=== PATIENT | female | born 1990 | race Caucasian/White ===

== ENCOUNTER 2023-06-21 07:28 | Inpatient (IN) | payer OTHER, SELFPAY ==
[2023-06-21] VITALS (51 sets, daily range): BP systolic 93–124; BP diastolic 68–98; PULSE 71–118; RESP 13–28; TEMP 36.6–36.8; O2SAT 98–100; BMI 18.1
--- NOTE | ~2023-06-21 | US_ITS ---
US abdomen limited INDICATION: Elevated liver function tests PROCEDURE: Realtime right upper abdominal ultrasound. COMPARISON: No prior studies for comparison. FINDINGS: The pancreas is normal without focal mass or pancreatic ductal dilation. Liver echotexture is increased, consistent with fatty infiltration. There is normal directional flow in the portal ve in. The gallbladder is normal without stones, gallbladder wall thickening or pericholecystic fluid. Comm on bile duct measures 2 mm. No sonographic Paul's sign. IMPRESSION: 1: Fatty infiltration of the liver. Reviewed, dictated and finalized at location B. H FINISHING RANGE TENDER
--- NOTE | ~2023-06-21 | MR_ITS ---
MRI of the brain Clinical History: Paresthesias Technique: Axial and sagittal T1-weighted images were acquired. These were followed by axial T2-weigh margy, diffusion weighted, gradient, and FLAIR images. Following intravenous administration of 8 cc Mul tiHance gadolinium, T1-weighted fat-sat imaging was performed in the axial, coronal, and sagittal sophie mac. Findings: There is no abnormal signal in the brain parenchyma. No acute infarct, internal hemorrhage, or mass lesion identified. Ventricles and subarachnoid spaces are unremarkable. Orbits are unremarkable. There is mild right eth moid sinus disease. Remaining paranasal sinuses and mastoids are clear. Major intracranial flow voids appear intact. Sagittal midline structures are intact. No abnormal postcontrast enhancement identified. IMPRESSION: No intracranial abnormality. Mild right ethmoid sinus disease. Reviewed, dictated and finalized at [facility]. [place] [facility]
--- NOTE | ~2023-06-21 | MR_ITS ---
MRI of the thoracic spine Clinical History: Paresthesias Technique: Axial T2-weighted and gradient images, and sagittal T1-weighted, T2-weighted, and STIR rafael ges were acquired. Following intravenous administration of 8 cc MultiHance gadolinium, T1-weighted fa t-sat imaging was performed in the axial and sagittal planes. Findings: There is no fracture or subluxation of the thoracic spine. Vertebral bodies maintain normal height and alignment. No suspicious bone marrow signal abnormality seen. Intraosseous hemangioma not ed in the T6 vertebral body. No disc bulge or herniation seen in the thoracic spine. No spinal canal stenosis or cord compression identified. No epidural mass or collection seen. No abnormal signal seen in the spinal cord. No abnormal postcontrast enhancement identified. Paravert ebral soft tissues are unremarkable. Impression: Unremarkable exam. Reviewed, dictated and finalized at [facility]. LEADER Impression: Unremarkable exam.
--- NOTE | ~2023-06-21 | MR_ITS ---
MRI of the cervical spine Clinical History: Paresthesias Technique: Axial T2-weighted and gradient images, and sagittal T1-weighted, T2-weighted, and STIR rafael ges were acquired. Following intravenous administration of 8 cc MultiHance gadolinium, T1-weighted fa t-sat imaging was performed in the axial and sagittal planes. Findings: There is no fracture or subluxation of the cervical spine. Vertebral bodies maintain normal height and alignment. No bone marrow signal abnormality seen. No disc bulge or herniation seen in the cervical spine. No spinal canal stenosis, cord compression, o r neural foraminal narrowing identified. No epidural mass or collection seen. No abnormal signal seen in the spinal cord. No abnormal postcontrast enhancement identified. Paravert ebral soft tissues are unremarkable. Impression: Unremarkable exam. Reviewed, dictated and finalized at location . TIVE WRITING TEACHER Impression: Unremarkable exam.
--- NOTE | ~2023-06-21 | CT_ITS ---
Non-contrast Head CT History: Numbness Technique: Axial non-contrast imaging of the brain was performed. Dose reduction technique was used on this scan by utilizing automated exposure control and iterative reconstruction technique. The dose -length product (DLP) was 605.33 mGy-cm. Findings: There is no evidence of intracranial hemorrhage, mass lesion, or acute infarct. Brain par enchyma appears normal. The ventricles and subarachnoid spaces are normal in size. The calvarium ap pears normal. The visualized paranasal sinuses and mastoid air cells are clear. Impression: No significant abnormality seen. Reviewed, dictated and finalized at location . T GRADE TEACHER Impression: No significant abnormality seen.
--- NOTE | ~2023-06-21 | MR_ITS ---
EXAMINATION: MR lumbar spine wo/w con DATE: 06/22/2023 09:31 INDICATION: Numbness of the upper thighs and feet. TECHNIQUE: Magnetic resonance imaging (MRI) of the lumbar spine was performed without and with 8 mL M ultiHance intravenous contrast. COMPARISON: None FINDINGS: There is 3 degrees dextrocurvature of lumbar spine. There is mild chronic anterior wedging of T12-L2 vertebral bodies, likely physiologic. There is a Schmorl's node of superior endplate of L2. Intervertebral disc heights are normal. The distal spinal cord signal intensity is normal. The conus medullaris is at L2. The following disc levels are specifically discussed: L1-L2: The disc does not extend beyond the endplate margin. There is mild bilateral facet joint osteo arthritis. There is no neural foraminal stenosis. There is no central canal stenosis. L2-L3: The disc does not extend beyond the endplate margin. There is mild bilateral facet joint osteo arthritis. There is no neural foraminal stenosis. There is no central canal stenosis. L3-L4: The disc does not extend beyond the endplate margin. There is mild bilateral facet joint osteo arthritis. There is no neural foraminal stenosis. There is no central canal stenosis. L4-L5: The disc does not extend beyond the endplate margin. There is mild bilateral facet joint osteo arthritis. There is no neural foraminal stenosis. There is no central canal stenosis. L5-S1: The disc is mildly bulging. There is mild bilateral facet joint osteoarthritis. There is mild bilateral neural foraminal stenosis. There is mild central canal stenosis. IMPRESSION: 1. Mild lumbar spondylosis. Reviewed, dictated and finalized at location A. Y REMOVER IMPRESSION: 1. Mild lumbar spondylosis.
--- NOTE | ~2023-06-21 | XR_ITS ---
EXAMINATION: XR barium swallow modified DATE: 06/23/2023 08:39 INDICATION: Oropharyngeal dysphagia. TECHNIQUE: The patient was given barium-containing material of multiple consistencies to swallow by t patric speech pathologist while I performed fluoroscopy. Fluoroscopy exposure time was 0.6 minutes. The n umber of fluoroscopy images saved to the PACS was 1. Dose-area product was 0.399 Gy-cm^2. FINDINGS: The oral stage, pharyngeal stage, and cervical/esophageal stage of the swallow are normal. IMPRESSION: 1. Normal modified barium swallow. 2. Please refer to the speech therapy report for recommendations. Reviewed, dictated and finalized at location A. GENCY MEDICAL TECH
--- NOTE | 2023-06-21 11:08 | ED.GENADULT ---
HPI - General Adult General Chief complaint: Unspecified Stated complaint: leg numbness Time Seen by Provider: 06/21/23 10:26 History of Present Illness HPI narrative: Ester León is a 33 y/o female with no PMHx / does not take any medications daily who presents with reports of having numbness tingling to her fingertips for about 2 weeks. She states that she was evaluated at an OSH in [place] and was told that she might have carpel tunnel syndrome. She comes here today because she is having worsening numbness to her lower extremities. She states that she has had numbness to her thighs for about 1 year and now over the past two weeks the numbness sensation has moved down her legs and now having severe pain to her toes. She is ambulatory but states it is getting more difficult. Denies any known fever/chills/ cough/ shortness of breath / chest pain. Alert and oriented X 4 Related Data Allergies Allergy/AdvReac Type Severity Reaction Status Date / Time latex Allergy Rash Verified 06/21/23 12:32 Review of Systems Review of Systems: CONSTITUTIONAL: Denies fever, chills, or sweats. EYES: Denies visual changes, redness, or discharge. ENT: Denies rhinorrhea, congestion, sore throat, or otalgia. CARDIOVASCULAR: Denies chest pain, palpitations, or edema. RESPIRATORY: Denies cough or dyspnea. GASTROINTESTINAL: Denies abdominal pain, nausea, vomiting, or diarrhea. GENITOURINARY: Denies dysuria or hematuria. SKIN: Denies rash or itching. MUSCULOSKELETAL: Denies back pain, joint pain, or myalgia. NEUROLOGIC: Denies headache, Complains of numbness to her finger tips and now numbness to her thighs down her lower extremities started about 1 year ago/ getting worse over the past 2 weeks. PSYCHIATRIC: Denies anxiety or depression. Exam Narrative: GENERAL: appears frail/ pale, and in no acute distress. HEAD: Normocephalic, atraumatic. EYES: PERRLA and EOMI. ENT: Nares clear, no rhinorrhea or epistaxis. Mucous membranes moist. Oropharynx without tonsillar hypertrophy exudate or other lesions. NECK: Supple. No adenopathy or masses. No carotid bruits or JVD CHEST: Clear to auscultation. No respiratory distress. No wheezes rales or rhonchi HEART: Regular rate and rhythm. No murmur heard. Normal peripheral pulses. ABDOMEN: Soft, nontender, nondistended, normal active bowel sounds. EXTREMITIES: Normal range of motion. No edema. SKIN: Warm, dry, no rash. NEURO: alert and oriented X 4 - no focal deficit PSYCH: Normal mood and affect. Course Vital Signs Vital signs: Vital Signs Temperature 36.8 C 06/21/23 07:38 Pulse Rate 118 H 06/21/23 07:38 Respiratory Rate 20 06/21/23 07:38 Blood Pressure 112/91 H 06/21/23 07:38 Pulse Oximetry 99 06/21/23 07:38 Oxygen Delivery Room Air 06/21/23 07:38 Temperature 36.8 C 06/21/23 07:38 Pulse Rate 71 06/21/23 16:16 Respiratory Rate 19 06/21/23 16:16 Blood Pressure 117/77 06/21/23 16:16 Pulse Oximetry 100 06/21/23 16:16 Oxygen Delivery Room Air 06/21/23 07:38 Medical Decision Making [facility] Narrative Medical decision making narrative: On exam pt is alert and oriented X 4 She explains having this numbness/decrease sensation that started about a year ago and has become much worse over the past 2 weeks No focal defict - she states the numbness is to her bilateral fingertips and her bilateral thighs down her legs causing pain to her toes. strong pedal push / no lower extremity drift on exam but pt is weak with resisting pressure on her legs bilaterall Heal to abdi is intact but pt is slow to perform Concern for: vitamin deficiency/ multiple sclerosis/ neurological deficit/ Plan to check head ct/ basic labs and consult with Neurology. CBC- stable CMP - hypokalemia - 2.6 lipase - negative UA- trace leuks/ketones/wbc 11-20 COVID- negative RSV- positive Flu- negative Brain CT - No significant abnormality Called and talked with Neurologist Sindi
[2023-06-21 11:27] LABS: Basophils Percent Auto 0.5 % (0.2-1.2); Eosinophils Percent Auto 0.1 % (0-4.4); Hematocrit 44.1 % (37.0-47.0); Hemoglobin 15.5 g/dL (12.0-15.0); Immature Granulocyte Absolute 0.02 K/mm3 (0.00-0.031); Immature Granulocyte Percent A 0.3 % (0-0.5); Lymphocytes Absolute Auto 0.93 K/mm3 (0.9-3.2); Lymphocytes Percent Auto 12.4 % (18.3-44.2); Mean Corpuscular HGB Conc 35.1 g/dl (32-36); Mean Corpuscular Hemoglobin 36.7 pg (26-34); Mean Corpuscular Volume 104.5 fl (80-100); Mean Platelet Volume 10.4 fl (7.4-10.4); Monocytes Absolute Auto 0.5 K/mm3 (0.1-0.6); Monocytes Percent Auto 6.5 % (2.6-8.5); Neutrophils Percent Auto 80.2 % (45.5-73.1); Platelet Count Result 155 k/mm3 (150-375); Red Blood Count 4.22 M/mm3 (4.2-5.4); White Blood Count 7.5 K/mm3 (4.5-10.0)
[2023-06-21 11:42] LABS: Lactic Acid Reflex 1.8 mmol/L (0.7-2.0)
[2023-06-21 11:44] LABS: Alanine Aminotransferase 58 U/L (6-35); Albumin Level 3.4 g/dL (3.5-5.1); Alkaline Phosphatase 113 U/L (38-126); Anion Gap 8 mmol/L (8-16); Aspartate Amino Transferase 105 U/L (14-36); Blood Urea Nitrogen 3 mg/dL (7-17); Calcium 8.3 mg/dL (8.4-10.2); Carbon Dioxide 33 mmol/L (22-30); Chloride 94 mmol/L (98-107); Estimated CRCL calculation 96 ml/min; Estimated Glomerular Filt Rate > 60; Glucose 107 mg/dL (65-110); Lipase 51 U/L (23-300); Potassium 2.6 mmol/L (3.4-5.0); Sodium 135 mmol/L (137-145)
[2023-06-21] MEDS: SODIUM CHLORIDE 0.9% IV 1,000 ML 999 ML IV CONT (12:09)
[2023-06-21 12:10] LABS: Appearance Urine Turbid (Clear); Bacteria Urine None Seen /hpf; Bilirubin Urine 2+ (Negative); Blood Urine Negative (Negative); Color Urine Dark Yellow (Yellow); Glucose Urine UA Negative (Negative); Granular Casts Urine Present /lpf; Hyaline Casts Urine Present /lpf; Ketones Urine Trace mg/dL (Negative); Leukocyte Esterase Ur Trace LEU/UL (Negative); Nitrate Urine Negative (Negative); Non Pathogenic Casts >20; Protein Urine 1+ mg/dL (Negative); Squamous Epithelial Cell Urine Many /hpf (Few); White Blood Cell Casts Urine Present /lpf; pH Urine 5.5 (5.0-9.0)
[2023-06-21 12:16] LABS: Add Urine Microscopic? YES
--- NOTE | 2023-06-21 12:23 | PC.NURSE ---
EDP made aware patient refusing kcl tablets, stating she is unable to swallow them. VORB to attempt kcl powder.
[2023-06-21] MEDS: POTASSIUM CHLORIDE 20 MEQ PACKET (FOR LIQUID) 60 MEQ PO (12:28)
[2023-06-21 12:53] LABS: Influenza A QL RT-PCR Negative (Negative); Influenza B QL RT-PCR Negative (Negative); RSV RNA, RT-PCR Positive (Negative); SARS-CoV-2 RNA PCR Negative (Negative)
[2023-06-21] MEDS: KETOROLAC 30 MG/ML VIAL (*BKC) IV PUSH (13:22)
--- NOTE | 2023-06-21 15:14 | PM.IMHP ---
H&P: HPI History of Present Illness Date/Time: 06/21/23 14:30 Chief Complaint: Weakness and paresthesias. Narrative: This is a pleasant 33-year-old female smoker with depression anxiety presented to the emergency department via private vehicle for evaluation of weakness and paresthesias. The patient provides the following history. About 1 year ago she developed sensation changes and numbness in the upper anterior thighs bilaterally. More recently she has developed paresthesias in the fingertips and pain and numbness to both feet. 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 She has not had any falls, injury, or traumas. She also denies head, neck, and back pain. No bowel incontinence or bladder retention. Her vital signs were stable on arrival to the ED.. Labs were significant for a hemoglobin of 15.5, MCV 104.5, sodium 135, potassium 2.6, chloride 94, carbon dioxide 33, BUN 3, creatinine 0.50, calcium 3.8, AST 105, ALT 58, albumin 3.4. Brain CT showed no significant abnormalities. With further questioning she reports that she has not had much of an appetite for a couple of years and she does not seem to eat much at home. She has frequent loose stools but they have slowed down, now 1 to 2 times per day. She is about 30 lb below her typical weight. Food just does not taste good to her. She denies having a version to food and has no history of eating disorder. She also denies epigastric and abdominal pain, nausea, and vomiting. She has no history of peptic ulcers, thyroid disease, liver disease, or anemia. No headache, visual changes, difficulty speaking or swallowing, focal weakness, chest pain, or palpitations. No concerns for or known exposure to HIV or hepatitis. No family history of demyelinating disease. Review of Systems Review of Systems: Twelve systems were reviewed. She has had a bit of a cough but that is improving. Reports her 6-year-old son has had a cold recently. No fever, chills, or sweats. No headache. No dysuria. Just finished her period. Except as documented, all other systems were reviewed and are negative. [facility] Past Medical History Medical History (Updated 06/21/23 @ 21:30 by Yolanda Lee PA-C) Mitral valve prolapse Surgical History Surgical History (Updated 06/21/23 @ 21:27 by Yolanda Lee PA-C) No history of previous surgery Family History Family History Mother Heart attack Grandparent Cancer Social History Social History (Updated 06/21/23 @ 21:27 by Yolanda Lee PA-C) Social History: Surrogate medical decision maker: Jorge Luis Centeno, significant other. Code status: Full code. Smoking packs per day: 0.5 Smoking cigarettes per day: 10.0 Years smoked: 16 Smoking pack-years: 8.00 Smoking status: Current every day smoker Tobacco type: cigarettes Alcohol intake: current Drinks per week: 6 Substance use: current Substance use type: marijuana Last use: 06-20-2023 Lack of Transportation: No Lack of Food: Never True Current Housing: I Have Housing Concerned About Future Housing: No Difficulty Paying Gas/Electric Bills: No Difficulty Paying for Meds: No Currently Unemployed: No Education: Decline to Answer Difficulty w/ Childcare or Family Care: No Spiritual care concerns: No Meds Home Medications and Allergies Home Medications Medication Instructions Recorded Confirmed Type No Home Medications 06/21/23 06/21/23 History Allergies Allergy/AdvReac Type Severity Reaction Status Date / Time latex Allergy Rash Verified 06/21/23 12:32 Vital Signs Vital Signs - 24 hr 06/21/23 07:38 06/21/23 09:47 06/21/23 10:01 Temperature 98.3 F Pulse Rate 118 H Respiratory Rate 20 Blood Pressure 112/91 H
[2023-06-21] MEDS: CYCLOBENZAPRINE HCL 10 MG TABLET PO (16:13)
[2023-06-21] MEDS: HYDROcodone/acetaminophen (*CRX) 5-325 MG TABLET 1 TAB PO ×2 (16:13→22:02)
[2023-06-21 16:59] LABS: Creatine Kinase 41 U/L (30-135); Magnesium 1.4 mg/dL (1.6-2.3)
[2023-06-21 17:00] LABS: Anion Gap 9 mmol/L (8-16); Blood Urea Nitrogen 3 mg/dL (7-17); Calcium 7.9 mg/dL (8.4-10.2); Carbon Dioxide 27 mmol/L (22-30); Chloride 102 mmol/L (98-107); Estimated CRCL calculation 117 ml/min; Estimated Glomerular Filt Rate > 60; Glucose 93 mg/dL (65-110); Potassium 3.4 mmol/L (3.4-5.0); Sodium 138 mmol/L (137-145)
--- NOTE | 2023-06-21 17:30 | ADMGEN ---
This patient, Ester León, was admitted to Medical Room 240-01. Patient/family oriented to hospital policies and general routines including ID bracelet, bed and alarms, visiting hours, pain management, procedures, bathroom and other care routines, personal items, smoking policy, room service/diet, and visiting hours. Information on how to activate the Rapid Response Team has been discussed. Patient/Family are encouraged to report perceived risks to care and to ask questions if they do not understand what they are told or what they should do.
[2023-06-21 18:07] LABS: Folic Acid 2.6 ng/mL (2.76->20)
[2023-06-21 19:07] LABS: Iron 139 ug/dL (37-170)
[2023-06-21 19:16] LABS: Percent Iron Saturation 55 % (20-50)
[2023-06-21 19:40] LABS: Hepatitis B Surface Antigen Negative (Negative)
[2023-06-21 19:46] LABS: HAV RESULT Negative (Negative); Hepatitis B Core IgM Result Negative (Negative)
[2023-06-21] MEDS: SODIUM CHLORIDE 0.9% IV 1,000 ML 100 ML IV CONT (22:01)
[2023-06-21] MEDS: MAGNESIUM SULF 2 GM/WATER 50ML 2 GM/50 ML BAG IVPB (22:01)
[2023-06-21 22:11] LABS: Hepatitis C Virus Antibody Negative (Negative)
[2023-06-21] MEDS: FOLIC ACID 1 MG/0.2 ML INJ IV PUSH (23:08)
[2023-06-22] VITALS (8 sets, daily range): BP systolic 106–114; BP diastolic 60–80; PULSE 67–90; RESP 17–20; TEMP 36.4–36.7; O2SAT 100; BMI 18.1
[2023-06-22 05:19] LABS: Hematocrit 38.5 % (37.0-47.0); Hemoglobin 13.3 g/dL (12.0-15.0); Mean Corpuscular HGB Conc 34.5 g/dl (32-36); Mean Corpuscular Hemoglobin 36.8 pg (26-34); Mean Corpuscular Volume 106.6 fl (80-100); Mean Platelet Volume 10.7 fl (7.4-10.4); Platelet Count Result 121 k/mm3 (150-375); Red Blood Count 3.61 M/mm3 (4.2-5.4); Red Cell Distribution Width 13.8 % (11.5-14.5); White Blood Count 3.8 K/mm3 (4.5-10.0)
[2023-06-22 05:36] LABS: Alanine Aminotransferase 50 U/L (6-35); Albumin Level 2.4 g/dL (3.5-5.1); Alkaline Phosphatase 85 U/L (38-126); Anion Gap 4 mmol/L (8-16); Aspartate Amino Transferase 89 U/L (14-36); Blood Urea Nitrogen 3 mg/dL (7-17); Calcium 7.4 mg/dL (8.4-10.2); Carbon Dioxide 27 mmol/L (22-30); Chloride 103 mmol/L (98-107); Estimated CRCL calculation 112 ml/min; Estimated Glomerular Filt Rate > 60; Glucose 81 mg/dL (65-110); Magnesium 2.2 mg/dL (1.6-2.3); Potassium 2.6 mmol/L (3.4-5.0); Sodium 134 mmol/L (137-145)
[2023-06-22] MEDS: POTASSIUM CHLORIDE 20 MEQ PACKET (FOR LIQUID) 80 MEQ PO (06:13)
--- NOTE | 2023-06-22 06:36 | PC.NURSE ---
Received a critical potassium of 2.6 at 0535. Notified provider at 0548. Provider said to put in orders for 80 meq PO potassium with sip(s) of water. [Further orders for recheck at 1300 put in as well). When walked in with potassium to pt's room, pt said she could not tolerate oral tablets bc it was too hard to pass down. Asked pharmacy if med could be changed to powder form. Pharmacy changed it. Pt was only able to drink 2 packets worth of potassium and became nauseous. Pt did have about 100 cc of emesis after potassium intake. Called provider at 0630 to notify but no answer.
[2023-06-22] MEDS: HYDROcodone/acetaminophen (*CRX) 5-325 MG TABLET 1 TAB PO ×3 (07:10→19:58)
[2023-06-22] MEDS: POTASSIUM CHLORIDE INJ 40 MEQ in SODIUM CHLORIDE 0.9% IV 500 ML 130 MEQ IVPB (10:38)
[2023-06-22] MEDS: POTASSIUM CHLORIDE 20 MEQ ER TABLET 40 MEQ PO (10:39)
--- NOTE | 2023-06-22 12:36 | WPDNEURCNPN ---
Assessment and Plan Assessment and plan (1) Elevated MCV: Code(s): R71.8 - Other abnormality of red blood cells Status: Acute (2) Numbness: Code(s): R20.0 - Anesthesia of skin Status: Acute (3) Respiratory syncytial virus (RSV) infection: Code(s): B33.8 - Other specified viral diseases Status: Acute (4) Neuropathy: Code(s): G62.9 - Polyneuropathy, unspecified Status: Acute Plan 1. Vitamin deficiency possibly B12 with MCV increased, 2 possibility of demyelinating res at least ruled out by the MRI of the brain cervical and thoracic spine as well as the extrinsic lesion in this regions. 3 elevated hepatic enzymes needs to be pursued further with low albumin 4 B12 levels are 933 but folate levels are only 2.6 with MCV increased hematology consult can be obtained also patient was advised to be followed as an outpatient to have the EMG and nerve conduction study. Consult date: 06/22/23 HPI: Ester León is a 33 year old femaleHas been admitted to the hospital through the emergency room for the complaints of numbness of the lower extremities and also with the information that she was not taking any specific medication, she had been experiencing numbness and tingling in her hands for almost 2 weeks she was initially evaluated at an old [facility] in [place] and was told that she might have carpal tunnel syndrome she came to the emergency room here with the complaints of worsening numbness in her lower extremities she also complained of numbness to her thighs for almost 1 year and now over the past 2 weeks the numbness sensation had moved down her lower extremities patient was ambulatory at the time of visit to the ER and was oriented x4. On initial evaluation in the emergency her neurological examination otherwise was normal vital signs were normal with pulse rate of 118 but temperature 36.8? her CBC was normal so as the [facility] initial CT scan of the head was normal subsequently repeat CBC revealed WBC 3.8 with MCV of 106.6 brain MRI normal, initial CT scan of the head negative for the bleed, MRI of the brain revealed mild lumbar spondylosis, MRI of the cervical spine was also normal negative for demyelinating disease, tumor, or any sensory cords involvement because of the vitamin deficiency thoracic MRI was also negative for the extrinsic or intrinsic lesions. Review of Systems Review of Systems: All systems reviewed & are unremarkable except as noted in HPI and below [facility] Past Medical History Medical History (Updated 06/22/23 @ 12:47 by Dion Hassan MD) Mitral valve prolapse Surgical History Surgical History (Updated 06/21/23 @ 21:27 by Yolanda Lee PA-C) No history of previous surgery Family History Family History Mother Heart attack Grandparent Cancer Social History Social History (Updated 06/21/23 @ 21:27 by Yolanda Lee PA-C) Social History: Surrogate medical decision maker: Jorge Luis Centeno, significant other. Code status: Full code. Smoking packs per day: 0.5 Smoking cigarettes per day: 10.0 Years smoked: 16 Smoking pack-years: 8.00 Smoking status: Current every day smoker Tobacco type: cigarettes Alcohol intake: current Drinks per week: 6 Substance use: current Substance use type: marijuana Last use: 06-20-2023 Lack of Transportation: No Lack of Food: Never True Current Housing: I Have Housing Concerned About Future Housing: No Difficulty Paying Gas/Electric Bills: No Difficulty Paying for Meds: No Currently Unemployed: No Education: Decline to Answer Difficulty w/ Childcare or Family Care: No Spiritual care concerns: No Meds Home Medications and Allergies Home Medications Medication Instructions Recorded Confirmed Type No Home Medications 06/21/23 06/21/23 History Allergies Allergy/AdvReac Type Severity Reaction Status Date / Time l
[2023-06-22] MEDS: KCL 40 MEQ/0.9% SOD CHL 1,000 ML 150 ML IV CONT ×2 (13:38→20:01)
[2023-06-22 15:19] LABS: Alanine Aminotransferase 47 U/L (6-35); Albumin Level 2.4 g/dL (3.5-5.1); Alkaline Phosphatase 89 U/L (38-126); Anion Gap 5 mmol/L (8-16); Aspartate Amino Transferase 86 U/L (14-36); Bilirubin,Total 0.7 mg/dL (0.2-1.3); Blood Urea Nitrogen 3 mg/dL (7-17); Calcium 7.7 mg/dL (8.4-10.2); Carbon Dioxide 24 mmol/L (22-30); Chloride 107 mmol/L (98-107); Estimated CRCL calculation 143 ml/min; Estimated Glomerular Filt Rate > 60; Glucose 109 mg/dL (65-110); Potassium 4.1 mmol/L (3.4-5.0); Sodium 136 mmol/L (137-145)
--- NOTE | 2023-06-22 16:58 | PM.IMPN ---
Progress Note: A&P Assessment and Plan (1) Neuropathy: Code(s): G62.9 - Polyneuropathy, unspecified Status: Acute (2) Paresthesias: Code(s): R20.2 - Paresthesia of skin Status: Acute (3) Numbness: Code(s): R20.0 - Anesthesia of skin Status: Acute (4) Acute hypokalemia: Code(s): E87.6 - Hypokalemia Status: Acute (5) Elevated MCV: Code(s): R71.8 - Other abnormality of red blood cells Status: Acute (6) Respiratory syncytial virus (RSV) infection: Code(s): B33.8 - Other specified viral diseases Status: Acute Plan a pleasant female with ongoing history of numbness which waxes and wanes, unfortunately has not been worked up in detail. we could look into more here before writing her symptoms off in a young female with IBS, anxiety and depression. neurology consult appreciated. recommend outpatient EMG and nerve conduction studies as MRI T C and L spine and MRI brain unremarkable for acute pathology. she has a long history of oropharyngeal dysphagia and because of that hasn't been able to keep food down every day for some time. this is likely the cause of her nutritional deficiencies. potassium was replaced but her symptoms have not changed, so that is ruled out. she does have mild folate deficiency, checking homocysteine and MMA levels and consult oncology in light of her pancytopenia. the culprit could be the folate deficiency, however with this undiagnosed etiology of transaminitis (hep screen neg) and pancytopenia it might be worthwhile to workup for immune deficiency and hepatic related issues that could also be causing polyneuropathy as for her oropharyngeal dysphagia, pending MBS, will probably ask GI assistance as well tomorrow More than 35 minutes spent on chart review, patient interaction and assessment and plan. Subjective Date/time seen: 06/22/23 16:58 Interval history: naoe. patient still complains of numbness at upper abdomen and b/l legs down to feet. she explains a further detailed history of longstanding inability to swallow and sometimes regurgitating food. she has ibs diarrhea type which has been going on for years which is slowly resolving now. she eats alot of fruits and veggies. she hasn't known about any liver issues in the past. Review of Systems Review of Systems: All systems reviewed & are unremarkable except as noted in HPI and below Exam Const: General: comfortable and no acute distress Eyes: Pupils: Equal, round and reactive pupils present Neck: Neck: supple Resp: Effort & Inspection: normal respiratory effort Auscultation: clear to auscultation bilaterally, no crackles, no rales and no rhonchi Cardio: Rate: regular rate Rhythm: regular rhythm Heart sounds: no gallops, no murmurs and no rubs GI: GI Palp: Yes Soft to palpation and No Tenderness to palpation present (GI) Neuro: Motor exam (neuro): 5/5 motor strength present throughout Other: decreased light sensation at epigastrum and b/l LE's from waist down to ankles. Extrem: General: no edema Psych: Affect: normal affect Objective Data Vital Signs Vital Signs: Vital Signs - 24 hr 06/21/23 18:12 06/21/23 18:19 06/21/23 21:54 Temperature 97.8 F Pulse Rate 78 Respiratory Rate 20 Blood Pressure 107/74 Pulse Oximetry 98 99 100 Oxygen Delivery Room Air Room Air Fraction of Inspired Oxygen 21 06/21/23 20:21 06/21/23 20:00 06/22/23 00:00 Temperature Pulse Rate 80 76 Respiratory Rate Blood Pressure Pulse Oximetry Oxygen Delivery Room Air Fraction of Inspired Oxygen 06/22/23 04:00 06/22/23 05:18 06/22/23 08:00 Temperature 97.6 F Pulse Rate 71 78 Respiratory Rate 20 Blood Pressure 106/71 Pulse Oximetry 100 Oxygen Delivery Room Air Fraction of Inspired Oxygen 06/22/23 12:00 06/22/23 14:19 Temperature 98.0 F Pulse Rate 85 88 Respiratory Rate 18 Blood Pressure 114/80 Pulse Oximetry
[2023-06-23] VITALS: PULSE 73
[2023-06-23 00:12] LABS: Anion Gap 6 mmol/L (8-16); Calcium 7.8 mg/dL (8.4-10.2); Carbon Dioxide 19 mmol/L (22-30); Chloride 111 mmol/L (98-107); Estimated CRCL calculation 143 ml/min; Estimated Glomerular Filt Rate > 60; Glucose 98 mg/dL (65-110); Magnesium 1.7 mg/dL (1.6-2.3); Potassium 4.9 mmol/L (3.4-5.0); Sodium 136 mmol/L (137-145)
[2023-06-23] MEDS: HYDROcodone/acetaminophen (*CRX) 5-325 MG TABLET 1 TAB PO (01:57)
[2023-06-23 02:26] LABS: Blood Urea Nitrogen < 2 mg/dL (7-17)
[2023-06-23 04:00] VITALS: PULSE 72
[2023-06-23] MEDS: KCL 40 MEQ/0.9% SOD CHL 1,000 ML 150 ML IV CONT (04:08)
[2023-06-23 05:14] VITALS: BP 100/67; PULSE 81; RESP 17; TEMP 36.7; O2SAT 100
[2023-06-23 06:19] LABS: Hematocrit 39.2 % (37.0-47.0); Hemoglobin 13.1 g/dL (12.0-15.0); Mean Corpuscular HGB Conc 33.4 g/dl (32-36); Mean Corpuscular Hemoglobin 37.3 pg (26-34); Mean Corpuscular Volume 111.7 fl (80-100); Mean Platelet Volume 10.5 fl (7.4-10.4); Platelet Count Result 107 k/mm3 (150-375); Red Blood Count 3.51 M/mm3 (4.2-5.4); White Blood Count 3.9 K/mm3 (4.5-10.0)
[2023-06-23 06:32] LABS: Alanine Aminotransferase 50 U/L (6-35); Albumin Level 2.1 g/dL (3.5-5.1); Alkaline Phosphatase 84 U/L (38-126); Anion Gap 1 mmol/L (8-16); Aspartate Amino Transferase 100 U/L (14-36); Bilirubin,Total 0.7 mg/dL (0.2-1.3); Calcium 7.4 mg/dL (8.4-10.2); Carbon Dioxide 20 mmol/L (22-30); Chloride 112 mmol/L (98-107); Estimated CRCL calculation 143 ml/min; Estimated Glomerular Filt Rate > 60; Glucose 77 mg/dL (65-110); Magnesium 1.5 mg/dL (1.6-2.3); Potassium 5.6 mmol/L (3.4-5.0); Sodium 133 mmol/L (137-145)
[2023-06-23 06:43] LABS: Blood Urea Nitrogen < 2 mg/dL (7-17)
--- NOTE | 2023-06-23 07:32 | ECG_ITS ---
Measurements Intervals [place] Rate: 75 P: 56 MO: 121 QRS: 51 QRSD: 77 T: 71 QT: 392 QTc: 441 Interpretive Statements SINUS RHYTHM LOW QRS VOLTAGE IN LIMB LEADS BASELINE WANDER- AVL BORDERLINE ECG NO PREVIOUS ECG AVAILABLE FOR COMPARISON Electronically Signed On 06-23-2023 7:51:25 SUPERVISOR TELLERS by Jayme Mcneal D.O.
[2023-06-23 08:00] VITALS: PULSE 87
[2023-06-23] MEDS: FUROSEMIDE INJ 40 MG/4 ML VIAL 20 MG IV PUSH (08:20)
--- NOTE | 2023-06-23 09:14 | PCSTNOTE ---
Please refer to the Bedside Swallow Evaluation in the EMR. Please note, silent aspiration cannot be ruled out at bedside.
--- NOTE | 2023-06-23 09:14 | PCSTNOTE ---
Please refer to the Modified Barium Swallow Evaluation in the EMR. There was a note incorrectly placed that a Bedside Swallow Evaluation was done, but that is incorrect; the Modified Barium Swallow Evaluation was completed today.
[2023-06-23 09:42] VITALS: PULSE 81; RESP 17; O2SAT 100
[2023-06-23 10:12] LABS: Anion Gap 5 mmol/L (8-16); Calcium 7.8 mg/dL (8.4-10.2); Carbon Dioxide 21 mmol/L (22-30); Chloride 108 mmol/L (98-107); Estimated CRCL calculation 143 ml/min; Estimated Glomerular Filt Rate > 60; Glucose 85 mg/dL (65-110); Potassium 4.9 mmol/L (3.4-5.0); Sodium 134 mmol/L (137-145)
[2023-06-23 10:18] LABS: Blood Urea Nitrogen < 2 mg/dL (7-17)
--- NOTE | 2023-06-23 11:01 | PC.NURSE ---
On 06/23/23, the student, [Holger Fleming], provided care and completed [facility] documentation on this patient. I have reviewed the student's documentation and agree with the findings.
--- NOTE | 2023-06-23 11:05 | WPDNEURCNPN ---
Assessment and Plan Assessment and plan (1) Numbness: Code(s): R20.0 - Anesthesia of skin Status: Acute (2) Paresthesias: Code(s): R20.2 - Paresthesia of skin Status: Acute (3) Neuropathy: Code(s): G62.9 - Polyneuropathy, unspecified Status: Acute Plan Ms. León is a 33 year old female with a one year history of paraesthesias in her thighs, presenting for worsening numbness/difficulty ambulating for the past few weeks. Given the low folate and significant weight loss, concern that the symptoms may be due to vitamin deficiency/poor nutrition. However, subacute presentation of worsening paraesthesias, I would also consider AIDP/GBS -- she has absent lower extremity reflexes (which may very well be chronic/related to neuropathy). MRI of neuraxis unrevealing. - With progression of symptoms, I would recommend LP to evaluate for findings suggestive of GBS -- check glucose, protein, cell count, culture/gram stain, HSV, Lyme - If testing is negative will need EMG/NCS which unfortunately would have to be done as outpatient Consult date: 06/23/23 Reason for consult: Lower extremity parasthesias HPI: Ester León is a 33 year old female with a history of mitral valve prolapse presenting for weakness and paraesthesias in the lower extremities. Patient reports that about a year ago, she started to develop numbness in both thighs, this had been stable until several weeks ago, the numbness progressed down to her legs (but not involving feet). She is at the point that she cannot walk independently. She reports having febrile illness about 2-3 weeks ago. She was initially evaluated at [facility] for the symptoms previously and was told she had likely had carpal tunnel syndrome, but she denies any symptoms in her hands. She has not had any incontinence. When she presented to [facility] her lab work was significant for elevated liver enzymes, elevated MCV, and low folate of 2.7. Per chart review, patient has poor appetite and lost weight (about 30 lbs). Her B12 levels are normal. MRI brain, cervical, thoracic spine, lumbar spine are all unrevealing. Review of Systems Review of Systems: All systems reviewed & are unremarkable except as noted in HPI and below PMFSH Past Medical History Medical History Mitral valve prolapse Surgical History Surgical History No history of previous surgery Family History Family History Mother Heart attack Grandparent Cancer Social History Social History Social History: Surrogate medical decision maker: Jorge Luis Centeno, significant other. Code status: Full code. Smoking packs per day: 0.5 Smoking cigarettes per day: 10.0 Years smoked: 16 Smoking pack-years: 8.00 Smoking status: Current every day smoker Tobacco type: cigarettes Alcohol intake: current Drinks per week: 6 Substance use: current Substance use type: marijuana Last use: 06-20-2023 Lack of Transportation: No Lack of Food: Never True Current Housing: I Have Housing Concerned About Future Housing: No Difficulty Paying Gas/Electric Bills: No Difficulty Paying for Meds: No Currently Unemployed: No Education: Decline to Answer Difficulty w/ Childcare or Family Care: No Spiritual care concerns: No Meds Home Medications and Allergies Home Medications Medication Instructions Recorded Confirmed Type No Home Medications 06/21/23 06/21/23 History Allergies Allergy/AdvReac Type Severity Reaction Status Date / Time latex Allergy Rash Verified 06/21/23 12:32 Vital Signs Vital Signs - 24 hr 06/22/23 12:00 06/22/23 14:19 06/22/23 16:00 Temperature 36.7 C Pulse Rate 85 88 67 Respiratory Rate 18 Blood Pressure 114/80 Pulse Oximetry
--- NOTE | 2023-06-23 12:11 | PM.DS ---
DS: Admitting Diagnosis Discharge Date 06/23/23 Admitting Diagnosis numbness DS: Discharge Diagnosis Discharge Diagnosis (1) Neuropathy: Code(s): G62.9 - Polyneuropathy, unspecified Status: Acute (2) Respiratory syncytial virus (RSV) infection: Code(s): B33.8 - Other specified viral diseases Status: Acute (3) Paresthesias: Code(s): R20.2 - Paresthesia of skin Status: Acute (4) Numbness: Code(s): R20.0 - Anesthesia of skin Status: Acute (5) Acute hypokalemia: Code(s): E87.6 - Hypokalemia Status: Acute DS: Summary Hospital Course Hospital Course: A 33F w/ PMH IBS, anxiety and depression with chronic numbness of b/l legs and upper abdomen, presented with subacute worsening and complains of difficulty walking. Hypokalemia was replaced, that did not affect her symptoms. MBS was normal. she had complained of difficulty passing food, sometimes spitting it up on 06/23 neurology consultation was appreciated, it was recommended she have an LP but the patient declined that to Dr. Noel. On further discussion, patient wanted to leave and did not want any more immediate test or workup. She was able to verbalize her current problems and risks of forgoing management in her own words. She refuses everything currently, including but not limited to further GI workup, EGD, further oncology workup, further neurology workup, LP, further monitoring of her electrolytes and supplementation. She understands and acknowledges that refusing everything and leaving on 06/23 could result in worsening of her condition which may lead to permanent disability and even . She is advised to follow up with her PCP immediately to conduct further testing, and investigate why she has elevated liver enzymes as well. More than 30 minutes spent on discharge planning and documentation. Time Spent with Patient Time attestation: Total time spent providing and/or coordinating discharge services: Exam Const: General: comfortable and in distress (anxious, apprehensive, tearful at times) Eyes: Pupils: Equal, round and reactive pupils present Neck: Neck: supple Resp: Effort & Inspection: normal respiratory effort Auscultation: clear to auscultation bilaterally Cardio: Rate: regular rate Rhythm: regular rhythm Heart sounds: no gallops, no murmurs and no rubs GI: GI Palp: Yes Soft to palpation and No Tenderness to palpation present (GI) Neuro: Motor exam (neuro): 5/5 motor strength present throughout Sensory Exam: No normal sensation Extrem: General: no edema DS: Data Data Completed and Pending Labs on day of discharge: Labs from last 24 hours 06/23/23 06/23/23 06/22/23 09:58 06:04 23:53 WBC 3.9 L RBC 3.51 L Hgb 13.1 Hct 39.2 MCV 111.7 H MCH 37.3 H MCHC 33.4 RDW 14.0 Plt Count 107 L MPV 10.5 H Sodium 134 L 133 L 136 L Potassium 4.9 5.6 H 4.9 Chloride 108 H 112 H 111 H Carbon Dioxide 21 L 20 L 19 L Anion Gap 5 L 1 L 6 L BUN < 2 L < 2 L < 2 L Creatinine 0.30 L 0.30 L 0.30 L Estim Creat Clear Calc 143 143 143 Estimated GFR > 60 > 60 > 60 Glucose 85 77 98 Calcium 7.8 L 7.4 L 7.8 L Magnesium 1.5 L 1.7 Total Bilirubin 0.7 AST 100 H ALT 50 H Alkaline Phosphatase 84 Total Protein 5.0 L Albumin 2.1 L Methylmalonic Acid Homocysteine 06/22/23 06/22/23 14:59 04:41 WBC RBC Hgb Hct MCV MCH MCHC RDW Plt Count MPV Sodium 136 L Potassium 4.1 Chloride 107 Carbon Dioxide 24 Anion Gap 5 L BUN 3 L Creatinine 0.30 L Estim Creat Clear Calc 143 Estimated GFR > 60 Glucose 109 Calcium 7.7 L Magnesium 2.0 Total Bilirubin 0.7 AST 86 H ALT 47 H Alkaline Phosphatase 89 Total Protein 5.0 L Albumin 2.4 L Methylmalonic Acid Pending Homocysteine Pending Discharge Plan Discharge Attending physician on discharge: Edy
--- NOTE | 2023-06-23 12:59 | PC.NURSE ---
Provider is willing to write discharge order for patient who is stating that they need to leave r/t childcare issues at home. Patient understands that provider recommends that she stay and continue being treated/be seen by recommended consults. Pt verbalizes understanding that if she experiences any worsening symptoms she is to return to the ER.
[2023-06-26 02:19] LABS: Methylmalonic Acid 91 nmol/L (87-318)
[2023-06-28 13:32] LABS: Homocysteine 28.3 umol/L (<10.4)
== END 2023-06-23 12:40 | disposition home or self-care (01) | DRG 48 ==
LOC: ANHED 10:33 → ANH3MEDSUR 14:56 → ANH2MED 17:01
PROVIDERS: General Practice; Physician Assistant; Admitting Provider Student in an Organized Health Care Education/Training Program; Emergency Provider Nurse Practitioner Family; Visit Provider Student in an Organized Health Care Education/Training Program
DX: G62.9 Polyneuropathy, unspecified (principal); B33.8 Other specified viral diseases; D61.818 Other pancytopenia; E87.6 Hypokalemia; E86.0 Dehydration; E53.8 Deficiency of other specified B group vitamins; F41.9 Anxiety disorder, unspecified; F32.A Depression, unspecified; F17.210 Nicotine dependence, cigarettes, uncomplicated; I34.1 Nonrheumatic mitral (valve) prolapse; K58.0 Irritable bowel syndrome with diarrhea; M47.816 Spondylosis without myelopathy or radiculopathy, lumbar region; R13.12 Dysphagia, oropharyngeal phase
CPT/HCPCS: 36415; 70450; 70553; 72156; 72157; 72158; 76705; 80048; 80053; 80074; 81001; 81025; 82550; 82607; 82728; 82746; 83090; 83540; 83550; 83605; 83690; 83735; 83921; 84443; 85025; 85027; 87086; 87088; 87637; 92611; 93005; 96360; 99285; A9270; A9577; J1885; J1940; J3475; J3480; J7030; J7040

== ENCOUNTER 2023-10-31 13:31 | Inpatient (IN) | payer OTHER, SELFPAY ==
--- NOTE | ~2023-10-31 | MR_ITS ---
EXAMINATION: MR thoracic spine wo/w con DATE: 11/04/2023 07:05 INDICATION: Progressive weakness in the upper and lower extremities. TECHNIQUE: Magnetic resonance imaging (MRI) of the thoracic spine was performed without and with 6 mL MultiHance intravenous contrast. COMPARISON: Thoracic spine MRI 06/22/2023 FINDINGS: Bone alignment is normal. There is mild chronic anterior wedging of T7 vertebral body. Ther e is a hemangioma in T6 vertebral body. Intervertebral disc heights are normal. The discs do not exte nd beyond the endplate margins. There is multilevel mild facet joint osteoarthritis. No neural forami nal stenosis or central canal stenosis. The spinal cord signal intensity is normal. IMPRESSION: 1. Mild thoracic facet joint osteoarthritis. Reviewed, dictated and finalized at location A.
--- NOTE | ~2023-10-31 | NM_ITS ---
EXAM: NM gastric emptying study DATE: 11/04/2023 11:03 INDICATION: Nausea. Weight loss. TECHNIQUE: The patient was given a meal consisting of 2 scrambled eggs labeled with 0.972 mCi Tc-99m sulfur colloid, 2 slices of toast, two packages of jam, and approximately 120 mL of water. The patien t refused the exam after ingesting very little. No images were obtained. COMPARISON: None. FINDINGS: None. IMPRESSION: 1. The patient refused the exam after ingesting very little of the radiolabeled meal. Reviewed, dictated and finalized at location A.
--- NOTE | ~2023-10-31 | XR_ITS ---
EXAMINATION: XR lumbar puncture diagnostic DATE: 11/01/2023 16:16 INDICATION: Guillain-[place] syndrome TECHNIQUE: The procedure including the risks and benefits was discussed with the patient. Risks discu ssed included spinal headache, cerebrospinal fluid leak, bleeding, and infection. The patient underst ood the risks and agreed to proceed. A timeout was performed to verify the patient's name, date of , and procedure to be performed. The skin overlying the L4-L5 level was prepped and draped in usual sterile fashion. Subcutaneous 1% lidocaine was used for local anesthesia. A 22 gauge spinal n eedle was advanced under fluoroscopic guidance. The needle was removed and the entry site was cleaned and dressed. There were no immediate complications. A total of 1 fluoroscopic image(s) were obtaine d. The amount of fluoroscopy time used during this procedure was 0.1 minutes. There were no immediate complications. FINDINGS: Real-time fluoroscopy demonstrates the needle at the L4-L5 level. Opening pressure was 14 c m water. (Normal range is variably defined as 6-20 cm water and up to 25 cm water in obese patients. Pressure >25 cm water is one of the modified Dandy criteria for idiopathic intracranial hypertension) . 15 mL of clear, colorless fluid was collected in 4 tubes. IMPRESSION: 1. Successful fluoro-guided lumbar puncture. Reviewed, dictated and finalized at location A.
--- NOTE | ~2023-10-31 | XR_ITS ---
EXAMINATION: XR chest 2V DATE: 11/04/2023 10:32 INDICATION: Shortness of breath. TECHNIQUE: Frontal and lateral views of the chest were obtained. COMPARISON: None. FINDINGS: There is no pneumonia, pleural effusion, or pneumothorax. The heart size is normal. IMPRESSION: 1. No acute cardiopulmonary disease. Reviewed, dictated and finalized at location A.
--- NOTE | ~2023-10-31 | MR_ITS ---
EXAMINATION: MR brain/brain stem wo/w con DATE: 11/04/2023 07:05 INDICATION: Progressive weakness in the upper and lower extremities. TECHNIQUE: Magnetic resonance imaging (MRI) of the brain and brainstem was performed without and with 6 mL MultiHance intravenous contrast. COMPARISON: Head CT 06/21/2023 FINDINGS: There is no intracranial hemorrhage, acute infarction, or abnormal intracranial mass lesion . The ventricles are normal in size. There is mild mucosal thickening in the maxillary sinuses. There is a trace right mastoid effusion. The orbits are normal. IMPRESSION: 1. Normal brain. Reviewed, dictated and finalized at location A. IMPRESSION: 1. Normal brain.
--- NOTE | ~2023-10-31 | MR_ITS ---
EXAMINATION: MR cervical spine wo/w con DATE: 11/04/2023 07:05 INDICATION: Progressive weakness in the upper and lower extremities. TECHNIQUE: Magnetic resonance imaging (MRI) of the cervical spine was performed without and with 6 mL MultiHance intravenous contrast. COMPARISON: Cervical spine MRI 06/22/2023 FINDINGS: Bone alignment is normal. Vertebral body heights and intervertebral disc heights are normal . The spinal cord signal intensity is normal. The following disc levels are specifically discussed: C2-C3: The disc does not extend beyond the endplate margin. There is no uncovertebral joint osteoarth ritis. There is no facet joint osteoarthritis. There is no neural foraminal stenosis. There is no clifford tral canal stenosis. C3-C4: The disc does not extend beyond the endplate margin. There is no uncovertebral joint osteoarth ritis. There is mild bilateral facet joint osteoarthritis. There is no neural foraminal stenosis. The re is no central canal stenosis. C4-C5: The disc does not extend beyond the endplate margin. There is no uncovertebral joint osteoarth ritis. There is no facet joint osteoarthritis. There is no neural foraminal stenosis. There is no clifford tral canal stenosis. C5-C6: The disc does not extend beyond the endplate margin. There is no uncovertebral joint osteoarth ritis. There is no facet joint osteoarthritis. There is no neural foraminal stenosis. There is no clifford tral canal stenosis. C6-C7: The disc does not extend beyond the endplate margin. There is no uncovertebral joint osteoarth ritis. There is no facet joint osteoarthritis. There is no neural foraminal stenosis. There is no clifford tral canal stenosis. C7-T1: The disc does not extend beyond the endplate margin. There is no uncovertebral joint osteoarth ritis. There is moderate bilateral facet joint osteoarthritis. There is mild bilateral neural foramin al stenosis. There is no central canal stenosis. IMPRESSION: 1. Mild cervical spondylosis. Reviewed, dictated and finalized at location A.
--- NOTE | ~2023-10-31 | XR_ITS ---
EXAMINATION: XR fl Dobhoff insert/rad w img DATE: 11/04/2023 14:20 INDICATION: Nausea and weight loss. TECHNIQUE: I placed a nasoenteric tube under fluoroscopic guidance. The number of images was 1. The f luoroscopy exposure time was 0.6 minutes. COMPARISON: None. FINDINGS: The nasoenteric tube tip is in the stomach. IMPRESSION: 1. Fluoroscopy guided nasoenteric tube placement with tip in the stomach. Reviewed, dictated and finalized at location A.
--- NOTE | ~2023-10-31 | MR_ITS ---
EXAMINATION: MR lumbar spine wo/w con DATE: 11/04/2023 07:05 INDICATION: Progressive weakness in the upper and lower extremities. TECHNIQUE: Magnetic resonance imaging (MRI) of the lumbar spine was performed without and with 6 mL M ultiHance intravenous contrast. COMPARISON: Lumbar spine MRI 06/22/2023 FINDINGS: Bone alignment is normal. There is mild chronic anterior wedging of T11-L2 vertebral bodies . There is a Schmorl's node of superior endplate of L2. Intervertebral disc heights are normal. The d istal spinal cord signal intensity is normal. The conus medullaris is at L1-L2. The following disc le vels are specifically discussed: L1-L2: The disc does not extend beyond the endplate margin. There is no facet joint osteoarthritis. T here is no neural foraminal stenosis. There is no central canal stenosis. L2-L3: The disc does not extend beyond the endplate margin. There is mild bilateral facet joint osteo arthritis. There is no neural foraminal stenosis. There is no central canal stenosis. L3-L4: The disc does not extend beyond the endplate margin. There is no facet joint osteoarthritis. T here is no neural foraminal stenosis. There is no central canal stenosis. L4-L5: The disc does not extend beyond the endplate margin. There is mild bilateral facet joint osteo arthritis. There is no neural foraminal stenosis. There is no central canal stenosis. L5-S1: The disc does not extend beyond the endplate margin. There is mild bilateral facet joint osteo arthritis. There is no neural foraminal stenosis. There is no central canal stenosis. IMPRESSION: 1. Mild lumbar spondylosis. Reviewed, dictated and finalized at location A. IMPRESSION: 1. Mild lumbar spondylosis.
[2023-10-31 13:33] VITALS: BP 96/71; PULSE 58; RESP 16; TEMP 36.5; O2SAT 88
[2023-10-31 14:33] VITALS: BP 107/85; PULSE 87; RESP 15; O2SAT 100
--- NOTE | 2023-10-31 17:27 | ED.GENADULT ---
HPI - General Adult General Chief complaint: Unspecified Stated complaint: my hands are tight and i can barely feel my feet Time Seen by Provider: 10/31/23 16:52 Source: patient and old records reviewed Mode of arrival: ambulatory Limitations: no limitations History of Present Illness HPI narrative: Patient is a 33-year-old female who presents to the ED with lower extremity pain. Patient reports having pain and intermittent paresthesias in her lower extremities from her knees down to the tips of her toes bilaterally since mid last year. She was admitted to the hospital last May for similar symptoms and was seen by Neurology at that time. Diagnosed with peripheral neuropathy. Had a normal MRI of her brain, cervical, thoracic, lumbar spine. Neurology recommended a lumbar puncture during admission and patient refused. Patient was referred to have outpatient nerve conduction studies, but never followed up with this, states she was never able to get a hold of neurology. Has also been evaluated at [facility] for this. States pain has progressively worsened to the point she is having trouble walking, requires a Rollator for assistance with ambulation. Has trouble caring for her family at home. States pain makes her nauseous to the point she has not been eating much. Has lost significant amount of weight. Has not been taking anything for the pain. Has previously been on duloxetine and gabapentin in the past, but is not currently on these medications. Denies fevers, vomiting, abdominal pain. Related Data Home Medications Medication Instructions Recorded Confirmed No Home Medications 06/21/23 06/21/23 Allergies Allergy/AdvReac Type Severity Reaction Status Date / Time latex Allergy Rash Verified 10/31/23 17:45 Review of Systems Review of Systems: CONSTITUTIONAL: Denies fever, chills, or sweats. GASTROINTESTINAL: Reports nausea. Denies vomiting. MUSCULOSKELETAL: See HPI. NEUROLOGIC: See HPI. All systems reviewed & are unremarkable except as noted in HPI and below PMFSH Past Medical History Medical History Mitral valve prolapse Surgical History Surgical History No history of previous surgery Family History Family History Mother Heart attack Grandparent Cancer Social History Social History Social History: Surrogate medical decision maker: Jorge Luis Centeno, significant other. Code status: Full code. Smoking packs per day: 0.5 Smoking cigarettes per day: 10.0 Years smoked: 16 Smoking pack-years: 8.00 Smoking status: Current every day smoker Tobacco type: cigarettes Alcohol intake: current Drinks per week: 6 Substance use: current Substance use type: marijuana Last use: 06-20-2023 Lack of Transportation: No Lack of Food: Never True Current Housing: I Have Housing Concerned About Future Housing: No Difficulty Paying Gas/Electric Bills: No Difficulty Paying for Meds: No Currently Unemployed: No Education: Decline to Answer Difficulty w/ Childcare or Family Care: No Spiritual care concerns: No Exam Narrative: GENERAL: Ill-appearing, severely malnourished/emaciated appearing, anxious/tearful. Wt: 32.8. BMI: 14.1. HEAD: Normocephalic, atraumatic. EYES: PERRL/EOMI, conjunctivae clear bilaterally. No nystagmus. ENT: Poor dentition. MMs dry. NECK: Supple. No meningeal signs. RESPIRATORY: Airway patent, respirations nonlabored. Clear to auscultation bilaterally, no rales, rhonchi, wheezing. CARDIOVASCULAR: Borderline tachycardic with regular rhythm without murmurs, rubs, or gallops. Pedal pulses 2+ and equal bilaterally. MUSCULOSKELETAL: Moves all extremities. No gross deformities. SKIN: Warm, dry, normal color. No rashes
[2023-10-31 17:35] LABS: Basophils Percent Auto 0.4 % (0.2-1.2); Eosinophils Percent Auto 0.2 % (0-4.4); Hematocrit 38.4 % (37.0-47.0); Hemoglobin 13.8 g/dL (12.0-15.0); Immature Granulocyte Absolute 0.01 K/mm3 (0.00-0.031); Immature Granulocyte Percent A 0.2 % (0-0.5); Lymphocytes Absolute Auto 1.16 K/mm3 (0.9-3.2); Lymphocytes Percent Auto 22.4 % (18.3-44.2); Mean Corpuscular HGB Conc 35.9 g/dl (32-36); Mean Corpuscular Hemoglobin 39.3 pg (26-34); Mean Corpuscular Volume 109.4 fl (80-100); Mean Platelet Volume 9.5 fl (7.4-10.4); Monocytes Absolute Auto 0.3 K/mm3 (0.1-0.6); Monocytes Percent Auto 6.4 % (2.6-8.5); Neutrophils Absolute Auto 3.6 K/mm3 (1.3-6.7); Neutrophils Percent Auto 70.4 % (45.5-73.1); Platelet Count Result 219 k/mm3 (150-375); Red Blood Count 3.51 M/mm3 (4.2-5.4); Red Cell Distribution Width 14.6 % (11.5-14.5); White Blood Count 5.2 K/mm3 (4.5-10.0)
--- NOTE | 2023-10-31 17:38 | ECG_ITS ---
Measurements Intervals [place] Rate: 98 P: * ND: * QRS: 85 QRSD: 85 T: 242 QT: 300 AVG RR 610 QTc: 355 QTcB 384 QTcF 353 Interpretive Statements PROBABLE SINUS RHYTHM, HOWEVER SIGNIFICANT BASELINE ARTIFACT ST DEVIATION AND MODERATE T-WAVE ABNORMALITY, CONSIDER LATERAL ISCHEMIA [0.1+ mV T WAVE IN I/aVL/V5/V6] ST DEVIATION AND MODERATE T-WAVE ABNORMALITY, CONSIDER INFERIOR ISCHEMIA [0.1+ mV T WAVE IN II/aVF] ABNORMAL ECG SEE SCANNED COPY FOR SIGNATURE MTDD
[2023-10-31 17:57] LABS: Alanine Aminotransferase 28 U/L (6-35); Albumin Level 3.4 g/dL (3.5-5.1); Alkaline Phosphatase 94 U/L (38-126); Aspartate Amino Transferase 60 U/L (14-36); Bilirubin,Total 1.1 mg/dL (0.2-1.3); Blood Urea Nitrogen 15 mg/dL (7-17); Carbon Dioxide > 40 mmol/L (22-30); Chloride 88 mmol/L (98-107); Estimated Glomerular Filt Rate > 60; Glucose 97 mg/dL (65-110); Magnesium 1.9 mg/dL (1.6-2.3); Potassium 2.4 mmol/L (3.4-5.0); Sodium 132 mmol/L (137-145)
[2023-10-31 17:58] LABS: Platelet Estimate Adequate (Adequate); Schistocytes None Seen
[2023-10-31 17:59] LABS: Anisocytosis 1+; Macrocytosis 1+ (NORMAL)
[2023-10-31] MEDS: POTASSIUM CHLORIDE INJ 40 MEQ in SODIUM CHLORIDE 0.9% IV 500 ML 130 MEQ IVPB (18:32)
[2023-10-31] MEDS: SODIUM CHLORIDE 0.9% IV 1,000 ML 999 ML IV CONT (18:32)
[2023-10-31] MEDS: POTASSIUM CHLORIDE 20 MEQ PACKET (FOR LIQUID) 40 MEQ PO (18:32)
[2023-10-31 18:40] LABS: Alveolar/Arterial O2 Gradient 4.9 mmHg; Base Excess ABG 12.7 mEq/l (+/-2.0); Fractional Inspired Oxygen 21 %; HCO3 ABG 33.4 mEq/l (22.0-26.0); Methemoglobin ABG 0.2 %THb (0-1.5); Oxygen Content ABG 18.4 %vol (16.0-22.0); Oxygen Saturation ABG 98.8 % (95.0-100.0); Oxyhemoglobin 94.8 % THb (90.0-100.0); PCO2 ABG 30.3 mmHg (35.0-45.0); PO2 ABG 108.5 mmHg (80.0-100.0); PO2 FiO2 Ratio Arterial Blood 5.17 %; Total Hemoglobin 13.7 g/dL (12.0-18.0)
[2023-10-31 18:44] LABS: Device ROOM AIR; Site Drawn RIGHT BRACHIAL
[2023-10-31 18:45] LABS: Creatine Kinase 36 U/L (30-135)
[2023-10-31 19:54] LABS: Amphetamine Screen Urine Negative (Negative); Barbiturate Screen Urine Negative (Negative); Benzodiazepines Screen Urine Negative (Negative); Cannabinoid Screen Urine Positive (Negative); Cocaine Screen Urine Negative (Negative); Methadone Screen Urine Negative (Negative); Opiate Screen Urine Negative (Negative); Phencyclidine Screen Urine Negative (Negative)
[2023-10-31 20:02] VITALS: BP 113/90; PULSE 78; RESP 17; O2SAT 100
--- NOTE | 2023-10-31 20:23 | PM.IMHP ---
H&P: HPI History of Present Illness Date/Time: 10/31/23 20:23 Chief Complaint: muscle cramps Narrative: A 33-year-old female with past medical history significant for mitral valve prolapse, patient presents to the emergency room due to complaints of muscle cramps, bilateral lower extremity burning pain from her knees to her toes, poor appetite, poor per orally intake, weight loss. Preliminary workup was significant for potassium 2.4 chloride 88 sodium 128, MCV 109. patient is been admitted for further evaluation management and treatment Review of Systems Review of Systems: bilateral lower extremity burning pain, muscle spasms. Constitutional: Constitutional: Denies chills, Reports fatigue, Denies fever(s), Denies night sweats, Reports poor appetite and Reports weakness Eyes: Eyes: Denies change in vision ENT: Denies facial pain, Denies nasal congestion, Denies nasal discharge and Denies odynophagia Cardiovascular: Cardiovascular: Denies chest pain, Denies radiating jaw, neck or arm pain and Denies palpitations Respiratory: Respiratory: Denies cough, Denies excessive phlegm production, Denies pain on inspiration and Denies dyspnea Gastrointestinal: Gastrointestinal: Denies abdominal pain, Denies dyspepsia, Denies heartburn, Denies diarrhea, Denies nausea and Denies vomiting Genitourinary: Genitourinary: Denies dysuria Musculoskeletal: Musculoskeletal: Reports myalgias, Reports atrophy, Reports muscle cramps and Reports muscle weakness Integumentary/Breasts: Skin/Breast: Denies rash Neurologic: Denies abnormal gait, Denies focal weakness, Denies Sensory deficit (Neuro) and Reports paresthesias Psychiatric: Psychiatric: Reports no additional psychiatric complaints and Reports as per HPI Endocrine: Endocrine: Denies cold intolerance, Denies fatigue, Denies flushing, Denies heat intolerance, Denies polyphagia, Denies polydipsia, Denies polyuria and Denies palpitations Hematologic/Lymphatic: Hematologic/Lymphatic: Reports no additional hematologic/lymphatic complaints and Reports as per HPI Allergic/Immunologic: Allergic/Immunologic: Reports no additional allergic/immunologic complaints and Reports as per HPI COUNT INCLUDES THE [facility] Past Medical History Medical History Mitral valve prolapse Surgical History Surgical History No history of previous surgery Family History Family History Mother Heart attack Grandparent Cancer Social History Social History Social History: Surrogate medical decision maker: Jorge Luiskevyn Centeno, significant other. Code status: Full code. Smoking packs per day: 0.5 Smoking cigarettes per day: 10.0 Years smoked: 16 Smoking pack-years: 8.00 Smoking status: Current every day smoker Tobacco type: cigarettes Alcohol intake: never Alcohol use details: Half of a pint on 3-/ days of the week Substance use: current Substance use type: marijuana Last use: 10/31/23 Do You Feel Safe in your Home?: Yes Lack of Transportation: No Lack of Food: Never True Current Housing: I Have Housing Concerned About Future Housing: No Difficulty Paying Gas/Electric Bills: No Difficulty Paying for Meds: No Currently Unemployed: YES Education: High School Diploma/GED Difficulty w/ Childcare or Family Care: No Living arrangements: with family Occupation/Education: unemployed Gender identity (if verbalized by the patient): Female Sexual Orientation (if Verbalized by the Patient): Straight or Heterosexual Spiritual care concerns: No Agree to blood products: Yes Meds Home Medications and Allergies Home Medications Medication Instructions Recorded Confirmed Type No Home Medications 06/21/23 06/21/23 History Allergies Allergy
[2023-10-31 20:40] LABS: Phosphorus 4.1 mg/dL (2.5-4.5)
[2023-10-31 21:21] LABS: Appearance Urine Turbid (Clear); Bacteria Urine 4+ /hpf; Bilirubin Urine 1+ (Negative); Blood Urine Negative (Negative); Color Urine Dark Yellow (Yellow); Glucose Urine UA Negative (Negative); Ketones Urine Trace mg/dL (Negative); Leukocyte Esterase Ur 1+ LEU/UL (Negative); Nitrate Urine Negative (Negative); Non Pathogenic Casts 0-2; Protein Urine 1+ mg/dL (Negative); Squamous Epithelial Cell Urine None Seen /hpf (Few); pH Urine >=9.0 (5.0-9.0)
[2023-10-31 21:22] LABS: Add Urine Microscopic? YES
[2023-10-31 22:14] VITALS: BMI 13.6
[2023-10-31 22:24] VITALS: BP 109/84; PULSE 76; RESP 16; TEMP 37.5; O2SAT 100; BMI 12.5
--- NOTE | 2023-10-31 22:27 | PC.NURSE ---
This patient, Ester León, was admitted to [facility] Surg Room 319-01. Patient/family oriented to hospital policies and general routines including ID bracelet, bed and alarms, visiting hours, pain management, procedures, bathroom and other care routines, personal items, smoking policy, room service/diet, and visiting hours. Information on how to activate the Rapid Response Team has been discussed. Patient/Family are encouraged to report perceived risks to care and to ask questions if they do not understand what they are told or what they should do.
[2023-10-31 23:07] LABS: Alanine Aminotransferase 31 U/L (6-35); Albumin Level 3.8 g/dL (3.5-5.1); Alkaline Phosphatase 104 U/L (38-126); Anion Gap 4 mmol/L (4-12); Aspartate Amino Transferase 63 U/L (14-36); Bilirubin,Total 1.2 mg/dL (0.2-1.3); Blood Urea Nitrogen 13 mg/dL (7-17); Calcium 8.9 mg/dL (8.4-10.2); Carbon Dioxide 32 mmol/L (22-30); Chloride 100 mmol/L (98-107); Estimated CRCL calculation 78 ml/min; Estimated Glomerular Filt Rate > 60; Glucose 91 mg/dL (65-110); Potassium 3.8 mmol/L (3.4-5.0); Sodium 136 mmol/L (137-145)
[2023-11-01] VITALS (11 sets, daily range): BP systolic 104–117; BP diastolic 72–86; PULSE 73–118; RESP 14–18; TEMP 35.6–36.7; O2SAT 98–100; BMI 12.5
[2023-11-01] MEDS: IMIPRAMINE HCL 25 MG TABLET 75 MG PO (02:04)
[2023-11-01] MEDS: PREGABALIN (*CRX) 75 MG CAPSULE PO (03:25)
--- NOTE | 2023-11-01 08:23 | PM.IMPN ---
Progress Note: A&P Assessment and Plan (1) UTI (urinary tract infection): Code(s): N39.0 - Urinary tract infection, site not specified Status: Acute (2) Severe protein-calorie malnutrition: Code(s): E43 - Unspecified severe protein-calorie malnutrition Status: Acute (3) Hypokalemia: Code(s): E87.6 - Hypokalemia Status: Acute (4) Paresthesia of both lower extremities: Code(s): R20.2 - Paresthesia of skin Status: Acute (5) Pain in both lower extremities: Code(s): M79.604 - Pain in right leg; M79.605 - Pain in left leg Status: Acute (6) Neuropathy: Code(s): G62.9 - Polyneuropathy, unspecified Status: Acute (7) Alkalosis: Code(s): E87.3 - Alkalosis Status: Acute (8) Dehydration: Code(s): E86.0 - Dehydration Status: Acute (9) Cannabis abuse: Code(s): F12.10 - Cannabis abuse, uncomplicated Status: Acute Plan Severe protein and caloric malnutrition Patient reports difficulty swallowing GI consulted High-protein Ensure with each meal Severe electrolyte imbalance Started on folic acid, multivitamin, thiamine Neuropathy BLE worsening No GBS her previous admission Previous admission refused LP has agreed to this admission ordered: GBS -- check glucose, protein, cell count, culture/gram stain, HSV, Lyme was suppose to follow-up with neurology O/P but did not Patient to follow-up with neurology for nerve conduction test Will start patient on Cymbalta currently on no medications PT/OT for evaluation UTI Urine cultures Continue IV hydration. Monitor CBC, CMP watch for sepsis. Monitor vital signs. Rocephin pending cultures. Hypokalemia 2.4 POA Replenished Monitor and replenish as needed Cannabis abuse Drug screen positive Encouraged cessation Code status: Full code per patient DVT prophylaxis: Scd's Stress ulcer prophylaxis: Protonix 40 daily PT/OT notes: PT/OT Pending Disposition: Patient continues admission for worsening parathesis, LP pending and neurology consulted. Had previous work-up 05/2023 and refused LP at that time and did not follow-up for nerve conduction study. Patient agrees to LP at this time, she has severe malnutrition with a 30 pound weight loss in 4 months and difficulty swallowing will consult GI hopefully patient will not need a feeding tube. Time Spent With Patient Time with patient: 15 - 25 minutes Subjective Date/time seen: 11/01/23 08:23 Interval history: Admission: Medical Record A 33-year-old female with past medical history significant for mitral valve prolapse, patient presents to the emergency room due to complaints of muscle cramps, bilateral lower extremity burning pain from her knees to her toes, poor appetite, poor per orally intake, weight loss.? Preliminary workup was significant for potassium 2.4 chloride 88 sodium 128,? MCV 109. patient is been admitted for further evaluation management and treatment. 10/31: Patient had a significant workup back in May and was diagnosed with neuropathy and was suppose to follow-up for nerve conduction testing but has yet to do so. It was also recommended a LP be done during previous admission but refused at that time. Currently on no medication and has worsening malnutrition due to pain with swallowing will consult GI and start Cymbalta. Patient agreed to LP at this time. Review of Systems Review of Systems: All systems reviewed & are unremarkable except as noted in HPI and below Exam Narrative: Physical Exam: GENERAL: Alert and oriented x 3. No acute distress. Cachectic EYES: EOMI. No scleral icterus. PERRLA. HEENT: Moist mucous membranes. LUNGS: Clear to auscultation bilaterally. No accessory muscle use. CARDIOVASCULAR: Regular rate and rhythm. No murmur. No JVD. S1-S2 ABDOMEN: Soft, mild tenderness and non-distended. No palpable
[2023-11-01] MEDS: MIRABEGRON 50 MG ER TABLET PO (08:41)
[2023-11-01] MEDS: PANTOPRAZOLE 40 MG TABLET PO (10:19)
[2023-11-01] MEDS: ONDANSETRON INJ 4 MG/2 ML VIAL IV PUSH (10:19)
[2023-11-01] MEDS: MULTIVITAMINS THERAPEUTIC TAB (*BKC) 1 TABLET PO (10:20)
[2023-11-01] MEDS: THIAMINE HCL 100 MG TABLET PO (10:20)
[2023-11-01] MEDS: FOLIC ACID 1 MG TABLET PO (10:20)
[2023-11-01] MEDS: DULoxetine HCL 30 MG CAPSULE.DR PO (10:21)
--- NOTE | 2023-11-01 13:17 | P.CONGI_ITS ---
I, Tj Dorantes MD, have provided a substantive portion of the care of this patient and discussed the patient with my Nurse Practitioner. I have reviewed any new relevant radiographic and laboratory results including medications. I agree with her documentation as noted below. I personally performed the medical decision making and much of the history and exam for this encounter. briefly, she has experienced weight loss, nausea and lack of appetite for 5-6 years after gave , also neuropathy with work up in progress. Never had EGD, will proceed with one. Assessment and Plan Assessment and plan (1) Dysphagia: Code(s): R13.10 - Dysphagia, unspecified <CATHERINE Hernandez - Last Filed: 11/01/23 16:30> Status: Acute <CATHERINE Hernandez - Last Filed: 11/01/23 16:30> Assessment and Plan: she mostly has nausea and lack of appetite with subsequent weight loss she has been admitted to other hospitals, she has not had EGD- will do one tomorrow to assess if esophagitis or any other to explain her lack of appetite ? dysmotility, autoimmune condition (also neuropathy), etc <Tj Dorantes MD - Last Filed: 11/01/23 15:44> (2) Severe protein-calorie malnutrition: Code(s): E43 - Unspecified severe protein-calorie malnutrition <CATHERINE Hernandez - Last Filed: 11/01/23 16:30> Status: Acute <CATHERINE Hernandez - Last Filed: 11/01/23 16:30> Assessment and Plan: encourage to eat, nutritional support <Tj Dorantes MD - Last Filed: 11/01/23 15:44> (3) Hypokalemia: Code(s): E87.6 - Hypokalemia <CATHERINE Hernandez - Last Filed: 11/01/23 16:30> Status: Acute <CATHERINE Hernandez - Last Filed: 11/01/23 16:30> (4) Alkalosis: Code(s): E87.3 - Alkalosis <CATHERINE Hernandez - Last Filed: 11/01/23 1 6:30> Status: Acute <Mary Lawler CATHERINE Valderrama - Last Filed: 11/01/23 16:30> Assessment and Plan: probably may need nephrology evaluation <Tj Dorantes MD - Last Filed: 11/01/23 15:44> (5) Neuropathy: Code(s): G62.9 - Polyneuropathy, unspecified <MaryCATHERINE Hernadez - Last Filed: 11/01/23 16:30> Status: Acute <Mary Lawler CATHERINE Valderrama - Last Filed: 11/01/23 16:30> Assessment and Plan: likely secondary to nutritional deficiency receiving banana bag <MaryCATHERINE Hernadez - Last Filed: 11/01/23 16:30> likely secondary to nutritional deficiency receiving banana bag she will benefit from neurology consult again, noted in the past plan for possible LP <Tj Dorantes MD - Last Filed: 11/01/23 15:44> (6) UTI (urinary tract infection): Code(s): N39.0 - Urinary tract infection, site not specified <MaryCATHERINE Hernadez - Last Filed: 11/01/23 16:30> Status: Acute <Mary NatachaCATHERINE Scott - Last Filed: 11/01/23 16:30> (7) Paresthesia of both lower extremities: Code(s): R20.2 - Paresthesia of skin <CATHERINE Hernandez - Last Filed: 11/01/23 16:30> Status: Acute <CATHERINE Hernandez - Last Filed: 11/01/23 16:30> Assessment and Plan: b12 and folic normal will check esr, milo, ck given generalized symptoms and weakness ? neurology evaluation <Tj Dorantes MD - Last Filed: 11/01/23 15:44> (8) Cannabis abuse: Code(s): F12.10 - Cannabis abuse, uncomplicated <CATHERINE Hernandez - Last Filed: 11/01/23 16:30> Status: Acute <Mary Valderrama APN-Edy - Last Filed: 11/01/23 16:30> GI Consult Note Consult date/time:
--- NOTE | 2023-11-01 13:17 | WPDGICN ---
Assessment and Plan Assessment and plan (1) Dysphagia: Code(s): R13.10 - Dysphagia, unspecified <CATHERINE Hernandez - Last Filed: 11/01/23 16:30> Status: Acute <Mary Nuris CATHERINE Valderrama - Last Filed: 11/01/23 16:30> Assessment and Plan: she mostly has nausea and lack of appetite with subsequent weight loss she has been admitted to other hospitals, she has not had EGD- will do one tomorrow to assess if esophagitis or any other to explain her lack of appetite ? dysmotility, autoimmune condition (also neuropathy), etc <Tj Dorantes MD - Last Filed: 11/01/23 15:44> (2) Severe protein-calorie malnutrition: Code(s): E43 - Unspecified severe protein-calorie malnutrition <CATHERINE Hernandez - Last Filed: 11/01/23 16:30> Status: Acute <CATHERINE Hernandez - Last Filed: 11/01/23 16:30> Assessment and Plan: encourage to eat, nutritional support <Tj Dorantes MD - Last Filed: 11/01/23 15:44> (3) Hypokalemia: Code(s): E87.6 - Hypokalemia <CATHERINE Hernandez - Last Filed: 11/01/23 16:30> Status: Acute <CATHERINE Hernandez - Last Filed: 11/01/23 16:30> (4) Alkalosis: Code(s): E87.3 - Alkalosis <CATHERINE Hernandez - Last Filed: 11/01/23 16:30> Status: Acute <CATHERINE Hernandez - Last Filed: 11/01/23 16:30> Assessment and Plan: probably may need nephrology evaluation <Tj Dorantes MD - Last Filed: 11/01/23 15:44> (5) Neuropathy: Code(s): G62.9 - Polyneuropathy, unspecified <CATHERINE Hernandez - Last Filed: 11/01/23 16:30> Status: Acute <CATHERINE Hernandez - Last Filed: 11/01/23 16:30> Assessment and Plan: likely secondary to nutritional deficiency receiving banana bag <CATHERINE Hernandez - Last Filed: 11/01/23 16:30> likely secondary to nutritional deficiency receiving banana bag she will benefit from neurology consult again, noted in the past plan for possible LP <Tj Dorantes MD - Last Filed: 11/01/23 15:44> (6) UTI (urinary tract infection): Code(s): N39.0 - Urinary tract infection, site not specified <CATHERINE Hernandez - Last Filed: 11/01/23 16:30> Status: Acute <CATHERINE Hernandez - Last Filed: 11/01/23 16:30> (7) Paresthesia of both lower extremities: Code(s): R20.2 - Paresthesia of skin <JOHANNA HernandezC - Last Filed: 11/01/23 16:30> Status: Acute <CATHERINE Hernandez - Last Filed: 11/01/23 16:30> Assessment and Plan: b12 and folic normal will check esr, milo, ck given generalized symptoms and weakness ? neurology evaluation <Tj Dorantes MD - Last Filed: 11/01/23 15:44> (8) Cannabis abuse: Code(s): F12.10 - Cannabis abuse, uncomplicated <CATHERINE Hernandez - Last Filed: 11/01/23 16:30> Status: Acute <CATHERINE Hernandez - Last Filed: 11/01/23 16:30> GI Consult Note Consult date/time: 11/01/23 13:17 <CATHERINE Hernandez - Last Filed: 11/01/23 16:30> Reason for consult: difficulty swallowing <CATHERINE Hernandez - Last Filed: 11/01/23 16:30> HPI: Ester León is a 33 year old female who we are asked to see for difficulty swallowing. She was presented to [facility] 10/30 for c/o of ?intermittent paresthesias in her lower extremities from her knees down to the tips of her toes bilaterally since mid last year. Labs in the showing hypokalemia at 2.4.? Magnesium is 1.9.? Sodium 132, chloride low at 88, bicarb greater than 40.? Kidney function is stable with creatinine at 0.4. CK WNL. TSH WNL.? Phosphorus WNL.? B12/folate WNL. ABG obtained and patient alkalotic. States most of her symptoms started after the of her son. She was admitted in May for similar symptoms with normal MRI of her brain, cervical, thoracic, lumbar spine. Also c/o of difficulty swallowing
[2023-11-01] MEDS: HYDROcodone/acetaminophen (*CRX) 5-325 MG TABLET 1 TAB PO ×2 (14:35→20:39)
[2023-11-01 14:42] LABS: Partial Thromboplastin Time 25.5 Seconds (22.3-36.8); Prothrombin Time 13.2 Seconds (11.1-14.7)
--- NOTE | 2023-11-01 15:07 | PC.NURSE ---
On 11/01/23, the student, Katey Vargas, provided care and completed [facility] documentation on this patient. I have reviewed the student's documentation and agree with the findings.
[2023-11-01 16:37] LABS: Glucose CSF 59 mg/dL (40-70); Total Protein CSF 20 mg/dL (12-60)
[2023-11-01] MEDS: NICOTINE (*PBKC) 14 MG PATCH 1 PATCH TRANSDERM (17:12)
[2023-11-01 17:49] LABS: CSF source CSF
[2023-11-01 17:50] LABS: Appearance CSF Clear (Clear); Color CSF Colorless (Colorless); Nucleated Cell CSF 0 /uL (0-5); Red Blood Cell CSF 0 (0-2)
[2023-11-02] VITALS (10 sets, daily range): BP systolic 104–123; BP diastolic 48–90; PULSE 70–105; RESP 13–20; TEMP 35.7–36.7; O2SAT 100; BMI 13.1
[2023-11-02] MEDS: HYDROcodone/acetaminophen (*CRX) 5-325 MG TABLET 1 TAB PO ×4 (02:25→21:13)
[2023-11-02] MEDS: SODIUM CHLOR 3% 15 ML NEB (RESPIRATORY THERAPY) 6 ML INHALATION (05:41)
[2023-11-02 06:08] LABS: Hematocrit 34.6 % (37.0-47.0); Hemoglobin 12.2 g/dL (12.0-15.0); Mean Corpuscular HGB Conc 35.3 g/dl (32-36); Mean Corpuscular Hemoglobin 39.7 pg (26-34); Mean Corpuscular Volume 112.7 fl (80-100); Mean Platelet Volume 9.8 fl (7.4-10.4); Platelet Count Result 199 k/mm3 (150-375); Red Blood Count 3.07 M/mm3 (4.2-5.4); Red Cell Distribution Width 13.2 % (11.5-14.5); White Blood Count 4.5 K/mm3 (4.5-10.0)
[2023-11-02 06:24] LABS: Alanine Aminotransferase 24 U/L (6-35); Albumin Level 2.8 g/dL (3.5-5.1); Alkaline Phosphatase 76 U/L (38-126); Anion Gap 2 mmol/L (4-12); Aspartate Amino Transferase 47 U/L (14-36); Bilirubin,Total 0.6 mg/dL (0.2-1.3); Blood Urea Nitrogen 10 mg/dL (7-17); CRP < 0.5 mg/dL (<1.0); Calcium 8.4 mg/dL (8.4-10.2); Carbon Dioxide 30 mmol/L (22-30); Chloride 100 mmol/L (98-107); Creatine Kinase 38 U/L (30-135); Estimated CRCL calculation 78 ml/min; Estimated Glomerular Filt Rate > 60; Glucose 90 mg/dL (65-110); Potassium 2.9 mmol/L (3.4-5.0); Sodium 132 mmol/L (137-145)
[2023-11-02 07:15] LABS: Erythrocyte Sedimentation Rate 15 mm/hr (0-20)
[2023-11-02] MEDS: POTASSIUM CHLORIDE INJ 40 MEQ in SODIUM CHLORIDE 0.9% IV 500 ML 130 MEQ IVPB (09:37)
[2023-11-02] MEDS: NICOTINE (*PBKC) 14 MG PATCH 1 PATCH TRANSDERM (09:47)
[2023-11-02 13:27] LABS: Potassium 3.7 mmol/L (3.4-5.0)
--- NOTE | 2023-11-02 13:35 | WPDANESEPPF ---
Anes - Initial Pre Proc Eval Procedure: Operation Date: 11/02/23 14:00 Proposed Procedures p Esophagogastroduodenoscopy - Tj Dorantes MD Date/Time: 11/02/23 13:35 Surgeon: Tri Mckeon MD Pre Op Diagnosis: Severe Malnutrition,Hypokalemia,BLE Pain Patient Data Age: 33 Gender: F Height: 1.55 m Weight: 31.7 kg Last Vital Signs Temp 96.9 F L 11/02/23 05:41 Pulse 85 11/02/23 05:41 Resp 13 11/02/23 05:41 BP 115/84 11/02/23 05:41 Pulse Ox 100 11/02/23 05:41 O2 Del Method Room Air 11/02/23 09:18 Allergies Allergy/AdvReac Type Severity Reaction Status Date / Time latex Allergy Rash Verified 10/31/23 17:45 Home Medications Medication Instructions Recorded Confirmed Type No Home Medications 06/21/23 06/21/23 History Laboratory Tests 11/01/23 11/01/23 11/01/23 14:26 15:51 15:54 WBC RBC Hgb Hct MCV MCH MCHC RDW Plt Count MPV ESR PT 13.2 Seconds (11.1-14.7) INR 1.0 APTT 25.5 Seconds (22.3-36.8) Sodium Potassium Chloride Carbon Dioxide Anion Gap BUN Creatinine Estim Creat Clear Calc Estimated GFR Glucose Calcium Magnesium Total Bilirubin AST ALT Alkaline Phosphatase Total Creatine Kinase C-Reactive Protein Total Protein Albumin Fluid EBV Source Pending CSF Source Csf Pending CSF Appearance Clear (Clear) CSF Color Colorless (Colorless) CSF RBC 0 (0-2) CSF Tot Nucleated Cells 0 /uL (0-5) CSF Glucose 59 mg/dL (40-70) CSF Lactic Acid Pending CSF Total Protein 20 mg/dL (12-60) CSF Albumin (MS) CSF IgG Oligo Bnd (MS) CSF IgG (MS) Serum IgG (MS) CSF IgG Index (MS) CSF IgG Synth Rate MS CSF Myelin Bsc Prot MS CSF VDRL Pending CSF Lyme IgG Antibody Pending CSF Lyme IgG (Immblot) Pending CSF Lyme IgM Antibody Pending CSF Lyme IgM (Immblot) Pending CSF Cryptococcus Interp Pending CSF EBV DNA (PCR) Pending CSF Herpes I DNA (PCR) Pending CSF Herpes II DNA (PCR) Pending CSF West Nile RNA Pending KATEY Screen Lyme IgG Bands Present Pending Lyme IgM Bands Present Pending Cryptococcus Source Pending Cryptococcus Ag Pending HSV (PCR) Source Pending 11/01/23 11/02/23 11/02/23 15:55 05:47 12:58 WBC 4.5 K/mm3 (4.5-10.0) RBC 3.07 L M/mm3 (4.2-5.4) Hgb 12.2 g/dL (12.0-15.0) Hct 34.6 L % (37.0-47.0) MCV 112.7 H fl (80-100) MCH 39.7 H pg (26-34) MCHC 35.3 g/dl (32-36) RDW 13.2 % (11.5-14.5) Plt Count 199 k/mm3 (150-375) MPV 9.8 fl (7.4-10.4) ESR 15 mm/hr (0-20) PT INR APTT Sodium 132 L mmol/L (137-145) Potassium 2.9 L mmol/L 3.7 mmol/L (3.4-5.0) (3.4-5.0) Chloride 100 mmol/L (98-107) Carbon Dioxide 30 mmol/L (22-30) Anion Gap 2 L mmol/L (4-12) BUN 10 mg/dL (7-17) Creatinine 0.40 L mg/dL (0.7-1.0) Estim Creat Clear Calc 78 ml/min Estimated GFR > 60 (59 - ) Glucose 90 mg/dL (65-110) Calcium 8.4 mg/dL (8.4-10.2) Magnesium 2.0 mg/dL (1.6-2.3) Total Bilirubin 0.6 mg/dL
[2023-11-02] MEDS: LACTATED RINGERS 1,000 ML 150 ML IV CONT (13:40)
--- NOTE | 2023-11-02 14:37 | P.PNIM_ITS ---
Progress Note: A&P Assessment and Plan (1) UTI (urinary tract infection): Code(s): N39.0 - Urinary tract infection, site not specified Status: Acute Assessment and Plan: UA suspicious for UTI * Rocephin started on 10/31 * Urine culture positive for Klebsiella pansensitive. * Patient transition to p.o. antibiotics of Augmentin on 11/01 (2) Severe protein-calorie malnutrition: Code(s): E43 - Unspecified severe protein-calorie malnutrition Status: Acute Assessment and Plan: * Patient reports difficulty swallowing * GI consulted and appreciate recommendations. * High-protein Ensure with each meal * Severe electrolyte imbalance * Started on folic acid, multivitamin, thiamine * Plan for EGD today. * Patient may need feeding tube if she cannot sustain calorie intake. (3) Hypokalemia: Code(s): E87.6 - Hypokalemia Status: Acute Assessment and Plan: Replace as necessary. Likely hypokalemic due to malnutrition. (4) Paresthesia of both lower extremities: Code(s): R20.2 - Paresthesia of skin Status: Acute Assessment and Plan: * Neurology consulted. * BLE worsening * No GBS her previous admission * Previous admission refused LP has agreed to this admission * ordered: full LP work up -- culture/gram stain, HSV, Lyme * LP with clear colorless CSF fluid, 0 RBCs, 0 total nucleated cells, 59 glucose and 20 protein * Was suppose to follow-up with neurology O/P but did not * Patient to follow-up with neurology for nerve conduction test * Will start patient on Cymbalta currently on no medications * PT/OT for evaluation (5) Pain in both lower extremities: Code(s): M79.604 - Pain in right leg; M79.605 - Pain in left leg Status: Acute Assessment and Plan: See above. Analgesics as needed. (6) Neuropathy: Code(s): G62.9 - Polyneuropathy, unspecified Status: Acute Assessment and Plan: see above. (7) Dehydration: Code(s): E86.0 - Dehydration Status: Resolved Assessment and Plan: Dehydration resolved with fluids. IV fluids decreased to 100 cc/hr (8) Cannabis abuse: Code(s): F12.10 - Cannabis abuse, uncomplicated Status: Acute Assessment and Plan: Drug screen positive * Encouraged cessation Plan Severe protein and caloric malnutrition * Neuropathy * UTI * Hypokalemia * 2.4 POA * Replenished * Monitor and replenish as needed Cannabis abuse * Code status: Full code per patient DVT prophylaxis: Scd's Stress ulcer prophylaxis: Protonix 40 daily PT/OT notes: PT/OT Pending Disposition: Patient continues admission for worsening parathesis, LP pending and neurology consulted. Had previous work-up 05/2023 and refused LP at that time and did not follow-up for nerve conduction study. Patient agrees to LP at this time, she has severe malnutrition with a 30 pound weight loss in 4 months and difficulty swallowing will consult GI hopefully patient will not need a feeding tube. Subjective Date/time seen: 11/02/23 14:37 Interval history: patient still having shooting pain in her bilateral lower extremities. She also has this pain in her hands although it is less than her extremities. She uses a walker to ambulate due to her progressive weakness and lower extremity p
--- NOTE | 2023-11-02 14:37 | PM.IMPN ---
Progress Note: A&P Assessment and Plan (1) UTI (urinary tract infection): Code(s): N39.0 - Urinary tract infection, site not specified Status: Acute Assessment and Plan: UA suspicious for UTI Rocephin started on 10/31 Urine culture positive for Klebsiella pansensitive. Patient transition to p.o. antibiotics of Augmentin on 11/01 (2) Severe protein-calorie malnutrition: Code(s): E43 - Unspecified severe protein-calorie malnutrition Status: Acute Assessment and Plan: Patient reports difficulty swallowing GI consulted and appreciate recommendations. High-protein Ensure with each meal Severe electrolyte imbalance Started on folic acid, multivitamin, thiamine Plan for EGD today. Patient may need feeding tube if she cannot sustain calorie intake. (3) Hypokalemia: Code(s): E87.6 - Hypokalemia Status: Acute Assessment and Plan: Replace as necessary. Likely hypokalemic due to malnutrition. (4) Paresthesia of both lower extremities: Code(s): R20.2 - Paresthesia of skin Status: Acute Assessment and Plan: Neurology consulted. BLE worsening No GBS her previous admission Previous admission refused LP has agreed to this admission ordered: full LP work up -- culture/gram stain, HSV, Lyme LP with clear colorless CSF fluid, 0 RBCs, 0 total nucleated cells, 59 glucose and 20 protein Was suppose to follow-up with neurology O/P but did not Patient to follow-up with neurology for nerve conduction test Will start patient on Cymbalta currently on no medications PT/OT for evaluation (5) Pain in both lower extremities: Code(s): M79.604 - Pain in right leg; M79.605 - Pain in left leg Status: Acute Assessment and Plan: See above. Analgesics as needed. (6) Neuropathy: Code(s): G62.9 - Polyneuropathy, unspecified Status: Acute Assessment and Plan: see above. (7) Dehydration: Code(s): E86.0 - Dehydration Status: Resolved Assessment and Plan: Dehydration resolved with fluids. IV fluids decreased to 100 cc/hr (8) Cannabis abuse: Code(s): F12.10 - Cannabis abuse, uncomplicated Status: Acute Assessment and Plan: Drug screen positive Encouraged cessation Plan Severe protein and caloric malnutrition Neuropathy UTI Hypokalemia 2.4 POA Replenished Monitor and replenish as needed Cannabis abuse Code status: Full code per patient DVT prophylaxis: Scd's Stress ulcer prophylaxis: Protonix 40 daily PT/OT notes: PT/OT Pending Disposition: Patient continues admission for worsening parathesis, LP pending and neurology consulted. Had previous work-up 05/2023 and refused LP at that time and did not follow-up for nerve conduction study. Patient agrees to LP at this time, she has severe malnutrition with a 30 pound weight loss in 4 months and difficulty swallowing will consult GI hopefully patient will not need a feeding tube. Subjective Date/time seen: 11/02/23 14:37 Interval history: patient still having shooting pain in her bilateral lower extremities. She also has this pain in her hands although it is less than her extremities. She uses a walker to ambulate due to her progressive weakness and lower extremity pain. She states that her lack of appetite and paresthesias have gone on between 1 year and 6 years. She states that she feels like this began in 2017 when she had a child. Somewhat of a poor historian. Plan for EGD to evaluate lack of appetite today. Exam Narrative: GENERAL: Comfortable, no acute distress , extremely thin HENMT: moist mucous membranes, poor dentition, lanugo EYES: EOM intact b/l NECK: no lymphadenopathy RESPIRATORY: clear to auscultation, no increased respiratory effort CARDIO: Regular rate and rhythm GI:concave abdomen, nontender, bowel sounds p
[2023-11-02] MEDS: AMOXICILLIN/CLAVULANATE K 875-125 MG TAB 1 TABLET PO (20:27)
[2023-11-03] MEDS: HYDROcodone/acetaminophen (*CRX) 5-325 MG TABLET 1 TAB PO ×4 (03:54→21:59)
--- NOTE | 2023-11-03 04:57 | PCRCNOTE ---
Pt said that she tried the morning of 11/02/23 and could not produce any sputum and said that she does not want to try again.
[2023-11-03 05:37] VITALS: BP 100/73; PULSE 80; RESP 16; TEMP 36.6; O2SAT 100
[2023-11-03 07:20] LABS: Hematocrit 36.4 % (37.0-47.0); Hemoglobin 12.4 g/dL (12.0-15.0); Mean Corpuscular HGB Conc 34.1 g/dl (32-36); Mean Corpuscular Hemoglobin 39.2 pg (26-34); Mean Corpuscular Volume 115.2 fl (80-100); Mean Platelet Volume 9.8 fl (7.4-10.4); Platelet Count Result 207 k/mm3 (150-375); Red Blood Count 3.16 M/mm3 (4.2-5.4); Red Cell Distribution Width 13.4 % (11.5-14.5)
[2023-11-03 07:46] LABS: Alanine Aminotransferase 24 U/L (6-35); Albumin Level 2.8 g/dL (3.5-5.1); Alkaline Phosphatase 74 U/L (38-126); Anion Gap 4 mmol/L (4-12); Aspartate Amino Transferase 37 U/L (14-36); Bilirubin,Total 0.7 mg/dL (0.2-1.3); Blood Urea Nitrogen 6 mg/dL (7-17); Calcium 8.7 mg/dL (8.4-10.2); Carbon Dioxide 30 mmol/L (22-30); Chloride 100 mmol/L (98-107); Estimated CRCL calculation 82 ml/min; Estimated Glomerular Filt Rate > 60; Glucose 77 mg/dL (65-110); Magnesium 1.9 mg/dL (1.6-2.3); Potassium 3.8 mmol/L (3.4-5.0); Sodium 134 mmol/L (137-145)
--- NOTE | 2023-11-03 07:56 | WPDANESPN ---
Anes - Prog Note Post-Op Date/Time: 11/03/23 07:56 Cardiovascular status: normal Respiratory status: normal Airway patency: baseline Mental status: baseline Post-Op hydration status: normal Vital Signs: Last Vital Signs Temp 36.6 C 11/03/23 05:37 Pulse 80 11/03/23 05:37 Resp 16 11/03/23 05:37 BP 100/73 11/03/23 05:37 Pulse Ox 100 11/03/23 05:37 O2 Del Method Room Air 11/02/23 15:08 Pain Score (VAS): 08/03 I/O: Intake & Output 11/02/23 11/02/23 11/03/23 15:59 23:59 07:59 Intake Total 685 240 200 Balance 685 240 200 Laboratory Tests 11/03/23 06:55 11/03/23 06:55 11/02/23 11/03/23 12:58 06:55 WBC 4.0 L RBC 3.16 L Hgb 12.4 Hct 36.4 L MCV 115.2 H MCH 39.2 H MCHC 34.1 RDW 13.4 Plt Count 207 MPV 9.8 Sodium 134 L Potassium 3.7 3.8 Chloride 100 Carbon Dioxide 30 Anion Gap 4 BUN 6 L Creatinine 0.40 L Estim Creat Clear Calc 82 Estimated GFR > 60 Glucose 77 Calcium 8.7 Magnesium 1.9 Total Bilirubin 0.7 AST 37 H ALT 24 Alkaline Phosphatase 74 Total Protein 5.0 L Albumin 2.8 L Microbiology 11/01/23 15:56 Cerebral Spinal Fluid Gram Stain - Final 11/01/23 15:56 Cerebral Spinal Fluid CSF Culture - Preliminary 10/31/23 19:28 Urine Clean Catch Urine Culture - Final Klebsiella pneumoniae Post-procedural complaints: none Patient Feedback: Patient satisfied with anesthetic care.
[2023-11-03] MEDS: MIRABEGRON 50 MG ER TABLET PO (09:21)
[2023-11-03] MEDS: MULTIVITAMINS THERAPEUTIC TAB (*BKC) 1 TABLET PO (09:21)
[2023-11-03] MEDS: DULoxetine HCL 30 MG CAPSULE.DR PO (09:21)
[2023-11-03] MEDS: PANTOPRAZOLE 40 MG TABLET PO (09:21)
[2023-11-03] MEDS: FOLIC ACID 1 MG TABLET PO (09:21)
[2023-11-03] MEDS: THIAMINE HCL 100 MG TABLET PO (09:21)
[2023-11-03] MEDS: AMOXICILLIN/CLAVULANATE K 875-125 MG TAB 1 TABLET PO ×2 (09:21→20:44)
[2023-11-03] MEDS: NICOTINE (*PBKC) 14 MG PATCH 1 PATCH TRANSDERM (09:22)
--- NOTE | 2023-11-03 10:36 | WPDNEURCNPN ---
Assessment and Plan Assessment and plan (1) Paresthesia of both lower extremities: Code(s): R20.2 - Paresthesia of skin Status: Acute (2) Pain in both lower extremities: Code(s): M79.604 - Pain in right leg; M79.605 - Pain in left leg Status: Acute (3) Severe protein-calorie malnutrition: Code(s): E43 - Unspecified severe protein-calorie malnutrition Status: Acute Plan Ester León is a 33 year old female with a history of > one year history of paraesthesias in the lower extremities and gait instability presenting for worsening symptoms. Exam is concerning for pregressive neuropathy of unclear etiology - considering CIDP vs other forms of peripheral neuropathy such as paraneoplastic, autoimmune, etc. Patient initially presented with these symptoms in May 2023. At that time she was reporting a one year history of paraesthesias in her thighs, worsening numbness/difficulty ambulating for the prior few weeks. She is now presented again due to worsening paraesthesias in the lower extremities, which has progessed up to her hands. It's hard to tell if she has weakness secondary to the neuropathy or more related to deconditioning/weight loss. I would be willing to trial a course of IVIG, but I am concerned about the risks associated with it, especially given her current condition. She will absolutely need an EMG/NCS and follow-up as outpatient and then decision regarding IVIG can be made from then. - Repeat MRI brain and spine with and without contrast - Will check neuropathy labs including paraneoplastic panel and ganglioside antibodies - EMG/NCS scheduled for 11/13 at 10AM - Consider oncology consult given significant weight loss Consult date: 11/03/23 HPI: Ester León is a 33 year old female with a history of > one year history of paraesthesias in the lower extremities and gait instability presenting for worsening symptoms. Patient initially presented with these symptoms in May 2023. At that time she was reporting a one year history of paraesthesias in her thighs, worsening numbness/difficulty ambulating for the prior few weeks. She had a thirty lb weight loss and was also noted to be deficient in folate. At that time considering more chronic neuropathy, but with the subacute worsening, also was considering AIDP/GBS. She had an MRI brain, cervical, thoracic, and lumbar spine which were all unrevealing. Patient ultimately declined LP and was discharged with follow-up with neurology, which she did not do. She presents now with worsening paraesthesias in the lower extremities, which has now also extended to her hands. Her weight is 31kg. She is being worked up for the cause of her weight loss. LP has been done which shows normal cell count and protein. She is to the point that she is requiring a walker. She drinks about 1/5th of a bottle of hard liqueur a week (But not every week). Review of Systems Review of Systems: All systems reviewed & are unremarkable except as noted in HPI and below Constitutional: Constitutional: Reports fatigue and Reports weakness Comments: weight loss Genitourinary: Genitourinary: Denies urinary incontinence Musculoskeletal: Musculoskeletal: Reports myalgias Neurologic: Reports as per HPI [facility] Past Medical History Medical History Anorexia Dysphagia Mitral valve prolapse Nausea Surgical History Surgical History No history of previous surgery Family History Family History Mother Heart attack Grandparent Cancer Social History Social History Social History: Surrogate medical decision maker: Jorge Luis Centeno, significant other. Code status: Full code. Smoking packs per day: 0.5 Smoking cigarettes per day: 10.0 Years smoked: 16 Smoking pack
[2023-11-03] MEDS: ONDANSETRON INJ 4 MG/2 ML VIAL IV PUSH (13:18)
[2023-11-03] MEDS: ACETAMINOPHEN 325 MG TABLET 650 MG PO (13:18)
[2023-11-03 13:53] LABS: Epstein Barr Virus DNA PCR Not Detected (Not Detected); Source Epstein Barr Virus CSF
[2023-11-03 14:00] VITALS: BP 109/85; PULSE 100; RESP 16; TEMP 36.2; O2SAT 100
--- NOTE | 2023-11-03 14:02 | WPDGIPROGNO ---
Progress Note: A&P Assessment and Plan (1) Severe protein-calorie malnutrition: Code(s): E43 - Unspecified severe protein-calorie malnutrition Status: Acute Assessment and Plan: egd unremarkable, nothing to explain symptom she has neuropathy with cachexia- work up in progress, neurology on board and she had LP, will need more work up at tertiary center (2) Nausea: Code(s): R11.0 - Nausea Status: Acute Assessment and Plan: probably we can order gastric emptying study antiemetics prn (3) Anorexia: Code(s): R63.0 - Anorexia Status: Acute Assessment and Plan: encourage to eat PEG placement as last resource, ideally need to find out cause of ongoing symptoms (4) Alkalosis: Code(s): E87.3 - Alkalosis Status: Acute (5) Neuropathy: Code(s): G62.9 - Polyneuropathy, unspecified Status: Acute Assessment and Plan: by neurology Subjective Date/time seen: 11/03/23 14:02 Interval history: egd with biopsies yesterday, unremarkable c/o nausea, also lack of appetite Review of Systems Review of Systems: All systems reviewed & are unremarkable except as noted in HPI and below Exam Const: General: no acute distress Other: cachectic HENMT: Face/Nose/Sinus: Normal nares present Eyes: Sclera: sclerae normal Neck: Neck: supple Chest: Chest palpation & inspection: normal inspection of the chest Resp: Effort & Inspection: normal respiratory effort Auscultation: clear to auscultation bilaterally Cardio: Rate: regular rate Rhythm: regular rhythm GI: GI Palp: No abdominal tenderness and Yes Soft to palpation Auscultation: normal bowel sounds and no bruits : General: Yes bladder normal to palpation Skin: General skin exam: normal color Neuro: Speech: normal speech Other: decrease muscle mass Extrem: General: normal to inspection and no edema Psych: Affect: Anxious affect present Objective Data Vital Signs Vital Signs: Vital Signs - 24 hr 11/02/23 14:48 11/02/23 14:58 11/02/23 15:08 Temperature Pulse Rate 90 80 79 Respiratory Rate 20 20 18 Blood Pressure 104/76 106/48 L 114/81 Pulse Oximetry 100 100 100 Oxygen Delivery Room Air Room Air Room Air 11/02/23 15:30 11/02/23 21:36 11/03/23 05:37 Temperature 97.1 F L 98.1 F 97.9 F Pulse Rate 74 105 H 80 Respiratory Rate 16 16 16 Blood Pressure 112/80 118/90 100/73 Pulse Oximetry 100 100 100 Oxygen Delivery 11/03/23 08:00 Temperature Pulse Rate Respiratory Rate Blood Pressure Pulse Oximetry Oxygen Delivery Room Air Intake/Output Intake/Output: Intake & Output 10/31/23 11/01/23 11/02/23 11/03/23 23:59 23:59 23:59 23:59 Intake Total 1560 2478.2 318 Balance 1560 2478.2 318 Meds/Results Medications: Active Medications Generic Name Dose Route Start Last Admin Trade Name Freq PRN Reason Stop Dose Admin Acetaminophen 650 mg 10/31/23 20:39 11/03/23 13:18 Acetaminophen 325 Mg Tablet PO 650 mg Q4H PRN Administration Mild Pain (1-3) or Fever Hydrocodone Bitart/Acetaminophen 1 tab 11/01/23 14:21 11/03/23 09:32 Hydrocodone/Acetaminophen (*Crx) 5-325 Mg Tablet PO 1 tab Q6H PRN Administration Pain Rated 4-6 Amoxicillin/Clavulanate Potassium 1 tablet 11/02/23 21:00 11/03/23 09:21 Amoxicillin/Clavulanate K 875-125 Mg Tab PO 1 tablet Q12HR JU Administration Duloxetine HCl 30 mg 11/01/23 09:00 11/03/23 09:21 Duloxetine Hcl 30 Mg Capsule. PO 30 mg QAM JU Administration Folic Acid 1 mg 11/01/23 09:00 11/03/23 09:21 Folic Acid 1 Mg Tablet PO 1 mg DAILY JU Administration Mirabegron 50 mg 11/01/23 09:00 11/03/23 09:21 Mirabegron 50 Mg Er Tablet PO 50 mg DAILY JU Administration Multivitamins Therapeutic 1 tablet 11/01/23 09:00 11/03/23 09:21 Multivitamins Therapeutic Tab (*Bkc) PO 1 tablet QAM JU Administration Nicotine 1 patch
[2023-11-03 14:08] LABS: Herpes Simplex Type 1 DNA PCR Not Detected (Not Detected); Herpes Simplex Type 2 DNA PCR Not Detected (Not Detected)
[2023-11-03 14:24] LABS: CMV DNA Quant PCR IU/mL Not Detected; Cytomegalovirus DNA Quant PCR Not Detected log IU/mL; Cytomegalovirus DNA Source Serum
--- NOTE | 2023-11-03 16:05 | P.PNIM_ITS ---
Progress Note: A&P Assessment and Plan (1) UTI (urinary tract infection): Code(s): N39.0 - Urinary tract infection, site not specified Status: Acute Assessment and Plan: UA suspicious for UTI * Rocephin started on 10/31 * Urine culture positive for Klebsiella pansensitive. * Patient transition to p.o. antibiotics of Augmentin on 11/01 (2) Severe protein-calorie malnutrition: Code(s): E43 - Unspecified severe protein-calorie malnutrition Status: Acute Assessment and Plan: * Patient reports difficulty swallowing * GI consulted and appreciate recommendations. * High-protein Ensure with each meal * Severe electrolyte imbalance on admission --> resolved. * Started on folic acid, multivitamin, thiamine * EGD did not show any abnormalities. * Patient may need feeding tube if she cannot sustain calorie intake. * I spoke in detail with patient about her weight and she is agreeable to have of feeding tube placed if necessary. (3) Anorexia: Code(s): R63.0 - Anorexia Status: Acute Assessment and Plan: Start on Megestrol, Ensure ice cream and Cymbalta * Concern for psychiatric component * Rule out all structural causes of patients weight loss * EGD with no acute abnormalities * Gastric emptying scan tomorrow. (4) Hypokalemia: Code(s): E87.6 - Hypokalemia Status: Acute Assessment and Plan: Replace as necessary. Likely hypokalemic due to malnutrition. (5) Paresthesia of both lower extremities: Code(s): R20.2 - Paresthesia of skin Status: Acute Assessment and Plan: * Neurology consulted. * BLE worsening * No GBS her previous admission * Previous admission refused LP has agreed to this admission * ordered: full LP work up -- culture/gram stain, HSV, Lyme * LP with clear colorless CSF fluid, 0 RBCs, 0 total nucleated cells, 59 glucose and 20 protein * Was suppose to follow-up with neurology O/P but did not * Patient to follow-up with neurology for nerve conduction test * Will start patient on Cymbalta currently on no medications * PT/OT for evaluation (6) Pain in both lower extremities: Code(s): M79.604 - Pain in right leg; M79.605 - Pain in left leg Status: Acute Assessment and Plan: See above. Analgesics as needed. (7) Neuropathy: Code(s): G62.9 - Polyneuropathy, unspecified Status: Acute Assessment and Plan: see above. (8) Dehydration: Code(s): E86.0 - Dehydration Status: Resolved Assessment and Plan: Dehydration resolved with fluids. IV fluids decreased to 100 cc/hr (9) Cannabis abuse: Code(s): F12.10 - Cannabis abuse, uncomplicated Status: Acute Assessment and Plan: Drug screen positive * Encouraged cessation Plan Subjective Date/time seen: 11/03/23 16:05 Interval history: Discussed in detail about how outlook of patient's overall health. Went through eating disorder examination the questionnaire and patient did not raise any concern for an eating disorder with aversion to food or for body image. there is a chance that there is other psychiatric causes of her weight loss. Discussed the need for possible feeding tube and she was agreeable to this. Plan for gastric emptying scan tomorrow. If this is normal she will likely need NG placement over the weekend with PEG placement on Tuesday. Discussed this with both Gastroenterology, dietary an
--- NOTE | 2023-11-03 16:05 | PM.IMPN ---
Progress Note: A&P Assessment and Plan (1) UTI (urinary tract infection): Code(s): N39.0 - Urinary tract infection, site not specified Status: Acute Assessment and Plan: UA suspicious for UTI Rocephin started on 10/31 Urine culture positive for Klebsiella pansensitive. Patient transition to p.o. antibiotics of Augmentin on 11/01 (2) Severe protein-calorie malnutrition: Code(s): E43 - Unspecified severe protein-calorie malnutrition Status: Acute Assessment and Plan: Patient reports difficulty swallowing GI consulted and appreciate recommendations. High-protein Ensure with each meal Severe electrolyte imbalance on admission --> resolved. Started on folic acid, multivitamin, thiamine EGD did not show any abnormalities. Patient may need feeding tube if she cannot sustain calorie intake. I spoke in detail with patient about her weight and she is agreeable to have of feeding tube placed if necessary. (3) Anorexia: Code(s): R63.0 - Anorexia Status: Acute Assessment and Plan: Start on Megestrol, Ensure ice cream and Cymbalta Concern for psychiatric component Rule out all structural causes of patients weight loss EGD with no acute abnormalities Gastric emptying scan tomorrow. (4) Hypokalemia: Code(s): E87.6 - Hypokalemia Status: Acute Assessment and Plan: Replace as necessary. Likely hypokalemic due to malnutrition. (5) Paresthesia of both lower extremities: Code(s): R20.2 - Paresthesia of skin Status: Acute Assessment and Plan: Neurology consulted. BLE worsening No GBS her previous admission Previous admission refused LP has agreed to this admission ordered: full LP work up -- culture/gram stain, HSV, Lyme LP with clear colorless CSF fluid, 0 RBCs, 0 total nucleated cells, 59 glucose and 20 protein Was suppose to follow-up with neurology O/P but did not Patient to follow-up with neurology for nerve conduction test Will start patient on Cymbalta currently on no medications PT/OT for evaluation (6) Pain in both lower extremities: Code(s): M79.604 - Pain in right leg; M79.605 - Pain in left leg Status: Acute Assessment and Plan: See above. Analgesics as needed. (7) Neuropathy: Code(s): G62.9 - Polyneuropathy, unspecified Status: Acute Assessment and Plan: see above. (8) Dehydration: Code(s): E86.0 - Dehydration Status: Resolved Assessment and Plan: Dehydration resolved with fluids. IV fluids decreased to 100 cc/hr (9) Cannabis abuse: Code(s): F12.10 - Cannabis abuse, uncomplicated Status: Acute Assessment and Plan: Drug screen positive Encouraged cessation Plan Subjective Date/time seen: 11/03/23 16:05 Interval history: Discussed in detail about how outlook of patient's overall health. Went through eating disorder examination the questionnaire and patient did not raise any concern for an eating disorder with aversion to food or for body image. there is a chance that there is other psychiatric causes of her weight loss. Discussed the need for possible feeding tube and she was agreeable to this. Plan for gastric emptying scan tomorrow. If this is normal she will likely need NG placement over the weekend with PEG placement on Tuesday. Discussed this with both Gastroenterology, dietary and Case Management. Exam Narrative: GENERAL: Comfortable, no acute distress , extremely thin HENMT: moist mucous membranes, poor dentition, lanugo EYES: EOM intact b/l NECK: no lymphadenopathy RESPIRATORY: clear to auscultation, no increased respiratory effort CARDIO: Regular rate and rhythm GI:concave abdomen, nontender, bowel sounds present SKIN/EXTREMITIES: no rashes, no edema, no redness or tenderness NEURO: Answers questions appropriately, A&O x4, bilateral lower extremity str
[2023-11-03 18:55] LABS: Cryptococcus Antigen Not Detected (Not Detected); Cryptococcus Specimen Source Serum
[2023-11-03 20:31] LABS: JC Polyoma Virus Source Not Detected (Not Detected)
[2023-11-03 22:00] VITALS: BP 108/83; PULSE 93; RESP 14; TEMP 36.2; O2SAT 100
[2023-11-04] MEDS: HYDROcodone/acetaminophen (*CRX) 5-325 MG TABLET 1 TAB PO ×3 (04:26→20:26)
[2023-11-04 05:56] VITALS: BP 108/73; PULSE 81; RESP 13; TEMP 36.1; O2SAT 100
--- NOTE | 2023-11-04 06:44 | PCRCNOTE ---
patient refused to submit a sputum sample
[2023-11-04 08:00] VITALS: O2SAT 96
[2023-11-04 09:04] LABS: Glucose Point of Care 76 mg/dl (65-105)
[2023-11-04] MEDS: NICOTINE (*PBKC) 14 MG PATCH 1 PATCH TRANSDERM (09:15)
[2023-11-04 09:20] LABS: Hematocrit 36.7 % (37.0-47.0); Hemoglobin 12.7 g/dL (12.0-15.0); Mean Corpuscular HGB Conc 34.6 g/dl (32-36); Mean Corpuscular Hemoglobin 39.4 pg (26-34); Mean Platelet Volume 9.9 fl (7.4-10.4); Platelet Count Result 223 k/mm3 (150-375); Red Blood Count 3.22 M/mm3 (4.2-5.4); Red Cell Distribution Width 13.4 % (11.5-14.5); White Blood Count 3.8 K/mm3 (4.5-10.0)
[2023-11-04 09:29] LABS: Alanine Aminotransferase 22 U/L (6-35); Albumin Level 2.8 g/dL (3.5-5.1); Alkaline Phosphatase 76 U/L (38-126); Anion Gap 7 mmol/L (4-12); Aspartate Amino Transferase 34 U/L (14-36); Bilirubin,Total 0.6 mg/dL (0.2-1.3); Blood Urea Nitrogen 7 mg/dL (7-17); Calcium 8.9 mg/dL (8.4-10.2); Carbon Dioxide 27 mmol/L (22-30); Chloride 99 mmol/L (98-107); Estimated CRCL calculation 82 ml/min; Estimated Glomerular Filt Rate > 60; Glucose 73 mg/dL (65-110); Magnesium 1.7 mg/dL (1.6-2.3); Potassium 3.4 mmol/L (3.4-5.0); Sodium 133 mmol/L (137-145)
--- NOTE | 2023-11-04 09:48 | P.PNIM_ITS ---
Progress Note: A&P Assessment and Plan (1) UTI (urinary tract infection): Code(s): N39.0 - Urinary tract infection, site not specified Status: Acute Assessment and Plan: UA suspicious for UTI * Rocephin started on 10/31 * Urine culture positive for Klebsiella pansensitive. * Patient transition to p.o. antibiotics of Augmentin on 11/01 * 11/03 Antibiotics transition to Unasyn due to patient unable to swallow pills. (2) Anorexia: Code(s): R63.0 - Anorexia Status: Acute Assessment and Plan: Start on Megestrol, Ensure ice cream, vitamin supplementation and Cymbalta * Concern for psychiatric component * Rule out all structural causes of patients weight loss * EGD with no acute abnormalities * Gastric emptying scan today. * Psychiatric consult. * Labs: b12, folate, Vit D, TSH, RPR, HIV --> (as well as comprehensive neurologic workup) (3) Severe protein-calorie malnutrition: Code(s): E43 - Unspecified severe protein-calorie malnutrition Status: Acute Assessment and Plan: * Patient reports difficulty swallowing * GI consulted and appreciate recommendations. * High-protein Ensure with each meal * Severe electrolyte imbalance on admission --> resolved. * Started on folic acid, multivitamin, thiamine * EGD did not show any abnormalities. * Patient refused small bowel follow-through due to unable to eat the aches * Spoke with GI and plan to place feeding tube on Tuesday. Dobbhoff to be placed today. (4) Hypokalemia: Code(s): E87.6 - Hypokalemia Status: Acute Assessment and Plan: Replace as necessary. Likely hypokalemic due to malnutrition. (5) Paresthesia of both lower extremities: Code(s): R20.2 - Paresthesia of skin Status: Acute Assessment and Plan: * Neurology consulted. * BLE worsening * No GBS her previous admission * Previous admission refused LP has agreed to this admission * ordered: full LP work up -- culture/gram stain, HSV, Lyme * LP with clear colorless CSF fluid, 0 RBCs, 0 total nucleated cells, 59 glucose and 20 protein * Was suppose to follow-up with neurology O/P but did not * Patient to follow-up with neurology for nerve conduction test * Will start patient on Cymbalta currently on no medications * PT/OT for evaluation (6) Pain in both lower extremities: Code(s): M79.604 - Pain in right leg; M79.605 - Pain in left leg Status: Acute Assessment and Plan: See above. Analgesics as needed. (7) Neuropathy: Code(s): G62.9 - Polyneuropathy, unspecified Status: Acute Assessment and Plan: see above. (8) Dehydration: Code(s): E86.0 - Dehydration Status: Resolved Assessment and Plan: Resolved (9) Cannabis abuse: Code(s): F12.10 - Cannabis abuse, uncomplicated Status: Acute Assessment and Plan: Drug screen positive * Encouraged cessation Plan Subjective Date/time seen: 11/04/23 09:48 Interval history: Patient refused small-bowel follow-through due to nausea associated with eating the eggs. Due to not being able to do this feeding tube was then discussed again with the patient. She has refused all medications such as her appetite stimulant, antidepressant and daily vitamins. nutritional status was discussed with the patient and the urgent need for supplementation. She is agreeable for feeding tube to be
--- NOTE | 2023-11-04 09:48 | PM.IMPN ---
Progress Note: A&P Assessment and Plan (1) UTI (urinary tract infection): Code(s): N39.0 - Urinary tract infection, site not specified Status: Acute Assessment and Plan: UA suspicious for UTI Rocephin started on 10/31 Urine culture positive for Klebsiella pansensitive. Patient transition to p.o. antibiotics of Augmentin on 11/01 11/03 Antibiotics transition to Unasyn due to patient unable to swallow pills. (2) Anorexia: Code(s): R63.0 - Anorexia Status: Acute Assessment and Plan: Start on Megestrol, Ensure ice cream, vitamin supplementation and Cymbalta Concern for psychiatric component Rule out all structural causes of patients weight loss EGD with no acute abnormalities Gastric emptying scan today. Psychiatric consult. Labs: b12, folate, Vit D, TSH, RPR, HIV --> (as well as comprehensive neurologic workup) (3) Severe protein-calorie malnutrition: Code(s): E43 - Unspecified severe protein-calorie malnutrition Status: Acute Assessment and Plan: Patient reports difficulty swallowing GI consulted and appreciate recommendations. High-protein Ensure with each meal Severe electrolyte imbalance on admission --> resolved. Started on folic acid, multivitamin, thiamine EGD did not show any abnormalities. Patient refused small bowel follow-through due to unable to eat the aches Spoke with GI and plan to place feeding tube on Tuesday. Dobbhoff to be placed today. (4) Hypokalemia: Code(s): E87.6 - Hypokalemia Status: Acute Assessment and Plan: Replace as necessary. Likely hypokalemic due to malnutrition. (5) Paresthesia of both lower extremities: Code(s): R20.2 - Paresthesia of skin Status: Acute Assessment and Plan: Neurology consulted. BLE worsening No GBS her previous admission Previous admission refused LP has agreed to this admission ordered: full LP work up -- culture/gram stain, HSV, Lyme LP with clear colorless CSF fluid, 0 RBCs, 0 total nucleated cells, 59 glucose and 20 protein Was suppose to follow-up with neurology O/P but did not Patient to follow-up with neurology for nerve conduction test Will start patient on Cymbalta currently on no medications PT/OT for evaluation (6) Pain in both lower extremities: Code(s): M79.604 - Pain in right leg; M79.605 - Pain in left leg Status: Acute Assessment and Plan: See above. Analgesics as needed. (7) Neuropathy: Code(s): G62.9 - Polyneuropathy, unspecified Status: Acute Assessment and Plan: see above. (8) Dehydration: Code(s): E86.0 - Dehydration Status: Resolved Assessment and Plan: Resolved (9) Cannabis abuse: Code(s): F12.10 - Cannabis abuse, uncomplicated Status: Acute Assessment and Plan: Drug screen positive Encouraged cessation Plan Subjective Date/time seen: 11/04/23 09:48 Interval history: Patient refused small-bowel follow-through due to nausea associated with eating the eggs. Due to not being able to do this feeding tube was then discussed again with the patient. She has refused all medications such as her appetite stimulant, antidepressant and daily vitamins. nutritional status was discussed with the patient and the urgent need for supplementation. She is agreeable for feeding tube to be placed. Discussed this with GI and they are unable to place PEG tube until Tuesday. Will order a Dobbhoff for the patient. care was discussed with dietary. Called on-call psychiatrist today and discussed patient's case with him and he is agreeable to consult on the case and see the patient in person either tonight or tomorrow. Also working with clear coordination for possible facility placement after discharge. Exam Narrative: GENERAL: Comfortable, no acute distress , extremely thin HENMT: moist mucous membra
--- NOTE | 2023-11-04 10:07 | PC.NURSE ---
To Nuclear med per skip for gastic emptying study
--- NOTE | 2023-11-04 10:30 | PCDIET ---
Addendum entered by Rosalie Nolasco RD, LDN 11/04/23 11:08: Refeeding recommendations: Check potassium, calcium, phosphate, magnesium. Correct as needed. Before feedings start, administer thiamine 200-300 mg daily, High potency vitamin B 1-2 tablets 3x day or full dose IV Vitamin B; and MV/MN once daily. Start at 20 ml/h and advance by 10 ml/h Q 12 hours until goal is reached. Jevity 1.5 @ goal rate 50 ml/h. Flush 100 ml water q 4 hours. Original Note: Tube feeding recommendations if needed: Jevity 1.5 @ goal rate 50 ml/h continuous. Start at 30 ml/h and advance by 10 ml q 8 hours as tolerated. Flush 100 ml water q 4 hours. Provides @ goal rate: 1650 kcal, 70 g protein, 836 ml free water, total 1436 ml free water with flushes. Gastric emptying study in progress today.
[2023-11-04] MEDS: MAGNESIUM SULF 2 GM/WATER 50ML 2 GM/50 ML BAG IVPB (11:02)
[2023-11-04] MEDS: ONDANSETRON INJ 4 MG/2 ML VIAL IV PUSH (11:08)
[2023-11-04 12:24] LABS: Rapid Plasma Reagin Non-Reactive (NonReactive)
[2023-11-04 13:55] VITALS: BP 101/74; PULSE 116; RESP 16; TEMP 36.7; O2SAT 100
[2023-11-04 14:20] LABS: West Nile Virus, IgM <0.90 index (<0.90)
[2023-11-04] MEDS: AMPICILLIN SULB 1.5 GM/NS 50ML 1.5 GM/50 ML VIAL IVPB ×2 (15:09→18:50)
--- NOTE | 2023-11-04 15:10 | PCPTNOTE ---
Attempted to see pt this afternoon however she was currently in a procedure (NG tube) placement per RN at station.
[2023-11-04 16:12] LABS: HIV 1/2 Ab P24 Ag Result Negative (Negative)
--- NOTE | 2023-11-04 16:41 | WPDGIPROGNO ---
Progress Note: A&P Assessment and Plan (1) Anorexia: Code(s): R63.0 - Anorexia Status: Acute Assessment and Plan: start enteral nutrition most likely PEG this tuesday, she is wasting away and hardly eating ? neurological condition, even anorexia nervosa (2) Nausea: Code(s): R11.0 - Nausea Status: Acute (3) Severe protein-calorie malnutrition: Code(s): E43 - Unspecified severe protein-calorie malnutrition Status: Acute Assessment and Plan: nutrition support (4) Hypokalemia: Code(s): E87.6 - Hypokalemia Status: Acute (5) Paresthesia of both lower extremities: Code(s): R20.2 - Paresthesia of skin Status: Acute (6) Alkalosis: Code(s): E87.3 - Alkalosis Status: Acute Subjective Date/time seen: 11/04/23 16:41 Interval history: she could not complete GES, still hardly eating decision to place DHT to start enteral feeding Review of Systems Review of Systems: All systems reviewed & are unremarkable except as noted in HPI and below Exam Narrative: GENERAL: Comfortable, no acute distress , extremely thin HENMT: moist mucous membranes, poor dentition, lanugo EYES: EOM intact b/l NECK: no lymphadenopathy RESPIRATORY: clear to auscultation, no increased respiratory effort CARDIO: Regular rate and rhythm GI:concave abdomen, nontender, bowel sounds present SKIN/EXTREMITIES: no rashes, no edema, no redness or tenderness NEURO: Answers questions appropriately, A&O x4, bilateral lower extremity strength 4/5, tenderness after portion to exam to the tops of the feet, upper extremity strength 5/5 Objective Data Vital Signs Vital Signs: Vital Signs - 24 hr 11/03/23 22:00 11/04/23 05:56 11/04/23 08:00 Temperature 97.2 F L 96.9 F L Pulse Rate 93 81 Respiratory Rate 14 13 Blood Pressure 108/83 108/73 Pulse Oximetry 100 100 96 Oxygen Delivery Room Air 11/04/23 13:55 Temperature 98.1 F Pulse Rate 116 H Respiratory Rate 16 Blood Pressure 101/74 Pulse Oximetry 100 Oxygen Delivery Intake/Output Intake/Output: Intake & Output 11/01/23 11/02/23 11/03/23 11/04/23 23:59 23:59 23:59 23:59 Intake Total 1560 2478.2 318 500 Balance 1560 2478.2 318 500 Meds/Results Medications: Active Medications Generic Name Dose Route Start Last Admin Trade Name Freq PRN Reason Stop Dose Admin Acetaminophen 650 mg 10/31/23 20:39 11/03/23 13:18 Acetaminophen 325 Mg Tablet PO 650 mg Q4H PRN Administration Mild Pain (1-3) or Fever Hydrocodone Bitart/Acetaminophen 1 tab 11/01/23 14:21 11/04/23 13:31 Hydrocodone/Acetaminophen (*Crx) 5-325 Mg Tablet PO 1 tab Q6H PRN Administration Pain Rated 4-6 Duloxetine HCl 30 mg 11/01/23 09:00 11/04/23 12:42 Duloxetine Hcl 30 Mg Capsule.Dr PO Not Given QAM [facility] Folic Acid 1 mg 11/01/23 09:00 11/04/23 12:43 Folic Acid 1 Mg Tablet PO Not Given DAILY [facility] Ampicillin Sodium/Sulbactam Sodium 1.5 gm in 50 mls @ 100 mls/hr 11/04/23 14:00 11/04/23 15:09 Unasyn 1.5 Gm/Ns 50 Ml IVPB 100 mls/hr Q6HR [facility] Administration Ketorolac Tromethamine 30 mg 11/04/23 13:43 Ketorolac 30 Mg/Ml Vial (*Bkc) IV PUSH Q6H PRN Pain Rated 4-6 Megestrol Acetate 20 mg 11/04/23 09:00 11/04/23 12:43 Megestrol Acetate (*Chemo) 20 Mg Tablet PO Not Given QAM [facility] Mirabegron 50 mg 11/01/23 09:00 11/04/23 12:43 Mirabegron 50 Mg Er Tablet PO Not Given DAILY [facility] Multivitamins Therapeutic 1 tablet 11/01/23 09:00 11/04/23 12:43 Multivitamins Therapeutic Tab (*Bkc) PO Not Given QAM [facility] Nicotine 1 patch 11/01/23 16:55 11/04/23 09:15 Nicotine (*Pbkc) 14 Mg Patch TRANSDERM 1 patch DAILY JU Administration Ondansetron HCl 4 mg 10/31/23 20:39 11/04/23 11:08 Ondansetron Inj 4 Mg/2 Ml Vial IV PUSH 4 mg Q4H PRN Administration Nausea Pantoprazole Sodium 40 mg 11/01/23 09:00 11/04/23 12:43 Pa
[2023-11-04 18:03] LABS: Varicella IgM Antibody <=0.90 (<=0.90)
[2023-11-04 19:39] LABS: Lyme Disease Ab (IgM), Blot Negative (Negative); Lyme Disease Ab(IgG), Blot Negative (Negative)
[2023-11-04 20:50] VITALS: BP 111/78; PULSE 102; RESP 12; TEMP 36.7; O2SAT 100
[2023-11-05] MEDS: AMPICILLIN SULB 1.5 GM/NS 50ML 1.5 GM/50 ML VIAL IVPB ×3 (02:34→11:32)
[2023-11-05] MEDS: HYDROcodone/acetaminophen (*CRX) 5-325 MG TABLET 1 TAB PO ×4 (02:34→21:26)
[2023-11-05] MEDS: SODIUM CHLORIDE 0.9% IV 250 ML 10 ML (03:05)
[2023-11-05 03:50] LABS: Source CSF
[2023-11-05 05:35] VITALS: BP 100/82; PULSE 97; RESP 14; TEMP 36.8; O2SAT 100
[2023-11-05] MEDS: KETOROLAC 30 MG/ML VIAL (*BKC) IV PUSH ×2 (06:12→21:26)
[2023-11-05 06:43] LABS: Hematocrit 35.1 % (37.0-47.0); Hemoglobin 12.1 g/dL (12.0-15.0); Mean Corpuscular HGB Conc 34.5 g/dl (32-36); Mean Corpuscular Hemoglobin 39.2 pg (26-34); Mean Corpuscular Volume 113.6 fl (80-100); Platelet Count Result 202 k/mm3 (150-375); Red Blood Count 3.09 M/mm3 (4.2-5.4); Red Cell Distribution Width 13.4 % (11.5-14.5); White Blood Count 4.3 K/mm3 (4.5-10.0)
[2023-11-05 06:59] LABS: Alanine Aminotransferase 23 U/L (6-35); Albumin Level 2.7 g/dL (3.5-5.1); Alkaline Phosphatase 78 U/L (38-126); Anion Gap 1 mmol/L (4-12); Aspartate Amino Transferase 42 U/L (14-36); Bilirubin,Total 0.5 mg/dL (0.2-1.3); Blood Urea Nitrogen 7 mg/dL (7-17); Calcium 8.4 mg/dL (8.4-10.2); Carbon Dioxide 32 mmol/L (22-30); Chloride 96 mmol/L (98-107); Estimated CRCL calculation 82 ml/min; Estimated Glomerular Filt Rate > 60; Glucose 97 mg/dL (65-110); Magnesium 2.1 mg/dL (1.6-2.3); Potassium 3.3 mmol/L (3.4-5.0); Sodium 129 mmol/L (137-145)
--- NOTE | 2023-11-05 08:38 | P.PNIM_ITS ---
Progress Note: A&P Assessment and Plan (1) UTI (urinary tract infection): Code(s): N39.0 - Urinary tract infection, site not specified Status: Acute Assessment and Plan: UA suspicious for UTI * Rocephin started on 10/31 * Urine culture positive for Klebsiella pansensitive. * Patient transition to p.o. antibiotics of Augmentin on 11/01 * 11/03 Antibiotics transition to Unasyn due to patient unable to swallow pills. * 11/04 Antibiotics transitioned back to PO after Dobbhoff was placed (2) Anorexia: Code(s): R63.0 - Anorexia Status: Acute Assessment and Plan: Start on Megestrol, Ensure ice cream, vitamin supplementation and Cymbalta * Concern for psychiatric component * Rule out all structural causes of patients weight loss * EGD with no acute abnormalities * Gastric emptying scan today. * Psychiatric consult. * Labs: b12 (WNL), folate (WNL), Vit D, TSH (WNL), RPR (neg), HIV (neg) --> (as well as comprehensive neurologic workup) (3) Severe protein-calorie malnutrition: Code(s): E43 - Unspecified severe protein-calorie malnutrition Status: Acute Assessment and Plan: * Patient reports difficulty swallowing * GI consulted and appreciate recommendations. * High-protein Ensure with each meal * Severe electrolyte imbalance on admission --> resolved. * Started on folic acid, multivitamin, thiamine * EGD did not show any abnormalities. * Patient refused small bowel follow-through due to unable to eat the aches * Spoke with GI and plan to place feeding tube on Tuesday. Dobbhoff to be placed today. (4) Hypokalemia: Code(s): E87.6 - Hypokalemia Status: Acute Assessment and Plan: Replace as necessary. Likely hypokalemic due to malnutrition. (5) Paresthesia of both lower extremities: Code(s): R20.2 - Paresthesia of skin Status: Acute Assessment and Plan: * Neurology consulted. * BLE worsening * No GBS her previous admission * Previous admission refused LP has agreed to this admission * ordered: full LP work up -- culture/gram stain, HSV, Lyme * LP with clear colorless CSF fluid, 0 RBCs, 0 total nucleated cells, 59 glucose and 20 protein * Was suppose to follow-up with neurology O/P but did not * Patient to follow-up with neurology for nerve conduction test. This is been scheduled as an outpatient. * Will start patient on Cymbalta currently on no medications * PT/OT for evaluation (6) Pain in both lower extremities: Code(s): M79.604 - Pain in right leg; M79.605 - Pain in left leg Status: Acute Assessment and Plan: See above. Analgesics as needed. (7) Neuropathy: Code(s): G62.9 - Polyneuropathy, unspecified Status: Acute Assessment and Plan: see above. (8) Dehydration: Code(s): E86.0 - Dehydration Status: Resolved Assessment and Plan: Resolved (9) Cannabis abuse: Code(s): F12.10 - Cannabis abuse, uncomplicated Status: Acute Assessment and Plan: Drug screen positive * Encouraged cessation Plan Subjective Date/time seen: 11/05/23 08:38 Interval history: Discussed with patient the issues with insurance regarding her feeding tube. If insurance will not cover a PEG tube she may not be able to discharge with 1. She continues to have the Dobbhoff. She is feeling somewhat better but states that she is very tired. Her m
--- NOTE | 2023-11-05 08:38 | PM.IMPN ---
Progress Note: A&P Assessment and Plan (1) UTI (urinary tract infection): Code(s): N39.0 - Urinary tract infection, site not specified Status: Acute Assessment and Plan: UA suspicious for UTI Rocephin started on 10/31 Urine culture positive for Klebsiella pansensitive. Patient transition to p.o. antibiotics of Augmentin on 11/01 11/03 Antibiotics transition to Unasyn due to patient unable to swallow pills. 11/04 Antibiotics transitioned back to PO after Dobbhoff was placed (2) Anorexia: Code(s): R63.0 - Anorexia Status: Acute Assessment and Plan: Start on Megestrol, Ensure ice cream, vitamin supplementation and Cymbalta Concern for psychiatric component Rule out all structural causes of patients weight loss EGD with no acute abnormalities Gastric emptying scan today. Psychiatric consult. Labs: b12 (WNL), folate (WNL), Vit D, TSH (WNL), RPR (neg), HIV (neg) --> (as well as comprehensive neurologic workup) (3) Severe protein-calorie malnutrition: Code(s): E43 - Unspecified severe protein-calorie malnutrition Status: Acute Assessment and Plan: Patient reports difficulty swallowing GI consulted and appreciate recommendations. High-protein Ensure with each meal Severe electrolyte imbalance on admission --> resolved. Started on folic acid, multivitamin, thiamine EGD did not show any abnormalities. Patient refused small bowel follow-through due to unable to eat the aches Spoke with GI and plan to place feeding tube on Tuesday. Dobbhoff to be placed today. (4) Hypokalemia: Code(s): E87.6 - Hypokalemia Status: Acute Assessment and Plan: Replace as necessary. Likely hypokalemic due to malnutrition. (5) Paresthesia of both lower extremities: Code(s): R20.2 - Paresthesia of skin Status: Acute Assessment and Plan: Neurology consulted. BLE worsening No GBS her previous admission Previous admission refused LP has agreed to this admission ordered: full LP work up -- culture/gram stain, HSV, Lyme LP with clear colorless CSF fluid, 0 RBCs, 0 total nucleated cells, 59 glucose and 20 protein Was suppose to follow-up with neurology O/P but did not Patient to follow-up with neurology for nerve conduction test. This is been scheduled as an outpatient. Will start patient on Cymbalta currently on no medications PT/OT for evaluation (6) Pain in both lower extremities: Code(s): M79.604 - Pain in right leg; M79.605 - Pain in left leg Status: Acute Assessment and Plan: See above. Analgesics as needed. (7) Neuropathy: Code(s): G62.9 - Polyneuropathy, unspecified Status: Acute Assessment and Plan: see above. (8) Dehydration: Code(s): E86.0 - Dehydration Status: Resolved Assessment and Plan: Resolved (9) Cannabis abuse: Code(s): F12.10 - Cannabis abuse, uncomplicated Status: Acute Assessment and Plan: Drug screen positive Encouraged cessation Plan Subjective Date/time seen: 11/05/23 08:38 Interval history: Discussed with patient the issues with insurance regarding her feeding tube. If insurance will not cover a PEG tube she may not be able to discharge with 1. She continues to have the Dobbhoff. She is feeling somewhat better but states that she is very tired. Her mom is traveling to come and see her. Patient denies any lightheadedness, dizziness, visual changes, heart palpitations, chest pain or shortness of breath. She continues to have pain in her lower extremities. Discussed with Neurology today and they have scheduled patient in outpatient nerve conduction study. Patient was also seen by psychiatrist today. See neurology and Psychiatry notes. Working with Care coordination regards to patient's insurance and feeding tube. Exam Narrative: GENERAL: Comfortable, no acute
[2023-11-05 09:25] VITALS: PULSE 97; RESP 14; O2SAT 100
[2023-11-05] MEDS: FOLIC ACID 1 MG TABLET PO (09:26)
[2023-11-05] MEDS: VITAMIN B COMPLEX CAPSULE 1 CAP PO (09:26)
[2023-11-05] MEDS: MEGESTROL ACETATE (*CHEMO) 20 MG TABLET PO (09:27)
[2023-11-05] MEDS: DULoxetine HCL 30 MG CAPSULE.DR PO (09:27)
[2023-11-05] MEDS: MULTIVITAMINS THERAPEUTIC TAB (*BKC) 1 TABLET PO (09:28)
[2023-11-05] MEDS: NICOTINE (*PBKC) 14 MG PATCH 1 PATCH TRANSDERM (09:29)
[2023-11-05] MEDS: THIAMINE HCL 200 MG/2 ML VIAL 300 MG IV PUSH (09:58)
--- NOTE | 2023-11-05 10:03 | WPDNEUROPN ---
Progress Note: A&P Assessment and Plan (1) Paresthesia of both lower extremities: Code(s): R20.2 - Paresthesia of skin Status: Acute (2) Neuropathy: Code(s): G62.9 - Polyneuropathy, unspecified Status: Acute (3) Anorexia: Code(s): R63.0 - Anorexia Status: Acute Plan sorin León is a 33 year old female with a history of > one year history of paraesthesias in the lower extremities and gait instability presenting for worsening symptoms. Exam is concerning for progressive neuropathy of unclear etiology - considering CIDP vs other forms of peripheral neuropathy such as paraneoplastic, autoimmune, vitamin deficiency etc. Folate is on the lower side with elevated MCV so that could be a potential cause of neuropathy. Patient initially presented with these symptoms in May 2023. At that time she was reporting a one year history of paraesthesias in her thighs, worsening numbness/difficulty ambulating for the prior few weeks. She is now presented again due to worsening paraesthesias in the lower extremities, which has progressed up to her hands. It's hard to tell if she has weakness secondary to the neuropathy or more related to deconditioning/weight loss. I would be willing to trial a course of IVIG, but I am concerned about the risks associated with it, especially given her current condition. She will absolutely need an EMG/NCS and follow-up as outpatient and then decision regarding IVIG can be made from then. Repeat MRI brain and spine with and without contrast were negative. - Ordered neuropathy labs including B1, heavy metal, immunofixation, KATEY, SSA/SSB, ANCA, paraneoplastic panel and ganglioside antibodies - EMG/NCS scheduled for 11/13 at 10AM -- I let patient know, please include in patient's discharge paperwork - Folate level is still on the lower end of normal, recommend daily supplementation - Scheduled gabapentin TID can be used in place of PRN [place] for paraesthesias Subjective Date/time seen: 11/05/23 10:03 Interval history: Ester León is a 33 year old female with a history of > one year history of paraesthesias in the lower extremities and gait instability presenting for worsening symptoms. Patient initially presented with these symptoms in May 2023. At that time she was reporting a one year history of paraesthesias in her thighs, worsening numbness/difficulty ambulating for the prior few weeks. She had a thirty lb weight loss and was also noted to be deficient in folate. At that time considering more chronic neuropathy, but with the subacute worsening, also was considering AIDP/GBS. She had an MRI brain, cervical, thoracic, and lumbar spine which were all unrevealing. Patient ultimately declined LP and was discharged with follow-up with neurology, which she did not do. She presents now with worsening paraesthesias in the lower extremities, which has now also extended to her hands. Her weight is 31kg. She is being worked up for the cause of her weight loss. LP has been done which shows normal cell count and protein. She is to the point that she is requiring a walker. She drinks about 1/5th of a bottle of hard liqueur a week (But not every week). Repeat MRI brain, cervical spine, thoracic spine, and lumbar spine with and without contrast is unrevealing. EMG/NCS scheduled. She is feeling better today, has been getting norco PRN for pain. Review of Systems Review of Systems: All systems reviewed & are unremarkable except as noted in HPI and below Exam Const: General: comfortable and no acute distress Other: very thin Eyes: Pupils: Equal, round and reactive pupils present EOM: EOMs intact bilaterally Resp: Effort & Inspection: normal respiratory effort Skin: General skin exam: normal color Neuro: Other: Pupils equal and reactive bilaterally, EOMI, face symmetric, facial sensation intact, tongue protrudes midline, palate midline. Shoulder shrug normal. Strength 4/5 througho
[2023-11-05] MEDS: POTASSIUM CHLORIDE 20 MEQ PACKET (FOR LIQUID) 40 MEQ PO (11:31)
--- NOTE | 2023-11-05 11:39 | WPDCNPSYCH ---
Assessment and Plan Assessment and plan (1) Eating disorder, unspecified: Code(s): F50.9 - Eating disorder, unspecified Status: Acute Assessment and Plan: DISCUSSION:? Patient presents with an eating/feeding disturbance where she avoids foods based upon concern about adverse of consequences of eating such as prompt diarrhea or vomiting.? She also finds that certain characteristics of food are aggravating factors for her vomiting and diarrhea such as if the peeling is left on apple slices and is unable to tolerate oranges.? She has had significant weight loss as evidenced by a BMI of 12. She is on enteral feeding and is scheduled for PEG placement on 11/07/2023.? The eating/feeding disturbance is interfering significantly with her psychosocial functioning.? She has become so weak she has to use a walker and can walk only short distances.? She is unable to drive a car because of the neuropathy that has occurred.? 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 The eating/feeding disturbance is not explained by a lack of food or by an associated cultural sanction practice.? This eating disturbance does not occur during a course of anorexia nervosa or bulimia nervosa and there is no body dysmorphia. The above findings are suggestive of? Avoidant/Restrictive Food Intake Disorder (F50.82). ?However, the patient is undergoing aggressive organic/medical evaluation to rule out any medical contribution that could explain her eating disturbance.? Consequently, the preponderance of the evidence supports the diagnosis of? Unspecified Feeding or Eating Disorder. ??At this time, insufficient evidence is present to support a diagnosis of a primary mood disturbance.? The patient is also undergoing medical evaluation for potential medical source to her symptoms. DIAGNOSES/PROBLEM LIST: Unspecified feeding or eating disorder F50.9 PLAN:? Continue medical evaluation for medical contribution to the patient's symptoms at. After medical evaluation, consider referral to an eating disorder clinic for residential treatment; or for outpatient treatment with psychotherapy and follow-up with the psychiatrist because the patient does have in addition to her eating disorder a history of trauma and a history of prior treatment both with counseling and with medication for depression and anxiety. Continue treatment with duloxetine (Cymbalta) for treatment of her neuropathy.? Cymbalta is also FDA approved for treating major depression and anxiety. HPI Data of Consult Date/Time: 11/05/23 11:39 Requesting Physician: Tri Mckeon MD Primary Care Provider: C[employer] FINISHING SUPERVISOR PHYSICIAN Consult Narrative Narrative: CHIEF COMPLAINT/REASON FOR CONSULTATION: Patient is a 33-year-old lady admitted 10/31/2023 for bilateral paresthesias in the context of a BMI of 12, UTI and drinking a 5th of alcohol per week. Psychiatric evaluation is called to evaluate for possible eating disorder. HISTORY OF PRESENT ILLNESS: Patient, her nurse, and her nurse practitioner as well as chart served as historians. The patient reports that the reason she thinks consultation was requested his that she has an eating disorder. She reports she gets nauseated after eating and that sometimes the nausea is present even when she has not been eating. She reports that every time she eats or drinks something she needs to quickly within 2minutes have a diarrheal stool. Well eating she becomes nauseated and needs to stop eating because if she continues she feels she would vomit. She also has been in pain in her hands and feet. Relieving Factors: She reports she is able to nipple on care it sticks and apple slices throughout the day just to get some nutrition in. She finds that fresh fruits and vegetables and sometimes peanut butter or cold foods are better tolerated but her still poorly tolerated than other food stuffs. She is able t
--- NOTE | 2023-11-05 11:46 | WPDGIPROGNO ---
Progress Note: A&P Assessment and Plan (1) Anorexia: Code(s): R63.0 - Anorexia Status: Acute Assessment and Plan: start enteral nutrition we need to hear back from care coordination before making a decision if she will get PEG placement evaluation but psychiatry right now ? anorexia nervosa neurology also on board (2) Nausea: Code(s): R11.0 - Nausea Status: Acute Assessment and Plan: chronic she could not complete GES (3) Severe protein-calorie malnutrition: Code(s): E43 - Unspecified severe protein-calorie malnutrition Status: Acute Assessment and Plan: nutrition support (4) Hypokalemia: Code(s): E87.6 - Hypokalemia Status: Acute (5) Paresthesia of both lower extremities: Code(s): R20.2 - Paresthesia of skin Status: Acute Subjective Date/time seen: 11/05/23 11:46 Interval history: she is on tube feeding by DHT, right now talking to psychiatrist Also I talked to care coordination, unsure if her insurance will accept PEG placement and feeding maintenance. Review of Systems Review of Systems: All systems reviewed & are unremarkable except as noted in HPI and below Exam Const: General: no acute distress Other: cachectic HENMT: Other: DHT in place Eyes: Sclera: sclerae normal Neck: Neck: supple Chest: Chest palpation & inspection: normal inspection of the chest Resp: Effort & Inspection: normal respiratory effort Auscultation: clear to auscultation bilaterally Cardio: Rate: regular rate Rhythm: regular rhythm GI: GI Palp: No abdominal tenderness and Yes Soft to palpation Auscultation: normal bowel sounds : General: Yes bladder normal to palpation Skin: General skin exam: normal color Neuro: Speech: normal speech Other: decrease muscle mass Extrem: General: normal to inspection and no edema Psych: Affect: Anxious affect present Objective Data Vital Signs Vital Signs: Vital Signs - 24 hr 11/04/23 13:55 11/04/23 20:50 11/05/23 05:35 Temperature 98.1 F 98.0 F 98.3 F Pulse Rate 116 H 102 H 97 Respiratory Rate 16 12 14 Blood Pressure 101/74 111/78 100/82 Pulse Oximetry 100 100 100 Intake/Output Intake/Output: Intake & Output 04/10/24 04/11/24 04/12/24 04/13/24 23:59 23:59 23:59 23:59 Intake Total 2478.2 318 650 120 Balance 2478.2 318 650 120 Meds/Results Medications: Active Medications Generic Name Dose Route Start Last Admin Trade Name Freq PRN Reason Stop Dose Admin Acetaminophen 650 mg 10/31/23 20:39 11/03/23 13:18 Acetaminophen 325 Mg Tablet PO 650 mg Q4H PRN Administration Mild Pain (1-3) or Fever Hydrocodone Bitart/Acetaminophen 1 tab 11/01/23 14:21 11/05/23 09:28 Hydrocodone/Acetaminophen (*Crx) 5-325 Mg Tablet PO 1 tab Q6H PRN Administration Pain Rated 4-6 Amoxicillin/Clavulanate Potassium 1 tablet 11/05/23 18:00 Amoxicillin/Clavulanate K 875-125 Mg Tab PO Q12H JU Duloxetine HCl 30 mg 11/01/23 09:00 11/05/23 09:27 Duloxetine Hcl 30 Mg Capsule.Dr PO 30 mg QAM JU Administration Folic Acid 1 mg 11/01/23 09:00 11/05/23 09:26 Folic Acid 1 Mg Tablet PO 1 mg DAILY JU Administration Ampicillin Sodium/Sulbactam Sodium 1.5 gm in 50 mls @ 100 mls/hr 11/04/23 14:00 11/05/23 11:32 Unasyn 1.5 Gm/Ns 50 Ml IVPB 11/05/23 16:00 100 mls/hr Q6HR JU Administration Ketorolac Tromethamine 30 mg 11/04/23 13:43 11/05/23 06:12 Ketorolac 30 Mg/Ml Vial (*Bkc) IV PUSH 30 mg Q6H PRN Administration Pain Rated 4-6 Megestrol Acetate 20 mg 11/04/23 09:00 11/05/23 09:27 Megestrol Acetate (*Chemo) 20 Mg Tablet PO 20 mg QAM JU Administration Mirabegron 50 mg 11/01/23 09:00 11/05/23 09:28 Mirabegron 50 Mg Er Tablet PO Not Given DAILY JU Multivitamins Therapeutic 1 tablet 11/01/23 09:00 11/05/23 09:28 Multivitamins Therapeutic Tab (*Bkc) PO 1 tablet
[2023-11-05 12:20] LABS: VDRL Quantitative CSF Nonreactive (Nonreactive)
[2023-11-05 14:00] VITALS: BP 105/68; PULSE 80; RESP 16; TEMP 37.3; O2SAT 100
--- NOTE | 2023-11-05 16:34 | PC.NURSE ---
On 11/05/23, the DRIVE THRU ORDER TAKER, Mirta, provided care and completed [facility] documentation on this patient. I have reviewed the DR[employer] TH[employer] ORDER TAKER's documentation and agree with the findings.
[2023-11-05] MEDS: AMOXICILLIN/CLAVULANATE K 875-125 MG TAB 1 TABLET PO (17:21)
[2023-11-05 20:35] VITALS: BP 101/67; PULSE 83; RESP 12; TEMP 36.6; O2SAT 97
[2023-11-06] MEDS: HYDROcodone/acetaminophen (*CRX) 5-325 MG TABLET 1 TAB PO ×3 (04:32→15:39)
[2023-11-06] MEDS: AMOXICILLIN/CLAVULANATE K 875-125 MG TAB 1 TABLET PO ×2 (04:33→18:56)
[2023-11-06 05:52] VITALS: BP 103/75; PULSE 78; RESP 12; TEMP 36; O2SAT 100
[2023-11-06 05:53] LABS: Hematocrit 36.9 % (37.0-47.0); Hemoglobin 12.7 g/dL (12.0-15.0); Mean Corpuscular HGB Conc 34.4 g/dl (32-36); Mean Corpuscular Hemoglobin 40.1 pg (26-34); Mean Corpuscular Volume 116.4 fl (80-100); Platelet Count Result 211 k/mm3 (150-375); Red Blood Count 3.17 M/mm3 (4.2-5.4); Red Cell Distribution Width 13.3 % (11.5-14.5); White Blood Count 3.6 K/mm3 (4.5-10.0)
[2023-11-06 06:19] LABS: Alanine Aminotransferase 22 U/L (6-35); Albumin Level 2.9 g/dL (3.5-5.1); Alkaline Phosphatase 80 U/L (38-126); Anion Gap 3 mmol/L (4-12); Aspartate Amino Transferase 36 U/L (14-36); Bilirubin,Total 0.5 mg/dL (0.2-1.3); Blood Urea Nitrogen 11 mg/dL (7-17); Calcium 8.8 mg/dL (8.4-10.2); Carbon Dioxide 28 mmol/L (22-30); Chloride 103 mmol/L (98-107); Estimated CRCL calculation 82 ml/min; Estimated Glomerular Filt Rate > 60; Glucose 96 mg/dL (65-110); Magnesium 1.9 mg/dL (1.6-2.3); Potassium 4.5 mmol/L (3.4-5.0); Sodium 134 mmol/L (137-145)
[2023-11-06 06:55] LABS: HIV 1 2 Ag Ab 4th Gen w Rflxs NON-REACTIVE (NON-REACTIVE)
[2023-11-06] MEDS: MEGESTROL ACETATE (*CHEMO) 20 MG TABLET PO (09:28)
[2023-11-06] MEDS: VITAMIN B COMPLEX CAPSULE 1 CAP PO (09:28)
[2023-11-06] MEDS: MULTIVITAMINS THERAPEUTIC TAB (*BKC) 1 TABLET PO (09:28)
[2023-11-06] MEDS: DULoxetine HCL 30 MG CAPSULE.DR PO (09:28)
[2023-11-06] MEDS: FOLIC ACID 1 MG TABLET PO (09:28)
[2023-11-06] MEDS: NICOTINE (*PBKC) 14 MG PATCH 1 PATCH TRANSDERM (09:28)
[2023-11-06] MEDS: KETOROLAC 30 MG/ML VIAL (*BKC) IV PUSH ×2 (09:37→18:53)
[2023-11-06] MEDS: THIAMINE HCL 200 MG/2 ML VIAL 300 MG IV PUSH (09:38)
--- NOTE | 2023-11-06 12:46 | P.PNIM_ITS ---
Progress Note: A&P Assessment and Plan (1) UTI (urinary tract infection): Code(s): N39.0 - Urinary tract infection, site not specified Status: Acute Assessment and Plan: UA suspicious for UTI * Rocephin started on 10/31 * Urine culture positive for Klebsiella pansensitive. * Patient transition to p.o. antibiotics of Augmentin on 11/01 * 11/03 Antibiotics transition to Unasyn due to patient unable to swallow pills. * 11/04 Antibiotics transitioned back to PO after Dobbhoff was placed (2) Anorexia: Code(s): R63.0 - Anorexia Status: Acute Assessment and Plan: Start on Megestrol, Ensure ice cream, vitamin supplementation and Cymbalta * Concern for psychiatric component * Rule out all structural causes of patients weight loss * EGD with no acute abnormalities * Patient unable to tolerate eggs for Gastric emptying scan * Psychiatric consult. * Labs: b12 (WNL), folate (WNL), Vit D, TSH (WNL), RPR (neg), HIV (neg) --> (as well as comprehensive neurologic workup) (3) Severe protein-calorie malnutrition: Code(s): E43 - Unspecified severe protein-calorie malnutrition Status: Acute Assessment and Plan: * Patient reports difficulty swallowing * GI consulted and appreciate recommendations. * High-protein Ensure with each meal * Severe electrolyte imbalance on admission --> resolved. * Started on folic acid, multivitamin, thiamine * EGD did not show any abnormalities. * Patient refused small bowel follow-through due to unable to eat the aches * Spoke with GI and plan to place feeding tube on Tuesday. Dobbhoff to be placed 11/03. (4) Hypokalemia: Code(s): E87.6 - Hypokalemia Status: Acute Assessment and Plan: Replace as necessary. Likely hypokalemic due to malnutrition. (5) Paresthesia of both lower extremities: Code(s): R20.2 - Paresthesia of skin Status: Acute Assessment and Plan: * Neurology consulted. * BLE worsening * No GBS her previous admission * Previous admission refused LP has agreed to this admission * ordered: full LP work up -- culture/gram stain, HSV, Lyme * LP with clear colorless CSF fluid, 0 RBCs, 0 total nucleated cells, 59 glucose and 20 protein * Was suppose to follow-up with neurology O/P but did not * Patient to follow-up with neurology for nerve conduction test. This is been scheduled as an outpatient. * Will start patient on Cymbalta currently on no medications * PT/OT for evaluation (6) Pain in both lower extremities: Code(s): M79.604 - Pain in right leg; M79.605 - Pain in left leg Status: Acute Assessment and Plan: See above. Analgesics as needed. (7) Neuropathy: Code(s): G62.9 - Polyneuropathy, unspecified Status: Acute Assessment and Plan: see above. (8) Dehydration: Code(s): E86.0 - Dehydration Status: Resolved Assessment and Plan: Resolved (9) Cannabis abuse: Code(s): F12.10 - Cannabis abuse, uncomplicated Status: Acute Assessment and Plan: Drug screen positive * Encouraged cessation Plan Subjective Date/time seen: 11/06/23 12:46 Interval history: Patient doing well today. Discussed patient's case with attending physician. He relates that patient may be able to use Ensure in her potential PEG tube. a plan on discussing this possibility with dietitian. Dietitian will be back in the
--- NOTE | 2023-11-06 12:46 | PM.IMPN ---
Progress Note: A&P Assessment and Plan (1) UTI (urinary tract infection): Code(s): N39.0 - Urinary tract infection, site not specified Status: Acute Assessment and Plan: UA suspicious for UTI Rocephin started on 10/31 Urine culture positive for Klebsiella pansensitive. Patient transition to p.o. antibiotics of Augmentin on 11/01 11/03 Antibiotics transition to Unasyn due to patient unable to swallow pills. 11/04 Antibiotics transitioned back to PO after Dobbhoff was placed (2) Anorexia: Code(s): R63.0 - Anorexia Status: Acute Assessment and Plan: Start on Megestrol, Ensure ice cream, vitamin supplementation and Cymbalta Concern for psychiatric component Rule out all structural causes of patients weight loss EGD with no acute abnormalities Patient unable to tolerate eggs for Gastric emptying scan Psychiatric consult. Labs: b12 (WNL), folate (WNL), Vit D, TSH (WNL), RPR (neg), HIV (neg) --> (as well as comprehensive neurologic workup) (3) Severe protein-calorie malnutrition: Code(s): E43 - Unspecified severe protein-calorie malnutrition Status: Acute Assessment and Plan: Patient reports difficulty swallowing GI consulted and appreciate recommendations. High-protein Ensure with each meal Severe electrolyte imbalance on admission --> resolved. Started on folic acid, multivitamin, thiamine EGD did not show any abnormalities. Patient refused small bowel follow-through due to unable to eat the aches Spoke with GI and plan to place feeding tube on Tuesday. Dobbhoff to be placed 11/03. (4) Hypokalemia: Code(s): E87.6 - Hypokalemia Status: Acute Assessment and Plan: Replace as necessary. Likely hypokalemic due to malnutrition. (5) Paresthesia of both lower extremities: Code(s): R20.2 - Paresthesia of skin Status: Acute Assessment and Plan: Neurology consulted. BLE worsening No GBS her previous admission Previous admission refused LP has agreed to this admission ordered: full LP work up -- culture/gram stain, HSV, Lyme LP with clear colorless CSF fluid, 0 RBCs, 0 total nucleated cells, 59 glucose and 20 protein Was suppose to follow-up with neurology O/P but did not Patient to follow-up with neurology for nerve conduction test. This is been scheduled as an outpatient. Will start patient on Cymbalta currently on no medications PT/OT for evaluation (6) Pain in both lower extremities: Code(s): M79.604 - Pain in right leg; M79.605 - Pain in left leg Status: Acute Assessment and Plan: See above. Analgesics as needed. (7) Neuropathy: Code(s): G62.9 - Polyneuropathy, unspecified Status: Acute Assessment and Plan: see above. (8) Dehydration: Code(s): E86.0 - Dehydration Status: Resolved Assessment and Plan: Resolved (9) Cannabis abuse: Code(s): F12.10 - Cannabis abuse, uncomplicated Status: Acute Assessment and Plan: Drug screen positive Encouraged cessation Plan Subjective Date/time seen: 11/06/23 12:46 Interval history: Patient doing well today. Discussed patient's case with attending physician. He relates that patient may be able to use Ensure in her potential PEG tube. a plan on discussing this possibility with dietitian. Dietitian will be back in the hospital tomorrow. Patient tolerating her tube feeds well and electrolytes are stable. Continue to encourage eating and drinking with patient feels up to it. Exam Narrative: GENERAL: Comfortable, no acute distress , extremely thin HENMT: moist mucous membranes, poor dentition, lanugo EYES: EOM intact b/l NECK: no lymphadenopathy RESPIRATORY: clear to auscultation, no increased respiratory effort CARDIO: Regular rate and rhythm GI:concave abdomen, nontender, bowel sounds present SKIN/EXTREMITIES: no rashes, no
[2023-11-06 13:49] VITALS: BP 113/83; PULSE 82; RESP 20; TEMP 36.4; O2SAT 100
--- NOTE | 2023-11-06 14:40 | WPDGIPROGNO ---
Progress Note: A&P Assessment and Plan (1) Anorexia: Code(s): R63.0 - Anorexia Status: Acute Assessment and Plan: started on enteral nutrition by DHT and tolerating we still need to hear back again from care coordination before making a decision if she will get PEG placement, we do not know if insurance will agree to cover for her feeding supplies evaluated but psychiatry neurology also on board (2) Nausea: Code(s): R11.0 - Nausea Status: Acute Assessment and Plan: chronic she could not complete GES (3) Severe protein-calorie malnutrition: Code(s): E43 - Unspecified severe protein-calorie malnutrition Status: Acute Assessment and Plan: nutrition support (4) Paresthesia of both lower extremities: Code(s): R20.2 - Paresthesia of skin Status: Acute Subjective Date/time seen: 11/06/23 14:40 Interval history: tolerating tube feeding at 50 ml/h by DHT, she is also eating some with some discomfort at throat because tube Review of Systems Review of Systems: All systems reviewed & are unremarkable except as noted in HPI and below Exam Const: General: no acute distress Other: cachectic HENMT: Other: DHT in place Eyes: Sclera: sclerae normal Neck: Neck: supple Chest: Chest palpation & inspection: normal inspection of the chest Resp: Effort & Inspection: normal respiratory effort Auscultation: clear to auscultation bilaterally Cardio: Rate: regular rate Rhythm: regular rhythm GI: GI Palp: No abdominal tenderness and Yes Soft to palpation Auscultation: normal bowel sounds : General: Yes bladder normal to palpation Skin: General skin exam: normal color Neuro: Speech: normal speech Other: decrease muscle mass Extrem: General: normal to inspection and no edema Psych: Affect: Anxious affect present Objective Data Vital Signs Vital Signs: Vital Signs - 24 hr 11/05/23 20:35 11/06/23 05:52 11/06/23 09:25 Temperature 97.8 F 96.8 F L Pulse Rate 83 78 Respiratory Rate 12 12 Blood Pressure 101/67 103/75 Pulse Oximetry 97 100 Oxygen Delivery Room Air 11/06/23 13:49 Temperature 97.6 F Pulse Rate 82 Respiratory Rate 20 Blood Pressure 113/83 Pulse Oximetry 100 Oxygen Delivery Intake/Output Intake/Output: Intake & Output 11/03/23 11/04/23 11/05/23 11/06/23 23:59 23:59 23:59 23:59 Intake Total 318 650 170 125 Balance 318 650 170 125 Meds/Results Medications: Active Medications Generic Name Dose Route Start Last Admin Trade Name Freq PRN Reason Stop Dose Admin Acetaminophen 650 mg 10/31/23 20:39 11/03/23 13:18 Acetaminophen 325 Mg Tablet PO 650 mg Q4H PRN Administration Mild Pain (1-3) or Fever Hydrocodone Bitart/Acetaminophen 1 tab 11/01/23 14:21 11/06/23 11:20 Hydrocodone/Acetaminophen (*Crx) 5-325 Mg Tablet PO 1 tab Q6H PRN Administration Pain Rated 4-6 Amoxicillin/Clavulanate Potassium 1 tablet 11/05/23 18:00 11/06/23 04:33 Amoxicillin/Clavulanate K 875-125 Mg Tab PO 1 tablet Q12H JU Administration Duloxetine HCl 30 mg 11/01/23 09:00 11/06/23 09:28 Duloxetine Hcl 30 Mg Capsule.Dr PO 30 mg QAM JU Administration Folic Acid 1 mg 11/01/23 09:00 11/06/23 09:28 Folic Acid 1 Mg Tablet PO 1 mg DAILY JU Administration Ketorolac Tromethamine 30 mg 11/04/23 13:43 11/06/23 09:37 Ketorolac 30 Mg/Ml Vial (*Bkc) IV PUSH 30 mg Q6H PRN Administration Pain Rated 4-6 Megestrol Acetate 20 mg 11/04/23 09:00 11/06/23 09:28 Megestrol Acetate (*Chemo) 20 Mg Tablet PO 20 mg QAM JU Administration Mirabegron 50 mg 11/01/23 09:00 11/06/23 09:28 Mirabegron 50 Mg Er Tablet PO Not Given DAILY [facility] Multivitamins Therapeutic 1 tablet 11/01/23 09:00 11/06/23 09:28 Multivitamins Therapeutic Tab (*Bkc) PO 1 tablet QAM JU Administration Nicotine 1 patch 11/01/23 16:55 11/06/23 09
[2023-11-06] MEDS: ONDANSETRON INJ 4 MG/2 ML VIAL IV PUSH (21:00)
--- NOTE | 2023-11-06 21:00 | P.PNCROSS_ITS ---
Event Note Event Note Event Note: Cross Coverage: patient complaining of HOFF. Not covered with [place] or Toradol. Was alleviated with [place] yesterday. Not currently on fluids but was fluid resuscitated during initial evaluation. Will give 1L LR, Benadryl 25 mg IV, and Compazine IV. Described headache as frontal, pressure behind her eyes, and with associated nausea.
[2023-11-06] MEDS: PROCHLORPERAZINE EDISYLATE 10 MG/2 ML VIAL IV PUSH (21:05)
[2023-11-06] MEDS: diphenhydrAMINE HCl INJ 50 MG/ML VIAL 25 MG IV PUSH (21:05)
[2023-11-06] MEDS: LACTATED RINGERS 1,000 ML 999 ML IV CONT (21:05)
[2023-11-06 22:00] VITALS: BP 127/92; PULSE 101; RESP 24; TEMP 35.9; O2SAT 100
[2023-11-07 05:49] VITALS: BP 99/74; PULSE 87; RESP 12; TEMP 36.6; O2SAT 100
[2023-11-07 05:59] LABS: Hematocrit 34.2 % (37.0-47.0); Hemoglobin 11.7 g/dL (12.0-15.0); Mean Corpuscular HGB Conc 34.2 g/dl (32-36); Mean Corpuscular Hemoglobin 40.1 pg (26-34); Mean Corpuscular Volume 117.1 fl (80-100); Mean Platelet Volume 10.4 fl (7.4-10.4); Platelet Count Result 177 k/mm3 (150-375); Red Blood Count 2.92 M/mm3 (4.2-5.4); Red Cell Distribution Width 13.6 % (11.5-14.5); White Blood Count 3.8 K/mm3 (4.5-10.0)
[2023-11-07 06:14] LABS: Alanine Aminotransferase 21 U/L (6-35); Albumin Level 2.6 g/dL (3.5-5.1); Alkaline Phosphatase 75 U/L (38-126); Anion Gap 4 mmol/L (4-12); Aspartate Amino Transferase 37 U/L (14-36); Bilirubin,Total 0.5 mg/dL (0.2-1.3); Blood Urea Nitrogen 14 mg/dL (7-17); Calcium 8.7 mg/dL (8.4-10.2); Carbon Dioxide 25 mmol/L (22-30); Chloride 106 mmol/L (98-107); Estimated CRCL calculation 82 ml/min; Estimated Glomerular Filt Rate > 60; Glucose 95 mg/dL (65-110); Magnesium 1.8 mg/dL (1.6-2.3); Phosphorus 3.8 mg/dL (2.5-4.5); Potassium 4.2 mmol/L (3.4-5.0); Sodium 135 mmol/L (137-145)
[2023-11-07] MEDS: AMOXICILLIN/CLAVULANATE K 875-125 MG TAB 1 TABLET PO ×2 (06:14→17:04)
[2023-11-07] MEDS: KETOROLAC 30 MG/ML VIAL (*BKC) IV PUSH (06:19)
[2023-11-07] MEDS: HYDROcodone/acetaminophen (*CRX) 5-325 MG TABLET 1 TAB PO ×3 (07:42→19:53)
[2023-11-07] MEDS: DULoxetine HCL 30 MG CAPSULE.DR PO (08:35)
[2023-11-07] MEDS: VITAMIN B COMPLEX CAPSULE 1 CAP PO (08:35)
[2023-11-07] MEDS: PANTOPRAZOLE 40 MG TABLET PO (08:36)
[2023-11-07] MEDS: MIRABEGRON 50 MG ER TABLET PO (08:36)
[2023-11-07] MEDS: FOLIC ACID 1 MG TABLET PO (08:36)
[2023-11-07] MEDS: MEGESTROL ACETATE (*CHEMO) 20 MG TABLET PO (08:36)
[2023-11-07] MEDS: MULTIVITAMINS THERAPEUTIC TAB (*BKC) 1 TABLET PO (08:36)
[2023-11-07] MEDS: THIAMINE HCL 200 MG/2 ML VIAL 300 MG IV PUSH (08:49)
[2023-11-07] MEDS: NICOTINE (*PBKC) 14 MG PATCH 1 PATCH TRANSDERM (08:58)
--- NOTE | 2023-11-07 12:04 | PM.IMPN ---
Progress Note: A&P Assessment and Plan (1) UTI (urinary tract infection): Code(s): N39.0 - Urinary tract infection, site not specified Status: Acute Assessment and Plan: UA suspicious for UTI Rocephin started on 10/31 Urine culture positive for Klebsiella pansensitive. Patient transition to p.o. antibiotics of Augmentin on 11/01 11/03 Antibiotics transition to Unasyn due to patient unable to swallow pills. 11/04 Antibiotics transitioned back to PO after Dobbhoff was placed (2) Anorexia: Code(s): R63.0 - Anorexia Status: Acute Assessment and Plan: Start on Megestrol, Ensure ice cream, vitamin supplementation and Cymbalta Concern for psychiatric component Rule out all structural causes of patients weight loss EGD with no acute abnormalities Patient unable to tolerate eggs for Gastric emptying scan Psychiatric consult and diagnosed patient with unspecified eating disorder. Labs: b12 (WNL), folate (WNL), Vit D, TSH (WNL), RPR (neg), HIV (neg) --> (as well as comprehensive neurologic workup) 11/03 Dobbhoff placed Working with care coordination in regards with pricing for patients tube feeds. 11/06 plan on PEG placement tomorrow. (3) Severe protein-calorie malnutrition: Code(s): E43 - Unspecified severe protein-calorie malnutrition Status: Acute Assessment and Plan: Patient reports difficulty swallowing GI consulted and appreciate recommendations. High-protein Ensure with each meal Severe electrolyte imbalance on admission -> resolved. Started on folic acid, multivitamin, thiamine EGD did not show any abnormalities. Patient refused small bowel follow-through due to unable to eat the aches Spoke with GI will plan on holding off on feeding tube placement until care coordination can confirm if patient can afford tube feeds as an outpatient. (4) Hypokalemia: Code(s): E87.6 - Hypokalemia Status: Acute Assessment and Plan: Replace as necessary. Likely hypokalemic due to malnutrition. (5) Paresthesia of both lower extremities: Code(s): R20.2 - Paresthesia of skin Status: Acute Assessment and Plan: Neurology consulted. BLE worsening No GBS her previous admission Previous admission refused LP has agreed to this admission ordered: full LP work up -- culture/gram stain, HSV, Lyme LP with clear colorless CSF fluid, 0 RBCs, 0 total nucleated cells, 59 glucose and 20 protein Was suppose to follow-up with neurology O/P but did not Patient to follow-up with neurology for nerve conduction test. This is been scheduled as an outpatient. Will start patient on Cymbalta currently on no medications PT/OT for evaluation (6) Pain in both lower extremities: Code(s): M79.604 - Pain in right leg; M79.605 - Pain in left leg Status: Acute Assessment and Plan: See above. Analgesics as needed. (7) Neuropathy: Code(s): G62.9 - Polyneuropathy, unspecified Status: Acute Assessment and Plan: see above. (8) Dehydration: Code(s): E86.0 - Dehydration Status: Resolved Assessment and Plan: Resolved (9) Cannabis abuse: Code(s): F12.10 - Cannabis abuse, uncomplicated Status: Acute Assessment and Plan: Drug screen positive Encouraged cessation Plan Subjective Date/time seen: 11/07/23 12:04 Interval history: Care coordination helping with pricing for OP feeds. Once this is worked out, patient will get PEG placed by GI. She is tolerating feeds well and has no complaints at this time. Labs have remained. Stable. Exam Narrative: GENERAL: Comfortable, no acute distress , extremely thin HENMT: moist mucous membranes, poor dentition, lanugo EYES: EOM intact b/l NECK: no lymphadenopathy RESPIRATORY: clear to auscultation, no increased respiratory effort CARDIO: Regular rate and rhythm GI:concave
--- NOTE | 2023-11-07 12:04 | P.PNIM_ITS ---
Progress Note: A&P Assessment and Plan (1) UTI (urinary tract infection): Code(s): N39.0 - Urinary tract infection, site not specified Status: Acute Assessment and Plan: UA suspicious for UTI * Rocephin started on 10/31 * Urine culture positive for Klebsiella pansensitive. * Patient transition to p.o. antibiotics of Augmentin on 11/01 * 11/03 Antibiotics transition to Unasyn due to patient unable to swallow pills. * 11/04 Antibiotics transitioned back to PO after Dobbhoff was placed (2) Anorexia: Code(s): R63.0 - Anorexia Status: Acute Assessment and Plan: Start on Megestrol, Ensure ice cream, vitamin supplementation and Cymbalta * Concern for psychiatric component * Rule out all structural causes of patients weight loss * EGD with no acute abnormalities * Patient unable to tolerate eggs for Gastric emptying scan * Psychiatric consult and diagnosed patient with unspecified eating disorder. * Labs: b12 (WNL), folate (WNL), Vit D, TSH (WNL), RPR (neg), HIV (neg) --> (as well as comprehensive neurologic workup) * 11/03 Dobbhoff placed * Working with care coordination in regards with pricing for patients tube feeds. * 11/06 plan on PEG placement tomorrow. (3) Severe protein-calorie malnutrition: Code(s): E43 - Unspecified severe protein-calorie malnutrition Status: Acute Assessment and Plan: * Patient reports difficulty swallowing * GI consulted and appreciate recommendations. * High-protein Ensure with each meal * Severe electrolyte imbalance on admission -> resolved. * Started on folic acid, multivitamin, thiamine * EGD did not show any abnormalities. * Patient refused small bowel follow-through due to unable to eat the aches * Spoke with GI will plan on holding off on feeding tube placement until care coordination can confirm if patient can afford tube feeds as an outpatient. (4) Hypokalemia: Code(s): E87.6 - Hypokalemia Status: Acute Assessment and Plan: Replace as necessary. Likely hypokalemic due to malnutrition. (5) Paresthesia of both lower extremities: Code(s): R20.2 - Paresthesia of skin Status: Acute Assessment and Plan: * Neurology consulted. * BLE worsening * No GBS her previous admission * Previous admission refused LP has agreed to this admission * ordered: full LP work up -- culture/gram stain, HSV, Lyme * LP with clear colorless CSF fluid, 0 RBCs, 0 total nucleated cells, 59 glucose and 20 protein * Was suppose to follow-up with neurology O/P but did not * Patient to follow-up with neurology for nerve conduction test. This is been scheduled as an outpatient. * Will start patient on Cymbalta currently on no medications * PT/OT for evaluation (6) Pain in both lower extremities: Code(s): M79.604 - Pain in right leg; M79.605 - Pain in left leg Status: Acute Assessment and Plan: See above. Analgesics as needed. (7) Neuropathy: Code(s): G62.9 - Polyneuropathy, unspecified Status: Acute Assessment and Plan: see above. (8) Dehydration: Code(s): E86.0 - Dehydration Status: Resolved Assessment and Plan: Resolved (9) Cannabis abuse: Code(s): F12.10 - Cannabis abuse, uncomplicated Status: Acute Assessment and Plan: Drug screen positive * Encouraged cessation Plan Subjective Date/time seen: 11/07/23 12:0
[2023-11-07 12:34] LABS: Vitamin B6 7.3 ng/mL (2.1-21.7)
[2023-11-07 14:00] VITALS: BP 105/80; PULSE 80; RESP 18; TEMP 36.7; O2SAT 91
--- NOTE | 2023-11-07 16:52 | WPDGIPROGNO ---
Progress Note: A&P Assessment and Plan (1) Anorexia: Code(s): R63.0 - Anorexia Status: Acute Assessment and Plan: started on enteral nutrition by DHT and tolerating finally heard back from insurance and they will cover cost of feeding, we will place G-tube tomorrow. Patient is agreeable. psychiatry evaluated patient neurology also on board (2) Nausea: Code(s): R11.0 - Nausea Status: Acute Assessment and Plan: chronic she could not complete GES (3) Severe protein-calorie malnutrition: Code(s): E43 - Unspecified severe protein-calorie malnutrition Status: Acute Assessment and Plan: nutrition support (4) Paresthesia of both lower extremities: Code(s): R20.2 - Paresthesia of skin Status: Acute Subjective Date/time seen: 11/07/23 16:52 Interval history: tolerating tube feeding by DHT Review of Systems Review of Systems: All systems reviewed & are unremarkable except as noted in HPI and below Exam Const: General: no acute distress Other: cachectic HENMT: Other: DHT in place Eyes: Sclera: sclerae normal Neck: Neck: supple Chest: Chest palpation & inspection: normal inspection of the chest Resp: Effort & Inspection: normal respiratory effort Auscultation: clear to auscultation bilaterally Cardio: Rate: regular rate Rhythm: regular rhythm GI: GI Palp: No abdominal tenderness and Yes Soft to palpation Auscultation: normal bowel sounds : General: Yes bladder normal to palpation Skin: General skin exam: normal color Neuro: Speech: normal speech Other: decrease muscle mass Extrem: General: normal to inspection and no edema Psych: Affect: Anxious affect present Objective Data Vital Signs Vital Signs: Vital Signs - 24 hr 11/06/23 22:00 11/06/23 20:00 11/07/23 05:49 Temperature 96.7 F L 97.8 F Pulse Rate 101 H 87 Respiratory Rate 24 H 12 Blood Pressure 127/92 H 99/74 L Pulse Oximetry 100 100 Oxygen Delivery Room Air 11/07/23 08:00 11/07/23 14:00 Temperature 98.1 F Pulse Rate 80 Respiratory Rate 18 Blood Pressure 105/80 Pulse Oximetry 91 Oxygen Delivery Room Air Intake/Output Intake/Output: Intake & Output 11/04/23 11/05/23 11/06/23 11/07/23 23:59 23:59 23:59 23:59 Intake Total 741 120 8144 237 Balance 078 775 0563 237 Meds/Results Medications: Active Medications Generic Name Dose Route Start Last Admin Trade Name Dirkq PRN Reason Stop Dose Admin Acetaminophen 650 mg 10/31/23 20:39 11/03/23 13:18 Acetaminophen 325 Mg Tablet PO 650 mg Q4H PRN Administration Mild Pain (1-3) or Fever Hydrocodone Bitart/Acetaminophen 1 tab 11/01/23 14:21 11/07/23 13:42 Hydrocodone/Acetaminophen (*Crx) 5-325 Mg Tablet PO 1 tab Q6H PRN Administration Pain Rated 4-6 Amoxicillin/Clavulanate Potassium 1 tablet 11/05/23 18:00 11/07/23 06:14 Amoxicillin/Clavulanate K 875-125 Mg Tab PO 11/08/23 23:00 1 tablet Q12H JU Administration Duloxetine HCl 30 mg 11/01/23 09:00 11/07/23 08:35 Duloxetine Hcl 30 Mg Capsule.Dr PO 30 mg QAM JU Administration Folic Acid 1 mg 11/01/23 09:00 11/07/23 08:36 Folic Acid 1 Mg Tablet PO 1 mg DAILY JU Administration Cefazolin Sodium 1 gm in 50 mls @ 100 mls/hr 11/08/23 13:00 Ancef 1 Gm/Ns 50 Ml IVPB 11/08/23 13:29 ONCE ONE Ketorolac Tromethamine 30 mg 11/04/23 13:43 11/07/23 06:19 Ketorolac 30 Mg/Ml Vial (*Bkc) IV PUSH 30 mg Q6H PRN Administration Pain Rated 4-6 Megestrol Acetate 20 mg 11/04/23 09:00 11/07/23 08:36 Megestrol Acetate (*Chemo) 20 Mg Tablet PO 20 mg QAM JU Administration Mirabegron 50 mg 11/01/23 09:00 11/07/23 08:36 Mirabegron 50 Mg Er Tablet PO 50 mg DAILY JU Administration Multivitamins Therapeutic 1 tablet 11/01/23 09:00 11/07/23 08:36 Multivitamins Therapeutic Tab (*Bkc) PO 1 tablet QAM JU Administra
[2023-11-07 17:37] LABS: Coccidioides Ab to F Ag (IgG) NEGATIVE; Coccidioides Ab to TP Ag (IgM) NEGATIVE
[2023-11-07 20:25] VITALS: BP 107/71; PULSE 96; RESP 16; TEMP 37.2; O2SAT 96
[2023-11-08] VITALS (9 sets, daily range): BP systolic 96–122; BP diastolic 63–85; PULSE 57–97; RESP 16–23; TEMP 36.4–37.2; O2SAT 92–100
[2023-11-08] MEDS: KETOROLAC 30 MG/ML VIAL (*BKC) IV PUSH (04:02)
[2023-11-08] MEDS: HYDROcodone/acetaminophen (*CRX) 5-325 MG TABLET 1 TAB PO ×3 (05:41→19:49)
[2023-11-08 07:01] LABS: Hematocrit 35.2 % (37.0-47.0); Hemoglobin 11.7 g/dL (12.0-15.0); Mean Corpuscular HGB Conc 33.2 g/dl (32-36); Mean Corpuscular Hemoglobin 38.6 pg (26-34); Mean Corpuscular Volume 116.2 fl (80-100); Mean Platelet Volume 10.8 fl (7.4-10.4); Platelet Count Result 187 k/mm3 (150-375); Red Blood Count 3.03 M/mm3 (4.2-5.4); Red Cell Distribution Width 13.7 % (11.5-14.5); White Blood Count 3.3 K/mm3 (4.5-10.0)
[2023-11-08 07:06] LABS: Alanine Aminotransferase 22 U/L (6-35); Albumin Level 2.9 g/dL (3.5-5.1); Alkaline Phosphatase 68 U/L (38-126); Anion Gap 2 mmol/L (4-12); Aspartate Amino Transferase 35 U/L (14-36); Bilirubin,Total 0.5 mg/dL (0.2-1.3); Blood Urea Nitrogen 16 mg/dL (7-17); Calcium 8.8 mg/dL (8.4-10.2); Carbon Dioxide 26 mmol/L (22-30); Chloride 104 mmol/L (98-107); Estimated CRCL calculation 131 ml/min; Estimated Glomerular Filt Rate > 60; Glucose 88 mg/dL (65-110); Magnesium 1.6 mg/dL (1.6-2.3); Phosphorus 3.8 mg/dL (2.5-4.5); Potassium 3.9 mmol/L (3.4-5.0); Sodium 132 mmol/L (137-145)
[2023-11-08] MEDS: MAGNESIUM SULF 2 GM/WATER 50ML 2 GM/50 ML BAG IVPB (08:32)
[2023-11-08] MEDS: NICOTINE (*PBKC) 14 MG PATCH 1 PATCH TRANSDERM (08:32)
[2023-11-08] MEDS: LACTATED RINGERS 1,000 ML 150 ML IV CONT (10:58)
[2023-11-08] MEDS: ceFAZolin 1 GM/NS 50 ML 1 GM/50 ML BAG IVPB (10:59)
--- NOTE | 2023-11-08 11:06 | PCNFU ---
Nutrition Follow-Up Complete: Severe protein calorie malnutrition related to inadequate energy intake due to reduced appetite as evidenced by pt report, a -33% wt loss x 4 months, poor po intake greater than 1 month, and NFPE findings for moderate subcutaneous fat loss (cheeks) and moderate muscle wasting (temples) severe muscle wasting (clavicle). Goal:PO intake 50% or greater of meals and supplements Pt is currently NPO, has tube feeding for nutrition support. New goal: Meet estimated needs via alternative nutrition support Pt current nutrition is Jevity 1.5 @ 50ml/hr. Nutrition recommendation: continue with current plan of care Last recorded weight is 39.7 kg. Bowel Motility: +BM 11/07 Labs Reviewed: Hgb:11.7, HCT:35.2, Alb:2.9, NA:132, Cr:0.3 Meds Noted: folic acid, zofran, protonix, thiamin Skin: WNL Additional Notes: Pt is currently NPO, dobhoff has been placed and pt is receiving tube feedings. Jevity 1.5 @ 50ml/hr with 100ml flush q 4 hrs, providing 1650 kcal, 70 g protein, 836 ml free water, total 1436 ml free water with flushes. Pt is tolerating well, labs stable. Agree with orders. Monitor intake, wt, labs. Follow up every Tuesday and Tuesday.
--- NOTE | 2023-11-08 11:24 | WPDANESEPPF ---
Anes - Initial Pre Proc Eval Procedure: Operation Date: 11/02/23 14:00 Proposed Procedures p Esophagogastroduodenoscopy - Tj Dorantes MD Operation Date: 11/08/23 14:30 Proposed Procedures p Percutaneous Endoscopic Gastrostomy Placement - Tj Dorantes MD Date/Time: 11/08/23 11:24 Surgeon: Tri Mckeon MD Pre Op Diagnosis: Severe Malnutrition,Hypokalemia,BLE Pain Patient Data Age: 33 Gender: F Height: 1.55 m Weight: 39.7 kg Last Vital Signs Temp 97.6 F 11/08/23 11:01 Pulse 97 11/08/23 11:01 Resp 18 11/08/23 11:01 BP 108/80 11/08/23 11:01 Pulse Ox 100 11/08/23 11:01 O2 Del Method Room Air 11/08/23 11:01 Allergies Allergy/AdvReac Type Severity Reaction Status Date / Time latex Allergy Rash Verified 11/08/23 10:57 Home Medications Medication Instructions Recorded Confirmed Type No Home Medications 06/21/23 11/05/23 History Laboratory Tests 11/01/23 11/02/23 11/03/23 12:35 05:47 22:47 WBC RBC Hgb Hct MCV MCH MCHC RDW Plt Count MPV Sodium Potassium Chloride Carbon Dioxide Anion Gap BUN Creatinine Estim Creat Clear Calc Estimated GFR Glucose Calcium Phosphorus Magnesium Total Bilirubin AST ALT Alkaline Phosphatase Total Protein Albumin Vitamin B6 7.3 ng/mL (2.1-21.7) KATEY Screen Negative (NEGATIVE) Coccidioides IgG (ID) Negative Coccidioides IgM (ID) Negative 11/08/23 06:38 WBC 3.3 L K/mm3 (4.5-10.0) RBC 3.03 L M/mm3 (4.2-5.4) Hgb 11.7 L g/dL (12.0-15.0) Hct 35.2 L % (37.0-47.0) MCV 116.2 H fl (80-100) MCH 38.6 H pg (26-34) MCHC 33.2 g/dl (32-36) RDW 13.7 % (11.5-14.5) Plt Count 187 k/mm3 (150-375) MPV 10.8 H fl (7.4-10.4) Sodium 132 L mmol/L (137-145) Potassium 3.9 mmol/L (3.4-5.0) Chloride 104 mmol/L (98-107) Carbon Dioxide 26 mmol/L (22-30) Anion Gap 2 L mmol/L (4-12) BUN 16 mg/dL (7-17) Creatinine 0.30 L mg/dL (0.7-1.0) Estim Creat Clear Calc 131 ml/min Estimated GFR > 60 (59 - ) Glucose 88 mg/dL (65-110) Calcium 8.8 mg/dL (8.4-10.2) Phosphorus 3.8 mg/dL (2.5-4.5) Magnesium 1.6 mg/dL (1.6-2.3) Total Bilirubin 0.5 mg/dL (0.2-1.3) AST 35 U/L (14-36) ALT 22 U/L (6-35) Alkaline Phosphatase 68 U/L (38-126) Total Protein 6.0 L g/dL (6.3-8.2) Albumin 2.9 L g/dL (3.5-5.1) Vitamin B6 KATEY Screen Coccidioides IgG (ID) Coccidioides IgM (ID) Patient hx anesthesia problems: none Family hx anesthesia problems: none Results Review: All pre-operative results and documents have been reviewed as part of the pre-operative evaluation. [facility] Past Medical History Medical History Anorexia Dysphagia Mitral valve prolapse Nausea Surgical History Surgical History No history of previous surgery Family History Family History Mother Heart attack Grandparent Cancer Social History Social History Social History: Surrogate medical decision maker: Jorge Luis Centeno, significant other. Code status: Full code. Smoking packs per day: 0.5 Smoking cigarettes per day: 10.0 Years smoked: 16 Smoking pack-years: 8.00 Smoking status: Current every day smoker Tobacco type: cigarettes Alcohol intake: never Alcohol use d
--- NOTE | 2023-11-08 11:59 | PCDIET ---
Pt is getting a PEG placed today. Request for bolus feeding conversion for home use. Bolus conversion is 185ml of Jevity 1.5, 6 times a day with 100ml water flush after. This will provide 1665kcals, 71g protein, 1443ml total per day. This is sufficient to meet pt's estimated needs. Should pt not be able to get the specific tube feeding formula ordered or equivalent, recommend to use Ensure Enlive. To provide the same calories: Recommend 4 cans total of Ensure Enlive (350kcals, 20g protein per can) with 100ml flush q 4 hrs, to provide 1400kcals, 80g protein, 1320ml fluid per day
--- NOTE | 2023-11-08 12:33 | P.PNIM_ITS ---
Progress Note: A&P Assessment and Plan (1) Anorexia: Code(s): R63.0 - Anorexia Status: Acute Assessment and Plan: Start on Megestrol, Ensure ice cream, vitamin supplementation and Cymbalta * Concern for psychiatric component * Rule out all structural causes of patients weight loss * EGD with no acute abnormalities * Patient unable to tolerate eggs for Gastric emptying scan * Psychiatric consult and diagnosed patient with unspecified eating disorder. * Labs: b12 (WNL), folate (WNL), Vit D (pending), TSH (WNL), RPR (neg), HIV (neg) --> (as well as comprehensive neurologic workup) * 11/03 Dobbhoff placed. * Working with care coordination in regards with pricing for patients tube feeds. (11/03-11/07) * Patient reached her goal continuous rate on tube feeds * 11/07 PEG placement today. Plan to initiate bolus feeds after PEG placement. (2) Severe protein-calorie malnutrition: Code(s): E43 - Unspecified severe protein-calorie malnutrition Status: Acute Assessment and Plan: * Patient reports difficulty swallowing * GI consulted and appreciate recommendations. * Severe electrolyte imbalance on admission -> resolved. * Started on folic acid, multivitamin, thiamine * EGD did not show any abnormalities. * Patient refused small bowel follow-through due to unable to eat the aches See above (3) UTI (urinary tract infection): Code(s): N39.0 - Urinary tract infection, site not specified Status: Acute Assessment and Plan: UA suspicious for UTI * Rocephin started on 10/31 * Urine culture positive for Klebsiella pansensitive. * Patient transition to p.o. antibiotics of Augmentin on 11/01 * 11/03 Antibiotics transition to Unasyn due to patient unable to swallow pills. * 11/04 Antibiotics transitioned back to PO after Dobbhoff was placed * 11/07 Antibiotics completed at the end of day. (4) Hypokalemia: Code(s): E87.6 - Hypokalemia Status: Resolved Assessment and Plan: Replace as necessary. Likely hypokalemic due to malnutrition. Resolved. (5) Paresthesia of both lower extremities: Code(s): R20.2 - Paresthesia of skin Status: Acute Assessment and Plan: * Neurology consulted. * BLE worsening * No GBS her previous admission * Previous admission refused LP has agreed to this admission * ordered: full LP work up -- culture/gram stain, serology negative * LP with clear colorless CSF fluid, 0 RBCs, 0 total nucleated cells, 59 glucose and 20 protein * Was suppose to follow-up with neurology O/P but did not * Patient to follow-up with neurology for nerve conduction test. This is been scheduled as an outpatient. * Will start patient on Cymbalta currently on no medications * PT/OT for evaluation * Neurology scheduled patient for nerve conduction study on 11/15/23 (6) Pain in both lower extremities: Code(s): M79.604 - Pain in right leg; M79.605 - Pain in left leg Status: Acute Assessment and Plan: See above. Analgesics as needed. (7) Neuropathy: Code(s): G62.9 - Polyneuropathy, unspecified Status: Acute Assessment and Plan: see above. (8) Dehydration: Code(s): E86.0 - Dehydration Status: Resolved Assessment and Plan: Resolved (9) Cannabis abuse: Code(s): F12.10 - Cannabis abuse, uncomplicated Status: Acute Assessment and Plan: Drug screen positive * Encouraged cessation Plan
--- NOTE | 2023-11-08 12:33 | PM.IMPN ---
Progress Note: A&P Assessment and Plan (1) Anorexia: Code(s): R63.0 - Anorexia Status: Acute Assessment and Plan: Start on Megestrol, Ensure ice cream, vitamin supplementation and Cymbalta Concern for psychiatric component Rule out all structural causes of patients weight loss EGD with no acute abnormalities Patient unable to tolerate eggs for Gastric emptying scan Psychiatric consult and diagnosed patient with unspecified eating disorder. Labs: b12 (WNL), folate (WNL), Vit D (pending), TSH (WNL), RPR (neg), HIV (neg) --> (as well as comprehensive neurologic workup) 11/03 Dobbhoff placed. Working with care coordination in regards with pricing for patients tube feeds. (11/03-11/07) Patient reached her goal continuous rate on tube feeds 11/07 PEG placement today. Plan to initiate bolus feeds after PEG placement. (2) Severe protein-calorie malnutrition: Code(s): E43 - Unspecified severe protein-calorie malnutrition Status: Acute Assessment and Plan: Patient reports difficulty swallowing GI consulted and appreciate recommendations. Severe electrolyte imbalance on admission -> resolved. Started on folic acid, multivitamin, thiamine EGD did not show any abnormalities. Patient refused small bowel follow-through due to unable to eat the aches See above (3) UTI (urinary tract infection): Code(s): N39.0 - Urinary tract infection, site not specified Status: Acute Assessment and Plan: UA suspicious for UTI Rocephin started on 10/31 Urine culture positive for Klebsiella pansensitive. Patient transition to p.o. antibiotics of Augmentin on 11/01 11/03 Antibiotics transition to Unasyn due to patient unable to swallow pills. 11/04 Antibiotics transitioned back to PO after Dobbhoff was placed 11/07 Antibiotics completed at the end of day. (4) Hypokalemia: Code(s): E87.6 - Hypokalemia Status: Resolved Assessment and Plan: Replace as necessary. Likely hypokalemic due to malnutrition. Resolved. (5) Paresthesia of both lower extremities: Code(s): R20.2 - Paresthesia of skin Status: Acute Assessment and Plan: Neurology consulted. BLE worsening No GBS her previous admission Previous admission refused LP has agreed to this admission ordered: full LP work up -- culture/gram stain, serology negative LP with clear colorless CSF fluid, 0 RBCs, 0 total nucleated cells, 59 glucose and 20 protein Was suppose to follow-up with neurology O/P but did not Patient to follow-up with neurology for nerve conduction test. This is been scheduled as an outpatient. Will start patient on Cymbalta currently on no medications PT/OT for evaluation Neurology scheduled patient for nerve conduction study on 11/15/23 (6) Pain in both lower extremities: Code(s): M79.604 - Pain in right leg; M79.605 - Pain in left leg Status: Acute Assessment and Plan: See above. Analgesics as needed. (7) Neuropathy: Code(s): G62.9 - Polyneuropathy, unspecified Status: Acute Assessment and Plan: see above. (8) Dehydration: Code(s): E86.0 - Dehydration Status: Resolved Assessment and Plan: Resolved (9) Cannabis abuse: Code(s): F12.10 - Cannabis abuse, uncomplicated Status: Acute Assessment and Plan: Drug screen positive Encouraged cessation Plan Subjective Date/time seen: 11/08/23 12:33 Interval history: Plan to get PEG tube placed today. I have discussed with both care coordination and dietitian patient's care plan. The goal is to transition patient over to bolus feedings. See registered dietitian note regarding this. Care coordination double checking on financial situation cost of formula cm. The backup plan for this will be ensure enlive bolus feeds. This is also stated and registered dietitian's note the conversion
--- NOTE | 2023-11-08 13:00 | PC.NURSE ---
Pt returned to room post per tube placed. Offers no complaints. Peg tube can be used in 6 hours per orders.
[2023-11-08] MEDS: MORPHINE SULFATE (*CRX) 2 MG/ML INJ IV PUSH ×2 (16:34→22:40)
[2023-11-08] MEDS: AMOXICILLIN/CLAVULANATE K 875-125 MG TAB 1 TABLET PO (18:38)
[2023-11-09] MEDS: HYDROcodone/acetaminophen (*CRX) 5-325 MG TABLET 1 TAB PO ×2 (01:58→08:02)
[2023-11-09] MEDS: MORPHINE SULFATE (*CRX) 2 MG/ML INJ IV PUSH ×2 (05:56→10:49)
[2023-11-09 06:00] VITALS: BP 110/83; PULSE 70; RESP 12; TEMP 36.4; O2SAT 100
[2023-11-09 06:36] LABS: Hematocrit 32.6 % (37.0-47.0); Hemoglobin 10.9 g/dL (12.0-15.0); Mean Corpuscular HGB Conc 33.4 g/dl (32-36); Mean Corpuscular Hemoglobin 39.6 pg (26-34); Mean Corpuscular Volume 118.5 fl (80-100); Platelet Count Result 168 k/mm3 (150-375); Red Blood Count 2.75 M/mm3 (4.2-5.4); Red Cell Distribution Width 13.8 % (11.5-14.5)
[2023-11-09 06:46] LABS: Alanine Aminotransferase 18 U/L (6-35); Albumin Level 2.7 g/dL (3.5-5.1); Alkaline Phosphatase 67 U/L (38-126); Anion Gap 5 mmol/L (4-12); Aspartate Amino Transferase 32 U/L (14-36); Bilirubin,Total 0.4 mg/dL (0.2-1.3); Blood Urea Nitrogen 20 mg/dL (7-17); Calcium 8.4 mg/dL (8.4-10.2); Carbon Dioxide 24 mmol/L (22-30); Chloride 105 mmol/L (98-107); Estimated CRCL calculation 103 ml/min; Estimated Glomerular Filt Rate > 60; Glucose 94 mg/dL (65-110); Magnesium 2.1 mg/dL (1.6-2.3); Phosphorus 4.2 mg/dL (2.5-4.5); Potassium 3.6 mmol/L (3.4-5.0); Sodium 134 mmol/L (137-145)
--- NOTE | 2023-11-09 07:23 | WPDANESPN ---
Anes - Prog Note Post-Op Date/Time: 11/09/23 07:23 Cardiovascular status: normal Respiratory status: normal Airway patency: baseline Mental status: baseline Post-Op hydration status: normal Vital Signs: Last Vital Signs Temp 97.6 F 11/09/23 06:00 Pulse 70 11/09/23 06:00 Resp 12 11/09/23 06:00 BP 110/83 11/09/23 06:00 Pulse Ox 100 11/09/23 06:00 O2 Del Method Room Air 11/08/23 20:00 Pain Score (VAS): 0/10 I/O: Intake & Output 11/08/23 11/08/23 11/09/23 15:59 23:59 07:59 Intake Total 450 0 1920 Balance 450 0 1920 Laboratory Tests 11/09/23 06:03 11/09/23 06:03 11/01/23 11/05/23 11/08/23 15:54 15:26 06:38 WBC RBC Hgb Hct MCV MCH MCHC RDW Plt Count MPV Sodium Potassium Chloride Carbon Dioxide Anion Gap BUN Creatinine Estim Creat Clear Calc Estimated GFR Glucose Calcium Phosphorus Magnesium Total Bilirubin AST ALT Alkaline Phosphatase Total Protein Albumin CSF Lactic Acid TNP Urine Immunofixation Cancelled Cryoglobulin % Pending Cryoglobulin Qualit Pending 11/09/23 06:03 WBC 4.0 L RBC 2.75 L Hgb 10.9 L Hct 32.6 L MCV 118.5 H MCH 39.6 H MCHC 33.4 RDW 13.8 Plt Count 168 MPV 11.0 H Sodium 134 L Potassium 3.6 Chloride 105 Carbon Dioxide 24 Anion Gap 5 BUN 20 H Creatinine 0.40 L Estim Creat Clear Calc 103 Estimated GFR > 60 Glucose 94 Calcium 8.4 Phosphorus 4.2 Magnesium 2.1 Total Bilirubin 0.4 AST 32 ALT 18 Alkaline Phosphatase 67 Total Protein 5.0 L Albumin 2.7 L CSF Lactic Acid Urine Immunofixation Cryoglobulin % Cryoglobulin Qualit Post-procedural complaints: none Patient Feedback: Patient satisfied with anesthetic care.
--- NOTE | 2023-11-09 07:51 | P.PNIM_ITS ---
Progress Note: A&P Assessment and Plan (1) UTI (urinary tract infection): Code(s): N39.0 - Urinary tract infection, site not specified Status: Acute (2) Severe protein-calorie malnutrition: Code(s): E43 - Unspecified severe protein-calorie malnutrition Status: Acute (3) Hypokalemia: Code(s): E87.6 - Hypokalemia Status: Resolved (4) Paresthesia of both lower extremities: Code(s): R20.2 - Paresthesia of skin Status: Acute (5) Pain in both lower extremities: Code(s): M79.604 - Pain in right leg; M79.605 - Pain in left leg Status: Acute (6) Neuropathy: Code(s): G62.9 - Polyneuropathy, unspecified Status: Acute (7) Alkalosis: Code(s): E87.3 - Alkalosis Status: Acute (8) Dehydration: Code(s): E86.0 - Dehydration Status: Resolved (9) Cannabis abuse: Code(s): F12.10 - Cannabis abuse, uncomplicated Status: Acute (10) Anorexia: Code(s): R63.0 - Anorexia Status: Acute (11) Eating disorder, unspecified: Code(s): F50.9 - Eating disorder, unspecified Status: Acute (12) Nausea: Code(s): R11.0 - Nausea Status: Acute (13) Dysphagia: Code(s): R13.10 - Dysphagia, unspecified Status: Acute Plan Severe protein and caloric malnutrition * Patient reports difficulty swallowing * GI consulted * High-protein Ensure with each meal * Severe electrolyte imbalance * Started on folic acid, multivitamin, thiamine * EGD showed no abnormalities * Patient refused small bowel follow-through due to unable to eat the aches Anorexia * Start on Megestrol, Ensure ice cream, vitamin supplementation and Cymbalta * Concern for psychiatric component * Rule out all structural causes of patients weight loss * EGD with no acute abnormalities * Patient unable to tolerate eggs for Gastric emptying scan * Psychiatric consult and diagnosed patient with unspecified eating disorder. * Labs: b12 (WNL), folate (WNL), Vit D (pending), TSH (WNL), RPR (neg), HIV (neg) --> (as well as comprehensive neurologic workup) * 11/03 Dobbhoff placed.? * Working with care coordination in regards with pricing for patients tube feeds. (11/03-11/07) * Patient reached her goal continuous rate on tube feeds * 11/07 PEG placement today. Plan to initiate bolus feeds after PEG placement. Neuropathy * BLE worsening * No GBS her previous admission * Previous admission refused LP has agreed to this admission * * LP with clear colorless CSF fluid, 0 RBCs, 0 total nucleated cells, 59 glucose and 20 protei * ordered: GBS -- check glucose, protein, cell count, culture/gram stain, HSV, Lyme * was suppose to follow-up with neurology O/P but did not * Patient to follow-up with neurology for nerve conduction test * Will start patient on Cymbalta currently on no medications * PT/OT for evaluation * Neurology scheduled patient for nerve conduction study on 11/15/23 UTI-RESOLVED * Urine cultures * Continue IV hydration. * Monitor CBC, CMP watch for sepsis. * Monitor vital signs. * Rocephin pending cultures. Hypokalemia * 2.4 POA * Replenished * Monitor and replenish as needed Cannabis abuse * Drug screen positive * Encouraged cessation Code status: Full code per patient DVT prophylaxis: Scd's Stress ulcer prophylaxis: Protonix 40 daily PT/OT notes: PT/OT Pending Disposition:
--- NOTE | 2023-11-09 07:51 | PM.IMPN ---
Progress Note: A&P Assessment and Plan (1) UTI (urinary tract infection): Code(s): N39.0 - Urinary tract infection, site not specified Status: Acute (2) Severe protein-calorie malnutrition: Code(s): E43 - Unspecified severe protein-calorie malnutrition Status: Acute (3) Hypokalemia: Code(s): E87.6 - Hypokalemia Status: Resolved (4) Paresthesia of both lower extremities: Code(s): R20.2 - Paresthesia of skin Status: Acute (5) Pain in both lower extremities: Code(s): M79.604 - Pain in right leg; M79.605 - Pain in left leg Status: Acute (6) Neuropathy: Code(s): G62.9 - Polyneuropathy, unspecified Status: Acute (7) Alkalosis: Code(s): E87.3 - Alkalosis Status: Acute (8) Dehydration: Code(s): E86.0 - Dehydration Status: Resolved (9) Cannabis abuse: Code(s): F12.10 - Cannabis abuse, uncomplicated Status: Acute (10) Anorexia: Code(s): R63.0 - Anorexia Status: Acute (11) Eating disorder, unspecified: Code(s): F50.9 - Eating disorder, unspecified Status: Acute (12) Nausea: Code(s): R11.0 - Nausea Status: Acute (13) Dysphagia: Code(s): R13.10 - Dysphagia, unspecified Status: Acute Plan Severe protein and caloric malnutrition Patient reports difficulty swallowing GI consulted High-protein Ensure with each meal Severe electrolyte imbalance Started on folic acid, multivitamin, thiamine EGD showed no abnormalities Patient refused small bowel follow-through due to unable to eat the aches Anorexia Start on Megestrol, Ensure ice cream, vitamin supplementation and Cymbalta Concern for psychiatric component Rule out all structural causes of patients weight loss EGD with no acute abnormalities Patient unable to tolerate eggs for Gastric emptying scan Psychiatric consult and diagnosed patient with unspecified eating disorder. Labs: b12 (WNL), folate (WNL), Vit D (pending), TSH (WNL), RPR (neg), HIV (neg) --> (as well as comprehensive neurologic workup) 11/03 Gabriella nunes.? Working with care coordination in regards with pricing for patients tube feeds. (11/03-11/07) Patient reached her goal continuous rate on tube feeds 11/07 PEG placement today. Plan to initiate bolus feeds after PEG placement. Neuropathy BLE worsening No GBS her previous admission Previous admission refused LP has agreed to this admission LP with clear colorless CSF fluid, 0 RBCs, 0 total nucleated cells, 59 glucose and 20 protei ordered: GBS -- check glucose, protein, cell count, culture/gram stain, HSV, Lyme was suppose to follow-up with neurology O/P but did not Patient to follow-up with neurology for nerve conduction test Will start patient on Cymbalta currently on no medications PT/OT for evaluation Neurology scheduled patient for nerve conduction study on 11/15/23 UTI-RESOLVED Urine cultures Continue IV hydration. Monitor CBC, CMP watch for sepsis. Monitor vital signs. Rocephin pending cultures. Hypokalemia 2.4 POA Replenished Monitor and replenish as needed Cannabis abuse Drug screen positive Encouraged cessation Code status: Full code per patient DVT prophylaxis: Scd's Stress ulcer prophylaxis: Protonix 40 daily PT/OT notes: PT/OT Pending Disposition: Time Spent With Patient Time with patient: 15 - 25 minutes Subjective Date/time seen: 11/09/23 07:51 Interval history: Admission: Medical Record A 33-year-old female with past medical history significant for mitral valve prolapse, patient presents to the emergency room due to complaints of muscle cramps, bilateral lower extremity burning pain from her knees to her toes, poor appetite, poor per orally intake, weight loss.? Preliminary workup was significant for potassium 2.4 chloride 88 sodium 128,? MCV 109. patient is been admitted for [facility]
[2023-11-09] MEDS: MULTIVITAMINS THERAPEUTIC TAB (*BKC) 1 TABLET PO (07:59)
[2023-11-09] MEDS: PANTOPRAZOLE 40 MG TABLET PO (07:59)
[2023-11-09] MEDS: DULoxetine HCL 30 MG CAPSULE.DR PO (07:59)
[2023-11-09] MEDS: FOLIC ACID 1 MG TABLET PO (07:59)
[2023-11-09] MEDS: VITAMIN B COMPLEX CAPSULE 1 CAP PO (07:59)
[2023-11-09] MEDS: NICOTINE (*PBKC) 14 MG PATCH 1 PATCH TRANSDERM (07:59)
[2023-11-09] MEDS: MEGESTROL ACETATE (*CHEMO) 20 MG TABLET PO (07:59)
[2023-11-09] MEDS: MIRABEGRON 50 MG ER TABLET PO (07:59)
[2023-11-09] MEDS: THIAMINE HCL 200 MG/2 ML VIAL 300 MG IV PUSH (08:00)
--- NOTE | 2023-11-09 10:13 | PCNFU ---
Nutrition Follow-Up Complete: Severe protein calorie malnutrition related to inadequate energy intake due to reduced appetite as evidenced by pt report, a -33% wt loss x 4 months, poor po intake greater than 1 month, and NFPE findings for moderate subcutaneous fat loss (cheeks) and moderate muscle wasting (temples) severe muscle wasting (clavicle). PO intake 50% or greater of meals and supplements Goal: Pt current nutrition is PO intake as tolerated. BOlus Jevity 1.5, 185 ml q 4 hours. Flush 100 ml water q 4 hours. Nutrition recommendation: Continue with same tube feeding orders to build tolerance. Hold if patient has vomiting. May want to consider pro-motility agent such Reglan before tube feeds to improve tolerance. Last recorded weight is 39.8 kg. 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 Pt tells me the nurse put the tube feeding in really fast and now she has abdominal pain. RN and student agree the tube feeding was put in slowly through the syringe. At the time of my visit pt was complaining of abdominal pain. Says she has been having loose diarrhea, +5 BMs recorded today. Pt says she is having bowel incontinence. Monitor intake, wt, labs. Follow up in 5 days.
[2023-11-09] MEDS: ONDANSETRON INJ 4 MG/2 ML VIAL IV PUSH (10:49)
--- NOTE | 2023-11-09 12:27 | P.DS_ITS ---
DS: Admitting Diagnosis Discharge Date 11/09/2023 Admitting Diagnosis Anorexia/Severe protein and caloric malnutrition/neuropathy/MDD/anxiety DS: Discharge Diagnosis Discharge Diagnosis (1) UTI (urinary tract infection): Code(s): N39.0 - Urinary tract infection, site not specified Status: Acute (2) Severe protein-calorie malnutrition: Code(s): E43 - Unspecified severe protein-calorie malnutrition Status: Acute (3) Hypokalemia: Code(s): E87.6 - Hypokalemia Status: Resolved (4) Paresthesia of both lower extremities: Code(s): R20.2 - Paresthesia of skin Status: Acute (5) Pain in both lower extremities: Code(s): M79.604 - Pain in right leg; M79.605 - Pain in left leg Status: Acute (6) Neuropathy: Code(s): G62.9 - Polyneuropathy, unspecified Status: Acute (7) Alkalosis: Code(s): E87.3 - Alkalosis Status: Acute (8) Dehydration: Code(s): E86.0 - Dehydration Status: Resolved (9) Cannabis abuse: Code(s): F12.10 - Cannabis abuse, uncomplicated Status: Acute (10) Anorexia: Code(s): R63.0 - Anorexia Status: Acute (11) Eating disorder, unspecified: Code(s): F50.9 - Eating disorder, unspecified Status: Acute (12) Nausea: Code(s): R11.0 - Nausea Status: Acute (13) Dysphagia: Code(s): R13.10 - Dysphagia, unspecified Status: Acute Plan Severe protein and caloric malnutrition * Patient reports difficulty swallowing * GI consulted * High-protein Ensure with each meal * Severe electrolyte imbalance * Started on folic acid, multivitamin, thiamine * EGD showed no abnormalities * Patient refused small bowel follow-through due to unable to eat the aches Anorexia * Start on Megestrol, Ensure ice cream, vitamin supplementation and Cymbalta * Concern for psychiatric component * Rule out all structural causes of patients weight loss * EGD with no acute abnormalities * Patient unable to tolerate eggs for Gastric emptying scan * Psychiatric consult and diagnosed patient with unspecified eating disorder. * Labs: b12 (WNL), folate (WNL), Vit D (pending), TSH (WNL), RPR (neg), HIV (neg) --> (as well as comprehensive neurologic workup) * 11/03 Dobbhoff placed.? * Working with care coordination in regards with pricing for patients tube feeds. (11/03-11/07) * Patient reached her goal continuous rate on tube feeds * 11/07 PEG placement today. Plan to initiate bolus feeds after PEG placement. * Tolerated bolus feeds Neuropathy * BLE worsening * No GBS her previous admission * Previous admission refused LP has agreed to this admission * * LP with clear colorless CSF fluid, 0 RBCs, 0 total nucleated cells, 59 glucose and 20 protei * ordered: GBS -- check glucose, protein, cell count, culture/gram stain, HSV, Lyme * was suppose to follow-up with neurology O/P but did not * Patient to follow-up with neurology for nerve conduction test * Will start patient on Cymbalta currently on no medications * PT/OT for evaluation * Neurology scheduled patient for nerve conduction study on 11/15/23 UTI-RESOLVED * Urine cultures * Continue IV hydration. * Monitor CBC, CMP watch for sepsis. * Monitor vital signs. * Rocephin pending cultures. Hypokalemia * 2.4 POA * Replenished * Monitor and replenish as needed Cannabis abuse * Drug screen positive * Encouraged cessation
--- NOTE | 2023-11-09 12:27 | PM.DS ---
DS: Admitting Diagnosis Discharge Date 11/09/2023 Admitting Diagnosis Anorexia/Severe protein and caloric malnutrition/neuropathy/MDD/anxiety DS: Discharge Diagnosis Discharge Diagnosis (1) UTI (urinary tract infection): Code(s): N39.0 - Urinary tract infection, site not specified Status: Acute (2) Severe protein-calorie malnutrition: Code(s): E43 - Unspecified severe protein-calorie malnutrition Status: Acute (3) Hypokalemia: Code(s): E87.6 - Hypokalemia Status: Resolved (4) Paresthesia of both lower extremities: Code(s): R20.2 - Paresthesia of skin Status: Acute (5) Pain in both lower extremities: Code(s): M79.604 - Pain in right leg; M79.605 - Pain in left leg Status: Acute (6) Neuropathy: Code(s): G62.9 - Polyneuropathy, unspecified Status: Acute (7) Alkalosis: Code(s): E87.3 - Alkalosis Status: Acute (8) Dehydration: Code(s): E86.0 - Dehydration Status: Resolved (9) Cannabis abuse: Code(s): F12.10 - Cannabis abuse, uncomplicated Status: Acute (10) Anorexia: Code(s): R63.0 - Anorexia Status: Acute (11) Eating disorder, unspecified: Code(s): F50.9 - Eating disorder, unspecified Status: Acute (12) Nausea: Code(s): R11.0 - Nausea Status: Acute (13) Dysphagia: Code(s): R13.10 - Dysphagia, unspecified Status: Acute Plan Severe protein and caloric malnutrition Patient reports difficulty swallowing GI consulted High-protein Ensure with each meal Severe electrolyte imbalance Started on folic acid, multivitamin, thiamine EGD showed no abnormalities Patient refused small bowel follow-through due to unable to eat the aches Anorexia Start on Megestrol, Ensure ice cream, vitamin supplementation and Cymbalta Concern for psychiatric component Rule out all structural causes of patients weight loss EGD with no acute abnormalities Patient unable to tolerate eggs for Gastric emptying scan Psychiatric consult and diagnosed patient with unspecified eating disorder. Labs: b12 (WNL), folate (WNL), Vit D (pending), TSH (WNL), RPR (neg), HIV (neg) --> (as well as comprehensive neurologic workup) 11/03 Dobbhoff placed.? Working with care coordination in regards with pricing for patients tube feeds. (11/03-11/07) Patient reached her goal continuous rate on tube feeds 11/07 PEG placement today. Plan to initiate bolus feeds after PEG placement. Tolerated bolus feeds Neuropathy BLE worsening No GBS her previous admission Previous admission refused LP has agreed to this admission LP with clear colorless CSF fluid, 0 RBCs, 0 total nucleated cells, 59 glucose and 20 protei ordered: GBS -- check glucose, protein, cell count, culture/gram stain, HSV, Lyme was suppose to follow-up with neurology O/P but did not Patient to follow-up with neurology for nerve conduction test Will start patient on Cymbalta currently on no medications PT/OT for evaluation Neurology scheduled patient for nerve conduction study on 11/15/23 UTI-RESOLVED Urine cultures Continue IV hydration. Monitor CBC, CMP watch for sepsis. Monitor vital signs. Rocephin pending cultures. Hypokalemia 2.4 POA Replenished Monitor and replenish as needed Cannabis abuse Drug screen positive Encouraged cessation Code status: Full code per patient DVT prophylaxis: Scd's Stress ulcer prophylaxis: Protonix 40 daily PT/OT notes: PT/OT Pending Disposition: DS: Summary Hospital Course Reason for hospitalization: Anorexia/Severe protein and caloric malnutrition/neuropathy/MDD/anxiety Hospital Course: Admission: Medical Record A 33-year-old female with past medical history significant for mitral valve prolapse, patient presents to the emergency room due to complaints of muscle cramps, bilateral lower extremity burning pain
--- NOTE | 2023-11-09 14:31 | WPDGIPROGNO ---
Progress Note: A&P Assessment and Plan (1) Anorexia: Code(s): R63.0 - Anorexia Status: Acute Assessment and Plan: s/p g-tube placement, she will continue feeding by slate cutter operator recommendation, she also can eat as pleasure will need follow-up with psychiatry and neurology she is going home today (2) Nausea: Code(s): R11.0 - Nausea Status: Acute Assessment and Plan: chronic she could not complete GES antiemetics prn (3) Severe protein-calorie malnutrition: Code(s): E43 - Unspecified severe protein-calorie malnutrition Status: Acute Assessment and Plan: nutrition support by TF (4) Paresthesia of both lower extremities: Code(s): R20.2 - Paresthesia of skin Status: Acute Subjective Date/time seen: 11/09/23 14:31 Interval history: tolerating feeding by g-tube and also by mouth she is leaving hospital today Review of Systems Review of Systems: All systems reviewed & are unremarkable except as noted in HPI and below Exam Const: General: no acute distress Other: cachectic HENMT: Face/Nose/Sinus: Normal nares present Eyes: Sclera: sclerae normal Neck: Neck: supple Chest: Chest palpation & inspection: normal inspection of the chest Resp: Effort & Inspection: normal respiratory effort Auscultation: clear to auscultation bilaterally Cardio: Rate: regular rate Rhythm: regular rhythm GI: GI Palp: No abdominal tenderness and Yes Soft to palpation Auscultation: normal bowel sounds Other: g-tube in place : General: Yes bladder normal to palpation Skin: General skin exam: normal color Neuro: Speech: normal speech Other: decrease muscle mass Extrem: General: normal to inspection and no edema Psych: Affect: Anxious affect present Objective Data Vital Signs Vital Signs: Vital Signs - 24 hr 11/08/23 21:07 11/08/23 20:00 11/09/23 06:00 Temperature 99.0 F 97.6 F Pulse Rate 95 70 Respiratory Rate 16 12 Blood Pressure 109/80 110/83 Pulse Oximetry 100 100 Oxygen Delivery Room Air 11/09/23 08:00 Temperature Pulse Rate Respiratory Rate Blood Pressure Pulse Oximetry Oxygen Delivery Room Air Intake/Output Intake/Output: Intake & Output 11/06/23 11/07/23 11/08/23 11/09/23 23:59 23:59 23:59 23:59 Intake Total 1125 131 717 1006 Balance 1125 326 364 5321 Meds/Results Medications: Active Medications Generic Name Dose Route Start Last Admin Trade Name Freq PRN Reason Stop Dose Admin Acetaminophen 650 mg 10/31/23 20:39 11/03/23 13:18 Acetaminophen 325 Mg Tablet PO 650 mg Q4H PRN Administration Mild Pain (1-3) or Fever Hydrocodone Bitart/Acetaminophen 1 tab 11/01/23 14:21 11/09/23 08:02 Hydrocodone/Acetaminophen (*Crx) 5-325 Mg Tablet PO 1 tab Q6H PRN Administration Pain Rated 4-6 Duloxetine HCl 30 mg 11/01/23 09:00 11/09/23 07:59 Duloxetine Hcl 30 Mg Capsule. PO 30 mg QAM JU Administration Folic Acid 1 mg 11/01/23 09:00 11/09/23 07:59 Folic Acid 1 Mg Tablet PO 1 mg DAILY JU Administration Megestrol Acetate 20 mg 11/04/23 09:00 11/09/23 07:59 Megestrol Acetate (*Chemo) 20 Mg Tablet PO 20 mg QAM JU Administration Mirabegron 50 mg 11/01/23 09:00 11/09/23 07:59 Mirabegron 50 Mg Er Tablet PO 50 mg DAILY JU Administration Miscellaneous Information 1 each 11/08/23 00:01 Ketorolac Needs To Be Renewed Or It Will Automatically Discontinue. XX 12/08/23 00:00 CLARIFY JU Morphine Sulfate 2 mg 11/08/23 16:16 11/09/23 10:49 Morphine Sulfate (*Crx) 2 Mg/Ml Inj IV PUSH 2 mg Q4H PRN Administration Pain Rated 7-10 Multivitamins Therapeutic 1 tablet 11/01/23 09:00 11/09/23 07:59 Multivitamins Therapeutic Tab (*Bkc) PO 1 tablet QAM JU Administration Nicotine 1 patch 11/01/23 16:55 11/09/23 07:59 Nicotine (*Pbkc) 14 Mg Patch TRANSDERM 1 patch DAILY [facility] Admini
[2023-11-10 13:48] LABS: SS-A <1.0 NEG AI (<1.0 NEG); SS-B <1.0 NEG AI (<1.0 NEG)
[2023-11-11 17:31] LABS: Albumin, CSF 11.3 mg/dL (8.0-42.0); Albumin, Serum 2.8 g/dL (3.6-5.1); IgG Index, CSF 0.52 (<0.70); IgG, CSF 2.2 mg/dL (0.8-7.7); Immunoglobulin G, Serum 1040 mg/dL (600-1640); Myelin Basic Protein, CSF <2.0 mcg/L (<=4.0); Oligoclonal Bands (IgG), CSF Absent (Absent); Synthesis Rate IgG, CSF -2.4 mg/24 h (-9.9-3.3)
[2023-11-12 14:08] LABS: Zinc 51 mcg/dL (60-130)
[2023-11-14 11:43] LABS: Vitamin B1 54 nmol/L (8-30)
[2023-11-15 08:38] LABS: Arsenic, Blood <10 mcg/L (<23); Mercury, Blood <5 mcg/L (<OR=10)
[2023-11-21 12:44] LABS: Collection Sample Blood
== END 2023-11-09 14:30 | disposition home health service (06) | DRG 48 ==
LOC: ANHED 21:31 → ANH3MEDSUR 21:47
PROVIDERS: Anesthesiology; Internal Medicine Critical Care Medicine; Internal Medicine Gastroenterology; Student in an Organized Health Care Education/Training Program; Admitting Provider Internal Medicine; Emergency Provider Physician Assistant; Visit Provider Nurse Practitioner Family
PROC: 0DJ08ZZ Inspection of Upper Intestinal Tract, Via Natural or Artificial Opening Endoscopic (ICD-10-PCS; CPT 43235; principal; 2023-11-02 14:00)
PROC: 0DH63UZ Insertion of Feeding Device into Stomach, Percutaneous Approach (ICD-10-PCS; CPT 43246; principal; 2023-11-08 14:30)
DX: G62.89 Other specified polyneuropathies (principal); E43 Unspecified severe protein-calorie malnutrition; Z68.1 Body mass index [BMI] 19.9 or less, adult; N39.0 Urinary tract infection, site not specified; B96.1 Klebsiella pneumoniae [K. pneumoniae] as the cause of diseases classified elsewhere; R20.2 Paresthesia of skin; E87.6 Hypokalemia; M79.604 Pain in right leg; R13.10 Dysphagia, unspecified; R63.0 Anorexia; E86.0 Dehydration; E87.3 Alkalosis; I34.1 Nonrheumatic mitral (valve) prolapse; F12.90 Cannabis use, unspecified, uncomplicated; F17.210 Nicotine dependence, cigarettes, uncomplicated
CPT/HCPCS: 36415; 36600; 43246; 43752; 62328; 70553; 71046; 72156; 72157; 72158; 78264; 80053; 80307; 81001; 81025; 82040; 82042; 82175; 82375; 82525; 82550; 82595; 82607; 82652; 82746; 82784; 82805; 82945; 82948; 83036; 83050; 83605; 83655; 83735; 83825; 83873; 83916; 84100; 84132; 84157; 84207; 84425; 84443; 84630; 85025; 85027; 85610; 85652; 85730; 86038; 86140; 86235; 86334; 86335; 86403; 86592; 86617; 86635; 86703; 86787; 86788; 87015; 87070; 87086; 87102; 87116; 87186; 87206; 87389; 87497; 87529; 87798; 88108; 88305; 88342; 89051; 93005; 94640; 96365; 96366; 96367; 96368; 96375; 97110; 97116; 97161; 97165; 97530; 97535; 99285; A9270; A9541; A9577; G0378; G0432; J0295; J0690; J0696; J0780; J1200; J1885; J2270; J2405; J2704; J3411; J3475; J3480; J7030; J7040; J7050; J7120; J7121

== ENCOUNTER 2023-11-14 09:06 | Outpatient (CLI) | payer OTHER, SELFPAY ==
--- NOTE | 2023-11-14 11:30 | NEURO_ITS ---
Nerve Conduction Studies 1. Left and right sural and medial plantar sensory responses were absent 2. Right ulnar digital sensory was absent. Right median palmar sensory distal latency was mildly prolonged wears aperture and conduction velocities were moderately decreased. Right median digital sensory distal latency over 3rd digit was absent. 3. Right ulnar motor distal latency and conduction velocity were within normal limits however amplitude was mildly decreased. 4. Right median motor distal latency and conduction velocity within normal limits however appears mildly decreased. There is evidence of Epifanio Adrian anastomosis. 5. Right H-reflex latency was normal however epidural significant decreased. Left H-reflex was absent. 6. Left and right peroneal motor distal latency was normal however amplitudes were moderately decreased. Conduction velocities from fibular head to ankle were mildly decreased. 7. Tibial motor distal latencies amplitude and conduction velocity within normal limits on both sides Impression EMG nerve conduction study of both lower and right upper limb are supportive diagnosis of a diffuse pre dominantly, length-dependent, sensory motor axonal polyneuropathy. There are no significant demyelinating features noted at this time. clinical and radiologic correlation are recommended. There was no supportive evidence for myopathy or radiculopathy at this time. Oscar Wang MD, FAAN, FAANEM Neurologist/ electromyographer Anti Sensory Summary Table Stim Site NR Onset (ms) Peak (ms) P-T Amp (?V) Site1 Site2 Delta-0 (ms) Dist (mm) Alvaro (m/s) Right Median DIII Anti Sensory (3rd Digit) Wrist NR Wrist 3rd Digit 125 Left Sural Anti Sensory Run #5 (Lat Mall) NO RESPONSE Calf NR Calf Lat Mall 160 Right Sural Anti Sensory (Lat Mall) NO RESPONSE Calf NR Calf Lat Mall 160 Right Ulnar Anti Sensory Run #2 (5th Digit) Wrist 3.1 6.3 Wrist 5th Digit 2.0 135 Ortho Sensory Summary Table Stim Site NR Peak (ms) P-T Amp (?V) Site1 Site2 Delta-P (ms) Dist (mm) Alvaro (m/s) Left Medial Plantar Ortho Sensory (Med Malleolus) NO RESPONSE Digit 1 NR Digit 1 Med Malleolus 6.0 100 Right Medial Plantar Ortho Sensory (Med Malleolus) NO RESPONSE Digit 1 NR NR Digit 1 Med Malleolus 90 Motor Summary Table Stim Site NR Onset (ms) O-P Amp (mV) Site1 Site2 Delta-0 (ms) Dist (mm) Alvaro (m/s) Right Median Motor (Abd Poll Brev) Wrist 3.4 5.0 Wrist Elbow 3.3 180 55 Elbow 6.7 4.9 Left Peroneal Motor (Ext Dig Brev) Ankle 4.8 1.1 B Fib Ankle 7.0 235 34 Popit 9.7 0.9 B Fib Popit 2.1 65 31 B Fib 11.8 0.8 Right Peroneal Motor (Ext Dig Brev) Ankle 4.4 1.5 B.FIB Ankle 6.6 220 33 B.FIB 11.0 1.5 B.FIB POP 0.0 Left Tibial Motor Run #2 (Abd Francis Brev) Ankle 4.1 7.3 Knee Ankle 7.5 310 41 Knee 11.6 5.8 Right Tibial Motor (Abd Francis Brev) Ankle 5.3 7.8 Knee Ankle 7.0 330 47 Knee 12.3 7.4 Right Ulnar Motor (Abd Dig Minimi) Wrist 2.7 5.2 B Elbow Wrist 3.0 175 58 B Elbow 5.7 4.4 A Elbow B Elbow 1.3 65 50 A Elbow 7.0 4.1 Comparison Summary Table Stim Site NR Peak (ms) P-T Amp (?V) Site1 Site2 Alvaro (m/s) Dist (mm) Right Median/Ulnar Palm Comparison Run #2 (Wrist - 8cm) Median Palm 2.5 9.9 Median Palm Wrist - 8cm 32 80 H Reflex Studies NR H-Lat (ms) Max H-Amp (mV
== END 2023-11-14 09:07 | disposition home or self-care (01) ==
LOC: ANHNEURO 09:08
PROVIDERS: Visit Provider Student in an Organized Health Care Education/Training Program
DX: G62.9 Polyneuropathy, unspecified (principal)
CPT/HCPCS: 95886; 95913

== ENCOUNTER 2024-02-05 14:15 | Inpatient (IN) | payer OTHER, SELFPAY ==
--- NOTE | ~2024-02-05 | XR_ITS ---
Clinical Indication: Shortness of breath PA and lateral views of the chest: Comparison: 11/04/2023 Findings: The lungs are clear, aside from probable calcified granuloma, without evidence of focal con solidation or pleural effusion. Cardiomediastinal silhouette is within normal limits. Bones and soft tissues are unremarkable. Impression: No acute abnormality. Reviewed, dictated and finalized at location . Impression: No acute abnormality.
[2024-02-05 14:25] VITALS: BP 121/87; PULSE 117; RESP 20; TEMP 36.9; O2SAT 99
[2024-02-05 14:33] VITALS: BP 167/103; PULSE 92; RESP 18; O2SAT 100
--- NOTE | 2024-02-05 17:47 | ED.WEAKNESS ---
HPI - Weakness General Chief complaint: Weakness Stated complaint: fever, nausea Time Seen by Provider: 02/05/24 17:43 History of Present Illness HPI Narrative: Patient is a 34 year old female with history of paresthesias, anorexia, likely ARFID here with nausea, vomiting and inability to eat. she notes that she was hospitalized in October for inability to eat, was started on a appetite stimulator and a feeding tube was placed. She states that she currently does home feeds every 6 hours. She notes that about 1 month after discharge she did not get a refill on her appetite stimulator. She has had progressive worsening of her symptoms over the last 3 months since this appetite stimulator was not continued. She notes nausea, vomiting, vague abdominal discomfort and worsening of her paresthesias. She states she has been unable to give herself her tube feeds because it makes her nausea and vomiting worse. She denies pain at her feeding tube site, has noticed a faint amount of drainage and erythema right at the site of her feeding tube. she notes a subjective fever and chills at home and diarrhea which began about 1 week ago. She has not had any sick contacts. She denies cough, congestion. Related Data Home Medications Medication Instructions Recorded Confirmed No Home Medications 06/21/23 11/25/23 Allergies Allergy/AdvReac Type Severity Reaction Status Date / Time latex Allergy Rash Verified 11/25/23 15:06 Review of Systems Review of Systems: All systems reviewed & are unremarkable except as noted in HPI and below PMFSH Past Medical History Medical History Anorexia Dysphagia Mitral valve prolapse Nausea Surgical History Surgical History No history of previous surgery Family History Family History Mother Heart attack Grandparent Cancer Social History Social History (Updated 11/25/23 @ 15:08 by CHRISTINA Benson) Social History: Surrogate medical decision maker: Jorge Luis Centeno, significant other. Code status: Full code. Smoking packs per day: 0.5 Smoking cigarettes per day: 10.0 Years smoked: 16 Smoking pack-years: 8.00 Smoking status: Current every day smoker Tobacco type: cigarettes Alcohol intake: current Drinks per week: 10 Alcohol use details: Pt is lessening alcohol intake Substance use: current Substance use type: marijuana Last use: 10/31/23 Do You Feel Safe in your Home?: Yes Lack of Transportation: No Lack of Food: Never True Current Housing: I Have Housing Concerned About Future Housing: No Difficulty Paying Gas/Electric Bills: No Difficulty Paying for Meds: No Currently Unemployed: YES Education: High School Diploma/GED Difficulty w/ Childcare or Family Care: No Living arrangements: with family Occupation/Education: unemployed Gender identity (if verbalized by the patient): Female Sexual Orientation (if Verbalized by the Patient): Straight or Heterosexual Spiritual care concerns: No Agree to blood products: Yes Exam Narrative: GENERAL: Cachectic, and in no acute distress. HEAD: Normocephalic, atraumatic. EYES: PERRLA and EOMI. ENT: Nares clear. Mucous membranes moist. NECK: Supple. CHEST: Clear to auscultation. No respiratory distress. HEART: Regular rate and rhythm. Normal peripheral pulses. ABDOMEN: Soft, nontender, nondistended. G-tube present in left upper quadrant, appears clean and dry without any obvious infection. EXTREMITIES: Normal range of motion. No edema. SKIN: Warm, dry, no rash. NEURO: No focal deficits. Alert and oriented x3. PSYCH: Normal mood and affect. Course Course Emergency Course: Chart review performed. Patient here with weakness, fever, chills, shortness of breath. Reportedly worried that her feeding tube in infected.
[2024-02-05 19:04] LABS: Fractional Inspired Oxygen 21 %; HCO3 VBG 25.9 mEq/l (24.0-30.0); PO2 VBG 61.7 mmHg (35.0-45.0)
[2024-02-05 19:06] LABS: Device ROOM AIR
[2024-02-05 19:12] LABS: Basophils Percent Auto 0.6 % (0.2-1.2); Eosinophils Percent Auto 0.4 % (0-4.4); Hematocrit 36.9 % (37.0-47.0); Hemoglobin 13.2 g/dL (12.0-15.0); Immature Platelet Fraction Pct 5.5 % (0.9-11.2); Lymphocytes Absolute Auto 1.88 K/mm3 (0.9-3.2); Lymphocytes Percent Auto 37.4 % (18.3-44.2); Mean Corpuscular HGB Conc 35.8 g/dl (32-36); Mean Corpuscular Hemoglobin 33.8 pg (26-34); Mean Corpuscular Volume 94.4 fl (80-100); Monocytes Absolute Auto 0.4 K/mm3 (0.1-0.6); Monocytes Percent Auto 7.4 % (2.6-8.5); Neutrophils Absolute Auto 2.7 K/mm3 (1.3-6.7); Neutrophils Percent Auto 54.2 % (45.5-73.1); Platelet Count Result 86 k/mm3 (150-375); Red Blood Count 3.91 M/mm3 (4.2-5.4); Red Cell Distribution Width 14.6 % (11.5-14.5)
[2024-02-05 19:20] LABS: Lactic Acid Reflex 1.2 mmol/L (0.7-2.0)
[2024-02-05 19:25] LABS: Alanine Aminotransferase 41 U/L (6-35); Albumin Level 3.7 g/dL (3.5-5.1); Alkaline Phosphatase 132 U/L (38-126); Anion Gap 9 mmol/L (4-12); Aspartate Amino Transferase 114 U/L (14-36); Blood Urea Nitrogen 14 mg/dL (7-17); CRP < 0.5 mg/dL (<1.0); Calcium 8.6 mg/dL (8.4-10.2); Carbon Dioxide 29 mmol/L (22-30); Chloride 96 mmol/L (98-107); Estimated Glomerular Filt Rate > 60; Glucose 94 mg/dL (65-110); Lipase 102 U/L (23-300); Potassium 2.9 mmol/L (3.4-5.0); Sodium 134 mmol/L (137-145)
[2024-02-05 19:31] LABS: Platelet Estimate Decreased (Adequate)
[2024-02-05 19:32] LABS: INR 0.9; Prothrombin Time 12.7 Seconds (11.1-14.7); Schistocytes None Seen
[2024-02-05 19:33] LABS: Partial Thromboplastin Time 21.6 Seconds (22.3-36.8)
[2024-02-05] MEDS: LACTATED RINGERS 1,000 ML 999 ML IV CONT (19:34)
[2024-02-05] MEDS: ONDANSETRON INJ 4 MG/2 ML VIAL IV PUSH ×2 (19:35→22:56)
[2024-02-05 19:46] LABS: Influenza A QL RT-PCR Negative (Negative); Influenza B QL RT-PCR Negative (Negative); RSV RNA, RT-PCR Negative (Negative); SARS-CoV-2 RNA PCR Negative (Negative)
--- NOTE | 2024-02-05 19:55 | ECG_ITS ---
Test Date: 2024-02-05 20:14:41 Measurements Intervals [place] Rate: 71 P: 73 MI: 111 QRS: 59 QRSD: 90 T: 70 QT: 414 QTc: 453 Interpretive Statements SINUS RHYTHM WITH SHORT MI INTERVAL BASELINE ARTIFACT- I, II, III, AVR, AVL, AVF, V5-V6 BORDERLINE ECG No previous ECG available for comparison Electronically Signed On 02-06-2024 08:17:26 CDT by Jayme Mcneal D.O.
[2024-02-05 19:59] LABS: Magnesium 1.4 mg/dL (1.6-2.3)
[2024-02-05] MEDS: MORPHINE SULFATE (*CRX) 2 MG/ML INJ IV PUSH ×2 (20:12→22:56)
[2024-02-05 20:46] LABS: Phosphorus 2.5 mg/dL (2.5-4.5)
--- NOTE | 2024-02-05 20:50 | PM.IMHP ---
H&P: HPI History of Present Illness Date/Time: 02/05/24 20:50 Chief Complaint: Weakness. Narrative: This is a pleasant 34-year-old female with suspected avoid/restrictive food intake disorder, severe protein calorie malnutrition status PEG tube insertion, peripheral neuropathy, depression, and anxiety who presented to the emergency department via private vehicle from home for evaluation of weakness. The patient provides the following history. Her PEG tube was inserted in October 2023 and she was discharged home with an appetite stimulant which was not refilled because it is not a long-term solution. Since running out of the medication she reports an increase in nausea and decreased oral intake. At time she skips her tube feedings due to the nausea and is not unusual for her to vomit up to tube feedings. She has become increasingly weak and her fiance made her come in today for evaluation. Additionally she reports subjective fever and chills and she worries that her PEG tube may be coming infected as she has noticed a small amount of redness around the site. She has had some loose stools which is not necessarily unusual for her. She denies documented fever, cold and flu symptoms, hematemesis, melena, hematochezia, and dysuria. of note, the patient has chronic weakness at baseline and she ambulates with a walker. In the ED: She was afebrile on arrival. Initial blood pressure was quite elevated but has since normalized. labs were significant for WBC count of 5.0, hemoglobin 13.2, platelet 86, sodium 134, potassium 2.9, chloride 96, BUN 14, creatinine 0.60, lactic acid 1.2, phosphorus 2.5, magnesium 1.4, total bili I 0.0, AST 114, ALT 41, alkaline phosphatase 132. She tested negative for influenza, RSV, and COVID. Chest x-ray showed no acute cardiopulmonary abnormality. She was given a L of lactated Ringer's, 40 mEq potassium chloride, and 2 g magnesium sulfate. She is being admitted in this setting for further hydration and supportive care. Review of Systems Review of Systems: 12 systems were reviewed and are negative except for as per HPI. [facility] Past Medical History Medical History (Updated 02/05/24 @ 21:15 by Yolanda Lee PA-C) Avoidant/restrictive food intake disorder Depression with anxiety Mitral valve prolapse Surgical History Surgical History (Updated 02/05/24 @ 21:09 by Yolanda Lee PA-C) History of percutaneous endoscopic gastrostomy Family History Family History Mother Heart attack Grandparent Cancer Social History Social History (Updated 02/05/24 @ 21:09 by Yolanda Lee PA-C) Social History: Surrogate medical decision maker: Jorge Luis Centeno, significant other. Code status: Full code. Smoking packs per day: 0.5 Smoking cigarettes per day: 10.0 Years smoked: 16 Smoking pack-years: 8.00 Smoking status: Current every day smoker Alcohol intake: current Drinks per week: 10 Alcohol use details: Pt is lessening alcohol intake Substance use: current Substance use type: marijuana Last use: 10/31/23 Do You Feel Safe in your Home?: Yes Lack of Transportation: No Lack of Food: Never True Current Housing: I Have Housing Concerned About Future Housing: No Difficulty Paying Gas/Electric Bills: No Difficulty Paying for Meds: No Currently Unemployed: YES Education: High School Diploma/GED Difficulty w/ Childcare or Family Care: No Living arrangements: with family Occupation/Education: unemployed Spiritual care concerns: No Agree to blood products: Yes Meds Home Medications and Allergies Home Medications Medication Instructions Recorded Confirmed Type folic acid 1 mg tablet 1 mg PO DAILY #30 tabs 11/09/23 02/05/24 Rx megestrol 20 mg tablet 20 mg PO QAM #30 tabs 11/09/23 02/05/24 Rx multivitamin with folic acid 400 1 tablet PO QAM #30 tabs 11/09/23 02/05/24 Rx mcg tablet (Thera) thiamine H
[2024-02-05] MEDS: MAGNESIUM SULF 2 GM/WATER 50ML 2 GM/50 ML BAG IVPB (21:00)
[2024-02-05 21:16] VITALS: BP 123/82; PULSE 61; RESP 17; TEMP 36.7; O2SAT 100; BMI 15.3
--- NOTE | 2024-02-05 21:16 | PC.NURSE ---
Potassium sent up with the patient. magnesium was sent up running. patient difficult stick and has a single IV. while trying to get straight cath hospitalist was in the room and said that we didn't need urine right now that it would be gotten eventually
[2024-02-05 21:18] VITALS: TEMP 37.1
[2024-02-05] MEDS: POTASSIUM CHLORIDE INJ 40 MEQ in SODIUM CHLORIDE 0.9% IV 500 ML 130 MEQ IVPB (21:32)
[2024-02-05 22:01] VITALS: BMI 15.3
[2024-02-05] MEDS: SODIUM CHLORIDE 0.9% IV 500 ML 75 ML (22:56)
[2024-02-05] MEDS: NICOTINE (*PBKC) 7 MG PATCH 1 PATCH TRANSDERM (22:57)
--- NOTE | 2024-02-05 23:11 | ADMGEN ---
This patient, Ester León, was admitted to Medical Room 252-01. Patient/family oriented to hospital policies and general routines including ID bracelet, bed and alarms, visiting hours, pain management, procedures, bathroom and other care routines, personal items, smoking policy, room service/diet, and visiting hours. Information on how to activate the Rapid Response Team has been discussed. Patient/Family are encouraged to report perceived risks to care and to ask questions if they do not understand what they are told or what they should do.
[2024-02-05 23:24] VITALS: PULSE 68; RESP 18; O2SAT 99
[2024-02-05 23:29] LABS: Appearance Urine Cloudy (Clear); Bacteria Urine None Seen /hpf; Bilirubin Urine Negative (Negative); Blood Urine Negative (Negative); Color Urine Yellow (Yellow); Glucose Urine UA Negative (Negative); Ketones Urine Trace mg/dL (Negative); Leukocyte Esterase Ur 3+ LEU/UL (Negative); Nitrate Urine Negative (Negative); Non Pathogenic Casts 0-2; Protein Urine Negative (Negative); RBC Urine 0-2 /hpf (0-2); Specific Grav Ur 1.011 (1.001-1.035); Squamous Epithelial Cell Urine Occasional /hpf (Few); WBC Urine 51-100 /hpf (0-3); pH Urine 6.5 (5.0-9.0)
[2024-02-05 23:35] LABS: Add Urine Microscopic? YES
[2024-02-05 23:38] LABS: Pregnancy On Board Control Positive; Urine Pregnancy Test Negative
[2024-02-06] VITALS (10 sets, daily range): BP systolic 106–122; BP diastolic 62–76; PULSE 63–104; RESP 16–18; TEMP 36.7–36.8; O2SAT 97–100; BMI 15.3
[2024-02-06] MEDS: traZODone HCL 50 MG TABLET PO ×2 (03:08→21:32)
[2024-02-06] MEDS: HYDROcodone/acetaminophen (*CRX) 5-325 MG TABLET 1 TAB FEED TUBE ×4 (03:08→21:32)
[2024-02-06 04:54] LABS: Hematocrit 33.6 % (37.0-47.0); Hemoglobin 11.4 g/dL (12.0-15.0); Immature Platelet Fraction Pct 5.5 % (0.9-11.2); Mean Corpuscular HGB Conc 33.9 g/dl (32-36); Mean Corpuscular Hemoglobin 33.3 pg (26-34); Mean Corpuscular Volume 98.2 fl (80-100); Mean Platelet Volume 9.8 fl (7.4-10.4); Platelet Count Result 76 k/mm3 (150-375); Red Blood Count 3.42 M/mm3 (4.2-5.4); Red Cell Distribution Width 14.5 % (11.5-14.5)
[2024-02-06 05:09] LABS: Alanine Aminotransferase 30 U/L (6-35); Albumin Level 2.8 g/dL (3.5-5.1); Alkaline Phosphatase 102 U/L (38-126); Anion Gap 5 mmol/L (4-12); Aspartate Amino Transferase 70 U/L (14-36); Bilirubin,Total 1.4 mg/dL (0.2-1.3); Blood Urea Nitrogen 8 mg/dL (7-17); Calcium 7.8 mg/dL (8.4-10.2); Carbon Dioxide 28 mmol/L (22-30); Chloride 101 mmol/L (98-107); Estimated CRCL calculation 66 ml/min; Estimated Glomerular Filt Rate > 60; Glucose 77 mg/dL (65-110); Magnesium 1.8 mg/dL (1.6-2.3); Phosphorus 2.1 mg/dL (2.5-4.5); Potassium 3.2 mmol/L (3.4-5.0); Sodium 134 mmol/L (137-145)
[2024-02-06 05:26] LABS: Anion Gap 5 mmol/L (4-12); Blood Urea Nitrogen 8 mg/dL (7-17); Carbon Dioxide 29 mmol/L (22-30); Chloride 101 mmol/L (98-107); Estimated CRCL calculation 66 ml/min; Estimated Glomerular Filt Rate > 60; Glucose 76 mg/dL (65-110); Magnesium 1.7 mg/dL (1.6-2.3); Potassium 3.3 mmol/L (3.4-5.0); Sodium 135 mmol/L (137-145)
[2024-02-06 05:35] LABS: Hepatitis B Surface Antigen Negative (Negative)
[2024-02-06 05:41] LABS: HAV RESULT Negative (Negative); Hepatitis B Core IgM Result Negative (Negative)
[2024-02-06 05:52] LABS: Hepatitis C Virus Antibody Negative (Negative)
[2024-02-06] MEDS: PREGABALIN (*CRX) 75 MG CAPSULE FEED TUBE ×2 (06:50→21:32)
--- NOTE | 2024-02-06 07:20 | PM.IMPN ---
Progress Note: A&P Assessment and Plan (1) Avoidant/restrictive food intake disorder: Code(s): F50.82 - Avoidant/restrictive food intake disorder Status: Acute Assessment and Plan: Peg tube placed October 2023. Per patient, her PCP discontinued her appetite stimulant in late November. Since then she has been having increased nausea/vomiting with small amounts of oral intake. She also notes that she has not been taking her tube feeds because they have been causing her to become nauseous and vomit for 2 weeks. - Patient evaluated by psychiatrist, Dr. Wilson on 11/04. At that time he recommended referral to an eating disorder clinic for residential treatment; or for outpatient treatment with psychotherapy and follow-up with the psychiatrist. Care coordination consulted to further assist in the setting up of this. - Continue duloxetine 60 mg daily - Nutrition consulted Regular diet Jevity 1.5: bolus 120 ml QID with plan to advance to goal of 240 ml QID - Monitor CBC and electrolytes - Fall precautions (2) Electrolyte abnormality: Code(s): E87.8 - Other disorders of electrolyte and fluid balance, not elsewhere classified Status: Acute Assessment and Plan: On admission Na 134, K 2.9, and Mag 1.4. She was given a 1L LR, 40 mEq potassium chloride, and 2 g magnesium sulfate in the ED. Likely related to patients severe malnutrition and vomiting. - K 3.2, given 40 meq KCL PO - Mag 1.8, given 1 g mag sulfate IV - Phos 2.1, given 250 mg KPhos PO - Nutrition consulted Regular diet Jevity 1.5: bolus 120 ml QID with plan to advance to goal of 240 ml QID - Continue to monitor electrolytes with daily labs (3) Thrombocytopenia: Code(s): D69.6 - Thrombocytopenia, unspecified Status: Acute Assessment and Plan: Platelets 86 on admission. Prior hospitalizations platelets have been WNL. - Platelets 76 on am labs - Iron panel and B12/folate ordered - No signs of active bleeding - monitor (4) Elevated LFTs: Code(s): R79.89 - Other specified abnormal findings of blood chemistry Status: Acute Assessment and Plan: On admission total bili 1.0, AST 114, ALT 41, alkaline phosphatase 132. LFTs have been elevated in the past and likely related to patients anorexia. Abdominal exam benign. - Tot bili 1.4, AST 70, ALT 30, Alk phos 102 on am labs - Hepatitis panel negative - Continue to monitor Time Spent With Patient Time with patient: 25 - 35 minutes Subjective Date/time seen: 02/06/24 07:20 Interval history: 34-year-old female with suspected avoid/restrictive food intake disorder, severe protein calorie malnutrition status PEG tube insertion (October 2023), peripheral neuropathy, depression, and anxiety who presented to the emergency department via private vehicle from home for evaluation of weakness. Of note, patient was recently admitted for food avoidance in October. She underwent a full GI workup which was negative. Patient saw psychiatry, Dr. Wilson at that time that recommended inpatient or intensive outpatient treatment. Patient is pleasant lying comfortably in bed. Per patient, her PCP discontinued her appetite stimulant in late November. Since then she has been having increased nausea/vomiting with small amounts of oral intake. She also notes that she has not been taking her tube feeds because they have been causing her to become nauseous and vomit for 2 weeks. During assessment patient denies nausea/vomiting. She continues to endorse weakness which is likely related to her malnutrition and several electrolyte abnormalities. During last admission patient was evaluated by Dr. Wilson who recommended in vs outpatient psych for food restriction. Patient states she did not follow up on this as she felt she was doing very well with the stimulant. Patient denies chest pain, shortness of breath, palpitations, and changes in bowel/bladder. Review of Systems Review of Systems: All systems reviewed & are
[2024-02-06] MEDS: VITAMIN B COMPLEX CAPSULE 1 CAP PO (09:55)
[2024-02-06] MEDS: POTASSIUM PHOS/SODIUM PHOS 250 MG TABLET PO (09:55)
[2024-02-06] MEDS: POTASSIUM CHLORIDE 20 MEQ ER TABLET 40 MEQ PO (09:56)
[2024-02-06] MEDS: MULTIVITAMINS THERAPEUTIC TAB (*BKC) 1 TABLET PO (09:56)
[2024-02-06] MEDS: THIAMINE HCL 100 MG TABLET PO (09:56)
[2024-02-06] MEDS: NICOTINE (*PBKC) 7 MG PATCH 1 PATCH TRANSDERM (09:57)
[2024-02-06] MEDS: FOLIC ACID 1 MG TABLET PO (09:57)
[2024-02-06] MEDS: MAGNESIUM SULF 1 GM/D5W 100 ML 1 GM/100 ML BAG IVPB (09:57)
[2024-02-06] MEDS: ONDANSETRON INJ 4 MG/2 ML VIAL IV PUSH ×3 (10:26→21:33)
--- NOTE | 2024-02-06 13:32 | PCDIET ---
TUBE FEEDING RECOMMENDATIONS: 1. Regular diet 2. Initiate enteral nutrition: Jevity 1.5: Bolus 120 ml QID. Flush 200 ml QID. Recheck labs tomorrow and advance to goal if electrolytes are WNL. Goal: Jevity 1,5 bolus 240 ml QID, flush 200 ml QID. total 1420 kcal, 60 g protein, 720 free water from formula. Total 1520 ml free water including flushes. 3. Recommend thiamine 200-300 mg/day either PO or IV. Recommend multivitamin/mineral supplement
[2024-02-07] VITALS (9 sets, daily range): BP systolic 103–114; BP diastolic 66–72; PULSE 69–87; RESP 14–18; TEMP 36.4–36.7; O2SAT 100
[2024-02-07] MEDS: HYDROcodone/acetaminophen (*CRX) 5-325 MG TABLET 1 TAB FEED TUBE ×3 (04:44→20:27)
--- NOTE | 2024-02-07 05:27 | PC.NURSE ---
Pt stated that she is not tolerating bolus feedings. She reported diarrhea after each feeding since they have been resumed. Per pt, diarrhea resolves a few hours after each feeding. Pt refused morning bolus.
[2024-02-07 06:03] LABS: Iron 65 ug/dL (37-170)
[2024-02-07 06:12] LABS: Percent Iron Saturation 36 % (20-50)
[2024-02-07 06:40] LABS: Folic Acid > 20.0 ng/mL (2.76->20)
[2024-02-07 07:42] LABS: Alanine Aminotransferase 33 U/L (6-35); Albumin Level 2.8 g/dL (3.5-5.1); Alkaline Phosphatase 99 U/L (38-126); Anion Gap 4 mmol/L (4-12); Aspartate Amino Transferase 86 U/L (14-36); Bilirubin,Total 0.7 mg/dL (0.2-1.3); Blood Urea Nitrogen 6 mg/dL (7-17); Calcium 8.3 mg/dL (8.4-10.2); Carbon Dioxide 28 mmol/L (22-30); Chloride 103 mmol/L (98-107); Estimated CRCL calculation 78 ml/min; Estimated Glomerular Filt Rate > 60; Glucose 103 mg/dL (65-110); Potassium 3.6 mmol/L (3.4-5.0); Sodium 135 mmol/L (137-145)
--- NOTE | 2024-02-07 07:48 | PM.IMPN ---
Progress Note: A&P Assessment and Plan (1) Avoidant/restrictive food intake disorder: Code(s): F50.82 - Avoidant/restrictive food intake disorder Status: Acute Assessment and Plan: Peg tube placed October 2023. Per patient, her PCP discontinued her appetite stimulant in late November. Since then she has been having increased nausea/vomiting with small amounts of oral intake. She also notes that she has not been taking her tube feeds because they have been causing her to become nauseous and vomit for 2 weeks. - Patient evaluated by psychiatrist, Dr. Wilson on 11/04. At that time he recommended referral to an eating disorder clinic for residential treatment; or for outpatient treatment with psychotherapy and follow-up with the psychiatrist. Care coordination consulted to further assist in the setting up of this. - Continue duloxetine 60 mg daily - Restarted Megace 20 mg daily - Continue folic acid, multivitamin, thiamine - Nutrition consulted Regular diet Jevity 1.5: bolus 60 ml QID with plan to advance to goal of 240 ml QID Free water flushes 100 ml - Monitor CBC and electrolytes - Fall precautions (2) Electrolyte abnormality: Code(s): E87.8 - Other disorders of electrolyte and fluid balance, not elsewhere classified Status: Acute Assessment and Plan: On admission Na 134, K 2.9, and Mag 1.4. She was given a 1L LR, 40 mEq potassium chloride, and 2 g magnesium sulfate in the ED. Likely related to patients severe malnutrition and vomiting. - Na 135, decreased free water flushes to 100 mL - K 3.6, 40 mEq KCl given - Mag 1.7, 1 g Mag Sulfate IV given - Phos 2.9, no repletion required today - Nutrition consulted Regular diet Jevity 1.5: bolus 60 ml QID with plan to advance to goal of 240 ml QID Free water flushes 100 ml - Continue to monitor electrolytes with daily labs (3) Thrombocytopenia: Code(s): D69.6 - Thrombocytopenia, unspecified Status: Acute Assessment and Plan: Platelets 86 on admission. Prior hospitalizations platelets have been WNL. - Platelets 79 on am labs - Iron panel and B12/folate WNL - No signs of active bleeding - monitor (4) Elevated LFTs: Code(s): R79.89 - Other specified abnormal findings of blood chemistry Status: Acute Assessment and Plan: On admission total bili 1.0, AST 114, ALT 41, alkaline phosphatase 132. LFTs have been elevated in the past and likely related to patients anorexia. Abdominal exam benign. - Tot bili 0.7, AST 86, ALT 33, Alk phos 99 on am labs - Hepatitis panel negative - Continue to monitor Time Spent With Patient Time with patient: 25 - 35 minutes Subjective Date/time seen: 02/07/24 07:48 Interval history: 34-year-old female with suspected avoid/restrictive food intake disorder, severe protein calorie malnutrition status PEG tube insertion (October 2023), peripheral neuropathy, depression, and anxiety who presented to the emergency department via private vehicle from home for evaluation of weakness. Of note, patient was recently admitted for food avoidance in October. She underwent a full GI workup which was negative. Patient saw psychiatry, Dr. Wilson at that time that recommended inpatient or intensive outpatient treatment. Patient is pleasant lying comfortably in bed. She states approximately 1 hour after starting the tube feed boluses at half rate she developed diarrhea and nausea. She notes 6-7 episodes of diarrhea. She denies hematochezia and melena. Discussed patient with nutrition. Will decrease her tube feeds to 60 and trial oral supplements. Patient remains on thiamine, folic and a multivitamin. Restarted patients stimulant, Megace as she said she was doing much better while on this. Will also decrease patient's free water flushes to 100 mil as her sodium remains low. Since lowering the tube feeds and starting the stimulant patient has been tolerating okay per RN. Review of Systems Review of Systems: All
[2024-02-07 07:55] LABS: Basophils Percent Auto 0.7 % (0.2-1.2); Eosinophils Absolute Auto 0.1 K/mm3 (0-0.3); Eosinophils Percent Auto 1.7 % (0-4.4); Hematocrit 36.2 % (37.0-47.0); Hemoglobin 12.3 g/dL (12.0-15.0); Immature Granulocyte Absolute 0.01 K/mm3 (0.00-0.031); Immature Granulocyte Percent A 0.2 % (0-0.5); Lymphocytes Absolute Auto 1.49 K/mm3 (0.9-3.2); Lymphocytes Percent Auto 35.7 % (18.3-44.2); Mean Corpuscular Hemoglobin 34.2 pg (26-34); Mean Corpuscular Volume 100.6 fl (80-100); Mean Platelet Volume 11.9 fl (7.4-10.4); Monocytes Absolute Auto 0.3 K/mm3 (0.1-0.6); Monocytes Percent Auto 6.7 % (2.6-8.5); Neutrophils Absolute Auto 2.3 K/mm3 (1.3-6.7); Platelet Count Result 79 k/mm3 (150-375); Red Cell Distribution Width 14.5 % (11.5-14.5); White Blood Count 4.2 K/mm3 (4.5-10.0)
[2024-02-07 08:36] LABS: Magnesium 1.7 mg/dL (1.6-2.3); Phosphorus 2.9 mg/dL (2.5-4.5)
[2024-02-07] MEDS: MEGESTROL ACETATE (*CHEMO) 20 MG TABLET PO (09:22)
[2024-02-07] MEDS: VITAMIN B COMPLEX CAPSULE 1 CAP PO (09:23)
[2024-02-07] MEDS: MULTIVITAMINS THERAPEUTIC TAB (*BKC) 1 TABLET PO (09:23)
[2024-02-07] MEDS: NICOTINE (*PBKC) 7 MG PATCH 1 PATCH TRANSDERM (09:23)
[2024-02-07] MEDS: THIAMINE HCL 100 MG TABLET PO (09:23)
[2024-02-07] MEDS: PREGABALIN (*CRX) 75 MG CAPSULE FEED TUBE ×2 (09:23→20:27)
[2024-02-07] MEDS: FOLIC ACID 1 MG TABLET PO (09:23)
[2024-02-07] MEDS: ONDANSETRON INJ 4 MG/2 ML VIAL IV PUSH ×3 (09:25→21:54)
--- NOTE | 2024-02-07 11:00 | PCNFU ---
Nutrition Follow-Up Complete: Severe protein calorie malnutrition related to disordered eating as evidenced by intakes <75% needs >1 month; weight loss -19%/8 months; severe muscle wasting (temporalis, clavicles, shoulders, knees, calves); severe fat loss (buccal fat pads, ribs) goal: Tolerate tube feedings at goal Patient has limited progress towards goal. We will continue current goal. Pt current nutrition is Regular with Jevity 1.5 tube feedings . Nutrition recommendation: Thrive Ice Cream BID and Lactose free milk. Last recorded weight is 36.8 kg. Bowel Motility:+BM reported 02/06 Labs Reviewed: Cr 0.5,BUN 6, Na 135, Hct 36.2, Ca 8.3 Meds Noted: Megace, Thiamine, MVI, Folic Acid Skin: WNL Additional Notes: Spoke with hospitalist today regarding tube feedings. Patient having nausea/vomiting this morning. Tube feedings will be half rated to 60 ml QID (360 kcals/15 gm protein), Flush decreased to 100 ml q 4 hours. Diet order: Regular. Spoke with patient regarding diet supplements. She will try Nutritional Ice cream TID providing an additional 300 kcals and 9 gms protein and drink Fairlife lactose free milk providing an additional 250 kcals and 23 gms protein. Breakfast today she did eat pancakes and eggs. Electrolytes WNL today. Agree with diet orders. Monitoring labs, tube feeding tolerance, PO intake, weights, plan of care Follow up Tuesday and Tuesday per policy
[2024-02-07] MEDS: POTASSIUM CHLORIDE 20 MEQ ER TABLET 40 MEQ PO (11:11)
--- NOTE | 2024-02-07 11:52 | PCPTNOTE ---
On 02/07/24, the student, [Xin Barnhart], provided care and completed [facility] documentation on this patient. I have reviewed the student's documentation and agree with the findings.
[2024-02-07] MEDS: DULoxetine HCL 60 MG CAPSULE.DR PO (13:48)
[2024-02-07] MEDS: ACETAMINOPHEN 325 MG TABLET 650 MG PO (13:51)
--- NOTE | 2024-02-07 13:55 | PCOTNOTE ---
Attempted to see pt. for occupational therapy evaluation. Pt. independent with PT during evaluation, and declines need for OT services, nursing aware and in agreement. Hospitalist Suzy Diaz notified and in agreement for cancelation of orders.
[2024-02-07] MEDS: traZODone HCL 50 MG TABLET PO (20:27)
[2024-02-08] VITALS: PULSE 69
[2024-02-08 04:00] VITALS: PULSE 68
[2024-02-08] MEDS: HYDROcodone/acetaminophen (*CRX) 5-325 MG TABLET 1 TAB FEED TUBE ×2 (04:25→10:21)
[2024-02-08] MEDS: ONDANSETRON INJ 4 MG/2 ML VIAL IV PUSH ×2 (04:25→10:19)
[2024-02-08 05:07] LABS: Basophils Percent Auto 0.7 % (0.2-1.2); Eosinophils Absolute Auto 0.1 K/mm3 (0-0.3); Eosinophils Percent Auto 1.8 % (0-4.4); Hematocrit 33.9 % (37.0-47.0); Hemoglobin 11.2 g/dL (12.0-15.0); Immature Platelet Fraction Pct 9.8 % (0.9-11.2); Lymphocytes Absolute Auto 1.43 K/mm3 (0.9-3.2); Lymphocytes Percent Auto 52.8 % (18.3-44.2); Mean Corpuscular Hemoglobin 33.8 pg (26-34); Mean Corpuscular Volume 102.4 fl (80-100); Mean Platelet Volume 11.3 fl (7.4-10.4); Monocytes Absolute Auto 0.2 K/mm3 (0.1-0.6); Monocytes Percent Auto 8.1 % (2.6-8.5); Neutrophils Percent Auto 36.6 % (45.5-73.1); Platelet Count Result 72 k/mm3 (150-375); Red Blood Count 3.31 M/mm3 (4.2-5.4); Red Cell Distribution Width 14.5 % (11.5-14.5); White Blood Count 2.7 K/mm3 (4.5-10.0)
[2024-02-08 05:19] LABS: Alanine Aminotransferase 30 U/L (6-35); Albumin Level 2.7 g/dL (3.5-5.1); Alkaline Phosphatase 102 U/L (38-126); Anion Gap 1 mmol/L (4-12); Aspartate Amino Transferase 67 U/L (14-36); Bilirubin,Total 0.3 mg/dL (0.2-1.3); Blood Urea Nitrogen 10 mg/dL (7-17); Calcium 8.6 mg/dL (8.4-10.2); Carbon Dioxide 31 mmol/L (22-30); Chloride 102 mmol/L (98-107); Estimated CRCL calculation 66 ml/min; Estimated Glomerular Filt Rate > 60; Glucose 100 mg/dL (65-110); Magnesium 1.6 mg/dL (1.6-2.3); Phosphorus 3.1 mg/dL (2.5-4.5); Sodium 134 mmol/L (137-145)
[2024-02-08 05:22] VITALS: BP 96/55; PULSE 60; RESP 18; TEMP 36.5; O2SAT 100
[2024-02-08 05:33] LABS: Anisocytosis 1+; Hypochromasia 1+; Platelet Estimate Decreased (Adequate); Schistocytes None Seen
[2024-02-08 08:00] VITALS: PULSE 96
[2024-02-08] MEDS: VITAMIN B COMPLEX CAPSULE 1 CAP PO (08:41)
[2024-02-08] MEDS: PREGABALIN (*CRX) 75 MG CAPSULE FEED TUBE (08:41)
[2024-02-08] MEDS: MULTIVITAMINS THERAPEUTIC TAB (*BKC) 1 TABLET PO (08:41)
[2024-02-08] MEDS: FOLIC ACID 1 MG TABLET PO (08:41)
[2024-02-08] MEDS: MEGESTROL ACETATE (*CHEMO) 20 MG TABLET PO (08:41)
[2024-02-08] MEDS: NICOTINE (*PBKC) 7 MG PATCH 1 PATCH TRANSDERM (08:41)
[2024-02-08] MEDS: DULoxetine HCL 60 MG CAPSULE.DR PO (08:41)
[2024-02-08] MEDS: THIAMINE HCL 100 MG TABLET PO (08:41)
[2024-02-08] MEDS: FERROUS SULFATE 325 MG TABLET DR PO (08:50)
--- NOTE | 2024-02-08 11:34 | PC.NURSE ---
Patient resting in bed. She was able to consume some of her breakfast. Last bolus given at 0425. No pain at this time. Patient hopes to go home today. Bolus at 60ml Q6. Flush order for Q4 and with bolus. Per patient, she is unable to swallow some of her pills which were crushed and administered through her feeding tube.
[2024-02-08 12:00] VITALS: PULSE 110
--- NOTE | 2024-02-08 12:23 | PM.DS ---
DS: Admitting Diagnosis Discharge Date 02/08/2024 Admitting Diagnosis Anorexia/Severe protein and caloric malnutrition/neuropathy/MDD/anxiety DS: Discharge Diagnosis Discharge Diagnosis (1) Avoidant/restrictive food intake disorder: Code(s): F50.82 - Avoidant/restrictive food intake disorder Status: Acute Assessment and Plan: Peg tube placed October 2023. Per patient, her PCP discontinued her appetite stimulant in late November. Since then she has been having increased nausea/vomiting with small amounts of oral intake. She also notes that she has not been taking her tube feeds because they have been causing her to become nauseous and vomit for 2 weeks. - Patient evaluated by psychiatrist, Dr. Wilson on 11/04. At that time he recommended referral to an eating disorder clinic for residential treatment; or for outpatient treatment with psychotherapy and follow-up with the psychiatrist. Care coordination consulted to further assist in the setting up of this. - Continue duloxetine 60 mg daily - Restarted Megace 20 mg daily - Continue folic acid, multivitamin, thiamine - Nutrition consulted Regular diet Jevity 1.5: bolus 60 ml QID with plan to advance to goal of 240 ml QID Free water flushes 100 ml - Monitor CBC and electrolytes - Fall precautions (2) Electrolyte abnormality: Code(s): E87.8 - Other disorders of electrolyte and fluid balance, not elsewhere classified Status: Acute Assessment and Plan: On admission Na 134, K 2.9, and Mag 1.4. She was given a 1L LR, 40 mEq potassium chloride, and 2 g magnesium sulfate in the ED. Likely related to patients severe malnutrition and vomiting. - Na 135, decreased free water flushes to 100 mL - K 3.6, 40 mEq KCl given - Mag 1.7, 1 g Mag Sulfate IV given - Phos 2.9, no repletion required today - Nutrition consulted Regular diet Jevity 1.5: bolus 60 ml QID with plan to advance to goal of 240 ml QID Free water flushes 100 ml - Continue to monitor electrolytes with daily labs (3) Thrombocytopenia: Code(s): D69.6 - Thrombocytopenia, unspecified Status: Acute Assessment and Plan: Platelets 86 on admission. Prior hospitalizations platelets have been WNL. - Platelets 79 on am labs - Iron panel and B12/folate WNL - No signs of active bleeding - monitor (4) Elevated LFTs: Code(s): R79.89 - Other specified abnormal findings of blood chemistry Status: Acute Assessment and Plan: On admission total bili 1.0, AST 114, ALT 41, alkaline phosphatase 132. LFTs have been elevated in the past and likely related to patients anorexia. Abdominal exam benign. - Tot bili 0.7, AST 86, ALT 33, Alk phos 99 on am labs - Hepatitis panel negative - Continue to monitor Plan Disposition: Patient discharged to home with family and home health. Tube feedings and f/U at [facility] for eating disorder DS: Summary Hospital Course Reason for hospitalization: Anorexia/Severe protein and caloric malnutrition/neuropathy/MDD/anxiety Hospital Course: 34-year-old female with suspected avoid/restrictive food intake disorder, severe protein calorie malnutrition status PEG tube insertion (October 2023), peripheral neuropathy, depression, and anxiety who presented to the emergency department via private vehicle from home for evaluation of weakness. Of note, patient was recently admitted for food avoidance in October. She underwent a full GI workup which was negative. Patient saw psychiatry, Dr. Wilson at that time that recommended inpatient or intensive outpatient treatment. Patient is pleasant lying comfortably in bed. She states approximately 1 hour after starting the tube feed boluses at half rate she developed diarrhea and nausea. She notes 6-7 episodes of diarrhea. She denies hematochezia and melena. Discussed patient with nutrition. Will decrease her tube feeds to 60 and trial oral supplements. Patient remains on thiamine, folic and a multivitamin. Resta
== END 2024-02-08 14:10 | disposition home or self-care (01) | DRG 422 ==
LOC: ANHED 19:58 → ANH2MED 20:37
PROVIDERS: Physician Assistant; Student in an Organized Health Care Education/Training Program; Admitting Provider Internal Medicine; Emergency Provider Student in an Organized Health Care Education/Training Program; PCP Internal Medicine; Visit Provider Nurse Practitioner Family
DX: E87.6 Hypokalemia (principal); F50.82 Avoidant/restrictive food intake disorder; E86.0 Dehydration; Z68.1 Body mass index [BMI] 19.9 or less, adult; F41.8 Other specified anxiety disorders; Z20.822 Contact with and (suspected) exposure to COVID-19; F17.210 Nicotine dependence, cigarettes, uncomplicated; G62.9 Polyneuropathy, unspecified; E83.42 Hypomagnesemia; D69.6 Thrombocytopenia, unspecified; Z93.1 Gastrostomy status
CPT/HCPCS: 36415; 71046; 80048; 80053; 80074; 81001; 81025; 82607; 82746; 82803; 83540; 83550; 83605; 83690; 83735; 84100; 85025; 85027; 85055; 85610; 85730; 86140; 87040; 87086; 87637; 93005; 96361; 96374; 96375; 97161; 99285; A9270; J2270; J2405; J3475; J3480; J7040; J7120

== ENCOUNTER 2024-03-27 20:40 | Observation (INO) | payer OTHER, SELFPAY ==
[2024-03-27 20:45] VITALS: BP 133/93; PULSE 115; RESP 18; TEMP 37.1; O2SAT 99
[2024-03-27 22:47] LABS: BEDSIDEPREGUCG Negative
[2024-03-27 22:51] LABS: Basophils Percent Auto 0.5 % (0.2-1.2); Eosinophils Percent Auto 0.3 % (0-4.4); Hematocrit 33.7 % (37.0-47.0); Immature Granulocyte Absolute 0.01 K/mm3 (0.00-0.031); Immature Granulocyte Percent A 0.3 % (0-0.5); Immature Platelet Fraction Pct 5.3 % (0.9-11.2); Lymphocytes Absolute Auto 0.99 K/mm3 (0.9-3.2); Lymphocytes Percent Auto 25.1 % (18.3-44.2); Mean Corpuscular HGB Conc 35.6 g/dl (32-36); Mean Corpuscular Hemoglobin 35.8 pg (26-34); Mean Corpuscular Volume 100.6 fl (80-100); Mean Platelet Volume 10.5 fl (7.4-10.4); Monocytes Absolute Auto 0.2 K/mm3 (0.1-0.6); Monocytes Percent Auto 5.3 % (2.6-8.5); Neutrophils Absolute Auto 2.7 K/mm3 (1.3-6.7); Neutrophils Percent Auto 68.5 % (45.5-73.1); Platelet Count Result 101 k/mm3 (150-375); Red Blood Count 3.35 M/mm3 (4.2-5.4); Red Cell Distribution Width 14.2 % (11.5-14.5)
[2024-03-27 23:18] LABS: Add Urine Microscopic? YES; Alanine Aminotransferase 101 U/L (6-35); Albumin Level 3.8 g/dL (3.5-5.1); Alkaline Phosphatase 180 U/L (38-126); Anion Gap 11 mmol/L (4-12); Appearance Urine Cloudy (Clear); Aspartate Amino Transferase 290 U/L (14-36); Bacteria Urine None Seen /hpf; Bilirubin Urine 1+ (Negative); Bilirubin,Total 1.4 mg/dL (0.2-1.3); Blood Urea Nitrogen 9 mg/dL (7-17); Blood Urine Negative (Negative); Budding Yeast Urine Present /hpf; Calcium 8.3 mg/dL (8.4-10.2); Carbon Dioxide 25 mmol/L (22-30); Chloride 94 mmol/L (98-107); Color Urine Dark Yellow (Yellow); Estimated CRCL calculation 71 ml/min; Estimated Glomerular Filt Rate > 60; Glucose 103 mg/dL (65-110); Glucose Urine UA Negative (Negative); Hyaline Casts Urine Present /lpf; Ketones Urine 2+ mg/dL (Negative); Leukocyte Esterase Ur 1+ LEU/UL (Negative); Lipase 73 U/L (23-300); Need Manual Microscopic Reviewed; Nitrate Urine Negative (Negative); Potassium 2.8 mmol/L (3.4-5.0); Protein Urine 1+ mg/dL (Negative); Sodium 130 mmol/L (137-145); Specific Grav Ur 1.027 (1.001-1.035); Squamous Epithelial Cell Urine None Seen /hpf (Few); WBC Urine 21-50 /hpf (0-3); pH Urine 5.5 (5.0-9.0)
[2024-03-27] MEDS: MAGNESIUM SULF 2 GM/WATER 50ML 2 GM/50 ML BAG IVPB (23:32)
[2024-03-27] MEDS: ONDANSETRON INJ 4 MG/2 ML VIAL IV PUSH (23:32)
[2024-03-27 23:39] LABS: Magnesium 1.3 mg/dL (1.6-2.3); Phosphorus 1.8 mg/dL (2.5-4.5)
[2024-03-28] VITALS (13 sets, daily range): BP systolic 103–132; BP diastolic 69–84; PULSE 66–109; RESP 12–16; TEMP 35.9–36.8; O2SAT 99–100; BMI 17.4
[2024-03-28] MEDS: SODIUM CHLORIDE 0.9% IV 2,000 ML 999 ML IV CONT (00:17)
[2024-03-28] MEDS: HYDROmorphone HCL INJ (*CRX) 1 MG/ML SYR 0.5 MG IV PUSH (00:18)
[2024-03-28] MEDS: POTASSIUM CHLORIDE INJ 40 MEQ in SODIUM CHLORIDE 0.9% IV 500 ML 130 MEQ IVPB (00:18)
[2024-03-28 01:06] LABS: Influenza A QL RT-PCR Negative (Negative); Influenza B QL RT-PCR Negative (Negative); SARS-CoV-2 RNA PCR Negative (Negative)
--- NOTE | 2024-03-28 01:52 | ED.GENADULT ---
HPI - General Adult General Chief complaint: Nausea/Vomiting/Diarrhea Stated complaint: n/v Time Seen by Provider: 03/27/24 22:12 History of Present Illness HPI narrative: This is a 34-year-old female with a history of malnutrition anorexia with a PEG tube presenting for 3 days of nausea vomiting. Patient states she has been unable to keep down any food including her tube feeds. She has also had several episodes of diarrhea now she is became feeling weak and shaky. Patient denies fevers, chest pain difficulty breathing or abdominal pain. She denies dysuria or urinary symptoms. She denies SI or HI. Related Data Home Medications Medication Instructions Recorded Confirmed hydrocodone 5 mg-acetaminophen 325 5 - 325 tablet feeding tube Q6H 02/05/24 02/05/24 mg tablet PRN Pain (Scale Score 7-10) nicotine 7 mg/24 hr daily 14 mg transdermal DAILY 02/05/24 02/05/24 transdermal patch (Nicoderm CQ) pregabalin 75 mg capsule 75 mg feeding tube BID 02/05/24 02/05/24 Allergies Allergy/AdvReac Type Severity Reaction Status Date / Time latex Allergy Rash Verified 03/27/24 23:55 [facility] Past Medical History Medical History Avoidant/restrictive food intake disorder Depression with anxiety Mitral valve prolapse Surgical History Surgical History History of percutaneous endoscopic gastrostomy Family History Family History Mother Heart attack Grandparent Cancer Social History Social History Social History: Surrogate medical decision maker: Jorge Luis Centeno, significant other. Code status: Full code. Smoking packs per day: 0.5 Smoking cigarettes per day: 10.0 Years smoked: 16 Smoking pack-years: 8.00 Smoking status: Current every day smoker Alcohol intake: current Drinks per week: 10 Alcohol use details: Pt is lessening alcohol intake Substance use: current Substance use type: marijuana Last use: 10/31/23 Do You Feel Safe in your Home?: Yes Lack of Transportation: No Lack of Food: Never True Current Housing: I Have Housing Concerned About Future Housing: No Difficulty Paying Gas/Electric Bills: No Difficulty Paying for Meds: No Currently Unemployed: YES Education: High School Diploma/GED Difficulty w/ Childcare or Family Care: No Living arrangements: with family Occupation/Education: unemployed Spiritual care concerns: No Agree to blood products: Yes Exam Narrative: APPEARANCE: No apparent distress. Head: atraumatic. EYES: EOMI, NOSE: Atraumatic NECK: Trachea midline RESPIRATORY: No increased rate of breathing CTAB CARDIOVASCULAR: RRR, ABDOMINAL: Non-distended, soft nontender, G-tube in place MUSCULOSKELETAl: Minimal muscle mass NEURO: Alert. Moving 4/4 extremities SKIN:: Warm, dry. Normal color PSYCHIATRIC: Normal affect Course Vital Signs Vital signs: Vital Signs Temperature 98.7 F 03/27/24 20:45 Pulse Rate 115 H 03/27/24 20:45 Respiratory Rate 18 03/27/24 20:45 Blood Pressure 133/93 H 03/27/24 20:45 Pulse Oximetry 99 03/27/24 20:45 Oxygen Delivery Room Air 03/27/24 20:45 Temperature 98.7 F 03/27/24 20:45 Pulse Rate 95 03/28/24 01:07 Respiratory Rate 15 03/28/24 01:07 Blood Pressure 118/80 03/28/24 01:07 Pulse Oximetry 100 03/28/24 01:07 Oxygen Delivery Room Air 03/27/24 20:45 Medical Decision Making [facility] Narrative Medical decision making narrative: -Course: 34-year-old female with history of restrictive eating disorder presenting with 3 days of nausea vomiting and diarrhea. Patient tachycardic on arrival. Given fluid resuscitation. Abdominal exam benign. Workup significant for multiple electrolyte abnormalities including hypokalemia, hypomagnesemia and hypo fossa tenia. All these
[2024-03-28] MEDS: METOCLOPRAMIDE HCL INJ 10 MG/2 ML VIAL IV PUSH (03:16)
[2024-03-28] MEDS: PREGABALIN (*CRX) 75 MG CAPSULE 150 MG PO (03:27)
[2024-03-28] MEDS: PROMETHAZINE HCL 25 MG/ML AMPUL IM (04:14)
[2024-03-28] MEDS: POTASSIUM/PHOSPHORUS/SODIUM 1.5 GM PACKET 1 PACKET PO (04:16)
[2024-03-28] MEDS: LACTATED RINGERS 1,000 ML 50 ML IV CONT (04:25)
--- NOTE | 2024-03-28 07:08 | PM.IMHP ---
H&P: HPI History of Present Illness Date/Time: 03/28/24 07:08 Chief Complaint: Nausea and Vomiting Narrative: This is a pleasant 34-year-old female with suspected avoid/restrictive food intake disorder, severe protein calorie malnutrition status PEG tube insertion, peripheral neuropathy, depression, and anxiety who presented to the emergency department via private vehicle with complaints of nausea, vomiting, and diarrhea. The patient provides the following history. For the last 3 days she has experienced nausea, vomiting, and diarrhea with subjective chills and abdominal cramping. She has also been dizzy and lightheaded S intermittent headache. She reports her 7 old son was sick with upper respiratory virus approximately 2 weeks ago. She has a history of who to went disorder for which she received a G-tube in October of 2023. She states her primary care provider is having her feed with Jevity 1575 mL 4 times a day with 60 mL water flushes 4 times a day. She also eats a regular diet when she can tolerate it. Today she is seen eating breakfast and her symptoms have resolved. She feels like the Zofran is helping. She denies urinary frequency, hesitancy, dysuria. Given asymptomatic cystitis no need to treat with antibiotics. In the ED labs were significant for white count 4.0, platelets 101, sodium 130, potassium 2.8, chloride 94, calcium 8.3, phosphorus 8.1, magnesium 1.3, T bili 1.4, AST 290, ALT 101, and alk-phos 180. Urinalysis was concerning for UTI with cloudy colored urine 1+ protein, 2+ ketones, 1+ bilirubin, 1+ leukocyte esterase, pyuria, and budding yeast. Urine was sent for culture. Upper respiratory viral panel was negative. Chest x-ray showed no cardiopulmonary acute disease. She received 2 L of normal saline, potassium chloride 40 mEq IV piggyback, magnesium sulfate 2 g, phos NaK packet x1, antiemetics, pain medication, and was started on 1 g Rocephin for presumed UTI. She was admitted in this setting to hospitalist service for further workup of her nausea and vomiting. Review of Systems Review of Systems: All systems reviewed & are unremarkable except as noted in HPI and below PMFSH Past Medical History Medical History Avoidant/restrictive food intake disorder Depression with anxiety Mitral valve prolapse Surgical History Surgical History History of percutaneous endoscopic gastrostomy Family History Family History Mother Heart attack Grandparent Cancer Social History Social History (Updated 03/28/24 @ 15:51 by Nayely Radford APRN) Social History: Surrogate medical decision maker: Jorge Luis Centeno significant other. Code status: Full code. Smoking packs per day: 0.5 Smoking cigarettes per day: 10.0 Years smoked: 17 Smoking pack-years: 8.50 Smoking status: Current every day smoker Tobacco type: cigarettes Alcohol intake: current Drinks per week: 4 Alcohol use details: States she drinks 1 pint a week Substance use: current Substance use type: marijuana Other substance usage details: 1 pint of Rum/week; last intake 03/25/24 Last use: 10/31/23 Do You Feel Safe in your Home?: Yes Lack of Transportation: No Lack of Food: Never True Current Housing: I Have Housing Concerned About Future Housing: No Difficulty Paying Gas/Electric Bills: No Difficulty Paying for Meds: No Currently Unemployed: No Education: High School Diploma/GED Difficulty w/ Childcare or Family Care: No Living arrangements: with family Additional living arrangements comments: with 7 year old son and fianc? Occupation/Education: unemployed Spiritual care concerns: No Agree to blood products: Yes Meds Home Medications and Allergies Home Medications Medication Instructions Recorded Confirmed Type hydrocodone 5 mg-ac
--- NOTE | 2024-03-28 07:20 | ECG_ITS ---
Test Date: 2024-03-28 08:46:27 Measurements Intervals [place] Rate: 80 P: 57 OK: 135 QRS: 41 QRSD: 86 T: 42 QT: 410 QTc: 473 Interpretive Statements SINUS RHYTHM BASELINE ARTIFACT- I, II, III, AVR, AVL, AVF, V3-V6 NORMAL ECG Compared to ECG 02/05/2024 20:14:41 NO SIGNIFICANT CHANGE Electronically Signed On 03-28-2024 09:14:46 CDT by Jayme Mcneal D.O.
[2024-03-28] MEDS: MEGESTROL ACETATE (*CHEMO) ORAL SUSP 40 MG/ML SYR 20 MG FEED TUBE (08:14)
[2024-03-28] MEDS: MULTIVIT W/ IRON, MINERALS 15 ML LIQUID (*BKC) FEED TUBE (08:14)
[2024-03-28] MEDS: FERROUS SULFATE LIQUID 325 MG/7.4 ML ELIXIR FEED TUBE ×2 (08:17→16:29)
[2024-03-28] MEDS: THIAMINE HCL 100 MG TABLET FEED TUBE (08:17)
[2024-03-28] MEDS: FOLIC ACID 1 MG TABLET FEED TUBE (08:17)
[2024-03-28] MEDS: VITAMIN B COMPLEX CAPSULE 1 CAP FEED TUBE (08:17)
[2024-03-28] MEDS: PREGABALIN (*CRX) 75 MG CAPSULE PO (08:17)
[2024-03-28] MEDS: NICOTINE (*PBKC) 7 MG PATCH 1 PATCH TRANSDERM (08:18)
[2024-03-28] MEDS: HYDROcodone/acetaminophen (*CRX) 5-325 MG TABLET 1 TAB BY MOUTH ×3 (09:20→22:59)
[2024-03-28] MEDS: DULoxetine HCL 60 MG CAPSULE.DR PO (09:21)
[2024-03-28 09:30] LABS: Alanine Aminotransferase 82 U/L (6-35); Albumin Level 3.5 g/dL (3.5-5.1); Alkaline Phosphatase 164 U/L (38-126); Anion Gap 8 mmol/L (4-12); Aspartate Amino Transferase 214 U/L (14-36); Bilirubin,Total 1.3 mg/dL (0.2-1.3); Blood Urea Nitrogen 4 mg/dL (7-17); Calcium 7.8 mg/dL (8.4-10.2); Carbon Dioxide 25 mmol/L (22-30); Chloride 104 mmol/L (98-107); Estimated CRCL calculation 75 ml/min; Estimated Glomerular Filt Rate > 60; Glucose 93 mg/dL (65-110); Potassium 2.9 mmol/L (3.4-5.0); Sodium 137 mmol/L (137-145)
[2024-03-28] MEDS: POTASSIUM PHOS,M-BASIC-D-BASIC 40 MMOL in SODIUM CHLORIDE 0.9% IV 250 ML 43.89 MMOL IVPB (10:49)
[2024-03-28] MEDS: ONDANSETRON INJ 4 MG/2 ML VIAL IV PUSH ×2 (15:34→21:13)
[2024-03-28] MEDS: LOPERAMIDE HCL 2 MG CAPSULE PO (18:30)
[2024-03-28 19:13] LABS: Phosphorus 3.5 mg/dL (2.5-4.5); Potassium 3.7 mmol/L (3.4-5.0)
[2024-03-28 19:30] LABS: Toxigenic C. Diff NEGATIVE (NEGATIVE)
[2024-03-28] MEDS: PREGABALIN (*CRX) 75 MG CAPSULE FEED TUBE (21:12)
[2024-03-29] VITALS: PULSE 82
[2024-03-29] MEDS: traZODone HCL 50 MG TABLET FEED TUBE (00:26)
[2024-03-29 04:00] VITALS: PULSE 89
[2024-03-29 04:52] VITALS: BP 124/76; PULSE 91; RESP 16; TEMP 36.7; O2SAT 100
[2024-03-29] MEDS: LACTATED RINGERS 1,000 ML 50 ML IV CONT (05:51)
[2024-03-29 06:23] LABS: Hematocrit 30.3 % (37.0-47.0); Hemoglobin 10.2 g/dL (12.0-15.0); Immature Platelet Fraction Pct 6.8 % (0.9-11.2); Mean Corpuscular HGB Conc 33.7 g/dl (32-36); Mean Corpuscular Volume 109.8 fl (80-100); Mean Platelet Volume 10.8 fl (7.4-10.4); Platelet Count Result 74 k/mm3 (150-375); Red Blood Count 2.76 M/mm3 (4.2-5.4); Red Cell Distribution Width 14.9 % (11.5-14.5); White Blood Count 2.6 K/mm3 (4.5-10.0)
[2024-03-29 06:34] LABS: Alanine Aminotransferase 62 U/L (6-35); Albumin Level 2.7 g/dL (3.5-5.1); Alkaline Phosphatase 122 U/L (38-126); Anion Gap 6 mmol/L (4-12); Aspartate Amino Transferase 119 U/L (14-36); Bilirubin,Total 0.6 mg/dL (0.2-1.3); Blood Urea Nitrogen 2 mg/dL (7-17); Calcium 7.8 mg/dL (8.4-10.2); Carbon Dioxide 24 mmol/L (22-30); Chloride 106 mmol/L (98-107); Estimated CRCL calculation 89 ml/min; Estimated Glomerular Filt Rate > 60; Glucose 93 mg/dL (65-110); Magnesium 1.7 mg/dL (1.6-2.3); Phosphorus 3.1 mg/dL (2.5-4.5); Potassium 3.3 mmol/L (3.4-5.0); Sodium 136 mmol/L (137-145)
[2024-03-29] MEDS: HYDROcodone/acetaminophen (*CRX) 5-325 MG TABLET 1 TAB BY MOUTH ×2 (06:38→12:26)
--- NOTE | 2024-03-29 06:39 | PC.NURSE ---
PT ATE A SANDWICH AND ANUJ AND SALTINE CRACKERS DURING NIGHT,
[2024-03-29 08:00] VITALS: PULSE 104; O2SAT 100
[2024-03-29] MEDS: ONDANSETRON INJ 4 MG/2 ML VIAL IV PUSH ×2 (08:10→12:30)
[2024-03-29] MEDS: DULoxetine HCL 60 MG CAPSULE.DR PO (09:01)
[2024-03-29] MEDS: FOLIC ACID 1 MG TABLET FEED TUBE (09:01)
[2024-03-29] MEDS: NICOTINE (*PBKC) 7 MG PATCH 1 PATCH TRANSDERM (09:02)
[2024-03-29] MEDS: MULTIVIT W/ IRON, MINERALS 15 ML LIQUID (*BKC) FEED TUBE (09:02)
[2024-03-29] MEDS: VITAMIN B COMPLEX CAPSULE 1 CAP FEED TUBE (09:02)
[2024-03-29] MEDS: PREGABALIN (*CRX) 75 MG CAPSULE FEED TUBE (09:02)
[2024-03-29] MEDS: THIAMINE HCL 100 MG TABLET FEED TUBE (09:02)
[2024-03-29] MEDS: FERROUS SULFATE LIQUID 325 MG/7.4 ML ELIXIR FEED TUBE (09:03)
[2024-03-29] MEDS: POTASSIUM CHLORIDE 20 MEQ PACKET (FOR LIQUID) 80 MEQ PO (09:06)
--- NOTE | 2024-03-29 12:20 | PM.DS ---
DS: Admitting Diagnosis Discharge Date 03/29 Admitting Diagnosis Nausea, vomiting, diarrhea DS: Discharge Diagnosis Discharge Diagnosis (1) Electrolyte abnormality: Code(s): E87.8 - Other disorders of electrolyte and fluid balance, not elsewhere classified Status: Acute Assessment and Plan: Potassium 2.8, Magnesium 1.3, phosphorus 1.8, sodium 130, chloride 94. Likely related to poor intake from N/V versus dumping syndrome vs severe malnutrition Admit to med-tele with heart monitor Replete lytes and recheck BMP this afternoon IV fluids with LR at 50 ml per hour Multivitamin, B1, folic acid replacements Dietitian consulted for nutrition recommendations--Tube feeds to resume with Jevity 1.5 120 ml bolus QID with FWF 100 ml QID. Continue regular diet with nutritional ice cream BID (2) Nausea & vomiting: Qualifiers: Vomiting type: unspecified Qualified Code(s): R11.2 - Nausea with vomiting, unspecified Code(s): R11.2 - Nausea with vomiting, unspecified Status: Acute Assessment and Plan: Possibly viral etiology vs intolerance to tube feeding vs cyclic vomiting syndrome from marijuana use vs electrolyte derangements IVF LR 50 ml per hour Zofran prn as needed Slow initiation of tube feeds and monitoring of tolerance [place] on possible cannabinoid hyperemesis (3) Severe protein-calorie malnutrition: Code(s): E43 - Unspecified severe protein-calorie malnutrition Status: Acute Assessment and Plan: Dietitian consulted, recs appreciated See tube feeding and plan above (4) Nicotine abuse: Code(s): Z72.0 - Tobacco use Status: Acute Assessment and Plan: Patient reports a recent decrease in her daily smoking but is not ready to quit. Reinforce smoking cessation Nicotine patch as needed Plan DVT prophylaxis: SCD Glycemic control: NA Code Status: FULL CODE Disposition: 34-year-old female here with nausea, vomiting, and abdominal pain with likely viral gastroenteritis versus dumping syndrome versus cyclic vomiting syndrome. Patient had electrolyte derangement. She was placed on telemetry and electrolytes were replaced. She is from home anticipate discharge in the next 1-2 days. Medication reconciliation obtained via the following: Nurse completed on admission The file time of this note does not necessarily represent the time the patient was seen. DS: Summary Hospital Course Reason for hospitalization: Electrolyte derangement Hospital Course: This is a pleasant 34-year-old female with suspected avoid/restrictive food intake disorder, severe protein calorie malnutrition status PEG tube insertion, peripheral neuropathy, depression, and anxiety who presented to the emergency department via private vehicle with complaints of nausea, vomiting, and diarrhea. The patient provides the following history. For the last 3 days she has experienced nausea, vomiting, and diarrhea with subjective chills and abdominal cramping. She has also been dizzy and lightheaded S intermittent headache. She reports her 7 old son was sick with upper respiratory virus approximately 2 weeks ago. She has a history of who to went disorder for which she received a G-tube in October of 2023. She states her primary care provider is having her feed with Jevity 1575 mL 4 times a day with 60 mL water flushes 4 times a day. She also eats a regular diet when she can tolerate it. Today she is seen eating breakfast and her symptoms have resolved. She feels like the Zofran is helping. She denies urinary frequency, hesitancy, dysuria. Given asymptomatic cystitis no need to treat with antibiotics. In the ED labs were significant for white count 4.0, platelets 101, sodium 130, potassium 2.8, chloride 94, calcium 8.3, phosphorus 8.1, magnesium 1.3, lipase was normal, T
[2024-03-29] MEDS: MEGESTROL ACETATE (*CHEMO) 20 MG TABLET FEED TUBE (12:27)
== END 2024-03-29 13:53 | disposition home or self-care (01) ==
LOC: ANHED 03-28 02:44 → ANH2MED 03-28 03:14
PROVIDERS: Admitting Provider Internal Medicine; Emergency Provider Emergency Medicine; PCP Internal Medicine; Visit Provider Nurse Practitioner Acute Care
DX: E87.8 Other disorders of electrolyte and fluid balance, not elsewhere classified (principal); E87.6 Hypokalemia; E83.42 Hypomagnesemia; R79.89 Other specified abnormal findings of blood chemistry; E83.39 Other disorders of phosphorus metabolism; R11.2 Nausea with vomiting, unspecified; Z93.1 Gastrostomy status; F41.8 Other specified anxiety disorders; F50.82 Avoidant/restrictive food intake disorder; E43 Unspecified severe protein-calorie malnutrition; Z68.1 Body mass index [BMI] 19.9 or less, adult; G62.9 Polyneuropathy, unspecified; I34.1 Nonrheumatic mitral (valve) prolapse; F17.210 Nicotine dependence, cigarettes, uncomplicated; F12.90 Cannabis use, unspecified, uncomplicated; Z79.891 Long term (current) use of opiate analgesic; Z20.822 Contact with and (suspected) exposure to COVID-19
CPT/HCPCS: 36415; 80053; 81001; 81025; 83690; 83735; 84100; 84132; 85025; 85027; 85055; 87045; 87077; 87086; 87088; 87186; 87427; 87449; 87493; 87636; 93005; 96361; 96365; 96366; 96372; 96374; 96375; 96376; 99285; A9270; G0378; G0379; J0696; J1170; J2405; J2550; J2590; J2765; J3475; J3480; J7030; J7040; J7050; J7120

== ENCOUNTER 2024-05-21 13:12 | Inpatient (IN) | payer OTHER, SELFPAY ==
[2024-05-21] VITALS (17 sets, daily range): BP systolic 111–137; BP diastolic 71–96; PULSE 86–139; RESP 15–25; TEMP 36.4–37.3; O2SAT 98–100; BMI 16.8
--- NOTE | ~2024-05-21 | CT_ITS ---
EXAMINATION: CT abdomen pelvis w con DATE: 05/21/2024 15:29 INDICATION: Low abdominal pain. TECHNIQUE: Computed tomography (CT) of the abdomen and pelvis was performed with 100 mL Omnipaque 350 intravenous contrast. Automated exposure control and iterative reconstruction technique were employe d. The dose-length product was 175.54 mGy-cm. COMPARISON: None. FINDINGS: The visualized portions of lung bases are clear without pneumonia or pleural effusion. The heart size is normal. No pericardial effusion. The liver is normal. The gallbladder is distended, lik man secondary to fasting. Calcifications in the spleen are consistent with old granulomatous disease. The pancreas, adrenal glands, and kidneys are normal. There is a gastrostomy tube in expected positi on. There is wall thickening of the rectosigmoid. The appendix is normal. There are no pathologically enlarged lymph nodes. There is no free intraperitoneal fluid. There is mild lumbar spondylosis. IMPRESSION: 1. Wall thickening of the rectosigmoid, consistent with colitis. Reviewed, dictated and finalized at location B.
--- NOTE | 2024-05-21 13:29 | ED_ITS ---
HPI - Nausea/Vomiting/Diarrhea General Chief complaint: Nausea/Vomiting/Diarrhea Stated complaint: N/V, shaky Time Seen by Provider: 05/21/24 13:25 Focused HPI: Patient is a 34-year-old female who presents to the ER with complaints of nausea, vomiting, and abdominal pain. She reports she has had decreased p.o. intake for the last 2 days. Patient's presents to the ER with shakiness and complaints of a racing heart. She reports she been unable to eat and has a feeding tube, although she continues to vomit. Patient denies alcohol or drug use. She reports she is sexually active but has no concerns about being . Patient also endorses a history of neuropathy and mitral valve prolapse. No complaints of chest pain or shortness or breath. GENERAL: Well-appearing, well-nourished, and in no acute distress. HEAD: Normocephalic, atraumatic. CHEST: Clear to auscultation. ?+ Shortness of breath HEART: Tachycardia NEURO: ?Alert and oriented x3. Patient screened in triage and initial orders placed.? ?Additional care and disposition to be based upon?diagnostic testing and treatment. Related Data Home Medications Medication Instructions Recorded Confirmed ferrous sulfate 325 mg (65 mg 325 mg PO BID 03/28/24 05/21/24 iron) tablet,delayed release folic acid 1 mg tablet 1 mg feeding tube DAILY 03/28/24 05/21/24 megestrol 20 mg tablet 20 mg feeding tube QAM 03/28/24 05/21/24 multivitamin with folic acid 400 1 tablet PO QAM 03/28/24 05/21/24 mcg tablet (Thera) thiamine HCl (vitamin B1) 100 mg 100 mg feeding tube DAILY 03/28/24 05/21/24 tablet trazodone 50 mg tablet 50 mg feeding tube HS PRN insomnia 03/28/24 05/21/24 vitamin B complex (Vitamins B 1 cap feeding tube QAM 03/28/24 05/21/24 Complex capsule) Allergies Allergy/AdvReac Type Severity Reaction Status Date / Time latex Allergy Rash Verified 05/21/24 13:27 PMFSH Past Medical History Medical History (Updated 05/22/24 @ 12:20 by Braulio Prince MD) Avoidant/restrictive food intake disorder Cannabis abuse Depression with anxiety Elevated LFTs Mitral valve prolapse Surgical History Surgical History History of percutaneous endoscopic gastrostomy Family History Family History Mother Heart attack Grandparent Cancer Social History Social History Social History: Surrogate medical decision maker: Jorge Luis Centeno, significant other. Code status: Full code. Smoking packs per day: 0.5 Smoking cigarettes per day: 10.0 Years smoked: 17 Smoking pack-years: 8.50 Smoking status: Current every day smoker Tobacco type: cigarettes Alcohol intake: current Drinks per week: 4 Alcohol use details: States she drinks 1 pint a week Substance use: current Substance use type: marijuana Other substance usage details: 1 pint of Rum/week; last intake 03/25/24 Last use: 10/31/23 Do You Feel Safe in your Home?: Yes Lack of Transportation: No Lack of Food: Never True Current Housing: I Have Housing Concerned About Future Housing: No Difficulty Paying Gas/Electric Bills: No Difficulty Paying for Meds: No Currently Unemployed: No Education: High School Diploma/GED Difficulty w/ Childcare or Family Care: No Living arrangements: with family Additional living arrangements comments: with 7 year old son and fianc? Occupation/Education: unemployed Spiritual care concerns: No Agree to blood products: Yes Course Vital Signs Vital signs: Vital Signs Temperature 36.4 C 05/21/24 13:21 Pulse Rate 139 H 05/21/24 13:21 Respiratory Rate 18 05/21/24 13:21 Blood Pressure 137/92 H 05/21/24 13:21 Pulse Oximetry 99 05/21/24 13:21 Oxygen Delivery Room Air 05/21/24 13:21 Temperature 36.8 C 05/23/24 05:02 Pulse Rate 97 05/23/24 12:00 Respiratory Rate 18 05/23/24 05:02 Blood Pressure 101/75 05/23/24 05:02 Pulse Oximetry 100 05/23/24 05:02 Oxygen Delivery Room Air 05/23/24 08:30 MDM - Nausea/Vomiting/Diarrhea Lab Data 05/23/24 05:56 05/23/24 05:56 Labs: Lab Results 05/21/24 05/21/24 05/21/24 Range/Units 13:43 14:53 14:55 WBC 4.0 L (4.5-10.0) K/mm3 RBC 3.60 L (4.2-5.4) M/mm3 Hgb 13.3 D (12.0-15.0) g/dL Hct 36.6 L (37.0-47.0) % MCV 101.7 H (80-100) fl MCH 36.9 H (26-34) pg MCHC 36.3 H (32-36) g/dl RDW 13.8 (11.5-14.5) % Plt Count 166 D (150-375) k/mm3 MPV 10.3 (7.4-10.4) fl Immature Gran % (Auto) 0.3 (0-0.5) % Neut % (Auto) 79.5 H (45.5-73.1) % Lymph % (Auto) 14.1 L (18.3-44.2) % [place] % (Auto) 4.8 (2.6-8.5) % Eos % (Auto) 0.0 (0-4.4) % Baso % (Auto) 1.3 H (0.2-1.2) % Lymph # (Auto) 0.56 L (0.9-3.2) K/mm3 [place] # (Auto) 0.2 (0.1-0.6) K/mm3 Eos # (Auto) 0.0 (0-0.3) K/mm3 Baso # (Auto) 0.1 (0.0-0.1) K/mm3 Abs Immat Gran (auto) 0.01 (0.00-0.031) K/mm3 Absolute Neuts (auto) 3.2 (1.3-6.7) K/mm3 Absolute Nucleated RBC 0.000 (0.0-0.012) K/mm3 Nucleated RBC % 0.0 (0.0-0.2) % PT 13.2 (11.1-14.7) Seconds INR 1.0 APTT 26.2 (22.3-36.8) Seconds Sodium 134 L (137-145) mmol/L Potassium 2.3 L* (3.4-5.0) mmol/L Chloride 87 L (98-107) mmol/L Carbon Dioxide 29 (22-30) mmol/L Anion Gap 18 H (4-12) mmol/L BUN < 2 L (7-17) mg/dL Creatinine 0.60 L (0.7-1.0) mg/dL Estim Creat Clear Calc 72 ml/min Estimated GFR > 60 (59 - ) Glucose 136 H (65-110) mg/dL Lactic Acid 7.0 H* (0.7-2.0) mmol/L Calcium 8.5 (8.4-10.2) mg/dL Magnesium 1.3 L (1.6-2.3) mg/dL Total Bilirubin 1.3 (0.2-1.3) mg/dL AST 303 H (14-36) U/L ALT 101 H (6-35) U/L Alkaline Phosphatase 196 H (38-126) U/L Troponin I < 0.012 (0.000-0.034) ng/mL Total Protein 8.0 (6.3-8.2) g/dL Albumin 4.3 (3.5-5.1) g/dL Lipase 106 (23-300) U/L Urine Color Dark yellow (Yellow) Urine Appearance Cloudy H (Clear) Urine pH 5.5 (5.0-9.0) Ur Specific [place] 1.023 (1.001-1.035) Urine Protein 2+ H (Negative) mg/dL Urine Glucose (UA) Negative (Negative) mg/dL Urine Ketones Trace H (Negative) mg/dL Ur Blood (Man) Negative (Negative) Urine Nitrate Negative (Negative) Urine Bilirubin 2+ H (Negative) Urine Urobilinogen 1.0 (<2.0) mg/dL Leukocyte Esterase Rfl 1+ H (Negative) BECKY/UL Urine RBC 3-5 H (0-2) /hpf Urine WBC 11-20 H (0-3) /hpf Ur Squamous Epith Cells Occasional (Few) /hpf Urine Bacteria None seen /hpf Urine Casts 11-20 Hyaline Casts Present (None) /lpf POC Urine HCG, Qual Negative (Negative) Urine Opiates Screen Negative (Negative) Urine Methadone Screen Negative (Negative) Ur Barbiturates Screen Negative (Negative) Ur Phencyclidine Scrn Negative (Negative) Ur Amphetamine Screen Negative (Negative) U Benzodiazepines Scrn Negative (Negative) Urine Cocaine Screen Negative (Negative) U Cannabinoids Screen Negative (Negative) Discharge Plan Discharge Clinical Impression: Malnutrition, Abdominal pain Patient Disposition: Still a Patient Condition: Stable
--- NOTE | 2024-05-21 13:35 | ECG_ITS ---
Test Date: 2024-05-21 13:55:07 Measurements Intervals [place] Rate: 101 P: 80 TX: 101 QRS: 60 QRSD: 83 T: 62 QT: 423 QTc: 549 Interpretive Statements SINUS TACHYCARDIA WITH SHORT TX INTERVAL WITH FREQUENT VENTRICULAR PREMATURE COMPLEXES ST DEVIATION AND MODERATE T-WAVE ABNORMALITY, CONSIDER INFERIOR ISCHEMIA [-0.1+ mV T WAVE IN II/aVF] Compared to ECG 03/28/2024 08:46:27 Ventricular premature complex(es) now present Short TX interval now present T-wave abnormality now present Possible ischemia now present Sinus rhythm no longer present Electronically Signed On 05-21-2024 15:12:26 CDT by [place] M.D.
[2024-05-21] MEDS: SODIUM CHLORIDE 0.9% IV 1,000 ML 999 ML IV CONT (13:50)
[2024-05-21 13:59] LABS: Basophils Absolute Auto 0.1 K/mm3 (0.0-0.1); Basophils Percent Auto 1.3 % (0.2-1.2); Hematocrit 36.6 % (37.0-47.0); Hemoglobin 13.3 g/dL (12.0-15.0); Immature Granulocyte Absolute 0.01 K/mm3 (0.00-0.031); Immature Granulocyte Percent A 0.3 % (0-0.5); Lymphocytes Absolute Auto 0.56 K/mm3 (0.9-3.2); Lymphocytes Percent Auto 14.1 % (18.3-44.2); Mean Corpuscular HGB Conc 36.3 g/dl (32-36); Mean Corpuscular Hemoglobin 36.9 pg (26-34); Mean Corpuscular Volume 101.7 fl (80-100); Mean Platelet Volume 10.3 fl (7.4-10.4); Monocytes Absolute Auto 0.2 K/mm3 (0.1-0.6); Monocytes Percent Auto 4.8 % (2.6-8.5); Neutrophils Absolute Auto 3.2 K/mm3 (1.3-6.7); Neutrophils Percent Auto 79.5 % (45.5-73.1); Platelet Count Result 166 k/mm3 (150-375); Red Cell Distribution Width 13.8 % (11.5-14.5)
[2024-05-21 14:10] LABS: Prothrombin Time 13.2 Seconds (11.1-14.7)
[2024-05-21 14:11] LABS: Partial Thromboplastin Time 26.2 Seconds (22.3-36.8)
[2024-05-21 14:14] LABS: Albumin Level 4.3 g/dL (3.5-5.1); Alkaline Phosphatase 196 U/L (38-126); Anion Gap 18 mmol/L (4-12); Aspartate Amino Transferase 303 U/L (14-36); Bilirubin,Total 1.3 mg/dL (0.2-1.3); Calcium 8.5 mg/dL (8.4-10.2); Carbon Dioxide 29 mmol/L (22-30); Chloride 87 mmol/L (98-107); Estimated CRCL calculation 72 ml/min; Estimated Glomerular Filt Rate > 60; Glucose 136 mg/dL (65-110); Lipase 106 U/L (23-300); Magnesium 1.3 mg/dL (1.6-2.3); Potassium 2.3 mmol/L (3.4-5.0); Sodium 134 mmol/L (137-145)
[2024-05-21 14:18] LABS: Alanine Aminotransferase 101 U/L (6-35); Blood Urea Nitrogen < 2 mg/dL (7-17)
[2024-05-21 14:20] LABS: Troponin I < 0.012 ng/mL (0.000-0.034)
[2024-05-21] MEDS: PANTOPRAZOLE SODIUM IV 40 MG VIAL IV PUSH (14:23)
[2024-05-21] MEDS: PROMETHAZINE HCL 25 MG/ML AMPUL 12.5 MG IV PUSH (14:34)
[2024-05-21] MEDS: MAGNESIUM SULF 4 GM/WATER100ML 4 GM/100 ML BAG IVPB (14:57)
[2024-05-21 14:58] LABS: BEDSIDEPREGUCG Negative (Negative)
[2024-05-21] MEDS: POTASSIUM CHLORIDE INJ 40 MEQ in SODIUM CHLORIDE 0.9% IV 500 ML 130 MEQ IVPB (15:05)
[2024-05-21] MEDS: SODIUM CHLORIDE 0.9% IV 50 ML 999 ML (15:13)
[2024-05-21 15:18] LABS: Amphetamine Screen Urine Negative (Negative); Barbiturate Screen Urine Negative (Negative); Benzodiazepines Screen Urine Negative (Negative); Cannabinoid Screen Urine Negative (Negative); Cocaine Screen Urine Negative (Negative); Methadone Screen Urine Negative (Negative); Opiate Screen Urine Negative (Negative); Phencyclidine Screen Urine Negative (Negative)
[2024-05-21 15:32] LABS: Add Urine Microscopic? YES; Appearance Urine Cloudy (Clear); Bacteria Urine None Seen /hpf; Bilirubin Urine 2+ (Negative); Blood Urine Negative (Negative); Color Urine Dark Yellow (Yellow); Glucose Urine UA Negative (Negative); Hyaline Casts Urine Present /lpf; Ketones Urine Trace mg/dL (Negative); Leukocyte Esterase Ur 1+ LEU/UL (Negative); Nitrate Urine Negative (Negative); Protein Urine 2+ mg/dL (Negative); Specific Grav Ur 1.023 (1.001-1.035); Squamous Epithelial Cell Urine Occasional /hpf (Few); pH Urine 5.5 (5.0-9.0)
[2024-05-21] MEDS: SODIUM CHLORIDE 0.9% IV 500 ML 50 ML (15:35)
--- NOTE | 2024-05-21 16:27 | P.HP_ITS ---
H&P: HPI History of Present Illness Date/Time: 05/21/24 16:27 Chief Complaint: Vomiting abdominal pain Narrative: 34-year-old female history of depression and anxiety and anorexia with a G- tube presents the hospital with nausea vomiting and abdominal pain. Patient states that she has chronic nausea and vomiting as hospitalized several times last year for being unable to tolerate food the severe weight loss. A G-tube tube was placed to help her meet her nutritional goals. She states that on Tuesday her nausea and vomiting became more severe than normal and she was unable to tolerate tube feeds, or medications. She states that she also had severe diarrhea with this. Patient states that she is normally on a pain patch, which was removed on Tuesday and she had no more refills. She states that she had a appointment with marine painter today but missed it due to coming to the ED. patient denies history of anorexia or bulimia. She states that she will a workup done for chronic nausea and vomiting without diagnosis. In the ED the patient was found to be leukopenic, hypokalemia at 2.3, hyponatremic at 134, anion gap of 18, high lactic acid at 7.0, AST 303, ALT 101,alkaline phosphate 196 UA with 1+ leukocyte esterase. CT of the abdomen and pelvis showed rectosigmoid wall thickening, consistent with colitis. EKG shows sinus tach at rate of 101 and frequent PVCs. Urine, stool, and Blood cultures pending. In the ED the patient was given a fluid bolus, 4 g of magnesium, 40 mEq of potassium chloride and Phenergan. Review of Systems Constitutional: Constitutional: Reports fatigue and Reports weakness Eyes: Eyes: Reports no additional eye complaints ENT: Reports as per HPI Cardiovascular: Cardiovascular: Reports palpitations Respiratory: Respiratory: Reports no additional respiratory complaints Gastrointestinal: Gastrointestinal: Reports diarrhea, Reports nausea and Reports vomiting Genitourinary: Genitourinary: Reports no additional female genitourinary complaints Musculoskeletal: Comments: Chronic pain Psychiatric: Psychiatric: Reports no additional psychiatric complaints [facility] Past Medical History Medical History (Updated 05/21/24 @ 21:45 by Sofia Conrad APRN) Avoidant/restrictive food intake disorder Cannabis abuse Depression with anxiety Mitral valve prolapse Surgical History Surgical History History of percutaneous endoscopic gastrostomy Family History Family History Mother Heart attack Grandparent Cancer Social History Social History (Updated 03/28/24 @ 15:51 by Nayely Radford APRN) Social History: Surrogate medical decision maker: Jorge Luis Centeno, significant other. Code status: Full code. Smoking packs per day: 0.5 Smoking cigarettes per day: 10.0 Years smoked: 17 Smoking pack-years: 8.50 Smoking status: Current every day smoker Tobacco type: cigarettes Alcohol intake: current Drinks per week: 4 Alcohol use details: States she drinks 1 pint a week Substance use: current Substance use type: marijuana Other substance usage details: 1 pint of Rum/week; last intake 03/25/24 Last use: 10/31/23 Do You Feel Safe in your Home?: Yes Lack of Transportation: No Lack of Food: Never True Current Housing: I Have Housing Concerned About Future Housing: No Difficulty Paying Gas/Electric Bills: No Difficulty Paying for Meds: No Currently Unemployed: No Education: High School Diploma/GED Difficulty w/ Childcare or Family Care: No Living arrangements: with family Additional living arrangements comments: with 7 year old son and fianc? Occupation/Education: unemployed Spiritual care concerns: No Agree to blood products: Yes Meds Home Medications and Allergies Home Medications Medication Instructions Recorded Confirmed Type duloxetine 60 mg capsule,delayed 60 mg PO QAM #30 caps 02/08/24 05/21/24 Rx release ondansetron 8 mg disintegrating 8 mg PO Q8H PRN nausea and 02/08/24 05/21/24 Rx tablet vomiting #90 tabs ferrous sulfate 325 mg (65 mg 325 mg PO BID 03/28/24 05/21/24 History iron) tablet,delayed release folic acid 1 mg tablet 1 mg feeding tube DAILY 03/28/24 05/21/24 History megestrol 20 mg tablet 20 mg feeding tube QAM 03/28/24 05/21/24 History multivitamin with folic acid 400 1 tablet PO QAM 03/28/24 05/21/24 History mcg tablet (Thera) thiamine HCl (vitamin B1) 100 mg 100 mg feeding tube DAILY 03/28/24 05/21/24 History tablet trazodone 50 mg tablet 50 mg feeding tube HS PRN insomnia 03/28/24 05/21/24 History vitamin B complex (Vitamins B 1 cap feeding tube QAM 03/28/24 05/21/24 History Complex capsule) potassium chloride 10 mEq 10 meq PO DAILY #30 caps 03/29/24 05/21/24 Rx capsule,extended release buprenorphine 5 mcg/hour weekly 1 patch transdermal Q7D chronic 05/14/24 05/21/24 Rx transdermal patch pain 28 days #4 ea Allergies Allergy/AdvReac Type Severity Reaction Status Date / Time latex Allergy Rash Verified 05/21/24 13:27 Vital Signs Vital Signs - 24 hr 05/21/24 13:21 05/21/24 13:36 05/21/24 13:45 Temperature 97.6 F Pulse Rate 139 H 120 H 105 H Respiratory Rate 18 21 H 22 H Blood Pressure 137/92 H 129/96 H Pulse Oximetry 99 99 100 Oxygen Delivery Room Air 05/21/24 13:46 05/21/24 14:02 05/21/24 14:15 Temperature Pulse Rate 97 99 117 H Respiratory Rate 25 H 25 H 20 Blood Pressure 132/93 H Pulse Oximetry 100 100 98 Oxygen Delivery 05/21/24 14:30 05/21/24 14:31 05/21/24 14:45 Temperature Pulse Rate 100 104 H 90 Respiratory Rate 21 H 15 19 Blood Pressure 130/88 124/87 Pulse Oximetry 100 100 100 Oxygen Delivery 05/21/24 14:46 05/21/24 15:00 05/21/24 15:01 Temperature Pulse Rate 88 86 Respiratory Rate 20 18 18 Blood Pressure 119/79 Pulse Oximetry 100 100 100 Oxygen Delivery Exam Narrative: General: well appearing, appears stated age. HEENT: normocephalic, atraumatic. Mucous membranes moist. EOMI, PERRLA, bilateral sclera anicteric, no conjunctival injection. Neck supple without JVD, lymphadenopathy, or bruit. Respiratory: clear to ascultation bilaterally. No rales/rhonic/wheezes. Cardiovascular: Regular rate and rhythm, normal S1-S2 upon ascultation. No murmurs, rubs, or clicks. PMI is nondisplaced, capillary refill less than 3 second. Abdomen: Soft, G-tube, no pulsatile masses, nondistended and nontender. No rebound, no guarding. No CVA tenderness, no hepatosplenomegaly. Bowel sounds present to all four quadrants. No high pitch or tinkling sounds, resonant to percussion. Extremities: No cyanosis, clubbing, or edema present. Pulses are palpable 2/2. increased weakness from baseline Neuro: Alert and orientated x 4. PERRLA. Cranial nerves 2-12 intact without focal deficit. Skin: Warm, dry, and intact, without rash, erythema, or lesion. Psych: pleasant, cooperative, normal speech, normal affect, no hallucinations, no dysarthia H&P: Results Labs Labs: Short CBC 05/21/24 Range/Units 13:43 WBC 4.0 L (4.5-10.0) K/mm3 Hgb 13.3 D (12.0-15.0) g/dL Hct 36.6 L (37.0-47.0) % Plt Count 166 D (150-375) k/mm3 BMP 05/21/24 13:43 Sodium 134 L Potassium 2.3 L* Chloride 87 L Carbon Dioxide 29 BUN < 2 L Creatinine 0.60 L Glucose 136 H Calcium 8.5 Cardiac Enzymes 05/21/24 Range/Units 13:43 Troponin I < 0.012 (0.000-0.034) ng/mL Liver Function 05/21/24 Range/Units 13:43 Total Bilirubin 1.3 (0.2-1.3) mg/dL AST 303 H (14-36) U/L ALT 101 H (6-35) U/L Alkaline Phosphatase 196 H (38-126) U/L Albumin 4.3 (3.5-5.1) g/dL Urine 05/21/24 Range/Units 14:53 Urine Color Dark yellow (Yellow) Urine Appearance Cloudy H (Clear) Urine pH 5.5 (5.0-9.0) Ur Specific [place] 1.023 (1.001-1.035) Urine Protein 2+ H (Negative) mg/dL Urine Glucose (UA) Negative (Negative) mg/dL Assessment and Plan Assessment and plan (1) Acute hypokalemia: Code(s): E87.6 - Hypokalemia Status: Acute Assessment and Plan: potassium 2.3 on admission given 40 mEq in the ED repeat potassium level repeat labs in morning (2) Hypomagnesemia: Code(s): E83.42 - Hypomagnesemia Status: Acute Assessment and Plan: on admission 1.3 given 4 g in the emergency room repeat labs in the morning (3) Colitis: Code(s): K52.9 - Noninfective gastroenteritis and colitis, unspecified Status: Acute Assessment and Plan: GI consulted, will see in a.m. IV Zosyn started IV fluids for hydration (4) Opioid dependence with withdrawal: Code(s): F11.23 - Opioid dependence with withdrawal Status: Acute Assessment and Plan: patient has chronic nausea vomiting could have been exacerbated by acute withdrawal of opioids patient started on [place] restarted home buprenorphine patch patient recommended follow-up for pain management as soon as she leaves the hospital (5) Length-dependent peripheral neuropathy: Code(s): G62.9 - Polyneuropathy, unspecified Status: Acute Assessment and Plan: continue Cymbalta patient was offered PT and OT declining at this time as she is hoping her weakness will improve with hydration (6) Nicotine abuse: Code(s): Z72.0 - Tobacco use Status: Acute Assessment and Plan: nicotine patch ordered (7) UTI (urinary tract infection): Code(s): N39.0 - Urinary tract infection, site not specified Status: Acute Assessment and Plan: cultures and sensitivities pending on Zosyn (8) Avoidant/restrictive food intake disorder: Code(s): F50.82 - Avoidant/restrictive food intake disorder Status: Acute Assessment and Plan: chronic G-tube patient on tube feeding at home for supplemental nourishment, she does not want to started at this time patient started on clear liquid diet, advanced as tolerated Quality VTE Prophylaxis VTE prophylaxis: mechanical ordered Hospitalist MIPS Advance Care Plan I have confirmed that the patient's Advanced Care Plan is present, code status is documented, or surrogate decision maker is listed in patient medical record.: Yes Medication Reconciliation I have utilized all available resources to obtain, update and review the patients current medications (includes all prescriptions, OTC, herbals, cannabis, and nutritional supplements).: Yes
--- NOTE | 2024-05-21 16:41 | PC.NURSE ---
unable to obtain 2nd set of blood cultures due to pt not able to tolerate, said huts too much, stop .
[2024-05-21 16:49] LABS: Reflex Lactic Acid Yes or No Add Lactic
[2024-05-21] MEDS: MORPHINE SULFATE (*CRX) 2 MG/ML INJ IV PUSH ×2 (17:35→20:51)
[2024-05-21] MEDS: ONDANSETRON INJ 4 MG/2 ML VIAL IV PUSH (17:35)
[2024-05-21 17:46] LABS: Lactic Acid 4.4 mmol/L (0.7-2.0)
[2024-05-21] MEDS: SODIUM CHLORIDE 0.9% IV 1,000 ML 125 ML IV CONT ×2 (19:06→20:47)
--- NOTE | 2024-05-21 19:47 | ADMGEN ---
This patient, Ester León, was admitted to Medical Room 249-01. Patient/family oriented to hospital policies and general routines including ID bracelet, bed and alarms, visiting hours, pain management, procedures, bathroom and other care routines, personal items, smoking policy, room service/diet, and visiting hours. Information on how to activate the Rapid Response Team has been discussed. Patient/Family are encouraged to report perceived risks to care and to ask questions if they do not understand what they are told or what they should do.
[2024-05-21 20:13] LABS: Lactic Acid Reflex 4.6 mmol/L (0.7-2.0)
[2024-05-21] MEDS: PIPERACILLN/TAZ 3.375GM/NS50ML 3.375 GM/50 ML BAG IVPB ×2 (20:47→23:58)
[2024-05-21] MEDS: traZODone HCL 50 MG TABLET FEED TUBE (20:47)
[2024-05-21] MEDS: NICOTINE (*PBKC) 21 MG PATCH 1 PATCH TRANSDERM (21:39)
[2024-05-21 23:28] LABS: Potassium 2.4 mmol/L (3.4-5.0)
[2024-05-21] MEDS: POTASSIUM CHLORIDE 20 MEQ PACKET (FOR LIQUID) 40 MEQ FEED TUBE (23:58)
[2024-05-22] VITALS (13 sets, daily range): BP systolic 105–111; BP diastolic 66–76; PULSE 86–119; RESP 18–24; TEMP 36.1–36.9; O2SAT 100; BMI 16.8
[2024-05-22] MEDS: POTASSIUM CHLORIDE INJ 40 MEQ in SODIUM CHLORIDE 0.9% IV 500 ML 130 MEQ IVPB (00:53)
[2024-05-22] MEDS: MORPHINE SULFATE (*CRX) 2 MG/ML INJ IV PUSH ×3 (01:20→10:06)
[2024-05-22] MEDS: PIPERACILLN/TAZ 3.375GM/NS50ML 3.375 GM/50 ML BAG IVPB ×3 (05:11→18:01)
[2024-05-22 06:22] LABS: Basophils Percent Auto 0.7 % (0.2-1.2); Eosinophils Percent Auto 0.9 % (0-4.4); Hematocrit 28.2 % (37.0-47.0); Hemoglobin 9.5 g/dL (12.0-15.0); Immature Granulocyte Absolute 0.01 K/mm3 (0.00-0.031); Immature Granulocyte Percent A 0.2 % (0-0.5); Immature Platelet Fraction Pct 8.6 % (0.9-11.2); Lymphocytes Absolute Auto 0.85 K/mm3 (0.9-3.2); Mean Corpuscular HGB Conc 33.7 g/dl (32-36); Mean Corpuscular Hemoglobin 37.4 pg (26-34); Mean Platelet Volume 11.3 fl (7.4-10.4); Monocytes Absolute Auto 0.1 K/mm3 (0.1-0.6); Monocytes Percent Auto 3.3 % (2.6-8.5); Neutrophils Absolute Auto 3.2 K/mm3 (1.3-6.7); Neutrophils Percent Auto 74.9 % (45.5-73.1); Platelet Count Result 104 k/mm3 (150-375); Red Blood Count 2.54 M/mm3 (4.2-5.4); Red Cell Distribution Width 14.3 % (11.5-14.5); White Blood Count 4.3 K/mm3 (4.5-10.0)
[2024-05-22 06:31] LABS: Alanine Aminotransferase 87 U/L (6-35); Albumin Level 2.6 g/dL (3.5-5.1); Alkaline Phosphatase 119 U/L (38-126); Anion Gap 8 mmol/L (4-12); Aspartate Amino Transferase 376 U/L (14-36); Bilirubin,Total 1.4 mg/dL (0.2-1.3); Calcium 6.6 mg/dL (8.4-10.2); Carbon Dioxide 23 mmol/L (22-30); Chloride 103 mmol/L (98-107); Estimated CRCL calculation 85 ml/min; Estimated Glomerular Filt Rate > 60; Glucose 84 mg/dL (65-110); Magnesium 2.1 mg/dL (1.6-2.3); Phosphorus 1.6 mg/dL (2.5-4.5); Potassium 3.6 mmol/L (3.4-5.0); Sodium 134 mmol/L (137-145)
[2024-05-22 06:38] LABS: Blood Urea Nitrogen < 2 mg/dL (7-17)
[2024-05-22 06:52] LABS: Hypochromasia 1+; Macrocytosis 1+ (NORMAL); Platelet Estimate Slightly Decreased (Adequate); Schistocytes None Seen
[2024-05-22] MEDS: POTASSIUM/PHOSPHORUS/SODIUM 1.5 GM PACKET 1 PACKET PO (08:07)
[2024-05-22] MEDS: CALCIUM GLUC 1,000 MG/NS 50 ML 1,000 MG/50 ML BAG 100 MG IVPB (08:08)
[2024-05-22] MEDS: THIAMINE HCL 100 MG TABLET FEED TUBE (08:53)
[2024-05-22] MEDS: NICOTINE (*PBKC) 21 MG PATCH 1 PATCH TRANSDERM (08:54)
[2024-05-22] MEDS: MEGESTROL ACETATE (*CHEMO) 20 MG TABLET FEED TUBE (08:54)
[2024-05-22] MEDS: DULoxetine HCL 60 MG CAPSULE.DR PO (08:54)
[2024-05-22] MEDS: FOLIC ACID 1 MG TABLET FEED TUBE (08:54)
[2024-05-22] MEDS: ONDANSETRON INJ 4 MG/2 ML VIAL IV PUSH ×2 (08:54→18:01)
[2024-05-22 09:01] LABS: Folic Acid 15.9 ng/mL (2.76->20)
--- NOTE | 2024-05-22 11:13 | PM.CNGS ---
Assessment and Plan Assessment and plan (1) Colitis: Code(s): K52.9 - Noninfective gastroenteritis and colitis, unspecified Status: Acute Assessment and Plan: CT scan showing wall thickening of the rectosigmoid, consistent with colitis. She also presented with lactic acidosis. Her lactic acid is coming down from 7 to 4.6. Her abdominal pain has improved since admission. No peritoneal signs on exam and she is hemodynamically stable. We would recommend continuing medical management with IV antibiotics and close monitoring. Would recommend GI consultation. No indication for emergent surgical intervention at this time. Will continue to follow with serial labs and abdominal exams. (2) Lactic acidosis: Code(s): E87.20 - Acidosis, unspecified Status: Acute Assessment and Plan: See above. (3) Pancytopenia: Code(s): D61.818 - Other pancytopenia Status: Acute Assessment and Plan: In review of her labs, this appears chronic. Hgb did drop from 13.3 to 9.5. She denies any blood in her stools. Possibly dilutional, continue to trend labs. (4) Electrolyte abnormality: Code(s): E87.8 - Other disorders of electrolyte and fluid balance, not elsewhere classified Status: Acute Assessment and Plan: Multiple electrolyte abnormalities, continue to replace as needed and follow labs. (5) Severe protein-calorie malnutrition: Code(s): E43 - Unspecified severe protein-calorie malnutrition Status: Acute Assessment and Plan: Okay to advance diet as tolerated and add her QID tube feedings if needed. (6) Opioid dependence with withdrawal: Code(s): F11.23 - Opioid dependence with withdrawal Status: Acute Assessment and Plan: Chronic pain from peripheral neuropathy and follows with pain management as an outpatient. She is currently on a buprenorphine patch that is changed weekly and had last removed this 4 days ago without any refills. This was resumed today. (7) UTI (urinary tract infection): Code(s): N39.0 - Urinary tract infection, site not specified Status: Acute Assessment and Plan: UA abnormal, urine cx pending. Continue antibiotics per primary service. Plan I have discussed the patient's case and plan of care with Dr. Velez. Thank you for allowing us to see the patient in consultation and we will continue to follow along with you. History of Present Illness Consult details Consult date: 05/22/24 Reason for consult: other (Colitis) Requesting physician: Sofia Conrad APRN Narrative: This is a 34-year-old woman with PMH of severe protein calorie malnutrition d/t suspected restrictive food intake disorder status post PEG tube placement in October, anxiety,depression, and peripheral neuropathy with long-term use of opioids. We have been asked to see the patient in surgical consultation for colitis. She reports having chronic issues of nausea and vomiting. Over the past 2-3 days, this has progressively gotten worse. She typically is able to tolerate tube feeding for supplementation about 4 times per day. The last 2 days, she has not been able to keep anything down. She would vomit any oral intake, tube feedings, and even water. She denies bloody or coffee-ground emesis. She also reports chronic diarrhea, which has been worse recently. She has dealt with loose stools for years. She has been evaluated by GI but denies ever having a colonoscopy in the past. The past two days, she has had innumerous amounts of diarrhea. She reports having a liquid BM about every 20-30 minutes. She denies any recent antibiotic use or close contacts with similar symptoms. While the vomiting and diarrhea are her main complaints, she also mentions having abdominal pain intermittently. She states sometimes it is in the RLQ and at other times in the left mid abdomen. She came into the ED yesterday as she could not keep anything down and was concerned about dehydration. In the ED, labs significant for WBC count 4.3, sodium 134, potassium 2.3, chloride 87, anion gap 18, lactic acid 7.0, magnesium 1.3, AST 303, ALT 101, alk-phos 196, troponin negative. CT scan of the abdomen and pelvis shows wall thickening of the rectosigmoid colon, consistent with colitis. She was admitted and started on IV antibiotics. She denies any history of abdominal surgery. Review of Systems Review of Systems: All systems reviewed & are unremarkable except as noted in HPI and below PMFSH Past Medical History Medical History Avoidant/restrictive food intake disorder Cannabis abuse Depression with anxiety Mitral valve prolapse Surgical History Surgical History History of percutaneous endoscopic gastrostomy Family History Family History Mother Heart attack Grandparent Cancer Social History Social History Social History: Surrogate medical decision maker: Jorge Luis Centeno, significant other. Code status: Full code. Smoking packs per day: 0.5 Smoking cigarettes per day: 10.0 Years smoked: 17 Smoking pack-years: 8.50 Smoking status: Current every day smoker Tobacco type: cigarettes Alcohol intake: current Drinks per week: 4 Alcohol use details: States she drinks 1 pint a week Substance use: current Substance use type: marijuana Other substance usage details: 1 pint of Rum/week; last intake 03/25/24 Last use: 10/31/23 Do You Feel Safe in your Home?: Yes Lack of Transportation: No Lack of Food: Never True Current Housing: I Have Housing Concerned About Future Housing: No Difficulty Paying Gas/Electric Bills: No Difficulty Paying for Meds: No Currently Unemployed: No Education: High School Diploma/GED Difficulty w/ Childcare or Family Care: No Living arrangements: with family Additional living arrangements comments: with 7 year old son and fianc? Occupation/Education: unemployed Spiritual care concerns: No Agree to blood products: Yes Meds Home Medications and Allergies Home Medications Medication Instructions Recorded Confirmed Type duloxetine 60 mg capsule,delayed 60 mg PO QAM #30 caps 02/08/24 05/21/24 Rx release ondansetron 8 mg disintegrating 8 mg PO Q8H PRN nausea and 02/08/24 05/21/24 Rx tablet vomiting #90 tabs ferrous sulfate 325 mg (65 mg 325 mg PO BID 03/28/24 05/21/24 History iron) tablet,delayed release folic acid 1 mg tablet 1 mg feeding tube DAILY 03/28/24 05/21/24 History megestrol 20 mg tablet 20 mg feeding tube QAM 03/28/24 05/21/24 History multivitamin with folic acid 400 1 tablet PO QAM 03/28/24 05/21/24 History mcg tablet (Thera) thiamine HCl (vitamin B1) 100 mg 100 mg feeding tube DAILY 03/28/24 05/21/24 History tablet trazodone 50 mg tablet 50 mg feeding tube HS PRN insomnia 03/28/24 05/21/24 History vitamin B complex (Vitamins B 1 cap feeding tube QAM 03/28/24 05/21/24 History Complex capsule) potassium chloride 10 mEq 10 meq PO DAILY #30 caps 03/29/24 05/21/24 Rx capsule,extended release buprenorphine 5 mcg/hour weekly 1 patch transdermal Q7D chronic 05/14/24 05/21/24 Rx transdermal patch pain 28 days #4 ea Allergies Allergy/AdvReac Type Severity Reaction Status Date / Time latex Allergy Rash Verified 05/21/24 13:27 Vital Signs Vital Signs - 24 hr 05/21/24 13:21 05/21/24 13:36 05/21/24 13:45 Temperature 97.6 F Pulse Rate 139 H 120 H 105 H Respiratory Rate 18 21 H 22 H Blood Pressure 137/92 H 129/96 H Pulse Oximetry 99 99 100 Oxygen Delivery Room Air 05/21/24 13:46 05/21/24 14:02 05/21/24 14:15 Temperature Pulse Rate 97 99 117 H Respiratory Rate 25 H 25 H 20 Blood Pressure 132/93 H Pulse Oximetry 100 100 98 Oxygen Delivery 05/21/24 14:30 05/21/24 14:31 05/21/24 14:45 Temperature Pulse Rate 100 104 H 90 Respiratory Rate 21 H 15 19 Blood Pressure 130/88 124/87 Pulse Oximetry 100 100 100 Oxygen Delivery 05/21/24 14:46 05/21/24 15:00 05/21/24 15:01 Temperature Pulse Rate 88 86 Respiratory Rate 20 18 18 Blood Pressure 119/79 Pulse Oximetry 100 100 100 Oxygen Delivery 05/21/24 15:45 05/21/24 16:13 05/21/24 16:15 Temperature Pulse Rate 100 99 100 Respiratory Rate 19 23 H 20 Blood Pressure Pulse Oximetry 100 100 100 Oxygen Delivery 05/21/24 17:30 05/21/24 20:16 05/21/24 20:00 Temperature 99.1 F Pulse Rate 99 99 Respiratory Rate 18 18 Blood Pressure 111/71 Pulse Oximetry 100 100 Oxygen Delivery Room Air Room Air 05/22/24 05:02 05/21/24 20:00 05/22/24 00:00 Temperature 98.5 F Pulse Rate 104 H 99 96 Respiratory Rate 18 Blood Pressure 105/71 Pulse Oximetry 100 Oxygen Delivery 05/22/24 04:00 05/22/24 08:37 Temperature Pulse Rate 96 Respiratory Rate Blood Pressure Pulse Oximetry 100 Oxygen Delivery Room Air Exam Const: General: comfortable and no acute distress Nutritional Appearance: malnourished and thin Orientation/consciousness: patient oriented x3 HENMT: Head: normocephalic and atraumatic Ears: hearing grossly normal bilaterally Mouth: Yes moist mucous membranes Eyes: General: appearance normal, both eyes and all related structures Pupils: Equal, round and reactive pupils present Neck: Neck: normal visual inspection and full ROM Resp: Effort & Inspection: no respiratory distress Auscultation: clear to auscultation bilaterally Cardio: Rate: regular rate Rhythm: regular rhythm Peripheral pulses: Peripheral pulses 2+ throughout GI: Inspection: non-distended and no visible herniation GI Palp: Yes Soft to palpation, Yes Tenderness to palpation present (GI) (Mild tenderness in the RLQ, LLQ, and epigastric area), No Guarding due to palpation present (GI), Yes No hepatosplenomegaly present and No Rebound tenderness present Percussion: Yes normal to percussion Auscultation: normal bowel sounds Skin: General skin exam: normal color Neuro: General: moves all extremities and no focal motor deficits Speech: normal speech Motor exam (neuro): 5/5 motor strength present throughout Extrem: General: normal to inspection and no edema Psych: Mental Status: mental status grossly normal Attitude: cooperative Insight: Good insight present (Psych) Judgement: Good judgement present (Psych) Results Labs 05/22/24 05:53 05/22/24 05:53 Labs: Abnormal lab results 05/21/24 05/21/24 05/21/24 Range/Units 13:43 14:53 17:16 WBC 4.0 L (4.5-10.0) K/mm3 RBC 3.60 L (4.2-5.4) M/mm3 Hgb (12.0-15.0) g/dL Hct 36.6 L (37.0-47.0) % MCV 101.7 H (80-100) fl MCH 36.9 H (26-34) pg MCHC 36.3 H (32-36) g/dl Plt Count (150-375) k/mm3 MPV (7.4-10.4) fl Neut % (Auto) 79.5 H (45.5-73.1) % Lymph % (Auto) 14.1 L (18.3-44.2) % Baso % (Auto) 1.3 H (0.2-1.2) % Lymph # (Auto) 0.56 L (0.9-3.2) K/mm3 Sodium 134 L (137-145) mmol/L Potassium 2.3 L* (3.4-5.0) mmol/L Chloride 87 L (98-107) mmol/L Anion Gap 18 H (4-12) mmol/L BUN < 2 L (7-17) mg/dL Creatinine 0.60 L (0.7-1.0) mg/dL Glucose 136 H (65-110) mg/dL Lactic Acid 7.0 H* 4.4 H* (0.7-2.0) mmol/L Calcium (8.4-10.2) mg/dL Phosphorus (2.5-4.5) mg/dL Magnesium 1.3 L (1.6-2.3) mg/dL Total Bilirubin (0.2-1.3) mg/dL AST 303 H (14-36) U/L ALT 101 H (6-35) U/L Alkaline Phosphatase 196 H (38-126) U/L Total Protein (6.3-8.2) g/dL Albumin (3.5-5.1) g/dL Urine Appearance Cloudy H (Clear) Urine Protein 2+ H (Negative) mg/dL Urine Ketones Trace H (Negative) mg/dL Urine Bilirubin 2+ H (Negative) Leukocyte Esterase Rfl 1+ H (Negative) BECKY/UL Urine RBC 3-5 H (0-2) /hpf Urine WBC 11-20 H (0-3) /hpf 05/21/24 05/21/24 05/22/24 Range/Units 19:53 22:22 05:53 WBC 4.3 L (4.5-10.0) K/mm3 RBC 2.54 L (4.2-5.4) M/mm3 Hgb 9.5 L D (12.0-15.0) g/dL Hct 28.2 L (37.0-47.0) % MCV 111.0 H D (80-100) fl MCH 37.4 H (26-34) pg MCHC (32-36) g/dl Plt Count 104 L (150-375) k/mm3 MPV 11.3 H (7.4-10.4) fl Neut % (Auto) 74.9 H (45.5-73.1) % Lymph % (Auto) (18.3-44.2) % Baso % (Auto) (0.2-1.2) % Lymph # (Auto) 0.85 L (0.9-3.2) K/mm3 Sodium 134 L (137-145) mmol/L Potassium 2.4 L* (3.4-5.0) mmol/L Chloride (98-107) mmol/L Anion Gap (4-12) mmol/L BUN < 2 L (7-17) mg/dL Creatinine 0.50 L (0.7-1.0) mg/dL Glucose (65-110) mg/dL Lactic Acid 4.6 H* (0.7-2.0) mmol/L Calcium 6.6 L (8.4-10.2) mg/dL Phosphorus 1.6 L (2.5-4.5) mg/dL Magnesium (1.6-2.3) mg/dL Total Bilirubin 1.4 H (0.2-1.3) mg/dL AST 376 H (14-36) U/L ALT 87 H (6-35) U/L Alkaline Phosphatase (38-126) U/L Total Protein 5.0 L (6.3-8.2) g/dL Albumin 2.6 L (3.5-5.1) g/dL Urine Appearance (Clear) Urine Protein (Negative) mg/dL Urine Ketones (Negative) mg/dL Urine Bilirubin (Negative) Leukocyte Esterase Rfl (Negative) BECKY/UL Urine RBC (0-2) /hpf Urine WBC (0-3) /hpf Diabetes panel 05/21/24 05/21/24 05/22/24 Range/Units 13:43 22:22 05:53 Sodium 134 L 134 L (137-145) mmol/L Potassium 2.3 L* 2.4 L* 3.6 (3.4-5.0) mmol/L Chloride 87 L 103 (98-107) mmol/L Carbon Dioxide 29 23 (22-30) mmol/L BUN < 2 L < 2 L (7-17) mg/dL Creatinine 0.60 L 0.50 L (0.7-1.0) mg/dL Glucose 136 H 84 (65-110) mg/dL Calcium 8.5 6.6 L (8.4-10.2) mg/dL AST 303 H 376 H (14-36) U/L ALT 101 H 87 H (6-35) U/L Alkaline Phosphatase 196 H 119 (38-126) U/L Total Protein 8.0 5.0 L (6.3-8.2) g/dL Albumin 4.3 2.6 L (3.5-5.1) g/dL Calcium panel 05/21/24 05/22/24 Range/Units 13:43 05:53 Calcium 8.5 6.6 L (8.4-10.2) mg/dL Phosphorus 1.6 L (2.5-4.5) mg/dL Albumin 4.3 2.6 L (3.5-5.1) g/dL Pituitary panel 05/21/24 05/21/24 05/22/24 Range/Units 13:43 22:22 05:53 Sodium 134 L 134 L (137-145) mmol/L Potassium 2.3 L* 2.4 L* 3.6 (3.4-5.0) mmol/L Chloride 87 L 103 (98-107) mmol/L Carbon Dioxide 29 23 (22-30) mmol/L BUN < 2 L < 2 L (7-17) mg/dL Creatinine 0.60 L 0.50 L (0.7-1.0) mg/dL Glucose 136 H 84 (65-110) mg/dL Calcium 8.5 6.6 L (8.4-10.2) mg/dL Adrenal panel 05/21/24 05/21/24 05/22/24 Range/Units 13:43 22:22 05:53 Sodium 134 L 134 L (137-145) mmol/L Potassium 2.3 L* 2.4 L* 3.6 (3.4-5.0) mmol/L Chloride 87 L 103 (98-107) mmol/L Carbon Dioxide 29 23 (22-30) mmol/L BUN < 2 L < 2 L (7-17) mg/dL Creatinine 0.60 L 0.50 L (0.7-1.0) mg/dL Glucose 136 H 84 (65-110) mg/dL Calcium 8.5 6.6 L (8.4-10.2) mg/dL Total Bilirubin 1.3 1.4 H (0.2-1.3) mg/dL AST 303 H 376 H (14-36) U/L ALT 101 H 87 H (6-35) U/L Alkaline Phosphatase 196 H 119 (38-126) U/L Total Protein 8.0 5.0 L (6.3-8.2) g/dL Albumin 4.3 2.6 L (3.5-5.1) g/dL All other labs normal. Imaging Additional studies: ITS Impressions Abdomen/Pelvis CT 05/21/24 15:31 IMPRESSION: 1. Wall thickening of the rectosigmoid, consistent with colitis.
--- NOTE | 2024-05-22 11:53 | P.PNIM_ITS ---
Progress Note: A&P Assessment and Plan (1) Colitis: Code(s): K52.9 - Noninfective gastroenteritis and colitis, unspecified Status: Acute Assessment and Plan: Patient presents with nausea, vomiting and abdominal pain. CT A/P showing wall thickening of the rectosigmoid area c/w colitis. WBC 4K. Lactic acid 7.0 -> 4.6. BCx NGTD. UCx pending. Started on Zosyn. Still with diarrhea. Stool studies ordered. GenSurg consulted. [place] diet could be advanced. Hungry today so will resume diet and restart TF (discussed with dietary) (2) Electrolyte abnormality: Code(s): E87.8 - Other disorders of electrolyte and fluid balance, not elsewhere classified Status: Acute Assessment and Plan: Potassium -- 2.3 on admission treated with 40 mEq in the ED Repeat potassium level still low and replaced again. Potassium this morning is normal. Probably related to poor oral intake and n/v. Mag -- level was 1.3 on admission and given 4 g in the emergency room Repeat Mag this morning is normal Phos -- Level normal on admission but lower today. Replace. monitor for refeeding syndrome. Calcium -- level at 6.6 with albumin 2.6. Corrected at about 8. Replace once and follow (3) Opioid dependence with withdrawal: Code(s): F11.23 - Opioid dependence with withdrawal Status: Acute Assessment and Plan: Patient with chronic opioid use. She is normally on a pain patch with which was removed on Tuesday and she had no more refills. Her symptoms could be related to acute withdrawal from opioids Patient resumed on her home buprenorphine patch. Brady and Morphine IV available prn (only has required Morphine since admission) Patient recommended to follow-up for pain management as soon as she leaves the [facility] Stop Morphine and use oral analgesics prn pain. (4) Length-dependent peripheral neuropathy: Code(s): G62.9 - Polyneuropathy, unspecified Status: Acute Assessment and Plan: Stable. Patient was offered PT and OT but declined at this time Continue Cymbalta (5) UTI (urinary tract infection): Code(s): N39.0 - Urinary tract infection, site not specified Status: Acute Assessment and Plan: UA is consistent with possible UTI. UCx collected. Zosyn started. UCx pending. Follow up on UCx results. (6) Avoidant/restrictive food intake disorder: Code(s): F50.82 - Avoidant/restrictive food intake disorder Status: Acute Assessment and Plan: Patient with failure to thrive requiring chronic G-tube. She takes TF sparingly. As above. (7) Lactic acidosis: Code(s): E87.20 - Acidosis, unspecified Status: Acute Assessment and Plan: As above. Possibly related to colitis. UDS negative. Not been elevated in the past. No HoTN noted here. She denies heavy alcohol use. HIV negative earlier this year. Not on nebs. Not diabetic. Could be related to underlying liver disease or from severe malnutrition. Lactic was 7 with AG 18 but normal serum bicarb. AG closed. She remains on IV fluids. Follow (8) Pancytopenia: Code(s): D61.818 - Other pancytopenia Status: Acute Assessment and Plan: Leukopenia noted in the past and persistent here. HIV negative in October. TCP noted and was as low as 70-80K in January. Normal on admisison but has dropped to 104K. Stop Lovenox since probably will continue to drop. Hgb has been low at times but mostly 11-12 range. Hgb 13.3 but dropped to 9.5 today. Macrocytic anemia. No evidence of acute blood loss. B12/folate normal. Suspect related to underlying liver disease. Copper normal in October. Iron studies in January showing low TIBC c/w anemia of chronic disease or from malnutrtion. Monitor and transfuse as needed. (9) Nicotine abuse: Code(s): Z72.0 - Tobacco use Status: Acute Assessment and Plan: Nicotine patch ordered. (10) Elevated LFTs: Code(s): R79.89 - Other specified abnormal findings of blood chemistry Status: Acute Assessment and Plan: AST up to 376 and ALT 87. She states she only drinks on occasion but has a hx of drink a pint per week (per HnP). Viral hepatitis negative in January. CT Abd with contrast here showing normal appearing liver. Consider alcoholic hepatitis. Monitor LFTs. CIWA protocol. Continue Thiamine/Folate. Plan DVT Prophylaxis - SCDs Code status - Full Subjective Date/time seen: 05/22/24 11:53 Interval history: 34yo female with depression, anxiety and anorexia requiring GTube here for nausea, vomiting and abdominal pain. Patient is feeling better today. Still with abdominal pain. She has had the feeding tube for about 6 months. She feels hungry today. Denies alcohol use. No history of liver disease. Still having diarrhea. Per dietitian, patient taking tube feedings intermittently at home. Exam Narrative: AF 98.5 105/71 104 18 100% ra Gen - NARD sitting up at the side of the bed Chest - CTA bilaterally, nml RR CV - RRR S1/S2. Tele showing episodes of sinus tach Abd - diffuse abd pain with voluntary guarding. +BS. GTube site dressing clean and dry Ext - No pedal edema Psych - Nml mood and affect Skin - Warm and dry Objective Data Vital Signs Vital Signs: Vital Signs - 24 hr 05/21/24 13:21 05/21/24 13:36 05/21/24 13:45 Temperature 97.6 F Pulse Rate 139 H 120 H 105 H Respiratory Rate 18 21 H 22 H Blood Pressure 137/92 H 129/96 H Pulse Oximetry 99 99 100 Oxygen Delivery Room Air 05/21/24 13:46 05/21/24 14:02 05/21/24 14:15 Temperature Pulse Rate 97 99 117 H Respiratory Rate 25 H 25 H 20 Blood Pressure 132/93 H Pulse Oximetry 100 100 98 Oxygen Delivery 05/21/24 14:30 05/21/24 14:31 05/21/24 14:45 Temperature Pulse Rate 100 104 H 90 Respiratory Rate 21 H 15 19 Blood Pressure 130/88 124/87 Pulse Oximetry 100 100 100 Oxygen Delivery 05/21/24 14:46 05/21/24 15:00 05/21/24 15:01 Temperature Pulse Rate 88 86 Respiratory Rate 20 18 18 Blood Pressure 119/79 Pulse Oximetry 100 100 100 Oxygen Delivery 05/21/24 15:45 05/21/24 16:13 05/21/24 16:15 Temperature Pulse Rate 100 99 100 Respiratory Rate 19 23 H 20 Blood Pressure Pulse Oximetry 100 100 100 Oxygen Delivery 05/21/24 17:30 05/21/24 20:16 05/21/24 20:00 Temperature 99.1 F Pulse Rate 99 99 Respiratory Rate 18 18 Blood Pressure 111/71 Pulse Oximetry 100 100 Oxygen Delivery Room Air Room Air 05/22/24 05:02 05/21/24 20:00 05/22/24 00:00 Temperature 98.5 F Pulse Rate 104 H 99 96 Respiratory Rate 18 Blood Pressure 105/71 Pulse Oximetry 100 Oxygen Delivery 05/22/24 04:00 05/22/24 08:37 Temperature Pulse Rate 96 Respiratory Rate Blood Pressure Pulse Oximetry 100 Oxygen Delivery Room Air Intake/Output Intake/Output: Intake & Output 05/19/24 05/20/24 05/21/24 05/22/24 23:59 23:59 23:59 23:59 Intake Total 1810.4 1250 Balance 1810.4 1250 Meds/Results Medications: Active Medications Generic Name Dose Route Start Last Admin Trade Name Freq PRN Reason Stop Dose Admin Hydrocodone Bitart/Acetaminophen 1 tab 05/21/24 20:15 Hydrocodone/Acetaminophen (*Crx) 5-325 Mg Tablet PO Q4H PRN Pain Rated 4-6 Hydrocodone Bitart/Acetaminophen 1 tab 05/21/24 20:15 Hydrocodone/Acetaminophen (*Crx) 10-325 Mg Tablet PO Q4H PRN Pain Rated 7-10 Duloxetine HCl 60 mg 05/22/24 09:00 05/22/24 08:54 Duloxetine Hcl 60 Mg Capsule. PO 60 mg QAM JU Administration Enoxaparin Sodium 40 mg 05/22/24 09:00 05/22/24 09:31 Enoxaparin 40 Mg/0.4 Ml Syringe SUB-Q Not Given DAILY JU Folic Acid 1 mg 05/22/24 09:00 05/22/24 08:54 Folic Acid 1 Mg Tablet FEED TUBE 1 mg DAILY JU Administration Sodium Chloride 1,000 mls @ 125 mls/hr 05/21/24 17:50 05/21/24 20:47 Normal Saline Iv IV CONT 125 mls/hr .Q8H JU Administration Piperacillin/Tazobactam/Dextrose 3.375 gm in 50 mls @ 100 mls/hr 05/21/24 18:00 05/22/24 05:45 Zosyn 3.375 Gm/Ns 50 Ml IVPB Infused Q6H JU Infusion Megestrol Acetate 20 mg 05/22/24 09:00 05/22/24 08:54 Megestrol Acetate (*Chemo) 20 Mg Tablet FEED TUBE 20 mg QAM JU Administration Miscellaneous Information 1 each 05/21/24 00:01 Nonformulary Drug (Buprenorphine 5 Mcg/Hour Patch Weekly) Can Patient Use From Home? Also XX 06/20/24 00:00 CLARIFY JU Morphine Sulfate 2 mg 05/21/24 20:16 05/22/24 10:06 Morphine Sulfate (*Crx) 2 Mg/Ml Inj IV PUSH 2 mg Q4H PRN Administration Severe Pain Nicotine 1 patch 05/21/24 21:30 05/22/24 08:54 Nicotine (*Pbkc) 21 Mg Patch TRANSDERM 1 patch DAILY JU Administration Non-Formulary Medication 1 patch 05/21/24 20:30 Buprenorphine TRANSDERM 06/20/24 20:29 Q7D JU Ondansetron HCl 4 mg 05/21/24 16:45 05/22/24 08:54 Ondansetron Inj 4 Mg/2 Ml Vial IV PUSH 4 mg Q6H PRN Administration Nausea And Vomiting Thiamine HCl 100 mg 05/22/24 09:00 05/22/24 08:53 Thiamine Hcl 100 Mg Tablet FEED TUBE 100 mg DAILY JU Administration Trazodone HCl 50 mg 05/21/24 18:29 05/21/24 20:47 Trazodone Hcl 50 Mg Tablet FEED TUBE 50 mg HS PRN Administration insomnia Radiology Results: ITS Impressions Abdomen/Pelvis CT 05/21/24 15:31 IMPRESSION: 1. Wall thickening of the rectosigmoid, consistent with colitis. Labs Labs: Laboratory Results - last 24 hr 05/21/24 05/21/24 05/21/24 13:43 14:53 14:55 WBC 4.0 L RBC 3.60 L Hgb 13.3 D Hct 36.6 L MCV 101.7 H MCH 36.9 H MCHC 36.3 H RDW 13.8 Plt Count 166 D MPV 10.3 Immature Gran % (Auto) 0.3 Neut % (Auto) 79.5 H Lymph % (Auto) 14.1 L [place] % (Auto) 4.8 Eos % (Auto) 0.0 Baso % (Auto) 1.3 H Lymph # (Auto) 0.56 L [place] # (Auto) 0.2 Eos # (Auto) 0.0 Baso # (Auto) 0.1 Abs Immat Gran (auto) 0.01 Absolute Neuts (auto) 3.2 Absolute Nucleated RBC 0.000 Nucleated RBC % 0.0 Platelet Estimate % Immature Plt Fraction Hypochromasia Macrocytosis Schistocytes PT 13.2 INR 1.0 APTT 26.2 Sodium 134 L Potassium 2.3 L* Chloride 87 L Carbon Dioxide 29 Anion Gap 18 H BUN < 2 L Creatinine 0.60 L Estim Creat Clear Calc 72 Estimated GFR > 60 Glucose 136 H Lactic Acid 7.0 H* Calcium 8.5 Phosphorus Magnesium 1.3 L Total Bilirubin 1.3 AST 303 H ALT 101 H Alkaline Phosphatase 196 H Troponin I < 0.012 Total Protein 8.0 Albumin 4.3 Lipase 106 Vitamin B12 Folate Urine Color Dark yellow Urine Appearance Cloudy H Urine pH 5.5 Ur Specific [place] 1.023 Urine Protein 2+ H Urine Glucose (UA) Negative Urine Ketones Trace H Ur Blood (Man) Negative Urine Nitrate Negative Urine Bilirubin 2+ H Urine Urobilinogen 1.0 Leukocyte Esterase Rfl 1+ H Urine RBC 3-5 H Urine WBC 11-20 H Ur Squamous Epith Cells Occasional Urine Bacteria None seen Urine Casts 11-20 Hyaline Casts Present POC Urine HCG, Qual Negative Urine Opiates Screen Negative Urine Methadone Screen Negative Ur Barbiturates Screen Negative Ur Phencyclidine Scrn Negative Ur Amphetamine Screen Negative U Benzodiazepines Scrn Negative Urine Cocaine Screen Negative U Cannabinoids Screen Negative 05/21/24 05/21/24 05/21/24 17:16 19:53 22:22 WBC RBC Hgb Hct MCV MCH MCHC RDW Plt Count MPV Immature Gran % (Auto) Neut % (Auto) Lymph % (Auto) [place] % (Auto) Eos % (Auto) Baso % (Auto) Lymph # (Auto) [place] # (Auto) Eos # (Auto) Baso # (Auto) Abs Immat Gran (auto) Absolute Neuts (auto) Absolute Nucleated RBC Nucleated RBC % Platelet Estimate % Immature Plt Fraction Hypochromasia Macrocytosis Schistocytes PT INR APTT Sodium Potassium 2.4 L* Chloride Carbon Dioxide Anion Gap BUN Creatinine Estim Creat Clear Calc Estimated GFR Glucose Lactic Acid 4.4 H* 4.6 H* Calcium Phosphorus Magnesium Total Bilirubin AST ALT Alkaline Phosphatase Troponin I Total Protein Albumin Lipase Vitamin B12 Folate Urine Color Urine Appearance Urine pH Ur Specific [place] Urine Protein Urine Glucose (UA) Urine Ketones Ur Blood (Man) Urine Nitrate Urine Bilirubin Urine Urobilinogen Leukocyte Esterase Rfl Urine RBC Urine WBC Ur Squamous Epith Cells Urine Bacteria Urine Casts Hyaline Casts POC Urine HCG, Qual Urine Opiates Screen Urine Methadone Screen Ur Barbiturates Screen Ur Phencyclidine Scrn Ur Amphetamine Screen U Benzodiazepines Scrn Urine Cocaine Screen U Cannabinoids Screen 05/22/24 05:53 WBC 4.3 L RBC 2.54 L Hgb 9.5 L D Hct 28.2 L MCV 111.0 H D MCH 37.4 H MCHC 33.7 RDW 14.3 Plt Count 104 L MPV 11.3 H Immature Gran % (Auto) 0.2 Neut % (Auto) 74.9 H Lymph % (Auto) 20.0 [place] % (Auto) 3.3 Eos % (Auto) 0.9 Baso % (Auto) 0.7 Lymph # (Auto) 0.85 L [place] # (Auto) 0.1 Eos # (Auto) 0.0 Baso # (Auto) 0.0 Abs Immat Gran (auto) 0.01 Absolute Neuts (auto) 3.2 Absolute Nucleated RBC 0.000 Nucleated RBC % 0.0 Platelet Estimate Slightly decreased % Immature Plt Fraction 8.6 Hypochromasia 1+ Macrocytosis 1+ Schistocytes None seen PT INR APTT Sodium 134 L Potassium 3.6 Chloride 103 Carbon Dioxide 23 Anion Gap 8 BUN < 2 L Creatinine 0.50 L Estim Creat Clear Calc 85 Estimated GFR > 60 Glucose 84 Lactic Acid Calcium 6.6 L Phosphorus 1.6 L Magnesium 2.1 Total Bilirubin 1.4 H AST 376 H ALT 87 H Alkaline Phosphatase 119 Troponin I Total Protein 5.0 L Albumin 2.6 L Lipase Vitamin B12 536.0 Folate 15.9 Urine Color Urine Appearance Urine pH Ur Specific [place] Urine Protein Urine Glucose (UA) Urine Ketones Ur Blood (Man) Urine Nitrate Urine Bilirubin Urine Urobilinogen Leukocyte Esterase Rfl Urine RBC Urine WBC Ur Squamous Epith Cells Urine Bacteria Urine Casts Hyaline Casts POC Urine HCG, Qual Urine Opiates Screen Urine Methadone Screen Ur Barbiturates Screen Ur Phencyclidine Scrn Ur Amphetamine Screen U Benzodiazepines Scrn Urine Cocaine Screen U Cannabinoids Screen
[2024-05-22] MEDS: SODIUM CHLORIDE 0.9% IV 1,000 ML 125 ML IV CONT (11:59)
[2024-05-22] MEDS: chlordiazePOXIDE (*CRX) 25 MG CAPSULE PO (13:29)
--- NOTE | 2024-05-22 13:40 | PC.NURSE ---
On 05/22/24, the student, [Isabelle Willams], provided care and completed [facility] documentation on this patient. I have reviewed the student's documentation and agree with the findings.
[2024-05-22] MEDS: HYDROcodone/acetaminophen (*CRX) 5-325 MG TABLET 1 TAB PO ×3 (13:49→23:19)
--- NOTE | 2024-05-22 15:52 | P.CONGI_ITS ---
Assessment and Plan Assessment and plan (1) Severe protein-calorie malnutrition: Code(s): E43 - Unspecified severe protein-calorie malnutrition Status: Acute (2) Pancytopenia: Code(s): D61.818 - Other pancytopenia Status: Acute (3) Colitis: Code(s): K52.9 - Noninfective gastroenteritis and colitis, unspecified Status: Acute (4) Elevated LFTs: Code(s): R79.89 - Other specified abnormal findings of blood chemistry Status: Acute (5) Nausea & vomiting: Qualifiers: Vomiting type: unspecified Qualified Code(s): R11.2 - Nausea with vomiting, unspecified Code(s): R11.2 - Nausea with vomiting, unspecified Status: Acute Plan 1.) Nausea/vomiting/ weight loss / appetite loss /malnutrition/PEG tube: Last EGD on 11/02/2023 was unremarkable and biopsies were negative for celiac disease and H pylori. Peg tube placed November 08, 2023 for nausea, vomiting, weight loss, and malnutrition. Patient has been using PEG tube for supplemental tube feedings. Patient with chronic nausea and vomiting that has been occurring for more than 6 years following the of her son. Swallow study was normal. Patient was unable to complete gastric emptying study. Patient using Zofran on an as-needed basis with temporary improvement * continue supportive care with antiemetics * will start workup for possible IBD 2.) Chronic diarrhea /Abnormal imaging digestive-colitis/fecal urgency: Patient has never had a colonoscopy. CT this admission showed wall thickening of the rectosigmoid colon consistent with colitis. Lactic acid elevated at 7.0 on admission trending down currently at 4.6. Previous workup negative for celiac disease. C diff was negative last month. Diarrhea has been occurring for more than 7 years. She has no accompanying abdominal pain. Diarrhea was occurring prior to her starting tube feedings. She has anywhere from 2-15 bowel movements per day that are typically postprandial an urgent with occasional fecal incontinence. No signs of active GI bleeding. * Stool studies and lab work ordered to evaluate for IBD * plan for colonoscopy 3.Elevated LFT's: Hepatitis panel was negative in October. In labs today show total bilirubin 1.4, AST 376, ALT 87, alkaline phosphatase 119, albumin 2.6. Abdominal ultrasound in May of 2023 showed fatty infiltration of the liver. Normal appearing liver on CT this admission. * Liver workup ordered 4. Pancytopenia / hyponatremia/hypercalcemia /hypophosphatemia: Labs today showed WBCs 4.3, HGB 10, HCT 28, MCV 111, platelets 104. Iron panel in January was normal. B12 and folate normal. * AM cortisol, CPK, and ionized calcium ordered * hematology referral for further workup of pancytopenia Thank you very much for allowing me to share in care of this very complex patient. GI Consult Note Consult date/time: 05/22/24 15:52 Reason for consult: Chronic diarrhea and colitis HPI: This is a pleasant 34 year old female with a past medical surgical history of depression, anxiety, anorexia, G tube placed in 10/2023, avoidant/restrictive food intake disorder, cannabis abuse, and mitral valve prolapse. She presented to the emergency room with complaints of nausea and vomiting and was admitted for hypokalemia, hypomagnesemia and colitis. Patient states that prior to the of her son 7 years ago she was normal in . Following the of her son she started having GI symptoms of chronic nausea, vomiting, and diarrhea. Secondary to malnutrition the patient had a PEG tube placed 11/08/2023. She reports that she had a little bit of abdominal pain that went away yesterday. She describes the pain as being really below her belly button and more like a muscle soreness type pain. Denies nausea or vomiting today but reports that she had vomiting yesterday. She takes Zofran on an as- needed basis which helps temporarily with nausea. Yesterday, every time she tried to eat or drink anything, it just came right back up. She denies bloating, difficult or painful swallowing, food getting stuck, or heartburn. Her appetite has been poor for years. Her weight has been going up but she lost a few pounds recently due to getting sick. She is on a tube feedings to get back to baseline weight. She has mostly liquid bowel movements every day, going multiple times and this has been occurring for more than 7 years prior to starting tube feedings. She sometimes has fecal incontinence. Her diarrhea has not been worse recently. On a good day, she has at least 2 bowel movements and on a bad day, s he has greater than 15 bowel movements. The bad days occur about once a week and resolve on their own. She denies any certain foods making her symptoms worse. Her last bowel movement was today and was liquid. She denies going more than 2-3 days without a bowel movement or having blood in the stool or black stools. She does not take any Motrin, Aleve, ibuprofen, naproxen, aspirin or blood thinners regularly. She has never had a colonoscopy. Family history is significant for colon cancer in her maternal grandmother. She smokes 5-7 cigarettes daily and quit marijuana use 1 month ago with no change in symptoms. ENDOSCOPY HISTORY: EGD/PE11/08/[address] Cha for nausea, weight loss, malnutrition, anorexia EGD was normal 20 Sami gastrostomy tube placed EGD: EGD: 11/02/[address] Cha for nausea, vomiting, weight loss and malnutrition Findings: the esophagus was examined mucosa was normal with a normal Z-line and no ulcers or masses. No obvious esophagitis. Multiple biopsies were taken from the lower 3rd esophagus. The stomach at the body, cardia and fundus was examined and was normal no ulcers or masses. No obvious gastritis. Multiple biopsies were taken The ampulla, bulb and 2nd portion the duodenum was normal with no ulcers or masses. Multiple biopsies were taken to rule out celiac sprue. Bx results: A. Small bowel, biopsies: - Benign duodenal mucosa - No evidence of duodenitis or celiac disease. B. Stomach, biopsies: - Mild reactive gastropathy with congestion of surface vasculature - No evidence of gastritis or Helicobacter organisms. C. Esophagus, biopsies: - Benign hyperkeratosis of squamous epithelium - Immunoperoxidase stains with positive controls for p16 and p53 are negative COLONOSCOPY: Patient has never had a colonoscopy LABS AND STOOL STUDIES: Labs 02/20/2024 showed sodium 134, potassium 3.6, BUN < 2, creatinine 0.50, GFR > 60. WBC is 4.3, HGB 10, HCT 28, MCV 111, platelets 104. Total bilirubin 1.4, AST 376, ALT 87, alkaline phosphatase 119, albumin 2.6, lipase 106. Calcium 6.6, phosphorus 1.6, magnesium 2.1, B12 536, folate 15.9. Lactic acid trending down since admission from 7.0-4.6 Workup in October of 2023 showed all of the following were negative to include hepatitis panel, HIV, Lyme disease, flu, HSV, West Nile, Ebstein Fernandez, and herpes Stool studies 03/28/2024 showed negative C diff. IMAGING: CT abd/pelvis w/contrast 05/21/2024 FINDINGS: The visualized portions of lung bases are clear without pneumonia or pleural effusion. The heart size is normal. No pericardial effusion. The liver is normal. The gallbladder is distended, likely secondary to fasting. Calcifications in the spleen are consistent with old granulomatous disease. The pancreas, adrenal glands, and kidneys are normal. There is a gastrostomy tube in expected position. There is wall thickening of the rectosigmoid. The appendix is normal. There are no pathologically enlarged lymph nodes. There is no free intraperitoneal fluid. There is mild lumbar spondylosis. IMPRESSION: 1. Wall thickening of the rectosigmoid, consistent with colitis. Gastric emptying study 11/04/2023 IMPRESSION: 1. The patient refused the exam after ingesting very little of the radiolabeled meal. MBS 06/23/2023 IMPRESSION: 1. Normal modified barium swallow. 2. Please refer to the speech therapy report for recommendations. Abdominal ultrasound 06/22/2023 IMPRESSION: 1: Fatty infiltration of the liver. Review of Systems Constitutional: Constitutional: Reports as per HPI ENT: Reports as per HPI Cardiovascular: Cardiovascular: Reports as per HPI, Denies chest pain, Denies leg edema and Denies dyspnea Respiratory: Respiratory: Denies cough, Denies dyspnea and Denies dyspnea on exertion Gastrointestinal: Gastrointestinal: Reports as per HPI Musculoskeletal: Musculoskeletal: Reports as per HPI Integumentary/Breasts: Skin/Breast: Reports as per HPI Psychiatric: Psychiatric: Reports as per HPI Endocrine: Endocrine: Reports no additional endocrine complaints Hematologic/Lymphatic: Hematologic/Lymphatic: Reports no additional hematologic/lymphatic complaints COUNTS INCLUDE 234 BEDS AT THE [facility] Past Medical History Medical History (Updated 05/22/24 @ 12:20 by Braulio Prince MD) Avoidant/restrictive food intake disorder Cannabis abuse Depression with anxiety Elevated LFTs Mitral valve prolapse Surgical History Surgical History History of percutaneous endoscopic gastrostomy Family History Family History Mother Heart attack Grandparent Cancer Social History Social History Social History: Surrogate medical decision maker: Jorge Luis Centeno, significant other. Code status: Full code. Smoking packs per day: 0.5 Smoking cigarettes per day: 10.0 Years smoked: 17 Smoking pack-years: 8.50 Smoking status: Current every day smoker Tobacco type: cigarettes Alcohol intake: current Drinks per week: 4 Alcohol use details: States she drinks 1 pint a week Substance use: current Substance use type: marijuana Other substance usage details: 1 pint of Rum/week; last intake 03/25/24 Last use: 10/31/23 Do You Feel Safe in your Home?: Yes Lack of Transportation: No Lack of Food: Never True Current Housing: I Have Housing Concerned About Future Housing: No Difficulty Paying Gas/Electric Bills: No Difficulty Paying for Meds: No Currently Unemployed: No Education: High School Diploma/GED Difficulty w/ Childcare or Family Care: No Living arrangements: with family Additional living arrangements comments: with 7 year old son and fianc? Occupation/Education: unemployed Spiritual care concerns: No Agree to blood products: Yes Meds Home Medications and Allergies Home Medications Medication Instructions Recorded Confirmed Type duloxetine 60 mg capsule,delayed 60 mg PO QAM #30 caps 02/08/24 05/21/24 Rx release ondansetron 8 mg disintegrating 8 mg PO Q8H PRN nausea and 02/08/24 05/21/24 Rx tablet vomiting #90 tabs ferrous sulfate 325 mg (65 mg 325 mg PO BID 03/28/24 05/21/24 History iron) tablet,delayed release folic acid 1 mg tablet 1 mg feeding tube DAILY 03/28/24 05/21/24 History megestrol 20 mg tablet 20 mg feeding tube QAM 03/28/24 05/21/24 History multivitamin with folic acid 400 1 tablet PO QAM 03/28/24 05/21/24 History mcg tablet (Thera) thiamine HCl (vitamin B1) 100 mg 100 mg feeding tube DAILY 03/28/24 05/21/24 History tablet trazodone 50 mg tablet 50 mg feeding tube HS PRN insomnia 03/28/24 05/21/24 History vitamin B complex (Vitamins B 1 cap feeding tube QAM 03/28/24 05/21/24 History Complex capsule) potassium chloride 10 mEq 10 meq PO DAILY #30 caps 03/29/24 05/21/24 Rx capsule,extended release buprenorphine 5 mcg/hour weekly 1 patch transdermal Q7D chronic 05/14/24 05/21/24 Rx transdermal patch pain 28 days #4 ea Allergies Allergy/AdvReac Type Severity Reaction Status Date / Time latex Allergy Rash Verified 05/21/24 13:27 Vital Signs Vital Signs - 24 hr 05/21/24 16:13 05/21/24 16:15 05/21/24 17:30 Temperature Pulse Rate 99 100 Pulse Rate [Apical] Respiratory Rate 23 H 20 Blood Pressure Pulse Oximetry 100 100 Oxygen Delivery Room Air 05/21/24 20:16 05/21/24 20:00 05/22/24 05:02 Temperature 99.1 F 98.5 F Pulse Rate 99 99 104 H Pulse Rate [Apical] Respiratory Rate 18 18 18 Blood Pressure 111/71 105/71 Pulse Oximetry 100 100 100 Oxygen Delivery Room Air 05/21/24 20:00 05/22/24 00:00 05/22/24 04:00 Temperature Pulse Rate 99 96 96 Pulse Rate [Apical] Respiratory Rate Blood Pressure Pulse Oximetry Oxygen Delivery 05/22/24 08:37 05/22/24 08:00 05/22/24 12:00 Temperature Pulse Rate 94 117 H Pulse Rate [Apical] Respiratory Rate Blood Pressure Pulse Oximetry 100 Oxygen Delivery Room Air 05/22/24 12:44 05/22/24 13:35 05/22/24 14:07 Temperature 97.0 F L 97.6 F Pulse Rate 95 100 Pulse Rate [Apical] 106 H Respiratory Rate 24 H 20 Blood Pressure 108/76 109/76 Pulse Oximetry 100 100 Oxygen Delivery 05/22/24 14:55 Temperature Pulse Rate Pulse Rate [Apical] Respiratory Rate Blood Pressure 111/69 Pulse Oximetry Oxygen Delivery Exam Const: General: cooperative, healthy appearing, comfortable, no acute distress and well developed Orientation/consciousness: oriented to person, oriented to place, oriented to time and patient oriented x3 HENMT: Head: normal to inspection, normocephalic and atraumatic Mouth: Yes Normal oral and palatal mucosa present and Yes moist mucous membranes Eyes: General: appearance normal, both eyes and all related structures Conjunctivae: conjunctivae normal Sclera: sclerae normal Pupils: Equal, round and reactive pupils present Neck: Neck: normal visual inspection Chest: Chest palpation & inspection: normal inspection of the chest Resp: Effort & Inspection: normal respiratory effort and able to speak in complete sentences Auscultation: clear to auscultation bilaterally Cardio: Jugular venous distension: no JVD Rate: regular rate Rhythm: regular rhythm Heart sounds: S1 normal heart sound present and S2 normal heart sound present GI: Inspection: normal to inspection GI Palp: Yes Soft to palpation and Yes No hepatosplenomegaly present Auscultation: normal bowel sounds Rectal Exam: deferred Other: PEG tube right mid abdomen. Site looks good with no erythema or drainage Skin: General skin exam: normal color and no rashes or lesions noted Neuro: General: oriented to person, oriented to place, oriented to time and patient oriented x3 Cranial nerves: Yes Equal, round and reactive pupils present Speech: normal speech Extrem: General: normal to inspection and no clubbing, cyanosis or edema Psych: Appearance: grossly normal and well kempt Affect: normal affect Results Labs 05/22/24 05:53 05/22/24 05:53 Labs: Short CBC 05/22/24 Range/Units 05:53 WBC 4.3 L (4.5-10.0) K/mm3 Hgb 9.5 L D (12.0-15.0) g/dL Hct 28.2 L (37.0-47.0) % Plt Count 104 L (150-375) k/mm3 BMP 05/21/24 05/22/24 22:22 05:53 Sodium 134 L Potassium 2.4 L* 3.6 Chloride 103 Carbon Dioxide 23 BUN < 2 L Creatinine 0.50 L Glucose 84 Calcium 6.6 L Liver Function 05/22/24 Range/Units 05:53 Total Bilirubin 1.4 H (0.2-1.3) mg/dL AST 376 H (14-36) U/L ALT 87 H (6-35) U/L Alkaline Phosphatase 119 (38-126) U/L Albumin 2.6 L (3.5-5.1) g/dL
[2024-05-22 16:31] LABS: Toxigenic C. Diff NEGATIVE (NEGATIVE)
--- NOTE | 2024-05-22 17:20 | P.PNGI_ITS ---
Progress Note: A&P Assessment and Plan (1) Elevated LFTs: Code(s): R79.89 - Other specified abnormal findings of blood chemistry Status: Acute Assessment and Plan: This patient presents with complex severe multisystemic abnormalities, including electrolyte disturbances, chronic diarrhea, suspected colitis, pancytopenia, and abnormal liver function tests. Several conditions could potentially explain the electrolyte abnormalities: chronic diarrhea, adrenal insufficiency, or malnutrition itself. Cortisol levels have been ordered to assess adrenal function. While less likely, renal tubular dysfunction (Fanconi syndrome) could also contribute to electrolyte losses, as well as glucose and aminoaciduria. Urine electrolyte analysis will be helpful in this regard. Despite the absence of edema, a random urine protein measurement is recommended to assess urine losses that may explain hypoalbuminemia. The etiology of pancytopenia remains unclear, although malnutrition may play a role. A hematology consult is suggested to further evaluate this finding. The macrocytic anemia in the setting of normal vitamin B12 and folate levels is intriguing and requires further investigation. The significantly elevated AST compared to ALT raises suspicion of myositis or rhabdomyolysis, and CPK levels are ordered as well. Given the history of chronic diarrhea and potential colonic thickening on CT a colonoscopy with biopsies is scheduled in two days to rule out IBD or microscopic colitis, both of which can be associated with protein-losing enteropathy and hypoalbuminemia. (2) Colitis: Code(s): K52.9 - Noninfective gastroenteritis and colitis, unspecified Status: Acute (3) Pancytopenia: Code(s): D61.818 - Other pancytopenia Status: Acute (4) Gastroenteritis: Code(s): K52.9 - Noninfective gastroenteritis and colitis, unspecified Status: Acute (5) Acute hypokalemia: Code(s): E87.6 - Hypokalemia Status: Acute (6) Hypomagnesemia: Code(s): E83.42 - Hypomagnesemia Status: Acute Subjective Date/time seen: 05/22/24 17:20 Interval history: This patient was in her usual state of health until 7 years ago, right after she delivered her only son. In she started to experience frequent episodes of diarrhea, between [place] 5 and 7, never associated with crampy abdominal pain, and alternating with periods of normal stools. She states that she has diarrhea about 60% of the times. Concomitantly, her nausea and vomiting became intolerable experiencing significant weight loss. In October this year, a gastrostomy tube was placed. She has also developed peripheral neuropathy of unclear etiology. Her most remarkable laboratory data shows: 05/22/2024: White count 4.0, hemoglobin 9.5, hematocrit 20.2, MCV 111, platelet count 104, calcium 6.6, phosphorus 1.6, bili 1.4, AST 376, ALT 87, albumin 2.6 vitamin B12 536, folic acid 15.9. Review of Systems Review of Systems: All systems reviewed & are unremarkable except as noted in HPI and below Exam Const: General: comfortable Resp: Effort & Inspection: normal respiratory effort and able to speak in complete sentences Auscultation: clear to auscultation bilaterally Cardio: Rate: regular rate Rhythm: regular rhythm GI: Inspection: normal to inspection GI Palp: Yes Soft to palpation, No Tenderness to palpation present (GI), No Guarding due to palpation present (GI) and No No hepatosplenomegaly present Auscultation: normal bowel sounds Rectal Exam: deferred Other: Peg tube in place Skin: General skin exam: normal color Psych: Appearance: grossly normal Mental Status: mental status grossly normal Objective Data Vital Signs Vital Signs: Vital Signs - 24 hr 05/21/24 17:30 05/21/24 20:16 05/21/24 20:00 Temperature 99.1 F Pulse Rate 99 99 Pulse Rate [Apical] Respiratory Rate 18 18 Blood Pressure 111/71 Pulse Oximetry 100 100 Oxygen Delivery Room Air Room Air 05/22/24 05:02 05/21/24 20:00 05/22/24 00:00 Temperature 98.5 F Pulse Rate 104 H 99 96 Pulse Rate [Apical] Respiratory Rate 18 Blood Pressure 105/71 Pulse Oximetry 100 Oxygen Delivery 05/22/24 04:00 05/22/24 08:37 05/22/24 08:00 Temperature Pulse Rate 96 94 Pulse Rate [Apical] Respiratory Rate Blood Pressure Pulse Oximetry 100 Oxygen Delivery Room Air 05/22/24 12:00 05/22/24 12:44 05/22/24 13:35 Temperature 97.0 F L Pulse Rate 117 H 95 Pulse Rate [Apical] 106 H Respiratory Rate 24 H Blood Pressure 108/76 Pulse Oximetry 100 Oxygen Delivery 05/22/24 14:07 05/22/24 14:55 05/22/24 16:00 Temperature 97.6 F Pulse Rate 100 105 H Pulse Rate [Apical] Respiratory Rate 20 Blood Pressure 109/76 111/69 Pulse Oximetry 100 Oxygen Delivery Intake/Output Intake/Output: Intake & Output 05/19/24 05/20/24 05/21/24 05/22/24 23:59 23:59 23:59 23:59 Intake Total 1810.4 2545.8 Balance 1810.4 2545.8 Meds/Results Medications: Active Medications Generic Name Dose Route Start Last Admin Trade Name Freq PRN Reason Stop Dose Admin Acetaminophen 650 mg 05/22/24 12:46 Acetaminophen 325 Mg Tablet PO Q6H PRN Pain Rated 5 or Less Hydrocodone Bitart/Acetaminophen 1 tab 05/22/24 12:48 05/22/24 13:49 Hydrocodone/Acetaminophen (*Crx) 5-325 Mg Tablet PO 1 tab Q4H PRN Administration Pain Rated 6 or Greater Chlordiazepoxide HCl 25 mg 05/22/24 12:44 05/22/24 13:29 Chlordiazepoxide (*Crx) 25 Mg Capsule PO 25 mg Q6H PRN Administration Withdrawal CIWA 8-15 Duloxetine HCl 60 mg 05/22/24 09:00 05/22/24 08:54 Duloxetine Hcl 60 Mg Capsule.Dr PO 60 mg QAM JU Administration Folic Acid 1 mg 05/22/24 09:00 05/22/24 08:54 Folic Acid 1 Mg Tablet FEED TUBE 1 mg DAILY JU Administration Sodium Chloride 1,000 mls @ 70 mls/hr 05/21/24 17:50 05/22/24 13:33 Normal Saline Iv IV CONT 70 mls/hr .[id number] JU Infusion Piperacillin/Tazobactam/Dextrose 3.375 gm in 50 mls @ 100 mls/hr 05/21/24 18:00 05/22/24 12:10 Zosyn 3.375 Gm/Ns 50 Ml IVPB Infused Q6H JU Infusion Lorazepam 2 mg 05/22/24 12:44 Lorazepam Inj (*Crx) 2 Mg/Ml Vial IV PUSH Q2H PRN CIWA > 15 Megestrol Acetate 20 mg 05/22/24 09:00 05/22/24 08:54 Megestrol Acetate (*Chemo) 20 Mg Tablet FEED TUBE 20 mg QAM JU Administration Miscellaneous Information 1 each 05/21/24 00:01 Nonformulary Drug (Buprenorphine 5 Mcg/Hour Patch Weekly) Can Patient Use From Home? Also XX 06/20/24 00:00 CLARIFY JU Nicotine 1 patch 05/21/24 21:30 05/22/24 08:54 Nicotine (*Pbkc) 21 Mg Patch TRANSDERM 1 patch DAILY JU Administration Non-Formulary Medication 1 patch 05/21/24 20:30 Buprenorphine TRANSDERM 06/20/24 20:29 Q7D JU Ondansetron HCl 4 mg 05/21/24 16:45 05/22/24 08:54 Ondansetron Inj 4 Mg/2 Ml Vial IV PUSH 4 mg Q6H PRN Administration Nausea And Vomiting Thiamine HCl 100 mg 05/22/24 09:00 05/22/24 08:53 Thiamine Hcl 100 Mg Tablet FEED TUBE 100 mg DAILY JU Administration Trazodone HCl 50 mg 05/21/24 18:29 05/21/24 20:47 Trazodone Hcl 50 Mg Tablet FEED TUBE 50 mg HS PRN Administration insomnia Radiology Results: ITS Impressions Abdomen/Pelvis CT 05/21/24 15:31 IMPRESSION: 1. Wall thickening of the rectosigmoid, consistent with colitis. Labs Labs: Laboratory Results - last 24 hr 05/21/24 05/21/24 05/21/24 17:16 19:53 22:22 WBC RBC Hgb Hct MCV MCH MCHC RDW Plt Count MPV Immature Gran % (Auto) Neut % (Auto) Lymph % (Auto) [place] % (Auto) Eos % (Auto) Baso % (Auto) Lymph # (Auto) [place] # (Auto) Eos # (Auto) Baso # (Auto) Abs Immat Gran (auto) Absolute Neuts (auto) Absolute Nucleated RBC Nucleated RBC % Platelet Estimate % Immature Plt Fraction Hypochromasia Macrocytosis Schistocytes Sodium Potassium 2.4 L* Chloride Carbon Dioxide Anion Gap BUN Creatinine Estim Creat Clear Calc Estimated GFR Glucose Lactic Acid 4.4 H* 4.6 H* Calcium Phosphorus Magnesium Total Bilirubin AST ALT Alkaline Phosphatase Total Protein Albumin Vitamin B12 Folate C. difficile (PCR) 05/22/24 05/22/24 05:53 14:59 WBC 4.3 L RBC 2.54 L Hgb 9.5 L D Hct 28.2 L MCV 111.0 H D MCH 37.4 H MCHC 33.7 RDW 14.3 Plt Count 104 L MPV 11.3 H Immature Gran % (Auto) 0.2 Neut % (Auto) 74.9 H Lymph % (Auto) 20.0 [place] % (Auto) 3.3 Eos % (Auto) 0.9 Baso % (Auto) 0.7 Lymph # (Auto) 0.85 L [place] # (Auto) 0.1 Eos # (Auto) 0.0 Baso # (Auto) 0.0 Abs Immat Gran (auto) 0.01 Absolute Neuts (auto) 3.2 Absolute Nucleated RBC 0.000 Nucleated RBC % 0.0 Platelet Estimate Slightly decreased % Immature Plt Fraction 8.6 Hypochromasia 1+ Macrocytosis 1+ Schistocytes None seen Sodium 134 L Potassium 3.6 Chloride 103 Carbon Dioxide 23 Anion Gap 8 BUN < 2 L Creatinine 0.50 L Estim Creat Clear Calc 85 Estimated GFR > 60 Glucose 84 Lactic Acid Calcium 6.6 L Phosphorus 1.6 L Magnesium 2.1 Total Bilirubin 1.4 H AST 376 H ALT 87 H Alkaline Phosphatase 119 Total Protein 5.0 L Albumin 2.6 L Vitamin B12 536.0 Folate 15.9 C. difficile (PCR) Negative
[2024-05-22 18:03] LABS: Glucose Point of Care 71 mg/dl (65-105)
[2024-05-22 18:41] LABS: Creatine Kinase 96 U/L (30-135)
[2024-05-22 18:53] LABS: Iron 75 ug/dL (37-170)
[2024-05-22 19:02] LABS: Percent Iron Saturation 32 % (20-50)
[2024-05-22 19:09] LABS: Vitamin D 25 Hydroxy 23.4 ng/mL
[2024-05-22] MEDS: traZODone HCL 50 MG TABLET FEED TUBE (20:11)
[2024-05-22 20:45] LABS: Total Protein Urine Random 17 mg/dL
[2024-05-22 20:47] LABS: Potassium Urine Random 22.2 meq/L; Sodium Urine Random 149 meq/L
[2024-05-23] VITALS (9 sets, daily range): BP systolic 101–112; BP diastolic 70–75; PULSE 75–97; RESP 12–18; TEMP 36.4–36.8; O2SAT 100
[2024-05-23 00:28] LABS: Glucose Point of Care 95 mg/dl (65-105)
[2024-05-23] MEDS: PIPERACILLN/TAZ 3.375GM/NS50ML 3.375 GM/50 ML BAG IVPB ×5 (00:48→23:19)
[2024-05-23] MEDS: SODIUM CHLORIDE 0.9% IV 1,000 ML 70 ML IV CONT ×2 (00:48→17:31)
[2024-05-23] MEDS: ONDANSETRON INJ 4 MG/2 ML VIAL IV PUSH ×3 (01:10→19:52)
[2024-05-23 05:37] LABS: Glucose Point of Care 97 mg/dl (65-105)
[2024-05-23 06:23] LABS: Basophils Percent Auto 1.1 % (0.2-1.2); Eosinophils Absolute Auto 0.1 K/mm3 (0-0.3); Eosinophils Percent Auto 2.6 % (0-4.4); Hematocrit 30.2 % (37.0-47.0); Lymphocytes Absolute Auto 0.95 K/mm3 (0.9-3.2); Lymphocytes Percent Auto 27.1 % (18.3-44.2); Mean Corpuscular HGB Conc 33.1 g/dl (32-36); Mean Corpuscular Hemoglobin 36.5 pg (26-34); Mean Corpuscular Volume 110.2 fl (80-100); Mean Platelet Volume 11.7 fl (7.4-10.4); Monocytes Percent Auto 1.1 % (2.6-8.5); Neutrophils Absolute Auto 2.4 K/mm3 (1.3-6.7); Neutrophils Percent Auto 68.1 % (45.5-73.1); Platelet Count Result 94 k/mm3 (150-375); Red Blood Count 2.74 M/mm3 (4.2-5.4); Red Cell Distribution Width 13.6 % (11.5-14.5); White Blood Count 3.5 K/mm3 (4.5-10.0)
[2024-05-23 06:33] LABS: Alanine Aminotransferase 133 U/L (6-35); Albumin Level 2.6 g/dL (3.5-5.1); Alkaline Phosphatase 136 U/L (38-126); Anion Gap 5 mmol/L (4-12); Aspartate Amino Transferase 324 U/L (14-36); Calcium 7.6 mg/dL (8.4-10.2); Carbon Dioxide 31 mmol/L (22-30); Chloride 99 mmol/L (98-107); Estimated CRCL calculation 72 ml/min; Estimated Glomerular Filt Rate > 60; Glucose 72 mg/dL (65-110); Lactic Acid Reflex 1.7 mmol/L (0.7-2.0); Magnesium 1.7 mg/dL (1.6-2.3); Phosphorus 2.7 mg/dL (2.5-4.5); Potassium 3.4 mmol/L (3.4-5.0); Sodium 135 mmol/L (137-145)
[2024-05-23 06:47] LABS: Iron 80 ug/dL (37-170)
--- NOTE | 2024-05-23 06:55 | WPDGIPROGNO ---
Progress Note: A&P Assessment and Plan (1) Elevated LFTs: Code(s): R79.89 - Other specified abnormal findings of blood chemistry Status: Acute (2) Colitis: Code(s): K52.9 - Noninfective gastroenteritis and colitis, unspecified Status: Acute Assessment and Plan: Patient with the problems delineated on yesterday's consultation. Awaiting rest of the blood results. Colonoscopy and biopsies planned for tomorrow, to assess colitis seen on CT and to rule out mucosal causes of chronic diarrhea, such as IBD or microscopic colitis. Hematology consult suggested to address pancytopenia. CPK ordered to r/o muscular origin of AST elevation. Will contnue to follow. (3) Pancytopenia: Code(s): D61.818 - Other pancytopenia Status: Acute (4) Acute hypokalemia: Code(s): E87.6 - Hypokalemia Status: Acute (5) Hypomagnesemia: Code(s): E83.42 - Hypomagnesemia Status: Acute (6) Hypophosphatemia: Code(s): E83.39 - Other disorders of phosphorus metabolism Status: Acute Subjective Date/time seen: 05/23/24 06:55 Interval history: patient stable, with no changes from yesterday's visit. Pending labs today Objective Data Vital Signs Vital Signs: Vital Signs - 24 hr 05/22/24 08:37 05/22/24 08:00 05/22/24 12:00 Temperature Pulse Rate 94 117 H Pulse Rate [Apical] Respiratory Rate Blood Pressure Pulse Oximetry 100 Oxygen Delivery Room Air 05/22/24 12:44 05/22/24 13:35 05/22/24 14:07 Temperature 97.0 F L 97.6 F Pulse Rate 95 100 Pulse Rate [Apical] 106 H Respiratory Rate 24 H 20 Blood Pressure 108/76 109/76 Pulse Oximetry 100 100 Oxygen Delivery 05/22/24 14:55 05/22/24 16:00 05/22/24 20:00 Temperature Pulse Rate 105 H Pulse Rate [Apical] 89 Respiratory Rate Blood Pressure 111/69 Pulse Oximetry Oxygen Delivery 05/22/24 20:21 05/22/24 20:00 05/23/24 00:00 Temperature 98.4 F Pulse Rate 86 Pulse Rate [Apical] 76 Respiratory Rate 18 Blood Pressure 107/66 Pulse Oximetry 100 Oxygen Delivery Room Air 05/22/24 20:00 05/23/24 00:00 05/23/24 04:00 Temperature Pulse Rate 119 H 87 77 Pulse Rate [Apical] Respiratory Rate Blood Pressure Pulse Oximetry Oxygen Delivery 05/23/24 04:00 05/23/24 05:02 Temperature 98.2 F Pulse Rate 86 Pulse Rate [Apical] 75 Respiratory Rate 18 Blood Pressure 101/75 Pulse Oximetry 100 Oxygen Delivery Intake/Output Intake/Output: Intake & Output 05/20/24 05/21/24 05/22/24 05/23/24 23:59 23:59 23:59 23:59 Intake Total 2330.4 3015.8 1477.5 Output Total 200 Balance 2330.4 2815.8 1477.5 Meds/Results Medications: Active Medications Generic Name Dose Route Start Last Admin Trade Name Freq PRN Reason Stop Dose Admin Acetaminophen 650 mg 05/22/24 12:46 Acetaminophen 325 Mg Tablet PO Q6H PRN Pain Rated 5 or Less Hydrocodone Bitart/Acetaminophen 1 tab 05/22/24 12:48 05/22/24 23:19 Hydrocodone/Acetaminophen (*Crx) 5-325 Mg Tablet PO 1 tab Q4H PRN Administration Pain Rated 6 or Greater Chlordiazepoxide HCl 25 mg 05/22/24 12:44 05/22/24 13:29 Chlordiazepoxide (*Crx) 25 Mg Capsule PO 25 mg Q6H PRN Administration Withdrawal CIWA 8-15 Duloxetine HCl 60 mg 05/22/24 09:00 05/22/24 08:54 Duloxetine Hcl 60 Mg Capsule. PO 60 mg QAM JU Administration Folic Acid 1 mg 05/22/24 09:00 05/22/24 08:54 Folic Acid 1 Mg Tablet FEED TUBE 1 mg DAILY JU Administration Sodium Chloride 1,000 mls @ 70 mls/hr 05/21/24 17:50 05/23/24 00:48 Normal Saline Iv IV CONT 70 mls/hr .[id number] JU Administration Piperacillin/Tazobactam/Dextrose 3.375 gm in 50 mls @ 100 mls/hr 05/21/24 18:00 05/23/24 05:35 Zosyn 3.375 Gm/Ns 50 Ml IVPB Infused Q6H JU Infusion Lorazepam 2 mg 05/22/24 12:44 Lorazepam Inj (*Crx) 2 Mg/Ml Vial IV PUSH Q2H PRN CIWA > 15 Megestrol Acetate 20 mg 05/22/24 09:00 05/22/24 08:54 Megestrol Acetate (*Chemo) 20 Mg Tablet FEED TUBE 20 mg QAM JU Administration Miscellaneous Information 1 each 05/21/24 00:01 Nonformulary Drug (Buprenorphine 5 Mcg/Hour Patch Weekly) Can Patient Use From Home? Also XX 06/20/24 00:00 CLARIFY [facility] Nicotine 1 patch 05/21/24 21:30 05/22/24 08:54 Nicotine (*Pbkc) 21 Mg Patch TRANSDERM 1 patch DAILY JU Administration Non-Formulary Medication 1 patch 05/21/24 20:30 Buprenorphine TRANSDERM 06/20/24 20:29 Q7D JU Ondansetron HCl 4 mg 05/21/24 16:45 05/23/24 01:10 Ondansetron Inj 4 Mg/2 Ml Vial IV PUSH 4 mg Q6H PRN Administration Nausea And Vomiting Thiamine HCl 100 mg 05/22/24 09:00 05/22/24 08:53 Thiamine Hcl 100 Mg Tablet FEED TUBE 100 mg DAILY JU Administration Trazodone HCl 50 mg 05/21/24 18:29 05/22/24 20:11 Trazodone Hcl 50 Mg Tablet FEED TUBE 50 mg HS PRN Administration insomnia Radiology Results: ITS Impressions Abdomen/Pelvis CT 05/21/24 15:31 IMPRESSION: 1. Wall thickening of the rectosigmoid, consistent with colitis. Labs Labs: Laboratory Results - last 24 hr 05/22/24 05/22/24 05/22/24 05:53 14:59 18:01 Sodium Potassium Chloride Carbon Dioxide Anion Gap Creatinine Estim Creat Clear Calc Estimated GFR Glucose POC Capillary Glucose 71 Lactic Acid Calcium Phosphorus Magnesium Iron TIBC % Saturation Ferritin Total Bilirubin AST ALT Alkaline Phosphatase Total Creatine Kinase Total Protein Albumin Vitamin B12 536.0 Vitamin D 25-Hydroxy Folate 15.9 U Random Total Protein Ur Random Sodium Ur Random Potassium C. difficile (PCR) Negative 05/22/24 05/22/24 05/22/24 18:04 18:05 20:17 Sodium Potassium Chloride Carbon Dioxide Anion Gap Creatinine Estim Creat Clear Calc Estimated GFR Glucose POC Capillary Glucose Lactic Acid Calcium Phosphorus Magnesium Iron 75 TIBC 233 L % Saturation 32 Ferritin 261.00 H Total Bilirubin AST ALT Alkaline Phosphatase Total Creatine Kinase 96 Total Protein Albumin Vitamin B12 Vitamin D 25-Hydroxy 23.4 Folate U Random Total Protein 17 Ur Random Sodium 149 Ur Random Potassium 22.2 C. difficile (PCR) 05/23/24 05/23/24 05/23/24 00:04 05:06 05:56 Sodium 135 L Potassium 3.4 Chloride 99 Carbon Dioxide 31 H Anion Gap 5 Creatinine 0.60 L Estim Creat Clear Calc 72 Estimated GFR > 60 Glucose 72 POC Capillary Glucose 95 97 Lactic Acid 1.7 Calcium 7.6 L Phosphorus 2.7 Magnesium 1.7 Iron 80 TIBC % Saturation Ferritin Total Bilirubin 1.0 AST 324 H ALT 133 H Alkaline Phosphatase 136 H Total Creatine Kinase Total Protein 6.0 L Albumin 2.6 L Vitamin B12 Vitamin D 25-Hydroxy Folate U Random Total Protein Ur Random Sodium Ur Random Potassium C. difficile (PCR)
[2024-05-23 06:56] LABS: Percent Iron Saturation 40 % (20-50)
[2024-05-23 07:01] LABS: Blood Urea Nitrogen < 2 mg/dL (7-17)
[2024-05-23 07:13] LABS: Creatine Kinase 65 U/L (30-135)
[2024-05-23 07:47] LABS: Hypochromasia 1+; Macrocytosis 2+ (NORMAL); Platelet Estimate Slightly Decreased (Adequate); Schistocytes None Seen
--- NOTE | 2024-05-23 08:23 | PM.IMPN ---
Progress Note: A&P Assessment and Plan (1) Colitis: Code(s): K52.9 - Noninfective gastroenteritis and colitis, unspecified Status: Acute (2) Pancytopenia: Code(s): D61.818 - Other pancytopenia Status: Acute (3) Electrolyte abnormality: Code(s): E87.8 - Other disorders of electrolyte and fluid balance, not elsewhere classified Status: Acute Plan (1) Colitis: Code(s): K52.9 - Noninfective gastroenteritis and colitis, unspecified Status: Acute Assessment and Plan: Patient presents with nausea, vomiting and abdominal pain. CT A/P showing wall thickening of the rectosigmoid area c/w colitis. WBC 4K. Lactic acid 7.0 -> 4.6. BCx NGTD. UCx pending. Started on Zosyn. Regarding diarrhea. Stool studies pending GenSurg consulted. [place] diet could be advanced. Patient is on tube feeding Appreciate GI consultation, plans colonoscopy today (2) Electrolyte abnormality: Code(s): E87.8 - Other disorders of electrolyte and fluid balance, not elsewhere classified Status: Acute Assessment and Plan: Potassium -- 2.3 on admission treated with 40 mEq in the ED Repeat potassium level still low and replaced again. Potassium this morning is normal. Probably related to poor oral intake and n/v. Mag -- level was 1.3 on admission and given 4 g in the emergency room Repeat Mag this morning is normal Phos -- Level normal on admission Repleted Corrected monitor for refeeding syndrome. Calcium -- level at 6.6 with albumin 2.6. Corrected at about 8. Replace once and follow yesterday Potassium 7.6 today, replete with calcium gluconate 2 g once (3) Opioid dependence with withdrawal: Code(s): F11.23 - Opioid dependence with withdrawal Status: Acute Assessment and Plan: Patient with chronic opioid use. She is normally on a pain patch with which was removed on Tuesday and she had no more refills. Her symptoms could be related to acute withdrawal from opioids Patient resumed on her home buprenorphine patch. [place] and Morphine IV available prn (only has required Morphine since admission) Patient recommended to follow-up for pain management as soon as she leaves the hospital Stop Morphine and use oral analgesics prn pain. (4) Length-dependent peripheral neuropathy: Code(s): G62.9 - Polyneuropathy, unspecified Status: Acute Assessment and Plan: Stable. Patient was offered PT and OT but declined at this time Continue Cymbalta (5) UTI (urinary tract infection): Code(s): N39.0 - Urinary tract infection, site not specified Status: Acute Assessment and Plan: UA is consistent with possible UTI. UCx collected. Zosyn started. UCx pending. Follow up on UCx results. (6) Avoidant/restrictive food intake disorder: Code(s): F50.82 - Avoidant/restrictive food intake disorder Status: Acute Assessment and Plan: Patient with failure to thrive requiring chronic G-tube. She takes TF sparingly. As above. (7) Lactic acidosis: Code(s): E87.20 - Acidosis, unspecified Status: Acute Assessment and Plan: As above. Possibly related to colitis. UDS negative. Not been elevated in the past. No HoTN noted here. She denies heavy alcohol use. HIV negative earlier this year. Not on nebs. Not diabetic. Could be related to underlying liver disease or from severe malnutrition. Lactic was 7 with AG 18 but normal serum bicarb. AG closed. She remains on IV fluids. Follow (8) Pancytopenia: Code(s): D61.818 - Other pancytopenia Status: Acute Assessment and Plan: Leukopenia noted in the past and persistent here. HIV negative in October. TCP noted and was as low as 70-80K in January. Normal on admisison but has dropped to 104K. Stop Lovenox since probably will continue to drop. Hgb has been low at times but mostly 11-12 range. Hgb 13.3 but dropped to 9.5 today. Macrocytic anemia. No evidence of acute blood loss. B12/folate normal. Suspect related to underlying liver disease. Copper normal in October. Iron studies in January showing low TIBC c/w anemia of chronic disease or from malnutrtion. Monitor and transfuse as needed. Consult heme oncologist for evaluation treatment Subjective Date/time seen: 05/23/24 08:23 Interval history: I saw examined the patient today, patient is on tube feeding, denies nausea vomiting chest pain, bloody stools. Patient is afebrile, blood pressure stable, labs reviewed, Exam Narrative: GENERAL: Pleasant, in no acute distress. Well-nourished. - EYES: EOMI. Anicteric. - HENT: Moist mucous membranes. - LUNGS: Clear to auscultation bilaterally, no wheezing, rhonchi, or rales. - CARDIOVASCULAR: Regular rate and rhythm. No murmur. No JVD. - ABDOMEN: Soft, non-tender and non-distended. No palpable masses. Peg tube inside - EXTREMITIES: No edema. Peripheral pulses 2+. Non-tender. - NEUROLOGIC: No focal neurological deficits. CN II-XII grossly intact. - PSYCHIATRIC: Awake, Alert and oriented x 3. Appropriate mood and affect. - SKIN: No rashes or lesions. Warm. - LYMPH: No cervical lymphadenopathy. Objective Data Vital Signs Vital Signs: Vital Signs - 24 hr 05/22/24 08:37 05/22/24 12:00 05/22/24 12:44 Temperature Pulse Rate 117 H Pulse Rate [Apical] 106 H Respiratory Rate Blood Pressure Pulse Oximetry 100 Oxygen Delivery Room Air 05/22/24 13:35 05/22/24 14:07 05/22/24 14:55 Temperature 97.0 F L 97.6 F Pulse Rate 95 100 Pulse Rate [Apical] Respiratory Rate 24 H 20 Blood Pressure 108/76 109/76 111/69 Pulse Oximetry 100 100 Oxygen Delivery 05/22/24 16:00 05/22/24 20:00 05/22/24 20:21 Temperature 98.4 F Pulse Rate 105 H 86 Pulse Rate [Apical] 89 Respiratory Rate 18 Blood Pressure 107/66 Pulse Oximetry 100 Oxygen Delivery 05/22/24 20:00 05/23/24 00:00 05/22/24 20:00 Temperature Pulse Rate 119 H Pulse Rate [Apical] 76 Respiratory Rate Blood Pressure Pulse Oximetry Oxygen Delivery Room Air 05/23/24 00:00 05/23/24 04:00 05/23/24 04:00 Temperature Pulse Rate 87 77 Pulse Rate [Apical] 75 Respiratory Rate Blood Pressure Pulse Oximetry Oxygen Delivery 05/23/24 05:02 Temperature 98.2 F Pulse Rate 86 Pulse Rate [Apical] Respiratory Rate 18 Blood Pressure 101/75 Pulse Oximetry 100 Oxygen Delivery Intake/Output Intake/Output: Intake & Output 05/20/24 05/21/24 05/22/24 05/23/24 23:59 23:59 23:59 23:59 Intake Total 2330.4 3015.8 1477.5 Output Total 200 Balance 2330.4 2815.8 1477.5 Meds/Results Medications: Active Medications Generic Name Dose Route Start Last Admin Trade Name Freq PRN Reason Stop Dose Admin Acetaminophen 650 mg 05/22/24 12:46 Acetaminophen 325 Mg Tablet PO Q6H PRN Pain Rated 5 or Less Hydrocodone Bitart/Acetaminophen 1 tab 05/22/24 12:48 05/22/24 23:19 Hydrocodone/Acetaminophen (*Crx) 5-325 Mg Tablet PO 1 tab Q4H PRN Administration Pain Rated 6 or Greater Chlordiazepoxide HCl 25 mg 05/22/24 12:44 05/22/24 13:29 Chlordiazepoxide (*Crx) 25 Mg Capsule PO 25 mg Q6H PRN Administration Withdrawal CIWA 8-15 Duloxetine HCl 60 mg 05/22/24 09:00 05/22/24 08:54 Duloxetine Hcl 60 Mg Capsule.Dr PO 60 mg QAM JU Administration Folic Acid 1 mg 05/22/24 09:00 05/22/24 08:54 Folic Acid 1 Mg Tablet FEED TUBE 1 mg DAILY JU Administration Sodium Chloride 1,000 mls @ 70 mls/hr 05/21/24 17:50 05/23/24 00:48 Normal Saline Iv IV CONT 70 mls/hr .[id number] JU Administration Piperacillin/Tazobactam/Dextrose 3.375 gm in 50 mls @ 100 mls/hr 05/21/24 18:00 05/23/24 05:35 Zosyn 3.375 Gm/Ns 50 Ml IVPB Infused Q6H JU Infusion Lorazepam 2 mg 05/22/24 12:44 Lorazepam Inj (*Crx) 2 Mg/Ml Vial IV PUSH Q2H PRN CIWA > 15 Megestrol Acetate 20 mg 05/22/24 09:00 05/22/24 08:54 Megestrol Acetate (*Chemo) 20 Mg Tablet FEED TUBE 20 mg QAM JU Administration Miscellaneous Information 1 each 05/21/24 00:01 Nonformulary Drug (Buprenorphine 5 Mcg/Hour Patch Weekly) Can Patient Use From Home? Also XX 06/20/24 00:00 CLARIFY JU Nicotine 1 patch 05/21/24 21:30 05/22/24 08:54 Nicotine (*Pbkc) 21 Mg Patch TRANSDERM 1 patch DAILY JU Administration Non-Formulary Medication 1 patch 05/21/24 20:30 Buprenorphine TRANSDERM 06/20/24 20:29 Q7D JU Ondansetron HCl 4 mg 05/21/24 16:45 05/23/24 01:10 Ondansetron Inj 4 Mg/2 Ml Vial IV PUSH 4 mg Q6H PRN Administration Nausea And Vomiting Thiamine HCl 100 mg 05/22/24 09:00 05/22/24 08:53 Thiamine Hcl 100 Mg Tablet FEED TUBE 100 mg DAILY JU Administration Trazodone HCl 50 mg 05/21/24 18:29 05/22/24 20:11 Trazodone Hcl 50 Mg Tablet FEED TUBE 50 mg HS PRN Administration insomnia Radiology Results: ITS Impressions Abdomen/Pelvis CT 05/21/24 15:31 IMPRESSION: 1. Wall thickening of the rectosigmoid, consistent with colitis. Labs Labs: Laboratory Results - last 24 hr 05/22/24 05/22/24 05/22/24 05:53 14:59 18:01 WBC RBC Hgb Hct MCV MCH MCHC RDW Plt Count MPV Immature Gran % (Auto) Neut % (Auto) Lymph % (Auto) Nicholas % (Auto) Eos % (Auto) Baso % (Auto) Lymph # (Auto) Nicholas # (Auto) Eos # (Auto) Baso # (Auto) Abs Immat Gran (auto) Absolute Neuts (auto) Absolute Nucleated RBC Nucleated RBC % Platelet Estimate % Immature Plt Fraction Hypochromasia Macrocytosis Schistocytes Sodium Potassium Chloride Carbon Dioxide Anion Gap BUN Creatinine Estim Creat Clear Calc Estimated GFR Glucose POC Capillary Glucose 71 Lactic Acid Calcium Phosphorus Magnesium Iron TIBC % Saturation Ferritin Total Bilirubin AST ALT Alkaline Phosphatase Total Creatine Kinase Total Protein Albumin Vitamin B12 536.0 Vitamin D 25-Hydroxy Folate 15.9 Random Cortisol U Random Total Protein Ur Random Sodium Ur Random Potassium C. difficile (PCR) Negative 05/22/24 05/22/24 05/22/24 18:04 18:05 20:17 WBC RBC Hgb Hct MCV MCH MCHC RDW Plt Count MPV Immature Gran % (Auto) Neut % (Auto) Lymph % (Auto) Nicholas % (Auto) Eos % (Auto) Baso % (Auto) Lymph # (Auto) Nicholas # (Auto) Eos # (Auto) Baso # (Auto) Abs Immat Gran (auto) Absolute Neuts (auto) Absolute Nucleated RBC Nucleated RBC % Platelet Estimate % Immature Plt Fraction Hypochromasia Macrocytosis Schistocytes Sodium Potassium Chloride Carbon Dioxide Anion Gap BUN Creatinine Estim Creat Clear Calc Estimated GFR Glucose POC Capillary Glucose Lactic Acid Calcium Phosphorus Magnesium Iron 75 TIBC 233 L % Saturation 32 Ferritin 261.00 H Total Bilirubin AST ALT Alkaline Phosphatase Total Creatine Kinase 96 Total Protein Albumin Vitamin B12 Vitamin D 25-Hydroxy 23.4 Folate Random Cortisol U Random Total Protein 17 Ur Random Sodium 149 Ur Random Potassium 22.2 C. difficile (PCR) 05/23/24 05/23/24 05/23/24 00:04 05:06 05:47 WBC RBC Hgb Hct MCV MCH MCHC RDW Plt Count MPV Immature Gran % (Auto) Neut % (Auto) Lymph % (Auto) Nicholas % (Auto) Eos % (Auto) Baso % (Auto) Lymph # (Auto) Nicholas # (Auto) Eos # (Auto) Baso # (Auto) Abs Immat Gran (auto) Absolute Neuts (auto) Absolute Nucleated RBC Nucleated RBC % Platelet Estimate % Immature Plt Fraction Hypochromasia Macrocytosis Schistocytes Sodium Potassium Chloride Carbon Dioxide Anion Gap BUN Creatinine Estim Creat Clear Calc Estimated GFR Glucose POC Capillary Glucose 95 97 Lactic Acid Calcium Phosphorus Magnesium Iron TIBC % Saturation Ferritin Total Bilirubin AST ALT Alkaline Phosphatase Total Creatine Kinase 65 Total Protein Albumin Vitamin B12 Vitamin D 25-Hydroxy Folate Random Cortisol U Random Total Protein Ur Random Sodium Ur Random Potassium C. difficile (PCR) 05/23/24 05:56 WBC 3.5 L RBC 2.74 L Hgb 10.0 L Hct 30.2 L MCV 110.2 H MCH 36.5 H MCHC 33.1 RDW 13.6 Plt Count 94 L MPV 11.7 H Immature Gran % (Auto) 0.0 Neut % (Auto) 68.1 Lymph % (Auto) 27.1 Nicholas % (Auto) 1.1 L Eos % (Auto) 2.6 Baso % (Auto) 1.1 Lymph # (Auto) 0.95 Nicholas # (Auto) 0.0 L Eos # (Auto) 0.1 Baso # (Auto) 0.0 Abs Immat Gran (auto) 0.00 Absolute Neuts (auto) 2.4 Absolute Nucleated RBC 0.000 Nucleated RBC % 0.0 Platelet Estimate Slightly decreased % Immature Plt Fraction 13.0 H Hypochromasia 1+ Macrocytosis 2+ Schistocytes None seen Sodium 135 L Potassium 3.4 Chloride 99 Carbon Dioxide 31 H Anion Gap 5 BUN < 2 L Creatinine 0.60 L Estim Creat Clear Calc 72 Estimated GFR > 60 Glucose 72 POC Capillary Glucose Lactic Acid 1.7 Calcium 7.6 L Phosphorus 2.7 Magnesium 1.7 Iron 80 TIBC 200 L % Saturation 40 Ferritin 199.00 H Total Bilirubin 1.0 AST 324 H ALT 133 H Alkaline Phosphatase 136 H Total Creatine Kinase Total Protein 6.0 L Albumin 2.6 L Vitamin B12 Vitamin D 25-Hydroxy Folate Random Cortisol 9.90 U Random Total Protein Ur Random Sodium Ur Random Potassium C. difficile (PCR)
[2024-05-23] MEDS: DULoxetine HCL 60 MG CAPSULE.DR PO (08:28)
[2024-05-23] MEDS: FOLIC ACID 1 MG TABLET FEED TUBE (08:28)
[2024-05-23] MEDS: THIAMINE HCL 100 MG TABLET FEED TUBE (08:28)
[2024-05-23] MEDS: MEGESTROL ACETATE (*CHEMO) 20 MG TABLET FEED TUBE (08:28)
[2024-05-23] MEDS: HYDROcodone/acetaminophen (*CRX) 5-325 MG TABLET 1 TAB PO ×4 (08:29→21:14)
[2024-05-23] MEDS: NICOTINE (*PBKC) 21 MG PATCH 1 PATCH TRANSDERM (08:30)
--- NOTE | 2024-05-23 09:22 | P.PNGS_ITS ---
Progress Note: A&P Assessment and Plan (1) Colitis: Code(s): K52.9 - Noninfective gastroenteritis and colitis, unspecified Status: Acute Assessment and Plan: * Abdominal pain improving, and abd exam is benign. Continue antibiotics. GI planning colonoscopy tomorrow. (2) Pancytopenia: Code(s): D61.818 - Other pancytopenia Status: Acute Assessment and Plan: * Hematology consulted (3) Severe protein-calorie malnutrition: Code(s): E43 - Unspecified severe protein-calorie malnutrition Status: Acute (4) Opioid dependence with withdrawal: Code(s): F11.23 - Opioid dependence with withdrawal Status: Acute Plan I have discussed the patient's case and plan of care with Dr. Velez. Subjective Subjective Date/Time Seen: 05/23/24 09:22 Patient reports: no new complaints, feels better, pain is less, tolerating a regular diet, flatus, diarrhea and afebrile Interval history: Patient feeling better today. Reports RLQ abdominal pain only when engaging her core muscles with lying down or sitting up. When at rest, no abdominal pain and she had no abdominal pain overnight. No nausea this morning. No vomiting since admission. Tolerated tube feedings overnight. She is eating her breakfast now and tolerating this well. Exam Const: General: comfortable and no acute distress Nutritional Appearance: thin GI: Inspection: non-distended and no visible herniation GI Palp: Yes Soft to palpation, Yes Tenderness to palpation present (GI) (mild RLQ tenderness), Ye s No hepatosplenomegaly present and No Rebound tenderness present Auscultation: normal bowel sounds Objective Data Vital Signs Vital Signs: Vital Signs - 24 hr 05/22/24 12:00 05/22/24 12:44 05/22/24 13:35 Temperature 97.0 F L Pulse Rate 117 H 95 Pulse Rate [Apical] 106 H Respiratory Rate 24 H Blood Pressure 108/76 Pulse Oximetry 100 Oxygen Delivery 05/22/24 14:07 05/22/24 14:55 05/22/24 16:00 Temperature 97.6 F Pulse Rate 100 105 H Pulse Rate [Apical] Respiratory Rate 20 Blood Pressure 109/76 111/69 Pulse Oximetry 100 Oxygen Delivery 05/22/24 20:00 05/22/24 20:21 05/22/24 20:00 Temperature 98.4 F Pulse Rate 86 Pulse Rate [Apical] 89 Respiratory Rate 18 Blood Pressure 107/66 Pulse Oximetry 100 Oxygen Delivery Room Air 05/23/24 00:00 05/22/24 20:00 05/23/24 00:00 Temperature Pulse Rate 119 H 87 Pulse Rate [Apical] 76 Respiratory Rate Blood Pressure Pulse Oximetry Oxygen Delivery 05/23/24 04:00 05/23/24 04:00 05/23/24 05:02 Temperature 98.2 F Pulse Rate 77 86 Pulse Rate [Apical] 75 Respiratory Rate 18 Blood Pressure 101/75 Pulse Oximetry 100 Oxygen Delivery Intake/Output Intake/Output: Intake & Output 05/20/24 05/21/24 05/22/24 05/23/24 23:59 23:59 23:59 23:59 Intake Total 2330.4 3015.8 1477.5 Output Total 200 Balance 2330.4 2815.8 1477.5 Meds/Results Medications: Active Medications Generic Name Dose Route Start Last Admin Trade Name Freq PRN Reason Stop Dose Admin Acetaminophen 650 mg 05/22/24 12:46 Acetaminophen 325 Mg Tablet PO Q6H PRN Pain Rated 5 or Less Hydrocodone Bitart/Acetaminophen 1 tab 05/22/24 12:48 05/23/24 08:29 Hydrocodone/Acetaminophen (*Crx) 5-325 Mg Tablet PO 1 tab Q4H PRN Administration Pain Rated 6 or Greater Chlordiazepoxide HCl 25 mg 05/22/24 12:44 05/22/24 13:29 Chlordiazepoxide (*Crx) 25 Mg Capsule PO 25 mg Q6H PRN Administration Withdrawal CIWA 8-15 Duloxetine HCl 60 mg 05/22/24 09:00 05/23/24 08:28 Duloxetine Hcl 60 Mg Capsule.Dr PO 60 mg QAM JU Administration Folic Acid 1 mg 05/22/24 09:00 05/23/24 08:28 Folic Acid 1 Mg Tablet FEED TUBE 1 mg DAILY JU Administration Sodium Chloride 1,000 mls @ 70 mls/hr 05/21/24 17:50 05/23/24 00:48 Normal Saline Iv IV CONT 70 mls/hr .[id number] JU Administration Piperacillin/Tazobactam/Dextrose 3.375 gm in 50 mls @ 100 mls/hr 05/21/24 18:00 05/23/24 05:35 Zosyn 3.375 Gm/Ns 50 Ml IVPB Infused Q6H JU Infusion Calcium Gluconate 2,000 mg in 100 mls @ 100 mls/hr 05/23/24 08:32 Calcium Gluc 2,000 Mg/Ns 100ml IVPB 05/23/24 09:31 ONCE ONE Lorazepam 2 mg 05/22/24 12:44 Lorazepam Inj (*Crx) 2 Mg/Ml Vial IV PUSH Q2H PRN CIWA > 15 Megestrol Acetate 20 mg 05/22/24 09:00 05/23/24 08:28 Megestrol Acetate (*Chemo) 20 Mg Tablet FEED TUBE 20 mg QAM JU Administration Miscellaneous Information 1 each 05/21/24 00:01 Nonformulary Drug (Buprenorphine 5 Mcg/Hour Patch Weekly) Can Patient Use From Home? Also XX 06/20/24 00:00 CLARIFY JU Nicotine 1 patch 05/21/24 21:30 05/23/24 08:30 Nicotine (*Pbkc) 21 Mg Patch TRANSDERM 1 patch DAILY JU Administration Non-Formulary Medication 1 patch 05/21/24 20:30 Buprenorphine TRANSDERM 06/20/24 20:29 Q7D JU Ondansetron HCl 4 mg 05/21/24 16:45 05/23/24 08:27 Ondansetron Inj 4 Mg/2 Ml Vial IV PUSH 4 mg Q6H PRN Administration Nausea And Vomiting Thiamine HCl 100 mg 05/22/24 09:00 05/23/24 08:28 Thiamine Hcl 100 Mg Tablet FEED TUBE 100 mg DAILY JU Administration Trazodone HCl 50 mg 05/21/24 18:29 05/22/24 20:11 Trazodone Hcl 50 Mg Tablet FEED TUBE 50 mg HS PRN Administration insomnia Radiology Results: ITS Impressions Abdomen/Pelvis CT 05/21/24 15:31 IMPRESSION: 1. Wall thickening of the rectosigmoid, consistent with colitis. Labs Labs: Laboratory Results - last 24 hr 05/22/24 05/22/24 05/22/24 14:59 18:01 18:04 WBC RBC Hgb Hct MCV MCH MCHC RDW Plt Count MPV Immature Gran % (Auto) Neut % (Auto) Lymph % (Auto) [place] % (Auto) Eos % (Auto) Baso % (Auto) Lymph # (Auto) [place] # (Auto) Eos # (Auto) Baso # (Auto) Abs Immat Gran (auto) Absolute Neuts (auto) Absolute Nucleated RBC Nucleated RBC % Platelet Estimate % Immature Plt Fraction Hypochromasia Macrocytosis Schistocytes Sodium Potassium Chloride Carbon Dioxide Anion Gap BUN Creatinine Estim Creat Clear Calc Estimated GFR Glucose POC Capillary Glucose 71 Lactic Acid Calcium Phosphorus Magnesium Iron TIBC % Saturation Ferritin Total Bilirubin AST ALT Alkaline Phosphatase Total Creatine Kinase 96 Total Protein Albumin Vitamin D 25-Hydroxy Random Cortisol U Random Total Protein Ur Random Sodium Ur Random Potassium C. difficile (PCR) Negative 05/22/24 05/22/24 05/23/24 18:05 20:17 00:04 WBC RBC Hgb Hct MCV MCH MCHC RDW Plt Count MPV Immature Gran % (Auto) Neut % (Auto) Lymph % (Auto) [place] % (Auto) Eos % (Auto) Baso % (Auto) Lymph # (Auto) [place] # (Auto) Eos # (Auto) Baso # (Auto) Abs Immat Gran (auto) Absolute Neuts (auto) Absolute Nucleated RBC Nucleated RBC % Platelet Estimate % Immature Plt Fraction Hypochromasia Macrocytosis Schistocytes Sodium Potassium Chloride Carbon Dioxide Anion Gap BUN Creatinine Estim Creat Clear Calc Estimated GFR Glucose POC Capillary Glucose 95 Lactic Acid Calcium Phosphorus Magnesium Iron 75 TIBC 233 L % Saturation 32 Ferritin 261.00 H Total Bilirubin AST ALT Alkaline Phosphatase Total Creatine Kinase Total Protein Albumin Vitamin D 25-Hydroxy 23.4 Random Cortisol U Random Total Protein 17 Ur Random Sodium 149 Ur Random Potassium 22.2 C. difficile (PCR) 05/23/24 05/23/24 05/23/24 05:06 05:47 05:56 WBC 3.5 L RBC 2.74 L Hgb 10.0 L Hct 30.2 L MCV 110.2 H MCH 36.5 H MCHC 33.1 RDW 13.6 Plt Count 94 L MPV 11.7 H Immature Gran % (Auto) 0.0 Neut % (Auto) 68.1 Lymph % (Auto) 27.1 [place] % (Auto) 1.1 L Eos % (Auto) 2.6 Baso % (Auto) 1.1 Lymph # (Auto) 0.95 [place] # (Auto) 0.0 L Eos # (Auto) 0.1 Baso # (Auto) 0.0 Abs Immat Gran (auto) 0.00 Absolute Neuts (auto) 2.4 Absolute Nucleated RBC 0.000 Nucleated RBC % 0.0 Platelet Estimate Slightly decreased % Immature Plt Fraction 13.0 H Hypochromasia 1+ Macrocytosis 2+ Schistocytes None seen Sodium 135 L Potassium 3.4 Chloride 99 Carbon Dioxide 31 H Anion Gap 5 BUN < 2 L Creatinine 0.60 L Estim Creat Clear Calc 72 Estimated GFR > 60 Glucose 72 POC Capillary Glucose 97 Lactic Acid 1.7 Calcium 7.6 L Phosphorus 2.7 Magnesium 1.7 Iron 80 TIBC 200 L % Saturation 40 Ferritin 199.00 H Total Bilirubin 1.0 AST 324 H ALT 133 H Alkaline Phosphatase 136 H Total Creatine Kinase 65 Total Protein 6.0 L Albumin 2.6 L Vitamin D 25-Hydroxy Random Cortisol 9.90 U Random Total Protein Ur Random Sodium Ur Random Potassium C. difficile (PCR)
[2024-05-23] MEDS: CALCIUM GLUC 2,000 MG/NS 100ML 2,000 MG/100 ML BAG 100 MG IVPB (09:49)
[2024-05-23 12:02] LABS: Glucose Point of Care 123 mg/dl (65-105)
--- NOTE | 2024-05-23 16:47 | P.PNGI_ITS ---
Progress Note: A&P Assessment and Plan (1) Elevated LFTs: Code(s): R79.89 - Other specified abnormal findings of blood chemistry Status: Acute Assessment and Plan: Patient with multisystemic problems, including pancytopenia, multiple electrolyte disturbances, malnutrition, chronic diarrhea and a suspicion of colitis. Patient will be prepared for colonoscopy and mucosal biopsies tomorrow to rule out microscopic colitis which can explain some of the abnormalities. Hematology consultation was recommended yesterday to evaluate the cause of pancytopenia. (2) Abdominal pain: Code(s): R10.9 - Unspecified abdominal pain Status: Acute (3) Colitis: Code(s): K52.9 - Noninfective gastroenteritis and colitis, unspecified Status: Acute (4) Gastroenteritis: Code(s): K52.9 - Noninfective gastroenteritis and colitis, unspecified Status: Acute (5) Hypomagnesemia: Code(s): E83.42 - Hypomagnesemia Status: Acute (6) Acute hypokalemia: Code(s): E87.6 - Hypokalemia Status: Acute Subjective Date/time seen: 05/23/24 16:47 Interval history: no new symptoms, patient continues stable. Objective Data Vital Signs Vital Signs: Vital Signs - 24 hr 05/22/24 20:00 05/22/24 20:21 05/22/24 20:00 Temperature 98.4 F Pulse Rate 86 Pulse Rate [Apical] 89 Respiratory Rate 18 Blood Pressure 107/66 Pulse Oximetry 100 Oxygen Delivery Room Air 05/23/24 00:00 05/22/24 20:00 05/23/24 00:00 Temperature Pulse Rate 119 H 87 Pulse Rate [Apical] 76 Respiratory Rate Blood Pressure Pulse Oximetry Oxygen Delivery 05/23/24 04:00 05/23/24 04:00 05/23/24 05:02 Temperature 98.2 F Pulse Rate 77 86 Pulse Rate [Apical] 75 Respiratory Rate 18 Blood Pressure 101/75 Pulse Oximetry 100 Oxygen Delivery 05/23/24 08:30 05/23/24 08:00 05/23/24 12:00 Temperature Pulse Rate 88 97 Pulse Rate [Apical] Respiratory Rate Blood Pressure Pulse Oximetry Oxygen Delivery Room Air 05/23/24 14:00 05/23/24 16:00 Temperature 97.7 F Pulse Rate 89 81 Pulse Rate [Apical] Respiratory Rate 12 Blood Pressure 105/70 Pulse Oximetry 100 Oxygen Delivery Intake/Output Intake/Output: Intake & Output 05/20/24 05/21/24 05/22/24 05/23/24 23:59 23:59 23:59 23:59 Intake Total 2330.4 3015.8 2006.5 Output Total 200 Balance 2330.4 2815.8 2007.5 Meds/Results Medications: Active Medications Generic Name Dose Route Start Last Admin Trade Name Freq PRN Reason Stop Dose Admin Acetaminophen 650 mg 05/22/24 12:46 Acetaminophen 325 Mg Tablet PO Q6H PRN Pain Rated 5 or Less Hydrocodone Bitart/Acetaminophen 1 tab 05/22/24 12:48 05/23/24 13:00 Hydrocodone/Acetaminophen (*Crx) 5-325 Mg Tablet PO 1 tab Q4H PRN Administration Pain Rated 6 or Greater Bisacodyl 10 mg 05/23/24 18:00 Bisacodyl 5 Mg Tablet Ec PO 05/23/24 18:01 ONCE ONE Chlordiazepoxide HCl 25 mg 05/22/24 12:44 05/22/24 13:29 Chlordiazepoxide (*Crx) 25 Mg Capsule PO 25 mg Q6H PRN Administration Withdrawal CIWA 8-15 Duloxetine HCl 60 mg 05/22/24 09:00 05/23/24 08:28 Duloxetine Hcl 60 Mg Capsule.Dr PO 60 mg QAM JU Administration Folic Acid 1 mg 05/22/24 09:00 05/23/24 08:28 Folic Acid 1 Mg Tablet FEED TUBE 1 mg DAILY JU Administration Sodium Chloride 1,000 mls @ 70 mls/hr 05/21/24 17:50 05/23/24 00:48 Normal Saline Iv IV CONT 70 mls/hr .[id number] JU Administration Piperacillin/Tazobactam/Dextrose 3.375 gm in 50 mls @ 100 mls/hr 05/21/24 18:00 05/23/24 13:29 Zosyn 3.375 Gm/Ns 50 Ml IVPB Infused Q6H JU Infusion Lorazepam 2 mg 05/22/24 12:44 Lorazepam Inj (*Crx) 2 Mg/Ml Vial IV PUSH Q2H PRN CIWA > 15 Magnesium Citrate 300 ml 05/24/24 03:00 Magnesium Citrate 300 Ml Btl PO 05/24/24 03:01 ONCE ONE Megestrol Acetate 20 mg 05/22/24 09:00 05/23/24 08:28 Megestrol Acetate (*Chemo) 20 Mg Tablet FEED TUBE 20 mg QAM JU Administration Miscellaneous Information 1 each 05/21/24 00:01 Nonformulary Drug (Buprenorphine 5 Mcg/Hour Patch Weekly) Can Patient Use From Home? Also XX 06/20/24 00:00 CLARIFY [facility] Nicotine 1 patch 05/21/24 21:30 05/23/24 08:30 Nicotine (*Pbkc) 21 Mg Patch TRANSDERM 1 patch DAILY JU Administration Non-Formulary Medication 1 patch 05/21/24 20:30 Buprenorphine TRANSDERM 06/20/24 20:29 Q7D JU Ondansetron HCl 4 mg 05/21/24 16:45 05/23/24 08:27 Ondansetron Inj 4 Mg/2 Ml Vial IV PUSH 4 mg Q6H PRN Administration Nausea And Vomiting Ondansetron HCl 4 mg 05/23/24 16:41 Ondansetron Hcl Odt 4 Mg Tablet PO Q8H PRN Nausea And Vomiting Polyethylene Glycol 238 gm 05/23/24 22:00 Polyethylene Glycol 3350 238 Gm Bottle PO 05/23/24 22:01 ONCE ONE Thiamine HCl 100 mg 05/22/24 09:00 05/23/24 08:28 Thiamine Hcl 100 Mg Tablet FEED TUBE 100 mg DAILY JU Administration Trazodone HCl 50 mg 05/21/24 18:29 05/22/24 20:11 Trazodone Hcl 50 Mg Tablet FEED TUBE 50 mg HS PRN Administration insomnia Radiology Results: ITS Impressions Abdomen/Pelvis CT 05/21/24 15:31 IMPRESSION: 1. Wall thickening of the rectosigmoid, consistent with colitis. Labs Labs: Laboratory Results - last 24 hr 05/22/24 05/22/24 05/22/24 18:01 18:04 18:05 WBC RBC Hgb Hct MCV MCH MCHC RDW Plt Count MPV Immature Gran % (Auto) Neut % (Auto) Lymph % (Auto) [place] % (Auto) Eos % (Auto) Baso % (Auto) Lymph # (Auto) [place] # (Auto) Eos # (Auto) Baso # (Auto) Abs Immat Gran (auto) Absolute Neuts (auto) Absolute Nucleated RBC Nucleated RBC % Platelet Estimate % Immature Plt Fraction Hypochromasia Macrocytosis Schistocytes Sodium Potassium Chloride Carbon Dioxide Anion Gap BUN Creatinine Estim Creat Clear Calc Estimated GFR Glucose POC Capillary Glucose 71 Lactic Acid Calcium Phosphorus Magnesium Iron 75 TIBC 233 L % Saturation 32 Ferritin 261.00 H Total Bilirubin AST ALT Alkaline Phosphatase Total Creatine Kinase 96 Total Protein Albumin Vitamin D 25-Hydroxy 23.4 Random Cortisol U Random Total Protein Ur Random Sodium Ur Random Potassium 05/22/24 05/23/24 05/23/24 20:17 00:04 05:06 WBC RBC Hgb Hct MCV MCH MCHC RDW Plt Count MPV Immature Gran % (Auto) Neut % (Auto) Lymph % (Auto) [place] % (Auto) Eos % (Auto) Baso % (Auto) Lymph # (Auto) [place] # (Auto) Eos # (Auto) Baso # (Auto) Abs Immat Gran (auto) Absolute Neuts (auto) Absolute Nucleated RBC Nucleated RBC % Platelet Estimate % Immature Plt Fraction Hypochromasia Macrocytosis Schistocytes Sodium Potassium Chloride Carbon Dioxide Anion Gap BUN Creatinine Estim Creat Clear Calc Estimated GFR Glucose POC Capillary Glucose 95 97 Lactic Acid Calcium Phosphorus Magnesium Iron TIBC % Saturation Ferritin Total Bilirubin AST ALT Alkaline Phosphatase Total Creatine Kinase Total Protein Albumin Vitamin D 25-Hydroxy Random Cortisol U Random Total Protein 17 Ur Random Sodium 149 Ur Random Potassium 22.2 05/23/24 05/23/24 05/23/24 05:47 05:56 11:58 WBC 3.5 L RBC 2.74 L Hgb 10.0 L Hct 30.2 L MCV 110.2 H MCH 36.5 H MCHC 33.1 RDW 13.6 Plt Count 94 L MPV 11.7 H Immature Gran % (Auto) 0.0 Neut % (Auto) 68.1 Lymph % (Auto) 27.1 [place] % (Auto) 1.1 L Eos % (Auto) 2.6 Baso % (Auto) 1.1 Lymph # (Auto) 0.95 [place] # (Auto) 0.0 L Eos # (Auto) 0.1 Baso # (Auto) 0.0 Abs Immat Gran (auto) 0.00 Absolute Neuts (auto) 2.4 Absolute Nucleated RBC 0.000 Nucleated RBC % 0.0 Platelet Estimate Slightly decreased % Immature Plt Fraction 13.0 H Hypochromasia 1+ Macrocytosis 2+ Schistocytes None seen Sodium 135 L Potassium 3.4 Chloride 99 Carbon Dioxide 31 H Anion Gap 5 BUN < 2 L Creatinine 0.60 L Estim Creat Clear Calc 72 Estimated GFR > 60 Glucose 72 POC Capillary Glucose 123 H Lactic Acid 1.7 Calcium 7.6 L Phosphorus 2.7 Magnesium 1.7 Iron 80 TIBC 200 L % Saturation 40 Ferritin 199.00 H Total Bilirubin 1.0 AST 324 H ALT 133 H Alkaline Phosphatase 136 H Total Creatine Kinase 65 Total Protein 6.0 L Albumin 2.6 L Vitamin D 25-Hydroxy Random Cortisol 9.90 U Random Total Protein Ur Random Sodium Ur Random Potassium
[2024-05-23 17:29] LABS: Glucose Point of Care 103 mg/dl (65-105)
[2024-05-23] MEDS: BISACODYL 5 MG TABLET EC 10 MG PO (17:33)
[2024-05-23] MEDS: polyethylene glycoL 3350 238 GM BOTTLE PO (19:50)
[2024-05-23] MEDS: traZODone HCL 50 MG TABLET FEED TUBE (19:50)
--- NOTE | 2024-05-23 19:52 | P.CONONC_ITS ---
HPI - Date of Consult Date/Time: 05/23/24 19:52 Requesting Physician: Ruba Nelson MD Primary Care Provider: Mo Mitchell MD - Consult Narrative Reason for consult: Pancytopenia Narrative: Ester León is a 34 year old female with history of depression, anxiety and anorexia with significant weight loss status post G-tube placement in May 2023 with some weight gain. She came into the hospital with generalized weakness abdominal pain and nausea and vomiting. CT scan abdomen and pelvis showed rectosigmoid wall thickening consistent with colitis. Labs showed WBC 3.5 [place] hemoglobin [place] 10 [place] [address]. She drinks hard liquor 4 to 5 times a week. Denies any history of liver disease. L Review of Systems - Review of Systems All systems reviewed & are unremarkable except as noted in HPI and bel - Neurologic Reports weakness PMFSH Medical History: Medical History (Last Updated 05/22/24 @ 12:20 by Braulio Prince MD) Avoidant/restrictive food intake disorder Cannabis abuse Depression with anxiety Elevated LFTs Mitral valve prolapse Surgical History: Surgical History (Last Reviewed 05/22/24 @ 11:39 by NOEL Chase) History of percutaneous endoscopic gastrostomy Family History: Family History (Last Reviewed 05/22/24 @ 11:39 by NOEL Chase) Mother Heart attack Grandparent Cancer - Social History Social History: Social History (Last Reviewed 05/22/24 @ 11:39 by NOEL Chase) Alcohol Use: Alcohol intake: current Drinks per week: 4 Alcohol use details: States she drinks 1 pint a week Substance Use: Substance use: current Substance use type: marijuana Other substance usage details: 1 pint of Rum/week; last intake 03/25/24 Last use: 10/31/23 Others: Spiritual care concerns: No Agree to blood products: Yes Living Arrangements: Living arrangements: with family Oppucation/Education: Occupation/Education: unemployed Smoking Status: Smoking status: Current every day smoker Tobacco type: cigarettes Smoking Pack-years: Smoking packs per day: 0.5 Smoking cigarettes per day: 10.0 Years smoked: 17 Smoking pack-years: 8.50 Social Determinants of Health: Do You Feel Safe in your Home?: Yes Has the Lack of Transportation Kept You From Medical Appointments or From Getting Medications?: No Within the Past 12 Months, Were You Worried Whether Your Food Would Run Out Before You Got Money to Buy More?: Never True What is Your Housing Situation Today?: I Have Housing Are You Worried That in the Next 2 Months, You May Not Have Your Own Housing to Live In?: No Do You Have Trouble Paying Your Heating Or Electricity Bill?: No Do You Have Trouble Paying For Medicines?: No Are You Currently Unemployed and Looking for Work?: No Highest Level of Education Completed: High School Diploma/GED Are You Interested in More Education?: No Do You Have Trouble With Childcare or the Care of a Family Member?: No Exam - Vital Signs Vital Signs - 24 hr 05/22/24 20:00 05/22/24 20:21 05/22/24 20:00 Temperature 36.9 C Pulse Rate 86 Pulse Rate [Apical] 89 Respiratory Rate 18 Blood Pressure 107/66 Pulse Oximetry 100 Oxygen Delivery Room Air 05/23/24 00:00 05/22/24 20:00 05/23/24 00:00 Temperature Pulse Rate 119 H 87 Pulse Rate [Apical] 76 Respiratory Rate Blood Pressure Pulse Oximetry Oxygen Delivery 05/23/24 04:00 05/23/24 04:00 05/23/24 05:02 Temperature 36.8 C Pulse Rate 77 86 Pulse Rate [Apical] 75 Respiratory Rate 18 Blood Pressure 101/75 Pulse Oximetry 100 Oxygen Delivery 05/23/24 08:30 05/23/24 08:00 05/23/24 12:00 Temperature Pulse Rate 88 97 Pulse Rate [Apical] Respiratory Rate Blood Pressure Pulse Oximetry Oxygen Delivery Room Air 05/23/24 14:00 05/23/24 16:00 05/23/24 19:45 Temperature 36.5 C 36.4 C L Pulse Rate 89 81 78 Pulse Rate [Apical] Respiratory Rate 12 16 Blood Pressure 105/70 112/75 Pulse Oximetry 100 100 Oxygen Delivery - Exam HEENT: EOMI, PERRLA, mucous membranes moist and pink Neck: supple Lungs: clear to auscultation, normal air movement Heart: no murmurs, gallops, or rubs, regular rhythm, regular rate Abdomen: abdomen soft, non-distended, normal bowel sounds Extremities: normal pulses Integumentary: no abnormalities Neurological: normal speech Psychological: mental status NL, mood NL - Lab Results Laboratory Last Values WBC 3.5 K/mm3 (4.5-10.0) L 05/23/24 05:56 RBC 2.74 M/mm3 (4.2-5.4) L 05/23/24 05:56 Hgb 10.0 g/dL (12.0-15.0) L 05/23/24 05:56 Hct 30.2 % (37.0-47.0) L 05/23/24 05:56 MCV 110.2 fl (80-100) H 05/23/24 05:56 MCH 36.5 pg (26-34) H 05/23/24 05:56 MCHC 33.1 g/dl (32-36) 05/23/24 05:56 RDW 13.6 % (11.5-14.5) 05/23/24 05:56 Plt Count 94 k/mm3 (150-375) L 05/23/24 05:56 MPV 11.7 fl (7.4-10.4) H 05/23/24 05:56 Immature Gran % (Auto) 0.0 % (0-0.5) 05/23/24 05:56 Neut % (Auto) 68.1 % (45.5-73.1) 05/23/24 05:56 Lymph % (Auto) 27.1 % (18.3-44.2) 05/23/24 05:56 [place] % (Auto) 1.1 % (2.6-8.5) L 05/23/24 05:56 Eos % (Auto) 2.6 % (0-4.4) 05/23/24 05:56 Baso % (Auto) 1.1 % (0.2-1.2) 05/23/24 05:56 Lymph # (Auto) 0.95 K/mm3 (0.9-3.2) 05/23/24 05:56 [place] # (Auto) 0.0 K/mm3 (0.1-0.6) L 05/23/24 05:56 Eos # (Auto) 0.1 K/mm3 (0-0.3) 05/23/24 05:56 Baso # (Auto) 0.0 K/mm3 (0.0-0.1) 05/23/24 05:56 Abs Immat Gran (auto) 0.00 K/mm3 (0.00-0.031) 05/23/24 05:56 Absolute Neuts (auto) 2.4 K/mm3 (1.3-6.7) 05/23/24 05:56 Absolute Nucleated RBC 0.000 K/mm3 (0.0-0.012) 05/23/24 05:56 Nucleated RBC % 0.0 % (0.0-0.2) 05/23/24 05:56 Platelet Estimate Slightly decreased (Adequate) 05/23/24 05:56 % Immature Plt Fraction 13.0 % (0.9-11.2) H 05/23/24 05:56 Hypochromasia 1+ 05/23/24 05:56 Macrocytosis 2+ (NORMAL) 05/23/24 05:56 Schistocytes None seen 05/23/24 05:56 PT 13.2 Seconds (11.1-14.7) 05/21/24 13:43 INR 1.0 05/21/24 13:43 APTT 26.2 Seconds (22.3-36.8) 05/21/24 13:43 Sodium 135 mmol/L (137-145) L 05/23/24 05:56 Potassium 3.4 mmol/L (3.4-5.0) 05/23/24 05:56 Chloride 99 mmol/L (98-107) 05/23/24 05:56 Carbon Dioxide 31 mmol/L (22-30) H 05/23/24 05:56 Anion Gap 5 mmol/L (4-12) 05/23/24 05:56 BUN < 2 mg/dL (7-17) L 05/23/24 05:56 Creatinine 0.60 mg/dL (0.7-1.0) L 05/23/24 05:56 Estim Creat Clear Calc 72 ml/min 05/23/24 05:56 Estimated GFR > 60 (59-) 05/23/24 05:56 Glucose 72 mg/dL (65-110) 05/23/24 05:56 POC Capillary Glucose 103 mg/dl (65-105) 05/23/24 17:20 Lactic Acid 1.7 mmol/L (0.7-2.0) 05/23/24 05:56 Calcium 7.6 mg/dL (8.4-10.2) L 05/23/24 05:56 Phosphorus 2.7 mg/dL (2.5-4.5) 05/23/24 05:56 Magnesium 1.7 mg/dL (1.6-2.3) 05/23/24 05:56 Iron 80 ug/dL (37-170) 05/23/24 05:56 TIBC 200 ug/dL (261-462) L 05/23/24 05:56 % Saturation 40 % (20-50) 05/23/24 05:56 Ferritin 199.00 ng/mL (6.24-137) H 05/23/24 05:56 Total Bilirubin 1.0 mg/dL (0.2-1.3) 05/23/24 05:56 AST 324 U/L (14-36) H 05/23/24 05:56 ALT 133 U/L (6-35) H 05/23/24 05:56 Alkaline Phosphatase 136 U/L (38-126) H 05/23/24 05:56 Total Creatine Kinase 65 U/L (30-135) 05/23/24 05:47 Troponin I < 0.012 ng/mL (0.000-0.034) 05/21/24 13:43 Total Protein 6.0 g/dL (6.3-8.2) L 05/23/24 05:56 Albumin 2.6 g/dL (3.5-5.1) L 05/23/24 05:56 Lipase 106 U/L (23-300) 05/21/24 13:43 Vitamin B12 536.0 pg/mL (239-931) 05/22/24 05:53 Vitamin D 25-Hydroxy 23.4 ng/mL 05/22/24 18:05 Folate 15.9 ng/mL (2.76->20) 05/22/24 05:53 Random Cortisol 9.90 ug/dL 05/23/24 05:56 Urine Color Dark yellow (Yellow) 05/21/24 14:53 Urine Appearance Cloudy (Clear) H 05/21/24 14:53 Urine pH 5.5 (5.0-9.0) 05/21/24 14:53 Ur Specific [place] 1.023 (1.001-1.035) 05/21/24 14:53 Urine Protein 2+ mg/dL (Negative) H 05/21/24 14:53 Urine Glucose (UA) Negative mg/dL (Negative) 05/21/24 14:53 Urine Ketones Trace mg/dL (Negative) H 05/21/24 14:53 Ur Blood (Man) Negative (Negative) 05/21/24 14:53 Urine Nitrate Negative (Negative) 05/21/24 14:53 Urine Bilirubin 2+ (Negative) H 05/21/24 14:53 Urine Urobilinogen 1.0 mg/dL (<2.0) 05/21/24 14:53 Leukocyte Esterase Rfl 1+ BECKY/UL (Negative) H 05/21/24 14:53 Urine RBC 3-5 /hpf (0-2) H 05/21/24 14:53 Urine WBC 11-20 /hpf (0-3) H 05/21/24 14:53 Ur Squamous Epith Cells Occasional /hpf (Few) 05/21/24 14:53 Urine Bacteria None seen /hpf 05/21/24 14:53 Urine Casts 11-20 05/21/24 14:53 Hyaline Casts Present /lpf (None) 05/21/24 14:53 U Random Total Protein 17 mg/dL 05/22/24 20:17 Ur Random Sodium 149 meq/L 05/22/24 20:17 Ur Random Potassium 22.2 meq/L 05/22/24 20:17 POC Urine HCG, Qual Negative (Negative) 05/21/24 14:55 Urine Opiates Screen Negative (Negative) 05/21/24 14:53 Urine Methadone Screen Negative (Negative) 05/21/24 14:53 Ur Barbiturates Screen Negative (Negative) 05/21/24 14:53 Ur Phencyclidine Scrn Negative (Negative) 05/21/24 14:53 Ur Amphetamine Screen Negative (Negative) 05/21/24 14:53 U Benzodiazepines Scrn Negative (Negative) 05/21/24 14:53 Urine Cocaine Screen Negative (Negative) 05/21/24 14:53 U Cannabinoids Screen Negative (Negative) 05/21/24 14:53 C. difficile (PCR) Negative (NEGATIVE) 05/22/24 14:59 Meds Home Medications Medication Instructions Recorded Confirmed Type duloxetine 60 mg capsule,delayed 60 mg PO QAM #30 caps 02/08/24 05/21/24 Rx release ondansetron 8 mg disintegrating 8 mg PO Q8H PRN nausea and 02/08/24 05/21/24 Rx tablet vomiting #90 tabs ferrous sulfate 325 mg (65 mg 325 mg PO BID 03/28/24 05/21/24 History iron) tablet,delayed release folic acid 1 mg tablet 1 mg feeding tube DAILY 03/28/24 05/21/24 History megestrol 20 mg tablet 20 mg feeding tube QAM 03/28/24 05/21/24 History multivitamin with folic acid 400 1 tablet PO QAM 03/28/24 05/21/24 History mcg tablet (Thera) thiamine HCl (vitamin B1) 100 mg 100 mg feeding tube DAILY 03/28/24 05/21/24 History tablet trazodone 50 mg tablet 50 mg feeding tube HS PRN insomnia 03/28/24 05/21/24 History vitamin B complex (Vitamins B 1 cap feeding tube QAM 03/28/24 05/21/24 History Complex capsule) potassium chloride 10 mEq 10 meq PO DAILY #30 caps 03/29/24 05/21/24 Rx capsule,extended release buprenorphine 5 mcg/hour weekly 1 patch transdermal Q7D chronic 05/14/24 1 Rx transdermal patch pain 28 days #4 ea Allergies Allergy/AdvReac Type Severity Reaction Status Date / Time latex Allergy Rash Verified 05/21/24 13:27 Results - Labs CBC & Chem 7: 05/23/24 05:56 05/23/24 05:56 Labs: Short CBC 05/23/24 Range/Units 05:56 WBC 3.5 L (4.5-10.0) K/mm3 Hgb 10.0 L (12.0-15.0) g/dL Hct 30.2 L (37.0-47.0) % Plt Count 94 L (150-375) k/mm3 BMP 05/23/24 05:56 Sodium 135 L Potassium 3.4 Chloride 99 Carbon Dioxide 31 H BUN < 2 L Creatinine 0.60 L Glucose 72 Calcium 7.6 L Cardiac Enzymes 05/23/24 Range/Units 05:47 Total Creatine Kinase 65 (30-135) U/L Liver Function 05/23/24 Range/Units 05:56 Total Bilirubin 1.0 (0.2-1.3) mg/dL AST 324 H (14-36) U/L ALT 133 H (6-35) U/L Alkaline Phosphatase 136 H (38-126) U/L Albumin 2.6 L (3.5-5.1) g/dL Assessment and Plan - Additional Plan Pancytopenia. Patient is a 34-year-old history of depression anxiety and at status post G-tube placement in May 2023 with some weight gain. Patient also has some dysphagia. Patient also has a history of drinking hard liquor 4 times a week. She came in with pancytopenia. Other labs showed elevated serum ferritin and liver enzymes with normal creatinine. Vitamin B12 level was normal. I have reviewed the labs with patient in detail. I am concerned about underlying bone marrow suppression due to alcohol consumption as well as hepatosplenomegaly. I have recommended abstinence from drinking. No need for bone marrow biopsy testing at this time. We will check soluble transferrin rece ptor and methylmalonic acid level. I will follow up with her in the office for further management. I have answered all the questions to patient's satisfaction.
[2024-05-23 23:50] LABS: Glucose Point of Care 91 mg/dl (65-105)
[2024-05-24] VITALS (13 sets, daily range): BP systolic 95–127; BP diastolic 53–86; PULSE 57–126; RESP 18–20; TEMP 36.3–36.6; O2SAT 88–100
[2024-05-24] MEDS: HYDROcodone/acetaminophen (*CRX) 5-325 MG TABLET 1 TAB PO ×5 (02:30→19:50)
[2024-05-24] MEDS: MAGNESIUM CITRATE 300 ML BTL PO (03:57)
[2024-05-24] MEDS: PIPERACILLN/TAZ 3.375GM/NS50ML 3.375 GM/50 ML BAG IVPB ×2 (04:58→12:11)
[2024-05-24] MEDS: ONDANSETRON INJ 4 MG/2 ML VIAL IV PUSH ×3 (04:58→19:48)
[2024-05-24 06:20] LABS: Creatine Kinase 64 U/L (30-135)
[2024-05-24 06:58] LABS: Glucose Point of Care 90 mg/dl (65-105)
[2024-05-24 08:28] LABS: Alpha-1-Antitrypsin, QN 156 mg/dL (83-199); Ceruloplasmin 23 mg/dL (14-48)
--- NOTE | 2024-05-24 08:43 | P.PNIM_ITS ---
Progress Note: A&P Assessment and Plan (1) Colitis: Code(s): K52.9 - Noninfective gastroenteritis and colitis, unspecified Status: Acute (2) Pancytopenia: Code(s): D61.818 - Other pancytopenia Status: Acute (3) Electrolyte abnormality: Code(s): E87.8 - Other disorders of electrolyte and fluid balance, not elsewhere classified Status: Acute Plan the patient Presented with nausea vomiting abdominal pain. CT abdomen pelvis showing wall thickening in the rectosigmoid area consistent with colitis. WBC 4 K lactic acid 7 on presentation which improved with IV hydration. She also had severe hypokalemia 0.3 on admission and hypomagnesemia. Electrolytes were replaced as needed. Blood culture no growth to date. Urine culture started on Zosyn. General surgery was consulted. GI consulted plan for colonoscopy today. Stool studies reviewed opiate dependence on buprenorphine patch. For current morphine IV p.r.n.. 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 Will switch to oral after EGD and colonoscopy finding Failure to thrive requiring chronic G-tube and tube feed on May 2023 Pancytopenia cytopenia anemia Oncology consult history of anxiety depression History of anorexia Alcohol use DVT prophylaxis SCDs Code status full code Subjective Date/time seen: 05/24/24 08:43 Interval history: No overnight events. Feels okay. Going for EGD and colonoscopy today. Review of Systems Review of Systems: All systems reviewed & are unremarkable except as noted in HPI and below Exam Narrative: GENERAL: Pleasant, in no acute distress. Well-nourished. - EYES: EOMI. Anicteric. - HENT: Moist mucous membranes. - LUNGS: Clear to auscultation bilateral ly, no wheezing, rhonchi, or rales. - CARDIOVASCULAR: Regular rate and rhyth m. No murmur. No JVD. - ABDOMEN: Soft, non-tender and non-dist ended. No palpable masses. Peg tube inside - EXTREMITIES: No edema. Peripheral puls es 2+. Non-tender. - NEUROLOGIC: No focal neurological defi cits. CN II-XII grossly intact. - PSYCHIATRIC: Awake, Alert and oriented x 3. Appropriate mood and affect. - SKIN: No rashes or lesions. Warm. - LYMPH: No cervical lymphadenopathy. Objective Data Vital Signs Vital Signs: Vital Signs - 24 hr 05/23/24 12:00 05/23/24 14:00 05/23/24 16:00 Temperature 97.7 F Pulse Rate 97 89 81 Pulse Rate [Apical] Respiratory Rate 12 Blood Pressure 105/70 Pulse Oximetry 100 Oxygen Delivery 05/23/24 19:45 05/23/24 20:00 05/23/24 20:00 Temperature 97.5 F L Pulse Rate 78 Pulse Rate [Apical] 75 Respiratory Rate 16 Blood Pressure 112/75 112/75 Pulse Oximetry 100 Oxygen Delivery Room Air 05/24/24 00:00 05/23/24 20:00 05/24/24 00:00 Temperature Pulse Rate 79 70 Pulse Rate [Apical] 75 Respiratory Rate Blood Pressure 112/75 Pulse Oximetry Oxygen Delivery 05/24/24 04:00 05/24/24 05:31 Temperature 97.3 F L Pulse Rate 126 H 87 Pulse Rate [Apical] Respiratory Rate 18 Blood Pressure 112/73 Pulse Oximetry 100 Oxygen Delivery Intake/Output Intake/Output: Intake & Output 05/21/24 05/22/24 05/23/24 05/24/24 23:59 23:59 23:59 23:59 Intake Total 2330.4 3015.8 4187.5 50 Output Total 200 2190 Balance 2330.4 2815.8 4187.5 -2140 Meds/Results Medications: Active Medications Generic Name Dose Route Start Last Admin Trade Name Freq PRN Reason Stop Dose Admin Acetaminophen 650 mg 05/22/24 12:46 Acetaminophen 325 Mg Tablet PO Q6H PRN Pain Rated 5 or Less Hydrocodone Bitart/Acetaminophen 1 tab 05/22/24 12:48 05/24/24 08:09 Hydrocodone/Acetaminophen (*Crx) 5-325 Mg Tablet PO 1 tab Q4H PRN Administration Pain Rated 6 or Greater Chlordiazepoxide HCl 25 mg 05/22/24 12:44 05/22/24 13:29 Chlordiazepoxide (*Crx) 25 Mg Capsule PO 25 mg Q6H PRN Administration Withdrawal CIWA 8-15 Duloxetine HCl 60 mg 05/22/24 09:00 05/23/24 08:28 Duloxetine Hcl 60 Mg Capsule.Dr PO 60 mg QAM JU Administration Folic Acid 1 mg 05/22/24 09:00 05/23/24 08:28 Folic Acid 1 Mg Tablet FEED TUBE 1 mg DAILY JU Administration Sodium Chloride 1,000 mls @ 70 mls/hr 05/21/24 17:50 05/23/24 17:31 Normal Saline Iv IV CONT 70 mls/hr .[id number] JU Administration Piperacillin/Tazobactam/Dextrose 3.375 gm in 50 mls @ 100 mls/hr 05/21/24 18:00 05/24/24 05:28 Zosyn 3.375 Gm/Ns 50 Ml IVPB Infused Q6H JU Infusion Lorazepam 2 mg 05/22/24 12:44 Lorazepam Inj (*Crx) 2 Mg/Ml Vial IV PUSH Q2H PRN CIWA > 15 Megestrol Acetate 20 mg 05/22/24 09:00 05/23/24 08:28 Megestrol Acetate (*Chemo) 20 Mg Tablet FEED TUBE 20 mg QAM JU Administration Miscellaneous Information 1 each 05/21/24 00:01 Nonformulary Drug (Buprenorphine 5 Mcg/Hour Patch Weekly) Can Patient Use From Home? Also XX 06/20/24 00:00 CLARIFY JU Nicotine 1 patch 05/21/24 21:30 05/23/24 08:30 Nicotine (*Pbkc) 21 Mg Patch TRANSDERM 1 patch DAILY JU Administration Non-Formulary Medication 1 patch 05/21/24 20:30 Buprenorphine TRANSDERM 06/20/24 20:29 Q7D JU Ondansetron HCl 4 mg 05/21/24 16:45 05/24/24 04:58 Ondansetron Inj 4 Mg/2 Ml Vial IV PUSH 4 mg Q6H PRN Administration Nausea And Vomiting Ondansetron HCl 4 mg 05/23/24 16:41 Ondansetron Hcl Odt 4 Mg Tablet PO Q8H PRN Nausea And Vomiting Thiamine HCl 100 mg 05/22/24 09:00 05/23/24 08:28 Thiamine Hcl 100 Mg Tablet FEED TUBE 100 mg DAILY JU Administration Trazodone HCl 50 mg 05/21/24 18:29 05/23/24 19:50 Trazodone Hcl 50 Mg Tablet FEED TUBE 50 mg HS PRN Administration insomnia Radiology Results: ITS Impressions Abdomen/Pelvis CT 05/21/24 15:31 IMPRESSION: 1. Wall thickening of the rectosigmoid, consistent with colitis. Labs Labs: Laboratory Results - last 24 hr 05/22/24 05/23/24 05/23/24 18:05 11:58 17:20 POC Capillary Glucose 123 H 103 Total Creatine Kinase [id number] 156 Ceruloplasmin 05/23/24 05/24/24 05/24/24 23:22 05:26 05:50 POC Capillary Glucose 91 90 Total Creatine Kinase 64 Rulgd-3-[id number] Ceruloplasmin
[2024-05-24] MEDS: SODIUM CHLORIDE 0.9% IV 1,000 ML 70 ML IV CONT (09:19)
[2024-05-24 09:20] LABS: Eosinophils Absolute Auto 0.1 K/mm3 (0-0.3); Eosinophils Percent Auto 3.8 % (0-4.4); Hematocrit 33.8 % (37.0-47.0); Hemoglobin 11.2 g/dL (12.0-15.0); Immature Granulocyte Absolute 0.01 K/mm3 (0.00-0.031); Immature Granulocyte Percent A 0.3 % (0-0.5); Immature Platelet Fraction Pct 12.8 % (0.9-11.2); Lymphocytes Absolute Auto 0.87 K/mm3 (0.9-3.2); Lymphocytes Percent Auto 30.3 % (18.3-44.2); Mean Corpuscular HGB Conc 33.1 g/dl (32-36); Mean Corpuscular Hemoglobin 37.1 pg (26-34); Mean Corpuscular Volume 111.9 fl (80-100); Mean Platelet Volume 12.5 fl (7.4-10.4); Monocytes Absolute Auto 0.1 K/mm3 (0.1-0.6); Monocytes Percent Auto 3.8 % (2.6-8.5); Neutrophils Absolute Auto 1.7 K/mm3 (1.3-6.7); Neutrophils Percent Auto 60.8 % (45.5-73.1); Platelet Count Result 89 k/mm3 (150-375); Red Blood Count 3.02 M/mm3 (4.2-5.4); Red Cell Distribution Width 14.1 % (11.5-14.5); White Blood Count 2.9 K/mm3 (4.5-10.0)
[2024-05-24 09:45] LABS: Alanine Aminotransferase 126 U/L (6-35); Albumin Level 3.2 g/dL (3.5-5.1); Alkaline Phosphatase 147 U/L (38-126); Anion Gap 12 mmol/L (4-12); Aspartate Amino Transferase 178 U/L (14-36); Bilirubin,Total 0.7 mg/dL (0.2-1.3); Calcium 8.7 mg/dL (8.4-10.2); Carbon Dioxide 24 mmol/L (22-30); Chloride 101 mmol/L (98-107); Estimated CRCL calculation 72 ml/min; Estimated Glomerular Filt Rate > 60; Glucose 85 mg/dL (65-110); Magnesium 1.4 mg/dL (1.6-2.3); Potassium 3.2 mmol/L (3.4-5.0); Sodium 137 mmol/L (137-145)
[2024-05-24 09:51] LABS: Blood Urea Nitrogen < 2 mg/dL (7-17)
[2024-05-24 10:13] LABS: Ionized Calcium 4.5 mg/dL (4.7-5.5)
[2024-05-24 10:42] LABS: Macrocytosis 1+ (NORMAL); Platelet Estimate Decreased (Adequate); Schistocytes None Seen
[2024-05-24 12:14] LABS: Glucose Point of Care 88 mg/dl (65-105)
--- NOTE | 2024-05-24 13:12 | WPDANESEPPF ---
Anes - Initial Pre Proc Eval Procedure: Operation Date: 05/24/24 13:30 Proposed Procedures p Esophagogastroduodenoscopy & Colonoscopy - Alfredo Allred MD Date/Time: 05/24/24 13:12 Surgeon: Ruba Nelson MD Pre Op Diagnosis: hypokalemia, colitis Patient Data Age: 34 Gender: F Height: 1.55 m Weight: 40.5 kg Last Vital Signs Temp 36.3 C L 05/24/24 05:31 Pulse 78 05/24/24 12:00 Resp 18 05/24/24 05:31 BP 112/73 05/24/24 05:31 Pulse Ox 100 05/24/24 05:31 O2 Del Method Room Air 05/24/24 08:30 Allergies Allergy/AdvReac Type Severity Reaction Status Date / Time latex Allergy Rash Verified 05/21/24 13:27 Home Medications Medication Instructions Recorded Confirmed Type duloxetine 60 mg capsule,delayed 60 mg PO QAM #30 caps 02/08/24 05/21/24 Rx release ondansetron 8 mg disintegrating 8 mg PO Q8H PRN nausea and 02/08/24 05/21/24 Rx tablet vomiting #90 tabs ferrous sulfate 325 mg (65 mg 325 mg PO BID 03/28/24 05/21/24 History iron) tablet,delayed release folic acid 1 mg tablet 1 mg feeding tube DAILY 03/28/24 05/21/24 History megestrol 20 mg tablet 20 mg feeding tube QAM 03/28/24 05/21/24 History multivitamin with folic acid 400 1 tablet PO QAM 03/28/24 05/21/24 History mcg tablet (Thera) thiamine HCl (vitamin B1) 100 mg 100 mg feeding tube DAILY 03/28/24 05/21/24 History tablet trazodone 50 mg tablet 50 mg feeding tube HS PRN insomnia 03/28/24 05/21/24 History vitamin B complex (Vitamins B 1 cap feeding tube QAM 03/28/24 05/21/24 History Complex capsule) potassium chloride 10 mEq 10 meq PO DAILY #30 caps 03/29/24 05/21/24 Rx capsule,extended release buprenorphine 5 mcg/hour weekly 1 patch transdermal Q7D chronic 05/14/24 05/21/24 Rx transdermal patch pain 28 days #4 ea Laboratory Tests 1005/23/24 05/23/24 18:05 17:20 21:12 WBC RBC Hgb Hct MCV MCH MCHC RDW Plt Count MPV Immature Gran % (Auto) Neut % (Auto) Lymph % (Auto) [place] % (Auto) Eos % (Auto) Baso % (Auto) Lymph # (Auto) [place] # (Auto) Eos # (Auto) Baso # (Auto) Abs Immat Gran (auto) Absolute Neuts (auto) Absolute Nucleated RBC Nucleated RBC % Platelet Estimate % Immature Plt Fraction Macrocytosis Schistocytes Sodium Potassium Chloride Carbon Dioxide Anion Gap BUN Creatinine Estim Creat Clear Calc Estimated GFR Glucose POC Capillary Glucose 103 mg/dl (65-105) Calcium Ionized Calcium Isaiah 4.5 L mg/dL (4.7-5.5) Magnesium Kandi Transferrin Receptr Pending Total Bilirubin AST ALT Alkaline Phosphatase Total Creatine Kinase Total Protein Albumin Rrsjn-2-Rfqqkyxbrmi 156 mg/dL (83-199) Ceruloplasmin 23 mg/dL (14-48) Methylmalonic Acid Pending 05/23/24 05/24/24 05/24/24 23:22 05:26 05:50 WBC 2.9 L K/mm3 (4.5-10.0) RBC 3.02 L M/mm3 (4.2-5.4) Hgb 11.2 L g/dL (12.0-15.0) Hct 33.8 L % (37.0-47.0) MCV 111.9 H fl (80-100) MCH 37.1 H pg (26-34) MCHC 33.1 g/dl (32-36) RDW 14.1 % (11.5-14.5) Plt Count 89 L k/mm3 (150-375) MPV 12.5 H fl (7.4-10.4) Immature Gran % (Auto) 0.3 % (0-0.5) Neut % (Auto) 60.8 % (45.5-73.1) Lymph % (Auto) 30.3 % (18.3-44.2) [place] % (Auto) 3.8 % (2.6-8.5) Eos % (Auto) 3.8 % (0-4.4) Baso % (Auto) 1.0 % (0.2-1.2) Lymph # (Auto) 0.87 L K/mm3 (0.9-3.2) [place] # (Auto) 0.1 K/mm3 (0.1-0.6) Eos # (Auto) 0.1 K/mm3 (0-0.3) Baso # (Auto) 0.0 K/mm3 (0.0-0.1) Abs Immat Gran (auto) 0.01 K/mm3 (0.00-0.031) Absolute Neuts (auto) 1.7 K/mm3 (1.3-6.7) Absolute Nucleated RBC 0.000 K/mm3 (0.0-0.012) Nucleated RBC % 0.0 % (0.0-0.2) Platelet Estimate Decreased (Adequate) % Immature Plt Fraction 12.8 H % (0.9-11.2) Macrocytosis 1+ (NORMAL) Schistocytes None seen Sodium 137 mmol/L (137-145) Potassium 3.2 L mmol/L (3.4-5.0) Chloride 101 mmol/L (98-107) Carbon Dioxide 24 mmol/L (22-30) Anion Gap 12 mmol/L (4-12) BUN < 2 L mg/dL (7-17) Creatinine 0.60 L mg/dL (0.7-1.0) Estim Creat Clear Calc 72 ml/min Estimated GFR > 60 (59 - ) Glucose 85 mg/dL (65-110) POC Capillary Glucose 91 mg/dl 90 mg/dl (65-105) (65-105) Calcium 8.7 mg/dL (8.4-10.2) Ionized Calcium Isaiah Magnesium 1.4 L mg/dL (1.6-2.3) Kandi Transferrin Receptr Total Bilirubin 0.7 mg/dL (0.2-1.3) AST 178 H U/L (14-36) ALT 126 H U/L (6-35) Alkaline Phosphatase 147 H U/L (38-126) Total Creatine Kinase 64 U/L (30-135) Total Protein 6.0 L g/dL (6.3-8.2) Albumin 3.2 L g/dL (3.5-5.1) Ejcsj-9-Ugmkybjhksd Ceruloplasmin Methylmalonic Acid 05/24/24 12:04 WBC RBC Hgb Hct MCV MCH MCHC RDW Plt Count MPV Immature Gran % (Auto) Neut % (Auto) Lymph % (Auto) [place] % (Auto) Eos % (Auto) Baso % (Auto) Lymph # (Auto) [place] # (Auto) Eos # (Auto) Baso # (Auto) Abs Immat Gran (auto) Absolute Neuts (auto) Absolute Nucleated RBC Nucleated RBC % Platelet Estimate % Immature Plt Fraction Macrocytosis Schistocytes Sodium Potassium Chloride Carbon Dioxide Anion Gap BUN Creatinine Estim Creat Clear Calc Estimated GFR Glucose POC Capillary Glucose 88 mg/dl (65-105) Calcium Ionized Calcium Isaiah Magnesium Kandi Transferrin Receptr Total Bilirubin AST ALT Alkaline Phosphatase Total Creatine Kinase Total Protein Albumin Hbgeo-4-Banrxxqiojz Ceruloplasmin Methylmalonic Acid Patient hx anesthesia problems: none Family hx anesthesia problems: none Results Review: All pre-operative results and documents have been reviewed as part of the pre-operative evaluation. [facility] Past Medical History Medical History Avoidant/restrictive food intake disorder Cannabis abuse Depression with anxiety Elevated LFTs Mitral valve prolapse Surgical History Surgical History History of percutaneous endoscopic gastrostomy Family History Family History Mother Heart attack Grandparent Cancer Social History Social History Social History: Surrogate medical decision maker: Jorge Luis Centeno, significant other. Code status: Full code. Smoking packs per day: 0.5 Smoking cigarettes per day: 10.0 Years smoked: 17 Smoking pack-years: 8.50 Smoking status: Current every day smoker Tobacco type: cigarettes Alcohol intake: current Drinks per week: 4 Alcohol use details: States she drinks 1 pint a week Substance use: current Substance use type: marijuana Other substance usage details: 1 pint of Rum/week; last intake 03/25/24 Last use: 10/31/23 Do You Feel Safe in your Home?: Yes Lack of Transportation: No Lack of Food: Never True Current Housing: I Have Housing Concerned About Future Housing: No Difficulty Paying Gas/Electric Bills: No Difficulty Paying for Meds: No Currently Unemployed: No Education: High School Diploma/GED Difficulty w/ Childcare or Family Care: No Living arrangements: with family Additional living arrangements comments: with 7 year old son and fianc? Occupation/Education: unemployed Spiritual care concerns: No Agree to blood products: Yes Anes - Eval Final PreProcedure Day of Procedure 05/24/24 13:12 Patient weight: thin Heart: regular rate and rhythm Lungs: clear to auscultation Airway: Mallampati scale class II Neurological: alert and oriented Last oral intake: >/= 8 hours ASA classification: III Emergent: no Anesthetic plan: proceed Anesthesia type and monitoring: general GIVS and standard monitoring Results Review: All pre-operative results and documents have been reviewed as part of the pre-operative evaluation. Informed Consent: The patient's anesthetic plan and its attendant risks and benefits were discussed with the patient/family/POA. Questions were solicited and answers provided to the satisfaction of the patient/family/POA.
[2024-05-24] MEDS: LACTATED RINGERS 1,000 ML 150 ML IV CONT (13:20)
--- NOTE | 2024-05-24 14:14 | PM.IMHP ---
H&P: HPI History of Present Illness Date/Time: 05/24/24 14:14 Chief Complaint: Chronic diarrhea, anemia. Narrative: The patient has multiple systemic problems, including pancytopenia, electrolyte disturbances and malnutrition. She is here for EGD and colonoscopy with intention of biopsy taking. REPLACED BY [facility] Past Medical History Medical History Avoidant/restrictive food intake disorder Cannabis abuse Depression with anxiety Elevated LFTs Mitral valve prolapse Surgical History Surgical History History of percutaneous endoscopic gastrostomy Family History Family History Mother Heart attack Grandparent Cancer Social History Social History Social History: Surrogate medical decision maker: Jorge Luis Centeno significant other. Code status: Full code. Smoking packs per day: 0.5 Smoking cigarettes per day: 10.0 Years smoked: 17 Smoking pack-years: 8.50 Smoking status: Current every day smoker Tobacco type: cigarettes Alcohol intake: current Drinks per week: 4 Alcohol use details: States she drinks 1 pint a week Substance use: current Substance use type: marijuana Other substance usage details: 1 pint of Rum/week; last intake 03/25/24 Last use: 10/31/23 Do You Feel Safe in your Home?: Yes Lack of Transportation: No Lack of Food: Never True Current Housing: I Have Housing Concerned About Future Housing: No Difficulty Paying Gas/Electric Bills: No Difficulty Paying for Meds: No Currently Unemployed: No Education: High School Diploma/GED Difficulty w/ Childcare or Family Care: No Living arrangements: with family Additional living arrangements comments: with 7 year old son and fianc? Occupation/Education: unemployed Spiritual care concerns: No Agree to blood products: Yes Meds Home Medications and Allergies Home Medications Medication Instructions Recorded Confirmed Type duloxetine 60 mg capsule,delayed 60 mg PO QAM #30 caps 02/08/24 05/21/24 Rx release ondansetron 8 mg disintegrating 8 mg PO Q8H PRN nausea and 02/08/24 05/21/24 Rx tablet vomiting #90 tabs ferrous sulfate 325 mg (65 mg 325 mg PO BID 03/28/24 05/21/24 History iron) tablet,delayed release folic acid 1 mg tablet 1 mg feeding tube DAILY 03/28/24 05/21/24 History megestrol 20 mg tablet 20 mg feeding tube QAM 03/28/24 05/21/24 History multivitamin with folic acid 400 1 tablet PO QAM 03/28/24 05/21/24 History mcg tablet (Thera) thiamine HCl (vitamin B1) 100 mg 100 mg feeding tube DAILY 03/28/24 05/21/24 History tablet trazodone 50 mg tablet 50 mg feeding tube HS PRN insomnia 03/28/24 05/21/24 History vitamin B complex (Vitamins B 1 cap feeding tube QAM 03/28/24 05/21/24 History Complex capsule) potassium chloride 10 mEq 10 meq PO DAILY #30 caps 03/29/24 05/21/24 Rx capsule,extended release buprenorphine 5 mcg/hour weekly 1 patch transdermal Q7D chronic 05/14/24 05/21/24 Rx transdermal patch pain 28 days #4 ea Allergies Allergy/AdvReac Type Severity Reaction Status Date / Time latex Allergy Rash Verified 05/24/24 13:15 Vital Signs Vital Signs - 24 hr 05/23/24 16:00 05/23/24 19:45 05/23/24 20:00 Temperature 97.5 F L Pulse Rate 81 78 Pulse Rate [Apical] 75 Respiratory Rate 16 Blood Pressure 112/75 112/75 Pulse Oximetry 100 Oxygen Delivery 05/23/24 20:00 05/24/24 00:00 05/23/24 20:00 Temperature Pulse Rate 79 Pulse Rate [Apical] 75 Respiratory Rate Blood Pressure 112/75 Pulse Oximetry Oxygen Delivery Room Air 05/24/24 00:00 05/24/24 04:00 05/24/24 05:31 Temperature 97.3 F L Pulse Rate 70 126 H 87 Pulse Rate [Apical] Respiratory Rate 18 Blood Pressure 112/73 Pulse Oximetry 100 Oxygen Delivery 05/24/24 08:30 05/24/24 08:00 05/24/24 12:00 Temperature Pulse Rate 98 78 Pulse Rate [Apical] Respiratory Rate Blood Pressure Pulse Oximetry Oxygen Delivery Room Air 05/24/24 13:00 Temperature 97.5 F L Pulse Rate 70 Pulse Rate [Apical] Respiratory Rate 18 Blood Pressure 95/63 L Pulse Oximetry 97 Oxygen Delivery Room Air H&P: Results Labs Labs: Short CBC 05/24/24 Range/Units 05:50 WBC 2.9 L (4.5-10.0) K/mm3 Hgb 11.2 L (12.0-15.0) g/dL Hct 33.8 L (37.0-47.0) % Plt Count 89 L (150-375) k/mm3 BMP 05/24/24 05:50 Sodium 137 Potassium 3.2 L Chloride 101 Carbon Dioxide 24 BUN < 2 L Creatinine 0.60 L Glucose 85 Calcium 8.7 Cardiac Enzymes 05/24/24 Range/Units 05:50 Total Creatine Kinase 64 (30-135) U/L Liver Function 05/24/24 Range/Units 05:50 Total Bilirubin 0.7 (0.2-1.3) mg/dL AST 178 H (14-36) U/L ALT 126 H (6-35) U/L Alkaline Phosphatase 147 H (38-126) U/L Albumin 3.2 L (3.5-5.1) g/dL Assessment and Plan Assessment and plan (1) Abdominal pain: Code(s): R10.9 - Unspecified abdominal pain Status: Acute Assessment and Plan: The patient is deemed a good candidate for the procedure. Consent signed. Will proceed. (2) Colitis: Code(s): K52.9 - Noninfective gastroenteritis and colitis, unspecified Status: Acute (3) Chronic pain: Code(s): G89.29 - Other chronic pain Status: Acute (4) Pancytopenia: Code(s): D61.818 - Other pancytopenia Status: Acute
--- NOTE | 2024-05-24 14:26 | SUR.OPER ---
EGD: [id number] COLON:[id number]
[2024-05-24] MEDS: MEGESTROL ACETATE (*CHEMO) 20 MG TABLET FEED TUBE (16:02)
[2024-05-24] MEDS: THIAMINE HCL 100 MG TABLET FEED TUBE (16:02)
[2024-05-24] MEDS: FOLIC ACID 1 MG TABLET FEED TUBE (16:02)
[2024-05-24] MEDS: NICOTINE (*PBKC) 21 MG PATCH 1 PATCH TRANSDERM (16:03)
[2024-05-24] MEDS: DULoxetine HCL 60 MG CAPSULE.DR PO (16:03)
[2024-05-24] MEDS: POTASSIUM CHLORIDE 20 MEQ PACKET (FOR LIQUID) 40 MEQ FEED TUBE (16:06)
[2024-05-24] MEDS: MAGNESIUM SULF 2 GM/WATER 50ML 2 GM/50 ML BAG IVPB (16:10)
--- NOTE | 2024-05-24 19:19 | WPDGIPROGNO ---
Progress Note: A&P Assessment and Plan (1) Elevated LFTs: Code(s): R79.89 - Other specified abnormal findings of blood chemistry Status: Acute Assessment and Plan: The patient underwent EGD and colonoscopy. Thickening of the colon on CT was just an artifact and there is no evidence of colitis, inflammatory bowel disease. Biopsies were taken to rule out microscopic colitis, which can explain diarrhea. Hematology evaluation appreciated, and do not consider bone marrow biopsy is indicated at this moment. Regarding significant elevation of liver chemistry, so far serology for chronic hepatitis-B and C is negative as well as antinuclear antibodies. Anti smooth muscle antibody and immunoglobulins still pending. There is still a possibility of autoimmune hepatitis with negative markers. Will consider liver biopsy. alcohol use is not an explanation for this degree of transaminase elevation. Subjective Date/time seen: 05/24/24 19:19 Objective Data Vital Signs Vital Signs: Vital Signs - 24 hr 05/23/24 19:45 05/23/24 20:00 05/23/24 20:00 Temperature 97.5 F L Pulse Rate 78 Pulse Rate [Apical] 75 Respiratory Rate 16 Blood Pressure 112/75 112/75 Pulse Oximetry 100 Oxygen Delivery Room Air 05/24/24 00:00 05/23/24 20:00 05/24/24 00:00 Temperature Pulse Rate 79 70 Pulse Rate [Apical] 75 Respiratory Rate Blood Pressure 112/75 Pulse Oximetry Oxygen Delivery 05/24/24 04:00 05/24/24 05:31 05/24/24 08:30 Temperature 97.3 F L Pulse Rate 126 H 87 Pulse Rate [Apical] Respiratory Rate 18 Blood Pressure 112/73 Pulse Oximetry 100 Oxygen Delivery Room Air 05/24/24 08:00 05/24/24 12:00 05/24/24 13:00 Temperature 97.5 F L Pulse Rate 98 78 70 Pulse Rate [Apical] Respiratory Rate 18 Blood Pressure 95/63 L Pulse Oximetry 97 Oxygen Delivery Room Air 05/24/24 14:46 05/24/24 14:56 05/24/24 15:06 Temperature Pulse Rate 57 L 65 62 Pulse Rate [Apical] Respiratory Rate 18 20 20 Blood Pressure 127/86 118/78 118/77 Pulse Oximetry 100 100 100 Oxygen Delivery Room Air Room Air Room Air 05/24/24 16:00 05/24/24 14:00 Temperature 97.3 F L Pulse Rate 80 74 Pulse Rate [Apical] Respiratory Rate 18 Blood Pressure 114/53 L Pulse Oximetry 100 Oxygen Delivery Intake/Output Intake/Output: Intake & Output 05/21/24 05/22/24 05/23/24 05/24/24 23:59 23:59 23:59 23:59 Intake Total 2330.4 3015.8 4187.5 1270 Output Total 200 2190 Balance 2330.4 2815.8 4187.5 -920 Meds/Results Medications: Active Medications Generic Name Dose Route Start Last Admin Trade Name Freq PRN Reason Stop Dose Admin Acetaminophen 650 mg 05/22/24 12:46 Acetaminophen 325 Mg Tablet PO Q6H PRN Pain Rated 5 or Less Hydrocodone Bitart/Acetaminophen 1 tab 05/22/24 12:48 05/24/24 16:02 Hydrocodone/Acetaminophen (*Crx) 5-325 Mg Tablet PO 1 tab Q4H PRN Administration Pain Rated 6 or Greater Amoxicillin/Clavulanate Potassium 1 tablet 05/24/24 21:00 Amoxicillin/Clavulanate K 875-125 Mg Tab PO 05/28/24 20:59 Q12HR JU Chlordiazepoxide HCl 25 mg 05/22/24 12:44 05/22/24 13:29 Chlordiazepoxide (*Crx) 25 Mg Capsule PO 25 mg Q6H PRN Administration Withdrawal CIWA 8-15 Duloxetine HCl 60 mg 05/22/24 09:00 05/24/24 16:03 Duloxetine Hcl 60 Mg Capsule.Dr PO 60 mg QAM JU Administration Folic Acid 1 mg 05/22/24 09:00 05/24/24 16:02 Folic Acid 1 Mg Tablet FEED TUBE 1 mg DAILY JU Administration Lorazepam 2 mg 05/22/24 12:44 Lorazepam Inj (*Crx) 2 Mg/Ml Vial IV PUSH Q2H PRN CIWA > 15 Megestrol Acetate 20 mg 05/22/24 09:00 05/24/24 16:02 Megestrol Acetate (*Chemo) 20 Mg Tablet FEED TUBE 20 mg QAM UJ Administration Miscellaneous Information 1 each 05/21/24 00:01 Nonformulary Drug (Buprenorphine 5 Mcg/Hour Patch Weekly) Can Patient Use From Home? Also XX 06/20/24 00:00 CLARIFY JU Nicotine 1 patch 05/21/24 21:30 05/24/24 16:03 Nicotine (*Pbkc) 21 Mg Patch TRANSDERM 1 patch DAILY JU Administration Non-Formulary Medication 1 patch 05/21/24 20:30 Buprenorphine TRANSDERM 06/20/24 20:29 Q7D JU Ondansetron HCl 4 mg 05/21/24 16:45 05/24/24 12:04 Ondansetron Inj 4 Mg/2 Ml Vial IV PUSH 4 mg Q6H PRN Administration Nausea And Vomiting Ondansetron HCl 4 mg 05/23/24 16:41 Ondansetron Hcl Odt 4 Mg Tablet PO Q8H PRN Nausea And Vomiting Thiamine HCl 100 mg 05/22/24 09:00 05/24/24 16:02 Thiamine Hcl 100 Mg Tablet FEED TUBE 100 mg DAILY JU Administration Trazodone HCl 50 mg 05/21/24 18:29 05/23/24 19:50 Trazodone Hcl 50 Mg Tablet FEED TUBE 50 mg HS PRN Administration insomnia Radiology Results: ITS Impressions Abdomen/Pelvis CT 05/21/24 15:31 IMPRESSION: 1. Wall thickening of the rectosigmoid, consistent with colitis. Labs Labs: Laboratory Results - last 24 hr 05/22/24 05/23/24 05/24/24 18:05 23:22 05:26 WBC RBC Hgb Hct MCV MCH MCHC RDW Plt Count MPV Immature Gran % (Auto) Neut % (Auto) Lymph % (Auto) [place] % (Auto) Eos % (Auto) Baso % (Auto) Lymph # (Auto) [place] # (Auto) Eos # (Auto) Baso # (Auto) Abs Immat Gran (auto) Absolute Neuts (auto) Absolute Nucleated RBC Nucleated RBC % Platelet Estimate % Immature Plt Fraction Macrocytosis Schistocytes Sodium Potassium Chloride Carbon Dioxide Anion Gap BUN Creatinine Estim Creat Clear Calc Estimated GFR Glucose POC Capillary Glucose 91 90 Calcium Ionized Calcium Isaiah 4.5 L Magnesium Total Bilirubin AST ALT Alkaline Phosphatase Total Creatine Kinase Total Protein Albumin Vqpuu-0-Mvgvfuyyegm 156 Ceruloplasmin 23 KATEY Screen Negative 05/24/24 05/24/24 05:50 12:04 WBC 2.9 L RBC 3.02 L Hgb 11.2 L Hct 33.8 L MCV 111.9 H MCH 37.1 H MCHC 33.1 RDW 14.1 Plt Count 89 L MPV 12.5 H Immature Gran % (Auto) 0.3 Neut % (Auto) 60.8 Lymph % (Auto) 30.3 [place] % (Auto) 3.8 Eos % (Auto) 3.8 Baso % (Auto) 1.0 Lymph # (Auto) 0.87 L [place] # (Auto) 0.1 Eos # (Auto) 0.1 Baso # (Auto) 0.0 Abs Immat Gran (auto) 0.01 Absolute Neuts (auto) 1.7 Absolute Nucleated RBC 0.000 Nucleated RBC % 0.0 Platelet Estimate Decreased % Immature Plt Fraction 12.8 H Macrocytosis 1+ Schistocytes None seen Sodium 137 Potassium 3.2 L Chloride 101 Carbon Dioxide 24 Anion Gap 12 BUN < 2 L Creatinine 0.60 L Estim Creat Clear Calc 72 Estimated GFR > 60 Glucose 85 POC Capillary Glucose 88 Calcium 8.7 Ionized Calcium Isaiah Magnesium 1.4 L Total Bilirubin 0.7 AST 178 H ALT 126 H Alkaline Phosphatase 147 H Total Creatine Kinase 64 Total Protein 6.0 L Albumin 3.2 L Jvnyq-8-Vyzjgtnrqyt Ceruloplasmin KATEY Screen
[2024-05-24] MEDS: AMOXICILLIN/CLAVULANATE K 875-125 MG TAB 1 TABLET PO (19:47)
[2024-05-24] MEDS: traZODone HCL 50 MG TABLET FEED TUBE (19:47)
--- NOTE | 2024-05-24 21:05 | PC.NURSE ---
attempted to start pt's feeding at 1999, pt refused stating she is having abdominal pain and refused tube feeding at this time
[2024-05-25] VITALS: PULSE 77
[2024-05-25] MEDS: HYDROcodone/acetaminophen (*CRX) 5-325 MG TABLET 1 TAB PO ×3 (00:33→09:45)
[2024-05-25 00:52] LABS: Glucose Point of Care 103 mg/dl (65-105)
[2024-05-25 04:00] VITALS: PULSE 76
[2024-05-25] MEDS: ONDANSETRON INJ 4 MG/2 ML VIAL IV PUSH (04:22)
[2024-05-25 05:55] LABS: Alanine Aminotransferase 80 U/L (6-35); Albumin Level 2.7 g/dL (3.5-5.1); Alkaline Phosphatase 120 U/L (38-126); Anion Gap 6 mmol/L (4-12); Aspartate Amino Transferase 81 U/L (14-36); Bilirubin,Total 0.4 mg/dL (0.2-1.3); Carbon Dioxide 24 mmol/L (22-30); Chloride 105 mmol/L (98-107); Estimated CRCL calculation 104 ml/min; Estimated Glomerular Filt Rate > 60; Glucose 90 mg/dL (65-110); Potassium 3.6 mmol/L (3.4-5.0); Sodium 135 mmol/L (137-145)
[2024-05-25 06:00] VITALS: BP 99/67; PULSE 77; RESP 20; TEMP 36.3; O2SAT 100
[2024-05-25 06:17] LABS: Basophils Percent Auto 0.8 % (0.2-1.2); Eosinophils Absolute Auto 0.1 K/mm3 (0-0.3); Eosinophils Percent Auto 4.2 % (0-4.4); Hematocrit 30.7 % (37.0-47.0); Hemoglobin 10.3 g/dL (12.0-15.0); Lymphocytes Absolute Auto 0.94 K/mm3 (0.9-3.2); Lymphocytes Percent Auto 36.2 % (18.3-44.2); Mean Corpuscular HGB Conc 33.6 g/dl (32-36); Mean Corpuscular Volume 113.3 fl (80-100); Mean Platelet Volume 11.7 fl (7.4-10.4); Monocytes Absolute Auto 0.2 K/mm3 (0.1-0.6); Monocytes Percent Auto 6.2 % (2.6-8.5); Neutrophils Absolute Auto 1.4 K/mm3 (1.3-6.7); Neutrophils Percent Auto 52.6 % (45.5-73.1); Platelet Count Result 85 k/mm3 (150-375); Red Blood Count 2.71 M/mm3 (4.2-5.4); Red Cell Distribution Width 14.6 % (11.5-14.5); White Blood Count 2.6 K/mm3 (4.5-10.0)
[2024-05-25 06:25] LABS: Glucose Point of Care 102 mg/dl (65-105)
[2024-05-25 07:08] LABS: Platelet Estimate Decreased (Adequate)
[2024-05-25 07:09] LABS: Macrocytosis 2+ (NORMAL); Schistocytes None Seen
--- NOTE | 2024-05-25 07:58 | P.PNGI_ITS ---
Progress Note: A&P Assessment and Plan (1) Elevated LFTs: Code(s): R79.89 - Other specified abnormal findings of blood chemistry Status: Acute Assessment and Plan: The patient had persistent elevation of aminotransferase is of unclear cause. On the other hand, patient is currently stable from a medical standpoint, and had no evidence of colitis. Please schedule an appointment as an outpatient in GI clinic to follow-up on these abnormalities, and will consider liver biopsy if they persist. we will also check biopsies taken during endoscopic procedures and discuss results with the patient during her next outpatient visit. Subjective Date/time seen: 05/25/24 07:58 Objective Data Vital Signs Vital Signs: Vital Signs - 24 hr 05/24/24 08:30 05/24/24 08:00 05/24/24 12:00 Temperature Pulse Rate 98 78 Respiratory Rate Blood Pressure Pulse Oximetry Oxygen Delivery Room Air 05/24/24 13:00 05/24/24 14:46 05/24/24 14:56 Temperature 97.5 F L Pulse Rate 70 57 L 65 Respiratory Rate 18 18 20 Blood Pressure 95/63 L 127/86 118/78 Pulse Oximetry 97 100 100 Oxygen Delivery Room Air Room Air Room Air 05/24/24 15:06 05/24/24 16:00 05/24/24 14:00 Temperature 97.3 F L Pulse Rate 62 80 74 Respiratory Rate 20 18 Blood Pressure 118/77 114/53 L Pulse Oximetry 100 100 Oxygen Delivery Room Air 05/24/24 19:39 05/24/24 20:00 05/24/24 20:00 Temperature 97.9 F Pulse Rate 93 81 Respiratory Rate 20 Blood Pressure 101/62 Pulse Oximetry 88 L Oxygen Delivery Room Air 05/25/24 00:00 05/25/24 04:00 05/25/24 06:00 Temperature 97.4 F L Pulse Rate 77 76 77 Respiratory Rate 20 Blood Pressure 99/67 L Pulse Oximetry 100 Oxygen Delivery Intake/Output Intake/Output: Intake & Output 05/22/24 05/23/24 05/24/24 05/25/24 23:59 23:59 23:59 23:59 Intake Total 3015.8 4187.5 1270 350 Output Total 200 2190 Balance 2815.8 4187.5 -920 350 Meds/Results Medications: Active Medications Generic Name Dose Route Start Last Admin Trade Name Freq PRN Reason Stop Dose Admin Acetaminophen 650 mg 05/22/24 12:46 Acetaminophen 325 Mg Tablet PO Q6H PRN Pain Rated 5 or Less Hydrocodone Bitart/Acetaminophen 1 tab 05/22/24 12:48 05/25/24 04:17 Hydrocodone/Acetaminophen (*Crx) 5-325 Mg Tablet PO 1 tab Q4H PRN Administration Pain Rated 6 or Greater Amoxicillin/Clavulanate Potassium 1 tablet 05/24/24 21:00 05/24/24 19:47 Amoxicillin/Clavulanate K 875-125 Mg Tab PO 05/28/24 20:59 1 tablet Q12HR JU Administration Chlordiazepoxide HCl 25 mg 05/22/24 12:44 05/22/24 13:29 Chlordiazepoxide (*Crx) 25 Mg Capsule PO 25 mg Q6H PRN Administration Withdrawal CIWA 8-15 Duloxetine HCl 60 mg 05/22/24 09:00 05/24/24 16:03 Duloxetine Hcl 60 Mg Capsule.Dr PO 60 mg QAM JU Administration Folic Acid 1 mg 05/22/24 09:00 05/24/24 16:02 Folic Acid 1 Mg Tablet FEED TUBE 1 mg DAILY JU Administration Lorazepam 2 mg 05/22/24 12:44 Lorazepam Inj (*Crx) 2 Mg/Ml Vial IV PUSH Q2H PRN CIWA > 15 Megestrol Acetate 20 mg 05/22/24 09:00 05/24/24 16:02 Megestrol Acetate (*Chemo) 20 Mg Tablet FEED TUBE 20 mg QAM JU Administration Miscellaneous Information 1 each 05/21/24 00:01 Nonformulary Drug (Buprenorphine 5 Mcg/Hour Patch Weekly) Can Patient Use From Home? Also XX 06/20/24 00:00 CLARIFY JU Nicotine 1 patch 05/21/24 21:30 05/24/24 16:03 Nicotine (*Pbkc) 21 Mg Patch TRANSDERM 1 patch DAILY JU Administration Non-Formulary Medication 1 patch 05/21/24 20:30 Buprenorphine TRANSDERM 06/20/24 20:29 Q7D JU Ondansetron HCl 4 mg 05/21/24 16:45 05/25/24 04:22 Ondansetron Inj 4 Mg/2 Ml Vial IV PUSH 4 mg Q6H PRN Administration Nausea And Vomiting Ondansetron HCl 4 mg 05/23/24 16:41 Ondansetron Hcl Odt 4 Mg Tablet PO Q8H PRN Nausea And Vomiting Thiamine HCl 100 mg 05/22/24 09:00 05/24/24 16:02 Thiamine Hcl 100 Mg Tablet FEED TUBE 100 mg DAILY JU Administration Trazodone HCl 50 mg 05/21/24 18:29 05/24/24 19:47 Trazodone Hcl 50 Mg Tablet FEED TUBE 50 mg HS PRN Administration insomnia Radiology Results: ITS Impressions Abdomen/Pelvis CT 05/21/24 15:31 IMPRESSION: 1. Wall thickening of the rectosigmoid, consistent with colitis. Labs Labs: Laboratory Results - last 24 hr 05/22/24 05/24/24 05/24/24 18:05 05:50 12:04 WBC 2.9 L RBC 3.02 L Hgb 11.2 L Hct 33.8 L MCV 111.9 H MCH 37.1 H MCHC 33.1 RDW 14.1 Plt Count 89 L MPV 12.5 H Immature Gran % (Auto) 0.3 Neut % (Auto) 60.8 Lymph % (Auto) 30.3 [place] % (Auto) 3.8 Eos % (Auto) 3.8 Baso % (Auto) 1.0 Lymph # (Auto) 0.87 L [place] # (Auto) 0.1 Eos # (Auto) 0.1 Baso # (Auto) 0.0 Abs Immat Gran (auto) 0.01 Absolute Neuts (auto) 1.7 Absolute Nucleated RBC 0.000 Nucleated RBC % 0.0 Platelet Estimate Decreased % Immature Plt Fraction 12.8 H Macrocytosis 1+ Schistocytes None seen Sodium 137 Potassium 3.2 L Chloride 101 Carbon Dioxide 24 Anion Gap 12 BUN < 2 L Creatinine 0.60 L Estim Creat Clear Calc 72 Estimated GFR > 60 Glucose 85 POC Capillary Glucose 88 Calcium 8.7 Ionized Calcium Isaiah 4.5 L Magnesium 1.4 L Total Bilirubin 0.7 AST 178 H ALT 126 H Alkaline Phosphatase 147 H Total Protein 6.0 L Albumin 3.2 L Axrnb-5-Ysblrtbagvz 156 Ceruloplasmin 23 KATEY Screen Negative 05/25/24 05/25/24 05/25/24 00:23 05:17 06:09 WBC 2.6 L RBC 2.71 L Hgb 10.3 L Hct 30.7 L MCV 113.3 H MCH 38.0 H MCHC 33.6 RDW 14.6 H Plt Count 85 L MPV 11.7 H Immature Gran % (Auto) 0.0 Neut % (Auto) 52.6 Lymph % (Auto) 36.2 [place] % (Auto) 6.2 Eos % (Auto) 4.2 Baso % (Auto) 0.8 Lymph # (Auto) 0.94 [place] # (Auto) 0.2 Eos # (Auto) 0.1 Baso # (Auto) 0.0 Abs Immat Gran (auto) 0.00 Absolute Neuts (auto) 1.4 Absolute Nucleated RBC 0.000 Nucleated RBC % 0.0 Platelet Estimate Decreased % Immature Plt Fraction 10.0 Macrocytosis 2+ Schistocytes None seen Sodium 135 L Potassium 3.6 Chloride 105 Carbon Dioxide 24 Anion Gap 6 BUN Creatinine 0.40 L Estim Creat Clear Calc 104 Estimated GFR > 60 Glucose 90 POC Capillary Glucose 103 102 Calcium 8.0 L Ionized Calcium Isaiah Magnesium 2.0 Total Bilirubin 0.4 AST 81 H ALT 80 H Alkaline Phosphatase 120 Total Protein 6.0 L Albumin 2.7 L Laqro-7-Ixjzgynmzls Ceruloplasmin KATEY Screen
[2024-05-25 08:00] VITALS: PULSE 83
[2024-05-25 08:41] LABS: Blood Urea Nitrogen < 2 mg/dL (7-17)
--- NOTE | 2024-05-25 09:27 | PCNFU ---
Nutrition Follow-Up Complete: Severe Protein Calorie Malnutrition as related to inadequate protein-energy intake with increased protein-energy needs in setting of chronic disease as evidenced by minimal oral intake; severe fat loss ( orbital fat pads, triceps) and severe muscle wasting) temporalis, clavicle). Goal: Meet estimated nutritional needs. Patient is not meeting goal. We will continue current goal. Pt current nutrition is Regular with Jevity 1.5 at 70 ml/hr for 12 hours 8pm-8am. Last recorded weight is 40.5 kg, no new weight. Recommend new weight. Bowel Motility: +BM reported 05/23 Labs Reviewed:Cr 0.4,Alb 2.7, BUN< 2, Hgb 10.3, Hct 30.7 Meds Noted: Folic Acid, Thiamine, Megace Skin: WNL Additional Notes: Patient had EGD/Colonoscopy-no findings of colitis. Patient remains on a regular diet with Nutritional Ice Cream BID providing 300 kcal and 9 gm protein. Oral Intake's have been fair. Intake for breakfast today, pancakes, 1/2 slice of lee and grapes. She states she did not take tube feedings last night. I encouraged her taking tube feedings tonight of Jevity 1.5 at 70 ml/hr with Flush 100 ml q 4 hours. Agree with diet orders. Will monitor weight, labs, skin, oral intake, tube feeding tolerance, meds every Tuesday and Tuesday.
[2024-05-25] MEDS: AMOXICILLIN/CLAVULANATE K 875-125 MG TAB 1 TABLET PO (09:45)
[2024-05-25] MEDS: THIAMINE HCL 100 MG TABLET FEED TUBE (09:45)
[2024-05-25] MEDS: FOLIC ACID 1 MG TABLET FEED TUBE (09:47)
[2024-05-25] MEDS: MEGESTROL ACETATE (*CHEMO) 20 MG TABLET FEED TUBE (09:48)
[2024-05-25] MEDS: NICOTINE (*PBKC) 21 MG PATCH 1 PATCH TRANSDERM (09:48)
[2024-05-25] MEDS: DULoxetine HCL 60 MG CAPSULE.DR PO (09:53)
--- NOTE | 2024-05-25 11:56 | P.DS_ITS ---
DS: Admitting Diagnosis Discharge Date 05/25/2024 Admitting Diagnosis Abdominal pain DS: Discharge Diagnosis Discharge Diagnosis (1) Colitis: Code(s): K52.9 - Noninfective gastroenteritis and colitis, unspecified Status: Acute (2) Pancytopenia: Code(s): D61.818 - Other pancytopenia Status: Acute (3) Electrolyte abnormality: Code(s): E87.8 - Other disorders of electrolyte and fluid balance, not elsewhere classi fied Status: Acute DS: Summary Hospital Course Hospital Course: the patient is a 34-year-old female who presented with nausea vomiting abdominal pain. CT abdomen pelvis showing wall thickening in the rectosigmoid area consistent with colitis. WBC 4 K lactic acid 7 on presentation which improved with IV hydration. She also had severe hypokalemia 0.3 on admission and hypomagnesemia. Electrolytes were replaced as needed. Blood culture no growth to date. Urine culture started on Zosyn. General surgery was consulted. GI consulted plan for colonoscopy which was performed on 05/24/2024. Findings of internal hemorrhoids. Biopsies were taken. EGD showed findings of gastritis. Stool studies reviewed opiate dependence on buprenorphine patch. For current morphine IV p.r.n.. 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 Well-nourished. - EYES: EOMI. Anicteric. - HENT: Moist mucous membranes. - LUNGS: Clear to auscultation bilateral ly, no wheezing, rhonchi, or rales. - CARDIOVASCULAR: Regular rate and rhyth m. No murmur. No JVD. - ABDOMEN: Soft, non-tender and non-dist ended. No palpable masses. Peg tube inside - EXTREMITIES: No edema. Peripheral puls es 2+. Non-tender. - NEUROLOGIC: No focal neurological defi cits. CN II-XII grossly intact. - PSYCHIATRIC: Awake, Alert and oriented x 3. Appropriate mood and affect. - SKIN: No rashes or lesions. Warm. - LYMPH: No cervical lymphadenopathy. DS: Data Data Completed and Pending Pending studies at discharge: Pending at discharge 05/24/24 14:32 Surgical [PTH] Routine Surgical [PTH] Routine Labs on day of discharge: Labs from last 24 hours 05/25/24 05/25/24 05/25/24 06:09 05:17 00:23 WBC 2.6 L RBC 2.71 L Hgb 10.3 L Hct 30.7 L MCV 113.3 H MCH 38.0 H MCHC 33.6 RDW 14.6 H Plt Count 85 L MPV 11.7 H Immature Gran % (Auto) 0.0 Neut % (Auto) 52.6 Lymph % (Auto) 36.2 [place] % (Auto) 6.2 Eos % (Auto) 4.2 Baso % (Auto) 0.8 Lymph # (Auto) 0.94 [place] # (Auto) 0.2 Eos # (Auto) 0.1 Baso # (Auto) 0.0 Abs Immat Gran (auto) 0.00 Absolute Neuts (auto) 1.4 Absolute Nucleated RBC 0.000 Nucleated RBC % 0.0 Platelet Estimate Decreased % Immature Plt Fraction 10.0 Macrocytosis 2+ Schistocytes None seen Sodium 135 L Potassium 3.6 Chloride 105 Carbon Dioxide 24 Anion Gap 6 BUN < 2 L Creatinine 0.40 L Estim Creat Clear Calc 104 Estimated GFR > 60 Glucose 90 POC Capillary Glucose 102 103 Calcium 8.0 L Magnesium 2.0 Total Bilirubin 0.4 AST 81 H ALT 80 H Alkaline Phosphatase 120 Total Protein 6.0 L Albumin 2.7 L KATEY Screen 05/24/24 05/22/24 12:04 18:05 WBC RBC Hgb Hct MCV MCH MCHC RDW Plt Count MPV Immature Gran % (Auto) Neut % (Auto) Lymph % (Auto) [place] % (Auto) Eos % (Auto) Baso % (Auto) Lymph # (Auto) [place] # (Auto) Eos # (Auto) Baso # (Auto) Abs Immat Gran (auto) Absolute Neuts (auto) Absolute Nucleated RBC Nucleated RBC % Platelet Estimate % Immature Plt Fraction Macrocytosis Schistocytes Sodium Potassium Chloride Carbon Dioxide Anion Gap BUN Creatinine Estim Creat Clear Calc Estimated GFR Glucose POC Capillary Glucose 88 Calcium Magnesium Total Bilirubin AST ALT Alkaline Phosphatase Total Protein Albumin KATEY Screen Negative Preliminary micro results at discharge 05/21/24 17:16 Blood Culture - Preliminary Blood 05/21/24 15:46 Blood Culture - Preliminary Blood Imaging Radiologist's impression: ITS Impressions Abdomen/Pelvis CT 05/21/24 15:31 IMPRESSION: 1. Wall thickening of the rectosigmoid, consistent with colitis. Discharge Plan Discharge Attending physician on discharge: Cayden Maldonado Consulting providers: Jim Nunes; Elizabeth Velez Discharging Clinician: Cayden Maldonado Anticipated Discharge Date/Time: 05/25/24 11:57 Patient Disposition: Home, Self-Care Activity: as tolerated Diet: regular Discharge Instructions: Continue tube feeds as previously prescribed Routine G-tube care Patient Instructions: Antibiotic Form Stand Alone Forms: General Discharge Information Follow-up/Referrals: Jim Nunes MD [Physician] - 2 Weeks Alfredo Allred MD [Physician] - 2 Weeks Discharge Medications: New amoxicillin-pot clavulanate 875-125 mg tablet 1 tablet PO Q12H Qty: 6 0RF Continued duloxetine 60 mg Capsule,Delayed Release(Dr/Ec) 60 mg PO QAM Qty: 30 0RF ondansetron 8 mg tablet,disintegrating 8 mg PO Q8H PRN (Reason: nausea and vomiting) Qty: 90 0RF trazodone 50 mg tablet 50 mg feeding tube HS PRN (Reason: insomnia) thiamine HCl (vitamin B1) 100 mg tablet 100 mg feeding tube DAILY folic acid 1 mg tablet 1 mg feeding tube DAILY ferrous sulfate 325 mg (65 mg iron) tablet,delayed release (DR/EC) 325 mg PO BID Rx Instructions: patient administers via feeding tube megestrol 20 mg tablet 20 mg feeding tube QAM vitamin B complex [Vitamins B Complex] Capsule 1 cap feeding tube QAM multivitamin with folic acid [Thera] 400 mcg tablet 1 tablet PO QAM Rx Instructions: pt administers via feeding tube potassium chloride 10 mEq capsule, extended release 10 meq PO DAILY Qty: 30 0RF buprenorphine 5 mcg/hour patch weekly 1 patch transdermal Q7D 28 Days Qty: 4 0RF Rx Instructions: apply 1 patch to clean, dry, intact skin of the upper body. Remove, discard and replace every 7 days. Rotate site with each new placement. Date of admission: 05/21/24 16:00 Primary Care Provider: Mo Mitchell Admitting Provider: Ruba Nelson Attending physician on admission: Ruba Nelson Condition: Stable
[2024-05-25 12:00] VITALS: PULSE 113
[2024-05-25 12:06] LABS: Glucose Point of Care 111 mg/dl (65-105)
[2024-05-25 17:18] LABS: Beef IgE (F27) <0.10 kU/L; Lamb (F88) IgE <0.10 kU/L; Lamb Class 0; Pork (F26) IgE <0.10 kU/L; Pork Class 0
[2024-05-28 12:33] LABS: Mitochondrial (M2) Ab (IgG) <20.0 U
[2024-05-28 13:48] LABS: Actin Antibody (IgG) <20 U (<20)
[2024-05-28 16:14] LABS: Galactose Alpha 1,3 IgE <0.10 kU/L (<0.10)
[2024-05-29 14:28] LABS: Soluble Transferrin Receptor 1.33 mg/L (0.76-1.76)
[2024-05-29 15:28] LABS: Methylmalonic Acid 154 nmol/L (55-335)
== END 2024-05-25 13:30 | disposition home or self-care (01) | DRG 249 ==
LOC: ANHED 16:06 → ANH2MED 16:07
PROVIDERS: General Practice; Internal Medicine; Internal Medicine Gastroenterology; Internal Medicine Hematology & Oncology; Nurse Practitioner Family; Nurse Practitioner Gerontology; Admitting Provider Family Medicine; Emergency Provider Registered Nurse; PCP Internal Medicine; Visit Provider Internal Medicine
PROC: 0DJ08ZZ Inspection of Upper Intestinal Tract, Via Natural or Artificial Opening Endoscopic (ICD-10-PCS; CPT 43235; principal; 2024-05-24 13:30)
DX: K52.9 Noninfective gastroenteritis and colitis, unspecified (principal); E43 Unspecified severe protein-calorie malnutrition; E87.1 Hypo-osmolality and hyponatremia; E87.6 Hypokalemia; E83.42 Hypomagnesemia; E87.20 Acidosis, unspecified; R79.89 Other specified abnormal findings of blood chemistry; K29.30 Chronic superficial gastritis without bleeding; D61.818 Other pancytopenia; I34.1 Nonrheumatic mitral (valve) prolapse; G62.9 Polyneuropathy, unspecified; F50.82 Avoidant/restrictive food intake disorder; F11.23 Opioid dependence with withdrawal; F32.A Depression, unspecified; F41.9 Anxiety disorder, unspecified; F12.10 Cannabis abuse, uncomplicated; F17.210 Nicotine dependence, cigarettes, uncomplicated; Z93.1 Gastrostomy status; Z68.1 Body mass index [BMI] 19.9 or less, adult; Z80.0 Family history of malignant neoplasm of digestive organs
CPT/HCPCS: 36415; 74177; 80053; 80307; 81001; 81025; 81050; 82103; 82306; 82330; 82390; 82533; 82550; 82607; 82653; 82728; 82746; 82948; 83520; 83540; 83550; 83605; 83690; 83735; 83921; 83993; 84100; 84132; 84133; 84156; 84238; 84300; 84484; 85025; 85055; 85610; 85730; 86008; 86038; 86039; 86364; 87040; 87045; 87086; 87427; 87449; 87493; 88305; 93005; 96361; 96374; 96375; 99285; A9270; J0612; J0613; J2003; J2270; J2371; J2405; J2470; J2543; J2550; J2704; J3475; J3480; J7030; J7040; J7120; Q9967

== ENCOUNTER 2024-10-24 13:22 | Emergency (ER) | payer OTHER, SELFPAY ==
[2024-10-24 13:26] VITALS: BP 100/77; PULSE 68; RESP 16; TEMP 37.1; O2SAT 96
[2024-10-24 14:32] VITALS: BP 107/94; O2SAT 100
--- OUTSIDE RECORDS SUMMARY | 2024-10-24 14:42 | XMS_ITS ---
Author Organization Formerly [facility] Address [address] [place] [address] Care Team Providers Care Mechanical Handyman Name Role Phone Mo Mitchell Primary Care Provider Allergies Allergen (clinical drug ingredient) Drug/Non Drug Allergy documented on EMR Reaction Allergy Type Onset Date Status Latex Latex Unknown Allergy Active REASON FOR VISIT last seen 03/20/24 Medications Medication SIG (Take, Route, Frequency, Duration) Notes Start Date End Date Status DULoxetine HCl 60 MG 1 capsule Orally On ce a day for 30 days Active Pregabalin 150 MG 1 capsule Orally TWI CE a day for 30 days 02/13/2024 Active traZODone HCl 50 MG 1 tablet at bedtime as needed Orally Once a day for 30 days Active Ferrous Sulfate 325 (65 Fe) MG 1 tablet Orally twice a day for 30 day(s) Active Jevity 1.5 Chriss/Fiber - 75 mL feeding tube four times daily for 30 days via feeding tube followed by 100 mL water flush 02/13/2024 Active Folic Acid 1 MG 1 tablet Orally Once a day for 30 days Active GoodSense Nicotine 2 MG 1 piece chew for 30 minutes as needed Mouth/Throat EVERY 1-2 HOURS 11/14/2023 Active Multivitamin - 1 tablet Orally Once a day Active B-Complex-C - as directed Orally Active Acetaminophen 500 MG two tablets as need ed for pain (maximum of 6 tablets in 24 hours) Orally every 6 hrs 10/01/2024 Active Ondansetron 8 MG 1 tablet on the tong ue and allow to dissolve as needed Orally Once a day for 30 days Active Megestrol Acetate 20 MG 1 tablet Orally Twice a day for 30 days Active Butrans 5 MCG/HR 1 patch to skin Transdermal weekly Active Social History Tobacco Use: Social History Observation Description Date Details (start date - stop date) Current Smoker 04/10/2008 - NA Sex Assigned At : Social History Observation Description Sex Assigned At Female Tobacco Control (Standard) Question Answer Notes When did you start smoking? 04/10/2008 How often do you smoke cigarettes? Every day How many cigarettes a day do you smoke? 6-10 How soon after you wake up d o you smoke your first cigarette? 6-30 minutes Are you interested in quitting? Thinking about q uitting Tobacco use: Current smoker Additional Findings: Tobacco user Light cigarett e smoker (1-9 cigs/day) Vital Signs Weight 89.8 lbs 10/01/2024 Height 61 in 10/01/2024 BMI 16.97 kg/m2 10/01/2024 Blood pressure systolic 98 mm Hg 10/02/19 25 Blood pressure diastolic 80 mm Hg 025 Heart Rate 98 /min 10/01/2024 Oximetry 98 % 10/01/2024 Respiratory Rate 16 /min 10/01/2024 Encounters Encounter Location Date Provider Diagnosis [address] [address] 10/01/2024 Mo Mitchell Protein-calorie malnutrition, unspecified severity E46 ; Peripheral neuropathy G62.9 ; Eating disorder, unspecified F50.9 and Nicotine dependence, unspecified, uncomplicated F17.200 Assessments Encounter Date Diagnosis (ICD Code) Assessment Notes Treatment Notes Treatment Clinical Notes Section Notes 10/01/2024 Protein-calorie malnutrition, unspecified severity (ICD-10 - E46) 10/01/2024 Peripheral neuropathy (ICD-10 - G62.9) 10/01/2024 Eating disorder, unspecified (ICD-10 - F50.9) 10/01/2024 Nicotine dependence, unspecified, uncomplicated (ICD-10 - F17.200) Plan Of Treatment Medication Medication Name Sig Start Date Stop Date Notes Acetaminophen 500 MG two tablets as need ed for pain (maximum of 6 tablets in 24 hours) Orally every 6 hrs 10/01/2024 Ondansetron 8 MG 1 tablet on the tong ue and allow to dissolve as needed Orally Once a day for 30 days Megestrol Acetate 20 MG 1 tablet Orally Twice a day for 30 days Next Appt Details Follow Up: 3 Months, Reason: wt, smoking cessation Progress Notes * Ester LEÓNDOB:1990 (34 yo F)Acc No.[id number]:10/01/2024 Progress Notes Patient: Ester JEONG Provider: Ramin Mitchell :1990 A ge:34 Y S ex:Female Date:10/01/2024 Address:[address] [place] [address], [facility] Subjective: * Chief Complaints: * L ast seen 03/20/24 * HPI: I nterim History: F/U MALNUTRITION. WAS IN [facility]. FOR UTI ABOUT 6 WEEKS AGO. NO FURTHER CONSTIPATION ISSUES. STILL USING JEVITY BUT LESS OFTEN. MOST OF CALORIES ARE FROM EATING. PAIN ISSUES NOT TAKING HYDROCODONE. Emergency room visit Y es. Was hospitalized Y es. D epression Screening: PHQ-9 L ittle interest or pleasure in doing things?Not at all F eeling down, depressed, or hopeless N ot at all T rouble falling or staying asleep, or sleeping too much S everal days F eeling tired or having little energy S everal days P oor appetite or overeating S everal days F eeling bad about yourself or that you are a failure, or have let yourself or your family down N ot at all T rouble concentrating on things, such as reading the newspaper or watching television N ot at all M oving or speaking so slowly that other people could have noticed; or the opposite, being so fidgety or restless that you have been moving around a lot more than usual N ot at all T houghts that you would be better off or of hurting yourself in some way N ot at all T otal Score 3 I nterpretation M inimal Depression S creening: [place] Suicide Severity Rating Scale (LF) D o you want to initiate with S creener form 1 . Wish to be : Have you wished you were or wished you could go to sleep and not wake up? N o 2 . Suicidal Thoughts: Have you actually had any thoughts of killing yourself? N o 6 . Suicide Behavior Question: Have you ever done anything,started to do anything, or prepared to end your life? N o I nterpretation: L ow Risk C SSRS Interpretation and Follow Up Plan: CSSRS Interpretation and Follow Up Plan C SSRS Screen documented using SF Y es R isk Disposition from SF L ow - No Follow Up Plan Required F ollow Up Plan N o Follow Up Plan required at this time. * ROS: B asic ROS: Weight gain A dmits. * Medical History: * Surgical History: p eg tube hild 2016 * Hospitalization/Major Diagno stic Procedure: A [facility] 02/04/[facility]. infection 07/2024 * Family History: F ather: alive. M other: alive. 1 brother(s) , 1 sister(s) - healthy. 1 son(s) - healthy. . * Social History: P rimary Social History: L iving Arrangement L iving Arrangement: I ndependent Living I s this a supportive environment? Y es Alcohol Use A lcohol Use Frequency: M onthly or less Illicit Substance Usage I llicit Substance Usage: Y es S ubstance Used: C annabis F requency Cannabis is used: E very other day I nterested in quitting: N o Employment Status E mployment Status: U nemployed T obacco Use: T obacco Control (Standard) W hen did you start smoking? 0 04/10/2008 H ow often do you smoke cigarettes? E very day H ow many cigarettes a day do you smoke? 6 -10 H ow soon after you wake up do you smoke your first cigarette? 6 -30 minutes A re you interested in quitting? T hinking about quitting T obacco use: C urrent smoker A dditional Findings: Tobacco user L ight cigarette smoker (1-9 cigs/day) M iscellaneous: M ethod of learning P referred method of learning: D iscussion,Hearing * Medications: T akingButrans 5 MCG/HR Patch Weekly 1 patch to skin Transdermal weekly B-Complex-C - Tablet as directed Orally Multivitamin - Tablet 1 tablet Orally Once a day GoodSense Nicotine 2 MG Gum 1 piece chew for 30 minutes as needed Mouth/Throat EVERY 1-2 HOURS Folic Acid 1 MG Tablet 1 tablet Orally Once a day Jevity 1.5 Chriss/Fiber - Liquid 75 mL feeding tube four times daily via feeding tube followed by 100 mL water flushPregabalin 150 MG Capsule 1 capsule Orally TWICE a day DULoxetine HCl 60 MG Capsule Delayed Release Particles 1 capsule Orally Once a day Ferrous Sulfate 325 (65 Fe) MG Tablet Delayed Release 1 tablet Orally twice a day Megestrol Acetate 20 MG Tablet 1 tablet Orally Twice a day traZODone HCl 50 MG Tablet 1 tablet at bedtime as needed Orally Once a day Ondansetron 8 MG Tablet Disintegrating 1 tablet on the tongue and allow to dissolve as needed Orally Once a day Taking Butrans 5 MCG/HR Patch Weekly 1 patch to skin Transdermal weekly Taking B-Complex-C - Tablet as directed Orally Taking Multivitamin - Tablet 1 tablet Orally Once a day Taking GoodSense Nicotine 2 MG Gum 1 piece chew for 30 minutes as needed Mouth/Throat EVERY 1-2 HOURS Taking Folic Acid 1 MG Tablet 1 tablet Orally Once a day Taking Jevity 1.5 Chriss/Fiber - Liquid 75 mL feeding tube four times daily via feeding tube followed by 100 mL water flushTaking Pregabalin 150 MG Capsule 1 capsule Orally TWICE a day Taking DULoxetine HCl 60 MG Capsule Delayed Release Particles 1 capsule Orally Once a day Taking Ferrous Sulfate 325 (65 Fe) MG Tablet Delayed Release 1 tablet Orally twice a day Taking Megestrol Acetate 20 MG Tablet 1 tablet Orally Twice a day Taking traZODone HCl 50 MG Tablet 1 tablet at bedtime as needed Orally Once a day Taking Ondansetron 8 MG Tablet Disintegrating 1 tablet on the tongue and allow to dissolve as needed Orally Once a day DiscontinuedHYDROcodone-Acetaminophen 5-325 MG Tablet 1/2 tablet as needed Orally every 6 hrs As needed SEVERE PAINDiscontinued HYDROcodone-Acetaminophen 5-325 MG Tablet 1/2 tablet as needed Orally every 6 hrs As needed SEVERE PAIN * Allergies: L una[Allergies Verified] Objective: * Vitals: I nitials: dt, Wt:89.8, Ht: 61, BMI:16.97, BP:98/80, HR:98, Oxygen sat %:98, RR:16, LMP: n/a, Pain scale:6. * Examination: G eneral Examination: GENERAL APPEARANCE: w ell developed, well nourished, in no acute distress. HEART: r egular rate and rhythm, no murmurs. LUNGS: r espirations regular and easy, clear to auscultation bilaterally. EXTREMITIES: n o clubbing, cyanosis, or edema. ? Assessment: * Assessment: 1. P rotein-calorie malnutrition, unspecified severity - E46 (Primary) 2 . P eripheral neuropathy - G62.9 3 . E ating disorder, unspecified - F50.9 ? 4 . N icotine dependence, unspecified, uncomplicated - F17.200 Plan: * Treatment: 2. E ating disorder, unspecified Refill Megestrol Acetate Tablet, 20 MG, 1 tablet, Orally, Twice a day, 30 days, 60 Tablet, Refills 2. 3. O thers Refill Ondansetron Tablet Disintegrating, 8 MG, 1 tablet on the tongue and allow to dissolve as needed, Orally, Once a day, 30 days, 30, Refills 2. * Recommended Wellness and Pre vention Guidelines: * S tatus A lert L ast Done N ext Due A ction Taken N ONCOMPLIANT A lcohol use screening - 0 10/01/2024 - N ONCOMPLIANT C ervical cancer screening - 0 10/01/2024 - N ONCOMPLIANT H IV screening - 0 10/01/2024 - * Procedure Codes: 3 008F BODY MASS INDEX [id number] MEDICAL NUTRITION, INDIV, [id number] BEHAV CHNG SMOKING 3-10 MIN * Preventive Medicine: Counseling: C are goal follow-up plan: BMI management provided Y es Below Normal BMI Follow-up L ifestyle education regarding diet S MOKING: Patient counselled on the dangers of tobacco use and urged to quit. . * Follow Up: 3 Months (Reason: wt, smoking cessation) * * Sign off status: Completed true * Provider: Ramin Mitchell Date: 0 10/01/2024 Generated for Edinson miller/Gabriella/Carleen on: 0 10/24/2024 02:42 PM CDT History and Physical Notes * HPI (History of Present Illness) Category Sub-Category Detail Notes Category Not es Interim History Was hospitalized Yes Emergency room visit Yes Depression Screening PHQ-9 Little inte rest or pleasure in doing things: Not at all Feeling down, depressed, or hopeless: No t at all Trouble falling or staying asleep, or sl eeping too much: Several days Feeling tired or having little energy: S everal days Poor appetite or overeating: Several day s Feeling bad about yourself o r that you are a failure, or have let yourself or your family down: Not at all Trouble concentrating on thi ngs, such as reading the newspaper or watching television: Not at all Moving or speaking so slowly that other people could have noticed; or the opposite, being so fidgety or restless that you have been moving around a lot more than usual: Not at all Thoughts that you would be b saurabh off or of hurting yourself in some way: Not at all Total Score: 3 Interpretation: Minimal Depression Screening [place] Suicide Sev erity Rating Scale (LF) Do you want to initiate with: Screener form 1. Wish to be : Have you wished you were or wished you could go to sleep and not wake up?: No 2. Suicidal Thoughts: Have you actually had any thoughts of killing yourself?: No 6. Suicide Behavior Question: Have you ever done anything,started to do anything, or prepared to end your life?: No Interpretation:: Low Risk CSSRS Interpretation and Follow Up Plan CSSRS Interpretation and Follow Up Plan CSSRS Screen documented using SF: Yes Risk Disposition from SF: Low - No Follo w Up Plan Required Follow Up Plan: No Follow Up Plan requir ed at this time. Examination Category Sub-Category Detail Notes Category Not es General Examination GENERAL APPEARANCE: well dev eloped, well nourished, in no acute distress HEART: regular rate and rhy thm, no murmurs LUNGS: respirations regular and easy, clear to auscultation bilaterally EXTREMITIES: no clubbing, cyanosi s, or edema
--- OUTSIDE RECORDS SUMMARY | 2024-10-24 14:42 | XMS_ITS | Encounter Summary ---
Author Organization [facility] Facility Care Team Providers Care Flatcar Whacker Name Role Phone Christian Merritt MD Primary Care Provider [phone] Encounter Details Date Type Department Care Team (Latest Contact Info) Description 01/05/2017 Orders Only [facility] CLINCONV ProviderSerge MD [address] [place], [place] [id number] Social History Tobacco Use Types Packs/Day Years Used Date Smoking Tobacco: Never Assessed Comments Unknown Sex and Gender Information Value Date Recorded Sex Assigned at Not on file Legal Sex Female 8:06 PM TALENT AGENT Gender Identity Not on file Sexual Orientation Not on file documented as of this encounter Plan of Treatment Not on file documented as of this encounter Procedures Procedure Name Priority Date/Time Associated Diagnosis Comments SCAN - LABS 01/05/2017 12:00 AM CDT documented in this encounter Results * SCAN - LABS (01/05/2017 12:00 AM CDT) Narrative 01/05/2017 12:00 AM CDT Ordered by an unspecified provider. us Historical Provider Final Res ult documented in this encounter Visit Diagnoses Not on filedocumented in this encounter Care Teams Flatcar Whacker Relationship Specialty Start Date End Date Christian Merritt MD PCP - General Emergency Medicine 06/10/22 documented as of this encounter
--- OUTSIDE RECORDS SUMMARY | 2024-10-24 14:42 | XMS_ITS ---
Author Organization [facility] Address [address] [place] [address] Care Team Providers Care Anesthesiology Technologist Name Role Phone Mo Mitchell Primary Care Provider REASON FOR VISIT New Refill Request Medications Medication SIG (Take, Route, Fr equency, Duration) Notes Start Date End Date Status Megestrol Acetate 20 MG 1 tablet Orally Twice a day for 30 days Active Acetaminophen 500 MG two tablets as need ed for pain (maximum of 6 tablets in 24 hours) Orally every 6 hrs 10/01/2024 Active Social History Sex Assigned At : Social History Observation Description Sex Assigned At Female Encounters Encounter Location Date Provider Diagnosis [address] [address] 10/15/2024 Mo Mitchell Eating disorder, unspecified F50.9 and Peripheral neuropathy G62.9 Assessments Encounter Date Diagnosis (ICD Code) Assessment Notes Treatment Notes Treatment Clinical Notes Section Notes 10/15/2024 Eating disorder, unspecified (ICD-10 - F50.9) 10/15/2024 Peripheral neuropathy (ICD-10 - G62.9) Plan Of Treatment Medication Medication Name Sig Start Date Stop Date Notes Megestrol Acetate 20 MG 1 tablet Orally Twice a day for 30 days Acetaminophen 500 MG two tablets as need ed for pain (maximum of 6 tablets in 24 hours) Orally every 6 hrs 10/01/2024 Progress Notes * Ester LEÓNDOB:1990 (34 yo F)Acc No.[id number]:10/15/2024 Patient: Ester JEONG :1990 A ge:34 Y S ex:Female Address:[address] [place] [place], [address] * Refills Refill Megestrol Acetate Tablet, 20 MG, Orally, 60 Tablet, 1 tablet, Twice a day, 30 days, Refills=2 Refill Acetaminophen Tablet, 500 MG, Orally, 120, two tablets as needed for pain (maximum of 6 tablets in 24 hours), every 6 hrs, Refills=5 * true * Date: Generated for Edinson miller/Gabriella/Carleen on: 0 10/24/2024 02:42 PM CDT
--- OUTSIDE RECORDS SUMMARY | 2024-10-24 14:42 | XMS_ITS | Referral Summary ---
Author Organization [facility] Address [address] [place] [address] Care Team Providers Care Director Money Name Role Phone Christian Merritt MD Primary Care Provider [phone] Allergies Active Allergy Reactions Criticality Noted Date Comments Latex Hives Medium 02/27/2017 Medications famotidine (PEPCID) 20 mg tablet Take 1 tablet (20 mg total) by mouth daily 7 tablet 06/12/2022 Active gabapentin (NEURONTIN) 300 mg capsule Take 1 capsule (300 mg total) by mouth 3 (three) times a day 90 capsule 06/26/[address] (CYMBALTA) 60 mg capsule Take 1 capsule (60 mg total) by mouth nightly 30 capsule 06/26/2023 Active Active Problems Problem Noted Date Diagnosed Date Hypokalemia 06/11/2022 Numbness of left foot 06/11/2022 Tobacco dependence 06/11/2022 Marijuana smoker 06/11/2022 Left foot drop 06/10/2022 Thrombocytopenia Immunizations Immunization Administration Dates Next Due DTaP 12/06/2016 HPV, Quadrivalent 04/19/2007 Td, adsorbed 05/10/2005 Tdap 12/06/2016 Social History Tobacco Use Types Packs/Day Years Used Date Smoking Tobacco: Every Day Cigarettes Smokeless Tobacco: Never Tobacco Cessation:Ready to Q uit: No; Counseling Given: No AUDIT-C Answer Date Recorded Q1: How often do you have a drink containing alc ohol? Monthly or less 06/10/2022 Average Number of Drinks Not on file 022 Q3: How often do you have si x or more drinks on one occasion? Never 06/10/2022 Personal Safety Answer Date Recorded Have you ever been in or are you currently in a harmful physical or emotional relationship or is someone making you feel afraid or unsafe? Denies 06/26/2023 Comments No Sex and Gender Information Value Date Recorded Sex Assigned at Not on file Legal Sex Female 8:06 PM DESKTOP SUPPORT SPECIALIST Gender Identity Not on file Sexual Orientation Not on file Last Filed Vital Signs Vital Sign Reading Time Taken Comments Blood Pressure 105/79 06/26/2023 9:30 PM DESKTOP SUPPORT SPECIALIST Pulse 84 06/26/2023 9:30 PM DESKTOP SUPPORT SPECIALIST Temperature 36.7 C (98 F) 06/26/2023 3:35 PM DESKTOP SUPPORT SPECIALIST Respiratory Rate 18 06/26/2023 3:35 PM DESKTOP SUPPORT SPECIALIST Oxygen Saturation 98% 06/26/2023 9:30 PM DESKTOP SUPPORT SPECIALIST Inhaled Oxygen Concentration - - Weight 38.6 kg (85 lb) 06/26/2023 3:35 PM DESKTOP SUPPORT SPECIALIST Height 154.9 cm (5' 1 ) 06/26/2023 3:35 PM DESKTOP SUPPORT SPECIALIST Body Mass Index 16.06 06/26/2023 3:35 PM DESKTOP SUPPORT SPECIALIST Plan of Treatment Not on file Procedures Procedure Name Priority Date/Time Associated Diagnosis Comments THINPREP TIS PAP REFLEX HPV MRNA E6/E7, CHLAMYDIA/N.GONORRH OEAE Routine 09/14/2016 12:56 PM DESKTOP SUPPORT SPECIALIST HEPATITIS C ANTIBODY Routine 09/14/2016 11:43 AM DESKTOP SUPPORT SPECIALIST from Last 3 Months or Most Recently Relevant to Health Maintenance Results * THINPREP TIS PAP REFLEX HPV mRNA E6/E7, CHLAMYDIA/N.GONORRHOEAE (09/14/2016 12:56 PM DESKTOP SUPPORT SPECIALIST) CLINICAL INFORMATION [facility] HISTORICAL RESULTS Comment: LMP: [facility] HISTORICAL RESULTS PREV. PAP: [facility] HISTORICAL RESULTS Comment:2011 PREV. BX: [facility] HISTORICAL RESULTS Comment:UNKNOWN SOURCE: [facility] HISTORICAL RESULTS Comment:Cervix, Endocervix STATEMENT OF ADEQUACY: [facility] HISTORICAL RESULTS Comment:Satisfactory for savana luation. Endocervical/transformation zone component present. INTERPRETATION/RES ULT: [facility] HISTORICAL RESULTS Comment:Negative for intraep ithelial lesion or malignancy. COMMENT: [facility] HISTORICAL RESULTS Comment:This Pap test has be en evaluated with computer assisted technology. CONTINUOUS IMPROVEMENT BLACK BELT: [facility] HISTORICAL RESULTS Comment:YQ, CT(ASCP) CT scre ening location: [place] [address] [place] [address] C. trachomatis RNA NOT DETECTED NOT DETECTED [facility] HISTORICAL RESULTS N. gonorrhoeae RNA NOT DETECTED NOT DETECTED [facility] HISTORICAL RESULTS COMMENT [facility] HISTORICAL RESULTS Comment: This test was performed using the APTIMA COMBO2 Assay ([employer] The analytical performance characteristics of this assay, when used to test SurePath specimens have been determined by [employer]. 09/14/2016 12:5 6 PM DESKTOP SUPPORT SPECIALIST 09/20/2016 11:25 AM DESKTOP SUPPORT SPECIALIST Narrative [facility] HISTORICAL RESULTS - 09/20/2016 11:07 AM DESKTOP SUPPORT SPECIALIST 0 PERFORMING LAB: [place] [address] [facility] [id number] Pelon Hand MD us Irene Spivey CNM LAB PATHOLOGY ORDERABLE S Final Result Performing Organization Address City/[facility] de Phone Number [facility] HISTORICAL RESULTS * Hepatitis C antibody (09/14/2016 11:43 AM DESKTOP SUPPORT SPECIALIST) Hep C Ab NON-REACTI VE NON-REACTI VE [facility] HISTORICAL RESULTS SIGNAL TO CUT-OFF 0.01 <1.00 [facility] HISTORICAL RESULTS 09/14/2016 11:4 3 AM DESKTOP SUPPORT SPECIALIST 09/18/2016 6:40 AM DESKTOP SUPPORT SPECIALIST Narrative [facility] HISTORICAL RESULTS - 09/18/2016 6:21 AM DESKTOP SUPPORT SPECIALIST 0; 0; 0; 0; 0; 0; 0; 0 FASTING:NO PERFORMING LAB: [facility] [id number] [phone] James Wu D.O., MPH us Irene Spivey CNM LAB MICROBIOLOGY - GENE RAL ORDERABLES Final Result Performing Organization Address City/[facility]/ZIP Co de Phone Number [facility] HISTORICAL RESULTS from Last 3 Months or Most Recently Relevant to Health Maintenance Insurance Advance Directives For more information, please contact: [phone] * Full Code (Latest Code Status on File) Date Activated Date Inactivated Comments 06/10/2022 11:46 PM 06/12/2022 5:21 PM Care Teams Director Money Relationship Specialty Start Date End Date Christian Merritt MD PCP - General Emergency Medicine 06/10/22
--- OUTSIDE RECORDS SUMMARY | 2024-10-24 14:42 | XMS_ITS | Clinical Summary ---
Author Organization [facility] Address [address] [place] [address] Care Team Providers Care Staffing Clerk Name Role Phone Christian Merritt MD Primary Care Provider [phone] Allergies Active Allergy Reactions Criticality Noted Date [...] Quadrivalent 04/19/2007 Td, adsorbed 05/10/2005 Tdap 12/06/2016 Medical History Medical History Date Comments Mitral valve prolapse Social History Tobacco Use Types Packs/Day Years [...] on file Legal Sex Female 8:06 PM FURNITURE SERVICER Gender Identity Not on file Sexual Orientation Not on file Obstetrics History Last Filed Vital Signs Vital Sign Reading Time Taken Comments Blood Pressure 105/79 06/26/2023 9:30 PM FURNITURE SERVICER Pulse 84 06/26/2023 9:30 PM FURNITURE SERVICER Temperature 36.7 C (98 F) 06/26/2023 3:35 PM FURNITURE SERVICER Respiratory Rate 18 06/26/2023 3:35 PM FURNITURE SERVICER Oxygen Saturation 98% 06/26/2023 9:30 PM FURNITURE SERVICER Inhaled Oxygen Concentration - - Weight 38.6 kg (85 lb) 06/26/2023 3:35 PM FURNITURE SERVICER Height 154.9 cm (5' 1 ) 06/26/2023 3:35 PM FURNITURE SERVICER Body Mass Index 16.06 06/26/2023 3:35 PM FURNITURE SERVICER Plan of Treatment Health Maintenance Due Date Last Done Comments Depression Screening 1991 Varicella Vaccines (1 of 2 - 13+ 2-dose series) 02/03/2004 HPV Vaccines (2 - 3-dose series) 05/17/2007 04/19/20 07 Hepatitis B Screening 2009 Regular Well Visit/Exam 18-64 2009 Pneumococcal vaccine <65 (1 of 2 - PCV) 2010 Cervical Cancer Screening 09/14/2017 09/14/2016 Influenza Vaccine (#1) 2024 DTaP/Tdap/Td Vaccine (3 - Td or Tdap) 12/06/2026 12/06/2016, 12/06/2016, 05/10/2005 Hepatitis C Screening Completed 09/14/2016 Procedures Procedure Name Priority Date/Time Associated Diagnosis Comments THINPREP TIS PAP REFLEX HPV MRNA E6/E7, CHLAMYDIA/N.GONORRH OEAE Routine 09/14/2016 12:56 PM FURNITURE SERVICER HEPATITIS C ANTIBODY Routine 09/14/2016 11:43 AM FURNITURE SERVICER from Last 3 Months or Most Recently Relevant to Health Maintenance Results * THINPREP TIS PAP REFLEX HPV mRNA E6/E7, CHLAMYDIA/N.GONORRHOEAE (09/14/2016 12:56 PM FURNITURE SERVICER) CLINICAL INFORMATION [facility] HISTORICAL RESULTS Comment: LMP: [facility] EC HISTORICAL RESULTS PREV. PAP: [facility] HISTORICAL RESULTS Comment:2011 PREV. BX: [facility] EC HISTORICAL RESULTS Comment:UNKNOWN SOURCE: [facility] EC HISTORICAL RESULTS Comment:Cervix, Endocervix STATEMENT OF ADEQUACY: [facility] EC HISTORICAL RESULTS Comment:Satisfactory for savana luation. Endocervical/transformation zone component present. INTERPRETATION/RES ULT: [facility] EC HISTORICAL RESULTS Comment:Negative for intraep ithelial lesion or malignancy. COMMENT: [facility] HISTORICAL RESULTS Comment:This Pap test has be en evaluated with computer assisted technology. ASSET MANAGEMENT COORDINATOR: [facility] HISTORICAL RESULTS Comment:YQ, CT(ASCP) CT scre ening location: [place] [address] [place] [address] C. trachomatis RNA NOT DETECTED NOT DETECTED [facility] HISTORICAL RESULTS N. gonorrhoeae RNA NOT DETECTED NOT DETECTED [facility] HISTORICAL RESULTS COMMENT [facility] HISTORICAL RESULTS Comment: This test was performed using the APTIMA COMBO2 Assay ([employer] The analytical performance characteristics of this assay, when used to test SurePath specimens have been determined by [employer]. 09/14/2016 12:5 6 PM FURNITURE SERVICER 09/20/2016 11:25 AM FURNITURE SERVICER Narrative [facility] HISTORICAL RESULTS - 09/20/2016 11:07 AM FURNITURE SERVICER 0 PERFORMING LAB: [place] [address] [facility] [address] Pelon Hand MD Irene Spivey [facility] LAB PATHOLOGY ORDERABLE S Final Result [facility] HISTORICAL RESULTS * Hepatitis C antibody (09/14/2016 11:43 AM FURNITURE SERVICER) Pathologist [facility] Hep C Ab NON-REACTI VE NON-REACTI VE [facility] HISTORICAL RESULTS SIGNAL TO CUT-OFF 0.01 <1.00 [facility] HISTORICAL RESULTS 09/14/2016 11:4 3 AM FURNITURE SERVICER 09/18/2016 6:40 AM FURNITURE SERVICER Narrative [facility] HISTORICAL RESULTS - 09/18/2016 6:21 AM FURNITURE SERVICER 0; 0; 0; 0; 0; 0; 0; 0 FASTING:NO PERFORMING LAB: [place], [facility] [address] [place] [address] James Wu D.O., MPH us Irene Spivey CNM LAB MICROBIOLOGY - GENE RAL ORDERABLES Final Result [facility] HISTORICAL RESULTS from Last 3 Months or Most Recently Relevant to Health Maintenance Insurance Member Subscriber Plan / Payer (Ef fective 2018-Present) Name:Ester León Relation to Subscriber:Self Name:Ester León Payer ID:[id number] (NAIC) Type:MEDICAID RISK OTHER Address: [place] [id number] [facility] Advance Directives For more information, please contact: [phone] * Full Code (Latest Code Status on File) Date Activated Date Inactivated Comments 06/10/2022 11:46 PM 06/12/2022 5:21 PM Care Teams Staffing Clerk Relationship Specialty Start Date End Date Christian Merritt MD PCP - General Emergency Medicine 06/10/22
--- OUTSIDE RECORDS SUMMARY | 2024-10-24 14:42 | XMS_ITS | Patient Health Record ---
Author Organization [facility] Address [address] [place] [address] Care Team Providers Care Theater Technician Name Role Phone Mo Mitchell Primary Care Provider Aj Larry Unavailable [phone] Marilu Mora Unavailable [phone] Allergies Allergen (clinical drug ingredient) Drug/Non Drug Allergy documented on EMR Reaction Allergy Type Onset Date Status Latex Latex Unknown Allergy Active Results Component Value Reference Range Notes 12 Panel Urine Drug Screen Reviewed date:01/02/2024 03:43:15 PM Interpretation: Performing Lab: Notes/Report: THC pos JONI n MOP (OPI) pos AMP n MET n BAR n BZO n MDMA n MTD n OXY n PCP n BUP n Reason For Referral Reason comprehensive eating disorder clinic Diagnosis 1 Eating disorder, uns pecified (F50.9) Referral Organization Critical access hospital Referring Provider First Name Mo Referring Provider Last Name Paula Referring Provider Speciality Internal M edicine Referred Provider Specialty Psychiatry s ervice General Notes BRITTANIE Steel Stephanie N 02/10/2024 09:48:12 AM >[facility] does not accept Medicaid.Damián RN, Stephanie N 02/10/2024 09:48:35 AM > [facility] [place] does not accept Medicaid.Damián RN, Stephanie N 02/10/2024 09:51:40 AM > [facility] does not accept medicaid.Damián RN, Stephanie N 02/10/2024 10:13:09 AM > [facility] in [place] offers intensive outpatient and partial hospitalization programs. Distance of approximately 2.5 hours [address] distance for pt.Damián RN, Stephanie N 02/20/2024 10:06:04 AM >Health Navigator, Eboni Nath, located the following programs in the [facility] that accept Zhao:, 1. [facility] - [place], [place] IP, PHP, IOP, OP IP/PHP/IOP/OP- adults, all genders, RTC- adults, female-identifying. (located in [place], [place] near [place]): [phone]., 2. [facility] [place], [place] PHP, IOP, OP Adults, adolescents, all genders - phone [phone], Reviewed [facility] information. It is a general [facility] hospital with an eating disorder program that is partial hospitalization format.Damián RN, Stephanie N 08/03/2024 03:14:08 PM >voice message left for Ester to return our call regarding this referral.Damián RN, Stephanie N 08/17/2024 11:49:18 AM >letter mailed to Ester requesting that she calls us regarding the referral. Referral Priority Routine Reason PROTEIN-CALORIE MALN UTRITION DUE TO EATING DISORDER, PERIPHERAL NEUROPATHY, WEAKNESS AND UNSTEADY GAIT, TRIPS AND FALLS Diagnosis 1 Unsteady gait (R26.8 1) Referral Organization Critical access hospital Referring Provider First Name Mo Referring Provider Last Name Paula Referring Provider Speciality Internal M edicine Referred Provider Specialty Physical The rapist General Notes BRITTANIE Patton, Tory Manzano 05/11/2024 09:02:12 AM > Referral to [facility] PT. letter to pt. Clinical Notes [facility] Physical Therap y, [address] [facility] [address], , Referral Priority Routine Medications Medication SIG (Take, Route, Frequency, Duration) Notes Start Date End Date Status Pregabalin 150 MG 1 capsule Orally TWI CE a day for 30 days 02/13/2024 Active Ondansetron 8 MG 1 tablet on the tong ue and allow to dissolve as needed Orally Once a day for 30 days Active Jevity 1.5 Chriss/Fiber - 75 mL [...] Active B-Complex-C - as directed Orally Active Butrans 5 MCG/HR 1 patch to skin Transdermal weekly Active Ferrous Sulfate 325 (65 Fe) MG 1 tablet Orally twice a day for 30 day(s) Active DULoxetine HCl 60 MG 1 capsule Orally On ce a day for 30 days Active Megestrol Acetate 20 MG 1 tablet Orally Twice a day for 30 days Active Acetaminophen 500 MG two tablets as need ed for pain (maximum of 6 tablets in 24 hours) Orally every 6 hrs 10/01/2024 Active traZODone HCl 50 MG 1 tablet at bedtime as needed Orally Once a day for 30 days Active Social History Tobacco Use: Social History [...] user Light cigarett e smoker (1-9 cigs/day) Problems Problem Type SNOMED Code ICD Code Onset Dates Problem Status W/U Status Risk Notes Problem Tobacco user (707145593) Nicotine dependence, unspecified, uncomplicated (F17.200) Active confirmed Problem Eating disorder (31813929) Eating disorder, unspecified (F50.9) Active confirmed Problem Peripheral neuropathy (046692019) Peripheral neuropathy (G62.9) Active confirmed Problem Unsteady gait (71201308) Unsteady gait (R26.81) Active confirmed Problem Deficiency of macronutrients (disorder) (808031153) Protein-calorie malnutrition, unspecified severity (E46) Active confirmed Vital Signs Heart Rate 98 /min 10/01/2024 Temperature 97.2 degrees Fahrenheit 03/20/2024 Respiratory Rate 16 /min 10/01/2024 Oximetry 98 % 10/01/2024 Blood pressure diastolic 80 mm Hg 10/01/2024 Height 61 in 10/01/2024 Blood pressure systolic 98 mm Hg 10/01/2024 Weight 89.8 lbs 10/01/2024 BMI 16.97 kg/m2 10/01/2024 Encounters Encounter Location Date Provider Diagnosis [address] [address] 11/14/2023 Mo Mitchell Neuropathic pain M79.2 ; Muscle weakness M62.81 ; Protein-calorie malnutrition, unspecified severity E46 ; Hypokalemia E87.6 and Nicotine dependence, unspecified, uncomplicated F17.[address] [address] 11/30/2023 Mo Mitchell Protein-calorie malnutrition, unspecified severity E46 and Peripheral neuropathy G62.[address] [address] 01/02/2024 Mo Mitchell Protein-calorie malnutrition, unspecified severity E46 ; Peripheral neuropathy G62.9 ; Nutritional counseling Z71.3 ; Patient underweight R63.6 ; Non-tobacco user Z78.9 and Opioid use F11.[address] [address] 02/13/2024 Mo Mitchell Peripheral neuropath y G62.9 ; Protein-calorie malnutrition, unspecified severity E46 ; Patient underweight R63.6 ; Nutritional counseling Z71.3 ; Non-tobacco user Z78.9 and Anxiety F41.[address] [address] 03/20/2024 Mo Mitchell Peripheral neuropath y G62.9 ; Eating disorder, unspecified F50.9 ; Unsteady gait R26.81 ; Protein-calorie malnutrition, unspecified severity E46 and Periodontal disease K05.[address] [address] 03/20/2024 Marilu Mora [address] [address] 10/01/2024 Mo Mitchell Protein-calorie malnutrition, unspecified severity E46 ; Peripheral neuropathy G62.9 ; Eating disorder, unspecified F50.9 and Nicotine dependence, unspecified, uncomplicated F17.[address] [place] [address] 11/25/2023 Mo Mitchell Neuropathic pain M79.2 [facility] [address] [place] [address] 12/05/2023 Mo Mitchell Neuropathic pain M79.2 [facility] [address] [place] [address] 12/15/2023 Mo Mitchell Neuropathic pain M79.[address] [place] [address] 12/26/2023 Mo Mitchell Neuropathic pain M79.[address] [place] [address] 01/11/2024 Mo Mitchell Peripheral neuropath y G62.9 [facility] [address] [place] [address] 01/18/2024 Mo Mitchell Peripheral neuropath y G62.[address] [place] [address] 01/25/2024 Mo Mitchell Peripheral neuropath y G62.9 [facility] [address] [place] [address] 02/09/2024 Mo Mitchell [address] [place] [address] 02/20/2024 Mo Mitchell [address] [place] [address] 02/08/2024 Mo Mitchell Peripheral neuropath y G62.9 and Eating disorder, unspecified F50.[address] [place] [address] 02/08/2024 Mo Mitchell [address] [place] [address] 02/09/2024 Mo Mitchell Eating disorder, unspecified F50.9 and Peripheral neuropathy G62.[address] [address] 02/20/2024 Mo Mitchell Peripheral neuropath y G62.[address] [address] 02/29/2024 Aj Larry Peripheral neuropath y G62.[address] [address] 03/01/2024 Mo Mitchell [address] [address] 03/19/[address] [address] 04/20/2024 Mo Mitchell [address] [address] 06/13/[address] [address] 06/14/2024 Mo Mitchell Eating disorder, unspecified F50.[address] [address] 06/18/2024 Mo Mitchell [address] [address] 06/27/2024 Mo Mitchell [address] [address] 07/27/2024 Mo Mitchell [address] [address] 07/30/2024 Mo Mitchell [address] [address] 09/25/2024 Mo Mitchell [address] [address] 10/15/2024 Mo Mitchell Eating disorder, unspecified F50.9 and Peripheral neuropathy G62.9 Assessments Encounter Date Diagnosis (ICD Code) Assessment Notes Treatment Notes Treatment Clinical Notes Section Notes 10/01/2024 Protein-calorie malnutrition, unspecified severity (ICD-10 - E46) 10/15/2024 Eating disorder, unspecified (ICD-10 - F50.9) 10/01/2024 Peripheral neuropathy (ICD-10 - G62.9) 11/25/2023 Neuropathic pain (ICD-10 - M79.2) 11/30/2023 Peripheral neuropathy (ICD-10 - G62.9) 11/30/2023 Protein-calorie malnutrition, unspecified severity (ICD-10 - E46) 12/05/2023 Neuropathic pain (ICD-10 - M79.2) 12/15/2023 Neuropathic pain (ICD-10 - M79.2) 12/26/2023 Neuropathic pain (ICD-10 - M79.2) 01/02/2024 Peripheral neuropathy (ICD-10 - G62.9) TAKE PREGABALIN 50 MG BID UNTIL CURRENT CAPS RUN OUT THEN INCREASE TO 75 MB BID 01/02/2024 Protein-calorie malnutrition, unspecified severity (ICD-10 - E46) CONTINUE BOLUS TF QID 01/11/2024 Peripheral neuropathy (ICD-10 - G62.9) 01/18/2024 Peripheral neuropathy (ICD-10 - G62.9) 01/25/2024 Peripheral neuropathy (ICD-10 - G62.9) 02/08/2024 Eating disorder, unspecified (ICD-10 - F50.9) 02/08/2024 Peripheral neuropathy (ICD-10 - G62.9) 02/09/2024 Eating disorder, unspecified (ICD-10 - F50.9) 02/09/2024 Peripheral neuropathy (ICD-10 - G62.9) 11/14/2023 Muscle weakness (ICD-10 - M62.81) AWAIT RESULTS OF EMG/NCV FROM [facility] TODAY 11/14/2023 Neuropathic pain (ICD-10 - M79.2) 02/13/2024 Peripheral neuropathy (ICD-10 - G62.9) 02/13/2024 Protein-calorie malnutrition, unspecified severity (ICD-10 - E46) SUSPECT UNDERLYING EATING DISORDER 02/20/2024 Peripheral neuropathy (ICD-10 - G62.9) 02/29/2024 Peripheral neuropathy (ICD-10 - G62.9) 03/20/2024 Eating disorder, unspecified (ICD-10 - F50.9) 03/20/2024 Peripheral neuropathy (ICD-10 - G62.9) 06/14/2024 Eating disorder, unspecified (ICD-10 - F50.9) 03/20/2024 Unsteady gait (ICD-10 - R26.81) 02/13/2024 Patient underweight (ICD-10 - R63.6) 01/02/2024 Nutritional counseling (ICD-10 - Z71.3) 11/14/2023 Protein-calorie malnutrition, unspecified severity (ICD-10 - E46) MAY DECREASE JEVITY FROM 185 ML Q 4H TO 240 ML QID. 10/15/2024 Peripheral neuropathy (ICD-10 - G62.9) 10/01/2024 Eating disorder, unspecified (ICD-10 - F50.9) 02/13/2024 Nutritional counseling (ICD-10 - Z71.3) 11/14/2023 Hypokalemia (ICD-10 - E87.6) RESOLVED. HAS F/U LABS ORDERED FROM HOSPITAL DISCHARGE 11/11/2023. 03/20/2024 Protein-calorie malnutrition, unspecified severity (ICD-10 - E46) 10/01/2024 Nicotine dependence, unspecified, uncomplicated (ICD-10 - F17.200) 01/02/2024 Patient underweight (ICD-10 - R63.6) 01/02/2024 Non-tobacco user (ICD-10 - Z78.9) 03/20/2024 Periodontal disease (ICD-10 - K05.6) SEE DENTIST MADIHA 02/13/2024 Non-tobacco user (ICD-10 - Z78.9) 01/02/2024 Opioid use (ICD-10 - F11.90) 11/14/2023 Nicotine dependence, unspecified, uncomplicated (ICD-10 - F17.200) 02/13/2024 Anxiety (ICD-10 - F41.9) SUSPECT UNDERLYING EATING DISORDER PSYCH REFERRAL SENT EARLIER AND PENDING Plan Of Treatment No Information Insurance Providers Payer Name Payer Address Payer Phone Subscriber Number Group Number Insured Name Patient Relationship to Insured Coverage Start Date Coverage End Date [employer] [address] [phone] [id number] Ester León Self - patient is the insured 4 Medical (General) History Surgical History Surgery Date(Month/Year) peg tube 10/2023 child 2016 Hospitalization History Reason Date(Month/Year) [facility]. infection 07/2024 [facility] 02/04/17
--- OUTSIDE RECORDS SUMMARY | 2024-10-24 14:42 | XMS_ITS ---
Author Organization [facility] Address [address] [place] [address] Care Team Providers Care Outside Plant Cable Engineer Name Role Phone Mo Mitchell Primary Care Provider REASON FOR VISIT New Refill Request Social History Sex Assigned At : Social History Observation Description Sex Assigned At Female Encounters Encounter Location Date Provider Diagnosis [address] [place] [address] 09/25/2024 Mo Mitchell Plan Of Treatment No Information Progress Notes * Ester LEÓNDOB:1990 (34 yo F)Acc No.[id number]:09/25/2024 Patient: Ester JEONG :1990 A ge:34 Y S ex:Female Address:[address] [facility] [facility], [place], [address] * true * Date: Generated for Edinson miller/Gabriella/eTransmitting on: 0 10/24/2024 02:42 PM CDT
--- OUTSIDE RECORDS SUMMARY | 2024-10-24 14:42 | XMS_ITS | Encounter Summary ---
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 Historical Provider Final Res ult * SCAN - LABS (12/06/2016 12:00 AM CDT) Narrative 12/06/2016 12:00 AM CDT Ordered by an unspecified provider. Historical Provider Final Res ult documented in this encounter Visit Diagnoses Not on filedocumented in this encounter Care Teams Apple Packing Header Relationship Specialty Start Date End Date Christian Merritt MD PCP - General Emergency Medicine 06/10/22 documented as of this encounter
--- OUTSIDE RECORDS SUMMARY | 2024-10-24 14:42 | XMS_ITS | Encounter Summary ---
Author Organization [facility] Care Team Providers Care Amusement Ride Operator Name Role Phone Christian Merritt MD Primary Care Provider [phone] Encounter Details Date Type Department Care Team (Latest Contact Info) Description 12/09/2016 Orders Only [facility] CLINCONV ProviderSerge MD [address] [place], [place] [id number] Social History Tobacco Use Types Packs/Day Years Used Date Smoking Tobacco: Never Assessed Comments Unknown Sex and Gender Information Value Date Recorded Sex Assigned at Not on file Legal Sex Female 8:06 PM MOVEMENT EDUCATION SPECIALIST Gender Identity Not on file Sexual Orientation Not on file documented as of this encounter Plan of Treatment Not on file documented as of this encounter Procedures Procedure Name Priority Date/Time Associated Diagnosis Comments SCAN - LABS 12/09/2016 12:00 AM CDT documented in this encounter Results * SCAN - LABS (12/09/2016 12:00 AM CDT) Narrative 12/09/2016 12:00 AM CDT Ordered by an unspecified provider. us Historical Provider Final Res ult documented in this encounter Visit Diagnoses Not on filedocumented in this encounter Care Teams Amusement Ride Operator Relationship Specialty Start Date End Date Christian Merritt MD PCP - General Emergency Medicine 06/10/22 documented as of this encounter
[2024-10-24] MEDS: diphenhydrAMINE HCl INJ 50 MG/ML VIAL IV PUSH (14:52)
[2024-10-24] MEDS: PROCHLORPERAZINE EDISYLATE 10 MG/2 ML VIAL IV PUSH (14:52)
[2024-10-24] MEDS: SODIUM CHLORIDE 0.9% IV 1,000 ML 999 ML IV CONT (14:52)
[2024-10-24 14:53] LABS: BEDSIDEPREGUCG Negative (Negative)
[2024-10-24 14:56] VITALS: BP 109/76; O2SAT 100
[2024-10-24] MEDS: KETOROLAC 15 MG/ML VIAL (*BKC) IV PUSH (14:59)
--- NOTE | 2024-10-24 14:59 | ED.GENADULT ---
HPI - General Adult General Chief complaint: Nausea/Vomiting/Diarrhea Stated complaint: nauseated Time Seen by Provider: 10/24/24 14:33 History of Present Illness HPI narrative: 34-year-old female present to the emergency department for evaluation nausea vomiting diarrhea and migraine headache. Patient states she has been having increased frequency of headaches over the last few months. Patient states that this headache has been going on for the last 3 days. Patient does report light sensitivity with nausea vomiting. Patient has been taking Tylenol for pain control without significant improvement. Related Data Home Medications ?Medication ?Instructions ?Recorded ?Confirmed ?Last Taken ?Type ferrous sulfate 325 mg (65 mg 325 mg PO BID 03/28/24 08/07/24 Unknown History iron) tablet,delayed release folic acid 1 mg tablet 1 mg feeding tube DAILY 03/28/24 08/07/24 Unknown History megestrol 20 mg tablet 20 mg feeding tube QAM 03/28/24 08/07/24 Unknown History multivitamin with folic acid 400 1 tablet PO QAM 03/28/24 08/07/24 Unknown History mcg tablet (Thera) thiamine HCl (vitamin B1) 100 mg 100 mg feeding tube DAILY 03/28/24 08/07/24 Unknown History tablet trazodone 50 mg tablet 50 mg feeding tube HS PRN insomnia 03/28/24 08/07/24 Unknown History vitamin B complex (Vitamins B 1 cap feeding tube QAM 03/28/24 08/07/24 Unknown History Complex capsule) lactose-reduced food with fiber See Rx Instructions .Route .COMPLEX 08/07/24 08/07/24 Unknown History 0.06 gram-1.5 kcal/mL oral liquid (Jevity 1.5 Chriss) Allergies Allergy/AdvReac Type Severity Reaction Status Date / Time latex Allergy Rash Verified 10/24/24 13:27 Review of Systems Review of Systems: All systems reviewed & are unremarkable except as noted in HPI and below PMFSH Past Medical History Medical History Adrenal insufficiency Depression with anxiety Avoidant/restrictive food intake disorder Cannabis abuse Elevated LFTs Mitral valve prolapse Surgical History Surgical History History of percutaneous endoscopic gastrostomy Family History Family History Mother Heart attack Mitral valve prolapse Grandparent Cancer Grandparent Mitral valve prolapse Social History Social History Social History: Surrogate medical decision maker: Jorge Luis Centeno, significant other. Code status: Full code. Smoking packs per day: 0.3 Smoking cigarettes per day: 6.0 Years smoked: 19 Smoking pack-years: 5.70 Smoking status: Current every day smoker Tobacco type: cigarettes Alcohol intake: current Drinks per week: 8 Alcohol use details: States she drinks 1 pint a week Substance use: former Substance use type: marijuana Other substance usage details: 1 pint of Rum/week; last intake 03/25/24 Last use: 10/31/23 Do You Feel Safe in your Home?: Yes Lack of Transportation: No Lack of Food: Never True Current Housing: I Have Housing Concerned About Future Housing: No Difficulty Paying Gas/Electric Bills: No Difficulty Paying for Meds: No Currently Unemployed: No Education: High School Diploma/GED Difficulty w/ Childcare or Family Care: No Living arrangements: with family Additional living arrangements comments: with 7 year old son and fianc? Occupation/Education: unemployed Spiritual care concerns: No Agree to blood products: Yes Exam Narrative: APPEARANCE: Well appearing, no pain, no distress, well-nourished. HEAD: normocephalic, atraumatic. EYES: PERRLA/EOMI, conjunctivae clear. NOSE: Normal no drainage EARS:TMS clear with good light reflex. THROAT: Pharynx clear, no exudate. NECK: Supple. No adenopathy, no masses. RESPIRATORY: Airway patent, respirations nonlabored. Clear to auscultation bilaterally, no rales, rhonchi, wheezing. CARDIOVASCULAR: Regular rate and rhythm without murmurs rubs or gallops. ABDOMINAL: Soft, nontender, nondistended, normal bowel sounds MUSCULOSKELETAL: Moves all extremities. Strength/ROM intact, No edema, No calf tenderness. NEURO: Alert. Cranial nerves II through XII intact. Grossly intact SKIN: Warm, dry. Normal Color Course Vital Signs Vital signs: Vital Signs Temperature 98.8 F 10/24/24 13:26 Pulse Rate 68 10/24/24 13:26 Respiratory Rate 16 10/24/24 13:26 Blood Pressure 100/77 10/24/24 13:26 Pulse Oximetry 96 10/24/24 13:26 Temperature 98.8 F 10/24/24 13:26 Pulse Rate 68 10/24/24 13:26 Respiratory Rate 16 10/24/24 13:26 Blood Pressure 93/71 L 10/24/24 16:16 Pulse Oximetry 100 10/24/24 16:16 Medical Decision Making MDM Narrative Medical decision making narrative: 34-year-old female presents emergency department for evaluation for nausea vomiting and migraine. Patient was treated with Compazine, Benadryl, Toradol, IV fluids and did feel improved after treatment. Patient test was negative patient was negative influenza RSV and for COVID. Patient was updated results of her workup and reports having close follow-up with her physicians. All questions concerns were addressed. Differential Diagnosis Differential Diagnosis: Nausea vomiting, diarrhea, viral etiology, migraine, headache Vital Signs Vital Signs: Vital Signs Temperature 98.8 F 10/24/24 13:26 Pulse Rate 68 10/24/24 13:26 Respiratory Rate 16 10/24/24 13:26 Blood Pressure 100/77 10/24/24 13:26 Pulse Oximetry 96 10/24/24 13:26 Temperature 98.8 F 10/24/24 13:26 Pulse Rate 68 10/24/24 13:26 Respiratory Rate 16 10/24/24 13:26 Blood Pressure 93/71 L 10/24/24 16:16 Pulse Oximetry 100 10/24/24 16:16 Lab Data Labs: Lab Results 10/24/24 10/24/24 Range/Units 14:45 14:51 POC Urine HCG, Qual Negative (Negative) Influenza A (RT-PCR) Negative (Negative) Influenza B (RT-PCR) Negative (Negative) RSV (RT-PCR) Negative (Negative) SARS-CoV-2 RNA (RT-PCR) Negative (Negative) Discharge Plan Discharge Clinical Impression: Chronic nausea, Headache Patient Disposition: Home, Self-Care Condition: Stable Instructions: Antibiotic Form, Clear Liquid Diet (ED), Acute Nausea and Vomiting (ED) Additional Instructions: Your home Zofran for nausea and vomiting. Clear liquid diet for the next 1-3 days. Have close follow-up with your primary care physician. Patient Language: Bolivian Prescriptions: No Action buprenorphine 7.5 mcg/hour patch weekly 1 patch transdermal Q7D 28 Days Qty: 4 0RF Rx Instructions: apply 1 patch to clean, dry, intact skin of the upper body. Remove, discard and replace every 7 days. Rotate site with each new placement. duloxetine 60 mg Capsule,Delayed Release(Dr/Ec) 60 mg PO QAM Qty: 30 0RF ondansetron 8 mg tablet,disintegrating 8 mg PO Q8H PRN (Reason: nausea and vomiting) Qty: 90 0RF trazodone 50 mg tablet 50 mg feeding tube HS PRN (Reason: insomnia) thiamine HCl (vitamin B1) 100 mg tablet 100 mg feeding tube DAILY folic acid 1 mg tablet 1 mg feeding tube DAILY ferrous sulfate 325 mg (65 mg iron) tablet,delayed release (DR/EC) 325 mg PO BID Rx Instructions: patient administers via feeding tube megestrol 20 mg tablet 20 mg feeding tube QAM vitamin B complex [Vitamins B Complex] Capsule 1 cap feeding tube QAM multivitamin with folic acid [Thera] 400 mcg tablet 1 tablet PO QAM Rx Instructions: pt administers via feeding tube Jevity 1.5 Chriss 0.06 gram-1.5 kcal/mL liquid See Rx Instructions .ROUTE .COMPLEX Rx Instructions: 75ml four times a day. prednisone 2.5 mg Tablet 2.5 mg PO BID Qty: 60 0RF potassium chloride 10 mEq capsule, extended release 10 meq feeding tube DAILY Qty: 60 0RF magnesium sulfate 100 mg capsule 100 mg PO BID Qty: 60 0RF metoclopramide HCl [Reglan] 10 mg tablet 10 mg PO Q6H Qty: 120 0RF Follow-up/Referrals: Mo Mitchell MD [Primary Care Provider] -
[2024-10-24 15:01] VITALS: BP 103/84; O2SAT 100
[2024-10-24 15:26] LABS: Influenza A QL RT-PCR Negative (Negative); Influenza B QL RT-PCR Negative (Negative); RSV RNA, RT-PCR Negative (Negative); SARS-CoV-2 RNA PCR Negative (Negative)
[2024-10-24 15:46] VITALS: BP 95/67; O2SAT 100
--- OUTSIDE RECORDS SUMMARY | 2024-10-24 16:08 | XMS_ITS | Referral Summary ---
Author Organization [facility] Address [address] [place] [address] Care Team Providers Care Microfilmer Name Role Phone Christian Merritt MD Primary Care Provider [phone] Allergies Active Allergy Reactions Criticality Noted Date [...] on file Legal Sex Female 8:06 PM KNOCKDOWN WORKER Gender Identity Not on file Sexual Orientation Not on file Last Filed Vital Signs Vital Sign Reading Time Taken Comments Blood Pressure 105/79 06/26/2023 9:30 PM KNOCKDOWN WORKER Pulse 84 06/26/2023 9:30 PM KNOCKDOWN WORKER Temperature 36.7 C (98 F) 06/26/2023 3:35 PM KNOCKDOWN WORKER Respiratory Rate 18 06/26/2023 3:35 PM KNOCKDOWN WORKER Oxygen Saturation 98% 06/26/2023 9:30 PM KNOCKDOWN WORKER Inhaled Oxygen Concentration - - Weight 38.6 kg (85 lb) 06/26/2023 3:35 PM KNOCKDOWN WORKER Height 154.9 cm (5' 1 ) 06/26/2023 3:35 PM KNOCKDOWN WORKER Body Mass Index 16.06 06/26/2023 3:35 PM KNOCKDOWN WORKER Plan of Treatment Not on file Procedures Procedure Name Priority Date/Time Associated Diagnosis Comments THINPREP TIS PAP REFLEX HPV MRNA E6/E7, CHLAMYDIA/N.GONORRH OEAE Routine 09/14/2016 12:56 PM KNOCKDOWN WORKER HEPATITIS C ANTIBODY Routine 09/14/2016 11:43 AM KNOCKDOWN WORKER from Last 3 Months or Most Recently Relevant to Health Maintenance Results * THINPREP TIS PAP REFLEX HPV mRNA E6/E7, CHLAMYDIA/N.GONORRHOEAE (09/14/2016 12:56 PM KNOCKDOWN WORKER) CLINICAL INFORMATION [facility] HISTORICAL RESULTS Comment: LMP: [facility] HISTORICAL RESULTS PREV. PAP: [facility] EC HISTORICAL RESULTS Comment:2011 PREV. BX: [facility] HISTORICAL RESULTS Comment:UNKNOWN SOURCE: [facility] HISTORICAL RESULTS Comment:Cervix, Endocervix STATEMENT OF ADEQUACY: [facility] HISTORICAL RESULTS Comment:Satisfactory for savana luation. Endocervical/transformation zone component present. INTERPRETATION/RES ULT: [facility] HISTORICAL RESULTS Comment:Negative for intraep ithelial lesion or malignancy. COMMENT: [facility] HISTORICAL RESULTS Comment:This Pap test has be en evaluated with computer assisted technology. LEAD CYTOGENETIC TECHNOLOGIST: [facility] HISTORICAL RESULTS Comment:YQ, CT(ASCP) CT scre ening location: [place] [address] [place] [address] C. trachomatis RNA NOT DETECTED NOT DETECTED [facility] HISTORICAL RESULTS N. gonorrhoeae RNA NOT DETECTED NOT DETECTED [facility] HISTORICAL RESULTS COMMENT [facility] HISTORICAL RESULTS Comment: This test was performed using the APTIMA COMBO2 Assay ([employer] The analytical performance characteristics of this assay, when used to test SurePath specimens have been determined by [employer]. 09/14/2016 12:5 6 PM KNOCKDOWN WORKER 09/20/2016 11:25 AM KNOCKDOWN WORKER Narrative [facility] HISTORICAL RESULTS - 09/20/2016 11:07 AM KNOCKDOWN WORKER 0 PERFORMING LAB: [place] [address] [facility] [address] Pelon Hand MD us Irene Spivey CNM LAB PATHOLOGY ORDERABLE S Final Result Performing Organization Address City/[facility] de Phone Number [facility] HISTORICAL RESULTS * Hepatitis C antibody (09/14/2016 11:43 AM KNOCKDOWN WORKER) Hep C Ab NON-REACTI VE NON-REACTI VE [facility] HISTORICAL RESULTS SIGNAL TO CUT-OFF 0.01 <1.00 [facility] HISTORICAL RESULTS 09/14/2016 11:4 3 AM KNOCKDOWN WORKER 09/18/2016 6:40 AM KNOCKDOWN WORKER Narrative [facility] HISTORICAL RESULTS - 09/18/2016 6:21 AM KNOCKDOWN WORKER 0; 0; 0; 0; 0; 0; 0; 0 FASTING:NO PERFORMING LAB: [place] [address] [phone] James Wu D.O., MPH us Irene Spivey CNM LAB MICROBIOLOGY - GENE RAL ORDERABLES Final Result Performing Organization Address City/[facility]/ZIP Co de Phone Number [facility] HISTORICAL RESULTS from Last 3 Months or Most Recently Relevant to Health Maintenance Insurance Advance Directives For more information, please contact: [phone] * Full Code (Latest Code Status on File) Date Activated Date Inactivated Comments 06/10/2022 11:46 PM 06/12/2022 5:21 PM Care Teams Microfilmer Relationship Specialty Start Date End Date Christian Merritt MD PCP - General Emergency Medicine 06/10/22
--- OUTSIDE RECORDS SUMMARY | 2024-10-24 16:08 | XMS_ITS | Encounter Summary ---
Author Organization [facility] Facility Care Team Providers Care Knife Setter Grinder Machine Name Role Phone Christian Merritt MD Primary Care Provider [phone] Encounter Details Date Type Department Care Team (Latest Contact Info) Description 12/09/2016 Orders Only [facility] CLINCONV ProviderSerge MD [address] [place], [place] [id number] Social History Tobacco Use Types Packs/Day Years Used Date Smoking Tobacco: Never Assessed Comments Unknown Sex and Gender Information Value Date Recorded Sex Assigned at Not on file Legal Sex Female 8:06 PM CROSS TIE CUTTER Gender Identity Not on file Sexual Orientation [...] on filedocumented in this encounter Care Teams Knife Setter Grinder Machine Relationship Specialty Start Date End Date Christian Merritt MD PCP - General Emergency Medicine 06/10/22 documented as of this encounter
--- OUTSIDE RECORDS SUMMARY | 2024-10-24 16:08 | XMS_ITS | Clinical Summary ---
Author Organization [facility] Address [address] [place] [address] Care Team Providers Care Railroad Car Painter Name Role Phone Christian Merritt MD Primary Care Provider [phone] Allergies Active Allergy Reactions Criticality Noted Date [...] on file Legal Sex Female 8:06 PM PRE BILLING CLINICIAN Gender Identity Not on file Sexual Orientation Not on file Obstetrics History Last Filed Vital Signs Vital Sign Reading Time Taken Comments Blood Pressure 105/79 06/26/2023 9:30 PM PRE BILLING CLINICIAN Pulse 84 06/26/2023 9:30 PM PRE BILLING CLINICIAN Temperature 36.7 C (98 F) 06/26/2023 3:35 PM PRE BILLING CLINICIAN Respiratory Rate 18 06/26/2023 3:35 PM PRE BILLING CLINICIAN Oxygen Saturation 98% 06/26/2023 9:30 PM PRE BILLING CLINICIAN Inhaled Oxygen Concentration - - Weight 38.6 kg (85 lb) 06/26/2023 3:35 PM PRE BILLING CLINICIAN Height 154.9 cm (5' 1 ) 06/26/2023 3:35 PM PRE BILLING CLINICIAN Body Mass Index 16.06 06/26/2023 3:35 PM PRE BILLING CLINICIAN Plan of Treatment Health Maintenance Due Date [...] E6/E7, CHLAMYDIA/N.GONORRH OEAE Routine 09/14/2016 12:56 PM PRE BILLING CLINICIAN HEPATITIS C ANTIBODY Routine 09/14/2016 11:43 AM PRE BILLING CLINICIAN from Last 3 Months or Most Recently Relevant to Health Maintenance Results * THINPREP TIS PAP REFLEX HPV mRNA E6/E7, CHLAMYDIA/N.GONORRHOEAE (09/14/2016 12:56 PM PRE BILLING CLINICIAN) CLINICAL INFORMATION [facility] HISTORICAL RESULTS Comment: LMP: [facility] EC HISTORICAL RESULTS PREV. PAP: [facility] HISTORICAL RESULTS Comment:2011 PREV. BX: [facility] EC HISTORICAL RESULTS Comment:UNKNOWN SOURCE: [facility] HISTORICAL RESULTS Comment:Cervix, Endocervix STATEMENT OF ADEQUACY: [facility] EC HISTORICAL RESULTS Comment:Satisfactory for savana luation. Endocervical/transformation zone component present. INTERPRETATION/RES ULT: [facility] EC HISTORICAL RESULTS Comment:Negative for intraep ithelial lesion or malignancy. COMMENT: [facility] HISTORICAL RESULTS Comment:This Pap test has be en evaluated with computer assisted technology. GORE CUTTER: [facility] HISTORICAL RESULTS Comment:YQ, CT(ASCP) CT scre ening location: [place] [address] [place] [address] C. trachomatis RNA NOT DETECTED NOT DETECTED [facility] HISTORICAL RESULTS N. gonorrhoeae RNA NOT DETECTED NOT DETECTED [facility] HISTORICAL RESULTS COMMENT [facility] HISTORICAL RESULTS Comment: This test was performed using the APTIMA COMBO2 Assay ([employer] The analytical performance characteristics of this assay, when used to test SurePath specimens have been determined by [employer]. 09/14/2016 12:5 6 PM PRE BILLING CLINICIAN 09/20/2016 11:25 AM PRE BILLING CLINICIAN Narrative [facility] HISTORICAL RESULTS - 09/20/2016 11:07 AM PRE BILLING CLINICIAN 0 PERFORMING LAB: [place] [address] [facility] [phone] Pelon Hand MD Irene Spivey [facility] LAB PATHOLOGY ORDERABLE S Final Result [facility] HISTORICAL RESULTS * Hepatitis C antibody (09/14/2016 11:43 AM PRE BILLING CLINICIAN) Pathologist [facility] Hep C Ab NON-REACTI VE NON-REACTI VE [facility] HISTORICAL RESULTS SIGNAL TO CUT-OFF 0.01 <1.00 [facility] HISTORICAL RESULTS 09/14/2016 11:4 3 AM PRE BILLING CLINICIAN 09/18/2016 6:40 AM PRE BILLING CLINICIAN Narrative [facility] HISTORICAL RESULTS - 09/18/2016 6:21 AM PRE BILLING CLINICIAN 0; 0; 0; 0; 0; 0; 0; 0 FASTING:NO PERFORMING LAB: [place], [facility] [address] [place] [address] James Wu D.O., MPH us Irene Spivey CNM LAB MICROBIOLOGY - GENE RAL ORDERABLES Final Result [facility] HISTORICAL RESULTS from Last 3 Months or Most Recently Relevant to Health Maintenance Insurance Member Subscriber Plan / Payer (Ef fective 2018-Present) Name:Ester León Relation to Subscriber:Self Name:Ester León Payer ID:[id number] (NAIC) Type:MEDICAID RISK OTHER Address: [place] [id number] [facility] Advance Directives For more information, please contact: [phone] * Full Code (Latest Code Status on File) Date Activated Date Inactivated Comments 06/10/2022 11:46 PM 06/12/2022 5:21 PM Care Teams Railroad Car Painter Relationship Specialty Start Date End Date Christian Merritt MD PCP - General Emergency Medicine 06/10/22
--- OUTSIDE RECORDS SUMMARY | 2024-10-24 16:08 | XMS_ITS | Encounter Summary ---
Author Organization [facility] Facility Care Team Providers Care Molded Goods Inspector Trimmer Name Role Phone Christian Merritt MD Primary Care Provider [phone] Encounter Details Date Type Department Care Team (Latest Contact Info) Description 01/05/2017 Orders Only [facility] CLINCONV ProviderSerge MD [address] [place], [place] [id number] Social History Tobacco Use Types Packs/Day Years Used Date Smoking Tobacco: Never Assessed Comments Unknown Sex and Gender Information Value Date Recorded Sex Assigned at Not on file Legal Sex Female 8:06 PM THERAPY SITE COORDINATOR Gender Identity Not on file Sexual Orientation [...] on filedocumented in this encounter Care Teams Molded Goods Inspector Trimmer Relationship Specialty Start Date End Date Christian Merritt MD PCP - General Emergency Medicine 06/10/22 documented as of this encounter
--- OUTSIDE RECORDS SUMMARY | 2024-10-24 16:08 | XMS_ITS | Encounter Summary ---
Author Organization [facility] Facility Care Team Providers Care Director Auto Name Role Phone Christian Merritt MD Primary Care Provider [phone] Encounter Details Date Type Department Care Team (Latest Contact Info) Description 12/06/2016 Orders Only [facility] CLINCONV ProviderSerge MD [address] [place], [place] [id number] Social History Tobacco Use Types Packs/Day Years Used Date Smoking Tobacco: Never Assessed Comments Unknown Sex and Gender Information Value Date Recorded Sex Assigned at Not on file Legal Sex Female 8:06 PM CONTACT CENTER TEAM LEAD Gender Identity Not on file Sexual Orientation [...] on filedocumented in this encounter Care Teams Director Auto Relationship Specialty Start Date End Date Christian Merritt MD PCP - General Emergency Medicine 06/10/22 documented as of this encounter
[2024-10-24 16:16] VITALS: BP 93/71; O2SAT 100
== END 2024-10-24 16:39 | disposition home or self-care (01) ==
PROVIDERS: Emergency Provider Emergency Medicine; PCP Internal Medicine
DX: R51.9 Headache, unspecified (principal); R11.0 Nausea; Z20.822 Contact with and (suspected) exposure to COVID-19; F17.210 Nicotine dependence, cigarettes, uncomplicated; F32.A Depression, unspecified; F41.9 Anxiety disorder, unspecified
CPT/HCPCS: 81025; 87637; 96361; 96374; 96375; 99284; J0780; J1200; J1885; J7030

== ENCOUNTER 2024-10-30 17:25 | Emergency (ER) | payer OTHER, SELFPAY ==
[2024-10-30] VITALS (19 sets, daily range): BP systolic 96–137; BP diastolic 56–106; PULSE 98–120; RESP 13–38; TEMP 36.2–36.9; O2SAT 92–100
--- NOTE | ~2024-10-30 | XR_ITS ---
CHEST RADIOGRAPH CLINICAL HISTORY: UNRESPONSIVE, S/P CPR . COMPARISON: 02/05/2024 TECHNIQUE: Single portable view of the chest. FINDINGS The cardiomediastinal silhouette is unremarkable. Increased opacification within the left mid to lower lung field for which early infiltrate is suspect ed. The remainder of the lungs are clear. Possible nondisplaced eighth, ninth and 10th right rib fractures are present. IMPRESSION: Early infiltrate suspected within the left mid to lower lung field. Possible nondisplaced right eighth, ninth and 10th rib fractures. Reviewed, dictated and finalized at location A.
--- NOTE | ~2024-10-30 | CT_ITS ---
CLINICAL INDICATION: Nausea vomiting and diarrhea COMPARISON: 08/07/2024. TECHNIQUE: Multiple contiguous axial images of the abdomen and pelvis were performed without the admi nistration of intravenous contrast The dose-length product (DLP) was 194.67 mGy-cm. Automated exposure control and iterative reconstruction technique were employed. FINDINGS/OBSERVATIONS: Visualized lower thorax: Hazy opacification of the left lower lobe for which an early infiltrate (possible aspiration) is susp ected. The right lung base is clear. The heart is of normal size, without pericardial effusion. Small hiatal hernia is present. Liver: The liver demonstrates homogeneously decreased attenuation, consistent with fatty infiltration and is not enlarged. Gallbladder and biliary system: The gallbladder is only minimally distended, and otherwise unremarkable. Pancreas: Limited evaluation of the pancreas secondary to the lack of intravenous contrast. Spleen: The spleen demonstrates homogeneous attenuation and is not enlarged. Kidneys: The bilateral kidneys are unremarkable, without hydronephrosis or renal calculi. Adrenal glands: Unremarkable. Gastrointestinal tract: Percutaneous gastrostomy within the stomach. Edematous mural thickening within the entirety of the colon, possibly secondary to hypotension. Vasculature: Unremarkable. Lymph nodes: Limited evaluation without intravenous contrast. Pelvic structures: The bladder is minimally distended, and otherwise unremarkable. The uterus is anteverted and anteflexed, and contains the Anderson balloon as well as the Anderson catheter . Body wall and musculoskeletal: No significant degenerative disease within the lower thoracic or lumbosacral spine. IMPRESSION: Findings within the left lower lobe of the lung for which either aspiration/early infiltrate versus p ulmonary contusion is suspected. No acute displaced rib fractures are noted. Edematous mural thickening within the entirety of the colon, for which shock bowel is suspected. Additional findings within the uterus for which inadvertent placement of the Anderson catheter is suspec margy (findings given to Uday Kaminski RN at 9:55 PM on 10/30/2024). Reviewed, dictated and finalized at location A. IMPRESSION: Findings within the left lower lobe of the lung for which either aspiration/ear ly infiltrate versus pulmonary contusion is suspected. No acute displaced rib fractures are noted. Edematous mural thickening within the entirety of the colon, for which shock nga wel is suspected. Additional findings within the uterus for which inadvertent placement of the Fo leonard catheter is suspected (findings given to Yamilex figure skater at 9:55 PM on 10/30).
--- OUTSIDE RECORDS SUMMARY | 2024-10-30 17:29 | XMS_ITS | Encounter Summary ---
Author Organization [facility] Facility Care Team Providers Care Veterinary Poultry Inspector Name Role Phone Christian Merritt MD Primary Care Provider [phone] Encounter Details Date Type Department Care Team (Latest Contact Info) Description 12/09/2016 Orders Only [facility] CLINCONV ProviderSerge MD [address] [place], [place] [id number] Social History Tobacco Use Types Packs/Day Years Used Date Smoking Tobacco: Never Assessed Comments Unknown Sex and Gender Information Value Date Recorded Sex Assigned at Not on file Legal Sex Female 8:06 PM HARDWARE SUPPLIES SALES REPRESENTATIVE Gender Identity Not on file Sexual Orientation [...] on filedocumented in this encounter Care Teams Veterinary Poultry Inspector Relationship Specialty Start Date End Date Christian Merritt MD PCP - General Emergency Medicine 06/10/22 documented as of this encounter
--- OUTSIDE RECORDS SUMMARY | 2024-10-30 17:29 | XMS_ITS | Referral Summary ---
Author Organization [facility] Address [address] [place] [address] Care Team Providers Care Sales Team Recruiter Name Role Phone Christian Merritt MD Primary Care Provider [phone] Allergies Active Allergy Reactions Criticality Noted Date [...] on file Legal Sex Female 8:06 PM DRIVERS' CASH CLERK Gender Identity Not on file Sexual Orientation Not on file Last Filed Vital Signs Vital Sign Reading Time Taken Comments Blood Pressure 105/79 06/26/2023 9:30 PM DRIVERS' CASH CLERK Pulse 84 06/26/2023 9:30 PM DRIVERS' CASH CLERK Temperature 36.7 C (98 F) 06/26/2023 3:35 PM DRIVERS' CASH CLERK Respiratory Rate 18 06/26/2023 3:35 PM DRIVERS' CASH CLERK Oxygen Saturation 98% 06/26/2023 9:30 PM DRIVERS' CASH CLERK Inhaled Oxygen Concentration - - Weight 38.6 kg (85 lb) 06/26/2023 3:35 PM DRIVERS' CASH CLERK Height 154.9 cm (5' 1 ) 06/26/2023 3:35 PM DRIVERS' CASH CLERK Body Mass Index 16.06 06/26/2023 3:35 PM DRIVERS' CASH CLERK Plan of Treatment Not on file Procedures Procedure Name Priority Date/Time Associated Diagnosis Comments THINPREP TIS PAP REFLEX HPV MRNA E6/E7, CHLAMYDIA/N.GONORRH OEAE Routine 09/14/2016 12:56 PM DRIVERS' CASH CLERK HEPATITIS C ANTIBODY Routine 09/14/2016 11:43 AM DRIVERS' CASH CLERK from Last 3 Months or Most Recently Relevant to Health Maintenance Results * THINPREP TIS PAP REFLEX HPV mRNA E6/E7, CHLAMYDIA/N.GONORRHOEAE (09/14/2016 12:56 PM DRIVERS' CASH CLERK) CLINICAL INFORMATION [facility] HISTORICAL RESULTS Comment: LMP: [facility] HISTORICAL RESULTS PREV. PAP: [facility] HISTORICAL RESULTS Comment:2011 PREV. BX: [facility] HISTORICAL RESULTS Comment:UNKNOWN SOURCE: [facility] HISTORICAL RESULTS Comment:Cervix, Endocervix STATEMENT OF ADEQUACY: [facility] HISTORICAL RESULTS Comment:Satisfactory for savana luation. Endocervical/transformation zone component present. INTERPRETATION/RES ULT: [facility] HISTORICAL RESULTS Comment:Negative for intraep ithelial lesion or malignancy. COMMENT: [facility] HISTORICAL RESULTS Comment:This Pap test has be en evaluated with computer assisted technology. DROP FORGER HELPER: [facility] HISTORICAL RESULTS Comment:YQ, CT(ASCP) CT scre ening location: [place] [address] [place] [address] C. trachomatis RNA NOT DETECTED NOT DETECTED [facility] HISTORICAL RESULTS N. gonorrhoeae RNA NOT DETECTED NOT DETECTED [facility] HISTORICAL RESULTS COMMENT [facility] HISTORICAL RESULTS Comment: This test was performed using the APTIMA COMBO2 Assay ([employer] The analytical performance characteristics of this assay, when used to test SurePath specimens have been determined by [employer]. 09/14/2016 12:5 6 PM DRIVERS' CASH CLERK 09/20/2016 11:25 AM DRIVERS' CASH CLERK Narrative [facility] HISTORICAL RESULTS - 09/20/2016 11:07 AM DRIVERS' CASH CLERK 0 PERFORMING LAB: [place] [address] [facility] [address] Pelon Hand MD us Irene Spivey CNM LAB PATHOLOGY ORDERABLE S Final Result Performing Organization Address City/[facility] de Phone Number [facility] HISTORICAL RESULTS * Hepatitis C antibody (09/14/2016 11:43 AM DRIVERS' CASH CLERK) Hep C Ab NON-REACTI VE NON-REACTI VE [facility] HISTORICAL RESULTS SIGNAL TO CUT-OFF 0.01 <1.00 [facility] HISTORICAL RESULTS 09/14/2016 11:4 3 AM DRIVERS' CASH CLERK 09/18/2016 6:40 AM DRIVERS' CASH CLERK Narrative [facility] HISTORICAL RESULTS - 09/18/2016 6:21 AM DRIVERS' CASH CLERK 0; 0; 0; 0; 0; 0; 0; 0 FASTING:NO PERFORMING LAB: [place] [address] [address] James Wu D.O., MPH us Irene Spivey CNM LAB MICROBIOLOGY - GENE RAL ORDERABLES Final Result Performing Organization Address City/[facility]/ZIP Co de Phone Number [facility] HISTORICAL RESULTS from Last 3 Months or Most Recently Relevant to Health Maintenance Insurance Advance Directives For more information, please contact: [phone] * Full Code (Latest Code Status on File) Date Activated Date Inactivated Comments 06/10/2022 11:46 PM 06/12/2022 5:21 PM Care Teams Sales Team Recruiter Relationship Specialty Start Date End Date Christian Merritt MD PCP - General Emergency Medicine 06/10/22
--- OUTSIDE RECORDS SUMMARY | 2024-10-30 17:29 | XMS_ITS | Clinical Summary ---
Author Organization [facility] Address [address] [place] [address] Care Team Providers Care Lower In Supervisor Name Role Phone Christian Merritt MD Primary Care Provider [phone] Allergies Active Allergy Reactions Criticality Noted Date [...] on file Legal Sex Female 8:06 PM CORRUGATED SHEET MATERIAL SHEETER Gender Identity Not on file Sexual Orientation Not on file Obstetrics History Last Filed Vital Signs Vital Sign Reading Time Taken Comments Blood Pressure 105/79 06/26/2023 9:30 PM CORRUGATED SHEET MATERIAL SHEETER Pulse 84 06/26/2023 9:30 PM CORRUGATED SHEET MATERIAL SHEETER Temperature 36.7 C (98 F) 06/26/2023 3:35 PM CORRUGATED SHEET MATERIAL SHEETER Respiratory Rate 18 06/26/2023 3:35 PM CORRUGATED SHEET MATERIAL SHEETER Oxygen Saturation 98% 06/26/2023 9:30 PM CORRUGATED SHEET MATERIAL SHEETER Inhaled Oxygen Concentration - - Weight 38.6 kg (85 lb) 06/26/2023 3:35 PM CORRUGATED SHEET MATERIAL SHEETER Height 154.9 cm (5' 1 ) 06/26/2023 3:35 PM CORRUGATED SHEET MATERIAL SHEETER Body Mass Index 16.06 06/26/2023 3:35 PM CORRUGATED SHEET MATERIAL SHEETER Plan of Treatment Health Maintenance Due Date [...] E6/E7, CHLAMYDIA/N.GONORRH OEAE Routine 09/14/2016 12:56 PM CORRUGATED SHEET MATERIAL SHEETER HEPATITIS C ANTIBODY Routine 09/14/2016 11:43 AM CORRUGATED SHEET MATERIAL SHEETER from Last 3 Months or Most Recently Relevant to Health Maintenance Results * THINPREP TIS PAP REFLEX HPV mRNA E6/E7, CHLAMYDIA/N.GONORRHOEAE (09/14/2016 12:56 PM CORRUGATED SHEET MATERIAL SHEETER) CLINICAL INFORMATION [facility] HISTORICAL RESULTS Comment: LMP: [facility] EC HISTORICAL RESULTS PREV. PAP: [facility] HISTORICAL RESULTS Comment:2011 PREV. BX: [facility] HISTORICAL RESULTS Comment:UNKNOWN SOURCE: [facility] HISTORICAL RESULTS Comment:Cervix, Endocervix STATEMENT OF ADEQUACY: [facility] HISTORICAL RESULTS Comment:Satisfactory for savana luation. Endocervical/transformation zone component present. INTERPRETATION/RES ULT: [facility] HISTORICAL RESULTS Comment:Negative for intraep ithelial lesion or malignancy. COMMENT: [facility] HISTORICAL RESULTS Comment:This Pap test has be en evaluated with computer assisted technology. FIRE FIGHTER: [facility] HISTORICAL RESULTS Comment:YQ, CT(ASCP) CT scre ening location: [place] [address] [place] [address] C. trachomatis RNA NOT DETECTED NOT DETECTED [facility] HISTORICAL RESULTS N. gonorrhoeae RNA NOT DETECTED NOT DETECTED [facility] HISTORICAL RESULTS COMMENT [facility] HISTORICAL RESULTS Comment: This test was performed using the APTIMA COMBO2 Assay ([employer] The analytical performance characteristics of this assay, when used to test SurePath specimens have been determined by [employer]. 09/14/2016 12:5 6 PM CORRUGATED SHEET MATERIAL SHEETER 09/20/2016 11:25 AM CORRUGATED SHEET MATERIAL SHEETER Narrative [facility] HISTORICAL RESULTS - 09/20/2016 11:07 AM CORRUGATED SHEET MATERIAL SHEETER 0 PERFORMING LAB: [place] [address] [facility] [address] Pelon Hand MD Irene Spivey [facility] LAB PATHOLOGY ORDERABLE S Final Result [facility] HISTORICAL RESULTS * Hepatitis C antibody (09/14/2016 11:43 AM CORRUGATED SHEET MATERIAL SHEETER) Pathologist [facility] Hep C Ab NON-REACTI VE NON-REACTI VE [facility] HISTORICAL RESULTS SIGNAL TO CUT-OFF 0.01 <1.00 [facility] HISTORICAL RESULTS 09/14/2016 11:4 3 AM CORRUGATED SHEET MATERIAL SHEETER 09/18/2016 6:40 AM CORRUGATED SHEET MATERIAL SHEETER Narrative [facility] HISTORICAL RESULTS - 09/18/2016 6:21 AM CORRUGATED SHEET MATERIAL SHEETER 0; 0; 0; 0; 0; 0; 0; 0 FASTING:NO PERFORMING LAB: [place], [facility] [address] [place] [address] James Wu D.O., MPH us Irene Spivey CNM LAB MICROBIOLOGY - GENE RAL ORDERABLES Final Result [facility] HISTORICAL RESULTS from Last 3 Months or Most Recently Relevant to Health Maintenance Insurance Member Subscriber Plan / Payer (Ef fective 2018-Present) Name:Ester León Relation to Subscriber:Self Name:Ester León Payer ID:[id number] (NAIC) Type:MEDICAID RISK OTHER Address: [place] [id number] [facility] Advance Directives For more information, please contact: [phone] * Full Code (Latest Code Status on File) Date Activated Date Inactivated Comments 06/10/2022 11:46 PM 06/12/2022 5:21 PM Care Teams Lower In Supervisor Relationship Specialty Start Date End Date Christian Merritt MD PCP - General Emergency Medicine 06/10/22
--- OUTSIDE RECORDS SUMMARY | 2024-10-30 17:29 | XMS_ITS | Patient Health Record ---
Author Organization [facility] Address [address] [place] [address] Care Team Providers Care Supervisor Agricultural Education Name Role Phone Mo Mitchell Primary Care Provider Aj Larry Unavailable [phone] Marilu Mora Unavailable [phone] Allergies Allergen (clinical drug ingredient) Drug/Non Drug [...] Eating disorder, uns pecified (F50.9) Referral Organization [facility] Referring Provider First Name Mo Referring Provider Last Name Paula Referring Provider Speciality Internal M edicine Referred Provider Specialty Psychiatry s ervice General Notes BRITTANIE Steel Stephanie N 02/10/2024 09:48:12 AM >[facility] does not accept Medicaid.Damián RN, Stephanie N 02/10/2024 09:48:35 AM > [facility] does not accept Medicaid.Damián RN, Stephanie N 02/10/2024 09:51:40 AM > [facility] does not accept medicaid.Damián RN, Stephanie N 02/10/2024 10:13:09 AM > [facility] in [place] offers intensive outpatient and partial hospitalization programs. Distance of approximately 2.5 hours [address] distance for pt.Damián RN, Stephanie N 02/20/2024 10:06:04 AM >Health Navigator, Eboni Nath, located the following programs in the [facility] that accept Zhao:, 1. [facility] - [place], [place] IP, PHP, IOP, OP IP/PHP/IOP/OP- adults, all genders, RTC- adults, female-identifying. (located in [place], [place] near [place]): [phone]., 2. [facility] [place] PHP, IOP, OP Adults, adolescents, all genders - phone [phone], Reviewed [facility] information. It is a general [facility] with an eating disorder [...] 1 Unsteady gait (R26.8 1) Referral Organization [facility] Referring Provider First Name Mo Referring Provider Last Name Paula Referring Provider Speciality Internal M edicine Referred Provider Specialty Physical The rapist General Notes BRITTANIE Patton, Tory Manzano 05/11/2024 09:02:12 AM > Referral to [facility] PT. letter to pt. Clinical Notes [facility] Physical Therap y, [address] [facility] [address], , Referral Priority Routine Medications Medication SIG [...] W/U Status Risk Notes Problem Tobacco user (570487574) Nicotine dependence, unspecified, uncomplicated (F17.200) Active confirmed Problem Eating disorder (71856736) Eating disorder, unspecified (F50.9) Active confirmed Problem Peripheral neuropathy (696523659) Peripheral neuropathy (G62.9) Active confirmed Problem Unsteady gait (77374973) Unsteady gait (R26.81) Active confirmed Problem Deficiency of macronutrients (disorder) (535858075) Protein-calorie malnutrition, unspecified severity (E46) Active confirmed Vital Signs Heart Rate 98 /min 10/01/2024 Temperature 97.2 degrees Fahrenheit 03/20/2024 Respiratory Rate 16 /min 10/01/2024 Oximetry 98 % 10/01/2024 Blood pressure diastolic 80 mm Hg 10/01/2024 Height 61 in 10/01/2024 Blood pressure systolic 98 mm Hg 10/01/2024 Weight 89.8 lbs 10/01/2024 BMI 16.97 kg/m2 10/01/2024 Encounters Encounter Location Date Provider Diagnosis [address] [address] 11/14/2023 Mo Mitchell Neuropathic pain M79.2 ; Muscle weakness M62.81 ; Protein-calorie malnutrition, unspecified severity E46 ; Hypokalemia E87.6 and Nicotine dependence, unspecified, uncomplicated F17.[address] [address] 11/30/2023 Mo Mitchell Protein-calorie malnutrition, unspecified severity E46 and Peripheral neuropathy G62.[address] [address] 01/02/2024 Mo Mitchell Protein-calorie malnutrition, unspecified severity E46 ; Peripheral neuropathy G62.9 ; Nutritional counseling Z71.3 ; Patient underweight R63.6 ; Non-tobacco user Z78.9 and Opioid use F11.[address] [address] 02/13/2024 Mo Mitchell Peripheral neuropath y G62.9 ; Protein-calorie malnutrition, unspecified severity E46 ; Patient underweight R63.6 ; Nutritional counseling Z71.3 ; Non-tobacco user Z78.9 and Anxiety F41.[address] [address] 03/20/2024 Mo Mitchell Peripheral neuropath y G62.9 ; Eating disorder, unspecified F50.9 ; Unsteady gait R26.81 ; Protein-calorie malnutrition, unspecified severity E46 and Periodontal disease K05.[address] [address] 03/20/2024 Marilu Mora [address] [address] 10/01/2024 Mo Mitchell Protein-calorie malnutrition, unspecified severity E46 ; Peripheral neuropathy G62.9 ; Eating disorder, unspecified F50.9 and Nicotine dependence, unspecified, uncomplicated F17.[address] [place] [place] [address] 11/25/2023 Mo Mitchell Neuropathic pain M79.2 [facility] [address] [place] [address] 12/05/2023 Mo Mitchell Neuropathic pain M79.2 [facility] [address] [place] [address] 12/15/2023 Mo Mitchell Neuropathic pain M79.[address] [place] [address] 12/26/2023 Mo Mitchell Neuropathic pain M79.[address] [place] [address] 01/11/2024 Mo Mitchell Peripheral neuropath y G62.9 [facility] [address] [place] [address] 01/18/2024 Mo Mitchell Peripheral neuropath y G62.[address] [place] [address] 01/25/2024 Mo Mitchell Peripheral neuropath y G62.9 [facility] [address] [place] [address] 02/09/2024 Mo Mitchell [address] [place] [address] 02/20/2024 Mo Mitchell [address] [place] [address] 02/08/2024 Mo Mitchell Peripheral neuropath y G62.9 and Eating disorder, unspecified F50.[address] [place] [address] 02/08/2024 Mo Mitchell [address] [place] [address] 02/09/2024 Mo Mitchell Eating disorder, unspecified F50.9 and Peripheral neuropathy G62.[address] [address] 02/20/2024 Mo Mitchell Peripheral neuropath y G62.[address] [address] 02/29/2024 Aj Larry Peripheral neuropath y G62.[address] [address] 03/01/2024 Mo Mitchell [address] [address] 03/19/[address] [address] 04/20/2024 Mo Mitchell [address] [address] 06/13/[address] [address] 06/14/2024 Mo Mitchell Eating disorder, unspecified F50.[address] [address] 06/18/2024 Mo Mitchell [address] [address] 06/27/2024 Mo Mitchell [address] [address] 07/27/2024 Mo Mitchell [address] [address] 07/30/2024 Mo Mitchell [address] [address] 09/25/2024 Mo Mitchell [address] [address] 10/15/2024 Mo Mitchell Eating disorder, unspecified F50.9 [...] Coverage Start Date Coverage End Date [employer] [address] [phone] [id number] Ester León Self - patient is the insured 4 Medical (General) History Surgical History Surgery Date(Month/Year) peg tube 10/2023 child 2016 Hospitalization History Reason Date(Month/Year) [facility]. infection 07/2024 [facility] 02/04/17
--- OUTSIDE RECORDS SUMMARY | 2024-10-30 17:29 | XMS_ITS ---
Author Organization [facility] Address [address] [place] [address] Care Team Providers Care Diabetes Physician Name Role Phone Mo Mitchell Primary Care [...] Female Encounters Encounter Location Date Provider Diagnosis [address] [address] 10/15/2024 Mo Mitchell Eating disorder, unspecified F50.9 [...] Notes * Ester LEÓNDOB:1990 (34 yo F)Acc No.[id number]:10/15/2024 Patient: Ester JEONG :1990 A ge:34 Y S ex:Female Address:[address] [place], [address] * Refills Refill Megestrol Acetate Tablet, 20 MG, Orally, 60 Tablet, 1 tablet, Twice a day, 30 days, Refills=2 Refill Acetaminophen Tablet, 500 MG, Orally, 120, two tablets as needed for pain (maximum of 6 tablets in 24 hours), every 6 hrs, Refills=5 * true * Date: Generated for Edinson miller/Gabriella/Carleen on: 0 10/30/2024 05:29 PM CDT
--- OUTSIDE RECORDS SUMMARY | 2024-10-30 17:29 | XMS_ITS ---
Author Organization [facility] Address [address] [place] [address] Care Team Providers Care Suspension Cord Tier Name Role Phone Mo Mitchell Primary Care [...] 10/01/2024 Encounters Encounter Location Date Provider Diagnosis [address] [address] 10/01/2024 Mo Mitchell Protein-calorie malnutrition, unspecified severity [...] Notes * Ester LEÓNDOB:1990 (34 yo F)Acc No.[id number]:10/01/2024 Progress Notes Patient: Ester JEONG Provider: Ramin Mitchell :1990 A ge:34 Y S ex:Female Date:10/01/2024 Address:[address] [place] [address], [facility] Subjective: * Chief Complaints: * L ast seen 03/20/24 * HPI: I nterim History: F/U MALNUTRITION. WAS IN [facility]. FOR UTI ABOUT 6 WEEKS [...] I nterpretation M inimal Depression S creening: [place] Suicide Severity Rating Scale (LF) D o [...] 2016 * Hospitalization/Major Diagno stic Procedure: A [facility] 02/04/[facility]. infection 07/2024 * Family History: [...] Procedure Codes: 3 008F BODY MASS INDEX [id number] MEDICAL NUTRITION, INDIV, [id number] BEHAV CHNG SMOKING 3-10 MIN * Preventive [...] 10/01/2024 Generated for Edinson miller/Gabriella/Carleen on: 0 10/30/2024 05:29 PM CDT History and Physical Notes * [...] Total Score: 3 Interpretation: Minimal Depression Screening [place] Suicide Sev erity Rating Scale (LF) Do [...]
--- OUTSIDE RECORDS SUMMARY | 2024-10-30 17:29 | XMS_ITS ---
Author Organization [facility] Address [address] [place] [address] Care Team Providers Care Molding Press Operator Name Role Phone Mo Mitchell Primary Care Provider [phone] REASON FOR VISIT New Refill Request Social History Sex Assigned At : Social History Observation Description Sex Assigned At Female Encounters Encounter Location Date Provider Diagnosis [address] [place] [address] 09/25/2024 Mo Mitchell Plan Of Treatment No Information Progress Notes * Ester LEÓNDOB:1990 (34 yo F)Acc No.[id number]:09/25/2024 Patient: Ester JEONG :1990 A ge:34 Y S ex:Female Address:[address] [facility], [place], [address] * true * Date: Generated for Edinson miller/Gabriella/eTransmitting on: 0 10/30/2024 05:29 PM CDT
--- OUTSIDE RECORDS SUMMARY | 2024-10-30 17:29 | XMS_ITS | Encounter Summary ---
Author Organization [facility] Care Team Providers Care Vegetable Cook Name Role Phone Christian Merritt MD Primary Care Provider [phone] Encounter Details Date Type Department Care Team (Latest Contact Info) Description 01/05/2017 Orders Only [facility] CLINCONV ProviderSerge MD [address] [place], [place] [id number] Social History Tobacco Use Types Packs/Day Years Used Date Smoking Tobacco: Never Assessed Comments Unknown Sex and Gender Information Value Date Recorded Sex Assigned at Not on file Legal Sex Female 8:06 PM ACCESS LEAD Gender Identity Not on file Sexual [...] on filedocumented in this encounter Care Teams Vegetable Cook Relationship Specialty Start Date End Date Christian Merritt MD PCP - General Emergency Medicine 06/10/22 documented as of this encounter
--- OUTSIDE RECORDS SUMMARY | 2024-10-30 17:29 | XMS_ITS | Encounter Summary ---
Author Organization [facility] Care Team Providers Care Overhead Door Technician Name Role Phone Christian Merritt MD Primary Care Provider [phone] Encounter Details Date Type Department Care Team (Latest Contact Info) Description 12/06/2016 Orders Only [facility] CLINCONV ProviderSerge MD [address] [place], [place] [id number] Social History Tobacco Use Types Packs/Day Years Used Date Smoking Tobacco: Never Assessed Comments Unknown Sex and Gender Information Value Date Recorded Sex Assigned at Not on file Legal Sex Female 8:06 PM DRY PAN OPERATOR Gender Identity Not on file Sexual Orientation [...] on filedocumented in this encounter Care Teams Overhead Door Technician Relationship Specialty Start Date End Date Christian Merritt MD PCP - General Emergency Medicine 06/10/22 documented as of this encounter
--- NOTE | 2024-10-30 17:53 | ED.GENADULT ---
HPI - General Adult General Chief complaint: Nausea/Vomiting/Diarrhea <Damion Castellanos MD - Last Filed: 10/30/24 23:10> Stated complaint: n/v/d, facial tingling, hands tighening <Damion Castellanos MD - Last Filed: 10/30/24 23:10> Time Seen by Provider: 10/30/24 17:41 <Damion Castellanos MD - Last Filed: 10/30/24 23:10> History of Present Illness HPI narrative: Patient is a 34-year-old female who presents ER with nausea vomiting diarrhea. Ongoing over last week. Cannot quantify how much diarrhea she is having but it small squirts. She has been having persistent vomiting. She has a PEG tube in cannot keep her tube feeds down to the vomiting. No fevers or chills. No known sick contacts. Has not been on antibiotics recently. Reports she has neuropathy but does not know why. Denies diabetes. Seen 1 week ago for similar symptoms. She is also having headache at this time. Throbbing. No change in vision or hearing. Has poor with tingling and tingling in her hands and legs from the vomiting. She reports that this is partially due to her neuropathy but also worsens when she is stressed. <Damion Castellanos MD - Last Filed: 10/30/24 23:10> Related Data Home medications: Home Medications ?Medication ?Instructions ?Recorded ?Confirmed ?Last Taken ?Type ferrous sulfate 325 mg (65 mg 325 mg PO BID 03/28/24 08/07/24 Unknown History iron) tablet,delayed release folic acid 1 mg tablet 1 mg feeding tube DAILY 03/28/24 08/07/24 Unknown History megestrol 20 mg tablet 20 mg feeding tube QAM 03/28/24 08/07/24 Unknown History multivitamin with folic acid 400 1 tablet PO QAM 03/28/24 08/07/24 Unknown History mcg tablet (Thera) thiamine HCl (vitamin B1) 100 mg 100 mg feeding tube DAILY 03/28/24 08/07/24 Unknown History tablet trazodone 50 mg tablet 50 mg feeding tube HS PRN insomnia 03/28/24 08/07/24 Unknown History vitamin B complex (Vitamins B 1 cap feeding tube QAM 03/28/24 08/07/24 Unknown History Complex capsule) lactose-reduced food with fiber See Rx Instructions .Route .COMPLEX 08/07/24 08/07/24 Unknown History 0.06 gram-1.5 kcal/mL oral liquid (Jevity 1.5 Chriss) <Damion Castellanos MD - Last Filed: 10/30/24 23:10> Allergies/adverse reactions: Allergies Allergy/AdvReac Type Severity Reaction Status Date / Time latex Allergy Rash Verified 10/24/24 13:27 <Damion Castellanos MD - Last Filed: 10/30/24 23:10> Review of Systems Review of Systems: All systems reviewed & are unremarkable except as noted in HPI and below <Damion Castellanos MD - Last Filed: 10/30/24 23:10> Constitutional: Constitutional: Reports no additional constitutional complaints <Damion Castellanos MD - Last Filed: 10/30/24 23:10> ENT: Reports system reviewed and no additional complaints, except as documented <Damion Castellanos MD - Last Filed: 10/30/24 23:10> Cardiovascular: Cardiovascular: Reports no additional cardiovascular complaints <Damion Castellanos MD - Last Filed: 10/30/24 23:10> Respiratory: Respiratory: Reports no additional respiratory complaints <Damion Castellanos MD - Last Filed: 10/30/24 23:10> [facility] Past Medical History Medical History: Medical History Adrenal insufficiency Depression with anxiety Avoidant/restrictive food intake disorder Cannabis abuse Elevated LFTs Mitral valve prolapse <Damion Castellanos MD - Last Filed: 10/30/24 23:10> Surgical History Surgical History: Surgical History History of percutaneous endoscopic gastrostomy <Damion Castellanos MD - Last Filed: 10/30/24 23:10> Family History Family History: Family History Mother Heart attack Mitral valve prolapse Grandparent Cancer Grandparent Mitral valve prolapse <Damion Castellanos MD - Last Filed: 10/30/24 23:10> Social History Social History: Social History (Reviewed 10/09/24 @ 15:57 by HAO Sheehan Social History: Surrogate medical decision maker: Jorge Luis Centeno, significant other. Code status: Full code. Smoking packs per day: 0.3 Smoking cigarettes per day: 6.0 Years smoked: 19 Smoking pack-years: 5.70 Smoking status: Current every day smoker Tobacco type: cigarettes Alcohol intake: current Drinks per week: 8 Alcohol use details: States she drinks 1 pint a week Substance use: former Substance use type: marijuana Other substance usage details: 1 pint of Rum/week; last intake 03/25/24 Last use: 10/31/23 Do You Feel Safe in your Home?: Yes Lack of Transportation: No Lack of Food: Never True Current Housing: I Have Housing Concerned About Future Housing: No Difficulty Paying Gas/Electric Bills: No Difficulty Paying for Meds: No Currently Unemployed: No Education: High School Diploma/GED Difficulty w/ Childcare or Family Care: No Living arrangements: with family Additional living arrangements comments: with 7 year old son and fianc? Occupation/Education: unemployed Spiritual care concerns: No Agree to blood products: Yes <Damion Castellanos MD - Last Filed: 10/30/24 23:10> Exam Narrative: GENERAL: Chronically ill-appearing underweight, and in no acute distress. HEAD: Normocephalic, atraumatic. EYES: PERRL and EOMI. ENT: Mucous membranes moist. CHEST: Clear to auscultation. No respiratory distress. HEART: Tachycardic and regular. Normal peripheral pulses. ABDOMEN: Soft, nontender, nondistended. EXTREMITIES: Normal range of motion. No edema. SKIN: Warm, dry, no rash. NEURO: Alert and oriented x3. PSYCH: Normal mood and affect. <Damion Castellanos MD - Last Filed: 10/30/24 23:10> Course Course Emergency Course: 2223: Patient had acute decompensation where she was in VFib arrest. Patient was receiving IV magnesium and had already received sodium bicarb when she went into VFib. She was given CaCl and Epi during arrest. Shock x 1 with ROSC. Mg bolued. Pt then with 15 sec of Vtach and awake. Give Mg 2g (has now had 4g total). Pt A&O x 4, asking for her family to be contacted. Discussed with ICU who requests CT abd/pel noncon. Discussed with Dr. Patton with Cardiology, recommends transfer to [facility] for EP given h/o prolonged QT and now a vfib arrest. Transfer line contacted. Pt on maintenance fluid. Reciving KCl 40 mEq IV. 2240: Dr. Nova with EP accepts patient, will be on a list for ICU. Recommends repeat electrolytes after potassium infusion. Goal K+ >4.0 and Mg >2.0. Bolus again if needed. 2310: [place] to Dr. Lewis. <Damion Castellanos MD - Last Filed: 10/30/24 23:10> 2224: Patient had acute decompensation where she was in VFib arrest. Patient was receiving IV magnesium and had already received sodium bicarb when she went into VFib. She was given CaCl and Epi during arrest. Shock x 1 with ROSC. Mg bolued. Pt then with 15 sec of Vtach and awake. Give Mg 2g (has now had 4g total). Pt A&O x 4, asking for her family to be contacted. Discussed with ICU who requests CT abd/pel noncon. Discussed with Dr. Patton with Cardiology, recommends transfer to [facility] for EP given h/o prolonged QT and now a vfib arrest. Transfer line contacted. Pt on maintenance fluid. Reciving KCl 40 mEq IV. 2240: Dr. Nova with EP accepts patient, will be on a list for ICU. Recommends repeat electrolytes after potassium infusion. Goal K+ >4.0 and Mg >2.0. Bolus again if needed. 2310: [place] to Dr. Lewis. 01:04 (MD Joshua) - I received notification from the [facility] transfer system. [facility] ICU is at capacity with a waiting list. [facility] fitness and wellness coordinator was able to discuss the patient with [facility] CCU who recommended ED to ED transfer. I discussed the patient with [facility] ED physician, Dr. Doty who accepts transfer. Repeat chemistries (potassium, calcium and magnesium) due in approximately 30 minutes. <Alvino Lewis MD - Last Filed: 10/31/24 01:31> Vital Signs Vital signs: Vital Signs Temperature 97.1 F L 10/30/24 17:29 Pulse Rate 120 H 10/30/24 17:29 Respiratory Rate 20 10/30/24 17:29 Blood Pressure 137/89 10/30/24 17:29 Pulse Oximetry 100 10/30/24 17:29 Temperature 98.5 F 10/30/24 18:32 Pulse Rate 114 H 10/31/24 01:00 Respiratory Rate 20 10/31/24 01:00 Blood Pressure 115/79 10/31/24 01:00 Pulse Oximetry 100 10/31/24 01:00 <Damion Castellanos MD - Last Filed: 10/30/24 23:10> Vital Signs Temperature 97.1 F L 10/30/24 17:29 Pulse Rate 120 H 10/30/24 17:29 Respiratory Rate 20 10/30/24 17:29 Blood Pressure 137/89 10/30/24 17:29 Pulse Oximetry 100 10/30/24 17:29 Temperature 98.5 F 10/30/24 18:32 Pulse Rate 114 H 10/31/24 01:00 Respiratory Rate 20 10/31/24 01:00 Blood Pressure 115/79 10/31/24 01:00 Pulse Oximetry 100 10/31/24 01:00 <Alvino Lewis MD - Last Filed: 10/31/24 01:31> Medical Decision Making Vital Signs Vital Signs: Vital Signs Temperature 97.1 F L 10/30/24 17:29 Pulse Rate 120 H 10/30/24 17:29 Respiratory Rate 20 10/30/24 17:29 Blood Pressure 137/89 10/30/24 17:29 Pulse Oximetry 100 10/30/24 17:29 Temperature 98.5 F 10/30/24 18:32 Pulse Rate 114 H 10/31/24 01:00 Respiratory Rate 20 10/31/24 01:00 Blood Pressure 115/79 10/31/24 01:00 Pulse Oximetry 100 10/31/24 01:00 <Damion Castellanos MD - Last Filed: 10/30/24 23:10> Vital Signs Temperature 97.1 F L 10/30/24 17:29 Pulse Rate 120 H 10/30/24 17:29 Respiratory Rate 20 10/30/24 17:29 Blood Pressure 137/89 10/30/24 17:29 Pulse Oximetry 100 10/30/24 17:29 Temperature 98.5 F 10/30/24 18:32 Pulse Rate 114 H 10/31/24 01:00 Respiratory Rate 20 10/31/24 01:00 Blood Pressure 115/79 10/31/24 01:00 Pulse Oximetry 100 10/31/24 01:00 <Alvino Lewis MD - Last Filed: 10/31/24 01:31> Lab Data Result diagrams: 10/30/24 18:14 10/30/24 20:08 <Damion Castellanos MD - Last Filed: 10/30/24 23:10> Labs: Lab Results 10/30/24 10/30/24 10/30/24 Range/Units 18:14 18:30 19:06 WBC 6.5 (4.5-10.0) K/mm3 RBC 4.21 (4.2-5.4) M/mm3 Hgb 14.5 D (12.0-15.0) g/dL Hct 41.1 (37.0-47.0) % MCV 97.6 (80-100) fl MCH 34.4 H (26-34) pg MCHC 35.3 (32-36) g/dl RDW 14.6 H (11.5-14.5) % Plt Count 167 (150-375) k/mm3 MPV 11.3 H (7.4-10.4) fl Immature Gran % (Auto) 0.3 (0-0.5) % Neut % (Auto) 63.0 (45.5-73.1) % Lymph % (Auto) 21.8 (18.3-44.2) % Marathon % (Auto) 14.1 H (2.6-8.5) % Eos % (Auto) 0.3 (0-4.4) % Baso % (Auto) 0.5 (0.2-1.2) % Lymph # (Auto) 1.42 (0.9-3.2) K/mm3 Marathon # (Auto) 0.9 H (0.1-0.6) K/mm3 Eos # (Auto) 0.0 (0-0.3) K/mm3 Baso # (Auto) 0.0 (0.0-0.1) K/mm3 Abs Immat Gran (auto) 0.02 (0.00-0.031) K/mm3 Absolute Neuts (auto) 4.1 (1.3-6.7) K/mm3 Absolute Nucleated RBC 0.000 (0.0-0.012) K/mm3 Nucleated RBC % 0.0 (0.0-0.2) % PT 13.4 (11.1-14.7) Seconds INR 1.0 APTT 25.0 (22.3-36.8) Seconds Sodium (137-145) mmol/L Potassium (3.4-5.0) mmol/L Chloride (98-107) mmol/L Carbon Dioxide (22-30) mmol/L Anion Gap (4-12) mmol/L BUN (7-17) mg/dL Creatinine (0.7-1.0) mg/dL Estim Creat Clear Calc Estimated GFR (59 - ) Glucose (65-110) mg/dL Calcium (8.4-10.2) mg/dL Magnesium (1.6-2.3) mg/dL Total Bilirubin (0.2-1.3) mg/dL AST (14-36) U/L ALT (6-35) U/L Alkaline Phosphatase (38-126) U/L Total Protein (6.3-8.2) g/dL Albumin (3.5-5.1) g/dL Lipase (23-300) U/L Urine Color (Yellow) Urine Appearance (Clear) Urine pH (5.0-9.0) Ur Specific [place] (1.001-1.035) Urine Protein (Negative) mg/dL Urine Glucose (UA) (Negative) mg/dL Urine Ketones (Negative) mg/dL Ur Blood (Man) (Negative) Urine Nitrate (Negative) Urine Bilirubin (Negative) Urine Urobilinogen (<2.0) mg/dL Add Ur Microanalysis Leukocyte Esterase Rfl (Negative) BECKY/UL Urine RBC (0-2) /hpf Urine WBC (0-3) /hpf Ur Squamous Epith Cells (Few) /hpf Urine Bacteria /hpf Urine Casts POC Urine HCG, Qual Negative (Negative) Urine Opiates Screen (Negative) Urine Methadone Screen (Negative) Ur Barbiturates Screen (Negative) Ur Phencyclidine Scrn (Negative) Ur Amphetamine Screen (Negative) U Benzodiazepines Scrn (Negative) Urine Cocaine Screen (Negative) U Cannabinoids Screen (Negative) Blood Type A Positive Antibody Screen Negative 10/30/24 10/30/24 Range/Units 19:46 20:08 WBC (4.5-10.0) K/mm3 RBC (4.2-5.4) M/mm3 Hgb (12.0-15.0) g/dL Hct (37.0-47.0) % MCV (80-100) fl MCH (26-34) pg MCHC (32-36) g/dl RDW (11.5-14.5) % Plt Count (150-375) k/mm3 MPV (7.4-10.4) fl Immature Gran % (Auto) (0-0.5) % Neut % (Auto) (45.5-73.1) % Lymph % (Auto) (18.3-44.2) % Marathon % (Auto) (2.6-8.5) % Eos % (Auto) (0-4.4) % Baso % (Auto) (0.2-1.2) % Lymph # (Auto) (0.9-3.2) K/mm3 [place] # (Auto) (0.1-0.6) K/mm3 Eos # (Auto) (0-0.3) K/mm3 Baso # (Auto) (0.0-0.1) K/mm3 Abs Immat Gran (auto) (0.00-0.031) K/mm3 Absolute Neuts (auto) (1.3-6.7) K/mm3 Absolute Nucleated RBC (0.0-0.012) K/mm3 Nucleated RBC % (0.0-0.2) % PT (11.1-14.7) Seconds INR APTT (22.3-36.8) Seconds Sodium 130 L (137-145) mmol/L Potassium 3.1 L (3.4-5.0) mmol/L Chloride 89 L (98-107) mmol/L Carbon Dioxide 27 (22-30) mmol/L Anion Gap 14 H (4-12) mmol/L BUN 8 D (7-17) mg/dL Creatinine 0.62 L (0.7-1.0) mg/dL Estim Creat Clear Calc Not Reportable Estimated GFR > 60 (59 - ) Glucose 96 (65-110) mg/dL Calcium 7.0 L (8.4-10.2) mg/dL Magnesium 0.7 L (1.6-2.3) mg/dL Total Bilirubin 2.6 H (0.2-1.3) mg/dL AST 162 H (14-36) U/L ALT 67 H (6-35) U/L Alkaline Phosphatase 117 (38-126) U/L Total Protein 6.0 L (6.3-8.2) g/dL Albumin 3.0 L (3.5-5.1) g/dL Lipase 56 (23-300) U/L Urine Color Uyen (Yellow) Urine Appearance Cloudy H (Clear) Urine pH 5.5 (5.0-9.0) Ur Specific [place] 1.021 (1.001-1.035) Urine Protein 1+ H (Negative) mg/dL Urine Glucose (UA) Negative (Negative) mg/dL Urine Ketones Negative (Negative) mg/dL Ur Blood (Man) Negative (Negative) Urine Nitrate Positive H (Negative) Urine Bilirubin 2+ H (Negative) Urine Urobilinogen 1.0 (<2.0) mg/dL Add Ur Microanalysis Reviewed Leukocyte Esterase Rfl 1+ H (Negative) BECKY/UL Urine RBC 0-2 (0-2) /hpf Urine WBC 0-5 (0-3) /hpf Ur Squamous Epith Cells Few (Few) /hpf Urine Bacteria None seen /hpf Urine Casts 3-5 POC Urine HCG, Qual (Negative) Urine Opiates Screen Negative (Negative) Urine Methadone Screen Negative (Negative) Ur Barbiturates Screen Negative (Negative) Ur Phencyclidine Scrn Negative (Negative) Ur Amphetamine Screen Negative (Negative) U Benzodiazepines Scrn Negative (Negative) Urine Cocaine Screen Negative (Negative) U Cannabinoids Screen Negative (Negative) Blood Type Antibody Screen <Damion Castellanos MD - Last Filed: 10/30/24 23:10> Lab Results 10/30/24 10/30/24 10/30/24 Range/Units 18:14 18:30 19:06 WBC 6.5 (4.5-10.0) K/mm3 RBC 4.21 (4.2-5.4) M/mm3 Hgb 14.5 D (12.0-15.0) g/dL Hct 41.1 (37.0-47.0) % MCV 97.6 (80-100) fl MCH 34.4 H (26-34) pg MCHC 35.3 (32-36) g/dl RDW 14.6 H (11.5-14.5) % Plt Count 167 (150-375) k/mm3 MPV 11.3 H (7.4-10.4) fl Immature Gran % (Auto) 0.3 (0-0.5) % Neut % (Auto) 63.0 (45.5-73.1) % Lymph % (Auto) 21.8 (18.3-44.2) % Marathon % (Auto) 14.1 H (2.6-8.5) % Eos % (Auto) 0.3 (0-4.4) % Baso % (Auto) 0.5 (0.2-1.2) % Lymph # (Auto) 1.42 (0.9-3.2) K/mm3 Marathon # (Auto) 0.9 H (0.1-0.6) K/mm3 Eos # (Auto) 0.0 (0-0.3) K/mm3 Baso # (Auto) 0.0 (0.0-0.1) K/mm3 Abs Immat Gran (auto) 0.02 (0.00-0.031) K/mm3 Absolute Neuts (auto) 4.1 (1.3-6.7) K/mm3 Absolute Nucleated RBC 0.000 (0.0-0.012) K/mm3 Nucleated RBC % 0.0 (0.0-0.2) % PT 13.4 (11.1-14.7) Seconds INR 1.0 APTT 25.0 (22.3-36.8) Seconds Sodium (137-145) mmol/L Potassium (3.4-5.0) mmol/L Chloride (98-107) mmol/L Carbon Dioxide (22-30) mmol/L Anion Gap (4-12) mmol/L BUN (7-17) mg/dL Creatinine (0.7-1.0) mg/dL Estim Creat Clear Calc Estimated GFR (59 - ) Glucose (65-110) mg/dL Calcium (8.4-10.2) mg/dL Magnesium (1.6-2.3) mg/dL Total Bilirubin (0.2-1.3) mg/dL AST (14-36) U/L ALT (6-35) U/L Alkaline Phosphatase (38-126) U/L Total Protein (6.3-8.2) g/dL Albumin (3.5-5.1) g/dL Lipase (23-300) U/L Urine Color (Yellow) Urine Appearance (Clear) Urine pH (5.0-9.0) Ur Specific [place] (1.001-1.035) Urine Protein (Negative) mg/dL Urine Glucose (UA) (Negative) mg/dL Urine Ketones (Negative) mg/dL Ur Blood (Man) (Negative) Urine Nitrate (Negative) Urine Bilirubin (Negative) Urine Urobilinogen (<2.0) mg/dL Add Ur Microanalysis Leukocyte Esterase Rfl (Negative) BECKY/UL Urine RBC (0-2) /hpf Urine WBC (0-3) /hpf Ur Squamous Epith Cells (Few) /hpf Urine Bacteria /hpf Urine Casts POC Urine HCG, Qual Negative (Negative) Urine Opiates Screen (Negative) Urine Methadone Screen (Negative) Ur Barbiturates Screen (Negative) Ur Phencyclidine Scrn (Negative) Ur Amphetamine Screen (Negative) U Benzodiazepines Scrn (Negative) Urine Cocaine Screen (Negative) U Cannabinoids Screen (Negative) Blood Type A Positive Antibody Screen Negative 10/30/24 10/30/24 Range/Units 19:46 20:08 WBC (4.5-10.0) K/mm3 RBC (4.2-5.4) M/mm3 Hgb (12.0-15.0) g/dL Hct (37.0-47.0) % MCV (80-100) fl MCH (26-34) pg MCHC (32-36) g/dl RDW (11.5-14.5) % Plt Count (150-375) k/mm3 MPV (7.4-10.4) fl Immature Gran % (Auto) (0-0.5) % Neut % (Auto) (45.5-73.1) % Lymph % (Auto) (18.3-44.2) % Marathon % (Auto) (2.6-8.5) % Eos % (Auto) (0-4.4) % Baso % (Auto) (0.2-1.2) % Lymph # (Auto) (0.9-3.2) K/mm3 [place] # (Auto) (0.1-0.6) K/mm3 Eos # (Auto) (0-0.3) K/mm3 Baso # (Auto) (0.0-0.1) K/mm3 Abs Immat Gran (auto) (0.00-0.031) K/mm3 Absolute Neuts (auto) (1.3-6.7) K/mm3 Absolute Nucleated RBC (0.0-0.012) K/mm3 Nucleated RBC % (0.0-0.2) % PT (11.1-14.7) Seconds INR APTT (22.3-36.8) Seconds Sodium 130 L (137-145) mmol/L Potassium 3.1 L (3.4-5.0) mmol/L Chloride 89 L (98-107) mmol/L Carbon Dioxide 27 (22-30) mmol/L Anion Gap 14 H (4-12) mmol/L BUN 8 D (7-17) mg/dL Creatinine 0.62 L (0.7-1.0) mg/dL Estim Creat Clear Calc Not Reportable Estimated GFR > 60 (59 - ) Glucose 96 (65-110) mg/dL Calcium 7.0 L (8.4-10.2) mg/dL Magnesium 0.7 L (1.6-2.3) mg/dL Total Bilirubin 2.6 H (0.2-1.3) mg/dL AST 162 H (14-36) U/L ALT 67 H (6-35) U/L Alkaline Phosphatase 117 (38-126) U/L Total Protein 6.0 L (6.3-8.2) g/dL Albumin 3.0 L (3.5-5.1) g/dL Lipase 56 (23-300) U/L Urine Color Uyen (Yellow) Urine Appearance Cloudy H (Clear) Urine pH 5.5 (5.0-9.0) Ur Specific [place] 1.021 (1.001-1.035) Urine Protein 1+ H (Negative) mg/dL Urine Glucose (UA) Negative (Negative) mg/dL Urine Ketones Negative (Negative) mg/dL Ur Blood (Man) Negative (Negative) Urine Nitrate Positive H (Negative) Urine Bilirubin 2+ H (Negative) Urine Urobilinogen 1.0 (<2.0) mg/dL Add Ur Microanalysis Reviewed Leukocyte Esterase Rfl 1+ H (Negative) BECKY/UL Urine RBC 0-2 (0-2) /hpf Urine WBC 0-5 (0-3) /hpf Ur Squamous Epith Cells Few (Few) /hpf Urine Bacteria None seen /hpf Urine Casts 3-5 POC Urine HCG, Qual (Negative) Urine Opiates Screen Negative (Negative) Urine Methadone Screen Negative (Negative) Ur Barbiturates Screen Negative (Negative) Ur Phencyclidine Scrn Negative (Negative) Ur Amphetamine Screen Negative (Negative) U Benzodiazepines Scrn Negative (Negative) Urine Cocaine Screen Negative (Negative) U Cannabinoids Screen Negative (Negative) Blood Type Antibody Screen <Alvino Lewis MD - Last Filed: 10/31/24 01:31> Imaging Data Radiologist's impression: CLINICAL HISTORY: UNRESPONSIVE, S/P CPR . COMPARISON: 02/05/2024 TECHNIQUE: Single portable view of the chest. FINDINGS The cardiomediastinal silhouette is unremarkable. Increased opacification within the left mid to lower lung field for which early infiltrate is suspected. The remainder of the lungs are clear. Possible nondisplaced eighth, ninth and 10th right rib fractures are present. IMPRESSION: Early infiltrate suspected within the left mid to lower lung field. Possible nondisplaced right eighth, ninth and 10th rib fractures. Reviewed, dictated and finalized at location A. CLINICAL INDICATION: Nausea vomiting and diarrhea COMPARISON: 08/07/2024. TECHNIQUE: Multiple contiguous axial images of the abdomen and pelvis were performed without the administration of intravenous contrast The dose-length product (DLP) was 194.67 mGy-cm. Automated exposure control and iterative reconstruction technique were employed. FINDINGS/OBSERVATIONS: Visualized lower thorax: Hazy opacification of the left lower lobe for which an early infiltrate (possible aspiration) is suspected. The right lung base is clear. The heart is of normal size, without pericardial effusion. Small hiatal hernia is present. Liver: The liver demonstrates homogeneously decreased attenuation, consistent with fatty infiltration and is not enlarged. Gallbladder and biliary system: The gallbladder is only minimally distended, and otherwise unremarkable. Pancreas: Limited evaluation of the pancreas secondary to the lack of intravenous contrast. Spleen: The spleen demonstrates homogeneous attenuation and is not enlarged. Kidneys: The bilateral kidneys are unremarkable, without hydronephrosis or renal calculi. Adrenal glands: Unremarkable. Gastrointestinal tract: Percutaneous gastrostomy within the stomach. Edematous mural thickening within the entirety of the colon, possibly secondary to hypotension. Vasculature: Unremarkable. Lymph nodes: Limited evaluation without intravenous contrast. Pelvic structures: The bladder is minimally distended, and otherwise unremarkable. The uterus is anteverted and anteflexed, and contains the Anderson balloon as well as the Anderson catheter. Body wall and musculoskeletal: No significant degenerative disease within the lower thoracic or lumbosacral spine. IMPRESSION: Findings within the left lower lobe of the lung for which either aspiration/early infiltrate versus pulmonary contusion is suspected. No acute displaced rib fractures are noted. Edematous mural thickening within the entirety of the colon, for which shock bowel is suspected. Additional findings within the uterus for which inadvertent placement of the Anderson catheter is suspected (findings given to Uday Kaminski RN at 9:55 PM on 10/30/2024). <Damion Castellanos MD - Last Filed: 10/30/24 23:10> ECG Data EKG #1: ECG completion date: 10/30/24 <Damion Castellanos MD - Last Filed: 10/30/24 23:10> ECG completion time: 20:33 <Damion Castellanos MD - Last Filed: 10/30/24 23:10> EKG Interpretation: sinus rhythm, PVCs, non-specific ST changes, normal QRS and prolonged QT <Damion Castellanos MD - Last Filed: 10/30/24 23:10> EKG #2: ECG completion date: 10/30/24 <Damion Castellanos MD - Last Filed: 10/30/24 23:10> ECG completion time: 22:08 <Damion Castellanos MD - Last Filed: 10/30/24 23:10> EKG Interpretation: tachycardia (108), sinus rhythm, non-specific ST changes, normal QRS, prolonged QT (472qtc) and NL axis <Damion Castellanos MD - Last Filed: 10/30/24 23:10> Critical Care Time Critical Care Time Critical Care Time: Yes <Damion Castellanos MD - Last Filed: 10/30/24 23:10> Total Critical Care Time: 45 <Damion Castellanos MD - Last Filed: 10/30/24 23:10> Discharge Plan Discharge Clinical Impression: Cardiac arrest with ventricular fibrillation, Acute hypokalemia, Hypomagnesemia, Ventricular tachycardia <Damion Castellanos MD - Last Filed: 10/30/24 23:10> Patient Disposition: Acute Care Hospital <Damion Castellanos MD - Last Filed: 10/30/24 23:10> Condition: Serious <Damion Castellanos MD - Last Filed: 10/30/24 23:10> Patient Language: Macedonian <Damion Castellanos MD - Last Filed: 10/30/24 23:10> Prescriptions: No Action buprenorphine 7.5 mcg/hour patch weekly 1 patch transdermal Q7D 28 Days Qty: 4 0RF Rx Instructions: apply 1 patch to clean, dry, intact skin of the upper body. Remove, discard and replace every 7 days. Rotate site with each new placement. duloxetine 60 mg Capsule,Delayed Release(Dr/Ec) 60 mg PO QAM Qty: 30 0RF ondansetron 8 mg tablet,disintegrating 8 mg PO Q8H PRN (Reason: nausea and vomiting) Qty: 90 0RF trazodone 50 mg tablet 50 mg feeding tube HS PRN (Reason: insomnia) thiamine HCl (vitamin B1) 100 mg tablet 100 mg feeding tube DAILY folic acid 1 mg tablet 1 mg feeding tube DAILY ferrous sulfate 325 mg (65 mg iron) tablet,delayed release (DR/EC) 325 mg PO BID Rx Instructions: patient administers via feeding tube megestrol 20 mg tablet 20 mg feeding tube QAM vitamin B complex [Vitamins B Complex] Capsule 1 cap feeding tube QAM multivitamin with folic acid [Thera] 400 mcg tablet 1 tablet PO QAM Rx Instructions: pt administers via feeding tube Jevity 1.5 Chriss 0.06 gram-1.5 kcal/mL liquid See Rx Instructions .ROUTE .COMPLEX Rx Instructions: 75ml four times a day. prednisone 2.5 mg Tablet 2.5 mg PO BID Qty: 60 0RF potassium chloride 10 mEq capsule, extended release 10 meq feeding tube DAILY Qty: 60 0RF magnesium sulfate 100 mg capsule 100 mg PO BID Qty: 60 0RF metoclopramide HCl [Reglan] 10 mg tablet 10 mg PO Q6H Qty: 120 0RF <Damion Castellanos MD - Last Filed: 10/30/24 23:10> Follow-up/Referrals: Mo Mitchell MD [Primary Care Provider] - <Damion Castellanos MD - Last Filed: 10/30/24 23:10> Time of Disposition: 01:30 <Damion Castellanos MD - Last Filed: 10/30/24 23:10> 01:30 <Alvino Lewis MD - Last Filed: 10/31/24 01:31>
--- OUTSIDE RECORDS SUMMARY | 2024-10-30 18:10 | XMS_ITS | Encounter Summary ---
Author Organization [facility] Facility Care Team Providers Care Hot Packer Name Role Phone Christian Merritt MD Primary Care Provider [phone] Encounter Details Date Type Department Care Team (Latest Contact Info) Description 12/06/2016 Orders Only [facility] CLINCONV ProviderSerge MD [address] [place], [place] [id number] Social History Tobacco Use Types Packs/Day Years Used Date Smoking Tobacco: Never Assessed Comments Unknown Sex and Gender Information Value Date Recorded Sex Assigned at Not on file Legal Sex Female 8:06 PM ACCESS REP Gender Identity Not on file Sexual Orientation [...] on filedocumented in this encounter Care Teams Hot Packer Relationship Specialty Start Date End Date Christian Merritt MD PCP - General Emergency Medicine 06/10/22 documented as of this encounter
--- OUTSIDE RECORDS SUMMARY | 2024-10-30 18:10 | XMS_ITS | Referral Summary ---
Author Organization [facility] Address [address] [place] [address] Care Team Providers Care Personnel Consultant Name Role Phone Christian Merritt MD Primary Care Provider Allergies Active Allergy Reactions Criticality Noted Date [...] on file Legal Sex Female 8:06 PM HEALTH SAFETY COORDINATOR Gender Identity Not on file Sexual Orientation Not on file Last Filed Vital Signs Vital Sign Reading Time Taken Comments Blood Pressure 105/79 06/26/2023 9:30 PM HEALTH SAFETY COORDINATOR Pulse 84 06/26/2023 9:30 PM HEALTH SAFETY COORDINATOR Temperature 36.7 C (98 F) 06/26/2023 3:35 PM HEALTH SAFETY COORDINATOR Respiratory Rate 18 06/26/2023 3:35 PM HEALTH SAFETY COORDINATOR Oxygen Saturation 98% 06/26/2023 9:30 PM HEALTH SAFETY COORDINATOR Inhaled Oxygen Concentration - - Weight 38.6 kg (85 lb) 06/26/2023 3:35 PM HEALTH SAFETY COORDINATOR Height 154.9 cm (5' 1 ) 06/26/2023 3:35 PM HEALTH SAFETY COORDINATOR Body Mass Index 16.06 06/26/2023 3:35 PM HEALTH SAFETY COORDINATOR Plan of Treatment Not on file Procedures Procedure Name Priority Date/Time Associated Diagnosis Comments THINPREP TIS PAP REFLEX HPV MRNA E6/E7, CHLAMYDIA/N.GONORRH OEAE Routine 09/14/2016 12:56 PM HEALTH SAFETY COORDINATOR HEPATITIS C ANTIBODY Routine 09/14/2016 11:43 AM HEALTH SAFETY COORDINATOR from Last 3 Months or Most Recently Relevant to Health Maintenance Results * THINPREP TIS PAP REFLEX HPV mRNA E6/E7, CHLAMYDIA/N.GONORRHOEAE (09/14/2016 12:56 PM HEALTH SAFETY COORDINATOR) CLINICAL INFORMATION [facility] HISTORICAL RESULTS Comment: LMP: [facility] HISTORICAL RESULTS PREV. PAP: [facility] EC HISTORICAL RESULTS Comment:2011 PREV. BX: [facility] HISTORICAL RESULTS Comment:UNKNOWN SOURCE: [facility] HISTORICAL RESULTS Comment:Cervix, Endocervix STATEMENT OF ADEQUACY: [facility] HISTORICAL RESULTS Comment:Satisfactory for savana luation. Endocervical/transformation zone component present. INTERPRETATION/RES ULT: [facility] HISTORICAL RESULTS Comment:Negative for intraep ithelial lesion or malignancy. COMMENT: [facility] HISTORICAL RESULTS Comment:This Pap test has be en evaluated with computer assisted technology. BELL RINGER: [facility] HISTORICAL RESULTS Comment:YQ, CT(ASCP) CT scre ening location: [place] [address] [place] [address] C. trachomatis RNA NOT DETECTED NOT DETECTED [facility] HISTORICAL RESULTS N. gonorrhoeae RNA NOT DETECTED NOT DETECTED [facility] HISTORICAL RESULTS COMMENT [facility] HISTORICAL RESULTS Comment: This test was performed using the APTIMA COMBO2 Assay ([employer] The analytical performance characteristics of this assay, when used to test SurePath specimens have been determined by [employer]. 09/14/2016 12:5 6 PM HEALTH SAFETY COORDINATOR 09/20/2016 11:25 AM HEALTH SAFETY COORDINATOR Narrative [facility] HISTORICAL RESULTS - 09/20/2016 11:07 AM HEALTH SAFETY COORDINATOR 0 PERFORMING LAB: [place] [address] [facility] [address] Pelon Hand MD us Irene Spivey CNM LAB PATHOLOGY ORDERABLE S Final Result Performing Organization Address City/[facility] de Phone Number [facility] HISTORICAL RESULTS * Hepatitis C antibody (09/14/2016 11:43 AM HEALTH SAFETY COORDINATOR) Hep C Ab NON-REACTI VE NON-REACTI VE [facility] HISTORICAL RESULTS SIGNAL TO CUT-OFF 0.01 <1.00 [facility] HISTORICAL RESULTS 09/14/2016 11:4 3 AM HEALTH SAFETY COORDINATOR 09/18/2016 6:40 AM HEALTH SAFETY COORDINATOR Narrative [facility] HISTORICAL RESULTS - 09/18/2016 6:21 AM HEALTH SAFETY COORDINATOR 0; 0; 0; 0; 0; 0; 0; 0 FASTING:NO PERFORMING LAB: [place] [address] [id number] James Wu D.O., MPH us Irene Spivey CNM LAB MICROBIOLOGY - GENE RAL ORDERABLES Final Result Performing Organization Address City/[facility]/ZIP Co de Phone Number [facility] HISTORICAL RESULTS from Last 3 Months or Most Recently Relevant to Health Maintenance Insurance Advance Directives For more information, please contact: [phone] * Full Code (Latest Code Status on File) Date Activated Date Inactivated Comments 06/10/2022 11:46 PM 06/12/2022 5:21 PM Care Teams Personnel Consultant Relationship Specialty Start Date End Date Christian Merritt MD PCP - General Emergency Medicine 06/10/22
--- OUTSIDE RECORDS SUMMARY | 2024-10-30 18:10 | XMS_ITS | Encounter Summary ---
Author Organization [facility] Facility Care Team Providers Care Recruitment Manager Name Role Phone Christian Merritt MD Primary Care Provider [phone] Encounter Details Date Type Department Care Team (Latest Contact Info) Description 01/05/2017 Orders Only [facility] CLINCONV ProviderSerge MD [address] [place], [place] [id number] Social History Tobacco Use Types Packs/Day Years Used Date Smoking Tobacco: Never Assessed Comments Unknown Sex and Gender Information Value Date Recorded Sex Assigned at Not on file Legal Sex Female 8:06 PM GOLD PLATER Gender Identity Not on file Sexual Orientation [...] on filedocumented in this encounter Care Teams Recruitment Manager Relationship Specialty Start Date End Date Christian Merritt MD PCP - General Emergency Medicine 06/10/22 documented as of this encounter
--- OUTSIDE RECORDS SUMMARY | 2024-10-30 18:10 | XMS_ITS | Encounter Summary ---
Author Organization [facility] Facility Care Team Providers Care Agriculture Scientist Name Role Phone Christian Merritt MD Primary Care Provider [phone] Encounter Details Date Type Department Care Team (Latest Contact Info) Description 12/09/2016 Orders Only [facility] CLINCONV ProviderSerge MD [address] [place], [place] [id number] Social History Tobacco Use Types Packs/Day Years Used Date Smoking Tobacco: Never Assessed Comments Unknown Sex and Gender Information Value Date Recorded Sex Assigned at Not on file Legal Sex Female 8:06 PM SENIOR ORACLE DEVELOPER Gender Identity Not on file Sexual Orientation [...] on filedocumented in this encounter Care Teams Agriculture Scientist Relationship Specialty Start Date End Date Christian Merritt MD PCP - General Emergency Medicine 06/10/22 documented as of this encounter
--- OUTSIDE RECORDS SUMMARY | 2024-10-30 18:10 | XMS_ITS | Clinical Summary ---
Author Organization [facility] Address [address] [place] [address] Care Team Providers Care Dividend Deposit Voucher Clerk Name Role Phone Christian Merritt MD Primary Care Provider [phone] Allergies Active Allergy Reactions Criticality Noted Date [...] on file Legal Sex Female 8:06 PM LOGISTICS INTERN Gender Identity Not on file Sexual Orientation Not on file Obstetrics History Last Filed Vital Signs Vital Sign Reading Time Taken Comments Blood Pressure 105/79 06/26/2023 9:30 PM LOGISTICS INTERN Pulse 84 06/26/2023 9:30 PM LOGISTICS INTERN Temperature 36.7 C (98 F) 06/26/2023 3:35 PM LOGISTICS INTERN Respiratory Rate 18 06/26/2023 3:35 PM LOGISTICS INTERN Oxygen Saturation 98% 06/26/2023 9:30 PM LOGISTICS INTERN Inhaled Oxygen Concentration - - Weight 38.6 kg (85 lb) 06/26/2023 3:35 PM LOGISTICS INTERN Height 154.9 cm (5' 1 ) 06/26/2023 3:35 PM LOGISTICS INTERN Body Mass Index 16.06 06/26/2023 3:35 PM LOGISTICS INTERN Plan of Treatment Health Maintenance Due Date [...] E6/E7, CHLAMYDIA/N.GONORRH OEAE Routine 09/14/2016 12:56 PM LOGISTICS INTERN HEPATITIS C ANTIBODY Routine 09/14/2016 11:43 AM LOGISTICS INTERN from Last 3 Months or Most Recently Relevant to Health Maintenance Results * THINPREP TIS PAP REFLEX HPV mRNA E6/E7, CHLAMYDIA/N.GONORRHOEAE (09/14/2016 12:56 PM LOGISTICS INTERN) CLINICAL INFORMATION [facility] HISTORICAL RESULTS Comment: LMP: [facility] EC HISTORICAL RESULTS PREV. PAP: [facility] HISTORICAL RESULTS Comment:2011 PREV. BX: [facility] EC HISTORICAL RESULTS Comment:UNKNOWN SOURCE: [facility] HISTORICAL RESULTS Comment:Cervix, Endocervix STATEMENT OF ADEQUACY: [facility] HISTORICAL RESULTS Comment:Satisfactory for savana luation. Endocervical/transformation zone component present. INTERPRETATION/RES ULT: [facility] HISTORICAL RESULTS Comment:Negative for intraep ithelial lesion or malignancy. COMMENT: [facility] HISTORICAL RESULTS Comment:This Pap test has be en evaluated with computer assisted technology. AIRCRAFT STRUCTURE MECHANIC: [facility] HISTORICAL RESULTS Comment:YQ, CT(ASCP) CT scre ening location: [place] [address] [place] [address] C. trachomatis RNA NOT DETECTED NOT DETECTED [facility] HISTORICAL RESULTS N. gonorrhoeae RNA NOT DETECTED NOT DETECTED [facility] HISTORICAL RESULTS COMMENT [facility] HISTORICAL RESULTS Comment: This test was performed using the APTIMA COMBO2 Assay ([employer] The analytical performance characteristics of this assay, when used to test SurePath specimens have been determined by [employer]. 09/14/2016 12:5 6 PM LOGISTICS INTERN 09/20/2016 11:25 AM LOGISTICS INTERN Narrative [facility] HISTORICAL RESULTS - 09/20/2016 11:07 AM LOGISTICS INTERN 0 PERFORMING LAB: [place] [address] [facility] [id number] Pelon Hand MD Irene Spivey [facility] LAB PATHOLOGY ORDERABLE S Final Result [facility] HISTORICAL RESULTS * Hepatitis C antibody (09/14/2016 11:43 AM LOGISTICS INTERN) Pathologist [facility] Hep C Ab NON-REACTI VE NON-REACTI VE [facility] HISTORICAL RESULTS SIGNAL TO CUT-OFF 0.01 <1.00 [facility] HISTORICAL RESULTS 09/14/2016 11:4 3 AM LOGISTICS INTERN 09/18/2016 6:40 AM LOGISTICS INTERN Narrative [facility] HISTORICAL RESULTS - 09/18/2016 6:21 AM LOGISTICS INTERN 0; 0; 0; 0; 0; 0; 0; 0 FASTING:NO PERFORMING LAB: [place], [facility] [address] [place] [address] James Wu D.O., MPH us Irene Spivey CNM LAB MICROBIOLOGY - GENE RAL ORDERABLES Final Result [facility] HISTORICAL RESULTS from Last 3 Months or Most Recently Relevant to Health Maintenance Insurance Member Subscriber Plan / Payer (Ef fective 2018-Present) Name:Ester León Relation to Subscriber:Self Name:Ester León Payer ID:[id number] (NAIC) Type:MEDICAID RISK OTHER Address: [place] [id number] [facility] Advance Directives For more information, please contact: [phone] * Full Code (Latest Code Status on File) Date Activated Date Inactivated Comments 06/10/2022 11:46 PM 06/12/2022 5:21 PM Care Teams Dividend Deposit Voucher Clerk Relationship Specialty Start Date End Date Christian Merritt MD PCP - General Emergency Medicine 06/10/22
[2024-10-30] MEDS: SODIUM CHLORIDE 0.9% IV 1,000 ML 999 ML IV CONT (18:20)
[2024-10-30] MEDS: ONDANSETRON INJ 4 MG/2 ML VIAL IV PUSH (18:20)
[2024-10-30] MEDS: KETOROLAC 30 MG/ML VIAL (*BKC) IV PUSH (18:21)
[2024-10-30 18:30] LABS: Basophils Percent Auto 0.5 % (0.2-1.2); Eosinophils Percent Auto 0.3 % (0-4.4); Hematocrit 41.1 % (37.0-47.0); Hemoglobin 14.5 g/dL (12.0-15.0); Immature Granulocyte Absolute 0.02 K/mm3 (0.00-0.031); Immature Granulocyte Percent A 0.3 % (0-0.5); Lymphocytes Absolute Auto 1.42 K/mm3 (0.9-3.2); Lymphocytes Percent Auto 21.8 % (18.3-44.2); Mean Corpuscular HGB Conc 35.3 g/dl (32-36); Mean Corpuscular Hemoglobin 34.4 pg (26-34); Mean Corpuscular Volume 97.6 fl (80-100); Mean Platelet Volume 11.3 fl (7.4-10.4); Monocytes Absolute Auto 0.9 K/mm3 (0.1-0.6); Monocytes Percent Auto 14.1 % (2.6-8.5); Neutrophils Absolute Auto 4.1 K/mm3 (1.3-6.7); Platelet Count Result 167 k/mm3 (150-375); Red Blood Count 4.21 M/mm3 (4.2-5.4); Red Cell Distribution Width 14.6 % (11.5-14.5); White Blood Count 6.5 K/mm3 (4.5-10.0)
[2024-10-30 18:42] LABS: Prothrombin Time 13.4 Seconds (11.1-14.7)
[2024-10-30 19:08] LABS: BEDSIDEPREGUCG Negative (Negative)
[2024-10-30 20:09] LABS: Add Urine Microscopic? YES; Appearance Urine Cloudy (Clear); Bacteria Urine None Seen /hpf; Bilirubin Urine 2+ (Negative); Blood Urine Negative (Negative); Glucose Urine UA Negative (Negative); Ketones Urine Negative (Negative); Leukocyte Esterase Ur 1+ LEU/UL (Negative); Need Manual Microscopic Reviewed; Nitrate Urine Positive (Negative); Protein Urine 1+ mg/dL (Negative); RBC Urine 0-2 /hpf (0-2); Specific Grav Ur 1.021 (1.001-1.035); Squamous Epithelial Cell Urine Few /hpf (Few); WBC Urine 0-5 /hpf (0-3); pH Urine 5.5 (5.0-9.0)
[2024-10-30 20:12] LABS: Color Urine Amber (Yellow)
--- NOTE | 2024-10-30 20:20 | ECG_ITS ---
Test Date: 2024-10-30 20:33:59 Measurements Intervals [place] Rate: 107 P: 60 SC: 116 QRS: 67 QRSD: 63 T: 78 QT: 361 QTc: 483 Interpretive Statements SINUS TACHYCARDIA WITH SHORT SC INTERVAL WITH FREQUENT VENTRICULAR COUPLETS NONSPECIFIC ST & T-WAVE ABNORMALITY- DIFFUSE LEADS BASELINE ARTIFACT- I, II, III, AVR, AVL, AVF, V1-V6 ABNORMAL ECG Compared to ECG 08/06/2024 19:44:35 HEART RATE HAS INCREASED VENTRICULAR COUPLETS NOW PRESENT Electronically Signed On 10-31-2024 06:13:25 CDT by Jayme Mcneal D.O.
[2024-10-30 20:39] LABS: Alkaline Phosphatase 117 U/L (38-126); Anion Gap 14 mmol/L (4-12); Aspartate Amino Transferase 162 U/L (14-36); Bilirubin,Total 2.6 mg/dL (0.2-1.3); Blood Urea Nitrogen 8 mg/dL (7-17); Carbon Dioxide 27 mmol/L (22-30); Chloride 89 mmol/L (98-107); Estimated Glomerular Filt Rate > 60; Glucose 96 mg/dL (65-110); Lipase 56 U/L (23-300); Potassium 3.1 mmol/L (3.4-5.0); Sodium 130 mmol/L (137-145)
[2024-10-30] MEDS: MAGNESIUM SULF 2 GM/WATER 50ML 2 GM/50 ML BAG IVPB ×2 (20:44→21:18)
[2024-10-30] MEDS: SODIUM BICARBONATE 8.4% 50 MEQ/50 ML SYRINGE IV PUSH (20:44)
[2024-10-30] MEDS: CALCIUM GLUCONATE 1,000 MG/10 ML VIAL 1000 MG IV PUSH (20:54)
[2024-10-30 21:00] LABS: Alanine Aminotransferase 67 U/L (6-35); Magnesium 0.7 mg/dL (1.6-2.3)
[2024-10-30] MEDS: SODIUM CHLORIDE 0.9% IV 1,000 ML 120 ML IV CONT (21:39)
[2024-10-30] MEDS: POTASSIUM CHLORIDE INJ 40 MEQ in SODIUM CHLORIDE 0.9% IV 500 ML 130 MEQ IVPB (21:39)
[2024-10-30] MEDS: SODIUM CHLORIDE 0.9% IV 1,000 ML 125 ML IV CONT (21:41)
--- NOTE | 2024-10-30 21:58 | ECG_ITS ---
Test Date: 2024-10-30 22:08:06 Measurements Intervals [place] Rate: 108 P: 252 AL: 71 QRS: 56 QRSD: 85 T: 73 QT: 409 QTc: 549 Interpretive Statements SINUS TACHYCARDIA ST-T WAVE ABNORMALITY IN ANTEROLAT/INF LEADS- CONSIDER ISCHEMIA BASELINE ARTIFACT- I, II ,AVR ABNORMAL ECG Compared to ECG 10/30/2024 20:33:59 VENTRICULAR COUPLETS NO LONGER PRESENT Electronically Signed On 10-31-2024 06:14:51 CDT by Jayme Mcneal D.O.
--- NOTE | 2024-10-30 22:03 | PC.NURSE ---
Patient asking for medications for hand cramps at 2044, this RN in room with patient checking to see if medications were ordered when Dr. Castellanos walks in around 2046. Patient appears to be seizing. Dr. Castellanos then begins chest compressions at 2047, this RN calls for help and crash cart is brought to the room. Code start time 2047, CPR begins. Bicarb 50 meq given at 2049, Epi 1mg given at 2050, Calcium 1 g given at 2051. Pulse check at 2051, asystole. CPR resumed. Pulse check at 2053, Shock delivered 200j. ROSC at 2053; Patient began reaching around, moving, trying to take ambubag off of face.
[2024-10-30] MEDS: LORazepam INJ (*CRX) 2 MG/ML VIAL 0.5 MG IV PUSH (22:31)
[2024-10-30 22:53] LABS: Amphetamine Screen Urine Negative (Negative); Barbiturate Screen Urine Negative (Negative); Benzodiazepines Screen Urine Negative (Negative); Cannabinoid Screen Urine Negative (Negative); Cocaine Screen Urine Negative (Negative); Methadone Screen Urine Negative (Negative); Opiate Screen Urine Negative (Negative); Phencyclidine Screen Urine Negative (Negative)
[2024-10-30] MEDS: AMPICILLIN SULB 1.5 GM/NS 50ML 1.5 GM/50 ML VIAL IVPB (23:48)
[2024-10-31 00:20] VITALS: BP 116/82; PULSE 113; RESP 25; O2SAT 99
[2024-10-31 00:30] VITALS: BP 113/85; PULSE 110; RESP 21; O2SAT 98
[2024-10-31 00:40] VITALS: BP 113/82; PULSE 107; RESP 20; O2SAT 98
[2024-10-31 01:00] VITALS: BP 115/79; PULSE 114; RESP 20; O2SAT 100
== END 2024-10-31 02:23 | disposition short-term general hospital (02) ==
LOC: ANHED 20:50 → ANHICU 23:03
PROVIDERS: Emergency Medicine; Physician Assistant; Emergency Provider Preventive Medicine Aerospace Medicine; PCP Internal Medicine
DX: I46.9 Cardiac arrest, cause unspecified (principal); I49.01 Ventricular fibrillation; E87.6 Hypokalemia; E83.42 Hypomagnesemia; I47.20 Ventricular tachycardia, unspecified; F17.210 Nicotine dependence, cigarettes, uncomplicated; F41.9 Anxiety disorder, unspecified; F32.A Depression, unspecified
CPT/HCPCS: 36415; 71045; 74176; 80053; 80307; 81001; 81025; 83690; 83735; 85025; 85610; 85730; 86850; 86900; 86901; 87086; 92950; 93005; 96361; 96365; 96366; 96368; 96375; 99285; J0171; J0295; J0330; J0612; J1885; J2060; J2405; J3475; J3480; J7030; J7040

== ENCOUNTER 2025-01-08 06:59 | Inpatient (IN) | payer OTHER, SELFPAY ==
[2025-01-08] VITALS (13 sets, daily range): BP systolic 110–130; BP diastolic 69–93; PULSE 67–109; RESP 10–27; TEMP 36.3–36.7; O2SAT 98–100; BMI 21.3
--- NOTE | ~2025-01-08 | CT_ITS ---
CTA chest PE abdomen pel Ordering provider: Braulio Wright MD History: . shortness of breath, chest pain, nausea, ab px . Comparison: October 30, 2024. Technique: CT angiogram chest was performed following timed intravenous injection of contrast. Thin s lice axial images and reformatted coronal images were obtained. Three dimensional reformatted images of the chest were also obtained using a [employer] workstation. Also, CT of the abdomen and pelvis was pe rformed with IV contrast. . Automated exposure control and iterative reconstruction technique were e mployed. The dose-length product was 351.59 mGy-cm. 100 mL Omnipaque 350 was given IV. FINDINGS: CHEST: --PULMONARY ARTERIES: No pulmonary embolus. --VISUALIZED THORACIC INLET: Normal. --MEDIASTINUM: Aorta/coronary arteries: The thoracic aorta is normal. Heart/other: The heart is not enlarged. Lymph nodes: No mediastinal or hilar adenopathy. --LUNGS: No pulmonary nodules or masses. No infiltrates or effusions. No pneumothorax. --MUSCULOSKELETAL: Bones: Normal spine. Healing fractures in the right second and third ribs. Healing fracture in the st ernum. Superficial soft tissues: The superficial soft tissues are normal. ABDOMEN/PELVIS: --MUSCULOSKELETAL: Superficial soft tissues: The superficial soft tissues are normal. Bones: Normal spine. --UPPER ABDOMINAL ORGANS: Liver: Normal. Gallbladder: Normal. Spleen: Normal. Stomach/duodenum: Gastrostomy tube. Pancreas: Normal. Adrenals: Normal. Kidneys: Normal. --PELVIC ORGANS: The bladder is underfilled. No bladder stones. --BOWEL AND MESENTERY: Colon: No evidence of diverticulitis.. No evidence of appendicitis. Small Bowel: Normal. No obstruction. Peritoneum/mesentery: No free air or free fluid. No mesenteric lymphadenopathy. --RETROPERITONEUM: Normal aorta. No retroperitoneal lymphadenopathy. IMPRESSION: CHEST: 1. No evidence of pulmonary embolism. 2. No acute cardiopulmonary pathology. 3. Right healing rib fractures. Healing fracture in the standard none. ABDOMEN/PELVIS: 1. No evidence of appendicitis, diverticulitis or intestinal obstruction. Reviewed, dictated and finalized at location A.
--- NOTE | ~2025-01-08 | XR_ITS ---
XR chest 1V portable Ordering provider: Braulio Wright MD History: 34 years Female with . Nausea cough . Comparison: October 30, 2024 FINDINGS: MEDIASTINUM: The cardiac silhouette is not enlarged. LUNGS: No infiltrates, effusions or pneumothorax. OTHER: No free air under the diaphragm. IMPRESSION: No acute cardiopulmonary pathology. Reviewed, dictated and finalized at location A.
--- OUTSIDE RECORDS SUMMARY | 2025-01-08 07:03 | XMS_ITS | Encounter Summary ---
Author Organization [facility] Care Team Providers Care Pipe Insulator Name Role Phone Christian Merritt MD Primary Care Provider [phone] Mo Mitchell MD Primary Care Provider [phone] Neeta Ott RN Unavailable [phone] Encounter Details Date Type Department Care Team (Latest Contact Info) Description 12/06/2016 Orders Only MMG CLINCONV Provider, MD Serge [address] [place] [address] Social History Tobacco Use Types Packs/Day Years Used Date Smoking Tobacco: Never Assessed Comments Unknown Sex and Gender Information Value Date Recorded Sex Assigned at Not on file Legal Sex Female 8:06 PM TISSUE TECHNOLOGIST Gender Identity Not on file Sexual Orientation [...] Diagnoses Not on filedocumented in this encounter Additional Health Concerns Infection Onset Date Last Indicated Resolved Time Norovirus suspected 10/31/2024 10/31/2024 11/01/19 8:48 PM CDT COVID: Suspected 10/31/2024 10/31/2024 10/31/2024 10:38 AM CDT C. difficile suspected 11/01/2024 11/01/202411/01 2:50 PM CDT VRE 11/01/2024 11/01/2024 C. difficile suspected 11/09/2024 11/09/202411/09 12:40 PM CDT documented as of this encounter Care Teams Pipe Insulator Relationship Specialty Start Date End Date Christian Merritt MD PCP - General Emergency Medicine 06/10/22 10/30/24 Mo Mitchell MD [address] [place] [address] PCP - General Internal Medicine 10/31/24 Neeta Ott, RN [address] [address] [facility] Out[facility] Melon Packer 11/29/24 12/06/24 documented as of this encounter
--- OUTSIDE RECORDS SUMMARY | 2025-01-08 07:03 | XMS_ITS | Clinical Summary ---
Author Organization [facility] dipika [facility] Address [address] [place] [address] [place] [address] Care Team Providers Care Business Systems Developer Name Role Phone Unavailable Primary Care Provider Unavailabl e Social History Tobacco Use Types Packs/Day Years Used Date Smoking Tobacco: Never Assessed Comments Unknown Sex and Gender Information Value Date Recorded Sex Assigned at Not on file Legal Sex Female 3:59 PM CDT Gender Identity Not on file Sexual Orientation Not on file Plan of Treatment Health Maintenance Due Date Last Done Comments HPV VACCINES (2 - 3-dose series) 05/17/2007 04/19/20 07 HEPATITIS B VACCINES (1 of 3 - 19+ 3-dose series) 2010 HPV/Cotest (21-29) 02/03/2012 CERVICAL CANCER SCREENING 2021 HPV/Cotest (30-65) 2021 PAP SMEAR 2021 INFLUENZA VACCINE (#1) 2024 DTAP/TDAP/TD VACCINES (3 - Td or Tdap) 12/06/2026, 12/06/2016 Insurance [employer] [place]
--- OUTSIDE RECORDS SUMMARY | 2025-01-08 07:03 | XMS_ITS | Encounter Summary ---
Author Organization [facility] Facility Care Team Providers Care Bag Presser Name Role Phone Christian Merritt MD Primary Care Provider [phone] Mo Mitchell MD Primary Care Provider [phone] Neeta Ott RN Unavailable [phone] Encounter Details Date Type Department Care Team (Latest Contact Info) Description 12/09/2016 Orders Only MMG CLINCONV Provider, MD Serge [address] [place] [address] Social History Tobacco Use Types Packs/Day Years Used Date Smoking Tobacco: Never Assessed Comments Unknown Sex and Gender Information Value Date Recorded Sex Assigned at Not on file Legal Sex Female 8:06 PM STABLE HAND Gender Identity Not on file Sexual Orientation [...] documented as of this encounter Care Teams Bag Presser Relationship Specialty Start Date End Date Christian Merritt MD PCP - General Emergency Medicine 06/10/22 10/30/24 Mo Mitchell MD [address] [place] [address] PCP - General Internal Medicine 10/31/24 Neeta Ott, RN [address] [address] [facility] Outpatient Launch Check Out 11/29/24 12/06/24 documented as of this encounter
--- OUTSIDE RECORDS SUMMARY | 2025-01-08 07:04 | XMS_ITS | Clinical Summary ---
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 Name Role Phone Mo Mitchell MD Primary Care Provider [phone] Allergies Active Allergy Reactions Criticality Noted Date Comments Latex Hives Medium 02/27/2017 Medications famotidine (PEPCID) 20 mg tabletIndicatio ns:gastroesopha geal reflux disease Take 1 tablet (20 mg total) by mouth daily 7 tablet 06/12/20 22 Active megestroL (MEGACE) 20 mg tablet Take 1 tablet (20 mg total) by mouth 2 (two) times a day Active lactose-reduced food with fibr 0.06 gram-1.5 kcal/mL liquid Take by mouth A ctive ferrous sulfate 325 mg (65 mg of elemental iron) tabletIndicatio ns:Iron Deficiency Anemia Take 1 tablet (325 mg total) by mouth 2 (two) times a day Active folic acid (FOLVITE) 1 mg tabletIndicatio ns:Folate Deficiency Take 1 tablet by mouth daily Active thiamine (VITAMIN B1) 100 mg tabletIndicatio ns:Thiamine Deficiency Take 1 tablet by mouth daily Active busPIRone (BUSPAR) 15 mg tabletIndicatio ns:Generalized Anxiety Disorder Take 1 tablet (15 mg total) by mouth 3 (three) times a day 90 tablet 11/29/19 25 Active cyanocobalamin (Vitamin B-12) 1,000 mcg tabletIndicatio ns:Prevention of Vitamin B12 Deficiency Take 1 tablet (1,000 mcg total) by mouth daily 30 tablet 11/30/19 25 Active ergocalciferol (VITAMIN D) 50,000 unit capsuleIndicati ons:Vitamin D Deficiency Take 1 capsule (50,000 Units total) by mouth once a week 4 capsule 11/30/19 25 Active magnesium oxide (MAG-OX) 400 mg (241.3 mg elemental magnesium) tabletIndicatio ns:hypomagnesem ia Take 2 tablets (800 mg total) by mouth 2 (two) times a day 120 tablet 11/29/19 25 Active loperamide (IMODIUM) 0.133 mg/mL solutionIndicat ions:diarrhea Take 7.5 mL (1 mg total) by mouth 3 (three) times a day as needed for diarrhea 100 mL 11/29/19 25 Active multivit rkhyygfh-mowy-K A-calcium (THERA-M) 9 mg iron-400 mcg tabletIndicatio ns:Vitamin Deficiency Administer 1 tablet per feeding tube daily 30 tablet 11/30/19 25 Active nadoloL (CORGARD) 20 mg tabletIndicatio ns:hypertension Take 1 tablet (20 mg total) by mouth daily 30 tablet 11/30/19 25 Active nicotine (NICODERM CQ) 14 mgIndications:S moking Cessation Place 1 patch on the skin daily for 24 hours 30 patch 11/30/19 25 Active OLANZapine (ZyPREXA) 5 mg tabletIndicatio ns:Depression Treatment Adjunct Take 1 tablet (5 mg total) by mouth nightly 30 tablet 11/29/19 25 Active naloxone (NARCAN) 4 mg/actuation spray,non-aeros olIndications:O pioid Toxicity Administer 1 spray into affected nostril(s) as needed for opioid reversal Call 911. Administer a single spray in one nostril. Repeat every 3 minutes as needed if no or minimal response. 2 each 11/29/19 25 Active oxyCODONE (ROXICODONE) 5 mg immediate release tabletIndicatio ns:Pain Take 5 mg by mouth every 8 (eight) hours as needed for pain. Indications: pain Active rivaroxaban (XARELTO) 20 mg tablet Take 1 tablet (20 mg total) by mouth daily with dinner 30 tablet 5 12/22/19 25 Active aspirin 81 mg capsuleIndicati ons:myocardial infarction prevention Take 1 tablet by mouth daily. 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 Indications: treatment to prevent a heart attack Active cefadroxil (DURICEF) 500 mg capsuleIndicati ons:Other (complete free text reason below),bacterem ia; endocarditis Take 2 capsules (1,000 mg total) by mouth 2 (two) times a day for 28 days 112 capsule 12/28/19 25 025 Active acetaminophen 500 mg capsuleIndicati ons:Pain Take 2 capsules (1,000 mg total) by mouth every 6 (six) hours for 14 days 56 tablet 11/29/19 25 025 apixaban (ELIQUIS) 5 mg tabletIndicatio ns:LV thrombus Take 1 tablet (5 mg total) by mouth every 12 (twelve) hours 60 tablet 11/29/19 25 025 Discontinu ed(Patient Reported) cefadroxil (DURICEF) 500 mg capsuleIndicati ons:Other (complete free text reason below),bacterem ia; endocarditis Take 2 capsules (1,000 mg total) by mouth 2 (two) times a day 116 capsule 11/29/19 25 025 Discontinu ed(Reorder ) methocarbamoL (ROBAXIN) 750 mg tabletIndicatio ns:Muscle Spasm Take 1 tablet (750 mg total) by mouth 4 (four) times a day 120 tablet 11/29/19 25 025 simethicone (MYLICON) 80 mg chewable tabletIndicatio ns:Flatulence Take 1 tablet (80 mg total) by mouth 2 (two) times a day as needed for flatulence 60 tablet 11/29/19 25 025 potassium chloride (KAYCIEL) solution 20 mEq/15 mL Administer per tube 15 mL (20 mEq total) 3 (three) times a day for 7 days Dilute in 50-100 ml of water prior to administration 315 mL 12/28/19 25 025 Discontinu ed(Error) potassium chloride (KLOR-CON) 20 mEq packet Administer via G tube. Dissolve 1 packet in at least 4 ounces (120 mL) of cold water or other beverage prior to administration every 8 hours. 21 packet 12/28/19 25 025 Discontinu ed(Alterna te therapy) Active Problems Problem Noted Date Diagnosed Date MSSA bacteremia 11/28/2024 Assessment & Plan (12/27/2024 1:23 PM CDT): - S/p 2 doses of IV dalbavancin, now on oral cefadroxil. She is tolerating antibiotics well without increase in her chronic GI symptoms. She has had 2 episodes of low grade fever and rigors since hospital discharge with last episode 1 week ago. She is afebrile today in clinic and feels well. Has scheduled follow up with cardiology and cardiac surgery later this month along with repeat echo. - Continue cefadroxil 1000 mg per G tube BID until next ID follow up in 4 weeks. At that visit will review cardiology notes and repeat echo to determine if additional antibiotics are needed. - Given reports of fever and rigors will get blood cultures x 2 along with CBC and CMP. If blood cultures positive she will be directed to the ED for evaluation. - Discussed with patient the rational for treatment, culture results, risk of recurrent infection, signs/symptoms of recurrent infection, and to contact ID clinic with any questions or concerns Torsades de pointes 10/31/2024 Severe protein-calorie malnutrition 10/31/2024 Hypokalemia 06/11/2022 Numbness of left foot 06/11/2022 Tobacco dependence 06/11/2022 Marijuana smoker 06/11/2022 Left foot drop 06/10/2022 Thrombocytopenia Encounters Date Type Department Care Team Description 01/01/2025 2:10 PM CDT - 01/01/2025 11:59 PM CDT Hospital Encounter [facility] [address] [place] [address] Discharge Disposition: Discharge to home or self care 01/01/2025 2:00 PM CDT Home Care Visit [facility] [address] [place] [address] Nayely Pedroza, BRITTANIE SN HOME VISIT 01/01/2025 Telephone [facility] Infectious Diseases [address] [place] [address] Sidney Gould Jr., RN 12/31/2024 Telephone [facility] Cardiology [address] 8th [place] [address] [place] [address] Nani eMlchor, BRAXTON 12/31/2024 Orders Only [facility] Infectious Diseases [address] [place] [address] Dorothea Stephen, BRAXTON 12/28/2024 11:00 AM CDT Home Care Visit [address] [place] [address] Nayely Pedroza, RN SN HOME VISIT 12/27/2024 2:00 PM CDT Home Care Visit [address] [place] [address] Thang Solorzano, PT PT DISCIPLINE DISCHARGE 12/27/2024 9:13 AM CDT - 12/27/2024 11:59 PM CDT Hospital Encounter [facility] [address] [place] [address] Discharge Disposition: Discharge to home or self care 12/27/2024 8:40 AM CDT Office Visit [facility] Infectious Diseases [address] [place] [phone] Dorothea Stephen, BRAXTON MSSA bacteremia (Primary Dx); Encounter for screening examination for sexually transmitted disease 12/27/2024 Telephone [facility] Infectious Diseases [address] [place] [phone] Dorothea Stephen, BRAXTON 12/21/2024 2:00 PM CDT Home Care Visit [address] [place] [address] Thang Solorzano, PT PT HOME VISIT 12/21/2024 11:30 AM CDT Home Care Visit [address] [place] [address] Nayely Pedroza, RN SN HOME VISIT 12/21/2024 Orders Only [facility] Cardiology [address] [facility] 8th Floor [address] [place] [phone] Nani Melchor, BRAXTON 12/19/2024 11:00 AM CDT Home Care Visit [address] [place] [address] Thang Solorzano, PT PT HOME VISIT 12/19/2024 Home Care Visit [address] [place] [address] Thang Solorzano, PT CASE COMMUNICATION 12/13/2024 10:45 AM CDT Home Care Visit [address] [place] [address] Khushboo Jarvis, PT PT HOME VISIT 12/11/2024 2:30 PM CDT Home Care Visit [address] [place] [address] Khushboo Jarvis, PT PT HOME VISIT 12/11/2024 1:00 PM CDT Home Care Visit [address] [place] [address] Nayely Pedroza, RN SN HOME VISIT 12/07/2024 SHOP/CHAP Subsequent Outreach [facility] OP CASE MANAGEMENT [address] [place] [address] Neeta Ott RN 12/06/2024 12:30 PM CDT Home Care Visit [address] [place] [address] Nayely Pedroza, RN SN HOME VISIT 12/06/2024 11:00 AM CDT Home Care Visit [address] [place] [address] Isabelle Campbell, OT OT INITIAL EVALUATION 12/05/2024 SHOP/CHAP Subsequent Outreach [facility] OP CASE MANAGEMENT [address] [place] [address] Neeta Ott RN 12/04/2024 SHOP/CHAP Subsequent Outreach [facility] OP CASE MANAGEMENT 1 [facility] [place] [address] Neeta Ott RN 12/04/2024 Home Care Visit [address] [place] [address] Nayely Pedroza, BRITTANIE CARE CONFERENCE 12/03/2024 1:10 PM CDT Telemedicine [facility] [address] [place] [address] [place] [address] Yamilex Mathew, BRAXTON Torsades de pointes (HCC) (Primary Dx); [facility] bacteremia 12/03/2024 10:00 AM CDT Home Care Visit [address] [place] [address] Thang Solorzano, PT PT INITIAL EVALUATION 12/03/2024 Home Care Visit [address] [place] [address] Billy Zarco RN TELEPHONE ENCOUNTER 12/03/2024 Home Care Visit [address] [place] [address] Thang Solorzano, PT TELEPHONE ENCOUNTER 12/01/2024 12:00 PM CDT Home Care Visit [place] [address] [address] [place] [address] Billy Zarco, BRITTANIE SN OASIS START OF CARE 12/01/2024 Plan of Care Documentation [address] [place] [address] 11/30/2024 Orders Only [facility] Cardiothoracic Surgery [facility] [facility] 8th Floor [address] [address] [place] [address] Lee Elena MD Mass of left cardiac ventricle (Primary Dx) 11/29/2024 Telephone [facility] Home Care Services [address] [place] [address] Dora Sandra 11/29/2024 Orders Only Internal Medicine Alex Bailey MD 11/29/2024 SHOP/CHAP Initial Outreach [facility] OP CASE MANAGEMENT [address] [place] [address] Neeta Ott RN 11/29/2024 SHOP/CHAP Initial Eligibility Review [facility] OP CASE MANAGEMENT [address] [place] [address] Neeta Ott RN 11/28/2024 Home Care Visit [facility] Home Health [place] [address] [address] [place] [address] Hortensia Valentino RN SN TRIAGE ENCOUNTER 11/28/2024 Orders Only [facility] Cardiothoracic Surgery [address] [facility] 8th Floor [address] Room [address] [phone] Bo Fried MD MSSA bacteremia (Primary Dx); Thrombocytopenia 11/23/2024 Telephone [facility] Home Care Services [address] [place] [address] Dora Sandra 11/14/2024 1:40 PM CDT Anesthesia Event [facility] [address] [place] [phone] Rudy Licona MD 11/05/2024 Results Follow-Up Critical Care Medicine Michaela Giordano MD Basic metabolic panel, Basic metabolic panel, eGFR, Additional followed-up results: 32 10/31/2024 2:44 AM CDT - 11/28/2024 3:29 PM CDT Hospital Encounter [address] [phone] Angela Ramirez MD Vazquez Guillamet, MD Arnulfo Beyer, MD Kassy Rae, MD Leo Killian Lyndon K., MD Torsades de pointes (HCC) (Primary Dx); Cardiac arrest (HCC); Anorexia; Electrolyte abnormality; Acute pain [R52]; Painful respiration [R07.1]; Costochondritis [M94.0]; Idiopathic peripheral neuropathy [G60.9]; MSSA bacteremia Discharge Disposition: Discharge to home or self care from Last 3 Months Immunizations Immunization Administration Dates Next Due DTaP 12/06/2016 HPV, Quadrivalent 04/19/2007 Td, adsorbed 05/10/2005 Tdap 12/06/2016 Surgical History Surgery Date Site/Laterality Comments US ABDOMEN COMPLETE W LIVER DOPPLER (C) 11/03/2024 R ight Medical History Medical History Date Comments Mitral valve prolapse Social History Tobacco Use Types Packs/Day Years Used Date Smoking Tobacco: Every Day Cigarettes Smokeless Tobacco: Never Tobacco Cessation:Ready to Q uit: No; Counseling Given: No OASIS D0700: Social Isolation Answer Da te Recorded Frequency of experiencing loneliness or isolatio n Never 12/01/2024 OASIS A1250: Transportation Answer Date Recorded Lack of Transportation (Medical) No 12/01/2024 Lack of Transportation (Non-Medical) No 12/01/2024 Patient Unable or Declines to Respond No 12/01/2024 OASIS B1300: Health Literacy Answer Garrett e Recorded Frequency of needing help to read materials from doctor or pharmacy Sometimes 12/01/2024 [facility] Utilities Answer Date Recorded In the past 12 months has e [employer] gas, oil, or water [employer] threatened to shut off services in your home? No 11/29/2024 Social Connection and Isolat ion Panel [NHANES] Answer Date Recorded In a typical week, how many times do you talk on the phone with family, friends, or neighbors? More than three times a week 11/29/2024 How often do you get togethe r with friends or relatives? More than three times a week 11/29/2024 How often do you attend chur ch or pentecostalism services? Never 11/29/2024 Do you belong to any clubs o r organizations such as hindu groups, unions, fraternal or athletic groups, or school groups? No 11/29/2024 How often do you attend meet ings of the clubs or organizations you belong to? Never 11/29/2024 Are you , , di vorced, , never , or living with a partner? Living with partner 11/29/2024 AUDIT-C Answer Date Recorded Q1: How often do you have a drink containing alc ohol? Monthly or less 06/10/2022 Average Number of Drinks Not on file 022 Q3: How often do you have si x or more drinks on one occasion? Never 06/10/2022 Overall Financial Resource Strain (CARDIA) Answe r Date Recorded How hard is it for you to pa y for the very basics like food, housing, medical care, and heating? Not very hard 11/29/2024 Hunger Vital Sign Answer Date Recorded Within the past 12 months, y ou worried that your food would run out before you got the money to buy more. Never true 11/30/19 25 Within the past 12 months, t he food you bought just didn't last and you didn't have money to get more. Never true 11/29/2024 PRAPARE - Transportation Answer Date Re corded In the past 12 months, has l ack of transportation kept you from medical appointments or from getting medications? No 02/2025 In the past 12 months, has l ack of transportation kept you from meetings, work, or from getting things needed for daily living? No 11/29/2024 Housing Stability Vital Sign Answer Garrett e Recorded In the last 12 months, was t here a time when you were not able to pay the mortgage or rent on time? No 11/29/2024 In the past 12 months, how m any times have you moved where you were living? 0 11/29/2024 At any time in the past 12 m [facility], were you homeless or living in a residential (including now)? No 11/29/2024 Personal Safety Answer Date Recorded Have you ever been in or are you currently in a harmful physical or emotional relationship or is someone making you feel afraid or unsafe? Denies 10/31/2024 Comments No Sex and Gender Information Value Date Recorded Sex Assigned at Not on file Legal Sex Female 8:06 PM [employer] Gender Identity Not on file Sexual Orientation Not on file Obstetrics History Last Filed Vital Signs Vital Sign Reading Time Taken Comments Blood Pressure 106/68 01/01/2025 2:20 PM CDT Pulse 72 01/01/2025 2:20 PM CDT Temperature 37 C (98.6 F) 01/01/2025 2:20 PM CDT Respiratory Rate 18 01/01/2025 2:20 PM CDT Oxygen Saturation 93% 01/01/2025 2:20 PM CDT Inhaled Oxygen Concentration - - Weight 46.5 kg (102 lb 9.6 oz) 12/27/2024 8:26 A M CDT Height 154.9 cm (5' 0.98) 12/27/2024 8:26 AM CD T Body Mass Index 19.4 12/27/2024 8:26 AM CDT Plan of Treatment Health Maintenance Due Date Last Done Comments Depression Screening 1991 Varicella Vaccines (1 of 2 - 13+ 2-dose series) 02/03/2004 HPV Vaccines (2 - 3-dose series) 05/17/2007 04/19/20 07 Hepatitis B Screening 2009 Regular Well Visit/Exam 18-64 2009 Pneumococcal vaccine <65 (1 of 2 - PCV) 2010 Zoster Vaccine (1 of 2) 2010 Cervical Cancer Screening 09/14/2017 09/14/2016 Influenza Vaccine (Season Ended) 2025 DTaP/Tdap/Td Vaccine (3 - Td or Tdap) 12/06/2026 12/06/2016, 12/06/2016, 05/10/2005 Hepatitis C Screening Completed 11/03/2024, 017 Procedures Procedure Name Priority Date/Time Associated Diagnosis Comments EGFR Routine 01/01/2025 2:10 PM CDT BASIC METABOLIC PANEL Routine 01/01/2025 2:10 PM CDT MAGNESIUM Routine 12/27/2024 9:13 AM CDT MSSA bacteremia EGFR Routine 12/27/2024 9:13 AM CDT MSSA bacteremia DIFFERENTIAL AUTO Routine 12/27/2024 9:1 3 AM CDT MSSA bacteremia GLUCOSE, RANDOM (OUTREACH) Routine 12/27/2024 9:13 AM CDT MSSA bacteremia COMPREHENSIVE METABOLIC PANEL WITHOUT GLUCOSE (OUTREACH) Routine 12/27/2024 9:13 AM CDT MSSA bacteremia CBC WITH AUTO DIFFERENTIAL Routine 12/27/2024 9:13 AM CDT MSSA bacteremia COMPREHENSIVE METABOLIC PANEL (OUTREACH) Routine 12/27/2024 9:13 AM CDT MSSA bacteremia BLOOD CULTURE Routine 12/27/2024 9:05 AM CDT MSSA bacteremia BLOOD CULTURE Routine 12/27/2024 9:05 AM CDT MSSA bacteremia CYSTATIN C Routine 11/28/2024 10:45 AM CDT VITAMIN D 25 HYDROXY Routine 11/27/2024 9:44 PM CDT EGFR Routine 11/27/2024 9:44 PM CDT DIFFERENTIAL AUTO Routine 11/27/2024 9:4 4 PM CDT PROTIME-INR Routine 11/27/2024 9:44 PM CDT PHOSPHORUS Routine 11/27/2024 9:44 PM CDT MAGNESIUM Routine 11/27/2024 9:44 PM CDT HEPATIC FUNCTION PANEL Routine 9:44 PM CDT CBC WITH AUTO DIFFERENTIAL Routine 11/27/2024 9:44 PM CDT BASIC METABOLIC PANEL Routine 11/27/2024 9:44 PM CDT EGFR Routine 11/26/2024 9:38 PM CDT DIFFERENTIAL AUTO Routine 11/26/2024 9:3 8 PM CDT PROTIME-INR Routine 11/26/2024 9:38 PM CDT PHOSPHORUS Routine 11/26/2024 9:38 PM CDT MAGNESIUM Routine 11/26/2024 9:38 PM CDT HEPATIC FUNCTION PANEL Routine 9:38 PM CDT CBC WITH AUTO DIFFERENTIAL Routine 11/26/2024 9:38 PM CDT BASIC METABOLIC PANEL Routine 11/26/2024 9:38 PM CDT TRANSTHORACIC ECHO (TTE) LIMITED/FOLLOW UP W LTD DOPPLER/CF W CONTRAST Routine 11/26/2024 1:54 PM CDT POCT GLUCOSE DEVICE Routine 11/26/2024 7 :38 AM CDT EGFR Routine 11/25/2024 9:19 PM CDT DIFFERENTIAL AUTO Routine 11/25/2024 9:1 9 PM CDT PROTIME-INR Routine 11/25/2024 9:19 PM CDT PHOSPHORUS Routine 11/25/2024 9:19 PM CDT MAGNESIUM Routine 11/25/2024 9:19 PM CDT HEPATIC FUNCTION PANEL Routine 9:19 PM CDT CBC WITH AUTO DIFFERENTIAL Routine 11/25/2024 9:19 PM CDT BASIC METABOLIC PANEL Routine 11/25/2024 9:19 PM CDT EGFR Routine 11/24/2024 9:18 PM CDT DIFFERENTIAL AUTO Routine 11/24/2024 9:1 8 PM CDT PROTIME-INR Routine 11/24/2024 9:18 PM CDT PHOSPHORUS Routine 11/24/2024 9:18 PM CDT MAGNESIUM Routine 11/24/2024 9:18 PM CDT HEPATIC FUNCTION PANEL Routine 9:18 PM CDT CBC WITH AUTO DIFFERENTIAL Routine 11/24/2024 9:18 PM CDT BASIC METABOLIC PANEL Routine 11/24/2024 9:18 PM CDT POCT GLUCOSE DEVICE Routine 11/24/2024 7 :49 PM CDT ECG 12-LEAD Routine 11/24/2024 7:01 AM CDT EGFR Routine 11/23/2024 10:10 PM CDT DIFFERENTIAL AUTO Routine 11/23/2024 10: 10 PM CDT PROTIME-INR Routine 11/23/2024 10:10 PM CDT PHOSPHORUS Routine 11/23/2024 10:10 PM CDT MAGNESIUM Routine 11/23/2024 10:10 PM CDT HEPATIC FUNCTION PANEL Routine 10:10 PM CDT CBC WITH AUTO DIFFERENTIAL Routine 11/23/2024 10:10 PM CDT BASIC METABOLIC PANEL Routine 11/23/2024 10:10 PM CDT POCT GLUCOSE DEVICE Routine 11/23/2024 9 :14 PM CDT ECG 12-LEAD Routine 11/23/2024 6:23 PM CDT EGFR Routine 11/22/2024 9:37 PM CDT DIFFERENTIAL AUTO Routine 11/22/2024 9:3 7 PM CDT PROTIME-INR Routine 11/22/2024 9:37 PM CDT PHOSPHORUS Routine 11/22/2024 9:37 PM CDT MAGNESIUM Routine 11/22/2024 9:37 PM CDT HEPATIC FUNCTION PANEL Routine 9:37 PM CDT CBC WITH AUTO DIFFERENTIAL Routine 11/22/2024 9:37 PM CDT BASIC METABOLIC PANEL Routine 11/22/2024 9:37 PM CDT EGFR Routine 11/21/2024 10:49 PM CDT DIFFERENTIAL AUTO Routine 11/21/2024 10: 49 PM CDT PROTIME-INR Routine 11/21/2024 10:49 PM CDT PHOSPHORUS Routine 11/21/2024 10:49 PM CDT MAGNESIUM Routine 11/21/2024 10:49 PM CDT HEPATIC FUNCTION PANEL Routine 10:49 PM CDT CBC WITH AUTO DIFFERENTIAL Routine 11/21/2024 10:49 PM CDT BASIC METABOLIC PANEL Routine 11/21/2024 10:49 PM CDT POTASSIUM, WHOLE BLOOD STAT 10:45 PM CDT EGFR Routine 11/20/2024 7:07 PM CDT DIFFERENTIAL AUTO Routine 11/20/2024 7:0 7 PM CDT APTT STAT 11/20/2024 7:07 PM CDT PROTIME-INR Routine 11/20/2024 7:07 PM CDT PHOSPHORUS Routine 11/20/2024 7:07 PM CDT MAGNESIUM Routine 11/20/2024 7:07 PM CDT HEPATIC FUNCTION PANEL Routine 7:07 PM CDT CBC WITH AUTO DIFFERENTIAL Routine 11/20/2024 7:07 PM CDT BASIC METABOLIC PANEL Routine 11/20/2024 7:07 PM CDT ECG 12-LEAD Routine 11/20/2024 1:20 PM CDT GENOMICS TRACKING ORDER Routine 11/20/2024 10:37 AM CDT GENOMICS (LGM WASHU) Routine 11/20/2024 12:00 AM CDT EGFR Routine 11/19/2024 8:20 PM CDT DIFFERENTIAL AUTO Routine 11/19/2024 8:2 0 PM CDT PROTIME-INR Routine 11/19/2024 8:20 PM CDT PHOSPHORUS Routine 11/19/2024 8:20 PM CDT MAGNESIUM Routine 11/19/2024 8:20 PM CDT HEPATIC FUNCTION PANEL Routine 8:20 PM CDT CBC WITH AUTO DIFFERENTIAL Routine 11/19/2024 8:20 PM CDT BASIC METABOLIC PANEL Routine 11/19/2024 8:20 PM CDT POCT GLUCOSE DEVICE Routine 11/19/2024 7 :53 AM CDT DIFFERENTIAL AUTO Routine 11/18/2024 9:5 3 PM CDT PROTIME-INR Routine 11/18/2024 9:53 PM CDT CBC WITH AUTO DIFFERENTIAL Routine 11/18/2024 9:53 PM CDT BLOOD CULTURE Routine 11/18/2024 9:53 PM CDT EGFR Routine 11/18/2024 3:57 PM CDT PHOSPHORUS Routine 11/18/2024 3:57 PM CDT MAGNESIUM Routine 11/18/2024 3:57 PM CDT HEPATIC FUNCTION PANEL Routine 3:57 PM CDT BASIC METABOLIC PANEL Routine 11/18/2024 3:57 PM CDT ECG 12-LEAD Routine 11/18/2024 1:40 PM CDT POCT GLUCOSE DEVICE Routine 11/18/2024 1 2:02 AM CDT EGFR Timed 11/17/2024 10:42 PM CDT DIFFERENTIAL AUTO Routine 11/17/2024 10: 42 PM CDT PHOSPHORUS Timed 11/17/2024 10:42 PM CDT MAGNESIUM Timed 11/17/2024 10:42 PM CDT BASIC METABOLIC PANEL Timed 11/17/2024 10:42 PM CDT PROTIME-INR Routine 11/17/2024 10:42 PM CDT HEPATIC FUNCTION PANEL Routine 10:42 PM CDT CBC WITH AUTO DIFFERENTIAL Routine 11/17/2024 10:42 PM CDT BLOOD CULTURE Routine 11/17/2024 10:42 PM CDT POCT GLUCOSE DEVICE Routine 11/17/2024 7 :38 PM CDT POCT GLUCOSE DEVICE Routine 11/17/2024 3 :39 PM CDT POCT GLUCOSE DEVICE Routine 11/17/2024 1 1:25 AM CDT POCT GLUCOSE DEVICE Routine 11/17/2024 7 :43 AM CDT POCT GLUCOSE DEVICE Routine 11/17/2024 5 :04 AM CDT POCT GLUCOSE DEVICE Routine 11/17/2024 1 2:06 AM CDT EGFR Timed 11/16/2024 9:38 PM CDT DIFFERENTIAL AUTO Routine 11/16/2024 9:3 8 PM CDT PHOSPHORUS Timed 11/16/2024 9:38 PM CDT MAGNESIUM Timed 11/16/2024 9:38 PM CDT BASIC METABOLIC PANEL Timed 11/16/2024 9:38 PM CDT PROTIME-INR Routine 11/16/2024 9:38 PM CDT HEPATIC FUNCTION PANEL Routine 9:38 PM CDT CBC WITH AUTO DIFFERENTIAL Routine 11/16/2024 9:38 PM CDT BLOOD CULTURE Routine 11/16/2024 9:38 PM CDT BLOOD CULTURE Routine 11/16/2024 9:28 PM CDT POCT GLUCOSE DEVICE Routine 11/16/2024 8 :10 PM CDT POCT GLUCOSE DEVICE Routine 11/16/2024 6 :32 PM CDT RADIOLOGY EVENT IP Routine 11/16/2024 5:53 PM CDT MRI CARDIAC M&FUNC W WO CONTRAST IP Routine 11/16/2024 5:53 PM CDT HEMOGLOBIN AND HEMATOCRIT Routine 11/16/2024 11:59 AM CDT EGFR Timed 11/16/2024 11:58 AM CDT CALCIUM, IONIZED Routine 11/16/2024 11:5 8 AM CDT PHOSPHORUS Timed 11/16/2024 11:58 AM CDT MAGNESIUM Timed 11/16/2024 11:58 AM CDT BASIC METABOLIC PANEL Timed 11/16/2024 11:58 AM CDT POCT GLUCOSE DEVICE Routine 11/16/2024 1 1:43 AM CDT POCT GLUCOSE DEVICE Routine 11/16/2024 7 :55 AM CDT ECG 12-LEAD Routine 11/16/2024 7:09 AM CDT POCT GLUCOSE DEVICE Routine 11/16/2024 4 :21 AM CDT TRANSFUSE RED BLOOD CELLS Timed 11/16/2024 3:38 AM CDT TYPE AND SCREEN Timed 11/16/2024 1:45 AM CDT POCT GLUCOSE DEVICE Routine 11/16/2024 1 2:24 AM CDT PREPARE RBC Timed 11/15/2024 10:35 PM CDT EGFR Timed 11/15/2024 8:16 PM CDT DIFFERENTIAL AUTO Routine 11/15/2024 8:1 6 PM CDT PHOSPHORUS Timed 11/15/2024 8:16 PM CDT MAGNESIUM Timed 11/15/2024 8:16 PM CDT BASIC METABOLIC PANEL Timed 11/15/2024 8:16 PM CDT PROTIME-INR Routine 11/15/2024 8:16 PM CDT HEPATIC FUNCTION PANEL Routine 8:16 PM CDT CBC WITH AUTO DIFFERENTIAL Routine 11/15/2024 8:16 PM CDT BLOOD CULTURE Routine 11/15/2024 8:16 PM CDT POCT GLUCOSE DEVICE Routine 11/15/2024 7 :40 PM CDT POCT GLUCOSE DEVICE Routine 11/15/2024 5 :11 PM CDT POCT GLUCOSE DEVICE Routine 11/15/2024 1 1:19 AM CDT POCT GLUCOSE DEVICE Routine 11/15/2024 8 :44 AM CDT POCT GLUCOSE DEVICE Routine 11/15/2024 4 :01 AM CDT POCT GLUCOSE DEVICE Routine 11/15/2024 1 2:15 AM CDT ECG 12-LEAD Routine 11/14/2024 10:27 PM CDT N. GONORRHOEAE/C. TRACHOMATIS AMPLIFICATION Routine 11/14/2024 10:01 PM CDT EGFR Timed 11/14/2024 9:16 PM CDT DIFFERENTIAL AUTO Routine 11/14/2024 9:1 6 PM CDT URIC ACID Routine 11/14/2024 9:16 PM CDT FOLATE Timed 11/14/2024 9:16 PM CDT VITAMIN B12 Timed 11/14/2024 9:16 PM CDT PHOSPHORUS Timed 11/14/2024 9:16 PM CDT MAGNESIUM Timed 11/14/2024 9:16 PM CDT BASIC METABOLIC PANEL Timed 11/14/2024 9:16 PM CDT PROTIME-INR Routine 11/14/2024 9:16 PM CDT HEPATIC FUNCTION PANEL Routine 9:16 PM CDT CBC WITH AUTO DIFFERENTIAL Routine 11/14/2024 9:16 PM CDT BLOOD CULTURE Routine 11/14/2024 9:16 PM CDT BLOOD CULTURE Routine 11/14/2024 9:16 PM CDT POCT GLUCOSE DEVICE Routine 11/14/2024 7 :37 PM CDT POCT GLUCOSE DEVICE Routine 11/14/2024 4 :07 PM CDT TRANSESOPHAGEAL ECHO (MAXIMINO) W DOPPLER/CF WO CONTRAST Routine 11/14/2024 2:19 PM CDT AR AN PROCEDURE PLACEHOLDER Routine 11/14/2024 1:56 PM CDT AR AN ELECTIVE ENDOTRACHEAL AIRWAY Routine 11/14/2024 1:56 PM CDT POCT GLUCOSE DEVICE Routine 11/14/2024 1 2:33 PM CDT POCT GLUCOSE DEVICE Routine 11/14/2024 1 0:49 AM CDT POCT GLUCOSE DEVICE Routine 11/14/2024 7 :36 AM CDT POCT GLUCOSE DEVICE Routine 11/14/2024 4 :28 AM CDT BLOOD CULTURE Routine 11/14/2024 12:27 AM CDT BLOOD CULTURE Routine 11/14/2024 12:16 AM CDT POCT GLUCOSE DEVICE Routine 11/13/2024 1 1:28 PM CDT RETICULOCYTES Routine 11/13/2024 9:44 PM CDT EGFR Timed 11/13/2024 9:44 PM CDT DIFFERENTIAL AUTO Routine 11/13/2024 9:4 4 PM CDT PHOSPHORUS Timed 11/13/2024 9:44 PM CDT MAGNESIUM Timed 11/13/2024 9:44 PM CDT BASIC METABOLIC PANEL Timed 11/13/2024 9:44 PM CDT PROTIME-INR Routine 11/13/2024 9:44 PM CDT HEPATIC FUNCTION PANEL Routine 9:44 PM CDT CBC WITH AUTO DIFFERENTIAL Routine 11/13/2024 9:44 PM CDT POCT GLUCOSE DEVICE Routine 11/13/2024 7 :36 PM CDT POCT GLUCOSE DEVICE Routine 11/13/2024 5 :07 PM CDT MRI SPINE THORACIC LUMBAR W WO CONTRAST IP Routine 11/13/2024 3:51 PM CDT POCT GLUCOSE DEVICE Routine 11/13/2024 1 1:41 AM CDT POCT GLUCOSE DEVICE Routine 11/13/2024 7 :43 AM CDT POCT GLUCOSE DEVICE Routine 11/13/2024 4 :20 AM CDT POCT GLUCOSE DEVICE Routine 11/13/2024 1 :03 AM CDT EGFR Timed 11/12/2024 10:00 PM CDT DIFFERENTIAL AUTO Routine 11/12/2024 10: 00 PM CDT PHOSPHORUS Timed 11/12/2024 10:00 PM CDT MAGNESIUM Timed 11/12/2024 10:00 PM CDT BASIC METABOLIC PANEL Timed 11/12/2024 10:00 PM CDT PROTIME-INR Routine 11/12/2024 10:00 PM CDT HEPATIC FUNCTION PANEL Routine 10:00 PM CDT CBC WITH AUTO DIFFERENTIAL Routine 11/12/2024 10:00 PM CDT BLOOD CULTURE Routine 11/12/2024 10:00 PM CDT ECG 12-LEAD Routine 11/12/2024 9:35 PM CDT POCT GLUCOSE DEVICE Routine 11/12/2024 8 :23 PM CDT POCT GLUCOSE DEVICE Routine 11/12/2024 4 :17 PM CDT MRSA ONLY (STAPHYLOCOCCUS AUREUS) CULTURE Routine 11/12/2024 2:37 PM CDT RESPIRATORY PATHOGEN PANEL Routine 11/12/2024 2:37 PM CDT POCT GLUCOSE DEVICE Routine 11/12/2024 1 1:33 AM CDT XR CHEST 1 VIEW IP Routine 11/12/2024 11:33 AM CDT XR ORTHOPANTOGRAM/PANOREX IP Routine 11/12/2024 11:32 AM CDT POCT GLUCOSE DEVICE Routine 11/12/2024 7 :57 AM CDT POCT GLUCOSE DEVICE Routine 11/12/2024 4 :06 AM CDT POCT GLUCOSE DEVICE Routine 11/12/2024 1 2:16 AM CDT EGFR Timed 11/11/2024 10:12 PM CDT DIFFERENTIAL AUTO Routine 11/11/2024 10: 12 PM CDT PHOSPHORUS Timed 11/11/2024 10:12 PM CDT MAGNESIUM Timed 11/11/2024 10:12 PM CDT BASIC METABOLIC PANEL Timed 11/11/2024 10:12 PM CDT PROTIME-INR Routine 11/11/2024 10:12 PM CDT HEPATIC FUNCTION PANEL Routine 10:12 PM CDT CBC WITH AUTO DIFFERENTIAL Routine 11/11/2024 10:12 PM CDT BLOOD CULTURE Routine 11/11/2024 10:12 PM CDT BLOOD CULTURE Routine 11/11/2024 10:12 PM CDT POCT GLUCOSE DEVICE Routine 11/11/2024 8 :08 PM CDT POCT GLUCOSE DEVICE Routine 11/11/2024 4 :42 PM CDT POCT GLUCOSE DEVICE Routine 11/11/2024 1 2:11 PM CDT EGFR Timed 11/11/2024 10:41 AM CDT PHOSPHORUS Timed 11/11/2024 10:41 AM CDT MAGNESIUM Timed 11/11/2024 10:41 AM CDT BASIC METABOLIC PANEL Timed 11/11/2024 10:41 AM CDT POCT GLUCOSE DEVICE Routine 11/11/2024 9 :24 AM CDT POCT GLUCOSE DEVICE Routine 11/10/2024 1 1:50 PM CDT EGFR Timed 11/10/2024 9:24 PM CDT DIFFERENTIAL AUTO Routine 11/10/2024 9:2 4 PM CDT PHOSPHORUS Timed 11/10/2024 9:24 PM CDT MAGNESIUM Timed 11/10/2024 9:24 PM CDT BASIC METABOLIC PANEL Timed 11/10/2024 9:24 PM CDT PROTIME-INR Routine 11/10/2024 9:24 PM CDT HEPATIC FUNCTION PANEL Routine 9:24 PM CDT CBC WITH AUTO DIFFERENTIAL Routine 11/10/2024 9:24 PM CDT POCT GLUCOSE DEVICE Routine 11/10/2024 8 :06 PM CDT POCT GLUCOSE DEVICE Routine 11/10/2024 4 :37 PM CDT XR RIBS BILATERAL 4 OR MORE VIEWS W PA CHEST IP Routine 11/10/2024 4:21 PM CDT HEMOGLOBIN AND HEMATOCRIT Timed 11/10/2024 3:00 PM CDT BLOOD CULTURE Routine 11/10/2024 2:37 PM CDT BLOOD CULTURE Routine 11/10/2024 2:37 PM CDT EGFR Timed 11/10/2024 2:00 PM CDT PHOSPHORUS Timed 11/10/2024 2:00 PM CDT MAGNESIUM Timed 11/10/2024 2:00 PM CDT BASIC METABOLIC PANEL Timed 11/10/2024 2:00 PM CDT POCT GLUCOSE DEVICE Routine 11/10/2024 1 1:29 AM CDT TRANSFUSE RED BLOOD CELLS Timed 11/10/2024 11:11 AM CDT TYPE AND SCREEN Timed 11/10/2024 8:35 AM CDT PREPARE RBC Timed 11/10/2024 8:10 AM CDT POCT GLUCOSE DEVICE Routine 11/10/2024 7 :52 AM CDT EGFR Timed 11/10/2024 5:42 AM CDT HEMOGLOBIN AND HEMATOCRIT Timed 11/10/2024 5:42 AM CDT PHOSPHORUS Timed 11/10/2024 5:42 AM CDT MAGNESIUM Timed 11/10/2024 5:42 AM CDT BASIC METABOLIC PANEL Timed 11/10/2024 5:42 AM CDT POCT GLUCOSE DEVICE Routine 11/10/2024 4 :15 AM CDT POCT GLUCOSE DEVICE Routine 11/09/2024 1 0:17 PM CDT EGFR Timed 11/09/2024 10:09 PM CDT DIFFERENTIAL AUTO Routine 11/09/2024 10: 09 PM CDT PROTIME-INR Routine 11/09/2024 10:09 PM CDT HEPATIC FUNCTION PANEL Routine 10:09 PM CDT PHOSPHORUS Timed 11/09/2024 10:09 PM CDT MAGNESIUM Timed 11/09/2024 10:09 PM CDT BASIC METABOLIC PANEL Timed 11/09/2024 10:09 PM CDT CBC WITH AUTO DIFFERENTIAL Routine 11/09/2024 10:09 PM CDT POCT GLUCOSE DEVICE Routine 11/09/2024 6 :05 PM CDT POCT GLUCOSE DEVICE Routine 11/09/2024 5 :11 PM CDT EGFR Timed 11/09/2024 1:20 PM CDT DIFFERENTIAL AUTO Timed 11/09/2024 1:2 0 PM CDT CBC WITH AUTO DIFFERENTIAL Timed 11/09/2024 1:20 PM CDT PHOSPHORUS Timed 11/09/2024 1:20 PM CDT MAGNESIUM Timed 11/09/2024 1:20 PM CDT LACTATE Timed 11/09/2024 1:20 PM CDT HEPATIC FUNCTION PANEL Timed 1:20 PM CDT BASIC METABOLIC PANEL Timed 11/09/2024 1:20 PM CDT POCT GLUCOSE DEVICE Routine 11/09/2024 1 1:33 AM CDT POCT GLUCOSE DEVICE Routine 11/09/2024 7 :00 AM CDT C. DIFFICILE TESTING STAT 11/09/2024 5:53 AM CDT POCT GLUCOSE DEVICE Routine 11/09/2024 4 :41 AM CDT HEMOGLOBIN AND HEMATOCRIT STAT 11/09/2024 3:40 AM CDT INFLUENZA A/B, RSV, AND COVID-19 PCR Routine 11/09/2024 3:40 AM CDT XR CHEST 1 VIEW ED Urgent/IP Urgent 11/09/2024 2:18 AM CDT URINALYSIS, MICROSCOPIC ONLY STAT 11/09/2024 2:18 AM CDT URINE CULTURE STAT 11/09/2024 2:18 AM CDT URINALYSIS AND REFLEX TO MICROSCOPIC AND CULTURE STAT 11/09/2024 2:18 AM CDT ECG 12-LEAD STAT 11/09/2024 1:56 AM CDT BLOOD CULTURE Routine 11/09/2024 1:39 AM CDT LACTATE STAT 11/09/2024 1:30 AM CDT CBC WITHOUT DIFFERENTIAL Routine 11/09/2024 1:30 AM CDT PROTIME-INR Routine 11/09/2024 1:30 AM CDT BLOOD CULTURE Routine 11/09/2024 1:30 AM CDT POCT GLUCOSE DEVICE Routine 11/08/2024 1 1:56 PM CDT EGFR Timed 11/08/2024 10:32 PM CDT HEPATIC FUNCTION PANEL Timed 10:32 PM CDT PHOSPHORUS Timed 11/08/2024 10:32 PM CDT MAGNESIUM Timed 11/08/2024 10:32 PM CDT BASIC METABOLIC PANEL Timed 11/08/2024 10:32 PM CDT POCT GLUCOSE DEVICE Routine 11/08/2024 7 :33 PM CDT POCT GLUCOSE DEVICE Routine 11/08/2024 4 :40 PM CDT POCT GLUCOSE DEVICE Routine 11/08/2024 7 :51 AM CDT ECG 12-LEAD Routine 11/08/2024 5:56 AM CDT POCT GLUCOSE DEVICE Routine 11/08/2024 4 :16 AM CDT DIFFERENTIAL AUTO Routine 11/08/2024 3:4 5 AM CDT PROTIME-INR Routine 11/08/2024 3:45 AM CDT CBC WITHOUT DIFFERENTIAL Routine 11/08/2024 3:45 AM CDT POCT GLUCOSE DEVICE Routine 11/08/2024 1 :29 AM CDT EGFR Timed 11/07/2024 9:52 PM CDT HEPATIC FUNCTION PANEL Timed 9:52 PM CDT PHOSPHORUS Timed 11/07/2024 9:52 PM CDT MAGNESIUM Timed 11/07/2024 9:52 PM CDT BASIC METABOLIC PANEL Timed 11/07/2024 9:52 PM CDT POCT GLUCOSE DEVICE Routine 11/07/2024 7 :49 PM CDT POCT GLUCOSE DEVICE Routine 11/07/2024 4 :53 PM CDT POCT GLUCOSE DEVICE Routine 11/07/2024 1 1:13 AM CDT EGFR Timed 11/07/2024 10:19 AM CDT PHOSPHORUS Timed 11/07/2024 10:19 AM CDT MAGNESIUM Timed 11/07/2024 10:19 AM CDT BASIC METABOLIC PANEL Timed 11/07/2024 10:19 AM CDT POCT GLUCOSE DEVICE Routine 11/07/2024 7 :34 AM CDT HEPATIC FUNCTION PANEL Timed 4:47 AM CDT PROTIME-INR Routine 11/07/2024 4:47 AM CDT CBC WITHOUT DIFFERENTIAL Routine 11/07/2024 4:47 AM CDT POCT GLUCOSE DEVICE Routine 11/07/2024 4 :29 AM CDT EGFR Timed 11/06/2024 9:12 PM CDT PHOSPHORUS Timed 11/06/2024 9:12 PM CDT MAGNESIUM Timed 11/06/2024 9:12 PM CDT BASIC METABOLIC PANEL Timed 11/06/2024 9:12 PM CDT POCT GLUCOSE DEVICE Routine 11/06/2024 8 :41 PM CDT EGFR Timed 11/06/2024 3:51 PM CDT HEPATIC FUNCTION PANEL Timed 3:51 PM CDT PHOSPHORUS Timed 11/06/2024 3:51 PM CDT MAGNESIUM Timed 11/06/2024 3:51 PM CDT BASIC METABOLIC PANEL Timed 11/06/2024 3:51 PM CDT POCT GLUCOSE DEVICE Routine 11/06/2024 3 :50 PM CDT POCT GLUCOSE DEVICE Routine 11/06/2024 1 1:49 AM CDT POCT GLUCOSE DEVICE Routine 11/06/2024 7 :55 AM CDT EGFR Timed 11/06/2024 5:38 AM CDT HEPATIC FUNCTION PANEL Timed 5:38 AM CDT PROTIME-INR Routine 11/06/2024 5:38 AM CDT PHOSPHORUS Timed 11/06/2024 5:38 AM CDT MAGNESIUM Timed 11/06/2024 5:38 AM CDT BASIC METABOLIC PANEL Timed 11/06/2024 5:38 AM CDT CBC WITHOUT DIFFERENTIAL Routine 11/06/2024 5:38 AM CDT ECG 12-LEAD Routine 11/06/2024 4:42 AM CDT POCT GLUCOSE DEVICE Routine 11/06/2024 3 :46 AM CDT EGFR Timed 11/06/2024 12:39 AM CDT PHOSPHORUS Timed 11/06/2024 12:39 AM CDT MAGNESIUM Timed 11/06/2024 12:39 AM CDT BASIC METABOLIC PANEL Timed 11/06/2024 12:39 AM CDT POCT GLUCOSE DEVICE Routine 11/05/2024 1 1:37 PM CDT POCT GLUCOSE DEVICE Routine 11/05/2024 8 :03 PM CDT EGFR Timed 11/05/2024 3:44 PM CDT HEPATIC FUNCTION PANEL Timed 3:44 PM CDT PHOSPHORUS Timed 11/05/2024 3:44 PM CDT MAGNESIUM Timed 11/05/2024 3:44 PM CDT BASIC METABOLIC PANEL Timed 11/05/2024 3:44 PM CDT POCT GLUCOSE DEVICE Routine 11/05/2024 3 :43 PM CDT ECG 12-LEAD Routine 11/05/2024 12:04 PM CDT POCT GLUCOSE DEVICE Routine 11/05/2024 1 1:41 AM CDT POCT GLUCOSE DEVICE Routine 11/05/2024 7 :43 AM CDT ECG 12-LEAD Routine 11/05/2024 6:04 AM CDT CRP (ACUTE PHASE) Routine 11/05/2024 5:0 8 AM CDT EGFR Timed 11/05/2024 5:08 AM CDT PROTIME-INR Routine 11/05/2024 5:08 AM CDT PHOSPHORUS Timed 11/05/2024 5:08 AM CDT MAGNESIUM Timed 11/05/2024 5:08 AM CDT BASIC METABOLIC PANEL Timed 11/05/2024 5:08 AM CDT CBC WITHOUT DIFFERENTIAL Routine 11/05/2024 5:08 AM CDT HEPATIC FUNCTION PANEL Routine 5:08 AM CDT POCT GLUCOSE DEVICE Routine 11/05/2024 3 :53 AM CDT EGFR Timed 11/04/2024 11:44 PM CDT PHOSPHORUS Timed 11/04/2024 11:44 PM CDT MAGNESIUM Timed 11/04/2024 11:44 PM CDT BASIC METABOLIC PANEL Timed 11/04/2024 11:44 PM CDT POCT GLUCOSE DEVICE Routine 11/04/2024 1 1:41 PM CDT POCT GLUCOSE DEVICE Routine 11/04/2024 8 :01 PM CDT EGFR Timed 11/04/2024 3:43 PM CDT PROTIME-INR Timed 11/04/2024 3:43 PM CDT HEPATIC FUNCTION PANEL Timed 3:43 PM CDT PHOSPHORUS Timed 11/04/2024 3:43 PM CDT MAGNESIUM Timed 11/04/2024 3:43 PM CDT BASIC METABOLIC PANEL Timed 11/04/2024 3:43 PM CDT POCT GLUCOSE DEVICE Routine 11/04/2024 3 :42 PM CDT POCT GLUCOSE DEVICE Routine 11/04/2024 1 2:45 PM CDT POCT GLUCOSE DEVICE Routine 11/04/2024 1 1:47 AM CDT POCT GLUCOSE DEVICE Routine 11/04/2024 8 :06 AM CDT POCT GLUCOSE DEVICE Routine 11/04/2024 7 :48 AM CDT POCT GLUCOSE DEVICE Routine 11/04/2024 7 :04 AM CDT ECG 12-LEAD Routine 11/04/2024 6:32 AM CDT ACETAMINOPHEN LEVEL Routine 11/04/2024 6 :03 AM CDT EGFR Timed 11/04/2024 6:03 AM CDT PROTIME-INR Routine 11/04/2024 6:03 AM CDT PHOSPHORUS Timed 11/04/2024 6:03 AM CDT MAGNESIUM Timed 11/04/2024 6:03 AM CDT BASIC METABOLIC PANEL Timed 11/04/2024 6:03 AM CDT CBC WITHOUT DIFFERENTIAL Routine 11/04/2024 6:03 AM CDT HEPATIC FUNCTION PANEL Routine 6:03 AM CDT POCT GLUCOSE DEVICE Routine 11/04/2024 1 2:23 AM CDT EGFR Timed 11/04/2024 12:02 AM CDT PHOSPHORUS Timed 11/04/2024 12:02 AM CDT MAGNESIUM Timed 11/04/2024 12:02 AM CDT BASIC METABOLIC PANEL Timed 11/04/2024 12:02 AM CDT US ABDOMEN COMPLETE W LIVER DOPPLER (C) ED Urgent/IP Urgent 11/03/2024 10:33 PM CDT POCT GLUCOSE DEVICE Routine 11/03/2024 9 :01 PM CDT EGFR Timed 11/03/2024 4:10 PM CDT PHOSPHORUS Timed 11/03/2024 4:10 PM CDT MAGNESIUM Timed 11/03/2024 4:10 PM CDT BASIC METABOLIC PANEL Timed 11/03/2024 4:10 PM CDT PROTIME-INR Timed 11/03/2024 2:31 PM CDT SMOOTH MUSCLE ANTIBODY, QUALITATIVE Timed 11/03/2024 2:31 PM CDT MITOCHONDRIAL ANTIBODIES, QUALITATIVE Timed 11/03/2024 2:31 PM CDT KATEY QUALITATIVE WITH REFLEX TO KATEY QUANTITATIVE Timed 11/03/2024 2:31 PM CDT HEPATIC FUNCTION PANEL Timed 2:31 PM CDT HEPATITIS PANEL, ACUTE Routine 2:31 PM CDT ECG 12-LEAD Routine 11/03/2024 12:35 PM CDT IRON PROFILE W/ IBC Timed 11/03/2024 8 :33 AM CDT FERRITIN Timed 11/03/2024 8:33 AM CDT ACETAMINOPHEN LEVEL Timed 11/03/2024 8 :33 AM CDT CREATINE KINASE (CK), TOTAL Timed 11/03/2024 8:33 AM CDT EGFR Timed 11/03/2024 8:33 AM CDT HEPATIC FUNCTION PANEL Routine 8:33 AM CDT CBC WITHOUT DIFFERENTIAL Routine 11/03/2024 8:33 AM CDT PHOSPHORUS Timed 11/03/2024 8:33 AM CDT MAGNESIUM Timed 11/03/2024 8:33 AM CDT BASIC METABOLIC PANEL Timed 11/03/2024 8:33 AM CDT EGFR Timed 11/03/2024 12:15 AM CDT PHOSPHORUS Timed 11/03/2024 12:15 AM CDT MAGNESIUM Timed 11/03/2024 12:15 AM CDT BASIC METABOLIC PANEL Timed 11/03/2024 12:15 AM CDT EGFR Timed 11/02/2024 4:06 PM CDT PHOSPHORUS Timed 11/02/2024 4:06 PM CDT MAGNESIUM Timed 11/02/2024 4:06 PM CDT BASIC METABOLIC PANEL Timed 11/02/2024 4:06 PM CDT EGFR Timed 11/02/2024 7:53 AM CDT HEPATIC FUNCTION PANEL Routine 7:53 AM CDT CBC WITHOUT DIFFERENTIAL Routine 11/02/2024 7:53 AM CDT PHOSPHORUS Timed 11/02/2024 7:53 AM CDT MAGNESIUM Timed 11/02/2024 7:53 AM CDT BASIC METABOLIC PANEL Timed 11/02/2024 7:53 AM CDT ECG 12-LEAD Routine 11/02/2024 6:38 AM CDT EGFR Timed 11/01/2024 11:50 PM CDT PHOSPHORUS Timed 11/01/2024 11:50 PM CDT MAGNESIUM Timed 11/01/2024 11:50 PM CDT BASIC METABOLIC PANEL Timed 11/01/2024 11:50 PM CDT CBC WITHOUT DIFFERENTIAL Timed 11/01/2024 8:27 PM CDT COPPER, SERUM Routine 11/01/2024 8:27 PM CDT IMMATURE PLATELET FRACTION Timed 11/01/2024 5:28 PM CDT EGFR Timed 11/01/2024 5:28 PM CDT DIFFERENTIAL AUTO Timed 11/01/2024 5:2 8 PM CDT CBC WITH AUTO DIFFERENTIAL Timed 11/01/2024 5:28 PM CDT PHOSPHORUS Timed 11/01/2024 5:28 PM CDT MAGNESIUM Timed 11/01/2024 5:28 PM CDT BASIC METABOLIC PANEL Timed 11/01/2024 5:[address] CHEST W CONTRAST ED Urgent/IP Urgent 11/01/2024 2:24 PM CDT INFECTION PREVENTION VRE CULTURE Routine 11/01/2024 11:33 AM CDT C. DIFFICILE TESTING STAT 11/01/2024 11:33 AM CDT TRANSTHORACIC ECHO (TTE) COMPLETE W DOPPLER/CF W CONTRAST ED Urgent/IP Urgent 11/01/2024 10:52 AM CDT HEPATIC FUNCTION PANEL Timed 9:03 AM CDT EGFR Timed 11/01/2024 9:03 AM CDT PHOSPHORUS Timed 11/01/2024 9:03 AM CDT MAGNESIUM Timed 11/01/2024 9:03 AM CDT BASIC METABOLIC PANEL Timed 11/01/2024 9:03 AM CDT ECG 12-LEAD Routine 11/01/2024 6:33 AM CDT EGFR Timed 11/01/2024 12:24 AM CDT PHOSPHORUS Timed 11/01/2024 12:24 AM CDT MAGNESIUM Timed 11/01/2024 12:24 AM CDT BASIC METABOLIC PANEL Timed 11/01/2024 12:24 AM CDT NOROVIRUS PCR Routine 10/31/2024 5:27 PM CDT EGFR Timed 10/31/2024 4:26 PM CDT VITAMIN K Timed 10/31/2024 4:26 PM CDT VITAMIN D 25 HYDROXY Timed 10/31/2024 4:26 PM CDT VITAMIN A Timed 10/31/2024 4:26 PM CDT PHOSPHORUS Timed 10/31/2024 4:26 PM CDT MAGNESIUM Timed 10/31/2024 4:26 PM CDT BASIC METABOLIC PANEL Timed 10/31/2024 4:26 PM CDT XR ABDOMEN AP 1 VIEW IP Routine 10/31/2024 2:17 PM CDT B CHECK SAMPLE STAT 10/31/2024 8:47 AM CDT RESPIRATORY PATHOGEN PANEL Routine 10/31/2024 8:47 AM CDT EGFR STAT 10/31/2024 7:51 AM CDT CRITICAL RESULT CALLBACK CHEMISTRY STAT 10/31/2024 7:51 AM CDT HCG, BLOOD, QUANTITATIVE STAT 10/31/2024 7:51 AM CDT DIFFERENTIAL AUTO STAT 10/31/2024 7:5 1 AM CDT CALCIUM, IONIZED STAT 10/31/2024 7:51 AM CDT PHOSPHORUS STAT 10/31/2024 7:51 AM CDT MAGNESIUM STAT 10/31/2024 7:51 AM CDT CBC WITH AUTO DIFFERENTIAL STAT 10/31/2024 7:51 AM CDT HEPATIC FUNCTION PANEL STAT 7:51 AM CDT BASIC METABOLIC PANEL STAT 10/31/2024 7:51 AM CDT TYPE AND SCREEN STAT 10/31/2024 7:51 AM CDT INFECTION PREVENTION MRSA ONLY (STAPHYLOCOCCUS AUREUS) CULTURE Routine 10/31/2024 7:51 AM CDT POTASSIUM, WHOLE BLOOD STAT 5:13 AM CDT TROPONIN I HIGH-SENSITIVITY 2-HOUR Timed 10/31/2024 5:13 AM CDT ECG 12-LEAD STAT 10/31/2024 4:10 AM CDT EGFR STAT 10/31/2024 3:14 AM CDT DIFFERENTIAL AUTO STAT 10/31/2024 3:1 4 AM CDT TROPONIN I HIGH-SENSITIVITY SERIES (BASELINE, 2HR, 4HR, 6HR) STAT 10/31/2024 3:14 AM CDT THYROID FUNCTION CASCADE STAT 10/31/2024 3:14 AM CDT CALCIUM, IONIZED STAT 10/31/2024 3:14 AM CDT PHOSPHORUS Routine 10/31/2024 3:14 AM CDT MAGNESIUM Routine 10/31/2024 3:14 AM CDT HEPATIC FUNCTION PANEL STAT 3:14 AM CDT BASIC METABOLIC PANEL STAT 10/31/2024 3:14 AM CDT CBC WITH AUTO DIFFERENTIAL STAT 10/31/2024 3:14 AM CDT XR CHEST 1 VIEW ED 10/31/2024 3:06 AM CDT THINPREP TIS PAP REFLEX HPV MRNA E6/E7, CHLAMYDIA/N.GONORRHOEA E Routine 09/14/2016 12:56 PM [employer] from Last 3 Months or Most Recently Relevant to Health Maintenance Results * eGFR (01/01/2025 2:10 PM CDT) eGFR >90 >=60 mL/min/1. 73 m2 Comment: Interpretive Data Reference Interval Normal >/= 90 mL/min/1.73m2 Mildly decreased* 60 - 89 mL/min/1.73m2 Mildly to moderately decreased 45 - 59 mL/min/1.73m2 Moderately to severely decreased 30 - 44 mL/min/1.73m2 Severely decreased 15 - 29 mL/min/1.73m2 Kidney Failure < 15 mL/min/1.73m2 *Relative to young adult level Estimated glomerular filtration rate is determined by the 2020 CKD-EPI equation recommended by the National Kidney Foundation (A Unifying Approach to GFR Estimation: Recommendations of the NKF-ASK Task Force on Reassessing the Inclusion of Race in Diagnosing Kidney Disease, JASN 202). The CKD-EPI equation should not be used for patients with unstable renal function and has not been validated in children and those over 70. Current interpretive data was last reviewed 2021. Blood 01/01/2025 2:10 PM CDT 01/01/2025 6:14 PM CDT us Dorothea Stephen [employer] [facility] [employer] LAB BLOOD ORDERABLES Krystyna l Result [facility] BACK [facility] Department [place] [address] * (ABNORMAL) Basic metabolic panel (01/01/2025 2:10 PM CDT) Sodium 139 135 - 145 mmol/L Potassium, pl 2.9(L) 3.3 - 4.9 mmol/L [facility] Chloride 98 97 - 110 mmol/L [facility] CO2 26 22 - 32 mmol/L [facility] Anion gap 15 2 - 15 mmol/L [facility] BUN 11 6 - 25 mg/dL [facility] Creatinine 0.63 0.60 - 1.10 mg/dL [facility] Glucose 91 70 - 199 mg/dL [facility] Comment: Interpretive Data Fasting glucose >/= 126 mg/dl is diagnostic for diabetes. Fasting is defined as no caloric intake for at least 8 hours. Fasting glucose between 100 mg/dl to 125 mg/dl is diagnostic of prediabetes. In a patient with classic symptoms of hyperglycemia or hyperglycemic crisis, a random glucose >/= 200 mg/dl is diagnostic for diabetes. In the absence of unequivocal hyperglycemia, results should be confirmed by repeat testing. The classification and Diagnosis of Diabetes Diabetes Care 2021; 46: S19-S40. Current interpretive data was last revised 2022. Calcium 9.2 8.5 - 10.3 mg/dL [facility] Blood 01/01/2025 2:10 PM CDT 01/01/2025 6:04 PM CDT us Dorothea Stephen NP LAB BLOOD ORDERABLES Krystyna meyers Result [facility] [place] [address] * Glucose, random (Outreach) (12/27/2024 9:13 AM CDT) [facility] Glucose 118 70 - 199 mg/dL Comment: Interpretive Data Fasting glucose >/= 126 mg/dl is diagnostic for diabetes. Fasting is defined as no caloric intake for at least 8 hours. Fasting glucose between 100 mg/dl to 125 mg/dl is diagnostic of prediabetes. In a patient with classic symptoms of hyperglycemia or hyperglycemic crisis, a random glucose >/= 200 mg/dl is diagnostic for diabetes. In the absence of unequivocal hyperglycemia, results should be confirmed by repeat testing. The classification and Diagnosis of Diabetes Diabetes Care 2021; 46: S19-S40. Current interpretive data was last revised 2022. Blood 12/27/2024 9:13 AM CDT 12/27/2024 10:38 AM CDT Dorothea Jaramillo'Brien [facility] [employer] [facility] LAB BLOOD ORDERABLES Krystyna l Result Performing Organization Address [facility] Co de Phone Number [facility] [place] [address] * eGFR (12/27/2024 9:13 AM CDT) eGFR >90 >=60 mL/min/1. 73 m2 Comment: Interpretive Data Reference Interval Normal >/= 90 mL/min/1.73m2 Mildly decreased* 60 - 89 mL/min/1.73m2 Mildly to moderately decreased 45 - 59 mL/min/1.73m2 Moderately to severely decreased 30 - 44 mL/min/1.73m2 Severely decreased 15 - 29 mL/min/1.73m2 Kidney Failure < 15 mL/min/1.73m2 *Relative to young adult level Estimated glomerular filtration rate is determined by the 2020 CKD-EPI equation recommended by the National Kidney Foundation (A Unifying Approach to GFR Estimation: Recommendations of the NKF-ASK Task Force on Reassessing the Inclusion of Race in Diagnosing Kidney Disease, JASN 1). The CKD-EPI equation should not be used for patients with unstable renal function and has not been validated in children and those over 70. Current interpretive data was last reviewed 2021. Blood 12/27/2024 9:13 AM CDT 12/27/2024 10:50 AM CDT Dorothea Stephen [facility] LAB BLOOD ORDERABLES Krystyna l Result [facility] [place] [address] * Differential, auto (12/27/2024 9:13 AM CDT) Neutrophil abs 3.36 1.50 - 6.50 K/cumm Imm gran abs 0.01 0.00 - 0.10 K/cumm [facility] Lymphocyte abs 1.97 0.80 - 3.30 K/cumm [facility] Monocyte abs 0.37 0.20 - 0.80 K/cumm [facility] Eosinophil abs 0.18 0.00 - 0.50 K/cumm [facility] Basophil abs 0.04 0.00 - 0.10 K/cumm [facility] Neutrophil pct 56.7 % [facility] Comment: Interpretive Data Percent cell count reference ranges are not reported, since discordance with absolute values may lead to misinterpretation of CBC data. Current Interpretive Data was last revised on 2017. Imm gran pct 0.2 % [facility] Comment: Interpretive Data Percent cell count reference ranges are not reported, since discordance with absolute values may lead to misinterpretation of CBC data. Current Interpretive Data was last revised on 2017. Lymphocyte pct 33.2 % [facility] Comment: Interpretive Data Percent cell count reference ranges are not reported, since discordance with absolute values may lead to misinterpretation of CBC data. Current Interpretive Data was last revised on 2017. Monocyte pct 6.2 % [facility] Comment: Interpretive Data Percent cell count reference ranges are not reported, since discordance with absolute values may lead to misinterpretation of CBC data. Current Interpretive Data was last revised on 2017. Eosinophil pct 3.0 % [facility] Comment: Interpretive Data Percent cell count reference ranges are not reported, since discordance with absolute values may lead to misinterpretation of CBC data. Current Interpretive Data was last revised on 2017. Basophil pct 0.7 % [facility] Comment: Interpretive Data Percent cell count reference ranges are not reported, since discordance with absolute values may lead to misinterpretation of CBC data. Current Interpretive Data was last revised on 2017. Blood 12/27/2024 9:13 AM CDT 12/27/2024 10:37 AM CDT us Dorothea Stephen NP LAB BLOOD ORDERABLES Krystyna l Result [facility] [place] [address] * (ABNORMAL) Comprehensive metabolic panel, without glucose (Outreach) (12/27/2024 9:13 AM CDT) [facility] Sodium 136 135 - 145 mmol/L Potassium, pl 2.9(L) 3.3 - 4.9 mmol/L [facility] Chloride 98 97 - 110 mmol/L [facility] CO2 24 22 - 32 mmol/L [facility] Anion gap 14 2 - 15 mmol/L [facility] BUN 9 6 - 25 mg/dL [facility] Creatinine 0.64 0.60 - 1.10 mg/dL [facility] Calcium 9.7 8.5 - 10.3 mg/dL [facility] Protein, pl 8.2 6.5 - 8.5 g/dL [facility] Albumin 4.2 3.5 - 5.0 g/dL [facility] Bilirubin, total 0.7 0.1 - 1.2 mg/dL [facility] Alk phos 175(H) 40 - 130 Units/L [facility] AST 51(H) 10 - 45 Units/L [facility] ALT 25 7 - 45 Units/L [facility] Blood 12/27/2024 9:13 AM CDT 12/27/2024 10:38 AM CDT us Dorothea Stephen [employer] LAB BLOOD ORDERABLES Krystyna l Result [facility] [place] [address] * (ABNORMAL) CBC with auto differential (12/27/2024 9:13 AM CDT) [facility] WBC 5.93 3.80 - 9.90 K/cumm Hgb 13.9 11.9 - 15.5 g/dL [facility] Hct 40.1 35.6 - 45.5 % [facility] Plt 138(L) 150 - 400 K/cumm [facility] MPV 11.4 9.1 - 12.3 fL [facility] RBC 4.23 3.90 - 5.20 M/cumm [facility] MCV 94.8 81.3 - 96.4 fL [facility] MCH 32.9 27.1 - 33.3 pg [facility] MCHC 34.7 32.3 - 35.7 g/dL [facility] RDW CV 13.0 11.1 - 14.9 % [facility] RDW SD 45.3 35.7 - 48.1 fL [facility] NRBC abs 0.00 0.00 - 0.01 K/cumm [facility] Blood 12/27/2024 9:13 AM CDT 12/27/2024 10:37 AM CDT Dorothea Stephen NP LAB BLOOD ORDERABLES Krystyna l Result Performing Organization Address City/[facility]/ZIP Co de Phone Number [facility] [place] [address] * Magnesium (12/27/2024 9:13 AM CDT) Magnesium 1.9 1.4 - 2.5 mg/dL Blood 12/27/2024 9:13 AM CDT 12/27/2024 10:50 AM CDT Mo Villatoro MD LAB BLOOD ORDERABLES Final Resul t [facility] [place] [address] * Blood culture Blood (12/27/2024 9:05 AM CDT) Report Final Report: No growth Blood 12/27/2024 9:05 AM CDT 12/27/2024 11:47 AM CDT Narrative [facility] - 12/31/2024 12:00 PM CDT Specimen received in media. Culture results may be compromised. If clinically indicated, submit a new specimen. Right AC 1. Blood cultures are incubated for 4 days on a continuously monitored blood culture system. The first report of a negative culture is issued within 24 hours of receipt of the specimen in the laboratory. 2. Positive culture results are reported as soon as they are detected. 3. The most important factor for detection of microbes in the setting of bloodstream infection is the volume of blood submitted for culture. Failure to collect an optimal blood volume can result in false negative blood cultures. 4. For pediatric patients, the recommended blood volume to collect follows a weight based strategy. See the electronic test catalog for collection instructions. 5. For positive blood cultures, a rapid molecular test may be performed for organism identification using the sherri ePlex blood culture identification panel for gram positive (BCID-GP) and gram negative (BCID-GN) organisms. This nucleic acid amplification test detects microbial DNA in positive blood culture broth. This assay has been cleared by the [place] Food and Drug Administration and its performance characteristics have been verified by the [facility]. For questions about this culture, contact the Microbiology Laboratory at [phone]. Interpretive data was last revised on 24. Dorothea Stephen NP LAB MICROBIOLOGY - GENERA L ORDERABLES Final Result SHONA RAMIREZ [facility] [place] [address] * Blood culture Blood (12/27/2024 9:05 AM CDT) Report Final Report: No growth Blood 12/27/2024 9:05 AM CDT 12/27/2024 11:47 AM CDT Narrative SHONA BACK - 12/31/2024 12:00 PM CDT Specimen received in media. Culture results may be compromised. If clinically indicated, submit a new specimen. L AC 1. Blood cultures are incubated for 4 days on a continuously monitored blood culture system. The first report of a negative culture is issued within 24 hours of receipt of the specimen in the laboratory. 2. Positive culture results are reported as soon as they are detected. 3. The most important factor for detection of microbes in the setting of bloodstream infection is the volume of blood submitted for culture. Failure to collect an optimal blood volume can result in false negative blood cultures. 4. For pediatric patients, the recommended blood volume to collect follows a weight based strategy. See the electronic test catalog for collection instructions. 5. For positive blood cultures, a rapid molecular test may be performed for organism identification using the sherri ePlex blood culture identification panel for gram positive (BCID-GP) and gram negative (BCID-GN) organisms. This nucleic acid amplification test detects microbial DNA in positive blood culture broth. This assay has been cleared by the [place] Food and Drug Administration and its performance characteristics have been verified by the [facility]. For questions about this culture, contact the Microbiology Laboratory at [phone]. Interpretive data was last revised on 24. us Dorothea Stephen NP LAB MICROBIOLOGY - GENERA L ORDERABLES Final Result Performing Organization Address [facility] Co de Phone Number SH[facility] Department [place] [address] * (ABNORMAL) Cystatin C (11/28/2024 10:45 AM CDT) [facility] Cystatin C 1.23(H) 0.60 - 1.20 mg/L Comment: Interpretive Data Cystatin C concentrations vary widely in the first month of life, particularly in pre-term infants. Concentrations gradually diminish to adult levels by 1 year of life. Concentrations tend to rise with diminishing renal function in individuals greater than 60 years of age. Current Interpretive Data was last revised on 2020. Testing performed by: [facility], [place] [address] Blood 11/28/2024 10:4 5 AM CDT 11/28/2024 12:03 PM CDT us Alex Bailey MD LAB BLOOD ORDERABLES Final Resu lt Performing Organization Address City/[facility]/ZIP Co de Phone Number SH[facility] [place] [address] * eGFR (11/27/2024 9:44 PM CDT) Pathologist [facility] [place] eGFR >90 >=60 mL/min/1. 73 m2 Comment: Interpretive Data Reference Interval Normal >/= 90 mL/min/1.73m2 Mildly decreased* 60 - 89 mL/min/1.73m2 Mildly to moderately decreased 45 - 59 mL/min/1.73m2 Moderately to severely decreased 30 - 44 mL/min/1.73m2 Severely decreased 15 - 29 mL/min/1.73m2 Kidney Failure < 15 mL/min/1.73m2 *Relative to young adult level Estimated glomerular filtration rate is determined by the 2020 CKD-EPI equation recommended by the National Kidney Foundation (A Unifying Approach to GFR Estimation: Recommendations of the NKF-ASK Task Force on Reassessing the Inclusion of Race in Diagnosing Kidney Disease, JASN 2020). The CKD-EPI equation should not be used for patients with unstable renal function and has not been validated in children and those over 70. Current interpretive data was last reviewed 2021. Blood 11/27/2024 9:44 PM CDT 11/27/2024 10:41 PM CDT us Lee Elena MD LAB BLOOD ORDERABLES Krystyna meyers Result [facility] Department [place] [address] * (ABNORMAL) Differential, auto (11/27/2024 9:44 PM CDT) Pathologist [facility] [place] Neutrophil abs 2.70 1.50 - 6.50 K/cumm Imm gran abs 0.03 0.00 - 0.10 K/cumm [facility] Lymphocyte abs 2.90 0.80 - 3.30 K/cumm [facility] Monocyte abs 0.50 0.20 - 0.80 K/cumm [facility] Eosinophil abs 0.13 0.00 - 0.50 K/cumm [facility] Basophil abs 0.13(H) 0.00 - 0.10 K/cumm [facility] Neutrophil pct 42.3 % [facility] Comment: Interpretive Data Percent cell count reference ranges are not reported, since discordance with absolute values may lead to misinterpretation of CBC data. Current Interpretive Data was last revised on 2017. Imm gran pct 0.5 % [facility] Comment: Interpretive Data Percent cell count reference ranges are not reported, since discordance with absolute values may lead to misinterpretation of CBC data. Current Interpretive Data was last revised on 2017. Lymphocyte pct 45.4 % [facility] Comment: Interpretive Data Percent cell count reference ranges are not reported, since discordance with absolute values may lead to misinterpretation of CBC data. Current Interpretive Data was last revised on 2017. Monocyte pct 7.8 % [facility] Comment: Interpretive Data Percent cell count reference ranges are not reported, since discordance with absolute values may lead to misinterpretation of CBC data. Current Interpretive Data was last revised on 2017. Eosinophil pct 2.0 % [facility] Comment: Interpretive Data Percent cell count reference ranges are not reported, since discordance with absolute values may lead to misinterpretation of CBC data. Current Interpretive Data was last revised on 2017. Basophil pct 2.0 % [facility] Comment: Interpretive Data Percent cell count reference ranges are not reported, since discordance with absolute values may lead to misinterpretation of CBC data. Current Interpretive Data was last revised on 2017. Blood 11/27/2024 9:44 PM CDT 11/27/2024 10:41 PM CDT us Lee Elena MD LAB BLOOD ORDERABLES Krystyna l Result [facility] [place] [address] * (ABNORMAL) CBC with auto differential (11/27/2024 9:44 PM CDT) Pathologist [facility] [place] WBC 6.39 3.80 - 9.90 K/cumm Hgb 10.5(L) 11.9 - 15.5 g/dL [facility] Hct 32.5(L) 35.6 - 45.5 % [facility] Plt 419(H) 150 - 400 K/cumm [facility] MPV 9.3 9.1 - 12.3 fL [facility] RBC 3.10(L) 3.90 - 5.20 M/cumm [facility] MCV 104.8(H) 81.3 - 96.4 fL [facility] MCH 33.9(H) 27.1 - 33.3 pg [facility] MCHC 32.3 32.3 - 35.7 g/dL [facility] RDW CV 18.6(H) 11.1 - 14.9 % [facility] RDW SD 71.7(H) 35.7 - 48.1 fL [facility] NRBC abs 0.00 0.00 - 0.01 K/cumm [facility] Blood 11/27/2024 9:44 PM CDT 11/27/2024 10:41 PM CDT us Lee Elena MD LAB BLOOD ORDERABLES Krystyna l Result Performing Organization Address City/[facility]/ZIP Co de Phone Number [facility] [place] [address] * (ABNORMAL) Vitamin D 25 hydroxy (11/27/2024 9:44 PM CDT) Pathologist [facility] [place] Vitamin D 25-OH 27(L) 30 - 80 ng/mL Blood 11/27/2024 9:44 PM CDT 11/27/2024 10:41 PM CDT us Alex Bailey MD LAB BLOOD ORDERABLES Final Resu lt [facility] [place] [address] * Protime-INR (11/27/2024 9:44 PM CDT) PT 10.2 9.7 - 13.0 sec INR 0.95 0.90 - 1.20 [facility] Comment: Interpretive data Oral anticoagulant therapeutic ranges: Venous thromboembolism prophylaxis or treatment: 2.0-3.0 CARDIOLOGY Standard range: 2.0-3.0 High-intensity range: 2.5-3.5 Refer to indication-specific guidelines for appropriate target ranges for prosthetic heart valve replacement. Current interpretive data was last revised on 2019. Blood 11/27/2024 9:44 PM CDT 11/27/2024 10:45 PM CDT Lee Elena MD LAB BLOOD ORDERABLES Krystyna l Result Performing Organization Address City/[facility] Co de Phone Number [facility] [place] [address] * (ABNORMAL) Phosphorus (11/27/2024 9:44 PM CDT) Phosphorus, pl 6.6(H) 2.3 - 4.5 mg/dL Blood 11/27/2024 9:44 PM CDT 11/27/2024 10:41 PM CDT Lee Elena MD LAB BLOOD ORDERABLES Krystyna l Result Performing Organization Address [facility] Co de Phone Number [facility] [place] [address] * Magnesium (11/27/2024 9:44 PM CDT) Magnesium 1.6 1.4 - 2.5 mg/dL Blood 11/27/2024 9:44 PM CDT 11/27/2024 10:41 PM CDT Lee Elena MD LAB BLOOD ORDERABLES Krystyna l Result Performing Organization Address City/[facility] Co de Phone Number [facility] [place] [address] * (ABNORMAL) Hepatic function panel (11/27/2024 9:44 PM CDT) [facility] Bilirubin, total 0.4 0.1 - 1.2 mg/dL Bilirubin, direct 0.2 0.1 - 0.3 mg/dL [facility] Protein, pl 7.3 6.5 - 8.5 g/dL [facility] Albumin 3.4(L) 3.5 - 5.0 g/dL [facility] Alk phos 133(H) 40 - 130 Units/L [facility] ALT 17 7 - 45 Units/L [facility] AST 36 10 - 45 Units/L [facility] Blood 11/27/2024 9:44 PM CDT 11/27/2024 10:41 PM CDT us Lee Elena MD LAB BLOOD ORDERABLES Krystyna l Result [facility] [place] [address] * (ABNORMAL) Basic metabolic panel (11/27/2024 9:44 PM CDT) [facility] Sodium 139 135 - 145 mmol/L Potassium, pl 4.3 3.3 - 4.9 mmol/L [facility] Chloride 101 97 - 110 mmol/L [facility] CO2 31 22 - 32 mmol/L [facility] Anion gap 7 2 - 15 mmol/L [facility] BUN 18 6 - 25 mg/dL [facility] Creatinine 0.50(L) 0.60 - 1.10 mg/dL [facility] Glucose 99 70 - 199 mg/dL [facility] Comment: Interpretive Data Fasting glucose >/= 126 mg/dl is diagnostic for diabetes. Fasting is defined as no caloric intake for at least 8 hours. Fasting glucose between 100 mg/dl to 125 mg/dl is diagnostic of prediabetes. In a patient with classic symptoms of hyperglycemia or hyperglycemic crisis, a random glucose >/= 200 mg/dl is diagnostic for diabetes. In the absence of unequivocal hyperglycemia, results should be confirmed by repeat testing. The classification and Diagnosis of Diabetes Diabetes Care 2022; 46: S19-S40. Current interpretive data was last revised 2022. Calcium 10.0 8.5 - 10.3 mg/dL [facility] Blood 11/27/2024 9:44 PM CDT 11/27/2024 10:41 PM CDT Lee Elena MD LAB BLOOD ORDERABLES Krystyna l Result Performing Organization Address [facility] Co de Phone Number [facility] [place] [address] * eGFR (11/26/2024 9:38 PM CDT) eGFR >90 >=60 mL/min/1. 73 m2 Comment: Interpretive Data Reference Interval Normal >/= 90 mL/min/1.73m2 Mildly decreased* 60 - 89 mL/min/1.73m2 Mildly to moderately decreased 45 - 59 mL/min/1.73m2 Moderately to severely decreased 30 - 44 mL/min/1.73m2 Severely decreased 15 - 29 mL/min/1.73m2 Kidney Failure < 15 mL/min/1.73m2 *Relative to young adult level Estimated glomerular filtration rate is determined by the 2020 CKD-EPI equation recommended by the National Kidney Foundation (A Unifying Approach to GFR Estimation: Recommendations of the NKF-ASK Task Force on Reassessing the Inclusion of Race in Diagnosing Kidney Disease, JASN 202). The CKD-EPI equation should not be used for patients with unstable renal function and has not been validated in children and those over 70. Current interpretive data was last reviewed 2021. Blood 11/26/2024 9:38 PM CDT 11/26/2024 10:42 PM CDT Lee Elena MD LAB BLOOD ORDERABLES Krystyna l Result Performing Organization Address [facility]/ZIP Co de Phone Number [facility] [place] [address] * (ABNORMAL) Differential, auto (11/26/2024 9:38 PM CDT) Pathologist [facility] [place] Neutrophil abs 2.02 1.50 - 6.50 K/cumm Imm gran abs 0.03 0.00 - 0.10 K/cumm [facility] Lymphocyte abs 3.04 0.80 - 3.30 K/cumm [facility] Monocyte abs 0.56 0.20 - 0.80 K/cumm [facility] Eosinophil abs 0.10 0.00 - 0.50 K/cumm [facility] Basophil abs 0.11(H) 0.00 - 0.10 K/cumm [facility] Neutrophil pct 34.4 % [facility] Comment: Interpretive Data Percent cell count reference ranges are not reported, since discordance with absolute values may lead to misinterpretation of CBC data. Current Interpretive Data was last revised on 2017. Imm gran pct 0.5 % [facility] Comment: Interpretive Data Percent cell count reference ranges are not reported, since discordance with absolute values may lead to misinterpretation of CBC data. Current Interpretive Data was last revised on 2017. Lymphocyte pct 51.9 % [facility] Comment: Interpretive Data Percent cell count reference ranges are not reported, since discordance with absolute values may lead to misinterpretation of CBC data. Current Interpretive Data was last revised on 2017. Monocyte pct 9.6 % [facility] Comment: Interpretive Data Percent cell count reference ranges are not reported, since discordance with absolute values may lead to misinterpretation of CBC data. Current Interpretive Data was last revised on 2017. Eosinophil pct 1.7 % [facility] Comment: Interpretive Data Percent cell count reference ranges are not reported, since discordance with absolute values may lead to misinterpretation of CBC data. Current Interpretive Data was last revised on 2017. Basophil pct 1.9 % [facility] Comment: Interpretive Data Percent cell count reference ranges are not reported, since discordance with absolute values may lead to misinterpretation of CBC data. Current Interpretive Data was last revised on 2017. Blood 11/26/2024 9:38 PM CDT 11/26/2024 10:36 PM CDT Lee Elena MD LAB BLOOD ORDERABLES Krystyna l Result Performing Organization Address [facility] Co de Phone Number [facility] [place] [address] * (ABNORMAL) CBC with auto differential (11/26/2024 9:38 PM CDT) WBC 5.86 3.80 - 9.90 K/cumm Hgb 9.7(L) 11.9 - 15.5 g/dL [facility] Hct 29.7(L) 35.6 - 45.5 % [facility] Plt 398 150 - 400 K/cumm [facility] MPV 9.2 9.1 - 12.3 fL [facility] RBC 2.87(L) 3.90 - 5.20 M/cumm [facility] MCV 103.5(H) 81.3 - 96.4 fL [facility] MCH 33.8(H) 27.1 - 33.3 pg [facility] MCHC 32.7 32.3 - 35.7 g/dL [facility] RDW CV 18.7(H) 11.1 - 14.9 % [facility] RDW SD 71.5(H) 35.7 - 48.1 fL [facility] NRBC abs 0.00 0.00 - 0.01 K/cumm [facility] Blood 11/26/2024 9:38 PM CDT 11/26/2024 10:36 PM CDT Lee Elena MD LAB BLOOD ORDERABLES Krystyna l Result Performing Organization Address [facility]/ZIP Co de Phone Number [facility] [employer] [place], [place] [id number] * (ABNORMAL) Protime-INR (11/26/2024 9:38 PM CDT) PT 9.5(L) 9.7 - 13.0 sec INR 0.88(L) 0.90 - 1.20 [facility] Comment: Interpretive data Oral anticoagulant therapeutic ranges: Venous thromboembolism prophylaxis or treatment: 2.0-3.0 CARDIOLOGY Standard range: 2.0-3.0 High-intensity range: 2.5-3.5 Refer to indication-specific guidelines for appropriate target ranges for prosthetic heart valve replacement. Current interpretive data was last revised on 2019. Blood 11/26/2024 9:38 PM CDT 11/26/2024 10:43 PM CDT Lee Elena MD LAB BLOOD ORDERABLES Krystyna l Result Performing Organization Address City/[facility] Co de Phone Number [facility] [place] [address] * (ABNORMAL) Phosphorus (11/26/2024 9:38 PM CDT) Phosphorus, pl 5.7(H) 2.3 - 4.5 mg/dL Blood 11/26/2024 9:38 PM CDT 11/26/2024 10:42 PM CDT Lee lEena MD LAB BLOOD ORDERABLES Krystyna l Result Performing Organization Address [facility] Co de Phone Number [facility] [place] [address] * Magnesium (11/26/2024 9:38 PM CDT) Magnesium 2.1 1.4 - 2.5 mg/dL Blood 11/26/2024 9:38 PM CDT 11/26/2024 10:42 PM CDT Lee Elena MD LAB BLOOD ORDERABLES Krystyna l Result Performing Organization Address [facility] Co de Phone Number [facility] [employer] [place], [place] [id number] * (ABNORMAL) Hepatic function panel (11/26/2024 9:38 PM CDT) Pathologist [facility] [place] Bilirubin, total 0.3 0.1 - 1.2 mg/dL Bilirubin, direct 0.2 0.1 - 0.3 mg/dL [facility] Protein, pl 6.5 6.5 - 8.5 g/dL [facility] Albumin 2.8(L) 3.5 - 5.0 g/dL [facility] Alk phos 132(H) 40 - 130 Units/L [facility] ALT 17 7 - 45 Units/L [facility] AST 38 10 - 45 Units/L [facility] Blood 11/26/2024 9:38 PM CDT 11/26/2024 10:42 PM CDT us Lee Elena MD LAB BLOOD ORDERABLES Krystyna l Result [facility] One [facility] [place] [address] * (ABNORMAL) Basic metabolic panel (11/26/2024 9:38 PM CDT) Pathologist [facility] [place] Sodium 141 135 - 145 mmol/L Potassium, pl 4.1 3.3 - 4.9 mmol/L [facility] Chloride 101 97 - 110 mmol/L [facility] CO2 29 22 - 32 mmol/L [facility] Anion gap 11 2 - 15 mmol/L [facility] BUN 15 6 - 25 mg/dL [facility] Creatinine 0.54(L) 0.60 - 1.10 mg/dL [facility] Glucose 89 70 - 199 mg/dL [facility] Comment: Interpretive Data Fasting glucose >/= 126 mg/dl is diagnostic for diabetes. Fasting is defined as no caloric intake for at least 8 hours. Fasting glucose between 100 mg/dl to 125 mg/dl is diagnostic of prediabetes. In a patient with classic symptoms of hyperglycemia or hyperglycemic crisis, a random glucose >/= 200 mg/dl is diagnostic for diabetes. In the absence of unequivocal hyperglycemia, results should be confirmed by repeat testing. The classification and Diagnosis of Diabetes Diabetes Care 202; 46: S19-S40. Current interpretive data was last revised 2022. Calcium 9.1 8.5 - 10.3 mg/dL [facility] Blood 11/26/2024 9:38 PM CDT 11/26/2024 10:42 PM CDT us Lee Elena MD LAB BLOOD ORDERABLES Krystyna mira Result [facility] [place] [address] * TRANSTHORACIC ECHO (TTE) LIMITED/FOLLOW UP W LTD DOPPLER/CF W CONTRAST (11/26/2024 1:54 PM CDT) Estimated EF 55-60 % CONS SCIMAGE Anatomical Region Laterality Modality Ultrasound 11/26/2024 1:05 PM CDT Narrative 11/26/2024 2:37 PM CDT [facility] [place] [address] Transthoracic Echocardiographic Report Patient Name: HAYLEY LEÓN L : 1990 (34y 9m) Gender: F Study Date: 11/26/2024 01:05:04 PM Ht(Inch): 61 Wt(Lb): 98.1 BSA: 1.38 Debt Management Counselor: Lise De Anda Location: [id number] Order Provider: ALEX BAILEY Heart Rate: 72 BMI: 18.53 BP: 92 / 57 Ref Provider: ALEX BAILEY PROCEDURES: Echocardiographic Report: Follow-Up Echocardiography with contrast, transthoracic, 2D, includes M-mode recording. Contrast: Contrast Enhancement was Employed: Due to suboptimal image quality with inadequate visualization of at least 2 of 16 LV wall segments in any view after initial imaging. Perflutren contrast was administered using the volume necessary to obtain adequate images. 0.4 ml Optison Administered, (2.6 ml wasted). INDICATIONS: valvular heart disease. CONCLUSIONS: 1. Normal left ventricular systolic function. The Ejection Fraction is visually estimated to be 55-60 %. Again visualized LV thrombus vs endocarditis near the ventricular apex and septal wall. Measuring 1.4 x 0.6 cm. Similar to prior study from 11/01/24. 2. Normal right ventricular size. Normal right ventricular systolic function. 3. Unable to determine PASP due to inadequate TR jet. COMPARISONS: No change compared to prior study on: 11/01/2024. RECOMMENDATIONS: Consider repeat Cardiac MRI if clinically indicated. ATTESTATION: I have personally reviewed and interpreted this study without fellow or resident. - DISCLAIMER: The study images and the final report will be retained in the patient chart by the Echo Laboratory for the legally required time period. This chart constitutes the legal record of any testing performed. FINDINGS: Left Ventricle: Normal left ventricular cavity size based on 2D measurements. Normal left ventricular systolic function. The Ejection Fraction is visually estimated to be 55-60 %. Again visualized LV thrombus vs endocarditis near the ventricular apex and septal wall. Measuring 1.4 x 0.6 cm. Similar to prior study from 11/01/24. Right Ventricle: Normal right ventricular size. Normal right ventricular systolic function. Left Atrium: The left atrium is normal in size. Right Atrium: The right atrium is normal in size. Mitral Valve: Normal mitral valve structure. Mild mitral valve regurgitation. The mean transmitral gradient is: 1 mmHg. Aortic Valve: Normal trileaflet aortic valve. No aortic regurgitation. No aortic valve stenosis. Tricuspid Valve: Normal tricuspid valve structure. Mild tricuspid regurgitation. Pulmonic Valve: Normal pulmonic valve structure. Mild pulmonic regurgitation. Pericardium: No pericardial effusion. Aorta: Normal aortic root size when indexed. IVC: IVC not visualized due to limited acoustic windows. PASP: Unable to determine PASP due to inadequate TR jet. MEASUREMENTS: 2D/MM Value Range Doppler Value Range LVIDd 2D 4.73 cm [ 3.80 - 5.20 ] MV Peak Alvaro 1.0 m/s Visually Estimated EF 55-60 % MV Peak PG 4.12 mmHg RV Base Dimen 2D 3.0 cm [ 2.5 - 4.2 ] MV Mean PG 1 mmHg AoR Diam 2D 2.69 cm [ 2.70 - 3.70 ] MV VTI 27.3 cm Ao Root Index 1.95 cm/m2 [ 1.00 - 2.00 ] Electronically Signed By: Jim Malloy M.D. 11/26/2024 2:35:57 PM CDT Procedure Note Jim Malloy MD - 11/26/2024 [facility] Cardiac [place] [address] Transthoracic Echocardiographic Report Patient Name: HAYLEY LEÓN L : 1990 (34y 9m) Gender: F Study Date: 11/26/2024 01:05:04 PM Ht(Inch): 61 Wt(Lb): 98.1 BSA: 1.38 Debt Management Counselor: Lise De Anda Location: [id number] Order Provider:ALEX BAILEY Heart Rate: 72 BMI: 18.53 BP: 92 / 57 Ref Provider: ALEX BAIELY PROCEDURES: Echocardiographic Report: Follow-Up Echocardiography with contrast,transthoracic, 2D, includes M-mode recording. Contrast: Contrast Enhancement was Employed: Due to suboptimal imagequality with inadequate visualization of at least 2 of 16 LV wall segments in any viewafter initial imaging. Perflutren contrast was administered using the volume necessaryto obtain adequate images. 0.4 ml Optison Administered, (2.6 ml wasted). INDICATIONS: valvular heart disease. CONCLUSIONS: 1. Normal left ventricular systolic function. The Ejection Fraction isvisually estimated to be 55-60 %. Again visualized LV thrombus vs endocarditis near theventricular apex and septal wall. Measuring 1.4 x 0.6 cm. Similar to prior study from11/01/24. 2. Normal right ventricular size. Normal right ventricular systolicfunction. 3. Unable to determine PASP due to inadequate TR jet. COMPARISONS: No change compared to prior study on: 11/01/2024. RECOMMENDATIONS: Consider repeat Cardiac MRI if clinically indicated. ATTESTATION: I have personally reviewed and interpreted this study without fellow orresident. - DISCLAIMER: The study images and the final report will be retained in the patientchart by the Echo Laboratory for the legally required time period. This chart constitutesthe legal record of any testing performed. FINDINGS: Left Ventricle: Normal left ventricular cavity size based on 2Dmeasurements. Normal left ventricular systolic function. The Ejection Fraction is visually estimatedto be 55-60 %. Again visualized LV thrombus vs endocarditis near the ventricular apex andseptal wall. Measuring 1.4 x 0.6 cm. Similar to prior study from 11/01/24. Right Ventricle: Normal right ventricular size. Normal right ventricularsystolic function. Left Atrium: The left atrium is normal in size. Right Atrium: The right atrium is normal in size. Mitral Valve: Normal mitral valve structure. Mild mitral valveregurgitation. The mean transmitral gradient is: 1 mmHg. Aortic Valve: Normal trileaflet aortic valve. No aortic regurgitation. Noaortic valve stenosis. Tricuspid Valve: Normal tricuspid valve structure. Mild tricuspidregurgitation. Pulmonic Valve: Normal pulmonic valve structure. Mild pulmonicregurgitation. Pericardium: No pericardial effusion. Aorta: Normal aortic root size when indexed. IVC: IVC not visualized due to limited acoustic windows. PASP: Unable to determine PASP due to inadequate TR jet. MEASUREMENTS: 2D/MM Value Range DopplerValue Range LVIDd 2D 4.73 cm [ 3.80 - 5.20 ] MV Peak Vel1.0 m/s Visually Estimated EF 55-60 % MV Peak PG4.12 mmHg RV Base Dimen 2D 3.0 cm [ 2.5 - 4.2 ] MV Mean PG 1mmHg AoR Diam 2D 2.69 cm [ 2.70 - 3.70 ] MV VTI27.3 cm Ao Root Index 1.95 cm/m2 [ 1.00 - 2.00 ] Electronically Signed By: Jim Malloy M.D. 11/26/2024 2:35:57 PM CDT Alex Bailey MD CV ECHO PROCEDURES Final Result * POCT glucose (11/26/2024 7:38 AM CDT) [facility] Glucose, POC 107 70 - 199 mg/dL Blood 11/26/2024 7:38 AM CDT 11/26/2024 7:38 AM CDT us Alex Bailey MD LAB POCT ORDERABLES - DEVICE Fi nal Result [facility] Department [place] [address] * eGFR (11/25/2024 9:19 PM CDT) [facility] eGFR >90 >=60 mL/min/1. 73 m2 Comment: Interpretive Data Reference Interval Normal >/= 90 mL/min/1.73m2 Mildly decreased* 60 - 89 mL/min/1.73m2 Mildly to moderately decreased 45 - 59 mL/min/1.73m2 Moderately to severely decreased 30 - 44 mL/min/1.73m2 Severely decreased 15 - 29 mL/min/1.73m2 Kidney Failure < 15 mL/min/1.73m2 *Relative to young adult level Estimated glomerular filtration rate is determined by the 2020 CKD-EPI equation recommended by the National Kidney Foundation (A Unifying Approach to GFR Estimation: Recommendations of the NKF-ASK Task Force on Reassessing the Inclusion of Race in Diagnosing Kidney Disease, JASN 202). The CKD-EPI equation should not be used for patients with unstable renal function and has not been validated in children and those over 70. Current interpretive data was last reviewed 2021. Blood 11/25/2024 9:19 PM CDT 11/25/2024 10:47 PM CDT us Lee Elena MD LAB BLOOD ORDERABLES Krystyna meyers Result [facility] [place] [address] * Differential, auto (11/25/2024 9:19 PM CDT) Neutrophil abs 1.90 1.50 - 6.50 K/cumm Imm gran abs 0.02 0.00 - 0.10 K/cumm [facility] Lymphocyte abs 2.86 0.80 - 3.30 K/cumm [facility] Monocyte abs 0.53 0.20 - 0.80 K/cumm [facility] Eosinophil abs 0.11 0.00 - 0.50 K/cumm [facility] Basophil abs 0.09 0.00 - 0.10 K/cumm [facility] Neutrophil pct 34.5 % [facility] Comment: Interpretive Data Percent cell count reference ranges are not reported, since discordance with absolute values may lead to misinterpretation of CBC data. Current Interpretive Data was last revised on 2017. Imm gran pct 0.4 % [facility] Comment: Interpretive Data Percent cell count reference ranges are not reported, since discordance with absolute values may lead to misinterpretation of CBC data. Current Interpretive Data was last revised on 2017. Lymphocyte pct 51.9 % [facility] Comment: Interpretive Data Percent cell count reference ranges are not reported, since discordance with absolute values may lead to misinterpretation of CBC data. Current Interpretive Data was last revised on 2017. Monocyte pct 9.6 % [facility] Comment: Interpretive Data Percent cell count reference ranges are not reported, since discordance with absolute values may lead to misinterpretation of CBC data. Current Interpretive Data was last revised on 2017. Eosinophil pct 2.0 % [facility] Comment: Interpretive Data Percent cell count reference ranges are not reported, since discordance with absolute values may lead to misinterpretation of CBC data. Current Interpretive Data was last revised on 2017. Basophil pct 1.6 % [facility] Comment: Interpretive Data Percent cell count reference ranges are not reported, since discordance with absolute values may lead to misinterpretation of CBC data. Current Interpretive Data was last revised on 2017. Blood 11/25/2024 9:19 PM CDT 11/25/2024 10:49 PM CDT us Lee Elena MD LAB BLOOD ORDERABLES Krystyna meyers Result [facility] [place] [address] * (ABNORMAL) CBC with auto differential (11/25/2024 9:19 PM CDT) WBC 5.51 3.80 - 9.90 K/cumm Hgb 10.2(L) 11.9 - 15.5 g/dL [facility] Hct 31.9(L) 35.6 - 45.5 % [facility] Plt 466(H) 150 - 400 K/cumm [facility] MPV 9.4 9.1 - 12.3 fL [facility] RBC 3.06(L) 3.90 - 5.20 M/cumm [facility] MCV 104.2(H) 81.3 - 96.4 fL [facility] MCH 33.3 27.1 - 33.3 pg [facility] MCHC 32.0(L) 32.3 - 35.7 g/dL [facility] RDW CV 19.1(H) 11.1 - 14.9 % [facility] RDW SD 72.8(H) 35.7 - 48.1 fL [facility] NRBC abs 0.00 0.00 - 0.01 K/cumm [facility] Blood 11/25/2024 9:19 PM CDT 11/25/2024 10:49 PM CDT Lee Elena MD LAB BLOOD ORDERABLES Krystyna l Result Performing Organization Address City/[facility] Co de Phone Number [facility] [place], [place] [id number] * Protime-INR (11/25/2024 9:19 PM CDT) PT 10.0 9.7 - 13.0 sec INR 0.93 0.90 - 1.20 [facility] Comment: Interpretive data Oral anticoagulant therapeutic ranges: Venous thromboembolism prophylaxis or treatment: 2.0-3.0 CARDIOLOGY Standard range: 2.0-3.0 High-intensity range: 2.5-3.5 Refer to indication-specific guidelines for appropriate target ranges for prosthetic heart valve replacement. Current interpretive data was last revised on 2019. Blood 11/25/2024 9:19 PM CDT 11/25/2024 10:46 PM CDT Lee Elena MD LAB BLOOD ORDERABLES Krystyna l Result Performing Organization Address [facility] Co de Phone Number [facility] [employer] [place], [place] [id number] * (ABNORMAL) Phosphorus (11/25/2024 9:19 PM CDT) Phosphorus, pl 5.2(H) 2.3 - 4.5 mg/dL Blood 11/25/2024 9:19 PM CDT 11/25/2024 10:47 PM CDT Lee Elena MD LAB BLOOD ORDERABLES Krystyna l Result [facility] [place] [address] * Magnesium (11/25/2024 9:19 PM CDT) Pathologist [facility] [place] Magnesium 1.6 1.4 - 2.5 mg/dL Blood 11/25/2024 9:19 PM CDT 11/25/2024 10:47 PM CDT Lee Elena MD LAB BLOOD ORDERABLES Krystyna l Result Performing Organization Address [facility]/ZIP Co de Phone Number [facility] [place] [address] * (ABNORMAL) Hepatic function panel (11/25/2024 9:19 PM CDT) Bilirubin, total 0.4 0.1 - 1.2 mg/dL Bilirubin, direct 0.2 0.1 - 0.3 mg/dL [facility] Protein, pl 6.8 6.5 - 8.5 g/dL [facility] Albumin 3.0(L) 3.5 - 5.0 g/dL [facility] Alk phos 142(H) 40 - 130 Units/L [facility] ALT 16 7 - 45 Units/L [facility] AST 35 10 - 45 Units/L [facility] Blood 11/25/2024 9:19 PM CDT 11/25/2024 10:47 PM CDT Lee Elena MD LAB BLOOD ORDERABLES Krystyna l Result Performing Organization Address City/[facility]/ZIP Co de Phone Number [facility] [place] [address] * (ABNORMAL) Basic metabolic panel (11/25/2024 9:19 PM CDT) Pathologist [facility] [place] Sodium 143 135 - 145 mmol/L Potassium, pl 4.3 3.3 - 4.9 mmol/L [facility] Chloride 104 97 - 110 mmol/L [facility] CO2 29 22 - 32 mmol/L [facility] Anion gap 10 2 - 15 mmol/L [facility] BUN 16 6 - 25 mg/dL [facility] Creatinine 0.46(L) 0.60 - 1.10 mg/dL [facility] Glucose 99 70 - 199 mg/dL [facility] Comment: Interpretive Data Fasting glucose >/= 126 mg/dl is diagnostic for diabetes. Fasting is defined as no caloric intake for at least 8 hours. Fasting glucose between 100 mg/dl to 125 mg/dl is diagnostic of prediabetes. In a patient with classic symptoms of hyperglycemia or hyperglycemic crisis, a random glucose >/= 200 mg/dl is diagnostic for diabetes. In the absence of unequivocal hyperglycemia, results should be confirmed by repeat testing. The classification and Diagnosis of Diabetes Diabetes Care 202; 46: S19-S40. Current interpretive data was last revised 2022. Calcium 9.5 8.5 - 10.3 mg/dL [facility] Blood 11/25/2024 9:19 PM CDT 11/25/2024 10:47 PM CDT us Lee Elena MD LAB BLOOD ORDERABLES Krystyna meyers Result [facility] One [facility] [place] [address] * eGFR (11/24/2024 9:18 PM CDT) Pathologist [facility] eGFR >90 >=60 mL/min/1. 73 m2 Comment: Interpretive Data Reference Interval Normal >/= 90 mL/min/1.73m2 Mildly decreased* 60 - 89 mL/min/1.73m2 Mildly to moderately decreased 45 - 59 mL/min/1.73m2 Moderately to severely decreased 30 - 44 mL/min/1.73m2 Severely decreased 15 - 29 mL/min/1.73m2 Kidney Failure < 15 mL/min/1.73m2 *Relative to young adult level Estimated glomerular filtration rate is determined by the 2020 CKD-EPI equation recommended by the National Kidney Foundation (A Unifying Approach to GFR Estimation: Recommendations of the NKF-ASK Task Force on Reassessing the Inclusion of Race in Diagnosing Kidney Disease, JASN 202). The CKD-EPI equation should not be used for patients with unstable renal function and has not been validated in children and those over 70. Current interpretive data was last reviewed 2021. Blood 11/24/2024 9:18 PM CDT 11/24/2024 10:00 PM CDT us Lee Elena MD LAB BLOOD ORDERABLES Krystyna meyers Result [facility] [place] [address] * Differential, auto (11/24/2024 9:18 PM CDT) Neutrophil abs 1.96 1.50 - 6.50 K/cumm Imm gran abs 0.04 0.00 - 0.10 K/cumm [facility] Lymphocyte abs 2.69 0.80 - 3.30 K/cumm [facility] Monocyte abs 0.52 0.20 - 0.80 K/cumm [facility] Eosinophil abs 0.09 0.00 - 0.50 K/cumm [facility] Basophil abs 0.08 0.00 - 0.10 K/cumm [facility] Neutrophil pct 36.4 % [facility] Comment: Interpretive Data Percent cell count reference ranges are not reported, since discordance with absolute values may lead to misinterpretation of CBC data. Current Interpretive Data was last revised on 2017. Imm gran pct 0.7 % [facility] Comment: Interpretive Data Percent cell count reference ranges are not reported, since discordance with absolute values may lead to misinterpretation of CBC data. Current Interpretive Data was last revised on 2017. Lymphocyte pct 50.0 % [facility] Comment: Interpretive Data Percent cell count reference ranges are not reported, since discordance with absolute values may lead to misinterpretation of CBC data. Current Interpretive Data was last revised on 2017. Monocyte pct 9.7 % [facility] Comment: Interpretive Data Percent cell count reference ranges are not reported, since discordance with absolute values may lead to misinterpretation of CBC data. Current Interpretive Data was last revised on 2017. Eosinophil pct 1.7 % [facility] Comment: Interpretive Data Percent cell count reference ranges are not reported, since discordance with absolute values may lead to misinterpretation of CBC data. Current Interpretive Data was last revised on 2017. Basophil pct 1.5 % [facility] Comment: Interpretive Data Percent cell count reference ranges are not reported, since discordance with absolute values may lead to misinterpretation of CBC data. Current Interpretive Data was last revised on 2017. Blood 11/24/2024 9:18 PM CDT 11/24/2024 10:00 PM CDT us Lee Elena MD LAB BLOOD ORDERABLES Krystyna meyers Result [facility] [place] [address] * (ABNORMAL) CBC with auto differential (11/24/2024 9:18 PM CDT) WBC 5.38 3.80 - 9.90 K/cumm Hgb 9.4(L) 11.9 - 15.5 g/dL [facility] Hct 28.7(L) 35.6 - 45.5 % [facility] Plt 437(H) 150 - 400 K/cumm [facility] MPV 9.0(L) 9.1 - 12.3 fL [facility] RBC 2.80(L) 3.90 - 5.20 M/cumm [facility] MCV 102.5(H) 81.3 - 96.4 fL [facility] MCH 33.6(H) 27.1 - 33.3 pg [facility] MCHC 32.8 32.3 - 35.7 g/dL [facility] RDW CV 19.4(H) 11.1 - 14.9 % [facility] RDW SD 73.4(H) 35.7 - 48.1 fL [facility] NRBC abs 0.00 0.00 - 0.01 K/cumm [facility] Blood 11/24/2024 9:18 PM CDT 11/24/2024 10:00 PM CDT Lee Elena MD LAB BLOOD ORDERABLES Krystyna l Result Performing Organization Address [facility] Co de Phone Number [facility] [place] [address] * Protime-INR (11/24/2024 9:18 PM CDT) PT 10.1 9.7 - 13.0 sec INR 0.94 0.90 - 1.20 [facility] Comment: Interpretive data Oral anticoagulant therapeutic ranges: Venous thromboembolism prophylaxis or treatment: 2.0-3.0 CARDIOLOGY Standard range: 2.0-3.0 High-intensity range: 2.5-3.5 Refer to indication-specific guidelines for appropriate target ranges for prosthetic heart valve replacement. Current interpretive data was last revised on 2019. Blood 11/24/2024 9:18 PM CDT 11/24/2024 10:04 PM CDT Lee Elena MD LAB BLOOD ORDERABLES Krystyna l Result Performing Organization Address [facility] Co de Phone Number [facility] [place] [address] * (ABNORMAL) Phosphorus (11/24/2024 9:18 PM CDT) Phosphorus, pl 4.7(H) 2.3 - 4.5 mg/dL Blood 11/24/2024 9:18 PM CDT 11/24/2024 10:00 PM CDT Lee Elena MD LAB BLOOD ORDERABLES Krystyna l Result [facility] [place] [address] * Magnesium (11/24/2024 9:18 PM CDT) Pathologist [facility] Magnesium 2.0 1.4 - 2.5 mg/dL Blood 11/24/2024 9:18 PM CDT 11/24/2024 10:00 PM CDT Lee Elena MD LAB BLOOD ORDERABLES Krystyna l Result Performing Organization Address [facility] Co de Phone Number [facility] [place] [address] * (ABNORMAL) Hepatic function panel (11/24/2024 9:18 PM CDT) Bilirubin, total 0.3 0.1 - 1.2 mg/dL Bilirubin, direct 0.2 0.1 - 0.3 mg/dL [facility] Protein, pl 6.4(L) 6.5 - 8.5 g/dL [facility] Albumin 2.8(L) 3.5 - 5.0 g/dL [facility] Alk phos 148(H) 40 - 130 Units/L [facility] ALT 14 7 - 45 Units/L [facility] AST 38 10 - 45 Units/L [facility] Blood 11/24/2024 9:18 PM CDT 11/24/2024 10:00 PM CDT Lee Elena MD LAB BLOOD ORDERABLES Krystyna l Result Performing Organization Address City/[facility]/ZIP Co de Phone Number [facility] [place] [address] * (ABNORMAL) Basic metabolic panel (11/24/2024 9:18 PM CDT) Sodium 142 135 - 145 mmol/L Potassium, pl 4.1 3.3 - 4.9 mmol/L [facility] Chloride 104 97 - 110 mmol/L [facility] CO2 30 22 - 32 mmol/L [facility] Anion gap 8 2 - 15 mmol/L [facility] BUN 16 6 - 25 mg/dL [facility] Creatinine 0.51(L) 0.60 - 1.10 mg/dL [facility] Glucose 101 70 - 199 mg/dL [facility] [facility] Comment: Interpretive Data Fasting glucose >/= 126 mg/dl is diagnostic for diabetes. Fasting is defined as no caloric intake for at least 8 hours. Fasting glucose between 100 mg/dl to 125 mg/dl is diagnostic of prediabetes. In a patient with classic symptoms of hyperglycemia or hyperglycemic crisis, a random glucose >/= 200 mg/dl is diagnostic for diabetes. In the absence of unequivocal hyperglycemia, results should be confirmed by repeat testing. The classification and Diagnosis of Diabetes Diabetes Care 2021; 46: S19-S40. Current interpretive data was last revised 2022. Calcium 9.0 8.5 - 10.3 mg/dL [facility] Blood 11/24/2024 9:18 PM CDT 11/24/2024 10:00 PM CDT us Lee Elena MD LAB BLOOD ORDERABLES Krystyna l Result Performing Organization Address City/[facility]/ZIP Co de Phone Number [facility] [place] [address] * POCT glucose (11/24/2024 7:49 PM CDT) Glucose, POC 104 70 - 199 mg/dL Blood 11/24/2024 7:49 PM CDT 11/24/2024 7:49 PM CDT us Alex Bailey MD LAB POCT ORDERABLES - DEVICE Fi nal Result Performing Organization Address City/[facility]/ZIP Co de Phone Number [facility] [place] [address] * ECG 12 lead (11/24/2024 7:01 AM CDT) Ventricular Rate EKG/Min 77 BPM [facility] Atrial Rate [address] [facility] AR-Interval (MSEC) 134 ms [facility] QRS-Interval (MSEC) 70 ms [facility] QT-Interval (MSEC) 456 ms [facility] QTc [address] [facility] P Victoria 38 degrees [facility] R Victoria 36 degrees [facility] T Victoria 137 degrees [facility] Diagnosis Normal sinus rhythm Low voltage QRS T wave abnormality, consider lateral ischemia Prolonged QT Abnormal ECG When compared with ECG of 23-NOV-2024 18:23, (unconfirmed) No significant change was found Confirmed by SHALINI RODRIGUEZ M.D ([id number]) on 11/27/2024 12:19:[address] [facility] 11/24/2024 7:01 AM CDT 11/27/2024 12:19 PM CDT us Lee Elena MD ECG ORDERABLES Final Res ult [facility] * eGFR (11/23/2024 10:10 PM CDT) eGFR >90 >=60 mL/min/1. 73 m2 Comment: Interpretive Data Reference Interval Normal >/= 90 mL/min/1.73m2 Mildly decreased* 60 - 89 mL/min/1.73m2 Mildly to moderately decreased 45 - 59 mL/min/1.73m2 Moderately to severely decreased 30 - 44 mL/min/1.73m2 Severely decreased 15 - 29 mL/min/1.73m2 Kidney Failure < 15 mL/min/1.73m2 *Relative to young adult level Estimated glomerular filtration rate is determined by the 2020 CKD-EPI equation recommended by the National Kidney Foundation (A Unifying Approach to GFR Estimation: Recommendations of the NKF-ASK Task Force on Reassessing the Inclusion of Race in Diagnosing Kidney Disease, JASN 2020). The CKD-EPI equation should not be used for patients with unstable renal function and has not been validated in children and those over 70. Current interpretive data was last reviewed 2021. Blood 11/23/2024 10:1 0 PM CDT 11/23/2024 11:09 PM CDT us Lee Elena MD LAB BLOOD ORDERABLES Krystyna meyers Result [facility] [place] [address] * Differential, auto (11/23/2024 10:10 PM CDT) Neutrophil abs 6.22 1.50 - 6.50 K/cumm Imm gran abs 0.05 0.00 - 0.10 K/cumm [facility] Lymphocyte abs 2.05 0.80 - 3.30 K/cumm [facility] Monocyte abs 0.66 0.20 - 0.80 K/cumm [facility] Eosinophil abs 0.10 0.00 - 0.50 K/cumm [facility] Basophil abs 0.08 0.00 - 0.10 K/cumm [facility] Neutrophil pct 67.9 % [facility] Comment: Interpretive Data Percent cell count reference ranges are not reported, since discordance with absolute values may lead to misinterpretation of CBC data. Current Interpretive Data was last revised on 2017. Imm gran pct 0.5 % [facility] Comment: Interpretive Data Percent cell count reference ranges are not reported, since discordance with absolute values may lead to misinterpretation of CBC data. Current Interpretive Data was last revised on 2017. Lymphocyte pct 22.4 % [facility] Comment: Interpretive Data Percent cell count reference ranges are not reported, since discordance with absolute values may lead to misinterpretation of CBC data. Current Interpretive Data was last revised on 2017. Monocyte pct 7.2 % [facility] Comment: Interpretive Data Percent cell count reference ranges are not reported, since discordance with absolute values may lead to misinterpretation of CBC data. Current Interpretive Data was last revised on 2017. Eosinophil pct 1.1 % [facility] Comment: Interpretive Data Percent cell count reference ranges are not reported, since discordance with absolute values may lead to misinterpretation of CBC data. Current Interpretive Data was last revised on 2017. Basophil pct 0.9 % [facility] Comment: Interpretive Data Percent cell count reference ranges are not reported, since discordance with absolute values may lead to misinterpretation of CBC data. Current Interpretive Data was last revised on 2017. Blood 11/23/2024 10:1 0 PM CDT 11/23/2024 11:09 PM CDT us Lee Elena MD LAB BLOOD ORDERABLES Krystyna meyers Result [facility] [place] [address] * (ABNORMAL) CBC with auto differential (11/23/2024 10:10 PM CDT) WBC 9.16 3.80 - 9.90 K/cumm Hgb 9.8(L) 11.9 - 15.5 g/dL [facility] Hct 29.9(L) 35.6 - 45.5 % [facility] Plt 483(H) 150 - 400 K/cumm [facility] MPV 9.2 9.1 - 12.3 fL [facility] RBC 2.92(L) 3.90 - 5.20 M/cumm [facility] MCV 102.4(H) 81.3 - 96.4 fL [facility] MCH 33.6(H) 27.1 - 33.3 pg [facility] MCHC 32.8 32.3 - 35.7 g/dL [facility] RDW CV 19.3(H) 11.1 - 14.9 % [facility] RDW SD 72.0(H) 35.7 - 48.1 fL [facility] NRBC abs 0.00 0.00 - 0.01 K/cumm [facility] Blood 11/23/2024 10:1 0 PM CDT 11/23/2024 11:09 PM CDT Lee Elena MD LAB BLOOD ORDERABLES Krystyna l Result Performing Organization Address [facility] Co de Phone Number [facility] Department [place] [address] * Protime-INR (11/23/2024 10:10 PM CDT) PT 10.5 9.7 - 13.0 sec INR 0.97 0.90 - 1.20 [facility] Comment: Interpretive data Oral anticoagulant therapeutic ranges: Venous thromboembolism prophylaxis or treatment: 2.0-3.0 CARDIOLOGY Standard range: 2.0-3.0 High-intensity range: 2.5-3.5 Refer to indication-specific guidelines for appropriate target ranges for prosthetic heart valve replacement. Current interpretive data was last revised on 2019. Blood 11/23/2024 10:1 0 PM CDT 11/23/2024 11:45 PM CDT Lee Elena MD LAB BLOOD ORDERABLES Krystyna l Result Performing Organization Address [facility] de Phone Number [facility] [place] [address] * (ABNORMAL) Phosphorus (11/23/2024 10:10 PM CDT) Pathologist [facility] Phosphorus, pl 5.5(H) 2.3 - 4.5 mg/dL Blood 11/23/2024 10:1 0 PM CDT 11/23/2024 11:09 PM CDT Lee Elena MD LAB BLOOD ORDERABLES Krystyna l Result Performing Organization Address City/[facility] Co de Phone Number [facility] Department [place] [address] * Magnesium (11/23/2024 10:10 PM CDT) [facility] Magnesium 1.5 1.4 - 2.5 mg/dL Blood 11/23/2024 10:1 0 PM CDT 11/23/2024 11:09 PM CDT Lee Elena MD LAB BLOOD ORDERABLES Krystyna l Result Performing Organization Address [facility] de Phone Number [facility] Department [place] [address] * (ABNORMAL) Hepatic function panel (11/23/2024 10:10 PM CDT) [facility] Bilirubin, total 0.4 0.1 - 1.2 mg/dL Bilirubin, direct 0.2 0.1 - 0.3 mg/dL [facility] Protein, pl 6.3(L) 6.5 - 8.5 g/dL [facility] Albumin 2.9(L) 3.5 - 5.0 g/dL [facility] Alk phos 143(H) 40 - 130 Units/L [facility] ALT 14 7 - 45 Units/L [facility] AST 37 10 - 45 Units/L [facility] Blood 11/23/2024 10:1 0 PM CDT 11/23/2024 11:09 PM CDT Lee Elena MD LAB BLOOD ORDERABLES Krystyna l Result Performing Organization Address [facility] de Phone Number [facility] Department [place] [address] * (ABNORMAL) Basic metabolic panel (11/23/2024 10:10 PM CDT) [facility] Sodium 140 135 - 145 mmol/L Potassium, pl 3.6 3.3 - 4.9 mmol/L [facility] Chloride 100 97 - 110 mmol/L [facility] CO2 31 22 - 32 mmol/L [facility] Anion gap 9 2 - 15 mmol/L [facility] BUN 15 6 - 25 mg/dL [facility] Creatinine 0.52(L) 0.60 - 1.10 mg/dL [facility] Glucose 90 70 - 199 mg/dL [facility] Comment: Interpretive Data Fasting glucose >/= 126 mg/dl is diagnostic for diabetes. Fasting is defined as no caloric intake for at least 8 hours. Fasting glucose between 100 mg/dl to 125 mg/dl is diagnostic of prediabetes. In a patient with classic symptoms of hyperglycemia or hyperglycemic crisis, a random glucose >/= 200 mg/dl is diagnostic for diabetes. In the absence of unequivocal hyperglycemia, results should be confirmed by repeat testing. The classification and Diagnosis of Diabetes Diabetes Care 2021; 46: S19-S40. Current interpretive data was last revised 2022. Calcium 9.5 8.5 - 10.3 mg/dL [facility] Blood 11/23/2024 10:1 0 PM CDT 11/23/2024 11:09 PM CDT us Lee Elena MD LAB BLOOD ORDERABLES Krystyna l Result Performing Organization Address City/[facility]/ZIP Co de Phone Number [facility] [place] [address] * POCT glucose (11/23/2024 9:14 PM CDT) Glucose, POC 107 70 - 199 mg/dL Blood 11/23/2024 9:14 PM CDT 11/23/2024 9:14 PM CDT us Alex Bailey MD LAB POCT ORDERABLES - DEVICE Fi nal Result [facility] [place] [address] * ECG 12 lead (11/23/2024 6:23 PM CDT) Ventricular Rate EKG/Min 84 BPM [facility] Atrial Rate 84 BPM [facility] AR-Interval (MSEC) 118 ms [facility] QRS-Interval (MSEC) [address] [facility] QT-Interval (MSEC) [address] [facility] QTc [address] [facility] P Victoria [address] [facility] R Victoria [address] [facility] T Victoria [address] [facility] Diagnosis Normal sinus rhythm T wave abnormality, consider lateral ischemia Prolonged QT Abnormal ECG When compared with ECG of 20-NOV-2024 13:20, No significant change was found Confirmed by SHALINI RODRIGUEZ M.D ([id number]) on 11/27/2024 12:19:[address] [facility] 11/23/2024 6:23 PM CDT 11/27/2024 12:19 PM CDT us Lee Elena MD ECG ORDERABLES Final Res ult [facility] * eGFR (11/22/2024 9:37 PM CDT) eGFR >90 >=60 mL/min/1. 73 m2 Comment: Interpretive Data Reference Interval Normal >/= 90 mL/min/1.73m2 Mildly decreased* 60 - 89 mL/min/1.73m2 Mildly to moderately decreased 45 - 59 mL/min/1.73m2 Moderately to severely decreased 30 - 44 mL/min/1.73m2 Severely decreased 15 - 29 mL/min/1.73m2 Kidney Failure < 15 mL/min/1.73m2 *Relative to young adult level Estimated glomerular filtration rate is determined by the 2020 CKD-EPI equation recommended by the National Kidney Foundation (A Unifying Approach to GFR Estimation: Recommendations of the NKF-ASK Task Force on Reassessing the Inclusion of Race in Diagnosing Kidney Disease, JASN 2020). The CKD-EPI equation should not be used for patients with unstable renal function and has not been validated in children and those over 70. Current interpretive data was last reviewed 2021. Blood 11/22/2024 9:37 PM CDT 11/22/2024 10:33 PM CDT us Lee Elena MD LAB BLOOD ORDERABLES Krystyna mira Result [facility] [place] [address] * (ABNORMAL) Differential, auto (11/22/2024 9:37 PM CDT) Neutrophil abs 3.27 1.50 - 6.50 K/cumm Imm gran abs 0.06 0.00 - 0.10 K/cumm [facility] Lymphocyte abs 2.86 0.80 - 3.30 K/cumm [facility] Monocyte abs 0.70 0.20 - 0.80 K/cumm [facility] Eosinophil abs 0.15 0.00 - 0.50 K/cumm [facility] Basophil abs 0.11(H) 0.00 - 0.10 K/cumm [facility] Neutrophil pct 45.8 % [facility] Comment: Interpretive Data Percent cell count reference ranges are not reported, since discordance with absolute values may lead to misinterpretation of CBC data. Current Interpretive Data was last revised on 2017. Imm gran pct 0.8 % [facility] Comment: Interpretive Data Percent cell count reference ranges are not reported, since discordance with absolute values may lead to misinterpretation of CBC data. Current Interpretive Data was last revised on 2017. Lymphocyte pct 40.0 % [facility] Comment: Interpretive Data Percent cell count reference ranges are not reported, since discordance with absolute values may lead to misinterpretation of CBC data. Current Interpretive Data was last revised on 2017. Monocyte pct 9.8 % [facility] Comment: Interpretive Data Percent cell count reference ranges are not reported, since discordance with absolute values may lead to misinterpretation of CBC data. Current Interpretive Data was last revised on 2017. Eosinophil pct 2.1 % [facility] Comment: Interpretive Data Percent cell count reference ranges are not reported, since discordance with absolute values may lead to misinterpretation of CBC data. Current Interpretive Data was last revised on 2017. Basophil pct 1.5 % [facility] Comment: Interpretive Data Percent cell count reference ranges are not reported, since discordance with absolute values may lead to misinterpretation of CBC data. Current Interpretive Data was last revised on 2017. Blood 11/22/2024 9:37 PM CDT 11/22/2024 10:34 PM CDT Lee Elena MD LAB BLOOD ORDERABLES Krystyna l Result Performing Organization Address [facility]/ZIP Co de Phone Number [facility] [place] [address] * (ABNORMAL) CBC with auto differential (11/22/2024 9:37 PM CDT) WBC 7.15 3.80 - 9.90 K/cumm Hgb 9.4(L) 11.9 - 15.5 g/dL [facility] Hct 28.9(L) 35.6 - 45.5 % [facility] Plt 542(H) 150 - 400 K/cumm [facility] MPV 9.4 9.1 - 12.3 fL [facility] RBC 2.81(L) 3.90 - 5.20 M/cumm [facility] MCV 102.8(H) 81.3 - 96.4 fL [facility] MCH 33.5(H) 27.1 - 33.3 pg [facility] MCHC 32.5 32.3 - 35.7 g/dL [facility] RDW CV 19.6(H) 11.1 - 14.9 % [facility] RDW SD 73.3(H) 35.7 - 48.1 fL [facility] NRBC abs 0.00 0.00 - 0.01 K/cumm [facility] Blood 11/22/2024 9:37 PM CDT 11/22/2024 10:34 PM CDT Lee Elena MD LAB BLOOD ORDERABLES Krystyna l Result Performing Organization Address [facility]/ZIP Co de Phone Number [facility] [place] [address] * Protime-INR (11/22/2024 9:37 PM CDT) PT 10.1 9.7 - 13.0 sec INR 0.94 0.90 - 1.20 [facility] Comment: Interpretive data Oral anticoagulant therapeutic ranges: Venous thromboembolism prophylaxis or treatment: 2.0-3.0 CARDIOLOGY Standard range: 2.0-3.0 High-intensity range: 2.5-3.5 Refer to indication-specific guidelines for appropriate target ranges for prosthetic heart valve replacement. Current interpretive data was last revised on 2019. Blood 11/22/2024 9:37 PM CDT 11/22/2024 10:54 PM CDT Lee Elena MD LAB BLOOD ORDERABLES Krystyna l Result Performing Organization Address [facility] Co de Phone Number [facility] [place] [address] * (ABNORMAL) Phosphorus (11/22/2024 9:37 PM CDT) Pathologist [facility] Phosphorus, pl 4.9(H) 2.3 - 4.5 mg/dL Blood 11/22/2024 9:37 PM CDT 11/22/2024 10:33 PM CDT Lee Elena MD LAB BLOOD ORDERABLES Krystyna l Result [facility] [place] [address] * Magnesium (11/22/2024 9:37 PM CDT) Pathologist [facility] Magnesium 1.6 1.4 - 2.5 mg/dL Blood 11/22/2024 9:37 PM CDT 11/22/2024 10:33 PM CDT Lee Elena MD LAB BLOOD ORDERABLES Krystyna l Result Performing Organization Address City/[facility]/ZIP Co de Phone Number [facility] [place] [address] * (ABNORMAL) Hepatic function panel (11/22/2024 9:37 PM CDT) Bilirubin, total 0.4 0.1 - 1.2 mg/dL Bilirubin, direct 0.2 0.1 - 0.3 mg/dL [facility] Protein, pl 6.0(L) 6.5 - 8.5 g/dL [facility] Albumin 2.6(L) 3.5 - 5.0 g/dL [facility] Alk phos 163(H) 40 - 130 Units/L [facility] ALT 12 7 - 45 Units/L [facility] AST 41 10 - 45 Units/L [facility] Blood 11/22/2024 9:37 PM CDT 11/22/2024 10:33 PM CDT Lee Elena MD LAB BLOOD ORDERABLES Krystyna l Result Performing Organization Address [facility] Co de Phone Number [facility] [place] [address] * (ABNORMAL) Basic metabolic panel (11/22/2024 9:37 PM CDT) Pathologist [facility] Sodium 138 135 - 145 mmol/L Potassium, pl 4.3 3.3 - 4.9 mmol/L [facility] Chloride 97 97 - 110 mmol/L [facility] CO2 32 22 - 32 mmol/L [facility] Anion gap 9 2 - 15 mmol/L [facility] BUN 17 6 - 25 mg/dL [facility] Creatinine 0.52(L) 0.60 - 1.10 mg/dL [facility] Glucose 104 70 - 199 mg/dL [facility] Comment: Interpretive Data Fasting glucose >/= 126 mg/dl is diagnostic for diabetes. Fasting is defined as no caloric intake for at least 8 hours. Fasting glucose between 100 mg/dl to 125 mg/dl is diagnostic of prediabetes. In a patient with classic symptoms of hyperglycemia or hyperglycemic crisis, a random glucose >/= 200 mg/dl is diagnostic for diabetes. In the absence of unequivocal hyperglycemia, results should be confirmed by repeat testing. The classification and Diagnosis of Diabetes Diabetes Care 202; 46: S19-S40. Current interpretive data was last revised 2022. Calcium 8.8 8.5 - 10.3 mg/dL [facility] Blood 11/22/2024 9:37 PM CDT 11/22/2024 10:33 PM CDT us Lee Elena MD LAB BLOOD ORDERABLES Krystyna l Result [facility] [place] [address] * eGFR (11/21/2024 10:49 PM CDT) eGFR >90 >=60 mL/min/1. 73 m2 Comment: Interpretive Data Reference Interval Normal >/= 90 mL/min/1.73m2 Mildly decreased* 60 - 89 mL/min/1.73m2 Mildly to moderately decreased 45 - 59 mL/min/1.73m2 Moderately to severely decreased 30 - 44 mL/min/1.73m2 Severely decreased 15 - 29 mL/min/1.73m2 Kidney Failure < 15 mL/min/1.73m2 *Relative to young adult level Estimated glomerular filtration rate is determined by the 2020 CKD-EPI equation recommended by the National Kidney Foundation (A Unifying Approach to GFR Estimation: Recommendations of the NKF-ASK Task Force on Reassessing the Inclusion of Race in Diagnosing Kidney Disease, JASN 2020). The CKD-EPI equation should not be used for patients with unstable renal function and has not been validated in children and those over 70. Current interpretive data was last reviewed 2021. Blood 11/21/2024 10:4 9 PM CDT 11/22/2024 12:32 AM CDT us Lee Elena MD LAB BLOOD ORDERABLES Krystyna l Result [facility] [place] [address] * (ABNORMAL) Differential, auto (11/21/2024 10:49 PM CDT) Neutrophil abs 2.76 1.50 - 6.50 K/cumm Imm gran abs 0.05 0.00 - 0.10 K/cumm [facility] Lymphocyte abs 3.11 0.80 - 3.30 K/cumm [facility] Monocyte abs 0.61 0.20 - 0.80 K/cumm [facility] Eosinophil abs 0.17 0.00 - 0.50 K/cumm [facility] Basophil abs 0.14(H) 0.00 - 0.10 K/cumm [facility] Neutrophil pct 40.4 % [facility] Comment: Interpretive Data Percent cell count reference ranges are not reported, since discordance with absolute values may lead to misinterpretation of CBC data. Current Interpretive Data was last revised on 2017. Imm gran pct 0.7 % [facility] Comment: Interpretive Data Percent cell count reference ranges are not reported, since discordance with absolute values may lead to misinterpretation of CBC data. Current Interpretive Data was last revised on 2017. Lymphocyte pct 45.5 % [facility] Comment: Interpretive Data Percent cell count reference ranges are not reported, since discordance with absolute values may lead to misinterpretation of CBC data. Current Interpretive Data was last revised on 2017. Monocyte pct 8.9 % [facility] Comment: Interpretive Data Percent cell count reference ranges are not reported, since discordance with absolute values may lead to misinterpretation of CBC data. Current Interpretive Data was last revised on 2017. Eosinophil pct 2.5 % [facility] Comment: Interpretive Data Percent cell count reference ranges are not reported, since discordance with absolute values may lead to misinterpretation of CBC data. Current Interpretive Data was last revised on 2017. Basophil pct 2.0 % [facility] Comment: Interpretive Data Percent cell count reference ranges are not reported, since discordance with absolute values may lead to misinterpretation of CBC data. Current Interpretive Data was last revised on 2017. Blood 11/21/2024 10:4 9 PM CDT 11/22/2024 12:33 AM CDT Lee Elena MD LAB BLOOD ORDERABLES Krystyna l Result Performing Organization Address [facility] Co de Phone Number [facility] [place] [address] * (ABNORMAL) CBC with auto differential (11/21/2024 10:49 PM CDT) WBC 6.84 3.80 - 9.90 K/cumm Hgb 10.1(L) 11.9 - 15.5 g/dL [facility] Hct 30.3(L) 35.6 - 45.5 % [facility] Plt 610(H) 150 - 400 K/cumm [facility] MPV 9.3 9.1 - 12.3 fL [facility] [facility] RBC 2.98(L) 3.90 - 5.20 M/cumm [facility] MCV 101.7(H) 81.3 - 96.4 fL [facility] MCH 33.9(H) 27.1 - 33.3 pg [facility] MCHC 33.3 32.3 - 35.7 g/dL [facility] RDW CV 19.7(H) 11.1 - 14.9 % [facility] RDW SD 71.9(H) 35.7 - 48.1 fL [facility] NRBC abs 0.00 0.00 - 0.01 K/cumm [facility] Blood 11/21/2024 10:4 9 PM CDT 11/22/2024 12:33 AM CDT Lee Elena MD LAB BLOOD ORDERABLES Krystyna l Result Performing Organization Address City/[facility]/ZIP Co de Phone Number [facility] [place] [address] * Protime-INR (11/21/2024 10:49 PM CDT) PT 10.7 9.7 - 13.0 sec INR 0.99 0.90 - 1.20 [facility] Comment: Interpretive data Oral anticoagulant therapeutic ranges: Venous thromboembolism prophylaxis or treatment: 2.0-3.0 CARDIOLOGY Standard range: 2.0-3.0 High-intensity range: 2.5-3.5 Refer to indication-specific guidelines for appropriate target ranges for prosthetic heart valve replacement. Current interpretive data was last revised on 2019. Blood 11/21/2024 10:4 9 PM CDT 11/22/2024 12:42 AM CDT Lee Elena MD LAB BLOOD ORDERABLES Krystyna l Result Performing Organization Address [facility] de Phone Number [facility] Department [place] [address] * (ABNORMAL) Phosphorus (11/21/2024 10:49 PM CDT) Pathologist [facility] Phosphorus, pl 5.4(H) 2.3 - 4.5 mg/dL Blood 11/21/2024 10:4 9 PM CDT 11/22/2024 12:32 AM CDT Result [facility] Lee Elena MD LAB BLOOD ORDERABLES Krystyna l Result Performing Organization Address City/[facility] de Phone Number [facility] [place] [address] * Magnesium (11/21/2024 10:49 PM CDT) Pathologist [facility] Magnesium 1.8 1.4 - 2.5 mg/dL Blood 11/21/2024 10:4 9 PM CDT 11/22/2024 12:32 AM CDT Lee Elena MD LAB BLOOD ORDERABLES Krystyna l Result Performing Organization Address [facility] Co de Phone Number [facility] Department [place] [address] * (ABNORMAL) Hepatic function panel (11/21/2024 10:49 PM CDT) Pathologist [facility] Bilirubin, total 0.4 0.1 - 1.2 mg/dL Bilirubin, direct 0.3 0.1 - 0.3 mg/dL [facility] Protein, pl 6.2(L) 6.5 - 8.5 g/dL [facility] Albumin 2.4(L) 3.5 - 5.0 g/dL [facility] Alk phos 173(H) 40 - 130 Units/L [facility] ALT 12 7 - 45 Units/L [facility] AST 41 10 - 45 Units/L [facility] Blood 11/21/2024 10:4 9 PM CDT 11/22/2024 12:32 AM CDT Lee Elena MD LAB BLOOD ORDERABLES Krystyna l Result Performing Organization Address [facility] de Phone Number [facility] Department [place] [address] * (ABNORMAL) Basic metabolic panel (11/21/2024 10:49 PM CDT) [facility] Sodium 141 135 - 145 mmol/L Potassium, pl 3.9 3.3 - 4.9 mmol/L [facility] Chloride 100 97 - 110 mmol/L [facility] CO2 31 22 - 32 mmol/L [facility] Anion gap 10 2 - 15 mmol/L [facility] BUN 16 6 - 25 mg/dL [facility] Creatinine 0.39(L) 0.60 - 1.10 mg/dL [facility] Glucose 96 70 - 199 mg/dL [facility] Comment: Interpretive Data Fasting glucose >/= 126 mg/dl is diagnostic for diabetes. Fasting is defined as no caloric intake for at least 8 hours. Fasting glucose between 100 mg/dl to 125 mg/dl is diagnostic of prediabetes. In a patient with classic symptoms of hyperglycemia or hyperglycemic crisis, a random glucose >/= 200 mg/dl is diagnostic for diabetes. In the absence of unequivocal hyperglycemia, results should be confirmed by repeat testing. The classification and Diagnosis of Diabetes Diabetes Care 2021; 46: S19-S40. Current interpretive data was last revised 2022. Calcium 9.1 8.5 - 10.3 mg/dL [facility] Blood 11/21/2024 10:4 9 PM CDT 11/22/2024 12:32 AM CDT us Lee Elena MD LAB BLOOD ORDERABLES Krystyna l Result [facility] Department [place] [address] * Potassium, whole blood (11/20/2024 10:45 PM CDT) Pathologist [facility] Potassium, bld 4.0 3.3 - 4.9 mmol/L Blood 11/20/2024 10:4 5 PM CDT 11/20/2024 10:51 PM CDT us Martita Hussein MD LAB BLOOD ORDERABLE S Final Result Performing Organization Address City/[facility]/ZIP Co de Phone Number [facility] Department [place] [address] * eGFR (11/20/2024 7:07 PM CDT) Pathologist [facility] eGFR >90 >=60 mL/min/1. 73 m2 Comment: Interpretive Data Reference Interval Normal >/= 90 mL/min/1.73m2 Mildly decreased* 60 - 89 mL/min/1.73m2 Mildly to moderately decreased 45 - 59 mL/min/1.73m2 Moderately to severely decreased 30 - 44 mL/min/1.73m2 Severely decreased 15 - 29 mL/min/1.73m2 Kidney Failure < 15 mL/min/1.73m2 *Relative to young adult level Estimated glomerular filtration rate is determined by the 2020 CKD-EPI equation recommended by the National Kidney Foundation (A Unifying Approach to GFR Estimation: Recommendations of the NKF-ASK Task Force on Reassessing the Inclusion of Race in Diagnosing Kidney Disease, JASN 202). The CKD-EPI equation should not be used for patients with unstable renal function and has not been validated in children and those over 70. Current interpretive data was last reviewed 2021. Blood 11/20/2024 7:07 PM CDT 11/20/2024 7:32 PM CDT us Lee Elena MD LAB BLOOD ORDERABLES Krystyna meyers Result [facility] [place] [address] * Differential, auto (11/20/2024 7:07 PM CDT) Neutrophil abs 3.09 1.50 - 6.50 K/cumm Imm gran abs 0.09 0.00 - 0.10 K/cumm [facility] Lymphocyte abs 3.30 0.80 - 3.30 K/cumm [facility] Monocyte abs 0.65 0.20 - 0.80 K/cumm [facility] Eosinophil abs 0.15 0.00 - 0.50 K/cumm [facility] Basophil abs 0.09 0.00 - 0.10 K/cumm [facility] Neutrophil pct 42.0 % [facility] Comment: Interpretive Data Percent cell count reference ranges are not reported, since discordance with absolute values may lead to misinterpretation of CBC data. Current Interpretive Data was last revised on 2017. Imm gran pct 1.2 % [facility] Comment: Interpretive Data Percent cell count reference ranges are not reported, since discordance with absolute values may lead to misinterpretation of CBC data. Current Interpretive Data was last revised on 2017. Lymphocyte pct 44.8 % [facility] Comment: Interpretive Data Percent cell count reference ranges are not reported, since discordance with absolute values may lead to misinterpretation of CBC data. Current Interpretive Data was last revised on 2017. Monocyte pct 8.8 % [facility] Comment: Interpretive Data Percent cell count reference ranges are not reported, since discordance with absolute values may lead to misinterpretation of CBC data. Current Interpretive Data was last revised on 2017. Eosinophil pct 2.0 % [facility] Comment: Interpretive Data Percent cell count reference ranges are not reported, since discordance with absolute values may lead to misinterpretation of CBC data. Current Interpretive Data was last revised on 2017. Basophil pct 1.2 % [facility] Comment: Interpretive Data Percent cell count reference ranges are not reported, since discordance with absolute values may lead to misinterpretation of CBC data. Current Interpretive Data was last revised on 2017. Blood 11/20/2024 7:07 PM CDT 11/20/2024 7:32 PM CDT us Lee Elena MD LAB BLOOD ORDERABLES Krystyna meyers Result [facility] Department [place] [address] * (ABNORMAL) CBC with auto differential (11/20/2024 7:07 PM CDT) WBC 7.37 3.80 - 9.90 K/cumm Hgb 10.1(L) 11.9 - 15.5 g/dL [facility] Hct 31.3(L) 35.6 - 45.5 % [facility] Plt 651(H) 150 - 400 K/cumm [facility] MPV 9.4 9.1 - 12.3 fL [facility] RBC 3.07(L) 3.90 - 5.20 M/cumm [facility] MCV 102.0(H) 81.3 - 96.4 fL [facility] MCH 32.9 27.1 - 33.3 pg [facility] MCHC 32.3 32.3 - 35.7 g/dL [facility] RDW CV 20.5(H) 11.1 - 14.9 % [facility] RDW SD 76.1(H) 35.7 - 48.1 fL [facility] NRBC abs 0.00 0.00 - 0.01 K/cumm [facility] Blood 11/20/2024 7:07 PM CDT 11/20/2024 7:32 PM CDT Lee Elena MD LAB BLOOD ORDERABLES Krystyna l Result Performing Organization Address [facility] de Phone Number [facility] [place] [address] * (ABNORMAL) aPTT (11/20/2024 7:07 PM CDT) aPTT 52(H) 28 - 38 sec Comment: Interpretive Data Heparin therapeutic range: 66.0 - 100.0 seconds. Range based on correlation with therapeutic heparin activity range of 0.3 - 0.7 Units/mL. Current interpretive data was last revised on 2023. Blood 11/20/2024 7:07 PM CDT 11/20/2024 7:38 PM CDT Narrative [facility] - 11/20/2024 7:48 PM CDT Baseline prior to enoxaparin initiation. Alex Bailey MD LAB BLOOD ORDERABLES Final Resu lt Performing Organization Address [facility] de Phone Number [facility] [place] [address] * Protime-INR (11/20/2024 7:07 PM CDT) PT 11.1 9.7 - 13.0 sec INR 1.03 0.90 - 1.20 [facility] Comment: Interpretive data Oral anticoagulant therapeutic ranges: Venous thromboembolism prophylaxis or treatment: 2.0-3.0 CARDIOLOGY Standard range: 2.0-3.0 High-intensity range: 2.5-3.5 Refer to indication-specific guidelines for appropriate target ranges for prosthetic heart valve replacement. Current interpretive data was last revised on 2019. Blood 11/20/2024 7:07 PM CDT 11/20/2024 7:34 PM CDT Lee Elena MD LAB BLOOD ORDERABLES Krystyna l Result Performing Organization Address [facility] Co de Phone Number [facility] [employer] [place], [place] [id number] * (ABNORMAL) Phosphorus (11/20/2024 7:07 PM CDT) Phosphorus, pl 5.4(H) 2.3 - 4.5 mg/dL Blood 11/20/2024 7:07 PM CDT 11/20/2024 7:32 PM CDT Lee Elena MD LAB BLOOD ORDERABLES Krystyna l Result Performing Organization Address [facility] Co de Phone Number [facility] [place] [address] * Magnesium (11/20/2024 7:07 PM CDT) Magnesium 1.7 1.4 - 2.5 mg/dL Blood 11/20/2024 7:07 PM CDT 11/20/2024 7:32 PM CDT Lee Elena MD LAB BLOOD ORDERABLES Krystyna l Result Performing Organization Address [facility] Co de Phone Number [facility] [place] [address] * (ABNORMAL) Hepatic function panel (11/20/2024 7:07 PM CDT) Bilirubin, total 0.4 0.1 - 1.2 mg/dL Bilirubin, direct 0.2 0.1 - 0.3 mg/dL [facility] Comment:Hemolyzed; result ma y be falsely decreased Protein, pl 6.3(L) 6.5 - 8.5 g/dL [facility] Albumin 2.6(L) 3.5 - 5.0 g/dL [facility] Alk phos 193(H) 40 - 130 Units/L [facility] ALT 12 7 - 45 Units/L [facility] AST 55(H) 10 - 45 Units/L [facility] Comment:Hemolyzed; result ma y be falsely elevated Blood 11/20/2024 7:07 PM CDT 11/20/2024 7:32 PM CDT us Lee Elena MD LAB BLOOD ORDERABLES Krystyna meyers Result [facility] Department [place] [address] * Basic metabolic panel (11/20/2024 7:07 PM CDT) Sodium 142 135 - 145 mmol/L Potassium, pl 4.3 3.3 - 4.9 mmol/L [facility] Comment:Hemolyzed; Potassium value may be falsely elevated by as much as 0.3-0.5 mmol/L. Suggest redraw and reanalysis. Chloride 103 97 - 110 mmol/L [facility] CO2 27 22 - 32 mmol/L [facility] Anion gap 12 2 - 15 mmol/L [facility] BUN 16 6 - 25 mg/dL [facility] Creatinine 0.66 0.60 - 1.10 mg/dL [facility] Glucose 95 70 - 199 mg/dL [facility] Comment: Interpretive Data Fasting glucose >/= 126 mg/dl is diagnostic for diabetes. Fasting is defined as no caloric intake for at least 8 hours. Fasting glucose between 100 mg/dl to 125 mg/dl is diagnostic of prediabetes. In a patient with classic symptoms of hyperglycemia or hyperglycemic crisis, a random glucose >/= 200 mg/dl is diagnostic for diabetes. In the absence of unequivocal hyperglycemia, results should be confirmed by repeat testing. The classification and Diagnosis of Diabetes Diabetes Care 2021; 46: S19-S40. Current interpretive data was last revised 2022. Calcium 9.0 8.5 - 10.3 mg/dL [facility] Blood 11/20/2024 7:07 PM CDT 11/20/2024 7:32 PM CDT Lee Elena MD LAB BLOOD ORDERABLES Krystyna l Result Performing Organization Address City/[facility]/ZIP Co de Phone Number [facility] [place] [address] * ECG 12 lead (11/20/2024 1:20 PM CDT) [facility] Ventricular Rate EKG/Min 78 BPM [facility] Atrial Rate 78 BPM [facility] AR-Interval (MSEC) 126 ms [facility] QRS-Interval (MSEC) 68 ms [facility] QT-Interval (MSEC) 448 ms [facility] QTc [address] [facility] P [place] [address] [facility] R [place] [address] [facility] T [place] [address] [facility] Diagnosis Normal sinus rhythm T wave abnormality, consider lateral ischemia Prolonged QT Abnormal ECG When compared with ECG of 18-NOV-2024 13:40, (unconfirmed) Nonspecific T wave abnormality no longer evident in Inferior leads T wave inversion less evident in Lateral leads Confirmed by SHALINI RODRIGUEZ M.D ([id number]) on 11/21/2024 9:46:[address] [facility] 11/20/2024 1:20 PM CDT 11/21/2024 9:46 AM CDT us Lee Elena MD ECG ORDERABLES Final Res ult [facility] * [facility]omics Specimen Tracking Order Blood (11/20/2024 10:37 AM CDT) [facility] Genomics Tracking Order Received Blood 11/20/2024 10:3 7 AM CDT 11/20/2024 11:49 AM CDT Narrative [facility] - 11/29/2024 1:58 PM CDT Please read the Gen[facility] Epic requisition for specimen collection requirements. Akash Sharma MD LAB BODY FLUIDS AND STOOLS ORDERABLES Final Result SHONA [facility] [place] [address] * Genomics ([facility]) (11/20/2024 12:00 AM CDT) Blood (Peripheral Blood For Pathologist Review) 11/20/2024 11/20/2024 Narrative [facility] - CYTOGENETICS - 12/19/2024 12:31 PM CDT REPORT IMAGES AND/OR SCANNED DOCUMENTS ONLY VIEWABLE IN PDF FORMAT Akash Sharma MD LAB GENETIC TEST ING Edited Result - Final [facility] - CYTOGENETICS [address] [place] [address] * eGFR (11/19/2024 8:20 PM CDT) eGFR >90 >=60 mL/min/1. 73 m2 Comment: Interpretive Data Reference Interval Normal >/= 90 mL/min/1.73m2 Mildly decreased* 60 - 89 mL/min/1.73m2 Mildly to moderately decreased 45 - 59 mL/min/1.73m2 Moderately to severely decreased 30 - 44 mL/min/1.73m2 Severely decreased 15 - 29 mL/min/1.73m2 Kidney Failure < 15 mL/min/1.73m2 *Relative to young adult level Estimated glomerular filtration rate is determined by the 2020 CKD-EPI equation recommended by the National Kidney Foundation (A Unifying Approach to GFR Estimation: Recommendations of the NKF-ASK Task Force on Reassessing the Inclusion of Race in Diagnosing Kidney Disease, JASN 2020). The CKD-EPI equation should not be used for patients with unstable renal function and has not been validated in children and those over 70. Current interpretive data was last reviewed 2021. Blood 11/19/2024 8:20 PM CDT 11/19/2024 9:32 PM CDT us Lee Eelna MD LAB BLOOD ORDERABLES Krystyna mira Result [facility] [place] [address] * Differential, auto (11/19/2024 8:20 PM CDT) Neutrophil abs 3.74 1.50 - 6.50 K/cumm Imm gran abs 0.06 0.00 - 0.10 K/cumm [facility] Lymphocyte abs 2.61 0.80 - 3.30 K/cumm [facility] Monocyte abs 0.72 0.20 - 0.80 K/cumm [facility] Eosinophil abs 0.09 0.00 - 0.50 K/cumm [facility] Basophil abs 0.08 0.00 - 0.10 K/cumm [facility] Neutrophil pct 51.2 % [facility] Comment: Interpretive Data Percent cell count reference ranges are not reported, since discordance with absolute values may lead to misinterpretation of CBC data. Current Interpretive Data was last revised on 2017. Imm gran pct 0.8 % [facility] Comment: Interpretive Data Percent cell count reference ranges are not reported, since discordance with absolute values may lead to misinterpretation of CBC data. Current Interpretive Data was last revised on 2017. Lymphocyte pct 35.8 % [facility] Comment: Interpretive Data Percent cell count reference ranges are not reported, since discordance with absolute values may lead to misinterpretation of CBC data. Current Interpretive Data was last revised on 2017. Monocyte pct 9.9 % [facility] Comment: Interpretive Data Percent cell count reference ranges are not reported, since discordance with absolute values may lead to misinterpretation of CBC data. Current Interpretive Data was last revised on 2017. Eosinophil pct 1.2 % [facility] Comment: Interpretive Data Percent cell count reference ranges are not reported, since discordance with absolute values may lead to misinterpretation of CBC data. Current Interpretive Data was last revised on 2017. Basophil pct 1.1 % [facility] Comment: Interpretive Data Percent cell count reference ranges are not reported, since discordance with absolute values may lead to misinterpretation of CBC data. Current Interpretive Data was last revised on 2017. Blood 11/19/2024 8:20 PM CDT 11/19/2024 9:33 PM CDT Lee Elena MD LAB BLOOD ORDERABLES Krystyna l Result Performing Organization Address [facility] Co de Phone Number [facility] [place] [address] * (ABNORMAL) CBC with auto differential (11/19/2024 8:20 PM CDT) WBC 7.30 3.80 - 9.90 K/cumm Hgb 9.1(L) 11.9 - 15.5 g/dL [facility] Hct 27.7(L) 35.6 - 45.5 % [facility] Plt 627(H) 150 - 400 K/cumm [facility] MPV 9.9 9.1 - 12.3 fL [facility] RBC 2.75(L) 3.90 - 5.20 M/cumm [facility] MCV 100.7(H) 81.3 - 96.4 fL [facility] MCH 33.1 27.1 - 33.3 pg [facility] MCHC 32.9 32.3 - 35.7 g/dL [facility] RDW CV 20.7(H) 11.1 - 14.9 % [facility] RDW SD 75.5(H) 35.7 - 48.1 fL [facility] NRBC abs 0.00 0.00 - 0.01 K/cumm [facility] Blood 11/19/2024 8:20 PM CDT 11/19/2024 9:33 PM CDT Lee Elena MD LAB BLOOD ORDERABLES Krystyna l Result Performing Organization Address City/[facility]/[place] [address] * Protime-INR (11/19/2024 8:20 PM CDT) Pathologist [facility] PT 10.6 9.7 - 13.0 sec INR 0.98 0.90 - 1.20 [facility] Comment: Interpretive data Oral anticoagulant therapeutic ranges: Venous thromboembolism prophylaxis or treatment: 2.0-3.0 CARDIOLOGY Standard range: 2.0-3.0 High-intensity range: 2.5-3.5 Refer to indication-specific guidelines for appropriate target ranges for prosthetic heart valve replacement. Current interpretive data was last revised on 2019. Blood 11/19/2024 8:20 PM CDT 11/19/2024 9:36 PM CDT Lee Elena MD LAB BLOOD ORDERABLES Krystyna l Result Performing Organization Address [facility] [place] [address] * Phosphorus (11/19/2024 8:20 PM CDT) [facility] Phosphorus, pl 4.2 2.3 - 4.5 mg/dL Blood 11/19/2024 8:20 PM CDT 11/19/2024 9:32 PM CDT Lee Elena MD LAB BLOOD ORDERABLES Krystyna l Result Performing Organization Address [facility] [place] [address] * Magnesium (11/19/2024 8:20 PM CDT) [facility] Magnesium 2.0 1.4 - 2.5 mg/dL Blood 11/19/2024 8:20 PM CDT 11/19/2024 9:32 PM CDT Lee Elena MD LAB BLOOD ORDERABLES Krystyna l Result Performing Organization Address City/[facility] Co de Phone Number [facility] [place] [address] * (ABNORMAL) Hepatic function panel (11/19/2024 8:20 PM CDT) Pathologist [facility] Bilirubin, total 0.4 0.1 - 1.2 mg/dL Bilirubin, direct 0.3 0.1 - 0.3 mg/dL [facility] Protein, pl 5.7(L) 6.5 - 8.5 g/dL [facility] Albumin 2.2(L) 3.5 - 5.0 g/dL [facility] Alk phos 189(H) 40 - 130 Units/L [facility] ALT 12 7 - 45 Units/L [facility] AST 49(H) 10 - 45 Units/L [facility] Blood 11/19/2024 8:20 PM CDT 11/19/2024 9:32 PM CDT Lee Elena MD LAB BLOOD ORDERABLES Krystyna l Result Performing Organization Address [facility] Co de Phone Number [facility] [place] [address] * (ABNORMAL) Basic metabolic panel (11/19/2024 8:20 PM CDT) Pathologist [facility] Sodium 138 135 - 145 mmol/L Potassium, pl 4.2 3.3 - 4.9 mmol/L [facility] Chloride 103 97 - 110 mmol/L [facility] CO2 28 22 - 32 mmol/L [facility] Anion gap 7 2 - 15 mmol/L [facility] BUN 15 6 - 25 mg/dL [facility] Creatinine 0.40(L) 0.60 - 1.10 mg/dL [facility] Glucose 93 70 - 199 mg/dL [facility] Comment: Interpretive Data Fasting glucose >/= 126 mg/dl is diagnostic for diabetes. Fasting is defined as no caloric intake for at least 8 hours. Fasting glucose between 100 mg/dl to 125 mg/dl is diagnostic of prediabetes. In a patient with classic symptoms of hyperglycemia or hyperglycemic crisis, a random glucose >/= 200 mg/dl is diagnostic for diabetes. In the absence of unequivocal hyperglycemia, results should be confirmed by repeat testing. The classification and Diagnosis of Diabetes Diabetes Care 2021; 46: S19-S40. Current interpretive data was last revised 2022. Calcium 8.4(L) 8.5 - 10.3 mg/dL [facility] Blood 11/19/2024 8:20 PM CDT 11/19/2024 9:32 PM CDT us Lee Elena MD LAB BLOOD ORDERABLES Krystyna l Result Performing Organization Address [facility]/ZIP Co de Phone Number [facility] [place] [address] * POCT glucose (11/19/2024 7:53 AM CDT) Glucose, POC 112 70 - 199 mg/dL Blood 11/19/2024 7:53 AM CDT 11/19/2024 7:53 AM CDT us Alex Bailey MD LAB POCT ORDERABLES - DEVICE Fi nal Result Performing Organization Address [facility]/ZIP Co de Phone Number [facility] [place] [address] * (ABNORMAL) Differential, auto (11/18/2024 9:53 PM CDT) Neutrophil abs 5.36 1.50 - 6.50 K/cumm Imm gran abs 0.06 0.00 - 0.10 K/cumm [facility] Lymphocyte abs 2.35 0.80 - 3.30 K/cumm [facility] Monocyte abs 0.81(H) 0.20 - 0.80 K/cumm [facility] Eosinophil abs 0.17 0.00 - 0.50 K/cumm [facility] Basophil abs 0.07 0.00 - 0.10 K/cumm [facility] Neutrophil pct 60.8 % [facility] Comment: Interpretive Data Percent cell count reference ranges are not reported, since discordance with absolute values may lead to misinterpretation of CBC data. Current Interpretive Data was last revised on 2017. Imm gran pct 0.7 % [facility] Comment: Interpretive Data Percent cell count reference ranges are not reported, since discordance with absolute values may lead to misinterpretation of CBC data. Current Interpretive Data was last revised on 2017. Lymphocyte pct 26.6 % [facility] Comment: Interpretive Data Percent cell count reference ranges are not reported, since discordance with absolute values may lead to misinterpretation of CBC data. Current Interpretive Data was last revised on 2017. Monocyte pct 9.2 % [facility] Comment: Interpretive Data Percent cell count reference ranges are not reported, since discordance with absolute values may lead to misinterpretation of CBC data. Current Interpretive Data was last revised on 2017. Eosinophil pct 1.9 % [facility] Comment: Interpretive Data Percent cell count reference ranges are not reported, since discordance with absolute values may lead to misinterpretation of CBC data. Current Interpretive Data was last revised on 2017. Basophil pct 0.8 % [facility] Comment: Interpretive Data Percent cell count reference ranges are not reported, since discordance with absolute values may lead to misinterpretation of CBC data. Current Interpretive Data was last revised on 2017. Blood 11/18/2024 9:53 PM CDT 11/18/2024 11:34 PM CDT us Lee Elena MD LAB BLOOD ORDERABLES Krystyna meyers Result [facility] Department [place] [address] * (ABNORMAL) CBC with auto differential (11/18/2024 9:53 PM CDT) WBC 8.82 3.80 - 9.90 K/cumm Hgb 9.2(L) 11.9 - 15.5 g/dL [facility] Hct 27.9(L) 35.6 - 45.5 % [facility] Plt 649(H) 150 - 400 K/cumm [facility] MPV 9.9 9.1 - 12.3 fL [facility] RBC 2.79(L) 3.90 - 5.20 M/cumm [facility] MCV 100.0(H) 81.3 - 96.4 fL [facility] MCH 33.0 27.1 - 33.3 pg [facility] MCHC 33.0 32.3 - 35.7 g/dL [facility] RDW CV 20.7(H) 11.1 - 14.9 % [facility] RDW SD 74.5(H) 35.7 - 48.1 fL [facility] NRBC abs 0.00 0.00 - 0.01 K/cumm [facility] Blood 11/18/2024 9:53 PM CDT 11/18/2024 11:34 PM CDT Lee Elena MD LAB BLOOD ORDERABLES Krystyna meyers Result [facility] One [facility] [place] [address] * Blood culture Blood (11/18/2024 9:53 PM CDT) Report Final Report: No growth Blood 11/18/2024 9:53 PM CDT 11/19/2024 1:12 AM CDT Narrative [facility] - 11/23/2024 7:00 AM CDT Collection->Peripheral 1. Blood cultures are incubated for 4 days on a continuously monitored blood culture system. The first report of a negative culture is issued within 24 hours of receipt of the specimen in the laboratory. 2. Positive culture results are reported as soon as they are detected. 3. The most important factor for detection of microbes in the setting of bloodstream infection is the volume of blood submitted for culture. Failure to collect an optimal blood volume can result in false negative blood cultures. 4. For pediatric patients, the recommended blood volume to collect follows a weight based strategy. See the electronic test catalog for collection instructions. 5. For positive blood cultures, a rapid molecular test may be performed for organism identification using the sherri ePlex blood culture identification panel for gram positive (BCID-GP) and gram negative (BCID-GN) organisms. This nucleic acid amplification test detects microbial DNA in positive blood culture broth. This assay has been cleared by the [place] Food and Drug Administration and its performance characteristics have been verified by the [facility]. For questions about this culture, contact the Microbiology Laboratory at [phone]. Interpretive data was last revised on 24. Lee Elena MD LAB MICROBIOLOGY - GENERA L ORDERABLES Final Result Performing Organization Address [facility] de Phone Number [facility] [place] [address] * Protime-INR (11/18/2024 9:53 PM CDT) Pathologist [facility] PT 10.8 9.7 - 13.0 sec INR 1.00 0.90 - 1.20 [facility] Comment: Interpretive data Oral anticoagulant therapeutic ranges: Venous thromboembolism prophylaxis or treatment: 2.0-3.0 CARDIOLOGY Standard range: 2.0-3.0 High-intensity range: 2.5-3.5 Refer to indication-specific guidelines for appropriate target ranges for prosthetic heart valve replacement. Current interpretive data was last revised on 2019. Blood 11/18/2024 9:53 PM CDT 11/18/2024 11:31 PM CDT Lee Elena MD LAB BLOOD ORDERABLES Krystyna l Result Performing Organization Address [facility] Co de Phone Number [facility] [place] [address] * eGFR (11/18/2024 3:57 PM CDT) eGFR >90 >=60 mL/min/1. 73 m2 Comment: Interpretive Data Reference Interval Normal >/= 90 mL/min/1.73m2 Mildly decreased* 60 - 89 mL/min/1.73m2 Mildly to moderately decreased 45 - 59 mL/min/1.73m2 Moderately to severely decreased 30 - 44 mL/min/1.73m2 Severely decreased 15 - 29 mL/min/1.73m2 Kidney Failure < 15 mL/min/1.73m2 *Relative to young adult level Estimated glomerular filtration rate is determined by the 2020 CKD-EPI equation recommended by the National Kidney Foundation (A Unifying Approach to GFR Estimation: Recommendations of the NKF-ASK Task Force on Reassessing the Inclusion of Race in Diagnosing Kidney Disease, JASN 2020). The CKD-EPI equation should not be used for patients with unstable renal function and has not been validated in children and those over 70. Current interpretive data was last reviewed 2021. Blood 11/18/2024 3:57 PM CDT 11/18/2024 4:11 PM CDT us Lee Elena MD LAB BLOOD ORDERABLES Krystyna l Result [facility] [place] [address] * (ABNORMAL) Phosphorus (11/18/2024 3:57 PM CDT) Pathologist [facility] Phosphorus, pl 4.8(H) 2.3 - 4.5 mg/dL Blood 11/18/2024 3:57 PM CDT 11/18/2024 4:11 PM CDT Lee Elena MD LAB BLOOD ORDERABLES Krystyna l Result [facility] [place] [address] * Magnesium (11/18/2024 3:57 PM CDT) Pathologist [facility] Magnesium 1.6 1.4 - 2.5 mg/dL Blood 11/18/2024 3:57 PM CDT 11/18/2024 4:11 PM CDT Lee Elena MD LAB BLOOD ORDERABLES Krystyna l Result Performing Organization Address [facility] de Phone Number [facility] [place] [address] * (ABNORMAL) Hepatic function panel (11/18/2024 3:57 PM CDT) [facility] Bilirubin, total 0.5 0.1 - 1.2 mg/dL Bilirubin, direct 0.4(H) 0.1 - 0.3 mg/dL [facility] Protein, pl 5.8(L) 6.5 - 8.5 g/dL [facility] Albumin 2.5(L) 3.5 - 5.0 g/dL [facility] Alk phos 207(H) 40 - 130 Units/L [facility] ALT 10 7 - 45 Units/L [facility] AST 43 10 - 45 Units/L [facility] Blood 11/18/2024 3:57 PM CDT 11/18/2024 4:11 PM CDT Lee Elena MD LAB BLOOD ORDERABLES Krystyna l Result Performing Organization Address [facility] de Phone Number [facility] [place] [address] * (ABNORMAL) Basic metabolic panel (11/18/2024 3:57 PM CDT) [facility] Sodium 140 135 - 145 mmol/L Potassium, pl 4.2 3.3 - 4.9 mmol/L [facility] Chloride 102 97 - 110 mmol/L [facility] CO2 29 22 - 32 mmol/L [facility] Anion gap 9 2 - 15 mmol/L [facility] BUN 13 6 - 25 mg/dL [facility] Creatinine 0.44(L) 0.60 - 1.10 mg/dL [facility] Glucose 92 70 - 199 mg/dL [facility] Comment: Interpretive Data Fasting glucose >/= 126 mg/dl is diagnostic for diabetes. Fasting is defined as no caloric intake for at least 8 hours. Fasting glucose between 100 mg/dl to 125 mg/dl is diagnostic of prediabetes. In a patient with classic symptoms of hyperglycemia or hyperglycemic crisis, a random glucose >/= 200 mg/dl is diagnostic for diabetes. In the absence of unequivocal hyperglycemia, results should be confirmed by repeat testing. The classification and Diagnosis of Diabetes Diabetes Care 2021; 46: S19-S40. Current interpretive data was last revised 2022. Calcium 8.4(L) 8.5 - 10.3 mg/dL [facility] Blood 11/18/2024 3:57 PM CDT 11/18/2024 4:11 PM CDT Lee Elena MD LAB BLOOD ORDERABLES Krystyna meyers Result [facility] [place] [address] * ECG 12 lead (11/18/2024 1:40 PM CDT) Ventricular Rate EKG/Min 86 BPM [facility] Atrial Rate [address] [facility] AR-Interval (MSEC) [address] [facility] QRS-Interval (MSEC) [address] [facility] QT-Interval (MSEC) [address] [facility] QTc [address] [facility] P [place] [address] [facility] R [place] [address] [facility] T [place] [address] [facility] Diagnosis Sinus rhythm with short AR T wave abnormality, consider lateral ischemia Prolonged QT Abnormal ECG When compared with ECG of 16-NOV-2024 07:09, Nonspecific T wave abnormality no longer evident in Anterior leads Inverted T waves have replaced nonspecific T wave abnormality in Lateral leads Confirmed by SHALINI RODRIGUEZ M.D ([id number]) on 11/20/2024 4:17:[address] [facility] 11/18/2024 1:40 PM CDT 11/20/2024 4:17 PM CDT Lee Elena MD ECG ORDERABLES Final Res ult [facility] * POCT glucose (11/18/2024 12:02 AM CDT) Glucose, POC 104 70 - 199 mg/dL Blood 11/18/2024 12:0 2 AM CDT 11/18/2024 12:02 AM CDT Lee Elena MD LAB POCT ORDERABLES - DEV ICE Final Result Performing Organization Address City/[facility] Co de Phone Number [facility] [place] [address] * eGFR (11/17/2024 10:42 PM CDT) eGFR >90 >=60 mL/min/1. 73 m2 Comment: Interpretive Data Reference Interval Normal >/= 90 mL/min/1.73m2 Mildly decreased* 60 - 89 mL/min/1.73m2 Mildly to moderately decreased 45 - 59 mL/min/1.73m2 Moderately to severely decreased 30 - 44 mL/min/1.73m2 Severely decreased 15 - 29 mL/min/1.73m2 Kidney Failure < 15 mL/min/1.73m2 *Relative to young adult level Estimated glomerular filtration rate is determined by the 2020 CKD-EPI equation recommended by the National Kidney Foundation (A Unifying Approach to GFR Estimation: Recommendations of the NKF-ASK Task Force on Reassessing the Inclusion of Race in Diagnosing Kidney Disease, JASN 202). The CKD-EPI equation should not be used for patients with unstable renal function and has not been validated in children and those over 70. Current interpretive data was last reviewed 2021. Blood 11/17/2024 10:4 2 PM CDT 11/17/2024 11:26 PM CDT Lee Elena MD LAB BLOOD ORDERABLES Krystyna meyers Result [facility] [place] [address] * Differential, auto (11/17/2024 10:42 PM CDT) Neutrophil abs 4.62 1.50 - 6.50 K/cumm Imm gran abs 0.08 0.00 - 0.10 K/cumm [facility] Lymphocyte abs 2.27 0.80 - 3.30 K/cumm [facility] Monocyte abs 0.73 0.20 - 0.80 K/cumm [facility] Eosinophil abs 0.13 0.00 - 0.50 K/cumm [facility] Basophil abs 0.08 0.00 - 0.10 K/cumm [facility] Neutrophil pct 58.5 % [facility] Comment: Interpretive Data Percent cell count reference ranges are not reported, since discordance with absolute values may lead to misinterpretation of CBC data. Current Interpretive Data was last revised on 2017. Imm gran pct 1.0 % [facility] Comment: Interpretive Data Percent cell count reference ranges are not reported, since discordance with absolute values may lead to misinterpretation of CBC data. Current Interpretive Data was last revised on 2017. Lymphocyte pct 28.7 % [facility] Comment: Interpretive Data Percent cell count reference ranges are not reported, since discordance with absolute values may lead to misinterpretation of CBC data. Current Interpretive Data was last revised on 2017. Monocyte pct 9.2 % [facility] Comment: Interpretive Data Percent cell count reference ranges are not reported, since discordance with absolute values may lead to misinterpretation of CBC data. Current Interpretive Data was last revised on 2017. Eosinophil pct 1.6 % [facility] Comment: Interpretive Data Percent cell count reference ranges are not reported, since discordance with absolute values may lead to misinterpretation of CBC data. Current Interpretive Data was last revised on 2017. Basophil pct 1.0 % [facility] Comment: Interpretive Data Percent cell count reference ranges are not reported, since discordance with absolute values may lead to misinterpretation of CBC data. Current Interpretive Data was last revised on 2017. Blood 11/17/2024 10:4 2 PM CDT 11/17/2024 11:26 PM CDT Lee Elena MD LAB BLOOD ORDERABLES Krystyna l Result Performing Organization Address [facility]/ZIP Co de Phone Number [facility] [place] [address] * (ABNORMAL) CBC with auto differential (11/17/2024 10:42 PM CDT) WBC 7.91 3.80 - 9.90 K/cumm Hgb 9.2(L) 11.9 - 15.5 g/dL [facility] Hct 27.9(L) 35.6 - 45.5 % [facility] Plt 666(H) 150 - 400 K/cumm [facility] MPV 10.0 9.1 - 12.3 fL [facility] RBC 2.81(L) 3.90 - 5.20 M/cumm [facility] MCV 99.3(H) 81.3 - 96.4 fL [facility] MCH 32.7 27.1 - 33.3 pg [facility] MCHC 33.0 32.3 - 35.7 g/dL [facility] RDW CV 21.2(H) 11.1 - 14.9 % [facility] RDW SD 75.9(H) 35.7 - 48.1 fL [facility] NRBC abs 0.00 0.00 - 0.01 K/cumm [facility] Blood 11/17/2024 10:4 2 PM CDT 11/17/2024 11:26 PM CDT Lee Elena MD LAB BLOOD ORDERABLES Krystyna l Result Performing Organization Address [facility]/ZIP Co de Phone Number [facility] [place] [address] * Blood culture Blood (11/17/2024 10:42 PM CDT) Report Final Report: No growth Blood 11/17/2024 10:4 2 PM CDT 11/17/2024 11:21 PM CDT Tabitha NAGEL [facility] - 11/22/2024 7:00 AM CDT Collection->Peripheral 1. Blood cultures are incubated for 4 days on a continuously monitored blood culture system. The first report of a negative culture is issued within 24 hours of receipt of the specimen in the laboratory. 2. Positive culture results are reported as soon as they are detected. 3. The most important factor for detection of microbes in the setting of bloodstream infection is the volume of blood submitted for culture. Failure to collect an optimal blood volume can result in false negative blood cultures. 4. For pediatric patients, the recommended blood volume to collect follows a weight based strategy. See the electronic test catalog for collection instructions. 5. For positive blood cultures, a rapid molecular test may be performed for organism identification using the sherri ePlex blood culture identification panel for gram positive (BCID-GP) and gram negative (BCID-GN) organisms. This nucleic acid amplification test detects microbial DNA in positive blood culture broth. This assay has been cleared by the [place] Food and Drug Administration and its performance characteristics have been verified by the [facility]. For questions about this culture, contact the Microbiology Laboratory at [phone]. Interpretive data was last revised on 24. Lee Elena MD LAB MICROBIOLOGY - GENERA L ORDERABLES Final Result [facility] One [facility] Department [place] [address] * Protime-INR (11/17/2024 10:42 PM CDT) PT 12.0 9.7 - 13.0 sec INR 1.11 0.90 - 1.20 [facility] Comment: Interpretive data Oral anticoagulant therapeutic ranges: Venous thromboembolism prophylaxis or treatment: 2.0-3.0 CARDIOLOGY Standard range: 2.0-3.0 High-intensity range: 2.5-3.5 Refer to indication-specific guidelines for appropriate target ranges for prosthetic heart valve replacement. Current interpretive data was last revised on 2019. Blood 11/17/2024 10:4 2 PM CDT 11/17/2024 11:22 PM CDT Lee Elena MD LAB BLOOD ORDERABLES Krystyna l Result Performing Organization Address City/[facility] Co de Phone Number [facility] [place] [address] * Phosphorus (11/17/2024 10:42 PM CDT) Phosphorus, pl 3.7 2.3 - 4.5 mg/dL Blood 11/17/2024 10:4 2 PM CDT 11/17/2024 11:26 PM CDT Lee Elena MD LAB BLOOD ORDERABLES Krystyna l Result Performing Organization Address [facility] Co de Phone Number [facility] [place] [address] * Magnesium (11/17/2024 10:42 PM CDT) Magnesium 1.8 1.4 - 2.5 mg/dL Blood 11/17/2024 10:4 2 PM CDT 11/17/2024 11:26 PM CDT Lee Elena MD LAB BLOOD ORDERABLES Krystyna l Result Performing Organization Address City/[facility] Co de Phone Number [facility] [place] [address] * (ABNORMAL) Hepatic function panel (11/17/2024 10:42 PM CDT) Bilirubin, total 0.5 0.1 - 1.2 mg/dL Bilirubin, direct 0.4(H) 0.1 - 0.3 mg/dL [facility] Protein, pl 5.4(L) 6.5 - 8.5 g/dL [facility] Albumin 2.2(L) 3.5 - 5.0 g/dL [facility] Alk phos 186(H) 40 - 130 Units/L [facility] ALT 11 7 - 45 Units/L [facility] AST 44 10 - 45 Units/L [facility] Blood 11/17/2024 10:4 2 PM CDT 11/17/2024 11:26 PM CDT us Lee Elena MD LAB BLOOD ORDERABLES Krystyna meyers Result [facility] One [facility] [place] [address] * (ABNORMAL) Basic metabolic panel (11/17/2024 10:42 PM CDT) Sodium 139 135 - 145 mmol/L Potassium, pl 4.2 3.3 - 4.9 mmol/L [facility] Chloride 106 97 - 110 mmol/L [facility] CO2 28 22 - 32 mmol/L [facility] Anion gap 5 2 - 15 mmol/L [facility] BUN 10 6 - 25 mg/dL [facility] Creatinine 0.43(L) 0.60 - 1.10 mg/dL [facility] Glucose 99 70 - 199 mg/dL [facility] Comment: Interpretive Data Fasting glucose >/= 126 mg/dl is diagnostic for diabetes. Fasting is defined as no caloric intake for at least 8 hours. Fasting glucose between 100 mg/dl to 125 mg/dl is diagnostic of prediabetes. In a patient with classic symptoms of hyperglycemia or hyperglycemic crisis, a random glucose >/= 200 mg/dl is diagnostic for diabetes. In the absence of unequivocal hyperglycemia, results should be confirmed by repeat testing. The classification and Diagnosis of Diabetes Diabetes Care 202; 46: S19-S40. Current interpretive data was last revised 2022. Calcium 8.4(L) 8.5 - 10.3 mg/dL [facility] Blood 11/17/2024 10:4 2 PM CDT 11/17/2024 11:26 PM CDT Lee Elena MD LAB BLOOD ORDERABLES Krystyna l Result Performing Organization Address [facility] Co de Phone Number [facility] [place] [address] * POCT glucose (11/17/2024 7:38 PM CDT) Glucose, POC 101 70 - 199 mg/dL Blood 11/17/2024 7:38 PM CDT 11/17/2024 7:38 PM CDT Lee Elena MD LAB POCT ORDERABLES - DEV ICE Final Result Performing Organization Address [facility] Co de Phone Number [facility] [place] [address] * POCT glucose (11/17/2024 3:39 PM CDT) Glucose, POC 95 70 - 199 mg/dL Blood 11/17/2024 3:39 PM CDT 11/17/2024 3:39 PM CDT Lee Elena MD LAB POCT ORDERABLES - DEV ICE Final Result Performing Organization Address City/[facility] Co de Phone Number [facility] [place] [address] * POCT glucose (11/17/2024 11:25 AM CDT) Glucose, POC 99 70 - 199 mg/dL Blood 11/17/2024 11:2 5 AM CDT 11/17/2024 11:25 AM CDT Lee Elena MD LAB POCT ORDERABLES - DEV ICE Final Result Performing Organization Address [facility] [place] [address] * POCT glucose (11/17/2024 7:43 AM CDT) Glucose, POC 108 70 - 199 mg/dL Blood 11/17/2024 7:43 AM CDT 11/17/2024 7:43 AM CDT Lee Elena MD LAB POCT ORDERABLES - DEV ICE Final Result Performing Organization Address [facility] [place] [address] * POCT glucose (11/17/2024 5:04 AM CDT) Glucose, POC 110 70 - 199 mg/dL Blood 11/17/2024 5:04 AM CDT 11/17/2024 5:04 AM CDT Lee Elena MD LAB POCT ORDERABLES - DEV ICE Final Result Performing Organization Address [facility] Co de Phone Number [facility] [place] [address] * POCT glucose (11/17/2024 12:06 AM CDT) Glucose, POC 102 70 - 199 mg/dL Blood 11/17/2024 12:0 6 AM CDT 11/17/2024 12:06 AM CDT Lee Elena MD LAB POCT ORDERABLES - DEV ICE Final Result Performing Organization Address [facility] Co de Phone Number [facility] [place] [address] * eGFR (11/16/2024 9:38 PM CDT) [facility] eGFR >90 >=60 mL/min/1. 73 m2 Comment: Interpretive Data Reference Interval Normal >/= 90 mL/min/1.73m2 Mildly decreased* 60 - 89 mL/min/1.73m2 Mildly to moderately decreased 45 - 59 mL/min/1.73m2 Moderately to severely decreased 30 - 44 mL/min/1.73m2 Severely decreased 15 - 29 mL/min/1.73m2 Kidney Failure < 15 mL/min/1.73m2 *Relative to young adult level Estimated glomerular filtration rate is determined by the 2020 CKD-EPI equation recommended by the National Kidney [employer] (A Unifying Approach to GFR Estimation: Recommendations of the NKF-ASK Task Force on Reassessing the Inclusion of Race in Diagnosing Kidney Disease, JASN 2020). The CKD-EPI equation should not be used for patients with unstable renal function and has not been validated in children and those over 70. Current interpretive data was last reviewed 2021. Blood 11/16/2024 9:38 PM CDT 11/16/2024 10:37 PM CDT us Lee Elena MD LAB BLOOD ORDERABLES Krystyna meyers Result [facility] One [facility] [place] [address] * (ABNORMAL) Differential, auto (11/16/2024 9:38 PM CDT) [facility] Neutrophil abs 9.72(H) 1.50 - 6.50 K/cumm Imm gran abs 0.14(H) 0.00 - 0.10 K/cumm [facility] Lymphocyte abs 1.26 0.80 - 3.30 K/cumm [facility] Monocyte abs 0.53 0.20 - 0.80 K/cumm [facility] Eosinophil abs 0.06 0.00 - 0.50 K/cumm [facility] Basophil abs 0.08 0.00 - 0.10 K/cumm [facility] Neutrophil pct 82.4 % [facility] Comment: Interpretive Data Percent cell count reference ranges are not reported, since discordance with absolute values may lead to misinterpretation of CBC data. Current Interpretive Data was last revised on 2017. Imm gran pct 1.2 % [facility] Comment: Interpretive Data Percent cell count reference ranges are not reported, since discordance with absolute values may lead to misinterpretation of CBC data. Current Interpretive Data was last revised on 2017. Lymphocyte pct 10.7 % [facility] Comment: Interpretive Data Percent cell count reference ranges are not reported, since discordance with absolute values may lead to misinterpretation of CBC data. Current Interpretive Data was last revised on 2017. Monocyte pct 4.5 % [facility] Comment: Interpretive Data Percent cell count reference ranges are not reported, since discordance with absolute values may lead to misinterpretation of CBC data. Current Interpretive Data was last revised on 2017. Eosinophil pct 0.5 % [facility] Comment: Interpretive Data Percent cell count reference ranges are not reported, since discordance with absolute values may lead to misinterpretation of CBC data. Current Interpretive Data was last revised on 2017. Basophil pct 0.7 % [facility] Comment: Interpretive Data Percent cell count reference ranges are not reported, since discordance with absolute values may lead to misinterpretation of CBC data. Current Interpretive Data was last revised on 2017. Blood 11/16/2024 9:38 PM CDT 11/16/2024 10:38 PM CDT Lee Elena MD LAB BLOOD ORDERABLES Krystyna mira Result [facility] One [facility] [place] [address] * (ABNORMAL) CBC with auto differential (11/16/2024 9:38 PM CDT) WBC 11.79(H) 3.80 - 9.90 K/cumm Hgb 10.1(L) 11.9 - 15.5 g/dL [facility] Hct 30.2(L) 35.6 - 45.5 % [facility] Plt 718(H) 150 - 400 K/cumm [facility] MPV 10.5 9.1 - 12.3 fL [facility] RBC 3.12(L) 3.90 - 5.20 M/cumm [facility] MCV 96.8(H) 81.3 - 96.4 fL [facility] MCH 32.4 27.1 - 33.3 pg [facility] MCHC 33.4 32.3 - 35.7 g/dL [facility] RDW CV 21.5(H) 11.1 - 14.9 % [facility] RDW SD 73.1(H) 35.7 - 48.1 fL [facility] NRBC abs 0.00 0.00 - 0.01 K/cumm [facility] Blood 11/16/2024 9:38 PM CDT 11/16/2024 10:38 PM CDT Lee Elena MD LAB BLOOD ORDERABLES Krystyna meyers Result [facility] One [facility] [place] [address] * Blood culture Blood (11/16/2024 9:38 PM CDT) Report Final Report: No growth Blood 11/16/2024 9:38 PM CDT 11/16/2024 10:38 PM CDT Narrative [facility] - 11/21/2024 7:00 AM CDT From a different site than #1. Collection->Peripheral 1. Blood cultures are incubated for 4 days on a continuously monitored blood culture system. The first report of a negative culture is issued within 24 hours of receipt of the specimen in the laboratory. 2. Positive culture results are reported as soon as they are detected. 3. The most important factor for detection of microbes in the setting of bloodstream infection is the volume of blood submitted for culture. Failure to collect an optimal blood volume can result in false negative blood cultures. 4. For pediatric patients, the recommended blood volume to collect follows a weight based strategy. See the electronic test catalog for collection instructions. 5. For positive blood cultures, a rapid molecular test may be performed for organism identification using the sherri ePlex blood culture identification panel for gram positive (BCID-GP) and gram negative (BCID-GN) organisms. This nucleic acid amplification test detects microbial DNA in positive blood culture broth. This assay has been cleared by the [place] Food and Drug Administration and its performance characteristics have been verified by the [facility]. For questions about this culture, contact the Microbiology Laboratory at [phone]. Interpretive data was last revised on 24. Lee Elena MD LAB MICROBIOLOGY - GENERA L ORDERABLES Final Result Performing Organization Address [facility] Co de Phone Number [facility] [place] [address] * Protime-INR (11/16/2024 9:38 PM CDT) PT 12.6 9.7 - 13.0 sec INR 1.16 0.90 - 1.20 [facility] Comment: Interpretive data Oral anticoagulant therapeutic ranges: Venous thromboembolism prophylaxis or treatment: 2.0-3.0 CARDIOLOGY Standard range: 2.0-3.0 High-intensity range: 2.5-3.5 Refer to indication-specific guidelines for appropriate target ranges for prosthetic heart valve replacement. Current interpretive data was last revised on 2019. Blood 11/16/2024 9:38 PM CDT 11/16/2024 10:38 PM CDT Lee Elena MD LAB BLOOD ORDERABLES Krystyna l Result Performing Organization Address [facility] Co de Phone Number [facility] [place] [address] * Phosphorus (11/16/2024 9:38 PM CDT) Phosphorus, pl 4.1 2.3 - 4.5 mg/dL Blood 11/16/2024 9:38 PM CDT 11/16/2024 10:37 PM CDT Lee Elena MD LAB BLOOD ORDERABLES Krystyna l Result Performing Organization Address City/[facility]/ZIP Co de Phone Number [facility] [place] [address] * Magnesium (11/16/2024 9:38 PM CDT) Pathologist [facility] Magnesium 1.5 1.4 - 2.5 mg/dL Blood 11/16/2024 9:38 PM CDT 11/16/2024 10:37 PM CDT Lee Elena MD LAB BLOOD ORDERABLES Krystyna l Result Performing Organization Address [facility] Co de Phone Number [facility] [place] [address] * (ABNORMAL) Hepatic function panel (11/16/2024 9:38 PM CDT) Bilirubin, total 0.6 0.1 - 1.2 mg/dL Bilirubin, direct 0.4(H) 0.1 - 0.3 mg/dL [facility] Protein, pl 5.7(L) 6.5 - 8.5 g/dL [facility] Albumin 2.0(L) 3.5 - 5.0 g/dL [facility] Alk phos 201(H) 40 - 130 Units/L [facility] ALT 21 7 - 45 Units/L [facility] AST 68(H) 10 - 45 Units/L [facility] Blood 11/16/2024 9:38 PM CDT 11/16/2024 10:37 PM CDT Lee Elena MD LAB BLOOD ORDERABLES Krystyna l Result Performing Organization Address City/[facility] Co de Phone Number [facility] [place] [address] * (ABNORMAL) Basic metabolic panel (11/16/2024 9:38 PM CDT) Sodium 141 135 - 145 mmol/L Potassium, pl 4.2 3.3 - 4.9 mmol/L [facility] Chloride 103 97 - 110 mmol/L [facility] CO2 29 22 - 32 mmol/L [facility] Anion gap 9 2 - 15 mmol/L [facility] BUN 9 6 - 25 mg/dL [facility] Creatinine 0.48(L) 0.60 - 1.10 mg/dL [facility] Glucose 90 70 - 199 mg/dL [facility] Comment: Interpretive Data Fasting glucose >/= 126 mg/dl is diagnostic for diabetes. Fasting is defined as no caloric intake for at least 8 hours. Fasting glucose between 100 mg/dl to 125 mg/dl is diagnostic of prediabetes. In a patient with classic symptoms of hyperglycemia or hyperglycemic crisis, a random glucose >/= 200 mg/dl is diagnostic for diabetes. In the absence of unequivocal hyperglycemia, results should be confirmed by repeat testing. The classification and Diagnosis of Diabetes Diabetes Care 2021; 46: S19-S40. Current interpretive data was last revised 2022. Calcium 8.8 8.5 - 10.3 mg/dL [facility] Blood 11/16/2024 9:38 PM CDT 11/16/2024 10:37 PM CDT Lee Elena MD LAB BLOOD ORDERABLES Krystyna l Result [facility] One [facility] [place] [address] * Blood culture Blood (11/16/2024 9:28 PM CDT) Report Final Report: No growth Blood 11/16/2024 9:28 PM CDT 11/16/2024 10:38 PM CDT [facility]ative [facility] - 11/21/2024 7:00 AM CDT Collection->Peripheral 1. Blood cultures are incubated for 4 days on a continuously monitored blood culture system. The first report of a negative culture is issued within 24 hours of receipt of the specimen in the laboratory. 2. Positive culture results are reported as soon as they are detected. 3. The most important factor for detection of microbes in the setting of bloodstream infection is the volume of blood submitted for culture. Failure to collect an optimal blood volume can result in false negative blood cultures. 4. For pediatric patients, the recommended blood volume to collect follows a weight based strategy. See the electronic test catalog for collection instructions. 5. For positive blood cultures, a rapid molecular test may be performed for organism identification using the sherri ePlex blood culture identification panel for gram positive (BCID-GP) and gram negative (BCID-GN) organisms. This nucleic acid amplification test detects microbial DNA in positive blood culture broth. This assay has been cleared by the [place] Food and Drug Administration and its performance characteristics have been verified by the [facility]. For questions about this culture, contact the Microbiology Laboratory at [phone]. Interpretive data was last revised on 24. Lee Elena MD LAB MICROBIOLOGY - GENERA L ORDERABLES Final Result [facility] [place] [address] * POCT glucose (11/16/2024 8:10 PM CDT) Glucose, POC 124 70 - 199 mg/dL Blood 11/16/2024 8:10 PM CDT 11/16/2024 8:10 PM CDT Lee Elena MD LAB POCT ORDERABLES - DEV ICE Final Result [facility] [place] [address] * POCT glucose (11/16/2024 6:32 PM CDT) Glucose, POC 104 70 - 199 mg/dL Blood 11/16/2024 6:32 PM CDT 11/16/2024 6:32 PM CDT us Lee Elena MD LAB POCT ORDERABLES - DEV ICE Final Result [facility] [place] [address] * Radiology Event (11/16/2024 5:53 PM CDT) Anatomical Region Laterality Modality Magnetic Resonan ce 11/16/2024 11:2 4 PM CDT Impressions 11/16/2024 11:24 PM CDT Seated level fall during wheelchair transfer landing on the dorsum of the left foot with subsequent pain and forefoot tenderness to the lesser digits without wound, deformity, swelling, ecchymosis, or concerning findings are not targeted physical exam. Recommend attention on follow-up physical exam during daily rounds by the primary team, with course of patient reported symptoms and physical exam findings to dictate whether any further workup is required. Instructions given to patient regarding event: yes Electronically signed by: Ochoa Liriano D.O. Narrative 11/16/2024 11:24 PM CDT EXAMINATION: General Radiology Event Report DATE of EVENT:11/16/2024 11:11 PM I was asked to see HAYLEY LEÓN regarding a fall. Event: This was a witnessed Fall It was reported to me that the patient fell during a transfer from one wheelchair to another wheelchair while in the radiology department on the 5th floor of the [facility]. It was reported that when the patient was assisted into a new wheelchair, after sitting on the anterior edge of the seat, the wheelchair tipped forward, after which the patient fell landing with her dorsal left forefoot on the ground before landing with her buttocks on the ground. The follow was witnessed and the patient was assisted back into the wheelchair. The events were explained to me with the patient present and the patient corroborated the reported events. The patient complained of pain in the left forefoot. On exam there was poorly localized tenderness within the forefoot, most prominent near the base of the lesser digits dorsally. There was no wound, swelling or ecchymosis. There was no visible deformity and no deformity on palpation of the bones of the forefoot. The patient reports increased pain sensitivity in the lower extremities due to neuropathy. The patient denies any other sites of acute pain related to the fall. She denies hitting her head. Actions: After physical exam did not reveal any findings concerning for acute injury requiring immediate intervention, the patient was instructed to monitor her symptoms and report any changes or failure of symptoms to resolve to the primary care team. The patient is inpatient and she reports no plans for discharge in the near future. Any further workup is deferred to the primary team based on future physical exam findings, symptoms, and other clinical diagnostic data. The highest level of care provided was a targeted physical exam and patient education. Procedure Note Abel Lirianoton Sarah, DO - 11/16/2024 EXAMINATION: General Radiology Event Report DATE of EVENT:11/16/2024 11:11 PM I was asked to see HAYLEY LEÓN regarding a fall. Event: This was a witnessed Fall It was reported to me that the patient fell during a transfer from one wheelchair to another wheelchair while in the radiology department on the 5th floor of the [facility]. It was reported that when the patient was assisted into a new wheelchair, after sitting on the anterior edge of the seat, the wheelchair tipped forward, after which the patient fell landing with her dorsal left forefoot on the ground before landing with her buttocks on the ground. The follow was witnessed and the patient was assisted back into the wheelchair. The events were explained to me with the patient present and the patient corroborated the reported events. The patient complained of pain in the left forefoot. On exam there was poorly localized tenderness within the forefoot, most prominent near the base of the lesser digits dorsally. There was no wound, swelling or ecchymosis. There was no visible deformity and no deformity on palpation of the bones of the forefoot. The patient reports increased pain sensitivity in the lower extremities due to neuropathy. The patient denies any other sites of acute pain related to the fall. She denies hitting her head. Actions: After physical exam did not reveal any findings concerning for acute injury requiring immediate intervention, the patient was instructed to monitor her symptoms and report any changes or failure of symptoms to resolve to the primary care team. The patient is inpatient and she reports no plans for discharge in the near future. Any further workup is deferred to the primary team based on future physical exam findings, symptoms, and other clinical diagnostic data. The highest level of care provided was a targeted physical exam and patient education. IMPRESSION: Seated level fall during wheelchair transfer landing on the dorsum of the left foot with subsequent pain and forefoot tenderness to the lesser digits without wound, deformity, swelling, ecchymosis, or concerning findings are not targeted physical exam. Recommend attention on follow-up physical exam during daily rounds by the primary team, with course of patient reported symptoms and physical exam findings to dictate whether any further workup is required. Instructions given to patient regarding event: yes Electronically signed by: Ochoa Liriano D.O. us Lee Elena MD IMG CT PROCEDURES Final R esult * MRI Cardiac M&F W WO Contrast (11/16/2024 5:53 PM CDT) Anatomical Region Laterality Modality Body N/A Magnetic Resonan ce 11/19/2024 10:4 6 AM CDT Impressions 11/19/2024 8:58 PM CDT 1. MR correlates for the left ventricular lateral wall and LV apical intracardiac masses are not well evaluated due to technical limitations. As these are only seen on the cine sequences, further characterization to differentiate between thrombosis or vegetation is not possible and repeat study could be obtained if indicated. 2. Borderline reduced left ventricular systolic function (LVEF = 54%). 3. Elevated STIR signal in the mid cavity anterior and septal hassan, with some elevated T2 signal on the mid cavity T2 map. This may represent residual myocardial edema from recent cardiac arrest. No associated late gadolinium enhancement or focal wall motion abnormality. Dictated by: Freedom Matthew M.D. The radiology attending physician has personally reviewed this study, and had reviewed and/or edited this written report and agrees with it. Electronically signed by: Thang Castro M.D. Narrative 11/19/2024 8:58 PM CDT EXAMINATION: MRI CARDIAC M/T/FUNC W WO CONTRAST HISTORY: Cardiac mass/tumor, further eval Cardiac mri. Morphology and function. Evaluating intracardiac mass V. Tach arrest TECHNIQUE: Multiplanar magnetic resonance imaging (MRI) of the heart with ultrafast spin echo and balanced steady state free precession sequences was performed with and without contrast following the uneventful administration of 8 mL of MultiHANCE, according to a custom protocol. This examination included dedicated phase contrast sequences and post processing for flow velocities. 3-D postprocessing was subsequently performed on a dedicated 3-D workstation. COMPARISON: None FINDINGS: Conventional cardiac anatomy. Atria are normal in size. The right ventricle is normal in size, with normal systolic function. The left ventricle is not dilated, with no left ventricular hypertrophy. The left ventricular systolic function is borderline reduced. with no regional wall motion abnormality. There is elevated STIR signal throughout the basal anterior wall and the mid cavity and apical septal and inferior hassan. Qualitatively, there is no mitral valve regurgitation and no tricuspid valve regurgitation. There is no pulmonic regurgitation. The aortic valve morphology is normal. There is no aortic stenosis and no aortic regurgitation. Phase sensitive inversion recovery images were obtained after the administration of contrast demonstrating no abnormal delayed myocardial enhancement . There is a 1.2 x 0.8 cm low signal ovoid structure along the basilar lateral wall (series 14 image 17). Ill defined low signal at the apex is difficult to measure but is also seen only on the Trufi cine images (series 14). No associated gadolinium enhancement is seen, however the structures are not well evaluated on the post contrast studies. T1 mapping at the mid: normal less than 7886-3475 ms. T2 mapping at the mid: normal less than 55 ms except for the anteroseptal wall which is elevated to 65 ms. Small bilateral pleural effusions. Associated compressive atelectasis in the dependent lungs. Left ventricle: Ejection Fraction: 54% End diastolic volume: 96 mL (69 mL/m2, indexed) End systolic volume: 44 mL (32 mL/m2, indexed) Stroke volume: 52 mL (37 mL/m2, indexed) Cardiac output: 4.3 L/min Cardiac index: 3.1 L/min/m2 Right ventricle: Ejection Fraction: 61% End diastolic volume: 94 mL (67 mL/m2, indexed) End systolic volume: 37 mL Stroke volume: 57 mL (41 mL/m2, indexed) Cardiac output: 4.7 L/min Cardiac index: 3.4 L/min/m2 Flow Quantification: Aorta above the valve Peak velocity: 1.1 m/sec Peak pressure gradient: 4.5 mmHg Fwd flow: 47 mL Rev flow: 0 mL Net flow: 47 mL Regurgitant fraction: 0% Pulmonary artery above valve , likely inaccurate given suboptimal plane selection Peak velocity: 0.6 m/sec Peak pressure gradient: 1.3 mmHg Fwd flow: 30 mL Rev flow: 0 mL Net flow: 0 mL Regurgitant fraction: 0% Procedure Note Thang Castro MD PhD - 11/19/2024 EXAMINATION: MRI CARDIAC M/T/FUNC W WO CONTRAST HISTORY: Cardiac mass/tumor, further eval Cardiac mri. Morphology and function. Evaluating intracardiac mass V. Tach arrest TECHNIQUE: Multiplanar magnetic resonance imaging (MRI) of the heart with ultrafast spin echo and balanced steady state free precession sequences was performed with and without contrast following the uneventful administration of 8 mL of MultiHANCE, according to a custom protocol. This examination included dedicated phase contrast sequences and post processing for flow velocities. 3-D postprocessing was subsequently performed on a dedicated 3-D workstation. COMPARISON: None FINDINGS: Conventional cardiac anatomy. Atria are normal in size. The right ventricle is normal in size, with normal systolic function. The left ventricle is not dilated, with no left ventricular hypertrophy. The left ventricular systolic function is borderline reduced. with no regional wall motion abnormality. There is elevated STIR signal throughout the basal anterior wall and the mid cavity and apical septal and inferior hassan. Qualitatively, there is no mitral valve regurgitation and no tricuspid valve regurgitation. There is no pulmonic regurgitation. The aortic valve morphology is normal. There is no aortic stenosis and no aortic regurgitation. Phase sensitive inversion recovery images were obtained after the administration of contrast demonstrating no abnormal delayed myocardial enhancement . There is a 1.2 x 0.8 cm low signal ovoid structure along the basilar lateral wall (series 14 image 17). Ill defined low signal at the apex is difficult to measure but is also seen only on the Trufi cine images (series 14). No associated gadolinium enhancement is seen, however the structures are not well evaluated on the post contrast studies. T1 mapping at the mid: normal less than 0813-8876 ms. T2 mapping at the mid: normal less than 55 ms except for the anteroseptal wall which is elevated to 65 ms. Small bilateral pleural effusions. Associated compressive atelectasis in the dependent lungs. Left ventricle: Ejection Fraction: 54% End diastolic volume: 96 mL (69 mL/m2, indexed) End systolic volume: 44 mL (32 mL/m2, indexed) Stroke volume: 52 mL (37 mL/m2, indexed) Cardiac output: 4.3 L/min Cardiac index: 3.1 L/min/m2 Right ventricle: Ejection Fraction: 61% End diastolic volume: 94 mL (67 mL/m2, indexed) End systolic volume: 37 mL Stroke volume: 57 mL (41 mL/m2, indexed) Cardiac output: 4.7 L/min Cardiac index: 3.4 L/min/m2 Flow Quantification: Aorta above the valve Peak velocity: 1.1 m/sec Peak pressure gradient: 4.5 mmHg Fwd flow: 47 mL Rev flow: 0 mL Net flow: 47 mL Regurgitant fraction: 0% Pulmonary artery above valve , likely inaccurate given suboptimal plane selection Peak velocity: 0.6 m/sec Peak pressure gradient: 1.3 mmHg Fwd flow: 30 mL Rev flow: 0 mL Net flow: 0 mL Regurgitant fraction: 0% IMPRESSION: 1. MR correlates for the left ventricular lateral wall and LV apical intracardiac masses are not well evaluated due to technical limitations. As these are only seen on the cine sequences, further characterization to differentiate between thrombosis or vegetation is not possible and repeat study could be obtained if indicated. 2. Borderline reduced left ventricular systolic function (LVEF = 54%). 3. Elevated STIR signal in the mid cavity anterior and septal hassan, with some elevated T2 signal on the mid cavity T2 map. This may represent residual myocardial edema from recent cardiac arrest. No associated late gadolinium enhancement or focal wall motion abnormality. Dictated by: Freedom Matthew M.D. The radiology attending physician has personally reviewed this study, and had reviewed and/or edited this written report and agrees with it. Electronically signed by: Thang Castro M.D. Lee Elena MD [facility] MRI PROCEDURES Final Result * (ABNORMAL) Hemoglobin and hematocrit (11/16/2024 11:59 AM CDT) Hgb 10.2(L) 11.9 - 15.5 g/dL Comment:Hemoglobin delta due to apparent blood transfusion. Hct 30.3(L) 35.6 - 45.5 % [facility] Blood 11/16/2024 11:5 9 AM CDT 11/16/2024 12:47 PM CDT Oracio Cody MD LAB BLOOD ORDERABLES Final Result Performing Organization Address City/[facility] Co de Phone Number [facility] [place] [address] * eGFR (11/16/2024 11:58 AM CDT) eGFR >90 >=60 mL/min/1. 73 m2 Comment: Interpretive Data Reference Interval Normal >/= 90 mL/min/1.73m2 Mildly decreased* 60 - 89 mL/min/1.73m2 Mildly to moderately decreased 45 - 59 mL/min/1.73m2 Moderately to severely decreased 30 - 44 mL/min/1.73m2 Severely decreased 15 - 29 mL/min/1.73m2 Kidney Failure < 15 mL/min/1.73m2 *Relative to young adult level Estimated glomerular filtration rate is determined by the 2020 CKD-EPI equation recommended by the National Kidney Foundation (A Unifying Approach to GFR Estimation: Recommendations of the NKF-ASK Task Force on Reassessing the Inclusion of Race in Diagnosing Kidney Disease, JASN 2020). The CKD-EPI equation should not be used for patients with unstable renal function and has not been validated in children and those over 70. Current interpretive data was last reviewed 2021. Blood 11/16/2024 11:5 8 AM CDT 11/16/2024 12:47 PM CDT us Lee Elena MD LAB BLOOD ORDERABLES Krystyna l Result Performing Organization Address City/[facility]/ZIP Co de Phone Number [facility] Department [place] [address] * Calcium, ionized (11/16/2024 11:58 AM CDT) Calcium, Ionized 4.68 4.50 - 5.10 mg/dL Blood 11/16/2024 11:5 8 AM CDT 11/16/2024 12:39 PM CDT Lee Elena MD LAB BLOOD ORDERABLES Krystyna l Result Performing Organization Address [facility] Co de Phone Number [facility] [place] [address] * Phosphorus (11/16/2024 11:58 AM CDT) [facility] Phosphorus, pl 4.3 2.3 - 4.5 mg/dL Blood 11/16/2024 11:5 8 AM CDT 11/16/2024 12:47 PM CDT Lee Elena MD LAB BLOOD ORDERABLES Krystyna l Result Performing Organization Address [facility] Co de Phone Number [facility] Department [place] [address] * Magnesium (11/16/2024 11:58 AM CDT) [facility] Magnesium 1.6 1.4 - 2.5 mg/dL Blood 11/16/2024 11:5 8 AM CDT 11/16/2024 12:47 PM CDT Lee Elena MD LAB BLOOD ORDERABLES Krystyna l Result Performing Organization Address [facility] de Phone Number [facility] [place] [address] * (ABNORMAL) Basic metabolic panel (11/16/2024 11:58 AM CDT) [facility] Sodium 140 135 - 145 mmol/L Potassium, pl 4.2 3.3 - 4.9 mmol/L [facility] Chloride 104 97 - 110 mmol/L [facility] CO2 30 22 - 32 mmol/L [facility] Anion gap 6 2 - 15 mmol/L [facility] BUN 9 6 - 25 mg/dL [facility] Creatinine 0.44(L) 0.60 - 1.10 mg/dL [facility] Glucose 101 70 - 199 mg/dL [facility] Comment: Interpretive Data Fasting glucose >/= 126 mg/dl is diagnostic for diabetes. Fasting is defined as no caloric intake for at least 8 hours. Fasting glucose between 100 mg/dl to 125 mg/dl is diagnostic of prediabetes. In a patient with classic symptoms of hyperglycemia or hyperglycemic crisis, a random glucose >/= 200 mg/dl is diagnostic for diabetes. In the absence of unequivocal hyperglycemia, results should be confirmed by repeat testing. The classification and Diagnosis of Diabetes Diabetes Care 2021; 46: S19-S40. Current interpretive data was last revised 2022. Calcium 8.6 8.5 - 10.3 mg/dL [facility] Blood 11/16/2024 11:5 8 AM CDT 11/16/2024 12:47 PM CDT eLe Elena MD LAB BLOOD ORDERABLES Krystyna l Result Performing Organization Address City/[facility]/ZIP Co de Phone Number [facility] [place] [address] * (ABNORMAL) POCT glucose (11/16/2024 11:43 AM CDT) [facility] Signature Glucose, POC 250(H) 70 - 199 mg/dL Comment:Glu2: RN/MD Notified Glucose comment 1 Glu2: RN/MD Notified [facility] Blood 11/16/2024 11:4 3 AM CDT 11/16/2024 11:43 AM CDT Lee Elena MD LAB POCT ORDERABLES - DEV ICE Final Result [facility] Department [place] [address] * POCT glucose (11/16/2024 7:55 AM CDT) Glucose, POC 98 70 - 199 mg/dL Blood 11/16/2024 7:55 AM CDT 11/16/2024 7:55 AM CDT Lee Elena MD LAB POCT ORDERABLES - DEV ICE Final Result Performing Organization Address [facility] Co de Phone Number [facility] Department [place] [address] * ECG 12 lead (11/16/2024 7:09 AM CDT) Ventricular Rate EKG/Min 84 BPM [facility] Atrial Rate 84 BPM [facility] AR-Interval (MSEC) 126 ms [facility] QRS-Interval (MSEC) 66 ms [facility] QT-Interval (MSEC) 410 ms [facility] QTc 484 ms [facility] P Victoria 19 degrees [facility] R Victoria 41 degrees [facility] T Victoria [address] [facility] Diagnosis Normal sinus rhythm Nonspecific T wave abnormality Prolonged QT Abnormal ECG Confirmed by Gustabo Mcdaniels MD ([id number]) on 11/16/2024 8:39:[address] [facility] 11/16/2024 7:09 AM CDT 11/16/2024 8:39 AM CDT us Lee Elena MD ECG ORDERABLES Final Res ult Performing Organization Address [facility] Co de Phone Number [facility] * Transfuse RBC (11/16/2024 6:22 AM CDT) Blood us Lee Elena MD BLOOD TRANSFUSION ORDERAB LES Final Result Performing Organization Address [facility]/ZIP Co de Phone Number [facility] Department [place] [address] * POCT glucose (11/16/2024 4:21 AM CDT) Glucose, POC 119 70 - 199 mg/dL Blood 11/16/2024 4:21 AM CDT 11/16/2024 4:21 AM CDT Lee Elena MD LAB POCT ORDERABLES - DEV ICE Final Result Performing Organization Address [facility] Co de Phone Number [facility] [place] [address] * Type and screen (11/16/2024 1:45 AM CDT) Pathologist [facility] Zach, indirect Negative ABO Rh A Positive [facility] Blood 11/16/2024 1:45 AM CDT 11/16/2024 2:04 AM CDT Narrative [facility] - 11/16/2024 2:58 AM CDT Has the patient had Daratumumab or Isatuximab in the past 6 months?->Unknown Lee Elena MD LAB BLOOD BANK TEST ORDER ALINE Final Result Performing Organization Address [facility] [place] [address] * POCT glucose (11/16/2024 12:24 AM CDT) [facility] Glucose, POC 107 70 - 199 mg/dL Blood 11/16/2024 12:2 4 AM CDT 11/16/2024 12:24 AM CDT Lee Elena MD LAB POCT ORDERABLES - DEV ICE Final Result Performing Organization Address City/[facility] [place] [address] * Prepare RBC: 1 Units (11/15/2024 10:35 PM CDT) [facility] Product code [id number] Unit Number [id number]- U [facility] Product Blood Type APOS [facility] Dispense Status PRESUMED TRANSFUSED [facility] Blood 11/15/2024 10:3 5 PM CDT 11/15/2024 10:34 PM CDT Narrative [facility] - 11/16/2024 4:01 PM CDT Are special requirements needed? (All products are leukoreduced and CMV- safe)- >No Date required:-[id number] LRRBC # of [id number] Reasons:-Hgb <7 g/dL} us Lee Elena MD BLOOD BANK PRODUCT ORDERA BLES Final Result Performing Organization Address [facility]/ZIP Co de Phone Number [facility] Department [place] [address] * eGFR (11/15/2024 8:16 PM CDT) eGFR >90 >=60 mL/min/1. 73 m2 Comment: Interpretive Data Reference Interval Normal >/= 90 mL/min/1.73m2 Mildly decreased* 60 - 89 mL/min/1.73m2 Mildly to moderately decreased 45 - 59 mL/min/1.73m2 Moderately to severely decreased 30 - 44 mL/min/1.73m2 Severely decreased 15 - 29 mL/min/1.73m2 Kidney Failure < 15 mL/min/1.73m2 *Relative to young adult level Estimated glomerular filtration rate is determined by the 2020 CKD-EPI equation recommended by the National Kidney Foundation (A Unifying Approach to GFR Estimation: Recommendations of the NKF-ASK Task Force on Reassessing the Inclusion of Race in Diagnosing Kidney Disease, JASN 2020). The CKD-EPI equation should not be used for patients with unstable renal function and has not been validated in children and those over 70. Current interpretive data was last reviewed 2021. Blood 11/15/2024 8:16 PM CDT 11/15/2024 9:36 PM CDT us Lee Elena MD LAB BLOOD ORDERABLES Krystyna l Result SHONA BACK [facility] [place] [address] * (ABNORMAL) Differential, auto (11/15/2024 8:16 PM CDT) Neutrophil abs 2.95 1.50 - 6.50 K/cumm Imm gran abs 0.11(H) 0.00 - 0.10 K/cumm [facility] Lymphocyte abs 2.04 0.80 - 3.30 K/cumm [facility] Monocyte abs 0.49 0.20 - 0.80 K/cumm [facility] Eosinophil abs 0.10 0.00 - 0.50 K/cumm [facility] Basophil abs 0.02 0.00 - 0.10 K/cumm [facility] Neutrophil pct 51.6 % [facility] Comment: Interpretive Data Percent cell count reference ranges are not reported, since discordance with absolute values may lead to misinterpretation of CBC data. Current Interpretive Data was last revised on 2017. Imm gran pct 1.9 % [facility] Comment: Interpretive Data Percent cell count reference ranges are not reported, since discordance with absolute values may lead to misinterpretation of CBC data. Current Interpretive Data was last revised on 2017. Lymphocyte pct 35.7 % [facility] Comment: Interpretive Data Percent cell count reference ranges are not reported, since discordance with absolute values may lead to misinterpretation of CBC data. Current Interpretive Data was last revised on 2017. Monocyte pct 8.6 % [facility] Comment: Interpretive Data Percent cell count reference ranges are not reported, since discordance with absolute values may lead to misinterpretation of CBC data. Current Interpretive Data was last revised on 2017. Eosinophil pct 1.8 % [facility] Comment: Interpretive Data Percent cell count reference ranges are not reported, since discordance with absolute values may lead to misinterpretation of CBC data. Current Interpretive Data was last revised on 2017. Basophil pct 0.4 % [facility] Comment: Interpretive Data Percent cell count reference ranges are not reported, since discordance with absolute values may lead to misinterpretation of CBC data. Current Interpretive Data was last revised on 2017. Blood 11/15/2024 8:16 PM CDT 11/15/2024 9:37 PM CDT Lee Elena MD LAB BLOOD ORDERABLES Krystyna l Result Performing Organization Address [facility] Co de Phone Number [facility] Department [place] [address] * (ABNORMAL) CBC with auto differential (11/15/2024 8:16 PM CDT) Pathologist [facility] WBC 5.71 3.80 - 9.90 K/cumm Hgb 6.9(L) 11.9 - 15.5 g/dL [facility] Hct 20.7(L) 35.6 - 45.5 % [facility] Plt 592(H) 150 - 400 K/cumm [facility] MPV 11.0 9.1 - 12.3 fL [facility] RBC 2.05(L) 3.90 - 5.20 M/cumm [facility] MCV 101.0(H) 81.3 - 96.4 fL [facility] MCH 33.7(H) 27.1 - 33.3 pg [facility] MCHC 33.3 32.3 - 35.7 g/dL [facility] RDW CV 21.6(H) 11.1 - 14.9 % [facility] RDW SD 77.4(H) 35.7 - 48.1 fL [facility] NRBC abs 0.00 0.00 - 0.01 K/cumm [facility] Blood 11/15/2024 8:16 PM CDT 11/15/2024 9:37 PM CDT Lee Elena MD LAB BLOOD ORDERABLES Krystyna meyers Result Performing Organization Address [facility]/ZIP Co de Phone Number [facility] [place] [address] * Blood culture Blood (11/15/2024 8:16 PM CDT) Report Final Report: No growth Blood 11/15/2024 8:16 PM CDT 11/15/2024 9:44 PM CDT Tabitha BACK - 11/20/2024 7:00 AM CDT Collection->Peripheral 1. Blood cultures are incubated for 4 days on a continuously monitored blood culture system. The first report of a negative culture is issued within 24 hours of receipt of the specimen in the laboratory. 2. Positive culture results are reported as soon as they are detected. 3. The most important factor for detection of microbes in the setting of bloodstream infection is the volume of blood submitted for culture. Failure to collect an optimal blood volume can result in false negative blood cultures. 4. For pediatric patients, the recommended blood volume to collect follows a weight based strategy. See the electronic test catalog for collection instructions. 5. For positive blood cultures, a rapid molecular test may be performed for organism identification using the sherri ePlex blood culture identification panel for gram positive (BCID-GP) and gram negative (BCID-GN) organisms. This nucleic acid amplification test detects microbial DNA in positive blood culture broth. This assay has been cleared by the [place] Food and Drug Administration and its performance characteristics have been verified by the [facility]. For questions about this culture, contact the Microbiology Laboratory at [phone]. Interpretive data was last revised on 24. Lee Elena MD LAB MICROBIOLOGY - GENERA L ORDERABLES Final Result [facility] [place] [address] * Protime-INR (11/15/2024 8:16 PM CDT) PT 10.7 9.7 - 13.0 sec INR 0.99 0.90 - 1.20 [facility] Comment: Interpretive data Oral anticoagulant therapeutic ranges: Venous thromboembolism prophylaxis or treatment: 2.0-3.0 CARDIOLOGY Standard range: 2.0-3.0 High-intensity range: 2.5-3.5 Refer to indication-specific guidelines for appropriate target ranges for prosthetic heart valve replacement. Current interpretive data was last revised on 2019. Blood 11/15/2024 8:16 PM CDT 11/15/2024 9:39 PM CDT Lee Elena MD LAB BLOOD ORDERABLES Krystyna l Result Performing Organization Address City/[facility] Co de Phone Number [facility] [place] [address] * Phosphorus (11/15/2024 8:16 PM CDT) Phosphorus, pl 4.0 2.3 - 4.5 mg/dL Blood 11/15/2024 8:16 PM CDT 11/15/2024 9:36 PM CDT Lee Elena MD LAB BLOOD ORDERABLES Krystyna l Result Performing Organization Address [facility] Co de Phone Number [facility] [place] [address] * Magnesium (11/15/2024 8:16 PM CDT) Pathologist [facility] Magnesium 1.6 1.4 - 2.5 mg/dL Blood 11/15/2024 8:16 PM CDT 11/15/2024 9:36 PM CDT Lee Elena MD LAB BLOOD ORDERABLES Krystyna l Result Performing Organization Address City/[facility] [place] [address] * (ABNORMAL) Hepatic function panel (11/15/2024 8:16 PM CDT) Bilirubin, total 0.5 0.1 - 1.2 mg/dL Bilirubin, direct 0.4(H) 0.1 - 0.3 mg/dL [facility] Protein, pl 4.8(L) 6.5 - 8.5 g/dL [facility] Albumin 2.1(L) 3.5 - 5.0 g/dL [facility] Alk phos 171(H) 40 - 130 Units/L [facility] ALT 11 7 - 45 Units/L [facility] AST 39 10 - 45 Units/L [facility] Blood 11/15/2024 8:16 PM CDT 11/15/2024 9:36 PM CDT us Lee Elena MD LAB BLOOD ORDERABLES Krystyna l Result [facility] [place] [address] * (ABNORMAL) Basic metabolic panel (11/15/2024 8:16 PM CDT) Pathologist [facility] Sodium 141 135 - 145 mmol/L Potassium, pl 4.0 3.3 - 4.9 mmol/L [facility] Chloride 105 97 - 110 mmol/L [facility] CO2 29 22 - 32 mmol/L [facility] Anion gap 7 2 - 15 mmol/L [facility] BUN 7 6 - 25 mg/dL [facility] Creatinine 0.46(L) 0.60 - 1.10 mg/dL [facility] Glucose 95 70 - 199 mg/dL [facility] Comment: Interpretive Data Fasting glucose >/= 126 mg/dl is diagnostic for diabetes. Fasting is defined as no caloric intake for at least 8 hours. Fasting glucose between 100 mg/dl to 125 mg/dl is diagnostic of prediabetes. In a patient with classic symptoms of hyperglycemia or hyperglycemic crisis, a random glucose >/= 200 mg/dl is diagnostic for diabetes. In the absence of unequivocal hyperglycemia, results should be confirmed by repeat testing. The classification and Diagnosis of Diabetes Diabetes Care 2021; 46: S19-S40. Current interpretive data was last revised 2022. Calcium 7.7(L) 8.5 - 10.3 mg/dL [facility] Blood 11/15/2024 8:16 PM CDT 11/15/2024 9:36 PM CDT Lee Elena MD LAB BLOOD ORDERABLES Krystyna l Result Performing Organization Address [facility] Co de Phone Number [facility] [place] [place] [address] * POCT glucose (11/15/2024 7:40 PM CDT) Glucose, POC 117 70 - 199 mg/dL Blood 11/15/2024 7:40 PM CDT 11/15/2024 7:40 PM CDT Lee Elena MD LAB POCT ORDERABLES - DEV ICE Final Result Performing Organization Address [facility] de Phone Number [facility] [place] [address] * POCT glucose (11/15/2024 5:11 PM CDT) Glucose, POC 100 70 - 199 mg/dL Blood 11/15/2024 5:11 PM CDT 11/15/2024 5:11 PM CDT Lee Elena MD LAB POCT ORDERABLES - DEV ICE Final Result Performing Organization Address [facility] de Phone Number [facility] [place] [address] * POCT glucose (11/15/2024 11:19 AM CDT) Glucose, POC 127 70 - 199 mg/dL Blood 11/15/2024 11:1 9 AM CDT 11/15/2024 11:19 AM CDT Lee Elena MD LAB POCT ORDERABLES - DEV ICE Final Result Performing Organization Address [facility]/State/ZIP [place] [address] * POCT glucose (11/15/2024 8:44 AM CDT) Glucose, POC 106 70 - 199 mg/dL Blood 11/15/2024 8:44 AM CDT 11/15/2024 8:44 AM CDT Lee Elena MD LAB POCT ORDERABLES - DEV ICE Final Result Performing Organization Address City/[facility] [place] [address] * POCT glucose (11/15/2024 4:01 AM CDT) Glucose, POC 102 70 - 199 mg/dL Blood 11/15/2024 4:01 AM CDT 11/15/2024 4:01 AM CDT Lee Elena MD LAB POCT ORDERABLES - DEV ICE Final Result Performing Organization Address [facility] Co de Phone Number [facility] [place] [address] * POCT glucose (11/15/2024 12:15 AM CDT) Glucose, POC 110 70 - 199 mg/dL Blood 11/15/2024 12:1 5 AM CDT 11/15/2024 12:15 AM CDT Lee Elena MD LAB POCT ORDERABLES - DEV ICE Final Result Performing Organization Address City/[facility] [place] [address] * ECG 12 lead (11/14/2024 10:27 PM CDT) Pathologist [facility] Ventricular Rate EKG/Min 103 BPM [facility] Atrial Rate [address] [facility] AR-Interval (MSEC) 124 ms [facility] QRS-Interval (MSEC) 70 ms [facility] QT-Interval (MSEC) [address] [facility] QTc [address] [facility] P Victoria 23 degrees [facility] R Victoria [address] [facility] T Victoria [address] [facility] Diagnosis Sinus tachycardia Nonspecific T wave abnormality Abnormal ECG Confirmed by Gustabo Mcdaniels MD ([id number]) on 11/15/2024 4:29:[address] [facility] 11/14/2024 10:2 7 PM CDT 11/15/2024 4:29 PM CDT Lee Elena MD ECG ORDERABLES Final Res ult Performing Organization Address [facility] de Phone Number [facility] * N. gonorrhoeae/C. trachomatis Amplification Urine (11/14/2024 10:01 PM CDT) [facility] C. trachomatis Not Detected Not Detected [facility] N. gonorrhoeae Not Detected Not Detected [facility] [facility] Comment: Interpretive Data This assay detects Chlamydia trachomatis and Neisseria gonorrhoeae by nucleic acid amplification testing (NAAT). This assay has been cleared by the [place] Food and Drug administration. The performance characteristics of this test have been verified by the [facility]ious Disease laboratory. The performance characteristics of this test have not been evaluated in individuals less than 14 years of age. Current Interpretive Data last revised 2023. Urine (None) 11/14/2024 10:0 1 PM CDT 11/15/2024 3:36 AM CDT Lee Elena MD LAB MICROBIOLOGY - GENERA L ORDERABLES Final Result [facility] [place] [address] [facility] * eGFR (11/14/2024 9:16 PM CDT) [facility] eGFR >90 >=60 mL/min/1. 73 m2 Comment: Interpretive Data Reference Interval Normal >/= 90 mL/min/1.73m2 Mildly decreased* 60 - 89 mL/min/1.73m2 Mildly to moderately decreased 45 - 59 mL/min/1.73m2 Moderately to severely decreased 30 - 44 mL/min/1.73m2 Severely decreased 15 - 29 mL/min/1.73m2 Kidney Failure < 15 mL/min/1.73m2 *Relative to young adult level Estimated glomerular filtration rate is determined by the 2020 CKD-EPI equation recommended by the National Kidney [employer] (A Unifying Approach to GFR Estimation: Recommendations of the NKF-ASK Task Force on Reassessing the Inclusion of Race in Diagnosing Kidney Disease, JASN 2020). The CKD-EPI equation should not be used for patients with unstable renal function and has not been validated in children and those over 70. Current interpretive data was last reviewed 2021. Blood 11/14/2024 9:16 PM CDT 11/14/2024 10:29 PM CDT us Lee Elena MD LAB BLOOD ORDERABLES Krystyna meyers Result [facility] [place] [address] * (ABNORMAL) Differential, auto (11/14/2024 9:16 PM CDT) [facility] Neutrophil abs 4.79 1.50 - 6.50 K/cumm Imm gran abs 0.18(H) 0.00 - 0.10 K/cumm [facility] Lymphocyte abs 2.09 0.80 - 3.30 K/cumm [facility] Monocyte abs 0.68 0.20 - 0.80 K/cumm [facility] Eosinophil abs 0.10 0.00 - 0.50 K/cumm [facility] Basophil abs 0.05 0.00 - 0.10 K/cumm [facility] Neutrophil pct 60.7 % [facility] Comment: Interpretive Data Percent cell count reference ranges are not reported, since discordance with absolute values may lead to misinterpretation of CBC data. Current Interpretive Data was last revised on 2017. Imm gran pct 2.3 % [facility] Comment: Interpretive Data Percent cell count reference ranges are not reported, since discordance with absolute values may lead to misinterpretation of CBC data. Current Interpretive Data was last revised on 2017. Lymphocyte pct 26.5 % [facility] Comment: Interpretive Data Percent cell count reference ranges are not reported, since discordance with absolute values may lead to misinterpretation of CBC data. Current Interpretive Data was last revised on 2017. Monocyte pct 8.6 % [facility] Comment: Interpretive Data Percent cell count reference ranges are not reported, since discordance with absolute values may lead to misinterpretation of CBC data. Current Interpretive Data was last revised on 2017. Eosinophil pct 1.3 % [facility] Comment: Interpretive Data Percent cell count reference ranges are not reported, since discordance with absolute values may lead to misinterpretation of CBC data. Current Interpretive Data was last revised on 2017. Basophil pct 0.6 % [facility] Comment: Interpretive Data Percent cell count reference ranges are not reported, since discordance with absolute values may lead to misinterpretation of CBC data. Current Interpretive Data was last revised on 2017. Blood 11/14/2024 9:16 PM CDT 11/14/2024 10:29 PM CDT Lee Elena MD LAB BLOOD ORDERABLES Krystyna meyers Result [facility] Department [place] [address] * (ABNORMAL) CBC with auto differential (11/14/2024 9:16 PM CDT) WBC 7.89 3.80 - 9.90 K/cumm Hgb 7.4(L) 11.9 - 15.5 g/dL [facility] Hct 22.1(L) 35.6 - 45.5 % [facility] Plt 501(H) 150 - 400 K/cumm [facility] MPV 11.5 9.1 - 12.3 fL [facility] RBC 2.25(L) 3.90 - 5.20 M/cumm [facility] MCV 98.2(H) 81.3 - 96.4 fL [facility] MCH 32.9 27.1 - 33.3 pg [facility] MCHC 33.5 32.3 - 35.7 g/dL [facility] RDW CV 21.2(H) 11.1 - 14.9 % [facility] RDW SD 74.3(H) 35.7 - 48.1 fL [facility] NRBC abs 0.00 0.00 - 0.01 K/cumm [facility] Blood 11/14/2024 9:16 PM CDT 11/14/2024 10:29 PM CDT Lee Elena MD LAB BLOOD ORDERABLES Krystyna meyers Result [facility] [place] [address] * Blood culture Blood (11/14/2024 9:16 PM CDT) Report Final Report: No growth Blood 11/14/2024 9:16 PM CDT 11/14/2024 10:47 PM CDT Narrative [facility] - 11/19/2024 7:00 AM CDT From a different site than #1. Collection->Peripheral 1. Blood cultures are incubated for 4 days on a continuously monitored blood culture system. The first report of a negative culture is issued within 24 hours of receipt of the specimen in the laboratory. 2. Positive culture results are reported as soon as they are detected. 3. The most important factor for detection of microbes in the setting of bloodstream infection is the volume of blood submitted for culture. Failure to collect an optimal blood volume can result in false negative blood cultures. 4. For pediatric patients, the recommended blood volume to collect follows a weight based strategy. See the electronic test catalog for collection instructions. 5. For positive blood cultures, a rapid molecular test may be performed for organism identification using the sherri ePlex blood culture identification panel for gram positive (BCID-GP) and gram negative (BCID-GN) organisms. This nucleic acid amplification test detects microbial DNA in positive blood culture broth. This assay has been cleared by the [place] Food and Drug Administration and its performance characteristics have been verified by the [facility]. For questions about this culture, contact the Microbiology Laboratory at [phone]. Interpretive data was last revised on 24. us Lee Elena MD LAB MICROBIOLOGY - GENERA L ORDERABLES Final Result [facility] [place] [address] * (ABNORMAL) Blood culture Blood (11/14/2024 9:16 PM CDT) Direct Specimen Exam Stain: Gram Positive Cocci in clusters Time to culture positivity (anaerobic media): 58.1 hours Notification of: Gram Positive Cocci in clusters called to and read back by: Ash Valencia M.D. [id number] on 11/17/2024 10:04:19 by: Nani Bueno ML Report Final Report: Staphylococcus aureus For susceptibility results, refer to accession number [id number] on the blood culture from 11/14/2024 (.) [facility] Organism STAPHYLOCOCCUS AUREUS [facility] Blood 11/14/2024 9:16 PM CDT 11/14/2024 10:47 PM CDT Narrative [facility] - 11/20/2024 8:57 AM CDT Collection->Peripheral 1. Blood cultures are incubated for 4 days on a continuously monitored blood culture system. The first report of a negative culture is issued within 24 hours of receipt of the specimen in the laboratory. 2. Positive culture results are reported as soon as they are detected. 3. The most important factor for detection of microbes in the setting of bloodstream infection is the volume of blood submitted for culture. Failure to collect an optimal blood volume can result in false negative blood cultures. 4. For pediatric patients, the recommended blood volume to collect follows a weight based strategy. See the electronic test catalog for collection instructions. 5. For positive blood cultures, a rapid molecular test may be performed for organism identification using the sherri ePlex blood culture identification panel for gram positive (BCID-GP) and gram negative (BCID-GN) organisms. This nucleic acid amplification test detects microbial DNA in positive blood culture broth. This assay has been cleared by the [place] Food and Drug Administration and its performance characteristics have been verified by the [facility]. For questions about this culture, contact the Microbiology Laboratory at [phone]. Interpretive data was last revised on 24. Lee Elena MD LAB MICROBIOLOGY - GENERA L ORDERABLES Final Result Performing Organization Address [facility] Co de Phone Number [facility] [place] [address] * Protime-INR (11/14/2024 9:16 PM CDT) PT 12.1 9.7 - 13.0 sec INR 1.12 0.90 - 1.20 [facility] Comment: Interpretive data Oral anticoagulant therapeutic ranges: Venous thromboembolism prophylaxis or treatment: 2.0-3.0 CARDIOLOGY Standard range: 2.0-3.0 High-intensity range: 2.5-3.5 Refer to indication-specific guidelines for appropriate target ranges for prosthetic heart valve replacement. Current interpretive data was last revised on 2019. Blood 11/14/2024 9:16 PM CDT 11/14/2024 10:35 PM CDT Lee Elena MD LAB BLOOD ORDERABLES Krystyna l Result Performing Organization Address [facility] Co de Phone Number [facility] [place] [address] * Uric acid (11/14/2024 9:16 PM CDT) Uric acid 3.4 2.5 - 7.0 mg/dL Blood 11/14/2024 9:16 PM CDT 11/14/2024 10:34 PM CDT Lee Elena MD LAB BLOOD ORDERABLES Krystyna l Result Performing Organization Address City/[facility] Co de Phone Number [facility] [place] [address] * (ABNORMAL) Phosphorus (11/14/2024 9:16 PM CDT) Phosphorus, pl 5.1(H) 2.3 - 4.5 mg/dL Blood 11/14/2024 9:16 PM CDT 11/14/2024 10:29 PM CDT Lee Elena MD LAB BLOOD ORDERABLES Krystyna l Result Performing Organization Address [facility] de Phone Number [facility] Department [place] [address] * Magnesium (11/14/2024 9:16 PM CDT) Magnesium 1.9 1.4 - 2.5 mg/dL Blood 11/14/2024 9:16 PM CDT 11/14/2024 10:29 PM CDT Lee Elena MD LAB BLOOD ORDERABLES Krystyna l Result Performing Organization Address City/[facility] Co de Phone Number [facility] [place] [address] * Folate (11/14/2024 9:16 PM CDT) Folic acid 16.4 >=5.0 ng/mL Blood 11/14/2024 9:16 PM CDT 11/14/2024 10:29 PM CDT Lee Elena MD LAB BLOOD ORDERABLES Krystyna l Result Performing Organization Address City/[facility]/ZIP Co de Phone Number [facility] Department [place] [address] * (ABNORMAL) Vitamin B12 (11/14/2024 9:16 PM CDT) Pathologist [facility] Vitamin B12 1,820(H) 230 - 1,250 pg/mL Blood 11/14/2024 9:16 PM CDT 11/14/2024 10:29 PM CDT Lee Elena MD LAB BLOOD ORDERABLES Krystyna l Result Performing Organization Address [facility] Co de Phone Number [facility] [place] [address] * (ABNORMAL) Hepatic function panel (11/14/2024 9:16 PM CDT) [facility] Bilirubin, total 0.6 0.1 - 1.2 mg/dL Bilirubin, direct 0.5(H) 0.1 - 0.3 mg/dL [facility] Protein, pl 4.7(L) 6.5 - 8.5 g/dL [facility] Albumin 2.0(L) 3.5 - 5.0 g/dL [facility] Alk phos 166(H) 40 - 130 Units/L [facility] ALT 10 7 - 45 Units/L [facility] AST 41 10 - 45 Units/L [facility] Blood 11/14/2024 9:16 PM CDT 11/14/2024 10:29 PM CDT Lee Elena MD LAB BLOOD ORDERABLES Krystyna l Result Performing Organization Address [facility] [place] [address] * (ABNORMAL) Basic metabolic panel (11/14/2024 9:16 PM CDT) [facility] Sodium 139 135 - 145 mmol/L Potassium, pl 3.7 3.3 - 4.9 mmol/L [facility] Chloride 100 97 - 110 mmol/L [facility] CO2 27 22 - 32 mmol/L [facility] Anion gap 12 2 - 15 mmol/L [facility] BUN 5(L) 6 - 25 mg/dL [facility] Creatinine 0.48(L) 0.60 - 1.10 mg/dL [facility] Glucose 84 70 - 199 mg/dL [facility] Comment: Interpretive Data Fasting glucose >/= 126 mg/dl is diagnostic for diabetes. Fasting is defined as no caloric intake for at least 8 hours. Fasting glucose between 100 mg/dl to 125 mg/dl is diagnostic of prediabetes. In a patient with classic symptoms of hyperglycemia or hyperglycemic crisis, a random glucose >/= 200 mg/dl is diagnostic for diabetes. In the absence of unequivocal hyperglycemia, results should be confirmed by repeat testing. The classification and Diagnosis of Diabetes Diabetes Care 2021; 46: S19-S40. Current interpretive data was last revised 2022. Calcium 7.7(L) 8.5 - 10.3 mg/dL [facility] Blood 11/14/2024 9:16 PM CDT 11/14/2024 10:29 PM CDT Lee Elena MD LAB BLOOD ORDERABLES Krystyna l Result Performing Organization Address City/[facility]/ZIP Co de Phone Number [facility] [place] [address] * POCT glucose (11/14/2024 7:37 PM CDT) Glucose, POC 119 70 - 199 mg/dL Blood 11/14/2024 7:37 PM CDT 11/14/2024 7:37 PM CDT Lee Elena MD LAB POCT ORDERABLES - DEV ICE Final Result Performing Organization Address City/[facility]/ZIP Co de Phone Number [facility] Department [place] [address] * POCT glucose (11/14/2024 4:07 PM CDT) Glucose, POC 89 70 - 199 mg/dL Blood 11/14/2024 4:07 PM CDT 11/14/2024 4:07 PM CDT us Lee Elena MD LAB POCT ORDERABLES - DEV ICE Final Result [facility] [place] [address] * TRANSESOPHAGEAL ECHO (MAXIMINO) W DOPPLER/CF WO CONTRAST (11/14/2024 2:19 PM CDT) Pathologist [facility] LV EF 45 % CONS SCIMAGE Anatomical Region Laterality Modality Echocardiography 11/14/2024 1:49 PM CDT Narrative 11/15/2024 2:05 PM CDT [facility] [place] [address] Transesophageal Echocardiographic Report Patient Name: HAYLEY LEÓN L : 1990 (34y 9m) Gender: F Study Date: 11/14/2024 01:49:02 PM Ht(Inch): Wt(Lb): 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 Performing Physician: Performed by Aubrey Horvath and Julissa Mcgowan. MAXIMINO probe placed by Zully Masterson. Consent: Informed consent was obtained from the patient in writing. The risks and benefits of the procedure were explained in detail to the patient, including but not limited to the risk of aspiration, dysphagia, and esophageal perforation. After a thorough discussion of these risks and benefits, the patient agreed to proceed. Description: A complete transesophageal echocardiogram study was performed. Additional evaluation with color flow Doppler and limited spectral Doppler was performed. Continuous HR, BP, ECG, and O2 sat monitoring was performed during the procedure. The patient received pre-procedural education. Baseline vital signs and a focused history and physical were obtained. The MAXIMINO study was then performed under deep sedation with IV propofol provided by the anesthesiology service. After suitable sedation, the probe was passed without difficulty. Continuous pulse oximetry, electrocardiographic monitoring, and blood pressure monitoring were maintained throughout the procedure. No complications were noted. Medications: Medication(s) given during the procedure: per anesthesia. Pre Vitals: HR: 89 bpm. RR: 21. BP: 98/64 mmHg. Sp02: 97 %. Post Vitals: HR: 108 bpm. RR: 24. BP: 103/78 mmHg. Sp02: 96 %. INDICATIONS: Bacteremia. FINDINGS: Study Quality: Good. Left Ventricle: Left ventricular systolic function appears mildly reduced. LV Ejection Fraction is visually estimated to be 45 %. Right Ventricle: The right ventricule appears normal in size. Right ventricular systolic function appears normal. Left Atrium: Normal left atrial size and morphology. The left atrial appendage is normal in appearance with no evidence of thrombus and emptying velocities are normal. Atrial Septum: Normal interatrial septum. Mitral Valve: Normal mitral valve structure. Trace MR. Aortic Valve: Normal appearance and function of the aortic valve. Trileaflet aortic valve. Tricuspid Valve: No tricuspid regurgitation seen. Pericardium: Small pericardial effusion. Aorta: Normal aortic root. Pulmonary Veins: Pulmonary veins are normal in appearance and pulse Doppler interrogation shows normal systolic predominant flow. Other Findings: Mobile echodense mass best seen on lateral wall, possibly on chordae/papillary muscle measuring 1.76cmx 0.9cm. Additional calcified, echodense mass in LV apex, measuring 0.9x 0.9cm. Findings are likely most consistent with endocarditis, although cannot rule out thrombus. CONCLUSIONS: 1. Left ventricular systolic function appears mildly reduced. 2. The right ventricule appears normal in size. Right ventricular systolic function appears normal. 3. Normal left atrial size. The left atrial appendage is normal in appearance with no evidence of thrombus. 4. Normal mitral valve structure. Trace MR. No evidence of papillary muscle rupture. 5. Normal appearance and function of the trileaflet aortic valve. 6. Mobile echodense mass best seen on lateral wall, possibly on chordae/papillary muscle measuring 1.76cmx 0.9cm. Findings are likely most consistent with endocarditis, although cannot rule out thrombus. 7. Additional calcified, echodense mass in LV apex, measuring 0.9x 0.9cm. 8. There is no evidence of valvular vegetations by transesophageal echocardiography. ATTESTATION: I have personally reviewed this study with a fellow in a teaching setting and attest to the findings and conclusions. - DISCLAIMER: The study images and the final report will be retained in the patient chart by the Echo Laboratory for the legally required time period. This chart constitutes the legal record of any testing performed. MEASUREMENTS: 2D/MM Value Range Estimated EF 45 % Electronically Signed By: Aubrey Horvath M.D. 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 Performing Physician: Performed by Aubrey Horvath and Julissa Mcgowan. TEEprobe placed by Zully Masterson. Consent: Informed consent was obtained from the patient in writing. Therisks and benefits of the procedure were explained in detail to the patient,including but not limited to the risk of aspiration, dysphagia, and esophageal perforation.After a thorough discussion of these risks and benefits, the patient agreed toproceed. Description: A complete transesophageal echocardiogram study wasperformed. Additional evaluation with color flow Doppler and limited spectral Doppler wasperformed. Continuous HR, BP, ECG, and O2 sat monitoring was performed during the procedure. Thepatient received pre-procedural education. Baseline vital signs and a focusedhistory and physical were obtained. The MAXIMINO study was then performed under deepsedation with IV propofol provided by the anesthesiology service. After suitable sedation,the probe was passed without difficulty. Continuous pulse oximetry, electrocardiographicmonitoring, and blood pressure monitoring were maintained throughout the procedure. Nocomplications were noted. Medications: Medication(s) given during the procedure: per anesthesia. Pre Vitals: HR: 89 bpm. RR: 21. BP: 98/64 mmHg. Sp02: 97 %. Post Vitals: HR: 108 bpm. RR: 24. BP: 103/78 mmHg. Sp02: 96 %. INDICATIONS: Bacteremia. FINDINGS: Study Quality: Good. Left Ventricle: Left ventricular systolic function appears mildly reduced.LV Ejection Fraction is visually estimated to be 45 %. Right Ventricle: The right ventricule appears normal in size. Rightventricular systolic function appears normal. Left Atrium: Normal left atrial size and morphology. The left atrialappendage is normal in appearance with no evidence of thrombus and emptying velocities arenormal. Atrial Septum: Normal interatrial septum. Mitral Valve: Normal mitral valve structure. Trace MR. Aortic Valve: Normal appearance and function of the aortic valve.Trileaflet aortic valve. Tricuspid Valve: No tricuspid regurgitation seen. Pericardium: Small pericardial effusion. Aorta: Normal aortic root. Pulmonary Veins: Pulmonary veins are normal in appearance and pulseDoppler interrogation shows normal systolic predominant flow. Other Findings: Mobile echodense mass best seen on lateral wall, possiblyon chordae/papillary muscle measuring 1.76cmx 0.9cm. Additional calcified,echodense mass in LV apex, measuring 0.9x 0.9cm. Findings are likely most consistent withendocarditis, although cannot rule out thrombus. CONCLUSIONS: 1. Left ventricular systolic function appears mildly reduced. 2. The right ventricule appears normal in size. Right ventricular systolicfunction appears normal. 3. Normal left atrial size. The left atrial appendage is normal inappearance with no evidence of thrombus. 4. Normal mitral valve structure. Trace MR. No evidence of papillarymuscle rupture. 5. Normal appearance and function of the trileaflet aortic valve. 6. Mobile echodense mass best seen on lateral wall, possibly onchordae/papillary muscle measuring 1.76cmx 0.9cm. Findings are likely most consistent withendocarditis, although cannot rule out thrombus. 7. Additional calcified, echodense mass in LV apex, measuring 0.9x0.9cm. 8. There is no evidence of valvular vegetations by transesophagealechocardiography. ATTESTATION: I have personally reviewed this study with a fellow in a teaching settingand attest to the findings and conclusions. - DISCLAIMER: The study images and the final report will be retained in the patientchart by the Echo Laboratory for the legally required time period. This chart constitutesthe legal record of any testing performed. MEASUREMENTS: 2D/MM Value Range Estimated EF 45 % Electronically Signed By: Aubrey Horvath M.D. 11/15/2024 2:04:41 PM CDT Julissa Mcgowan MD CV ECHO PROCEDURES Fin al Result * AR AN ELECTIVE ENDOTRACHEAL AIRWAY, AR AN PROCEDURE PLACEHOLDER (11/14/2024 1:56 PM CDT) Narrative Zully Masterson CRNA - 11/14/2024 1:56 PM CDT Zully Masterson CRNA 11/14/2024 1:58 PM Airway Patient location: OR Urgency: elective Indications for airway management: anesthesia Difficult airway: no Staff: Placed by: Anesthesiologist: Rudy Licona MD Emergent airway documentation: Risks and benefits discussed: yes Consent obtained: yes Consent given by: patient Airway prep: Preoxygenated: yes Patient position: sniffing Mask difficulty assessment: 0 - not attempted Spontaneous ventilation during airway: absent Sedation level during airway: GA Final airway details: Final airway type: endotracheal airway Tube type: ETT ETT size: 6.0 mm Cuffed: yes Technique used for successful ETT placement: video laryngoscopy Devices/Methods used in placement: intubating stylet Insertion site: oral Video blade type: Vaughan Blade size: 3 Cormack-Lehane (video): grade I - full view of glottis Cuff volume: 5 mL Cuff inflated with: air ETT to teeth: 20 cm Placement verified by: auscultation and CO2 detection Airway secured with: silk tape Number of attempts: 1 Rudy Licona MD ANESTHESIA ORDERABLE S Final Result * POCT glucose (11/14/2024 12:33 PM CDT) Glucose, POC 86 70 - 199 mg/dL Blood 11/14/2024 12:3 3 PM CDT 11/14/2024 12:33 PM CDT Lee Elena MD LAB POCT ORDERABLES - DEV ICE Final Result [facility] [place] [address] * POCT glucose (11/14/2024 10:49 AM CDT) Glucose, POC 88 70 - 199 mg/dL Blood 11/14/2024 10:4 9 AM CDT 11/14/2024 10:49 AM CDT Lee Elena MD LAB POCT ORDERABLES - [place] [address] * POCT glucose (11/14/2024 7:36 AM CDT) Glucose, POC 94 70 - 199 mg/dL Blood 11/14/2024 7:36 AM CDT 11/14/2024 7:36 AM CDT us Lee Elena MD LAB POCT ORDERABLES - [place] [address] * POCT glucose (11/14/2024 4:28 AM CDT) Glucose, POC 85 70 - 199 mg/dL Blood 11/14/2024 4:28 AM CDT 11/14/2024 4:28 AM CDT Lee Elena MD LAB POCT ORDERABLES - DEV ICE Final Result Performing Organization Address City/[facility]/[place] [address] * (ABNORMAL) Blood culture Blood (11/14/2024 12:27 AM CDT) [facility] Direct Specimen Exam Stain: Gram Positive Cocci in clusters Time to culture positivity (anaerobic media): 36.1 hours Report Final Report: Staphylococcus aureus For susceptibility results, refer to accession number [id number] on the blood culture from 11/14/2024 (.) [facility] Organism STAP[facility]US [facility]US [facility] Blood 11/14/2024 12:2 7 AM CDT 11/14/2024 1:42 AM CDT Narrative SHONA BACK - 11/19/2024 7:49 AM CDT From a different site than #1. Collection->Peripheral 1. Blood cultures are incubated for 4 days on a continuously monitored blood culture system. The first report of a negative culture is issued within 24 hours of receipt of the specimen in the laboratory. 2. Positive culture results are reported as soon as they are detected. 3. The most important factor for detection of microbes in the setting of bloodstream infection is the volume of blood submitted for culture. Failure to collect an optimal blood volume can result in false negative blood cultures. 4. For pediatric patients, the recommended blood volume to collect follows a weight based strategy. See the electronic test catalog for collection instructions. 5. For positive blood cultures, a rapid molecular test may be performed for organism identification using the sherri ePlex blood culture identification panel for gram positive (BCID-GP) and gram negative (BCID-GN) organisms. This nucleic acid amplification test detects microbial DNA in positive blood culture broth. This assay has been cleared by the [place] Food and Drug Administration and its performance characteristics have been verified by the [facility]. For questions about this culture, contact the Microbiology Laboratory at [phone]. Interpretive data was last revised on 24. us Lee Elena MD LAB MICROBIOLOGY - GENERA L ORDERABLES Final Result SHONA BACK [facility] Department [place] [address] * (ABNORMAL) Blood culture Blood (11/14/2024 12:16 AM CDT) Direct Specimen Exam Stain: Gram Positive Cocci in clusters Time to culture positivity (anaerobic media): 18.6 hours Time to culture positivity (aerobic media): 23.8 hours Direct Specimen Exam Molecular Analysis: Methicillin-suscep tible Staphylococcus aureus (MSSA) detected by the sherri ePlex BCID-GP panel. This test does not exclude the possibility of a mixed bacterial infection. [facility] Report Final Report: Staphylococcus aureus Methicillin susceptible (MSSA) by penicillin binding protein 2a (PBP2a) testing. (.) [facility] Organism STAPHYLOCOCCUS AUREUS [facility] Blood 11/14/2024 12:1 6 AM CDT 11/14/2024 1:42 AM CDT Narrative [facility] - 11/17/2024 1:38 PM CDT Collection->Peripheral 1. Blood cultures are incubated for 4 days on a continuously monitored blood culture system. The first report of a negative culture is issued within 24 hours of receipt of the specimen in the laboratory. 2. Positive culture results are reported as soon as they are detected. 3. The most important factor for detection of microbes in the setting of bloodstream infection is the volume of blood submitted for culture. Failure to collect an optimal blood volume can result in false negative blood cultures. 4. For pediatric patients, the recommended blood volume to collect follows a weight based strategy. See the electronic test catalog for collection instructions. 5. For positive blood cultures, a rapid molecular test may be performed for organism identification using the sherri ePlex blood culture identification panel for gram positive (BCID-GP) and gram negative (BCID-GN) organisms. This nucleic acid amplification test detects microbial DNA in positive blood culture broth. This assay has been cleared by the [place] Food and Drug Administration and its performance characteristics have been verified by the [facility]. For questions about this culture, contact the Microbiology Laboratory at [phone]. Interpretive data was last revised on 24. Organism Antibiotic Method Susceptibility Staphylococcus aureus Doxycycline (ROGER) INTERPRETATIO N Susceptible Staphylococcus aureus Linezolid (ROGER) INTERPRETATIO N Susceptible Staphylococcus aureus Trimethoprim with Sulfamethoxazole (ROGER) INTERPRETATION Susceptible Staphylococcus aureus Clindamycin (ROGER) INTERPRETATIO N Susceptible Staphylococcus aureus Erythromycin (ROGER) INTERPRETATIO N Susceptible Staphylococcus aureus Vancomycin (ROGER) INTERPRETATIO N Susceptible Staphylococcus aureus Oxacillin (ROGER) INTERPRETATIO N Susceptible Staphylococcus aureus Cefazolin (ROGER) INTERPRETATIO N Susceptible Staphylococcus aureus Ceftriaxone (ROGER) INTERPRETATIO N Susceptible Lee Elena MD LAB MICROBIOLOGY - GENERA L ORDERABLES Final Result [facility] [place] [address] * POCT glucose (11/13/2024 11:28 PM CDT) Glucose, POC 108 70 - 199 mg/dL Blood 11/13/2024 11:2 8 PM CDT 11/13/2024 11:28 PM CDT Lee Elena MD LAB POCT ORDERABLES - DEV ICE Final Result Performing Organization Address [facility] Co de Phone Number [facility] [place] [address] * eGFR (11/13/2024 9:44 PM CDT) eGFR >90 >=60 mL/min/1. 73 m2 Comment: Interpretive Data Reference Interval Normal >/= 90 mL/min/1.73m2 Mildly decreased* 60 - 89 mL/min/1.73m2 Mildly to moderately decreased 45 - 59 mL/min/1.73m2 Moderately to severely decreased 30 - 44 mL/min/1.73m2 Severely decreased 15 - 29 mL/min/1.73m2 Kidney Failure < 15 mL/min/1.73m2 *Relative to young adult level Estimated glomerular filtration rate is determined by the 2020 CKD-EPI equation recommended by the National Kidney Foundation (A Unifying Approach to GFR Estimation: Recommendations of the NKF-ASK Task Force on Reassessing the Inclusion of Race in Diagnosing Kidney Disease, JASN 2020). The CKD-EPI equation should not be used for patients with unstable renal function and has not been validated in children and those over 70. Current interpretive data was last reviewed 2021. Blood 11/13/2024 9:44 PM CDT 11/13/2024 10:33 PM CDT us Lee Elena MD LAB BLOOD ORDERABLES Krystyna meyers Result [facility] [place] [address] * (ABNORMAL) Differential, auto (11/13/2024 9:44 PM CDT) Neutrophil abs 6.19 1.50 - 6.50 K/cumm Imm gran abs 0.35(H) 0.00 - 0.10 K/cumm [facility] Lymphocyte abs 2.02 0.80 - 3.30 K/cumm [facility] Monocyte abs 0.92(H) 0.20 - 0.80 K/cumm [facility] Eosinophil abs 0.08 0.00 - 0.50 K/cumm [facility] Basophil abs 0.05 0.00 - 0.10 K/cumm [facility] Neutrophil pct 64.5 % [facility] Comment: Interpretive Data Percent cell count reference ranges are not reported, since discordance with absolute values may lead to misinterpretation of CBC data. Current Interpretive Data was last revised on 2017. Imm gran pct 3.6 % [facility] Comment: Interpretive Data Percent cell count reference ranges are not reported, since discordance with absolute values may lead to misinterpretation of CBC data. Current Interpretive Data was last revised on 2017. Lymphocyte pct 21.0 % [facility] Comment: Interpretive Data Percent cell count reference ranges are not reported, since discordance with absolute values may lead to misinterpretation of CBC data. Current Interpretive Data was last revised on 2017. Monocyte pct 9.6 % [facility] Comment: Interpretive Data Percent cell count reference ranges are not reported, since discordance with absolute values may lead to misinterpretation of CBC data. Current Interpretive Data was last revised on 2017. Eosinophil pct 0.8 % [facility] Comment: Interpretive Data Percent cell count reference ranges are not reported, since discordance with absolute values may lead to misinterpretation of CBC data. Current Interpretive Data was last revised on 2017. Basophil pct 0.5 % [facility] Comment: Interpretive Data Percent cell count reference ranges are not reported, since discordance with absolute values may lead to misinterpretation of CBC data. Current Interpretive Data was last revised on 2017. Blood 11/13/2024 9:44 PM CDT 11/13/2024 10:32 PM CDT Lee Elena MD LAB BLOOD ORDERABLES Krystyna l Result Performing Organization Address [facility] Co de Phone Number [facility] Department [place] [address] * (ABNORMAL) CBC with auto differential (11/13/2024 9:44 PM CDT) WBC 9.61 3.80 - 9.90 K/cumm Hgb 8.2(L) 11.9 - 15.5 g/dL [facility] Hct 23.7(L) 35.6 - 45.5 % [facility] Plt 363 150 - 400 K/cumm [facility] MPV 12.3 9.1 - 12.3 fL [facility] RBC 2.50(L) 3.90 - 5.20 M/cumm [facility] MCV 94.8 81.3 - 96.4 fL [facility] MCH 32.8 27.1 - 33.3 pg [facility] MCHC 34.6 32.3 - 35.7 g/dL [facility] RDW CV 19.8(H) 11.1 - 14.9 % [facility] RDW SD 65.3(H) 35.7 - 48.1 fL [facility] NRBC abs 0.00 0.00 - 0.01 K/cumm [facility] Blood 11/13/2024 9:44 PM CDT 11/13/2024 10:32 PM CDT Lee Elena MD LAB BLOOD ORDERABLES Krystyna l Result Performing Organization Address [facility]/ZIP Co de Phone Number [facility] Department [place] [address] * (ABNORMAL) Protime-INR (11/13/2024 9:44 PM CDT) [facility] PT 13.9(H) 9.7 - 13.0 sec INR 1.28(H) 0.90 - 1.20 [facility] Comment: Interpretive data Oral anticoagulant therapeutic ranges: Venous thromboembolism prophylaxis or treatment: 2.0-3.0 CARDIOLOGY Standard range: 2.0-3.0 High-intensity range: 2.5-3.5 Refer to indication-specific guidelines for appropriate target ranges for prosthetic heart valve replacement. Current interpretive data was last revised on 2019. Blood 11/13/2024 9:44 PM CDT 11/13/2024 10:44 PM CDT Lee Elena MD LAB BLOOD ORDERABLES Krystyna l Result Performing Organization Address City/[facility] Co de Phone Number [facility] [place] [address] * (ABNORMAL) Reticulocyte Count (11/13/2024 9:44 PM CDT) [facility] Retics, absolute 97(H) 20 - 87 K/cumm Retics 3.9(H) 0.4 - 2.9 % [facility] Reticulocyte Hgb 38.0 30.5 - 38.0 pg [facility] Blood 11/13/2024 9:44 PM CDT 11/13/2024 10:40 PM CDT Lee Elena MD LAB BLOOD ORDERABLES [place] [address] * Phosphorus (11/13/2024 9:44 PM CDT) [facility] Phosphorus, pl 2.5 2.3 - 4.5 mg/dL Blood 11/13/2024 9:44 PM CDT 11/13/2024 10:33 PM CDT Lee Elena MD LAB BLOOD ORDERABLES Krystyna l Result Performing Organization Address [facility] Co de Phone Number [facility] Department [place] [address] * Magnesium (11/13/2024 9:44 PM CDT) Magnesium 1.9 1.4 - 2.5 mg/dL Blood 11/13/2024 9:44 PM CDT 11/13/2024 10:33 PM CDT Result [facility] Lee Elena MD LAB BLOOD ORDERABLES Krystyna l Result Performing Organization Address [facility] de Phone Number [facility] Department [place] [address] * (ABNORMAL) Hepatic function panel (11/13/2024 9:44 PM CDT) Bilirubin, total 0.6 0.1 - 1.2 mg/dL Bilirubin, direct 0.4(H) 0.1 - 0.3 mg/dL [facility] Protein, pl 4.8(L) 6.5 - 8.5 g/dL [facility] Albumin 1.8(L) 3.5 - 5.0 g/dL [facility] Alk phos 173(H) 40 - 130 Units/L [facility] ALT 15 7 - 45 Units/L [facility] AST 49(H) 10 - 45 Units/L [facility] Blood 11/13/2024 9:44 PM CDT 11/13/2024 10:33 PM CDT Lee Elena MD LAB BLOOD ORDERABLES Krystyna l Result Performing Organization Address [facility] de Phone Number [facility] Department [place] [address] * (ABNORMAL) Basic metabolic panel (11/13/2024 9:44 PM CDT) [facility] Sodium 134(L) 135 - 145 mmol/L Potassium, pl 4.5 3.3 - 4.9 mmol/L [facility] Chloride 99 97 - 110 mmol/L [facility] CO2 27 22 - 32 mmol/L [facility] Anion gap 8 2 - 15 mmol/L [facility] BUN 5(L) 6 - 25 mg/dL [facility] Creatinine 0.41(L) 0.60 - 1.10 mg/dL [facility] Glucose 99 70 - 199 mg/dL [facility] Comment: Interpretive Data Fasting glucose >/= 126 mg/dl is diagnostic for diabetes. Fasting is defined as no caloric intake for at least 8 hours. Fasting glucose between 100 mg/dl to 125 mg/dl is diagnostic of prediabetes. In a patient with classic symptoms of hyperglycemia or hyperglycemic crisis, a random glucose >/= 200 mg/dl is diagnostic for diabetes. In the absence of unequivocal hyperglycemia, results should be confirmed by repeat testing. The classification and Diagnosis of Diabetes Diabetes Care 2021; 46: S19-S40. Current interpretive data was last revised 2022. Calcium 7.7(L) 8.5 - 10.3 mg/dL [facility] Blood 11/13/2024 9:44 PM CDT 11/13/2024 10:33 PM CDT us Lee Elena MD LAB BLOOD ORDERABLES Krystyna l Result [facility] Department [place] [address] * POCT glucose (11/13/2024 7:36 PM CDT) [facility] Glucose, POC 96 70 - 199 mg/dL Blood 11/13/2024 7:36 PM CDT 11/13/2024 7:36 PM CDT Lee Elena MD LAB POCT ORDERABLES - DEV ICE Final Result [facility] [place] [address] * POCT glucose (11/13/2024 5:07 PM CDT) Glucose, POC 94 70 - 199 mg/dL Blood 11/13/2024 5:07 PM CDT 11/13/2024 5:07 PM CDT Lee Elena MD LAB POCT ORDERABLES - DEV ICE Final Result Performing Organization Address [facility] Co de Phone Number SH[facility] [place] [address] * MRI Spine Thoracic and Lumbar W WO Contrast (11/13/2024 3:51 PM CDT) Anatomical Region Laterality Modality Spine N/A Magnetic Resonan ce 11/13/2024 4:54 PM CDT Impressions 11/13/2024 4:54 PM CDT 1. No evidence of thoracic or lumbar spine epidural abscess. No acute abnormality in the thoracic or lumbar spine. 2. Small to moderate bilateral pleural effusions with scattered pulmonary consolidations consistent with pneumonia. Dictated by: Humberto Leyva M.D. The radiology attending physician has personally reviewed this study, and had reviewed and/or edited this written report and agrees with it. Electronically signed by: Latrice Ellington M.D. Narrative 11/13/2024 4:54 PM CDT EXAMINATION: 1. Magnetic resonance imaging (MRI) of the thoracic spine without and with contrast 2. Magnetic resonance imaging (MRI) of the lumbar spine without and with contrast HISTORY: Concern for epidural abscess in the setting of MSSA bacteremia TECHNIQUE: Multiplanar multi-weighted MRI of the thoracic was performed without and with intravenous contrast using the standard protocol. Multiplanar multi-weighted MRI of the lumbar spine was performed without and with intravenous contrast using the standard protocol. Contrast information: 9.66 mL Gadoterate Meglumine IV COMPARISON: CT of the lumbar spine 06/10/[address] of the chest 11/01/2024 FINDINGS: THORACIC SPINE: The alignment of the thoracic spine is normal. T6 hemangioma is noted. There are no compression fractures. The spinal cord demonstrates normal signal intensity on all sequences. Intervertebral disks have normal height and signal intensity. Limited views of the chest demonstrate small to moderate size bilateral pleural effusions with associated lower lobe atelectasis as well as multifocal consolidations. The aorta is normal. There is no abnormal contrast enhancement. Up to mild facet arthropathy with no high grade spinal canal or neuroforaminal stenosis. LUMBAR SPINE: The alignment of the lumbar spine is normal. Vertebral bodies demonstrate normal signal intensity on all sequences. There are no compression fractures. The conus medullaris terminates at the level of L1-L2. The distal spinal cord signal intensity is normal. Intervertebral disks have normal height and signal intensity. There are no annular fissures identified. Limited views of the abdomen and pelvis demonstrate debris within the gallbladder. The aorta is normal. There is no abnormal contrast enhancement. Up to mild facet arthropathy with no high grade spinal canal or neuroforaminal stenosis. Procedure Note Latrice Ellington MD - 11/13/2024 EXAMINATION: 1. Magnetic resonance imaging (MRI) of the thoracic spine without and with contrast 2. Magnetic resonance imaging (MRI) of the lumbar spine without and with contrast HISTORY: Concern for epidural abscess in the setting of MSSA bacteremia TECHNIQUE: Multiplanar multi-weighted MRI of the thoracic was performed without and with intravenous contrast using the standard protocol. Multiplanar multi-weighted MRI of the lumbar spine was performed without and with intravenous contrast using the standard protocol. Contrast information: 9.66 mL Gadoterate Meglumine IV COMPARISON: CT of the lumbar spine 06/10/[address] of the chest 11/01/2024 FINDINGS: THORACIC SPINE: The alignment of the thoracic spine is normal. T6 hemangioma is noted. There are no compression fractures. The spinal cord demonstrates normal signal intensity on all sequences. Intervertebral disks have normal height and signal intensity. Limited views of the chest demonstrate small to moderate size bilateral pleural effusions with associated lower lobe atelectasis as well as multifocal consolidations. The aorta is normal. There is no abnormal contrast enhancement. Up to mild facet arthropathy with no high grade spinal canal or neuroforaminal stenosis. LUMBAR SPINE: The alignment of the lumbar spine is normal. Vertebral bodies demonstrate normal signal intensity on all sequences. There are no compression fractures. The conus medullaris terminates at the level of L1-L2. The distal spinal cord signal intensity is normal. Intervertebral disks have normal height and signal intensity. There are no annular fissures identified. Limited views of the abdomen and pelvis demonstrate debris within the gallbladder. The aorta is normal. There is no abnormal contrast enhancement. Up to mild facet arthropathy with no high grade spinal canal or neuroforaminal stenosis. IMPRESSION: 1. No evidence of thoracic or lumbar spine epidural abscess. No acute abnormality in the thoracic or lumbar spine. 2. Small to moderate bilateral pleural effusions with scattered pulmonary consolidations consistent with pneumonia. Dictated by: Humberto Leyva M.D. The radiology attending physician has personally reviewed this study, and had reviewed and/or edited this written report and agrees with it. Electronically signed by: Latrice Ellington M.D. us Lee Elena MD IMG MRI PROCEDURES Final Result * POCT glucose (11/13/2024 11:41 AM CDT) Glucose, POC 113 70 - 199 mg/dL Blood 11/13/2024 11:4 1 AM CDT 11/13/2024 11:41 AM CDT us Lee Elena MD LAB POCT ORDERABLES - DEV ICE Final Result [facility] Department [place] [address] * POCT glucose (11/13/2024 7:43 AM CDT) Glucose, POC 107 70 - 199 mg/dL Blood 11/13/2024 7:43 AM CDT 11/13/2024 7:43 AM CDT us Lee Elena MD LAB POCT ORDERABLES - DEV ICE Final Result Performing Organization Address [facility] Co de Phone Number [facility] [place] [address] * POCT glucose (11/13/2024 4:20 AM CDT) Glucose, POC 98 70 - 199 mg/dL Blood 11/13/2024 4:20 AM CDT 11/13/2024 4:20 AM CDT Lee Elena MD LAB POCT ORDERABLES - DEV ICE Final Result Performing Organization Address [facility] Co de Phone Number [facility] [place] [address] * POCT glucose (11/13/2024 1:03 AM CDT) Glucose, POC 104 70 - 199 mg/dL Blood 11/13/2024 1:03 AM CDT 11/13/2024 1:03 AM CDT Lee Elena MD LAB POCT ORDERABLES - DEV ICE Final Result Performing Organization Address [facility] Co de Phone Number [facility] [place] [address] * eGFR (11/12/2024 10:00 PM CDT) eGFR >90 >=60 mL/min/1. 73 m2 Comment: Interpretive Data Reference Interval Normal >/= 90 mL/min/1.73m2 Mildly decreased* 60 - 89 mL/min/1.73m2 Mildly to moderately decreased 45 - 59 mL/min/1.73m2 Moderately to severely decreased 30 - 44 mL/min/1.73m2 Severely decreased 15 - 29 mL/min/1.73m2 Kidney Failure < 15 mL/min/1.73m2 *Relative to young adult level Estimated glomerular filtration rate is determined by the 2020 CKD-EPI equation recommended by the National Kidney Foundation (A Unifying Approach to GFR Estimation: Recommendations of the NKF-ASK Task Force on Reassessing the Inclusion of Race in Diagnosing Kidney Disease, JASN 2020). The CKD-EPI equation should not be used for patients with unstable renal function and has not been validated in children and those over 70. Current interpretive data was last reviewed 2021. Blood 11/12/2024 10:0 0 PM CDT 11/13/2024 12:47 AM CDT us Lee Elena MD LAB BLOOD ORDERABLES Krystyna meyers Result [facility] [place] [address] * (ABNORMAL) Differential, auto (11/12/2024 10:00 PM CDT) Neutrophil abs 7.33(H) 1.50 - 6.50 K/cumm Imm gran abs 0.41(H) 0.00 - 0.10 K/cumm [facility] Lymphocyte abs 1.98 0.80 - 3.30 K/cumm [facility] Monocyte abs 0.73 0.20 - 0.80 K/cumm [facility] Eosinophil abs 0.16 0.00 - 0.50 K/cumm [facility] Basophil abs 0.04 0.00 - 0.10 K/cumm [facility] Neutrophil pct 68.8 % [facility] Comment: Interpretive Data Percent cell count reference ranges are not reported, since discordance with absolute values may lead to misinterpretation of CBC data. Current Interpretive Data was last revised on 2017. Imm gran pct 3.8 % [facility] Comment: Interpretive Data Percent cell count reference ranges are not reported, since discordance with absolute values may lead to misinterpretation of CBC data. Current Interpretive Data was last revised on 2017. Lymphocyte pct 18.6 % [facility] Comment: Interpretive Data Percent cell count reference ranges are not reported, since discordance with absolute values may lead to misinterpretation of CBC data. Current Interpretive Data was last revised on 2017. Monocyte pct 6.9 % [facility] Comment: Interpretive Data Percent cell count reference ranges are not reported, since discordance with absolute values may lead to misinterpretation of CBC data. Current Interpretive Data was last revised on 2017. Eosinophil pct 1.5 % [facility] Comment: Interpretive Data Percent cell count reference ranges are not reported, since discordance with absolute values may lead to misinterpretation of CBC data. Current Interpretive Data was last revised on 2017. Basophil pct 0.4 % [facility] Comment: Interpretive Data Percent cell count reference ranges are not reported, since discordance with absolute values may lead to misinterpretation of CBC data. Current Interpretive Data was last revised on 2017. Blood 11/12/2024 10:0 0 PM CDT 11/13/2024 12:47 AM CDT Lee Elena MD LAB BLOOD ORDERABLES Krystyna meyers Result [facility] [place] [address] * (ABNORMAL) CBC with auto differential (11/12/2024 10:00 PM CDT) WBC 10.65(H) 3.80 - 9.90 K/cumm Hgb 9.4(L) 11.9 - 15.5 g/dL [facility] Hct 27.1(L) 35.6 - 45.5 % [facility] Plt 241 150 - 400 K/cumm [facility] MPV 12.4(H) 9.1 - 12.3 fL [facility] RBC 2.85(L) 3.90 - 5.20 M/cumm [facility] MCV 95.1 81.3 - 96.4 fL [facility] MCH 33.0 27.1 - 33.3 pg [facility] MCHC 34.7 32.3 - 35.7 g/dL [facility] RDW CV 19.0(H) 11.1 - 14.9 % [facility] RDW SD 65.0(H) 35.7 - 48.1 fL [facility] NRBC abs 0.00 0.00 - 0.01 K/cumm [facility] Blood 11/12/2024 10:0 0 PM CDT 11/13/2024 12:47 AM CDT us Lee Elena MD LAB BLOOD ORDERABLES Krystyna meyers Result [facility] [place] [address] * (ABNORMAL) Blood culture Blood (11/12/2024 10:00 PM CDT) Direct Specimen Exam Stain: Gram Positive Cocci in clusters Time to culture positivity (aerobic media): 20.3 hours Time to culture positivity (anaerobic media): 3.3 days Report Final Report: Staphylococcus aureus For susceptibility results, refer to accession number [id number] on the blood culture from 11/09/2024 (.) [facility] Organism STAPHYLOCOCCUS AUREUS [facility] Blood 11/12/2024 10:0 0 PM CDT 11/13/2024 12:57 AM CDT Narrative [facility] - 11/19/2024 11:19 AM CDT Collection->Peripheral 1. Blood cultures are incubated for 4 days on a continuously monitored blood culture system. The first report of a negative culture is issued within 24 hours of receipt of the specimen in the laboratory. 2. Positive culture results are reported as soon as they are detected. 3. The most important factor for detection of microbes in the setting of bloodstream infection is the volume of blood submitted for culture. Failure to collect an optimal blood volume can result in false negative blood cultures. 4. For pediatric patients, the recommended blood volume to collect follows a weight based strategy. See the electronic test catalog for collection instructions. 5. For positive blood cultures, a rapid molecular test may be performed for organism identification using the sherri ePlex blood culture identification panel for gram positive (BCID-GP) and gram negative (BCID-GN) organisms. This nucleic acid amplification test detects microbial DNA in positive blood culture broth. This assay has been cleared by the [place] Food and Drug Administration and its performance characteristics have been verified by the [facility]. For questions about this culture, contact the Microbiology Laboratory at [phone]. Interpretive data was last revised on 24. Lee Elena MD LAB MICROBIOLOGY - GENERA L ORDERABLES Final Result Performing Organization Address [facility] de Phone Number [facility] [place] [address] * Protime-INR (11/12/2024 10:00 PM CDT) PT 12.9 9.7 - 13.0 sec INR 1.19 0.90 - 1.20 [facility] Comment: Interpretive data Oral anticoagulant therapeutic ranges: Venous thromboembolism prophylaxis or treatment: 2.0-3.0 CARDIOLOGY Standard range: 2.0-3.0 High-intensity range: 2.5-3.5 Refer to indication-specific guidelines for appropriate target ranges for prosthetic heart valve replacement. Current interpretive data was last revised on 2019. Blood 11/12/2024 10:0 0 PM CDT 11/13/2024 1:09 AM CDT Lee Elena MD LAB BLOOD ORDERABLES Krystyna l Result Performing Organization Address [facility] de Phone Number [facility] Department [place] [address] * Phosphorus (11/12/2024 10:00 PM CDT) Phosphorus, pl 2.8 2.3 - 4.5 mg/dL Blood 11/12/2024 10:0 0 PM CDT 11/13/2024 12:47 AM CDT Lee Elena MD LAB BLOOD ORDERABLES Krytsyna l Result Performing Organization Address City/[facility]/ZIP Co de Phone Number [facility] Department [place] [address] * Magnesium (11/12/2024 10:00 PM CDT) [facility] Magnesium 1.6 1.4 - 2.5 mg/dL Blood 11/12/2024 10:0 0 PM CDT 11/13/2024 12:47 AM CDT Lee Elena MD LAB BLOOD ORDERABLES Krystyna l Result Performing Organization Address [facility] Co de Phone Number [facility] [place] [address] * (ABNORMAL) Hepatic function panel (11/12/2024 10:00 PM CDT) [facility] Bilirubin, total 0.9 0.1 - 1.2 mg/dL Bilirubin, direct 0.6(H) 0.1 - 0.3 mg/dL [facility] Protein, pl 5.0(L) 6.5 - 8.5 g/dL [facility] Albumin 1.9(L) 3.5 - 5.0 g/dL [facility] Alk phos 180(H) 40 - 130 Units/L [facility] ALT 23 7 - 45 Units/L [facility] AST 57(H) 10 - 45 Units/L [facility] Blood 11/12/2024 10:0 0 PM CDT 11/13/2024 12:47 AM CDT Lee Elena MD LAB BLOOD ORDERABLES Krystyna l Result Performing Organization Address [facility] Co de Phone Number [facility] [place] [address] * (ABNORMAL) Basic metabolic panel (11/12/2024 10:00 PM CDT) [facility] Sodium 135 135 - 145 mmol/L Potassium, pl 3.2(L) 3.3 - 4.9 mmol/L [facility] Chloride 98 97 - 110 mmol/L [facility] CO2 30 22 - 32 mmol/L [facility] Anion gap 7 2 - 15 mmol/L [facility] BUN 6 6 - 25 mg/dL [facility] Creatinine 0.43(L) 0.60 - 1.10 mg/dL [facility] Glucose 84 70 - 199 mg/dL [facility] Comment: Interpretive Data Fasting glucose >/= 126 mg/dl is diagnostic for diabetes. Fasting is defined as no caloric intake for at least 8 hours. Fasting glucose between 100 mg/dl to 125 mg/dl is diagnostic of prediabetes. In a patient with classic symptoms of hyperglycemia or hyperglycemic crisis, a random glucose >/= 200 mg/dl is diagnostic for diabetes. In the absence of unequivocal hyperglycemia, results should be confirmed by repeat testing. The classification and Diagnosis of Diabetes Diabetes Care 2021; 46: S19-S40. Current interpretive data was last revised 2022. Calcium 8.1(L) 8.5 - 10.3 mg/dL [facility] Blood 11/12/2024 10:0 0 PM CDT 11/13/2024 12:47 AM CDT us Lee Elena MD LAB BLOOD ORDERABLES Krystyna meyers Result [facility] [place] [address] * ECG 12 lead (11/12/2024 9:35 PM CDT) Ventricular Rate EKG/Min 93 BPM [facility] Atrial Rate 93 BPM [facility] AR-Interval (MSEC) 110 ms [facility] QRS-Interval (MSEC) 70 ms [facility] QT-Interval (MSEC) 396 ms [facility] QTc 492 ms [facility] P Victoria 28 degrees [facility] R [place] 51 degrees [facility] T [place] 163 degrees [facility] Diagnosis Sinus rhythm with short AR Low voltage QRS Possible Anterolateral infarct , age undetermined Abnormal ECG When compared with ECG of 09-NOV-2024 01:56, Significant changes have occurred Confirmed by Gustabo Mcdaniels MD ([id number]) on 11/14/2024 1:25:[address] [facility] 11/12/2024 9:35 PM CDT 11/14/2024 1:25 PM CDT Lee Elena MD ECG ORDERABLES Final Res ult Performing Organization Address [facility] de Phone Number [facility] * POCT glucose (11/12/2024 8:23 PM CDT) Glucose, POC 109 70 - 199 mg/dL Blood 11/12/2024 8:23 PM CDT 11/12/2024 8:23 PM CDT Lee Elena MD LAB POCT ORDERABLES - DEV ICE Final Result Performing Organization Address [facility] de Phone Number [facility] Department [place] [address] * POCT glucose (11/12/2024 4:17 PM CDT) Glucose, POC 132 70 - 199 mg/dL Blood 11/12/2024 4:17 PM CDT 11/12/2024 4:17 PM CDT Lee Elena MD LAB POCT ORDERABLES - DEV ICE Final Result Performing Organization Address [facility] de Phone Number [facility] [place] [address] * MRSA Only (Staphylococcus aureus) Culture Nasal (11/12/2024 2:37 PM CDT) Report Final Report: Negative Nasal 11/12/2024 2:37 PM CDT 11/12/2024 3:35 PM CDT Narrative [facility] - 11/13/2024 6:40 PM CDT Testing performed by [facility] ([phone]). us Lee Elena MD LAB MICROBIOLOGY - GENERA L ORDERABLES Final Result [facility] [place] [address] * Respiratory pathogen panel Nasopharyngeal (11/12/2024 2:37 PM CDT) Pathologist [facility] Influenza A RNA Not Detected Not Detected Influenza B RNA Not Detected Not Detected [facility] RSV RNA Not Detected Not Detected [facility] COVID-19 RNA Not Detected Not Detected [facility] Coronavirus 229E RNA Not Detected Not Detected [facility] Coronavirus HKU1 RNA Not Detected Not Detected [facility] Coronavirus NL63 RNA Not Detected Not Detected [facility] Coronavirus OC43 RNA Not Detected Not Detected [facility] Adenovirus DNA Not Detected Not Detected [facility] Metapneumovirus RNA Not Detected Not Detected [facility] Rhinovirus/Enterov irus RNA Not Detected Not Detected [facility] Parainfluenza 1 RNA Not Detected Not Detected [facility] Parainfluenza 2 RNA Not Detected Not Detected [facility] Parainfluenza 3 RNA Not Detected Not Detected [facility] Parainfluenza 4 RNA Not Detected Not Detected [facility] B. pertussis DNA Not Detected Not Detected [facility] B. parapertussis DNA Not Detected Not Detected [facility] C. pneumoniae DNA Not Detected Not Detected [facility] M. pneumoniae DNA Not Detected Not Detected [facility] Nasopharyngeal 11/12/2024 2: 37 PM CDT 11/12/2024 3:27 PM CDT Narrative [facility] - 11/12/2024 4:42 PM CDT Is the Patient experiencing symptoms consistent with COVID?->No Surveillance testing for transplant patient?->No Interpretive Data The SADAR 3D FilmArray Respiratory Panel (RP2.1) assay is a multiplexed real-time PCR based nucleic acid test capable of simultaneous qualitative detection and identification of multiple respiratory viral and bacterial nucleic acids, including SARS Coronavirus 2 (the causative agent of COVID-19). The following bacteria, viruses and virus subtypes can be identified using the FilmArray RP2.1 assay: Bordetella pertussis, Bordetella parapertussis, Chlamydia pneumoniae, Mycoplasma pneumoniae, Adenovirus, SARS Coronavirus 2, seasonal coronaviruses (Coronavirus HKU1, Coronavirus NL63, Coronavirus 229E, and Coronavirus OC43), Influenza A, Influenza A subtype H1, Influenza A subtype H3, Influenza A subtype 2009 H1, Influenza B, Metapneumovirus, Parainfluenza 1, Parainfluenza 2, Parainfluenza 3, Parainfluenza 4, RSV, Rhinovirus/Enterovirus. Due to the genetic similarity between human Rhinovirus and Enterovirus, the FilmArray RP2.1 assay cannot reliably differentiate them. Coronavirus OC43 may cross-react with some isolates of Coronavirus HKU1. A dual positive result may be due to cross-reactivity or may indicate a co- infection. The detection and identification of specific viral and bacterial nucleic acids from individuals exhibiting signs and symptoms of a respiratory infection aids in the diagnosis of respiratory infection if used in conjunction with other clinical and epidemiological information. The results of this test should not be used as the sole basis for diagnosis, treatment, or other management decisions. Negative results in the setting of a respiratory illness may be due to infection with pathogens that are not detected by this test. Positive results do not rule out infection/co-infection with other organisms. The agent(s) detected by the FilmArray RP2.1 may not be the definite cause of disease. Additional testing (lab, imaging, etc.) may be necessary when evaluating a patient with possible respiratory tract infection. The FilmArray RP2.1 assay has FDA clearance for testing of [facility] swabs. The performance of additional specimen types has been assessed by the performing laboratory. The performance characteristics of this assay have been determined by [facility] Molecular Infectious Disease Laboratory. Current interpretive data was last revised on 22. Lee Elena MD LAB MICROBIOLOGY - GENERA L ORDERABLES Final Result [facility] [place] [address] * POCT glucose (11/12/2024 11:33 AM CDT) Glucose, POC 113 70 - 199 mg/dL Blood 11/12/2024 11:3 3 AM CDT 11/12/2024 11:33 AM CDT us Lee Elena MD LAB POCT ORDERABLES - DEV ICE Final Result Performing Organization Address City/State/[facility] Co de Phone Number [facility] [place] [address] * XR Chest 1 View (11/12/2024 11:33 AM CDT) Anatomical Region Laterality Modality Body, Chest N/A Computed Radiogr aphy 11/12/2024 11:3 8 AM CDT Impressions 11/12/2024 12:02 PM CDT Comparison radiograph dated 11/09/2024. Increased linear and rounded airspace opacities in the bilateral lung bases, compatible with evolving multifocal pneumonia with superimposed atelectasis. Small right pleural effusion. No pneumothorax. Stable cardiomediastinal silhouette. Dictated by: Sarah Ag MD The radiology attending physician has personally reviewed this study, and had reviewed and/or edited this written report and agrees with it. Electronically signed by: Fabian Sesay M.D. Narrative 11/12/2024 12:02 PM CDT EXAMINATION: 1 view chest radiograph Procedure Note Fabian Sesay MD - 11/12/2024 EXAMINATION: 1 view chest radiograph IMPRESSION: Comparison radiograph dated 11/09/2024. Increased linear and rounded airspace opacities in the bilateral lung bases, compatible with evolving multifocal pneumonia with superimposed atelectasis. Small right pleural effusion. No pneumothorax. Stable cardiomediastinal silhouette. Dictated by: Sarah Ag MD The radiology attending physician has personally reviewed this study, and had reviewed and/or edited this written report and agrees with it. Electronically signed by: Fabian S. Glazer, M.D. Lee Elena MD IMG XR PROCEDURES Final R esult * XR Orthopantogram Panorex (11/12/2024 11:32 AM CDT) Anatomical Region Laterality Modality Head and Neck N/A Panoramic X-Ray 11/12/2024 2:10 PM CDT Impressions 11/12/2024 2:10 PM CDT Multiple dental extractions without large dental caries or periapical lucencies. Dictated by: James Lehman MD The radiology attending physician has personally reviewed this study, and had reviewed and/or edited this written report and agrees with it. Electronically signed by: Ochoa Liriano D.O. Narrative 11/12/2024 2:10 PM CDT EXAMINATION: XR ORTHOPANTOGRAM/PANOREX HISTORY: Poor dentition with emesis COMPARISON: None FINDINGS: A single panoramic radiograph which is submitted. There has been extraction of the right maxillary 2nd molar, the left mandibular 1st molar, and the right mandibular 3rd molar. There are no large dental caries or periapical lucencies. Nasal and lingual augmentation is present. Procedure Note Abel Lirianoton Sarah, DO - 11/12/2024 EXAMINATION: XR ORTHOPANTOGRAM/PANOREX HISTORY: Poor dentition with emesis COMPARISON: None FINDINGS: A single panoramic radiograph which is submitted. There has been extraction of the right maxillary 2nd molar, the left mandibular 1st molar, and the right mandibular 3rd molar. There are no large dental caries or periapical lucencies. Nasal and lingual augmentation is present. IMPRESSION: Multiple dental extractions without large dental caries or periapical lucencies. Dictated by: James Lehman MD The radiology attending physician has personally reviewed this study, and had reviewed and/or edited this written report and agrees with it. Electronically signed by: Ochoa Liriano D.O. Lee Elena MD IMG XR PROCEDURES Final R esult * POCT glucose (11/12/2024 7:57 AM CDT) Glucose, POC 93 70 - 199 mg/dL Blood 11/12/2024 7:57 AM CDT 11/12/2024 7:57 AM CDT Lee Elena MD LAB POCT ORDERABLES - DEV ICE Final Result Performing Organization Address [facility] de Phone Number [place] [address] * POCT glucose (11/12/2024 4:06 AM CDT) Glucose, POC 113 70 - 199 mg/dL Blood 11/12/2024 4:06 AM CDT 11/12/2024 4:06 AM CDT Lee Elena MD LAB POCT ORDERABLES - DEV ICE Final Result Performing Organization Address [facility] de Phone Number [facility] [place] [address] * POCT glucose (11/12/2024 12:16 AM CDT) Glucose, POC 110 70 - 199 mg/dL Blood 11/12/2024 12:1 6 AM CDT 11/12/2024 12:16 AM CDT Lee Elena MD LAB POCT ORDERABLES - DEV ICE Final Result Performing Organization Address [facility] [place] [address] * eGFR (11/11/2024 10:12 PM CDT) eGFR >90 >=60 mL/min/1. 73 m2 Comment: Interpretive Data Reference Interval Normal >/= 90 mL/min/1.73m2 Mildly decreased* 60 - 89 mL/min/1.73m2 Mildly to moderately decreased 45 - 59 mL/min/1.73m2 Moderately to severely decreased 30 - 44 mL/min/1.73m2 Severely decreased 15 - 29 mL/min/1.73m2 Kidney Failure < 15 mL/min/1.73m2 *Relative to young adult level Estimated glomerular filtration rate is determined by the 2020 CKD-EPI equation recommended by the National Kidney Foundation (A Unifying Approach to GFR Estimation: Recommendations of the NKF-ASK Task Force on Reassessing the Inclusion of Race in Diagnosing Kidney Disease, JASN 202). The CKD-EPI equation should not be used for patients with unstable renal function and has not been validated in children and those over 70. Current interpretive data was last reviewed 2021. Blood 11/11/2024 10:1 2 PM CDT 11/11/2024 11:52 PM CDT us Lee Elena MD LAB BLOOD ORDERABLES Krystyna meyers Result [facility] [place] [address] * (ABNORMAL) Differential, auto (11/11/2024 10:12 PM CDT) Neutrophil abs 9.51(H) 1.50 - 6.50 K/cumm Imm gran abs 0.27(H) 0.00 - 0.10 K/cumm [facility] Lymphocyte abs 2.15 0.80 - 3.30 K/cumm [facility] Monocyte abs 1.16(H) 0.20 - 0.80 K/cumm [facility] Eosinophil abs 0.10 0.00 - 0.50 K/cumm [facility] Basophil abs 0.06 0.00 - 0.10 K/cumm [facility] Neutrophil pct 71.7 % [facility] Comment: Interpretive Data Percent cell count reference ranges are not reported, since discordance with absolute values may lead to misinterpretation of CBC data. Current Interpretive Data was last revised on 2017. Imm gran pct 2.0 % [facility] Comment: Interpretive Data Percent cell count reference ranges are not reported, since discordance with absolute values may lead to misinterpretation of CBC data. Current Interpretive Data was last revised on 2017. Lymphocyte pct 16.2 % [facility] Comment: Interpretive Data Percent cell count reference ranges are not reported, since discordance with absolute values may lead to misinterpretation of CBC data. Current Interpretive Data was last revised on 2017. Monocyte pct 8.8 % [facility] Comment: Interpretive Data Percent cell count reference ranges are not reported, since discordance with absolute values may lead to misinterpretation of CBC data. Current Interpretive Data was last revised on 2017. Eosinophil pct 0.8 % [facility] Comment: Interpretive Data Percent cell count reference ranges are not reported, since discordance with absolute values may lead to misinterpretation of CBC data. Current Interpretive Data was last revised on 2017. Basophil pct 0.5 % [facility] Comment: Interpretive Data Percent cell count reference ranges are not reported, since discordance with absolute values may lead to misinterpretation of CBC data. Current Interpretive Data was last revised on 2017. Blood 11/11/2024 10:1 2 PM CDT 11/11/2024 11:52 PM CDT us Lee Elena MD LAB BLOOD ORDERABLES Krystyna meyers Result [facility] [place] [address] * (ABNORMAL) CBC with auto differential (11/11/2024 10:12 PM CDT) WBC 13.25(H) 3.80 - 9.90 K/cumm Hgb 10.3(L) 11.9 - 15.5 g/dL [facility] Hct 29.0(L) 35.6 - 45.5 % [facility] Plt 162 150 - 400 K/cumm [facility] MPV 12.7(H) 9.1 - 12.3 fL [facility] RBC 3.10(L) 3.90 - 5.20 M/cumm [facility] MCV 93.5 81.3 - 96.4 fL [facility] MCH 33.2 27.1 - 33.3 pg [facility] MCHC 35.5 32.3 - 35.7 g/dL [facility] RDW CV 19.4(H) 11.1 - 14.9 % [facility] RDW SD 65.6(H) 35.7 - 48.1 fL [facility] NRBC abs 0.02(H) 0.00 - 0.01 K/cumm [facility] Blood 11/11/2024 10:1 2 PM CDT 11/11/2024 11:52 PM CDT us Lee Elena MD LAB BLOOD ORDERABLES Krystyna meyers Result [facility] [place] [address] * (ABNORMAL) Blood culture Blood (11/11/2024 10:12 PM CDT) Direct Specimen Exam Stain: Gram Positive Cocci in clusters Time to culture positivity (aerobic media): 13.7 hours Time to culture positivity (anaerobic media): 21.0 hours Report Final Report: Staphylococcus aureus For susceptibility results, refer to accession number [id number] on the blood culture from 11/09/2024 (.) [facility] Organism STAPHYLOCOCCUS AUREUS [facility] Blood 11/11/2024 10:1 2 PM CDT 11/11/2024 11:40 PM CDT Narrative [facility] - 11/15/2024 10:39 AM CDT From a different site than #1. Collection->Peripheral 1. Blood cultures are incubated for 4 days on a continuously monitored blood culture system. The first report of a negative culture is issued within 24 hours of receipt of the specimen in the laboratory. 2. Positive culture results are reported as soon as they are detected. 3. The most important factor for detection of microbes in the setting of bloodstream infection is the volume of blood submitted for culture. Failure to collect an optimal blood volume can result in false negative blood cultures. 4. For pediatric patients, the recommended blood volume to collect follows a weight based strategy. See the electronic test catalog for collection instructions. 5. For positive blood cultures, a rapid molecular test may be performed for organism identification using the sherri ePlex blood culture identification panel for gram positive (BCID-GP) and gram negative (BCID-GN) organisms. This nucleic acid amplification test detects microbial DNA in positive blood culture broth. This assay has been cleared by the [place] Food and Drug Administration and its performance characteristics have been verified by the [facility]. For questions about this culture, contact the Microbiology Laboratory at [phone]. Interpretive data was last revised on 24. us Lee Elena MD LAB MICROBIOLOGY - GENERA L ORDERABLES Final Result [facility] [place] [address] * (ABNORMAL) Blood culture Blood (11/11/2024 10:12 PM CDT) Direct Specimen Exam Stain: Gram Positive Cocci in clusters Time to culture positivity (aerobic media): 17.0 hours Time to culture positivity (anaerobic media): 21.2 hours Report Final Report: Staphylococcus aureus For susceptibility results, refer to accession number [id number] on the blood culture from 11/09/2024 (.) [facility] Organism STAPHYLOCOCCUS AUREUS [facility] Blood 11/11/2024 10:1 2 PM CDT 11/11/2024 11:40 PM CDT [facility]ative [facility] - 11/15/2024 10:23 AM CDT Collection->Peripheral 1. Blood cultures are incubated for 4 days on a continuously monitored blood culture system. The first report of a negative culture is issued within 24 hours of receipt of the specimen in the laboratory. 2. Positive culture results are reported as soon as they are detected. 3. The most important factor for detection of microbes in the setting of bloodstream infection is the volume of blood submitted for culture. Failure to collect an optimal blood volume can result in false negative blood cultures. 4. For pediatric patients, the recommended blood volume to collect follows a weight based strategy. See the electronic test catalog for collection instructions. 5. For positive blood cultures, a rapid molecular test may be performed for organism identification using the sherri ePlex blood culture identification panel for gram positive (BCID-GP) and gram negative (BCID-GN) organisms. This nucleic acid amplification test detects microbial DNA in positive blood culture broth. This assay has been cleared by the [place] Food and Drug Administration and its performance characteristics have been verified by the [facility]. For questions about this culture, contact the Microbiology Laboratory at [phone]. Interpretive data was last revised on 24. Lee Elena MD LAB MICROBIOLOGY - GENERA L ORDERABLES Final Result Performing Organization Address [facility] Co de Phone Number [facility] [place] [address] * Protime-INR (11/11/2024 10:12 PM CDT) PT 12.3 9.7 - 13.0 sec INR 1.14 0.90 - 1.20 [facility] Comment: Interpretive data Oral anticoagulant therapeutic ranges: Venous thromboembolism prophylaxis or treatment: 2.0-3.0 CARDIOLOGY Standard range: 2.0-3.0 High-intensity range: 2.5-3.5 Refer to indication-specific guidelines for appropriate target ranges for prosthetic heart valve replacement. Current interpretive data was last revised on 2019. Blood 11/11/2024 10:1 2 PM CDT 11/11/2024 11:56 PM CDT Lee Elena MD LAB BLOOD ORDERABLES Krystyna l Result Performing Organization Address [facility] Co de Phone Number [facility] Department [place], [place] [id number] * (ABNORMAL) Phosphorus (11/11/2024 10:12 PM CDT) Phosphorus, pl 1.9(L) 2.3 - 4.5 mg/dL Blood 11/11/2024 10:1 2 PM CDT 11/11/2024 11:52 PM CDT Lee Elena MD LAB BLOOD ORDERABLES Krystyna l Result [facility] [place] [address] * Magnesium (11/11/2024 10:12 PM CDT) Pathologist [facility] Magnesium 1.7 1.4 - 2.5 mg/dL Blood 11/11/2024 10:1 2 PM CDT 11/11/2024 11:52 PM CDT Result [facility] Lee Elena MD LAB BLOOD ORDERABLES Krystyna l Result Performing Organization Address [facility] Co de Phone Number [facility] [place] [address] * (ABNORMAL) Hepatic function panel (11/11/2024 10:12 PM CDT) Bilirubin, total 1.2 0.1 - 1.2 mg/dL Bilirubin, direct 0.6(H) 0.1 - 0.3 mg/dL [facility] Protein, pl 5.1(L) 6.5 - 8.5 g/dL [facility] Albumin 1.9(L) 3.5 - 5.0 g/dL [facility] Alk phos 200(H) 40 - 130 Units/L [facility] ALT 34 7 - 45 Units/L [facility] AST 70(H) 10 - 45 Units/L [facility] Blood 11/11/2024 10:1 2 PM CDT 11/11/2024 11:52 PM CDT Result [facility] Lee Elena MD LAB BLOOD ORDERABLES Krystyna l Result Performing Organization Address City/[facility]/ZIP Co de Phone Number [facility] [place] [address] * (ABNORMAL) Basic metabolic panel (11/11/2024 10:12 PM CDT) Sodium 131(L) 135 - 145 mmol/L Potassium, pl 4.9 3.3 - 4.9 mmol/L [facility] Chloride 98 97 - 110 mmol/L [facility] CO2 23 22 - 32 mmol/L [facility] Anion gap 10 2 - 15 mmol/L [facility] BUN 6 6 - 25 mg/dL [facility] Creatinine 0.41(L) 0.60 - 1.10 mg/dL [facility] Glucose 78 70 - 199 mg/dL [facility] Comment: Interpretive Data Fasting glucose >/= 126 mg/dl is diagnostic for diabetes. Fasting is defined as no caloric intake for at least 8 hours. Fasting glucose between 100 mg/dl to 125 mg/dl is diagnostic of prediabetes. In a patient with classic symptoms of hyperglycemia or hyperglycemic crisis, a random glucose >/= 200 mg/dl is diagnostic for diabetes. In the absence of unequivocal hyperglycemia, results should be confirmed by repeat testing. The classification and Diagnosis of Diabetes Diabetes Care 2021; 46: S19-S40. Current interpretive data was last revised 2022. Calcium 7.8(L) 8.5 - 10.3 mg/dL [facility] Blood 11/11/2024 10:1 2 PM CDT 11/11/2024 11:52 PM CDT Lee Elena MD LAB BLOOD ORDERABLES Krystyna l Result [facility] [place] [address] * POCT glucose (11/11/2024 8:08 PM CDT) Glucose, POC 111 70 - 199 mg/dL Blood 11/11/2024 8:08 PM CDT 11/11/2024 8:08 PM CDT Lee Elena MD LAB POCT ORDERABLES - DEV ICE Final Result Performing Organization Address City/[facility] Co de Phone Number [facility] [place] [address] * POCT glucose (11/11/2024 4:42 PM CDT) Glucose, POC 108 70 - 199 mg/dL Blood 11/11/2024 4:42 PM CDT 11/11/2024 4:42 PM CDT Lee Elena MD LAB POCT ORDERABLES - DEV ICE Final Result Performing Organization Address [facility] Co de Phone Number [facility] [place] [address] * POCT glucose (11/11/2024 12:11 PM CDT) Pathologist [facility] Glucose, POC 115 70 - 199 mg/dL Blood 11/11/2024 12:1 1 PM CDT 11/11/2024 12:11 PM CDT us Lee Elena MD LAB POCT ORDERABLES - DEV ICE Final Result Performing Organization Address [facility] Co de Phone Number [facility] Department [place] [address] * eGFR (11/11/2024 10:41 AM CDT) eGFR >90 >=60 mL/min/1. 73 m2 Comment: Interpretive Data Reference Interval Normal >/= 90 mL/min/1.73m2 Mildly decreased* 60 - 89 mL/min/1.73m2 Mildly to moderately decreased 45 - 59 mL/min/1.73m2 Moderately to severely decreased 30 - 44 mL/min/1.73m2 Severely decreased 15 - 29 mL/min/1.73m2 Kidney Failure < 15 mL/min/1.73m2 *Relative to young adult level Estimated glomerular filtration rate is determined by the 2020 CKD-EPI equation recommended by the National Kidney Foundation (A Unifying Approach to GFR Estimation: Recommendations of the NKF-ASK Task Force on Reassessing the Inclusion of Race in Diagnosing Kidney Disease, JASN 2020). The CKD-EPI equation should not be used for patients with unstable renal function and has not been validated in children and those over 70. Current interpretive data was last reviewed 2021. Blood 11/11/2024 10:4 1 AM CDT 11/11/2024 10:53 AM CDT Lee Elena MD LAB BLOOD ORDERABLES Krystyna l Result Performing Organization Address City/[facility]/ZIP Co de Phone Number [facility] [place] [address] * Phosphorus (11/11/2024 10:41 AM CDT) Phosphorus, pl 2.3 2.3 - 4.5 mg/dL Blood 11/11/2024 10:4 1 AM CDT 11/11/2024 10:53 AM CDT Lee Elena MD LAB BLOOD ORDERABLES Krystyna l Result Performing Organization Address [facility] Co de Phone Number [facility] [place] [address] * Magnesium (11/11/2024 10:41 AM CDT) Magnesium 1.6 1.4 - 2.5 mg/dL Blood 11/11/2024 10:4 1 AM CDT 11/11/2024 10:53 AM CDT Lee Elena MD LAB BLOOD ORDERABLES Krystyna l Result Performing Organization Address City/[facility] Co de Phone Number [facility] Department [place] [address] * (ABNORMAL) Basic metabolic panel (11/11/2024 10:41 AM CDT) Sodium 133(L) 135 - 145 mmol/L Potassium, pl 5.4(H) 3.3 - 4.9 mmol/L [facility] Comment:Hemolyzed; Potassium value may be falsely elevated by as much as 0.3-0.5 mmol/L. Suggest redraw and reanalysis. Chloride 104 97 - 110 mmol/L [facility] CO2 23 22 - 32 mmol/L [facility] Anion gap 6 2 - 15 mmol/L [facility] BUN 6 6 - 25 mg/dL [facility] Creatinine 0.37(L) 0.60 - 1.10 mg/dL [facility] Glucose 96 70 - 199 mg/dL [facility] Comment: Interpretive Data Fasting glucose >/= 126 mg/dl is diagnostic for diabetes. Fasting is defined as no caloric intake for at least 8 hours. Fasting glucose between 100 mg/dl to 125 mg/dl is diagnostic of prediabetes. In a patient with classic symptoms of hyperglycemia or hyperglycemic crisis, a random glucose >/= 200 mg/dl is diagnostic for diabetes. In the absence of unequivocal hyperglycemia, results should be confirmed by repeat testing. The classification and Diagnosis of Diabetes Diabetes Care 2021; 46: S19-S40. Current interpretive data was last revised 2022. Calcium 7.7(L) 8.5 - 10.3 mg/dL [facility] Blood 11/11/2024 10:4 1 AM CDT 11/11/2024 10:53 AM CDT us Lee Elena MD LAB BLOOD ORDERABLES Krystyna l Result [facility] Department [place] [address] * POCT glucose (11/11/2024 9:24 AM CDT) Glucose, POC 98 70 - 199 mg/dL Blood 11/11/2024 9:24 AM CDT 11/11/2024 9:24 AM CDT Lee Elena MD LAB POCT ORDERABLES - DEV ICE Final Result [facility] [place] [address] * POCT glucose (11/10/2024 11:50 PM CDT) Glucose, POC 124 70 - 199 mg/dL Blood 11/10/2024 11:5 0 PM CDT 11/10/2024 11:50 PM CDT Lee Elena MD LAB POCT ORDERABLES - DEV ICE Final Result Performing Organization Address [facility] Co de Phone Number [facility] [place] [address] * eGFR (11/10/2024 9:24 PM CDT) eGFR >90 >=60 mL/min/1. 73 m2 Comment: Interpretive Data Reference Interval Normal >/= 90 mL/min/1.73m2 Mildly decreased* 60 - 89 mL/min/1.73m2 Mildly to moderately decreased 45 - 59 mL/min/1.73m2 Moderately to severely decreased 30 - 44 mL/min/1.73m2 Severely decreased 15 - 29 mL/min/1.73m2 Kidney Failure < 15 mL/min/1.73m2 *Relative to young adult level Estimated glomerular filtration rate is determined by the 2020 CKD-EPI equation recommended by the National Kidney Foundation (A Unifying Approach to GFR Estimation: Recommendations of the NKF-ASK Task Force on Reassessing the Inclusion of Race in Diagnosing Kidney Disease, JASN 2020). The CKD-EPI equation should not be used for patients with unstable renal function and has not been validated in children and those over 70. Current interpretive data was last reviewed 2021. Blood 11/10/2024 9:24 PM CDT 11/10/2024 11:00 PM CDT us Lee Elena MD LAB BLOOD ORDERABLES Krystyna meyers Result [facility] [place] [address] * (ABNORMAL) Differential, auto (11/10/2024 9:24 PM CDT) Neutrophil abs 9.18(H) 1.50 - 6.50 K/cumm Imm gran abs 0.15(H) 0.00 - 0.10 K/cumm [facility] Lymphocyte abs 1.01 0.80 - 3.30 K/cumm [facility] Monocyte abs 0.84(H) 0.20 - 0.80 K/cumm [facility] Eosinophil abs 0.03 0.00 - 0.50 K/cumm [facility] Basophil abs 0.02 0.00 - 0.10 K/cumm [facility] Neutrophil pct 81.7 % [facility] Comment: Interpretive Data Percent cell count reference ranges are not reported, since discordance with absolute values may lead to misinterpretation of CBC data. Current Interpretive Data was last revised on 2017. Imm gran pct 1.3 % [facility] Comment: Interpretive Data Percent cell count reference ranges are not reported, since discordance with absolute values may lead to misinterpretation of CBC data. Current Interpretive Data was last revised on 2017. Lymphocyte pct 9.0 % [facility] Comment: Interpretive Data Percent cell count reference ranges are not reported, since discordance with absolute values may lead to misinterpretation of CBC data. Current Interpretive Data was last revised on 2017. Monocyte pct 7.5 % [facility] Comment: Interpretive Data Percent cell count reference ranges are not reported, since discordance with absolute values may lead to misinterpretation of CBC data. Current Interpretive Data was last revised on 2017. Eosinophil pct 0.3 % [facility] Comment: Interpretive Data Percent cell count reference ranges are not reported, since discordance with absolute values may lead to misinterpretation of CBC data. Current Interpretive Data was last revised on 2017. Basophil pct 0.2 % [facility] Comment: Interpretive Data Percent cell count reference ranges are not reported, since discordance with absolute values may lead to misinterpretation of CBC data. Current Interpretive Data was last revised on 2017. Blood 11/10/2024 9:24 PM CDT 11/10/2024 11:00 PM CDT Lee Elena MD LAB BLOOD ORDERABLES Krystyna l Result Performing Organization Address City/[facility] Co de Phone Number [facility] [place] [address] * (ABNORMAL) CBC with auto differential (11/10/2024 9:24 PM CDT) Pathologist [facility] WBC 11.23(H) 3.80 - 9.90 K/cumm Hgb 10.0(L) 11.9 - 15.5 g/dL [facility] Hct 29.3(L) 35.6 - 45.5 % [facility] Plt 129(L) 150 - 400 K/cumm [facility] Comment:No clot detected in sample. MPV 12.1 9.1 - 12.3 fL [facility] RBC 3.09(L) 3.90 - 5.20 M/cumm [facility] MCV 94.8 81.3 - 96.4 fL [facility] Comment:MCV delta due to [place] arent blood transfusion. MCH 32.4 27.1 - 33.3 pg [facility] MCHC 34.1 32.3 - 35.7 g/dL [facility] RDW CV 19.7(H) 11.1 - 14.9 % [facility] RDW SD 67.2(H) 35.7 - 48.1 fL [facility] NRBC abs 0.00 0.00 - 0.01 K/cumm [facility] Blood 11/10/2024 9:24 PM CDT 11/10/2024 11:00 PM CDT Lee Elena MD LAB BLOOD ORDERABLES Krystyna l Result Performing Organization Address [facility] [place] [address] * Protime-INR (11/10/2024 9:24 PM CDT) Pathologist [facility] PT 12.6 9.7 - 13.0 sec INR 1.16 0.90 - 1.20 [facility] Comment: Interpretive data Oral anticoagulant therapeutic ranges: Venous thromboembolism prophylaxis or treatment: 2.0-3.0 CARDIOLOGY Standard range: 2.0-3.0 High-intensity range: 2.5-3.5 Refer to indication-specific guidelines for appropriate target ranges for prosthetic heart valve replacement. Current interpretive data was last revised on 2019. Blood 11/10/2024 9:24 PM CDT 11/10/2024 11:05 PM CDT Lee Elena MD LAB BLOOD ORDERABLES Krystyna l Result Performing Organization Address [facility] de Phone Number [facility] [place] [address] * (ABNORMAL) Phosphorus (11/10/2024 9:24 PM CDT) [facility] Phosphorus, pl 2.1(L) 2.3 - 4.5 mg/dL Blood 11/10/2024 9:24 PM CDT 11/10/2024 11:00 PM CDT Lee Elena MD LAB BLOOD ORDERABLES Krystyna l Result Performing Organization Address [facility] [place] [address] * (ABNORMAL) Magnesium (11/10/2024 9:24 PM CDT) [facility] Magnesium 2.8(H) 1.4 - 2.5 mg/dL Blood 11/10/2024 9:24 PM CDT 11/10/2024 11:00 PM CDT Lee Elena MD LAB BLOOD ORDERABLES Krystyna l Result Performing Organization Address [facility] Co de Phone Number [facility] [place] [address] * (ABNORMAL) Hepatic function panel (11/10/2024 9:24 PM CDT) Pathologist [facility] Bilirubin, total 1.2 0.1 - 1.2 mg/dL Bilirubin, direct 0.9(H) 0.1 - 0.3 mg/dL [facility] Protein, pl 4.9(L) 6.5 - 8.5 g/dL [facility] Albumin 1.8(L) 3.5 - 5.0 g/dL [facility] Alk phos 161(H) 40 - 130 Units/L [facility] ALT 72(H) 7 - 45 Units/L [facility] AST 100(H) 10 - 45 Units/L [facility] Blood 11/10/2024 9:24 PM CDT 11/10/2024 11:00 PM CDT us Lee Elena MD LAB BLOOD ORDERABLES Krystyna l Result Performing Organization Address [facility] de Phone Number [facility] [place] [address] * (ABNORMAL) Basic metabolic panel (11/10/2024 9:24 PM CDT) Sodium 134(L) 135 - 145 mmol/L Potassium, pl 3.4 3.3 - 4.9 mmol/L [facility] Chloride 102 97 - 110 mmol/L [facility] CO2 22 22 - 32 mmol/L [facility] Anion gap 10 2 - 15 mmol/L [facility] BUN 5(L) 6 - 25 mg/dL [facility] Creatinine 0.35(L) 0.60 - 1.10 mg/dL [facility] Glucose 111 70 - 199 mg/dL [facility] Comment: Interpretive Data Fasting glucose >/= 126 mg/dl is diagnostic for diabetes. Fasting is defined as no caloric intake for at least 8 hours. Fasting glucose between 100 mg/dl to 125 mg/dl is diagnostic of prediabetes. In a patient with classic symptoms of hyperglycemia or hyperglycemic crisis, a random glucose >/= 200 mg/dl is diagnostic for diabetes. In the absence of unequivocal hyperglycemia, results should be confirmed by repeat testing. The classification and Diagnosis of Diabetes Diabetes Care 2021; 46: S19-S40. Current interpretive data was last revised 2022. Calcium 8.1(L) 8.5 - 10.3 mg/dL [facility] Blood 11/10/2024 9:24 PM CDT 11/10/2024 11:00 PM CDT Lee Elena MD LAB BLOOD ORDERABLES Krystyna l Result Performing Organization Address City/[facility]/ZIP Co de Phone Number [facility] [place] [address] * POCT glucose (11/10/2024 8:06 PM CDT) Glucose, POC 139 70 - 199 mg/dL Blood 11/10/2024 8:06 PM CDT 11/10/2024 8:06 PM CDT Result [facility] Lee Elena MD LAB POCT ORDERABLES - DEV ICE Final Result [facility] [place] [address] * POCT glucose (11/10/2024 4:37 PM CDT) Glucose, POC 104 70 - 199 mg/dL Blood 11/10/2024 4:37 PM CDT 11/10/2024 4:37 PM CDT Lee Elena MD LAB POCT ORDERABLES - DEV ICE Final Result [facility] [place] [address] * XR Ribs Bilateral 4 or More Views W PA Chest (11/10/2024 4:21 PM CDT) Anatomical Region Laterality Modality Rib, Chest Bilateral Computed Radiogr aphy 11/11/2024 8:57 AM CDT Impressions 11/11/2024 8:57 AM CDT 1. No acute, displaced rib fracture. Electronically signed by: Daniela Willis MD Narrative 11/11/2024 8:57 AM CDT EXAMINATION: XR RIBS BILATERAL 4 OR MORE VIEWS W PA CHEST HISTORY: Rib pain. FINDINGS: Comparison to chest radiograph 11/09/2024, CT 11/01/2024. No acute, displaced rib fracture. Chronic deformity left 2nd rib laterally is unchanged. Small right pleural effusion is unchanged. No significant pneumothorax Procedure Note Daniela Willis MD - 11/11/2024 EXAMINATION: XR RIBS BILATERAL 4 OR MORE VIEWS W PA CHEST HISTORY: Rib pain. FINDINGS: Comparison to chest radiograph 11/09/2024, CT 11/01/2024. No acute, displaced rib fracture. Chronic deformity left 2nd rib laterally is unchanged. Small right pleural effusion is unchanged. No significant pneumothorax IMPRESSION: 1. No acute, displaced rib fracture. Electronically signed by: Daniela Willis MD Lee Elena MD IMG XR PROCEDURES Final R esult * (ABNORMAL) Hemoglobin and hematocrit (11/10/2024 3:00 PM CDT) Hgb 9.5(L) 11.9 - 15.5 g/dL Hct 27.8(L) 35.6 - 45.5 % [facility] Blood 11/10/2024 3:00 PM CDT 11/10/2024 3:38 PM CDT us Ash Valencia MD LAB BLOOD ORDERABLES Final Resul t [facility] [place] [address] * (ABNORMAL) Blood culture Blood (11/10/2024 2:37 PM CDT) Direct Specimen Exam Stain: Gram Positive Cocci in clusters Time to culture positivity (aerobic media): 22.3 hours Time to culture positivity (anaerobic media): 29.9 hours Report Final Report: Staphylococcus aureus For susceptibility results, refer to accession number [id number] on the blood culture from 11/09/2024 (.) [facility] Organism STAPHYLOCOCCUS AUREUS [facility] Blood 11/10/2024 2:37 PM CDT 11/10/2024 3:44 PM CDT N[facility]ative [facility] - 11/14/2024 1:07 PM CDT From a different site than #1. Collection->Peripheral 1. Blood cultures are incubated for 4 days on a continuously monitored blood culture system. The first report of a negative culture is issued within 24 hours of receipt of the specimen in the laboratory. 2. Positive culture results are reported as soon as they are detected. 3. The most important factor for detection of microbes in the setting of bloodstream infection is the volume of blood submitted for culture. Failure to collect an optimal blood volume can result in false negative blood cultures. 4. For pediatric patients, the recommended blood volume to collect follows a weight based strategy. See the electronic test catalog for collection instructions. 5. For positive blood cultures, a rapid molecular test may be performed for organism identification using the sherri ePlex blood culture identification panel for gram positive (BCID-GP) and gram negative (BCID-GN) organisms. This nucleic acid amplification test detects microbial DNA in positive blood culture broth. This assay has been cleared by the [place] Food and Drug Administration and its performance characteristics have been verified by the [facility]. For questions about this culture, contact the Microbiology Laboratory at [phone]. Interpretive data was last revised on 24. us Lee Elena MD LAB MICROBIOLOGY - GENERA L ORDERABLES Final Result Performing Organization Address [facility]/ZIP Co de Phone Number [facility] [place] [address] * (ABNORMAL) Blood culture Blood (11/10/2024 2:37 PM CDT) Direct Specimen Exam Stain: Gram Positive Cocci in clusters Time to culture positivity (aerobic media): 18.6 hours Time to culture positivity (anaerobic media): 22.9 hours Report Final Report: Staphylococcus aureus For susceptibility results, refer to accession number [id number] on the blood culture from 11/09/2024 (.) [facility] Organism STAPHYLOCOCCUS AUREUS [facility] Blood 11/10/2024 2:37 PM CDT 11/10/2024 3:44 PM CDT Narrative [facility] - 11/14/2024 1:09 PM CDT Collection->Peripheral 1. Blood cultures are incubated for 4 days on a continuously monitored blood culture system. The first report of a negative culture is issued within 24 hours of receipt of the specimen in the laboratory. 2. Positive culture results are reported as soon as they are detected. 3. The most important factor for detection of microbes in the setting of bloodstream infection is the volume of blood submitted for culture. Failure to collect an optimal blood volume can result in false negative blood cultures. 4. For pediatric patients, the recommended blood volume to collect follows a weight based strategy. See the electronic test catalog for collection instructions. 5. For positive blood cultures, a rapid molecular test may be performed for organism identification using the sherri ePlex blood culture identification panel for gram positive (BCID-GP) and gram negative (BCID-GN) organisms. This nucleic acid amplification test detects microbial DNA in positive blood culture broth. This assay has been cleared by the [place] Food and Drug Administration and its performance characteristics have been verified by the [facility]. For questions about this culture, contact the Microbiology Laboratory at [phone]. Interpretive data was last revised on 24. Lee Elena MD LAB MICROBIOLOGY - GENERA L ORDERABLES Final Result [facility] [place] [address] * Transfuse RBC (11/10/2024 2:03 PM CDT) Blood Lee Elena MD BLOOD TRANSFUSION ORDERAB LES Final Result Performing Organization Address [facility] Co de Phone Number [facility] [place] [address] * eGFR (11/10/2024 2:00 PM CDT) eGFR >90 >=60 mL/min/1. 73 m2 Comment: Interpretive Data Reference Interval Normal >/= 90 mL/min/1.73m2 Mildly decreased* 60 - 89 mL/min/1.73m2 Mildly to moderately decreased 45 - 59 mL/min/1.73m2 Moderately to severely decreased 30 - 44 mL/min/1.73m2 Severely decreased 15 - 29 mL/min/1.73m2 Kidney Failure < 15 mL/min/1.73m2 *Relative to young adult level Estimated glomerular filtration rate is determined by the 2020 CKD-EPI equation recommended by the National Kidney Foundation (A Unifying Approach to GFR Estimation: Recommendations of the NKF-ASK Task Force on Reassessing the Inclusion of Race in Diagnosing Kidney Disease, JASN 202). The CKD-EPI equation should not be used for patients with unstable renal function and has not been validated in children and those over 70. Current interpretive data was last reviewed 2021. Blood 11/10/2024 2:00 PM CDT 11/10/2024 3:44 PM CDT us Lee Elena MD LAB BLOOD ORDERABLES Krystyna l Result Performing Organization Address [facility] Co de Phone Number [facility] [place] [address] * Phosphorus (11/10/2024 2:00 PM CDT) Phosphorus, pl 2.7 2.3 - 4.5 mg/dL Blood 11/10/2024 2:00 PM CDT 11/10/2024 3:40 PM CDT Lee Elena MD LAB BLOOD ORDERABLES Krystyna l Result Performing Organization Address City/[facility]/ZIP Co de Phone Number [facility] Department [place] [address] * Magnesium (11/10/2024 2:00 PM CDT) [facility] Magnesium 1.5 1.4 - 2.5 mg/dL Blood 11/10/2024 2:00 PM CDT 11/10/2024 3:40 PM CDT Lee Elena MD LAB BLOOD ORDERABLES Krystyna l Result Performing Organization Address [facility] de Phone Number [facility] Department [place] [address] * (ABNORMAL) Basic metabolic panel (11/10/2024 2:00 PM CDT) [facility] Sodium 135 135 - 145 mmol/L Potassium, pl 3.8 3.3 - 4.9 mmol/L [facility] Chloride 104 97 - 110 mmol/L [facility] CO2 20(L) 22 - 32 mmol/L [facility] Anion gap 11 2 - 15 mmol/L [facility] BUN 6 6 - 25 mg/dL [facility] Creatinine 0.36(L) 0.60 - 1.10 mg/dL [facility] Glucose 99 70 - 199 mg/dL [facility] Comment: Interpretive Data Fasting glucose >/= 126 mg/dl is diagnostic for diabetes. Fasting is defined as no caloric intake for at least 8 hours. Fasting glucose between 100 mg/dl to 125 mg/dl is diagnostic of prediabetes. In a patient with classic symptoms of hyperglycemia or hyperglycemic crisis, a random glucose >/= 200 mg/dl is diagnostic for diabetes. In the absence of unequivocal hyperglycemia, results should be confirmed by repeat testing. The classification and Diagnosis of Diabetes Diabetes Care 2021; 46: S19-S40. Current interpretive data was last revised 2022. Calcium 8.1(L) 8.5 - 10.3 mg/dL [facility] Blood 11/10/2024 2:00 PM CDT 11/10/2024 3:40 PM CDT Lee Elena MD LAB BLOOD ORDERABLES Krystyna l Result Performing Organization Address [facility] Co de Phone Number [facility] [place] [address] * POCT glucose (11/10/2024 11:29 AM CDT) Glucose, POC 131 70 - 199 mg/dL Blood 11/10/2024 11:2 9 AM CDT 11/10/2024 11:29 AM CDT Lee Elena MD LAB POCT ORDERABLES - DEV ICE Final Result Performing Organization Address [facility] de Phone Number [facility] [place] [address] * Type and screen (11/10/2024 8:35 AM CDT) ABO Rh A Positive Zach, indirect Negative [facility] Blood 11/10/2024 8:35 AM CDT 11/10/2024 9:58 AM CDT Narrative [facility] - 11/10/2024 10:47 AM CDT Has the patient had Daratumumab or Isatuximab in the past 6 months?->Unknown Lee Elena MD LAB BLOOD BANK TEST ORDER ALINE Final Result Performing Organization Address [facility] Co de Phone Number [facility] Department [place] [address] * Prepare RBC: 1 Units (11/10/2024 8:10 AM CDT) [facility] Product code [id number] Unit Number [id number] [facility] Product Blood Type APOS [facility] Dispense Status PRESUMED TRANSFUSED [facility] Blood 11/10/2024 8:10 AM CDT 11/10/2024 8:10 AM CDT Narrative [facility] - 11/11/2024 12:55 AM CDT Are special requirements needed? (All products are leukoreduced and CMV- safe)- >No Date required:-[id number] LRRBC # of [id number] Reasons:-Hgb <7 g/dL} Lee Elena MD BLOOD BANK PRODUCT ORDERA BLES Final Result Performing Organization Address City/[facility]/ZIP Co de Phone Number [facility] Department [place] [address] * POCT glucose (11/10/2024 7:52 AM CDT) [facility] Glucose, POC 112 70 - 199 mg/dL Blood 11/10/2024 7:52 AM CDT 11/10/2024 7:52 AM CDT Lee Elena MD LAB POCT ORDERABLES - [place] [address] * eGFR (11/10/2024 5:42 AM CDT) [facility] eGFR >90 >=60 mL/min/1. 73 m2 Comment: Interpretive Data Reference Interval Normal >/= 90 mL/min/1.73m2 Mildly decreased* 60 - 89 mL/min/1.73m2 Mildly to moderately decreased 45 - 59 mL/min/1.73m2 Moderately to severely decreased 30 - 44 mL/min/1.73m2 Severely decreased 15 - 29 mL/min/1.73m2 Kidney Failure < 15 mL/min/1.73m2 *Relative to young adult level Estimated glomerular filtration rate is determined by the 2020 CKD-EPI equation recommended by the National Kidney Foundation (A Unifying Approach to GFR Estimation: Recommendations of the NKF-ASK Task Force on Reassessing the Inclusion of Race in Diagnosing Kidney Disease, JASN 2020). The CKD-EPI equation should not be used for patients with unstable renal function and has not been validated in children and those over 70. Current interpretive data was last reviewed 2021. Blood 11/10/2024 5:42 AM CDT 11/10/2024 6:22 AM CDT Lee Elena MD LAB BLOOD ORDERABLES Krystyna l Result Performing Organization Address City/[facility]/ZIP Co de Phone Number [facility] [place] [address] * (ABNORMAL) Hemoglobin and hematocrit (11/10/2024 5:42 AM CDT) Hgb 6.8(L) 11.9 - 15.5 g/dL Hct 19.8(L) 35.6 - 45.5 % [facility] Blood 11/10/2024 5:42 AM CDT 11/10/2024 6:16 AM CDT Lee Elena MD LAB BLOOD ORDERABLES Krystyna l Result [facility] [place] [address] * Phosphorus (11/10/2024 5:42 AM CDT) Phosphorus, pl 3.6 2.3 - 4.5 mg/dL Blood 11/10/2024 5:42 AM CDT 11/10/2024 6:22 AM CDT Lee Elena MD LAB BLOOD ORDERABLES Krystyna l Result Performing Organization Address City/[facility]/ZIP Co de Phone Number [facility] [place] [address] * Magnesium (11/10/2024 5:42 AM CDT) [facility] Magnesium 2.1 1.4 - 2.5 mg/dL Blood 11/10/2024 5:42 AM CDT 11/10/2024 6:22 AM CDT Lee Elena MD LAB BLOOD ORDERABLES Krystyna l Result Performing Organization Address [facility] de Phone Number [facility] Department [place] [address] * (ABNORMAL) Basic metabolic panel (11/10/2024 5:42 AM CDT) [facility] Sodium 134(L) 135 - 145 mmol/L Potassium, pl 4.5 3.3 - 4.9 mmol/L [facility] Chloride 106 97 - 110 mmol/L [facility] CO2 21(L) 22 - 32 mmol/L [facility] Anion gap 7 2 - 15 mmol/L [facility] BUN 7 6 - 25 mg/dL [facility] Creatinine 0.36(L) 0.60 - 1.10 mg/dL [facility] Glucose 98 70 - 199 mg/dL [facility] Comment: Interpretive Data Fasting glucose >/= 126 mg/dl is diagnostic for diabetes. Fasting is defined as no caloric intake for at least 8 hours. Fasting glucose between 100 mg/dl to 125 mg/dl is diagnostic of prediabetes. In a patient with classic symptoms of hyperglycemia or hyperglycemic crisis, a random glucose >/= 200 mg/dl is diagnostic for diabetes. In the absence of unequivocal hyperglycemia, results should be confirmed by repeat testing. The classification and Diagnosis of Diabetes Diabetes Care 2021; 46: S19-S40. Current interpretive data was last revised 2022. Calcium 7.7(L) 8.5 - 10.3 mg/dL [facility] Blood 11/10/2024 5:42 AM CDT 11/10/2024 6:22 AM CDT Lee Elena MD LAB BLOOD ORDERABLES Krystyna l Result Performing Organization Address City/[facility] Co de Phone Number [facility] [place] [address] * POCT glucose (11/10/2024 4:15 AM CDT) Glucose, POC 112 70 - 199 mg/dL Blood 11/10/2024 4:15 AM CDT 11/10/2024 4:15 AM CDT Lee Elena MD LAB POCT ORDERABLES - DEV ICE Final Result Performing Organization Address City/[facility] Co de Phone Number [facility] [place] [address] * POCT glucose (11/09/2024 10:17 PM CDT) Glucose, POC 119 70 - 199 mg/dL Blood 11/09/2024 10:1 7 PM CDT 11/09/2024 10:17 PM CDT Lee Elena MD LAB POCT ORDERABLES - DEV ICE Final Result Performing Organization Address City/[facility] Co de Phone Number [facility] [place] [address] * eGFR (11/09/2024 10:09 PM CDT) eGFR >90 >=60 mL/min/1. 73 m2 Comment: Interpretive Data Reference Interval Normal >/= 90 mL/min/1.73m2 Mildly decreased* 60 - 89 mL/min/1.73m2 Mildly to moderately decreased 45 - 59 mL/min/1.73m2 Moderately to severely decreased 30 - 44 mL/min/1.73m2 Severely decreased 15 - 29 mL/min/1.73m2 Kidney Failure < 15 mL/min/1.73m2 *Relative to young adult level Estimated glomerular filtration rate is determined by the 2020 CKD-EPI equation recommended by the National Kidney Foundation (A Unifying Approach to GFR Estimation: Recommendations of the NKF-ASK Task Force on Reassessing the Inclusion of Race in Diagnosing Kidney Disease, JASN 202). The CKD-EPI equation should not be used for patients with unstable renal function and has not been validated in children and those over 70. Current interpretive data was last reviewed 2021. Blood 11/09/2024 10:0 9 PM CDT 11/09/2024 10:28 PM CDT us Lee Elena MD LAB BLOOD ORDERABLES Krystyna meyers Result [facility] [place] [address] * (ABNORMAL) Differential, auto (11/09/2024 10:09 PM CDT) Neutrophil abs 4.11 1.50 - 6.50 K/cumm Imm gran abs 0.03 0.00 - 0.10 K/cumm [facility] Lymphocyte abs 0.51(L) 0.80 - 3.30 K/cumm [facility] Monocyte abs 0.26 0.20 - 0.80 K/cumm [facility] Eosinophil abs 0.01 0.00 - 0.50 K/cumm [facility] Basophil abs 0.01 0.00 - 0.10 K/cumm [facility] Neutrophil pct 83.4 % [facility] Comment: Interpretive Data Percent cell count reference ranges are not reported, since discordance with absolute values may lead to misinterpretation of CBC data. Current Interpretive Data was last revised on 2017. Imm gran pct 0.6 % [facility] Comment: Interpretive Data Percent cell count reference ranges are not reported, since discordance with absolute values may lead to misinterpretation of CBC data. Current Interpretive Data was last revised on 2017. Lymphocyte pct 10.3 % [facility] Comment: Interpretive Data Percent cell count reference ranges are not reported, since discordance with absolute values may lead to misinterpretation of CBC data. Current Interpretive Data was last revised on 2017. Monocyte pct 5.3 % [facility] Comment: Interpretive Data Percent cell count reference ranges are not reported, since discordance with absolute values may lead to misinterpretation of CBC data. Current Interpretive Data was last revised on 2017. Eosinophil pct 0.2 % [facility] Comment: Interpretive Data Percent cell count reference ranges are not reported, since discordance with absolute values may lead to misinterpretation of CBC data. Current Interpretive Data was last revised on 2017. Basophil pct 0.2 % [facility] Comment: Interpretive Data Percent cell count reference ranges are not reported, since discordance with absolute values may lead to misinterpretation of CBC data. Current Interpretive Data was last revised on 2017. Blood 11/09/2024 10:0 9 PM CDT 11/09/2024 10:29 PM CDT Lee Elena MD LAB BLOOD ORDERABLES Krystyna meyers Result [facility] [place] [address] * (ABNORMAL) CBC with auto differential (11/09/2024 10:09 PM CDT) WBC 4.93 3.80 - 9.90 K/cumm Hgb 7.0(L) 11.9 - 15.5 g/dL [facility] Hct 20.4(L) 35.6 - 45.5 % [facility] Plt 100(L) 150 - 400 K/cumm [facility] MPV 10.9 9.1 - 12.3 fL [facility] RBC 2.02(L) 3.90 - 5.20 M/cumm [facility] MCV 101.0(H) 81.3 - 96.4 fL [facility] MCH 34.7(H) 27.1 - 33.3 pg [facility] MCHC 34.3 32.3 - 35.7 g/dL [facility] RDW CV 17.1(H) 11.1 - 14.9 % [facility] RDW SD 61.7(H) 35.7 - 48.1 fL [facility] NRBC abs 0.02(H) 0.00 - 0.01 K/cumm [facility] Blood 11/09/2024 10:0 9 PM CDT 11/09/2024 10:29 PM CDT Lee Elena MD LAB BLOOD ORDERABLES Krystyna l Result Performing Organization Address [facility] de Phone Number [facility] [place] [address] * (ABNORMAL) Protime-INR (11/09/2024 10:09 PM CDT) Pathologist [facility] PT 17.4(H) 9.7 - 13.0 sec INR 1.60(H) 0.90 - 1.20 [facility] Comment: Interpretive data Oral anticoagulant therapeutic ranges: Venous thromboembolism prophylaxis or treatment: 2.0-3.0 CARDIOLOGY Standard range: 2.0-3.0 High-intensity range: 2.5-3.5 Refer to indication-specific guidelines for appropriate target ranges for prosthetic heart valve replacement. Current interpretive data was last revised on 2019. Blood 11/09/2024 10:0 9 PM CDT 11/09/2024 10:34 PM CDT Lee Elena MD LAB BLOOD ORDERABLES Krystyna l Result Performing Organization Address [facility] de Phone Number [facility] [place] [address] * (ABNORMAL) Phosphorus (11/09/2024 10:09 PM CDT) Phosphorus, pl 2.2(L) 2.3 - 4.5 mg/dL Blood 11/09/2024 10:0 9 PM CDT 11/09/2024 10:28 PM CDT Lee Elena MD LAB BLOOD ORDERABLES Krystyna l Result Performing Organization Address City/[facility]/ZIP Co de Phone Number [facility] [place] [address] * Magnesium (11/09/2024 10:09 PM CDT) [facility] Magnesium 1.5 1.4 - 2.5 mg/dL Blood 11/09/2024 10:0 9 PM CDT 11/09/2024 10:28 PM CDT Result [facility] Lee Elena MD LAB BLOOD ORDERABLES Krystyna l Result Performing Organization Address [facility] de Phone Number [facility] [place] [address] * (ABNORMAL) Hepatic function panel (11/09/2024 10:09 PM CDT) [facility] Bilirubin, total 1.2 0.1 - 1.2 mg/dL Bilirubin, direct 0.9(H) 0.1 - 0.3 mg/dL [facility] Protein, pl 4.5(L) 6.5 - 8.5 g/dL [facility] Albumin 1.8(L) 3.5 - 5.0 g/dL [facility] Alk phos 102 40 - 130 Units/L [facility] ALT 110(H) 7 - 45 Units/L [facility] AST 121(H) 10 - 45 Units/L [facility] Blood 11/09/2024 10:0 9 PM CDT 11/09/2024 10:28 PM CDT Lee Elena MD LAB BLOOD ORDERABLES Krystyna l Result [facility] [place] [address] * (ABNORMAL) Basic metabolic panel (11/09/2024 10:09 PM CDT) Sodium 137 135 - 145 mmol/L Potassium, pl 3.3 3.3 - 4.9 mmol/L [facility] Chloride 104 97 - 110 mmol/L [facility] CO2 23 22 - 32 mmol/L [facility] Anion gap 10 2 - 15 mmol/L [facility] BUN 8 6 - 25 mg/dL [facility] Creatinine 0.38(L) 0.60 - 1.10 mg/dL [facility] Glucose 102 70 - 199 mg/dL [facility] Comment: Interpretive Data Fasting glucose >/= 126 mg/dl is diagnostic for diabetes. Fasting is defined as no caloric intake for at least 8 hours. Fasting glucose between 100 mg/dl to 125 mg/dl is diagnostic of prediabetes. In a patient with classic symptoms of hyperglycemia or hyperglycemic crisis, a random glucose >/= 200 mg/dl is diagnostic for diabetes. In the absence of unequivocal hyperglycemia, results should be confirmed by repeat testing. The classification and Diagnosis of Diabetes Diabetes Care 2021; 46: S19-S40. Current interpretive data was last revised 2022. Calcium 8.0(L) 8.5 - 10.3 mg/dL [facility] Blood 11/09/2024 10:0 9 PM CDT 11/09/2024 10:28 PM CDT us Lee Elena MD LAB BLOOD ORDERABLES Krystyna l Result [facility] One [facility] [place] [address] * POCT glucose (11/09/2024 6:05 PM CDT) Glucose, POC 101 70 - 199 mg/dL Blood 11/09/2024 6:05 PM CDT 11/09/2024 6:05 PM CDT Lee Elena MD LAB POCT ORDERABLES - DEV ICE Final Result Performing Organization Address [facility] Co de Phone Number [facility] [place] [address] * POCT glucose (11/09/2024 5:11 PM CDT) Glucose, POC 118 70 - 199 mg/dL Blood 11/09/2024 5:11 PM CDT 11/09/2024 5:11 PM CDT Lee Elena MD LAB POCT ORDERABLES - DEV ICE Final Result Performing Organization Address [facility] de Phone Number [facility] [place] [address] * Lactate (11/09/2024 1:20 PM CDT) [facility] Lactate 2.0 0.7 - 2.0 mmol/L Blood 11/09/2024 1:20 PM CDT 11/09/2024 2:24 PM CDT Lee Elena MD LAB BLOOD ORDERABLES Krystyna l Result Performing Organization Address [facility] Co de Phone Number [facility] [place] [address] * eGFR (11/09/2024 1:20 PM CDT) Pathologist [facility] [place] eGFR >90 >=60 mL/min/1. 73 m2 Comment: Interpretive Data Reference Interval Normal >/= 90 mL/min/1.73m2 Mildly decreased* 60 - 89 mL/min/1.73m2 Mildly to moderately decreased 45 - 59 mL/min/1.73m2 Moderately to severely decreased 30 - 44 mL/min/1.73m2 Severely decreased 15 - 29 mL/min/1.73m2 Kidney Failure < 15 mL/min/1.73m2 *Relative to young adult level Estimated glomerular filtration rate is determined by the 2020 CKD-EPI equation recommended by the National Kidney Foundation (A Unifying Approach to GFR Estimation: Recommendations of the NKF-ASK Task Force on Reassessing the Inclusion of Race in Diagnosing Kidney Disease, JASN 2020). The CKD-EPI equation should not be used for patients with unstable renal function and has not been validated in children and those over 70. Current interpretive data was last reviewed 2021. Blood 11/09/2024 1:20 PM CDT 11/09/2024 2:25 PM CDT us Lee Elena MD LAB BLOOD ORDERABLES Krystyna meyers Result [facility] [place] [address] * (ABNORMAL) Differential, auto (11/09/2024 1:20 PM CDT) Pathologist [facility] [place] Neutrophil abs 4.77 1.50 - 6.50 K/cumm Imm gran abs 0.03 0.00 - 0.10 K/cumm [facility] Lymphocyte abs 0.25(L) 0.80 - 3.30 K/cumm [facility] Monocyte abs 0.19(L) 0.20 - 0.80 K/cumm [facility] Eosinophil abs 0.00 0.00 - 0.50 K/cumm [facility] Basophil abs 0.00 0.00 - 0.10 K/cumm [facility] Neutrophil pct 91.0 % [facility] Comment: Interpretive Data Percent cell count reference ranges are not reported, since discordance with absolute values may lead to misinterpretation of CBC data. Current Interpretive Data was last revised on 2017. Imm gran pct 0.6 % [facility] Comment: Interpretive Data Percent cell count reference ranges are not reported, since discordance with absolute values may lead to misinterpretation of CBC data. Current Interpretive Data was last revised on 2017. Lymphocyte pct 4.8 % [facility] Comment: Interpretive Data Percent cell count reference ranges are not reported, since discordance with absolute values may lead to misinterpretation of CBC data. Current Interpretive Data was last revised on 2017. Monocyte pct 3.6 % [facility] Comment: Interpretive Data Percent cell count reference ranges are not reported, since discordance with absolute values may lead to misinterpretation of CBC data. Current Interpretive Data was last revised on 2017. Eosinophil pct 0.0 % [facility] Comment: Interpretive Data Percent cell count reference ranges are not reported, since discordance with absolute values may lead to misinterpretation of CBC data. Current Interpretive Data was last revised on 2017. Basophil pct 0.0 % [facility] Comment: Interpretive Data Percent cell count reference ranges are not reported, since discordance with absolute values may lead to misinterpretation of CBC data. Current Interpretive Data was last revised on 2017. Blood 11/09/2024 1:20 PM CDT 11/09/2024 2:25 PM CDT us Lee Elena MD LAB BLOOD ORDERABLES Krystyna meyers Result [facility] [place] [address] * (ABNORMAL) CBC with auto differential (11/09/2024 1:20 PM CDT) WBC 5.24 3.80 - 9.90 K/cumm Hgb 7.8(L) 11.9 - 15.5 g/dL [facility] Hct 22.3(L) 35.6 - 45.5 % [facility] Plt 120(L) 150 - 400 K/cumm [facility] MPV 11.2 9.1 - 12.3 fL [facility] RBC 2.24(L) 3.90 - 5.20 M/cumm [facility] MCV 99.6(H) 81.3 - 96.4 fL [facility] MCH 34.8(H) 27.1 - 33.3 pg [facility] MCHC 35.0 32.3 - 35.7 g/dL [facility] RDW CV 16.8(H) 11.1 - 14.9 % [facility] RDW SD 59.7(H) 35.7 - 48.1 fL [facility] NRBC abs 0.00 0.00 - 0.01 K/cumm [facility] Blood 11/09/2024 1:20 PM CDT 11/09/2024 2:25 PM CDT Lee Elena MD LAB BLOOD ORDERABLES Krystyna l Result [facility] [place] [address] * (ABNORMAL) Phosphorus (11/09/2024 1:20 PM CDT) Phosphorus, pl 2.1(L) 2.3 - 4.5 mg/dL Blood 11/09/2024 1:20 PM CDT 11/09/2024 2:25 PM CDT Lee Elena MD LAB BLOOD ORDERABLES Krystyna l Result Performing Organization Address City/[facility] Co de Phone Number [facility] [place] [address] * Magnesium (11/09/2024 1:20 PM CDT) Magnesium 1.8 1.4 - 2.5 mg/dL Blood 11/09/2024 1:20 PM CDT 11/09/2024 2:25 PM CDT Lee Elena MD LAB BLOOD ORDERABLES Krystyna l Result [facility] [place] [address] * (ABNORMAL) Hepatic function panel (11/09/2024 1:20 PM CDT) [facility] Bilirubin, total 1.7(H) 0.1 - 1.2 mg/dL Bilirubin, direct 1.2(H) 0.1 - 0.3 mg/dL [facility] Protein, pl 5.2(L) 6.5 - 8.5 g/dL [facility] Albumin 2.2(L) 3.5 - 5.0 g/dL [facility] Alk phos 125 40 - 130 Units/L [facility] ALT 152(H) 7 - 45 Units/L [facility] AST 173(H) 10 - 45 Units/L [facility] Blood 11/09/2024 1:20 PM CDT 11/09/2024 2:25 PM CDT us Lee Elena MD LAB BLOOD ORDERABLES Krystyna l Result [facility] [place] [address] * (ABNORMAL) Basic metabolic panel (11/09/2024 1:20 PM CDT) [facility] Sodium 134(L) 135 - 145 mmol/L Potassium, pl 4.4 3.3 - 4.9 mmol/L [facility] Chloride 105 97 - 110 mmol/L [facility] Comment:Repeated and Verifie d CO2 22 22 - 32 mmol/L [facility] Anion gap 8 2 - 15 mmol/L [facility] BUN 8 6 - 25 mg/dL [facility] Creatinine 0.39(L) 0.60 - 1.10 mg/dL [facility] Glucose 98 70 - 199 mg/dL [facility] Comment: Interpretive Data Fasting glucose >/= 126 mg/dl is diagnostic for diabetes. Fasting is defined as no caloric intake for at least 8 hours. Fasting glucose between 100 mg/dl to 125 mg/dl is diagnostic of prediabetes. In a patient with classic symptoms of hyperglycemia or hyperglycemic crisis, a random glucose >/= 200 mg/dl is diagnostic for diabetes. In the absence of unequivocal hyperglycemia, results should be confirmed by repeat testing. The classification and Diagnosis of Diabetes Diabetes Care 2021; 46: S19-S40. Current interpretive data was last revised 2022. Calcium 9.6 8.5 - 10.3 mg/dL [facility] Blood 11/09/2024 1:20 PM CDT 11/09/2024 2:25 PM CDT Lee Elena MD LAB BLOOD ORDERABLES Krystyna l Result Performing Organization Address City/[facility] Co de Phone Number [facility] [place] [address] * POCT glucose (11/09/2024 11:33 AM CDT) Glucose, POC 115 70 - 199 mg/dL Blood 11/09/2024 11:3 3 AM CDT 11/09/2024 11:33 AM CDT Lee Elena MD LAB POCT ORDERABLES - DEV ICE Final Result Performing Organization Address [facility] Co de Phone Number [facility] [place] [address] * POCT glucose (11/09/2024 7:00 AM CDT) Glucose, POC 146 70 - 199 mg/dL Blood 11/09/2024 7:00 AM CDT 11/09/2024 7:00 AM CDT Lee Elena MD LAB POCT ORDERABLES - DEV ICE Final Result Performing Organization Address City/[facility] Co de Phone Number [facility] [place] [address] * C. difficile testing Stool (11/09/2024 5:53 AM CDT) [facility] Positive Negative Toxin Result Negative Negative [facility] C. diff result Negative, free toxin. Negative, free toxin [facility] C. diff interp GDH+/toxin- results almost never represent true C. difficile infection (CDI). Results may represent colonization with C. difficile without CDI, detection of a bacteria other than toxigenic C. difficile, or a false negative toxin assay. If there is a high index of suspicion for CDI, additional testing by PCR is available upon request. [facility] Stool 11/09/2024 5:53 AM CDT 11/09/2024 8:03 AM CDT Lee Elena MD LAB MICROBIOLOGY - GENERA L ORDERABLES Final Result Performing Organization Address City/[facility]/ZIP Co de Phone Number [facility] [place] [address] * POCT glucose (11/09/2024 4:41 AM CDT) Glucose, POC 102 70 - 199 mg/dL Blood 11/09/2024 4:41 AM CDT 11/09/2024 4:41 AM CDT Lee Elena MD LAB POCT ORDERABLES - DEV ICE Final Result Performing Organization Address City/[facility]/ZIP Co de Phone Number [facility] [place] [address] * Influenza A/B, RSV, and COVID-19 PCR Nasopharyngeal (11/09/2024 3:40 AM CDT) [facility] COVID-19 RNA Negative Negative [facility] Influenza A RNA Negative Negative [facility] Influenza B RNA Negative Negative [facility] RSV RNA Negative Negative [facility] Comment: Interpretive data: Testing performed by [facility] ([phone]). This test is performed using the CTMGert Xpress CoV-2/Flu/RSV plus assay. This is a multiplex, real-time reverse transcriptase PCR assay intended for the qualitative detection of nucleic acid from SARS-CoV-2, influenza A, influenza B, and respiratory syncytial virus. This assay has been cleared by the [place] Food and Drug administration. The performance characteristics have been verified by the [facility]. Results must be considered in the clinical context, and a negative result does not rule out infection. Interpretive Data last revised 2023 Nasopharyngeal 11/09/2024 3: 40 AM CDT 11/09/2024 4:57 AM CDT Narrative [facility] 11/09/2024 5:52 AM CDT Is the Patient experiencing symptoms consistent with COVID?->No Lee Elena MD LAB MICROBIOLOGY - GENERA L ORDERABLES Final Result Performing Organization Address City/[facility]/ZIP Co de Phone Number [facility] [place] [address] [facility] * (ABNORMAL) Hemoglobin and hematocrit (11/09/2024 3:40 AM CDT) Pathologist [facility] [place] Hgb 7.7(L) 11.9 - 15.5 g/dL Hct 20.9(L) 35.6 - 45.5 % [facility] Blood 11/09/2024 3:40 AM CDT 11/09/2024 3:50 AM CDT Lee Elena MD LAB BLOOD ORDERABLES Krystyna l Result Performing Organization Address City/[facility] Co de Phone Number [facility] [place] [address] * XR Chest 1 View (11/09/2024 2:18 AM CDT) Anatomical Region Laterality Modality Body, Chest N/A Digital Radiogra phy 11/09/2024 9:50 AM CDT Impressions 11/09/2024 12:[address] dated 11/01/2024. Small right-sided pleural effusion with atelectasis. No left-sided pleural effusion. No pneumothorax. No consolidation. Normal cardiac mediastinal silhouette. Dictated by: Marii Fabian MD The radiology attending physician has personally reviewed this study, and had reviewed and/or edited this written report and agrees with it. Electronically signed by: Fabian Sesay M.D. Narrative 11/09/2024 12:47 PM CDT EXAMINATION: 1 view chest radiograph Procedure Note Fabian Sesay MD - 11/09/2024 EXAMINATION: 1 view chest radiograph IMPRESSION: Comparison CT dated 11/01/2024. Small right-sided pleural effusion with atelectasis. No left-sided pleural effusion. No pneumothorax. No consolidation. Normal cardiac mediastinal silhouette. Dictated by: Marii Fabian MD The radiology attending physician has personally reviewed this study, and had reviewed and/or edited this written report and agrees with it. Electronically signed by: Fabian Sesay M.D. Lee Elena MD IMG XR PROCEDURES Final R esult * (ABNORMAL) Urinalysis reflex to microscopic and culture Urine, in and out catheter (11/09/2024 2:18AM CDT) Color, ur Yellow Yellow Clarity, ur Cloudy(A) Clear [facility] Specific gravity, ur 1.018 1.003 - 1.030 [facility] pH, urine 6.0 [facility] Comment: Interpretive Data U rine pH is affected by diet, medications, systemic acid-base disturbances, and renal tubular function. pH may affect urinary stone formation. For example, urine pH below 6.0 may help reduce the tendency for calcium phosphate stones and pH greater than 6.0 may reduce the tendency for uric acid stone formation. Source: [employer] Current Interpretive Data was last revised on 2017 Protein, ur ql Trace Negative [facility] Glucose, ur ql Negative Negative [facility] Ketones, ur Negative Negative [facility] Bilirubin, ur Negative Negative [facility] Blood, ur Negative Negative [facility] Urobilinogen, ur <2.0 <2.0 mg/dL [facility] Nitrite, ur Positive(A) Negative [facility] Leukocyte esterase, ur 1+(A) Negative [facility] UA reflex comment Reflex to microscopic UA will be performed. [facility] Urine, in and out catheter 11/09/2024 2:18 AM CDT 11/09/2024 3:31 AM CDT Lee Elena MD LAB MICROBIOLOGY - GENERA L ORDERABLES Final Result Performing Organization Address [facility] de Phone Number [facility] [place] [address] * (ABNORMAL) Urinalysis, microscopic only (11/09/2024 2:18 AM CDT) WBC, ur 21-50(A) 0 - 5 /HPF RBC, ur 0-2 0 - 2 /HPF [facility] Epithelial cells, renal, ur 1-5(A) 0 - 0 /HPF [facility] Bacteria, ur 2+(A) [facility] Mucous, ur Present(A) [facility] Culture Reflex Comment Reflex to urine culture will be performed. [facility] Urine, in and out catheter 11/09/2024 2:18 AM CDT 11/09/2024 3:31 AM CDT Lee Elena MD LAB URINE ORDERABLES Krystyna l Result Performing Organization Address [facility] de Phone Number [facility] [place] [address] * (ABNORMAL) Urine culture Urine, in and out catheter (11/09/2024 2:18 AM CDT) Report Final Report: Greater than or equal to 100,000 colonies/mL of Klebsiella pneumoniae Plus growth of clinically insignificant bacterial jemal. (.) Organism KLEBSIELLA PNEUMONIAE [facility] Organism PLUS GROWTH OF CLINICALLY INSIGNIFICANT JEMAL. [facility] Urine, in and out catheter 11/09/2024 2:18 AM CDT 11/09/2024 5:03 AM CDT Narrative [facility] - 11/11/2024 10:29 AM CDT Urine culture reflexed based upon urinalysis results. Testing performed by [facility] ([phone]) Organism Antibiotic Method Susceptibility Klebsiella pneumoniae Ampicillin INTERPRETATION Resistant Klebsiella pneumoniae Cefazolin INTERPRETATION Susceptible Klebsiella pneumoniae Nitrofurantoin INTERPRETATION Susceptible Klebsiella pneumoniae Gentamicin INTERPRETATION Susceptible Klebsiella pneumoniae Trimethoprim with Sulfamethoxazole INTERPRETATION Susceptible Klebsiella pneumoniae Meropenem INTERPRETATION Susceptible Klebsiella pneumoniae Cefepime INTERPRETATION Susceptible Klebsiella pneumoniae Ciprofloxacin INTERPRETATION Susceptible Klebsiella pneumoniae Ceftazidime INTERPRETATION Susceptible Klebsiella pneumoniae Ceftriaxone INTERPRETATION Susceptible Klebsiella pneumoniae Piperacillin/Tazobactam INTERPRE TATION Susceptible Klebsiella pneumoniae Cephalexin INTERPRETATION Susceptible Klebsiella pneumoniae Cefuroxime-axetil INTERPRETATION Susceptible Klebsiella pneumoniae Cefdinir INTERPRETATION Susceptible us Lee Elena MD LAB MICROBIOLOGY - GENERA L ORDERABLES Final Result [facility] [place] [address] * ECG 12 lead (11/09/2024 1:56 AM CDT) Pathologist [facility] [place] Ventricular Rate EKG/Min 121 BPM [facility] Atrial Rate 121 BPM [facility] AR-Interval (MSEC) 86 ms [facility] QRS-Interval (MSEC) 72 ms [facility] QT-Interval (MSEC) 334 ms [facility] QTc 474 ms [facility] P Victoria 19 degrees [facility] R [place] [address] [facility] T Victoria -[address] [facility] Diagnosis Sinus tachycardia with short AR Low voltage QRS Possible Inferior infarct , age undetermined ST & T wave abnormality, consider anterior ischemia Abnormal ECG When compared with ECG of 08-NOV-2024 05:56, AR interval has decreased Borderline criteria for Inferior infarct are now Present ST now depressed in Anterior leads Confirmed by SHALINI RODRIGUEZ M.D ([id number]) on 11/09/2024 10:00:[address] [facility] 11/09/2024 1:56 AM CDT 11/09/2024 10:00 PM CDT us Ash [place] MD ECG ORDERABLES Final Result [facility] * (ABNORMAL) Blood culture Blood (11/09/2024 1:39 AM CDT) Direct Specimen Exam Stain: Gram Positive Cocci in clusters Time to culture positivity (aerobic media): 9.4 hours Time to culture positivity (anaerobic media): 14.3 hours Report Final Report: Staphylococcus aureus For susceptibility results, refer to accession number [id number] on the blood culture from 11/09/2024 (.) [facility] Organism STAPHYLOCOCCUS AUREUS [facility] Blood 11/09/2024 1:39 AM CDT 11/09/2024 2:13 AM CDT Narrative [facility] - 11/12/2024 10:31 AM CDT From a different site than #1. Collection->Peripheral 1. Blood cultures are incubated for 4 days on a continuously monitored blood culture system. The first report of a negative culture is issued within 24 hours of receipt of the specimen in the laboratory. 2. Positive culture results are reported as soon as they are detected. 3. The most important factor for detection of microbes in the setting of bloodstream infection is the volume of blood submitted for culture. Failure to collect an optimal blood volume can result in false negative blood cultures. 4. For pediatric patients, the recommended blood volume to collect follows a weight based strategy. See the electronic test catalog for collection instructions. 5. For positive blood cultures, a rapid molecular test may be performed for organism identification using the [employer] blood culture identification panel for gram positive (BCID-GP) and gram negative (BCID-GN) organisms. This nucleic acid amplification test detects microbial DNA in positive blood culture broth. This assay has been cleared by the [place] Food and Drug Administration and its performance characteristics have been verified by the [facility]. For questions about this culture, contact the Microbiology Laboratory at [phone]. Interpretive data was last revised on 24. us Lee Elena MD LAB MICROBIOLOGY - GENERA L ORDERABLES Final Result Performing Organization Address City/[facility]/ZIP Co de Phone Number [facility] One [facility] [place] [address] * (ABNORMAL) Lactate (11/09/2024 1:30 AM CDT) Lactate 2.7(H) 0.7 - 2.0 mmol/L Blood 11/09/2024 1:30 AM CDT 11/09/2024 1:47 AM CDT us Lee Elena MD LAB BLOOD ORDERABLES Krystyna l Result [facility] One [facility] [place] [address] * (ABNORMAL) Blood culture Blood (11/09/2024 1:30 AM CDT) Direct Specimen Exam Stain: Gram Positive Cocci in clusters Time to culture positivity (aerobic media): 8.5 hours Time to culture positivity (anaerobic media): 12.9 hours Notification of: Gram Positive Cocci in clusters called to and read back by: Lee Elena MD [phone] on 11/09/2024 12:01:28 by: Chula Andujar MLS Direct Specimen Exam Molecular Analysis: Methicillin-suscep tible Staphylococcus aureus (MSSA) detected by the [employer] BCID-GP panel. This test does not exclude the possibility of a mixed bacterial infection. Notification of: Methicillin-suscep tible Staphylococcus aureus called to and read back by: Dr. Ash [place] [phone] on 11/09/2024 13:55:26 by: Ivanna Cruz [facility] Report Final Report: Staphylococcus aureus Methicillin susceptible (MSSA) by penicillin binding protein 2a (PBP2a) testing. (.) [facility] Organism STAPHYLOCOCCUS AUREUS [facility] Blood 11/09/2024 1:30 AM CDT 11/09/2024 2:13 AM CDT Narrative [facility] - 11/12/2024 10:17 AM CDT Collection->Peripheral 1. Blood cultures are incubated for 4 days on a continuously monitored blood culture system. The first report of a negative culture is issued within 24 hours of receipt of the specimen in the laboratory. 2. Positive culture results are reported as soon as they are detected. 3. The most important factor for detection of microbes in the setting of bloodstream infection is the volume of blood submitted for culture. Failure to collect an optimal blood volume can result in false negative blood cultures. 4. For pediatric patients, the recommended blood volume to collect follows a weight based strategy. See the electronic test catalog for collection instructions. 5. For positive blood cultures, a rapid molecular test may be performed for organism identification using the sherri ePlex blood culture identification panel for gram positive (BCID-GP) and gram negative (BCID-GN) organisms. This nucleic acid amplification test detects microbial DNA in positive blood culture broth. This assay has been cleared by the [place] Food and Drug Administration and its performance characteristics have been verified by the [facility]. For questions about this culture, contact the Microbiology Laboratory at [phone]. Interpretive data was last revised on 24. Organism Antibiotic Method Susceptibility Staphylococcus aureus Doxycycline (ROGER) INTERPRETATIO N Susceptible Staphylococcus aureus Linezolid (ROGER) INTERPRETATIO N Susceptible Staphylococcus aureus Trimethoprim with Sulfamethoxazole (ROGER) INTERPRETATION Susceptible Staphylococcus aureus Clindamycin (ROGER) INTERPRETATIO N Susceptible Staphylococcus aureus Erythromycin (ROGER) INTERPRETATIO N Susceptible Staphylococcus aureus Vancomycin (ROGER) INTERPRETATIO N Susceptible Staphylococcus aureus Oxacillin (ROGER) INTERPRETATIO N Susceptible Staphylococcus aureus Cefazolin (ROGER) INTERPRETATIO N Susceptible Staphylococcus aureus Ceftriaxone (ROGER) INTERPRETATIO N Susceptible us Lee Elena MD LAB MICROBIOLOGY - GENERA L ORDERABLES Final Result [facility] Department [place] [address] * (ABNORMAL) Protime-INR (11/09/2024 1:30 AM CDT) [facility] PT 18.4(H) 9.7 - 13.0 sec INR 1.69(H) 0.90 - 1.20 [facility] Comment: Interpretive data Oral anticoagulant therapeutic ranges: Venous thromboembolism prophylaxis or treatment: 2.0-3.0 CARDIOLOGY Standard range: 2.0-3.0 High-intensity range: 2.5-3.5 Refer to indication-specific guidelines for appropriate target ranges for prosthetic heart valve replacement. Current interpretive data was last revised on 2019. Blood 11/09/2024 1:30 AM CDT 11/09/2024 1:44 AM CDT us Juliano Arredondo MD LAB BLOOD ORDERABLE S Final Result [facility] Department [place] [address] * (ABNORMAL) CBC without differential (11/09/2024 1:30 AM CDT) WBC 5.79 3.80 - 9.90 K/cumm Hgb 7.7(L) 11.9 - 15.5 g/dL [facility] Comment:FIORDALIZA RODGERS RN Large delta with no apparant cause, correlate with clinical context and redraw if indicated. This result has been called to FIORDALIZA RODGERS RN by [id number] on 11/09/2024 02:26:21. Hct 21.2(L) 35.6 - 45.5 % [facility] Plt 152 150 - 400 K/cumm [facility] MPV 10.4 9.1 - 12.3 fL [facility] RBC 2.22(L) 3.90 - 5.20 M/cumm [facility] MCV 95.5 81.3 - 96.4 fL [facility] MCH 34.7(H) 27.1 - 33.3 pg [facility] MCHC 36.3(H) 32.3 - 35.7 g/dL [facility] RDW CV 16.7(H) 11.1 - 14.9 % [facility] RDW SD 57.2(H) 35.7 - 48.1 fL [facility] NRBC abs 0.00 0.00 - 0.01 K/cumm [facility] Blood 11/09/2024 1:30 AM CDT 11/09/2024 1:59 AM CDT Lee Elena MD LAB BLOOD ORDERABLES Krystyna l Result [facility] Department [place] [address] * POCT glucose (11/08/2024 11:56 PM CDT) Glucose, POC 120 70 - 199 mg/dL Blood 11/08/2024 11:5 6 PM CDT 11/08/2024 11:56 PM CDT Lee Elena MD LAB POCT ORDERABLES - DEV ICE Final Result Performing Organization Address [facility] Co de Phone Number [facility] Department [place] [address] * eGFR (11/08/2024 10:32 PM CDT) eGFR >90 >=60 mL/min/1. 73 m2 Comment: Interpretive Data Reference Interval Normal >/= 90 mL/min/1.73m2 Mildly decreased* 60 - 89 mL/min/1.73m2 Mildly to moderately decreased 45 - 59 mL/min/1.73m2 Moderately to severely decreased 30 - 44 mL/min/1.73m2 Severely decreased 15 - 29 mL/min/1.73m2 Kidney Failure < 15 mL/min/1.73m2 *Relative to young adult level Estimated glomerular filtration rate is determined by the 2020 CKD-EPI equation recommended by the National Kidney Foundation (A Unifying Approach to GFR Estimation: Recommendations of the NKF-ASK Task Force on Reassessing the Inclusion of Race in Diagnosing Kidney Disease, JASN 2020). The CKD-EPI equation should not be used for patients with unstable renal function and has not been validated in children and those over 70. Current interpretive data was last reviewed 2021. Blood 11/08/2024 10:3 2 PM CDT 11/08/2024 11:39 PM CDT Juliano Arredondo MD LAB BLOOD ORDERABLE S Final Result Performing Organization Address City/[facility]/ZIP Co de Phone Number [facility] [place] [address] * (ABNORMAL) Phosphorus (11/08/2024 10:32 PM CDT) Phosphorus, pl 1.7(L) 2.3 - 4.5 mg/dL Blood 11/08/2024 10:3 2 PM CDT 11/08/2024 11:39 PM CDT Juliano Arredondo MD LAB BLOOD ORDERABLE S Final Result Performing Organization Address [facility] Co de Phone Number [facility] [place] [address] * Magnesium (11/08/2024 10:32 PM CDT) Magnesium 1.7 1.4 - 2.5 mg/dL Blood 11/08/2024 10:3 2 PM CDT 11/08/2024 11:39 PM CDT Juliano Arredondo MD LAB BLOOD ORDERABLE S Final Result Performing Organization Address City/[facility] Co de Phone Number [facility] [place] [address] * (ABNORMAL) Hepatic function panel (11/08/2024 10:32 PM CDT) Bilirubin, total 1.7(H) 0.1 - 1.2 mg/dL Bilirubin, direct 1.4(H) 0.1 - 0.3 mg/dL [facility] Protein, pl 5.1(L) 6.5 - 8.5 g/dL [facility] Albumin 2.2(L) 3.5 - 5.0 g/dL [facility] Alk phos 138(H) 40 - 130 Units/L [facility] ALT 175(H) 7 - 45 Units/L [facility] AST 253(H) 10 - 45 Units/L [facility] Blood 11/08/2024 10:3 2 PM CDT 11/08/2024 11:39 PM CDT us Lee Elena MD LAB BLOOD ORDERABLES Krystyna l Result [facility] Department [place] [address] * (ABNORMAL) Basic metabolic panel (11/08/2024 10:32 PM CDT) Sodium 130(L) 135 - 145 mmol/L Potassium, pl 2.8(L) 3.3 - 4.9 mmol/L [facility] Chloride 93(L) 97 - 110 mmol/L [facility] CO2 26 22 - 32 mmol/L [facility] Anion gap 11 2 - 15 mmol/L [facility] BUN 11 6 - 25 mg/dL [facility] Creatinine 0.45(L) 0.60 - 1.10 mg/dL [facility] Glucose 106 70 - 199 mg/dL [facility] Comment: Interpretive Data Fasting glucose >/= 126 mg/dl is diagnostic for diabetes. Fasting is defined as no caloric intake for at least 8 hours. Fasting glucose between 100 mg/dl to 125 mg/dl is diagnostic of prediabetes. In a patient with classic symptoms of hyperglycemia or hyperglycemic crisis, a random glucose >/= 200 mg/dl is diagnostic for diabetes. In the absence of unequivocal hyperglycemia, results should be confirmed by repeat testing. The classification and Diagnosis of Diabetes Diabetes Care 2021; 46: S19-S40. Current interpretive data was last revised 2022. Calcium 7.6(L) 8.5 - 10.3 mg/dL [facility] Blood 11/08/2024 10:3 2 PM CDT 11/08/2024 11:39 PM CDT us Juliano Arredondo MD LAB BLOOD ORDERABLE S Final Result Performing Organization Address [facility] Co de Phone Number [facility] [place] [address] * POCT glucose (11/08/2024 7:33 PM CDT) Glucose, POC 118 70 - 199 mg/dL Blood 11/08/2024 7:33 PM CDT 11/08/2024 7:33 PM CDT Lee Elena MD LAB POCT ORDERABLES - DEV ICE Final Result Performing Organization Address [facility] de Phone Number [facility] [place] [address] * POCT glucose (11/08/2024 4:40 PM CDT) Glucose, POC 99 70 - 199 mg/dL Blood 11/08/2024 4:40 PM CDT 11/08/2024 4:40 PM CDT Lee Elena MD LAB POCT ORDERABLES - DEV ICE Final Result Performing Organization Address [facility] Co de Phone Number [facility] [place] [address] * POCT glucose (11/08/2024 7:51 AM CDT) Glucose, POC 97 70 - 199 mg/dL Blood 11/08/2024 7:51 AM CDT 11/08/2024 7:51 AM CDT Lee Elena MD LAB POCT ORDERABLES - DEV ICE Final Result Performing Organization Address [facility] Co de Phone Number [facility] [place] [address] * ECG 12 lead (11/08/2024 5:56 AM CDT) [facility] Ventricular Rate EKG/Min 129 BPM [facility] Atrial Rate [address] [facility] AR-Interval (MSEC) [address] [facility] QRS-Interval (MSEC) [address] [facility] QT-Interval (MSEC) 294 ms [facility] QTc [address] [facility] P Victoria 47 degrees [facility] R Victoria [address] [facility] T Victoria -[address] [facility] Diagnosis Sinus tachycardia T wave abnormality, consider anterior ischemia Abnormal ECG When compared with ECG of 06-NOV-2024 04:42, No significant change was found Confirmed by SHALINI RODRIGUEZ M.D ([id number]) on 11/08/2024 4:40:[address] [facility] 11/08/2024 5:56 AM CDT 11/08/2024 4:40 PM CDT Juliano Arredondo MD ECG ORDERABLES Fin al Result [facility] * POCT glucose (11/08/2024 4:16 AM CDT) Pathologist [facility] Glucose, POC 102 70 - 199 mg/dL Blood 11/08/2024 4:16 AM CDT 11/08/2024 4:16 AM CDT Lee Elena MD LAB POCT ORDERABLES - DEV ICE Final Result [facility] Department [place] [address] * (ABNORMAL) Differential, auto (11/08/2024 3:45 AM CDT) Pathologist [facility] Neutrophil abs 2.96 1.50 - 6.50 K/cumm Imm gran abs 0.01 0.00 - 0.10 K/cumm [facility] Lymphocyte abs 0.33(L) 0.80 - 3.30 K/cumm [facility] Monocyte abs 0.29 0.20 - 0.80 K/cumm [facility] Eosinophil abs 0.01 0.00 - 0.50 K/cumm [facility] Basophil abs 0.01 0.00 - 0.10 K/cumm [facility] Neutrophil pct 82.0 % [facility] Comment: Interpretive Data Percent cell count reference ranges are not reported, since discordance with absolute values may lead to misinterpretation of CBC data. Current Interpretive Data was last revised on 2017. Imm gran pct 0.3 % [facility] Comment: Interpretive Data Percent cell count reference ranges are not reported, since discordance with absolute values may lead to misinterpretation of CBC data. Current Interpretive Data was last revised on 2017. Lymphocyte pct 9.1 % [facility] Comment: Interpretive Data Percent cell count reference ranges are not reported, since discordance with absolute values may lead to misinterpretation of CBC data. Current Interpretive Data was last revised on 2017. Monocyte pct 8.0 % [facility] Comment: Interpretive Data Percent cell count reference ranges are not reported, since discordance with absolute values may lead to misinterpretation of CBC data. Current Interpretive Data was last revised on 2017. Eosinophil pct 0.3 % [facility] Comment: Interpretive Data Percent cell count reference ranges are not reported, since discordance with absolute values may lead to misinterpretation of CBC data. Current Interpretive Data was last revised on 2017. Basophil pct 0.3 % [facility] Comment: Interpretive Data Percent cell count reference ranges are not reported, since discordance with absolute values may lead to misinterpretation of CBC data. Current Interpretive Data was last revised on 2017. Blood 11/08/2024 3:45 AM CDT 11/08/2024 4:06 AM CDT us Lee Elena MD LAB BLOOD ORDERABLES Krystyna meyers Result [facility] Department [place] [address] * (ABNORMAL) Protime-INR (11/08/2024 3:45 AM CDT) Pathologist [facility] PT 14.7(H) 9.7 - 13.0 sec INR 1.35(H) 0.90 - 1.20 [facility] Comment: Interpretive data Oral anticoagulant therapeutic ranges: Venous thromboembolism prophylaxis or treatment: 2.0-3.0 CARDIOLOGY Standard range: 2.0-3.0 High-intensity range: 2.5-3.5 Refer to indication-specific guidelines for appropriate target ranges for prosthetic heart valve replacement. Current interpretive data was last revised on 2019. Blood 11/08/2024 3:45 AM CDT 11/08/2024 4:08 AM CDT us Juliano Arredondo MD LAB BLOOD ORDERABLE S Final Result [facility] Department [place] [address] * (ABNORMAL) CBC without differential (11/08/2024 3:45 AM CDT) Pathologist [facility] WBC 3.60(L) 3.80 - 9.90 K/cumm Hgb 11.0(L) 11.9 - 15.5 g/dL [facility] Hct 32.0(L) 35.6 - 45.5 % [facility] Plt 192 150 - 400 K/cumm [facility] MPV 11.0 9.1 - 12.3 fL [facility] RBC 3.19(L) 3.90 - 5.20 M/cumm [facility] MCV 100.3(H) 81.3 - 96.4 fL [facility] MCH 34.5(H) 27.1 - 33.3 pg [facility] MCHC 34.4 32.3 - 35.7 g/dL [facility] RDW CV 16.6(H) 11.1 - 14.9 % [facility] RDW SD 59.6(H) 35.7 - 48.1 fL [facility] NRBC abs 0.02(H) 0.00 - 0.01 K/cumm [facility] Blood 11/08/2024 3:45 AM CDT 11/08/2024 4:02 AM CDT Juliano Arredondo MD LAB BLOOD ORDERABLE S Final Result Performing Organization Address City/[facility] Co de Phone Number [facility] [place] [address] * POCT glucose (11/08/2024 1:29 AM CDT) Glucose, POC 110 70 - 199 mg/dL Blood 11/08/2024 1:29 AM CDT 11/08/2024 1:29 AM CDT Lee Elena MD LAB POCT ORDERABLES - DEV ICE Final Result Performing Organization Address City/[facility] Co de Phone Number [facility] [place] [address] * eGFR (11/07/2024 9:52 PM CDT) eGFR >90 >=60 mL/min/1. 73 m2 Comment: Interpretive Data Reference Interval Normal >/= 90 mL/min/1.73m2 Mildly decreased* 60 - 89 mL/min/1.73m2 Mildly to moderately decreased 45 - 59 mL/min/1.73m2 Moderately to severely decreased 30 - 44 mL/min/1.73m2 Severely decreased 15 - 29 mL/min/1.73m2 Kidney Failure < 15 mL/min/1.73m2 *Relative to young adult level Estimated glomerular filtration rate is determined by the 2020 CKD-EPI equation recommended by the National Kidney Foundation (A Unifying Approach to GFR Estimation: Recommendations of the NKF-ASK Task Force on Reassessing the Inclusion of Race in Diagnosing Kidney Disease, JASN 2020). The CKD-EPI equation should not be used for patients with unstable renal function and has not been validated in children and those over 70. Current interpretive data was last reviewed 2021. Blood 11/07/2024 9:52 PM CDT 11/07/2024 10:37 PM CDT us Juliano Arredondo MD LAB BLOOD ORDERABLE S Final Result Performing Organization Address [facility] Co de Phone Number [facility] [place] [address] * Phosphorus (11/07/2024 9:52 PM CDT) Phosphorus, pl 2.8 2.3 - 4.5 mg/dL Blood 11/07/2024 9:52 PM CDT 11/07/2024 10:37 PM CDT Juliano Arredondo MD LAB BLOOD ORDERABLE S Final Result Performing Organization Address [facility] de Phone Number [facility] [place] [address] * Magnesium (11/07/2024 9:52 PM CDT) Magnesium 2.4 1.4 - 2.5 mg/dL Blood 11/07/2024 9:52 PM CDT 11/07/2024 10:37 PM CDT Result [facility] Juliano Arredondo MD LAB BLOOD ORDERABLE S Final Result Performing Organization Address [facility] de Phone Number [facility] [place] [address] * (ABNORMAL) Hepatic function panel (11/07/2024 9:52 PM CDT) Bilirubin, total 2.1(H) 0.1 - 1.2 mg/dL Bilirubin, direct 1.5(H) 0.1 - 0.3 mg/dL [facility] Protein, pl 6.3(L) 6.5 - 8.5 g/dL [facility] Albumin 2.6(L) 3.5 - 5.0 g/dL [facility] Alk phos 265(H) 40 - 130 Units/L [facility] ALT 315(H) 7 - 45 Units/L [facility] AST 670(H) 10 - 45 Units/L [facility] Comment:Reviewed Blood 11/07/2024 9:52 PM CDT 11/07/2024 10:37 PM CDT us Lee Elena MD LAB BLOOD ORDERABLES Krystyna l Result [facility] [place] [address] * (ABNORMAL) Basic metabolic panel (11/07/2024 9:52 PM CDT) Sodium 134(L) 135 - 145 mmol/L Potassium, pl 3.7 3.3 - 4.9 mmol/L [facility] Chloride 95(L) 97 - 110 mmol/L [facility] CO2 24 22 - 32 mmol/L [facility] Anion gap 15 2 - 15 mmol/L [facility] BUN 7 6 - 25 mg/dL [facility] Creatinine 0.39(L) 0.60 - 1.10 mg/dL [facility] Glucose 113 70 - 199 mg/dL [facility] Comment: Interpretive Data Fasting glucose >/= 126 mg/dl is diagnostic for diabetes. Fasting is defined as no caloric intake for at least 8 hours. Fasting glucose between 100 mg/dl to 125 mg/dl is diagnostic of prediabetes. In a patient with classic symptoms of hyperglycemia or hyperglycemic crisis, a random glucose >/= 200 mg/dl is diagnostic for diabetes. In the absence of unequivocal hyperglycemia, results should be confirmed by repeat testing. The classification and Diagnosis of Diabetes Diabetes Care 202; 46: S19-S40. Current interpretive data was last revised 2022. Calcium 8.6 8.5 - 10.3 mg/dL [facility] Blood 11/07/2024 9:52 PM CDT 11/07/2024 10:37 PM CDT Juliano Arredondo MD LAB BLOOD ORDERABLE S Final Result Performing Organization Address [facility] de Phone Number [facility] [place] [address] * POCT glucose (11/07/2024 7:49 PM CDT) Glucose, POC 123 70 - 199 mg/dL Blood 11/07/2024 7:49 PM CDT 11/07/2024 7:49 PM CDT us Lee Elena MD LAB POCT ORDERABLES - DEV ICE Final Result Performing Organization Address [facility] de Phone Number [facility] [place] [address] * POCT glucose (11/07/2024 4:53 PM CDT) Glucose, POC 115 70 - 199 mg/dL Blood 11/07/2024 4:53 PM CDT 11/07/2024 4:53 PM CDT us Lee Elena MD LAB POCT ORDERABLES - DEV ICE Final Result Performing Organization Address [facility] de Phone Number [facility] [place] [address] * POCT glucose (11/07/2024 11:13 AM CDT) Glucose, POC 150 70 - 199 mg/dL Blood 11/07/2024 11:1 3 AM CDT 11/07/2024 11:13 AM CDT Lee Elena MD LAB POCT ORDERABLES - DEV ICE Final Result Performing Organization Address [facility]/State/ZIP Co de Phone Number [facility] [place] [address] * eGFR (11/07/2024 10:19 AM CDT) eGFR >90 >=60 mL/min/1. 73 m2 Comment: Interpretive Data Reference Interval Normal >/= 90 mL/min/1.73m2 Mildly decreased* 60 - 89 mL/min/1.73m2 Mildly to moderately decreased 45 - 59 mL/min/1.73m2 Moderately to severely decreased 30 - 44 mL/min/1.73m2 Severely decreased 15 - 29 mL/min/1.73m2 Kidney Failure < 15 mL/min/1.73m2 *Relative to young adult level Estimated glomerular filtration rate is determined by the 2020 CKD-EPI equation recommended by the National Kidney Foundation (A Unifying Approach to GFR Estimation: Recommendations of the NKF-ASK Task Force on Reassessing the Inclusion of Race in Diagnosing Kidney Disease, JASN 2020). The CKD-EPI equation should not be used for patients with unstable renal function and has not been validated in children and those over 70. Current interpretive data was last reviewed 2021. Blood 11/07/2024 10:1 9 AM CDT 11/07/2024 11:22 AM CDT us Juliano Arredondo MD LAB BLOOD ORDERABLE S Final Result Performing Organization Address [facility] Co de Phone Number [facility] [place] [address] * Phosphorus (11/07/2024 10:19 AM CDT) Phosphorus, pl 3.5 2.3 - 4.5 mg/dL Blood 11/07/2024 10:1 9 AM CDT 11/07/2024 11:22 AM CDT us Juliano Arredondo MD LAB BLOOD ORDERABLE S Final Result Performing Organization Address City/State/[facility] Co de Phone Number [facility] [place] [address] * Magnesium (11/07/2024 10:19 AM CDT) Pathologist [facility] Magnesium 1.5 1.4 - 2.5 mg/dL Blood 11/07/2024 10:1 9 AM CDT 11/07/2024 11:22 AM CDT Juliano Arredondo MD LAB BLOOD ORDERABLE S Final Result [facility] [place] [address] * (ABNORMAL) Basic metabolic panel (11/07/2024 10:19 AM CDT) [facility] Sodium 137 135 - 145 mmol/L Potassium, pl 3.8 3.3 - 4.9 mmol/L [facility] Chloride 99 97 - 110 mmol/L [facility] CO2 26 22 - 32 mmol/L [facility] Anion gap 12 2 - 15 mmol/L [facility] BUN 6 6 - 25 mg/dL [facility] Creatinine 0.37(L) 0.60 - 1.10 mg/dL [facility] Glucose 127 70 - 199 mg/dL [facility] Comment: Interpretive Data Fasting glucose >/= 126 mg/dl is diagnostic for diabetes. Fasting is defined as no caloric intake for at least 8 hours. Fasting glucose between 100 mg/dl to 125 mg/dl is diagnostic of prediabetes. In a patient with classic symptoms of hyperglycemia or hyperglycemic crisis, a random glucose >/= 200 mg/dl is diagnostic for diabetes. In the absence of unequivocal hyperglycemia, results should be confirmed by repeat testing. The classification and Diagnosis of Diabetes Diabetes Care 2021; 46: S19-S40. Current interpretive data was last revised 2022. Calcium 8.2(L) 8.5 - 10.3 mg/dL [facility] Blood 11/07/2024 10:1 9 AM CDT 11/07/2024 11:22 AM CDT Juliano Arredondo MD LAB BLOOD ORDERABLE S Final Result Performing Organization Address City/[facility] Co de Phone Number [facility] [facility] [place] [address] * POCT glucose (11/07/2024 7:34 AM CDT) Pathologist [facility] [place] Glucose, POC 129 70 - 199 mg/dL Blood 11/07/2024 7:34 AM CDT 11/07/2024 7:34 AM CDT Lee Elena MD LAB POCT ORDERABLES - DEV ICE Final Result Performing Organization Address [facility] [place] [address] * Protime-INR (11/07/2024 4:47 AM CDT) [facility] PT 11.1 9.7 - 13.0 sec INR 1.03 0.90 - 1.20 [facility] Comment: Interpretive data Oral anticoagulant therapeutic ranges: Venous thromboembolism prophylaxis or treatment: 2.0-3.0 CARDIOLOGY Standard range: 2.0-3.0 High-intensity range: 2.5-3.5 Refer to indication-specific guidelines for appropriate target ranges for prosthetic heart valve replacement. Current interpretive data was last revised on 2019. Blood 11/07/2024 4:47 AM CDT 11/07/2024 5:37 AM CDT Juliano Arredondo MD LAB BLOOD ORDERABLE S Final Result Performing Organization Address [facility] Co de Phone Number [facility] [place] [address] * (ABNORMAL) CBC without differential (11/07/2024 4:47 AM CDT) [facility] WBC 5.50 3.80 - 9.90 K/cumm Hgb 9.4(L) 11.9 - 15.5 g/dL [facility] Hct 28.0(L) 35.6 - 45.5 % [facility] Plt 150 150 - 400 K/cumm [facility] MPV 11.0 9.1 - 12.3 fL [facility] RBC 2.73(L) 3.90 - 5.20 M/cumm [facility] MCV 102.6(H) 81.3 - 96.4 fL [facility] MCH 34.4(H) 27.1 - 33.3 pg [facility] MCHC 33.6 32.3 - 35.7 g/dL [facility] RDW CV 16.1(H) 11.1 - 14.9 % [facility] RDW SD 59.1(H) 35.7 - 48.1 fL [facility] NRBC abs 0.00 0.00 - 0.01 K/cumm [facility] Blood 11/07/2024 4:47 AM CDT 11/07/2024 4:57 AM CDT us Juliano Arredondo MD LAB BLOOD ORDERABLE S Final Result [facility] Department [place] [address] * (ABNORMAL) Hepatic function panel (11/07/2024 4:47 AM CDT) [facility] Bilirubin, total 1.6(H) 0.1 - 1.2 mg/dL Bilirubin, direct 1.0(H) 0.1 - 0.3 mg/dL [facility] Protein, pl 5.4(L) 6.5 - 8.5 g/dL [facility] Albumin 2.4(L) 3.5 - 5.0 g/dL [facility] Alk phos 271(H) 40 - 130 Units/L [facility] ALT 250(H) 7 - 45 Units/L [facility] AST 137(H) 10 - 45 Units/L [facility] Blood 11/07/2024 4:47 AM CDT 11/07/2024 4:56 AM CDT Juliano Arredondo MD LAB BLOOD ORDERABLE S Final Result Performing Organization Address City/[facility] Co de Phone Number [facility] [place] [address] * POCT glucose (11/07/2024 4:29 AM CDT) Glucose, POC 133 70 - 199 mg/dL Blood 11/07/2024 4:29 AM CDT 11/07/2024 4:29 AM CDT Lee Elena MD LAB POCT ORDERABLES - DEV ICE Final Result Performing Organization Address City/[facility] Co de Phone Number [facility] [place] [address] * eGFR (11/06/2024 9:12 PM CDT) eGFR >90 >=60 mL/min/1. 73 m2 Comment: Interpretive Data Reference Interval Normal >/= 90 mL/min/1.73m2 Mildly decreased* 60 - 89 mL/min/1.73m2 Mildly to moderately decreased 45 - 59 mL/min/1.73m2 Moderately to severely decreased 30 - 44 mL/min/1.73m2 Severely decreased 15 - 29 mL/min/1.73m2 Kidney Failure < 15 mL/min/1.73m2 *Relative to young adult level Estimated glomerular filtration rate is determined by the 2020 CKD-EPI equation recommended by the National Kidney Foundation (A Unifying Approach to GFR Estimation: Recommendations of the NKF-ASK Task Force on Reassessing the Inclusion of Race in Diagnosing Kidney Disease, JASN 2020). The CKD-EPI equation should not be used for patients with unstable renal function and has not been validated in children and those over 70. Current interpretive data was last reviewed 2021. Blood 11/06/2024 9:12 PM CDT 11/06/2024 9:53 PM CDT us Juliano Arredondo MD LAB BLOOD ORDERABLE S Final Result Performing Organization Address City/[facility] Co de Phone Number [facility] [place] [address] * Phosphorus (11/06/2024 9:12 PM CDT) Pathologist [facility] Phosphorus, pl 3.3 2.3 - 4.5 mg/dL Blood 11/06/2024 9:12 PM CDT 11/06/2024 9:53 PM CDT Juliano Arredondo MD LAB BLOOD ORDERABLE S Final Result Performing Organization Address [facility] de Phone Number [facility] [place] [address] * Magnesium (11/06/2024 9:12 PM CDT) [facility] Magnesium 2.2 1.4 - 2.5 mg/dL Blood 11/06/2024 9:12 PM CDT 11/06/2024 9:53 PM CDT Juliano Arredondo MD LAB BLOOD ORDERABLE S Final Result Performing Organization Address [facility] de Phone Number [facility] [place] [address] * (ABNORMAL) Basic metabolic panel (11/06/2024 9:12 PM CDT) Pathologist [facility] Sodium 135 135 - 145 mmol/L Potassium, pl 4.5 3.3 - 4.9 mmol/L [facility] Chloride 100 97 - 110 mmol/L [facility] CO2 27 22 - 32 mmol/L [facility] Anion gap 8 2 - 15 mmol/L [facility] BUN 4(L) 6 - 25 mg/dL [facility] Creatinine 0.36(L) 0.60 - 1.10 mg/dL [facility] Glucose 106 70 - 199 mg/dL [facility] Comment: Interpretive Data Fasting glucose >/= 126 mg/dl is diagnostic for diabetes. Fasting is defined as no caloric intake for at least 8 hours. Fasting glucose between 100 mg/dl to 125 mg/dl is diagnostic of prediabetes. In a patient with classic symptoms of hyperglycemia or hyperglycemic crisis, a random glucose >/= 200 mg/dl is diagnostic for diabetes. In the absence of unequivocal hyperglycemia, results should be confirmed by repeat testing. The classification and Diagnosis of Diabetes Diabetes Care 202; 46: S19-S40. Current interpretive data was last revised 2022. Calcium 8.1(L) 8.5 - 10.3 mg/dL [facility] Blood 11/06/2024 9:12 PM CDT 11/06/2024 9:53 PM CDT us Juliano Arredondo MD LAB BLOOD ORDERABLE S Final Result [facility] [place] [address] * POCT glucose (11/06/2024 8:41 PM CDT) Glucose, POC 112 70 - 199 mg/dL Blood 11/06/2024 8:41 PM CDT 11/06/2024 8:41 PM CDT us Lee Elena MD LAB POCT ORDERABLES - DEV ICE Final Result [facility] [place] [address] * eGFR (11/06/2024 3:51 PM CDT) eGFR >90 >=60 mL/min/1. 73 m2 Comment: Interpretive Data Reference Interval Normal >/= 90 mL/min/1.73m2 Mildly decreased* 60 - 89 mL/min/1.73m2 Mildly to moderately decreased 45 - 59 mL/min/1.73m2 Moderately to severely decreased 30 - 44 mL/min/1.73m2 Severely decreased 15 - 29 mL/min/1.73m2 Kidney Failure < 15 mL/min/1.73m2 *Relative to young adult level Estimated glomerular filtration rate is determined by the 2020 CKD-EPI equation recommended by the National Kidney Foundation (A Unifying Approach to GFR Estimation: Recommendations of the NKF-ASK Task Force on Reassessing the Inclusion of Race in Diagnosing Kidney Disease, JASN 2020). The CKD-EPI equation should not be used for patients with unstable renal function and has not been validated in children and those over 70. Current interpretive data was last reviewed 2021. Blood 11/06/2024 3:51 PM CDT 11/06/2024 4:30 PM CDT us Mar George MD LAB BLOOD OR DERABLES Final Result [facility] [place] [address] * Phosphorus (11/06/2024 3:51 PM CDT) Phosphorus, pl 3.4 2.3 - 4.5 mg/dL Blood 11/06/2024 3:51 PM CDT 11/06/2024 4:30 PM CDT Mar George MD LAB BLOOD OR DERABLES Final Result [facility] [place] [address] * (ABNORMAL) Magnesium (11/06/2024 3:51 PM CDT) Magnesium 3.1(H) 1.4 - 2.5 mg/dL Blood 11/06/2024 3:51 PM CDT 11/06/2024 4:30 PM CDT Mar George MD LAB BLOOD OR DERABLES Final Result Performing Organization Address [facility] Co de Phone Number [facility] [place] [address] * (ABNORMAL) Hepatic function panel (11/06/2024 3:51 PM CDT) Bilirubin, total 1.3(H) 0.1 - 1.2 mg/dL Bilirubin, direct 0.6(H) 0.1 - 0.3 mg/dL [facility] Comment:Hemolyzed; result ma y be falsely decreased Protein, pl 4.9(L) 6.5 - 8.5 g/dL [facility] Albumin 2.1(L) 3.5 - 5.0 g/dL [facility] Alk phos 252(H) 40 - 130 Units/L [facility] ALT 243(H) 7 - 45 Units/L [facility] AST 150(H) 10 - 45 Units/L [facility] Comment:Hemolyzed; result ma y be falsely elevated Blood 11/06/2024 3:51 PM CDT 11/06/2024 4:30 PM CDT Juliano Arredondo MD LAB BLOOD ORDERABLE S Final Result Performing Organization Address [facility] Co de Phone Number [facility] [place] [address] * (ABNORMAL) Basic metabolic panel (11/06/2024 3:51 PM CDT) Sodium 133(L) 135 - 145 mmol/L Potassium, pl 5.1(H) 3.3 - 4.9 mmol/L [facility] Comment:Hemolyzed; Potassium value may be falsely elevated by as much as 0.3-0.5 mmol/L. Suggest redraw and reanalysis. Chloride 98 97 - 110 mmol/L [facility] CO2 27 22 - 32 mmol/L [facility] Anion gap 8 2 - 15 mmol/L [facility] BUN 3(L) 6 - 25 mg/dL [facility] Creatinine 0.34(L) 0.60 - 1.10 mg/dL [facility] Glucose 129 70 - 199 mg/dL [facility] Comment: Interpretive Data Fasting glucose >/= 126 mg/dl is diagnostic for diabetes. Fasting is defined as no caloric intake for at least 8 hours. Fasting glucose between 100 mg/dl to 125 mg/dl is diagnostic of prediabetes. In a patient with classic symptoms of hyperglycemia or hyperglycemic crisis, a random glucose >/= 200 mg/dl is diagnostic for diabetes. In the absence of unequivocal hyperglycemia, results should be confirmed by repeat testing. The classification and Diagnosis of Diabetes Diabetes Care 2021; 46: S19-S40. Current interpretive data was last revised 2022. Calcium 7.8(L) 8.5 - 10.3 mg/dL [facility] Blood 11/06/2024 3:51 PM CDT 11/06/2024 4:30 PM CDT us Mar George MD LAB BLOOD OR DERABLES Final Result Performing Organization Address City/[facility]/ZIP Co de Phone Number [facility] [place] [address] * POCT glucose (11/06/2024 3:50 PM CDT) [facility] Signature Glucose, POC 139 70 - 199 mg/dL Blood 11/06/2024 3:50 PM CDT 11/06/2024 3:50 PM CDT us Juliano Arredondo MD LAB POCT ORDERABLES - DEVICE Final Result Performing Organization Address City/[facility]/ZIP Co de Phone Number [facility] [place] [address] * POCT glucose (11/06/2024 11:49 AM CDT) Glucose, POC 151 70 - 199 mg/dL Blood 11/06/2024 11:4 9 AM CDT 11/06/2024 11:49 AM CDT Juliano Arredondo MD LAB POCT ORDERABLES - DEVICE Final Result [facility] [place] [address] * POCT glucose (11/06/2024 7:55 AM CDT) Glucose, POC 126 70 - 199 mg/dL Blood 11/06/2024 7:55 AM CDT 11/06/2024 7:55 AM CDT Juliano Arredondo MD LAB POCT ORDERABLES - DEVICE Final Result Performing Organization Address City/[facility] [place] [address] * eGFR (11/06/2024 5:38 AM CDT) eGFR >90 >=60 mL/min/1. 73 m2 Comment: Interpretive Data Reference Interval Normal >/= 90 mL/min/1.73m2 Mildly decreased* 60 - 89 mL/min/1.73m2 Mildly to moderately decreased 45 - 59 mL/min/1.73m2 Moderately to severely decreased 30 - 44 mL/min/1.73m2 Severely decreased 15 - 29 mL/min/1.73m2 Kidney Failure < 15 mL/min/1.73m2 *Relative to young adult level Estimated glomerular filtration rate is determined by the 2020 CKD-EPI equation recommended by the National Kidney Foundation (A Unifying Approach to GFR Estimation: Recommendations of the NKF-ASK Task Force on Reassessing the Inclusion of Race in Diagnosing Kidney Disease, JASN 2021). The CKD-EPI equation should not be used for patients with unstable renal function and has not been validated in children and those over 70. Current interpretive data was last reviewed 2021. Blood 11/06/2024 5:38 AM CDT 11/06/2024 5:57 AM CDT aMr George MD LAB BLOOD OR DERABLES Final Result Performing Organization Address [facility] de Phone Number [facility] [place] [address] * Protime-INR (11/06/2024 5:38 AM CDT) PT 10.6 9.7 - 13.0 sec INR 0.98 0.90 - 1.20 [facility] Comment: Interpretive data Oral anticoagulant therapeutic ranges: Venous thromboembolism prophylaxis or treatment: 2.0-3.0 CARDIOLOGY Standard range: 2.0-3.0 High-intensity range: 2.5-3.5 Refer to indication-specific guidelines for appropriate target ranges for prosthetic heart valve replacement. Current interpretive data was last revised on 2019. Blood 11/06/2024 5:38 AM CDT 11/06/2024 5:58 AM CDT Result [facility] Juliano Arredondo MD LAB BLOOD ORDERABLE S Final Result Performing Organization Address [facility] de Phone Number [facility] [place] [address] * (ABNORMAL) CBC without differential (11/06/2024 5:38 AM CDT) WBC 3.46(L) 3.80 - 9.90 K/cumm Hgb 9.1(L) 11.9 - 15.5 g/dL [facility] Hct 26.1(L) 35.6 - 45.5 % [facility] Plt 146(L) 150 - 400 K/cumm [facility] MPV 10.2 9.1 - 12.3 fL [facility] RBC 2.58(L) 3.90 - 5.20 M/cumm [facility] MCV 101.2(H) 81.3 - 96.4 fL [facility] MCH 35.3(H) 27.1 - 33.3 pg [facility] MCHC 34.9 32.3 - 35.7 g/dL [facility] RDW CV 15.9(H) 11.1 - 14.9 % [facility] RDW SD 58.6(H) 35.7 - 48.1 fL [facility] NRBC abs 0.00 0.00 - 0.01 K/cumm [facility] Blood 11/06/2024 5:38 AM CDT 11/06/2024 5:57 AM CDT us Juliano Arredondo MD LAB BLOOD ORDERABLE S Final Result [facility] [place] [address] * Phosphorus (11/06/2024 5:38 AM CDT) Phosphorus, pl 3.0 2.3 - 4.5 mg/dL Blood 11/06/2024 5:38 AM CDT 11/06/2024 5:57 AM CDT us Mra George MD LAB BLOOD OR DERABLES Final Result [facility] [place] [address] * Magnesium (11/06/2024 5:38 AM CDT) Magnesium 1.7 1.4 - 2.5 mg/dL Blood 11/06/2024 5:38 AM CDT 11/06/2024 5:57 AM CDT us Mar George MD LAB BLOOD OR DERABLES Final Result Performing Organization Address City/[facility]/ZIP Co de Phone Number [facility] [place] [address] * (ABNORMAL) Hepatic function panel (11/06/2024 5:38 AM CDT) Bilirubin, total 1.3(H) 0.1 - 1.2 mg/dL Bilirubin, direct 1.0(H) 0.1 - 0.3 mg/dL [facility] Protein, pl 5.1(L) 6.5 - 8.5 g/dL [facility] Albumin 2.4(L) 3.5 - 5.0 g/dL [facility] Alk phos 291(H) 40 - 130 Units/L [facility] ALT 295(H) 7 - 45 Units/L [facility] AST 201(H) 10 - 45 Units/L [facility] Blood 11/06/2024 5:38 AM CDT 11/06/2024 5:57 AM CDT us Juliano Arredondo MD LAB BLOOD ORDERABLE S Final Result Performing Organization Address [facility] Co de Phone Number [facility] [place] [address] * (ABNORMAL) Basic metabolic panel (11/06/2024 5:38 AM CDT) Sodium 139 135 - 145 mmol/L Potassium, pl 4.4 3.3 - 4.9 mmol/L [facility] Chloride 102 97 - 110 mmol/L [facility] CO2 28 22 - 32 mmol/L [facility] Anion gap 9 2 - 15 mmol/L [facility] BUN 2(L) 6 - 25 mg/dL [facility] Creatinine 0.37(L) 0.60 - 1.10 mg/dL [facility] Glucose 104 70 - 199 mg/dL [facility] Comment: Interpretive Data Fasting glucose >/= 126 mg/dl is diagnostic for diabetes. Fasting is defined as no caloric intake for at least 8 hours. Fasting glucose between 100 mg/dl to 125 mg/dl is diagnostic of prediabetes. In a patient with classic symptoms of hyperglycemia or hyperglycemic crisis, a random glucose >/= 200 mg/dl is diagnostic for diabetes. In the absence of unequivocal hyperglycemia, results should be confirmed by repeat testing. The classification and Diagnosis of Diabetes Diabetes Care 2021; 46: S19-S40. Current interpretive data was last revised 2022. Calcium 8.3(L) 8.5 - 10.3 mg/dL [facility] Blood 11/06/2024 5:38 AM CDT 11/06/2024 5:57 AM CDT us Mar George MD LAB BLOOD OR DERABLES Final Result [facility] [place] [address] * ECG 12 lead (11/06/2024 4:42 AM CDT) [facility] Ventricular Rate EKG/Min 93 BPM [facility] Atrial Rate [address] [facility] AR-Interval (MSEC) [address] [facility] QRS-Interval (MSEC) 76 ms [facility] QT-Interval (MSEC) 356 ms [facility] QTc 442 ms [facility] P [place] 56 degrees [facility] R [place] [address] [facility] T [place] [address] [facility] Diagnosis Sinus rhythm with short AR Nonspecific T wave abnormality Abnormal ECG When compared with ECG of 05-NOV-2024 12:04, No significant change was found Confirmed by SHALINI RODRIGUEZ M.D ([id number]) on 11/06/2024 1:44:[address] [facility] 11/06/2024 4:42 AM CDT 11/06/2024 1:44 PM CDT us Juliano Arredondo MD ECG ORDERABLES Fin al Result [facility] * POCT glucose (11/06/2024 3:46 AM CDT) Glucose, POC 113 70 - 199 mg/dL Blood 11/06/2024 3:46 AM CDT 11/06/2024 3:46 AM CDT us Juliano Arredondo MD LAB POCT ORDERABLES - DEVICE Final Result Performing Organization Address City/[facility]/ZIP Co de Phone Number [facility] [place] [address] * eGFR (11/06/2024 12:39 AM CDT) eGFR >90 >=60 mL/min/1. 73 m2 Comment: Interpretive Data Reference Interval Normal >/= 90 mL/min/1.73m2 Mildly decreased* 60 - 89 mL/min/1.73m2 Mildly to moderately decreased 45 - 59 mL/min/1.73m2 Moderately to severely decreased 30 - 44 mL/min/1.73m2 Severely decreased 15 - 29 mL/min/1.73m2 Kidney Failure < 15 mL/min/1.73m2 *Relative to young adult level Estimated glomerular filtration rate is determined by the 2020 CKD-EPI equation recommended by the National Kidney Foundation (A Unifying Approach to GFR Estimation: Recommendations of the NKF-ASK Task Force on Reassessing the Inclusion of Race in Diagnosing Kidney Disease, JASN 2020). The CKD-EPI equation should not be used for patients with unstable renal function and has not been validated in children and those over 70. Current interpretive data was last reviewed 2021. Blood 11/06/2024 12:3 9 AM CDT 11/06/2024 12:57 AM CDT us Mar George MD LAB BLOOD OR DERABLES Final Result [facility] [place] [address] * Phosphorus (11/06/2024 12:39 AM CDT) Pathologist [facility] Phosphorus, pl 2.9 2.3 - 4.5 mg/dL Blood 11/06/2024 12:3 9 AM CDT 11/06/2024 12:57 AM CDT Mar George MD LAB BLOOD OR [place]AB[place] [address] * Magnesium (11/06/2024 12:39 AM CDT) [facility] Magnesium 2.4 1.4 - 2.5 mg/dL Blood 11/06/2024 12:3 9 AM CDT 11/06/2024 12:57 AM CDT Mar George MD LAB BLOOD OR [place]AB[place] [address] * (ABNORMAL) Basic metabolic panel (11/06/2024 12:39 AM CDT) Pathologist [facility] Sodium 139 135 - 145 mmol/L Potassium, pl 4.2 3.3 - 4.9 mmol/L [facility] Chloride 103 97 - 110 mmol/L [facility] CO2 28 22 - 32 mmol/L [facility] Anion gap 8 2 - 15 mmol/L [facility] BUN 2(L) 6 - 25 mg/dL [facility] Creatinine 0.37(L) 0.60 - 1.10 mg/dL [facility] Glucose 110 70 - 199 mg/dL [facility] Comment: Interpretive Data Fasting glucose >/= 126 mg/dl is diagnostic for diabetes. Fasting is defined as no caloric intake for at least 8 hours. Fasting glucose between 100 mg/dl to 125 mg/dl is diagnostic of prediabetes. In a patient with classic symptoms of hyperglycemia or hyperglycemic crisis, a random glucose >/= 200 mg/dl is diagnostic for diabetes. In the absence of unequivocal hyperglycemia, results should be confirmed by repeat testing. The classification and Diagnosis of Diabetes Diabetes Care 2021; 46: S19-S40. Current interpretive data was last revised 2022. Calcium 8.4(L) 8.5 - 10.3 mg/dL [facility] Blood 11/06/2024 12:3 9 AM CDT 11/06/2024 12:57 AM CDT Mar George MD LAB BLOOD OR DERABLES Final Result Performing Organization Address [facility] Co de Phone Number [facility] [place] [address] * POCT glucose (11/05/2024 11:37 PM CDT) Glucose, POC 150 70 - 199 mg/dL Blood 11/05/2024 11:3 7 PM CDT 11/05/2024 11:37 PM CDT Juliano Arredondo MD LAB POCT ORDERABLES - DEVICE Final Result Performing Organization Address City/[facility] Co de Phone Number [facility] [place] [address] * POCT glucose (11/05/2024 8:03 PM CDT) Glucose, POC 138 70 - 199 mg/dL Blood 11/05/2024 8:03 PM CDT 11/05/2024 8:03 PM CDT Juliano Arredondo MD LAB POCT ORDERABLES - DEVICE Final Result Performing Organization Address [facility] Co de Phone Number [facility] [place] [address] * eGFR (11/05/2024 3:44 PM CDT) eGFR >90 >=60 mL/min/1. 73 m2 Comment: Interpretive Data Reference Interval Normal >/= 90 mL/min/1.73m2 Mildly decreased* 60 - 89 mL/min/1.73m2 Mildly to moderately decreased 45 - 59 mL/min/1.73m2 Moderately to severely decreased 30 - 44 mL/min/1.73m2 Severely decreased 15 - 29 mL/min/1.73m2 Kidney Failure < 15 mL/min/1.73m2 *Relative to young adult level Estimated glomerular filtration rate is determined by the 2020 CKD-EPI equation recommended by the National Kidney Foundation (A Unifying Approach to GFR Estimation: Recommendations of the NKF-ASK Task Force on Reassessing the Inclusion of Race in Diagnosing Kidney Disease, JASN 2020). The CKD-EPI equation should not be used for patients with unstable renal function and has not been validated in children and those over 70. Current interpretive data was last reviewed 2021. Blood 11/05/2024 3:44 PM CDT 11/05/2024 3:58 PM CDT us Mar George MD LAB BLOOD OR DERABLES Final Result [facility] [place] [address] * Phosphorus (11/05/2024 3:44 PM CDT) Pathologist [facility] Phosphorus, pl 3.1 2.3 - 4.5 mg/dL Blood 11/05/2024 3:44 PM CDT 11/05/2024 3:58 PM CDT Mar George MD LAB BLOOD OR DERABLES Final Result [facility] [place] [address] * Magnesium (11/05/2024 3:44 PM CDT) [facility] Magnesium 1.7 1.4 - 2.5 mg/dL Blood 11/05/2024 3:44 PM CDT 11/05/2024 3:58 PM CDT us Mar George MD LAB BLOOD OR DERABLES Final Result [place], [place] [id number] * (ABNORMAL) Hepatic function panel (11/05/2024 3:44 PM CDT) [facility] Bilirubin, total 1.2 0.1 - 1.2 mg/dL Bilirubin, direct 0.7(H) 0.1 - 0.3 mg/dL [facility] Protein, pl 4.8(L) 6.5 - 8.5 g/dL [facility] Albumin 2.0(L) 3.5 - 5.0 g/dL [facility] Alk phos 256(H) 40 - 130 Units/L [facility] ALT 337(H) 7 - 45 Units/L [facility] AST 277(H) 10 - 45 Units/L [facility] Blood 11/05/2024 3:44 PM CDT 11/05/2024 3:58 PM CDT us Juliano Arredondo MD LAB BLOOD ORDERABLE S Final Result [facility] Department of Laboratories [place], [place] [id number] * (ABNORMAL) Basic metabolic panel (11/05/2024 3:44 PM CDT) [facility] Sodium 136 135 - 145 mmol/L Potassium, pl 3.8 3.3 - 4.9 mmol/L [facility] Chloride 101 97 - 110 mmol/L [facility] CO2 26 22 - 32 mmol/L [facility] Anion gap 9 2 - 15 mmol/L [facility] BUN 2(L) 6 - 25 mg/dL [facility] Creatinine 0.35(L) 0.60 - 1.10 mg/dL [facility] Glucose 110 70 - 199 mg/dL [facility] Comment: Interpretive Data Fasting glucose >/= 126 mg/dl is diagnostic for diabetes. Fasting is defined as no caloric intake for at least 8 hours. Fasting glucose between 100 mg/dl to 125 mg/dl is diagnostic of prediabetes. In a patient with classic symptoms of hyperglycemia or hyperglycemic crisis, a random glucose >/= 200 mg/dl is diagnostic for diabetes. In the absence of unequivocal hyperglycemia, results should be confirmed by repeat testing. The classification and Diagnosis of Diabetes Diabetes Care 202; 46: S19-S40. Current interpretive data was last revised 2022. Calcium 8.2(L) 8.5 - 10.3 mg/dL [facility] Blood 11/05/2024 3:44 PM CDT 11/05/2024 3:58 PM CDT us Mar George MD LAB BLOOD OR DERABLES Final Result Performing Organization Address [facility]/ZIP Co de Phone Number [facility] [place] [address] * POCT glucose (11/05/2024 3:43 PM CDT) [facility] Signature Glucose, POC 119 70 - 199 mg/dL Blood 11/05/2024 3:43 PM CDT 11/05/2024 3:43 PM CDT us Juliano Arredondo MD LAB POCT ORDERABLES - DEVICE Final Result Performing Organization Address [facility]/ZIP Co de Phone Number [facility] [place] [address] * ECG 12 lead (11/05/2024 12:04 PM CDT) [facility] Ventricular Rate EKG/Min 83 BPM [facility] Atrial Rate [address] [facility] AR-Interval (MSEC) [address] [facility] QRS-Interval (MSEC) [address] [facility] QT-Interval (MSEC) [address] [facility] QTc [address] [facility] P [place] [address] [facility] R [place] [address] [facility] T Victoria -[address] [facility] Diagnosis Sinus rhythm Nonspecific T wave abnormality Abnormal ECG Confirmed by Gustabo Mcdaniels MD ([id number]) on 11/05/2024 4:06:[address] [facility] 11/05/2024 12:0 4 PM CDT 11/05/2024 4:06 PM CDT Juliano Arredondo MD ECG ORDERABLES Fin al Result Performing Organization Address City/[facility] Co de Phone Number [facility] * POCT glucose (11/05/2024 11:41 AM CDT) Glucose, POC 120 70 - 199 mg/dL Blood 11/05/2024 11:4 1 AM CDT 11/05/2024 11:41 AM CDT Juliano Arredondo MD LAB POCT ORDERABLES - DEVICE Final Result Performing Organization Address City/[facility]/ZIP Co de Phone Number [facility] Department [place] [address] * POCT glucose (11/05/2024 7:43 AM CDT) Glucose, POC 113 70 - 199 mg/dL Blood 11/05/2024 7:43 AM CDT 11/05/2024 7:43 AM CDT Juliano Arredondo MD LAB POCT ORDERABLES - DEVICE Final Result [facility] Department [place] [address] * ECG 12 lead (11/05/2024 6:04 AM CDT) Ventricular Rate EKG/Min 83 BPM [facility] Atrial Rate 83 BPM [facility] AR-Interval (MSEC) 98 ms [facility] QRS-Interval (MSEC) 68 ms [facility] QT-Interval (MSEC) 362 ms [facility] QTc 425 ms [facility] P Victoria 65 degrees [facility] R Victoria 45 degrees [facility] T Victoria 12 degrees [facility] Diagnosis Sinus rhythm with short AR T wave abnormality, consider anterior ischemia Abnormal ECG Confirmed by Gustabo Mcdaniels MD ([id number]) on 11/05/2024 4:02:[address] [facility] 11/05/2024 6:04 AM CDT 11/05/2024 4:02 PM CDT us Juliano Arredondo MD ECG ORDERABLES Fin al Result [facility] * eGFR (11/05/2024 5:08 AM CDT) eGFR >90 >=60 mL/min/1. 73 m2 Comment: Interpretive Data Reference Interval Normal >/= 90 mL/min/1.73m2 Mildly decreased* 60 - 89 mL/min/1.73m2 Mildly to moderately decreased 45 - 59 mL/min/1.73m2 Moderately to severely decreased 30 - 44 mL/min/1.73m2 Severely decreased 15 - 29 mL/min/1.73m2 Kidney Failure < 15 mL/min/1.73m2 *Relative to young adult level Estimated glomerular filtration rate is determined by the 2020 CKD-EPI equation recommended by the National Kidney Foundation (A Unifying Approach to GFR Estimation: Recommendations of the NKF-ASK Task Force on Reassessing the Inclusion of Race in Diagnosing Kidney Disease, JASN 2020). The CKD-EPI equation should not be used for patients with unstable renal function and has not been validated in children and those over 70. Current interpretive data was last reviewed 2021. Blood 11/05/2024 5:08 AM CDT 11/05/2024 5:30 AM CDT us Mar George MD LAB BLOOD OR DERABLES Final Result Performing Organization Address [facility]/ZIP Co de Phone Number [facility] Department [place] [address] * Protime-INR (11/05/2024 5:08 AM CDT) PT 12.9 9.7 - 13.0 sec INR 1.19 0.90 - 1.20 [facility] Comment: Interpretive data Oral anticoagulant therapeutic ranges: Venous thromboembolism prophylaxis or treatment: 2.0-3.0 CARDIOLOGY Standard range: 2.0-3.0 High-intensity range: 2.5-3.5 Refer to indication-specific guidelines for appropriate target ranges for prosthetic heart valve replacement. Current interpretive data was last revised on 2019. Blood 11/05/2024 5:08 AM CDT 11/05/2024 5:36 AM CDT us Juliano Arredondo MD LAB BLOOD ORDERABLE S Final Result Performing Organization Address [facility] Co de Phone Number [facility] [place] [address] * (ABNORMAL) CBC without differential (11/05/2024 5:08 AM CDT) WBC 2.28(L) 3.80 - 9.90 K/cumm Hgb 8.5(L) 11.9 - 15.5 g/dL [facility] Hct 24.5(L) 35.6 - 45.5 % [facility] Plt 126(L) 150 - 400 K/cumm [facility] MPV 11.0 9.1 - 12.3 fL [facility] RBC 2.48(L) 3.90 - 5.20 M/cumm [facility] MCV 98.8(H) 81.3 - 96.4 fL [facility] MCH 34.3(H) 27.1 - 33.3 pg [facility] MCHC 34.7 32.3 - 35.7 g/dL [facility] RDW CV 15.9(H) 11.1 - 14.9 % [facility] RDW SD 56.5(H) 35.7 - 48.1 fL [facility] NRBC abs 0.00 0.00 - 0.01 K/cumm [facility] Blood 11/05/2024 5:08 AM CDT 11/05/2024 5:31 AM CDT Juliano Arredondo MD LAB BLOOD ORDERABLE S Final Result Performing Organization Address City/[facility]/ZIP Co de Phone Number [facility] [place] [address] * (ABNORMAL) CRP (acute phase) (11/05/2024 5:08 AM CDT) CRP 40.2(H) <=10.0 mg/L Blood 11/05/2024 5:08 AM CDT 11/05/2024 5:30 AM CDT Juliano Arredondo MD LAB BLOOD ORDERABLE S Final Result [facility] [place] [address] * Phosphorus (11/05/2024 5:08 AM CDT) Phosphorus, pl 3.8 2.3 - 4.5 mg/dL Blood 11/05/2024 5:08 AM CDT 11/05/2024 5:30 AM CDT us Mar George MD LAB BLOOD OR DERABLES Final Result Performing Organization Address City/[facility]/ZIP Co de Phone Number [facility] [place] [address] * Magnesium (11/05/2024 5:08 AM CDT) [facility] Magnesium 2.2 1.4 - 2.5 mg/dL Blood 11/05/2024 5:08 AM CDT 11/05/2024 5:30 AM CDT Mar George MD LAB BLOOD OR DERABLES Final Result Performing Organization Address [facility] Co de Phone Number [facility] [place] [address] * (ABNORMAL) Hepatic function panel (11/05/2024 5:08 AM CDT) [facility] Bilirubin, total 1.4(H) 0.1 - 1.2 mg/dL Bilirubin, direct 1.0(H) 0.1 - 0.3 mg/dL [facility] Protein, pl 4.7(L) 6.5 - 8.5 g/dL [facility] Albumin 2.3(L) 3.5 - 5.0 g/dL [facility] Alk phos 295(H) 40 - 130 Units/L [facility] ALT 376(H) 7 - 45 Units/L [facility] AST 388(H) 10 - 45 Units/L [facility] Blood 11/05/2024 5:08 AM CDT 11/05/2024 5:30 AM CDT Mar George MD LAB BLOOD OR DERABLES Final Result Performing Organization Address City/[facility]/ZIP Co de Phone Number [facility] [place] [address] * (ABNORMAL) Basic metabolic panel (11/05/2024 5:08 AM CDT) Sodium 136 135 - 145 mmol/L Potassium, pl 4.1 3.3 - 4.9 mmol/L [facility] Chloride 101 97 - 110 mmol/L [facility] CO2 26 22 - 32 mmol/L [facility] Anion gap 9 2 - 15 mmol/L [facility] BUN 2(L) 6 - 25 mg/dL [facility] Creatinine 0.41(L) 0.60 - 1.10 mg/dL [facility] Glucose 108 70 - 199 mg/dL [facility] Comment: Interpretive Data Fasting glucose >/= 126 mg/dl is diagnostic for diabetes. Fasting is defined as no caloric intake for at least 8 hours. Fasting glucose between 100 mg/dl to 125 mg/dl is diagnostic of prediabetes. In a patient with classic symptoms of hyperglycemia or hyperglycemic crisis, a random glucose >/= 200 mg/dl is diagnostic for diabetes. In the absence of unequivocal hyperglycemia, results should be confirmed by repeat testing. The classification and Diagnosis of Diabetes Diabetes Care 2021; 46: S19-S40. Current interpretive data was last revised 2022. Calcium 8.1(L) 8.5 - 10.3 mg/dL [facility] Blood 11/05/2024 5:08 AM CDT 11/05/2024 5:30 AM CDT us Mar George MD LAB BLOOD OR DERABLES Final Result [facility] [place] [address] * POCT glucose (11/05/2024 3:53 AM CDT) Glucose, POC 164 70 - 199 mg/dL Blood 11/05/2024 3:53 AM CDT 11/05/2024 3:53 AM CDT us Juliano Arredondo MD LAB POCT ORDERABLES - DEVICE Final Result [facility] [place] [address] * eGFR (11/04/2024 11:44 PM CDT) eGFR >90 >=60 mL/min/1. 73 m2 Comment: Interpretive Data Reference Interval Normal >/= 90 mL/min/1.73m2 Mildly decreased* 60 - 89 mL/min/1.73m2 Mildly to moderately decreased 45 - 59 mL/min/1.73m2 Moderately to severely decreased 30 - 44 mL/min/1.73m2 Severely decreased 15 - 29 mL/min/1.73m2 Kidney Failure < 15 mL/min/1.73m2 *Relative to young adult level Estimated glomerular filtration rate is determined by the 2020 CKD-EPI equation recommended by the National Kidney Foundation (A Unifying Approach to GFR Estimation: Recommendations of the NKF-ASK Task Force on Reassessing the Inclusion of Race in Diagnosing Kidney Disease, JASN 2020). The CKD-EPI equation should not be used for patients with unstable renal function and has not been validated in children and those over 70. Current interpretive data was last reviewed 2021. Blood 11/04/2024 11:4 4 PM CDT 11/05/2024 4:37 AM CDT us Mar George MD LAB BLOOD OR DERABLES Final Result Performing Organization Address [facility] de Phone Number [facility] Department [place] [address] * Phosphorus (11/04/2024 11:44 PM CDT) Phosphorus, pl 3.9 2.3 - 4.5 mg/dL Blood 11/04/2024 11:4 4 PM CDT 11/05/2024 4:37 AM CDT Mar George MD LAB BLOOD OR DERABLES Final Result Performing Organization Address [facility] Co de Phone Number [facility] Department [place] [address] * (ABNORMAL) Magnesium (11/04/2024 11:44 PM CDT) [facility] Magnesium 3.0(H) 1.4 - 2.5 mg/dL Comment:Repeated and Verifie d Blood 11/04/2024 11:4 4 PM CDT 11/05/2024 4:37 AM CDT Mar George MD LAB BLOOD OR DERABLES Final Result Performing Organization Address [facility] Co de Phone Number [facility] Department [place] [address] * (ABNORMAL) Basic metabolic panel (11/04/2024 11:44 PM CDT) [facility] Sodium 136 135 - 145 mmol/L Potassium, pl See Comment 3.3 - 4.9 mmol/L [facility] Comment:Credited: Specimen t oo old Chloride 99 97 - 110 mmol/L [facility] CO2 See Comment 22 - 32 mmol/L [facility] Comment:Credited: Specimen t oo old Anion gap See Comment 2 - 15 mmol/L [facility] Comment:Credited: Specimen t oo old BUN 3(L) 6 - 25 mg/dL [facility] Creatinine 0.43(L) 0.60 - 1.10 mg/dL [facility] Glucose See Comment 70 - 199 mg/dL [facility] Comment: Credited: Specimen too old Interpretive Data Fasting glucose >/= 126 mg/dl is diagnostic for diabetes. Fasting is defined as no caloric intake for at least 8 hours. Fasting glucose between 100 mg/dl to 125 mg/dl is diagnostic of prediabetes. In a patient with classic symptoms of hyperglycemia or hyperglycemic crisis, a random glucose >/= 200 mg/dl is diagnostic for diabetes. In the absence of unequivocal hyperglycemia, results should be confirmed by repeat testing. The classification and Diagnosis of Diabetes Diabetes Care 2021; 46: S19-S40. Current interpretive data was last revised 2022. Calcium 8.2(L) 8.5 - 10.3 mg/dL [facility] Blood 11/04/2024 11:4 4 PM CDT 11/05/2024 4:37 AM CDT Mar George MD LAB BLOOD OR DERABLES Edited Result - Final Performing Organization Address City/[facility]/ZIP Co de Phone Number [facility] [place] [address] * POCT glucose (11/04/2024 11:41 PM CDT) Glucose, POC 141 70 - 199 mg/dL Blood 11/04/2024 11:4 1 PM CDT 11/04/2024 11:41 PM CDT us Juliano Arredondo MD LAB POCT ORDERABLES - DEVICE Final Result Performing Organization Address City/[facility] Co de Phone Number [facility] [place] [address] * POCT glucose (11/04/2024 8:01 PM CDT) Glucose, POC 157 70 - 199 mg/dL Blood 11/04/2024 8:01 PM CDT 11/04/2024 8:01 PM CDT Juliano Arredondo MD LAB POCT ORDERABLES - DEVICE Final Result Performing Organization Address City/[facility] Co de Phone Number [facility] [place] [address] * eGFR (11/04/2024 3:43 PM CDT) eGFR >90 >=60 mL/min/1. 73 m2 Comment: Interpretive Data Reference Interval Normal >/= 90 mL/min/1.73m2 Mildly decreased* 60 - 89 mL/min/1.73m2 Mildly to moderately decreased 45 - 59 mL/min/1.73m2 Moderately to severely decreased 30 - 44 mL/min/1.73m2 Severely decreased 15 - 29 mL/min/1.73m2 Kidney Failure < 15 mL/min/1.73m2 *Relative to young adult level Estimated glomerular filtration rate is determined by the 2020 CKD-EPI equation recommended by the National Kidney Foundation (A Unifying Approach to GFR Estimation: Recommendations of the NKF-ASK Task Force on Reassessing the Inclusion of Race in Diagnosing Kidney Disease, JASN 2020). The CKD-EPI equation should not be used for patients with unstable renal function and has not been validated in children and those over 70. Current interpretive data was last reviewed 2021. Blood 11/04/2024 3:43 PM CDT 11/04/2024 4:55 PM CDT us Mar George MD LAB BLOOD OR DERABLES Final Result [facility] [place] [address] * (ABNORMAL) Protime-INR (11/04/2024 3:43 PM CDT) PT 16.9(H) 9.7 - 13.0 sec INR 1.55(H) 0.90 - 1.20 [facility] Comment: Interpretive data Oral anticoagulant therapeutic ranges: Venous thromboembolism prophylaxis or treatment: 2.0-3.0 CARDIOLOGY Standard range: 2.0-3.0 High-intensity range: 2.5-3.5 Refer to indication-specific guidelines for appropriate target ranges for prosthetic heart valve replacement. Current interpretive data was last revised on 2019. Blood 11/04/2024 3:43 PM CDT 11/04/2024 4:59 PM CDT us Juliano Arredondo MD LAB BLOOD ORDERABLE S Final Result Performing Organization Address City/[facility]/ZIP Co de Phone Number [facility] [place] [address] * Phosphorus (11/04/2024 3:43 PM CDT) [facility] Phosphorus, pl 3.9 2.3 - 4.5 mg/dL Blood 11/04/2024 3:43 PM CDT 11/04/2024 4:55 PM CDT Mar George MD LAB BLOOD OR DERABLES Final Result Performing Organization Address [facility] Co de Phone Number [facility] Department [place] [address] * (ABNORMAL) Magnesium (11/04/2024 3:43 PM CDT) [facility] Magnesium 1.2(L) 1.4 - 2.5 mg/dL Blood 11/04/2024 3:43 PM CDT 11/04/2024 4:55 PM CDT Mar George MD LAB BLOOD OR DERABLES Final Result Performing Organization Address [facility] Co de Phone Number [facility] [place] [address] * (ABNORMAL) Hepatic function panel (11/04/2024 3:43 PM CDT) [facility] Bilirubin, total 1.7(H) 0.1 - 1.2 mg/dL Bilirubin, direct 1.3(H) 0.1 - 0.3 mg/dL [facility] Protein, pl 4.3(L) 6.5 - 8.5 g/dL [facility] Albumin 1.7(L) 3.5 - 5.0 g/dL [facility] Alk phos 251(H) 40 - 130 Units/L [facility] ALT 459(H) 7 - 45 Units/L [facility] AST 683(H) 10 - 45 Units/L [facility] Blood 11/04/2024 3:43 PM CDT 11/04/2024 4:55 PM CDT us Juliano Arredondo MD LAB BLOOD ORDERABLE S Final Result Performing Organization Address City/State/[facility] Co de Phone Number [facility] [place] [address] * (ABNORMAL) Basic metabolic panel (11/04/2024 3:43 PM CDT) Sodium 133(L) 135 - 145 mmol/L Potassium, pl 3.5 3.3 - 4.9 mmol/L [facility] Chloride 94(L) 97 - 110 mmol/L [facility] CO2 24 22 - 32 mmol/L [facility] Anion gap 15 2 - 15 mmol/L [facility] BUN 4(L) 6 - 25 mg/dL [facility] Creatinine 0.42(L) 0.60 - 1.10 mg/dL [facility] Glucose 107 70 - 199 mg/dL [facility] Comment: Interpretive Data Fasting glucose >/= 126 mg/dl is diagnostic for diabetes. Fasting is defined as no caloric intake for at least 8 hours. Fasting glucose between 100 mg/dl to 125 mg/dl is diagnostic of prediabetes. In a patient with classic symptoms of hyperglycemia or hyperglycemic crisis, a random glucose >/= 200 mg/dl is diagnostic for diabetes. In the absence of unequivocal hyperglycemia, results should be confirmed by repeat testing. The classification and Diagnosis of Diabetes Diabetes Care 202; 46: S19-S40. Current interpretive data was last revised 2022. Calcium 7.4(L) 8.5 - 10.3 mg/dL [facility] Blood 11/04/2024 3:43 PM CDT 11/04/2024 4:55 PM CDT us Mar George MD LAB BLOOD OR DERABLES Final Result Performing Organization Address City/State/[facility] Co de Phone Number [facility] [place] [address] * POCT glucose (11/04/2024 3:42 PM CDT) Glucose, POC 123 70 - 199 mg/dL Blood 11/04/2024 3:42 PM CDT 11/04/2024 3:42 PM CDT Juliano Arredondo MD LAB POCT ORDERABLES - DEVICE Final Result Performing Organization Address [facility] [place] [address] * POCT glucose (11/04/2024 12:45 PM CDT) Glucose, POC 108 70 - 199 mg/dL Blood 11/04/2024 12:4 5 PM CDT 11/04/2024 12:45 PM CDT Juliano Arredondo MD LAB POCT ORDERABLES - DEVICE Final Result Performing Organization Address [facility] Co de Phone Number [facility] [place] [address] * POCT glucose (11/04/2024 11:47 AM CDT) Glucose, POC 74 70 - 199 mg/dL Blood 11/04/2024 11:4 7 AM CDT 11/04/2024 11:47 AM CDT us Juliano Arredondo MD LAB POCT ORDERABLES - DEVICE Final Result Performing Organization Address City/[facility] Co de Phone Number [facility] [place] [address] * POCT glucose (11/04/2024 8:06 AM CDT) Glucose, POC 112 70 - 199 mg/dL Blood 11/04/2024 8:06 AM CDT 11/04/2024 8:06 AM CDT Juliano Arredondo MD LAB POCT ORDERABLES - DEVICE Final Result Performing Organization Address [facility] Co de Phone Number [facility] [place] [address] * POCT glucose (11/04/2024 7:48 AM CDT) Glucose, POC 125 70 - 199 mg/dL Blood 11/04/2024 7:48 AM CDT 11/04/2024 7:48 AM CDT Juliano Arredondo MD LAB POCT ORDERABLES - DEVICE Final Result Performing Organization Address [facility] de Phone Number [facility] [place] [address] * (ABNORMAL) POCT glucose (11/04/2024 7:04 AM CDT) Glucose, POC 60(L) 70 - 199 mg/dL Blood 11/04/2024 7:04 AM CDT 11/04/2024 7:04 AM CDT Juliano Arredondo MD LAB POCT ORDERABLES - DEVICE Final Result Performing Organization Address [facility] Co de Phone Number [facility] [place] [address] * ECG 12 lead (11/04/2024 6:32 AM CDT) Ventricular Rate EKG/Min 97 BPM [facility] Atrial Rate 97 BPM [facility] AR-Interval (MSEC) [address] [facility] QRS-Interval (MSEC) [address] [facility] QT-Interval (MSEC) [address] [facility] QTc [address] [facility] P [place] [address] [facility] R [place] [address] [facility] T Victoria [address] [facility] Diagnosis Poor data quality, interpretation may be adversely affected Sinus rhythm with short AR Nonspecific ST and T wave abnormality suggests inferolateral ischemia Abnormal ECG When compared with ECG of 03-NOV-2024 12:35, (unconfirmed) Nonspecific T wave abnormality, improved in Inferior leads Confirmed by BILLY CHACKO M.D ([id number]) on 11/06/2024 9:15:[address] [facility] 11/04/2024 6:32 AM CDT 11/06/2024 9:15 AM CDT us Juliano Arredondo MD ECG ORDERABLES Fin al Result [facility] * eGFR (11/04/2024 6:03 AM CDT) eGFR >90 >=60 mL/min/1. 73 m2 Comment: Interpretive Data Reference Interval Normal >/= 90 mL/min/1.73m2 Mildly decreased* 60 - 89 mL/min/1.73m2 Mildly to moderately decreased 45 - 59 mL/min/1.73m2 Moderately to severely decreased 30 - 44 mL/min/1.73m2 Severely decreased 15 - 29 mL/min/1.73m2 Kidney Failure < 15 mL/min/1.73m2 *Relative to young adult level Estimated glomerular filtration rate is determined by the 2020 CKD-EPI equation recommended by the National Kidney Foundation (A Unifying Approach to GFR Estimation: Recommendations of the NKF-ASK Task Force on Reassessing the Inclusion of Race in Diagnosing Kidney Disease, JASN 2020). The CKD-EPI equation should not be used for patients with unstable renal function and has not been validated in children and those over 70. Current interpretive data was last reviewed 2021. Blood 11/04/2024 6:03 AM CDT 11/04/2024 6:24 AM CDT us Mar George MD LAB BLOOD OR DERABLES Final Result Performing Organization Address [facility] Co de Phone Number [facility] [place] [address] * (ABNORMAL) Protime-INR (11/04/2024 6:03 AM CDT) [facility] PT 19.8(H) 9.7 - 13.0 sec INR 1.81(H) 0.90 - 1.20 [facility] Comment: Interpretive data Oral anticoagulant therapeutic ranges: Venous thromboembolism prophylaxis or treatment: 2.0-3.0 CARDIOLOGY Standard range: 2.0-3.0 High-intensity range: 2.5-3.5 Refer to indication-specific guidelines for appropriate target ranges for prosthetic heart valve replacement. Current interpretive data was last revised on 2019. Blood 11/04/2024 6:03 AM CDT 11/04/2024 6:22 AM CDT us Juliano Arredondo MD LAB BLOOD ORDERABLE S Final Result Performing Organization Address [facility] de Phone Number [facility] Department [place] [address] * (ABNORMAL) CBC without differential (11/04/2024 6:03 AM CDT) [facility] WBC 5.43 3.80 - 9.90 K/cumm Hgb 9.3(L) 11.9 - 15.5 g/dL [facility] Hct 26.3(L) 35.6 - 45.5 % [facility] Plt 110(L) 150 - 400 K/cumm [facility] MPV 11.2 9.1 - 12.3 fL [facility] RBC 2.68(L) 3.90 - 5.20 M/cumm [facility] MCV 98.1(H) 81.3 - 96.4 fL [facility] MCH 34.7(H) 27.1 - 33.3 pg [facility] MCHC 35.4 32.3 - 35.7 g/dL [facility] RDW CV 15.4(H) 11.1 - 14.9 % [facility] RDW SD 54.5(H) 35.7 - 48.1 fL [facility] NRBC abs 0.00 0.00 - 0.01 K/cumm [facility] Blood 11/04/2024 6:03 AM CDT 11/04/2024 6:23 AM CDT Juliano Arredondo MD LAB BLOOD ORDERABLE S Final Result Performing Organization Address City/[facility]/ZIP Co de Phone Number [facility] [place] [address] * Phosphorus (11/04/2024 6:03 AM CDT) Phosphorus, pl 3.8 2.3 - 4.5 mg/dL Blood 11/04/2024 6:03 AM CDT 11/04/2024 6:24 AM CDT us Mar George MD LAB BLOOD OR DERABLES Final Result Performing Organization Address City/[facility]/ZIP Co de Phone Number [facility] [place] [address] * Magnesium (11/04/2024 6:03 AM CDT) Magnesium 1.8 1.4 - 2.5 mg/dL Blood 11/04/2024 6:03 AM CDT 11/04/2024 6:24 AM CDT Mar George MD LAB BLOOD OR DERABLES Final Result [facility] Department [place] [address] * Acetaminophen level (11/04/2024 6:03 AM CDT) Acetaminophen 5 <=5 mcg/mL Comment: Interpretive Data Significant hepatic injury may occur and treatment with n-acetyl cysteine is generally recommended if the acetaminophen level exceeds: 150 mcg/mL at 4 hours after ingestion 75 mcg/mL at 8 hours after ingestion 38 mcg/mL at 12 hours after ingestion 19 mcg/mL at 16 hours after ingestion Consult toxicology or poison control ([phone]) for unknown ingestion time. Current interpretive data was last revised 2023. Blood 11/04/2024 6:03 AM CDT 11/04/2024 6:24 AM CDT us Juliano Arredondo MD LAB BLOOD ORDERABLE S Final Result Performing Organization Address City/[facility]/ZIP Co de Phone Number [facility] [place] [address] * (ABNORMAL) Hepatic function panel (11/04/2024 6:03 AM CDT) Bilirubin, total 1.9(H) 0.1 - 1.2 mg/dL Bilirubin, direct 1.5(H) 0.1 - 0.3 mg/dL [facility] Protein, pl 4.3(L) 6.5 - 8.5 g/dL [facility] Albumin 1.8(L) 3.5 - 5.0 g/dL [facility] Alk phos 250(H) 40 - 130 Units/L [facility] ALT 562(H) 7 - 45 Units/L [facility] AST 1,170(H) 10 - 45 Units/L [facility] Blood 11/04/2024 6:03 AM CDT 11/04/2024 6:24 AM CDT us Mar George MD LAB BLOOD OR DERABLES Final Result Performing Organization Address City/[facility]/ZIP Co de Phone Number [facility] [place] [address] * (ABNORMAL) Basic metabolic panel (11/04/2024 6:03 AM CDT) Pathologist [facility] Sodium 136 135 - 145 mmol/L Potassium, pl 4.4 3.3 - 4.9 mmol/L [facility] Chloride 99 97 - 110 mmol/L [facility] CO2 25 22 - 32 mmol/L [facility] Anion gap 12 2 - 15 mmol/L [facility] BUN 4(L) 6 - 25 mg/dL [facility] Creatinine 0.40(L) 0.60 - 1.10 mg/dL [facility] Glucose 59(L) 70 - 199 mg/dL [facility] Comment: Interpretive Data Fasting glucose >/= 126 mg/dl is diagnostic for diabetes. Fasting is defined as no caloric intake for at least 8 hours. Fasting glucose between 100 mg/dl to 125 mg/dl is diagnostic of prediabetes. In a patient with classic symptoms of hyperglycemia or hyperglycemic crisis, a random glucose >/= 200 mg/dl is diagnostic for diabetes. In the absence of unequivocal hyperglycemia, results should be confirmed by repeat testing. The classification and Diagnosis of Diabetes Diabetes Care 202; 46: S19-S40. Current interpretive data was last revised 2022. Calcium 7.7(L) 8.5 - 10.3 mg/dL [facility] Blood 11/04/2024 6:03 AM CDT 11/04/2024 6:24 AM CDT us Mar George MD LAB BLOOD OR DERABLES Final Result [facility] [place] [address] * POCT glucose (11/04/2024 12:23 AM CDT) Glucose, POC 102 70 - 199 mg/dL Blood 11/04/2024 12:2 3 AM CDT 11/04/2024 12:23 AM CDT us Juliano Arredondo MD LAB POCT ORDERABLES - DEVICE Final Result [facility] [place] [address] * eGFR (11/04/2024 12:02 AM CDT) eGFR >90 >=60 mL/min/1. 73 m2 Comment: Interpretive Data Reference Interval Normal >/= 90 mL/min/1.73m2 Mildly decreased* 60 - 89 mL/min/1.73m2 Mildly to moderately decreased 45 - 59 mL/min/1.73m2 Moderately to severely decreased 30 - 44 mL/min/1.73m2 Severely decreased 15 - 29 mL/min/1.73m2 Kidney Failure < 15 mL/min/1.73m2 *Relative to young adult level Estimated glomerular filtration rate is determined by the 2020 CKD-EPI equation recommended by the National Kidney Foundation (A Unifying Approach to GFR Estimation: Recommendations of the NKF-ASK Task Force on Reassessing the Inclusion of Race in Diagnosing Kidney Disease, JASN 2020). The CKD-EPI equation should not be used for patients with unstable renal function and has not been validated in children and those over 70. Current interpretive data was last reviewed 2021. Blood 11/04/2024 12:0 2 AM CDT 11/04/2024 12:34 AM CDT us Mar George MD LAB BLOOD OR DERABLES Final Result [facility] [place] [address] * Phosphorus (11/04/2024 12:02 AM CDT) Phosphorus, pl 3.8 2.3 - 4.5 mg/dL Blood 11/04/2024 12:0 2 AM CDT 11/04/2024 12:34 AM CDT Mar George MD LAB BLOOD OR DERABLES Final Result [facility] [place] [address] * Magnesium (11/04/2024 12:02 AM CDT) Pathologist [facility] Magnesium 2.3 1.4 - 2.5 mg/dL Blood 11/04/2024 12:0 2 AM CDT 11/04/2024 12:34 AM CDT Mar George MD LAB BLOOD OR DERABLES Final Result Performing Organization Address [facility] de Phone Number [facility] [place] [address] * (ABNORMAL) Basic metabolic panel (11/04/2024 12:02 AM CDT) Pathologist [facility] Sodium 139 135 - 145 mmol/L Potassium, pl 3.7 3.3 - 4.9 mmol/L [facility] Chloride 102 97 - 110 mmol/L [facility] CO2 27 22 - 32 mmol/L [facility] Anion gap 10 2 - 15 mmol/L [facility] BUN 5(L) 6 - 25 mg/dL [facility] Creatinine 0.41(L) 0.60 - 1.10 mg/dL [facility] Glucose 84 70 - 199 mg/dL [facility] Comment: Interpretive Data Fasting glucose >/= 126 mg/dl is diagnostic for diabetes. Fasting is defined as no caloric intake for at least 8 hours. Fasting glucose between 100 mg/dl to 125 mg/dl is diagnostic of prediabetes. In a patient with classic symptoms of hyperglycemia or hyperglycemic crisis, a random glucose >/= 200 mg/dl is diagnostic for diabetes. In the absence of unequivocal hyperglycemia, results should be confirmed by repeat testing. The classification and Diagnosis of Diabetes Diabetes Care 202; 46: S19-S40. Current interpretive data was last revised 2022. Calcium 7.8(L) 8.5 - 10.3 mg/dL [facility] Blood 11/04/2024 12:0 2 AM CDT 11/04/2024 12:34 AM CDT Mar George MD LAB BLOOD OR DERABLES Final Result [facility] [place] [address] * US Abdomen Complete W Liver Doppler (C) (11/03/2024 10:33 PM CDT) Anatomical Region Laterality Modality Abdomen Right Ultrasound 11/03/2024 11:5 7 PM CDT Impressions 11/04/2024 5:06 AM CDT 1. Diffuse hepatic steatosis. 2. No Doppler evidence of thrombosis. 3. Findings compatible with volume overload including edema surrounding the gallbladder, small volume ascites, and small left pleural effusion. Dictated by: Chuckie Olson MD The radiology attending physician has personally reviewed this study, and had reviewed and/or edited this written report and agrees with it. Electronically signed by: Rohini Graf M.D. Narrative 11/04/2024 5:06 AM CDT EXAMINATION: COMPLETE ABDOMINAL SONOGRAM WITH LIVER DOPPLER HISTORY: Acute hepatocellular liver injury COMPARISON: None FINDINGS: Color Doppler and spectral analysis were used to evaluate the hepatic vasculature. Liver: The liver is normal in size. The echotexture is normal. The echogenicity is increased. There is no surface nodularity. No focal solid lesions are visualized. * Portal veins: The main portal vein as well as the right and left branches have hepatopetal (antegrade) flow. No thrombosis is visualized. * Hepatic veins: Limited evaluation due to hepatic steatosis but the middle, right, and left hepatic veins are patent with antegrade flow. * Portosplenic confluence: The portosplenic confluence is patent with appropriate directional flow. * IVC: The inferior vena cava at the level of the liver is patent with appropriate directional flow. * Hepatic artery: The visualized main hepatic artery is patent with antegrade flow. Gallbladder: The gallbladder is normal in size. There are no stones or sludge within the gallbladder. There is marked gallbladder wall edema. Sonographic Paul sign was negative. Tiny 3 mm sessile polyp within the gallbladder which does not require additional follow-up by size criteria. Bile Duct: There is no intrahepatic bile duct dilatation. The diameter of the common duct is 3 mm in the proximal segment and 5 mm in the mid segment and 3 mm in the distal segment. Kidneys: There is no hydronephrosis in the visualized portions of the kidneys. Pancreas: The visualized portions of the pancreas demonstrate no focal lesions. Spleen: The spleen is normal in size. Aorta: The proximal aorta is normal. Inferior vena cava: The proximal IVC is normal. Other Findings: There is small volume ascites. Small left pleural effusion. Procedure Note Rohini Graf MD - 11/04/2024 EXAMINATION: COMPLETE ABDOMINAL SONOGRAM WITH LIVER DOPPLER HISTORY: Acute hepatocellular liver injury COMPARISON: None FINDINGS: Color Doppler and spectral analysis were used to evaluate the hepatic vasculature. Liver: The liver is normal in size. The echotexture is normal. The echogenicity is increased. There is no surface nodularity. No focal solid lesions are visualized. * Portal veins: The main portal vein as well as the right and left branches have hepatopetal (antegrade) flow. No thrombosis is visualized. * Hepatic veins: Limited evaluation due to hepatic steatosis but the middle, right, and left hepatic veins are patent with antegrade flow. * Portosplenic confluence: The portosplenic confluence is patent with appropriate directional flow. * IVC: The inferior vena cava at the level of the liver is patent with appropriate directional flow. * Hepatic artery: The visualized main hepatic artery is patent with antegrade flow. Gallbladder: The gallbladder is normal in size. There are no stones or sludge within the gallbladder. There is marked gallbladder wall edema. Sonographic Paul sign was negative. Tiny 3 mm sessile polyp within the gallbladder which does not require additional follow-up by size criteria. Bile Duct: There is no intrahepatic bile duct dilatation. The diameter of the common duct is 3 mm in the proximal segment and 5 mm in the mid segment and 3 mm in the distal segment. Kidneys: There is no hydronephrosis in the visualized portions of the kidneys. Pancreas: The visualized portions of the pancreas demonstrate no focal lesions. Spleen: The spleen is normal in size. Aorta: The proximal aorta is normal. Inferior vena cava: The proximal IVC is normal. Other Findings: There is small volume ascites. Small left pleural effusion. IMPRESSION: 1. Diffuse hepatic steatosis. 2. No Doppler evidence of thrombosis. 3. Findings compatible with volume overload including edema surrounding the gallbladder, small volume ascites, and small left pleural effusion. Dictated by: Chuckie Olson MD The radiology attending physician has personally reviewed this study, and had reviewed and/or edited this written report and agrees with it. Electronically signed by: Rohini Graf M.D. Juliano Arredondo MD IMG US PROCEDURES F inal Result * POCT glucose (11/03/2024 9:01 PM CDT) Glucose, POC 88 70 - 199 mg/dL Blood 11/03/2024 9:01 PM CDT 11/03/2024 9:01 PM CDT Juliano Arredondo MD LAB POCT ORDERABLES - DEVICE Final Result [facility] [place] [address] * eGFR (11/03/2024 4:10 PM CDT) eGFR >90 >=60 mL/min/1. 73 m2 Comment: Interpretive Data Reference Interval Normal >/= 90 mL/min/1.73m2 Mildly decreased* 60 - 89 mL/min/1.73m2 Mildly to moderately decreased 45 - 59 mL/min/1.73m2 Moderately to severely decreased 30 - 44 mL/min/1.73m2 Severely decreased 15 - 29 mL/min/1.73m2 Kidney Failure < 15 mL/min/1.73m2 *Relative to young adult level Estimated glomerular filtration rate is determined by the 2020 CKD-EPI equation recommended by the National Kidney Foundation (A Unifying Approach to GFR Estimation: Recommendations of the NKF-ASK Task Force on Reassessing the Inclusion of Race in Diagnosing Kidney Disease, JASN 2020). The CKD-EPI equation should not be used for patients with unstable renal function and has not been validated in children and those over 70. Current interpretive data was last reviewed 2021. Blood 11/03/2024 4:10 PM CDT 11/03/2024 4:18 PM CDT Mar George MD LAB BLOOD OR DERABLES Final Result Performing Organization Address [facility] [place] [address] * Phosphorus (11/03/2024 4:10 PM CDT) Phosphorus, pl 3.2 2.3 - 4.5 mg/dL Blood 11/03/2024 4:10 PM CDT 11/03/2024 4:18 PM CDT Mar George MD LAB BLOOD OR DERABLES Final Result Performing Organization Address [facility] de Phone Number [facility] [place] [address] * Magnesium (11/03/2024 4:10 PM CDT) Magnesium 1.7 1.4 - 2.5 mg/dL Blood 11/03/2024 4:10 PM CDT 11/03/2024 4:18 PM CDT Mar George MD LAB BLOOD OR DERABLES Final Result Performing Organization Address [facility] Co de Phone Number [facility] [place] [address] * (ABNORMAL) Basic metabolic panel (11/03/2024 4:10 PM CDT) Sodium 137 135 - 145 mmol/L Potassium, pl 4.6 3.3 - 4.9 mmol/L [facility] Chloride 102 97 - 110 mmol/L [facility] CO2 28 22 - 32 mmol/L [facility] Anion gap 7 2 - 15 mmol/L [facility] BUN 8 6 - 25 mg/dL [facility] Creatinine 0.53(L) 0.60 - 1.10 mg/dL [facility] Glucose 98 70 - 199 mg/dL [facility] Comment: Interpretive Data Fasting glucose >/= 126 mg/dl is diagnostic for diabetes. Fasting is defined as no caloric intake for at least 8 hours. Fasting glucose between 100 mg/dl to 125 mg/dl is diagnostic of prediabetes. In a patient with classic symptoms of hyperglycemia or hyperglycemic crisis, a random glucose >/= 200 mg/dl is diagnostic for diabetes. In the absence of unequivocal hyperglycemia, results should be confirmed by repeat testing. The classification and Diagnosis of Diabetes Diabetes Care 2021; 46: S19-S40. Current interpretive data was last revised 2022. Calcium 7.6(L) 8.5 - 10.3 mg/dL [facility] Blood 11/03/2024 4:10 PM CDT 11/03/2024 4:18 PM CDT us Mar George MD LAB BLOOD OR DERABLES Final Result [facility] [place] [address] * KATEY ab ql w/rflx to KATEY qn (11/03/2024 2:31 PM CDT) Pathologist [facility] KATEY Negative Comment: Interpretive Data Normal range for KATEY Qualitative Antibody = Negative. 1. KATEY is performed using indirect immunofluorescence against HEp-2 cells 2. KATEY titers are performed on all positive qualitative results. 3. A significantly positive KATEY result is defined as a positive nuclear fluorescence at a titer of 1:80 or greater. 4. 15% of normal people above age 65 have significantly positive KATEY results. 5% or less of normal people age 65 or under have significantly positive KATEY results. Current interpretive data was last revised on 2020. Blood 11/03/2024 2:31 PM CDT 11/03/2024 2:39 PM CDT Mar George MD LAB BLOOD OR DERABLES Final Result Performing Organization Address [facility] Co de Phone Number [facility] [place] [address] * Smooth muscle antibody, qualitative (11/03/2024 2:31 PM CDT) [facility] Anti-smooth muscle Negative Negative Blood 11/03/2024 2:31 PM CDT 11/03/2024 2:39 PM CDT Mar George MD LAB BLOOD OR DERABLES Final Result Performing Organization Address [facility] de Phone Number [facility] [place] [address] * Mitochondrial antibodies, qualitative (11/03/2024 2:31 PM CDT) [facility] Anti-mitochond rial Negative Negative Blood 11/03/2024 2:31 PM CDT 11/03/2024 2:38 PM CDT Mar George MD LAB BLOOD OR DERABLES Final Result Performing Organization Address [facility] Co de Phone Number [facility] [place] [address] * Hepatitis panel, acute Blood (11/03/2024 2:31 PM CDT) [facility] Hep A IgM Nonreactive Nonreactive Hep B core IgM Nonreactive Nonreactive [facility] Hep C Ab Nonreactive Nonreactive [facility] Comment:Antibodies to HCV no t detected. Does NOT exclude the possibility of recent exposure to HCV. Current interpretive data was last revised on 22 HepBsAg Nonreactive Nonreactive [facility] Blood 11/03/2024 2:31 PM CDT 11/03/2024 2:38 PM CDT Mar George MD LAB MICROBIOLOGY - GENERAL ORDERABLES Final Result Performing Organization Address [facility] de Phone Number [facility] [place] [address] * (ABNORMAL) Protime-INR (11/03/2024 2:31 PM CDT) PT 17.4(H) 9.7 - 13.0 sec INR 1.60(H) 0.90 - 1.20 [facility] Comment: Interpretive data Oral anticoagulant therapeutic ranges: Venous thromboembolism prophylaxis or treatment: 2.0-3.0 CARDIOLOGY Standard range: 2.0-3.0 High-intensity range: 2.5-3.5 Refer to indication-specific guidelines for appropriate target ranges for prosthetic heart valve replacement. Current interpretive data was last revised on 2019. Blood 11/03/2024 2:31 PM CDT 11/03/2024 2:40 PM CDT Mar George MD LAB BLOOD OR DERABLES Final Result Performing Organization Address [facility] de Phone Number [facility] [place] [address] * (ABNORMAL) Hepatic function panel (11/03/2024 2:31 PM CDT) Bilirubin, total 1.9(H) 0.1 - 1.2 mg/dL Bilirubin, direct 1.4(H) 0.1 - 0.3 mg/dL [facility] Protein, pl 4.2(L) 6.5 - 8.5 g/dL [facility] Albumin 1.9(L) 3.5 - 5.0 g/dL [facility] Alk phos 233(H) 40 - 130 Units/L [facility] ALT 730(H) 7 - 45 Units/L [facility] AST 2,285(H) 10 - 45 Units/L [facility] Blood 11/03/2024 2:31 PM CDT 11/03/2024 2:38 PM CDT us Mar George MD LAB BLOOD OR DERABLES Final Result [facility] Department of Laboratories [place] [address] * ECG 12 lead (11/03/2024 12:35 PM CDT) Ventricular Rate EKG/Min 94 BPM [facility] Atrial Rate [address] [facility] AR-Interval (MSEC) [address] [facility] QRS-Interval (MSEC) 68 ms [facility] QT-Interval (MSEC) [address] [facility] QTc [address] [facility] P Victoria 42 degrees [facility] R [place] [address] [facility] T Victoria -[address] [facility] Diagnosis Sinus rhythm with short AR T wave abnormality, consider lateral ischemia Prolonged QT Abnormal ECG When compared with ECG of 02-NOV-2024 06:38, Inverted T waves have replaced nonspecific T wave abnormality in Lateral leads Confirmed by SHALINI RODRIGUEZ M.D ([id number]) on 11/05/2024 10:36:[address] [facility] 11/03/2024 12:3 5 PM CDT 11/05/2024 10:36 PM CDT us Juliano Arredondo MD ECG ORDERABLES Fin al Result [facility] * eGFR (11/03/2024 8:33 AM CDT) eGFR >90 >=60 mL/min/1. 73 m2 Comment: Interpretive Data Reference Interval Normal >/= 90 mL/min/1.73m2 Mildly decreased* 60 - 89 mL/min/1.73m2 Mildly to moderately decreased 45 - 59 mL/min/1.73m2 Moderately to severely decreased 30 - 44 mL/min/1.73m2 Severely decreased 15 - 29 mL/min/1.73m2 Kidney Failure < 15 mL/min/1.73m2 *Relative to young adult level Estimated glomerular filtration rate is determined by the 2020 CKD-EPI equation recommended by the National Kidney Foundation (A Unifying Approach to GFR Estimation: Recommendations of the NKF-ASK Task Force on Reassessing the Inclusion of Race in Diagnosing Kidney Disease, JASN 2020). The CKD-EPI equation should not be used for patients with unstable renal function and has not been validated in children and those over 70. Current interpretive data was last reviewed 2021. Blood 11/03/2024 8:33 AM CDT 11/03/2024 9:20 AM CDT us Mar George MD LAB BLOOD OR DERABLES Final Result Performing Organization Address City/[facility]/ZIP Co de Phone Number [facility] [place] [address] * (ABNORMAL) Iron profile w/ IBC (11/03/2024 8:33 AM CDT) Pathologist [facility] Iron 69 35 - 145 mcg/dL TIBC 101(L) 250 - 400 mcg/dL [facility] Transferrin saturation 68(H) 20 - 50 % [facility] Blood 11/03/2024 8:33 AM CDT 11/03/2024 9:20 AM CDT us Mar George MD LAB BLOOD OR DERABLES Final Result [facility] [place] [address] * (ABNORMAL) CBC without differential (11/03/2024 8:33 AM CDT) Pathologist [facility] WBC 4.86 3.80 - 9.90 K/cumm Hgb 9.5(L) 11.9 - 15.5 g/dL [facility] Hct 27.5(L) 35.6 - 45.5 % [facility] Plt 87(L) 150 - 400 K/cumm [facility] MPV 12.2 9.1 - 12.3 fL [facility] RBC 2.77(L) 3.90 - 5.20 M/cumm [facility] MCV 99.3(H) 81.3 - 96.4 fL [facility] MCH 34.3(H) 27.1 - 33.3 pg [facility] MCHC 34.5 32.3 - 35.7 g/dL [facility] RDW CV 15.2(H) 11.1 - 14.9 % [facility] RDW SD 55.1(H) 35.7 - 48.1 fL [facility] NRBC abs 0.00 0.00 - 0.01 K/cumm [facility] Blood 11/03/2024 8:33 AM CDT 11/03/2024 9:19 AM CDT us Mar George MD LAB BLOOD OR DERABLES Final Result Performing Organization Address City/[facility] Co de Phone Number [facility] [place] [address] * Phosphorus (11/03/2024 8:33 AM CDT) Pathologist [facility] Phosphorus, pl 2.7 2.3 - 4.5 mg/dL Blood 11/03/2024 8:33 AM CDT 11/03/2024 9:20 AM CDT Mar George MD LAB BLOOD OR DERABLES Final Result Performing Organization Address City/[facility] Co de Phone Number [facility] [place] [address] * Magnesium (11/03/2024 8:33 AM CDT) Pathologist [facility] Magnesium 2.3 1.4 - 2.5 mg/dL Blood 11/03/2024 8:33 AM CDT 11/03/2024 9:20 AM CDT Mar George MD LAB BLOOD OR DERABLES Final Result Performing Organization Address City/[facility] [place] [address] * (ABNORMAL) Ferritin (11/03/2024 8:33 AM CDT) [facility] Ferritin 7,953(H) 13 - 150 ng/mL Blood 11/03/2024 8:33 AM CDT 11/03/2024 9:20 AM CDT Mar George MD LAB BLOOD OR DERABLES Final Result Performing Organization Address City/[facility] [place] [address] * Creatine kinase (CK), total (11/03/2024 8:33 AM CDT) [facility] CK 72 30 - 200 Units/L Blood 11/03/2024 8:33 AM CDT 11/03/2024 9:20 AM CDT Mar George MD LAB BLOOD OR DERABLES Final Result Performing Organization Address [facility] [place] [address] * (ABNORMAL) Acetaminophen level (11/03/2024 8:33 AM CDT) Acetaminophen 39(H) <=5 mcg/mL Comment: Interpretive Data Significant hepatic injury may occur and treatment with n-acetyl cysteine is generally recommended if the acetaminophen level exceeds: 150 mcg/mL at 4 hours after ingestion 75 mcg/mL at 8 hours after ingestion 38 mcg/mL at 12 hours after ingestion 19 mcg/mL at 16 hours after ingestion Consult toxicology or poison control ([phone]) for unknown ingestion time. Current interpretive data was last revised 2023. Blood 11/03/2024 8:33 AM CDT 11/03/2024 9:20 AM CDT Mar George MD LAB BLOOD OR DERABLES Final Result Performing Organization Address City/[facility]/ZIP Co de Phone Number [facility] [place] [address] * (ABNORMAL) Hepatic function panel (11/03/2024 8:33 AM CDT) Bilirubin, total 1.6(H) 0.1 - 1.2 mg/dL Bilirubin, direct 1.2(H) 0.1 - 0.3 mg/dL [facility] Comment:Reviewed Protein, pl 4.1(L) 6.5 - 8.5 g/dL [facility] Albumin 1.9(L) 3.5 - 5.0 g/dL [facility] Alk phos 207(H) 40 - 130 Units/L [facility] ALT 730(H) 7 - 45 Units/L [facility] Comment:Repeated on Dilution AST 2,754(H) 10 - 45 Units/L [facility] Comment:Repeated on Dilution Blood 11/03/2024 8:33 AM CDT 11/03/2024 9:20 AM CDT Mar George MD LAB BLOOD OR DERABLES Final Result Performing Organization Address City/[facility]/ZIP Co de Phone Number [facility] [place] [address] * (ABNORMAL) Basic metabolic panel (11/03/2024 8:33 AM CDT) Pathologist [facility] Sodium 136 135 - 145 mmol/L Potassium, pl 4.4 3.3 - 4.9 mmol/L [facility] Chloride 100 97 - 110 mmol/L [facility] CO2 28 22 - 32 mmol/L [facility] Anion gap 8 2 - 15 mmol/L [facility] BUN 8 6 - 25 mg/dL [facility] Creatinine 0.57(L) 0.60 - 1.10 mg/dL [facility] Glucose 97 70 - 199 mg/dL [facility] Comment: Interpretive Data Fasting glucose >/= 126 mg/dl is diagnostic for diabetes. Fasting is defined as no caloric intake for at least 8 hours. Fasting glucose between 100 mg/dl to 125 mg/dl is diagnostic of prediabetes. In a patient with classic symptoms of hyperglycemia or hyperglycemic crisis, a random glucose >/= 200 mg/dl is diagnostic for diabetes. In the absence of unequivocal hyperglycemia, results should be confirmed by repeat testing. The classification and Diagnosis of Diabetes Diabetes Care 2021; 46: S19-S40. Current interpretive data was last revised 2022. Calcium 7.4(L) 8.5 - 10.3 mg/dL [facility] Blood 11/03/2024 8:33 AM CDT 11/03/2024 9:20 AM CDT Mar George MD LAB BLOOD OR DERABLES Final Result [facility] Department [place] [address] * eGFR (11/03/2024 12:15 AM CDT) [facility] eGFR >90 >=60 mL/min/1. 73 m2 Comment: Interpretive Data Reference Interval Normal >/= 90 mL/min/1.73m2 Mildly decreased* 60 - 89 mL/min/1.73m2 Mildly to moderately decreased 45 - 59 mL/min/1.73m2 Moderately to severely decreased 30 - 44 mL/min/1.73m2 Severely decreased 15 - 29 mL/min/1.73m2 Kidney Failure < 15 mL/min/1.73m2 *Relative to young adult level Estimated glomerular filtration rate is determined by the 2020 CKD-EPI equation recommended by the National Kidney Foundation (A Unifying Approach to GFR Estimation: Recommendations of the NKF-ASK Task Force on Reassessing the Inclusion of Race in Diagnosing Kidney Disease, JASN 2020). The CKD-EPI equation should not be used for patients with unstable renal function and has not been validated in children and those over 70. Current interpretive data was last reviewed 2021. Blood 11/03/2024 12:1 5 AM CDT 11/03/2024 1:51 AM CDT Mar George MD LAB BLOOD OR DERABLES Final Result Performing Organization Address City/[facility]/ZIP Co de Phone Number [facility] Department [place] [address] * Phosphorus (11/03/2024 12:15 AM CDT) Phosphorus, pl 2.9 2.3 - 4.5 mg/dL Blood 11/03/2024 12:1 5 AM CDT 11/03/2024 1:51 AM CDT Mar George MD LAB BLOOD OR DERABLES Final Result [facility] Department [place] [address] * Magnesium (11/03/2024 12:15 AM CDT) Magnesium 1.9 1.4 - 2.5 mg/dL Blood 11/03/2024 12:1 5 AM CDT 11/03/2024 1:51 AM CDT Mar George MD LAB BLOOD OR DERABLES Final Result [facility] Department [place] [address] * (ABNORMAL) Basic metabolic panel (11/03/2024 12:15 AM CDT) Pathologist [facility] Sodium 136 135 - 145 mmol/L Potassium, pl 3.9 3.3 - 4.9 mmol/L [facility] Chloride 98 97 - 110 mmol/L [facility] CO2 29 22 - 32 mmol/L [facility] Anion gap 9 2 - 15 mmol/L [facility] BUN 8 6 - 25 mg/dL [facility] Creatinine 0.52(L) 0.60 - 1.10 mg/dL [facility] Glucose 89 70 - 199 mg/dL [facility] Comment: Interpretive Data Fasting glucose >/= 126 mg/dl is diagnostic for diabetes. Fasting is defined as no caloric intake for at least 8 hours. Fasting glucose between 100 mg/dl to 125 mg/dl is diagnostic of prediabetes. In a patient with classic symptoms of hyperglycemia or hyperglycemic crisis, a random glucose >/= 200 mg/dl is diagnostic for diabetes. In the absence of unequivocal hyperglycemia, results should be confirmed by repeat testing. The classification and Diagnosis of Diabetes Diabetes Care 202; 46: S19-S40. Current interpretive data was last revised 2022. Calcium 7.6(L) 8.5 - 10.3 mg/dL [facility] Blood 11/03/2024 12:1 5 AM CDT 11/03/2024 1:51 AM CDT Mar George MD LAB BLOOD OR DERABLES Final Result [facility] Department [place] [address] * eGFR (11/02/2024 4:06 PM CDT) [facility] eGFR >90 >=60 mL/min/1. 73 m2 Comment: Interpretive Data Reference Interval Normal >/= 90 mL/min/1.73m2 Mildly decreased* 60 - 89 mL/min/1.73m2 Mildly to moderately decreased 45 - 59 mL/min/1.73m2 Moderately to severely decreased 30 - 44 mL/min/1.73m2 Severely decreased 15 - 29 mL/min/1.73m2 Kidney Failure < 15 mL/min/1.73m2 *Relative to young adult level Estimated glomerular filtration rate is determined by the 2020 CKD-EPI equation recommended by the National Kidney Foundation (A Unifying Approach to GFR Estimation: Recommendations of the NKF-ASK Task Force on Reassessing the Inclusion of Race in Diagnosing Kidney Disease, JASN 2020). The CKD-EPI equation should not be used for patients with unstable renal function and has not been validated in children and those over 70. Current interpretive data was last reviewed 2021. Blood 11/02/2024 4:06 PM CDT 11/02/2024 4:29 PM CDT Mar George MD LAB BLOOD OR DERABLES Final Result [facility] [place] [address] * Phosphorus (11/02/2024 4:06 PM CDT) Phosphorus, pl 2.7 2.3 - 4.5 mg/dL Blood 11/02/2024 4:06 PM CDT 11/02/2024 4:29 PM CDT Mar George MD LAB BLOOD OR DERABLES Final Result [facility] [place] [address] * Magnesium (11/02/2024 4:06 PM CDT) Magnesium 1.6 1.4 - 2.5 mg/dL Blood 11/02/2024 4:06 PM CDT 11/02/2024 4:29 PM CDT Mar George MD LAB BLOOD OR DERABLES Final Result [facility] Department [place] [address] * (ABNORMAL) Basic metabolic panel (11/02/2024 4:06 PM CDT) [facility] Sodium 137 135 - 145 mmol/L Potassium, pl 4.1 3.3 - 4.9 mmol/L [facility] Comment:Repeated and Verifie d Chloride 100 97 - 110 mmol/L [facility] CO2 29 22 - 32 mmol/L [facility] Anion gap 8 2 - 15 mmol/L [facility] BUN 9 6 - 25 mg/dL [facility] Creatinine 0.56(L) 0.60 - 1.10 mg/dL [facility] Glucose 118 70 - 199 mg/dL [facility] Comment: Interpretive Data Fasting glucose >/= 126 mg/dl is diagnostic for diabetes. Fasting is defined as no caloric intake for at least 8 hours. Fasting glucose between 100 mg/dl to 125 mg/dl is diagnostic of prediabetes. In a patient with classic symptoms of hyperglycemia or hyperglycemic crisis, a random glucose >/= 200 mg/dl is diagnostic for diabetes. In the absence of unequivocal hyperglycemia, results should be confirmed by repeat testing. The classification and Diagnosis of Diabetes Diabetes Care 2021; 46: S19-S40. Current interpretive data was last revised 2022. Calcium 7.5(L) 8.5 - 10.3 mg/dL [facility] Blood 11/02/2024 4:06 PM CDT 11/02/2024 4:29 PM CDT Mar George MD LAB BLOOD OR DERABLES Final Result [facility] Department [place] [address] * eGFR (11/02/2024 7:53 AM CDT) Pathologist [facility] eGFR >90 >=60 mL/min/1. 73 m2 Comment: Interpretive Data Reference Interval Normal >/= 90 mL/min/1.73m2 Mildly decreased* 60 - 89 mL/min/1.73m2 Mildly to moderately decreased 45 - 59 mL/min/1.73m2 Moderately to severely decreased 30 - 44 mL/min/1.73m2 Severely decreased 15 - 29 mL/min/1.73m2 Kidney Failure < 15 mL/min/1.73m2 *Relative to young adult level Estimated glomerular filtration rate is determined by the 2020 CKD-EPI equation recommended by the National Kidney Foundation (A Unifying Approach to GFR Estimation: Recommendations of the NKF-ASK Task Force on Reassessing the Inclusion of Race in Diagnosing Kidney Disease, JASN 2020). The CKD-EPI equation should not be used for patients with unstable renal function and has not been validated in children and those over 70. Current interpretive data was last reviewed 2021. Blood 11/02/2024 7:53 AM CDT 11/02/2024 8:07 AM CDT us Mar George MD LAB BLOOD OR DERABLES Final Result [facility] Department [place] [address] * (ABNORMAL) CBC without differential (11/02/2024 7:53 AM CDT) [facility] WBC 3.44(L) 3.80 - 9.90 K/cumm Hgb 10.0(L) 11.9 - 15.5 g/dL [facility] Hct 29.2(L) 35.6 - 45.5 % [facility] Plt 120(L) 150 - 400 K/cumm [facility] MPV 11.9 9.1 - 12.3 fL [facility] RBC 2.88(L) 3.90 - 5.20 M/cumm [facility] MCV 101.4(H) 81.3 - 96.4 fL [facility] MCH 34.7(H) 27.1 - 33.3 pg [facility] MCHC 34.2 32.3 - 35.7 g/dL [facility] RDW CV 15.0(H) 11.1 - 14.9 % [facility] RDW SD 54.9(H) 35.7 - 48.1 fL [facility] NRBC abs 0.00 0.00 - 0.01 K/cumm [facility] Blood 11/02/2024 7:53 AM CDT 11/02/2024 8:07 AM CDT Mar George MD LAB BLOOD OR DERABLES Final Result Performing Organization Address City/[facility]/ZIP Co de Phone Number [facility] [place] [address] * Phosphorus (11/02/2024 7:53 AM CDT) Phosphorus, pl 2.7 2.3 - 4.5 mg/dL Comment:Hemolyzed; result ma y be falsely elevated Blood 11/02/2024 7:53 AM CDT 11/02/2024 8:07 AM CDT Mar George MD LAB BLOOD OR DERABLES Final Result [facility] Department [place] [address] * Magnesium (11/02/2024 7:53 AM CDT) Magnesium 2.1 1.4 - 2.5 mg/dL Blood 11/02/2024 7:53 AM CDT 11/02/2024 8:07 AM CDT Mar George MD LAB BLOOD OR DERABLES Final Result Performing Organization Address [facility] de Phone Number [facility] [place] [address] * (ABNORMAL) Hepatic function panel (11/02/2024 7:53 AM CDT) Bilirubin, total 0.9 0.1 - 1.2 mg/dL Bilirubin, direct See Comment 0.1 - 0.3 mg/dL [facility] Comment: Credited; Hemolyzed Specimen Reviewed Protein, pl 4.9(L) 6.5 - 8.5 g/dL [facility] Albumin 2.1(L) 3.5 - 5.0 g/dL [facility] Alk phos 137(H) 40 - 130 Units/L [facility] Comment:Hemolyzed; result ma y be falsely decreased ALT See Comment 7 - 45 Units/L [facility] Comment: Credited; Hemolyzed Specimen Reviewed AST See Comment 10 - 45 Units/L [facility] Comment: Credited; Hemolyzed Specimen Reviewed Blood 11/02/2024 7:53 AM CDT 11/02/2024 8:07 AM CDT Mar George MD LAB BLOOD OR DERABLES Final Result Performing Organization Address [facility] de Phone Number [facility] Department [place] [address] * (ABNORMAL) Basic metabolic panel (11/02/2024 7:53 AM CDT) Pathologist [facility] Sodium 133(L) 135 - 145 mmol/L Potassium, pl See Comment 3.3 - 4.9 mmol/L [facility] Comment: Credited; Hemolyzed Specimen Repeated and Verified Chloride 100 97 - 110 mmol/L [facility] CO2 28 22 - 32 mmol/L [facility] Anion gap 5 2 - 15 mmol/L [facility] BUN 10 6 - 25 mg/dL [facility] Creatinine 0.62 0.60 - 1.10 mg/dL [facility] Glucose 105 70 - 199 mg/dL [facility] Comment: Interpretive Data Fasting glucose >/= 126 mg/dl is diagnostic for diabetes. Fasting is defined as no caloric intake for at least 8 hours. Fasting glucose between 100 mg/dl to 125 mg/dl is diagnostic of prediabetes. In a patient with classic symptoms of hyperglycemia or hyperglycemic crisis, a random glucose >/= 200 mg/dl is diagnostic for diabetes. In the absence of unequivocal hyperglycemia, results should be confirmed by repeat testing. The classification and Diagnosis of Diabetes Diabetes Care 2021; 46: S19-S40. Current interpretive data was last revised 2022. Calcium 8.2(L) 8.5 - 10.3 mg/dL [facility] Blood 11/02/2024 7:53 AM CDT 11/02/2024 8:07 AM CDT us Mar George MD LAB BLOOD OR DERABLES Final Result [facility] [place] [address] * ECG 12 lead (11/02/2024 6:38 AM CDT) Pathologist [facility] Ventricular Rate EKG/Min 78 BPM [facility] Atrial Rate [address] [facility] AR-Interval (MSEC) [address] [facility] QRS-Interval (MSEC) [address] [facility] QT-Interval (MSEC) [address] [facility] QTc [address] [facility] P Victoria [address] [facility] R [place] [address] [facility] T [place] [address] [facility] Diagnosis Normal sinus rhythm Low voltage: consider pericardial effusions, pulmonary disease, pleural effusion, obesity or infiltrative or dilated cardiomyop Nonspecific T wave abnormality Abnormal ECG When compared with ECG of 01-NOV-2024 06:33, (unconfirmed) No significant change was found Confirmed by BILLY CHACKO M.D ([id number]) on 11/02/2024 1:01:[address] [facility] 11/02/2024 6:38 AM CDT 11/02/2024 1:01 PM CDT Juliano Arredondo MD ECG ORDERABLES Fin al Result [facility] * eGFR (11/01/2024 11:50 PM CDT) eGFR >90 >=60 mL/min/1. 73 m2 Comment: Interpretive Data Reference Interval Normal >/= 90 mL/min/1.73m2 Mildly decreased* 60 - 89 mL/min/1.73m2 Mildly to moderately decreased 45 - 59 mL/min/1.73m2 Moderately to severely decreased 30 - 44 mL/min/1.73m2 Severely decreased 15 - 29 mL/min/1.73m2 Kidney Failure < 15 mL/min/1.73m2 *Relative to young adult level Estimated glomerular filtration rate is determined by the 2020 CKD-EPI equation recommended by the National Kidney Foundation (A Unifying Approach to GFR Estimation: Recommendations of the NKF-ASK Task Force on Reassessing the Inclusion of Race in Diagnosing Kidney Disease, JASN 2020). The CKD-EPI equation should not be used for patients with unstable renal function and has not been validated in children and those over 70. Current interpretive data was last reviewed 2021. Blood 11/01/2024 11:5 0 PM CDT 11/02/2024 1:50 AM CDT Mar George MD LAB BLOOD OR DERABLES Final Result [facility] [place] [address] * Phosphorus (11/01/2024 11:50 PM CDT) Phosphorus, pl 2.4 2.3 - 4.5 mg/dL Blood 11/01/2024 11:5 0 PM CDT 11/02/2024 1:50 AM CDT Mar George MD LAB BLOOD OR DERABLES Final Result [facility] [place] [address] * (ABNORMAL) Magnesium (11/01/2024 11:50 PM CDT) Pathologist [facility] Magnesium 3.2(H) 1.4 - 2.5 mg/dL Comment:Reviewed Blood 11/01/2024 11:5 0 PM CDT 11/02/2024 1:50 AM CDT Mar George MD LAB BLOOD OR DERABLES Final Result Performing Organization Address [facility] Co de Phone Number [facility] [place] [address] * (ABNORMAL) Basic metabolic panel (11/01/2024 11:50 PM CDT) Pathologist [facility] Sodium 136 135 - 145 mmol/L Potassium, pl 3.5 3.3 - 4.9 mmol/L [facility] Chloride 99 97 - 110 mmol/L [facility] CO2 28 22 - 32 mmol/L [facility] Anion gap 9 2 - 15 mmol/L [facility] BUN 11 6 - 25 mg/dL [facility] Creatinine 0.69 0.60 - 1.10 mg/dL [facility] Glucose 86 70 - 199 mg/dL [facility] Comment: Interpretive Data Fasting glucose >/= 126 mg/dl is diagnostic for diabetes. Fasting is defined as no caloric intake for at least 8 hours. Fasting glucose between 100 mg/dl to 125 mg/dl is diagnostic of prediabetes. In a patient with classic symptoms of hyperglycemia or hyperglycemic crisis, a random glucose >/= 200 mg/dl is diagnostic for diabetes. In the absence of unequivocal hyperglycemia, results should be confirmed by repeat testing. The classification and Diagnosis of Diabetes Diabetes Care 2021; 46: S19-S40. Current interpretive data was last revised 2022. Calcium 7.7(L) 8.5 - 10.3 mg/dL [facility] [facility] Blood 11/01/2024 11:5 0 PM CDT 11/02/2024 1:50 AM CDT Result [facility] Mar George MD LAB BLOOD OR DERABLES Final Result Performing Organization Address [facility] Co de Phone Number [facility] [place] [address] * (ABNORMAL) Copper, serum (11/01/2024 8:27 PM CDT) Copper 64(L) 77 - 206 mcg/dL [place] [facility] Comment: ADDITIONAL INFORMATION This test was developed and its performance characteristics determined by [facility] in a manner consistent with CLIA requirements. This test has not been cleared or approved by the U.S. Food and Drug Administration. Test Performed by: [facility] [place] [address] [employer]el [employer] Operator: Kimberley Hurtado Ph.D.; CLIA# [id number] Blood 11/01/2024 8:27 PM CDT 11/01/2024 10:06 PM CDT Narrative [facility] - 11/05/2024 11:58 AM CDT sent 2.0 mls metal free serum Evonne Baer MD LAB BLOOD ORDERABLES Krystyna l Result Performing Organization Address City/[facility] Co de Phone Number [facility] [place] [address] [facility] * (ABNORMAL) CBC without differential (11/01/2024 8:27 PM CDT) WBC 3.66(L) 3.80 - 9.90 K/cumm Hgb 9.3(L) 11.9 - 15.5 g/dL [facility] Hct 27.1(L) 35.6 - 45.5 % [facility] Plt 83(L) 150 - 400 K/cumm [facility] MPV 11.7 9.1 - 12.3 fL [facility] RBC 2.69(L) 3.90 - 5.20 M/cumm [facility] MCV 100.7(H) 81.3 - 96.4 fL [facility] MCH 34.6(H) 27.1 - 33.3 pg [facility] MCHC 34.3 32.3 - 35.7 g/dL [facility] RDW CV 15.1(H) 11.1 - 14.9 % [facility] RDW SD 55.7(H) 35.7 - 48.1 fL [facility] NRBC abs 0.00 0.00 - 0.01 K/cumm [facility] Blood 11/01/2024 8:27 PM CDT 11/01/2024 9:48 PM CDT Mar George MD LAB BLOOD OR DERABLES Final Result [facility] [place] [address] * Immature platelet fraction (11/01/2024 5:28 PM CDT) [facility] IPF 6.6 1.6 - 10.1 % Blood 11/01/2024 5:28 PM CDT 11/01/2024 6:47 PM CDT Mar George MD LAB BLOOD OR DERABLES Final Result [facility] [place] [address] * eGFR (11/01/2024 5:28 PM CDT) [facility] eGFR >90 >=60 mL/min/1. 73 m2 Comment: Interpretive Data Reference Interval Normal >/= 90 mL/min/1.73m2 Mildly decreased* 60 - 89 mL/min/1.73m2 Mildly to moderately decreased 45 - 59 mL/min/1.73m2 Moderately to severely decreased 30 - 44 mL/min/1.73m2 Severely decreased 15 - 29 mL/min/1.73m2 Kidney Failure < 15 mL/min/1.73m2 *Relative to young adult level Estimated glomerular filtration rate is determined by the 2020 CKD-EPI equation recommended by the National Kidney Foundation (A Unifying Approach to GFR Estimation: Recommendations of the NKF-ASK Task Force on Reassessing the Inclusion of Race in Diagnosing Kidney Disease, JASN 2020). The CKD-EPI equation should not be used for patients with unstable renal function and has not been validated in children and those over 70. Current interpretive data was last reviewed 2021. Blood 11/01/2024 5:28 PM CDT 11/01/2024 6:43 PM CDT us Mar George MD LAB BLOOD OR DERABLES Final Result [facility] [place] [address] * (ABNORMAL) Differential, auto (11/01/2024 5:28 PM CDT) Neutrophil abs 1.02(L) 1.50 - 6.50 K/cumm Imm gran abs 0.01 0.00 - 0.10 K/cumm [facility] Lymphocyte abs 0.87 0.80 - 3.30 K/cumm [facility] Monocyte abs 0.03(L) 0.20 - 0.80 K/cumm [facility] Eosinophil abs 0.01 0.00 - 0.50 K/cumm [facility] Basophil abs 0.01 0.00 - 0.10 K/cumm [facility] Neutrophil pct 52.4 % [facility] Comment: Interpretive Data Percent cell count reference ranges are not reported, since discordance with absolute values may lead to misinterpretation of CBC data. Current Interpretive Data was last revised on 2017. Imm gran pct 0.5 % [facility] Comment: Interpretive Data Percent cell count reference ranges are not reported, since discordance with absolute values may lead to misinterpretation of CBC data. Current Interpretive Data was last revised on 2017. Lymphocyte pct 44.6 % [facility] Comment: Interpretive Data Percent cell count reference ranges are not reported, since discordance with absolute values may lead to misinterpretation of CBC data. Current Interpretive Data was last revised on 2017. Monocyte pct 1.5 % [facility] Comment: Interpretive Data Percent cell count reference ranges are not reported, since discordance with absolute values may lead to misinterpretation of CBC data. Current Interpretive Data was last revised on 2017. Eosinophil pct 0.5 % [facility] Comment: Interpretive Data Percent cell count reference ranges are not reported, since discordance with absolute values may lead to misinterpretation of CBC data. Current Interpretive Data was last revised on 2017. Basophil pct 0.5 % [facility] Comment: Interpretive Data Percent cell count reference ranges are not reported, since discordance with absolute values may lead to misinterpretation of CBC data. Current Interpretive Data was last revised on 2017. Blood 11/01/2024 5:28 PM CDT 11/01/2024 6:44 PM CDT us Mar George MD LAB BLOOD OR DERABLES Final Result [facility] [place] [address] * (ABNORMAL) CBC with auto differential (11/01/2024 5:28 PM CDT) WBC 1.98(L) 3.80 - 9.90 K/cumm Hgb 9.8(L) 11.9 - 15.5 g/dL [facility] Hct 28.5(L) 35.6 - 45.5 % [facility] Plt 21(C) 150 - 400 K/cumm [facility] Comment:No clot detected in sample. Platelet count confirmed by additional testing. Critical platelet count threshold determined by patient location: Outpatient:<50 K/cumm , Inpatient adults:<20 K/cumm , Inpatient pediatric:<25 K/cumm, BMT service:<10 K/cumm MPV 12.2 9.1 - 12.3 fL [facility] RBC 2.81(L) 3.90 - 5.20 M/cumm [facility] MCV 101.4(H) 81.3 - 96.4 fL [facility] MCH 34.9(H) 27.1 - 33.3 pg [facility] MCHC 34.4 32.3 - 35.7 g/dL [facility] RDW CV 15.0(H) 11.1 - 14.9 % [facility] RDW SD 56.0(H) 35.7 - 48.1 fL [facility] NRBC abs 0.00 0.00 - 0.01 K/cumm [facility] Blood 11/01/2024 5:28 PM CDT 11/01/2024 6:44 PM CDT us Mar George MD LAB BLOOD OR DERABLES Final Result [facility] [place] [address] * Phosphorus (11/01/2024 5:28 PM CDT) Pathologist [facility] Phosphorus, pl 3.0 2.3 - 4.5 mg/dL Blood 11/01/2024 5:28 PM CDT 11/01/2024 6:43 PM CDT Mar George MD LAB BLOOD OR DERABLES Final Result [facility] [place] [address] * Magnesium (11/01/2024 5:28 PM CDT) Pathologist [facility] Magnesium 1.5 1.4 - 2.5 mg/dL Blood 11/01/2024 5:28 PM CDT 11/01/2024 6:43 PM CDT Mar George MD LAB BLOOD OR DERABLES Final Result [facility] [place] [address] * (ABNORMAL) Basic metabolic panel (11/01/2024 5:28 PM CDT) Pathologist [facility] Sodium 140 135 - 145 mmol/L Potassium, pl 3.7 3.3 - 4.9 mmol/L [facility] Chloride 102 97 - 110 mmol/L [facility] CO2 29 22 - 32 mmol/L [facility] Anion gap 9 2 - 15 mmol/L [facility] BUN 11 6 - 25 mg/dL [facility] Creatinine 0.78 0.60 - 1.10 mg/dL [facility] Glucose 85 70 - 199 mg/dL [facility] Comment: Interpretive Data Fasting glucose >/= 126 mg/dl is diagnostic for diabetes. Fasting is defined as no caloric intake for at least 8 hours. Fasting glucose between 100 mg/dl to 125 mg/dl is diagnostic of prediabetes. In a patient with classic symptoms of hyperglycemia or hyperglycemic crisis, a random glucose >/= 200 mg/dl is diagnostic for diabetes. In the absence of unequivocal hyperglycemia, results should be confirmed by repeat testing. The classification and Diagnosis of Diabetes Diabetes Care 2021; 46: S19-S40. Current interpretive data was last revised 2022. Calcium 7.6(L) 8.5 - 10.3 mg/dL [facility] Blood 11/01/2024 5:28 PM CDT 11/01/2024 6:43 PM CDT Mar George MD LAB BLOOD OR DERABLES Final Result Performing Organization Address City/[facility]/ZIP Co de Phone Number [facility] [place] [address] * CT Chest W Contrast (11/01/2024 2:24 PM CDT) Anatomical Region Laterality Modality Body N/A Computed Tomogra phy 11/01/2024 2:36 PM CDT Impressions 11/01/2024 2:36 PM CDT 1. No left ventricular thrombus is identified 2. Small bilateral pleural effusions with findings of pneumonia in the left lower and left upper lobe. Electronically signed by: Rebeca Walker M.D. Narrative 11/01/2024 2:36 PM CDT EXAMINATION: Computed tomography of the chest with intravenous contrast HISTORY: Concern for left ventricular thrombus TECHNIQUE: Transaxial computed tomographic images of the chest were obtained with intravenous contrast according to the standard protocol after the uneventful administration of 100 mL Opti-Ray 350 intravenous contrast. COMPARISON: None available FINDINGS: There is no supraclavicular, axillary, mediastinal, or hilar lymphadenopathy. The heart is upper limits of normal in size. There is no left ventricular thrombus identified. No pericardial effusion. There are small bilateral pleural effusions. Consolidations in the left upper and left lower lobe are most consistent with pneumonia. Limited evaluation of the upper abdomen demonstrates findings of hepatic steatosis. No suspicious osseous lesion. Procedure Note Rebeca Walker MD - 11/01/2024 EXAMINATION: Computed tomography of the chest with intravenous contrast HISTORY: Concern for left ventricular thrombus TECHNIQUE: Transaxial computed tomographic images of the chest were obtained with intravenous contrast according to the standard protocol after the uneventful administration of 100 mL Opti-Ray 350 intravenous contrast. COMPARISON: None available FINDINGS: There is no supraclavicular, axillary, mediastinal, or hilar lymphadenopathy. The heart is upper limits of normal in size. There is no left ventricular thrombus identified. No pericardial effusion. There are small bilateral pleural effusions. Consolidations in the left upper and left lower lobe are most consistent with pneumonia. Limited evaluation of the upper abdomen demonstrates findings of hepatic steatosis. No suspicious osseous lesion. IMPRESSION: 1. No left ventricular thrombus is identified 2. Small bilateral pleural effusions with findings of pneumonia in the left lower and left upper lobe. Electronically signed by: Rebeca Walker M.D. Mar George MD IMG CT PROCE DURES Final Result * C. difficile testing Stool (11/01/2024 11:33 AM CDT) [facility] Result Negative Negative Toxin Result Negative Negative [facility] C. diff result Negative, free toxin Negative, free toxin [facility] C. diff interp Negative for toxigenic Clostridioides (Clostridium) difficile. Analysis was performed using a glutamate dehydrogenase antigen detection assay combined with a C. difficile toxin detection assay. [facility] Stool 11/01/2024 11:3 3 AM CDT 11/01/2024 1:15 PM CDT Mar George MD LAB MICROBIOLOGY - GENERAL ORDERABLES Final Result Performing Organization Address [facility] de Phone Number [facility] [place] [address] * (ABNORMAL) Infection Prevention VRE Culture Stool (11/01/2024 11:33 AM CDT) Report Final Report: Enterococcus species, vancomycin resistant (.) Organism ENTEROCOCCUS SPECIES, VANCOMYCIN RESISTANT [facility] Stool 11/01/2024 11:3 3 AM CDT 11/01/2024 2:56 PM CDT Narrative [facility] - 11/03/2024 10:12 PM CDT Surveillance culture for Infection Prevention purposes only; results indicate colonization, not infection requiring treatment. Testing performed by [facility] ([phone]). Mar George MD LAB MICROBIOLOGY - GENERAL ORDERABLES Final Result Performing Organization Address [facility]/ZIP Co de Phone Number [facility] [place] [address] * TRANSTHORACIC ECHO (TTE) COMPLETE W DOPPLER/CF W CONTRAST (11/01/2024 10:52 AM CDT) Anatomical Region Laterality Modality Ultrasound 11/01/2024 10:0 2 AM CDT Narrative 11/01/2024 12:28 PM CDT [facility] Cardiac [place] [address] Transthoracic Echocardiographic Report ADDENDUM Patient Name: HAYLEY LEÓN L : 1990 (34y 8m) Gender: F Study Date: 11/01/2024 10:02:50 AM Ht(Inch): 61 Wt(Lb): 87.96 BSA: 1.31 Debt Management Counselor: Sofia Campos RDCS Location: [id number] Order Provider: ANGELA RAMIREZ Heart Rate: 90 BMI: 16.62 BP: 110 / 77 Ref Provider: ANGELA RAMIREZ PROCEDURES: Echocardiographic Report: Transthoracic complete echo with strain imaging and contrast, 2D, spectral and tissue Doppler, color flow Doppler, M-mode. Contrast: Contrast Enhancement was Employed: After initial imaging due to sub- optimal quality related to co-morbidity defined by patient's body habitus and due to suboptimal image quality with inadequate visualization of at least 2 of 16 LV wall segments in any view after initial imaging. Perflutren contrast was administered using the volume necessary to obtain adequate images. 0.8 ml Optison Administered, (2.2 ml wasted). INDICATIONS: Heart Failure. CONCLUSIONS: 1. Normal left ventricular size based on volume index. The Ejection Fraction (Moon's) is measured at 56 %. There is a thrombus vs aberrant chord/papillary muscle by the anteroseptal wall. Correlate with a CT chest. 2. There is hypokinesis of the mid anteroseptal wall. 3. Normal right ventricular size. Normal right ventricular systolic function. 4. There is no significant valvular heart disease. 5. Normal pericardium without pericardial effusion. 6. Normal aortic root. 7. IVC is normal in size. 8. The Estimated PASP is : 16mmHg+RA pressure. ATTESTATION: I have personally reviewed and interpreted this study without fellow or resident. - DISCLAIMER: The study images and the final report will be retained in the patient chart by the Echo Laboratory for the legally required time period. This chart constitutes the legal record of any testing performed. FINDINGS: Left Ventricle: Normal left ventricular size based on volume index. Normal LV wall thickness. Normal left ventricular systolic function. The Ejection Fraction (Moon's) is measured at 56 %. The average global longitudinal strain is borderline. The LV global strain is: -18.0 %. There is a thrombus vs aberrant chord/papillary muscle by the anteroseptal wall. Correlate with a CT chest. Resting Segmental Wall Motion Analysis: Total wall motion score is 2.00. There is hypokinesis of the mid anteroseptal wall. Right Ventricle: Normal right ventricular size. Normal right ventricular systolic function. Left Atrium: The left atrium is normal in size. Right Atrium: The right atrium is normal in size. Mitral Valve: Normal mitral valve structure. No mitral regurgitation. No stenosis present. Aortic Valve: Normal trileaflet aortic valve. No aortic regurgitation. No aortic valve stenosis. Tricuspid Valve: Normal tricuspid valve structure. No tricuspid regurgitation. No tricuspid valve stenosis. Pulmonic Valve: Normal pulmonic valve structure. No pulmonic regurgitation. No pulmonic valve stenosis present. Pericardium: Normal pericardium without pericardial effusion. Aorta: Normal aortic root. IVC: IVC is normal in size. PASP: The Estimated PASP is : 16+Rap mmHg. Rhythm: Normal Sinus rhythm was seen during the study. MEASUREMENTS: 2D/MM Value Range Doppler Value Range LVIDd 2D 3.71 cm [ 3.80 - 5.20 ] AV Peak Alvaro 0.7 m/s [ 1.0 - 1.7 ] LVIDs 2D 2.67 cm [ 2.20 - 3.50 ] AV Peak PG 1.96 mmHg IVSd 2D 0.61 cm [ 0.60 - 0.90 ] AV Mean PG 2 mmHg LVPWd 2D 0.63 cm [ 0.60 - 0.90 ] AV VTI 15.9 cm LV Thickness Ratio 1.0 LVOT Peak Alvaro 0.7 m/s [ 0.7 - 1.1 ] LV FS 2D 28.02 % [ 27.00 - 45.00 ] LVOT Peak PG 1.96 mmHg LV Mass 2D 60.66 g LVOT Mean PG 1 mmHg LV Mass Index 2D 46.31 g/m2 LVOT VTI 13.4 cm RWT 0.34 LVOT Diam 1.95 cm EDV Mod BP 72.00 ml [ 46.00 - 106.00 ] JT VTI 2.52 cm2 LV EDV Index 54.96 ml/m2 LVOT/AV VTI 0.84 - Dimensionless index (DVI) ESV Mod BP 32.00 ml [ 14.00 - 42.00 ] MV E Peak Alvaro 0.8 m/s [ 0.6 - 1.3 ] EF Mod BP 56 % [ 54 - 74 ] MV A Peak Alvaro 0.6 m/s [ 1.0 - 1.2 ] LV GLS -18.0 % [ -25.0 - -18.0 ] MV E/A 1.4 ratio [ 0.8 - 1.5 ] LA Length 4C 3.24 cm MV Decel Time 140.60 msec [ 104.00 - 258.00 ] LA Length 2C 3.65 cm Med E` Alvaro 10.4 cm/sec [ 8.0 - 25.0 ] LA Volume BP 13.91 ml Lat E` Alvaro 13.5 cm/sec [ 10.0 - 25.0 ] LA Volume Index 10.62 ml/m2 [ 16.00 - 34.00 ] Average E/E` 6.69 RV Base Dimen 2D 3.0 cm [ 2.5 - 4.2 ] RV S` 15.19 cm/sec TAPSE 1.97 cm [ 1.71 - 5.00 ] TR Peak Alvaro 2.0 m/s [ 1.0 - 2.8 ] RA Volume 18.67 ml TR Peak PG 16.0 mmHg RA Volume Index 14.25 ml/m2 PV Peak Alvaro 0.5 m/s [ 0.4 - 0.8 ] IVC Diam 1.57 cm PV Peak PG 1.00 mmHg AoR Diam 2D 2.69 cm [ 2.70 - 3.70 ] Ao Root Index 2.05 cm/m2 [ 1.00 - 2.00 ] Electronically Signed By: Gustabo Mcdaniels MD 2024-11-01 12:28:02 CDT Electronically Amended By: Gustabo Mcdaniels MD 11/01/2024 2:20:21 PM CDT [ADDENDUM] Procedure Note Gustabo Mcdaniels MD - 11/01/2024 [facility] Cardiac [place] [address] Transthoracic Echocardiographic Report ADDENDUM Patient Name: HAYLEY LENÓ L : 1990 (34y 8m) Gender: F Study Date: 11/01/2024 10:02:50 AM Ht(Inch): 61 Wt(Lb): 87.96 BSA: 1.31 Debt Management Counselor: Sofia Campos RDCS Location: [id number] Order Provider:ANGELA RAMIREZ Heart Rate: 90 BMI: 16.62 BP: 110 / 77 Ref Provider: ANGELA RAMIREZ PROCEDURES: Echocardiographic Report: Transthoracic complete echo with strain imagingand contrast, 2D, spectral and tissue Doppler, color flow Doppler, M-mode. Contrast: Contrast Enhancement was Employed: After initial imaging due tosub- optimal quality related to co-morbidity defined by patient's body habitus and dueto suboptimal image quality with inadequate visualization of at least 2 of 16 LV wallsegments in any view after initial imaging. Perflutren contrast was administered using thevolume necessary to obtain adequate images. 0.8 ml Optison Administered, (2.2 mlwasted). INDICATIONS: Heart Failure. CONCLUSIONS: 1. Normal left ventricular size based on volume index. The EjectionFraction (Moon's) is measured at 56 %. There is a thrombus vs aberrant chord/papillarymuscle by the anteroseptal wall. Correlate with a CT chest. 2. There is hypokinesis of the mid anteroseptal wall. 3. Normal right ventricular size. Normal right ventricular systolicfunction. 4. There is no significant valvular heart disease. 5. Normal pericardium without pericardial effusion. 6. Normal aortic root. 7. IVC is normal in size. 8. The Estimated PASP is : 16mmHg+RA pressure. ATTESTATION: I have personally reviewed and interpreted this study without fellow orresident. - DISCLAIMER: The study images and the final report will be retained in the patientchart by the Echo Laboratory for the legally required time period. This chart constitutesthe legal record of any testing performed. FINDINGS: Left Ventricle: Normal left ventricular size based on volume index. NormalLV wall thickness. Normal left ventricular systolic function. The EjectionFraction (Moon's) is measured at 56 %. The average global longitudinal strain is borderline.The LV global strain is: -18.0 %. There is a thrombus vs aberrant chord/papillary muscleby the anteroseptal wall. Correlate with a CT chest. Resting Segmental Wall Motion Analysis: Total wall motion score is 2.00.There is hypokinesis of the mid anteroseptal wall. Right Ventricle: Normal right ventricular size. Normal right ventricularsystolic function. Left Atrium: The left atrium is normal in size. Right Atrium: The right atrium is normal in size. Mitral Valve: Normal mitral valve structure. No mitral regurgitation. Nostenosis present. Aortic Valve: Normal trileaflet aortic valve. No aortic regurgitation. Noaortic valve stenosis. Tricuspid Valve: Normal tricuspid valve structure. No tricuspidregurgitation. No tricuspid valve stenosis. Pulmonic Valve: Normal pulmonic valve structure. No pulmonicregurgitation. No pulmonic valve stenosis present. Pericardium: Normal pericardium without pericardial effusion. Aorta: Normal aortic root. IVC: IVC is normal in size. PASP: The Estimated PASP is : 16+Rap mmHg. Rhythm: Normal Sinus rhythm was seen during the study. MEASUREMENTS: 2D/MM Value Range DopplerValue Range LVIDd 2D 3.71 cm [ 3.80 - 5.20 ] AV Peak Vel0.7 m/s [ 1.0 - 1.7 ] LVIDs 2D 2.67 cm [ 2.20 - 3.50 ] AV Peak PG1.96 mmHg IVSd 2D 0.61 cm [ 0.60 - 0.90 ] AV Mean PG2 mmHg LVPWd 2D 0.63 cm [ 0.60 - 0.90 ] AV VTI15.9 cm LV Thickness Ratio 1.0 LVOT Peak Vel0.7 m/s [ 0.7 - 1.1 ] LV FS 2D 28.02 % [ 27.00 - 45.00 ] LVOT Peak PG1.96 mmHg LV Mass 2D 60.66 g LVOT Mean PG1 mmHg LV Mass Index 2D 46.31 g/m2 LVOT VTI13.4 cm RWT 0.34 LVOT Diam1.95 cm EDV Mod BP 72.00 ml [ 46.00 - 106.00 ] JT VTI2.52 cm2 LV EDV Index 54.96 ml/m2 LVOT/AV VTI0.84 - Dimensionless index (DVI) ESV Mod BP 32.00 ml [ 14.00 - 42.00 ] MV E Peak Vel0.8 m/s [ 0.6 - 1.3 ] EF Mod BP 56 % [ 54 - 74 ] MV A Peak Vel0.6 m/s [ 1.0 - 1.2 ] LV GLS -18.0 % [ -25.0 - -18.0 ] MV E/A1.4 ratio [ 0.8 - 1.5 ] LA Length 4C 3.24 cm MV Decel Ivoa000.60 msec [ 104.00 - 258.00 ] LA Length 2C 3.65 cm Med E` Vel10.4 cm/sec [ 8.0 - 25.0 ] LA Volume BP 13.91 ml Lat E` Vel13.5 cm/sec [ 10.0 - 25.0 ] LA Volume Index 10.62 ml/m2 [ 16.00 - 34.00 ] Average E/E`6.69 RV Base Dimen 2D 3.0 cm [ 2.5 - 4.2 ] RV S`15.19 cm/sec TAPSE 1.97 cm [ 1.71 - 5.00 ] TR Peak Vel2.0 m/s [ 1.0 - 2.8 ] RA Volume 18.67 ml TR Peak PG16.0 mmHg RA Volume Index 14.25 ml/m2 PV Peak Vel0.5 m/s [ 0.4 - 0.8 ] IVC Diam 1.57 cm PV Peak PG1.00 mmHg AoR Diam 2D 2.69 cm [ 2.70 - 3.70 ] Ao Root Index 2.05 cm/m2 [ 1.00 - 2.00 ] Electronically Signed By: Gustabo Mcdaniels MD 2024-11-01 12:28:02 CDT Electronically Amended By: Gustabo Mcdaniels MD 11/01/2024 2:20:21 PM CDT [ADDENDUM] us Angela Ramirez MD CV ECHO PROCEDURES Edite d Result - Final * eGFR (11/01/2024 9:03 AM CDT) eGFR >90 >=60 mL/min/1. 73 m2 Comment: Interpretive Data Reference Interval Normal >/= 90 mL/min/1.73m2 Mildly decreased* 60 - 89 mL/min/1.73m2 Mildly to moderately decreased 45 - 59 mL/min/1.73m2 Moderately to severely decreased 30 - 44 mL/min/1.73m2 Severely decreased 15 - 29 mL/min/1.73m2 Kidney Failure < 15 mL/min/1.73m2 *Relative to young adult level Estimated glomerular filtration rate is determined by the 2020 CKD-EPI equation recommended by the National Kidney [employer] (A Unifying Approach to GFR Estimation: Recommendations of the NKF-ASK Task Force on Reassessing the Inclusion of Race in Diagnosing Kidney Disease, JASN 2020). The CKD-EPI equation should not be used for patients with unstable renal function and has not been validated in children and those over 70. Current interpretive data was last reviewed 2021. Blood 11/01/2024 9:03 AM CDT 11/01/2024 10:23 AM CDT Mar George MD LAB BLOOD OR DERABLES Final Result Performing Organization Address [facility] Co de Phone Number [facility] [place] [address] * Phosphorus (11/01/2024 9:03 AM CDT) Phosphorus, pl 3.3 2.3 - 4.5 mg/dL Blood 11/01/2024 9:03 AM CDT 11/01/2024 10:23 AM CDT Mar George MD LAB BLOOD OR DERABLES Final Result Performing Organization Address [facility] de Phone Number [facility] [place] [address] * Magnesium (11/01/2024 9:03 AM CDT) Magnesium 2.0 1.4 - 2.5 mg/dL Blood 11/01/2024 9:03 AM CDT 11/01/2024 10:23 AM CDT Mar George MD LAB BLOOD OR DERABLES Final Result Performing Organization Address [facility] [place] [address] * (ABNORMAL) Hepatic function panel (11/01/2024 9:03 AM CDT) Bilirubin, total 1.2 0.1 - 1.2 mg/dL Bilirubin, direct 0.7(H) 0.1 - 0.3 mg/dL [facility] Protein, pl 5.4(L) 6.5 - 8.5 g/dL [facility] Albumin 2.7(L) 3.5 - 5.0 g/dL [facility] Alk phos 133(H) 40 - 130 Units/L [facility] ALT 107(H) 7 - 45 Units/L [facility] AST 308(H) 10 - 45 Units/L [facility] Blood 11/01/2024 9:03 AM CDT 11/01/2024 10:23 AM CDT Mar George MD LAB BLOOD OR DERABLES Final Result [facility] One [facility] Department [place] [address] * (ABNORMAL) Basic metabolic panel (11/01/2024 9:03 AM CDT) Sodium 143 135 - 145 mmol/L Potassium, pl 3.7 3.3 - 4.9 mmol/L [facility] Chloride 103 97 - 110 mmol/L [facility] CO2 27 22 - 32 mmol/L [facility] Anion gap 13 2 - 15 mmol/L [facility] BUN 11 6 - 25 mg/dL [facility] Creatinine 0.80 0.60 - 1.10 mg/dL [facility] Glucose 73 70 - 199 mg/dL [facility] Comment: Interpretive Data Fasting glucose >/= 126 mg/dl is diagnostic for diabetes. Fasting is defined as no caloric intake for at least 8 hours. Fasting glucose between 100 mg/dl to 125 mg/dl is diagnostic of prediabetes. In a patient with classic symptoms of hyperglycemia or hyperglycemic crisis, a random glucose >/= 200 mg/dl is diagnostic for diabetes. In the absence of unequivocal hyperglycemia, results should be confirmed by repeat testing. The classification and Diagnosis of Diabetes Diabetes Care 202; 46: S19-S40. Current interpretive data was last revised 2022. Calcium 8.2(L) 8.5 - 10.3 mg/dL [facility] Blood 11/01/2024 9:03 AM CDT 11/01/2024 10:23 AM CDT us Mar George MD LAB BLOOD OR DERABLES Final Result [facility] One [facility] [place] [address] * ECG 12 lead (11/01/2024 6:33 AM CDT) Ventricular Rate EKG/Min 80 BPM [facility] Atrial Rate [address] [facility] AR-Interval (MSEC) [address] [facility] QRS-Interval (MSEC) 50 ms [facility] QT-Interval (MSEC) [address] [facility] QTc [address] [facility] P [place] [address] [facility] R [place] [address] [facility] T [place] [address] [facility] Diagnosis Sinus rhythm with short AR Low voltage QRS Nonspecific ST and T wave abnormality Abnormal ECG Confirmed by Arslan LANG [facility] ([id number]) on 11/02/2024 8:44:[address] [facility] 11/01/2024 6:33 AM CDT 11/02/2024 8:44 AM CDT us Juliano Arredondo MD ECG ORDERABLES Fin al Result Performing Organization Address City/[facility]/ZIP Co de Phone Number [facility] * eGFR (11/01/2024 12:24 AM CDT) eGFR >90 >=60 mL/min/1. 73 m2 Comment: Interpretive Data Reference Interval Normal >/= 90 mL/min/1.73m2 Mildly decreased* 60 - 89 mL/min/1.73m2 Mildly to moderately decreased 45 - 59 mL/min/1.73m2 Moderately to severely decreased 30 - 44 mL/min/1.73m2 Severely decreased 15 - 29 mL/min/1.73m2 Kidney Failure < 15 mL/min/1.73m2 *Relative to young adult level Estimated glomerular filtration rate is determined by the 2020 CKD-EPI equation recommended by the National Kidney Foundation (A Unifying Approach to GFR Estimation: Recommendations of the NKF-ASK Task Force on Reassessing the Inclusion of Race in Diagnosing Kidney Disease, JASN 2020). The CKD-EPI equation should not be used for patients with unstable renal function and has not been validated in children and those over 70. Current interpretive data was last reviewed 2021. Blood 11/01/2024 12:2 4 AM CDT 11/01/2024 12:43 AM CDT us Mar George MD LAB BLOOD OR DERABLES Final Result Performing Organization Address City/[facility] Co de Phone Number [facility] [place] [address] * (ABNORMAL) Phosphorus (11/01/2024 12:24 AM CDT) Phosphorus, pl 1.4(L) 2.3 - 4.5 mg/dL Blood 11/01/2024 12:2 4 AM CDT 11/01/2024 12:43 AM CDT Mar George MD LAB BLOOD OR DERABLES Final Result Performing Organization Address [facility] Co de Phone Number [facility] [place] [address] * Magnesium (11/01/2024 12:24 AM CDT) Magnesium 2.2 1.4 - 2.5 mg/dL Blood 11/01/2024 12:2 4 AM CDT 11/01/2024 12:43 AM CDT Mar George MD LAB BLOOD OR DERABLES Final Result Performing Organization Address City/[facility] Co de Phone Number [facility] [place] [address] * Basic metabolic panel (11/01/2024 12:24 AM CDT) Pathologist [facility] Sodium 139 135 - 145 mmol/L Potassium, pl 4.3 3.3 - 4.9 mmol/L [facility] Comment:Hemolyzed; Potassium value may be falsely elevated by as much as 0.6-1.0 mmol/L. Suggest redraw and reanalysis. Chloride 105 97 - 110 mmol/L [facility] CO2 26 22 - 32 mmol/L [facility] Anion gap 8 2 - 15 mmol/L [facility] BUN 10 6 - 25 mg/dL [facility] Creatinine 0.80 0.60 - 1.10 mg/dL [facility] Glucose 88 70 - 199 mg/dL [facility] Comment: Interpretive Data Fasting glucose >/= 126 mg/dl is diagnostic for diabetes. Fasting is defined as no caloric intake for at least 8 hours. Fasting glucose between 100 mg/dl to 125 mg/dl is diagnostic of prediabetes. In a patient with classic symptoms of hyperglycemia or hyperglycemic crisis, a random glucose >/= 200 mg/dl is diagnostic for diabetes. In the absence of unequivocal hyperglycemia, results should be confirmed by repeat testing. The classification and Diagnosis of Diabetes Diabetes Care 2021; 46: S19-S40. Current interpretive data was last revised 2022. Calcium 8.5 8.5 - 10.3 mg/dL [facility] Blood 11/01/2024 12:2 4 AM CDT 11/01/2024 12:43 AM CDT Mar George MD LAB BLOOD OR DERABLES Final Result [facility] One [facility] [place] [address] * Norovirus PCR Stool (10/31/2024 5:27 PM CDT) [facility] Norovirus GI RNA Not Detected Not Detected [facility] Norovirus GII RNA Not Detected Not Detected [facility] Comment: Interpretive data: Testing performed at the [facility] using the Insync Xpert Norovirus Assay. This assay uses nucleic acid amplification to detect RNA from norovirus. This test is cleared by the [place] Food and Drug Administration for unformed stool specimens. The performance characteristics for unformed stool specimens have been verified by the performing laboratory. The performance characteristics of rectal swab specimens have also been validated and verified by the performing laboratory. Positive Xpert Norovirus results do not rule out other causes of infectious diarrhea. Assay interference may be observed in the presence of Barium sulfate and Benzalkonium chloride. Mutations or polymorphisms in primer or probe binding regions may affect detection of new or unknown norovirus variants resulting in a false negative result. Results from the Xpert Norovirus Assay should be interpreted in conjunction with other laboratory and clinical data available to the clinician. Current interpretive data was last revised on 2024. Stool 10/31/2024 5:27 PM CDT 10/31/2024 7:09 PM CDT Mar George MD LAB MICROBIOLOGY - GENERAL ORDERABLES Final Result [facility] One [facility] [place] [address] [facility] * eGFR (10/31/2024 4:26 PM CDT) eGFR 82 >=60 mL/min/1. 73 m2 Comment: Interpretive Data Reference Interval Normal >/= 90 mL/min/1.73m2 Mildly decreased* 60 - 89 mL/min/1.73m2 Mildly to moderately decreased 45 - 59 mL/min/1.73m2 Moderately to severely decreased 30 - 44 mL/min/1.73m2 Severely decreased 15 - 29 mL/min/1.73m2 Kidney Failure < 15 mL/min/1.73m2 *Relative to young adult level Estimated glomerular filtration rate is determined by the 2020 CKD-EPI equation recommended by the National Kidney Foundation (A Unifying Approach to GFR Estimation: Recommendations of the NKF-ASK Task Force on Reassessing the Inclusion of Race in Diagnosing Kidney Disease, JASN 202). The CKD-EPI equation should not be used for patients with unstable renal function and has not been validated in children and those over 70. Current interpretive data was last reviewed 2021. Blood 10/31/2024 4:26 PM CDT 10/31/2024 6:04 PM CDT Result [facility] Mar George MD LAB BLOOD OR DERABLES Final Result Performing Organization Address [facility] de Phone Number SH[facility] [place] [address] * (ABNORMAL) Vitamin A (10/31/2024 4:26 PM CDT) Pathologist [facility] Vitamin A 22.1(L) 32.5 - 78.0 mcg/dL [facility] Comment: ADDITIONAL INFORMATION This test was developed and its performance characteristics determined by [facility] in a manner consistent with CLIA requirements. This test has not been cleared or approved by the U.S. Food and Drug Administration. Test Performed by: [facility] [address] [employer] Operator: Kimberley Hurtado Ph.D.; CLIA# [id number] Blood 10/31/2024 4:26 PM CDT 10/31/2024 6:25 PM CDT Result [facility] Mar George MD LAB BLOOD OR DERABLES Final Result Performing Organization Address [facility] de Phone Number [facility] [address] [facility] * (ABNORMAL) Vitamin K (10/31/2024 4:26 PM CDT) Pathologist [facility] Phylloquinone (Vit K) 0.04(L) 0.10 - 2.20 ng/mL [facility] Comment: ADDITIONAL INFORMATION This test was developed and its performance characteristics determined by [facility] in a manner consistent with CLIA requirements. This test has not been cleared or approved by the U.S. Food and Drug Administration. Test Performed by: [facility] [address] [place] [address] [employer] Operator: Kimberley Hurtado Ph.D.; CLIA# [id number] Blood 10/31/2024 4:26 PM CDT 10/31/2024 6:27 PM CDT Mar George MD LAB BLOOD OR DERABLES Final Result Performing Organization Address City/[facility]/ZIP Co de Phone Number [facility] [place] [address] [facility] * (ABNORMAL) Vitamin D 25 hydroxy (10/31/2024 4:26 PM CDT) Vitamin D 25-OH 9(L) 30 - 80 ng/mL Blood 10/31/2024 4:26 PM CDT 10/31/2024 6:04 PM CDT Result [facility] Mar George MD LAB BLOOD OR DERABLES Final Result Performing Organization Address City/[facility] Co de Phone Number [facility] [place] [address] * (ABNORMAL) Phosphorus (10/31/2024 4:26 PM CDT) Phosphorus, pl 1.5(L) 2.3 - 4.5 mg/dL Blood 10/31/2024 4:26 PM CDT 10/31/2024 6:04 PM CDT Mar George MD LAB BLOOD OR DERABLES Final Result Performing Organization Address City/[facility]/ZIP Co de Phone Number [facility] [place] [address] * Magnesium (10/31/2024 4:26 PM CDT) [facility] Magnesium 1.8 1.4 - 2.5 mg/dL Blood 10/31/2024 4:26 PM CDT 10/31/2024 6:04 PM CDT Mar George MD LAB BLOOD OR DERABLES Final Result [facility] [place] [address] * Basic metabolic panel (10/31/2024 4:26 PM CDT) [facility] Sodium 142 135 - 145 mmol/L Potassium, pl 4.3 3.3 - 4.9 mmol/L [facility] Chloride 103 97 - 110 mmol/L [facility] CO2 30 22 - 32 mmol/L [facility] Anion gap 9 2 - 15 mmol/L [facility] BUN 9 6 - 25 mg/dL [facility] Creatinine 0.94 0.60 - 1.10 mg/dL [facility] Glucose 76 70 - 199 mg/dL [facility] Comment: Interpretive Data Fasting glucose >/= 126 mg/dl is diagnostic for diabetes. Fasting is defined as no caloric intake for at least 8 hours. Fasting glucose between 100 mg/dl to 125 mg/dl is diagnostic of prediabetes. In a patient with classic symptoms of hyperglycemia or hyperglycemic crisis, a random glucose >/= 200 mg/dl is diagnostic for diabetes. In the absence of unequivocal hyperglycemia, results should be confirmed by repeat testing. The classification and Diagnosis of Diabetes Diabetes Care 202; 46: S19-S40. Current interpretive data was last revised 2022. Calcium 9.7 8.5 - 10.3 mg/dL [facility] Blood 10/31/2024 4:26 PM CDT 10/31/2024 6:04 PM CDT us Mar George MD LAB BLOOD OR DERABLES Final Result [facility] [place] [address] * XR Abdomen AP 1 Vw With Contrast (10/31/2024 2:17 PM CDT) Anatomical Region Laterality Modality Body, Abdomen N/A Computed Radiogr aphy 10/31/2024 4:05 PM CDT Impressions 10/31/2024 8:15 PM CDT A gastrostomy tube projects over the left upper quadrant and opacifies the stomach when injected with contrast. The bowel gas pattern is within normal limits. Dictated by: Keli Santos MD PHD The radiology attending physician has personally reviewed this study, and had reviewed and/or edited this written report and agrees with it. Electronically signed by: Meron Haney M.D. Narrative 10/31/2024 8:15 PM CDT EXAMINATION: Abdomen, one view. HISTORY: Check tube placement. COMPARISON: None Procedure Note Meron Haney MD - 10/31/2024 EXAMINATION: Abdomen, one view. HISTORY: Check tube placement. COMPARISON: None IMPRESSION: A gastrostomy tube projects over the left upper quadrant and opacifies the stomach when injected with contrast. The bowel gas pattern is within normal limits. Dictated by: Keli Santos MD PHD The radiology attending physician has personally reviewed this study, and had reviewed and/or edited this written report and agrees with it. Electronically signed by: Meron Haney M.D. Mar George MD IMG XR PROCE DURES Final Result * Check Sample (10/31/2024 8:47 AM CDT) ABO Rh A Positive [facility] OTHER 10/31/2024 8:47 AM CDT 10/31/2024 10:36 AM CDT Mar George MD LAB BLOOD OR DERABLES Final Result [facility] One [facility] [place] [address] [facility] * Respiratory pathogen panel Nasopharyngeal (10/31/2024 8:47 AM CDT) [facility] Influenza A RNA Not Detected Not Detected Influenza B RNA Not Detected Not Detected [facility] RSV RNA Not Detected Not Detected [facility] COVID-19 RNA Not Detected Not Detected [facility] Coronavirus 229E RNA Not Detected Not Detected [facility] Coronavirus HKU1 RNA Not Detected Not Detected [facility] Coronavirus NL63 RNA Not Detected Not Detected [facility] Coronavirus OC43 RNA Not Detected Not Detected [facility] Adenovirus DNA Not Detected Not Detected [facility] Metapneumovirus RNA Not Detected Not Detected [facility] Rhinovirus/Enterov irus RNA Not Detected Not Detected [facility] Parainfluenza 1 RNA Not Detected Not Detected [facility] Parainfluenza 2 RNA Not Detected Not Detected [facility] Parainfluenza 3 RNA Not Detected Not Detected [facility] Parainfluenza 4 RNA Not Detected Not Detected [facility] B. pertussis DNA Not Detected Not Detected [facility] B. parapertussis DNA Not Detected Not Detected [facility] C. pneumoniae DNA Not Detected Not Detected [facility] M. pneumoniae DNA Not Detected Not Detected [facility] Nasopharyngeal 10/31/2024 8: 47 AM CDT 10/31/2024 9:05 AM CDT Narrative [facility] - 10/31/2024 10:37 AM CDT Is the Patient experiencing symptoms consistent with COVID?->Yes Surveillance testing for transplant patient?->No Interpretive Data The SADAR 3D FilmArray Respiratory Panel (RP2.1) assay is a multiplexed real-time PCR based nucleic acid test capable of simultaneous qualitative detection and identification of multiple respiratory viral and bacterial nucleic acids, including SARS Coronavirus 2 (the causative agent of COVID-19). The following bacteria, viruses and virus subtypes can be identified using the FilmArray RP2.1 assay: Bordetella pertussis, Bordetella parapertussis, Chlamydia pneumoniae, Mycoplasma pneumoniae, Adenovirus, SARS Coronavirus 2, seasonal coronaviruses (Coronavirus HKU1, Coronavirus NL63, Coronavirus 229E, and Coronavirus OC43), Influenza A, Influenza A subtype H1, Influenza A subtype H3, Influenza A subtype 2009 H1, Influenza B, Metapneumovirus, Parainfluenza 1, Parainfluenza 2, Parainfluenza 3, Parainfluenza 4, RSV, Rhinovirus/Enterovirus. Due to the genetic similarity between human Rhinovirus and Enterovirus, the FilmArray RP2.1 assay cannot reliably differentiate them. Coronavirus OC43 may cross-react with some isolates of Coronavirus HKU1. A dual positive result may be due to cross-reactivity or may indicate a co- infection. The detection and identification of specific viral and bacterial nucleic acids from individuals exhibiting signs and symptoms of a respiratory infection aids in the diagnosis of respiratory infection if used in conjunction with other clinical and epidemiological information. The results of this test should not be used as the sole basis for diagnosis, treatment, or other management decisions. Negative results in the setting of a respiratory illness may be due to infection with pathogens that are not detected by this test. Positive results do not rule out infection/co-infection with other organisms. The agent(s) detected by the FilmArray RP2.1 may not be the definite cause of disease. Additional testing (lab, imaging, etc.) may be necessary when evaluating a patient with possible respiratory tract infection. The FilmArray RP2.1 assay has FDA clearance for testing of [facility] swabs. The performance of additional specimen types has been assessed by the performing laboratory. The performance characteristics of this assay have been determined by [facility] Molecular Infectious Disease Laboratory. Current interpretive data was last revised on 22. us Mar George MD LAB MICROBIOLOGY - GENERAL ORDERABLES Final Result [facility] One [facility] [place] [address] * eGFR (10/31/2024 7:51 AM CDT) Pathologist [facility] eGFR >90 >=60 mL/min/1. 73 m2 Comment: Interpretive Data Reference Interval Normal >/= 90 mL/min/1.73m2 Mildly decreased* 60 - 89 mL/min/1.73m2 Mildly to moderately decreased 45 - 59 mL/min/1.73m2 Moderately to severely decreased 30 - 44 mL/min/1.73m2 Severely decreased 15 - 29 mL/min/1.73m2 Kidney Failure < 15 mL/min/1.73m2 *Relative to young adult level Estimated glomerular filtration rate is determined by the 2020 CKD-EPI equation recommended by the National Kidney Foundation (A Unifying Approach to GFR Estimation: Recommendations of the NKF-ASK Task Force on Reassessing the Inclusion of Race in Diagnosing Kidney Disease, JASN 2020). The CKD-EPI equation should not be used for patients with unstable renal function and has not been validated in children and those over 70. Current interpretive data was last reviewed 2021. Blood 10/31/2024 7:51 AM CDT 10/31/2024 8:14 AM CDT us Angela Ramirez MD LAB BLOOD ORDERABLES Fin al Result [facility] One [facility] [place] [address] * Differential, auto (10/31/2024 7:51 AM CDT) Pathologist [facility] Neutrophil abs 4.89 1.50 - 6.50 K/cumm Imm gran abs 0.06 0.00 - 0.10 K/cumm [facility] Lymphocyte abs 0.81 0.80 - 3.30 K/cumm [facility] Monocyte abs 0.35 0.20 - 0.80 K/cumm [facility] Eosinophil abs 0.15 0.00 - 0.50 K/cumm [facility] Basophil abs 0.03 0.00 - 0.10 K/cumm [facility] Neutrophil pct 77.6 % [facility] Comment: Interpretive Data Percent cell count reference ranges are not reported, since discordance with absolute values may lead to misinterpretation of CBC data. Current Interpretive Data was last revised on 2017. Imm gran pct 1.0 % [facility] Comment: Interpretive Data Percent cell count reference ranges are not reported, since discordance with absolute values may lead to misinterpretation of CBC data. Current Interpretive Data was last revised on 2017. Lymphocyte pct 12.9 % [facility] Comment: Interpretive Data Percent cell count reference ranges are not reported, since discordance with absolute values may lead to misinterpretation of CBC data. Current Interpretive Data was last revised on 2017. Monocyte pct 5.6 % [facility] Comment: Interpretive Data Percent cell count reference ranges are not reported, since discordance with absolute values may lead to misinterpretation of CBC data. Current Interpretive Data was last revised on 2017. Eosinophil pct 2.4 % [facility] Comment: Interpretive Data Percent cell count reference ranges are not reported, since discordance with absolute values may lead to misinterpretation of CBC data. Current Interpretive Data was last revised on 2017. Basophil pct 0.5 % [facility] Comment: Interpretive Data Percent cell count reference ranges are not reported, since discordance with absolute values may lead to misinterpretation of CBC data. Current Interpretive Data was last revised on 2017. Blood 10/31/2024 7:51 AM CDT 10/31/2024 8:12 AM CDT us Angela Ramirez MD LAB BLOOD ORDERABLES Fin al Result [facility] One [facility] Department [place] [address] * Critical Result Callback Chemistry (10/31/2024 7:51 AM CDT) Date Notified [id number] Time Notified [id number] SHONA BACK TestName Potassium Plas SHONA RAMIREZ Called/Read Back Suni Romy BACK Credentials RN SHONA RAMIREZ Called By TP SHONA BACK Blood 10/31/2024 7:51 AM CDT 10/31/2024 8:14 AM CDT us Angela Ramirez MD LAB BLOOD ORDERABLES Fin al Result [facility] [place] [address] * (ABNORMAL) Calcium, ionized (10/31/2024 7:51 AM CDT) [facility] Calcium, Ionized 4.37(L) 4.50 - 5.10 mg/dL Blood 10/31/2024 7:51 AM CDT 10/31/2024 8:12 AM CDT us Mar George MD LAB BLOOD OR DERABLES Final Result Performing Organization Address [facility] Co de Phone Number [facility] [place] [address] * (ABNORMAL) CBC with auto differential (10/31/2024 7:51 AM CDT) [facility] WBC 6.29 3.80 - 9.90 K/cumm Hgb 11.4(L) 11.9 - 15.5 g/dL [facility] Hct 31.9(L) 35.6 - 45.5 % [facility] Plt 105(L) 150 - 400 K/cumm [facility] MPV 11.2 9.1 - 12.3 fL [facility] RBC 3.29(L) 3.90 - 5.20 M/cumm [facility] MCV 97.0(H) 81.3 - 96.4 fL [facility] MCH 34.7(H) 27.1 - 33.3 pg [facility] MCHC 35.7 32.3 - 35.7 g/dL [facility] RDW CV 15.0(H) 11.1 - 14.9 % [facility] RDW SD 53.2(H) 35.7 - 48.1 fL [facility] NRBC abs 0.00 0.00 - 0.01 K/cumm [facility] Blood 10/31/2024 7:51 AM CDT 10/31/2024 8:12 AM CDT Angela Ramirez MD LAB BLOOD ORDERABLES Fin al Result Performing Organization Address [facility]/ZIP Co de Phone Number [facility] [place] [address] * Type and screen (10/31/2024 7:51 AM CDT) ABO Rh A Positive Zach, indirect Negative [facility] Blood 10/31/2024 7:51 AM CDT 10/31/2024 8:20 AM CDT Narrative [facility] - 10/31/2024 9:24 AM CDT Has the patient had Daratumumab or Isatuximab in the past 6 months?->Unknown Mar George MD LAB BLOOD BA NK TEST ORDERABLES Final Result Performing Organization Address [facility] [place] [address] * Infection Prevention MRSA Only (Staphylococcus aureus) Culture Nasal (10/31/2024 7:51 AM CDT) Report Final Report: Negative Nasal 10/31/2024 7:51 AM CDT 10/31/2024 8:13 AM CDT Narrative [facility] - 11/01/2024 9:38 AM CDT Testing performed by [facility] ([phone]). Mar George MD LAB MICROBIOLOGY - GENERAL ORDERABLES Final Result Performing Organization Address City/[facility] Co de Phone Number [facility] [place] [address] * hCG, blood, quantitative (10/31/2024 7:51 AM CDT) hCG, quant <5.0 0.0 - 5.0 IUnits/L Comment: Interpretive Data Male: < 5 IU/L Non- premenopausal Female: <5 IU/L The [place] hCG Beta Quant assay procedure was used. Results from different manufacturers or methods may not be comparable. Serial testing should be performed using the same method. Interpretive Data was last revised on 2023 Blood 10/31/2024 7:51 AM CDT 10/31/2024 8:14 AM CDT us Mar George MD LAB BLOOD OR DERABLES Final Result Performing Organization Address City/[facility] Co de Phone Number [facility] [place] [address] * Phosphorus (10/31/2024 7:51 AM CDT) [facility] Phosphorus, pl 2.4 2.3 - 4.5 mg/dL Blood 10/31/2024 7:5 1 AM CDT 10/31/2024 8:14 AM CDT Angela Ramirez MD LAB BLOOD ORDERABLES Fin al Result Performing Organization Address [facility] de Phone Number [facility] [place] [address] * Magnesium (10/31/2024 7:51 AM CDT) [facility] Magnesium 2.1 1.4 - 2.5 mg/dL Blood 10/31/2024 7:51 AM CDT 10/31/2024 8:14 AM CDT Angela Ramirez MD LAB BLOOD ORDERABLES Fin al Result Performing Organization Address City/[facility] Co de Phone Number [facility] Department [place] [address] * (ABNORMAL) Hepatic function panel (10/31/2024 7:51 AM CDT) Pathologist [facility] Bilirubin, total 2.0(H) 0.1 - 1.2 mg/dL Bilirubin, direct 0.9(H) 0.1 - 0.3 mg/dL [facility] Comment:Reviewed Protein, pl 5.5(L) 6.5 - 8.5 g/dL [facility] Albumin 3.0(L) 3.5 - 5.0 g/dL [facility] Alk phos 127 40 - 130 Units/L [facility] ALT 69(H) 7 - 45 Units/L [facility] Comment:Reviewed AST 129(H) 10 - 45 Units/L [facility] Comment:Reviewed Blood 10/31/2024 7:51 AM CDT 10/31/2024 8:14 AM CDT Angela Ramirez MD LAB BLOOD ORDERABLES Fin al Result [facility] Department [place] [address] * (ABNORMAL) Basic metabolic panel (10/31/2024 7:51 AM CDT) [facility] Sodium 144 135 - 145 mmol/L Potassium, pl 2.5(C) 3.3 - 4.9 mmol/L [facility] Comment:Repeated and Verifie d Chloride 100 97 - 110 mmol/L [facility] CO2 35(H) 22 - 32 mmol/L [facility] Anion gap 9 2 - 15 mmol/L [facility] BUN 8 6 - 25 mg/dL [facility] Creatinine 0.80 0.60 - 1.10 mg/dL [facility] Glucose 116 70 - 199 mg/dL [facility] Comment: Interpretive Data Fasting glucose >/= 126 mg/dl is diagnostic for diabetes. Fasting is defined as no caloric intake for at least 8 hours. Fasting glucose between 100 mg/dl to 125 mg/dl is diagnostic of prediabetes. In a patient with classic symptoms of hyperglycemia or hyperglycemic crisis, a random glucose >/= 200 mg/dl is diagnostic for diabetes. In the absence of unequivocal hyperglycemia, results should be confirmed by repeat testing. The classification and Diagnosis of Diabetes Diabetes Care 2021; 46: S19-S40. Current interpretive data was last revised 2022. Calcium 8.4(L) 8.5 - 10.3 mg/dL [facility] Blood 10/31/2024 7:51 AM CDT 10/31/2024 8:14 AM CDT us Angela Ramirez MD LAB BLOOD ORDERABLES Fin al Result Performing Organization Address [facility] Co de Phone Number [facility] [place] [address] * (ABNORMAL) Troponin I high-sensitivity 2-hour (10/31/2024 5:13 AM CDT) Trop I hs 47(H) <=17 ng/L Comment: Interpretive Data For further hscTnI resources including the diagnostic algorithm and an aid in interpretation, copy and paste this link: https://bjhlab.testcatalog.org/show/hsTrop-1 Current Interpretive Data last revised 2020. Trop I hs delta -9 ng/L [facility] Trop I hs interp Equivocal [facility] Blood 10/31/2024 5:13 AM CDT 10/31/2024 5:24 AM CDT us Bro Blackwell MD LAB BLOOD ORDERABLES Final R esult Performing Organization Address [facility]/ZIP Co de Phone Number [facility] [place] [address] * (ABNORMAL) Potassium, whole blood (10/31/2024 5:13 AM CDT) Potassium, bld 2.6(L) 3.3 - 4.9 mmol/L Blood 10/31/2024 5:13 AM CDT 10/31/2024 5:23 AM CDT us Bro Blackwell MD LAB BLOOD ORDERABLES Final R esult Performing Organization Address [facility] Co de Phone Number [facility] [place] [address] * (ABNORMAL) ECG 12-LEAD (10/31/2024 4:10 AM CDT) Narrative [facility] - 10/31/2024 4:10 AM CDT Angela Ramirez MD 10/31/2024 4:11 AM ECG 12 lead Date/Time: 10/31/2024 4:10 AM Performed by: Angela Ramirez MD Authorized by: Angela Ramirez MD Rate: ECG rate: 100 ECG rate assessment: tachycardic Rhythm: Rhythm: sinus tachycardia Ectopy: Ectopy: none QRS: QRS axis: Normal QRS intervals: Normal Conduction: Conduction: abnormal Abnormal conduction: 1st degree ST segments: ST segments: Normal T waves: T waves: normal Other findings: Other findings: prolonged qTc interval Previous ECG: Previous ECG: Unavailable Interpretation: Interpretation: abnormal Recommended Follow-up: Recommended follow up: further workup in the ED us Angela Ramirez MD ECG ORDERABLES Final Re sult Performing Organization Address [facility] Co de Phone Number [facility] * (ABNORMAL) Troponin I high-sensitivity series (baseline, 2hr, 4hr, 6hr) (10/31/2024 3:14 AM CDT) Trop I hs 56(H) <=17 ng/L Comment: Interpretive Data For further hscTnI resources including the diagnostic algorithm and an aid in interpretation, copy and paste this link: https://bjhlab.testcatalog.org/show/hsTrop-1 Current Interpretive Data last revised 2020. Blood 10/31/2024 3:14 AM CDT 10/31/2024 3:34 AM CDT us Bro Blackwell MD LAB BLOOD ORDERABLES Final R esult Performing Organization Address City/[facility] Co de Phone Number [facility] [place] [address] * eGFR (10/31/2024 3:14 AM CDT) Pathologist [facility] eGFR >90 >=60 mL/min/1. 73 m2 Comment: Interpretive Data Reference Interval Normal >/= 90 mL/min/1.73m2 Mildly decreased* 60 - 89 mL/min/1.73m2 Mildly to moderately decreased 45 - 59 mL/min/1.73m2 Moderately to severely decreased 30 - 44 mL/min/1.73m2 Severely decreased 15 - 29 mL/min/1.73m2 Kidney Failure < 15 mL/min/1.73m2 *Relative to young adult level Estimated glomerular filtration rate is determined by the 2020 CKD-EPI equation recommended by the National Kidney Foundation (A Unifying Approach to GFR Estimation: Recommendations of the NKF-ASK Task Force on Reassessing the Inclusion of Race in Diagnosing Kidney Disease, JASN 2020). The CKD-EPI equation should not be used for patients with unstable renal function and has not been validated in children and those over 70. Current interpretive data was last reviewed 2021. Blood 10/31/2024 3:1 4 AM CDT 10/31/2024 3:34 AM CDT Bro Blackwell MD LAB BLOOD ORDERABLES Final R esult Performing Organization Address [facility] Co de Phone Number [facility] [place] [address] * (ABNORMAL) Differential, auto (10/31/2024 3:14 AM CDT) Pathologist [facility] Neutrophil abs 7.73(H) 1.50 - 6.50 K/cumm Imm gran abs 0.12(H) 0.00 - 0.10 K/cumm [facility] Lymphocyte abs 0.45(L) 0.80 - 3.30 K/cumm [facility] Monocyte abs 0.46 0.20 - 0.80 K/cumm [facility] Eosinophil abs 0.00 0.00 - 0.50 K/cumm [facility] Basophil abs 0.01 0.00 - 0.10 K/cumm [facility] Neutrophil pct 88.2 % [facility] Comment: Interpretive Data Percent cell count reference ranges are not reported, since discordance with absolute values may lead to misinterpretation of CBC data. Current Interpretive Data was last revised on 2017. Imm gran pct 1.4 % [facility] Comment: Interpretive Data Percent cell count reference ranges are not reported, since discordance with absolute values may lead to misinterpretation of CBC data. Current Interpretive Data was last revised on 2017. Lymphocyte pct 5.1 % [facility] Comment: Interpretive Data Percent cell count reference ranges are not reported, since discordance with absolute values may lead to misinterpretation of CBC data. Current Interpretive Data was last revised on 2017. Monocyte pct 5.2 % [facility] Comment: Interpretive Data Percent cell count reference ranges are not reported, since discordance with absolute values may lead to misinterpretation of CBC data. Current Interpretive Data was last revised on 2017. Eosinophil pct 0.0 % [facility] Comment: Interpretive Data Percent cell count reference ranges are not reported, since discordance with absolute values may lead to misinterpretation of CBC data. Current Interpretive Data was last revised on 2017. Basophil pct 0.1 % [facility] Comment: Interpretive Data Percent cell count reference ranges are not reported, since discordance with absolute values may lead to misinterpretation of CBC data. Current Interpretive Data was last revised on 2017. Blood 10/31/2024 3:14 AM CDT 10/31/2024 3:34 AM CDT us Bro Blackwell MD LAB BLOOD ORDERABLES Final R esult SHONA BACK [facility] Department [place] [address] * Thyroid Function [facility] (10/31/2024 3:14 AM CDT) TSH 0.55 0.30 - 4.20 mcIUnit/mL Blood 10/31/2024 3:14 AM CDT 10/31/2024 3:34 AM CDT us Bro Blackwell MD LAB BLOOD ORDERABLES Final R esult Performing Organization Address [facility] Co de Phone Number [facility] [place] [address] * (ABNORMAL) Calcium, ionized (10/31/2024 3:14 AM CDT) [facility] Calcium, Ionized 4.09(L) 4.50 - 5.10 mg/dL Blood 10/31/2024 3:14 AM CDT 10/31/2024 3:29 AM CDT us Bro Blackwell MD LAB BLOOD ORDERABLES Final R esult Performing Organization Address [facility] de Phone Number [facility] Department [place] [address] * (ABNORMAL) CBC with auto differential (10/31/2024 3:14 AM CDT) [facility] WBC 8.77 3.80 - 9.90 K/cumm Hgb 12.2 11.9 - 15.5 g/dL [facility] Hct 33.1(L) 35.6 - 45.5 % [facility] Plt 111(L) 150 - 400 K/cumm [facility] MPV 11.1 9.1 - 12.3 fL [facility] RBC 3.51(L) 3.90 - 5.20 M/cumm [facility] MCV 94.3 81.3 - 96.4 fL [facility] MCH 34.8(H) 27.1 - 33.3 pg [facility] MCHC 36.9(H) 32.3 - 35.7 g/dL [facility] RDW CV 14.7 11.1 - 14.9 % [facility] RDW SD 50.9(H) 35.7 - 48.1 fL [facility] NRBC abs 0.00 0.00 - 0.01 K/cumm [facility] Blood 10/31/2024 3:14 AM CDT 10/31/2024 3:34 AM CDT us Bro Blackwell MD LAB BLOOD ORDERABLES Final R esult Performing Organization Address [facility] Co de Phone Number [facility] [place] [address] * Phosphorus (10/31/2024 3:14 AM CDT) Phosphorus, pl 2.7 2.3 - 4.5 mg/dL Comment:Hemolyzed; result ma y be falsely elevated Blood 10/31/2024 3:14 AM CDT 10/31/2024 3:34 AM CDT us Bro Blackwell MD LAB BLOOD ORDERABLES Final R esult Performing Organization Address City/[facility] Co de Phone Number [facility] [place] [address] * Magnesium (10/31/2024 3:14 AM CDT) Magnesium 2.4 1.4 - 2.5 mg/dL Blood 10/31/2024 3:14 AM CDT 10/31/2024 3:34 AM CDT us Bro Blackwell MD LAB BLOOD ORDERABLES Final R esult Performing Organization Address [facility] Co de Phone Number [facility] [place] [address] * (ABNORMAL) Hepatic function panel (10/31/2024 3:14 AM CDT) Bilirubin, total 2.2(H) 0.1 - 1.2 mg/dL Bilirubin, direct See Comment 0.1 - 0.3 mg/dL [facility] Comment:Credited; Hemolyzed Specimen Protein, pl 5.7(L) 6.5 - 8.5 g/dL [facility] Albumin 2.9(L) 3.5 - 5.0 g/dL [facility] Alk phos 123 40 - 130 Units/L [facility] Comment:Hemolyzed; result ma y be falsely decreased ALT See Comment 7 - 45 Units/L [facility] Comment:Credited; Hemolyzed Specimen AST See Comment 10 - 45 Units/L [facility] Comment:Credited; Hemolyzed Specimen Blood 10/31/2024 3:14 AM CDT 10/31/2024 3:34 AM CDT us Bro Blackwell MD LAB BLOOD ORDERABLES Final R esult [facility] Department [place] [address] * Basic metabolic panel (10/31/2024 3:14 AM CDT) Sodium 142 135 - 145 mmol/L Potassium, pl See Comment 3.3 - 4.9 mmol/L [facility] Comment:Credited; Hemolyzed Specimen Chloride 98 97 - 110 mmol/L [facility] CO2 31 22 - 32 mmol/L [facility] Anion gap 13 2 - 15 mmol/L [facility] BUN 7 6 - 25 mg/dL [facility] Creatinine 0.71 0.60 - 1.10 mg/dL [facility] Glucose 121 70 - 199 mg/dL [facility] Comment: Interpretive Data Fasting glucose >/= 126 mg/dl is diagnostic for diabetes. Fasting is defined as no caloric intake for at least 8 hours. Fasting glucose between 100 mg/dl to 125 mg/dl is diagnostic of prediabetes. In a patient with classic symptoms of hyperglycemia or hyperglycemic crisis, a random glucose >/= 200 mg/dl is diagnostic for diabetes. In the absence of unequivocal hyperglycemia, results should be confirmed by repeat testing. The classification and Diagnosis of Diabetes Diabetes Care 202; 46: S19-S40. Current interpretive data was last revised 2022. Calcium 8.5 8.5 - 10.3 mg/dL [facility] Blood 10/31/2024 3:14 AM CDT 10/31/2024 3:34 AM CDT us Bro Blackwell MD LAB BLOOD ORDERABLES Final R esult [facility] [place] [address] * XR Chest 1 Vw Portable (10/31/2024 3:06 AM CDT) Anatomical Region Laterality Modality Body, Chest N/A Computed Radiogr aphy 10/31/2024 3:20 AM CDT Impressions 10/31/2024 8:44 AM CDT Comparison is made to chest radiograph from 04/22/2013. Airspace opacity in the left lower lung which may represent aspiration or pneumonia in the appropriate clinical setting, recommend follow-up in 4-6 weeks to document resolution. Right lung is clear. No pleural effusion or pneumothorax. Cardiomediastinal silhouette is normal. Dictated by: Cornelio Floyd MD The radiology attending physician has personally reviewed this study, and had reviewed and/or edited this written report and agrees with it. Electronically signed by: Tito Garcia M.D. Narrative 10/31/2024 8:44 AM CDT EXAMINATION: 1 view chest radiograph Procedure Note Tito Garcia MD - 10/31/2024 EXAMINATION: 1 view chest radiograph IMPRESSION: Comparison is made to chest radiograph from 04/22/2013. Airspace opacity in the left lower lung which may represent aspiration or pneumonia in the appropriate clinical setting, recommend follow-up in 4-6 weeks to document resolution. Right lung is clear. No pleural effusion or pneumothorax. Cardiomediastinal silhouette is normal. Dictated by: Cornelio Floyd MD The radiology attending physician has personally reviewed this study, and had reviewed and/or edited this written report and agrees with it. Electronically signed by: Tito Garcia M.D. 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 PAP: [facility] HISTORICAL RESULTS Comment:2011 PREV. BX: [facility] HISTORICAL RESULTS Comment:UNKNOWN SOURCE: [facility] HISTORICAL RESULTS Comment:Cervix, Endocervix STATEMENT OF ADEQUACY: [facility] HISTORICAL RESULTS Comment:Satisfactory for savana luation. Endocervical/transformation zone component present. INTERPRETATION/RES ULT: [facility] HISTORICAL RESULTS Comment:Negative for intraep ithelial lesion or malignancy. COMMENT: [facility] HISTORICAL RESULTS Comment:This Pap test has be en evaluated with computer assisted technology. 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 [address] C. trachomatis RNA NOT DETECTED NOT DETECTED [facility] HISTORICAL RESULTS N. gonorrhoeae RNA NOT DETECTED NOT DETECTED [facility] HISTORICAL RESULTS COMMENT [facility] HISTORICAL RESULTS Comment: This test was performed using the APTIMA COMBO2 Assay ([employer] The analytical performance characteristics of this assay, when used to test SurePath specimens have been determined by [employer]. 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
--- OUTSIDE RECORDS SUMMARY | 2025-01-08 07:05 | XMS_ITS | Referral Summary ---
Author Organization [facility] Address [address] [place] [address] Care Team Providers Care Trustee Of Estate Name Role Phone Mo Mitchell MD Primary Care Provider [phone] Encounters Date Type Department Care Team Description 01/01/2025 2:10 PM CDT - 01/01/2025 11:59 PM CDT Hospital Encounter [facility] [address] [place] [address] Discharge Disposition: Discharge to home or self care 01/01/2025 Telephone [facility] Infectious Diseases [address] [place] [address] [place] [phone] Sidney Gould Jr., RN 01/01/2025 2:00 PM CDT Home Care Visit [address] [place] [address] Nayely Pedroza, BRITTANIE SN HOME VISIT 12/31/2024 Telephone [facility] Cardiology [address] [facility] 8th [place] [address] [place] [address] Nani Melchor, BRAXTON 12/31/2024 Orders Only [facility] Infectious Diseases [address] [place] [address] [address] [place] [address] Dorothea Stephen, BRAXTON 12/28/2024 11:00 AM CDT Home Care Visit [address] [place] [address] Nayely Pedroza, BRITTANIE SN HOME VISIT 12/27/2024 Telephone [facility] Infectious Diseases [address] [place] [address] [address] [place] [address] Dorothea Stephen, BRAXTON 12/27/2024 9:13 AM CDT - 12/27/2024 11:59 PM CDT Hospital Encounter [facility] [address] [place] [address] Discharge Disposition: Discharge to home or self care 12/27/2024 2:00 PM CDT Home Care Visit [address] [place] [address] Thang Solorzano, PT PT DISCIPLINE DISCHARGE 12/27/2024 8:40 AM CDT Office Visit [facility] Infectious Diseases [address] [place] [address] [address] [place] [phone] Dorothea Stephen, BRAXTON MSSA bacteremia (Primary Dx); Encounter for screening examination for sexually transmitted disease 12/21/2024 Orders Only [facility] Cardiology [address] [facility] 8th [place] [address] [place] [address] Nani Melchor, BRAXTON 12/21/2024 11:30 AM CDT Home Care Visit [address] [place] [address] Nayely Pedroza, BRITTANIE SN HOME VISIT 12/21/2024 2:00 PM CDT Home Care Visit [address] [place] [address] Thang Solorzano, PT PT HOME VISIT 12/19/2024 Home Care Visit [address] [place] [address] Thang Solorzano, PT CASE COMMUNICATION 12/19/2024 11:00 AM CDT Home Care Visit [address] [place] [address] Thang Solorzano, PT PT HOME VISIT 12/13/2024 10:45 AM CDT Home Care Visit [address] [place] [address] Khushboo Jarvis, PT PT HOME VISIT 12/11/2024 1:00 PM CDT Home Care Visit [address] [place] [address] Nayely Pedroza, BRITTANIE SN HOME VISIT 12/11/2024 2:30 PM CDT Home Care Visit [address] [place] [address] Khushboo Jarvis, PT PT HOME VISIT 12/07/2024 SHOP/CHAP Subsequent Outreach [facility] OP CASE MANAGEMENT [address] [place] [address] Neeta Ott, RN 12/06/2024 11:00 AM CDT Home Care Visit [address] [place] [address] Isabelle Campbell, OT OT INITIAL EVALUATION 12/06/2024 12:30 PM CDT Home Care Visit [address] [place] [address] Nayely Pedroza, BRITTANIE SN HOME VISIT 12/05/2024 SHOP/CHAP Subsequent Outreach [facility] OP CASE MANAGEMENT [address] [place] [address] Neeta Ott, BRITTANIE 12/04/2024 SHOP/CHAP Subsequent Outreach [facility] OP CASE MANAGEMENT [address] [place] [address] Neeta Ott, RN 12/04/2024 Home Care Visit [address] [place] [address] Nayely Pedroza, RN CARE CONFERENCE 12/03/2024 Home Care Visit [address] [place] [address] Billy Zarco, BRITTANIE TELEPHONE ENCOUNTER 12/03/2024 Home Care Visit [address] [place] [address] Thang Solorzano, PT TELEPHONE ENCOUNTER 12/03/2024 10:00 AM CDT Home Care Visit [address] [place] [address] Thang Solorzano, PT PT INITIAL EVALUATION 12/03/2024 1:10 PM CDT Telemedicine [facility] [address] [place] [address] [place] [address] Yamilex Mathew, BRAXTON Torsades de pointes (HCC) (Primary Dx); MSSA bacteremia 12/01/2024 Plan of Care Documentation [address] [address] [address] [place] [address] 12/01/2024 12:00 PM CDT Home Care Visit [address] [address] [address] [place] [address] Billy Zarco, BRITTANIE SN OASIS START OF CARE 11/30/2024 Orders Only [facility] Cardiothoracic Surgery [address] [facility] 8th Floor [address] [place] [phone] Lee Elena MD Mass of left cardiac ventricle (Primary Dx) 11/29/2024 Telephone [facility] Home Care Services [address] [place] [address] Dora Sandra 11/29/2024 Orders Only Internal Medicine Alex Bailey MD 11/29/2024 SHOP/CHAP Initial Outreach [facility] OP CASE MANAGEMENT [address] [place] [phone] Neeta Ott RN 11/29/2024 SHOP/CHAP Initial Eligibility Review [facility] OP CASE MANAGEMENT [address] [place] [phone] Neeta Ott RN 11/28/2024 Home Care Visit [facility] Home Health - [address] [address] [address] [place] [address] Hortensia Valentino, BRITTANIE SN TRIAGE ENCOUNTER 11/28/2024 Orders Only [facility] Cardiothoracic Surgery [address] [facility] 8th Floor [address] [phone] Bo Fried MD MSSA bacteremia (Primary Dx); Thrombocytopenia 10/31/2024 2:44 AM CDT - 11/28/2024 3:29 PM CDT Hospital Encounter [address] [phone] Angela Ramirez MD Vazquez Guillamet, MD Arnulfo Beyer, MD Kassy Rae, MD Leo Killian, Alex Bhatia MD Torsades de pointes (HCC) (Primary Dx); Cardiac arrest (HCC); Anorexia; Electrolyte abnormality; Acute pain [R52]; Painful respiration [R07.1]; Costochondritis [M94.0]; Idiopathic peripheral neuropathy [G60.9]; MSSA bacteremia Discharge Disposition: Discharge to home or self care 11/23/2024 Telephone [facility] Home Care Services [address] [place] [address] [address] [place] [address] Dora Sandra 11/14/2024 1:40 PM CDT Anesthesia Event [facility] [address] [place] [phone] Rudy Licona MD 11/05/2024 Results Follow-Up Critical Care Medicine Michaela Giordano MD Basic metabolic panel, Basic metabolic panel, eGFR, Additional followed-up results: 32 from Last 3 Months Allergies Active Allergy Reactions Criticality Noted Date [...] diarrhea 100 mL 11/29/19 25 Active multivit [id number] A-calcium (THERA-M) 9 mg iron-400 mcg tabletIndicatio [...] by mouth daily with dinner 30 tablet 12/22/19 25 Active aspirin 81 mg capsuleIndicati ons:myocardial infarction prevention Take 1 tablet by mouth daily. take aspirin daily until blood thinner is received from multimedia technician office Indications: treatment to prevent a heart [...] materials from doctor or pharmacy Sometimes 12/01/[address] [facility] Utilities Answer Date Recorded In the past 12 months has th e electric, gas, oil, or water [employer] threatened to shut off services in your [...] often do you attend chur ch or advent services? Never 11/29/2024 Do you belong to any clubs o r organizations such as catholic groups, unions, fraternal or athletic groups, or [...] No 11/29/2024 Housing Stability Vital Sign Answer Garrtet e Recorded In the last 12 months, was t here a time when you were not able to pay the mortgage or rent on time? No 11/29/2024 In the past 12 months, how m any times have you moved where you were living? 0 11/29/2024 At any time in the past 12 m [facility], were you homeless or living in a fci (including now)? No 11/29/2024 Personal Safety Answer Date Recorded Have you ever been in or are you currently in a harmful physical or emotional relationship or is someone making you feel afraid or unsafe? 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 Gender Identity Not on file Sexual Orientation [...] 12/27/2024 8:26 AM CDT Plan of Treatment Not on file Procedures [...] WO CONTRAST Routine 11/14/2024 2:19 PM CDT GA AN PROCEDURE PLACEHOLDER Routine 11/14/2024 1:56 PM CDT GA AN ELECTIVE ENDOTRACHEAL AIRWAY Routine 11/14/2024 1:56 [...] E6/E7, CHLAMYDIA/N.GONORRHOEA E Routine 09/14/2016 12:56 PM IMPLEMENTATION ANALYST from Last 3 Months or Most Recently [...] 01/01/2025 6:14 PM CDT us Dorothea Stephen NP LAB BLOOD ORDERABLES Krystyna meyers Result [facility] Department [place] [address] * (ABNORMAL) Basic metabolic panel (01/01/2025 2:10 PM CDT) [facility] Sodium 139 135 - 145 mmol/L Potassium, pl 2.9(L) 3.3 - 4.9 mmol/L [facility] Chloride 98 97 - 110 mmol/L [facility] CO2 26 22 - 32 mmol/L [facility] Anion gap 15 2 - 15 mmol/L [facility] BUN 11 6 - 25 mg/dL [facility] Creatinine 0.63 0.60 - 1.10 mg/dL [facility] Glucose 91 70 - 199 mg/dL [facility] Comment: Interpretive Data Fasting glucose >/= 126 [...] 2022. Calcium 9.2 8.5 - 10.3 mg/dL [facility] Blood 01/01/2025 2:10 PM CDT 01/01/2025 6:04 PM CDT Dorothea Stephen PATROL INSPECTOR LAB BLOOD ORDERABLES Krystyna l Result Performing Organization Address [facility] Co de Phone Number [facility] [place] [address] * Glucose, random (Outreach) (12/27/2024 9:13 AM CDT) Glucose 118 70 - 199 mg/dL Comment: [...] AM CDT 12/27/2024 10:38 AM CDT Dorothea Stephen NP LAB BLOOD ORDERABLES Krystyna l Result Performing Organization Address [facility] Co de Phone Number [facility] Department [place] [address] * eGFR (12/27/2024 9:13 AM CDT) eGFR [...] 9:13 AM CDT 12/27/2024 10:50 AM CDT us Dorothea Stephen NP LAB BLOOD ORDERABLES Krystyna meyers Result [facility] Department [place] [address] * Differential, auto (12/27/2024 9:13 AM CDT) Neutrophil abs 3.36 1.50 - 6.50 K/cumm Imm gran abs 0.01 0.00 - 0.10 K/cumm [facility] Lymphocyte abs 1.97 0.80 - 3.30 K/cumm [facility] Monocyte abs 0.37 0.20 - 0.80 K/cumm [facility] Eosinophil abs 0.18 0.00 - 0.50 K/cumm [facility] Basophil abs 0.04 0.00 - 0.10 K/cumm [facility] Neutrophil pct 56.7 % [facility] Comment: Interpretive Data Percent cell count reference ranges are not reported, since discordance with absolute values may lead to misinterpretation of CBC data. Current Interpretive Data was last revised on 2017. Imm gran pct 0.2 % [facility] Comment: Interpretive Data Percent cell count reference ranges are not reported, since discordance with absolute values may lead to misinterpretation of CBC data. Current Interpretive Data was last revised on 2017. Lymphocyte pct 33.2 % [facility] Comment: Interpretive Data Percent cell count reference ranges are not reported, since discordance with absolute values may lead to misinterpretation of CBC data. Current Interpretive Data was last revised on 2017. Monocyte pct 6.2 % [facility] Comment: Interpretive Data Percent cell count reference ranges are not reported, since discordance with absolute values may lead to misinterpretation of CBC data. Current Interpretive Data was last revised on 2017. Eosinophil pct 3.0 % [facility] Comment: Interpretive Data Percent cell count reference ranges are not reported, since discordance with absolute values may lead to misinterpretation of CBC data. Current Interpretive Data was last revised on 2017. Basophil pct 0.7 % [facility] Comment: Interpretive Data Percent cell count reference ranges are not reported, since discordance with absolute values may lead to misinterpretation of CBC data. Current Interpretive Data was last revised on 2017. Blood 12/27/2024 9:13 AM CDT 12/27/2024 10:37 AM CDT us Dorothea Stephen PATROL INSPECTOR LAB BLOOD ORDERABLES Krystyna meyers Result [facility] Department [place] [address] * (ABNORMAL) Comprehensive metabolic panel, without glucose (Outreach) (12/27/2024 9:13 AM CDT) Sodium 136 135 - 145 mmol/L Potassium, pl 2.9(L) 3.3 - 4.9 mmol/L [facility] Chloride 98 97 - 110 mmol/L [facility] CO2 24 22 - 32 mmol/L [facility] Anion gap 14 2 - 15 mmol/L [facility] BUN 9 6 - 25 mg/dL [facility] Creatinine 0.64 0.60 - 1.10 mg/dL [facility] Calcium 9.7 8.5 - 10.3 mg/dL [facility] Protein, pl 8.2 6.5 - 8.5 g/dL [facility] Albumin 4.2 3.5 - 5.0 g/dL [facility] Bilirubin, total 0.7 0.1 - 1.2 mg/dL [facility] Alk phos 175(H) 40 - 130 Units/L [facility] AST 51(H) 10 - 45 Units/L [facility] ALT 25 7 - 45 Units/L [facility] Blood 12/27/2024 9:13 AM CDT 12/27/2024 10:38 AM CDT us Dorothea Stephen PATROL INSPECTOR LAB BLOOD ORDERABLES Krystyna l Result Performing Organization Address City/[facility]/ZIP Co de Phone Number [facility] Department [place] [address] * (ABNORMAL) CBC with auto differential (12/27/2024 9:13 AM CDT) [facility] WBC 5.93 3.80 - 9.90 K/cumm Hgb 13.9 11.9 - 15.5 g/dL [facility] Hct 40.1 35.6 - 45.5 % [facility] Plt 138(L) 150 - 400 K/cumm [facility] MPV 11.4 9.1 - 12.3 fL [facility] RBC 4.23 3.90 - 5.20 M/cumm [facility] MCV 94.8 81.3 - 96.4 fL [facility] MCH 32.9 27.1 - 33.3 pg [facility] MCHC 34.7 32.3 - 35.7 g/dL [facility] RDW CV 13.0 11.1 - 14.9 % [facility] RDW SD 45.3 35.7 - 48.1 fL [facility] NRBC abs 0.00 0.00 - 0.01 K/cumm [facility] Blood 12/27/2024 9:13 AM CDT 12/27/2024 10:37 AM CDT us Dorothea Stephen PATROL INSPECTOR LAB BLOOD ORDERABLES Krystyna l Result SHONA BACK [facility] Department [place] [address] * Magnesium (12/27/2024 9:13 AM CDT) Magnesium 1.9 1.4 - 2.5 mg/dL Blood 12/27/2024 9:13 AM CDT 12/27/2024 10:50 AM CDT Mo Villatoro MD LAB BLOOD ORDERABLES Final Resul t [facility] Department [place] [address] * Blood culture Blood (12/27/2024 9:05 AM CDT) Report Final Report: No growth Blood 12/27/2024 9:05 AM CDT 12/27/2024 11:47 AM CDT Narrative [facility] - 12/31/2024 12:00 PM CDT Specimen [...] performance characteristics have been verified by the [facility]. For questions about this culture, contact the Microbiology Laboratory at [phone]. Interpretive data was last revised on 24. Droothea Setphen NP LAB MICROBIOLOGY - GENERA L ORDERABLES Final Result Performing Organization Address [facility]/ZIP Co de Phone Number SHONA RAMIREZ [facility] Department [place] [address] * Blood culture Blood (12/27/2024 9:05 AM [...] performance characteristics have been verified by the [facility]. For questions about this culture, contact the Microbiology Laboratory at [phone]. Interpretive data was last revised on 24. Dorothea Stephen NP LAB MICROBIOLOGY - GENERA L ORDERABLES Final Result SHONA [facility] Department [place] [address] * (ABNORMAL) Cystatin C (11/28/2024 10:45 AM CDT) Cystatin C 1.23(H) 0.60 - 1.20 mg/L Comment: Interpretive Data Cystatin C concentrations vary widely in the first month of life, particularly in pre-term infants. Concentrations gradually diminish to adult levels by 1 year of life. Concentrations tend to rise with diminishing renal function in individuals greater than 60 years of age. Current Interpretive Data was last revised on 2020. Testing performed by: [facility], [place]., [address] Blood 11/28/2024 10:4 5 AM CDT 11/28/2024 12:03 PM CDT us Alex Bailey MD LAB BLOOD ORDERABLES Final Resu lt Performing Organization Address [facility] de Phone Number SHONA [facility] Department [place] [address] * eGFR (11/27/2024 9:44 PM CDT) eGFR >90 >=60 mL/min/1. [...] MD LAB BLOOD ORDERABLES Krystyna mira Result [facility] Department [place] [address] * (ABNORMAL) Differential, auto (11/27/2024 9:44 PM CDT) Pathologist [facility] Neutrophil abs 2.70 1.50 - 6.50 K/cumm Imm gran abs 0.03 0.00 - 0.10 K/cumm [facility] Lymphocyte abs 2.90 0.80 - 3.30 K/cumm [facility] Monocyte abs 0.50 0.20 - 0.80 K/cumm [facility] Eosinophil abs 0.13 0.00 - 0.50 K/cumm [facility] Basophil abs 0.13(H) 0.00 - 0.10 K/cumm [facility] Neutrophil pct 42.3 % [facility] Comment: Interpretive Data Percent cell count reference ranges are not reported, since discordance with absolute values may lead to misinterpretation of CBC data. Current Interpretive Data was last revised on 2017. Imm gran pct 0.5 % [facility] Comment: Interpretive Data Percent cell count reference ranges are not reported, since discordance with absolute values may lead to misinterpretation of CBC data. Current Interpretive Data was last revised on 2017. Lymphocyte pct 45.4 % [facility] Comment: Interpretive Data Percent cell count reference ranges are not reported, since discordance with absolute values may lead to misinterpretation of CBC data. Current Interpretive Data was last revised on 2017. Monocyte pct 7.8 % [facility] Comment: Interpretive Data Percent cell count reference ranges are not reported, since discordance with absolute values may lead to misinterpretation of CBC data. Current Interpretive Data was last revised on 2017. Eosinophil pct 2.0 % [facility] Comment: Interpretive Data Percent cell count reference ranges are not reported, since discordance with absolute values may lead to misinterpretation of CBC data. Current Interpretive Data was last revised on 2017. Basophil pct 2.0 % [facility] Comment: Interpretive Data Percent cell count reference ranges are not reported, since discordance with absolute values may lead to misinterpretation of CBC data. Current Interpretive Data was last revised on 2017. Blood 11/27/2024 9:44 PM CDT 11/27/2024 10:41 PM CDT us Lee Elena MD LAB BLOOD ORDERABLES Krystyna meyers Result [facility] Department [place] [address] * (ABNORMAL) CBC with auto differential (11/27/2024 9:44 PM CDT) WBC 6.39 3.80 - 9.90 K/cumm Hgb 10.5(L) 11.9 - 15.5 g/dL [facility] Hct 32.5(L) 35.6 - 45.5 % [facility] Plt 419(H) 150 - 400 K/cumm [facility] MPV 9.3 9.1 - 12.3 fL [facility] RBC 3.10(L) 3.90 - 5.20 M/cumm [facility] MCV 104.8(H) 81.3 - 96.4 fL [facility] MCH 33.9(H) 27.1 - 33.3 pg [facility] MCHC 32.3 32.3 - 35.7 g/dL [facility] RDW CV 18.6(H) 11.1 - 14.9 % [facility] RDW SD 71.7(H) 35.7 - 48.1 fL [facility] NRBC abs 0.00 0.00 - 0.01 K/cumm [facility] Blood 11/27/2024 9:44 PM CDT 11/27/2024 10:41 PM CDT Lee Elena MD LAB BLOOD ORDERABLES Krystyna l Result Performing Organization Address City/[facility] Co de Phone Number [facility] Department [place] [address] * (ABNORMAL) Vitamin D 25 hydroxy (11/27/2024 9:44 PM CDT) [facility] Vitamin D 25-OH 27(L) 30 - 80 ng/mL Blood 11/27/2024 9:44 PM CDT 11/27/2024 10:41 PM CDT Alex Bailey MD LAB BLOOD ORDERABLES Final Resu lt Performing Organization Address [facility] [place] [address] * Protime-INR (11/27/2024 9:44 PM CDT) [facility] PT 10.2 9.7 - 13.0 sec INR 0.95 0.90 - 1.20 [facility] Comment: Interpretive data Oral anticoagulant therapeutic ranges: Venous thromboembolism prophylaxis or treatment: 2.0-3.0 CARDIOLOGY Standard range: 2.0-3.0 High-intensity range: 2.5-3.5 Refer to indication-specific guidelines for appropriate target ranges for prosthetic heart valve replacement. Current interpretive data was last revised on 2019. Blood 11/27/2024 9:44 PM CDT 11/27/2024 10:45 PM CDT Lee Elena MD LAB BLOOD ORDERABLES Krystyna l Result Performing Organization Address [facility] Co de Phone Number [facility] [place] [address] * (ABNORMAL) Phosphorus (11/27/2024 9:44 PM CDT) Pathologist [facility] Phosphorus, pl 6.6(H) 2.3 - 4.5 mg/dL Blood 11/27/2024 9:44 PM CDT 11/27/2024 10:41 PM CDT Lee Elena MD LAB BLOOD ORDERABLES Krystyna l Result Performing Organization Address City/[facility] Co de Phone Number [facility] Department [place] [address] * Magnesium (11/27/2024 9:44 PM CDT) [facility] Magnesium 1.6 1.4 - 2.5 mg/dL Blood 11/27/2024 9:44 PM CDT 11/27/2024 10:41 PM CDT Lee Elena MD LAB BLOOD ORDERABLES Krystyna l Result Performing Organization Address [facility] de Phone Number [facility] [place] [address] * (ABNORMAL) Hepatic function panel (11/27/2024 9:44 PM CDT) [facility] Bilirubin, total 0.4 0.1 - 1.2 mg/dL Bilirubin, direct 0.2 0.1 - 0.3 mg/dL [facility] Protein, pl 7.3 6.5 - 8.5 g/dL [facility] Albumin 3.4(L) 3.5 - 5.0 g/dL [facility] Alk phos 133(H) 40 - 130 Units/L [facility] ALT 17 7 - 45 Units/L [facility] AST 36 10 - 45 Units/L [facility] Blood 11/27/2024 9:44 PM CDT 11/27/2024 10:41 PM CDT Lee Elena MD LAB BLOOD ORDERABLES Krystyna l Result Performing Organization Address [facility]/ZIP Co de Phone Number [facility] Department [place] [address] * (ABNORMAL) Basic metabolic panel (11/27/2024 9:44 PM CDT) Pathologist [facility] Sodium 139 135 - 145 mmol/L Potassium, pl 4.3 3.3 - 4.9 mmol/L [facility] Chloride 101 97 - 110 mmol/L [facility] CO2 31 22 - 32 mmol/L [facility] Anion gap 7 2 - 15 mmol/L [facility] BUN 18 6 - 25 mg/dL [facility] Creatinine 0.50(L) 0.60 - 1.10 mg/dL [facility] Glucose 99 70 - 199 mg/dL [facility] Comment: Interpretive Data Fasting glucose >/= 126 [...] 2022. Calcium 10.0 8.5 - 10.3 mg/dL [facility] Blood 11/27/2024 9:44 PM CDT 11/27/2024 10:41 PM CDT us Lee Elena MD LAB BLOOD ORDERABLES Krystyna l Result [facility] Department [place] [address] * eGFR (11/26/2024 9:38 PM CDT) [facility] eGFR >90 >=60 mL/min/1. 73 m2 Comment: [...] MD LAB BLOOD ORDERABLES Krystyna meyers Result [facility] Department [place] [address] * (ABNORMAL) Differential, auto (11/26/2024 9:38 PM CDT) Neutrophil abs 2.02 1.50 - 6.50 K/cumm Imm gran abs 0.03 0.00 - 0.10 K/cumm [facility] Lymphocyte abs 3.04 0.80 - 3.30 K/cumm [facility] Monocyte abs 0.56 0.20 - 0.80 K/cumm [facility] Eosinophil abs 0.10 0.00 - 0.50 K/cumm [facility] Basophil abs 0.11(H) 0.00 - 0.10 K/cumm [facility] Neutrophil pct 34.4 % [facility] Comment: Interpretive Data Percent cell count reference ranges are not reported, since discordance with absolute values may lead to misinterpretation of CBC data. Current Interpretive Data was last revised on 2017. Imm gran pct 0.5 % [facility] Comment: Interpretive Data Percent cell count reference ranges are not reported, since discordance with absolute values may lead to misinterpretation of CBC data. Current Interpretive Data was last revised on 2017. Lymphocyte pct 51.9 % [facility] Comment: Interpretive Data Percent cell count reference ranges are not reported, since discordance with absolute values may lead to misinterpretation of CBC data. Current Interpretive Data was last revised on 2017. Monocyte pct 9.6 % [facility] Comment: Interpretive Data Percent cell count reference ranges are not reported, since discordance with absolute values may lead to misinterpretation of CBC data. Current Interpretive Data was last revised on 2017. Eosinophil pct 1.7 % [facility] Comment: Interpretive Data Percent cell count reference ranges are not reported, since discordance with absolute values may lead to misinterpretation of CBC data. Current Interpretive Data was last revised on 2017. Basophil pct 1.9 % [facility] Comment: Interpretive Data Percent cell count reference ranges are not reported, since discordance with absolute values may lead to misinterpretation of CBC data. Current Interpretive Data was last revised on 2017. Blood 11/26/2024 9:38 PM CDT 11/26/2024 10:36 PM CDT Lee Elena MD LAB BLOOD ORDERABLES Krystyna meyers Result [facility] Department [place] [address] * (ABNORMAL) CBC with auto differential (11/26/2024 9:38 PM CDT) Pathologist [facility] WBC 5.86 3.80 - 9.90 K/cumm Hgb 9.7(L) 11.9 - 15.5 g/dL [facility] Hct 29.7(L) 35.6 - 45.5 % [facility] Plt 398 150 - 400 K/cumm [facility] MPV 9.2 9.1 - 12.3 fL [facility] RBC 2.87(L) 3.90 - 5.20 M/cumm [facility] MCV 103.5(H) 81.3 - 96.4 fL [facility] MCH 33.8(H) 27.1 - 33.3 pg [facility] MCHC 32.7 32.3 - 35.7 g/dL [facility] RDW CV 18.7(H) 11.1 - 14.9 % [facility] RDW SD 71.5(H) 35.7 - 48.1 fL [facility] NRBC abs 0.00 0.00 - 0.01 K/cumm [facility] Blood 11/26/2024 9:38 PM CDT 11/26/2024 10:36 PM CDT Lee Elena MD LAB BLOOD ORDERABLES Krystyna meyers Result Performing Organization Address [facility] de Phone Number [facility] [place] [address] * (ABNORMAL) Protime-INR (11/26/2024 9:38 PM CDT) PT 9.5(L) 9.7 - 13.0 sec INR 0.88(L) 0.90 - 1.20 [facility] Comment: Interpretive data Oral anticoagulant therapeutic ranges: Venous thromboembolism prophylaxis or treatment: 2.0-3.0 CARDIOLOGY Standard range: 2.0-3.0 High-intensity range: 2.5-3.5 Refer to indication-specific guidelines for appropriate target ranges for prosthetic heart valve replacement. Current interpretive data was last revised on 2019. Blood 11/26/2024 9:38 PM CDT 11/26/2024 10:43 PM CDT Lee Elena MD LAB BLOOD ORDERABLES Krystyna l Result Performing Organization Address [facility] Co de Phone Number [facility] [place] [address] * (ABNORMAL) Phosphorus (11/26/2024 9:38 PM CDT) Phosphorus, pl 5.7(H) 2.3 - 4.5 mg/dL Blood 11/26/2024 9:38 PM CDT 11/26/2024 10:42 PM CDT Lee Elena MD LAB BLOOD ORDERABLES Krystyna l Result Performing Organization Address [facility] Co de Phone Number [facility] [place] [address] * Magnesium (11/26/2024 9:38 PM CDT) Pathologist [facility] Magnesium 2.1 1.4 - 2.5 mg/dL Blood 11/26/2024 9:38 PM CDT 11/26/2024 10:42 PM CDT Lee Elena MD LAB BLOOD ORDERABLES Krystyna l Result Performing Organization Address [facility] de Phone Number [facility] Department [place] [address] * (ABNORMAL) Hepatic function panel (11/26/2024 9:38 PM CDT) Bilirubin, total 0.3 0.1 - 1.2 mg/dL Bilirubin, direct 0.2 0.1 - 0.3 mg/dL [facility] Protein, pl 6.5 6.5 - 8.5 g/dL [facility] Albumin 2.8(L) 3.5 - 5.0 g/dL [facility] Alk phos 132(H) 40 - 130 Units/L [facility] ALT 17 7 - 45 Units/L [facility] AST 38 10 - 45 Units/L [facility] Blood 11/26/2024 9:38 PM CDT 11/26/2024 10:42 PM CDT Lee Elena MD LAB BLOOD ORDERABLES Krystyna l Result Performing Organization Address [facility] Co de Phone Number [facility] Department [place] [address] * (ABNORMAL) Basic metabolic panel (11/26/2024 9:38 PM CDT) [facility] Sodium 141 135 - 145 mmol/L Potassium, pl 4.1 3.3 - 4.9 mmol/L [facility] Chloride 101 97 - 110 mmol/L [facility] CO2 29 22 - 32 mmol/L [facility] Anion gap 11 2 - 15 mmol/L [facility] BUN 15 6 - 25 mg/dL [facility] Creatinine 0.54(L) 0.60 - 1.10 mg/dL [facility] Glucose 89 70 - 199 mg/dL [facility] Comment: Interpretive Data Fasting glucose >/= 126 [...] 2022. Calcium 9.1 8.5 - 10.3 mg/dL [facility] Blood 11/26/2024 9:38 PM CDT 11/26/2024 10:42 PM CDT us Lee Elena MD LAB BLOOD ORDERABLES Krystyna meyers Result [facility] Department [place] [address] * TRANSTHORACIC ECHO (TTE) LIMITED/FOLLOW UP W LTD DOPPLER/CF W CONTRAST (11/26/2024 1:54 PM CDT) [facility] Estimated EF 55-60 % CONS SCIMAGE Anatomical Region Laterality Modality Ultrasound 11/26/2024 1:05 PM CDT Narrative 11/26/2024 2:37 PM CDT [facility] [place] [address] Transthoracic Echocardiographic Report Patient Name: HAYLEY LEÓN L : 1990 (34y 9m) Gender: F Study Date: 11/26/2024 01:05:04 PM Ht(Inch): 61 Wt(Lb): 98.1 BSA: 1.38 Flight Mechanic: Lise De Anda Location: [id number] Order Provider: ALEX BAILEY Heart Rate: 72 [...] Procedure Note Jim Malloy MD - 11/26/2024 [facility] [place] [address] Transthoracic Echocardiographic Report Patient Name: HAYLEY LEÓN L : 1990 (34y 9m) Gender: F Study Date: 11/26/2024 01:05:04 PM Ht(Inch): 61 Wt(Lb): 98.1 BSA: 1.38 Flight Mechanic: Lise De Anda Location: [id number] Order Provider:ALEX BAILEY Heart Rate: 72 BMI: 18.53 BP: 92 / 57 Ref Provider: ALEX BAILEY PROCEDURES: Echocardiographic Report: Follow-Up Echocardiography with contrast,transthoracic, [...] Jim Malloy M.D. 11/26/2024 2:35:57 PM CDT us Alex Bailey MD CV ECHO PROCEDURES Final Result * POCT glucose (11/26/2024 7:38 AM CDT) Glucose, POC 107 70 - 199 mg/dL Blood 11/26/2024 7:38 AM CDT 11/26/2024 7:38 AM CDT Alex Bailey MD LAB POCT ORDERABLES - DEVICE Fi nal Result [facility] Department [place] [address] * eGFR (11/25/2024 9:19 PM CDT) eGFR >90 >=60 mL/min/1. 73 [...] MD LAB BLOOD ORDERABLES Krystyna l Result [facility] Department [place] [address] * Differential, auto (11/25/2024 9:19 PM CDT) Neutrophil abs 1.90 1.50 - 6.50 K/cumm Imm gran abs 0.02 0.00 - 0.10 K/cumm [facility] Lymphocyte abs 2.86 0.80 - 3.30 K/cumm [facility] Monocyte abs 0.53 0.20 - 0.80 K/cumm [facility] Eosinophil abs 0.11 0.00 - 0.50 K/cumm [facility] Basophil abs 0.09 0.00 - 0.10 K/cumm [facility] Neutrophil pct 34.5 % [facility] Comment: Interpretive Data Percent cell count reference ranges are not reported, since discordance with absolute values may lead to misinterpretation of CBC data. Current Interpretive Data was last revised on 2017. Imm gran pct 0.4 % [facility] Comment: Interpretive Data Percent cell count reference ranges are not reported, since discordance with absolute values may lead to misinterpretation of CBC data. Current Interpretive Data was last revised on 2017. Lymphocyte pct 51.9 % [facility] Comment: Interpretive Data Percent cell count reference ranges are not reported, since discordance with absolute values may lead to misinterpretation of CBC data. Current Interpretive Data was last revised on 2017. Monocyte pct 9.6 % [facility] Comment: Interpretive Data Percent cell count reference ranges are not reported, since discordance with absolute values may lead to misinterpretation of CBC data. Current Interpretive Data was last revised on 2017. Eosinophil pct 2.0 % [facility] Comment: Interpretive Data Percent cell count reference ranges are not reported, since discordance with absolute values may lead to misinterpretation of CBC data. Current Interpretive Data was last revised on 2017. Basophil pct 1.6 % [facility] Comment: Interpretive Data Percent cell count reference ranges are not reported, since discordance with absolute values may lead to misinterpretation of CBC data. Current Interpretive Data was last revised on 2017. Blood 11/25/2024 9:19 PM CDT 11/25/2024 10:49 PM CDT Lee Elena MD LAB BLOOD ORDERABLES Krystyna l Result Performing Organization Address [facility] Co de Phone Number [facility] [place] [address] * (ABNORMAL) CBC with auto differential (11/25/2024 9:19 PM CDT) WBC 5.51 3.80 - 9.90 K/cumm Hgb 10.2(L) 11.9 - 15.5 g/dL [facility] Hct 31.9(L) 35.6 - 45.5 % [facility] Plt 466(H) 150 - 400 K/cumm [facility] MPV 9.4 9.1 - 12.3 fL [facility] RBC 3.06(L) 3.90 - 5.20 M/cumm [facility] MCV 104.2(H) 81.3 - 96.4 fL [facility] MCH 33.3 27.1 - 33.3 pg [facility] MCHC 32.0(L) 32.3 - 35.7 g/dL [facility] RDW CV 19.1(H) 11.1 - 14.9 % [facility] RDW SD 72.8(H) 35.7 - 48.1 fL [facility] NRBC abs 0.00 0.00 - 0.01 K/cumm [facility] Blood 11/25/2024 9:19 PM CDT 11/25/2024 10:49 PM CDT Lee Elena MD LAB BLOOD ORDERABLES Krystyna meyers Result Performing Organization Address [facility] Co de Phone Number [facility] [place] [address] * Protime-INR (11/25/2024 9:19 PM CDT) PT 10.0 9.7 - 13.0 sec INR 0.93 0.90 - 1.20 [facility] Comment: Interpretive data Oral anticoagulant therapeutic ranges: Venous thromboembolism prophylaxis or treatment: 2.0-3.0 CARDIOLOGY Standard range: 2.0-3.0 High-intensity range: 2.5-3.5 Refer to indication-specific guidelines for appropriate target ranges for prosthetic heart valve replacement. Current interpretive data was last revised on 2019. Blood 11/25/2024 9:19 PM CDT 11/25/2024 10:46 PM CDT Lee Elena MD LAB BLOOD ORDERABLES Krystyna l Result Performing Organization Address [facility] de Phone Number [facility] Department [place] [address] * (ABNORMAL) Phosphorus (11/25/2024 9:19 PM CDT) Pathologist [facility] Phosphorus, pl 5.2(H) 2.3 - 4.5 mg/dL Blood 11/25/2024 9:19 PM CDT 11/25/2024 10:47 PM CDT Lee Elena MD LAB BLOOD ORDERABLES Krystyna l Result Performing Organization Address [facility] de Phone Number [facility] Department [place] [address] * Magnesium (11/25/2024 9:19 PM CDT) Pathologist [facility] Magnesium 1.6 1.4 - 2.5 mg/dL Blood 11/25/2024 9:19 PM CDT 11/25/2024 10:47 PM CDT Lee Elena MD LAB BLOOD ORDERABLES Krystyna l Result Performing Organization Address [facility]/ZIP Co de Phone Number [facility] Department [place] [address] * (ABNORMAL) Hepatic function panel (11/25/2024 9:19 PM CDT) [facility] Bilirubin, total 0.4 0.1 - 1.2 mg/dL Bilirubin, direct 0.2 0.1 - 0.3 mg/dL [facility] Protein, pl 6.8 6.5 - 8.5 g/dL [facility] Albumin 3.0(L) 3.5 - 5.0 g/dL [facility] Alk phos 142(H) 40 - 130 Units/L [facility] ALT 16 7 - 45 Units/L [facility] AST 35 10 - 45 Units/L [facility] Blood 11/25/2024 9:19 PM CDT 11/25/2024 10:47 PM CDT Lee Elena MD LAB BLOOD ORDERABLES Krystyna l Result [facility] Department [place] [address] * (ABNORMAL) Basic metabolic panel (11/25/2024 9:19 PM CDT) [facility] Sodium 143 135 - 145 mmol/L Potassium, pl 4.3 3.3 - 4.9 mmol/L [facility] Chloride 104 97 - 110 mmol/L [facility] CO2 29 22 - 32 mmol/L [facility] Anion gap 10 2 - 15 mmol/L [facility] BUN 16 6 - 25 mg/dL [facility] Creatinine 0.46(L) 0.60 - 1.10 mg/dL [facility] Glucose 99 70 - 199 mg/dL [facility] Comment: Interpretive Data Fasting glucose >/= 126 [...] 2022. Calcium 9.5 8.5 - 10.3 mg/dL [facility] Blood 11/25/2024 9:19 PM CDT 11/25/2024 10:47 PM CDT us Lee Elena MD LAB BLOOD ORDERABLES Krystyna l Result Performing Organization Address [facility]/ZIP Co de Phone Number [facility] Department [place] [address] * eGFR (11/24/2024 9:18 PM CDT) eGFR >90 >=60 mL/min/1. 73 [...] ORDERABLES Krystyna l Result Performing Organization Address City/[facility]/ZIP Co de Phone Number [facility] Department [place] [address] * Differential, auto (11/24/2024 9:18 PM CDT) Neutrophil abs 1.96 1.50 - 6.50 K/cumm Imm gran abs 0.04 0.00 - 0.10 K/cumm [facility] Lymphocyte abs 2.69 0.80 - 3.30 K/cumm [facility] Monocyte abs 0.52 0.20 - 0.80 K/cumm [facility] Eosinophil abs 0.09 0.00 - 0.50 K/cumm [facility] Basophil abs 0.08 0.00 - 0.10 K/cumm [facility] Neutrophil pct 36.4 % [facility] Comment: Interpretive Data Percent cell count reference ranges are not reported, since discordance with absolute values may lead to misinterpretation of CBC data. Current Interpretive Data was last revised on 2017. Imm gran pct 0.7 % [facility] Comment: Interpretive Data Percent cell count reference ranges are not reported, since discordance with absolute values may lead to misinterpretation of CBC data. Current Interpretive Data was last revised on 2017. Lymphocyte pct 50.0 % [facility] Comment: Interpretive Data Percent cell count reference ranges are not reported, since discordance with absolute values may lead to misinterpretation of CBC data. Current Interpretive Data was last revised on 2017. Monocyte pct 9.7 % [facility] Comment: Interpretive Data Percent cell count reference ranges are not reported, since discordance with absolute values may lead to misinterpretation of CBC data. Current Interpretive Data was last revised on 2017. Eosinophil pct 1.7 % [facility] Comment: Interpretive Data Percent cell count reference ranges are not reported, since discordance with absolute values may lead to misinterpretation of CBC data. Current Interpretive Data was last revised on 2017. Basophil pct 1.5 % [facility] Comment: Interpretive Data Percent cell count reference ranges are not reported, since discordance with absolute values may lead to misinterpretation of CBC data. Current Interpretive Data was last revised on 2017. Blood 11/24/2024 9:18 PM CDT 11/24/2024 10:00 PM CDT Lee Elena MD LAB BLOOD ORDERABLES Krystyna meyers Result [facility] Department [place] [address] * (ABNORMAL) CBC with auto differential (11/24/2024 9:18 PM CDT) Pathologist [facility] WBC 5.38 3.80 - 9.90 K/cumm Hgb 9.4(L) 11.9 - 15.5 g/dL [facility] Hct 28.7(L) 35.6 - 45.5 % [facility] Plt 437(H) 150 - 400 K/cumm [facility] MPV 9.0(L) 9.1 - 12.3 fL [facility] RBC 2.80(L) 3.90 - 5.20 M/cumm [facility] MCV 102.5(H) 81.3 - 96.4 fL [facility] MCH 33.6(H) 27.1 - 33.3 pg [facility] MCHC 32.8 32.3 - 35.7 g/dL [facility] RDW CV 19.4(H) 11.1 - 14.9 % [facility] RDW SD 73.4(H) 35.7 - 48.1 fL [facility] NRBC abs 0.00 0.00 - 0.01 K/cumm [facility] Blood 11/24/2024 9:18 PM CDT 11/24/2024 10:00 PM CDT Lee Elena MD LAB BLOOD ORDERABLES Krystyna meyers Result [facility] Department [place] [address] * Protime-INR (11/24/2024 9:18 PM CDT) Pathologist [facility] PT 10.1 9.7 - 13.0 sec INR 0.94 0.90 - 1.20 [facility] Comment: Interpretive data Oral anticoagulant therapeutic ranges: Venous thromboembolism prophylaxis or treatment: 2.0-3.0 CARDIOLOGY Standard range: 2.0-3.0 High-intensity range: 2.5-3.5 Refer to indication-specific guidelines for appropriate target ranges for prosthetic heart valve replacement. Current interpretive data was last revised on 2019. Blood 11/24/2024 9:18 PM CDT 11/24/2024 10:04 PM CDT Lee Elena MD LAB BLOOD ORDERABLES Krystyna l Result Performing Organization Address City/[facility] Co de Phone Number [facility] [place] [address] * (ABNORMAL) Phosphorus (11/24/2024 9:18 PM CDT) [facility] Phosphorus, pl 4.7(H) 2.3 - 4.5 mg/dL Blood 11/24/2024 9:18 PM CDT 11/24/2024 10:00 PM CDT Lee Elena MD LAB BLOOD ORDERABLES Krystyna l Result Performing Organization Address [facility] Co de Phone Number [facility] [place] [address] * Magnesium (11/24/2024 9:18 PM CDT) [facility] Magnesium 2.0 1.4 - 2.5 mg/dL Blood 11/24/2024 9:18 PM CDT 11/24/2024 10:00 PM CDT Lee Elena MD LAB BLOOD ORDERABLES Krystyna l Result Performing Organization Address [facility] Co de Phone Number [facility] Department [place] [address] * (ABNORMAL) Hepatic function panel (11/24/2024 9:18 PM CDT) [facility] Bilirubin, total 0.3 0.1 - 1.2 mg/dL Bilirubin, direct 0.2 0.1 - 0.3 mg/dL [facility] Protein, pl 6.4(L) 6.5 - 8.5 g/dL [facility] Albumin 2.8(L) 3.5 - 5.0 g/dL [facility] Alk phos 148(H) 40 - 130 Units/L [facility] ALT 14 7 - 45 Units/L [facility] AST 38 10 - 45 Units/L [facility] Blood 11/24/2024 9:18 PM CDT 11/24/2024 10:00 PM CDT Lee Elena MD LAB BLOOD ORDERABLES Krystyna l Result [facility] Department [place] [address] * (ABNORMAL) Basic metabolic panel (11/24/2024 9:18 PM CDT) [facility] Sodium 142 135 - 145 mmol/L Potassium, pl 4.1 3.3 - 4.9 mmol/L [facility] Chloride 104 97 - 110 mmol/L [facility] CO2 30 22 - 32 mmol/L [facility] Anion gap 8 2 - 15 mmol/L [facility] BUN 16 6 - 25 mg/dL [facility] Creatinine 0.51(L) 0.60 - 1.10 mg/dL [facility] Glucose 101 70 - 199 mg/dL [facility] Comment: Interpretive Data Fasting glucose >/= 126 [...] 2022. Calcium 9.0 8.5 - 10.3 mg/dL [facility] Blood 11/24/2024 9:18 PM CDT 11/24/2024 10:00 PM CDT us Lee Elena MD LAB BLOOD ORDERABLES Krystyna l Result Performing Organization Address [facility]/ZIP Co de Phone Number [facility] Department [place] [address] * POCT glucose (11/24/2024 7:49 PM CDT) Glucose, POC 104 70 - 199 mg/dL Blood 11/24/2024 7:49 PM CDT 11/24/2024 7:49 PM CDT us Alex Bailey MD LAB POCT ORDERABLES - DEVICE Fi nal Result Performing Organization Address [facility] Co de Phone Number [facility] [place] [address] * ECG 12 lead (11/24/2024 7:01 AM CDT) Ventricular Rate EKG/Min 77 BPM [facility] Atrial Rate 77 BPM [facility] GA-Interval (MSEC) 134 ms [facility] QRS-Interval (MSEC) 70 ms [facility] QT-Interval (MSEC) 456 ms [facility] QTc 516 ms [facility] P [place] 38 degrees [facility] R [place] 36 degrees [facility] T [place] 137 degrees [facility] Diagnosis Normal sinus rhythm Low voltage QRS T wave abnormality, consider lateral ischemia Prolonged QT Abnormal ECG When compared with ECG of 23-NOV-2024 18:23, (unconfirmed) No significant change was found Confirmed by SHALINI RODRIGUEZ M.D ([id number]) on 11/27/2024 12:19:52 PM [facility] 11/24/2024 7:01 AM CDT 11/27/2024 12:19 PM CDT Lee Elena MD ECG ORDERABLES Final Res ult Performing Organization Address [facility] Clinic/[facility] Co de Phone Number [facility] * eGFR (11/23/2024 10:10 PM CDT) eGFR [...] ORDERABLES Krystyna l Result Performing Organization Address [facility]/ZIP Co de Phone Number [facility] [place] [address] * Differential, auto (11/23/2024 10:10 PM CDT) Neutrophil abs 6.22 1.50 - 6.50 K/cumm Imm gran abs 0.05 0.00 - 0.10 K/cumm [facility] Lymphocyte abs 2.05 0.80 - 3.30 K/cumm [facility] Monocyte abs 0.66 0.20 - 0.80 K/cumm [facility] Eosinophil abs 0.10 0.00 - 0.50 K/cumm [facility] Basophil abs 0.08 0.00 - 0.10 K/cumm [facility] Neutrophil pct 67.9 % [facility] Comment: Interpretive Data Percent cell count reference ranges are not reported, since discordance with absolute values may lead to misinterpretation of CBC data. Current Interpretive Data was last revised on 2017. Imm gran pct 0.5 % [facility] Comment: Interpretive Data Percent cell count reference ranges are not reported, since discordance with absolute values may lead to misinterpretation of CBC data. Current Interpretive Data was last revised on 2017. Lymphocyte pct 22.4 % [facility] Comment: Interpretive Data Percent cell count reference ranges are not reported, since discordance with absolute values may lead to misinterpretation of CBC data. Current Interpretive Data was last revised on 2017. Monocyte pct 7.2 % [facility] Comment: Interpretive Data Percent cell count reference ranges are not reported, since discordance with absolute values may lead to misinterpretation of CBC data. Current Interpretive Data was last revised on 2017. Eosinophil pct 1.1 % [facility] Comment: Interpretive Data Percent cell count reference ranges are not reported, since discordance with absolute values may lead to misinterpretation of CBC data. Current Interpretive Data was last revised on 2017. Basophil pct 0.9 % [facility] Comment: Interpretive Data Percent cell count reference ranges are not reported, since discordance with absolute values may lead to misinterpretation of CBC data. Current Interpretive Data was last revised on 2017. Blood 11/23/2024 10:1 0 PM CDT 11/23/2024 11:09 PM CDT us Lee Elena MD LAB BLOOD ORDERABLES Krystyna meyers Result [facility] Department [place] [address] * (ABNORMAL) CBC with auto differential (11/23/2024 10:10 PM CDT) Pathologist [facility] WBC 9.16 3.80 - 9.90 K/cumm Hgb 9.8(L) 11.9 - 15.5 g/dL [facility] Hct 29.9(L) 35.6 - 45.5 % [facility] Plt 483(H) 150 - 400 K/cumm [facility] MPV 9.2 9.1 - 12.3 fL [facility] RBC 2.92(L) 3.90 - 5.20 M/cumm [facility] MCV 102.4(H) 81.3 - 96.4 fL [facility] MCH 33.6(H) 27.1 - 33.3 pg [facility] MCHC 32.8 32.3 - 35.7 g/dL [facility] RDW CV 19.3(H) 11.1 - 14.9 % [facility] RDW SD 72.0(H) 35.7 - 48.1 fL [facility] NRBC abs 0.00 0.00 - 0.01 K/cumm [facility] Blood 11/23/2024 10:1 0 PM CDT 11/23/2024 11:09 PM CDT us Lee Elena MD LAB BLOOD ORDERABLES Krystyna meyers Result [facility] Department [place] [address] * Protime-INR (11/23/2024 10:10 PM CDT) Pathologist [facility] PT 10.5 9.7 - 13.0 sec INR 0.97 0.90 - 1.20 [facility] Comment: Interpretive data Oral anticoagulant therapeutic [...] ORDERABLES Krystyna l Result Performing Organization Address [facility] de Phone Number [facility] [place] [address] * (ABNORMAL) Phosphorus (11/23/2024 10:10 PM CDT) Phosphorus, pl 5.5(H) 2.3 - 4.5 mg/dL Blood 11/23/2024 10:1 0 PM CDT 11/23/2024 11:09 PM CDT Lee Elena MD LAB BLOOD ORDERABLES Krystyna l Result Performing Organization Address [facility] de Phone Number [facility] [place] [address] * Magnesium (11/23/2024 10:10 PM CDT) Magnesium 1.5 1.4 - 2.5 mg/dL Blood 11/23/2024 10:1 0 PM CDT 11/23/2024 11:09 PM CDT Lee Elena MD LAB BLOOD ORDERABLES Krystyna l Result Performing Organization Address [facility] de Phone Number [facility] [place] [place] [address] * (ABNORMAL) Hepatic function panel (11/23/2024 10:10 PM CDT) Bilirubin, total 0.4 0.1 - 1.2 mg/dL Bilirubin, direct 0.2 0.1 - 0.3 mg/dL [facility] Protein, pl 6.3(L) 6.5 - 8.5 g/dL [facility] Albumin 2.9(L) 3.5 - 5.0 g/dL [facility] Alk phos 143(H) 40 - 130 Units/L [facility] ALT 14 7 - 45 Units/L [facility] AST 37 10 - 45 Units/L [facility] Blood 11/23/2024 10:1 0 PM CDT 11/23/2024 11:09 PM CDT us Lee Elena MD LAB BLOOD ORDERABLES Krystyna l Result [facility] Department [place] [address] * (ABNORMAL) Basic metabolic panel (11/23/2024 10:10 PM CDT) Sodium 140 135 - 145 mmol/L Potassium, pl 3.6 3.3 - 4.9 mmol/L [facility] Chloride 100 97 - 110 mmol/L [facility] CO2 31 22 - 32 mmol/L [facility] Anion gap 9 2 - 15 mmol/L [facility] BUN 15 6 - 25 mg/dL [facility] Creatinine 0.52(L) 0.60 - 1.10 mg/dL [facility] Glucose 90 70 - 199 mg/dL [facility] Comment: Interpretive Data Fasting glucose >/= 126 [...] 2022. Calcium 9.5 8.5 - 10.3 mg/dL [facility] Blood 11/23/2024 10:1 0 PM CDT 11/23/2024 11:09 PM CDT us Lee Elena MD LAB BLOOD ORDERABLES Krystyna l Result Performing Organization Address [facility] Co de Phone Number [facility] [place] [address] * POCT glucose (11/23/2024 9:14 PM CDT) Glucose, POC 107 70 - 199 mg/dL Blood 11/23/2024 9:14 PM CDT 11/23/2024 9:14 PM CDT us Alex Bailey MD LAB POCT ORDERABLES - DEVICE Fi nal Result Performing Organization Address [facility] de Phone Number [facility] [place] [address] * ECG 12 lead (11/23/2024 6:23 PM CDT) Ventricular Rate EKG/Min 84 BPM [facility] Atrial Rate 84 BPM [facility] GA-Interval (MSEC) 118 ms [facility] QRS-Interval (MSEC) 70 ms [facility] QT-Interval (MSEC) 426 ms [facility] QTc 503 ms [facility] P [place] 23 degrees [facility] R [place] 44 degrees [facility] T [place] 136 degrees [facility] Diagnosis Normal sinus rhythm T wave abnormality, consider lateral ischemia Prolonged QT Abnormal ECG When compared with ECG of 20-NOV-2024 13:20, No significant change was found Confirmed by SHALINI RODRIGUEZ M.D ([id number]) on 11/27/2024 12:19:17 PM [facility] 11/23/2024 6:23 PM CDT 11/27/2024 12:19 PM CDT us Lee Elena MD ECG ORDERABLES Final Res ult Performing Organization Address [facility] Co de Phone Number [facility] * eGFR (11/22/2024 9:37 PM CDT) [facility] eGFR >90 >=60 mL/min/1. 73 m2 Comment: [...] MD LAB BLOOD ORDERABLES Krystyna meyers Result [facility] Department [place] [address] * (ABNORMAL) Differential, auto (11/22/2024 9:37 PM CDT) [facility] Neutrophil abs 3.27 1.50 - 6.50 K/cumm Imm gran abs 0.06 0.00 - 0.10 K/cumm [facility] Lymphocyte abs 2.86 0.80 - 3.30 K/cumm [facility] Monocyte abs 0.70 0.20 - 0.80 K/cumm [facility] Eosinophil abs 0.15 0.00 - 0.50 K/cumm [facility] Basophil abs 0.11(H) 0.00 - 0.10 K/cumm [facility] Neutrophil pct 45.8 % [facility] Comment: Interpretive Data Percent cell count reference ranges are not reported, since discordance with absolute values may lead to misinterpretation of CBC data. Current Interpretive Data was last revised on 2017. Imm gran pct 0.8 % [facility] Comment: Interpretive Data Percent cell count reference ranges are not reported, since discordance with absolute values may lead to misinterpretation of CBC data. Current Interpretive Data was last revised on 2017. Lymphocyte pct 40.0 % [facility] Comment: Interpretive Data Percent cell count reference ranges are not reported, since discordance with absolute values may lead to misinterpretation of CBC data. Current Interpretive Data was last revised on 2017. Monocyte pct 9.8 % [facility] Comment: Interpretive Data Percent cell count reference ranges are not reported, since discordance with absolute values may lead to misinterpretation of CBC data. Current Interpretive Data was last revised on 2017. Eosinophil pct 2.1 % [facility] Comment: Interpretive Data Percent cell count reference ranges are not reported, since discordance with absolute values may lead to misinterpretation of CBC data. Current Interpretive Data was last revised on 2017. Basophil pct 1.5 % [facility] Comment: Interpretive Data Percent cell count reference ranges are not reported, since discordance with absolute values may lead to misinterpretation of CBC data. Current Interpretive Data was last revised on 2017. Blood 11/22/2024 9:37 PM CDT 11/22/2024 10:34 PM CDT us Lee Elena MD LAB BLOOD ORDERABLES Krystyna meyers Result [facility] Department [place] [address] * (ABNORMAL) CBC with auto differential (11/22/2024 9:37 PM CDT) WBC 7.15 3.80 - 9.90 K/cumm Hgb 9.4(L) 11.9 - 15.5 g/dL [facility] Hct 28.9(L) 35.6 - 45.5 % [facility] Plt 542(H) 150 - 400 K/cumm [facility] MPV 9.4 9.1 - 12.3 fL [facility] RBC 2.81(L) 3.90 - 5.20 M/cumm [facility] MCV 102.8(H) 81.3 - 96.4 fL [facility] MCH 33.5(H) 27.1 - 33.3 pg [facility] MCHC 32.5 32.3 - 35.7 g/dL [facility] RDW CV 19.6(H) 11.1 - 14.9 % [facility] RDW SD 73.3(H) 35.7 - 48.1 fL [facility] NRBC abs 0.00 0.00 - 0.01 K/cumm [facility] Blood 11/22/2024 9:37 PM CDT 11/22/2024 10:34 PM CDT Lee Elena MD LAB BLOOD ORDERABLES Krystyna l Result Performing Organization Address [facility] de Phone Number [facility] Department [place] [address] * Protime-INR (11/22/2024 9:37 PM CDT) PT 10.1 9.7 - 13.0 sec INR 0.94 0.90 - 1.20 [facility] Comment: Interpretive data Oral anticoagulant therapeutic ranges: Venous thromboembolism prophylaxis or treatment: 2.0-3.0 CARDIOLOGY Standard range: 2.0-3.0 High-intensity range: 2.5-3.5 Refer to indication-specific guidelines for appropriate target ranges for prosthetic heart valve replacement. Current interpretive data was last revised on 2019. Blood 11/22/2024 9:37 PM CDT 11/22/2024 10:54 PM CDT Lee Elena MD LAB BLOOD ORDERABLES Krystyna l Result Performing Organization Address [facility] Co de Phone Number [facility] [place] [address] * (ABNORMAL) Phosphorus (11/22/2024 9:37 PM CDT) [facility] Phosphorus, pl 4.9(H) 2.3 - 4.5 mg/dL Blood 11/22/2024 9:37 PM CDT 11/22/2024 10:33 PM CDT Lee Elena MD LAB BLOOD ORDERABLES [place] [address] * Magnesium (11/22/2024 9:37 PM CDT) [facility] Magnesium 1.6 1.4 - 2.5 mg/dL Blood 11/22/2024 9:37 PM CDT 11/22/2024 10:33 PM CDT Lee Elena MD LAB BLOOD ORDERABLES Krystyna l Result Performing Organization Address City/[facility] [place] [address] * (ABNORMAL) Hepatic function panel (11/22/2024 9:37 PM CDT) [facility] Bilirubin, total 0.4 0.1 - 1.2 mg/dL Bilirubin, direct 0.2 0.1 - 0.3 mg/dL [facility] Protein, pl 6.0(L) 6.5 - 8.5 g/dL [facility] Albumin 2.6(L) 3.5 - 5.0 g/dL [facility] Alk phos 163(H) 40 - 130 Units/L [facility] ALT 12 7 - 45 Units/L [facility] AST 41 10 - 45 Units/L [facility] Blood 11/22/2024 9:37 PM CDT 11/22/2024 10:33 PM CDT Lee Elena MD LAB BLOOD ORDERABLES Krystyna meyers Result Performing Organization Address City/[facility]/ZIP Co de Phone Number [facility] Department [place] [address] * (ABNORMAL) Basic metabolic panel (11/22/2024 9:37 PM CDT) [facility] Sodium 138 135 - 145 mmol/L Potassium, pl 4.3 3.3 - 4.9 mmol/L [facility] Chloride 97 97 - 110 mmol/L [facility] CO2 32 22 - 32 mmol/L [facility] Anion gap 9 2 - 15 mmol/L [facility] BUN 17 6 - 25 mg/dL [facility] Creatinine 0.52(L) 0.60 - 1.10 mg/dL [facility] Glucose 104 70 - 199 mg/dL [facility] Comment: Interpretive Data Fasting glucose >/= 126 [...] 2022. Calcium 8.8 8.5 - 10.3 mg/dL [facility] Blood 11/22/2024 9:37 PM CDT 11/22/2024 10:33 PM CDT Lee Elena MD LAB BLOOD ORDERABLES Krystyna meyers Result Performing Organization Address [facility]/ZIP Co de Phone Number [facility] Department [place] [address] * eGFR (11/21/2024 10:49 PM CDT) [facility] eGFR >90 >=60 mL/min/1. 73 m2 Comment: [...] MD LAB BLOOD ORDERABLES Krystyna meyers Result [facility] Department [place] [address] * (ABNORMAL) Differential, auto (11/21/2024 10:49 PM CDT) [facility] Neutrophil abs 2.76 1.50 - 6.50 K/cumm Imm gran abs 0.05 0.00 - 0.10 K/cumm [facility] Lymphocyte abs 3.11 0.80 - 3.30 K/cumm [facility] Monocyte abs 0.61 0.20 - 0.80 K/cumm [facility] Eosinophil abs 0.17 0.00 - 0.50 K/cumm [facility] Basophil abs 0.14(H) 0.00 - 0.10 K/cumm [facility] Neutrophil pct 40.4 % [facility] Comment: Interpretive Data Percent cell count reference ranges are not reported, since discordance with absolute values may lead to misinterpretation of CBC data. Current Interpretive Data was last revised on 2017. Imm gran pct 0.7 % [facility] Comment: Interpretive Data Percent cell count reference ranges are not reported, since discordance with absolute values may lead to misinterpretation of CBC data. Current Interpretive Data was last revised on 2017. Lymphocyte pct 45.5 % [facility] Comment: Interpretive Data Percent cell count reference ranges are not reported, since discordance with absolute values may lead to misinterpretation of CBC data. Current Interpretive Data was last revised on 2017. Monocyte pct 8.9 % [facility] Comment: Interpretive Data Percent cell count reference ranges are not reported, since discordance with absolute values may lead to misinterpretation of CBC data. Current Interpretive Data was last revised on 2017. Eosinophil pct 2.5 % [facility] Comment: Interpretive Data Percent cell count reference ranges are not reported, since discordance with absolute values may lead to misinterpretation of CBC data. Current Interpretive Data was last revised on 2017. Basophil pct 2.0 % [facility] Comment: Interpretive Data Percent cell count reference ranges are not reported, since discordance with absolute values may lead to misinterpretation of CBC data. Current Interpretive Data was last revised on 2017. Blood 11/21/2024 10:4 9 PM CDT 11/22/2024 12:33 AM CDT Lee Elena MD LAB BLOOD ORDERABLES Krystyna meyers Result [facility] Department [place] [address] * (ABNORMAL) CBC with auto differential (11/21/2024 10:49 PM CDT) WBC 6.84 3.80 - 9.90 K/cumm Hgb 10.1(L) 11.9 - 15.5 g/dL [facility] Hct 30.3(L) 35.6 - 45.5 % [facility] Plt 610(H) 150 - 400 K/cumm [facility] MPV 9.3 9.1 - 12.3 fL [facility] RBC 2.98(L) 3.90 - 5.20 M/cumm [facility] MCV 101.7(H) 81.3 - 96.4 fL [facility] MCH 33.9(H) 27.1 - 33.3 pg [facility] MCHC 33.3 32.3 - 35.7 g/dL [facility] RDW CV 19.7(H) 11.1 - 14.9 % [facility] RDW SD 71.9(H) 35.7 - 48.1 fL [facility] NRBC abs 0.00 0.00 - 0.01 K/cumm [facility] Blood 11/21/2024 10:4 9 PM CDT 11/22/2024 12:33 AM CDT Lee Elena MD LAB BLOOD ORDERABLES Krystyna l Result Performing Organization Address [facility] de Phone Number [facility] Department [place] [address] * Protime-INR (11/21/2024 10:49 PM CDT) PT 10.7 9.7 - 13.0 sec INR 0.99 0.90 - 1.20 [facility] Comment: Interpretive data Oral anticoagulant therapeutic [...] ORDERABLES Krystyna l Result Performing Organization Address [facility] de Phone Number [facility] Department [place] [address] * (ABNORMAL) Phosphorus (11/21/2024 10:49 PM CDT) Pathologist [facility] Phosphorus, pl 5.4(H) 2.3 - 4.5 mg/dL Blood 11/21/2024 10:4 9 PM CDT 11/22/2024 12:32 AM CDT Lee Elena MD LAB BLOOD ORDERABLES Krystyna l Result Performing Organization Address City/[facility]/[place] [address] * Magnesium (11/21/2024 10:49 PM CDT) [facility] Magnesium 1.8 1.4 - 2.5 mg/dL Blood 11/21/2024 10:4 9 PM CDT 11/22/2024 12:32 AM CDT Lee Elena MD LAB BLOOD ORDERABLES Krystyna l Result Performing Organization Address [facility] [place] [address] * (ABNORMAL) Hepatic function panel (11/21/2024 10:49 PM CDT) Pathologist [facility] Bilirubin, total 0.4 0.1 - 1.2 mg/dL Bilirubin, direct 0.3 0.1 - 0.3 mg/dL [facility] Protein, pl 6.2(L) 6.5 - 8.5 g/dL [facility] Albumin 2.4(L) 3.5 - 5.0 g/dL [facility] Alk phos 173(H) 40 - 130 Units/L [facility] ALT 12 7 - 45 Units/L [facility] AST 41 10 - 45 Units/L [facility] Blood 11/21/2024 10:4 9 PM CDT 11/22/2024 12:32 AM CDT Lee Elena MD LAB BLOOD ORDERABLES Krystyna meyers Result [facility] Department [place] [address] * (ABNORMAL) Basic metabolic panel (11/21/2024 10:49 PM CDT) [facility] Sodium 141 135 - 145 mmol/L Potassium, pl 3.9 3.3 - 4.9 mmol/L [facility] Chloride 100 97 - 110 mmol/L [facility] CO2 31 22 - 32 mmol/L [facility] Anion gap 10 2 - 15 mmol/L [facility] BUN 16 6 - 25 mg/dL [facility] Creatinine 0.39(L) 0.60 - 1.10 mg/dL [facility] Glucose 96 70 - 199 mg/dL [facility] Comment: Interpretive Data Fasting glucose >/= 126 [...] 2022. Calcium 9.1 8.5 - 10.3 mg/dL [facility] Blood 11/21/2024 10:4 9 PM CDT 11/22/2024 12:32 AM CDT Lee Elena MD LAB BLOOD ORDERABLES Krystyna meyers Result Performing Organization Address [facility]/ZIP Co de Phone Number [facility] Department [place] [address] * Potassium, whole blood (11/20/2024 10:45 PM CDT) Pathologist [facility] Potassium, bld 4.0 3.3 - 4.9 mmol/L Blood 11/20/2024 10:4 5 PM CDT 11/20/2024 10:51 PM CDT us Martita Hussein MD LAB BLOOD ORDERABLE S Final Result Performing Organization Address City/[facility]/ZIP Co de Phone Number [facility] [place] [address] * eGFR (11/20/2024 7:07 PM CDT) Pathologist [facility] eGFR >90 >=60 mL/min/1. 73 m2 Comment: [...] ORDERABLES Krystyna l Result Performing Organization Address City/[facility]/ZIP Co de Phone Number [facility] Department [place] [address] * Differential, auto (11/20/2024 7:07 PM CDT) Pathologist [facility] Neutrophil abs 3.09 1.50 - 6.50 K/cumm Imm gran abs 0.09 0.00 - 0.10 K/cumm [facility] Lymphocyte abs 3.30 0.80 - 3.30 K/cumm [facility] Monocyte abs 0.65 0.20 - 0.80 K/cumm [facility] Eosinophil abs 0.15 0.00 - 0.50 K/cumm [facility] Basophil abs 0.09 0.00 - 0.10 K/cumm [facility] Neutrophil pct 42.0 % [facility] Comment: Interpretive Data Percent cell count reference ranges are not reported, since discordance with absolute values may lead to misinterpretation of CBC data. Current Interpretive Data was last revised on 2017. Imm gran pct 1.2 % [facility] Comment: Interpretive Data Percent cell count reference ranges are not reported, since discordance with absolute values may lead to misinterpretation of CBC data. Current Interpretive Data was last revised on 2017. Lymphocyte pct 44.8 % [facility] Comment: Interpretive Data Percent cell count reference ranges are not reported, since discordance with absolute values may lead to misinterpretation of CBC data. Current Interpretive Data was last revised on 2017. Monocyte pct 8.8 % [facility] Comment: Interpretive Data Percent cell count reference ranges are not reported, since discordance with absolute values may lead to misinterpretation of CBC data. Current Interpretive Data was last revised on 2017. Eosinophil pct 2.0 % [facility] Comment: Interpretive Data Percent cell count reference ranges are not reported, since discordance with absolute values may lead to misinterpretation of CBC data. Current Interpretive Data was last revised on 2017. Basophil pct 1.2 % [facility] Comment: Interpretive Data Percent cell count reference ranges are not reported, since discordance with absolute values may lead to misinterpretation of CBC data. Current Interpretive Data was last revised on 2017. Blood 11/20/2024 7:07 PM CDT 11/20/2024 7:32 PM CDT Lee Elena MD LAB BLOOD ORDERABLES Krystyna l Result Performing Organization Address [facility] Co de Phone Number [facility] [place] [address] * (ABNORMAL) CBC with auto differential (11/20/2024 7:07 PM CDT) [facility] WBC 7.37 3.80 - 9.90 K/cumm Hgb 10.1(L) 11.9 - 15.5 g/dL [facility] Hct 31.3(L) 35.6 - 45.5 % [facility] Plt 651(H) 150 - 400 K/cumm [facility] MPV 9.4 9.1 - 12.3 fL [facility] RBC 3.07(L) 3.90 - 5.20 M/cumm [facility] MCV 102.0(H) 81.3 - 96.4 fL [facility] MCH 32.9 27.1 - 33.3 pg [facility] MCHC 32.3 32.3 - 35.7 g/dL [facility] RDW CV 20.5(H) 11.1 - 14.9 % [facility] RDW SD 76.1(H) 35.7 - 48.1 fL [facility] NRBC abs 0.00 0.00 - 0.01 K/cumm [facility] Blood 11/20/2024 7:07 PM CDT 11/20/2024 7:32 PM CDT Lee Elena MD LAB BLOOD ORDERABLES Krystyna l Result Performing Organization Address [facility]/ZIP Co de Phone Number [facility] [place] [address] * (ABNORMAL) aPTT (11/20/2024 7:07 PM CDT) Pathologist [facility] aPTT 52(H) 28 - 38 sec Comment: Interpretive Data Heparin therapeutic range: 66.0 - 100.0 seconds. Range based on correlation with therapeutic heparin activity range of 0.3 - 0.7 Units/mL. Current interpretive data was last revised on 2023. Blood 11/20/2024 7:07 PM CDT 11/20/2024 7:38 PM CDT Narrative [facility] - 11/20/2024 7:48 PM CDT Baseline prior to enoxaparin initiation. Alex Bailey MD LAB BLOOD ORDERABLES Final Resu lt Performing Organization Address [facility] de Phone Number [facility] [place] [address] * Protime-INR (11/20/2024 7:07 PM CDT) PT 11.1 9.7 - 13.0 sec INR 1.03 0.90 - 1.20 [facility] Comment: Interpretive data Oral anticoagulant therapeutic ranges: Venous thromboembolism prophylaxis or treatment: 2.0-3.0 CARDIOLOGY Standard range: 2.0-3.0 High-intensity range: 2.5-3.5 Refer to indication-specific guidelines for appropriate target ranges for prosthetic heart valve replacement. Current interpretive data was last revised on 2019. Blood 11/20/2024 7:07 PM CDT 11/20/2024 7:34 PM CDT Result [facility] Lee Elena MD LAB BLOOD ORDERABLES Krystyna l Result Performing Organization Address [facility] de Phone Number [facility] [place] [address] * (ABNORMAL) Phosphorus (11/20/2024 7:07 PM CDT) Phosphorus, pl 5.4(H) 2.3 - 4.5 mg/dL Blood 11/20/2024 7:07 PM CDT 11/20/2024 7:32 PM CDT Lee Elena MD LAB BLOOD ORDERABLES Krystyna l Result [facility] [place] [address] * Magnesium (11/20/2024 7:07 PM CDT) [facility] Magnesium 1.7 1.4 - 2.5 mg/dL Blood 11/20/2024 7:07 PM CDT 11/20/2024 7:32 PM CDT Lee Elena MD LAB BLOOD ORDERABLES Krystyna l Result Performing Organization Address [facility] Co de Phone Number [facility] [place] [address] * (ABNORMAL) Hepatic function panel (11/20/2024 7:07 PM CDT) [facility] Bilirubin, total 0.4 0.1 - 1.2 mg/dL Bilirubin, direct 0.2 0.1 - 0.3 mg/dL [facility] Comment:Hemolyzed; result ma y be falsely decreased Protein, pl 6.3(L) 6.5 - 8.5 g/dL [facility] Albumin 2.6(L) 3.5 - 5.0 g/dL [facility] Alk phos 193(H) 40 - 130 Units/L [facility] ALT 12 7 - 45 Units/L [facility] AST 55(H) 10 - 45 Units/L [facility] Comment:Hemolyzed; result ma y be falsely elevated Blood 11/20/2024 7:07 PM CDT 11/20/2024 7:32 PM CDT Lee Elena MD LAB BLOOD ORDERABLES Krystyna l Result Performing Organization Address City/[facility]/ZIP Co de Phone Number [facility] [place] [address] * Basic metabolic panel (11/20/2024 7:07 PM CDT) [facility] Sodium 142 135 - 145 mmol/L Potassium, pl 4.3 3.3 - 4.9 mmol/L [facility] Comment:Hemolyzed; Potassium value may be falsely elevated by as much as 0.3-0.5 mmol/L. Suggest redraw and reanalysis. Chloride 103 97 - 110 mmol/L [facility] CO2 27 22 - 32 mmol/L [facility] Anion gap 12 2 - 15 mmol/L [facility] BUN 16 6 - 25 mg/dL [facility] Creatinine 0.66 0.60 - 1.10 mg/dL [facility] Glucose 95 70 - 199 mg/dL [facility] Comment: Interpretive Data Fasting glucose >/= 126 [...] 2022. Calcium 9.0 8.5 - 10.3 mg/dL [facility] Blood 11/20/2024 7:07 PM CDT 11/20/2024 7:32 PM CDT Lee Elena MD LAB BLOOD ORDERABLES Krystyna meyers Result [facility] [place] [address] * ECG 12 lead (11/20/2024 1:20 PM CDT) [facility] Ventricular Rate EKG/Min 78 BPM [facility] Atrial Rate 78 BPM [facility] GA-Interval (MSEC) 126 ms [facility] QRS-Interval (MSEC) 68 ms [facility] QT-Interval (MSEC) 448 ms [facility] QTc 510 ms [facility] P [place] 22 degrees [facility] R [place] 55 degrees [facility] T [place] 124 degrees [facility] Diagnosis Normal sinus rhythm T wave abnormality, consider lateral ischemia Prolonged QT Abnormal ECG When compared with ECG of 18-NOV-2024 13:40, (unconfirmed) Nonspecific T wave abnormality no longer evident in Inferior leads T wave inversion less evident in Lateral leads Confirmed by SHALINI RODRIGUEZ M.D ([id number]) on 11/21/2024 9:46:31 AM [facility] 11/20/2024 1:20 PM CDT 11/21/2024 9:46 AM CDT us Lee Elena MD ECG ORDERABLES Final Res ult Performing Organization Address City/[facility]/ZIP Co de Phone Number [facility] * [employer] Specimen Tracking Order Blood (11/20/2024 10:37 AM CDT) Pathologist [facility] Tracking Order Received Blood 11/20/2024 10:3 7 AM CDT 11/20/2024 11:49 AM CDT Narrative [facility] - 11/29/2024 1:58 PM CDT Please read the [employer] [facility] requisition for specimen collection requirements. us Akash Sharma MD LAB BODY FLUIDS AND STOOLS ORDERABLES Final Result Performing Organization Address [facility] Co de Phone Number [facility] [place] [address] * Genomics ([facility]) (11/20/2024 12:00 AM CDT) Blood (Peripheral Blood For Pathologist Review) 11/20/2024 11/20/2024 Narrative [facility] - 12/19/2024 12:31 PM CDT REPORT IMAGES AND/OR SCANNED DOCUMENTS ONLY VIEWABLE IN PDF FORMAT Akash Sharma MD LAB GENETIC TEST ING Edited Result - Final [facility] [address] [place] [address] * eGFR (11/19/2024 8:20 PM CDT) eGFR [...] MD LAB BLOOD ORDERABLES Krystyna meyers Result [facility] [place] [address] * Differential, auto (11/19/2024 8:20 PM CDT) Neutrophil abs 3.74 1.50 - 6.50 K/cumm Imm gran abs 0.06 0.00 - 0.10 K/cumm [facility] Lymphocyte abs 2.61 0.80 - 3.30 K/cumm [facility] Monocyte abs 0.72 0.20 - 0.80 K/cumm [facility] Eosinophil abs 0.09 0.00 - 0.50 K/cumm [facility] Basophil abs 0.08 0.00 - 0.10 K/cumm [facility] Neutrophil pct 51.2 % [facility] Comment: Interpretive Data Percent cell count reference ranges are not reported, since discordance with absolute values may lead to misinterpretation of CBC data. Current Interpretive Data was last revised on 2017. Imm gran pct 0.8 % [facility] Comment: Interpretive Data Percent cell count reference ranges are not reported, since discordance with absolute values may lead to misinterpretation of CBC data. Current Interpretive Data was last revised on 2017. Lymphocyte pct 35.8 % [facility] Comment: Interpretive Data Percent cell count reference ranges are not reported, since discordance with absolute values may lead to misinterpretation of CBC data. Current Interpretive Data was last revised on 2017. Monocyte pct 9.9 % [facility] Comment: Interpretive Data Percent cell count reference ranges are not reported, since discordance with absolute values may lead to misinterpretation of CBC data. Current Interpretive Data was last revised on 2017. Eosinophil pct 1.2 % [facility] Comment: Interpretive Data Percent cell count reference ranges are not reported, since discordance with absolute values may lead to misinterpretation of CBC data. Current Interpretive Data was last revised on 2017. Basophil pct 1.1 % [facility] Comment: Interpretive Data Percent cell count reference ranges are not reported, since discordance with absolute values may lead to misinterpretation of CBC data. Current Interpretive Data was last revised on 2017. Blood 11/19/2024 8:20 PM CDT 11/19/2024 9:33 PM CDT us Lee Elena MD LAB BLOOD ORDERABLES Krystyna l Result [facility] [place] [address] * (ABNORMAL) CBC with auto differential (11/19/2024 8:20 PM CDT) WBC 7.30 3.80 - 9.90 K/cumm Hgb 9.1(L) 11.9 - 15.5 g/dL [facility] Hct 27.7(L) 35.6 - 45.5 % [facility] Plt 627(H) 150 - 400 K/cumm [facility] MPV 9.9 9.1 - 12.3 fL [facility] RBC 2.75(L) 3.90 - 5.20 M/cumm [facility] MCV 100.7(H) 81.3 - 96.4 fL [facility] MCH 33.1 27.1 - 33.3 pg [facility] MCHC 32.9 32.3 - 35.7 g/dL [facility] RDW CV 20.7(H) 11.1 - 14.9 % [facility] RDW SD 75.5(H) 35.7 - 48.1 fL [facility] NRBC abs 0.00 0.00 - 0.01 K/cumm [facility] Blood 11/19/2024 8:20 PM CDT 11/19/2024 9:33 PM CDT us Lee Elena MD LAB BLOOD ORDERABLES Krystyna meyers Result [facility] Department [place] [address] * Protime-INR (11/19/2024 8:20 PM CDT) PT 10.6 9.7 - 13.0 sec INR 0.98 0.90 - 1.20 [facility] Comment: Interpretive data Oral anticoagulant therapeutic ranges: Venous thromboembolism prophylaxis or treatment: 2.0-3.0 CARDIOLOGY Standard range: 2.0-3.0 High-intensity range: 2.5-3.5 Refer to indication-specific guidelines for appropriate target ranges for prosthetic heart valve replacement. Current interpretive data was last revised on 2019. Blood 11/19/2024 8:20 PM CDT 11/19/2024 9:36 PM CDT us Lee Elena MD LAB BLOOD ORDERABLES Krystyna l Result Performing Organization Address City/[facility] Co de Phone Number [facility] [place] [address] * Phosphorus (11/19/2024 8:20 PM CDT) Pathologist [facility] Phosphorus, pl 4.2 2.3 - 4.5 mg/dL Blood 11/19/2024 8:20 PM CDT 11/19/2024 9:32 PM CDT Lee Elena MD LAB BLOOD ORDERABLES Krystyna l Result Performing Organization Address [facility] Co de Phone Number [facility] [place] [address] * Magnesium (11/19/2024 8:20 PM CDT) [facility] Magnesium 2.0 1.4 - 2.5 mg/dL Blood 11/19/2024 8:20 PM CDT 11/19/2024 9:32 PM CDT Lee Elena MD LAB BLOOD ORDERABLES Krystyna l Result Performing Organization Address [facility] Co de Phone Number [facility] [place] [place] [address] * (ABNORMAL) Hepatic function panel (11/19/2024 8:20 PM CDT) [facility] Bilirubin, total 0.4 0.1 - 1.2 mg/dL Bilirubin, direct 0.3 0.1 - 0.3 mg/dL [facility] Protein, pl 5.7(L) 6.5 - 8.5 g/dL [facility] Albumin 2.2(L) 3.5 - 5.0 g/dL [facility] Alk phos 189(H) 40 - 130 Units/L [facility] ALT 12 7 - 45 Units/L [facility] AST 49(H) 10 - 45 Units/L [facility] Blood 11/19/2024 8:20 PM CDT 11/19/2024 9:32 PM CDT Lee Elena MD LAB BLOOD ORDERABLES Krystyna l Result Performing Organization Address [facility] Co de Phone Number [facility] Department [place] [address] * (ABNORMAL) Basic metabolic panel (11/19/2024 8:20 PM CDT) Pathologist [facility] Sodium 138 135 - 145 mmol/L Potassium, pl 4.2 3.3 - 4.9 mmol/L [facility] Chloride 103 97 - 110 mmol/L [facility] CO2 28 22 - 32 mmol/L [facility] Anion gap 7 2 - 15 mmol/L [facility] BUN 15 6 - 25 mg/dL [facility] Creatinine 0.40(L) 0.60 - 1.10 mg/dL [facility] Glucose 93 70 - 199 mg/dL [facility] Comment: Interpretive Data Fasting glucose >/= 126 [...] 2022. Calcium 8.4(L) 8.5 - 10.3 mg/dL [facility] Blood 11/19/2024 8:20 PM CDT 11/19/2024 9:32 PM CDT Lee Elena MD LAB BLOOD ORDERABLES Krystyna l Result Performing Organization Address [facility] Co de Phone Number [facility] Department [place] [address] * POCT glucose (11/19/2024 7:53 AM CDT) Pathologist [facility] Glucose, POC 112 70 - 199 mg/dL Blood 11/19/2024 7:53 AM CDT 11/19/2024 7:53 AM CDT us Alex Bailey MD LAB POCT ORDERABLES - DEVICE Fi nal Result [facility] [place] [address] * (ABNORMAL) Differential, auto (11/18/2024 9:53 PM CDT) [facility] Neutrophil abs 5.36 1.50 - 6.50 K/cumm Imm gran abs 0.06 0.00 - 0.10 K/cumm [facility] Lymphocyte abs 2.35 0.80 - 3.30 K/cumm [facility] Monocyte abs 0.81(H) 0.20 - 0.80 K/cumm [facility] Eosinophil abs 0.17 0.00 - 0.50 K/cumm [facility] Basophil abs 0.07 0.00 - 0.10 K/cumm [facility] Neutrophil pct 60.8 % [facility] Comment: Interpretive Data Percent cell count reference ranges are not reported, since discordance with absolute values may lead to misinterpretation of CBC data. Current Interpretive Data was last revised on 2017. Imm gran pct 0.7 % [facility] Comment: Interpretive Data Percent cell count reference ranges are not reported, since discordance with absolute values may lead to misinterpretation of CBC data. Current Interpretive Data was last revised on 2017. Lymphocyte pct 26.6 % [facility] Comment: Interpretive Data Percent cell count reference ranges are not reported, since discordance with absolute values may lead to misinterpretation of CBC data. Current Interpretive Data was last revised on 2017. Monocyte pct 9.2 % [facility] Comment: Interpretive Data Percent cell count reference ranges are not reported, since discordance with absolute values may lead to misinterpretation of CBC data. Current Interpretive Data was last revised on 2017. Eosinophil pct 1.9 % [facility] Comment: Interpretive Data Percent cell count reference ranges are not reported, since discordance with absolute values may lead to misinterpretation of CBC data. Current Interpretive Data was last revised on 2017. Basophil pct 0.8 % [facility] Comment: Interpretive Data Percent cell count reference ranges are not reported, since discordance with absolute values may lead to misinterpretation of CBC data. Current Interpretive Data was last revised on 2017. Blood 11/18/2024 9:53 PM CDT 11/18/2024 11:34 PM CDT Lee Elena MD LAB BLOOD ORDERABLES Krystyna meyers Result [facility] Department [place] [address] * (ABNORMAL) CBC with auto differential (11/18/2024 9:53 PM CDT) WBC 8.82 3.80 - 9.90 K/cumm Hgb 9.2(L) 11.9 - 15.5 g/dL [facility] Hct 27.9(L) 35.6 - 45.5 % [facility] Plt 649(H) 150 - 400 K/cumm [facility] MPV 9.9 9.1 - 12.3 fL [facility] RBC 2.79(L) 3.90 - 5.20 M/cumm [facility] MCV 100.0(H) 81.3 - 96.4 fL [facility] MCH 33.0 27.1 - 33.3 pg [facility] MCHC 33.0 32.3 - 35.7 g/dL [facility] RDW CV 20.7(H) 11.1 - 14.9 % [facility] RDW SD 74.5(H) 35.7 - 48.1 fL [facility] NRBC abs 0.00 0.00 - 0.01 K/cumm [facility] Blood 11/18/2024 9:53 PM CDT 11/18/2024 11:34 PM CDT Lee Elena MD LAB BLOOD ORDERABLES Krystyna l Result Performing Organization Address City/[facility]/ZIP Co de Phone Number [facility] Department [place] [address] * Blood culture Blood (11/18/2024 9:53 PM CDT) Report Final Report: No growth Blood 11/18/2024 9:53 PM CDT 11/19/2024 1:12 AM CDT Narrative [facility] - 11/23/2024 7:00 AM CDT Collection->Peripheral 1. [...] performance characteristics have been verified by the [facility]. For questions about this culture, contact the Microbiology Laboratory at [phone]. Interpretive data was last revised on 24. us Lee Elena MD LAB MICROBIOLOGY - GENERA L ORDERABLES Final Result Performing Organization Address City/[facility]/ZIP Co de Phone Number [facility] Department [place] [address] * Protime-INR (11/18/2024 9:53 PM CDT) PT 10.8 9.7 - 13.0 sec INR 1.00 0.90 - 1.20 [facility] Comment: Interpretive data Oral anticoagulant therapeutic ranges: Venous thromboembolism prophylaxis or treatment: 2.0-3.0 CARDIOLOGY Standard range: 2.0-3.0 High-intensity range: 2.5-3.5 Refer to indication-specific guidelines for appropriate target ranges for prosthetic heart valve replacement. Current interpretive data was last revised on 2019. Blood 11/18/2024 9:53 PM CDT 11/18/2024 11:31 PM CDT us Lee Elena MD LAB BLOOD ORDERABLES Krystyna Result [facility] Department [place] [address] * eGFR (11/18/2024 3:57 PM CDT) eGFR [...] ORDERABLES Krystyna l Result Performing Organization Address [facility] Co de Phone Number [facility] [place] [address] * (ABNORMAL) Phosphorus (11/18/2024 3:57 PM CDT) Pathologist [facility] Phosphorus, pl 4.8(H) 2.3 - 4.5 mg/dL Blood 11/18/2024 3:57 PM CDT 11/18/2024 4:11 PM CDT Lee Elena MD LAB BLOOD ORDERABLES Krystyna l Result Performing Organization Address [facility] Co de Phone Number [facility] Department [place] [address] * Magnesium (11/18/2024 3:57 PM CDT) [facility] Magnesium 1.6 1.4 - 2.5 mg/dL Blood 11/18/2024 3:57 PM CDT 11/18/2024 4:11 PM CDT Lee Elena MD LAB BLOOD ORDERABLES Krystyna l Result Performing Organization Address [facility] de Phone Number [facility] [place] [address] * (ABNORMAL) Hepatic function panel (11/18/2024 3:57 PM CDT) Bilirubin, total 0.5 0.1 - 1.2 mg/dL Bilirubin, direct 0.4(H) 0.1 - 0.3 mg/dL [facility] Protein, pl 5.8(L) 6.5 - 8.5 g/dL [facility] Albumin 2.5(L) 3.5 - 5.0 g/dL [facility] Alk phos 207(H) 40 - 130 Units/L [facility] ALT 10 7 - 45 Units/L [facility] AST 43 10 - 45 Units/L [facility] Blood 11/18/2024 3:57 PM CDT 11/18/2024 4:11 PM CDT Lee Elena MD LAB BLOOD ORDERABLES Krystyna l Result [facility] [place] [address] * (ABNORMAL) Basic metabolic panel (11/18/2024 3:57 PM CDT) Pathologist [facility] Sodium 140 135 - 145 mmol/L Potassium, pl 4.2 3.3 - 4.9 mmol/L [facility] Chloride 102 97 - 110 mmol/L [facility] CO2 29 22 - 32 mmol/L [facility] Anion gap 9 2 - 15 mmol/L [facility] BUN 13 6 - 25 mg/dL [facility] Creatinine 0.44(L) 0.60 - 1.10 mg/dL [facility] Glucose 92 70 - 199 mg/dL [facility] Comment: Interpretive Data Fasting glucose >/= 126 [...] 2022. Calcium 8.4(L) 8.5 - 10.3 mg/dL [facility] Blood 11/18/2024 3:57 PM CDT 11/18/2024 4:11 PM CDT us Lee Elena MD LAB BLOOD ORDERABLES Krystyna l Result Performing Organization Address [facility]/ZIP Co de Phone Number [facility] [place] [address] * ECG 12 lead (11/18/2024 1:40 PM CDT) Ventricular Rate EKG/Min 86 BPM [facility] Atrial Rate 86 BPM [facility] GA-Interval (MSEC) 104 ms [facility] QRS-Interval (MSEC) 74 ms [facility] QT-Interval (MSEC) 422 ms [facility] QTc 504 ms [facility] P [place] 28 degrees [facility] R [place] 78 degrees [facility] T [place] 159 degrees [facility] Diagnosis Sinus rhythm with short GA T wave abnormality, consider lateral ischemia Prolonged QT Abnormal ECG When compared with ECG of 16-NOV-2024 07:09, Nonspecific T wave abnormality no longer evident in Anterior leads Inverted T waves have replaced nonspecific T wave abnormality in Lateral leads Confirmed by SHALINI RODRIGUEZ M.D ([id number]) on 11/20/2024 4:17:45 PM [facility] 11/18/2024 1:40 PM CDT 11/20/2024 4:17 PM CDT Lee Elena MD ECG ORDERABLES Final Res ult Performing Organization Address [facility] Co de Phone Number [facility] * POCT glucose (11/18/2024 12:02 AM CDT) Pathologist [facility] Glucose, POC 104 70 - 199 mg/dL Blood 11/18/2024 12:0 2 AM CDT 11/18/2024 12:02 AM CDT Lee Elena MD LAB POCT ORDERABLES - DEV ICE Final Result Performing Organization Address City/[facility]/ZIP Co de Phone Number [facility] [place] [address] * eGFR (11/17/2024 10:42 PM CDT) [facility] eGFR >90 >=60 mL/min/1. 73 m2 Comment: [...] MD LAB BLOOD ORDERABLES Krystyna meyers Result [facility] [place] [address] * Differential, auto (11/17/2024 10:42 PM CDT) [facility] Neutrophil abs 4.62 1.50 - 6.50 K/cumm Imm gran abs 0.08 0.00 - 0.10 K/cumm [facility] Lymphocyte abs 2.27 0.80 - 3.30 K/cumm [facility] Monocyte abs 0.73 0.20 - 0.80 K/cumm [facility] Eosinophil abs 0.13 0.00 - 0.50 K/cumm [facility] Basophil abs 0.08 0.00 - 0.10 K/cumm [facility] Neutrophil pct 58.5 % [facility] Comment: Interpretive Data Percent cell count reference ranges are not reported, since discordance with absolute values may lead to misinterpretation of CBC data. Current Interpretive Data was last revised on 2017. Imm gran pct 1.0 % [facility] Comment: Interpretive Data Percent cell count reference ranges are not reported, since discordance with absolute values may lead to misinterpretation of CBC data. Current Interpretive Data was last revised on 2017. Lymphocyte pct 28.7 % [facility] Comment: Interpretive Data Percent cell count reference ranges are not reported, since discordance with absolute values may lead to misinterpretation of CBC data. Current Interpretive Data was last revised on 2017. Monocyte pct 9.2 % [facility] Comment: Interpretive Data Percent cell count reference ranges are not reported, since discordance with absolute values may lead to misinterpretation of CBC data. Current Interpretive Data was last revised on 2017. Eosinophil pct 1.6 % [facility] Comment: Interpretive Data Percent cell count reference ranges are not reported, since discordance with absolute values may lead to misinterpretation of CBC data. Current Interpretive Data was last revised on 2017. Basophil pct 1.0 % [facility] Comment: Interpretive Data Percent cell count reference ranges are not reported, since discordance with absolute values may lead to misinterpretation of CBC data. Current Interpretive Data was last revised on 2017. Blood 11/17/2024 10:4 2 PM CDT 11/17/2024 11:26 PM CDT Lee Elena MD LAB BLOOD ORDERABLES Krystyna meyers Result [facility] Department of Laboratories [place], [place] [id number] * (ABNORMAL) CBC with auto differential (11/17/2024 10:42 PM CDT) WBC 7.91 3.80 - 9.90 K/cumm Hgb 9.2(L) 11.9 - 15.5 g/dL [facility] Hct 27.9(L) 35.6 - 45.5 % [facility] Plt 666(H) 150 - 400 K/cumm [facility] MPV 10.0 9.1 - 12.3 fL [facility] RBC 2.81(L) 3.90 - 5.20 M/cumm [facility] MCV 99.3(H) 81.3 - 96.4 fL [facility] MCH 32.7 27.1 - 33.3 pg [facility] MCHC 33.0 32.3 - 35.7 g/dL [facility] RDW CV 21.2(H) 11.1 - 14.9 % [facility] RDW SD 75.9(H) 35.7 - 48.1 fL [facility] NRBC abs 0.00 0.00 - 0.01 K/cumm [facility] Blood 11/17/2024 10:4 2 PM CDT 11/17/2024 11:26 PM CDT Lee Elena MD LAB BLOOD ORDERABLES Krystyna meyers Result [facility] Department [place] [address] * Blood culture Blood (11/17/2024 10:42 PM CDT) Report Final Report: No growth Blood 11/17/2024 10:4 2 PM CDT 11/17/2024 11:21 PM CDT Narrative [facility] - 11/22/2024 7:00 AM CDT Collection->Peripheral [...] performance characteristics have been verified by the [facility]. For questions about this culture, contact the Microbiology Laboratory at [phone]. Interpretive data was last revised on 24. Lee Elena MD LAB MICROBIOLOGY - GENERA L ORDERABLES Final Result Performing Organization Address [facility] Co de Phone Number [facility] [place] [address] * Protime-INR (11/17/2024 10:42 PM CDT) PT 12.0 9.7 - 13.0 sec INR 1.11 0.90 - 1.20 [facility] Comment: Interpretive data Oral anticoagulant therapeutic [...] ORDERABLES Krystyna l Result Performing Organization Address [facility] Co de Phone Number [facility] [place] [address] * Phosphorus (11/17/2024 10:42 PM CDT) Phosphorus, pl 3.7 2.3 - 4.5 mg/dL Blood 11/17/2024 10:4 2 PM CDT 11/17/2024 11:26 PM CDT Lee Elena MD LAB BLOOD ORDERABLES Krystyna l Result Performing Organization Address City/[facility]/ZIP Co de Phone Number [facility] [place] [address] * Magnesium (11/17/2024 10:42 PM CDT) Pathologist [facility] Magnesium 1.8 1.4 - 2.5 mg/dL Blood 11/17/2024 10:4 2 PM CDT 11/17/2024 11:26 PM CDT Lee Elena MD LAB BLOOD ORDERABLES Krystyna l Result Performing Organization Address [facility] [place] [address] * (ABNORMAL) Hepatic function panel (11/17/2024 10:42 PM CDT) Bilirubin, total 0.5 0.1 - 1.2 mg/dL Bilirubin, direct 0.4(H) 0.1 - 0.3 mg/dL [facility] Protein, pl 5.4(L) 6.5 - 8.5 g/dL [facility] Albumin 2.2(L) 3.5 - 5.0 g/dL [facility] Alk phos 186(H) 40 - 130 Units/L [facility] ALT 11 7 - 45 Units/L [facility] AST 44 10 - 45 Units/L [facility] Blood 11/17/2024 10:4 2 PM CDT 11/17/2024 11:26 PM CDT Lee Elena MD LAB BLOOD ORDERABLES Krystyna l Result Performing Organization Address [facility] [place] [address] * (ABNORMAL) Basic metabolic panel (11/17/2024 10:42 PM CDT) Sodium 139 135 - 145 mmol/L Potassium, pl 4.2 3.3 - 4.9 mmol/L [facility] Chloride 106 97 - 110 mmol/L [facility] CO2 28 22 - 32 mmol/L [facility] Anion gap 5 2 - 15 mmol/L [facility] BUN 10 6 - 25 mg/dL [facility] Creatinine 0.43(L) 0.60 - 1.10 mg/dL [facility] Glucose 99 70 - 199 mg/dL [facility] Comment: Interpretive Data Fasting glucose >/= 126 [...] 2022. Calcium 8.4(L) 8.5 - 10.3 mg/dL [facility] Blood 11/17/2024 10:4 2 PM CDT 11/17/2024 11:26 PM CDT Lee Elena MD LAB BLOOD ORDERABLES Krystyna l Result [facility] Department [place] [address] * POCT glucose (11/17/2024 7:38 PM CDT) Glucose, POC 101 70 - 199 mg/dL Blood 11/17/2024 7:38 PM CDT 11/17/2024 7:38 PM CDT Lee Elena MD LAB POCT ORDERABLES - DEV ICE Final Result [facility] [place] [address] * POCT glucose (11/17/2024 3:39 PM CDT) Glucose, POC 95 70 - 199 mg/dL Blood 11/17/2024 3:39 PM CDT 11/17/2024 3:39 PM CDT us Lee Elena MD LAB POCT ORDERABLES - DEV ICE Final Result Performing Organization Address [facility] [place] [address] * POCT glucose (11/17/2024 11:25 AM CDT) Glucose, POC 99 70 - 199 mg/dL Blood 11/17/2024 11:2 5 AM CDT 11/17/2024 11:25 AM CDT us Lee Elena MD LAB POCT ORDERABLES - DEV ICE Final Result Performing Organization Address City/[facility]/ZIP Co de Phone Number [facility] [place] [address] * POCT glucose (11/17/2024 7:43 AM CDT) Glucose, POC 108 70 - 199 mg/dL Blood 11/17/2024 7:43 AM CDT 11/17/2024 7:43 AM CDT us Lee Elena MD LAB POCT ORDERABLES - DEV ICE Final Result Performing Organization Address City/[facility]/ZIP Co de Phone Number [facility] [place] [address] * POCT glucose (11/17/2024 5:04 AM CDT) Glucose, POC 110 70 - 199 mg/dL Blood 11/17/2024 5:04 AM CDT 11/17/2024 5:04 AM CDT Lee Elena MD LAB POCT ORDERABLES - DEV ICE Final Result Performing Organization Address City/[facility]/ZIP Co de Phone Number [facility] Department [place] [address] * POCT glucose (11/17/2024 12:06 AM CDT) Glucose, POC 102 70 - 199 mg/dL Blood 11/17/2024 12:0 6 AM CDT 11/17/2024 12:06 AM CDT Lee Elena MD LAB POCT ORDERABLES - DEV ICE Final Result Performing Organization Address City/[facility] de Phone Number [facility] [place] [address] * eGFR (11/16/2024 9:38 PM CDT) Pathologist [facility] eGFR >90 >=60 mL/min/1. 73 m2 Comment: [...] MD LAB BLOOD ORDERABLES Krystyna meyers Result [facility] Department [place] [address] * (ABNORMAL) Differential, auto (11/16/2024 9:38 PM CDT) Neutrophil abs 9.72(H) 1.50 - 6.50 K/cumm Imm gran abs 0.14(H) 0.00 - 0.10 K/cumm [facility] Lymphocyte abs 1.26 0.80 - 3.30 K/cumm [facility] Monocyte abs 0.53 0.20 - 0.80 K/cumm [facility] Eosinophil abs 0.06 0.00 - 0.50 K/cumm [facility] Basophil abs 0.08 0.00 - 0.10 K/cumm [facility] Neutrophil pct 82.4 % [facility] Comment: Interpretive Data Percent cell count reference ranges are not reported, since discordance with absolute values may lead to misinterpretation of CBC data. Current Interpretive Data was last revised on 2017. Imm gran pct 1.2 % [facility] Comment: Interpretive Data Percent cell count reference ranges are not reported, since discordance with absolute values may lead to misinterpretation of CBC data. Current Interpretive Data was last revised on 2017. Lymphocyte pct 10.7 % [facility] Comment: Interpretive Data Percent cell count reference ranges are not reported, since discordance with absolute values may lead to misinterpretation of CBC data. Current Interpretive Data was last revised on 2017. Monocyte pct 4.5 % [facility] Comment: Interpretive Data Percent cell count reference ranges are not reported, since discordance with absolute values may lead to misinterpretation of CBC data. Current Interpretive Data was last revised on 2017. Eosinophil pct 0.5 % [facility] Comment: Interpretive Data Percent cell count reference ranges are not reported, since discordance with absolute values may lead to misinterpretation of CBC data. Current Interpretive Data was last revised on 2017. Basophil pct 0.7 % [facility] Comment: Interpretive Data Percent cell count reference ranges are not reported, since discordance with absolute values may lead to misinterpretation of CBC data. Current Interpretive Data was last revised on 2017. Blood 11/16/2024 9:38 PM CDT 11/16/2024 10:38 PM CDT us Lee Elena MD LAB BLOOD ORDERABLES Krystyna meyers Result [facility] Department [place] [address] * (ABNORMAL) CBC with auto differential (11/16/2024 9:38 PM CDT) WBC 11.79(H) 3.80 - 9.90 K/cumm Hgb 10.1(L) 11.9 - 15.5 g/dL [facility] Hct 30.2(L) 35.6 - 45.5 % [facility] Plt 718(H) 150 - 400 K/cumm [facility] MPV 10.5 9.1 - 12.3 fL [facility] RBC 3.12(L) 3.90 - 5.20 M/cumm [facility] MCV 96.8(H) 81.3 - 96.4 fL [facility] MCH 32.4 27.1 - 33.3 pg [facility] MCHC 33.4 32.3 - 35.7 g/dL [facility] RDW CV 21.5(H) 11.1 - 14.9 % [facility] RDW SD 73.1(H) 35.7 - 48.1 fL [facility] NRBC abs 0.00 0.00 - 0.01 K/cumm [facility] Blood 11/16/2024 9:38 PM CDT 11/16/2024 10:38 PM CDT Lee Elena MD LAB BLOOD ORDERABLES Krystyna l Result Performing Organization Address City/[facility]/ZIP Co de Phone Number [facility] Department [place] [address] * Blood culture Blood (11/16/2024 9:38 PM CDT) Report Final Report: No growth Blood 11/16/2024 9:38 PM CDT 11/16/2024 10:38 PM CDT Narrative [facility] - 11/21/2024 7:00 AM CDT From [...] performance characteristics have been verified by the [facility]. For questions about this culture, contact the Microbiology Laboratory at [phone]. Interpretive data was last revised on 24. us Lee Elena MD LAB MICROBIOLOGY - GENERA L ORDERABLES Final Result Performing Organization Address City/[facility]/ZIP Co de Phone Number [facility] Department [place] [address] * Protime-INR (11/16/2024 9:38 PM CDT) PT 12.6 9.7 - 13.0 sec INR 1.16 0.90 - 1.20 [facility] Comment: Interpretive data Oral anticoagulant therapeutic ranges: Venous thromboembolism prophylaxis or treatment: 2.0-3.0 CARDIOLOGY Standard range: 2.0-3.0 High-intensity range: 2.5-3.5 Refer to indication-specific guidelines for appropriate target ranges for prosthetic heart valve replacement. Current interpretive data was last revised on 2019. Blood 11/16/2024 9:38 PM CDT 11/16/2024 10:38 PM CDT Lee Elena MD LAB BLOOD ORDERABLES Krystyna l Result Performing Organization Address [facility] Co de Phone Number [facility] Department [place] [address] * Phosphorus (11/16/2024 9:38 PM CDT) Pathologist [facility] Phosphorus, pl 4.1 2.3 - 4.5 mg/dL Blood 11/16/2024 9:38 PM CDT 11/16/2024 10:37 PM CDT Lee Elena MD LAB BLOOD ORDERABLES Krystyna l Result Performing Organization Address [facility] de Phone Number [facility] Department [place] [address] * Magnesium (11/16/2024 9:38 PM CDT) Pathologist [facility] Magnesium 1.5 1.4 - 2.5 mg/dL Blood 11/16/2024 9:38 PM CDT 11/16/2024 10:37 PM CDT Lee Elena MD LAB BLOOD ORDERABLES Krystyna l Result Performing Organization Address [facility] Co de Phone Number [facility] Department [place] [address] * (ABNORMAL) Hepatic function panel (11/16/2024 9:38 PM CDT) [facility] Bilirubin, total 0.6 0.1 - 1.2 mg/dL Bilirubin, direct 0.4(H) 0.1 - 0.3 mg/dL [facility] Protein, pl 5.7(L) 6.5 - 8.5 g/dL [facility] Albumin 2.0(L) 3.5 - 5.0 g/dL [facility] Alk phos 201(H) 40 - 130 Units/L [facility] ALT 21 7 - 45 Units/L [facility] AST 68(H) 10 - 45 Units/L [facility] Blood 11/16/2024 9:38 PM CDT 11/16/2024 10:37 PM CDT Lee Elena MD LAB BLOOD ORDERABLES Krystyna meyers Result [facility] Department [place] [address] * (ABNORMAL) Basic metabolic panel (11/16/2024 9:38 PM CDT) [facility] Sodium 141 135 - 145 mmol/L Potassium, pl 4.2 3.3 - 4.9 mmol/L [facility] Chloride 103 97 - 110 mmol/L [facility] CO2 29 22 - 32 mmol/L [facility] Anion gap 9 2 - 15 mmol/L [facility] BUN 9 6 - 25 mg/dL [facility] Creatinine 0.48(L) 0.60 - 1.10 mg/dL [facility] Glucose 90 70 - 199 mg/dL [facility] Comment: Interpretive Data Fasting glucose >/= 126 [...] Calcium 8.8 8.5 - 10.3 mg/dL [facility] Blood 11/16/2024 9:38 PM CDT 11/16/2024 10:37 PM CDT us Lee Elena MD LAB BLOOD ORDERABLES Krystyna l Result [facility] Department [place] [address] * Blood culture Blood (11/16/2024 9:28 PM CDT) Report Final Report: No growth Blood 11/16/2024 9:28 PM CDT 11/16/2024 10:38 PM CDT N[facility]ative [facility] - 11/21/2024 7:00 AM CDT Collection->Peripheral 1. [...] performance characteristics have been verified by the [facility]. For questions about this culture, contact the Microbiology Laboratory at [phone]. Interpretive data was last revised on 24. Lee Elena MD LAB MICROBIOLOGY - GENERA L ORDERABLES Final Result Performing Organization Address [facility] Co de Phone Number [facility] [place] [address] * POCT glucose (11/16/2024 8:10 PM CDT) Glucose, POC 124 70 - 199 mg/dL Blood 11/16/2024 8:10 PM CDT 11/16/2024 8:10 PM CDT Lee Elena MD LAB POCT ORDERABLES - DEV ICE Final Result Performing Organization Address [facility] de Phone Number [facility] [place] [address] * POCT glucose (11/16/2024 6:32 PM CDT) Glucose, POC 104 70 - 199 mg/dL Blood 11/16/2024 6:3 2 PM CDT 11/16/2024 6:32 PM CDT Lee Elena MD LAB POCT ORDERABLES - DEV ICE Final Result Performing Organization Address [facility] [place] [address] * Radiology Event (11/16/2024 5:53 PM CDT) [...] [facility] It was reported that when the patient [...] physical exam and patient education. Procedure Note Ochoa Liriano, DO - 11/16/2024 EXAMINATION: General Radiology Event Report DATE of EVENT:11/16/2024 11:11 PM I was asked to see HAYLEY LEÓN regarding a fall. Event: This was a witnessed Fall It was reported to me that the patient fell during a transfer from one wheelchair to another wheelchair while in the radiology department on the 5th floor [facility] It was reported that when the patient [...] mapping at the mid: normal less than 3125-5224 ms. T2 mapping at the mid: normal [...] mapping at the mid: normal less than 6172-8680 ms. T2 mapping at the mid: normal [...] it. Electronically signed by: Thang Castro M.D. us Lee Elena MD IMG MRI PROCEDURES Final Result * (ABNORMAL) Hemoglobin and hematocrit (11/16/2024 11:59 AM CDT) Pathologist [facility] Hgb 10.2(L) 11.9 - 15.5 g/dL Comment:Hemoglobin delta due to apparent blood transfusion. Hct 30.3(L) 35.6 - 45.5 % [facility] Blood 11/16/2024 11:5 9 AM CDT 11/16/2024 12:47 PM CDT Oracio Cody MD LAB BLOOD ORDERABLES Final Result [facility] Department [place] [address] * eGFR (11/16/2024 11:58 AM CDT) [facility] eGFR >90 >=60 mL/min/1. 73 m2 Comment: [...] ORDERABLES Krystyna l Result Performing Organization Address [facility] Co de Phone Number [facility] [place] [address] * Calcium, ionized (11/16/2024 11:58 AM CDT) Calcium, Ionized 4.68 4.50 - 5.10 mg/dL Blood 11/16/2024 11:5 8 AM CDT 11/16/2024 12:39 PM CDT Lee Elena MD LAB BLOOD ORDERABLES Krystyna l Result Performing Organization Address [facility] Co de Phone Number [facility] [place] [address] * Phosphorus (11/16/2024 11:58 AM CDT) Phosphorus, pl 4.3 2.3 - 4.5 mg/dL Blood 11/16/2024 11:5 8 AM CDT 11/16/2024 12:47 PM CDT Lee Elena MD LAB BLOOD ORDERABLES Krystyna l Result Performing Organization Address City/[facility] Co de Phone Number [facility] Department [place] [address] * Magnesium (11/16/2024 11:58 AM CDT) [facility] Magnesium 1.6 1.4 - 2.5 mg/dL Blood 11/16/2024 11:5 8 AM CDT 11/16/2024 12:47 PM CDT Lee Elena MD LAB BLOOD ORDERABLES Krystyna l Result Performing Organization Address [facility] Co de Phone Number [facility] [place] [address] * (ABNORMAL) Basic metabolic panel (11/16/2024 11:58 AM CDT) [facility] Sodium 140 135 - 145 mmol/L Potassium, pl 4.2 3.3 - 4.9 mmol/L [facility] Chloride 104 97 - 110 mmol/L [facility] CO2 30 22 - 32 mmol/L [facility] Anion gap 6 2 - 15 mmol/L [facility] BUN 9 6 - 25 mg/dL [facility] Creatinine 0.44(L) 0.60 - 1.10 mg/dL [facility] Glucose 101 70 - 199 mg/dL [facility] Comment: Interpretive Data Fasting glucose >/= 126 [...] 2022. Calcium 8.6 8.5 - 10.3 mg/dL [facility] Blood 11/16/2024 11:5 8 AM CDT 11/16/2024 12:47 PM CDT Lee Elena MD LAB BLOOD ORDERABLES Krystyna l Result Performing Organization Address [facility] de Phone Number [facility] [place] [address] * (ABNORMAL) POCT glucose (11/16/2024 11:43 AM CDT) [facility] Glucose, POC 250(H) 70 - 199 mg/dL Comment:Glu2: RN/MD Notified Glucose comment 1 Glu2: RN/MD Notified [facility] Blood 11/16/2024 11:4 3 AM CDT 11/16/2024 11:43 AM CDT Lee Elena MD LAB POCT ORDERABLES - DEV ICE Final Result Performing Organization Address [facility] de Phone Number [facility] Department [place] [address] * POCT glucose (11/16/2024 7:55 AM CDT) [facility] Glucose, POC 98 70 - 199 mg/dL Blood 11/16/2024 7:55 AM CDT 11/16/2024 7:55 AM CDT Lee Elena MD LAB POCT ORDERABLES - DEV ICE Final Result Performing Organization Address [facility] de Phone Number [facility] [place] [address] * ECG 12 lead (11/16/2024 7:09 AM CDT) [facility] Ventricular Rate EKG/Min 84 BPM [facility] Atrial Rate 84 BPM [facility] GA-Interval (MSEC) 126 ms [facility] QRS-Interval (MSEC) 66 ms [facility] QT-Interval (MSEC) 410 ms [facility] QTc 484 ms [facility] P [place] 19 degrees [facility] R [place] 41 degrees [facility] T [place] 92 degrees [facility] Diagnosis Normal sinus rhythm Nonspecific T wave abnormality Prolonged QT Abnormal ECG Confirmed by Gustabo Mcdaniels MD ([id number]) on 11/16/2024 8:39:02 AM [facility] 11/16/2024 7:09 AM CDT 11/16/2024 8:39 AM CDT Lee Elena MD ECG ORDERABLES Final Res ult Performing Organization Address [facility] Co de Phone Number [facility] * Transfuse RBC (11/16/2024 6:22 AM CDT) Blood Lee Elena MD BLOOD TRANSFUSION ORDERAB LES Final Result Performing Organization Address [facility] Co de Phone Number [facility] Department [place] [address] * POCT glucose (11/16/2024 4:21 AM CDT) Glucose, POC 119 70 - 199 mg/dL Blood 11/16/2024 4:21 AM CDT 11/16/2024 4:21 AM CDT Lee Elena MD LAB POCT ORDERABLES - DEV ICE Final Result Performing Organization Address [facility] de Phone Number [facility] Department [place] [address] * Type and screen (11/16/2024 1:45 AM CDT) Zach, indirect Negative ABO Rh A Positive [facility] Blood 11/16/2024 1:45 AM CDT 11/16/2024 2:04 AM CDT Narrative [facility] - 11/16/2024 2:58 AM CDT Has the patient had Daratumumab or Isatuximab in the past 6 months?->Unknown Lee Elena MD LAB BLOOD BANK TEST ORDER ALINE Final Result Performing Organization Address [facility] Co de Phone Number [facility] [place] [address] * POCT glucose (11/16/2024 12:24 AM CDT) [facility] Glucose, POC 107 70 - 199 mg/dL Blood 11/16/2024 12:2 4 AM CDT 11/16/2024 12:24 AM CDT Lee Elena MD LAB POCT ORDERABLES - DEV ICE Final Result Performing Organization Address [facility] [place] [address] * Prepare RBC: 1 Units (11/15/2024 10:35 PM CDT) [facility] Product code [id number] Unit Number [id number] U [facility] Product Blood Type APOS [facility] Dispense Status PRESUMED TRANSFUSED [facility] Blood 11/15/2024 10:3 5 PM CDT 11/15/2024 10:34 PM CDT Narrative [facility] - 11/16/2024 4:01 PM CDT Are special requirements needed? (All products are leukoreduced and CMV- safe)- >No Date required:-[id number] LRRBC # of Atabq-2-Alhcp Reasons:-Hgb <7 g/dL} Lee Elena MD BLOOD BANK PRODUCT ORDERA BLES Final Result Performing Organization Address [facility] Co de Phone Number [facility] [place] [address] * eGFR (11/15/2024 8:16 PM CDT) [facility] eGFR >90 >=60 mL/min/1. 73 m2 Comment: [...] MD LAB BLOOD ORDERABLES Krystyna meyers Result [facility] [place] [address] * (ABNORMAL) Differential, auto (11/15/2024 8:16 PM CDT) [facility] Neutrophil abs 2.95 1.50 - 6.50 K/cumm Imm gran abs 0.11(H) 0.00 - 0.10 K/cumm [facility] Lymphocyte abs 2.04 0.80 - 3.30 K/cumm [facility] Monocyte abs 0.49 0.20 - 0.80 K/cumm [facility] Eosinophil abs 0.10 0.00 - 0.50 K/cumm [facility] Basophil abs 0.02 0.00 - 0.10 K/cumm [facility] Neutrophil pct 51.6 % [facility] Comment: Interpretive Data Percent cell count reference ranges are not reported, since discordance with absolute values may lead to misinterpretation of CBC data. Current Interpretive Data was last revised on 2017. Imm gran pct 1.9 % [facility] Comment: Interpretive Data Percent cell count reference ranges are not reported, since discordance with absolute values may lead to misinterpretation of CBC data. Current Interpretive Data was last revised on 2017. Lymphocyte pct 35.7 % [facility] Comment: Interpretive Data Percent cell count reference ranges are not reported, since discordance with absolute values may lead to misinterpretation of CBC data. Current Interpretive Data was last revised on 2017. Monocyte pct 8.6 % [facility] Comment: Interpretive Data Percent cell count reference ranges are not reported, since discordance with absolute values may lead to misinterpretation of CBC data. Current Interpretive Data was last revised on 2017. Eosinophil pct 1.8 % [facility] Comment: Interpretive Data Percent cell count reference ranges are not reported, since discordance with absolute values may lead to misinterpretation of CBC data. Current Interpretive Data was last revised on 2017. Basophil pct 0.4 % [facility] Comment: Interpretive Data Percent cell count reference ranges are not reported, since discordance with absolute values may lead to misinterpretation of CBC data. Current Interpretive Data was last revised on 2017. Blood 11/15/2024 8:16 PM CDT 11/15/2024 9:37 PM CDT us Lee Elena MD LAB BLOOD ORDERABLES Krystyna meyers Result [facility] Department [place] [address] * (ABNORMAL) CBC with auto differential (11/15/2024 8:16 PM CDT) WBC 5.71 3.80 - 9.90 K/cumm Hgb 6.9(L) 11.9 - 15.5 g/dL [facility] Hct 20.7(L) 35.6 - 45.5 % [facility] Plt 592(H) 150 - 400 K/cumm [facility] MPV 11.0 9.1 - 12.3 fL [facility] RBC 2.05(L) 3.90 - 5.20 M/cumm [facility] MCV 101.0(H) 81.3 - 96.4 fL [facility] MCH 33.7(H) 27.1 - 33.3 pg [facility] MCHC 33.3 32.3 - 35.7 g/dL [facility] RDW CV 21.6(H) 11.1 - 14.9 % [facility] RDW SD 77.4(H) 35.7 - 48.1 fL [facility] NRBC abs 0.00 0.00 - 0.01 K/cumm [facility] Blood 11/15/2024 8:16 PM CDT 11/15/2024 9:37 PM CDT Lee Elena MD LAB BLOOD ORDERABLES Krystyna meyers Result [facility] [place] [address] * Blood culture Blood (11/15/2024 8:16 PM CDT) Report Final Report: No growth Blood 11/15/2024 8:16 PM CDT 11/15/2024 9:44 PM CDT Narrative [facility] - 11/20/2024 7:00 AM CDT Collection->Peripheral 1. [...] performance characteristics have been verified by the [facility] Microbiology Laboratory. For questions about this culture, contact the Microbiology Laboratory at [phone]. Interpretive data was last revised on 24. Lee Elena MD LAB MICROBIOLOGY - GENERA L ORDERABLES Final Result Performing Organization Address [facility] de Phone Number [facility] [place] [address] * Protime-INR (11/15/2024 8:16 PM CDT) PT 10.7 9.7 - 13.0 sec INR 0.99 0.90 - 1.20 [facility] Comment: Interpretive data Oral anticoagulant therapeutic ranges: Venous thromboembolism prophylaxis or treatment: 2.0-3.0 CARDIOLOGY Standard range: 2.0-3.0 High-intensity range: 2.5-3.5 Refer to indication-specific guidelines for appropriate target ranges for prosthetic heart valve replacement. Current interpretive data was last revised on 2019. Blood 11/15/2024 8:16 PM CDT 11/15/2024 9:39 PM CDT Lee Elena MD LAB BLOOD ORDERABLES Krystyna l Result Performing Organization Address [facility] de Phone Number [facility] [place] [address] * Phosphorus (11/15/2024 8:16 PM CDT) Phosphorus, pl 4.0 2.3 - 4.5 mg/dL Blood 11/15/2024 8:16 PM CDT 11/15/2024 9:36 PM CDT us Lee Elena MD LAB BLOOD ORDERABLES Krystyna l Result [facility] [place] [address] * Magnesium (11/15/2024 8:16 PM CDT) [facility] Magnesium 1.6 1.4 - 2.5 mg/dL Blood 11/15/2024 8:16 PM CDT 11/15/2024 9:36 PM CDT Lee Elena MD LAB BLOOD ORDERABLES Krystyna l Result Performing Organization Address [facility] Co de Phone Number [facility] [place] [address] * (ABNORMAL) Hepatic function panel (11/15/2024 8:16 PM CDT) [facility] Bilirubin, total 0.5 0.1 - 1.2 mg/dL Bilirubin, direct 0.4(H) 0.1 - 0.3 mg/dL [facility] Protein, pl 4.8(L) 6.5 - 8.5 g/dL [facility] Albumin 2.1(L) 3.5 - 5.0 g/dL [facility] Alk phos 171(H) 40 - 130 Units/L [facility] ALT 11 7 - 45 Units/L [facility] AST 39 10 - 45 Units/L [facility] Blood 11/15/2024 8:16 PM CDT 11/15/2024 9:36 PM CDT Lee Elena MD LAB BLOOD ORDERABLES Krystyna l Result Performing Organization Address City/[facility]/ZIP Co de Phone Number [facility] [place] [address] * (ABNORMAL) Basic metabolic panel (11/15/2024 8:16 PM CDT) Sodium 141 135 - 145 mmol/L Potassium, pl 4.0 3.3 - 4.9 mmol/L [facility] Chloride 105 97 - 110 mmol/L [facility] CO2 29 22 - 32 mmol/L [facility] Anion gap 7 2 - 15 mmol/L [facility] BUN 7 6 - 25 mg/dL [facility] Creatinine 0.46(L) 0.60 - 1.10 mg/dL [facility] Glucose 95 70 - 199 mg/dL [facility] Comment: Interpretive Data Fasting glucose >/= 126 [...] 2022. Calcium 7.7(L) 8.5 - 10.3 mg/dL [facility] Blood 11/15/2024 8:16 PM CDT 11/15/2024 9:36 PM CDT Lee Elena MD LAB BLOOD ORDERABLES Krystyna l Result Performing Organization Address City/[facility]/ZIP Co de Phone Number [facility] [place] [address] * POCT glucose (11/15/2024 7:40 PM CDT) Glucose, POC 117 70 - 199 mg/dL Blood 11/15/2024 7:40 PM CDT 11/15/2024 7:40 PM CDT Lee Elena MD LAB POCT ORDERABLES - DEV ICE Final Result Performing Organization Address [facility]/ZIP Co de Phone Number [facility] Department [place] [address] * POCT glucose (11/15/2024 5:11 PM CDT) Glucose, POC 100 70 - 199 mg/dL Blood 11/15/2024 5:11 PM CDT 11/15/2024 5:11 PM CDT Lee Elena MD LAB POCT ORDERABLES - [place] [address] * POCT glucose (11/15/2024 11:19 AM CDT) Glucose, POC 127 70 - 199 mg/dL Blood 11/15/2024 11:1 9 AM CDT 11/15/2024 11:19 AM CDT Lee Elena MD LAB POCT ORDERABLES - [place] [address] * POCT glucose (11/15/2024 8:44 AM CDT) Glucose, POC 106 70 - 199 mg/dL Blood 11/15/2024 8:44 AM CDT 11/15/2024 8:44 AM CDT Lee Elena MD LAB POCT ORDERABLES - [place] [address] * POCT glucose (11/15/2024 4:01 AM CDT) Glucose, POC 102 70 - 199 mg/dL Blood 11/15/2024 4:01 AM CDT 11/15/2024 4:01 AM CDT Lee Elena MD LAB POCT ORDERABLES - DEV ICE Final Result Performing Organization Address City/[facility] Co de Phone Number [facility] [place] [address] * POCT glucose (11/15/2024 12:15 AM CDT) Glucose, POC 110 70 - 199 mg/dL Blood 11/15/2024 12:1 5 AM CDT 11/15/2024 12:15 AM CDT Lee Elena MD LAB POCT ORDERABLES - DEV ICE Final Result Performing Organization Address [facility] de Phone Number [facility] Department [place] [address] * ECG 12 lead (11/14/2024 10:27 PM CDT) Ventricular Rate EKG/Min 103 BPM [facility] Atrial Rate 103 BPM [facility] GA-Interval (MSEC) 124 ms [facility] QRS-Interval (MSEC) 70 ms [facility] QT-Interval (MSEC) 380 ms [facility] QTc 497 ms [facility] P [place] 23 degrees [facility] R [place] 21 degrees [facility] T [place] 113 degrees [facility] Diagnosis Sinus tachycardia Nonspecific T wave abnormality Abnormal ECG Confirmed by Gustabo Mcdaniels MD ([id number]) on 11/15/2024 4:29:22 PM [facility] 11/14/2024 10:2 7 PM CDT 11/15/2024 4:29 PM CDT Lee Elena MD ECG ORDERABLES Final Res ult Performing Organization Address City/[facility] Co de Phone Number [facility] * N. gonorrhoeae/C. trachomatis Amplification Urine (11/14/2024 10:01 PM CDT) C. trachomatis Not Detected Not Detected [facility] N. gonorrhoeae Not Detected Not Detected [facility] Comment: Interpretive Data This assay detects Chlamydia trachomatis and Neisseria gonorrhoeae by nucleic acid amplification testing (NAAT). This assay has been cleared by the [place] Food and Drug administration. The performance characteristics of this test have been verified by the [facility] Molecular Infectious Disease laboratory. The performance characteristics of this test have not been evaluated in individuals less than 14 years of age. Current Interpretive Data last revised 2023. Urine (None) 11/14/2024 10:0 1 PM CDT 11/15/2024 3:36 AM CDT us Lee Elena MD LAB MICROBIOLOGY - GENERA L ORDERABLES Final Result [facility] Department [place] [address] [facility] * eGFR (11/14/2024 9:16 PM CDT) eGFR >90 >=60 mL/min/1. 73 [...] MD LAB BLOOD ORDERABLES Krystyna mira Result [facility] Department [place] [address] * (ABNORMAL) Differential, auto (11/14/2024 9:16 PM CDT) Pathologist [facility] Neutrophil abs 4.79 1.50 - 6.50 K/cumm Imm gran abs 0.18(H) 0.00 - 0.10 K/cumm [facility] Lymphocyte abs 2.09 0.80 - 3.30 K/cumm [facility] Monocyte abs 0.68 0.20 - 0.80 K/cumm [facility] Eosinophil abs 0.10 0.00 - 0.50 K/cumm [facility] Basophil abs 0.05 0.00 - 0.10 K/cumm [facility] Neutrophil pct 60.7 % [facility] Comment: Interpretive Data Percent cell count reference ranges are not reported, since discordance with absolute values may lead to misinterpretation of CBC data. Current Interpretive Data was last revised on 2017. Imm gran pct 2.3 % [facility] Comment: Interpretive Data Percent cell count reference ranges are not reported, since discordance with absolute values may lead to misinterpretation of CBC data. Current Interpretive Data was last revised on 2017. Lymphocyte pct 26.5 % [facility] Comment: Interpretive Data Percent cell count reference ranges are not reported, since discordance with absolute values may lead to misinterpretation of CBC data. Current Interpretive Data was last revised on 2017. Monocyte pct 8.6 % [facility] Comment: Interpretive Data Percent cell count reference ranges are not reported, since discordance with absolute values may lead to misinterpretation of CBC data. Current Interpretive Data was last revised on 2017. Eosinophil pct 1.3 % [facility] Comment: Interpretive Data Percent cell count reference ranges are not reported, since discordance with absolute values may lead to misinterpretation of CBC data. Current Interpretive Data was last revised on 2017. Basophil pct 0.6 % [facility] Comment: Interpretive Data Percent cell count reference ranges are not reported, since discordance with absolute values may lead to misinterpretation of CBC data. Current Interpretive Data was last revised on 2017. Blood 11/14/2024 9:16 PM CDT 11/14/2024 10:29 PM CDT us Lee Elena MD LAB BLOOD ORDERABLES Krystyna meyers Result [facility] Department [place] [address] * (ABNORMAL) CBC with auto differential (11/14/2024 9:16 PM CDT) WBC 7.89 3.80 - 9.90 K/cumm Hgb 7.4(L) 11.9 - 15.5 g/dL [facility] Hct 22.1(L) 35.6 - 45.5 % [facility] Plt 501(H) 150 - 400 K/cumm [facility] MPV 11.5 9.1 - 12.3 fL [facility] RBC 2.25(L) 3.90 - 5.20 M/cumm [facility] MCV 98.2(H) 81.3 - 96.4 fL [facility] MCH 32.9 27.1 - 33.3 pg [facility] MCHC 33.5 32.3 - 35.7 g/dL [facility] RDW CV 21.2(H) 11.1 - 14.9 % [facility] RDW SD 74.3(H) 35.7 - 48.1 fL [facility] NRBC abs 0.00 0.00 - 0.01 K/cumm [facility] Blood 11/14/2024 9:16 PM CDT 11/14/2024 10:29 PM CDT Lee Elena MD LAB BLOOD ORDERABLES Krystyna l Result Performing Organization Address City/[facility]/ZIP Co de Phone Number [facility] Department [place] [address] * Blood culture Blood (11/14/2024 9:16 PM CDT) Report Final Report: No growth Blood 11/14/2024 9:16 PM CDT 11/14/2024 10:47 PM CDT Tabitha BACK - 11/19/2024 7:00 AM CDT From a [...] performance characteristics have been verified by the [facility]biology Laboratory. For questions about this culture, contact the Microbiology Laboratory at [phone]. Interpretive data was last revised on 24. Lee Elena MD LAB MICROBIOLOGY - GENERA L ORDERABLES Final Result [facility] Department [place] [address] * (ABNORMAL) Blood culture Blood (11/14/2024 9:16 PM CDT) Direct Specimen Exam Stain: Gram Positive Cocci in clusters Time to culture positivity (anaerobic media): 58.1 hours Notification of: Gram Positive Cocci in clusters called to and read back by: Ash Valencia M.D. [id number] on 11/17/2024 10:04:19 by: Nani Bueno MLS Report Final Report: Staphylococcus aureus For susceptibility results, refer to accession number [id number] on the blood culture from 11/14/2024 (.) [facility] Organism STAPHYLOCOCCUS AUREUS [facility] Blood 11/14/2024 9:16 PM CDT 11/14/2024 10:47 PM CDT Narrative [facility] - 11/20/2024 8:57 AM CDT Collection->Peripheral [...] performance characteristics have been verified by the [facility] Laboratory. For questions about this culture, contact the Microbiology Laboratory at [phone]. Interpretive data was last revised on 24. us Lee Elena MD LAB MICROBIOLOGY - GENERA L ORDERABLES Final Result [facility] Department [place] [address] * Protime-INR (11/14/2024 9:16 PM CDT) PT 12.1 9.7 - 13.0 sec INR 1.12 0.90 - 1.20 [facility] Comment: Interpretive data Oral anticoagulant therapeutic ranges: Venous thromboembolism prophylaxis or treatment: 2.0-3.0 CARDIOLOGY Standard range: 2.0-3.0 High-intensity range: 2.5-3.5 Refer to indication-specific guidelines for appropriate target ranges for prosthetic heart valve replacement. Current interpretive data was last revised on 2019. Blood 11/14/2024 9:16 PM CDT 11/14/2024 10:35 PM CDT Lee Elena MD LAB BLOOD ORDERABLES Krystyna l Result Performing Organization Address [facility] Co de Phone Number [facility] Department [place] [address] * Uric acid (11/14/2024 9:16 PM CDT) [facility] Uric acid 3.4 2.5 - 7.0 mg/dL Blood 11/14/2024 9:16 PM CDT 11/14/2024 10:34 PM CDT Lee Elena MD LAB BLOOD ORDERABLES Krystyna l Result Performing Organization Address [facility] de Phone Number [facility] Department [place] [address] * (ABNORMAL) Phosphorus (11/14/2024 9:16 PM CDT) Pathologist [facility] Phosphorus, pl 5.1(H) 2.3 - 4.5 mg/dL Blood 11/14/2024 9:16 PM CDT 11/14/2024 10:29 PM CDT Lee Elena MD LAB BLOOD ORDERABLES Krystyna l Result Performing Organization Address City/[facility] [place] [address] * Magnesium (11/14/2024 9:16 PM CDT) [facility] Magnesium 1.9 1.4 - 2.5 mg/dL Blood 11/14/2024 9:16 PM CDT 11/14/2024 10:29 PM CDT Lee Elena MD LAB BLOOD ORDERABLES Krystyna l Result Performing Organization Address [facility] [place] [address] * Folate (11/14/2024 9:16 PM CDT) [facility] Folic acid 16.4 >=5.0 ng/mL Blood 11/14/2024 9:16 PM CDT 11/14/2024 10:29 PM CDT Lee Elena MD LAB BLOOD ORDERABLES Krystyna l Result Performing Organization Address [facility]/[place]IP [place] [address] * (ABNORMAL) Vitamin B12 (11/14/2024 9:16 PM CDT) [facility] Vitamin B12 1,820(H) 230 - 1,250 pg/mL Blood 11/14/2024 9:16 PM CDT 11/14/2024 10:29 PM CDT Lee Elena MD LAB BLOOD ORDERABLES Krystyna l Result [facility] [place] [address] * (ABNORMAL) Hepatic function panel (11/14/2024 9:16 PM CDT) [facility] Bilirubin, total 0.6 0.1 - 1.2 mg/dL Bilirubin, direct 0.5(H) 0.1 - 0.3 mg/dL [facility] Protein, pl 4.7(L) 6.5 - 8.5 g/dL [facility] Albumin 2.0(L) 3.5 - 5.0 g/dL [facility] Alk phos 166(H) 40 - 130 Units/L [facility] ALT 10 7 - 45 Units/L [facility] AST 41 10 - 45 Units/L [facility] Blood 11/14/2024 9:16 PM CDT 11/14/2024 10:29 PM CDT us Lee Elena MD LAB BLOOD ORDERABLES Krystyna l Result [facility] Department [place] [address] * (ABNORMAL) Basic metabolic panel (11/14/2024 9:16 PM CDT) [facility] Sodium 139 135 - 145 mmol/L Potassium, pl 3.7 3.3 - 4.9 mmol/L [facility] Chloride 100 97 - 110 mmol/L [facility] CO2 27 22 - 32 mmol/L [facility] Anion gap 12 2 - 15 mmol/L [facility] BUN 5(L) 6 - 25 mg/dL [facility] Creatinine 0.48(L) 0.60 - 1.10 mg/dL [facility] Glucose 84 70 - 199 mg/dL [facility] Comment: Interpretive Data Fasting glucose >/= 126 [...] 2022. Calcium 7.7(L) 8.5 - 10.3 mg/dL [facility] Blood 11/14/2024 9:16 PM CDT 11/14/2024 10:29 PM CDT Lee Elena MD LAB BLOOD ORDERABLES Krystyna l Result Performing Organization Address City/[facility]/ZIP Co de Phone Number [facility] [place] [address] * POCT glucose (11/14/2024 7:37 PM CDT) Pathologist [facility] Glucose, POC 119 70 - 199 mg/dL Blood 11/14/2024 7:37 PM CDT 11/14/2024 7:37 PM CDT Lee Elena MD LAB POCT ORDERABLES - DEV ICE Final Result Performing Organization Address [facility] Co de Phone Number [facility] [place] [address] * POCT glucose (11/14/2024 4:07 PM CDT) Pathologist [facility] Glucose, POC 89 70 - 199 mg/dL Blood 11/14/2024 4:07 PM CDT 11/14/2024 4:07 PM CDT Lee Elena MD LAB POCT ORDERABLES - DEV ICE Final Result Performing Organization Address City/[facility] Co de Phone Number 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 Performing Physician: Performed by Aubrey Horvath and Julissa Mcgowan. MAXIMION probe placed by Zully Masterson. 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: Location: [id number] Order Provider: JULISSA MCGOWAN BMI: Ref Provider: [...] CV ECHO PROCEDURES Fin al Result * GA AN ELECTIVE ENDOTRACHEAL AIRWAY, GA AN PROCEDURE PLACEHOLDER (11/14/2024 1:56 PM CDT) Zully Mondragon CRNA - 11/14/2024 1:56 PM CDT Zully [...] with: silk tape Number of attempts: 1 us Rudy Licona MD ANESTHESIA ORDERABLE S Final Result * POCT glucose (11/14/2024 12:33 PM CDT) Glucose, POC 86 70 - 199 mg/dL Blood 11/14/2024 12:3 3 PM CDT 11/14/2024 12:33 PM CDT us Lee Elena MD LAB POCT ORDERABLES - DEV ICE Final Result Performing Organization Address [facility] Co de Phone Number [facility] [place] [address] * POCT glucose (11/14/2024 10:49 AM CDT) Glucose, POC 88 70 - 199 mg/dL Blood 11/14/2024 10:4 9 AM CDT 11/14/2024 10:49 AM CDT Lee Elena MD LAB POCT ORDERABLES - DEV ICE Final Result Performing Organization Address City/[facility] Co de Phone Number [facility] [place] [address] * POCT glucose (11/14/2024 7:36 AM CDT) Glucose, POC 94 70 - 199 mg/dL Blood 11/14/2024 7:36 AM CDT 11/14/2024 7:36 AM CDT Lee Elena MD LAB POCT ORDERABLES - DEV ICE Final Result Performing Organization Address City/[facility] Co de Phone Number [facility] [place] [address] * POCT glucose (11/14/2024 4:28 AM CDT) Glucose, POC 85 70 - 199 mg/dL Blood 11/14/2024 4:28 AM CDT 11/14/2024 4:28 AM CDT Lee Elena MD LAB POCT ORDERABLES - DEV ICE Final Result Performing Organization Address [facility] de Phone Number [facility] [place] [address] * (ABNORMAL) Blood culture Blood (11/14/2024 12:27 AM CDT) Pathologist [facility] Direct Specimen Exam Stain: Gram Positive Cocci in clusters Time to culture positivity (anaerobic media): 36.1 hours Report Final Report: Staphylococcus aureus For susceptibility results, refer to accession number [id number] on the blood culture from 11/14/2024 (.) [facility] Organism STAPHYLOCOCCUS AUREUS [facility] Blood 11/14/2024 12:2 7 AM CDT 11/14/2024 1:42 AM CDT Narrative [facility] - 11/19/2024 7:49 AM CDT From a [...] performance characteristics have been verified by the [facility]. For questions about this culture, contact the Microbiology Laboratory at [phone]. Interpretive data was last revised on 24. us Lee Elena MD LAB MICROBIOLOGY - GENERA L ORDERABLES Final Result [facility] Department [place] [address] * (ABNORMAL) Blood culture Blood (11/14/2024 12:16 AM CDT) Direct Specimen Exam Stain: Gram Positive Cocci in clusters Time to culture positivity (anaerobic media): 18.6 hours Time to culture positivity (aerobic media): 23.8 hours Direct Specimen Exam Molecular Analysis: Methicillin-suscep tible Staphylococcus aureus (MSSA) detected by the [facility] BCID-GP panel. This test does not exclude the possibility of a mixed bacterial infection. [facility] Report Final Report: Staphylococcus aureus Methicillin susceptible (MSSA) by penicillin binding protein 2a (PBP2a) testing. (.) [facility] Organism STAPHYLOCOCCUS AUREUS [facility] Blood 11/14/2024 12:1 6 AM CDT 11/14/2024 1:42 AM CDT Narrative [facility] - 11/17/2024 1:38 PM CDT Collection->Peripheral 1. [...] performance characteristics have been verified by the [facility]. For questions about this culture, contact the Microbiology Laboratory at [phone]. Interpretive data was last revised on 24. [...] L ORDERABLES Final Result Performing Organization Address City/[facility]/ZIP Co de Phone Number [facility] Department [place] [address] * POCT glucose (11/13/2024 11:28 PM CDT) [facility] Signature Glucose, POC 108 70 - 199 mg/dL Blood 11/13/2024 11:2 8 PM CDT 11/13/2024 11:28 PM CDT Lee Elena MD LAB POCT ORDERABLES - DEV ICE Final Result Performing Organization Address [facility] Co de Phone Number [facility] Department [place] [address] * eGFR (11/13/2024 9:44 PM CDT) Pathologist [facility] eGFR >90 >=60 mL/min/1. 73 m2 Comment: [...] MD LAB BLOOD ORDERABLES Krystyna meyers Result [facility] Department [place] [address] * (ABNORMAL) Differential, auto (11/13/2024 9:44 PM CDT) Pathologist [facility] Neutrophil abs 6.19 1.50 - 6.50 K/cumm Imm gran abs 0.35(H) 0.00 - 0.10 K/cumm [facility] Lymphocyte abs 2.02 0.80 - 3.30 K/cumm [facility] Monocyte abs 0.92(H) 0.20 - 0.80 K/cumm [facility] Eosinophil abs 0.08 0.00 - 0.50 K/cumm [facility] Basophil abs 0.05 0.00 - 0.10 K/cumm [facility] Neutrophil pct 64.5 % [facility] Comment: Interpretive Data Percent cell count reference ranges are not reported, since discordance with absolute values may lead to misinterpretation of CBC data. Current Interpretive Data was last revised on 2017. Imm gran pct 3.6 % [facility] Comment: Interpretive Data Percent cell count reference ranges are not reported, since discordance with absolute values may lead to misinterpretation of CBC data. Current Interpretive Data was last revised on 2017. Lymphocyte pct 21.0 % [facility] Comment: Interpretive Data Percent cell count reference ranges are not reported, since discordance with absolute values may lead to misinterpretation of CBC data. Current Interpretive Data was last revised on 2017. Monocyte pct 9.6 % [facility] Comment: Interpretive Data Percent cell count reference ranges are not reported, since discordance with absolute values may lead to misinterpretation of CBC data. Current Interpretive Data was last revised on 2017. Eosinophil pct 0.8 % [facility] Comment: Interpretive Data Percent cell count reference ranges are not reported, since discordance with absolute values may lead to misinterpretation of CBC data. Current Interpretive Data was last revised on 2017. Basophil pct 0.5 % [facility] Comment: Interpretive Data Percent cell count reference ranges are not reported, since discordance with absolute values may lead to misinterpretation of CBC data. Current Interpretive Data was last revised on 2017. Blood 11/13/2024 9:44 PM CDT 11/13/2024 10:32 PM CDT us Lee Elena MD LAB BLOOD ORDERABLES Krystyna l Result [facility] Department [place] [address] * (ABNORMAL) CBC with auto differential (11/13/2024 9:44 PM CDT) WBC 9.61 3.80 - 9.90 K/cumm Hgb 8.2(L) 11.9 - 15.5 g/dL [facility] Hct 23.7(L) 35.6 - 45.5 % [facility] Plt 363 150 - 400 K/cumm [facility] MPV 12.3 9.1 - 12.3 fL [facility] RBC 2.50(L) 3.90 - 5.20 M/cumm [facility] MCV 94.8 81.3 - 96.4 fL [facility] MCH 32.8 27.1 - 33.3 pg [facility] MCHC 34.6 32.3 - 35.7 g/dL [facility] RDW CV 19.8(H) 11.1 - 14.9 % [facility] RDW SD 65.3(H) 35.7 - 48.1 fL [facility] NRBC abs 0.00 0.00 - 0.01 K/cumm [facility] Blood 11/13/2024 9:44 PM CDT 11/13/2024 10:32 PM CDT Lee Elena MD LAB BLOOD ORDERABLES Krystyna meyers Result [facility] Department [place] [address] * (ABNORMAL) Protime-INR (11/13/2024 9:44 PM CDT) PT 13.9(H) 9.7 - 13.0 sec INR 1.28(H) 0.90 - 1.20 [facility] Comment: Interpretive data Oral anticoagulant therapeutic ranges: Venous thromboembolism prophylaxis or treatment: 2.0-3.0 CARDIOLOGY Standard range: 2.0-3.0 High-intensity range: 2.5-3.5 Refer to indication-specific guidelines for appropriate target ranges for prosthetic heart valve replacement. Current interpretive data was last revised on 2019. Blood 11/13/2024 9:44 PM CDT 11/13/2024 10:44 PM CDT Lee Elena MD LAB BLOOD ORDERABLES Krystyna l Result Performing Organization Address [facility] Co de Phone Number [facility] [place] [address] * (ABNORMAL) Reticulocyte Count (11/13/2024 9:44 PM CDT) Retics, absolute 97(H) 20 - 87 K/cumm Retics 3.9(H) 0.4 - 2.9 % [facility] Reticulocyte Hgb 38.0 30.5 - 38.0 pg [facility] Blood 11/13/2024 9:44 PM CDT 11/13/2024 10:40 PM CDT Lee Elena MD LAB BLOOD ORDERABLES Krystyna l Result Performing Organization Address [facility] de Phone Number [facility] [place] [address] * Phosphorus (11/13/2024 9:44 PM CDT) Pathologist [facility] Phosphorus, pl 2.5 2.3 - 4.5 mg/dL Blood 11/13/2024 9:44 PM CDT 11/13/2024 10:33 PM CDT Lee Elena MD LAB BLOOD ORDERABLES Krystyna l Result Performing Organization Address [facility] [place] [address] * Magnesium (11/13/2024 9:44 PM CDT) Pathologist [facility] Magnesium 1.9 1.4 - 2.5 mg/dL Blood 11/13/2024 9:44 PM CDT 11/13/2024 10:33 PM CDT Lee Elena MD LAB BLOOD ORDERABLES Krystyna l Result Performing Organization Address [facility] Co de Phone Number [facility] Department [place] [address] * (ABNORMAL) Hepatic function panel (11/13/2024 9:44 PM CDT) [facility] Bilirubin, total 0.6 0.1 - 1.2 mg/dL Bilirubin, direct 0.4(H) 0.1 - 0.3 mg/dL [facility] Protein, pl 4.8(L) 6.5 - 8.5 g/dL [facility] Albumin 1.8(L) 3.5 - 5.0 g/dL [facility] Alk phos 173(H) 40 - 130 Units/L [facility] ALT 15 7 - 45 Units/L [facility] AST 49(H) 10 - 45 Units/L [facility] Blood 11/13/2024 9:44 PM CDT 11/13/2024 10:33 PM CDT us Lee Elena MD LAB BLOOD ORDERABLES Krystyna l Result Performing Organization Address [facility] de Phone Number [facility] Department [place] [address] * (ABNORMAL) Basic metabolic panel (11/13/2024 9:44 PM CDT) [facility] Sodium 134(L) 135 - 145 mmol/L Potassium, pl 4.5 3.3 - 4.9 mmol/L [facility] Chloride 99 97 - 110 mmol/L [facility] CO2 27 22 - 32 mmol/L [facility] Anion gap 8 2 - 15 mmol/L [facility] BUN 5(L) 6 - 25 mg/dL [facility] Creatinine 0.41(L) 0.60 - 1.10 mg/dL [facility] Glucose 99 70 - 199 mg/dL [facility] Comment: Interpretive Data Fasting glucose >/= 126 [...] 2022. Calcium 7.7(L) 8.5 - 10.3 mg/dL [facility] Blood 11/13/2024 9:44 PM CDT 11/13/2024 10:33 PM CDT Lee Elena MD LAB BLOOD ORDERABLES Krystyna l Result Performing Organization Address City/[facility] Co de Phone Number [facility] [place] [address] * POCT glucose (11/13/2024 7:36 PM CDT) Glucose, POC 96 70 - 199 mg/dL Blood 11/13/2024 7:36 PM CDT 11/13/2024 7:36 PM CDT Lee Elena MD LAB POCT ORDERABLES - DEV ICE Final Result Performing Organization Address [facility] Co de Phone Number [facility] [place] [address] * POCT glucose (11/13/2024 5:07 PM CDT) Glucose, POC 94 70 - 199 mg/dL Blood 11/13/2024 5:07 PM CDT 11/13/2024 5:07 PM CDT Lee Elena MD LAB POCT ORDERABLES - DEV ICE Final Result Performing Organization Address [facility] Co de Phone Number [facility] [place] [address] * MRI Spine Thoracic and Lumbar W [...] it. Electronically signed by: Latrice Ellington M.D. Lee Elena MD IMG MRI PROCEDURES Final Result * POCT glucose (11/13/2024 11:41 AM CDT) Glucose, POC 113 70 - 199 mg/dL Blood 11/13/2024 11:4 1 AM CDT 11/13/2024 11:41 AM CDT Lee Elena MD LAB POCT ORDERABLES - DEV ICE Final Result Performing Organization Address [facility] Co de Phone Number [facility] [place] [address] * POCT glucose (11/13/2024 7:43 AM CDT) Glucose, POC 107 70 - 199 mg/dL Blood 11/13/2024 7:43 AM CDT 11/13/2024 7:43 AM CDT Lee Elena MD LAB POCT ORDERABLES - DEV ICE Final Result Performing Organization Address [facility] Co de Phone Number [facility] [place] [place] [address] * POCT glucose (11/13/2024 4:20 AM CDT) Glucose, POC 98 70 - 199 mg/dL Blood 11/13/2024 4:20 AM CDT 11/13/2024 4:20 AM CDT Lee Elena MD LAB POCT ORDERABLES - DEV ICE Final Result Performing Organization Address [facility] Co de Phone Number [facility] [place] [place] [address] * POCT glucose (11/13/2024 1:03 AM CDT) Glucose, POC 104 70 - 199 mg/dL Blood 11/13/2024 1:03 AM CDT 11/13/2024 1:03 AM CDT Lee Elena MD LAB POCT ORDERABLES - DEV ICE Final Result Performing Organization Address [facility]/ZIP Co de Phone Number [facility] [place] [address] * eGFR (11/12/2024 10:00 PM CDT) eGFR [...] ORDERABLES Krystyna l Result Performing Organization Address City/[facility]/ZIP Co de Phone Number [facility] [place] [address] * (ABNORMAL) Differential, auto (11/12/2024 10:00 PM CDT) Pathologist [facility] Neutrophil abs 7.33(H) 1.50 - 6.50 K/cumm Imm gran abs 0.41(H) 0.00 - 0.10 K/cumm [facility] Lymphocyte abs 1.98 0.80 - 3.30 K/cumm [facility] Monocyte abs 0.73 0.20 - 0.80 K/cumm [facility] Eosinophil abs 0.16 0.00 - 0.50 K/cumm [facility] Basophil abs 0.04 0.00 - 0.10 K/cumm [facility] Neutrophil pct 68.8 % [facility] Comment: Interpretive Data Percent cell count reference ranges are not reported, since discordance with absolute values may lead to misinterpretation of CBC data. Current Interpretive Data was last revised on 2017. Imm gran pct 3.8 % [facility] Comment: Interpretive Data Percent cell count reference ranges are not reported, since discordance with absolute values may lead to misinterpretation of CBC data. Current Interpretive Data was last revised on 2017. Lymphocyte pct 18.6 % [facility] Comment: Interpretive Data Percent cell count reference ranges are not reported, since discordance with absolute values may lead to misinterpretation of CBC data. Current Interpretive Data was last revised on 2017. Monocyte pct 6.9 % [facility] Comment: Interpretive Data Percent cell count reference ranges are not reported, since discordance with absolute values may lead to misinterpretation of CBC data. Current Interpretive Data was last revised on 2017. Eosinophil pct 1.5 % [facility] Comment: Interpretive Data Percent cell count reference ranges are not reported, since discordance with absolute values may lead to misinterpretation of CBC data. Current Interpretive Data was last revised on 2017. Basophil pct 0.4 % [facility] Comment: Interpretive Data Percent cell count reference ranges are not reported, since discordance with absolute values may lead to misinterpretation of CBC data. Current Interpretive Data was last revised on 2017. Blood 11/12/2024 10:0 0 PM CDT 11/13/2024 12:47 AM CDT Lee Elena MD LAB BLOOD ORDERABLES Krystyna l Result Performing Organization Address City/[facility] Co de Phone Number [facility] Department [place] [address] * (ABNORMAL) CBC with auto differential (11/12/2024 10:00 PM CDT) WBC 10.65(H) 3.80 - 9.90 K/cumm Hgb 9.4(L) 11.9 - 15.5 g/dL [facility] Hct 27.1(L) 35.6 - 45.5 % [facility] Plt 241 150 - 400 K/cumm [facility] MPV 12.4(H) 9.1 - 12.3 fL [facility] RBC 2.85(L) 3.90 - 5.20 M/cumm [facility] MCV 95.1 81.3 - 96.4 fL [facility] MCH 33.0 27.1 - 33.3 pg [facility] MCHC 34.7 32.3 - 35.7 g/dL [facility] RDW CV 19.0(H) 11.1 - 14.9 % [facility] RDW SD 65.0(H) 35.7 - 48.1 fL [facility] NRBC abs 0.00 0.00 - 0.01 K/cumm [facility] Blood 11/12/2024 10:0 0 PM CDT 11/13/2024 12:47 AM CDT us Lee Elena MD LAB BLOOD ORDERABLES Krystyna l Result Performing Organization Address City/[facility]/ZIP Co de Phone Number [facility] [place] [address] * (ABNORMAL) Blood culture Blood (11/12/2024 10:00 PM CDT) Direct Specimen Exam Stain: Gram Positive Cocci in clusters Time to culture positivity (aerobic media): 20.3 hours Time to culture positivity (anaerobic media): 3.3 days Report Final Report: Staphylococcus aureus For susceptibility results, refer to accession number [id number] on the blood culture from 11/09/2024 (.) [facility] Organism STAPHYLOCOCCUS AUREUS [facility] Blood 11/12/2024 10:0 0 PM CDT 11/13/2024 12:57 AM CDT Narrative [facility] - 11/19/2024 11:19 AM CDT Collection->Peripheral [...] performance characteristics have been verified by the [facility]. For questions about this culture, contact the Microbiology Laboratory at [phone]. Interpretive data was last revised on 24. us Lee Elena MD LAB MICROBIOLOGY - GENERA L ORDERABLES Final Result [facility] [place] [address] * Protime-INR (11/12/2024 10:00 PM CDT) PT 12.9 9.7 - 13.0 sec INR 1.19 0.90 - 1.20 [facility] Comment: Interpretive data Oral anticoagulant therapeutic [...] ORDERABLES Krystyna l Result Performing Organization Address City/State/[facility] Co de Phone Number [facility] [place] [address] * Phosphorus (11/12/2024 10:00 PM CDT) Phosphorus, pl 2.8 2.3 - 4.5 mg/dL Blood 11/12/2024 10:0 0 PM CDT 11/13/2024 12:47 AM CDT Lee Elena MD LAB BLOOD ORDERABLES Krystyna l Result Performing Organization Address City/[facility] Co de Phone Number [facility] [place] [address] * Magnesium (11/12/2024 10:00 PM CDT) Magnesium 1.6 1.4 - 2.5 mg/dL Blood 11/12/2024 10:0 0 PM CDT 11/13/2024 12:47 AM CDT Lee Elena MD LAB BLOOD ORDERABLES Krystyna l Result Performing Organization Address City/[facility] Co de Phone Number [facility] [place] [address] * (ABNORMAL) Hepatic function panel (11/12/2024 10:00 PM CDT) Bilirubin, total 0.9 0.1 - 1.2 mg/dL Bilirubin, direct 0.6(H) 0.1 - 0.3 mg/dL [facility] Protein, pl 5.0(L) 6.5 - 8.5 g/dL [facility] Albumin 1.9(L) 3.5 - 5.0 g/dL [facility] Alk phos 180(H) 40 - 130 Units/L [facility] ALT 23 7 - 45 Units/L [facility] AST 57(H) 10 - 45 Units/L [facility] Blood 11/12/2024 10:0 0 PM CDT 11/13/2024 12:47 AM CDT Lee Elena MD LAB BLOOD ORDERABLES Krystyna l Result [facility] Department [place] [address] * (ABNORMAL) Basic metabolic panel (11/12/2024 10:00 PM CDT) [facility] Sodium 135 135 - 145 mmol/L Potassium, pl 3.2(L) 3.3 - 4.9 mmol/L [facility] Chloride 98 97 - 110 mmol/L [facility] CO2 30 22 - 32 mmol/L [facility] Anion gap 7 2 - 15 mmol/L [facility] BUN 6 6 - 25 mg/dL [facility] Creatinine 0.43(L) 0.60 - 1.10 mg/dL [facility] Glucose 84 70 - 199 mg/dL [facility] Comment: Interpretive Data Fasting glucose >/= 126 [...] 2022. Calcium 8.1(L) 8.5 - 10.3 mg/dL [facility] Blood 11/12/2024 10:0 0 PM CDT 11/13/2024 12:47 AM CDT Lee Elena MD LAB BLOOD ORDERABLES Krystyna l Result Performing Organization Address [facility] de Phone Number [facility] [place] [address] * ECG 12 lead (11/12/2024 9:35 PM CDT) Ventricular Rate EKG/Min 93 BPM [facility] Atrial Rate 93 BPM [facility] GA-Interval (MSEC) 110 ms [facility] QRS-Interval (MSEC) 70 ms [facility] QT-Interval (MSEC) 396 ms [facility] QTc 492 ms [facility] P [place] 28 degrees [facility] R [place] 51 degrees [facility] T [place] 163 degrees [facility] Diagnosis Sinus rhythm with short [place] Low voltage QRS Possible Anterolateral infarct , age undetermined Abnormal ECG When compared with ECG of 09-NOV-2024 01:56, Significant changes have occurred Confirmed by Gustabo Mcdaniels MD ([id number]) on 11/14/2024 1:25:12 PM [facility] 11/12/2024 9:35 PM CDT 11/14/2024 1:25 PM CDT Lee Elena MD ECG ORDERABLES Final Res ult Performing Organization Address [facility]/ZIP Co de Phone Number [facility] * POCT glucose (11/12/2024 8:23 PM CDT) Glucose, POC 109 70 - 199 mg/dL Blood 11/12/2024 8:23 PM CDT 11/12/2024 8:23 PM CDT Lee Elena MD LAB POCT ORDERABLES - DEV ICE Final Result Performing Organization Address City/[facility]/ZIP Co de Phone Number [facility] [place] [address] * POCT glucose (11/12/2024 4:17 PM CDT) [facility] Glucose, POC 132 70 - 199 mg/dL Blood 11/12/2024 4:17 PM CDT 11/12/2024 4:17 PM CDT Lee Elena MD LAB POCT ORDERABLES - DEV ICE Final Result Performing Organization Address [facility] Co de Phone Number [facility] [place] [address] * MRSA Only (Staphylococcus aureus) Culture Nasal (11/12/2024 2:37 PM CDT) [facility] Report Final Report: Negative Nasal 11/12/2024 2:37 PM CDT 11/12/2024 3:35 PM CDT Narrative [facility] - 11/13/2024 6:40 PM CDT Testing performed by [facility] ([phone]). us Lee Elena MD LAB MICROBIOLOGY - GENERA L ORDERABLES Final Result Performing Organization Address [facility] Co de Phone Number [facility] Department [place] [address] * Respiratory pathogen panel Nasopharyngeal (11/12/2024 2:37 PM CDT) [facility] Influenza A RNA Not Detected Not Detected Influenza B RNA Not Detected Not Detected [facility] RSV RNA Not Detected Not Detected [facility] COVID-19 RNA Not Detected Not Detected [facility] Coronavirus 229E RNA Not Detected Not Detected [facility] Coronavirus HKU1 RNA Not Detected Not Detected [facility] Coronavirus NL63 RNA Not Detected Not Detected [facility] Coronavirus OC43 RNA Not Detected Not Detected [facility] Adenovirus DNA Not Detected Not Detected [facility] Metapneumovirus RNA Not Detected Not Detected [facility] Rhinovirus/Enterov irus RNA Not Detected Not Detected [facility] Parainfluenza 1 RNA Not Detected Not Detected [facility] Parainfluenza 2 RNA Not Detected Not Detected [facility] Parainfluenza 3 RNA Not Detected Not Detected [facility] Parainfluenza 4 RNA Not Detected Not Detected [facility] B. pertussis DNA Not Detected Not Detected [facility] B. parapertussis DNA Not Detected Not Detected [facility] C. pneumoniae DNA Not Detected Not Detected [facility] M. pneumoniae DNA Not Detected Not Detected [facility] Nasopharyngeal 11/12/2024 2: 37 PM CDT 11/12/2024 3:27 PM CDT Narrative [facility] - 11/12/2024 4:42 PM CDT Is the Patient experiencing symptoms consistent with COVID?->No Surveillance testing for transplant patient?->No Interpretive Data The Lydia FilmArray Respiratory Panel (RP2.1) assay is a [...] assay has FDA clearance for testing of PATROL INSPECTOR swabs. The performance of additional specimen types has been assessed by the performing laboratory. The performance characteristics of this assay have been determined by [facility] Disease [facility]. Current interpretive data was last revised on 22. Lee Elena MD LAB MICROBIOLOGY - GENERA L ORDERABLES Final Result [facility] Department [place] [address] * POCT glucose (11/12/2024 11:33 AM CDT) Glucose, POC 113 70 - 199 mg/dL Blood 11/12/2024 11:3 3 AM CDT 11/12/2024 11:33 AM CDT Lee Elena MD LAB POCT ORDERABLES - DEV ICE Final Result [facility] [place] [address] * XR Chest 1 View (11/12/2024 11:33 [...] and agrees with it. Electronically signed by: Fabina Sesay M.D. Lee Elena MD IMG XR [...] and lingual augmentation is present. Procedure Note Ochoa Liriano DO - 11/12/2024 EXAMINATION: XR ORTHOPANTOGRAM/PANOREX HISTORY: [...] 7:57 AM CDT 11/12/2024 7:57 AM CDT eLe Elena MD LAB POCT ORDERABLES - DEV ICE Final Result Performing Organization Address [facility] Co de Phone Number SHONA [facility] Department [place] [address] * POCT glucose (11/12/2024 4:06 AM CDT) Glucose, POC 113 70 - 199 mg/dL Blood 11/12/2024 4:06 AM CDT 11/12/2024 4:06 AM CDT Lee Elena MD LAB POCT ORDERABLES - DEV ICE Final Result Performing Organization Address [facility]/State/ZIP Co de Phone Number SHONA [facility] Department [place] [address] * POCT glucose (11/12/2024 12:16 AM CDT) Pathologist [facility] Glucose, POC 110 70 - 199 mg/dL Blood 11/12/2024 12:1 6 AM CDT 11/12/2024 12:16 AM CDT Lee Elena MD LAB POCT ORDERABLES - DEV ICE Final Result Performing Organization Address [facility] de Phone Number [facility] [place] [address] * eGFR (11/11/2024 10:12 PM CDT) [facility] eGFR >90 >=60 mL/min/1. 73 m2 Comment: [...] ORDERABLES Krystyna l Result Performing Organization Address City/[facility]/ZIP Co de Phone Number [facility] Department [place] [address] * (ABNORMAL) Differential, auto (11/11/2024 10:12 PM CDT) Neutrophil abs 9.51(H) 1.50 - 6.50 K/cumm Imm gran abs 0.27(H) 0.00 - 0.10 K/cumm [facility] Lymphocyte abs 2.15 0.80 - 3.30 K/cumm [facility] Monocyte abs 1.16(H) 0.20 - 0.80 K/cumm [facility] Eosinophil abs 0.10 0.00 - 0.50 [facility] Basophil abs 0.06 0.00 - 0.10 K/cumm [facility] Neutrophil pct 71.7 % [facility] Comment: Interpretive Data Percent cell count reference ranges are not reported, since discordance with absolute values may lead to misinterpretation of CBC data. Current Interpretive Data was last revised on 2017. Imm gran pct 2.0 % [facility] Comment: Interpretive Data Percent cell count reference ranges are not reported, since discordance with absolute values may lead to misinterpretation of CBC data. Current Interpretive Data was last revised on 2017. Lymphocyte pct 16.2 % [facility] Comment: Interpretive Data Percent cell count reference ranges are not reported, since discordance with absolute values may lead to misinterpretation of CBC data. Current Interpretive Data was last revised on 2017. Monocyte pct 8.8 % [facility] Comment: Interpretive Data Percent cell count reference ranges are not reported, since discordance with absolute values may lead to misinterpretation of CBC data. Current Interpretive Data was last revised on 2017. Eosinophil pct 0.8 % [facility] Comment: Interpretive Data Percent cell count reference ranges are not reported, since discordance with absolute values may lead to misinterpretation of CBC data. Current Interpretive Data was last revised on 2017. Basophil pct 0.5 % [facility] Comment: Interpretive Data Percent cell count reference ranges are not reported, since discordance with absolute values may lead to misinterpretation of CBC data. Current Interpretive Data was last revised on 2017. Blood 11/11/2024 10:1 2 PM CDT 11/11/2024 11:52 PM CDT Lee Elena MD LAB BLOOD ORDERABLES Krystyna l Result Performing Organization Address [facility] Co de Phone Number [facility] Department [place] [address] * (ABNORMAL) CBC with auto differential (11/11/2024 10:12 PM CDT) WBC 13.25(H) 3.80 - 9.90 K/cumm Hgb 10.3(L) 11.9 - 15.5 g/dL [facility] Hct 29.0(L) 35.6 - 45.5 % [facility] Plt 162 150 - 400 K/cumm [facility] MPV 12.7(H) 9.1 - 12.3 fL [facility] RBC 3.10(L) 3.90 - 5.20 M/cumm [facility] MCV 93.5 81.3 - 96.4 fL [facility] MCH 33.2 27.1 - 33.3 pg [facility] MCHC 35.5 32.3 - 35.7 g/dL [facility] RDW CV 19.4(H) 11.1 - 14.9 % [facility] RDW SD 65.6(H) 35.7 - 48.1 fL [facility] NRBC abs 0.02(H) 0.00 - 0.01 K/cumm [facility] Blood 11/11/2024 10:1 2 PM CDT 11/11/2024 11:52 PM CDT Lee Elena MD LAB BLOOD ORDERABLES Krystyna meyers Result Performing Organization Address [facility]/ZIP Co de Phone Number [facility] [place] [address] * (ABNORMAL) Blood culture Blood (11/11/2024 10:12 PM CDT) Direct Specimen Exam Stain: Gram Positive Cocci in clusters Time to culture positivity (aerobic media): 13.7 hours Time to culture positivity (anaerobic media): 21.0 hours Report Final Report: Staphylococcus aureus For susceptibility results, refer to accession number [id number] on the blood culture from 11/09/2024 (.) [facility] Organism STAPHYLOCOCCUS AUREUS [facility] Blood 11/11/2024 10:1 2 PM CDT 11/11/2024 11:40 PM CDT Narrative [facility] - 11/15/2024 10:39 AM CDT From [...] performance characteristics have been verified by the [facility]. For questions about this culture, contact the Microbiology Laboratory at [phone]. Interpretive data was last revised on 24. us Lee Elena MD LAB MICROBIOLOGY - GENERA L ORDERABLES Final Result [facility] Department [place] [address] * (ABNORMAL) Blood culture Blood (11/11/2024 10:12 PM CDT) Direct Specimen Exam Stain: Gram Positive Cocci in clusters Time to culture positivity (aerobic media): 17.0 hours Time to culture positivity (anaerobic media): 21.2 hours Report Final Report: Staphylococcus aureus For susceptibility results, refer to accession number [id number] on the blood culture from 11/09/2024 (.) [facility] Organism STAPHYLOCOCCUS AUREUS [facility] Blood 11/11/2024 10:1 2 PM CDT 11/11/2024 11:40 PM CDT Narrative [facility] - 11/15/2024 10:23 AM CDT Collection->Peripheral 1. [...] performance characteristics have been verified by the [facility]. For questions about this culture, contact the Microbiology Laboratory at [phone]. Interpretive data was last revised on 24. us Lee Elena MD LAB MICROBIOLOGY - GENERA L ORDERABLES Final Result [facility] [place] [address] * Protime-INR (11/11/2024 10:12 PM CDT) PT 12.3 9.7 - 13.0 sec INR 1.14 0.90 - 1.20 [facility] Comment: Interpretive data Oral anticoagulant therapeutic [...] ORDERABLES Krystyna l Result Performing Organization Address City/[facility] Co de Phone Number [facility] [place] [address] * (ABNORMAL) Phosphorus (11/11/2024 10:12 PM CDT) Phosphorus, pl 1.9(L) 2.3 - 4.5 mg/dL Blood 11/11/2024 10:1 2 PM CDT 11/11/2024 11:52 PM CDT Result [facility] Lee Elena MD LAB BLOOD ORDERABLES Krystyna l Result Performing Organization Address [facility] Co de Phone Number [facility] [place] [address] * Magnesium (11/11/2024 10:12 PM CDT) Magnesium 1.7 1.4 - 2.5 mg/dL Blood 11/11/2024 10:1 2 PM CDT 11/11/2024 11:52 PM CDT Lee Elena MD LAB BLOOD ORDERABLES Krystyna l Result Performing Organization Address [facility] Co de Phone Number [facility] [place] [address] * (ABNORMAL) Hepatic function panel (11/11/2024 10:12 PM CDT) [facility] Bilirubin, total 1.2 0.1 - 1.2 mg/dL Bilirubin, direct 0.6(H) 0.1 - 0.3 mg/dL [facility] Protein, pl 5.1(L) 6.5 - 8.5 g/dL [facility] Albumin 1.9(L) 3.5 - 5.0 g/dL [facility] Alk phos 200(H) 40 - 130 Units/L [facility] ALT 34 7 - 45 Units/L [facility] AST 70(H) 10 - 45 Units/L [facility] Blood 11/11/2024 10:1 2 PM CDT 11/11/2024 11:52 PM CDT Lee Elena MD LAB BLOOD ORDERABLES Krystyna l Result [facility] Department [place] [address] * (ABNORMAL) Basic metabolic panel (11/11/2024 10:12 PM CDT) [facility] Sodium 131(L) 135 - 145 mmol/L Potassium, pl 4.9 3.3 - 4.9 mmol/L [facility] Chloride 98 97 - 110 mmol/L [facility] CO2 23 22 - 32 mmol/L [facility] Anion gap 10 2 - 15 mmol/L [facility] BUN 6 6 - 25 mg/dL [facility] Creatinine 0.41(L) 0.60 - 1.10 mg/dL [facility] Glucose 78 70 - 199 mg/dL [facility] Comment: Interpretive Data Fasting glucose >/= 126 [...] 2022. Calcium 7.8(L) 8.5 - 10.3 mg/dL [facility] Blood 11/11/2024 10:1 2 PM CDT 11/11/2024 11:52 PM CDT Lee Elena MD LAB BLOOD ORDERABLES Krystyna l Result Performing Organization Address City/[facility]/[place] [address] * POCT glucose (11/11/2024 8:08 PM CDT) Glucose, POC 111 70 - 199 mg/dL Blood 11/11/2024 8:08 PM CDT 11/11/2024 8:08 PM CDT Lee Elena MD LAB POCT ORDERABLES - DEV ICE Final Result Performing Organization Address City/[facility]/ZIP Co de Phone Number [facility] [place] [address] * POCT glucose (11/11/2024 4:42 PM CDT) Glucose, POC 108 70 - 199 mg/dL Blood 11/11/2024 4:42 PM CDT 11/11/2024 4:42 PM CDT Lee Elena MD LAB POCT ORDERABLES - DEV ICE Final Result Performing Organization Address City/[facility] Co de Phone Number [facility] [place] [address] * POCT glucose (11/11/2024 12:11 PM CDT) Glucose, POC 115 70 - 199 mg/dL Blood 11/11/2024 12:1 1 PM CDT 11/11/2024 12:11 PM CDT Lee Elena MD LAB POCT ORDERABLES - DEV ICE Final Result Performing Organization Address [facility]/ZIP Co de Phone Number [facility] Department [place] [address] * eGFR (11/11/2024 10:41 AM CDT) [facility] eGFR >90 >=60 mL/min/1. 73 m2 Comment: [...] ORDERABLES Krystyna l Result Performing Organization Address City/[facility]/ZIP Co de Phone Number [facility] [place] [address] * Phosphorus (11/11/2024 10:41 AM CDT) Phosphorus, pl 2.3 2.3 - 4.5 mg/dL Blood 11/11/2024 10:4 1 AM CDT 11/11/2024 10:53 AM CDT Lee Elena MD LAB BLOOD ORDERABLES Krystyna l Result Performing Organization Address City/[facility]/ZIP Co de Phone Number [facility] Department [place] [address] * Magnesium (11/11/2024 10:41 AM CDT) [facility] Magnesium 1.6 1.4 - 2.5 mg/dL Blood 11/11/2024 10:4 1 AM CDT 11/11/2024 10:53 AM CDT Lee Elena MD LAB BLOOD ORDERABLES Krystyna l Result Performing Organization Address [facility] de Phone Number [facility] Department [place] [address] * (ABNORMAL) Basic metabolic panel (11/11/2024 10:41 AM CDT) [facility] Sodium 133(L) 135 - 145 mmol/L Potassium, pl 5.4(H) 3.3 - 4.9 mmol/L [facility] Comment:Hemolyzed; Potassium value may be falsely elevated by as much as 0.3-0.5 mmol/L. Suggest redraw and reanalysis. Chloride 104 97 - 110 mmol/L [facility] CO2 23 22 - 32 mmol/L [facility] Anion gap 6 2 - 15 mmol/L [facility] BUN 6 6 - 25 mg/dL [facility] Creatinine 0.37(L) 0.60 - 1.10 mg/dL [facility] Glucose 96 70 - 199 mg/dL [facility] Comment: Interpretive Data Fasting glucose >/= 126 [...] 2022. Calcium 7.7(L) 8.5 - 10.3 mg/dL [facility] Blood 11/11/2024 10:4 1 AM CDT 11/11/2024 10:53 AM CDT Lee Elena MD LAB BLOOD ORDERABLES Krystyna l Result Performing Organization Address City/[facility] Co de Phone Number [facility] [place] [address] * POCT glucose (11/11/2024 9:24 AM CDT) Glucose, POC 98 70 - 199 mg/dL Blood 11/11/2024 9:24 AM CDT 11/11/2024 9:24 AM CDT Lee Elena MD LAB POCT ORDERABLES - DEV ICE Final Result Performing Organization Address [facility] Co de Phone Number [facility] [place] [address] * POCT glucose (11/10/2024 11:50 PM CDT) Glucose, POC 124 70 - 199 mg/dL Blood 11/10/2024 11:5 0 PM CDT 11/10/2024 11:50 PM CDT Lee Elena MD LAB POCT ORDERABLES - DEV ICE Final Result Performing Organization Address [facility] Co de Phone Number [facility] [place] [address] * eGFR (11/10/2024 9:24 PM CDT) Pathologist [facility] eGFR >90 >=60 mL/min/1. 73 m2 Comment: [...] data was last reviewed 2021. Blood 11/10/2024 9:2 4 PM CDT 11/10/2024 11:00 PM CDT us Lee Elena MD LAB BLOOD ORDERABLES Krystyna meyers Result [facility] Department [place] [address] * (ABNORMAL) Differential, auto (11/10/2024 9:24 PM CDT) Pathologist [facility] Neutrophil abs 9.18(H) 1.50 - 6.50 K/cumm Imm gran abs 0.15(H) 0.00 - 0.10 K/cumm [facility] Lymphocyte abs 1.01 0.80 - 3.30 K/cumm [facility] Monocyte abs 0.84(H) 0.20 - 0.80 K/cumm [facility] Eosinophil abs 0.03 0.00 - 0.50 K/cumm [facility] Basophil abs 0.02 0.00 - 0.10 K/cumm [facility] Neutrophil pct 81.7 % [facility] Comment: Interpretive Data Percent cell count reference ranges are not reported, since discordance with absolute values may lead to misinterpretation of CBC data. Current Interpretive Data was last revised on 2017. Imm gran pct 1.3 % [facility] Comment: Interpretive Data Percent cell count reference ranges are not reported, since discordance with absolute values may lead to misinterpretation of CBC data. Current Interpretive Data was last revised on 2017. Lymphocyte pct 9.0 % [facility] Comment: Interpretive Data Percent cell count reference ranges are not reported, since discordance with absolute values may lead to misinterpretation of CBC data. Current Interpretive Data was last revised on 2017. Monocyte pct 7.5 % [facility] Comment: Interpretive Data Percent cell count reference ranges are not reported, since discordance with absolute values may lead to misinterpretation of CBC data. Current Interpretive Data was last revised on 2017. Eosinophil pct 0.3 % [facility] Comment: Interpretive Data Percent cell count reference ranges are not reported, since discordance with absolute values may lead to misinterpretation of CBC data. Current Interpretive Data was last revised on 2017. Basophil pct 0.2 % [facility] Comment: Interpretive Data Percent cell count reference ranges are not reported, since discordance with absolute values may lead to misinterpretation of CBC data. Current Interpretive Data was last revised on 2017. Blood 11/10/2024 9:24 PM CDT 11/10/2024 11:00 PM CDT us Lee Elena MD LAB BLOOD ORDERABLES Krystyna l Result [facility] Department [place] [address] * (ABNORMAL) CBC with auto differential (11/10/2024 9:24 PM CDT) WBC 11.23(H) 3.80 - 9.90 K/cumm Hgb 10.0(L) 11.9 - 15.5 g/dL [facility] Hct 29.3(L) 35.6 - 45.5 % [facility] Plt 129(L) 150 - 400 K/cumm [facility] Comment:No clot detected in sample. MPV 12.1 9.1 - 12.3 fL [facility] RBC 3.09(L) 3.90 - 5.20 M/cumm [facility] MCV 94.8 81.3 - 96.4 fL [facility] Comment:MCV delta due to [place] arent blood transfusion. MCH 32.4 27.1 - 33.3 pg [facility] MCHC 34.1 32.3 - 35.7 g/dL [facility] RDW CV 19.7(H) 11.1 - 14.9 % [facility] RDW SD 67.2(H) 35.7 - 48.1 fL [facility] NRBC abs 0.00 0.00 - 0.01 K/cumm [facility] Blood 11/10/2024 9:24 PM CDT 11/10/2024 11:00 PM CDT us Lee Elena MD LAB BLOOD ORDERABLES Krystyna l Result [facility] Department [place] [address] * Protime-INR (11/10/2024 9:24 PM CDT) PT 12.6 9.7 - 13.0 sec INR 1.16 0.90 - 1.20 [facility] Comment: Interpretive data Oral anticoagulant therapeutic ranges: Venous thromboembolism prophylaxis or treatment: 2.0-3.0 CARDIOLOGY Standard range: 2.0-3.0 High-intensity range: 2.5-3.5 Refer to indication-specific guidelines for appropriate target ranges for prosthetic heart valve replacement. Current interpretive data was last revised on 2019. Blood 11/10/2024 9:24 PM CDT 11/10/2024 11:05 PM CDT us Lee Elena MD LAB BLOOD ORDERABLES Krystyna l Result Performing Organization Address City/[facility] Co de Phone Number [facility] [place] [address] * (ABNORMAL) Phosphorus (11/10/2024 9:24 PM CDT) Pathologist [facility] Phosphorus, pl 2.1(L) 2.3 - 4.5 mg/dL Blood 11/10/2024 9:24 PM CDT 11/10/2024 11:00 PM CDT Lee Elena MD LAB BLOOD ORDERABLES Krystyna l Result Performing Organization Address [facility] Co de Phone Number [facility] [place] [address] * (ABNORMAL) Magnesium (11/10/2024 9:24 PM CDT) [facility] Magnesium 2.8(H) 1.4 - 2.5 mg/dL Blood 11/10/2024 9:24 PM CDT 11/10/2024 11:00 PM CDT Lee Elena MD LAB BLOOD ORDERABLES Krystyna l Result Performing Organization Address City/[facility] Co de Phone Number [facility] [place] [address] * (ABNORMAL) Hepatic function panel (11/10/2024 9:24 PM CDT) Bilirubin, total 1.2 0.1 - 1.2 mg/dL Bilirubin, direct 0.9(H) 0.1 - 0.3 mg/dL [facility] Protein, pl 4.9(L) 6.5 - 8.5 g/dL [facility] Albumin 1.8(L) 3.5 - 5.0 g/dL [facility] Alk phos 161(H) 40 - 130 Units/L [facility] ALT 72(H) 7 - 45 Units/L [facility] AST 100(H) 10 - 45 Units/L [facility] Blood 11/10/2024 9:24 PM CDT 11/10/2024 11:00 PM CDT Lee Elena MD LAB BLOOD ORDERABLES Krystyna l Result [facility] Department [place] [address] * (ABNORMAL) Basic metabolic panel (11/10/2024 9:24 PM CDT) Sodium 134(L) 135 - 145 mmol/L Potassium, pl 3.4 3.3 - 4.9 mmol/L [facility] Chloride 102 97 - 110 mmol/L [facility] CO2 22 22 - 32 mmol/L [facility] Anion gap 10 2 - 15 mmol/L [facility] BUN 5(L) 6 - 25 mg/dL [facility] Creatinine 0.35(L) 0.60 - 1.10 mg/dL [facility] Glucose 111 70 - 199 mg/dL [facility] Comment: Interpretive Data Fasting glucose >/= 126 [...] 2022. Calcium 8.1(L) 8.5 - 10.3 mg/dL [facility] Blood 11/10/2024 9:24 PM CDT 11/10/2024 11:00 PM CDT Lee Elena MD LAB BLOOD ORDERABLES Krystyna l Result Performing Organization Address [facility] Co de Phone Number [facility] [place] [address] * POCT glucose (11/10/2024 8:06 PM CDT) Glucose, POC 139 70 - 199 mg/dL Blood 11/10/2024 8:06 PM CDT 11/10/2024 8:06 PM CDT Lee Elena MD LAB POCT ORDERABLES - DEV ICE Final Result Performing Organization Address [facility] Co de Phone Number [facility] [place] [address] * POCT glucose (11/10/2024 4:37 PM CDT) Glucose, POC 104 70 - 199 mg/dL Blood 11/10/2024 4:37 PM CDT 11/10/2024 4:37 PM CDT Lee Elena MD LAB POCT ORDERABLES - DEV ICE Final Result Performing Organization Address [facility] de Phone Number [facility] [place] [address] * XR Ribs Bilateral 4 or More [...] Hemoglobin and hematocrit (11/10/2024 3:00 PM CDT) Pathologist [facility] Hgb 9.5(L) 11.9 - 15.5 g/dL Hct 27.8(L) 35.6 - 45.5 % [facility] Blood 11/10/2024 3:00 PM CDT 11/10/2024 3:38 PM CDT Ash Valencia MD LAB BLOOD ORDERABLES Final Resul t [facility] Department [place] [address] * (ABNORMAL) Blood culture Blood (11/10/2024 2:37 PM CDT) Pathologist [facility] Direct Specimen Exam Stain: Gram Positive Cocci in clusters Time to culture positivity (aerobic media): 22.3 hours Time to culture positivity (anaerobic media): 29.9 hours Report Final Report: Staphylococcus aureus For susceptibility results, refer to accession number [id number] on the blood culture from 11/09/2024 (.) [facility] Organism STAPHYLOCOCCUS AUREUS [facility] Blood 11/10/2024 2:37 PM CDT 11/10/2024 3:44 PM CDT Narrative [facility] - 11/14/2024 1:07 PM CDT From a [...] performance characteristics have been verified by the [facility]. For questions about this culture, contact the Microbiology Laboratory at [phone]. Interpretive data was last revised on 24. us Lee Elena MD LAB MICROBIOLOGY - GENERA L ORDERABLES Final Result [facility] Department [place] [address] * (ABNORMAL) Blood culture Blood (11/10/2024 2:37 PM CDT) Direct Specimen Exam Stain: Gram Positive Cocci in clusters Time to culture positivity (aerobic media): 18.6 hours Time to culture positivity (anaerobic media): 22.9 hours Report Final Report: Staphylococcus aureus For susceptibility results, refer to accession number [id number] on the blood culture from 11/09/2024 (.) [facility] Organism STAPHYLOCOCCUS AUREUS [facility] Blood 11/10/2024 2:37 PM CDT 11/10/2024 3:44 PM CDT Narrative [facility] - 11/14/2024 1:09 PM CDT Collection->Peripheral 1. [...] performance characteristics have been verified by the [facility]. For questions about this culture, contact the Microbiology Laboratory at [phone]. Interpretive data was last revised on 24. Lee Elena MD LAB MICROBIOLOGY - GENERA L ORDERABLES Final Result Performing Organization Address City/[facility]/ZIP Co de Phone Number [facility] [place] [address] * Transfuse RBC (11/10/2024 2:03 PM CDT) Blood Lee Elena MD BLOOD TRANSFUSION ORDERAB LES Final Result Performing Organization Address City/[facility] Co de Phone Number [facility] [place] [address] * eGFR (11/10/2024 2:00 PM CDT) Pathologist [facility] eGFR >90 >=60 mL/min/1. 73 m2 Comment: [...] 2:00 PM CDT 11/10/2024 3:44 PM CDT Lee Elena MD LAB BLOOD ORDERABLES Krystyna l Result Performing Organization Address City/[facility]/ZIP Co de Phone Number [facility] [place] [address] * Phosphorus (11/10/2024 2:00 PM CDT) Phosphorus, pl 2.7 2.3 - 4.5 mg/dL Blood 11/10/2024 2:00 PM CDT 11/10/2024 3:40 PM CDT Lee Elean MD LAB BLOOD ORDERABLES Krystyna l Result [facility] [place] [address] * Magnesium (11/10/2024 2:00 PM CDT) Magnesium 1.5 1.4 - 2.5 mg/dL Blood 11/10/2024 2:00 PM CDT 11/10/2024 3:40 PM CDT Lee Elena MD LAB BLOOD ORDERABLES Krystyna l Result [facility] Department [place] [address] * (ABNORMAL) Basic metabolic panel (11/10/2024 2:00 PM CDT) Sodium 135 135 - 145 mmol/L Potassium, pl 3.8 3.3 - 4.9 mmol/L [facility] Chloride 104 97 - 110 mmol/L [facility] CO2 20(L) 22 - 32 mmol/L [facility] Anion gap 11 2 - 15 mmol/L [facility] BUN 6 6 - 25 mg/dL [facility] Creatinine 0.36(L) 0.60 - 1.10 mg/dL [facility] Glucose 99 70 - 199 mg/dL [facility] Comment: Interpretive Data Fasting glucose >/= 126 [...] 2022. Calcium 8.1(L) 8.5 - 10.3 mg/dL [facility] Blood 11/10/2024 2:00 PM CDT 11/10/2024 3:40 PM CDT Lee Elena MD LAB BLOOD ORDERABLES Krystyna l Result [facility] Department [place] [address] * POCT glucose (11/10/2024 11:29 AM CDT) Glucose, POC 131 70 - 199 mg/dL Blood 11/10/2024 11:2 9 AM CDT 11/10/2024 11:29 AM CDT Lee Elena MD LAB POCT ORDERABLES - DEV ICE Final Result Performing Organization Address [facility] [place] [address] * Type and screen (11/10/2024 8:35 AM CDT) ABO Rh A Positive Zach, indirect Negative [facility] Blood 11/10/2024 8:35 AM CDT 11/10/2024 9:58 AM CDT Narrative [facility] - 11/10/2024 10:47 AM CDT Has the patient had Daratumumab or Isatuximab in the past 6 months?->Unknown Lee Elena MD LAB BLOOD BANK TEST ORDER ALINE Final Result Performing Organization Address [facility] [place] [address] * Prepare RBC: 1 Units (11/10/2024 8:10 AM CDT) Product code [id number] Unit Number [id number] [facility] Product Blood Type APOS [facility] Dispense Status PRESUMED TRANSFUSED [facility] Blood 11/10/2024 8:10 AM CDT 11/10/2024 8:10 AM CDT Narrative [facility] - 11/11/2024 12:55 AM CDT Are special requirements needed? (All products are leukoreduced and CMV- safe)- >No Date required:-[id number] LRRBC # of [id number] Reasons:-Hgb <7 g/dL} Lee Elena MD BLOOD BANK PRODUCT ORDERA BLES Final Result Performing Organization Address [facility] de Phone Number [facility] [place] [address] * POCT glucose (11/10/2024 7:52 AM CDT) Glucose, POC 112 70 - 199 mg/dL Blood 11/10/2024 7:52 AM CDT 11/10/2024 7:52 AM CDT us Lee Elena MD LAB POCT ORDERABLES - DEV ICE Final Result Performing Organization Address [facility] de Phone Number [facility] [place] [address] * eGFR (11/10/2024 5:42 AM CDT) eGFR >90 >=60 mL/min/1. 73 [...] 5:42 AM CDT 11/10/2024 6:22 AM CDT us Lee Elena MD LAB BLOOD ORDERABLES Krystyna l Result Performing Organization Address [facility]/ZIP Co de Phone Number [facility] [place] [address] * (ABNORMAL) Hemoglobin and hematocrit (11/10/2024 5:42 AM CDT) Hgb 6.8(L) 11.9 - 15.5 g/dL Hct 19.8(L) 35.6 - 45.5 % [facility] Blood 11/10/2024 5:42 AM CDT 11/10/2024 6:16 AM CDT Lee Elena MD LAB BLOOD ORDERABLES Krystyna l Result Performing Organization Address City/[facility] [place] [address] * Phosphorus (11/10/2024 5:42 AM CDT) Pathologist [facility] Phosphorus, pl 3.6 2.3 - 4.5 mg/dL Blood 11/10/2024 5:42 AM CDT 11/10/2024 6:22 AM CDT Lee Elena MD LAB BLOOD ORDERABLES Krystyna l Result Performing Organization Address City/[facility]/ZIP Co de Phone Number [facility] [place] [address] * Magnesium (11/10/2024 5:42 AM CDT) [facility] Magnesium 2.1 1.4 - 2.5 mg/dL Blood 11/10/2024 5:42 AM CDT 11/10/2024 6:22 AM CDT Lee Elena MD LAB BLOOD ORDERABLES Krystyna l Result [facility] [place] [address] * (ABNORMAL) Basic metabolic panel (11/10/2024 5:42 AM CDT) Sodium 134(L) 135 - 145 mmol/L Potassium, pl 4.5 3.3 - 4.9 mmol/L [facility] Chloride 106 97 - 110 mmol/L [facility] CO2 21(L) 22 - 32 mmol/L [facility] Anion gap 7 2 - 15 mmol/L [facility] BUN 7 6 - 25 mg/dL [facility] Creatinine 0.36(L) 0.60 - 1.10 mg/dL [facility] Glucose 98 70 - 199 mg/dL [facility] Comment: Interpretive Data Fasting glucose >/= 126 [...] 2022. Calcium 7.7(L) 8.5 - 10.3 mg/dL [facility] Blood 11/10/2024 5:42 AM CDT 11/10/2024 6:22 AM CDT Lee Elena MD LAB BLOOD ORDERABLES Krystyna l Result [facility] Department [place] [address] * POCT glucose (11/10/2024 4:15 AM CDT) Pathologist [facility] Glucose, POC 112 70 - 199 mg/dL Blood 11/10/2024 4:15 AM CDT 11/10/2024 4:15 AM CDT Lee Elena MD LAB POCT ORDERABLES - DEV ICE Final Result [facility] [place] [address] * POCT glucose (11/09/2024 10:17 PM CDT) Glucose, POC 119 70 - 199 mg/dL Blood 11/09/2024 10:1 7 PM CDT 11/09/2024 10:17 PM CDT Lee Elena MD LAB POCT ORDERABLES - DEV ICE Final Result Performing Organization Address [facility] de Phone Number [facility] [place] [address] * eGFR (11/09/2024 10:09 PM CDT) Pathologist [facility] eGFR >90 >=60 mL/min/1. 73 m2 Comment: [...] MD LAB BLOOD ORDERABLES Krystyna meyers Result [facility] Department [place] [address] * (ABNORMAL) Differential, auto (11/09/2024 10:09 PM CDT) Neutrophil abs 4.11 1.50 - 6.50 K/cumm Imm gran abs 0.03 0.00 - 0.10 K/cumm [facility] Lymphocyte abs 0.51(L) 0.80 - 3.30 K/cumm [facility] Monocyte abs 0.26 0.20 - 0.80 K/cumm [facility] Eosinophil abs 0.01 0.00 - 0.50 K/cumm [facility] Basophil abs 0.01 0.00 - 0.10 K/cumm [facility] Neutrophil pct 83.4 % [facility] Comment: Interpretive Data Percent cell count reference ranges are not reported, since discordance with absolute values may lead to misinterpretation of CBC data. Current Interpretive Data was last revised on 2017. Imm gran pct 0.6 % [facility] Comment: Interpretive Data Percent cell count reference ranges are not reported, since discordance with absolute values may lead to misinterpretation of CBC data. Current Interpretive Data was last revised on 2017. Lymphocyte pct 10.3 % [facility] Comment: Interpretive Data Percent cell count reference ranges are not reported, since discordance with absolute values may lead to misinterpretation of CBC data. Current Interpretive Data was last revised on 2017. Monocyte pct 5.3 % [facility] Comment: Interpretive Data Percent cell count reference ranges are not reported, since discordance with absolute values may lead to misinterpretation of CBC data. Current Interpretive Data was last revised on 2017. Eosinophil pct 0.2 % [facility] Comment: Interpretive Data Percent cell count reference ranges are not reported, since discordance with absolute values may lead to misinterpretation of CBC data. Current Interpretive Data was last revised on 2017. Basophil pct 0.2 % [facility] Comment: Interpretive Data Percent cell count reference ranges are not reported, since discordance with absolute values may lead to misinterpretation of CBC data. Current Interpretive Data was last revised on 2017. Blood 11/09/2024 10:0 9 PM CDT 11/09/2024 10:29 PM CDT Lee Elena MD LAB BLOOD ORDERABLES Krystyna l Result Performing Organization Address City/[facility]/ZIP Co de Phone Number [facility] Department [place] [address] * (ABNORMAL) CBC with auto differential (11/09/2024 10:09 PM CDT) WBC 4.93 3.80 - 9.90 K/cumm Hgb 7.0(L) 11.9 - 15.5 g/dL [facility] Hct 20.4(L) 35.6 - 45.5 % [facility] Plt 100(L) 150 - 400 K/cumm [facility] MPV 10.9 9.1 - 12.3 fL [facility] RBC 2.02(L) 3.90 - 5.20 M/cumm [facility] MCV 101.0(H) 81.3 - 96.4 fL [facility] MCH 34.7(H) 27.1 - 33.3 pg [facility] MCHC 34.3 32.3 - 35.7 g/dL [facility] RDW CV 17.1(H) 11.1 - 14.9 % [facility] RDW SD 61.7(H) 35.7 - 48.1 fL [facility] NRBC abs 0.02(H) 0.00 - 0.01 K/cumm [facility] Blood 11/09/2024 10:0 9 PM CDT 11/09/2024 10:29 PM CDT Lee Elena MD LAB BLOOD ORDERABLES Krystyna l Result Performing Organization Address City/[facility]/ZIP Co de Phone Number [facility] [place] [address] * (ABNORMAL) Protime-INR (11/09/2024 10:09 PM CDT) Pathologist [facility] PT 17.4(H) 9.7 - 13.0 sec INR 1.60(H) 0.90 - 1.20 [facility] Comment: Interpretive data Oral anticoagulant therapeutic [...] ORDERABLES Krystyna l Result Performing Organization Address City/[facility]/ZIP Co de Phone Number [facility] Department [place] [address] * (ABNORMAL) Phosphorus (11/09/2024 10:09 PM CDT) [facility] Phosphorus, pl 2.2(L) 2.3 - 4.5 mg/dL Blood 11/09/2024 10:0 9 PM CDT 11/09/2024 10:28 PM CDT Lee Elena MD LAB BLOOD ORDERABLES Krystyna l Result [facility] [place] [address] * Magnesium (11/09/2024 10:09 PM CDT) [facility] Magnesium 1.5 1.4 - 2.5 mg/dL Blood 11/09/2024 10:0 9 PM CDT 11/09/2024 10:28 PM CDT Lee Elena MD LAB BLOOD ORDERABLES Krystyna l Result Performing Organization Address [facility]/ZIP Co de Phone Number [facility] [place] [address] * (ABNORMAL) Hepatic function panel (11/09/2024 10:09 PM CDT) Pathologist [facility] Bilirubin, total 1.2 0.1 - 1.2 mg/dL Bilirubin, direct 0.9(H) 0.1 - 0.3 mg/dL [facility] Protein, pl 4.5(L) 6.5 - 8.5 g/dL [facility] Albumin 1.8(L) 3.5 - 5.0 g/dL [facility] Alk phos 102 40 - 130 Units/L [facility] ALT 110(H) 7 - 45 Units/L [facility] AST 121(H) 10 - 45 Units/L [facility] Blood 11/09/2024 10:0 9 PM CDT 11/09/2024 10:28 PM CDT Lee Elena MD LAB BLOOD ORDERABLES Krystyna l Result Performing Organization Address [facility] Co de Phone Number [facility] Department [place] [address] * (ABNORMAL) Basic metabolic panel (11/09/2024 10:09 PM CDT) [facility] Sodium 137 135 - 145 mmol/L Potassium, pl 3.3 3.3 - 4.9 mmol/L [facility] Chloride 104 97 - 110 mmol/L [facility] CO2 23 22 - 32 mmol/L [facility] Anion gap 10 2 - 15 mmol/L [facility] BUN 8 6 - 25 mg/dL [facility] Creatinine 0.38(L) 0.60 - 1.10 mg/dL [facility] Glucose 102 70 - 199 mg/dL [facility] Comment: Interpretive Data Fasting glucose >/= 126 [...] 2022. Calcium 8.0(L) 8.5 - 10.3 mg/dL [facility] Blood 11/09/2024 10:0 9 PM CDT 11/09/2024 10:28 PM CDT Lee Elena MD LAB BLOOD ORDERABLES Krystyna l Result Performing Organization Address City/[facility] Co de Phone Number [facility] [place] [address] * POCT glucose (11/09/2024 6:05 PM CDT) Glucose, POC 101 70 - 199 mg/dL Blood 11/09/2024 6:05 PM CDT 11/09/2024 6:05 PM CDT Lee Elena MD LAB POCT ORDERABLES - DEV ICE Final Result Performing Organization Address [facility] Co de Phone Number [facility] [place] [address] * POCT glucose (11/09/2024 5:11 PM CDT) Glucose, POC 118 70 - 199 mg/dL Blood 11/09/2024 5:11 PM CDT 11/09/2024 5:11 PM CDT Lee Elena MD LAB POCT ORDERABLES - DEV ICE Final Result Performing Organization Address [facility] Co de Phone Number [facility] Department [place] [address] * Lactate (11/09/2024 1:20 PM CDT) Lactate 2.0 0.7 - 2.0 mmol/L Blood 11/09/2024 1:20 PM CDT 11/09/2024 2:24 PM CDT Lee Elena MD LAB BLOOD ORDERABLES Krystyna l Result [facility] [address] * eGFR (11/09/2024 1:20 PM CDT) eGFR >90 >=60 mL/min/1. 73 [...] LAB BLOOD ORDERABLES Krystyna l Result [facility] [place] [address] * (ABNORMAL) Differential, auto (11/09/2024 1:20 PM CDT) Neutrophil abs 4.77 1.50 - 6.50 K/cumm Imm gran abs 0.03 0.00 - 0.10 K/cumm [facility] Lymphocyte abs 0.25(L) 0.80 - 3.30 K/cumm [facility] Monocyte abs 0.19(L) 0.20 - 0.80 K/cumm [facility] Eosinophil abs 0.00 0.00 - 0.50 K/cumm [facility] Basophil abs 0.00 0.00 - 0.10 K/cumm [facility] Neutrophil pct 91.0 % [facility] Comment: Interpretive Data Percent cell count reference ranges are not reported, since discordance with absolute values may lead to misinterpretation of CBC data. Current Interpretive Data was last revised on 2017. Imm gran pct 0.6 % [facility] Comment: Interpretive Data Percent cell count reference ranges are not reported, since discordance with absolute values may lead to misinterpretation of CBC data. Current Interpretive Data was last revised on 2017. Lymphocyte pct 4.8 % [facility] Comment: Interpretive Data Percent cell count reference ranges are not reported, since discordance with absolute values may lead to misinterpretation of CBC data. Current Interpretive Data was last revised on 2017. Monocyte pct 3.6 % [facility] Comment: Interpretive Data Percent cell count reference ranges are not reported, since discordance with absolute values may lead to misinterpretation of CBC data. Current Interpretive Data was last revised on 2017. Eosinophil pct 0.0 % [facility] Comment: Interpretive Data Percent cell count reference ranges are not reported, since discordance with absolute values may lead to misinterpretation of CBC data. Current Interpretive Data was last revised on 2017. Basophil pct 0.0 % [facility] Comment: Interpretive Data Percent cell count reference ranges are not reported, since discordance with absolute values may lead to misinterpretation of CBC data. Current Interpretive Data was last revised on 2017. Blood 11/09/2024 1:20 PM CDT 11/09/2024 2:25 PM CDT Lee Elena MD LAB BLOOD ORDERABLES Krystyna mira Result Performing Organization Address [facility] Co de Phone Number [facility] Department [place] [address] * (ABNORMAL) CBC with auto differential (11/09/2024 1:20 PM CDT) [facility] WBC 5.24 3.80 - 9.90 K/cumm Hgb 7.8(L) 11.9 - 15.5 g/dL [facility] Hct 22.3(L) 35.6 - 45.5 % [facility] Plt 120(L) 150 - 400 K/cumm [facility] MPV 11.2 9.1 - 12.3 fL [facility] RBC 2.24(L) 3.90 - 5.20 M/cumm [facility] MCV 99.6(H) 81.3 - 96.4 fL [facility] MCH 34.8(H) 27.1 - 33.3 pg [facility] MCHC 35.0 32.3 - 35.7 g/dL [facility] RDW CV 16.8(H) 11.1 - 14.9 % [facility] RDW SD 59.7(H) 35.7 - 48.1 fL [facility] NRBC abs 0.00 0.00 - 0.01 K/cumm [facility] Blood 11/09/2024 1:20 PM CDT 11/09/2024 2:25 PM CDT Lee Elena MD LAB BLOOD ORDERABLES Krystyna meyers Result Performing Organization Address [facility]/ZIP Co de Phone Number [facility] Department [place] [address] * (ABNORMAL) Phosphorus (11/09/2024 1:20 PM CDT) Pathologist [facility] Phosphorus, pl 2.1(L) 2.3 - 4.5 mg/dL Blood 11/09/2024 1:20 PM CDT 11/09/2024 2:25 PM CDT Result [facility] Lee Elena MD LAB BLOOD ORDERABLES Krystyna l Result Performing Organization Address [facility] Co de Phone Number [facility] [place] [address] * Magnesium (11/09/2024 1:20 PM CDT) Pathologist [facility] Magnesium 1.8 1.4 - 2.5 mg/dL Blood 11/09/2024 1:20 PM CDT 11/09/2024 2:25 PM CDT Result [facility] Lee Elena MD LAB BLOOD ORDERABLES Krystyna l Result Performing Organization Address [facility] de Phone Number [facility] [place] [address] * (ABNORMAL) Hepatic function panel (11/09/2024 1:20 PM CDT) Pathologist [facility] Bilirubin, total 1.7(H) 0.1 - 1.2 mg/dL Bilirubin, direct 1.2(H) 0.1 - 0.3 mg/dL [facility] Protein, pl 5.2(L) 6.5 - 8.5 g/dL [facility] Albumin 2.2(L) 3.5 - 5.0 g/dL [facility] Alk phos 125 40 - 130 Units/L [facility] ALT 152(H) 7 - 45 Units/L [facility] AST 173(H) 10 - 45 Units/L [facility] Blood 11/09/2024 1:20 PM CDT 11/09/2024 2:25 PM CDT Lee Elena MD LAB BLOOD ORDERABLES Krystyna l Result Performing Organization Address [facility] Co de Phone Number [facility] [place] [address] * (ABNORMAL) Basic metabolic panel (11/09/2024 1:20 PM CDT) Sodium 134(L) 135 - 145 mmol/L Potassium, pl 4.4 3.3 - 4.9 mmol/L [facility] Chloride 105 97 - 110 mmol/L [facility] Comment:Repeated and Verifie d CO2 22 22 - 32 mmol/L [facility] Anion gap 8 2 - 15 mmol/L [facility] BUN 8 6 - 25 mg/dL [facility] Creatinine 0.39(L) 0.60 - 1.10 mg/dL [facility] Glucose 98 70 - 199 mg/dL [facility] Comment: Interpretive Data Fasting glucose >/= 126 [...] 2022. Calcium 9.6 8.5 - 10.3 mg/dL [facility] Blood 11/09/2024 1:20 PM CDT 11/09/2024 2:25 PM CDT us Lee Elena MD LAB BLOOD ORDERABLES Krystyna l Result [facility] [place] [address] * POCT glucose (11/09/2024 11:33 AM CDT) Glucose, POC 115 70 - 199 mg/dL Blood 11/09/2024 11:3 3 AM CDT 11/09/2024 11:33 AM CDT Lee Elena MD LAB POCT ORDERABLES - DEV ICE Final Result Performing Organization Address [facility] Co de Phone Number [facility] Department of Laboratories [place] [address] * POCT glucose (11/09/2024 7:00 AM CDT) [facility] Glucose, POC 146 70 - 199 mg/dL Blood 11/09/2024 7:00 AM CDT 11/09/2024 7:00 AM CDT Lee Elena MD LAB POCT ORDERABLES - DEV ICE Final Result Performing Organization Address [facility] [place] [address] * C. difficile testing Stool (11/09/2024 5:53 AM CDT) [facility] Result Positive Negative Toxin Result Negative Negative [facility] C. diff result Negative, free toxin. Negative, free toxin [facility] C. diff interp GDH+/toxin- results almost never represent true C. difficile infection (CDI). Results may represent colonization with C. difficile without CDI, detection of a bacteria other than toxigenic C. difficile, or a false negative toxin assay. If there is a high index of suspicion for CDI, additional testing by PCR is available upon request. [facility] Stool 11/09/2024 5:53 AM CDT 11/09/2024 8:03 AM CDT Lee Elena MD LAB MICROBIOLOGY - GENERA L ORDERABLES Final Result Performing Organization Address [facility] Co de Phone Number [facility] [place] [address] * POCT glucose (11/09/2024 4:41 AM CDT) Pathologist [facility] Glucose, POC 102 70 - 199 mg/dL Blood 11/09/2024 4:41 AM CDT 11/09/2024 4:41 AM CDT Lee Elena MD LAB POCT ORDERABLES - DEV ICE Final Result Performing Organization Address [facility] de Phone Number [facility] Department [place] [address] * Influenza A/B, RSV, and COVID-19 PCR Nasopharyngeal (11/09/2024 3:40 AM CDT) [facility] COVID-19 RNA Negative Negative [facility] Influenza A RNA Negative Negative [facility] Influenza B RNA Negative Negative [facility] RSV RNA Negative Negative [facility] Comment: Interpretive data: Testing performed by [facility] ([phone]). This test is performed using the [employer] Xpert Xpress CoV-2/Flu/RSV plus assay. This is a multiplex, real-time reverse transcriptase PCR assay intended for the qualitative detection of nucleic acid from SARS-CoV-2, influenza A, influenza B, and respiratory syncytial virus. This assay has been cleared by the [place] Food and Drug administration. The performance characteristics have been verified by the [facility]. Results must be considered in the clinical context, and a negative result does not rule out infection. Interpretive Data last revised 2023 Nasopharyngeal 11/09/2024 3: 40 AM CDT 11/09/2024 4:57 AM CDT Narrative [facility] - 11/09/2024 5:52 AM CDT Is the Patient experiencing symptoms consistent with COVID?->No Lee Elena MD LAB MICROBIOLOGY - GENERA L ORDERABLES Final Result Performing Organization Address [facility] Co de Phone Number [facility] Department [place] [address] [facility] * (ABNORMAL) Hemoglobin and hematocrit (11/09/2024 3:40 AM CDT) Hgb 7.7(L) 11.9 - 15.5 g/dL Hct 20.9(L) 35.6 - 45.5 % [facility] Blood 11/09/2024 3:40 AM CDT 11/09/2024 3:50 AM CDT us Lee Elena MD LAB BLOOD ORDERABLES Krystyna meyers Result [facility] Department [place] [address] * XR Chest 1 View (11/09/2024 2:18 AM CDT) Anatomical Region Laterality Modality Body, Chest N/A Digital Radiogra phy 11/09/2024 9:5 0 AM CDT Impressions 11/09/2024 12:47 PM CDT [...] it. Electronically signed by: Fabian Sesay M.D. us Lee Elena MD IMG XR PROCEDURES Final R esult * (ABNORMAL) Urinalysis reflex to microscopic and culture Urine, in and out catheter (11/09/2024 2:18AM CDT) Color, ur Yellow Yellow Clarity, ur Cloudy(A) Clear [facility] Specific gravity, ur 1.018 1.003 - 1.030 [facility] pH, urine 6.0 [facility] Comment: Interpretive Data U rine pH is affected by diet, medications, systemic acid-base disturbances, and renal tubular function. pH may affect urinary stone formation. For example, urine pH below 6.0 may help reduce the tendency for calcium phosphate stones and pH greater than 6.0 may reduce the tendency for uric acid stone formation. Source: [facility] [employer] Current Interpretive Data was last revised on 2017 Protein, ur ql Trace Negative [facility] Glucose, ur ql Negative Negative [facility] Ketones, ur Negative Negative [facility] Bilirubin, ur Negative Negative [facility] Blood, ur Negative Negative [facility] Urobilinogen, ur <2.0 <2.0 mg/dL [facility] Nitrite, ur Positive(A) Negative [facility] Leukocyte esterase, ur 1+(A) Negative [facility] UA reflex comment Reflex to microscopic UA will be performed. [facility] Urine, in and out catheter 11/09/2024 2:18 AM CDT 11/09/2024 3:31 AM CDT us Lee Elena MD LAB MICROBIOLOGY - GENERA L ORDERABLES Final Result [facility] Department [place] [address] * (ABNORMAL) Urinalysis, microscopic only (11/09/2024 2:18 AM CDT) WBC, ur 21-50(A) 0 - 5 /HPF RBC, ur 0-2 0 - 2 /HPF [facility] Epithelial cells, renal, ur 1-5(A) 0 - 0 /HPF [facility] Bacteria, ur 2+(A) [facility] Mucous, ur Present(A) [facility] Culture Reflex Comment Reflex to urine culture will be performed. [facility] Urine, in and out catheter 11/09/2024 2:18 AM CDT 11/09/2024 3:31 AM CDT Lee Elena MD LAB URINE ORDERABLES Krystyna l Result Performing Organization Address [facility]/ZIP Co de Phone Number [facility] Department [place] [address] * (ABNORMAL) Urine culture Urine, in and out catheter (11/09/2024 2:18 AM CDT) Report Final Report: Greater than or equal to 100,000 colonies/mL of Klebsiella pneumoniae Plus growth of clinically insignificant bacterial jemal. (.) Organism KLEBSIELLA PNEUMONIAE [facility] Organism PLUS GROWTH OF CLINICALLY INSIGNIFICANT JEMAL. [facility] Urine, in and out catheter 11/09/2024 2:18 AM CDT 11/09/2024 5:03 AM CDT Narrative [facility] - 11/11/2024 10:29 AM CDT Urine culture reflexed based upon urinalysis results. Testing performed by [facility] ([phone]) Organism Antibiotic Method Susceptibility Klebsiella pneumoniae Ampicillin [...] L ORDERABLES Final Result Performing Organization Address City/[facility]/ZIP Co de Phone Number [facility] Department [place] [address] * ECG 12 lead (11/09/2024 1:56 AM CDT) Ventricular Rate EKG/Min 121 BPM [facility] Atrial Rate 121 BPM [facility] GA-Interval (MSEC) 86 ms [facility] QRS-Interval (MSEC) 72 ms [facility] QT-Interval (MSEC) 334 ms [facility] QTc 474 ms [facility] P [place] 19 degrees [facility] R [place] 22 degrees [facility] T [place] -78 degrees [facility] Diagnosis Sinus tachycardia with short GA Low voltage QRS Possible Inferior infarct , age undetermined ST & T wave abnormality, consider anterior ischemia Abnormal ECG When compared with ECG of 08-NOV-2024 05:56, GA interval has decreased Borderline criteria for Inferior infarct are now Present ST now depressed in Anterior leads Confirmed by SHALINI RODRIGUEZ M.D ([id number]) on 11/09/2024 10:00:29 PM [facility] 11/09/2024 1:56 AM CDT 11/09/2024 10:00 PM CDT us Ash Valencia MD ECG ORDERABLES Final Result [facility] * (ABNORMAL) Blood culture Blood (11/09/2024 1:39 AM CDT) Pathologist [facility] Direct Specimen Exam Stain: Gram Positive Cocci in clusters Time to culture positivity (aerobic media): 9.4 hours Time to culture positivity (anaerobic media): 14.3 hours Report Final Report: Staphylococcus aureus For susceptibility results, refer to accession number [id number] on the blood culture from 11/09/2024 (.) [facility] Organism STAPHYLOCOCCUS AUREUS [facility] Blood 11/09/2024 1:39 AM CDT 11/09/2024 2:13 AM CDT Narrative [facility] - 11/12/2024 10:31 AM CDT From [...] performance characteristics have been verified by the [facility]. For questions about this culture, contact the Microbiology Laboratory at [phone]. Interpretive data was last revised on 24. Lee Elean MD LAB MICROBIOLOGY - GENERA L ORDERABLES Final Result Performing Organization Address City/[facility]/ZIP Co de Phone Number SHONA [facility] Department [place] [address] * (ABNORMAL) Lactate (11/09/2024 1:30 AM CDT) Lactate 2.7(H) 0.7 - 2.0 mmol/L Blood 11/09/2024 1:30 AM CDT 11/09/2024 1:47 AM CDT Lee Elena MD LAB BLOOD ORDERABLES Krystyna l Result Performing Organization Address City/[facility]/ZIP Co de Phone Number SHONA [facility] Department [place] [address] * (ABNORMAL) Blood culture Blood (11/09/2024 1:30 AM CDT) Direct Specimen Exam Stain: Gram Positive Cocci in clusters Time to culture positivity (aerobic media): 8.5 hours Time to culture positivity (anaerobic media): 12.9 hours Notification of: Gram Positive Cocci in clusters called to and read back by: Lee Elena MD [phone] on 11/09/2024 12:01:28 by: Chula Andujar MLS Direct Specimen Exam Molecular Analysis: Methicillin-suscep tible Staphylococcus aureus (MSSA) detected by the [facility] [employer] BCID-GP panel. This test does not exclude the possibility of a mixed bacterial infection. Notification of: Methicillin-suscep tible Staphylococcus aureus called to and read back by: Dr. Ash Valencia [phone] on 11/09/2024 13:55:26 by: Ivanna Cruz [facility] Report Final Report: Staphylococcus aureus Methicillin susceptible (MSSA) by penicillin binding protein 2a (PBP2a) testing. (.) [facility] Organism STAPHYLOCOCCUS AUREUS [facility] Blood 11/09/2024 1:30 AM CDT 11/09/2024 2:13 AM CDT Narrative [facility] - 11/12/2024 10:17 AM CDT Collection->Peripheral [...] performance characteristics have been verified by the [facility]. For questions about this culture, contact the Microbiology Laboratory at [phone]. Interpretive data was last revised on 24. [...] (ROGER) INTERPRETATIO N Susceptible Staphylococcus aureus Ceftriaxone (ROGRE) INTERPRETATIO N Susceptible Lee Elena MD LAB MICROBIOLOGY - GENERA L ORDERABLES Final Result [facility] [place] [address] * (ABNORMAL) Protime-INR (11/09/2024 1:30 AM CDT) PT 18.4(H) 9.7 - 13.0 sec INR 1.69(H) 0.90 - 1.20 [facility] Comment: Interpretive data Oral anticoagulant therapeutic ranges: Venous thromboembolism prophylaxis or treatment: 2.0-3.0 CARDIOLOGY Standard range: 2.0-3.0 High-intensity range: 2.5-3.5 Refer to indication-specific guidelines for appropriate target ranges for prosthetic heart valve replacement. Current interpretive data was last revised on 2019. Blood 11/09/2024 1:30 AM CDT 11/09/2024 1:44 AM CDT Juliano Arredondo MD LAB BLOOD ORDERABLE S Final Result [facility] [place] [address] * (ABNORMAL) CBC without differential (11/09/2024 1:30 AM CDT) WBC 5.79 3.80 - 9.90 K/cumm Hgb 7.7(L) 11.9 - 15.5 g/dL [facility] Comment:FIORDALIZA RODGERS RN Large delta with no apparant cause, correlate with clinical context and redraw if indicated. This result has been called to FIORDALIZA RODGERS RN by [email or web address] on 11/09/2024 02:26:21. Hct 21.2(L) 35.6 - 45.5 % [facility] Plt 152 150 - 400 K/cumm [facility] MPV 10.4 9.1 - 12.3 fL [facility] RBC 2.22(L) 3.90 - 5.20 M/cumm [facility] MCV 95.5 81.3 - 96.4 fL [facility] MCH 34.7(H) 27.1 - 33.3 pg [facility] MCHC 36.3(H) 32.3 - 35.7 g/dL [facility] RDW CV 16.7(H) 11.1 - 14.9 % [facility] RDW SD 57.2(H) 35.7 - 48.1 fL [facility] NRBC abs 0.00 0.00 - 0.01 K/cumm [facility] Blood 11/09/2024 1:30 AM CDT 11/09/2024 1:59 AM CDT Lee Elena MD LAB BLOOD ORDERABLES Krystyna l Result Performing Organization Address City/[facility]/ZIP Co de Phone Number [facility] [place] [address] * POCT glucose (11/08/2024 11:56 PM CDT) [facility] Glucose, POC 120 70 - 199 mg/dL Blood 11/08/2024 11:5 6 PM CDT 11/08/2024 11:56 PM CDT Lee Elena MD LAB POCT ORDERABLES - DEV ICE Final Result Performing Organization Address City/[facility]/ZIP Co de Phone Number [facility] Department [place] [address] * eGFR (11/08/2024 10:32 PM CDT) eGFR [...] MD LAB BLOOD ORDERABLE S Final Result [facility] [place] [address] * (ABNORMAL) Phosphorus (11/08/2024 10:32 PM CDT) Phosphorus, pl 1.7(L) 2.3 - 4.5 mg/dL Blood 11/08/2024 10:3 2 PM CDT 11/08/2024 11:39 PM CDT Juliano Arredondo MD LAB BLOOD ORDERABLE S Final Result [facility] [place] [address] * Magnesium (11/08/2024 10:32 PM CDT) Pathologist [facility] Magnesium 1.7 1.4 - 2.5 mg/dL Blood 11/08/2024 10:3 2 PM CDT 11/08/2024 11:39 PM CDT us Juliano Arredondo MD LAB BLOOD ORDERABLE S Final Result Performing Organization Address City/[facility]/ZIP Co de Phone Number [facility] [place] [address] * (ABNORMAL) Hepatic function panel (11/08/2024 10:32 PM CDT) [facility] Bilirubin, total 1.7(H) 0.1 - 1.2 mg/dL Bilirubin, direct 1.4(H) 0.1 - 0.3 mg/dL [facility] Protein, pl 5.1(L) 6.5 - 8.5 g/dL [facility] Albumin 2.2(L) 3.5 - 5.0 g/dL [facility] Alk phos 138(H) 40 - 130 Units/L [facility] ALT 175(H) 7 - 45 Units/L [facility] AST 253(H) 10 - 45 Units/L [facility] Blood 11/08/2024 10:3 2 PM CDT 11/08/2024 11:39 PM CDT us Lee Elena MD LAB BLOOD ORDERABLES Krystyna l Result [facility] Department [place] [address] * (ABNORMAL) Basic metabolic panel (11/08/2024 10:32 PM CDT) Pathologist [facility] Sodium 130(L) 135 - 145 mmol/L Potassium, pl 2.8(L) 3.3 - 4.9 mmol/L [facility] Chloride 93(L) 97 - 110 mmol/L [facility] CO2 26 22 - 32 mmol/L [facility] Anion gap 11 2 - 15 mmol/L [facility] BUN 11 6 - 25 mg/dL [facility] Creatinine 0.45(L) 0.60 - 1.10 mg/dL [facility] Glucose 106 70 - 199 mg/dL [facility] Comment: Interpretive Data Fasting glucose >/= 126 [...] 2022. Calcium 7.6(L) 8.5 - 10.3 mg/dL [facility] Blood 11/08/2024 10:3 2 PM CDT 11/08/2024 11:39 PM CDT us Juliano Arredondo MD LAB BLOOD ORDERABLE S Final Result Performing Organization Address City/[facility]/ZIP Co de Phone Number [facility] [place] [address] * POCT glucose (11/08/2024 7:33 PM CDT) [facility] Signature Glucose, POC 118 70 - 199 mg/dL Blood 11/08/2024 7:33 PM CDT 11/08/2024 7:33 PM CDT us Lee Elena MD LAB POCT ORDERABLES - DEV ICE Final Result Performing Organization Address [facility]/ZIP Co de Phone Number [facility] Department [place] [address] * POCT glucose (11/08/2024 4:40 PM CDT) Glucose, POC 99 70 - 199 mg/dL Blood 11/08/2024 4:40 PM CDT 11/08/2024 4:40 PM CDT Lee Elena MD LAB POCT ORDERABLES - DEV ICE Final Result Performing Organization Address [facility] de Phone Number [facility] [place] [address] * POCT glucose (11/08/2024 7:51 AM CDT) Glucose, POC 97 70 - 199 mg/dL Blood 11/08/2024 7:51 AM CDT 11/08/2024 7:51 AM CDT Lee Elena MD LAB POCT ORDERABLES - DEV ICE Final Result Performing Organization Address [facility] de Phone Number [facility] [place] [address] * ECG 12 lead (11/08/2024 5:56 AM CDT) Ventricular Rate EKG/Min 129 BPM [facility] Atrial Rate 129 BPM [facility] GA-Interval (MSEC) 126 ms [facility] QRS-Interval (MSEC) 72 ms [facility] QT-Interval (MSEC) 294 ms [facility] QTc 430 ms [facility] P [place] 47 degrees [facility] R [place] 40 degrees [facility] T [place] -48 degrees [facility] Diagnosis Sinus tachycardia T wave abnormality, consider anterior ischemia Abnormal ECG When compared with ECG of 06-NOV-2024 04:42, No significant change was found Confirmed by SHALINI RODRIGUEZ M.D ([id number]) on 11/08/2024 4:40:32 PM [facility] 11/08/2024 5:56 AM CDT 11/08/2024 4:40 PM CDT Juliano Arredondo MD ECG ORDERABLES Fin al Result [facility] * POCT glucose (11/08/2024 4:16 AM CDT) Glucose, POC 102 70 - 199 mg/dL Blood 11/08/2024 4:16 AM CDT 11/08/2024 4:16 AM CDT Lee Elena MD LAB POCT ORDERABLES - DEV ICE Final Result [facility] Department [place] [address] * (ABNORMAL) Differential, auto (11/08/2024 3:45 AM CDT) [facility] Neutrophil abs 2.96 1.50 - 6.50 K/cumm Imm gran abs 0.01 0.00 - 0.10 K/cumm [facility] Lymphocyte abs 0.33(L) 0.80 - 3.30 K/cumm [facility] Monocyte abs 0.29 0.20 - 0.80 K/cumm [facility] Eosinophil abs 0.01 0.00 - 0.50 K/cumm [facility] Basophil abs 0.01 0.00 - 0.10 K/cumm [facility] Neutrophil pct 82.0 % [facility] Comment: Interpretive Data Percent cell count reference ranges are not reported, since discordance with absolute values may lead to misinterpretation of CBC data. Current Interpretive Data was last revised on 2017. Imm gran pct 0.3 % [facility] Comment: Interpretive Data Percent cell count reference ranges are not reported, since discordance with absolute values may lead to misinterpretation of CBC data. Current Interpretive Data was last revised on 2017. Lymphocyte pct 9.1 % [facility] Comment: Interpretive Data Percent cell count reference ranges are not reported, since discordance with absolute values may lead to misinterpretation of CBC data. Current Interpretive Data was last revised on 2017. Monocyte pct 8.0 % [facility] Comment: Interpretive Data Percent cell count reference ranges are not reported, since discordance with absolute values may lead to misinterpretation of CBC data. Current Interpretive Data was last revised on 2017. Eosinophil pct 0.3 % [facility] Comment: Interpretive Data Percent cell count reference ranges are not reported, since discordance with absolute values may lead to misinterpretation of CBC data. Current Interpretive Data was last revised on 2017. Basophil pct 0.3 % [facility] Comment: Interpretive Data Percent cell count reference ranges are not reported, since discordance with absolute values may lead to misinterpretation of CBC data. Current Interpretive Data was last revised on 2017. Blood 11/08/2024 3:45 AM CDT 11/08/2024 4:06 AM CDT us Lee Elena MD LAB BLOOD ORDERABLES Krystyna l Result Performing Organization Address City/[facility] de Phone Number [facility] Department [place] [address] * (ABNORMAL) Protime-INR (11/08/2024 3:45 AM CDT) PT 14.7(H) 9.7 - 13.0 sec INR 1.35(H) 0.90 - 1.20 [facility] Comment: Interpretive data Oral anticoagulant therapeutic [...] ORDERABLE S Final Result Performing Organization Address [facility] de Phone Number [facility] Department [place] [address] * (ABNORMAL) CBC without differential (11/08/2024 3:45 AM CDT) Pathologist [facility] WBC 3.60(L) 3.80 - 9.90 K/cumm Hgb 11.0(L) 11.9 - 15.5 g/dL [facility] Hct 32.0(L) 35.6 - 45.5 % [facility] Plt 192 150 - 400 K/cumm [facility] MPV 11.0 9.1 - 12.3 fL [facility] RBC 3.19(L) 3.90 - 5.20 M/cumm [facility] MCV 100.3(H) 81.3 - 96.4 fL [facility] MCH 34.5(H) 27.1 - 33.3 pg [facility] MCHC 34.4 32.3 - 35.7 g/dL [facility] RDW CV 16.6(H) 11.1 - 14.9 % [facility] RDW SD 59.6(H) 35.7 - 48.1 fL [facility] NRBC abs 0.02(H) 0.00 - 0.01 K/cumm [facility] Blood 11/08/2024 3:45 AM CDT 11/08/2024 4:02 AM CDT us Juliano Arredondo MD LAB BLOOD ORDERABLE S Final Result [facility] Department [place] [address] * POCT glucose (11/08/2024 1:29 AM CDT) [facility] Glucose, POC 110 70 - 199 mg/dL Blood 11/08/2024 1:29 AM CDT 11/08/2024 1:29 AM CDT us Lee Elena MD LAB POCT ORDERABLES - DEV ICE Final Result Performing Organization Address [facility] Co de Phone Number SHONA [facility] Department [place] [address] * eGFR (11/07/2024 9:52 PM CDT) eGFR [...] ORDERABLE S Final Result Performing Organization Address [facility] Co de Phone Number [facility] [place] [address] * Phosphorus (11/07/2024 9:52 PM CDT) Phosphorus, pl 2.8 2.3 - 4.5 mg/dL Blood 11/07/2024 9:52 PM CDT 11/07/2024 10:37 PM CDT Juliano Arredondo MD LAB BLOOD ORDERABLE S Final Result Performing Organization Address City/[facility] Co de Phone Number [facility] Department [place] [address] * Magnesium (11/07/2024 9:52 PM CDT) [facility] Magnesium 2.4 1.4 - 2.5 mg/dL Blood 11/07/2024 9:52 PM CDT 11/07/2024 10:37 PM CDT us Juliano Arredondo MD LAB BLOOD ORDERABLE S Final Result Performing Organization Address [facility] de Phone Number [facility] [place] [address] * (ABNORMAL) Hepatic function panel (11/07/2024 9:52 PM CDT) [facility] Bilirubin, total 2.1(H) 0.1 - 1.2 mg/dL Bilirubin, direct 1.5(H) 0.1 - 0.3 mg/dL [facility] Protein, pl 6.3(L) 6.5 - 8.5 g/dL [facility] Albumin 2.6(L) 3.5 - 5.0 g/dL [facility] Alk phos 265(H) 40 - 130 Units/L [facility] ALT 315(H) 7 - 45 Units/L [facility] AST 670(H) 10 - 45 Units/L [facility] Comment:Reviewed Blood 11/07/2024 9:52 PM CDT 11/07/2024 10:37 PM CDT us Lee Elena MD LAB BLOOD ORDERABLES Krystyna l Result Performing Organization Address City/[facility] Co de Phone Number [facility] Department [place] [address] * (ABNORMAL) Basic metabolic panel (11/07/2024 9:52 PM CDT) Sodium 134(L) 135 - 145 mmol/L Potassium, pl 3.7 3.3 - 4.9 mmol/L [facility] Chloride 95(L) 97 - 110 mmol/L [facility] CO2 24 22 - 32 mmol/L [facility] Anion gap 15 2 - 15 mmol/L [facility] BUN 7 6 - 25 mg/dL [facility] Creatinine 0.39(L) 0.60 - 1.10 mg/dL [facility] Glucose 113 70 - 199 mg/dL [facility] Comment: Interpretive Data Fasting glucose >/= 126 [...] 2022. Calcium 8.6 8.5 - 10.3 mg/dL [facility] Blood 11/07/2024 9:52 PM CDT 11/07/2024 10:37 PM CDT us Juliano Arredondo MD LAB BLOOD ORDERABLE S Final Result Performing Organization Address City/[facility]/ZIP Co de Phone Number [facility] Department [place] [address] * POCT glucose (11/07/2024 7:49 PM CDT) Glucose, POC 123 70 - 199 mg/dL Blood 11/07/2024 7:49 PM CDT 11/07/2024 7:49 PM CDT us Lee Elena MD LAB POCT ORDERABLES - DEV ICE Final Result Performing Organization Address City/[facility]/ZIP Co de Phone Number [facility] Department [place] [address] * POCT glucose (11/07/2024 4:53 PM CDT) Glucose, POC 115 70 - 199 mg/dL Blood 11/07/2024 4:53 PM CDT 11/07/2024 4:53 PM CDT Lee Elena MD LAB POCT ORDERABLES - DEV ICE Final Result [facility] [place] [address] * POCT glucose (11/07/2024 11:13 AM CDT) Glucose, POC 150 70 - 199 mg/dL Blood 11/07/2024 11:1 3 AM CDT 11/07/2024 11:13 AM CDT us Lee Elena MD LAB POCT ORDERABLES - DEV ICE Final Result Performing Organization Address City/[facility] de Phone Number [facility] Department [place] [address] * eGFR (11/07/2024 10:19 AM CDT) eGFR [...] ORDERABLE S Final Result Performing Organization Address City/[facility] Co de Phone Number [facility] [place] [address] * Phosphorus (11/07/2024 10:19 AM CDT) Phosphorus, pl 3.5 2.3 - 4.5 mg/dL Blood 11/07/2024 10:1 9 AM CDT 11/07/2024 11:22 AM CDT Juliano Arredondo MD LAB BLOOD ORDERABLE S Final Result Performing Organization Address [facility] de Phone Number [facility] Department [place] [address] * Magnesium (11/07/2024 10:19 AM CDT) Magnesium 1.5 1.4 - 2.5 mg/dL Blood 11/07/2024 10:1 9 AM CDT 11/07/2024 11:22 AM CDT Juliano Arredondo MD LAB BLOOD ORDERABLE S Final Result Performing Organization Address City/[facility] Co de Phone Number [facility] [place] [address] * (ABNORMAL) Basic metabolic panel (11/07/2024 10:19 AM CDT) Sodium 137 135 - 145 mmol/L Potassium, pl 3.8 3.3 - 4.9 mmol/L [facility] Chloride 99 97 - 110 mmol/L [facility] CO2 26 22 - 32 mmol/L [facility] Anion gap 12 2 - 15 mmol/L [facility] BUN 6 6 - 25 mg/dL [facility] Creatinine 0.37(L) 0.60 - 1.10 mg/dL [facility] Glucose 127 70 - 199 mg/dL [facility] Comment: Interpretive Data Fasting glucose >/= 126 [...] 2022. Calcium 8.2(L) 8.5 - 10.3 mg/dL [facility] Blood 11/07/2024 10:1 9 AM CDT 11/07/2024 11:22 AM CDT us Juliano Arredondo MD LAB BLOOD ORDERABLE S Final Result Performing Organization Address City/[facility]/ZIP Co de Phone Number [facility] [place] [address] * POCT glucose (11/07/2024 7:34 AM CDT) Glucose, POC 129 70 - 199 mg/dL Blood 11/07/2024 7:34 AM CDT 11/07/2024 7:34 AM CDT us Lee Elena MD LAB POCT ORDERABLES - DEV ICE Final Result [facility] Department [place] [address] * Protime-INR (11/07/2024 4:47 AM CDT) [facility] PT 11.1 9.7 - 13.0 sec INR 1.03 0.90 - 1.20 [facility] Comment: Interpretive data Oral anticoagulant therapeutic ranges: Venous thromboembolism prophylaxis or treatment: 2.0-3.0 CARDIOLOGY Standard range: 2.0-3.0 High-intensity range: 2.5-3.5 Refer to indication-specific guidelines for appropriate target ranges for prosthetic heart valve replacement. Current interpretive data was last revised on 2019. Blood 11/07/2024 4:47 AM CDT 11/07/2024 5:37 AM CDT us Juliano Arredondo MD LAB BLOOD ORDERABLE S Final Result [facility] Department [place] [address] * (ABNORMAL) CBC without differential (11/07/2024 4:47 AM CDT) [facility] WBC 5.50 3.80 - 9.90 K/cumm Hgb 9.4(L) 11.9 - 15.5 g/dL [facility] Hct 28.0(L) 35.6 - 45.5 % [facility] Plt 150 150 - 400 K/cumm [facility] MPV 11.0 9.1 - 12.3 fL [facility] RBC 2.73(L) 3.90 - 5.20 M/cumm [facility] MCV 102.6(H) 81.3 - 96.4 fL [facility] MCH 34.4(H) 27.1 - 33.3 pg [facility] MCHC 33.6 32.3 - 35.7 g/dL [facility] RDW CV 16.1(H) 11.1 - 14.9 % [facility] RDW SD 59.1(H) 35.7 - 48.1 fL [facility] NRBC abs 0.00 0.00 - 0.01 K/cumm [facility] Blood 11/07/2024 4:47 AM CDT 11/07/2024 4:57 AM CDT Juliano Arredondo MD LAB BLOOD ORDERABLE S Final Result Performing Organization Address [facility] Co de Phone Number [facility] [place] [address] * (ABNORMAL) Hepatic function panel (11/07/2024 4:47 AM CDT) Bilirubin, total 1.6(H) 0.1 - 1.2 mg/dL Bilirubin, direct 1.0(H) 0.1 - 0.3 mg/dL [facility] Protein, pl 5.4(L) 6.5 - 8.5 g/dL [facility] Albumin 2.4(L) 3.5 - 5.0 g/dL [facility] Alk phos 271(H) 40 - 130 Units/L [facility] ALT 250(H) 7 - 45 Units/L [facility] AST 137(H) 10 - 45 Units/L [facility] Blood 11/07/2024 4:47 AM CDT 11/07/2024 4:56 AM CDT Juliano Arredondo MD LAB BLOOD ORDERABLE S Final Result Performing Organization Address City/[facility]/ZIP Co de Phone Number [facility] Department [place] [address] * POCT glucose (11/07/2024 4:29 AM CDT) Glucose, POC 133 70 - 199 mg/dL Blood 11/07/2024 4:29 AM CDT 11/07/2024 4:29 AM CDT eLe Elena MD LAB POCT ORDERABLES - DEV ICE Final Result Performing Organization Address [facility] Co de Phone Number SHONA [facility] Department [place] [address] * eGFR (11/06/2024 9:12 PM CDT) eGFR [...] ORDERABLE S Final Result Performing Organization Address [facility] Co de Phone Number [facility] [place] [address] * Phosphorus (11/06/2024 9:12 PM CDT) Phosphorus, pl 3.3 2.3 - 4.5 mg/dL Blood 11/06/2024 9:12 PM CDT 11/06/2024 9:53 PM CDT Juliano Arredondo MD LAB BLOOD ORDERABLE S Final Result [facility] Department [place] [address] * Magnesium (11/06/2024 9:12 PM CDT) [facility] Magnesium 2.2 1.4 - 2.5 mg/dL Blood 11/06/2024 9:12 PM CDT 11/06/2024 9:53 PM CDT Juliano Arredondo MD LAB BLOOD ORDERABLE S Final Result Performing Organization Address [facility] Co de Phone Number [facility] Department [place] [address] * (ABNORMAL) Basic metabolic panel (11/06/2024 9:12 PM CDT) [facility] Sodium 135 135 - 145 mmol/L Potassium, pl 4.5 3.3 - 4.9 mmol/L [facility] Chloride 100 97 - 110 mmol/L [facility] CO2 27 22 - 32 mmol/L [facility] Anion gap 8 2 - 15 mmol/L [facility] BUN 4(L) 6 - 25 mg/dL [facility] Creatinine 0.36(L) 0.60 - 1.10 mg/dL [facility] Glucose 106 70 - 199 mg/dL [facility] Comment: Interpretive Data Fasting glucose >/= 126 [...] 2022. Calcium 8.1(L) 8.5 - 10.3 mg/dL [facility] Blood 11/06/2024 9:12 PM CDT 11/06/2024 9:53 PM CDT us Juliano Arredondo MD LAB BLOOD ORDERABLE S Final Result [facility] [place] [address] * POCT glucose (11/06/2024 8:41 PM CDT) Glucose, POC 112 70 - 199 mg/dL Blood 11/06/2024 8:41 PM CDT 11/06/2024 8:41 PM CDT us Lee Elena MD LAB POCT ORDERABLES - DEV ICE Final Result Performing Organization Address City/[facility] Co de Phone Number [facility] [place] [address] * eGFR (11/06/2024 3:51 PM CDT) eGFR [...] OR DERABLES Final Result Performing Organization Address [facility] Co de Phone Number [facility] [place] [address] * Phosphorus (11/06/2024 3:51 PM CDT) Pathologist [facility] Phosphorus, pl 3.4 2.3 - 4.5 mg/dL Blood 11/06/2024 3:51 PM CDT 11/06/2024 4:30 PM CDT Mar George MD LAB BLOOD OR DERABLES Final Result Performing Organization Address [facility] de Phone Number [facility] Department [place] [address] * (ABNORMAL) Magnesium (11/06/2024 3:51 PM CDT) [facility] Magnesium 3.1(H) 1.4 - 2.5 mg/dL Blood 11/06/2024 3:51 PM CDT 11/06/2024 4:30 PM CDT Mar George MD LAB BLOOD OR DERABLES Final Result Performing Organization Address [facility] [place] [address] * (ABNORMAL) Hepatic function panel (11/06/2024 3:51 PM CDT) Bilirubin, total 1.3(H) 0.1 - 1.2 mg/dL Bilirubin, direct 0.6(H) 0.1 - 0.3 mg/dL [facility] Comment:Hemolyzed; result ma y be falsely decreased Protein, pl 4.9(L) 6.5 - 8.5 g/dL [facility] Albumin 2.1(L) 3.5 - 5.0 g/dL [facility] Alk phos 252(H) 40 - 130 Units/L [facility] ALT 243(H) 7 - 45 Units/L [facility] AST 150(H) 10 - 45 Units/L [facility] Comment:Hemolyzed; result ma y be falsely elevated Blood 11/06/2024 3:51 PM CDT 11/06/2024 4:30 PM CDT us Juliano Arredondo MD LAB BLOOD ORDERABLE S Final Result [facility] Department [place] [address] * (ABNORMAL) Basic metabolic panel (11/06/2024 3:51 PM CDT) Sodium 133(L) 135 - 145 mmol/L Potassium, pl 5.1(H) 3.3 - 4.9 mmol/L [facility] Comment:Hemolyzed; Potassium value may be falsely elevated by as much as 0.3-0.5 mmol/L. Suggest redraw and reanalysis. Chloride 98 97 - 110 mmol/L [facility] CO2 27 22 - 32 mmol/L [facility] Anion gap 8 2 - 15 mmol/L [facility] BUN 3(L) 6 - 25 mg/dL [facility] Creatinine 0.34(L) 0.60 - 1.10 mg/dL [facility] Glucose 129 70 - 199 mg/dL [facility] Comment: Interpretive Data Fasting glucose >/= 126 [...] 2022. Calcium 7.8(L) 8.5 - 10.3 mg/dL [facility] Blood 11/06/2024 3:51 PM CDT 11/06/2024 4:30 PM CDT Mar George MD LAB BLOOD OR DERABLES Final Result Performing Organization Address City/[facility] Co de Phone Number [facility] [place] [address] * POCT glucose (11/06/2024 3:50 PM CDT) Glucose, POC 139 70 - 199 mg/dL Blood 11/06/2024 3:50 PM CDT 11/06/2024 3:50 PM CDT us Juliano Arredondo MD LAB POCT ORDERABLES - DEVICE Final Result Performing Organization Address [facility] Co de Phone Number [facility] [place] [place] [address] * POCT glucose (11/06/2024 11:49 AM CDT) Glucose, POC 151 70 - 199 mg/dL Blood 11/06/2024 11:4 9 AM CDT 11/06/2024 11:49 AM CDT Juliano Arredondo MD LAB POCT ORDERABLES - DEVICE Final Result Performing Organization Address City/[facility] Co de Phone Number [facility] [place] [place] [address] * POCT glucose (11/06/2024 7:55 AM CDT) Glucose, POC 126 70 - 199 mg/dL Blood 11/06/2024 7:55 AM CDT 11/06/2024 7:55 AM CDT us Juliano Arredondo MD LAB POCT ORDERABLES - DEVICE Final Result Performing Organization Address [facility] Co de Phone Number [facility] [place] [address] * eGFR (11/06/2024 5:38 AM CDT) eGFR [...] OR DERABLES Final Result Performing Organization Address City/[facility]/ZIP Co de Phone Number [facility] Department [place] [address] * Protime-INR (11/06/2024 5:38 AM CDT) PT 10.6 9.7 - 13.0 sec INR 0.98 0.90 - 1.20 [facility] Comment: Interpretive data Oral anticoagulant therapeutic ranges: Venous thromboembolism prophylaxis or treatment: 2.0-3.0 CARDIOLOGY Standard range: 2.0-3.0 High-intensity range: 2.5-3.5 Refer to indication-specific guidelines for appropriate target ranges for prosthetic heart valve replacement. Current interpretive data was last revised on 2019. Blood 11/06/2024 5:38 AM CDT 11/06/2024 5:58 AM CDT Juliano Arredondo MD LAB BLOOD ORDERABLE S Final Result [facility] Department [place] [address] * (ABNORMAL) CBC without differential (11/06/2024 5:38 AM CDT) WBC 3.46(L) 3.80 - 9.90 K/cumm Hgb 9.1(L) 11.9 - 15.5 g/dL [facility] Hct 26.1(L) 35.6 - 45.5 % [facility] Plt 146(L) 150 - 400 K/cumm [facility] MPV 10.2 9.1 - 12.3 fL [facility] RBC 2.58(L) 3.90 - 5.20 M/cumm [facility] MCV 101.2(H) 81.3 - 96.4 fL [facility] MCH 35.3(H) 27.1 - 33.3 pg [facility] MCHC 34.9 32.3 - 35.7 g/dL [facility] RDW CV 15.9(H) 11.1 - 14.9 % [facility] RDW SD 58.6(H) 35.7 - 48.1 fL [facility] NRBC abs 0.00 0.00 - 0.01 K/cumm [facility] Blood 11/06/2024 5:38 AM CDT 11/06/2024 5:57 AM CDT Juliano Arredondo MD LAB BLOOD ORDERABLE S Final Result Performing Organization Address [facility] Co de Phone Number [facility] [place] [address] * Phosphorus (11/06/2024 5:38 AM CDT) Phosphorus, pl 3.0 2.3 - 4.5 mg/dL Blood 11/06/2024 5:38 AM CDT 11/06/2024 5:57 AM CDT Mar George MD LAB BLOOD OR DERABLES Final Result Performing Organization Address [facility] Co de Phone Number [facility] [place] [address] * Magnesium (11/06/2024 5:38 AM CDT) [facility] Magnesium 1.7 1.4 - 2.5 mg/dL Blood 11/06/2024 5:38 AM CDT 11/06/2024 5:57 AM CDT Result [facility] Mar George MD LAB BLOOD OR DERABLES Final Result Performing Organization Address [facility] [place] [address] * (ABNORMAL) Hepatic function panel (11/06/2024 5:38 AM CDT) Bilirubin, total 1.3(H) 0.1 - 1.2 mg/dL Bilirubin, direct 1.0(H) 0.1 - 0.3 mg/dL [facility] Protein, pl 5.1(L) 6.5 - 8.5 g/dL [facility] Albumin 2.4(L) 3.5 - 5.0 g/dL [facility] Alk phos 291(H) 40 - 130 Units/L [facility] ALT 295(H) 7 - 45 Units/L [facility] AST 201(H) 10 - 45 Units/L [facility] Blood 11/06/2024 5:38 AM CDT 11/06/2024 5:57 AM CDT us Juliano Arredondo MD LAB BLOOD ORDERABLE S Final Result Performing Organization Address City/State/[facility] Co de Phone Number [facility] Department [place] [address] * (ABNORMAL) Basic metabolic panel (11/06/2024 5:38 AM CDT) Sodium 139 135 - 145 mmol/L Potassium, pl 4.4 3.3 - 4.9 mmol/L [facility] Chloride 102 97 - 110 mmol/L [facility] CO2 28 22 - 32 mmol/L [facility] Anion gap 9 2 - 15 mmol/L [facility] BUN 2(L) 6 - 25 mg/dL [facility] Creatinine 0.37(L) 0.60 - 1.10 mg/dL [facility] Glucose 104 70 - 199 mg/dL [facility] Comment: Interpretive Data Fasting glucose >/= 126 [...] 2022. Calcium 8.3(L) 8.5 - 10.3 mg/dL [facility] Blood 11/06/2024 5:38 AM CDT 11/06/2024 5:57 AM CDT us Mar George MD LAB BLOOD OR DERABLES Final Result Performing Organization Address City/[facility] Co de Phone Number SHONA [facility] Department [place] [address] * ECG 12 lead (11/06/2024 4:42 AM CDT) [facility] Ventricular Rate EKG/Min 93 BPM [facility] Atrial Rate 93 BPM [facility] GA-Interval (MSEC) 106 ms [facility] QRS-Interval (MSEC) 76 ms [facility] QT-Interval (MSEC) 356 ms [facility] QTc 442 ms [facility] P [place] 56 degrees [facility] R [place] 45 degrees [facility] T [place] 54 degrees [facility] Diagnosis Sinus rhythm with short [place] Nonspecific T wave abnormality Abnormal ECG When compared with ECG of 05-NOV-2024 12:04, No significant change was found Confirmed by SHALINI RODRIGUEZ M.D ([id number]) on 11/06/2024 1:44:41 PM [facility] 11/06/2024 4:42 AM CDT 11/06/2024 1:44 PM CDT Juliano Arredondo MD ECG ORDERABLES Fin al Result Performing Organization Address [facility] de Phone Number [facility] * POCT glucose (11/06/2024 3:46 AM CDT) [facility] Glucose, POC 113 70 - 199 mg/dL Blood 11/06/2024 3:46 AM CDT 11/06/2024 3:46 AM CDT Juliano Arredondo MD LAB POCT ORDERABLES - DEVICE Final Result Performing Organization Address [facility] Co de Phone Number SHONA [facility] Department [place] [address] * eGFR (11/06/2024 12:39 AM CDT) [facility] eGFR >90 >=60 mL/min/1. 73 m2 Comment: [...] MD LAB BLOOD OR DERABLES Final Result [facility] [place] [address] * Phosphorus (11/06/2024 12:39 AM CDT) Phosphorus, pl 2.9 2.3 - 4.5 mg/dL Blood 11/06/2024 12:3 9 AM CDT 11/06/2024 12:57 AM CDT Mar George MD LAB BLOOD OR DERABLES Final Result [facility] [place] [address] * Magnesium (11/06/2024 12:39 AM CDT) Magnesium 2.4 1.4 - 2.5 mg/dL Blood 11/06/2024 12:3 9 AM CDT 11/06/2024 12:57 AM CDT Mar George MD LAB BLOOD OR DERABLES Final Result [facility] [place] [address] * (ABNORMAL) Basic metabolic panel (11/06/2024 12:39 AM CDT) [facility] Sodium 139 135 - 145 mmol/L Potassium, pl 4.2 3.3 - 4.9 mmol/L [facility] Chloride 103 97 - 110 mmol/L [facility] CO2 28 22 - 32 mmol/L [facility] Anion gap 8 2 - 15 mmol/L [facility] BUN 2(L) 6 - 25 mg/dL [facility] Creatinine 0.37(L) 0.60 - 1.10 mg/dL [facility] Glucose 110 70 - 199 mg/dL [facility] Comment: Interpretive Data Fasting glucose >/= 126 [...] 2022. Calcium 8.4(L) 8.5 - 10.3 mg/dL [facility] Blood 11/06/2024 12:3 9 AM CDT 11/06/2024 12:57 AM CDT Mar George MD LAB BLOOD OR DERABLES Final Result Performing Organization Address City/[facility]/ZIP Co de Phone Number [facility] [place] [address] * POCT glucose (11/05/2024 11:37 PM CDT) Glucose, POC 150 70 - 199 mg/dL Blood 11/05/2024 11:3 7 PM CDT 11/05/2024 11:37 PM CDT Juliano Arredondo MD LAB POCT ORDERABLES - DEVICE Final Result [facility] [address] * POCT glucose (11/05/2024 8:03 PM CDT) Glucose, POC 138 70 - 199 mg/dL Blood 11/05/2024 8:03 PM CDT 11/05/2024 8:03 PM CDT Juliano Arredondo MD LAB POCT ORDERABLES - DEVICE Final Result Performing Organization Address City/[facility]/[place] [address] * eGFR (11/05/2024 3:44 PM CDT) eGFR [...] OR DERABLES Final Result Performing Organization Address City/[facility] Co de Phone Number [facility] [place] [address] * Phosphorus (11/05/2024 3:44 PM CDT) Phosphorus, pl 3.1 2.3 - 4.5 mg/dL Blood 11/05/2024 3:44 PM CDT 11/05/2024 3:58 PM CDT Mar George MD LAB BLOOD OR DERABLES Final Result Performing Organization Address [facility] Co de Phone Number [facility] [place] [address] * Magnesium (11/05/2024 3:44 PM CDT) Magnesium 1.7 1.4 - 2.5 mg/dL Blood 11/05/2024 3:44 PM CDT 11/05/2024 3:58 PM CDT Mar George MD LAB BLOOD OR DERABLES Final Result Performing Organization Address [facility] Co de Phone Number [facility] [place] [address] * (ABNORMAL) Hepatic function panel (11/05/2024 3:44 PM CDT) Bilirubin, total 1.2 0.1 - 1.2 mg/dL Bilirubin, direct 0.7(H) 0.1 - 0.3 mg/dL [facility] Protein, pl 4.8(L) 6.5 - 8.5 g/dL [facility] Albumin 2.0(L) 3.5 - 5.0 g/dL [facility] Alk phos 256(H) 40 - 130 Units/L [facility] ALT 337(H) 7 - 45 Units/L [facility] AST 277(H) 10 - 45 Units/L [facility] Blood 11/05/2024 3:44 PM CDT 11/05/2024 3:58 PM CDT us Juliano Arredondo MD LAB BLOOD ORDERABLE S Final Result [facility] [place] [address] * (ABNORMAL) Basic metabolic panel (11/05/2024 3:44 PM CDT) Sodium 136 135 - 145 mmol/L Potassium, pl 3.8 3.3 - 4.9 mmol/L [facility] Chloride 101 97 - 110 mmol/L [facility] CO2 26 22 - 32 mmol/L [facility] Anion gap 9 2 - 15 mmol/L [facility] BUN 2(L) 6 - 25 mg/dL [facility] Creatinine 0.35(L) 0.60 - 1.10 mg/dL [facility] Glucose 110 70 - 199 mg/dL [facility] Comment: Interpretive Data Fasting glucose >/= 126 [...] 2022. Calcium 8.2(L) 8.5 - 10.3 mg/dL [facility] Blood 11/05/2024 3:44 PM CDT 11/05/2024 3:58 PM CDT Mar George MD LAB BLOOD OR DERABLES Final Result Performing Organization Address City/[facility]/ZIP Co de Phone Number [facility] Department [place] [address] * POCT glucose (11/05/2024 3:43 PM CDT) Pathologist [facility] Glucose, POC 119 70 - 199 mg/dL Blood 11/05/2024 3:43 PM CDT 11/05/2024 3:43 PM CDT Juliano Arredondo MD LAB POCT ORDERABLES - DEVICE Final Result Performing Organization Address [facility] Co de Phone Number [facility] Department [place] [address] * ECG 12 lead (11/05/2024 12:04 PM CDT) [facility] Ventricular Rate EKG/Min 83 BPM [facility] Atrial Rate 83 BPM [facility] GA-Interval (MSEC) 100 ms [facility] QRS-Interval (MSEC) 80 ms [facility] QT-Interval (MSEC) 376 ms [facility] QTc 441 ms [facility] P [place] 66 degrees [facility] R [place] 69 degrees [facility] T [place] -77 degrees [facility] Diagnosis Sinus rhythm Nonspecific T wave abnormality Abnormal ECG Confirmed by Gustabo Mcdaniels MD ([id number]) on 11/05/2024 4:06:41 PM [facility] 11/05/2024 12:0 4 PM CDT 11/05/2024 4:06 PM CDT Juliano Arredondo MD ECG ORDERABLES Fin al Result Performing Organization Address City/[facility]/ZIP Co de Phone Number [facility] * POCT glucose (11/05/2024 11:41 AM CDT) Glucose, POC 120 70 - 199 mg/dL Blood 11/05/2024 11:4 1 AM CDT 11/05/2024 11:41 AM CDT Juliano Arredondo MD LAB POCT ORDERABLES - DEVICE Final Result Performing Organization Address [facility] Co de Phone Number [facility] Department [place] [address] * POCT glucose (11/05/2024 7:43 AM CDT) Pathologist [facility] Glucose, POC 113 70 - 199 mg/dL Blood 11/05/2024 7:43 AM CDT 11/05/2024 7:43 AM CDT Juliano Arredondo MD LAB POCT ORDERABLES - DEVICE Final Result Performing Organization Address [facility] de Phone Number [facility] Department [place] [address] * ECG 12 lead (11/05/2024 6:04 AM CDT) Pathologist [facility] Ventricular Rate EKG/Min 83 BPM [facility] Atrial Rate 83 BPM [facility] GA-Interval (MSEC) 98 ms [facility] QRS-Interval (MSEC) 68 ms [facility] QT-Interval (MSEC) 362 ms [facility] QTc 425 ms [facility] P [place] 65 degrees [facility] R [place] 45 degrees [facility] T [place] 12 degrees [facility] Diagnosis Sinus rhythm with short GA T wave abnormality, consider anterior ischemia Abnormal ECG Confirmed by Gustabo Mcdaniels MD ([id number]) on 11/05/2024 4:02:55 PM [facility] 11/05/2024 6:04 AM CDT 11/05/2024 4:02 PM CDT us Juliano Arredondo MD ECG ORDERABLES Fin al Result [facility] * eGFR (11/05/2024 5:08 AM CDT) eGFR [...] OR DERABLES Final Result Performing Organization Address City/[facility] Co de Phone Number [facility] Department [place] [address] * Protime-INR (11/05/2024 5:08 AM CDT) PT 12.9 9.7 - 13.0 sec INR 1.19 0.90 - 1.20 [facility] Comment: Interpretive data Oral anticoagulant therapeutic ranges: Venous thromboembolism prophylaxis or treatment: 2.0-3.0 CARDIOLOGY Standard range: 2.0-3.0 High-intensity range: 2.5-3.5 Refer to indication-specific guidelines for appropriate target ranges for prosthetic heart valve replacement. Current interpretive data was last revised on 2019. Blood 11/05/2024 5:08 AM CDT 11/05/2024 5:36 AM CDT Juliano Arredondo MD LAB BLOOD ORDERABLE S Final Result [facility] Department [place] [address] * (ABNORMAL) CBC without differential (11/05/2024 5:08 AM CDT) WBC 2.28(L) 3.80 - 9.90 K/cumm Hgb 8.5(L) 11.9 - 15.5 g/dL [facility] Hct 24.5(L) 35.6 - 45.5 % [facility] Plt 126(L) 150 - 400 K/cumm [facility] MPV 11.0 9.1 - 12.3 fL [facility] RBC 2.48(L) 3.90 - 5.20 M/cumm [facility] MCV 98.8(H) 81.3 - 96.4 fL [facility] MCH 34.3(H) 27.1 - 33.3 pg [facility] MCHC 34.7 32.3 - 35.7 g/dL [facility] RDW CV 15.9(H) 11.1 - 14.9 % [facility] RDW SD 56.5(H) 35.7 - 48.1 fL [facility] NRBC abs 0.00 0.00 - 0.01 K/cumm [facility] Blood 11/05/2024 5:08 AM CDT 11/05/2024 5:31 AM CDT Juliano Arredondo MD LAB BLOOD ORDERABLE S Final Result [facility] [place] [address] * (ABNORMAL) CRP (acute phase) (11/05/2024 5:08 AM CDT) [facility] CRP 40.2(H) <=10.0 mg/L Blood 11/05/2024 5:08 AM CDT 11/05/2024 5:30 AM CDT Juliano Arredondo MD LAB BLOOD ORDERABLE S Final Result Performing Organization Address City/[facility] Co de Phone Number [facility] [place] [address] * Phosphorus (11/05/2024 5:08 AM CDT) [facility] Phosphorus, pl 3.8 2.3 - 4.5 mg/dL Blood 11/05/2024 5:08 AM CDT 11/05/2024 5:30 AM CDT Mar George MD LAB BLOOD OR DERABLES Final Result Performing Organization Address City/[facility] Co de Phone Number [facility] Department [place] [address] * Magnesium (11/05/2024 5:08 AM CDT) [facility] Magnesium 2.2 1.4 - 2.5 mg/dL Blood 11/05/2024 5:08 AM CDT 11/05/2024 5:30 AM CDT Mar George MD LAB BLOOD OR DERABLES Final Result Performing Organization Address City/[facility]/ZIP Co de Phone Number [facility] Department [place] [address] * (ABNORMAL) Hepatic function panel (11/05/2024 5:08 AM CDT) [facility] Bilirubin, total 1.4(H) 0.1 - 1.2 mg/dL Bilirubin, direct 1.0(H) 0.1 - 0.3 mg/dL [facility] Protein, pl 4.7(L) 6.5 - 8.5 g/dL [facility] Albumin 2.3(L) 3.5 - 5.0 g/dL [facility] Alk phos 295(H) 40 - 130 Units/L [facility] ALT 376(H) 7 - 45 Units/L [facility] AST 388(H) 10 - 45 Units/L [facility] Blood 11/05/2024 5:08 AM CDT 11/05/2024 5:30 AM CDT Mar George MD LAB BLOOD OR DERABLES Final Result [facility] Department [place] [address] * (ABNORMAL) Basic metabolic panel (11/05/2024 5:08 AM CDT) [facility] Sodium 136 135 - 145 mmol/L Potassium, pl 4.1 3.3 - 4.9 mmol/L [facility] Chloride 101 97 - 110 mmol/L [facility] CO2 26 22 - 32 mmol/L [facility] Anion gap 9 2 - 15 mmol/L [facility] BUN 2(L) 6 - 25 mg/dL [facility] Creatinine 0.41(L) 0.60 - 1.10 mg/dL [facility] Glucose 108 70 - 199 mg/dL [facility] Comment: Interpretive Data Fasting glucose >/= 126 [...] 2022. Calcium 8.1(L) 8.5 - 10.3 mg/dL [facility] Blood 11/05/2024 5:08 AM CDT 11/05/2024 5:30 AM CDT us Mar George MD LAB BLOOD OR DERABLES Final Result [facility] Department [place] [address] * POCT glucose (11/05/2024 3:53 AM CDT) Glucose, POC 164 70 - 199 mg/dL Blood 11/05/2024 3:53 AM CDT 11/05/2024 3:53 AM CDT us Juliano Arredondo MD LAB POCT ORDERABLES - DEVICE Final Result Performing Organization Address City/[facility] Co de Phone Number [facility] [place] [address] * eGFR (11/04/2024 11:44 PM CDT) eGFR [...] OR DERABLES Final Result Performing Organization Address City/[facility] Co de Phone Number [facility] [place] [address] * Phosphorus (11/04/2024 11:44 PM CDT) Phosphorus, pl 3.9 2.3 - 4.5 mg/dL Blood 11/04/2024 11:4 4 PM CDT 11/05/2024 4:37 AM CDT Mar George MD LAB BLOOD OR DERABLES Final Result Performing Organization Address [facility] [place] [address] * (ABNORMAL) Magnesium (11/04/2024 11:44 PM CDT) Magnesium 3.0(H) 1.4 - 2.5 mg/dL Comment:Repeated and Verifie d Blood 11/04/2024 11:4 4 PM CDT 11/05/2024 4:37 AM CDT Mar George MD LAB BLOOD OR DERABLES Final Result Performing Organization Address [facility] Co de Phone Number [facility] [place] [address] * (ABNORMAL) Basic metabolic panel (11/04/2024 11:44 PM CDT) Sodium 136 135 - 145 mmol/L Potassium, pl See Comment 3.3 - 4.9 mmol/L [facility] Comment:Credited: Specimen t oo old Chloride 99 97 - 110 mmol/L [facility] CO2 See Comment 22 - 32 mmol/L [facility] Comment:Credited: Specimen t oo old Anion gap See Comment 2 - 15 mmol/L [facility] Comment:Credited: Specimen t oo old BUN 3(L) 6 - 25 mg/dL [facility] Creatinine 0.43(L) 0.60 - 1.10 mg/dL [facility] Glucose See Comment 70 - 199 mg/dL [facility] Comment: Credited: Specimen too old Interpretive Data [...] 2022. Calcium 8.2(L) 8.5 - 10.3 mg/dL [facility] Blood 11/04/2024 11:4 4 PM CDT 11/05/2024 4:37 AM CDT us Mar George MD LAB BLOOD OR DERABLES Edited Result - Final [facility] Department [place] [address] * POCT glucose (11/04/2024 11:41 PM CDT) Glucose, POC 141 70 - 199 mg/dL Blood 11/04/2024 11:4 1 PM CDT 11/04/2024 11:41 PM CDT Juliano Arredondo MD LAB POCT ORDERABLES - DEVICE Final Result [facility] [place] [address] * POCT glucose (11/04/2024 8:01 PM CDT) Glucose, POC 157 70 - 199 mg/dL Blood 11/04/2024 8:01 PM CDT 11/04/2024 8:01 PM CDT Juliano Arredondo MD LAB POCT ORDERABLES - DEVICE Final Result Performing Organization Address [facility] Co de Phone Number [facility] [place] [address] * eGFR (11/04/2024 3:43 PM CDT) eGFR [...] OR DERABLES Final Result Performing Organization Address [facility] Co de Phone Number [facility] [place] [address] * (ABNORMAL) Protime-INR (11/04/2024 3:43 PM CDT) PT 16.9(H) 9.7 - 13.0 sec INR 1.55(H) 0.90 - 1.20 [facility] Comment: Interpretive data Oral anticoagulant therapeutic ranges: Venous thromboembolism prophylaxis or treatment: 2.0-3.0 CARDIOLOGY Standard range: 2.0-3.0 High-intensity range: 2.5-3.5 Refer to indication-specific guidelines for appropriate target ranges for prosthetic heart valve replacement. Current interpretive data was last revised on 2019. Blood 11/04/2024 3:43 PM CDT 11/04/2024 4:59 PM CDT Result [facility] Juliano Arredondo MD LAB BLOOD ORDERABLE S Final Result Performing Organization Address [facility] [place] [address] * Phosphorus (11/04/2024 3:43 PM CDT) Pathologist [facility] Phosphorus, pl 3.9 2.3 - 4.5 mg/dL Blood 11/04/2024 3:43 PM CDT 11/04/2024 4:55 PM CDT Mar George MD LAB BLOOD OR DERABLES Final Result Performing Organization Address [facility] [place] [address] * (ABNORMAL) Magnesium (11/04/2024 3:43 PM CDT) Pathologist [facility] Magnesium 1.2(L) 1.4 - 2.5 mg/dL Blood 11/04/2024 3:43 PM CDT 11/04/2024 4:55 PM CDT us Mar George MD LAB BLOOD OR DERABLES Final Result [facility] Department [place] [address] * (ABNORMAL) Hepatic function panel (11/04/2024 3:43 PM CDT) [facility] Bilirubin, total 1.7(H) 0.1 - 1.2 mg/dL Bilirubin, direct 1.3(H) 0.1 - 0.3 mg/dL [facility] Protein, pl 4.3(L) 6.5 - 8.5 g/dL [facility] Albumin 1.7(L) 3.5 - 5.0 g/dL [facility] Alk phos 251(H) 40 - 130 Units/L [facility] ALT 459(H) 7 - 45 Units/L [facility] AST 683(H) 10 - 45 Units/L [facility] Blood 11/04/2024 3:43 PM CDT 11/04/2024 4:55 PM CDT us Juliano Arredondo MD LAB BLOOD ORDERABLE S Final Result [facility] [place] [address] * (ABNORMAL) Basic metabolic panel (11/04/2024 3:43 PM CDT) Pathologist [facility] Sodium 133(L) 135 - 145 mmol/L Potassium, pl 3.5 3.3 - 4.9 mmol/L [facility] Chloride 94(L) 97 - 110 mmol/L [facility] CO2 24 22 - 32 mmol/L [facility] Anion gap 15 2 - 15 mmol/L [facility] BUN 4(L) 6 - 25 mg/dL [facility] Creatinine 0.42(L) 0.60 - 1.10 mg/dL [facility] Glucose 107 70 - 199 mg/dL [facility] Comment: Interpretive Data Fasting glucose >/= 126 [...] 2022. Calcium 7.4(L) 8.5 - 10.3 mg/dL [facility] Blood 11/04/2024 3:43 PM CDT 11/04/2024 4:55 PM CDT us Mar George MD LAB BLOOD OR DERABLES Final Result Performing Organization Address City/[facility]/ZIP Co de Phone Number [facility] [place] [address] * POCT glucose (11/04/2024 3:42 PM CDT) Glucose, POC 123 70 - 199 mg/dL Blood 11/04/2024 3:42 PM CDT 11/04/2024 3:42 PM CDT us Juliano Arredondo MD LAB POCT ORDERABLES - DEVICE Final Result Performing Organization Address [facility]/ZIP Co de Phone Number [facility] [place] [address] * POCT glucose (11/04/2024 12:45 PM CDT) Glucose, POC 108 70 - 199 mg/dL Blood 11/04/2024 12:4 5 PM CDT 11/04/2024 12:45 PM CDT Juliano Arredondo MD LAB POCT ORDERABLES - DEVICE Final Result Performing Organization Address [facility] Co de Phone Number [facility] [place] [address] * POCT glucose (11/04/2024 11:47 AM CDT) Glucose, POC 74 70 - 199 mg/dL Blood 11/04/2024 11:4 7 AM CDT 11/04/2024 11:47 AM CDT Juliano Arredondo MD LAB POCT ORDERABLES - DEVICE Final Result Performing Organization Address [facility] Co de Phone Number [facility] [place] [address] * POCT glucose (11/04/2024 8:06 AM CDT) Glucose, POC 112 70 - 199 mg/dL Blood 11/04/2024 8:06 AM CDT 11/04/2024 8:06 AM CDT Juliano Arredondo MD LAB POCT ORDERABLES - DEVICE Final Result Performing Organization Address City/[facility] [place] [address] * POCT glucose (11/04/2024 7:48 AM CDT) Glucose, POC 125 70 - 199 mg/dL Blood 11/04/2024 7:48 AM CDT 11/04/2024 7:48 AM CDT us Juliano Arredondo MD LAB POCT ORDERABLES - DEVICE Final Result [facility] [place] [address] * (ABNORMAL) POCT glucose (11/04/2024 7:04 AM CDT) Pathologist [facility] Glucose, POC 60(L) 70 - 199 mg/dL Blood 11/04/2024 7:04 AM CDT 11/04/2024 7:04 AM CDT Juliano Arredondo MD LAB POCT ORDERABLES - DEVICE Final Result Performing Organization Address [facility] Co de Phone Number [facility] [place] [address] * ECG 12 lead (11/04/2024 6:32 AM CDT) [facility] Ventricular Rate EKG/Min 97 BPM [facility] Atrial Rate 97 BPM [facility] GA-Interval (MSEC) 104 ms [facility] QRS-Interval (MSEC) 68 ms [facility] QT-Interval (MSEC) 372 ms [facility] QTc 472 ms [facility] P [place] 39 degrees [facility] R [place] 52 degrees [facility] T [place] 178 degrees [facility] Diagnosis Poor data quality, interpretation may be adversely affected Sinus rhythm with short GA Nonspecific ST and T wave abnormality suggests inferolateral ischemia Abnormal ECG When compared with ECG of 03-NOV-2024 12:35, (unconfirmed) Nonspecific T wave abnormality, improved in Inferior leads Confirmed by BILLY CHACKO M.D ([id number]) on 11/06/2024 9:15:38 AM [facility] 11/04/2024 6:32 AM CDT 11/06/2024 9:15 AM CDT us Juliano Arredondo MD ECG ORDERABLES Fin al Result [facility] * eGFR (11/04/2024 6:03 AM CDT) eGFR [...] OR DERABLES Final Result Performing Organization Address City/[facility] Co de Phone Number [facility] [place] [address] * (ABNORMAL) Protime-INR (11/04/2024 6:03 AM CDT) PT 19.8(H) 9.7 - 13.0 sec INR 1.81(H) 0.90 - 1.20 [facility] Comment: Interpretive data Oral anticoagulant therapeutic ranges: Venous thromboembolism prophylaxis or treatment: 2.0-3.0 CARDIOLOGY Standard range: 2.0-3.0 High-intensity range: 2.5-3.5 Refer to indication-specific guidelines for appropriate target ranges for prosthetic heart valve replacement. Current interpretive data was last revised on 2019. Blood 11/04/2024 6:03 AM CDT 11/04/2024 6:22 AM CDT Juliano Arredondo MD LAB BLOOD ORDERABLE S Final Result Performing Organization Address [facility] Co de Phone Number [facility] [place] [address] * (ABNORMAL) CBC without differential (11/04/2024 6:03 AM CDT) WBC 5.43 3.80 - 9.90 K/cumm Hgb 9.3(L) 11.9 - 15.5 g/dL [facility] Hct 26.3(L) 35.6 - 45.5 % [facility] Plt 110(L) 150 - 400 K/cumm [facility] MPV 11.2 9.1 - 12.3 fL [facility] RBC 2.68(L) 3.90 - 5.20 M/cumm [facility] MCV 98.1(H) 81.3 - 96.4 fL [facility] MCH 34.7(H) 27.1 - 33.3 pg [facility] MCHC 35.4 32.3 - 35.7 g/dL [facility] RDW CV 15.4(H) 11.1 - 14.9 % [facility] RDW SD 54.5(H) 35.7 - 48.1 fL [facility] NRBC abs 0.00 0.00 - 0.01 K/cumm [facility] Blood 11/04/2024 6:03 AM CDT 11/04/2024 6:23 AM CDT Juliano Arredondo MD LAB BLOOD ORDERABLE S Final Result Performing Organization Address City/[facility]/ZIP Co de Phone Number [facility] [place] [address] * Phosphorus (11/04/2024 6:03 AM CDT) Phosphorus, pl 3.8 2.3 - 4.5 mg/dL Blood 11/04/2024 6:03 AM CDT 11/04/2024 6:24 AM CDT Mar George MD LAB BLOOD OR DERABLES Final Result Performing Organization Address City/[facility] Co de Phone Number [facility] Department [place] [address] * Magnesium (11/04/2024 6:03 AM CDT) Pathologist [facility] Magnesium 1.8 1.4 - 2.5 mg/dL Blood 11/04/2024 6:03 AM CDT 11/04/2024 6:24 AM CDT Mar George MD LAB BLOOD OR DERABLES Final Result Performing Organization Address [facility] de Phone Number [facility] Department [place] [address] * Acetaminophen level (11/04/2024 6:03 AM CDT) Pathologist [facility] Acetaminophen 5 <=5 mcg/mL Comment: Interpretive Data Significant hepatic injury may occur and treatment with n-acetyl cysteine is generally recommended if the acetaminophen level exceeds: 150 mcg/mL at 4 hours after ingestion 75 mcg/mL at 8 hours after ingestion 38 mcg/mL at 12 hours after ingestion 19 mcg/mL at 16 hours after ingestion Consult toxicology or poison control ([phone]) for unknown ingestion time. Current interpretive data was last revised 2023. Blood 11/04/2024 6:03 AM CDT 11/04/2024 6:24 AM CDT Juliano Arredondo MD LAB BLOOD ORDERABLE S Final Result Performing Organization Address City/[facility] Co de Phone Number [facility] Department [place] [address] * (ABNORMAL) Hepatic function panel (11/04/2024 6:03 AM CDT) Pathologist [facility] Bilirubin, total 1.9(H) 0.1 - 1.2 mg/dL Bilirubin, direct 1.5(H) 0.1 - 0.3 mg/dL [facility] Protein, pl 4.3(L) 6.5 - 8.5 g/dL [facility] Albumin 1.8(L) 3.5 - 5.0 g/dL [facility] Alk phos 250(H) 40 - 130 Units/L [facility] ALT 562(H) 7 - 45 Units/L [facility] AST 1,170(H) 10 - 45 Units/L [facility] Blood 11/04/2024 6:03 AM CDT 11/04/2024 6:24 AM CDT Mar George MD LAB BLOOD OR DERABLES Final Result [facility] Department [place] [address] * (ABNORMAL) Basic metabolic panel (11/04/2024 6:03 AM CDT) Pathologist [facility] Sodium 136 135 - 145 mmol/L Potassium, pl 4.4 3.3 - 4.9 mmol/L [facility] Chloride 99 97 - 110 mmol/L [facility] CO2 25 22 - 32 mmol/L [facility] Anion gap 12 2 - 15 mmol/L [facility] BUN 4(L) 6 - 25 mg/dL [facility] Creatinine 0.40(L) 0.60 - 1.10 mg/dL [facility] Glucose 59(L) 70 - 199 mg/dL [facility] Comment: Interpretive Data Fasting glucose >/= 126 [...] 2022. Calcium 7.7(L) 8.5 - 10.3 mg/dL [facility] Blood 11/04/2024 6:03 AM CDT 11/04/2024 6:24 AM CDT us Mar George MD LAB BLOOD OR DERABLES Final Result [facility] Department [place] [address] * POCT glucose (11/04/2024 12:23 AM CDT) Pathologist [facility] Glucose, POC 102 70 - 199 mg/dL Blood 11/04/2024 12:2 3 AM CDT 11/04/2024 12:23 AM CDT us Juliano Arredondo MD LAB POCT ORDERABLES - DEVICE Final Result [facility] [place] [address] * eGFR (11/04/2024 12:02 AM CDT) Pathologist [facility] eGFR >90 >=60 mL/min/1. 73 m2 Comment: [...] OR DERABLES Final Result Performing Organization Address City/[facility] Co de Phone Number [facility] Department of [place] [address] * Phosphorus (11/04/2024 12:02 AM CDT) Phosphorus, pl 3.8 2.3 - 4.5 mg/dL Blood 11/04/2024 12:0 2 AM CDT 11/04/2024 12:34 AM CDT Mar George MD LAB BLOOD OR DERABLES Final Result Performing Organization Address [facility] Co de Phone Number [facility] [place] [address] * Magnesium (11/04/2024 12:02 AM CDT) Magnesium 2.3 1.4 - 2.5 mg/dL Blood 11/04/2024 12:0 2 AM CDT 11/04/2024 12:34 AM CDT Mar George MD LAB BLOOD OR DERABLES Final Result Performing Organization Address City/[facility] Co de Phone Number [facility] [place] [address] * (ABNORMAL) Basic metabolic panel (11/04/2024 12:02 AM CDT) [facility] Signature Sodium 139 135 - 145 mmol/L Potassium, pl 3.7 3.3 - 4.9 mmol/L [facility] Chloride 102 97 - 110 mmol/L [facility] CO2 27 22 - 32 mmol/L [facility] Anion gap 10 2 - 15 mmol/L [facility] BUN 5(L) 6 - 25 mg/dL [facility] Creatinine 0.41(L) 0.60 - 1.10 mg/dL [facility] Glucose 84 70 - 199 mg/dL [facility] Comment: Interpretive Data Fasting glucose >/= 126 [...] 2022. Calcium 7.8(L) 8.5 - 10.3 mg/dL [facility] Blood 11/04/2024 12:0 2 AM CDT 11/04/2024 12:34 AM CDT us Mar George MD LAB BLOOD OR DERABLES Final Result [facility] [place] [address] * US Abdomen Complete W Liver Doppler [...] it. Electronically signed by: Rohini Graf M.D. us Juliano Arredondo MD IMG US PROCEDURES F inal Result * POCT glucose (11/03/2024 9:01 PM CDT) Glucose, POC 88 70 - 199 mg/dL Blood 11/03/2024 9:01 PM CDT 11/03/2024 9:01 PM CDT us Juliano Arredondo MD LAB POCT ORDERABLES - DEVICE Final Result Performing Organization Address City/[facility] Co de Phone Number [facility] [place] [address] * eGFR (11/03/2024 4:10 PM CDT) eGFR [...] OR DERABLES Final Result Performing Organization Address City/[facility]/ZIP Co de Phone Number [facility] [place] [address] * Phosphorus (11/03/2024 4:10 PM CDT) Pathologist [facility] Phosphorus, pl 3.2 2.3 - 4.5 mg/dL Blood 11/03/2024 4:10 PM CDT 11/03/2024 4:18 PM CDT Mar George MD LAB BLOOD OR DERABLES Final Result Performing Organization Address City/[facility] Co de Phone Number [facility] [place] [address] * Magnesium (11/03/2024 4:10 PM CDT) Pathologist [facility] Magnesium 1.7 1.4 - 2.5 mg/dL Blood 11/03/2024 4:10 PM CDT 11/03/2024 4:18 PM CDT Mar George MD LAB BLOOD OR DERABLES Final Result Performing Organization Address [facility] de Phone Number [facility] [place] [address] * (ABNORMAL) Basic metabolic panel (11/03/2024 4:10 PM CDT) Pathologist [facility] Sodium 137 135 - 145 mmol/L Potassium, pl 4.6 3.3 - 4.9 mmol/L [facility] Chloride 102 97 - 110 mmol/L [facility] CO2 28 22 - 32 mmol/L [facility] Anion gap 7 2 - 15 mmol/L [facility] BUN 8 6 - 25 mg/dL [facility] Creatinine 0.53(L) 0.60 - 1.10 mg/dL [facility] Glucose 98 70 - 199 mg/dL [facility] Comment: Interpretive Data Fasting glucose >/= 126 [...] 2022. Calcium 7.6(L) 8.5 - 10.3 mg/dL [facility] Blood 11/03/2024 4:10 PM CDT 11/03/2024 4:18 PM CDT Result [facility] Mar George MD LAB BLOOD OR DERABLES Final Result Performing Organization Address [facility] de Phone Number [facility] [place] [address] * KATEY ab ql w/rflx to KATEY qn (11/03/2024 2:31 PM CDT) [facility]ATE[facility] Negative Comment: Interpretive Data Normal range [...] OR DERABLES Final Result Performing Organization Address [facility] de Phone Number [facility] [place] [address] * Smooth muscle antibody, qualitative (11/03/2024 2:31 PM CDT) Anti-smooth muscle Negative Negative Blood 11/03/2024 2:31 PM CDT 11/03/2024 2:39 PM CDT Mar George MD LAB BLOOD OR DERABLES Final Result Performing Organization Address [facility] Co de Phone Number [facility] [place] [address] * Mitochondrial antibodies, qualitative (11/03/2024 2:31 PM CDT) Pathologist [facility] Anti-mitochond rial Negative Negative Blood 11/03/2024 2:31 PM CDT 11/03/2024 2:38 PM CDT Mar George MD LAB BLOOD OR DERABLES Final Result Performing Organization Address [facility] de Phone Number [facility] [place] [address] * Hepatitis panel, acute Blood (11/03/2024 2:31 PM CDT) Pathologist [facility] Hep A IgM Nonreactive Nonreactive Hep B core IgM Nonreactive Nonreactive [facility] Hep C Ab Nonreactive Nonreactive [facility] Comment:Antibodies to HCV no t detected. Does NOT exclude the possibility of recent exposure to HCV. Current interpretive data was last revised on 22 HepBsAg Nonreactive Nonreactive [facility] Blood 11/03/2024 2:31 PM CDT 11/03/2024 2:38 PM CDT Mar George MD LAB MICROBIOLOGY - GENERAL ORDERABLES Final Result Performing Organization Address [facility] Co de Phone Number [facility] [place] [address] * (ABNORMAL) Protime-INR (11/03/2024 2:31 PM CDT) PT 17.4(H) 9.7 - 13.0 sec INR 1.60(H) 0.90 - 1.20 [facility] Comment: Interpretive data Oral anticoagulant therapeutic ranges: Venous thromboembolism prophylaxis or treatment: 2.0-3.0 CARDIOLOGY Standard range: 2.0-3.0 High-intensity range: 2.5-3.5 Refer to indication-specific guidelines for appropriate target ranges for prosthetic heart valve replacement. Current interpretive data was last revised on 2019. Blood 11/03/2024 2:31 PM CDT 11/03/2024 2:40 PM CDT Mar George MD LAB BLOOD OR DERABLES Final Result Performing Organization Address City/[facility] Co de Phone Number [facility] [place] [address] * (ABNORMAL) Hepatic function panel (11/03/2024 2:31 PM CDT) Bilirubin, total 1.9(H) 0.1 - 1.2 mg/dL Bilirubin, direct 1.4(H) 0.1 - 0.3 mg/dL [facility] Protein, pl 4.2(L) 6.5 - 8.5 g/dL [facility] Albumin 1.9(L) 3.5 - 5.0 g/dL [facility] Alk phos 233(H) 40 - 130 Units/L [facility] ALT 730(H) 7 - 45 Units/L [facility] AST 2,285(H) 10 - 45 Units/L [facility] Blood 11/03/2024 2:31 PM CDT 11/03/2024 2:38 PM CDT Mar George MD LAB BLOOD OR DERABLES Final Result Performing Organization Address City/[facility]/ZIP Co de Phone Number [facility] [place] [address] * ECG 12 lead (11/03/2024 12:35 PM CDT) Ventricular Rate EKG/Min 94 BPM [facility] Atrial Rate 94 BPM [facility] GA-Interval (MSEC) 110 ms [facility] QRS-Interval (MSEC) 68 ms [facility] QT-Interval (MSEC) 378 ms [facility] QTc 472 ms [facility] P [place] 42 degrees [facility] R [place] 59 degrees [facility] T [place] -37 degrees [facility] Diagnosis Sinus rhythm with short GA T wave abnormality, consider lateral ischemia Prolonged QT Abnormal ECG When compared with ECG of 02-NOV-2024 06:38, Inverted T waves have replaced nonspecific T wave abnormality in Lateral leads Confirmed by SHALINI RODRIGUEZ M.D ([id number]) on 11/05/2024 10:36:23 PM [facility] 11/03/2024 12:3 5 PM CDT 11/05/2024 10:36 PM CDT Juliano Arredondo MD ECG ORDERABLES Fin al Result [facility] * eGFR (11/03/2024 8:33 AM CDT) eGFR [...] OR DERABLES Final Result Performing Organization Address City/[facility]/ZIP Co de Phone Number [facility] [place] [address] * (ABNORMAL) Iron profile w/ IBC (11/03/2024 8:33 AM CDT) [facility] Iron 69 35 - 145 mcg/dL TIBC 101(L) 250 - 400 mcg/dL [facility] Transferrin saturation 68(H) 20 - 50 % [facility] Blood 11/03/2024 8:33 AM CDT 11/03/2024 9:20 AM CDT Mar George MD LAB BLOOD OR DERABLES Final Result Performing Organization Address [facility] Co de Phone Number [facility] Department [place] [address] * (ABNORMAL) CBC without differential (11/03/2024 8:33 AM CDT) [facility] WBC 4.86 3.80 - 9.90 K/cumm Hgb 9.5(L) 11.9 - 15.5 g/dL [facility] Hct 27.5(L) 35.6 - 45.5 % [facility] Plt 87(L) 150 - 400 K/cumm [facility] MPV 12.2 9.1 - 12.3 fL [facility] RBC 2.77(L) 3.90 - 5.20 M/cumm [facility] MCV 99.3(H) 81.3 - 96.4 fL [facility] MCH 34.3(H) 27.1 - 33.3 pg [facility] MCHC 34.5 32.3 - 35.7 g/dL [facility] RDW CV 15.2(H) 11.1 - 14.9 % [facility] RDW SD 55.1(H) 35.7 - 48.1 fL [facility] NRBC abs 0.00 0.00 - 0.01 K/cumm [facility] Blood 11/03/2024 8:33 AM CDT 11/03/2024 9:19 AM CDT Mar George MD LAB BLOOD OR DERABLES Final Result [facility] [place] [address] * Phosphorus (11/03/2024 8:33 AM CDT) Phosphorus, pl 2.7 2.3 - 4.5 mg/dL Blood 11/03/2024 8:33 AM CDT 11/03/2024 9:20 AM CDT Mar George MD LAB BLOOD OR DERABLES Final Result Performing Organization Address [facility] Co de Phone Number [facility] [place] [address] * Magnesium (11/03/2024 8:33 AM CDT) Magnesium 2.3 1.4 - 2.5 mg/dL Blood 11/03/2024 8:33 AM CDT 11/03/2024 9:20 AM CDT Mar George MD LAB BLOOD OR DERABLES Final Result Performing Organization Address City/[facility] Co de Phone Number [facility] [place] [address] * (ABNORMAL) Ferritin (11/03/2024 8:33 AM CDT) Ferritin 7,953(H) 13 - 150 ng/mL Blood 11/03/2024 8:33 AM CDT 11/03/2024 9:20 AM CDT Mar George MD LAB BLOOD OR DERABLES Final Result Performing Organization Address [facility] Co de Phone Number [facility] [place] [address] * Creatine kinase (CK), total (11/03/2024 8:33 AM CDT) CK 72 30 - 200 Units/L Blood 11/03/2024 8:33 AM CDT 11/03/2024 9:20 AM CDT Mar George MD LAB BLOOD OR DERABLES Final Result Performing Organization Address [facility] de Phone Number [facility] [place] [address] * (ABNORMAL) Acetaminophen level (11/03/2024 8:33 AM [...] after ingestion Consult toxicology or poison control ([phone]) for unknown ingestion time. Current interpretive data was last revised 2023. Blood 11/03/2024 8:33 AM CDT 11/03/2024 9:20 AM CDT Mar George MD LAB BLOOD OR DERABLES Final Result Performing Organization Address [facility] [place] [address] * (ABNORMAL) Hepatic function panel (11/03/2024 8:33 AM CDT) Pathologist [facility] Bilirubin, total 1.6(H) 0.1 - 1.2 mg/dL Bilirubin, direct 1.2(H) 0.1 - 0.3 mg/dL [facility] Comment:Reviewed Protein, pl 4.1(L) 6.5 - 8.5 g/dL [facility] Albumin 1.9(L) 3.5 - 5.0 g/dL [facility] Alk phos 207(H) 40 - 130 Units/L [facility] ALT 730(H) 7 - 45 Units/L [facility] Comment:Repeated on Dilution AST 2,754(H) 10 - 45 Units/L [facility] Comment:Repeated on Dilution Blood 11/03/2024 8:33 AM CDT 11/03/2024 9:20 AM CDT Mar George MD LAB BLOOD OR DERABLES Final Result [facility] Department [place] [address] * (ABNORMAL) Basic metabolic panel (11/03/2024 8:33 AM CDT) [facility] Sodium 136 135 - 145 mmol/L Potassium, pl 4.4 3.3 - 4.9 mmol/L [facility] Chloride 100 97 - 110 mmol/L [facility] CO2 28 22 - 32 mmol/L [facility] Anion gap 8 2 - 15 mmol/L [facility] BUN 8 6 - 25 mg/dL [facility] Creatinine 0.57(L) 0.60 - 1.10 mg/dL [facility] Glucose 97 70 - 199 mg/dL [facility] Comment: Interpretive Data Fasting glucose >/= 126 [...] 2022. Calcium 7.4(L) 8.5 - 10.3 mg/dL [facility] Blood 11/03/2024 8:33 AM CDT 11/03/2024 9:20 AM CDT us Mar George MD LAB BLOOD OR DERABLES Final Result [facility] [place] [address] * eGFR (11/03/2024 12:15 AM CDT) eGFR >90 >=60 mL/min/1. 73 [...] 5 AM CDT 11/03/2024 1:51 AM CDT us Mar George MD LAB BLOOD OR DERABLES Final Result [facility] Department [place] [address] * Phosphorus (11/03/2024 12:15 AM CDT) [facility] Phosphorus, pl 2.9 2.3 - 4.5 mg/dL Blood 11/03/2024 12:1 5 AM CDT 11/03/2024 1:51 AM CDT Mar George MD LAB BLOOD OR DERABLES Final Result Performing Organization Address [facility] Co de Phone Number [facility] Department [place] [address] * Magnesium (11/03/2024 12:15 AM CDT) [facility] Magnesium 1.9 1.4 - 2.5 mg/dL Blood 11/03/2024 12:1 5 AM CDT 11/03/2024 1:51 AM CDT Mar George MD LAB BLOOD OR DERABLES Final Result Performing Organization Address [facility] de Phone Number [facility] Department [place] [address] * (ABNORMAL) Basic metabolic panel (11/03/2024 12:15 AM CDT) [facility] Sodium 136 135 - 145 mmol/L Potassium, pl 3.9 3.3 - 4.9 mmol/L [facility] Chloride 98 97 - 110 mmol/L [facility] CO2 29 22 - 32 mmol/L [facility] Anion gap 9 2 - 15 mmol/L [facility] BUN 8 6 - 25 mg/dL [facility] Creatinine 0.52(L) 0.60 - 1.10 mg/dL [facility] Glucose 89 70 - 199 mg/dL [facility] Comment: Interpretive Data Fasting glucose >/= 126 [...] 2022. Calcium 7.6(L) 8.5 - 10.3 mg/dL [facility] Blood 11/03/2024 12:1 5 AM CDT 11/03/2024 1:51 AM CDT Mar George MD LAB BLOOD OR DERABLES Final Result [facility] [place] [address] * eGFR (11/02/2024 4:06 PM CDT) eGFR >90 >=60 mL/min/1. 73 [...] OR DERABLES Final Result Performing Organization Address City/[facility] Co de Phone Number [facility] [place] [address] * Phosphorus (11/02/2024 4:06 PM CDT) [facility] Phosphorus, pl 2.7 2.3 - 4.5 mg/dL Blood 11/02/2024 4:06 PM CDT 11/02/2024 4:29 PM CDT Mar George MD LAB BLOOD OR DERABLES Final Result Performing Organization Address [facility] de Phone Number [facility] [place] [address] * Magnesium (11/02/2024 4:06 PM CDT) [facility] Magnesium 1.6 1.4 - 2.5 mg/dL Blood 11/02/2024 4:06 PM CDT 11/02/2024 4:29 PM CDT Result [facility] Mar George MD LAB BLOOD OR DERABLES Final Result Performing Organization Address [facility] Co de Phone Number [facility] [address] * (ABNORMAL) Basic metabolic panel (11/02/2024 4:06 PM CDT) [facility] Sodium 137 135 - 145 mmol/L Potassium, pl 4.1 3.3 - 4.9 mmol/L [facility] Comment:Repeated and Verifie d Chloride 100 97 - 110 mmol/L [facility] CO2 29 22 - 32 mmol/L [facility] Anion gap 8 2 - 15 mmol/L [facility] BUN 9 6 - 25 mg/dL [facility] Creatinine 0.56(L) 0.60 - 1.10 mg/dL [facility] Glucose 118 70 - 199 mg/dL [facility] Comment: Interpretive Data Fasting glucose >/= 126 [...] 2022. Calcium 7.5(L) 8.5 - 10.3 mg/dL [facility] Blood 11/02/2024 4:06 PM CDT 11/02/2024 4:29 PM CDT Mar George MD LAB BLOOD OR DERABLES Final Result [facility] Department [place] [address] * eGFR (11/02/2024 7:53 AM CDT) eGFR >90 >=60 mL/min/1. 73 [...] MD LAB BLOOD OR DERABLES Final Result [facility] [place] [address] * (ABNORMAL) CBC without differential (11/02/2024 7:53 AM CDT) WBC 3.44(L) 3.80 - 9.90 K/cumm Hgb 10.0(L) 11.9 - 15.5 g/dL [facility] Hct 29.2(L) 35.6 - 45.5 % [facility] Plt 120(L) 150 - 400 K/cumm [facility] MPV 11.9 9.1 - 12.3 fL [facility] RBC 2.88(L) 3.90 - 5.20 M/cumm [facility] MCV 101.4(H) 81.3 - 96.4 fL [facility] MCH 34.7(H) 27.1 - 33.3 pg [facility] MCHC 34.2 32.3 - 35.7 g/dL [facility] RDW CV 15.0(H) 11.1 - 14.9 % [facility] RDW SD 54.9(H) 35.7 - 48.1 fL [facility] NRBC abs 0.00 0.00 - 0.01 K/cumm [facility] Blood 11/02/2024 7:53 AM CDT 11/02/2024 8:07 AM CDT us Mar George MD LAB BLOOD OR DERABLES Final Result [facility] [place] [address] * Phosphorus (11/02/2024 7:53 AM CDT) [facility] Phosphorus, pl 2.7 2.3 - 4.5 mg/dL Comment:Hemolyzed; result ma y be falsely elevated Blood 11/02/2024 7:53 AM CDT 11/02/2024 8:07 AM CDT Mar George MD LAB BLOOD OR DERABLES Final Result [facility] [place] [address] * Magnesium (11/02/2024 7:53 AM CDT) [facility] Magnesium 2.1 1.4 - 2.5 mg/dL Blood 11/02/2024 7:53 AM CDT 11/02/2024 8:07 AM CDT Mar George MD LAB BLOOD OR DERABLES Final Result [facility] [place] [address] * (ABNORMAL) Hepatic function panel (11/02/2024 7:53 AM CDT) [facility] Bilirubin, total 0.9 0.1 - 1.2 mg/dL Bilirubin, direct See Comment 0.1 - 0.3 mg/dL [facility] Comment: Credited; Hemolyzed Specimen Reviewed Protein, pl 4.9(L) 6.5 - 8.5 g/dL [facility] Albumin 2.1(L) 3.5 - 5.0 g/dL [facility] Alk phos 137(H) 40 - 130 Units/L [facility] Comment:Hemolyzed; result ma y be falsely decreased ALT See Comment 7 - 45 Units/L [facility] Comment: Credited; Hemolyzed Specimen Reviewed AST See Comment 10 - 45 Units/L [facility] Comment: Credited; Hemolyzed Specimen Reviewed Blood 11/02/2024 7:53 AM CDT 11/02/2024 8:07 AM CDT Mar George MD LAB BLOOD OR DERABLES Final Result [facility] [place] [address] * (ABNORMAL) Basic metabolic panel (11/02/2024 7:53 AM CDT) Sodium 133(L) 135 - 145 mmol/L Potassium, pl See Comment 3.3 - 4.9 mmol/L [facility] Comment: Credited; Hemolyzed Specimen Repeated and Verified Chloride 100 97 - 110 mmol/L [facility] CO2 28 22 - 32 mmol/L [facility] Anion gap 5 2 - 15 mmol/L [facility] BUN 10 6 - 25 mg/dL [facility] Creatinine 0.62 0.60 - 1.10 mg/dL [facility] Glucose 105 70 - 199 mg/dL [facility] Comment: Interpretive Data Fasting glucose >/= 126 [...] 2022. Calcium 8.2(L) 8.5 - 10.3 mg/dL [facility] Blood 11/02/2024 7:53 AM CDT 11/02/2024 8:07 AM CDT Mar George MD LAB BLOOD OR DERABLES Final Result [facility] [place] [address] * ECG 12 lead (11/02/2024 6:38 AM CDT) Ventricular Rate EKG/Min 78 BPM [facility] Atrial Rate 78 BPM [facility] GA-Interval (MSEC) 122 ms [facility] QRS-Interval (MSEC) 66 ms [facility] QT-Interval (MSEC) 412 ms [facility] QTc 469 ms [facility] P [place] 47 degrees [facility] R [place] 41 degrees [facility] T [place] 33 degrees [facility] Diagnosis Normal sinus rhythm Low voltage: consider pericardial effusions, pulmonary disease, pleural effusion, obesity or infiltrative or dilated cardiomyop Nonspecific T wave abnormality Abnormal ECG When compared with ECG of 01-NOV-2024 06:33, (unconfirmed) No significant change was found Confirmed by BILLY CHACKO M.D ([id number]) on 11/02/2024 1:01:09 PM [facility] 11/02/2024 6:38 AM CDT 11/02/2024 1:01 PM CDT us Juliano Arredondo MD ECG ORDERABLES Fin al Result Performing Organization Address City/[facility]/ZIP Co de Phone Number [facility] * eGFR (11/01/2024 11:50 PM CDT) eGFR [...] MD LAB BLOOD OR DERABLES Final Result [facility] [place] [address] * Phosphorus (11/01/2024 11:50 PM CDT) Phosphorus, pl 2.4 2.3 - 4.5 mg/dL Blood 11/01/2024 11:5 0 PM CDT 11/02/2024 1:50 AM CDT Mar George MD LAB BLOOD OR DERABLES Final Result Performing Organization Address City/[facility] Co de Phone Number [facility] [place] [address] * (ABNORMAL) Magnesium (11/01/2024 11:50 PM CDT) Magnesium 3.2(H) 1.4 - 2.5 mg/dL Comment:Reviewed Blood 11/01/2024 11:5 0 PM CDT 11/02/2024 1:50 AM CDT Mar George MD LAB BLOOD OR DERABLES Final Result [facility] [place] [address] * (ABNORMAL) Basic metabolic panel (11/01/2024 11:50 PM CDT) Pathologist [facility] Sodium 136 135 - 145 mmol/L Potassium, pl 3.5 3.3 - 4.9 mmol/L [facility] Chloride 99 97 - 110 mmol/L [facility] CO2 28 22 - 32 mmol/L [facility] Anion gap 9 2 - 15 mmol/L [facility] BUN 11 6 - 25 mg/dL [facility] Creatinine 0.69 0.60 - 1.10 mg/dL [facility] Glucose 86 70 - 199 mg/dL [facility] Comment: Interpretive Data Fasting glucose >/= 126 [...] 2022. Calcium 7.7(L) 8.5 - 10.3 mg/dL [facility] Blood 11/01/2024 11:5 0 PM CDT 11/02/2024 1:50 AM CDT Mar George MD LAB BLOOD OR DERABLES Final Result [facility] Department [place] [address] * (ABNORMAL) Copper, serum (11/01/2024 8:27 PM CDT) Pathologist [facility] Copper 64(L) 77 - 206 mcg/dL [facility] Comment: ADDITIONAL INFORMATION This test was developed and its performance characteristics determined by [facility] in a manner consistent with CLIA requirements. This test has not been cleared or approved by the U.S. Food and Drug Administration. Test Performed by: [facility] - [facility] [address] [place] [address] Sizer Hand: Kimberley Hurtado Ph.D.; CLIA# [id number] Blood 11/01/2024 8:27 PM CDT 11/01/2024 10:06 PM CDT Narrative [facility] - 11/05/2024 11:58 AM CDT sent 2.0 mls metal free serum us Evonne Baer MD LAB BLOOD ORDERABLES Krystyna meyers Result [facility] Department [place] [address] [place] [facility] * (ABNORMAL) CBC without differential (11/01/2024 8:27 PM CDT) WBC 3.66(L) 3.80 - 9.90 K/cumm Hgb 9.3(L) 11.9 - 15.5 g/dL [facility] Hct 27.1(L) 35.6 - 45.5 % [facility] Plt 83(L) 150 - 400 K/cumm [facility] MPV 11.7 9.1 - 12.3 fL [facility] RBC 2.69(L) 3.90 - 5.20 M/cumm [facility] MCV 100.7(H) 81.3 - 96.4 fL [facility] MCH 34.6(H) 27.1 - 33.3 pg [facility] MCHC 34.3 32.3 - 35.7 g/dL [facility] RDW CV 15.1(H) 11.1 - 14.9 % [facility] RDW SD 55.7(H) 35.7 - 48.1 fL [facility] NRBC abs 0.00 0.00 - 0.01 K/cumm [facility] Blood 11/01/2024 8:27 PM CDT 11/01/2024 9:48 PM CDT Mar George MD LAB BLOOD OR DERABLES Final Result [facility] [place] [address] * Immature platelet fraction (11/01/2024 5:28 PM CDT) Pathologist [facility] IPF 6.6 1.6 - 10.1 % Blood 11/01/2024 5:28 PM CDT 11/01/2024 6:47 PM CDT Mar George MD LAB BLOOD OR DERABLES Final Result Performing Organization Address [facility] de Phone Number [facility] Department [place] [address] * eGFR (11/01/2024 5:28 PM CDT) [facility] eGFR >90 >=60 mL/min/1. 73 m2 Comment: [...] MD LAB BLOOD OR DERABLES Final Result [facility] Department [place] [address] * (ABNORMAL) Differential, auto (11/01/2024 5:28 PM CDT) Neutrophil abs 1.02(L) 1.50 - 6.50 K/cumm Imm gran abs 0.01 0.00 - 0.10 K/cumm [facility] Lymphocyte abs 0.87 0.80 - 3.30 K/cumm [facility] Monocyte abs 0.03(L) 0.20 - 0.80 K/cumm [facility] Eosinophil abs 0.01 0.00 - 0.50 K/cumm [facility] Basophil abs 0.01 0.00 - 0.10 K/cumm [facility] Neutrophil pct 52.4 % [facility] Comment: Interpretive Data Percent cell count reference ranges are not reported, since discordance with absolute values may lead to misinterpretation of CBC data. Current Interpretive Data was last revised on 2017. Imm gran pct 0.5 % [facility] Comment: Interpretive Data Percent cell count reference ranges are not reported, since discordance with absolute values may lead to misinterpretation of CBC data. Current Interpretive Data was last revised on 2017. Lymphocyte pct 44.6 % [facility] Comment: Interpretive Data Percent cell count reference ranges are not reported, since discordance with absolute values may lead to misinterpretation of CBC data. Current Interpretive Data was last revised on 2017. Monocyte pct 1.5 % [facility] Comment: Interpretive Data Percent cell count reference ranges are not reported, since discordance with absolute values may lead to misinterpretation of CBC data. Current Interpretive Data was last revised on 2017. Eosinophil pct 0.5 % [facility] Comment: Interpretive Data Percent cell count reference ranges are not reported, since discordance with absolute values may lead to misinterpretation of CBC data. Current Interpretive Data was last revised on 2017. Basophil pct 0.5 % [facility] Comment: Interpretive Data Percent cell count reference ranges are not reported, since discordance with absolute values may lead to misinterpretation of CBC data. Current Interpretive Data was last revised on 2017. Blood 11/01/2024 5:28 PM CDT 11/01/2024 6:44 PM CDT Mar George MD LAB BLOOD OR DERABLES Final Result [facility] Department [place] [address] * (ABNORMAL) CBC with auto differential (11/01/2024 5:28 PM CDT) WBC 1.98(L) 3.80 - 9.90 K/cumm Hgb 9.8(L) 11.9 - 15.5 g/dL [facility] Hct 28.5(L) 35.6 - 45.5 % [facility] Plt 21(C) 150 - 400 K/cumm [facility] Comment:No clot detected in sample. Platelet count confirmed by additional testing. Critical platelet count threshold determined by patient location: Outpatient:<50 K/cumm , Inpatient adults:<20 K/cumm , Inpatient pediatric:<25 K/cumm, BMT service:<10 K/cumm MPV 12.2 9.1 - 12.3 fL [facility] RBC 2.81(L) 3.90 - 5.20 M/cumm [facility] MCV 101.4(H) 81.3 - 96.4 fL [facility] MCH 34.9(H) 27.1 - 33.3 pg [facility] MCHC 34.4 32.3 - 35.7 g/dL [facility] RDW CV 15.0(H) 11.1 - 14.9 % [facility] RDW SD 56.0(H) 35.7 - 48.1 fL [facility] NRBC abs 0.00 0.00 - 0.01 K/cumm [facility] Blood 11/01/2024 5:28 PM CDT 11/01/2024 6:44 PM CDT Mar George MD LAB BLOOD OR DERABLES Final Result Performing Organization Address [facility] Co de Phone Number [facility] [place] [address] * Phosphorus (11/01/2024 5:28 PM CDT) [facility] Phosphorus, pl 3.0 2.3 - 4.5 mg/dL Blood 11/01/2024 5:28 PM CDT 11/01/2024 6:43 PM CDT Mar George MD LAB BLOOD OR DERABLES Final Result Performing Organization Address [facility] Co de Phone Number [facility] [place] [address] * Magnesium (11/01/2024 5:28 PM CDT) [facility] Magnesium 1.5 1.4 - 2.5 mg/dL Blood 11/01/2024 5:28 PM CDT 11/01/2024 6:43 PM CDT Mar George MD LAB BLOOD OR DERABLES Final Result Performing Organization Address [facility] [place] [address] * (ABNORMAL) Basic metabolic panel (11/01/2024 5:28 PM CDT) [facility] Sodium 140 135 - 145 mmol/L Potassium, pl 3.7 3.3 - 4.9 mmol/L [facility] Chloride 102 97 - 110 mmol/L [facility] CO2 29 22 - 32 mmol/L [facility] Anion gap 9 2 - 15 mmol/L [facility] BUN 11 6 - 25 mg/dL [facility] Creatinine 0.78 0.60 - 1.10 mg/dL [facility] Glucose 85 70 - 199 mg/dL [facility] Comment: Interpretive Data Fasting glucose >/= 126 [...] 2022. Calcium 7.6(L) 8.5 - 10.3 mg/dL [facility] Blood 11/01/2024 5:28 PM CDT 11/01/2024 6:43 PM CDT us Mar George MD LAB BLOOD OR DERABLES Final Result [facility] [place] [address] * CT Chest W Contrast (11/01/2024 2:24 [...] by: Rebeca Walker M.D. Mar George MD [facility] [place] PROCE DURES Final Result * C. difficile testing Stool (11/01/2024 11:33 AM CDT) [facility] Result Negative Negative Toxin Result Negative Negative [facility] C. diff result Negative, free toxin Negative, free toxin [facility] C. diff interp Negative for toxigenic Clostridioides (Clostridium) difficile. Analysis was performed using a glutamate dehydrogenase antigen detection assay combined with a C. difficile toxin detection assay. [facility] Stool 11/01/2024 11:3 3 AM CDT 11/01/2024 1:15 PM CDT Mar George MD LAB MICROBIOLOGY - GENERAL ORDERABLES Final Result Performing Organization Address [facility] Co de Phone Number [facility] [place] [address] * (ABNORMAL) Infection Prevention VRE Culture Stool (11/01/2024 11:33 AM CDT) Report Final Report: Enterococcus species, vancomycin resistant (.) Organism ENTEROCOCCUS SPECIES, VANCOMYCIN RESISTANT [facility] Stool 11/01/2024 11:3 3 AM CDT 11/01/2024 2:56 PM CDT Narrative [facility] - 11/03/2024 10:12 PM CDT Surveillance culture for Infection Prevention purposes only; results indicate colonization, not infection requiring treatment. Testing performed by [facility] ([phone]). Mar George MD LAB MICROBIOLOGY - GENERAL ORDERABLES Final Result Performing Organization Address [facility] de Phone Number [facility] Department [place] [address] * TRANSTHORACIC ECHO (TTE) COMPLETE W DOPPLER/CF W CONTRAST (11/01/2024 10:52 AM CDT) Anatomical Region Laterality Modality Ultrasound 11/01/2024 10:0 2 AM CDT Narrative 11/01/2024 12:28 PM CDT [facility] [place] [address] Transthoracic Echocardiographic Report ADDENDUM Patient Name: HAYLEY LEÓN L : 1990 (34y 8m) Gender: F Study Date: 11/01/2024 10:02:50 AM Ht(Inch): 61 Wt(Lb): 87.96 BSA: 1.31 Flight Mechanic: Sofia Campos RDCS Location: [id number] Order Provider: ANGELA RAMIREZ Heart Rate: 90 [...] LA Length 2C 3.65 cm Med E` Alvrao 10.4 cm/sec [ 8.0 - 25.0 ] [...] Procedure Note Gustabo Mcdaniels MD - 11/01/2024 [facility] [place] [address] Transthoracic Echocardiographic Report ADDENDUM Patient Name: ROWAN Mira HARDY : 1990 (34y 8m) Gender: F Study Date: 11/01/2024 10:02:50 AM Ht(Inch): 61 Wt(Lb): 87.96 BSA: 1.31 Flight Mechanic: Sofiaemilio Campos [facility] Location: [id number] Order Provider:ANGELA RAMIREZ Heart Rate: 90 BMI: [...] LA Length 4C 3.24 cm MV Decel [id number] msec [ 104.00 - 258.00 ] LA [...] MD LAB BLOOD OR DERABLES Final Result [facility] Department [place] [address] * Phosphorus (11/01/2024 9:03 AM CDT) Phosphorus, pl 3.3 2.3 - 4.5 mg/dL Blood 11/01/2024 9:03 AM CDT 11/01/2024 10:23 AM CDT us Mar George MD LAB BLOOD OR DERABLES Final Result Performing Organization Address City/[facility]/ZIP Co de Phone Number [facility] Department [place] [address] * Magnesium (11/01/2024 9:03 AM CDT) [facility] Magnesium 2.0 1.4 - 2.5 mg/dL Blood 11/01/2024 9:03 AM CDT 11/01/2024 10:23 AM CDT us Mar George MD LAB BLOOD OR DERABLES Final Result Performing Organization Address [facility] Co de Phone Number [facility] [place] [address] * (ABNORMAL) Hepatic function panel (11/01/2024 9:03 AM CDT) [facility] Bilirubin, total 1.2 0.1 - 1.2 mg/dL Bilirubin, direct 0.7(H) 0.1 - 0.3 mg/dL [facility] Protein, pl 5.4(L) 6.5 - 8.5 g/dL [facility] Albumin 2.7(L) 3.5 - 5.0 g/dL [facility] Alk phos 133(H) 40 - 130 Units/L [facility] ALT 107(H) 7 - 45 Units/L [facility] AST 308(H) 10 - 45 Units/L [facility] Blood 11/01/2024 9:03 AM CDT 11/01/2024 10:23 AM CDT Mar George MD LAB BLOOD OR DERABLES Final Result Performing Organization Address City/[facility] Co de Phone Number [facility] Department [place] [address] * (ABNORMAL) Basic metabolic panel (11/01/2024 9:03 AM CDT) [facility] Sodium 143 135 - 145 mmol/L Potassium, pl 3.7 3.3 - 4.9 mmol/L [facility] Chloride 103 97 - 110 mmol/L [facility] CO2 27 22 - 32 mmol/L [facility] Anion gap 13 2 - 15 mmol/L [facility] BUN 11 6 - 25 mg/dL [facility] Creatinine 0.80 0.60 - 1.10 mg/dL [facility] Glucose 73 70 - 199 mg/dL [facility] Comment: Interpretive Data Fasting glucose >/= 126 [...] 2022. Calcium 8.2(L) 8.5 - 10.3 mg/dL [facility] Blood 11/01/2024 9:03 AM CDT 11/01/2024 10:23 AM CDT us Mar George MD LAB BLOOD OR DERABLES Final Result [facility] Department [place] [address] * ECG 12 lead (11/01/2024 6:33 AM CDT) [facility] Ventricular Rate EKG/Min 80 BPM [facility] Atrial Rate 80 BPM [facility] GA-Interval (MSEC) 108 ms [facility] QRS-Interval (MSEC) 50 ms [facility] QT-Interval (MSEC) 420 ms [facility] QTc 484 ms [facility] P [place] 79 degrees [facility] R [place] 55 degrees [facility] T [place] 59 degrees [facility] Diagnosis Sinus rhythm with short [place] Low voltage QRS Nonspecific ST and T wave abnormality Abnormal ECG Confirmed by Gustabo Mcdaniels MD ([id number]) on 11/02/2024 8:44:45 AM [facility] 11/01/2024 6:33 AM CDT 11/02/2024 8:44 AM CDT us Juliano Arredondo MD ECG ORDERABLES Fin al Result [facility] * eGFR (11/01/2024 12:24 AM CDT) eGFR [...] MD LAB BLOOD OR DERABLES Final Result [facility] [place] [address] * (ABNORMAL) Phosphorus (11/01/2024 12:24 AM CDT) Phosphorus, pl 1.4(L) 2.3 - 4.5 mg/dL Blood 11/01/2024 12:2 4 AM CDT 11/01/2024 12:43 AM CDT Mar George MD LAB BLOOD OR DERABLES Final Result Performing Organization Address City/[facility]/ZIP Co de Phone Number [facility] Department [place] [address] * Magnesium (11/01/2024 12:24 AM CDT) [facility] Magnesium 2.2 1.4 - 2.5 mg/dL Blood 11/01/2024 12:2 4 AM CDT 11/01/2024 12:43 AM CDT Mar George MD LAB BLOOD OR DERABLES Final Result Performing Organization Address City/[facility] de Phone Number [facility] Department [place] [address] * Basic metabolic panel (11/01/2024 12:24 AM CDT) [facility] Sodium 139 135 - 145 mmol/L Potassium, pl 4.3 3.3 - 4.9 mmol/L [facility] Comment:Hemolyzed; Potassium value may be falsely elevated by as much as 0.6-1.0 mmol/L. Suggest redraw and reanalysis. Chloride 105 97 - 110 mmol/L [facility] CO2 26 22 - 32 mmol/L [facility] Anion gap 8 2 - 15 mmol/L [facility] BUN 10 6 - 25 mg/dL [facility] Creatinine 0.80 0.60 - 1.10 mg/dL [facility] Glucose 88 70 - 199 mg/dL [facility] Comment: Interpretive Data Fasting glucose >/= 126 [...] 2022. Calcium 8.5 8.5 - 10.3 mg/dL [facility] Blood 11/01/2024 12:2 4 AM CDT 11/01/2024 12:43 AM CDT Mar George MD LAB BLOOD OR DERABLES Final Result [facility] Department [place] [address] * Norovirus PCR Stool (10/31/2024 5:27 PM CDT) Pathologist [facility] Norovirus GI RNA Not Detected Not Detected [facility] Norovirus GII RNA Not Detected Not Detected [facility] Comment: Interpretive data: Testing performed at the [facility] using the [employer] Xpert Norovirus Assay. This assay uses nucleic [...] GENERAL ORDERABLES Final Result Performing Organization Address [facility] Co de Phone Number [facility] Department [place] [address] [facility] * eGFR (10/31/2024 4:26 PM CDT) eGFR [...] OR DERABLES Final Result Performing Organization Address [facility] Co de Phone Number [facility] [place] [address] * (ABNORMAL) Vitamin A (10/31/2024 4:26 PM CDT) Pathologist [facility] Vitamin A 22.1(L) 32.5 - 78.0 mcg/dL [place] [facility] Comment: ADDITIONAL INFORMATION This test was developed and its performance characteristics determined by [facility] in a manner consistent with CLIA requirements. This test has not been cleared or approved by the U.S. Food and Drug Administration. Test Performed by: [facility] [address] Sizer Hand: Kimberley Hurtado Ph.D.; CLIA# [id number] Blood 10/31/2024 4:26 PM CDT 10/31/2024 6:25 PM CDT Mar George MD LAB BLOOD OR DERABLES Final Result Performing Organization Address [facility]/ZIP Co de Phone Number [facility] [place] [address] [place] ref [facility] * (ABNORMAL) Vitamin K (10/31/2024 4:26 PM CDT) Phylloquinone (Vit K) 0.04(L) 0.10 - 2.20 ng/mL [facility] Comment: ADDITIONAL INFORMATION This test was developed and its performance characteristics determined by [facility] in a manner consistent with CLIA requirements. This test has not been cleared or approved by the U.S. Food and Drug Administration. Test Performed by: [facility] - [address] [address] Sizer Hand: Kimberley Hurtado Ph.D.; CLIA# [id number] Blood 10/31/2024 4:26 PM CDT 10/31/2024 6:27 PM CDT Mar George MD LAB BLOOD OR DERABLES Final Result Performing Organization Address City/[facility]/ZIP Co de Phone Number [facility] [place] [address] [place] [facility] * (ABNORMAL) Vitamin D 25 hydroxy (10/31/2024 4:26 PM CDT) Pathologist [facility] Vitamin D 25-OH 9(L) 30 - 80 ng/mL Blood 10/31/2024 4:26 PM CDT 10/31/2024 6:04 PM CDT Mar George MD LAB BLOOD OR DERABLES Final Result Performing Organization Address City/[facility]/ZIP Co de Phone Number [facility] [place] [address] * (ABNORMAL) Phosphorus (10/31/2024 4:26 PM CDT) [facility] Phosphorus, pl 1.5(L) 2.3 - 4.5 mg/dL Blood 10/31/2024 4:26 PM CDT 10/31/2024 6:04 PM CDT Mar George MD LAB BLOOD OR DERABLES Final Result Performing Organization Address City/[facility] Co de Phone Number [facility] [place] [address] * Magnesium (10/31/2024 4:26 PM CDT) [facility] Magnesium 1.8 1.4 - 2.5 mg/dL Blood 10/31/2024 4:26 PM CDT 10/31/2024 6:04 PM CDT Mar George MD LAB BLOOD OR DERABLES Final Result Performing Organization Address City/[facility] Co de Phone Number [facility] [place] [place] [address] * Basic metabolic panel (10/31/2024 4:26 PM CDT) [facility] Sodium 142 135 - 145 mmol/L Potassium, pl 4.3 3.3 - 4.9 mmol/L [facility] Chloride 103 97 - 110 mmol/L [facility] CO2 30 22 - 32 mmol/L [facility] Anion gap 9 2 - 15 mmol/L [facility] BUN 9 6 - 25 mg/dL [facility] Creatinine 0.94 0.60 - 1.10 mg/dL [facility] Glucose 76 70 - 199 mg/dL [facility] Comment: Interpretive Data Fasting glucose >/= 126 [...] 2022. Calcium 9.7 8.5 - 10.3 mg/dL [facility] Blood 10/31/2024 4:26 PM CDT 10/31/2024 6:04 PM CDT Mar George MD LAB BLOOD OR DERABLES Final Result [facility] Department [place] [address] * XR Abdomen AP 1 Vw With [...] * Check Sample (10/31/2024 8:47 AM CDT) Pathologist [facility] ABO Rh A Positive [facility] HCLL OTHER 10/31/2024 8:47 AM CDT 10/31/2024 10:36 AM CDT Mar George MD LAB BLOOD OR DERABLES Final Result [facility] Department [place] [address] [facility] * Respiratory pathogen panel Nasopharyngeal (10/31/2024 8:47 AM CDT) [facility] Influenza A RNA Not Detected Not Detected Influenza B RNA Not Detected Not Detected [facility] RSV RNA Not Detected Not Detected [facility] COVID-19 RNA Not Detected Not Detected [facility] Coronavirus 229E RNA Not Detected Not Detected [facility] Coronavirus HKU1 RNA Not Detected Not Detected [facility] Coronavirus NL63 RNA Not Detected Not Detected [facility] Coronavirus OC43 RNA Not Detected Not Detected [facility] Adenovirus DNA Not Detected Not Detected [facility] Metapneumovirus RNA Not Detected Not Detected [facility] Rhinovirus/Enterov irus RNA Not Detected Not Detected [facility] Parainfluenza 1 RNA Not Detected Not Detected [facility] Parainfluenza 2 RNA Not Detected Not Detected [facility] Parainfluenza 3 RNA Not Detected Not Detected [facility] Parainfluenza 4 RNA Not Detected Not Detected [facility] B. pertussis DNA Not Detected Not Detected [facility] B. parapertussis DNA Not Detected Not Detected [facility] C. pneumoniae DNA Not Detected Not Detected [facility] M. pneumoniae DNA Not Detected Not Detected [facility] Nasopharyngeal 10/31/2024 8: 47 AM CDT 10/31/2024 9:05 AM CDT Narrative [facility] - 10/31/2024 10:37 AM CDT Is the Patient experiencing symptoms consistent with COVID?->Yes Surveillance testing for transplant patient?->No Interpretive Data The Lydia FilmArray Respiratory Panel (RP2.1) assay is a [...] assay has FDA clearance for testing of PATROL INSPECTOR swabs. The performance of additional specimen types has been assessed by the performing laboratory. The performance characteristics of this assay have been determined by [facility] Molecular Infectious Disease Laboratory. Current interpretive data was last revised on 22. Mar George MD LAB MICROBIOLOGY - GENERAL ORDERABLES Final Result [facility] Department [place] [address] * eGFR (10/31/2024 7:51 AM CDT) eGFR >90 >=60 mL/min/1. 73 [...] MD LAB BLOOD ORDERABLES Fin al Result [facility] Department [place] [address] * Differential, auto (10/31/2024 7:51 AM CDT) Neutrophil abs 4.89 1.50 - 6.50 K/cumm Imm gran abs 0.06 0.00 - 0.10 K/cumm [facility] Lymphocyte abs 0.81 0.80 - 3.30 K/cumm [facility] Monocyte abs 0.35 0.20 - 0.80 K/cumm [facility] Eosinophil abs 0.15 0.00 - 0.50 K/cumm [facility] Basophil abs 0.03 0.00 - 0.10 K/cumm [facility] Neutrophil pct 77.6 % [facility] Comment: Interpretive Data Percent cell count reference ranges are not reported, since discordance with absolute values may lead to misinterpretation of CBC data. Current Interpretive Data was last revised on 2017. Imm gran pct 1.0 % [facility] Comment: Interpretive Data Percent cell count reference ranges are not reported, since discordance with absolute values may lead to misinterpretation of CBC data. Current Interpretive Data was last revised on 2017. Lymphocyte pct 12.9 % [facility] Comment: Interpretive Data Percent cell count reference ranges are not reported, since discordance with absolute values may lead to misinterpretation of CBC data. Current Interpretive Data was last revised on 2017. Monocyte pct 5.6 % [facility] Comment: Interpretive Data Percent cell count reference ranges are not reported, since discordance with absolute values may lead to misinterpretation of CBC data. Current Interpretive Data was last revised on 2017. Eosinophil pct 2.4 % [facility] Comment: Interpretive Data Percent cell count reference ranges are not reported, since discordance with absolute values may lead to misinterpretation of CBC data. Current Interpretive Data was last revised on 2017. Basophil pct 0.5 % [facility] Comment: Interpretive Data Percent cell count reference ranges are not reported, since discordance with absolute values may lead to misinterpretation of CBC data. Current Interpretive Data was last revised on 2017. Blood 10/31/2024 7:51 AM CDT 10/31/2024 8:12 AM CDT us Angela Ramirez MD LAB BLOOD ORDERABLES Fin al Result Performing Organization Address [facility] Co de Phone Number [facility] [place] [address] * Critical Result Callback Chemistry (10/31/2024 7:51 AM CDT) Date Notified [id number] Time Notified 899 [facility] TestName Potassium Plas [facility] Called/Read Back Suni Kenvir [facility] Credentials RN [facility] Called By TP [facility] Blood 10/31/2024 7:51 AM CDT 10/31/2024 8:14 AM CDT us Angela Ramirez MD LAB BLOOD ORDERABLES Fin al Result Performing Organization Address [facility] de Phone Number [facility] Department [place] [address] * (ABNORMAL) Calcium, ionized (10/31/2024 7:51 AM CDT) Calcium, Ionized 4.37(L) 4.50 - 5.10 mg/dL Blood 10/31/2024 7:51 AM CDT 10/31/2024 8:12 AM CDT us Mar George MD LAB BLOOD OR DERABLES Final Result Performing Organization Address City/[facility] Co de Phone Number [facility] Department [place] [address] * (ABNORMAL) CBC with auto differential (10/31/2024 7:51 AM CDT) Pathologist [facility] WBC 6.29 3.80 - 9.90 K/cumm Hgb 11.4(L) 11.9 - 15.5 g/dL [facility] Hct 31.9(L) 35.6 - 45.5 % [facility] Plt 105(L) 150 - 400 K/cumm [facility] MPV 11.2 9.1 - 12.3 fL [facility] RBC 3.29(L) 3.90 - 5.20 M/cumm [facility] MCV 97.0(H) 81.3 - 96.4 fL [facility] MCH 34.7(H) 27.1 - 33.3 pg [facility] MCHC 35.7 32.3 - 35.7 g/dL [facility] RDW CV 15.0(H) 11.1 - 14.9 % [facility] RDW SD 53.2(H) 35.7 - 48.1 fL [facility] NRBC abs 0.00 0.00 - 0.01 K/cumm [facility] Blood 10/31/2024 7:51 AM CDT 10/31/2024 8:12 AM CDT Angela Ramirez MD LAB BLOOD ORDERABLES Fin al Result [facility] Department [place] [address] * Type and screen (10/31/2024 7:51 AM CDT) Pathologist [facility] ABO Rh A Positive Zach, indirect Negative [facility] Blood 10/31/2024 7:51 AM CDT 10/31/2024 8:20 AM CDT Narrative [facility] - 10/31/2024 9:24 AM CDT Has the patient had Daratumumab or Isatuximab in the past 6 months?->Unknown Mar George MD LAB BLOOD BA NK TEST ORDERABLES Final Result Performing Organization Address [facility] Co de Phone Number [facility] Department [place] [address] * Infection Prevention MRSA Only (Staphylococcus aureus) Culture Nasal (10/31/2024 7:51 AM CDT) Report Final Report: Negative Nasal 10/31/2024 7:51 AM CDT 10/31/2024 8:13 AM CDT Narrative [facility] - 11/01/2024 9:38 AM CDT Testing performed by [facility] ([phone]). Mar George MD LAB MICROBIOLOGY - GENERAL ORDERABLES Final Result Performing Organization Address [facility] de Phone Number [facility] Department [place] [address] * hCG, blood, quantitative (10/31/2024 7:51 AM [...] 7:51 AM CDT 10/31/2024 8:14 AM CDT Result [facility] Mar George MD LAB BLOOD OR DERABLES Final Result Performing Organization Address [facility] Co de Phone Number [facility] [place] [address] * Phosphorus (10/31/2024 7:51 AM CDT) Pathologist [facility] Phosphorus, pl 2.4 2.3 - 4.5 mg/dL Blood 10/31/2024 7:51 AM CDT 10/31/2024 8:14 AM CDT Angela Ramirez MD LAB BLOOD ORDERABLES Fin al Result Performing Organization Address City/[facility] Co de Phone Number [facility] Department [place] [address] * Magnesium (10/31/2024 7:51 AM CDT) [facility] Magnesium 2.1 1.4 - 2.5 mg/dL Blood 10/31/2024 7:51 AM CDT 10/31/2024 8:14 AM CDT Angela Ramirez MD LAB BLOOD ORDERABLES Fin al Result Performing Organization Address [facility] de Phone Number [facility] [place] [address] * (ABNORMAL) Hepatic function panel (10/31/2024 7:51 AM CDT) [facility] Bilirubin, total 2.0(H) 0.1 - 1.2 mg/dL Bilirubin, direct 0.9(H) 0.1 - 0.3 mg/dL [facility] Comment:Reviewed Protein, pl 5.5(L) 6.5 - 8.5 g/dL [facility] Albumin 3.0(L) 3.5 - 5.0 g/dL [facility] Alk phos 127 40 - 130 Units/L [facility] ALT 69(H) 7 - 45 Units/L [facility] Comment:Reviewed AST 129(H) 10 - 45 Units/L [facility] Comment:Reviewed Blood 10/31/2024 7:51 AM CDT 10/31/2024 8:14 AM CDT us Angela Ramirez MD LAB BLOOD ORDERABLES Fin al Result [facility] Department [place] [address] * (ABNORMAL) Basic metabolic panel (10/31/2024 7:51 AM CDT) Sodium 144 135 - 145 mmol/L Potassium, pl 2.5(C) 3.3 - 4.9 mmol/L [facility] Comment:Repeated and Verifie d Chloride 100 97 - 110 mmol/L [facility] CO2 35(H) 22 - 32 mmol/L [facility] Anion gap 9 2 - 15 mmol/L [facility] BUN 8 6 - 25 mg/dL [facility] Creatinine 0.80 0.60 - 1.10 mg/dL [facility] Glucose 116 70 - 199 mg/dL [facility] Comment: Interpretive Data Fasting glucose >/= 126 [...] 2022. Calcium 8.4(L) 8.5 - 10.3 mg/dL [facility] Blood 10/31/2024 7:51 AM CDT 10/31/2024 8:14 AM CDT us Angela Ramirez MD LAB BLOOD ORDERABLES Fin al Result Performing Organization Address [facility]/ZIP Co de Phone Number [facility] Department [place] [address] * (ABNORMAL) Troponin I high-sensitivity 2-hour (10/31/2024 5:13 AM CDT) Trop I hs 47(H) <=17 ng/L Comment: Interpretive Data For further hscTnI resources including the diagnostic algorithm and an aid in interpretation, copy and paste this link: https://bjhlab.testcatalog.org/show/[email or web address] Current Interpretive Data last revised 2020. Trop I hs delta -9 ng/L [facility] Trop I hs interp Equivocal [facility] Blood 10/31/2024 5:13 AM CDT 10/31/2024 5:24 AM CDT us Bro Blackwell MD LAB BLOOD ORDERABLES Final R esult Performing Organization Address City/[facility] Co de Phone Number [facility] Department [place] [address] * (ABNORMAL) Potassium, whole blood (10/31/2024 5:13 AM CDT) Pathologist [facility] Potassium, bld 2.6(L) 3.3 - 4.9 mmol/L Blood 10/31/2024 5:13 AM CDT 10/31/2024 5:23 AM CDT us Bro Blackwell MD LAB BLOOD ORDERABLES Final R esult Performing Organization Address City/[facility]/ZIP Co de Phone Number [facility] Department [place] [address] * (ABNORMAL) ECG 12-LEAD (10/31/2024 4:10 AM CDT) Narrative [facility] - 10/31/2024 4:10 AM CDT Angela Ramirez [...] Ramirez MD ECG ORDERABLES Final Re sult [facility] * (ABNORMAL) Troponin I high-sensitivity series (baseline, [...] LAB BLOOD ORDERABLES Final R esult [facility] Department [place] [address] * eGFR (10/31/2024 3:14 AM CDT) eGFR >90 >=60 mL/min/1. 73 [...] data was last reviewed 2021. Blood 10/31/2024 3:14 AM CDT 10/31/2024 3:34 AM CDT us Bro Blackwell MD LAB BLOOD ORDERABLES Final R esult [facility] Department [place] [address] * (ABNORMAL) Differential, auto (10/31/2024 3:14 AM CDT) Neutrophil abs 7.73(H) 1.50 - 6.50 K/cumm Imm gran abs 0.12(H) 0.00 - 0.10 K/cumm [facility] Lymphocyte abs 0.45(L) 0.80 - 3.30 K/cumm [facility] Monocyte abs 0.46 0.20 - 0.80 K/cumm [facility] Eosinophil abs 0.00 0.00 - 0.50 K/cumm [facility] Basophil abs 0.01 0.00 - 0.10 K/cumm [facility] Neutrophil pct 88.2 % [facility] Comment: Interpretive Data Percent cell count reference ranges are not reported, since discordance with absolute values may lead to misinterpretation of CBC data. Current Interpretive Data was last revised on 2017. Imm gran pct 1.4 % [facility] Comment: Interpretive Data Percent cell count reference ranges are not reported, since discordance with absolute values may lead to misinterpretation of CBC data. Current Interpretive Data was last revised on 2017. Lymphocyte pct 5.1 % [facility] Comment: Interpretive Data Percent cell count reference ranges are not reported, since discordance with absolute values may lead to misinterpretation of CBC data. Current Interpretive Data was last revised on 2017. Monocyte pct 5.2 % [facility] Comment: Interpretive Data Percent cell count reference ranges are not reported, since discordance with absolute values may lead to misinterpretation of CBC data. Current Interpretive Data was last revised on 2017. Eosinophil pct 0.0 % [facility] Comment: Interpretive Data Percent cell count reference ranges are not reported, since discordance with absolute values may lead to misinterpretation of CBC data. Current Interpretive Data was last revised on 2017. Basophil pct 0.1 % [facility] Comment: Interpretive Data Percent cell count reference ranges are not reported, since discordance with absolute values may lead to misinterpretation of CBC data. Current Interpretive Data was last revised on 2017. Blood 10/31/2024 3:14 AM CDT 10/31/2024 3:34 AM CDT us Bro Blackwell MD LAB BLOOD ORDERABLES Final R esult Performing Organization Address City/[facility] Co de Phone Number [facility] Department [place] [address] * Thyroid Function Maxwell (10/31/2024 3:14 AM CDT) TSH 0.55 0.30 - 4.20 mcIUnit/mL Blood 10/31/2024 3:14 AM CDT 10/31/2024 3:34 AM CDT us Bro Blackwell MD LAB BLOOD ORDERABLES Final R esult Performing Organization Address City/[facility] Co de Phone Number [facility] [place] [address] * (ABNORMAL) Calcium, ionized (10/31/2024 3:14 AM CDT) Calcium, Ionized 4.09(L) 4.50 - 5.10 mg/dL Blood 10/31/2024 3:14 AM CDT 10/31/2024 3:29 AM CDT us Bro Blackwell MD LAB BLOOD ORDERABLES Final R esult Performing Organization Address [facility] Co de Phone Number [facility] Department [place] [address] * (ABNORMAL) CBC with auto differential (10/31/2024 3:14 AM CDT) [facility] WBC 8.77 3.80 - 9.90 K/cumm Hgb 12.2 11.9 - 15.5 g/dL [facility] Hct 33.1(L) 35.6 - 45.5 % [facility] Plt 111(L) 150 - 400 K/cumm [facility] MPV 11.1 9.1 - 12.3 fL [facility] RBC 3.51(L) 3.90 - 5.20 M/cumm [facility] MCV 94.3 81.3 - 96.4 fL [facility] MCH 34.8(H) 27.1 - 33.3 pg [facility] MCHC 36.9(H) 32.3 - 35.7 g/dL [facility] RDW CV 14.7 11.1 - 14.9 % [facility] RDW SD 50.9(H) 35.7 - 48.1 fL [facility] NRBC abs 0.00 0.00 - 0.01 K/cumm [facility] Blood 10/31/2024 3:14 AM CDT 10/31/2024 3:34 AM CDT Bro Blackwell MD LAB BLOOD ORDERABLES Final R esult Performing Organization Address [facility]/ZIP Co de Phone Number [facility] [place] [address] * Phosphorus (10/31/2024 3:14 AM CDT) [facility] Phosphorus, pl 2.7 2.3 - 4.5 mg/dL Comment:Hemolyzed; result ma y be falsely elevated Blood 10/31/2024 3:14 AM CDT 10/31/2024 3:34 AM CDT Bro Blackwell MD LAB BLOOD ORDERABLES Final R esult Performing Organization Address City/[facility]/ZIP Co de Phone Number [facility] [place] [address] * Magnesium (10/31/2024 3:14 AM CDT) Pathologist [facility] Magnesium 2.4 1.4 - 2.5 mg/dL Blood 10/31/2024 3:14 AM CDT 10/31/2024 3:34 AM CDT Bro Blackwell MD LAB BLOOD ORDERABLES Final R esult Performing Organization Address [facility] de Phone Number [facility] Department [place] [address] * (ABNORMAL) Hepatic function panel (10/31/2024 3:14 AM CDT) Pathologist [facility] Bilirubin, total 2.2(H) 0.1 - 1.2 mg/dL Bilirubin, direct See Comment 0.1 - 0.3 mg/dL [facility] Comment:Credited; Hemolyzed Specimen Protein, pl 5.7(L) 6.5 - 8.5 g/dL [facility] Albumin 2.9(L) 3.5 - 5.0 g/dL [facility] Alk phos 123 40 - 130 Units/L [facility] Comment:Hemolyzed; result ma y be falsely decreased ALT See Comment 7 - 45 Units/L [facility] Comment:Credited; Hemolyzed Specimen AST See Comment 10 - 45 Units/L [facility] Comment:Credited; Hemolyzed Specimen Blood 10/31/2024 3:14 AM CDT 10/31/2024 3:34 AM CDT Bro Blackwell MD LAB BLOOD ORDERABLES Final R esult Performing Organization Address [facility] Co de Phone Number [facility] Department [place] [address] * Basic metabolic panel (10/31/2024 3:14 AM CDT) Sodium 142 135 - 145 mmol/L Potassium, pl See Comment 3.3 - 4.9 mmol/L [facility] Comment:Credited; Hemolyzed Specimen Chloride 98 97 - 110 mmol/L [facility] CO2 31 22 - 32 mmol/L [facility] Anion gap 13 2 - 15 mmol/L [facility] BUN 7 6 - 25 mg/dL [facility] Creatinine 0.71 0.60 - 1.10 mg/dL [facility] Glucose 121 70 - 199 mg/dL [facility] Comment: Interpretive Data Fasting glucose >/= 126 [...] 2022. Calcium 8.5 8.5 - 10.3 mg/dL [facility] Blood 10/31/2024 3:14 AM CDT 10/31/2024 3:34 AM CDT us Bro Blackwell MD LAB BLOOD ORDERABLES Final R esult [facility] [place] [address] * XR Chest 1 Vw Portable (10/31/2024 [...] it. Electronically signed by: Tito Garcia M.D. Bro Blackwell MD IMG XR PROCEDURES Final Resu lt * THINPREP TIS PAP REFLEX HPV mRNA E6/E7, CHLAMYDIA/N.GONORRHOEAE (09/14/2016 12:56 PM IMPLEMENTATION ANALYST) Pathologist [facility] CLINICAL INFORMATION [facility] HISTORICAL RESULTS Comment: LMP: [facility] HISTORICAL RESULTS PREV. PAP: [facility] HISTORICAL RESULTS Comment:2011 PREV. BX: [facility] HISTORICAL RESULTS Comment:UNKNOWN SOURCE: [facility] HISTORICAL RESULTS Comment:Cervix, Endocervix STATEMENT OF ADEQUACY: [facility] HISTORICAL RESULTS Comment:Satisfactory for savana luation. Endocervical/transformation zone component present. INTERPRETATION/RES ULT: [facility] HISTORICAL RESULTS Comment:Negative for intraep ithelial lesion or malignancy. COMMENT: [facility] HISTORICAL RESULTS Comment:This Pap test has be en evaluated with computer assisted technology. VAT TENDER: [facility] HISTORICAL RESULTS Comment:YQ, CT(ASCP) CT scre ening location: [employer] [place] [address] [place] [address] C. trachomatis RNA NOT DETECTED NOT DETECTED [facility] HISTORICAL RESULTS N. gonorrhoeae RNA NOT DETECTED NOT DETECTED [facility] HISTORICAL RESULTS COMMENT [facility] HISTORICAL RESULTS Comment: This test was performed using the APTIMA COMBO2 Assay ([employer] The analytical performance characteristics of this assay, when used to test [employer] specimens have been determined by [employer]. 09/14/2016 12:5 6 PM IMPLEMENTATION ANALYST 09/20/2016 11:25 AM IMPLEMENTATION ANALYST Narrative [facility] HISTORICAL RESULTS - 09/20/2016 11:07 AM IMPLEMENTATION ANALYST 0 PERFORMING LAB: [place] [address] [facility] [phone] Pelon Hand MD Irene [facility] PATHOLOGY ORDERABLE S Final Result 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
--- OUTSIDE RECORDS SUMMARY | 2025-01-08 07:06 | XMS_ITS | Encounter Summary ---
Author Organization [facility] Facility Care Team Providers Care Certified Professional Midwife Name Role Phone Christian Merritt MD Primary Care Provider [phone] Mo Mitchell MD Primary Care Provider [phone] Neeta Ott RN Unavailable [phone] Encounter Details Date Type Department Care Team (Latest Contact Info) Description 01/05/2017 Orders Only [facility]INCONV Provider, MD Serge [address] [place] [address] Social History Tobacco Use Types Packs/Day Years Used Date Smoking Tobacco: Never Assessed Comments Unknown Sex and Gender Information Value Date Recorded Sex Assigned at Not on file Legal Sex Female 8:06 PM 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
--- OUTSIDE RECORDS SUMMARY | 2025-01-08 07:06 | XMS_ITS | Patient Health Record ---
Author Organization [facility] Address [address] [place] [address] Care Team Providers Care Laundry Press Operator Name Role Phone Mo Mitchell Primary Care Provider Aj Larry Unavailable [phone] Marilu Mora Unavailable [phone] Allergies Allergen (clinical drug ingredient) Drug/Non Drug Allergy documented on EMR Reaction Allergy Type Onset Date Status Latex Latex Unknown Allergy Active Results Component Value Reference Range Notes 12 Panel Urine Drug Screen Reviewed date:12/05/2024 02:23:57 PM Interpretation: Performing Lab: Notes/Report: THC POS JONI neg MOP (OPI) neg AMP neg MET neg BAR neg BZO neg MDMA neg MTD neg OXY POS PCP neg BUP neg Reason For Referral Reason comprehensive eating disorder clinic Diagnosis 1 Eating disorder, uns pecified (F50.9) Referral Organization [facility]ly [facility] Referring Provider First Name Mo Referring Provider Last Name Paula Referring Provider Speciality Internal M edicine Referred Provider [facility]ty [facility] General Notes BRITTANIE Steel Stephanie N 02/10/2024 09:48:12 AM >[facility] does not accept Medicaid.Damián RN, Stephanie N 02/10/2024 09:48:35 AM > [facility] [place] does not accept Medicaid.Damián RN, Stephanie N 02/10/2024 09:51:40 AM > [facility] does not accept medicaid.Damián RN, Stephanie N 02/10/2024 10:13:09 AM > [facility] [place] offers intensive outpatient and partial hospitalization programs. Distance of approximately 2.5 hours [address] distance for pt.Damián RN, Stephanie N 02/20/2024 10:06:04 AM >Health Navigator, Eboni Nath, located the following programs in the [facility] that accept Zhao:, 1. [facility] - [place], [place] IP, PHP, IOP, OP IP/PHP/IOP/OP- adults, all genders, RTC- adults, female-identifying. (located in [place], [place] near [place]): [phone]., 2. [facility] [place] [place] PHP, IOP, OP Adults, adolescents, all genders - phone [phone], Reviewed [facility] information. It is a general [facility] with an eating disorder [...] 1 Unsteady gait (R26.8 1) Referral Organization [facility] Referring Provider First Name Mo Referring Provider Last Name Paula Referring Provider Speciality Internal M edicine Referred Provider Specialty Physical The rapist General Notes BRITTANIE Patton, Tory Manzano 05/11/2024 09:02:12 AM > Referral to [facility] PT. letter to pt. Clinical Notes [facility] Physical Therap y, [address], [facility] [address], , Referral Priority Routine Medications Medication SIG (Take, Route, Frequency, Duration) Notes Start Date End Date Status GoodSense Nicotine 2 MG 1 piece chew for 30 minutes as needed Mouth/Throat EVERY 1-2 HOURS 11/14/2023 Not-Taking Jevity 1.5 Adams/Fiber - 75 mL feeding tube four times daily for 30 days via feeding tube followed by 100 mL water flush 02/13/2024 Not-Taking Pregabalin 150 MG 1 capsule Orally TWI CE a day for 30 days 02/13/2024 Not-Taking DULoxetine HCl 60 MG 1 capsule Orally On ce a day for 30 days Not-Taking Ondansetron 8 MG 1 tablet on the tong ue and allow to dissolve as needed Orally Once a day for 30 days Not-Taking traZODone HCl 50 MG 1 tablet at bedtime as needed Orally Once a day for 30 days Not-Taking Magnesium Oxide 420 MG 1 tablet with crystal d Orally Once a day Active Loperamide HCl 1 MG/7.5ML 15 mL as neede d Orally Four times a day Active Lactose - as directed Active Famotidine 20 MG 1 tablet at bedtime as needed Orally Once a day Active Ergocalciferol 1.25 MG (27015 UT) 1 capsule Orally Active Cyanocobalamin 1000 MCG as directed Orally Active Cefadroxil 500 MG 1 capsule Orally klaus ry 12 hrs Active busPIRone HCl 15 MG 1 tablet Orally Twic e a day Active Eliquis 5 MG 1 tablet Orally twic e a day Not-Taking B-Complex-C - as directed Orally Active Simethicone 80 MG 1 tablet after meals and at bedtime as needed Orally Four times a day Active OLANZapine 5 MG 1 tablet Orally Once a day Active oxyCODONE HCl 5 MG 1 tablet as needed Orally 3 times a day for 30 days PAIN 12/05/2024 Active Nicotine 14 MG/24HR 1 patch to skin Transdermal Once a day Active Naloxone HCl 4 MG/10ML as directed Injection Active Nadolol 20 MG 2 tablets Orally Onc e a day Active Methocarbamol 750 MG 1 tablet Orally klaus ry 4 hrs Active Multivitamin - 1 tablet Orally Once a day Active Folic Acid 1 MG 1 tablet Orally Once a day for 30 days Active Ferrous Sulfate 325 (65 Fe) MG 1 tablet Orally twice a day for 30 day(s) Active Megestrol Acetate 20 MG 1 tablet Orally Twice a day for 30 days Active Acetaminophen 500 MG two tablets as need ed for pain (maximum of 6 tablets in 24 hours) Orally every 6 hrs 10/01/2024 Active Butrans 5 MCG/HR 1 patch to skin Transdermal weekly Not-Taking Social History Tobacco Use: Social History Observation Description Date Details (start date - stop date) Current Smoker 12/11/2006 - NA Sex Assigned At : Social History Observation Description Sex Assigned At Female Tobacco Control (Standard) Question Answer Notes When did you start smoking? 12/11/2006 How often do you smoke cigarettes? Every day How many cigarettes a day do you smoke? 6-10 How soon after you wake up d o you smoke your first cigarette? 6-30 minutes Are you interested in quitting? Not ready to mahin t Tobacco use: Current smoker Additional Findings: Tobacco user Modera te cigarette smoker (10-19 cigs/day) Problems Problem Type SNOMED Code ICD Code Onset Dates Problem Status W/U Status Risk Notes Problem Tobacco user (114151969) Nicotine dependence, unspecified, uncomplicated (F17.200) Active confirmed Problem Eating disorder (07667830) Eating disorder, unspecified (F50.9) Active confirmed Problem Prolonged QT interval (929774261) Prolonged QT interval (I45.81) Active confirmed Problem Peripheral neuropathy (886667518) Peripheral neuropathy (G62.9) Active confirmed Problem Chronic pain (39561036) Chronic pain (G89.29) Active confirmed Problem Unsteady gait (87045544) Unsteady gait (R26.81) Active confirmed Problem Deficiency of macronutrients (disorder) (918049485) Protein-calorie malnutrition, unspecified severity (E46) Active confirmed Problem Alcohol related disorder (F10.99) Active confirmed Vital Signs Heart Rate 91 /min 12/05/2024 Temperature 97.2 degrees Fahrenheit 03/20/2024 Respiratory Rate 16 /min 12/05/2024 Blood pressure diastolic 70 mm Hg 12/05/2024 Oximetry 98 % 12/05/2024 Height 61 in 12/05/2024 Blood pressure systolic 108 mm Hg 12/05/2024 Weight 105.8 lbs 12/05/2024 BMI 19.99 kg/m2 12/05/2024 Encounters Encounter Location Date Provider Diagnosis [address] [place] [address] 02/13/2024 Mo Mitchell Peripheral neuropath y G62.9 ; Protein-calorie malnutrition, unspecified severity E46 ; Patient underweight R63.6 ; Nutritional counseling Z71.3 ; Non-tobacco user Z78.9 and Anxiety F41.[address] [place] [address] 03/20/2024 Mo Mitchell Peripheral neuropath y G62.9 ; Eating disorder, unspecified F50.9 ; Unsteady gait R26.81 ; Protein-calorie malnutrition, unspecified severity E46 and Periodontal disease K05.[address] [place] [address] 03/20/2024 Marilu Mora [address] [place] [address] 10/01/2024 Mo Mitchell Protein-calorie malnutrition, unspecified severity E46 ; Peripheral neuropathy G62.9 ; Eating disorder, unspecified F50.9 and Nicotine dependence, unspecified, uncomplicated F17.[address] [place] [address] 12/05/2024 Mo Mitchell Torsades de pointes I47.21 ; Prolonged QT interval I45.81 ; Chronic pain G89.29 ; Alcohol related disorder F10.99 ; Peripheral neuropathy G62.9 ; Protein-calorie malnutrition, unspecified severity E46 ; Unsteady gait R26.81 and Opioid use F11.[address] [place] [address] 01/11/2024 Mo Mitchell Peripheral neuropath y G62.9 Formerly [facility] [address], [place] [address] 01/18/2024 Mo Mitchell Peripheral neuropath y G62.[address] [place] [address] 01/25/2024 Mo Mitchell Peripheral neuropath y G62.9 Formerly [facility] [address], [place] [address] 02/09/2024 Mo Mitchell [address] [place] [address] 02/20/2024 Mo Mitchell [address] [place] [address] 11/23/2024 Mo Mitchell [address] [place] [address] 12/03/2024 Mo Mitchell [facility] [address] [facility] [address] 12/03/2024 Mo Mitchell [address] [place] [address] 12/05/2024 Mo Mitchell [address] [place] [address] 12/19/2024 Mo Mitchell [facility] [address] [place] [address] 12/28/2024 Mo Mitchell [facility] [address] [place] [address] 01/02/2025 oM Mitchell Hypokalemia E87.6 ; Alcohol related disorder F10.99 and Fatigue R53.[address] [place] [address] 02/08/2024 Mo Mitchell Peripheral neuropath y G62.9 and Eating disorder, unspecified F50.[address] [place] [address] 02/08/2024 Mo Mitchell [address] [place] [address] 02/09/2024 Mo Mitchell Eating disorder, unspecified F50.9 and Peripheral neuropathy G62.[address] [place] [address] 02/20/2024 Mo Mitchell Peripheral neuropath y G62.[address] [place] [address] 02/29/2024 Aj Larry Peripheral neuropath y G62.[address] [place] [address] 03/01/2024 Mo Mitchell [address] [place] [address] 03/19/2024 Mo Mitchell [address] [place] [address] 04/20/2024 Mo Mitchell [address] [address] 06/13/2024 Mo Mitchell [address] [address] 06/14/2024 Mo Mitchell Eating disorder, unspecified F50.[address] [address] 06/18/[address] [address] 06/27/[address] [address] 07/27/[address] [address] 07/30/2024 Mo Mitchell [address] [address] 09/25/[address] [address] 10/15/2024 Mo Mitchell Eating disorder, unspecified F50.9 and Peripheral neuropathy G62.9 Assessments Encounter Date Diagnosis (ICD Code) Assessment Notes Treatment Notes Treatment Clinical Notes Section Notes 10/01/2024 Protein-calorie malnutrition, unspecified severity (ICD-10 - E46) 12/05/2024 Torsades de pointes (ICD-10 - I47.21) WILL NEED TO AVOID QT-PROLONGING DRUGS. F/U WITH CARDIOLOGY FOR MONITOR. 01/02/2025 Hypokalemia (ICD-10 - E87.6) 10/01/2024 Peripheral neuropathy (ICD-10 - G62.9) 01/02/2025 Alcohol related disorder (ICD-10 - F10.99) 10/15/2024 Eating disorder, unspecified (ICD-10 - F50.9) 12/05/2024 Prolonged QT interval (ICD-10 - I45.81) F/U WITH CARDIOLOGY. 01/11/2024 Peripheral neuropathy (ICD-10 - G62.9) 01/18/2024 Peripheral neuropathy (ICD-10 - G62.9) 01/25/2024 Peripheral neuropathy (ICD-10 - G62.9) 02/08/2024 Eating disorder, unspecified (ICD-10 - F50.9) 02/08/2024 Peripheral neuropathy (ICD-10 - G62.9) 02/09/2024 Eating disorder, unspecified (ICD-10 - F50.9) 02/09/2024 Peripheral neuropathy (ICD-10 - G62.9) 02/13/2024 Peripheral neuropathy (ICD-10 - G62.9) 02/13/2024 Protein-calorie malnutrition, unspecified severity (ICD-10 - E46) SUSPECT UNDERLYING EATING DISORDER 02/20/2024 Peripheral neuropathy (ICD-10 - G62.9) 02/29/2024 Peripheral neuropathy (ICD-10 - G62.9) 03/20/2024 Eating disorder, unspecified (ICD-10 - F50.9) 03/20/2024 Peripheral neuropathy (ICD-10 - G62.9) 06/14/2024 Eating disorder, unspecified (ICD-10 - F50.9) 03/20/2024 Unsteady gait (ICD-10 - R26.81) 02/13/2024 Patient underweight (ICD-10 - R63.6) 12/05/2024 Chronic pain (ICD-10 - G89.29) OPTIONS ARE LIMITED TO OPIOIDS AT THIS TIME. SHE DOES NOT WANT TO TRY NEW NON-OPIOID PAIN MED YET. 10/15/2024 Peripheral neuropathy (ICD-10 - G62.9) 10/01/2024 Eating disorder, unspecified (ICD-10 - F50.9) 01/02/2025 Fatigue (ICD-10 - R53.83) 12/05/2024 Alcohol related disorder (ICD-10 - F10.99) UNDERSTANDS THAT SHE MUST ABSTAIN FROM DRINKING. 02/13/2024 Nutritional counseling (ICD-10 - Z71.3) 03/20/2024 Protein-calorie malnutrition, unspecified severity (ICD-10 - E46) 10/01/2024 Nicotine dependence, unspecified, uncomplicated (ICD-10 - F17.200) 03/20/2024 Periodontal disease (ICD-10 - K05.6) SEE DENTIST MADIHA 02/13/2024 Non-tobacco user (ICD-10 - Z78.9) 12/05/2024 Peripheral neuropathy (ICD-10 - G62.9) PT/OTKRISTIAN 12/05/2024 Protein-calorie malnutrition, unspecified severity (ICD-10 - E46) CONTINUE TF 1.5 ADAMS/ML LOW LACTOSE SOLUTION 02/13/2024 Anxiety (ICD-10 - F41.9) SUSPECT UNDERLYING EATING DISORDER PSYCH REFERRAL SENT EARLIER AND PENDING 12/05/2024 Unsteady gait (ICD-10 - R26.81) KRISTIAN, PT/OT 12/05/2024 Opioid use (ICD-10 - F11.90) Plan Of Treatment Future Test Test Name Order Date Carbohydrate Deficient Transf. Vitamin B12 and Folate 01/06/2025 Iron and TIBC* 01/06/2025 Magnesium, Serum* 01/06/2025 CBC With Differential/Platelet* 01/07/20 25 CMP 14 Comprehensive Metabolic Panel* Insurance Providers Payer Name Payer Address Payer Phone Subscriber Number Group Number Insured Name Patient Relationship to Insured Coverage Start Date Coverage End Date [employer] [facility] [address] [place] [phone] [id number] Ester León Self - patient is the insured Medical (General) History Surgical History Surgery Date(Month/Year) peg tube 10/2023 child 2016 Hospitalization History Reason Date(Month/Year) [facility] 02/04/17 [facility] Cardiac arrest 10/2024 [facility]. infection 07/2024
--- NOTE | 2025-01-08 07:10 | ECG_ITS ---
Test Date: 2025-01-08 07:13:31 Measurements Intervals [place] Rate: 98 P: 63 HI: 134 QRS: 71 QRSD: 67 T: -52 QT: 334 QTc: 428 Interpretive Statements SINUS RHYTHM LOW QRS VOLTAGE IN PRECORDIAL LEADS ST-T WAVE ABNORMALITY IN ANT/INF LEADS- CONSIDER ISCHEMIA BASELINE ARTIFACT- I, II, III, AVR, AVL, AVF, V1-V6 ABNORMAL ECG Compared to ECG 10/30/2024 22:08:06 HEART RATE HAS DECREASED Electronically Signed On 01-08-2025 08:28:39 CDT by Jayme Mcneal D.O.
[2025-01-08 07:22] LABS: Basophils Absolute Auto 0.1 K/mm3 (0.0-0.1); Eosinophils Percent Auto 0.7 % (0-4.4); Hematocrit 43.1 % (37.0-47.0); Hemoglobin 14.2 g/dL (12.0-15.0); Immature Granulocyte Absolute 0.01 K/mm3 (0.00-0.031); Immature Granulocyte Percent A 0.2 % (0-0.5); Lymphocytes Absolute Auto 3.03 K/mm3 (0.9-3.2); Lymphocytes Percent Auto 51.4 % (18.3-44.2); Mean Corpuscular HGB Conc 32.9 g/dl (32-36); Mean Corpuscular Hemoglobin 32.1 pg (26-34); Mean Corpuscular Volume 97.5 fl (80-100); Mean Platelet Volume 9.4 fl (7.4-10.4); Monocytes Absolute Auto 0.4 K/mm3 (0.1-0.6); Monocytes Percent Auto 6.6 % (2.6-8.5); Neutrophils Absolute Auto 2.4 K/mm3 (1.3-6.7); Neutrophils Percent Auto 40.1 % (45.5-73.1); Platelet Count Result 176 k/mm3 (150-375); Red Blood Count 4.42 M/mm3 (4.2-5.4); Red Cell Distribution Width 13.4 % (11.5-14.5); White Blood Count 5.9 K/mm3 (4.5-10.0)
[2025-01-08 07:35] LABS: Alanine Aminotransferase 29 U/L (6-35); Albumin Level 4.3 g/dL (3.5-5.1); Alkaline Phosphatase 163 U/L (38-126); Anion Gap 12 mmol/L (4-12); Aspartate Amino Transferase 65 U/L (14-36); Bilirubin,Total 0.3 mg/dL (0.2-1.3); Blood Urea Nitrogen 12 mg/dL (7-17); Carbon Dioxide 20 mmol/L (22-30); Chloride 105 mmol/L (98-107); Estimated CRCL calculation 76 ml/min; Estimated Glomerular Filt Rate > 60; Glucose 112 mg/dL (65-110); Lipase 111 U/L (23-300); Potassium 3.7 mmol/L (3.4-5.0); Sodium 137 mmol/L (137-145); Total Protein 7.9 g/dL (6.3-8.2)
[2025-01-08] MEDS: SODIUM CHLORIDE 0.9% IV 1,000 ML 999 ML IV CONT (07:41)
--- OUTSIDE RECORDS SUMMARY | 2025-01-08 07:42 | XMS_ITS | Clinical Summary ---
Author Organization [facility] Address [address] [place] [address] [place] [address] Care Team Providers Care Weight Reducing Technician Name Role Phone Unavailable Primary Care Provider [...]
--- OUTSIDE RECORDS SUMMARY | 2025-01-08 07:42 | XMS_ITS | Encounter Summary ---
Author Organization [facility] Care Team Providers Care Metal Mold Dresser Name Role Phone Christian Merritt MD Primary Care Provider [phone] Mo Mitchell MD Primary Care Provider Neeta Ott RN Unavailable [phone] Encounter Details Date Type Department Care Team (Latest Contact Info) Description 12/06/2016 Orders Only [facility]IN[facility]V Provider, MD Serge [address] [place] [address] Social History Tobacco Use Types Packs/Day Years Used Date Smoking Tobacco: Never Assessed Comments Unknown Sex and Gender Information Value Date Recorded Sex Assigned at Not on file 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
--- OUTSIDE RECORDS SUMMARY | 2025-01-08 07:42 | XMS_ITS | Encounter Summary ---
Author Organization [facility] Care Team Providers Care Senior Mechanical Project Engineer Name Role Phone Christian Merritt MD Primary Care Provider [phone] Mo Mitchell MD Primary Care Provider [phone] Neeta Ott RN Unavailable [phone] Encounter Details Date Type Department Care Team (Latest Contact Info) Description 12/09/2016 Orders Only [facility] CLINCONV Provider, MD Serge [address] [place] [address] Social History Tobacco Use Types Packs/Day Years Used Date Smoking Tobacco: Never Assessed Comments Unknown Sex and Gender Information Value Date Recorded Sex Assigned at Not on file 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
--- OUTSIDE RECORDS SUMMARY | 2025-01-08 07:44 | XMS_ITS | Clinical Summary ---
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 Indications: treatment to prevent a heart [...] - 01/01/2025 11:59 PM CDT Hospital Encounter [facility] [address] [place] [address] Discharge Disposition: Discharge to home or self care 01/01/2025 2:00 PM CDT Home Care Visit [facility] [address] [place] [address] Nayely Pedroza, BRITTANIE SN HOME VISIT 01/01/2025 Telephone [facility] Infectious Diseases [address] [place] [address] Sidney Gould Jr., RN 12/31/2024 Telephone [facility] Cardiology [address] 8th [place] [address] [place] [address] Nani Melchor, BRAXTON 12/31/2024 Orders Only [facility] Infectious Diseases [address] [place] [address] Dorothea Stephen, BRAXTON 12/28/2024 11:00 AM CDT Home Care Visit [address] [place] [address] Nayely Pedroza, RN SN HOME VISIT 12/27/2024 2:00 PM CDT Home Care Visit [address] [place] [address] Thang Solorzano, PT PT DISCIPLINE DISCHARGE 12/27/2024 9:13 AM CDT - 12/27/2024 11:59 PM CDT Hospital Encounter [facility] [address] [place] [address] Discharge Disposition: Discharge to home or self care 12/27/2024 8:40 AM CDT Office Visit [facility] Infectious Diseases [address] [place] [phone] Dorothea Stephen, BRAXTON MSSA bacteremia (Primary Dx); Encounter for screening examination for sexually transmitted disease 12/27/2024 Telephone [facility] Infectious Diseases [address] [place] [phone] Dorothea Stephen, BRAXTON 12/21/2024 2:00 PM CDT Home Care Visit [address] [place] [address] Thang Solorzano, PT PT HOME VISIT 12/21/2024 11:30 AM CDT Home Care Visit [address] [place] [address] Nayely Pedroza, RN SN HOME VISIT 12/21/2024 Orders Only [facility] Cardiology [address] [facility] 8th Floor [address] [place] [phone] Nani Melchor, BRAXTON 12/19/2024 11:00 AM CDT Home Care Visit [address] [place] [address] Thang Solorzano, PT PT HOME VISIT 12/19/2024 Home Care Visit [address] [place] [address] Thang Solorzano, PT CASE COMMUNICATION 12/13/2024 10:45 AM CDT Home Care Visit [address] [place] [address] Khushboo Jarvis, PT PT HOME VISIT 12/11/2024 2:30 PM CDT Home Care Visit [address] [place] [address] Khushboo Jarvis, PT PT HOME VISIT 12/11/2024 1:00 PM CDT Home Care Visit [address] [place] [address] Nayely Pedroza, RN SN HOME VISIT 12/07/2024 SHOP/CHAP Subsequent Outreach [facility] [address] [place] [address] Neeta Ott RN 12/06/2024 12:30 PM CDT Home Care Visit [address] [place] [address] Nayely Pedroza, RN SN HOME VISIT 12/06/2024 11:00 AM CDT Home Care Visit [address] [place] [address] Isabelle Campbell, OT OT INITIAL EVALUATION 12/05/2024 SHOP/CHAP Subsequent Outreach [facility] [address] [place] [address] Neeta Ott RN 12/04/2024 SHOP/CHAP Subsequent Outreach [facility] 1 [facility] [place] [address] Neeta Ott RN 12/04/2024 Home Care Visit [address] [place] [address] Nayely Pedroza, BRITTANIE CARE CONFERENCE 12/03/2024 1:10 PM CDT Telemedicine [facility] [address] [place] [address] [place] [address] Yamilex Mathew, BRAXTON Torsades de pointes (HCC) (Primary Dx); [facility] bacteremia 12/03/2024 10:00 AM CDT Home Care Visit [address] [place] [address] Thang Solorzano, PT PT INITIAL EVALUATION 12/03/2024 Home Care Visit [address] [place] [address] Billy Zarco RN TELEPHONE ENCOUNTER 12/03/2024 Home Care Visit [address] [place] [address] Thang Solorzano, PT TELEPHONE ENCOUNTER 12/01/2024 12:00 PM CDT Home Care Visit [place] [address] [address] [place] [address] Billy Zarco, BRITTANIE SN OASIS START OF CARE 12/01/2024 Plan of Care Documentation [address] [place] [address] 11/30/2024 Orders Only [facility] Cardiothoracic Surgery [facility] 8th Floor [address] [address] [place] [address] Lee Elena MD Mass of left cardiac ventricle (Primary Dx) 11/29/2024 Telephone [facility] Home Care Services [address] [place] [address] Dora Sandra 11/29/2024 Orders Only Internal Medicine Alex Bailey MD 11/29/2024 SHOP/CHAP Initial Outreach [facility] 1 [place] [address] Neeta Ott RN 11/29/2024 SHOP/CHAP Initial Eligibility Review [facility] [address] [place] [address] Neeta Ott RN 11/28/2024 Home Care Visit [facility] Home Health [place] [address] [address] [place] [address] Hortensia Valentino RN SN TRIAGE ENCOUNTER 11/28/2024 Orders Only [facility] Cardiothoracic Surgery [address] [facility] 8th Floor [address] Room [address] [phone] Bo Fried MD MSSA bacteremia (Primary Dx); Thrombocytopenia 11/23/2024 Telephone [facility] Home Care Services [address] [place] [address] Dora Sandra 11/14/2024 1:40 PM CDT Anesthesia Event [facility] [address] [place] [phone] Rudy Licona MD 11/05/2024 Results Follow-Up Critical Care Medicine Michaela Giordano MD Basic metabolic panel, Basic metabolic panel, eGFR, Additional followed-up results: 32 10/31/2024 2:44 AM CDT - 11/28/2024 3:29 PM CDT Hospital Encounter [address] [address] Angela Ramirez MD Vazquez Guillamet, MD Arnulfo [...] materials from doctor or pharmacy Sometimes 12/01/2024 [facility] Utilities Answer Date Recorded In the past 12 months has e [employer], gas, oil, or water [employer] threatened to shut off services in your [...] often do you attend chur ch or yazdanism services? Never 11/29/2024 Do you belong to any clubs o r organizations such as spiritism groups, unions, fraternal or athletic groups, or [...] any time in the past 12 m [facility], were you homeless or living in a longterm (including now)? No 11/29/2024 Personal Safety Answer Date Recorded Have you ever been in or are you currently in a harmful physical or emotional relationship or is someone making you feel afraid or unsafe? 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60 - 1.10 mg/dL [facility] Glucose 91 70 - 199 mg/dL [facility] Comment: Interpretive Data Fasting glucose >/= [...] 2022. Calcium 9.2 8.5 - 10.3 mg/dL [facility] Blood 01/01/2025 2:10 PM CDT 01/01/2025 6:04 PM CDT us Dorothea Stephen NP LAB BLOOD ORDERABLES Krystyna meyers Result [facility] [place] [address] * Glucose, random (Outreach) (12/27/2024 9:13 AM CDT) [facility] Glucose 118 70 - 199 mg/dL Comment: [...] CDT 12/27/2024 10:38 AM CDT Dorothea Jaramillo'Brien VOCATIONAL REHAB CONSULTANT LAB BLOOD ORDERABLES Krystyna l Result Performing Organization Address [facility] Co de Phone Number [facility] [place] [address] * eGFR (12/27/2024 9:13 AM CDT) eGFR [...] CDT 12/27/2024 10:50 AM CDT Dorothea Stephen VOCATIONAL REHAB CONSULTANT LAB BLOOD ORDERABLES Krystyna l Result SHONA [facility] [place] [address] * Differential, auto (12/27/2024 9:13 AM CDT) Neutrophil abs 3.36 1.50 - 6.50 K/cumm Imm gran abs 0.01 0.00 - 0.10 K/cumm [facility] Lymphocyte abs 1.97 0.80 - 3.30 K/cumm [facility] Monocyte abs 0.37 0.20 - 0.80 K/cumm [facility] Eosinophil abs 0.18 0.00 - 0.50 K/cumm [facility] Basophil abs 0.04 0.00 - 0.10 K/cumm [facility] Neutrophil pct 56.7 % [facility] Comment: Interpretive Data Percent cell count reference ranges are not reported, since discordance with absolute values may lead to misinterpretation of CBC data. Current Interpretive Data was last revised on 2017. Imm gran pct 0.2 % [facility] Comment: Interpretive Data Percent cell count reference ranges are not reported, since discordance with absolute values may lead to misinterpretation of CBC data. Current Interpretive Data was last revised on 2017. Lymphocyte pct 33.2 % [facility] Comment: Interpretive Data Percent cell count reference ranges are not reported, since discordance with absolute values may lead to misinterpretation of CBC data. Current Interpretive Data was last revised on 2017. Monocyte pct 6.2 % [facility] Comment: Interpretive Data Percent cell count reference ranges are not reported, since discordance with absolute values may lead to misinterpretation of CBC data. Current Interpretive Data was last revised on 2017. Eosinophil pct 3.0 % [facility] Comment: Interpretive Data Percent cell count reference ranges are not reported, since discordance with absolute values may lead to misinterpretation of CBC data. Current Interpretive Data was last revised on 2017. Basophil pct 0.7 % [facility] Comment: Interpretive Data Percent cell count reference ranges are not reported, since discordance with absolute values may lead to misinterpretation of CBC data. Current Interpretive Data was last revised on 2017. Blood 12/27/2024 9:13 AM CDT 12/27/2024 10:37 AM CDT us Dorothea Stephen NP LAB BLOOD ORDERABLES Krystyna l Result [facility] [place] [address] * (ABNORMAL) Comprehensive metabolic panel, without glucose (Outreach) (12/27/2024 9:13 AM CDT) [facility] Sodium 136 135 - 145 mmol/L Potassium, pl 2.9(L) 3.3 - 4.9 mmol/L [facility] Chloride 98 97 - 110 mmol/L [facility] CO2 24 22 - 32 mmol/L [facility] Anion gap 14 2 - 15 mmol/L [facility] BUN 9 6 - 25 mg/dL [facility] Creatinine 0.64 0.60 - 1.10 mg/dL [facility] Calcium 9.7 8.5 - 10.3 mg/dL [facility] Protein, pl 8.2 6.5 - 8.5 g/dL [facility] Albumin 4.2 3.5 - 5.0 g/dL [facility] Bilirubin, total 0.7 0.1 - 1.2 mg/dL [facility] Alk phos 175(H) 40 - 130 Units/L [facility] AST 51(H) 10 - 45 Units/L [facility] ALT 25 7 - 45 Units/L [facility] Blood 12/27/2024 9:13 AM CDT 12/27/2024 10:38 AM CDT us Dorothea Stephen VOCATIONAL REHAB CONSULTANT LAB BLOOD ORDERABLES Krystyna l Result [facility] Department [place] [address] * (ABNORMAL) CBC with auto differential (12/27/2024 9:13 AM CDT) [facility] WBC 5.93 3.80 - 9.90 K/cumm Hgb 13.9 11.9 - 15.5 g/dL [facility] Hct 40.1 35.6 - 45.5 % [facility] Plt 138(L) 150 - 400 K/cumm [facility] MPV 11.4 9.1 - 12.3 fL [facility] RBC 4.23 3.90 - 5.20 M/cumm [facility] MCV 94.8 81.3 - 96.4 fL [facility] MCH 32.9 27.1 - 33.3 pg [facility] MCHC 34.7 32.3 - 35.7 g/dL [facility] RDW CV 13.0 11.1 - 14.9 % [facility] RDW SD 45.3 35.7 - 48.1 fL [facility] NRBC abs 0.00 0.00 - 0.01 K/cumm [facility] Blood 12/27/2024 9:13 AM CDT 12/27/2024 10:37 AM CDT Doroteha Stephen NP LAB BLOOD ORDERABLES Krystyna l Result Performing Organization Address City/[facility]/ZIP Co de Phone Number [facility] Department [place] [address] * Magnesium (12/27/2024 9:13 AM CDT) Magnesium 1.9 1.4 - 2.5 mg/dL Blood 12/27/2024 9:13 AM CDT 12/27/2024 10:50 AM CDT Mo Villatoro MD LAB BLOOD ORDERABLES Final Resul t [facility] [place] [address] * Blood culture Blood (12/27/2024 9:05 AM CDT) Report Final Report: No growth Blood 12/27/2024 9:05 AM CDT 12/27/2024 11:47 AM CDT Narrative [facility] - 12/31/2024 12:00 PM CDT Specimen received [...] performance characteristics have been verified by the [facility]. For questions about this culture, contact the Microbiology Laboratory at [phone]. Interpretive data was last revised on 24. Dorothea Stephen NP LAB MICROBIOLOGY - GENERA L ORDERABLES Final Result SHONA RAMIREZ [facility] [place] [address] * Blood culture Blood (12/27/2024 9:05 AM [...] performance characteristics have been verified by the [facility]. For questions about this culture, contact the Microbiology Laboratory at [phone]. Interpretive data was last revised on 24. us Dorothea Stephen NP LAB MICROBIOLOGY - GENERA L ORDERABLES Final Result Performing Organization Address [facility] Co de Phone Number SHONA [facility] Department [place] [address] * (ABNORMAL) Cystatin C (11/28/2024 10:45 AM CDT) [facility] Cystatin C 1.23(H) 0.60 - 1.20 mg/L Comment: Interpretive Data Cystatin C concentrations vary widely in the first month of life, particularly in pre-term infants. Concentrations gradually diminish to adult levels by 1 year of life. Concentrations tend to rise with diminishing renal function in individuals greater than 60 years of age. Current Interpretive Data was last revised on 2020. Testing performed by: [facility], [facility] [address] Blood 11/28/2024 10:4 5 AM CDT 11/28/2024 12:03 PM CDT us Alex Bailey MD LAB BLOOD ORDERABLES Final Resu lt Performing Organization Address City/[facility]/ZIP Co de Phone Number SHONA [facility] Department [place] [address] * eGFR (11/27/2024 9:44 PM CDT) Pathologist [facility] eGFR >90 >=60 mL/min/1. 73 m2 Comment: [...] MD LAB BLOOD ORDERABLES Krystyna meyers Result [facility] [place] [address] * (ABNORMAL) Differential, auto (11/27/2024 9:44 PM CDT) Pathologist [facility] Neutrophil abs 2.70 1.50 - 6.50 K/cumm Imm gran abs 0.03 0.00 - 0.10 K/cumm [facility] Lymphocyte abs 2.90 0.80 - 3.30 K/cumm [facility] Monocyte abs 0.50 0.20 - 0.80 K/cumm [facility] Eosinophil abs 0.13 0.00 - 0.50 K/cumm [facility] Basophil abs 0.13(H) 0.00 - 0.10 K/cumm [facility] Neutrophil pct 42.3 % [facility] Comment: Interpretive Data Percent cell count reference ranges are not reported, since discordance with absolute values may lead to misinterpretation of CBC data. Current Interpretive Data was last revised on 2017. Imm gran pct 0.5 % SHONA [facility] Comment: Interpretive Data Percent cell count reference ranges are not reported, since discordance with absolute values may lead to misinterpretation of CBC data. Current Interpretive Data was last revised on 2017. Lymphocyte pct 45.4 % SH[facility] Comment: Interpretive Data Percent cell count reference ranges are not reported, since discordance with absolute values may lead to misinterpretation of CBC data. Current Interpretive Data was last revised on 2017. Monocyte pct 7.8 % [facility] Comment: Interpretive Data Percent cell count reference ranges are not reported, since discordance with absolute values may lead to misinterpretation of CBC data. Current Interpretive Data was last revised on 2017. Eosinophil pct 2.0 % [facility] Comment: Interpretive Data Percent cell count reference ranges are not reported, since discordance with absolute values may lead to misinterpretation of CBC data. Current Interpretive Data was last revised on 2017. Basophil pct 2.0 % [facility] Comment: Interpretive Data Percent cell count reference ranges are not reported, since discordance with absolute values may lead to misinterpretation of CBC data. Current Interpretive Data was last revised on 2017. Blood 11/27/2024 9:44 PM CDT 11/27/2024 10:41 PM CDT us Lee Elena MD LAB BLOOD ORDERABLES Krystyna l Result [facility] [place] [address] * (ABNORMAL) CBC with auto differential (11/27/2024 9:44 PM CDT) Pathologist [facility] WBC 6.39 3.80 - 9.90 K/cumm Hgb 10.5(L) 11.9 - 15.5 g/dL [facility] Hct 32.5(L) 35.6 - 45.5 % [facility] Plt 419(H) 150 - 400 K/cumm [facility] MPV 9.3 9.1 - 12.3 fL [facility] RBC 3.10(L) 3.90 - 5.20 M/cumm [facility] MCV 104.8(H) 81.3 - 96.4 fL [facility] MCH 33.9(H) 27.1 - 33.3 pg [facility] MCHC 32.3 32.3 - 35.7 g/dL [facility] RDW CV 18.6(H) 11.1 - 14.9 % [facility] RDW SD 71.7(H) 35.7 - 48.1 fL [facility] NRBC abs 0.00 0.00 - 0.01 K/cumm [facility] Blood 11/27/2024 9:44 PM CDT 11/27/2024 10:41 PM CDT us Lee Elena MD LAB BLOOD ORDERABLES Krystyna l Result Performing Organization Address City/[facility]/ZIP Co de Phone Number [facility] [place] [address] * (ABNORMAL) Vitamin D 25 hydroxy (11/27/2024 9:44 PM CDT) Pathologist [facility] Vitamin D 25-OH 27(L) 30 - 80 ng/mL Blood 11/27/2024 9:44 PM CDT 11/27/2024 10:41 PM CDT us Alex Bailey MD LAB BLOOD ORDERABLES Final Resu lt [facility] [place] [address] * Protime-INR (11/27/2024 9:44 PM CDT) PT 10.2 9.7 - 13.0 sec INR 0.95 0.90 - 1.20 [facility] Comment: Interpretive data Oral anticoagulant therapeutic ranges: Venous thromboembolism prophylaxis or treatment: 2.0-3.0 CARDIOLOGY Standard range: 2.0-3.0 High-intensity range: 2.5-3.5 Refer to indication-specific guidelines for appropriate target ranges for prosthetic heart valve replacement. Current interpretive data was last revised on 2019. Blood 11/27/2024 9:44 PM CDT 11/27/2024 10:45 PM CDT Lee Elena MD LAB BLOOD ORDERABLES Krystyna l Result Performing Organization Address City/[facility] Co de Phone Number [facility] [place] [address] * (ABNORMAL) Phosphorus (11/27/2024 9:44 PM CDT) Phosphorus, pl 6.6(H) 2.3 - 4.5 mg/dL Blood 11/27/2024 9:44 PM CDT 11/27/2024 10:41 PM CDT Lee Elena MD LAB BLOOD ORDERABLES Krystyna l Result Performing Organization Address [facility] Co de Phone Number [facility] [place] [address] * Magnesium (11/27/2024 9:44 PM CDT) Magnesium 1.6 1.4 - 2.5 mg/dL Blood 11/27/2024 9:44 PM CDT 11/27/2024 10:41 PM CDT Lee Elena MD LAB BLOOD ORDERABLES Krystyna l Result Performing Organization Address City/[facility] Co de Phone Number [facility] [place] [address] * (ABNORMAL) Hepatic function panel (11/27/2024 9:44 PM CDT) [facility] Bilirubin, total 0.4 0.1 - 1.2 mg/dL Bilirubin, direct 0.2 0.1 - 0.3 mg/dL [facility] Protein, pl 7.3 6.5 - 8.5 g/dL [facility] Albumin 3.4(L) 3.5 - 5.0 g/dL [facility] Alk phos 133(H) 40 - 130 Units/L [facility] ALT 17 7 - 45 Units/L [facility] AST 36 10 - 45 Units/L [facility] Blood 11/27/2024 9:44 PM CDT 11/27/2024 10:41 PM CDT us Lee Elena MD LAB BLOOD ORDERABLES Krystyna l Result [facility] [place] [address] * (ABNORMAL) Basic metabolic panel (11/27/2024 9:44 PM CDT) [facility] Sodium 139 135 - 145 mmol/L Potassium, pl 4.3 3.3 - 4.9 mmol/L [facility] Chloride 101 97 - 110 mmol/L [facility] CO2 31 22 - 32 mmol/L [facility] Anion gap 7 2 - 15 mmol/L [facility] BUN 18 6 - 25 mg/dL [facility] Creatinine 0.50(L) 0.60 - 1.10 mg/dL [facility] Glucose 99 70 - 199 mg/dL [facility] Comment: Interpretive Data Fasting glucose >/= [...] 2022. Calcium 10.0 8.5 - 10.3 mg/dL [facility] Blood 11/27/2024 9:44 PM CDT 11/27/2024 10:41 PM CDT Lee Elena MD LAB BLOOD ORDERABLES Krystyna l Result Performing Organization Address [facility] Co de Phone Number [facility] [place] [address] * eGFR (11/26/2024 9:38 PM CDT) eGFR [...] ORDERABLES Krystyna l Result Performing Organization Address [facility]/ZIP Co de Phone Number [facility] [place] [address] * (ABNORMAL) Differential, auto (11/26/2024 9:38 PM CDT) Pathologist [facility] Neutrophil abs 2.02 1.50 - 6.50 K/cumm Imm gran abs 0.03 0.00 - 0.10 K/cumm [facility] Lymphocyte abs 3.04 0.80 - 3.30 K/cumm [facility] Monocyte abs 0.56 0.20 - 0.80 K/cumm [facility] Eosinophil abs 0.10 0.00 - 0.50 K/cumm [facility] Basophil abs 0.11(H) 0.00 - 0.10 K/cumm [facility] Neutrophil pct 34.4 % [facility] Comment: Interpretive Data Percent cell count reference ranges are not reported, since discordance with absolute values may lead to misinterpretation of CBC data. Current Interpretive Data was last revised on 2017. Imm gran pct 0.5 % [facility] Comment: Interpretive Data Percent cell count reference ranges are not reported, since discordance with absolute values may lead to misinterpretation of CBC data. Current Interpretive Data was last revised on 2017. Lymphocyte pct 51.9 % [facility] Comment: Interpretive Data Percent cell count reference ranges are not reported, since discordance with absolute values may lead to misinterpretation of CBC data. Current Interpretive Data was last revised on 2017. Monocyte pct 9.6 % [facility] Comment: Interpretive Data Percent cell count reference ranges are not reported, since discordance with absolute values may lead to misinterpretation of CBC data. Current Interpretive Data was last revised on 2017. Eosinophil pct 1.7 % [facility] Comment: Interpretive Data Percent cell count reference ranges are not reported, since discordance with absolute values may lead to misinterpretation of CBC data. Current Interpretive Data was last revised on 2017. Basophil pct 1.9 % [facility] Comment: Interpretive Data Percent cell count reference ranges are not reported, since discordance with absolute values may lead to misinterpretation of CBC data. Current Interpretive Data was last revised on 2017. Blood 11/26/2024 9:38 PM CDT 11/26/2024 10:36 PM CDT Lee Elena MD LAB BLOOD ORDERABLES Krystyna l Result Performing Organization Address [facility] Co de Phone Number [facility] [place] [address] * (ABNORMAL) CBC with auto differential (11/26/2024 9:38 PM CDT) WBC 5.86 3.80 - 9.90 K/cumm Hgb 9.7(L) 11.9 - 15.5 g/dL [facility] Hct 29.7(L) 35.6 - 45.5 % [facility] Plt 398 150 - 400 K/cumm [facility] MPV 9.2 9.1 - 12.3 fL [facility] RBC 2.87(L) 3.90 - 5.20 M/cumm [facility] MCV 103.5(H) 81.3 - 96.4 fL [facility] MCH 33.8(H) 27.1 - 33.3 pg [facility] MCHC 32.7 32.3 - 35.7 g/dL [facility] RDW CV 18.7(H) 11.1 - 14.9 % [facility] RDW SD 71.5(H) 35.7 - 48.1 fL [facility] NRBC abs 0.00 0.00 - 0.01 K/cumm [facility] Blood 11/26/2024 9:38 PM CDT 11/26/2024 10:36 PM CDT Lee Elena MD LAB BLOOD ORDERABLES Krystyna l Result Performing Organization Address [facility]/ZIP Co de Phone Number [facility] [place], [place] [phone] * (ABNORMAL) Protime-INR (11/26/2024 9:38 PM CDT) PT 9.5(L) 9.7 - 13.0 sec INR 0.88(L) 0.90 - 1.20 [facility] Comment: Interpretive data Oral anticoagulant therapeutic ranges: Venous thromboembolism prophylaxis or treatment: 2.0-3.0 CARDIOLOGY Standard range: 2.0-3.0 High-intensity range: 2.5-3.5 Refer to indication-specific guidelines for appropriate target ranges for prosthetic heart valve replacement. Current interpretive data was last revised on 2019. Blood 11/26/2024 9:38 PM CDT 11/26/2024 10:43 PM CDT Lee Elena MD LAB BLOOD ORDERABLES Krystyna l Result Performing Organization Address City/[facility] Co de Phone Number [facility] [place] [address] * (ABNORMAL) Phosphorus (11/26/2024 9:38 PM CDT) Phosphorus, pl 5.7(H) 2.3 - 4.5 mg/dL Blood 11/26/2024 9:38 PM CDT 11/26/2024 10:42 PM CDT Lee Elena MD LAB BLOOD ORDERABLES Krystyna l Result Performing Organization Address [facility] Co de Phone Number [facility] [place] [address] * Magnesium (11/26/2024 9:38 PM CDT) Magnesium 2.1 1.4 - 2.5 mg/dL Blood 11/26/2024 9:38 PM CDT 11/26/2024 10:42 PM CDT Lee Elena MD LAB BLOOD ORDERABLES Krystyna l Result Performing Organization Address [facility] Co de Phone Number [facility] [employer] [place], [place] [id number] * (ABNORMAL) Hepatic function panel (11/26/2024 9:38 PM CDT) Pathologist [facility] [place] Bilirubin, total 0.3 0.1 - 1.2 mg/dL Bilirubin, direct 0.2 0.1 - 0.3 mg/dL [facility] Protein, pl 6.5 6.5 - 8.5 g/dL [facility] Albumin 2.8(L) 3.5 - 5.0 g/dL [facility] Alk phos 132(H) 40 - 130 Units/L [facility] ALT 17 7 - 45 Units/L [facility] AST 38 10 - 45 Units/L [facility] Blood 11/26/2024 9:38 PM CDT 11/26/2024 10:42 PM CDT us Lee Elena MD LAB BLOOD ORDERABLES Krystyna l Result [facility] [place] [address] * (ABNORMAL) Basic metabolic panel (11/26/2024 9:38 PM CDT) Pathologist [facility] [place] Sodium 141 135 - 145 mmol/L Potassium, pl 4.1 3.3 - 4.9 mmol/L [facility] Chloride 101 97 - 110 mmol/L [facility] CO2 29 22 - 32 mmol/L [facility] Anion gap 11 2 - 15 mmol/L [facility] BUN 15 6 - 25 mg/dL [facility] Creatinine 0.54(L) 0.60 - 1.10 mg/dL [facility] Glucose 89 70 - 199 mg/dL [facility] Comment: Interpretive Data Fasting glucose >/= [...] Calcium 9.1 8.5 - 10.3 mg/dL [facility] Blood 11/26/2024 9:38 PM CDT 11/26/2024 10:42 PM CDT us Lee Elena MD LAB BLOOD ORDERABLES Krystyna mira Result [facility] [place] [address] * TRANSTHORACIC ECHO (TTE) LIMITED/FOLLOW UP W LTD DOPPLER/CF W CONTRAST (11/26/2024 1:54 PM CDT) Estimated EF 55-60 % CONS SCIMAGE Anatomical Region Laterality Modality Ultrasound 11/26/2024 1:05 PM CDT Narrative 11/26/2024 2:37 PM CDT [facility] [place] [address] Transthoracic Echocardiographic Report Patient Name: HAYLEY LEÓN L : 1990 (34y 9m) Gender: F Study Date: 11/26/2024 01:05:04 PM Ht(Inch): 61 Wt(Lb): 98.1 BSA: 1.38 [employer] Machine Operator: Lise De Anda Location: [id number] Order Provider: ALEX BAILEY Heart Rate: 72 [...] Procedure Note Jim Malloy MD - 11/26/2024 [facility] [place] [address] Transthoracic Echocardiographic Report Patient Name: HAYLEY LEÓN L : 1990 (34y 9m) Gender: F Study Date: 11/26/2024 01:05:04 PM Ht(Inch): 61 Wt(Lb): 98.1 BSA: 1.38 [employer] Machine Operator: Lise De Anda Location: [id number] Order Provider:ALEX BAILEY Heart Rate: 72 BMI: [...] * POCT glucose (11/26/2024 7:38 AM CDT) [facility] Glucose, POC 107 70 - 199 mg/dL Blood 11/26/2024 7:38 AM CDT 11/26/2024 7:38 AM CDT us Alex Bailey MD LAB POCT ORDERABLES - DEVICE Fi nal Result [facility] [place] [address] * eGFR (11/25/2024 9:19 PM CDT) [facility] eGFR >90 >=60 mL/min/1. 73 m2 Comment: [...] MD LAB BLOOD ORDERABLES Krystyna meyers Result [facility] [place] [address] * Differential, auto (11/25/2024 9:19 PM CDT) Neutrophil abs 1.90 1.50 - 6.50 K/cumm Imm gran abs 0.02 0.00 - 0.10 K/cumm [facility] Lymphocyte abs 2.86 0.80 - 3.30 K/cumm [facility] Monocyte abs 0.53 0.20 - 0.80 K/cumm [facility] Eosinophil abs 0.11 0.00 - 0.50 K/cumm [facility] Basophil abs 0.09 0.00 - 0.10 K/cumm [facility] Neutrophil pct 34.5 % [facility] Comment: Interpretive Data Percent cell count reference ranges are not reported, since discordance with absolute values may lead to misinterpretation of CBC data. Current Interpretive Data was last revised on 2017. Imm gran pct 0.4 % [facility] Comment: Interpretive Data Percent cell count reference ranges are not reported, since discordance with absolute values may lead to misinterpretation of CBC data. Current Interpretive Data was last revised on 2017. Lymphocyte pct 51.9 % [facility] Comment: Interpretive Data Percent cell count reference ranges are not reported, since discordance with absolute values may lead to misinterpretation of CBC data. Current Interpretive Data was last revised on 2017. Monocyte pct 9.6 % [facility] Comment: Interpretive Data Percent cell count reference ranges are not reported, since discordance with absolute values may lead to misinterpretation of CBC data. Current Interpretive Data was last revised on 2017. Eosinophil pct 2.0 % [facility] Comment: Interpretive Data Percent cell count reference ranges are not reported, since discordance with absolute values may lead to misinterpretation of CBC data. Current Interpretive Data was last revised on 2017. Basophil pct 1.6 % [facility] Comment: Interpretive Data Percent cell count reference ranges are not reported, since discordance with absolute values may lead to misinterpretation of CBC data. Current Interpretive Data was last revised on 2017. Blood 11/25/2024 9:19 PM CDT 11/25/2024 10:49 PM CDT us Lee Elena MD LAB BLOOD ORDERABLES Krystyna meyers Result [facility] [place] [address] * (ABNORMAL) CBC with auto differential (11/25/2024 9:19 PM CDT) WBC 5.51 3.80 - 9.90 K/cumm Hgb 10.2(L) 11.9 - 15.5 g/dL [facility] Hct 31.9(L) 35.6 - 45.5 % [facility] Plt 466(H) 150 - 400 K/cumm [facility] MPV 9.4 9.1 - 12.3 fL [facility] RBC 3.06(L) 3.90 - 5.20 M/cumm [facility] MCV 104.2(H) 81.3 - 96.4 fL [facility] MCH 33.3 27.1 - 33.3 pg [facility] MCHC 32.0(L) 32.3 - 35.7 g/dL [facility] RDW CV 19.1(H) 11.1 - 14.9 % [facility] RDW SD 72.8(H) 35.7 - 48.1 fL [facility] NRBC abs 0.00 0.00 - 0.01 K/cumm [facility] Blood 11/25/2024 9:19 PM CDT 11/25/2024 10:49 PM CDT Lee Elena MD LAB BLOOD ORDERABLES Krystyna l Result Performing Organization Address City/[facility] Co de Phone Number [facility] [place], [place] [phone] * Protime-INR (11/25/2024 9:19 PM CDT) PT 10.0 9.7 - 13.0 sec INR 0.93 0.90 - 1.20 [facility] Comment: Interpretive data Oral anticoagulant therapeutic ranges: Venous thromboembolism prophylaxis or treatment: 2.0-3.0 CARDIOLOGY Standard range: 2.0-3.0 High-intensity range: 2.5-3.5 Refer to indication-specific guidelines for appropriate target ranges for prosthetic heart valve replacement. Current interpretive data was last revised on 2019. Blood 11/25/2024 9:19 PM CDT 11/25/2024 10:46 PM CDT Lee Elena MD LAB BLOOD ORDERABLES Krystyna l Result Performing Organization Address [facility] Co de Phone Number [facility] [place], [place] [phone] * (ABNORMAL) Phosphorus (11/25/2024 9:19 PM CDT) Phosphorus, pl 5.2(H) 2.3 - 4.5 mg/dL Blood 11/25/2024 9:19 PM CDT 11/25/2024 10:47 PM CDT Lee Elena MD LAB BLOOD ORDERABLES Krystyna l Result [facility] [place] [address] * Magnesium (11/25/2024 9:19 PM CDT) Pathologist [facility] [place] Magnesium 1.6 1.4 - 2.5 mg/dL Blood 11/25/2024 9:19 PM CDT 11/25/2024 10:47 PM CDT Lee Elena MD LAB BLOOD ORDERABLES Krystyna l Result Performing Organization Address [facility]/ZIP Co de Phone Number [facility] [place] [address] * (ABNORMAL) Hepatic function panel (11/25/2024 9:19 PM CDT) Bilirubin, total 0.4 0.1 - 1.2 mg/dL Bilirubin, direct 0.2 0.1 - 0.3 mg/dL [facility] Protein, pl 6.8 6.5 - 8.5 g/dL [facility] Albumin 3.0(L) 3.5 - 5.0 g/dL [facility] Alk phos 142(H) 40 - 130 Units/L [facility] ALT 16 7 - 45 Units/L [facility] AST 35 10 - 45 Units/L [facility] Blood 11/25/2024 9:19 PM CDT 11/25/2024 10:47 PM CDT Lee Elena MD LAB BLOOD ORDERABLES Krystyna l Result Performing Organization Address City/[facility]/ZIP Co de Phone Number [facility] [place] [address] * (ABNORMAL) Basic metabolic panel (11/25/2024 9:19 PM CDT) Pathologist [facility] [place] Sodium 143 135 - 145 mmol/L Potassium, pl 4.3 3.3 - 4.9 mmol/L [facility] Chloride 104 97 - 110 mmol/L [facility] CO2 29 22 - 32 mmol/L [facility] Anion gap 10 2 - 15 mmol/L [facility] BUN 16 6 - 25 mg/dL [facility] Creatinine 0.46(L) 0.60 - 1.10 mg/dL [facility] Glucose 99 70 - 199 mg/dL [facility] Comment: Interpretive Data Fasting glucose >/= [...] 2022. Calcium 9.5 8.5 - 10.3 mg/dL [facility] Blood 11/25/2024 9:19 PM CDT 11/25/2024 10:47 PM CDT us Lee Elena MD LAB BLOOD ORDERABLES Krystyna meyers Result [facility] Department [place] [address] * eGFR (11/24/2024 9:18 PM CDT) Pathologist [facility] [place] eGFR >90 >=60 mL/min/1. 73 m2 Comment: [...] MD LAB BLOOD ORDERABLES Krystyna meyers Result [facility] [place] [address] * Differential, auto (11/24/2024 9:18 PM CDT) Neutrophil abs 1.96 1.50 - 6.50 K/cumm Imm gran abs 0.04 0.00 - 0.10 K/cumm [facility] Lymphocyte abs 2.69 0.80 - 3.30 K/cumm [facility] Monocyte abs 0.52 0.20 - 0.80 K/cumm [facility] Eosinophil abs 0.09 0.00 - 0.50 K/cumm [facility] Basophil abs 0.08 0.00 - 0.10 K/cumm [facility] Neutrophil pct 36.4 % [facility] Comment: Interpretive Data Percent cell count reference ranges are not reported, since discordance with absolute values may lead to misinterpretation of CBC data. Current Interpretive Data was last revised on 2017. Imm gran pct 0.7 % [facility] Comment: Interpretive Data Percent cell count reference ranges are not reported, since discordance with absolute values may lead to misinterpretation of CBC data. Current Interpretive Data was last revised on 2017. Lymphocyte pct 50.0 % [facility] Comment: Interpretive Data Percent cell count reference ranges are not reported, since discordance with absolute values may lead to misinterpretation of CBC data. Current Interpretive Data was last revised on 2017. Monocyte pct 9.7 % [facility] Comment: Interpretive Data Percent cell count reference ranges are not reported, since discordance with absolute values may lead to misinterpretation of CBC data. Current Interpretive Data was last revised on 2017. Eosinophil pct 1.7 % [facility] Comment: Interpretive Data Percent cell count reference ranges are not reported, since discordance with absolute values may lead to misinterpretation of CBC data. Current Interpretive Data was last revised on 2017. Basophil pct 1.5 % [facility] Comment: Interpretive Data Percent cell count reference ranges are not reported, since discordance with absolute values may lead to misinterpretation of CBC data. Current Interpretive Data was last revised on 2017. Blood 11/24/2024 9:18 PM CDT 11/24/2024 10:00 PM CDT us Lee Elena MD LAB BLOOD ORDERABLES Krystyna meyers Result [facility] One [facility] [place] [address] * (ABNORMAL) CBC with auto differential (11/24/2024 9:18 PM CDT) WBC 5.38 3.80 - 9.90 K/cumm Hgb 9.4(L) 11.9 - 15.5 g/dL [facility] Hct 28.7(L) 35.6 - 45.5 % [facility] Plt 437(H) 150 - 400 K/cumm [facility] MPV 9.0(L) 9.1 - 12.3 fL [facility] RBC 2.80(L) 3.90 - 5.20 M/cumm [facility] MCV 102.5(H) 81.3 - 96.4 fL [facility] MCH 33.6(H) 27.1 - 33.3 pg [facility] MCHC 32.8 32.3 - 35.7 g/dL [facility] RDW CV 19.4(H) 11.1 - 14.9 % [facility] RDW SD 73.4(H) 35.7 - 48.1 fL [facility] NRBC abs 0.00 0.00 - 0.01 K/cumm [facility] Blood 11/24/2024 9:18 PM CDT 11/24/2024 10:00 PM CDT Lee Elena MD LAB BLOOD ORDERABLES Krystyna l Result Performing Organization Address [facility] Co de Phone Number [facility] [place] [address] * Protime-INR (11/24/2024 9:18 PM CDT) PT 10.1 9.7 - 13.0 sec INR 0.94 0.90 - 1.20 [facility] Comment: Interpretive data Oral anticoagulant therapeutic ranges: Venous thromboembolism prophylaxis or treatment: 2.0-3.0 CARDIOLOGY Standard range: 2.0-3.0 High-intensity range: 2.5-3.5 Refer to indication-specific guidelines for appropriate target ranges for prosthetic heart valve replacement. Current interpretive data was last revised on 2019. Blood 11/24/2024 9:18 PM CDT 11/24/2024 10:04 PM CDT Lee Elena MD LAB BLOOD ORDERABLES Krystyna l Result Performing Organization Address [facility] Co de Phone Number [facility] [place] [address] * (ABNORMAL) Phosphorus (11/24/2024 9:18 PM CDT) Phosphorus, pl 4.7(H) 2.3 - 4.5 mg/dL Blood 11/24/2024 9:18 PM CDT 11/24/2024 10:00 PM CDT Lee Elena MD LAB BLOOD ORDERABLES Krystyna l Result [facility] [place] [address] * Magnesium (11/24/2024 9:18 PM CDT) Pathologist [facility] [place] Magnesium 2.0 1.4 - 2.5 mg/dL Blood 11/24/2024 9:18 PM CDT 11/24/2024 10:00 PM CDT Lee Elena MD LAB BLOOD ORDERABLES Krystyna l Result Performing Organization Address [facility] Co de Phone Number [facility] [place] [address] * (ABNORMAL) Hepatic function panel (11/24/2024 9:18 PM CDT) Bilirubin, total 0.3 0.1 - 1.2 mg/dL Bilirubin, direct 0.2 0.1 - 0.3 mg/dL [facility] Protein, pl 6.4(L) 6.5 - 8.5 g/dL [facility] Albumin 2.8(L) 3.5 - 5.0 g/dL [facility] Alk phos 148(H) 40 - 130 Units/L [facility] ALT 14 7 - 45 Units/L [facility] AST 38 10 - 45 Units/L [facility] Blood 11/24/2024 9:18 PM CDT 11/24/2024 10:00 PM CDT Lee Elena MD LAB BLOOD ORDERABLES Krystyna l Result Performing Organization Address City/[facility]/ZIP Co de Phone Number [facility] [place] [address] * (ABNORMAL) Basic metabolic panel (11/24/2024 9:18 PM CDT) Sodium 142 135 - 145 mmol/L Potassium, pl 4.1 3.3 - 4.9 mmol/L [facility] Chloride 104 97 - 110 mmol/L [facility] CO2 30 22 - 32 mmol/L [facility] Anion gap 8 2 - 15 mmol/L [facility] BUN 16 6 - 25 mg/dL [facility] Creatinine 0.51(L) 0.60 - 1.10 mg/dL [facility] Glucose 101 70 - 199 mg/dL [facility] Comment: Interpretive Data Fasting glucose >/= [...] 2022. Calcium 9.0 8.5 - 10.3 mg/dL [facility] Blood 11/24/2024 9:18 PM CDT 11/24/2024 10:00 PM CDT us Lee Elena MD LAB BLOOD ORDERABLES Krystyna l Result Performing Organization Address City/[facility]/ZIP Co de Phone Number [facility] One [facility] [place] [address] * POCT glucose (11/24/2024 7:49 PM CDT) Glucose, POC 104 70 - 199 mg/dL Blood 11/24/2024 7:49 PM CDT 11/24/2024 7:49 PM CDT us Alex Bailey MD LAB POCT ORDERABLES - DEVICE Fi nal Result Performing Organization Address City/[facility]/ZIP Co de Phone Number [facility] One [facility] [place] [address] * ECG 12 lead (11/24/2024 7:01 AM CDT) Ventricular Rate EKG/Min 77 BPM [facility] Atrial Rate 77 BPM [facility] [place]-Interval (MSEC) 134 ms [facility] QRS-Interval (MSEC) 70 ms [facility] QT-Interval (MSEC) 456 ms [facility] QTc 516 ms [facility] P [place] 38 degrees [facility] R [place] 36 degrees [facility] T [place] 137 degrees [facility] Diagnosis Normal sinus rhythm Low voltage QRS T wave abnormality, consider lateral ischemia Prolonged QT Abnormal ECG When compared with ECG of 23-NOV-2024 18:23, (unconfirmed) No significant change was found Confirmed by SHALINI RODRIGUEZ M.D ([id number]) on 11/27/2024 12:19:52 PM [facility] 11/24/2024 7:01 AM CDT 11/27/2024 12:19 PM CDT us Lee Elena MD ECG ORDERABLES Final Res ult [facility] * eGFR (11/23/2024 10:10 PM CDT) eGFR [...] MD LAB BLOOD ORDERABLES Krystyna meyers Result [facility] One [facility] [place] [address] * Differential, auto (11/23/2024 10:10 PM CDT) Neutrophil abs 6.22 1.50 - 6.50 K/cumm Imm gran abs 0.05 0.00 - 0.10 K/cumm [facility] Lymphocyte abs 2.05 0.80 - 3.30 K/cumm [facility] Monocyte abs 0.66 0.20 - 0.80 K/cumm [facility] Eosinophil abs 0.10 0.00 - 0.50 K/cumm [facility] Basophil abs 0.08 0.00 - 0.10 K/cumm [facility] Neutrophil pct 67.9 % [facility] Comment: Interpretive Data Percent cell count reference ranges are not reported, since discordance with absolute values may lead to misinterpretation of CBC data. Current Interpretive Data was last revised on 2017. Imm gran pct 0.5 % [facility] Comment: Interpretive Data Percent cell count reference ranges are not reported, since discordance with absolute values may lead to misinterpretation of CBC data. Current Interpretive Data was last revised on 2017. Lymphocyte pct 22.4 % [facility] Comment: Interpretive Data Percent cell count reference ranges are not reported, since discordance with absolute values may lead to misinterpretation of CBC data. Current Interpretive Data was last revised on 2017. Monocyte pct 7.2 % [facility] Comment: Interpretive Data Percent cell count reference ranges are not reported, since discordance with absolute values may lead to misinterpretation of CBC data. Current Interpretive Data was last revised on 2017. Eosinophil pct 1.1 % [facility] Comment: Interpretive Data Percent cell count reference ranges are not reported, since discordance with absolute values may lead to misinterpretation of CBC data. Current Interpretive Data was last revised on 2017. Basophil pct 0.9 % [facility] Comment: Interpretive Data Percent cell count reference ranges are not reported, since discordance with absolute values may lead to misinterpretation of CBC data. Current Interpretive Data was last revised on 2017. Blood 11/23/2024 10:1 0 PM CDT 11/23/2024 11:09 PM CDT us Lee Elena MD LAB BLOOD ORDERABLES Krystyna meyers Result [facility] One [facility] Department [place] [id number] * (ABNORMAL) CBC with auto differential (11/23/2024 10:10 PM CDT) WBC 9.16 3.80 - 9.90 K/cumm Hgb 9.8(L) 11.9 - 15.5 g/dL [facility] Hct 29.9(L) 35.6 - 45.5 % [facility] Plt 483(H) 150 - 400 K/cumm [facility] MPV 9.2 9.1 - 12.3 fL [facility] RBC 2.92(L) 3.90 - 5.20 M/cumm [facility] MCV 102.4(H) 81.3 - 96.4 fL [facility] MCH 33.6(H) 27.1 - 33.3 pg [facility] MCHC 32.8 32.3 - 35.7 g/dL [facility] RDW CV 19.3(H) 11.1 - 14.9 % [facility] RDW SD 72.0(H) 35.7 - 48.1 fL [facility] NRBC abs 0.00 0.00 - 0.01 K/cumm [facility] Blood 11/23/2024 10:1 0 PM CDT 11/23/2024 11:09 PM CDT Lee Elena MD LAB BLOOD ORDERABLES Krystyna l Result Performing Organization Address [facility] Co de Phone Number [facility] [place] [address] * Protime-INR (11/23/2024 10:10 PM CDT) PT 10.5 9.7 - 13.0 sec INR 0.97 0.90 - 1.20 [facility] Comment: Interpretive data Oral anticoagulant therapeutic [...] ORDERABLES Krystyna l Result Performing Organization Address [facility] de Phone Number [facility] [place] [address] * (ABNORMAL) Phosphorus (11/23/2024 10:10 PM CDT) Pathologist [facility] [place] Phosphorus, pl 5.5(H) 2.3 - 4.5 mg/dL Blood 11/23/2024 10:1 0 PM CDT 11/23/2024 11:09 PM CDT Lee Elena MD LAB BLOOD ORDERABLES Krystyna l Result Performing Organization Address City/[facility] Co de Phone Number [facility] [place] [address] * Magnesium (11/23/2024 10:10 PM CDT) [facility] Magnesium 1.5 1.4 - 2.5 mg/dL Blood 11/23/2024 10:1 0 PM CDT 11/23/2024 11:09 PM CDT Lee Elena MD LAB BLOOD ORDERABLES Krystyna l Result Performing Organization Address [facility] de Phone Number [facility] [place] [address] * (ABNORMAL) Hepatic function panel (11/23/2024 10:10 PM CDT) [facility] Bilirubin, total 0.4 0.1 - 1.2 mg/dL Bilirubin, direct 0.2 0.1 - 0.3 mg/dL [facility] Protein, pl 6.3(L) 6.5 - 8.5 g/dL [facility] Albumin 2.9(L) 3.5 - 5.0 g/dL [facility] Alk phos 143(H) 40 - 130 Units/L [facility] ALT 14 7 - 45 Units/L [facility] AST 37 10 - 45 Units/L [facility] Blood 11/23/2024 10:1 0 PM CDT 11/23/2024 11:09 PM CDT Lee Elena MD LAB BLOOD ORDERABLES Krystyna l Result Performing Organization Address [facility] de Phone Number [facility] Department [place] [address] * (ABNORMAL) Basic metabolic panel (11/23/2024 10:10 PM CDT) [facility] Sodium 140 135 - 145 mmol/L Potassium, pl 3.6 3.3 - 4.9 mmol/L [facility] Chloride 100 97 - 110 mmol/L [facility] CO2 31 22 - 32 mmol/L [facility] Anion gap 9 2 - 15 mmol/L [facility] BUN 15 6 - 25 mg/dL [facility] Creatinine 0.52(L) 0.60 - 1.10 mg/dL [facility] Glucose 90 70 - 199 mg/dL [facility] Comment: Interpretive Data Fasting glucose >/= [...] 2022. Calcium 9.5 8.5 - 10.3 mg/dL [facility] Blood 11/23/2024 10:1 0 PM CDT 11/23/2024 11:09 PM CDT us Lee Elena MD LAB BLOOD ORDERABLES Krystyna l Result Performing Organization Address City/[facility]/ZIP Co de Phone Number [facility] [place] [address] * POCT glucose (11/23/2024 9:14 PM CDT) Glucose, POC 107 70 - 199 mg/dL Blood 11/23/2024 9:14 PM CDT 11/23/2024 9:14 PM CDT us Alex Bailey MD LAB POCT ORDERABLES - DEVICE Fi nal Result [facility] [place] [address] * ECG 12 lead (11/23/2024 6:23 PM CDT) Ventricular Rate EKG/Min 84 BPM [facility] Atrial Rate 84 BPM [facility] [place]-Interval (MSEC) 118 ms [facility] QRS-Interval (MSEC) 70 ms [facility] QT-Interval (MSEC) 426 ms [facility] QTc 503 ms [facility] P [place] 23 degrees [facility] R [place] 44 degrees [facility] T [place] 136 degrees [facility] Diagnosis Normal sinus rhythm T wave abnormality, consider lateral ischemia Prolonged QT Abnormal ECG When compared with ECG of 20-NOV-2024 13:20, No significant change was found Confirmed by SHALINI RODRIGUEZ M.D ([id number]) on 11/27/2024 12:19:17 PM [facility] 11/23/2024 6:23 PM CDT 11/27/2024 12:19 PM CDT us Lee Elena MD ECG ORDERABLES Final Res ult [facility] * eGFR (11/22/2024 9:37 PM CDT) eGFR [...] MD LAB BLOOD ORDERABLES Krystyna mira Result [facility] [place] [address] * (ABNORMAL) Differential, auto (11/22/2024 9:37 PM CDT) Neutrophil abs 3.27 1.50 - 6.50 K/cumm Imm gran abs 0.06 0.00 - 0.10 K/cumm [facility] Lymphocyte abs 2.86 0.80 - 3.30 K/cumm [facility] Monocyte abs 0.70 0.20 - 0.80 K/cumm [facility] Eosinophil abs 0.15 0.00 - 0.50 K/cumm [facility] Basophil abs 0.11(H) 0.00 - 0.10 K/cumm [facility] Neutrophil pct 45.8 % [facility] Comment: Interpretive Data Percent cell count reference ranges are not reported, since discordance with absolute values may lead to misinterpretation of CBC data. Current Interpretive Data was last revised on 2017. Imm gran pct 0.8 % [facility] Comment: Interpretive Data Percent cell count reference ranges are not reported, since discordance with absolute values may lead to misinterpretation of CBC data. Current Interpretive Data was last revised on 2017. Lymphocyte pct 40.0 % [facility] Comment: Interpretive Data Percent cell count reference ranges are not reported, since discordance with absolute values may lead to misinterpretation of CBC data. Current Interpretive Data was last revised on 2017. Monocyte pct 9.8 % [facility] Comment: Interpretive Data Percent cell count reference ranges are not reported, since discordance with absolute values may lead to misinterpretation of CBC data. Current Interpretive Data was last revised on 2017. Eosinophil pct 2.1 % [facility] Comment: Interpretive Data Percent cell count reference ranges are not reported, since discordance with absolute values may lead to misinterpretation of CBC data. Current Interpretive Data was last revised on 2017. Basophil pct 1.5 % [facility] Comment: Interpretive Data Percent cell count reference ranges are not reported, since discordance with absolute values may lead to misinterpretation of CBC data. Current Interpretive Data was last revised on 2017. Blood 11/22/2024 9:37 PM CDT 11/22/2024 10:34 PM CDT Lee Elena MD LAB BLOOD ORDERABLES Krystyna l Result Performing Organization Address [facility]/ZIP Co de Phone Number [facility] [place] [address] * (ABNORMAL) CBC with auto differential (11/22/2024 9:37 PM CDT) WBC 7.15 3.80 - 9.90 K/cumm Hgb 9.4(L) 11.9 - 15.5 g/dL [facility] Hct 28.9(L) 35.6 - 45.5 % [facility] Plt 542(H) 150 - 400 K/cumm [facility] MPV 9.4 9.1 - 12.3 fL [facility] RBC 2.81(L) 3.90 - 5.20 M/cumm [facility] MCV 102.8(H) 81.3 - 96.4 fL [facility] MCH 33.5(H) 27.1 - 33.3 pg [facility] MCHC 32.5 32.3 - 35.7 g/dL [facility] RDW CV 19.6(H) 11.1 - 14.9 % [facility] RDW SD 73.3(H) 35.7 - 48.1 fL [facility] NRBC abs 0.00 0.00 - 0.01 K/cumm [facility] Blood 11/22/2024 9:37 PM CDT 11/22/2024 10:34 PM CDT Lee Elena MD LAB BLOOD ORDERABLES Krystyna l Result Performing Organization Address [facility]/ZIP Co de Phone Number [facility] [place] [address] * Protime-INR (11/22/2024 9:37 PM CDT) PT 10.1 9.7 - 13.0 sec INR 0.94 0.90 - 1.20 [facility] Comment: Interpretive data Oral anticoagulant therapeutic ranges: Venous thromboembolism prophylaxis or treatment: 2.0-3.0 CARDIOLOGY Standard range: 2.0-3.0 High-intensity range: 2.5-3.5 Refer to indication-specific guidelines for appropriate target ranges for prosthetic heart valve replacement. Current interpretive data was last revised on 2019. Blood 11/22/2024 9:37 PM CDT 11/22/2024 10:54 PM CDT Lee Elena MD LAB BLOOD ORDERABLES Krystyna l Result Performing Organization Address [facility] Co de Phone Number [facility] Department [place] [address] * (ABNORMAL) Phosphorus (11/22/2024 9:37 PM CDT) Pathologist [facility] [place] Phosphorus, pl 4.9(H) 2.3 - 4.5 mg/dL Blood 11/22/2024 9:37 PM CDT 11/22/2024 10:33 PM CDT Lee Elena MD LAB BLOOD ORDERABLES Krystyna l Result [facility] [place] [address] * Magnesium (11/22/2024 9:37 PM CDT) Pathologist [facility] Magnesium 1.6 1.4 - 2.5 mg/dL Blood 11/22/2024 9:37 PM CDT 11/22/2024 10:33 PM CDT Lee Elena MD LAB BLOOD ORDERABLES Krystyna l Result Performing Organization Address City/[facility]/ZIP Co de Phone Number [facility] [place] [address] * (ABNORMAL) Hepatic function panel (11/22/2024 9:37 PM CDT) Bilirubin, total 0.4 0.1 - 1.2 mg/dL Bilirubin, direct 0.2 0.1 - 0.3 mg/dL [facility] Protein, pl 6.0(L) 6.5 - 8.5 g/dL [facility] Albumin 2.6(L) 3.5 - 5.0 g/dL [facility] Alk phos 163(H) 40 - 130 Units/L [facility] ALT 12 7 - 45 Units/L [facility] AST 41 10 - 45 Units/L [facility] Blood 11/22/2024 9:37 PM CDT 11/22/2024 10:33 PM CDT Lee Elena MD LAB BLOOD ORDERABLES Krystyna l Result Performing Organization Address [facility] Co de Phone Number [facility] Department [place] [address] * (ABNORMAL) Basic metabolic panel (11/22/2024 9:37 PM CDT) Pathologist [facility] Sodium 138 135 - 145 mmol/L Potassium, pl 4.3 3.3 - 4.9 mmol/L [facility] Chloride 97 97 - 110 mmol/L [facility] CO2 32 22 - 32 mmol/L [facility] Anion gap 9 2 - 15 mmol/L [facility] BUN 17 6 - 25 mg/dL [facility] Creatinine 0.52(L) 0.60 - 1.10 mg/dL [facility] Glucose 104 70 - 199 mg/dL [facility] Comment: Interpretive Data Fasting glucose >/= [...] LAB BLOOD ORDERABLES Krystyna l Result [facility] [place] [address] * eGFR (11/21/2024 10:49 PM CDT) eGFR [...] MD LAB BLOOD ORDERABLES Krystyna l Result [facility] [place] [address] * (ABNORMAL) Differential, auto (11/21/2024 10:49 PM CDT) Neutrophil abs 2.76 1.50 - 6.50 K/cumm Imm gran abs 0.05 0.00 - 0.10 K/cumm [facility] Lymphocyte abs 3.11 0.80 - 3.30 K/cumm [facility] Monocyte abs 0.61 0.20 - 0.80 K/cumm [facility] Eosinophil abs 0.17 0.00 - 0.50 K/cumm [facility] Basophil abs 0.14(H) 0.00 - 0.10 K/cumm [facility] Neutrophil pct 40.4 % [facility] Comment: Interpretive Data Percent cell count reference ranges are not reported, since discordance with absolute values may lead to misinterpretation of CBC data. Current Interpretive Data was last revised on 2017. Imm gran pct 0.7 % [facility] Comment: Interpretive Data Percent cell count reference ranges are not reported, since discordance with absolute values may lead to misinterpretation of CBC data. Current Interpretive Data was last revised on 2017. Lymphocyte pct 45.5 % [facility] Comment: Interpretive Data Percent cell count reference ranges are not reported, since discordance with absolute values may lead to misinterpretation of CBC data. Current Interpretive Data was last revised on 2017. Monocyte pct 8.9 % [facility] Comment: Interpretive Data Percent cell count reference ranges are not reported, since discordance with absolute values may lead to misinterpretation of CBC data. Current Interpretive Data was last revised on 2017. Eosinophil pct 2.5 % [facility] Comment: Interpretive Data Percent cell count reference ranges are not reported, since discordance with absolute values may lead to misinterpretation of CBC data. Current Interpretive Data was last revised on 2017. Basophil pct 2.0 % [facility] Comment: Interpretive Data Percent cell count reference ranges are not reported, since discordance with absolute values may lead to misinterpretation of CBC data. Current Interpretive Data was last revised on 2017. Blood 11/21/2024 10:4 9 PM CDT 11/22/2024 12:33 AM CDT Lee Elena MD LAB BLOOD ORDERABLES Krystyna l Result Performing Organization Address [facility] Co de Phone Number [facility] [place] [address] * (ABNORMAL) CBC with auto differential (11/21/2024 10:49 PM CDT) WBC 6.84 3.80 - 9.90 K/cumm Hgb 10.1(L) 11.9 - 15.5 g/dL [facility] Hct 30.3(L) 35.6 - 45.5 % [facility] Plt 610(H) 150 - 400 K/cumm [facility] MPV 9.3 9.1 - 12.3 fL [facility] RBC 2.98(L) 3.90 - 5.20 M/cumm [facility] MCV 101.7(H) 81.3 - 96.4 fL [facility] MCH 33.9(H) 27.1 - 33.3 pg [facility] MCHC 33.3 32.3 - 35.7 g/dL [facility] RDW CV 19.7(H) 11.1 - 14.9 % [facility] RDW SD 71.9(H) 35.7 - 48.1 fL [facility] NRBC abs 0.00 0.00 - 0.01 K/cumm [facility] Blood 11/21/2024 10:4 9 PM CDT 11/22/2024 12:33 AM CDT Lee Elena MD LAB BLOOD ORDERABLES Krystyna l Result Performing Organization Address City/[facility]/ZIP Co de Phone Number [facility] [place] [address] * Protime-INR (11/21/2024 10:49 PM CDT) PT 10.7 9.7 - 13.0 sec INR 0.99 0.90 - 1.20 [facility] Comment: Interpretive data Oral anticoagulant therapeutic [...] ORDERABLES Krystyna l Result Performing Organization Address [facility] de Phone Number [facility] [place] [address] * (ABNORMAL) Phosphorus (11/21/2024 10:49 PM CDT) Pathologist [facility] [place] Phosphorus, pl 5.4(H) 2.3 - 4.5 mg/dL Blood 11/21/2024 10:4 9 PM CDT 11/22/2024 12:32 AM CDT Result [facility] Lee Elena MD LAB BLOOD ORDERABLES Krystyna l Result Performing Organization Address City/[facility] de Phone Number [facility] [place] [address] * Magnesium (11/21/2024 10:49 PM CDT) Pathologist [facility] [place] Magnesium 1.8 1.4 - 2.5 mg/dL Blood 11/21/2024 10:4 9 PM CDT 11/22/2024 12:32 AM CDT Lee Elena MD LAB BLOOD ORDERABLES Krystyna l Result Performing Organization Address [facility] Co de Phone Number [facility] [place] [address] * (ABNORMAL) Hepatic function panel (11/21/2024 10:49 PM CDT) Pathologist [facility] [place] Bilirubin, total 0.4 0.1 - 1.2 mg/dL Bilirubin, direct 0.3 0.1 - 0.3 mg/dL [facility] Protein, pl 6.2(L) 6.5 - 8.5 g/dL [facility] Albumin 2.4(L) 3.5 - 5.0 g/dL [facility] Alk phos 173(H) 40 - 130 Units/L [facility] ALT 12 7 - 45 Units/L [facility] AST 41 10 - 45 Units/L [facility] Blood 11/21/2024 10:4 9 PM CDT 11/22/2024 12:32 AM CDT Lee Elena MD LAB BLOOD ORDERABLES Krystyna l Result Performing Organization Address [facility] de Phone Number [facility] Department [place] [address] * (ABNORMAL) Basic metabolic panel (11/21/2024 10:49 PM CDT) [facility] Sodium 141 135 - 145 mmol/L Potassium, pl 3.9 3.3 - 4.9 mmol/L [facility] Chloride 100 97 - 110 mmol/L [facility] CO2 31 22 - 32 mmol/L [facility] Anion gap 10 2 - 15 mmol/L [facility] BUN 16 6 - 25 mg/dL [facility] Creatinine 0.39(L) 0.60 - 1.10 mg/dL [facility] Glucose 96 70 - 199 mg/dL [facility] Comment: Interpretive Data Fasting glucose >/= [...] 2022. Calcium 9.1 8.5 - 10.3 mg/dL [facility] Blood 11/21/2024 10:4 9 PM CDT 11/22/2024 12:32 AM CDT us Lee Elena MD LAB BLOOD ORDERABLES Krystyna l Result [facility] Department [place] [address] * Potassium, whole blood (11/20/2024 10:45 PM CDT) Pathologist [facility] [place] Potassium, bld 4.0 3.3 - 4.9 mmol/L Blood 11/20/2024 10:4 5 PM CDT 11/20/2024 10:51 PM CDT us Martita Hussein MD LAB BLOOD ORDERABLE S Final Result Performing Organization Address City/[facility]/ZIP Co de Phone Number [facility] [place] [address] * eGFR (11/20/2024 7:07 PM CDT) Pathologist [facility] [place] eGFR >90 >=60 mL/min/1. 73 m2 Comment: [...] MD LAB BLOOD ORDERABLES Krystyna meyers Result [facility] [place] [address] * Differential, auto (11/20/2024 7:07 PM CDT) Neutrophil abs 3.09 1.50 - 6.50 K/cumm Imm gran abs 0.09 0.00 - 0.10 K/cumm [facility] Lymphocyte abs 3.30 0.80 - 3.30 K/cumm [facility] Monocyte abs 0.65 0.20 - 0.80 K/cumm [facility] Eosinophil abs 0.15 0.00 - 0.50 K/cumm [facility] Basophil abs 0.09 0.00 - 0.10 K/cumm [facility] Neutrophil pct 42.0 % [facility] Comment: Interpretive Data Percent cell count reference ranges are not reported, since discordance with absolute values may lead to misinterpretation of CBC data. Current Interpretive Data was last revised on 2017. Imm gran pct 1.2 % [facility] Comment: Interpretive Data Percent cell count reference ranges are not reported, since discordance with absolute values may lead to misinterpretation of CBC data. Current Interpretive Data was last revised on 2017. Lymphocyte pct 44.8 % [facility] Comment: Interpretive Data Percent cell count reference ranges are not reported, since discordance with absolute values may lead to misinterpretation of CBC data. Current Interpretive Data was last revised on 2017. Monocyte pct 8.8 % [facility] Comment: Interpretive Data Percent cell count reference ranges are not reported, since discordance with absolute values may lead to misinterpretation of CBC data. Current Interpretive Data was last revised on 2017. Eosinophil pct 2.0 % [facility] Comment: Interpretive Data Percent cell count reference ranges are not reported, since discordance with absolute values may lead to misinterpretation of CBC data. Current Interpretive Data was last revised on 2017. Basophil pct 1.2 % [facility] Comment: Interpretive Data Percent cell count reference ranges are not reported, since discordance with absolute values may lead to misinterpretation of CBC data. Current Interpretive Data was last revised on 2017. Blood 11/20/2024 7:07 PM CDT 11/20/2024 7:32 PM CDT us Lee Elena MD LAB BLOOD ORDERABLES Krystyna meyers Result [facility] [place] [address] * (ABNORMAL) CBC with auto differential (11/20/2024 7:07 PM CDT) WBC 7.37 3.80 - 9.90 K/cumm Hgb 10.1(L) 11.9 - 15.5 g/dL [facility] Hct 31.3(L) 35.6 - 45.5 % [facility] Plt 651(H) 150 - 400 K/cumm [facility] MPV 9.4 9.1 - 12.3 fL [facility] RBC 3.07(L) 3.90 - 5.20 M/cumm [facility] MCV 102.0(H) 81.3 - 96.4 fL [facility] MCH 32.9 27.1 - 33.3 pg [facility] MCHC 32.3 32.3 - 35.7 g/dL [facility] RDW CV 20.5(H) 11.1 - 14.9 % [facility] RDW SD 76.1(H) 35.7 - 48.1 fL [facility] NRBC abs 0.00 0.00 - 0.01 K/cumm [facility] Blood 11/20/2024 7:07 PM CDT 11/20/2024 7:32 PM CDT Lee Elena MD LAB BLOOD ORDERABLES Krystyna l Result Performing Organization Address [facility] de Phone Number [facility] [place] [address] * (ABNORMAL) aPTT (11/20/2024 7:07 PM CDT) aPTT 52(H) 28 - 38 sec Comment: Interpretive Data Heparin therapeutic range: 66.0 - 100.0 seconds. Range based on correlation with therapeutic heparin activity range of 0.3 - 0.7 Units/mL. Current interpretive data was last revised on 2023. Blood 11/20/2024 7:07 PM CDT 11/20/2024 7:38 PM CDT Narrative [facility] - 11/20/2024 7:48 PM CDT Baseline prior to enoxaparin initiation. Alex Bailey MD LAB BLOOD ORDERABLES Final Resu lt Performing Organization Address [facility] de Phone Number [facility] [place] [address] * Protime-INR (11/20/2024 7:07 PM CDT) PT 11.1 9.7 - 13.0 sec INR 1.03 0.90 - 1.20 [facility] Comment: Interpretive data Oral anticoagulant therapeutic ranges: Venous thromboembolism prophylaxis or treatment: 2.0-3.0 CARDIOLOGY Standard range: 2.0-3.0 High-intensity range: 2.5-3.5 Refer to indication-specific guidelines for appropriate target ranges for prosthetic heart valve replacement. Current interpretive data was last revised on 2019. Blood 11/20/2024 7:07 PM CDT 11/20/2024 7:34 PM CDT Lee Elena MD LAB BLOOD ORDERABLES Krystyna l Result Performing Organization Address [facility] Co de Phone Number [facility] [employer] [place], [place] [id number] * (ABNORMAL) Phosphorus (11/20/2024 7:07 PM CDT) Phosphorus, pl 5.4(H) 2.3 - 4.5 mg/dL Blood 11/20/2024 7:07 PM CDT 11/20/2024 7:32 PM CDT Lee Elena MD LAB BLOOD ORDERABLES Krystyna l Result Performing Organization Address [facility] Co de Phone Number [facility] [place] [address] * Magnesium (11/20/2024 7:07 PM CDT) Magnesium 1.7 1.4 - 2.5 mg/dL Blood 11/20/2024 7:07 PM CDT 11/20/2024 7:32 PM CDT Lee Elena MD LAB BLOOD ORDERABLES Krystyna l Result Performing Organization Address [facility] [facility] Co de Phone Number [facility] [place] [address] * (ABNORMAL) Hepatic function panel (11/20/2024 7:07 PM CDT) Bilirubin, total 0.4 0.1 - 1.2 mg/dL Bilirubin, direct 0.2 0.1 - 0.3 mg/dL [facility] Comment:Hemolyzed; result ma y be falsely decreased Protein, pl 6.3(L) 6.5 - 8.5 g/dL [facility] Albumin 2.6(L) 3.5 - 5.0 g/dL [facility] Alk phos 193(H) 40 - 130 Units/L [facility] ALT 12 7 - 45 Units/L [facility] AST 55(H) 10 - 45 Units/L [facility] Comment:Hemolyzed; result ma y be falsely elevated Blood 11/20/2024 7:07 PM CDT 11/20/2024 7:32 PM CDT us Lee Elena MD LAB BLOOD ORDERABLES Krystyna meyers Result [facility] One [facility] [place] [address] * Basic metabolic panel (11/20/2024 7:07 PM CDT) Sodium 142 135 - 145 mmol/L Potassium, pl 4.3 3.3 - 4.9 mmol/L [facility] Comment:Hemolyzed; Potassium value may be falsely elevated by as much as 0.3-0.5 mmol/L. Suggest redraw and reanalysis. Chloride 103 97 - 110 mmol/L [facility] CO2 27 22 - 32 mmol/L [facility] Anion gap 12 2 - 15 mmol/L [facility] BUN 16 6 - 25 mg/dL [facility] Creatinine 0.66 0.60 - 1.10 mg/dL [facility] Glucose 95 70 - 199 mg/dL [facility] Comment: Interpretive Data Fasting glucose >/= [...] 2022. Calcium 9.0 8.5 - 10.3 mg/dL [facility] Blood 11/20/2024 7:07 PM CDT 11/20/2024 7:32 PM CDT Lee Elena MD LAB BLOOD ORDERABLES Krystyna l Result Performing Organization Address City/[facility]/ZIP Co de Phone Number [facility] One [facility] [place] [address] * ECG 12 lead (11/20/2024 1:20 PM CDT) [facility] Ventricular Rate EKG/Min 78 BPM [facility] Atrial Rate 78 BPM [facility] [place]-Interval (MSEC) 126 ms [facility] QRS-Interval (MSEC) 68 ms [facility] QT-Interval (MSEC) 448 ms [facility] QTc 510 ms [facility] P [place] 22 degrees [facility] R [place] 55 degrees [facility] T [place] 124 degrees [facility] Diagnosis Normal sinus rhythm T wave abnormality, consider lateral ischemia Prolonged QT Abnormal ECG When compared with ECG of 18-NOV-2024 13:40, (unconfirmed) Nonspecific T wave abnormality no longer evident in Inferior leads T wave inversion less evident in Lateral leads Confirmed by SHALINI RODRIGUEZ M.D ([id number]) on 11/21/2024 9:46:31 AM [facility] 11/20/2024 1:20 PM CDT 11/21/2024 9:46 AM CDT us Lee Elena MD ECG ORDERABLES Final Res ult [facility] * Genomics Specimen Tracking Order Blood (11/20/2024 10:37 AM CDT) [facility] Genomics Tracking Order Received Blood 11/20/2024 10:3 7 AM CDT 11/20/2024 11:49 AM CDT Narrative [facility] - 11/29/2024 1:58 PM CDT Please read the Genomics Epic requisition for specimen collection requirements. Akash Sharma MD LAB BODY FLUIDS AND STOOLS ORDERABLES Final Result SHONA Troy [facility] [place] [address] * Genomics ([facility]) (11/20/2024 12:00 AM CDT) Blood (Peripheral Blood For Pathologist Review) 11/20/2024 11/20/2024 Narrative [facility] DI[facility] - CYTOGENETICS - 12/19/2024 12:31 PM CDT REPORT IMAGES AND/OR SCANNED DOCUMENTS ONLY VIEWABLE IN PDF FORMAT Akash Sharma MD LAB GENETIC TEST ING Edited Result - Final [facility] - CYTOGENETICS [address] [place] [address] * eGFR (11/19/2024 8:20 PM CDT) eGFR [...] MD LAB BLOOD ORDERABLES Krystyna mira Result [facility] One [facility] [place] [address] * Differential, auto (11/19/2024 8:20 PM CDT) Neutrophil abs 3.74 1.50 - 6.50 K/cumm Imm gran abs 0.06 0.00 - 0.10 K/cumm [facility] Lymphocyte abs 2.61 0.80 - 3.30 K/cumm [facility] Monocyte abs 0.72 0.20 - 0.80 K/cumm [facility] Eosinophil abs 0.09 0.00 - 0.50 K/cumm [facility] Basophil abs 0.08 0.00 - 0.10 K/cumm [facility] Neutrophil pct 51.2 % [facility] Comment: Interpretive Data Percent cell count reference ranges are not reported, since discordance with absolute values may lead to misinterpretation of CBC data. Current Interpretive Data was last revised on 2017. Imm gran pct 0.8 % [facility] Comment: Interpretive Data Percent cell count reference ranges are not reported, since discordance with absolute values may lead to misinterpretation of CBC data. Current Interpretive Data was last revised on 2017. Lymphocyte pct 35.8 % [facility] Comment: Interpretive Data Percent cell count reference ranges are not reported, since discordance with absolute values may lead to misinterpretation of CBC data. Current Interpretive Data was last revised on 2017. Monocyte pct 9.9 % [facility] Comment: Interpretive Data Percent cell count reference ranges are not reported, since discordance with absolute values may lead to misinterpretation of CBC data. Current Interpretive Data was last revised on 2017. Eosinophil pct 1.2 % [facility] Comment: Interpretive Data Percent cell count reference ranges are not reported, since discordance with absolute values may lead to misinterpretation of CBC data. Current Interpretive Data was last revised on 2017. Basophil pct 1.1 % [facility] Comment: Interpretive Data Percent cell count reference ranges are not reported, since discordance with absolute values may lead to misinterpretation of CBC data. Current Interpretive Data was last revised on 2017. Blood 11/19/2024 8:20 PM CDT 11/19/2024 9:33 PM CDT Lee Elena MD LAB BLOOD ORDERABLES Krystyna l Result Performing Organization Address [facility] Co de Phone Number [facility] One [facility] [place] [address] * (ABNORMAL) CBC with auto differential (11/19/2024 8:20 PM CDT) WBC 7.30 3.80 - 9.90 K/cumm Hgb 9.1(L) 11.9 - 15.5 g/dL [facility] Hct 27.7(L) 35.6 - 45.5 % [facility] Plt 627(H) 150 - 400 K/cumm [facility] MPV 9.9 9.1 - 12.3 fL [facility] RBC 2.75(L) 3.90 - 5.20 M/cumm [facility] MCV 100.7(H) 81.3 - 96.4 fL [facility] MCH 33.1 27.1 - 33.3 pg [facility] MCHC 32.9 32.3 - 35.7 g/dL [facility] RDW CV 20.7(H) 11.1 - 14.9 % [facility] RDW SD 75.5(H) 35.7 - 48.1 fL [facility] NRBC abs 0.00 0.00 - 0.01 K/cumm [facility] Blood 11/19/2024 8:20 PM CDT 11/19/2024 9:33 PM CDT Lee Elena MD LAB BLOOD ORDERABLES Krystyna l Result Performing Organization Address City/[facility]/[place] [address] * Protime-INR (11/19/2024 8:20 PM CDT) Pathologist [facility] PT 10.6 9.7 - 13.0 sec INR 0.98 0.90 - 1.20 [facility] Comment: Interpretive data Oral anticoagulant therapeutic ranges: Venous thromboembolism prophylaxis or treatment: 2.0-3.0 CARDIOLOGY Standard range: 2.0-3.0 High-intensity range: 2.5-3.5 Refer to indication-specific guidelines for appropriate target ranges for prosthetic heart valve replacement. Current interpretive data was last revised on 2019. Blood 11/19/2024 8:20 PM CDT 11/19/2024 9:36 PM CDT eLe Elena MD LAB BLOOD ORDERABLES Krystyna l Result Performing Organization Address [facility]/[place] [address] * Phosphorus (11/19/2024 8:20 PM CDT) [facility] Phosphorus, pl 4.2 2.3 - 4.5 mg/dL Blood 11/19/2024 8:20 PM CDT 11/19/2024 9:32 PM CDT Lee Elena MD LAB BLOOD ORDERABLES Krystyna l Result Performing Organization Address [facility] [place] [address] * Magnesium (11/19/2024 8:20 PM CDT) [facility] Magnesium 2.0 1.4 - 2.5 mg/dL Blood 11/19/2024 8:20 PM CDT 11/19/2024 9:32 PM CDT Lee Elena MD LAB BLOOD ORDERABLES Krystyna l Result Performing Organization Address City/[facility] Co de Phone Number [facility] Department [place] [address] * (ABNORMAL) Hepatic function panel (11/19/2024 8:20 PM CDT) Pathologist [facility] Bilirubin, total 0.4 0.1 - 1.2 mg/dL Bilirubin, direct 0.3 0.1 - 0.3 mg/dL [facility] Protein, pl 5.7(L) 6.5 - 8.5 g/dL [facility] Albumin 2.2(L) 3.5 - 5.0 g/dL [facility] Alk phos 189(H) 40 - 130 Units/L [facility] ALT 12 7 - 45 Units/L [facility] AST 49(H) 10 - 45 Units/L [facility] Blood 11/19/2024 8:20 PM CDT 11/19/2024 9:32 PM CDT Lee Elena MD LAB BLOOD ORDERABLES Krystyna l Result Performing Organization Address [facility] Co de Phone Number [facility] Department [place] [address] * (ABNORMAL) Basic metabolic panel (11/19/2024 8:20 PM CDT) Pathologist [facility] Sodium 138 135 - 145 mmol/L Potassium, pl 4.2 3.3 - 4.9 mmol/L [facility] Chloride 103 97 - 110 mmol/L [facility] CO2 28 22 - 32 mmol/L [facility] Anion gap 7 2 - 15 mmol/L [facility] BUN 15 6 - 25 mg/dL [facility] Creatinine 0.40(L) 0.60 - 1.10 mg/dL [facility] Glucose 93 70 - 199 mg/dL [facility] Comment: Interpretive Data Fasting glucose >/= [...] 2022. Calcium 8.4(L) 8.5 - 10.3 mg/dL [facility] Blood 11/19/2024 8:20 PM CDT 11/19/2024 9:32 PM CDT us Lee Elena MD LAB BLOOD ORDERABLES Krystyna l Result Performing Organization Address [facility]/ZIP Co de Phone Number [facility] Department [place] [address] * POCT glucose (11/19/2024 7:53 AM CDT) Glucose, POC 112 70 - 199 mg/dL Blood 11/19/2024 7:53 AM CDT 11/19/2024 7:53 AM CDT us Alex Bailey MD LAB POCT ORDERABLES - DEVICE Fi nal Result Performing Organization Address [facility]/ZIP Co de Phone Number [facility] Department [place] [address] * (ABNORMAL) Differential, auto (11/18/2024 9:53 PM CDT) Neutrophil abs 5.36 1.50 - 6.50 K/cumm Imm gran abs 0.06 0.00 - 0.10 K/cumm [facility] Lymphocyte abs 2.35 0.80 - 3.30 K/cumm [facility] Monocyte abs 0.81(H) 0.20 - 0.80 K/cumm [facility] Eosinophil abs 0.17 0.00 - 0.50 K/cumm [facility] Basophil abs 0.07 0.00 - 0.10 K/cumm [facility] Neutrophil pct 60.8 % [facility] Comment: Interpretive Data Percent cell count reference ranges are not reported, since discordance with absolute values may lead to misinterpretation of CBC data. Current Interpretive Data was last revised on 2017. Imm gran pct 0.7 % [facility] Comment: Interpretive Data Percent cell count reference ranges are not reported, since discordance with absolute values may lead to misinterpretation of CBC data. Current Interpretive Data was last revised on 2017. Lymphocyte pct 26.6 % [facility] Comment: Interpretive Data Percent cell count reference ranges are not reported, since discordance with absolute values may lead to misinterpretation of CBC data. Current Interpretive Data was last revised on 2017. Monocyte pct 9.2 % [facility] Comment: Interpretive Data Percent cell count reference ranges are not reported, since discordance with absolute values may lead to misinterpretation of CBC data. Current Interpretive Data was last revised on 2017. Eosinophil pct 1.9 % [facility] Comment: Interpretive Data Percent cell count reference ranges are not reported, since discordance with absolute values may lead to misinterpretation of CBC data. Current Interpretive Data was last revised on 2017. Basophil pct 0.8 % [facility] Comment: Interpretive Data Percent cell count reference ranges are not reported, since discordance with absolute values may lead to misinterpretation of CBC data. Current Interpretive Data was last revised on 2017. Blood 11/18/2024 9:53 PM CDT 11/18/2024 11:34 PM CDT us Lee Elena MD LAB BLOOD ORDERABLES Krystyna meyers Result [facility] Department [place] [address] * (ABNORMAL) CBC with auto differential (11/18/2024 9:53 PM CDT) WBC 8.82 3.80 - 9.90 K/cumm Hgb 9.2(L) 11.9 - 15.5 g/dL [facility] Hct 27.9(L) 35.6 - 45.5 % [facility] Plt 649(H) 150 - 400 K/cumm [facility] MPV 9.9 9.1 - 12.3 fL [facility] RBC 2.79(L) 3.90 - 5.20 M/cumm [facility] MCV 100.0(H) 81.3 - 96.4 fL [facility] MCH 33.0 27.1 - 33.3 pg [facility] MCHC 33.0 32.3 - 35.7 g/dL [facility] RDW CV 20.7(H) 11.1 - 14.9 % [facility] RDW SD 74.5(H) 35.7 - 48.1 fL [facility] NRBC abs 0.00 0.00 - 0.01 K/cumm [facility] Blood 11/18/2024 9:53 PM CDT 11/18/2024 11:34 PM CDT Lee Elena MD LAB BLOOD ORDERABLES Krystyna meyers Result [facility] [place] [address] * Blood culture Blood (11/18/2024 9:53 PM CDT) Report Final Report: No growth Blood 11/18/2024 9:53 PM CDT 11/19/2024 1:12 AM CDT Narrative [facility] - 11/23/2024 7:00 AM CDT Collection->Peripheral [...] performance characteristics have been verified by the [facility]. For questions about this culture, contact the Microbiology Laboratory at [phone]. Interpretive data was last revised on 24. Lee Elena MD LAB MICROBIOLOGY - GENERA L ORDERABLES Final Result Performing Organization Address [facility] de Phone Number [facility] [place] [address] * Protime-INR (11/18/2024 9:53 PM CDT) Pathologist [facility] PT 10.8 9.7 - 13.0 sec INR 1.00 0.90 - 1.20 [facility] Comment: Interpretive data Oral anticoagulant therapeutic ranges: Venous thromboembolism prophylaxis or treatment: 2.0-3.0 CARDIOLOGY Standard range: 2.0-3.0 High-intensity range: 2.5-3.5 Refer to indication-specific guidelines for appropriate target ranges for prosthetic heart valve replacement. Current interpretive data was last revised on 2019. Blood 11/18/2024 9:53 PM CDT 11/18/2024 11:31 PM CDT Lee Elena MD LAB BLOOD ORDERABLES Krystyna l Result Performing Organization Address [facility] Co de Phone Number [facility] [place] [address] * eGFR (11/18/2024 3:57 PM CDT) eGFR [...] MD LAB BLOOD ORDERABLES Krystyna l Result [facility] [place] [address] * (ABNORMAL) Phosphorus (11/18/2024 3:57 PM CDT) Pathologist [facility] Phosphorus, pl 4.8(H) 2.3 - 4.5 mg/dL Blood 11/18/2024 3:57 PM CDT 11/18/2024 4:11 PM CDT Lee Elena MD LAB BLOOD ORDERABLES Krystyna l Result [facility] [place] [address] * Magnesium (11/18/2024 3:57 PM CDT) Pathologist [facility] Magnesium 1.6 1.4 - 2.5 mg/dL Blood 11/18/2024 3:57 PM CDT 11/18/2024 4:11 PM CDT Lee Elena MD LAB BLOOD ORDERABLES Krystyna l Result Performing Organization Address [facility] de Phone Number [facility] [place] [address] * (ABNORMAL) Hepatic function panel (11/18/2024 3:57 PM CDT) [facility] Bilirubin, total 0.5 0.1 - 1.2 mg/dL Bilirubin, direct 0.4(H) 0.1 - 0.3 mg/dL [facility] Protein, pl 5.8(L) 6.5 - 8.5 g/dL [facility] Albumin 2.5(L) 3.5 - 5.0 g/dL [facility] Alk phos 207(H) 40 - 130 Units/L [facility] ALT 10 7 - 45 Units/L [facility] AST 43 10 - 45 Units/L [facility] Blood 11/18/2024 3:57 PM CDT 11/18/2024 4:11 PM CDT Lee Elena MD LAB BLOOD ORDERABLES Krystyna l Result Performing Organization Address [facility] de Phone Number [facility] [place] [address] * (ABNORMAL) Basic metabolic panel (11/18/2024 3:57 PM CDT) [facility] Sodium 140 135 - 145 mmol/L Potassium, pl 4.2 3.3 - 4.9 mmol/L [facility] Chloride 102 97 - 110 mmol/L [facility] CO2 29 22 - 32 mmol/L [facility] Anion gap 9 2 - 15 mmol/L [facility] BUN 13 6 - 25 mg/dL [facility] Creatinine 0.44(L) 0.60 - 1.10 mg/dL [facility] Glucose 92 70 - 199 mg/dL [facility] Comment: Interpretive Data Fasting glucose >/= [...] 2022. Calcium 8.4(L) 8.5 - 10.3 mg/dL [facility] Blood 11/18/2024 3:57 PM CDT 11/18/2024 4:11 PM CDT Lee Elena MD LAB BLOOD ORDERABLES Krystyna meyers Result [facility] [place] [address] * ECG 12 lead (11/18/2024 1:40 PM CDT) Ventricular Rate EKG/Min 86 BPM [facility] Atrial Rate 86 BPM [facility] [place]-Interval (MSEC) 104 ms [facility] QRS-Interval (MSEC) 74 ms [facility] QT-Interval (MSEC) 422 ms [facility] QTc 504 ms [facility] P [place] 28 degrees [facility] R [place] 78 degrees [facility] T [place] 159 degrees [facility] Diagnosis Sinus rhythm with short [place] T wave abnormality, consider lateral ischemia Prolonged QT Abnormal ECG When compared with ECG of 16-NOV-2024 07:09, Nonspecific T wave abnormality no longer evident in Anterior leads Inverted T waves have replaced nonspecific T wave abnormality in Lateral leads Confirmed by SHALINI RODRIGUEZ M.D ([id number]) on 11/20/2024 4:17:45 PM [facility] 11/18/2024 1:40 PM CDT 11/20/2024 4:17 PM CDT Lee Elena MD ECG ORDERABLES Final Res ult [facility] * POCT glucose (11/18/2024 12:02 AM CDT) Glucose, POC 104 70 - 199 mg/dL Blood 11/18/2024 12:0 2 AM CDT 11/18/2024 12:02 AM CDT Lee Elena MD LAB POCT ORDERABLES - DEV ICE Final Result Performing Organization Address City/[facility] Co de Phone Number [facility] [place] [address] * eGFR (11/17/2024 10:42 PM CDT) eGFR [...] MD LAB BLOOD ORDERABLES Krystyna meyers Result [facility] [place] [address] * Differential, auto (11/17/2024 10:42 PM CDT) Neutrophil abs 4.62 1.50 - 6.50 K/cumm Imm gran abs 0.08 0.00 - 0.10 K/cumm [facility] Lymphocyte abs 2.27 0.80 - 3.30 K/cumm [facility] Monocyte abs 0.73 0.20 - 0.80 K/cumm [facility] Eosinophil abs 0.13 0.00 - 0.50 K/cumm [facility] Basophil abs 0.08 0.00 - 0.10 K/cumm [facility] Neutrophil pct 58.5 % [facility] Comment: Interpretive Data Percent cell count reference ranges are not reported, since discordance with absolute values may lead to misinterpretation of CBC data. Current Interpretive Data was last revised on 2017. Imm gran pct 1.0 % [facility] Comment: Interpretive Data Percent cell count reference ranges are not reported, since discordance with absolute values may lead to misinterpretation of CBC data. Current Interpretive Data was last revised on 2017. Lymphocyte pct 28.7 % [facility] Comment: Interpretive Data Percent cell count reference ranges are not reported, since discordance with absolute values may lead to misinterpretation of CBC data. Current Interpretive Data was last revised on 2017. Monocyte pct 9.2 % [facility] Comment: Interpretive Data Percent cell count reference ranges are not reported, since discordance with absolute values may lead to misinterpretation of CBC data. Current Interpretive Data was last revised on 2017. Eosinophil pct 1.6 % [facility] Comment: Interpretive Data Percent cell count reference ranges are not reported, since discordance with absolute values may lead to misinterpretation of CBC data. Current Interpretive Data was last revised on 2017. Basophil pct 1.0 % [facility] Comment: Interpretive Data Percent cell count reference ranges are not reported, since discordance with absolute values may lead to misinterpretation of CBC data. Current Interpretive Data was last revised on 2017. Blood 11/17/2024 10:4 2 PM CDT 11/17/2024 11:26 PM CDT Lee Elena MD LAB BLOOD ORDERABLES Krystyna l Result Performing Organization Address [facility]/ZIP Co de Phone Number [facility] [place] [address] * (ABNORMAL) CBC with auto differential (11/17/2024 10:42 PM CDT) WBC 7.91 3.80 - 9.90 K/cumm Hgb 9.2(L) 11.9 - 15.5 g/dL [facility] Hct 27.9(L) 35.6 - 45.5 % [facility] Plt 666(H) 150 - 400 K/cumm [facility] MPV 10.0 9.1 - 12.3 fL [facility] RBC 2.81(L) 3.90 - 5.20 M/cumm [facility] MCV 99.3(H) 81.3 - 96.4 fL [facility] MCH 32.7 27.1 - 33.3 pg [facility] MCHC 33.0 32.3 - 35.7 g/dL [facility] RDW CV 21.2(H) 11.1 - 14.9 % [facility] RDW SD 75.9(H) 35.7 - 48.1 fL [facility] NRBC abs 0.00 0.00 - 0.01 K/cumm [facility] Blood 11/17/2024 10:4 2 PM CDT 11/17/2024 11:26 PM CDT Lee Elena MD LAB BLOOD ORDERABLES Krystyna l Result Performing Organization Address [facility]/ZIP Co de Phone Number [facility] [place] [address] * Blood culture Blood (11/17/2024 10:42 PM CDT) Report Final Report: No growth Blood 11/17/2024 10:4 2 PM CDT 11/17/2024 11:21 PM CDT Tabitha NAGEL [facility] - 11/22/2024 7:00 AM CDT Collection->Peripheral 1. [...] performance characteristics have been verified by the [facility]. For questions about this culture, contact the Microbiology Laboratory at [phone]. Interpretive data was last revised on 24. Lee Elena MD LAB MICROBIOLOGY - GENERA L ORDERABLES Final Result [facility] [place] [address] * Protime-INR (11/17/2024 10:42 PM CDT) PT 12.0 9.7 - 13.0 sec INR 1.11 0.90 - 1.20 [facility] Comment: Interpretive data Oral anticoagulant therapeutic ranges: Venous thromboembolism prophylaxis or treatment: 2.0-3.0 CARDIOLOGY Standard range: 2.0-3.0 High-intensity range: 2.5-3.5 Refer to indication-specific guidelines for appropriate target ranges for prosthetic heart valve replacement. Current interpretive data was last revised on 2019. Blood 11/17/2024 10:4 2 PM CDT 11/17/2024 11:22 PM CDT Lee Elena MD LAB BLOOD ORDERABLES Krystyna l Result Performing Organization Address City/[facility] Co de Phone Number [facility] [place] [address] * Phosphorus (11/17/2024 10:42 PM CDT) Phosphorus, pl 3.7 2.3 - 4.5 mg/dL Blood 11/17/2024 10:4 2 PM CDT 11/17/2024 11:26 PM CDT Lee Elena MD LAB BLOOD ORDERABLES Krystyna l Result Performing Organization Address [facility] Co de Phone Number [facility] [place] [address] * Magnesium (11/17/2024 10:42 PM CDT) Magnesium 1.8 1.4 - 2.5 mg/dL Blood 11/17/2024 10:4 2 PM CDT 11/17/2024 11:26 PM CDT Lee Elena MD LAB BLOOD ORDERABLES Krystyna l Result Performing Organization Address City/[facility] Co de Phone Number [facility] [place] [address] * (ABNORMAL) Hepatic function panel (11/17/2024 10:42 PM CDT) Bilirubin, total 0.5 0.1 - 1.2 mg/dL Bilirubin, direct 0.4(H) 0.1 - 0.3 mg/dL [facility] Protein, pl 5.4(L) 6.5 - 8.5 g/dL [facility] Albumin 2.2(L) 3.5 - 5.0 g/dL [facility] Alk phos 186(H) 40 - 130 Units/L [facility] ALT 11 7 - 45 Units/L [facility] AST 44 10 - 45 Units/L [facility] Blood 11/17/2024 10:4 2 PM CDT 11/17/2024 11:26 PM CDT us Lee Elena MD LAB BLOOD ORDERABLES Krystyna meyers Result [facility] [place] [address] * (ABNORMAL) Basic metabolic panel (11/17/2024 10:42 PM CDT) Sodium 139 135 - 145 mmol/L Potassium, pl 4.2 3.3 - 4.9 mmol/L [facility] Chloride 106 97 - 110 mmol/L [facility] CO2 28 22 - 32 mmol/L [facility] Anion gap 5 2 - 15 mmol/L [facility] BUN 10 6 - 25 mg/dL [facility] Creatinine 0.43(L) 0.60 - 1.10 mg/dL [facility] Glucose 99 70 - 199 mg/dL [facility] Comment: Interpretive Data Fasting glucose >/= [...] 2022. Calcium 8.4(L) 8.5 - 10.3 mg/dL [facility] Blood 11/17/2024 10:4 2 PM CDT 11/17/2024 11:26 PM CDT Lee Elena MD LAB BLOOD ORDERABLES Krystyna l Result Performing Organization Address [facility] Co de Phone Number [facility] [place] [address] * POCT glucose (11/17/2024 7:38 PM CDT) Glucose, POC 101 70 - 199 mg/dL Blood 11/17/2024 7:38 PM CDT 11/17/2024 7:38 PM CDT Lee Elena MD LAB POCT ORDERABLES - DEV ICE Final Result Performing Organization Address [facility] Co de Phone Number [facility] [place] [address] * POCT glucose (11/17/2024 3:39 PM CDT) Glucose, POC 95 70 - 199 mg/dL Blood 11/17/2024 3:39 PM CDT 11/17/2024 3:39 PM CDT Lee Elena MD LAB POCT ORDERABLES - DEV ICE Final Result Performing Organization Address City/[facility] Co de Phone Number [facility] [place] [address] * POCT glucose (11/17/2024 11:25 AM CDT) Glucose, POC 99 70 - 199 mg/dL Blood 11/17/2024 11:2 5 AM CDT 11/17/2024 11:25 AM CDT Lee Elena MD LAB POCT ORDERABLES - DEV ICE Final Result Performing Organization Address [facility] [place] [address] * POCT glucose (11/17/2024 7:43 AM CDT) Glucose, POC 108 70 - 199 mg/dL Blood 11/17/2024 7:43 AM CDT 11/17/2024 7:43 AM CDT Lee Elena MD LAB POCT ORDERABLES - DEV ICE Final Result Performing Organization Address [facility] [place] [address] * POCT glucose (11/17/2024 5:04 AM CDT) Glucose, POC 110 70 - 199 mg/dL Blood 11/17/2024 5:04 AM CDT 11/17/2024 5:04 AM CDT Lee Elena MD LAB POCT ORDERABLES - DEV ICE Final Result Performing Organization Address [facility] Co de Phone Number [facility] [place] [address] * POCT glucose (11/17/2024 12:06 AM CDT) Glucose, POC 102 70 - 199 mg/dL Blood 11/17/2024 12:0 6 AM CDT 11/17/2024 12:06 AM CDT Lee Elena MD LAB POCT ORDERABLES - DEV ICE Final Result Performing Organization Address [facility] Co de Phone Number [facility] [place] [address] * eGFR (11/16/2024 9:38 PM CDT) [facility] eGFR >90 >=60 mL/min/1. 73 m2 Comment: [...] MD LAB BLOOD ORDERABLES Krystyna meyers Result [facility] [place] [address] * (ABNORMAL) Differential, auto (11/16/2024 9:38 PM CDT) [facility] Neutrophil abs 9.72(H) 1.50 - 6.50 K/cumm Imm gran abs 0.14(H) 0.00 - 0.10 K/cumm [facility] Lymphocyte abs 1.26 0.80 - 3.30 K/cumm [facility] Monocyte abs 0.53 0.20 - 0.80 K/cumm [facility] Eosinophil abs 0.06 0.00 - 0.50 K/cumm [facility] Basophil abs 0.08 0.00 - 0.10 K/cumm [facility] Neutrophil pct 82.4 % [facility] Comment: Interpretive Data Percent cell count reference ranges are not reported, since discordance with absolute values may lead to misinterpretation of CBC data. Current Interpretive Data was last revised on 2017. Imm gran pct 1.2 % [facility] Comment: Interpretive Data Percent cell count reference ranges are not reported, since discordance with absolute values may lead to misinterpretation of CBC data. Current Interpretive Data was last revised on 2017. Lymphocyte pct 10.7 % [facility] Comment: Interpretive Data Percent cell count reference ranges are not reported, since discordance with absolute values may lead to misinterpretation of CBC data. Current Interpretive Data was last revised on 2017. Monocyte pct 4.5 % [facility] Comment: Interpretive Data Percent cell count reference ranges are not reported, since discordance with absolute values may lead to misinterpretation of CBC data. Current Interpretive Data was last revised on 2017. Eosinophil pct 0.5 % [facility] Comment: Interpretive Data Percent cell count reference ranges are not reported, since discordance with absolute values may lead to misinterpretation of CBC data. Current Interpretive Data was last revised on 2017. Basophil pct 0.7 % [facility] Comment: Interpretive Data Percent cell count reference ranges are not reported, since discordance with absolute values may lead to misinterpretation of CBC data. Current Interpretive Data was last revised on 2017. Blood 11/16/2024 9:38 PM CDT 11/16/2024 10:38 PM CDT Lee Elena MD LAB BLOOD ORDERABLES Krystyna mira Result [facility] [place] [address] * (ABNORMAL) CBC with auto differential (11/16/2024 9:38 PM CDT) WBC 11.79(H) 3.80 - 9.90 K/cumm Hgb 10.1(L) 11.9 - 15.5 g/dL [facility] Hct 30.2(L) 35.6 - 45.5 % [facility] Plt 718(H) 150 - 400 K/cumm [facility] MPV 10.5 9.1 - 12.3 fL [facility] RBC 3.12(L) 3.90 - 5.20 M/cumm [facility] MCV 96.8(H) 81.3 - 96.4 fL [facility] MCH 32.4 27.1 - 33.3 pg [facility] MCHC 33.4 32.3 - 35.7 g/dL [facility] RDW CV 21.5(H) 11.1 - 14.9 % [facility] RDW SD 73.1(H) 35.7 - 48.1 fL [facility] NRBC abs 0.00 0.00 - 0.01 K/cumm [facility] Blood 11/16/2024 9:38 PM CDT 11/16/2024 10:38 PM CDT Lee Elena MD LAB BLOOD ORDERABLES Krystyna meyers Result [facility] [place] [address] * Blood culture Blood (11/16/2024 9:38 PM CDT) Report Final Report: No growth Blood 11/16/2024 9:38 PM CDT 11/16/2024 10:38 PM CDT Narrative [facility] - 11/21/2024 7:00 AM CDT From a [...] performance characteristics have been verified by the [facility]. For questions about this culture, contact the Microbiology Laboratory at [phone]. Interpretive data was last revised on 24. Lee Elena MD LAB MICROBIOLOGY - GENERA L ORDERABLES Final Result Performing Organization Address [facility] Co de Phone Number [facility] [place] [address] * Protime-INR (11/16/2024 9:38 PM CDT) PT 12.6 9.7 - 13.0 sec INR 1.16 0.90 - 1.20 [facility] Comment: Interpretive data Oral anticoagulant therapeutic ranges: Venous thromboembolism prophylaxis or treatment: 2.0-3.0 CARDIOLOGY Standard range: 2.0-3.0 High-intensity range: 2.5-3.5 Refer to indication-specific guidelines for appropriate target ranges for prosthetic heart valve replacement. Current interpretive data was last revised on 2019. Blood 11/16/2024 9:38 PM CDT 11/16/2024 10:38 PM CDT Lee Elena MD LAB BLOOD ORDERABLES Krystyna l Result Performing Organization Address [facility] Co de Phone Number [facility] [place] [address] * Phosphorus (11/16/2024 9:38 PM CDT) Phosphorus, pl 4.1 2.3 - 4.5 mg/dL Blood 11/16/2024 9:38 PM CDT 11/16/2024 10:37 PM CDT Lee Elena MD LAB BLOOD ORDERABLES Krystyna l Result Performing Organization Address City/[facility]/ZIP Co de Phone Number [facility] [place] [address] * Magnesium (11/16/2024 9:38 PM CDT) Pathologist [facility] Magnesium 1.5 1.4 - 2.5 mg/dL Blood 11/16/2024 9:38 PM CDT 11/16/2024 10:37 PM CDT Lee Elena MD LAB BLOOD ORDERABLES Krystyna l Result Performing Organization Address [facility] Co de Phone Number [facility] [place] [address] * (ABNORMAL) Hepatic function panel (11/16/2024 9:38 PM CDT) Bilirubin, total 0.6 0.1 - 1.2 mg/dL Bilirubin, direct 0.4(H) 0.1 - 0.3 mg/dL [facility] Protein, pl 5.7(L) 6.5 - 8.5 g/dL [facility] Albumin 2.0(L) 3.5 - 5.0 g/dL [facility] Alk phos 201(H) 40 - 130 Units/L [facility] ALT 21 7 - 45 Units/L [facility] AST 68(H) 10 - 45 Units/L [facility] Blood 11/16/2024 9:38 PM CDT 11/16/2024 10:37 PM CDT Lee Elena MD LAB BLOOD ORDERABLES Krystyna l Result Performing Organization Address City/[facility] Co de Phone Number [facility] [place] [address] * (ABNORMAL) Basic metabolic panel (11/16/2024 9:38 PM CDT) Sodium 141 135 - 145 mmol/L Potassium, pl 4.2 3.3 - 4.9 mmol/L [facility] Chloride 103 97 - 110 mmol/L [facility] CO2 29 22 - 32 mmol/L [facility] Anion gap 9 2 - 15 mmol/L [facility] BUN 9 6 - 25 mg/dL [facility] Creatinine 0.48(L) 0.60 - 1.10 mg/dL [facility] Glucose 90 70 - 199 mg/dL [facility] Comment: Interpretive Data Fasting glucose >/= [...] 2022. Calcium 8.8 8.5 - 10.3 mg/dL [facility] Blood 11/16/2024 9:38 PM CDT 11/16/2024 10:37 PM CDT Lee Elena MD LAB BLOOD ORDERABLES Krystyna l Result [facility] [place] [address] * Blood culture Blood (11/16/2024 9:28 PM CDT) Report Final Report: No growth Blood 11/16/2024 9:28 PM CDT 11/16/2024 10:38 PM CDT Narrative [facility] - 11/21/2024 7:00 AM CDT Collection->Peripheral 1. [...] performance characteristics have been verified by the [facility]. For questions about this culture, contact the Microbiology Laboratory at [phone]. Interpretive data was last revised on 24. Lee Elena MD LAB MICROBIOLOGY - GENERA L ORDERABLES Final Result [facility] [place] [address] * POCT glucose (11/16/2024 8:10 PM CDT) Glucose, POC 124 70 - 199 mg/dL Blood 11/16/2024 8:10 PM CDT 11/16/2024 8:10 PM CDT Lee Elena MD LAB POCT ORDERABLES - DEV ICE Final Result [facility] [place] [address] * POCT glucose (11/16/2024 6:32 PM CDT) Glucose, POC 104 70 - 199 mg/dL Blood 11/16/2024 6:32 PM CDT 11/16/2024 6:32 PM CDT us Lee Elena MD LAB POCT ORDERABLES - DEV ICE Final Result [facility] [place] [address] * Radiology Event (11/16/2024 5:53 PM CDT) [...] department on the 5th floor of the [facility]. It was reported that when the patient [...] department on the 5th floor of the [facility]. It was reported that when the patient [...] mapping at the mid: normal less than 0876-2769 ms. T2 mapping at the mid: normal [...] mapping at the mid: normal less than 4047-9693 ms. T2 mapping at the mid: normal [...] by: Thang Castro M.D. Lee Elena MD [facility] MRI PROCEDURES Final Result * (ABNORMAL) Hemoglobin and hematocrit (11/16/2024 11:59 AM CDT) Hgb 10.2(L) 11.9 - 15.5 g/dL Comment:Hemoglobin delta due to apparent blood transfusion. Hct 30.3(L) 35.6 - 45.5 % [facility] Blood 11/16/2024 11:5 9 AM CDT 11/16/2024 12:47 PM CDT Oarcio Cody MD LAB BLOOD ORDERABLES Final Result Performing Organization Address City/[facility] Co de Phone Number [facility] [place] [address] * eGFR (11/16/2024 11:58 AM CDT) eGFR [...] ORDERABLES Krystyna l Result Performing Organization Address City/[facility]/ZIP Co de Phone Number [facility] [place] [address] * Calcium, ionized (11/16/2024 11:58 AM CDT) Calcium, Ionized 4.68 4.50 - 5.10 mg/dL Blood 11/16/2024 11:5 8 AM CDT 11/16/2024 12:39 PM CDT Lee Elena MD LAB BLOOD ORDERABLES Krystyna l Result Performing Organization Address [facility] Co de Phone Number [facility] [place] [address] * Phosphorus (11/16/2024 11:58 AM CDT) [facility] Phosphorus, pl 4.3 2.3 - 4.5 mg/dL Blood 11/16/2024 11:5 8 AM CDT 11/16/2024 12:47 PM CDT Lee Elena MD LAB BLOOD ORDERABLES Krystyna l Result Performing Organization Address [facility] Co de Phone Number [facility] Department [place] [address] * Magnesium (11/16/2024 11:58 AM CDT) [facility] Magnesium 1.6 1.4 - 2.5 mg/dL Blood 11/16/2024 11:5 8 AM CDT 11/16/2024 12:47 PM CDT Lee Elena MD LAB BLOOD ORDERABLES Krystyna l Result Performing Organization Address [facility]/[place] de Phone Number [facility] [place] [address] * (ABNORMAL) Basic metabolic panel (11/16/2024 11:58 AM CDT) [facility] Sodium 140 135 - 145 mmol/L Potassium, pl 4.2 3.3 - 4.9 mmol/L [facility] Chloride 104 97 - 110 mmol/L [facility] CO2 30 22 - 32 mmol/L [facility] Anion gap 6 2 - 15 mmol/L [facility] BUN 9 6 - 25 mg/dL [facility] Creatinine 0.44(L) 0.60 - 1.10 mg/dL [facility] Glucose 101 70 - 199 mg/dL [facility] Comment: Interpretive Data Fasting glucose >/= [...] 2022. Calcium 8.6 8.5 - 10.3 mg/dL [facility] Blood 11/16/2024 11:5 8 AM CDT 11/16/2024 12:47 PM CDT Lee Elena MD LAB BLOOD ORDERABLES Krystyna l Result Performing Organization Address City/[facility]/ZIP Co de Phone Number [facility] [place] [address] * (ABNORMAL) POCT glucose (11/16/2024 11:43 AM CDT) [facility] Signature Glucose, POC 250(H) 70 - 199 mg/dL Comment:Glu2: RN/MD Notified Glucose comment 1 Glu2: RN/MD Notified [facility] Blood 11/16/2024 11:4 3 AM CDT 11/16/2024 11:43 AM CDT Lee Elena MD LAB POCT ORDERABLES - DEV ICE Final Result [facility] [place] [address] * POCT glucose (11/16/2024 7:55 AM CDT) Glucose, POC 98 70 - 199 mg/dL Blood 11/16/2024 7:55 AM CDT 11/16/2024 7:55 AM CDT Lee Elena MD LAB POCT ORDERABLES - DEV ICE Final Result Performing Organization Address [facility] Co de Phone Number [facility] [place] [address] * ECG 12 lead (11/16/2024 7:09 AM CDT) Ventricular Rate EKG/Min 84 BPM [facility] Atrial Rate 84 BPM [facility] [place]-Interval (MSEC) 126 ms [facility] QRS-Interval (MSEC) 66 ms [facility] QT-Interval (MSEC) 410 ms [facility] QTc 484 ms [facility] P [place] 19 degrees [facility] R [place] 41 degrees [facility] T [place] 92 degrees [facility] Diagnosis Normal sinus rhythm Nonspecific T wave abnormality Prolonged QT Abnormal ECG Confirmed by Gustabo Mcdaniels MD ([id number]) on 11/16/2024 8:39:02 AM [facility] 11/16/2024 7:09 AM CDT 11/16/2024 8:39 AM CDT us Lee Elena MD ECG ORDERABLES Final Res ult Performing Organization Address [facility] Co de Phone Number [facility] * Transfuse RBC (11/16/2024 6:22 AM CDT) Blood us Lee Elena MD BLOOD TRANSFUSION ORDERAB LES Final Result Performing Organization Address [facility]/ZIP Co de Phone Number [facility] [place] [address] * POCT glucose (11/16/2024 4:21 AM CDT) Glucose, POC 119 70 - 199 mg/dL Blood 11/16/2024 4:21 AM CDT 11/16/2024 4:21 AM CDT Lee Elena MD LAB POCT ORDERABLES - DEV ICE Final Result Performing Organization Address [facility] Co de Phone Number [facility] [place] [address] * Type and screen (11/16/2024 1:45 AM CDT) Pathologist [facility] [place] Zach, indirect Negative ABO Rh A Positive [facility] Blood 11/16/2024 1:45 AM CDT 11/16/2024 2:04 AM CDT Narrative [facility] - 11/16/2024 2:58 AM CDT Has the patient had Daratumumab or Isatuximab in the past 6 months?->Unknown Lee Elena MD LAB BLOOD BANK TEST ORDER ALINE Final Result Performing Organization Address [facility]/[place] [address] * POCT glucose (11/16/2024 12:24 AM CDT) [facility] Glucose, POC 107 70 - 199 mg/dL Blood 11/16/2024 12:2 4 AM CDT 11/16/2024 12:24 AM CDT Lee Elena MD LAB POCT ORDERABLES - DEV ICE Final Result Performing Organization Address City/[facility] [place] [address] * Prepare RBC: 1 Units (11/15/2024 10:35 PM CDT) [facility] Product code [id number] Unit Number [id number] [facility] Product Blood Type APOS [facility] Dispense Status PRESUMED TRANSFUSED [facility] Blood 11/15/2024 10:3 5 PM CDT 11/15/2024 10:34 PM CDT Narrative [facility] - 11/16/2024 4:01 PM CDT Are special requirements needed? (All products are leukoreduced and CMV- safe)- >No Date required:-[id number] LRRBC # of [id number] Reasons:-Hgb <7 g/dL} us Lee Elena MD BLOOD BANK PRODUCT ORDERA BLES Final Result Performing Organization Address [facility]/ZIP Co de Phone Number [facility] [place] [address] * eGFR (11/15/2024 8:16 PM CDT) eGFR [...] ORDERABLES Krystyna l Result [facility] [place] [address] * (ABNORMAL) Differential, auto (11/15/2024 8:16 PM CDT) Neutrophil abs 2.95 1.50 - 6.50 K/cumm Imm gran abs 0.11(H) 0.00 - 0.10 K/cumm [facility] Lymphocyte abs 2.04 0.80 - 3.30 K/cumm [facility] Monocyte abs 0.49 0.20 - 0.80 K/cumm [facility] Eosinophil abs 0.10 0.00 - 0.50 K/cumm [facility] Basophil abs 0.02 0.00 - 0.10 K/cumm [facility] Neutrophil pct 51.6 % [facility] Comment: Interpretive Data Percent cell count reference ranges are not reported, since discordance with absolute values may lead to misinterpretation of CBC data. Current Interpretive Data was last revised on 2017. Imm gran pct 1.9 % [facility] Comment: Interpretive Data Percent cell count reference ranges are not reported, since discordance with absolute values may lead to misinterpretation of CBC data. Current Interpretive Data was last revised on 2017. Lymphocyte pct 35.7 % [facility] Comment: Interpretive Data Percent cell count reference ranges are not reported, since discordance with absolute values may lead to misinterpretation of CBC data. Current Interpretive Data was last revised on 2017. Monocyte pct 8.6 % [facility] Comment: Interpretive Data Percent cell count reference ranges are not reported, since discordance with absolute values may lead to misinterpretation of CBC data. Current Interpretive Data was last revised on 2017. Eosinophil pct 1.8 % [facility] Comment: Interpretive Data Percent cell count reference ranges are not reported, since discordance with absolute values may lead to misinterpretation of CBC data. Current Interpretive Data was last revised on 2017. Basophil pct 0.4 % [facility] Comment: Interpretive Data Percent cell count reference ranges are not reported, since discordance with absolute values may lead to misinterpretation of CBC data. Current Interpretive Data was last revised on 2017. Blood 11/15/2024 8:16 PM CDT 11/15/2024 9:37 PM CDT Lee Elena MD LAB BLOOD ORDERABLES Krystyna l Result Performing Organization Address [facility] Co de Phone Number [facility] [facility] [place] [address] * (ABNORMAL) CBC with auto differential (11/15/2024 8:16 PM CDT) Pathologist [facility] [place] WBC 5.71 3.80 - 9.90 K/cumm Hgb 6.9(L) 11.9 - 15.5 g/dL [facility] Hct 20.7(L) 35.6 - 45.5 % [facility] Plt 592(H) 150 - 400 K/cumm [facility] MPV 11.0 9.1 - 12.3 fL [facility] RBC 2.05(L) 3.90 - 5.20 M/cumm [facility] MCV 101.0(H) 81.3 - 96.4 fL [facility] MCH 33.7(H) 27.1 - 33.3 pg [facility] MCHC 33.3 32.3 - 35.7 g/dL [facility] RDW CV 21.6(H) 11.1 - 14.9 % [facility] RDW SD 77.4(H) 35.7 - 48.1 fL [facility] NRBC abs 0.00 0.00 - 0.01 K/cumm [facility] Blood 11/15/2024 8:16 PM CDT 11/15/2024 9:37 PM CDT Lee Elena MD LAB BLOOD ORDERABLES Krystyna meyers Result Performing Organization Address [facility]/ZIP Co de Phone Number [facility] [place] [address] * Blood culture Blood (11/15/2024 8:16 PM [...] performance characteristics have been verified by the [facility]. For questions about this culture, contact the Microbiology Laboratory at [phone]. Interpretive data was last revised on 24. Lee Elena MD LAB MICROBIOLOGY - GENERA L ORDERABLES Final Result [facility] [place] [address] * Protime-INR (11/15/2024 8:16 PM CDT) PT 10.7 9.7 - 13.0 sec INR 0.99 0.90 - 1.20 [facility] Comment: Interpretive data Oral anticoagulant therapeutic ranges: Venous thromboembolism prophylaxis or treatment: 2.0-3.0 CARDIOLOGY Standard range: 2.0-3.0 High-intensity range: 2.5-3.5 Refer to indication-specific guidelines for appropriate target ranges for prosthetic heart valve replacement. Current interpretive data was last revised on 2019. Blood 11/15/2024 8:16 PM CDT 11/15/2024 9:39 PM CDT Lee Elena MD LAB BLOOD ORDERABLES Krystyna l Result Performing Organization Address City/[facility] Co de Phone Number [facility] [place] [address] * Phosphorus (11/15/2024 8:16 PM CDT) Phosphorus, pl 4.0 2.3 - 4.5 mg/dL Blood 11/15/2024 8:16 PM CDT 11/15/2024 9:36 PM CDT Lee Elena MD LAB BLOOD ORDERABLES Krystyna l Result Performing Organization Address [facility] Co de Phone Number [facility] [place] [address] * Magnesium (11/15/2024 8:16 PM CDT) Pathologist [facility] [place] Magnesium 1.6 1.4 - 2.5 mg/dL Blood 11/15/2024 8:16 PM CDT 11/15/2024 9:36 PM CDT Lee Elena MD LAB BLOOD ORDERABLES Krystyna l Result Performing Organization Address City/[facility] [place] [address] * (ABNORMAL) Hepatic function panel (11/15/2024 8:16 PM CDT) Bilirubin, total 0.5 0.1 - 1.2 mg/dL Bilirubin, direct 0.4(H) 0.1 - 0.3 mg/dL [facility] Protein, pl 4.8(L) 6.5 - 8.5 g/dL [facility] Albumin 2.1(L) 3.5 - 5.0 g/dL [facility] Alk phos 171(H) 40 - 130 Units/L [facility] ALT 11 7 - 45 Units/L [facility] AST 39 10 - 45 Units/L [facility] Blood 11/15/2024 8:16 PM CDT 11/15/2024 9:36 PM CDT us Lee Elena MD LAB BLOOD ORDERABLES Krystyna l Result [facility] Department [place] [address] * (ABNORMAL) Basic metabolic panel (11/15/2024 8:16 PM CDT) Pathologist [facility] [place] Sodium 141 135 - 145 mmol/L Potassium, pl 4.0 3.3 - 4.9 mmol/L [facility] Chloride 105 97 - 110 mmol/L [facility] CO2 29 22 - 32 mmol/L [facility] Anion gap 7 2 - 15 mmol/L [facility] BUN 7 6 - 25 mg/dL [facility] Creatinine 0.46(L) 0.60 - 1.10 mg/dL [facility] Glucose 95 70 - 199 mg/dL [facility] Comment: Interpretive Data Fasting glucose >/= [...] 2022. Calcium 7.7(L) 8.5 - 10.3 mg/dL [facility] Blood 11/15/2024 8:16 PM CDT 11/15/2024 9:36 PM CDT Lee Elena MD LAB BLOOD ORDERABLES Krystyna l Result Performing Organization Address [facility] Co de Phone Number [facility] [place] [address] * POCT glucose (11/15/2024 7:40 PM CDT) Glucose, POC 117 70 - 199 mg/dL Blood 11/15/2024 7:40 PM CDT 11/15/2024 7:40 PM CDT Lee Elena MD LAB POCT ORDERABLES - DEV ICE Final Result Performing Organization Address [facility] de Phone Number [facility] [place] [address] * POCT glucose (11/15/2024 5:11 PM CDT) Glucose, POC 100 70 - 199 mg/dL Blood 11/15/2024 5:11 PM CDT 11/15/2024 5:11 PM CDT Lee Elena MD LAB POCT ORDERABLES - DEV ICE Final Result Performing Organization Address [facility] de Phone Number [facility] [place] [address] * POCT glucose (11/15/2024 11:19 AM CDT) Glucose, POC 127 70 - 199 mg/dL Blood 11/15/2024 11:1 9 AM CDT 11/15/2024 11:19 AM CDT Lee Elena MD LAB POCT ORDERABLES - DEV ICE Final Result Performing Organization Address [facility]/State/[place] [address] * POCT glucose (11/15/2024 8:44 AM CDT) Glucose, POC 106 70 - 199 mg/dL Blood 11/15/2024 8:44 AM CDT 11/15/2024 8:44 AM CDT Lee Elena MD LAB POCT ORDERABLES - DEV ICE Final Result Performing Organization Address City/[facility] [place] [address] * POCT glucose (11/15/2024 4:01 AM CDT) Glucose, POC 102 70 - 199 mg/dL Blood 11/15/2024 4:01 AM CDT 11/15/2024 4:01 AM CDT Lee Elena MD LAB POCT ORDERABLES - DEV ICE Final Result Performing Organization Address [facility] Co de Phone Number [facility] [place] [address] * POCT glucose (11/15/2024 12:15 AM CDT) Glucose, POC 110 70 - 199 mg/dL Blood 11/15/2024 12:1 5 AM CDT 11/15/2024 12:15 AM CDT Lee Elena MD LAB POCT ORDERABLES - DEV ICE Final Result Performing Organization Address City/[facility] [place] [address] * ECG 12 lead (11/14/2024 10:27 PM CDT) Pathologist [facility] [place] Ventricular Rate EKG/Min 103 BPM [facility] Atrial Rate 103 BPM [facility] [place]-Interval (MSEC) 124 ms [facility] QRS-Interval (MSEC) 70 ms [facility] QT-Interval (MSEC) 380 ms [facility] QTc 497 ms [facility] P [place] 23 degrees [facility] R [place] 21 degrees [facility] T [place] 113 degrees [facility] Diagnosis Sinus tachycardia Nonspecific T wave abnormality Abnormal ECG Confirmed by Gustabo Mcdaniels MD ([id number]) on 11/15/2024 4:29:22 PM [facility] 11/14/2024 10:2 7 PM CDT 11/15/2024 4:29 PM CDT Lee Elena MD ECG ORDERABLES Final Res ult Performing Organization Address [facility] de Phone Number [facility] * N. gonorrhoeae/C. trachomatis Amplification Urine (11/14/2024 10:01 PM CDT) [facility] C. trachomatis Not Detected Not Detected [facility] N. gonorrhoeae Not Detected Not Detected [facility] Comment: Interpretive Data This assay detects Chlamydia trachomatis and Neisseria gonorrhoeae by nucleic acid amplification testing (NAAT). This assay has been cleared by the [place] Food and Drug administration. The performance characteristics of this test have been verified by the [facility] Molecular Infectious Disease laboratory. The performance characteristics of this test have not been evaluated in individuals less than 14 years of age. Current Interpretive Data last revised 2023. Urine (None) 11/14/2024 10:0 1 PM CDT 11/15/2024 3:36 AM CDT Lee Elena MD LAB MICROBIOLOGY - GENERA L ORDERABLES Final Result [facility] [place] [address] [facility] * eGFR (11/14/2024 9:16 PM CDT) [facility] eGFR >90 >=60 mL/min/1. 73 m2 Comment: [...] MD LAB BLOOD ORDERABLES Krystyna meyers Result [facility] [place] [address] * (ABNORMAL) Differential, auto (11/14/2024 9:16 PM CDT) [facility] Neutrophil abs 4.79 1.50 - 6.50 K/cumm Imm gran abs 0.18(H) 0.00 - 0.10 K/cumm [facility] Lymphocyte abs 2.09 0.80 - 3.30 K/cumm [facility] Monocyte abs 0.68 0.20 - 0.80 K/cumm [facility] Eosinophil abs 0.10 0.00 - 0.50 K/cumm [facility] Basophil abs 0.05 0.00 - 0.10 K/cumm [facility] Neutrophil pct 60.7 % [facility] Comment: Interpretive Data Percent cell count reference ranges are not reported, since discordance with absolute values may lead to misinterpretation of CBC data. Current Interpretive Data was last revised on 2017. Imm gran pct 2.3 % [facility] Comment: Interpretive Data Percent cell count reference ranges are not reported, since discordance with absolute values may lead to misinterpretation of CBC data. Current Interpretive Data was last revised on 2017. Lymphocyte pct 26.5 % [facility] Comment: Interpretive Data Percent cell count reference ranges are not reported, since discordance with absolute values may lead to misinterpretation of CBC data. Current Interpretive Data was last revised on 2017. Monocyte pct 8.6 % [facility] Comment: Interpretive Data Percent cell count reference ranges are not reported, since discordance with absolute values may lead to misinterpretation of CBC data. Current Interpretive Data was last revised on 2017. Eosinophil pct 1.3 % [facility] Comment: Interpretive Data Percent cell count reference ranges are not reported, since discordance with absolute values may lead to misinterpretation of CBC data. Current Interpretive Data was last revised on 2017. Basophil pct 0.6 % [facility] Comment: Interpretive Data Percent cell count reference ranges are not reported, since discordance with absolute values may lead to misinterpretation of CBC data. Current Interpretive Data was last revised on 2017. Blood 11/14/2024 9:16 PM CDT 11/14/2024 10:29 PM CDT Lee Elena MD LAB BLOOD ORDERABLES Krystyna meyers Result [facility] Department [place] [address] * (ABNORMAL) CBC with auto differential (11/14/2024 9:16 PM CDT) WBC 7.89 3.80 - 9.90 K/cumm Hgb 7.4(L) 11.9 - 15.5 g/dL [facility] Hct 22.1(L) 35.6 - 45.5 % [facility] Plt 501(H) 150 - 400 K/cumm [facility] MPV 11.5 9.1 - 12.3 fL [facility] RBC 2.25(L) 3.90 - 5.20 M/cumm [facility] MCV 98.2(H) 81.3 - 96.4 fL [facility] MCH 32.9 27.1 - 33.3 pg [facility] MCHC 33.5 32.3 - 35.7 g/dL [facility] RDW CV 21.2(H) 11.1 - 14.9 % [facility] RDW SD 74.3(H) 35.7 - 48.1 fL [facility] NRBC abs 0.00 0.00 - 0.01 K/cumm [facility] Blood 11/14/2024 9:16 PM CDT 11/14/2024 10:29 PM CDT Lee Elena MD LAB BLOOD ORDERABLES rKystyna meyers Result [facility] [place] [address] * Blood culture Blood (11/14/2024 9:16 PM CDT) Report Final Report: No growth Blood 11/14/2024 9:16 PM CDT 11/14/2024 10:47 PM CDT Narrative [facility] - 11/19/2024 7:00 AM CDT From a [...] performance characteristics have been verified by the [facility]. For questions about this culture, contact the Microbiology Laboratory at [phone]. Interpretive data was last revised on 24. us Lee Elena MD LAB MICROBIOLOGY - GENERA L ORDERABLES Final Result [facility] [place] [address] * (ABNORMAL) Blood culture Blood (11/14/2024 9:16 PM CDT) Direct Specimen Exam Stain: Gram Positive Cocci in clusters Time to culture positivity (anaerobic media): 58.1 hours Notification of: Gram Positive Cocci in clusters called to and read back by: Ash Valencia M.D. [id number] on 11/17/2024 10:04:19 by: Nani Bueno ML Report Final Report: Staphylococcus aureus For susceptibility results, refer to accession number [id number] on the blood culture from 11/14/2024 (.) [facility] Organism STAPHYLOCOCCUS AUREUS [facility] Blood 11/14/2024 9:16 PM CDT 11/14/2024 10:47 PM CDT Narrative [facility] - 11/20/2024 8:57 AM CDT Collection->Peripheral 1. [...] performance characteristics have been verified by the [facility]. For questions about this culture, contact the Microbiology Laboratory at [phone]. Interpretive data was last revised on 24. Lee Elena MD LAB MICROBIOLOGY - GENERA L ORDERABLES Final Result Performing Organization Address [facility] Co de Phone Number [facility] [place] [address] * Protime-INR (11/14/2024 9:16 PM CDT) PT 12.1 9.7 - 13.0 sec INR 1.12 0.90 - 1.20 [facility] Comment: Interpretive data Oral anticoagulant therapeutic ranges: Venous thromboembolism prophylaxis or treatment: 2.0-3.0 CARDIOLOGY Standard range: 2.0-3.0 High-intensity range: 2.5-3.5 Refer to indication-specific guidelines for appropriate target ranges for prosthetic heart valve replacement. Current interpretive data was last revised on 2019. Blood 11/14/2024 9:16 PM CDT 11/14/2024 10:35 PM CDT Lee Elena MD LAB BLOOD ORDERABLES Krystyna l Result Performing Organization Address [facility] Co de Phone Number [facility] [place] [address] * Uric acid (11/14/2024 9:16 PM CDT) Uric acid 3.4 2.5 - 7.0 mg/dL Blood 11/14/2024 9:16 PM CDT 11/14/2024 10:34 PM CDT Lee Elena MD LAB BLOOD ORDERABLES Krystyna l Result Performing Organization Address City/[facility] Co de Phone Number [facility] [place] [address] * (ABNORMAL) Phosphorus (11/14/2024 9:16 PM CDT) Phosphorus, pl 5.1(H) 2.3 - 4.5 mg/dL Blood 11/14/2024 9:16 PM CDT 11/14/2024 10:29 PM CDT Lee Elena MD LAB BLOOD ORDERABLES Krystyna l Result Performing Organization Address [facility] de Phone Number [facility] [place] [address] * Magnesium (11/14/2024 9:16 PM CDT) Magnesium 1.9 1.4 - 2.5 mg/dL Blood 11/14/2024 9:16 PM CDT 11/14/2024 10:29 PM CDT Lee Elena MD LAB BLOOD ORDERABLES Krystyna l Result Performing Organization Address City/[facility] Co de Phone Number [facility] [place] [address] * Folate (11/14/2024 9:16 PM CDT) Folic acid 16.4 >=5.0 ng/mL Blood 11/14/2024 9:16 PM CDT 11/14/2024 10:29 PM CDT Lee Elena MD LAB BLOOD ORDERABLES Krystyna l Result Performing Organization Address City/[facility]/ZIP Co de Phone Number [facility] [place] [address] * (ABNORMAL) Vitamin B12 (11/14/2024 9:16 PM CDT) Pathologist [facility] [place] Vitamin B12 1,820(H) 230 - 1,250 pg/mL Blood 11/14/2024 9:16 PM CDT 11/14/2024 10:29 PM CDT Lee Elena MD LAB BLOOD ORDERABLES Krystyna l Result Performing Organization Address [facility] Co de Phone Number [facility] [place] [address] * (ABNORMAL) Hepatic function panel (11/14/2024 9:16 PM CDT) [facility] Bilirubin, total 0.6 0.1 - 1.2 mg/dL Bilirubin, direct 0.5(H) 0.1 - 0.3 mg/dL [facility] Protein, pl 4.7(L) 6.5 - 8.5 g/dL [facility] Albumin 2.0(L) 3.5 - 5.0 g/dL [facility] Alk phos 166(H) 40 - 130 Units/L [facility] ALT 10 7 - 45 Units/L [facility] AST 41 10 - 45 Units/L [facility] Blood 11/14/2024 9:16 PM CDT 11/14/2024 10:29 PM CDT Lee Elena MD LAB BLOOD ORDERABLES Krystyna l Result Performing Organization Address [facility] [place] [address] * (ABNORMAL) Basic metabolic panel (11/14/2024 9:16 PM CDT) [facility] Sodium 139 135 - 145 mmol/L Potassium, pl 3.7 3.3 - 4.9 mmol/L [facility] Chloride 100 97 - 110 mmol/L [facility] CO2 27 22 - 32 mmol/L [facility] Anion gap 12 2 - 15 mmol/L [facility] BUN 5(L) 6 - 25 mg/dL [facility] Creatinine 0.48(L) 0.60 - 1.10 mg/dL [facility] Glucose 84 70 - 199 mg/dL [facility] Comment: Interpretive Data Fasting glucose >/= [...] 2022. Calcium 7.7(L) 8.5 - 10.3 mg/dL [facility] Blood 11/14/2024 9:16 PM CDT 11/14/2024 10:29 PM CDT Lee Elena MD LAB BLOOD ORDERABLES Krystyna l Result Performing Organization Address City/[facility]/ZIP Co de Phone Number [facility] [place] [address] * POCT glucose (11/14/2024 7:37 PM CDT) Glucose, POC 119 70 - 199 mg/dL Blood 11/14/2024 7:37 PM CDT 11/14/2024 7:37 PM CDT Lee Elena MD LAB POCT ORDERABLES - DEV ICE Final Result Performing Organization Address City/[facility]/ZIP Co de Phone Number [facility] [place] [address] * POCT glucose (11/14/2024 4:07 PM CDT) Glucose, POC 89 70 - 199 mg/dL Blood 11/14/2024 4:07 PM CDT 11/14/2024 4:07 PM CDT us Lee Elena MD LAB POCT ORDERABLES - DEV ICE Final Result [facility] [place] [address] * TRANSESOPHAGEAL ECHO (MAXIMINO) W DOPPLER/CF WO CONTRAST (11/14/2024 2:19 PM CDT) Pathologist [facility] [place] LV EF 45 % CONS SCIMAGE Anatomical Region Laterality Modality Echocardiography 11/14/2024 1:49 PM CDT Narrative 11/15/2024 2:05 PM CDT [facility] [place] [address] Transesophageal Echocardiographic Report Patient Name: HAYLEY LEÓN L : 1990 (34y 9m) Gender: F Study Date: 11/14/2024 01:49:02 PM Ht(Inch): Wt(Lb): BSA: Vanstone Machine Operator: Location: [id number] Order Provider: JULISSA MCGOWAN BMI: Ref Provider: [...] Procedure Note Aubrey Horvath MD - 11/15/2024 [facility] [place] [address] Transesophageal Echocardiographic Report Patient Name: HAYLEY LEÓN L : 1990 (34y 9m) Gender: F Study Date: 11/14/2024 01:49:02 PM Ht(Inch): Wt(Lb): BSA: Vanstone Machine Operator: Location: [id number] Order Provider: GONZALEZJULISSA BMI: Ref Provider: GONZALEZJULISSA [...] CV ECHO PROCEDURES Fin al Result * IL AN ELECTIVE ENDOTRACHEAL AIRWAY, IL AN PROCEDURE PLACEHOLDER (11/14/2024 1:56 PM CDT) [...] POCT ORDERABLES - DEV ICE Final Result [facility] [place] [address] * POCT glucose (11/14/2024 10:49 AM CDT) Glucose, POC 88 70 - 199 mg/dL Blood 11/14/2024 10:4 9 AM CDT 11/14/2024 10:49 AM CDT Lee Elena MD LAB POCT ORDERABLES - [place] [address] * POCT glucose (11/14/2024 7:36 AM CDT) Glucose, POC 94 70 - 199 mg/dL Blood 11/14/2024 7:36 AM CDT 11/14/2024 7:36 AM CDT us Lee Elena MD LAB POCT ORDERABLES - [place] [address] * POCT glucose (11/14/2024 4:28 AM CDT) Glucose, POC 85 70 - 199 mg/dL Blood 11/14/2024 4:28 AM CDT 11/14/2024 4:28 AM CDT Lee Elena MD LAB POCT ORDERABLES - DEV ICE Final Result Performing Organization Address City/[facility]/[place] [address] * (ABNORMAL) Blood culture Blood (11/14/2024 12:27 AM CDT) [facility] Direct Specimen Exam Stain: Gram Positive Cocci in clusters Time to culture positivity (anaerobic media): 36.1 hours Report Final Report: Staphylococcus aureus For susceptibility results, refer to accession number [id number] on the blood culture from 11/14/2024 (.) [facility] Organism STAPHYLOCOCCUS AUREUS [facility] Blood 11/14/2024 12:2 7 AM CDT 11/14/2024 [...] performance characteristics have been verified by the [facility]. For questions about this culture, contact the Microbiology Laboratory at [phone]. Interpretive data was last revised on 24. us Lee Elena MD LAB MICROBIOLOGY - GENERA L ORDERABLES Final Result [facility] BACK [facility] [place] [address] * (ABNORMAL) Blood culture Blood (11/14/2024 12:16 AM CDT) Direct Specimen Exam Stain: Gram Positive Cocci in clusters Time to culture positivity (anaerobic media): 18.6 hours Time to culture positivity (aerobic media): 23.8 hours Direct Specimen Exam Molecular Analysis: Methicillin-suscep tible Staphylococcus aureus (MSSA) detected by the [facility] BCID-GP panel. This test does not exclude the possibility of a mixed bacterial infection. [facility] Report Final Report: Staphylococcus aureus Methicillin susceptible (MSSA) by penicillin binding protein 2a (PBP2a) testing. (.) [facility] Organism STAPHYLOCOCCUS AUREUS [facility] Blood 11/14/2024 12:1 6 AM CDT 11/14/2024 1:42 AM CDT Narrative [facility] - 11/17/2024 1:38 PM CDT Collection->Peripheral [...] performance characteristics have been verified by the [facility]. For questions about this culture, contact the Microbiology Laboratory at [phone]. Interpretive data was last revised on 24. [...] MICROBIOLOGY - GENERA L ORDERABLES Final Result [facility] [place] [address] * POCT glucose (11/13/2024 11:28 PM CDT) Glucose, POC 108 70 - 199 mg/dL Blood 11/13/2024 11:2 8 PM CDT 11/13/2024 11:28 PM CDT Lee Elena MD LAB POCT ORDERABLES - DEV ICE Final Result Performing Organization Address [facility] Co de Phone Number [facility] [place] [address] * eGFR (11/13/2024 9:44 PM CDT) eGFR [...] MD LAB BLOOD ORDERABLES Krystyna meyers Result [facility] [place] [address] * (ABNORMAL) Differential, auto (11/13/2024 9:44 PM CDT) Neutrophil abs 6.19 1.50 - 6.50 K/cumm Imm gran abs 0.35(H) 0.00 - 0.10 K/cumm [facility] Lymphocyte abs 2.02 0.80 - 3.30 K/cumm [facility] Monocyte abs 0.92(H) 0.20 - 0.80 K/cumm [facility] Eosinophil abs 0.08 0.00 - 0.50 K/cumm [facility] Basophil abs 0.05 0.00 - 0.10 K/cumm [facility] Neutrophil pct 64.5 % [facility] Comment: Interpretive Data Percent cell count reference ranges are not reported, since discordance with absolute values may lead to misinterpretation of CBC data. Current Interpretive Data was last revised on 2017. Imm gran pct 3.6 % [facility] Comment: Interpretive Data Percent cell count reference ranges are not reported, since discordance with absolute values may lead to misinterpretation of CBC data. Current Interpretive Data was last revised on 2017. Lymphocyte pct 21.0 % [facility] Comment: Interpretive Data Percent cell count reference ranges are not reported, since discordance with absolute values may lead to misinterpretation of CBC data. Current Interpretive Data was last revised on 2017. Monocyte pct 9.6 % [facility] Comment: Interpretive Data Percent cell count reference ranges are not reported, since discordance with absolute values may lead to misinterpretation of CBC data. Current Interpretive Data was last revised on 2017. Eosinophil pct 0.8 % [facility] Comment: Interpretive Data Percent cell count reference ranges are not reported, since discordance with absolute values may lead to misinterpretation of CBC data. Current Interpretive Data was last revised on 2017. Basophil pct 0.5 % [facility] Comment: Interpretive Data Percent cell count reference ranges are not reported, since discordance with absolute values may lead to misinterpretation of CBC data. Current Interpretive Data was last revised on 2017. Blood 11/13/2024 9:44 PM CDT 11/13/2024 10:32 PM CDT Lee Elena MD LAB BLOOD ORDERABLES Krystyna l Result Performing Organization Address [facility] Co de Phone Number [facility] Department [place] [address] * (ABNORMAL) CBC with auto differential (11/13/2024 9:44 PM CDT) WBC 9.61 3.80 - 9.90 K/cumm Hgb 8.2(L) 11.9 - 15.5 g/dL [facility] Hct 23.7(L) 35.6 - 45.5 % [facility] Plt 363 150 - 400 K/cumm [facility] MPV 12.3 9.1 - 12.3 fL [facility] RBC 2.50(L) 3.90 - 5.20 M/cumm [facility] MCV 94.8 81.3 - 96.4 fL [facility] MCH 32.8 27.1 - 33.3 pg [facility] MCHC 34.6 32.3 - 35.7 g/dL [facility] RDW CV 19.8(H) 11.1 - 14.9 % [facility] RDW SD 65.3(H) 35.7 - 48.1 fL [facility] NRBC abs 0.00 0.00 - 0.01 K/cumm [facility] Blood 11/13/2024 9:44 PM CDT 11/13/2024 10:32 PM CDT Lee Eelna MD LAB BLOOD ORDERABLES Krystyna l Result Performing Organization Address [facility]/ZIP Co de Phone Number [facility] [place] [address] * (ABNORMAL) Protime-INR (11/13/2024 9:44 PM CDT) [facility] PT 13.9(H) 9.7 - 13.0 sec INR 1.28(H) 0.90 - 1.20 [facility] Comment: Interpretive data Oral anticoagulant therapeutic ranges: Venous thromboembolism prophylaxis or treatment: 2.0-3.0 CARDIOLOGY Standard range: 2.0-3.0 High-intensity range: 2.5-3.5 Refer to indication-specific guidelines for appropriate target ranges for prosthetic heart valve replacement. Current interpretive data was last revised on 2019. Blood 11/13/2024 9:44 PM CDT 11/13/2024 10:44 PM CDT Lee Elena MD LAB BLOOD ORDERABLES Krystyna l Result Performing Organization Address City/[facility] Co de Phone Number [facility] [place] [address] * (ABNORMAL) Reticulocyte Count (11/13/2024 9:44 PM CDT) [facility] Retics, absolute 97(H) 20 - 87 K/cumm Retics 3.9(H) 0.4 - 2.9 % [facility] Reticulocyte Hgb 38.0 30.5 - 38.0 pg [facility] Blood 11/13/2024 9:44 PM CDT 11/13/2024 10:40 PM CDT Lee Elena MD LAB BLOOD ORDERABLES [place] [address] * Phosphorus (11/13/2024 9:44 PM CDT) [facility] Phosphorus, pl 2.5 2.3 - 4.5 mg/dL Blood 11/13/2024 9:44 PM CDT 11/13/2024 10:33 PM CDT Lee Elena MD LAB BLOOD ORDERABLES Krystyna l Result Performing Organization Address [facility] Co de Phone Number [facility] Department [place] [address] * Magnesium (11/13/2024 9:44 PM CDT) Magnesium 1.9 1.4 - 2.5 mg/dL Blood 11/13/2024 9:44 PM CDT 11/13/2024 10:33 PM CDT Result [facility] Lee Elena MD LAB BLOOD ORDERABLES Krystyna l Result Performing Organization Address [facility] de Phone Number [facility] [place] [address] * (ABNORMAL) Hepatic function panel (11/13/2024 9:44 PM CDT) Bilirubin, total 0.6 0.1 - 1.2 mg/dL Bilirubin, direct 0.4(H) 0.1 - 0.3 mg/dL [facility] Protein, pl 4.8(L) 6.5 - 8.5 g/dL [facility] Albumin 1.8(L) 3.5 - 5.0 g/dL [facility] Alk phos 173(H) 40 - 130 Units/L [facility] ALT 15 7 - 45 Units/L [facility] AST 49(H) 10 - 45 Units/L [facility] Blood 11/13/2024 9:44 PM CDT 11/13/2024 10:33 PM CDT Lee Elena MD LAB BLOOD ORDERABLES Krystyna l Result Performing Organization Address [facility] de Phone Number [facility] Department [place] [address] * (ABNORMAL) Basic metabolic panel (11/13/2024 9:44 PM CDT) [facility] Sodium 134(L) 135 - 145 mmol/L Potassium, pl 4.5 3.3 - 4.9 mmol/L [facility] Chloride 99 97 - 110 mmol/L [facility] CO2 27 22 - 32 mmol/L [facility] Anion gap 8 2 - 15 mmol/L [facility] BUN 5(L) 6 - 25 mg/dL [facility] Creatinine 0.41(L) 0.60 - 1.10 mg/dL [facility] Glucose 99 70 - 199 mg/dL [facility] Comment: Interpretive Data Fasting glucose >/= [...] 2022. Calcium 7.7(L) 8.5 - 10.3 mg/dL [facility] Blood 11/13/2024 9:44 PM CDT 11/13/2024 10:33 PM CDT us Lee Elena MD LAB BLOOD ORDERABLES Krystyna l Result [facility] Department [place] [address] * POCT glucose (11/13/2024 7:36 PM CDT) [facility] Glucose, POC 96 70 - 199 mg/dL Blood 11/13/2024 7:36 PM CDT 11/13/2024 7:36 PM CDT Lee Elena MD LAB POCT ORDERABLES - DEV ICE Final Result [facility] [place] [address] * POCT glucose (11/13/2024 5:07 PM CDT) Glucose, POC 94 70 - 199 mg/dL Blood 11/13/2024 5:07 PM CDT 11/13/2024 5:07 PM CDT Lee Elena MD LAB POCT ORDERABLES - DEV ICE Final Result Performing Organization Address [facility] Co de Phone Number [facility] [place] [address] * MRI Spine Thoracic and Lumbar W [...] ORDERABLES - DEV ICE Final Result [facility] Department [place] [address] * POCT glucose (11/13/2024 7:43 AM CDT) Glucose, POC 107 70 - 199 mg/dL Blood 11/13/2024 7:43 AM CDT 11/13/2024 7:43 AM CDT us Lee Elena MD LAB POCT ORDERABLES - DEV ICE Final Result Performing Organization Address [facility] Co de Phone Number [facility] [place] [address] * POCT glucose (11/13/2024 4:20 AM CDT) Glucose, POC 98 70 - 199 mg/dL Blood 11/13/2024 4:20 AM CDT 11/13/2024 4:20 AM CDT Lee Elena MD LAB POCT ORDERABLES - DEV ICE Final Result Performing Organization Address [facility] Co de Phone Number [facility] [place] [address] * POCT glucose (11/13/2024 1:03 AM CDT) Glucose, POC 104 70 - 199 mg/dL Blood 11/13/2024 1:03 AM CDT 11/13/2024 1:03 AM CDT Lee Elena MD LAB POCT ORDERABLES - DEV ICE Final Result Performing Organization Address [facility] Co de Phone Number [facility] Department [place] [address] * eGFR (11/12/2024 10:00 PM CDT) eGFR [...] MD LAB BLOOD ORDERABLES Krystyna meyers Result [facility] [place] [address] * (ABNORMAL) Differential, auto (11/12/2024 10:00 PM CDT) Neutrophil abs 7.33(H) 1.50 - 6.50 K/cumm Imm gran abs 0.41(H) 0.00 - 0.10 K/cumm [facility] Lymphocyte abs 1.98 0.80 - 3.30 K/cumm [facility] Monocyte abs 0.73 0.20 - 0.80 K/cumm [facility] Eosinophil abs 0.16 0.00 - 0.50 K/cumm [facility] Basophil abs 0.04 0.00 - 0.10 K/cumm [facility] Neutrophil pct 68.8 % [facility] Comment: Interpretive Data Percent cell count reference ranges are not reported, since discordance with absolute values may lead to misinterpretation of CBC data. Current Interpretive Data was last revised on 2017. Imm gran pct 3.8 % [facility] Comment: Interpretive Data Percent cell count reference ranges are not reported, since discordance with absolute values may lead to misinterpretation of CBC data. Current Interpretive Data was last revised on 2017. Lymphocyte pct 18.6 % [facility] Comment: Interpretive Data Percent cell count reference ranges are not reported, since discordance with absolute values may lead to misinterpretation of CBC data. Current Interpretive Data was last revised on 2017. Monocyte pct 6.9 % [facility] Comment: Interpretive Data Percent cell count reference ranges are not reported, since discordance with absolute values may lead to misinterpretation of CBC data. Current Interpretive Data was last revised on 2017. Eosinophil pct 1.5 % [facility] Comment: Interpretive Data Percent cell count reference ranges are not reported, since discordance with absolute values may lead to misinterpretation of CBC data. Current Interpretive Data was last revised on 2017. Basophil pct 0.4 % [facility] Comment: Interpretive Data Percent cell count reference ranges are not reported, since discordance with absolute values may lead to misinterpretation of CBC data. Current Interpretive Data was last revised on 2017. Blood 11/12/2024 10:0 0 PM CDT 11/13/2024 12:47 AM CDT Lee Elena MD LAB BLOOD ORDERABLES Krystyna meyers Result [facility] [place] [address] * (ABNORMAL) CBC with auto differential (11/12/2024 10:00 PM CDT) WBC 10.65(H) 3.80 - 9.90 K/cumm Hgb 9.4(L) 11.9 - 15.5 g/dL [facility] Hct 27.1(L) 35.6 - 45.5 % [facility] Plt 241 150 - 400 K/cumm [facility] MPV 12.4(H) 9.1 - 12.3 fL [facility] RBC 2.85(L) 3.90 - 5.20 M/cumm [facility] MCV 95.1 81.3 - 96.4 fL [facility] MCH 33.0 27.1 - 33.3 pg [facility] MCHC 34.7 32.3 - 35.7 g/dL [facility] RDW CV 19.0(H) 11.1 - 14.9 % [facility] RDW SD 65.0(H) 35.7 - 48.1 fL [facility] NRBC abs 0.00 0.00 - 0.01 K/cumm [facility] Blood 11/12/2024 10:0 0 PM CDT 11/13/2024 12:47 AM CDT us Lee Elena MD LAB BLOOD ORDERABLES Krystyna meyers Result [facility] [place] [address] * (ABNORMAL) Blood culture Blood (11/12/2024 10:00 PM CDT) Direct Specimen Exam Stain: Gram Positive Cocci in clusters Time to culture positivity (aerobic media): 20.3 hours Time to culture positivity (anaerobic media): 3.3 days Report Final Report: Staphylococcus aureus For susceptibility results, refer to accession number [id number] on the blood culture from 11/09/2024 (.) [facility] Organism STAPHYLOCOCCUS AUREUS [facility] Blood 11/12/2024 10:0 0 PM CDT 11/13/2024 12:57 AM CDT Narrative [facility] - 11/19/2024 11:19 AM CDT Collection->Peripheral 1. [...] performance characteristics have been verified by the [facility]. For questions about this culture, contact the Microbiology Laboratory at [phone]. Interpretive data was last revised on 24. Lee Elena MD LAB MICROBIOLOGY - GENERA L ORDERABLES Final Result Performing Organization Address [facility] de Phone Number [facility] [place] [address] * Protime-INR (11/12/2024 10:00 PM CDT) PT 12.9 9.7 - 13.0 sec INR 1.19 0.90 - 1.20 [facility] Comment: Interpretive data Oral anticoagulant therapeutic [...] ORDERABLES Krystyna l Result Performing Organization Address [facility] de Phone Number [facility] [place] [address] * Phosphorus (11/12/2024 10:00 PM CDT) Phosphorus, pl 2.8 2.3 - 4.5 mg/dL Blood 11/12/2024 10:0 0 PM CDT 11/13/2024 12:47 AM CDT Lee Elena MD LAB BLOOD ORDERABLES Krystyna l Result Performing Organization Address City/[facility]/ZIP Co de Phone Number [facility] [place] [address] * Magnesium (11/12/2024 10:00 PM CDT) [facility] Magnesium 1.6 1.4 - 2.5 mg/dL Blood 11/12/2024 10:0 0 PM CDT 11/13/2024 12:47 AM CDT Lee Elena MD LAB BLOOD ORDERABLES Krystyna l Result Performing Organization Address [facility] Co de Phone Number [facility] [place] [address] * (ABNORMAL) Hepatic function panel (11/12/2024 10:00 PM CDT) [facility] Bilirubin, total 0.9 0.1 - 1.2 mg/dL Bilirubin, direct 0.6(H) 0.1 - 0.3 mg/dL [facility] Protein, pl 5.0(L) 6.5 - 8.5 g/dL [facility] Albumin 1.9(L) 3.5 - 5.0 g/dL [facility] Alk phos 180(H) 40 - 130 Units/L [facility] ALT 23 7 - 45 Units/L [facility] AST 57(H) 10 - 45 Units/L [facility] Blood 11/12/2024 10:0 0 PM CDT 11/13/2024 12:47 AM CDT Lee Elena MD LAB BLOOD ORDERABLES Krystyna l Result Performing Organization Address [facility] Co de Phone Number [facility] [place] [address] * (ABNORMAL) Basic metabolic panel (11/12/2024 10:00 PM CDT) [facility] Sodium 135 135 - 145 mmol/L Potassium, pl 3.2(L) 3.3 - 4.9 mmol/L [facility] Chloride 98 97 - 110 mmol/L [facility] CO2 30 22 - 32 mmol/L [facility] Anion gap 7 2 - 15 mmol/L [facility] BUN 6 6 - 25 mg/dL [facility] Creatinine 0.43(L) 0.60 - 1.10 mg/dL [facility] Glucose 84 70 - 199 mg/dL [facility] Comment: Interpretive Data Fasting glucose >/= [...] 2022. Calcium 8.1(L) 8.5 - 10.3 mg/dL [facility] Blood 11/12/2024 10:0 0 PM CDT 11/13/2024 12:47 AM CDT us Lee Elena MD LAB BLOOD ORDERABLES Krystyna meyers Result [facility] [place] [address] * ECG 12 lead (11/12/2024 9:35 PM CDT) Ventricular Rate EKG/Min 93 BPM [facility] Atrial Rate 93 BPM [facility] IL-Interval (MSEC) 110 ms [facility] QRS-Interval (MSEC) 70 ms [facility] QT-Interval (MSEC) 396 ms [facility] QTc 492 ms [facility] P [place] 28 degrees [facility] R [place] 51 degrees [facility] T [place] 163 degrees [facility] Diagnosis Sinus rhythm with short [place] Low voltage QRS Possible Anterolateral infarct , age undetermined Abnormal ECG When compared with ECG of 09-NOV-2024 01:56, Significant changes have occurred Confirmed by Gustabo Mcdaniels MD ([id number]) on 11/14/2024 1:25:12 PM [facility] 11/12/2024 9:35 PM CDT 11/14/2024 1:25 PM CDT Lee Elena MD ECG ORDERABLES Final Res ult Performing Organization Address [facility] de Phone Number [facility] * POCT glucose (11/12/2024 8:23 PM CDT) Glucose, POC 109 70 - 199 mg/dL Blood 11/12/2024 8:23 PM CDT 11/12/2024 8:23 PM CDT Lee Elena MD LAB POCT ORDERABLES - DEV ICE Final Result Performing Organization Address [facility] de Phone Number [facility] [place] [address] * POCT glucose (11/12/2024 4:17 PM CDT) Glucose, POC 132 70 - 199 mg/dL Blood 11/12/2024 4:17 PM CDT 11/12/2024 4:17 PM CDT Lee Elena MD LAB POCT ORDERABLES - DEV ICE Final Result Performing Organization Address [facility] de Phone Number [facility] [place] [address] * MRSA Only (Staphylococcus aureus) Culture Nasal (11/12/2024 2:37 PM CDT) Report Final Report: Negative Nasal 11/12/2024 2:37 PM CDT 11/12/2024 3:35 PM CDT Narrative [facility] - 11/13/2024 6:40 PM CDT Testing performed by [facility] ([phone]). us Lee Elena MD LAB MICROBIOLOGY - GENERA L ORDERABLES Final Result [facility] [place] [address] * Respiratory pathogen panel Nasopharyngeal (11/12/2024 2:37 PM CDT) Pathologist [facility] Influenza A RNA Not Detected Not Detected Influenza B RNA Not Detected Not Detected [facility] RSV RNA Not Detected Not Detected [facility] COVID-19 RNA Not Detected Not Detected [facility] Coronavirus 229E RNA Not Detected Not Detected [facility] Coronavirus HKU1 RNA Not Detected Not Detected [facility] Coronavirus NL63 RNA Not Detected Not Detected [facility] Coronavirus OC43 RNA Not Detected Not Detected [facility] Adenovirus DNA Not Detected Not Detected [facility] Metapneumovirus RNA Not Detected Not Detected [facility] Rhinovirus/Enterov irus RNA Not Detected Not Detected [facility] Parainfluenza 1 RNA Not Detected Not Detected [facility] Parainfluenza 2 RNA Not Detected Not Detected [facility] Parainfluenza 3 RNA Not Detected Not Detected [facility] Parainfluenza 4 RNA Not Detected Not Detected [facility] B. pertussis DNA Not Detected Not Detected [facility] B. parapertussis DNA Not Detected Not Detected [facility] C. pneumoniae DNA Not Detected Not Detected [facility] M. pneumoniae DNA Not Detected Not Detected [facility] Nasopharyngeal 11/12/2024 2: 37 PM CDT 11/12/2024 3:27 PM CDT Narrative [facility] - 11/12/2024 4:42 PM CDT Is the Patient experiencing symptoms consistent with COVID?->No Surveillance testing for transplant patient?->No Interpretive Data The [employer] FilmArray Respiratory Panel (RP2.1) assay is a [...] assay has FDA clearance for testing of [employer] swabs. The performance of additional specimen types has been assessed by the performing laboratory. The performance characteristics of this assay have been determined by [facility] Infectious Disease [facility]. Current interpretive data was last revised on 22. Lee Elena MD LAB MICROBIOLOGY - GENERA L ORDERABLES Final Result [facility] [place] [address] * POCT glucose (11/12/2024 11:33 AM CDT) Glucose, POC 113 70 - 199 mg/dL Blood 11/12/2024 11:3 3 AM CDT 11/12/2024 11:33 AM CDT us Lee Elena MD LAB POCT ORDERABLES - DEV ICE Final Result Performing Organization Address City/State/[facility] Co de Phone Number [facility] [place] [address] * XR Chest 1 View (11/12/2024 11:33 [...] DEV ICE Final Result Performing Organization Address [facility] de Phone Number [facility] [place] [address] * POCT glucose (11/12/2024 4:06 AM CDT) Glucose, POC 113 70 - 199 mg/dL Blood 11/12/2024 4:06 AM CDT 11/12/2024 4:06 AM CDT Lee Elena MD LAB POCT ORDERABLES - DEV ICE Final Result Performing Organization Address [facility] de Phone Number [facility] [place] [address] * POCT glucose (11/12/2024 12:16 AM CDT) Glucose, POC 110 70 - 199 mg/dL Blood 11/12/2024 12:1 6 AM CDT 11/12/2024 12:16 AM CDT Lee Elena MD LAB POCT ORDERABLES - DEV ICE Final Result Performing Organization Address [facility]/[place] [address] * eGFR (11/11/2024 10:12 PM CDT) eGFR [...] MD LAB BLOOD ORDERABLES Krystyna meyers Result [facility] [place] [address] * (ABNORMAL) Differential, auto (11/11/2024 10:12 PM CDT) Neutrophil abs 9.51(H) 1.50 - 6.50 K/cumm Imm gran abs 0.27(H) 0.00 - 0.10 K/cumm [facility] Lymphocyte abs 2.15 0.80 - 3.30 K/cumm [facility] Monocyte abs 1.16(H) 0.20 - 0.80 K/cumm [facility] Eosinophil abs 0.10 0.00 - 0.50 K/cumm [facility] Basophil abs 0.06 0.00 - 0.10 K/cumm [facility] Neutrophil pct 71.7 % [facility] Comment: Interpretive Data Percent cell count reference ranges are not reported, since discordance with absolute values may lead to misinterpretation of CBC data. Current Interpretive Data was last revised on 2017. Imm gran pct 2.0 % [facility] Comment: Interpretive Data Percent cell count reference ranges are not reported, since discordance with absolute values may lead to misinterpretation of CBC data. Current Interpretive Data was last revised on 2017. Lymphocyte pct 16.2 % [facility] Comment: Interpretive Data Percent cell count reference ranges are not reported, since discordance with absolute values may lead to misinterpretation of CBC data. Current Interpretive Data was last revised on 2017. Monocyte pct 8.8 % [facility] Comment: Interpretive Data Percent cell count reference ranges are not reported, since discordance with absolute values may lead to misinterpretation of CBC data. Current Interpretive Data was last revised on 2017. Eosinophil pct 0.8 % [facility] Comment: Interpretive Data Percent cell count reference ranges are not reported, since discordance with absolute values may lead to misinterpretation of CBC data. Current Interpretive Data was last revised on 2017. Basophil pct 0.5 % [facility] Comment: Interpretive Data Percent cell count reference ranges are not reported, since discordance with absolute values may lead to misinterpretation of CBC data. Current Interpretive Data was last revised on 2017. Blood 11/11/2024 10:1 2 PM CDT 11/11/2024 11:52 PM CDT us Lee Elena MD LAB BLOOD ORDERABLES Krystyna meyers Result [facility] [place] [address] * (ABNORMAL) CBC with auto differential (11/11/2024 10:12 PM CDT) WBC 13.25(H) 3.80 - 9.90 K/cumm Hgb 10.3(L) 11.9 - 15.5 g/dL [facility] Hct 29.0(L) 35.6 - 45.5 % [facility] Plt 162 150 - 400 K/cumm [facility] MPV 12.7(H) 9.1 - 12.3 fL [facility] RBC 3.10(L) 3.90 - 5.20 M/cumm [facility] MCV 93.5 81.3 - 96.4 fL [facility] MCH 33.2 27.1 - 33.3 pg [facility] MCHC 35.5 32.3 - 35.7 g/dL [facility] RDW CV 19.4(H) 11.1 - 14.9 % [facility] RDW SD 65.6(H) 35.7 - 48.1 fL [facility] NRBC abs 0.02(H) 0.00 - 0.01 K/cumm [facility] Blood 11/11/2024 10:1 2 PM CDT 11/11/2024 11:52 PM CDT us Lee Elena MD LAB BLOOD ORDERABLES Krystyna meyers Result [facility] [place] [address] * (ABNORMAL) Blood culture Blood (11/11/2024 10:12 PM CDT) Direct Specimen Exam Stain: Gram Positive Cocci in clusters Time to culture positivity (aerobic media): 13.7 hours Time to culture positivity (anaerobic media): 21.0 hours Report Final Report: Staphylococcus aureus For susceptibility results, refer to accession number [id number] on the blood culture from 11/09/2024 (.) [facility] Organism STAPHYLOCOCCUS AUREUS [facility] Blood 11/11/2024 10:1 2 PM CDT 11/11/2024 11:40 PM CDT Narrative [facility] - 11/15/2024 10:39 AM CDT From a [...] performance characteristics have been verified by the [facility]. For questions about this culture, contact the Microbiology Laboratory at [phone]. Interpretive data was last revised on 24. us Lee Elena MD LAB MICROBIOLOGY - GENERA L ORDERABLES Final Result [facility] [place] [address] * (ABNORMAL) Blood culture Blood (11/11/2024 10:12 PM CDT) Direct Specimen Exam Stain: Gram Positive Cocci in clusters Time to culture positivity (aerobic media): 17.0 hours Time to culture positivity (anaerobic media): 21.2 hours Report Final Report: Staphylococcus aureus For susceptibility results, refer to accession number [id number] on the blood culture from 11/09/2024 (.) [facility] Organism STAPHYLOCOCCUS AUREUS [facility] Blood 11/11/2024 10:1 2 PM CDT 11/11/2024 11:40 PM CDT Narrative [facility] - 11/15/2024 10:23 AM CDT Collection->Peripheral 1. [...] performance characteristics have been verified by the [facility]. For questions about this culture, contact the Microbiology Laboratory at [phone]. Interpretive data was last revised on 24. Lee Elena MD LAB MICROBIOLOGY - GENERA L ORDERABLES Final Result Performing Organization Address [facility] Co de Phone Number [facility] [place] [address] * Protime-INR (11/11/2024 10:12 PM CDT) PT 12.3 9.7 - 13.0 sec INR 1.14 0.90 - 1.20 [facility] Comment: Interpretive data Oral anticoagulant therapeutic [...] ORDERABLES Krystyna l Result Performing Organization Address [facility] Co de Phone Number [facility] Department [employer] [place], [place] [id number] * (ABNORMAL) Phosphorus (11/11/2024 10:12 PM CDT) Phosphorus, pl 1.9(L) 2.3 - 4.5 mg/dL Blood 11/11/2024 10:1 2 PM CDT 11/11/2024 11:52 PM CDT Lee Elena MD LAB BLOOD ORDERABLES Krystyna l Result [facility] [place] [address] * Magnesium (11/11/2024 10:12 PM CDT) Pathologist [facility] Magnesium 1.7 1.4 - 2.5 mg/dL Blood 11/11/2024 10:1 2 PM CDT 11/11/2024 11:52 PM CDT Result [facility] Lee Elena MD LAB BLOOD ORDERABLES Krystyna l Result Performing Organization Address [facility] Co de Phone Number [facility] [place] [address] * (ABNORMAL) Hepatic function panel (11/11/2024 10:12 PM CDT) Bilirubin, total 1.2 0.1 - 1.2 mg/dL Bilirubin, direct 0.6(H) 0.1 - 0.3 mg/dL [facility] Protein, pl 5.1(L) 6.5 - 8.5 g/dL [facility] Albumin 1.9(L) 3.5 - 5.0 g/dL [facility] Alk phos 200(H) 40 - 130 Units/L [facility] ALT 34 7 - 45 Units/L [facility] AST 70(H) 10 - 45 Units/L [facility] Blood 11/11/2024 10:1 2 PM CDT 11/11/2024 11:52 PM CDT Result [facility] Lee Elena MD LAB BLOOD ORDERABLES Krystyna l Result Performing Organization Address City/[facility]/ZIP Co de Phone Number [facility] [place] [address] * (ABNORMAL) Basic metabolic panel (11/11/2024 10:12 PM CDT) Sodium 131(L) 135 - 145 mmol/L Potassium, pl 4.9 3.3 - 4.9 mmol/L [facility] Chloride 98 97 - 110 mmol/L [facility] CO2 23 22 - 32 mmol/L [facility] Anion gap 10 2 - 15 mmol/L [facility] BUN 6 6 - 25 mg/dL [facility] Creatinine 0.41(L) 0.60 - 1.10 mg/dL [facility] Glucose 78 70 - 199 mg/dL [facility] Comment: Interpretive Data Fasting glucose >/= [...] 2022. Calcium 7.8(L) 8.5 - 10.3 mg/dL [facility] Blood 11/11/2024 10:1 2 PM CDT 11/11/2024 11:52 PM CDT Lee Elena MD LAB BLOOD ORDERABLES Krystyna l Result [facility] Department [place] [address] * POCT glucose (11/11/2024 8:08 PM CDT) Glucose, POC 111 70 - 199 mg/dL Blood 11/11/2024 8:08 PM CDT 11/11/2024 8:08 PM CDT Lee Elena MD LAB POCT ORDERABLES - DEV ICE Final Result Performing Organization Address City/[facility] Co de Phone Number [facility] [place] [address] * POCT glucose (11/11/2024 4:42 PM CDT) Glucose, POC 108 70 - 199 mg/dL Blood 11/11/2024 4:42 PM CDT 11/11/2024 4:42 PM CDT Lee Elena MD LAB POCT ORDERABLES - DEV ICE Final Result Performing Organization Address [facility] Co de Phone Number [facility] [place] [address] * POCT glucose (11/11/2024 12:11 PM CDT) Pathologist [facility] Glucose, POC 115 70 - 199 mg/dL Blood 11/11/2024 12:1 1 PM CDT 11/11/2024 12:11 PM CDT us Lee Elena MD LAB POCT ORDERABLES - DEV ICE Final Result Performing Organization Address [facility] Co de Phone Number [facility] Department [place] [address] * eGFR (11/11/2024 10:41 AM CDT) eGFR [...] ORDERABLES Krystyna l Result Performing Organization Address City/[facility]/ZIP Co de Phone Number [facility] [place] [address] * Phosphorus (11/11/2024 10:41 AM CDT) Phosphorus, pl 2.3 2.3 - 4.5 mg/dL Blood 11/11/2024 10:4 1 AM CDT 11/11/2024 10:53 AM CDT Lee Elena MD LAB BLOOD ORDERABLES Krystyna l Result Performing Organization Address [facility] Co de Phone Number [facility] [place] [address] * Magnesium (11/11/2024 10:41 AM CDT) Magnesium 1.6 1.4 - 2.5 mg/dL Blood 11/11/2024 10:4 1 AM CDT 11/11/2024 10:53 AM CDT Lee Elena MD LAB BLOOD ORDERABLES Krystyna l Result Performing Organization Address City/[facility] Co de Phone Number [facility] Department [place] [address] * (ABNORMAL) Basic metabolic panel (11/11/2024 10:41 AM CDT) Sodium 133(L) 135 - 145 mmol/L Potassium, pl 5.4(H) 3.3 - 4.9 mmol/L [facility] Comment:Hemolyzed; Potassium value may be falsely elevated by as much as 0.3-0.5 mmol/L. Suggest redraw and reanalysis. Chloride 104 97 - 110 mmol/L [facility] CO2 23 22 - 32 mmol/L [facility] Anion gap 6 2 - 15 mmol/L [facility] BUN 6 6 - 25 mg/dL [facility] Creatinine 0.37(L) 0.60 - 1.10 mg/dL [facility] Glucose 96 70 - 199 mg/dL [facility] Comment: Interpretive Data Fasting glucose >/= [...] 2022. Calcium 7.7(L) 8.5 - 10.3 mg/dL [facility] Blood 11/11/2024 10:4 1 AM CDT 11/11/2024 10:53 AM CDT us Lee Elena MD LAB BLOOD ORDERABLES Krystyna l Result [facility] [place] [address] * POCT glucose (11/11/2024 9:24 AM CDT) Glucose, POC 98 70 - 199 mg/dL Blood 11/11/2024 9:24 AM CDT 11/11/2024 9:24 AM CDT Lee Elena MD LAB POCT ORDERABLES - DEV ICE Final Result SH[facility] [place] [address] * POCT glucose (11/10/2024 11:50 PM CDT) Glucose, POC 124 70 - 199 mg/dL Blood 11/10/2024 11:5 0 PM CDT 11/10/2024 11:50 PM CDT Lee Elena MD LAB POCT ORDERABLES - DEV ICE Final Result Performing Organization Address [facility] Co de Phone Number SH[facility] [place] [address] * eGFR (11/10/2024 9:24 PM CDT) eGFR [...] MD LAB BLOOD ORDERABLES Krystyna meyers Result [facility] [place] [address] * (ABNORMAL) Differential, auto (11/10/2024 9:24 PM CDT) Neutrophil abs 9.18(H) 1.50 - 6.50 K/cumm Imm gran abs 0.15(H) 0.00 - 0.10 K/cumm [facility] Lymphocyte abs 1.01 0.80 - 3.30 K/cumm [facility] Monocyte abs 0.84(H) 0.20 - 0.80 K/cumm [facility] Eosinophil abs 0.03 0.00 - 0.50 K/cumm [facility] Basophil abs 0.02 0.00 - 0.10 K/cumm [facility] Neutrophil pct 81.7 % [facility] Comment: Interpretive Data Percent cell count reference ranges are not reported, since discordance with absolute values may lead to misinterpretation of CBC data. Current Interpretive Data was last revised on 2017. Imm gran pct 1.3 % [facility] Comment: Interpretive Data Percent cell count reference ranges are not reported, since discordance with absolute values may lead to misinterpretation of CBC data. Current Interpretive Data was last revised on 2017. Lymphocyte pct 9.0 % [facility] Comment: Interpretive Data Percent cell count reference ranges are not reported, since discordance with absolute values may lead to misinterpretation of CBC data. Current Interpretive Data was last revised on 2017. Monocyte pct 7.5 % [facility] Comment: Interpretive Data Percent cell count reference ranges are not reported, since discordance with absolute values may lead to misinterpretation of CBC data. Current Interpretive Data was last revised on 2017. Eosinophil pct 0.3 % [facility] Comment: Interpretive Data Percent cell count reference ranges are not reported, since discordance with absolute values may lead to misinterpretation of CBC data. Current Interpretive Data was last revised on 2017. Basophil pct 0.2 % [facility] Comment: Interpretive Data Percent cell count reference ranges are not reported, since discordance with absolute values may lead to misinterpretation of CBC data. Current Interpretive Data was last revised on 2017. Blood 11/10/2024 9:24 PM CDT 11/10/2024 11:00 PM CDT Lee Elena MD LAB BLOOD ORDERABLES Krystyna l Result Performing Organization Address City/[facility] Co de Phone Number [facility] Department [place] [address] * (ABNORMAL) CBC with auto differential (11/10/2024 9:24 PM CDT) Pathologist [facility] WBC 11.23(H) 3.80 - 9.90 K/cumm Hgb 10.0(L) 11.9 - 15.5 g/dL [facility] Hct 29.3(L) 35.6 - 45.5 % [facility] Plt 129(L) 150 - 400 K/cumm [facility] Comment:No clot detected in sample. MPV 12.1 9.1 - 12.3 fL [facility] RBC 3.09(L) 3.90 - 5.20 M/cumm [facility] MCV 94.8 81.3 - 96.4 fL [facility] Comment:MCV delta due to [place] arent blood transfusion. MCH 32.4 27.1 - 33.3 pg [facility] MCHC 34.1 32.3 - 35.7 g/dL [facility] RDW CV 19.7(H) 11.1 - 14.9 % [facility] RDW SD 67.2(H) 35.7 - 48.1 fL [facility] NRBC abs 0.00 0.00 - 0.01 K/cumm [facility] Blood 11/10/2024 9:24 PM CDT 11/10/2024 11:00 PM CDT Lee Elena MD LAB BLOOD ORDERABLES Krystyna l Result Performing Organization Address [facility]/[place] [address] * Protime-INR (11/10/2024 9:24 PM CDT) Pathologist [facility] PT 12.6 9.7 - 13.0 sec INR 1.16 0.90 - 1.20 [facility] Comment: Interpretive data Oral anticoagulant therapeutic ranges: Venous thromboembolism prophylaxis or treatment: 2.0-3.0 CARDIOLOGY Standard range: 2.0-3.0 High-intensity range: 2.5-3.5 Refer to indication-specific guidelines for appropriate target ranges for prosthetic heart valve replacement. Current interpretive data was last revised on 2019. Blood 11/10/2024 9:24 PM CDT 11/10/2024 11:05 PM CDT Lee Elena MD LAB BLOOD ORDERABLES Krystyna l Result Performing Organization Address [facility] de Phone Number [facility] [place] [address] * (ABNORMAL) Phosphorus (11/10/2024 9:24 PM CDT) [facility] Phosphorus, pl 2.1(L) 2.3 - 4.5 mg/dL Blood 11/10/2024 9:24 PM CDT 11/10/2024 11:00 PM CDT Lee Elena MD LAB BLOOD ORDERABLES Krystyna l Result Performing Organization Address [facility] [place] [address] * (ABNORMAL) Magnesium (11/10/2024 9:24 PM CDT) [facility] Magnesium 2.8(H) 1.4 - 2.5 mg/dL Blood 11/10/2024 9:24 PM CDT 11/10/2024 11:00 PM CDT Lee Elena MD LAB BLOOD ORDERABLES Krystyna l Result Performing Organization Address [facility] Co de Phone Number [facility] [place] [address] * (ABNORMAL) Hepatic function panel (11/10/2024 9:24 PM CDT) Pathologist [facility] Bilirubin, total 1.2 0.1 - 1.2 mg/dL Bilirubin, direct 0.9(H) 0.1 - 0.3 mg/dL [facility] Protein, pl 4.9(L) 6.5 - 8.5 g/dL [facility] Albumin 1.8(L) 3.5 - 5.0 g/dL [facility] Alk phos 161(H) 40 - 130 Units/L [facility] ALT 72(H) 7 - 45 Units/L [facility] AST 100(H) 10 - 45 Units/L [facility] Blood 11/10/2024 9:24 PM CDT 11/10/2024 11:00 PM CDT us Lee Elena MD LAB BLOOD ORDERABLES Krystyna l Result Performing Organization Address [facility] de Phone Number [facility] [place] [address] * (ABNORMAL) Basic metabolic panel (11/10/2024 9:24 PM CDT) Sodium 134(L) 135 - 145 mmol/L Potassium, pl 3.4 3.3 - 4.9 mmol/L [facility] Chloride 102 97 - 110 mmol/L [facility] CO2 22 22 - 32 mmol/L [facility] Anion gap 10 2 - 15 mmol/L [facility] BUN 5(L) 6 - 25 mg/dL [facility] Creatinine 0.35(L) 0.60 - 1.10 mg/dL [facility] Glucose 111 70 - 199 mg/dL [facility] Comment: Interpretive Data Fasting glucose >/= [...] 2022. Calcium 8.1(L) 8.5 - 10.3 mg/dL [facility] Blood 11/10/2024 9:24 PM CDT 11/10/2024 11:00 PM CDT Lee Elena MD LAB BLOOD ORDERABLES Krystyna l Result Performing Organization Address City/[facility]/ZIP Co de Phone Number [facility] Department [place] [address] * POCT glucose (11/10/2024 8:06 PM CDT) Glucose, POC 139 70 - 199 mg/dL Blood 11/10/2024 8:06 PM CDT 11/10/2024 8:06 PM CDT Result [facility] Lee Elena MD LAB POCT ORDERABLES - DEV ICE Final Result [facility] [place] [address] * POCT glucose (11/10/2024 4:37 PM CDT) Glucose, POC 104 70 - 199 mg/dL Blood 11/10/2024 4:37 PM CDT 11/10/2024 4:37 PM CDT Lee Elena MD LAB POCT ORDERABLES - DEV ICE Final Result [facility] [place] [address] * XR Ribs Bilateral 4 or More [...] LAB BLOOD ORDERABLES Final Resul t [facility] [place] [address] * (ABNORMAL) Blood culture Blood (11/10/2024 2:37 PM CDT) Direct Specimen Exam Stain: Gram Positive Cocci in clusters Time to culture positivity (aerobic media): 22.3 hours Time to culture positivity (anaerobic media): 29.9 hours Report Final Report: Staphylococcus aureus For susceptibility results, refer to accession number [id number] on the blood culture from 11/09/2024 (.) [facility] Organism STAPHYLOCOCCUS AUREUS [facility] Blood 11/10/2024 2:37 PM CDT 11/10/2024 3:44 PM CDT Narrative [facility] - 11/14/2024 1:07 PM CDT From a [...] performance characteristics have been verified by the [facility]. For questions about this culture, contact the Microbiology Laboratory at [phone]. Interpretive data was last revised on 24. us Lee Elena MD LAB MICROBIOLOGY - GENERA L ORDERABLES Final Result Performing Organization Address [facility]/ZIP Co de Phone Number SHONA BACK [facility] [place] [address] * (ABNORMAL) Blood culture Blood (11/10/2024 2:37 PM CDT) Direct Specimen Exam Stain: Gram Positive Cocci in clusters Time to culture positivity (aerobic media): 18.6 hours Time to culture positivity (anaerobic media): 22.9 hours Report Final Report: Staphylococcus aureus For susceptibility results, refer to accession number [id number] on the blood culture from 11/09/2024 (.) [facility] Organism STAPHYLOCOCCUS AUREUS [facility] Blood 11/10/2024 2:37 PM CDT 11/10/2024 3:44 PM CDT Narrative [facility] - 11/14/2024 1:09 PM CDT Collection->Peripheral 1. [...] performance characteristics have been verified by the [facility]. For questions about this culture, contact the Microbiology Laboratory at [phone]. Interpretive data was last revised on 24. Lee Elena MD LAB MICROBIOLOGY - GENERA L ORDERABLES Final Result [facility] [place] [address] * Transfuse RBC (11/10/2024 2:03 PM CDT) Blood Lee Elena MD BLOOD TRANSFUSION ORDERAB LES Final Result Performing Organization Address [facility] Co de Phone Number [facility] [place] [address] * eGFR (11/10/2024 2:00 PM CDT) eGFR [...] ORDERABLES Krystyna l Result Performing Organization Address [facility] Co de Phone Number [facility] [place] [address] * Phosphorus (11/10/2024 2:00 PM CDT) Phosphorus, pl 2.7 2.3 - 4.5 mg/dL Blood 11/10/2024 2:00 PM CDT 11/10/2024 3:40 PM CDT Lee Elena MD LAB BLOOD ORDERABLES Krystyna l Result Performing Organization Address City/[facility]/ZIP Co de Phone Number [facility] [place] [address] * Magnesium (11/10/2024 2:00 PM CDT) [facility] Magnesium 1.5 1.4 - 2.5 mg/dL Blood 11/10/2024 2:00 PM CDT 11/10/2024 3:40 PM CDT Lee Elena MD LAB BLOOD ORDERABLES Krystyna l Result Performing Organization Address [facility]/[place] de Phone Number [facility] [place] [address] * (ABNORMAL) Basic metabolic panel (11/10/2024 2:00 PM CDT) [facility] Sodium 135 135 - 145 mmol/L Potassium, pl 3.8 3.3 - 4.9 mmol/L [facility] Chloride 104 97 - 110 mmol/L [facility] CO2 20(L) 22 - 32 mmol/L [facility] Anion gap 11 2 - 15 mmol/L [facility] BUN 6 6 - 25 mg/dL [facility] Creatinine 0.36(L) 0.60 - 1.10 mg/dL [facility] Glucose 99 70 - 199 mg/dL [facility] Comment: Interpretive Data Fasting glucose >/= [...] 2022. Calcium 8.1(L) 8.5 - 10.3 mg/dL [facility] Blood 11/10/2024 2:00 PM CDT 11/10/2024 3:40 PM CDT Lee Elena MD LAB BLOOD ORDERABLES Krystyna l Result Performing Organization Address [facility] Co de Phone Number [facility] [place] [address] * POCT glucose (11/10/2024 11:29 AM CDT) Glucose, POC 131 70 - 199 mg/dL Blood 11/10/2024 11:2 9 AM CDT 11/10/2024 11:29 AM CDT Lee Elena MD LAB POCT ORDERABLES - DEV ICE Final Result Performing Organization Address [facility] de Phone Number [facility] [place] [address] * Type and screen (11/10/2024 8:35 AM CDT) ABO Rh A Positive Zach, indirect Negative [facility] Blood 11/10/2024 8:35 AM CDT 11/10/2024 9:58 AM CDT Narrative [facility] - 11/10/2024 10:47 AM CDT Has the patient had Daratumumab or Isatuximab in the past 6 months?->Unknown Lee Elena MD LAB BLOOD BANK TEST ORDER ALINE Final Result Performing Organization Address [facility] Co de Phone Number [facility] [place] [address] * Prepare RBC: 1 Units (11/10/2024 8:10 AM CDT) [facility] Product code [id number] Unit Number [id number] [facility] Product Blood Type APOS [facility] Dispense Status PRESUMED TRANSFUSED [facility] Blood 11/10/2024 8:10 AM CDT 11/10/2024 8:10 AM CDT Narrative [facility] - 11/11/2024 12:55 AM CDT Are special requirements needed? (All products are leukoreduced and CMV- safe)- >No Date required:-[id number] LRRBC # of [id number] Reasons:-Hgb <7 g/dL} Lee Elena MD BLOOD BANK PRODUCT ORDERA BLES Final Result Performing Organization Address City/[facility]/ZIP Co de Phone Number [facility] [place] [address] * POCT glucose (11/10/2024 7:52 AM CDT) [facility] Glucose, POC 112 70 - 199 mg/dL Blood 11/10/2024 7:52 AM CDT 11/10/2024 7:52 AM CDT Lee Elena MD LAB POCT ORDERABLES - [place] [address] * eGFR (11/10/2024 5:42 AM CDT) [facility] eGFR >90 >=60 mL/min/1. 73 m2 Comment: [...] ORDERABLES Krystyna l Result Performing Organization Address City/[facility]/ZIP Co de Phone Number [facility] [place] [address] * (ABNORMAL) Hemoglobin and hematocrit (11/10/2024 5:42 AM CDT) Hgb 6.8(L) 11.9 - 15.5 g/dL Hct 19.8(L) 35.6 - 45.5 % [facility] Blood 11/10/2024 5:42 AM CDT 11/10/2024 6:16 AM CDT Lee Elena MD LAB BLOOD ORDERABLES Krystyna l Result [facility] [place] [address] * Phosphorus (11/10/2024 5:42 AM CDT) Phosphorus, pl 3.6 2.3 - 4.5 mg/dL Blood 11/10/2024 5:42 AM CDT 11/10/2024 6:22 AM CDT Lee Elena MD LAB BLOOD ORDERABLES Krystyna l Result Performing Organization Address City/[facility]/ZIP Co de Phone Number [facility] [place] [address] * Magnesium (11/10/2024 5:42 AM CDT) [facility] Magnesium 2.1 1.4 - 2.5 mg/dL Blood 11/10/2024 5:42 AM CDT 11/10/2024 6:22 AM CDT Lee Elena MD LAB BLOOD ORDERABLES Krystyna l Result Performing Organization Address [facility]/RUST de Phone Number [facility] [place] [address] * (ABNORMAL) Basic metabolic panel (11/10/2024 5:42 AM CDT) [facility] Sodium 134(L) 135 - 145 mmol/L Potassium, pl 4.5 3.3 - 4.9 mmol/L [facility] Chloride 106 97 - 110 mmol/L [facility] CO2 21(L) 22 - 32 mmol/L [facility] Anion gap 7 2 - 15 mmol/L [facility] BUN 7 6 - 25 mg/dL [facility] Creatinine 0.36(L) 0.60 - 1.10 mg/dL [facility] Glucose 98 70 - 199 mg/dL [facility] Comment: Interpretive Data Fasting glucose >/= [...] 2022. Calcium 7.7(L) 8.5 - 10.3 mg/dL [facility] Blood 11/10/2024 5:42 AM CDT 11/10/2024 6:22 AM CDT Lee Elena MD LAB BLOOD ORDERABLES Krystyna l Result Performing Organization Address City/[facility] Co de Phone Number [facility] [place] [address] * POCT glucose (11/10/2024 4:15 AM CDT) Glucose, POC 112 70 - 199 mg/dL Blood 11/10/2024 4:15 AM CDT 11/10/2024 4:15 AM CDT Lee Elena MD LAB POCT ORDERABLES - DEV ICE Final Result Performing Organization Address City/[facility] Co de Phone Number [facility] [place] [address] * POCT glucose (11/09/2024 10:17 PM CDT) Glucose, POC 119 70 - 199 mg/dL Blood 11/09/2024 10:1 7 PM CDT 11/09/2024 10:17 PM CDT Lee Elena MD LAB POCT ORDERABLES - DEV ICE Final Result Performing Organization Address City/[facility] Co de Phone Number [facility] [place] [address] * eGFR (11/09/2024 10:09 PM CDT) eGFR [...] MD LAB BLOOD ORDERABLES Krystyna meyers Result [facility] [place] [address] * (ABNORMAL) Differential, auto (11/09/2024 10:09 PM CDT) Neutrophil abs 4.11 1.50 - 6.50 K/cumm Imm gran abs 0.03 0.00 - 0.10 K/cumm [facility] Lymphocyte abs 0.51(L) 0.80 - 3.30 K/cumm [facility] Monocyte abs 0.26 0.20 - 0.80 K/cumm [facility] Eosinophil abs 0.01 0.00 - 0.50 K/cumm [facility] Basophil abs 0.01 0.00 - 0.10 K/cumm [facility] Neutrophil pct 83.4 % [facility] Comment: Interpretive Data Percent cell count reference ranges are not reported, since discordance with absolute values may lead to misinterpretation of CBC data. Current Interpretive Data was last revised on 2017. Imm gran pct 0.6 % [facility] Comment: Interpretive Data Percent cell count reference ranges are not reported, since discordance with absolute values may lead to misinterpretation of CBC data. Current Interpretive Data was last revised on 2017. Lymphocyte pct 10.3 % [facility] Comment: Interpretive Data Percent cell count reference ranges are not reported, since discordance with absolute values may lead to misinterpretation of CBC data. Current Interpretive Data was last revised on 2017. Monocyte pct 5.3 % [facility] Comment: Interpretive Data Percent cell count reference ranges are not reported, since discordance with absolute values may lead to misinterpretation of CBC data. Current Interpretive Data was last revised on 2017. Eosinophil pct 0.2 % [facility] Comment: Interpretive Data Percent cell count reference ranges are not reported, since discordance with absolute values may lead to misinterpretation of CBC data. Current Interpretive Data was last revised on 2017. Basophil pct 0.2 % [facility] Comment: Interpretive Data Percent cell count reference ranges are not reported, since discordance with absolute values may lead to misinterpretation of CBC data. Current Interpretive Data was last revised on 2017. Blood 11/09/2024 10:0 9 PM CDT 11/09/2024 10:29 PM CDT Lee Elena MD LAB BLOOD ORDERABLES Krystyna meyers Result [facility] [place] [address] * (ABNORMAL) CBC with auto differential (11/09/2024 10:09 PM CDT) WBC 4.93 3.80 - 9.90 K/cumm Hgb 7.0(L) 11.9 - 15.5 g/dL [facility] Hct 20.4(L) 35.6 - 45.5 % [facility] Plt 100(L) 150 - 400 K/cumm [facility] MPV 10.9 9.1 - 12.3 fL [facility] RBC 2.02(L) 3.90 - 5.20 M/cumm [facility] MCV 101.0(H) 81.3 - 96.4 fL [facility] MCH 34.7(H) 27.1 - 33.3 pg [facility] MCHC 34.3 32.3 - 35.7 g/dL [facility] RDW CV 17.1(H) 11.1 - 14.9 % [facility] RDW SD 61.7(H) 35.7 - 48.1 fL [facility] NRBC abs 0.02(H) 0.00 - 0.01 K/cumm [facility] Blood 11/09/2024 10:0 9 PM CDT 11/09/2024 10:29 PM CDT Lee Elena MD LAB BLOOD ORDERABLES Krystyna l Result Performing Organization Address [facility]/[place] de Phone Number [facility] [place] [address] * (ABNORMAL) Protime-INR (11/09/2024 10:09 PM CDT) Pathologist [facility] [place] PT 17.4(H) 9.7 - 13.0 sec INR 1.60(H) 0.90 - 1.20 [facility] Comment: Interpretive data Oral anticoagulant therapeutic [...] ORDERABLES Krystyna l Result Performing Organization Address [facility]/[place] de Phone Number [facility] [place] [address] * (ABNORMAL) Phosphorus (11/09/2024 10:09 PM CDT) Phosphorus, pl 2.2(L) 2.3 - 4.5 mg/dL Blood 11/09/2024 10:0 9 PM CDT 11/09/2024 10:28 PM CDT Lee Elena MD LAB BLOOD ORDERABLES Krystyna l Result Performing Organization Address City/[facility]/ZIP Co de Phone Number [facility] [place] [address] * Magnesium (11/09/2024 10:09 PM CDT) [facility] Magnesium 1.5 1.4 - 2.5 mg/dL Blood 11/09/2024 10:0 9 PM CDT 11/09/2024 10:28 PM CDT Result [facility] Lee Elena MD LAB BLOOD ORDERABLES Krystyna l Result Performing Organization Address [facility]/[place] de Phone Number [facility] [place] [address] * (ABNORMAL) Hepatic function panel (11/09/2024 10:09 PM CDT) [facility] Bilirubin, total 1.2 0.1 - 1.2 mg/dL Bilirubin, direct 0.9(H) 0.1 - 0.3 mg/dL [facility] Protein, pl 4.5(L) 6.5 - 8.5 g/dL [facility] Albumin 1.8(L) 3.5 - 5.0 g/dL [facility] Alk phos 102 40 - 130 Units/L [facility] ALT 110(H) 7 - 45 Units/L [facility] AST 121(H) 10 - 45 Units/L [facility] Blood 11/09/2024 10:0 9 PM CDT 11/09/2024 10:28 PM CDT Lee Elena MD LAB BLOOD ORDERABLES Krystyna l Result [facility] [place] [address] * (ABNORMAL) Basic metabolic panel (11/09/2024 10:09 PM CDT) Sodium 137 135 - 145 mmol/L Potassium, pl 3.3 3.3 - 4.9 mmol/L [facility] Chloride 104 97 - 110 mmol/L [facility] CO2 23 22 - 32 mmol/L [facility] Anion gap 10 2 - 15 mmol/L [facility] BUN 8 6 - 25 mg/dL [facility] Creatinine 0.38(L) 0.60 - 1.10 mg/dL [facility] Glucose 102 70 - 199 mg/dL [facility] Comment: Interpretive Data Fasting glucose >/= [...] 2022. Calcium 8.0(L) 8.5 - 10.3 mg/dL [facility] Blood 11/09/2024 10:0 9 PM CDT 11/09/2024 10:28 PM CDT us Lee Elena MD LAB BLOOD ORDERABLES Krystyna l Result [facility] [place] [address] * POCT glucose (11/09/2024 6:05 PM CDT) Glucose, POC 101 70 - 199 mg/dL Blood 11/09/2024 6:05 PM CDT 11/09/2024 6:05 PM CDT Lee Elena MD LAB POCT ORDERABLES - DEV ICE Final Result Performing Organization Address [facility] Co de Phone Number [facility] [place] [address] * POCT glucose (11/09/2024 5:11 PM CDT) Glucose, POC 118 70 - 199 mg/dL Blood 11/09/2024 5:11 PM CDT 11/09/2024 5:11 PM CDT Lee Elena MD LAB POCT ORDERABLES - DEV ICE Final Result Performing Organization Address [facility]/[place] de Phone Number [facility] [place] [address] * Lactate (11/09/2024 1:20 PM CDT) [facility] Lactate 2.0 0.7 - 2.0 mmol/L Blood 11/09/2024 1:20 PM CDT 11/09/2024 2:24 PM CDT Lee Elena MD LAB BLOOD ORDERABLES Krystyna l Result Performing Organization Address [facility] Co de Phone Number [facility] [place] [address] * eGFR (11/09/2024 1:20 PM CDT) Pathologist [facility] [place] eGFR >90 >=60 mL/min/1. 73 m2 Comment: [...] MD LAB BLOOD ORDERABLES Krystyna meyers Result [facility] Department [place] [address] * (ABNORMAL) Differential, auto (11/09/2024 1:20 PM CDT) Pathologist [facility] Neutrophil abs 4.77 1.50 - 6.50 K/cumm Imm gran abs 0.03 0.00 - 0.10 K/cumm [facility] Lymphocyte abs 0.25(L) 0.80 - 3.30 K/cumm [facility] Monocyte abs 0.19(L) 0.20 - 0.80 K/cumm [facility] Eosinophil abs 0.00 0.00 - 0.50 K/cumm [facility] Basophil abs 0.00 0.00 - 0.10 K/cumm [facility] Neutrophil pct 91.0 % [facility] Comment: Interpretive Data Percent cell count reference ranges are not reported, since discordance with absolute values may lead to misinterpretation of CBC data. Current Interpretive Data was last revised on 2017. Imm gran pct 0.6 % [facility] Comment: Interpretive Data Percent cell count reference ranges are not reported, since discordance with absolute values may lead to misinterpretation of CBC data. Current Interpretive Data was last revised on 2017. Lymphocyte pct 4.8 % [facility] Comment: Interpretive Data Percent cell count reference ranges are not reported, since discordance with absolute values may lead to misinterpretation of CBC data. Current Interpretive Data was last revised on 2017. Monocyte pct 3.6 % [facility] Comment: Interpretive Data Percent cell count reference ranges are not reported, since discordance with absolute values may lead to misinterpretation of CBC data. Current Interpretive Data was last revised on 2017. Eosinophil pct 0.0 % [facility] Comment: Interpretive Data Percent cell count reference ranges are not reported, since discordance with absolute values may lead to misinterpretation of CBC data. Current Interpretive Data was last revised on 2017. Basophil pct 0.0 % [facility] Comment: Interpretive Data Percent cell count reference ranges are not reported, since discordance with absolute values may lead to misinterpretation of CBC data. Current Interpretive Data was last revised on 2017. Blood 11/09/2024 1:20 PM CDT 11/09/2024 2:25 PM CDT us Lee Elena MD LAB BLOOD ORDERABLES Krystyna meyers Result [facility] [place] [address] * (ABNORMAL) CBC with auto differential (11/09/2024 1:20 PM CDT) WBC 5.24 3.80 - 9.90 K/cumm Hgb 7.8(L) 11.9 - 15.5 g/dL [facility] Hct 22.3(L) 35.6 - 45.5 % [facility] Plt 120(L) 150 - 400 K/cumm [facility] MPV 11.2 9.1 - 12.3 fL [facility] RBC 2.24(L) 3.90 - 5.20 M/cumm [facility] MCV 99.6(H) 81.3 - 96.4 fL [facility] MCH 34.8(H) 27.1 - 33.3 pg [facility] MCHC 35.0 32.3 - 35.7 g/dL [facility] RDW CV 16.8(H) 11.1 - 14.9 % [facility] RDW SD 59.7(H) 35.7 - 48.1 fL [facility] NRBC abs 0.00 0.00 - 0.01 K/cumm [facility] Blood 11/09/2024 1:20 PM CDT 11/09/2024 2:25 PM CDT Lee Elena MD LAB BLOOD ORDERABLES Krystyna l Result [facility] [place] [address] * (ABNORMAL) Phosphorus (11/09/2024 1:20 PM CDT) Phosphorus, pl 2.1(L) 2.3 - 4.5 mg/dL Blood 11/09/2024 1:20 PM CDT 11/09/2024 2:25 PM CDT Lee Elena MD LAB BLOOD ORDERABLES Krystyna l Result Performing Organization Address City/[facility] Co de Phone Number [facility] [place] [address] * Magnesium (11/09/2024 1:20 PM CDT) Magnesium 1.8 1.4 - 2.5 mg/dL Blood 11/09/2024 1:20 PM CDT 11/09/2024 2:25 PM CDT Lee Elena MD LAB BLOOD ORDERABLES Krystyna l Result [facility] [place] [address] * (ABNORMAL) Hepatic function panel (11/09/2024 1:20 PM CDT) [facility] Bilirubin, total 1.7(H) 0.1 - 1.2 mg/dL Bilirubin, direct 1.2(H) 0.1 - 0.3 mg/dL [facility] Protein, pl 5.2(L) 6.5 - 8.5 g/dL [facility] Albumin 2.2(L) 3.5 - 5.0 g/dL [facility] Alk phos 125 40 - 130 Units/L [facility] ALT 152(H) 7 - 45 Units/L [facility] AST 173(H) 10 - 45 Units/L [facility] Blood 11/09/2024 1:20 PM CDT 11/09/2024 2:25 PM CDT us Lee Elena MD LAB BLOOD ORDERABLES Krystyna l Result [facility] [place] [address] * (ABNORMAL) Basic metabolic panel (11/09/2024 1:20 PM CDT) [facility] Sodium 134(L) 135 - 145 mmol/L Potassium, pl 4.4 3.3 - 4.9 mmol/L [facility] Chloride 105 97 - 110 mmol/L [facility] Comment:Repeated and Verifie d CO2 22 22 - 32 mmol/L [facility] Anion gap 8 2 - 15 mmol/L [facility] BUN 8 6 - 25 mg/dL [facility] Creatinine 0.39(L) 0.60 - 1.10 mg/dL [facility] Glucose 98 70 - 199 mg/dL [facility] Comment: Interpretive Data Fasting glucose >/= [...] 2022. Calcium 9.6 8.5 - 10.3 mg/dL [facility] Blood 11/09/2024 1:20 PM CDT 11/09/2024 2:25 PM CDT Lee Elena MD LAB BLOOD ORDERABLES Krystyna l Result Performing Organization Address City/[facility] Co de Phone Number [facility] [place] [address] * POCT glucose (11/09/2024 11:33 AM CDT) Glucose, POC 115 70 - 199 mg/dL Blood 11/09/2024 11:3 3 AM CDT 11/09/2024 11:33 AM CDT Lee Elena MD LAB POCT ORDERABLES - DEV ICE Final Result Performing Organization Address [facility] Co de Phone Number [facility] [place] [address] * POCT glucose (11/09/2024 7:00 AM CDT) Glucose, POC 146 70 - 199 mg/dL Blood 11/09/2024 7:00 AM CDT 11/09/2024 7:00 AM CDT Lee Elena MD LAB POCT ORDERABLES - DEV ICE Final Result Performing Organization Address City/[facility] Co de Phone Number [facility] [place] [address] * C. difficile testing Stool (11/09/2024 5:53 AM CDT) [facility] Positive Negative Toxin Result Negative Negative [facility] C. diff result Negative, free toxin. Negative, free toxin [facility] C. diff interp GDH+/toxin- results almost never represent true C. difficile infection (CDI). Results may represent colonization with C. difficile without CDI, detection of a bacteria other than toxigenic C. difficile, or a false negative toxin assay. If there is a high index of suspicion for CDI, additional testing by PCR is available upon request. [facility] Stool 11/09/2024 5:53 AM CDT 11/09/2024 8:03 AM CDT Lee Elena MD LAB MICROBIOLOGY - GENERA L ORDERABLES Final Result Performing Organization Address City/[facility]/ZIP Co de Phone Number [facility] [place] [address] * POCT glucose (11/09/2024 4:41 AM CDT) Glucose, POC 102 70 - 199 mg/dL Blood 11/09/2024 4:41 AM CDT 11/09/2024 4:41 AM CDT Lee Elena MD LAB POCT ORDERABLES - DEV ICE Final Result Performing Organization Address City/[facility]/ZIP Co de Phone Number [facility] [place] [address] * Influenza A/B, RSV, and COVID-19 PCR Nasopharyngeal (11/09/2024 3:40 AM CDT) [facility] COVID-19 RNA Negative Negative [facility] Influenza A RNA Negative Negative [facility] Influenza B RNA Negative Negative [facility] RSV RNA Negative Negative [facility] Comment: Interpretive data: Testing performed by [facility] ([phone]). This test is performed using the [employer] Xpress CoV-2/Flu/RSV plus assay. This is a multiplex, real-time reverse transcriptase PCR assay intended for the qualitative detection of nucleic acid from SARS-CoV-2, influenza A, influenza B, and respiratory syncytial virus. This assay has been cleared by the [place] Food and Drug administration. The performance characteristics have been verified by the [facility]. Results must be considered in the clinical context, and a negative result does not rule out infection. Interpretive Data last revised 2023 Nasopharyngeal 11/09/2024 3: 40 AM CDT 11/09/2024 4:57 AM CDT Narrative [facility] 11[facility] 5[facility]52 AM CDT Is the Patient experiencing symptoms consistent with COVID?->No Lee Elena MD LAB MICROBIOLOGY - GENERA L ORDERABLES Final Result Performing Organization Address City/[facility]/ZIP Co de Phone Number [facility] [place] [address] [facility] * (ABNORMAL) Hemoglobin and hematocrit (11/09/2024 3:40 AM CDT) Pathologist [facility] [place] Hgb 7.7(L) 11.9 - 15.5 g/dL Hct 20.9(L) 35.6 - 45.5 % [facility] Blood 11/09/2024 3:40 AM CDT 11/09/2024 3:50 AM CDT Lee Elena MD LAB BLOOD ORDERABLES Krystyna l Result Performing Organization Address City/[facility] Co de Phone Number [facility] [place] [address] * XR Chest 1 View (11/09/2024 2:18 [...] ur Yellow Yellow Clarity, ur Cloudy(A) Clear [facility] Specific gravity, ur 1.018 1.003 - 1.030 [facility] pH, urine 6.0 [facility] Comment: Interpretive Data U rine pH is affected by diet, medications, systemic acid-base disturbances, and renal tubular function. pH may affect urinary stone formation. For example, urine pH below 6.0 may help reduce the tendency for calcium phosphate stones and pH greater than 6.0 may reduce the tendency for uric acid stone formation. Source: [employer] Current Interpretive Data was last revised on 2017 Protein, ur ql Trace Negative [facility] Glucose, ur ql Negative Negative [facility] Ketones, ur Negative Negative [facility] Bilirubin, ur Negative Negative [facility] Blood, ur Negative Negative [facility] Urobilinogen, ur <2.0 <2.0 mg/dL [facility] Nitrite, ur Positive(A) Negative [facility] Leukocyte esterase, ur 1+(A) Negative [facility] UA reflex comment Reflex to microscopic UA will be performed. [facility] Urine, in and out catheter 11/09/2024 2:18 AM CDT 11/09/2024 3:31 AM CDT Lee Elena MD LAB MICROBIOLOGY - GENERA L ORDERABLES Final Result Performing Organization Address [facility] de Phone Number [facility] [place] [address] * (ABNORMAL) Urinalysis, microscopic only (11/09/2024 2:18 AM CDT) WBC, ur 21-50(A) 0 - 5 /HPF RBC, ur 0-2 0 - 2 /HPF [facility] Epithelial cells, renal, ur 1-5(A) 0 - 0 /HPF [facility] Bacteria, ur 2+(A) [facility] Mucous, ur Present(A) [facility] Culture Reflex Comment Reflex to urine culture will be performed. [facility] Urine, in and out catheter 11/09/2024 2:18 AM CDT 11/09/2024 3:31 AM CDT Lee Elena MD LAB URINE ORDERABLES Krystyna l Result Performing Organization Address [facility] de Phone Number [facility] [place] [address] * (ABNORMAL) Urine culture Urine, in and out catheter (11/09/2024 2:18 AM CDT) Report Final Report: Greater than or equal to 100,000 colonies/mL of Klebsiella pneumoniae Plus growth of clinically insignificant bacterial jemal. (.) Organism KLEBSIELLA PNEUMONIAE [facility] Organism PLUS GROWTH OF CLINICALLY INSIGNIFICANT JEMAL. [facility] Urine, in and out catheter 11/09/2024 2:18 AM CDT 11/09/2024 5:03 AM CDT Narrative [facility] - 11/11/2024 10:29 AM CDT Urine culture reflexed based upon urinalysis results. Testing performed by [facility] ([phone]) Organism Antibiotic Method Susceptibility Klebsiella pneumoniae Ampicillin [...] MICROBIOLOGY - GENERA L ORDERABLES Final Result [facility] [place] [address] * ECG 12 lead (11/09/2024 1:56 AM CDT) Pathologist [facility] [place] Ventricular Rate EKG/Min 121 BPM [facility] Atrial Rate 121 BPM [facility] [place]-Interval (MSEC) 86 ms [facility] QRS-Interval (MSEC) 72 ms [facility] QT-Interval (MSEC) 334 ms [facility] QTc 474 ms [facility] P [place] 19 degrees [facility] R [place] 22 degrees [facility] T [place] -78 degrees [facility] Diagnosis Sinus tachycardia with short [place] Low voltage QRS Possible Inferior infarct , age undetermined ST & T wave abnormality, consider anterior ischemia Abnormal ECG When compared with ECG of 08-NOV-2024 05:56, [place] interval has decreased Borderline criteria for Inferior infarct are now Present ST now depressed in Anterior leads Confirmed by SHALINI RODRIGUEZ M.D ([id number]) on 11/09/2024 10:00:29 PM [facility] 11/09/2024 1:56 AM CDT 11/09/2024 10:00 PM CDT us Ash Valencia MD ECG ORDERABLES Final Result [facility] * (ABNORMAL) Blood culture Blood (11/09/2024 1:39 AM CDT) Direct Specimen Exam Stain: Gram Positive Cocci in clusters Time to culture positivity (aerobic media): 9.4 hours Time to culture positivity (anaerobic media): 14.3 hours Report Final Report: Staphylococcus aureus For susceptibility results, refer to accession number [id number] on the blood culture from 11/09/2024 (.) [facility] Organism STAPHYLOCOCCUS AUREUS [facility] Blood 11/09/2024 1:39 AM CDT 11/09/2024 2:13 AM CDT Narrative [facility] - 11/12/2024 10:31 AM CDT From a [...] performance characteristics have been verified by the [facility]. For questions about this culture, contact the Microbiology Laboratory at [phone]. Interpretive data was last revised on 24. us Lee Elena MD LAB MICROBIOLOGY - GENERA L ORDERABLES Final Result Performing Organization Address City/[facility]/ZIP Co de Phone Number [facility] [place] [address] * (ABNORMAL) Lactate (11/09/2024 1:30 AM CDT) Lactate 2.7(H) 0.7 - 2.0 mmol/L Blood 11/09/2024 1:30 AM CDT 11/09/2024 1:47 AM CDT us Lee Elena MD LAB BLOOD ORDERABLES Krystyna l Result [facility] Department [place] [address] * (ABNORMAL) Blood culture Blood (11/09/2024 1:30 AM CDT) Direct Specimen Exam Stain: Gram Positive Cocci in clusters Time to culture positivity (aerobic media): 8.5 hours Time to culture positivity (anaerobic media): 12.9 hours Notification of: Gram Positive Cocci in clusters called to and read back by: Lee Elena MD [phone] on 11/09/2024 12:01:28 by: Chula Andujar MLS Direct Specimen Exam Molecular Analysis: Methicillin-suscep tible Staphylococcus aureus (MSSA) detected by the [facility] BCID-GP panel. This test does not exclude the possibility of a mixed bacterial infection. Notification of: Methicillin-suscep tible Staphylococcus aureus called to and read back by: Dr. Ash Valencia [phone] on 11/09/2024 13:55:26 by: Ivanna Cruz [facility] Report Final Report: Staphylococcus aureus Methicillin susceptible (MSSA) by penicillin binding protein 2a (PBP2a) testing. (.) [facility] Organism STAPHYLOCOCCUS AUREUS [facility] Blood 11/09/2024 1:30 AM CDT 11/09/2024 2:13 AM CDT Narrative [facility] - 11/12/2024 10:17 AM CDT Collection->Peripheral 1. [...] performance characteristics have been verified by the [facility]. For questions about this culture, contact the Microbiology Laboratory at [phone]. Interpretive data was last revised on 24. [...] MICROBIOLOGY - GENERA L ORDERABLES Final Result [facility] Department [place] [address] * (ABNORMAL) Protime-INR (11/09/2024 1:30 AM CDT) [facility] PT 18.4(H) 9.7 - 13.0 sec INR 1.69(H) 0.90 - 1.20 [facility] Comment: Interpretive data Oral anticoagulant therapeutic ranges: Venous thromboembolism prophylaxis or treatment: 2.0-3.0 CARDIOLOGY Standard range: 2.0-3.0 High-intensity range: 2.5-3.5 Refer to indication-specific guidelines for appropriate target ranges for prosthetic heart valve replacement. Current interpretive data was last revised on 2019. Blood 11/09/2024 1:30 AM CDT 11/09/2024 1:44 AM CDT us Juliano Arredondo MD LAB BLOOD ORDERABLE S Final Result [facility] [place] [address] * (ABNORMAL) CBC without differential (11/09/2024 1:30 AM CDT) WBC 5.79 3.80 - 9.90 K/cumm Hgb 7.7(L) 11.9 - 15.5 g/dL [facility] Comment:FIORDALIZA RODGERS RN Large delta with no apparant cause, correlate with clinical context and redraw if indicated. This result has been called to FIORDALIZA RODGERS RN by [email or web address] on 11/09/2024 02:26:21. Hct 21.2(L) 35.6 - 45.5 % [facility] Plt 152 150 - 400 K/cumm [facility] MPV 10.4 9.1 - 12.3 fL [facility] RBC 2.22(L) 3.90 - 5.20 M/cumm [facility] MCV 95.5 81.3 - 96.4 fL [facility] MCH 34.7(H) 27.1 - 33.3 pg [facility] MCHC 36.3(H) 32.3 - 35.7 g/dL [facility] RDW CV 16.7(H) 11.1 - 14.9 % [facility] RDW SD 57.2(H) 35.7 - 48.1 fL [facility] NRBC abs 0.00 0.00 - 0.01 K/cumm [facility] Blood 11/09/2024 1:30 AM CDT 11/09/2024 1:59 AM CDT Lee Elena MD LAB BLOOD ORDERABLES Krystyna l Result [facility] [place] [address] * POCT glucose (11/08/2024 11:56 PM CDT) Glucose, POC 120 70 - 199 mg/dL Blood 11/08/2024 11:5 6 PM CDT 11/08/2024 11:56 PM CDT Lee Elena MD LAB POCT ORDERABLES - DEV ICE Final Result Performing Organization Address [facility] Co de Phone Number [facility] Department [place] [address] * eGFR (11/08/2024 10:32 PM CDT) eGFR [...] ORDERABLE S Final Result Performing Organization Address City/[facility]/ZIP Co de Phone Number [facility] [place] [address] * (ABNORMAL) Phosphorus (11/08/2024 10:32 PM CDT) Phosphorus, pl 1.7(L) 2.3 - 4.5 mg/dL Blood 11/08/2024 10:3 2 PM CDT 11/08/2024 11:39 PM CDT Juliano Arredondo MD LAB BLOOD ORDERABLE S Final Result Performing Organization Address [facility] Co de Phone Number [facility] [place] [address] * Magnesium (11/08/2024 10:32 PM CDT) Magnesium 1.7 1.4 - 2.5 mg/dL Blood 11/08/2024 10:3 2 PM CDT 11/08/2024 11:39 PM CDT Juliano Arredondo MD LAB BLOOD ORDERABLE S Final Result Performing Organization Address City/[facility] Co de Phone Number [facility] [place] [address] * (ABNORMAL) Hepatic function panel (11/08/2024 10:32 PM CDT) Bilirubin, total 1.7(H) 0.1 - 1.2 mg/dL Bilirubin, direct 1.4(H) 0.1 - 0.3 mg/dL [facility] Protein, pl 5.1(L) 6.5 - 8.5 g/dL [facility] Albumin 2.2(L) 3.5 - 5.0 g/dL [facility] Alk phos 138(H) 40 - 130 Units/L [facility] ALT 175(H) 7 - 45 Units/L [facility] AST 253(H) 10 - 45 Units/L [facility] Blood 11/08/2024 10:3 2 PM CDT 11/08/2024 11:39 PM CDT us Lee Elena MD LAB BLOOD ORDERABLES Krystyna l Result [facility] Department [place] [address] * (ABNORMAL) Basic metabolic panel (11/08/2024 10:32 PM CDT) Sodium 130(L) 135 - 145 mmol/L Potassium, pl 2.8(L) 3.3 - 4.9 mmol/L [facility] Chloride 93(L) 97 - 110 mmol/L [facility] CO2 26 22 - 32 mmol/L [facility] Anion gap 11 2 - 15 mmol/L [facility] BUN 11 6 - 25 mg/dL [facility] Creatinine 0.45(L) 0.60 - 1.10 mg/dL [facility] Glucose 106 70 - 199 mg/dL [facility] Comment: Interpretive Data Fasting glucose >/= [...] 2022. Calcium 7.6(L) 8.5 - 10.3 mg/dL [facility] Blood 11/08/2024 10:3 2 PM CDT 11/08/2024 11:39 PM CDT us Juliano Arredondo MD LAB BLOOD ORDERABLE S Final Result Performing Organization Address [facility] Co de Phone Number [facility] [place] [address] * POCT glucose (11/08/2024 7:33 PM CDT) Glucose, POC 118 70 - 199 mg/dL Blood 11/08/2024 7:33 PM CDT 11/08/2024 7:33 PM CDT Lee Elena MD LAB POCT ORDERABLES - DEV ICE Final Result Performing Organization Address [facility]/[place] de Phone Number [facility] [place] [address] * POCT glucose (11/08/2024 4:40 PM CDT) Glucose, POC 99 70 - 199 mg/dL Blood 11/08/2024 4:40 PM CDT 11/08/2024 4:40 PM CDT Lee Elena MD LAB POCT ORDERABLES - DEV ICE Final Result Performing Organization Address [facility] Co de Phone Number [facility] [place] [address] * POCT glucose (11/08/2024 7:51 AM CDT) Glucose, POC 97 70 - 199 mg/dL Blood 11/08/2024 7:51 AM CDT 11/08/2024 7:51 AM CDT eLe Elena MD LAB POCT ORDERABLES - DEV ICE Final Result Performing Organization Address [facility] Co de Phone Number [facility] [place] [address] * ECG 12 lead (11/08/2024 5:56 AM CDT) [facility] Ventricular Rate EKG/Min 129 BPM [facility] Atrial Rate 129 BPM [facility] [place]-Interval (MSEC) 126 ms [facility] QRS-Interval (MSEC) 72 ms [facility] QT-Interval (MSEC) 294 ms [facility] QTc 430 ms [facility] P [place] 47 degrees [facility] R [place] 40 degrees [facility] T [place] -48 degrees [facility] Diagnosis Sinus tachycardia T wave abnormality, consider anterior ischemia Abnormal ECG When compared with ECG of 06-NOV-2024 04:42, No significant change was found Confirmed by SHALINI RODRIGUEZ M.D ([id number]) on 11/08/2024 4:40:32 PM [facility] 11/08/2024 5:56 AM CDT 11/08/2024 4:40 PM CDT Juliano Arredondo MD ECG ORDERABLES Fin al Result [facility] * POCT glucose (11/08/2024 4:16 AM CDT) Pathologist [facility] Glucose, POC 102 70 - 199 mg/dL Blood 11/08/2024 4:16 AM CDT 11/08/2024 4:16 AM CDT Lee Elena MD LAB POCT ORDERABLES - DEV ICE Final Result [facility] Department [place] [address] * (ABNORMAL) Differential, auto (11/08/2024 3:45 AM CDT) Pathologist [facility] Neutrophil abs 2.96 1.50 - 6.50 K/cumm Imm gran abs 0.01 0.00 - 0.10 K/cumm [facility] Lymphocyte abs 0.33(L) 0.80 - 3.30 K/cumm [facility] Monocyte abs 0.29 0.20 - 0.80 K/cumm [facility] Eosinophil abs 0.01 0.00 - 0.50 K/cumm [facility] Basophil abs 0.01 0.00 - 0.10 K/cumm [facility] Neutrophil pct 82.0 % [facility] Comment: Interpretive Data Percent cell count reference ranges are not reported, since discordance with absolute values may lead to misinterpretation of CBC data. Current Interpretive Data was last revised on 2017. Imm gran pct 0.3 % [facility] Comment: Interpretive Data Percent cell count reference ranges are not reported, since discordance with absolute values may lead to misinterpretation of CBC data. Current Interpretive Data was last revised on 2017. Lymphocyte pct 9.1 % [facility] Comment: Interpretive Data Percent cell count reference ranges are not reported, since discordance with absolute values may lead to misinterpretation of CBC data. Current Interpretive Data was last revised on 2017. Monocyte pct 8.0 % [facility] Comment: Interpretive Data Percent cell count reference ranges are not reported, since discordance with absolute values may lead to misinterpretation of CBC data. Current Interpretive Data was last revised on 2017. Eosinophil pct 0.3 % [facility] Comment: Interpretive Data Percent cell count reference ranges are not reported, since discordance with absolute values may lead to misinterpretation of CBC data. Current Interpretive Data was last revised on 2017. Basophil pct 0.3 % [facility] Comment: Interpretive Data Percent cell count reference ranges are not reported, since discordance with absolute values may lead to misinterpretation of CBC data. Current Interpretive Data was last revised on 2017. Blood 11/08/2024 3:45 AM CDT 11/08/2024 4:06 AM CDT us Lee Elena MD LAB BLOOD ORDERABLES Krystyna meyers Result [facility] [place] [address] * (ABNORMAL) Protime-INR (11/08/2024 3:45 AM CDT) Pathologist [facility] PT 14.7(H) 9.7 - 13.0 sec INR 1.35(H) 0.90 - 1.20 [facility] Comment: Interpretive data Oral anticoagulant therapeutic ranges: Venous thromboembolism prophylaxis or treatment: 2.0-3.0 CARDIOLOGY Standard range: 2.0-3.0 High-intensity range: 2.5-3.5 Refer to indication-specific guidelines for appropriate target ranges for prosthetic heart valve replacement. Current interpretive data was last revised on 2019. Blood 11/08/2024 3:45 AM CDT 11/08/2024 4:08 AM CDT us Juliano Arredondo MD LAB BLOOD ORDERABLE S Final Result [facility] [place] [address] * (ABNORMAL) CBC without differential (11/08/2024 3:45 AM CDT) Pathologist [facility] WBC 3.60(L) 3.80 - 9.90 K/cumm Hgb 11.0(L) 11.9 - 15.5 g/dL [facility] Hct 32.0(L) 35.6 - 45.5 % [facility] Plt 192 150 - 400 K/cumm [facility] MPV 11.0 9.1 - 12.3 fL [facility] RBC 3.19(L) 3.90 - 5.20 M/cumm [facility] MCV 100.3(H) 81.3 - 96.4 fL [facility] MCH 34.5(H) 27.1 - 33.3 pg [facility] MCHC 34.4 32.3 - 35.7 g/dL [facility] RDW CV 16.6(H) 11.1 - 14.9 % [facility] RDW SD 59.6(H) 35.7 - 48.1 fL [facility] NRBC abs 0.02(H) 0.00 - 0.01 K/cumm [facility] Blood 11/08/2024 3:45 AM CDT 11/08/2024 4:02 AM CDT Juliano Arredondo MD LAB BLOOD ORDERABLE S Final Result Performing Organization Address City/[facility] Co de Phone Number [facility] [place] [address] * POCT glucose (11/08/2024 1:29 AM CDT) Glucose, POC 110 70 - 199 mg/dL Blood 11/08/2024 1:29 AM CDT 11/08/2024 1:29 AM CDT Lee Elena MD LAB POCT ORDERABLES - DEV ICE Final Result Performing Organization Address City/[facility] Co de Phone Number [facility] [place] [address] * eGFR (11/07/2024 9:52 PM CDT) eGFR [...] ORDERABLE S Final Result Performing Organization Address [facility] Co de Phone Number [facility] [place] [address] * Phosphorus (11/07/2024 9:52 PM CDT) Phosphorus, pl 2.8 2.3 - 4.5 mg/dL Blood 11/07/2024 9:52 PM CDT 11/07/2024 10:37 PM CDT Juliano Arredondo MD LAB BLOOD ORDERABLE S Final Result Performing Organization Address [facility]/[place] de Phone Number [facility] [place] [address] * Magnesium (11/07/2024 9:52 PM CDT) Magnesium 2.4 1.4 - 2.5 mg/dL Blood 11/07/2024 9:52 PM CDT 11/07/2024 10:37 PM CDT Result [facility] Juliano Arredondo MD LAB BLOOD ORDERABLE S Final Result Performing Organization Address [facility]/[place] de Phone Number [facility] [place] [address] * (ABNORMAL) Hepatic function panel (11/07/2024 9:52 PM CDT) Bilirubin, total 2.1(H) 0.1 - 1.2 mg/dL Bilirubin, direct 1.5(H) 0.1 - 0.3 mg/dL [facility] Protein, pl 6.3(L) 6.5 - 8.5 g/dL [facility] Albumin 2.6(L) 3.5 - 5.0 g/dL [facility] Alk phos 265(H) 40 - 130 Units/L [facility] ALT 315(H) 7 - 45 Units/L [facility] AST 670(H) 10 - 45 Units/L [facility] Comment:Reviewed Blood 11/07/2024 9:52 PM CDT 11/07/2024 10:37 PM CDT us Lee Elena MD LAB BLOOD ORDERABLES Krystyna l Result [facility] [place] [address] * (ABNORMAL) Basic metabolic panel (11/07/2024 9:52 PM CDT) Sodium 134(L) 135 - 145 mmol/L Potassium, pl 3.7 3.3 - 4.9 mmol/L [facility] Chloride 95(L) 97 - 110 mmol/L [facility] CO2 24 22 - 32 mmol/L [facility] Anion gap 15 2 - 15 mmol/L [facility] BUN 7 6 - 25 mg/dL [facility] Creatinine 0.39(L) 0.60 - 1.10 mg/dL [facility] Glucose 113 70 - 199 mg/dL [facility] Comment: Interpretive Data Fasting glucose >/= [...] 2022. Calcium 8.6 8.5 - 10.3 mg/dL [facility] Blood 11/07/2024 9:52 PM CDT 11/07/2024 10:37 PM CDT Juliano Arredondo MD LAB BLOOD ORDERABLE S Final Result Performing Organization Address [facility]/[place] de Phone Number [facility] [place] [address] * POCT glucose (11/07/2024 7:49 PM CDT) Glucose, POC 123 70 - 199 mg/dL Blood 11/07/2024 7:49 PM CDT 11/07/2024 7:49 PM CDT us Lee Elena MD LAB POCT ORDERABLES - DEV ICE Final Result Performing Organization Address [facility] de Phone Number [facility] [place] [address] * POCT glucose (11/07/2024 4:53 PM CDT) Glucose, POC 115 70 - 199 mg/dL Blood 11/07/2024 4:53 PM CDT 11/07/2024 4:53 PM CDT us Lee Elena MD LAB POCT ORDERABLES - DEV ICE Final Result Performing Organization Address [facility]/[place] de Phone Number [facility] [place] [address] * POCT glucose (11/07/2024 11:13 AM CDT) Glucose, POC 150 70 - 199 mg/dL Blood 11/07/2024 11:1 3 AM CDT 11/07/2024 11:13 AM CDT Lee Elena MD LAB POCT ORDERABLES - DEV ICE Final Result Performing Organization Address [facility]/State/ZIP Co de Phone Number [facility] [place] [address] * eGFR (11/07/2024 10:19 AM CDT) eGFR [...] ORDERABLE S Final Result Performing Organization Address [facility] Co de Phone Number [facility] [place] [address] * Phosphorus (11/07/2024 10:19 AM CDT) Phosphorus, pl 3.5 2.3 - 4.5 mg/dL Blood 11/07/2024 10:1 9 AM CDT 11/07/2024 11:22 AM CDT us Juliano Arredondo MD LAB BLOOD ORDERABLE S Final Result Performing Organization Address City/State/[facility] Co de Phone Number [facility] [place] [address] * Magnesium (11/07/2024 10:19 AM CDT) Pathologist [facility] [place] Magnesium 1.5 1.4 - 2.5 mg/dL Blood 11/07/2024 10:1 9 AM CDT 11/07/2024 11:22 AM CDT Juliano Arredondo MD LAB BLOOD ORDERABLE S Final Result [facility] [place] [address] * (ABNORMAL) Basic metabolic panel (11/07/2024 10:19 AM CDT) [facility] Sodium 137 135 - 145 mmol/L Potassium, pl 3.8 3.3 - 4.9 mmol/L [facility] Chloride 99 97 - 110 mmol/L [facility] CO2 26 22 - 32 mmol/L [facility] Anion gap 12 2 - 15 mmol/L [facility] BUN 6 6 - 25 mg/dL [facility] Creatinine 0.37(L) 0.60 - 1.10 mg/dL [facility] Glucose 127 70 - 199 mg/dL [facility] Comment: Interpretive Data Fasting glucose >/= [...] 2022. Calcium 8.2(L) 8.5 - 10.3 mg/dL [facility] Blood 11/07/2024 10:1 9 AM CDT 11/07/2024 11:22 AM CDT Juliano Arredondo MD LAB BLOOD ORDERABLE S Final Result Performing Organization Address City/[facility] Co de Phone Number [facility] [place] [address] * POCT glucose (11/07/2024 7:34 AM CDT) Pathologist [facility] [place] Glucose, POC 129 70 - 199 mg/dL Blood 11/07/2024 7:34 AM CDT 11/07/2024 7:34 AM CDT Lee Elena MD LAB POCT ORDERABLES - DEV ICE Final Result Performing Organization Address [facility]/[place] [address] * Protime-INR (11/07/2024 4:47 AM CDT) [facility] PT 11.1 9.7 - 13.0 sec INR 1.03 0.90 - 1.20 [facility] Comment: Interpretive data Oral anticoagulant therapeutic ranges: Venous thromboembolism prophylaxis or treatment: 2.0-3.0 CARDIOLOGY Standard range: 2.0-3.0 High-intensity range: 2.5-3.5 Refer to indication-specific guidelines for appropriate target ranges for prosthetic heart valve replacement. Current interpretive data was last revised on 2019. Blood 11/07/2024 4:47 AM CDT 11/07/2024 5:37 AM CDT Juliano Arredondo MD LAB BLOOD ORDERABLE S Final Result Performing Organization Address [facility] Co de Phone Number [facility] [place] [address] * (ABNORMAL) CBC without differential (11/07/2024 4:47 AM CDT) [facility] WBC 5.50 3.80 - 9.90 K/cumm Hgb 9.4(L) 11.9 - 15.5 g/dL [facility] Hct 28.0(L) 35.6 - 45.5 % [facility] Plt 150 150 - 400 K/cumm [facility] MPV 11.0 9.1 - 12.3 fL [facility] RBC 2.73(L) 3.90 - 5.20 M/cumm [facility] MCV 102.6(H) 81.3 - 96.4 fL [facility] MCH 34.4(H) 27.1 - 33.3 pg [facility] MCHC 33.6 32.3 - 35.7 g/dL [facility] RDW CV 16.1(H) 11.1 - 14.9 % [facility] RDW SD 59.1(H) 35.7 - 48.1 fL [facility] NRBC abs 0.00 0.00 - 0.01 K/cumm [facility] Blood 11/07/2024 4:47 AM CDT 11/07/2024 4:57 AM CDT us Juliano Arredondo MD LAB BLOOD ORDERABLE S Final Result [facility] [place] [address] * (ABNORMAL) Hepatic function panel (11/07/2024 4:47 AM CDT) [facility] Bilirubin, total 1.6(H) 0.1 - 1.2 mg/dL Bilirubin, direct 1.0(H) 0.1 - 0.3 mg/dL [facility] Protein, pl 5.4(L) 6.5 - 8.5 g/dL [facility] Albumin 2.4(L) 3.5 - 5.0 g/dL [facility] Alk phos 271(H) 40 - 130 Units/L [facility] ALT 250(H) 7 - 45 Units/L [facility] AST 137(H) 10 - 45 Units/L [facility] Blood 11/07/2024 4:47 AM CDT 11/07/2024 4:56 AM CDT Juliano Arredondo MD LAB BLOOD ORDERABLE S Final Result Performing Organization Address City/[facility] Co de Phone Number [facility] [place] [address] * POCT glucose (11/07/2024 4:29 AM CDT) Glucose, POC 133 70 - 199 mg/dL Blood 11/07/2024 4:29 AM CDT 11/07/2024 4:29 AM CDT Lee Elena MD LAB POCT ORDERABLES - DEV ICE Final Result Performing Organization Address City/[facility] [place]/[facility] Co de Phone Number [facility] [place] [address] * eGFR (11/06/2024 9:12 PM CDT) eGFR [...] ORDERABLE S Final Result Performing Organization Address City/[facility] [place]/[facility] Co de Phone Number [facility] [place] [address] * Phosphorus (11/06/2024 9:12 PM CDT) Pathologist [facility] [place] Phosphorus, pl 3.3 2.3 - 4.5 mg/dL Blood 11/06/2024 9:12 PM CDT 11/06/2024 9:53 PM CDT Juliano Arredondo MD LAB BLOOD ORDERABLE S Final Result Performing Organization Address [facility] [place] de Phone Number [facility] [place] [address] * Magnesium (11/06/2024 9:12 PM CDT) [facility] Magnesium 2.2 1.4 - 2.5 mg/dL Blood 11/06/2024 9:12 PM CDT 11/06/2024 9:53 PM CDT Juliano Arredondo MD LAB BLOOD ORDERABLE S Final Result Performing Organization Address [facility] [place]/[facility] de Phone Number [facility] [place] [address] * (ABNORMAL) Basic metabolic panel (11/06/2024 9:12 PM CDT) Pathologist [facility] [place] Sodium 135 135 - 145 mmol/L Potassium, pl 4.5 3.3 - 4.9 mmol/L [facility] Chloride 100 97 - 110 mmol/L [facility] CO2 27 22 - 32 mmol/L [facility] Anion gap 8 2 - 15 mmol/L [facility] BUN 4(L) 6 - 25 mg/dL [facility] Creatinine 0.36(L) 0.60 - 1.10 mg/dL [facility] Glucose 106 70 - 199 mg/dL [facility] Comment: Interpretive Data Fasting glucose >/= [...] 2022. Calcium 8.1(L) 8.5 - 10.3 mg/dL [facility] Blood 11/06/2024 9:12 PM CDT 11/06/2024 9:53 PM CDT us Juliano Arredondo MD LAB BLOOD ORDERABLE S Final Result [facility] [place] [address] * POCT glucose (11/06/2024 8:41 PM CDT) Glucose, POC 112 70 - 199 mg/dL Blood 11/06/2024 8:41 PM CDT 11/06/2024 8:41 PM CDT us Lee Elena MD LAB POCT ORDERABLES - DEV ICE Final Result [facility] [place] [address] * eGFR (11/06/2024 3:51 PM CDT) eGFR [...] MD LAB BLOOD OR DERABLES Final Result [facility] [place] [address] * Phosphorus (11/06/2024 3:51 PM CDT) Phosphorus, pl 3.4 2.3 - 4.5 mg/dL Blood 11/06/2024 3:51 PM CDT 11/06/2024 4:30 PM CDT Mar George MD LAB BLOOD OR DERABLES Final Result [facility] [place] [address] * (ABNORMAL) Magnesium (11/06/2024 3:51 PM CDT) Magnesium 3.1(H) 1.4 - 2.5 mg/dL Blood 11/06/2024 3:51 PM CDT 11/06/2024 4:30 PM CDT Mar George MD LAB BLOOD OR DERABLES Final Result Performing Organization Address [facility] [place]/[facility] Co de Phone Number [facility] [place] [address] * (ABNORMAL) Hepatic function panel (11/06/2024 3:51 PM CDT) Bilirubin, total 1.3(H) 0.1 - 1.2 mg/dL Bilirubin, direct 0.6(H) 0.1 - 0.3 mg/dL [facility] Comment:Hemolyzed; result ma y be falsely decreased Protein, pl 4.9(L) 6.5 - 8.5 g/dL [facility] Albumin 2.1(L) 3.5 - 5.0 g/dL [facility] Alk phos 252(H) 40 - 130 Units/L [facility] ALT 243(H) 7 - 45 Units/L [facility] AST 150(H) 10 - 45 Units/L [facility] Comment:Hemolyzed; result ma y be falsely elevated Blood 11/06/2024 3:51 PM CDT 11/06/2024 4:30 PM CDT Juliano Arredondo MD LAB BLOOD ORDERABLE S Final Result Performing Organization Address [facility] [place]/[facility] Co de Phone Number [facility] [place] [address] * (ABNORMAL) Basic metabolic panel (11/06/2024 3:51 PM CDT) Sodium 133(L) 135 - 145 mmol/L Potassium, pl 5.1(H) 3.3 - 4.9 mmol/L [facility] Comment:Hemolyzed; Potassium value may be falsely elevated by as much as 0.3-0.5 mmol/L. Suggest redraw and reanalysis. Chloride 98 97 - 110 mmol/L [facility] CO2 27 22 - 32 mmol/L [facility] Anion gap 8 2 - 15 mmol/L [facility] BUN 3(L) 6 - 25 mg/dL [facility] Creatinine 0.34(L) 0.60 - 1.10 mg/dL [facility] Glucose 129 70 - 199 mg/dL [facility] Comment: Interpretive Data Fasting glucose >/= [...] 2022. Calcium 7.8(L) 8.5 - 10.3 mg/dL [facility] Blood 11/06/2024 3:51 PM CDT 11/06/2024 4:30 PM CDT us Mar George MD LAB BLOOD OR DERABLES Final Result Performing Organization Address City/[facility] [place]/ZIP Co de Phone Number [facility] [place] [address] * POCT glucose (11/06/2024 3:50 PM CDT) [facility] Signature Glucose, POC 139 70 - 199 mg/dL Blood 11/06/2024 3:50 PM CDT 11/06/2024 3:50 PM CDT us Juliano Arredondo MD LAB POCT ORDERABLES - DEVICE Final Result Performing Organization Address City/[facility] [place]/ZIP Co de Phone Number [facility] [place] [address] * POCT glucose (11/06/2024 11:49 AM CDT) Glucose, POC 151 70 - 199 mg/dL Blood 11/06/2024 11:4 9 AM CDT 11/06/2024 11:49 AM CDT Juliano Arredondo MD LAB POCT ORDERABLES - DEVICE Final Result [facility] [place] [address] * POCT glucose (11/06/2024 7:55 AM CDT) Glucose, POC 126 70 - 199 mg/dL Blood 11/06/2024 7:55 AM CDT 11/06/2024 7:55 AM CDT Juliano Arredondo MD LAB POCT ORDERABLES - DEVICE Final Result Performing Organization Address City/[facility] [place]/[facility] [place] [address] * eGFR (11/06/2024 5:38 AM CDT) eGFR [...] OR DERABLES Final Result Performing Organization Address [facility] [place]/[facility] de Phone Number [facility] [place] [address] * Protime-INR (11/06/2024 5:38 AM CDT) PT 10.6 9.7 - 13.0 sec INR 0.98 0.90 - 1.20 [facility] Comment: Interpretive data Oral anticoagulant therapeutic ranges: Venous thromboembolism prophylaxis or treatment: 2.0-3.0 CARDIOLOGY Standard range: 2.0-3.0 High-intensity range: 2.5-3.5 Refer to indication-specific guidelines for appropriate target ranges for prosthetic heart valve replacement. Current interpretive data was last revised on 2019. Blood 11/06/2024 5:38 AM CDT 11/06/2024 5:58 AM CDT Result [facility] Juliano Arredondo MD LAB BLOOD ORDERABLE S Final Result Performing Organization Address [facility] [place]/[facility] de Phone Number [facility] Department [place] [address] * (ABNORMAL) CBC without differential (11/06/2024 5:38 AM CDT) WBC 3.46(L) 3.80 - 9.90 K/cumm Hgb 9.1(L) 11.9 - 15.5 g/dL [facility] Hct 26.1(L) 35.6 - 45.5 % [facility] Plt 146(L) 150 - 400 K/cumm [facility] MPV 10.2 9.1 - 12.3 fL [facility] RBC 2.58(L) 3.90 - 5.20 M/cumm [facility] MCV 101.2(H) 81.3 - 96.4 fL [facility] MCH 35.3(H) 27.1 - 33.3 pg [facility] MCHC 34.9 32.3 - 35.7 g/dL [facility] RDW CV 15.9(H) 11.1 - 14.9 % [facility] RDW SD 58.6(H) 35.7 - 48.1 fL [facility] NRBC abs 0.00 0.00 - 0.01 K/cumm [facility] Blood 11/06/2024 5:38 AM CDT 11/06/2024 5:57 AM CDT us Juliano Arredondo MD LAB BLOOD ORDERABLE S Final Result [facility] [place] [address] * Phosphorus (11/06/2024 5:38 AM CDT) Phosphorus, pl 3.0 2.3 - 4.5 mg/dL Blood 11/06/2024 5:38 AM CDT 11/06/2024 5:57 AM CDT us Mar George MD LAB BLOOD OR DERABLES Final Result [facility] [place] [address] * Magnesium (11/06/2024 5:38 AM CDT) Magnesium 1.7 1.4 - 2.5 mg/dL Blood 11/06/2024 5:38 AM CDT 11/06/2024 5:57 AM CDT us Mar George MD LAB BLOOD OR DERABLES Final Result Performing Organization Address City/[facility] [place]/ZIP Co de Phone Number [facility] [place] [address] * (ABNORMAL) Hepatic function panel (11/06/2024 5:38 AM CDT) Bilirubin, total 1.3(H) 0.1 - 1.2 mg/dL Bilirubin, direct 1.0(H) 0.1 - 0.3 mg/dL [facility] Protein, pl 5.1(L) 6.5 - 8.5 g/dL [facility] Albumin 2.4(L) 3.5 - 5.0 g/dL [facility] Alk phos 291(H) 40 - 130 Units/L [facility] ALT 295(H) 7 - 45 Units/L [facility] AST 201(H) 10 - 45 Units/L [facility] Blood 11/06/2024 5:38 AM CDT 11/06/2024 5:57 AM CDT us Juliano Arredondo MD LAB BLOOD ORDERABLE S Final Result Performing Organization Address [facility] [place]/[facility] Co de Phone Number [facility] Department [place] [address] * (ABNORMAL) Basic metabolic panel (11/06/2024 5:38 AM CDT) Sodium 139 135 - 145 mmol/L Potassium, pl 4.4 3.3 - 4.9 mmol/L [facility] Chloride 102 97 - 110 mmol/L [facility] CO2 28 22 - 32 mmol/L [facility] Anion gap 9 2 - 15 mmol/L [facility] BUN 2(L) 6 - 25 mg/dL [facility] Creatinine 0.37(L) 0.60 - 1.10 mg/dL [facility] Glucose 104 70 - 199 mg/dL [facility] Comment: Interpretive Data Fasting glucose >/= [...] 2022. Calcium 8.3(L) 8.5 - 10.3 mg/dL [facility] Blood 11/06/2024 5:38 AM CDT 11/06/2024 5:57 AM CDT us Mar George MD LAB BLOOD OR DERABLES Final Result [facility] [place] [address] * ECG 12 lead (11/06/2024 4:42 AM CDT) [facility] Ventricular Rate EKG/Min 93 BPM [facility] Atrial Rate 93 BPM [facility] [place]-Interval (MSEC) 106 ms [facility] QRS-Interval (MSEC) 76 ms [facility] QT-Interval (MSEC) 356 ms [facility] QTc 442 ms [facility] P [place] 56 degrees [facility] R [place] 45 degrees [facility] T [place] 54 degrees [facility] Diagnosis Sinus rhythm with short [place] Nonspecific T wave abnormality Abnormal ECG When compared with ECG of 05-NOV-2024 12:04, No significant change was found Confirmed by SHALINI RODRIGUEZ M.D ([id number]) on 11/06/2024 1:44:41 PM [facility] 11/06/2024 4:42 AM CDT 11/06/2024 1:44 PM CDT us Jluiano Arredondo MD ECG ORDERABLES Fin al Result [facility] * POCT glucose (11/06/2024 3:46 AM CDT) Glucose, POC 113 70 - 199 mg/dL Blood 11/06/2024 3:46 AM CDT 11/06/2024 3:46 AM CDT us Juliano Arredondo MD LAB POCT ORDERABLES - DEVICE Final Result Performing Organization Address City/[facility] [place]/ZIP Co de Phone Number [facility] [place] [address] * eGFR (11/06/2024 12:39 AM CDT) eGFR [...] MD LAB BLOOD OR DERABLES Final Result [facility] [place] [address] * Phosphorus (11/06/2024 12:39 AM CDT) Pathologist [facility] [place] Phosphorus, pl 2.9 2.3 - 4.5 mg/dL Blood 11/06/2024 12:3 9 AM CDT 11/06/2024 12:57 AM CDT Mar George MD LAB BLOOD [place] [address] * Magnesium (11/06/2024 12:39 AM CDT) [facility] Magnesium 2.4 1.4 - 2.5 mg/dL Blood 11/06/2024 12:3 9 AM CDT 11/06/2024 12:57 AM CDT Mar George MD LAB BLOOD [place] [address] * (ABNORMAL) Basic metabolic panel (11/06/2024 12:39 AM CDT) Pathologist [facility] Sodium 139 135 - 145 mmol/L Potassium, pl 4.2 3.3 - 4.9 mmol/L [facility] Chloride 103 97 - 110 mmol/L [facility] CO2 28 22 - 32 mmol/L [facility] Anion gap 8 2 - 15 mmol/L [facility] BUN 2(L) 6 - 25 mg/dL [facility] Creatinine 0.37(L) 0.60 - 1.10 mg/dL [facility] Glucose 110 70 - 199 mg/dL [facility] Comment: Interpretive Data Fasting glucose >/= [...] 2022. Calcium 8.4(L) 8.5 - 10.3 mg/dL [facility] Blood 11/06/2024 12:3 9 AM CDT 11/06/2024 12:57 AM CDT Mar George MD LAB BLOOD OR DERABLES Final Result Performing Organization Address [facility] [place]/[facility] Co de Phone Number [facility] [place] [address] * POCT glucose (11/05/2024 11:37 PM CDT) Glucose, POC 150 70 - 199 mg/dL Blood 11/05/2024 11:3 7 PM CDT 11/05/2024 11:37 PM CDT Juliano Arredondo MD LAB POCT ORDERABLES - DEVICE Final Result Performing Organization Address City/[facility] [place]/[facility] Co de Phone Number [facility] [place] [address] * POCT glucose (11/05/2024 8:03 PM CDT) Glucose, POC 138 70 - 199 mg/dL Blood 11/05/2024 8:03 PM CDT 11/05/2024 8:03 PM CDT Juliano Arredondo MD LAB POCT ORDERABLES - DEVICE Final Result Performing Organization Address [facility] [place]/[facility] Co de Phone Number [facility]ERN[facility] Department [place] [address] * eGFR (11/05/2024 3:44 PM CDT) eGFR [...] LAB BLOOD OR DERABLES Final Result [facility] [place] [address] * Phosphorus (11/05/2024 3:44 PM CDT) Pathologist [facility] [place] Phosphorus, pl 3.1 2.3 - 4.5 mg/dL Blood 11/05/2024 3:44 PM CDT 11/05/2024 3:58 PM CDT Mar George MD LAB BLOOD OR DERABLES Final Result SHONA [facility] Department [place] [address] * Magnesium (11/05/2024 3:44 PM CDT) [facility] Magnesium 1.7 1.4 - 2.5 mg/dL Blood 11/05/2024 3:44 PM CDT 11/05/2024 3:58 PM CDT us Mar George MD LAB BLOOD OR DERABLES Final Result [place], [place] [id number] * (ABNORMAL) Hepatic function panel (11/05/2024 3:44 PM CDT) [facility] Bilirubin, total 1.2 0.1 - 1.2 mg/dL Bilirubin, direct 0.7(H) 0.1 - 0.3 mg/dL [facility] Protein, pl 4.8(L) 6.5 - 8.5 g/dL [facility] Albumin 2.0(L) 3.5 - 5.0 g/dL [facility] Alk phos 256(H) 40 - 130 Units/L [facility] ALT 337(H) 7 - 45 Units/L [facility] AST 277(H) 10 - 45 Units/L [facility] Blood 11/05/2024 3:44 PM CDT 11/05/2024 3:58 PM CDT us Juliano Arredondo MD LAB BLOOD ORDERABLE S Final Result [facility] Department of Laboratories [place], [place] [id number] * (ABNORMAL) Basic metabolic panel (11/05/2024 3:44 PM CDT) [facility] Sodium 136 135 - 145 mmol/L Potassium, pl 3.8 3.3 - 4.9 mmol/L [facility] Chloride 101 97 - 110 mmol/L [facility] CO2 26 22 - 32 mmol/L [facility] Anion gap 9 2 - 15 mmol/L [facility] BUN 2(L) 6 - 25 mg/dL [facility] Creatinine 0.35(L) 0.60 - 1.10 mg/dL [facility] Glucose 110 70 - 199 mg/dL [facility] Comment: Interpretive Data Fasting glucose >/= [...] 2022. Calcium 8.2(L) 8.5 - 10.3 mg/dL [facility] Blood 11/05/2024 3:44 PM CDT 11/05/2024 3:58 PM CDT us Mar George MD LAB BLOOD OR DERABLES Final Result Performing Organization Address [facility] [place]/ZIP Co de Phone Number [facility] [place] [address] * POCT glucose (11/05/2024 3:43 PM CDT) [facility] Signature Glucose, POC 119 70 - 199 mg/dL Blood 11/05/2024 3:43 PM CDT 11/05/2024 3:43 PM CDT us Juliano Arredondo MD LAB POCT ORDERABLES - DEVICE Final Result Performing Organization Address [facility] [place]/ZIP Co de Phone Number [facility] [place] [address] * ECG 12 lead (11/05/2024 12:04 PM CDT) [facility] Ventricular Rate EKG/Min 83 BPM [facility] Atrial Rate 83 BPM [facility] IL-Interval (MSEC) 100 ms [facility] QRS-Interval (MSEC) 80 ms [facility] QT-Interval (MSEC) 376 ms [facility] QTc 441 ms [facility] P [place] 66 degrees [facility] R [place] 69 degrees [facility] T [place] -77 degrees [facility] Diagnosis Sinus rhythm Nonspecific T wave abnormality Abnormal ECG Confirmed by Gustabo Mcdaniels MD ([id number]) on 11/05/2024 4:06:41 PM [facility] 11/05/2024 12:0 4 PM CDT 11/05/2024 4:06 PM CDT Juliano Arredondo MD ECG ORDERABLES Fin al Result Performing Organization Address City/[facility] [place]/[facility] Co de Phone Number [facility] * POCT glucose (11/05/2024 11:41 AM CDT) Glucose, POC 120 70 - 199 mg/dL Blood 11/05/2024 11:4 1 AM CDT 11/05/2024 11:41 AM CDT Juliano Arredondo MD LAB POCT ORDERABLES - DEVICE Final Result Performing Organization Address City/[facility] [place]/ZIP Co de Phone Number [facility] [place] [address] * POCT glucose (11/05/2024 7:43 AM CDT) Glucose, POC 113 70 - 199 mg/dL Blood 11/05/2024 7:43 AM CDT 11/05/2024 7:43 AM CDT Juliano Arredondo MD LAB POCT ORDERABLES - DEVICE Final Result [facility] [place] [address] * ECG 12 lead (11/05/2024 6:04 AM CDT) Ventricular Rate EKG/Min 83 BPM [facility] Atrial Rate 83 BPM [facility] [place]-Interval (MSEC) 98 ms [facility] QRS-Interval (MSEC) 68 ms [facility] QT-Interval (MSEC) 362 ms [facility] QTc 425 ms [facility] P [place] 65 degrees [facility] R [place] 45 degrees [facility] T [place] 12 degrees [facility] Diagnosis Sinus rhythm with short [place] T wave abnormality, consider anterior ischemia Abnormal ECG Confirmed by Gustabo Mcdaniels MD ([id number]) on 11/05/2024 4:02:55 PM [facility] 11/05/2024 6:04 AM CDT 11/05/2024 4:02 PM CDT us Juliano Arredondo MD ECG ORDERABLES Fin al Result [facility] * eGFR (11/05/2024 5:08 AM CDT) eGFR [...] OR DERABLES Final Result Performing Organization Address [facility] [place]/ZIP Co de Phone Number [facility] [place] [address] * Protime-INR (11/05/2024 5:08 AM CDT) PT 12.9 9.7 - 13.0 sec INR 1.19 0.90 - 1.20 [facility] Comment: Interpretive data Oral anticoagulant therapeutic [...] ORDERABLE S Final Result Performing Organization Address [facility] [place]/[facility] Co de Phone Number [facility] [place] [address] * (ABNORMAL) CBC without differential (11/05/2024 5:08 AM CDT) WBC 2.28(L) 3.80 - 9.90 K/cumm Hgb 8.5(L) 11.9 - 15.5 g/dL [facility] Hct 24.5(L) 35.6 - 45.5 % [facility] Plt 126(L) 150 - 400 K/cumm [facility] MPV 11.0 9.1 - 12.3 fL [facility] RBC 2.48(L) 3.90 - 5.20 M/cumm [facility] MCV 98.8(H) 81.3 - 96.4 fL [facility] MCH 34.3(H) 27.1 - 33.3 pg [facility] MCHC 34.7 32.3 - 35.7 g/dL [facility] RDW CV 15.9(H) 11.1 - 14.9 % [facility] RDW SD 56.5(H) 35.7 - 48.1 fL [facility] NRBC abs 0.00 0.00 - 0.01 K/cumm [facility] Blood 11/05/2024 5:08 AM CDT 11/05/2024 5:31 AM CDT Juliano Arredondo MD LAB BLOOD ORDERABLE S Final Result Performing Organization Address City/[facility]/ZIP Co de Phone Number [facility] [place] [address] * (ABNORMAL) CRP (acute phase) (11/05/2024 5:08 AM CDT) CRP 40.2(H) <=10.0 mg/L Blood 11/05/2024 5:08 AM CDT 11/05/2024 5:30 AM CDT Juliano Arredondo MD LAB BLOOD ORDERABLE S Final Result [facility] [place] [address] * Phosphorus (11/05/2024 5:08 AM CDT) Phosphorus, pl 3.8 2.3 - 4.5 mg/dL Blood 11/05/2024 5:08 AM CDT 11/05/2024 5:30 AM CDT us Mar George MD LAB BLOOD OR DERABLES Final Result Performing Organization Address City/[facility]/ZIP Co de Phone Number [facility] [place] [address] * Magnesium (11/05/2024 5:08 AM CDT) [facility] Magnesium 2.2 1.4 - 2.5 mg/dL Blood 11/05/2024 5:08 AM CDT 11/05/2024 5:30 AM CDT Mar George MD LAB BLOOD OR DERABLES Final Result Performing Organization Address [facility] Co de Phone Number [facility] [place] [address] * (ABNORMAL) Hepatic function panel (11/05/2024 5:08 AM CDT) [facility] Bilirubin, total 1.4(H) 0.1 - 1.2 mg/dL Bilirubin, direct 1.0(H) 0.1 - 0.3 mg/dL [facility] Protein, pl 4.7(L) 6.5 - 8.5 g/dL [facility] Albumin 2.3(L) 3.5 - 5.0 g/dL [facility] Alk phos 295(H) 40 - 130 Units/L [facility] ALT 376(H) 7 - 45 Units/L [facility] AST 388(H) 10 - 45 Units/L [facility] Blood 11/05/2024 5:08 AM CDT 11/05/2024 5:30 AM CDT Mar George MD LAB BLOOD OR DERABLES Final Result Performing Organization Address City/[facility]/ZIP Co de Phone Number [facility] [place] [address] * (ABNORMAL) Basic metabolic panel (11/05/2024 5:08 AM CDT) Sodium 136 135 - 145 mmol/L Potassium, pl 4.1 3.3 - 4.9 mmol/L [facility] Chloride 101 97 - 110 mmol/L [facility] CO2 26 22 - 32 mmol/L [facility] Anion gap 9 2 - 15 mmol/L [facility] BUN 2(L) 6 - 25 mg/dL [facility] Creatinine 0.41(L) 0.60 - 1.10 mg/dL [facility] Glucose 108 70 - 199 mg/dL [facility] Comment: Interpretive Data Fasting glucose >/= [...] 2022. Calcium 8.1(L) 8.5 - 10.3 mg/dL [facility] Blood 11/05/2024 5:08 AM CDT 11/05/2024 5:30 AM CDT us Mar George MD LAB BLOOD OR DERABLES Final Result [facility] [place] [address] * POCT glucose (11/05/2024 3:53 AM CDT) Glucose, POC 164 70 - 199 mg/dL Blood 11/05/2024 3:53 AM CDT 11/05/2024 3:53 AM CDT us Juliano Arredondo MD LAB POCT ORDERABLES - DEVICE Final Result SH[facility] [place] [address] * eGFR (11/04/2024 11:44 PM CDT) eGFR [...] OR DERABLES Final Result Performing Organization Address [facility] de Phone Number [facility] [facility] [place] [address] * Phosphorus (11/04/2024 11:44 PM CDT) Phosphorus, pl 3.9 2.3 - 4.5 mg/dL Blood 11/04/2024 11:4 4 PM CDT 11/05/2024 4:37 AM CDT Mar George MD LAB BLOOD OR DERABLES Final Result Performing Organization Address [facility] Co de Phone Number [facility] [place] [address] * (ABNORMAL) Magnesium (11/04/2024 11:44 PM CDT) [facility] Magnesium 3.0(H) 1.4 - 2.5 mg/dL Comment:Repeated and Verifie d Blood 11/04/2024 11:4 4 PM CDT 11/05/2024 4:37 AM CDT Mar George MD LAB BLOOD OR DERABLES Final Result Performing Organization Address [facility] Co de Phone Number [facility] [place] [address] * (ABNORMAL) Basic metabolic panel (11/04/2024 11:44 PM CDT) [facility] Sodium 136 135 - 145 mmol/L Potassium, pl See Comment 3.3 - 4.9 mmol/L [facility] Comment:Credited: Specimen t oo old Chloride 99 97 - 110 mmol/L [facility] CO2 See Comment 22 - 32 mmol/L [facility] Comment:Credited: Specimen t oo old Anion gap See Comment 2 - 15 mmol/L [facility] Comment:Credited: Specimen t oo old BUN 3(L) 6 - 25 mg/dL [facility] Creatinine 0.43(L) 0.60 - 1.10 mg/dL [facility] Glucose See Comment 70 - 199 mg/dL [facility] Comment: Credited: Specimen too old Interpretive [...] 2022. Calcium 8.2(L) 8.5 - 10.3 mg/dL [facility] Blood 11/04/2024 11:4 4 PM CDT 11/05/2024 4:37 AM CDT Mar George MD LAB BLOOD OR DERABLES Edited Result - Final Performing Organization Address City/[facility]/ZIP Co de Phone Number [facility] [place] [address] * POCT glucose (11/04/2024 11:41 PM CDT) Glucose, POC 141 70 - 199 mg/dL Blood 11/04/2024 11:4 1 PM CDT 11/04/2024 11:41 PM CDT us Juliano Arredondo MD LAB POCT ORDERABLES - DEVICE Final Result Performing Organization Address City/[facility] Co de Phone Number [facility] [place] [address] * POCT glucose (11/04/2024 8:01 PM CDT) Glucose, POC 157 70 - 199 mg/dL Blood 11/04/2024 8:01 PM CDT 11/04/2024 8:01 PM CDT Juliano Arredondo MD LAB POCT ORDERABLES - DEVICE Final Result Performing Organization Address City/[facility] Co de Phone Number [facility] [place] [address] * eGFR (11/04/2024 3:43 PM CDT) eGFR [...] MD LAB BLOOD OR DERABLES Final Result [facility] [place] [address] * (ABNORMAL) Protime-INR (11/04/2024 3:43 PM CDT) PT 16.9(H) 9.7 - 13.0 sec INR 1.55(H) 0.90 - 1.20 [facility] Comment: Interpretive data Oral anticoagulant therapeutic [...] ORDERABLE S Final Result Performing Organization Address City/[facility]/ZIP Co de Phone Number [facility] [place] [address] * Phosphorus (11/04/2024 3:43 PM CDT) [facility] Phosphorus, pl 3.9 2.3 - 4.5 mg/dL Blood 11/04/2024 3:43 PM CDT 11/04/2024 4:55 PM CDT Mar George MD LAB BLOOD OR DERABLES Final Result Performing Organization Address [facility] Co de Phone Number [facility] Department [place] [address] * (ABNORMAL) Magnesium (11/04/2024 3:43 PM CDT) [facility] Magnesium 1.2(L) 1.4 - 2.5 mg/dL Blood 11/04/2024 3:43 PM CDT 11/04/2024 4:55 PM CDT Mar George MD LAB BLOOD OR DERABLES Final Result Performing Organization Address [facility] Co de Phone Number [facility] [place] [address] * (ABNORMAL) Hepatic function panel (11/04/2024 3:43 PM CDT) [facility] Bilirubin, total 1.7(H) 0.1 - 1.2 mg/dL Bilirubin, direct 1.3(H) 0.1 - 0.3 mg/dL [facility] Protein, pl 4.3(L) 6.5 - 8.5 g/dL [facility] Albumin 1.7(L) 3.5 - 5.0 g/dL [facility] Alk phos 251(H) 40 - 130 Units/L [facility] ALT 459(H) 7 - 45 Units/L [facility] AST 683(H) 10 - 45 Units/L [facility] Blood 11/04/2024 3:43 PM CDT 11/04/2024 4:55 PM CDT us Juliano Arredondo MD LAB BLOOD ORDERABLE S Final Result Performing Organization Address City/State/[facility] Co de Phone Number [facility] Department [place] [address] * (ABNORMAL) Basic metabolic panel (11/04/2024 3:43 PM CDT) Sodium 133(L) 135 - 145 mmol/L Potassium, pl 3.5 3.3 - 4.9 mmol/L [facility] Chloride 94(L) 97 - 110 mmol/L [facility] CO2 24 22 - 32 mmol/L [facility] Anion gap 15 2 - 15 mmol/L [facility] BUN 4(L) 6 - 25 mg/dL [facility] Creatinine 0.42(L) 0.60 - 1.10 mg/dL [facility] Glucose 107 70 - 199 mg/dL [facility] Comment: Interpretive Data Fasting glucose >/= [...] 2022. Calcium 7.4(L) 8.5 - 10.3 mg/dL [facility] Blood 11/04/2024 3:43 PM CDT 11/04/2024 4:55 PM CDT us Mar George MD LAB BLOOD OR DERABLES Final Result Performing Organization Address City/State/[facility] Co de Phone Number [facility] [place] [address] * POCT glucose (11/04/2024 3:42 PM CDT) Glucose, POC 123 70 - 199 mg/dL Blood 11/04/2024 3:42 PM CDT 11/04/2024 3:42 PM CDT Juliano Arredondo MD LAB POCT ORDERABLES - DEVICE Final Result Performing Organization Address [facility] [place] [address] * POCT glucose (11/04/2024 12:45 PM CDT) Glucose, POC 108 70 - 199 mg/dL Blood 11/04/2024 12:4 5 PM CDT 11/04/2024 12:45 PM CDT Juliano Arredondo MD LAB POCT ORDERABLES - DEVICE Final Result Performing Organization Address [facility] Co de Phone Number [facility] [place] [address] * POCT glucose (11/04/2024 11:47 AM CDT) Glucose, POC 74 70 - 199 mg/dL Blood 11/04/2024 11:4 7 AM CDT 11/04/2024 11:47 AM CDT us Juliano Arredondo MD LAB POCT ORDERABLES - DEVICE Final Result Performing Organization Address City/[facility] Co de Phone Number [facility] [place] [address] * POCT glucose (11/04/2024 8:06 AM CDT) Glucose, POC 112 70 - 199 mg/dL Blood 11/04/2024 8:06 AM CDT 11/04/2024 8:06 AM CDT Juliano Arredondo MD LAB POCT ORDERABLES - DEVICE Final Result Performing Organization Address [facility] Co de Phone Number [facility] [place] [address] * POCT glucose (11/04/2024 7:48 AM CDT) Glucose, POC 125 70 - 199 mg/dL Blood 11/04/2024 7:48 AM CDT 11/04/2024 7:48 AM CDT Juliano Arredondo MD LAB POCT ORDERABLES - DEVICE Final Result Performing Organization Address [facility]/[place] de Phone Number [facility] [place] [address] * (ABNORMAL) POCT glucose (11/04/2024 7:04 AM CDT) Glucose, POC 60(L) 70 - 199 mg/dL Blood 11/04/2024 7:04 AM CDT 11/04/2024 7:04 AM CDT Juliano Arredondo MD LAB POCT ORDERABLES - DEVICE Final Result Performing Organization Address [facility] Co de Phone Number [facility] [place] [address] * ECG 12 lead (11/04/2024 6:32 AM CDT) Ventricular Rate EKG/Min 97 BPM [facility] Atrial Rate 97 BPM [facility] [place]-Interval (MSEC) 104 ms [facility] QRS-Interval (MSEC) 68 ms [facility] QT-Interval (MSEC) 372 ms [facility] QTc 472 ms [facility] P [place] 39 degrees [facility] R [place] 52 degrees [facility] T [place] 178 degrees [facility] Diagnosis Poor data quality, interpretation may be adversely affected Sinus rhythm with short [place] Nonspecific ST and T wave abnormality suggests inferolateral ischemia Abnormal ECG When compared with ECG of 03-NOV-2024 12:35, (unconfirmed) Nonspecific T wave abnormality, improved in Inferior leads Confirmed by BILLY CHACKO M.D ([id number]) on 11/06/2024 9:15:38 AM [facility] 11/04/2024 6:32 AM CDT 11/06/2024 9:15 AM CDT us Juliano Arredondo MD ECG ORDERABLES Fin al Result [facility] * eGFR (11/04/2024 6:03 AM CDT) eGFR [...] OR DERABLES Final Result Performing Organization Address [facility] Co de Phone Number [facility] [place] [address] * (ABNORMAL) Protime-INR (11/04/2024 6:03 AM CDT) [facility] PT 19.8(H) 9.7 - 13.0 sec INR 1.81(H) 0.90 - 1.20 [facility] Comment: Interpretive data Oral anticoagulant therapeutic [...] ORDERABLE S Final Result Performing Organization Address [facility] de Phone Number [facility] Department [place] [address] * (ABNORMAL) CBC without differential (11/04/2024 6:03 AM CDT) [facility] WBC 5.43 3.80 - 9.90 K/cumm Hgb 9.3(L) 11.9 - 15.5 g/dL [facility] Hct 26.3(L) 35.6 - 45.5 % [facility] Plt 110(L) 150 - 400 K/cumm [facility] MPV 11.2 9.1 - 12.3 fL [facility] RBC 2.68(L) 3.90 - 5.20 M/cumm [facility] MCV 98.1(H) 81.3 - 96.4 fL [facility] MCH 34.7(H) 27.1 - 33.3 pg [facility] MCHC 35.4 32.3 - 35.7 g/dL [facility] RDW CV 15.4(H) 11.1 - 14.9 % [facility] RDW SD 54.5(H) 35.7 - 48.1 fL [facility] NRBC abs 0.00 0.00 - 0.01 K/cumm [facility] Blood 11/04/2024 6:03 AM CDT 11/04/2024 6:23 AM CDT Juliano Arredondo MD LAB BLOOD ORDERABLE S Final Result Performing Organization Address City/[facility]/ZIP Co de Phone Number [facility] [place] [address] * Phosphorus (11/04/2024 6:03 AM CDT) Phosphorus, pl 3.8 2.3 - 4.5 mg/dL Blood 11/04/2024 6:03 AM CDT 11/04/2024 6:24 AM CDT us Mar George MD LAB BLOOD OR DERABLES Final Result Performing Organization Address City/[facility]/ZIP Co de Phone Number [facility] [place] [address] * Magnesium (11/04/2024 6:03 AM CDT) Magnesium 1.8 1.4 - 2.5 mg/dL Blood 11/04/2024 6:03 AM CDT 11/04/2024 6:24 AM CDT Mar George MD LAB BLOOD OR DERABLES Final Result [facility] [place] [address] * Acetaminophen level (11/04/2024 6:03 AM CDT) [...] after ingestion Consult toxicology or poison control ([phone]) for unknown ingestion time. Current interpretive data was last revised 2023. Blood 11/04/2024 6:03 AM CDT 11/04/2024 6:24 AM CDT us Juliano Arredondo MD LAB BLOOD ORDERABLE S Final Result Performing Organization Address City/[facility]/ZIP Co de Phone Number [facility] [place] [address] * (ABNORMAL) Hepatic function panel (11/04/2024 6:03 AM CDT) Bilirubin, total 1.9(H) 0.1 - 1.2 mg/dL Bilirubin, direct 1.5(H) 0.1 - 0.3 mg/dL [facility] Protein, pl 4.3(L) 6.5 - 8.5 g/dL [facility] Albumin 1.8(L) 3.5 - 5.0 g/dL [facility] Alk phos 250(H) 40 - 130 Units/L [facility] ALT 562(H) 7 - 45 Units/L [facility] AST 1,170(H) 10 - 45 Units/L [facility] Blood 11/04/2024 6:03 AM CDT 11/04/2024 6:24 AM CDT us Mar George MD LAB BLOOD OR DERABLES Final Result Performing Organization Address City/[facility]/ZIP Co de Phone Number [facility] [place] [address] * (ABNORMAL) Basic metabolic panel (11/04/2024 6:03 AM CDT) Pathologist [facility] Sodium 136 135 - 145 mmol/L Potassium, pl 4.4 3.3 - 4.9 mmol/L [facility] Chloride 99 97 - 110 mmol/L [facility] CO2 25 22 - 32 mmol/L [facility] Anion gap 12 2 - 15 mmol/L [facility] BUN 4(L) 6 - 25 mg/dL [facility] Creatinine 0.40(L) 0.60 - 1.10 mg/dL [facility] Glucose 59(L) 70 - 199 mg/dL [facility] Comment: Interpretive Data Fasting glucose >/= [...] 2022. Calcium 7.7(L) 8.5 - 10.3 mg/dL [facility] Blood 11/04/2024 6:03 AM CDT 11/04/2024 6:24 AM CDT us Mar George MD LAB BLOOD OR DERABLES Final Result [facility] [place] [address] * POCT glucose (11/04/2024 12:23 AM CDT) Glucose, POC 102 70 - 199 mg/dL Blood 11/04/2024 12:2 3 AM CDT 11/04/2024 12:23 AM CDT us Juliano Arredondo MD LAB POCT ORDERABLES - DEVICE Final Result [facility] [place] [address] * eGFR (11/04/2024 12:02 AM CDT) eGFR [...] LAB BLOOD OR DERABLES Final Result [facility] [place] [address] * Phosphorus (11/04/2024 12:02 AM CDT) Phosphorus, pl 3.8 2.3 - 4.5 mg/dL Blood 11/04/2024 12:0 2 AM CDT 11/04/2024 12:34 AM CDT Mar George MD LAB BLOOD OR DERABLES Final Result [facility] [place] [address] * Magnesium (11/04/2024 12:02 AM CDT) Pathologist [facility] [place] Magnesium 2.3 1.4 - 2.5 mg/dL Blood 11/04/2024 12:0 2 AM CDT 11/04/2024 12:34 AM CDT Mar George MD LAB BLOOD OR DERABLES Final Result Performing Organization Address [facility]/[place] de Phone Number [facility] [place] [address] * (ABNORMAL) Basic metabolic panel (11/04/2024 12:02 AM CDT) Pathologist [facility] [place] Sodium 139 135 - 145 mmol/L Potassium, pl 3.7 3.3 - 4.9 mmol/L [facility] Chloride 102 97 - 110 mmol/L [facility] CO2 27 22 - 32 mmol/L [facility] Anion gap 10 2 - 15 mmol/L [facility] BUN 5(L) 6 - 25 mg/dL [facility] Creatinine 0.41(L) 0.60 - 1.10 mg/dL [facility] Glucose 84 70 - 199 mg/dL [facility] Comment: Interpretive Data Fasting glucose >/= [...] Calcium 7.8(L) 8.5 - 10.3 mg/dL [facility] Blood 11/04/2024 12:0 2 AM CDT 11/04/2024 12:34 AM CDT Mar George MD LAB BLOOD OR DERABLES Final Result [facility] [place] [address] * US Abdomen Complete W Liver Doppler [...] - DEVICE Final Result [facility] [place] [address] * eGFR (11/03/2024 4:10 PM CDT) eGFR [...] OR DERABLES Final Result Performing Organization Address [facility] [place] [address] * Phosphorus (11/03/2024 4:10 PM CDT) Phosphorus, pl 3.2 2.3 - 4.5 mg/dL Blood 11/03/2024 4:10 PM CDT 11/03/2024 4:18 PM CDT Mar George MD LAB BLOOD OR DERABLES Final Result Performing Organization Address [facility] de Phone Number [facility] [place] [address] * Magnesium (11/03/2024 4:10 PM CDT) Magnesium 1.7 1.4 - 2.5 mg/dL Blood 11/03/2024 4:10 PM CDT 11/03/2024 4:18 PM CDT Mar George MD LAB BLOOD OR DERABLES Final Result Performing Organization Address [facility] Co de Phone Number [facility] [place] [address] * (ABNORMAL) Basic metabolic panel (11/03/2024 4:10 PM CDT) Sodium 137 135 - 145 mmol/L Potassium, pl 4.6 3.3 - 4.9 mmol/L [facility] Chloride 102 97 - 110 mmol/L [facility] CO2 28 22 - 32 mmol/L [facility] Anion gap 7 2 - 15 mmol/L [facility] BUN 8 6 - 25 mg/dL [facility] Creatinine 0.53(L) 0.60 - 1.10 mg/dL [facility] Glucose 98 70 - 199 mg/dL [facility] Comment: Interpretive Data Fasting glucose >/= [...] 2022. Calcium 7.6(L) 8.5 - 10.3 mg/dL [facility] Blood 11/03/2024 4:10 PM CDT 11/03/2024 4:18 PM CDT us Mar George MD LAB BLOOD OR DERABLES Final Result [facility] [place] [address] * KATEY ab ql w/rflx to KATEY qn (11/03/2024 2:31 PM CDT) Pathologist [facility] [place] KATEY Negative Comment: Interpretive Data Normal range [...] OR DERABLES Final Result Performing Organization Address [facility] Co de Phone Number [facility] [place] [address] * Smooth muscle antibody, qualitative (11/03/2024 2:31 PM CDT) [facility] Anti-smooth muscle Negative Negative Blood 11/03/2024 2:31 PM CDT 11/03/2024 2:39 PM CDT Mra George MD LAB BLOOD OR DERABLES Final Result Performing Organization Address [facility] de Phone Number [facility] [place] [address] * Mitochondrial antibodies, qualitative (11/03/2024 2:31 PM CDT) [facility] Anti-mitochond rial Negative Negative Blood 11/03/2024 2:31 PM CDT 11/03/2024 2:38 PM CDT Mar George MD LAB BLOOD OR DERABLES Final Result Performing Organization Address [facility] Co de Phone Number [facility] [place] [address] * Hepatitis panel, acute Blood (11/03/2024 2:31 PM CDT) [facility] Hep A IgM Nonreactive Nonreactive Hep B core IgM Nonreactive Nonreactive [facility] Hep C Ab Nonreactive Nonreactive [facility] Comment:Antibodies to HCV no t detected. Does NOT exclude the possibility of recent exposure to HCV. Current interpretive data was last revised on 22 HepBsAg Nonreactive Nonreactive [facility] Blood 11/03/2024 2:31 PM CDT 11/03/2024 2:38 PM CDT Mar George MD LAB MICROBIOLOGY - GENERAL ORDERABLES Final Result Performing Organization Address [facility]/[place] de Phone Number [facility] [place] [address] * (ABNORMAL) Protime-INR (11/03/2024 2:31 PM CDT) PT 17.4(H) 9.7 - 13.0 sec INR 1.60(H) 0.90 - 1.20 [facility] Comment: Interpretive data Oral anticoagulant therapeutic ranges: Venous thromboembolism prophylaxis or treatment: 2.0-3.0 CARDIOLOGY Standard range: 2.0-3.0 High-intensity range: 2.5-3.5 Refer to indication-specific guidelines for appropriate target ranges for prosthetic heart valve replacement. Current interpretive data was last revised on 2019. Blood 11/03/2024 2:31 PM CDT 11/03/2024 2:40 PM CDT Mar George MD LAB BLOOD OR DERABLES Final Result Performing Organization Address [facility] de Phone Number [facility] [place] [address] * (ABNORMAL) Hepatic function panel (11/03/2024 2:31 PM CDT) Bilirubin, total 1.9(H) 0.1 - 1.2 mg/dL Bilirubin, direct 1.4(H) 0.1 - 0.3 mg/dL [facility] Protein, pl 4.2(L) 6.5 - 8.5 g/dL [facility] Albumin 1.9(L) 3.5 - 5.0 g/dL [facility] Alk phos 233(H) 40 - 130 Units/L [facility] ALT 730(H) 7 - 45 Units/L [facility] AST 2,285(H) 10 - 45 Units/L [facility] Blood 11/03/2024 2:31 PM CDT 11/03/2024 2:38 PM CDT us Mar George MD LAB BLOOD OR DERABLES Final Result [facility] [place] [address] * ECG 12 lead (11/03/2024 12:35 PM CDT) Ventricular Rate EKG/Min 94 BPM [facility] Atrial Rate 94 BPM [facility] IL-Interval (MSEC) 110 ms [facility] QRS-Interval (MSEC) 68 ms [facility] QT-Interval (MSEC) 378 ms [facility] QTc 472 ms [facility] P [place] 42 degrees [facility] R [place] 59 degrees [facility] T [place] -37 degrees [facility] Diagnosis Sinus rhythm with short [place] T wave abnormality, consider lateral ischemia Prolonged QT Abnormal ECG When compared with ECG of 02-NOV-2024 06:38, Inverted T waves have replaced nonspecific T wave abnormality in Lateral leads Confirmed by SHALINI RODRIGUEZ M.D ([id number]) on 11/05/2024 10:36:23 PM [facility] 11/03/2024 12:3 5 PM CDT 11/05/2024 10:36 PM CDT us Juliano Arredondo MD ECG ORDERABLES Fin al Result [facility] * eGFR (11/03/2024 8:33 AM CDT) eGFR [...] OR DERABLES Final Result Performing Organization Address City/[facility]/ZIP Co de Phone Number [facility] [place] [address] * (ABNORMAL) Iron profile w/ IBC (11/03/2024 8:33 AM CDT) Pathologist [facility] [place] Iron 69 35 - 145 mcg/dL TIBC 101(L) 250 - 400 mcg/dL [facility] Transferrin saturation 68(H) 20 - 50 % [facility] Blood 11/03/2024 8:33 AM CDT 11/03/2024 9:20 AM CDT us Mar George MD LAB BLOOD OR DERABLES Final Result [facility] [place] [address] * (ABNORMAL) CBC without differential (11/03/2024 8:33 AM CDT) Pathologist [facility] [place] WBC 4.86 3.80 - 9.90 K/cumm Hgb 9.5(L) 11.9 - 15.5 g/dL [facility] Hct 27.5(L) 35.6 - 45.5 % [facility] Plt 87(L) 150 - 400 K/cumm [facility] MPV 12.2 9.1 - 12.3 fL [facility] RBC 2.77(L) 3.90 - 5.20 M/cumm [facility] MCV 99.3(H) 81.3 - 96.4 fL [facility] MCH 34.3(H) 27.1 - 33.3 pg [facility] MCHC 34.5 32.3 - 35.7 g/dL [facility] RDW CV 15.2(H) 11.1 - 14.9 % [facility] RDW SD 55.1(H) 35.7 - 48.1 fL [facility] NRBC abs 0.00 0.00 - 0.01 K/cumm [facility] Blood 11/03/2024 8:33 AM CDT 11/03/2024 9:19 AM CDT us Mar George MD LAB BLOOD OR DERABLES Final Result Performing Organization Address City/[facility] Co de Phone Number [facility] [place] [address] * Phosphorus (11/03/2024 8:33 AM CDT) Pathologist [facility] [place] Phosphorus, pl 2.7 2.3 - 4.5 mg/dL Blood 11/03/2024 8:33 AM CDT 11/03/2024 9:20 AM CDT Mar George MD LAB BLOOD OR DERABLES Final Result Performing Organization Address City/[facility] Co de Phone Number [facility] [place] [address] * Magnesium (11/03/2024 8:33 AM CDT) Pathologist [facility] [place] Magnesium 2.3 1.4 - 2.5 mg/dL Blood 11/03/2024 8:33 AM CDT 11/03/2024 9:20 AM CDT Mar George MD LAB BLOOD OR DERABLES Final Result Performing Organization Address City/[facility] [place] [address] * (ABNORMAL) Ferritin (11/03/2024 8:33 AM CDT) [facility] Ferritin 7,953(H) 13 - 150 ng/mL Blood 11/03/2024 8:33 AM CDT 11/03/2024 9:20 AM CDT Mar George MD LAB BLOOD OR DERABLES Final Result Performing Organization Address City/[facility] [place] [address] * Creatine kinase (CK), total (11/03/2024 8:33 AM CDT) [facility] CK 72 30 - 200 Units/L Blood 11/03/2024 8:33 AM CDT 11/03/2024 9:20 AM CDT Mar George MD LAB BLOOD OR DERABLES Final Result Performing Organization Address [facility] [place] [address] * (ABNORMAL) Acetaminophen level (11/03/2024 8:33 AM [...] after ingestion Consult toxicology or poison control ([phone]) for unknown ingestion time. Current interpretive data was last revised 2023. Blood 11/03/2024 8:33 AM CDT 11/03/2024 9:20 AM CDT Mar George MD LAB BLOOD OR DERABLES Final Result Performing Organization Address City/[facility]/ZIP Co de Phone Number [facility] [place] [address] * (ABNORMAL) Hepatic function panel (11/03/2024 8:33 AM CDT) Bilirubin, total 1.6(H) 0.1 - 1.2 mg/dL Bilirubin, direct 1.2(H) 0.1 - 0.3 mg/dL [facility] Comment:Reviewed Protein, pl 4.1(L) 6.5 - 8.5 g/dL [facility] Albumin 1.9(L) 3.5 - 5.0 g/dL [facility] Alk phos 207(H) 40 - 130 Units/L [facility] ALT 730(H) 7 - 45 Units/L [facility] Comment:Repeated on Dilution AST 2,754(H) 10 - 45 Units/L [facility] Comment:Repeated on Dilution Blood 11/03/2024 8:33 AM CDT 11/03/2024 9:20 AM CDT Mar George MD LAB BLOOD OR DERABLES Final Result Performing Organization Address City/[facility]/ZIP Co de Phone Number [facility] [place] [address] * (ABNORMAL) Basic metabolic panel (11/03/2024 8:33 AM CDT) Pathologist [facility] [place] Sodium 136 135 - 145 mmol/L Potassium, pl 4.4 3.3 - 4.9 mmol/L [facility] Chloride 100 97 - 110 mmol/L [facility] CO2 28 22 - 32 mmol/L [facility] Anion gap 8 2 - 15 mmol/L [facility] BUN 8 6 - 25 mg/dL [facility] Creatinine 0.57(L) 0.60 - 1.10 mg/dL [facility] Glucose 97 70 - 199 mg/dL [facility] Comment: Interpretive Data Fasting glucose >/= [...] 2022. Calcium 7.4(L) 8.5 - 10.3 mg/dL [facility] Blood 11/03/2024 8:33 AM CDT 11/03/2024 9:20 AM CDT Mar George MD LAB BLOOD OR DERABLES Final Result [facility] Department [place] [address] * eGFR (11/03/2024 12:15 AM CDT) [facility] eGFR >90 >=60 mL/min/1. 73 m2 Comment: [...] OR DERABLES Final Result Performing Organization Address City/[facility]/ZIP Co de Phone Number [facility] [place] [address] * Phosphorus (11/03/2024 12:15 AM CDT) Phosphorus, pl 2.9 2.3 - 4.5 mg/dL Blood 11/03/2024 12:1 5 AM CDT 11/03/2024 1:51 AM CDT Mar George MD LAB BLOOD OR DERABLES Final Result [facility] [place] [address] * Magnesium (11/03/2024 12:15 AM CDT) Magnesium 1.9 1.4 - 2.5 mg/dL Blood 11/03/2024 12:1 5 AM CDT 11/03/2024 1:51 AM CDT Mar George MD LAB BLOOD OR DERABLES Final Result [facility] Department [place] [address] * (ABNORMAL) Basic metabolic panel (11/03/2024 12:15 AM CDT) Pathologist [facility] [place] Sodium 136 135 - 145 mmol/L Potassium, pl 3.9 3.3 - 4.9 mmol/L [facility] Chloride 98 97 - 110 mmol/L [facility] CO2 29 22 - 32 mmol/L [facility] Anion gap 9 2 - 15 mmol/L [facility] BUN 8 6 - 25 mg/dL [facility] Creatinine 0.52(L) 0.60 - 1.10 mg/dL [facility] Glucose 89 70 - 199 mg/dL [facility] Comment: Interpretive Data Fasting glucose >/= [...] 2022. Calcium 7.6(L) 8.5 - 10.3 mg/dL [facility] Blood 11/03/2024 12:1 5 AM CDT 11/03/2024 1:51 AM CDT Mar George MD LAB BLOOD OR DERABLES Final Result [facility] [place] [address] * eGFR (11/02/2024 4:06 PM CDT) [facility] eGFR >90 >=60 mL/min/1. 73 m2 Comment: [...] MD LAB BLOOD OR DERABLES Final Result [facility] [place] [address] * Phosphorus (11/02/2024 4:06 PM CDT) Phosphorus, pl 2.7 2.3 - 4.5 mg/dL Blood 11/02/2024 4:06 PM CDT 11/02/2024 4:29 PM CDT Mar George MD LAB BLOOD OR DERABLES Final Result [facility] [place] [address] * Magnesium (11/02/2024 4:06 PM CDT) Magnesium 1.6 1.4 - 2.5 mg/dL Blood 11/02/2024 4:06 PM CDT 11/02/2024 4:29 PM CDT Mar George MD LAB BLOOD OR DERABLES Final Result [facility] [place] [address] * (ABNORMAL) Basic metabolic panel (11/02/2024 4:06 PM CDT) [facility] Sodium 137 135 - 145 mmol/L Potassium, pl 4.1 3.3 - 4.9 mmol/L [facility] Comment:Repeated and Verifie d Chloride 100 97 - 110 mmol/L [facility] CO2 29 22 - 32 mmol/L [facility] Anion gap 8 2 - 15 mmol/L [facility] BUN 9 6 - 25 mg/dL [facility] Creatinine 0.56(L) 0.60 - 1.10 mg/dL [facility] Glucose 118 70 - 199 mg/dL [facility] Comment: Interpretive Data Fasting glucose >/= [...] 2022. Calcium 7.5(L) 8.5 - 10.3 mg/dL [facility] Blood 11/02/2024 4:06 PM CDT 11/02/2024 4:29 PM CDT Mar George MD LAB BLOOD OR DERABLES Final Result [facility] Department [place] [address] * eGFR (11/02/2024 7:53 AM CDT) Pathologist [facility] [place] eGFR >90 >=60 mL/min/1. 73 m2 Comment: [...] MD LAB BLOOD OR DERABLES Final Result [facility] [place] [address] * (ABNORMAL) CBC without differential (11/02/2024 7:53 AM CDT) [facility] WBC 3.44(L) 3.80 - 9.90 K/cumm Hgb 10.0(L) 11.9 - 15.5 g/dL [facility] Hct 29.2(L) 35.6 - 45.5 % [facility] Plt 120(L) 150 - 400 K/cumm [facility] MPV 11.9 9.1 - 12.3 fL [facility] RBC 2.88(L) 3.90 - 5.20 M/cumm [facility] MCV 101.4(H) 81.3 - 96.4 fL [facility] MCH 34.7(H) 27.1 - 33.3 pg [facility] MCHC 34.2 32.3 - 35.7 g/dL [facility] RDW CV 15.0(H) 11.1 - 14.9 % [facility] RDW SD 54.9(H) 35.7 - 48.1 fL [facility] NRBC abs 0.00 0.00 - 0.01 K/cumm [facility] Blood 11/02/2024 7:53 AM CDT 11/02/2024 8:07 AM CDT Mar George MD LAB BLOOD OR DERABLES Final Result Performing Organization Address City/[facility]/ZIP Co de Phone Number [facility] [place] [address] * Phosphorus (11/02/2024 7:53 AM CDT) Phosphorus, pl 2.7 2.3 - 4.5 mg/dL Comment:Hemolyzed; result ma y be falsely elevated Blood 11/02/2024 7:53 AM CDT 11/02/2024 8:07 AM CDT Mar George MD LAB BLOOD OR DERABLES Final Result [facility] [place] [address] * Magnesium (11/02/2024 7:53 AM CDT) Magnesium 2.1 1.4 - 2.5 mg/dL Blood 11/02/2024 7:53 AM CDT 11/02/2024 8:07 AM CDT Mar George MD LAB BLOOD OR DERABLES Final Result Performing Organization Address [facility] de Phone Number [facility] [place] [address] * (ABNORMAL) Hepatic function panel (11/02/2024 7:53 AM CDT) Bilirubin, total 0.9 0.1 - 1.2 mg/dL Bilirubin, direct See Comment 0.1 - 0.3 mg/dL [facility] Comment: Credited; Hemolyzed Specimen Reviewed Protein, pl 4.9(L) 6.5 - 8.5 g/dL [facility] Albumin 2.1(L) 3.5 - 5.0 g/dL [facility] Alk phos 137(H) 40 - 130 Units/L [facility] Comment:Hemolyzed; result ma y be falsely decreased ALT See Comment 7 - 45 Units/L [facility] Comment: Credited; Hemolyzed Specimen Reviewed AST See Comment 10 - 45 Units/L [facility] Comment: Credited; Hemolyzed Specimen Reviewed Blood 11/02/2024 7:53 AM CDT 11/02/2024 8:07 AM CDT Mar George MD LAB BLOOD OR DERABLES Final Result Performing Organization Address [facility] de Phone Number [facility] Department [place] [address] * (ABNORMAL) Basic metabolic panel (11/02/2024 7:53 AM CDT) Pathologist [facility] [place] Sodium 133(L) 135 - 145 mmol/L Potassium, pl See Comment 3.3 - 4.9 mmol/L [facility] Comment: Credited; Hemolyzed Specimen Repeated and Verified Chloride 100 97 - 110 mmol/L [facility] CO2 28 22 - 32 mmol/L [facility] Anion gap 5 2 - 15 mmol/L [facility] BUN 10 6 - 25 mg/dL [facility] Creatinine 0.62 0.60 - 1.10 mg/dL [facility] Glucose 105 70 - 199 mg/dL [facility] Comment: Interpretive Data Fasting glucose >/= [...] 2022. Calcium 8.2(L) 8.5 - 10.3 mg/dL [facility] Blood 11/02/2024 7:53 AM CDT 11/02/2024 8:07 AM CDT us Mar George MD LAB BLOOD OR DERABLES Final Result [facility] [place] [address] * ECG 12 lead (11/02/2024 6:38 AM CDT) Pathologist [facility] [place] Ventricular Rate EKG/Min 78 BPM [facility] Atrial Rate 78 BPM [facility] [place]-Interval (MSEC) 122 ms [facility] QRS-Interval (MSEC) 66 ms [facility] QT-Interval (MSEC) 412 ms [facility] QTc 469 ms [facility] P [place] 47 degrees [facility] R [place] 41 degrees [facility] T [place] 33 degrees [facility] Diagnosis Normal sinus rhythm Low voltage: consider pericardial effusions, pulmonary disease, pleural effusion, obesity or infiltrative or dilated cardiomyop Nonspecific T wave abnormality Abnormal ECG When compared with ECG of 01-NOV-2024 06:33, (unconfirmed) No significant change was found Confirmed by BILLY CHACKO M.D ([id number]) on 11/02/2024 1:01:09 PM [facility] 11/02/2024 6:38 AM CDT 11/02/2024 1:01 PM CDT Juliano Arredondo MD ECG ORDERABLES Fin al Result [facility] * eGFR (11/01/2024 11:50 PM CDT) eGFR [...] LAB BLOOD OR DERABLES Final Result [facility] [place] [address] * Phosphorus (11/01/2024 11:50 PM CDT) Phosphorus, pl 2.4 2.3 - 4.5 mg/dL Blood 11/01/2024 11:5 0 PM CDT 11/02/2024 1:50 AM CDT Mar George MD LAB BLOOD OR DERABLES Final Result [facility] [place] [address] * (ABNORMAL) Magnesium (11/01/2024 11:50 PM CDT) Pathologist [facility] [place] Magnesium 3.2(H) 1.4 - 2.5 mg/dL Comment:Reviewed Blood 11/01/2024 11:5 0 PM CDT 11/02/2024 1:50 AM CDT Mar George MD LAB BLOOD OR DERABLES Final Result Performing Organization Address [facility] Co de Phone Number [facility] [place] [address] * (ABNORMAL) Basic metabolic panel (11/01/2024 11:50 PM CDT) Pathologist [facility] [place] Sodium 136 135 - 145 mmol/L Potassium, pl 3.5 3.3 - 4.9 mmol/L [facility] Chloride 99 97 - 110 mmol/L [facility] CO2 28 22 - 32 mmol/L [facility] Anion gap 9 2 - 15 mmol/L [facility] BUN 11 6 - 25 mg/dL [facility] Creatinine 0.69 0.60 - 1.10 mg/dL [facility] Glucose 86 70 - 199 mg/dL [facility] Comment: Interpretive Data Fasting glucose >/= [...] 2022. Calcium 7.7(L) 8.5 - 10.3 mg/dL [facility] Blood 11/01/2024 11:5 0 PM CDT 11/02/2024 1:50 AM CDT Result [facility] Mar George MD LAB BLOOD OR DERABLES Final Result Performing Organization Address [facility] Co de Phone Number [facility] [place] [address] * (ABNORMAL) Copper, serum (11/01/2024 8:27 PM CDT) Copper 64(L) 77 - 206 mcg/dL [facility] Comment: ADDITIONAL INFORMATION This test was developed and its performance characteristics determined by [facility] in a manner consistent with CLIA requirements. This test has not been cleared or approved by the U.S. Food and Drug Administration. Test Performed by: [facility] [place] [address] Yard Attendant: Kimberley Hurtado Ph.D.; CLIA# [id number] Blood 11/01/2024 8:27 PM CDT 11/01/2024 10:06 PM CDT Narrative [facility] - 11/05/2024 11:58 AM CDT sent 2.0 mls metal free serum Evonne Baer MD LAB BLOOD ORDERABLES Krystyna l Result Performing Organization Address City/[facility] Co de Phone Number [facility] [place] [address] [facility] * (ABNORMAL) CBC without differential (11/01/2024 8:27 PM CDT) WBC 3.66(L) 3.80 - 9.90 K/cumm Hgb 9.3(L) 11.9 - 15.5 g/dL [facility] Hct 27.1(L) 35.6 - 45.5 % [facility] Plt 83(L) 150 - 400 K/cumm [facility] MPV 11.7 9.1 - 12.3 fL [facility] RBC 2.69(L) 3.90 - 5.20 M/cumm [facility] MCV 100.7(H) 81.3 - 96.4 fL [facility] MCH 34.6(H) 27.1 - 33.3 pg [facility] MCHC 34.3 32.3 - 35.7 g/dL [facility] RDW CV 15.1(H) 11.1 - 14.9 % [facility] RDW SD 55.7(H) 35.7 - 48.1 fL [facility] NRBC abs 0.00 0.00 - 0.01 K/cumm [facility] Blood 11/01/2024 8:27 PM CDT 11/01/2024 9:48 PM CDT Mar George MD LAB BLOOD OR DERABLES Final Result [facility] [place] [address] * Immature platelet fraction (11/01/2024 5:28 PM CDT) [facility] IPF 6.6 1.6 - 10.1 % Blood 11/01/2024 5:28 PM CDT 11/01/2024 6:47 PM CDT Mar George MD LAB BLOOD OR DERABLES Final Result [facility] [place] [address] * eGFR (11/01/2024 5:28 PM CDT) [facility] eGFR >90 >=60 mL/min/1. 73 m2 Comment: [...] MD LAB BLOOD OR DERABLES Final Result [facility] [place] [address] * (ABNORMAL) Differential, auto (11/01/2024 5:28 PM CDT) Neutrophil abs 1.02(L) 1.50 - 6.50 K/cumm Imm gran abs 0.01 0.00 - 0.10 K/cumm [facility] Lymphocyte abs 0.87 0.80 - 3.30 K/cumm [facility] Monocyte abs 0.03(L) 0.20 - 0.80 K/cumm [facility] Eosinophil abs 0.01 0.00 - 0.50 K/cumm [facility] Basophil abs 0.01 0.00 - 0.10 K/cumm [facility] Neutrophil pct 52.4 % [facility] Comment: Interpretive Data Percent cell count reference ranges are not reported, since discordance with absolute values may lead to misinterpretation of CBC data. Current Interpretive Data was last revised on 2017. Imm gran pct 0.5 % [facility] Comment: Interpretive Data Percent cell count reference ranges are not reported, since discordance with absolute values may lead to misinterpretation of CBC data. Current Interpretive Data was last revised on 2017. Lymphocyte pct 44.6 % [facility] Comment: Interpretive Data Percent cell count reference ranges are not reported, since discordance with absolute values may lead to misinterpretation of CBC data. Current Interpretive Data was last revised on 2017. Monocyte pct 1.5 % [facility] Comment: Interpretive Data Percent cell count reference ranges are not reported, since discordance with absolute values may lead to misinterpretation of CBC data. Current Interpretive Data was last revised on 2017. Eosinophil pct 0.5 % [facility] Comment: Interpretive Data Percent cell count reference ranges are not reported, since discordance with absolute values may lead to misinterpretation of CBC data. Current Interpretive Data was last revised on 2017. Basophil pct 0.5 % [facility] Comment: Interpretive Data Percent cell count reference ranges are not reported, since discordance with absolute values may lead to misinterpretation of CBC data. Current Interpretive Data was last revised on 2017. Blood 11/01/2024 5:28 PM CDT 11/01/2024 6:44 PM CDT us Mar George MD LAB BLOOD OR DERABLES Final Result [facility] [place] [address] * (ABNORMAL) CBC with auto differential (11/01/2024 5:28 PM CDT) WBC 1.98(L) 3.80 - 9.90 K/cumm Hgb 9.8(L) 11.9 - 15.5 g/dL [facility] Hct 28.5(L) 35.6 - 45.5 % [facility] Plt 21(C) 150 - 400 K/cumm [facility] Comment:No clot detected in sample. Platelet count confirmed by additional testing. Critical platelet count threshold determined by patient location: Outpatient:<50 K/cumm , Inpatient adults:<20 K/cumm , Inpatient pediatric:<25 K/cumm, BMT service:<10 K/cumm MPV 12.2 9.1 - 12.3 fL [facility] RBC 2.81(L) 3.90 - 5.20 M/cumm [facility] MCV 101.4(H) 81.3 - 96.4 fL [facility] MCH 34.9(H) 27.1 - 33.3 pg [facility] MCHC 34.4 32.3 - 35.7 g/dL [facility] RDW CV 15.0(H) 11.1 - 14.9 % [facility] RDW SD 56.0(H) 35.7 - 48.1 fL [facility] NRBC abs 0.00 0.00 - 0.01 K/cumm [facility] Blood 11/01/2024 5:28 PM CDT 11/01/2024 6:44 PM CDT us Mar George MD LAB BLOOD OR DERABLES Final Result [facility] [place] [address] * Phosphorus (11/01/2024 5:28 PM CDT) Pathologist [facility] [place] Phosphorus, pl 3.0 2.3 - 4.5 mg/dL Blood 11/01/2024 5:28 PM CDT 11/01/2024 6:43 PM CDT Mar George MD LAB BLOOD OR DERABLES Final Result [facility] [place] [address] * Magnesium (11/01/2024 5:28 PM CDT) Pathologist [facility] [place] Magnesium 1.5 1.4 - 2.5 mg/dL Blood 11/01/2024 5:28 PM CDT 11/01/2024 6:43 PM CDT Mar George MD LAB BLOOD OR DERABLES Final Result [facility] [place] [address] * (ABNORMAL) Basic metabolic panel (11/01/2024 5:28 PM CDT) Pathologist [facility] [place] Sodium 140 135 - 145 mmol/L Potassium, pl 3.7 3.3 - 4.9 mmol/L [facility] Chloride 102 97 - 110 mmol/L [facility] CO2 29 22 - 32 mmol/L [facility] Anion gap 9 2 - 15 mmol/L [facility] BUN 11 6 - 25 mg/dL [facility] Creatinine 0.78 0.60 - 1.10 mg/dL [facility] Glucose 85 70 - 199 mg/dL [facility] Comment: Interpretive Data Fasting glucose >/= [...] 2022. Calcium 7.6(L) 8.5 - 10.3 mg/dL [facility] Blood 11/01/2024 5:28 PM CDT 11/01/2024 6:43 PM CDT Mar George MD LAB BLOOD OR DERABLES Final Result Performing Organization Address City/[facility]/ZIP Co de Phone Number [facility] [place] [address] * CT Chest W Contrast (11/01/2024 2:24 [...] difficile testing Stool (11/01/2024 11:33 AM CDT) [facility] Result Negative Negative Toxin Result Negative Negative [facility] C. diff result Negative, free toxin Negative, free toxin [facility] C. diff interp Negative for toxigenic Clostridioides (Clostridium) difficile. Analysis was performed using a glutamate dehydrogenase antigen detection assay combined with a C. difficile toxin detection assay. [facility] Stool 11/01/2024 11:3 3 AM CDT 11/01/2024 1:15 PM CDT Mar George MD LAB MICROBIOLOGY - GENERAL ORDERABLES Final Result Performing Organization Address [facility] de Phone Number [facility] [place] [address] * (ABNORMAL) Infection Prevention VRE Culture Stool (11/01/2024 11:33 AM CDT) Report Final Report: Enterococcus species, vancomycin resistant (.) Organism ENTEROCOCCUS SPECIES, VANCOMYCIN RESISTANT [facility] Stool 11/01/2024 11:3 3 AM CDT 11/01/2024 2:56 PM CDT Narrative [facility] - 11/03/2024 10:12 PM CDT Surveillance culture for Infection Prevention purposes only; results indicate colonization, not infection requiring treatment. Testing performed by [facility] ([phone]). Mar George MD LAB MICROBIOLOGY - GENERAL ORDERABLES Final Result Performing Organization Address [facility]/ZIP Co de Phone Number [facility] [place] [address] * TRANSTHORACIC ECHO (TTE) COMPLETE W DOPPLER/CF W CONTRAST (11/01/2024 10:52 AM CDT) Anatomical Region Laterality Modality Ultrasound 11/01/2024 10:0 2 AM CDT Narrative 11/01/2024 12:28 PM CDT [facility] [place] [address] Transthoracic Echocardiographic Report ADDENDUM Patient Name: HAYLEY LEÓN L : 1990 (34y 8m) Gender: F Study Date: 11/01/2024 10:02:50 AM Ht(Inch): 61 Wt(Lb): 87.96 BSA: 1.31 [employer] Machine Operator: Sofia Campos RDCS Location: [id number] Order Provider: ANGELA RAMIREZ Heart Rate: 90 [...] Procedure Note Gustabo Mcdaniels MD - 11/01/2024 [facility] [place] [address] Transthoracic Echocardiographic Report ADDENDUM Patient Name: HAYLEY LEÓN L : 1990 (34y 8m) Gender: F Study Date: 11/01/2024 10:02:50 AM Ht(Inch): 61 Wt(Lb): 87.96 BSA: 1.31 [employer] Machine Operator: Sofia Campos RDCS Location: [id number] Order Provider:ANGELA RAMIREZ Heart Rate: 90 BMI: [...] LA Length 4C 3.24 cm MV Decel [id number] msec [ 104.00 - 258.00 ] LA [...] OR DERABLES Final Result Performing Organization Address [facility] Co de Phone Number [facility] [place] [address] * Phosphorus (11/01/2024 9:03 AM CDT) Phosphorus, pl 3.3 2.3 - 4.5 mg/dL Blood 11/01/2024 9:03 AM CDT 11/01/2024 10:23 AM CDT Mar George MD LAB BLOOD OR DERABLES Final Result Performing Organization Address [facility] [facility] de Phone Number [facility] [place] [address] * Magnesium (11/01/2024 9:03 AM CDT) Magnesium 2.0 1.4 - 2.5 mg/dL Blood 11/01/2024 9:03 AM CDT 11/01/2024 10:23 AM CDT Mar George MD LAB BLOOD OR DERABLES Final Result Performing Organization Address [facility] [address] * (ABNORMAL) Hepatic function panel (11/01/2024 9:03 AM CDT) Bilirubin, total 1.2 0.1 - 1.2 mg/dL Bilirubin, direct 0.7(H) 0.1 - 0.3 mg/dL [facility] Protein, pl 5.4(L) 6.5 - 8.5 g/dL [facility] Albumin 2.7(L) 3.5 - 5.0 g/dL [facility] Alk phos 133(H) 40 - 130 Units/L [facility] ALT 107(H) 7 - 45 Units/L [facility] AST 308(H) 10 - 45 Units/L [facility] Blood 11/01/2024 9:03 AM CDT 11/01/2024 10:23 AM CDT Mar George MD LAB BLOOD OR DERABLES Final Result [facility] [place] [address] * (ABNORMAL) Basic metabolic panel (11/01/2024 9:03 AM CDT) Sodium 143 135 - 145 mmol/L Potassium, pl 3.7 3.3 - 4.9 mmol/L [facility] Chloride 103 97 - 110 mmol/L [facility] CO2 27 22 - 32 mmol/L [facility] Anion gap 13 2 - 15 mmol/L [facility] BUN 11 6 - 25 mg/dL [facility] Creatinine 0.80 0.60 - 1.10 mg/dL [facility] Glucose 73 70 - 199 mg/dL [facility] Comment: Interpretive Data Fasting glucose >/= [...] 2022. Calcium 8.2(L) 8.5 - 10.3 mg/dL [facility] Blood 11/01/2024 9:03 AM CDT 11/01/2024 10:23 AM CDT us Mar George MD LAB BLOOD OR DERABLES Final Result [facility] [place] [address] * ECG 12 lead (11/01/2024 6:33 AM CDT) Ventricular Rate EKG/Min 80 BPM [facility] Atrial Rate 80 BPM [facility] [place]-Interval (MSEC) 108 ms [facility] QRS-Interval (MSEC) 50 ms [facility] QT-Interval (MSEC) 420 ms [facility] QTc 484 ms [facility] P [place] 79 degrees [facility] R [place] 55 degrees [facility] T [place] 59 degrees [facility] Diagnosis Sinus rhythm with short [place] Low voltage QRS Nonspecific ST and T wave abnormality Abnormal ECG Confirmed by Arslan LANG [facility] ([id number]) on 11/02/2024 8:44:45 AM [facility] 11/01/2024 6:33 AM CDT 11/02/2024 8:44 AM CDT us Juliano Arredondo MD ECG ORDERABLES Fin al Result Performing Organization Address City/[facility]/ZIP Co de Phone Number [facility] * eGFR (11/01/2024 12:24 AM CDT) eGFR [...] OR DERABLES Final Result Performing Organization Address City/[facility] Co de Phone Number [facility] [place] [address] * (ABNORMAL) Phosphorus (11/01/2024 12:24 AM CDT) Phosphorus, pl 1.4(L) 2.3 - 4.5 mg/dL Blood 11/01/2024 12:2 4 AM CDT 11/01/2024 12:43 AM CDT Mar George MD LAB BLOOD OR DERABLES Final Result Performing Organization Address [facility] Co de Phone Number [facility] [place] [address] * Magnesium (11/01/2024 12:24 AM CDT) Magnesium 2.2 1.4 - 2.5 mg/dL Blood 11/01/2024 12:2 4 AM CDT 11/01/2024 12:43 AM CDT Mar George MD LAB BLOOD OR DERABLES Final Result Performing Organization Address City/[facility] Co de Phone Number [facility] [place] [address] * Basic metabolic panel (11/01/2024 12:24 AM CDT) Pathologist [facility] [place] Sodium 139 135 - 145 mmol/L Potassium, pl 4.3 3.3 - 4.9 mmol/L [facility] Comment:Hemolyzed; Potassium value may be falsely elevated by as much as 0.6-1.0 mmol/L. Suggest redraw and reanalysis. Chloride 105 97 - 110 mmol/L [facility] CO2 26 22 - 32 mmol/L [facility] Anion gap 8 2 - 15 mmol/L [facility] BUN 10 6 - 25 mg/dL [facility] Creatinine 0.80 0.60 - 1.10 mg/dL [facility] Glucose 88 70 - 199 mg/dL [facility] Comment: Interpretive Data Fasting glucose >/= [...] 2022. Calcium 8.5 8.5 - 10.3 mg/dL [facility] Blood 11/01/2024 12:2 4 AM CDT 11/01/2024 12:43 AM CDT Mar George MD LAB BLOOD OR DERABLES Final Result [facility] [place] [address] * Norovirus PCR Stool (10/31/2024 5:27 PM CDT) [facility] Norovirus GI RNA Not Detected Not Detected [facility] Norovirus GII RNA Not Detected Not Detected [facility] Comment: Interpretive data: Testing performed at the [facility] using the [employer] Xpert Norovirus Assay. This assay uses nucleic [...] MICROBIOLOGY - GENERAL ORDERABLES Final Result [facility] [place] [address] [facility] * eGFR (10/31/2024 4:26 PM CDT) eGFR [...] PM CDT 10/31/2024 6:04 PM CDT Result [facility] Mar George MD LAB BLOOD OR DERABLES Final Result Performing Organization Address [facility] de Phone Number SHONA [facility] [place] [address] * (ABNORMAL) Vitamin A (10/31/2024 4:26 PM CDT) Pathologist [facility] Vitamin A 22.1(L) 32.5 - 78.0 mcg/dL [facility] Comment: ADDITIONAL INFORMATION This test was developed and its performance characteristics determined by [facility] in a manner consistent with CLIA requirements. This test has not been cleared or approved by the U.S. Food and Drug Administration. Test Performed by: [facility] [place] [address] Yard Attendant: Kimberley Hurtado Ph.D.; CLIA# [id number] Blood 10/31/2024 4:26 PM CDT 10/31/2024 6:25 PM CDT Result [facility] Mar George MD LAB BLOOD OR DERABLES Final Result Performing Organization Address [facility] de Phone Number [facility] [place] [address] [facility] * (ABNORMAL) Vitamin K (10/31/2024 4:26 PM CDT) Pathologist [facility] Phylloquinone (Vit K) 0.04(L) 0.10 - 2.20 ng/mL [facility] Comment: ADDITIONAL INFORMATION This test was developed and its performance characteristics determined by [facility] in a manner consistent with CLIA requirements. This test has not been cleared or approved by the U.S. Food and Drug Administration. Test Performed by: [facility] [address] [place] [address] Yard Attendant: Kimberley Hurtado Ph.D.; CLIA# [id number] Blood 10/31/2024 4:26 PM CDT 10/31/2024 6:27 PM CDT Mar George MD LAB BLOOD OR DERABLES Final Result Performing Organization Address City/[facility]/ZIP Co de Phone Number [facility] [place] [address] [facility] * (ABNORMAL) Vitamin D 25 hydroxy (10/31/2024 4:26 PM CDT) Vitamin D 25-OH 9(L) 30 - 80 ng/mL Blood 10/31/2024 4:26 PM CDT 10/31/2024 6:04 PM CDT Result [facility] Mar George MD LAB BLOOD OR DERABLES Final Result Performing Organization Address City/[facility] Co de Phone Number [facility] Department [place] [address] * (ABNORMAL) Phosphorus (10/31/2024 4:26 PM CDT) Phosphorus, pl 1.5(L) 2.3 - 4.5 mg/dL Blood 10/31/2024 4:26 PM CDT 10/31/2024 6:04 PM CDT Mar George MD LAB BLOOD OR DERABLES Final Result Performing Organization Address City/[facility]/ZIP Co de Phone Number [facility] [place] [address] * Magnesium (10/31/2024 4:26 PM CDT) [facility] Magnesium 1.8 1.4 - 2.5 mg/dL Blood 10/31/2024 4:26 PM CDT 10/31/2024 6:04 PM CDT Mar George MD LAB BLOOD OR DERABLES Final Result [facility] [place] [address] * Basic metabolic panel (10/31/2024 4:26 PM CDT) [facility] Sodium 142 135 - 145 mmol/L Potassium, pl 4.3 3.3 - 4.9 mmol/L [facility] Chloride 103 97 - 110 mmol/L [facility] CO2 30 22 - 32 mmol/L [facility] Anion gap 9 2 - 15 mmol/L [facility] BUN 9 6 - 25 mg/dL [facility] Creatinine 0.94 0.60 - 1.10 mg/dL [facility] Glucose 76 70 - 199 mg/dL [facility] Comment: Interpretive Data Fasting glucose >/= [...] 2022. Calcium 9.7 8.5 - 10.3 mg/dL [facility] Blood 10/31/2024 4:26 PM CDT 10/31/2024 6:04 PM CDT us Mar George MD LAB BLOOD OR DERABLES Final Result [facility] BACK [facility] [place] [address] * XR Abdomen AP 1 Vw With [...] 8:47 AM CDT) ABO Rh A Positive [facility] OTHER 10/31/2024 8:47 AM CDT 10/31/2024 10:36 AM CDT Mar George MD LAB BLOOD OR DERABLES Final Result [facility] [place] [address] [facility] * Respiratory pathogen panel Nasopharyngeal (10/31/2024 8:47 AM CDT) [facility] Influenza A RNA Not Detected Not Detected Influenza B RNA Not Detected Not Detected [facility] RSV RNA Not Detected Not Detected [facility] COVID-19 RNA Not Detected Not Detected [facility] Coronavirus 229E RNA Not Detected Not Detected [facility] Coronavirus HKU1 RNA Not Detected Not Detected [facility] Coronavirus NL63 RNA Not Detected Not Detected [facility] Coronavirus OC43 RNA Not Detected Not Detected [facility] Adenovirus DNA Not Detected Not Detected [facility] Metapneumovirus RNA Not Detected Not Detected [facility] Rhinovirus/Enterov irus RNA Not Detected Not Detected [facility] Parainfluenza 1 RNA Not Detected Not Detected [facility] Parainfluenza 2 RNA Not Detected Not Detected [facility] Parainfluenza 3 RNA Not Detected Not Detected [facility] Parainfluenza 4 RNA Not Detected Not Detected [facility] B. pertussis DNA Not Detected Not Detected [facility] B. parapertussis DNA Not Detected Not Detected [facility] C. pneumoniae DNA Not Detected Not Detected [facility] M. pneumoniae DNA Not Detected Not Detected [facility] Nasopharyngeal 10/31/2024 8: 47 AM CDT 10/31/2024 9:05 AM CDT Narrative [facility] - 10/31/2024 10:37 AM CDT Is the Patient experiencing symptoms consistent with COVID?->Yes Surveillance testing for transplant patient?->No Interpretive Data The [employer] FilmArray Respiratory Panel (RP2.1) assay is a [...] assay has FDA clearance for testing of [employer] swabs. The performance of additional specimen types has been assessed by the performing laboratory. The performance characteristics of this assay have been determined by [facility] Infect[facility]. Current interpretive data was last revised on 22. us Mar George MD LAB MICROBIOLOGY - GENERAL ORDERABLES Final Result SHONA [facility] [place] [address] * eGFR (10/31/2024 7:51 AM CDT) Pathologist [facility] eGFR >90 >=60 mL/min/1. 73 m2 Comment: [...] MD LAB BLOOD ORDERABLES Fin al Result [facility] [place] [address] * Differential, auto (10/31/2024 7:51 AM CDT) Pathologist [facility] Neutrophil abs 4.89 1.50 - 6.50 K/cumm Imm gran abs 0.06 0.00 - 0.10 K/cumm [facility] Lymphocyte abs 0.81 0.80 - 3.30 K/cumm [facility] Monocyte abs 0.35 0.20 - 0.80 K/cumm [facility] Eosinophil abs 0.15 0.00 - 0.50 K/cumm [facility] Basophil abs 0.03 0.00 - 0.10 K/cumm [facility] Neutrophil pct 77.6 % [facility] Comment: Interpretive Data Percent cell count reference ranges are not reported, since discordance with absolute values may lead to misinterpretation of CBC data. Current Interpretive Data was last revised on 2017. Imm gran pct 1.0 % [facility] Comment: Interpretive Data Percent cell count reference ranges are not reported, since discordance with absolute values may lead to misinterpretation of CBC data. Current Interpretive Data was last revised on 2017. Lymphocyte pct 12.9 % [facility] Comment: Interpretive Data Percent cell count reference ranges are not reported, since discordance with absolute values may lead to misinterpretation of CBC data. Current Interpretive Data was last revised on 2017. Monocyte pct 5.6 % [facility] Comment: Interpretive Data Percent cell count reference ranges are not reported, since discordance with absolute values may lead to misinterpretation of CBC data. Current Interpretive Data was last revised on 2017. Eosinophil pct 2.4 % [facility] Comment: Interpretive Data Percent cell count reference ranges are not reported, since discordance with absolute values may lead to misinterpretation of CBC data. Current Interpretive Data was last revised on 2017. Basophil pct 0.5 % [facility] Comment: Interpretive Data Percent cell count reference ranges are not reported, since discordance with absolute values may lead to misinterpretation of CBC data. Current Interpretive Data was last revised on 2017. Blood 10/31/2024 7:51 AM CDT 10/31/2024 8:12 AM CDT us Angela Ramirez MD LAB BLOOD ORDERABLES Fin al Result SHONA [facility] Department [place] [address] * Critical Result Callback Chemistry (10/31/2024 7:51 AM CDT) Date Notified [id number] Time Notified 899 SHONA BACK TestName Potassium Plas SHONA RAMIREZ Called/Read Back Suni Romy BACK Credentials RN SHONA RAMIREZ Called By TP SHONA BACK Blood 10/31/2024 7:51 AM CDT 10/31/2024 8:14 AM CDT us Angela Ramirez MD LAB BLOOD ORDERABLES Fin al Result [facility] [place] [address] * (ABNORMAL) Calcium, ionized (10/31/2024 7:51 AM CDT) [facility] Calcium, Ionized 4.37(L) 4.50 - 5.10 mg/dL Blood 10/31/2024 7:51 AM CDT 10/31/2024 8:12 AM CDT us Mar George MD LAB BLOOD OR DERABLES Final Result Performing Organization Address [facility] Co de Phone Number [facility] [place] [address] * (ABNORMAL) CBC with auto differential (10/31/2024 7:51 AM CDT) [facility] WBC 6.29 3.80 - 9.90 K/cumm Hgb 11.4(L) 11.9 - 15.5 g/dL [facility] Hct 31.9(L) 35.6 - 45.5 % [facility] Plt 105(L) 150 - 400 K/cumm [facility] MPV 11.2 9.1 - 12.3 fL [facility] RBC 3.29(L) 3.90 - 5.20 M/cumm [facility] MCV 97.0(H) 81.3 - 96.4 fL [facility] MCH 34.7(H) 27.1 - 33.3 pg [facility] MCHC 35.7 32.3 - 35.7 g/dL [facility] RDW CV 15.0(H) 11.1 - 14.9 % [facility] RDW SD 53.2(H) 35.7 - 48.1 fL [facility] NRBC abs 0.00 0.00 - 0.01 K/cumm [facility] Blood 10/31/2024 7:51 AM CDT 10/31/2024 8:12 AM CDT Angela Ramierz MD LAB BLOOD ORDERABLES Fin al Result Performing Organization Address [facility]/ZIP Co de Phone Number [facility] [place] [address] * Type and screen (10/31/2024 7:51 AM CDT) ABO Rh A Positive Zach, indirect Negative [facility] Blood 10/31/2024 7:51 AM CDT 10/31/2024 8:20 AM CDT Narrative [facility] - 10/31/2024 9:24 AM CDT Has the patient had Daratumumab or Isatuximab in the past 6 months?->Unknown Mar George MD LAB BLOOD BA NK TEST ORDERABLES Final Result Performing Organization Address [facility] [address] * Infection Prevention MRSA Only (Staphylococcus aureus) Culture Nasal (10/31/2024 7:51 AM CDT) Report Final Report: Negative Nasal 10/31/2024 7:51 AM CDT 10/31/2024 8:13 AM CDT Narrative [facility] - 11/01/2024 9:38 AM CDT Testing performed by [facility] ([phone]). Mar George MD LAB MICROBIOLOGY - GENERAL ORDERABLES Final Result Performing Organization Address City/[facility] Co de Phone Number [facility] [place] [address] * hCG, blood, quantitative (10/31/2024 7:51 AM [...] OR DERABLES Final Result Performing Organization Address City/[facility] Co de Phone Number [facility] [place] [address] * Phosphorus (10/31/2024 7:51 AM CDT) [facility] Phosphorus, pl 2.4 2.3 - 4.5 mg/dL Blood 10/31/2024 7:5 1 AM CDT 10/31/2024 8:14 AM CDT Angela Ramirez MD LAB BLOOD ORDERABLES Fin al Result Performing Organization Address [facility] de Phone Number [facility] [place] [address] * Magnesium (10/31/2024 7:51 AM CDT) [facility] Magnesium 2.1 1.4 - 2.5 mg/dL Blood 10/31/2024 7:51 AM CDT 10/31/2024 8:14 AM CDT Angela Ramirez MD LAB BLOOD ORDERABLES Fin al Result Performing Organization Address City/[facility] Co de Phone Number [facility] [place] [address] * (ABNORMAL) Hepatic function panel (10/31/2024 7:51 AM CDT) Pathologist [facility] Bilirubin, total 2.0(H) 0.1 - 1.2 mg/dL Bilirubin, direct 0.9(H) 0.1 - 0.3 mg/dL [facility] Comment:Reviewed Protein, pl 5.5(L) 6.5 - 8.5 g/dL [facility] Albumin 3.0(L) 3.5 - 5.0 g/dL [facility] Alk phos 127 40 - 130 Units/L [facility] ALT 69(H) 7 - 45 Units/L [facility] Comment:Reviewed AST 129(H) 10 - 45 Units/L [facility] Comment:Reviewed Blood 10/31/2024 7:51 AM CDT 10/31/2024 8:14 AM CDT Angela Ramirez MD LAB BLOOD ORDERABLES Fin al Result [facility] [place] [address] * (ABNORMAL) Basic metabolic panel (10/31/2024 7:51 AM CDT) [facility] Sodium 144 135 - 145 mmol/L Potassium, pl 2.5(C) 3.3 - 4.9 mmol/L [facility] Comment:Repeated and Verifie d Chloride 100 97 - 110 mmol/L [facility] CO2 35(H) 22 - 32 mmol/L [facility] Anion gap 9 2 - 15 mmol/L [facility] BUN 8 6 - 25 mg/dL [facility] Creatinine 0.80 0.60 - 1.10 mg/dL [facility] Glucose 116 70 - 199 mg/dL [facility] Comment: Interpretive Data Fasting glucose >/= [...] 2022. Calcium 8.4(L) 8.5 - 10.3 mg/dL [facility] Blood 10/31/2024 7:51 AM CDT 10/31/2024 8:14 AM CDT us Angela Ramirez MD LAB BLOOD ORDERABLES Fin al Result Performing Organization Address [facility] Co de Phone Number [facility] [place] [address] * (ABNORMAL) Troponin I high-sensitivity 2-hour (10/31/2024 5:13 AM CDT) Trop I hs 47(H) <=17 ng/L Comment: Interpretive Data For further hscTnI resources including the diagnostic algorithm and an aid in interpretation, copy and paste this link: https://bjhlab.testcatalog.org/show/[email or web address] Current Interpretive Data last revised 2020. Trop I hs delta -9 ng/L [facility] Trop I hs interp Equivocal [facility] Blood 10/31/2024 5:13 AM CDT 10/31/2024 5:24 AM CDT us Bro Blackwell MD LAB BLOOD ORDERABLES Final R esult Performing Organization Address [facility]/ZIP Co de Phone Number [facility] [place] [address] * (ABNORMAL) Potassium, whole blood (10/31/2024 5:13 AM CDT) Potassium, bld 2.6(L) 3.3 - 4.9 mmol/L Blood 10/31/2024 5:13 AM CDT 10/31/2024 5:23 AM CDT us Bro Blackwell MD LAB BLOOD ORDERABLES Final R esult Performing Organization Address [facility] Co de Phone Number SHONA [facility] [place] [address] * (ABNORMAL) ECG 12-LEAD (10/31/2024 4:10 AM CDT) Narrative [facility] - 10/31/2024 4:10 AM CDT Angela [...] ORDERABLES Final Re sult Performing Organization Address [facility] Co de Phone Number [facility] * (ABNORMAL) Troponin I high-sensitivity [...] ORDERABLES Final R esult Performing Organization Address City/[facility] Co de Phone Number [facility] [place] [address] * eGFR (10/31/2024 3:14 AM CDT) Pathologist [facility] [place] eGFR >90 >=60 mL/min/1. 73 m2 Comment: [...] ORDERABLES Final R esult Performing Organization Address [facility] Co de Phone Number [facility] [place] [address] * (ABNORMAL) Differential, auto (10/31/2024 3:14 AM CDT) Pathologist [facility] Neutrophil abs 7.73(H) 1.50 - 6.50 K/cumm Imm gran abs 0.12(H) 0.00 - 0.10 K/cumm [facility] Lymphocyte abs 0.45(L) 0.80 - 3.30 K/cumm [facility] Monocyte abs 0.46 0.20 - 0.80 K/cumm [facility] Eosinophil abs 0.00 0.00 - 0.50 K/cumm [facility] Basophil abs 0.01 0.00 - 0.10 K/cumm [facility] Neutrophil pct 88.2 % [facility] Comment: Interpretive Data Percent cell count reference ranges are not reported, since discordance with absolute values may lead to misinterpretation of CBC data. Current Interpretive Data was last revised on 2017. Imm gran pct 1.4 % SH[facility] Comment: Interpretive Data Percent cell count reference ranges are not reported, since discordance with absolute values may lead to misinterpretation of CBC data. Current Interpretive Data was last revised on 2017. Lymphocyte pct 5.1 % [facility] Comment: Interpretive Data Percent cell count reference ranges are not reported, since discordance with absolute values may lead to misinterpretation of CBC data. Current Interpretive Data was last revised on 2017. Monocyte pct 5.2 % [facility] Comment: Interpretive Data Percent cell count reference ranges are not reported, since discordance with absolute values may lead to misinterpretation of CBC data. Current Interpretive Data was last revised on 2017. Eosinophil pct 0.0 % [facility] Comment: Interpretive Data Percent cell count reference ranges are not reported, since discordance with absolute values may lead to misinterpretation of CBC data. Current Interpretive Data was last revised on 2017. Basophil pct 0.1 % [facility] Comment: Interpretive Data Percent cell count reference ranges are not reported, since discordance with absolute values may lead to misinterpretation of CBC data. Current Interpretive Data was last revised on 2017. Blood 10/31/2024 3:14 AM CDT 10/31/2024 3:34 AM CDT us Bro Blackwell MD LAB BLOOD ORDERABLES Final R esult SHONA BACK [facility] [place] [address] * Thyroid Function [place] (10/31/2024 3:14 AM CDT) TSH 0.55 0.30 - 4.20 mcIUnit/mL Blood 10/31/2024 3:14 AM CDT 10/31/2024 3:34 AM CDT us Bro Blackwell MD LAB BLOOD ORDERABLES Final R esult Performing Organization Address City/[facility] Co de Phone Number [facility] [place] [address] * (ABNORMAL) Calcium, ionized (10/31/2024 3:14 AM CDT) [facility] Calcium, Ionized 4.09(L) 4.50 - 5.10 mg/dL Blood 10/31/2024 3:14 AM CDT 10/31/2024 3:29 AM CDT us Bro Blackwell MD LAB BLOOD ORDERABLES Final R esult Performing Organization Address City/[facility] de Phone Number [facility] Department [place] [address] * (ABNORMAL) CBC with auto differential (10/31/2024 3:14 AM CDT) [facility] WBC 8.77 3.80 - 9.90 K/cumm Hgb 12.2 11.9 - 15.5 g/dL [facility] Hct 33.1(L) 35.6 - 45.5 % [facility] Plt 111(L) 150 - 400 K/cumm [facility] MPV 11.1 9.1 - 12.3 fL [facility] RBC 3.51(L) 3.90 - 5.20 M/cumm [facility] MCV 94.3 81.3 - 96.4 fL [facility] MCH 34.8(H) 27.1 - 33.3 pg [facility] MCHC 36.9(H) 32.3 - 35.7 g/dL [facility] RDW CV 14.7 11.1 - 14.9 % [facility] RDW SD 50.9(H) 35.7 - 48.1 fL [facility] NRBC abs 0.00 0.00 - 0.01 K/cumm [facility] Blood 10/31/2024 3:14 AM CDT 10/31/2024 3:34 AM CDT us Bro Blackwell MD LAB BLOOD ORDERABLES Final R esult Performing Organization Address City/[facility] Co de Phone Number [facility] [place] [address] * Phosphorus (10/31/2024 3:14 AM CDT) Phosphorus, pl 2.7 2.3 - 4.5 mg/dL Comment:Hemolyzed; result ma y be falsely elevated Blood 10/31/2024 3:14 AM CDT 10/31/2024 3:34 AM CDT us Bro Blackwell MD LAB BLOOD ORDERABLES Final R esult Performing Organization Address City/[facility] Co de Phone Number [facility] [place] [address] * Magnesium (10/31/2024 3:14 AM CDT) Magnesium 2.4 1.4 - 2.5 mg/dL Blood 10/31/2024 3:14 AM CDT 10/31/2024 3:34 AM CDT us Bro Blackwell MD LAB BLOOD ORDERABLES Final R esult Performing Organization Address City/[facility] Co de Phone Number [facility] [place] [address] * (ABNORMAL) Hepatic function panel (10/31/2024 3:14 AM CDT) Bilirubin, total 2.2(H) 0.1 - 1.2 mg/dL Bilirubin, direct See Comment 0.1 - 0.3 mg/dL [facility] Comment:Credited; Hemolyzed Specimen Protein, pl 5.7(L) 6.5 - 8.5 g/dL [facility] Albumin 2.9(L) 3.5 - 5.0 g/dL [facility] Alk phos 123 40 - 130 Units/L [facility] Comment:Hemolyzed; result ma y be falsely decreased ALT See Comment 7 - 45 Units/L [facility] Comment:Credited; Hemolyzed Specimen AST See Comment 10 - 45 Units/L [facility] Comment:Credited; Hemolyzed Specimen Blood 10/31/2024 3:14 AM CDT 10/31/2024 3:34 AM CDT us Bro Blackwell MD LAB BLOOD ORDERABLES Final R esult [facility] [place] [address] * Basic metabolic panel (10/31/2024 3:14 AM CDT) Sodium 142 135 - 145 mmol/L Potassium, pl See Comment 3.3 - 4.9 mmol/L [facility] Comment:Credited; Hemolyzed Specimen Chloride 98 97 - 110 mmol/L [facility] CO2 31 22 - 32 mmol/L [facility] Anion gap 13 2 - 15 mmol/L [facility] BUN 7 6 - 25 mg/dL [facility] Creatinine 0.71 0.60 - 1.10 mg/dL [facility] Glucose 121 70 - 199 mg/dL [facility] Comment: Interpretive Data Fasting glucose >/= [...] 2022. 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 HISTORICAL RESULTS Comment: LMP: [facility] HISTORICAL RESULTS PREV. PAP: [facility] HISTORICAL RESULTS Comment:2011 PREV. BX: [facility] HISTORICAL RESULTS Comment:UNKNOWN SOURCE: [facility] HISTORICAL RESULTS Comment:Cervix, Endocervix STATEMENT OF ADEQUACY: [facility] HISTORICAL RESULTS Comment:Satisfactory for savana luation. Endocervical/transformation zone component present. INTERPRETATION/RES ULT: [facility] HISTORICAL RESULTS Comment:Negative for intraep ithelial lesion or malignancy. COMMENT: [facility] HISTORICAL RESULTS Comment:This Pap test has be en evaluated with computer assisted technology. GED TUTOR: [facility] HISTORICAL RESULTS Comment:YQ, CT(ASCP) CT scre ening location: [place] [address] [place] [address] C. trachomatis RNA NOT DETECTED NOT DETECTED [facility] HISTORICAL RESULTS N. gonorrhoeae RNA NOT DETECTED NOT DETECTED [facility] HISTORICAL RESULTS COMMENT [facility] HISTORICAL RESULTS Comment: This test was performed using the APTIMA COMBO2 Assay ([employer] The analytical performance characteristics of this assay, when used to test SurePath specimens have been determined by [email or web address]. 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 HISTORICAL RESULTS - 09/20/2016 11:07 AM GROUNDS MAINTENANCE SUPERVISOR 0 PERFORMING LAB: [email or web address] [address] [facility] [id number] Pelon Hand MD us Irene Spivey CN LAB PATHOLOGY ORDERABLE S Final Result 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
--- OUTSIDE RECORDS SUMMARY | 2025-01-08 07:45 | XMS_ITS | Referral Summary ---
Author Organization [facility] Address [address] [place] [address] Care Team Providers Care Hand Tube Winder Name Role Phone Mo Mitchell MD Primary Care Provider [phone] Encounters Date Type Department Care Team Description 01/01/2025 2:10 PM CDT - 01/01/2025 11:59 PM CDT Hospital Encounter [facility] [address] [place] [address] Discharge Disposition: Discharge to home or self care 01/01/2025 Telephone [facility] Infectious Diseases [address] [place] [address] [place] [phone] Sidney Gould Jr., RN 01/01/2025 2:00 PM CDT Home Care Visit [address] [place] [address] Nayely Pedroza, BRITTANIE SN HOME VISIT 12/31/2024 Telephone [facility] Cardiology [address] [facility] 8th [place] [address] [place] [address] Nani Melchor, BRAXTON 12/31/2024 Orders Only [facility] Infectious Diseases [address] [place] [address] [address] [place] [address] Dorothea Stephen, BRAXTON 12/28/2024 11:00 AM CDT Home Care Visit [address] [place] [address] Nayely Pedroza, BRITTANIE SN HOME VISIT 12/27/2024 Telephone [facility] Infectious Diseases [address] [place] [address] [address] [place] [address] Dorothea Stephen, BRAXTON 12/27/2024 9:13 AM CDT - 12/27/2024 11:59 PM CDT Hospital Encounter [facility] [address] [place] [address] Discharge Disposition: Discharge to home or self care 12/27/2024 2:00 PM CDT Home Care Visit [address] [place] [address] Thang Solorzano, PT PT DISCIPLINE DISCHARGE 12/27/2024 8:40 AM CDT Office Visit [facility] Infectious Diseases [address] [place] [address] [address] [place] [phone] Dorothea Stephen, BRAXTON MSSA bacteremia (Primary Dx); Encounter for screening examination for sexually transmitted disease 12/21/2024 Orders Only [facility] Cardiology [address] [facility] 8th [place] [address] [place] [address] Nani Melchor, BRAXTON 12/21/2024 11:30 AM CDT Home Care Visit [address] [place] [address] Nayely Pedroza, BRITTANIE SN HOME VISIT 12/21/2024 2:00 PM CDT Home Care Visit [address] [place] [address] Thang Solorzano, PT PT HOME VISIT 12/19/2024 Home Care Visit [address] [place] [address] Thang Solorzano, PT CASE COMMUNICATION 12/19/2024 11:00 AM CDT Home Care Visit [address] [place] [address] Thang Solorzano, PT PT HOME VISIT 12/13/2024 10:45 AM CDT Home Care Visit [address] [place] [address] Khushboo Jarvis, PT PT HOME VISIT 12/11/2024 1:00 PM CDT Home Care Visit [address] [place] [address] Nayely Pedroza, BRITTANIE SN HOME VISIT 12/11/2024 2:30 PM CDT Home Care Visit [address] [place] [address] Khushboo Jarvis, PT PT HOME VISIT 12/07/2024 SHOP/CHAP Subsequent Outreach [facility] OP CASE MANAGEMENT [address] [place] [address] Neeta Ott, RN 12/06/2024 11:00 AM CDT Home Care Visit [address] [place] [address] Isabelle Campbell, OT OT INITIAL EVALUATION 12/06/2024 12:30 PM CDT Home Care Visit [address] [place] [address] Nayely Pedroza, BRITTANIE SN HOME VISIT 12/05/2024 SHOP/CHAP Subsequent Outreach [facility] OP CASE MANAGEMENT [address] [place] [address] Neeta Ott, BRITTANIE 12/04/2024 SHOP/CHAP Subsequent Outreach [facility] OP CASE MANAGEMENT [address] [place] [address] Neeta Ott, RN 12/04/2024 Home Care Visit [address] [place] [address] Nayely Pedroza, RN CARE CONFERENCE 12/03/2024 Home Care Visit [address] [place] [address] Billy Zarco, BRITTANIE TELEPHONE ENCOUNTER 12/03/2024 Home Care Visit [address] [place] [address] Thang Solorzano, PT TELEPHONE ENCOUNTER 12/03/2024 10:00 AM CDT Home Care Visit [address] [place] [address] Thang Solorzano, PT PT INITIAL EVALUATION 12/03/2024 1:10 PM CDT Telemedicine [facility] [address] [place] [address] [place] [address] Yamilex Mathew, BRAXTON Torsades de pointes (HCC) (Primary Dx); MSSA bacteremia 12/01/2024 Plan of Care Documentation [address] [address] [address] [place] [address] 12/01/2024 12:00 PM CDT Home Care Visit [address] [address] [address] [place] [address] Billy Zarco, BRITTANIE SN OASIS START OF CARE 11/30/2024 Orders Only [facility] Cardiothoracic Surgery [address] [facility] 8th Floor [address] Room [address] [place] [phone] Lee Elena MD Mass of left cardiac ventricle (Primary Dx) 11/29/2024 Telephone [facility] Home Care Services [address] [place] [address] Dora Sandra 11/29/2024 Orders Only Internal Medicine Alex Bailey MD 11/29/2024 SHOP/CHAP Initial Outreach [facility] OP CASE MANAGEMENT [address] [place] [phone] Neeta Ott RN 11/29/2024 SHOP/CHAP Initial Eligibility Review [facility] OP CASE MANAGEMENT [address] [place] [phone] Neeta Ott RN 11/28/2024 Home Care Visit [facility] Home Health - [address] [address] [address] [place] [address] Hortensia Valentino, BRITTANIE SN TRIAGE ENCOUNTER 11/28/2024 Orders Only [facility] Cardiothoracic Surgery [address] [facility] 8th Floor [address] Room [address] [phone] Bo Fried MD MSSA bacteremia (Primary Dx); Thrombocytopenia 10/31/2024 2:44 AM CDT - 11/28/2024 3:29 PM CDT Hospital Encounter [address] [phone] Angela Ramirez MD Vazquez Guillamet, MD Arnulfo Beyer, MD Kassy Rae, MD Leo Killian, Alex Bhatia MD Torsades de pointes (HCC) (Primary Dx); Cardiac arrest (HCC); Anorexia; Electrolyte abnormality; Acute pain [R52]; Painful respiration [R07.1]; Costochondritis [M94.0]; Idiopathic peripheral neuropathy [G60.9]; MSSA bacteremia Discharge Disposition: Discharge to home or self care 11/23/2024 Telephone [facility] Home Care Services [address] [place] [address] [address] [place] [address] Dora Sandra 11/14/2024 1:40 PM CDT Anesthesia Event [facility] [address] [place] [phone] Rudy Licona MD 11/05/2024 Results Follow-Up Critical [...] diarrhea 100 mL 11/29/19 25 Active multivit cnxsrvww-tesx-X A-calcium (THERA-M) 9 mg iron-400 mcg tabletIndicatio [...] daily until blood thinner is received from cartography/mapping technician office Indications: treatment to prevent a [...] materials from doctor or pharmacy Sometimes 12/01/2024 [facility] Utilities Answer Date Recorded In the past 12 months has th e electric, gas, oil, or water [facility] threatened to shut off services in your [...] often do you attend chur ch or caodaism services? Never 11/29/2024 Do you belong to any clubs o r organizations such as yazidi groups, unions, fraternal or athletic groups, or [...] any time in the past 12 m [facility], were you homeless or living in a retirement (including now)? No 11/29/2024 Personal Safety Answer Date Recorded Have you ever been in or are you currently in a harmful physical or emotional relationship or is someone making you feel afraid or unsafe? 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 Gender Identity Not on file Sexual Orientation [...] WO CONTRAST Routine 11/14/2024 2:19 PM CDT SD AN PROCEDURE PLACEHOLDER Routine 11/14/2024 1:56 PM CDT SD AN ELECTIVE ENDOTRACHEAL AIRWAY Routine 11/14/2024 1:56 [...] ANTIBODIES, QUALITATIVE Timed 11/03/2024 2:31 PM CDT AKTEY QUALITATIVE WITH REFLEX TO KATEY QUANTITATIVE Timed [...] E6/E7, CHLAMYDIA/N.GONORRHOEA E Routine 09/14/2016 12:56 PM APPAREL DESIGNER from Last 3 Months or Most Recently [...] Dorothea Stephen NP LAB BLOOD ORDERABLES Krystyna meyres Result [facility] [place] [address] * (ABNORMAL) Basic metabolic panel (01/01/2025 2:10 PM CDT) [facility] Sodium 139 135 - 145 mmol/L Potassium, pl 2.9(L) 3.3 - 4.9 mmol/L [facility] Chloride 98 97 - 110 mmol/L [facility] CO2 26 22 - 32 mmol/L [facility] Anion gap 15 2 - 15 mmol/L [facility] BUN 11 6 - 25 mg/dL [facility] Creatinine 0.63 0.60 - 1.10 mg/dL [facility] Glucose 91 70 - 199 mg/dL [facility] Comment: Interpretive Data Fasting [...] 2022. Calcium 9.2 8.5 - 10.3 mg/dL [facility] Blood 01/01/2025 2:10 PM CDT 01/01/2025 6:04 PM CDT Dorothea Stephen COLUMNIST LAB BLOOD ORDERABLES Krystyna l Result Performing Organization Address [facility] Co de Phone Number [facility] [place] [address] * Glucose, random (Outreach) (12/27/2024 9:13 AM [...] ORDERABLES Krystyna l Result Performing Organization Address [facility] Co de Phone Number [facility] Department [place] [address] * eGFR (12/27/2024 9:13 AM CDT) eGFR [...] NP LAB BLOOD ORDERABLES Krystyna meyers Result [facility] [place] [address] * Differential, auto (12/27/2024 9:13 AM CDT) Neutrophil abs 3.36 1.50 - 6.50 K/cumm Imm gran abs 0.01 0.00 - 0.10 K/cumm [facility] Lymphocyte abs 1.97 0.80 - 3.30 K/cumm [facility] Monocyte abs 0.37 0.20 - 0.80 K/cumm [facility] Eosinophil abs 0.18 0.00 - 0.50 K/cumm [facility] Basophil abs 0.04 0.00 - 0.10 K/cumm [facility] Neutrophil pct 56.7 % [facility] Comment: Interpretive Data Percent cell count reference ranges are not reported, since discordance with absolute values may lead to misinterpretation of CBC data. Current Interpretive Data was last revised on 2017. Imm gran pct 0.2 % [facility] Comment: Interpretive Data Percent cell count reference ranges are not reported, since discordance with absolute values may lead to misinterpretation of CBC data. Current Interpretive Data was last revised on 2017. Lymphocyte pct 33.2 % [facility] Comment: Interpretive Data Percent cell count reference ranges are not reported, since discordance with absolute values may lead to misinterpretation of CBC data. Current Interpretive Data was last revised on 2017. Monocyte pct 6.2 % [facility] Comment: Interpretive Data Percent cell count reference ranges are not reported, since discordance with absolute values may lead to misinterpretation of CBC data. Current Interpretive Data was last revised on 2017. Eosinophil pct 3.0 % [facility] Comment: Interpretive Data Percent cell count reference ranges are not reported, since discordance with absolute values may lead to misinterpretation of CBC data. Current Interpretive Data was last revised on 2017. Basophil pct 0.7 % [facility] Comment: Interpretive Data Percent cell count reference ranges are not reported, since discordance with absolute values may lead to misinterpretation of CBC data. Current Interpretive Data was last revised on 2017. Blood 12/27/2024 9:13 AM CDT 12/27/2024 10:37 AM CDT us Dorothea Stephen COLUMNIST LAB BLOOD ORDERABLES Krystyna meyers Result [facility] Department [place] [address] * (ABNORMAL) Comprehensive metabolic panel, without glucose (Outreach) (12/27/2024 9:13 AM CDT) Sodium 136 135 - 145 mmol/L Potassium, pl 2.9(L) 3.3 - 4.9 mmol/L [facility] Chloride 98 97 - 110 mmol/L [facility] CO2 24 22 - 32 mmol/L [facility] Anion gap 14 2 - 15 mmol/L [facility] BUN 9 6 - 25 mg/dL [facility] Creatinine 0.64 0.60 - 1.10 mg/dL [facility] Calcium 9.7 8.5 - 10.3 mg/dL [facility] Protein, pl 8.2 6.5 - 8.5 g/dL [facility] Albumin 4.2 3.5 - 5.0 g/dL [facility] Bilirubin, total 0.7 0.1 - 1.2 mg/dL [facility] Alk phos 175(H) 40 - 130 Units/L [facility] AST 51(H) 10 - 45 Units/L [facility] ALT 25 7 - 45 Units/L [facility] Blood 12/27/2024 9:13 AM CDT 12/27/2024 10:38 AM CDT us Dorothea Stephen COLUMNIST LAB BLOOD ORDERABLES Krystyna l Result Performing Organization Address City/[facility]/ZIP Co de Phone Number [facility] Department [place] [address] * (ABNORMAL) CBC with auto differential (12/27/2024 9:13 AM CDT) [facility] WBC 5.93 3.80 - 9.90 K/cumm Hgb 13.9 11.9 - 15.5 g/dL [facility] Hct 40.1 35.6 - 45.5 % [facility] Plt 138(L) 150 - 400 K/cumm [facility] MPV 11.4 9.1 - 12.3 fL [facility] RBC 4.23 3.90 - 5.20 M/cumm [facility] MCV 94.8 81.3 - 96.4 fL [facility] MCH 32.9 27.1 - 33.3 pg [facility] MCHC 34.7 32.3 - 35.7 g/dL [facility] RDW CV 13.0 11.1 - 14.9 % [facility] RDW SD 45.3 35.7 - 48.1 fL [facility] NRBC abs 0.00 0.00 - 0.01 K/cumm [facility] Blood 12/27/2024 9:13 AM CDT 12/27/2024 10:37 AM CDT us Dorothea Stephen COLUMNIST LAB BLOOD ORDERABLES Krystyna l Result [facility] BACK [facility] Department [place] [address] * Magnesium (12/27/2024 9:13 AM CDT) Magnesium 1.9 1.4 - 2.5 mg/dL Blood 12/27/2024 9:13 AM CDT 12/27/2024 10:50 AM CDT Mo Villatoro MD LAB BLOOD ORDERABLES Final Resul t [facility] Department [place] [address] * Blood culture Blood (12/27/2024 9:05 AM CDT) Report Final Report: No growth Blood 12/27/2024 9:05 AM CDT 12/27/2024 11:47 AM CDT Narrative [facility] - 12/31/2024 12:00 PM CDT Specimen [...] performance characteristics have been verified by the [facility] Microbiology Laboratory. For questions about this culture, contact the Microbiology Laboratory at [phone]. Interpretive data was last revised on 24. Dorothea Stephen NP LAB MICROBIOLOGY - GENERA L ORDERABLES Final Result Performing Organization Address [facility]/ZIP Co de Phone Number SHONA RAMIREZ [facility] Department [place] [address] * Blood culture Blood (12/27/2024 9:05 AM [...] performance characteristics have been verified by the [facility] Microbiology Laboratory. For questions about this culture, contact the Microbiology Laboratory at [phone]. Interpretive data was last revised on 24. Dorothea Stephen NP LAB MICROBIOLOGY - GENERA L ORDERABLES Final Result [facility] Department [place] [address] * (ABNORMAL) Cystatin C (11/28/2024 10:45 AM [...] last revised on 2020. Testing performed by: [facility], [place]., [address] Blood 11/28/2024 10:4 5 AM CDT 11/28/2024 12:03 PM CDT us Alex Bailey MD LAB BLOOD ORDERABLES Final Resu lt Performing Organization Address [facility] de Phone Number SH[facility] Department [place] [address] * eGFR (11/27/2024 9:44 PM CDT) eGFR [...] MD LAB BLOOD ORDERABLES Krystyna mira Result [facility] [place] [address] * (ABNORMAL) Differential, auto (11/27/2024 9:44 PM CDT) Pathologist [facility] Neutrophil abs 2.70 1.50 - 6.50 K/cumm Imm gran abs 0.03 0.00 - 0.10 K/cumm [facility] Lymphocyte abs 2.90 0.80 - 3.30 K/cumm [facility] Monocyte abs 0.50 0.20 - 0.80 K/cumm [facility] Eosinophil abs 0.13 0.00 - 0.50 K/cumm [facility] Basophil abs 0.13(H) 0.00 - 0.10 K/cumm [facility] Neutrophil pct 42.3 % [facility] Comment: Interpretive Data Percent cell count reference ranges are not reported, since discordance with absolute values may lead to misinterpretation of CBC data. Current Interpretive Data was last revised on 2017. Imm gran pct 0.5 % [facility] Comment: Interpretive Data Percent cell count reference ranges are not reported, since discordance with absolute values may lead to misinterpretation of CBC data. Current Interpretive Data was last revised on 2017. Lymphocyte pct 45.4 % [facility] Comment: Interpretive Data Percent cell count reference ranges are not reported, since discordance with absolute values may lead to misinterpretation of CBC data. Current Interpretive Data was last revised on 2017. Monocyte pct 7.8 % [facility] Comment: Interpretive Data Percent cell count reference ranges are not reported, since discordance with absolute values may lead to misinterpretation of CBC data. Current Interpretive Data was last revised on 2017. Eosinophil pct 2.0 % [facility] Comment: Interpretive Data Percent cell count reference ranges are not reported, since discordance with absolute values may lead to misinterpretation of CBC data. Current Interpretive Data was last revised on 2017. Basophil pct 2.0 % [facility] Comment: Interpretive Data Percent cell count reference ranges are not reported, since discordance with absolute values may lead to misinterpretation of CBC data. Current Interpretive Data was last revised on 2017. Blood 11/27/2024 9:44 PM CDT 11/27/2024 10:41 PM CDT us Lee Elena MD LAB BLOOD ORDERABLES Krystyna meyers Result [facility] Department [place] [address] * (ABNORMAL) CBC with auto differential (11/27/2024 9:44 PM CDT) WBC 6.39 3.80 - 9.90 K/cumm Hgb 10.5(L) 11.9 - 15.5 g/dL [facility] Hct 32.5(L) 35.6 - 45.5 % [facility] Plt 419(H) 150 - 400 K/cumm [facility] MPV 9.3 9.1 - 12.3 fL [facility] RBC 3.10(L) 3.90 - 5.20 M/cumm [facility] MCV 104.8(H) 81.3 - 96.4 fL [facility] MCH 33.9(H) 27.1 - 33.3 pg [facility] MCHC 32.3 32.3 - 35.7 g/dL [facility] RDW CV 18.6(H) 11.1 - 14.9 % [facility] RDW SD 71.7(H) 35.7 - 48.1 fL [facility] NRBC abs 0.00 0.00 - 0.01 K/cumm [facility] Blood 11/27/2024 9:44 PM CDT 11/27/2024 10:41 PM CDT Lee Elena MD LAB BLOOD ORDERABLES Krystyna l Result Performing Organization Address City/[facility] Co de Phone Number [facility] Department [place] [address] * (ABNORMAL) Vitamin D 25 hydroxy (11/27/2024 9:44 PM CDT) [facility] Vitamin D 25-OH 27(L) 30 - 80 ng/mL Blood 11/27/2024 9:44 PM CDT 11/27/2024 10:41 PM CDT Alex Bailey MD LAB BLOOD ORDERABLES Final Resu lt Performing Organization Address [facility] [place] [address] * Protime-INR (11/27/2024 9:44 PM CDT) [facility] PT 10.2 9.7 - 13.0 sec INR 0.95 0.90 - 1.20 [facility] Comment: Interpretive data Oral [...] ORDERABLES Krystyna l Result Performing Organization Address [facility] Co de Phone Number [facility] [place] [address] * (ABNORMAL) Phosphorus (11/27/2024 9:44 PM CDT) Pathologist [facility] Phosphorus, pl 6.6(H) 2.3 - 4.5 mg/dL Blood 11/27/2024 9:44 PM CDT 11/27/2024 10:41 PM CDT Lee Elena MD LAB BLOOD ORDERABLES Krystyna l Result Performing Organization Address City/[facility] Co de Phone Number [facility] Department [place] [address] * Magnesium (11/27/2024 9:44 PM CDT) [facility] Magnesium 1.6 1.4 - 2.5 mg/dL Blood 11/27/2024 9:44 PM CDT 11/27/2024 10:41 PM CDT Lee Elena MD LAB BLOOD ORDERABLES Krystyna l Result Performing Organization Address [facility] de Phone Number [facility] [place] [address] * (ABNORMAL) Hepatic function panel (11/27/2024 9:44 PM CDT) [facility] Bilirubin, total 0.4 0.1 - 1.2 mg/dL Bilirubin, direct 0.2 0.1 - 0.3 mg/dL [facility] Protein, pl 7.3 6.5 - 8.5 g/dL [facility] Albumin 3.4(L) 3.5 - 5.0 g/dL [facility] Alk phos 133(H) 40 - 130 Units/L [facility] ALT 17 7 - 45 Units/L [facility] AST 36 10 - 45 Units/L [facility] Blood 11/27/2024 9:44 PM CDT 11/27/2024 10:41 PM CDT Lee Elena MD LAB BLOOD ORDERABLES Krystyna l Result Performing Organization Address [facility]/ZIP Co de Phone Number [facility] [place] [address] * (ABNORMAL) Basic metabolic panel (11/27/2024 9:44 PM CDT) Pathologist [facility] Sodium 139 135 - 145 mmol/L Potassium, pl 4.3 3.3 - 4.9 mmol/L [facility] Chloride 101 97 - 110 mmol/L [facility] CO2 31 22 - 32 mmol/L [facility] Anion gap 7 2 - 15 mmol/L [facility] BUN 18 6 - 25 mg/dL [facility] Creatinine 0.50(L) 0.60 - 1.10 mg/dL [facility] Glucose 99 70 - 199 mg/dL [facility] Comment: Interpretive Data Fasting [...] 2022. Calcium 10.0 8.5 - 10.3 mg/dL [facility] [facility] Blood 11/27/2024 9:44 PM CDT 11/27/2024 10:41 PM CDT us Lee Elena MD LAB BLOOD ORDERABLES Krystyna l Result [facility] Department [place] [address] * eGFR (11/26/2024 9:38 PM CDT) [facility] eGFR >90 >=60 mL/min/1. 73 [...] MD LAB BLOOD ORDERABLES Krystyna meyers Result [facility] [place] [address] * (ABNORMAL) Differential, auto (11/26/2024 9:38 PM CDT) Neutrophil abs 2.02 1.50 - 6.50 K/cumm Imm gran abs 0.03 0.00 - 0.10 K/cumm [facility] Lymphocyte abs 3.04 0.80 - 3.30 K/cumm [facility] Monocyte abs 0.56 0.20 - 0.80 K/cumm [facility] Eosinophil abs 0.10 0.00 - 0.50 K/cumm [facility] Basophil abs 0.11(H) 0.00 - 0.10 K/cumm [facility] Neutrophil pct 34.4 % [facility] Comment: Interpretive Data Percent cell count reference ranges are not reported, since discordance with absolute values may lead to misinterpretation of CBC data. Current Interpretive Data was last revised on 2017. Imm gran pct 0.5 % [facility] Comment: Interpretive Data Percent cell count reference ranges are not reported, since discordance with absolute values may lead to misinterpretation of CBC data. Current Interpretive Data was last revised on 2017. Lymphocyte pct 51.9 % [facility] Comment: Interpretive Data Percent cell count reference ranges are not reported, since discordance with absolute values may lead to misinterpretation of CBC data. Current Interpretive Data was last revised on 2017. Monocyte pct 9.6 % [facility] Comment: Interpretive Data Percent cell count reference ranges are not reported, since discordance with absolute values may lead to misinterpretation of CBC data. Current Interpretive Data was last revised on 2017. Eosinophil pct 1.7 % [facility] Comment: Interpretive Data Percent cell count reference ranges are not reported, since discordance with absolute values may lead to misinterpretation of CBC data. Current Interpretive Data was last revised on 2017. Basophil pct 1.9 % [facility] Comment: Interpretive Data Percent cell count reference ranges are not reported, since discordance with absolute values may lead to misinterpretation of CBC data. Current Interpretive Data was last revised on 2017. Blood 11/26/2024 9:38 PM CDT 11/26/2024 10:36 PM CDT Lee Elena MD LAB BLOOD ORDERABLES Krystyna meyers Result [facility] [place] [address] * (ABNORMAL) CBC with auto differential (11/26/2024 9:38 PM CDT) Pathologist [facility] WBC 5.86 3.80 - 9.90 K/cumm Hgb 9.7(L) 11.9 - 15.5 g/dL [facility] Hct 29.7(L) 35.6 - 45.5 % [facility] Plt 398 150 - 400 K/cumm [facility] MPV 9.2 9.1 - 12.3 fL [facility] RBC 2.87(L) 3.90 - 5.20 M/cumm [facility] MCV 103.5(H) 81.3 - 96.4 fL [facility] MCH 33.8(H) 27.1 - 33.3 pg [facility] MCHC 32.7 32.3 - 35.7 g/dL [facility] RDW CV 18.7(H) 11.1 - 14.9 % [facility] RDW SD 71.5(H) 35.7 - 48.1 fL [facility] NRBC abs 0.00 0.00 - 0.01 K/cumm [facility] Blood 11/26/2024 9:38 PM CDT 11/26/2024 10:36 PM CDT Lee Elena MD LAB BLOOD ORDERABLES Krystyna meyers Result Performing Organization Address [facility] de Phone Number [facility] [place] [address] * (ABNORMAL) Protime-INR (11/26/2024 9:38 PM CDT) PT 9.5(L) 9.7 - 13.0 sec INR 0.88(L) 0.90 - 1.20 [facility] Comment: Interpretive data Oral [...] ORDERABLES Krystyna l Result Performing Organization Address [facility] Co de Phone Number [facility] [place] [address] * (ABNORMAL) Phosphorus (11/26/2024 9:38 PM CDT) Phosphorus, pl 5.7(H) 2.3 - 4.5 mg/dL Blood 11/26/2024 9:38 PM CDT 11/26/2024 10:42 PM CDT Lee Elena MD LAB BLOOD ORDERABLES Krystyna l Result Performing Organization Address [facility] Co de Phone Number [facility] [place] [address] * Magnesium (11/26/2024 9:38 PM CDT) Pathologist [facility] Magnesium 2.1 1.4 - 2.5 mg/dL Blood 11/26/2024 9:38 PM CDT 11/26/2024 10:42 PM CDT Lee Elena MD LAB BLOOD ORDERABLES Krystyna l Result Performing Organization Address [facility] de Phone Number [facility] Department [place] [address] * (ABNORMAL) Hepatic function panel (11/26/2024 9:38 PM CDT) Bilirubin, total 0.3 0.1 - 1.2 mg/dL Bilirubin, direct 0.2 0.1 - 0.3 mg/dL [facility] Protein, pl 6.5 6.5 - 8.5 g/dL [facility] Albumin 2.8(L) 3.5 - 5.0 g/dL [facility] Alk phos 132(H) 40 - 130 Units/L [facility] ALT 17 7 - 45 Units/L [facility] AST 38 10 - 45 Units/L [facility] Blood 11/26/2024 9:38 PM CDT 11/26/2024 10:42 PM CDT Lee Elena MD LAB BLOOD ORDERABLES Krystyna l Result Performing Organization Address [facility] Co [facility] [place] [address] * (ABNORMAL) Basic metabolic panel (11/26/2024 9:38 PM CDT) [facility] Sodium 141 135 - 145 mmol/L Potassium, pl 4.1 3.3 - 4.9 mmol/L [facility] Chloride 101 97 - 110 mmol/L [facility] CO2 29 22 - 32 mmol/L [facility] Anion gap 11 2 - 15 mmol/L [facility] BUN 15 6 - 25 mg/dL [facility] Creatinine 0.54(L) 0.60 - 1.10 mg/dL [facility] Glucose 89 70 - 199 mg/dL [facility] Comment: Interpretive Data Fasting [...] 2022. Calcium 9.1 8.5 - 10.3 mg/dL [facility] Blood 11/26/2024 9:38 PM CDT 11/26/2024 10:42 PM CDT us Lee Elena MD LAB BLOOD ORDERABLES Krystyna meyers Result [facility] Department [place] [address] * TRANSTHORACIC ECHO (TTE) LIMITED/FOLLOW UP W LTD DOPPLER/CF W CONTRAST (11/26/2024 1:54 PM CDT) [facility] Estimated EF 55-60 % CONS SCIMAGE Anatomical Region Laterality Modality Ultrasound 11/26/2024 1:05 PM CDT Narrative 11/26/2024 2:37 PM CDT [facility] [place] [address] Transthoracic Echocardiographic Report Patient Name: HAYLEY LEÓN L : 1990 (34y 9m) Gender: F Study Date: 11/26/2024 01:05:04 PM Ht(Inch): 61 Wt(Lb): 98.1 BSA: 1.38 [employer] Pit Worker: Lise De Anda Location: [id number] Order Provider: ALEX BAILEY Heart Rate: 72 [...] Procedure Note Jim Malloy MD - 11/26/2024 [facility] [place] [address] Transthoracic Echocardiographic Report Patient Name: HAYLEY LEÓN L : 1990 (34y 9m) Gender: F Study Date: 11/26/2024 01:05:04 PM Ht(Inch): 61 Wt(Lb): 98.1 BSA: 1.38 [employer] Worker: Lise De Anda Location: [id number] Order Provider:ALEX BAILEY Heart Rate: 72 BMI: [...] ORDERABLES - DEVICE Fi nal Result [facility] Department [place] [address] * eGFR (11/25/2024 9:19 PM CDT) eGFR [...] MD LAB BLOOD ORDERABLES Krystyna l Result [facility] [place] [address] * Differential, auto (11/25/2024 9:19 PM CDT) Neutrophil abs 1.90 1.50 - 6.50 K/cumm Imm gran abs 0.02 0.00 - 0.10 K/cumm [facility] Lymphocyte abs 2.86 0.80 - 3.30 K/cumm [facility] Monocyte abs 0.53 0.20 - 0.80 K/cumm [facility] Eosinophil abs 0.11 0.00 - 0.50 K/cumm [facility] Basophil abs 0.09 0.00 - 0.10 K/cumm [facility] Neutrophil pct 34.5 % [facility] Comment: Interpretive Data Percent cell count reference ranges are not reported, since discordance with absolute values may lead to misinterpretation of CBC data. Current Interpretive Data was last revised on 2017. Imm gran pct 0.4 % [facility] Comment: Interpretive Data Percent cell count reference ranges are not reported, since discordance with absolute values may lead to misinterpretation of CBC data. Current Interpretive Data was last revised on 2017. Lymphocyte pct 51.9 % [facility] Comment: Interpretive Data Percent cell count reference ranges are not reported, since discordance with absolute values may lead to misinterpretation of CBC data. Current Interpretive Data was last revised on 2017. Monocyte pct 9.6 % [facility] Comment: Interpretive Data Percent cell count reference ranges are not reported, since discordance with absolute values may lead to misinterpretation of CBC data. Current Interpretive Data was last revised on 2017. Eosinophil pct 2.0 % [facility] Comment: Interpretive Data Percent cell count reference ranges are not reported, since discordance with absolute values may lead to misinterpretation of CBC data. Current Interpretive Data was last revised on 2017. Basophil pct 1.6 % [facility] Comment: Interpretive Data Percent cell count reference ranges are not reported, since discordance with absolute values may lead to misinterpretation of CBC data. Current Interpretive Data was last revised on 2017. Blood 11/25/2024 9:19 PM CDT 11/25/2024 10:49 PM CDT Lee Elena MD LAB BLOOD ORDERABLES Krystyna l Result Performing Organization Address [facility] Co de Phone Number [facility] [place] [address] * (ABNORMAL) CBC with auto differential (11/25/2024 9:19 PM CDT) WBC 5.51 3.80 - 9.90 K/cumm Hgb 10.2(L) 11.9 - 15.5 g/dL [facility] Hct 31.9(L) 35.6 - 45.5 % [facility] Plt 466(H) 150 - 400 K/cumm [facility] MPV 9.4 9.1 - 12.3 fL [facility] RBC 3.06(L) 3.90 - 5.20 M/cumm [facility] MCV 104.2(H) 81.3 - 96.4 fL [facility] MCH 33.3 27.1 - 33.3 pg [facility] MCHC 32.0(L) 32.3 - 35.7 g/dL [facility] RDW CV 19.1(H) 11.1 - 14.9 % [facility] RDW SD 72.8(H) 35.7 - 48.1 fL [facility] NRBC abs 0.00 0.00 - 0.01 K/cumm [facility] Blood 11/25/2024 9:19 PM CDT 11/25/2024 10:49 PM CDT Lee Elena MD LAB BLOOD ORDERABLES Krystyna meyers Result Performing Organization Address [facility] Co de Phone Number [facility] [place] [address] * Protime-INR (11/25/2024 9:19 PM CDT) PT 10.0 9.7 - 13.0 sec INR 0.93 0.90 - 1.20 [facility] Comment: Interpretive data Oral [...] ORDERABLES Krystyna l Result Performing Organization Address [facility] de Phone Number [facility] Department [place] [address] * (ABNORMAL) Phosphorus (11/25/2024 9:19 PM CDT) Pathologist [facility] Phosphorus, pl 5.2(H) 2.3 - 4.5 mg/dL Blood 11/25/2024 9:19 PM CDT 11/25/2024 10:47 PM CDT Lee Elena MD LAB BLOOD ORDERABLES Krystyna l Result Performing Organization Address [facility] de Phone Number [facility] [place] [address] * Magnesium (11/25/2024 9:19 PM CDT) Pathologist [facility] Magnesium 1.6 1.4 - 2.5 mg/dL Blood 11/25/2024 9:19 PM CDT 11/25/2024 10:47 PM CDT Lee Elena MD LAB BLOOD ORDERABLES Krystyna l Result Performing Organization Address [facility]/ZIP Co de Phone Number [facility] [place] [address] * (ABNORMAL) Hepatic function panel (11/25/2024 9:19 PM CDT) [facility] Bilirubin, total 0.4 0.1 - 1.2 mg/dL Bilirubin, direct 0.2 0.1 - 0.3 mg/dL [facility] Protein, pl 6.8 6.5 - 8.5 g/dL [facility] Albumin 3.0(L) 3.5 - 5.0 g/dL [facility] Alk phos 142(H) 40 - 130 Units/L [facility] ALT 16 7 - 45 Units/L [facility] AST 35 10 - 45 Units/L [facility] Blood 11/25/2024 9:19 PM CDT 11/25/2024 10:47 PM CDT Lee Elena MD LAB BLOOD ORDERABLES Krystyna l Result [facility] [place] [address] * (ABNORMAL) Basic metabolic panel (11/25/2024 9:19 PM CDT) [facility] Sodium 143 135 - 145 mmol/L Potassium, pl 4.3 3.3 - 4.9 mmol/L [facility] Chloride 104 97 - 110 mmol/L [facility] CO2 29 22 - 32 mmol/L [facility] Anion gap 10 2 - 15 mmol/L [facility] BUN 16 6 - 25 mg/dL [facility] Creatinine 0.46(L) 0.60 - 1.10 mg/dL [facility] Glucose 99 70 - 199 mg/dL [facility] Comment: Interpretive Data Fasting [...] Calcium 9.5 8.5 - 10.3 mg/dL [facility] Blood 11/25/2024 9:19 PM CDT 11/25/2024 10:47 PM CDT us Lee Elena MD LAB BLOOD ORDERABLES Krystyna l Result Performing Organization Address [facility]/ZIP Co de Phone Number [facility] [place] [address] * eGFR (11/24/2024 9:18 PM CDT) eGFR [...] ORDERABLES Krystyna l Result Performing Organization Address City/[facility]/ZIP Co de Phone Number [facility] [place] [address] * Differential, auto (11/24/2024 9:18 PM CDT) Neutrophil abs 1.96 1.50 - 6.50 K/cumm Imm gran abs 0.04 0.00 - 0.10 K/cumm [facility] Lymphocyte abs 2.69 0.80 - 3.30 K/cumm [facility] Monocyte abs 0.52 0.20 - 0.80 K/cumm [facility] Eosinophil abs 0.09 0.00 - 0.50 K/cumm [facility] Basophil abs 0.08 0.00 - 0.10 K/cumm [facility] Neutrophil pct 36.4 % [facility] Comment: Interpretive Data Percent cell count reference ranges are not reported, since discordance with absolute values may lead to misinterpretation of CBC data. Current Interpretive Data was last revised on 2017. Imm gran pct 0.7 % [facility] Comment: Interpretive Data Percent cell count reference ranges are not reported, since discordance with absolute values may lead to misinterpretation of CBC data. Current Interpretive Data was last revised on 2017. Lymphocyte pct 50.0 % [facility] Comment: Interpretive Data Percent cell count reference ranges are not reported, since discordance with absolute values may lead to misinterpretation of CBC data. Current Interpretive Data was last revised on 2017. Monocyte pct 9.7 % [facility] Comment: Interpretive Data Percent cell count reference ranges are not reported, since discordance with absolute values may lead to misinterpretation of CBC data. Current Interpretive Data was last revised on 2017. Eosinophil pct 1.7 % [facility] Comment: Interpretive Data Percent cell count reference ranges are not reported, since discordance with absolute values may lead to misinterpretation of CBC data. Current Interpretive Data was last revised on 2017. Basophil pct 1.5 % [facility] Comment: Interpretive Data Percent cell count reference ranges are not reported, since discordance with absolute values may lead to misinterpretation of CBC data. Current Interpretive Data was last revised on 2017. Blood 11/24/2024 9:18 PM CDT 11/24/2024 10:00 PM CDT Lee Elena MD LAB BLOOD ORDERABLES Krystyna meyers Result [facility] [place] [address] * (ABNORMAL) CBC with auto differential (11/24/2024 9:18 PM CDT) Pathologist [facility] WBC 5.38 3.80 - 9.90 K/cumm Hgb 9.4(L) 11.9 - 15.5 g/dL [facility] Hct 28.7(L) 35.6 - 45.5 % [facility] Plt 437(H) 150 - 400 K/cumm [facility] MPV 9.0(L) 9.1 - 12.3 fL [facility] RBC 2.80(L) 3.90 - 5.20 M/cumm [facility] MCV 102.5(H) 81.3 - 96.4 fL [facility] MCH 33.6(H) 27.1 - 33.3 pg [facility] MCHC 32.8 32.3 - 35.7 g/dL [facility] RDW CV 19.4(H) 11.1 - 14.9 % [facility] RDW SD 73.4(H) 35.7 - 48.1 fL [facility] NRBC abs 0.00 0.00 - 0.01 K/cumm [facility] Blood 11/24/2024 9:18 PM CDT 11/24/2024 10:00 PM CDT Lee Elena MD LAB BLOOD ORDERABLES Krystyna meyers Result [facility] [place] [address] * Protime-INR (11/24/2024 9:18 PM CDT) Pathologist [facility] PT 10.1 9.7 - 13.0 sec INR 0.94 0.90 - 1.20 [facility] Comment: Interpretive data Oral [...] ORDERABLES Krystyna l Result Performing Organization Address [facility] Co de Phone Number [facility] [place] [address] * (ABNORMAL) Phosphorus (11/24/2024 9:18 PM CDT) [facility] Phosphorus, pl 4.7(H) 2.3 - 4.5 mg/dL Blood 11/24/2024 9:18 PM CDT 11/24/2024 10:00 PM CDT Lee Elena MD LAB BLOOD ORDERABLES Krystyna l Result Performing Organization Address [facility] Co de Phone Number [facility] [place] [address] * Magnesium (11/24/2024 9:18 PM CDT) [facility] Magnesium 2.0 1.4 - 2.5 mg/dL Blood 11/24/2024 9:18 PM CDT 11/24/2024 10:00 PM CDT Lee Elena MD LAB BLOOD ORDERABLES Krystyna l Result Performing Organization Address [facility] Co de Phone Number [facility] [place] [address] * (ABNORMAL) Hepatic function panel (11/24/2024 9:18 PM CDT) [facility] Bilirubin, total 0.3 0.1 - 1.2 mg/dL Bilirubin, direct 0.2 0.1 - 0.3 mg/dL [facility] Protein, pl 6.4(L) 6.5 - 8.5 g/dL [facility] Albumin 2.8(L) 3.5 - 5.0 g/dL [facility] Alk phos 148(H) 40 - 130 Units/L [facility] ALT 14 7 - 45 Units/L [facility] AST 38 10 - 45 Units/L [facility] Blood 11/24/2024 9:18 PM CDT 11/24/2024 10:00 PM CDT Lee Elena MD LAB BLOOD ORDERABLES Krystyna l Result [facility] [place] [address] * (ABNORMAL) Basic metabolic panel (11/24/2024 9:18 PM CDT) [facility] Sodium 142 135 - 145 mmol/L Potassium, pl 4.1 3.3 - 4.9 mmol/L [facility] Chloride 104 97 - 110 mmol/L [facility] CO2 30 22 - 32 mmol/L [facility] Anion gap 8 2 - 15 mmol/L [facility] BUN 16 6 - 25 mg/dL [facility] Creatinine 0.51(L) 0.60 - 1.10 mg/dL [facility] Glucose 101 70 - 199 mg/dL [facility] Comment: Interpretive Data Fasting [...] 2022. Calcium 9.0 8.5 - 10.3 mg/dL [facility] Blood 11/24/2024 9:18 PM CDT 11/24/2024 10:00 PM CDT us Lee Elena MD LAB BLOOD ORDERABLES Krystyna l Result Performing Organization Address [facility]/ZIP Co de Phone Number [facility] [place] [address] * POCT glucose (11/24/2024 7:49 PM CDT) Glucose, POC 104 70 - 199 mg/dL Blood 11/24/2024 7:49 PM CDT 11/24/2024 7:49 PM CDT us Alex Bailey MD LAB POCT ORDERABLES - DEVICE Fi nal Result Performing Organization Address [facility] Co de Phone Number [facility] [place] [address] * ECG 12 lead (11/24/2024 7:01 AM CDT) Ventricular Rate EKG/Min 77 BPM [facility] Atrial Rate 77 BPM [facility] SD-Interval (MSEC) 134 ms [facility] QRS-Interval (MSEC) 70 ms [facility] QT-Interval (MSEC) 456 ms [facility] QTc 516 ms [facility] P Virgie 38 degrees [facility] R Virgie 36 degrees [facility] T Virgie 137 degrees [facility] Diagnosis Normal sinus rhythm Low voltage QRS T wave abnormality, consider lateral ischemia Prolonged QT Abnormal ECG When compared with ECG of 23-NOV-2024 18:23, (unconfirmed) No significant change was found Confirmed by SHALINI RODRIGUEZ M.D ([id number]) on 11/27/2024 12:19:52 PM [facility] 11/24/2024 7:01 AM CDT 11/27/2024 12:19 PM CDT Lee Elena MD ECG ORDERABLES Final Res ult Performing Organization Address [facility] Co de Phone Number [facility] * eGFR (11/23/2024 10:10 PM CDT) eGFR [...] ORDERABLES Krystyna l Result Performing Organization Address [facility]/ZIP Co de Phone Number [facility] [place] [address] * Differential, auto (11/23/2024 10:10 PM CDT) Neutrophil abs 6.22 1.50 - 6.50 K/cumm Imm gran abs 0.05 0.00 - 0.10 K/cumm [facility] Lymphocyte abs 2.05 0.80 - 3.30 K/cumm [facility] Monocyte abs 0.66 0.20 - 0.80 K/cumm [facility] Eosinophil abs 0.10 0.00 - 0.50 K/cumm [facility] Basophil abs 0.08 0.00 - 0.10 K/cumm [facility] Neutrophil pct 67.9 % [facility] Comment: Interpretive Data Percent cell count reference ranges are not reported, since discordance with absolute values may lead to misinterpretation of CBC data. Current Interpretive Data was last revised on 2017. Imm gran pct 0.5 % [facility] Comment: Interpretive Data Percent cell count reference ranges are not reported, since discordance with absolute values may lead to misinterpretation of CBC data. Current Interpretive Data was last revised on 2017. Lymphocyte pct 22.4 % [facility] Comment: Interpretive Data Percent cell count reference ranges are not reported, since discordance with absolute values may lead to misinterpretation of CBC data. Current Interpretive Data was last revised on 2017. Monocyte pct 7.2 % [facility] Comment: Interpretive Data Percent cell count reference ranges are not reported, since discordance with absolute values may lead to misinterpretation of CBC data. Current Interpretive Data was last revised on 2017. Eosinophil pct 1.1 % [facility] Comment: Interpretive Data Percent cell count reference ranges are not reported, since discordance with absolute values may lead to misinterpretation of CBC data. Current Interpretive Data was last revised on 2017. Basophil pct 0.9 % [facility] Comment: Interpretive Data Percent cell count reference ranges are not reported, since discordance with absolute values may lead to misinterpretation of CBC data. Current Interpretive Data was last revised on 2017. Blood 11/23/2024 10:1 0 PM CDT 11/23/2024 11:09 PM CDT us Lee Elena MD LAB BLOOD ORDERABLES Krystyna meyers Result [facility] [place] [address] * (ABNORMAL) CBC with auto differential (11/23/2024 10:10 PM CDT) Pathologist [facility] WBC 9.16 3.80 - 9.90 K/cumm Hgb 9.8(L) 11.9 - 15.5 g/dL [facility] Hct 29.9(L) 35.6 - 45.5 % [facility] Plt 483(H) 150 - 400 K/cumm [facility] MPV 9.2 9.1 - 12.3 fL [facility] RBC 2.92(L) 3.90 - 5.20 M/cumm [facility] MCV 102.4(H) 81.3 - 96.4 fL [facility] MCH 33.6(H) 27.1 - 33.3 pg [facility] MCHC 32.8 32.3 - 35.7 g/dL [facility] RDW CV 19.3(H) 11.1 - 14.9 % [facility] RDW SD 72.0(H) 35.7 - 48.1 fL [facility] NRBC abs 0.00 0.00 - 0.01 K/cumm [facility] Blood 11/23/2024 10:1 0 PM CDT 11/23/2024 11:09 PM CDT us Lee Elena MD LAB BLOOD ORDERABLES Krystyna meyers Result [facility] [place] [address] * Protime-INR (11/23/2024 10:10 PM CDT) Pathologist [facility] PT 10.5 9.7 - 13.0 sec INR 0.97 0.90 - 1.20 [facility] Comment: Interpretive data Oral [...] ORDERABLES Krystyna l Result Performing Organization Address [facility] de Phone Number [facility] [place] [address] * (ABNORMAL) Phosphorus (11/23/2024 10:10 PM CDT) Phosphorus, pl 5.5(H) 2.3 - 4.5 mg/dL Blood 11/23/2024 10:1 0 PM CDT 11/23/2024 11:09 PM CDT Lee Elena MD LAB BLOOD ORDERABLES Krystyna l Result Performing Organization Address [facility] de Phone Number [facility] [place] [address] * Magnesium (11/23/2024 10:10 PM CDT) Magnesium 1.5 1.4 - 2.5 mg/dL Blood 11/23/2024 10:1 0 PM CDT 11/23/2024 11:09 PM CDT Lee Elena MD LAB BLOOD ORDERABLES Krystyna l Result Performing Organization Address [facility] de Phone Number [facility] [place] [address] * (ABNORMAL) Hepatic function panel (11/23/2024 10:10 PM CDT) Bilirubin, total 0.4 0.1 - 1.2 mg/dL Bilirubin, direct 0.2 0.1 - 0.3 mg/dL [facility] Protein, pl 6.3(L) 6.5 - 8.5 g/dL [facility] Albumin 2.9(L) 3.5 - 5.0 g/dL [facility] Alk phos 143(H) 40 - 130 Units/L [facility] ALT 14 7 - 45 Units/L [facility] AST 37 10 - 45 Units/L [facility] Blood 11/23/2024 10:1 0 PM CDT 11/23/2024 11:09 PM CDT us Lee Elena MD LAB BLOOD ORDERABLES Krystyna l Result [facility] Department [place] [address] * (ABNORMAL) Basic metabolic panel (11/23/2024 10:10 PM CDT) Sodium 140 135 - 145 mmol/L Potassium, pl 3.6 3.3 - 4.9 mmol/L [facility] Chloride 100 97 - 110 mmol/L [facility] CO2 31 22 - 32 mmol/L [facility] Anion gap 9 2 - 15 mmol/L [facility] BUN 15 6 - 25 mg/dL [facility] Creatinine 0.52(L) 0.60 - 1.10 mg/dL [facility] Glucose 90 70 - 199 mg/dL [facility] Comment: Interpretive Data Fasting [...] 2022. Calcium 9.5 8.5 - 10.3 mg/dL [facility] Blood 11/23/2024 10:1 0 PM CDT 11/23/2024 11:09 PM CDT us Lee Elena MD LAB BLOOD ORDERABLES Krystyna l Result Performing Organization Address [facility] Co de Phone Number [facility] [place] [address] * POCT glucose (11/23/2024 9:14 PM CDT) Glucose, POC 107 70 - 199 mg/dL Blood 11/23/2024 9:14 PM CDT 11/23/2024 9:14 PM CDT us Alex Bailey MD LAB POCT ORDERABLES - DEVICE Fi nal Result Performing Organization Address [facility] de Phone Number [facility] [place] [address] * ECG 12 lead (11/23/2024 6:23 PM CDT) Ventricular Rate EKG/Min 84 BPM [facility] Atrial Rate 84 BPM [facility] SD-Interval (MSEC) 118 ms [facility] QRS-Interval (MSEC) 70 ms [facility] QT-Interval (MSEC) 426 ms [facility] QTc 503 ms [facility] P Virgie 23 degrees [facility] R Virgie 44 degrees [facility] T Virgie 136 degrees [facility] Diagnosis Normal sinus rhythm T wave abnormality, consider lateral ischemia Prolonged QT Abnormal ECG When compared with ECG of 20-NOV-2024 13:20, No significant change was found Confirmed by SHALINI RODRIGUEZ M.D ([id number]) on 11/27/2024 12:19:17 PM [facility] 11/23/2024 6:23 PM CDT 11/27/2024 12:19 PM CDT us Lee Elena MD ECG ORDERABLES Final Res ult Performing Organization Address [facility] Co de Phone Number [facility] * eGFR (11/22/2024 9:37 PM CDT) [facility] eGFR >90 >=60 mL/min/1. 73 [...] MD LAB BLOOD ORDERABLES Krystyna meyers Result [facility] [place] [address] * (ABNORMAL) Differential, auto (11/22/2024 9:37 PM CDT) [facility] Neutrophil abs 3.27 1.50 - 6.50 K/cumm Imm gran abs 0.06 0.00 - 0.10 K/cumm [facility] Lymphocyte abs 2.86 0.80 - 3.30 K/cumm [facility] Monocyte abs 0.70 0.20 - 0.80 K/cumm [facility] Eosinophil abs 0.15 0.00 - 0.50 K/cumm [facility] Basophil abs 0.11(H) 0.00 - 0.10 K/cumm [facility] Neutrophil pct 45.8 % [facility] Comment: Interpretive Data Percent cell count reference ranges are not reported, since discordance with absolute values may lead to misinterpretation of CBC data. Current Interpretive Data was last revised on 2017. Imm gran pct 0.8 % [facility] Comment: Interpretive Data Percent cell count reference ranges are not reported, since discordance with absolute values may lead to misinterpretation of CBC data. Current Interpretive Data was last revised on 2017. Lymphocyte pct 40.0 % [facility] Comment: Interpretive Data Percent cell count reference ranges are not reported, since discordance with absolute values may lead to misinterpretation of CBC data. Current Interpretive Data was last revised on 2017. Monocyte pct 9.8 % [facility] Comment: Interpretive Data Percent cell count reference ranges are not reported, since discordance with absolute values may lead to misinterpretation of CBC data. Current Interpretive Data was last revised on 2017. Eosinophil pct 2.1 % [facility] Comment: Interpretive Data Percent cell count reference ranges are not reported, since discordance with absolute values may lead to misinterpretation of CBC data. Current Interpretive Data was last revised on 2017. Basophil pct 1.5 % [facility] Comment: Interpretive Data Percent cell count reference ranges are not reported, since discordance with absolute values may lead to misinterpretation of CBC data. Current Interpretive Data was last revised on 2017. Blood 11/22/2024 9:37 PM CDT 11/22/2024 10:34 PM CDT us Lee Elena MD LAB BLOOD ORDERABLES Krystyna meyers Result [facility] [place] [address] * (ABNORMAL) CBC with auto differential (11/22/2024 9:37 PM CDT) WBC 7.15 3.80 - 9.90 K/cumm Hgb 9.4(L) 11.9 - 15.5 g/dL [facility] Hct 28.9(L) 35.6 - 45.5 % [facility] Plt 542(H) 150 - 400 K/cumm [facility] MPV 9.4 9.1 - 12.3 fL [facility] RBC 2.81(L) 3.90 - 5.20 M/cumm [facility] MCV 102.8(H) 81.3 - 96.4 fL [facility] MCH 33.5(H) 27.1 - 33.3 pg [facility] MCHC 32.5 32.3 - 35.7 g/dL [facility] RDW CV 19.6(H) 11.1 - 14.9 % [facility] RDW SD 73.3(H) 35.7 - 48.1 fL [facility] NRBC abs 0.00 0.00 - 0.01 K/cumm [facility] Blood 11/22/2024 9:37 PM CDT 11/22/2024 10:34 PM CDT Lee Elena MD LAB BLOOD ORDERABLES Krysytna l Result Performing Organization Address [facility] de Phone Number [facility] Department [place] [address] * Protime-INR (11/22/2024 9:37 PM CDT) PT 10.1 9.7 - 13.0 sec INR 0.94 0.90 - 1.20 [facility] Comment: Interpretive data Oral [...] ORDERABLES Krystyna l Result Performing Organization Address [facility] Co de Phone Number [facility] [place] [address] * (ABNORMAL) Phosphorus (11/22/2024 9:37 PM CDT) [facility] Phosphorus, pl 4.9(H) 2.3 - 4.5 mg/dL Blood 11/22/2024 9:37 PM CDT 11/22/2024 10:33 PM CDT Lee Elena MD LAB BLOOD ORDERAB[place] [address] * Magnesium (11/22/2024 9:37 PM CDT) [facility] Magnesium 1.6 1.4 - 2.5 mg/dL Blood 11/22/2024 9:37 PM CDT 11/22/2024 10:33 PM CDT Lee Elena MD LAB BLOOD ORDERABLES Krystyna l Result Performing Organization Address City/[facility] [place] [address] * (ABNORMAL) Hepatic function panel (11/22/2024 9:37 PM CDT) [facility] Bilirubin, total 0.4 0.1 - 1.2 mg/dL Bilirubin, direct 0.2 0.1 - 0.3 mg/dL [facility] Protein, pl 6.0(L) 6.5 - 8.5 g/dL [facility] Albumin 2.6(L) 3.5 - 5.0 g/dL [facility] Alk phos 163(H) 40 - 130 Units/L [facility] ALT 12 7 - 45 Units/L [facility] AST 41 10 - 45 Units/L [facility] Blood 11/22/2024 9:37 PM CDT 11/22/2024 10:33 PM CDT Lee Elena MD LAB BLOOD ORDERABLES Krystyna meyers Result Performing Organization Address City/[facility]/ZIP Co de Phone Number [facility] Department [place] [address] * (ABNORMAL) Basic metabolic panel (11/22/2024 9:37 PM CDT) [facility] Sodium 138 135 - 145 mmol/L Potassium, pl 4.3 3.3 - 4.9 mmol/L [facility] Chloride 97 97 - 110 mmol/L [facility] CO2 32 22 - 32 mmol/L [facility] Anion gap 9 2 - 15 mmol/L [facility] BUN 17 6 - 25 mg/dL [facility] Creatinine 0.52(L) 0.60 - 1.10 mg/dL [facility] Glucose 104 70 - 199 mg/dL [facility] Comment: Interpretive Data Fasting [...] 2022. Calcium 8.8 8.5 - 10.3 mg/dL [facility] Blood 11/22/2024 9:37 PM CDT 11/22/2024 10:33 PM CDT Lee Elena MD LAB BLOOD ORDERABLES Krystyna meyers Result Performing Organization Address [facility]/ZIP Co de Phone Number [facility] Department [place] [address] * eGFR (11/21/2024 10:49 PM CDT) [facility] eGFR >90 >=60 mL/min/1. 73 [...] MD LAB BLOOD ORDERABLES Krystyna meyers Result [facility] Department [place] [address] * (ABNORMAL) Differential, auto (11/21/2024 10:49 PM CDT) [facility] Neutrophil abs 2.76 1.50 - 6.50 K/cumm Imm gran abs 0.05 0.00 - 0.10 K/cumm [facility] Lymphocyte abs 3.11 0.80 - 3.30 K/cumm [facility] Monocyte abs 0.61 0.20 - 0.80 K/cumm [facility] Eosinophil abs 0.17 0.00 - 0.50 K/cumm [facility] Basophil abs 0.14(H) 0.00 - 0.10 K/cumm [facility] Neutrophil pct 40.4 % [facility] Comment: Interpretive Data Percent cell count reference ranges are not reported, since discordance with absolute values may lead to misinterpretation of CBC data. Current Interpretive Data was last revised on 2017. Imm gran pct 0.7 % [facility] Comment: Interpretive Data Percent cell count reference ranges are not reported, since discordance with absolute values may lead to misinterpretation of CBC data. Current Interpretive Data was last revised on 2017. Lymphocyte pct 45.5 % [facility] Comment: Interpretive Data Percent cell count reference ranges are not reported, since discordance with absolute values may lead to misinterpretation of CBC data. Current Interpretive Data was last revised on 2017. Monocyte pct 8.9 % [facility] Comment: Interpretive Data Percent cell count reference ranges are not reported, since discordance with absolute values may lead to misinterpretation of CBC data. Current Interpretive Data was last revised on 2017. Eosinophil pct 2.5 % [facility] Comment: Interpretive Data Percent cell count reference ranges are not reported, since discordance with absolute values may lead to misinterpretation of CBC data. Current Interpretive Data was last revised on 2017. Basophil pct 2.0 % [facility] Comment: Interpretive Data Percent cell count reference ranges are not reported, since discordance with absolute values may lead to misinterpretation of CBC data. Current Interpretive Data was last revised on 2017. Blood 11/21/2024 10:4 9 PM CDT 11/22/2024 12:33 AM CDT Lee Elena MD LAB BLOOD ORDERABLES Krystyna meyers Result [facility] Department [place] [address] * (ABNORMAL) CBC with auto differential (11/21/2024 10:49 PM CDT) WBC 6.84 3.80 - 9.90 K/cumm Hgb 10.1(L) 11.9 - 15.5 g/dL [facility] Hct 30.3(L) 35.6 - 45.5 % [facility] Plt 610(H) 150 - 400 K/cumm [facility] MPV 9.3 9.1 - 12.3 fL [facility] RBC 2.98(L) 3.90 - 5.20 M/cumm [facility] MCV 101.7(H) 81.3 - 96.4 fL [facility] MCH 33.9(H) 27.1 - 33.3 pg [facility] MCHC 33.3 32.3 - 35.7 g/dL [facility] RDW CV 19.7(H) 11.1 - 14.9 % [facility] RDW SD 71.9(H) 35.7 - 48.1 fL [facility] NRBC abs 0.00 0.00 - 0.01 K/cumm [facility] Blood 11/21/2024 10:4 9 PM CDT 11/22/2024 12:33 AM CDT Lee Elena MD LAB BLOOD ORDERABLES Krystyna l Result Performing Organization Address [facility] de Phone Number [facility] Department [place] [address] * Protime-INR (11/21/2024 10:49 PM CDT) PT 10.7 9.7 - 13.0 sec INR 0.99 0.90 - 1.20 [facility] Comment: Interpretive data Oral [...] ORDERABLES Krystyna l Result Performing Organization Address [facility] de Phone Number [facility] Department [place] [address] * (ABNORMAL) Phosphorus (11/21/2024 10:49 PM CDT) Pathologist [facility] Phosphorus, pl 5.4(H) 2.3 - 4.5 mg/dL Blood 11/21/2024 10:4 9 PM CDT 11/22/2024 12:32 AM CDT Lee Elena MD LAB BLOOD ORDERABLES Krystyna l Result Performing Organization Address City/[facility]/[place] [address] * Magnesium (11/21/2024 10:49 PM CDT) [facility] Magnesium 1.8 1.4 - 2.5 mg/dL Blood 11/21/2024 10:4 9 PM CDT 11/22/2024 12:32 AM CDT Lee Elena MD LAB BLOOD ORDERABLES Krystyna l Result Performing Organization Address [facility] [place] [address] * (ABNORMAL) Hepatic function panel (11/21/2024 10:49 PM CDT) Pathologist [facility] Bilirubin, total 0.4 0.1 - 1.2 mg/dL Bilirubin, direct 0.3 0.1 - 0.3 mg/dL [facility] Protein, pl 6.2(L) 6.5 - 8.5 g/dL [facility] Albumin 2.4(L) 3.5 - 5.0 g/dL [facility] Alk phos 173(H) 40 - 130 Units/L [facility] ALT 12 7 - 45 Units/L [facility] AST 41 10 - 45 Units/L [facility] Blood 11/21/2024 10:4 9 PM CDT 11/22/2024 12:32 AM CDT Lee Elena MD LAB BLOOD ORDERABLES Krystyna meyers Result [facility] Department [place] [address] * (ABNORMAL) Basic metabolic panel (11/21/2024 10:49 PM CDT) [facility] Sodium 141 135 - 145 mmol/L Potassium, pl 3.9 3.3 - 4.9 mmol/L [facility] Chloride 100 97 - 110 mmol/L [facility] CO2 31 22 - 32 mmol/L [facility] Anion gap 10 2 - 15 mmol/L [facility] BUN 16 6 - 25 mg/dL [facility] Creatinine 0.39(L) 0.60 - 1.10 mg/dL [facility] Glucose 96 70 - 199 mg/dL [facility] Comment: Interpretive Data Fasting [...] 2022. Calcium 9.1 8.5 - 10.3 mg/dL [facility] Blood 11/21/2024 10:4 9 PM CDT 11/22/2024 12:32 AM CDT Lee Elena MD LAB BLOOD ORDERABLES Krystyna meyers Result Performing Organization Address [facility]/ZIP Co de Phone Number [facility] [place] [address] * Potassium, whole blood (11/20/2024 10:45 PM CDT) Pathologist [facility] Potassium, bld 4.0 3.3 - 4.9 mmol/L Blood 11/20/2024 10:4 5 PM CDT 11/20/2024 10:51 PM CDT us Martita Hussein MD LAB BLOOD ORDERABLE S Final Result Performing Organization Address City/[facility]/ZIP Co de Phone Number [facility] [place] [address] * eGFR (11/20/2024 7:07 PM CDT) Pathologist [facility] eGFR >90 >=60 mL/min/1. 73 m2 Comment: [...] ORDERABLES Krystyna l Result Performing Organization Address City/[facility]/ZIP Co de Phone Number [facility] [place] [address] * Differential, auto (11/20/2024 7:07 PM CDT) Pathologist [facility] Neutrophil abs 3.09 1.50 - 6.50 K/cumm Imm gran abs 0.09 0.00 - 0.10 K/cumm [facility] Lymphocyte abs 3.30 0.80 - 3.30 K/cumm [facility] Monocyte abs 0.65 0.20 - 0.80 K/cumm [facility] Eosinophil abs 0.15 0.00 - 0.50 K/cumm [facility] Basophil abs 0.09 0.00 - 0.10 K/cumm [facility] Neutrophil pct 42.0 % [facility] Comment: Interpretive Data Percent cell count reference ranges are not reported, since discordance with absolute values may lead to misinterpretation of CBC data. Current Interpretive Data was last revised on 2017. Imm gran pct 1.2 % [facility] Comment: Interpretive Data Percent cell count reference ranges are not reported, since discordance with absolute values may lead to misinterpretation of CBC data. Current Interpretive Data was last revised on 2017. Lymphocyte pct 44.8 % [facility] Comment: Interpretive Data Percent cell count reference ranges are not reported, since discordance with absolute values may lead to misinterpretation of CBC data. Current Interpretive Data was last revised on 2017. Monocyte pct 8.8 % [facility] Comment: Interpretive Data Percent cell count reference ranges are not reported, since discordance with absolute values may lead to misinterpretation of CBC data. Current Interpretive Data was last revised on 2017. Eosinophil pct 2.0 % [facility] Comment: Interpretive Data Percent cell count reference ranges are not reported, since discordance with absolute values may lead to misinterpretation of CBC data. Current Interpretive Data was last revised on 2017. Basophil pct 1.2 % [facility] Comment: Interpretive Data Percent cell count reference ranges are not reported, since discordance with absolute values may lead to misinterpretation of CBC data. Current Interpretive Data was last revised on 2017. Blood 11/20/2024 7:07 PM CDT 11/20/2024 7:32 PM CDT Lee Elena MD LAB BLOOD ORDERABLES Krystyna l Result Performing Organization Address [facility] Co de Phone Number [facility] [place] [address] * (ABNORMAL) CBC with auto differential (11/20/2024 7:07 PM CDT) [facility] WBC 7.37 3.80 - 9.90 K/cumm Hgb 10.1(L) 11.9 - 15.5 g/dL [facility] Hct 31.3(L) 35.6 - 45.5 % [facility] Plt 651(H) 150 - 400 K/cumm [facility] MPV 9.4 9.1 - 12.3 fL [facility] RBC 3.07(L) 3.90 - 5.20 M/cumm [facility] MCV 102.0(H) 81.3 - 96.4 fL [facility] MCH 32.9 27.1 - 33.3 pg [facility] MCHC 32.3 32.3 - 35.7 g/dL [facility] RDW CV 20.5(H) 11.1 - 14.9 % [facility] RDW SD 76.1(H) 35.7 - 48.1 fL [facility] NRBC abs 0.00 0.00 - 0.01 K/cumm [facility] Blood 11/20/2024 7:07 PM CDT 11/20/2024 7:32 PM CDT Lee Elena MD LAB BLOOD ORDERABLES Krystyna l Result Performing Organization Address [facility]/ZIP Co de Phone Number [facility] [place] [address] * (ABNORMAL) aPTT (11/20/2024 7:07 PM CDT) Pathologist [facility] aPTT 52(H) 28 - 38 sec Comment: Interpretive Data Heparin therapeutic range: 66.0 - 100.0 seconds. Range based on correlation with therapeutic heparin activity range of 0.3 - 0.7 Units/mL. Current interpretive data was last revised on 2023. Blood 11/20/2024 7:07 PM CDT 11/20/2024 7:38 PM CDT Narrative [facility] - 11/20/2024 7:48 PM CDT Baseline prior to enoxaparin initiation. Alex Bailey MD LAB BLOOD ORDERABLES Final Resu lt Performing Organization Address [facility] de Phone Number [facility] [place] [address] * Protime-INR (11/20/2024 7:07 PM CDT) PT 11.1 9.7 - 13.0 sec INR 1.03 0.90 - 1.20 [facility] Comment: Interpretive data Oral anticoagulant therapeutic ranges: Venous thromboembolism prophylaxis or treatment: 2.0-3.0 CARDIOLOGY Standard range: 2.0-3.0 High-intensity range: 2.5-3.5 Refer to indication-specific guidelines for appropriate target ranges for prosthetic heart valve replacement. Current interpretive data was last revised on 2019. Blood 11/20/2024 7:07 PM CDT 11/20/2024 7:34 PM CDT Result [facility] Lee Elena MD LAB BLOOD ORDERABLES Krystyna l Result Performing Organization Address [facility] de Phone Number [facility] [place] [address] * (ABNORMAL) Phosphorus (11/20/2024 7:07 PM CDT) Phosphorus, pl 5.4(H) 2.3 - 4.5 mg/dL Blood 11/20/2024 7:07 PM CDT 11/20/2024 7:32 PM CDT Lee Elena MD LAB BLOOD ORDERABLES Krystyna l Result [facility] [place] [address] * Magnesium (11/20/2024 7:07 PM CDT) [facility] Magnesium 1.7 1.4 - 2.5 mg/dL Blood 11/20/2024 7:07 PM CDT 11/20/2024 7:32 PM CDT Lee Elena MD LAB BLOOD ORDERABLES Krystyna l Result Performing Organization Address [facility] Co de Phone Number [facility] [place] [address] * (ABNORMAL) Hepatic function panel (11/20/2024 7:07 PM CDT) [facility] Bilirubin, total 0.4 0.1 - 1.2 mg/dL Bilirubin, direct 0.2 0.1 - 0.3 mg/dL [facility] Comment:Hemolyzed; result ma y be falsely decreased Protein, pl 6.3(L) 6.5 - 8.5 g/dL [facility] Albumin 2.6(L) 3.5 - 5.0 g/dL [facility] Alk phos 193(H) 40 - 130 Units/L [facility] ALT 12 7 - 45 Units/L [facility] AST 55(H) 10 - 45 Units/L [facility] Comment:Hemolyzed; result ma y be falsely elevated Blood 11/20/2024 7:07 PM CDT 11/20/2024 7:32 PM CDT Lee Elena MD LAB BLOOD ORDERABLES Krystyna l Result Performing Organization Address City/[facility]/ZIP Co de Phone Number [facility] [place] [address] * Basic metabolic panel (11/20/2024 7:07 PM CDT) [facility] Sodium 142 135 - 145 mmol/L Potassium, pl 4.3 3.3 - 4.9 mmol/L [facility] Comment:Hemolyzed; Potassium value may be falsely elevated by as much as 0.3-0.5 mmol/L. Suggest redraw and reanalysis. Chloride 103 97 - 110 mmol/L [facility] CO2 27 22 - 32 mmol/L [facility] Anion gap 12 2 - 15 mmol/L [facility] BUN 16 6 - 25 mg/dL [facility] Creatinine 0.66 0.60 - 1.10 mg/dL [facility] Glucose 95 70 - 199 mg/dL [facility] Comment: Interpretive Data Fasting [...] 2022. Calcium 9.0 8.5 - 10.3 mg/dL [facility] Blood 11/20/2024 7:07 PM CDT 11/20/2024 7:32 PM CDT Lee Elena MD LAB BLOOD ORDERABLES Krystyna meyers Result [facility] [place] [address] * ECG 12 lead (11/20/2024 1:20 PM CDT) [facility] Ventricular Rate EKG/Min 78 BPM [facility] Atrial Rate 78 BPM [facility] SD-Interval (MSEC) 126 ms [facility] QRS-Interval (MSEC) 68 ms [facility] QT-Interval (MSEC) 448 ms [facility] QTc 510 ms [facility] P Virgie 22 degrees [facility] R Virgie 55 degrees [facility] T Virgie 124 degrees [facility] Diagnosis Normal sinus rhythm T wave abnormality, consider lateral ischemia Prolonged QT Abnormal ECG When compared with ECG of 18-NOV-2024 13:40, (unconfirmed) Nonspecific T wave abnormality no longer evident in Inferior leads T wave inversion less evident in Lateral leads Confirmed by SHALINI RODRIGUEZ M.D ([id number]) on 11/21/2024 9:46:31 AM [facility] 11/20/2024 1:20 PM CDT 11/21/2024 9:46 AM CDT us Lee Elena MD ECG ORDERABLES Final Res ult Performing Organization Address City/[facility]/ZIP Co de Phone Number [facility] * PathAR Specimen Tracking Order Blood (11/20/2024 10:37 AM CDT) Pathologist [facility] Tracking Order Received Blood 11/20/2024 10:3 7 AM CDT 11/20/2024 11:49 AM CDT Narrative [facility] - 11/29/2024 1:58 PM CDT Please read the Path[facility] requisition for specimen collection requirements. us Akash Sharma MD LAB BODY FLUIDS AND STOOLS ORDERABLES Final Result Performing Organization Address [facility] Co de Phone Number [facility] [place] [address] * Genomics ([facility]) (11/20/2024 12:00 AM CDT) Blood (Peripheral Blood For Pathologist Review) 11/20/2024 11/20/2024 Narrative [facility] DIAG[facility] - CYTOGENETICS - 12/19/2024 12:31 PM CDT REPORT IMAGES AND/OR SCANNED DOCUMENTS ONLY VIEWABLE IN PDF FORMAT Akash Sharma MD LAB GENETIC TEST ING Edited Result - Final [facility] - CYTOGENETICS [address] [place] [address] * eGFR (11/19/2024 8:20 PM CDT) eGFR [...] MD LAB BLOOD ORDERABLES Krystyna meyers Result [facility] [place] [address] * Differential, auto (11/19/2024 8:20 PM CDT) Neutrophil abs 3.74 1.50 - 6.50 K/cumm Imm gran abs 0.06 0.00 - 0.10 K/cumm [facility] Lymphocyte abs 2.61 0.80 - 3.30 K/cumm [facility] Monocyte abs 0.72 0.20 - 0.80 K/cumm [facility] Eosinophil abs 0.09 0.00 - 0.50 K/cumm [facility] Basophil abs 0.08 0.00 - 0.10 K/cumm [facility] Neutrophil pct 51.2 % [facility] Comment: Interpretive Data Percent cell count reference ranges are not reported, since discordance with absolute values may lead to misinterpretation of CBC data. Current Interpretive Data was last revised on 2017. Imm gran pct 0.8 % [facility] Comment: Interpretive Data Percent cell count reference ranges are not reported, since discordance with absolute values may lead to misinterpretation of CBC data. Current Interpretive Data was last revised on 2017. Lymphocyte pct 35.8 % [facility] Comment: Interpretive Data Percent cell count reference ranges are not reported, since discordance with absolute values may lead to misinterpretation of CBC data. Current Interpretive Data was last revised on 2017. Monocyte pct 9.9 % [facility] Comment: Interpretive Data Percent cell count reference ranges are not reported, since discordance with absolute values may lead to misinterpretation of CBC data. Current Interpretive Data was last revised on 2017. Eosinophil pct 1.2 % [facility] Comment: Interpretive Data Percent cell count reference ranges are not reported, since discordance with absolute values may lead to misinterpretation of CBC data. Current Interpretive Data was last revised on 2017. Basophil pct 1.1 % [facility] Comment: Interpretive Data Percent cell count reference ranges are not reported, since discordance with absolute values may lead to misinterpretation of CBC data. Current Interpretive Data was last revised on 2017. Blood 11/19/2024 8:20 PM CDT 11/19/2024 9:33 PM CDT us Lee Elena MD LAB BLOOD ORDERABLES Krystyna l Result [facility] [place] [address] * (ABNORMAL) CBC with auto differential (11/19/2024 8:20 PM CDT) WBC 7.30 3.80 - 9.90 K/cumm Hgb 9.1(L) 11.9 - 15.5 g/dL [facility] Hct 27.7(L) 35.6 - 45.5 % [facility] Plt 627(H) 150 - 400 K/cumm [facility] MPV 9.9 9.1 - 12.3 fL [facility] RBC 2.75(L) 3.90 - 5.20 M/cumm [facility] MCV 100.7(H) 81.3 - 96.4 fL [facility] MCH 33.1 27.1 - 33.3 pg [facility] MCHC 32.9 32.3 - 35.7 g/dL [facility] RDW CV 20.7(H) 11.1 - 14.9 % [facility] RDW SD 75.5(H) 35.7 - 48.1 fL [facility] NRBC abs 0.00 0.00 - 0.01 K/cumm [facility] Blood 11/19/2024 8:20 PM CDT 11/19/2024 9:33 PM CDT us Lee Elena MD LAB BLOOD ORDERABLES Krystyna meyers Result [facility] [place] [address] * Protime-INR (11/19/2024 8:20 PM CDT) PT 10.6 9.7 - 13.0 sec INR 0.98 0.90 - 1.20 [facility] Comment: Interpretive data Oral [...] ORDERABLES Krystyna l Result Performing Organization Address City/[facility] Co de Phone Number [facility] [place] [address] * Phosphorus (11/19/2024 8:20 PM CDT) Pathologist [facility] Phosphorus, pl 4.2 2.3 - 4.5 mg/dL Blood 11/19/2024 8:20 PM CDT 11/19/2024 9:32 PM CDT Lee Elena MD LAB BLOOD ORDERABLES Krystyna l Result Performing Organization Address [facility] Co de Phone Number [facility] [place] [address] * Magnesium (11/19/2024 8:20 PM CDT) [facility] Magnesium 2.0 1.4 - 2.5 mg/dL Blood 11/19/2024 8:20 PM CDT 11/19/2024 9:32 PM CDT Lee Elena MD LAB BLOOD ORDERABLES Krystyna l Result Performing Organization Address [facility] Co de Phone Number [facility] [place] [address] * (ABNORMAL) Hepatic function panel (11/19/2024 8:20 PM CDT) [facility] Bilirubin, total 0.4 0.1 - 1.2 mg/dL Bilirubin, direct 0.3 0.1 - 0.3 mg/dL [facility] Protein, pl 5.7(L) 6.5 - 8.5 g/dL [facility] Albumin 2.2(L) 3.5 - 5.0 g/dL [facility] Alk phos 189(H) 40 - 130 Units/L [facility] ALT 12 7 - 45 Units/L [facility] AST 49(H) 10 - 45 Units/L [facility] Blood 11/19/2024 8:20 PM CDT 11/19/2024 9:32 PM CDT Lee Elena MD LAB BLOOD ORDERABLES Krystyna l Result Performing Organization Address [facility] Co de Phone Number [facility] [place] [address] * (ABNORMAL) Basic metabolic panel (11/19/2024 8:20 PM CDT) Pathologist [facility] Sodium 138 135 - 145 mmol/L Potassium, pl 4.2 3.3 - 4.9 mmol/L [facility] Chloride 103 97 - 110 mmol/L [facility] CO2 28 22 - 32 mmol/L [facility] Anion gap 7 2 - 15 mmol/L [facility] BUN 15 6 - 25 mg/dL [facility] Creatinine 0.40(L) 0.60 - 1.10 mg/dL [facility] Glucose 93 70 - 199 mg/dL [facility] Comment: Interpretive Data Fasting [...] 2022. Calcium 8.4(L) 8.5 - 10.3 mg/dL [facility] Blood 11/19/2024 8:20 PM CDT 11/19/2024 9:32 PM CDT Lee Elena MD LAB BLOOD ORDERABLES Krystyna l Result Performing Organization Address [facility] Co de Phone Number [facility] [place] [address] * POCT glucose (11/19/2024 7:53 AM CDT) Pathologist [facility] Glucose, POC 112 70 - 199 mg/dL Blood 11/19/2024 7:53 AM CDT 11/19/2024 7:53 AM CDT us Alex Bailey MD LAB POCT ORDERABLES - DEVICE Fi nal Result [facility] [place] [address] * (ABNORMAL) Differential, auto (11/18/2024 9:53 PM CDT) [facility] Neutrophil abs 5.36 1.50 - 6.50 K/cumm Imm gran abs 0.06 0.00 - 0.10 K/cumm [facility] Lymphocyte abs 2.35 0.80 - 3.30 K/cumm [facility] Monocyte abs 0.81(H) 0.20 - 0.80 K/cumm [facility] Eosinophil abs 0.17 0.00 - 0.50 K/cumm [facility] Basophil abs 0.07 0.00 - 0.10 K/cumm [facility] Neutrophil pct 60.8 % [facility] Comment: Interpretive Data Percent cell count reference ranges are not reported, since discordance with absolute values may lead to misinterpretation of CBC data. Current Interpretive Data was last revised on 2017. Imm gran pct 0.7 % [facility] Comment: Interpretive Data Percent cell count reference ranges are not reported, since discordance with absolute values may lead to misinterpretation of CBC data. Current Interpretive Data was last revised on 2017. Lymphocyte pct 26.6 % [facility] Comment: Interpretive Data Percent cell count reference ranges are not reported, since discordance with absolute values may lead to misinterpretation of CBC data. Current Interpretive Data was last revised on 2017. Monocyte pct 9.2 % [facility] Comment: Interpretive Data Percent cell count reference ranges are not reported, since discordance with absolute values may lead to misinterpretation of CBC data. Current Interpretive Data was last revised on 2017. Eosinophil pct 1.9 % [facility] Comment: Interpretive Data Percent cell count reference ranges are not reported, since discordance with absolute values may lead to misinterpretation of CBC data. Current Interpretive Data was last revised on 2017. Basophil pct 0.8 % [facility] Comment: Interpretive Data Percent cell count reference ranges are not reported, since discordance with absolute values may lead to misinterpretation of CBC data. Current Interpretive Data was last revised on 2017. Blood 11/18/2024 9:53 PM CDT 11/18/2024 11:34 PM CDT Lee Elena MD LAB BLOOD ORDERABLES Krystyna meyers Result [facility] [place] [address] * (ABNORMAL) CBC with auto differential (11/18/2024 9:53 PM CDT) WBC 8.82 3.80 - 9.90 K/cumm Hgb 9.2(L) 11.9 - 15.5 g/dL [facility] Hct 27.9(L) 35.6 - 45.5 % [facility] Plt 649(H) 150 - 400 K/cumm [facility] MPV 9.9 9.1 - 12.3 fL [facility] RBC 2.79(L) 3.90 - 5.20 M/cumm [facility] MCV 100.0(H) 81.3 - 96.4 fL [facility] MCH 33.0 27.1 - 33.3 pg [facility] MCHC 33.0 32.3 - 35.7 g/dL [facility] RDW CV 20.7(H) 11.1 - 14.9 % [facility] RDW SD 74.5(H) 35.7 - 48.1 fL [facility] NRBC abs 0.00 0.00 - 0.01 K/cumm [facility] Blood 11/18/2024 9:53 PM CDT 11/18/2024 11:34 PM CDT Lee Elena MD LAB BLOOD ORDERABLES Krystyna l Result Performing Organization Address City/[facility]/ZIP Co de Phone Number [facility] [place] [address] * Blood culture Blood (11/18/2024 9:53 PM CDT) Report Final Report: No growth Blood 11/18/2024 9:53 PM CDT 11/19/2024 1:12 AM CDT Narrative [facility] - 11/23/2024 7:00 AM [...] performance characteristics have been verified by the [facility] Microbiology Laboratory. For questions about this culture, contact the Microbiology Laboratory at [phone]. Interpretive data was last revised on 24. us Lee Elena MD LAB MICROBIOLOGY - GENERA L ORDERABLES Final Result Performing Organization Address City/[facility]/ZIP Co de Phone Number [facility] [place] [address] * Protime-INR (11/18/2024 9:53 PM CDT) PT 10.8 9.7 - 13.0 sec INR 1.00 0.90 - 1.20 [facility] Comment: Interpretive data Oral anticoagulant therapeutic ranges: Venous thromboembolism prophylaxis or treatment: 2.0-3.0 CARDIOLOGY Standard range: 2.0-3.0 High-intensity range: 2.5-3.5 Refer to indication-specific guidelines for appropriate target ranges for prosthetic heart valve replacement. Current interpretive data was last revised on 2019. Blood 11/18/2024 9:53 PM CDT 11/18/2024 11:31 PM CDT us Lee Elena MD LAB BLOOD ORDERABLES Krystyna Result [facility] [place] [address] * eGFR (11/18/2024 3:57 PM CDT) eGFR [...] ORDERABLES Krystyna l Result Performing Organization Address [facility] Co de Phone Number [facility] [place] [address] * (ABNORMAL) Phosphorus (11/18/2024 3:57 PM CDT) Pathologist [facility] Phosphorus, pl 4.8(H) 2.3 - 4.5 mg/dL Blood 11/18/2024 3:57 PM CDT 11/18/2024 4:11 PM CDT Lee Elena MD LAB BLOOD ORDERABLES Krystyna l Result Performing Organization Address [facility] Co de Phone Number [facility] [place] [address] * Magnesium (11/18/2024 3:57 PM CDT) [facility] Magnesium 1.6 1.4 - 2.5 mg/dL Blood 11/18/2024 3:57 PM CDT 11/18/2024 4:11 PM CDT Lee Elena MD LAB BLOOD ORDERABLES Krystyna l Result Performing Organization Address [facility] de Phone Number [facility] [place] [address] * (ABNORMAL) Hepatic function panel (11/18/2024 3:57 PM CDT) Bilirubin, total 0.5 0.1 - 1.2 mg/dL Bilirubin, direct 0.4(H) 0.1 - 0.3 mg/dL [facility] Protein, pl 5.8(L) 6.5 - 8.5 g/dL [facility] Albumin 2.5(L) 3.5 - 5.0 g/dL [facility] Alk phos 207(H) 40 - 130 Units/L [facility] ALT 10 7 - 45 Units/L [facility] AST 43 10 - 45 Units/L [facility] Blood 11/18/2024 3:57 PM CDT 11/18/2024 4:11 PM CDT Lee Elena MD LAB BLOOD ORDERABLES Krystyna l Result [facility] [place] [address] * (ABNORMAL) Basic metabolic panel (11/18/2024 3:57 PM CDT) Pathologist [facility] Sodium 140 135 - 145 mmol/L Potassium, pl 4.2 3.3 - 4.9 mmol/L [facility] Chloride 102 97 - 110 mmol/L [facility] CO2 29 22 - 32 mmol/L [facility] Anion gap 9 2 - 15 mmol/L [facility] BUN 13 6 - 25 mg/dL [facility] Creatinine 0.44(L) 0.60 - 1.10 mg/dL [facility] Glucose 92 70 - 199 mg/dL [facility] Comment: Interpretive Data Fasting [...] 2022. Calcium 8.4(L) 8.5 - 10.3 mg/dL [facility] Blood 11/18/2024 3:57 PM CDT 11/18/2024 4:11 PM CDT us Lee Elena MD LAB BLOOD ORDERABLES Krystyna l Result Performing Organization Address [facility]/ZIP Co de Phone Number [facility] [place] [address] * ECG 12 lead (11/18/2024 1:40 PM CDT) Ventricular Rate EKG/Min 86 BPM [facility] Atrial Rate 86 BPM [facility] SD-Interval (MSEC) 104 ms [facility] QRS-Interval (MSEC) 74 ms [facility] QT-Interval (MSEC) 422 ms [facility] QTc 504 ms [facility] P Virgie 28 degrees [facility] R Virgie 78 degrees [facility] T Virgie 159 degrees [facility] Diagnosis Sinus rhythm with short SD T wave abnormality, consider lateral ischemia Prolonged QT Abnormal ECG When compared with ECG of 16-NOV-2024 07:09, Nonspecific T wave abnormality no longer evident in Anterior leads Inverted T waves have replaced nonspecific T wave abnormality in Lateral leads Confirmed by SHALINI RODRIGUEZ M.D ([id number]) on 11/20/2024 4:17:45 PM [facility] 11/18/2024 1:40 PM CDT 11/20/2024 4:17 PM CDT Lee Elena MD ECG ORDERABLES Final Res ult Performing Organization Address [facility] Co de Phone Number [facility] * POCT glucose (11/18/2024 12:02 AM CDT) Pathologist [facility] Glucose, POC 104 70 - 199 mg/dL Blood 11/18/2024 12:0 2 AM CDT 11/18/2024 12:02 AM CDT Lee Elena MD LAB POCT ORDERABLES - DEV ICE Final Result Performing Organization Address City/[facility]/ZIP Co de Phone Number [facility] [place] [address] * eGFR (11/17/2024 10:42 PM CDT) [facility] eGFR >90 >=60 mL/min/1. 73 [...] MD LAB BLOOD ORDERABLES Krystyna meyers Result [facility] [place] [address] * Differential, auto (11/17/2024 10:42 PM CDT) [facility] Neutrophil abs 4.62 1.50 - 6.50 K/cumm Imm gran abs 0.08 0.00 - 0.10 K/cumm [facility] Lymphocyte abs 2.27 0.80 - 3.30 K/cumm [facility] Monocyte abs 0.73 0.20 - 0.80 K/cumm [facility] Eosinophil abs 0.13 0.00 - 0.50 K/cumm [facility] Basophil abs 0.08 0.00 - 0.10 K/cumm [facility] Neutrophil pct 58.5 % [facility] Comment: Interpretive Data Percent cell count reference ranges are not reported, since discordance with absolute values may lead to misinterpretation of CBC data. Current Interpretive Data was last revised on 2017. Imm gran pct 1.0 % [facility] Comment: Interpretive Data Percent cell count reference ranges are not reported, since discordance with absolute values may lead to misinterpretation of CBC data. Current Interpretive Data was last revised on 2017. Lymphocyte pct 28.7 % [facility] Comment: Interpretive Data Percent cell count reference ranges are not reported, since discordance with absolute values may lead to misinterpretation of CBC data. Current Interpretive Data was last revised on 2017. Monocyte pct 9.2 % [facility] Comment: Interpretive Data Percent cell count reference ranges are not reported, since discordance with absolute values may lead to misinterpretation of CBC data. Current Interpretive Data was last revised on 2017. Eosinophil pct 1.6 % [facility] Comment: Interpretive Data Percent cell count reference ranges are not reported, since discordance with absolute values may lead to misinterpretation of CBC data. Current Interpretive Data was last revised on 2017. Basophil pct 1.0 % [facility] Comment: Interpretive Data Percent cell count reference ranges are not reported, since discordance with absolute values may lead to misinterpretation of CBC data. Current Interpretive Data was last revised on 2017. Blood 11/17/2024 10:4 2 PM CDT 11/17/2024 11:26 PM CDT Lee Elena MD LAB BLOOD ORDERABLES Krystyna meyers Result [facility] Department of Laboratories [place], [place] [id number] * (ABNORMAL) CBC with auto differential (11/17/2024 10:42 PM CDT) WBC 7.91 3.80 - 9.90 K/cumm Hgb 9.2(L) 11.9 - 15.5 g/dL [facility] Hct 27.9(L) 35.6 - 45.5 % [facility] Plt 666(H) 150 - 400 K/cumm [facility] MPV 10.0 9.1 - 12.3 fL [facility] RBC 2.81(L) 3.90 - 5.20 M/cumm [facility] MCV 99.3(H) 81.3 - 96.4 fL [facility] MCH 32.7 27.1 - 33.3 pg [facility] MCHC 33.0 32.3 - 35.7 g/dL [facility] RDW CV 21.2(H) 11.1 - 14.9 % [facility] RDW SD 75.9(H) 35.7 - 48.1 fL [facility] NRBC abs 0.00 0.00 - 0.01 K/cumm [facility] Blood 11/17/2024 10:4 2 PM CDT 11/17/2024 11:26 PM CDT Lee Elena MD LAB BLOOD ORDERABLES Krystyna meyers Result [facility] Department [place] [address] * Blood culture Blood (11/17/2024 10:42 PM CDT) Report Final Report: No growth Blood 11/17/2024 10:4 2 PM CDT 11/17/2024 11:21 PM CDT Narrative [facility] - 11/22/2024 7:00 AM CDT Collection->Peripheral 1. [...] performance characteristics have been verified by the [facility] Microbiology Laboratory. For questions about this culture, contact the Microbiology Laboratory at [phone]. Interpretive data was last revised on 24. Lee Elena MD LAB MICROBIOLOGY - GENERA L ORDERABLES Final Result Performing Organization Address [facility] Co de Phone Number [facility] [place] [address] * Protime-INR (11/17/2024 10:42 PM CDT) PT 12.0 9.7 - 13.0 sec INR 1.11 0.90 - 1.20 [facility] Comment: Interpretive data Oral [...] ORDERABLES Krystyna l Result Performing Organization Address [facility] Co de Phone Number [facility] [place] [address] * Phosphorus (11/17/2024 10:42 PM CDT) Phosphorus, pl 3.7 2.3 - 4.5 mg/dL Blood 11/17/2024 10:4 2 PM CDT 11/17/2024 11:26 PM CDT Lee Elena MD LAB BLOOD ORDERABLES Krystyna l Result Performing Organization Address City/[facility]/ZIP Co de Phone Number [facility] [place] [address] * Magnesium (11/17/2024 10:42 PM CDT) Pathologist [facility] Magnesium 1.8 1.4 - 2.5 mg/dL Blood 11/17/2024 10:4 2 PM CDT 11/17/2024 11:26 PM CDT Lee Elena MD LAB BLOOD ORDERABLES Krystyna l Result Performing Organization Address [facility] [place] [address] * (ABNORMAL) Hepatic function panel (11/17/2024 10:42 PM CDT) Bilirubin, total 0.5 0.1 - 1.2 mg/dL Bilirubin, direct 0.4(H) 0.1 - 0.3 mg/dL [facility] Protein, pl 5.4(L) 6.5 - 8.5 g/dL [facility] Albumin 2.2(L) 3.5 - 5.0 g/dL [facility] Alk phos 186(H) 40 - 130 Units/L [facility] ALT 11 7 - 45 Units/L [facility] AST 44 10 - 45 Units/L [facility] Blood 11/17/2024 10:4 2 PM CDT 11/17/2024 11:26 PM CDT Lee Elena MD LAB BLOOD ORDERABLES Krystyna l Result Performing Organization Address [facility] [place] [address] * (ABNORMAL) Basic metabolic panel (11/17/2024 10:42 PM CDT) Sodium 139 135 - 145 mmol/L Potassium, pl 4.2 3.3 - 4.9 mmol/L [facility] Chloride 106 97 - 110 mmol/L [facility] CO2 28 22 - 32 mmol/L [facility] Anion gap 5 2 - 15 mmol/L [facility] BUN 10 6 - 25 mg/dL [facility] Creatinine 0.43(L) 0.60 - 1.10 mg/dL [facility] Glucose 99 70 - 199 mg/dL [facility] Comment: Interpretive Data Fasting [...] 2022. Calcium 8.4(L) 8.5 - 10.3 mg/dL [facility] Blood 11/17/2024 10:4 2 PM CDT 11/17/2024 11:26 PM CDT Lee Elena MD LAB BLOOD ORDERABLES Krystyna l Result [facility] Department [place] [address] * POCT glucose (11/17/2024 7:38 PM CDT) Glucose, POC 101 70 - 199 mg/dL Blood 11/17/2024 7:38 PM CDT 11/17/2024 7:38 PM CDT Lee Elena MD LAB POCT ORDERABLES - DEV ICE Final Result [facility] [place] [address] * POCT glucose (11/17/2024 3:39 PM CDT) Glucose, POC 95 70 - 199 mg/dL Blood 11/17/2024 3:39 PM CDT 11/17/2024 3:39 PM CDT us Lee Elena MD LAB POCT ORDERABLES - DEV ICE Final Result Performing Organization Address [facility] [place] [address] * POCT glucose (11/17/2024 11:25 AM CDT) Glucose, POC 99 70 - 199 mg/dL Blood 11/17/2024 11:2 5 AM CDT 11/17/2024 11:25 AM CDT us Lee Elena MD LAB POCT ORDERABLES - DEV ICE Final Result Performing Organization Address City/[facility]/ZIP Co de Phone Number [facility] [place] [address] * POCT glucose (11/17/2024 7:43 AM CDT) Glucose, POC 108 70 - 199 mg/dL Blood 11/17/2024 7:43 AM CDT 11/17/2024 7:43 AM CDT us Lee Elena MD LAB POCT ORDERABLES - DEV ICE Final Result Performing Organization Address City/[facility]/ZIP Co de Phone Number [facility] [place] [address] * POCT glucose (11/17/2024 5:04 AM CDT) Glucose, POC 110 70 - 199 mg/dL Blood 11/17/2024 5:04 AM CDT 11/17/2024 5:04 AM CDT Lee Elena MD LAB POCT ORDERABLES - DEV ICE Final Result Performing Organization Address City/[facility]/ZIP Co de Phone Number [facility] [place] [address] * POCT glucose (11/17/2024 12:06 AM CDT) Glucose, POC 102 70 - 199 mg/dL Blood 11/17/2024 12:0 6 AM CDT 11/17/2024 12:06 AM CDT Lee Elena MD LAB POCT ORDERABLES - DEV ICE Final Result Performing Organization Address City/[facility] de Phone Number [facility] [place] [address] * eGFR (11/16/2024 9:38 PM CDT) Pathologist [facility] eGFR >90 >=60 mL/min/1. 73 m2 Comment: [...] MD LAB BLOOD ORDERABLES Krystyna meyers Result [facility] [place] [address] * (ABNORMAL) Differential, auto (11/16/2024 9:38 PM CDT) Neutrophil abs 9.72(H) 1.50 - 6.50 K/cumm Imm gran abs 0.14(H) 0.00 - 0.10 K/cumm [facility] Lymphocyte abs 1.26 0.80 - 3.30 K/cumm [facility] Monocyte abs 0.53 0.20 - 0.80 K/cumm [facility] Eosinophil abs 0.06 0.00 - 0.50 K/cumm [facility] Basophil abs 0.08 0.00 - 0.10 K/cumm [facility] Neutrophil pct 82.4 % [facility] Comment: Interpretive Data Percent cell count reference ranges are not reported, since discordance with absolute values may lead to misinterpretation of CBC data. Current Interpretive Data was last revised on 2017. Imm gran pct 1.2 % [facility] Comment: Interpretive Data Percent cell count reference ranges are not reported, since discordance with absolute values may lead to misinterpretation of CBC data. Current Interpretive Data was last revised on 2017. Lymphocyte pct 10.7 % [facility] Comment: Interpretive Data Percent cell count reference ranges are not reported, since discordance with absolute values may lead to misinterpretation of CBC data. Current Interpretive Data was last revised on 2017. Monocyte pct 4.5 % [facility] Comment: Interpretive Data Percent cell count reference ranges are not reported, since discordance with absolute values may lead to misinterpretation of CBC data. Current Interpretive Data was last revised on 2017. Eosinophil pct 0.5 % [facility] Comment: Interpretive Data Percent cell count reference ranges are not reported, since discordance with absolute values may lead to misinterpretation of CBC data. Current Interpretive Data was last revised on 2017. Basophil pct 0.7 % [facility] Comment: Interpretive Data Percent cell count reference ranges are not reported, since discordance with absolute values may lead to misinterpretation of CBC data. Current Interpretive Data was last revised on 2017. Blood 11/16/2024 9:38 PM CDT 11/16/2024 10:38 PM CDT us Lee Elena MD LAB BLOOD ORDERABLES Krystyna meyers Result [facility] [place] [address] * (ABNORMAL) CBC with auto differential (11/16/2024 9:38 PM CDT) WBC 11.79(H) 3.80 - 9.90 K/cumm Hgb 10.1(L) 11.9 - 15.5 g/dL [facility] Hct 30.2(L) 35.6 - 45.5 % [facility] Plt 718(H) 150 - 400 K/cumm [facility] MPV 10.5 9.1 - 12.3 fL [facility] RBC 3.12(L) 3.90 - 5.20 M/cumm [facility] MCV 96.8(H) 81.3 - 96.4 fL [facility] MCH 32.4 27.1 - 33.3 pg [facility] MCHC 33.4 32.3 - 35.7 g/dL [facility] RDW CV 21.5(H) 11.1 - 14.9 % [facility] RDW SD 73.1(H) 35.7 - 48.1 fL [facility] NRBC abs 0.00 0.00 - 0.01 K/cumm [facility] Blood 11/16/2024 9:38 PM CDT 11/16/2024 10:38 PM CDT Lee Elena MD LAB BLOOD ORDERABLES Krystyna l Result Performing Organization Address City/[facility]/ZIP Co de Phone Number [facility] Department [place] [address] * Blood culture Blood (11/16/2024 9:38 PM CDT) Report Final Report: No growth Blood 11/16/2024 9:38 PM CDT 11/16/2024 10:38 PM CDT Narrative [facility] - 11/21/2024 7:00 AM CDT From [...] performance characteristics have been verified by the [facility] Microbiology Laboratory. For questions about this culture, contact the Microbiology Laboratory at [phone]. Interpretive data was last revised on 24. us Lee Elena MD LAB MICROBIOLOGY - GENERA L ORDERABLES Final Result Performing Organization Address City/[facility]/ZIP Co de Phone Number [facility] [place] [address] * Protime-INR (11/16/2024 9:38 PM CDT) PT 12.6 9.7 - 13.0 sec INR 1.16 0.90 - 1.20 [facility] Comment: Interpretive data Oral [...] ORDERABLES Krystyna l Result Performing Organization Address [facility] Co de Phone Number [facility] [place] [address] * Phosphorus (11/16/2024 9:38 PM CDT) Pathologist [facility] Phosphorus, pl 4.1 2.3 - 4.5 mg/dL Blood 11/16/2024 9:38 PM CDT 11/16/2024 10:37 PM CDT Lee Elena MD LAB BLOOD ORDERABLES Krystyna l Result Performing Organization Address [facility] de Phone Number [facility] Department [place] [address] * Magnesium (11/16/2024 9:38 PM CDT) Pathologist [facility] Magnesium 1.5 1.4 - 2.5 mg/dL Blood 11/16/2024 9:38 PM CDT 11/16/2024 10:37 PM CDT Lee Eelna MD LAB BLOOD ORDERABLES Krystyna l Result Performing Organization Address [facility] Co de Phone Number [facility] Department [place] [address] * (ABNORMAL) Hepatic function panel (11/16/2024 9:38 PM CDT) [facility] Bilirubin, total 0.6 0.1 - 1.2 mg/dL Bilirubin, direct 0.4(H) 0.1 - 0.3 mg/dL [facility] Protein, pl 5.7(L) 6.5 - 8.5 g/dL [facility] Albumin 2.0(L) 3.5 - 5.0 g/dL [facility] Alk phos 201(H) 40 - 130 Units/L [facility] ALT 21 7 - 45 Units/L [facility] AST 68(H) 10 - 45 Units/L [facility] Blood 11/16/2024 9:38 PM CDT 11/16/2024 10:37 PM CDT Lee Elena MD LAB BLOOD ORDERABLES Krystyna meyers Result [facility] [place] [address] * (ABNORMAL) Basic metabolic panel (11/16/2024 9:38 PM CDT) [facility] Sodium 141 135 - 145 mmol/L Potassium, pl 4.2 3.3 - 4.9 mmol/L [facility] Chloride 103 97 - 110 mmol/L [facility] CO2 29 22 - 32 mmol/L [facility] Anion gap 9 2 - 15 mmol/L [facility] BUN 9 6 - 25 mg/dL [facility] Creatinine 0.48(L) 0.60 - 1.10 mg/dL [facility] Glucose 90 70 - 199 mg/dL [facility] Comment: Interpretive Data Fasting [...] Calcium 8.8 8.5 - 10.3 mg/dL [facility] Blood 11/16/2024 9:38 PM CDT 11/16/2024 10:37 PM CDT us Lee Elena MD LAB BLOOD ORDERABLES Krystyna l Result [facility] [place] [address] * Blood culture Blood (11/16/2024 9:28 PM CDT) Report Final Report: No growth Blood 11/16/2024 9:28 PM CDT 11/16/2024 10:38 PM CDT Narrative [facility] - 11/21/2024 7:00 AM CDT Collection->Peripheral [...] performance characteristics have been verified by the [facility] Microbiology Laboratory. For questions about this culture, contact the Microbiology Laboratory at [phone]. Interpretive data was last revised on 24. Lee Elena MD LAB MICROBIOLOGY - GENERA L ORDERABLES Final Result Performing Organization Address [facility] Co de Phone Number [facility] [place] [address] * POCT glucose (11/16/2024 8:10 PM CDT) Glucose, POC 124 70 - 199 mg/dL Blood 11/16/2024 8:10 PM CDT 11/16/2024 8:10 PM CDT Lee Elena MD LAB POCT ORDERABLES - DEV ICE Final Result Performing Organization Address [facility] de Phone Number [facility] [place] [address] * POCT glucose (11/16/2024 6:32 PM CDT) Glucose, POC 104 70 - 199 mg/dL Blood 11/16/2024 6:3 2 PM CDT 11/16/2024 6:32 PM CDT Lee Elena MD LAB POCT ORDERABLES - DEV ICE Final Result Performing Organization Address [facility] [place] [address] * Radiology Event (11/16/2024 5:53 PM CDT) [...] [facility] It was reported that when [...] [facility] It was reported that when [...] mapping at the mid: normal less than 9855-6101 ms. T2 mapping at the mid: normal [...] mapping at the mid: normal less than 6969-6194 ms. T2 mapping at the mid: normal [...] and hematocrit (11/16/2024 11:59 AM CDT) Pathologist [facility] Hgb 10.2(L) 11.9 - 15.5 g/dL Comment:Hemoglobin delta due to apparent blood transfusion. Hct 30.3(L) 35.6 - 45.5 % [facility] Blood 11/16/2024 11:5 9 AM CDT 11/16/2024 12:47 PM CDT Oracio Cody MD LAB BLOOD ORDERABLES Final Result [facility] [place] [address] * eGFR (11/16/2024 11:58 AM CDT) [facility] eGFR >90 >=60 mL/min/1. 73 [...] ORDERABLES Krystyna l Result Performing Organization Address [facility] Co de Phone Number [facility] [place] [address] * Calcium, ionized (11/16/2024 11:58 AM CDT) Calcium, Ionized 4.68 4.50 - 5.10 mg/dL Blood 11/16/2024 11:5 8 AM CDT 11/16/2024 12:39 PM CDT Lee Elena MD LAB BLOOD ORDERABLES Krystyna l Result Performing Organization Address [facility] Co de Phone Number [facility] [place] [address] * Phosphorus (11/16/2024 11:58 AM CDT) Phosphorus, pl 4.3 2.3 - 4.5 mg/dL Blood 11/16/2024 11:5 8 AM CDT 11/16/2024 12:47 PM CDT Lee Eelna MD LAB BLOOD ORDERABLES Krystyna l Result Performing Organization Address City/[facility] Co de Phone Number [facility] [place] [address] * Magnesium (11/16/2024 11:58 AM CDT) [facility] Magnesium 1.6 1.4 - 2.5 mg/dL Blood 11/16/2024 11:5 8 AM CDT 11/16/2024 12:47 PM CDT Lee Elena MD LAB BLOOD ORDERABLES Krystyna l Result Performing Organization Address [facility] Co de Phone Number [facility] [place] [address] * (ABNORMAL) Basic metabolic panel (11/16/2024 11:58 AM CDT) [facility] Sodium 140 135 - 145 mmol/L Potassium, pl 4.2 3.3 - 4.9 mmol/L [facility] Chloride 104 97 - 110 mmol/L [facility] CO2 30 22 - 32 mmol/L [facility] Anion gap 6 2 - 15 mmol/L [facility] BUN 9 6 - 25 mg/dL [facility] Creatinine 0.44(L) 0.60 - 1.10 mg/dL [facility] Glucose 101 70 - 199 mg/dL [facility] Comment: Interpretive Data Fasting [...] 2022. Calcium 8.6 8.5 - 10.3 mg/dL [facility] Blood 11/16/2024 11:5 8 AM CDT 11/16/2024 12:47 PM CDT Lee Elena MD LAB BLOOD ORDERABLES Krystyna l Result Performing Organization Address [facility] de Phone Number [facility] [place] [address] * (ABNORMAL) POCT glucose (11/16/2024 11:43 AM CDT) [facility] Glucose, POC 250(H) 70 - 199 mg/dL Comment:Glu2: RN/MD Notified Glucose comment 1 Glu2: RN/MD Notified [facility] Blood 11/16/2024 11:4 3 AM CDT 11/16/2024 11:43 AM CDT Lee Elena MD LAB POCT ORDERABLES - DEV ICE Final Result Performing Organization Address [facility] de Phone Number [facility] [place] [address] * POCT glucose (11/16/2024 7:55 AM CDT) [facility] Glucose, POC 98 70 - 199 mg/dL Blood 11/16/2024 7:55 AM CDT 11/16/2024 7:55 AM CDT Lee Elena MD LAB POCT ORDERABLES - DEV ICE Final Result Performing Organization Address [facility] de Phone Number [facility] [place] [address] * ECG 12 lead (11/16/2024 7:09 AM CDT) [facility] Ventricular Rate EKG/Min 84 BPM [facility] Atrial Rate 84 BPM [facility] SD-Interval (MSEC) 126 ms [facility] QRS-Interval (MSEC) 66 ms [facility] QT-Interval (MSEC) 410 ms [facility] QTc 484 ms [facility] P [place] 19 degrees [facility] R [place] 41 degrees [facility] T Virgie 92 degrees [facility] Diagnosis Normal sinus rhythm Nonspecific T wave abnormality Prolonged QT Abnormal ECG Confirmed by Gustabo Mcdaniels MD ([id number]) on 11/16/2024 8:39:02 AM [facility] 11/16/2024 7:09 AM CDT 11/16/2024 8:39 AM CDT Lee Elena MD ECG ORDERABLES Final Res ult Performing Organization Address [facility] Co de Phone Number [facility] * Transfuse RBC (11/16/2024 6:22 AM CDT) Blood Lee Elena MD BLOOD TRANSFUSION ORDERAB LES Final Result Performing Organization Address [facility] Co de Phone Number [facility] [place] [address] * POCT glucose (11/16/2024 4:21 AM CDT) Glucose, POC 119 70 - 199 mg/dL Blood 11/16/2024 4:21 AM CDT 11/16/2024 4:21 AM CDT Lee Elena MD LAB POCT ORDERABLES - DEV ICE Final Result Performing Organization Address [facility] de Phone Number [facility] [place] [address] * Type and screen (11/16/2024 1:45 AM CDT) Zach, indirect Negative ABO Rh A Positive [facility] Blood 11/16/2024 1:45 AM CDT 11/16/2024 2:04 AM CDT Narrative [facility] - 11/16/2024 2:58 AM CDT Has the patient had Daratumumab or Isatuximab in the past 6 months?->Unknown Lee Elena MD LAB BLOOD BANK TEST ORDER ALINE Final Result Performing Organization Address [facility] Co de Phone Number [facility] [place] [address] * POCT glucose (11/16/2024 12:24 AM CDT) [facility] Glucose, POC 107 70 - 199 mg/dL Blood 11/16/2024 12:2 4 AM CDT 11/16/2024 12:24 AM CDT Lee Elena MD LAB POCT ORDERABLES - DEV ICE Final Result Performing Organization Address [facility] [place] [address] * Prepare RBC: 1 Units (11/15/2024 10:35 PM CDT) [facility] Product code [id number] Unit Number [id number] [facility] Product Blood Type APOS [facility] Dispense Status PRESUMED TRANSFUSED [facility] Blood 11/15/2024 10:3 5 PM CDT 11/15/2024 10:34 PM CDT Narrative [facility] - 11/16/2024 4:01 PM CDT Are special requirements needed? (All products are leukoreduced and CMV- safe)- >No Date required:-[id number] LRRBC # of Qeahj-[id number]-Sefiy Reasons:-Hgb <7 g/dL} Lee Elena MD BLOOD BANK PRODUCT ORDERA BLES Final Result Performing Organization Address [facility] Co de Phone Number [facility] [place] [address] * eGFR (11/15/2024 8:16 PM CDT) [facility] eGFR >90 >=60 mL/min/1. 73 [...] MD LAB BLOOD ORDERABLES Krystyna meyers Result [facility] [place] [address] * (ABNORMAL) Differential, auto (11/15/2024 8:16 PM CDT) [facility] Neutrophil abs 2.95 1.50 - 6.50 K/cumm Imm gran abs 0.11(H) 0.00 - 0.10 K/cumm [facility] Lymphocyte abs 2.04 0.80 - 3.30 K/cumm [facility] Monocyte abs 0.49 0.20 - 0.80 K/cumm [facility] Eosinophil abs 0.10 0.00 - 0.50 K/cumm [facility] Basophil abs 0.02 0.00 - 0.10 K/cumm [facility] Neutrophil pct 51.6 % [facility] Comment: Interpretive Data Percent cell count reference ranges are not reported, since discordance with absolute values may lead to misinterpretation of CBC data. Current Interpretive Data was last revised on 2017. Imm gran pct 1.9 % [facility] Comment: Interpretive Data Percent cell count reference ranges are not reported, since discordance with absolute values may lead to misinterpretation of CBC data. Current Interpretive Data was last revised on 2017. Lymphocyte pct 35.7 % [facility] Comment: Interpretive Data Percent cell count reference ranges are not reported, since discordance with absolute values may lead to misinterpretation of CBC data. Current Interpretive Data was last revised on 2017. Monocyte pct 8.6 % [facility] Comment: Interpretive Data Percent cell count reference ranges are not reported, since discordance with absolute values may lead to misinterpretation of CBC data. Current Interpretive Data was last revised on 2017. Eosinophil pct 1.8 % [facility] Comment: Interpretive Data Percent cell count reference ranges are not reported, since discordance with absolute values may lead to misinterpretation of CBC data. Current Interpretive Data was last revised on 2017. Basophil pct 0.4 % [facility] Comment: Interpretive Data Percent cell count reference ranges are not reported, since discordance with absolute values may lead to misinterpretation of CBC data. Current Interpretive Data was last revised on 2017. Blood 11/15/2024 8:16 PM CDT 11/15/2024 9:37 PM CDT us Lee Elena MD LAB BLOOD ORDERABLES Krystyna meyers Result [facility] Department [place] [address] * (ABNORMAL) CBC with auto differential (11/15/2024 8:16 PM CDT) WBC 5.71 3.80 - 9.90 K/cumm Hgb 6.9(L) 11.9 - 15.5 g/dL [facility] Hct 20.7(L) 35.6 - 45.5 % [facility] Plt 592(H) 150 - 400 K/cumm [facility] MPV 11.0 9.1 - 12.3 fL [facility] RBC 2.05(L) 3.90 - 5.20 M/cumm [facility] MCV 101.0(H) 81.3 - 96.4 fL [facility] MCH 33.7(H) 27.1 - 33.3 pg [facility] MCHC 33.3 32.3 - 35.7 g/dL [facility] RDW CV 21.6(H) 11.1 - 14.9 % [facility] RDW SD 77.4(H) 35.7 - 48.1 fL [facility] NRBC abs 0.00 0.00 - 0.01 K/cumm [facility] Blood 11/15/2024 8:16 PM CDT 11/15/2024 9:37 PM CDT Lee Elena MD LAB BLOOD ORDERABLES Krystyna meyers Result [facility] Department [place] [address] * Blood culture Blood (11/15/2024 8:16 PM CDT) Report Final Report: No growth Blood 11/15/2024 8:16 PM CDT 11/15/2024 9:44 PM CDT Narrative [facility] - 11/20/2024 7:00 AM CDT Collection->Peripheral 1. [...] performance characteristics have been verified by the [facility] Microbiology Laboratory. For questions about this culture, contact the Microbiology Laboratory at [phone]. Interpretive data was last revised on 24. Lee Elena MD LAB MICROBIOLOGY - GENERA L ORDERABLES Final Result Performing Organization Address [facility] de Phone Number [facility] [place] [address] * Protime-INR (11/15/2024 8:16 PM CDT) PT 10.7 9.7 - 13.0 sec INR 0.99 0.90 - 1.20 [facility] Comment: Interpretive data Oral [...] ORDERABLES Krystyna l Result Performing Organization Address [facility] de Phone Number [facility] [place] [address] * Phosphorus (11/15/2024 8:16 PM CDT) Phosphorus, pl 4.0 2.3 - 4.5 mg/dL Blood 11/15/2024 8:16 PM CDT 11/15/2024 9:36 PM CDT us Lee Elena MD LAB BLOOD ORDERABLES Krystyna l Result [facility] [place] [address] * Magnesium (11/15/2024 8:16 PM CDT) [facility] Magnesium 1.6 1.4 - 2.5 mg/dL Blood 11/15/2024 8:16 PM CDT 11/15/2024 9:36 PM CDT Lee Elena MD LAB BLOOD ORDERABLES Krystyna l Result Performing Organization Address [facility] Co de Phone Number [facility] [place] [address] * (ABNORMAL) Hepatic function panel (11/15/2024 8:16 PM CDT) [facility] Bilirubin, total 0.5 0.1 - 1.2 mg/dL Bilirubin, direct 0.4(H) 0.1 - 0.3 mg/dL [facility] Protein, pl 4.8(L) 6.5 - 8.5 g/dL [facility] Albumin 2.1(L) 3.5 - 5.0 g/dL [facility] Alk phos 171(H) 40 - 130 Units/L [facility] ALT 11 7 - 45 Units/L [facility] AST 39 10 - 45 Units/L [facility] Blood 11/15/2024 8:16 PM CDT 11/15/2024 9:36 PM CDT Lee Elena MD LAB BLOOD ORDERABLES Krystyna l Result Performing Organization Address City/[facility]/ZIP Co de Phone Number [facility] [place] [address] * (ABNORMAL) Basic metabolic panel (11/15/2024 8:16 PM CDT) Sodium 141 135 - 145 mmol/L Potassium, pl 4.0 3.3 - 4.9 mmol/L [facility] Chloride 105 97 - 110 mmol/L [facility] CO2 29 22 - 32 mmol/L [facility] Anion gap 7 2 - 15 mmol/L [facility] BUN 7 6 - 25 mg/dL [facility] Creatinine 0.46(L) 0.60 - 1.10 mg/dL [facility] Glucose 95 70 - 199 mg/dL [facility] Comment: Interpretive Data Fasting [...] 2022. Calcium 7.7(L) 8.5 - 10.3 mg/dL [facility] Blood 11/15/2024 8:16 PM CDT 11/15/2024 9:36 PM CDT Lee Elena MD LAB BLOOD ORDERABLES Krystyna l Result Performing Organization Address City/[facility]/ZIP Co de Phone Number [facility] [place] [address] * POCT glucose (11/15/2024 7:40 PM CDT) Glucose, POC 117 70 - 199 mg/dL Blood 11/15/2024 7:40 PM CDT 11/15/2024 7:40 PM CDT Lee Elena MD LAB POCT ORDERABLES - DEV ICE Final Result Performing Organization Address [facility]/ZIP Co de Phone Number [facility] [place] [address] * POCT glucose (11/15/2024 5:11 PM CDT) Glucose, POC 100 70 - 199 mg/dL Blood 11/15/2024 5:11 PM CDT 11/15/2024 5:11 PM CDT Lee Elena MD LAB POCT ORDERABLES - [place] [address] * POCT glucose (11/15/2024 11:19 AM CDT) Glucose, POC 127 70 - 199 mg/dL Blood 11/15/2024 11:1 9 AM CDT 11/15/2024 11:19 AM CDT Lee Elena MD LAB POCT ORDERABLES - [place] [address] * POCT glucose (11/15/2024 8:44 AM CDT) Glucose, POC 106 70 - 199 mg/dL Blood 11/15/2024 8:44 AM CDT 11/15/2024 8:44 AM CDT Lee Elena MD LAB POCT ORDERABLES - DEV ICE [place] [address] * POCT glucose (11/15/2024 4:01 AM CDT) Glucose, POC 102 70 - 199 mg/dL Blood 11/15/2024 4:01 AM CDT 11/15/2024 4:01 AM CDT Lee Elena MD LAB POCT ORDERABLES - DEV ICE Final Result Performing Organization Address City/[facility] Co de Phone Number [facility] [place] [address] * POCT glucose (11/15/2024 12:15 AM CDT) Glucose, POC 110 70 - 199 mg/dL Blood 11/15/2024 12:1 5 AM CDT 11/15/2024 12:15 AM CDT Lee Elena MD LAB POCT ORDERABLES - DEV ICE Final Result Performing Organization Address [facility] de Phone Number [facility] [place] [address] * ECG 12 lead (11/14/2024 10:27 PM CDT) Ventricular Rate EKG/Min 103 BPM [facility] Atrial Rate 103 BPM [facility] SD-Interval (MSEC) 124 ms [facility] QRS-Interval (MSEC) 70 ms [facility] QT-Interval (MSEC) 380 ms [facility] QTc 497 ms [facility] P Virgie 23 degrees [facility] R Virgie 21 degrees [facility] T Virgie 113 degrees [facility] Diagnosis Sinus tachycardia Nonspecific T wave abnormality Abnormal ECG Confirmed by Gustabo Mcdaniels MD ([id number]) on 11/15/2024 4:29:22 PM [facility] 11/14/2024 10:2 7 PM CDT 11/15/2024 4:29 PM CDT Lee Elena MD ECG ORDERABLES Final Res ult Performing Organization Address City/[facility] Co de Phone Number [facility] * N. gonorrhoeae/C. trachomatis Amplification Urine (11/14/2024 10:01 PM CDT) C. trachomatis Not Detected Not Detected [facility] N. gonorrhoeae Not Detected Not Detected [facility] Comment: Interpretive Data This assay detects Chlamydia trachomatis and Neisseria gonorrhoeae by nucleic acid amplification testing (NAAT). This assay has been cleared by the [place] Food and Drug administration. The performance characteristics of this test have been verified by the [facility] Molecular Infectious Disease laboratory. The performance characteristics of this test have not been evaluated in individuals less than 14 years of age. Current Interpretive Data last revised 2023. Urine (None) 11/14/2024 10:0 1 PM CDT 11/15/2024 3:36 AM CDT us Lee Elena MD LAB MICROBIOLOGY - GENERA L ORDERABLES Final Result [facility] [place] [address] [facility] * eGFR (11/14/2024 9:16 PM CDT) eGFR [...] Lee Elena MD LAB BLOOD ORDERABLES Krystyna mria Result [facility] [place] [address] * (ABNORMAL) Differential, auto (11/14/2024 9:16 PM CDT) [facility] Neutrophil abs 4.79 1.50 - 6.50 K/cumm Imm gran abs 0.18(H) 0.00 - 0.10 K/cumm [facility] Lymphocyte abs 2.09 0.80 - 3.30 K/cumm [facility] Monocyte abs 0.68 0.20 - 0.80 K/cumm [facility] Eosinophil abs 0.10 0.00 - 0.50 K/cumm [facility] Basophil abs 0.05 0.00 - 0.10 K/cumm [facility] Neutrophil pct 60.7 % [facility] Comment: Interpretive Data Percent cell count reference ranges are not reported, since discordance with absolute values may lead to misinterpretation of CBC data. Current Interpretive Data was last revised on 2017. Imm gran pct 2.3 % [facility] Comment: Interpretive Data Percent cell count reference ranges are not reported, since discordance with absolute values may lead to misinterpretation of CBC data. Current Interpretive Data was last revised on 2017. Lymphocyte pct 26.5 % [facility] Comment: Interpretive Data Percent cell count reference ranges are not reported, since discordance with absolute values may lead to misinterpretation of CBC data. Current Interpretive Data was last revised on 2017. Monocyte pct 8.6 % [facility] Comment: Interpretive Data Percent cell count reference ranges are not reported, since discordance with absolute values may lead to misinterpretation of CBC data. Current Interpretive Data was last revised on 2017. Eosinophil pct 1.3 % [facility] Comment: Interpretive Data Percent cell count reference ranges are not reported, since discordance with absolute values may lead to misinterpretation of CBC data. Current Interpretive Data was last revised on 2017. Basophil pct 0.6 % [facility] Comment: Interpretive Data Percent cell count reference ranges are not reported, since discordance with absolute values may lead to misinterpretation of CBC data. Current Interpretive Data was last revised on 2017. Blood 11/14/2024 9:16 PM CDT 11/14/2024 10:29 PM CDT us Lee Elena MD LAB BLOOD ORDERABLES Krystyna meyers Result [facility] Department [place] [address] * (ABNORMAL) CBC with auto differential (11/14/2024 9:16 PM CDT) WBC 7.89 3.80 - 9.90 K/cumm Hgb 7.4(L) 11.9 - 15.5 g/dL [facility] Hct 22.1(L) 35.6 - 45.5 % [facility] Plt 501(H) 150 - 400 K/cumm [facility] MPV 11.5 9.1 - 12.3 fL [facility] RBC 2.25(L) 3.90 - 5.20 M/cumm [facility] MCV 98.2(H) 81.3 - 96.4 fL [facility] MCH 32.9 27.1 - 33.3 pg [facility] MCHC 33.5 32.3 - 35.7 g/dL [facility] RDW CV 21.2(H) 11.1 - 14.9 % [facility] RDW SD 74.3(H) 35.7 - 48.1 fL [facility] NRBC abs 0.00 0.00 - 0.01 K/cumm [facility] Blood 11/14/2024 9:16 PM CDT 11/14/2024 10:29 PM CDT Lee Elena MD LAB BLOOD ORDERABLES Krystyna l Result Performing Organization Address City/[facility]/ZIP Co de Phone Number [facility] Department [place] [address] * Blood culture Blood (11/14/2024 9:16 PM [...] performance characteristics have been verified by the [facility] Microbiology Laboratory. For questions about this culture, contact the Microbiology Laboratory at [phone]. Interpretive data was last revised on 24. Lee Elena MD LAB MICROBIOLOGY - GENERA L ORDERABLES Final Result [facility] [place] [address] * (ABNORMAL) Blood culture Blood (11/14/2024 9:16 PM CDT) Direct Specimen Exam Stain: Gram Positive Cocci in clusters Time to culture positivity (anaerobic media): 58.1 hours Notification of: Gram Positive Cocci in clusters called to and read back by: Ash Valencia M.D. [id number] on 11/17/2024 10:04:19 by: Nani Bueno MLS Report Final Report: Staphylococcus aureus For susceptibility results, refer to accession number [id number] on the blood culture from 11/14/2024 (.) [facility] Organism STAPHYLOCOCCUS AUREUS [facility] Blood 11/14/2024 9:16 PM CDT 11/14/2024 10:47 PM CDT Narrative [facility] - 11/20/2024 8:57 AM CDT Collection->Peripheral [...] performance characteristics have been verified by the [facility] Microbiology Laboratory. For questions about this culture, contact the Microbiology Laboratory at [phone]. Interpretive data was last revised on 24. us Lee Elena MD LAB MICROBIOLOGY - GENERA L ORDERABLES Final Result [facility] [place] [address] * Protime-INR (11/14/2024 9:16 PM CDT) PT 12.1 9.7 - 13.0 sec INR 1.12 0.90 - 1.20 [facility] Comment: Interpretive data Oral [...] ORDERABLES Krystyna l Result Performing Organization Address [facility] Co de Phone Number [facility] [place] [address] * Uric acid (11/14/2024 9:16 PM CDT) [facility] Uric acid 3.4 2.5 - 7.0 mg/dL Blood 11/14/2024 9:16 PM CDT 11/14/2024 10:34 PM CDT Lee Elena MD LAB BLOOD ORDERABLES Krystyna l Result Performing Organization Address [facility] de Phone Number [facility] [place] [address] * (ABNORMAL) Phosphorus (11/14/2024 9:16 PM CDT) Pathologist [facility] Phosphorus, pl 5.1(H) 2.3 - 4.5 mg/dL Blood 11/14/2024 9:16 PM CDT 11/14/2024 10:29 PM CDT Lee Elena MD LAB BLOOD ORDERABLES Krystyna l Result Performing Organization Address City/[facility] [place] [address] * Magnesium (11/14/2024 9:16 PM CDT) [facility] Magnesium 1.9 1.4 - 2.5 mg/dL Blood 11/14/2024 9:16 PM CDT 11/14/2024 10:29 PM CDT Lee Elean MD LAB BLOOD ORDERABLES Krystyna l Result Performing Organization Address [facility] [place] [address] * Folate (11/14/2024 9:16 PM CDT) [facility] Folic acid 16.4 >=5.0 ng/mL Blood 11/14/2024 9:16 PM CDT 11/14/2024 10:29 PM CDT Lee Elena MD LAB BLOOD ORDERABLES Krystyna l Result Performing Organization Address [facility]/[place] [address] * (ABNORMAL) Vitamin B12 (11/14/2024 9:16 PM CDT) [facility] Vitamin B12 1,820(H) 230 - 1,250 pg/mL Blood 11/14/2024 9:16 PM CDT 11/14/2024 10:29 PM CDT Lee Elena MD LAB BLOOD ORDERABLES Krystyna l Result [facility] [place] [address] * (ABNORMAL) Hepatic function panel (11/14/2024 9:16 PM CDT) [facility] Bilirubin, total 0.6 0.1 - 1.2 mg/dL Bilirubin, direct 0.5(H) 0.1 - 0.3 mg/dL [facility] Protein, pl 4.7(L) 6.5 - 8.5 g/dL [facility] Albumin 2.0(L) 3.5 - 5.0 g/dL [facility] Alk phos 166(H) 40 - 130 Units/L [facility] ALT 10 7 - 45 Units/L [facility] AST 41 10 - 45 Units/L [facility] Blood 11/14/2024 9:16 PM CDT 11/14/2024 10:29 PM CDT us Lee Elena MD LAB BLOOD ORDERABLES Krystyna l Result [facility] [place] [address] * (ABNORMAL) Basic metabolic panel (11/14/2024 9:16 PM CDT) [facility] Sodium 139 135 - 145 mmol/L Potassium, pl 3.7 3.3 - 4.9 mmol/L [facility] Chloride 100 97 - 110 mmol/L [facility] CO2 27 22 - 32 mmol/L [facility] Anion gap 12 2 - 15 mmol/L [facility] BUN 5(L) 6 - 25 mg/dL [facility] Creatinine 0.48(L) 0.60 - 1.10 mg/dL [facility] Glucose 84 70 - 199 mg/dL [facility] Comment: Interpretive Data Fasting [...] 2022. Calcium 7.7(L) 8.5 - 10.3 mg/dL [facility] Blood 11/14/2024 9:16 PM CDT 11/14/2024 10:29 PM CDT Lee Elena MD LAB BLOOD ORDERABLES Krystyna l Result Performing Organization Address City/[facility]/ZIP Co de Phone Number [facility] [place] [address] * POCT glucose (11/14/2024 7:37 PM CDT) Pathologist [facility] Glucose, POC 119 70 - 199 mg/dL Blood 11/14/2024 7:37 PM CDT 11/14/2024 7:37 PM CDT Lee Elena MD LAB POCT ORDERABLES - DEV ICE Final Result Performing Organization Address [facility] Co de Phone Number [facility] [place] [address] * POCT glucose (11/14/2024 4:07 PM CDT) Pathologist [facility] Glucose, POC 89 70 - 199 mg/dL Blood 11/14/2024 4:07 PM CDT 11/14/2024 4:07 PM CDT Lee Elena MD LAB POCT ORDERABLES - DEV ICE Final Result Performing Organization Address City/[facility] Co de Phone Number [facility] [place] [address] * TRANSESOPHAGEAL ECHO (MAXIMINO) W DOPPLER/CF WO CONTRAST (11/14/2024 2:19 PM CDT) Pathologist [facility] LV EF 45 % CONS SCIMAGE Anatomical Region Laterality Modality Echocardiography 11/14/2024 1:49 PM CDT Narrative 11/15/2024 2:05 PM CDT [facility] Cardiac [place] [address] Transesophageal Echocardiographic Report Patient Name: HAYLEY LEÓN L : 1990 (34y 9m) Gender: F Study Date: 11/14/2024 01:49:02 PM Ht(Inch): Wt(Lb): BSA: Ash Pit Worker: Location: [id number] Order Provider: JULISSA MCGOWAN BMI: Ref Provider: [...] Procedure Note Aubrey Horvath MD - 11/15/2024 [facility] [place] [address] Transesophageal Echocardiographic Report Patient Name: HAYLEY LEÓN L : 1990 (34y 9m) Gender: F Study Date: 11/14/2024 01:49:02 PM Ht(Inch): Wt(Lb): BSA: Ash Pit Worker: Location: [id number] Order Provider: JULISSA MCGOWAN BMI: Ref Provider: [...] CV ECHO PROCEDURES Fin al Result * SD AN ELECTIVE ENDOTRACHEAL AIRWAY, SD AN PROCEDURE PLACEHOLDER (11/14/2024 1:56 PM CDT) [...] DEV ICE Final Result Performing Organization Address [facility] Co de Phone Number [facility] [place] [address] * POCT glucose (11/14/2024 10:49 AM CDT) Glucose, POC 88 70 - 199 mg/dL Blood 11/14/2024 10:4 9 AM CDT 11/14/2024 10:49 AM CDT Lee Elena MD LAB POCT ORDERABLES - DEV ICE Final Result Performing Organization Address City/[facility] Co de Phone Number [facility] [place] [address] * POCT glucose (11/14/2024 7:36 AM CDT) Glucose, POC 94 70 - 199 mg/dL Blood 11/14/2024 7:36 AM CDT 11/14/2024 7:36 AM CDT Lee Elena MD LAB POCT ORDERABLES - DEV ICE Final Result Performing Organization Address City/[facility] Co de Phone Number [facility] [place] [address] * POCT glucose (11/14/2024 4:28 AM CDT) Glucose, POC 85 70 - 199 mg/dL Blood 11/14/2024 4:28 AM CDT 11/14/2024 4:28 AM CDT Lee Elena MD LAB POCT ORDERABLES - DEV ICE Final Result Performing Organization Address [facility] de Phone Number [facility] [place] [address] * (ABNORMAL) Blood culture Blood (11/14/2024 12:27 AM CDT) Pathologist [facility] Direct Specimen Exam Stain: Gram Positive Cocci in clusters Time to culture positivity (anaerobic media): 36.1 hours Report Final Report: Staphylococcus aureus For susceptibility results, refer to accession number [id number] on the blood culture from 11/14/2024 (.) [facility] Organism STAPHYLOCOCCUS AUREUS [facility] Blood 11/14/2024 12:2 7 AM CDT 11/14/2024 1:42 AM CDT Narrative [facility] - 11/19/2024 7:49 AM CDT From a [...] performance characteristics have been verified by the [facility] Microbiology Laboratory. For questions about this culture, contact the Microbiology Laboratory at [phone]. Interpretive data was last revised on 24. us Lee Elena MD LAB MICROBIOLOGY - GENERA L ORDERABLES Final Result [facility] Department [place] [address] * (ABNORMAL) Blood culture Blood (11/14/2024 12:16 AM CDT) Direct Specimen Exam Stain: Gram Positive Cocci in clusters Time to culture positivity (anaerobic media): 18.6 hours Time to culture positivity (aerobic media): 23.8 hours Direct Specimen Exam Molecular Analysis: Methicillin-suscep tible Staphylococcus aureus (MSSA) detected by the [facility] BCID-GP panel. This test does not exclude the possibility of a mixed bacterial infection. [facility] Report Final Report: Staphylococcus aureus Methicillin susceptible (MSSA) by penicillin binding protein 2a (PBP2a) testing. (.) [facility] Organism STAPHYLOCOCCUS AUREUS [facility] Blood 11/14/2024 12:1 6 AM CDT 11/14/2024 1:42 AM CDT Narrative [facility] - 11/17/2024 1:38 PM [...] performance characteristics have been verified by the [facility] Microbiology Laboratory. For questions about this culture, contact the Microbiology Laboratory at [phone]. Interpretive data was last revised on 24. [...] L ORDERABLES Final Result Performing Organization Address City/[facility]/ZIP Co de Phone Number [facility] [place] [address] * POCT glucose (11/13/2024 11:28 PM CDT) [facility] Signature Glucose, POC 108 70 - 199 mg/dL Blood 11/13/2024 11:2 8 PM CDT 11/13/2024 11:28 PM CDT Lee Elena MD LAB POCT ORDERABLES - DEV ICE Final Result Performing Organization Address [facility] Co de Phone Number [facility] Department [place] [address] * eGFR (11/13/2024 9:44 PM CDT) Pathologist [facility] eGFR >90 >=60 mL/min/1. 73 m2 Comment: [...] MD LAB BLOOD ORDERABLES Krystyna meyers Result [facility] [place] [address] * (ABNORMAL) Differential, auto (11/13/2024 9:44 PM CDT) Pathologist [facility] Neutrophil abs 6.19 1.50 - 6.50 K/cumm Imm gran abs 0.35(H) 0.00 - 0.10 K/cumm [facility] Lymphocyte abs 2.02 0.80 - 3.30 K/cumm [facility] Monocyte abs 0.92(H) 0.20 - 0.80 K/cumm [facility] Eosinophil abs 0.08 0.00 - 0.50 K/cumm [facility] Basophil abs 0.05 0.00 - 0.10 K/cumm [facility] Neutrophil pct 64.5 % [facility] Comment: Interpretive Data Percent cell count reference ranges are not reported, since discordance with absolute values may lead to misinterpretation of CBC data. Current Interpretive Data was last revised on 2017. Imm gran pct 3.6 % [facility] Comment: Interpretive Data Percent cell count reference ranges are not reported, since discordance with absolute values may lead to misinterpretation of CBC data. Current Interpretive Data was last revised on 2017. Lymphocyte pct 21.0 % [facility] Comment: Interpretive Data Percent cell count reference ranges are not reported, since discordance with absolute values may lead to misinterpretation of CBC data. Current Interpretive Data was last revised on 2017. Monocyte pct 9.6 % [facility] Comment: Interpretive Data Percent cell count reference ranges are not reported, since discordance with absolute values may lead to misinterpretation of CBC data. Current Interpretive Data was last revised on 2017. Eosinophil pct 0.8 % [facility] Comment: Interpretive Data Percent cell count reference ranges are not reported, since discordance with absolute values may lead to misinterpretation of CBC data. Current Interpretive Data was last revised on 2017. Basophil pct 0.5 % [facility] Comment: Interpretive Data Percent cell count reference ranges are not reported, since discordance with absolute values may lead to misinterpretation of CBC data. Current Interpretive Data was last revised on 2017. Blood 11/13/2024 9:44 PM CDT 11/13/2024 10:32 PM CDT us Lee Elena MD LAB BLOOD ORDERABLES Krystyna l Result [facility] [place] [address] * (ABNORMAL) CBC with auto differential (11/13/2024 9:44 PM CDT) WBC 9.61 3.80 - 9.90 K/cumm Hgb 8.2(L) 11.9 - 15.5 g/dL [facility] Hct 23.7(L) 35.6 - 45.5 % [facility] Plt 363 150 - 400 K/cumm [facility] MPV 12.3 9.1 - 12.3 fL [facility] RBC 2.50(L) 3.90 - 5.20 M/cumm [facility] MCV 94.8 81.3 - 96.4 fL [facility] MCH 32.8 27.1 - 33.3 pg [facility] MCHC 34.6 32.3 - 35.7 g/dL [facility] RDW CV 19.8(H) 11.1 - 14.9 % [facility] RDW SD 65.3(H) 35.7 - 48.1 fL [facility] NRBC abs 0.00 0.00 - 0.01 K/cumm [facility] Blood 11/13/2024 9:44 PM CDT 11/13/2024 10:32 PM CDT Lee Elena MD LAB BLOOD ORDERABLES Krystyna meyers Result [facility] Department [place] [address] * (ABNORMAL) Protime-INR (11/13/2024 9:44 PM CDT) PT 13.9(H) 9.7 - 13.0 sec INR 1.28(H) 0.90 - 1.20 [facility] Comment: Interpretive data Oral [...] ORDERABLES Krystyna l Result Performing Organization Address [facility] Co de Phone Number [facility] [place] [address] * (ABNORMAL) Reticulocyte Count (11/13/2024 9:44 PM CDT) Retics, absolute 97(H) 20 - 87 K/cumm Retics 3.9(H) 0.4 - 2.9 % [facility] Reticulocyte Hgb 38.0 30.5 - 38.0 pg [facility] Blood 11/13/2024 9:44 PM CDT 11/13/2024 10:40 PM CDT Lee Elena MD LAB BLOOD ORDERABLES Krystyna l Result Performing Organization Address [facility] de Phone Number [facility] [place] [address] * Phosphorus (11/13/2024 9:44 PM CDT) Pathologist [facility] Phosphorus, pl 2.5 2.3 - 4.5 mg/dL Blood 11/13/2024 9:44 PM CDT 11/13/2024 10:33 PM CDT Lee Elena MD LAB BLOOD ORDERABLES Krystyna l Result Performing Organization Address [facility] [place] [address] * Magnesium (11/13/2024 9:44 PM CDT) Pathologist [facility] Magnesium 1.9 1.4 - 2.5 mg/dL Blood 11/13/2024 9:44 PM CDT 11/13/2024 10:33 PM CDT Lee Elena MD LAB BLOOD ORDERABLES Krystyna l Result Performing Organization Address [facility] Co de Phone Number [facility] [place] [address] * (ABNORMAL) Hepatic function panel (11/13/2024 9:44 PM CDT) [facility] Bilirubin, total 0.6 0.1 - 1.2 mg/dL Bilirubin, direct 0.4(H) 0.1 - 0.3 mg/dL [facility] Protein, pl 4.8(L) 6.5 - 8.5 g/dL [facility] Albumin 1.8(L) 3.5 - 5.0 g/dL [facility] Alk phos 173(H) 40 - 130 Units/L [facility] ALT 15 7 - 45 Units/L [facility] AST 49(H) 10 - 45 Units/L [facility] Blood 11/13/2024 9:44 PM CDT 11/13/2024 10:33 PM CDT us Lee Elena MD LAB BLOOD ORDERABLES Krystyna l Result Performing Organization Address [facility] de Phone Number [facility] [place] [address] * (ABNORMAL) Basic metabolic panel (11/13/2024 9:44 PM CDT) [facility] Sodium 134(L) 135 - 145 mmol/L Potassium, pl 4.5 3.3 - 4.9 mmol/L [facility] Chloride 99 97 - 110 mmol/L [facility] CO2 27 22 - 32 mmol/L [facility] Anion gap 8 2 - 15 mmol/L [facility] BUN 5(L) 6 - 25 mg/dL [facility] Creatinine 0.41(L) 0.60 - 1.10 mg/dL [facility] Glucose 99 70 - 199 mg/dL [facility] Comment: Interpretive Data Fasting [...] 2022. Calcium 7.7(L) 8.5 - 10.3 mg/dL [facility] Blood 11/13/2024 9:44 PM CDT 11/13/2024 10:33 PM CDT Lee Elena MD LAB BLOOD ORDERABLES Krystyna l Result Performing Organization Address City/[facility] Co de Phone Number [facility] [place] [address] * POCT glucose (11/13/2024 7:36 PM CDT) Glucose, POC 96 70 - 199 mg/dL Blood 11/13/2024 7:36 PM CDT 11/13/2024 7:36 PM CDT Lee Elena MD LAB POCT ORDERABLES - DEV ICE Final Result Performing Organization Address [facility] Co de Phone Number [facility] [place] [address] * POCT glucose (11/13/2024 5:07 PM CDT) Glucose, POC 94 70 - 199 mg/dL Blood 11/13/2024 5:07 PM CDT 11/13/2024 5:07 PM CDT Lee Elena MD LAB POCT ORDERABLES - DEV ICE Final Result Performing Organization Address [facility] Co de Phone Number [facility] [place] [address] * MRI Spine Thoracic and Lumbar W [...] DEV ICE Final Result Performing Organization Address [facility] Co de Phone Number [facility] [place] [address] * POCT glucose (11/13/2024 7:43 AM CDT) Glucose, POC 107 70 - 199 mg/dL Blood 11/13/2024 7:43 AM CDT 11/13/2024 7:43 AM CDT Lee Elena MD LAB POCT ORDERABLES - DEV ICE Final Result Performing Organization Address [facility] Co de Phone Number [facility] [place] [address] * POCT glucose (11/13/2024 4:20 AM CDT) Glucose, POC 98 70 - 199 mg/dL Blood 11/13/2024 4:20 AM CDT 11/13/2024 4:20 AM CDT Lee Elena MD LAB POCT ORDERABLES - DEV ICE Final Result Performing Organization Address [facility] Co de Phone Number [facility] [place] [address] * POCT glucose (11/13/2024 1:03 AM CDT) Glucose, POC 104 70 - 199 mg/dL Blood 11/13/2024 1:03 AM CDT 11/13/2024 1:03 AM CDT Lee Elena MD LAB POCT ORDERABLES - DEV ICE Final Result Performing Organization Address [facility]/ZIP Co de Phone Number [facility] [place] [address] * eGFR (11/12/2024 10:00 PM CDT) eGFR [...] ORDERABLES Krystyna l Result Performing Organization Address City/[facility]/ZIP Co de Phone Number [facility] [place] [address] * (ABNORMAL) Differential, auto (11/12/2024 10:00 PM CDT) Pathologist [facility] Neutrophil abs 7.33(H) 1.50 - 6.50 K/cumm Imm gran abs 0.41(H) 0.00 - 0.10 K/cumm [facility] Lymphocyte abs 1.98 0.80 - 3.30 K/cumm [facility] Monocyte abs 0.73 0.20 - 0.80 K/cumm [facility] Eosinophil abs 0.16 0.00 - 0.50 K/cumm [facility] Basophil abs 0.04 0.00 - 0.10 K/cumm [facility] Neutrophil pct 68.8 % [facility] Comment: Interpretive Data Percent cell count reference ranges are not reported, since discordance with absolute values may lead to misinterpretation of CBC data. Current Interpretive Data was last revised on 2017. Imm gran pct 3.8 % [facility] Comment: Interpretive Data Percent cell count reference ranges are not reported, since discordance with absolute values may lead to misinterpretation of CBC data. Current Interpretive Data was last revised on 2017. Lymphocyte pct 18.6 % [facility] Comment: Interpretive Data Percent cell count reference ranges are not reported, since discordance with absolute values may lead to misinterpretation of CBC data. Current Interpretive Data was last revised on 2017. Monocyte pct 6.9 % [facility] Comment: Interpretive Data Percent cell count reference ranges are not reported, since discordance with absolute values may lead to misinterpretation of CBC data. Current Interpretive Data was last revised on 2017. Eosinophil pct 1.5 % [facility] Comment: Interpretive Data Percent cell count reference ranges are not reported, since discordance with absolute values may lead to misinterpretation of CBC data. Current Interpretive Data was last revised on 2017. Basophil pct 0.4 % [facility] Comment: Interpretive Data Percent cell count reference ranges are not reported, since discordance with absolute values may lead to misinterpretation of CBC data. Current Interpretive Data was last revised on 2017. Blood 11/12/2024 10:0 0 PM CDT 11/13/2024 12:47 AM CDT Lee Elena MD LAB BLOOD ORDERABLES Krystyna l Result Performing Organization Address City/[facility] Co de Phone Number [facility] [place] [address] * (ABNORMAL) CBC with auto differential (11/12/2024 10:00 PM CDT) WBC 10.65(H) 3.80 - 9.90 K/cumm Hgb 9.4(L) 11.9 - 15.5 g/dL [facility] Hct 27.1(L) 35.6 - 45.5 % [facility] Plt 241 150 - 400 K/cumm [facility] MPV 12.4(H) 9.1 - 12.3 fL [facility] RBC 2.85(L) 3.90 - 5.20 M/cumm [facility] MCV 95.1 81.3 - 96.4 fL [facility] MCH 33.0 27.1 - 33.3 pg [facility] MCHC 34.7 32.3 - 35.7 g/dL [facility] RDW CV 19.0(H) 11.1 - 14.9 % [facility] RDW SD 65.0(H) 35.7 - 48.1 fL [facility] NRBC abs 0.00 0.00 - 0.01 K/cumm [facility] Blood 11/12/2024 10:0 0 PM CDT 11/13/2024 12:47 AM CDT us Lee Elena MD LAB BLOOD ORDERABLES Krystyna l Result Performing Organization Address City/[facility]/ZIP Co de Phone Number [facility] [place] [address] * (ABNORMAL) Blood culture Blood (11/12/2024 10:00 PM CDT) Direct Specimen Exam Stain: Gram Positive Cocci in clusters Time to culture positivity (aerobic media): 20.3 hours Time to culture positivity (anaerobic media): 3.3 days Report Final Report: Staphylococcus aureus For susceptibility results, refer to accession number [id number] on the blood culture from 11/09/2024 (.) [facility] Organism STAPHYLOCOCCUS AUREUS [facility] Blood 11/12/2024 10:0 0 PM CDT 11/13/2024 12:57 AM CDT Narrative [facility] - 11/19/2024 11:19 AM CDT Collection->Peripheral [...] performance characteristics have been verified by the [facility] Microbiology Laboratory. For questions about this culture, contact the Microbiology Laboratory at [phone]. Interpretive data was last revised on 24. us Lee Elena MD LAB MICROBIOLOGY - GENERA L ORDERABLES Final Result [facility] [place] [address] * Protime-INR (11/12/2024 10:00 PM CDT) PT 12.9 9.7 - 13.0 sec INR 1.19 0.90 - 1.20 [facility] Comment: Interpretive data Oral anticoagulant therapeutic [...] ORDERABLES Krystyna l Result Performing Organization Address City/State/[facility] Co de Phone Number [facility] [place] [address] * Phosphorus (11/12/2024 10:00 PM CDT) Phosphorus, pl 2.8 2.3 - 4.5 mg/dL Blood 11/12/2024 10:0 0 PM CDT 11/13/2024 12:47 AM CDT Lee Elena MD LAB BLOOD ORDERABLES Krystyna l Result Performing Organization Address City/[facility] Co de Phone Number [facility] [place] [address] * Magnesium (11/12/2024 10:00 PM CDT) Magnesium 1.6 1.4 - 2.5 mg/dL Blood 11/12/2024 10:0 0 PM CDT 11/13/2024 12:47 AM CDT Lee Elena MD LAB BLOOD ORDERABLES Krystyna l Result Performing Organization Address City/[facility] Co de Phone Number [facility] [place] [address] * (ABNORMAL) Hepatic function panel (11/12/2024 10:00 PM CDT) Bilirubin, total 0.9 0.1 - 1.2 mg/dL Bilirubin, direct 0.6(H) 0.1 - 0.3 mg/dL [facility] Protein, pl 5.0(L) 6.5 - 8.5 g/dL [facility] Albumin 1.9(L) 3.5 - 5.0 g/dL [facility] Alk phos 180(H) 40 - 130 Units/L [facility] ALT 23 7 - 45 Units/L [facility] AST 57(H) 10 - 45 Units/L [facility] Blood 11/12/2024 10:0 0 PM CDT 11/13/2024 12:47 AM CDT Lee Elena MD LAB BLOOD ORDERABLES Krystyna l Result [facility] [place] [address] * (ABNORMAL) Basic metabolic panel (11/12/2024 10:00 PM CDT) [facility] Sodium 135 135 - 145 mmol/L Potassium, pl 3.2(L) 3.3 - 4.9 mmol/L [facility] Chloride 98 97 - 110 mmol/L [facility] CO2 30 22 - 32 mmol/L [facility] Anion gap 7 2 - 15 mmol/L [facility] BUN 6 6 - 25 mg/dL [facility] Creatinine 0.43(L) 0.60 - 1.10 mg/dL [facility] Glucose 84 70 - 199 mg/dL [facility] Comment: Interpretive Data Fasting [...] 2022. Calcium 8.1(L) 8.5 - 10.3 mg/dL [facility] Blood 11/12/2024 10:0 0 PM CDT 11/13/2024 12:47 AM CDT Lee Elena MD LAB BLOOD ORDERABLES Krystyna l Result Performing Organization Address [facility] de Phone Number [facility] [place] [address] * ECG 12 lead (11/12/2024 9:35 PM CDT) Ventricular Rate EKG/Min 93 BPM [facility] Atrial Rate 93 BPM [facility] SD-Interval (MSEC) 110 ms [facility] QRS-Interval (MSEC) 70 ms [facility] QT-Interval (MSEC) 396 ms [facility] QTc 492 ms [facility] P Virgie 28 degrees [facility] R Virgie 51 degrees [facility] T Virgie 163 degrees [facility] Diagnosis Sinus rhythm with short SD Low voltage QRS Possible Anterolateral infarct , age undetermined Abnormal ECG When compared with ECG of 09-NOV-2024 01:56, Significant changes have occurred Confirmed by Gustabo Mcdaniels MD ([id number]) on 11/14/2024 1:25:12 PM [facility] 11/12/2024 9:35 PM CDT 11/14/2024 1:25 PM CDT Lee Elena MD ECG ORDERABLES Final Res ult Performing Organization Address [facility]/ZIP Co de Phone Number [facility] * POCT glucose (11/12/2024 8:23 PM CDT) Glucose, POC 109 70 - 199 mg/dL Blood 11/12/2024 8:23 PM CDT 11/12/2024 8:23 PM CDT Lee Elena MD LAB POCT ORDERABLES - DEV ICE Final Result Performing Organization Address City/[facility]/ZIP Co de Phone Number [facility] [place] [address] * POCT glucose (11/12/2024 4:17 PM CDT) [facility] Glucose, POC 132 70 - 199 mg/dL Blood 11/12/2024 4:17 PM CDT 11/12/2024 4:17 PM CDT Lee Elena MD LAB POCT ORDERABLES - DEV ICE Final Result Performing Organization Address [facility] Co de Phone Number [facility] [place] [address] * MRSA Only (Staphylococcus aureus) Culture Nasal (11/12/2024 2:37 PM CDT) [facility] Report Final Report: Negative Nasal 11/12/2024 2:37 PM CDT 11/12/2024 3:35 PM CDT Narrative [facility] - 11/13/2024 6:40 PM CDT Testing performed by [facility] Microbiology Laboratory ([phone]). us Lee Elena MD LAB MICROBIOLOGY - GENERA L ORDERABLES Final Result Performing Organization Address [facility] Co de Phone Number [facility] [place] [address] * Respiratory pathogen panel Nasopharyngeal (11/12/2024 2:37 PM CDT) [facility] Influenza A RNA Not Detected Not Detected Influenza B RNA Not Detected Not Detected [facility] RSV RNA Not Detected Not Detected [facility] COVID-19 RNA Not Detected Not Detected [facility] Coronavirus 229E RNA Not Detected Not Detected [facility] Coronavirus HKU1 RNA Not Detected Not Detected [facility] Coronavirus NL63 RNA Not Detected Not Detected [facility] Coronavirus OC43 RNA Not Detected Not Detected [facility] Adenovirus DNA Not Detected Not Detected [facility] Metapneumovirus RNA Not Detected Not Detected [facility] Rhinovirus/Enterov irus RNA Not Detected Not Detected [facility] Parainfluenza 1 RNA Not Detected Not Detected [facility] Parainfluenza 2 RNA Not Detected Not Detected [facility] Parainfluenza 3 RNA Not Detected Not Detected [facility] Parainfluenza 4 RNA Not Detected Not Detected [facility] B. pertussis DNA Not Detected Not Detected [facility] B. parapertussis DNA Not Detected Not Detected [facility] C. pneumoniae DNA Not Detected Not Detected [facility] M. pneumoniae DNA Not Detected Not Detected [facility] Nasopharyngeal 11/12/2024 2: 37 PM CDT 11/12/2024 3:27 PM CDT Narrative [facility] - 11/12/2024 4:42 PM CDT Is the Patient experiencing symptoms consistent with COVID?->No Surveillance testing for transplant patient?->No Interpretive Data The Booster FilmArray Respiratory Panel (RP2.1) assay is a [...] assay has FDA clearance for testing of COLUMNIST swabs. The performance of additional specimen types has been assessed by the performing laboratory. The performance characteristics of this assay have been determined by [facility] Molecular Infectious Disease Laboratory. Current interpretive data was last revised on 22. Lee Elena MD LAB MICROBIOLOGY - GENERA L ORDERABLES Final Result [facility] [place] [address] * POCT glucose (11/12/2024 11:33 AM CDT) Glucose, POC 113 70 - 199 mg/dL Blood 11/12/2024 11:3 3 AM CDT 11/12/2024 11:33 AM CDT Lee Elena MD LAB POCT ORDERABLES - DEV ICE Final Result [facility] [place] [address] * XR Chest 1 View (11/12/2024 11:33 [...] DEV ICE Final Result Performing Organization Address [facility] Co de Phone Number [facility] Department [place] [address] * POCT glucose (11/12/2024 4:06 AM CDT) Glucose, POC 113 70 - 199 mg/dL Blood 11/12/2024 4:06 AM CDT 11/12/2024 4:06 AM CDT Lee Elena MD LAB POCT ORDERABLES - DEV ICE Final Result Performing Organization Address [facility]/State/ZIP Co de Phone Number [facility] Department [place] [address] * POCT glucose (11/12/2024 12:16 AM CDT) Pathologist [facility] Glucose, POC 110 70 - 199 mg/dL Blood 11/12/2024 12:1 6 AM CDT 11/12/2024 12:16 AM CDT Lee Elena MD LAB POCT ORDERABLES - DEV ICE Final Result Performing Organization Address [facility] de Phone Number [facility] [place] [address] * eGFR (11/11/2024 10:12 PM CDT) [facility] eGFR >90 >=60 mL/min/1. 73 [...] ORDERABLES Krystyna l Result Performing Organization Address City/[facility]/ZIP Co de Phone Number [facility] [place] [address] * (ABNORMAL) Differential, auto (11/11/2024 10:12 PM CDT) Neutrophil abs 9.51(H) 1.50 - 6.50 K/cumm Imm gran abs 0.27(H) 0.00 - 0.10 K/cumm [facility] Lymphocyte abs 2.15 0.80 - 3.30 K/cumm [facility] Monocyte abs 1.16(H) 0.20 - 0.80 K/cumm [facility] Eosinophil abs 0.10 0.00 - 0.50 K/cumm [facility] Basophil abs 0.06 0.00 - 0.10 K/cumm [facility] Neutrophil pct 71.7 % [facility] Comment: Interpretive Data Percent cell count reference ranges are not reported, since discordance with absolute values may lead to misinterpretation of CBC data. Current Interpretive Data was last revised on 2017. Imm gran pct 2.0 % [facility] Comment: Interpretive Data Percent cell count reference ranges are not reported, since discordance with absolute values may lead to misinterpretation of CBC data. Current Interpretive Data was last revised on 2017. Lymphocyte pct 16.2 % [facility] Comment: Interpretive Data Percent cell count reference ranges are not reported, since discordance with absolute values may lead to misinterpretation of CBC data. Current Interpretive Data was last revised on 2017. Monocyte pct 8.8 % [facility] Comment: Interpretive Data Percent cell count reference ranges are not reported, since discordance with absolute values may lead to misinterpretation of CBC data. Current Interpretive Data was last revised on 2017. Eosinophil pct 0.8 % [facility] Comment: Interpretive Data Percent cell count reference ranges are not reported, since discordance with absolute values may lead to misinterpretation of CBC data. Current Interpretive Data was last revised on 2017. Basophil pct 0.5 % [facility] Comment: Interpretive Data Percent cell count reference ranges are not reported, since discordance with absolute values may lead to misinterpretation of CBC data. Current Interpretive Data was last revised on 2017. Blood 11/11/2024 10:1 2 PM CDT 11/11/2024 11:52 PM CDT Lee Elena MD LAB BLOOD ORDERABLES Krystyna l Result Performing Organization Address [facility] Co de Phone Number [facility] [place] [address] * (ABNORMAL) CBC with auto differential (11/11/2024 10:12 PM CDT) WBC 13.25(H) 3.80 - 9.90 K/cumm Hgb 10.3(L) 11.9 - 15.5 g/dL [facility] Hct 29.0(L) 35.6 - 45.5 % [facility] Plt 162 150 - 400 K/cumm [facility] MPV 12.7(H) 9.1 - 12.3 fL [facility] RBC 3.10(L) 3.90 - 5.20 M/cumm [facility] MCV 93.5 81.3 - 96.4 fL [facility] MCH 33.2 27.1 - 33.3 pg [facility] MCHC 35.5 32.3 - 35.7 g/dL [facility] RDW CV 19.4(H) 11.1 - 14.9 % [facility] RDW SD 65.6(H) 35.7 - 48.1 fL [facility] NRBC abs 0.02(H) 0.00 - 0.01 K/cumm [facility] Blood 11/11/2024 10:1 2 PM CDT 11/11/2024 11:52 PM CDT Lee Elena MD LAB BLOOD ORDERABLES Krystyna meyers Result Performing Organization Address [facility]/ZIP Co de Phone Number [facility] [place] [address] * (ABNORMAL) Blood culture Blood (11/11/2024 10:12 PM CDT) Direct Specimen Exam Stain: Gram Positive Cocci in clusters Time to culture positivity (aerobic media): 13.7 hours Time to culture positivity (anaerobic media): 21.0 hours Report Final Report: Staphylococcus aureus For susceptibility results, refer to accession number [id number] on the blood culture from 11/09/2024 (.) [facility] Organism STAPHYLOCOCCUS AUREUS [facility] Blood 11/11/2024 10:1 2 PM CDT 11/11/2024 11:40 PM CDT Narrative [facility] - 11/15/2024 10:39 AM CDT From [...] performance characteristics have been verified by the [facility] Microbiology Laboratory. For questions about this culture, contact the Microbiology Laboratory at [phone]. Interpretive data was last revised on 24. us Lee Elena MD LAB MICROBIOLOGY - GENERA L ORDERABLES Final Result [facility] [place] [address] * (ABNORMAL) Blood culture Blood (11/11/2024 10:12 PM CDT) Direct Specimen Exam Stain: Gram Positive Cocci in clusters Time to culture positivity (aerobic media): 17.0 hours Time to culture positivity (anaerobic media): 21.2 hours Report Final Report: Staphylococcus aureus For susceptibility results, refer to accession number [id number] on the blood culture from 11/09/2024 (.) [facility] Organism STAPHYLOCOCCUS AUREUS [facility] Blood 11/11/2024 10:1 2 [...] performance characteristics have been verified by the [facility] Microbiology Laboratory. For questions about this culture, contact the Microbiology Laboratory at [phone]. Interpretive data was last revised on 24. us Lee Elena MD LAB MICROBIOLOGY - GENERA L ORDERABLES Final Result [facility] [place] [address] * Protime-INR (11/11/2024 10:12 PM CDT) PT 12.3 9.7 - 13.0 sec INR 1.14 0.90 - 1.20 [facility] Comment: Interpretive data Oral [...] ORDERABLES Krystyna l Result Performing Organization Address City/[facility] Co de Phone Number [facility] [place] [address] * (ABNORMAL) Phosphorus (11/11/2024 10:12 PM CDT) Phosphorus, pl 1.9(L) 2.3 - 4.5 mg/dL Blood 11/11/2024 10:1 2 PM CDT 11/11/2024 11:52 PM CDT Result [facility] Lee Elena MD LAB BLOOD ORDERABLES Krystyna l Result Performing Organization Address [facility] Co de Phone Number [facility] [place] [address] * Magnesium (11/11/2024 10:12 PM CDT) Magnesium 1.7 1.4 - 2.5 mg/dL Blood 11/11/2024 10:1 2 PM CDT 11/11/2024 11:52 PM CDT Lee Elena MD LAB BLOOD ORDERABLES Krystyna l Result Performing Organization Address [facility] Co de Phone Number [facility] [place] [address] * (ABNORMAL) Hepatic function panel (11/11/2024 10:12 PM CDT) [facility] Bilirubin, total 1.2 0.1 - 1.2 mg/dL Bilirubin, direct 0.6(H) 0.1 - 0.3 mg/dL [facility] Protein, pl 5.1(L) 6.5 - 8.5 g/dL [facility] Albumin 1.9(L) 3.5 - 5.0 g/dL [facility] Alk phos 200(H) 40 - 130 Units/L [facility] ALT 34 7 - 45 Units/L [facility] AST 70(H) 10 - 45 Units/L [facility] Blood 11/11/2024 10:1 2 PM CDT 11/11/2024 11:52 PM CDT Lee Elena MD LAB BLOOD ORDERABLES Krystyna l Result [facility] [place] [address] * (ABNORMAL) Basic metabolic panel (11/11/2024 10:12 PM CDT) [facility] Sodium 131(L) 135 - 145 mmol/L Potassium, pl 4.9 3.3 - 4.9 mmol/L [facility] Chloride 98 97 - 110 mmol/L [facility] CO2 23 22 - 32 mmol/L [facility] Anion gap 10 2 - 15 mmol/L [facility] BUN 6 6 - 25 mg/dL [facility] Creatinine 0.41(L) 0.60 - 1.10 mg/dL [facility] Glucose 78 70 - 199 mg/dL [facility] Comment: Interpretive Data Fasting [...] 2022. Calcium 7.8(L) 8.5 - 10.3 mg/dL [facility] Blood 11/11/2024 10:1 2 PM CDT 11/11/2024 11:52 PM CDT Lee Elena MD LAB BLOOD ORDERABLES Krystyna l Result Performing Organization Address City/[facility]/[place] [address] * POCT glucose (11/11/2024 8:08 PM CDT) Glucose, POC 111 70 - 199 mg/dL Blood 11/11/2024 8:08 PM CDT 11/11/2024 8:08 PM CDT Lee Elena MD LAB POCT ORDERABLES - DEV ICE Final Result Performing Organization Address City/[facility]/ZIP Co de Phone Number [facility] [place] [address] * POCT glucose (11/11/2024 4:42 PM CDT) Glucose, POC 108 70 - 199 mg/dL Blood 11/11/2024 4:42 PM CDT 11/11/2024 4:42 PM CDT Lee Elena MD LAB POCT ORDERABLES - DEV ICE Final Result Performing Organization Address City/[facility] Co de Phone Number [facility] [place] [address] * POCT glucose (11/11/2024 12:11 PM CDT) Glucose, POC 115 70 - 199 mg/dL Blood 11/11/2024 12:1 1 PM CDT 11/11/2024 12:11 PM CDT Lee Elena MD LAB POCT ORDERABLES - DEV ICE Final Result Performing Organization Address [facility]/ZIP Co de Phone Number [facility] [place] [address] * eGFR (11/11/2024 10:41 AM CDT) [facility] eGFR >90 >=60 mL/min/1. 73 [...] ORDERABLES Krystyna l Result Performing Organization Address City/[facility]/ZIP Co de Phone Number [facility] [place] [address] * Phosphorus (11/11/2024 10:41 AM CDT) Phosphorus, pl 2.3 2.3 - 4.5 mg/dL Blood 11/11/2024 10:4 1 AM CDT 11/11/2024 10:53 AM CDT Lee Elena MD LAB BLOOD ORDERABLES Krystyna l Result Performing Organization Address City/[facility]/ZIP Co de Phone Number [facility] [place] [address] * Magnesium (11/11/2024 10:41 AM CDT) [facility] Magnesium 1.6 1.4 - 2.5 mg/dL Blood 11/11/2024 10:4 1 AM CDT 11/11/2024 10:53 AM CDT Lee Elena MD LAB BLOOD ORDERABLES Krystyna l Result Performing Organization Address [facility] de Phone Number [facility] [place] [address] * (ABNORMAL) Basic metabolic panel (11/11/2024 10:41 AM CDT) [facility] Sodium 133(L) 135 - 145 mmol/L Potassium, pl 5.4(H) 3.3 - 4.9 mmol/L [facility] Comment:Hemolyzed; Potassium value may be falsely elevated by as much as 0.3-0.5 mmol/L. Suggest redraw and reanalysis. Chloride 104 97 - 110 mmol/L [facility] CO2 23 22 - 32 mmol/L [facility] Anion gap 6 2 - 15 mmol/L [facility] BUN 6 6 - 25 mg/dL [facility] Creatinine 0.37(L) 0.60 - 1.10 mg/dL [facility] Glucose 96 70 - 199 mg/dL [facility] Comment: Interpretive Data Fasting [...] 2022. Calcium 7.7(L) 8.5 - 10.3 mg/dL [facility] Blood 11/11/2024 10:4 1 AM CDT 11/11/2024 10:53 AM CDT Lee Elena MD LAB BLOOD ORDERABLES Krystyna l Result Performing Organization Address City/[facility] Co de Phone Number [facility] [place] [address] * POCT glucose (11/11/2024 9:24 AM CDT) Glucose, POC 98 70 - 199 mg/dL Blood 11/11/2024 9:24 AM CDT 11/11/2024 9:24 AM CDT Lee Elena MD LAB POCT ORDERABLES - DEV ICE Final Result Performing Organization Address [facility] Co de Phone Number [facility] [place] [address] * POCT glucose (11/10/2024 11:50 PM CDT) Glucose, POC 124 70 - 199 mg/dL Blood 11/10/2024 11:5 0 PM CDT 11/10/2024 11:50 PM CDT Lee Elena MD LAB POCT ORDERABLES - DEV ICE Final Result Performing Organization Address [facility] Co de Phone Number [facility] [place] [address] * eGFR (11/10/2024 9:24 PM CDT) Pathologist [facility] eGFR >90 >=60 mL/min/1. 73 m2 Comment: [...] MD LAB BLOOD ORDERABLES Krystyna meyers Result [facility] [place] [address] * (ABNORMAL) Differential, auto (11/10/2024 9:24 PM CDT) Pathologist [facility] Neutrophil abs 9.18(H) 1.50 - 6.50 K/cumm Imm gran abs 0.15(H) 0.00 - 0.10 K/cumm [facility] Lymphocyte abs 1.01 0.80 - 3.30 K/cumm [facility] Monocyte abs 0.84(H) 0.20 - 0.80 K/cumm [facility] Eosinophil abs 0.03 0.00 - 0.50 K/cumm [facility] Basophil abs 0.02 0.00 - 0.10 K/cumm [facility] Neutrophil pct 81.7 % [facility] Comment: Interpretive Data Percent cell count reference ranges are not reported, since discordance with absolute values may lead to misinterpretation of CBC data. Current Interpretive Data was last revised on 2017. Imm gran pct 1.3 % [facility] Comment: Interpretive Data Percent cell count reference ranges are not reported, since discordance with absolute values may lead to misinterpretation of CBC data. Current Interpretive Data was last revised on 2017. Lymphocyte pct 9.0 % [facility] Comment: Interpretive Data Percent cell count reference ranges are not reported, since discordance with absolute values may lead to misinterpretation of CBC data. Current Interpretive Data was last revised on 2017. Monocyte pct 7.5 % [facility] Comment: Interpretive Data Percent cell count reference ranges are not reported, since discordance with absolute values may lead to misinterpretation of CBC data. Current Interpretive Data was last revised on 2017. Eosinophil pct 0.3 % [facility] Comment: Interpretive Data Percent cell count reference ranges are not reported, since discordance with absolute values may lead to misinterpretation of CBC data. Current Interpretive Data was last revised on 2017. Basophil pct 0.2 % [facility] Comment: Interpretive Data Percent cell count reference ranges are not reported, since discordance with absolute values may lead to misinterpretation of CBC data. Current Interpretive Data was last revised on 2017. Blood 11/10/2024 9:24 PM CDT 11/10/2024 11:00 PM CDT us Lee Elena MD LAB BLOOD ORDERABLES Krystyna l Result [facility] [place] [address] * (ABNORMAL) CBC with auto differential (11/10/2024 9:24 PM CDT) WBC 11.23(H) 3.80 - 9.90 K/cumm Hgb 10.0(L) 11.9 - 15.5 g/dL [facility] Hct 29.3(L) 35.6 - 45.5 % [facility] Plt 129(L) 150 - 400 K/cumm [facility] Comment:No clot detected in sample. MPV 12.1 9.1 - 12.3 fL [facility] RBC 3.09(L) 3.90 - 5.20 M/cumm [facility] MCV 94.8 81.3 - 96.4 fL [facility] Comment:MCV delta due to charlotte arent blood transfusion. MCH 32.4 27.1 - 33.3 pg [facility] MCHC 34.1 32.3 - 35.7 g/dL [facility] RDW CV 19.7(H) 11.1 - 14.9 % [facility] RDW SD 67.2(H) 35.7 - 48.1 fL [facility] NRBC abs 0.00 0.00 - 0.01 K/cumm [facility] Blood 11/10/2024 9:24 PM CDT 11/10/2024 11:00 PM CDT us Lee Elena MD LAB BLOOD ORDERABLES Krystyna l Result [facility] [place] [address] * Protime-INR (11/10/2024 9:24 PM CDT) PT 12.6 9.7 - 13.0 sec INR 1.16 0.90 - 1.20 [facility] Comment: Interpretive data Oral [...] ORDERABLES Krystyna l Result Performing Organization Address City/[facility] Co de Phone Number [facility] [place] [address] * (ABNORMAL) Phosphorus (11/10/2024 9:24 PM CDT) Pathologist [facility] Phosphorus, pl 2.1(L) 2.3 - 4.5 mg/dL Blood 11/10/2024 9:24 PM CDT 11/10/2024 11:00 PM CDT Lee Elena MD LAB BLOOD ORDERABLES Krystyna l Result Performing Organization Address [facility] Co de Phone Number [facility] [place] [address] * (ABNORMAL) Magnesium (11/10/2024 9:24 PM CDT) [facility] Magnesium 2.8(H) 1.4 - 2.5 mg/dL Blood 11/10/2024 9:24 PM CDT 11/10/2024 11:00 PM CDT Lee Elena MD LAB BLOOD ORDERABLES Krystyna l Result Performing Organization Address City/[facility] Co de Phone Number [facility] [place] [address] * (ABNORMAL) Hepatic function panel (11/10/2024 9:24 PM CDT) Bilirubin, total 1.2 0.1 - 1.2 mg/dL Bilirubin, direct 0.9(H) 0.1 - 0.3 mg/dL [facility] Protein, pl 4.9(L) 6.5 - 8.5 g/dL [facility] Albumin 1.8(L) 3.5 - 5.0 g/dL [facility] Alk phos 161(H) 40 - 130 Units/L [facility] ALT 72(H) 7 - 45 Units/L [facility] AST 100(H) 10 - 45 Units/L [facility] Blood 11/10/2024 9:24 PM CDT 11/10/2024 11:00 PM CDT Lee Elena MD LAB BLOOD ORDERABLES Krystyna l Result [facility] [place] [address] * (ABNORMAL) Basic metabolic panel (11/10/2024 9:24 PM CDT) Sodium 134(L) 135 - 145 mmol/L Potassium, pl 3.4 3.3 - 4.9 mmol/L [facility] Chloride 102 97 - 110 mmol/L [facility] CO2 22 22 - 32 mmol/L [facility] Anion gap 10 2 - 15 mmol/L [facility] BUN 5(L) 6 - 25 mg/dL [facility] Creatinine 0.35(L) 0.60 - 1.10 mg/dL [facility] Glucose 111 70 - 199 mg/dL [facility] Comment: Interpretive Data Fasting [...] 2022. Calcium 8.1(L) 8.5 - 10.3 mg/dL [facility] Blood 11/10/2024 9:24 PM CDT 11/10/2024 11:00 PM CDT Lee Elena MD LAB BLOOD ORDERABLES Krystyna l Result Performing Organization Address [facility] Co de Phone Number [facility] [place] [address] * POCT glucose (11/10/2024 8:06 PM CDT) Glucose, POC 139 70 - 199 mg/dL Blood 11/10/2024 8:06 PM CDT 11/10/2024 8:06 PM CDT Lee Elena MD LAB POCT ORDERABLES - DEV ICE Final Result Performing Organization Address [facility] Co de Phone Number [facility] [place] [address] * POCT glucose (11/10/2024 4:37 PM CDT) Glucose, POC 104 70 - 199 mg/dL Blood 11/10/2024 4:37 PM CDT 11/10/2024 4:37 PM CDT Lee Elena MD LAB POCT ORDERABLES - DEV ICE Final Result Performing Organization Address [facility] de Phone Number [facility] [place] [address] * XR Ribs Bilateral 4 or More [...] and hematocrit (11/10/2024 3:00 PM CDT) Pathologist [facility] Hgb 9.5(L) 11.9 - 15.5 g/dL Hct 27.8(L) 35.6 - 45.5 % [facility] Blood 11/10/2024 3:00 PM CDT 11/10/2024 3:38 PM CDT Ash Valencia MD LAB BLOOD ORDERABLES Final Resul t [facility] Department [place] [address] * (ABNORMAL) Blood culture Blood (11/10/2024 2:37 PM CDT) Pathologist [facility] Direct Specimen Exam Stain: Gram Positive Cocci in clusters Time to culture positivity (aerobic media): 22.3 hours Time to culture positivity (anaerobic media): 29.9 hours Report Final Report: Staphylococcus aureus For susceptibility results, refer to accession number [id number] on the blood culture from 11/09/2024 (.) [facility] Organism STAPHYLOCOCCUS AUREUS [facility] Blood 11/10/2024 2:37 PM CDT 11/10/2024 3:44 PM CDT Narrative [facility] - 11/14/2024 1:07 PM CDT From [...] performance characteristics have been verified by the [facility] Microbiology Laboratory. For questions about this culture, contact the Microbiology Laboratory at [phone]. Interpretive data was last revised on 24. us Lee Elena MD LAB MICROBIOLOGY - GENERA L ORDERABLES Final Result [facility] [place] [address] * (ABNORMAL) Blood culture Blood (11/10/2024 2:37 PM CDT) Direct Specimen Exam Stain: Gram Positive Cocci in clusters Time to culture positivity (aerobic media): 18.6 hours Time to culture positivity (anaerobic media): 22.9 hours Report Final Report: Staphylococcus aureus For susceptibility results, refer to accession number [id number] on the blood culture from 11/09/2024 (.) [facility] Organism STAPHYLOCOCCUS AUREUS [facility] Blood 11/10/2024 2:37 PM CDT 11/10/2024 3:44 PM CDT N[facility]ative [facility] - 11/14/2024 1:09 PM CDT Collection->Peripheral [...] performance characteristics have been verified by the [facility] Microbiology Laboratory. For questions about this culture, contact the Microbiology Laboratory at [phone]. Interpretive data was last revised on 24. Lee Elena MD LAB MICROBIOLOGY - GENERA L ORDERABLES Final Result Performing Organization Address City/[facility]/ZIP Co de Phone Number [facility] [place] [address] * Transfuse RBC (11/10/2024 2:03 PM CDT) Blood Lee Elena MD BLOOD TRANSFUSION ORDERAB LES Final Result Performing Organization Address City/[facility] Co de Phone Number [facility] [place] [address] * eGFR (11/10/2024 2:00 PM CDT) Pathologist [facility] eGFR >90 >=60 mL/min/1. 73 m2 Comment: [...] ORDERABLES Krystyna l Result Performing Organization Address City/[facility]/ZIP Co de Phone Number [facility] [place] [address] * Phosphorus (11/10/2024 2:00 PM CDT) Phosphorus, pl 2.7 2.3 - 4.5 mg/dL Blood 11/10/2024 2:00 PM CDT 11/10/2024 3:40 PM CDT Lee Elena MD LAB BLOOD ORDERABLES Krystyna l Result [facility] [place] [address] * Magnesium (11/10/2024 2:00 PM CDT) Magnesium 1.5 1.4 - 2.5 mg/dL Blood 11/10/2024 2:00 PM CDT 11/10/2024 3:40 PM CDT Lee Elena MD LAB BLOOD ORDERABLES Krystyna l Result [facility] [place] [address] * (ABNORMAL) Basic metabolic panel (11/10/2024 2:00 PM CDT) Sodium 135 135 - 145 mmol/L Potassium, pl 3.8 3.3 - 4.9 mmol/L [facility] Chloride 104 97 - 110 mmol/L [facility] CO2 20(L) 22 - 32 mmol/L [facility] Anion gap 11 2 - 15 mmol/L [facility] BUN 6 6 - 25 mg/dL [facility] Creatinine 0.36(L) 0.60 - 1.10 mg/dL [facility] Glucose 99 70 - 199 mg/dL [facility] Comment: Interpretive Data Fasting [...] 2022. Calcium 8.1(L) 8.5 - 10.3 mg/dL [facility] Blood 11/10/2024 2:00 PM CDT 11/10/2024 3:40 PM CDT Lee Elena MD LAB BLOOD ORDERABLES Krystyna l Result [facility] [place] [address] * POCT glucose (11/10/2024 11:29 AM CDT) Glucose, POC 131 70 - 199 mg/dL Blood 11/10/2024 11:2 9 AM CDT 11/10/2024 11:29 AM CDT Lee Elena MD LAB POCT ORDERABLES - DEV ICE Final Result Performing Organization Address [facility] [place] [address] * Type and screen (11/10/2024 8:35 AM CDT) ABO Rh A Positive Zach, indirect Negative [facility] Blood 11/10/2024 8:35 AM CDT 11/10/2024 9:58 AM CDT Narrative [facility] - 11/10/2024 10:47 AM CDT Has the patient had Daratumumab or Isatuximab in the past 6 months?->Unknown Lee Elena MD LAB BLOOD BANK TEST ORDER ALINE Final Result Performing Organization Address [facility] [place] [address] * Prepare RBC: 1 Units (11/10/2024 8:10 AM CDT) Product code [id number] Unit Number [id number] [facility] Product Blood Type APOS [facility] Dispense Status PRESUMED TRANSFUSED [facility] Blood 11/10/2024 8:10 AM CDT 11/10/2024 8:10 AM CDT Narrative [facility] - 11/11/2024 12:55 AM CDT Are special requirements needed? (All products are leukoreduced and CMV- safe)- >No Date required:-[id number] LRRBC # of Eelyf-7-Hyjxl Reasons:-Hgb <7 g/dL} Lee Elena MD BLOOD BANK PRODUCT ORDERA BLES Final Result Performing Organization Address [facility] de Phone Number [facility] [place] [address] * POCT glucose (11/10/2024 7:52 AM CDT) Glucose, POC 112 70 - 199 mg/dL Blood 11/10/2024 7:52 AM CDT 11/10/2024 7:52 AM CDT us Lee Elena MD LAB POCT ORDERABLES - DEV ICE Final Result Performing Organization Address [facility] de Phone Number [facility] [place] [address] * eGFR (11/10/2024 5:42 AM CDT) eGFR [...] ORDERABLES Krystyna l Result Performing Organization Address [facility]/ZIP Co de Phone Number [facility] [place] [address] * (ABNORMAL) Hemoglobin and hematocrit (11/10/2024 5:42 AM CDT) Hgb 6.8(L) 11.9 - 15.5 g/dL Hct 19.8(L) 35.6 - 45.5 % [facility] Blood 11/10/2024 5:42 AM CDT 11/10/2024 6:16 AM CDT Lee Elena MD LAB BLOOD ORDERABLES Krystyna l Result Performing Organization Address City/[facility] [place] [address] * Phosphorus (11/10/2024 5:42 AM CDT) Pathologist [facility] Phosphorus, pl 3.6 2.3 - 4.5 mg/dL Blood 11/10/2024 5:42 AM CDT 11/10/2024 6:22 AM CDT Lee Elena MD LAB BLOOD ORDERABLES Krystyna l Result Performing Organization Address City/[facility]/ZIP Co de Phone Number [facility] [place] [address] * Magnesium (11/10/2024 5:42 AM CDT) [facility] Magnesium 2.1 1.4 - 2.5 mg/dL Blood 11/10/2024 5:42 AM CDT 11/10/2024 6:22 AM CDT Lee Elena MD LAB BLOOD ORDERABLES Krystyna l Result [facility] [place] [address] * (ABNORMAL) Basic metabolic panel (11/10/2024 5:42 AM CDT) Sodium 134(L) 135 - 145 mmol/L Potassium, pl 4.5 3.3 - 4.9 mmol/L [facility] Chloride 106 97 - 110 mmol/L [facility] CO2 21(L) 22 - 32 mmol/L [facility] Anion gap 7 2 - 15 mmol/L [facility] BUN 7 6 - 25 mg/dL [facility] Creatinine 0.36(L) 0.60 - 1.10 mg/dL [facility] Glucose 98 70 - 199 mg/dL [facility] Comment: Interpretive Data Fasting [...] 2022. Calcium 7.7(L) 8.5 - 10.3 mg/dL [facility] Blood 11/10/2024 5:42 AM CDT 11/10/2024 6:22 AM CDT Lee Elena MD LAB BLOOD ORDERABLES Krystyna l Result [facility] Department [place] [address] * POCT glucose (11/10/2024 4:15 AM CDT) Pathologist [facility] Glucose, POC 112 70 - 199 mg/dL Blood 11/10/2024 4:15 AM CDT 11/10/2024 4:15 AM CDT Lee Elena MD LAB POCT ORDERABLES - DEV ICE Final Result [facility] [place] [address] * POCT glucose (11/09/2024 10:17 PM CDT) Glucose, POC 119 70 - 199 mg/dL Blood 11/09/2024 10:1 7 PM CDT 11/09/2024 10:17 PM CDT Lee Elena MD LAB POCT ORDERABLES - DEV ICE Final Result Performing Organization Address [facility] de Phone Number [facility] [place] [address] * eGFR (11/09/2024 10:09 PM CDT) Pathologist [facility] eGFR >90 >=60 mL/min/1. 73 m2 Comment: [...] MD LAB BLOOD ORDERABLES Krystyna meyers Result [facility] [place] [address] * (ABNORMAL) Differential, auto (11/09/2024 10:09 PM CDT) Neutrophil abs 4.11 1.50 - 6.50 K/cumm Imm gran abs 0.03 0.00 - 0.10 K/cumm [facility] Lymphocyte abs 0.51(L) 0.80 - 3.30 K/cumm [facility] Monocyte abs 0.26 0.20 - 0.80 K/cumm [facility] Eosinophil abs 0.01 0.00 - 0.50 K/cumm [facility] Basophil abs 0.01 0.00 - 0.10 K/cumm [facility] Neutrophil pct 83.4 % [facility] Comment: Interpretive Data Percent cell count reference ranges are not reported, since discordance with absolute values may lead to misinterpretation of CBC data. Current Interpretive Data was last revised on 2017. Imm gran pct 0.6 % [facility] Comment: Interpretive Data Percent cell count reference ranges are not reported, since discordance with absolute values may lead to misinterpretation of CBC data. Current Interpretive Data was last revised on 2017. Lymphocyte pct 10.3 % [facility] Comment: Interpretive Data Percent cell count reference ranges are not reported, since discordance with absolute values may lead to misinterpretation of CBC data. Current Interpretive Data was last revised on 2017. Monocyte pct 5.3 % [facility] Comment: Interpretive Data Percent cell count reference ranges are not reported, since discordance with absolute values may lead to misinterpretation of CBC data. Current Interpretive Data was last revised on 2017. Eosinophil pct 0.2 % [facility] Comment: Interpretive Data Percent cell count reference ranges are not reported, since discordance with absolute values may lead to misinterpretation of CBC data. Current Interpretive Data was last revised on 2017. Basophil pct 0.2 % [facility] Comment: Interpretive Data Percent cell count reference ranges are not reported, since discordance with absolute values may lead to misinterpretation of CBC data. Current Interpretive Data was last revised on 2017. Blood 11/09/2024 10:0 9 PM CDT 11/09/2024 10:29 PM CDT Lee Elena MD LAB BLOOD ORDERABLES Krystyna l Result Performing Organization Address City/[facility]/ZIP Co de Phone Number [facility] [place] [address] * (ABNORMAL) CBC with auto differential (11/09/2024 10:09 PM CDT) WBC 4.93 3.80 - 9.90 K/cumm Hgb 7.0(L) 11.9 - 15.5 g/dL [facility] Hct 20.4(L) 35.6 - 45.5 % [facility] Plt 100(L) 150 - 400 K/cumm [facility] MPV 10.9 9.1 - 12.3 fL [facility] RBC 2.02(L) 3.90 - 5.20 M/cumm [facility] MCV 101.0(H) 81.3 - 96.4 fL [facility] MCH 34.7(H) 27.1 - 33.3 pg [facility] MCHC 34.3 32.3 - 35.7 g/dL [facility] RDW CV 17.1(H) 11.1 - 14.9 % [facility] RDW SD 61.7(H) 35.7 - 48.1 fL [facility] NRBC abs 0.02(H) 0.00 - 0.01 K/cumm [facility] Blood 11/09/2024 10:0 9 PM CDT 11/09/2024 10:29 PM CDT Lee Elena MD LAB BLOOD ORDERABLES Krystyna l Result Performing Organization Address City/[facility]/ZIP Co de Phone Number [facility] [place] [address] * (ABNORMAL) Protime-INR (11/09/2024 10:09 PM CDT) Pathologist [facility] PT 17.4(H) 9.7 - 13.0 sec INR 1.60(H) 0.90 - 1.20 [facility] Comment: Interpretive data Oral [...] ORDERABLES Krystyna l Result Performing Organization Address City/[facility]/ZIP Co de Phone Number [facility] [place] [address] * (ABNORMAL) Phosphorus (11/09/2024 10:09 PM CDT) [facility] Phosphorus, pl 2.2(L) 2.3 - 4.5 mg/dL Blood 11/09/2024 10:0 9 PM CDT 11/09/2024 10:28 PM CDT Lee Elena MD LAB BLOOD ORDERABLES Krystyna l Result [facility] [place] [address] * Magnesium (11/09/2024 10:09 PM CDT) [facility] Magnesium 1.5 1.4 - 2.5 mg/dL Blood 11/09/2024 10:0 9 PM CDT 11/09/2024 10:28 PM CDT Lee Elena MD LAB BLOOD ORDERABLES Krystyna l Result Performing Organization Address [facility]/ZIP Co de Phone Number [facility] [place] [address] * (ABNORMAL) Hepatic function panel (11/09/2024 10:09 PM CDT) Pathologist [facility] Bilirubin, total 1.2 0.1 - 1.2 mg/dL Bilirubin, direct 0.9(H) 0.1 - 0.3 mg/dL [facility] Protein, pl 4.5(L) 6.5 - 8.5 g/dL [facility] Albumin 1.8(L) 3.5 - 5.0 g/dL [facility] Alk phos 102 40 - 130 Units/L [facility] ALT 110(H) 7 - 45 Units/L [facility] AST 121(H) 10 - 45 Units/L [facility] Blood 11/09/2024 10:0 9 PM CDT 11/09/2024 10:28 PM CDT Lee Elena MD LAB BLOOD ORDERABLES Krystyna l Result Performing Organization Address [facility] Co de Phone Number [facility] [place] [address] * (ABNORMAL) Basic metabolic panel (11/09/2024 10:09 PM CDT) [facility] Sodium 137 135 - 145 mmol/L Potassium, pl 3.3 3.3 - 4.9 mmol/L [facility] Chloride 104 97 - 110 mmol/L [facility] CO2 23 22 - 32 mmol/L [facility] Anion gap 10 2 - 15 mmol/L [facility] BUN 8 6 - 25 mg/dL [facility] Creatinine 0.38(L) 0.60 - 1.10 mg/dL [facility] Glucose 102 70 - 199 mg/dL [facility] Comment: Interpretive Data Fasting [...] 2022. Calcium 8.0(L) 8.5 - 10.3 mg/dL [facility] Blood 11/09/2024 10:0 9 PM CDT 11/09/2024 10:28 PM CDT Lee Elena MD LAB BLOOD ORDERABLES Krystyna l Result Performing Organization Address City/[facility] Co de Phone Number [facility] [place] [address] * POCT glucose (11/09/2024 6:05 PM CDT) Glucose, POC 101 70 - 199 mg/dL Blood 11/09/2024 6:05 PM CDT 11/09/2024 6:05 PM CDT Lee Elena MD LAB POCT ORDERABLES - DEV ICE Final Result Performing Organization Address [facility] Co de Phone Number [facility] [place] [address] * POCT glucose (11/09/2024 5:11 PM CDT) Glucose, POC 118 70 - 199 mg/dL Blood 11/09/2024 5:11 PM CDT 11/09/2024 5:11 PM CDT Lee Elena MD LAB POCT ORDERABLES - DEV ICE Final Result Performing Organization Address [facility] Co de Phone Number [facility] [place] [address] * Lactate (11/09/2024 1:20 PM CDT) Lactate 2.0 0.7 - 2.0 mmol/L Blood 11/09/2024 1:20 PM CDT 11/09/2024 2:24 PM CDT Lee Elena MD LAB BLOOD ORDERABLES Krystyna l Result [facility] [place] [address] * eGFR (11/09/2024 1:20 PM CDT) eGFR [...] LAB BLOOD ORDERABLES Krystyna l Result [facility] [place] [address] * (ABNORMAL) Differential, auto (11/09/2024 1:20 PM CDT) Neutrophil abs 4.77 1.50 - 6.50 K/cumm Imm gran abs 0.03 0.00 - 0.10 K/cumm [facility] Lymphocyte abs 0.25(L) 0.80 - 3.30 K/cumm [facility] Monocyte abs 0.19(L) 0.20 - 0.80 K/cumm [facility] Eosinophil abs 0.00 0.00 - 0.50 K/cumm [facility] Basophil abs 0.00 0.00 - 0.10 K/cumm [facility] Neutrophil pct 91.0 % [facility] Comment: Interpretive Data Percent cell count reference ranges are not reported, since discordance with absolute values may lead to misinterpretation of CBC data. Current Interpretive Data was last revised on 2017. Imm gran pct 0.6 % [facility] Comment: Interpretive Data Percent cell count reference ranges are not reported, since discordance with absolute values may lead to misinterpretation of CBC data. Current Interpretive Data was last revised on 2017. Lymphocyte pct 4.8 % [facility] Comment: Interpretive Data Percent cell count reference ranges are not reported, since discordance with absolute values may lead to misinterpretation of CBC data. Current Interpretive Data was last revised on 2017. Monocyte pct 3.6 % [facility] Comment: Interpretive Data Percent cell count reference ranges are not reported, since discordance with absolute values may lead to misinterpretation of CBC data. Current Interpretive Data was last revised on 2017. Eosinophil pct 0.0 % [facility] Comment: Interpretive Data Percent cell count [...] ORDERABLES Krystyna mira Result Performing Organization Address [facility] Co de Phone Number [facility] [place] [address] * (ABNORMAL) CBC with auto differential (11/09/2024 1:20 PM CDT) [facility] WBC 5.24 3.80 - 9.90 K/cumm Hgb 7.8(L) 11.9 - 15.5 g/dL [facility] Hct 22.3(L) 35.6 - 45.5 % [facility] Plt 120(L) 150 - 400 K/cumm [facility] MPV 11.2 9.1 - 12.3 fL [facility] RBC 2.24(L) 3.90 - 5.20 M/cumm [facility] MCV 99.6(H) 81.3 - 96.4 fL [facility] MCH 34.8(H) 27.1 - 33.3 pg [facility] MCHC 35.0 32.3 - 35.7 g/dL [facility] RDW CV 16.8(H) 11.1 - 14.9 % [facility] RDW SD 59.7(H) 35.7 - 48.1 fL [facility] NRBC abs 0.00 0.00 - 0.01 K/cumm [facility] Blood 11/09/2024 1:20 PM CDT 11/09/2024 2:25 PM CDT Lee Elena MD LAB BLOOD ORDERABLES Krystyna meyers Result Performing Organization Address [facility]/ZIP Co de Phone Number [facility] [place] [address] * (ABNORMAL) Phosphorus (11/09/2024 1:20 PM CDT) Pathologist [facility] Phosphorus, pl 2.1(L) 2.3 - 4.5 mg/dL Blood 11/09/2024 1:20 PM CDT 11/09/2024 2:25 PM CDT Result [facility] Lee Elena MD LAB BLOOD ORDERABLES Krystyna l Result Performing Organization Address [facility] Co de Phone Number [facility] [place] [address] * Magnesium (11/09/2024 1:20 PM CDT) Pathologist [facility] Magnesium 1.8 1.4 - 2.5 mg/dL Blood 11/09/2024 1:20 PM CDT 11/09/2024 2:25 PM CDT Result [facility] Lee Elena MD LAB BLOOD ORDERABLES Krystyna l Result Performing Organization Address [facility] de Phone Number [facility] [place] [address] * (ABNORMAL) Hepatic function panel (11/09/2024 1:20 PM CDT) Pathologist [facility] Bilirubin, total 1.7(H) 0.1 - 1.2 mg/dL Bilirubin, direct 1.2(H) 0.1 - 0.3 mg/dL [facility] Protein, pl 5.2(L) 6.5 - 8.5 g/dL [facility] Albumin 2.2(L) 3.5 - 5.0 g/dL [facility] Alk phos 125 40 - 130 Units/L [facility] ALT 152(H) 7 - 45 Units/L [facility] AST 173(H) 10 - 45 Units/L [facility] Blood 11/09/2024 1:20 PM CDT 11/09/2024 2:25 PM CDT Lee Elena MD LAB BLOOD ORDERABLES Krystyna l Result Performing Organization Address [facility] Co de Phone Number [facility] [place] [address] * (ABNORMAL) Basic metabolic panel (11/09/2024 1:20 PM CDT) Sodium 134(L) 135 - 145 mmol/L Potassium, pl 4.4 3.3 - 4.9 mmol/L [facility] Chloride 105 97 - 110 mmol/L [facility] Comment:Repeated and Verifie d CO2 22 22 - 32 mmol/L [facility] Anion gap 8 2 - 15 mmol/L [facility] BUN 8 6 - 25 mg/dL [facility] Creatinine 0.39(L) 0.60 - 1.10 mg/dL [facility] Glucose 98 70 - 199 mg/dL [facility] Comment: Interpretive Data Fasting [...] 2022. Calcium 9.6 8.5 - 10.3 mg/dL [facility] Blood 11/09/2024 1:20 PM CDT 11/09/2024 2:25 PM CDT us Lee Elena MD LAB BLOOD ORDERABLES Krystyna l Result [facility] [place] [address] * POCT glucose (11/09/2024 11:33 AM CDT) Glucose, POC 115 70 - 199 mg/dL Blood 11/09/2024 11:3 3 AM CDT 11/09/2024 11:33 AM CDT Lee Elena MD LAB POCT ORDERABLES - DEV ICE Final Result Performing Organization Address [facility] Co de Phone Number [facility] Department [place] [address] * POCT glucose (11/09/2024 7:00 AM CDT) [facility] Glucose, POC 146 70 - 199 mg/dL Blood 11/09/2024 7:00 AM CDT 11/09/2024 7:00 AM CDT Lee Elena MD LAB POCT ORDERABLES - DEV ICE Final Result Performing Organization Address [facility] [place] [address] * C. difficile testing Stool (11/09/2024 5:53 AM CDT) [facility] Result Positive Negative Toxin Result Negative Negative [facility] C. diff result Negative, free toxin. Negative, free toxin [facility] C. diff interp GDH+/toxin- results almost never represent true C. difficile infection (CDI). Results may represent colonization with C. difficile without CDI, detection of a bacteria other than toxigenic C. difficile, or a false negative toxin assay. If there is a high index of suspicion for CDI, additional testing by PCR is available upon request. [facility] Stool 11/09/2024 5:53 AM CDT 11/09/2024 8:03 AM CDT Lee Elena MD LAB MICROBIOLOGY - GENERA L ORDERABLES Final Result Performing Organization Address [facility] Co de Phone Number [facility] [place] [address] * POCT glucose (11/09/2024 4:41 AM CDT) Pathologist [facility] Glucose, POC 102 70 - 199 mg/dL Blood 11/09/2024 4:41 AM CDT 11/09/2024 4:41 AM CDT Lee Elena MD LAB POCT ORDERABLES - DEV ICE Final Result Performing Organization Address [facility] de Phone Number [facility] [place] [address] * Influenza A/B, RSV, and COVID-19 PCR Nasopharyngeal (11/09/2024 3:40 AM CDT) [facility] COVID-19 RNA Negative Negative [facility] Influenza A RNA Negative Negative [facility] Influenza B RNA Negative Negative [facility] RSV RNA Negative Negative [facility] Comment: Interpretive data: Testing performed by [facility] ([phone]). This test is performed using the [employer] Xpert Xpress CoV-2/Flu/RSV plus assay. This is a multiplex, real-time reverse transcriptase PCR assay intended for the qualitative detection of nucleic acid from SARS-CoV-2, influenza A, influenza B, and respiratory syncytial virus. This assay has been cleared by the [place] Food and Drug administration. The performance characteristics have been verified by the [facility]. Results must be considered in the clinical context, and a negative result does not rule out infection. Interpretive Data last revised 2023 Nasopharyngeal 11/09/2024 3: 40 AM CDT 11/09/2024 4:57 AM CDT Narrative [facility] - 11/09/2024 5:52 AM CDT Is the Patient experiencing symptoms consistent with COVID?->No Lee Elena MD LAB MICROBIOLOGY - GENERA L ORDERABLES Final Result Performing Organization Address [facility] Co de Phone Number [facility] [place] [address] [facility] * (ABNORMAL) Hemoglobin and hematocrit (11/09/2024 3:40 AM CDT) Hgb 7.7(L) 11.9 - 15.5 g/dL Hct 20.9(L) 35.6 - 45.5 % [facility] Blood 11/09/2024 3:40 AM CDT 11/09/2024 3:50 AM CDT us Lee Elena MD LAB BLOOD ORDERABLES Krystyna meyers Result [facility] [place] [address] * XR Chest 1 View (11/09/2024 2:18 [...] ur Yellow Yellow Clarity, ur Cloudy(A) Clear [facility] Specific gravity, ur 1.018 1.003 - 1.030 [facility] pH, urine 6.0 [facility] Comment: Interpretive Data U rine pH is affected by diet, medications, systemic acid-base disturbances, and renal tubular function. pH may affect urinary stone formation. For example, urine pH below 6.0 may help reduce the tendency for calcium phosphate stones and pH greater than 6.0 may reduce the tendency for uric acid stone formation. Source: [facility] [place] Current Interpretive Data was last revised on 2017 Protein, ur ql Trace Negative [facility] Glucose, ur ql Negative Negative [facility] Ketones, ur Negative Negative [facility] Bilirubin, ur Negative Negative [facility] Blood, ur Negative Negative [facility] Urobilinogen, ur <2.0 <2.0 mg/dL [facility] Nitrite, ur Positive(A) Negative [facility] Leukocyte esterase, ur 1+(A) Negative [facility] UA reflex comment Reflex to microscopic UA will be performed. [facility] Urine, in and out catheter 11/09/2024 2:18 AM CDT 11/09/2024 3:31 AM CDT us Lee Elena MD LAB MICROBIOLOGY - GENERA L ORDERABLES Final Result [facility] Department [place] [address] * (ABNORMAL) Urinalysis, microscopic only (11/09/2024 2:18 AM CDT) WBC, ur 21-50(A) 0 - 5 /HPF RBC, ur 0-2 0 - 2 /HPF [facility] Epithelial cells, renal, ur 1-5(A) 0 - 0 /HPF [facility] Bacteria, ur 2+(A) [facility] Mucous, ur Present(A) [facility] Culture Reflex Comment Reflex to urine culture will be performed. [facility] Urine, in and out catheter 11/09/2024 2:18 AM CDT 11/09/2024 3:31 AM CDT Lee Elena MD LAB URINE ORDERABLES Krystyna l Result Performing Organization Address [facility]/ZIP Co de Phone Number [facility] [place] [address] * (ABNORMAL) Urine culture Urine, in and out catheter (11/09/2024 2:18 AM CDT) Report Final Report: Greater than or equal to 100,000 colonies/mL of Klebsiella pneumoniae Plus growth of clinically insignificant bacterial jemal. (.) Organism KLEBSIELLA PNEUMONIAE [facility] Organism PLUS GROWTH OF CLINICALLY INSIGNIFICANT JEMAL. [facility] Urine, in and out catheter 11/09/2024 2:18 AM CDT 11/09/2024 5:03 AM CDT Narrative [facility] - 11/11/2024 10:29 AM CDT Urine culture reflexed based upon urinalysis results. Testing performed by [facility] ([phone]) Organism Antibiotic Method Susceptibility Klebsiella pneumoniae Ampicillin [...] L ORDERABLES Final Result Performing Organization Address City/[facility]/ZIP Co de Phone Number [facility] [place] [address] * ECG 12 lead (11/09/2024 1:56 AM CDT) Ventricular Rate EKG/Min 121 BPM [facility] Atrial Rate 121 BPM [facility] SD-Interval (MSEC) 86 ms [facility] QRS-Interval (MSEC) 72 ms [facility] QT-Interval (MSEC) 334 ms [facility] QTc 474 ms [facility] P Virgie 19 degrees [facility] R Virgie 22 degrees [facility] T Virgie -78 degrees [facility] Diagnosis Sinus tachycardia with short SD Low voltage QRS Possible Inferior infarct , age undetermined ST & T wave abnormality, consider anterior ischemia Abnormal ECG When compared with ECG of 08-NOV-2024 05:56, SD interval has decreased Borderline criteria for Inferior infarct are now Present ST now depressed in Anterior leads Confirmed by SHALINI RODRIGUEZ M.D ([id number]) on 11/09/2024 10:00:29 PM [facility] 11/09/2024 1:56 AM CDT 11/09/2024 10:00 PM CDT us Ash Valencia MD ECG ORDERABLES Final Result [facility] * (ABNORMAL) Blood culture Blood (11/09/2024 1:39 AM CDT) Pathologist [facility] Direct Specimen Exam Stain: Gram Positive Cocci in clusters Time to culture positivity (aerobic media): 9.4 hours Time to culture positivity (anaerobic media): 14.3 hours Report Final Report: Staphylococcus aureus For susceptibility results, refer to accession number [id number] on the blood culture from 11/09/2024 (.) [facility] Organism STAPHYLOCOCCUS AUREUS [facility] Blood 11/09/2024 1:39 AM CDT 11/09/2024 2:13 AM CDT Narrative [facility] - 11/12/2024 10:31 AM CDT From [...] performance characteristics have been verified by the [facility]. For questions about this culture, contact the Microbiology Laboratory at [phone]. Interpretive data was last revised on 24. Lee Elena MD LAB MICROBIOLOGY - GENERA L ORDERABLES Final Result Performing Organization Address City/[facility]/ZIP Co de Phone Number [facility] Department [place] [address] * (ABNORMAL) Lactate (11/09/2024 1:30 AM CDT) Lactate 2.7(H) 0.7 - 2.0 mmol/L Blood 11/09/2024 1:30 AM CDT 11/09/2024 1:47 AM CDT Lee Elena MD LAB BLOOD ORDERABLES Krystyna l Result Performing Organization Address City/[facility]/ZIP Co de Phone Number [facility] Department [place] [address] * (ABNORMAL) Blood culture Blood (11/09/2024 1:30 AM CDT) Direct Specimen Exam Stain: Gram Positive Cocci in clusters Time to culture positivity (aerobic media): 8.5 hours Time to culture positivity (anaerobic media): 12.9 hours Notification of: Gram Positive Cocci in clusters called to and read back by: Lee Elena MD [phone] on 11/09/2024 12:01:28 by: Chula Andujar MLS Direct Specimen Exam Molecular Analysis: Methicillin-suscep tible Staphylococcus aureus (MSSA) detected by the [facility] [employer] BCID-GP panel. This test does not exclude the possibility of a mixed bacterial infection. Notification of: Methicillin-suscep tible Staphylococcus aureus called to and read back by: Dr. Ash Valencia [phone] on 11/09/2024 13:55:26 by: Ivanna Cruz [facility] Report Final Report: Staphylococcus aureus Methicillin susceptible (MSSA) by penicillin binding protein 2a (PBP2a) testing. (.) [facility] Organism STAPHYLOCOCCUS AUREUS [facility] Blood 11/09/2024 1:30 AM CDT 11/09/2024 2:13 AM CDT Narrative [facility] - 11/12/2024 10:17 AM CDT Collection->Peripheral 1. [...] performance characteristics have been verified by the [facility]. For questions about this culture, contact the Microbiology Laboratory at [phone]. Interpretive data was last revised on 24. [...] MICROBIOLOGY - GENERA L ORDERABLES Final Result [facility] [place] [address] * (ABNORMAL) Protime-INR (11/09/2024 1:30 AM CDT) PT 18.4(H) 9.7 - 13.0 sec INR 1.69(H) 0.90 - 1.20 [facility] Comment: Interpretive data Oral anticoagulant therapeutic ranges: Venous thromboembolism prophylaxis or treatment: 2.0-3.0 CARDIOLOGY Standard range: 2.0-3.0 High-intensity range: 2.5-3.5 Refer to indication-specific guidelines for appropriate target ranges for prosthetic heart valve replacement. Current interpretive data was last revised on 2019. Blood 11/09/2024 1:30 AM CDT 11/09/2024 1:44 AM CDT Juliano Arredondo MD LAB BLOOD ORDERABLE S Final Result [facility] [place] [address] * (ABNORMAL) CBC without differential (11/09/2024 1:30 AM CDT) WBC 5.79 3.80 - 9.90 K/cumm Hgb 7.7(L) 11.9 - 15.5 g/dL [facility] Comment:FIORDALIZA RODGERS RN Large delta with no apparant cause, correlate with clinical context and redraw if indicated. This result has been called to FIORDALIZA RODGERS RN by [email or web address] on 11/09/2024 02:26:21. Hct 21.2(L) 35.6 - 45.5 % [facility] Plt 152 150 - 400 K/cumm [facility] MPV 10.4 9.1 - 12.3 fL [facility] RBC 2.22(L) 3.90 - 5.20 M/cumm [facility] MCV 95.5 81.3 - 96.4 fL [facility] MCH 34.7(H) 27.1 - 33.3 pg [facility] MCHC 36.3(H) 32.3 - 35.7 g/dL [facility] RDW CV 16.7(H) 11.1 - 14.9 % [facility] RDW SD 57.2(H) 35.7 - 48.1 fL [facility] NRBC abs 0.00 0.00 - 0.01 K/cumm [facility] Blood 11/09/2024 1:30 AM CDT 11/09/2024 1:59 AM CDT Lee Elena MD LAB BLOOD ORDERABLES Krystyna l Result Performing Organization Address City/[facility]/ZIP Co de Phone Number [facility] [place] [address] * POCT glucose (11/08/2024 11:56 PM CDT) [facility] Glucose, POC 120 70 - 199 mg/dL Blood 11/08/2024 11:5 6 PM CDT 11/08/2024 11:56 PM CDT Lee Elena MD LAB POCT ORDERABLES - DEV ICE Final Result Performing Organization Address City/[facility]/ZIP Co de Phone Number [facility] [place] [address] * eGFR (11/08/2024 10:32 PM CDT) eGFR [...] LAB BLOOD ORDERABLE S Final Result [facility] [place] [address] * (ABNORMAL) Phosphorus (11/08/2024 10:32 PM CDT) Phosphorus, pl 1.7(L) 2.3 - 4.5 mg/dL Blood 11/08/2024 10:3 2 PM CDT 11/08/2024 11:39 PM CDT Juliano Arredondo MD LAB BLOOD ORDERABLE S Final Result [facility] [place] [address] * Magnesium (11/08/2024 10:32 PM CDT) Pathologist [facility] Magnesium 1.7 1.4 - 2.5 mg/dL Blood 11/08/2024 10:3 2 PM CDT 11/08/2024 11:39 PM CDT us Juliano Arredondo MD LAB BLOOD ORDERABLE S Final Result Performing Organization Address City/[facility]/ZIP Co de Phone Number [facility] [place] [address] * (ABNORMAL) Hepatic function panel (11/08/2024 10:32 PM CDT) [facility] Bilirubin, total 1.7(H) 0.1 - 1.2 mg/dL Bilirubin, direct 1.4(H) 0.1 - 0.3 mg/dL [facility] Protein, pl 5.1(L) 6.5 - 8.5 g/dL [facility] Albumin 2.2(L) 3.5 - 5.0 g/dL [facility] Alk phos 138(H) 40 - 130 Units/L [facility] ALT 175(H) 7 - 45 Units/L [facility] AST 253(H) 10 - 45 Units/L [facility] Blood 11/08/2024 10:3 2 PM CDT 11/08/2024 11:39 PM CDT us Lee Elena MD LAB BLOOD ORDERABLES Krystyna l Result [facility] [place] [address] * (ABNORMAL) Basic metabolic panel (11/08/2024 10:32 PM CDT) Pathologist [facility] Sodium 130(L) 135 - 145 mmol/L Potassium, pl 2.8(L) 3.3 - 4.9 mmol/L [facility] Chloride 93(L) 97 - 110 mmol/L [facility] CO2 26 22 - 32 mmol/L [facility] Anion gap 11 2 - 15 mmol/L [facility] BUN 11 6 - 25 mg/dL [facility] Creatinine 0.45(L) 0.60 - 1.10 mg/dL [facility] Glucose 106 70 - 199 mg/dL [facility] Comment: Interpretive Data Fasting [...] 2022. Calcium 7.6(L) 8.5 - 10.3 mg/dL [facility] Blood 11/08/2024 10:3 2 PM CDT 11/08/2024 11:39 PM CDT us Juliano Arredondo MD LAB BLOOD ORDERABLE S Final Result Performing Organization Address City/[facility]/ZIP Co de Phone Number [facility] [place] [address] * POCT glucose (11/08/2024 7:33 PM CDT) [facility] Signature Glucose, POC 118 70 - 199 mg/dL Blood 11/08/2024 7:33 PM CDT 11/08/2024 7:33 PM CDT us Lee Elena MD LAB POCT ORDERABLES - DEV ICE Final Result Performing Organization Address [facility]/ZIP Co de Phone Number [facility] [place] [address] * POCT glucose (11/08/2024 4:40 PM CDT) Glucose, POC 99 70 - 199 mg/dL Blood 11/08/2024 4:40 PM CDT 11/08/2024 4:40 PM CDT Lee Elena MD LAB POCT ORDERABLES - DEV ICE Final Result Performing Organization Address [facility] de Phone Number [facility] [place] [address] * POCT glucose (11/08/2024 7:51 AM CDT) Glucose, POC 97 70 - 199 mg/dL Blood 11/08/2024 7:51 AM CDT 11/08/2024 7:51 AM CDT Lee Elena MD LAB POCT ORDERABLES - DEV ICE Final Result Performing Organization Address [facility] de Phone Number [facility] [place] [address] * ECG 12 lead (11/08/2024 5:56 AM CDT) Ventricular Rate EKG/Min 129 BPM [facility] Atrial Rate 129 BPM [facility] SD-Interval (MSEC) 126 ms [facility] QRS-Interval (MSEC) 72 ms [facility] QT-Interval (MSEC) 294 ms [facility] QTc 430 ms [facility] P Virgie 47 degrees [facility] R Virgie 40 degrees [facility] T Virgie -48 degrees [facility] Diagnosis Sinus tachycardia T wave abnormality, consider anterior ischemia Abnormal ECG When compared with ECG of 06-NOV-2024 04:42, No significant change was found Confirmed by SHALINI RODRIGUEZ M.D ([id number]) on 11/08/2024 4:40:32 PM [facility] 11/08/2024 5:56 AM CDT 11/08/2024 4:40 PM CDT Juliano Arredondo MD ECG ORDERABLES Fin al Result [facility] * POCT glucose (11/08/2024 4:16 AM CDT) Glucose, POC 102 70 - 199 mg/dL Blood 11/08/2024 4:16 AM CDT 11/08/2024 4:16 AM CDT Lee Elena MD LAB POCT ORDERABLES - DEV ICE Final Result [facility] [place] [address] * (ABNORMAL) Differential, auto (11/08/2024 3:45 AM CDT) [facility] Neutrophil abs 2.96 1.50 - 6.50 K/cumm Imm gran abs 0.01 0.00 - 0.10 K/cumm [facility] Lymphocyte abs 0.33(L) 0.80 - 3.30 K/cumm [facility] Monocyte abs 0.29 0.20 - 0.80 K/cumm [facility] Eosinophil abs 0.01 0.00 - 0.50 K/cumm [facility] Basophil abs 0.01 0.00 - 0.10 K/cumm [facility] Neutrophil pct 82.0 % [facility] Comment: Interpretive Data Percent cell count reference ranges are not reported, since discordance with absolute values may lead to misinterpretation of CBC data. Current Interpretive Data was last revised on 2017. Imm gran pct 0.3 % [facility] Comment: Interpretive Data Percent cell count reference ranges are not reported, since discordance with absolute values may lead to misinterpretation of CBC data. Current Interpretive Data was last revised on 2017. Lymphocyte pct 9.1 % [facility] Comment: Interpretive Data Percent cell count reference ranges are not reported, since discordance with absolute values may lead to misinterpretation of CBC data. Current Interpretive Data was last revised on 2017. Monocyte pct 8.0 % [facility] Comment: Interpretive Data Percent cell count reference ranges are not reported, since discordance with absolute values may lead to misinterpretation of CBC data. Current Interpretive Data was last revised on 2017. Eosinophil pct 0.3 % [facility] Comment: Interpretive Data Percent cell count reference ranges are not reported, since discordance with absolute values may lead to misinterpretation of CBC data. Current Interpretive Data was last revised on 2017. Basophil pct 0.3 % [facility] Comment: Interpretive Data Percent cell count reference ranges are not reported, since discordance with absolute values may lead to misinterpretation of CBC data. Current Interpretive Data was last revised on 2017. Blood 11/08/2024 3:45 AM CDT 11/08/2024 4:06 AM CDT us Lee Elena MD LAB BLOOD ORDERABLES Krystyna l Result Performing Organization Address City/[facility] de Phone Number [facility] [place] [address] * (ABNORMAL) Protime-INR (11/08/2024 3:45 AM CDT) PT 14.7(H) 9.7 - 13.0 sec INR 1.35(H) 0.90 - 1.20 [facility] Comment: Interpretive data Oral [...] ORDERABLE S Final Result Performing Organization Address [facility] de Phone Number [facility] [place] [address] * (ABNORMAL) CBC without differential (11/08/2024 3:45 AM CDT) Pathologist [facility] WBC 3.60(L) 3.80 - 9.90 K/cumm Hgb 11.0(L) 11.9 - 15.5 g/dL [facility] Hct 32.0(L) 35.6 - 45.5 % [facility] Plt 192 150 - 400 K/cumm [facility] MPV 11.0 9.1 - 12.3 fL [facility] RBC 3.19(L) 3.90 - 5.20 M/cumm [facility] MCV 100.3(H) 81.3 - 96.4 fL [facility] MCH 34.5(H) 27.1 - 33.3 pg [facility] MCHC 34.4 32.3 - 35.7 g/dL [facility] RDW CV 16.6(H) 11.1 - 14.9 % [facility] RDW SD 59.6(H) 35.7 - 48.1 fL [facility] NRBC abs 0.02(H) 0.00 - 0.01 K/cumm [facility] Blood 11/08/2024 3:45 AM CDT 11/08/2024 4:02 AM CDT us Juliano Arredondo MD LAB BLOOD ORDERABLE S Final Result [facility] [place] [address] * POCT glucose (11/08/2024 1:29 AM CDT) [facility] Glucose, POC 110 70 - 199 mg/dL Blood 11/08/2024 1:29 AM CDT 11/08/2024 1:29 AM CDT us Lee Elena MD LAB POCT ORDERABLES - DEV ICE Final Result Performing Organization Address [facility] [facility] Co de Phone Number [facility] Department [place] [address] * eGFR (11/07/2024 9:52 PM CDT) eGFR [...] ORDERABLE S Final Result Performing Organization Address [facility] Co de Phone Number [facility] [place] [address] * Phosphorus (11/07/2024 9:52 PM CDT) Phosphorus, pl 2.8 2.3 - 4.5 mg/dL Blood 11/07/2024 9:52 PM CDT 11/07/2024 10:37 PM CDT Juliano Arredondo MD LAB BLOOD ORDERABLE S Final Result Performing Organization Address City/[facility] Co de Phone Number [facility] Department [place] [address] * Magnesium (11/07/2024 9:52 PM CDT) [facility] Magnesium 2.4 1.4 - 2.5 mg/dL Blood 11/07/2024 9:52 PM CDT 11/07/2024 10:37 PM CDT us Juliano Arredondo MD LAB BLOOD ORDERABLE S Final Result Performing Organization Address [facility] de Phone Number [facility] [place] [address] * (ABNORMAL) Hepatic function panel (11/07/2024 9:52 PM CDT) [facility] Bilirubin, total 2.1(H) 0.1 - 1.2 mg/dL Bilirubin, direct 1.5(H) 0.1 - 0.3 mg/dL [facility] Protein, pl 6.3(L) 6.5 - 8.5 g/dL [facility] Albumin 2.6(L) 3.5 - 5.0 g/dL [facility] Alk phos 265(H) 40 - 130 Units/L [facility] ALT 315(H) 7 - 45 Units/L [facility] AST 670(H) 10 - 45 Units/L [facility] Comment:Reviewed Blood 11/07/2024 9:52 PM CDT 11/07/2024 10:37 PM CDT us Lee Elena MD LAB BLOOD ORDERABLES Krystyna l Result Performing Organization Address City/[facility] Co de Phone Number [facility] Department [place] [address] * (ABNORMAL) Basic metabolic panel (11/07/2024 9:52 PM CDT) Sodium 134(L) 135 - 145 mmol/L Potassium, pl 3.7 3.3 - 4.9 mmol/L [facility] Chloride 95(L) 97 - 110 mmol/L [facility] CO2 24 22 - 32 mmol/L [facility] Anion gap 15 2 - 15 mmol/L [facility] BUN 7 6 - 25 mg/dL [facility] Creatinine 0.39(L) 0.60 - 1.10 mg/dL [facility] Glucose 113 70 - 199 mg/dL [facility] Comment: Interpretive Data Fasting [...] 2022. Calcium 8.6 8.5 - 10.3 mg/dL [facility] Blood 11/07/2024 9:52 PM CDT 11/07/2024 10:37 PM CDT us Juliano Arredondo MD LAB BLOOD ORDERABLE S Final Result Performing Organization Address City/[facility]/ZIP Co de Phone Number [facility] [place] [address] * POCT glucose (11/07/2024 7:49 PM CDT) Glucose, POC 123 70 - 199 mg/dL Blood 11/07/2024 7:49 PM CDT 11/07/2024 7:49 PM CDT us Lee Elena MD LAB POCT ORDERABLES - DEV ICE Final Result Performing Organization Address City/[facility]/ZIP Co de Phone Number [facility] [place] [address] * POCT glucose (11/07/2024 4:53 PM CDT) Glucose, POC 115 70 - 199 mg/dL Blood 11/07/2024 4:53 PM CDT 11/07/2024 4:53 PM CDT Lee Elena MD LAB POCT ORDERABLES - DEV ICE Final Result [facility] [place] [address] * POCT glucose (11/07/2024 11:13 AM CDT) Glucose, POC 150 70 - 199 mg/dL Blood 11/07/2024 11:1 3 AM CDT 11/07/2024 11:13 AM CDT us Lee Elena MD LAB POCT ORDERABLES - DEV ICE Final Result Performing Organization Address City/[facility] de Phone Number [facility] Department [place] [address] * eGFR (11/07/2024 10:19 AM CDT) eGFR [...] ORDERABLE S Final Result Performing Organization Address City/[facility] Co de Phone Number [facility] [place] [address] * Phosphorus (11/07/2024 10:19 AM CDT) Phosphorus, pl 3.5 2.3 - 4.5 mg/dL Blood 11/07/2024 10:1 9 AM CDT 11/07/2024 11:22 AM CDT Juliano Arredondo MD LAB BLOOD ORDERABLE S Final Result Performing Organization Address [facility] de Phone Number [facility] Department [place] [address] * Magnesium (11/07/2024 10:19 AM CDT) Magnesium 1.5 1.4 - 2.5 mg/dL Blood 11/07/2024 10:1 9 AM CDT 11/07/2024 11:22 AM CDT Juliano Arredondo MD LAB BLOOD ORDERABLE S Final Result Performing Organization Address City/[facility] Co de Phone Number [facility] [place] [address] * (ABNORMAL) Basic metabolic panel (11/07/2024 10:19 AM CDT) Sodium 137 135 - 145 mmol/L Potassium, pl 3.8 3.3 - 4.9 mmol/L [facility] Chloride 99 97 - 110 mmol/L [facility] CO2 26 22 - 32 mmol/L [facility] Anion gap 12 2 - 15 mmol/L [facility] BUN 6 6 - 25 mg/dL [facility] Creatinine 0.37(L) 0.60 - 1.10 mg/dL [facility] Glucose 127 70 - 199 mg/dL [facility] Comment: Interpretive Data Fasting [...] 2022. Calcium 8.2(L) 8.5 - 10.3 mg/dL [facility] Blood 11/07/2024 10:1 9 AM CDT 11/07/2024 11:22 AM CDT us Juliano Arredondo MD LAB BLOOD ORDERABLE S Final Result Performing Organization Address City/[facility]/ZIP Co de Phone Number [facility] [place] [address] * POCT glucose (11/07/2024 7:34 AM CDT) Glucose, POC 129 70 - 199 mg/dL Blood 11/07/2024 7:34 AM CDT 11/07/2024 7:34 AM CDT us Lee Elena MD LAB POCT ORDERABLES - DEV ICE Final Result [facility] [place] [address] * Protime-INR (11/07/2024 4:47 AM CDT) [facility] PT 11.1 9.7 - 13.0 sec INR 1.03 0.90 - 1.20 [facility] Comment: Interpretive data Oral anticoagulant therapeutic ranges: Venous thromboembolism prophylaxis or treatment: 2.0-3.0 CARDIOLOGY Standard range: 2.0-3.0 High-intensity range: 2.5-3.5 Refer to indication-specific guidelines for appropriate target ranges for prosthetic heart valve replacement. Current interpretive data was last revised on 2019. Blood 11/07/2024 4:47 AM CDT 11/07/2024 5:37 AM CDT us Juliano Arredondo MD LAB BLOOD ORDERABLE S Final Result [facility] Department [place] [address] * (ABNORMAL) CBC without differential (11/07/2024 4:47 AM CDT) [facility] WBC 5.50 3.80 - 9.90 K/cumm Hgb 9.4(L) 11.9 - 15.5 g/dL [facility] Hct 28.0(L) 35.6 - 45.5 % [facility] Plt 150 150 - 400 K/cumm [facility] MPV 11.0 9.1 - 12.3 fL [facility] RBC 2.73(L) 3.90 - 5.20 M/cumm [facility] MCV 102.6(H) 81.3 - 96.4 fL [facility] MCH 34.4(H) 27.1 - 33.3 pg [facility] MCHC 33.6 32.3 - 35.7 g/dL [facility] RDW CV 16.1(H) 11.1 - 14.9 % [facility] RDW SD 59.1(H) 35.7 - 48.1 fL [facility] NRBC abs 0.00 0.00 - 0.01 K/cumm [facility] Blood 11/07/2024 4:47 AM CDT 11/07/2024 4:57 AM CDT Juliano Arredondo MD LAB BLOOD ORDERABLE S Final Result Performing Organization Address [facility] Co de Phone Number [facility] [place] [address] * (ABNORMAL) Hepatic function panel (11/07/2024 4:47 AM CDT) Bilirubin, total 1.6(H) 0.1 - 1.2 mg/dL Bilirubin, direct 1.0(H) 0.1 - 0.3 mg/dL [facility] Protein, pl 5.4(L) 6.5 - 8.5 g/dL [facility] Albumin 2.4(L) 3.5 - 5.0 g/dL [facility] Alk phos 271(H) 40 - 130 Units/L [facility] ALT 250(H) 7 - 45 Units/L [facility] AST 137(H) 10 - 45 Units/L [facility] Blood 11/07/2024 4:47 AM CDT 11/07/2024 4:56 AM CDT Juliano Arredondo MD LAB BLOOD ORDERABLE S Final Result Performing Organization Address City/[facility]/ZIP Co de Phone Number [facility] Department [place] [address] * POCT glucose (11/07/2024 4:29 AM CDT) Glucose, POC 133 70 - 199 mg/dL Blood 11/07/2024 4:29 AM CDT 11/07/2024 4:29 AM CDT Lee Elena MD LAB POCT ORDERABLES - DEV ICE Final Result Performing Organization Address [facility] Co de Phone Number [facility] Department [place] [address] * eGFR (11/06/2024 9:12 PM CDT) eGFR [...] ORDERABLE S Final Result Performing Organization Address [facility] Co de Phone Number [facility] [place] [address] * Phosphorus (11/06/2024 9:12 PM CDT) Phosphorus, pl 3.3 2.3 - 4.5 mg/dL Blood 11/06/2024 9:12 PM CDT 11/06/2024 9:53 PM CDT Juliano Arredondo MD LAB BLOOD ORDERABLE S Final Result [facility] Department [place] [address] * Magnesium (11/06/2024 9:12 PM CDT) [facility] Magnesium 2.2 1.4 - 2.5 mg/dL Blood 11/06/2024 9:12 PM CDT 11/06/2024 9:53 PM CDT Juliano Arredondo MD LAB BLOOD ORDERABLE S Final Result Performing Organization Address [facility] Co de Phone Number [facility] Department [place] [address] * (ABNORMAL) Basic metabolic panel (11/06/2024 9:12 PM CDT) [facility] Sodium 135 135 - 145 mmol/L Potassium, pl 4.5 3.3 - 4.9 mmol/L [facility] Chloride 100 97 - 110 mmol/L [facility] CO2 27 22 - 32 mmol/L [facility] Anion gap 8 2 - 15 mmol/L [facility] BUN 4(L) 6 - 25 mg/dL [facility] Creatinine 0.36(L) 0.60 - 1.10 mg/dL [facility] Glucose 106 70 - 199 mg/dL [facility] Comment: Interpretive Data Fasting [...] 2022. Calcium 8.1(L) 8.5 - 10.3 mg/dL [facility] Blood 11/06/2024 9:12 PM CDT 11/06/2024 9:53 PM CDT us Juliano Arredondo MD LAB BLOOD ORDERABLE S Final Result [facility] [place] [address] * POCT glucose (11/06/2024 8:41 PM CDT) Glucose, POC 112 70 - 199 mg/dL Blood 11/06/2024 8:41 PM CDT 11/06/2024 8:41 PM CDT us Lee Elena MD LAB POCT ORDERABLES - DEV ICE Final Result Performing Organization Address City/[facility] Co de Phone Number [facility] [place] [address] * eGFR (11/06/2024 3:51 PM CDT) eGFR [...] OR DERABLES Final Result Performing Organization Address [facility] Co de Phone Number [facility] [place] [address] * Phosphorus (11/06/2024 3:51 PM CDT) Pathologist [facility] Phosphorus, pl 3.4 2.3 - 4.5 mg/dL Blood 11/06/2024 3:51 PM CDT 11/06/2024 4:30 PM CDT Mar George MD LAB BLOOD OR DERABLES Final Result Performing Organization Address [facility] de Phone Number [facility] Department [place] [address] * (ABNORMAL) Magnesium (11/06/2024 3:51 PM CDT) [facility] Magnesium 3.1(H) 1.4 - 2.5 mg/dL Blood 11/06/2024 3:51 PM CDT 11/06/2024 4:30 PM CDT Mar George MD LAB BLOOD OR DERABLES Final Result Performing Organization Address [facility] [place] [address] * (ABNORMAL) Hepatic function panel (11/06/2024 3:51 PM CDT) Bilirubin, total 1.3(H) 0.1 - 1.2 mg/dL Bilirubin, direct 0.6(H) 0.1 - 0.3 mg/dL [facility] Comment:Hemolyzed; result ma y be falsely decreased Protein, pl 4.9(L) 6.5 - 8.5 g/dL [facility] Albumin 2.1(L) 3.5 - 5.0 g/dL [facility] Alk phos 252(H) 40 - 130 Units/L [facility] ALT 243(H) 7 - 45 Units/L [facility] AST 150(H) 10 - 45 Units/L [facility] Comment:Hemolyzed; result ma y be falsely elevated Blood 11/06/2024 3:51 PM CDT 11/06/2024 4:30 PM CDT us Juliano Arredondo MD LAB BLOOD ORDERABLE S Final Result [facility] Department [place] [address] * (ABNORMAL) Basic metabolic panel (11/06/2024 3:51 PM CDT) Sodium 133(L) 135 - 145 mmol/L Potassium, pl 5.1(H) 3.3 - 4.9 mmol/L [facility] Comment:Hemolyzed; Potassium value may be falsely elevated by as much as 0.3-0.5 mmol/L. Suggest redraw and reanalysis. Chloride 98 97 - 110 mmol/L [facility] CO2 27 22 - 32 mmol/L [facility] Anion gap 8 2 - 15 mmol/L [facility] BUN 3(L) 6 - 25 mg/dL [facility] Creatinine 0.34(L) 0.60 - 1.10 mg/dL [facility] Glucose 129 70 - 199 mg/dL [facility] Comment: Interpretive Data Fasting [...] 2022. Calcium 7.8(L) 8.5 - 10.3 mg/dL [facility] Blood 11/06/2024 3:51 PM CDT 11/06/2024 4:30 PM CDT Mar George MD LAB BLOOD OR DERABLES Final Result Performing Organization Address City/[facility] Co de Phone Number [facility] [place] [address] * POCT glucose (11/06/2024 3:50 PM CDT) Glucose, POC 139 70 - 199 mg/dL Blood 11/06/2024 3:50 PM CDT 11/06/2024 3:50 PM CDT us Juliano Arredondo MD LAB POCT ORDERABLES - DEVICE Final Result Performing Organization Address [facility] Co de Phone Number [facility] [place] [address] * POCT glucose (11/06/2024 11:49 AM CDT) Glucose, POC 151 70 - 199 mg/dL Blood 11/06/2024 11:4 9 AM CDT 11/06/2024 11:49 AM CDT Juliano Arredondo MD LAB POCT ORDERABLES - DEVICE Final Result Performing Organization Address City/[facility] Co de Phone Number [facility] [place] [address] * POCT glucose (11/06/2024 7:55 AM CDT) Glucose, POC 126 70 - 199 mg/dL Blood 11/06/2024 7:55 AM CDT 11/06/2024 7:55 AM CDT us Juliano Arredondo MD LAB POCT ORDERABLES - DEVICE Final Result Performing Organization Address [facility] Co de Phone Number [facility] [place] [address] * eGFR (11/06/2024 5:38 AM CDT) eGFR [...] OR DERABLES Final Result Performing Organization Address City/[facility]/ZIP Co de Phone Number [facility] [place] [address] * Protime-INR (11/06/2024 5:38 AM CDT) PT 10.6 9.7 - 13.0 sec INR 0.98 0.90 - 1.20 [facility] Comment: Interpretive data Oral anticoagulant therapeutic ranges: Venous thromboembolism prophylaxis or treatment: 2.0-3.0 CARDIOLOGY Standard range: 2.0-3.0 High-intensity range: 2.5-3.5 Refer to indication-specific guidelines for appropriate target ranges for prosthetic heart valve replacement. Current interpretive data was last revised on 2019. Blood 11/06/2024 5:38 AM CDT 11/06/2024 5:58 AM CDT Juliano Arredondo MD LAB BLOOD ORDERABLE S Final Result [facility] Department [place] [address] * (ABNORMAL) CBC without differential (11/06/2024 5:38 AM CDT) WBC 3.46(L) 3.80 - 9.90 K/cumm Hgb 9.1(L) 11.9 - 15.5 g/dL [facility] Hct 26.1(L) 35.6 - 45.5 % [facility] Plt 146(L) 150 - 400 K/cumm [facility] MPV 10.2 9.1 - 12.3 fL [facility] RBC 2.58(L) 3.90 - 5.20 M/cumm [facility] MCV 101.2(H) 81.3 - 96.4 fL [facility] MCH 35.3(H) 27.1 - 33.3 pg [facility] MCHC 34.9 32.3 - 35.7 g/dL [facility] RDW CV 15.9(H) 11.1 - 14.9 % [facility] RDW SD 58.6(H) 35.7 - 48.1 fL [facility] NRBC abs 0.00 0.00 - 0.01 K/cumm [facility] Blood 11/06/2024 5:38 AM CDT 11/06/2024 5:57 AM CDT Juliano Arredondo MD LAB BLOOD ORDERABLE S Final Result Performing Organization Address [facility] Co de Phone Number [facility] [place] [address] * Phosphorus (11/06/2024 5:38 AM CDT) Phosphorus, pl 3.0 2.3 - 4.5 mg/dL Blood 11/06/2024 5:38 AM CDT 11/06/2024 5:57 AM CDT Mar George MD LAB BLOOD OR DERABLES Final Result Performing Organization Address [facility] Co de Phone Number [facility] [place] [address] * Magnesium (11/06/2024 5:38 AM CDT) [facility] Magnesium 1.7 1.4 - 2.5 mg/dL Blood 11/06/2024 5:38 AM CDT 11/06/2024 5:57 AM CDT Result [facility] Mar George MD LAB BLOOD OR DERABLES Final Result Performing Organization Address [facility] [place] [address] * (ABNORMAL) Hepatic function panel (11/06/2024 5:38 AM CDT) Bilirubin, total 1.3(H) 0.1 - 1.2 mg/dL Bilirubin, direct 1.0(H) 0.1 - 0.3 mg/dL [facility] Protein, pl 5.1(L) 6.5 - 8.5 g/dL [facility] Albumin 2.4(L) 3.5 - 5.0 g/dL [facility] Alk phos 291(H) 40 - 130 Units/L [facility] ALT 295(H) 7 - 45 Units/L [facility] AST 201(H) 10 - 45 Units/L [facility] Blood 11/06/2024 5:38 AM CDT 11/06/2024 5:57 AM CDT us Juliano Arredondo MD LAB BLOOD ORDERABLE S Final Result Performing Organization Address City/State/[facility] Co de Phone Number [facility] [place] [address] * (ABNORMAL) Basic metabolic panel (11/06/2024 5:38 AM CDT) Sodium 139 135 - 145 mmol/L Potassium, pl 4.4 3.3 - 4.9 mmol/L [facility] Chloride 102 97 - 110 mmol/L [facility] CO2 28 22 - 32 mmol/L [facility] Anion gap 9 2 - 15 mmol/L [facility] BUN 2(L) 6 - 25 mg/dL [facility] Creatinine 0.37(L) 0.60 - 1.10 mg/dL [facility] Glucose 104 70 - 199 mg/dL [facility] Comment: Interpretive Data Fasting [...] 2022. Calcium 8.3(L) 8.5 - 10.3 mg/dL [facility] Blood 11/06/2024 5:38 AM CDT 11/06/2024 5:57 AM CDT us Mar George MD LAB BLOOD OR DERABLES Final Result Performing Organization Address City/[facility] Co de Phone Number [facility] Department [place] [address] * ECG 12 lead (11/06/2024 4:42 AM CDT) [facility] Ventricular Rate EKG/Min 93 BPM [facility] Atrial Rate 93 BPM [facility] SD-Interval (MSEC) 106 ms [facility] QRS-Interval (MSEC) 76 ms [facility] QT-Interval (MSEC) 356 ms [facility] QTc 442 ms [facility] P Virgie 56 degrees [facility] R Virgie 45 degrees [facility] T Virgie 54 degrees [facility] Diagnosis Sinus rhythm with short SD Nonspecific T wave abnormality Abnormal ECG When compared with ECG of 05-NOV-2024 12:04, No significant change was found Confirmed by SHALINI RODRIGUEZ M.D ([id number]) on 11/06/2024 1:44:41 PM [facility] 11/06/2024 4:42 AM CDT 11/06/2024 1:44 PM CDT Juliano Arredondo MD ECG ORDERABLES Fin al Result Performing Organization Address [facility] de Phone Number [facility] * POCT glucose (11/06/2024 3:46 AM CDT) [facility] Glucose, POC 113 70 - 199 mg/dL Blood 11/06/2024 3:46 AM CDT 11/06/2024 3:46 AM CDT Juliano Arredondo MD LAB POCT ORDERABLES - DEVICE Final Result Performing Organization Address [facility] Co de Phone Number [facility] Department [place] [address] * eGFR (11/06/2024 12:39 AM CDT) [facility] eGFR >90 >=60 mL/min/1. 73 [...] MD LAB BLOOD OR DERABLES Final Result [facility] [place] [address] * Phosphorus (11/06/2024 12:39 AM CDT) Phosphorus, pl 2.9 2.3 - 4.5 mg/dL Blood 11/06/2024 12:3 9 AM CDT 11/06/2024 12:57 AM CDT Mar George MD LAB BLOOD OR DERABLES Final Result [facility] [place] [address] * Magnesium (11/06/2024 12:39 AM CDT) Magnesium 2.4 1.4 - 2.5 mg/dL Blood 11/06/2024 12:3 9 AM CDT 11/06/2024 12:57 AM CDT Mar George MD LAB BLOOD OR DERABLES Final Result [facility] [place] [address] * (ABNORMAL) Basic metabolic panel (11/06/2024 12:39 AM CDT) [facility] Sodium 139 135 - 145 mmol/L Potassium, pl 4.2 3.3 - 4.9 mmol/L [facility] Chloride 103 97 - 110 mmol/L [facility] CO2 28 22 - 32 mmol/L [facility] Anion gap 8 2 - 15 mmol/L [facility] BUN 2(L) 6 - 25 mg/dL [facility] Creatinine 0.37(L) 0.60 - 1.10 mg/dL [facility] Glucose 110 70 - 199 mg/dL [facility] Comment: Interpretive Data Fasting [...] 2022. Calcium 8.4(L) 8.5 - 10.3 mg/dL [facility] Blood 11/06/2024 12:3 9 AM CDT 11/06/2024 12:57 AM CDT Mar George MD LAB BLOOD OR DERABLES Final Result Performing Organization Address City/[facility]/ZIP Co de Phone Number [facility] [place] [address] * POCT glucose (11/05/2024 11:37 PM CDT) Glucose, POC 150 70 - 199 mg/dL Blood 11/05/2024 11:3 7 PM CDT 11/05/2024 11:37 PM CDT Juliano Arredondo MD LAB POCT ORDERABLES - DEVICE Final Result [facility] [place] [address] * POCT glucose (11/05/2024 8:03 PM CDT) Glucose, POC 138 70 - 199 mg/dL Blood 11/05/2024 8:03 PM CDT 11/05/2024 8:03 PM CDT Juliano Arredondo MD LAB POCT ORDERABLES - DEVICE Final Result Performing Organization Address City/[facility]/[place] [address] * eGFR (11/05/2024 3:44 PM CDT) eGFR [...] OR DERABLES Final Result Performing Organization Address City/[facility] Co de Phone Number [facility] [place] [address] * Phosphorus (11/05/2024 3:44 PM CDT) Phosphorus, pl 3.1 2.3 - 4.5 mg/dL Blood 11/05/2024 3:44 PM CDT 11/05/2024 3:58 PM CDT Mar George MD LAB BLOOD OR DERABLES Final Result Performing Organization Address [facility] Co de Phone Number [facility] [place] [address] * Magnesium (11/05/2024 3:44 PM CDT) Magnesium 1.7 1.4 - 2.5 mg/dL Blood 11/05/2024 3:44 PM CDT 11/05/2024 3:58 PM CDT Mar George MD LAB BLOOD OR DERABLES Final Result Performing Organization Address [facility] Co de Phone Number [facility] [place] [address] * (ABNORMAL) Hepatic function panel (11/05/2024 3:44 PM CDT) Bilirubin, total 1.2 0.1 - 1.2 mg/dL Bilirubin, direct 0.7(H) 0.1 - 0.3 mg/dL [facility] Protein, pl 4.8(L) 6.5 - 8.5 g/dL [facility] Albumin 2.0(L) 3.5 - 5.0 g/dL [facility] Alk phos 256(H) 40 - 130 Units/L [facility] ALT 337(H) 7 - 45 Units/L [facility] AST 277(H) 10 - 45 Units/L [facility] Blood 11/05/2024 3:44 PM CDT 11/05/2024 3:58 PM CDT us Juliano Arredondo MD LAB BLOOD ORDERABLE S Final Result [facility] [place] [address] * (ABNORMAL) Basic metabolic panel (11/05/2024 3:44 PM CDT) Sodium 136 135 - 145 mmol/L Potassium, pl 3.8 3.3 - 4.9 mmol/L [facility] Chloride 101 97 - 110 mmol/L [facility] CO2 26 22 - 32 mmol/L [facility] Anion gap 9 2 - 15 mmol/L [facility] BUN 2(L) 6 - 25 mg/dL [facility] Creatinine 0.35(L) 0.60 - 1.10 mg/dL [facility] Glucose 110 70 - 199 mg/dL [facility] Comment: Interpretive Data Fasting [...] 2022. Calcium 8.2(L) 8.5 - 10.3 mg/dL [facility] Blood 11/05/2024 3:44 PM CDT 11/05/2024 3:58 PM CDT Mar George MD LAB BLOOD OR DERABLES Final Result Performing Organization Address City/[facility]/ZIP Co de Phone Number [facility] [place] [address] * POCT glucose (11/05/2024 3:43 PM CDT) Pathologist [facility] Glucose, POC 119 70 - 199 mg/dL Blood 11/05/2024 3:43 PM CDT 11/05/2024 3:43 PM CDT Juliano rAredondo MD LAB POCT ORDERABLES - DEVICE Final Result Performing Organization Address [facility] Co de Phone Number [facility] [place] [address] * ECG 12 lead (11/05/2024 12:04 PM CDT) [facility] Ventricular Rate EKG/Min 83 BPM [facility] Atrial Rate 83 BPM [facility] SD-Interval (MSEC) 100 ms [facility] QRS-Interval (MSEC) 80 ms [facility] QT-Interval (MSEC) 376 ms [facility] QTc 441 ms [facility] P Virgie 66 degrees [facility] R Virgie 69 degrees [facility] T Virgie -77 degrees [facility] Diagnosis Sinus rhythm Nonspecific T wave abnormality Abnormal ECG Confirmed by Gustabo Mcdaniels MD ([id number]) on 11/05/2024 4:06:41 PM [facility] 11/05/2024 12:0 4 PM CDT 11/05/2024 4:06 PM CDT Juliano Arredondo MD ECG ORDERABLES Fin al Result Performing Organization Address City/[facility]/ZIP Co de Phone Number [facility] * POCT glucose (11/05/2024 11:41 AM CDT) Glucose, POC 120 70 - 199 mg/dL Blood 11/05/2024 11:4 1 AM CDT 11/05/2024 11:41 AM CDT Juliano Arredondo MD LAB POCT ORDERABLES - DEVICE Final Result Performing Organization Address [facility] Co de Phone Number [facility] [place] [address] * POCT glucose (11/05/2024 7:43 AM CDT) Pathologist [facility] Glucose, POC 113 70 - 199 mg/dL Blood 11/05/2024 7:43 AM CDT 11/05/2024 7:43 AM CDT Juliano Arredondo MD LAB POCT ORDERABLES - DEVICE Final Result Performing Organization Address [facility] de Phone Number [facility] [place] [address] * ECG 12 lead (11/05/2024 6:04 AM CDT) Pathologist [facility] Ventricular Rate EKG/Min 83 BPM [facility] Atrial Rate 83 BPM [facility] SD-Interval (MSEC) 98 ms [facility] QRS-Interval (MSEC) 68 ms [facility] QT-Interval (MSEC) 362 ms [facility] QTc 425 ms [facility] P Virgie 65 degrees [facility] R Virgie 45 degrees [facility] T Virgie 12 degrees [facility] Diagnosis Sinus rhythm with short SD T wave abnormality, consider anterior ischemia Abnormal ECG Confirmed by Gustabo Mcdaniels MD ([id number]) on 11/05/2024 4:02:55 PM [facility] 11/05/2024 6:04 AM CDT 11/05/2024 4:02 PM CDT us Juliano Arredondo MD ECG ORDERABLES Fin al Result [facility] * eGFR (11/05/2024 5:08 AM CDT) eGFR [...] OR DERABLES Final Result Performing Organization Address City/[facility] Co de Phone Number [facility] [place] [address] * Protime-INR (11/05/2024 5:08 AM CDT) PT 12.9 9.7 - 13.0 sec INR 1.19 0.90 - 1.20 [facility] Comment: Interpretive data Oral anticoagulant therapeutic ranges: Venous thromboembolism prophylaxis or treatment: 2.0-3.0 CARDIOLOGY Standard range: 2.0-3.0 High-intensity range: 2.5-3.5 Refer to indication-specific guidelines for appropriate target ranges for prosthetic heart valve replacement. Current interpretive data was last revised on 2019. Blood 11/05/2024 5:08 AM CDT 11/05/2024 5:36 AM CDT Juliano Arredondo MD LAB BLOOD ORDERABLE S Final Result [facility] [place] [address] * (ABNORMAL) CBC without differential (11/05/2024 5:08 AM CDT) WBC 2.28(L) 3.80 - 9.90 K/cumm Hgb 8.5(L) 11.9 - 15.5 g/dL [facility] Hct 24.5(L) 35.6 - 45.5 % [facility] Plt 126(L) 150 - 400 K/cumm [facility] MPV 11.0 9.1 - 12.3 fL [facility] RBC 2.48(L) 3.90 - 5.20 M/cumm [facility] MCV 98.8(H) 81.3 - 96.4 fL [facility] MCH 34.3(H) 27.1 - 33.3 pg [facility] MCHC 34.7 32.3 - 35.7 g/dL [facility] RDW CV 15.9(H) 11.1 - 14.9 % [facility] RDW SD 56.5(H) 35.7 - 48.1 fL [facility] NRBC abs 0.00 0.00 - 0.01 K/cumm [facility] Blood 11/05/2024 5:08 AM CDT 11/05/2024 5:31 AM CDT Juliano Arredondo MD LAB BLOOD ORDERABLE S Final Result [facility] [place] [address] * (ABNORMAL) CRP (acute phase) (11/05/2024 5:08 AM CDT) [facility] CRP 40.2(H) <=10.0 mg/L Blood 11/05/2024 5:08 AM CDT 11/05/2024 5:30 AM CDT Juliano Arredondo MD LAB BLOOD ORDERABLE S Final Result Performing Organization Address City/[facility] Co de Phone Number [facility] [place] [address] * Phosphorus (11/05/2024 5:08 AM CDT) [facility] Phosphorus, pl 3.8 2.3 - 4.5 mg/dL Blood 11/05/2024 5:08 AM CDT 11/05/2024 5:30 AM CDT Mar George MD LAB BLOOD OR DERABLES Final Result Performing Organization Address City/[facility] Co de Phone Number [facility] [place] [address] * Magnesium (11/05/2024 5:08 AM CDT) [facility] Magnesium 2.2 1.4 - 2.5 mg/dL Blood 11/05/2024 5:08 AM CDT 11/05/2024 5:30 AM CDT Mar George MD LAB BLOOD OR DERABLES Final Result Performing Organization Address City/[facility]/ZIP Co de Phone Number [facility] [place] [address] * (ABNORMAL) Hepatic function panel (11/05/2024 5:08 AM CDT) [facility] Bilirubin, total 1.4(H) 0.1 - 1.2 mg/dL Bilirubin, direct 1.0(H) 0.1 - 0.3 mg/dL [facility] Protein, pl 4.7(L) 6.5 - 8.5 g/dL [facility] Albumin 2.3(L) 3.5 - 5.0 g/dL [facility] Alk phos 295(H) 40 - 130 Units/L [facility] ALT 376(H) 7 - 45 Units/L [facility] AST 388(H) 10 - 45 Units/L [facility] Blood 11/05/2024 5:08 AM CDT 11/05/2024 5:30 AM CDT Mar George MD LAB BLOOD OR DERABLES Final Result [facility] Department [place] [address] * (ABNORMAL) Basic metabolic panel (11/05/2024 5:08 AM CDT) [facility] Sodium 136 135 - 145 mmol/L Potassium, pl 4.1 3.3 - 4.9 mmol/L [facility] Chloride 101 97 - 110 mmol/L [facility] CO2 26 22 - 32 mmol/L [facility] Anion gap 9 2 - 15 mmol/L [facility] BUN 2(L) 6 - 25 mg/dL [facility] Creatinine 0.41(L) 0.60 - 1.10 mg/dL [facility] Glucose 108 70 - 199 mg/dL [facility] Comment: Interpretive Data Fasting [...] 2022. Calcium 8.1(L) 8.5 - 10.3 mg/dL [facility] Blood 11/05/2024 5:08 AM CDT 11/05/2024 5:30 AM CDT us Mar George MD LAB BLOOD OR DERABLES Final Result [facility] [place] [address] * POCT glucose (11/05/2024 3:53 AM CDT) Glucose, POC 164 70 - 199 mg/dL Blood 11/05/2024 3:53 AM CDT 11/05/2024 3:53 AM CDT us Juliano Arredondo MD LAB POCT ORDERABLES - DEVICE Final Result Performing Organization Address City/[facility] Co de Phone Number [facility] [place] [address] * eGFR (11/04/2024 11:44 PM CDT) eGFR [...] OR DERABLES Final Result Performing Organization Address City/[facility] Co de Phone Number [facility] [place] [address] * Phosphorus (11/04/2024 11:44 PM CDT) Phosphorus, pl 3.9 2.3 - 4.5 mg/dL Blood 11/04/2024 11:4 4 PM CDT 11/05/2024 4:37 AM CDT Mar George MD LAB BLOOD OR DERABLES Final Result Performing Organization Address [facility] [place] [address] * (ABNORMAL) Magnesium (11/04/2024 11:44 PM CDT) Magnesium 3.0(H) 1.4 - 2.5 mg/dL Comment:Repeated and Verifie d Blood 11/04/2024 11:4 4 PM CDT 11/05/2024 4:37 AM CDT Mar George MD LAB BLOOD OR DERABLES Final Result Performing Organization Address [facility] Co de Phone Number [facility] [place] [address] * (ABNORMAL) Basic metabolic panel (11/04/2024 11:44 PM CDT) Sodium 136 135 - 145 mmol/L Potassium, pl See Comment 3.3 - 4.9 mmol/L [facility] Comment:Credited: Specimen t oo old Chloride 99 97 - 110 mmol/L [facility] CO2 See Comment 22 - 32 mmol/L [facility] Comment:Credited: Specimen t oo old Anion gap See Comment 2 - 15 mmol/L [facility] Comment:Credited: Specimen t oo old BUN 3(L) 6 - 25 mg/dL [facility] Creatinine 0.43(L) 0.60 - 1.10 mg/dL [facility] Glucose See Comment 70 - 199 mg/dL [facility] Comment: Credited: Specimen too [...] 2022. Calcium 8.2(L) 8.5 - 10.3 mg/dL [facility] Blood 11/04/2024 11:4 4 PM CDT 11/05/2024 4:37 AM CDT us Mar George MD LAB BLOOD OR DERABLES Edited Result - Final [facility] [place] [address] * POCT glucose (11/04/2024 11:41 PM CDT) Glucose, POC 141 70 - 199 mg/dL Blood 11/04/2024 11:4 1 PM CDT 11/04/2024 11:41 PM CDT Juliano Arredondo MD LAB POCT ORDERABLES - DEVICE Final Result [facility] [place] [address] * POCT glucose (11/04/2024 8:01 PM CDT) Glucose, POC 157 70 - 199 mg/dL Blood 11/04/2024 8:01 PM CDT 11/04/2024 8:01 PM CDT Juliano Arredondo MD LAB POCT ORDERABLES - DEVICE Final Result Performing Organization Address [facility] Co de Phone Number [facility] [place] [address] * eGFR (11/04/2024 3:43 PM CDT) eGFR [...] OR DERABLES Final Result Performing Organization Address [facility] Co de Phone Number [facility] [place] [address] * (ABNORMAL) Protime-INR (11/04/2024 3:43 PM CDT) PT 16.9(H) 9.7 - 13.0 sec INR 1.55(H) 0.90 - 1.20 [facility] Comment: Interpretive data Oral anticoagulant therapeutic ranges: Venous thromboembolism prophylaxis or treatment: 2.0-3.0 CARDIOLOGY Standard range: 2.0-3.0 High-intensity range: 2.5-3.5 Refer to indication-specific guidelines for appropriate target ranges for prosthetic heart valve replacement. Current interpretive data was last revised on 2019. Blood 11/04/2024 3:43 PM CDT 11/04/2024 4:59 PM CDT Result [facility] Juliano Arredondo MD LAB BLOOD ORDERABLE S Final Result Performing Organization Address [facility] [place] [address] * Phosphorus (11/04/2024 3:43 PM CDT) Pathologist [facility] Phosphorus, pl 3.9 2.3 - 4.5 mg/dL Blood 11/04/2024 3:43 PM CDT 11/04/2024 4:55 PM CDT Mar George MD LAB BLOOD OR DERABLES Final Result Performing Organization Address [facility] [place] [address] * (ABNORMAL) Magnesium (11/04/2024 3:43 PM CDT) Pathologist [facility] Magnesium 1.2(L) 1.4 - 2.5 mg/dL Blood 11/04/2024 3:43 PM CDT 11/04/2024 4:55 PM CDT us Mar George MD LAB BLOOD OR DERABLES Final Result [facility] [place] [address] * (ABNORMAL) Hepatic function panel (11/04/2024 3:43 PM CDT) [facility] Bilirubin, total 1.7(H) 0.1 - 1.2 mg/dL Bilirubin, direct 1.3(H) 0.1 - 0.3 mg/dL [facility] Protein, pl 4.3(L) 6.5 - 8.5 g/dL [facility] Albumin 1.7(L) 3.5 - 5.0 g/dL [facility] Alk phos 251(H) 40 - 130 Units/L [facility] ALT 459(H) 7 - 45 Units/L [facility] AST 683(H) 10 - 45 Units/L [facility] Blood 11/04/2024 3:43 PM CDT 11/04/2024 4:55 PM CDT us Juliano Arredondo MD LAB BLOOD ORDERABLE S Final Result [facility] [place] [address] * (ABNORMAL) Basic metabolic panel (11/04/2024 3:43 PM CDT) Pathologist [facility] Sodium 133(L) 135 - 145 mmol/L Potassium, pl 3.5 3.3 - 4.9 mmol/L [facility] Chloride 94(L) 97 - 110 mmol/L [facility] CO2 24 22 - 32 mmol/L [facility] Anion gap 15 2 - 15 mmol/L [facility] BUN 4(L) 6 - 25 mg/dL [facility] Creatinine 0.42(L) 0.60 - 1.10 mg/dL [facility] Glucose 107 70 - 199 mg/dL [facility] Comment: Interpretive Data Fasting [...] 2022. Calcium 7.4(L) 8.5 - 10.3 mg/dL [facility] Blood 11/04/2024 3:43 PM CDT 11/04/2024 4:55 PM CDT us Mar George MD LAB BLOOD OR DERABLES Final Result Performing Organization Address City/[facility]/ZIP Co de Phone Number [facility] [place] [address] * POCT glucose (11/04/2024 3:42 PM CDT) Glucose, POC 123 70 - 199 mg/dL Blood 11/04/2024 3:42 PM CDT 11/04/2024 3:42 PM CDT us Juliano Arredondo MD LAB POCT ORDERABLES - DEVICE Final Result Performing Organization Address [facility]/ZIP Co de Phone Number [facility] [place] [address] * POCT glucose (11/04/2024 12:45 PM CDT) Glucose, POC 108 70 - 199 mg/dL Blood 11/04/2024 12:4 5 PM CDT 11/04/2024 12:45 PM CDT Juliano Arredondo MD LAB POCT ORDERABLES - DEVICE Final Result Performing Organization Address [facility] Co de Phone Number [facility] [place] [address] * POCT glucose (11/04/2024 11:47 AM CDT) Glucose, POC 74 70 - 199 mg/dL Blood 11/04/2024 11:4 7 AM CDT 11/04/2024 11:47 AM CDT Juliano Arredondo MD LAB POCT ORDERABLES - DEVICE Final Result Performing Organization Address [facility] Co de Phone Number [facility] [place] [address] * POCT glucose (11/04/2024 8:06 AM CDT) Glucose, POC 112 70 - 199 mg/dL Blood 11/04/2024 8:06 AM CDT 11/04/2024 8:06 AM CDT Juliano Arredondo MD LAB POCT ORDERABLES - DEVICE Final Result Performing Organization Address City/[facility] [place] [address] * POCT glucose (11/04/2024 7:48 AM CDT) Glucose, POC 125 70 - 199 mg/dL Blood 11/04/2024 7:48 AM CDT 11/04/2024 7:48 AM CDT us Juliano Arredondo MD LAB POCT ORDERABLES - DEVICE Final Result [facility] [place] [address] * (ABNORMAL) POCT glucose (11/04/2024 7:04 AM CDT) Pathologist [facility] Glucose, POC 60(L) 70 - 199 mg/dL Blood 11/04/2024 7:04 AM CDT 11/04/2024 7:04 AM CDT Juliano Arredondo MD LAB POCT ORDERABLES - DEVICE Final Result Performing Organization Address [facility] Co de Phone Number [facility] [place] [address] * ECG 12 lead (11/04/2024 6:32 AM CDT) [facility] Ventricular Rate EKG/Min 97 BPM [facility] Atrial Rate 97 BPM [facility] SD-Interval (MSEC) 104 ms [facility] QRS-Interval (MSEC) 68 ms [facility] QT-Interval (MSEC) 372 ms [facility] QTc 472 ms [facility] P Virgie 39 degrees [facility] R Virgie 52 degrees [facility] T Virgie 178 degrees [facility] Diagnosis Poor data quality, interpretation may be adversely affected Sinus rhythm with short SD Nonspecific ST and T wave abnormality suggests inferolateral ischemia Abnormal ECG When compared with ECG of 03-NOV-2024 12:35, (unconfirmed) Nonspecific T wave abnormality, improved in Inferior leads Confirmed by BILLY CHACKO M.D ([id number]) on 11/06/2024 9:15:38 AM [facility] 11/04/2024 6:32 AM CDT 11/06/2024 9:15 AM CDT us Juliano Arredondo MD ECG ORDERABLES Fin al Result [facility] * eGFR (11/04/2024 6:03 AM CDT) eGFR [...] OR DERABLES Final Result Performing Organization Address City/[facility] Co de Phone Number [facility] [place] [address] * (ABNORMAL) Protime-INR (11/04/2024 6:03 AM CDT) PT 19.8(H) 9.7 - 13.0 sec INR 1.81(H) 0.90 - 1.20 [facility] Comment: Interpretive data Oral anticoagulant therapeutic ranges: Venous thromboembolism prophylaxis or treatment: 2.0-3.0 CARDIOLOGY Standard range: 2.0-3.0 High-intensity range: 2.5-3.5 Refer to indication-specific guidelines for appropriate target ranges for prosthetic heart valve replacement. Current interpretive data was last revised on 2019. Blood 11/04/2024 6:03 AM CDT 11/04/2024 6:22 AM CDT Juliano Arredondo MD LAB BLOOD ORDERABLE S Final Result Performing Organization Address [facility] Co de Phone Number [facility] [place] [address] * (ABNORMAL) CBC without differential (11/04/2024 6:03 AM CDT) WBC 5.43 3.80 - 9.90 K/cumm Hgb 9.3(L) 11.9 - 15.5 g/dL [facility] Hct 26.3(L) 35.6 - 45.5 % [facility] Plt 110(L) 150 - 400 K/cumm [facility] MPV 11.2 9.1 - 12.3 fL [facility] RBC 2.68(L) 3.90 - 5.20 M/cumm [facility] MCV 98.1(H) 81.3 - 96.4 fL [facility] MCH 34.7(H) 27.1 - 33.3 pg [facility] MCHC 35.4 32.3 - 35.7 g/dL [facility] RDW CV 15.4(H) 11.1 - 14.9 % [facility] RDW SD 54.5(H) 35.7 - 48.1 fL [facility] NRBC abs 0.00 0.00 - 0.01 K/cumm [facility] Blood 11/04/2024 6:03 AM CDT 11/04/2024 6:23 AM CDT Juliano Arredondo MD LAB BLOOD ORDERABLE S Final Result Performing Organization Address City/[facility]/ZIP Co de Phone Number [facility] [place] [address] * Phosphorus (11/04/2024 6:03 AM CDT) Phosphorus, pl 3.8 2.3 - 4.5 mg/dL Blood 11/04/2024 6:03 AM CDT 11/04/2024 6:24 AM CDT Mar George MD LAB BLOOD OR DERABLES Final Result Performing Organization Address City/[facility] Co de Phone Number [facility] [place] [address] * Magnesium (11/04/2024 6:03 AM CDT) Pathologist [facility] Magnesium 1.8 1.4 - 2.5 mg/dL Blood 11/04/2024 6:03 AM CDT 11/04/2024 6:24 AM CDT Mar George MD LAB BLOOD OR DERABLES Final Result Performing Organization Address [facility] de Phone Number [facility] [place] [address] * Acetaminophen level (11/04/2024 6:03 AM CDT) Pathologist [facility] Acetaminophen 5 <=5 mcg/mL Comment: Interpretive Data Significant hepatic injury may occur and treatment with n-acetyl cysteine is generally recommended if the acetaminophen level exceeds: 150 mcg/mL at 4 hours after ingestion 75 mcg/mL at 8 hours after ingestion 38 mcg/mL at 12 hours after ingestion 19 mcg/mL at 16 hours after ingestion Consult toxicology or poison control ([phone]) for unknown ingestion time. Current interpretive data was last revised 2023. Blood 11/04/2024 6:03 AM CDT 11/04/2024 6:24 AM CDT Juliano Arredondo MD LAB BLOOD ORDERABLE S Final Result Performing Organization Address City/[facility] Co de Phone Number [facility] [place] [address] * (ABNORMAL) Hepatic function panel (11/04/2024 6:03 AM CDT) Pathologist [facility] Bilirubin, total 1.9(H) 0.1 - 1.2 mg/dL Bilirubin, direct 1.5(H) 0.1 - 0.3 mg/dL [facility] Protein, pl 4.3(L) 6.5 - 8.5 g/dL [facility] Albumin 1.8(L) 3.5 - 5.0 g/dL [facility] Alk phos 250(H) 40 - 130 Units/L [facility] ALT 562(H) 7 - 45 Units/L [facility] AST 1,170(H) 10 - 45 Units/L [facility] Blood 11/04/2024 6:03 AM CDT 11/04/2024 6:24 AM CDT Mar George MD LAB BLOOD OR DERABLES Final Result [facility] [place] [address] * (ABNORMAL) Basic metabolic panel (11/04/2024 6:03 AM CDT) Pathologist [facility] Sodium 136 135 - 145 mmol/L Potassium, pl 4.4 3.3 - 4.9 mmol/L [facility] Chloride 99 97 - 110 mmol/L [facility] CO2 25 22 - 32 mmol/L [facility] Anion gap 12 2 - 15 mmol/L [facility] BUN 4(L) 6 - 25 mg/dL [facility] Creatinine 0.40(L) 0.60 - 1.10 mg/dL [facility] Glucose 59(L) 70 - 199 mg/dL [facility] Comment: Interpretive Data Fasting [...] 2022. Calcium 7.7(L) 8.5 - 10.3 mg/dL [facility] Blood 11/04/2024 6:03 AM CDT 11/04/2024 6:24 AM CDT us Mar George MD LAB BLOOD OR DERABLES Final Result [facility] [place] [address] * POCT glucose (11/04/2024 12:23 AM CDT) Pathologist [facility] Glucose, POC 102 70 - 199 mg/dL Blood 11/04/2024 12:2 3 AM CDT 11/04/2024 12:23 AM CDT us Juliano Arredondo MD LAB POCT ORDERABLES - DEVICE Final Result [facility] [place] [address] * eGFR (11/04/2024 12:02 AM CDT) Pathologist [facility] eGFR >90 >=60 mL/min/1. 73 m2 Comment: [...] OR DERABLES Final Result Performing Organization Address City/[facility] Co de Phone Number [facility] [place] [address] * Phosphorus (11/04/2024 12:02 AM CDT) Phosphorus, pl 3.8 2.3 - 4.5 mg/dL Blood 11/04/2024 12:0 2 AM CDT 11/04/2024 12:34 AM CDT Mar George MD LAB BLOOD OR DERABLES Final Result Performing Organization Address [facility] Co de Phone Number [facility] [place] [address] * Magnesium (11/04/2024 12:02 AM CDT) Magnesium 2.3 1.4 - 2.5 mg/dL Blood 11/04/2024 12:0 2 AM CDT 11/04/2024 12:34 AM CDT Mar George MD LAB BLOOD OR DERABLES Final Result Performing Organization Address City/[facility] Co de Phone Number [facility] Department [place] [address] * (ABNORMAL) Basic metabolic panel (11/04/2024 12:02 AM CDT) [facility] Signature Sodium 139 135 - 145 mmol/L Potassium, pl 3.7 3.3 - 4.9 mmol/L [facility] Chloride 102 97 - 110 mmol/L [facility] CO2 27 22 - 32 mmol/L [facility] Anion gap 10 2 - 15 mmol/L [facility] BUN 5(L) 6 - 25 mg/dL [facility] Creatinine 0.41(L) 0.60 - 1.10 mg/dL [facility] Glucose 84 70 - 199 mg/dL [facility] Comment: Interpretive Data Fasting [...] 2022. Calcium 7.8(L) 8.5 - 10.3 mg/dL [facility] Blood 11/04/2024 12:0 2 AM CDT 11/04/2024 12:34 AM CDT us Mar George MD LAB BLOOD OR DERABLES Final Result [facility] [place] [address] * US Abdomen Complete W Liver Doppler [...] - DEVICE Final Result Performing Organization Address City/[facility] Co de Phone Number [facility] [place] [address] * eGFR (11/03/2024 4:10 PM CDT) eGFR [...] OR DERABLES Final Result Performing Organization Address City/[facility]/ZIP Co de Phone Number [facility] [place] [address] * Phosphorus (11/03/2024 4:10 PM CDT) Pathologist [facility] Phosphorus, pl 3.2 2.3 - 4.5 mg/dL Blood 11/03/2024 4:10 PM CDT 11/03/2024 4:18 PM CDT Mar George MD LAB BLOOD OR DERABLES Final Result Performing Organization Address City/[facility] Co de Phone Number [facility] [place] [address] * Magnesium (11/03/2024 4:10 PM CDT) Pathologist [facility] Magnesium 1.7 1.4 - 2.5 mg/dL Blood 11/03/2024 4:10 PM CDT 11/03/2024 4:18 PM CDT Mar George MD LAB BLOOD OR DERABLES Final Result Performing Organization Address [facility] de Phone Number [facility] [place] [address] * (ABNORMAL) Basic metabolic panel (11/03/2024 4:10 PM CDT) Pathologist [facility] Sodium 137 135 - 145 mmol/L Potassium, pl 4.6 3.3 - 4.9 mmol/L [facility] Chloride 102 97 - 110 mmol/L [facility] CO2 28 22 - 32 mmol/L [facility] Anion gap 7 2 - 15 mmol/L [facility] BUN 8 6 - 25 mg/dL [facility] Creatinine 0.53(L) 0.60 - 1.10 mg/dL [facility] Glucose 98 70 - 199 mg/dL [facility] Comment: Interpretive Data Fasting [...] 2022. Calcium 7.6(L) 8.5 - 10.3 mg/dL [facility] Blood 11/03/2024 4:10 PM CDT 11/03/2024 4:18 PM CDT Result [facility] Mar George MD LAB BLOOD OR DERABLES Final Result Performing Organization Address [facility] de Phone Number [facility] [place] [address] * KATEY ab ql w/rflx to KATEY [...] OR DERABLES Final Result Performing Organization Address [facility] de Phone Number [facility] [place] [address] * Smooth muscle antibody, qualitative (11/03/2024 2:31 PM CDT) Anti-smooth muscle Negative Negative Blood 11/03/2024 2:31 PM CDT 11/03/2024 2:39 PM CDT Mar George MD LAB BLOOD OR DERABLES Final Result Performing Organization Address [facility] Co de Phone Number [facility] [place] [address] * Mitochondrial antibodies, qualitative (11/03/2024 2:31 PM CDT) Pathologist [facility] Anti-mitochond rial Negative Negative Blood 11/03/2024 2:31 PM CDT 11/03/2024 2:38 PM CDT Mar George MD LAB BLOOD OR DERABLES Final Result Performing Organization Address [facility] de Phone Number [facility] [place] [address] * Hepatitis panel, acute Blood (11/03/2024 2:31 PM CDT) Pathologist [facility] Hep A IgM Nonreactive Nonreactive Hep B core IgM Nonreactive Nonreactive [facility] Hep C Ab Nonreactive Nonreactive [facility] Comment:Antibodies to HCV no t detected. Does NOT exclude the possibility of recent exposure to HCV. Current interpretive data was last revised on 22 HepBsAg Nonreactive Nonreactive [facility] Blood 11/03/2024 2:31 PM CDT 11/03/2024 2:38 PM CDT Mar George MD LAB MICROBIOLOGY - GENERAL ORDERABLES Final Result Performing Organization Address [facility] Co de Phone Number [facility] [place] [address] * (ABNORMAL) Protime-INR (11/03/2024 2:31 PM CDT) PT 17.4(H) 9.7 - 13.0 sec INR 1.60(H) 0.90 - 1.20 [facility] Comment: Interpretive data Oral [...] OR DERABLES Final Result Performing Organization Address City/[facility] Co de Phone Number [facility] [place] [address] * (ABNORMAL) Hepatic function panel (11/03/2024 2:31 PM CDT) Bilirubin, total 1.9(H) 0.1 - 1.2 mg/dL Bilirubin, direct 1.4(H) 0.1 - 0.3 mg/dL [facility] Protein, pl 4.2(L) 6.5 - 8.5 g/dL [facility] Albumin 1.9(L) 3.5 - 5.0 g/dL [facility] Alk phos 233(H) 40 - 130 Units/L [facility] ALT 730(H) 7 - 45 Units/L [facility] AST 2,285(H) 10 - 45 Units/L [facility] Blood 11/03/2024 2:31 PM CDT 11/03/2024 2:38 PM CDT Mar George MD LAB BLOOD OR DERABLES Final Result Performing Organization Address City/[facility]/ZIP Co de Phone Number [facility] [place] [address] * ECG 12 lead (11/03/2024 12:35 PM CDT) Ventricular Rate EKG/Min 94 BPM [facility] Atrial Rate 94 BPM [facility] SD-Interval (MSEC) 110 ms [facility] QRS-Interval (MSEC) 68 ms [facility] QT-Interval (MSEC) 378 ms [facility] QTc 472 ms [facility] P Virgie 42 degrees [facility] R Virgie 59 degrees [facility] T Virgie -37 degrees [facility] Diagnosis Sinus rhythm with short SD T wave abnormality, consider lateral ischemia Prolonged QT Abnormal ECG When compared with ECG of 02-NOV-2024 06:38, Inverted T waves have replaced nonspecific T wave abnormality in Lateral leads Confirmed by SHALINI RODRIGUEZ M.D ([id number]) on 11/05/2024 10:36:23 PM [facility] 11/03/2024 12:3 5 PM CDT 11/05/2024 10:36 PM CDT Juliano Arredondo MD ECG ORDERABLES Fin al Result [facility] * eGFR (11/03/2024 8:33 AM CDT) eGFR [...] OR DERABLES Final Result Performing Organization Address City/[facility]/ZIP Co de Phone Number [facility] [place] [address] * (ABNORMAL) Iron profile w/ IBC (11/03/2024 8:33 AM CDT) [facility] Iron 69 35 - 145 mcg/dL TIBC 101(L) 250 - 400 mcg/dL [facility] Transferrin saturation 68(H) 20 - 50 % [facility] Blood 11/03/2024 8:33 AM CDT 11/03/2024 9:20 AM CDT Mar George MD LAB BLOOD OR DERABLES Final Result Performing Organization Address [facility] Co de Phone Number [facility] [place] [address] * (ABNORMAL) CBC without differential (11/03/2024 8:33 AM CDT) [facility] WBC 4.86 3.80 - 9.90 K/cumm Hgb 9.5(L) 11.9 - 15.5 g/dL [facility] Hct 27.5(L) 35.6 - 45.5 % [facility] Plt 87(L) 150 - 400 K/cumm [facility] MPV 12.2 9.1 - 12.3 fL [facility] RBC 2.77(L) 3.90 - 5.20 M/cumm [facility] MCV 99.3(H) 81.3 - 96.4 fL [facility] MCH 34.3(H) 27.1 - 33.3 pg [facility] MCHC 34.5 32.3 - 35.7 g/dL [facility] RDW CV 15.2(H) 11.1 - 14.9 % [facility] RDW SD 55.1(H) 35.7 - 48.1 fL [facility] NRBC abs 0.00 0.00 - 0.01 K/cumm [facility] Blood 11/03/2024 8:33 AM CDT 11/03/2024 9:19 AM CDT Mar George MD LAB BLOOD OR DERABLES Final Result [facility] [place] [address] * Phosphorus (11/03/2024 8:33 AM CDT) Phosphorus, pl 2.7 2.3 - 4.5 mg/dL Blood 11/03/2024 8:33 AM CDT 11/03/2024 9:20 AM CDT Mar George MD LAB BLOOD OR DERABLES Final Result Performing Organization Address [facility] Co de Phone Number [facility] [place] [address] * Magnesium (11/03/2024 8:33 AM CDT) Magnesium 2.3 1.4 - 2.5 mg/dL Blood 11/03/2024 8:33 AM CDT 11/03/2024 9:20 AM CDT Mar George MD LAB BLOOD OR DERABLES Final Result Performing Organization Address City/[facility] Co de Phone Number [facility] [place] [address] * (ABNORMAL) Ferritin (11/03/2024 8:33 AM CDT) Ferritin 7,953(H) 13 - 150 ng/mL Blood 11/03/2024 8:33 AM CDT 11/03/2024 9:20 AM CDT Mar George MD LAB BLOOD OR DERABLES Final Result Performing Organization Address [facility] Co de Phone Number [facility] [place] [address] * Creatine kinase (CK), total (11/03/2024 8:33 AM CDT) CK 72 30 - 200 Units/L Blood 11/03/2024 8:33 AM CDT 11/03/2024 9:20 AM CDT Mar George MD LAB BLOOD OR DERABLES Final Result Performing Organization Address [facility] de Phone Number [facility] [place] [address] * (ABNORMAL) Acetaminophen level (11/03/2024 8:33 AM [...] after ingestion Consult toxicology or poison control ([phone]) for unknown ingestion time. Current interpretive data was last revised 2023. Blood 11/03/2024 8:33 AM CDT 11/03/2024 9:20 AM CDT Mar George MD LAB BLOOD OR DERABLES Final Result Performing Organization Address [facility] [place] [address] * (ABNORMAL) Hepatic function panel (11/03/2024 8:33 AM CDT) Pathologist [facility] Bilirubin, total 1.6(H) 0.1 - 1.2 mg/dL Bilirubin, direct 1.2(H) 0.1 - 0.3 mg/dL [facility] Comment:Reviewed Protein, pl 4.1(L) 6.5 - 8.5 g/dL [facility] Albumin 1.9(L) 3.5 - 5.0 g/dL [facility] Alk phos 207(H) 40 - 130 Units/L [facility] ALT 730(H) 7 - 45 Units/L [facility] Comment:Repeated on Dilution AST 2,754(H) 10 - 45 Units/L [facility] Comment:Repeated on Dilution Blood 11/03/2024 8:33 AM CDT 11/03/2024 9:20 AM CDT Mar George MD LAB BLOOD OR DERABLES Final Result [facility] [place] [address] * (ABNORMAL) Basic metabolic panel (11/03/2024 8:33 AM CDT) [facility] Sodium 136 135 - 145 mmol/L Potassium, pl 4.4 3.3 - 4.9 mmol/L [facility] Chloride 100 97 - 110 mmol/L [facility] CO2 28 22 - 32 mmol/L [facility] Anion gap 8 2 - 15 mmol/L [facility] BUN 8 6 - 25 mg/dL [facility] Creatinine 0.57(L) 0.60 - 1.10 mg/dL [facility] Glucose 97 70 - 199 mg/dL [facility] Comment: Interpretive Data Fasting [...] LAB BLOOD OR DERABLES Final Result [facility] [place] [address] * eGFR (11/03/2024 12:15 AM CDT) eGFR [...] MD LAB BLOOD OR DERABLES Final Result [facility] [place] [address] * Phosphorus (11/03/2024 12:15 AM CDT) [facility] Phosphorus, pl 2.9 2.3 - 4.5 mg/dL Blood 11/03/2024 12:1 5 AM CDT 11/03/2024 1:51 AM CDT Mar George MD LAB BLOOD OR DERABLES Final Result Performing Organization Address [facility] Co de Phone Number [facility] [place] [address] * Magnesium (11/03/2024 12:15 AM CDT) [facility] Magnesium 1.9 1.4 - 2.5 mg/dL Blood 11/03/2024 12:1 5 AM CDT 11/03/2024 1:51 AM CDT Mar George MD LAB BLOOD OR DERABLES Final Result Performing Organization Address [facility] de Phone Number [facility] [place] [address] * (ABNORMAL) Basic metabolic panel (11/03/2024 12:15 AM CDT) [facility] Sodium 136 135 - 145 mmol/L Potassium, pl 3.9 3.3 - 4.9 mmol/L [facility] Chloride 98 97 - 110 mmol/L [facility] CO2 29 22 - 32 mmol/L [facility] Anion gap 9 2 - 15 mmol/L [facility] BUN 8 6 - 25 mg/dL [facility] Creatinine 0.52(L) 0.60 - 1.10 mg/dL [facility] Glucose 89 70 - 199 mg/dL [facility] Comment: Interpretive Data Fasting [...] Calcium 7.6(L) 8.5 - 10.3 mg/dL [facility] Blood 11/03/2024 12:1 5 AM CDT 11/03/2024 1:51 AM CDT Mar George MD LAB BLOOD OR DERABLES Final Result [facility] Department [place] [address] * eGFR (11/02/2024 4:06 PM CDT) eGFR [...] OR DERABLES Final Result Performing Organization Address City/[facility] Co de Phone Number [facility] [place] [address] * Phosphorus (11/02/2024 4:06 PM CDT) [facility] Phosphorus, pl 2.7 2.3 - 4.5 mg/dL Blood 11/02/2024 4:06 PM CDT 11/02/2024 4:29 PM CDT Mar George MD LAB BLOOD OR DERABLES Final Result Performing Organization Address [facility] de Phone Number [facility] [place] [address] * Magnesium (11/02/2024 4:06 PM CDT) [facility] Magnesium 1.6 1.4 - 2.5 mg/dL Blood 11/02/2024 4:06 PM CDT 11/02/2024 4:29 PM CDT Result [facility] Mar George MD LAB BLOOD OR DERABLES Final Result Performing Organization Address [facility] Co de Phone Number [facility] [address] * (ABNORMAL) Basic metabolic panel (11/02/2024 4:06 PM CDT) [facility] Sodium 137 135 - 145 mmol/L Potassium, pl 4.1 3.3 - 4.9 mmol/L [facility] Comment:Repeated and Verifie d Chloride 100 97 - 110 mmol/L [facility] CO2 29 22 - 32 mmol/L [facility] Anion gap 8 2 - 15 mmol/L [facility] BUN 9 6 - 25 mg/dL [facility] Creatinine 0.56(L) 0.60 - 1.10 mg/dL [facility] Glucose 118 70 - 199 mg/dL [facility] Comment: Interpretive Data Fasting [...] 2022. Calcium 7.5(L) 8.5 - 10.3 mg/dL [facility] Blood 11/02/2024 4:06 PM CDT 11/02/2024 4:29 PM CDT Mar George MD LAB BLOOD OR DERABLES Final Result [facility] [place] [address] * eGFR (11/02/2024 7:53 AM CDT) eGFR [...] MD LAB BLOOD OR DERABLES Final Result [facility] [place] [address] * (ABNORMAL) CBC without differential (11/02/2024 7:53 AM CDT) WBC 3.44(L) 3.80 - 9.90 K/cumm Hgb 10.0(L) 11.9 - 15.5 g/dL [facility] Hct 29.2(L) 35.6 - 45.5 % [facility] Plt 120(L) 150 - 400 K/cumm [facility] MPV 11.9 9.1 - 12.3 fL [facility] RBC 2.88(L) 3.90 - 5.20 M/cumm [facility] MCV 101.4(H) 81.3 - 96.4 fL [facility] MCH 34.7(H) 27.1 - 33.3 pg [facility] MCHC 34.2 32.3 - 35.7 g/dL [facility] RDW CV 15.0(H) 11.1 - 14.9 % [facility] RDW SD 54.9(H) 35.7 - 48.1 fL [facility] NRBC abs 0.00 0.00 - 0.01 K/cumm [facility] Blood 11/02/2024 7:53 AM CDT 11/02/2024 8:07 AM CDT us Mar George MD LAB BLOOD OR DERABLES Final Result [facility] [place] [address] * Phosphorus (11/02/2024 7:53 AM CDT) [facility] Phosphorus, pl 2.7 2.3 - 4.5 mg/dL Comment:Hemolyzed; result ma y be falsely elevated Blood 11/02/2024 7:53 AM CDT 11/02/2024 8:07 AM CDT Mar George MD LAB BLOOD OR DERABLES Final Result [facility] [place] [address] * Magnesium (11/02/2024 7:53 AM CDT) [facility] Magnesium 2.1 1.4 - 2.5 mg/dL Blood 11/02/2024 7:53 AM CDT 11/02/2024 8:07 AM CDT Mar George MD LAB BLOOD OR DERABLES Final Result [facility] [place] [address] * (ABNORMAL) Hepatic function panel (11/02/2024 7:53 AM CDT) [facility] Bilirubin, total 0.9 0.1 - 1.2 mg/dL Bilirubin, direct See Comment 0.1 - 0.3 mg/dL [facility] Comment: Credited; Hemolyzed Specimen Reviewed Protein, pl 4.9(L) 6.5 - 8.5 g/dL [facility] Albumin 2.1(L) 3.5 - 5.0 g/dL [facility] Alk phos 137(H) 40 - 130 Units/L [facility] Comment:Hemolyzed; result ma y be falsely decreased ALT See Comment 7 - 45 Units/L [facility] Comment: Credited; Hemolyzed Specimen Reviewed AST See Comment 10 - 45 Units/L [facility] Comment: Credited; Hemolyzed Specimen Reviewed Blood 11/02/2024 7:53 AM CDT 11/02/2024 8:07 AM CDT Mar George MD LAB BLOOD OR DERABLES Final Result [facility] [place] [address] * (ABNORMAL) Basic metabolic panel (11/02/2024 7:53 AM CDT) Sodium 133(L) 135 - 145 mmol/L Potassium, pl See Comment 3.3 - 4.9 mmol/L [facility] Comment: Credited; Hemolyzed Specimen Repeated and Verified Chloride 100 97 - 110 mmol/L [facility] CO2 28 22 - 32 mmol/L [facility] Anion gap 5 2 - 15 mmol/L [facility] BUN 10 6 - 25 mg/dL [facility] Creatinine 0.62 0.60 - 1.10 mg/dL [facility] Glucose 105 70 - 199 mg/dL [facility] Comment: Interpretive Data Fasting [...] 2022. Calcium 8.2(L) 8.5 - 10.3 mg/dL [facility] [facility] Blood 11/02/2024 7:53 AM CDT 11/02/2024 8:07 AM CDT Mar George MD LAB BLOOD OR DERABLES Final Result [facility] [place] [address] * ECG 12 lead (11/02/2024 6:38 AM CDT) Ventricular Rate EKG/Min 78 BPM [facility] Atrial Rate 78 BPM [facility] SD-Interval (MSEC) 122 ms [facility] QRS-Interval (MSEC) 66 ms [facility] QT-Interval (MSEC) 412 ms [facility] QTc 469 ms [facility] P Virgie 47 degrees [facility] R Virgie 41 degrees [facility] T Virgie 33 degrees [facility] Diagnosis Normal sinus rhythm Low voltage: consider pericardial effusions, pulmonary disease, pleural effusion, obesity or infiltrative or dilated cardiomyop Nonspecific T wave abnormality Abnormal ECG When compared with ECG of 01-NOV-2024 06:33, (unconfirmed) No significant change was found Confirmed by BILLY CHACKO M.D ([id number]) on 11/02/2024 1:01:09 PM [facility] 11/02/2024 6:38 AM CDT 11/02/2024 1:01 PM CDT us Juliano Arredondo MD ECG ORDERABLES Fin al Result Performing Organization Address City/[facility]/ZIP Co de Phone Number [facility] * eGFR (11/01/2024 11:50 PM CDT) eGFR [...] MD LAB BLOOD OR DERABLES Final Result [facility] [place] [address] * Phosphorus (11/01/2024 11:50 PM CDT) Phosphorus, pl 2.4 2.3 - 4.5 mg/dL Blood 11/01/2024 11:5 0 PM CDT 11/02/2024 1:50 AM CDT Mar George MD LAB BLOOD OR DERABLES Final Result Performing Organization Address City/[facility] Co de Phone Number [facility] [place] [address] * (ABNORMAL) Magnesium (11/01/2024 11:50 PM CDT) Magnesium 3.2(H) 1.4 - 2.5 mg/dL Comment:Reviewed Blood 11/01/2024 11:5 0 PM CDT 11/02/2024 1:50 AM CDT Mar George MD LAB BLOOD OR DERABLES Final Result [facility] [place] [address] * (ABNORMAL) Basic metabolic panel (11/01/2024 11:50 PM CDT) Pathologist [facility] Sodium 136 135 - 145 mmol/L Potassium, pl 3.5 3.3 - 4.9 mmol/L [facility] Chloride 99 97 - 110 mmol/L [facility] CO2 28 22 - 32 mmol/L [facility] Anion gap 9 2 - 15 mmol/L [facility] BUN 11 6 - 25 mg/dL [facility] Creatinine 0.69 0.60 - 1.10 mg/dL [facility] Glucose 86 70 - 199 mg/dL [facility] Comment: Interpretive Data Fasting [...] 2022. Calcium 7.7(L) 8.5 - 10.3 mg/dL [facility] Blood 11/01/2024 11:5 0 PM CDT 11/02/2024 1:50 AM CDT Mar George MD LAB BLOOD OR DERABLES Final Result [facility] [place] [address] * (ABNORMAL) Copper, serum (11/01/2024 8:27 PM CDT) Pathologist [facility] Copper 64(L) 77 - 206 mcg/dL [facility] Comment: ADDITIONAL INFORMATION This test was developed and its performance characteristics determined by [facility] in a manner consistent with CLIA requirements. This test has not been cleared or approved by the U.S. Food and Drug Administration. Test Performed by: [facility] - [facility] [address] [place] [address] Hospital Carrier: Kimberley Hurtado Ph.D.; CLIA# [id number] Blood 11/01/2024 8:27 PM CDT 11/01/2024 10:06 PM CDT Narrative [facility] - 11/05/2024 11:58 AM CDT sent 2.0 mls metal free serum us Evonne Baer MD LAB BLOOD ORDERABLES Krystyna meyers Result [facility] [place] [address] [facility] * (ABNORMAL) CBC without differential (11/01/2024 8:27 PM CDT) WBC 3.66(L) 3.80 - 9.90 K/cumm Hgb 9.3(L) 11.9 - 15.5 g/dL [facility] Hct 27.1(L) 35.6 - 45.5 % [facility] Plt 83(L) 150 - 400 K/cumm [facility] MPV 11.7 9.1 - 12.3 fL [facility] RBC 2.69(L) 3.90 - 5.20 M/cumm [facility] MCV 100.7(H) 81.3 - 96.4 fL [facility] MCH 34.6(H) 27.1 - 33.3 pg [facility] MCHC 34.3 32.3 - 35.7 g/dL [facility] RDW CV 15.1(H) 11.1 - 14.9 % [facility] RDW SD 55.7(H) 35.7 - 48.1 fL [facility] NRBC abs 0.00 0.00 - 0.01 K/cumm [facility] Blood 11/01/2024 8:27 PM CDT 11/01/2024 9:48 PM CDT Mar George MD LAB BLOOD OR DERABLES Final Result [facility] [place] [address] * Immature platelet fraction (11/01/2024 5:28 PM CDT) Pathologist [facility] IPF 6.6 1.6 - 10.1 % Blood 11/01/2024 5:28 PM CDT 11/01/2024 6:47 PM CDT Mar George MD LAB BLOOD OR DERABLES Final Result Performing Organization Address [facility] de Phone Number [facility] Department [place] [address] * eGFR (11/01/2024 5:28 PM CDT) [facility] eGFR >90 >=60 mL/min/1. 73 [...] MD LAB BLOOD OR DERABLES Final Result [facility] [place] [address] * (ABNORMAL) Differential, auto (11/01/2024 5:28 PM CDT) Neutrophil abs 1.02(L) 1.50 - 6.50 K/cumm Imm gran abs 0.01 0.00 - 0.10 K/cumm [facility] Lymphocyte abs 0.87 0.80 - 3.30 K/cumm [facility] Monocyte abs 0.03(L) 0.20 - 0.80 K/cumm [facility] Eosinophil abs 0.01 0.00 - 0.50 K/cumm [facility] Basophil abs 0.01 0.00 - 0.10 K/cumm [facility] Neutrophil pct 52.4 % [facility] Comment: Interpretive Data Percent cell count reference ranges are not reported, since discordance with absolute values may lead to misinterpretation of CBC data. Current Interpretive Data was last revised on 2017. Imm gran pct 0.5 % [facility] Comment: Interpretive Data Percent cell count reference ranges are not reported, since discordance with absolute values may lead to misinterpretation of CBC data. Current Interpretive Data was last revised on 2017. Lymphocyte pct 44.6 % [facility] Comment: Interpretive Data Percent cell count reference ranges are not reported, since discordance with absolute values may lead to misinterpretation of CBC data. Current Interpretive Data was last revised on 2017. Monocyte pct 1.5 % [facility] Comment: Interpretive Data Percent cell count reference ranges are not reported, since discordance with absolute values may lead to misinterpretation of CBC data. Current Interpretive Data was last revised on 2017. Eosinophil pct 0.5 % [facility] Comment: Interpretive Data Percent cell count reference ranges are not reported, since discordance with absolute values may lead to misinterpretation of CBC data. Current Interpretive Data was last revised on 2017. Basophil pct 0.5 % [facility] Comment: Interpretive Data Percent cell count reference ranges are not reported, since discordance with absolute values may lead to misinterpretation of CBC data. Current Interpretive Data was last revised on 2017. Blood 11/01/2024 5:28 PM CDT 11/01/2024 6:44 PM CDT Mar George MD LAB BLOOD OR DERABLES Final Result [facility] [place] [address] * (ABNORMAL) CBC with auto differential (11/01/2024 5:28 PM CDT) WBC 1.98(L) 3.80 - 9.90 K/cumm Hgb 9.8(L) 11.9 - 15.5 g/dL [facility] Hct 28.5(L) 35.6 - 45.5 % [facility] Plt 21(C) 150 - 400 K/cumm [facility] Comment:No clot detected in sample. Platelet count confirmed by additional testing. Critical platelet count threshold determined by patient location: Outpatient:<50 K/cumm , Inpatient adults:<20 K/cumm , Inpatient pediatric:<25 K/cumm, BMT service:<10 K/cumm MPV 12.2 9.1 - 12.3 fL [facility] RBC 2.81(L) 3.90 - 5.20 M/cumm [facility] MCV 101.4(H) 81.3 - 96.4 fL [facility] MCH 34.9(H) 27.1 - 33.3 pg [facility] MCHC 34.4 32.3 - 35.7 g/dL [facility] RDW CV 15.0(H) 11.1 - 14.9 % [facility] RDW SD 56.0(H) 35.7 - 48.1 fL [facility] NRBC abs 0.00 0.00 - 0.01 K/cumm [facility] Blood 11/01/2024 5:28 PM CDT 11/01/2024 6:44 PM CDT Mar George MD LAB BLOOD OR DERABLES Final Result Performing Organization Address [facility] Co de Phone Number [facility] [place] [address] * Phosphorus (11/01/2024 5:28 PM CDT) [facility] Phosphorus, pl 3.0 2.3 - 4.5 mg/dL Blood 11/01/2024 5:28 PM CDT 11/01/2024 6:43 PM CDT Mar George MD LAB BLOOD OR DERABLES Final Result Performing Organization Address [facility] Co de Phone Number [facility] [place] [address] * Magnesium (11/01/2024 5:28 PM CDT) [facility] Magnesium 1.5 1.4 - 2.5 mg/dL Blood 11/01/2024 5:28 PM CDT 11/01/2024 6:43 PM CDT Mar George MD LAB BLOOD OR DERABLES Final Result Performing Organization Address [facility] [place] [address] * (ABNORMAL) Basic metabolic panel (11/01/2024 5:28 PM CDT) [facility] Sodium 140 135 - 145 mmol/L Potassium, pl 3.7 3.3 - 4.9 mmol/L [facility] Chloride 102 97 - 110 mmol/L [facility] CO2 29 22 - 32 mmol/L [facility] Anion gap 9 2 - 15 mmol/L [facility] BUN 11 6 - 25 mg/dL [facility] Creatinine 0.78 0.60 - 1.10 mg/dL [facility] Glucose 85 70 - 199 mg/dL [facility] Comment: Interpretive Data Fasting [...] 2022. Calcium 7.6(L) 8.5 - 10.3 mg/dL [facility] Blood 11/01/2024 5:28 PM CDT 11/01/2024 6:43 PM CDT us Mar George MD LAB BLOOD OR DERABLES Final Result [facility] [place] [address] * CT Chest W Contrast (11/01/2024 2:24 [...] by: Rebeca Walker M.D. Mar George MD [facility] PROCE DURES Final Result * C. difficile testing Stool (11/01/2024 11:33 AM CDT) [facility] Result Negative Negative Toxin Result Negative Negative [facility] C. diff result Negative, free toxin Negative, free toxin [facility] C. diff interp Negative for toxigenic Clostridioides (Clostridium) difficile. Analysis was performed using a glutamate dehydrogenase antigen detection assay combined with a C. difficile toxin detection assay. [facility] Stool 11/01/2024 11:3 3 AM CDT 11/01/2024 1:15 PM CDT Mar George MD LAB MICROBIOLOGY - GENERAL ORDERABLES Final Result Performing Organization Address [facility] Co de Phone Number [facility] [place] [address] * (ABNORMAL) Infection Prevention VRE Culture Stool (11/01/2024 11:33 AM CDT) Report Final Report: Enterococcus species, vancomycin resistant (.) Organism ENTEROCOCCUS SPECIES, VANCOMYCIN RESISTANT [facility] Stool 11/01/2024 11:3 3 AM CDT 11/01/2024 2:56 PM CDT Narrative [facility] - 11/03/2024 10:12 PM CDT Surveillance culture for Infection Prevention purposes only; results indicate colonization, not infection requiring treatment. Testing performed by [facility] Microbiology [facility] ([phone]). Mar George MD LAB MICROBIOLOGY - GENERAL ORDERABLES Final Result Performing Organization Address [facility] de Phone Number [facility] Department [place] [address] * TRANSTHORACIC ECHO (TTE) COMPLETE W DOPPLER/CF W CONTRAST (11/01/2024 10:52 AM CDT) Anatomical Region Laterality Modality Ultrasound 11/01/2024 10:0 2 AM CDT Narrative 11/01/2024 12:28 PM CDT [facility] [place] [address] Transthoracic Echocardiographic Report ADDENDUM Patient Name: HAYLEY LEÓN L : 1990 (34y 8m) Gender: F Study Date: 11/01/2024 10:02:50 AM Ht(Inch): 61 Wt(Lb): 87.96 BSA: 1.31 [employer] Pit Worker: Sofia Campos RDCS Location: [id number] Order Provider: ANGELA RAMIREZ Heart Rate: 90 [...] Procedure Note Gustabo Mcdaniels MD - 11/01/2024 [facility] Cardiac [place] [address] Transthoracic Echocardiographic Report ADDENDUM Patient Name: ROWAN Mira HARDY : 1990 (34y 8m) Gender: F Study Date: 11/01/2024 10:02:50 AM Ht(Inch): 61 Wt(Lb): 87.96 BSA: 1.31 [employer] Worker: Sofiaemilio Campos [facility] Location: [id number] Order Provider:ANGELA RAMIREZ Heart Rate: 90 BMI: [...] LA Length 4C 3.24 cm MV Decel Yfum911.60 msec [ 104.00 - 258.00 ] LA [...] MD LAB BLOOD OR DERABLES Final Result [facility] [place] [address] * Phosphorus (11/01/2024 9:03 AM CDT) Phosphorus, pl 3.3 2.3 - 4.5 mg/dL Blood 11/01/2024 9:03 AM CDT 11/01/2024 10:23 AM CDT us Mar George MD LAB BLOOD OR DERABLES Final Result Performing Organization Address City/[facility]/ZIP Co de Phone Number [facility] Department [place] [address] * Magnesium (11/01/2024 9:03 AM CDT) [facility] Magnesium 2.0 1.4 - 2.5 mg/dL Blood 11/01/2024 9:03 AM CDT 11/01/2024 10:23 AM CDT us Mar George MD LAB BLOOD OR DERABLES Final Result Performing Organization Address [facility] Co de Phone Number [facility] [place] [address] * (ABNORMAL) Hepatic function panel (11/01/2024 9:03 AM CDT) [facility] Bilirubin, total 1.2 0.1 - 1.2 mg/dL Bilirubin, direct 0.7(H) 0.1 - 0.3 mg/dL [facility] Protein, pl 5.4(L) 6.5 - 8.5 g/dL [facility] Albumin 2.7(L) 3.5 - 5.0 g/dL [facility] Alk phos 133(H) 40 - 130 Units/L [facility] ALT 107(H) 7 - 45 Units/L [facility] AST 308(H) 10 - 45 Units/L [facility] Blood 11/01/2024 9:03 AM CDT 11/01/2024 10:23 AM CDT Mar George MD LAB BLOOD OR DERABLES Final Result Performing Organization Address City/[facility] Co de Phone Number [facility] [place] [address] * (ABNORMAL) Basic metabolic panel (11/01/2024 9:03 AM CDT) [facility] Sodium 143 135 - 145 mmol/L Potassium, pl 3.7 3.3 - 4.9 mmol/L [facility] Chloride 103 97 - 110 mmol/L [facility] CO2 27 22 - 32 mmol/L [facility] Anion gap 13 2 - 15 mmol/L [facility] BUN 11 6 - 25 mg/dL [facility] Creatinine 0.80 0.60 - 1.10 mg/dL [facility] Glucose 73 70 - 199 mg/dL [facility] Comment: Interpretive Data Fasting [...] 2022. Calcium 8.2(L) 8.5 - 10.3 mg/dL [facility] Blood 11/01/2024 9:03 AM CDT 11/01/2024 10:23 AM CDT us Mar George MD LAB BLOOD OR DERABLES Final Result [facility] Department [place] [address] * ECG 12 lead (11/01/2024 6:33 AM CDT) [facility] Ventricular Rate EKG/Min 80 BPM [facility] Atrial Rate 80 BPM [facility] SD-Interval (MSEC) 108 ms [facility] QRS-Interval (MSEC) 50 ms [facility] QT-Interval (MSEC) 420 ms [facility] QTc 484 ms [facility] P Virgie 79 degrees [facility] R Virgie 55 degrees [facility] T Virgie 59 degrees [facility] Diagnosis Sinus rhythm with short SD Low voltage QRS Nonspecific ST and T wave abnormality Abnormal ECG Confirmed by Gustabo Mcdaniels MD ([id number]) on 11/02/2024 8:44:45 AM [facility] 11/01/2024 6:33 AM CDT 11/02/2024 8:44 AM CDT us Juliano Arredondo MD ECG ORDERABLES Fin al Result [facility] * eGFR (11/01/2024 12:24 AM CDT) eGFR [...] MD LAB BLOOD OR DERABLES Final Result [facility] [place] [address] * (ABNORMAL) Phosphorus (11/01/2024 12:24 AM CDT) Phosphorus, pl 1.4(L) 2.3 - 4.5 mg/dL Blood 11/01/2024 12:2 4 AM CDT 11/01/2024 12:43 AM CDT Mar George MD LAB BLOOD OR DERABLES Final Result Performing Organization Address City/[facility]/ZIP Co de Phone Number [facility] [place] [address] * Magnesium (11/01/2024 12:24 AM CDT) [facility] Magnesium 2.2 1.4 - 2.5 mg/dL Blood 11/01/2024 12:2 4 AM CDT 11/01/2024 12:43 AM CDT Mar George MD LAB BLOOD OR DERABLES Final Result Performing Organization Address City/[facility] de Phone Number [facility] [place] [address] * Basic metabolic panel (11/01/2024 12:24 AM CDT) [facility] Sodium 139 135 - 145 mmol/L Potassium, pl 4.3 3.3 - 4.9 mmol/L [facility] Comment:Hemolyzed; Potassium value may be falsely elevated by as much as 0.6-1.0 mmol/L. Suggest redraw and reanalysis. Chloride 105 97 - 110 mmol/L [facility] CO2 26 22 - 32 mmol/L [facility] Anion gap 8 2 - 15 mmol/L [facility] BUN 10 6 - 25 mg/dL [facility] Creatinine 0.80 0.60 - 1.10 mg/dL [facility] Glucose 88 70 - 199 mg/dL [facility] Comment: Interpretive Data Fasting [...] Calcium 8.5 8.5 - 10.3 mg/dL [facility] Blood 11/01/2024 12:2 4 AM CDT 11/01/2024 12:43 AM CDT Mar George MD LAB BLOOD OR DERABLES Final Result [facility] [place] [address] * Norovirus PCR Stool (10/31/2024 5:27 PM CDT) Pathologist [facility] Norovirus GI RNA Not Detected Not Detected [facility] Norovirus GII RNA Not Detected Not Detected [facility] Comment: Interpretive data: Testing performed at the [facility] using the [employer] Xpert Norovirus Assay. This assay uses nucleic [...] GENERAL ORDERABLES Final Result Performing Organization Address [facility] Co de Phone Number [facility] [place] [address] [facility] * eGFR (10/31/2024 4:26 PM CDT) [...] OR DERABLES Final Result Performing Organization Address [facility] Co de Phone Number [facility] [place] [address] * (ABNORMAL) Vitamin A (10/31/2024 4:26 PM CDT) Pathologist [facility] Vitamin A 22.1(L) 32.5 - 78.0 mcg/dL [facility] Comment: ADDITIONAL INFORMATION This test was developed and its performance characteristics determined by [facility] in a manner consistent with CLIA requirements. This test has not been cleared or approved by the U.S. Food and Drug Administration. Test Performed by: [place] [address] Hospital Carrier: Kimberley Hurtado Ph.D.; CLIA# [id number] Blood 10/31/2024 4:26 PM CDT 10/31/2024 6:25 PM CDT Mar George MD LAB BLOOD OR DERABLES Final Result Performing Organization Address [facility]/ZIP Co de Phone Number [facility] [place] [address] [facility] * (ABNORMAL) Vitamin K (10/31/2024 4:26 PM CDT) Phylloquinone (Vit K) 0.04(L) 0.10 - 2.20 ng/mL [facility] Comment: ADDITIONAL INFORMATION This test was developed and its performance characteristics determined by [facility] in a manner consistent with CLIA requirements. This test has not been cleared or approved by the U.S. Food and Drug Administration. Test Performed by: [facility] - [address] [address] Hospital Carrier: Kimberley Hurtado Ph.D.; CLIA# [id number] Blood 10/31/2024 4:26 PM CDT 10/31/2024 6:27 PM CDT Mar George MD LAB BLOOD OR DERABLES Final Result Performing Organization Address City/[facility]/ZIP Co de Phone Number [facility] [place] [address] [facility] * (ABNORMAL) Vitamin D 25 hydroxy (10/31/2024 4:26 PM CDT) Pathologist [facility] Vitamin D 25-OH 9(L) 30 - 80 ng/mL Blood 10/31/2024 4:26 PM CDT 10/31/2024 6:04 PM CDT Mar George MD LAB BLOOD OR DERABLES Final Result Performing Organization Address City/[facility]/ZIP Co de Phone Number [facility] [place] [address] * (ABNORMAL) Phosphorus (10/31/2024 4:26 PM CDT) [facility] Phosphorus, pl 1.5(L) 2.3 - 4.5 mg/dL Blood 10/31/2024 4:26 PM CDT 10/31/2024 6:04 PM CDT Mar George MD LAB BLOOD OR DERABLES Final Result Performing Organization Address City/[facility] Co de Phone Number [facility] [place] [address] * Magnesium (10/31/2024 4:26 PM CDT) [facility] Magnesium 1.8 1.4 - 2.5 mg/dL Blood 10/31/2024 4:26 PM CDT 10/31/2024 6:04 PM CDT Mar George MD LAB BLOOD OR DERABLES Final Result Performing Organization Address City/[facility] Co de Phone Number [facility] [place] [address] * Basic metabolic panel (10/31/2024 4:26 PM CDT) [facility] Sodium 142 135 - 145 mmol/L Potassium, pl 4.3 3.3 - 4.9 mmol/L [facility] Chloride 103 97 - 110 mmol/L [facility] CO2 30 22 - 32 mmol/L [facility] Anion gap 9 2 - 15 mmol/L [facility] BUN 9 6 - 25 mg/dL [facility] Creatinine 0.94 0.60 - 1.10 mg/dL [facility] Glucose 76 70 - 199 mg/dL [facility] Comment: Interpretive Data Fasting [...] 2022. Calcium 9.7 8.5 - 10.3 mg/dL [facility] Blood 10/31/2024 4:26 PM CDT 10/31/2024 6:04 PM CDT Mar George MD LAB BLOOD OR DERABLES Final Result [facility] [place] [address] * XR Abdomen AP 1 Vw With [...] Check Sample (10/31/2024 8:47 AM CDT) Pathologist [facility] ABO Rh A Positive [facility] HCLL OTHER 10/31/2024 8:47 AM CDT 10/31/2024 10:36 AM CDT Mar George MD LAB BLOOD OR DERABLES Final Result [facility] [place] [address] [facility] * Respiratory pathogen panel Nasopharyngeal (10/31/2024 8:47 AM CDT) [facility] Influenza A RNA Not Detected Not Detected Influenza B RNA Not Detected Not Detected [facility] RSV RNA Not Detected Not Detected [facility] COVID-19 RNA Not Detected Not Detected [facility] Coronavirus 229E RNA Not Detected Not Detected [facility] Coronavirus HKU1 RNA Not Detected Not Detected [facility] Coronavirus NL63 RNA Not Detected Not Detected [facility] Coronavirus OC43 RNA Not Detected Not Detected [facility] Adenovirus DNA Not Detected Not Detected [facility] Metapneumovirus RNA Not Detected Not Detected [facility] Rhinovirus/Enterov irus RNA Not Detected Not Detected [facility] Parainfluenza 1 RNA Not Detected Not Detected [facility] Parainfluenza 2 RNA Not Detected Not Detected [facility] Parainfluenza 3 RNA Not Detected Not Detected [facility] Parainfluenza 4 RNA Not Detected Not Detected [facility] B. pertussis DNA Not Detected Not Detected [facility] B. parapertussis DNA Not Detected Not Detected [facility] C. pneumoniae DNA Not Detected Not Detected [facility] M. pneumoniae DNA Not Detected Not Detected [facility] Nasopharyngeal 10/31/2024 8: 47 AM CDT 10/31/2024 9:05 AM CDT Narrative [facility] - 10/31/2024 10:37 AM CDT Is the Patient experiencing symptoms consistent with COVID?->Yes Surveillance testing for transplant patient?->No Interpretive Data The Booster FilmArray Respiratory Panel (RP2.1) assay is a [...] assay has FDA clearance for testing of COLUMNIST swabs. The performance of additional specimen types has been assessed by the performing laboratory. The performance characteristics of this assay have been determined by [facility] Molecular Infectious Disease Laboratory. Current interpretive data was last revised on 22. Mar George MD LAB MICROBIOLOGY - GENERAL ORDERABLES Final Result [facility] Department [place] [address] * eGFR (10/31/2024 7:51 AM CDT) eGFR [...] MD LAB BLOOD ORDERABLES Fin al Result [facility] [place] [address] * Differential, auto (10/31/2024 7:51 AM CDT) Neutrophil abs 4.89 1.50 - 6.50 K/cumm Imm gran abs 0.06 0.00 - 0.10 K/cumm [facility] Lymphocyte abs 0.81 0.80 - 3.30 K/cumm [facility] Monocyte abs 0.35 0.20 - 0.80 K/cumm [facility] Eosinophil abs 0.15 0.00 - 0.50 K/cumm [facility] Basophil abs 0.03 0.00 - 0.10 K/cumm [facility] Neutrophil pct 77.6 % [facility] Comment: Interpretive Data Percent cell count reference ranges are not reported, since discordance with absolute values may lead to misinterpretation of CBC data. Current Interpretive Data was last revised on 2017. Imm gran pct 1.0 % [facility] Comment: Interpretive Data Percent cell count reference ranges are not reported, since discordance with absolute values may lead to misinterpretation of CBC data. Current Interpretive Data was last revised on 2017. Lymphocyte pct 12.9 % [facility] Comment: Interpretive Data Percent cell count reference ranges are not reported, since discordance with absolute values may lead to misinterpretation of CBC data. Current Interpretive Data was last revised on 2017. Monocyte pct 5.6 % [facility] Comment: Interpretive Data Percent cell count reference ranges are not reported, since discordance with absolute values may lead to misinterpretation of CBC data. Current Interpretive Data was last revised on 2017. Eosinophil pct 2.4 % [facility] Comment: Interpretive Data Percent cell count reference ranges are not reported, since discordance with absolute values may lead to misinterpretation of CBC data. Current Interpretive Data was last revised on 2017. Basophil pct 0.5 % [facility] Comment: Interpretive Data Percent cell count reference ranges are not reported, since discordance with absolute values may lead to misinterpretation of CBC data. Current Interpretive Data was last revised on 2017. Blood 10/31/2024 7:51 AM CDT 10/31/2024 8:12 AM CDT us Angela Ramirez MD LAB BLOOD ORDERABLES Fin al Result Performing Organization Address [facility] Co de Phone Number [facility] [place] [address] * Critical Result Callback Chemistry (10/31/2024 7:51 AM CDT) Date Notified [id number] Time Notified 899 [facility] TestName Potassium Plas [facility] Called/Read Back Suni [place] [facility] Credentials RN [facility] Called By TP [facility] Blood 10/31/2024 7:51 AM CDT 10/31/2024 8:14 AM CDT us Angela Ramirez MD LAB BLOOD ORDERABLES Fin al Result Performing Organization Address [facility] de Phone Number [facility] Department [place] [address] * (ABNORMAL) Calcium, ionized (10/31/2024 7:51 AM CDT) Calcium, Ionized 4.37(L) 4.50 - 5.10 mg/dL Blood 10/31/2024 7:51 AM CDT 10/31/2024 8:12 AM CDT us Mar George MD LAB BLOOD OR DERABLES Final Result Performing Organization Address City/[facility] Co de Phone Number [facility] Department [place] [address] * (ABNORMAL) CBC with auto differential (10/31/2024 7:51 AM CDT) Pathologist [facility] WBC 6.29 3.80 - 9.90 K/cumm Hgb 11.4(L) 11.9 - 15.5 g/dL [facility] Hct 31.9(L) 35.6 - 45.5 % [facility] Plt 105(L) 150 - 400 K/cumm [facility] MPV 11.2 9.1 - 12.3 fL [facility] RBC 3.29(L) 3.90 - 5.20 M/cumm [facility] MCV 97.0(H) 81.3 - 96.4 fL [facility] MCH 34.7(H) 27.1 - 33.3 pg [facility] MCHC 35.7 32.3 - 35.7 g/dL [facility] RDW CV 15.0(H) 11.1 - 14.9 % [facility] RDW SD 53.2(H) 35.7 - 48.1 fL [facility] NRBC abs 0.00 0.00 - 0.01 K/cumm [facility] Blood 10/31/2024 7:51 AM CDT 10/31/2024 8:12 AM CDT Angela Ramirez MD LAB BLOOD ORDERABLES Fin al Result [facility] Department [place] [address] * Type and screen (10/31/2024 7:51 AM CDT) Pathologist [facility] ABO Rh A Positive Zach, indirect Negative [facility] Blood 10/31/2024 7:51 AM CDT 10/31/2024 8:20 AM CDT Narrative [facility] - 10/31/2024 9:24 AM CDT Has the patient had Daratumumab or Isatuximab in the past 6 months?->Unknown Mar George MD LAB BLOOD BA NK TEST ORDERABLES Final Result Performing Organization Address [facility] Co de Phone Number [facility] Department [place] [address] * Infection Prevention MRSA Only (Staphylococcus aureus) Culture Nasal (10/31/2024 7:51 AM CDT) Report Final Report: Negative Nasal 10/31/2024 7:51 AM CDT 10/31/2024 8:13 AM CDT Narrative [facility] - 11/01/2024 9:38 AM CDT Testing performed by [facility] Microbiology Laboratory ([phone]). Mar George MD LAB MICROBIOLOGY - GENERAL ORDERABLES Final Result Performing Organization Address [facility] de Phone Number [facility] Department [place] [address] * hCG, blood, quantitative (10/31/2024 7:51 AM [...] AM CDT 10/31/2024 8:14 AM CDT Result [facility] Mar George MD LAB BLOOD OR DERABLES Final Result Performing Organization Address [facility] Co de Phone Number [facility] [place] [address] * Phosphorus (10/31/2024 7:51 AM CDT) Pathologist [facility] Phosphorus, pl 2.4 2.3 - 4.5 mg/dL Blood 10/31/2024 7:51 AM CDT 10/31/2024 8:14 AM CDT Angela Ramirez MD LAB BLOOD ORDERABLES Fin al Result Performing Organization Address City/[facility] Co de Phone Number [facility] Department [place] [address] * Magnesium (10/31/2024 7:51 AM CDT) [facility] Magnesium 2.1 1.4 - 2.5 mg/dL Blood 10/31/2024 7:51 AM CDT 10/31/2024 8:14 AM CDT Angela Ramirez MD LAB BLOOD ORDERABLES Fin al Result Performing Organization Address [facility] de Phone Number [facility] [place] [address] * (ABNORMAL) Hepatic function panel (10/31/2024 7:51 AM CDT) [facility] Bilirubin, total 2.0(H) 0.1 - 1.2 mg/dL Bilirubin, direct 0.9(H) 0.1 - 0.3 mg/dL [facility] Comment:Reviewed Protein, pl 5.5(L) 6.5 - 8.5 g/dL [facility] Albumin 3.0(L) 3.5 - 5.0 g/dL [facility] Alk phos 127 40 - 130 Units/L [facility] ALT 69(H) 7 - 45 Units/L [facility] Comment:Reviewed AST 129(H) 10 - 45 Units/L [facility] Comment:Reviewed Blood 10/31/2024 7:51 AM CDT 10/31/2024 8:14 AM CDT us Angela Ramirez MD LAB BLOOD ORDERABLES Fin al Result [facility] Department [place] [address] * (ABNORMAL) Basic metabolic panel (10/31/2024 7:51 AM CDT) Sodium 144 135 - 145 mmol/L Potassium, pl 2.5(C) 3.3 - 4.9 mmol/L [facility] Comment:Repeated and Verifie d Chloride 100 97 - 110 mmol/L [facility] CO2 35(H) 22 - 32 mmol/L [facility] Anion gap 9 2 - 15 mmol/L [facility] BUN 8 6 - 25 mg/dL [facility] Creatinine 0.80 0.60 - 1.10 mg/dL [facility] Glucose 116 70 - 199 mg/dL [facility] Comment: Interpretive Data Fasting [...] 2022. Calcium 8.4(L) 8.5 - 10.3 mg/dL [facility] Blood 10/31/2024 7:51 AM CDT 10/31/2024 8:14 AM CDT us Angela Ramirez MD LAB BLOOD ORDERABLES Fin al Result Performing Organization Address [facility]/ZIP Co de Phone Number [facility] Department [place] [address] * (ABNORMAL) Troponin I high-sensitivity 2-hour (10/31/2024 5:13 AM CDT) Trop I hs 47(H) <=17 ng/L Comment: Interpretive Data For further hscTnI resources including the diagnostic algorithm and an aid in interpretation, copy and paste this link: [email or web address].[email or web address].org/[email or web address] Current Interpretive Data last revised 2020. Trop I hs delta -9 ng/L [facility] Trop I hs interp Equivocal [facility] Blood 10/31/2024 5:13 AM CDT 10/31/2024 5:24 AM CDT us Bro Blackwell MD LAB BLOOD ORDERABLES Final R esult Performing Organization Address City/[facility] Co de Phone Number [facility] Department [place] [address] * (ABNORMAL) Potassium, whole blood (10/31/2024 5:13 AM CDT) Pathologist [facility] Potassium, bld 2.6(L) 3.3 - 4.9 mmol/L Blood 10/31/2024 5:13 AM CDT 10/31/2024 5:23 AM CDT us Bro Blackwell MD LAB BLOOD ORDERABLES Final R esult Performing Organization Address City/[facility]/ZIP Co de Phone Number [facility] Department [place] [address] * (ABNORMAL) ECG 12-LEAD (10/31/2024 4:10 AM [...] MD ECG ORDERABLES Final Re sult [facility] * (ABNORMAL) Troponin I high-sensitivity series (baseline, [...] LAB BLOOD ORDERABLES Final R esult [facility] Department [place] [address] * eGFR (10/31/2024 3:14 AM CDT) eGFR [...] MD LAB BLOOD ORDERABLES Final R esult [facility] [place] [address] * (ABNORMAL) Differential, auto (10/31/2024 3:14 AM CDT) Neutrophil abs 7.73(H) 1.50 - 6.50 K/cumm Imm gran abs 0.12(H) 0.00 - 0.10 K/cumm [facility] Lymphocyte abs 0.45(L) 0.80 - 3.30 K/cumm [facility] Monocyte abs 0.46 0.20 - 0.80 K/cumm [facility] Eosinophil abs 0.00 0.00 - 0.50 K/cumm [facility] Basophil abs 0.01 0.00 - 0.10 K/cumm [facility] Neutrophil pct 88.2 % [facility] Comment: Interpretive Data Percent cell count reference ranges are not reported, since discordance with absolute values may lead to misinterpretation of CBC data. Current Interpretive Data was last revised on 2017. Imm gran pct 1.4 % [facility] Comment: Interpretive Data Percent cell count reference ranges are not reported, since discordance with absolute values may lead to misinterpretation of CBC data. Current Interpretive Data was last revised on 2017. Lymphocyte pct 5.1 % [facility] Comment: Interpretive Data Percent cell count reference ranges are not reported, since discordance with absolute values may lead to misinterpretation of CBC data. Current Interpretive Data was last revised on 2017. Monocyte pct 5.2 % [facility] Comment: Interpretive Data Percent cell count reference ranges are not reported, since discordance with absolute values may lead to misinterpretation of CBC data. Current Interpretive Data was last revised on 2017. Eosinophil pct 0.0 % [facility] Comment: Interpretive Data Percent cell count reference ranges are not reported, since discordance with absolute values may lead to misinterpretation of CBC data. Current Interpretive Data was last revised on 2017. Basophil pct 0.1 % [facility] Comment: Interpretive Data Percent cell count reference ranges are not reported, since discordance with absolute values may lead to misinterpretation of CBC data. Current Interpretive Data was last revised on 2017. Blood 10/31/2024 3:14 AM CDT 10/31/2024 3:34 AM CDT us Bro Blackwell MD LAB BLOOD ORDERABLES Final R esult Performing Organization Address City/[facility] Co de Phone Number [facility] [place] [address] * Thyroid Function Holden (10/31/2024 3:14 AM CDT) TSH 0.55 0.30 - 4.20 mcIUnit/mL Blood 10/31/2024 3:14 AM CDT 10/31/2024 3:34 AM CDT us Bro Blackwell MD LAB BLOOD ORDERABLES Final R esult Performing Organization Address City/[facility] Co de Phone Number [facility] [place] [address] * (ABNORMAL) Calcium, ionized (10/31/2024 3:14 AM CDT) Calcium, Ionized 4.09(L) 4.50 - 5.10 mg/dL Blood 10/31/2024 3:14 AM CDT 10/31/2024 3:29 AM CDT us Bro Blackwell MD LAB BLOOD ORDERABLES Final R esult Performing Organization Address [facility] Co de Phone Number [facility] Department [place] [address] * (ABNORMAL) CBC with auto differential (10/31/2024 3:14 AM CDT) [facility] WBC 8.77 3.80 - 9.90 K/cumm Hgb 12.2 11.9 - 15.5 g/dL [facility] Hct 33.1(L) 35.6 - 45.5 % [facility] Plt 111(L) 150 - 400 K/cumm [facility] MPV 11.1 9.1 - 12.3 fL [facility] RBC 3.51(L) 3.90 - 5.20 M/cumm [facility] MCV 94.3 81.3 - 96.4 fL [facility] MCH 34.8(H) 27.1 - 33.3 pg [facility] MCHC 36.9(H) 32.3 - 35.7 g/dL [facility] RDW CV 14.7 11.1 - 14.9 % [facility] RDW SD 50.9(H) 35.7 - 48.1 fL [facility] NRBC abs 0.00 0.00 - 0.01 K/cumm [facility] Blood 10/31/2024 3:14 AM CDT 10/31/2024 3:34 AM CDT Bro Blackwell MD LAB BLOOD ORDERABLES Final R esult Performing Organization Address [facility]/ZIP Co de Phone Number [facility] [place] [address] * Phosphorus (10/31/2024 3:14 AM CDT) [facility] Phosphorus, pl 2.7 2.3 - 4.5 mg/dL Comment:Hemolyzed; result ma y be falsely elevated Blood 10/31/2024 3:14 AM CDT 10/31/2024 3:34 AM CDT Bro Blackwell MD LAB BLOOD ORDERABLES Final R esult Performing Organization Address City/[facility]/ZIP Co de Phone Number [facility] [place] [address] * Magnesium (10/31/2024 3:14 AM CDT) Pathologist [facility] Magnesium 2.4 1.4 - 2.5 mg/dL Blood 10/31/2024 3:14 AM CDT 10/31/2024 3:34 AM CDT Bro Blackwell MD LAB BLOOD ORDERABLES Final R esult Performing Organization Address [facility] de Phone Number [facility] [place] [address] * (ABNORMAL) Hepatic function panel (10/31/2024 3:14 AM CDT) Pathologist [facility] Bilirubin, total 2.2(H) 0.1 - 1.2 mg/dL Bilirubin, direct See Comment 0.1 - 0.3 mg/dL [facility] Comment:Credited; Hemolyzed Specimen Protein, pl 5.7(L) 6.5 - 8.5 g/dL [facility] Albumin 2.9(L) 3.5 - 5.0 g/dL [facility] Alk phos 123 40 - 130 Units/L [facility] Comment:Hemolyzed; result ma y be falsely decreased ALT See Comment 7 - 45 Units/L [facility] Comment:Credited; Hemolyzed Specimen AST See Comment 10 - 45 Units/L [facility] Comment:Credited; Hemolyzed Specimen Blood 10/31/2024 3:14 AM CDT 10/31/2024 3:34 AM CDT Bro Blackwell MD LAB BLOOD ORDERABLES Final R esult Performing Organization Address [facility] Co de Phone Number [facility] [place] [address] * Basic metabolic panel (10/31/2024 3:14 AM CDT) Sodium 142 135 - 145 mmol/L Potassium, pl See Comment 3.3 - 4.9 mmol/L [facility] Comment:Credited; Hemolyzed Specimen Chloride 98 97 - 110 mmol/L [facility] CO2 31 22 - 32 mmol/L [facility] Anion gap 13 2 - 15 mmol/L [facility] BUN 7 6 - 25 mg/dL [facility] Creatinine 0.71 0.60 - 1.10 mg/dL [facility] Glucose 121 70 - 199 mg/dL [facility] Comment: Interpretive Data Fasting [...] 2022. Calcium 8.5 8.5 - 10.3 mg/dL [facility] Blood 10/31/2024 3:14 AM CDT 10/31/2024 3:34 AM CDT us Bro Blackwell MD LAB BLOOD ORDERABLES Final R esult [facility] [place] [address] * XR Chest 1 Vw Portable (10/31/2024 [...] HPV mRNA E6/E7, CHLAMYDIA/N.GONORRHOEAE (09/14/2016 12:56 PM APPAREL DESIGNER) Pathologist [facility] CLINICAL INFORMATION [facility] HISTORICAL RESULTS Comment: LMP: [facility] HISTORICAL RESULTS PREV. PAP: [facility] HISTORICAL RESULTS Comment:2011 PREV. BX: [facility] HISTORICAL RESULTS Comment:UNKNOWN SOURCE: [facility] HISTORICAL RESULTS Comment:Cervix, Endocervix STATEMENT OF ADEQUACY: [facility] HISTORICAL RESULTS Comment:Satisfactory for savana luation. Endocervical/transformation zone component present. INTERPRETATION/RES ULT: [facility] HISTORICAL RESULTS Comment:Negative for intraep ithelial lesion or malignancy. COMMENT: [facility] HISTORICAL RESULTS Comment:This Pap test has be en evaluated with computer assisted technology. STEEL FABRICATING SUPERVISOR: ME [facility] HISTORICAL RESULTS Comment:YQ, CT(ASCP) CT scre ening location: [employer] [place] [address] [place] [address] C. trachomatis RNA NOT DETECTED NOT DETECTED [facility] HISTORICAL RESULTS N. gonorrhoeae RNA NOT DETECTED NOT DETECTED [facility] HISTORICAL RESULTS COMMENT [facility] HISTORICAL RESULTS Comment: This test was performed using the APTIMA COMBO2 Assay ([employer] The analytical performance characteristics of this assay, when used to test [employer] specimens have been determined by [employer]. 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
[2025-01-08 07:46] LABS: Troponin I < 0.012 ng/mL (0.000-0.034)
--- OUTSIDE RECORDS SUMMARY | 2025-01-08 07:46 | XMS_ITS | Encounter Summary ---
Author Organization [facility] Facility Care Team Providers Care Adult Neuropsychologist Name Role Phone Christian Merritt MD Primary Care Provider [phone] Mo Mitchell MD Primary Care Provider [phone] Neeta Ott RN Unavailable [phone] Encounter Details Date Type Department Care Team (Latest Contact Info) Description 01/05/2017 Orders Only [facility] Provider, MD Serge [address] [place] [id number] Social History Tobacco Use Types Packs/Day Years Used Date Smoking Tobacco: Never Assessed Comments Unknown Sex and Gender Information Value Date Recorded Sex Assigned at Not on file Legal Sex Female 8:06 PM [employer] Gender Identity Not on file Sexual [...] documented as of this encounter Care Teams Adult Neuropsychologist Relationship Specialty Start Date End Date Christian Merritt MD PCP - General Emergency Medicine 06/10/22 10/30/24 Mo Mitchell MD [address] [place] [id number] PCP - General Internal Medicine 10/31/24 Neeta Ott, RN [address] [address] [facility] Calibration Laboratory Technician 11/29/24 12/06/24 documented as of this encounter
[2025-01-08 07:54] LABS: Alveolar/Arterial O2 Gradient 30.6 mmHg; Base Excess ABG -1.2 mEq/l (+/-2.0); Fractional Inspired Oxygen 21 %; HCO3 ABG 20.6 mEq/l (22.0-26.0); Oxygen Saturation ABG 97.4 % (95.0-100.0); Oxyhemoglobin 93.2 % THb (90.0-100.0); PCO2 ABG 27.1 mmHg (35.0-45.0); PO2 ABG 86.7 mmHg (80.0-100.0); PO2 FiO2 Ratio Arterial Blood 4.13 %; Total Hemoglobin 13.7 g/dL (12.0-18.0); pH ABG 7.499 (7.350-7.450)
[2025-01-08 07:57] LABS: Device ROOM AIR; Site Drawn LEFT BRACHIAL
[2025-01-08 07:59] LABS: BEDSIDEPREGUCG Negative (Negative)
[2025-01-08 08:05] LABS: Lactic Acid Reflex 1.8 mmol/L (0.7-2.0)
[2025-01-08 08:06] LABS: Magnesium 1.4 mg/dL (1.6-2.3)
[2025-01-08 08:07] LABS: Add Urine Microscopic? YES; Appearance Urine Cloudy (Clear); Bacteria Urine 1+ /hpf; Bilirubin Urine Negative (Negative); Blood Urine Negative (Negative); Color Urine Dark Yellow (Yellow); Glucose Urine UA Negative (Negative); Ketones Urine Negative (Negative); Leukocyte Esterase Ur Negative LEU/UL (Negative); Need Manual Microscopic Reviewed; Nitrate Urine Negative (Negative); Non Pathogenic Casts 0-2; Protein Urine 1+ mg/dL (Negative); RBC Urine 0-2 /hpf (0-2); Specific Grav Ur 1.026 (1.001-1.035); Squamous Epithelial Cell Urine Moderate /hpf (Few); WBC Urine 21-50 /hpf (0-3); pH Urine 5.5 (5.0-9.0)
[2025-01-08 08:10] LABS: Prothrombin Time 12.9 Seconds (11.1-14.7)
[2025-01-08 08:12] LABS: Partial Thromboplastin Time 25.3 Seconds (22.3-36.8)
[2025-01-08 08:16] LABS: NT Pro B Type Natriuretic Pept 98 pg/mL (19.9-100); Troponin I < 0.012 ng/mL (0.000-0.034)
[2025-01-08 08:35] LABS: Influenza A QL RT-PCR Negative (Negative); Influenza B QL RT-PCR Negative (Negative); RSV RNA, RT-PCR Negative (Negative); SARS-CoV-2 RNA PCR Negative (Negative)
[2025-01-08] MEDS: MAGNESIUM SULF 2 GM/WATER 50ML 2 GM/50 ML BAG IVPB (08:43)
--- NOTE | 2025-01-08 09:05 | ED_ITS ---
HPI - General Adult General Chief complaint: Nausea/Vomiting/Diarrhea Stated complaint: n/v, shaky, fever Time Seen by Provider: 01/08/25 07:14 History of Present Illness HPI narrative: Patient 34-year-old female who presents emergency department chief complaint of dizziness and shakiness for last several days. Patient has prior history of a cardiac arrest and has history of a blood clot in her left ventricle the patient reports she is supposed to be on anticoagulants and reports she is followed by her primary care provider reports that she was unable to afford the anticoagulants and her primary has been working with her insurance and has had her taking a aspirin in the time period. Patient reports that she is crampy and reports that she feels very shaky Related Data Home Medications ?Medication ?Instructions ?Recorded ?Confirmed ?Last Taken ?Type ferrous sulfate 325 mg (65 mg 325 mg PO BID 03/28/24 01/08/25 01/07/25 History iron) tablet,delayed release folic acid 1 mg tablet 1 mg feeding tube DAILY 03/28/24 01/08/25 01/07/25 History megestrol 20 mg tablet 20 mg feeding tube QAM 03/28/24 01/08/25 01/07/25 History multivitamin with folic acid 400 1 tablet PO QAM 03/28/24 01/08/25 01/07/25 History mcg tablet (Thera) thiamine HCl (vitamin B1) 100 mg 100 mg feeding tube DAILY 03/28/24 01/08/25 01/07/25 History tablet vitamin B complex (Vitamins B 1 cap feeding tube QAM 03/28/24 01/08/25 01/07/25 History Complex capsule) lactose-reduced food with fiber See Rx Instructions .Route .COMPLEX 08/07/24 01/08/25 01/07/25 History 0.06 gram-1.5 kcal/mL oral liquid (Jevity 1.5 Chriss) buspirone 15 mg tablet 15 mg feeding tube TID 01/08/25 01/08/25 01/07/25 History cefadroxil 500 mg capsule 500 mg feeding tube Q12H 01/08/25 01/08/25 01/07/25 History cyanocobalamin (vitamin B-12) 1,000 mcg feeding tube MONTHLY 01/08/25 01/08/25 01/07/25 History 1,000 mcg tablet nicotine 14 mg/24 hr daily 1 patch transdermal Q24H 01/08/25 01/08/25 01/07/25 History transdermal patch olanzapine 5 mg tablet 5 mg feeding tube QPM 01/08/25 01/08/25 01/07/25 History oxycodone 5 mg tablet 5 mg feeding tube Q8H PRN pain 01/08/25 01/08/25 01/07/25 History Allergies Allergy/AdvReac Type Severity Reaction Status Date / Time latex Allergy Rash Verified 01/08/25 11:26 melatonin AdvReac Mild chest Verified 01/08/25 11:26 heaviness Review of Systems 2 Review of Systems: A 10 system review of systems was completed on the patient and is negative except for what is stated in the HPI. Nursing and ancillary documentation was reviewed. [facility] Past Medical History Medical History Adrenal insufficiency Depression with anxiety Avoidant/restrictive food intake disorder Cannabis abuse Elevated LFTs Mitral valve prolapse Surgical History Surgical History History of percutaneous endoscopic gastrostomy Family History Family History Mother Heart attack Mitral valve prolapse Grandparent Cancer Grandparent Mitral valve prolapse Social History Social History Social History: Surrogate medical decision maker: Jorge Luis Centeno, significant other. Code status: Full code. Smoking packs per day: 0.3 Smoking cigarettes per day: 6.0 Years smoked: 19 Smoking pack-years: 5.70 Smoking status: Current every day smoker Tobacco type: cigarettes Alcohol intake: current Drinks per week: 4 Alcohol use details: States she drinks 1 pint a week Substance use: former Substance use type: marijuana Other substance usage details: weekly Last use: 10/31/23 Do You Feel Safe in your Home?: Yes Lack of Transportation: No Lack of Food: Never True Current Housing: I Have Housing Concerned About Future Housing: No Difficulty Paying Gas/Electric Bills: No Difficulty Paying for Meds: No Currently Unemployed: No Education: Associate Degree Difficulty w/ Childcare or Family Care: No Living arrangements: with family Additional living arrangements comments: with 7 year old son and fibj? Occupation/Education: unemployed Spiritual care concerns: No Agree to blood products: Yes Exam 2 Narrative: GENERAL: Well-appearing, well-nourished, and in no acute distress. HEAD: Normocephalic, atraumatic. EYES: PERRLA and EOMI. ENT: Nares clear, no rhinorrhea or epistaxis. Mucous membranes moist. NECK: Supple. CHEST: Clear to auscultation. No respiratory distress. HEART: Regular rate and rhythm. No murmur heard. Normal peripheral pulses. ABDOMEN: Soft, nontender, nondistended G-tube in place, normal active bowel sounds. EXTREMITIES: Normal range of motion. No edema. SKIN: Warm, dry, no rash. NEURO: No focal deficits. Alert and oriented x3. PSYCH: Normal mood and affect. Course Vital Signs Vital signs: Vital Signs Temperature 36.6 C 01/08/25 07:06 Pulse Rate 101 H 01/08/25 07:06 Respiratory Rate 10 L 01/08/25 07:06 Blood Pressure 130/93 H 01/08/25 07:06 Pulse Oximetry 100 01/08/25 07:06 Temperature 36.7 C 01/08/25 11:19 Pulse Rate 72 01/08/25 16:00 Respiratory Rate 18 01/08/25 11:19 Blood Pressure 110/70 01/08/25 14:33 Pulse Oximetry 98 01/08/25 11:19 Medical Decision Making [facility] Narrative Medical decision making narrative: Differential diagnosis includes pulmonary embolism, ACS, electrolyte abnormality, infection, Laboratory studies showed a urinalysis with 21-50 white blood cells 1+ bacteria COVID flu RSV were negative magnesium was 1.4 ABG showed a pH is 7.499 and pCO2 of 27.1 a PO2 of 86 CBC was within normal limits CTA chest with abdomen pelvis showed No evidence of pulmonary embolism no evidence of acute intra-abdominal pathology. There was healing rib fractures on the right Vital Signs Vital Signs: Vital Signs Temperature 36.6 C 01/08/25 07:06 Pulse Rate 101 H 01/08/25 07:06 Respiratory Rate 10 L 01/08/25 07:06 Blood Pressure 130/93 H 01/08/25 07:06 Pulse Oximetry 100 01/08/25 07:06 Temperature 36.7 C 01/08/25 11:19 Pulse Rate 72 01/08/25 16:00 Respiratory Rate 18 01/08/25 11:19 Blood Pressure 110/70 01/08/25 14:33 Pulse Oximetry 98 01/08/25 11:19 Lab Data 01/08/25 07:15 01/08/25 07:15 Labs: Lab Results 01/08/25 01/08/25 01/08/25 Range/Units 07:15 07:45 07:45 WBC 5.9 (4.5-10.0) K/mm3 RBC 4.42 (4.2-5.4) M/mm3 Hgb 14.2 (12.0-15.0) g/dL Hct 43.1 (37.0-47.0) % MCV 97.5 (80-100) fl MCH 32.1 (26-34) pg MCHC 32.9 (32-36) g/dl RDW 13.4 (11.5-14.5) % Plt Count 176 (150-375) k/mm3 MPV 9.4 (7.4-10.4) fl Immature Gran % (Auto) 0.2 (0-0.5) % Neut % (Auto) 40.1 L (45.5-73.1) % Lymph % (Auto) 51.4 H (18.3-44.2) % [place] % (Auto) 6.6 (2.6-8.5) % Eos % (Auto) 0.7 (0-4.4) % Baso % (Auto) 1.0 (0.2-1.2) % Lymph # (Auto) 3.03 (0.9-3.2) K/mm3 [place] # (Auto) 0.4 (0.1-0.6) K/mm3 Eos # (Auto) 0.0 (0-0.3) K/mm3 Baso # (Auto) 0.1 (0.0-0.1) K/mm3 Abs Immat Gran (auto) 0.01 (0.00-0.031) K/mm3 Absolute Neuts (auto) 2.4 (1.3-6.7) K/mm3 Absolute Nucleated RBC 0.000 (0.0-0.012) K/mm3 Nucleated RBC % 0.0 (0.0-0.2) % PT 12.9 (11.1-14.7) Seconds INR 1.0 APTT 25.3 (22.3-36.8) Seconds Sodium 137 (137-145) mmol/L Potassium 3.7 (3.4-5.0) mmol/L Chloride 105 (98-107) mmol/L Carbon Dioxide 20 L (22-30) mmol/L Anion Gap 12 (4-12) mmol/L BUN 12 (7-17) mg/dL Creatinine 0.67 L (0.7-1.0) mg/dL Estim Creat Clear Calc 76 ml/min Estimated GFR > 60 (59 - ) Glucose 112 H (65-110) mg/dL Lactic Acid 1.8 (0.7-2.0) mmol/L Calcium 9.0 (8.4-10.2) mg/dL Magnesium Cancelled 1.4 L Total Bilirubin 0.3 (0.2-1.3) mg/dL AST 65 H (14-36) U/L ALT 29 (6-35) U/L Alkaline Phosphatase 163 H (38-126) U/L Troponin I < 0.012 < 0.012 (0.000-0.034) ng/mL NT-Pro-B Natriuret Pep Cancelled Total Protein 7.9 (6.3-8.2) g/dL Albumin 4.3 (3.5-5.1) g/dL Lipase 111 (23-300) U/L Procalcitonin ng/mL Urine Color (Yellow) Urine Appearance (Clear) Urine pH (5.0-9.0) Ur Specific [place] (1.001-1.035) Urine Protein (Negative) mg/dL Urine Glucose (UA) (Negative) mg/dL Urine Ketones (Negative) mg/dL Ur Blood (Man) (Negative) Urine Nitrate (Negative) Urine Bilirubin (Negative) Urine Urobilinogen (<2.0) mg/dL Add Ur Microanalysis Leukocyte Esterase Rfl (Negative) BECKY/UL Urine RBC (0-2) /hpf Urine WBC (0-3) /hpf Ur Squamous Epith Cells (Few) /hpf Urine Bacteria /hpf Urine Casts POC Urine HCG, Qual (Negative) Influenza A (RT-PCR) (Negative) Influenza B (RT-PCR) (Negative) RSV (RT-PCR) (Negative) SARS-CoV-2 RNA (RT-PCR) (Negative) 01/08/25 01/08/25 01/08/25 Range/Units 07:45 07:51 07:58 WBC (4.5-10.0) K/mm3 RBC (4.2-5.4) M/mm3 Hgb (12.0-15.0) g/dL Hct (37.0-47.0) % MCV (80-100) fl MCH (26-34) pg MCHC (32-36) g/dl RDW (11.5-14.5) % Plt Count (150-375) k/mm3 MPV (7.4-10.4) fl Immature Gran % (Auto) (0-0.5) % Neut % (Auto) (45.5-73.1) % Lymph % (Auto) (18.3-44.2) % [place] % (Auto) (2.6-8.5) % Eos % (Auto) (0-4.4) % Baso % (Auto) (0.2-1.2) % Lymph # (Auto) (0.9-3.2) K/mm3 [place] # (Auto) (0.1-0.6) K/mm3 Eos # (Auto) (0-0.3) K/mm3 Baso # (Auto) (0.0-0.1) K/mm3 Abs Immat Gran (auto) (0.00-0.031) K/mm3 Absolute Neuts (auto) (1.3-6.7) K/mm3 Absolute Nucleated RBC (0.0-0.012) K/mm3 Nucleated RBC % (0.0-0.2) % PT (11.1-14.7) Seconds INR APTT (22.3-36.8) Seconds Sodium (137-145) mmol/L Potassium (3.4-5.0) mmol/L Chloride (98-107) mmol/L Carbon Dioxide (22-30) mmol/L Anion Gap (4-12) mmol/L BUN (7-17) mg/dL Creatinine (0.7-1.0) mg/dL Estim Creat Clear Calc ml/min Estimated GFR (59 - ) Glucose (65-110) mg/dL Lactic Acid (0.7-2.0) mmol/L Calcium (8.4-10.2) mg/dL Magnesium Total Bilirubin (0.2-1.3) mg/dL AST (14-36) U/L ALT (6-35) U/L Alkaline Phosphatase (38-126) U/L Troponin I (0.000-0.034) ng/mL NT-Pro-B Natriuret Pep 98 Total Protein (6.3-8.2) g/dL Albumin (3.5-5.1) g/dL Lipase (23-300) U/L Procalcitonin 0.2 ng/mL Urine Color Dark yellow (Yellow) Urine Appearance Cloudy H (Clear) Urine pH 5.5 (5.0-9.0) Ur Specific [place] 1.026 (1.001-1.035) Urine Protein 1+ H (Negative) mg/dL Urine Glucose (UA) Negative (Negative) mg/dL Urine Ketones Negative (Negative) mg/dL Ur Blood (Man) Negative (Negative) Urine Nitrate Negative (Negative) Urine Bilirubin Negative (Negative) Urine Urobilinogen 1.0 (<2.0) mg/dL Add Ur Microanalysis Reviewed Leukocyte Esterase Rfl Negative (Negative) BECKY/UL Urine RBC 0-2 (0-2) /hpf Urine WBC 21-50 H (0-3) /hpf Ur Squamous Epith Cells Moderate (Few) /hpf Urine Bacteria 1+ H /hpf Urine Casts 0-2 POC Urine HCG, Qual Negative (Negative) Influenza A (RT-PCR) Negative (Negative) Influenza B (RT-PCR) Negative (Negative) RSV (RT-PCR) Negative (Negative) SARS-CoV-2 RNA (RT-PCR) Negative (Negative) ABG Data ABG results: 01/08/25 07:46 Puncture Site Left brachial ABG pH 7.499 H ABG pCO2 27.1 L ABG pO2 86.7 ABG PO2/FiO2 Ratio 4.13 ABG HCO3 20.6 L ABG O2 Saturation 97.4 ABG O2 Content 18.0 ABG Base Excess -1.2 A-a Gradient 30.6 Oxyhemoglobin 93.2 Total Hemoglobin 13.7 O2 Delivery Device Room air O2 Liters/Min Not Reportable FiO2 21 Discharge Plan Discharge Clinical Impression: Hypomagnesemia, UTI (urinary tract infection) Patient Disposition: Still a Patient Condition: Stable Time of Disposition: 17:54
[2025-01-08] MEDS: MORPHINE SULFATE (*CRX) 4 MG/ML INJ 2 MG IV PUSH (10:05)
[2025-01-08 10:16] LABS: Procalcitonin 0.2 ng/mL
--- NOTE | 2025-01-08 10:21 | ECG_ITS ---
Test Date: 2025-01-08 10:26:47 Measurements Intervals [place] Rate: 87 P: 57 [place]: 142 QRS: 58 QRSD: 73 T: -26 QT: 370 QTc: 445 Interpretive Statements SINUS RHYTHM LOW QRS VOLTAGE IN PRECORDIAL LEADS ST-T WAVE ABNORMALITY IN ANT/INF LEADS- CONSIDER ISCHEMIA BASELINE ARTIFACT- I, II, III, AVR, AVL, AVF, V1-V2 ABNORMAL ECG NONSPECIFIC T-WAVE ABNORMALITY Compared to ECG 01/08/2025 07:13:31 NO SIGNIFICANT CHANGE Electronically Signed On 01-08-2025 11:46:24 CDT by Jayme Mcneal D.O.
--- NOTE | 2025-01-08 11:07 | ADMGEN ---
This patient, Ester León, was admitted to Medical Room 245-. Patient/family oriented to hospital policies and general routines including ID bracelet, bed and alarms, visiting hours, pain management, procedures, bathroom and other care routines, personal items, smoking policy, room service/diet, and visiting hours. Information on how to activate the Rapid Response Team has been discussed. Patient/Family are encouraged to report perceived risks to care and to ask questions if they do not understand what they are told or what they should do.
[2025-01-08 11:10] LABS: Troponin I < 0.012 ng/mL (0.000-0.034)
--- NOTE | 2025-01-08 12:30 | PC.NURSE ---
pt is wearing life vest from home, she states she does not have the rope cleaner mechanism with her, I did speak with her about the importance of having someone bring her the rope cleaner so that we can have it if we should need it here
--- NOTE | 2025-01-08 14:05 | PM.IMHP ---
H&P: HPI History of Present Illness Date/Time: 01/08/25 14:05 Chief Complaint: Dizziness Narrative: 34 y/o F with PMH of cardiac arrest secondary to VFib arrest (October 2024), left ventricular clot secondary to arrest, avoidance/restrictive food intake disorder with PEG placement, depression/anxiety, adrenal insufficiency, and mitral valve prolapse presents here with dizziness. The patient presents here on 01/08 for further evaluation of dizziness and shakiness. She reports onset 2-3 days ago. She reports the dizziness is persistent and is not precipitated by position changes. She describes the tremors as fine and like her whole body is shaking. Endorses fever - 100F. She endorses nausea, vomiting, and diarrhea. Reports she is nauseated at baseline, but the vomiting and diarrhea have previously resolved. She has a hx of N/V/D which improved with antiemetics and an appetite enhancer. She has a history of an eating disorder, has PEG tube to supplement regular diet. She is currently on cefadroxil for SSA infection - only bid until she has follow-up with [facility]. Seen there after she had a Vfib arrest in October of 2024 where she was also dx with LV clot. She has been prescribed anticoagulation but has been unable to remain compliant with the med as it is expensive. She is currently working with insurance to try to have the medication covered. Currently on a baby ASA daily in interim. She reports intermittent chest pain and shortness of breath - occurring randomly and at rest as well as with exertion. Initial VS at presentation: 97.9? F, HR 101, RR 10, 130/93, and 100% on RA. ED workup showed: No leukocytosis, no anemia, normal coags, ABG showed a pH of 7.499/CO2 is 27.1/HC03 26, potassium 3.7, creatinine 0.67 and GFR >60, glucose 112, lactic 1.8, magnesium 1.4, troponin negative x3, BNP within normal limits, procalcitonin 0.2, UA showed indications of contamination. HCG negative. Viral PCR negative. CXR showed no acute cardiopulmonary pathology. Chest/abdomen/pelvis CTA showed no evidence of PE, no acute cardiopulmonary pathology, right healing rib fractures, no evidence of appendicitis/diverticulitis/intestinal obstruction. EKG showed sinus rhythm, rate 98, low QRS voltage in precordial leads, ST-T-wave abnormality in anterior/inferior leads consider ischemia. When compared to previous EKG, heart rate is decreased. Review of Systems Review of Systems: All systems reviewed & are unremarkable except as noted in HPI and below [facility] Past Medical History Medical History (Updated 01/08/25 @ 22:12 by Yumiko Sr APRN) Cardiac arrest with ventricular fibrillation October 2024 Adrenal insufficiency Depression with anxiety Avoidant/restrictive food intake disorder Cannabis abuse Elevated LFTs Mitral valve prolapse Surgical History Surgical History History of percutaneous endoscopic gastrostomy Family History Family History Mother Heart attack Mitral valve prolapse Grandparent Cancer Grandparent Mitral valve prolapse Social History Social History Social History: Surrogate medical decision maker: Jorge Luis Centeno, significant other. Code status: Full code. Smoking packs per day: 0.3 Smoking cigarettes per day: 6.0 Years smoked: 19 Smoking pack-years: 5.70 Smoking status: Current every day smoker Tobacco type: cigarettes Alcohol intake: current Drinks per week: 4 Alcohol use details: States she drinks 1 pint a week Substance use: former Substance use type: marijuana Other substance usage details: weekly Last use: 10/31/23 Do You Feel Safe in your Home?: Yes Lack of Transportation: No Lack of Food: Never True Current Housing: I Have Housing Concerned About Future Housing: No Difficulty Paying Gas/Electric Bills: No Difficulty Paying for Meds: No Currently Unemployed: No Education: Associate Degree Difficulty w/ Childcare or Family Care: No Living arrangements: with family Additional living arrangements comments: with 7 year old son and fianc? Occupation/Education: unemployed Spiritual care concerns: No Agree to blood products: Yes Meds Home Medications and Allergies Home Medications ?Medication ?Instructions ?Recorded ?Confirmed ?Type ondansetron 8 mg disintegrating 8 mg PO Q8H PRN nausea and 02/08/24 01/08/25 Rx tablet vomiting #90 tabs ferrous sulfate 325 mg (65 mg 325 mg PO BID 03/28/24 01/08/25 History iron) tablet,delayed release folic acid 1 mg tablet 1 mg feeding tube DAILY 03/28/24 01/08/25 History megestrol 20 mg tablet 20 mg feeding tube QAM 03/28/24 01/08/25 History multivitamin with folic acid 400 1 tablet PO QAM 03/28/24 01/08/25 History mcg tablet (Thera) thiamine HCl (vitamin B1) 100 mg 100 mg feeding tube DAILY 03/28/24 01/08/25 History tablet vitamin B complex (Vitamins B 1 cap feeding tube QAM 03/28/24 01/08/25 History Complex capsule) lactose-reduced food with fiber See Rx Instructions .Route .COMPLEX 08/07/24 01/08/25 History 0.06 gram-1.5 kcal/mL oral liquid (Jevity 1.5 Chriss) magnesium sulfate 100 mg capsule 100 mg PO BID #60 caps 08/15/24 01/08/25 Rx metoclopramide HCl 10 mg tablet 10 mg PO Q6H nausea and vomiting 08/15/24 01/08/25 Rx (Reglan) #120 tabs potassium chloride 10 mEq 10 meq feeding tube DAILY #60 caps 08/15/24 01/08/25 Rx capsule,extended release buspirone 15 mg tablet 15 mg feeding tube TID 01/08/25 01/08/25 History cefadroxil 500 mg capsule 500 mg feeding tube Q12H 01/08/25 01/08/25 History cyanocobalamin (vitamin B-12) 1,000 mcg feeding tube MONTHLY 01/08/25 01/08/25 History 1,000 mcg tablet nicotine 14 mg/24 hr daily 1 patch transdermal Q24H 01/08/25 01/08/25 History transdermal patch olanzapine 5 mg tablet 5 mg feeding tube QPM 01/08/25 01/08/25 History oxycodone 5 mg tablet 5 mg feeding tube Q8H PRN pain 01/08/25 01/08/25 History Allergies Allergy/AdvReac Type Severity Reaction Status Date / Time latex Allergy Rash Verified 01/08/25 11:26 melatonin AdvReac Mild chest Verified 01/08/25 11:26 heaviness Vital Signs Vital Signs - 24 hr 01/08/25 07:06 01/08/25 07:22 01/08/25 07:22 Temperature 97.9 F Pulse Rate 101 H 92 98 Respiratory Rate 10 L Blood Pressure 130/93 H 112/79 123/84 Pulse Oximetry 100 01/08/25 07:24 01/08/25 09:00 01/08/25 09:30 Temperature 97.7 F 97.9 F Pulse Rate 109 H 93 92 Respiratory Rate 27 H 16 Blood Pressure 119/79 112/69 112/73 Pulse Oximetry 100 100 01/08/25 11:19 01/08/25 12:00 Temperature 98.1 F Pulse Rate 92 92 Respiratory Rate 18 Blood Pressure 129/72 Pulse Oximetry 98 Exam Const: General: comfortable and no acute distress Other: , female, chronically ill-appearing HENMT: Face/Nose/Sinus: Normal nares present Mouth: Yes moist mucous membranes Eyes: General: appearance normal, both eyes and all related structures Sclera: sclerae normal Pupils: Equal, round and reactive pupils present EOM: EOMs intact bilaterally Resp: Effort & Inspection: normal respiratory effort Auscultation: clear to auscultation bilaterally Cardio: Rate: regular rate Rhythm: regular rhythm Other: S1-S2 present without murmur, rub, ectopy GI: Other: Mild tenderness near PEG tube site, no other tenderness. Abdomen soft. Nondistended. Normoactive bowel sounds in all quadrants. Skin: General skin exam: normal color and no rashes or lesions noted Wounds: no wounds Neuro: Speech: normal speech Motor exam (neuro): 5/5 motor strength present throughout Sensory Exam: normal sensation Other: A&O x4. fine tremor to BUE, occurs with intention. Extrem: General: normal to inspection Psych: Mental Status: mental status grossly normal Affect: normal affect Other: Good insight and judgment, pleasant H&P: Results Labs Labs: Short CBC 01/08/25 Range/Units 07:15 WBC 5.9 (4.5-10.0) K/mm3 Hgb 14.2 (12.0-15.0) g/dL Hct 43.1 (37.0-47.0) % Plt Count 176 (150-375) k/mm3 BMP 01/08/25 07:15 Sodium 137 Potassium 3.7 Chloride 105 Carbon Dioxide 20 L BUN 12 Creatinine 0.67 L Glucose 112 H Calcium 9.0 Cardiac Enzymes 01/08/25 01/08/25 01/08/25 Range/Units 07:15 07:45 10:39 Troponin I < 0.012 < 0.012 < 0.012 (0.000-0.034) ng/mL Liver Function 01/08/25 Range/Units 07:15 Total Bilirubin 0.3 (0.2-1.3) mg/dL AST 65 H (14-36) U/L ALT 29 (6-35) U/L Alkaline Phosphatase 163 H (38-126) U/L Albumin 4.3 (3.5-5.1) g/dL Urine 01/08/25 Range/Units 07:51 Urine Color Dark yellow (Yellow) Urine Appearance Cloudy H (Clear) Urine pH 5.5 (5.0-9.0) Ur Specific Coila 1.026 (1.001-1.035) Urine Protein 1+ H (Negative) mg/dL Urine Glucose (UA) Negative (Negative) mg/dL Assessment and Plan Assessment and plan (1) Hypomagnesemia: Code(s): E83.42 - Hypomagnesemia Status: Acute Assessment and Plan: - Mag 1.4 - given 2G IVPB, goal greater than 2 - continue home med: Mag sulfate 100 mg BID - recheck this evening and monitor (2) Cardiac arrest with ventricular fibrillation: Code(s): I46.9 - Cardiac arrest, cause unspecified; I49.01 - Ventricular fibrillation Status: Resolved Assessment and Plan: - history of VFib arrest in October of 2024 - goal that time was for a K+ >4.0 and Mg >2.0. Potassium currently 3.7 and magnesium 1.4. Give KCl 20 mEq IVPB. Continue home PO KCL. Give Mag 2G IVPB. Continue home PO Mag. - monitor electrolytes closely - has been prescribed anticoagulation, however unable to fill due to cost. Currently waiting for approval from insurance. Given dizziness and inability to remain compliant to anticoagulation, will recheck echo. - telemetry monitoring (3) Avoidant/restrictive food intake disorder: Code(s): F50.82 - Avoidant/restrictive food intake disorder Status: Acute Assessment and Plan: - PEG tube in place for Jevity 1.5 b.i.d. as supplement calories to a regular diet - monitor electrolytes - patient feels her current diet regimen is covering her caloric needs, declined dietitian consult (4) UTI (urinary tract infection): Qualifiers: Hematuria presence: without hematuria Urinary tract infection type: acute cystitis Qualified Code(s): N30.00 - Acute cystitis without hematuria Code(s): N39.0 - Urinary tract infection, site not specified Status: Suspected Assessment and Plan: - UA: Cloudy, 1+ protein, 21-50 WBC, moderate epithelial cells, 1+ bacteria -> infection versus contaminant - UC pending - previous micro reviewed. Patient grew Klebsiella and E coli in July of 2024, resistant to Cipro/Levaquin with no further resistances. - started on Ceftriaxone on 01/08 Plan Diet: Jevity 1.5 Chriss 75 mL BID, Regular GI Prophylaxis: Not currently indicated DVT Prophylaxis: Lovenox SQ IV fluids: 1L bolus -> 125 mL/hour Lines/Tubes: Peripheral IV, PEG tube Code Status: Full code Quality VTE Prophylaxis VTE prophylaxis: pharmacologic ordered Hospitalist [facility] Advance Care Plan I have confirmed that the patient's Advanced Care Plan is present, code status is documented, or surrogate decision maker is listed in patient medical record.: Yes Medication Reconciliation I have utilized all available resources to obtain, update and review the patients current medications (includes all prescriptions, OTC, herbals, cannabis, and nutritional supplements).: Yes
[2025-01-08] MEDS: SODIUM CHLORIDE 0.9% IV 1,000 ML 125 ML IV CONT ×2 (14:29→22:56)
[2025-01-08] MEDS: oxyCODONE HCL (*CRX) 5 MG TAB IR FEED TUBE (14:45)
[2025-01-08] MEDS: NICOTINE (*PBKC) 14 MG PATCH 1 PATCH TRANSDERM (14:48)
[2025-01-08] MEDS: KCL 20 MEQ/SW 100 ML 100 ML 50 MEQ IVPB ×2 (14:54→22:52)
[2025-01-08] MEDS: busPIRone HCL 5 MG TABLET 15 MG FEED TUBE (17:59)
[2025-01-08] MEDS: FERROUS SULFATE 325 MG TABLET DR PO (18:03)
[2025-01-08 19:04] LABS: Anion Gap 8 mmol/L (4-12); Blood Urea Nitrogen 8 mg/dL (7-17); Calcium 8.3 mg/dL (8.4-10.2); Carbon Dioxide 19 mmol/L (22-30); Chloride 108 mmol/L (98-107); Estimated CRCL calculation 94 ml/min; Estimated Glomerular Filt Rate > 60; Glucose 114 mg/dL (65-110); Magnesium 2.1 mg/dL (1.6-2.3); Potassium 3.8 mmol/L (3.4-5.0); Sodium 135 mmol/L (137-145)
[2025-01-08] MEDS: MORPHINE SULFATE (*CRX) 2 MG/ML INJ IV PUSH (20:07)
[2025-01-08] MEDS: OLANZapine 5 MG TABLET FEED TUBE (20:17)
[2025-01-08] MEDS: MECLIZINE HCL 12.5 MG TABLET PO (20:17)
[2025-01-09] VITALS (10 sets, daily range): BP systolic 106–135; BP diastolic 67–75; PULSE 55–73; RESP 16–20; TEMP 35.8–36.6; O2SAT 98–100; BMI 21.3
[2025-01-09] MEDS: oxyCODONE HCL (*CRX) 5 MG TAB IR FEED TUBE ×2 (00:31→17:56)
[2025-01-09] MEDS: MORPHINE SULFATE (*CRX) 2 MG/ML INJ IV PUSH ×4 (01:35→20:52)
[2025-01-09 05:12] LABS: Basophils Percent Auto 0.7 % (0.2-1.2); Eosinophils Absolute Auto 0.1 K/mm3 (0-0.3); Eosinophils Percent Auto 1.4 % (0-4.4); Hematocrit 43.4 % (37.0-47.0); Hemoglobin 13.5 g/dL (12.0-15.0); Lymphocytes Absolute Auto 2.52 K/mm3 (0.9-3.2); Lymphocytes Percent Auto 60.9 % (18.3-44.2); Mean Corpuscular HGB Conc 31.1 g/dl (32-36); Mean Corpuscular Hemoglobin 32.5 pg (26-34); Mean Corpuscular Volume 104.6 fl (80-100); Monocytes Absolute Auto 0.2 K/mm3 (0.1-0.6); Monocytes Percent Auto 5.1 % (2.6-8.5); Neutrophils Absolute Auto 1.3 K/mm3 (1.3-6.7); Neutrophils Percent Auto 31.9 % (45.5-73.1); Platelet Count Result 130 k/mm3 (150-375); Red Blood Count 4.15 M/mm3 (4.2-5.4); Red Cell Distribution Width 13.4 % (11.5-14.5); White Blood Count 4.1 K/mm3 (4.5-10.0)
[2025-01-09 05:21] LABS: Alanine Aminotransferase 24 U/L (6-35); Albumin Level 3.6 g/dL (3.5-5.1); Alkaline Phosphatase 128 U/L (38-126); Anion Gap 8 mmol/L (4-12); Aspartate Amino Transferase 64 U/L (14-36); Bilirubin,Total 0.6 mg/dL (0.2-1.3); Blood Urea Nitrogen 4 mg/dL (7-17); Calcium 9.1 mg/dL (8.4-10.2); Carbon Dioxide 19 mmol/L (22-30); Chloride 110 mmol/L (98-107); Estimated CRCL calculation 91 ml/min; Estimated Glomerular Filt Rate > 60; Glucose 97 mg/dL (65-110); Potassium 4.5 mmol/L (3.4-5.0); Sodium 137 mmol/L (137-145); Total Protein 6.9 g/dL (6.3-8.2)
--- NOTE | 2025-01-09 06:00 | ECHO_ITS ---
Patient Info Name: Ester León Age: 34 years : 1990 Gender: Female Ht: 61 in Wt: 112 lbs BSA: 1.48 m2 HR: 66 bpm BP: 115 / 73 mmHg Technical Quality: Good Exam Date: 01/09/2025 10:13 AM Patient Status: I Admit Date: 01/08/2025 Exam Type: CA echo dop color flow w con Complete two-dimensional, color flow and Doppler transthoracic echocardiogram is performed with contrast to opacify the left ventricle and to improve the deliniation of the left ventricle endocardial borders. Staff Referring Physician: Braulio Wright MD Stone Driller Helper: Cristal Pedroza Attending Provider: Cayden Maldonado Contrast/Agitated Saline Contrast/Ag. Saline: Definity Amount: 4.00 ml Administered By: Cristal Pedroza Existing IV Access: Yes IV Access Condition: patent with no signs of infiltration Summary 1. Left ventricular chamber dimension is normal. 2. Left ventricular systolic function is normal, estimated at 60-65. 3. LV mass measuring 1.3cm x 0.7cm noted near the LV apex and septal wall. 4. Right ventricular systolic function is normal. 5. There is mild mitral valve regurgitation. Left Ventricle Left ventricular chamber dimension is normal. Left ventricular systolic function is normal, estimated at 60-65. There is no increased left ventricular wall thickness. LV mass measuring 1.3cm x 0.7cm noted near the LV apex and septal wall. Right Ventricle Right ventricular chamber dimension is normal. Right ventricular systolic function is normal. Left Atria Left atrial chamber dimension is normal. Right Atria Right atrial chamber dimension is normal. Atrial Septum Intact interatrial septum visualized by color flow imaging. Aortic Valve There is no aortic valve stenosis. There is no aortic valve regurgitation. Pulmonic Valve The pulmonic valve is not well visualized. There is trace pulmonic regurgitation. Mitral Valve There is mild mitral valve regurgitation. Tricuspid Valve There is trace tricuspid valve regurgitation. Pericardium/Pleural There is no pericardial effusion. Inferior Vena Cava Normal inferior vena cava with >50% collapse upon inspiration consistent with normal right atrial pressure, 3 mmHg. Aorta The aortic root size at the sinus of Valsalva is normal. Left Ventricular Outflow Tract Name Value Normal LVOT 2D LVOT Diameter 2.0 cm LVOT Doppler LVOT Peak Velocity 101 cm/s LVOT Peak Gradient 4 mmHg LVOT Mean Gradient 2 mmHg LVOT VTI 21 cm LVOT Stroke Volume 62 ml LVOT CO 4.1 l/min LVOT CI 2.8 l/min/m2 Pulmonic Valve Name Value Normal RVOT Doppler RVOT Peak Velocity 65 cm/s RVOT Peak Gradient 2 mmHg PV Doppler PV Peak Velocity 85 cm/s PV Peak Gradient 3 mmHg Mitral Valve Name Value Normal MV Diastolic Function MV E Peak Velocity 101 cm/s MV A Peak Velocity 68 cm/s MV E/A 1.5 MV Decel Time (PW) 214 ms MV Annular TDI MV E/e' (Septal) 9.2 MV E/e' (Lateral) 7.5 MV E/e' (Average) 8.4 Tricuspid Valve Name Value Normal Estimated PAP/RSVP RA Pressure 3 mmHg <=5 Aortic Valve Name Value Normal AV Doppler AV Peak Velocity 116 cm/s AV Peak Gradient 5 mmHg AV Area (Cont Eq Alvaro) 2.6 cm2 AV DI (Alvaro) 0.87 AV Regurgitation 2D LVOT Area 3.0 cm2 Ventricles Name Value Normal LV Dimensions 2D/MM IVS Diastolic Thickness (2D) 0.8 cm 0.6-1.0 LVID Diastole (2D) 4.3 cm 3.8-5.2 LVIW Diastolic Thickness (2D) 0.8 cm 0.6-0.9 LVID Systole (2D) 2.9 cm 2.2-3.5 LVOT Diameter 2.0 cm LV Mass (2D Cubed) 104.84 g 67.00-162.00 LV Mass Index (2D Cubed) 71 g/m2 43-95 Relative Wall Thickness (2D) 0.37 <=0.42 LV Fractional Shortening/Ejection Fraction 2D/MM LV Fractional Shortening (2D) 32 % 27-45 LV EF (2D Teichholz) 61 % LV Diastolic Volume (4C MOD) 58 ml LV EF (4C MOD) 67 % LV Diastolic Volume (2C MOD) 74 ml LV EF (2C MOD) 58 % LV Diastolic Volume (BP MOD) 66 ml 46-106 LV Diastolic Volume Index (BP MOD) 45 ml/m2 29-61 LV Systolic Volume (BP MOD) 24 ml 14-42 LV Systolic Volume Index (BP MOD) 16 ml/m2 8-24 LV EF (BP MOD) 63 % 54-74 LV Diastolic Length (4C) 6.6 cm LV Systolic Length (4C) 5.1 cm LV Stroke Volume (4C MOD) 39 ml Atria Name Value Normal LA Dimensions LA Volume (4C A-L) 26 ml LA Volume (BP A-L) 26 ml Report Signatures
[2025-01-09] MEDS: SODIUM CHLORIDE 0.9% IV 1,000 ML 125 ML IV CONT (06:15)
[2025-01-09 08:08] LABS: Phosphorus 4.3 mg/dL (2.5-4.5)
[2025-01-09] MEDS: VITAMIN B COMPLEX CAPSULE 1 CAP FEED TUBE (08:14)
[2025-01-09] MEDS: busPIRone HCL 5 MG TABLET 15 MG FEED TUBE ×3 (08:14→17:54)
[2025-01-09] MEDS: MECLIZINE HCL 12.5 MG TABLET PO ×4 (08:14→20:52)
[2025-01-09] MEDS: ENOXAPARIN 40 MG/0.4 ML SYRINGE SUB-Q (08:14)
[2025-01-09] MEDS: MULTIVITAMINS THERAPEUTIC TAB (*BKC) 1 TABLET PO (08:14)
[2025-01-09] MEDS: FERROUS SULFATE 325 MG TABLET DR PO ×2 (08:14→17:54)
[2025-01-09] MEDS: MEGESTROL ACETATE (*CHEMO) 20 MG TABLET FEED TUBE (08:14)
[2025-01-09] MEDS: THIAMINE HCL 100 MG TABLET FEED TUBE (08:14)
[2025-01-09] MEDS: POTASSIUM CHLORIDE 20 MEQ PACKET (FOR LIQUID) 10 MEQ FEED TUBE (08:14)
[2025-01-09] MEDS: FOLIC ACID 1 MG TABLET FEED TUBE (08:14)
[2025-01-09] MEDS: PERFLUTREN LIPID MICROSPHERES 1.5 ML VIAL DILUTED TO 10 ML TOTAL VOLUME IV PUSH (10:30)
--- NOTE | 2025-01-09 10:57 | IVDEFINITY ---
Prior to administration of IV Definity the patient was educated on the risks and benefits of the imaging enhancing agent including potential adverse side effects. The patient verbalized understanding. Allergies were verified. No exclusion criteria were identified and at least one of the following inclusion criteria were met: 1) physician request, 2) patient technically difficult to image (per the [place] [employer] guidelines of two or more segments not discernable within the apical view), or 3) questionable left ventricular function. ?
--- NOTE | 2025-01-09 12:34 | P.PNIM_ITS ---
Progress Note: A&P Assessment and Plan (1) Hypomagnesemia: Code(s): E83.42 - Hypomagnesemia Status: Acute Assessment and Plan: * Mag 2.1 after receiving 2 gram IVPB. * Goal greater than 2. * Continue home med: Mag sulfate 100 mg BID. * Trend level. (2) Cardiac arrest with ventricular fibrillation: Code(s): I46.9 - Cardiac arrest, cause unspecified; I49.01 - Ventricular fibrillation Status: Resolved Assessment and Plan: * history of VFib arrest in October of 2024. Patient is wearing a life vest. * goal that time was for a K+ >4.0 and Mg >2.0. Potassium currently 4.5 and magnesium 2.1. * Continue home Potassium 10 meq per tube daily. * Continue home PO Mag. * monitor electrolytes closely * has been prescribed anticoagulation, however unable to fill due to cost. Currently waiting for approval from insurance. Care coordination called pharmacy and patient is approved for 6 months of Xarelto. Will start Xarelto 20 mg PO daily. * Given dizziness and inability to remain compliant to anticoagulation, echo checked. * Echocardiogram showed: Summary 1. Left ventricular chamber dimension is normal. 2. Left ventricular systolic function is normal, estimated at 60-65. 3. LV mass measuring 1.3cm x 0.7cm noted near the LV apex and septal wall. 4. Right ventricular systolic function is normal. 5. There is mild mitral valve regurgitation. * Telemetry monitoring. * Cardiology consulted. (3) Avoidant/restrictive food intake disorder: Code(s): F50.82 - Avoidant/restrictive food intake disorder Status: Acute Assessment and Plan: * PEG tube in place for Jevity 1.5 b.i.d. as supplement calories to a regular diet. Currently not requiring tube feeds. Nutritional ice cream TID with meals. * monitor electrolytes * patient feels her current diet regimen is covering her caloric needs, dietitian consult today. (4) UTI (urinary tract infection): Qualifiers: Hematuria presence: without hematuria Urinary tract infection type: acute cystitis Qualified Code(s): N30.00 - Acute cystitis without hematuria Code(s): N39.0 - Urinary tract infection, site not specified Status: Suspected Assessment and Plan: * UA: Cloudy, 1+ protein, 21-50 WBC, moderate epithelial cells, 1+ bacteria -> infection versus contaminant * UC negative. * Previous micro reviewed. Patient grew Klebsiella and E coli in July of 2024, resistant to Cipro/Levaquin with no further resistances. * Stop Ceftriaxone. Subjective Date/time seen: 01/09/25 12:34 Interval history: Patient sitting up in bed. Patient denies chest pain, palpitations, shortness of breath, headache, or dizziness. Patient reports that she does have intermittent dizziness but denies at present. Patient reports that appetite is good but she does have nausea at times. Patient reports pain in bilateral back of legs and feet was an 8, constant, and aching. Review of Systems Review of Systems: All systems reviewed & are unremarkable except as noted in HPI and below Exam Const: General: no acute distress and uncomfortable Resp: Effort & Inspection: normal respiratory effort Auscultation: clear to auscultation bilaterally Cardio: Rate: regular rate Rhythm: regular rhythm Other: Telemetry- SR 72. Lifevest in place. GI: GI Palp: Yes Soft to palpation Auscultation: normal bowel sounds Other: Peg tube. Neuro: Speech: normal speech Extrem: General: no pedal edema Psych: Mental Status: mental status grossly normal Affect: normal affect Objective Data Vital Signs Vital Signs: Vital Signs - 24 hr 01/08/25 14:33 01/08/25 16:00 01/08/25 20:00 Temperature Pulse Rate 72 Respiratory Rate Blood Pressure 110/70 Pulse Oximetry Oxygen Delivery Room Air 01/08/25 20:00 01/08/25 20:28 01/08/25 21:24 Temperature 97.3 F L Pulse Rate 98 67 Respiratory Rate 20 Blood Pressure 111/70 Pulse Oximetry 98 98 Oxygen Delivery Room Air 01/09/25 00:00 01/09/25 04:00 01/09/25 04:35 Temperature 96.4 F L Pulse Rate 73 59 L 61 Respiratory Rate 16 Blood Pressure 115/73 Pulse Oximetry 98 Oxygen Delivery 01/09/25 08:00 01/09/25 08:00 Temperature Pulse Rate 73 Respiratory Rate Blood Pressure Pulse Oximetry Oxygen Delivery Room Air Intake/Output Intake/Output: Intake & Output 01/06/25 01/07/25 01/08/25 01/09/25 23:59 23:59 23:59 23:59 Intake Total 2320 1334.6 Balance 2320 1334.6 Meds/Results Medications: Active Medications Generic Name Dose Route Start Last Admin Trade Name Freq PRN Reason Stop Dose Admin Acetaminophen 650 mg 01/08/25 09:56 Acetaminophen 325 Mg Tablet PO Q4H PRN Mild Pain (1-3) or Fever Buspirone HCl 15 mg 01/08/25 17:00 01/09/25 08:14 Buspirone Hcl 5 Mg Tablet FEED TUBE 15 mg TID JU Administration Enoxaparin Sodium 40 mg 01/09/25 09:00 01/09/25 08:14 Enoxaparin 40 Mg/0.4 Ml Syringe SUB-Q 40 mg DAILY JU Administration Ferrous Sulfate 325 mg 01/08/25 17:00 01/09/25 08:14 Ferrous Sulfate [address] PO 325 mg BID JU Administration Folic Acid 1 mg 01/09/25 09:00 01/09/25 08:14 Folic Acid 1 Mg Tablet FEED TUBE 1 mg DAILY JU Administration Ceftriaxone Sodium 1 gm in 50 mls @ 100 mls/hr 01/09/25 09:00 01/09/25 08:13 Rocephin 1 Gm/Ns 50 Ml IVPB 100 mls/hr QAM JU Administration Sodium Chloride 1,000 mls @ 125 mls/hr 01/08/25 10:00 01/09/25 06:15 Normal Saline Iv IV CONT 125 mls/hr .Q8H JU Administration Meclizine HCl 12.5 mg 01/08/25 21:00 01/09/25 08:14 Meclizine Hcl 12.5 Mg Tablet PO 12.5 mg QID JU Administration Megestrol Acetate 20 mg 01/09/25 09:00 01/09/25 08:14 Megestrol Acetate (*Chemo) 20 Mg Tablet FEED TUBE 20 mg QAM JU Administration Metoclopramide HCl 10 mg 01/08/25 14:21 Metoclopramide Hcl 10 Mg Tablet PO Q6H PRN Nausea And Vomiting Miscellaneous Information 0 each 01/08/25 00:01 Magnesium Sulfate 100mg Nonform Can Pt Bring From Home, Hold While Here Or We Stock 200mg XX 02/07/25 00:00 CLARIFY [facility] Miscellaneous Information 0 each 01/08/25 00:01 Cefadroxil Nonform Can Pt Bring From Home? XX 02/07/25 00:00 CLARIFY JU Morphine Sulfate 2 mg 01/08/25 19:49 01/09/25 08:13 Morphine Sulfate (*Crx) 2 Mg/Ml Inj IV PUSH 2 mg Q4H PRN Administration Pain Rated 7-10 Multivitamins Therapeutic 1 tablet 01/09/25 09:00 01/09/25 08:14 Multivitamins Therapeutic Tab (*Bkc) PO 1 tablet QAM JU Administration Nicotine 1 patch 01/08/25 14:25 01/08/25 14:48 Nicotine (*Pbkc) 14 Mg Patch TRANSDERM 1 patch Q24H JU Administration Non-Formulary Medication 100 mg 01/08/25 17:00 Magnesium Sulfate PO 02/07/25 16:59 BID JU Olanzapine 5 mg 01/08/25 21:00 01/08/25 20:17 Olanzapine 5 Mg Tablet FEED TUBE 5 mg HS JU Administration Oxycodone HCl 5 mg 01/08/25 14:21 01/09/25 00:31 Oxycodone Hcl (*Crx) 5 Mg Tab Ir FEED TUBE 5 mg Q8H PRN Administration Pain Rated 4-6 Perflutren Lipid Microsphere 0 ml 01/09/25 10:57 Perflutren Lipid Microspheres 1.5 Ml Vial Diluted To 10 Ml Total Volume IV PUSH ONCE PRN adequate visualization Protocol Potassium Chloride 10 meq 01/09/25 09:00 01/09/25 08:14 Potassium Chloride 20 Meq Packet (For Liquid) FEED TUBE 10 meq DAILY JU Administration Thiamine HCl 100 mg 01/09/25 09:00 01/09/25 08:14 Thiamine Hcl 100 Mg Tablet FEED TUBE 100 mg DAILY JU Administration Vitamin B Complex 1 cap 01/09/25 09:00 01/09/25 08:14 Vitamin B Complex Capsule FEED TUBE 1 cap QAM JU Administration Radiology Results: ITS Impressions Chest/Abdomen/Pelvis CTA 01/08/25 08:27 IMPRESSION: CHEST: 1. No evidence of pulmonary embolism. 2. No acute cardiopulmonary pathology. 3. Right healing rib fractures. Healing fracture in the standard none. ABDOMEN/PELVIS: 1. No evidence of appendicitis, diverticulitis or intestinal obstruction. Chest X-Ray 01/08/25 08:52 IMPRESSION: No acute cardiopulmonary pathology. Labs Labs: Laboratory Results - last 24 hr 01/08/25 01/08/25 01/08/25 18:38 18:38 18:38 WBC RBC Hgb Hct MCV MCH MCHC RDW Plt Count MPV Immature Gran % (Auto) Neut % (Auto) Lymph % (Auto) [place] % (Auto) Eos % (Auto) Baso % (Auto) Lymph # (Auto) [place] # (Auto) Eos # (Auto) Baso # (Auto) Abs Immat Gran (auto) Absolute Neuts (auto) Absolute Nucleated RBC Nucleated RBC % Sodium 135 L Cancelled Potassium 3.8 Cancelled Chloride 108 H Carbon Dioxide Anion Gap BUN Creatinine Estim Creat Clear Calc Estimated GFR Glucose Calcium Phosphorus Magnesium Total Bilirubin AST ALT Alkaline Phosphatase Total Protein Albumin 01/08/25 01/08/25 01/08/25 18:38 18:38 18:38 WBC RBC Hgb Hct MCV MCH MCHC RDW Plt Count MPV Immature Gran % (Auto) Neut % (Auto) Lymph % (Auto) [place] % (Auto) Eos % (Auto) Baso % (Auto) Lymph # (Auto) [place] # (Auto) Eos # (Auto) Baso # (Auto) Abs Immat Gran (auto) Absolute Neuts (auto) Absolute Nucleated RBC Nucleated RBC % Sodium Potassium Chloride Cancelled Carbon Dioxide 19 L Cancelled Anion Gap 8 Cancelled BUN 8 Creatinine Estim Creat Clear Calc Estimated GFR Glucose Calcium Phosphorus Magnesium Total Bilirubin AST ALT Alkaline Phosphatase Total Protein Albumin 01/08/25 01/08/25 01/08/25 18:38 18:38 18:38 WBC RBC Hgb Hct MCV MCH MCHC RDW Plt Count MPV Immature Gran % (Auto) Neut % (Auto) Lymph % (Auto) [place] % (Auto) Eos % (Auto) Baso % (Auto) Lymph # (Auto) [place] # (Auto) Eos # (Auto) Baso # (Auto) Abs Immat Gran (auto) Absolute Neuts (auto) Absolute Nucleated RBC Nucleated RBC % Sodium Potassium Chloride Carbon Dioxide Anion Gap BUN Cancelled Creatinine 0.54 L Cancelled Estim Creat Clear Calc 94 Cancelled Estimated GFR > 60 Glucose Calcium Phosphorus Magnesium Total Bilirubin AST ALT Alkaline Phosphatase Total Protein Albumin 01/08/25 01/08/25 01/08/25 18:38 18:38 18:38 WBC RBC Hgb Hct MCV MCH MCHC RDW Plt Count MPV Immature Gran % (Auto) Neut % (Auto) Lymph % (Auto) [place] % (Auto) Eos % (Auto) Baso % (Auto) Lymph # (Auto) [place] # (Auto) Eos # (Auto) Baso # (Auto) Abs Immat Gran (auto) Absolute Neuts (auto) Absolute Nucleated RBC Nucleated RBC % Sodium Potassium Chloride Carbon Dioxide Anion Gap BUN Creatinine Estim Creat Clear Calc Estimated GFR Cancelled Glucose 114 H Cancelled Calcium 8.3 L Cancelled Phosphorus Magnesium 2.1 Total Bilirubin AST ALT Alkaline Phosphatase Total Protein Albumin 01/09/25 01/09/25 04:28 04:39 WBC 4.1 L RBC 4.15 L Hgb 13.5 Hct 43.4 MCV 104.6 H D MCH 32.5 MCHC 31.1 L RDW 13.4 Plt Count 130 L MPV 10.0 Immature Gran % (Auto) 0.0 Neut % (Auto) 31.9 L Lymph % (Auto) 60.9 H [place] % (Auto) 5.1 Eos % (Auto) 1.4 Baso % (Auto) 0.7 Lymph # (Auto) 2.52 [place] # (Auto) 0.2 Eos # (Auto) 0.1 Baso # (Auto) 0.0 Abs Immat Gran (auto) 0.00 Absolute Neuts (auto) 1.3 Absolute Nucleated RBC 0.000 Nucleated RBC % 0.0 Sodium 137 Potassium 4.5 Chloride 110 H Carbon Dioxide 19 L Anion Gap 8 BUN 4 L Creatinine 0.56 L Estim Creat Clear Calc 91 Estimated GFR > 60 Glucose 97 Calcium 9.1 Phosphorus 4.3 Magnesium 2.0 Total Bilirubin 0.6 AST 64 H ALT 24 Alkaline Phosphatase 128 H Total Protein 6.9 Albumin 3.6 Quality VTE Prophylaxis VTE prophylaxis: pharmacologic ordered
--- NOTE | 2025-01-09 15:01 | P.CONCA_ITS ---
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 Initially patient was at [facility] [place] ED in October when she went into VT/VF cardiac arrest, [place]ors[place]. Was stabilized in our ED and then transferred to [facility]. Records from [facility] were personally reviewed. She was also treated for MSSA bacteremia. Electrophysiology was consulted during that hospitalization for long QT. She was discharged with a Kestra vest. Echocardiogram showed an LV mass. Subsequently a cardiac MRI was obtained, but unable to delineate the mass on cardiac MRI. Repeat echocardiogram later on during the hospitalization showed stable mass. Since mass could potentially be thrombus, she was discharged on anticoagulation, but has not been taking that due to cost issues. Initially discharged on Eliquis, but this was then changed to Xarelto. Echocardiogram this admission shows normal LVEF, LV mass measuring 1.3cm x 0.7cm noted near the LV apex and septal wall. I personally reviewed the echocardiogram from [facility] from 11/2024 and echo findings are stable, and unchanged compared to the echo done at [facility]. Recommend to resume anticoagulation with Xarelto 20mg once daily. If NOACs are cost-prohibitive, then would recommend Warfarin. Patient already has follow up with [facility] scheduled on 01/[address] [facility] [address] [facility] on 01/15. Patient to follow up as scheduled. Does not need additional cardiac testing or workup at this time. Cardiology will sign off. 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 Initially patient was at [facility] [place] ED in October when she went into VT/VF cardiac arrest, Torsades. Was stabilized in our ED and then transferred to [facility]. Records from [facility] were personally reviewed. She was also treated for MSSA bacteremia. Electrophysiology was consulted during that hospitalization for long QT. She was discharged with a Kestra vest. Echocardiogram showed an LV mass. Subsequently a cardiac MRI was obtained, but unable to delineate the mass on cardiac MRI. Repeat echocardiogram later on during the hospitalization showed stable mass. Since mass could potentially be thrombus, she was discharged on anticoagulation, but has not been taking that due to cost issues. Initially discharged on Eliquis, but this was then changed to Xarelto. She presented to [facility] on 01/08 for dizziness, shakiness. Being treated for a UTI. She reports feeling well today. Review of Systems 2 Review of Systems: All systems reviewed & are unremarkable except as noted in HPI and below (HPI) [facility] Past Medical History Medical History Cardiac arrest with ventricular fibrillation October 2024 Adrenal insufficiency Depression with anxiety Avoidant/restrictive food intake disorder Cannabis abuse Elevated LFTs Mitral valve prolapse Surgical History Surgical History History of percutaneous endoscopic gastrostomy Family History Family History Mother Heart attack Mitral valve prolapse Grandparent Cancer Grandparent Mitral valve prolapse Social History Social History Social History: Surrogate medical decision maker: Jorge Luis Centeno, significant other. Code status: Full code. Smoking packs per day: 0.3 Smoking cigarettes per day: 6.0 Years smoked: 19 Smoking pack-years: 5.70 Smoking status: Current every day smoker Tobacco type: cigarettes Alcohol intake: current Drinks per week: 4 Alcohol use details: States she drinks 1 pint a week Substance use: former Substance use type: marijuana Other substance usage details: weekly Last use: 10/31/23 Do You Feel Safe in your Home?: Yes Lack of Transportation: No Lack of Food: Never True Current Housing: I Have Housing Concerned About Future Housing: No Difficulty Paying Gas/Electric Bills: No Difficulty Paying for Meds: No Currently Unemployed: No Education: Associate Degree Difficulty w/ Childcare or Family Care: No Living arrangements: with family Additional living arrangements comments: with 7 year old son and fianc? Occupation/Education: unemployed Spiritual care concerns: No Agree to blood products: Yes Meds Home Medications and Allergies Home Medications ?Medication ?Instructions ?Recorded ?Confirmed ?Type ondansetron 8 mg disintegrating 8 mg PO Q8H PRN nausea and 02/08/24 01/08/25 Rx tablet vomiting #90 tabs ferrous sulfate 325 mg (65 mg 325 mg PO BID 03/28/24 01/08/25 History iron) tablet,delayed release folic acid 1 mg tablet 1 mg feeding tube DAILY 03/28/24 01/08/25 History megestrol 20 mg tablet 20 mg feeding tube QAM 03/28/24 01/08/25 History multivitamin with folic acid 400 1 tablet PO QAM 03/28/24 01/08/25 History mcg tablet (Thera) thiamine HCl (vitamin B1) 100 mg 100 mg feeding tube DAILY 03/28/24 01/08/25 History tablet vitamin B complex (Vitamins B 1 cap feeding tube QAM 03/28/24 01/08/25 History Complex capsule) lactose-reduced food with fiber See Rx Instructions .Route .COMPLEX 08/07/24 01/08/25 History 0.06 gram-1.5 kcal/mL oral liquid (Jevity 1.5 Chriss) magnesium sulfate 100 mg capsule 100 mg PO BID #60 caps 08/15/24 01/08/25 Rx metoclopramide HCl 10 mg tablet 10 mg PO Q6H nausea and vomiting 08/15/24 01/08/25 Rx (Reglan) #120 tabs potassium chloride 10 mEq 10 meq feeding tube DAILY #60 caps 08/15/24 01/08/25 Rx capsule,extended release buspirone 15 mg tablet 15 mg feeding tube TID 01/08/25 01/08/25 History cefadroxil 500 mg capsule 500 mg feeding tube Q12H 01/08/25 01/08/25 History cyanocobalamin (vitamin B-12) 1,000 mcg feeding tube MONTHLY 01/08/25 01/08/25 History 1,000 mcg tablet nicotine 14 mg/24 hr daily 1 patch transdermal Q24H 01/08/25 01/08/25 History transdermal patch olanzapine 5 mg tablet 5 mg feeding tube QPM 01/08/25 01/08/25 History oxycodone 5 mg tablet 5 mg feeding tube Q8H PRN pain 01/08/25 01/08/25 History Allergies Allergy/AdvReac Type Severity Reaction Status Date / Time latex Allergy Rash Verified 01/08/25 11:26 melatonin AdvReac Mild chest Verified 01/08/25 11:26 heaviness Vital Signs Vital Signs - 24 hr 01/08/25 16:00 01/08/25 20:00 01/08/25 20:00 Temperature Pulse Rate 72 98 Respiratory Rate Blood Pressure Pulse Oximetry Oxygen Delivery Room Air 01/08/25 20:28 01/08/25 21:24 01/09/25 00:00 Temperature 36.3 C L Pulse Rate 67 73 Respiratory Rate 20 Blood Pressure 111/70 Pulse Oximetry 98 98 Oxygen Delivery Room Air 01/09/25 04:00 01/09/25 04:35 01/09/25 08:00 Temperature 35.8 C L Pulse Rate 59 L 61 73 Respiratory Rate 16 Blood Pressure 115/73 Pulse Oximetry 98 Oxygen Delivery 01/09/25 08:00 Temperature Pulse Rate Respiratory Rate Blood Pressure Pulse Oximetry Oxygen Delivery Room Air Exam 2 Const: General: no acute distress HENMT: Mouth: Yes moist mucous membranes Eyes: General: appearance normal, both eyes and all related structures S clera: sclerae normal Resp: Effort & Inspection: normal respiratory effort Cardio: Rate: regular rate Rhythm: regular rhythm Heart sounds: no murmurs Skin: General skin exam: normal color Neuro: Speech: normal speech Psych: Mental Status: mental status grossly normal Affect: normal affect Results Labs and Meds 01/09/25 04:39 01/09/25 04:39 Lab results: Cardiac Enzymes 01/09/25 Range/Units 04:39 AST 64 H (14-36) U/L CBC 01/09/25 Range/Units 04:39 WBC 4.1 L (4.5-10.0) K/mm3 RBC 4.15 L (4.2-5.4) M/mm3 Hgb 13.5 (12.0-15.0) g/dL Hct 43.4 (37.0-47.0) % Plt Count 130 L (150-375) k/mm3 Lymph # (Auto) 2.52 (0.9-3.2) K/mm3 [place] # (Auto) 0.2 (0.1-0.6) K/mm3 Eos # (Auto) 0.1 (0-0.3) K/mm3 Baso # (Auto) 0.0 (0.0-0.1) K/mm3 Comprehensive Metabolic Panel 01/08/25 01/08/25 01/08/25 Range/Units 18:38 18:38 18:38 Sodium 135 L Cancelled (137-145) mmol/L Potassium 3.8 Cancelled (3.4-5.0) mmol/L Chloride 108 H (98-107) mmol/L Carbon Dioxide (22-30) mmol/L BUN (7-17) mg/dL Creatinine (0.7-1.0) mg/dL Glucose (65-110) mg/dL Calcium (8.4-10.2) mg/dL AST (14-36) U/L ALT (6-35) U/L Alkaline Phosphatase (38-126) U/L Total Protein (6.3-8.2) g/dL Albumin (3.5-5.1) g/dL 01/08/25 01/08/25 01/08/25 Range/Units 18:38 18:38 18:38 Sodium (137-145) mmol/L Potassium (3.4-5.0) mmol/L Chloride Cancelled (98-107) mmol/L Carbon Dioxide 19 L Cancelled (22-30) mmol/L BUN 8 Cancelled (7-17) mg/dL Creatinine 0.54 L (0.7-1.0) mg/dL Glucose (65-110) mg/dL Calcium (8.4-10.2) mg/dL AST (14-36) U/L ALT (6-35) U/L Alkaline Phosphatase (38-126) U/L Total Protein (6.3-8.2) g/dL Albumin (3.5-5.1) g/dL 01/08/25 01/08/25 01/08/25 Range/Units 18:38 18:38 18:38 Sodium (137-145) mmol/L Potassium (3.4-5.0) mmol/L Chloride (98-107) mmol/L Carbon Dioxide (22-30) mmol/L BUN (7-17) mg/dL Creatinine Cancelled (0.7-1.0) mg/dL Glucose 114 H Cancelled (65-110) mg/dL Calcium 8.3 L Cancelled (8.4-10.2) mg/dL AST (14-36) U/L ALT (6-35) U/L Alkaline Phosphatase (38-126) U/L Total Protein (6.3-8.2) g/dL Albumin (3.5-5.1) g/dL 01/09/25 Range/Units 04:39 Sodium 137 (137-145) mmol/L Potassium 4.5 (3.4-5.0) mmol/L Chloride 110 H (98-107) mmol/L Carbon Dioxide 19 L (22-30) mmol/L BUN 4 L (7-17) mg/dL Creatinine 0.56 L (0.7-1.0) mg/dL Glucose 97 (65-110) mg/dL Calcium 9.1 (8.4-10.2) mg/dL AST 64 H (14-36) U/L ALT 24 (6-35) U/L Alkaline Phosphatase 128 H (38-126) U/L Total Protein 6.9 (6.3-8.2) g/dL Albumin 3.6 (3.5-5.1) g/dL Intake and Output 01/08/25 01/09/25 01/09/25 23:59 07:59 15:59 Intake Total 1100 1214.6 120 Balance 1100 1214.6 120 Intake: IV 1000 914.6 Sodium Chloride 0.9% IV 1,000 1000 914.6 ml @ 125 mls/hr IV CONT .Q8H [facility] Rx#:[id number] Oral 100 300 120 Other: # Unmeasured Voids 3 3 Number of Bowel Movements Today 1
[2025-01-09] MEDS: NICOTINE (*PBKC) 14 MG PATCH 1 PATCH TRANSDERM (15:14)
[2025-01-09] MEDS: RIVAROXABAN 20 MG TABLET PO (15:14)
[2025-01-09] MEDS: SODIUM CHLORIDE 0.9% IV 1,000 ML 75 ML IV CONT (17:53)
--- NOTE | 2025-01-09 19:25 | PC.NURSE ---
Pt is supposed to wear a life vest. Pt informed me that the life vest was , therefore I asked the pt if someone could bring up the retail management keyholder for it and emphasized and educated the importance of having it charged. Pt said there was no one that could bring up retail management keyholder. Will continue to educate pt.
[2025-01-09] MEDS: OLANZapine 5 MG TABLET FEED TUBE (20:52)
[2025-01-10] VITALS (13 sets, daily range): BP systolic 101–127; BP diastolic 55–73; PULSE 60–102; RESP 14–20; TEMP 36.4–37.2; O2SAT 99–100
[2025-01-10] MEDS: MORPHINE SULFATE (*CRX) 2 MG/ML INJ IV PUSH ×5 (02:08→21:27)
--- NOTE | 2025-01-10 03:16 | PC.NURSE ---
DISCUSSED WITH PT THAT IF NOT DISCHARGED IN AM SHE NEEDS TO HAVE SOMEONE BRING LIFE [employer] IN
[2025-01-10 05:49] LABS: Alanine Aminotransferase 26 U/L (6-35); Albumin Level 3.1 g/dL (3.5-5.1); Alkaline Phosphatase 109 U/L (38-126); Anion Gap 7 mmol/L (4-12); Aspartate Amino Transferase 54 U/L (14-36); Bilirubin,Total 0.2 mg/dL (0.2-1.3); Blood Urea Nitrogen 3 mg/dL (7-17); Calcium 8.7 mg/dL (8.4-10.2); Carbon Dioxide 21 mmol/L (22-30); Chloride 110 mmol/L (98-107); Estimated CRCL calculation 94 ml/min; Estimated Glomerular Filt Rate > 60; Glucose 89 mg/dL (65-110); Magnesium 1.7 mg/dL (1.6-2.3); Phosphorus 4.7 mg/dL (2.5-4.5); Potassium 3.8 mmol/L (3.4-5.0); Sodium 138 mmol/L (137-145)
[2025-01-10] MEDS: SODIUM CHLORIDE 0.9% IV 1,000 ML 75 ML IV CONT ×2 (08:02→21:27)
[2025-01-10] MEDS: THIAMINE HCL 100 MG TABLET FEED TUBE (08:03)
[2025-01-10] MEDS: FERROUS SULFATE 325 MG TABLET DR PO ×2 (08:03→17:22)
[2025-01-10] MEDS: busPIRone HCL 5 MG TABLET 15 MG FEED TUBE ×3 (08:03→17:22)
[2025-01-10] MEDS: MECLIZINE HCL 12.5 MG TABLET PO ×4 (08:04→21:18)
[2025-01-10] MEDS: VITAMIN B COMPLEX CAPSULE 1 CAP FEED TUBE (08:04)
[2025-01-10] MEDS: MULTIVITAMINS THERAPEUTIC TAB (*BKC) 1 TABLET PO (08:04)
[2025-01-10] MEDS: MEGESTROL ACETATE (*CHEMO) 20 MG TABLET FEED TUBE (08:04)
[2025-01-10] MEDS: POTASSIUM CHLORIDE 20 MEQ PACKET (FOR LIQUID) 10 MEQ FEED TUBE (08:04)
[2025-01-10] MEDS: FOLIC ACID 1 MG TABLET FEED TUBE (08:04)
[2025-01-10] MEDS: MAGNESIUM OXIDE 400 MG TABLET PO (08:04)
[2025-01-10] MEDS: CEPHALEXIN 500 MG CAPSULE PO ×3 (08:24→17:22)
[2025-01-10] MEDS: MAGNESIUM SULF 1 GM/D5W 100 ML 1 GM/100 ML BAG IVPB (09:33)
--- NOTE | 2025-01-10 11:29 | P.PNIM_ITS ---
Progress Note: A&P Assessment and Plan (1) Hypomagnesemia: Code(s): E83.42 - Hypomagnesemia Status: Acute Assessment and Plan: * Mag 1.7. Patient given Magnesium Sulfate 1 gram IVPB x 1. * Goal greater than 2. * Continue home med: Mag sulfate 100 mg BID. * Trend level. (2) Cardiac arrest with ventricular fibrillation: Code(s): I46.9 - Cardiac arrest, cause unspecified; I49.01 - Ventricular fibrillation Status: Resolved Assessment and Plan: * history of VFib arrest in October of 2024. Patient is wearing a life vest. * goal that time was for a K+ >4.0 and Mg >2.0. Potassium currently 3.8 and magnesium 1.7. * Continue home Potassium 10 meq per tube daily. * Continue home PO Mag. * monitor electrolytes closely * has been prescribed anticoagulation, however unable to fill due to cost. Currently waiting for approval from insurance. Care coordination called pharmacy and patient is approved for 6 months of Xarelto. Xarelto 20 mg PO daily. * Given dizziness and inability to remain compliant to anticoagulation, echo checked. * Echocardiogram showed: Summary 1. Left ventricular chamber dimension is normal. 2. Left ventricular systolic function is normal, estimated at 60-65. 3. LV mass measuring 1.3cm x 0.7cm noted near the LV apex and septal wall. 4. Right ventricular systolic function is normal. 5. There is mild mitral valve regurgitation. * Telemetry monitoring. * Cardiology consulted, appreciate recommendations. * Orthostatics: sitting BP 116/64 HR 75, Standing BP 105/67 HR 99, and supine BP 101/55 HR 62. (3) Avoidant/restrictive food intake disorder: Code(s): F50.82 - Avoidant/restrictive food intake disorder Status: Acute Assessment and Plan: * PEG tube in place for Jevity 1.5 b.i.d. as supplement calories to a regular diet. Currently not requiring tube feeds. Nutritional ice cream TID with meals. * monitor electrolytes * patient feels her current diet regimen is covering her caloric needs, dietitian consult today. (4) UTI (urinary tract infection): Qualifiers: Hematuria presence: without hematuria Urinary tract infection type: acute cystitis Qualified Code(s): N30.00 - Acute cystitis without hematuria Code(s): N39.0 - Urinary tract infection, site not specified Status: Suspected Assessment and Plan: * UA: Cloudy, 1+ protein, 21-50 WBC, moderate epithelial cells, 1+ bacteria -> infection versus contaminant * UC negative. * Previous micro reviewed. Patient grew Klebsiella and E coli in July of 2024, resistant to Cipro/Levaquin with no further resistances. * Stop Ceftriaxone. Subjective Date/time seen: 01/10/25 11:29 Interval history: Patient sitting up in bed. Patient denies chest pain, palpitations, or shortness of breath. Patient reports intermittent dizziness. Patient reports a headache that is a 4, frequent, and aching. Patient reports that appetite is good but she does have nausea at times. Patient reports pain in bilateral back of legs and feet was an 7, constant, and aching. Review of Systems Review of Systems: All systems reviewed & are unremarkable except as noted in HPI and below Exam Const: General: no acute distress and uncomfortable Resp: Effort & Inspection: normal respiratory effort Auscultation: clear to auscultation bilaterally Cardio: Rate: regular rate Rhythm: regular rhythm Other: Telemetry- SR 69 GI: GI Palp: Yes Soft to palpation Auscultation: normal bowel sounds Neuro: Speech: normal speech Extrem: General: no pedal edema Psych: Mental Status: mental status grossly normal Affect: normal affect Objective Data Vital Signs Vital Signs: Vital Signs - 24 hr 01/09/25 12:00 01/09/25 14:00 01/09/25 16:00 Temperature 97.8 F Pulse Rate 73 69 70 Respiratory Rate 20 Blood Pressure 106/67 Pulse Oximetry 100 Oxygen Delivery 01/09/25 20:00 01/09/25 20:46 01/09/25 22:00 Temperature 97.6 F 97.3 F L Pulse Rate 62 65 55 L Respiratory Rate 16 16 Blood Pressure 117/68 135/75 Pulse Oximetry 100 100 Oxygen Delivery 01/10/25 00:00 01/10/25 04:00 01/10/25 05:29 Temperature 97.5 F L Pulse Rate 77 102 H 60 Respiratory Rate 16 Blood Pressure 127/73 Pulse Oximetry 100 Oxygen Delivery 01/10/25 08:00 01/10/25 08:00 Temperature Pulse Rate 74 Respiratory Rate Blood Pressure Pulse Oximetry Oxygen Delivery Room Air Intake/Output Intake/Output: Intake & Output 01/07/25 01/08/25 01/09/25 01/10/25 23:59 23:59 23:59 23:59 Intake Total 2320 3034.6 1520 Balance 2320 3034.6 1520 Meds/Results Medications: Active Medications Generic Name Dose Route Start Last Admin Trade Name Freq PRN Reason Stop Dose Admin Acetaminophen 650 mg 01/08/25 09:56 Acetaminophen 325 Mg Tablet PO Q4H PRN Mild Pain (1-3) or Fever Buspirone HCl 15 mg 01/08/25 17:00 01/10/25 08:03 Buspirone Hcl 5 Mg Tablet FEED TUBE 15 mg TID JU Administration Cephalexin HCl 500 mg 01/10/25 09:00 01/10/25 08:24 Cephalexin 500 Mg Capsule PO 500 mg Q6HR JU Administration Ferrous Sulfate 325 mg 01/08/25 17:00 01/10/25 08:03 Ferrous Sulfate [address] PO 325 mg BID JU Administration Folic Acid 1 mg 01/09/25 09:00 01/10/25 08:04 Folic Acid 1 Mg Tablet FEED TUBE 1 mg DAILY JU Administration Sodium Chloride 1,000 mls @ 75 mls/hr 01/08/25 10:00 01/10/25 08:02 Normal Saline Iv IV CONT 75 mls/hr .[id number] JU Administration Magnesium Oxide 400 mg 01/10/25 09:00 01/10/25 08:04 Magnesium Oxide 400 Mg Tablet PO 400 mg DAILY JU Administration Meclizine HCl 12.5 mg 01/08/25 21:00 01/10/25 08:04 Meclizine Hcl 12.5 Mg Tablet PO 12.5 mg QID JU Administration Megestrol Acetate 20 mg 01/09/25 09:00 01/10/25 08:04 Megestrol Acetate (*Chemo) 20 Mg Tablet FEED TUBE 20 mg QAM JU Administration Metoclopramide HCl 10 mg 01/08/25 14:21 Metoclopramide Hcl 10 Mg Tablet PO Q6H PRN Nausea And Vomiting Morphine Sulfate 2 mg 01/08/25 19:49 01/10/25 08:02 Morphine Sulfate (*Crx) 2 Mg/Ml Inj IV PUSH 2 mg Q4H PRN Administration Pain Rated 7-10 Multivitamins Therapeutic 1 tablet 01/09/25 09:00 01/10/25 08:04 Multivitamins Therapeutic Tab (*Bkc) PO 1 tablet QAM JU Administration Nicotine 1 patch 01/08/25 14:25 01/09/25 15:14 Nicotine (*Pbkc) 14 Mg Patch TRANSDERM 1 patch Q24H JU Administration Olanzapine 5 mg 01/08/25 21:00 01/09/25 20:52 Olanzapine 5 Mg Tablet FEED TUBE 5 mg HS JU Administration Oxycodone HCl 5 mg 01/08/25 14:21 01/09/25 17:56 Oxycodone Hcl (*Crx) 5 Mg Tab Ir FEED TUBE 5 mg Q8H PRN Administration Pain Rated 4-6 Perflutren Lipid Microsphere 0 ml 01/09/25 10:57 Perflutren Lipid Microspheres 1.5 Ml Vial Diluted To 10 Ml Total Volume IV PUSH ONCE PRN adequate visualization Protocol Potassium Chloride 10 meq 01/09/25 09:00 01/10/25 08:04 Potassium Chloride 20 Meq Packet (For Liquid) FEED TUBE 10 meq DAILY JU Administration Rivaroxaban 20 mg 01/09/25 13:35 01/09/25 15:14 Rivaroxaban 20 Mg Tablet PO 20 mg DAILY@1700 JU Administration Thiamine HCl 100 mg 01/09/25 09:00 01/10/25 08:03 Thiamine Hcl 100 Mg Tablet FEED TUBE 100 mg DAILY JU Administration Vitamin B Complex 1 cap 01/09/25 09:00 01/10/25 08:04 Vitamin B Complex Capsule FEED TUBE 1 cap QAM JU Administration Radiology Results: ITS Impressions Chest/Abdomen/Pelvis CTA 01/08/25 08:27 IMPRESSION: CHEST: 1. No evidence of pulmonary embolism. 2. No acute cardiopulmonary pathology. 3. Right healing rib fractures. Healing fracture in the standard none. ABDOMEN/PELVIS: 1. No evidence of appendicitis, diverticulitis or intestinal obstruction. Chest X-Ray 01/08/25 08:52 IMPRESSION: No acute cardiopulmonary pathology. Labs Labs: Laboratory Results - last 24 hr 01/10/25 04:28 Sodium 138 Potassium 3.8 Chloride 110 H Carbon Dioxide 21 L Anion Gap 7 BUN 3 L Creatinine 0.54 L Estim Creat Clear Calc 94 Estimated GFR > 60 Glucose 89 Calcium 8.7 Phosphorus 4.7 H Magnesium 1.7 Total Bilirubin 0.2 AST 54 H ALT 26 Alkaline Phosphatase 109 Total Protein 6.0 L Albumin 3.1 L Quality VTE Prophylaxis VTE prophylaxis: pharmacologic ordered
[2025-01-10] MEDS: NICOTINE (*PBKC) 14 MG PATCH 1 PATCH TRANSDERM (13:59)
[2025-01-10] MEDS: RIVAROXABAN 20 MG TABLET PO (17:22)
[2025-01-10] MEDS: NEOMYCIN/POLYMYXIN/BACITRACIN OINTMENT PACKET 1 PACKET (17:34)
[2025-01-10] MEDS: OLANZapine 5 MG TABLET FEED TUBE (21:18)
[2025-01-11] VITALS (9 sets, daily range): BP systolic 111–126; BP diastolic 63–72; PULSE 66–91; RESP 16–20; TEMP 36.6–36.8; O2SAT 95–100
[2025-01-11] MEDS: CEPHALEXIN 500 MG CAPSULE PO ×2 (00:30→06:03)
[2025-01-11] MEDS: MORPHINE SULFATE (*CRX) 2 MG/ML INJ IV PUSH ×5 (01:45→20:40)
[2025-01-11 05:16] LABS: Alanine Aminotransferase 32 U/L (6-35); Albumin Level 3.1 g/dL (3.5-5.1); Alkaline Phosphatase 110 U/L (38-126); Anion Gap 7 mmol/L (4-12); Aspartate Amino Transferase 68 U/L (14-36); Bilirubin,Total 0.2 mg/dL (0.2-1.3); Blood Urea Nitrogen 6 mg/dL (7-17); Carbon Dioxide 20 mmol/L (22-30); Chloride 110 mmol/L (98-107); Estimated CRCL calculation 94 ml/min; Estimated Glomerular Filt Rate > 60; Glucose 114 mg/dL (65-110); Magnesium 1.9 mg/dL (1.6-2.3); Phosphorus 4.9 mg/dL (2.5-4.5); Sodium 137 mmol/L (137-145); Total Protein 6.1 g/dL (6.3-8.2)
--- NOTE | 2025-01-11 05:31 | PC.NURSE ---
COMPUTER DOWN TIME FROM [id number].MORPHINE 2MG GIVEN IVP AT 0145
[2025-01-11 07:48] LABS: Basophils Percent Auto 0.9 % (0.2-1.2); Eosinophils Absolute Auto 0.1 K/mm3 (0-0.3); Eosinophils Percent Auto 2.5 % (0-4.4); Hematocrit 38.4 % (37.0-47.0); Immature Granulocyte Absolute 0.01 K/mm3 (0.00-0.031); Immature Granulocyte Percent A 0.2 % (0-0.5); Lymphocytes Absolute Auto 2.32 K/mm3 (0.9-3.2); Lymphocytes Percent Auto 51.8 % (18.3-44.2); Mean Corpuscular HGB Conc 31.3 g/dl (32-36); Mean Corpuscular Hemoglobin 32.5 pg (26-34); Mean Corpuscular Volume 104.1 fl (80-100); Monocytes Absolute Auto 0.3 K/mm3 (0.1-0.6); Monocytes Percent Auto 6.9 % (2.6-8.5); Neutrophils Absolute Auto 1.7 K/mm3 (1.3-6.7); Neutrophils Percent Auto 37.7 % (45.5-73.1); Platelet Count Result 151 k/mm3 (150-375); Red Blood Count 3.69 M/mm3 (4.2-5.4); Red Cell Distribution Width 13.5 % (11.5-14.5); White Blood Count 4.5 K/mm3 (4.5-10.0)
--- NOTE | 2025-01-11 09:23 | PHAR ---
PT HOME MED CEFADROXIL 500MG 2 CAPS BID - VERIFIED M DARIANA MARINOH.
[2025-01-11] MEDS: MEGESTROL ACETATE (*CHEMO) 20 MG TABLET FEED TUBE (09:33)
[2025-01-11] MEDS: busPIRone HCL 5 MG TABLET 15 MG FEED TUBE ×3 (09:33→19:02)
[2025-01-11] MEDS: MULTIVITAMINS THERAPEUTIC TAB (*BKC) 1 TABLET PO (09:33)
[2025-01-11] MEDS: MECLIZINE HCL 12.5 MG TABLET PO ×4 (09:33→20:39)
[2025-01-11] MEDS: THIAMINE HCL 100 MG TABLET FEED TUBE (09:33)
[2025-01-11] MEDS: FERROUS SULFATE 325 MG TABLET DR PO ×2 (09:33→19:03)
[2025-01-11] MEDS: POTASSIUM CHLORIDE 20 MEQ PACKET (FOR LIQUID) 10 MEQ FEED TUBE (09:33)
[2025-01-11] MEDS: FOLIC ACID 1 MG TABLET FEED TUBE (09:33)
[2025-01-11] MEDS: MAGNESIUM OXIDE 400 MG TABLET PO (09:33)
[2025-01-11] MEDS: CEFADROXIL 500 MG FEED TUBE ×2 (09:34→20:52)
[2025-01-11] MEDS: [UNRECOGNIZED DRUG - OTHER] FEED TUBE ×2 (09:34→20:52)
[2025-01-11] MEDS: VITAMIN B COMPLEX CAPSULE 1 CAP FEED TUBE (09:34)
[2025-01-11] MEDS: SODIUM CHLORIDE 0.9% IV 1,000 ML 75 ML IV CONT ×2 (10:18→23:21)
--- NOTE | 2025-01-11 10:45 | P.PNIM_ITS ---
Progress Note: A&P Assessment and Plan (1) Hypomagnesemia: Code(s): E83.42 - Hypomagnesemia Status: Acute Assessment and Plan: * Mag 1.9. * Goal greater than 2. * Continue home med: Mag sulfate 100 mg BID. * Trend level. (2) Cardiac arrest with ventricular fibrillation: Code(s): I46.9 - Cardiac arrest, cause unspecified; I49.01 - Ventricular fibrillation Status: Resolved Assessment and Plan: * history of VFib arrest in October of 2024. Patient is wearing a life vest. * goal that time was for a K+ >4.0 and Mg >2.0. Potassium currently 4.0 and magnesium 1.9. * Continue home Potassium 10 meq per tube daily. * Continue home PO Mag. * monitor electrolytes closely * has been prescribed anticoagulation, however unable to fill due to cost. Currently waiting for approval from insurance. Care coordination called pharmacy and patient is approved for 6 months of Xarelto. Xarelto 20 mg PO daily. * Given dizziness and inability to remain compliant to anticoagulation, echo checked. * Echocardiogram showed: Summary 1. Left ventricular chamber dimension is normal. 2. Left ventricular systolic function is normal, estimated at 60-65. 3. LV mass measuring 1.3cm x 0.7cm noted near the LV apex and septal wall. 4. Right ventricular systolic function is normal. 5. There is mild mitral valve regurgitation. * Telemetry monitoring. * Cardiology consulted, appreciate recommendations. * Orthostatics: sitting BP 116/64 HR 75, Standing BP 105/67 HR 99, and supine BP 101/55 HR 62. * MSSA infection receiving Cefadroxil 1,000 mg PT q12. (3) Avoidant/restrictive food intake disorder: Code(s): F50.82 - Avoidant/restrictive food intake disorder Status: Acute Assessment and Plan: * PEG tube in place for Jevity 1.5 b.i.d. as supplement calories to a regular diet. Currently not requiring tube feeds. Nutritional ice cream TID with meals. * monitor electrolytes * patient feels her current diet regimen is covering her caloric needs, dietitian consult today. (4) UTI (urinary tract infection): Qualifiers: Hematuria presence: without hematuria Urinary tract infection type: acute cystitis Qualified Code(s): N30.00 - Acute cystitis without hematuria Code(s): N39.0 - Urinary tract infection, site not specified Status: Suspected Assessment and Plan: * UA: Cloudy, 1+ protein, 21-50 WBC, moderate epithelial cells, 1+ bacteria -> infection versus contaminant * UC negative. * Previous micro reviewed. Patient grew Klebsiella and E coli in July of 2024, resistant to Cipro/Levaquin with no further resistances. * Stop Ceftriaxone. Subjective Date/time seen: 01/11/25 10:45 Interval history: Patient sitting up in bed. Patient denies chest pain, palpitations, or shortness of breath. reports a headache that is a 2, frequent, and aching. Patient reports that appetite is improving. Patient reports pain in bilateral back of legs and feet was an 7, constant, and aching. Review of Systems Review of Systems: All systems reviewed & are unremarkable except as noted in HPI and below Exam Const: General: no acute distress and uncomfortable Resp: Effort & Inspection: normal respiratory effort Auscultation: clear to auscultation bilaterally Cardio: Rate: regular rate Rhythm: regular rhythm Other: Telemetry- SR 95. GI: GI Palp: Yes Soft to palpation Auscultation: normal bowel sounds Neuro: Speech: normal speech Extrem: General: no pedal edema Psych: Mental Status: mental status grossly normal Affect: normal affect Objective Data Vital Signs Vital Signs: Vital Signs - 24 hr 01/10/25 12:00 01/10/25 14:00 01/10/25 14:25 Temperature 98.9 F Pulse Rate 94 65 65 Respiratory Rate 14 Blood Pressure 104/59 L 104/59 L Pulse Oximetry 100 Oxygen Delivery 01/10/25 14:28 01/10/25 14:31 01/10/25 15:00 Temperature 97.9 F Pulse Rate 75 99 62 Respiratory Rate 20 Blood Pressure 116/64 105/67 101/55 L Pulse Oximetry 99 Oxygen Delivery 01/10/25 16:00 01/10/25 20:00 01/10/25 20:13 Temperature 97.6 F Pulse Rate 62 62 66 Respiratory Rate 16 Blood Pressure 106/60 Pulse Oximetry 100 Oxygen Delivery 01/11/25 00:00 01/11/25 04:00 01/11/25 05:11 Temperature 98.3 F Pulse Rate 74 74 80 Respiratory Rate 16 Blood Pressure 111/66 Pulse Oximetry 95 Oxygen Delivery 01/11/25 08:00 01/11/25 08:00 Temperature Pulse Rate 66 Respiratory Rate Blood Pressure Pulse Oximetry Oxygen Delivery Room Air Intake/Output Intake/Output: Intake & Output 01/08/25 01/09/25 01/10/25 01/11/25 23:59 23:59 23:59 23:59 Intake Total 2320 3034.6 3740 1083.8 Balance 2320 3034.6 3740 1083.8 Meds/Results Medications: Active Medications Generic Name Dose Route Start Last Admin Trade Name Freq PRN Reason Stop Dose Admin Acetaminophen 650 mg 01/08/25 09:56 Acetaminophen 325 Mg Tablet PO Q4H PRN Mild Pain (1-3) or Fever Buspirone HCl 15 mg 01/08/25 17:00 01/11/25 09:33 Buspirone Hcl 5 Mg Tablet FEED TUBE 15 mg TID JU Administration Ferrous Sulfate 325 mg 01/08/25 17:00 01/11/25 09:33 Ferrous Sulfate [address] PO 325 mg BID JU Administration Folic Acid 1 mg 01/09/25 09:00 01/11/25 09:33 Folic Acid 1 Mg Tablet FEED TUBE 1 mg DAILY JU Administration Sodium Chloride 1,000 mls @ 75 mls/hr 01/08/25 10:00 01/11/25 10:18 Normal Saline Iv IV CONT 75 mls/hr .[id number] JU Administration Magnesium Oxide 400 mg 01/10/25 09:00 01/11/25 09:33 Magnesium Oxide 400 Mg Tablet PO 400 mg DAILY JU Administration Meclizine HCl 12.5 mg 01/08/25 21:00 01/11/25 09:33 Meclizine Hcl 12.5 Mg Tablet PO 12.5 mg QID JU Administration Megestrol Acetate 20 mg 01/09/25 09:00 01/11/25 09:33 Megestrol Acetate (*Chemo) 20 Mg Tablet FEED TUBE 20 mg QAM JU Administration Metoclopramide HCl 10 mg 01/08/25 14:21 Metoclopramide Hcl 10 Mg Tablet PO Q6H PRN Nausea And Vomiting Morphine Sulfate 2 mg 01/08/25 19:49 01/11/25 10:18 Morphine Sulfate (*Crx) 2 Mg/Ml Inj IV PUSH 2 mg Q4H PRN Administration Pain Rated 7-10 Multivitamins Therapeutic 1 tablet 01/09/25 09:00 01/11/25 09:33 Multivitamins Therapeutic Tab (*Bkc) PO 1 tablet QAM [facility] Administration Nicotine 1 patch 01/08/25 14:25 01/10/25 13:59 Nicotine (*Pbkc) 14 Mg Patch TRANSDERM 1 patch Q24H JU Administration Nonformulary Drug 0 mg 01/11/25 09:20 01/11/25 09:34 Cefadroxil 500 Mg FEED TUBE 02/10/25 09:19 1,000 mg Q12HR JU Administration Olanzapine 5 mg 01/08/25 21:00 01/10/25 21:18 Olanzapine 5 Mg Tablet FEED TUBE 5 mg HS JU Administration Oxycodone HCl 5 mg 01/08/25 14:21 01/09/25 17:56 Oxycodone Hcl (*Crx) 5 Mg Tab Ir FEED TUBE 5 mg Q8H PRN Administration Pain Rated 4-6 Perflutren Lipid Microsphere 0 ml 01/09/25 10:57 Perflutren Lipid Microspheres 1.5 Ml Vial Diluted To 10 Ml Total Volume IV PUSH ONCE PRN adequate visualization Protocol Potassium Chloride 10 meq 01/09/25 09:00 01/11/25 09:33 Potassium Chloride 20 Meq Packet (For Liquid) FEED TUBE 10 meq DAILY JU Administration Rivaroxaban 20 mg 01/09/25 13:35 01/10/25 17:22 Rivaroxaban 20 Mg Tablet PO 20 mg DAILY@1700 JU Administration Thiamine HCl 100 mg 01/09/25 09:00 01/11/25 09:33 Thiamine Hcl 100 Mg Tablet FEED TUBE 100 mg DAILY JU Administration Vitamin B Complex 1 cap 01/09/25 09:00 01/11/25 09:34 Vitamin B Complex Capsule FEED TUBE 1 cap QAM JU Administration Radiology Results: ITS Impressions Chest/Abdomen/Pelvis CTA 01/08/25 08:27 IMPRESSION: CHEST: 1. No evidence of pulmonary embolism. 2. No acute cardiopulmonary pathology. 3. Right healing rib fractures. Healing fracture in the standard none. ABDOMEN/PELVIS: 1. No evidence of appendicitis, diverticulitis or intestinal obstruction. Chest X-Ray 01/08/25 08:52 IMPRESSION: No acute cardiopulmonary pathology. Labs Labs: Laboratory Results - last 24 hr 01/11/25 04:41 WBC 4.5 RBC 3.69 L Hgb 12.0 Hct 38.4 MCV 104.1 H MCH 32.5 MCHC 31.3 L RDW 13.5 Plt Count 151 MPV 11.0 H Immature Gran % (Auto) 0.2 Neut % (Auto) 37.7 L Lymph % (Auto) 51.8 H [place] % (Auto) 6.9 Eos % (Auto) 2.5 Baso % (Auto) 0.9 Lymph # (Auto) 2.32 [place] # (Auto) 0.3 Eos # (Auto) 0.1 Baso # (Auto) 0.0 Abs Immat Gran (auto) 0.01 Absolute Neuts (auto) 1.7 Absolute Nucleated RBC 0.000 Nucleated RBC % 0.0 Sodium 137 Potassium 4.0 Chloride 110 H Carbon Dioxide 20 L Anion Gap 7 BUN 6 L Creatinine 0.54 L Estim Creat Clear Calc 94 Estimated GFR > 60 Glucose 114 H Calcium 9.0 Phosphorus 4.9 H Magnesium 1.9 Total Bilirubin 0.2 AST 68 H ALT 32 Alkaline Phosphatase 110 Total Protein 6.1 L Albumin 3.1 L Quality VTE Prophylaxis VTE prophylaxis: pharmacologic ordered
--- NOTE | 2025-01-11 12:27 | PCNFU ---
Nutrition Follow-Up Complete: Inadequate Oral Intake as related to PEG tube as evidenced by hx of anorexia/severe protein calorie malnutrition. Goal: Meet estimated nutritional needs. Patient is progressing towards goal. We will continue current goal. Pt current nutrition is Regular with Nutritional Ice Cream TID. Last recorded weight is 51.2 kg Bowel Motility: Last reported BM 01/09 Labs Reviewed: Glu 114, BUN 6, Cr 0.54, Alb 3.1 Meds Noted: MVI, Thiamine, Folic Acid, Buspar, Megace. Skin:WNL Additional Notes: Patient remains on a regular diet and tolerating well. Not needed supplemental tube feedings at this time. Diet supplements are being consumed of Nutritional Ice Cream providing an additional 300 kcal and 9 gm protein. Agree with diet orders. Will monitor weight, labs, skin, diet orders, meds every Tuesday and Tuesday.
[2025-01-11] MEDS: NICOTINE (*PBKC) 14 MG PATCH 1 PATCH TRANSDERM (15:28)
[2025-01-11] MEDS: RIVAROXABAN 20 MG TABLET PO (19:02)
[2025-01-11] MEDS: OLANZapine 5 MG TABLET FEED TUBE (20:39)
[2025-01-12] VITALS: PULSE 71
[2025-01-12] MEDS: MORPHINE SULFATE (*CRX) 2 MG/ML INJ IV PUSH ×3 (01:04→10:24)
[2025-01-12 04:00] VITALS: PULSE 82
[2025-01-12 05:47] VITALS: BP 108/78; PULSE 92; RESP 16; TEMP 36.7; O2SAT 99
[2025-01-12 05:57] LABS: Basophils Percent Auto 0.8 % (0.2-1.2); Eosinophils Absolute Auto 0.1 K/mm3 (0-0.3); Eosinophils Percent Auto 2.7 % (0-4.4); Hematocrit 40.5 % (37.0-47.0); Hemoglobin 12.6 g/dL (12.0-15.0); Lymphocytes Absolute Auto 2.12 K/mm3 (0.9-3.2); Lymphocytes Percent Auto 44.1 % (18.3-44.2); Mean Corpuscular HGB Conc 31.1 g/dl (32-36); Mean Corpuscular Hemoglobin 32.1 pg (26-34); Mean Corpuscular Volume 103.1 fl (80-100); Mean Platelet Volume 10.4 fl (7.4-10.4); Monocytes Absolute Auto 0.4 K/mm3 (0.1-0.6); Monocytes Percent Auto 7.9 % (2.6-8.5); Neutrophils Absolute Auto 2.1 K/mm3 (1.3-6.7); Neutrophils Percent Auto 44.5 % (45.5-73.1); Platelet Count Result 160 k/mm3 (150-375); Red Blood Count 3.93 M/mm3 (4.2-5.4); Red Cell Distribution Width 13.5 % (11.5-14.5); White Blood Count 4.8 K/mm3 (4.5-10.0)
[2025-01-12 06:12] LABS: Alanine Aminotransferase 54 U/L (6-35); Albumin Level 3.7 g/dL (3.5-5.1); Alkaline Phosphatase 112 U/L (38-126); Anion Gap 10 mmol/L (4-12); Aspartate Amino Transferase 90 U/L (14-36); Bilirubin,Total 0.2 mg/dL (0.2-1.3); Blood Urea Nitrogen 7 mg/dL (7-17); Calcium 9.4 mg/dL (8.4-10.2); Carbon Dioxide 18 mmol/L (22-30); Chloride 109 mmol/L (98-107); Estimated CRCL calculation 91 ml/min; Estimated Glomerular Filt Rate > 60; Glucose 91 mg/dL (65-110); Magnesium 1.7 mg/dL (1.6-2.3); Potassium 3.9 mmol/L (3.4-5.0); Sodium 137 mmol/L (137-145); Total Protein 6.8 g/dL (6.3-8.2)
[2025-01-12 08:00] VITALS: PULSE 70
[2025-01-12] MEDS: MECLIZINE HCL 12.5 MG TABLET PO ×2 (08:18→14:06)
[2025-01-12] MEDS: MEGESTROL ACETATE (*CHEMO) 20 MG TABLET FEED TUBE (08:18)
[2025-01-12] MEDS: MULTIVITAMINS THERAPEUTIC TAB (*BKC) 1 TABLET PO (08:18)
[2025-01-12] MEDS: FERROUS SULFATE 325 MG TABLET DR PO (08:19)
[2025-01-12] MEDS: THIAMINE HCL 100 MG TABLET FEED TUBE (08:19)
[2025-01-12] MEDS: FOLIC ACID 1 MG TABLET FEED TUBE (08:19)
[2025-01-12] MEDS: VITAMIN B COMPLEX CAPSULE 1 CAP FEED TUBE (08:19)
[2025-01-12] MEDS: POTASSIUM CHLORIDE 20 MEQ PACKET (FOR LIQUID) 10 MEQ FEED TUBE (08:19)
[2025-01-12] MEDS: MAGNESIUM OXIDE 400 MG TABLET PO (08:19)
[2025-01-12] MEDS: CEFADROXIL 500 MG FEED TUBE (08:20)
[2025-01-12] MEDS: [UNRECOGNIZED DRUG - OTHER] FEED TUBE (08:20)
[2025-01-12] MEDS: MAGNESIUM SULF 1 GM/D5W 100 ML 1 GM/100 ML BAG IVPB (08:21)
[2025-01-12] MEDS: NICOTINE (*PBKC) 14 MG PATCH 1 PATCH TRANSDERM (08:25)
[2025-01-12] MEDS: busPIRone HCL 5 MG TABLET 15 MG FEED TUBE ×2 (09:58→14:06)
[2025-01-12 12:00] VITALS: PULSE 119
--- NOTE | 2025-01-12 12:01 | PM.DS ---
DS: Admitting Diagnosis Discharge Date 01/12/2025 Admitting Diagnosis Nausea/vomiting/diarrhea DS: Discharge Diagnosis Discharge Diagnosis (1) Hypomagnesemia: Code(s): E83.42 - Hypomagnesemia Status: Acute (2) Cardiac arrest with ventricular fibrillation: Code(s): I46.9 - Cardiac arrest, cause unspecified; I49.01 - Ventricular fibrillation Status: Resolved (3) Avoidant/restrictive food intake disorder: Code(s): F50.82 - Avoidant/restrictive food intake disorder Status: Acute DS: Summary Hospital Course Hospital Course: Patient is a 34 y/o female with PMH of cardiac arrest secondary to VFib arrest (October 2024), left ventricular clot secondary to arrest, avoidance/restrictive food intake disorder with PEG placement, depression/anxiety, adrenal insufficiency, and mitral valve prolapse presents here with dizziness. The patient presented to the emergency room on 01/08 for further evaluation of dizziness and shakiness. She reports onset 2-3 days ago. She reports the dizziness is persistent and is not precipitated by position changes. She describes the tremors as fine and like her whole body is shaking. Endorses fever - 100F. She endorses nausea, vomiting, and diarrhea. Reports she is nauseated at baseline, but the vomiting and diarrhea have previously resolved. She has a hx of N/V/D which improved with antiemetics and an appetite enhancer. She has a history of an eating disorder, has PEG tube to supplement regular diet. She is currently on cefadroxil for SSA infection - only bid until she has follow-up with [facility]. Seen there after she had a Vfib arrest in October of 2024 where she was also dx with LV clot. She has been prescribed anticoagulation but has been unable to remain compliant with the med as it is expensive. She is currently working with insurance to try to have the medication covered. Currently on a baby ASA daily in interim. She reports intermittent chest pain and shortness of breath - occurring randomly and at rest as well as with exertion. Initial VS at presentation: 97.9? F, HR 101, RR 10, 130/93, and 100% on RA. ED workup showed: No leukocytosis, no anemia, normal coags, ABG showed a pH of 7.499/CO2 is 27.1/HC03 26, potassium 3.7, creatinine 0.67 and GFR >60, glucose 112, lactic 1.8, magnesium 1.4, troponin negative x3, BNP within normal limits, procalcitonin 0.2, UA showed indications of contamination. HCG negative. Viral PCR negative. CXR showed no acute cardiopulmonary pathology. Chest/abdomen/pelvis CTA showed no evidence of PE, no acute cardiopulmonary pathology, right healing rib fractures, no evidence of appendicitis/diverticulitis/intestinal obstruction. EKG showed sinus rhythm, rate 98, low QRS voltage in precordial leads, ST-T-wave abnormality in anterior/inferior leads consider ischemia. When compared to previous EKG, heart rate is decreased. Echocardiogram showed: Summary 1. Left ventricular chamber dimension is normal. 2. Left ventricular systolic function is normal, estimated at 60-65. 3. LV mass measuring 1.3cm x 0.7cm noted near the LV apex and septal wall. 4. Right ventricular systolic function is normal. 5. There is mild mitral valve regurgitation. Xarelto started. Patient tolerating well and insurance approval per pharmacy. Patient to follow up with [facility] cardiology outpatient. Patient tolerating oral intake with no further nausea or vomiting. General Farmworker followed during hospitalization. Magnesium replaced. Cardiology consult completed. Status at Discharge Functional status at discharge: independent ambulation Overall status at discharge: patient is progressing back to baseline Time Spent with Patient Time attestation: Total time spent providing and/or coordinating discharge services: Time spent: Greater than 30 minutes Exam Const: General: no acute distress and uncomfortable Resp: Effort & Inspection: normal respiratory effort Auscultation: clear to auscultation bilaterally Cardio: Rate: regular rate Rhythm: regular rhythm Other: Telemetry- SR 77. GI: GI Palp: Yes Soft to palpation Auscultation: normal bowel sounds Extrem: General: no pedal edema Psych: Mental Status: mental status grossly normal Affect: normal affect DS: Data Data Completed and Pending Labs on day of discharge: Labs from last 24 hours 01/12/25 05:34 WBC 4.8 RBC 3.93 L Hgb 12.6 Hct 40.5 MCV 103.1 H MCH 32.1 MCHC 31.1 L RDW 13.5 Plt Count 160 MPV 10.4 Immature Gran % (Auto) 0.0 Neut % (Auto) 44.5 L Lymph % (Auto) 44.1 [place] % (Auto) 7.9 Eos % (Auto) 2.7 Baso % (Auto) 0.8 Lymph # (Auto) 2.12 [place] # (Auto) 0.4 Eos # (Auto) 0.1 Baso # (Auto) 0.0 Abs Immat Gran (auto) 0.00 Absolute Neuts (auto) 2.1 Absolute Nucleated RBC 0.000 Nucleated RBC % 0.0 Sodium 137 Potassium 3.9 Chloride 109 H Carbon Dioxide 18 L Anion Gap 10 BUN 7 Creatinine 0.56 L Estim Creat Clear Calc 91 Estimated GFR > 60 Glucose 91 Calcium 9.4 Phosphorus 5.0 H Magnesium 1.7 Total Bilirubin 0.2 AST 90 H ALT 54 H Alkaline Phosphatase 112 Total Protein 6.8 Albumin 3.7 Discharge Plan Discharge Attending physician on discharge: Rohan Hoff Consulting providers: Oz Noble Discharging Clinician: Eveline Castro Anticipated Discharge Date/Time: 01/12/25 13:06 Patient Disposition: Home Activity: may shower and as tolerated Diet: regular Discharge Instructions: Care Coordination: Patient is current with [facility] Home Health and they will resume services at discharge. Their phone number is [phone], if you have any questions; they will contact you to schedule their visit. RN Please fax discharge instructions to [phone]. Wear your life vest. Keep your scheduled appointments with [facility]. Increase oral intake. Supplement as needed with tube feeds. Take your Xarelto as prescribed. Report any bleeding or bruising to provider. Thank you for entrusting [facility] with your healthcare! Patient Instructions: Antibiotic Form, Aspirin (By mouth), Clopidogrel (By mouth), Rivaroxaban (By mouth), Hypomagnesemia (DC) Patient Language: Vietnamese Stand Alone Forms: General Discharge Information Follow-up/Referrals: Mo Mitchell MD [Primary Care Provider] - 1 Week Discharge Medications: New Xarelto 20 mg Tablet 20 mg PO DAILY@1700 Qty: 30 0RF Continued ondansetron 8 mg tablet,disintegrating 8 mg PO Q8H PRN (Reason: nausea and vomiting) Qty: 90 0RF olanzapine 5 mg tablet 5 mg feeding tube QPM buspirone 15 mg tablet 15 mg feeding tube TID cefadroxil 500 mg capsule 1,000 mg feeding tube Q12H cyanocobalamin (vitamin B-12) 1,000 mcg tablet 1,000 mcg feeding tube MONTHLY oxycodone 5 mg tablet 5 mg feeding tube Q8H PRN (Reason: pain) nicotine 14 mg/24 hr patch 24 hour 1 patch transdermal Q24H thiamine HCl (vitamin B1) 100 mg tablet 100 mg feeding tube DAILY folic acid 1 mg tablet 1 mg feeding tube DAILY ferrous sulfate 325 mg (65 mg iron) tablet,delayed release (DR/EC) 325 mg PO BID Rx Instructions: patient administers via feeding tube megestrol 20 mg tablet 20 mg feeding tube QAM vitamin B complex [Vitamins B Complex] Capsule 1 cap feeding tube QAM multivitamin with folic acid [Thera] 400 mcg tablet 1 tablet PO QAM Rx Instructions: pt administers via feeding tube Jevity 1.5 Chriss 0.06 gram-1.5 kcal/mL liquid See Rx Instructions .ROUTE .COMPLEX Rx Instructions: 75ml one to two times a day. potassium chloride 10 mEq capsule, extended release 10 meq feeding tube DAILY Qty: 60 0RF metoclopramide HCl [Reglan] 10 mg tablet 10 mg PO Q6H Qty: 120 0RF Changed magnesium oxide 400 mg (241.3 mg magnesium) tablet 420 mg feeding tube BID Qty: 60 0RF Date of admission: 01/10/25 15:34 Primary Care Provider: Mo Mitchell Admitting Provider: Cayden Maldonado Attending physician on admission: Cayden Maldonado Condition: Stable Hospitalist MIPS Heart Failure (Exclusion) Patient has history of Heart Transplant or Left Ventricular Assistive Device?: No IF YES, STOP HERE Heart Failure (Qualifier) Patient has current or prior documentation of LVEF less than or equal to 40%, or mod/servere depressed LVSF?: No IF NO, STOP HERE
[2025-01-12 14:00] VITALS: BP 108/70; PULSE 99; RESP 16; TEMP 36.8; O2SAT 99
[2025-01-12] MEDS: oxyCODONE HCL (*CRX) 5 MG TAB IR FEED TUBE (14:16)
== END 2025-01-12 16:05 | disposition home health service (06) | DRG 425 ==
LOC: ANHED 07:40 → ANH2MED 10:17
PROVIDERS: Nurse Practitioner Family; Student in an Organized Health Care Education/Training Program; Admitting Provider Internal Medicine; Emergency Provider Emergency Medicine; PCP Internal Medicine; Visit Provider General Practice
DX: E83.42 Hypomagnesemia (principal); F41.8 Other specified anxiety disorders; E27.40 Unspecified adrenocortical insufficiency; I49.01 Ventricular fibrillation; F50.82 Avoidant/restrictive food intake disorder; F17.210 Nicotine dependence, cigarettes, uncomplicated; Z93.1 Gastrostomy status; Z91.141 Patient's other noncompliance with medication regimen due to financial hardship
CPT/HCPCS: 36415; 36600; 71045; 71275; 74177; 80048; 80053; 81001; 81025; 82805; 83605; 83690; 83735; 83880; 84100; 84145; 84484; 85018; 85025; 85610; 85730; 87637; 93005; 96361; 96365; 96366; 96367; 96372; 96374; 96375; 96376; 99285; A9270; C8929; G0378; G0379; J0696; J1650; J2270; J3475; J3480; J7030; Q9957; Q9967

== ENCOUNTER 2025-01-17 09:38 | Emergency (ER) | payer OTHER, SELFPAY ==
[2025-01-17] VITALS (9 sets, daily range): BP systolic 111–122; BP diastolic 71–87; PULSE 89–107; RESP 16–28; TEMP 36.6–37.1; O2SAT 98–100
--- NOTE | 2025-01-17 09:58 | ED.GENADULT ---
HPI - General Adult General Chief complaint: Dizziness Stated complaint: I am shaky and dizzy. Time Seen by Provider: 01/17/25 09:43 History of Present Illness HPI narrative: 34-year-old female with the past medical history of cardiac arrest secondary to VFib in 11/16, left ventricular clot secondary to rest, avoidance/restrictive food intake disorder with PEG placement, depression, anxiety, mitral valve prolapse presents to the ER complaining of ?shakiness and dizziness. Patient states last night she began developing dizziness and shaking. States the dizziness is persistent and not changed with positional changes. States the tremors are fine and describes MS her whole body is shaking. Patient also endorses nausea with multiple episodes of nonmelanotic diarrhea. Patient denies abdominal pain, chest pain, shortness of breath. States that she was discharged to the hospital 1 week ago for similar symptoms. Patient states she has she was taking OxyContin every 3 hours and has since had to come back to every 8 hours. Related Data Home Medications ?Medication ?Instructions ?Recorded ?Confirmed ?Last Taken ?Type ferrous sulfate 325 mg (65 mg 325 mg PO BID 03/28/24 01/08/25 01/07/25 History iron) tablet,delayed release folic acid 1 mg tablet 1 mg feeding tube DAILY 03/28/24 01/08/25 01/07/25 History megestrol 20 mg tablet 20 mg feeding tube QAM 03/28/24 01/08/25 01/07/25 History multivitamin with folic acid 400 1 tablet PO QAM 03/28/24 01/08/25 01/07/25 History mcg tablet (Thera) thiamine HCl (vitamin B1) 100 mg 100 mg feeding tube DAILY 03/28/24 01/08/25 01/07/25 History tablet vitamin B complex (Vitamins B 1 cap feeding tube QAM 03/28/24 01/08/25 01/07/25 History Complex capsule) lactose-reduced food with fiber See Rx Instructions .Route .COMPLEX 08/07/24 01/08/25 01/07/25 History 0.06 gram-1.5 kcal/mL oral liquid (Jevity 1.5 Chriss) buspirone 15 mg tablet 15 mg feeding tube TID 01/08/25 01/08/25 01/07/25 History cefadroxil 500 mg capsule 1,000 mg feeding tube Q12H 01/08/25 01/11/25 01/07/25 History cyanocobalamin (vitamin B-12) 1,000 mcg feeding tube MONTHLY 01/08/25 01/08/25 01/07/25 History 1,000 mcg tablet nicotine 14 mg/24 hr daily 1 patch transdermal Q24H 01/08/25 01/08/25 01/07/25 History transdermal patch olanzapine 5 mg tablet 5 mg feeding tube QPM 01/08/25 01/08/25 01/07/25 History oxycodone 5 mg tablet 5 mg feeding tube Q8H PRN pain 01/08/25 01/08/25 01/07/25 History Allergies Allergy/AdvReac Type Severity Reaction Status Date / Time latex Allergy Rash Verified 01/17/25 09:57 melatonin AdvReac Mild chest Verified 01/17/25 09:57 heaviness PMFSH Past Medical History Medical History Cardiac arrest with ventricular fibrillation October 2024 Adrenal insufficiency Depression with anxiety Avoidant/restrictive food intake disorder Cannabis abuse Elevated LFTs Mitral valve prolapse Surgical History Surgical History History of percutaneous endoscopic gastrostomy Family History Family History Mother Heart attack Mitral valve prolapse Grandparent Cancer Grandparent Mitral valve prolapse Social History Social History Social History: Surrogate medical decision maker: Jorge Luis Centeno, significant other. Code status: Full code. Smoking packs per day: 0.3 Smoking cigarettes per day: 6.0 Years smoked: 19 Smoking pack-years: 5.70 Smoking status: Current every day smoker Tobacco type: cigarettes Alcohol intake: current Drinks per week: 4 Alcohol use details: States she drinks 1 pint a week Substance use: former Substance use type: marijuana Other substance usage details: weekly Last use: 10/31/23 Do You Feel Safe in your Home?: Yes Lack of Transportation: No Lack of Food: Never True Current Housing: I Have Housing Concerned About Future Housing: No Difficulty Paying Gas/Electric Bills: No Difficulty Paying for Meds: No Currently Unemployed: No Education: Associate Degree Difficulty w/ Childcare or Family Care: No Living arrangements: with family Additional living arrangements comments: with 7 year old son and fibj? Occupation/Education: unemployed Spiritual care concerns: No Agree to blood products: Yes Exam Const: General: alert and ill appearing Nutritional Appearance: thin Orientation/consciousness: patient oriented x3 HENMT: Head: normal to inspection Mouth: Yes moist mucous membranes Eyes: Conjunctivae: conjunctivae normal Pupils: Equal, round and reactive pupils present EOM: EOMs intact bilaterally Resp: Effort & Inspection: normal respiratory effort Auscultation: clear to auscultation bilaterally Cardio: Rate: regular rate Rhythm: regular rhythm GI: Other: Kestra vest in place Skin: General skin exam: normal color Rashes: no rashes Wounds: no wounds Neuro: General: patient oriented x3, moves all extremities, no focal motor deficits and CN's II-XI intact bilaterally Cranial nerves: Yes Nystagmus not present Speech: normal speech Other: Fine tremors Extrem: General: normal to inspection Psych: Mental Status: mental status grossly normal Affect: Anxious affect present Attitude: cooperative Course Vital Signs Vital signs: Vital Signs Temperature 37.1 C 01/17/25 09:54 Pulse Rate 95 01/17/25 09:54 Respiratory Rate 16 01/17/25 09:54 Blood Pressure 122/87 01/17/25 09:54 Pulse Oximetry 100 01/17/25 09:54 Oxygen Delivery Room Air 01/17/25 09:54 Temperature 37.1 C 01/17/25 09:54 Pulse Rate 95 01/17/25 09:54 Respiratory Rate 16 01/17/25 09:54 Blood Pressure 122/87 01/17/25 09:54 Pulse Oximetry 100 01/17/25 09:54 Oxygen Delivery Room Air 01/17/25 09:54 Medical Decision Making MDM Narrative Medical decision making narrative: 34-year-old female the presented with planning of shaking, increased anxiety and diarrhea for several days. Cbc and CMP remained stable since discharge on 01/12/2025. Patient was given Zofran and Ativan of. On reexamination symptoms had significantly improved. Patient had reported to me that she is taking OxyContin every 8 hours instead of every 4. Considered opiate withdrawal. Encourage patient to follow up with the prescribing of provider to change her dosing of OxyContin. Patient was discharged in stable condition. Vital Signs Vital Signs: Vital Signs Temperature 37.1 C 01/17/25 09:54 Pulse Rate 95 01/17/25 09:54 Respiratory Rate 16 01/17/25 09:54 Blood Pressure 122/87 01/17/25 09:54 Pulse Oximetry 100 01/17/25 09:54 Oxygen Delivery Room Air 01/17/25 09:54 Temperature 37.1 C 01/17/25 09:54 Pulse Rate 95 01/17/25 09:54 Respiratory Rate 16 01/17/25 09:54 Blood Pressure 122/87 01/17/25 09:54 Pulse Oximetry 100 01/17/25 09:54 Oxygen Delivery Room Air 01/17/25 09:54 Discharge Plan Discharge Clinical Impression: Opiate withdrawal, Shaking, Hypomagnesemia Patient Disposition: Home Condition: Stable Instructions: Antibiotic Form Patient Language: Senegalese Prescriptions: No Action ondansetron 8 mg tablet,disintegrating 8 mg PO Q8H PRN (Reason: nausea and vomiting) Qty: 90 0RF olanzapine 5 mg tablet 5 mg feeding tube QPM buspirone 15 mg tablet 15 mg feeding tube TID cefadroxil 500 mg capsule 1,000 mg feeding tube Q12H cyanocobalamin (vitamin B-12) 1,000 mcg tablet 1,000 mcg feeding tube MONTHLY oxycodone 5 mg tablet 5 mg feeding tube Q8H PRN (Reason: pain) nicotine 14 mg/24 hr patch 24 hour 1 patch transdermal Q24H Xarelto 20 mg Tablet 20 mg PO DAILY@1700 Qty: 30 0RF magnesium oxide 400 mg (241.3 mg magnesium) tablet 420 mg feeding tube BID Qty: 60 0RF thiamine HCl (vitamin B1) 100 mg tablet 100 mg feeding tube DAILY folic acid 1 mg tablet 1 mg feeding tube DAILY ferrous sulfate 325 mg (65 mg iron) tablet,delayed release (DR/EC) 325 mg PO BID Rx Instructions: patient administers via feeding tube megestrol 20 mg tablet 20 mg feeding tube QAM vitamin B complex [Vitamins B Complex] Capsule 1 cap feeding tube QAM multivitamin with folic acid [Thera] 400 mcg tablet 1 tablet PO QAM Rx Instructions: pt administers via feeding tube Jevity 1.5 Chriss 0.06 gram-1.5 kcal/mL liquid See Rx Instructions .ROUTE .COMPLEX Rx Instructions: 75ml one to two times a day. potassium chloride 10 mEq capsule, extended release 10 meq feeding tube DAILY Qty: 60 0RF metoclopramide HCl [Reglan] 10 mg tablet 10 mg PO Q6H Qty: 120 0RF Follow-up/Referrals: Mo Mitchell MD [Primary Care Provider] - Time of Disposition: 11:21
--- NOTE | 2025-01-17 10:00 | ECG_ITS ---
Test Date: 2025-01-17 10:20:54 Measurements Intervals [place] Rate: 80 P: 54 AL: 120 QRS: 60 QRSD: 88 T: 37 QT: 400 QTc: 464 Interpretive Statements SINUS RHYTHM LOW QRS VOLTAGE IN PRECORDIAL LEADS CANNOT R/O SEPTAL INFARCT, AGE INDETERMINATE BORDERLINE ST-T WAVE ABNORMALITY- ANT/INF LEADS BASELINE ARTIFACT- I, III, AVR, AVL, AVF ABNORMAL ECG Possible ischemia no longer present Electronically Signed On 01-17-2025 10:50:14 CDT by Jayme Mcneal D.O.
[2025-01-17] MEDS: LORazepam INJ (*CRX) 2 MG/ML VIAL 1 MG IV PUSH (10:21)
[2025-01-17] MEDS: ONDANSETRON INJ 4 MG/2 ML VIAL IV PUSH (10:21)
[2025-01-17] MEDS: SODIUM CHLORIDE 0.9% IV 1,000 ML 999 ML IV CONT (10:21)
[2025-01-17 10:34] LABS: Basophils Absolute Auto 0.1 K/mm3 (0.0-0.1); Basophils Percent Auto 1.4 % (0.2-1.2); Eosinophils Absolute Auto 0.1 K/mm3 (0-0.3); Eosinophils Percent Auto 1.2 % (0-4.4); Hematocrit 38.3 % (37.0-47.0); Hemoglobin 12.7 g/dL (12.0-15.0); Immature Granulocyte Absolute 0.01 K/mm3 (0.00-0.031); Immature Granulocyte Percent A 0.2 % (0-0.5); Lymphocytes Absolute Auto 2.29 K/mm3 (0.9-3.2); Lymphocytes Percent Auto 52.9 % (18.3-44.2); Mean Corpuscular HGB Conc 33.2 g/dl (32-36); Mean Corpuscular Hemoglobin 31.9 pg (26-34); Mean Corpuscular Volume 96.2 fl (80-100); Mean Platelet Volume 9.5 fl (7.4-10.4); Monocytes Absolute Auto 0.5 K/mm3 (0.1-0.6); Monocytes Percent Auto 11.5 % (2.6-8.5); Neutrophils Absolute Auto 1.4 K/mm3 (1.3-6.7); Neutrophils Percent Auto 32.8 % (45.5-73.1); Platelet Count Result 235 k/mm3 (150-375); Red Blood Count 3.98 M/mm3 (4.2-5.4); Red Cell Distribution Width 13.3 % (11.5-14.5); White Blood Count 4.3 K/mm3 (4.5-10.0)
[2025-01-17 10:35] LABS: Alanine Aminotransferase 49 U/L (6-35); Albumin Level 4.4 g/dL (3.5-5.1); Alkaline Phosphatase 122 U/L (38-126); Anion Gap 14 mmol/L (4-12); Aspartate Amino Transferase 66 U/L (14-36); Bilirubin,Total 0.7 mg/dL (0.2-1.3); Blood Urea Nitrogen 9 mg/dL (7-17); Calcium 9.3 mg/dL (8.4-10.2); Carbon Dioxide 23 mmol/L (22-30); Chloride 102 mmol/L (98-107); Estimated CRCL calculation 81 ml/min; Estimated Glomerular Filt Rate > 60; Glucose 106 mg/dL (65-110); Magnesium 1.3 mg/dL (1.6-2.3); Potassium 3.3 mmol/L (3.4-5.0); Sodium 139 mmol/L (137-145); Total Protein 7.7 g/dL (6.3-8.2)
--- NOTE | 2025-01-17 10:50 | PC.NURSE ---
urine not collected, scanned in error.
[2025-01-17 10:52] LABS: Beta HCG Quantitative < 2.39 mIU/ML
== END 2025-01-17 11:33 | disposition home or self-care (01) ==
PROVIDERS: Emergency Provider Nurse Practitioner Family; PCP Internal Medicine
DX: F11.23 Opioid dependence with withdrawal (principal); T40.2X6A Underdosing of other opioids, initial encounter; R25.8 Other abnormal involuntary movements; E83.42 Hypomagnesemia; E27.40 Unspecified adrenocortical insufficiency; I34.1 Nonrheumatic mitral (valve) prolapse; F41.8 Other specified anxiety disorders; F50.82 Avoidant/restrictive food intake disorder; Z68.1 Body mass index [BMI] 19.9 or less, adult; F17.210 Nicotine dependence, cigarettes, uncomplicated; Z93.1 Gastrostomy status; Z95.811 Presence of heart assist device; Z79.01 Long term (current) use of anticoagulants; Z79.899 Other long term (current) drug therapy; R94.31 Abnormal electrocardiogram [ECG] [EKG]
CPT/HCPCS: 36415; 80053; 83605; 83735; 84702; 85025; 93005; 96361; 96374; 96375; 99284; J2060; J2405; J7030

== ENCOUNTER 2025-02-13 12:06 | Observation (INO) | payer OTHER, SELFPAY ==
[2025-02-13] VITALS (7 sets, daily range): BP systolic 107–137; BP diastolic 68–88; PULSE 87–150; RESP 16–24; TEMP 36.5–37.6; O2SAT 99–100; BMI 20.1
--- NOTE | ~2025-02-13 | XR_ITS ---
EXAMINATION: XR chest 1V portable 02/13/2025 13:18 INDICATION: Chest palpitations PROCEDURE: AP portable chest COMPARISON: Comparison to multiple prior studies sequentially, with oldest reviewed study dated 11/03. FINDINGS: The lungs are clear. The cardiomediastinal silhouette is within normal limits. There are no pleural effusions. There is no pneumothorax suspected. IMPRESSION: 1: NO ACUTE CARDIOPULMONARY DISEASE. Reviewed, dictated and finalized at location A.
--- OUTSIDE RECORDS SUMMARY | 2025-02-13 12:08 | XMS_ITS | Encounter Summary ---
Author Organization [facility] Facility Care Team Providers Care Crop And Soil Technician Name Role Phone Christian Merritt MD Primary Care Provider [phone] Mo Mitchell MD Primary Care Provider [phone] Neeta Ott RN Unavailable [phone] Encounter Details Date Type Department Care Team (Latest Contact Info) Description 12/09/2016 Orders Only [facility] Provider, MD Serge [address] [place] [id number] Social History Tobacco Use Types Packs/Day Years Used Date Smoking Tobacco: Never Assessed Comments Unknown Sex and Gender Information Value Date Recorded Sex Assigned at Not on file 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
--- OUTSIDE RECORDS SUMMARY | 2025-02-13 12:08 | XMS_ITS | Encounter Summary ---
Author Organization [facility] Facility Care Team Providers Care Auto Body Shop Manager Name Role Phone Christian Merritt MD Primary Care Provider [phone] Mo Mitchell MD Primary Care Provider [phone] Neeta Ott RN Unavailable Encounter Details Date Type Department Care Team (Latest Contact Info) Description 12/06/2016 Orders Only [facility]INCONV Provider, MD Serge [address] [place] [id number] Social History Tobacco Use Types Packs/Day Years Used Date Smoking Tobacco: Never Assessed Comments Unknown Sex and Gender Information Value Date Recorded Sex Assigned at Not on file 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
--- OUTSIDE RECORDS SUMMARY | 2025-02-13 12:09 | XMS_ITS | Encounter Summary ---
Author Organization [facility] Healthcare Address [address] [place] [address] Care Team Providers Care Producer Director Name Role Phone Mo Mitchell MD Primary Care Provider [phone] Reason for Visit * Auth/Cert (Routine) Specialty Diagnoses / Procedures Referred By Millie t Referred To Contact Referral ID Status Reason Start Date Expiration Date Visits Re quested Visits Authorized [id number] 1 11 Encounter Details Date Type Department Care Team (Late st Contact Info) Description 02/12/2025 2:30 PM CDT Home Care Visit [address] [place] [address] Nayely Pedroza, BRITTANIE SN HOME VISIT Social History Tobacco Use Types Packs/Day Years Used Date Smoking Tobacco: Every Day Cigarettes Smokeless Tobacco: Never OASIS D0700: Social Isolation Answer Da te Recorded Frequency of experiencing loneliness or isolatio n Never 01/31/2025 OASIS A1250: Transportation Answer Date Recorded Lack of Transportation (Medical) No 01/18/2025 Lack of Transportation (Non-Medical) No 01/18/2025 Patient Unable or Declines to Respond No 01/18/2025 OASIS B1300: Health Literacy Answer Garrett e Recorded Frequency of needing help to read materials from doctor or pharmacy Sometimes 01/18/2025 [facility] Utilities Answer Date Recorded In the past 12 months has e electric, gas, oil, or water company threatened to shut off services in your [...] often do you attend chur ch or confucianism services? Never 11/29/2024 Do you belong to any clubs o r organizations such as presybeterian groups, unions, fraternal or athletic groups, or [...] any time in the past 12 m [facility], were you homeless or living in a long-term (including now)? No 11/29/2024 Personal Safety Answer Date Recorded Have you ever been in or are you currently in a harmful physical or emotional relationship or is someone making you feel afraid or unsafe? 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 Gender Identity Not on file Sexual Orientation Not on file documented as of this encounter Last Filed Vital Signs Vital Sign Reading Time Taken Comments Blood Pressure 116/82 02/12/2025 2:37 PM CDT Pulse 118 02/12/2025 2:37 PM CDT Temperature 37.2 C (98.9 F) 02/12/2025 2:37 PM CDT Respiratory Rate 18 02/12/2025 2:37 PM CDT Oxygen Saturation 91% 02/12/2025 2:37 PM CDT Inhaled Oxygen Concentration - - Weight 49.9 kg (110 lb) 02/12/2025 2:37 PM CDT Height - - Body Mass Index 20.8 01/24/2025 9:44 AM CDT documented in this encounter Miscellaneous Notes * Home Health Visit Narrative - Nayely Pedroza RN - 02/12/2025 2:32 PM CDT Pt admits to drinking half a pint of rum yesterday, patient denies drinking alcohol today. Pt has smell of alcohol on her breath and is not acting like her self. Call placed to Dr. Mitchell to notify him of findings. 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 documented as of this encounter Home Health Visit - Care Plan Visit Details Visit Type -SN Home Visit Discipline -[facility] Problems Problem Description Start Date Status Goals Interve ntions Pressure Prevention Disciplines: Skilled Disciplines Pressure Prevention 12/01/2024 Active 1 goal linked to scheduled/docume nted intervention 1 goal intervention scheduled/documen margy in this visit Medications Disciplines: [facility] Management of home medications 12/01/2024 Active 1 goal linked to scheduled/docume nted intervention 2 goal interventions scheduled/documen margy in this visit Monitor patient's vital signs every home health visit Disciplines: Skilled Disciplines, SN, PT, OT, GERIATRIC NURSE ASSISTANT, DAG COATER Monitor patient's vital signs every home health visit. 12/01/2024 Active 1 goal linked to scheduled/docume nted intervention 1 goal intervention scheduled/documen margy in this visit Multidisciplinar y Case Conference Disciplines: Skilled Disciplines Concurrently discusses plan of treatment and coordinate patient centered care 12/01/2024 Active 1 goal linked to scheduled/docume nted intervention Infection Prevention Disciplines: Skilled Disciplines Infection Prevention 12/01/2024 Active 1 goal linked to scheduled/docume nted intervention 2 goal interventions scheduled/documen margy in this visit Fall Precautions/Safe ty Concerns Disciplines: Skilled Disciplines Fall precautions and general safety 12/01/2024 Active 1 goal linked to scheduled/docume nted intervention 1 goal intervention scheduled/documen margy in this visit Depression Disciplines: Skilled Disciplines Depression 12/01/2024 Active 1 goal linked to scheduled/docume nted intervention 3 goal interventions scheduled/documen margy in this visit Pain Disciplines: Core Disciplines Alteration in comfort 12/01/2024 Active 1 goal linked to scheduled/docume nted intervention 1 goal intervention scheduled/documen margy in this visit Knowledge Deficit Enteral Feeding Disciplines: [facility] Knowledge deficit for enteral feeding 12/01/2024 Active 1 goal linked to scheduled/docume nted intervention 5 goal interventions scheduled/documen margy in this visit Pain Disciplines: [facility] Patient is experiencing pain 12/01/2024 Active 1 goal linked to scheduled/docume nted intervention 3 goal interventions scheduled/documen margy in this visit Alteration in coping Disciplines: [facility] Alteration in coping related to necessary lifestyle adaptations 12/01/2024 Active 1 goal linked to scheduled/docume nted intervention 1 goal intervention scheduled/faiza ji in this visit Collect Specimen/Lab Draw Disciplines: [facility] Management of specimen samples, including lab draws, stool, urine, sputum & wound cultures 12/28/2024 Active 1 goal linked to scheduled/docume nted intervention Collect Specimen/Lab Draw Disciplines: [facility] Management of specimen samples, including lab draws, stool, urine, sputum & wound cultures 02/01/2025 Active 1 goal linked to scheduled/docume nted intervention Goals Goal Associated Problem Outcome Goal Met? Visit Notes Prevent development of pressure injuries Description: exterminator goal: The patient will maintain intact skin and avoid the development of pressure injuries within 12/08/24 Short term goal: The patient/caregiver will understand and adhere to pressure prevention interventions within 12/01/24 Pressure Prevention Progressing No Understand and follow medication therapy Description: Patient/Caregiver will verbalize understanding of purpose, side effects, and medication regimen in 4 weeks as evidenced by taking all medications as prescribed and no medication errors. Medications Progressing No Measure vital signs during every home health visit during episode of care Description: Home cylinder steamer to measure vital signs during every home health visit during episode of care. Monitor patient's vital signs every home health visit Progressing No Care team will coordinate care Description: Care team will coordinate care centered on patient needs throughout the episode of care. Multidisciplinary Case Conference Progressing No Verbalize signs of infection Description: Patient/caregiver will demonstrate knowledge of infection prevention strategies by verbalizing signs and symptoms of infection. Infection Prevention Progressing No Demonstrate fall and safety precautions Description: Patient/caregiver maintains safe home environment as evidenced by remaining free from falls, injury due to falls, demonstrating safety precautions, and identifying strategies to reduce falls by 12/08/24 Fall Precautions/Safety Concerns Progressing No Demonstrate knowledge of depression Description: Patient/caregiver to demonstrate knowledge of depression as evidence by verbalization of signs and symptoms of depression and when to report to physician. Depression Progressing No Report that pain has been reduced or controlled Description: Patient/caregiver/family will verbalize satisfaction with the patients level of pain and symptom control. Pain Progressing No Demonstrate enteral feeding care Description: Patient/caregiver will demonstrate the ability to care for enteral access daily, perform feedings, identify signs of infection and troubleshoot complications throughout the episode of care. Knowledge Deficit Enteral Feeding Progressing No Report reduction/control of pain Description: Patient will report that pain has been reduced or controlled through verbal or nonverbal means and that measures to promote comfort are effective throughout the episode of care. Pain Progressing No Demonstrate ability to manage CHF Description: Patient/caregiver will demonstrate knowledge of coping strategies as evidenced by verbalizing understanding of stress reduction techniques and/or lifestyle changes for cardiac health by the end of the episode of care. Alteration in coping Progressing No Collect Specimen/Lab Draw Description: Collect specimen / draw labs as ordered Collect Specimen/Lab Draw Progressing No Collect Specimen/Lab Draw Description: Collect specimen / draw labs as ordered Collect Specimen/Lab Draw Not Progressing No Interventions Intervention Associated Problem/Goal Status Variance Visit Notes Instruct on Pressure Prevention Description: Instruct patient/caregiver on inspecting the skin regularly for signs of impaired skin integrity, repositioning the patient on an individualized schedule according to the patient's tissue tolerance, skin condition, mobility, medical condition, and treatm ent goals. Avoid vigorous massage and emphasize the importance of increasing activity and mobility. Avoid using donut-shaped devices and foam cutouts for pressure redistribution. Determine if patient is using or needs a pressure reduction surface. Instruct patient/caregiver on using moisture barriers and absorbent pads/briefs as needed, avoiding prolonged skin contact with wet materials, and cleaning and drying skin thoroughly after incontinence episodes. If patient is malnourished instruct patie nt/caregiver on physician ordered diet, increased fluid intake if not contraindicated, and a list of possible protein sources to promote skin integrity. Problem:Pressure Prevention Goal:Prevent development of pressure injuries Completed Instructed patient/caregiver on pressure prevention including: inspecting the skin and avoiding vigorous massage, repositioning patient and importance of increasing activity and mobility, using positioning devices, avoiding donut shaped/foam cutouts, lucien ating heels , Managing moisture and Managing nutrition Patient verbalized understanding inspecting the skin and avoiding vigorous massage, repositioning patient and importance of increasing activity and mobility, using positioning devices, avoiding do nut shaped/foam cutouts, floating heels , Managing moisture and Managing nutrition Instruct on Medication Management Description: Assess patient/caregiver ability to demonstrate management of medications, steps to obtain new/refills of medications and identification of new or changed medications. Assess patient/caregiver ability to verbalize accurate do se/route/frequency/reason f or medication, how to evaluate effectiveness of medication, ongoing lab work needed to ensure therapeutic dosing, drug/food interactions, side effects/adverse reactions, contraindications for medica tions and known drug allergies. Evaluate the effective ness of current treatment regimen and notify the appropriate healthcare provider for the need for changes in the plan of care. Problem:Medications Goal:Understand and follow medication therapy Completed Instructed patient on signs and symptoms related to medication regimen to report to provider. Assessed patient/caregiver ability to demonstrate management of medications safely Assessed patient/caregiver about ability to verbalize accurate dose/route/ frequency/reason for medication. Follow up needs: none, independent. Patient verbalizes understanding of medication management. Instruct on High Risk Medications Description: Instruct patient/caregiver on oral or injectable high-risk medications, including: anticonvulsant, antiretroviral, anticoagulant, antibiotics, chemotherapeutic, hypoglycemic including insulin, immunosuppressant, antipsychotic , and opioids. Problem:Medications Goal:Understand and follow medication therapy Completed Anticoagulant (oral): Instructed patient/caregiver on high risk medication Xeralto Signs and symptoms of bleeding to report to Home Care Agency or MD such as; abdominal pain, black, tarry or bright red stool, coffee ground emesis, coughing up blood, un usual dark purple large bruising, frequent nose bleeds & bloody urine. Avoid falls and report any falls to Home Care Agency or PCP. Foods high in Vitamin K can alter the effects of the medication. Follow up needs: none, independent. Patient verbalize s understanding of medication management. ------- Monitor Vital Signs Description: Monitor blood pressure, pulse, oxygen saturation, respirations Problem:Monitor patient's vital signs every home health visit Goal:Measure vital signs during every home health visit during episode of care Completed Educate Patient on Infection Prevention Description: Instruct patient on signs and symptoms of infection IE: fever, odor, change in color, increased amount of drainage, purulent drainage, warmth. Problem:Infection Prevention Goal:Verbalize signs of infection Completed Educate Family on Infection Prevention Description: Instructed family on signs and symptoms of infection IE: fever, odor, change in color, increased amount of drainage, purulent drainage, warmth. Problem:Infection Prevention Goal:Verbalize signs of infection Completed High Fall Risk Precautions Description: Instruct patient/caregiver to use proper lighting in all areas, stand/sit up slowly, use appropriate footwear when walking, use proper assistive devices, and to keep pathways clear of cords and clutter to prevent falls. Remove/secure throw rugs. Educa te patient on medications and disease processes that increase fall risk, using corrective lenses as prescribed, placing hard to reach items within reach, what to do in the event of a fall and to report any falls to the home health agency. Problem:Fall Precautions/Safety Concerns Goal:Demonstrate fall and safety precautions Completed Instructed patient on fall risk prevention including: using proper lighting in all areas, standing/sitting up slowly, using appropriate footwear when walking, keeping pathways clear of cords and clutter and removing/securing throw rugs Patient verbali zed understanding Instruct on Depression Description: Instruct patient/caregiver on signs/symptoms of depression. Problem:Depression Goal:Demonstrate knowledge of depression Completed Assess signs/symptoms of Depression Description: Assess signs/symptoms of depression and emotional well-being. Problem:Depression Goal:Demonstrate knowledge of depression Completed Assess depression Description: Assess depression. Problem:Depression Goal:Demonstrate knowledge of depression Completed Instruct on pain management techniques Description: Instruct in pharmacologic and nonpharmacologic pain management techniques. Problem:Pain Goal:Report that pain has been reduced or controlled Completed Instruct on prevention of pulmonary aspiration Description: Instruct patient/caregiver on prevention of pulmonary aspiration (keep head of bed elevated at 30-45 degrees at all times during administration of feedings). Problem:Knowledge Deficit Enteral Feeding Goal:Demonstrate enteral feeding care Completed Instruct maintain tube patency Description: Instruct patient/caregiver on methods to maintain tube patency and prevent tube clogging. Instruct on flush feeding tube immediately before and after intermittent feedings, flush at standardized intervals for continuous feedi ngs, flush before and after medication administration. Problem:Knowledge Deficit Enteral Feeding Goal:Demonstrate enteral feeding care Completed Instruct on enteral feeding Description: Instruct patient/caregiver in administration of enteral tube feeding per med list Problem:Knowledge Deficit Enteral Feeding Goal:Demonstrate enteral feeding care Completed Instruct on Home Management Description: Instruct patient/caregiver in how to care for enteral access, perform enteral feedings and flushes, how to identify signs of infection, troubleshoot complications and when to contact agency. Problem:Knowledge Deficit Enteral Feeding Goal:Demonstrate enteral feeding care Completed Instruct on enteral access care Description: Skilled nurse/patient/caregiver to perform care to enteral access daily and PRN. Enteral feeding access type peg tube. Problem:Knowledge Deficit Enteral Feeding Goal:Demonstrate enteral feeding care Completed Skilled assessment pain Description: Assess pain. (See results on form) Problem:Pain Goal:Report reduction/control of pain Completed Instruct on pain management techniques Description: Instruct patient/caregiver in methods to manage pain including splinting chest with pillow to perform coughing and deep breathing exercises. Problem:Pain Goal:Report reduction/control of pain Completed Assess signs and symptoms of chest pain Description: Assess for signs/symptoms of chest pain, reported or observed. Problem:Pain Goal:Report reduction/control of pain Completed Instruct on stress reduction Description: Instruct patient/caregiver in how stress impacts health and in methods to reduce stress. Problem:Alteration in coping Goal:Demonstrate ability to manage CHF Completed documented in this encounter Care Teams Producer Director Relationship Specialty Start Date End Date Mo Mitchell MD [address] [facility] [place] [address] PCP - General Internal Medicine 10/31/24 documented as of this encounter
--- OUTSIDE RECORDS SUMMARY | 2025-02-13 12:09 | XMS_ITS | Clinical Summary ---
Author Organization [facility] Address [address] [place] [address] [place] [address] Care Team Providers Care Twx Operator Name Role Phone Unavailable Primary Care Provider [...] 2021 PAP SMEAR 2021 INFLUENZA VACCINE (#1) 2025 DTAP/TDAP/TD VACCINES (3 - Td or Tdap) 12/06/2026, 12/06/2016 Insurance [employer]
--- OUTSIDE RECORDS SUMMARY | 2025-02-13 12:10 | XMS_ITS | Clinical Summary ---
Author Organization [facility] Address [address] [place] [address] Care Team Providers Care Web Development Director Name Role Phone Mo Mitchell MD Primary Care Provider Allergies Active Allergy Reactions Criticality Noted Date Comments Latex Hives Medium 02/27/2017 Medications famotidine (PEPCID) 20 mg tabletIndication s:gastroesophage al reflux disease Take 1 tablet (20 mg total) by mouth daily 7 tablet 06/12/20 22 Active megestroL (MEGACE) 20 mg tablet Take 1 tablet (20 mg total) by mouth 2 (two) times a day Active lactose-reduced food with fibr 0.06 gram-1.5 kcal/mL liquid Take by mouth A ctive ferrous sulfate 325 mg (65 mg of elemental iron) tabletIndication s:Iron Deficiency Anemia Take 1 tablet (325 mg total) by mouth 2 (two) times a day Active folic acid (FOLVITE) 1 mg tabletIndication s:Folate Deficiency Take 1 tablet by mouth daily Active thiamine (VITAMIN B1) 100 mg tabletIndication s:Thiamine Deficiency Take 1 tablet by mouth daily Active busPIRone (BUSPAR) 15 mg tabletIndication s:Generalized Anxiety Disorder Take 1 tablet (15 mg total) by mouth 3 (three) times a day 90 tablet 11/29/19 25 Active cyanocobalamin (Vitamin B-12) 1,000 mcg tabletIndication s:Prevention of Vitamin B12 Deficiency Take 1 tablet (1,000 mcg total) by mouth daily 30 tablet 11/30/19 25 Active ergocalciferol (VITAMIN D) 50,000 unit capsuleIndicatio ns:Vitamin D Deficiency Take 1 capsule (50,000 Units total) by mouth once a week 4 capsule 11/30/19 25 Active magnesium oxide (MAG-OX) 400 mg (241.3 mg elemental magnesium) tabletIndication s:hypomagnesemia Take 2 tablets (800 mg total) by mouth 2 (two) times a day 120 tablet 11/29/19 25 Active loperamide (IMODIUM) 0.133 mg/mL solutionIndicati ons:diarrhea Take 7.5 mL (1 mg total) by mouth 3 (three) times a day as needed for diarrhea 100 mL 11/29/19 25 Active multivit nlxrmdgb-xbua-QR -calcium (THERA-M) 9 mg iron-400 mcg tabletIndication s:Vitamin Deficiency Administer 1 tablet per feeding tube daily 30 tablet 11/30/19 25 Active nadoloL (CORGARD) 20 mg tabletIndication s:hypertension Take 1 tablet (20 mg total) by mouth daily 30 tablet 11/30/19 25 Active nicotine (NICODERM CQ) 14 mgIndications:Sm oking Cessation Place 1 patch on the skin daily for 24 hours 30 patch 11/30/19 25 Active OLANZapine (ZyPREXA) 5 mg tabletIndication s:Depression Treatment Adjunct Take 1 tablet (5 mg total) by mouth nightly 30 tablet 11/29/19 25 Active naloxone (NARCAN) 4 mg/actuation spray,non-aeroso lIndications:Opi oid Toxicity Administer 1 spray into affected nostril(s) as needed for opioid reversal Call 911. Administer a single spray in one nostril. Repeat every 3 minutes as needed if no or minimal response. 2 each 11/29/19 25 Active oxyCODONE (ROXICODONE) 5 mg immediate release tabletIndication s:Pain Take 5 mg by mouth every 8 (eight) hours as needed for pain. Indications: pain Active rivaroxaban (XARELTO) 20 mg tablet Take 1 tablet (20 mg total) by mouth daily with dinner 30 tablet 5 12/22/19 25 Active aspirin 81 mg capsuleIndicatio ns:myocardial infarction prevention Take 1 tablet by mouth daily. 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 Indications: low amount of magnesium in the blood Active potassium chloride ER (KLOR-CON) 10 mEq CR tabletIndication s:hypokalemia Take 30 mEq by mouth 2 (two) times a day. Indications: low amount of potassium in the blood Active OLANZapine (ZyPREXA) 5 mg tabletIndication s:Depression Treatment Adjunct Take 5 mg by mouth nightly. Indications: additional treatment for major depressive disorder Active nadoloL (CORGARD) 20 mg tabletIndication s:Prevention of Bleeding Esophageal Varices Take 20 mg by mouth daily. Indications: prevent bleeding varicose vein in the esophagus Active ergocalciferol, vitamin D2, 50 mcg (2,000 unit) tabletIndication s:Vitamin D Deficiency Take 1 capsule by mouth once a week. Indications: low vitamin D levels Active busPIRone (BUSPAR) 15 mg tabletIndication s:Generalized Anxiety Disorder Take 15 mg by mouth 3 (three) times a day. Indications: repeated episodes of anxiety Active cyanocobalamin (Vitamin B-12) 1,000 mcg tabletIndication s:Prevention of Vitamin B12 Deficiency Take 1,000 mcg by mouth daily. Indications: prevention of vitamin B12 deficiency Active methocarbamoL (ROBAXIN) 750 mg tabletIndication s:Muscle Spasm Take 750 mg by mouth 4 (four) times a day. Indications: muscle spasm Active cefadroxil (DURICEF) 500 mg capsuleIndicatio ns:Other (complete free text reason below),bacteremi a; endocarditis Take 2 capsules (1,000 mg total) by mouth 2 (two) times a day for 28 days 112 capsule 12/28/19 25 025 Discontin ued(Thera py completed ) Active Problems Problem Noted Date Diagnosed Date MSSA bacteremia 11/28/2024 Assessment & Plan (01/24/2025 1:03 PM CDT): - Doing well on exam today with no acute complaints. Her last labs have improved and electrolytes are now normal. She has gained 8 pounds since last visit and has been focusing on improving her nutrition. She denies fevers or chills. Repeat echo showed grossly stable vegetation vs thrombus. - Ok to stop oral cefadroxil today - Recommend surveillance blood cultures x 2 in at least 1 week. Will reach out to home health to see if they are able to obtain - She should call with any fevers, chills, or other concerns of recurrent infection. - Call to reschedule cardiology visit Assessment & Plan (12/27/2024 1:23 PM CDT): [...] Encounters Date Type Department Care Team Description 02/12/2025 2:30 PM CDT Home Care Visit [address] [place] [address] Nayely Pedroza, BRITTANIE SN HOME VISIT 02/07/2025 10:00 AM CDT Home Care Visit [address] [place] [address] Isabelle Campbell, OT OT INITIAL EVALUATION 02/07/2025 9:00 AM CDT Home Care Visit [address] [place] [address] Pia Swan, BRITTANIE SN HOME VISIT 02/07/2025 Telephone [facility] Infectious Diseases [address] [facility] [address] [place] [address] Rosangela Simental, [facility] 02/06/2025 2:00 PM CDT Home Care Visit [address] [place] [address] Thang Solorzano, PT PT INITIAL EVALUATION 02/05/2025 Home Care Visit [address] [place] [address] Pia Moon, RN TELEPHONE ENCOUNTER 02/01/2025 Telephone [facility] Cardiology [facility] 8th Floor [address] [place] [phone] Scheduling Appointments 01/31/2025 2:00 PM CDT Home Care Visit [address] [place] [address] Nayely Pedroza, BRITTANIE SN OASIS RECERTIFICATION 01/31/2025 Plan of Care Documentation [address] [place] [address] 01/29/2025 Home Care Visit [address] [place] [address] Nayely Pedroza, RN TELEPHONE ENCOUNTER 01/28/2025 Home Care Visit [address] [place] [address] Nayely Pedroza, RN TELEPHONE ENCOUNTER 01/24/2025 9:40 AM CDT Office Visit [facility] Infectious Diseases [address] [facility] [address] [place] [address] Dorothea Stephen NP MSSA bacteremia (Primary Dx) 01/22/2025 12:40 PM CDT - 01/22/2025 11:59 PM CDT Hospital Encounter [facility] [address] [place] [address] Discharge Disposition: Discharge to home or self care 01/22/2025 12:00 PM CDT Home Care Visit [address] [place] [address] Nayely Pedroza, BRITTANIE SN HOME VISIT 01/18/2025 10:30 AM CDT Home Care Visit [address] [place] [address] Billy Zarco RN SN OASIS RESUMPTION OF CARE 01/18/2025 Plan of Care Documentation [address] [place] [address] 01/17/2025 Orders Only [facility] Medical Group Cardiology [address] [place] [address] Oz Noble MD 01/17/2025 Home Care Visit [address] [place] [address] Pia Moon, RN SN OASIS TRANSFER W/OUT DC 01/16/2025 Home Care Visit [address] [place] [address] Pia Moon, RN TELEPHONE ENCOUNTER 01/15/2025 10:00 AM CDT Office Visit [facility] Cardiothoracic Surgery [address] [facility] Advanced Medicine 8th Floor [address] Room [address] [phone] Bo Fried MD Mass of left cardiac ventricle 01/15/2025 8:15 AM CDT - 01/15/2025 11:59 PM CDT Hospital Encounter [facility] Cardiac Diagnostic Lab [address] [facility] 8th [place] [phone] Bo Fried MD MSSA bacteremia; Thrombocytopenia Discharge Disposition: Discharge to home or self care 01/14/2025 Telephone [facility] Home Care Services [address] [facility] [address] [place] [address] SalasOndina [facility] 01/11/2025 Telephone [facility] Home Care Services [address] [facility] [address] [place] [phone] Vidhi Martin 01/09/2025 Telephone [facility] Infectious Diseases [address] [facility] [address] [place] [phone] Sidney Gould Jr., RN 01/08/2025 Telephone [facility] Home Care Services [address] [facility] [address] [place] [address] Vidhi Martin 01/01/2025 2:10 PM CDT - 01/01/2025 11:59 PM CDT Hospital Encounter [facility] [address] [place] [address] Discharge Disposition: Discharge to home or self care 01/01/2025 2:00 PM CDT Home Care Visit [address] [place] [address] Nayely Pedroza, BRITTANIE SN HOME VISIT 01/01/2025 Telephone [facility] Infectious Diseases [address] [facility] [address] [place] [phone] Sidney Gould Jr., RN 12/31/2024 Telephone [facility] Cardiology [facility] 8th [place] [address] [place] [address] Nani Melchor NP 12/31/2024 Orders Only [facility] Infectious Diseases [address] [facility] [address] [place] [phone] Dorothea Stephen, BRAX[place] 12/28/2024 11:00 AM CDT Home Care Visit [address] [place] [address] Nayely Pedroza, RN SN HOME VISIT 12/27/2024 2:00 PM CDT Home Care Visit [address] [place] [address] Thang Solorzano, PT PT DISCIPLINE DISCHARGE 12/27/2024 9:13 AM CDT - 12/27/2024 11:59 PM CDT Hospital Encounter [facility] [address] [place] [address] Discharge Disposition: Discharge to home or self care 12/27/2024 8:40 AM CDT Office Visit [facility] Infectious Diseases [address] [facility] [address] [place] [address] Dorothea Stephen, [place] MSSA bacteremia (Primary Dx); Encounter for screening examination for sexually transmitted disease 12/27/2024 Telephone [facility] Infectious Diseases [address] [facility] [address] [place] [address] Dorothea Stephen, [place] 12/25/2024 Telephone [facility] Primary Care Medicine Clinic [address] [facility] [address] [place] [address] Veronika Ocampo MD 12/21/2024 2:00 PM CDT Home Care Visit [address] [place] [address] Thang Solorzano, PT PT HOME VISIT 12/21/2024 11:30 AM CDT Home Care Visit [address] [place] [address] Nayely Pedroza, RN SN HOME VISIT 12/21/2024 Orders Only [facility] Cardiology [address] [facility] 8th [place] [address] [place] [phone] Nani Melchor, [place] 12/19/2024 11:00 AM CDT Home Care Visit [address] [place] [address] Thang Solorzano, PT PT HOME VISIT 12/19/2024 Home Care Visit [address] [place] [address] Thang Solorzano, PT CASE COMMUNICATION 12/13/2024 10:45 AM CDT Home Care Visit [address] [place] [address] Khushboo Jarvis, PT PT HOME VISIT 12/11/2024 2:30 PM CDT Home Care Visit [address] [place] [address] Khushboo Jarvis, PT PT HOME VISIT 12/11/2024 1:00 PM CDT Home Care Visit [address] [place] [address] Nayely Pedroza, RN SN HOME VISIT 12/07/2024 SHOP/CHAP Subsequent Outreach [facility] OP CASE MANAGEMENT [address] [place] [address] Neeta Ott, BRITTANIE 12/06/2024 12:30 PM CDT Home Care Visit [address] [place] [address] Nayely Pedroza, BRITTANIE SN HOME VISIT 12/06/2024 11:00 AM CDT Home Care Visit [address] [place] [address] Isabelle Campbell, OT OT INITIAL EVALUATION 12/05/2024 SHOP/CHAP Subsequent Outreach [facility] OP CASE MANAGEMENT [address] [place] [address] Neeta Ott, BRITTANIE 12/04/2024 SHOP/CHAP Subsequent Outreach [facility] OP CASE MANAGEMENT [address] [place] [address] Neeta Ott, RN 12/04/2024 Home Care Visit [address] [place] [address] Nayely Pedroza, RN CARE CONFERENCE 12/03/2024 1:10 PM CDT Telemedicine [address] [facility] [place] [address] Yamilex Mathew, [place] Torsades de pointes (HCC) (Primary Dx); MSSA bacteremia 12/03/2024 10:00 AM CDT Home Care Visit [address] [place] [address] Thang Solorzano, PT PT INITIAL EVALUATION 12/03/2024 Home Care Visit [address] [place] [address] Billy Zarco, RN TELEPHONE ENCOUNTER 12/03/2024 Home Care Visit [address] [place] [address] Thang Solorzano, PT TELEPHONE ENCOUNTER 12/01/2024 12:00 PM CDT Home Care Visit [place] [address] [address] [place] [address] Billy Zarco, RN SN OASIS START OF CARE 12/01/2024 Plan of Care Documentation [place] [address] [address] [place] [address] 11/30/2024 Orders Only [facility] Cardiothoracic Surgery [facility] 8th Floor [address] [place] [phone] Lee Elena MD Mass of left cardiac ventricle (Primary Dx) 11/29/2024 Telephone [facility] Home Care Services [address] [facility] [address] [place] [address] Dora Sandra 11/29/2024 Orders Only Internal Medicine Alex Wynn MD 11/29/2024 SHOP/CHAP Initial Outreach [facility] OP CASE MANAGEMENT [address] [place] [phone] Neeta Ott RN 11/29/2024 SHOP/CHAP Initial Eligibility Review [facility] OP CASE MANAGEMENT [address] [place] [address] Neeta Ott RN 11/28/2024 Home Care Visit [facility] Home Health - [address] [place] [address] Hortensia Valentino, BRITTANIE SN TRIAGE ENCOUNTER 11/28/2024 Orders Only [facility] Cardiothoracic Surgery [address] [facility] 8th Floor [address] [place] [phone] Bo Fried MD MSSA bacteremia (Primary Dx); Thrombocytopenia 11/23/2024 Telephone [facility] Home Care Services [address] [place] [address] Dora Sandra 11/14/2024 1:40 PM CDT Anesthesia Event [facility] [address] [place] [address] Rudy Licona MD 10/31/2024 2:44 AM CDT - 11/28/2024 3:29 PM CDT Hospital Encounter [address] [phone] Rahul Ramirez MD Vazquez Guillamet, MD Arnulfo Beyer, [...] Medical History Date Comments Mitral valve prolapse Family History Medical History Relation Name Comments Heart disease Maternal Grandmother Heart disease Mother Relation Name Status Comments Maternal Grandmother Mother Social History Tobacco Use Types Packs/Day Years [...] materials from doctor or pharmacy Sometimes 01/18/2025 [facility] Utilities Answer Date Recorded In the past 12 months has th e [employer], gas, oil, or water company threatened to [...] any clubs o r organizations such as baptist groups, unions, fraternal or athletic groups, or [...] any time in the past 12 m [facility], were you homeless or living in a [...] on file 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 Gender Identity Not on file Sexual Orientation [...] (110 lb) 02/12/2025 2:37 PM CDT Height 154.9 cm (5' 0.98) 01/24/2025 9:44 AM CD T Body Mass Index 20.8 01/24/2025 9:44 AM CDT Plan of Treatment Health Maintenance [...] Cancer Screening 09/14/2017 09/14/2016 Influenza Vaccine (#1) 2025 DTaP/Tdap/Td Vaccine (3 - Td or Tdap) 12/06/2026 12/06/2016, 12/06/2016, 05/10/2005 Hepatitis C Screening Completed 11/03/2024, 017 Procedures Procedure Name Priority Date/Time Associated Diagnosis Comments BLOOD MISC TO MELBER Routine 01/22/2025 12 :40 PM CDT EGFR Routine 01/22/2025 12:40 PM CDT DIFFERENTIAL AUTO Routine 01/22/2025 12: 40 PM CDT IRON PROFILE W/ IBC Routine 01/22/2025 1 2:40 PM CDT VITAMIN B12 Routine 01/22/2025 12:40 PM CDT MAGNESIUM Routine 01/22/2025 12:40 PM CDT FOLATE Routine 01/22/2025 12:40 PM CDT CBC WITH AUTO DIFFERENTIAL Routine 01/22/2025 12:40 PM CDT COMPREHENSIVE METABOLIC PANEL Routine 01/22/2025 12:40 PM CDT TRANSTHORACIC ECHO (TTE) COMPLETE W DOPPLER/CF W CONTRAST Routine 01/15/2025 9:57 AM CDT MSSA bacteremia Thrombocytopenia CARDIOLOGY DOCUMENT SCAN Routine 01/09/2025 3:19 PM CDT EGFR Routine 01/01/2025 2:10 PM CDT BASIC [...] 1:20 PM CDT GENOMICS TRACKING ORDER Routine 11/21/19 10:37 AM CDT GENOMICS ([facility]) Routine [...] WO CONTRAST Routine 11/14/2024 2:19 PM CDT NM AN PROCEDURE PLACEHOLDER Routine 11/14/2024 1:56 PM CDT NM AN ELECTIVE ENDOTRACHEAL AIRWAY Routine 11/14/2024 1:56 PM CDT POCT GLUCOSE DEVICE Routine 11/14/2024 1 2:33 PM CDT POCT GLUCOSE DEVICE Routine 11/14/2024 1 0:49 AM CDT POCT GLUCOSE DEVICE Routine 11/14/2024 7 :36 AM CDT POCT GLUCOSE DEVICE Routine 11/14/2024 4 :28 AM CDT BLOOD CULTURE Routine 11/14/2024 12:27 AM CDT BLOOD CULTURE Routine 11/14/2024 12:16 AM CDT HEPATITIS PANEL, ACUTE Routine 2:31 PM CDT THINPREP TIS PAP REFLEX HPV MRNA E6/E7, CHLAMYDIA/N.GONORRHOEAE Routine 09/14/2016 12:56 PM WELFARE ADMINISTRATOR from Last 3 Months or Most Recently Relevant to Health Maintenance Results * BLOOD MISC TO MELBER (01/22/2025 12:40 PM CDT) Test name, chem CDTA,CARBOHYD RATE DEFICIENT TRANSFERRIN,A DULT SCRE [facility] Comment:Credited, test not i ndicated. Misc see comment [facility] Comment:Credited, test not i ndicated. Blood 01/22/2025 12:4 0 PM CDT 01/24/2025 2:14 PM CDT us Notinfile Unknown LAB BLOOD ORDERABLES Final Res ult Performing Organization Address [facility] Co de Phone Number [facility] [place] [address] [facility] * eGFR (01/22/2025 12:40 PM CDT) Pathologist [facility] Emergency Department eGFR >90 >=60 mL/min/1. 73 [...] interpretive data was last reviewed 2021. Blood 01/22/2025 12:4 0 PM CDT 01/22/2025 4:11 PM CDT us Notinfile Unknown LAB BLOOD ORDERABLES Final Res ult Performing Organization Address [facility]/ZIP Co de Phone Number [facility] [place] [address] * Differential, auto (01/22/2025 12:40 PM CDT) Neutrophil abs 2.80 1.50 - 6.50 K/cumm Imm gran abs 0.00 0.00 - 0.10 K/cumm [facility] Lymphocyte abs 2.66 0.80 - 3.30 K/cumm [facility] Monocyte abs 0.21 0.20 - 0.80 K/cumm [facility] Eosinophil abs 0.14 0.00 - 0.50 K/cumm [facility] Basophil abs 0.05 0.00 - 0.10 K/cumm [facility] Neutrophil pct 47.7 % [facility] Comment: Interpretive Data Percent cell count reference ranges are not reported, since discordance with absolute values may lead to misinterpretation of CBC data. Current Interpretive Data was last revised on 2017. Imm gran pct 0.0 % [facility] Comment: Interpretive Data Percent cell count reference ranges are not reported, since discordance with absolute values may lead to misinterpretation of CBC data. Current Interpretive Data was last revised on 2017. Lymphocyte pct 45.4 % [facility] Comment: Interpretive Data Percent cell count reference ranges are not reported, since discordance with absolute values may lead to misinterpretation of CBC data. Current Interpretive Data was last revised on 2017. Monocyte pct 3.6 % [facility] Comment: Interpretive Data Percent cell count reference ranges are not reported, since discordance with absolute values may lead to misinterpretation of CBC data. Current Interpretive Data was last revised on 2017. Eosinophil pct 2.4 % [facility] Comment: Interpretive Data Percent cell count reference ranges are not reported, since discordance with absolute values may lead to misinterpretation of CBC data. Current Interpretive Data was last revised on 2017. Basophil pct 0.9 % [facility] Comment: Interpretive Data Percent cell count reference ranges are not reported, since discordance with absolute values may lead to misinterpretation of CBC data. Current Interpretive Data was last revised on 2017. Blood 01/22/2025 12:4 0 PM CDT 01/22/2025 3:52 PM CDT us Notinfile Unknown LAB BLOOD ORDERABLES Final Res ult Performing Organization Address City/[facility]/ZIP Co de Phone Number [facility] [place] [address] * (ABNORMAL) Iron profile w/ IBC (01/22/2025 12:40 PM CDT) Pathologist [facility] Emergency Department Iron 60 35 - 145 mcg/dL TIBC 322 250 - 400 mcg/dL [facility] Transferrin saturation 19(L) 20 - 50 % [facility] Blood 01/22/2025 12:4 0 PM CDT 01/22/2025 3:52 PM CDT us Notinfile Unknown LAB BLOOD ORDERABLES Final Res ult Performing Organization Address [facility] Co de Phone Number [facility] [place] [address] * (ABNORMAL) CBC with auto differential (01/22/2025 12:40 PM CDT) [facility] WBC 5.86 3.80 - 9.90 K/cumm Hgb 12.9 11.9 - 15.5 g/dL [facility] Hct 39.0 35.6 - 45.5 % [facility] Plt 170 150 - 400 K/cumm [facility] MPV 11.0 9.1 - 12.3 fL [facility] RBC 4.01 3.90 - 5.20 M/cumm [facility] MCV 97.3(H) 81.3 - 96.4 fL [facility] MCH 32.2 27.1 - 33.3 pg [facility] MCHC 33.1 32.3 - 35.7 g/dL [facility] RDW CV 13.4 11.1 - 14.9 % [facility] RDW SD 47.5 35.7 - 48.1 fL [facility] NRBC abs 0.00 0.00 - 0.01 K/cumm [facility] Blood 01/22/2025 12:4 0 PM CDT 01/22/2025 3:52 PM CDT us Notinfile Unknown LAB BLOOD ORDERABLES Final Res ult Performing Organization Address [facility] de Phone Number [facility] [place] [address] * Magnesium (01/22/2025 12:40 PM CDT) Magnesium 2.0 1.4 - 2.5 mg/dL Blood 01/22/2025 12:4 0 PM CDT 01/22/2025 3:52 PM CDT us Notinfile Unknown LAB BLOOD ORDERABLES Final Res ult Performing Organization Address [facility] de Phone Number [facility] [place] [address] * Folate (01/22/2025 12:40 PM CDT) Folic acid >20.0 >=5.0 ng/mL Blood 01/22/2025 12:4 0 PM CDT 01/22/2025 3:52 PM CDT us Notinfile Unknown LAB BLOOD ORDERABLES Final Res ult Performing Organization Address [facility] de Phone Number [facility] [place] [address] * Vitamin B12 (01/22/2025 12:40 PM CDT) Vitamin B12 815 230 - 1,250 pg/mL Blood 01/22/2025 12:4 0 PM CDT 01/22/2025 3:52 PM CDT us Notinfile Unknown LAB BLOOD ORDERABLES Final Res ult Performing Organization Address [facility]/ZIP Co de Phone Number [facility] [place] [address] * (ABNORMAL) Comprehensive metabolic panel (01/22/2025 12:40 PM CDT) Sodium 135 135 - 145 mmol/L Potassium, pl 3.4 3.3 - 4.9 mmol/L [facility] Chloride 98 97 - 110 mmol/L [facility] CO2 23 22 - 32 mmol/L [facility] Anion gap 14 2 - 15 mmol/L [facility] BUN 9 6 - 25 mg/dL [facility] Creatinine 0.63 0.60 - 1.10 mg/dL [facility] Glucose 85 70 - 199 mg/dL [facility] Comment: Interpretive Data Fasting glucose >/= [...] interpretive data was last revised 2022. Calcium 10.1 8.5 - 10.3 mg/dL [facility] Bilirubin, total 0.4 0.1 - 1.2 mg/dL [facility] Protein, pl 7.5 6.5 - 8.5 g/dL [facility] Albumin 4.1 3.5 - 5.0 g/dL [facility] Alk phos 139(H) 40 - 130 Units/L [facility] ALT 33 7 - 45 Units/L [facility] AST 58(H) 10 - 45 Units/L [facility] Blood 01/22/2025 12:4 0 PM CDT 01/22/2025 3:52 PM CDT us Notinfile Unknown LAB BLOOD ORDERABLES Final Res ult SHONA [facility] Sydni [facility] Department [place] [address] * TRANSTHORACIC ECHO (TTE) COMPLETE W DOPPLER/CF W CONTRAST (01/15/2025 9:57 AM CDT) EF Mod BP 55 % CONS SCIMAGE Anatomical Region Laterality Modality Ultrasound 01/15/2025 8:50 AM CDT Narrative 01/15/2025 11:28 AM CDT [facility] Cardiac [place] [address] Transthoracic Echocardiographic Report Patient Name: HAYLEY LEÓN L : 1990 (34y 11m) Gender: F Study Date: 01/15/2025 08:50:13 AM Ht(Inch): 61 Wt(Lb): 102.07 BSA: 1.41 Hydrometer Calibrator: Roza. Watkins [facility] Location: [facility] Order Provider: BO FRIED Heart Rate: 81 BMI: 19.28 BP: 110 / 76 Ref Provider: BO FRIED PROCEDURES: Echocardiographic Report: Transthoracic complete echo with contrast, 2D, spectral and tissue Doppler, color flow Doppler, M-mode. Contrast: 0.8 ml Optison Administered, (2.2 ml wasted). Technically difficult study due to: Body habitus. Poor acoustic windows. INDICATIONS: R78.81 Bacteremia, B95.61 Methicillin susceptible Staphylococcus aureus infection as the cause of diseases classified elsewhere, and D69.6 Thrombocytopenia, unspecified. CONCLUSIONS: 1. Normal LV wall thickness. Normal left ventricular systolic function. The Ejection Fraction (Moon's) is measured at 55 %. Normal diastolic function. Again visualized LV thrombus vs endocarditis isolated to apex and septal wall measuring 1.58cm x 0.54cm. Grossly unchanged from prior. 2. Normal right ventricular size. Normal right ventricular systolic function. 3. The left atrium is normal in size. 4. Mild mitral valve regurgitation. 5. No aortic valve stenosis. 6. Mild tricuspid regurgitation. 7. Normal pericardium without pericardial effusion. COMPARISONS: No change compared to prior study on: 11/26/2024. ATTESTATION: I have personally reviewed and interpreted this study without fellow or resident. - DISCLAIMER: The study images and the final report will be retained in the patient chart by the Echo Laboratory for the legally required time period. This chart constitutes the legal record of any testing performed. FINDINGS: Left Ventricle: Normal LV wall thickness. Normal left ventricular systolic function. The Ejection Fraction (Moon's) is measured at 55 %. Normal diastolic function. Again visualized LV thrombus vs endocarditis isolated to apex and septal wall measuring 1.58cm x 0.54cm. Grossly unchanged from prior. Regional Wall Motion: There are no regional wall motion abnormalities. Right Ventricle: Normal right ventricular size. Normal right ventricular systolic function. Left Atrium: The left atrium is normal in size. Right Atrium: The right atrium is normal in size. Atrial Septum: Normal interatrial septum. Mitral Valve: Mitral valve leaflets appear mildly thickened. Mild mitral valve regurgitation. No stenosis present. Aortic Valve: Normal trileaflet aortic valve. No aortic regurgitation. No aortic valve stenosis. Tricuspid Valve: Normal tricuspid valve structure. Mild tricuspid regurgitation. No tricuspid valve stenosis. Pulmonic Valve: Normal pulmonic valve structure. Mild pulmonic regurgitation. No pulmonic valve stenosis present. Pericardium: Normal pericardium without pericardial effusion. Aorta: Normal aortic root size at sinuses of Valsalva. IVC: IVC is normal in size. The estimated RA pressure is 3 mmHg. PASP: Unable to determine PASP due to inadequate TR jet. Rhythm: Normal Sinus rhythm was seen during the study. MEASUREMENTS: 2D/MM Value Range Doppler Value Range LVIDd 2D 4.21 cm [ 3.80 - 5.20 ] AV Peak Alvaro 0.9 m/s [ 1.0 - 1.7 ] LVIDs 2D 3.11 cm [ 2.20 - 3.50 ] AV Peak PG 3.24 mmHg IVSd 2D 0.60 cm [ 0.60 - 0.90 ] AV Mean PG 2 mmHg LVPWd 2D 0.55 cm [ 0.60 - 0.90 ] AV VTI 14.9 cm LV Thickness Ratio 1.1 LVOT Peak Alvaro 0.7 m/s [ 0.7 - 1.1 ] LV FS 2D 26.13 % [ 27.00 - 45.00 ] LVOT Peak PG 1.96 mmHg LV Mass 2D 69.03 g LVOT Mean PG 1 mmHg LV Mass Index 2D 48.96 g/m2 LVOT VTI 12.7 cm RWT 0.26 LVOT Diam 1.88 cm EDV Mod BP 86.16 ml [ 46.00 - 106.00 ] JT VTI 2.36 cm2 LV EDV Index 61.11 ml/m2 LVOT/AV VTI 0.85 - Dimensionless index (DVI) ESV Mod BP 39.05 ml [ 14.00 - 42.00 ] MV E Peak Alvaro 0.6 m/s [ 0.6 - 1.3 ] EF Mod BP 55 % [ 54 - 74 ] MV A Peak Alvaro 0.6 m/s [ 1.0 - 1.2 ] LA Length 4C 4.36 cm MV E/A 1.1 ratio [ 0.8 - 1.5 ] LA Length 2C 3.64 cm MV Decel Time 292.25 msec [ 104.00 - 258.00 ] LA Volume BP 22.29 ml Med E` Alvaro 8.3 cm/sec [ 8.0 - 25.0 ] LA Volume Index 15.81 ml/m2 [ 16.00 - 34.00 ] Lat E` Alvaro 12.9 cm/sec [ 10.0 - 25.0 ] RV Base Dimen 2D 2.9 cm [ 2.5 - 4.2 ] Average E/E` 5.66 TAPSE 2.00 cm [ 1.71 - 5.00 ] RV S` 13.98 cm/sec RA Volume 23.53 ml RA Pressure 3 mmHg RA Volume Index 16.69 ml/m2 PV Peak Alvaro 0.6 m/s [ 0.4 - 0.8 ] AoR Diam 2D 2.87 cm [ 2.70 - 3.70 ] PV Peak PG 1.44 mmHg Ao Root Index 2.04 cm/m2 [ 1.00 - 2.00 ] Electronically Signed By: Italo Hill M.D. 01/15/2025 11:26:57 AM CDT Procedure Note Italo Hill MD PhD - 01/15/2025 [facility] Cardiac Diagnostic [place] [address] Transthoracic Echocardiographic Report Patient Name: HAYLEY LEÓN L : 1990 (34y 11m) Gender: F Study Date: 01/15/2025 08:50:13 AM Ht(Inch): 61 Wt(Lb): 102.07 BSA: 1.41 Hydrometer Calibrator: Roza. Watkins [facility] Location: [facility] Order Provider:BO FRIED Heart Rate: 81 BMI: 19.28 BP: 110 / 76 Ref Provider: BO FRIED PROCEDURES: Echocardiographic Report: Transthoracic complete echo with contrast, 2D,spectral and tissue Doppler, color flow Doppler, M-mode. Contrast: 0.8 ml Optison Administered, (2.2 ml wasted). Technically difficult study due to: Body habitus. Poor acoustic windows. INDICATIONS: R78.81 Bacteremia, B95.61 Methicillin susceptible Staphylococcus aureusinfection as the cause of diseases classified elsewhere, and D69.6 Thrombocytopenia,unspecified. CONCLUSIONS: 1. Normal LV wall thickness. Normal left ventricular systolic function.The Ejection Fraction (Moon's) is measured at 55 %. Normal diastolic function. Againvisualized LV thrombus vs endocarditis isolated to apex and septal wall measuring 1.58cmx 0.54cm. Grossly unchanged from prior. 2. Normal right ventricular size. Normal right ventricular systolicfunction. 3. The left atrium is normal in size. 4. Mild mitral valve regurgitation. 5. No aortic valve stenosis. 6. Mild tricuspid regurgitation. 7. Normal pericardium without pericardial effusion. COMPARISONS: No change compared to prior study on: 11/26/2024. ATTESTATION: I have personally reviewed and interpreted this study without fellow orresident. - DISCLAIMER: The study images and the final report will be retained in the patientchart by the Echo Laboratory for the legally required time period. This chart constitutesthe legal record of any testing performed. FINDINGS: Left Ventricle: Normal LV wall thickness. Normal left ventricular systolicfunction. The Ejection Fraction (Moon's) is measured at 55 %. Normal diastolicfunction. Again visualized LV thrombus vs endocarditis isolated to apex and septal wallmeasuring 1.58cm x 0.54cm. Grossly unchanged from prior. Regional Wall Motion: There are no regional wall motion abnormalities. Right Ventricle: Normal right ventricular size. Normal right ventricularsystolic function. Left Atrium: The left atrium is normal in size. Right Atrium: The right atrium is normal in size. Atrial Septum: Normal interatrial septum. Mitral Valve: Mitral valve leaflets appear mildly thickened. Mild mitralvalve regurgitation. No stenosis present. Aortic Valve: Normal trileaflet aortic valve. No aortic regurgitation. Noaortic valve stenosis. Tricuspid Valve: Normal tricuspid valve structure. Mild tricuspidregurgitation. No tricuspid valve stenosis. Pulmonic Valve: Normal pulmonic valve structure. Mild pulmonicregurgitation. No pulmonic valve stenosis present. Pericardium: Normal pericardium without pericardial effusion. Aorta: Normal aortic root size at sinuses of Valsalva. IVC: IVC is normal in size. The estimated RA pressure is 3 mmHg. PASP: Unable to determine PASP due to inadequate TR jet. Rhythm: Normal Sinus rhythm was seen during the study. MEASUREMENTS: 2D/MM Value Range DopplerValue Range LVIDd 2D 4.21 cm [ 3.80 - 5.20 ] AV Peak Vel0.9 m/s [ 1.0 - 1.7 ] LVIDs 2D 3.11 cm [ 2.20 - 3.50 ] AV Peak PG3.24 mmHg IVSd 2D 0.60 cm [ 0.60 - 0.90 ] AV Mean PG2 mmHg LVPWd 2D 0.55 cm [ 0.60 - 0.90 ] AV VTI14.9 cm LV Thickness Ratio 1.1 LVOT Peak Vel0.7 m/s [ 0.7 - 1.1 ] LV FS 2D 26.13 % [ 27.00 - 45.00 ] LVOT Peak PG1.96 mmHg LV Mass 2D 69.03 g LVOT Mean PG1 mmHg LV Mass Index 2D 48.96 g/m2 LVOT VTI12.7 cm RWT 0.26 LVOT Diam1.88 cm EDV Mod BP 86.16 ml [ 46.00 - 106.00 ] JT VTI2.36 cm2 LV EDV Index 61.11 ml/m2 LVOT/AV VTI0.85 - Dimensionless index (DVI) ESV Mod BP 39.05 ml [ 14.00 - 42.00 ] MV E Peak Vel0.6 m/s [ 0.6 - 1.3 ] EF Mod BP 55 % [ 54 - 74 ] MV A Peak Vel0.6 m/s [ 1.0 - 1.2 ] LA Length 4C 4.36 cm MV E/A1.1 ratio [ 0.8 - 1.5 ] LA Length 2C 3.64 cm MV Decel Qpai288.25 msec [ 104.00 - 258.00 ] LA Volume BP 22.29 ml Med E` Vel8.3 cm/sec [ 8.0 - 25.0 ] LA Volume Index 15.81 ml/m2 [ 16.00 - 34.00 ] Lat E` Vel12.9 cm/sec [ 10.0 - 25.0 ] RV Base Dimen 2D 2.9 cm [ 2.5 - 4.2 ] Average E/E`5.66 TAPSE 2.00 cm [ 1.71 - 5.00 ] RV S`13.98 cm/sec RA Volume 23.53 ml RA Pressure3 mmHg RA Volume Index 16.69 ml/m2 PV Peak Vel0.6 m/s [ 0.4 - 0.8 ] AoR Diam 2D 2.87 cm [ 2.70 - 3.70 ] PV Peak PG1.44 mmHg Ao Root Index 2.04 cm/m2 [ 1.00 - 2.00 ] Electronically Signed By: Italo Hill M.D. 01/15/2025 11:26:57 AM CDT Bo Fried MD CV ECHO PROCEDURES Final Result * Cardiology Document Scan (01/09/2025 3:19 PM CDT) Anatomical Region Laterality Modality Other us Oz Noble MD CV CARDIAC SERVICES PRO CEDURES Final Result * eGFR (01/01/2025 2:10 PM CDT) eGFR [...] NP LAB BLOOD ORDERABLES Krystyna l Result [facility] Department [place] [address] * (ABNORMAL) Basic metabolic panel (01/01/2025 2:10 PM CDT) Sodium 139 135 - 145 mmol/L Potassium, pl 2.9(L) 3.3 - 4.9 mmol/L [facility] Chloride 98 97 - 110 mmol/L [facility] CO2 26 22 - 32 mmol/L [facility] Anion gap 15 2 - 15 mmol/L [facility] BUN 11 6 - 25 mg/dL [facility] Creatinine 0.63 0.60 - 1.10 mg/dL [facility] Glucose 91 70 - 199 mg/dL [facility] Comment: Interpretive Data Fasting glucose >/= [...] Calcium 9.2 8.5 - 10.3 mg/dL [facility] Blood 01/01/2025 2:10 PM CDT 01/01/2025 6:04 PM CDT Dorothea Stephen [employer] LAB BLOOD ORDERABLES Krystyna meyers Result [facility] One [facility] Department [place] [address] * Glucose, random (Outreach) (12/27/2024 9:13 AM [...] 12/27/2024 10:38 AM CDT us Dorothea Stephen NP LAB BLOOD ORDERABLES Krystyna l Result [facility] RAMIRE[facility] One [facility] Department [place] [address] * eGFR (12/27/2024 9:13 AM CDT) eGFR [...] NP LAB BLOOD ORDERABLES Krystyna l Result [facility] BACK One [facility] [place] [address] * Differential, auto (12/27/2024 9:13 AM CDT) Neutrophil abs 3.36 1.50 - 6.50 K/cumm Imm gran abs 0.01 0.00 - 0.10 K/cumm [facility] Lymphocyte abs 1.97 0.80 - 3.30 K/cumm CERNER [facility] Monocyte abs 0.37 0.20 - 0.80 K/cumm [facility]ER [facility] Eosinophil abs 0.18 0.00 - 0.50 K/cumm CERNER [facility] Basophil abs 0.04 0.00 - 0.10 K/cumm [facility] Neutrophil pct 56.7 % [facility] Comment: Interpretive Data Percent cell count reference ranges are not reported, since discordance with absolute values may lead to misinterpretation of CBC data. Current Interpretive Data was last revised on 2017. Imm gran pct 0.2 % [facility] Comment: Interpretive Data Percent cell count reference ranges are not reported, since discordance with absolute values may lead to misinterpretation of CBC data. Current Interpretive Data was last revised on 2017. Lymphocyte pct 33.2 % [facility] Comment: Interpretive Data Percent cell count reference ranges are not reported, since discordance with absolute values may lead to misinterpretation of CBC data. Current Interpretive Data was last revised on 2017. Monocyte pct 6.2 % [facility] Comment: Interpretive Data Percent cell count reference ranges are not reported, since discordance with absolute values may lead to misinterpretation of CBC data. Current Interpretive Data was last revised on 2017. Eosinophil pct 3.0 % [facility] Comment: Interpretive Data Percent cell count reference ranges are not reported, since discordance with absolute values may lead to misinterpretation of CBC data. Current Interpretive Data was last revised on 2017. Basophil pct 0.7 % CERNER [facility] Comment: Interpretive Data Percent cell count reference ranges are not reported, since discordance with absolute values may lead to misinterpretation of CBC data. Current Interpretive Data was last revised on 2017. Blood 12/27/2024 9:13 AM CDT 12/27/2024 10:37 AM CDT us Dorothea Stephen [employer] LAB BLOOD ORDERABLES Krystyna l Result Performing Organization Address [facility] Co de Phone Number [facility] Department [place] [address] * (ABNORMAL) Comprehensive metabolic panel, without glucose (Outreach) (12/27/2024 9:13 AM CDT) [facility] Sodium 136 135 - 145 mmol/L Potassium, pl 2.9(L) 3.3 - 4.9 mmol/L [facility] Chloride 98 97 - 110 mmol/L [facility] CO2 24 22 - 32 mmol/L [facility] Anion gap 14 2 - 15 mmol/L [facility] BUN 9 6 - 25 mg/dL [facility] Creatinine 0.64 0.60 - 1.10 mg/dL [facility] Calcium 9.7 8.5 - 10.3 mg/dL [facility] Protein, pl 8.2 6.5 - 8.5 g/dL [facility] Albumin 4.2 3.5 - 5.0 g/dL [facility] Bilirubin, total 0.7 0.1 - 1.2 mg/dL [facility] Alk phos 175(H) 40 - 130 Units/L [facility] AST 51(H) 10 - 45 Units/L [facility] ALT 25 7 - 45 Units/L [facility] Blood 12/27/2024 9:13 AM CDT 12/27/2024 10:38 AM CDT Dorothea Stephen [employer] LAB BLOOD ORDERABLES Krystyna l Result Performing Organization Address [facility]/ZIP Co de Phone Number [facility] Department [place] [address] * (ABNORMAL) CBC with auto differential (12/27/2024 9:13 AM CDT) [facility] WBC 5.93 3.80 - 9.90 K/cumm Hgb 13.9 11.9 - 15.5 g/dL [facility] Hct 40.1 35.6 - 45.5 % [facility] Plt 138(L) 150 - 400 K/cumm [facility] MPV 11.4 9.1 - 12.3 fL [facility] RBC 4.23 3.90 - 5.20 M/cumm [facility] MCV 94.8 81.3 - 96.4 fL [facility] MCH 32.9 27.1 - 33.3 pg [facility] MCHC 34.7 32.3 - 35.7 g/dL [facility] RDW CV 13.0 11.1 - 14.9 % [facility] RDW SD 45.3 35.7 - 48.1 fL [facility] NRBC abs 0.00 0.00 - 0.01 K/cumm [facility] Blood 12/27/2024 9:13 AM CDT 12/27/2024 10:37 AM CDT us Dorothea Stephen NP LAB BLOOD ORDERABLES Krystyna l Result Performing Organization Address City/[facility]/ZIP Co de Phone Number [facility] [place] [address] * Magnesium (12/27/2024 9:13 AM CDT) [facility] Magnesium 1.9 1.4 - 2.5 mg/dL Blood 12/27/2024 9:13 AM CDT 12/27/2024 10:50 AM CDT Mo Villatoro MD LAB BLOOD ORDERABLES Final Resul t Performing Organization Address City/[facility]/ZIP Co de Phone Number [facility] [place] [address] * Blood culture Blood (12/27/2024 9:05 AM CDT) Report Final Report: No growth Blood 12/27/2024 9:05 AM CDT 12/27/2024 11:47 AM CDT Narrative SHONA [facility] - 12/31/2024 12:00 PM CDT [...] performance characteristics have been verified by the [facility] Microbiology Laboratory. For questions about this culture, contact the Microbiology Laboratory at [phone]. Interpretive data was last revised on 24. Dorothea Stephen NP LAB MICROBIOLOGY - GENERA L ORDERABLES Final Result [facility] One [facility] Department [place] [address] * Blood culture Blood (12/27/2024 9:05 AM CDT) Report Final Report: No growth Blood 12/27/2024 9:05 AM CDT 12/27/2024 11:47 AM CDT Narrative [facility] - 12/31/2024 12:00 PM CDT [...] performance characteristics have been verified by the [facility] Microbiology Laboratory. For questions about this culture, contact the Microbiology Laboratory at [phone]. Interpretive data was last revised on 24. Dorothea Stephen NP LAB MICROBIOLOGY - GENERA L ORDERABLES Final Result [facility] [place] [address] * (ABNORMAL) Cystatin C (11/28/2024 10:45 AM CDT) [facility] Cystatin C 1.23(H) 0.60 - 1.20 mg/L Comment: Interpretive Data Cystatin C concentrations vary widely in the first month of life, particularly in pre-term infants. Concentrations gradually diminish to adult levels by 1 year of life. Concentrations tend to rise with diminishing renal function in individuals greater than 60 years of age. Current Interpretive Data was last revised on 2020. Testing performed by: [facility], [facility], [place]., [address] Blood 11/28/2024 10:4 5 AM CDT 11/28/2024 12:03 PM CDT us Alex Wynn MD LAB BLOOD ORDERABLES Final Resu lt Performing Organization Address [facility] Co de Phone Number [facility] Department [place] [address] * eGFR (11/27/2024 9:44 PM CDT) eGFR [...] ORDERABLES Krystyna l Result Performing Organization Address City/[facility]/ZIP Co de Phone Number [facility] Department [place] [address] * (ABNORMAL) Differential, auto (11/27/2024 9:44 PM CDT) Pathologist [facility] Neutrophil abs 2.70 1.50 - 6.50 K/cumm Imm gran abs 0.03 0.00 - 0.10 K/cumm [facility] Lymphocyte abs 2.90 0.80 - 3.30 K/cumm [facility] Monocyte abs 0.50 0.20 - 0.80 K/cumm [facility] Eosinophil abs 0.13 0.00 - 0.50 K/cumm [facility] Basophil abs 0.13(H) 0.00 - 0.10 K/cumm [facility] Neutrophil pct 42.3 % [facility] Comment: Interpretive Data Percent cell count reference ranges are not reported, since discordance with absolute values may lead to misinterpretation of CBC data. Current Interpretive Data was last revised on 2017. Imm gran pct 0.5 % [facility] Comment: Interpretive Data Percent cell count reference ranges are not reported, since discordance with absolute values may lead to misinterpretation of CBC data. Current Interpretive Data was last revised on 2017. Lymphocyte pct 45.4 % [facility] Comment: Interpretive Data Percent cell count reference ranges are not reported, since discordance with absolute values may lead to misinterpretation of CBC data. Current Interpretive Data was last revised on 2017. Monocyte pct 7.8 % [facility] Comment: Interpretive Data Percent cell count reference ranges are not reported, since discordance with absolute values may lead to misinterpretation of CBC data. Current Interpretive Data was last revised on 2017. Eosinophil pct 2.0 % [facility] Comment: Interpretive Data Percent cell count reference ranges are not reported, since discordance with absolute values may lead to misinterpretation of CBC data. Current Interpretive Data was last revised on 2017. Basophil pct 2.0 % [facility] Comment: Interpretive Data Percent cell count reference ranges are not reported, since discordance with absolute values may lead to misinterpretation of CBC data. Current Interpretive Data was last revised on 2017. Blood 11/27/2024 9:44 PM CDT 11/27/2024 10:41 PM CDT us Lee Elena MD LAB BLOOD ORDERABLES Krystyna meyers Result [facility] One [facility] Department [place] [address] * (ABNORMAL) CBC with auto differential (11/27/2024 9:44 PM CDT) Pathologist [facility] WBC 6.39 3.80 - 9.90 K/cumm Hgb 10.5(L) 11.9 - 15.5 g/dL [facility] Hct 32.5(L) 35.6 - 45.5 % [facility] Plt 419(H) 150 - 400 K/cumm [facility] MPV 9.3 9.1 - 12.3 fL [facility] RBC 3.10(L) 3.90 - 5.20 M/cumm [facility] MCV 104.8(H) 81.3 - 96.4 fL [facility] MCH 33.9(H) 27.1 - 33.3 pg [facility] MCHC 32.3 32.3 - 35.7 g/dL [facility] RDW CV 18.6(H) 11.1 - 14.9 % [facility] RDW SD 71.7(H) 35.7 - 48.1 fL [facility] NRBC abs 0.00 0.00 - 0.01 K/cumm [facility] Blood 11/27/2024 9:44 PM CDT 11/27/2024 10:41 PM CDT us Lee Elena MD LAB BLOOD ORDERABLES Krystyna l Result Performing Organization Address City/[facility]/ZIP Co de Phone Number [facility] Department [place] [address] * (ABNORMAL) Vitamin D 25 hydroxy (11/27/2024 9:44 PM CDT) Pathologist [facility] Vitamin D 25-OH 27(L) 30 - 80 ng/mL Blood 11/27/2024 9:44 PM CDT 11/27/2024 10:41 PM CDT us Alex Wynn MD LAB BLOOD ORDERAB[place] [address] * Protime-INR (11/27/2024 9:44 PM CDT) Pathologist [facility] PT 10.2 9.7 - 13.0 sec INR 0.95 0.90 - 1.20 [facility] Comment: Interpretive data Oral anticoagulant therapeutic ranges: Venous thromboembolism prophylaxis or treatment: 2.0-3.0 CARDIOLOGY Standard range: 2.0-3.0 High-intensity range: 2.5-3.5 Refer to indication-specific guidelines for appropriate target ranges for prosthetic heart valve replacement. Current interpretive data was last revised on 2019. Blood 11/27/2024 9:44 PM CDT 11/27/2024 10:45 PM CDT Lee Elena MD LAB BLOOD ORDERABLES Krystyna l Result Performing Organization Address City/[facility]/[place] [address] * (ABNORMAL) Phosphorus (11/27/2024 9:44 PM CDT) [facility] Phosphorus, pl 6.6(H) 2.3 - 4.5 mg/dL Blood 11/27/2024 9:44 PM CDT 11/27/2024 10:41 PM CDT Lee Elena MD LAB BLOOD ORDERABLES [place] [address] * Magnesium (11/27/2024 9:44 PM CDT) [facility] Magnesium 1.6 1.4 - 2.5 mg/dL Blood 11/27/2024 9:44 PM CDT 11/27/2024 10:41 PM CDT Lee Elena MD LAB BLOOD ORDERABLES Krystyna l Result Performing Organization Address [facility] Co de Phone Number [facility] [place] [address] * (ABNORMAL) Hepatic function panel (11/27/2024 9:44 PM CDT) [facility] Bilirubin, total 0.4 0.1 - 1.2 mg/dL Bilirubin, direct 0.2 0.1 - 0.3 mg/dL [facility] Protein, pl 7.3 6.5 - 8.5 g/dL [facility] Albumin 3.4(L) 3.5 - 5.0 g/dL [facility] Alk phos 133(H) 40 - 130 Units/L [facility] ALT 17 7 - 45 Units/L [facility] AST 36 10 - 45 Units/L [facility] Blood 11/27/2024 9:44 PM CDT 11/27/2024 10:41 PM CDT Lee Elena MD LAB BLOOD ORDERABLES Krystyna l Result Performing Organization Address [facility] de Phone Number [facility] Department [place] [address] * (ABNORMAL) Basic metabolic panel (11/27/2024 9:44 PM CDT) Pathologist [facility] Sodium 139 135 - 145 mmol/L Potassium, pl 4.3 3.3 - 4.9 mmol/L [facility] Chloride 101 97 - 110 mmol/L [facility] CO2 31 22 - 32 mmol/L [facility] Anion gap 7 2 - 15 mmol/L [facility] BUN 18 6 - 25 mg/dL [facility] Creatinine 0.50(L) 0.60 - 1.10 mg/dL [facility] Glucose 99 70 - 199 mg/dL [facility] Comment: Interpretive Data Fasting glucose >/= [...] 2022. Calcium 10.0 8.5 - 10.3 mg/dL [facility] Blood 11/27/2024 9:44 PM CDT 11/27/2024 10:41 PM CDT Lee Elena MD LAB BLOOD ORDERABLES Krystyna meyers Result [facility] Department [place] [address] * eGFR (11/26/2024 9:38 PM CDT) eGFR [...] LAB BLOOD ORDERABLES Krystyna meyers Result [facility] [place] [address] * (ABNORMAL) Differential, auto (11/26/2024 9:38 PM CDT) Neutrophil abs 2.02 1.50 - 6.50 K/cumm Imm gran abs 0.03 0.00 - 0.10 K/cumm [facility] Lymphocyte abs 3.04 0.80 - 3.30 K/cumm [facility] Monocyte abs 0.56 0.20 - 0.80 K/cumm [facility] Eosinophil abs 0.10 0.00 - 0.50 K/cumm [facility] Basophil abs 0.11(H) 0.00 - 0.10 K/cumm [facility] Neutrophil pct 34.4 % [facility] Comment: Interpretive Data Percent cell count reference ranges are not reported, since discordance with absolute values may lead to misinterpretation of CBC data. Current Interpretive Data was last revised on 2017. Imm gran pct 0.5 % [facility] Comment: Interpretive Data Percent cell count reference ranges are not reported, since discordance with absolute values may lead to misinterpretation of CBC data. Current Interpretive Data was last revised on 2017. Lymphocyte pct 51.9 % [facility] Comment: Interpretive Data Percent cell count reference ranges are not reported, since discordance with absolute values may lead to misinterpretation of CBC data. Current Interpretive Data was last revised on 2017. Monocyte pct 9.6 % [facility] Comment: Interpretive Data Percent cell count reference ranges are not reported, since discordance with absolute values may lead to misinterpretation of CBC data. Current Interpretive Data was last revised on 2017. Eosinophil pct 1.7 % [facility] Comment: Interpretive Data Percent cell count reference ranges are not reported, since discordance with absolute values may lead to misinterpretation of CBC data. Current Interpretive Data was last revised on 2017. Basophil pct 1.9 % [facility] Comment: Interpretive Data Percent cell count reference ranges are not reported, since discordance with absolute values may lead to misinterpretation of CBC data. Current Interpretive Data was last revised on 2017. Blood 11/26/2024 9:38 PM CDT 11/26/2024 10:36 PM CDT Lee Elena MD LAB BLOOD ORDERABLES Krystyna l Result Performing Organization Address [facility] Co de Phone Number [facility] [place] [address] * (ABNORMAL) CBC with auto differential (11/26/2024 9:38 PM CDT) WBC 5.86 3.80 - 9.90 K/cumm Hgb 9.7(L) 11.9 - 15.5 g/dL [facility] Hct 29.7(L) 35.6 - 45.5 % [facility] Plt 398 150 - 400 K/cumm [facility] MPV 9.2 9.1 - 12.3 fL [facility] RBC 2.87(L) 3.90 - 5.20 M/cumm [facility] MCV 103.5(H) 81.3 - 96.4 fL [facility] MCH 33.8(H) 27.1 - 33.3 pg [facility] MCHC 32.7 32.3 - 35.7 g/dL [facility] RDW CV 18.7(H) 11.1 - 14.9 % [facility] RDW SD 71.5(H) 35.7 - 48.1 fL [facility] NRBC abs 0.00 0.00 - 0.01 K/cumm [facility] Blood 11/26/2024 9:38 PM CDT 11/26/2024 10:36 PM CDT Lee Elena MD LAB BLOOD ORDERABLES Krystyna l Result Performing Organization Address [facility]/ZIP Co de Phone Number [facility] [place] [address] * (ABNORMAL) Protime-INR (11/26/2024 9:38 PM CDT) PT 9.5(L) 9.7 - 13.0 sec INR 0.88(L) 0.90 - 1.20 [facility] Comment: Interpretive data Oral anticoagulant therapeutic ranges: Venous thromboembolism prophylaxis or treatment: 2.0-3.0 CARDIOLOGY Standard range: 2.0-3.0 High-intensity range: 2.5-3.5 Refer to indication-specific guidelines for appropriate target ranges for prosthetic heart valve replacement. Current interpretive data was last revised on 2019. Blood 11/26/2024 9:38 PM CDT 11/26/2024 10:43 PM CDT Lee Elena MD LAB BLOOD ORDERABLES Krystyna l Result Performing Organization Address [facility] Co de Phone Number [facility] [place] [address] * (ABNORMAL) Phosphorus (11/26/2024 9:38 PM CDT) Pathologist [facility] Phosphorus, pl 5.7(H) 2.3 - 4.5 mg/dL Blood 11/26/2024 9:38 PM CDT 11/26/2024 10:42 PM CDT Lee Elena MD LAB BLOOD ORDERABLES [place] [address] * Magnesium (11/26/2024 9:38 PM CDT) [facility] Magnesium 2.1 1.4 - 2.5 mg/dL Blood 11/26/2024 9:38 PM CDT 11/26/2024 10:42 PM CDT Lee Elena MD LAB BLOOD ORDERABLES Krystyna l Result Performing Organization Address [facility] Co de Phone Number [facility] [place] [address] * (ABNORMAL) Hepatic function panel (11/26/2024 9:38 PM CDT) Pathologist [facility] Bilirubin, total 0.3 0.1 - 1.2 mg/dL Bilirubin, direct 0.2 0.1 - 0.3 mg/dL [facility] Protein, pl 6.5 6.5 - 8.5 g/dL [facility] Albumin 2.8(L) 3.5 - 5.0 g/dL [facility] Alk phos 132(H) 40 - 130 Units/L [facility] ALT 17 7 - 45 Units/L [facility] AST 38 10 - 45 Units/L [facility] Blood 11/26/2024 9:38 PM CDT 11/26/2024 10:42 PM CDT Lee Elena MD LAB BLOOD ORDERABLES Krystyna l Result Performing Organization Address [facility] de Phone Number [facility] Department [place] [address] * (ABNORMAL) Basic metabolic panel (11/26/2024 9:38 PM CDT) Pathologist [facility] Sodium 141 135 - 145 mmol/L Potassium, pl 4.1 3.3 - 4.9 mmol/L [facility] Chloride 101 97 - 110 mmol/L [facility] CO2 29 22 - 32 mmol/L [facility] Anion gap 11 2 - 15 mmol/L [facility] BUN 15 6 - 25 mg/dL [facility] Creatinine 0.54(L) 0.60 - 1.10 mg/dL [facility] Glucose 89 70 - 199 mg/dL [facility] Comment: Interpretive Data Fasting glucose >/= [...] Calcium 9.1 8.5 - 10.3 mg/dL [facility] Blood 11/26/2024 9:38 PM CDT 11/26/2024 10:42 PM CDT us Lee Elena MD LAB BLOOD ORDERABLES Krystyna meyers Result [facility] Department [place] [address] * TRANSTHORACIC ECHO (TTE) LIMITED/FOLLOW UP W LTD DOPPLER/CF W CONTRAST (11/26/2024 1:54 PM CDT) Estimated EF 55-60 % CONS SCIMAGE Anatomical Region Laterality Modality Ultrasound 11/26/2024 1:05 PM CDT Narrative 11/26/2024 2:37 PM CDT [facility] [place] [address] Transthoracic Echocardiographic Report Patient Name: HAYLEY LEÓN L : 1990 (34y 9m) Gender: F Study Date: 11/26/2024 01:05:04 PM Ht(Inch): 61 Wt(Lb): 98.1 BSA: 1.38 Hydrometer Calibrator: Lise De Anda Location: [id number] Order Provider: ALEX WYNN Heart Rate: 72 BMI: 18.53 BP: 92 / 57 Ref Provider: ALEX WYNN PROCEDURES: Echocardiographic Report: Follow-Up Echocardiography with contrast, [...] Procedure Note Jim Malloy MD - 11/26/2024 [facility] Cardiac [place] [address] Transthoracic Echocardiographic Report Patient Name: HAYLEY LEÓN L : 1990 (34y 9m) Gender: F Study Date: 11/26/2024 01:05:04 PM Ht(Inch): 61 Wt(Lb): 98.1 BSA: 1.38 Hydrometer Calibrator: Lise De Anda Location: [id number] Order Provider:ALEX WYNN Heart Rate: 72 BMI: 18.53 BP: 92 / 57 Ref Provider: ALEX WYNN PROCEDURES: Echocardiographic Report: Follow-Up Echocardiography with contrast,transthoracic, [...] Malloy M.D. 11/26/2024 2:35:57 PM CDT Alex Wynn MD CV ECHO PROCEDURES Final Result * POCT glucose (11/26/2024 7:38 AM CDT) [facility] Signature Glucose, POC 107 70 - 199 mg/dL Blood 11/26/2024 7:38 AM CDT 11/26/2024 7:38 AM CDT Alex Wynn MD LAB POCT ORDERABLES - DEVICE Fi nal Result [facility] Department [place] [address] * eGFR (11/25/2024 9:19 PM CDT) [facility] eGFR >90 >=60 mL/min/1. 73 m2 Comment: [...] LAB BLOOD ORDERABLES Krystyna meyers Result [facility] [address] [facility] Department [place] [address] * Differential, auto (11/25/2024 9:19 PM CDT) [facility] Neutrophil abs 1.90 1.50 - 6.50 K/cumm Imm gran abs 0.02 0.00 - 0.10 K/cumm [facility] Lymphocyte abs 2.86 0.80 - 3.30 K/cumm [facility] Monocyte abs 0.53 0.20 - 0.80 K/cumm [facility] Eosinophil abs 0.11 0.00 - 0.50 K/cumm [facility] Basophil abs 0.09 0.00 - 0.10 K/cumm [facility] Neutrophil pct 34.5 % [facility] Comment: Interpretive Data Percent cell count reference ranges are not reported, since discordance with absolute values may lead to misinterpretation of CBC data. Current Interpretive Data was last revised on 2017. Imm gran pct 0.4 % [facility] Comment: Interpretive Data Percent cell count reference ranges are not reported, since discordance with absolute values may lead to misinterpretation of CBC data. Current Interpretive Data was last revised on 2017. Lymphocyte pct 51.9 % [facility] Comment: Interpretive Data Percent cell count reference ranges are not reported, since discordance with absolute values may lead to misinterpretation of CBC data. Current Interpretive Data was last revised on 2017. Monocyte pct 9.6 % [facility] Comment: Interpretive Data Percent cell count reference ranges are not reported, since discordance with absolute values may lead to misinterpretation of CBC data. Current Interpretive Data was last revised on 2017. Eosinophil pct 2.0 % [facility] Comment: Interpretive Data Percent cell count reference ranges are not reported, since discordance with absolute values may lead to misinterpretation of CBC data. Current Interpretive Data was last revised on 2017. Basophil pct 1.6 % [facility] Comment: Interpretive Data Percent cell count reference ranges are not reported, since discordance with absolute values may lead to misinterpretation of CBC data. Current Interpretive Data was last revised on 2017. Blood 11/25/2024 9:19 PM CDT 11/25/2024 10:49 PM CDT us Lee Elena MD LAB BLOOD ORDERABLES Krystyna meyers Result [facility] [address] [facility] Department [place] [address] * (ABNORMAL) CBC with auto differential (11/25/2024 9:19 PM CDT) WBC 5.51 3.80 - 9.90 K/cumm Hgb 10.2(L) 11.9 - 15.5 g/dL [facility] Hct 31.9(L) 35.6 - 45.5 % [facility] Plt 466(H) 150 - 400 K/cumm [facility] MPV 9.4 9.1 - 12.3 fL [facility] RBC 3.06(L) 3.90 - 5.20 M/cumm [facility] MCV 104.2(H) 81.3 - 96.4 fL [facility] MCH 33.3 27.1 - 33.3 pg [facility] MCHC 32.0(L) 32.3 - 35.7 g/dL [facility] RDW CV 19.1(H) 11.1 - 14.9 % [facility] RDW SD 72.8(H) 35.7 - 48.1 fL [facility] NRBC abs 0.00 0.00 - 0.01 K/cumm [facility] Blood 11/25/2024 9:19 PM CDT 11/25/2024 10:49 PM CDT Lee Elena MD LAB BLOOD ORDERABLES Krystyna l Result Performing Organization Address [facility] de Phone Number [facility] Department [place] [address] * Protime-INR (11/25/2024 9:19 PM CDT) PT 10.0 9.7 - 13.0 sec INR 0.93 0.90 - 1.20 [facility] Comment: Interpretive data Oral anticoagulant therapeutic ranges: Venous thromboembolism prophylaxis or treatment: 2.0-3.0 CARDIOLOGY Standard range: 2.0-3.0 High-intensity range: 2.5-3.5 Refer to indication-specific guidelines for appropriate target ranges for prosthetic heart valve replacement. Current interpretive data was last revised on 2019. Blood 11/25/2024 9:19 PM CDT 11/25/2024 10:46 PM CDT Lee Elena MD LAB BLOOD ORDERABLES Krystyna l Result Performing Organization Address [facility] Co de Phone Number [facility] [place] [address] * (ABNORMAL) Phosphorus (11/25/2024 9:19 PM CDT) [facility] Phosphorus, pl 5.2(H) 2.3 - 4.5 mg/dL Blood 11/25/2024 9:19 PM CDT 11/25/2024 10:47 PM CDT Lee Elena MD LAB BLOOD ORDERABLES [place] [address] * Magnesium (11/25/2024 9:19 PM CDT) [facility] Magnesium 1.6 1.4 - 2.5 mg/dL Blood 11/25/2024 9:19 PM CDT 11/25/2024 10:47 PM CDT Lee Elena MD LAB BLOOD ORDERABLES Krystyna l Result Performing Organization Address [facility] [place] [address] * (ABNORMAL) Hepatic function panel (11/25/2024 9:19 PM CDT) [facility] Bilirubin, total 0.4 0.1 - 1.2 mg/dL Bilirubin, direct 0.2 0.1 - 0.3 mg/dL [facility] Protein, pl 6.8 6.5 - 8.5 g/dL [facility] Albumin 3.0(L) 3.5 - 5.0 g/dL [facility] Alk phos 142(H) 40 - 130 Units/L [facility] ALT 16 7 - 45 Units/L [facility] AST 35 10 - 45 Units/L [facility] Blood 11/25/2024 9:19 PM CDT 11/25/2024 10:47 PM CDT Lee Elena MD LAB BLOOD ORDERABLES Krystyna l Result [facility] Department [place] [address] * (ABNORMAL) Basic metabolic panel (11/25/2024 9:19 PM CDT) [facility] Sodium 143 135 - 145 mmol/L Potassium, pl 4.3 3.3 - 4.9 mmol/L [facility] Chloride 104 97 - 110 mmol/L [facility] CO2 29 22 - 32 mmol/L [facility] Anion gap 10 2 - 15 mmol/L [facility] BUN 16 6 - 25 mg/dL [facility] Creatinine 0.46(L) 0.60 - 1.10 mg/dL [facility] Glucose 99 70 - 199 mg/dL [facility] Comment: Interpretive Data Fasting glucose >/= [...] Calcium 9.5 8.5 - 10.3 mg/dL [facility] Blood 11/25/2024 9:19 PM CDT 11/25/2024 10:47 PM CDT Lee Elena MD LAB BLOOD ORDERABLES Krystyna l Result Performing Organization Address [facility]/ZIP Co de Phone Number [facility] Department [place] [address] * eGFR (11/24/2024 9:18 PM CDT) [facility] eGFR >90 >=60 mL/min/1. 73 m2 Comment: [...] LAB BLOOD ORDERABLES Krystyna meyers Result [facility] Department [place] [address] * Differential, auto (11/24/2024 9:18 PM CDT) [facility] Neutrophil abs 1.96 1.50 - 6.50 K/cumm Imm gran abs 0.04 0.00 - 0.10 K/cumm [facility] Lymphocyte abs 2.69 0.80 - 3.30 K/cumm [facility] Monocyte abs 0.52 0.20 - 0.80 K/cumm [facility] Eosinophil abs 0.09 0.00 - 0.50 K/cumm [facility] Basophil abs 0.08 0.00 - 0.10 K/cumm [facility] Neutrophil pct 36.4 % [facility] Comment: Interpretive Data Percent cell count reference ranges are not reported, since discordance with absolute values may lead to misinterpretation of CBC data. Current Interpretive Data was last revised on 2017. Imm gran pct 0.7 % [facility] Comment: Interpretive Data Percent cell count reference ranges are not reported, since discordance with absolute values may lead to misinterpretation of CBC data. Current Interpretive Data was last revised on 2017. Lymphocyte pct 50.0 % [facility] Comment: Interpretive Data Percent cell count reference ranges are not reported, since discordance with absolute values may lead to misinterpretation of CBC data. Current Interpretive Data was last revised on 2017. Monocyte pct 9.7 % [facility] Comment: Interpretive Data Percent cell count reference ranges are not reported, since discordance with absolute values may lead to misinterpretation of CBC data. Current Interpretive Data was last revised on 2017. Eosinophil pct 1.7 % [facility] Comment: Interpretive Data Percent cell count reference ranges are not reported, since discordance with absolute values may lead to misinterpretation of CBC data. Current Interpretive Data was last revised on 2017. Basophil pct 1.5 % [facility] Comment: Interpretive Data Percent cell count reference ranges are not reported, since discordance with absolute values may lead to misinterpretation of CBC data. Current Interpretive Data was last revised on 2017. Blood 11/24/2024 9:18 PM CDT 11/24/2024 10:00 PM CDT us Lee Elena MD LAB BLOOD ORDERABLES Krystyna meyers Result [facility] Department [place] [address] * (ABNORMAL) CBC with auto differential (11/24/2024 9:18 PM CDT) WBC 5.38 3.80 - 9.90 K/cumm Hgb 9.4(L) 11.9 - 15.5 g/dL [facility] Hct 28.7(L) 35.6 - 45.5 % [facility] Plt 437(H) 150 - 400 K/cumm [facility] MPV 9.0(L) 9.1 - 12.3 fL [facility] RBC 2.80(L) 3.90 - 5.20 M/cumm [facility] MCV 102.5(H) 81.3 - 96.4 fL [facility] MCH 33.6(H) 27.1 - 33.3 pg [facility] MCHC 32.8 32.3 - 35.7 g/dL [facility] RDW CV 19.4(H) 11.1 - 14.9 % [facility] RDW SD 73.4(H) 35.7 - 48.1 fL [facility] NRBC abs 0.00 0.00 - 0.01 K/cumm [facility] Blood 11/24/2024 9:18 PM CDT 11/24/2024 10:00 PM CDT Lee Elena MD LAB BLOOD ORDERABLES Krystyna l Result Performing Organization Address [facility] de Phone Number [facility] [place] [address] * Protime-INR (11/24/2024 9:18 PM CDT) [facility] Signature PT 10.1 9.7 - 13.0 sec INR 0.94 0.90 - 1.20 [facility] Comment: Interpretive data Oral anticoagulant therapeutic ranges: Venous thromboembolism prophylaxis or treatment: 2.0-3.0 CARDIOLOGY Standard range: 2.0-3.0 High-intensity range: 2.5-3.5 Refer to indication-specific guidelines for appropriate target ranges for prosthetic heart valve replacement. Current interpretive data was last revised on 2019. Blood 11/24/2024 9:18 PM CDT 11/24/2024 10:04 PM CDT Lee Elena MD LAB BLOOD ORDERABLES Krystyna l Result Performing Organization Address [facility] Co de Phone Number [facility] [place] [address] * (ABNORMAL) Phosphorus (11/24/2024 9:18 PM CDT) Pathologist [facility] Phosphorus, pl 4.7(H) 2.3 - 4.5 mg/dL Blood 11/24/2024 9:18 PM CDT 11/24/2024 10:00 PM CDT Lee Elena MD LAB BLOOD ORDERABLES Krystyna l Result [facility] [place] [address] * Magnesium (11/24/2024 9:18 PM CDT) [facility] Magnesium 2.0 1.4 - 2.5 mg/dL Blood 11/24/2024 9:18 PM CDT 11/24/2024 10:00 PM CDT Lee Elena MD LAB BLOOD ORDERABLES Krystyna l Result Performing Organization Address [facility] Co de Phone Number [facility] [place] [address] * (ABNORMAL) Hepatic function panel (11/24/2024 9:18 PM CDT) Pathologist [facility] Bilirubin, total 0.3 0.1 - 1.2 mg/dL Bilirubin, direct 0.2 0.1 - 0.3 mg/dL [facility] Protein, pl 6.4(L) 6.5 - 8.5 g/dL [facility] Albumin 2.8(L) 3.5 - 5.0 g/dL [facility] Alk phos 148(H) 40 - 130 Units/L [facility] ALT 14 7 - 45 Units/L [facility] AST 38 10 - 45 Units/L [facility] Blood 11/24/2024 9:18 PM CDT 11/24/2024 10:00 PM CDT Lee Elena MD LAB BLOOD ORDERABLES Krystyna meyers Result [facility] Department [place] [address] * (ABNORMAL) Basic metabolic panel (11/24/2024 9:18 PM CDT) Pathologist [facility] Sodium 142 135 - 145 mmol/L Potassium, pl 4.1 3.3 - 4.9 mmol/L [facility] Chloride 104 97 - 110 mmol/L [facility] CO2 30 22 - 32 mmol/L [facility] Anion gap 8 2 - 15 mmol/L [facility] BUN 16 6 - 25 mg/dL [facility] Creatinine 0.51(L) 0.60 - 1.10 mg/dL [facility] Glucose 101 70 - 199 mg/dL [facility] Comment: Interpretive Data Fasting glucose >/= [...] Calcium 9.0 8.5 - 10.3 mg/dL [facility] Blood 11/24/2024 9:18 PM CDT 11/24/2024 10:00 PM CDT Lee Elena MD LAB BLOOD ORDERABLES Krystyna meyers Result Performing Organization Address [facility]/ZIP Co de Phone Number [facility] Department [place] [address] * POCT glucose (11/24/2024 7:49 PM CDT) Glucose, POC 104 70 - 199 mg/dL Blood 11/24/2024 7:49 PM CDT 11/24/2024 7:49 PM CDT us Alex Wynn MD LAB POCT ORDERABLES - DEVICE Fi nal Result Performing Organization Address [facility] Co de Phone Number [facility] Department [place] [address] * ECG 12 lead (11/24/2024 7:01 AM CDT) Ventricular Rate EKG/Min 77 BPM [facility] Atrial Rate 77 BPM [facility] NM-Interval (MSEC) 134 ms [facility] QRS-Interval (MSEC) 70 ms [facility] QT-Interval (MSEC) 456 ms [facility] QTc 516 ms [facility] P [place] 38 degrees [facility] R [place] 36 degrees [facility] T [place] 137 degrees [facility] Diagnosis Normal sinus rhythm Low voltage QRS T wave abnormality, consider lateral ischemia Prolonged QT Abnormal ECG When compared with ECG of 23-NOV-2024 18:23, (unconfirmed) No significant change was found Confirmed by SHALINI RODRIGUEZ M.D ([id number]) on 11/27/2024 12:19:52 PM [facility] 11/24/2024 7:01 AM CDT 11/27/2024 12:19 PM CDT us Lee Elena MD ECG ORDERABLES Final Res ult Performing Organization Address [facility] Co de Phone Number [facility] * eGFR (11/23/2024 10:10 PM CDT) [...] LAB BLOOD ORDERABLES Krystyna meyers Result [facility] One [facility] [place] [address] * Differential, auto (11/23/2024 10:10 PM CDT) Pathologist [facility] Neutrophil abs 6.22 1.50 - 6.50 K/cumm Imm gran abs 0.05 0.00 - 0.10 K/cumm [facility] Lymphocyte abs 2.05 0.80 - 3.30 K/cumm [facility] Monocyte abs 0.66 0.20 - 0.80 K/cumm [facility] Eosinophil abs 0.10 0.00 - 0.50 K/cumm [facility] Basophil abs 0.08 0.00 - 0.10 K/cumm [facility] Neutrophil pct 67.9 % [facility] Comment: Interpretive Data Percent cell count reference ranges are not reported, since discordance with absolute values may lead to misinterpretation of CBC data. Current Interpretive Data was last revised on 2017. Imm gran pct 0.5 % [facility] Comment: Interpretive Data Percent cell count reference ranges are not reported, since discordance with absolute values may lead to misinterpretation of CBC data. Current Interpretive Data was last revised on 2017. Lymphocyte pct 22.4 % [facility] Comment: Interpretive Data Percent cell count reference ranges are not reported, since discordance with absolute values may lead to misinterpretation of CBC data. Current Interpretive Data was last revised on 2017. Monocyte pct 7.2 % [facility] Comment: Interpretive Data Percent cell count reference ranges are not reported, since discordance with absolute values may lead to misinterpretation of CBC data. Current Interpretive Data was last revised on 2017. Eosinophil pct 1.1 % [facility] Comment: Interpretive Data Percent cell count reference ranges are not reported, since discordance with absolute values may lead to misinterpretation of CBC data. Current Interpretive Data was last revised on 2017. Basophil pct 0.9 % [facility] Comment: Interpretive Data Percent cell count reference ranges are not reported, since discordance with absolute values may lead to misinterpretation of CBC data. Current Interpretive Data was last revised on 2017. Blood 11/23/2024 10:1 0 PM CDT 11/23/2024 11:09 PM CDT Lee Elena MD LAB BLOOD ORDERABLES Krystyna meyers Result [facility] Department [place] [address] * (ABNORMAL) CBC with auto differential (11/23/2024 10:10 PM CDT) WBC 9.16 3.80 - 9.90 K/cumm Hgb 9.8(L) 11.9 - 15.5 g/dL [facility] Hct 29.9(L) 35.6 - 45.5 % [facility] Plt 483(H) 150 - 400 K/cumm [facility] MPV 9.2 9.1 - 12.3 fL [facility] RBC 2.92(L) 3.90 - 5.20 M/cumm [facility] MCV 102.4(H) 81.3 - 96.4 fL [facility] MCH 33.6(H) 27.1 - 33.3 pg [facility] MCHC 32.8 32.3 - 35.7 g/dL [facility] RDW CV 19.3(H) 11.1 - 14.9 % [facility] RDW SD 72.0(H) 35.7 - 48.1 fL [facility] NRBC abs 0.00 0.00 - 0.01 K/cumm [facility] Blood 11/23/2024 10:1 0 PM CDT 11/23/2024 11:09 PM CDT Lee Elena MD LAB BLOOD ORDERABLES Krystyna l Result Performing Organization Address [facility] de Phone Number [facility] [place] [address] * Protime-INR (11/23/2024 10:10 PM CDT) PT 10.5 9.7 - 13.0 sec INR 0.97 0.90 - 1.20 [facility] Comment: Interpretive data Oral anticoagulant therapeutic [...] ORDERABLES Krystyna l Result Performing Organization Address [facility] de Phone Number [facility] [place] [address] * (ABNORMAL) Phosphorus (11/23/2024 10:10 PM CDT) Phosphorus, pl 5.5(H) 2.3 - 4.5 mg/dL Blood 11/23/2024 10:1 0 PM CDT 11/23/2024 11:09 PM CDT Lee Elena MD LAB BLOOD ORDERABLES Krystyna l Result [facility] Department [place] [address] * Magnesium (11/23/2024 10:10 PM CDT) Pathologist [facility] Magnesium 1.5 1.4 - 2.5 mg/dL Blood 11/23/2024 10:1 0 PM CDT 11/23/2024 11:09 PM CDT Lee Elena MD LAB BLOOD ORDERABLES Krystyna l Result Performing Organization Address [facility] de Phone Number [facility] [place] [address] * (ABNORMAL) Hepatic function panel (11/23/2024 10:10 PM CDT) Pathologist [facility] Bilirubin, total 0.4 0.1 - 1.2 mg/dL Bilirubin, direct 0.2 0.1 - 0.3 mg/dL [facility] Protein, pl 6.3(L) 6.5 - 8.5 g/dL [facility] Albumin 2.9(L) 3.5 - 5.0 g/dL [facility] Alk phos 143(H) 40 - 130 Units/L [facility] ALT 14 7 - 45 Units/L [facility] AST 37 10 - 45 Units/L [facility] Blood 11/23/2024 10:1 0 PM CDT 11/23/2024 11:09 PM CDT Lee Elena MD LAB BLOOD ORDERABLES Krystyna l Result Performing Organization Address [facility] Co de Phone Number [facility] [place] [address] * (ABNORMAL) Basic metabolic panel (11/23/2024 10:10 PM CDT) Sodium 140 135 - 145 mmol/L Potassium, pl 3.6 3.3 - 4.9 mmol/L [facility] Chloride 100 97 - 110 mmol/L [facility] CO2 31 22 - 32 mmol/L [facility] Anion gap 9 2 - 15 mmol/L [facility] BUN 15 6 - 25 mg/dL [facility] Creatinine 0.52(L) 0.60 - 1.10 mg/dL [facility] Glucose 90 70 - 199 mg/dL [facility] Comment: Interpretive Data Fasting glucose >/= [...] Calcium 9.5 8.5 - 10.3 mg/dL [facility] Blood 11/23/2024 10:1 0 PM CDT 11/23/2024 11:09 PM CDT us Lee Elena MD LAB BLOOD ORDERABLES Krystyna l Result [facility] Department [place] [address] * POCT glucose (11/23/2024 9:14 PM CDT) Glucose, POC 107 70 - 199 mg/dL Blood 11/23/2024 9:14 PM CDT 11/23/2024 9:14 PM CDT us Alex Wynn MD LAB POCT ORDERABLES - DEVICE Fi [facility]al [facility] [place] [address] * ECG 12 lead (11/23/2024 6:23 PM CDT) Ventricular Rate EKG/Min 84 BPM [facility] Atrial Rate 84 BPM [facility] NM-Interval (MSEC) 118 ms [facility] QRS-Interval (MSEC) 70 ms [facility] QT-Interval (MSEC) 426 ms [facility] QTc 503 ms [facility] P [place] 23 degrees [facility] R [place] 44 degrees [facility] T [place] 136 degrees [facility] Diagnosis Normal sinus rhythm T wave abnormality, consider lateral ischemia Prolonged QT Abnormal ECG When compared with ECG of 20-NOV-2024 13:20, No significant change was found Confirmed by SHALINI RODRIGUEZ M.D ([id number]) on 11/27/2024 12:19:17 PM [facility] 11/23/2024 6:23 PM CDT 11/27/2024 12:19 PM CDT us Lee Elena MD ECG ORDERABLES Final Res ult [facility] * eGFR (11/22/2024 9:37 PM CDT) eGFR [...] LAB BLOOD ORDERABLES Krystyna mira Result [facility] One [facility] Department [place] [address] * (ABNORMAL) Differential, auto (11/22/2024 9:37 PM CDT) Pathologist [facility] Neutrophil abs 3.27 1.50 - 6.50 K/cumm Imm gran abs 0.06 0.00 - 0.10 K/cumm [facility] Lymphocyte abs 2.86 0.80 - 3.30 K/cumm [facility] Monocyte abs 0.70 0.20 - 0.80 K/cumm [facility] Eosinophil abs 0.15 0.00 - 0.50 K/cumm [facility] Basophil abs 0.11(H) 0.00 - 0.10 K/cumm [facility] Neutrophil pct 45.8 % [facility] Comment: Interpretive Data Percent cell count reference ranges are not reported, since discordance with absolute values may lead to misinterpretation of CBC data. Current Interpretive Data was last revised on 2017. Imm gran pct 0.8 % [facility] Comment: Interpretive Data Percent cell count reference ranges are not reported, since discordance with absolute values may lead to misinterpretation of CBC data. Current Interpretive Data was last revised on 2017. Lymphocyte pct 40.0 % [facility] Comment: Interpretive Data Percent cell count reference ranges are not reported, since discordance with absolute values may lead to misinterpretation of CBC data. Current Interpretive Data was last revised on 2017. Monocyte pct 9.8 % [facility] Comment: Interpretive Data Percent cell count reference ranges are not reported, since discordance with absolute values may lead to misinterpretation of CBC data. Current Interpretive Data was last revised on 2017. Eosinophil pct 2.1 % [facility] Comment: Interpretive Data Percent cell count reference ranges are not reported, since discordance with absolute values may lead to misinterpretation of CBC data. Current Interpretive Data was last revised on 2017. Basophil pct 1.5 % [facility] Comment: Interpretive Data Percent cell count reference ranges are not reported, since discordance with absolute values may lead to misinterpretation of CBC data. Current Interpretive Data was last revised on 2017. Blood 11/22/2024 9:37 PM CDT 11/22/2024 10:34 PM CDT us Lee Elena MD LAB BLOOD ORDERABLES Krystyna meyers Result [facility] Department [place] [address] * (ABNORMAL) CBC with auto differential (11/22/2024 9:37 PM CDT) WBC 7.15 3.80 - 9.90 K/cumm Hgb 9.4(L) 11.9 - 15.5 g/dL [facility] Hct 28.9(L) 35.6 - 45.5 % [facility] Plt 542(H) 150 - 400 K/cumm [facility] MPV 9.4 9.1 - 12.3 fL [facility] RBC 2.81(L) 3.90 - 5.20 M/cumm [facility] MCV 102.8(H) 81.3 - 96.4 fL [facility] MCH 33.5(H) 27.1 - 33.3 pg [facility] MCHC 32.5 32.3 - 35.7 g/dL [facility] RDW CV 19.6(H) 11.1 - 14.9 % [facility] RDW SD 73.3(H) 35.7 - 48.1 fL [facility] NRBC abs 0.00 0.00 - 0.01 K/cumm [facility] Blood 11/22/2024 9:37 PM CDT 11/22/2024 10:34 PM CDT Lee Elena MD LAB BLOOD ORDERABLES Krystyna l Result Performing Organization Address [facility] Co de Phone Number [facility] [place] [address] * Protime-INR (11/22/2024 9:37 PM CDT) [facility] PT 10.1 9.7 - 13.0 sec INR 0.94 0.90 - 1.20 [facility] Comment: Interpretive data Oral anticoagulant therapeutic ranges: Venous thromboembolism prophylaxis or treatment: 2.0-3.0 CARDIOLOGY Standard range: 2.0-3.0 High-intensity range: 2.5-3.5 Refer to indication-specific guidelines for appropriate target ranges for prosthetic heart valve replacement. Current interpretive data was last revised on 2019. Blood 11/22/2024 9:37 PM CDT 11/22/2024 10:54 PM CDT Lee Elena MD LAB BLOOD ORDERABLES Krystyna l Result Performing Organization Address [facility] Co de Phone Number [facility] [place] [address] * (ABNORMAL) Phosphorus (11/22/2024 9:37 PM CDT) [facility] Phosphorus, pl 4.9(H) 2.3 - 4.5 mg/dL Blood 11/22/2024 9:37 PM CDT 11/22/2024 10:33 PM CDT Lee Elena MD LAB BLOOD ORDERABLES Krystyna l Result Performing Organization Address [facility] [place] [address] * Magnesium (11/22/2024 9:37 PM CDT) [facility] Magnesium 1.6 1.4 - 2.5 mg/dL Blood 11/22/2024 9:37 PM CDT 11/22/2024 10:33 PM CDT Lee Elena MD LAB BLOOD ORDERABLES Krystyna l Result Performing Organization Address [facility] Co de Phone Number [facility] [place] [address] * (ABNORMAL) Hepatic function panel (11/22/2024 9:37 PM CDT) [facility] Bilirubin, total 0.4 0.1 - 1.2 mg/dL Bilirubin, direct 0.2 0.1 - 0.3 mg/dL [facility] Protein, pl 6.0(L) 6.5 - 8.5 g/dL [facility] Albumin 2.6(L) 3.5 - 5.0 g/dL [facility] Alk phos 163(H) 40 - 130 Units/L [facility] ALT 12 7 - 45 Units/L [facility] AST 41 10 - 45 Units/L [facility] Blood 11/22/2024 9:37 PM CDT 11/22/2024 10:33 PM CDT Lee Elena MD LAB BLOOD ORDERABLES Krystyna l Result Performing Organization Address [facility] de Phone Number [facility] [place] [address] * (ABNORMAL) Basic metabolic panel (11/22/2024 9:37 PM CDT) [facility] Sodium 138 135 - 145 mmol/L Potassium, pl 4.3 3.3 - 4.9 mmol/L [facility] Chloride 97 97 - 110 mmol/L [facility] CO2 32 22 - 32 mmol/L [facility] Anion gap 9 2 - 15 mmol/L [facility] BUN 17 6 - 25 mg/dL [facility] Creatinine 0.52(L) 0.60 - 1.10 mg/dL [facility] Glucose 104 70 - 199 mg/dL [facility] Comment: Interpretive Data Fasting glucose >/= [...] Calcium 8.8 8.5 - 10.3 mg/dL [facility] Blood 11/22/2024 9:37 PM CDT 11/22/2024 10:33 PM CDT Lee Elena MD LAB BLOOD ORDERABLES Krystyna meyers Result [facility] [place] [address] * eGFR (11/21/2024 10:49 PM CDT) eGFR [...] LAB BLOOD ORDERABLES Krystyna meyers Result [facility] [place] [address] * (ABNORMAL) Differential, auto (11/21/2024 10:49 PM CDT) Neutrophil abs 2.76 1.50 - 6.50 K/cumm Imm gran abs 0.05 0.00 - 0.10 K/cumm [facility] Lymphocyte abs 3.11 0.80 - 3.30 K/cumm [facility] Monocyte abs 0.61 0.20 - 0.80 K/cumm [facility] Eosinophil abs 0.17 0.00 - 0.50 K/cumm [facility] Basophil abs 0.14(H) 0.00 - 0.10 K/cumm [facility] Neutrophil pct 40.4 % [facility] Comment: Interpretive Data Percent cell count reference ranges are not reported, since discordance with absolute values may lead to misinterpretation of CBC data. Current Interpretive Data was last revised on 2017. Imm gran pct 0.7 % [facility] Comment: Interpretive Data Percent cell count reference ranges are not reported, since discordance with absolute values may lead to misinterpretation of CBC data. Current Interpretive Data was last revised on 2017. Lymphocyte pct 45.5 % [facility] Comment: Interpretive Data Percent cell count reference ranges are not reported, since discordance with absolute values may lead to misinterpretation of CBC data. Current Interpretive Data was last revised on 2017. Monocyte pct 8.9 % [facility] Comment: Interpretive Data Percent cell count reference ranges are not reported, since discordance with absolute values may lead to misinterpretation of CBC data. Current Interpretive Data was last revised on 2017. Eosinophil pct 2.5 % [facility] Comment: Interpretive Data Percent cell count reference ranges are not reported, since discordance with absolute values may lead to misinterpretation of CBC data. Current Interpretive Data was last revised on 2017. Basophil pct 2.0 % [facility] Comment: Interpretive Data Percent cell count reference ranges are not reported, since discordance with absolute values may lead to misinterpretation of CBC data. Current Interpretive Data was last revised on 2017. Blood 11/21/2024 10:4 9 PM CDT 11/22/2024 12:33 AM CDT us Lee Elena MD LAB BLOOD ORDERABLES Krystyna meyers Result [facility] [place] [address] * (ABNORMAL) CBC with auto differential (11/21/2024 10:49 PM CDT) WBC 6.84 3.80 - 9.90 K/cumm Hgb 10.1(L) 11.9 - 15.5 g/dL [facility] Hct 30.3(L) 35.6 - 45.5 % [facility] Plt 610(H) 150 - 400 K/cumm [facility] MPV 9.3 9.1 - 12.3 fL [facility] RBC 2.98(L) 3.90 - 5.20 M/cumm [facility] MCV 101.7(H) 81.3 - 96.4 fL [facility] MCH 33.9(H) 27.1 - 33.3 pg [facility] MCHC 33.3 32.3 - 35.7 g/dL [facility] RDW CV 19.7(H) 11.1 - 14.9 % [facility] RDW SD 71.9(H) 35.7 - 48.1 fL [facility] NRBC abs 0.00 0.00 - 0.01 K/cumm [facility] Blood 11/21/2024 10:4 9 PM CDT 11/22/2024 12:33 AM CDT Lee Elena MD LAB BLOOD ORDERABLES Krystyna l Result Performing Organization Address [facility] Co de Phone Number [facility] [place] [address] * Protime-INR (11/21/2024 10:49 PM CDT) PT 10.7 9.7 - 13.0 sec INR 0.99 0.90 - 1.20 [facility] Comment: Interpretive data Oral anticoagulant therapeutic [...] ORDERABLES Krystyna l Result Performing Organization Address [facility] Co de Phone Number [facility] [place] [address] * (ABNORMAL) Phosphorus (11/21/2024 10:49 PM CDT) Pathologist [facility] Phosphorus, pl 5.4(H) 2.3 - 4.5 mg/dL Blood 11/21/2024 10:4 9 PM CDT 11/22/2024 12:32 AM CDT Lee Elena MD LAB BLOOD ORDERABLES Krystyna l Result Performing Organization Address [facility] Co de Phone Number [facility] [place] [address] * Magnesium (11/21/2024 10:49 PM CDT) Pathologist [facility] Magnesium 1.8 1.4 - 2.5 mg/dL Blood 11/21/2024 10:4 9 PM CDT 11/22/2024 12:32 AM CDT Lee Elena MD LAB BLOOD ORDERABLES Krystyna l Result Performing Organization Address [facility] de Phone Number [facility] [place] [address] * (ABNORMAL) Hepatic function panel (11/21/2024 10:49 PM CDT) [facility] Bilirubin, total 0.4 0.1 - 1.2 mg/dL Bilirubin, direct 0.3 0.1 - 0.3 mg/dL [facility] Protein, pl 6.2(L) 6.5 - 8.5 g/dL [facility] Albumin 2.4(L) 3.5 - 5.0 g/dL [facility] Alk phos 173(H) 40 - 130 Units/L [facility] ALT 12 7 - 45 Units/L [facility] AST 41 10 - 45 Units/L [facility] Blood 11/21/2024 10:4 9 PM CDT 11/22/2024 12:32 AM CDT Lee Elena MD LAB BLOOD ORDERABLES Krystyna l Result Performing Organization Address [facility] de Phone Number [facility] [place] [address] * (ABNORMAL) Basic metabolic panel (11/21/2024 10:49 PM CDT) [facility] Sodium 141 135 - 145 mmol/L Potassium, pl 3.9 3.3 - 4.9 mmol/L [facility] Chloride 100 97 - 110 mmol/L [facility] CO2 31 22 - 32 mmol/L [facility] Anion gap 10 2 - 15 mmol/L [facility] BUN 16 6 - 25 mg/dL [facility] Creatinine 0.39(L) 0.60 - 1.10 mg/dL [facility] Glucose 96 70 - 199 mg/dL [facility] Comment: Interpretive Data Fasting glucose >/= [...] Calcium 9.1 8.5 - 10.3 mg/dL [facility] Blood 11/21/2024 10:4 9 PM CDT 11/22/2024 12:32 AM CDT Lee Elena MD LAB BLOOD ORDERABLES Krystyna l Result Performing Organization Address City/[facility]/ZIP Co de Phone Number [facility] Department [place] [address] * Potassium, whole blood (11/20/2024 10:45 PM CDT) Pathologist [facility] Potassium, bld 4.0 3.3 - 4.9 mmol/L Blood 11/20/2024 10:4 5 PM CDT 11/20/2024 10:51 PM CDT us Martita Hussein MD LAB BLOOD ORDERABLE S Final Result [facility] [place] [address] * eGFR (11/20/2024 7:07 PM CDT) Pathologist [facility] eGFR >90 >=60 mL/min/1. 73 [...] LAB BLOOD ORDERABLES Krystyna meyers Result [facility] [place] [address] * Differential, auto (11/20/2024 7:07 PM CDT) Neutrophil abs 3.09 1.50 - 6.50 K/cumm Imm gran abs 0.09 0.00 - 0.10 K/cumm [facility] Lymphocyte abs 3.30 0.80 - 3.30 K/cumm [facility] Monocyte abs 0.65 0.20 - 0.80 K/cumm [facility] Eosinophil abs 0.15 0.00 - 0.50 K/cumm [facility] Basophil abs 0.09 0.00 - 0.10 K/cumm [facility] Neutrophil pct 42.0 % [facility] Comment: Interpretive Data Percent cell count reference ranges are not reported, since discordance with absolute values may lead to misinterpretation of CBC data. Current Interpretive Data was last revised on 2017. Imm gran pct 1.2 % [facility] Comment: Interpretive Data Percent cell count reference ranges are not reported, since discordance with absolute values may lead to misinterpretation of CBC data. Current Interpretive Data was last revised on 2017. Lymphocyte pct 44.8 % [facility] Comment: Interpretive Data Percent cell count reference ranges are not reported, since discordance with absolute values may lead to misinterpretation of CBC data. Current Interpretive Data was last revised on 2017. Monocyte pct 8.8 % [facility] Comment: Interpretive Data Percent cell count reference ranges are not reported, since discordance with absolute values may lead to misinterpretation of CBC data. Current Interpretive Data was last revised on 2017. Eosinophil pct 2.0 % [facility] Comment: Interpretive Data Percent cell count reference ranges are not reported, since discordance with absolute values may lead to misinterpretation of CBC data. Current Interpretive Data was last revised on 2017. Basophil pct 1.2 % [facility] Comment: Interpretive Data Percent cell count reference ranges are not reported, since discordance with absolute values may lead to misinterpretation of CBC data. Current Interpretive Data was last revised on 2017. Blood 11/20/2024 7:07 PM CDT 11/20/2024 7:32 PM CDT Lee Elena MD LAB BLOOD ORDERABLES Krystyna meyers Result [facility] [place] [address] * (ABNORMAL) CBC with auto differential (11/20/2024 7:07 PM CDT) WBC 7.37 3.80 - 9.90 K/cumm Hgb 10.1(L) 11.9 - 15.5 g/dL [facility] Hct 31.3(L) 35.6 - 45.5 % [facility] Plt 651(H) 150 - 400 K/cumm [facility] MPV 9.4 9.1 - 12.3 fL [facility] RBC 3.07(L) 3.90 - 5.20 M/cumm [facility] MCV 102.0(H) 81.3 - 96.4 fL [facility] MCH 32.9 27.1 - 33.3 pg [facility] MCHC 32.3 32.3 - 35.7 g/dL [facility] RDW CV 20.5(H) 11.1 - 14.9 % [facility] RDW SD 76.1(H) 35.7 - 48.1 fL [facility] NRBC abs 0.00 0.00 - 0.01 K/cumm [facility] Blood 11/20/2024 7:07 PM CDT 11/20/2024 7:32 PM CDT us Lee Elena MD LAB BLOOD ORDERABLES Krystyna l Result Performing Organization Address [facility] Co de Phone Number [facility] [place] [address] * (ABNORMAL) aPTT (11/20/2024 7:07 PM CDT) aPTT 52(H) 28 - 38 sec Comment: Interpretive Data Heparin therapeutic range: 66.0 - 100.0 seconds. Range based on correlation with therapeutic heparin activity range of 0.3 - 0.7 Units/mL. Current interpretive data was last revised on 2023. Blood 11/20/2024 7:07 PM CDT 11/20/2024 7:38 PM CDT Narrative [facility] - 11/20/2024 7:48 PM CDT Baseline prior to enoxaparin initiation. us Alex Wynn MD LAB BLOOD ORDERABLES Final Resu lt Performing Organization Address City/[facility]/ZIP Co de Phone Number [facility] [place] [address] * Protime-INR (11/20/2024 7:07 PM CDT) PT 11.1 9.7 - 13.0 sec INR 1.03 0.90 - 1.20 [facility] Comment: Interpretive data Oral anticoagulant therapeutic ranges: Venous thromboembolism prophylaxis or treatment: 2.0-3.0 CARDIOLOGY Standard range: 2.0-3.0 High-intensity range: 2.5-3.5 Refer to indication-specific guidelines for appropriate target ranges for prosthetic heart valve replacement. Current interpretive data was last revised on 2019. Blood 11/20/2024 7:07 PM CDT 11/20/2024 7:34 PM CDT Lee Elena MD LAB BLOOD ORDERABLES Krystyna l Result Performing Organization Address City/[facility] Co de Phone Number [facility] [place] [address] * (ABNORMAL) Phosphorus (11/20/2024 7:07 PM CDT) Phosphorus, pl 5.4(H) 2.3 - 4.5 mg/dL Blood 11/20/2024 7:07 PM CDT 11/20/2024 7:32 PM CDT Lee Elena MD LAB BLOOD ORDERABLES Krystyna l Result Performing Organization Address [facility] Co de Phone Number [facility] [place] [address] * Magnesium (11/20/2024 7:07 PM CDT) Magnesium 1.7 1.4 - 2.5 mg/dL Blood 11/20/2024 7:07 PM CDT 11/20/2024 7:32 PM CDT Lee Elena MD LAB BLOOD ORDERABLES Krystyna l Result Performing Organization Address City/[facility] Co de Phone Number [facility] [place] [address] * (ABNORMAL) Hepatic function panel (11/20/2024 7:07 PM CDT) [facility] Bilirubin, total 0.4 0.1 - 1.2 mg/dL Bilirubin, direct 0.2 0.1 - 0.3 mg/dL [facility] Comment:Hemolyzed; result ma y be falsely decreased Protein, pl 6.3(L) 6.5 - 8.5 g/dL [facility] Albumin 2.6(L) 3.5 - 5.0 g/dL [facility] Alk phos 193(H) 40 - 130 Units/L [facility] ALT 12 7 - 45 Units/L [facility] AST 55(H) 10 - 45 Units/L [facility] Comment:Hemolyzed; result ma y be falsely elevated Blood 11/20/2024 7:07 PM CDT 11/20/2024 7:32 PM CDT us Lee Elena MD LAB BLOOD ORDERABLES Krystyna meyers Result [facility] One [facility] Department [place] [address] * Basic metabolic panel (11/20/2024 7:07 PM CDT) [facility] Sodium 142 135 - 145 mmol/L Potassium, pl 4.3 3.3 - 4.9 mmol/L [facility] Comment:Hemolyzed; Potassium value may be falsely elevated by as much as 0.3-0.5 mmol/L. Suggest redraw and reanalysis. Chloride 103 97 - 110 mmol/L [facility] CO2 27 22 - 32 mmol/L [facility] Anion gap 12 2 - 15 mmol/L [facility] BUN 16 6 - 25 mg/dL [facility] Creatinine 0.66 0.60 - 1.10 mg/dL [facility] Glucose 95 70 - 199 mg/dL [facility] Comment: Interpretive Data Fasting glucose >/= [...] Calcium 9.0 8.5 - 10.3 mg/dL [facility] Blood 11/20/2024 7:07 PM CDT 11/20/2024 7:32 PM CDT us Lee Elena MD LAB BLOOD ORDERABLES Krystyna l Result Performing Organization Address City/[facility]/ZIP Co de Phone Number [facility] One [facility] Department [place] [address] * ECG 12 lead (11/20/2024 1:20 PM CDT) Pathologist [facility] Ventricular Rate EKG/Min 78 BPM [facility] Atrial Rate 78 BPM [facility] NM-Interval (MSEC) 126 ms [facility] QRS-Interval (MSEC) 68 ms [facility] QT-Interval (MSEC) 448 ms [facility] QTc 510 ms [facility] P [place] 22 degrees [facility] R [place] 55 degrees [facility] T [place] 124 degrees [facility] Diagnosis Normal sinus rhythm T wave abnormality, consider lateral ischemia Prolonged QT Abnormal ECG When compared with ECG of 18-NOV-2024 13:40, (unconfirmed) Nonspecific T wave abnormality no longer evident in Inferior leads T wave inversion less evident in Lateral leads Confirmed by SHALINI RODRIGUEZ M.D ([id number]) on 11/21/2024 9:46:31 AM [facility] 11/20/2024 1:20 PM CDT 11/21/2024 9:46 AM CDT us Lee Elena MD ECG ORDERABLES Final Res ult [facility] * Genomics Specimen Tracking Order Blood (11/20/2024 10:37 AM CDT) Pathologist [facility] Genomics Tracking Order Received Blood 11/20/2024 10:3 7 AM CDT 11/20/2024 11:49 AM CDT Narrative [facility] - 11/29/2024 1:58 PM CDT Please read the Genomics Epic requisition for specimen collection requirements. Akash Sharma MD LAB BODY FLUIDS AND STOOLS ORDERABLES Final Result [facility] One [facility] [place] [address] * Genomics ([facility]) (11/20/2024 12:00 AM CDT) Blood (Peripheral Blood For Pathologist Review) 11/20/2024 11/20/[address] [facility] DI[facility] - CYTOGENETICS - 12/19/2024 12:31 PM CDT REPORT IMAGES AND/OR SCANNED DOCUMENTS ONLY VIEWABLE IN PDF FORMAT Akash Sharma MD LAB GENETIC TEST ING Edited Result - Final Performing Organization Address City/[facility]/ZIP Co de Phone Number [facility] - CYTOGENETICS [address] [place] [address] * eGFR (11/19/2024 8:20 PM CDT) [facility] eGFR >90 >=60 mL/min/1. 73 m2 Comment: [...] LAB BLOOD ORDERABLES Krystyna meyers Result [facility] One [facility] [place] [address] * Differential, auto (11/19/2024 8:20 PM CDT) Neutrophil abs 3.74 1.50 - 6.50 K/cumm Imm gran abs 0.06 0.00 - 0.10 K/cumm [facility] Lymphocyte abs 2.61 0.80 - 3.30 K/cumm [facility] Monocyte abs 0.72 0.20 - 0.80 K/cumm [facility] Eosinophil abs 0.09 0.00 - 0.50 K/cumm [facility] Basophil abs 0.08 0.00 - 0.10 K/cumm [facility] Neutrophil pct 51.2 % [facility] Comment: Interpretive Data Percent cell count reference ranges are not reported, since discordance with absolute values may lead to misinterpretation of CBC data. Current Interpretive Data was last revised on 2017. Imm gran pct 0.8 % [facility] Comment: Interpretive Data Percent cell count reference ranges are not reported, since discordance with absolute values may lead to misinterpretation of CBC data. Current Interpretive Data was last revised on 2017. Lymphocyte pct 35.8 % [facility] Comment: Interpretive Data Percent cell count reference ranges are not reported, since discordance with absolute values may lead to misinterpretation of CBC data. Current Interpretive Data was last revised on 2017. Monocyte pct 9.9 % [facility] Comment: Interpretive Data Percent cell count reference ranges are not reported, since discordance with absolute values may lead to misinterpretation of CBC data. Current Interpretive Data was last revised on 2017. Eosinophil pct 1.2 % [facility] Comment: Interpretive Data Percent cell count reference ranges are not reported, since discordance with absolute values may lead to misinterpretation of CBC data. Current Interpretive Data was last revised on 2017. Basophil pct 1.1 % [facility] Comment: Interpretive Data Percent cell count reference ranges are not reported, since discordance with absolute values may lead to misinterpretation of CBC data. Current Interpretive Data was last revised on 2017. Blood 11/19/2024 8:20 PM CDT 11/19/2024 9:33 PM CDT us Lee Elena MD LAB BLOOD ORDERABLES Krystyna meyers Result [facility] One [facility] Department [place] [address] * (ABNORMAL) CBC with auto differential (11/19/2024 8:20 PM CDT) WBC 7.30 3.80 - 9.90 K/cumm Hgb 9.1(L) 11.9 - 15.5 g/dL [facility] Hct 27.7(L) 35.6 - 45.5 % [facility] Plt 627(H) 150 - 400 K/cumm [facility] MPV 9.9 9.1 - 12.3 fL [facility] RBC 2.75(L) 3.90 - 5.20 M/cumm [facility] MCV 100.7(H) 81.3 - 96.4 fL [facility] MCH 33.1 27.1 - 33.3 pg [facility] MCHC 32.9 32.3 - 35.7 g/dL [facility] RDW CV 20.7(H) 11.1 - 14.9 % [facility] RDW SD 75.5(H) 35.7 - 48.1 fL [facility] NRBC abs 0.00 0.00 - 0.01 K/cumm [facility] Blood 11/19/2024 8:20 PM CDT 11/19/2024 9:33 PM CDT Lee Elena MD LAB BLOOD ORDERABLES Krystyna l Result Performing Organization Address [facility] Co de Phone Number [facility] [place] [address] * Protime-INR (11/19/2024 8:20 PM CDT) PT 10.6 9.7 - 13.0 sec INR 0.98 0.90 - 1.20 [facility] Comment: Interpretive data Oral anticoagulant therapeutic ranges: Venous thromboembolism prophylaxis or treatment: 2.0-3.0 CARDIOLOGY Standard range: 2.0-3.0 High-intensity range: 2.5-3.5 Refer to indication-specific guidelines for appropriate target ranges for prosthetic heart valve replacement. Current interpretive data was last revised on 2019. Blood 11/19/2024 8:20 PM CDT 11/19/2024 9:36 PM CDT Lee Elena MD LAB BLOOD ORDERABLES Krystyna l Result Performing Organization Address [facility] Co de Phone Number [facility] [place] [address] * Phosphorus (11/19/2024 8:20 PM CDT) Phosphorus, pl 4.2 2.3 - 4.5 mg/dL Blood 11/19/2024 8:20 PM CDT 11/19/2024 9:32 PM CDT Lee Elena MD LAB BLOOD ORDERABLES Krystyna l Result Performing Organization Address City/[facility] Co de Phone Number [facility] [place] [address] * Magnesium (11/19/2024 8:20 PM CDT) [facility] Magnesium 2.0 1.4 - 2.5 mg/dL Blood 11/19/2024 8:20 PM CDT 11/19/2024 9:32 PM CDT Lee Elena MD LAB BLOOD ORDERABLES Krystyna l Result Performing Organization Address [facility] Co de Phone Number [facility] Department [place] [address] * (ABNORMAL) Hepatic function panel (11/19/2024 8:20 PM CDT) [facility] Bilirubin, total 0.4 0.1 - 1.2 mg/dL Bilirubin, direct 0.3 0.1 - 0.3 mg/dL [facility] Protein, pl 5.7(L) 6.5 - 8.5 g/dL [facility] Albumin 2.2(L) 3.5 - 5.0 g/dL [facility] Alk phos 189(H) 40 - 130 Units/L [facility] ALT 12 7 - 45 Units/L [facility] AST 49(H) 10 - 45 Units/L [facility] Blood 11/19/2024 8:20 PM CDT 11/19/2024 9:32 PM CDT Lee Elena MD LAB BLOOD ORDERABLES Krystyna l Result Performing Organization Address [facility] Co de Phone Number [facility] [place] [address] * (ABNORMAL) Basic metabolic panel (11/19/2024 8:20 PM CDT) [facility] Sodium 138 135 - 145 mmol/L Potassium, pl 4.2 3.3 - 4.9 mmol/L [facility] Chloride 103 97 - 110 mmol/L [facility] CO2 28 22 - 32 mmol/L [facility] Anion gap 7 2 - 15 mmol/L [facility] BUN 15 6 - 25 mg/dL [facility] Creatinine 0.40(L) 0.60 - 1.10 mg/dL [facility] Glucose 93 70 - 199 mg/dL [facility] Comment: Interpretive Data Fasting glucose >/= [...] Calcium 8.4(L) 8.5 - 10.3 mg/dL [facility] Blood 11/19/2024 8:20 PM CDT 11/19/2024 9:32 PM CDT us Lee Elena MD LAB BLOOD ORDERABLES Krystyna l Result [facility] Department [place] [address] * POCT glucose (11/19/2024 7:53 AM CDT) Glucose, POC 112 70 - 199 mg/dL Blood 11/19/2024 7:53 AM CDT 11/19/2024 7:53 AM CDT us Alex Wynn MD LAB POCT ORDERABLES - DEVICE Fi nal Result [facility] [place] [address] * (ABNORMAL) Differential, auto (11/18/2024 9:53 PM CDT) Neutrophil abs 5.36 1.50 - 6.50 K/cumm Imm gran abs 0.06 0.00 - 0.10 K/cumm [facility] Lymphocyte abs 2.35 0.80 - 3.30 K/cumm [facility] Monocyte abs 0.81(H) 0.20 - 0.80 K/cumm [facility] Eosinophil abs 0.17 0.00 - 0.50 K/cumm [facility] Basophil abs 0.07 0.00 - 0.10 K/cumm [facility] Neutrophil pct 60.8 % [facility] Comment: Interpretive Data Percent cell count reference ranges are not reported, since discordance with absolute values may lead to misinterpretation of CBC data. Current Interpretive Data was last revised on 2017. Imm gran pct 0.7 % [facility] Comment: Interpretive Data Percent cell count reference ranges are not reported, since discordance with absolute values may lead to misinterpretation of CBC data. Current Interpretive Data was last revised on 2017. Lymphocyte pct 26.6 % [facility] Comment: Interpretive Data Percent cell count reference ranges are not reported, since discordance with absolute values may lead to misinterpretation of CBC data. Current Interpretive Data was last revised on 2017. Monocyte pct 9.2 % [facility] Comment: Interpretive Data Percent cell count reference ranges are not reported, since discordance with absolute values may lead to misinterpretation of CBC data. Current Interpretive Data was last revised on 2017. Eosinophil pct 1.9 % [facility] Comment: Interpretive Data Percent cell count reference ranges are not reported, since discordance with absolute values may lead to misinterpretation of CBC data. Current Interpretive Data was last revised on 2017. Basophil pct 0.8 % [facility] Comment: Interpretive Data Percent cell count reference ranges are not reported, since discordance with absolute values may lead to misinterpretation of CBC data. Current Interpretive Data was last revised on 2017. Blood 11/18/2024 9:53 PM CDT 11/18/2024 11:34 PM CDT Lee Elena MD LAB BLOOD ORDERABLES Krystyna meyers Result [facility] Department [place] [address] * (ABNORMAL) CBC with auto differential (11/18/2024 9:53 PM CDT) WBC 8.82 3.80 - 9.90 K/cumm Hgb 9.2(L) 11.9 - 15.5 g/dL [facility] Hct 27.9(L) 35.6 - 45.5 % [facility] Plt 649(H) 150 - 400 K/cumm [facility] MPV 9.9 9.1 - 12.3 fL [facility] RBC 2.79(L) 3.90 - 5.20 M/cumm [facility] MCV 100.0(H) 81.3 - 96.4 fL [facility] MCH 33.0 27.1 - 33.3 pg [facility] MCHC 33.0 32.3 - 35.7 g/dL [facility] RDW CV 20.7(H) 11.1 - 14.9 % [facility] RDW SD 74.5(H) 35.7 - 48.1 fL [facility] NRBC abs 0.00 0.00 - 0.01 K/cumm [facility] Blood 11/18/2024 9:53 PM CDT 11/18/2024 11:34 PM CDT Lee Elena MD LAB BLOOD ORDERABLES Krystyna l Result [facility] Department [place] [address] * Blood culture Blood (11/18/2024 9:53 PM CDT) Report Final Report: No growth Blood 11/18/2024 9:53 PM CDT 11/19/2024 1:12 AM CDT Narrative [facility] - 11/23/2024 7:00 AM CDT Collection->Peripheral [...] performance characteristics have been verified by the [facility] Microbiology [facility]. For questions about this culture, contact the Microbiology Laboratory at [phone]. Interpretive data was last revised on 24. Lee Elena MD LAB MICROBIOLOGY - GENERA L ORDERABLES Final Result [facility] One [facility] [place] [address] * Protime-INR (11/18/2024 9:53 PM CDT) PT 10.8 9.7 - 13.0 sec INR 1.00 0.90 - 1.20 [facility] Comment: Interpretive data Oral anticoagulant [...] ORDERABLES Krystyna l Result Performing Organization Address [facility] Co de Phone Number [facility] [place] [address] * eGFR (11/18/2024 3:57 PM CDT) eGFR [...] ORDERABLES Krystyna l Result Performing Organization Address [facility] Co de Phone Number [facility] [place] [address] * (ABNORMAL) Phosphorus (11/18/2024 3:57 PM CDT) Phosphorus, pl 4.8(H) 2.3 - 4.5 mg/dL Blood 11/18/2024 3:57 PM CDT 11/18/2024 4:11 PM CDT Lee Elena MD LAB BLOOD ORDERABLES Krystyna l Result Performing Organization Address City/[facility]/ZIP Co de Phone Number [facility] [place] [address] * Magnesium (11/18/2024 3:57 PM CDT) [facility] Magnesium 1.6 1.4 - 2.5 mg/dL Blood 11/18/2024 3:57 PM CDT 11/18/2024 4:11 PM CDT us Lee Elena MD LAB BLOOD ORDERABLES Krystyna l Result Performing Organization Address [facility] de Phone Number [facility] [place] [address] * (ABNORMAL) Hepatic function panel (11/18/2024 3:57 PM CDT) [facility] Bilirubin, total 0.5 0.1 - 1.2 mg/dL Bilirubin, direct 0.4(H) 0.1 - 0.3 mg/dL [facility] Protein, pl 5.8(L) 6.5 - 8.5 g/dL [facility] Albumin 2.5(L) 3.5 - 5.0 g/dL [facility] Alk phos 207(H) 40 - 130 Units/L [facility] ALT 10 7 - 45 Units/L [facility] AST 43 10 - 45 Units/L [facility] Blood 11/18/2024 3:57 PM CDT 11/18/2024 4:11 PM CDT Lee Elena MD LAB BLOOD ORDERABLES Krystyna l Result Performing Organization Address [facility] Co de Phone Number [facility] [place] [address] * (ABNORMAL) Basic metabolic panel (11/18/2024 3:57 PM CDT) [facility] Sodium 140 135 - 145 mmol/L Potassium, pl 4.2 3.3 - 4.9 mmol/L [facility] Chloride 102 97 - 110 mmol/L [facility] CO2 29 22 - 32 mmol/L [facility] Anion gap 9 2 - 15 mmol/L [facility] BUN 13 6 - 25 mg/dL [facility] Creatinine 0.44(L) 0.60 - 1.10 mg/dL [facility] Glucose 92 70 - 199 mg/dL [facility] Comment: Interpretive Data Fasting glucose >/= [...] Calcium 8.4(L) 8.5 - 10.3 mg/dL [facility] Blood 11/18/2024 3:57 PM CDT 11/18/2024 4:11 PM CDT us Lee Elena MD LAB BLOOD ORDERABLES Krystyna meyers Result [facility] One [facility] [place] [address] * ECG 12 lead (11/18/2024 1:40 PM CDT) Pathologist [facility] Ventricular Rate EKG/Min 86 BPM [facility] Atrial Rate 86 BPM [facility] NM-Interval (MSEC) 104 ms [facility] QRS-Interval (MSEC) 74 ms [facility] QT-Interval (MSEC) 422 ms [facility] QTc 504 ms [facility] P [place] 28 degrees [facility] R [place] 78 degrees [facility] T [place] 159 degrees [facility] Diagnosis Sinus rhythm with short NM T wave abnormality, consider lateral ischemia Prolonged QT Abnormal ECG When compared with ECG of 16-NOV-2024 07:09, Nonspecific T wave abnormality no longer evident in Anterior leads Inverted T waves have replaced nonspecific T wave abnormality in Lateral leads Confirmed by SHALINI RODRIGUEZ M.D ([id number]) on 11/20/2024 4:17:45 PM [facility] 11/18/2024 1:40 PM CDT 11/20/2024 4:17 PM CDT us Lee Elena MD ECG ORDERABLES Final Res ult [facility] * POCT glucose (11/18/2024 12:02 AM CDT) Glucose, POC 104 70 - 199 mg/dL Blood 11/18/2024 12:0 2 AM CDT 11/18/2024 12:02 AM CDT Lee Elena MD LAB POCT ORDERABLES - DEV ICE Final Result Performing Organization Address [facility] Co de Phone Number [facility] Department [place] [address] * eGFR (11/17/2024 10:42 PM CDT) eGFR [...] LAB BLOOD ORDERABLES Krystyna l Result [facility] One [facility] [place] [address] * Differential, auto (11/17/2024 10:42 PM CDT) Neutrophil abs 4.62 1.50 - 6.50 K/cumm Imm gran abs 0.08 0.00 - 0.10 K/cumm [facility] Lymphocyte abs 2.27 0.80 - 3.30 K/cumm [facility] Monocyte abs 0.73 0.20 - 0.80 K/cumm [facility] Eosinophil abs 0.13 0.00 - 0.50 K/cumm [facility] Basophil abs 0.08 0.00 - 0.10 K/cumm [facility] Neutrophil pct 58.5 % [facility] Comment: Interpretive Data Percent cell count reference ranges are not reported, since discordance with absolute values may lead to misinterpretation of CBC data. Current Interpretive Data was last revised on 2017. Imm gran pct 1.0 % [facility] Comment: Interpretive Data Percent cell count reference ranges are not reported, since discordance with absolute values may lead to misinterpretation of CBC data. Current Interpretive Data was last revised on 2017. Lymphocyte pct 28.7 % [facility] Comment: Interpretive Data Percent cell count reference ranges are not reported, since discordance with absolute values may lead to misinterpretation of CBC data. Current Interpretive Data was last revised on 2017. Monocyte pct 9.2 % [facility] Comment: Interpretive Data Percent cell count reference ranges are not reported, since discordance with absolute values may lead to misinterpretation of CBC data. Current Interpretive Data was last revised on 2017. Eosinophil pct 1.6 % [facility] Comment: Interpretive Data Percent cell count reference ranges are not reported, since discordance with absolute values may lead to misinterpretation of CBC data. Current Interpretive Data was last revised on 2017. Basophil pct 1.0 % [facility] Comment: Interpretive Data Percent cell count reference ranges are not reported, since discordance with absolute values may lead to misinterpretation of CBC data. Current Interpretive Data was last revised on 2017. Blood 11/17/2024 10:4 2 PM CDT 11/17/2024 11:26 PM CDT us Lee Elena MD LAB BLOOD ORDERABLES Krystyna meyers Result [facility] One [facility] [place] [address] * (ABNORMAL) CBC with auto differential (11/17/2024 10:42 PM CDT) WBC 7.91 3.80 - 9.90 K/cumm Hgb 9.2(L) 11.9 - 15.5 g/dL [facility] Hct 27.9(L) 35.6 - 45.5 % [facility] Plt 666(H) 150 - 400 K/cumm [facility] MPV 10.0 9.1 - 12.3 fL [facility] RBC 2.81(L) 3.90 - 5.20 M/cumm [facility] MCV 99.3(H) 81.3 - 96.4 fL [facility] MCH 32.7 27.1 - 33.3 pg [facility] MCHC 33.0 32.3 - 35.7 g/dL [facility] RDW CV 21.2(H) 11.1 - 14.9 % [facility] RDW SD 75.9(H) 35.7 - 48.1 fL [facility] NRBC abs 0.00 0.00 - 0.01 K/cumm [facility] Blood 11/17/2024 10:4 2 PM CDT 11/17/2024 11:26 PM CDT Lee Elena MD LAB BLOOD ORDERABLES Krystyna l Result [facility] Sydni [facility] Department [place] [address] * Blood culture Blood (11/17/2024 10:42 PM CDT) Report Final Report: No growth Blood 11/17/2024 10:4 2 PM CDT 11/17/2024 11:21 PM CDT Narrative [facility] - 11/22/2024 7:00 AM CDT [...] performance characteristics have been verified by the [facility] Microbiology Laboratory. For questions about this culture, contact the Microbiology Laboratory at [phone]. Interpretive data was last revised on 24. us Lee Elena MD LAB MICROBIOLOGY - GENERA L ORDERABLES Final Result Performing Organization Address City/[facility]/ZIP Co de Phone Number SHONA BACK Sydni [facility] Department [place] [address] * Protime-INR (11/17/2024 10:42 PM CDT) PT 12.0 9.7 - 13.0 sec INR 1.11 0.90 - 1.20 [facility] Comment: Interpretive data Oral anticoagulant therapeutic ranges: Venous thromboembolism prophylaxis or treatment: 2.0-3.0 CARDIOLOGY Standard range: 2.0-3.0 High-intensity range: 2.5-3.5 Refer to indication-specific guidelines for appropriate target ranges for prosthetic heart valve replacement. Current interpretive data was last revised on 2019. Blood 11/17/2024 10:4 2 PM CDT 11/17/2024 11:22 PM CDT eLe Elena MD LAB BLOOD ORDERABLES Krystyna l Result Performing Organization Address [facility] Co de Phone Number [facility] Department [place] [address] * Phosphorus (11/17/2024 10:42 PM CDT) Pathologist [facility] Phosphorus, pl 3.7 2.3 - 4.5 mg/dL Blood 11/17/2024 10:4 2 PM CDT 11/17/2024 11:26 PM CDT Lee Elena MD LAB BLOOD ORDERABLES Rkystyna l Result Performing Organization Address [facility] Co de Phone Number [facility] Department [place] [address] * Magnesium (11/17/2024 10:42 PM CDT) Pathologist [facility] Magnesium 1.8 1.4 - 2.5 mg/dL Blood 11/17/2024 10:4 2 PM CDT 11/17/2024 11:26 PM CDT Lee Elena MD LAB BLOOD ORDERABLES Krystyna l Result Performing Organization Address [facility] Co de Phone Number [facility] [place] [address] * (ABNORMAL) Hepatic function panel (11/17/2024 10:42 PM CDT) [facility] Bilirubin, total 0.5 0.1 - 1.2 mg/dL Bilirubin, direct 0.4(H) 0.1 - 0.3 mg/dL [facility] Protein, pl 5.4(L) 6.5 - 8.5 g/dL [facility] Albumin 2.2(L) 3.5 - 5.0 g/dL [facility] Alk phos 186(H) 40 - 130 Units/L [facility] ALT 11 7 - 45 Units/L [facility] AST 44 10 - 45 Units/L [facility] Blood 11/17/2024 10:4 2 PM CDT 11/17/2024 11:26 PM CDT Lee Elena MD LAB BLOOD ORDERABLES Krystyna l Result [facility] Department [place] [address] * (ABNORMAL) Basic metabolic panel (11/17/2024 10:42 PM CDT) [facility] Sodium 139 135 - 145 mmol/L Potassium, pl 4.2 3.3 - 4.9 mmol/L [facility] Chloride 106 97 - 110 mmol/L [facility] CO2 28 22 - 32 mmol/L [facility] Anion gap 5 2 - 15 mmol/L [facility] BUN 10 6 - 25 mg/dL [facility] Creatinine 0.43(L) 0.60 - 1.10 mg/dL [facility] Glucose 99 70 - 199 mg/dL [facility] Comment: Interpretive Data Fasting glucose >/= [...] Calcium 8.4(L) 8.5 - 10.3 mg/dL [facility] Blood 11/17/2024 10:4 2 PM CDT 11/17/2024 11:26 PM CDT Lee Elena MD LAB BLOOD ORDERABLES Krystyna l Result Performing Organization Address City/[facility]/ZIP Co de Phone Number [facility] [place] [address] * POCT glucose (11/17/2024 7:38 PM CDT) Glucose, POC 101 70 - 199 mg/dL Blood 11/17/2024 7:38 PM CDT 11/17/2024 7:38 PM CDT Lee Elena MD LAB POCT ORDERABLES - DEV ICE Final Result Performing Organization Address City/[facility] Co de Phone Number [facility] [place] [address] * POCT glucose (11/17/2024 3:39 PM CDT) Glucose, POC 95 70 - 199 mg/dL Blood 11/17/2024 3:39 PM CDT 11/17/2024 3:39 PM CDT Lee Elena MD LAB POCT ORDERABLES - DEV ICE Final Result [facility] [place] [address] * POCT glucose (11/17/2024 11:25 AM CDT) Glucose, POC 99 70 - 199 mg/dL Blood 11/17/2024 11:2 5 AM CDT 11/17/2024 11:25 AM CDT Lee Elena MD LAB POCT ORDERABLES - DEV ICE Final Result Performing Organization Address City/[facility] de Phone Number [facility] [place] [address] * POCT glucose (11/17/2024 7:43 AM CDT) Glucose, POC 108 70 - 199 mg/dL Blood 11/17/2024 7:43 AM CDT 11/17/2024 7:43 AM CDT Lee Elena MD LAB POCT ORDERABLES - DEV ICE Final Result Performing Organization Address [facility] de Phone Number [facility] [place] [address] * POCT glucose (11/17/2024 5:04 AM CDT) Glucose, POC 110 70 - 199 mg/dL Blood 11/17/2024 5:04 AM CDT 11/17/2024 5:04 AM CDT Lee Elena MD LAB POCT ORDERABLES - DEV ICE Final Result Performing Organization Address City/[facility] [place] [address] * POCT glucose (11/17/2024 12:06 AM CDT) Glucose, POC 102 70 - 199 mg/dL Blood 11/17/2024 12:0 6 AM CDT 11/17/2024 12:06 AM CDT Lee Elena MD LAB POCT ORDERABLES - DEV ICE Final Result Performing Organization Address [facility] Co de Phone Number [facility] Department [place] [address] * eGFR (11/16/2024 9:38 PM CDT) eGFR >90 >=60 mL/min/1. [...] ORDERABLES Krystyna l Result Performing Organization Address City/[facility]/ZIP Co de Phone Number [facility] [place] [address] * (ABNORMAL) Differential, auto (11/16/2024 9:38 PM CDT) Pathologist [facility] Neutrophil abs 9.72(H) 1.50 - 6.50 K/cumm Imm gran abs 0.14(H) 0.00 - 0.10 K/cumm [facility] Lymphocyte abs 1.26 0.80 - 3.30 K/cumm [facility] Monocyte abs 0.53 0.20 - 0.80 K/cumm [facility] Eosinophil abs 0.06 0.00 - 0.50 K/cumm [facility] Basophil abs 0.08 0.00 - 0.10 K/cumm [facility] Neutrophil pct 82.4 % [facility] Comment: Interpretive Data Percent cell count reference ranges are not reported, since discordance with absolute values may lead to misinterpretation of CBC data. Current Interpretive Data was last revised on 2017. Imm gran pct 1.2 % [facility] Comment: Interpretive Data Percent cell count reference ranges are not reported, since discordance with absolute values may lead to misinterpretation of CBC data. Current Interpretive Data was last revised on 2017. Lymphocyte pct 10.7 % [facility] Comment: Interpretive Data Percent cell count reference ranges are not reported, since discordance with absolute values may lead to misinterpretation of CBC data. Current Interpretive Data was last revised on 2017. Monocyte pct 4.5 % [facility] Comment: Interpretive Data Percent cell count reference ranges are not reported, since discordance with absolute values may lead to misinterpretation of CBC data. Current Interpretive Data was last revised on 2017. Eosinophil pct 0.5 % [facility] Comment: Interpretive Data Percent cell count reference ranges are not reported, since discordance with absolute values may lead to misinterpretation of CBC data. Current Interpretive Data was last revised on 2017. Basophil pct 0.7 % [facility] Comment: Interpretive Data Percent cell count reference ranges are not reported, since discordance with absolute values may lead to misinterpretation of CBC data. Current Interpretive Data was last revised on 2017. Blood 11/16/2024 9:38 PM CDT 11/16/2024 10:38 PM CDT us Lee Elena MD LAB BLOOD ORDERABLES Krystyna meyers Result [facility] One [facility] Department [place] [address] * (ABNORMAL) CBC with auto differential (11/16/2024 9:38 PM CDT) WBC 11.79(H) 3.80 - 9.90 K/cumm Hgb 10.1(L) 11.9 - 15.5 g/dL [facility] Hct 30.2(L) 35.6 - 45.5 % [facility] Plt 718(H) 150 - 400 K/cumm [facility] MPV 10.5 9.1 - 12.3 fL [facility] RBC 3.12(L) 3.90 - 5.20 M/cumm [facility] MCV 96.8(H) 81.3 - 96.4 fL [facility] MCH 32.4 27.1 - 33.3 pg [facility] MCHC 33.4 32.3 - 35.7 g/dL [facility] RDW CV 21.5(H) 11.1 - 14.9 % [facility] RDW SD 73.1(H) 35.7 - 48.1 fL [facility] NRBC abs 0.00 0.00 - 0.01 K/cumm [facility] Blood 11/16/2024 9:38 PM CDT 11/16/2024 10:38 PM CDT Lee Elena MD LAB BLOOD ORDERABLES Krystyna l Result [facility] [place] [address] * Blood culture Blood (11/16/2024 9:38 PM CDT) Pathologist [facility] Report Final Report: No growth Blood 11/16/2024 9:38 PM CDT 11/16/2024 10:38 PM CDT Narrative [facility] - 11/21/2024 7:00 AM CDT From [...] performance characteristics have been verified by the [facility] Microbiology Laboratory. For questions about this culture, contact the Microbiology Laboratory at [phone]. Interpretive data was last revised on 24. Lee Elena MD LAB MICROBIOLOGY - GENERA L ORDERABLES Final Result Performing Organization Address [facility] Co de Phone Number [facility] Department [place] [address] * Protime-INR (11/16/2024 9:38 PM CDT) PT 12.6 9.7 - 13.0 sec INR 1.16 0.90 - 1.20 [facility] Comment: Interpretive data Oral anticoagulant therapeutic ranges: Venous thromboembolism prophylaxis or treatment: 2.0-3.0 CARDIOLOGY Standard range: 2.0-3.0 High-intensity range: 2.5-3.5 Refer to indication-specific guidelines for appropriate target ranges for prosthetic heart valve replacement. Current interpretive data was last revised on 2019. Blood 11/16/2024 9:3 8 PM CDT 11/16/2024 10:38 PM CDT Lee Elena MD LAB BLOOD ORDERABLES Krystyna l Result Performing Organization Address City/[facility]/ZIP Co de Phone Number [facility] [place] [address] * Phosphorus (11/16/2024 9:38 PM CDT) [facility] Phosphorus, pl 4.1 2.3 - 4.5 mg/dL Blood 11/16/2024 9:38 PM CDT 11/16/2024 10:37 PM CDT Lee Elena MD LAB BLOOD ORDERABLES Krystyna l Result Performing Organization Address City/[facility]/ZIP Co de Phone Number [facility] [place] [address] * Magnesium (11/16/2024 9:38 PM CDT) [facility] Magnesium 1.5 1.4 - 2.5 mg/dL Blood 11/16/2024 9:38 PM CDT 11/16/2024 10:37 PM CDT Lee Elena MD LAB BLOOD ORDERABLES Krystyna l Result Performing Organization Address City/[facility] Co de Phone Number [facility] [place] [address] * (ABNORMAL) Hepatic function panel (11/16/2024 9:38 PM CDT) [facility] Bilirubin, total 0.6 0.1 - 1.2 mg/dL Bilirubin, direct 0.4(H) 0.1 - 0.3 mg/dL [facility] Protein, pl 5.7(L) 6.5 - 8.5 g/dL [facility] Albumin 2.0(L) 3.5 - 5.0 g/dL [facility] Alk phos 201(H) 40 - 130 Units/L [facility] ALT 21 7 - 45 Units/L [facility] AST 68(H) 10 - 45 Units/L [facility] Blood 11/16/2024 9:38 PM CDT 11/16/2024 10:37 PM CDT Lee Elena MD LAB BLOOD ORDERABLES Krystyna l Result Performing Organization Address City/[facility]/ZIP Co de Phone Number [facility] Department [place] [address] * (ABNORMAL) Basic metabolic panel (11/16/2024 9:38 PM CDT) [facility] Sodium 141 135 - 145 mmol/L Potassium, pl 4.2 3.3 - 4.9 mmol/L [facility] Chloride 103 97 - 110 mmol/L [facility] CO2 29 22 - 32 mmol/L [facility] Anion gap 9 2 - 15 mmol/L [facility] BUN 9 6 - 25 mg/dL [facility] Creatinine 0.48(L) 0.60 - 1.10 mg/dL [facility] Glucose 90 70 - 199 mg/dL [facility] Comment: Interpretive Data Fasting glucose >/= [...] Calcium 8.8 8.5 - 10.3 mg/dL [facility] Blood 11/16/2024 9:38 PM CDT 11/16/2024 10:37 PM CDT Lee Elena MD LAB BLOOD ORDERABLES Krystyna l Result Performing Organization Address [facility] Co de Phone Number [facility] One [facility] [place] [address] * Blood culture Blood (11/16/2024 9:28 PM CDT) Report Final Report: No growth Blood 11/16/2024 9:28 PM CDT 11/16/2024 10:38 PM CDT Narrative [facility] - 11/21/2024 7:00 AM CDT Collection->Peripheral 1. [...] performance characteristics have been verified by the [facility] Microbiology Laboratory. For questions about this culture, contact the Microbiology Laboratory at [phone]. Interpretive data was last revised on 24. Lee Elena MD LAB MICROBIOLOGY - GENERA L ORDERABLES Final Result [facility] [place] [address] * POCT glucose (11/16/2024 8:10 PM CDT) Glucose, POC 124 70 - 199 mg/dL Blood 11/16/2024 8:10 PM CDT 11/16/2024 8:10 PM CDT Lee Elena MD LAB POCT ORDERABLES - DEV ICE Final Result [facility] Sydni [facility] [place] [address] * POCT glucose (11/16/2024 6:32 PM CDT) Glucose, POC 104 70 - 199 mg/dL Blood 11/16/2024 6:32 PM CDT 11/16/2024 6:32 PM CDT us Lee Elena MD LAB POCT ORDERABLES - DEV ICE Final Result Performing Organization Address [facility] Co de Phone Number [facility] BACK Sydni [facility] [place] [address] * Radiology Event (11/16/2024 5:53 PM CDT) [...] department on the 5th floor of the [facility] tower. It was reported that when the patient [...] physical exam and patient education. Procedure Note Deandra Ochoa Smith, DO - 11/16/2024 EXAMINATION: General Radiology Event Report DATE of EVENT:11/16/2024 11:11 PM I was asked to see HAYLEY LEÓN regarding a fall. Event: This was a witnessed Fall It was reported to me that the patient fell during a transfer from one wheelchair to another wheelchair while in the radiology department on the 5th floor of the [facility]. It was reported that when [...] mapping at the mid: normal less than 6775-4730 ms. T2 mapping at the mid: normal [...] mapping at the mid: normal less than 8072-5189 ms. T2 mapping at the mid: normal [...] by: Thang Castro M.D. Lee Elena MD IM MRI PROCEDURES Final Result * (ABNORMAL) Hemoglobin and hematocrit (11/16/2024 11:59 AM CDT) Hgb 10.2(L) 11.9 - 15.5 g/dL Comment:Hemoglobin delta due to apparent blood transfusion. Hct 30.3(L) 35.6 - 45.5 % [facility] Blood 11/16/2024 11:5 9 AM CDT 11/16/2024 12:47 PM CDT us Oracio Cody MD LAB BLOOD ORDERABLES Final Result [facility] [place] [address] * eGFR (11/16/2024 11:58 AM CDT) eGFR [...] MD LAB BLOOD ORDERABLES [place] [address] * Calcium, ionized (11/16/2024 11:58 AM CDT) Calcium, Ionized 4.68 4.50 - 5.10 mg/dL Blood 11/16/2024 11:5 8 AM CDT 11/16/2024 12:39 PM CDT Lee Elena MD LAB BLOOD ORDERABLES Krystyna l Result Performing Organization Address City/[facility] [place] [address] * Phosphorus (11/16/2024 11:58 AM CDT) Pathologist [facility] Phosphorus, pl 4.3 2.3 - 4.5 mg/dL Blood 11/16/2024 11:5 8 AM CDT 11/16/2024 12:47 PM CDT Lee Elena MD LAB BLOOD ORDERABLES Krystyna l Result Performing Organization Address City/[facility] [place] [address] * Magnesium (11/16/2024 11:58 AM CDT) [facility] Magnesium 1.6 1.4 - 2.5 mg/dL Blood 11/16/2024 11:5 8 AM CDT 11/16/2024 12:47 PM CDT Lee Elena MD LAB BLOOD ORDERABLES Krystyna l Result [facility] [place] [address] * (ABNORMAL) Basic metabolic panel (11/16/2024 11:58 AM CDT) Sodium 140 135 - 145 mmol/L Potassium, pl 4.2 3.3 - 4.9 mmol/L [facility] Chloride 104 97 - 110 mmol/L [facility] CO2 30 22 - 32 mmol/L [facility] Anion gap 6 2 - 15 mmol/L [facility] BUN 9 6 - 25 mg/dL [facility] Creatinine 0.44(L) 0.60 - 1.10 mg/dL [facility] Glucose 101 70 - 199 mg/dL [facility] Comment: Interpretive Data Fasting glucose >/= [...] Calcium 8.6 8.5 - 10.3 mg/dL [facility] Blood 11/16/2024 11:5 8 AM CDT 11/16/2024 12:47 PM CDT Lee Elena MD LAB BLOOD ORDERABLES Krystyna l Result [facility] [place] [address] * (ABNORMAL) POCT glucose (11/16/2024 11:43 AM CDT) Glucose, POC 250(H) 70 - 199 mg/dL Comment:Glu2: RN/ Notified Glucose comment 1 Glu2: RN/ Notified [facility] Blood 11/16/2024 11:4 3 AM CDT 11/16/2024 11:43 AM CDT us Lee Elena MD LAB POCT ORDERABLES - DEV ICE Final Result Performing Organization Address [facility] Co de Phone Number [facility] [place] [address] * POCT glucose (11/16/2024 7:55 AM CDT) Glucose, POC 98 70 - 199 mg/dL Blood 11/16/2024 7:55 AM CDT 11/16/2024 7:55 AM CDT Lee Elena MD LAB POCT ORDERABLES - DEV ICE Final Result Performing Organization Address [facility] de Phone Number [facility] [place] [address] * ECG 12 lead (11/16/2024 7:09 AM CDT) [facility] Signature Ventricular Rate EKG/Min 84 BPM [facility] Atrial Rate 84 BPM [facility] NM-Interval (MSEC) 126 ms [facility] QRS-Interval (MSEC) 66 ms [facility] QT-Interval (MSEC) 410 ms [facility] QTc 484 ms [facility] P [place] 19 degrees [facility] R [place] 41 degrees [facility] T [place] 92 degrees [facility] Diagnosis Normal sinus rhythm Nonspecific T wave abnormality Prolonged QT Abnormal ECG Confirmed by Gustabo Mcdaniels MD ([id number]) on 11/16/2024 8:39:02 AM [facility] 11/16/2024 7:09 AM CDT 11/16/2024 8:39 AM CDT us Lee Elena MD ECG ORDERABLES Final Res ult Performing Organization Address [facility] Co de Phone Number [facility] * Transfuse RBC (11/16/2024 6:22 AM CDT) Blood Lee Elena MD BLOOD TRANSFUSION ORDERAB LES Final Result Performing Organization Address [facility]/ZIP Co de Phone Number [facility] [place] [address] * POCT glucose (11/16/2024 4:21 AM CDT) Glucose, POC 119 70 - 199 mg/dL Blood 11/16/2024 4:21 AM CDT 11/16/2024 4:21 AM CDT Lee Elena MD LAB POCT ORDERABLES - DEV ICE Final Result Performing Organization Address [facility] Co de Phone Number [facility] [place] [address] * Type and screen (11/16/2024 1:45 AM CDT) Zach, indirect Negative ABO Rh A Positive [facility] Blood 11/16/2024 1:45 AM CDT 11/16/2024 2:04 AM CDT Narrative [facility] - 11/16/2024 2:58 AM CDT Has the patient had Daratumumab or Isatuximab in the past 6 months?->Unknown Lee Elena MD LAB BLOOD BANK TEST ORDER ALINE Final Result Performing Organization Address [facility] Co de Phone Number [facility] Department [place] [address] * POCT glucose (11/16/2024 12:24 AM CDT) Glucose, POC 107 70 - 199 mg/dL Blood 11/16/2024 12:2 4 AM CDT 11/16/2024 12:24 AM CDT Lee Elena MD LAB POCT ORDERABLES - DEV ICE Final Result Performing Organization Address [facility] Co de Phone Number [facility] Department [place] [address] * Prepare RBC: 1 Units (11/15/2024 10:35 PM CDT) Pathologist [facility] Product code [id number] Unit Number [id number] [facility] Product Blood Type APOS [facility] Dispense Status PRESUMED TRANSFUSED [facility] Blood 11/15/2024 10:3 5 PM CDT 11/15/2024 10:34 PM CDT Narrative [facility] - 11/16/2024 4:01 PM CDT Are special requirements needed? (All products are leukoreduced and CMV- safe)- >No Date required:-[id number] LRRBC # of [id number] Reasons:-Hgb <7 g/dL} us Lee Elena MD BLOOD BANK PRODUCT ORDERA BLES Final Result [facility] [place] [address] * eGFR (11/15/2024 8:16 PM CDT) [facility] eGFR >90 >=60 mL/min/1. 73 m2 Comment: [...] LAB BLOOD ORDERABLES Krystyna mira Result [facility] [place] [address] * (ABNORMAL) Differential, auto (11/15/2024 8:16 PM CDT) Pathologist [facility] Neutrophil abs 2.95 1.50 - 6.50 K/cumm Imm gran abs 0.11(H) 0.00 - 0.10 K/cumm [facility] Lymphocyte abs 2.04 0.80 - 3.30 K/cumm [facility] Monocyte abs 0.49 0.20 - 0.80 K/cumm [facility] Eosinophil abs 0.10 0.00 - 0.50 K/cumm [facility] Basophil abs 0.02 0.00 - 0.10 K/cumm [facility] Neutrophil pct 51.6 % [facility] Comment: Interpretive Data Percent cell count reference ranges are not reported, since discordance with absolute values may lead to misinterpretation of CBC data. Current Interpretive Data was last revised on 2017. Imm gran pct 1.9 % [facility] Comment: Interpretive Data Percent cell count reference ranges are not reported, since discordance with absolute values may lead to misinterpretation of CBC data. Current Interpretive Data was last revised on 2017. Lymphocyte pct 35.7 % [facility] Comment: Interpretive Data Percent cell count reference ranges are not reported, since discordance with absolute values may lead to misinterpretation of CBC data. Current Interpretive Data was last revised on 2017. Monocyte pct 8.6 % [facility] Comment: Interpretive Data Percent cell count reference ranges are not reported, since discordance with absolute values may lead to misinterpretation of CBC data. Current Interpretive Data was last revised on 2017. Eosinophil pct 1.8 % [facility] Comment: Interpretive Data Percent cell count reference ranges are not reported, since discordance with absolute values may lead to misinterpretation of CBC data. Current Interpretive Data was last revised on 2017. Basophil pct 0.4 % [facility] Comment: Interpretive Data Percent cell count reference ranges are not reported, since discordance with absolute values may lead to misinterpretation of CBC data. Current Interpretive Data was last revised on 2017. Blood 11/15/2024 8:16 PM CDT 11/15/2024 9:37 PM CDT us Lee Elena MD LAB BLOOD ORDERABLES Krystyna meyers Result [facility] One [facility] Department [place] [address] * (ABNORMAL) CBC with auto differential (11/15/2024 8:16 PM CDT) WBC 5.71 3.80 - 9.90 K/cumm Hgb 6.9(L) 11.9 - 15.5 g/dL [facility] Hct 20.7(L) 35.6 - 45.5 % [facility] Plt 592(H) 150 - 400 K/cumm [facility] MPV 11.0 9.1 - 12.3 fL [facility] RBC 2.05(L) 3.90 - 5.20 M/cumm [facility] MCV 101.0(H) 81.3 - 96.4 fL [facility] MCH 33.7(H) 27.1 - 33.3 pg [facility] MCHC 33.3 32.3 - 35.7 g/dL [facility] RDW CV 21.6(H) 11.1 - 14.9 % [facility] RDW SD 77.4(H) 35.7 - 48.1 fL [facility] NRBC abs 0.00 0.00 - 0.01 K/cumm [facility] Blood 11/15/2024 8:16 PM CDT 11/15/2024 9:37 PM CDT us Lee Elena MD LAB BLOOD ORDERABLES Krystyna l Result [facility] Department [place] [address] * Blood culture Blood (11/15/2024 8:16 PM CDT) Report Final Report: No growth Blood 11/15/2024 8:16 PM CDT 11/15/2024 9:44 PM CDT Narrative [facility] - 11/20/2024 7:00 AM CDT [...] performance characteristics have been verified by the [facility] Microbiology Laboratory. For questions about this culture, contact the Microbiology Laboratory at [phone]. Interpretive data was last revised on 24. us Lee Elena MD LAB MICROBIOLOGY - GENERA L ORDERABLES Final Result [facility] Sydni [facility] Department [place] [address] * Protime-INR (11/15/2024 8:16 PM CDT) PT 10.7 9.7 - 13.0 sec INR 0.99 0.90 - 1.20 [facility] Comment: Interpretive data Oral anticoagulant therapeutic ranges: Venous thromboembolism prophylaxis or treatment: 2.0-3.0 CARDIOLOGY Standard range: 2.0-3.0 High-intensity range: 2.5-3.5 Refer to indication-specific guidelines for appropriate target ranges for prosthetic heart valve replacement. Current interpretive data was last revised on 2019. Blood 11/15/2024 8:16 PM CDT 11/15/2024 9:39 PM CDT Lee Elena MD LAB BLOOD ORDERABLES Krystyna l Result Performing Organization Address City/[facility] Co de Phone Number [facility] [place] [address] * Phosphorus (11/15/2024 8:16 PM CDT) [facility] Phosphorus, pl 4.0 2.3 - 4.5 mg/dL Blood 11/15/2024 8:16 PM CDT 11/15/2024 9:36 PM CDT Lee Elena MD LAB BLOOD ORDERABLES Krystyna l Result Performing Organization Address City/[facility] Co de Phone Number [facility] [place] [address] * Magnesium (11/15/2024 8:16 PM CDT) [facility] Magnesium 1.6 1.4 - 2.5 mg/dL Blood 11/15/2024 8:16 PM CDT 11/15/2024 9:36 PM CDT Lee Elena MD LAB BLOOD ORDERABLES Krystyna l Result [facility] [place] [address] * (ABNORMAL) Hepatic function panel (11/15/2024 8:16 PM CDT) [facility] Bilirubin, total 0.5 0.1 - 1.2 mg/dL Bilirubin, direct 0.4(H) 0.1 - 0.3 mg/dL [facility] Protein, pl 4.8(L) 6.5 - 8.5 g/dL [facility] Albumin 2.1(L) 3.5 - 5.0 g/dL [facility] Alk phos 171(H) 40 - 130 Units/L [facility] ALT 11 7 - 45 Units/L [facility] AST 39 10 - 45 Units/L [facility] Blood 11/15/2024 8:16 PM CDT 11/15/2024 9:36 PM CDT Lee Elena MD LAB BLOOD ORDERABLES Krystyna meyers Result [facility] One [facility] Department [place] [address] * (ABNORMAL) Basic metabolic panel (11/15/2024 8:16 PM CDT) [facility] Sodium 141 135 - 145 mmol/L Potassium, pl 4.0 3.3 - 4.9 mmol/L [facility] Chloride 105 97 - 110 mmol/L [facility] CO2 29 22 - 32 mmol/L [facility] Anion gap 7 2 - 15 mmol/L [facility] BUN 7 6 - 25 mg/dL [facility] Creatinine 0.46(L) 0.60 - 1.10 mg/dL [facility] Glucose 95 70 - 199 mg/dL [facility] Comment: Interpretive Data Fasting glucose >/= [...] Calcium 7.7(L) 8.5 - 10.3 mg/dL [facility] Blood 11/15/2024 8:16 PM CDT 11/15/2024 9:36 PM CDT Lee Elena MD LAB BLOOD ORDERABLES Krystyna l Result [facility] [place] [address] * POCT glucose (11/15/2024 7:40 PM CDT) Glucose, POC 117 70 - 199 mg/dL Blood 11/15/2024 7:40 PM CDT 11/15/2024 7:40 PM CDT Lee Elena MD LAB POCT ORDERABLES - DEV ICE Final Result Performing Organization Address City/[facility]/ZIP Co de Phone Number [facility] [place] [address] * POCT glucose (11/15/2024 5:11 PM CDT) Glucose, POC 100 70 - 199 mg/dL Blood 11/15/2024 5:11 PM CDT 11/15/2024 5:11 PM CDT Lee Elena MD LAB POCT ORDERABLES - DEV ICE Final Result Performing Organization Address City/[facility]/ZIP Co de Phone Number [facility] [place] [address] * POCT glucose (11/15/2024 11:19 AM CDT) Glucose, POC 127 70 - 199 mg/dL Blood 11/15/2024 11:1 9 AM CDT 11/15/2024 11:19 AM CDT Lee Elena MD LAB POCT ORDERABLES - DEV ICE Final Result Performing Organization Address [facility] de Phone Number [facility] [place] [address] * POCT glucose (11/15/2024 8:44 AM CDT) Glucose, POC 106 70 - 199 mg/dL Blood 11/15/2024 8:44 AM CDT 11/15/2024 8:44 AM CDT Lee Elena MD LAB POCT ORDERABLES - DEV ICE Final Result Performing Organization Address [facility] de Phone Number [facility] [place] [address] * POCT glucose (11/15/2024 4:01 AM CDT) Glucose, POC 102 70 - 199 mg/dL Blood 11/15/2024 4:01 AM CDT 11/15/2024 4:01 AM CDT Lee Elena MD LAB POCT ORDERABLES - DEV ICE Final Result Performing Organization Address [facility] [place] [address] * POCT glucose (11/15/2024 12:15 AM CDT) Glucose, POC 110 70 - 199 mg/dL Blood 11/15/2024 12:1 5 AM CDT 11/15/2024 12:15 AM CDT Lee Elena MD LAB POCT ORDERABLES - DEV ICE Final Result Performing Organization Address [facility]/ZIP Co de Phone Number [facility] One [facility] Department [place] [address] * ECG 12 lead (11/14/2024 10:27 PM CDT) Pathologist [facility] Ventricular Rate EKG/Min 103 BPM [facility] Atrial Rate 103 BPM [facility] NM-Interval (MSEC) 124 ms [facility] QRS-Interval (MSEC) 70 ms [facility] QT-Interval (MSEC) 380 ms [facility] QTc 497 ms [facility] P [place] 23 degrees [facility] R [place] 21 degrees [facility] T [place] 113 degrees [facility] Diagnosis Sinus tachycardia Nonspecific T wave abnormality Abnormal ECG Confirmed by Arslan LANG [facility] ([id number]) on 11/15/2024 4:29:22 PM [facility] 11/14/2024 10:2 7 PM CDT 11/15/2024 4:29 PM CDT Lee Elena MD ECG ORDERABLES Final Res ult Performing Organization Address [facility] de Phone Number [facility] * N. gonorrhoeae/C. trachomatis Amplification Urine (11/14/2024 10:01 PM CDT) [facility] C. trachomatis Not Detected Not Detected [facility] N. gonorrhoeae Not Detected Not Detected [facility] Comment: Interpretive Data This assay detects Chlamydia trachomatis and Neisseria gonorrhoeae by nucleic acid amplification testing (NAAT). This assay has been cleared by the [place] Food and Drug administration. The performance characteristics of this test have been verified by the [facility] Molecular Infectious Disease laboratory. The performance characteristics of this test have not been evaluated in individuals less than 14 years of age. Current Interpretive Data last revised 2023. Urine (None) 11/14/2024 10:0 1 PM CDT 11/15/2024 3:36 AM CDT Lee Elena MD LAB MICROBIOLOGY - GENERA L ORDERABLES Final Result Performing Organization Address [facility] Co de Phone Number [facility] Department [place] [address] [facility] * eGFR (11/14/2024 9:16 PM CDT) Pathologist [facility] Department eGFR >90 >=60 mL/min/1. 73 [...] ORDERABLES Krystyna l Result Performing Organization Address City/[facility]/ZIP Co de Phone Number [facility] Department [place] [address] * (ABNORMAL) Differential, auto (11/14/2024 9:16 PM CDT) Pathologist [facility] Neutrophil abs 4.79 1.50 - 6.50 K/cumm Imm gran abs 0.18(H) 0.00 - 0.10 K/cumm [facility] Lymphocyte abs 2.09 0.80 - 3.30 K/cumm [facility] Monocyte abs 0.68 0.20 - 0.80 K/cumm [facility] Eosinophil abs 0.10 0.00 - 0.50 K/cumm [facility] Basophil abs 0.05 0.00 - 0.10 K/cumm [facility] Neutrophil pct 60.7 % [facility] Comment: Interpretive Data Percent cell count reference ranges are not reported, since discordance with absolute values may lead to misinterpretation of CBC data. Current Interpretive Data was last revised on 2017. Imm gran pct 2.3 % [facility] Comment: Interpretive Data Percent cell count reference ranges are not reported, since discordance with absolute values may lead to misinterpretation of CBC data. Current Interpretive Data was last revised on 2017. Lymphocyte pct 26.5 % [facility] Comment: Interpretive Data Percent cell count reference ranges are not reported, since discordance with absolute values may lead to misinterpretation of CBC data. Current Interpretive Data was last revised on 2017. Monocyte pct 8.6 % [facility] Comment: Interpretive Data Percent cell count reference ranges are not reported, since discordance with absolute values may lead to misinterpretation of CBC data. Current Interpretive Data was last revised on 2017. Eosinophil pct 1.3 % [facility] Comment: Interpretive Data Percent cell count reference ranges are not reported, since discordance with absolute values may lead to misinterpretation of CBC data. Current Interpretive Data was last revised on 2017. Basophil pct 0.6 % [facility] Comment: Interpretive Data Percent cell count reference ranges are not reported, since discordance with absolute values may lead to misinterpretation of CBC data. Current Interpretive Data was last revised on 2017. Blood 11/14/2024 9:16 PM CDT 11/14/2024 10:29 PM CDT us Lee Elena MD LAB BLOOD ORDERABLES Krystyna meyers Result [facility] One [facility] Department [place] [address] * (ABNORMAL) CBC with auto differential (11/14/2024 9:16 PM CDT) WBC 7.89 3.80 - 9.90 K/cumm Hgb 7.4(L) 11.9 - 15.5 g/dL [facility] Hct 22.1(L) 35.6 - 45.5 % [facility] Plt 501(H) 150 - 400 K/cumm [facility] MPV 11.5 9.1 - 12.3 fL [facility] RBC 2.25(L) 3.90 - 5.20 M/cumm [facility] MCV 98.2(H) 81.3 - 96.4 fL [facility] MCH 32.9 27.1 - 33.3 pg [facility] MCHC 33.5 32.3 - 35.7 g/dL [facility] RDW CV 21.2(H) 11.1 - 14.9 % [facility] RDW SD 74.3(H) 35.7 - 48.1 fL [facility] NRBC abs 0.00 0.00 - 0.01 K/cumm [facility] Blood 11/14/2024 9:16 PM CDT 11/14/2024 10:29 PM CDT Lee Elena MD LAB BLOOD ORDERABLES Krystyna meyers Result [facility] One [facility] Department [place] [address] * Blood culture Blood (11/14/2024 9:16 PM CDT) Pathologist [facility] Report Final Report: No growth Blood 11/14/2024 9:16 PM CDT 11/14/2024 10:47 PM CDT Narrative [facility] - 11/19/2024 7:00 AM CDT From [...] performance characteristics have been verified by the [facility] Microbiology Laboratory. For questions about this culture, contact the Microbiology Laboratory at [phone]. Interpretive data was last revised on 24. us Lee Elena MD LAB MICROBIOLOGY - GENERA L ORDERABLES Final Result [facility] One [facility] [place] [address] * (ABNORMAL) Blood culture Blood (11/14/2024 9:16 PM CDT) Direct Specimen Exam Stain: Gram Positive Cocci in clusters Time to culture positivity (anaerobic media): 58.1 hours Notification of: Gram Positive Cocci in clusters called to and read back by: Ash Valencia M.D. [phone] on 11/17/2024 10:04:19 by: Nani Bueno [facility] Report Final Report: Staphylococcus aureus For susceptibility results, refer to accession number [id number] on the blood culture from 11/14/2024 (.) [facility] Organism STAPHYLOCOCCUS AUREUS [facility] Blood 11/14/2024 9:16 PM CDT 11/14/2024 10:47 PM CDT Narrative [facility] - 11/20/2024 8:57 AM CDT [...] performance characteristics have been verified by the [facility] Microbiology Laboratory. For questions about this culture, contact the Microbiology Laboratory at [phone]. Interpretive data was last revised on 24. Lee Elena MD LAB MICROBIOLOGY - GENERA L ORDERABLES Final Result Performing Organization Address City/[facility] de Phone Number [facility] Department [place] [address] * Protime-INR (11/14/2024 9:16 PM CDT) Pathologist [facility] PT 12.1 9.7 - 13.0 sec INR 1.12 0.90 - 1.20 [facility] Comment: Interpretive data Oral anticoagulant therapeutic ranges: Venous thromboembolism prophylaxis or treatment: 2.0-3.0 CARDIOLOGY Standard range: 2.0-3.0 High-intensity range: 2.5-3.5 Refer to indication-specific guidelines for appropriate target ranges for prosthetic heart valve replacement. Current interpretive data was last revised on 2019. Blood 11/14/2024 9:16 PM CDT 11/14/2024 10:35 PM CDT Lee Elena MD LAB BLOOD ORDERABLES Krystyna l Result Performing Organization Address [facility] Co de Phone Number [facility] [place] [address] * Uric acid (11/14/2024 9:16 PM CDT) [facility] Uric acid 3.4 2.5 - 7.0 mg/dL Blood 11/14/2024 9:16 PM CDT 11/14/2024 10:34 PM CDT Lee Elena MD LAB BLOOD ORDERABLES [place] [address] * (ABNORMAL) Phosphorus (11/14/2024 9:16 PM CDT) [facility] Phosphorus, pl 5.1(H) 2.3 - 4.5 mg/dL Blood 11/14/2024 9:16 PM CDT 11/14/2024 10:29 PM CDT Lee Elena MD LAB BLOOD ORDERABLES Krystyna l Result Performing Organization Address City/[facility]/[place] [address] * Magnesium (11/14/2024 9:16 PM CDT) [facility] Magnesium 1.9 1.4 - 2.5 mg/dL Blood 11/14/2024 9:16 PM CDT 11/14/2024 10:29 PM CDT Lee Elena MD LAB BLOOD ORDERABLES Krystyna l Result Performing Organization Address City/[facility]/ZIP Co de Phone Number [facility] [place] [address] * Folate (11/14/2024 9:16 PM CDT) [facility] Folic acid 16.4 >=5.0 ng/mL Blood 11/14/2024 9:16 PM CDT 11/14/2024 10:29 PM CDT Lee Elena MD LAB BLOOD ORDERABLES Krystyna l Result Performing Organization Address City/[facility]/ZIP Co de Phone Number [facility] Department [place] [address] * (ABNORMAL) Vitamin B12 (11/14/2024 9:16 PM CDT) [facility] Vitamin B12 1,820(H) 230 - 1,250 pg/mL Blood 11/14/2024 9:16 PM CDT 11/14/2024 10:29 PM CDT Lee Elena MD LAB BLOOD ORDERABLES Krystyna l Result Performing Organization Address [facility] Co de Phone Number [facility] [place] [address] * (ABNORMAL) Hepatic function panel (11/14/2024 9:16 PM CDT) [facility] Bilirubin, total 0.6 0.1 - 1.2 mg/dL Bilirubin, direct 0.5(H) 0.1 - 0.3 mg/dL [facility] Protein, pl 4.7(L) 6.5 - 8.5 g/dL [facility] Albumin 2.0(L) 3.5 - 5.0 g/dL [facility] Alk phos 166(H) 40 - 130 Units/L [facility] ALT 10 7 - 45 Units/L [facility] AST 41 10 - 45 Units/L [facility] Blood 11/14/2024 9:16 PM CDT 11/14/2024 10:29 PM CDT Lee Elena MD LAB BLOOD ORDERABLES Krystyna l Result [facility] Department [place] [address] * (ABNORMAL) Basic metabolic panel (11/14/2024 9:16 PM CDT) Sodium 139 135 - 145 mmol/L Potassium, pl 3.7 3.3 - 4.9 mmol/L [facility] Chloride 100 97 - 110 mmol/L [facility] CO2 27 22 - 32 mmol/L [facility] Anion gap 12 2 - 15 mmol/L [facility] BUN 5(L) 6 - 25 mg/dL [facility] Creatinine 0.48(L) 0.60 - 1.10 mg/dL [facility] Glucose 84 70 - 199 mg/dL [facility] Comment: Interpretive Data Fasting glucose >/= [...] Calcium 7.7(L) 8.5 - 10.3 mg/dL [facility] Blood 11/14/2024 9:16 PM CDT 11/14/2024 10:29 PM CDT us Lee Elena MD LAB BLOOD ORDERABLES Krystyna l Result [facility] One [facility] Department [place] [address] * POCT glucose (11/14/2024 7:37 PM CDT) Glucose, POC 119 70 - 199 mg/dL Blood 11/14/2024 7:37 PM CDT 11/14/2024 7:37 PM CDT Lee Elena MD LAB POCT ORDERABLES - DEV ICE Final Result Performing Organization Address City/[facility] Co de Phone Number [facility] [place] [address] * POCT glucose (11/14/2024 4:07 PM CDT) Glucose, POC 89 70 - 199 mg/dL Blood 11/14/2024 4:07 PM CDT 11/14/2024 4:07 PM CDT Lee Elena MD LAB POCT ORDERABLES - DEV ICE Final Result Performing Organization Address [facility] de Phone Number [facility] [place] [address] * TRANSESOPHAGEAL ECHO (MAXIMINO) W DOPPLER/CF WO CONTRAST (11/14/2024 2:19 PM CDT) Pathologist [facility] LV EF 45 % CONS SCIMAGE Anatomical Region Laterality Modality Echocardiography 11/14/2024 1:49 PM CDT Narrative 11/15/2024 2:05 PM CDT [facility] [place] [address] Transesophageal Echocardiographic Report Patient Name: HAYLEY LEÓN L : 1990 (34y 9m) Gender: F Study Date: 11/14/2024 01:49:02 PM Ht(Inch): Wt(Lb): BSA: Hydrometer Calibrator: Location: [id number] Order Provider: JULISSA MCGOWAN BMI: Ref Provider: [...] Procedure Note Aubrey Horvath MD - 11/15/2024 [facility] Cardiac [place] [address] Transesophageal Echocardiographic Report Patient Name: HAYLEY LEÓN L : 1990 (34y 9m) Gender: F Study Date: 11/14/2024 01:49:02 PM Ht(Inch): Wt(Lb): BSA: Hydrometer Calibrator: Location: [place] [id number] Order Provider: JULISSA MCGOWAN BMI: Ref Provider: [...] Aubrey Horvath M.D. 11/15/2024 2:04:41 PM CDT Result [facility] Julissa Mcgowan MD CV ECHO PROCEDURES Fin al Result * NM AN ELECTIVE ENDOTRACHEAL AIRWAY, NM AN PROCEDURE PLACEHOLDER (11/14/2024 1:56 PM CDT) [...] with: silk tape Number of attempts: 1 Result [facility] Rudy Licona MD ANESTHESIA ORDERABLE S Final Result * POCT glucose (11/14/2024 12:33 PM CDT) Glucose, POC 86 70 - 199 mg/dL Blood 11/14/2024 12:3 3 PM CDT 11/14/2024 12:33 PM CDT Lee Elena MD LAB POCT ORDERABLES - DEV ICE Final Result Performing Organization Address [facility] Co de Phone Number [facility] [place] [address] * POCT glucose (11/14/2024 10:49 AM CDT) Glucose, POC 88 70 - 199 mg/dL Blood 11/14/2024 10:4 9 AM CDT 11/14/2024 10:49 AM CDT Lee Elena MD LAB POCT ORDERABLES - DEV ICE Final Result Performing Organization Address [facility] de Phone Number [facility] [place] [address] * POCT glucose (11/14/2024 7:36 AM CDT) Glucose, POC 94 70 - 199 mg/dL Blood 11/14/2024 7:36 AM CDT 11/14/2024 7:36 AM CDT Lee Elena MD LAB POCT ORDERABLES - DEV ICE Final Result Performing Organization Address [facility] de Phone Number [facility] [place] [address] * POCT glucose (11/14/2024 4:28 AM CDT) Glucose, POC 85 70 - 199 mg/dL Blood 11/14/2024 4:28 AM CDT 11/14/2024 4:28 AM CDT Lee Elena MD LAB POCT ORDERABLES - DEV ICE Final Result Performing Organization Address [facility]/ZIP Co de Phone Number [facility] Sydni [facility] [place] [address] * (ABNORMAL) Blood culture Blood (11/14/2024 12:27 AM CDT) Direct Specimen Exam Stain: Gram Positive Cocci in clusters Time to culture positivity (anaerobic media): 36.1 hours Report Final Report: Staphylococcus aureus For susceptibility results, refer to accession number [id number] on the blood culture from 11/14/2024 (.) [facility] Organism STAPHYLOCOCCUS AUREUS [facility] Blood 11/14/2024 12:2 7 AM CDT 11/14/2024 1:42 AM CDT Narrative [facility] - 11/19/2024 7:49 AM CDT From [...] performance characteristics have been verified by the [facility] Microbiology Laboratory. For questions about this culture, contact the Microbiology Laboratory at [phone]. Interpretive data was last revised on 24. Lee Elena MD LAB MICROBIOLOGY - GENERA L ORDERABLES Final Result Performing Organization Address [facility] Co de Phone Number [facility] One [facility] [place] [address] * (ABNORMAL) Blood culture Blood (11/14/2024 12:16 [...] possibility of a mixed bacterial infection. [facility] Report Final Report: Staphylococcus aureus Methicillin susceptible (MSSA) by penicillin binding protein 2a (PBP2a) testing. (.) [facility] Organism STAPHYLOCOCCUS AUREUS [facility] Blood 11/14/2024 12:1 6 AM CDT 11/14/2024 1:42 AM CDT Narrative [facility] - 11/17/2024 1:38 PM CDT Collection->Peripheral [...] performance characteristics have been verified by the [facility] Microbiology Laboratory. For questions about this culture, contact the Microbiology Laboratory at [phone]. Interpretive data was last revised on 24. [...] L ORDERABLES Final Result Performing Organization Address City/[facility] Co de Phone Number [facility] [place] [address] * Hepatitis panel, acute Blood (11/03/2024 2:31 PM CDT) Hep A IgM Nonreactive Nonreactive Hep B core IgM Nonreactive Nonreactive [facility] Hep C Ab Nonreactive Nonreactive [facility] Comment:Antibodies to HCV no t detected. Does NOT exclude the possibility of recent exposure to HCV. Current interpretive data was last revised on 22 HepBsAg Nonreactive Nonreactive [facility] Blood 11/03/2024 2:31 PM CDT 11/03/2024 2:38 PM CDT us Mar George MD LAB MICROBIOLOGY - GENERAL ORDERABLES Final Result Performing Organization Address [facility] Co de Phone Number [facility] Department [place] [address] * THINPREP TIS PAP REFLEX HPV mRNA E6/E7, CHLAMYDIA/N.GONORRHOEAE (09/14/2016 12:56 PM WELFARE ADMINISTRATOR) CLINICAL INFORMATION [facility] HISTORICAL RESULTS Comment: LMP: [facility] HISTORICAL RESULTS PREV. PAP: [facility] HISTORICAL RESULTS Comment:2011 PREV. BX: [facility] HISTORICAL RESULTS Comment:UNKNOWN SOURCE: [facility] HISTORICAL RESULTS Comment:Cervix, Endocervix STATEMENT OF ADEQUACY: [facility] HISTORICAL RESULTS Comment:Satisfactory for savana luation. Endocervical/transformation zone component present. INTERPRETATION/RES ULT: [facility] HISTORICAL RESULTS Comment:Negative for intraep ithelial lesion or malignancy. COMMENT: [facility] HISTORICAL RESULTS Comment:This Pap test has be en evaluated with computer assisted technology. PAYMENT POSTER: [facility] HISTORICAL RESULTS Comment:YQ, CT(ASCP) CT scre ening location: [place] [address] [place] [address] C. trachomatis RNA NOT DETECTED NOT DETECTED [facility] HISTORICAL RESULTS N. gonorrhoeae RNA NOT DETECTED NOT DETECTED [facility] HISTORICAL RESULTS COMMENT [facility] HISTORICAL RESULTS Comment: This test was performed using the APTIMA COMBO2 Assay ([employer] The analytical performance characteristics of this assay, when used to test SurePath specimens have been determined by [employer]. 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
--- OUTSIDE RECORDS SUMMARY | 2025-02-13 12:10 | XMS_ITS | Referral Summary ---
Author Organization [facility] Address [address] [place] [address] Care Team Providers Care Furnace Process Supervisor Name Role Phone Mo Mitchell MD Primary Care Provider [phone] Encounters Date Type Department Care Team Description 02/12/2025 2:30 PM CDT Home Care Visit [address] [place] [address] Nayely Pedroza, BRITTANIE SN HOME VISIT 02/07/2025 Telephone [facility] Infectious Diseases [address] [place] [address] Rosangela Simental, [facility] 02/07/2025 9:00 AM CDT Home Care Visit [address] [place] [address] Pia Swan, BRITTANIE SN HOME VISIT 02/07/2025 10:00 AM CDT Home Care Visit [address] [place] [address] Isabelle Campbell, OT OT INITIAL EVALUATION 02/06/2025 2:00 PM CDT Home Care Visit [address] [place] [address] Thang Solorzano, PT PT INITIAL EVALUATION 02/05/2025 Home Care Visit [address] [place] [address] Pia Moon, RN TELEPHONE ENCOUNTER 02/01/2025 Telephone [facility] Cardiology [address] [facility] 8th [place] [address] [place] [phone] Nani Melchor, STAN Scheduling Appointments 01/31/2025 Plan of Care Documentation [address] [place] [address] 01/31/2025 2:00 PM CDT Home Care Visit [address] [place] [address] Nayely Pedroza, BRITTANIE SN OASIS RECERTIFICATION 01/29/2025 Home Care Visit [address] [place] [address] Nayely Pedroza, BRITTANIE TELEPHONE ENCOUNTER 01/28/2025 Home Care Visit [address] [place] [address] Nayely Pedroza, BRITTANIE TELEPHONE ENCOUNTER 01/24/2025 9:40 AM CDT Office Visit [facility] Infectious Diseases [address] [facility] [address] [place] [phone] Dorothea Stephen, BRAXTON MSSA bacteremia (Primary Dx) 01/22/2025 12:40 PM CDT - 01/22/2025 11:59 PM CDT Hospital Encounter [facility] [address] [place], [place] [id number] Discharge Disposition: Discharge to home or self care 01/22/2025 12:00 PM CDT Home Care Visit [address] [place] [address] Nayely Pedroza, RN SN HOME VISIT 01/18/2025 Plan of Care Documentation [address] [place] [address] 01/18/2025 10:30 AM CDT Home Care Visit [address] [place] [address] Billy Zarco, BRITTANIE SN OASIS RESUMPTION OF CARE 01/17/2025 Orders Only [facility] Medical Group Cardiology [address] [place] [phone] Oz Noble MD 01/17/2025 Home Care Visit [address] [place] [address] Pia Moon, BRITTANIE SN OASIS TRANSFER W/OUT DC 01/16/2025 Home Care Visit [address] [place] [address] Pia Moon, RN TELEPHONE ENCOUNTER 01/15/2025 10:00 AM CDT Office Visit [facility] Cardiothoracic Surgery [address] [facility] 8th Floor [address] Room [address] [place] [phone] Bo Fried MD Mass of left cardiac ventricle 01/15/2025 8:15 AM CDT - 01/15/2025 11:59 PM CDT Hospital Encounter [facility] Cardiac Diagnostic Lab [address] [facility] 8th [place] [phone] Bo Fried MD MSSA bacteremia; Thrombocytopenia Discharge Disposition: Discharge to home or self care 01/14/2025 Telephone [facility] Home Care Services [address] [place] [address] [address] [place] [phone] Ondina Salas [facility] 01/11/2025 Telephone [facility] Home Care Services [address] [place] [address] [address] [place] [address] Vidhi Martin 01/09/2025 Telephone [facility] Infectious Diseases [address] [place] [address] [address] [place] [address] Sidney Gould Jr., RN 01/08/2025 Telephone [facility] Home Care Services [address] [place] [address] [address] [place] [address] Vidhi Martin 01/01/2025 2:10 PM CDT - 01/01/2025 11:59 PM CDT Hospital Encounter [facility] [address] [place] [address] Discharge Disposition: Discharge to home or self care 01/01/2025 Telephone [facility] Infectious Diseases [address] [facility] [address] [place] [address] Sidney Gould Jr., BRITTANIE 01/01/2025 2:00 PM CDT Home Care Visit [address] [place] [address] Nayely Pedroza, BRITTANIE SN HOME VISIT 12/31/2024 Telephone [facility] Cardiology [facility] [facility] 8th [place] [address] [place] [address] Nani Melchor, BRAXTON 12/31/2024 Orders Only [facility] Infectious Diseases [address] [facility] [address] [place] [address] UnionDorothea Small, [place] 12/28/2024 11:00 AM CDT Home Care Visit [address] [place] [address] Nayely Pedroza, BRITTANIE SN HOME VISIT 12/27/2024 Telephone [facility] Infectious Diseases [address] [facility] [address] [place] [phone] Dorothea Stephen, BRAXTON 12/27/2024 9:13 AM CDT - 12/27/2024 11:59 PM CDT Hospital Encounter [facility] [address] [place] [address] Discharge Disposition: Discharge to home or self care 12/27/2024 2:00 PM CDT Home Care Visit [address] [place] [address] Thang Solorzano, PT PT DISCIPLINE DISCHARGE 12/27/2024 8:40 AM CDT Office Visit [facility] Infectious Diseases [address] [facility] [address] [place] [phone] Dorothea Stephen, SLIDE FASTENER REPAIRER MSSA bacteremia (Primary Dx); Encounter for screening examination for sexually transmitted disease 12/25/2024 Telephone [facility] Primary Care Medicine Clinic [address] [facility] [address] [place] [address] Veronika Ocampo MD 12/21/2024 Orders Only [facility] Cardiology [address] [facility] 8th [place] [address] [place] [address] Nani Melchor NP 12/21/2024 11:30 AM CDT Home Care Visit [address] [place] [address] Nayely Pedroza, BRITTANIE SN HOME VISIT 12/21/2024 2:00 PM CDT Home Care Visit [address] [place] [address] Thang Solorzano, PT PT HOME VISIT 12/19/2024 Home Care Visit [address] [place] [address] Tahng Solorzano, PT CASE COMMUNICATION 12/19/2024 11:00 AM CDT Home Care Visit [address] [place] [address] Thang Solorzano, PT PT HOME VISIT 12/13/2024 10:45 AM CDT Home Care Visit [address] [place] [address] Khushboo Jarvis, PT PT HOME VISIT 12/11/2024 1:00 PM CDT Home Care Visit [address] [place] [address] Nayely Pedroza, BRITTANEI SN HOME VISIT 12/11/2024 2:30 PM CDT Home Care Visit [address] [place] [address] Khushboo Jarvis, PT PT HOME VISIT 12/07/2024 SHOP/CHAP Subsequent Outreach [facility] OP CASE MANAGEMENT [address] [place] [address] Neeta Ott, RN 12/06/2024 11:00 AM CDT Home Care Visit [address] [place] [address] Isabelle Campbell, OT OT INITIAL EVALUATION 12/06/2024 12:30 PM CDT Home Care Visit [address] [place] [address] Nayely Pedroza, RN SN HOME VISIT 12/05/2024 SHOP/CHAP Subsequent Outreach [facility] OP CASE MANAGEMENT [address] [place] [address] Neeta Ott, RN 12/04/2024 SHOP/CHAP Subsequent Outreach [facility] OP CASE MANAGEMENT [address] [place] [address] Neeta Ott, RN 12/04/2024 Home Care Visit [address] [place] [address] Nayely Pedroza, RN CARE CONFERENCE 12/03/2024 Home Care Visit [address] [place] [address] Billy Zarco, RN TELEPHONE ENCOUNTER 12/03/2024 Home Care Visit [address] [place] [address] Thang Solorzano, PT TELEPHONE ENCOUNTER 12/03/2024 10:00 AM CDT Home Care Visit [address] [place] [address] Thang Solorzano, PT PT INITIAL EVALUATION 12/03/2024 1:10 PM CDT Telemedicine [address] [facility] [place] [address] Yamilex Mathew NP Torsades de pointes (HCC) (Primary Dx); MSSA bacteremia 12/01/2024 Plan of Care Documentation [address] [address] [address] [place] [address] 12/01/2024 12:00 PM CDT Home Care Visit [address] [place] [address] Billy Zarco, BRITTANIE SN OASIS START OF CARE 11/30/2024 Orders Only [facility] Cardiothoracic Surgery [address] [facility] 8th Floor [address] Room [address] [place], [place] [phone] Lee Elena MD Mass of left cardiac ventricle (Primary Dx) 11/29/2024 Telephone [facility] Home Care Services [address] [facility] [address] [place] [address] Dora Sandra 11/29/2024 Orders Only Internal Medicine Alex Wynn MD 11/29/2024 SHOP/CHAP Initial Outreach [facility] OP CASE MANAGEMENT [address] [place] [address] Neeta Ott RN 11/29/2024 SHOP/CHAP Initial Eligibility Review [facility] OP CASE MANAGEMENT [address] [place] [address] Neeta Ott RN 11/28/2024 Home Care Visit [address] [address] [place] [address] Hortensia Valentino, BRITTANIE SN TRIAGE ENCOUNTER 11/28/2024 Orders Only [facility] Cardiothoracic Surgery [address] [facility] 8th Floor [address] [place] [phone] Bo Fried MD MSSA bacteremia (Primary Dx); Thrombocytopenia 10/31/2024 2:44 AM CDT - 11/28/2024 3:29 PM CDT Hospital Encounter [address] [address] Rahul Ramirez MD Vazquez Guillamet, MD Arnulfo Beyer, MD Kassy Rae, MD Leo Killian, Alex Bhatia MD Torsades de pointes (HCC) (Primary Dx); Cardiac arrest (HCC); Anorexia; Electrolyte abnormality; Acute pain [R52]; Painful respiration [R07.1]; Costochondritis [M94.0]; Idiopathic peripheral neuropathy [G60.9]; MSSA bacteremia Discharge Disposition: Discharge to home or self care 11/23/2024 Telephone [facility] Home Care Services [address] [facility] [address] [place] [address] Dora Sandra 11/14/2024 1:40 PM CDT Anesthesia Event [facility] [address] [place] [phone] Rudy Licona MD from Last 3 Months Allergies Active Allergy [...] diarrhea 100 mL 11/29/19 25 Active multivit cpxzjgqh-sxpu-PD -calcium (THERA-M) 9 mg iron-400 mcg tabletIndication [...] daily until blood thinner is received from pipeline engineer office Indications: treatment to prevent a heart [...] days 112 capsule 12/28/19 25 025 Discontin ued(Franck matos completed ) Active Problems Problem Noted Date [...] materials from doctor or pharmacy Sometimes 01/18/2025 [facility] Utilities Answer Date Recorded In the past 12 months has th e [employer], [employer], oil, or water [employer] threatened to shut off services in your [...] often do you attend chur ch or congregation services? Never 11/29/2024 Do you belong to any clubs o r organizations such as gnosticist groups, unions, fraternal or athletic groups, or [...] any time in the past 12 [facility], were you homeless or living in a long term (including now)? No 11/29/2024 Personal Safety Answer Date Recorded Have you ever been in or are you currently in a harmful physical or emotional relationship or is someone making you feel afraid or unsafe? Denies 10/31/2024 Comments No Sex and Gender Information Value Date Recorded Sex Assigned at Not on file Legal Sex Female 8:06 PM GRAPHICS INTERN Gender Identity Not on file Sexual [...] 01/24/2025 9:44 AM CDT Plan of Treatment Not on file Procedures Procedure Name Priority Date/Time Associated Diagnosis Comments BLOOD MISC TO TORRES Routine 01/22/2025 12 :40 PM CDT EGFR [...] ORDER Routine 11/21/19 10:37 AM CDT [facility] Routine 11/20/2024 12:00 AM CDT EGFR Routine [...] WO CONTRAST Routine 11/14/2024 2:19 PM CDT NE AN PROCEDURE PLACEHOLDER Routine 11/14/2024 1:56 PM CDT NE AN ELECTIVE ENDOTRACHEAL AIRWAY Routine 11/14/2024 1:56 [...] MRNA E6/E7, CHLAMYDIA/N.GONORRHOEAE Routine 09/14/2016 12:56 PM GRAPHICS INTERN from Last 3 Months or Most Recently Relevant to Health Maintenance Results * BLOOD MISC TO MARVIN (01/22/2025 12:40 PM CDT) Test name, chem CDTA,CARBOHYD RATE DEFICIENT TRANSFERRIN,A DULT SCRE [facility] Comment:Credited, test not i ndicated. Misc see comment SHONA RAMIREZ Comment:Credited, test not i ndicated. Blood 01/22/2025 12:4 0 PM CDT 01/24/2025 2:14 PM CDT us Notinfile Unknown LAB BLOOD ORDERABLES Final Res ult SHONA RAMIREZ [facility] Department of Laboratories [place], [place] [id number] [facility] * eGFR (01/22/2025 12:40 PM CDT) eGFR >90 >=60 mL/min/1. 73 [...] Unknown LAB BLOOD ORDERABLES Final Res ult [facility] [address] [facility] Department [place] [address] * Differential, auto (01/22/2025 12:40 PM CDT) Neutrophil abs 2.80 1.50 - 6.50 K/cumm Imm gran abs 0.00 0.00 - 0.10 K/cumm [facility] Lymphocyte abs 2.66 0.80 - 3.30 K/cumm [facility] Monocyte abs 0.21 0.20 - 0.80 K/cumm [facility] Eosinophil abs 0.14 0.00 - 0.50 K/cumm [facility] Basophil abs 0.05 0.00 - 0.10 K/cumm [facility] Neutrophil pct 47.7 % [facility] Comment: Interpretive Data Percent cell count reference ranges are not reported, since discordance with absolute values may lead to misinterpretation of CBC data. Current Interpretive Data was last revised on 2017. Imm gran pct 0.0 % [facility] Comment: Interpretive Data Percent cell count reference ranges are not reported, since discordance with absolute values may lead to misinterpretation of CBC data. Current Interpretive Data was last revised on 2017. Lymphocyte pct 45.4 % [facility] Comment: Interpretive Data Percent cell count reference ranges are not reported, since discordance with absolute values may lead to misinterpretation of CBC data. Current Interpretive Data was last revised on 2017. Monocyte pct 3.6 % [facility] Comment: Interpretive Data Percent cell count reference ranges are not reported, since discordance with absolute values may lead to misinterpretation of CBC data. Current Interpretive Data was last revised on 2017. Eosinophil pct 2.4 % [facility] Comment: Interpretive Data Percent cell count reference ranges are not reported, since discordance with absolute values may lead to misinterpretation of CBC data. Current Interpretive Data was last revised on 2017. Basophil pct 0.9 % [facility] Comment: Interpretive Data Percent cell count reference ranges are not reported, since discordance with absolute values may lead to misinterpretation of CBC data. Current Interpretive Data was last revised on 2017. Blood 01/22/2025 12:4 0 PM CDT 01/22/2025 3:52 PM CDT us Notinfile Unknown LAB BLOOD ORDERABLES Final Res ult [facility] Department [place] [address] * (ABNORMAL) Iron profile w/ IBC (01/22/2025 12:40 PM CDT) Iron 60 35 - 145 mcg/dL TIBC 322 250 - 400 mcg/dL [facility] Transferrin saturation 19(L) 20 - 50 % [facility] Blood 01/22/2025 12:4 0 PM CDT 01/22/2025 3:52 PM CDT us Notinfile Unknown LAB BLOOD ORDERABLES Final Res ult [facility] Department [place] [address] * (ABNORMAL) CBC with auto differential (01/22/2025 12:40 PM CDT) [facility] WBC 5.86 3.80 - 9.90 K/cumm Hgb 12.9 11.9 - 15.5 g/dL [facility] Hct 39.0 35.6 - 45.5 % [facility] Plt 170 150 - 400 K/cumm [facility] MPV 11.0 9.1 - 12.3 fL [facility] RBC 4.01 3.90 - 5.20 M/cumm [facility] MCV 97.3(H) 81.3 - 96.4 fL [facility] MCH 32.2 27.1 - 33.3 pg [facility] MCHC 33.1 32.3 - 35.7 g/dL [facility] RDW CV 13.4 11.1 - 14.9 % [facility] RDW SD 47.5 35.7 - 48.1 fL [facility] NRBC abs 0.00 0.00 - 0.01 K/cumm [facility] Blood 01/22/2025 12:4 0 PM CDT 01/22/2025 3:52 PM CDT us Notinfile Unknown LAB BLOOD ORDERABLES Final Res ult Performing Organization Address [facility] de Phone Number [facility] [place] [address] * Magnesium (01/22/2025 12:40 PM CDT) [facility] Magnesium 2.0 1.4 - 2.5 mg/dL Blood 01/22/2025 12:4 0 PM CDT 01/22/2025 3:52 PM CDT us Notinfile Unknown LAB BLOOD ORDERABLES Final Res ult Performing Organization Address [facility] Co de Phone Number [facility] [place] [address] * Folate (01/22/2025 12:40 PM CDT) [facility] Folic acid >20.0 >=5.0 ng/mL Blood 01/22/2025 12:4 0 PM CDT 01/22/2025 3:52 PM CDT us Notinfile Unknown LAB BLOOD ORDERABLES Final Res ult Performing Organization Address [facility] Co de Phone Number [facility] Department [place] [address] * Vitamin B12 (01/22/2025 12:40 PM CDT) [facility] Vitamin B12 815 230 - 1,250 pg/mL Blood 01/22/2025 12:4 0 PM CDT 01/22/2025 3:52 PM CDT us Notinfile Unknown LAB BLOOD ORDERABLES Final Res ult Performing Organization Address [facility] de Phone Number [facility] [place] [address] * (ABNORMAL) Comprehensive metabolic panel (01/22/2025 12:40 PM CDT) [facility] Sodium 135 135 - 145 mmol/L Potassium, pl 3.4 3.3 - 4.9 mmol/L [facility] Chloride 98 97 - 110 mmol/L [facility] CO2 23 22 - 32 mmol/L [facility] Anion gap 14 2 - 15 mmol/L [facility] BUN 9 6 - 25 mg/dL [facility] Creatinine 0.63 0.60 - 1.10 mg/dL [facility] Glucose 85 70 - 199 mg/dL [facility] Comment: Interpretive Data Fasting glucose [...] 2022. Calcium 10.1 8.5 - 10.3 mg/dL [facility] Bilirubin, total 0.4 0.1 - 1.2 mg/dL [facility] Protein, pl 7.5 6.5 - 8.5 g/dL [facility] Albumin 4.1 3.5 - 5.0 g/dL [facility] Alk phos 139(H) 40 - 130 Units/L [facility] ALT 33 7 - 45 Units/L [facility] AST 58(H) 10 - 45 Units/L [facility] Blood 01/22/2025 12:4 0 PM CDT 01/22/2025 3:52 PM CDT us Notinfile Unknown LAB BLOOD ORDERABLES Final Res ult [facility] Department [place] [address] * TRANSTHORACIC ECHO (TTE) COMPLETE W DOPPLER/CF W CONTRAST (01/15/2025 9:57 AM CDT) EF Mod BP 55 % CONS SCIMAGE Anatomical Region Laterality Modality Ultrasound 01/15/2025 8:50 AM CDT Narrative 01/15/2025 11:28 AM CDT [facility] [place] [address] Transthoracic Echocardiographic Report Patient Name: HAYLEY LEÓN L : 1990 (34y 11m) Gender: F Study Date: 01/15/2025 08:50:13 AM Ht(Inch): 61 Wt(Lb): 102.07 BSA: 1.41 Chief Design Branch: Roza. Watkins [facility] Location: [facility] Order Provider: BO FRIED Heart Rate: 81 [...] Note Italo Hill MD PhD - 01/15/2025 [facility] [place]iac [place] [address] Transthoracic Echocardiographic Report Patient Name: HAYLEY LEÓN L : 1990 (34y 11m) Gender: F Study Date: 01/15/2025 08:50:13 AM Ht(Inch): 61 Wt(Lb): 102.07 BSA: 1.41 Chief Design Branch: Roza. Watkins [facility] Location: [facility] Order Provider:BO FRIED Heart Rate: 81 BMI: [...] LA Length 2C 3.64 cm MV Decel Tbxi639.25 msec [ 104.00 - 258.00 ] LA [...] PM CDT) Anatomical Region Laterality Modality Other Oz Noble MD CV CARDIAC SERVICES PRO [...] NP LAB BLOOD ORDERABLES Krystyna meyers Result [facility] Department [place] [address] * (ABNORMAL) Basic metabolic panel (01/01/2025 2:10 PM CDT) Sodium 139 135 - 145 mmol/L Potassium, pl 2.9(L) 3.3 - 4.9 mmol/L [facility] Chloride 98 97 - 110 mmol/L [facility] CO2 26 22 - 32 mmol/L [facility] Anion gap 15 2 - 15 mmol/L [facility] BUN 11 6 - 25 mg/dL [facility] Creatinine 0.63 0.60 - 1.10 mg/dL [facility] Glucose 91 70 - 199 mg/dL [facility] Comment: Interpretive Data Fasting glucose [...] 2022. Calcium 9.2 8.5 - 10.3 mg/dL [facility] Blood 01/01/2025 2:10 PM CDT 01/01/2025 6:04 PM CDT [facility] LAB BLOOD ORDERABLES Krystyna l Result Performing Organization Address [facility] Co de Phone Number [facility] [place] [address] * Glucose, random (Outreach) (12/27/2024 9:13 AM [...] 9:13 AM CDT 12/27/2024 10:38 AM CDT [facility] [place] SLIDE FASTENER REPAIRER LAB BLOOD ORDERABLES Krystyna l Result Performing Organization Address [facility] Co de Phone Number [facility] Department [place] [address] * eGFR (12/27/2024 9:13 AM CDT) eGFR [...] 12/27/2024 10:50 AM CDT us Dorothea Stephen SLIDE FASTENER REPAIRER LAB BLOOD ORDERABLES Krystyna meyers Result [facility] Department [place] [address] * Differential, auto (12/27/2024 9:13 AM CDT) Neutrophil abs 3.36 1.50 - 6.50 K/cumm Imm gran abs 0.01 0.00 - 0.10 K/cumm [facility] Lymphocyte abs 1.97 0.80 - 3.30 K/cumm [facility] Monocyte abs 0.37 0.20 - 0.80 K/cumm [facility] Eosinophil abs 0.18 0.00 - 0.50 K/cumm [facility] Basophil abs 0.04 0.00 - 0.10 K/cumm [facility] Neutrophil pct 56.7 % [facility] Comment: Interpretive Data Percent cell count reference ranges are not reported, since discordance with absolute values may lead to misinterpretation of CBC data. Current Interpretive Data was last revised on 2017. Imm gran pct 0.2 % [facility] Comment: Interpretive Data Percent cell count reference ranges are not reported, since discordance with absolute values may lead to misinterpretation of CBC data. Current Interpretive Data was last revised on 2017. Lymphocyte pct 33.2 % [facility] Comment: Interpretive Data Percent cell count reference ranges are not reported, since discordance with absolute values may lead to misinterpretation of CBC data. Current Interpretive Data was last revised on 2017. Monocyte pct 6.2 % [facility] Comment: Interpretive Data Percent cell count reference ranges are not reported, since discordance with absolute values may lead to misinterpretation of CBC data. Current Interpretive Data was last revised on 2017. Eosinophil pct 3.0 % [facility] Comment: Interpretive Data Percent cell count reference ranges are not reported, since discordance with absolute values may lead to misinterpretation of CBC data. Current Interpretive Data was last revised on 2017. Basophil pct 0.7 % [facility] Comment: Interpretive Data Percent cell count reference ranges are not reported, since discordance with absolute values may lead to misinterpretation of CBC data. Current Interpretive Data was last revised on 2017. Blood 12/27/2024 9:13 AM CDT 12/27/2024 10:37 AM CDT Dorothea Stephen SLIDE FASTENER REPAIRER LAB BLOOD ORDERABLES Krystyna meyers Result [facility] Department [place] [address] * (ABNORMAL) Comprehensive metabolic panel, without glucose (Outreach) (12/27/2024 9:13 AM CDT) Sodium 136 135 - 145 mmol/L Potassium, pl 2.9(L) 3.3 - 4.9 mmol/L [facility] Chloride 98 97 - 110 mmol/L [facility] CO2 24 22 - 32 mmol/L [facility] Anion gap 14 2 - 15 mmol/L [facility] BUN 9 6 - 25 mg/dL [facility] Creatinine 0.64 0.60 - 1.10 mg/dL [facility] Calcium 9.7 8.5 - 10.3 mg/dL [facility] Protein, pl 8.2 6.5 - 8.5 g/dL [facility] Albumin 4.2 3.5 - 5.0 g/dL [facility] Bilirubin, total 0.7 0.1 - 1.2 mg/dL [facility] Alk phos 175(H) 40 - 130 Units/L [facility] AST 51(H) 10 - 45 Units/L [facility] ALT 25 7 - 45 Units/L [facility] Blood 12/27/2024 9:13 AM CDT 12/27/2024 10:38 AM CDT us Dorothea Stephen NP LAB BLOOD ORDERABLES Krystyna meyers Result [facility] Department [place] [address] * (ABNORMAL) CBC with auto differential (12/27/2024 9:13 AM CDT) [facility] WBC 5.93 3.80 - 9.90 K/cumm Hgb 13.9 11.9 - 15.5 g/dL [facility] Hct 40.1 35.6 - 45.5 % [facility] Plt 138(L) 150 - 400 K/cumm [facility] MPV 11.4 9.1 - 12.3 fL [facility] RBC 4.23 3.90 - 5.20 M/cumm [facility] MCV 94.8 81.3 - 96.4 fL [facility] MCH 32.9 27.1 - 33.3 pg [facility] MCHC 34.7 32.3 - 35.7 g/dL [facility] RDW CV 13.0 11.1 - 14.9 % [facility] RDW SD 45.3 35.7 - 48.1 fL [facility] NRBC abs 0.00 0.00 - 0.01 K/cumm [facility] Blood 12/27/2024 9:13 AM CDT 12/27/2024 10:37 AM CDT Dorothea Stephen SLIDE FASTENER REPAIRER LAB BLOOD ORDERABLES Krystyna l Result Performing Organization Address City/[facility]/ZIP Co de Phone Number [facility] [place] [address] * Magnesium (12/27/2024 9:13 AM CDT) Magnesium 1.9 1.4 - 2.5 mg/dL Blood 12/27/2024 9:13 AM CDT 12/27/2024 10:50 AM CDT Mo Villatoro MD LAB BLOOD ORDERABLES Final Resul t Performing Organization Address [facility] [place] [address] * Blood culture Blood (12/27/2024 9:05 AM CDT) Report Final Report: No growth Blood 12/27/2024 9:05 AM CDT 12/27/2024 11:47 AM CDT [facility]ative [facility] - 12/31/2024 12:00 PM CDT Specimen received [...] performance characteristics have been verified by the [facility] Microbiology Laboratory. For questions about this culture, contact the Microbiology Laboratory at [phone]. Interpretive data was last revised on 24. Dorothea Stephen NP LAB MICROBIOLOGY - GENERA L ORDERABLES Final Result [facility] Department [place] [address] * Blood culture Blood (12/27/2024 9:05 AM CDT) Report Final Report: No growth Blood 12/27/2024 9:05 AM CDT 12/27/2024 11:47 AM CDT Narrative [facility] - 12/31/2024 12:00 PM CDT Specimen [...] performance characteristics have been verified by the [facility] Microbiology Laboratory. For questions about this culture, contact the Microbiology Laboratory at [phone]. Interpretive data was last revised on 24. us Dorothea Stephen NP LAB MICROBIOLOGY - GENERA L ORDERABLES Final Result Performing Organization Address [facility] Co de Phone Number [facility] Department [place] [address] * (ABNORMAL) Cystatin C (11/28/2024 10:45 AM [...] last revised on 2020. Testing performed by: [facility], [facility], [place]., [address] Blood 11/28/2024 10:4 5 AM CDT 11/28/2024 12:03 PM CDT us Alex Wynn MD LAB BLOOD ORDERABLES Final Resu lt Performing Organization Address [facility] de Phone Number [facility] Department [place] [address] * eGFR (11/27/2024 9:44 PM CDT) eGFR [...] MD LAB BLOOD ORDERABLES Krystyna mira Result [facility] Department [place] [address] * (ABNORMAL) Differential, auto (11/27/2024 9:44 PM CDT) Neutrophil abs 2.70 1.50 - 6.50 K/cumm Imm gran abs 0.03 0.00 - 0.10 K/cumm [facility] Lymphocyte abs 2.90 0.80 - 3.30 K/cumm [facility] Monocyte abs 0.50 0.20 - 0.80 K/cumm [facility] Eosinophil abs 0.13 0.00 - 0.50 K/cumm [facility] Basophil abs 0.13(H) 0.00 - 0.10 K/cumm [facility] Neutrophil pct 42.3 % [facility] Comment: Interpretive Data Percent cell count reference ranges are not reported, since discordance with absolute values may lead to misinterpretation of CBC data. Current Interpretive Data was last revised on 2017. Imm gran pct 0.5 % [facility] Comment: Interpretive Data Percent cell count reference ranges are not reported, since discordance with absolute values may lead to misinterpretation of CBC data. Current Interpretive Data was last revised on 2017. Lymphocyte pct 45.4 % [facility] Comment: Interpretive Data Percent cell count reference ranges are not reported, since discordance with absolute values may lead to misinterpretation of CBC data. Current Interpretive Data was last revised on 2017. Monocyte pct 7.8 % [facility] Comment: Interpretive Data Percent cell count reference ranges are not reported, since discordance with absolute values may lead to misinterpretation of CBC data. Current Interpretive Data was last revised on 2017. Eosinophil pct 2.0 % [facility] Comment: Interpretive Data Percent cell count reference ranges are not reported, since discordance with absolute values may lead to misinterpretation of CBC data. Current Interpretive Data was last revised on 2017. Basophil pct 2.0 % [facility] Comment: Interpretive Data Percent cell count reference ranges are not reported, since discordance with absolute values may lead to misinterpretation of CBC data. Current Interpretive Data was last revised on 2017. Blood 11/27/2024 9:44 PM CDT 11/27/2024 10:41 PM CDT Lee Elena MD LAB BLOOD ORDERABLES Krystyna meyers Result [facility] Department [place] [address] * (ABNORMAL) CBC with auto differential (11/27/2024 9:44 PM CDT) WBC 6.39 3.80 - 9.90 K/cumm Hgb 10.5(L) 11.9 - 15.5 g/dL [facility] Hct 32.5(L) 35.6 - 45.5 % [facility] Plt 419(H) 150 - 400 K/cumm [facility] MPV 9.3 9.1 - 12.3 fL [facility] RBC 3.10(L) 3.90 - 5.20 M/cumm [facility] MCV 104.8(H) 81.3 - 96.4 fL [facility] MCH 33.9(H) 27.1 - 33.3 pg [facility] MCHC 32.3 32.3 - 35.7 g/dL [facility] RDW CV 18.6(H) 11.1 - 14.9 % [facility] RDW SD 71.7(H) 35.7 - 48.1 fL [facility] NRBC abs 0.00 0.00 - 0.01 K/cumm [facility] Blood 11/27/2024 9:44 PM CDT 11/27/2024 10:41 PM CDT Lee Elena MD LAB BLOOD ORDERABLES Krystyna l Result Performing Organization Address City/[facility] Co de Phone Number [facility] Department [place] [address] * (ABNORMAL) Vitamin D 25 hydroxy (11/27/2024 9:44 PM CDT) Vitamin D 25-OH 27(L) 30 - 80 ng/mL Blood 11/27/2024 9:44 PM CDT 11/27/2024 10:41 PM CDT Alex Wynn MD LAB BLOOD ORDERABLES Final Resu lt Performing Organization Address [facility] de Phone Number [facility] Department [place] [address] * Protime-INR (11/27/2024 9:44 PM CDT) PT 10.2 9.7 - 13.0 sec INR 0.95 0.90 - 1.20 [facility] Comment: Interpretive data Oral anticoagulant [...] ORDERABLES Krystyna l Result Performing Organization Address [facility] Co de Phone Number [facility] [place] [address] * (ABNORMAL) Phosphorus (11/27/2024 9:44 PM CDT) [facility] Phosphorus, pl 6.6(H) 2.3 - 4.5 mg/dL Blood 11/27/2024 9:44 PM CDT 11/27/2024 10:41 PM CDT Lee Elena MD LAB BLOOD ORDERAB[place] [address] * Magnesium (11/27/2024 9:44 PM CDT) [facility] Magnesium 1.6 1.4 - 2.5 mg/dL Blood 11/27/2024 9:44 PM CDT 11/27/2024 10:41 PM CDT Lee Elena MD LAB BLOOD ORDERABLES Krystyna l Result Performing Organization Address City/[facility] [place] [address] * (ABNORMAL) Hepatic function panel (11/27/2024 9:44 PM CDT) [facility] Bilirubin, total 0.4 0.1 - 1.2 mg/dL Bilirubin, direct 0.2 0.1 - 0.3 mg/dL [facility] Protein, pl 7.3 6.5 - 8.5 g/dL [facility] Albumin 3.4(L) 3.5 - 5.0 g/dL [facility] Alk phos 133(H) 40 - 130 Units/L [facility] ALT 17 7 - 45 Units/L [facility] AST 36 10 - 45 Units/L [facility] Blood 11/27/2024 9:44 PM CDT 11/27/2024 10:41 PM CDT Lee Elena MD LAB BLOOD ORDERABLES Krystyna l Result [facility] Department [place] [address] * (ABNORMAL) Basic metabolic panel (11/27/2024 9:44 PM CDT) [facility] Sodium 139 135 - 145 mmol/L Potassium, pl 4.3 3.3 - 4.9 mmol/L [facility] Chloride 101 97 - 110 mmol/L [facility] CO2 31 22 - 32 mmol/L [facility] Anion gap 7 2 - 15 mmol/L [facility] BUN 18 6 - 25 mg/dL [facility] Creatinine 0.50(L) 0.60 - 1.10 mg/dL [facility] Glucose 99 70 - 199 mg/dL [facility] Comment: Interpretive Data Fasting glucose [...] 2022. Calcium 10.0 8.5 - 10.3 mg/dL [facility] Blood 11/27/2024 9:44 PM CDT 11/27/2024 10:41 PM CDT Lee Elena MD LAB BLOOD ORDERABLES Krystyna l Result Performing Organization Address [facility]/ZIP Co de Phone Number [facility] Department [place] [address] * eGFR (11/26/2024 9:38 PM CDT) [facility] eGFR >90 >=60 mL/min/1. 73 m2 Comment: [...] MD LAB BLOOD ORDERABLES Krystyna meyers Result [facility] Department [place] [address] * (ABNORMAL) Differential, auto (11/26/2024 9:38 PM CDT) [facility] Neutrophil abs 2.02 1.50 - 6.50 K/cumm Imm gran abs 0.03 0.00 - 0.10 K/cumm [facility] Lymphocyte abs 3.04 0.80 - 3.30 K/cumm [facility] Monocyte abs 0.56 0.20 - 0.80 K/cumm [facility] Eosinophil abs 0.10 0.00 - 0.50 K/cumm [facility] Basophil abs 0.11(H) 0.00 - 0.10 K/cumm [facility] Neutrophil pct 34.4 % [facility] Comment: Interpretive Data Percent cell count reference ranges are not reported, since discordance with absolute values may lead to misinterpretation of CBC data. Current Interpretive Data was last revised on 2017. Imm gran pct 0.5 % [facility] Comment: Interpretive Data Percent cell count reference ranges are not reported, since discordance with absolute values may lead to misinterpretation of CBC data. Current Interpretive Data was last revised on 2017. Lymphocyte pct 51.9 % [facility] Comment: Interpretive Data Percent cell count reference ranges are not reported, since discordance with absolute values may lead to misinterpretation of CBC data. Current Interpretive Data was last revised on 2017. Monocyte pct 9.6 % [facility] Comment: Interpretive Data Percent cell count reference ranges are not reported, since discordance with absolute values may lead to misinterpretation of CBC data. Current Interpretive Data was last revised on 2017. Eosinophil pct 1.7 % [facility] Comment: Interpretive Data Percent cell count reference ranges are not reported, since discordance with absolute values may lead to misinterpretation of CBC data. Current Interpretive Data was last revised on 2017. Basophil pct 1.9 % [facility] Comment: Interpretive Data Percent cell count reference ranges are not reported, since discordance with absolute values may lead to misinterpretation of CBC data. Current Interpretive Data was last revised on 2017. Blood 11/26/2024 9:38 PM CDT 11/26/2024 10:36 PM CDT us Lee Elena MD LAB BLOOD ORDERABLES Krystyna meyers Result [facility] [place] [address] * (ABNORMAL) CBC with auto differential (11/26/2024 9:38 PM CDT) WBC 5.86 3.80 - 9.90 K/cumm Hgb 9.7(L) 11.9 - 15.5 g/dL [facility] Hct 29.7(L) 35.6 - 45.5 % [facility] Plt 398 150 - 400 K/cumm [facility] MPV 9.2 9.1 - 12.3 fL [facility] RBC 2.87(L) 3.90 - 5.20 M/cumm [facility] MCV 103.5(H) 81.3 - 96.4 fL [facility] MCH 33.8(H) 27.1 - 33.3 pg [facility] MCHC 32.7 32.3 - 35.7 g/dL [facility] RDW CV 18.7(H) 11.1 - 14.9 % [facility] RDW SD 71.5(H) 35.7 - 48.1 fL [facility] NRBC abs 0.00 0.00 - 0.01 K/cumm [facility] Blood 11/26/2024 9:38 PM CDT 11/26/2024 10:36 PM CDT Lee Elena MD LAB BLOOD ORDERABLES Krystyna l Result Performing Organization Address [facility] de Phone Number [facility] Department [place] [address] * (ABNORMAL) Protime-INR (11/26/2024 9:38 PM CDT) [facility] PT 9.5(L) 9.7 - 13.0 sec INR 0.88(L) 0.90 - 1.20 [facility] Comment: Interpretive data Oral anticoagulant [...] ORDERABLES Krystyna l Result Performing Organization Address [facility] de Phone Number [facility] Department [place] [address] * (ABNORMAL) Phosphorus (11/26/2024 9:38 PM CDT) Pathologist [facility] Phosphorus, pl 5.7(H) 2.3 - 4.5 mg/dL Blood 11/26/2024 9:38 PM CDT 11/26/2024 10:42 PM CDT Lee Elena MD LAB BLOOD ORDERABLES Krystyna l Result Performing Organization Address City/[facility]/[place] [address] * Magnesium (11/26/2024 9:38 PM CDT) [facility] Magnesium 2.1 1.4 - 2.5 mg/dL Blood 11/26/2024 9:38 PM CDT 11/26/2024 10:42 PM CDT Lee Elena MD LAB BLOOD ORDERABLES Krystyna l Result Performing Organization Address [facility] [place] [address] * (ABNORMAL) Hepatic function panel (11/26/2024 9:38 PM CDT) Pathologist [facility] Bilirubin, total 0.3 0.1 - 1.2 mg/dL Bilirubin, direct 0.2 0.1 - 0.3 mg/dL [facility] Protein, pl 6.5 6.5 - 8.5 g/dL [facility] Albumin 2.8(L) 3.5 - 5.0 g/dL [facility] Alk phos 132(H) 40 - 130 Units/L [facility] ALT 17 7 - 45 Units/L [facility] AST 38 10 - 45 Units/L [facility] Blood 11/26/2024 9:38 PM CDT 11/26/2024 10:42 PM CDT Lee Elena MD LAB BLOOD ORDERABLES Krystyna meyers Result Performing Organization Address City/[facility]/ZIP Co de Phone Number [facility] Department [place] [address] * (ABNORMAL) Basic metabolic panel (11/26/2024 9:38 PM CDT) Pathologist [facility] Sodium 141 135 - 145 mmol/L Potassium, pl 4.1 3.3 - 4.9 mmol/L [facility] Chloride 101 97 - 110 mmol/L [facility] CO2 29 22 - 32 mmol/L [facility] Anion gap 11 2 - 15 mmol/L [facility] BUN 15 6 - 25 mg/dL [facility] Creatinine 0.54(L) 0.60 - 1.10 mg/dL [facility] Glucose 89 70 - 199 mg/dL [facility] Comment: Interpretive Data Fasting glucose [...] 2022. Calcium 9.1 8.5 - 10.3 mg/dL [facility] Blood 11/26/2024 9:38 PM CDT 11/26/2024 10:42 PM CDT Lee Elena MD LAB BLOOD ORDERABLES Krystyna l Result Performing Organization Address [facility]/ZIP Co de Phone Number [facility] Department [place] [address] * TRANSTHORACIC ECHO (TTE) LIMITED/FOLLOW UP W LTD DOPPLER/CF W CONTRAST (11/26/2024 1:54 PM CDT) Estimated EF 55-60 % CONS SCIMAGE Anatomical Region Laterality Modality Ultrasound 11/26/2024 1:05 PM CDT Narrative 11/26/2024 2:37 PM CDT [facility] [place] [address] Transthoracic Echocardiographic Report Patient Name: HAYLEY LEÓN L : 1990 (34y 9m) Gender: F Study Date: 11/26/2024 01:05:04 PM Ht(Inch): 61 Wt(Lb): 98.1 BSA: 1.38 Chief Design Branch: Lise [place] Location: [id number] Order Provider: ALEX WYNN Heart Rate: 72 [...] Procedure Note Jim Malloy MD - 11/26/2024 [facility] [place] [address] Transthoracic Echocardiographic Report Patient Name: HAYLEY LEÓN L : 1990 (34y 9m) Gender: F Study Date: 11/26/2024 01:05:04 PM Ht(Inch): 61 Wt(Lb): 98.1 BSA: 1.38 Chief Design Branch: Lise De [place] Location: [place] [address] Order Provider:ALEX WYNN Heart Rate: 72 BMI: [...] M.D. 11/26/2024 2:35:57 PM CDT us Alex Wynn MD CV ECHO PROCEDURES Final Result * POCT glucose (11/26/2024 7:38 AM CDT) Glucose, POC 107 70 - 199 mg/dL Blood 11/26/2024 7:38 AM CDT 11/26/2024 7:38 AM CDT us Alex Wynn MD LAB POCT ORDERABLES - DEVICE Fi nal Result [facility] Department [place] [address] * eGFR (11/25/2024 9:19 PM CDT) eGFR [...] MD LAB BLOOD ORDERABLES Krystyna mira Result [facility] [place] [address] * Differential, auto (11/25/2024 9:19 PM CDT) Pathologist [facility] Neutrophil abs 1.90 1.50 - 6.50 K/cumm Imm gran abs 0.02 0.00 - 0.10 K/cumm [facility] Lymphocyte abs 2.86 0.80 - 3.30 K/cumm [facility] Monocyte abs 0.53 0.20 - 0.80 K/cumm [facility] Eosinophil abs 0.11 0.00 - 0.50 K/cumm [facility] Basophil abs 0.09 0.00 - 0.10 K/cumm [facility] Neutrophil pct 34.5 % [facility] Comment: Interpretive Data Percent cell count reference ranges are not reported, since discordance with absolute values may lead to misinterpretation of CBC data. Current Interpretive Data was last revised on 2017. Imm gran pct 0.4 % [facility] Comment: Interpretive Data Percent cell count reference ranges are not reported, since discordance with absolute values may lead to misinterpretation of CBC data. Current Interpretive Data was last revised on 2017. Lymphocyte pct 51.9 % [facility] Comment: Interpretive Data Percent cell count reference ranges are not reported, since discordance with absolute values may lead to misinterpretation of CBC data. Current Interpretive Data was last revised on 2017. Monocyte pct 9.6 % [facility] Comment: Interpretive Data Percent cell count reference ranges are not reported, since discordance with absolute values may lead to misinterpretation of CBC data. Current Interpretive Data was last revised on 2017. Eosinophil pct 2.0 % [facility] Comment: Interpretive Data Percent cell count reference ranges are not reported, since discordance with absolute values may lead to misinterpretation of CBC data. Current Interpretive Data was last revised on 2017. Basophil pct 1.6 % [facility] Comment: Interpretive Data Percent cell count reference ranges are not reported, since discordance with absolute values may lead to misinterpretation of CBC data. Current Interpretive Data was last revised on 2017. Blood 11/25/2024 9:19 PM CDT 11/25/2024 10:49 PM CDT Lee Elena MD LAB BLOOD ORDERABLES Krystyna l Result Performing Organization Address City/[facility] Co de Phone Number [facility] Department [place] [address] * (ABNORMAL) CBC with auto differential (11/25/2024 9:19 PM CDT) WBC 5.51 3.80 - 9.90 K/cumm Hgb 10.2(L) 11.9 - 15.5 g/dL [facility] Hct 31.9(L) 35.6 - 45.5 % [facility] Plt 466(H) 150 - 400 K/cumm [facility] MPV 9.4 9.1 - 12.3 fL [facility] RBC 3.06(L) 3.90 - 5.20 M/cumm [facility] MCV 104.2(H) 81.3 - 96.4 fL [facility] MCH 33.3 27.1 - 33.3 pg [facility] MCHC 32.0(L) 32.3 - 35.7 g/dL [facility] RDW CV 19.1(H) 11.1 - 14.9 % [facility] RDW SD 72.8(H) 35.7 - 48.1 fL [facility] NRBC abs 0.00 0.00 - 0.01 K/cumm [facility] Blood 11/25/2024 9:19 PM CDT 11/25/2024 10:49 PM CDT Lee Elena MD LAB BLOOD ORDERABLES Krystyna l Result Performing Organization Address City/[facility] de Phone Number [facility] [place] [address] * Protime-INR (11/25/2024 9:19 PM CDT) Pathologist [facility] PT 10.0 9.7 - 13.0 sec INR 0.93 0.90 - 1.20 [facility] Comment: Interpretive data Oral anticoagulant [...] ORDERABLES Krystyna l Result Performing Organization Address [facility] de Phone Number [facility] [place] [address] * (ABNORMAL) Phosphorus (11/25/2024 9:19 PM CDT) [facility] Phosphorus, pl 5.2(H) 2.3 - 4.5 mg/dL Blood 11/25/2024 9:19 PM CDT 11/25/2024 10:47 PM CDT Lee Elena MD LAB BLOOD ORDERABLES Krystyna l Result Performing Organization Address [facility] [place] [address] * Magnesium (11/25/2024 9:19 PM CDT) [facility] Magnesium 1.6 1.4 - 2.5 mg/dL Blood 11/25/2024 9:19 PM CDT 11/25/2024 10:47 PM CDT Lee Elena MD LAB BLOOD ORDERABLES Krystyna l Result Performing Organization Address [facility] Co de Phone Number [facility] [place] [address] * (ABNORMAL) Hepatic function panel (11/25/2024 9:19 PM CDT) Bilirubin, total 0.4 0.1 - 1.2 mg/dL Bilirubin, direct 0.2 0.1 - 0.3 mg/dL [facility] Protein, pl 6.8 6.5 - 8.5 g/dL [facility] Albumin 3.0(L) 3.5 - 5.0 g/dL [facility] Alk phos 142(H) 40 - 130 Units/L [facility] ALT 16 7 - 45 Units/L [facility] AST 35 10 - 45 Units/L [facility] Blood 11/25/2024 9:19 PM CDT 11/25/2024 10:47 PM CDT Lee Elena MD LAB BLOOD ORDERABLES Krystyna l Result Performing Organization Address [facility] de Phone Number [facility] [place] [address] * (ABNORMAL) Basic metabolic panel (11/25/2024 9:19 PM CDT) Pathologist [facility] Sodium 143 135 - 145 mmol/L Potassium, pl 4.3 3.3 - 4.9 mmol/L [facility] Chloride 104 97 - 110 mmol/L [facility] CO2 29 22 - 32 mmol/L [facility] Anion gap 10 2 - 15 mmol/L [facility] BUN 16 6 - 25 mg/dL [facility] Creatinine 0.46(L) 0.60 - 1.10 mg/dL [facility] Glucose 99 70 - 199 mg/dL [facility] Comment: Interpretive Data Fasting glucose [...] 2022. Calcium 9.5 8.5 - 10.3 mg/dL [facility] Blood 11/25/2024 9:19 PM CDT 11/25/2024 10:47 PM CDT us Lee Elena MD LAB BLOOD ORDERABLES Krystyna l Result [facility] Department [place] [address] * eGFR (11/24/2024 9:18 PM CDT) eGFR [...] Lee Elena MD LAB BLOOD ORDERABLES Krystyna emyers Result [facility] Department [place] [address] * Differential, auto (11/24/2024 9:18 PM CDT) Neutrophil abs 1.96 1.50 - 6.50 K/cumm Imm gran abs 0.04 0.00 - 0.10 K/cumm [facility] Lymphocyte abs 2.69 0.80 - 3.30 K/cumm [facility] Monocyte abs 0.52 0.20 - 0.80 K/cumm [facility] Eosinophil abs 0.09 0.00 - 0.50 K/cumm [facility] Basophil abs 0.08 0.00 - 0.10 K/cumm [facility] Neutrophil pct 36.4 % [facility] Comment: Interpretive Data Percent cell count reference ranges are not reported, since discordance with absolute values may lead to misinterpretation of CBC data. Current Interpretive Data was last revised on 2017. Imm gran pct 0.7 % [facility] Comment: Interpretive Data Percent cell count reference ranges are not reported, since discordance with absolute values may lead to misinterpretation of CBC data. Current Interpretive Data was last revised on 2017. Lymphocyte pct 50.0 % [facility] Comment: Interpretive Data Percent cell count reference ranges are not reported, since discordance with absolute values may lead to misinterpretation of CBC data. Current Interpretive Data was last revised on 2017. Monocyte pct 9.7 % [facility] Comment: Interpretive Data Percent cell count reference ranges are not reported, since discordance with absolute values may lead to misinterpretation of CBC data. Current Interpretive Data was last revised on 2017. Eosinophil pct 1.7 % [facility] Comment: Interpretive Data Percent cell count reference ranges are not reported, since discordance with absolute values may lead to misinterpretation of CBC data. Current Interpretive Data was last revised on 2017. Basophil pct 1.5 % [facility] Comment: Interpretive Data Percent cell count reference ranges are not reported, since discordance with absolute values may lead to misinterpretation of CBC data. Current Interpretive Data was last revised on 2017. Blood 11/24/2024 9:18 PM CDT 11/24/2024 10:00 PM CDT Lee Elena MD LAB BLOOD ORDERABLES Krystyna l Result Performing Organization Address City/[facility]/ZIP Co de Phone Number [facility] Department [place] [address] * (ABNORMAL) CBC with auto differential (11/24/2024 9:18 PM CDT) WBC 5.38 3.80 - 9.90 K/cumm Hgb 9.4(L) 11.9 - 15.5 g/dL [facility] Hct 28.7(L) 35.6 - 45.5 % [facility] Plt 437(H) 150 - 400 K/cumm [facility] MPV 9.0(L) 9.1 - 12.3 fL [facility] RBC 2.80(L) 3.90 - 5.20 M/cumm [facility] MCV 102.5(H) 81.3 - 96.4 fL [facility] MCH 33.6(H) 27.1 - 33.3 pg [facility] MCHC 32.8 32.3 - 35.7 g/dL [facility] RDW CV 19.4(H) 11.1 - 14.9 % [facility] RDW SD 73.4(H) 35.7 - 48.1 fL [facility] NRBC abs 0.00 0.00 - 0.01 K/cumm [facility] Blood 11/24/2024 9:18 PM CDT 11/24/2024 10:00 PM CDT Lee Elena MD LAB BLOOD ORDERABLES Krystyna meyers Result Performing Organization Address [facility]/[place] [address] * Protime-INR (11/24/2024 9:18 PM CDT) Pathologist [facility] PT 10.1 9.7 - 13.0 sec INR 0.94 0.90 - 1.20 [facility] Comment: Interpretive data Oral anticoagulant [...] ORDERABLES Krystyna l Result Performing Organization Address City/[facility]/[place] [address] * (ABNORMAL) Phosphorus (11/24/2024 9:18 PM CDT) [facility] Phosphorus, pl 4.7(H) 2.3 - 4.5 mg/dL Blood 11/24/2024 9:18 PM CDT 11/24/2024 10:00 PM CDT Lee Elena MD LAB BLOOD ORDERABLES [place] [address] * Magnesium (11/24/2024 9:18 PM CDT) [facility] Magnesium 2.0 1.4 - 2.5 mg/dL Blood 11/24/2024 9:18 PM CDT 11/24/2024 10:00 PM CDT Lee Elena MD LAB BLOOD ORDERABLES Krystyna l Result Performing Organization Address [facility] Co de Phone Number [facility] [place] [address] * (ABNORMAL) Hepatic function panel (11/24/2024 9:18 PM CDT) Pathologist [facility] Bilirubin, total 0.3 0.1 - 1.2 mg/dL Bilirubin, direct 0.2 0.1 - 0.3 mg/dL [facility] Protein, pl 6.4(L) 6.5 - 8.5 g/dL [facility] Albumin 2.8(L) 3.5 - 5.0 g/dL [facility] Alk phos 148(H) 40 - 130 Units/L [facility] ALT 14 7 - 45 Units/L [facility] AST 38 10 - 45 Units/L [facility] Blood 11/24/2024 9:18 PM CDT 11/24/2024 10:00 PM CDT Lee Elena MD LAB BLOOD ORDERABLES Krystyna l Result Performing Organization Address [facility] de Phone Number [facility] Department [place] [address] * (ABNORMAL) Basic metabolic panel (11/24/2024 9:18 PM CDT) Pathologist [facility] Sodium 142 135 - 145 mmol/L Potassium, pl 4.1 3.3 - 4.9 mmol/L [facility] Chloride 104 97 - 110 mmol/L [facility] CO2 30 22 - 32 mmol/L [facility] Anion gap 8 2 - 15 mmol/L [facility] BUN 16 6 - 25 mg/dL [facility] Creatinine 0.51(L) 0.60 - 1.10 mg/dL [facility] Glucose 101 70 - 199 mg/dL [facility] Comment: Interpretive Data Fasting glucose [...] 2022. Calcium 9.0 8.5 - 10.3 mg/dL [facility] Blood 11/24/2024 9:18 PM CDT 11/24/2024 10:00 PM CDT us Lee Elena MD LAB BLOOD ORDERABLES Krystyna l Result Performing Organization Address City/[facility]/ZIP Co de Phone Number [facility] Department [place] [address] * POCT glucose (11/24/2024 7:49 PM CDT) [facility] Glucose, POC 104 70 - 199 mg/dL Blood 11/24/2024 7:49 PM CDT 11/24/2024 7:49 PM CDT us Alex Wynn MD LAB POCT ORDERABLES - DEVICE Fi nal Result Performing Organization Address City/[facility]/ZIP Co de Phone Number [facility] Department [place] [address] * ECG 12 lead (11/24/2024 7:01 AM CDT) Ventricular Rate EKG/Min 77 BPM [facility] Atrial Rate 77 BPM [facility] NE-Interval (MSEC) 134 ms [facility] QRS-Interval (MSEC) 70 ms [facility] QT-Interval (MSEC) 456 ms [facility] QTc 516 ms [facility] P [place] 38 degrees [facility] R [place] 36 degrees [facility] T [place] 137 degrees [facility] Diagnosis Normal sinus rhythm Low voltage QRS T wave abnormality, consider lateral ischemia Prolonged QT Abnormal ECG When compared with ECG of 23-NOV-2024 18:23, (unconfirmed) No significant change was found Confirmed by SHALINI RODRIGUEZ M.D ([id number]) on 11/27/2024 12:19:52 PM [facility] 11/24/2024 7:01 AM CDT 11/27/2024 12:19 PM CDT us Lee Elena MD ECG ORDERABLES Final Res ult [facility] * eGFR (11/23/2024 10:10 PM CDT) [...] LAB BLOOD ORDERABLES Krystyna l Result [facility] Department [place] [address] * Differential, auto (11/23/2024 10:10 PM CDT) Neutrophil abs 6.22 1.50 - 6.50 K/cumm Imm gran abs 0.05 0.00 - 0.10 K/cumm [facility] Lymphocyte abs 2.05 0.80 - 3.30 K/cumm [facility] Monocyte abs 0.66 0.20 - 0.80 K/cumm [facility] Eosinophil abs 0.10 0.00 - 0.50 K/cumm [facility] Basophil abs 0.08 0.00 - 0.10 K/cumm [facility] Neutrophil pct 67.9 % [facility] Comment: Interpretive Data Percent cell count reference ranges are not reported, since discordance with absolute values may lead to misinterpretation of CBC data. Current Interpretive Data was last revised on 2017. Imm gran pct 0.5 % [facility] Comment: Interpretive Data Percent cell count reference ranges are not reported, since discordance with absolute values may lead to misinterpretation of CBC data. Current Interpretive Data was last revised on 2017. Lymphocyte pct 22.4 % [facility] Comment: Interpretive Data Percent cell count reference ranges are not reported, since discordance with absolute values may lead to misinterpretation of CBC data. Current Interpretive Data was last revised on 2017. Monocyte pct 7.2 % [facility] Comment: Interpretive Data Percent cell count reference ranges are not reported, since discordance with absolute values may lead to misinterpretation of CBC data. Current Interpretive Data was last revised on 2017. Eosinophil pct 1.1 % [facility] Comment: Interpretive Data Percent cell count reference ranges are not reported, since discordance with absolute values may lead to misinterpretation of CBC data. Current Interpretive Data was last revised on 2017. Basophil pct 0.9 % [facility] Comment: Interpretive Data Percent cell count reference ranges are not reported, since discordance with absolute values may lead to misinterpretation of CBC data. Current Interpretive Data was last revised on 2017. Blood 11/23/2024 10:1 0 PM CDT 11/23/2024 11:09 PM CDT Lee Elena MD LAB BLOOD ORDERABLES Krystyna l Result Performing Organization Address City/[facility]/ZIP Co de Phone Number [facility] Department [place] [address] * (ABNORMAL) CBC with auto differential (11/23/2024 10:10 PM CDT) WBC 9.16 3.80 - 9.90 K/cumm Hgb 9.8(L) 11.9 - 15.5 g/dL [facility] Hct 29.9(L) 35.6 - 45.5 % [facility] Plt 483(H) 150 - 400 K/cumm [facility] MPV 9.2 9.1 - 12.3 fL [facility] RBC 2.92(L) 3.90 - 5.20 M/cumm [facility] MCV 102.4(H) 81.3 - 96.4 fL [facility] MCH 33.6(H) 27.1 - 33.3 pg [facility] MCHC 32.8 32.3 - 35.7 g/dL [facility] RDW CV 19.3(H) 11.1 - 14.9 % [facility] RDW SD 72.0(H) 35.7 - 48.1 fL [facility] NRBC abs 0.00 0.00 - 0.01 K/cumm [facility] Blood 11/23/2024 10:1 0 PM CDT 11/23/2024 11:09 PM CDT Lee Elena MD LAB BLOOD ORDERABLES Krystyna l Result [facility] Department [place] [address] * Protime-INR (11/23/2024 10:10 PM CDT) PT 10.5 9.7 - 13.0 sec INR 0.97 0.90 - 1.20 [facility] Comment: Interpretive data Oral anticoagulant [...] ORDERABLES Krystyna l Result Performing Organization Address City/[facility] [place] [address] * (ABNORMAL) Phosphorus (11/23/2024 10:10 PM CDT) Phosphorus, pl 5.5(H) 2.3 - 4.5 mg/dL Blood 11/23/2024 10:1 0 PM CDT 11/23/2024 11:09 PM CDT Lee Elena MD LAB BLOOD ORDERABLES Krystyna l Result Performing Organization Address [facility] Co de Phone Number [facility] [place] [address] * Magnesium (11/23/2024 10:10 PM CDT) Magnesium 1.5 1.4 - 2.5 mg/dL Blood 11/23/2024 10:1 0 PM CDT 11/23/2024 11:09 PM CDT Lee Elena MD LAB BLOOD ORDERABLES Krystyna l Result Performing Organization Address [facility] Co de Phone Number [facility] [place] [address] * (ABNORMAL) Hepatic function panel (11/23/2024 10:10 PM CDT) [facility] Bilirubin, total 0.4 0.1 - 1.2 mg/dL Bilirubin, direct 0.2 0.1 - 0.3 mg/dL [facility] Protein, pl 6.3(L) 6.5 - 8.5 g/dL [facility] Albumin 2.9(L) 3.5 - 5.0 g/dL [facility] Alk phos 143(H) 40 - 130 Units/L [facility] ALT 14 7 - 45 Units/L [facility] AST 37 10 - 45 Units/L [facility] Blood 11/23/2024 10:1 0 PM CDT 11/23/2024 11:09 PM CDT Lee Elena MD LAB BLOOD ORDERABLES Krystyna meyers Result [facility] Department [place] [address] * (ABNORMAL) Basic metabolic panel (11/23/2024 10:10 PM CDT) [facility] Sodium 140 135 - 145 mmol/L Potassium, pl 3.6 3.3 - 4.9 mmol/L [facility] Chloride 100 97 - 110 mmol/L [facility] CO2 31 22 - 32 mmol/L [facility] Anion gap 9 2 - 15 mmol/L [facility] BUN 15 6 - 25 mg/dL [facility] Creatinine 0.52(L) 0.60 - 1.10 mg/dL [facility] Glucose 90 70 - 199 mg/dL [facility] Comment: Interpretive Data Fasting glucose [...] 2022. Calcium 9.5 8.5 - 10.3 mg/dL [facility] Blood 11/23/2024 10:1 0 PM CDT 11/23/2024 11:09 PM CDT us Lee Elena MD LAB BLOOD ORDERABLES Krystyna l Result Performing Organization Address [facility] Co de Phone Number [facility] Department [place] [address] * POCT glucose (11/23/2024 9:14 PM CDT) Glucose, POC 107 70 - 199 mg/dL Blood 11/23/2024 9:14 PM CDT 11/23/2024 9:14 PM CDT us Alex Wynn MD LAB POCT ORDERABLES - DEVICE Fi nal Result Performing Organization Address [facility] Co de Phone Number [facility] [place] [address] * ECG 12 lead (11/23/2024 6:23 PM CDT) Ventricular Rate EKG/Min 84 BPM [facility] Atrial Rate 84 BPM [facility] NE-Interval (MSEC) 118 ms [facility] QRS-Interval (MSEC) 70 ms [facility] QT-Interval (MSEC) 426 ms [facility] QTc 503 ms [facility] P [place] 23 degrees [facility] R [place] 44 degrees [facility] T [place] 136 degrees [facility] Diagnosis Normal sinus rhythm T wave abnormality, consider lateral ischemia Prolonged QT Abnormal ECG When compared with ECG of 20-NOV-2024 13:20, No significant change was found Confirmed by SHALINI RODRIGUEZ M.D ([id number]) on 11/27/2024 12:19:17 PM [facility] 11/23/2024 6:23 PM CDT 11/27/2024 12:19 PM CDT us Lee Elena MD ECG ORDERABLES Final Res ult Performing Organization Address City/[facility]/ZIP Co de Phone Number [facility] * eGFR (11/22/2024 9:37 PM CDT) [...] ORDERABLES Krystyna l Result Performing Organization Address [facility] Co de Phone Number [facility] Department [place] [address] * (ABNORMAL) Differential, auto (11/22/2024 9:37 PM CDT) Neutrophil abs 3.27 1.50 - 6.50 K/cumm Imm gran abs 0.06 0.00 - 0.10 K/cumm [facility] Lymphocyte abs 2.86 0.80 - 3.30 K/cumm [facility] Monocyte abs 0.70 0.20 - 0.80 K/cumm [facility] Eosinophil abs 0.15 0.00 - 0.50 K/cumm [facility] Basophil abs 0.11(H) 0.00 - 0.10 K/cumm [facility] Neutrophil pct 45.8 % [facility] Comment: Interpretive Data Percent cell count reference ranges are not reported, since discordance with absolute values may lead to misinterpretation of CBC data. Current Interpretive Data was last revised on 2017. Imm gran pct 0.8 % [facility] Comment: Interpretive Data Percent cell count reference ranges are not reported, since discordance with absolute values may lead to misinterpretation of CBC data. Current Interpretive Data was last revised on 2017. Lymphocyte pct 40.0 % [facility] Comment: Interpretive Data Percent cell count reference ranges are not reported, since discordance with absolute values may lead to misinterpretation of CBC data. Current Interpretive Data was last revised on 2017. Monocyte pct 9.8 % [facility] Comment: Interpretive Data Percent cell count reference ranges are not reported, since discordance with absolute values may lead to misinterpretation of CBC data. Current Interpretive Data was last revised on 2017. Eosinophil pct 2.1 % [facility] Comment: Interpretive Data Percent cell count reference ranges are not reported, since discordance with absolute values may lead to misinterpretation of CBC data. Current Interpretive Data was last revised on 2017. Basophil pct 1.5 % [facility] Comment: Interpretive Data Percent cell count reference ranges are not reported, since discordance with absolute values may lead to misinterpretation of CBC data. Current Interpretive Data was last revised on 2017. Blood 11/22/2024 9:37 PM CDT 11/22/2024 10:34 PM CDT us Lee Elena MD LAB BLOOD ORDERABLES Krystyna meyers Result [facility] Department [place] [address] * (ABNORMAL) CBC with auto differential (11/22/2024 9:37 PM CDT) WBC 7.15 3.80 - 9.90 K/cumm Hgb 9.4(L) 11.9 - 15.5 g/dL [facility] Hct 28.9(L) 35.6 - 45.5 % [facility] Plt 542(H) 150 - 400 K/cumm [facility] MPV 9.4 9.1 - 12.3 fL [facility] RBC 2.81(L) 3.90 - 5.20 M/cumm [facility] MCV 102.8(H) 81.3 - 96.4 fL [facility] MCH 33.5(H) 27.1 - 33.3 pg [facility] MCHC 32.5 32.3 - 35.7 g/dL [facility] RDW CV 19.6(H) 11.1 - 14.9 % [facility] RDW SD 73.3(H) 35.7 - 48.1 fL [facility] NRBC abs 0.00 0.00 - 0.01 K/cumm [facility] Blood 11/22/2024 9:37 PM CDT 11/22/2024 10:34 PM CDT us Lee Elena MD LAB BLOOD ORDERABLES Krystyna meyers Result [facility] Department [place] [address] * Protime-INR (11/22/2024 9:37 PM CDT) [facility] PT 10.1 9.7 - 13.0 sec INR 0.94 0.90 - 1.20 [facility] Comment: Interpretive data Oral anticoagulant [...] ORDERABLES Krystyna l Result Performing Organization Address [facility] Co de Phone Number [facility] [place] [address] * (ABNORMAL) Phosphorus (11/22/2024 9:37 PM CDT) Phosphorus, pl 4.9(H) 2.3 - 4.5 mg/dL Blood 11/22/2024 9:37 PM CDT 11/22/2024 10:33 PM CDT Lee Elena MD LAB BLOOD ORDERABLES Krystyna l Result Performing Organization Address [facility] Co de Phone Number [facility] [place] [address] * Magnesium (11/22/2024 9:37 PM CDT) Magnesium 1.6 1.4 - 2.5 mg/dL Blood 11/22/2024 9:37 PM CDT 11/22/2024 10:33 PM CDT Lee Elena MD LAB BLOOD ORDERABLES Krystyna l Result Performing Organization Address [facility] Co de Phone Number [facility] [place] [address] * (ABNORMAL) Hepatic function panel (11/22/2024 9:37 PM CDT) Bilirubin, total 0.4 0.1 - 1.2 mg/dL Bilirubin, direct 0.2 0.1 - 0.3 mg/dL [facility] Protein, pl 6.0(L) 6.5 - 8.5 g/dL [facility] Albumin 2.6(L) 3.5 - 5.0 g/dL [facility] Alk phos 163(H) 40 - 130 Units/L [facility] ALT 12 7 - 45 Units/L [facility] AST 41 10 - 45 Units/L [facility] Blood 11/22/2024 9:37 PM CDT 11/22/2024 10:33 PM CDT Lee Elena MD LAB BLOOD ORDERABLES Krystyna l Result Performing Organization Address [facility]/ZIP Co de Phone Number [facility] Department [place] [address] * (ABNORMAL) Basic metabolic panel (11/22/2024 9:37 PM CDT) Pathologist [facility] Sodium 138 135 - 145 mmol/L Potassium, pl 4.3 3.3 - 4.9 mmol/L [facility] Chloride 97 97 - 110 mmol/L [facility] CO2 32 22 - 32 mmol/L [facility] Anion gap 9 2 - 15 mmol/L [facility] BUN 17 6 - 25 mg/dL [facility] Creatinine 0.52(L) 0.60 - 1.10 mg/dL [facility] Glucose 104 70 - 199 mg/dL [facility] Comment: Interpretive Data Fasting glucose [...] 2022. Calcium 8.8 8.5 - 10.3 mg/dL [facility] Blood 11/22/2024 9:37 PM CDT 11/22/2024 10:33 PM CDT Lee Elena MD LAB BLOOD ORDERABLES Krystyna l Result Performing Organization Address City/[facility]/ZIP Co de Phone Number [facility] [place] [address] * eGFR (11/21/2024 10:49 PM CDT) Pathologist [facility] eGFR >90 >=60 mL/min/1. 73 m2 Comment: [...] ORDERABLES Krystyna meyers Result Performing Organization Address City/[facility]/ZIP Co de Phone Number [facility] Department [place] [address] * (ABNORMAL) Differential, auto (11/21/2024 10:49 PM CDT) Pathologist [facility] Neutrophil abs 2.76 1.50 - 6.50 K/cumm Imm gran abs 0.05 0.00 - 0.10 K/cumm [facility] Lymphocyte abs 3.11 0.80 - 3.30 K/cumm [facility] Monocyte abs 0.61 0.20 - 0.80 K/cumm [facility] Eosinophil abs 0.17 0.00 - 0.50 K/cumm [facility] Basophil abs 0.14(H) 0.00 - 0.10 K/cumm [facility] Neutrophil pct 40.4 % [facility] Comment: Interpretive Data Percent cell count reference ranges are not reported, since discordance with absolute values may lead to misinterpretation of CBC data. Current Interpretive Data was last revised on 2017. Imm gran pct 0.7 % [facility] Comment: Interpretive Data Percent cell count reference ranges are not reported, since discordance with absolute values may lead to misinterpretation of CBC data. Current Interpretive Data was last revised on 2017. Lymphocyte pct 45.5 % [facility] Comment: Interpretive Data Percent cell count reference ranges are not reported, since discordance with absolute values may lead to misinterpretation of CBC data. Current Interpretive Data was last revised on 2017. Monocyte pct 8.9 % [facility] Comment: Interpretive Data Percent cell count reference ranges are not reported, since discordance with absolute values may lead to misinterpretation of CBC data. Current Interpretive Data was last revised on 2017. Eosinophil pct 2.5 % [facility] Comment: Interpretive Data Percent cell count reference ranges are not reported, since discordance with absolute values may lead to misinterpretation of CBC data. Current Interpretive Data was last revised on 2017. Basophil pct 2.0 % [facility] Comment: Interpretive Data Percent cell count reference ranges are not reported, since discordance with absolute values may lead to misinterpretation of CBC data. Current Interpretive Data was last revised on 2017. Blood 11/21/2024 10:4 9 PM CDT 11/22/2024 12:33 AM CDT us Lee Elena MD LAB BLOOD ORDERABLES Krystyna meyers Result [facility] Department [place] [address] * (ABNORMAL) CBC with auto differential (11/21/2024 10:49 PM CDT) WBC 6.84 3.80 - 9.90 K/cumm Hgb 10.1(L) 11.9 - 15.5 g/dL [facility] Hct 30.3(L) 35.6 - 45.5 % [facility] Plt 610(H) 150 - 400 K/cumm [facility] MPV 9.3 9.1 - 12.3 fL [facility] RBC 2.98(L) 3.90 - 5.20 M/cumm [facility] MCV 101.7(H) 81.3 - 96.4 fL [facility] MCH 33.9(H) 27.1 - 33.3 pg [facility] MCHC 33.3 32.3 - 35.7 g/dL [facility] RDW CV 19.7(H) 11.1 - 14.9 % [facility] RDW SD 71.9(H) 35.7 - 48.1 fL [facility] NRBC abs 0.00 0.00 - 0.01 K/cumm [facility] Blood 11/21/2024 10:4 9 PM CDT 11/22/2024 12:33 AM CDT us Lee Elena MD LAB BLOOD ORDERABLES Krystyna meyers Result [facility] Department [place] [address] * Protime-INR (11/21/2024 10:49 PM CDT) PT 10.7 9.7 - 13.0 sec INR 0.99 0.90 - 1.20 [facility] Comment: Interpretive data Oral anticoagulant [...] ORDERABLES Krystyna l Result Performing Organization Address [facility] Co de Phone Number [facility] [place] [address] * (ABNORMAL) Phosphorus (11/21/2024 10:49 PM CDT) Phosphorus, pl 5.4(H) 2.3 - 4.5 mg/dL Blood 11/21/2024 10:4 9 PM CDT 11/22/2024 12:32 AM CDT Lee Elena MD LAB BLOOD ORDERABLES Krystyna l Result Performing Organization Address [facility] de Phone Number [facility] [place] [address] * Magnesium (11/21/2024 10:49 PM CDT) Magnesium 1.8 1.4 - 2.5 mg/dL Blood 11/21/2024 10:4 9 PM CDT 11/22/2024 12:32 AM CDT eLe Elena MD LAB BLOOD ORDERABLES Krystyna l Result Performing Organization Address [facility] de Phone Number [facility] [place] [address] * (ABNORMAL) Hepatic function panel (11/21/2024 10:49 PM CDT) Bilirubin, total 0.4 0.1 - 1.2 mg/dL Bilirubin, direct 0.3 0.1 - 0.3 mg/dL [facility] Protein, pl 6.2(L) 6.5 - 8.5 g/dL [facility] Albumin 2.4(L) 3.5 - 5.0 g/dL [facility] Alk phos 173(H) 40 - 130 Units/L [facility] ALT 12 7 - 45 Units/L [facility] AST 41 10 - 45 Units/L [facility] Blood 11/21/2024 10:4 9 PM CDT 11/22/2024 12:32 AM CDT Lee Elena MD LAB BLOOD ORDERABLES Krystyna l Result Performing Organization Address [facility]/ZIP Co de Phone Number [facility] Department [place] [address] * (ABNORMAL) Basic metabolic panel (11/21/2024 10:49 PM CDT) Pathologist [facility] Sodium 141 135 - 145 mmol/L Potassium, pl 3.9 3.3 - 4.9 mmol/L [facility] Chloride 100 97 - 110 mmol/L [facility] CO2 31 22 - 32 mmol/L [facility] Anion gap 10 2 - 15 mmol/L [facility] BUN 16 6 - 25 mg/dL [facility] Creatinine 0.39(L) 0.60 - 1.10 mg/dL [facility] Glucose 96 70 - 199 mg/dL [facility] Comment: Interpretive Data Fasting glucose [...] 2022. Calcium 9.1 8.5 - 10.3 mg/dL [facility] Blood 11/21/2024 10:4 9 PM CDT 11/22/2024 12:32 AM CDT Lee Elena MD LAB BLOOD ORDERABLES Krystyna l Result Performing Organization Address [facility]/State/ZIP Co de Phone Number [facility] Department [place] [address] * Potassium, whole blood (11/20/2024 10:45 PM CDT) Potassium, bld 4.0 3.3 - 4.9 mmol/L Blood 11/20/2024 10:4 5 PM CDT 11/20/2024 10:51 PM CDT us Martita Hussein MD LAB BLOOD ORDERABLE S Final Result Performing Organization Address [facility] Co de Phone Number SHONA [facility] [place] [address] * eGFR (11/20/2024 7:07 PM CDT) Pathologist [facility] eGFR >90 >=60 mL/min/1. 73 m2 Comment: [...] LAB BLOOD ORDERABLES Krystyna l Result [facility] Department [place] [address] * Differential, auto (11/20/2024 7:07 PM CDT) Neutrophil abs 3.09 1.50 - 6.50 K/cumm Imm gran abs 0.09 0.00 - 0.10 K/cumm [facility] Lymphocyte abs 3.30 0.80 - 3.30 K/cumm [facility] Monocyte abs 0.65 0.20 - 0.80 K/cumm [facility] Eosinophil abs 0.15 0.00 - 0.50 K/cumm [facility] Basophil abs 0.09 0.00 - 0.10 K/cumm [facility] Neutrophil pct 42.0 % [facility] Comment: Interpretive Data Percent cell count reference ranges are not reported, since discordance with absolute values may lead to misinterpretation of CBC data. Current Interpretive Data was last revised on 2017. Imm gran pct 1.2 % [facility] Comment: Interpretive Data Percent cell count reference ranges are not reported, since discordance with absolute values may lead to misinterpretation of CBC data. Current Interpretive Data was last revised on 2017. Lymphocyte pct 44.8 % [facility] Comment: Interpretive Data Percent cell count reference ranges are not reported, since discordance with absolute values may lead to misinterpretation of CBC data. Current Interpretive Data was last revised on 2017. Monocyte pct 8.8 % [facility] Comment: Interpretive Data Percent cell count reference ranges are not reported, since discordance with absolute values may lead to misinterpretation of CBC data. Current Interpretive Data was last revised on 2017. Eosinophil pct 2.0 % [facility] Comment: Interpretive Data Percent cell count reference ranges are not reported, since discordance with absolute values may lead to misinterpretation of CBC data. Current Interpretive Data was last revised on 2017. Basophil pct 1.2 % [facility] Comment: Interpretive Data Percent cell count reference ranges are not reported, since discordance with absolute values may lead to misinterpretation of CBC data. Current Interpretive Data was last revised on 2017. Blood 11/20/2024 7:07 PM CDT 11/20/2024 7:32 PM CDT Lee Elena MD LAB BLOOD ORDERABLES Krystyna meyers Result Performing Organization Address [facility] Co de Phone Number [facility] Department [place] [address] * (ABNORMAL) CBC with auto differential (11/20/2024 7:07 PM CDT) Pathologist [facility] WBC 7.37 3.80 - 9.90 K/cumm Hgb 10.1(L) 11.9 - 15.5 g/dL [facility] Hct 31.3(L) 35.6 - 45.5 % [facility] Plt 651(H) 150 - 400 K/cumm [facility] MPV 9.4 9.1 - 12.3 fL [facility] RBC 3.07(L) 3.90 - 5.20 M/cumm [facility] MCV 102.0(H) 81.3 - 96.4 fL [facility] MCH 32.9 27.1 - 33.3 pg [facility] MCHC 32.3 32.3 - 35.7 g/dL [facility] RDW CV 20.5(H) 11.1 - 14.9 % [facility] RDW SD 76.1(H) 35.7 - 48.1 fL [facility] NRBC abs 0.00 0.00 - 0.01 K/cumm [facility] Blood 11/20/2024 7:07 PM CDT 11/20/2024 7:32 PM CDT Lee Elena MD LAB BLOOD ORDERABLES Krystyna meyers Result Performing Organization Address [facility]/ZIP Co de Phone Number [facility] [place] [address] * (ABNORMAL) aPTT (11/20/2024 7:07 PM CDT) aPTT 52(H) 28 - 38 sec Comment: Interpretive Data Heparin therapeutic range: 66.0 - 100.0 seconds. Range based on correlation with therapeutic heparin activity range of 0.3 - 0.7 Units/mL. Current interpretive data was last revised on 2023. Blood 11/20/2024 7:07 PM CDT 11/20/2024 7:38 PM CDT Narrative [facility] - 11/20/2024 7:48 PM CDT Baseline prior to enoxaparin initiation. Alex Wynn MD LAB BLOOD ORDERABLES Final Resu lt Performing Organization Address [facility] Co de Phone Number [facility] [place] [address] * Protime-INR (11/20/2024 7:07 PM CDT) Pathologist [facility] PT 11.1 9.7 - 13.0 sec INR 1.03 0.90 - 1.20 [facility] Comment: Interpretive data Oral anticoagulant therapeutic ranges: Venous thromboembolism prophylaxis or treatment: 2.0-3.0 CARDIOLOGY Standard range: 2.0-3.0 High-intensity range: 2.5-3.5 Refer to indication-specific guidelines for appropriate target ranges for prosthetic heart valve replacement. Current interpretive data was last revised on 2019. Blood 11/20/2024 7:07 PM CDT 11/20/2024 7:34 PM CDT us Lee Elena MD LAB BLOOD ORDERABLES Krystyna l Result Performing Organization Address City/[facility]/ZIP Co de Phone Number [facility] [place] [address] * (ABNORMAL) Phosphorus (11/20/2024 7:07 PM CDT) Phosphorus, pl 5.4(H) 2.3 - 4.5 mg/dL Blood 11/20/2024 7:07 PM CDT 11/20/2024 7:32 PM CDT Lee Elena MD LAB BLOOD ORDERABLES Krystyna l Result Performing Organization Address [facility] Co de Phone Number [facility] [place] [address] * Magnesium (11/20/2024 7:07 PM CDT) Pathologist [facility] Magnesium 1.7 1.4 - 2.5 mg/dL Blood 11/20/2024 7:07 PM CDT 11/20/2024 7:32 PM CDT Lee Elena MD LAB BLOOD ORDERABLES Krystyna l Result Performing Organization Address [facility] de Phone Number [facility] Department [place] [address] * (ABNORMAL) Hepatic function panel (11/20/2024 7:07 PM CDT) Pathologist [facility] Bilirubin, total 0.4 0.1 - 1.2 mg/dL Bilirubin, direct 0.2 0.1 - 0.3 mg/dL [facility] Comment:Hemolyzed; result ma y be falsely decreased Protein, pl 6.3(L) 6.5 - 8.5 g/dL [facility] Albumin 2.6(L) 3.5 - 5.0 g/dL [facility] Alk phos 193(H) 40 - 130 Units/L [facility] ALT 12 7 - 45 Units/L [facility] AST 55(H) 10 - 45 Units/L [facility] Comment:Hemolyzed; result ma y be falsely elevated Blood 11/20/2024 7:07 PM CDT 11/20/2024 7:32 PM CDT Lee Elena MD LAB BLOOD ORDERABLES Krystyna l Result Performing Organization Address City/[facility] Co de Phone Number [facility] Department [place] [address] * Basic metabolic panel (11/20/2024 7:07 PM CDT) [facility] Sodium 142 135 - 145 mmol/L Potassium, pl 4.3 3.3 - 4.9 mmol/L [facility] Comment:Hemolyzed; Potassium value may be falsely elevated by as much as 0.3-0.5 mmol/L. Suggest redraw and reanalysis. Chloride 103 97 - 110 mmol/L [facility] CO2 27 22 - 32 mmol/L [facility] Anion gap 12 2 - 15 mmol/L [facility] BUN 16 6 - 25 mg/dL [facility] Creatinine 0.66 0.60 - 1.10 mg/dL [facility] Glucose 95 70 - 199 mg/dL [facility] Comment: Interpretive Data Fasting glucose [...] 2022. Calcium 9.0 8.5 - 10.3 mg/dL [facility] Blood 11/20/2024 7:07 PM CDT 11/20/2024 7:32 PM CDT us Lee Elena MD LAB BLOOD ORDERABLES Krystyna meyers Result [facility] Department [place] [address] * ECG 12 lead (11/20/2024 1:20 PM CDT) [facility] Ventricular Rate EKG/Min 78 BPM [facility] Atrial Rate 78 BPM [facility] NE-Interval (MSEC) 126 ms [facility] QRS-Interval (MSEC) 68 ms [facility] QT-Interval (MSEC) 448 ms [facility] QTc 510 ms [facility] P [place] 22 degrees [facility] R [place] 55 degrees [facility] T [place] 124 degrees [facility] Diagnosis Normal sinus rhythm T wave abnormality, consider lateral ischemia Prolonged QT Abnormal ECG When compared with ECG of 18-NOV-2024 13:40, (unconfirmed) Nonspecific T wave abnormality no longer evident in Inferior leads T wave inversion less evident in Lateral leads Confirmed by SHALINI RODRIGUEZ M.D ([id number]) on 11/21/2024 9:46:31 AM [facility] 11/20/2024 1:20 PM CDT 11/21/2024 9:46 AM CDT us Lee Elena MD ECG ORDERABLES Final Res ult [facility] * Genomics Specimen Tracking Order Blood (11/20/2024 10:37 AM CDT) Pathologist [facility] Genomics Tracking Order Received Blood 11/20/2024 10:3 7 AM CDT 11/20/2024 11:49 AM CDT Narrative [facility] - 11/29/2024 1:58 PM CDT Please read the [employer] [facility] requisition for specimen collection requirements. us Akash Sharma MD LAB BODY FLUIDS AND STOOLS ORDERABLES Final Result [facility] [place] [address] * Genomics ([facility]) (11/20/2024 12:00 AM CDT) Blood (Peripheral Blood For Pathologist Review) 11/20/2024 11/20/2024 Narrative [facility] - 12/19/2024 12:31 PM CDT REPORT IMAGES AND/OR SCANNED DOCUMENTS ONLY VIEWABLE IN PDF FORMAT us Akash Sharma MD LAB GENETIC TEST ING Edited Result - Final [facility] [address] [place] [address] * eGFR (11/19/2024 8:20 PM CDT) eGFR [...] MD LAB BLOOD ORDERABLES Krystyna l Result [facility] Department [place] [address] * Differential, auto (11/19/2024 8:20 PM CDT) Pathologist [facility] Neutrophil abs 3.74 1.50 - 6.50 K/cumm Imm gran abs 0.06 0.00 - 0.10 K/cumm [facility] Lymphocyte abs 2.61 0.80 - 3.30 K/cumm [facility] Monocyte abs 0.72 0.20 - 0.80 K/cumm [facility] Eosinophil abs 0.09 0.00 - 0.50 K/cumm [facility] Basophil abs 0.08 0.00 - 0.10 K/cumm [facility] Neutrophil pct 51.2 % [facility] Comment: Interpretive Data Percent cell count reference ranges are not reported, since discordance with absolute values may lead to misinterpretation of CBC data. Current Interpretive Data was last revised on 2017. Imm gran pct 0.8 % [facility] Comment: Interpretive Data Percent cell count reference ranges are not reported, since discordance with absolute values may lead to misinterpretation of CBC data. Current Interpretive Data was last revised on 2017. Lymphocyte pct 35.8 % [facility] Comment: Interpretive Data Percent cell count reference ranges are not reported, since discordance with absolute values may lead to misinterpretation of CBC data. Current Interpretive Data was last revised on 2017. Monocyte pct 9.9 % [facility] Comment: Interpretive Data Percent cell count reference ranges are not reported, since discordance with absolute values may lead to misinterpretation of CBC data. Current Interpretive Data was last revised on 2017. Eosinophil pct 1.2 % [facility] Comment: Interpretive Data Percent cell count reference ranges are not reported, since discordance with absolute values may lead to misinterpretation of CBC data. Current Interpretive Data was last revised on 2017. Basophil pct 1.1 % [facility] Comment: Interpretive Data Percent cell count reference ranges are not reported, since discordance with absolute values may lead to misinterpretation of CBC data. Current Interpretive Data was last revised on 2017. Blood 11/19/2024 8:20 PM CDT 11/19/2024 9:33 PM CDT us Lee Elena MD LAB BLOOD ORDERABLES Krystyna meeyrs Result [facility] Department [place] [address] * (ABNORMAL) CBC with auto differential (11/19/2024 8:20 PM CDT) WBC 7.30 3.80 - 9.90 K/cumm Hgb 9.1(L) 11.9 - 15.5 g/dL [facility] Hct 27.7(L) 35.6 - 45.5 % [facility] Plt 627(H) 150 - 400 K/cumm [facility] MPV 9.9 9.1 - 12.3 fL [facility] RBC 2.75(L) 3.90 - 5.20 M/cumm [facility] MCV 100.7(H) 81.3 - 96.4 fL [facility] MCH 33.1 27.1 - 33.3 pg [facility] MCHC 32.9 32.3 - 35.7 g/dL [facility] RDW CV 20.7(H) 11.1 - 14.9 % [facility] RDW SD 75.5(H) 35.7 - 48.1 fL [facility] NRBC abs 0.00 0.00 - 0.01 K/cumm [facility] Blood 11/19/2024 8:20 PM CDT 11/19/2024 9:33 PM CDT us Lee Elena MD LAB BLOOD ORDERABLES Krystyna meyers Result [facility] Department [place] [address] * Protime-INR (11/19/2024 8:20 PM CDT) Pathologist [facility] PT 10.6 9.7 - 13.0 sec INR 0.98 0.90 - 1.20 [facility] Comment: Interpretive data Oral anticoagulant [...] ORDERABLES Krystyna l Result Performing Organization Address [facility] de Phone Number [facility] [place] [address] * Phosphorus (11/19/2024 8:20 PM CDT) Pathologist [facility] Phosphorus, pl 4.2 2.3 - 4.5 mg/dL Blood 11/19/2024 8:20 PM CDT 11/19/2024 9:32 PM CDT Lee Elena MD LAB BLOOD ORDERABLES Krystyna l Result Performing Organization Address [facility] de Phone Number [facility] [place] [address] * Magnesium (11/19/2024 8:20 PM CDT) Pathologist [facility] Magnesium 2.0 1.4 - 2.5 mg/dL Blood 11/19/2024 8:20 PM CDT 11/19/2024 9:32 PM CDT Lee Elena MD LAB BLOOD ORDERABLES Krystyna l Result Performing Organization Address [facility] [place] [address] * (ABNORMAL) Hepatic function panel (11/19/2024 8:20 PM CDT) Bilirubin, total 0.4 0.1 - 1.2 mg/dL Bilirubin, direct 0.3 0.1 - 0.3 mg/dL [facility] Protein, pl 5.7(L) 6.5 - 8.5 g/dL [facility] Albumin 2.2(L) 3.5 - 5.0 g/dL [facility] Alk phos 189(H) 40 - 130 Units/L [facility] ALT 12 7 - 45 Units/L [facility] AST 49(H) 10 - 45 Units/L [facility] Blood 11/19/2024 8:20 PM CDT 11/19/2024 9:32 PM CDT Lee Elena MD LAB BLOOD ORDERABLES Krystyna l Result [facility] Department [place] [address] * (ABNORMAL) Basic metabolic panel (11/19/2024 8:20 PM CDT) Sodium 138 135 - 145 mmol/L Potassium, pl 4.2 3.3 - 4.9 mmol/L [facility] Chloride 103 97 - 110 mmol/L [facility] CO2 28 22 - 32 mmol/L [facility] Anion gap 7 2 - 15 mmol/L [facility] BUN 15 6 - 25 mg/dL [facility] Creatinine 0.40(L) 0.60 - 1.10 mg/dL [facility] Glucose 93 70 - 199 mg/dL [facility] Comment: Interpretive Data Fasting glucose [...] 2022. Calcium 8.4(L) 8.5 - 10.3 mg/dL [facility] Blood 11/19/2024 8:20 PM CDT 11/19/2024 9:32 PM CDT us Lee Elena MD LAB BLOOD ORDERABLES Krystyna l Result [facility] Department [place] [address] * POCT glucose (11/19/2024 7:53 AM CDT) Pathologist [facility] Glucose, POC 112 70 - 199 mg/dL Blood 11/19/2024 7:53 AM CDT 11/19/2024 7:53 AM CDT Alex Wynn MD LAB POCT ORDERABLES - DEVICE Fi nal Result Performing Organization Address [facility] Co de Phone Number [facility] Department [place] [address] * (ABNORMAL) Differential, auto (11/18/2024 9:53 PM CDT) [facility] Neutrophil abs 5.36 1.50 - 6.50 K/cumm Imm gran abs 0.06 0.00 - 0.10 K/cumm [facility] Lymphocyte abs 2.35 0.80 - 3.30 K/cumm [facility] Monocyte abs 0.81(H) 0.20 - 0.80 K/cumm [facility] Eosinophil abs 0.17 0.00 - 0.50 K/cumm [facility] Basophil abs 0.07 0.00 - 0.10 K/cumm [facility] Neutrophil pct 60.8 % [facility] Comment: Interpretive Data Percent cell count reference ranges are not reported, since discordance with absolute values may lead to misinterpretation of CBC data. Current Interpretive Data was last revised on 2017. Imm gran pct 0.7 % [facility] Comment: Interpretive Data Percent cell count reference ranges are not reported, since discordance with absolute values may lead to misinterpretation of CBC data. Current Interpretive Data was last revised on 2017. Lymphocyte pct 26.6 % [facility] Comment: Interpretive Data Percent cell count reference ranges are not reported, since discordance with absolute values may lead to misinterpretation of CBC data. Current Interpretive Data was last revised on 2017. Monocyte pct 9.2 % [facility] Comment: Interpretive Data Percent cell count reference ranges are not reported, since discordance with absolute values may lead to misinterpretation of CBC data. Current Interpretive Data was last revised on 2017. Eosinophil pct 1.9 % [facility] Comment: Interpretive Data Percent cell count reference ranges are not reported, since discordance with absolute values may lead to misinterpretation of CBC data. Current Interpretive Data was last revised on 2017. Basophil pct 0.8 % [facility] Comment: Interpretive Data Percent cell count reference ranges are not reported, since discordance with absolute values may lead to misinterpretation of CBC data. Current Interpretive Data was last revised on 2017. Blood 11/18/2024 9:53 PM CDT 11/18/2024 11:34 PM CDT Lee Elena MD LAB BLOOD ORDERABLES Krystyna meyers Result [facility] Department [place] [address] * (ABNORMAL) CBC with auto differential (11/18/2024 9:53 PM CDT) WBC 8.82 3.80 - 9.90 K/cumm Hgb 9.2(L) 11.9 - 15.5 g/dL [facility] Hct 27.9(L) 35.6 - 45.5 % [facility] Plt 649(H) 150 - 400 K/cumm [facility] MPV 9.9 9.1 - 12.3 fL [facility] RBC 2.79(L) 3.90 - 5.20 M/cumm [facility] MCV 100.0(H) 81.3 - 96.4 fL [facility] MCH 33.0 27.1 - 33.3 pg [facility] MCHC 33.0 32.3 - 35.7 g/dL [facility] RDW CV 20.7(H) 11.1 - 14.9 % [facility] RDW SD 74.5(H) 35.7 - 48.1 fL [facility] NRBC abs 0.00 0.00 - 0.01 K/cumm [facility] Blood 11/18/2024 9:53 PM CDT 11/18/2024 11:34 PM CDT Lee Elena MD LAB BLOOD ORDERABLES Krystyna meyers Result [facility] Department [place] [address] * Blood culture Blood (11/18/2024 9:53 PM CDT) Report Final Report: No growth Blood 11/18/2024 9:53 PM CDT 11/19/2024 1:12 AM CDT Narrative [facility] - 11/23/2024 7:00 AM CDT [...] performance characteristics have been verified by the [facility] Microbiology Laboratory. For questions about this culture, contact the Microbiology Laboratory at [phone]. Interpretive data was last revised on 24. Lee Elena MD LAB MICROBIOLOGY - GENERA L ORDERABLES Final Result Performing Organization Address [facility] Co de Phone Number [facility] [place] [address] * Protime-INR (11/18/2024 9:53 PM CDT) PT 10.8 9.7 - 13.0 sec INR 1.00 0.90 - 1.20 [facility] Comment: Interpretive data Oral anticoagulant [...] ORDERABLES Krystyna l Result Performing Organization Address [facility] Co de Phone Number [facility] Department [place] [address] * eGFR (11/18/2024 3:57 PM CDT) eGFR [...] PM CDT 11/18/2024 4:11 PM CDT Lee Elean MD LAB BLOOD ORDERABLES Krystyna l Result Performing Organization Address City/[facility] Co de Phone Number [facility] [place] [address] * (ABNORMAL) Phosphorus (11/18/2024 3:57 PM CDT) Phosphorus, pl 4.8(H) 2.3 - 4.5 mg/dL Blood 11/18/2024 3:57 PM CDT 11/18/2024 4:11 PM CDT Lee Elena MD LAB BLOOD ORDERABLES Krystyna l Result Performing Organization Address [facility] [place] [address] * Magnesium (11/18/2024 3:57 PM CDT) Magnesium 1.6 1.4 - 2.5 mg/dL Blood 11/18/2024 3:57 PM CDT 11/18/2024 4:11 PM CDT Lee Elena MD LAB BLOOD ORDERABLES Krystyna l Result Performing Organization Address [facility] Co de Phone Number [facility] [place] [address] * (ABNORMAL) Hepatic function panel (11/18/2024 3:57 PM CDT) Bilirubin, total 0.5 0.1 - 1.2 mg/dL Bilirubin, direct 0.4(H) 0.1 - 0.3 mg/dL [facility] Protein, pl 5.8(L) 6.5 - 8.5 g/dL [facility] Albumin 2.5(L) 3.5 - 5.0 g/dL [facility] Alk phos 207(H) 40 - 130 Units/L [facility] ALT 10 7 - 45 Units/L [facility] AST 43 10 - 45 Units/L [facility] Blood 11/18/2024 3:57 PM CDT 11/18/2024 4:11 PM CDT us Lee Elena MD LAB BLOOD ORDERABLES Krystyna meyers Result [facility] Department [place] [address] * (ABNORMAL) Basic metabolic panel (11/18/2024 3:57 PM CDT) [facility] Sodium 140 135 - 145 mmol/L Potassium, pl 4.2 3.3 - 4.9 mmol/L [facility] Chloride 102 97 - 110 mmol/L [facility] CO2 29 22 - 32 mmol/L [facility] Anion gap 9 2 - 15 mmol/L [facility] BUN 13 6 - 25 mg/dL [facility] Creatinine 0.44(L) 0.60 - 1.10 mg/dL [facility] Glucose 92 70 - 199 mg/dL [facility] Comment: Interpretive Data Fasting glucose [...] 2022. Calcium 8.4(L) 8.5 - 10.3 mg/dL [facility] Blood 11/18/2024 3:57 PM CDT 11/18/2024 4:11 PM CDT Lee Elena MD LAB BLOOD ORDERABLES Krystyna l Result Performing Organization Address [facility]/ZIP Co de Phone Number [facility] Department [place] [address] * ECG 12 lead (11/18/2024 1:40 PM CDT) Ventricular Rate EKG/Min 86 BPM [facility] Atrial Rate 86 BPM [facility] NE-Interval (MSEC) 104 ms [facility] QRS-Interval (MSEC) 74 ms [facility] QT-Interval (MSEC) 422 ms [facility] QTc 504 ms [facility] P [place] 28 degrees [facility] R [place] 78 degrees [facility] T [place] 159 degrees [facility] Diagnosis Sinus rhythm with short NE T wave abnormality, consider lateral ischemia Prolonged QT Abnormal ECG When compared with ECG of 16-NOV-2024 07:09, Nonspecific T wave abnormality no longer evident in Anterior leads Inverted T waves have replaced nonspecific T wave abnormality in Lateral leads Confirmed by SHALINI RODRIGUEZ M.D ([id number]) on 11/20/2024 4:17:45 PM [facility] 11/18/2024 1:40 PM CDT 11/20/2024 4:17 PM CDT Lee Elena MD ECG ORDERABLES Final Res ult Performing Organization Address City/[facility]/ZIP Co de Phone Number [facility] * POCT glucose (11/18/2024 12:02 AM CDT) Glucose, POC 104 70 - 199 mg/dL Blood 11/18/2024 12:0 2 AM CDT 11/18/2024 12:02 AM CDT Lee Elena MD LAB POCT ORDERABLES - DEV ICE Final Result Performing Organization Address City/[facility]/ZIP Co de Phone Number [facility] Department [place] [address] * eGFR (11/17/2024 10:42 PM CDT) Pathologist [facility] eGFR >90 >=60 mL/min/1. 73 m2 Comment: [...] ORDERABLES Krystyna l Result Performing Organization Address City/[facility]/ZIP Co de Phone Number [facility] [place] [address] * Differential, auto (11/17/2024 10:42 PM CDT) Pathologist [facility] Neutrophil abs 4.62 1.50 - 6.50 K/cumm Imm gran abs 0.08 0.00 - 0.10 K/cumm [facility] Lymphocyte abs 2.27 0.80 - 3.30 K/cumm [facility] Monocyte abs 0.73 0.20 - 0.80 K/cumm [facility] Eosinophil abs 0.13 0.00 - 0.50 K/cumm [facility] Basophil abs 0.08 0.00 - 0.10 K/cumm [facility] Neutrophil pct 58.5 % [facility] Comment: Interpretive Data Percent cell count reference ranges are not reported, since discordance with absolute values may lead to misinterpretation of CBC data. Current Interpretive Data was last revised on 2017. Imm gran pct 1.0 % [facility] Comment: Interpretive Data Percent cell count reference ranges are not reported, since discordance with absolute values may lead to misinterpretation of CBC data. Current Interpretive Data was last revised on 2017. Lymphocyte pct 28.7 % [facility] Comment: Interpretive Data Percent cell count reference ranges are not reported, since discordance with absolute values may lead to misinterpretation of CBC data. Current Interpretive Data was last revised on 2017. Monocyte pct 9.2 % [facility] Comment: Interpretive Data Percent cell count reference ranges are not reported, since discordance with absolute values may lead to misinterpretation of CBC data. Current Interpretive Data was last revised on 2017. Eosinophil pct 1.6 % [facility] Comment: Interpretive Data Percent cell count reference ranges are not reported, since discordance with absolute values may lead to misinterpretation of CBC data. Current Interpretive Data was last revised on 2017. Basophil pct 1.0 % [facility] Comment: Interpretive Data Percent cell count reference ranges are not reported, since discordance with absolute values may lead to misinterpretation of CBC data. Current Interpretive Data was last revised on 2017. Blood 11/17/2024 10:4 2 PM CDT 11/17/2024 11:26 PM CDT us Lee Elena MD LAB BLOOD ORDERABLES Krystyna meyers Result [facility] [place] [address] * (ABNORMAL) CBC with auto differential (11/17/2024 10:42 PM CDT) WBC 7.91 3.80 - 9.90 K/cumm Hgb 9.2(L) 11.9 - 15.5 g/dL [facility] Hct 27.9(L) 35.6 - 45.5 % [facility] Plt 666(H) 150 - 400 K/cumm [facility] MPV 10.0 9.1 - 12.3 fL [facility] RBC 2.81(L) 3.90 - 5.20 M/cumm [facility] MCV 99.3(H) 81.3 - 96.4 fL [facility] MCH 32.7 27.1 - 33.3 pg [facility] MCHC 33.0 32.3 - 35.7 g/dL [facility] RDW CV 21.2(H) 11.1 - 14.9 % [facility] RDW SD 75.9(H) 35.7 - 48.1 fL [facility] NRBC abs 0.00 0.00 - 0.01 K/cumm [facility] Blood 11/17/2024 10:4 2 PM CDT 11/17/2024 11:26 PM CDT us Lee Elena MD LAB BLOOD ORDERABLES Krystyna meyers Result [facility] Department [place] [address] * Blood culture Blood (11/17/2024 10:42 PM CDT) Report Final Report: No growth Blood 11/17/2024 10:4 2 PM CDT 11/17/2024 11:21 PM CDT Narrative [facility] - 11/22/2024 7:00 AM CDT [...] performance characteristics have been verified by the [facility] Microbiology Laboratory. For questions about this culture, contact the Microbiology Laboratory at [phone]. Interpretive data was last revised on 24. Lee Elena MD LAB MICROBIOLOGY - GENERA L ORDERABLES Final Result Performing Organization Address [facility] Co de Phone Number [facility] [place] [address] * Protime-INR (11/17/2024 10:42 PM CDT) PT 12.0 9.7 - 13.0 sec INR 1.11 0.90 - 1.20 [facility] Comment: Interpretive data Oral anticoagulant [...] ORDERABLES Krystyna l Result Performing Organization Address City/[facility] Co de Phone Number [facility] [place] [address] * Phosphorus (11/17/2024 10:42 PM CDT) [facility] Phosphorus, pl 3.7 2.3 - 4.5 mg/dL Blood 11/17/2024 10:4 2 PM CDT 11/17/2024 11:26 PM CDT Lee Elena MD LAB BLOOD ORDERABLES Krystyna l Result [facility] [place] [place] [address] * Magnesium (11/17/2024 10:42 PM CDT) [facility] Magnesium 1.8 1.4 - 2.5 mg/dL Blood 11/17/2024 10:4 2 PM CDT 11/17/2024 11:26 PM CDT Lee Elena MD LAB BLOOD ORDERABLES Krystyna l Result Performing Organization Address [facility] de Phone Number [facility] [place] [address] * (ABNORMAL) Hepatic function panel (11/17/2024 10:42 PM CDT) [facility] Bilirubin, total 0.5 0.1 - 1.2 mg/dL Bilirubin, direct 0.4(H) 0.1 - 0.3 mg/dL [facility] Protein, pl 5.4(L) 6.5 - 8.5 g/dL [facility] Albumin 2.2(L) 3.5 - 5.0 g/dL [facility] Alk phos 186(H) 40 - 130 Units/L [facility] ALT 11 7 - 45 Units/L [facility] AST 44 10 - 45 Units/L [facility] Blood 11/17/2024 10:4 2 PM CDT 11/17/2024 11:26 PM CDT Lee Elena MD LAB BLOOD ORDERABLES Krystyna l Result [facility] Department [place] [address] * (ABNORMAL) Basic metabolic panel (11/17/2024 10:42 PM CDT) Sodium 139 135 - 145 mmol/L Potassium, pl 4.2 3.3 - 4.9 mmol/L [facility] Chloride 106 97 - 110 mmol/L [facility] CO2 28 22 - 32 mmol/L [facility] Anion gap 5 2 - 15 mmol/L [facility] BUN 10 6 - 25 mg/dL [facility] Creatinine 0.43(L) 0.60 - 1.10 mg/dL [facility] Glucose 99 70 - 199 mg/dL [facility] Comment: Interpretive Data Fasting glucose [...] 2022. Calcium 8.4(L) 8.5 - 10.3 mg/dL [facility] Blood 11/17/2024 10:4 2 PM CDT 11/17/2024 11:26 PM CDT us Lee Elena MD LAB BLOOD ORDERABLES Krystyna l Result [facility] Department [place] [address] * POCT glucose (11/17/2024 7:38 PM CDT) Glucose, POC 101 70 - 199 mg/dL Blood 11/17/2024 7:38 PM CDT 11/17/2024 7:38 PM CDT Lee Elena MD LAB POCT ORDERABLES - DEV ICE Final Result Performing Organization Address [facility] de Phone Number [facility] [place] [address] * POCT glucose (11/17/2024 3:39 PM CDT) Glucose, POC 95 70 - 199 mg/dL Blood 11/17/2024 3:39 PM CDT 11/17/2024 3:39 PM CDT us Lee Elena MD LAB POCT ORDERABLES - DEV ICE Final Result Performing Organization Address [facility] de Phone Number [facility] [place] [address] * POCT glucose (11/17/2024 11:25 AM CDT) Glucose, POC 99 70 - 199 mg/dL Blood 11/17/2024 11:2 5 AM CDT 11/17/2024 11:25 AM CDT Lee Elena MD LAB POCT ORDERABLES - DEV ICE Final Result Performing Organization Address [facility] de Phone Number [facility] [place] [address] * POCT glucose (11/17/2024 7:43 AM CDT) Glucose, POC 108 70 - 199 mg/dL Blood 11/17/2024 7:43 AM CDT 11/17/2024 7:43 AM CDT Lee Elena MD LAB POCT ORDERABLES - DEV ICE Final Result Performing Organization Address [facility]/ZIP Co de Phone Number [facility] Department [place] [address] * POCT glucose (11/17/2024 5:04 AM CDT) Glucose, POC 110 70 - 199 mg/dL Blood 11/17/2024 5:04 AM CDT 11/17/2024 5:04 AM CDT Lee Elena MD LAB POCT ORDERABLES - DEV ICE Final Result Performing Organization Address [facility] Co de Phone Number [facility] [place] [address] * POCT glucose (11/17/2024 12:06 AM CDT) [facility] Glucose, POC 102 70 - 199 mg/dL Blood 11/17/2024 12:0 6 AM CDT 11/17/2024 12:06 AM CDT Lee Elena MD LAB POCT ORDERABLES - DEV ICE Final Result Performing Organization Address [facility] de Phone Number [facility] [place] [address] * eGFR (11/16/2024 9:38 PM CDT) [facility] eGFR >90 >=60 mL/min/1. 73 m2 Comment: [...] MD LAB BLOOD ORDERABLES Krystyna meyers Result [facility] Department [place] [address] * (ABNORMAL) Differential, auto (11/16/2024 9:38 PM CDT) Neutrophil abs 9.72(H) 1.50 - 6.50 K/cumm Imm gran abs 0.14(H) 0.00 - 0.10 K/cumm [facility] Lymphocyte abs 1.26 0.80 - 3.30 K/cumm [facility] Monocyte abs 0.53 0.20 - 0.80 K/cumm [facility] Eosinophil abs 0.06 0.00 - 0.50 K/cumm [facility] Basophil abs 0.08 0.00 - 0.10 K/cumm [facility] Neutrophil pct 82.4 % [facility] Comment: Interpretive Data Percent cell count reference ranges are not reported, since discordance with absolute values may lead to misinterpretation of CBC data. Current Interpretive Data was last revised on 2017. Imm gran pct 1.2 % [facility] Comment: Interpretive Data Percent cell count reference ranges are not reported, since discordance with absolute values may lead to misinterpretation of CBC data. Current Interpretive Data was last revised on 2017. Lymphocyte pct 10.7 % [facility] Comment: Interpretive Data Percent cell count reference ranges are not reported, since discordance with absolute values may lead to misinterpretation of CBC data. Current Interpretive Data was last revised on 2017. Monocyte pct 4.5 % [facility] Comment: Interpretive Data Percent cell count reference ranges are not reported, since discordance with absolute values may lead to misinterpretation of CBC data. Current Interpretive Data was last revised on 2017. Eosinophil pct 0.5 % [facility] Comment: Interpretive Data Percent cell count reference ranges are not reported, since discordance with absolute values may lead to misinterpretation of CBC data. Current Interpretive Data was last revised on 2017. Basophil pct 0.7 % [facility] Comment: Interpretive Data Percent cell count reference ranges are not reported, since discordance with absolute values may lead to misinterpretation of CBC data. Current Interpretive Data was last revised on 2017. Blood 11/16/2024 9:38 PM CDT 11/16/2024 10:38 PM CDT us Lee Elena MD LAB BLOOD ORDERABLES Krystyna meyers Result [facility] Department [place] [address] * (ABNORMAL) CBC with auto differential (11/16/2024 9:38 PM CDT) WBC 11.79(H) 3.80 - 9.90 K/cumm Hgb 10.1(L) 11.9 - 15.5 g/dL [facility] Hct 30.2(L) 35.6 - 45.5 % [facility] Plt 718(H) 150 - 400 K/cumm [facility] MPV 10.5 9.1 - 12.3 fL [facility] RBC 3.12(L) 3.90 - 5.20 M/cumm [facility] MCV 96.8(H) 81.3 - 96.4 fL [facility] MCH 32.4 27.1 - 33.3 pg [facility] MCHC 33.4 32.3 - 35.7 g/dL [facility] RDW CV 21.5(H) 11.1 - 14.9 % [facility] RDW SD 73.1(H) 35.7 - 48.1 fL [facility] NRBC abs 0.00 0.00 - 0.01 K/cumm [facility] Blood 11/16/2024 9:38 PM CDT 11/16/2024 10:38 PM CDT Lee Elena MD LAB BLOOD ORDERABLES Krystyna l Result Performing Organization Address [facility]/State/ZIP Co de Phone Number [facility] Department [place] [address] * Blood culture Blood (11/16/2024 9:38 PM CDT) Report Final Report: No growth Blood 11/16/2024 9:38 PM CDT 11/16/2024 10:38 PM CDT Narrative [facility] - 11/21/2024 7:00 AM CDT From [...] performance characteristics have been verified by the [facility] Microbiology Laboratory. For questions about this culture, contact the Microbiology Laboratory at [phone]. Interpretive data was last revised on 24. Lee Elena MD LAB MICROBIOLOGY - GENERA L ORDERABLES Final Result Performing Organization Address [facility] Co de Phone Number [facility] [place] [address] * Protime-INR (11/16/2024 9:38 PM CDT) Pathologist [facility] PT 12.6 9.7 - 13.0 sec INR 1.16 0.90 - 1.20 [facility] Comment: Interpretive data Oral anticoagulant [...] ORDERABLES Krystyna l Result Performing Organization Address [facility] Co de Phone Number [facility] [place] [address] * Phosphorus (11/16/2024 9:38 PM CDT) [facility] Phosphorus, pl 4.1 2.3 - 4.5 mg/dL Blood 11/16/2024 9:38 PM CDT 11/16/2024 10:37 PM CDT Lee Elena MD LAB BLOOD ORDERABLES Krystyna l Result Performing Organization Address [facility] [place] [address] * Magnesium (11/16/2024 9:38 PM CDT) [facility] Magnesium 1.5 1.4 - 2.5 mg/dL Blood 11/16/2024 9:38 PM CDT 11/16/2024 10:37 PM CDT Lee Elena MD LAB BLOOD ORDERABLES Krystyna l Result Performing Organization Address City/[facility]/ZIP Co de Phone Number [facility] Department [place] [address] * (ABNORMAL) Hepatic function panel (11/16/2024 9:38 PM CDT) Pathologist [facility] Bilirubin, total 0.6 0.1 - 1.2 mg/dL Bilirubin, direct 0.4(H) 0.1 - 0.3 mg/dL [facility] Protein, pl 5.7(L) 6.5 - 8.5 g/dL [facility] Albumin 2.0(L) 3.5 - 5.0 g/dL [facility] Alk phos 201(H) 40 - 130 Units/L [facility] ALT 21 7 - 45 Units/L [facility] AST 68(H) 10 - 45 Units/L [facility] Blood 11/16/2024 9:38 PM CDT 11/16/2024 10:37 PM CDT Lee Elena MD LAB BLOOD ORDERABLES Krystyna l Result Performing Organization Address [facility] Co de Phone Number [facility] Department [place] [address] * (ABNORMAL) Basic metabolic panel (11/16/2024 9:38 PM CDT) Pathologist [facility] Sodium 141 135 - 145 mmol/L Potassium, pl 4.2 3.3 - 4.9 mmol/L [facility] Chloride 103 97 - 110 mmol/L [facility] CO2 29 22 - 32 mmol/L [facility] Anion gap 9 2 - 15 mmol/L [facility] BUN 9 6 - 25 mg/dL [facility] Creatinine 0.48(L) 0.60 - 1.10 mg/dL [facility] Glucose 90 70 - 199 mg/dL [facility] Comment: Interpretive Data Fasting glucose [...] 2022. Calcium 8.8 8.5 - 10.3 mg/dL [facility] Blood 11/16/2024 9:38 PM CDT 11/16/2024 10:37 PM CDT us Lee Elena MD LAB BLOOD ORDERABLES Krystyna l Result [facility] Department [place] [address] * Blood culture Blood (11/16/2024 9:28 PM CDT) Report Final Report: No growth Blood 11/16/2024 9:28 PM CDT 11/16/2024 10:38 PM CDT Narrative [facility] - 11/21/2024 7:00 AM CDT Collection->Peripheral [...] performance characteristics have been verified by the [facility] Microbiology Laboratory. For questions about this culture, contact the Microbiology Laboratory at [phone]. Interpretive data was last revised on 24. Lee Elena MD LAB MICROBIOLOGY - GENERA L ORDERABLES Final Result Performing Organization Address City/[facility] Co de Phone Number [facility] [place] [address] * POCT glucose (11/16/2024 8:10 PM CDT) Glucose, POC 124 70 - 199 mg/dL Blood 11/16/2024 8:10 PM CDT 11/16/2024 8:10 PM CDT Lee Elena MD LAB POCT ORDERABLES - DEV ICE Final Result Performing Organization Address [facility] de Phone Number [facility] [place] [address] * POCT glucose (11/16/2024 6:32 PM CDT) Glucose, POC 104 70 - 199 mg/dL Blood 11/16/2024 6:32 PM CDT 11/16/2024 6:32 PM CDT Lee Elena MD LAB POCT ORDERABLES - DEV ICE Final Result Performing Organization Address [facility] [place] [address] * Radiology Event (11/16/2024 5:53 PM CDT) [...] PM I was asked to see HAYLEY Meyers ROMELIA regarding a fall. 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 It was reported that when the [...] [facility] It was reported that when the patient [...] regarding event: yes Electronically signed by: Ochoa Densley, D.O. us Lee Morro Kassy MD IMG CT PROCEDURES Final R esult [...] mapping at the mid: normal less than 9592-0938 ms. T2 mapping at the mid: normal [...] mapping at the mid: normal less than 9078-6981 ms. T2 mapping at the mid: normal [...] by: Thang Castro M.D. Lee Elena MD IMG MRI PROCEDURES Final Result * (ABNORMAL) Hemoglobin and hematocrit (11/16/2024 11:59 AM CDT) [facility] Hgb 10.2(L) 11.9 - 15.5 g/dL Comment:Hemoglobin delta due to apparent blood transfusion. Hct 30.3(L) 35.6 - 45.5 % [facility] Blood 11/16/2024 11:5 9 AM CDT 11/16/2024 12:47 PM CDT Oracio Cody MD LAB BLOOD ORDERABLES Final Result [facility] [place] [address] * eGFR (11/16/2024 11:58 AM CDT) [facility] eGFR >90 >=60 mL/min/1. 73 m2 Comment: [...] LAB BLOOD ORDERABLES Krystyna l Result [facility] Department [place] [address] * Calcium, ionized (11/16/2024 11:58 AM CDT) Calcium, Ionized 4.68 4.50 - 5.10 mg/dL Blood 11/16/2024 11:5 8 AM CDT 11/16/2024 12:39 PM CDT us Lee Elena MD LAB BLOOD ORDERABLES Krystyna l Result [facility] Department [place] [address] * Phosphorus (11/16/2024 11:58 AM CDT) Phosphorus, pl 4.3 2.3 - 4.5 mg/dL Blood 11/16/2024 11:5 8 AM CDT 11/16/2024 12:47 PM CDT Lee Elena MD LAB BLOOD ORDERABLES Krystyna l Result Performing Organization Address City/[facility] Co de Phone Number [facility] Department [place] [address] * Magnesium (11/16/2024 11:58 AM CDT) [facility] Magnesium 1.6 1.4 - 2.5 mg/dL Blood 11/16/2024 11:5 8 AM CDT 11/16/2024 12:47 PM CDT Lee Elena MD LAB BLOOD ORDERABLES Krystyna l Result Performing Organization Address [facility] de Phone Number [facility] [place] [address] * (ABNORMAL) Basic metabolic panel (11/16/2024 11:58 AM CDT) [facility] Sodium 140 135 - 145 mmol/L Potassium, pl 4.2 3.3 - 4.9 mmol/L [facility] Chloride 104 97 - 110 mmol/L [facility] CO2 30 22 - 32 mmol/L [facility] Anion gap 6 2 - 15 mmol/L [facility] BUN 9 6 - 25 mg/dL [facility] Creatinine 0.44(L) 0.60 - 1.10 mg/dL [facility] Glucose 101 70 - 199 mg/dL [facility] Comment: Interpretive Data Fasting glucose [...] 2022. Calcium 8.6 8.5 - 10.3 mg/dL [facility] Blood 11/16/2024 11:5 8 AM CDT 11/16/2024 12:47 PM CDT Lee Elena MD LAB BLOOD ORDERABLES Krystyna l Result Performing Organization Address City/[facility] Co de Phone Number [facility] [place] [address] * (ABNORMAL) POCT glucose (11/16/2024 11:43 AM CDT) Glucose, POC 250(H) 70 - 199 mg/dL Comment:Glu2: RN/MD Notified Glucose comment 1 Glu2: RN/MD Notified [facility] Blood 11/16/2024 11:4 3 AM CDT 11/16/2024 11:43 AM CDT Lee Elena MD LAB POCT ORDERABLES - DEV ICE Final Result Performing Organization Address City/[facility] [place] [address] * POCT glucose (11/16/2024 7:55 AM CDT) Glucose, POC 98 70 - 199 mg/dL Blood 11/16/2024 7:55 AM CDT 11/16/2024 7:55 AM CDT Lee Elena MD LAB POCT ORDERABLES - DEV ICE Final Result Performing Organization Address City/[facility]/[place] [address] * ECG 12 lead (11/16/2024 7:09 AM CDT) Ventricular Rate EKG/Min 84 BPM [facility] Atrial Rate 84 BPM [facility] NE-Interval (MSEC) 126 ms [facility] QRS-Interval (MSEC) 66 ms [facility] QT-Interval (MSEC) 410 ms [facility] QTc 484 ms [facility] P [place] 19 degrees [facility] R [place] 41 degrees [facility] T [place] 92 degrees [facility] Diagnosis Normal sinus rhythm Nonspecific T wave abnormality Prolonged QT Abnormal ECG Confirmed by Gustabo Mcdaniels MD ([id number]) on 11/16/2024 8:39:02 AM [facility] 11/16/2024 7:09 AM CDT 11/16/2024 8:39 AM CDT Lee Elena MD ECG ORDERABLES Final Res ult Performing Organization Address [facility]/ZIP Co de Phone Number [facility] * Transfuse RBC (11/16/2024 6:22 AM CDT) Blood Lee Elena MD BLOOD TRANSFUSION ORDERAB LES Final Result Performing Organization Address [facility]/ZIP Co de Phone Number [facility] Department [place] [address] * POCT glucose (11/16/2024 4:21 AM CDT) Glucose, POC 119 70 - 199 mg/dL Blood 11/16/2024 4:21 AM CDT 11/16/2024 4:21 AM CDT Lee Elena MD LAB POCT ORDERABLES - DEV ICE Final Result Performing Organization Address [facility] Co de Phone Number [facility] Department [place] [address] * Type and screen (11/16/2024 1:45 AM CDT) Zach, indirect Negative ABO Rh A Positive [facility] Blood 11/16/2024 1:45 AM CDT 11/16/2024 2:04 AM CDT Narrative [facility] - 11/16/2024 2:58 AM CDT Has the patient had Daratumumab or Isatuximab in the past 6 months?->Unknown Lee Elena MD LAB BLOOD BANK TEST ORDER ALINE Final Result Performing Organization Address [facility] de Phone Number [facility] Department [place] [address] * POCT glucose (11/16/2024 12:24 AM CDT) Glucose, POC 107 70 - 199 mg/dL Blood 11/16/2024 12:2 4 AM CDT 11/16/2024 12:24 AM CDT Lee Elena MD LAB POCT ORDERABLES - DEV ICE Final Result Performing Organization Address [facility] de Phone Number [facility] Department [place] [address] * Prepare RBC: 1 Units (11/15/2024 10:35 PM CDT) Product code [id number] Unit Number [id number]- U [facility] Product Blood Type APOS [facility] Dispense Status PRESUMED TRANSFUSED [facility] Blood 11/15/2024 10:3 5 PM CDT 11/15/2024 10:34 PM CDT Narrative [facility] - 11/16/2024 4:01 PM CDT Are special requirements needed? (All products are leukoreduced and CMV- safe)- >No Date required:-[id number] LRRBC # of [id number] Reasons:-Hgb <7 g/dL} Lee Elena MD BLOOD BANK PRODUCT ORDERA BLES Final Result Performing Organization Address [facility] de Phone Number [facility] Department [place] [address] * eGFR (11/15/2024 8:16 PM CDT) [facility] eGFR >90 >=60 mL/min/1. 73 m2 Comment: [...] MD LAB BLOOD ORDERABLES Krystyna meyers Result [facility] Department [place] [address] * (ABNORMAL) Differential, auto (11/15/2024 8:16 PM CDT) Pathologist [facility] Neutrophil abs 2.95 1.50 - 6.50 K/cumm Imm gran abs 0.11(H) 0.00 - 0.10 K/cumm [facility] Lymphocyte abs 2.04 0.80 - 3.30 K/cumm [facility] Monocyte abs 0.49 0.20 - 0.80 K/cumm [facility] Eosinophil abs 0.10 0.00 - 0.50 K/cumm [facility] Basophil abs 0.02 0.00 - 0.10 K/cumm [facility] Neutrophil pct 51.6 % [facility] Comment: Interpretive Data Percent cell count reference ranges are not reported, since discordance with absolute values may lead to misinterpretation of CBC data. Current Interpretive Data was last revised on 2017. Imm gran pct 1.9 % [facility] Comment: Interpretive Data Percent cell count reference ranges are not reported, since discordance with absolute values may lead to misinterpretation of CBC data. Current Interpretive Data was last revised on 2017. Lymphocyte pct 35.7 % [facility] Comment: Interpretive Data Percent cell count reference ranges are not reported, since discordance with absolute values may lead to misinterpretation of CBC data. Current Interpretive Data was last revised on 2017. Monocyte pct 8.6 % [facility] Comment: Interpretive Data Percent cell count reference ranges are not reported, since discordance with absolute values may lead to misinterpretation of CBC data. Current Interpretive Data was last revised on 2017. Eosinophil pct 1.8 % [facility] Comment: Interpretive Data Percent cell count reference ranges are not reported, since discordance with absolute values may lead to misinterpretation of CBC data. Current Interpretive Data was last revised on 2017. Basophil pct 0.4 % [facility] Comment: Interpretive Data Percent cell count reference ranges are not reported, since discordance with absolute values may lead to misinterpretation of CBC data. Current Interpretive Data was last revised on 2017. Blood 11/15/2024 8:16 PM CDT 11/15/2024 9:37 PM CDT us Lee Elena MD LAB BLOOD ORDERABLES Krystyna mira Result [facility] [place] [address] * (ABNORMAL) CBC with auto differential (11/15/2024 8:16 PM CDT) WBC 5.71 3.80 - 9.90 K/cumm Hgb 6.9(L) 11.9 - 15.5 g/dL [facility] Hct 20.7(L) 35.6 - 45.5 % [facility] Plt 592(H) 150 - 400 K/cumm [facility] MPV 11.0 9.1 - 12.3 fL [facility] RBC 2.05(L) 3.90 - 5.20 M/cumm [facility] MCV 101.0(H) 81.3 - 96.4 fL [facility] MCH 33.7(H) 27.1 - 33.3 pg [facility] MCHC 33.3 32.3 - 35.7 g/dL [facility] RDW CV 21.6(H) 11.1 - 14.9 % [facility] RDW SD 77.4(H) 35.7 - 48.1 fL [facility] NRBC abs 0.00 0.00 - 0.01 K/cumm [facility] Blood 11/15/2024 8:16 PM CDT 11/15/2024 9:37 PM CDT us Lee Elena MD LAB BLOOD ORDERABLES Krystyna meyers Result [facility] Department [place] [address] * Blood culture Blood (11/15/2024 8:16 PM CDT) Report Final Report: No growth Blood 11/15/2024 8:16 PM CDT 11/15/2024 9:44 PM CDT Narrative [facility] - 11/20/2024 7:00 AM CDT [...] performance characteristics have been verified by the [facility] Microbiology Laboratory. For questions about this culture, contact the Microbiology Laboratory at [phone]. Interpretive data was last revised on 24. Lee Elena MD LAB MICROBIOLOGY - GENERA L ORDERABLES Final Result Performing Organization Address [facility] Co de Phone Number [facility] [place] [address] * Protime-INR (11/15/2024 8:16 PM CDT) Pathologist [facility] PT 10.7 9.7 - 13.0 sec INR 0.99 0.90 - 1.20 [facility] Comment: Interpretive data Oral anticoagulant [...] ORDERABLES Krystyna l Result Performing Organization Address [facility] Co de Phone Number [facility] Department [place] [address] * Phosphorus (11/15/2024 8:16 PM CDT) Pathologist [facility] Phosphorus, pl 4.0 2.3 - 4.5 mg/dL Blood 11/15/2024 8:16 PM CDT 11/15/2024 9:36 PM CDT Lee Elena MD LAB BLOOD ORDERABLES Krystyna l Result Performing Organization Address City/[facility]/ZIP Co de Phone Number [facility] [place] [address] * Magnesium (11/15/2024 8:16 PM CDT) Pathologist [facility] Magnesium 1.6 1.4 - 2.5 mg/dL Blood 11/15/2024 8:16 PM CDT 11/15/2024 9:36 PM CDT Lee Elena MD LAB BLOOD ORDERABLES Krystyna l Result Performing Organization Address [facility] de Phone Number [facility] Department [place] [address] * (ABNORMAL) Hepatic function panel (11/15/2024 8:16 PM CDT) Pathologist [facility] Bilirubin, total 0.5 0.1 - 1.2 mg/dL Bilirubin, direct 0.4(H) 0.1 - 0.3 mg/dL [facility] Protein, pl 4.8(L) 6.5 - 8.5 g/dL [facility] Albumin 2.1(L) 3.5 - 5.0 g/dL [facility] Alk phos 171(H) 40 - 130 Units/L [facility] ALT 11 7 - 45 Units/L [facility] AST 39 10 - 45 Units/L [facility] Blood 11/15/2024 8:16 PM CDT 11/15/2024 9:36 PM CDT Lee Elena MD LAB BLOOD ORDERABLES Krystyna l Result Performing Organization Address [facility] Co de Phone Number [facility] Department [place] [address] * (ABNORMAL) Basic metabolic panel (11/15/2024 8:16 PM CDT) [facility] Sodium 141 135 - 145 mmol/L Potassium, pl 4.0 3.3 - 4.9 mmol/L [facility] Chloride 105 97 - 110 mmol/L [facility] CO2 29 22 - 32 mmol/L [facility] Anion gap 7 2 - 15 mmol/L [facility] BUN 7 6 - 25 mg/dL [facility] Creatinine 0.46(L) 0.60 - 1.10 mg/dL [facility] Glucose 95 70 - 199 mg/dL [facility] Comment: Interpretive Data Fasting glucose [...] 2022. Calcium 7.7(L) 8.5 - 10.3 mg/dL [facility] Blood 11/15/2024 8:16 PM CDT 11/15/2024 9:36 PM CDT us Lee Elena MD LAB BLOOD ORDERABLES Krystyna l Result [facility] Department [place] [address] * POCT glucose (11/15/2024 7:40 PM CDT) Pathologist [facility] Glucose, POC 117 70 - 199 mg/dL Blood 11/15/2024 7:40 PM CDT 11/15/2024 7:40 PM CDT Lee Elena MD LAB POCT ORDERABLES - DEV ICE Final Result Performing Organization Address [facility] Co de Phone Number [facility] [place] [address] * POCT glucose (11/15/2024 5:11 PM CDT) Glucose, POC 100 70 - 199 mg/dL Blood 11/15/2024 5:11 PM CDT 11/15/2024 5:11 PM CDT Lee Elena MD LAB POCT ORDERABLES - DEV ICE Final Result Performing Organization Address [facility] de Phone Number [facility] [place] [address] * POCT glucose (11/15/2024 11:19 AM CDT) Glucose, POC 127 70 - 199 mg/dL Blood 11/15/2024 11:1 9 AM CDT 11/15/2024 11:19 AM CDT Lee Elena MD LAB POCT ORDERABLES - DEV ICE Final Result Performing Organization Address [facility] Co de Phone Number [facility] [place] [address] * POCT glucose (11/15/2024 8:44 AM CDT) Glucose, POC 106 70 - 199 mg/dL Blood 11/15/2024 8:44 AM CDT 11/15/2024 8:44 AM CDT Lee Elena MD LAB POCT ORDERABLES - DEV ICE Final Result Performing Organization Address City/[facility] Co de Phone Number [facility] [place] [address] * POCT glucose (11/15/2024 4:01 AM CDT) Glucose, POC 102 70 - 199 mg/dL Blood 11/15/2024 4:01 AM CDT 11/15/2024 4:01 AM CDT Lee Elena MD LAB POCT ORDERABLES - DEV ICE Final Result Performing Organization Address City/[facility] [place] [address] * POCT glucose (11/15/2024 12:15 AM CDT) Glucose, POC 110 70 - 199 mg/dL Blood 11/15/2024 12:1 5 AM CDT 11/15/2024 12:15 AM CDT Lee Elena MD LAB POCT ORDERABLES - DEV ICE Final Result Performing Organization Address [facility] [place] [address] * ECG 12 lead (11/14/2024 10:27 PM CDT) Ventricular Rate EKG/Min 103 BPM [facility] Atrial Rate 103 BPM [facility] NE-Interval (MSEC) 124 ms [facility] QRS-Interval (MSEC) 70 ms [facility] QT-Interval (MSEC) 380 ms [facility] QTc 497 ms [facility] P [place] 23 degrees [facility] R [place] 21 degrees [facility] T [place] 113 degrees [facility] Diagnosis Sinus tachycardia Nonspecific T wave abnormality Abnormal ECG Confirmed by Gustabo Mcdaniels MD ([id number]) on 11/15/2024 4:29:22 PM [facility] 11/14/2024 10:2 7 PM CDT 11/15/2024 4:29 PM CDT Lee Elena MD ECG ORDERABLES Final Res ult [facility] * N. gonorrhoeae/C. trachomatis Amplification Urine (11/14/2024 10:01 PM CDT) C. trachomatis Not Detected Not Detected [facility] N. gonorrhoeae Not Detected Not Detected [facility] Comment: Interpretive Data This assay detects Chlamydia trachomatis and Neisseria gonorrhoeae by nucleic acid amplification testing (NAAT). This assay has been cleared by the [place] Food and Drug administration. The performance characteristics of this test have been verified by the [facility] Molecular Infectious Disease laboratory. The performance characteristics of this test have not been evaluated in individuals less than 14 years of age. Current Interpretive Data last revised 2023. Urine (None) 11/14/2024 10:0 1 PM CDT 11/15/2024 3:36 AM CDT Lee Elnea MD LAB MICROBIOLOGY - GENERA L ORDERABLES Final Result Performing Organization Address City/[facility] Co de Phone Number [facility] Department [place] [address] [facility] * eGFR (11/14/2024 9:16 PM CDT) eGFR [...] Inclusion of Race in Diagnosing Kidney Disease, AMALIA 2020). The CKD-EPI equation should not be used for patients with unstable renal function and has not been validated in children and those over 70. Current interpretive data was last reviewed 2021. Blood 11/14/2024 9:16 PM CDT 11/14/2024 10:29 PM CDT Lee Elena MD LAB BLOOD ORDERABLES Krystyna meyers Result [facility] Department [place] [address] * (ABNORMAL) Differential, auto (11/14/2024 9:16 PM CDT) Neutrophil abs 4.79 1.50 - 6.50 K/cumm Imm gran abs 0.18(H) 0.00 - 0.10 K/cumm [facility] Lymphocyte abs 2.09 0.80 - 3.30 K/cumm [facility] Monocyte abs 0.68 0.20 - 0.80 K/cumm [facility] Eosinophil abs 0.10 0.00 - 0.50 K/cumm [facility] Basophil abs 0.05 0.00 - 0.10 K/cumm [facility] Neutrophil pct 60.7 % [facility] Comment: Interpretive Data Percent cell count reference ranges are not reported, since discordance with absolute values may lead to misinterpretation of CBC data. Current Interpretive Data was last revised on 2017. Imm gran pct 2.3 % [facility] Comment: Interpretive Data Percent cell count reference ranges are not reported, since discordance with absolute values may lead to misinterpretation of CBC data. Current Interpretive Data was last revised on 2017. Lymphocyte pct 26.5 % [facility] Comment: Interpretive Data Percent cell count reference ranges are not reported, since discordance with absolute values may lead to misinterpretation of CBC data. Current Interpretive Data was last revised on 2017. Monocyte pct 8.6 % [facility] Comment: Interpretive Data Percent cell count reference ranges are not reported, since discordance with absolute values may lead to misinterpretation of CBC data. Current Interpretive Data was last revised on 2017. Eosinophil pct 1.3 % [facility] Comment: Interpretive Data Percent cell count reference ranges are not reported, since discordance with absolute values may lead to misinterpretation of CBC data. Current Interpretive Data was last revised on 2017. Basophil pct 0.6 % [facility] Comment: Interpretive Data Percent cell count reference ranges are not reported, since discordance with absolute values may lead to misinterpretation of CBC data. Current Interpretive Data was last revised on 2017. Blood 11/14/2024 9:16 PM CDT 11/14/2024 10:29 PM CDT Lee Elena MD LAB BLOOD ORDERABLES Krystyna meyers Result [facility] Department [place] [address] * (ABNORMAL) CBC with auto differential (11/14/2024 9:16 PM CDT) WBC 7.89 3.80 - 9.90 K/cumm Hgb 7.4(L) 11.9 - 15.5 g/dL [facility] Hct 22.1(L) 35.6 - 45.5 % [facility] [facility] Plt 501(H) 150 - 400 K/cumm [facility] MPV 11.5 9.1 - 12.3 fL [facility] RBC 2.25(L) 3.90 - 5.20 M/cumm [facility] MCV 98.2(H) 81.3 - 96.4 fL [facility] MCH 32.9 27.1 - 33.3 pg [facility] MCHC 33.5 32.3 - 35.7 g/dL [facility] RDW CV 21.2(H) 11.1 - 14.9 % [facility] RDW SD 74.3(H) 35.7 - 48.1 fL [facility] NRBC abs 0.00 0.00 - 0.01 K/cumm [facility] Blood 11/14/2024 9:16 PM CDT 11/14/2024 10:29 PM CDT Lee Elena MD LAB BLOOD ORDERABLES Krystyna l Result Performing Organization Address [facility]/ZIP Co de Phone Number [facility] Department [place] [address] * Blood culture Blood (11/14/2024 9:16 PM CDT) Report Final Report: No growth Blood 11/14/2024 9:16 PM CDT 11/14/2024 10:47 PM CDT Narrative SHONA BACK - 11/19/2024 7:00 AM CDT From [...] performance characteristics have been verified by the [facility] Microbiology Laboratory. For questions about this culture, contact the Microbiology Laboratory at [phone]. Interpretive data was last revised on 24. us Lee Elena MD LAB MICROBIOLOGY - GENERA L ORDERABLES Final Result Performing Organization Address [facility]/ZIP Co de Phone Number [facility] Department [place] [address] * (ABNORMAL) Blood culture Blood (11/14/2024 9:16 PM CDT) Direct Specimen Exam Stain: Gram Positive Cocci in clusters Time to culture positivity (anaerobic media): 58.1 hours Notification of: Gram Positive Cocci in clusters called to and read back by: Ash Valencia M.D. [phone] on 11/17/2024 10:04:19 by: Nani Bueno MLS Report Final Report: Staphylococcus aureus For susceptibility results, refer to accession number [id number] on the blood culture from 11/14/2024 (.) [facility] Organism STAPHYLOCOCCUS AUREUS [facility] Blood 11/14/2024 9:16 PM CDT 11/14/2024 10:47 PM CDT Narrative [facility] - 11/20/2024 8:57 AM CDT Collection->Peripheral 1. [...] performance characteristics have been verified by the [facility] Microbiology Laboratory. For questions about this culture, contact the Microbiology Laboratory at [phone]. Interpretive data was last revised on 24. Lee Elena MD LAB MICROBIOLOGY - GENERA L ORDERABLES Final Result [facility] [place] [address] * Protime-INR (11/14/2024 9:16 PM CDT) Pathologist [facility] PT 12.1 9.7 - 13.0 sec INR 1.12 0.90 - 1.20 [facility] Comment: Interpretive data Oral anticoagulant [...] ORDERABLES Krystyna l Result Performing Organization Address [facility] de Phone Number [facility] [place] [address] * Uric acid (11/14/2024 9:16 PM CDT) [facility] Uric acid 3.4 2.5 - 7.0 mg/dL Blood 11/14/2024 9:16 PM CDT 11/14/2024 10:34 PM CDT Lee Elena MD LAB BLOOD ORDERABLES Krystyna l Result Performing Organization Address [facility] de Phone Number [facility] [place] [address] * (ABNORMAL) Phosphorus (11/14/2024 9:16 PM CDT) Pathologist [facility] Phosphorus, pl 5.1(H) 2.3 - 4.5 mg/dL Blood 11/14/2024 9:16 PM CDT 11/14/2024 10:29 PM CDT Lee Elena MD LAB BLOOD ORDERABLES Krystyna l Result Performing Organization Address City/[facility] Co de Phone Number [facility] [place] [address] * Magnesium (11/14/2024 9:16 PM CDT) Magnesium 1.9 1.4 - 2.5 mg/dL Blood 11/14/2024 9:16 PM CDT 11/14/2024 10:29 PM CDT Lee Elena MD LAB BLOOD ORDERABLES Krystyna l Result Performing Organization Address [facility] Co de Phone Number [facility] [place] [address] * Folate (11/14/2024 9:16 PM CDT) Folic acid 16.4 >=5.0 ng/mL Blood 11/14/2024 9:16 PM CDT 11/14/2024 10:29 PM CDT Lee Elena MD LAB BLOOD ORDERABLES Krystyna l Result Performing Organization Address [facility] Co de Phone Number [facility] [place] [address] * (ABNORMAL) Vitamin B12 (11/14/2024 9:16 PM CDT) Vitamin B12 1,820(H) 230 - 1,250 pg/mL Blood 11/14/2024 9:16 PM CDT 11/14/2024 10:29 PM CDT Lee Elena MD LAB BLOOD ORDERABLES Krystyna l Result [facility] [place] [address] * (ABNORMAL) Hepatic function panel (11/14/2024 9:16 PM CDT) Pathologist [facility] Bilirubin, total 0.6 0.1 - 1.2 mg/dL Bilirubin, direct 0.5(H) 0.1 - 0.3 mg/dL [facility] Protein, pl 4.7(L) 6.5 - 8.5 g/dL [facility] Albumin 2.0(L) 3.5 - 5.0 g/dL [facility] Alk phos 166(H) 40 - 130 Units/L [facility] ALT 10 7 - 45 Units/L [facility] AST 41 10 - 45 Units/L [facility] Blood 11/14/2024 9:16 PM CDT 11/14/2024 10:29 PM CDT Lee Elena MD LAB BLOOD ORDERABLES Krystyna l Result Performing Organization Address [facility] Co de Phone Number [facility] Department [place] [address] * (ABNORMAL) Basic metabolic panel (11/14/2024 9:16 PM CDT) [facility] Sodium 139 135 - 145 mmol/L Potassium, pl 3.7 3.3 - 4.9 mmol/L [facility] Chloride 100 97 - 110 mmol/L [facility] CO2 27 22 - 32 mmol/L [facility] Anion gap 12 2 - 15 mmol/L [facility] BUN 5(L) 6 - 25 mg/dL [facility] Creatinine 0.48(L) 0.60 - 1.10 mg/dL [facility] Glucose 84 70 - 199 mg/dL [facility] Comment: Interpretive Data Fasting glucose [...] 2022. Calcium 7.7(L) 8.5 - 10.3 mg/dL [facility] Blood 11/14/2024 9:16 PM CDT 11/14/2024 10:29 PM CDT Lee Elena MD LAB BLOOD ORDERABLES Krystyna l Result Performing Organization Address [facility] Co de Phone Number [facility] Department [place] [address] * POCT glucose (11/14/2024 7:37 PM CDT) Glucose, POC 119 70 - 199 mg/dL Blood 11/14/2024 7:37 PM CDT 11/14/2024 7:37 PM CDT Lee Elena MD LAB POCT ORDERABLES - DEV ICE Final Result Performing Organization Address [facility] de Phone Number [facility] Department [place] [address] * POCT glucose (11/14/2024 4:07 PM CDT) Glucose, POC 89 70 - 199 mg/dL Blood 11/14/2024 4:07 PM CDT 11/14/2024 4:07 PM CDT Lee Elena MD LAB POCT ORDERABLES - DEV ICE Final Result Performing Organization Address [facility] Co de Phone Number [facility] Department [place] [address] * TRANSESOPHAGEAL ECHO (MAXIMINO) W DOPPLER/CF WO CONTRAST (11/14/2024 2:19 PM CDT) LV EF 45 % CONS SCIMAGE Anatomical Region Laterality Modality Echocardiography 11/14/2024 1:49 PM CDT Narrative 11/15/2024 2:05 PM CDT [facility] [place] [address] Transesophageal Echocardiographic Report Patient Name: HAYLEY LEÓN L : 1990 (34y 9m) Gender: F Study Date: 11/14/2024 01:49:02 PM Ht(Inch): Wt(Lb): BSA: Chief Design Branch: Location: [id number] Order Provider: JULISSA MCGOWAN BMI: Ref Provider: [...] Procedure Note Aubrey Horvath MD - 11/15/2024 [facility] [place] [address] Transesophageal Echocardiographic Report Patient Name: HAYLEY LEÓN L : 1990 (34y 9m) Gender: F Study Date: 11/14/2024 01:49:02 PM Ht(Inch): Wt(Lb): BSA: Chief Design Branch: Location: [place] [address] Order Provider: JULISSA MCGOWAN BMI: Ref Provider: [...] Aubrey Horvath M.D. 11/15/2024 2:04:41 PM CDT us Julissa Mcgowan MD CV ECHO PROCEDURES Fin al Result * NE AN ELECTIVE ENDOTRACHEAL AIRWAY, NE AN PROCEDURE PLACEHOLDER (11/14/2024 1:56 PM CDT) [...] DEV ICE Final Result Performing Organization Address [facility] de Phone Number [facility] [place] [address] * POCT glucose (11/14/2024 10:49 AM CDT) Glucose, POC 88 70 - 199 mg/dL Blood 11/14/2024 10:4 9 AM CDT 11/14/2024 10:49 AM CDT Lee Elena MD LAB POCT ORDERABLES - DEV ICE Final Result Performing Organization Address [facility] Co de Phone Number [facility] [place] [address] * POCT glucose (11/14/2024 7:36 AM CDT) Glucose, POC 94 70 - 199 mg/dL Blood 11/14/2024 7:36 AM CDT 11/14/2024 7:36 AM CDT Lee Elena MD LAB POCT ORDERABLES - DEV ICE Final Result Performing Organization Address City/[facility] Co de Phone Number [facility] Department [place] [address] * POCT glucose (11/14/2024 4:28 AM CDT) Pathologist [facility] Glucose, POC 85 70 - 199 mg/dL Blood 11/14/2024 4:28 AM CDT 11/14/2024 4:28 AM CDT Lee Elena MD LAB POCT ORDERABLES - DEV ICE Final Result Performing Organization Address [facility] de Phone Number [facility] Department [place] [address] * (ABNORMAL) Blood culture Blood (11/14/2024 12:27 AM CDT) [facility] Direct Specimen Exam Stain: Gram Positive Cocci in clusters Time to culture positivity (anaerobic media): 36.1 hours Report Final Report: Staphylococcus aureus For susceptibility results, refer to accession number [id number] on the blood culture from 11/14/2024 (.) [facility] Organism STAPHYLOCOCCUS AUREUS [facility] Blood 11/14/2024 12:2 7 AM [...] performance characteristics have been verified by the [facility] Microbiology Laboratory. For questions about this culture, contact the Microbiology Laboratory at [phone]. Interpretive data was last revised on 24. Lee Elena MD LAB MICROBIOLOGY - GENERA L ORDERABLES Final Result [facility] Department [place] [address] * (ABNORMAL) Blood culture Blood (11/14/2024 12:16 AM CDT) Direct Specimen Exam Stain: Gram Positive Cocci in clusters Time to culture positivity (anaerobic media): 18.6 hours Time to culture positivity (aerobic media): 23.8 hours Direct Specimen Exam Molecular Analysis: Methicillin-suscep tible Staphylococcus aureus (MSSA) detected by the [facility] BCID-GP panel. This test does not exclude the possibility of a mixed bacterial infection. [facility] Report Final Report: Staphylococcus aureus Methicillin susceptible (MSSA) by penicillin binding protein 2a (PBP2a) testing. (.) [facility] Organism STAPHYLOCOCCUS AUREUS [facility] Blood 11/14/2024 12:1 6 AM CDT 11/14/2024 1:42 AM CDT Narrative [facility] - 11/17/2024 1:38 PM CDT Collection->Peripheral 1. [...] performance characteristics have been verified by the [facility] Microbiology Laboratory. For questions about this culture, contact the Microbiology Laboratory at [phone]. Interpretive data was last revised on 24. [...] MICROBIOLOGY - GENERA L ORDERABLES Final Result [facility] [place] [address] * Hepatitis panel, acute Blood (11/03/2024 2:31 PM CDT) Hep A IgM Nonreactive Nonreactive Hep B core IgM Nonreactive Nonreactive [facility] Hep C Ab Nonreactive Nonreactive [facility] Comment:Antibodies to HCV no t detected. Does NOT exclude the possibility of recent exposure to HCV. Current interpretive data was last revised on 22 HepBsAg Nonreactive Nonreactive [facility] Blood 11/03/2024 2:31 PM CDT 11/03/2024 2:38 PM CDT Mar George MD LAB MICROBIOLOGY - GENERAL ORDERABLES Final Result [facility] Department [place] [address] * THINPREP TIS PAP REFLEX HPV mRNA E6/E7, CHLAMYDIA/N.GONORRHOEAE (09/14/2016 12:56 PM GRAPHICS INTERN) CLINICAL INFORMATION [facility] HISTORICAL RESULTS Comment: LMP: [facility] HISTORICAL RESULTS PREV. PAP: [facility] HISTORICAL RESULTS Comment:2011 PREV. BX: [facility] HISTORICAL RESULTS Comment:UNKNOWN SOURCE: [facility] HISTORICAL RESULTS Comment:Cervix, Endocervix STATEMENT OF ADEQUACY: [facility] HISTORICAL RESULTS Comment:Satisfactory for savana luation. Endocervical/transformation zone component present. INTERPRETATION/RES ULT: [facility] HISTORICAL RESULTS Comment:Negative for intraep ithelial lesion or malignancy. COMMENT: [facility] HISTORICAL RESULTS Comment:This Pap test has be en evaluated with computer assisted technology. ACTUARIAL MANAGER: [facility] HISTORICAL RESULTS Comment:YQ, CT(ASCP) CT scre ening location: [place] [address] [place] [address] C. trachomatis RNA NOT DETECTED NOT DETECTED [facility] HISTORICAL RESULTS N. gonorrhoeae RNA NOT DETECTED NOT DETECTED [facility] HISTORICAL RESULTS COMMENT [facility] HISTORICAL RESULTS Comment: This test was performed using the APTIMA COMBO2 Assay ([employer] The analytical performance characteristics of this assay, when used to test SurePath specimens have been determined by [employer]. 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
--- NOTE | 2025-02-13 12:11 | ECG_ITS ---
Test Date: 2025-02-13 12:22:00 Measurements Intervals [place] Rate: 122 P: 78 NV: 88 QRS: 85 QRSD: 87 T: 268 QT: 308 QTc: 440 Interpretive Statements SINUS TACHYCARDIA WITH SHORT NV INTERVAL ST DEVIATION AND MODERATE T-WAVE ABNORMALITY, CONSIDER ANTEROLATERAL ISCHEMIA [-0.1+ mV T WAVE IN V3-V6] ST DEVIATION AND MODERATE T-WAVE ABNORMALITY, CONSIDER INFERIOR ISCHEMIA [-0.1+ mV T WAVE IN II/aVF] BASELINE ARTIFACT LIMITS INTERPRETATION ABNORMAL ECG Electronically Signed On 02-13-2025 14:08:46 CDT by Kevin Stanton M.D.
--- OUTSIDE RECORDS SUMMARY | 2025-02-13 12:11 | XMS_ITS | Encounter Summary ---
Author Organization [facility] Address [address] [place] [address] Phone Care Team Providers Care Python Java Developer Name Role Phone Mo Mitchell MD Primary Care Provider [phone] Reason for Visit * Reason Onset Date Comments Scheduling Appointments 02/01/2025 Encounter Details Date Type Department Care Team (Late st Contact Info) Description 02/01/2025 Telephone [facility] Cardiology [address] Advanced [address] [place] [address] [place] [address] Scheduling Appointments Social History Tobacco Use Types Packs/Day Years [...] materials from doctor or pharmacy Sometimes 01/18/2025 [facility] Utilities Answer Date Recorded In the past 12 months has th e electric, gas, oil, or water company [...] often do you attend chur ch or temple services? Never 11/29/2024 Do you belong to any clubs o r organizations such as sabianism groups, unions, fraternal or athletic groups, or [...] any time in the past 12 m onths, were you homeless or living in a [...] on file Legal Sex Female 8:06 PM PROCUREMENT SPECIALIST Gender Identity Not on file Sexual Orientation Not on file documented as of this encounter Miscellaneous Notes * Telephone Encounter - Ludivina Shaw - 02/01/2025 4:01 PM CDT Called patient and offered 02/05/25 with [employer]. Patient declined and asked for a . The first opening was 03/14/25 with Nani but she declined due to insurance possibly not covering during that appt. She states she will call back to schedule if necessary. 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
--- OUTSIDE RECORDS SUMMARY | 2025-02-13 12:11 | XMS_ITS | Patient Health Record ---
Author Organization Formerly [facility] Address [address] [place] [address] Care Team Providers Care Medical Artist Name Role Phone Mo Mitchell Primary Care Provider Aj Larry Unavailable [phone] Marilu Mora Unavailable [phone] Allergies Allergen (clinical drug ingredient) Drug/Non Drug [...] neg BUP neg Reason For Referral Reason PROTEIN-CALORIE MALN UTRITION DUE TO EATING DISORDER, PERIPHERAL NEUROPATHY, WEAKNESS AND UNSTEADY GAIT, TRIPS AND FALLS Diagnosis 1 Unsteady gait (R26.8 1) Referral Organization [facility] Referring Provider First Name Mo Referring Provider Last Name Paula Referring Provider Speciality Internal M edicine Referred Provider Specialty Physical The rapist General Notes BRITTANIE Patton, Tory Manzano 05/11/2024 09:02:12 AM > Referral to [facility] PT. letter to pt., Giovanna Hoyos 01/17/2025 02:50:03 PM >Talked with client who reported that this referral was not completed b/c client had gotten better & it was no longer needed. Closing referral. Clinical Notes [facility] Physical Therap y, [address], [facility] [address], , Referral Priority Routine Medications Medication SIG (Take, Route, Frequency, Duration) Notes Start Date End Date Status GoodSense Nicotine 2 MG 1 piece chew for 30 minutes as needed Mouth/Throat EVERY 1-2 HOURS 11/14/2023 Not-Taking Jevity 1.5 Adams/Fiber - 75 mL feeding tube four times daily; Duration: 30 days via feeding tube followed by 100 mL water flush 02/13/2024 Not-Taking Pregabalin 150 MG 1 capsule Orally TWI CE a day; Duration: 30 days 02/13/2024 Not-Taking DULoxetine HCl 60 MG 1 capsule Orally On ce a day; Duration: 30 days Not-Taking Ondansetron 8 MG 1 tablet on the tong ue and allow to dissolve as needed Orally Once a day; Duration: 30 days Not-Taking traZODone HCl 50 MG 1 tablet at bedtime as needed Orally Once a day; Duration: 30 days Not-Takin g Magnesium Oxide 420 MG 1 tablet with crystal d Orally Once a day Active Loperamide HCl 1 MG/7.5ML 15 mL as neede d Orally Four times a day Active Lactose - as directed Active Famotidine 20 MG 1 tablet at bedtime as needed Orally Once a day Active Ergocalciferol 1.25 MG (68961 UT) 1 capsule Orally Active Cefadroxil 500 MG 1 capsule [...] tablet as needed Orally 3 times a day; Duration: 30 days PAIN 12/05/2024 Active Nicotine 14 [...] 1 MG 1 tablet Orally Once a day; Duration: 30 days Active Ferrous Sulfate 325 (65 Fe) MG 1 tablet Orally twice a day; Duration: 30 day(s) Active Cyanocobalamin 1000 MCG 1 capsule Orally daily; Duration: 90 days Active Megestrol Acetate 20 MG 1 tablet Orally Twice a day; Duration: 30 days Active Acetaminophen 500 MG two [...] W/U Status Risk Notes Problem Tobacco user (936028175) Nicotine dependence, unspecified, uncomplicated (F17.200) Active confirmed Problem Eating disorder (74954788) Eating disorder, unspecified (F50.9) Active confirmed Problem Prolonged QT interval (290083562) Prolonged QT interval (I45.81) Active confirmed Problem Peripheral neuropathy (394899497) Peripheral neuropathy (G62.9) Active confirmed Problem Chronic pain (25271088) Chronic pain (G89.29) Active confirmed Problem Unsteady gait (17373137) Unsteady gait (R26.81) Active confirmed Problem Deficiency of macronutrients (disorder) (132844576) Protein-calorie malnutrition, unspecified severity (E46) Active confirmed [...] 12/05/2024 Encounters Encounter Location Date Provider Diagnosis [address] [place] [address] 03/20/2024 Mo Mitchell Peripheral neuropath y G62.9 ; Eating disorder, unspecified F50.9 ; Unsteady gait R26.81 ; Protein-calorie malnutrition, unspecified severity E46 and Periodontal disease K05.[address] [place] [address] 03/20/2024 Marilu Mora [address] [place] [address] 10/01/2024 Mo Mitchell Protein-calorie malnutrition, unspecified severity E46 ; Peripheral neuropathy G62.9 ; Eating disorder, unspecified F50.9 and Nicotine dependence, unspecified, uncomplicated F17.[address] [place] [address] 12/05/2024 Mo Mitchell Torsades de pointes I47.21 ; Prolonged QT interval I45.81 ; Chronic pain G89.29 ; Alcohol related disorder F10.99 ; Peripheral neuropathy G62.9 ; Protein-calorie malnutrition, unspecified severity E46 ; Unsteady gait R26.81 and Opioid use F11.90 [facility] [place] [address] 02/13/2025 Mo Mitchell [address] [place] [address] 02/20/2024 Mo Mitchell [facility] [place] [address] 11/23/2024 Mo Mitchell [facility] [place] [address] 12/03/2024 Mo Mitchell [facility] [place] [address] 12/03/2024 Mo Mitchell [address] [place] [address] 12/05/2024 Mo Mitchell [address] [place] [address] 12/19/2024 Mo Mitchell [facility] [address] [place] [address] 12/28/2024 Mo Mitchell [facility] [address] [place] [address] 01/02/2025 Mo Mitchell Hypokalemia E87.6 ; Alcohol related disorder F10.99 and Fatigue R53.83 [facility] [address] [place] [address] 01/08/2025 Mo Mitchell [facility] [address] [facility] [place] [address] 01/10/2025 Mo Mitchell [facility] [address] [facility] [place] [address] 01/16/2025 Mo Mitchell [facility] [address] [facility] [place] [address] 01/18/2025 Mo Mitchell [facility] [address] [facility] [place] [address] 02/01/2025 Mo Mitchell [address] [place] [address] 02/20/2024 Mo Mitchell Peripheral neuropath y G62.[address] [place] [address] 02/29/2024 Aj Larry Peripheral neuropath y G62.[address] [place] [address] 03/01/2024 Mo Mitchell [address] [place] [address] 03/19/2024 Mo Mitchell [address] [place] [address] 04/20/2024 Mo Mitchell [address] [place] [address] 06/13/2024 Mo Mitchell [address] [address] 06/14/2024 Mo Mitchell Eating disorder, unspecified F50.[address] [address] 06/18/2024 Mo Mitchell [address] [address] 06/27/2024 Mo Mitchell [address] [address] 07/27/2024 Mo Mitchell [address] [address] 07/30/2024 Mo Mitchell [address] [address] 09/25/2024 Mo Mitchell [address] [address] 10/15/2024 Mo Mitchell Eating disorder, unspecified F50.9 and Peripheral neuropathy G62.[address] [address] 01/23/2025 Mo Mitchell Assessments Encounter Date Diagnosis (ICD Code) Assessment Notes Treatment Notes Treatment Clinical Notes Section Notes 10/01/2024 Protein-calorie malnutrition, unspecified severity (ICD-10 - E46) 01/02/2025 Hypokalemia (ICD-10 - E87.6) 12/05/2024 Torsades de pointes (ICD-10 - I47.21) WILL NEED TO AVOID QT-PROLONGING DRUGS. F/U WITH CARDIOLOGY FOR MONITOR. 01/02/2025 Alcohol related disorder (ICD-10 - F10.99) 12/05/2024 Prolonged QT interval (ICD-10 - I45.81) F/U WITH CARDIOLOGY. 06/14/2024 Eating disorder, unspecified (ICD-10 - F50.9) 03/20/2024 Eating disorder, unspecified (ICD-10 - F50.9) 03/20/2024 Peripheral neuropathy (ICD-10 - G62.9) 02/29/2024 Peripheral neuropathy (ICD-10 - G62.9) 02/20/2024 Peripheral neuropathy (ICD-10 - G62.9) 10/15/2024 Eating disorder, unspecified (ICD-10 - F50.9) 10/01/2024 Peripheral neuropathy (ICD-10 - G62.9) 10/01/2024 Eating disorder, unspecified (ICD-10 - F50.9) 10/15/2024 Peripheral neuropathy (ICD-10 - G62.9) 03/20/2024 Unsteady gait (ICD-10 - R26.81) 12/05/2024 Chronic pain (ICD-10 - G89.29) OPTIONS ARE LIMITED TO OPIOIDS AT THIS TIME. SHE DOES NOT WANT TO TRY NEW NON-OPIOID PAIN MED YET. 01/02/2025 Fatigue (ICD-10 - R53.83) 12/05/2024 Alcohol related disorder (ICD-10 - F10.99) UNDERSTANDS THAT SHE MUST ABSTAIN FROM DRINKING. 03/20/2024 Protein-calorie malnutrition, unspecified severity (ICD-10 - E46) 10/01/2024 Nicotine dependence, unspecified, uncomplicated (ICD-10 - F17.200) 03/20/2024 Periodontal disease (ICD-10 - K05.6) SEE DENTIST MADIHA 12/05/2024 Peripheral neuropathy (ICD-10 - G62.9) PT/OTKRISTIAN 12/05/2024 Protein-calorie malnutrition, unspecified severity (ICD-10 - E46) CONTINUE TF 1.5 ADAMS/ML LOW LACTOSE SOLUTION 12/05/2024 Unsteady gait (ICD-10 - R26.81) KRISTIAN PT/OT 12/05/2024 Opioid use (ICD-10 - F11.90) Plan Of Treatment No Information Insurance Providers Payer Name Payer Address Payer Phone Subscriber Number Group Number Insured Name Patient Relationship to Insured Coverage Start Date Coverage End Date [address] [phone] [id number] Ester León Self - patient is the insured Medical (General) History Surgical History Surgery Date(Month/Year) peg tube 10/2023 child 2016 Hospitalization History Reason Date(Month/Year) [facility] 02/04/17 [facility] Cardiac arrest 10/2024 [facility]. infection 07/2024
--- OUTSIDE RECORDS SUMMARY | 2025-02-13 12:11 | XMS_ITS | Encounter Summary ---
Author Organization [facility] Facility Care Team Providers Care Switchboard Clerk Name Role Phone Christian Merritt MD Primary Care Provider [phone] Mo Mitchell MD Primary Care Provider [phone] Neeta Ott RN Unavailable Encounter Details Date Type Department Care Team (Latest Contact Info) Description 01/05/2017 Orders Only [facility] CLINCONV Provider, MD Serge [address] [place] [address] Social History Tobacco Use Types Packs/Day Years Used Date Smoking Tobacco: Never Assessed Comments Unknown Sex and Gender Information Value Date Recorded Sex Assigned at Not on file Legal Sex Female 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
--- NOTE | 2025-02-13 12:25 | ED.SYNCOPE ---
HPI - Syncope General Chief Complaint: Dizziness Stated Complaint: dizziness Time Seen by Provider: 02/13/25 12:25 Focused HPI: Patient is a 35-year-old female who presents to the ER with palpitations, dizziness, and abdominal pain. She reports her symptoms started ?a few days ago. Patient has a significant medical history including bulimia, cardiac arrest, G-tube placement, and has a life vest. She also endorses alcohol use. Patient denies any recent fevers, urinary symptoms, or new onset back pain. She endorses shaking in my head and numbness/tingling in her hands and feet. She reports ?I can not keep anything down and and vomiting a lot.Patient reports I feel like I am going to pass out. GENERAL: Ill-appearing, well-nourished, and in no acute distress. HEAD: Normocephalic, atraumatic. CHEST: Clear to auscultation. ?No respiratory distress. HEART: Tachycardia? NEURO: ?Alert and oriented x3. Patient screened in triage and initial orders placed.? ?Additional care and disposition to be based upon?diagnostic testing and treatment. Related Data Home Medications ?Medication ?Instructions ?Recorded ?Confirmed ?Last Taken ?Type ferrous sulfate 325 mg (65 mg 325 mg PO BID 03/28/24 02/13/25 02/11/25 History iron) tablet,delayed release folic acid 1 mg tablet 1 mg feeding tube DAILY 03/28/24 02/13/25 02/11/25 History megestrol 20 mg tablet 20 mg feeding tube BID 03/28/24 02/13/25 02/11/25 History multivitamin with folic acid 400 1 tablet PO QAM 03/28/24 02/13/25 02/11/25 History mcg tablet (Thera) thiamine HCl (vitamin B1) 100 mg 100 mg feeding tube DAILY 03/28/24 02/13/25 01/07/25 History tablet vitamin B complex (Vitamins B 1 cap feeding tube QAM 03/28/24 02/13/25 02/12/25 History Complex capsule) lactose-reduced food with fiber See Rx Instructions .Route .COMPLEX 08/07/24 02/13/25 01/07/25 History 0.06 gram-1.5 kcal/mL oral liquid (Jevity 1.5 Chriss) buspirone 15 mg tablet 15 mg feeding tube TID 01/08/25 02/13/25 02/12/25 History cyanocobalamin (vitamin B-12) 1,000 mcg feeding tube MONTHLY 01/08/25 02/13/25 02/12/25 History 1,000 mcg tablet nicotine 14 mg/24 hr daily 1 patch transdermal Q24H 01/08/25 02/13/25 01/07/25 History transdermal patch olanzapine 5 mg tablet 5 mg feeding tube QPM 01/08/25 02/13/25 02/11/25 History oxycodone 5 mg tablet 5 mg feeding tube Q8H PRN pain 01/08/25 02/13/25 02/12/25 History apixaban 5 mg tablet (Eliquis) 5 mg PO BID 02/13/25 02/13/25 02/10/25 History ergocalciferol (vitamin D2) 1,250 1,250 mcg feeding tube WEEKLY 02/13/25 02/13/25 02/06/25 History mcg (50,000 unit) capsule famotidine 20 mg tablet 20 mg PO HS 02/13/25 02/13/25 02/11/25 History magnesium oxide 400 mg (241.3 mg 420 mg feeding tube DAILY 02/13/25 02/13/25 02/11/25 History magnesium) tablet methocarbamol 750 mg tablet 750 mg feeding tube .q4hr 02/13/25 02/13/25 02/11/25 History nadolol 20 mg tablet 20 mg feeding tube DAILY 02/13/25 02/13/25 02/11/25 History simethicone 80 mg chewable tablet 80 mg feeding tube QID PRN 02/13/25 02/13/25 Unknown History abdominal distention trazodone 50 mg tablet 50 mg feeding tube HS 02/13/25 02/13/25 Unknown History Allergies Allergy/AdvReac Type Severity Reaction Status Date / Time latex Allergy Rash Verified 01/17/25 09:57 melatonin AdvReac Mild chest Verified 01/17/25 09:57 heaviness PMFSH Past Medical History Medical History Cardiac arrest with ventricular fibrillation October 2024 Adrenal insufficiency Depression with anxiety Avoidant/restrictive food intake disorder Cannabis abuse Elevated LFTs Mitral valve prolapse Surgical History Surgical History History of percutaneous endoscopic gastrostomy Family History Family History Mother Heart attack Mitral valve prolapse Grandparent Cancer Grandparent Mitral valve prolapse Social History Social History Social History: Surrogate medical decision maker: Jorge Luis Centeno, significant other. Code status: Full code. Smoking packs per day: 0.25 Smoking cigarettes per day: 5.0 Years smoked: 20 Smoking pack-years: 5.00 Smoking status: Current every day smoker Tobacco type: cigarettes Alcohol intake: current Drinks per week: 3 Alcohol use details: States she drinks 1 pint a week Substance use: former Substance use type: does not use and former substance user Other substance usage details: weekly Last use: 10/31/23 Do You Feel Safe in your Home?: Yes Lack of Transportation: No Lack of Food: Never True Current Housing: I Have Housing Concerned About Future Housing: No Difficulty Paying Gas/Electric Bills: No Difficulty Paying for Meds: No Currently Unemployed: No Education: Associate Degree Difficulty w/ Childcare or Family Care: No Living arrangements: with family Additional living arrangements comments: with 7 year old son and fianc? Occupation/Education: unemployed Spiritual care concerns: No Agree to blood products: Yes Course Vital Signs Vital signs: Vital Signs Temperature 36.5 C 02/13/25 12:07 Pulse Rate 150 H 02/13/25 12:07 Respiratory Rate 22 H 02/13/25 12:07 Blood Pressure 137/88 02/13/25 12:07 Pulse Oximetry 100 02/13/25 12:07 Oxygen Delivery Room Air 02/13/25 12:07 Temperature 36.8 C 02/15/25 08:00 Pulse Rate 71 02/15/25 08:00 Respiratory Rate 16 02/15/25 08:00 Blood Pressure 109/67 02/15/25 08:00 Pulse Oximetry 100 02/15/25 08:00 Oxygen Delivery Room Air 02/15/25 04:00 MDM - Syncope Lab Data 02/15/25 04:16 02/15/25 04:16 Labs: Lab Results 02/13/25 Range/Units 12:26 WBC 4.9 (4.5-10.0) K/mm3 RBC 4.21 (4.2-5.4) M/mm3 Hgb 13.5 (12.0-15.0) g/dL Hct 38.7 (37.0-47.0) % MCV 91.9 (80-100) fl MCH 32.1 (26-34) pg MCHC 34.9 (32-36) g/dl RDW 14.8 H (11.5-14.5) % Plt Count 146 L (150-375) k/mm3 MPV 10.5 H (7.4-10.4) fl Immature Gran % (Auto) 0.2 (0-0.5) % Neut % (Auto) 58.9 (45.5-73.1) % Lymph % (Auto) 32.9 (18.3-44.2) % Merrick % (Auto) 6.4 (2.6-8.5) % Eos % (Auto) 0.2 (0-4.4) % Baso % (Auto) 1.4 H (0.2-1.2) % Lymph # (Auto) 1.60 (0.9-3.2) K/mm3 Merrick # (Auto) 0.3 (0.1-0.6) K/mm3 Eos # (Auto) 0.0 (0-0.3) K/mm3 Baso # (Auto) 0.1 (0.0-0.1) K/mm3 Abs Immat Gran (auto) 0.01 (0.00-0.031) K/mm3 Absolute Neuts (auto) 2.9 (1.3-6.7) K/mm3 Absolute Nucleated RBC 0.000 (0.0-0.012) K/mm3 Nucleated RBC % 0.0 (0.0-0.2) % PT 12.9 (11.1-14.7) Seconds INR 1.0 APTT 24.6 (22.3-36.8) Seconds Sodium 136 L (137-145) mmol/L Potassium 2.8 L* (3.4-5.0) mmol/L Chloride 98 (98-107) mmol/L Carbon Dioxide 15 L (22-30) mmol/L Anion Gap 23 H (4-12) mmol/L BUN 9 (7-17) mg/dL Creatinine 0.69 L (0.7-1.0) mg/dL Estim Creat Clear Calc 75 ml/min Estimated GFR > 60 (59 - ) Glucose 120 H (65-110) mg/dL Calcium 9.3 (8.4-10.2) mg/dL Total Bilirubin 0.9 (0.2-1.3) mg/dL AST 75 H (14-36) U/L ALT 31 (6-35) U/L Alkaline Phosphatase 156 H (38-126) U/L Troponin I < 0.012 (0.000-0.034) ng/mL Total Protein 8.0 (6.3-8.2) g/dL Albumin 4.5 (3.5-5.1) g/dL Lipase 155 (23-300) U/L TSH (Reflex) 0.730 (0.465-4.68) uIU/mL Ethyl Alcohol 87 (<10) mg/dL Discharge Plan Discharge Clinical Impression: Acute hypokalemia, Acute hyponatremia, Malnutrition Patient Disposition: Still a Patient Condition: Stable
[2025-02-13 12:47] LABS: Hematocrit 38.7 % (37.0-47.0); Hemoglobin 13.5 g/dL (12.0-15.0); Immature Granulocyte Percent A 0.2 % (0-0.5); Lymphocytes Absolute Auto 1.60 K/mm3 (0.9-3.2); Mean Corpuscular HGB Conc 34.9 g/dl (32-36); Mean Corpuscular Hemoglobin 32.1 pg (26-34); Mean Corpuscular Volume 91.9 fl (80-100); Nucleated Red Blood Cells Absolute Auto 0.000 K/mm3 (0.0-0.012); Nucleated Red Blood Cells Perc 0.0 % (0.0-0.2); Platelet Count Result 146 k/mm3 (150-375); Red Blood Count 4.21 M/mm3 (4.2-5.4); White Blood Count 4.9 K/mm3 (4.5-10.0)
[2025-02-13 13:04] LABS: INR 1.0; Prothrombin Time 12.9 Seconds (11.1-14.7)
[2025-02-13 13:05] LABS: Partial Thromboplastin Time 24.6 Seconds (22.3-36.8)
[2025-02-13 13:21] LABS: Alanine Aminotransferase 31 U/L (6-35); Albumin Level 4.5 g/dL (3.5-5.1); Alkaline Phosphatase 156 U/L (38-126); Anion Gap 23 mmol/L (4-12); Aspartate Amino Transferase 75 U/L (14-36); Bilirubin,Total 0.9 mg/dL (0.2-1.3); Blood Urea Nitrogen 9 mg/dL (7-17); Calcium 9.3 mg/dL (8.4-10.2); Carbon Dioxide 15 mmol/L (22-30); Chloride 98 mmol/L (98-107); Estimated CRCL calculation 75 ml/min; Estimated Glomerular Filt Rate > 60; Glucose 120 mg/dL (65-110); Lipase 155 U/L (23-300); Potassium 2.8 mmol/L (3.4-5.0); Sodium 136 mmol/L (137-145); Total Protein 8.0 g/dL (6.3-8.2)
--- OUTSIDE RECORDS SUMMARY | 2025-02-13 13:33 | XMS_ITS | Encounter Summary ---
Author Organization [facility] Facility Care Team Providers Care Tug Master Name Role Phone Christian Merritt MD Primary Care Provider [phone] Mo Mitchell MD Primary Care Provider [phone] Neeta Ott RN Unavailable [phone] Encounter Details Date Type Department Care Team (Latest Contact Info) Description 12/09/2016 Orders Only [facility] CLINCONV Provider, MD Serge [address] [place] [address] Social History Tobacco Use Types Packs/Day Years Used Date Smoking Tobacco: Never Assessed Comments Unknown Sex and Gender Information Value Date Recorded Sex Assigned at Not on file Legal Sex Female 8: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
--- OUTSIDE RECORDS SUMMARY | 2025-02-13 13:33 | XMS_ITS | Encounter Summary ---
Author Organization [facility] Facility Care Team Providers Care Chemical Technician Name Role Phone Christian Merritt MD Primary Care Provider [phone] Mo Mitchell MD Primary Care Provider Neeta Ott RN Unavailable Encounter Details Date Type Department Care Team (Latest Contact Info) Description 12/06/2016 Orders Only [facility]G CLINCONV Provider, MD Serge [address] [place] [address] Social History Tobacco Use Types Packs/Day Years Used Date Smoking Tobacco: Never Assessed Comments Unknown Sex and Gender Information Value Date Recorded Sex Assigned at Not on file 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
--- OUTSIDE RECORDS SUMMARY | 2025-02-13 13:34 | XMS_ITS | Clinical Summary ---
Author Organization [facility] Address [address] [place] [address] [place] [address] Care Team Providers Care Graphic Design Intern Name Role Phone Unavailable Primary Care Provider [...]
--- OUTSIDE RECORDS SUMMARY | 2025-02-13 13:34 | XMS_ITS | Encounter Summary ---
Author Organization [facility] Healthcare Address [address] [place] [address] Care Team Providers Care Ingredient Scaler Helper Name Role Phone Mo Mitchell MD Primary Care Provider [phone] Reason for Visit * Auth/Cert (Routine) Specialty Diagnoses / Procedures Referred By Millie t Referred To Contact Referral ID Status Reason Start Date Expiration Date Visits Re quested Visits Authorized [id number] 1 11 Encounter Details Date Type Department Care Team (Late st Contact Info) Description 02/12/2025 2:30 PM CDT Home Care Visit [address] [place] [address] Nayely Pedroza, BRITTANIE SN HOME VISIT Social [...] materials from doctor or pharmacy Sometimes 01/18/2025 [facility] Utilities Answer Date Recorded In the [...] often do you attend chur ch or baptist services? 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 Gender Identity Not on file Sexual Orientation [...] Details Visit Type -SN Home Visit Discipline -Alf Problems Problem Description Start Date Status Goals Interve ntions Pressure Prevention Disciplines: Skilled Disciplines Pressure Prevention 12/01/2024 Active 1 goal linked to scheduled/docume nted intervention 1 goal intervention scheduled/documen margy in this visit Medications Disciplines: Alf Management of home medications 12/01/2024 Active 1 goal linked to scheduled/docume nted intervention 2 goal interventions scheduled/documen margy in this visit Monitor patient's vital signs every home health visit Disciplines: Skilled Disciplines, SN, PT, OT, TAPE COATER, DATA MANAGEMENT ANALYST Monitor patient's vital signs every home health [...] this visit Knowledge Deficit Enteral Feeding Disciplines: Alf Knowledge deficit for enteral feeding 12/01/2024 Active 1 goal linked to scheduled/docume nted intervention 5 goal interventions scheduled/documen margy in this visit Pain Disciplines: Alf Patient is experiencing pain 12/01/2024 Active 1 goal linked to scheduled/docume nted intervention 3 goal interventions scheduled/documen margy in this visit Alteration in coping Disciplines: Alf Alteration in coping related to necessary lifestyle adaptations 12/01/2024 Active 1 goal linked to scheduled/docume nted intervention 1 goal intervention scheduled/faiza ji in this visit Collect Specimen/Lab Draw Disciplines: Alf Management of specimen samples, including lab draws, stool, urine, sputum & wound cultures 12/28/2024 Active 1 goal linked to scheduled/docume nted intervention Collect Specimen/Lab Draw Disciplines: Alf Management of specimen samples, including lab draws, stool, urine, sputum & wound cultures 02/01/2025 Active 1 goal linked to scheduled/docume nted intervention Goals Goal Associated Problem Outcome Goal Met? Visit Notes Prevent development of pressure injuries Description: certified massage therapist goal: The patient will maintain intact skin [...] visit during episode of care Description: Home horse show judge to measure vital signs during every home [...] Completed documented in this encounter Care Teams Ingredient Scaler Helper Relationship Specialty Start Date End Date Mo Mitchell MD [address] [facility] [place] [address] PCP - General Internal Medicine 10/31/24 documented as of this encounter
--- OUTSIDE RECORDS SUMMARY | 2025-02-13 13:35 | XMS_ITS | Clinical Summary ---
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 Indications: treatment to prevent a heart [...] 02/12/2025 2:30 PM CDT Home Care Visit [address] [place] [address] Nayely Pedroza, BRITTANIE SN HOME VISIT 02/07/2025 10:00 AM CDT Home Care Visit [address] [place] [address] Isabelle Campbell, OT OT INITIAL EVALUATION 02/07/2025 9:00 AM CDT Home Care Visit [address] [place] [address] Pia Swan, BRITTANIE SN HOME VISIT 02/07/2025 Telephone [facility] Infectious Diseases [address] [facility] [address] [place] [address] Rosangela Simental, [facility] 02/06/2025 2:00 PM CDT Home Care Visit [address] [place] [address] Thang Solorzano, PT PT INITIAL EVALUATION 02/05/2025 Home Care Visit [address] [place] [address] Pia Moon, RN TELEPHONE ENCOUNTER 02/01/2025 Telephone [facility] Cardiology Critical access hospital1 [facility] 8th Floor [address] [place] [phone] Scheduling Appointments 01/31/2025 2:00 PM CDT Home Care Visit [address] [place] [address] Nayely Pedroza, BRITTANIE SN OASIS RECERTIFICATION 01/31/2025 Plan of Care Documentation [address] [place] [address] 01/29/2025 Home Care Visit [address] [place] [address] Nayely Pedroza, RN TELEPHONE ENCOUNTER 01/28/2025 Home Care Visit [address] [place] [address] Nayely Pedroza, RN TELEPHONE ENCOUNTER 01/24/2025 9:40 AM CDT Office Visit [facility] Infectious Diseases [address] [facility] [address] [place] [address] Dorothea Stephen NP MSSA bacteremia (Primary Dx) 01/22/2025 12:40 PM CDT - 01/22/2025 11:59 PM CDT Hospital Encounter [facility] [address] [place] [address] Discharge Disposition: Discharge to home or self care 01/22/2025 12:00 PM CDT Home Care Visit [address] [place] [address] Nayely Pedroza, BRITTANIE SN HOME VISIT 01/18/2025 10:30 AM CDT Home Care Visit [address] [place] [address] Billy Zarco RN SN OASIS RESUMPTION OF CARE 01/18/2025 Plan of Care Documentation [address] [place] [address] 01/17/2025 Orders Only [facility] Medical Group Cardiology [address] [place] [address] Oz Noble MD 01/17/2025 Home Care Visit [address] [place] [address] Pia Moon, RN SN OASIS TRANSFER W/OUT DC 01/16/2025 Home Care Visit [address] [place] [address] Pia Moon, RN TELEPHONE ENCOUNTER 01/15/2025 10:00 AM CDT Office Visit [facility] Cardiothoracic Surgery [address] [facility] Advanced Medicine 8th Floor [address] Room [address] [phone] Bo Fried MD Mass of left cardiac ventricle 01/15/2025 8:15 AM CDT - 01/15/2025 11:59 PM CDT Hospital Encounter [facility] Cardiac Diagnostic Lab [address] [facility] 8th [place] [phone] Bo Fried MD MSSA bacteremia; Thrombocytopenia Discharge Disposition: Discharge to home or self care 01/14/2025 Telephone [facility] Home Care Services [address] [facility] [address] [place] [address] SalasOndina [facility] 01/11/2025 Telephone [facility] Home Care Services [address] [facility] [address] [place] [phone] Vidhi Martin 01/09/2025 Telephone [facility] Infectious Diseases [address] [facility] [address] [place] [phone] Sidney Gould Jr., RN 01/08/2025 Telephone [facility] Home Care Services [address] [facility] [address] [place] [address] Vidhi Martin 01/01/2025 2:10 PM CDT - 01/01/2025 11:59 PM CDT Hospital Encounter [facility] [address] [place] [address] Discharge Disposition: Discharge to home or self care 01/01/2025 2:00 PM CDT Home Care Visit [address] [place] [address] Nayely Pedroza, BRITTANIE SN HOME VISIT 01/01/2025 Telephone [facility] Infectious Diseases [address] [facility] [address] [place] [phone] Sidney Gould Jr., RN 12/31/2024 Telephone [facility] Cardiology Critical access hospital1 [facility] 8th [place] [address] [place] [address] Nani Melchor NP 12/31/2024 Orders Only [facility] Infectious Diseases [address] [facility] [address] [place] [phone] Dorothea Stephen, [place] 12/28/2024 11:00 AM CDT Home Care Visit [address] [place] [address] Nayely Pedroza, RN SN HOME VISIT 12/27/2024 2:00 PM CDT Home Care Visit [address] [place] [address] Thang Solorzano, PT PT DISCIPLINE DISCHARGE 12/27/2024 9:13 AM CDT - 12/27/2024 11:59 PM CDT Hospital Encounter [facility] [address] [place] [address] Discharge Disposition: Discharge to home or self care 12/27/2024 8:40 AM CDT Office Visit [facility] Infectious Diseases [address] [facility] [address] [place] [address] Dorothea Stephen, [place] MSSA bacteremia (Primary Dx); Encounter for screening examination for sexually transmitted disease 12/27/2024 Telephone [facility] Infectious Diseases [address] [facility] [address] [place] [address] Dorothea Stephen, [place] 12/25/2024 Telephone [facility] Primary Care Medicine Clinic [address] [facility] [address] [place] [address] Veronika Ocampo MD 12/21/2024 2:00 PM CDT Home Care Visit [address] [place] [address] Thang Solorzano, PT PT HOME VISIT 12/21/2024 11:30 AM CDT Home Care Visit [address] [place] [address] Nayely Pedroza, RN SN HOME VISIT 12/21/2024 Orders Only [facility] Cardiology [address] [facility] 8th [place] [address] [place] [phone] Nani Melchor, [place] 12/19/2024 11:00 AM CDT Home Care Visit [address] [place] [address] Thang Solorzano, PT PT HOME VISIT 12/19/2024 Home Care Visit [address] [place] [address] Thang Solorzano, PT CASE COMMUNICATION 12/13/2024 10:45 AM CDT Home Care Visit [address] [place] [address] Khushboo Jarvis, PT PT HOME VISIT 12/11/2024 2:30 PM CDT Home Care Visit [address] [place] [address] Khushboo Jarvis, PT PT HOME VISIT 12/11/2024 1:00 PM CDT Home Care Visit [address] [place] [address] Nayely Pedroza, RN SN HOME VISIT 12/07/2024 SHOP/CHAP Subsequent Outreach [facility] OP CASE MANAGEMENT [address] [place] [address] Neeta Ott, BRITTANIE 12/06/2024 12:30 PM CDT Home Care Visit [address] [place] [address] Nayely Pedroza, BRITTANIE SN HOME VISIT 12/06/2024 11:00 AM CDT Home Care Visit [address] [place] [address] Isabelle Campbell, OT OT INITIAL EVALUATION 12/05/2024 SHOP/CHAP Subsequent Outreach [facility] OP CASE MANAGEMENT [address] [place] [address] Neeta Ott, BRITTANIE 12/04/2024 SHOP/CHAP Subsequent Outreach [facility] OP CASE MANAGEMENT [address] [place] [address] Neeta Ott, RN 12/04/2024 Home Care Visit [address] [place] [address] Nayely Pedroza, RN CARE CONFERENCE 12/03/2024 1:10 PM CDT Telemedicine [address] [facility] [place] [address] Yamilex Mathew, [place] Torsades de pointes (HCC) (Primary Dx); MSSA bacteremia 12/03/2024 10:00 AM CDT Home Care Visit [address] [place] [address] Thang Solorzano, PT PT INITIAL EVALUATION 12/03/2024 Home Care Visit [address] [place] [address] Billy Zarco, RN TELEPHONE ENCOUNTER 12/03/2024 Home Care Visit [address] [place] [address] Thang Solorzano, PT TELEPHONE ENCOUNTER 12/01/2024 12:00 PM CDT Home Care Visit [place] [address] [place] [address] Billy Zarco, RN SN OASIS START OF CARE 12/01/2024 Plan of Care Documentation [place] [address] [address] [place] [address] 11/30/2024 Orders Only [facility] Cardiothoracic Surgery Critical access hospital1 [facility] 8th Floor [address] Room [address] [place] [phone] Lee Elena MD Mass of left cardiac ventricle (Primary Dx) 11/29/2024 Telephone [facility] Home Care Services [address] [facility] [address] [place] [address] Dora Sandra 11/29/2024 Orders Only Internal Medicine Alex Wynn MD 11/29/2024 SHOP/CHAP Initial Outreach [facility] OP CASE MANAGEMENT [address] [place] [phone] Neeta Ott RN 11/29/2024 SHOP/CHAP Initial Eligibility Review [facility] OP CASE MANAGEMENT [address] [place] [address] Neeta Ott RN 11/28/2024 Home Care Visit [facility] Home Health - [address] [place] [address] Hortensia Valentino, BRITTANIE SN TRIAGE ENCOUNTER 11/28/2024 Orders Only [facility] Cardiothoracic Surgery [address] [facility] Medicine 8th Floor [address] Room [address] [place] [phone] Bo Fried MD MSSA bacteremia (Primary Dx); Thrombocytopenia 11/23/2024 Telephone [facility] Home Care Services [address] [place] [address] Dora Sandra 11/14/2024 1:40 PM CDT Anesthesia Event [facility] [address] [place] [address] Rudy Licona MD 10/31/2024 2:44 AM CDT - 11/28/2024 3:29 PM CDT Hospital Encounter [address] [phone] Rahul Ramirez MD Vazquez Guillamet, MD Arnulfo [...] No 01/18/2025 OASIS B1300: Health Literacy Answer Garrtet e Recorded Frequency of needing help to read materials from doctor or pharmacy Sometimes 01/18/2025 [facility] Utilities Answer Date Recorded In the past 12 months has th e [email or web address], gas, oil, or water company threatened to [...] often do you attend chur ch or anabaptism services? Never 11/29/2024 Do you belong to any clubs o r organizations such as anabaptist groups, unions, fraternal or athletic groups, or [...] any time in the past [address] [facility], were you homeless or living in a detention (including now)? No 11/29/2024 Personal Safety Answer Date Recorded Have you ever been in or are you currently in a harmful physical or emotional relationship or is someone making you feel afraid or unsafe? Denies 10/31/2024 Comments No Sex and Gender Information Value Date Recorded Sex Assigned at Not on file Legal Sex Female 8:06 PM MANAGER [place] Gender Identity Not on file Sexual Orientation [...] Date/Time Associated Diagnosis Comments BLOOD MISC TO [place] Routine 01/22/2025 12 :40 PM CDT EGFR [...] WO CONTRAST Routine 11/14/2024 2:19 PM CDT MS AN PROCEDURE PLACEHOLDER Routine 11/14/2024 1:56 PM CDT MS AN ELECTIVE ENDOTRACHEAL AIRWAY Routine 11/14/2024 1:56 [...] MRNA E6/E7, CHLAMYDIA/N.GONORRHOEAE Routine 09/14/2016 12:56 PM MANAGER [place] from Last 3 Months or Most Recently Relevant to Health Maintenance Results * BLOOD MISC TO [place] (01/22/2025 12:40 PM CDT) Test name, chem CDTA,CARBOHYD RATE DEFICIENT TRANSFERRIN,A DULT SCRE [facility] Comment:Credited, test not i ndicated. Misc see comment [facility] Comment:Credited, test not i ndicated. Blood 01/22/2025 12:4 0 PM CDT 01/24/2025 2:14 PM CDT us Notinfile Unknown LAB BLOOD ORDERABLES Final Res ult Performing Organization Address [facility] Co de Phone Number [facility] of LMN-[address] [place] [address] [facility] * eGFR (01/22/2025 12:40 PM CDT) Pathologist [facility] eGFR >90 >=60 mL/min/1. 73 m2 [...] ORDERABLES Final Res ult Performing Organization Address [facility]/ZIP Co de Phone Number [facility] Department of [address] [place] [address] * Differential, auto (01/22/2025 12:40 PM CDT) Neutrophil abs 2.80 1.50 - 6.50 K/cumm Imm gran abs 0.00 0.00 - 0.10 K/cumm [facility] Lymphocyte abs 2.66 0.80 - 3.30 K/cumm [facility] Monocyte abs 0.21 0.20 - 0.80 K/cumm [facility] Eosinophil abs 0.14 0.00 - 0.50 K/cumm [facility] Basophil abs 0.05 0.00 - 0.10 K/cumm [facility] Neutrophil pct 47.7 % [facility] Comment: Interpretive Data Percent cell count reference ranges are not reported, since discordance with absolute values may lead to misinterpretation of CBC data. Current Interpretive Data was last revised on 2017. Imm gran pct 0.0 % [facility] Comment: Interpretive Data Percent cell count reference ranges are not reported, since discordance with absolute values may lead to misinterpretation of CBC data. Current Interpretive Data was last revised on 2017. Lymphocyte pct 45.4 % [facility] Comment: Interpretive Data Percent cell count reference ranges are not reported, since discordance with absolute values may lead to misinterpretation of CBC data. Current Interpretive Data was last revised on 2017. Monocyte pct 3.6 % [facility] Comment: Interpretive Data Percent cell count reference ranges are not reported, since discordance with absolute values may lead to misinterpretation of CBC data. Current Interpretive Data was last revised on 2017. Eosinophil pct 2.4 % [facility] Comment: Interpretive Data Percent cell count reference ranges are not reported, since discordance with absolute values may lead to misinterpretation of CBC data. Current Interpretive Data was last revised on 2017. Basophil pct 0.9 % [facility] Comment: Interpretive Data Percent cell count reference ranges are not reported, since discordance with absolute values may lead to misinterpretation of CBC data. Current Interpretive Data was last revised on 2017. Blood 01/22/2025 12:4 0 PM CDT 01/22/2025 3:52 PM CDT us Notinfile Unknown LAB BLOOD ORDERABLES Final Res ult Performing Organization Address City/[facility]/ZIP Co de Phone Number [facility] [place] [address] * (ABNORMAL) Iron profile w/ IBC (01/22/2025 12:40 PM CDT) Pathologist [facility] Iron 60 35 - 145 mcg/dL TIBC 322 250 - 400 mcg/dL [facility] Transferrin saturation 19(L) 20 - 50 % [facility] Blood 01/22/2025 12:4 0 PM CDT 01/22/2025 3:52 PM CDT us Notinfile Unknown LAB BLOOD ORDERABLES Final Res ult Performing Organization Address [facility] Co de Phone Number [facility] [place] [address] * (ABNORMAL) CBC with auto differential (01/22/2025 12:40 PM CDT) [facility] WBC 5.86 3.80 - 9.90 K/cumm Hgb 12.9 11.9 - 15.5 g/dL [facility] Hct 39.0 35.6 - 45.5 % [facility] Plt 170 150 - 400 K/cumm [facility] MPV 11.0 9.1 - 12.3 fL [facility] RBC 4.01 3.90 - 5.20 M/cumm [facility] MCV 97.3(H) 81.3 - 96.4 fL [facility] MCH 32.2 27.1 - 33.3 pg [facility] MCHC 33.1 32.3 - 35.7 g/dL [facility] RDW CV 13.4 11.1 - 14.9 % [facility] RDW SD 47.5 35.7 - 48.1 fL [facility] NRBC abs 0.00 0.00 - 0.01 K/cumm [facility] Blood 01/22/2025 12:4 0 PM CDT 01/22/2025 3:52 PM CDT us Notinfile Unknown LAB BLOOD ORDERABLES Final Res ult Performing Organization Address [facility] de Phone Number [facility] [place] [address] * Magnesium (01/22/2025 12:40 PM CDT) Magnesium 2.0 1.4 - 2.5 mg/dL Blood 01/22/2025 12:4 0 PM CDT 01/22/2025 3:52 PM CDT us Notinfile Unknown LAB BLOOD ORDERABLES Final Res ult Performing Organization Address [facility] de Phone Number [facility] [place] [address] * Folate (01/22/2025 12:40 PM CDT) Folic acid >20.0 >=5.0 ng/mL Blood 01/22/2025 12:4 0 PM CDT 01/22/2025 3:52 PM CDT us Notinfile Unknown LAB BLOOD ORDERABLES Final Res ult Performing Organization Address [facility] de Phone Number [facility] [place] [address] * Vitamin B12 (01/22/2025 12:40 PM CDT) Vitamin B12 815 230 - 1,250 pg/mL Blood 01/22/2025 12:4 0 PM CDT 01/22/2025 3:52 PM CDT us Notinfile Unknown LAB BLOOD ORDERABLES Final Res ult Performing Organization Address [facility]/ZIP Co de Phone Number [facility] Department [place] [address] * (ABNORMAL) Comprehensive metabolic panel (01/22/2025 12:40 PM CDT) Sodium 135 135 - 145 mmol/L Potassium, pl 3.4 3.3 - 4.9 mmol/L [facility] Chloride 98 97 - 110 mmol/L [facility] CO2 23 22 - 32 mmol/L [facility] Anion gap 14 2 - 15 mmol/L [facility] BUN 9 6 - 25 mg/dL [facility] Creatinine 0.63 0.60 - 1.10 mg/dL [facility] Glucose 85 70 - 199 mg/dL [facility] Comment: Interpretive Data Fasting glucose >/= 126 [...] 2022. Calcium 10.1 8.5 - 10.3 mg/dL [facility] Bilirubin, total 0.4 0.1 - 1.2 mg/dL [facility] Protein, pl 7.5 6.5 - 8.5 g/dL [facility] Albumin 4.1 3.5 - 5.0 g/dL [facility] Alk phos 139(H) 40 - 130 Units/L [facility] ALT 33 7 - 45 Units/L [facility] AST 58(H) 10 - 45 Units/L [facility] Blood 01/22/2025 12:4 0 PM CDT 01/22/2025 3:52 PM CDT us Notinfile Unknown LAB BLOOD ORDERABLES Final Res ult SHONA [facility] [address] [facility] Department [place] [address] * TRANSTHORACIC ECHO (TTE) COMPLETE W DOPPLER/CF W CONTRAST (01/15/2025 9:57 AM CDT) EF Mod BP 55 % CONS SCIMAGE Anatomical Region Laterality Modality Ultrasound 01/15/2025 8:50 AM CDT Narrative 01/15/2025 11:28 AM CDT [facility] [place] [address] Transthoracic Echocardiographic Report Patient Name: HAYLEY LEÓN L : 1990 (34y 11m) Gender: F Study Date: 01/15/2025 08:50:13 AM Ht(Inch): 61 Wt(Lb): 102.07 BSA: 1.41 Technology Architect: Roza. Watkins [facility] Location: [facility] Order Provider: BO FRIED Heart [...] Note Italo Hill MD PhD - 01/15/2025 [facility] [place] [address] Transthoracic Echocardiographic Report Patient Name: HAYLEY LEÓN L : 1990 (34y 11m) Gender: F Study Date: 01/15/2025 08:50:13 AM Ht(Inch): 61 Wt(Lb): 102.07 BSA: 1.41 Technology Architect: Roza. Watkins [facility] Location: [facility] Order Provider:BO FRIED Heart Rate: [...] LA Length 2C 3.64 cm MV Decel Gklj285.25 msec [ 104.00 - 258.00 ] LA [...] NP LAB BLOOD ORDERABLES Krystyna l Result [facility] Department [place] [address] * (ABNORMAL) Basic metabolic panel (01/01/2025 2:10 PM CDT) Sodium 139 135 - 145 mmol/L Potassium, pl 2.9(L) 3.3 - 4.9 mmol/L [facility] Chloride 98 97 - 110 mmol/L [facility] CO2 26 22 - 32 mmol/L [facility] Anion gap 15 2 - 15 mmol/L [facility] BUN 11 6 - 25 mg/dL [facility] Creatinine 0.63 0.60 - 1.10 mg/dL [facility] Glucose 91 70 - 199 mg/dL [facility] Comment: Interpretive Data Fasting glucose >/= 126 [...] 2022. Calcium 9.2 8.5 - 10.3 mg/dL [facility] Blood 01/01/2025 2:10 PM CDT 01/01/2025 6:04 PM CDT Dorothea Stephen MANAGER ROOFING LAB BLOOD ORDERABLES Krystyna meyers Result [facility] Department [place] [address] * Glucose, random (Outreach) (12/27/2024 9:13 AM [...] ORDERABLES Krystyna l Result SHONA RAMIREZ [facility] Department [place] [address] * eGFR (12/27/2024 9:13 AM CDT) eGFR [...] ORDERABLES Krystyna l Result SHONA BACK [address] [facility] Department [place] [address] * Differential, auto (12/27/2024 9:13 AM CDT) Neutrophil abs 3.36 1.50 - 6.50 K/cumm Imm gran abs 0.01 0.00 - 0.10 K/cumm [facility] Lymphocyte abs 1.97 0.80 - 3.30 K/cumm [facility] Monocyte abs 0.37 0.20 - 0.80 K/cumm [facility] Eosinophil abs 0.18 0.00 - 0.50 K/cumm [facility] Basophil abs 0.04 0.00 - 0.10 K/cumm [facility] Neutrophil pct 56.7 % [facility] Comment: Interpretive Data Percent cell count reference ranges are not reported, since discordance with absolute values may lead to misinterpretation of CBC data. Current Interpretive Data was last revised on 2017. Imm gran pct 0.2 % [facility] Comment: Interpretive Data Percent cell count reference ranges are not reported, since discordance with absolute values may lead to misinterpretation of CBC data. Current Interpretive Data was last revised on 2017. Lymphocyte pct 33.2 % [facility] Comment: Interpretive Data Percent cell count reference ranges are not reported, since discordance with absolute values may lead to misinterpretation of CBC data. Current Interpretive Data was last revised on 2017. Monocyte pct 6.2 % [facility] Comment: Interpretive Data Percent cell count reference ranges are not reported, since discordance with absolute values may lead to misinterpretation of CBC data. Current Interpretive Data was last revised on 2017. Eosinophil pct 3.0 % [facility] Comment: Interpretive Data Percent cell count reference ranges are not reported, since discordance with absolute values may lead to misinterpretation of CBC data. Current Interpretive Data was last revised on 2017. Basophil pct 0.7 % [facility] Comment: Interpretive Data Percent cell count reference ranges are not reported, since discordance with absolute values may lead to misinterpretation of CBC data. Current Interpretive Data was last revised on 2017. Blood 12/27/2024 9:13 AM CDT 12/27/2024 10:37 AM CDT us Dorothea Stephen MANAGER ROOFING LAB BLOOD ORDERABLES Krystyna l Result Performing Organization Address [facility] Co de Phone Number [facility] Department of [place] [address] * (ABNORMAL) Comprehensive metabolic panel, without glucose (Outreach) (12/27/2024 9:13 AM CDT) [facility] Sodium 136 135 - 145 mmol/L Potassium, pl 2.9(L) 3.3 - 4.9 mmol/L [facility] Chloride 98 97 - 110 mmol/L [facility] CO2 24 22 - 32 mmol/L [facility] Anion gap 14 2 - 15 mmol/L [facility] BUN 9 6 - 25 mg/dL [facility] Creatinine 0.64 0.60 - 1.10 mg/dL [facility] Calcium 9.7 8.5 - 10.3 mg/dL [facility] Protein, pl 8.2 6.5 - 8.5 g/dL [facility] Albumin 4.2 3.5 - 5.0 g/dL [facility] Bilirubin, total 0.7 0.1 - 1.2 mg/dL [facility] Alk phos 175(H) 40 - 130 Units/L [facility] AST 51(H) 10 - 45 Units/L [facility] ALT 25 7 - 45 Units/L [facility] Blood 12/27/2024 9:13 AM CDT 12/27/2024 10:38 AM CDT Dorothea Stephen MANAGER ROOFING LAB BLOOD ORDERABLES Krystyna l Result Performing Organization Address [facility]/ZIP Co de Phone Number [facility] Department [place] [address] * (ABNORMAL) CBC with auto differential (12/27/2024 9:13 AM CDT) [facility] WBC 5.93 3.80 - 9.90 K/cumm Hgb 13.9 11.9 - 15.5 g/dL [facility] Hct 40.1 35.6 - 45.5 % [facility] Plt 138(L) 150 - 400 K/cumm [facility] MPV 11.4 9.1 - 12.3 fL [facility] RBC 4.23 3.90 - 5.20 M/cumm [facility] MCV 94.8 81.3 - 96.4 fL [facility] MCH 32.9 27.1 - 33.3 pg [facility] MCHC 34.7 32.3 - 35.7 g/dL [facility] RDW CV 13.0 11.1 - 14.9 % [facility] RDW SD 45.3 35.7 - 48.1 fL [facility] NRBC abs 0.00 0.00 - 0.01 K/cumm [facility] Blood 12/27/2024 9:13 AM CDT 12/27/2024 10:37 AM CDT us Dorothea Stephen NP LAB BLOOD ORDERABLES Krystyna l Result Performing Organization Address City/[facility]/ZIP Co de Phone Number [facility] Department of [address] [place] [address] * Magnesium (12/27/2024 9:13 AM CDT) [facility] Magnesium 1.9 1.4 - 2.5 mg/dL Blood 12/27/2024 9:13 AM CDT 12/27/2024 10:50 AM CDT Mo Villatoro MD LAB BLOOD ORDERABLES Final Resul t Performing Organization Address City/[facility]/ZIP Co de Phone Number [facility] [place] [address] * Blood culture Blood (12/27/2024 9:05 AM CDT) Report Final Report: No growth Blood 12/27/2024 9:05 AM CDT 12/27/2024 11:47 AM CDT Narrative [facility] - 12/31/2024 12:00 PM CDT [...] performance characteristics have been verified by the [facility] Microbiology Laboratory. For questions about this culture, contact the Microbiology Laboratory at [phone]. Interpretive data was last revised on 24. Dorothea Stephen NP LAB MICROBIOLOGY - GENERA L ORDERABLES Final Result [facility] Department [place] [address] * Blood culture Blood (12/27/2024 9:05 AM CDT) Report Final Report: No growth Blood 12/27/2024 9:05 AM CDT 12/27/2024 11:47 AM CDT Narrative [facility] - 12/31/2024 12:00 PM CDT [...] performance characteristics have been verified by the [facility] Microbiology Laboratory. For questions about this culture, contact the Microbiology Laboratory at [phone]. Interpretive data was last revised on 24. Dorothea Stephen NP LAB MICROBIOLOGY - GENERA L ORDERABLES Final Result [facility] Department [place] [address] * (ABNORMAL) Cystatin C (11/28/2024 10:45 AM CDT) [facility] Cystatin C 1.23(H) 0.60 - 1.20 mg/L Comment: Interpretive Data Cystatin C concentrations vary widely in the first month of life, particularly in pre-term infants. Concentrations gradually diminish to adult levels by 1 year of life. Concentrations tend to rise with diminishing renal function in individuals greater than 60 years of age. Current Interpretive Data was last revised on 2020. Testing performed by: [facility], [facility], [place]., [address] Blood 11/28/2024 10:4 5 AM CDT 11/28/2024 12:03 PM CDT us Alex Wynn MD LAB BLOOD ORDERABLES Final Resu lt Performing Organization Address [facility] Co de Phone Number [facility] Department [place] [address] * eGFR (11/27/2024 9:44 PM CDT) eGFR [...] ORDERABLES Krystyna l Result Performing Organization Address City/[facility]/ZIP Co de Phone Number [facility] Department [place] [address] * (ABNORMAL) Differential, auto (11/27/2024 9:44 PM CDT) Pathologist [facility] Neutrophil abs 2.70 1.50 - 6.50 K/cumm Imm gran abs 0.03 0.00 - 0.10 K/cumm [facility] Lymphocyte abs 2.90 0.80 - 3.30 K/cumm [facility] Monocyte abs 0.50 0.20 - 0.80 K/cumm [facility] Eosinophil abs 0.13 0.00 - 0.50 K/cumm [facility] Basophil abs 0.13(H) 0.00 - 0.10 K/cumm [facility] Neutrophil pct 42.3 % [facility] Comment: Interpretive Data Percent cell count reference ranges are not reported, since discordance with absolute values may lead to misinterpretation of CBC data. Current Interpretive Data was last revised on 2017. Imm gran pct 0.5 % [facility] Comment: Interpretive Data Percent cell count reference ranges are not reported, since discordance with absolute values may lead to misinterpretation of CBC data. Current Interpretive Data was last revised on 2017. Lymphocyte pct 45.4 % [facility] Comment: Interpretive Data Percent cell count reference ranges are not reported, since discordance with absolute values may lead to misinterpretation of CBC data. Current Interpretive Data was last revised on 2017. Monocyte pct 7.8 % [facility] Comment: Interpretive Data Percent cell count reference ranges are not reported, since discordance with absolute values may lead to misinterpretation of CBC data. Current Interpretive Data was last revised on 2017. Eosinophil pct 2.0 % [facility] Comment: Interpretive Data Percent cell count reference ranges are not reported, since discordance with absolute values may lead to misinterpretation of CBC data. Current Interpretive Data was last revised on 2017. Basophil pct 2.0 % [facility] Comment: Interpretive Data Percent cell count reference ranges are not reported, since discordance with absolute values may lead to misinterpretation of CBC data. Current Interpretive Data was last revised on 2017. Blood 11/27/2024 9:44 PM CDT 11/27/2024 10:41 PM CDT us Lee Elena MD LAB BLOOD ORDERABLES Krystyna meyers Result [facility] Department [place] [address] * (ABNORMAL) CBC with auto differential (11/27/2024 9:44 PM CDT) Pathologist [facility] WBC 6.39 3.80 - 9.90 K/cumm Hgb 10.5(L) 11.9 - 15.5 g/dL [facility] Hct 32.5(L) 35.6 - 45.5 % [facility] Plt 419(H) 150 - 400 K/cumm [facility] MPV 9.3 9.1 - 12.3 fL [facility] RBC 3.10(L) 3.90 - 5.20 M/cumm [facility] MCV 104.8(H) 81.3 - 96.4 fL [facility] MCH 33.9(H) 27.1 - 33.3 pg [facility] MCHC 32.3 32.3 - 35.7 g/dL [facility] RDW CV 18.6(H) 11.1 - 14.9 % [facility] RDW SD 71.7(H) 35.7 - 48.1 fL [facility] NRBC abs 0.00 0.00 - 0.01 K/cumm [facility] Blood 11/27/2024 9:44 PM CDT 11/27/2024 10:41 PM CDT us Lee Elena MD LAB BLOOD ORDERABLES Krystyna l Result Performing Organization Address City/[facility]/ZIP Co de Phone Number [facility] Department [place] [address] * (ABNORMAL) Vitamin D 25 hydroxy (11/27/2024 9:44 PM CDT) Pathologist [facility] Vitamin D 25-OH 27(L) 30 - 80 ng/mL Blood 11/27/2024 9:44 PM CDT 11/27/2024 10:41 PM CDT us Alex Wynn MD LAB BLOOD [place] [address] * Protime-INR (11/27/2024 9:44 PM CDT) Pathologist [facility] PT 10.2 9.7 - 13.0 sec INR 0.95 0.90 - 1.20 [facility] Comment: Interpretive data Oral anticoagulant therapeutic ranges: Venous thromboembolism prophylaxis or treatment: 2.0-3.0 CARDIOLOGY Standard range: 2.0-3.0 High-intensity range: 2.5-3.5 Refer to indication-specific guidelines for appropriate target ranges for prosthetic heart valve replacement. Current interpretive data was last revised on 2019. Blood 11/27/2024 9:44 PM CDT 11/27/2024 10:45 PM CDT Lee Elena MD LAB BLOOD ORDERABLES Krystyna l Result Performing Organization Address City/[facility]/[place] [address] * (ABNORMAL) Phosphorus (11/27/2024 9:44 PM CDT) [facility] Phosphorus, pl 6.6(H) 2.3 - 4.5 mg/dL Blood 11/27/2024 9:44 PM CDT 11/27/2024 10:41 PM CDT Lee Elena MD LAB BLOOD ORDERAB[place] [address] * Magnesium (11/27/2024 9:44 PM CDT) [facility] Magnesium 1.6 1.4 - 2.5 mg/dL Blood 11/27/2024 9:44 PM CDT 11/27/2024 10:41 PM CDT Lee Elena MD LAB BLOOD ORDERABLES Krystyna l Result Performing Organization Address [facility] Co de Phone Number [facility] [place] [address] * (ABNORMAL) Hepatic function panel (11/27/2024 9:44 PM CDT) [facility] Bilirubin, total 0.4 0.1 - 1.2 mg/dL Bilirubin, direct 0.2 0.1 - 0.3 mg/dL [facility] Protein, pl 7.3 6.5 - 8.5 g/dL [facility] Albumin 3.4(L) 3.5 - 5.0 g/dL [facility] Alk phos 133(H) 40 - 130 Units/L [facility] ALT 17 7 - 45 Units/L [facility] AST 36 10 - 45 Units/L [facility] Blood 11/27/2024 9:44 PM CDT 11/27/2024 10:41 PM CDT Lee Elena MD LAB BLOOD ORDERABLES Krystyna l Result Performing Organization Address [facility] de Phone Number [facility] Department [place] [address] * (ABNORMAL) Basic metabolic panel (11/27/2024 9:44 PM CDT) Pathologist [facility] Sodium 139 135 - 145 mmol/L Potassium, pl 4.3 3.3 - 4.9 mmol/L [facility] Chloride 101 97 - 110 mmol/L [facility] CO2 31 22 - 32 mmol/L [facility] Anion gap 7 2 - 15 mmol/L [facility] BUN 18 6 - 25 mg/dL [facility] Creatinine 0.50(L) 0.60 - 1.10 mg/dL [facility] Glucose 99 70 - 199 mg/dL [facility] Comment: Interpretive Data Fasting glucose >/= 126 [...] Calcium 10.0 8.5 - 10.3 mg/dL [facility] Blood 11/27/2024 9:44 PM CDT 11/27/2024 10:41 PM CDT Lee Elena MD LAB BLOOD ORDERABLES Krystyna meyers Result [facility] Department [place] [address] * eGFR (11/26/2024 9:38 PM CDT) eGFR [...] MD LAB BLOOD ORDERABLES Krystyna meyers Result [facility] Department [place] [address] * (ABNORMAL) Differential, auto (11/26/2024 9:38 PM CDT) Neutrophil abs 2.02 1.50 - 6.50 K/cumm Imm gran abs 0.03 0.00 - 0.10 K/cumm [facility] Lymphocyte abs 3.04 0.80 - 3.30 K/cumm [facility] Monocyte abs 0.56 0.20 - 0.80 K/cumm [facility] Eosinophil abs 0.10 0.00 - 0.50 K/cumm [facility] Basophil abs 0.11(H) 0.00 - 0.10 K/cumm [facility] Neutrophil pct 34.4 % [facility] Comment: Interpretive Data Percent cell count reference ranges are not reported, since discordance with absolute values may lead to misinterpretation of CBC data. Current Interpretive Data was last revised on 2017. Imm gran pct 0.5 % [facility] Comment: Interpretive Data Percent cell count reference ranges are not reported, since discordance with absolute values may lead to misinterpretation of CBC data. Current Interpretive Data was last revised on 2017. Lymphocyte pct 51.9 % [facility] Comment: Interpretive Data Percent cell count reference ranges are not reported, since discordance with absolute values may lead to misinterpretation of CBC data. Current Interpretive Data was last revised on 2017. Monocyte pct 9.6 % [facility] Comment: Interpretive Data Percent cell count reference ranges are not reported, since discordance with absolute values may lead to misinterpretation of CBC data. Current Interpretive Data was last revised on 2017. Eosinophil pct 1.7 % [facility] Comment: Interpretive Data Percent cell count reference ranges are not reported, since discordance with absolute values may lead to misinterpretation of CBC data. Current Interpretive Data was last revised on 2017. Basophil pct 1.9 % [facility] Comment: Interpretive Data Percent cell count reference ranges are not reported, since discordance with absolute values may lead to misinterpretation of CBC data. Current Interpretive Data was last revised on 2017. Blood 11/26/2024 9:38 PM CDT 11/26/2024 10:36 PM CDT Lee Elena MD LAB BLOOD ORDERABLES Krystyna l Result Performing Organization Address [facility] Co de Phone Number [facility] Department of [address] [place] [address] * (ABNORMAL) CBC with auto differential (11/26/2024 9:38 PM CDT) WBC 5.86 3.80 - 9.90 K/cumm Hgb 9.7(L) 11.9 - 15.5 g/dL [facility] Hct 29.7(L) 35.6 - 45.5 % [facility] Plt 398 150 - 400 K/cumm [facility] MPV 9.2 9.1 - 12.3 fL [facility] RBC 2.87(L) 3.90 - 5.20 M/cumm [facility] MCV 103.5(H) 81.3 - 96.4 fL [facility] MCH 33.8(H) 27.1 - 33.3 pg [facility] MCHC 32.7 32.3 - 35.7 g/dL [facility] RDW CV 18.7(H) 11.1 - 14.9 % [facility] RDW SD 71.5(H) 35.7 - 48.1 fL [facility] NRBC abs 0.00 0.00 - 0.01 K/cumm [facility] Blood 11/26/2024 9:38 PM CDT 11/26/2024 10:36 PM CDT eLe Elena MD LAB BLOOD ORDERABLES Krystyna l Result Performing Organization Address [facility]/ZIP Co de Phone Number [facility] [place] [address] * (ABNORMAL) Protime-INR (11/26/2024 9:38 PM CDT) PT 9.5(L) 9.7 - 13.0 sec INR 0.88(L) 0.90 - 1.20 [facility] Comment: Interpretive data Oral anticoagulant therapeutic ranges: Venous thromboembolism prophylaxis or treatment: 2.0-3.0 CARDIOLOGY Standard range: 2.0-3.0 High-intensity range: 2.5-3.5 Refer to indication-specific guidelines for appropriate target ranges for prosthetic heart valve replacement. Current interpretive data was last revised on 2019. Blood 11/26/2024 9:38 PM CDT 11/26/2024 10:43 PM CDT Lee Elena MD LAB BLOOD ORDERABLES Krystyna l Result Performing Organization Address [facility] Co de Phone Number [facility] [place] [address] * (ABNORMAL) Phosphorus (11/26/2024 9:38 PM CDT) Pathologist [facility] Phosphorus, pl 5.7(H) 2.3 - 4.5 mg/dL Blood 11/26/2024 9:38 PM CDT 11/26/2024 10:42 PM CDT Lee Elena MD LAB BLOOD ORDERAB[place] [address] * Magnesium (11/26/2024 9:38 PM CDT) [facility] Magnesium 2.1 1.4 - 2.5 mg/dL Blood 11/26/2024 9:38 PM CDT 11/26/2024 10:42 PM CDT Lee Elena MD LAB BLOOD ORDERABLES Krystyna l Result Performing Organization Address [facility] Co de Phone Number [facility] [place] [address] * (ABNORMAL) Hepatic function panel (11/26/2024 9:38 PM CDT) Pathologist [facility] Bilirubin, total 0.3 0.1 - 1.2 mg/dL Bilirubin, direct 0.2 0.1 - 0.3 mg/dL [facility] Protein, pl 6.5 6.5 - 8.5 g/dL [facility] Albumin 2.8(L) 3.5 - 5.0 g/dL [facility] Alk phos 132(H) 40 - 130 Units/L [facility] ALT 17 7 - 45 Units/L [facility] AST 38 10 - 45 Units/L [facility] Blood 11/26/2024 9:38 PM CDT 11/26/2024 10:42 PM CDT Lee Elena MD LAB BLOOD ORDERABLES Krystyna l Result Performing Organization Address [facility] de Phone Number [facility] Department [place] [address] * (ABNORMAL) Basic metabolic panel (11/26/2024 9:38 PM CDT) Pathologist [facility] Sodium 141 135 - 145 mmol/L Potassium, pl 4.1 3.3 - 4.9 mmol/L [facility] Chloride 101 97 - 110 mmol/L [facility] CO2 29 22 - 32 mmol/L [facility] Anion gap 11 2 - 15 mmol/L [facility] BUN 15 6 - 25 mg/dL [facility] Creatinine 0.54(L) 0.60 - 1.10 mg/dL [facility] Glucose 89 70 - 199 mg/dL [facility] Comment: Interpretive Data Fasting glucose >/= 126 [...] Calcium 9.1 8.5 - 10.3 mg/dL [facility] Blood 11/26/2024 9:38 PM CDT 11/26/2024 10:42 PM CDT us Lee Elena MD LAB BLOOD ORDERABLES Krystyna meyers Result [facility] Department [place] [address] * TRANSTHORACIC ECHO (TTE) LIMITED/FOLLOW UP W LTD DOPPLER/CF W CONTRAST (11/26/2024 1:54 PM CDT) Estimated EF 55-60 % CONS SCIMAGE Anatomical Region Laterality Modality Ultrasound 11/26/2024 1:05 PM CDT Narrative 11/26/2024 2:37 PM CDT [facility] [place] [address] Transthoracic Echocardiographic Report Patient Name: HAYLEY LEÓN L : 1990 (34y 9m) Gender: F Study Date: 11/26/2024 01:05:04 PM Ht(Inch): 61 Wt(Lb): 98.1 BSA: 1.38 Technology Architect: Lise De Anda Location: [id number] Order Provider: ALEX WYNN Heart Rate: 72 [...] Procedure Note Jim Malloy MD - 11/26/2024 [facility] [place] [address] Transthoracic Echocardiographic Report Patient Name: HAYLEY LEÓN L : 1990 (34y 9m) Gender: F Study Date: 11/26/2024 01:05:04 PM Ht(Inch): 61 Wt(Lb): 98.1 BSA: 1.38 Technology Architect: Lise De Anda Location: [id number] Order Provider:ALEX WYNN Heart Rate: 72 BMI: [...] * POCT glucose (11/26/2024 7:38 AM CDT) [facility] Signature Glucose, POC 107 70 - 199 mg/dL Blood 11/26/2024 7:38 AM CDT 11/26/2024 7:38 AM CDT Alex Wynn MD LAB POCT ORDERABLES - DEVICE Fi nal Result [facility] Department [place] [address] * eGFR (11/25/2024 9:19 PM CDT) [facility] eGFR >90 >=60 mL/min/1. 73 m2 Comment: [...] MD LAB BLOOD ORDERABLES Krystyna meyers Result [facility] Department [place] [address] * Differential, auto (11/25/2024 9:19 PM CDT) [facility] Neutrophil abs 1.90 1.50 - 6.50 K/cumm Imm gran abs 0.02 0.00 - 0.10 K/cumm [facility] Lymphocyte abs 2.86 0.80 - 3.30 K/cumm [facility] Monocyte abs 0.53 0.20 - 0.80 K/cumm [facility] Eosinophil abs 0.11 0.00 - 0.50 K/cumm [facility] Basophil abs 0.09 0.00 - 0.10 K/cumm [facility] Neutrophil pct 34.5 % [facility] Comment: Interpretive Data Percent cell count reference ranges are not reported, since discordance with absolute values may lead to misinterpretation of CBC data. Current Interpretive Data was last revised on 2017. Imm gran pct 0.4 % [facility] Comment: Interpretive Data Percent cell count reference ranges are not reported, since discordance with absolute values may lead to misinterpretation of CBC data. Current Interpretive Data was last revised on 2017. Lymphocyte pct 51.9 % [facility] Comment: Interpretive Data Percent cell count reference ranges are not reported, since discordance with absolute values may lead to misinterpretation of CBC data. Current Interpretive Data was last revised on 2017. Monocyte pct 9.6 % [facility] Comment: Interpretive Data Percent cell count reference ranges are not reported, since discordance with absolute values may lead to misinterpretation of CBC data. Current Interpretive Data was last revised on 2017. Eosinophil pct 2.0 % [facility] Comment: Interpretive Data Percent cell count reference ranges are not reported, since discordance with absolute values may lead to misinterpretation of CBC data. Current Interpretive Data was last revised on 2017. Basophil pct 1.6 % [facility] Comment: Interpretive Data Percent cell count reference ranges are not reported, since discordance with absolute values may lead to misinterpretation of CBC data. Current Interpretive Data was last revised on 2017. Blood 11/25/2024 9:19 PM CDT 11/25/2024 10:49 PM CDT us Lee Elena MD LAB BLOOD ORDERABLES Krystyna meyers Result [facility] Department [place] [address] * (ABNORMAL) CBC with auto differential (11/25/2024 9:19 PM CDT) WBC 5.51 3.80 - 9.90 K/cumm Hgb 10.2(L) 11.9 - 15.5 g/dL [facility] Hct 31.9(L) 35.6 - 45.5 % [facility] Plt 466(H) 150 - 400 K/cumm [facility] MPV 9.4 9.1 - 12.3 fL [facility] RBC 3.06(L) 3.90 - 5.20 M/cumm [facility] MCV 104.2(H) 81.3 - 96.4 fL [facility] MCH 33.3 27.1 - 33.3 pg [facility] MCHC 32.0(L) 32.3 - 35.7 g/dL [facility] RDW CV 19.1(H) 11.1 - 14.9 % [facility] RDW SD 72.8(H) 35.7 - 48.1 fL [facility] NRBC abs 0.00 0.00 - 0.01 K/cumm [facility] Blood 11/25/2024 9:19 PM CDT 11/25/2024 10:49 PM CDT Lee Elena MD LAB BLOOD ORDERABLES Krystyna l Result Performing Organization Address [facility] de Phone Number [facility] Department [place] [address] * Protime-INR (11/25/2024 9:19 PM CDT) PT 10.0 9.7 - 13.0 sec INR 0.93 0.90 - 1.20 [facility] Comment: Interpretive data Oral anticoagulant therapeutic ranges: Venous thromboembolism prophylaxis or treatment: 2.0-3.0 CARDIOLOGY Standard range: 2.0-3.0 High-intensity range: 2.5-3.5 Refer to indication-specific guidelines for appropriate target ranges for prosthetic heart valve replacement. Current interpretive data was last revised on 2019. Blood 11/25/2024 9:19 PM CDT 11/25/2024 10:46 PM CDT Lee Elena MD LAB BLOOD ORDERABLES Krystyna l Result Performing Organization Address [facility] Co de Phone Number CERNER [facility] [place] [address] * (ABNORMAL) Phosphorus (11/25/2024 9:19 PM CDT) [facility] Phosphorus, pl 5.2(H) 2.3 - 4.5 mg/dL Blood 11/25/2024 9:19 PM CDT 11/25/2024 10:47 PM CDT Lee Elena MD LAB BLOOD ORDERAB[place] [address] * Magnesium (11/25/2024 9:19 PM CDT) [facility] Magnesium 1.6 1.4 - 2.5 mg/dL Blood 11/25/2024 9:19 PM CDT 11/25/2024 10:47 PM CDT Lee Elena MD LAB BLOOD ORDERABLES Krystyna l Result Performing Organization Address [facility] [place] [address] * (ABNORMAL) Hepatic function panel (11/25/2024 9:19 PM CDT) [facility] Bilirubin, total 0.4 0.1 - 1.2 mg/dL Bilirubin, direct 0.2 0.1 - 0.3 mg/dL [facility] Protein, pl 6.8 6.5 - 8.5 g/dL [facility] Albumin 3.0(L) 3.5 - 5.0 g/dL [facility] Alk phos 142(H) 40 - 130 Units/L [facility] ALT 16 7 - 45 Units/L [facility] AST 35 10 - 45 Units/L [facility] Blood 11/25/2024 9:19 PM CDT 11/25/2024 10:47 PM CDT Lee Elena MD LAB BLOOD ORDERABLES Krystyna l Result [facility] Department [place] [address] * (ABNORMAL) Basic metabolic panel (11/25/2024 9:19 PM CDT) [facility] Sodium 143 135 - 145 mmol/L Potassium, pl 4.3 3.3 - 4.9 mmol/L [facility] Chloride 104 97 - 110 mmol/L [facility] CO2 29 22 - 32 mmol/L [facility] Anion gap 10 2 - 15 mmol/L [facility] BUN 16 6 - 25 mg/dL [facility] Creatinine 0.46(L) 0.60 - 1.10 mg/dL [facility] Glucose 99 70 - 199 mg/dL [facility] Comment: Interpretive Data Fasting glucose >/= 126 [...] 2022. Calcium 9.5 8.5 - 10.3 mg/dL [facility] Blood 11/25/2024 9:19 PM CDT 11/25/2024 10:47 PM CDT Lee Elena MD LAB BLOOD ORDERABLES Krystyna l Result Performing Organization Address [facility]/ZIP Co de Phone Number [facility] Department [place] [address] * eGFR (11/24/2024 9:18 PM CDT) [facility] eGFR >90 >=60 mL/min/1. 73 m2 Comment: [...] MD LAB BLOOD ORDERABLES Krystyna meyers Result [facility] [address] Department [place] [address] * Differential, auto (11/24/2024 9:18 PM CDT) [facility] Neutrophil abs 1.96 1.50 - 6.50 K/cumm Imm gran abs 0.04 0.00 - 0.10 K/cumm [facility] Lymphocyte abs 2.69 0.80 - 3.30 K/cumm [facility] Monocyte abs 0.52 0.20 - 0.80 K/cumm [facility] Eosinophil abs 0.09 0.00 - 0.50 K/cumm [facility] Basophil abs 0.08 0.00 - 0.10 K/cumm [facility] Neutrophil pct 36.4 % [facility] Comment: Interpretive Data Percent cell count reference ranges are not reported, since discordance with absolute values may lead to misinterpretation of CBC data. Current Interpretive Data was last revised on 2017. Imm gran pct 0.7 % [facility] Comment: Interpretive Data Percent cell count reference ranges are not reported, since discordance with absolute values may lead to misinterpretation of CBC data. Current Interpretive Data was last revised on 2017. Lymphocyte pct 50.0 % [facility] Comment: Interpretive Data Percent cell count reference ranges are not reported, since discordance with absolute values may lead to misinterpretation of CBC data. Current Interpretive Data was last revised on 2017. Monocyte pct 9.7 % [facility] Comment: Interpretive Data Percent cell count reference ranges are not reported, since discordance with absolute values may lead to misinterpretation of CBC data. Current Interpretive Data was last revised on 2017. Eosinophil pct 1.7 % [facility] Comment: Interpretive Data Percent cell count reference ranges are not reported, since discordance with absolute values may lead to misinterpretation of CBC data. Current Interpretive Data was last revised on 2017. Basophil pct 1.5 % [facility] Comment: Interpretive Data Percent cell count reference ranges are not reported, since discordance with absolute values may lead to misinterpretation of CBC data. Current Interpretive Data was last revised on 2017. Blood 11/24/2024 9:18 PM CDT 11/24/2024 10:00 PM CDT us Lee Elena MD LAB BLOOD ORDERABLES Krystyna meyers Result [facility] [address] Department [place] [address] * (ABNORMAL) CBC with auto differential (11/24/2024 9:18 PM CDT) WBC 5.38 3.80 - 9.90 K/cumm Hgb 9.4(L) 11.9 - 15.5 g/dL [facility] Hct 28.7(L) 35.6 - 45.5 % [facility] Plt 437(H) 150 - 400 K/cumm [facility] MPV 9.0(L) 9.1 - 12.3 fL [facility] RBC 2.80(L) 3.90 - 5.20 M/cumm [facility] MCV 102.5(H) 81.3 - 96.4 fL [facility] MCH 33.6(H) 27.1 - 33.3 pg [facility] MCHC 32.8 32.3 - 35.7 g/dL [facility] RDW CV 19.4(H) 11.1 - 14.9 % [facility] RDW SD 73.4(H) 35.7 - 48.1 fL [facility] NRBC abs 0.00 0.00 - 0.01 K/cumm [facility] Blood 11/24/2024 9:18 PM CDT 11/24/2024 10:00 PM CDT Lee Elena MD LAB BLOOD ORDERABLES Krystyna l Result Performing Organization Address [facility] de Phone Number [facility] [place] [address] * Protime-INR (11/24/2024 9:18 PM CDT) [facility] Signature PT 10.1 9.7 - 13.0 sec INR 0.94 0.90 - 1.20 [facility] Comment: Interpretive data Oral anticoagulant therapeutic ranges: Venous thromboembolism prophylaxis or treatment: 2.0-3.0 CARDIOLOGY Standard range: 2.0-3.0 High-intensity range: 2.5-3.5 Refer to indication-specific guidelines for appropriate target ranges for prosthetic heart valve replacement. Current interpretive data was last revised on 2019. Blood 11/24/2024 9:18 PM CDT 11/24/2024 10:04 PM CDT Lee Elena MD LAB BLOOD ORDERABLES Krystyna l Result Performing Organization Address [facility] Co de Phone Number [facility] of [address] [place] [address] * (ABNORMAL) Phosphorus (11/24/2024 9:18 PM CDT) Pathologist [facility] Phosphorus, pl 4.7(H) 2.3 - 4.5 mg/dL Blood 11/24/2024 9:18 PM CDT 11/24/2024 10:00 PM CDT Lee Elena MD LAB BLOOD ORDERABLES Krystyna l Result [facility] [place] [address] * Magnesium (11/24/2024 9:18 PM CDT) [facility] Magnesium 2.0 1.4 - 2.5 mg/dL Blood 11/24/2024 9:18 PM CDT 11/24/2024 10:00 PM CDT Lee Elena MD LAB BLOOD ORDERABLES Krystyna l Result Performing Organization Address [facility] Co de Phone Number [facility] [place] [address] * (ABNORMAL) Hepatic function panel (11/24/2024 9:18 PM CDT) Pathologist [facility] Bilirubin, total 0.3 0.1 - 1.2 mg/dL Bilirubin, direct 0.2 0.1 - 0.3 mg/dL [facility] Protein, pl 6.4(L) 6.5 - 8.5 g/dL [facility] Albumin 2.8(L) 3.5 - 5.0 g/dL [facility] Alk phos 148(H) 40 - 130 Units/L [facility] ALT 14 7 - 45 Units/L [facility] AST 38 10 - 45 Units/L [facility] Blood 11/24/2024 9:18 PM CDT 11/24/2024 10:00 PM CDT Lee Elena MD LAB BLOOD ORDERABLES Krystyna meyers Result [facility] Department [place] [address] * (ABNORMAL) Basic metabolic panel (11/24/2024 9:18 PM CDT) Pathologist [facility] Sodium 142 135 - 145 mmol/L Potassium, pl 4.1 3.3 - 4.9 mmol/L [facility] Chloride 104 97 - 110 mmol/L [facility] CO2 30 22 - 32 mmol/L [facility] Anion gap 8 2 - 15 mmol/L [facility] BUN 16 6 - 25 mg/dL [facility] Creatinine 0.51(L) 0.60 - 1.10 mg/dL [facility] Glucose 101 70 - 199 mg/dL [facility] Comment: Interpretive Data Fasting glucose >/= 126 [...] 2022. Calcium 9.0 8.5 - 10.3 mg/dL [facility] Blood 11/24/2024 9:18 PM CDT 11/24/2024 10:00 PM CDT Lee Elena MD LAB BLOOD ORDERABLES Krystyna meyers Result Performing Organization Address [facility]/ZIP Co de Phone Number [facility] Department [place] [address] * POCT glucose (11/24/2024 7:49 PM CDT) Glucose, POC 104 70 - 199 mg/dL Blood 11/24/2024 7:49 PM CDT 11/24/2024 7:49 PM CDT us Alex Wynn MD LAB POCT ORDERABLES - DEVICE Fi nal Result Performing Organization Address [facility] Co de Phone Number [facility] Department [place] [address] * ECG 12 lead (11/24/2024 7:01 AM CDT) Ventricular Rate EKG/Min 77 BPM [facility] Atrial Rate 77 BPM [facility] MS-Interval (MSEC) 134 ms [facility] QRS-Interval (MSEC) 70 ms [facility] QT-Interval (MSEC) 456 ms [facility] QTc 516 ms [facility] P [place] 38 degrees [facility] R [place] 36 degrees [facility] T [place] 137 degrees [facility] Diagnosis Normal sinus rhythm Low voltage QRS T wave abnormality, consider lateral ischemia Prolonged QT Abnormal ECG When compared with ECG of 23-NOV-2024 18:23, (unconfirmed) No significant change was found Confirmed by SHALINI RODRIGUEZ M.D ([id number]) on 11/27/2024 12:19:52 PM [facility] 11/24/2024 7:01 AM CDT 11/27/2024 12:19 PM CDT us Lee Elena MD ECG ORDERABLES Final Res ult Performing Organization Address [facility] Co de Phone Number [facility] * eGFR (11/23/2024 10:10 PM CDT) eGFR [...] MD LAB BLOOD ORDERABLES Krystyna meyers Result [facility] [address] Department [place] [address] * Differential, auto (11/23/2024 10:10 PM CDT) Pathologist [facility] Neutrophil abs 6.22 1.50 - 6.50 K/cumm Imm gran abs 0.05 0.00 - 0.10 K/cumm [facility] Lymphocyte abs 2.05 0.80 - 3.30 K/cumm [facility] Monocyte abs 0.66 0.20 - 0.80 K/cumm [facility] Eosinophil abs 0.10 0.00 - 0.50 K/cumm [facility] Basophil abs 0.08 0.00 - 0.10 K/cumm [facility] Neutrophil pct 67.9 % [facility] Comment: Interpretive Data Percent cell count reference ranges are not reported, since discordance with absolute values may lead to misinterpretation of CBC data. Current Interpretive Data was last revised on 2017. Imm gran pct 0.5 % [facility] Comment: Interpretive Data Percent cell count reference ranges are not reported, since discordance with absolute values may lead to misinterpretation of CBC data. Current Interpretive Data was last revised on 2017. Lymphocyte pct 22.4 % [facility] Comment: Interpretive Data Percent cell count reference ranges are not reported, since discordance with absolute values may lead to misinterpretation of CBC data. Current Interpretive Data was last revised on 2017. Monocyte pct 7.2 % [facility] Comment: Interpretive Data Percent cell count reference ranges are not reported, since discordance with absolute values may lead to misinterpretation of CBC data. Current Interpretive Data was last revised on 2017. Eosinophil pct 1.1 % [facility] Comment: Interpretive Data Percent cell count reference ranges are not reported, since discordance with absolute values may lead to misinterpretation of CBC data. Current Interpretive Data was last revised on 2017. Basophil pct 0.9 % [facility] Comment: Interpretive Data Percent cell count reference ranges are not reported, since discordance with absolute values may lead to misinterpretation of CBC data. Current Interpretive Data was last revised on 2017. Blood 11/23/2024 10:1 0 PM CDT 11/23/2024 11:09 PM CDT Lee Elena MD LAB BLOOD ORDERABLES Krystyna meyers Result [facility] [address] Department [place] [address] * (ABNORMAL) CBC with auto differential (11/23/2024 10:10 PM CDT) WBC 9.16 3.80 - 9.90 K/cumm Hgb 9.8(L) 11.9 - 15.5 g/dL [facility] Hct 29.9(L) 35.6 - 45.5 % [facility] Plt 483(H) 150 - 400 K/cumm [facility] MPV 9.2 9.1 - 12.3 fL [facility] RBC 2.92(L) 3.90 - 5.20 M/cumm [facility] MCV 102.4(H) 81.3 - 96.4 fL [facility] MCH 33.6(H) 27.1 - 33.3 pg [facility] MCHC 32.8 32.3 - 35.7 g/dL [facility] RDW CV 19.3(H) 11.1 - 14.9 % [facility] RDW SD 72.0(H) 35.7 - 48.1 fL [facility] NRBC abs 0.00 0.00 - 0.01 K/cumm [facility] Blood 11/23/2024 10:1 0 PM CDT 11/23/2024 11:09 PM CDT Lee Elena MD LAB BLOOD ORDERABLES Krystyna l Result Performing Organization Address [facility] de Phone Number [facility] [address] [place] [address] * Protime-INR (11/23/2024 10:10 PM CDT) PT 10.5 9.7 - 13.0 sec INR 0.97 0.90 - 1.20 [facility] Comment: Interpretive data Oral anticoagulant therapeutic ranges: Venous thromboembolism prophylaxis or treatment: 2.0-3.0 CARDIOLOGY Standard range: 2.0-3.0 High-intensity range: 2.5-3.5 Refer to indication-specific guidelines for appropriate target ranges for prosthetic heart valve replacement. Current interpretive data was last revised on 2019. Blood 11/23/2024 10:1 0 PM CDT 11/23/2024 11:45 PM CDT Lee Elena MD LAB BLOOD ORDERABLES Krystyna l Result Performing Organization Address [facility] de Phone Number [facility] of [address] [place] [address] * (ABNORMAL) Phosphorus (11/23/2024 10:10 PM CDT) Phosphorus, pl 5.5(H) 2.3 - 4.5 mg/dL Blood 11/23/2024 10:1 0 PM CDT 11/23/2024 11:09 PM CDT Lee Elena MD LAB BLOOD ORDERABLES Krystyna l Result [facility] Department of [address] [place] [address] * Magnesium (11/23/2024 10:10 PM CDT) Pathologist [facility] Magnesium 1.5 1.4 - 2.5 mg/dL Blood 11/23/2024 10:1 0 PM CDT 11/23/2024 11:09 PM CDT Lee Elena MD LAB BLOOD ORDERABLES Krystyna l Result Performing Organization Address [facility] de Phone Number [facility] [place] [address] * (ABNORMAL) Hepatic function panel (11/23/2024 10:10 PM CDT) Pathologist [facility] Bilirubin, total 0.4 0.1 - 1.2 mg/dL Bilirubin, direct 0.2 0.1 - 0.3 mg/dL [facility] Protein, pl 6.3(L) 6.5 - 8.5 g/dL [facility] Albumin 2.9(L) 3.5 - 5.0 g/dL [facility] Alk phos 143(H) 40 - 130 Units/L [facility] ALT 14 7 - 45 Units/L [facility] AST 37 10 - 45 Units/L [facility] Blood 11/23/2024 10:1 0 PM CDT 11/23/2024 11:09 PM CDT Lee Elena MD LAB BLOOD ORDERABLES Krystyna l Result Performing Organization Address [facility] Co de Phone Number [facility] [place] [address] * (ABNORMAL) Basic metabolic panel (11/23/2024 10:10 PM CDT) Sodium 140 135 - 145 mmol/L Potassium, pl 3.6 3.3 - 4.9 mmol/L [facility] Chloride 100 97 - 110 mmol/L [facility] CO2 31 22 - 32 mmol/L [facility] Anion gap 9 2 - 15 mmol/L [facility] BUN 15 6 - 25 mg/dL [facility] Creatinine 0.52(L) 0.60 - 1.10 mg/dL [facility] Glucose 90 70 - 199 mg/dL [facility] Comment: Interpretive Data Fasting glucose >/= 126 [...] 2022. Calcium 9.5 8.5 - 10.3 mg/dL [facility] Blood 11/23/2024 10:1 0 PM CDT 11/23/2024 11:09 PM CDT us Lee Elena MD LAB BLOOD ORDERABLES Krystyna l Result [facility] Department [place] [address] * POCT glucose (11/23/2024 9:14 PM CDT) Glucose, POC 107 70 - 199 mg/dL Blood 11/23/2024 9:14 PM CDT 11/23/2024 9:14 PM CDT us Alex Wynn MD LAB POCT ORDERABLES - DEVICE Fi nal Result [facility] Department [place] [address] * ECG 12 lead (11/23/2024 6:23 PM CDT) Ventricular Rate EKG/Min 84 BPM [facility] Atrial Rate 84 BPM [facility] MS-Interval (MSEC) 118 ms [facility] QRS-Interval (MSEC) 70 ms [facility] QT-Interval (MSEC) 426 ms [facility] QTc 503 ms [facility] P [place] 23 degrees [facility] R [place] 44 degrees [facility] T [place] 136 degrees [facility] Diagnosis Normal sinus rhythm T wave abnormality, consider lateral ischemia Prolonged QT Abnormal ECG When compared with ECG of 20-NOV-2024 13:20, No significant change was found Confirmed by SHALINI RODRIGUEZ M.D ([id number]) on 11/27/2024 12:19:17 PM [facility] 11/23/2024 6:23 PM CDT 11/27/2024 12:19 PM CDT us Lee Elena MD ECG ORDERABLES Final Res ult [facility] * eGFR (11/22/2024 9:37 PM CDT) eGFR [...] MD LAB BLOOD ORDERABLES Krystyna mira Result [facility] [address] Department [place] [address] * (ABNORMAL) Differential, auto (11/22/2024 9:37 PM CDT) Pathologist [facility] Neutrophil abs 3.27 1.50 - 6.50 K/cumm Imm gran abs 0.06 0.00 - 0.10 K/cumm [facility] Lymphocyte abs 2.86 0.80 - 3.30 K/cumm [facility] Monocyte abs 0.70 0.20 - 0.80 K/cumm [facility] Eosinophil abs 0.15 0.00 - 0.50 K/cumm [facility] Basophil abs 0.11(H) 0.00 - 0.10 K/cumm [facility] Neutrophil pct 45.8 % [facility] Comment: Interpretive Data Percent cell count reference ranges are not reported, since discordance with absolute values may lead to misinterpretation of CBC data. Current Interpretive Data was last revised on 2017. Imm gran pct 0.8 % [facility] Comment: Interpretive Data Percent cell count reference ranges are not reported, since discordance with absolute values may lead to misinterpretation of CBC data. Current Interpretive Data was last revised on 2017. Lymphocyte pct 40.0 % [facility] Comment: Interpretive Data Percent cell count reference ranges are not reported, since discordance with absolute values may lead to misinterpretation of CBC data. Current Interpretive Data was last revised on 2017. Monocyte pct 9.8 % [facility] Comment: Interpretive Data Percent cell count reference ranges are not reported, since discordance with absolute values may lead to misinterpretation of CBC data. Current Interpretive Data was last revised on 2017. Eosinophil pct 2.1 % [facility] Comment: Interpretive Data Percent cell count reference ranges are not reported, since discordance with absolute values may lead to misinterpretation of CBC data. Current Interpretive Data was last revised on 2017. Basophil pct 1.5 % [facility] Comment: Interpretive Data Percent cell count reference ranges are not reported, since discordance with absolute values may lead to misinterpretation of CBC data. Current Interpretive Data was last revised on 2017. Blood 11/22/2024 9:37 PM CDT 11/22/2024 10:34 PM CDT us Lee Elena MD LAB BLOOD ORDERABLES Krystyna meyers Result [facility] [address] Department [place] [address] * (ABNORMAL) CBC with auto differential (11/22/2024 9:37 PM CDT) WBC 7.15 3.80 - 9.90 K/cumm Hgb 9.4(L) 11.9 - 15.5 g/dL [facility] Hct 28.9(L) 35.6 - 45.5 % [facility] Plt 542(H) 150 - 400 K/cumm [facility] MPV 9.4 9.1 - 12.3 fL [facility] RBC 2.81(L) 3.90 - 5.20 M/cumm [facility] MCV 102.8(H) 81.3 - 96.4 fL [facility] MCH 33.5(H) 27.1 - 33.3 pg [facility] MCHC 32.5 32.3 - 35.7 g/dL [facility] RDW CV 19.6(H) 11.1 - 14.9 % [facility] RDW SD 73.3(H) 35.7 - 48.1 fL [facility] NRBC abs 0.00 0.00 - 0.01 K/cumm [facility] Blood 11/22/2024 9:37 PM CDT 11/22/2024 10:34 PM CDT Lee Elena MD LAB BLOOD ORDERABLES Krystyna l Result Performing Organization Address [facility] Co de Phone Number [facility] [place] [address] * Protime-INR (11/22/2024 9:37 PM CDT) [facility] PT 10.1 9.7 - 13.0 sec INR 0.94 0.90 - 1.20 [facility] Comment: Interpretive data Oral anticoagulant therapeutic ranges: Venous thromboembolism prophylaxis or treatment: 2.0-3.0 CARDIOLOGY Standard range: 2.0-3.0 High-intensity range: 2.5-3.5 Refer to indication-specific guidelines for appropriate target ranges for prosthetic heart valve replacement. Current interpretive data was last revised on 2019. Blood 11/22/2024 9:37 PM CDT 11/22/2024 10:54 PM CDT Lee Elena MD LAB BLOOD ORDERABLES Krystyna l Result Performing Organization Address [facility] Co de Phone Number [facility] Department of [address] [place] [address] * (ABNORMAL) Phosphorus (11/22/2024 9:37 PM CDT) [facility] Phosphorus, pl 4.9(H) 2.3 - 4.5 mg/dL Blood 11/22/2024 9:37 PM CDT 11/22/2024 10:33 PM CDT Lee Elena MD LAB BLOOD ORDERABLES Krystyna l Result Performing Organization Address City/[facility] [place] [address] * Magnesium (11/22/2024 9:37 PM CDT) [facility] Magnesium 1.6 1.4 - 2.5 mg/dL Blood 11/22/2024 9:37 PM CDT 11/22/2024 10:33 PM CDT Lee Elena MD LAB BLOOD ORDERABLES Krystyna l Result Performing Organization Address [facility] Co de Phone Number [facility] [place] [address] * (ABNORMAL) Hepatic function panel (11/22/2024 9:37 PM CDT) [facility] Bilirubin, total 0.4 0.1 - 1.2 mg/dL Bilirubin, direct 0.2 0.1 - 0.3 mg/dL [facility] Protein, pl 6.0(L) 6.5 - 8.5 g/dL [facility] Albumin 2.6(L) 3.5 - 5.0 g/dL [facility] Alk phos 163(H) 40 - 130 Units/L [facility] ALT 12 7 - 45 Units/L [facility] AST 41 10 - 45 Units/L [facility] Blood 11/22/2024 9:37 PM CDT 11/22/2024 10:33 PM CDT Lee Elena MD LAB BLOOD ORDERABLES Krystyna l Result Performing Organization Address [facility] de Phone Number [facility] [address] [place] [address] * (ABNORMAL) Basic metabolic panel (11/22/2024 9:37 PM CDT) [facility] Sodium 138 135 - 145 mmol/L Potassium, pl 4.3 3.3 - 4.9 mmol/L [facility] Chloride 97 97 - 110 mmol/L [facility] CO2 32 22 - 32 mmol/L [facility] Anion gap 9 2 - 15 mmol/L [facility] BUN 17 6 - 25 mg/dL [facility] Creatinine 0.52(L) 0.60 - 1.10 mg/dL [facility] Glucose 104 70 - 199 mg/dL [facility] Comment: Interpretive Data Fasting glucose >/= 126 [...] 2022. Calcium 8.8 8.5 - 10.3 mg/dL [facility] Blood 11/22/2024 9:37 PM CDT 11/22/2024 10:33 PM CDT Lee Elena MD LAB BLOOD ORDERABLES Krystyna meyers Result [facility] [address] [facility] Department [place] [address] * eGFR (11/21/2024 10:49 PM CDT) eGFR [...] MD LAB BLOOD ORDERABLES Krystyna meyers Result [facility] [address] Department [place] [address] * (ABNORMAL) Differential, auto (11/21/2024 10:49 PM CDT) Neutrophil abs 2.76 1.50 - 6.50 K/cumm Imm gran abs 0.05 0.00 - 0.10 K/cumm [facility] Lymphocyte abs 3.11 0.80 - 3.30 K/cumm [facility] Monocyte abs 0.61 0.20 - 0.80 K/cumm [facility] Eosinophil abs 0.17 0.00 - 0.50 K/cumm [facility] Basophil abs 0.14(H) 0.00 - 0.10 K/cumm [facility] Neutrophil pct 40.4 % [facility] Comment: Interpretive Data Percent cell count reference ranges are not reported, since discordance with absolute values may lead to misinterpretation of CBC data. Current Interpretive Data was last revised on 2017. Imm gran pct 0.7 % [facility] Comment: Interpretive Data Percent cell count reference ranges are not reported, since discordance with absolute values may lead to misinterpretation of CBC data. Current Interpretive Data was last revised on 2017. Lymphocyte pct 45.5 % [facility] Comment: Interpretive Data Percent cell count reference ranges are not reported, since discordance with absolute values may lead to misinterpretation of CBC data. Current Interpretive Data was last revised on 2017. Monocyte pct 8.9 % [facility] Comment: Interpretive Data Percent cell count reference ranges are not reported, since discordance with absolute values may lead to misinterpretation of CBC data. Current Interpretive Data was last revised on 2017. Eosinophil pct 2.5 % [facility] Comment: Interpretive Data Percent cell count reference ranges are not reported, since discordance with absolute values may lead to misinterpretation of CBC data. Current Interpretive Data was last revised on 2017. Basophil pct 2.0 % [facility] Comment: Interpretive Data Percent cell count reference ranges are not reported, since discordance with absolute values may lead to misinterpretation of CBC data. Current Interpretive Data was last revised on 2017. Blood 11/21/2024 10:4 9 PM CDT 11/22/2024 12:33 AM CDT us Lee Elena MD LAB BLOOD ORDERABLES Krystyna meyers Result [facility] [address] Department [place] [address] * (ABNORMAL) CBC with auto differential (11/21/2024 10:49 PM CDT) WBC 6.84 3.80 - 9.90 K/cumm Hgb 10.1(L) 11.9 - 15.5 g/dL [facility] Hct 30.3(L) 35.6 - 45.5 % [facility] Plt 610(H) 150 - 400 K/cumm [facility] MPV 9.3 9.1 - 12.3 fL [facility] RBC 2.98(L) 3.90 - 5.20 M/cumm [facility] MCV 101.7(H) 81.3 - 96.4 fL [facility] MCH 33.9(H) 27.1 - 33.3 pg [facility] MCHC 33.3 32.3 - 35.7 g/dL [facility] RDW CV 19.7(H) 11.1 - 14.9 % [facility] RDW SD 71.9(H) 35.7 - 48.1 fL [facility] NRBC abs 0.00 0.00 - 0.01 K/cumm [facility] Blood 11/21/2024 10:4 9 PM CDT 11/22/2024 12:33 AM CDT Lee Elena MD LAB BLOOD ORDERABLES Krystyna l Result Performing Organization Address City/[facility] Co de Phone Number [facility] [place] [address] * Protime-INR (11/21/2024 10:49 PM CDT) PT 10.7 9.7 - 13.0 sec INR 0.99 0.90 - 1.20 [facility] Comment: Interpretive data Oral anticoagulant therapeutic ranges: Venous thromboembolism prophylaxis or treatment: 2.0-3.0 CARDIOLOGY Standard range: 2.0-3.0 High-intensity range: 2.5-3.5 Refer to indication-specific guidelines for appropriate target ranges for prosthetic heart valve replacement. Current interpretive data was last revised on 2019. Blood 11/21/2024 10:4 9 PM CDT 11/22/2024 12:42 AM CDT Lee Elena MD LAB BLOOD ORDERABLES Krystyna l Result Performing Organization Address [facility] Co de Phone Number [facility] [address] [place] [address] * (ABNORMAL) Phosphorus (11/21/2024 10:49 PM CDT) Pathologist [facility] Phosphorus, pl 5.4(H) 2.3 - 4.5 mg/dL Blood 11/21/2024 10:4 9 PM CDT 11/22/2024 12:32 AM CDT Lee Elena MD LAB BLOOD ORDERABLES Krystyna l Result Performing Organization Address City/[facility] Co de Phone Number [facility] [place] [address] * Magnesium (11/21/2024 10:49 PM CDT) Pathologist [facility] Magnesium 1.8 1.4 - 2.5 mg/dL Blood 11/21/2024 10:4 9 PM CDT 11/22/2024 12:32 AM CDT Lee Elena MD LAB BLOOD ORDERABLES Krystyna l Result Performing Organization Address [facility] de Phone Number [facility] [address] [place] [address] * (ABNORMAL) Hepatic function panel (11/21/2024 10:49 PM CDT) [facility] Bilirubin, total 0.4 0.1 - 1.2 mg/dL Bilirubin, direct 0.3 0.1 - 0.3 mg/dL [facility] Protein, pl 6.2(L) 6.5 - 8.5 g/dL [facility] Albumin 2.4(L) 3.5 - 5.0 g/dL [facility] Alk phos 173(H) 40 - 130 Units/L [facility] ALT 12 7 - 45 Units/L [facility] AST 41 10 - 45 Units/L [facility] Blood 11/21/2024 10:4 9 PM CDT 11/22/2024 12:32 AM CDT Lee Elena MD LAB BLOOD ORDERABLES Krystyna l Result Performing Organization Address [facility] de Phone Number [facility] [address] [place] [address] * (ABNORMAL) Basic metabolic panel (11/21/2024 10:49 PM CDT) [facility] Sodium 141 135 - 145 mmol/L Potassium, pl 3.9 3.3 - 4.9 mmol/L [facility] Chloride 100 97 - 110 mmol/L [facility] CO2 31 22 - 32 mmol/L [facility] Anion gap 10 2 - 15 mmol/L [facility] BUN 16 6 - 25 mg/dL [facility] Creatinine 0.39(L) 0.60 - 1.10 mg/dL [facility] Glucose 96 70 - 199 mg/dL [facility] Comment: Interpretive Data Fasting glucose >/= 126 [...] 2022. Calcium 9.1 8.5 - 10.3 mg/dL [facility] Blood 11/21/2024 10:4 9 PM CDT 11/22/2024 12:32 AM CDT Lee Elena MD LAB BLOOD ORDERABLES Krystyna l Result Performing Organization Address City/[facility]/ZIP Co de Phone Number [facility] Department [place] [address] * Potassium, whole blood (11/20/2024 10:45 PM CDT) Pathologist [facility] Potassium, bld 4.0 3.3 - 4.9 mmol/L Blood 11/20/2024 10:4 5 PM CDT 11/20/2024 10:51 PM CDT us Martita Hussein MD LAB BLOOD ORDERABLE S Final Result [facility] Department of [address] [place] [address] * eGFR (11/20/2024 7:07 PM CDT) Pathologist [facility] eGFR >90 >=60 mL/min/1. 73 m2 [...] MD LAB BLOOD ORDERABLES Krystyna meyers Result [facility] [address] Department [place] [address] * Differential, auto (11/20/2024 7:07 PM CDT) Neutrophil abs 3.09 1.50 - 6.50 K/cumm Imm gran abs 0.09 0.00 - 0.10 K/cumm [facility] Lymphocyte abs 3.30 0.80 - 3.30 K/cumm [facility] Monocyte abs 0.65 0.20 - 0.80 K/cumm [facility] Eosinophil abs 0.15 0.00 - 0.50 K/cumm [facility] Basophil abs 0.09 0.00 - 0.10 K/cumm [facility] Neutrophil pct 42.0 % [facility] Comment: Interpretive Data Percent cell count reference ranges are not reported, since discordance with absolute values may lead to misinterpretation of CBC data. Current Interpretive Data was last revised on 2017. Imm gran pct 1.2 % [facility] Comment: Interpretive Data Percent cell count reference ranges are not reported, since discordance with absolute values may lead to misinterpretation of CBC data. Current Interpretive Data was last revised on 2017. Lymphocyte pct 44.8 % [facility] Comment: Interpretive Data Percent cell count reference ranges are not reported, since discordance with absolute values may lead to misinterpretation of CBC data. Current Interpretive Data was last revised on 2017. Monocyte pct 8.8 % [facility] Comment: Interpretive Data Percent cell count reference ranges are not reported, since discordance with absolute values may lead to misinterpretation of CBC data. Current Interpretive Data was last revised on 2017. Eosinophil pct 2.0 % [facility] Comment: Interpretive Data Percent cell count reference ranges are not reported, since discordance with absolute values may lead to misinterpretation of CBC data. Current Interpretive Data was last revised on 2017. Basophil pct 1.2 % [facility] Comment: Interpretive Data Percent cell count reference ranges are not reported, since discordance with absolute values may lead to misinterpretation of CBC data. Current Interpretive Data was last revised on 2017. Blood 11/20/2024 7:07 PM CDT 11/20/2024 7:32 PM CDT Lee Elena MD LAB BLOOD ORDERABLES Krystyna meyers Result [facility] [address] Department [place] [address] * (ABNORMAL) CBC with auto differential (11/20/2024 7:07 PM CDT) WBC 7.37 3.80 - 9.90 K/cumm Hgb 10.1(L) 11.9 - 15.5 g/dL [facility] Hct 31.3(L) 35.6 - 45.5 % [facility] Plt 651(H) 150 - 400 K/cumm [facility] MPV 9.4 9.1 - 12.3 fL [facility] RBC 3.07(L) 3.90 - 5.20 M/cumm [facility] MCV 102.0(H) 81.3 - 96.4 fL [facility] MCH 32.9 27.1 - 33.3 pg [facility] MCHC 32.3 32.3 - 35.7 g/dL [facility] RDW CV 20.5(H) 11.1 - 14.9 % [facility] RDW SD 76.1(H) 35.7 - 48.1 fL [facility] NRBC abs 0.00 0.00 - 0.01 K/cumm [facility] Blood 11/20/2024 7:07 PM CDT 11/20/2024 7:32 PM CDT us Lee Elena MD LAB BLOOD ORDERABLES Krystyna l Result Performing Organization Address [facility] Co de Phone Number [facility] [address] [place] [address] * (ABNORMAL) aPTT (11/20/2024 7:07 PM CDT) aPTT 52(H) 28 - 38 sec Comment: Interpretive Data Heparin therapeutic range: 66.0 - 100.0 seconds. Range based on correlation with therapeutic heparin activity range of 0.3 - 0.7 Units/mL. Current interpretive data was last revised on 2023. Blood 11/20/2024 7:07 PM CDT 11/20/2024 7:38 PM CDT Narrative [facility] - 11/20/2024 7:48 PM CDT Baseline prior to enoxaparin initiation. us Alex Wynn MD LAB BLOOD ORDERABLES Final Resu lt Performing Organization Address City/[facility]/ZIP Co de Phone Number [facility] [address] [place] [address] * Protime-INR (11/20/2024 7:07 PM CDT) PT 11.1 9.7 - 13.0 sec INR 1.03 0.90 - 1.20 [facility] Comment: Interpretive data Oral anticoagulant therapeutic ranges: Venous thromboembolism prophylaxis or treatment: 2.0-3.0 CARDIOLOGY Standard range: 2.0-3.0 High-intensity range: 2.5-3.5 Refer to indication-specific guidelines for appropriate target ranges for prosthetic heart valve replacement. Current interpretive data was last revised on 2019. Blood 11/20/2024 7:07 PM CDT 11/20/2024 7:34 PM CDT Lee Elena MD LAB BLOOD ORDERABLES Krystyna l Result Performing Organization Address City/[facility] Co de Phone Number [facility] [address] [place] [address] * (ABNORMAL) Phosphorus (11/20/2024 7:07 PM CDT) Phosphorus, pl 5.4(H) 2.3 - 4.5 mg/dL Blood 11/20/2024 7:07 PM CDT 11/20/2024 7:32 PM CDT Lee Elena MD LAB BLOOD ORDERABLES Krystyna l Result Performing Organization Address [facility] Co de Phone Number [facility] [address] [place] [address] * Magnesium (11/20/2024 7:07 PM CDT) Magnesium 1.7 1.4 - 2.5 mg/dL Blood 11/20/2024 7:07 PM CDT 11/20/2024 7:32 PM CDT Lee Elena MD LAB BLOOD ORDERABLES Krystyna l Result Performing Organization Address City/[facility] Co de Phone Number [facility] [place] [address] * (ABNORMAL) Hepatic function panel (11/20/2024 7:07 PM CDT) [facility] Bilirubin, total 0.4 0.1 - 1.2 mg/dL Bilirubin, direct 0.2 0.1 - 0.3 mg/dL [facility] Comment:Hemolyzed; result ma y be falsely decreased Protein, pl 6.3(L) 6.5 - 8.5 g/dL [facility] Albumin 2.6(L) 3.5 - 5.0 g/dL [facility] Alk phos 193(H) 40 - 130 Units/L [facility] ALT 12 7 - 45 Units/L [facility] AST 55(H) 10 - 45 Units/L [facility] Comment:Hemolyzed; result ma y be falsely elevated Blood 11/20/2024 7:07 PM CDT 11/20/2024 7:32 PM CDT us Lee Elena MD LAB BLOOD ORDERABLES Krystyna meyers Result [facility] [address] Department [place] [address] * Basic metabolic panel (11/20/2024 7:07 PM CDT) [facility] Sodium 142 135 - 145 mmol/L Potassium, pl 4.3 3.3 - 4.9 mmol/L [facility] Comment:Hemolyzed; Potassium value may be falsely elevated by as much as 0.3-0.5 mmol/L. Suggest redraw and reanalysis. Chloride 103 97 - 110 mmol/L [facility] CO2 27 22 - 32 mmol/L [facility] Anion gap 12 2 - 15 mmol/L [facility] BUN 16 6 - 25 mg/dL [facility] Creatinine 0.66 0.60 - 1.10 mg/dL [facility] Glucose 95 70 - 199 mg/dL [facility] Comment: Interpretive Data Fasting glucose >/= 126 [...] 2022. Calcium 9.0 8.5 - 10.3 mg/dL [facility] Blood 11/20/2024 7:07 PM CDT 11/20/2024 7:32 PM CDT us Lee Elena MD LAB BLOOD ORDERABLES Krystyna l Result Performing Organization Address City/[facility]/ZIP Co de Phone Number [facility] [address] Department [place] [address] * ECG 12 lead (11/20/2024 1:20 PM CDT) Pathologist [facility] Ventricular Rate EKG/Min 78 BPM [facility] Atrial Rate 78 BPM [facility] MS-Interval (MSEC) 126 ms [facility] QRS-Interval (MSEC) 68 ms [facility] QT-Interval (MSEC) 448 ms [facility] QTc 510 ms [facility] P [place] 22 degrees [facility] R [place] 55 degrees [facility] T [place] 124 degrees [facility] Diagnosis Normal sinus rhythm T wave abnormality, consider lateral ischemia Prolonged QT Abnormal ECG When compared with ECG of 18-NOV-2024 13:40, (unconfirmed) Nonspecific T wave abnormality no longer evident in Inferior leads T wave inversion less evident in Lateral leads Confirmed by SHALINI RODRIGUEZ M.D ([id number]) on 11/21/2024 9:46:31 AM [facility] 11/20/2024 1:20 PM CDT 11/21/2024 9:46 AM CDT us Lee Elena MD ECG ORDERABLES Final Res ult [facility] * [facility] Specimen Tracking Order Blood (11/20/2024 10:37 AM CDT) Pathologist [facility] Genomics Tracking Order Received Blood 11/20/2024 10:3 7 AM CDT 11/20/2024 11:49 AM CDT Narrative [facility] - 11/29/2024 1:58 PM CDT Please read the [facility] Epic requisition for specimen collection requirements. Akash Sharma MD LAB BODY FLUIDS AND STOOLS ORDERABLES Final Result [facility] [address] Department [place] [address] * Genomics ([facility]) (11/20/2024 12:00 AM CDT) Blood (Peripheral Blood For Pathologist Review) 11/20/2024 11/20/2024 Narrative [facility] - 12/19/2024 12:31 PM CDT REPORT IMAGES AND/OR SCANNED DOCUMENTS ONLY VIEWABLE IN PDF FORMAT Akash Sharma MD LAB GENETIC TEST ING Edited Result - Final Performing Organization Address City/[facility]/ZIP Co de Phone Number [facility] [address] [place] [address] * eGFR (11/19/2024 8:20 PM CDT) [facility] eGFR >90 >=60 mL/min/1. 73 m2 Comment: [...] MD LAB BLOOD ORDERABLES Krystyna meyers Result [facility] [address] Department [place] [address] * Differential, auto (11/19/2024 8:20 PM CDT) Neutrophil abs 3.74 1.50 - 6.50 K/cumm Imm gran abs 0.06 0.00 - 0.10 K/cumm [facility] Lymphocyte abs 2.61 0.80 - 3.30 K/cumm [facility] Monocyte abs 0.72 0.20 - 0.80 K/cumm [facility] Eosinophil abs 0.09 0.00 - 0.50 K/cumm [facility] Basophil abs 0.08 0.00 - 0.10 K/cumm [facility] Neutrophil pct 51.2 % [facility] Comment: Interpretive Data Percent cell count reference ranges are not reported, since discordance with absolute values may lead to misinterpretation of CBC data. Current Interpretive Data was last revised on 2017. Imm gran pct 0.8 % [facility] Comment: Interpretive Data Percent cell count reference ranges are not reported, since discordance with absolute values may lead to misinterpretation of CBC data. Current Interpretive Data was last revised on 2017. Lymphocyte pct 35.8 % [facility] Comment: Interpretive Data Percent cell count reference ranges are not reported, since discordance with absolute values may lead to misinterpretation of CBC data. Current Interpretive Data was last revised on 2017. Monocyte pct 9.9 % [facility] Comment: Interpretive Data Percent cell count reference ranges are not reported, since discordance with absolute values may lead to misinterpretation of CBC data. Current Interpretive Data was last revised on 2017. Eosinophil pct 1.2 % [facility] Comment: Interpretive Data Percent cell count reference ranges are not reported, since discordance with absolute values may lead to misinterpretation of CBC data. Current Interpretive Data was last revised on 2017. Basophil pct 1.1 % [facility] Comment: Interpretive Data Percent cell count reference ranges are not reported, since discordance with absolute values may lead to misinterpretation of CBC data. Current Interpretive Data was last revised on 2017. Blood 11/19/2024 8:20 PM CDT 11/19/2024 9:33 PM CDT us Lee Elena MD LAB BLOOD ORDERABLES Krystyna meyers Result [facility] [address] Department [place] [address] * (ABNORMAL) CBC with auto differential (11/19/2024 8:20 PM CDT) WBC 7.30 3.80 - 9.90 K/cumm Hgb 9.1(L) 11.9 - 15.5 g/dL [facility] Hct 27.7(L) 35.6 - 45.5 % [facility] Plt 627(H) 150 - 400 K/cumm [facility] MPV 9.9 9.1 - 12.3 fL [facility] RBC 2.75(L) 3.90 - 5.20 M/cumm [facility] MCV 100.7(H) 81.3 - 96.4 fL [facility] MCH 33.1 27.1 - 33.3 pg [facility] MCHC 32.9 32.3 - 35.7 g/dL [facility] RDW CV 20.7(H) 11.1 - 14.9 % [facility] RDW SD 75.5(H) 35.7 - 48.1 fL [facility] NRBC abs 0.00 0.00 - 0.01 K/cumm [facility] Blood 11/19/2024 8:20 PM CDT 11/19/2024 9:33 PM CDT Lee Elena MD LAB BLOOD ORDERABLES Krystyna l Result Performing Organization Address [facility] Co de Phone Number [facility] [address] [place] [address] * Protime-INR (11/19/2024 8:20 PM CDT) PT 10.6 9.7 - 13.0 sec INR 0.98 0.90 - 1.20 [facility] Comment: Interpretive data Oral anticoagulant therapeutic ranges: Venous thromboembolism prophylaxis or treatment: 2.0-3.0 CARDIOLOGY Standard range: 2.0-3.0 High-intensity range: 2.5-3.5 Refer to indication-specific guidelines for appropriate target ranges for prosthetic heart valve replacement. Current interpretive data was last revised on 2019. Blood 11/19/2024 8:20 PM CDT 11/19/2024 9:36 PM CDT Lee Elena MD LAB BLOOD ORDERABLES Krystyna l Result Performing Organization Address [facility] Co de Phone Number [facility] [address] [place] [address] * Phosphorus (11/19/2024 8:20 PM CDT) Phosphorus, pl 4.2 2.3 - 4.5 mg/dL Blood 11/19/2024 8:20 PM CDT 11/19/2024 9:32 PM CDT Lee Elena MD LAB BLOOD ORDERABLES Krystyna l Result Performing Organization Address City/[facility] Co de Phone Number [facility] [address] [place] [address] * Magnesium (11/19/2024 8:20 PM CDT) [facility] Magnesium 2.0 1.4 - 2.5 mg/dL Blood 11/19/2024 8:20 PM CDT 11/19/2024 9:32 PM CDT Lee Elena MD LAB BLOOD ORDERABLES Krystyna l Result Performing Organization Address [facility] Co de Phone Number [facility] Department of [place] [address] * (ABNORMAL) Hepatic function panel (11/19/2024 8:20 PM CDT) [facility] Bilirubin, total 0.4 0.1 - 1.2 mg/dL Bilirubin, direct 0.3 0.1 - 0.3 mg/dL [facility] Protein, pl 5.7(L) 6.5 - 8.5 g/dL [facility] Albumin 2.2(L) 3.5 - 5.0 g/dL [facility] Alk phos 189(H) 40 - 130 Units/L [facility] ALT 12 7 - 45 Units/L [facility] AST 49(H) 10 - 45 Units/L [facility] Blood 11/19/2024 8:20 PM CDT 11/19/2024 9:32 PM CDT Lee Elean MD LAB BLOOD ORDERABLES Krystyna l Result Performing Organization Address [facility] Co de Phone Number [facility] Department of [address] [place] [address] * (ABNORMAL) Basic metabolic panel (11/19/2024 8:20 PM CDT) [facility] Sodium 138 135 - 145 mmol/L Potassium, pl 4.2 3.3 - 4.9 mmol/L [facility] Chloride 103 97 - 110 mmol/L [facility] CO2 28 22 - 32 mmol/L [facility] Anion gap 7 2 - 15 mmol/L [facility] BUN 15 6 - 25 mg/dL [facility] Creatinine 0.40(L) 0.60 - 1.10 mg/dL [facility] Glucose 93 70 - 199 mg/dL [facility] Comment: Interpretive Data Fasting glucose >/= 126 [...] 2022. Calcium 8.4(L) 8.5 - 10.3 mg/dL [facility] Blood 11/19/2024 8:20 PM CDT 11/19/2024 9:32 PM CDT us Lee Elena MD LAB BLOOD ORDERABLES Krystyna l Result [facility] Department [place] [address] * POCT glucose (11/19/2024 7:53 AM CDT) Glucose, POC 112 70 - 199 mg/dL Blood 11/19/2024 7:53 AM CDT 11/19/2024 7:53 AM CDT us Alex Wynn MD LAB POCT ORDERABLES - DEVICE Fi nal Result [facility] Department of [address] [place] [address] * (ABNORMAL) Differential, auto (11/18/2024 9:53 PM CDT) Neutrophil abs 5.36 1.50 - 6.50 K/cumm Imm gran abs 0.06 0.00 - 0.10 K/cumm [facility] Lymphocyte abs 2.35 0.80 - 3.30 K/cumm [facility] Monocyte abs 0.81(H) 0.20 - 0.80 K/cumm [facility] Eosinophil abs 0.17 0.00 - 0.50 K/cumm [facility] Basophil abs 0.07 0.00 - 0.10 K/cumm [facility] Neutrophil pct 60.8 % [facility] Comment: Interpretive Data Percent cell count reference ranges are not reported, since discordance with absolute values may lead to misinterpretation of CBC data. Current Interpretive Data was last revised on 2017. Imm gran pct 0.7 % [facility] Comment: Interpretive Data Percent cell count reference ranges are not reported, since discordance with absolute values may lead to misinterpretation of CBC data. Current Interpretive Data was last revised on 2017. Lymphocyte pct 26.6 % [facility] Comment: Interpretive Data Percent cell count reference ranges are not reported, since discordance with absolute values may lead to misinterpretation of CBC data. Current Interpretive Data was last revised on 2017. Monocyte pct 9.2 % [facility] Comment: Interpretive Data Percent cell count reference ranges are not reported, since discordance with absolute values may lead to misinterpretation of CBC data. Current Interpretive Data was last revised on 2017. Eosinophil pct 1.9 % [facility] Comment: Interpretive Data Percent cell count reference ranges are not reported, since discordance with absolute values may lead to misinterpretation of CBC data. Current Interpretive Data was last revised on 2017. Basophil pct 0.8 % [facility] Comment: Interpretive Data Percent cell count reference ranges are not reported, since discordance with absolute values may lead to misinterpretation of CBC data. Current Interpretive Data was last revised on 2017. Blood 11/18/2024 9:53 PM CDT 11/18/2024 11:34 PM CDT Lee Elena MD LAB BLOOD ORDERABLES Krystyna meyers Result [facility] Department [place] [address] * (ABNORMAL) CBC with auto differential (11/18/2024 9:53 PM CDT) WBC 8.82 3.80 - 9.90 K/cumm Hgb 9.2(L) 11.9 - 15.5 g/dL [facility] Hct 27.9(L) 35.6 - 45.5 % [facility] Plt 649(H) 150 - 400 K/cumm [facility] MPV 9.9 9.1 - 12.3 fL [facility] RBC 2.79(L) 3.90 - 5.20 M/cumm [facility] MCV 100.0(H) 81.3 - 96.4 fL [facility] MCH 33.0 27.1 - 33.3 pg [facility] MCHC 33.0 32.3 - 35.7 g/dL [facility] RDW CV 20.7(H) 11.1 - 14.9 % [facility] RDW SD 74.5(H) 35.7 - 48.1 fL [facility] NRBC abs 0.00 0.00 - 0.01 K/cumm [facility] Blood 11/18/2024 9:53 PM CDT 11/18/2024 11:34 PM CDT Lee Elena MD LAB BLOOD ORDERABLES Krystyna l Result [facility] Department [place] [address] * Blood culture Blood (11/18/2024 9:53 PM CDT) Report Final Report: No growth Blood 11/18/2024 9:53 PM CDT 11/19/2024 1:12 AM CDT Narrative [facility] - 11/23/2024 7:00 AM CDT Collection->Peripheral 1. [...] performance characteristics have been verified by the [facility]. For questions about this culture, contact the Microbiology Laboratory at [phone]. Interpretive data was last revised on 24. Lee Elena MD LAB MICROBIOLOGY - GENERA L ORDERABLES Final Result [facility] [address] Department [place] [address] * Protime-INR (11/18/2024 9:53 PM CDT) PT 10.8 9.7 - 13.0 sec INR 1.00 0.90 - 1.20 [facility] Comment: Interpretive data Oral anticoagulant [...] ORDERABLES Krystyna l Result Performing Organization Address [facility] Co de Phone Number [facility] Department [place] [address] * eGFR (11/18/2024 3:57 PM CDT) eGFR [...] 3:57 PM CDT 11/18/2024 4:11 PM CDT eLe Elena MD LAB BLOOD ORDERABLES Krystyna l Result Performing Organization Address [facility] Co de Phone Number SHONA [facility] Department [place] [address] * (ABNORMAL) Phosphorus (11/18/2024 3:57 PM CDT) Phosphorus, pl 4.8(H) 2.3 - 4.5 mg/dL Blood 11/18/2024 3:57 PM CDT 11/18/2024 4:11 PM CDT Lee Elena MD LAB BLOOD ORDERABLES Krystyna l Result Performing Organization Address City/[facility]/ZIP Co de Phone Number [facility] Department of [address] [place] [address] * Magnesium (11/18/2024 3:57 PM CDT) [facility] Magnesium 1.6 1.4 - 2.5 mg/dL Blood 11/18/2024 3:57 PM CDT 11/18/2024 4:11 PM CDT us Lee Elena MD LAB BLOOD ORDERABLES Krystyna l Result Performing Organization Address [facility] de Phone Number [facility] [place] [address] * (ABNORMAL) Hepatic function panel (11/18/2024 3:57 PM CDT) [facility] Bilirubin, total 0.5 0.1 - 1.2 mg/dL Bilirubin, direct 0.4(H) 0.1 - 0.3 mg/dL [facility] Protein, pl 5.8(L) 6.5 - 8.5 g/dL [facility] Albumin 2.5(L) 3.5 - 5.0 g/dL [facility] Alk phos 207(H) 40 - 130 Units/L [facility] ALT 10 7 - 45 Units/L [facility] AST 43 10 - 45 Units/L [facility] Blood 11/18/2024 3:57 PM CDT 11/18/2024 4:11 PM CDT Lee Elena MD LAB BLOOD ORDERABLES Krystyna l Result Performing Organization Address [facility] Co de Phone Number [facility] [address] [place] [address] * (ABNORMAL) Basic metabolic panel (11/18/2024 3:57 PM CDT) [facility] Sodium 140 135 - 145 mmol/L Potassium, pl 4.2 3.3 - 4.9 mmol/L [facility] Chloride 102 97 - 110 mmol/L [facility] CO2 29 22 - 32 mmol/L [facility] Anion gap 9 2 - 15 mmol/L [facility] BUN 13 6 - 25 mg/dL [facility] Creatinine 0.44(L) 0.60 - 1.10 mg/dL [facility] Glucose 92 70 - 199 mg/dL [facility] Comment: Interpretive Data Fasting glucose >/= 126 [...] 2022. Calcium 8.4(L) 8.5 - 10.3 mg/dL [facility] Blood 11/18/2024 3:57 PM CDT 11/18/2024 4:11 PM CDT us Lee Elena MD LAB BLOOD ORDERABLES Krystyna meyers Result [facility] [address] Department [place] [address] * ECG 12 lead (11/18/2024 1:40 PM CDT) Pathologist [facility] Ventricular Rate EKG/Min 86 BPM [facility] Atrial Rate 86 BPM [facility] MS-Interval (MSEC) 104 ms [facility] QRS-Interval (MSEC) 74 ms [facility] QT-Interval (MSEC) 422 ms [facility] QTc 504 ms [facility] P [place] 28 degrees [facility] R [place] 78 degrees [facility] T [place] 159 degrees [facility] Diagnosis Sinus rhythm with short MS T wave abnormality, consider lateral ischemia Prolonged QT Abnormal ECG When compared with ECG of 16-NOV-2024 07:09, Nonspecific T wave abnormality no longer evident in Anterior leads Inverted T waves have replaced nonspecific T wave abnormality in Lateral leads Confirmed by SHALINI RODRIGUEZ M.D ([id number]) on 11/20/2024 4:17:45 PM [facility] 11/18/2024 1:40 PM CDT 11/20/2024 4:17 PM CDT us Lee Elena MD ECG ORDERABLES Final Res ult [facility] * POCT glucose (11/18/2024 12:02 AM CDT) Glucose, POC 104 70 - 199 mg/dL Blood 11/18/2024 12:0 2 AM CDT 11/18/2024 12:02 AM CDT Lee Elena MD LAB POCT ORDERABLES - DEV ICE Final Result Performing Organization Address [facility] Co de Phone Number [facility] Department [place] [address] * eGFR (11/17/2024 10:42 PM CDT) eGFR [...] MD LAB BLOOD ORDERABLES Krystyna l Result [facility] [address] Department [place] [address] * Differential, auto (11/17/2024 10:42 PM CDT) Neutrophil abs 4.62 1.50 - 6.50 K/cumm Imm gran abs 0.08 0.00 - 0.10 K/cumm [facility] Lymphocyte abs 2.27 0.80 - 3.30 K/cumm [facility] Monocyte abs 0.73 0.20 - 0.80 K/cumm [facility] Eosinophil abs 0.13 0.00 - 0.50 K/cumm [facility] Basophil abs 0.08 0.00 - 0.10 K/cumm [facility] Neutrophil pct 58.5 % [facility] Comment: Interpretive Data Percent cell count reference ranges are not reported, since discordance with absolute values may lead to misinterpretation of CBC data. Current Interpretive Data was last revised on 2017. Imm gran pct 1.0 % [facility] Comment: Interpretive Data Percent cell count reference ranges are not reported, since discordance with absolute values may lead to misinterpretation of CBC data. Current Interpretive Data was last revised on 2017. Lymphocyte pct 28.7 % [facility] Comment: Interpretive Data Percent cell count reference ranges are not reported, since discordance with absolute values may lead to misinterpretation of CBC data. Current Interpretive Data was last revised on 2017. Monocyte pct 9.2 % [facility] Comment: Interpretive Data Percent cell count reference ranges are not reported, since discordance with absolute values may lead to misinterpretation of CBC data. Current Interpretive Data was last revised on 2017. Eosinophil pct 1.6 % [facility] Comment: Interpretive Data Percent cell count reference ranges are not reported, since discordance with absolute values may lead to misinterpretation of CBC data. Current Interpretive Data was last revised on 2017. Basophil pct 1.0 % [facility] Comment: Interpretive Data Percent cell count reference ranges are not reported, since discordance with absolute values may lead to misinterpretation of CBC data. Current Interpretive Data was last revised on 2017. Blood 11/17/2024 10:4 2 PM CDT 11/17/2024 11:26 PM CDT us Lee Elena MD LAB BLOOD ORDERABLES Krystyna meyers Result [facility] [address] Department [place] [address] * (ABNORMAL) CBC with auto differential (11/17/2024 10:42 PM CDT) WBC 7.91 3.80 - 9.90 K/cumm Hgb 9.2(L) 11.9 - 15.5 g/dL [facility] Hct 27.9(L) 35.6 - 45.5 % [facility] Plt 666(H) 150 - 400 K/cumm [facility] MPV 10.0 9.1 - 12.3 fL [facility] RBC 2.81(L) 3.90 - 5.20 M/cumm [facility] MCV 99.3(H) 81.3 - 96.4 fL [facility] MCH 32.7 27.1 - 33.3 pg [facility] MCHC 33.0 32.3 - 35.7 g/dL [facility] RDW CV 21.2(H) 11.1 - 14.9 % [facility] RDW SD 75.9(H) 35.7 - 48.1 fL [facility] NRBC abs 0.00 0.00 - 0.01 K/cumm [facility] Blood 11/17/2024 10:4 2 PM CDT 11/17/2024 11:26 PM CDT Lee Elena MD LAB BLOOD ORDERABLES Krystyna l Result SH[facility] [address] Department [place] [address] * Blood culture Blood (11/17/2024 10:42 PM CDT) Report Final Report: No growth Blood 11/17/2024 10:4 2 PM CDT 11/17/2024 11:21 PM CDT Narrative SHONA [facility] - 11/22/2024 7:00 AM CDT [...] performance characteristics have been verified by the [facility]. For questions about this culture, contact the Microbiology Laboratory at [phone]. Interpretive data was last revised on 24. us Lee Elena MD LAB MICROBIOLOGY - GENERA L ORDERABLES Final Result Performing Organization Address City/[facility]/ZIP Co de Phone Number SHONA [facility] [address] Department [place] [address] * Protime-INR (11/17/2024 10:42 PM CDT) PT 12.0 9.7 - 13.0 sec INR 1.11 0.90 - 1.20 [facility] Comment: Interpretive data Oral anticoagulant therapeutic ranges: Venous thromboembolism prophylaxis or treatment: 2.0-3.0 CARDIOLOGY Standard range: 2.0-3.0 High-intensity range: 2.5-3.5 Refer to indication-specific guidelines for appropriate target ranges for prosthetic heart valve replacement. Current interpretive data was last revised on 2019. Blood 11/17/2024 10:4 2 PM CDT 11/17/2024 11:22 PM CDT Lee Elena MD LAB BLOOD ORDERABLES Krystyna l Result Performing Organization Address [facility] Co de Phone Number [facility] Department [place] [address] * Phosphorus (11/17/2024 10:42 PM CDT) Pathologist [facility] Phosphorus, pl 3.7 2.3 - 4.5 mg/dL Blood 11/17/2024 10:4 2 PM CDT 11/17/2024 11:26 PM CDT Lee Elena MD LAB BLOOD ORDERABLES Krystyna l Result Performing Organization Address [facility] Co de Phone Number [facility] Department [place] [address] * Magnesium (11/17/2024 10:42 PM CDT) Pathologist [facility] Magnesium 1.8 1.4 - 2.5 mg/dL Blood 11/17/2024 10:4 2 PM CDT 11/17/2024 11:26 PM CDT Lee Elena MD LAB BLOOD ORDERABLES Krystyna l Result Performing Organization Address [facility] Co de Phone Number [facility] Department [place] [address] * (ABNORMAL) Hepatic function panel (11/17/2024 10:42 PM CDT) [facility] Bilirubin, total 0.5 0.1 - 1.2 mg/dL Bilirubin, direct 0.4(H) 0.1 - 0.3 mg/dL [facility] Protein, pl 5.4(L) 6.5 - 8.5 g/dL [facility] Albumin 2.2(L) 3.5 - 5.0 g/dL [facility] Alk phos 186(H) 40 - 130 Units/L [facility] ALT 11 7 - 45 Units/L [facility] AST 44 10 - 45 Units/L [facility] Blood 11/17/2024 10:4 2 PM CDT 11/17/2024 11:26 PM CDT Lee Elena MD LAB BLOOD ORDERABLES Krystyna l Result [facility] Department [place] [address] * (ABNORMAL) Basic metabolic panel (11/17/2024 10:42 PM CDT) [facility] Sodium 139 135 - 145 mmol/L Potassium, pl 4.2 3.3 - 4.9 mmol/L [facility] Chloride 106 97 - 110 mmol/L [facility] CO2 28 22 - 32 mmol/L [facility] Anion gap 5 2 - 15 mmol/L [facility] BUN 10 6 - 25 mg/dL [facility] Creatinine 0.43(L) 0.60 - 1.10 mg/dL [facility] Glucose 99 70 - 199 mg/dL [facility] Comment: Interpretive Data Fasting glucose >/= 126 [...] 2022. Calcium 8.4(L) 8.5 - 10.3 mg/dL [facility] Blood 11/17/2024 10:4 2 PM CDT 11/17/2024 11:26 PM CDT Lee Elena MD LAB BLOOD ORDERABLES Krystyna l Result Performing Organization Address City/[facility]/ZIP Co de Phone Number [facility] [address] [place] [address] * POCT glucose (11/17/2024 7:38 PM CDT) Glucose, POC 101 70 - 199 mg/dL Blood 11/17/2024 7:38 PM CDT 11/17/2024 7:38 PM CDT Lee Elena MD LAB POCT ORDERABLES - DEV ICE Final Result Performing Organization Address City/[facility] Co de Phone Number [facility] of [address] [place] [address] * POCT glucose (11/17/2024 3:39 PM CDT) Glucose, POC 95 70 - 199 mg/dL Blood 11/17/2024 3:39 PM CDT 11/17/2024 3:39 PM CDT Lee Elena MD LAB POCT ORDERABLES - DEV ICE Final Result [facility] of [address] [place] [address] * POCT glucose (11/17/2024 11:25 AM CDT) Glucose, POC 99 70 - 199 mg/dL Blood 11/17/2024 11:2 5 AM CDT 11/17/2024 11:25 AM CDT Lee Elena MD LAB POCT ORDERABLES - DEV ICE Final Result Performing Organization Address City/[facility] de Phone Number [facility] [address] [place] [address] * POCT glucose (11/17/2024 7:43 AM CDT) Glucose, POC 108 70 - 199 mg/dL Blood 11/17/2024 7:43 AM CDT 11/17/2024 7:43 AM CDT Lee Elena MD LAB POCT ORDERABLES - DEV ICE Final Result Performing Organization Address [facility] de Phone Number [facility] [address] [place] [address] * POCT glucose (11/17/2024 5:04 AM CDT) Glucose, POC 110 70 - 199 mg/dL Blood 11/17/2024 5:04 AM CDT 11/17/2024 5:04 AM CDT Lee Elena MD LAB POCT ORDERABLES - DEV ICE Final Result Performing Organization Address City/[facility] [place] [address] * POCT glucose (11/17/2024 12:06 AM CDT) Glucose, POC 102 70 - 199 mg/dL Blood 11/17/2024 12:0 6 AM CDT 11/17/2024 12:06 AM CDT Lee Elena MD LAB POCT ORDERABLES - DEV ICE Final Result Performing Organization Address [facility] Co de Phone Number SHONA [facility] Department [place] [address] * eGFR (11/16/2024 9:38 PM CDT) eGFR [...] ORDERABLES Krystyna l Result Performing Organization Address City/[facility]/ZIP Co de Phone Number [facility] [place] [address] * (ABNORMAL) Differential, auto (11/16/2024 9:38 PM CDT) Pathologist [facility] Neutrophil abs 9.72(H) 1.50 - 6.50 K/cumm Imm gran abs 0.14(H) 0.00 - 0.10 K/cumm [facility] Lymphocyte abs 1.26 0.80 - 3.30 K/cumm [facility] Monocyte abs 0.53 0.20 - 0.80 K/cumm [facility] Eosinophil abs 0.06 0.00 - 0.50 K/cumm [facility] Basophil abs 0.08 0.00 - 0.10 K/cumm [facility] Neutrophil pct 82.4 % [facility] Comment: Interpretive Data Percent cell count reference ranges are not reported, since discordance with absolute values may lead to misinterpretation of CBC data. Current Interpretive Data was last revised on 2017. Imm gran pct 1.2 % [facility] Comment: Interpretive Data Percent cell count reference ranges are not reported, since discordance with absolute values may lead to misinterpretation of CBC data. Current Interpretive Data was last revised on 2017. Lymphocyte pct 10.7 % [facility] Comment: Interpretive Data Percent cell count reference ranges are not reported, since discordance with absolute values may lead to misinterpretation of CBC data. Current Interpretive Data was last revised on 2017. Monocyte pct 4.5 % [facility] Comment: Interpretive Data Percent cell count reference ranges are not reported, since discordance with absolute values may lead to misinterpretation of CBC data. Current Interpretive Data was last revised on 2017. Eosinophil pct 0.5 % [facility] Comment: Interpretive Data Percent cell count reference ranges are not reported, since discordance with absolute values may lead to misinterpretation of CBC data. Current Interpretive Data was last revised on 2017. Basophil pct 0.7 % [facility] Comment: Interpretive Data Percent cell count reference ranges are not reported, since discordance with absolute values may lead to misinterpretation of CBC data. Current Interpretive Data was last revised on 2017. Blood 11/16/2024 9:38 PM CDT 11/16/2024 10:38 PM CDT us Lee Elena MD LAB BLOOD ORDERABLES Krystyna meyers Result [facility] [address] Department [place] [address] * (ABNORMAL) CBC with auto differential (11/16/2024 9:38 PM CDT) WBC 11.79(H) 3.80 - 9.90 K/cumm Hgb 10.1(L) 11.9 - 15.5 g/dL [facility] Hct 30.2(L) 35.6 - 45.5 % [facility] Plt 718(H) 150 - 400 K/cumm [facility] MPV 10.5 9.1 - 12.3 fL [facility] RBC 3.12(L) 3.90 - 5.20 M/cumm [facility] MCV 96.8(H) 81.3 - 96.4 fL [facility] MCH 32.4 27.1 - 33.3 pg [facility] MCHC 33.4 32.3 - 35.7 g/dL [facility] RDW CV 21.5(H) 11.1 - 14.9 % [facility] RDW SD 73.1(H) 35.7 - 48.1 fL [facility] NRBC abs 0.00 0.00 - 0.01 K/cumm [facility] Blood 11/16/2024 9:38 PM CDT 11/16/2024 10:38 PM CDT Lee Elena MD LAB BLOOD ORDERABLES Krystyna l Result [facility] [address] Department [place] [address] * Blood culture Blood (11/16/2024 9:38 PM CDT) Pathologist [facility] Report Final Report: No growth Blood 11/16/2024 9:38 PM CDT 11/16/2024 10:38 PM CDT Narrative [facility] - 11/21/2024 7:00 AM CDT From a [...] performance characteristics have been verified by the [facility]. For questions about this culture, contact the Microbiology Laboratory at [phone]. Interpretive data was last revised on 24. Lee Elena MD LAB MICROBIOLOGY - GENERA L ORDERABLES Final Result Performing Organization Address [facility] Co de Phone Number [facility] Department [place] [address] * Protime-INR (11/16/2024 9:38 PM CDT) PT 12.6 9.7 - 13.0 sec INR 1.16 0.90 - 1.20 [facility] Comment: Interpretive data Oral anticoagulant therapeutic ranges: Venous thromboembolism prophylaxis or treatment: 2.0-3.0 CARDIOLOGY Standard range: 2.0-3.0 High-intensity range: 2.5-3.5 Refer to indication-specific guidelines for appropriate target ranges for prosthetic heart valve replacement. Current interpretive data was last revised on 2019. Blood 11/16/2024 9:3 8 PM CDT 11/16/2024 10:38 PM CDT Lee Elena MD LAB BLOOD ORDERABLES Krystyna l Result Performing Organization Address City/[facility]/ZIP Co de Phone Number [facility] [place] [address] * Phosphorus (11/16/2024 9:38 PM CDT) [facility] Phosphorus, pl 4.1 2.3 - 4.5 mg/dL Blood 11/16/2024 9:38 PM CDT 11/16/2024 10:37 PM CDT Lee Elena MD LAB BLOOD ORDERABLES Krystyna l Result Performing Organization Address City/[facility]/ZIP Co de Phone Number [facility] [place] [address] * Magnesium (11/16/2024 9:38 PM CDT) [facility] Magnesium 1.5 1.4 - 2.5 mg/dL Blood 11/16/2024 9:38 PM CDT 11/16/2024 10:37 PM CDT Lee Elena MD LAB BLOOD ORDERABLES Krystyna l Result Performing Organization Address City/[facility] Co de Phone Number [facility] [address] [place] [address] * (ABNORMAL) Hepatic function panel (11/16/2024 9:38 PM CDT) [facility] Bilirubin, total 0.6 0.1 - 1.2 mg/dL Bilirubin, direct 0.4(H) 0.1 - 0.3 mg/dL [facility] Protein, pl 5.7(L) 6.5 - 8.5 g/dL [facility] Albumin 2.0(L) 3.5 - 5.0 g/dL [facility] Alk phos 201(H) 40 - 130 Units/L [facility] ALT 21 7 - 45 Units/L [facility] AST 68(H) 10 - 45 Units/L [facility] Blood 11/16/2024 9:38 PM CDT 11/16/2024 10:37 PM CDT Lee Elena MD LAB BLOOD ORDERABLES Krystyna l Result Performing Organization Address City/[facility]/ZIP Co de Phone Number [facility] Department [place] [address] * (ABNORMAL) Basic metabolic panel (11/16/2024 9:38 PM CDT) [facility] Sodium 141 135 - 145 mmol/L Potassium, pl 4.2 3.3 - 4.9 mmol/L [facility] Chloride 103 97 - 110 mmol/L [facility] CO2 29 22 - 32 mmol/L [facility] Anion gap 9 2 - 15 mmol/L [facility] BUN 9 6 - 25 mg/dL [facility] Creatinine 0.48(L) 0.60 - 1.10 mg/dL [facility] Glucose 90 70 - 199 mg/dL [facility] Comment: Interpretive Data Fasting glucose >/= 126 [...] 2022. Calcium 8.8 8.5 - 10.3 mg/dL [facility] Blood 11/16/2024 9:38 PM CDT 11/16/2024 10:37 PM CDT Lee Elena MD LAB BLOOD ORDERABLES Krystyna l Result Performing Organization Address [facility] Co de Phone Number [facility] Department [place] [address] * Blood culture Blood (11/16/2024 9:28 PM [...] performance characteristics have been verified by the [facility]. For questions about this culture, contact the Microbiology Laboratory at [phone]. Interpretive data was last revised on 24. Lee Elena MD LAB MICROBIOLOGY - GENERA L ORDERABLES Final Result SH[facility] BACK [facility] Department [place] [address] * POCT glucose (11/16/2024 8:10 PM CDT) Glucose, POC 124 70 - 199 mg/dL Blood 11/16/2024 8:10 PM CDT 11/16/2024 8:10 PM CDT Lee Elena MD LAB POCT ORDERABLES - DEV ICE Final Result [facility] BACK [facility] Department [place] [address] * POCT glucose (11/16/2024 6:32 PM CDT) Glucose, POC 104 70 - 199 mg/dL Blood 11/16/2024 6:32 PM CDT 11/16/2024 6:32 PM CDT us Lee Elena MD LAB POCT ORDERABLES - DEV ICE Final Result Performing Organization Address [facility] Co de Phone Number SHONA BACK Sydni [facility] [place] [address] * Radiology Event (11/16/2024 5:53 PM CDT) [...] department on the 5th floor of the [facility] tower. It was reported that when [...] department on the 5th floor of the [facility]. It was reported that when [...] mapping at the mid: normal less than 0017-9464 ms. T2 mapping at the mid: normal [...] mapping at the mid: normal less than 4297-1935 ms. T2 mapping at the mid: normal [...] transfusion. Hct 30.3(L) 35.6 - 45.5 % [facility] Blood 11/16/2024 11:5 9 AM CDT 11/16/2024 12:47 PM CDT us Oracio Cody MD LAB BLOOD ORDERABLES Final Result [facility] Department [place] [address] * eGFR (11/16/2024 11:58 AM CDT) eGFR [...] MD LAB BLOOD ORDERAB[place] [address] * Calcium, ionized (11/16/2024 11:58 AM CDT) Calcium, Ionized 4.68 4.50 - 5.10 mg/dL Blood 11/16/2024 11:5 8 AM CDT 11/16/2024 12:39 PM CDT Lee Elena MD LAB BLOOD ORDERABLES Krystyna l Result Performing Organization Address City/[facility] [place] [address] * Phosphorus (11/16/2024 11:58 AM CDT) Pathologist [facility] Phosphorus, pl 4.3 2.3 - 4.5 mg/dL Blood 11/16/2024 11:5 8 AM CDT 11/16/2024 12:47 PM CDT Lee Elena MD LAB BLOOD ORDERABLES Krystyna l Result Performing Organization Address City/[facility] [place] [address] * Magnesium (11/16/2024 11:58 AM CDT) [facility] Magnesium 1.6 1.4 - 2.5 mg/dL Blood 11/16/2024 11:5 8 AM CDT 11/16/2024 12:47 PM CDT Lee Elena MD LAB BLOOD ORDERABLES Krystyna l Result [facility] [place] [address] * (ABNORMAL) Basic metabolic panel (11/16/2024 11:58 AM CDT) Sodium 140 135 - 145 mmol/L Potassium, pl 4.2 3.3 - 4.9 mmol/L [facility] Chloride 104 97 - 110 mmol/L [facility] CO2 30 22 - 32 mmol/L [facility] Anion gap 6 2 - 15 mmol/L [facility] BUN 9 6 - 25 mg/dL [facility] Creatinine 0.44(L) 0.60 - 1.10 mg/dL [facility] Glucose 101 70 - 199 mg/dL [facility] Comment: Interpretive Data Fasting glucose >/= 126 [...] 2022. Calcium 8.6 8.5 - 10.3 mg/dL [facility] Blood 11/16/2024 11:5 8 AM CDT 11/16/2024 12:47 PM CDT Lee Elena MD LAB BLOOD ORDERABLES Krystyna l Result [facility] [address] [facility] Department [place] [address] * (ABNORMAL) POCT glucose (11/16/2024 11:43 AM CDT) Glucose, POC 250(H) 70 - 199 mg/dL Comment:Glu2: RN/ Notified Glucose comment 1 Glu2: RN/ Notified [facility] Blood 11/16/2024 11:4 3 AM CDT 11/16/2024 11:43 AM CDT us Lee Elena MD LAB POCT ORDERABLES - DEV ICE Final Result Performing Organization Address [facility] Co de Phone Number [facility] [place] [address] * POCT glucose (11/16/2024 7:55 AM CDT) Glucose, POC 98 70 - 199 mg/dL Blood 11/16/2024 7:55 AM CDT 11/16/2024 7:55 AM CDT Lee Elena MD LAB POCT ORDERABLES - DEV ICE Final Result Performing Organization Address [facility] de Phone Number [facility] [place] [address] * ECG 12 lead (11/16/2024 7:09 AM CDT) [facility] Signature Ventricular Rate EKG/Min 84 BPM [facility] Atrial Rate 84 BPM [facility] MS-Interval (MSEC) 126 ms [facility] QRS-Interval (MSEC) 66 ms [facility] QT-Interval (MSEC) 410 ms [facility] QTc 484 ms [facility] P [place] 19 degrees [facility] R [place] 41 degrees [facility] T [place] 92 degrees [facility] Diagnosis Normal sinus rhythm Nonspecific T wave abnormality Prolonged QT Abnormal ECG Confirmed by Gustabo Mcdaniels MD ([id number]) on 11/16/2024 8:39:02 AM [facility] 11/16/2024 7:09 AM CDT 11/16/2024 8:39 AM CDT us Lee Elena MD ECG ORDERABLES Final Res ult Performing Organization Address [facility] Co de Phone Number [facility] * Transfuse RBC (11/16/2024 6:22 AM CDT) Blood Lee Elena MD BLOOD TRANSFUSION ORDERAB LES Final Result Performing Organization Address [facility]/ZIP Co de Phone Number [facility] [place] [address] * POCT glucose (11/16/2024 4:21 AM CDT) Glucose, POC 119 70 - 199 mg/dL Blood 11/16/2024 4:21 AM CDT 11/16/2024 4:21 AM CDT Lee Elena MD LAB POCT ORDERABLES - DEV ICE Final Result Performing Organization Address [facility] Co de Phone Number [facility] [place] [address] * Type and screen (11/16/2024 1:45 AM CDT) Zach, indirect Negative ABO Rh A Positive [facility] Blood 11/16/2024 1:45 AM CDT 11/16/2024 2:04 AM CDT Narrative [facility] - 11/16/2024 2:58 AM CDT Has the patient had Daratumumab or Isatuximab in the past 6 months?->Unknown Lee Elena MD LAB BLOOD BANK TEST ORDER ALINE Final Result Performing Organization Address [facility] Co de Phone Number [facility] Department [place] [address] * POCT glucose (11/16/2024 12:24 AM CDT) Glucose, POC 107 70 - 199 mg/dL Blood 11/16/2024 12:2 4 AM CDT 11/16/2024 12:24 AM CDT Lee Elena MD LAB POCT ORDERABLES - DEV ICE Final Result Performing Organization Address [facility] Co de Phone Number [facility] Department [place] [address] * Prepare RBC: 1 Units (11/15/2024 10:35 PM CDT) Pathologist [facility] Product code [id number] Unit Number [id number] U [facility] Product Blood Type APOS [facility] Dispense Status PRESUMED TRANSFUSED [facility] Blood 11/15/2024 10:3 5 PM CDT 11/15/2024 10:34 PM CDT Narrative [facility] - 11/16/2024 4:01 PM CDT Are special requirements needed? (All products are leukoreduced and CMV- safe)- >No Date required:-[id number] LRRBC # of [id number] Reasons:-Hgb <7 g/dL} us Lee Elena MD BLOOD BANK PRODUCT ORDERA BLES Final Result [facility] Department [place] [address] * eGFR (11/15/2024 8:16 PM CDT) [facility] eGFR >90 >=60 mL/min/1. 73 m2 Comment: [...] MD LAB BLOOD ORDERABLES Krystyna mira Result [facility] [address] [facility] Department [place] [address] * (ABNORMAL) Differential, auto (11/15/2024 8:16 PM CDT) Pathologist [facility] Neutrophil abs 2.95 1.50 - 6.50 K/cumm Imm gran abs 0.11(H) 0.00 - 0.10 K/cumm [facility] Lymphocyte abs 2.04 0.80 - 3.30 K/cumm [facility] Monocyte abs 0.49 0.20 - 0.80 K/cumm [facility] Eosinophil abs 0.10 0.00 - 0.50 K/cumm [facility] Basophil abs 0.02 0.00 - 0.10 K/cumm [facility] Neutrophil pct 51.6 % [facility] Comment: Interpretive Data Percent cell count reference ranges are not reported, since discordance with absolute values may lead to misinterpretation of CBC data. Current Interpretive Data was last revised on 2017. Imm gran pct 1.9 % [facility] Comment: Interpretive Data Percent cell count reference ranges are not reported, since discordance with absolute values may lead to misinterpretation of CBC data. Current Interpretive Data was last revised on 2017. Lymphocyte pct 35.7 % [facility] Comment: Interpretive Data Percent cell count reference ranges are not reported, since discordance with absolute values may lead to misinterpretation of CBC data. Current Interpretive Data was last revised on 2017. Monocyte pct 8.6 % [facility] Comment: Interpretive Data Percent cell count reference ranges are not reported, since discordance with absolute values may lead to misinterpretation of CBC data. Current Interpretive Data was last revised on 2017. Eosinophil pct 1.8 % [facility] Comment: Interpretive Data Percent cell count reference ranges are not reported, since discordance with absolute values may lead to misinterpretation of CBC data. Current Interpretive Data was last revised on 2017. Basophil pct 0.4 % [facility] Comment: Interpretive Data Percent cell count reference ranges are not reported, since discordance with absolute values may lead to misinterpretation of CBC data. Current Interpretive Data was last revised on 2017. Blood 11/15/2024 8:16 PM CDT 11/15/2024 9:37 PM CDT us Lee Elena MD LAB BLOOD ORDERABLES Krystyna meyers Result [facility] [address] [facility] Department [place] [address] * (ABNORMAL) CBC with auto differential (11/15/2024 8:16 PM CDT) WBC 5.71 3.80 - 9.90 K/cumm Hgb 6.9(L) 11.9 - 15.5 g/dL [facility] Hct 20.7(L) 35.6 - 45.5 % [facility] Plt 592(H) 150 - 400 K/cumm [facility] MPV 11.0 9.1 - 12.3 fL [facility] RBC 2.05(L) 3.90 - 5.20 M/cumm [facility] MCV 101.0(H) 81.3 - 96.4 fL [facility] MCH 33.7(H) 27.1 - 33.3 pg [facility] MCHC 33.3 32.3 - 35.7 g/dL [facility] RDW CV 21.6(H) 11.1 - 14.9 % [facility] RDW SD 77.4(H) 35.7 - 48.1 fL [facility] NRBC abs 0.00 0.00 - 0.01 K/cumm [facility] Blood 11/15/2024 8:16 PM CDT 11/15/2024 9:37 PM CDT us Lee Elena MD LAB BLOOD ORDERABLES Krystyna l Result [facility] Department [place] [address] * Blood culture Blood (11/15/2024 8:16 PM CDT) Report Final Report: No growth Blood 11/15/2024 8:16 PM CDT 11/15/2024 9:44 PM CDT Narrative SHONA [facility] - 11/20/2024 7:00 AM CDT [...] performance characteristics have been verified by the [facility]. For questions about this culture, contact the Microbiology Laboratory at [phone]. Interpretive data was last revised on 24. us Lee Elena MD LAB MICROBIOLOGY - GENERA L ORDERABLES Final Result SHONA [facility] [facility] Department [place] [address] * Protime-INR (11/15/2024 8:16 PM CDT) PT 10.7 9.7 - 13.0 sec INR 0.99 0.90 - 1.20 [facility] Comment: Interpretive data Oral anticoagulant therapeutic ranges: Venous thromboembolism prophylaxis or treatment: 2.0-3.0 CARDIOLOGY Standard range: 2.0-3.0 High-intensity range: 2.5-3.5 Refer to indication-specific guidelines for appropriate target ranges for prosthetic heart valve replacement. Current interpretive data was last revised on 2019. Blood 11/15/2024 8:16 PM CDT 11/15/2024 9:39 PM CDT Lee Elena MD LAB BLOOD ORDERABLES Krystyna l Result Performing Organization Address City/[facility] Co de Phone Number [facility] [address] [place] [address] * Phosphorus (11/15/2024 8:16 PM CDT) [facility] Phosphorus, pl 4.0 2.3 - 4.5 mg/dL Blood 11/15/2024 8:16 PM CDT 11/15/2024 9:36 PM CDT Lee Elena MD LAB BLOOD ORDERABLES Krystyna l Result Performing Organization Address City/[facility] Co de Phone Number [facility] of [address] [place] [address] * Magnesium (11/15/2024 8:16 PM CDT) [facility] Magnesium 1.6 1.4 - 2.5 mg/dL Blood 11/15/2024 8:16 PM CDT 11/15/2024 9:36 PM CDT Lee Elena MD LAB BLOOD ORDERABLES Krystyna l Result [facility] [address] [place] [address] * (ABNORMAL) Hepatic function panel (11/15/2024 8:16 PM CDT) [facility] Bilirubin, total 0.5 0.1 - 1.2 mg/dL Bilirubin, direct 0.4(H) 0.1 - 0.3 mg/dL [facility] Protein, pl 4.8(L) 6.5 - 8.5 g/dL [facility] Albumin 2.1(L) 3.5 - 5.0 g/dL [facility] Alk phos 171(H) 40 - 130 Units/L [facility] ALT 11 7 - 45 Units/L [facility] AST 39 10 - 45 Units/L [facility] Blood 11/15/2024 8:16 PM CDT 11/15/2024 9:36 PM CDT Lee Elena MD LAB BLOOD ORDERABLES Krystyna meyers Result [facility] [address] [facility] Department [place] [address] * (ABNORMAL) Basic metabolic panel (11/15/2024 8:16 PM CDT) [facility] Sodium 141 135 - 145 mmol/L Potassium, pl 4.0 3.3 - 4.9 mmol/L [facility] Chloride 105 97 - 110 mmol/L [facility] CO2 29 22 - 32 mmol/L [facility] Anion gap 7 2 - 15 mmol/L [facility] BUN 7 6 - 25 mg/dL [facility] Creatinine 0.46(L) 0.60 - 1.10 mg/dL [facility] Glucose 95 70 - 199 mg/dL [facility] Comment: Interpretive Data Fasting glucose >/= 126 [...] 2022. Calcium 7.7(L) 8.5 - 10.3 mg/dL [facility] Blood 11/15/2024 8:16 PM CDT 11/15/2024 9:36 PM CDT Lee Elena MD LAB BLOOD ORDERABLES Krystyna l Result [facility] of [address] [place] [address] * POCT glucose (11/15/2024 7:40 PM CDT) Glucose, POC 117 70 - 199 mg/dL Blood 11/15/2024 7:40 PM CDT 11/15/2024 7:40 PM CDT Lee Elena MD LAB POCT ORDERABLES - DEV ICE Final Result Performing Organization Address City/[facility]/ZIP Co de Phone Number [facility] [address] [place] [address] * POCT glucose (11/15/2024 5:11 PM CDT) Glucose, POC 100 70 - 199 mg/dL Blood 11/15/2024 5:11 PM CDT 11/15/2024 5:11 PM CDT Lee Elena MD LAB POCT ORDERABLES - DEV ICE Final Result Performing Organization Address City/[facility]/ZIP Co de Phone Number [facility] [address] [place] [address] * POCT glucose (11/15/2024 11:19 AM CDT) Glucose, POC 127 70 - 199 mg/dL Blood 11/15/2024 11:1 9 AM CDT 11/15/2024 11:19 AM CDT Lee Elena MD LAB POCT ORDERABLES - DEV ICE Final Result Performing Organization Address [facility] de Phone Number [facility] [address] [place] [address] * POCT glucose (11/15/2024 8:44 AM CDT) Glucose, POC 106 70 - 199 mg/dL Blood 11/15/2024 8:44 AM CDT 11/15/2024 8:44 AM CDT Lee Elena MD LAB POCT ORDERABLES - DEV ICE Final Result Performing Organization Address [facility] de Phone Number [facility] of [address] [place] [address] * POCT glucose (11/15/2024 4:01 AM CDT) Glucose, POC 102 70 - 199 mg/dL Blood 11/15/2024 4:01 AM CDT 11/15/2024 4:01 AM CDT Lee Elena MD LAB POCT ORDERABLES - DEV ICE Final Result Performing Organization Address [facility] [place] [address] * POCT glucose (11/15/2024 12:15 AM CDT) Glucose, POC 110 70 - 199 mg/dL Blood 11/15/2024 12:1 5 AM CDT 11/15/2024 12:15 AM CDT Lee Elena MD LAB POCT ORDERABLES - DEV ICE Final Result Performing Organization Address [facility]/ZIP Co de Phone Number [facility] [address] Department [place] [address] * ECG 12 lead (11/14/2024 10:27 PM CDT) Pathologist [facility] Ventricular Rate EKG/Min 103 BPM [facility] Atrial Rate 103 BPM [facility] MS-Interval (MSEC) 124 ms [facility] QRS-Interval (MSEC) 70 ms [facility] QT-Interval (MSEC) 380 ms [facility] QTc 497 ms [facility] P [place] 23 degrees [facility] R [place] 21 degrees [facility] T [place] 113 degrees [facility] Diagnosis Sinus tachycardia Nonspecific T wave abnormality Abnormal ECG Confirmed by Arslan LANG [facility] ([id number]) on 11/15/2024 4:29:22 PM [facility] 11/14/2024 10:2 7 PM CDT 11/15/2024 4:29 PM CDT Lee Elena MD ECG ORDERABLES Final Res ult Performing Organization Address [facility] de Phone Number [facility] * N. gonorrhoeae/C. trachomatis Amplification Urine (11/14/2024 10:01 PM CDT) [facility] C. trachomatis Not Detected Not Detected [facility] N. gonorrhoeae Not Detected Not Detected [facility] Comment: Interpretive Data This assay detects Chlamydia trachomatis and Neisseria gonorrhoeae by nucleic acid amplification testing (NAAT). This assay has been cleared by the [place] Food and Drug administration. The performance characteristics of this test have been verified by the [facility] Molecular Infectious Disease laboratory. The performance characteristics of this test have not been evaluated in individuals less than 14 years of age. Current Interpretive Data last revised 2023. Urine (None) 11/14/2024 10:0 1 PM CDT 11/15/2024 3:36 AM CDT Lee Elena MD LAB MICROBIOLOGY - GENERA L ORDERABLES Final Result Performing Organization Address [facility] Co de Phone Number SHONA [facility] Department [place] [address] [facility] * eGFR (11/14/2024 9:16 PM CDT) Pathologist [facility] eGFR >90 >=60 mL/min/1. 73 m2 [...] ORDERABLES Krystyna l Result Performing Organization Address City/[facility]/ZIP Co de Phone Number SHONA [facility] Department [place] [address] * (ABNORMAL) Differential, auto (11/14/2024 9:16 PM CDT) Pathologist [facility] Neutrophil abs 4.79 1.50 - 6.50 K/cumm Imm gran abs 0.18(H) 0.00 - 0.10 K/cumm [facility] Lymphocyte abs 2.09 0.80 - 3.30 K/cumm [facility] Monocyte abs 0.68 0.20 - 0.80 K/cumm [facility] Eosinophil abs 0.10 0.00 - 0.50 K/cumm [facility] Basophil abs 0.05 0.00 - 0.10 K/cumm [facility] Neutrophil pct 60.7 % [facility] Comment: Interpretive Data Percent cell count reference ranges are not reported, since discordance with absolute values may lead to misinterpretation of CBC data. Current Interpretive Data was last revised on 2017. Imm gran pct 2.3 % [facility] Comment: Interpretive Data Percent cell count reference ranges are not reported, since discordance with absolute values may lead to misinterpretation of CBC data. Current Interpretive Data was last revised on 2017. Lymphocyte pct 26.5 % [facility] Comment: Interpretive Data Percent cell count reference ranges are not reported, since discordance with absolute values may lead to misinterpretation of CBC data. Current Interpretive Data was last revised on 2017. Monocyte pct 8.6 % [facility] Comment: Interpretive Data Percent cell count reference ranges are not reported, since discordance with absolute values may lead to misinterpretation of CBC data. Current Interpretive Data was last revised on 2017. Eosinophil pct 1.3 % [facility] Comment: Interpretive Data Percent cell count reference ranges are not reported, since discordance with absolute values may lead to misinterpretation of CBC data. Current Interpretive Data was last revised on 2017. Basophil pct 0.6 % [facility] Comment: Interpretive Data Percent cell count reference ranges are not reported, since discordance with absolute values may lead to misinterpretation of CBC data. Current Interpretive Data was last revised on 2017. Blood 11/14/2024 9:16 PM CDT 11/14/2024 10:29 PM CDT us Lee Elena MD LAB BLOOD ORDERABLES Krystyna meyers Result [facility] [address] [facility] [address] Department [place] [address] * (ABNORMAL) CBC with auto differential (11/14/2024 9:16 PM CDT) WBC 7.89 3.80 - 9.90 K/cumm Hgb 7.4(L) 11.9 - 15.5 g/dL [facility] Hct 22.1(L) 35.6 - 45.5 % [facility] Plt 501(H) 150 - 400 K/cumm [facility] MPV 11.5 9.1 - 12.3 fL [facility] RBC 2.25(L) 3.90 - 5.20 M/cumm [facility] MCV 98.2(H) 81.3 - 96.4 fL [facility] MCH 32.9 27.1 - 33.3 pg [facility] MCHC 33.5 32.3 - 35.7 g/dL [facility] RDW CV 21.2(H) 11.1 - 14.9 % [facility] RDW SD 74.3(H) 35.7 - 48.1 fL [facility] NRBC abs 0.00 0.00 - 0.01 K/cumm [facility] Blood 11/14/2024 9:16 PM CDT 11/14/2024 10:29 PM CDT Lee Elena MD LAB BLOOD ORDERABLES Krystyna meyers Result [facility] [address] Department [place] [address] * Blood culture Blood (11/14/2024 9:16 PM CDT) Pathologist [facility] Report Final Report: No growth Blood 11/14/2024 9:16 PM CDT 11/14/2024 10:47 PM CDT Narrative [facility] - 11/19/2024 7:00 AM CDT From a [...] performance characteristics have been verified by the [facility]. For questions about this culture, contact the Microbiology Laboratory at [phone]. Interpretive data was last revised on 24. us Lee Elena MD LAB MICROBIOLOGY - GENERA L ORDERABLES Final Result [facility] [address] Department [place] [address] * (ABNORMAL) Blood culture Blood (11/14/2024 9:16 PM CDT) Direct Specimen Exam Stain: Gram Positive Cocci in clusters Time to culture positivity (anaerobic media): 58.1 hours Notification of: Gram Positive Cocci in clusters called to and read back by: Ash Valencia M.D. [id number] on 11/17/2024 10:04:19 by: Nani Bueno [facility] Final Report: Staphylococcus aureus For susceptibility results, refer to accession number [id number] on the blood culture from 11/14/2024 (.) [facility] Organism STAPHYLOCOCCUS AUREUS [facility] Blood 11/14/2024 9:16 PM CDT 11/14/2024 10:47 PM CDT Narrative [facility] - 11/20/2024 8:57 AM CDT [...] performance characteristics have been verified by the [facility]. For questions about this culture, contact the Microbiology Laboratory at [phone]. Interpretive data was last revised on 24. Lee Elena MD LAB MICROBIOLOGY - GENERA L ORDERABLES Final Result Performing Organization Address City/[facility] de Phone Number [facility] Department [place] [address] * Protime-INR (11/14/2024 9:16 PM CDT) Pathologist [facility] PT 12.1 9.7 - 13.0 sec INR 1.12 0.90 - 1.20 [facility] Comment: Interpretive data Oral anticoagulant therapeutic ranges: Venous thromboembolism prophylaxis or treatment: 2.0-3.0 CARDIOLOGY Standard range: 2.0-3.0 High-intensity range: 2.5-3.5 Refer to indication-specific guidelines for appropriate target ranges for prosthetic heart valve replacement. Current interpretive data was last revised on 2019. Blood 11/14/2024 9:16 PM CDT 11/14/2024 10:35 PM CDT Lee Elena MD LAB BLOOD ORDERABLES Krystyna l Result Performing Organization Address [facility] Co de Phone Number [facility] [place] [address] * Uric acid (11/14/2024 9:16 PM CDT) [facility] Uric acid 3.4 2.5 - 7.0 mg/dL Blood 11/14/2024 9:16 PM CDT 11/14/2024 10:34 PM CDT Lee Elena MD LAB BLOOD [place]AB[place] [address] * (ABNORMAL) Phosphorus (11/14/2024 9:16 PM CDT) [facility] Phosphorus, pl 5.1(H) 2.3 - 4.5 mg/dL Blood 11/14/2024 9:16 PM CDT 11/14/2024 10:29 PM CDT Lee Elena MD LAB BLOOD ORDERABLES Krystyna l Result Performing Organization Address City/[facility]/[place] [address] * Magnesium (11/14/2024 9:16 PM CDT) [facility] Magnesium 1.9 1.4 - 2.5 mg/dL Blood 11/14/2024 9:16 PM CDT 11/14/2024 10:29 PM CDT Lee Elena MD LAB BLOOD ORDERABLES Krystyna l Result Performing Organization Address City/[facility]/ZIP Co de Phone Number [facility] [place] [address] * Folate (11/14/2024 9:16 PM CDT) [facility] Folic acid 16.4 >=5.0 ng/mL Blood 11/14/2024 9:16 PM CDT 11/14/2024 10:29 PM CDT Lee Elena MD LAB BLOOD ORDERABLES Krystyna l Result Performing Organization Address City/[facility]/ZIP Co de Phone Number [facility] Department [place] [address] * (ABNORMAL) Vitamin B12 (11/14/2024 9:16 PM CDT) [facility] Vitamin B12 1,820(H) 230 - 1,250 pg/mL Blood 11/14/2024 9:16 PM CDT 11/14/2024 10:29 PM CDT Lee Elena MD LAB BLOOD ORDERABLES Krystyna l Result Performing Organization Address [facility] Co de Phone Number [facility] [place] [address] * (ABNORMAL) Hepatic function panel (11/14/2024 9:16 PM CDT) [facility] Bilirubin, total 0.6 0.1 - 1.2 mg/dL Bilirubin, direct 0.5(H) 0.1 - 0.3 mg/dL [facility] Protein, pl 4.7(L) 6.5 - 8.5 g/dL [facility] Albumin 2.0(L) 3.5 - 5.0 g/dL [facility] Alk phos 166(H) 40 - 130 Units/L [facility] ALT 10 7 - 45 Units/L [facility] AST 41 10 - 45 Units/L [facility] Blood 11/14/2024 9:16 PM CDT 11/14/2024 10:29 PM CDT Lee Elena MD LAB BLOOD ORDERABLES Krystyna l Result [facility] Department [place] [address] * (ABNORMAL) Basic metabolic panel (11/14/2024 9:16 PM CDT) Sodium 139 135 - 145 mmol/L Potassium, pl 3.7 3.3 - 4.9 mmol/L [facility] Chloride 100 97 - 110 mmol/L [facility] CO2 27 22 - 32 mmol/L [facility] Anion gap 12 2 - 15 mmol/L [facility] BUN 5(L) 6 - 25 mg/dL [facility] Creatinine 0.48(L) 0.60 - 1.10 mg/dL [facility] Glucose 84 70 - 199 mg/dL [facility] Comment: Interpretive Data Fasting glucose >/= 126 [...] 2022. Calcium 7.7(L) 8.5 - 10.3 mg/dL [facility] Blood 11/14/2024 9:16 PM CDT 11/14/2024 10:29 PM CDT us Lee Elena MD LAB BLOOD ORDERABLES Krystyna l Result [facility] [address] Department [place] [address] * POCT glucose (11/14/2024 7:37 PM CDT) Glucose, POC 119 70 - 199 mg/dL Blood 11/14/2024 7:37 PM CDT 11/14/2024 7:37 PM CDT Lee Elena MD LAB POCT ORDERABLES - DEV ICE Final Result Performing Organization Address City/[facility] Co de Phone Number [facility] [place] [address] * POCT glucose (11/14/2024 4:07 PM CDT) Glucose, POC 89 70 - 199 mg/dL Blood 11/14/2024 4:07 PM CDT 11/14/2024 4:07 PM CDT Lee Elena MD LAB POCT ORDERABLES - DEV ICE Final Result Performing Organization Address [facility] de Phone Number [facility] [place] [address] * TRANSESOPHAGEAL ECHO (MAXIMINO) W DOPPLER/CF WO CONTRAST (11/14/2024 2:19 PM CDT) Pathologist [facility] LV EF 45 % CONS SCIMAGE Anatomical Region Laterality Modality Echocardiography 11/14/2024 1:49 PM CDT Narrative 11/15/2024 2:05 PM CDT [facility] [place] [address] Transesophageal Echocardiographic Report Patient Name: HAYLEY LEÓN L : 1990 (34y 9m) Gender: F Study Date: 11/14/2024 01:49:02 PM Ht(Inch): Wt(Lb): BSA: Technology Architect: Location: [id number] Order Provider: JULISSA MCGOWAN BMI: Ref Provider: [...] Procedure Note Aubrey Horvath MD - 11/15/2024 [facility] [place] [address] Transesophageal Echocardiographic Report Patient Name: HAYLEY LEÓN L : 1990 (34y 9m) Gender: F Study Date: 11/14/2024 01:49:02 PM Ht(Inch): Wt(Lb): BSA: Technology Architect: Location: [place] [address] Order Provider: JULISSA MCGOWAN BMI: Ref Provider: [...] Horvath M.D. 11/15/2024 2:04:41 PM CDT Result [facility] Julissa Mcgowan MD CV ECHO PROCEDURES Fin al Result * MS AN ELECTIVE ENDOTRACHEAL AIRWAY, MS AN PROCEDURE PLACEHOLDER (11/14/2024 1:56 PM CDT) [...] silk tape Number of attempts: 1 Result [facility] Rudy Licona MD ANESTHESIA ORDERABLE S Final Result * POCT glucose (11/14/2024 12:33 PM CDT) Glucose, POC 86 70 - 199 mg/dL Blood 11/14/2024 12:3 3 PM CDT 11/14/2024 12:33 PM CDT Lee Elena MD LAB POCT ORDERABLES - DEV ICE Final Result Performing Organization Address [facility] Co de Phone Number [facility] [place] [address] * POCT glucose (11/14/2024 10:49 AM CDT) Glucose, POC 88 70 - 199 mg/dL Blood 11/14/2024 10:4 9 AM CDT 11/14/2024 10:49 AM CDT Lee Elena MD LAB POCT ORDERABLES - DEV ICE Final Result Performing Organization Address [facility] de Phone Number [facility] [place] [address] * POCT glucose (11/14/2024 7:36 AM CDT) Glucose, POC 94 70 - 199 mg/dL Blood 11/14/2024 7:36 AM CDT 11/14/2024 7:36 AM CDT Lee Elena MD LAB POCT ORDERABLES - DEV ICE Final Result Performing Organization Address [facility] de Phone Number [facility] [address] [place] [address] * POCT glucose (11/14/2024 4:28 AM CDT) Glucose, POC 85 70 - 199 mg/dL Blood 11/14/2024 4:28 AM CDT 11/14/2024 4:28 AM CDT Lee Elena MD LAB POCT ORDERABLES - DEV ICE Final Result Performing Organization Address [facility]/ZIP Co de Phone Number [facility] [address] [facility] Department [place] [address] * (ABNORMAL) Blood culture Blood (11/14/2024 12:27 AM CDT) Direct Specimen Exam Stain: Gram Positive Cocci in clusters Time to culture positivity (anaerobic media): 36.1 hours Report Final Report: Staphylococcus aureus For susceptibility results, refer to accession number [id number] on the blood culture from 11/14/2024 (.) [facility] Organism STAPHYLOCOCCUS AUREUS [facility] Blood 11/14/2024 12:2 7 AM CDT 11/14/2024 1:42 AM CDT Narrative [facility] - 11/19/2024 7:49 AM CDT From a [...] performance characteristics have been verified by the [facility]. For questions about this culture, contact the Microbiology Laboratory at [phone]. Interpretive data was last revised on 24. Lee Elena MD LAB MICROBIOLOGY - GENERA L ORDERABLES Final Result Performing Organization Address [facility] Co de Phone Number [facility] [address] Department [place] [address] * (ABNORMAL) Blood culture Blood (11/14/2024 12:16 AM CDT) Direct Specimen Exam Stain: Gram Positive Cocci in clusters Time to culture positivity (anaerobic media): 18.6 hours Time to culture positivity (aerobic media): 23.8 hours Direct Specimen Exam Molecular Analysis: Methicillin-suscep tible Staphylococcus aureus (MSSA) detected by the [facility] BCID-GP panel. This test does not exclude the possibility of a mixed bacterial infection. [facility] Report Final Report: Staphylococcus aureus Methicillin susceptible (MSSA) by penicillin binding protein 2a (PBP2a) testing. (.) [facility] Organism STAPHYLOCOCCUS AUREUS [facility] Blood 11/14/2024 12:1 6 AM CDT 11/14/2024 1:42 AM CDT Narrative [facility] - 11/17/2024 1:38 PM CDT Collection->Peripheral 1. [...] performance characteristics have been verified by the [facility]. For questions about this culture, contact the Microbiology Laboratory at [phone]. Interpretive data was last revised on 24. Organism Antibiotic Method Susceptibility Staphylococcus aureus Doxycycline (ROGER) INTERPRETATIO N Susceptible Staphylococcus aureus Linezolid (ROGER) INTERPRETATIO N Susceptible Staphylococcus aureus Trimethoprim with Sulfamethoxazole (ROGER) INTERPRETATION Susceptible Staphylococcus aureus Clindamycin (RGOER) INTERPRETATIO N Susceptible Staphylococcus aureus Erythromycin (ROGER) INTERPRETATIO N Susceptible Staphylococcus aureus Vancomycin (ROGER) INTERPRETATIO N Susceptible Staphylococcus aureus Oxacillin (ROGER) INTERPRETATIO N Susceptible Staphylococcus aureus Cefazolin (ROGER) INTERPRETATIO N Susceptible Staphylococcus aureus Ceftriaxone (ROGER) INTERPRETATIO N Susceptible us Lee Elena MD LAB MICROBIOLOGY - GENERA L ORDERABLES Final Result Performing Organization Address City/[facility] Co de Phone Number [facility] Department of [address] [place] [address] * Hepatitis panel, acute Blood (11/03/2024 2:31 PM CDT) Hep A IgM Nonreactive Nonreactive Hep B core IgM Nonreactive Nonreactive [facility] Hep C Ab Nonreactive Nonreactive [facility] Comment:Antibodies to HCV no t detected. Does NOT exclude the possibility of recent exposure to HCV. Current interpretive data was last revised on 22 HepBsAg Nonreactive Nonreactive [facility] Blood 11/03/2024 2:31 PM CDT 11/03/2024 2:38 PM CDT us Mar George MD LAB MICROBIOLOGY - GENERAL ORDERABLES Final Result Performing Organization Address [facility] Co de Phone Number [facility] Department [place] [address] * THINPREP TIS PAP REFLEX HPV mRNA E6/E7, CHLAMYDIA/N.GONORRHOEAE (09/14/2016 12:56 PM MANAGER NC) CLINICAL INFORMATION [facility] HISTORICAL RESULTS Comment: LMP: [facility] HISTORICAL RESULTS PREV. PAP: [facility] HISTORICAL RESULTS Comment:2011 PREV. BX: [facility] HISTORICAL RESULTS Comment:UNKNOWN SOURCE: [facility] HISTORICAL RESULTS Comment:Cervix, Endocervix STATEMENT OF ADEQUACY: [facility] HISTORICAL RESULTS Comment:Satisfactory for savana luation. Endocervical/transformation zone component present. INTERPRETATION/RES ULT: [facility] HISTORICAL RESULTS Comment:Negative for intraep ithelial lesion or malignancy. COMMENT: [facility] HISTORICAL RESULTS Comment:This Pap test has be en evaluated with computer assisted technology. 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 HISTORICAL RESULTS Comment:YQ, CT(ASCP) CT scre ening location: [place] [address] [place] [address] C. trachomatis RNA NOT DETECTED NOT DETECTED [facility] HISTORICAL RESULTS N. gonorrhoeae RNA NOT DETECTED NOT DETECTED [facility] HISTORICAL RESULTS COMMENT [facility] HISTORICAL RESULTS Comment: This test was performed using the APTIMA COMBO2 Assay ([employer] The analytical performance characteristics of this assay, when used to test SurePath specimens have been determined by [employer]. 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
--- OUTSIDE RECORDS SUMMARY | 2025-02-13 13:36 | XMS_ITS | Encounter Summary ---
Author Organization [facility] Address [address] [place] [address] Phone Care Team Providers Care International Tax Manager Name Role Phone Mo Mitchell MD Primary Care Provider [phone] Reason for Visit * Reason Onset Date Comments Scheduling Appointments 02/01/2025 Encounter Details Date Type Department Care Team (Late st Contact Info) Description 02/01/2025 Telephone [facility] Cardiology [address] [facility] Advanced Medicine [address]th [place] [address] [place] [address] Scheduling Appointments [...] materials from doctor or pharmacy Sometimes 01/18/2025 [facility] Utilities Answer Date Recorded In the [...] often do you attend chur ch or oriental orthodox services? 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 Patient declined and asked for a . [...] documented as of this encounter Care Teams International Tax Manager Relationship Specialty Start Date End Date Mo Mitchell MD [address] [facility] [place] [address] PCP - General Internal Medicine 10/31/24 documented as of this encounter
--- OUTSIDE RECORDS SUMMARY | 2025-02-13 13:36 | XMS_ITS | Referral Summary ---
Author Organization [facility] Address [address] [place] [address] Care Team Providers Care Kaitara Taraka Name Role Phone Mo Mitchell MD Primary Care Provider [phone] Encounters Date Type Department Care Team Description 02/12/2025 2:30 PM CDT Home Care Visit [address] [place] [address] Nayely Pedroza, BRITTANIE SN HOME VISIT 02/07/2025 Telephone [facility] Infectious Diseases [address] [place] [phone] Rosangela Simental, [facility] 02/07/2025 9:00 AM CDT Home Care Visit [address] [place] [address] Pia Swan, BRITTANIE SN HOME VISIT 02/07/2025 10:00 AM CDT Home Care Visit [address] [place] [address] Isabelle Campbell, OT OT INITIAL EVALUATION 02/06/2025 2:00 PM CDT Home Care Visit [address] [place] [address] Thang Solorzano, PT PT INITIAL EVALUATION 02/05/2025 Home Care Visit [address] [place] [address] Pia Moon, RN TELEPHONE ENCOUNTER 02/01/2025 Telephone [facility] Cardiology [address] [facility] 8th [place] [address] [place] [phone] Nani Melchor, STAN Scheduling Appointments 01/31/2025 Plan of Care Documentation [address] [place] [address] 01/31/2025 2:00 PM CDT Home Care Visit [address] [place] [address] Nayely Pedroza, BRITTANIE SN OASIS RECERTIFICATION 01/29/2025 Home Care Visit [address] [place] [address] Nayely Pedroza, BRITTANIE TELEPHONE ENCOUNTER 01/28/2025 Home Care Visit [address] [place] [address] Nayely Pedroza, BRITTANIE TELEPHONE ENCOUNTER 01/24/2025 9:40 AM CDT Office Visit [facility] Infectious Diseases [address] [facility] [address] [place] [phone] Dorothea Stephen, BRAXTON MSSA bacteremia (Primary Dx) 01/22/2025 12:40 PM CDT - 01/22/2025 11:59 PM CDT Hospital Encounter [facility] [address] [place], [place] [id number] Discharge Disposition: Discharge to home or self care 01/22/2025 12:00 PM CDT Home Care Visit [address] [place] [address] Nayely Pedroza, RN SN HOME VISIT 01/18/2025 Plan of Care Documentation [address] [place] [address] 01/18/2025 10:30 AM CDT Home Care Visit [address] [place] [address] Billy Zarco, BRITTANIE SN OASIS RESUMPTION OF CARE 01/17/2025 Orders Only [facility] Cardiology [address] [place] [phone] Oz Noble MD 01/17/2025 Home Care Visit [address] [place] [address] Pia Moon, BRITTANIE SN OASIS TRANSFER W/OUT DC 01/16/2025 Home Care Visit [address] [place] [address] Pia Moon, RN TELEPHONE ENCOUNTER 01/15/2025 10:00 AM CDT Office Visit [facility] Cardiothoracic Surgery [address] [facility] 8th Floor [address] Room [address] [place] [phone] Bo Fried MD Mass of left cardiac ventricle 01/15/2025 8:15 AM CDT - 01/15/2025 11:59 PM CDT Hospital Encounter [facility] Cardiac Diagnostic Lab [address] [facility] 8th [place] [phone] Bo Fried MD MSSA bacteremia; Thrombocytopenia Discharge Disposition: Discharge to home or self care 01/14/2025 Telephone [facility] [address] [place] [address] [address] [place] [phone] Ondina Salas [facility] 01/11/2025 Telephone [facility] [address] [place] [address] [address] [place] [address] Vidhi Martin 01/09/2025 Telephone [facility] Infectious Diseases [address] [place] [address] [address] [place] [address] Sidney Gould Jr., RN 01/08/2025 Telephone [facility] [address] [place] [address] [address] [place] [address] Vidhi Martin 01/01/2025 2:10 PM CDT - 01/01/2025 11:59 PM CDT Hospital Encounter [facility] [address] [place] [address] Discharge Disposition: Discharge to home or self care 01/01/2025 Telephone [facility] Infectious Diseases [address] [facility] [address] [place] [address] Sidney Gould Jr., BRITTANIE 01/01/2025 2:00 PM CDT Home Care Visit [address] [place] [address] Nayely Pedroza, BRITTANIE SN HOME VISIT 12/31/2024 Telephone [facility] Cardiology [facility] 8th [place] [address] [place] [address] Nani Melchor, BRAXTON 12/31/2024 Orders Only [facility] Infectious Diseases [address] [facility] [address] [place] [address] CaddoDorothea Small, BRAXTON 12/28/2024 11:00 AM CDT Home Care Visit [address] [place] [address] Nayely Pedroza, BRITTANIE SN HOME VISIT 12/27/2024 Telephone [facility] Infectious Diseases [address] [facility] [address] [place] [phone] Dorothea Stephen, BRAXTON 12/27/2024 9:13 AM CDT - 12/27/2024 11:59 PM CDT Hospital Encounter [facility] [address] [place] [address] Discharge Disposition: Discharge to home or self care 12/27/2024 2:00 PM CDT Home Care Visit [address] [place] [address] Thang Solorzano, PT PT DISCIPLINE DISCHARGE 12/27/2024 8:40 AM CDT Office Visit [facility] Infectious Diseases [address] [facility] [address] [place] [phone] Dorothea Stephen, SALON STYLIST MSSA bacteremia (Primary Dx); Encounter for screening examination for sexually transmitted disease 12/25/2024 Telephone [facility] Medicine [facility] [address] [facility] [address] [place] [address] Veronika Ocampo MD 12/21/2024 Orders Only [facility] Cardiology [address] [facility] 8th [place] [address] [place] [address] Nani Melchor NP 12/21/2024 11:30 AM CDT Home Care Visit [address] [place] [address] Nayely Pedroza, BRITTANIE SN HOME VISIT 12/21/2024 2:00 PM CDT Home Care Visit [address] [place] [address] Thang Solorzano, PT PT HOME VISIT 12/19/2024 Home Care Visit [address] [place] [address] Thang Solorzano, PT CASE COMMUNICATION 12/19/2024 11:00 AM CDT Home Care Visit [address] [place] [address] Thang Solorzano, PT PT HOME VISIT 12/13/2024 10:45 AM CDT Home Care Visit [address] [place] [address] Khushboo Jarvis, PT PT HOME VISIT 12/11/2024 1:00 PM CDT Home Care Visit [address] [place] [address] Nayely Pedroza, BRITTANIE SN HOME VISIT 12/11/2024 2:30 PM CDT Home Care Visit [address] [place] [address] Khushboo Jarvis, PT PT HOME VISIT 12/07/2024 SHOP/CHAP Subsequent Outreach [facility] OP CASE MANAGEMENT [address] [place] [address] Neeta Ott, RN 12/06/2024 11:00 AM CDT Home Care Visit [address] [place] [address] Isabelle Campbell, OT OT INITIAL EVALUATION 12/06/2024 12:30 PM CDT Home Care Visit [address] [place] [address] Nayely Pedroza, RN SN HOME VISIT 12/05/2024 SHOP/CHAP Subsequent Outreach [facility] OP CASE MANAGEMENT [address] [place] [address] Neeta Ott, RN 12/04/2024 SHOP/CHAP Subsequent Outreach [facility] OP CASE MANAGEMENT [address] [place] [address] Neeta Ott, RN 12/04/2024 Home Care Visit [address] [place] [address] Nayely Pedroza, RN CARE CONFERENCE 12/03/2024 Home Care Visit [address] [place] [address] Billy Zarco, RN TELEPHONE ENCOUNTER 12/03/2024 Home Care Visit [address] [place] [address] Thang Solorzano, PT TELEPHONE ENCOUNTER 12/03/2024 10:00 AM CDT Home Care Visit [address] [place] [address] Thang Solorzano, PT PT INITIAL EVALUATION 12/03/2024 1:10 PM CDT Telemedicine [address] [place] [address] Yamilex Mathew NP Torsades de pointes (HCC) (Primary Dx); MSSA bacteremia 12/01/2024 Plan of Care Documentation [address] [address] [address] [place] [address] 12/01/2024 12:00 PM CDT Home Care Visit [address] [address] [address] [place] [address] Billy Zarco, BRITTANIE SN OASIS START OF CARE 11/30/2024 Orders Only [facility] Cardiothoracic Surgery [address] [facility] 8th Floor [address] [place], [place] [phone] Lee Elena MD Mass of left cardiac ventricle (Primary Dx) 11/29/2024 Telephone [facility] [address] [facility] [address] [place] [address] Dora Sandra 11/29/2024 Orders Only Internal Medicine Alex Wynn MD 11/29/2024 SHOP/CHAP Initial Outreach [facility] OP CASE MANAGEMENT [address] [place] [address] Neeta Ott RN 11/29/2024 SHOP/CHAP Initial Eligibility Review [facility] OP CASE MANAGEMENT [address] [place] [address] Neeta Ott RN 11/28/2024 Home Care Visit [address] [address] [address] [place] [address] Hortensia Valentino, BRITTANIE SN TRIAGE ENCOUNTER 11/28/2024 Orders Only [facility] Cardiothoracic Surgery [address] [facility] 8th Floor [address] [place] [address] Bo Fried MD MSSA bacteremia (Primary Dx); Thrombocytopenia 10/31/2024 2:44 AM CDT - 11/28/2024 3:29 PM CDT Hospital Encounter [address] [address] Rahul Ramirez MD Vazquez Guillamet, MD Arnulfo Beyer, MD Kassy Rae, MD Leo Killian, Alex Bhatia MD Torsades de pointes (HCC) (Primary Dx); Cardiac arrest (HCC); Anorexia; Electrolyte abnormality; Acute pain [R52]; Painful respiration [R07.1]; Costochondritis [M94.0]; Idiopathic peripheral neuropathy [G60.9]; MSSA bacteremia Discharge Disposition: Discharge to home or self care 11/23/2024 Telephone [facility] [address] [facility] [address] [place] [address] Dora Sandra 11/14/2024 1:40 PM CDT Anesthesia Event [facility] [address] [place] [phone] Rudy Licona MD from Last 3 Months [...] diarrhea 100 mL 11/29/19 25 Active multivit bflvclqt-qvtq-EF -calcium (THERA-M) 9 mg iron-400 mcg tabletIndication [...] daily until blood thinner is received from 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 Utilities Answer Date Recorded In the past 12 months has th e [employer], [employer], oil, or water [employer] threatened to shut off services in your [...] often do you attend chur ch or mu-ism services? Never 11/29/2024 Do you belong to any clubs o r organizations such as bahai groups, unions, fraternal or athletic groups, or [...] were you homeless or living in a chcf (including now)? No 11/29/2024 Personal Safety Answer Date Recorded Have you ever been in or are you currently in a harmful physical or emotional relationship or is someone making you feel afraid or unsafe? 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 Misc see comment SHONA RAMIREZ Comment:Credited, test not i ndicated. Blood 01/22/2025 12:4 0 PM CDT 01/24/2025 2:14 PM CDT us Notinfile Unknown LAB BLOOD ORDERABLES Final Res ult SHONA RAMIREZ [facility] Department of Laboratories [place], [place] [id number] [facility] * eGFR (01/22/2025 12:40 PM [...] Unknown LAB BLOOD ORDERABLES Final Res ult [facility] Department [place] [address] * Differential, auto (01/22/2025 12:40 PM CDT) Neutrophil abs 2.80 1.50 - 6.50 K/cumm Imm gran abs 0.00 0.00 - 0.10 K/cumm [facility] Lymphocyte abs 2.66 0.80 - 3.30 K/cumm [facility] Monocyte abs 0.21 0.20 - 0.80 K/cumm [facility] Eosinophil abs 0.14 0.00 - 0.50 K/cumm [facility] Basophil abs 0.05 0.00 - 0.10 K/cumm [facility] Neutrophil pct 47.7 % [facility] Comment: Interpretive Data Percent cell count reference ranges are not reported, since discordance with absolute values may lead to misinterpretation of CBC data. Current Interpretive Data was last revised on 2017. Imm gran pct 0.0 % [facility] Comment: Interpretive Data Percent cell count reference ranges are not reported, since discordance with absolute values may lead to misinterpretation of CBC data. Current Interpretive Data was last revised on 2017. Lymphocyte pct 45.4 % [facility] Comment: Interpretive Data Percent cell count reference ranges are not reported, since discordance with absolute values may lead to misinterpretation of CBC data. Current Interpretive Data was last revised on 2017. Monocyte pct 3.6 % [facility] Comment: Interpretive Data Percent cell count reference ranges are not reported, since discordance with absolute values may lead to misinterpretation of CBC data. Current Interpretive Data was last revised on 2017. Eosinophil pct 2.4 % [facility] Comment: Interpretive Data Percent cell count reference ranges are not reported, since discordance with absolute values may lead to misinterpretation of CBC data. Current Interpretive Data was last revised on 2017. Basophil pct 0.9 % [facility] Comment: Interpretive Data Percent cell count reference ranges are not reported, since discordance with absolute values may lead to misinterpretation of CBC data. Current Interpretive Data was last revised on 2017. Blood 01/22/2025 12:4 0 PM CDT 01/22/2025 3:52 PM CDT us Notinfile Unknown LAB BLOOD ORDERABLES Final Res ult [facility] [place] [place] [address] * (ABNORMAL) Iron profile w/ IBC (01/22/2025 12:40 PM CDT) Iron 60 35 - 145 mcg/dL TIBC 322 250 - 400 mcg/dL [facility] Transferrin saturation 19(L) 20 - 50 % [facility] Blood 01/22/2025 12:4 0 PM CDT 01/22/2025 3:52 PM CDT us Notinfile Unknown LAB BLOOD ORDERABLES Final Res ult [facility] Department [place] [address] * (ABNORMAL) CBC with auto differential (01/22/2025 12:40 PM CDT) [facility] WBC 5.86 3.80 - 9.90 K/cumm Hgb 12.9 11.9 - 15.5 g/dL [facility] Hct 39.0 35.6 - 45.5 % [facility] Plt 170 150 - 400 K/cumm [facility] MPV 11.0 9.1 - 12.3 fL [facility] RBC 4.01 3.90 - 5.20 M/cumm [facility] MCV 97.3(H) 81.3 - 96.4 fL [facility] MCH 32.2 27.1 - 33.3 pg [facility] MCHC 33.1 32.3 - 35.7 g/dL [facility] RDW CV 13.4 11.1 - 14.9 % [facility] RDW SD 47.5 35.7 - 48.1 fL [facility] NRBC abs 0.00 0.00 - 0.01 K/cumm [facility] Blood 01/22/2025 12:4 0 PM CDT 01/22/2025 3:52 PM CDT us Notinfile Unknown LAB BLOOD ORDERABLES Final Res ult Performing Organization Address [facility] de Phone Number [facility] [place] [employer] [place] [address] * Magnesium (01/22/2025 12:40 PM CDT) [facility] Magnesium 2.0 1.4 - 2.5 mg/dL Blood 01/22/2025 12:4 0 PM CDT 01/22/2025 3:52 PM CDT us Notinfile Unknown LAB BLOOD ORDERABLES Final Res ult Performing Organization Address [facility] Co de Phone Number [facility] [place] [address] * Folate (01/22/2025 12:40 PM CDT) [facility] Folic acid >20.0 >=5.0 ng/mL Blood 01/22/2025 12:4 0 PM CDT 01/22/2025 3:52 PM CDT us Notinfile Unknown LAB BLOOD ORDERABLES Final Res ult Performing Organization Address [facility] Co de Phone Number [facility] Department [place] [address] * Vitamin B12 (01/22/2025 12:40 PM CDT) [facility] Vitamin B12 815 230 - 1,250 pg/mL Blood 01/22/2025 12:4 0 PM CDT 01/22/2025 3:52 PM CDT us Notinfile Unknown LAB BLOOD ORDERABLES Final Res ult Performing Organization Address [facility] de Phone Number [facility] [place] [address] * (ABNORMAL) Comprehensive metabolic panel (01/22/2025 12:40 PM CDT) [facility] Sodium 135 135 - 145 mmol/L Potassium, pl 3.4 3.3 - 4.9 mmol/L [facility] Chloride 98 97 - 110 mmol/L [facility] CO2 23 22 - 32 mmol/L [facility] Anion gap 14 2 - 15 mmol/L [facility] BUN 9 6 - 25 mg/dL [facility] Creatinine 0.63 0.60 - 1.10 mg/dL [facility] Glucose 85 70 - 199 mg/dL [facility] Comment: Interpretive Data Fasting glucose >/= [...] 2022. Calcium 10.1 8.5 - 10.3 mg/dL [facility] Bilirubin, total 0.4 0.1 - 1.2 mg/dL [facility] Protein, pl 7.5 6.5 - 8.5 g/dL [facility] Albumin 4.1 3.5 - 5.0 g/dL [facility] Alk phos 139(H) 40 - 130 Units/L [facility] ALT 33 7 - 45 Units/L [facility] AST 58(H) 10 - 45 Units/L [facility] Blood 01/22/2025 12:4 0 PM CDT 01/22/2025 3:52 PM CDT us Notinfile Unknown LAB BLOOD ORDERABLES Final Res ult [facility] Department [place] [address] * TRANSTHORACIC ECHO (TTE) COMPLETE W DOPPLER/CF W CONTRAST (01/15/2025 9:57 AM CDT) EF Mod BP 55 % CONS SCIMAGE Anatomical Region Laterality Modality Ultrasound 01/15/2025 8:50 AM CDT Narrative 01/15/2025 11:28 AM CDT [facility] [place] [address] Transthoracic Echocardiographic Report Patient Name: HAYLEY LEÓN L : 1990 (34y 11m) Gender: F Study Date: 01/15/2025 08:50:13 AM Ht(Inch): 61 Wt(Lb): 102.07 BSA: 1.41 Automotive Technician: Roza. Watkins [facility] Location: [facility] Order Provider: BO FRIED Heart Rate: 81 [...] Note Italo Hill MD PhD - 01/15/2025 [facility] [place] [address] Transthoracic Echocardiographic Report Patient Name: HAYLEY LEÓN L : 1990 (34y 11m) Gender: F Study Date: 01/15/2025 08:50:13 AM Ht(Inch): 61 Wt(Lb): 102.07 BSA: 1.41 Automotive Technician: Roza. Watkins [facility] Location: [facility] Order Provider:BO FRIED Heart Rate: 81 BMI: [...] LA Length 2C 3.64 cm MV Decel Mtxi912.25 msec [ 104.00 - 258.00 ] LA [...] NP LAB BLOOD ORDERABLES Krystyna meyers Result [facility] Department [place] [address] * (ABNORMAL) Basic metabolic panel (01/01/2025 2:10 PM CDT) Sodium 139 135 - 145 mmol/L Potassium, pl 2.9(L) 3.3 - 4.9 mmol/L [facility] Chloride 98 97 - 110 mmol/L [facility] CO2 26 22 - 32 mmol/L [facility] Anion gap 15 2 - 15 mmol/L [facility] BUN 11 6 - 25 mg/dL [facility] Creatinine 0.63 0.60 - 1.10 mg/dL [facility] Glucose 91 70 - 199 mg/dL [facility] Comment: Interpretive Data Fasting glucose >/= [...] 2022. Calcium 9.2 8.5 - 10.3 mg/dL [facility] Blood 01/01/2025 2:10 PM CDT 01/01/2025 6:04 PM CDT [facility]LO[facility] ORDERABLES Krystyna l Result Performing Organization Address [facility] Co de Phone Number [facility] [place] [employer] [place] [address] * Glucose, random (Outreach) (12/27/2024 9:13 AM [...] 9:13 AM CDT 12/27/2024 10:38 AM CDT [facility] Cecy [place] SALON STYLIST LAB BLOOD ORDERABLES Krystyna l Result Performing Organization Address [facility] Co de Phone Number [facility] Department [place] [employer] [place] [address] * eGFR (12/27/2024 9:13 AM CDT) eGFR [...] 12/27/2024 10:50 AM CDT us Dorothea Stephen SALON STYLIST LAB BLOOD ORDERABLES Krystyna meyers Result [facility] Department [place] [address] * Differential, auto (12/27/2024 9:13 AM CDT) Neutrophil abs 3.36 1.50 - 6.50 K/cumm Imm gran abs 0.01 0.00 - 0.10 K/cumm [facility] Lymphocyte abs 1.97 0.80 - 3.30 K/cumm [facility] Monocyte abs 0.37 0.20 - 0.80 K/cumm [facility] Eosinophil abs 0.18 0.00 - 0.50 K/cumm [facility] Basophil abs 0.04 0.00 - 0.10 K/cumm [facility] Neutrophil pct 56.7 % [facility] Comment: Interpretive Data Percent cell count reference ranges are not reported, since discordance with absolute values may lead to misinterpretation of CBC data. Current Interpretive Data was last revised on 2017. Imm gran pct 0.2 % [facility] Comment: Interpretive Data Percent cell count reference ranges are not reported, since discordance with absolute values may lead to misinterpretation of CBC data. Current Interpretive Data was last revised on 2017. Lymphocyte pct 33.2 % [facility] Comment: Interpretive Data Percent cell count reference ranges are not reported, since discordance with absolute values may lead to misinterpretation of CBC data. Current Interpretive Data was last revised on 2017. Monocyte pct 6.2 % [facility] Comment: Interpretive Data Percent cell count reference ranges are not reported, since discordance with absolute values may lead to misinterpretation of CBC data. Current Interpretive Data was last revised on 2017. Eosinophil pct 3.0 % [facility] Comment: Interpretive Data Percent cell count reference ranges are not reported, since discordance with absolute values may lead to misinterpretation of CBC data. Current Interpretive Data was last revised on 2017. Basophil pct 0.7 % [facility] Comment: Interpretive Data Percent cell count reference ranges are not reported, since discordance with absolute values may lead to misinterpretation of CBC data. Current Interpretive Data was last revised on 2017. Blood 12/27/2024 9:13 AM CDT 12/27/2024 10:37 AM CDT Dorothea Stephen SALON STYLIST LAB BLOOD ORDERABLES Krystyna meyers Result [facility] Department [place] [address] * (ABNORMAL) Comprehensive metabolic panel, without glucose (Outreach) (12/27/2024 9:13 AM CDT) Sodium 136 135 - 145 mmol/L Potassium, pl 2.9(L) 3.3 - 4.9 mmol/L [facility] Chloride 98 97 - 110 mmol/L [facility] CO2 24 22 - 32 mmol/L [facility] Anion gap 14 2 - 15 mmol/L [facility] BUN 9 6 - 25 mg/dL [facility] Creatinine 0.64 0.60 - 1.10 mg/dL [facility] Calcium 9.7 8.5 - 10.3 mg/dL [facility] Protein, pl 8.2 6.5 - 8.5 g/dL [facility] Albumin 4.2 3.5 - 5.0 g/dL [facility] Bilirubin, total 0.7 0.1 - 1.2 mg/dL [facility] Alk phos 175(H) 40 - 130 Units/L [facility] AST 51(H) 10 - 45 Units/L [facility] ALT 25 7 - 45 Units/L [facility] Blood 12/27/2024 9:13 AM CDT 12/27/2024 10:38 AM CDT us Dorothea Stephen NP LAB BLOOD ORDERABLES Krystyna meyers Result [facility] Department [place] [address] * (ABNORMAL) CBC with auto differential (12/27/2024 9:13 AM CDT) [facility] WBC 5.93 3.80 - 9.90 K/cumm Hgb 13.9 11.9 - 15.5 g/dL [facility] Hct 40.1 35.6 - 45.5 % [facility] Plt 138(L) 150 - 400 K/cumm [facility] MPV 11.4 9.1 - 12.3 fL [facility] RBC 4.23 3.90 - 5.20 M/cumm [facility] MCV 94.8 81.3 - 96.4 fL [facility] MCH 32.9 27.1 - 33.3 pg [facility] MCHC 34.7 32.3 - 35.7 g/dL [facility] RDW CV 13.0 11.1 - 14.9 % [facility] RDW SD 45.3 35.7 - 48.1 fL [facility] NRBC abs 0.00 0.00 - 0.01 K/cumm [facility] Blood 12/27/2024 9:13 AM CDT 12/27/2024 10:37 AM CDT Dorothea Stephen [employer] LAB BLOOD ORDERABLES Krystyna l Result Performing Organization Address City/[facility]/ZIP Co de Phone [place] [address] * Magnesium (12/27/2024 9:13 AM CDT) Magnesium 1.9 1.4 - 2.5 mg/dL Blood 12/27/2024 9:13 AM CDT 12/27/2024 10:50 AM CDT Mo Villatoro MD LAB BLOOD ORDERABLES Final Resul t Performing Organization Address [facility] [place] [address] * Blood culture Blood (12/27/2024 9:05 AM CDT) Report Final Report: No growth Blood 12/27/2024 9:05 AM CDT 12/27/2024 11:47 AM CDT Narrative [facility] - 12/31/2024 12:00 PM CDT Specimen received [...] performance characteristics have been verified by the [facility] Microbiology Laboratory. For questions about this culture, contact the Microbiology Laboratory at [phone]. Interpretive data was last revised on 24. Dorothea Stephen NP LAB MICROBIOLOGY - GENERA L ORDERABLES Final Result [facility] Department [place] [address] * Blood culture Blood (12/27/2024 9:05 AM CDT) Report Final Report: No growth Blood 12/27/2024 9:05 AM CDT 12/27/2024 11:47 AM CDT Narrative [facility] - 12/31/2024 12:00 PM CDT Specimen [...] performance characteristics have been verified by the [facility]biology [facility]. For questions about this culture, contact the Microbiology Laboratory at [phone]. Interpretive data was last revised on 24. us Dorothea Stephen NP LAB MICROBIOLOGY - GENERA L ORDERABLES Final Result Performing Organization Address [facility] Co de Phone Number [facility] Department [place] [address] * (ABNORMAL) Cystatin C (11/28/2024 10:45 AM [...] last revised on 2020. Testing performed by: [facility], [facility], [place]., [address] Blood 11/28/2024 10:4 5 AM CDT 11/28/2024 12:03 PM CDT us Alex Wynn MD LAB BLOOD ORDERABLES Final Resu lt Performing Organization Address [facility] de Phone Number [facility] Department [place] [address] * eGFR (11/27/2024 9:44 PM CDT) eGFR [...] MD LAB BLOOD ORDERABLES Krystyna mira Result [facility] Department [place] [address] * (ABNORMAL) Differential, auto (11/27/2024 9:44 PM CDT) Neutrophil abs 2.70 1.50 - 6.50 K/cumm Imm gran abs 0.03 0.00 - 0.10 K/cumm [facility] Lymphocyte abs 2.90 0.80 - 3.30 K/cumm [facility] Monocyte abs 0.50 0.20 - 0.80 K/cumm [facility] Eosinophil abs 0.13 0.00 - 0.50 K/cumm [facility] Basophil abs 0.13(H) 0.00 - 0.10 K/cumm [facility] Neutrophil pct 42.3 % [facility] Comment: Interpretive Data Percent cell count reference ranges are not reported, since discordance with absolute values may lead to misinterpretation of CBC data. Current Interpretive Data was last revised on 2017. Imm gran pct 0.5 % [facility] Comment: Interpretive Data Percent cell count reference ranges are not reported, since discordance with absolute values may lead to misinterpretation of CBC data. Current Interpretive Data was last revised on 2017. Lymphocyte pct 45.4 % [facility] Comment: Interpretive Data Percent cell count reference ranges are not reported, since discordance with absolute values may lead to misinterpretation of CBC data. Current Interpretive Data was last revised on 2017. Monocyte pct 7.8 % [facility] Comment: Interpretive Data Percent cell count reference ranges are not reported, since discordance with absolute values may lead to misinterpretation of CBC data. Current Interpretive Data was last revised on 2017. Eosinophil pct 2.0 % [facility] Comment: Interpretive Data Percent cell count reference ranges are not reported, since discordance with absolute values may lead to misinterpretation of CBC data. Current Interpretive Data was last revised on 2017. Basophil pct 2.0 % [facility] Comment: Interpretive Data Percent cell count reference ranges are not reported, since discordance with absolute values may lead to misinterpretation of CBC data. Current Interpretive Data was last revised on 2017. Blood 11/27/2024 9:44 PM CDT 11/27/2024 10:41 PM CDT Lee Elena MD LAB BLOOD ORDERABLES Krystyna meyers Result [facility] Department [place] [address] * (ABNORMAL) CBC with auto differential (11/27/2024 9:44 PM CDT) WBC 6.39 3.80 - 9.90 K/cumm Hgb 10.5(L) 11.9 - 15.5 g/dL [facility] Hct 32.5(L) 35.6 - 45.5 % [facility] Plt 419(H) 150 - 400 K/cumm [facility] MPV 9.3 9.1 - 12.3 fL [facility] RBC 3.10(L) 3.90 - 5.20 M/cumm [facility] MCV 104.8(H) 81.3 - 96.4 fL [facility] MCH 33.9(H) 27.1 - 33.3 pg [facility] MCHC 32.3 32.3 - 35.7 g/dL [facility] RDW CV 18.6(H) 11.1 - 14.9 % [facility] RDW SD 71.7(H) 35.7 - 48.1 fL [facility] NRBC abs 0.00 0.00 - 0.01 K/cumm [facility] Blood 11/27/2024 9:44 PM CDT 11/27/2024 10:41 PM CDT Lee Elena MD LAB BLOOD ORDERABLES Krystyna l Result Performing Organization Address City/[facility] Co de Phone Number [facility] Department [place] [address] * (ABNORMAL) Vitamin D 25 hydroxy (11/27/2024 9:44 PM CDT) Vitamin D 25-OH 27(L) 30 - 80 ng/mL Blood 11/27/2024 9:44 PM CDT 11/27/2024 10:41 PM CDT Alex Wynn MD LAB BLOOD ORDERABLES Final Resu lt Performing Organization Address [facility] de Phone Number [facility] Department [place] [address] * Protime-INR (11/27/2024 9:44 PM CDT) PT 10.2 9.7 - 13.0 sec INR 0.95 0.90 - 1.20 [facility] Comment: Interpretive data Oral anticoagulant therapeutic ranges: Venous thromboembolism prophylaxis or treatment: 2.0-3.0 CARDIOLOGY Standard range: 2.0-3.0 High-intensity range: 2.5-3.5 Refer to indication-specific guidelines for appropriate target ranges for prosthetic heart valve replacement. Current interpretive data was last revised on 2019. Blood 11/27/2024 9:44 PM CDT 11/27/2024 10:45 PM CDT Lee Elena MD LAB BLOOD ORDERABLES Krystyna l Result Performing Organization Address [facility] Co de Phone Number [facility] [place] [address] * (ABNORMAL) Phosphorus (11/27/2024 9:44 PM CDT) [facility] Phosphorus, pl 6.6(H) 2.3 - 4.5 mg/dL Blood 11/27/2024 9:44 PM CDT 11/27/2024 10:41 PM CDT Lee Elena MD LAB BLOOD ORDERABLES [place] [address] * Magnesium (11/27/2024 9:44 PM CDT) [facility] Magnesium 1.6 1.4 - 2.5 mg/dL Blood 11/27/2024 9:44 PM CDT 11/27/2024 10:41 PM CDT Lee Elena MD LAB BLOOD ORDERABLES Krystyna l Result Performing Organization Address City/[facility] [place] [address] * (ABNORMAL) Hepatic function panel (11/27/2024 9:44 PM CDT) [facility] Bilirubin, total 0.4 0.1 - 1.2 mg/dL Bilirubin, direct 0.2 0.1 - 0.3 mg/dL [facility] Protein, pl 7.3 6.5 - 8.5 g/dL [facility] Albumin 3.4(L) 3.5 - 5.0 g/dL [facility] Alk phos 133(H) 40 - 130 Units/L [facility] ALT 17 7 - 45 Units/L [facility] AST 36 10 - 45 Units/L [facility] Blood 11/27/2024 9:44 PM CDT 11/27/2024 10:41 PM CDT Lee Elena MD LAB BLOOD ORDERABLES Krytsyna l Result [facility] Department [place] [address] * (ABNORMAL) Basic metabolic panel (11/27/2024 9:44 PM CDT) [facility] Sodium 139 135 - 145 mmol/L Potassium, pl 4.3 3.3 - 4.9 mmol/L [facility] Chloride 101 97 - 110 mmol/L [facility] CO2 31 22 - 32 mmol/L [facility] Anion gap 7 2 - 15 mmol/L [facility] BUN 18 6 - 25 mg/dL [facility] Creatinine 0.50(L) 0.60 - 1.10 mg/dL [facility] Glucose 99 70 - 199 mg/dL [facility] Comment: Interpretive Data Fasting glucose >/= [...] 2022. Calcium 10.0 8.5 - 10.3 mg/dL [facility] Blood 11/27/2024 9:44 PM CDT 11/27/2024 10:41 PM CDT Lee Elena MD LAB BLOOD ORDERABLES Krystyna l Result Performing Organization Address [facility]/ZIP Co de Phone Number [facility] Department [place] [address] * eGFR (11/26/2024 9:38 PM CDT) [facility] eGFR >90 >=60 mL/min/1. 73 m2 Comment: [...] MD LAB BLOOD ORDERABLES Krystyna meyers Result [facility] Department [place] [address] * (ABNORMAL) Differential, auto (11/26/2024 9:38 PM CDT) [facility] Neutrophil abs 2.02 1.50 - 6.50 K/cumm Imm gran abs 0.03 0.00 - 0.10 K/cumm [facility] Lymphocyte abs 3.04 0.80 - 3.30 K/cumm [facility] Monocyte abs 0.56 0.20 - 0.80 K/cumm [facility] Eosinophil abs 0.10 0.00 - 0.50 K/cumm [facility] Basophil abs 0.11(H) 0.00 - 0.10 K/cumm [facility] Neutrophil pct 34.4 % [facility] Comment: Interpretive Data Percent cell count reference ranges are not reported, since discordance with absolute values may lead to misinterpretation of CBC data. Current Interpretive Data was last revised on 2017. Imm gran pct 0.5 % [facility] Comment: Interpretive Data Percent cell count reference ranges are not reported, since discordance with absolute values may lead to misinterpretation of CBC data. Current Interpretive Data was last revised on 2017. Lymphocyte pct 51.9 % [facility] Comment: Interpretive Data Percent cell count reference ranges are not reported, since discordance with absolute values may lead to misinterpretation of CBC data. Current Interpretive Data was last revised on 2017. Monocyte pct 9.6 % [facility] Comment: Interpretive Data Percent cell count reference ranges are not reported, since discordance with absolute values may lead to misinterpretation of CBC data. Current Interpretive Data was last revised on 2017. Eosinophil pct 1.7 % [facility] Comment: Interpretive Data Percent cell count reference ranges are not reported, since discordance with absolute values may lead to misinterpretation of CBC data. Current Interpretive Data was last revised on 2017. Basophil pct 1.9 % [facility] Comment: Interpretive Data Percent cell count reference ranges are not reported, since discordance with absolute values may lead to misinterpretation of CBC data. Current Interpretive Data was last revised on 2017. Blood 11/26/2024 9:38 PM CDT 11/26/2024 10:36 PM CDT us Lee Elena MD LAB BLOOD ORDERABLES Krystyna meyers Result [facility] [place] [address] * (ABNORMAL) CBC with auto differential (11/26/2024 9:38 PM CDT) WBC 5.86 3.80 - 9.90 K/cumm Hgb 9.7(L) 11.9 - 15.5 g/dL [facility] Hct 29.7(L) 35.6 - 45.5 % [facility] Plt 398 150 - 400 K/cumm [facility] MPV 9.2 9.1 - 12.3 fL [facility] RBC 2.87(L) 3.90 - 5.20 M/cumm [facility] MCV 103.5(H) 81.3 - 96.4 fL [facility] MCH 33.8(H) 27.1 - 33.3 pg [facility] MCHC 32.7 32.3 - 35.7 g/dL [facility] RDW CV 18.7(H) 11.1 - 14.9 % [facility] RDW SD 71.5(H) 35.7 - 48.1 fL [facility] NRBC abs 0.00 0.00 - 0.01 K/cumm [facility] Blood 11/26/2024 9:38 PM CDT 11/26/2024 10:36 PM CDT Lee Elena MD LAB BLOOD ORDERABLES Krystyna l Result Performing Organization Address [facility] de Phone Number [facility] [place] [employer] [place] [address] * (ABNORMAL) Protime-INR (11/26/2024 9:38 PM CDT) [facility] PT 9.5(L) 9.7 - 13.0 sec INR 0.88(L) 0.90 - 1.20 [facility] Comment: Interpretive data Oral anticoagulant therapeutic ranges: Venous thromboembolism prophylaxis or treatment: 2.0-3.0 CARDIOLOGY Standard range: 2.0-3.0 High-intensity range: 2.5-3.5 Refer to indication-specific guidelines for appropriate target ranges for prosthetic heart valve replacement. Current interpretive data was last revised on 2019. Blood 11/26/2024 9:38 PM CDT 11/26/2024 10:43 PM CDT Lee Elena MD LAB BLOOD ORDERABLES Krystyna l Result Performing Organization Address [facility] de Phone Number [facility] Department [place] [address] * (ABNORMAL) Phosphorus (11/26/2024 9:38 PM CDT) Pathologist [facility] Phosphorus, pl 5.7(H) 2.3 - 4.5 mg/dL Blood 11/26/2024 9:38 PM CDT 11/26/2024 10:42 PM CDT Lee Elena MD LAB BLOOD ORDERABLES Krystyna l Result Performing Organization Address City/[facility]/ZIP [place] [address] * Magnesium (11/26/2024 9:38 PM CDT) [facility] Magnesium 2.1 1.4 - 2.5 mg/dL Blood 11/26/2024 9:38 PM CDT 11/26/2024 10:42 PM CDT Lee Elena MD LAB BLOOD ORDERABLES Krystyna l Result Performing Organization Address [facility] [place] [address] * (ABNORMAL) Hepatic function panel (11/26/2024 9:38 PM CDT) Pathologist [facility] Bilirubin, total 0.3 0.1 - 1.2 mg/dL Bilirubin, direct 0.2 0.1 - 0.3 mg/dL [facility] Protein, pl 6.5 6.5 - 8.5 g/dL [facility] Albumin 2.8(L) 3.5 - 5.0 g/dL [facility] Alk phos 132(H) 40 - 130 Units/L [facility] ALT 17 7 - 45 Units/L [facility] AST 38 10 - 45 Units/L [facility] Blood 11/26/2024 9:38 PM CDT 11/26/2024 10:42 PM CDT Lee Elena MD LAB BLOOD ORDERABLES Krystyna meyers Result Performing Organization Address City/[facility]/ZIP Co de Phone Number [facility] Department [place] [address] * (ABNORMAL) Basic metabolic panel (11/26/2024 9:38 PM CDT) Pathologist [facility] Sodium 141 135 - 145 mmol/L Potassium, pl 4.1 3.3 - 4.9 mmol/L [facility] Chloride 101 97 - 110 mmol/L [facility] CO2 29 22 - 32 mmol/L [facility] Anion gap 11 2 - 15 mmol/L [facility] BUN 15 6 - 25 mg/dL [facility] Creatinine 0.54(L) 0.60 - 1.10 mg/dL [facility] Glucose 89 70 - 199 mg/dL [facility] Comment: Interpretive Data Fasting glucose >/= [...] 2022. Calcium 9.1 8.5 - 10.3 mg/dL [facility] Blood 11/26/2024 9:38 PM CDT 11/26/2024 10:42 PM CDT Lee Elena MD LAB BLOOD ORDERABLES Krystyna l Result Performing Organization Address [facility]/ZIP Co de Phone Number [facility] Department [place] [address] * TRANSTHORACIC ECHO (TTE) LIMITED/FOLLOW UP W LTD DOPPLER/CF W CONTRAST (11/26/2024 1:54 PM CDT) Estimated EF 55-60 % CONS SCIMAGE Anatomical Region Laterality Modality Ultrasound 11/26/2024 1:05 PM CDT Narrative 11/26/2024 2:37 PM CDT [facility] [place] [address] Transthoracic Echocardiographic Report Patient Name: HAYLEY LEÓN L : 1990 (34y 9m) Gender: F Study Date: 11/26/2024 01:05:04 PM Ht(Inch): 61 Wt(Lb): 98.1 BSA: 1.38 Automotive Technician: Lise De Anda Location: [id number] Order Provider: ALEX WYNN Heart Rate: 72 [...] Procedure Note Jim Malloy MD - 11/26/2024 [facility] [place] [address] Transthoracic Echocardiographic Report Patient Name: HAYLEY LEÓN L : 1990 (34y 9m) Gender: F Study Date: 11/26/2024 01:05:04 PM Ht(Inch): 61 Wt(Lb): 98.1 BSA: 1.38 Automotive Technician: Lise De Anda Location: [place] [address] Order Provider:ALEX WYNN Heart Rate: 72 BMI: [...] POCT ORDERABLES - DEVICE Fi nal Result [facility] Department [place] [address] * eGFR (11/25/2024 9:19 PM CDT) eGFR [...] MD LAB BLOOD ORDERABLES Krystyna mira Result [facility] Department [place] [address] * Differential, auto (11/25/2024 9:19 PM CDT) Pathologist [facility] Neutrophil abs 1.90 1.50 - 6.50 K/cumm Imm gran abs 0.02 0.00 - 0.10 K/cumm [facility] Lymphocyte abs 2.86 0.80 - 3.30 K/cumm [facility] Monocyte abs 0.53 0.20 - 0.80 K/cumm [facility] Eosinophil abs 0.11 0.00 - 0.50 K/cumm [facility] Basophil abs 0.09 0.00 - 0.10 K/cumm [facility] Neutrophil pct 34.5 % [facility] Comment: Interpretive Data Percent cell count reference ranges are not reported, since discordance with absolute values may lead to misinterpretation of CBC data. Current Interpretive Data was last revised on 2017. Imm gran pct 0.4 % [facility] Comment: Interpretive Data Percent cell count reference ranges are not reported, since discordance with absolute values may lead to misinterpretation of CBC data. Current Interpretive Data was last revised on 2017. Lymphocyte pct 51.9 % [facility] Comment: Interpretive Data Percent cell count reference ranges are not reported, since discordance with absolute values may lead to misinterpretation of CBC data. Current Interpretive Data was last revised on 2017. Monocyte pct 9.6 % [facility] Comment: Interpretive Data Percent cell count reference ranges are not reported, since discordance with absolute values may lead to misinterpretation of CBC data. Current Interpretive Data was last revised on 2017. Eosinophil pct 2.0 % [facility] Comment: Interpretive Data Percent cell count reference ranges are not reported, since discordance with absolute values may lead to misinterpretation of CBC data. Current Interpretive Data was last revised on 2017. Basophil pct 1.6 % [facility] Comment: Interpretive Data Percent cell count reference ranges are not reported, since discordance with absolute values may lead to misinterpretation of CBC data. Current Interpretive Data was last revised on 2017. Blood 11/25/2024 9:19 PM CDT 11/25/2024 10:49 PM CDT Lee Elena MD LAB BLOOD ORDERABLES Krystyna l Result Performing Organization Address City/[facility] Co de Phone Number [facility] Department [place] [address] * (ABNORMAL) CBC with auto differential (11/25/2024 9:19 PM CDT) WBC 5.51 3.80 - 9.90 K/cumm Hgb 10.2(L) 11.9 - 15.5 g/dL [facility] Hct 31.9(L) 35.6 - 45.5 % [facility] Plt 466(H) 150 - 400 K/cumm [facility] MPV 9.4 9.1 - 12.3 fL [facility] RBC 3.06(L) 3.90 - 5.20 M/cumm [facility] MCV 104.2(H) 81.3 - 96.4 fL [facility] MCH 33.3 27.1 - 33.3 pg [facility] MCHC 32.0(L) 32.3 - 35.7 g/dL [facility] RDW CV 19.1(H) 11.1 - 14.9 % [facility] RDW SD 72.8(H) 35.7 - 48.1 fL [facility] NRBC abs 0.00 0.00 - 0.01 K/cumm [facility] Blood 11/25/2024 9:19 PM CDT 11/25/2024 10:49 PM CDT Lee Elena MD LAB BLOOD ORDERABLES Krystyna l Result Performing Organization Address City/[facility] de Phone Number [facility] [place] [address] * Protime-INR (11/25/2024 9:19 PM CDT) Pathologist [facility] PT 10.0 9.7 - 13.0 sec INR 0.93 0.90 - 1.20 [facility] Comment: Interpretive data Oral anticoagulant therapeutic ranges: Venous thromboembolism prophylaxis or treatment: 2.0-3.0 CARDIOLOGY Standard range: 2.0-3.0 High-intensity range: 2.5-3.5 Refer to indication-specific guidelines for appropriate target ranges for prosthetic heart valve replacement. Current interpretive data was last revised on 2019. Blood 11/25/2024 9:19 PM CDT 11/25/2024 10:46 PM CDT Lee Elena MD LAB BLOOD ORDERABLES Krystyna l Result Performing Organization Address [facility] de Phone Number [facility] [place] [address] * (ABNORMAL) Phosphorus (11/25/2024 9:19 PM CDT) [facility] Phosphorus, pl 5.2(H) 2.3 - 4.5 mg/dL Blood 11/25/2024 9:19 PM CDT 11/25/2024 10:47 PM CDT Lee Elena MD LAB BLOOD ORDERABLES Krystyna l Result Performing Organization Address [facility] [place] [address] * Magnesium (11/25/2024 9:19 PM CDT) [facility] Magnesium 1.6 1.4 - 2.5 mg/dL Blood 11/25/2024 9:19 PM CDT 11/25/2024 10:47 PM CDT Lee Elena MD LAB BLOOD ORDERABLES Krystyna l Result Performing Organization Address [facility] Co de Phone Number [facility] [place] [address] * (ABNORMAL) Hepatic function panel (11/25/2024 9:19 PM CDT) Bilirubin, total 0.4 0.1 - 1.2 mg/dL Bilirubin, direct 0.2 0.1 - 0.3 mg/dL [facility] Protein, pl 6.8 6.5 - 8.5 g/dL [facility] Albumin 3.0(L) 3.5 - 5.0 g/dL [facility] Alk phos 142(H) 40 - 130 Units/L [facility] ALT 16 7 - 45 Units/L [facility] AST 35 10 - 45 Units/L [facility] Blood 11/25/2024 9:19 PM CDT 11/25/2024 10:47 PM CDT Lee Elena MD LAB BLOOD ORDERABLES Krystyna l Result Performing Organization Address [facility] de Phone Number [facility] [place] [address] * (ABNORMAL) Basic metabolic panel (11/25/2024 9:19 PM CDT) Pathologist [facility] Sodium 143 135 - 145 mmol/L Potassium, pl 4.3 3.3 - 4.9 mmol/L [facility] Chloride 104 97 - 110 mmol/L [facility] CO2 29 22 - 32 mmol/L [facility] Anion gap 10 2 - 15 mmol/L [facility] BUN 16 6 - 25 mg/dL [facility] Creatinine 0.46(L) 0.60 - 1.10 mg/dL [facility] Glucose 99 70 - 199 mg/dL [facility] Comment: Interpretive Data Fasting glucose >/= [...] 2022. Calcium 9.5 8.5 - 10.3 mg/dL [facility] Blood 11/25/2024 9:19 PM CDT 11/25/2024 10:47 PM CDT us Lee Elena MD LAB BLOOD ORDERABLES Krystyna l Result [facility] Department [place] [address] * eGFR (11/24/2024 9:18 PM CDT) eGFR [...] MD LAB BLOOD ORDERABLES Krystyna meyers Result [facility] [place] [address] * Differential, auto (11/24/2024 9:18 PM CDT) Neutrophil abs 1.96 1.50 - 6.50 K/cumm Imm gran abs 0.04 0.00 - 0.10 K/cumm [facility] Lymphocyte abs 2.69 0.80 - 3.30 K/cumm [facility] Monocyte abs 0.52 0.20 - 0.80 K/cumm [facility] Eosinophil abs 0.09 0.00 - 0.50 K/cumm [facility] Basophil abs 0.08 0.00 - 0.10 K/cumm [facility] Neutrophil pct 36.4 % [facility] Comment: Interpretive Data Percent cell count reference ranges are not reported, since discordance with absolute values may lead to misinterpretation of CBC data. Current Interpretive Data was last revised on 2017. Imm gran pct 0.7 % [facility] Comment: Interpretive Data Percent cell count reference ranges are not reported, since discordance with absolute values may lead to misinterpretation of CBC data. Current Interpretive Data was last revised on 2017. Lymphocyte pct 50.0 % [facility] Comment: Interpretive Data Percent cell count reference ranges are not reported, since discordance with absolute values may lead to misinterpretation of CBC data. Current Interpretive Data was last revised on 2017. Monocyte pct 9.7 % [facility] Comment: Interpretive Data Percent cell count reference ranges are not reported, since discordance with absolute values may lead to misinterpretation of CBC data. Current Interpretive Data was last revised on 2017. Eosinophil pct 1.7 % [facility] Comment: Interpretive Data Percent cell count reference ranges are not reported, since discordance with absolute values may lead to misinterpretation of CBC data. Current Interpretive Data was last revised on 2017. Basophil pct 1.5 % [facility] Comment: Interpretive Data Percent cell count reference ranges are not reported, since discordance with absolute values may lead to misinterpretation of CBC data. Current Interpretive Data was last revised on 2017. Blood 11/24/2024 9:18 PM CDT 11/24/2024 10:00 PM CDT Lee Elena MD LAB BLOOD ORDERABLES Krystyna l Result Performing Organization Address City/[facility]/ZIP Co de Phone Number [facility] Department [place] [address] * (ABNORMAL) CBC with auto differential (11/24/2024 9:18 PM CDT) WBC 5.38 3.80 - 9.90 K/cumm Hgb 9.4(L) 11.9 - 15.5 g/dL [facility] Hct 28.7(L) 35.6 - 45.5 % [facility] Plt 437(H) 150 - 400 K/cumm [facility] MPV 9.0(L) 9.1 - 12.3 fL [facility] RBC 2.80(L) 3.90 - 5.20 M/cumm [facility] MCV 102.5(H) 81.3 - 96.4 fL [facility] MCH 33.6(H) 27.1 - 33.3 pg [facility] MCHC 32.8 32.3 - 35.7 g/dL [facility] RDW CV 19.4(H) 11.1 - 14.9 % [facility] RDW SD 73.4(H) 35.7 - 48.1 fL [facility] NRBC abs 0.00 0.00 - 0.01 K/cumm [facility] Blood 11/24/2024 9:18 PM CDT 11/24/2024 10:00 PM CDT Lee Elena MD LAB BLOOD ORDERABLES Krystyna meyers Result Performing Organization Address [facility]/ZIP [place] [address] * Protime-INR (11/24/2024 9:18 PM CDT) Pathologist [facility] PT 10.1 9.7 - 13.0 sec INR 0.94 0.90 - 1.20 [facility] Comment: Interpretive data Oral anticoagulant therapeutic ranges: Venous thromboembolism prophylaxis or treatment: 2.0-3.0 CARDIOLOGY Standard range: 2.0-3.0 High-intensity range: 2.5-3.5 Refer to indication-specific guidelines for appropriate target ranges for prosthetic heart valve replacement. Current interpretive data was last revised on 2019. Blood 11/24/2024 9:18 PM CDT 11/24/2024 10:04 PM CDT Lee Elena MD LAB BLOOD ORDERABLES Krystyna l Result Performing Organization Address City/[facility]/ZIP [place] [address] * (ABNORMAL) Phosphorus (11/24/2024 9:18 PM CDT) [facility] Phosphorus, pl 4.7(H) 2.3 - 4.5 mg/dL Blood 11/24/2024 9:18 PM CDT 11/24/2024 10:00 PM CDT Lee Elena MD LAB BLOOD ORDERABLES [place] [address] * Magnesium (11/24/2024 9:18 PM CDT) [facility] Magnesium 2.0 1.4 - 2.5 mg/dL Blood 11/24/2024 9:18 PM CDT 11/24/2024 10:00 PM CDT Lee Elena MD LAB BLOOD ORDERABLES Krystyna l Result Performing Organization Address [facility] Co de Phone Number [facility] [place] [address] * (ABNORMAL) Hepatic function panel (11/24/2024 9:18 PM CDT) Pathologist [facility] Bilirubin, total 0.3 0.1 - 1.2 mg/dL Bilirubin, direct 0.2 0.1 - 0.3 mg/dL [facility] Protein, pl 6.4(L) 6.5 - 8.5 g/dL [facility] Albumin 2.8(L) 3.5 - 5.0 g/dL [facility] Alk phos 148(H) 40 - 130 Units/L [facility] ALT 14 7 - 45 Units/L [facility] AST 38 10 - 45 Units/L [facility] Blood 11/24/2024 9:18 PM CDT 11/24/2024 10:00 PM CDT Lee Elena MD LAB BLOOD ORDERABLES Krystyna l Result Performing Organization Address [facility] de Phone Number [facility] Department [place] [address] * (ABNORMAL) Basic metabolic panel (11/24/2024 9:18 PM CDT) Pathologist [facility] Sodium 142 135 - 145 mmol/L Potassium, pl 4.1 3.3 - 4.9 mmol/L [facility] Chloride 104 97 - 110 mmol/L [facility] CO2 30 22 - 32 mmol/L [facility] Anion gap 8 2 - 15 mmol/L [facility] BUN 16 6 - 25 mg/dL [facility] Creatinine 0.51(L) 0.60 - 1.10 mg/dL [facility] Glucose 101 70 - 199 mg/dL [facility] Comment: Interpretive Data Fasting glucose >/= [...] 2022. Calcium 9.0 8.5 - 10.3 mg/dL [facility] Blood 11/24/2024 9:18 PM CDT 11/24/2024 10:00 PM CDT us Lee Elena MD LAB BLOOD ORDERABLES Krystyna l Result Performing Organization Address City/[facility]/ZIP Co de Phone Number [facility] Department [place] [address] * POCT glucose (11/24/2024 7:49 PM CDT) [facility] Glucose, POC 104 70 - 199 mg/dL Blood 11/24/2024 7:49 PM CDT 11/24/2024 7:49 PM CDT us Alex Wynn MD LAB POCT ORDERABLES - DEVICE Fi nal Result Performing Organization Address City/[facility]/ZIP Co de Phone Number [facility] Department [place] [address] * ECG 12 lead (11/24/2024 7:01 AM CDT) Ventricular Rate EKG/Min 77 BPM [facility] Atrial Rate 77 BPM [facility] NE-Interval (MSEC) 134 ms [facility] QRS-Interval (MSEC) 70 ms [facility] QT-Interval (MSEC) 456 ms [facility] QTc 516 ms [facility] P [place] 38 degrees [facility] R [place] 36 degrees [facility] T [place] 137 degrees [facility] Diagnosis Normal sinus rhythm Low voltage QRS T wave abnormality, consider lateral ischemia Prolonged QT Abnormal ECG When compared with ECG of 23-NOV-2024 18:23, (unconfirmed) No significant change was found Confirmed by SHALINI RODRIGUEZ M.D ([id number]) on 11/27/2024 12:19:52 PM [facility] 11/24/2024 7:01 AM CDT 11/27/2024 [...] l Result [facility] Department [place] [address] * Differential, auto (11/23/2024 10:10 PM CDT) Neutrophil abs 6.22 1.50 - 6.50 K/cumm Imm gran abs 0.05 0.00 - 0.10 K/cumm [facility] Lymphocyte abs 2.05 0.80 - 3.30 K/cumm [facility] Monocyte abs 0.66 0.20 - 0.80 K/cumm [facility] Eosinophil abs 0.10 0.00 - 0.50 K/cumm [facility] Basophil abs 0.08 0.00 - 0.10 K/cumm [facility] Neutrophil pct 67.9 % [facility] Comment: Interpretive Data Percent cell count reference ranges are not reported, since discordance with absolute values may lead to misinterpretation of CBC data. Current Interpretive Data was last revised on 2017. Imm gran pct 0.5 % [facility] Comment: Interpretive Data Percent cell count reference ranges are not reported, since discordance with absolute values may lead to misinterpretation of CBC data. Current Interpretive Data was last revised on 2017. Lymphocyte pct 22.4 % [facility] Comment: Interpretive Data Percent cell count reference ranges are not reported, since discordance with absolute values may lead to misinterpretation of CBC data. Current Interpretive Data was last revised on 2017. Monocyte pct 7.2 % [facility] Comment: Interpretive Data Percent cell count reference ranges are not reported, since discordance with absolute values may lead to misinterpretation of CBC data. Current Interpretive Data was last revised on 2017. Eosinophil pct 1.1 % [facility] Comment: Interpretive Data Percent cell count reference ranges are not reported, since discordance with absolute values may lead to misinterpretation of CBC data. Current Interpretive Data was last revised on 2017. Basophil pct 0.9 % [facility] Comment: Interpretive Data Percent cell count reference ranges are not reported, since discordance with absolute values may lead to misinterpretation of CBC data. Current Interpretive Data was last revised on 2017. Blood 11/23/2024 10:1 0 PM CDT 11/23/2024 11:09 PM CDT Lee Elena MD LAB BLOOD ORDERABLES Krystyna l Result Performing Organization Address City/[facility]/ZIP Co de Phone Number [facility] Department [place] [address] * (ABNORMAL) CBC with auto differential (11/23/2024 10:10 PM CDT) WBC 9.16 3.80 - 9.90 K/cumm Hgb 9.8(L) 11.9 - 15.5 g/dL [facility] Hct 29.9(L) 35.6 - 45.5 % [facility] Plt 483(H) 150 - 400 K/cumm [facility] MPV 9.2 9.1 - 12.3 fL [facility] RBC 2.92(L) 3.90 - 5.20 M/cumm [facility] MCV 102.4(H) 81.3 - 96.4 fL [facility] MCH 33.6(H) 27.1 - 33.3 pg [facility] MCHC 32.8 32.3 - 35.7 g/dL [facility] RDW CV 19.3(H) 11.1 - 14.9 % [facility] RDW SD 72.0(H) 35.7 - 48.1 fL [facility] NRBC abs 0.00 0.00 - 0.01 K/cumm [facility] Blood 11/23/2024 10:1 0 PM CDT 11/23/2024 11:09 PM CDT Lee Elena MD LAB BLOOD ORDERABLES Krystyna l Result [facility] Department [place] [address] * Protime-INR (11/23/2024 10:10 PM CDT) PT 10.5 9.7 - 13.0 sec INR 0.97 0.90 - 1.20 [facility] Comment: Interpretive data Oral anticoagulant therapeutic [...] ORDERABLES Krystyna l Result Performing Organization Address City/[facility] [place] [address] * (ABNORMAL) Phosphorus (11/23/2024 10:10 PM CDT) Phosphorus, pl 5.5(H) 2.3 - 4.5 mg/dL Blood 11/23/2024 10:1 0 PM CDT 11/23/2024 11:09 PM CDT Lee Elena MD LAB BLOOD ORDERABLES Krystyna l Result Performing Organization Address [facility] Co de Phone Number [facility] [place] [address] * Magnesium (11/23/2024 10:10 PM CDT) Magnesium 1.5 1.4 - 2.5 mg/dL Blood 11/23/2024 10:1 0 PM CDT 11/23/2024 11:09 PM CDT Lee Elena MD LAB BLOOD ORDERABLES Krystyna l Result Performing Organization Address [facility] Co de Phone Number [facility] [place] [address] * (ABNORMAL) Hepatic function panel (11/23/2024 10:10 PM CDT) [facility] Bilirubin, total 0.4 0.1 - 1.2 mg/dL Bilirubin, direct 0.2 0.1 - 0.3 mg/dL [facility] Protein, pl 6.3(L) 6.5 - 8.5 g/dL [facility] Albumin 2.9(L) 3.5 - 5.0 g/dL [facility] Alk phos 143(H) 40 - 130 Units/L [facility] ALT 14 7 - 45 Units/L [facility] AST 37 10 - 45 Units/L [facility] Blood 11/23/2024 10:1 0 PM CDT 11/23/2024 11:09 PM CDT Lee Elena MD LAB BLOOD ORDERABLES Krystyna meyers Result [facility] Department [place] [address] * (ABNORMAL) Basic metabolic panel (11/23/2024 10:10 PM CDT) [facility] Sodium 140 135 - 145 mmol/L Potassium, pl 3.6 3.3 - 4.9 mmol/L [facility] Chloride 100 97 - 110 mmol/L [facility] CO2 31 22 - 32 mmol/L [facility] Anion gap 9 2 - 15 mmol/L [facility] BUN 15 6 - 25 mg/dL [facility] Creatinine 0.52(L) 0.60 - 1.10 mg/dL [facility] Glucose 90 70 - 199 mg/dL [facility] Comment: Interpretive Data Fasting glucose >/= [...] 2022. Calcium 9.5 8.5 - 10.3 mg/dL [facility] Blood 11/23/2024 10:1 0 PM CDT 11/23/2024 11:09 PM CDT us Lee Elena MD LAB BLOOD ORDERABLES Krystyna l Result Performing Organization Address [facility] Co de Phone Number [facility] Department [place] [address] * POCT glucose (11/23/2024 9:14 PM CDT) Glucose, POC 107 70 - 199 mg/dL Blood 11/23/2024 9:14 PM CDT 11/23/2024 9:14 PM CDT us Alex Wynn MD LAB POCT ORDERABLES - DEVICE Fi nal Result Performing Organization Address [facility] Co de Phone Number [facility] [place] [address] * ECG 12 lead (11/23/2024 6:23 PM CDT) Ventricular Rate EKG/Min 84 BPM [facility] Atrial Rate 84 BPM [facility] NE-Interval (MSEC) 118 ms [facility] QRS-Interval (MSEC) 70 ms [facility] QT-Interval (MSEC) 426 ms [facility] QTc 503 ms [facility] P [place] 23 degrees [facility] R [place] 44 degrees [facility] T [place] 136 degrees [facility] Diagnosis Normal sinus rhythm T wave abnormality, consider lateral ischemia Prolonged QT Abnormal ECG When compared with ECG of 20-NOV-2024 13:20, No significant change was found Confirmed by SHALINI RODRIGUEZ M.D ([id number]) on 11/27/2024 12:19:17 PM [facility] 11/23/2024 6:23 PM CDT 11/27/2024 12:19 PM CDT us Lee Elena MD ECG ORDERABLES Final Res ult Performing Organization Address City/[facility]/ZIP Co de Phone Number [facility] [...] ORDERABLES Krystyna l Result Performing Organization Address [facility] Co de Phone Number [facility] Department [place] [address] * (ABNORMAL) Differential, auto (11/22/2024 9:37 PM CDT) Neutrophil abs 3.27 1.50 - 6.50 K/cumm Imm gran abs 0.06 0.00 - 0.10 K/cumm [facility] Lymphocyte abs 2.86 0.80 - 3.30 K/cumm [facility] Monocyte abs 0.70 0.20 - 0.80 K/cumm [facility] Eosinophil abs 0.15 0.00 - 0.50 K/cumm [facility] Basophil abs 0.11(H) 0.00 - 0.10 K/cumm [facility] Neutrophil pct 45.8 % [facility] Comment: Interpretive Data Percent cell count reference ranges are not reported, since discordance with absolute values may lead to misinterpretation of CBC data. Current Interpretive Data was last revised on 2017. Imm gran pct 0.8 % [facility] Comment: Interpretive Data Percent cell count reference ranges are not reported, since discordance with absolute values may lead to misinterpretation of CBC data. Current Interpretive Data was last revised on 2017. Lymphocyte pct 40.0 % [facility] Comment: Interpretive Data Percent cell count reference ranges are not reported, since discordance with absolute values may lead to misinterpretation of CBC data. Current Interpretive Data was last revised on 2017. Monocyte pct 9.8 % [facility] Comment: Interpretive Data Percent cell count reference ranges are not reported, since discordance with absolute values may lead to misinterpretation of CBC data. Current Interpretive Data was last revised on 2017. Eosinophil pct 2.1 % [facility] Comment: Interpretive Data Percent cell count reference ranges are not reported, since discordance with absolute values may lead to misinterpretation of CBC data. Current Interpretive Data was last revised on 2017. Basophil pct 1.5 % [facility] Comment: Interpretive Data Percent cell count reference ranges are not reported, since discordance with absolute values may lead to misinterpretation of CBC data. Current Interpretive Data was last revised on 2017. Blood 11/22/2024 9:37 PM CDT 11/22/2024 10:34 PM CDT us Lee Elena MD LAB BLOOD ORDERABLES Krystyna meyers Result [facility] Department [place] [address] * (ABNORMAL) CBC with auto differential (11/22/2024 9:37 PM CDT) WBC 7.15 3.80 - 9.90 K/cumm Hgb 9.4(L) 11.9 - 15.5 g/dL [facility] Hct 28.9(L) 35.6 - 45.5 % [facility] Plt 542(H) 150 - 400 K/cumm [facility] MPV 9.4 9.1 - 12.3 fL [facility] RBC 2.81(L) 3.90 - 5.20 M/cumm [facility] MCV 102.8(H) 81.3 - 96.4 fL [facility] MCH 33.5(H) 27.1 - 33.3 pg [facility] MCHC 32.5 32.3 - 35.7 g/dL [facility] RDW CV 19.6(H) 11.1 - 14.9 % [facility] RDW SD 73.3(H) 35.7 - 48.1 fL [facility] NRBC abs 0.00 0.00 - 0.01 K/cumm [facility] Blood 11/22/2024 9:37 PM CDT 11/22/2024 10:34 PM CDT us Lee Elena MD LAB BLOOD ORDERABLES Krystyna meyers Result [facility] [place] [address] * Protime-INR (11/22/2024 9:37 PM CDT) [facility] PT 10.1 9.7 - 13.0 sec INR 0.94 0.90 - 1.20 [facility] Comment: Interpretive data Oral anticoagulant therapeutic ranges: Venous thromboembolism prophylaxis or treatment: 2.0-3.0 CARDIOLOGY Standard range: 2.0-3.0 High-intensity range: 2.5-3.5 Refer to indication-specific guidelines for appropriate target ranges for prosthetic heart valve replacement. Current interpretive data was last revised on 2019. Blood 11/22/2024 9:37 PM CDT 11/22/2024 10:54 PM CDT Lee Elena MD LAB BLOOD ORDERABLES Krystyna l Result Performing Organization Address [facility] Co de Phone Number [facility] [place] [address] * (ABNORMAL) Phosphorus (11/22/2024 9:37 PM CDT) Phosphorus, pl 4.9(H) 2.3 - 4.5 mg/dL Blood 11/22/2024 9:37 PM CDT 11/22/2024 10:33 PM CDT Lee Elena MD LAB BLOOD ORDERABLES Krystyna l Result Performing Organization Address [facility] Co de Phone Number [facility] [place] [address] * Magnesium (11/22/2024 9:37 PM CDT) Magnesium 1.6 1.4 - 2.5 mg/dL Blood 11/22/2024 9:37 PM CDT 11/22/2024 10:33 PM CDT Lee Elena MD LAB BLOOD ORDERABLES Krystyna l Result Performing Organization Address [facility] Co de Phone Number [facility] [place] [address] * (ABNORMAL) Hepatic function panel (11/22/2024 9:37 PM CDT) Bilirubin, total 0.4 0.1 - 1.2 mg/dL Bilirubin, direct 0.2 0.1 - 0.3 mg/dL [facility] Protein, pl 6.0(L) 6.5 - 8.5 g/dL [facility] Albumin 2.6(L) 3.5 - 5.0 g/dL [facility] Alk phos 163(H) 40 - 130 Units/L [facility] ALT 12 7 - 45 Units/L [facility] AST 41 10 - 45 Units/L [facility] Blood 11/22/2024 9:37 PM CDT 11/22/2024 10:33 PM CDT Lee Elena MD LAB BLOOD ORDERABLES Krystyna l Result Performing Organization Address [facility]/ZIP Co de Phone Number [facility] Department [place] [address] * (ABNORMAL) Basic metabolic panel (11/22/2024 9:37 PM CDT) Pathologist [facility] Sodium 138 135 - 145 mmol/L Potassium, pl 4.3 3.3 - 4.9 mmol/L [facility] Chloride 97 97 - 110 mmol/L [facility] CO2 32 22 - 32 mmol/L [facility] Anion gap 9 2 - 15 mmol/L [facility] BUN 17 6 - 25 mg/dL [facility] Creatinine 0.52(L) 0.60 - 1.10 mg/dL [facility] Glucose 104 70 - 199 mg/dL [facility] Comment: Interpretive Data Fasting glucose >/= [...] 2022. Calcium 8.8 8.5 - 10.3 mg/dL [facility] Blood 11/22/2024 9:37 PM CDT 11/22/2024 10:33 PM CDT Lee Elena MD LAB BLOOD ORDERABLES Krystyna l Result Performing Organization Address City/[facility]/ZIP Co de Phone Number [facility] [place] [address] * eGFR (11/21/2024 10:49 PM CDT) Pathologist [facility] eGFR >90 >=60 mL/min/1. 73 m2 Comment: [...] ORDERABLES Krystyna meyers Result Performing Organization Address City/[facility]/ZIP Co de Phone Number [facility] [place] [address] * (ABNORMAL) Differential, auto (11/21/2024 10:49 PM CDT) Pathologist [facility] Neutrophil abs 2.76 1.50 - 6.50 K/cumm Imm gran abs 0.05 0.00 - 0.10 K/cumm [facility] Lymphocyte abs 3.11 0.80 - 3.30 K/cumm [facility] Monocyte abs 0.61 0.20 - 0.80 K/cumm [facility] Eosinophil abs 0.17 0.00 - 0.50 K/cumm [facility] Basophil abs 0.14(H) 0.00 - 0.10 K/cumm [facility] Neutrophil pct 40.4 % [facility] Comment: Interpretive Data Percent cell count reference ranges are not reported, since discordance with absolute values may lead to misinterpretation of CBC data. Current Interpretive Data was last revised on 2017. Imm gran pct 0.7 % [facility] Comment: Interpretive Data Percent cell count reference ranges are not reported, since discordance with absolute values may lead to misinterpretation of CBC data. Current Interpretive Data was last revised on 2017. Lymphocyte pct 45.5 % [facility] Comment: Interpretive Data Percent cell count reference ranges are not reported, since discordance with absolute values may lead to misinterpretation of CBC data. Current Interpretive Data was last revised on 2017. Monocyte pct 8.9 % [facility] Comment: Interpretive Data Percent cell count reference ranges are not reported, since discordance with absolute values may lead to misinterpretation of CBC data. Current Interpretive Data was last revised on 2017. Eosinophil pct 2.5 % [facility] Comment: Interpretive Data Percent cell count reference ranges are not reported, since discordance with absolute values may lead to misinterpretation of CBC data. Current Interpretive Data was last revised on 2017. Basophil pct 2.0 % [facility] Comment: Interpretive Data Percent cell count reference ranges are not reported, since discordance with absolute values may lead to misinterpretation of CBC data. Current Interpretive Data was last revised on 2017. Blood 11/21/2024 10:4 9 PM CDT 11/22/2024 12:33 AM CDT us Lee Elena MD LAB BLOOD ORDERABLES Krystyna meyers Result [facility] Department [place] [address] * (ABNORMAL) CBC with auto differential (11/21/2024 10:49 PM CDT) WBC 6.84 3.80 - 9.90 K/cumm Hgb 10.1(L) 11.9 - 15.5 g/dL [facility] Hct 30.3(L) 35.6 - 45.5 % [facility] Plt 610(H) 150 - 400 K/cumm [facility] MPV 9.3 9.1 - 12.3 fL [facility] RBC 2.98(L) 3.90 - 5.20 M/cumm [facility] MCV 101.7(H) 81.3 - 96.4 fL [facility] MCH 33.9(H) 27.1 - 33.3 pg [facility] MCHC 33.3 32.3 - 35.7 g/dL [facility] RDW CV 19.7(H) 11.1 - 14.9 % [facility] RDW SD 71.9(H) 35.7 - 48.1 fL [facility] NRBC abs 0.00 0.00 - 0.01 K/cumm [facility] Blood 11/21/2024 10:4 9 PM CDT 11/22/2024 12:33 AM CDT us Lee Elena MD LAB BLOOD ORDERABLES Krystyna meyers Result [facility] Department [place] [address] * Protime-INR (11/21/2024 10:49 PM CDT) PT 10.7 9.7 - 13.0 sec INR 0.99 0.90 - 1.20 [facility] Comment: Interpretive data Oral anticoagulant therapeutic [...] ORDERABLES Krystyna l Result Performing Organization Address [facility] Co de Phone Number [facility] [place] [address] * (ABNORMAL) Phosphorus (11/21/2024 10:49 PM CDT) Phosphorus, pl 5.4(H) 2.3 - 4.5 mg/dL Blood 11/21/2024 10:4 9 PM CDT 11/22/2024 12:32 AM CDT Lee Elena MD LAB BLOOD ORDERABLES Krystyna l Result Performing Organization Address [facility] de Phone Number [facility] [place] [address] * Magnesium (11/21/2024 10:49 PM CDT) Magnesium 1.8 1.4 - 2.5 mg/dL Blood 11/21/2024 10:4 9 PM CDT 11/22/2024 12:32 AM CDT Lee Elena MD LAB BLOOD ORDERABLES Krystyna l Result Performing Organization Address [facility] de Phone Number [facility] [place] [address] * (ABNORMAL) Hepatic function panel (11/21/2024 10:49 PM CDT) Bilirubin, total 0.4 0.1 - 1.2 mg/dL Bilirubin, direct 0.3 0.1 - 0.3 mg/dL [facility] Protein, pl 6.2(L) 6.5 - 8.5 g/dL [facility] Albumin 2.4(L) 3.5 - 5.0 g/dL [facility] Alk phos 173(H) 40 - 130 Units/L [facility] ALT 12 7 - 45 Units/L [facility] AST 41 10 - 45 Units/L [facility] Blood 11/21/2024 10:4 9 PM CDT 11/22/2024 12:32 AM CDT Lee Elena MD LAB BLOOD ORDERABLES Krystyna l Result Performing Organization Address [facility]/ZIP Co de Phone Number [facility] Department [place] [address] * (ABNORMAL) Basic metabolic panel (11/21/2024 10:49 PM CDT) Pathologist [facility] Sodium 141 135 - 145 mmol/L Potassium, pl 3.9 3.3 - 4.9 mmol/L [facility] Chloride 100 97 - 110 mmol/L [facility] CO2 31 22 - 32 mmol/L [facility] Anion gap 10 2 - 15 mmol/L [facility] BUN 16 6 - 25 mg/dL [facility] Creatinine 0.39(L) 0.60 - 1.10 mg/dL [facility] Glucose 96 70 - 199 mg/dL [facility] Comment: Interpretive Data Fasting glucose >/= [...] 2022. Calcium 9.1 8.5 - 10.3 mg/dL [facility] Blood 11/21/2024 10:4 9 PM CDT 11/22/2024 12:32 AM CDT Lee Elena MD LAB BLOOD ORDERABLES Krystyna l Result Performing Organization Address [facility]/State/ZIP Co de Phone Number [facility] Department [place] [address] * Potassium, whole blood (11/20/2024 10:45 PM CDT) Potassium, bld 4.0 3.3 - 4.9 mmol/L Blood 11/20/2024 10:4 5 PM CDT 11/20/2024 10:51 PM CDT us Martita Hussein MD LAB BLOOD ORDERABLE S Final Result Performing Organization Address [facility] Co de Phone Number [facility] [place] [address] * eGFR (11/20/2024 7:07 PM CDT) Pathologist [facility] eGFR >90 >=60 mL/min/1. 73 m2 Comment: [...] LAB BLOOD ORDERABLES Krystyna l Result [facility] Department [place] [address] * Differential, auto (11/20/2024 7:07 PM CDT) Neutrophil abs 3.09 1.50 - 6.50 K/cumm Imm gran abs 0.09 0.00 - 0.10 K/cumm [facility] Lymphocyte abs 3.30 0.80 - 3.30 K/cumm [facility] Monocyte abs 0.65 0.20 - 0.80 K/cumm [facility] Eosinophil abs 0.15 0.00 - 0.50 K/cumm [facility] Basophil abs 0.09 0.00 - 0.10 K/cumm [facility] Neutrophil pct 42.0 % [facility] Comment: Interpretive Data Percent cell count reference ranges are not reported, since discordance with absolute values may lead to misinterpretation of CBC data. Current Interpretive Data was last revised on 2017. Imm gran pct 1.2 % [facility] Comment: Interpretive Data Percent cell count reference ranges are not reported, since discordance with absolute values may lead to misinterpretation of CBC data. Current Interpretive Data was last revised on 2017. Lymphocyte pct 44.8 % [facility] Comment: Interpretive Data Percent cell count reference ranges are not reported, since discordance with absolute values may lead to misinterpretation of CBC data. Current Interpretive Data was last revised on 2017. Monocyte pct 8.8 % [facility] Comment: Interpretive Data Percent cell count reference ranges are not reported, since discordance with absolute values may lead to misinterpretation of CBC data. Current Interpretive Data was last revised on 2017. Eosinophil pct 2.0 % [facility] Comment: Interpretive Data Percent cell count reference ranges are not reported, since discordance with absolute values may lead to misinterpretation of CBC data. Current Interpretive Data was last revised on 2017. Basophil pct 1.2 % [facility] Comment: Interpretive Data Percent cell count reference ranges are not reported, since discordance with absolute values may lead to misinterpretation of CBC data. Current Interpretive Data was last revised on 2017. Blood 11/20/2024 7:07 PM CDT 11/20/2024 7:32 PM CDT Lee Elena MD LAB BLOOD ORDERABLES Krystyna meyers Result Performing Organization Address [facility] Co de Phone Number [facility] Department [place] [address] * (ABNORMAL) CBC with auto differential (11/20/2024 7:07 PM CDT) Pathologist [facility] WBC 7.37 3.80 - 9.90 K/cumm Hgb 10.1(L) 11.9 - 15.5 g/dL [facility] Hct 31.3(L) 35.6 - 45.5 % [facility] Plt 651(H) 150 - 400 K/cumm [facility] MPV 9.4 9.1 - 12.3 fL [facility] RBC 3.07(L) 3.90 - 5.20 M/cumm [facility] MCV 102.0(H) 81.3 - 96.4 fL [facility] MCH 32.9 27.1 - 33.3 pg [facility] MCHC 32.3 32.3 - 35.7 g/dL [facility] RDW CV 20.5(H) 11.1 - 14.9 % [facility] RDW SD 76.1(H) 35.7 - 48.1 fL [facility] NRBC abs 0.00 0.00 - 0.01 K/cumm [facility] Blood 11/20/2024 7:07 PM CDT 11/20/2024 7:32 PM CDT Lee Elena MD LAB BLOOD ORDERABLES Krystyna meyers Result Performing Organization Address [facility]/ZIP Co de Phone Number [facility] [place] [address] * (ABNORMAL) aPTT (11/20/2024 7:07 PM CDT) aPTT 52(H) 28 - 38 sec Comment: Interpretive Data Heparin therapeutic range: 66.0 - 100.0 seconds. Range based on correlation with therapeutic heparin activity range of 0.3 - 0.7 Units/mL. Current interpretive data was last revised on 2023. Blood 11/20/2024 7:07 PM CDT 11/20/2024 7:38 PM CDT Narrative [facility] - 11/20/2024 7:48 PM CDT Baseline prior to enoxaparin initiation. Alex Wynn MD LAB BLOOD ORDERABLES Final Resu lt Performing Organization Address [facility] Co de Phone Number [facility] [place] [address] * Protime-INR (11/20/2024 7:07 PM CDT) Pathologist [facility] PT 11.1 9.7 - 13.0 sec INR 1.03 0.90 - 1.20 [facility] Comment: Interpretive data Oral anticoagulant therapeutic [...] ORDERABLES Krystyna l Result Performing Organization Address City/[facility]/ZIP Co de Phone Number [facility] [place] [address] * (ABNORMAL) Phosphorus (11/20/2024 7:07 PM CDT) Phosphorus, pl 5.4(H) 2.3 - 4.5 mg/dL Blood 11/20/2024 7:07 PM CDT 11/20/2024 7:32 PM CDT Lee Elena MD LAB BLOOD ORDERABLES Krystyna l Result Performing Organization Address [facility] Co de Phone Number [facility] [place] [address] * Magnesium (11/20/2024 7:07 PM CDT) Pathologist [facility] Magnesium 1.7 1.4 - 2.5 mg/dL Blood 11/20/2024 7:07 PM CDT 11/20/2024 7:32 PM CDT Lee Elena MD LAB BLOOD ORDERABLES Krystyna l Result Performing Organization Address [facility] de Phone Number [facility] Department [place] [address] * (ABNORMAL) Hepatic function panel (11/20/2024 7:07 PM CDT) Pathologist [facility] Bilirubin, total 0.4 0.1 - 1.2 mg/dL Bilirubin, direct 0.2 0.1 - 0.3 mg/dL [facility] Comment:Hemolyzed; result ma y be falsely decreased Protein, pl 6.3(L) 6.5 - 8.5 g/dL [facility] Albumin 2.6(L) 3.5 - 5.0 g/dL [facility] Alk phos 193(H) 40 - 130 Units/L [facility] ALT 12 7 - 45 Units/L [facility] AST 55(H) 10 - 45 Units/L [facility] Comment:Hemolyzed; result ma y be falsely elevated Blood 11/20/2024 7:07 PM CDT 11/20/2024 7:32 PM CDT Lee Elena MD LAB BLOOD ORDERABLES Krystyna l Result Performing Organization Address City/[facility] Co de Phone Number [facility] Department [place] [address] * Basic metabolic panel (11/20/2024 7:07 PM CDT) [facility] Sodium 142 135 - 145 mmol/L Potassium, pl 4.3 3.3 - 4.9 mmol/L [facility] Comment:Hemolyzed; Potassium value may be falsely elevated by as much as 0.3-0.5 mmol/L. Suggest redraw and reanalysis. Chloride 103 97 - 110 mmol/L [facility] CO2 27 22 - 32 mmol/L [facility] Anion gap 12 2 - 15 mmol/L [facility] BUN 16 6 - 25 mg/dL [facility] Creatinine 0.66 0.60 - 1.10 mg/dL [facility] Glucose 95 70 - 199 mg/dL [facility] Comment: Interpretive Data Fasting glucose >/= [...] 2022. Calcium 9.0 8.5 - 10.3 mg/dL [facility] Blood 11/20/2024 7:07 PM CDT 11/20/2024 7:32 PM CDT us Lee Elena MD LAB BLOOD ORDERABLES Krystyna meyers Result [facility] Department [place] [address] * ECG 12 lead (11/20/2024 1:20 PM CDT) [facility] Ventricular Rate EKG/Min 78 BPM [facility] Atrial Rate 78 BPM [facility] NE-Interval (MSEC) 126 ms [facility] QRS-Interval (MSEC) 68 ms [facility] QT-Interval (MSEC) 448 ms [facility] QTc 510 ms [facility] P [place] 22 degrees [facility] R [place] 55 degrees [facility] T [place] 124 degrees [facility] Diagnosis Normal sinus rhythm T wave abnormality, consider lateral ischemia Prolonged QT Abnormal ECG When compared with ECG of 18-NOV-2024 13:40, (unconfirmed) Nonspecific T wave abnormality no longer evident in Inferior leads T wave inversion less evident in Lateral leads Confirmed by SHALINI RODRIGUEZ M.D ([id number]) on 11/21/2024 9:46:31 AM [facility] 11/20/2024 1:20 PM CDT 11/21/2024 9:46 AM CDT us Lee Elena MD ECG ORDERABLES Final Res ult [facility] * Genomics Specimen Tracking Order Blood (11/20/2024 10:37 AM CDT) Pathologist [facility] Genomics Tracking Order Received Blood 11/20/2024 10:3 7 AM CDT 11/20/2024 11:49 AM CDT Narrative [facility] - 11/29/2024 1:58 PM CDT Please read the [facility] requisition for specimen collection requirements. us Akash Sharma MD LAB BODY FLUIDS AND STOOLS ORDERABLES Final Result [facility] [place] [address] * Genomics ([facility]) (11/20/2024 12:00 AM CDT) Blood (Peripheral Blood For Pathologist Review) 11/20/2024 11/20/2024 Narrative [facility] DIAGNOSTIC [facility] - CYTOGENETICS - 12/19/2024 12:31 PM CDT REPORT IMAGES AND/OR SCANNED DOCUMENTS ONLY VIEWABLE IN PDF FORMAT us Akash Sharma MD LAB GENETIC TEST ING Edited Result - Final [facility] DIAGNOSTIC [facility] - CYTOGENETICS [address] [place] [address] * eGFR (11/19/2024 8:20 PM CDT) eGFR [...] MD LAB BLOOD ORDERABLES Krystyna l Result [facility] Department [place] [address] * Differential, auto (11/19/2024 8:20 PM CDT) Pathologist [facility] Neutrophil abs 3.74 1.50 - 6.50 K/cumm Imm gran abs 0.06 0.00 - 0.10 K/cumm [facility] Lymphocyte abs 2.61 0.80 - 3.30 K/cumm [facility] Monocyte abs 0.72 0.20 - 0.80 K/cumm [facility] Eosinophil abs 0.09 0.00 - 0.50 K/cumm [facility] Basophil abs 0.08 0.00 - 0.10 K/cumm [facility] Neutrophil pct 51.2 % [facility] Comment: Interpretive Data Percent cell count reference ranges are not reported, since discordance with absolute values may lead to misinterpretation of CBC data. Current Interpretive Data was last revised on 2017. Imm gran pct 0.8 % [facility] Comment: Interpretive Data Percent cell count reference ranges are not reported, since discordance with absolute values may lead to misinterpretation of CBC data. Current Interpretive Data was last revised on 2017. Lymphocyte pct 35.8 % [facility] Comment: Interpretive Data Percent cell count reference ranges are not reported, since discordance with absolute values may lead to misinterpretation of CBC data. Current Interpretive Data was last revised on 2017. Monocyte pct 9.9 % [facility] Comment: Interpretive Data Percent cell count reference ranges are not reported, since discordance with absolute values may lead to misinterpretation of CBC data. Current Interpretive Data was last revised on 2017. Eosinophil pct 1.2 % [facility] Comment: Interpretive Data Percent cell count reference ranges are not reported, since discordance with absolute values may lead to misinterpretation of CBC data. Current Interpretive Data was last revised on 2017. Basophil pct 1.1 % [facility] Comment: Interpretive Data Percent cell count reference ranges are not reported, since discordance with absolute values may lead to misinterpretation of CBC data. Current Interpretive Data was last revised on 2017. Blood 11/19/2024 8:20 PM CDT 11/19/2024 9:33 PM CDT us Lee Elena MD LAB BLOOD ORDERABLES Krystyna meyers Result [facility] Department [place] [address] * (ABNORMAL) CBC with auto differential (11/19/2024 8:20 PM CDT) WBC 7.30 3.80 - 9.90 K/cumm Hgb 9.1(L) 11.9 - 15.5 g/dL [facility] Hct 27.7(L) 35.6 - 45.5 % [facility] Plt 627(H) 150 - 400 K/cumm [facility] MPV 9.9 9.1 - 12.3 fL [facility] RBC 2.75(L) 3.90 - 5.20 M/cumm [facility] MCV 100.7(H) 81.3 - 96.4 fL [facility] MCH 33.1 27.1 - 33.3 pg [facility] MCHC 32.9 32.3 - 35.7 g/dL [facility] RDW CV 20.7(H) 11.1 - 14.9 % [facility] RDW SD 75.5(H) 35.7 - 48.1 fL [facility] NRBC abs 0.00 0.00 - 0.01 K/cumm [facility] Blood 11/19/2024 8:20 PM CDT 11/19/2024 9:33 PM CDT us Lee Elena MD LAB BLOOD ORDERABLES Krystyna meyers Result [facility] Department [place] [address] * Protime-INR (11/19/2024 8:20 PM CDT) Pathologist [facility] PT 10.6 9.7 - 13.0 sec INR 0.98 0.90 - 1.20 [facility] Comment: Interpretive data Oral anticoagulant therapeutic ranges: Venous thromboembolism prophylaxis or treatment: 2.0-3.0 CARDIOLOGY Standard range: 2.0-3.0 High-intensity range: 2.5-3.5 Refer to indication-specific guidelines for appropriate target ranges for prosthetic heart valve replacement. Current interpretive data was last revised on 2019. Blood 11/19/2024 8:20 PM CDT 11/19/2024 9:36 PM CDT Lee Elena MD LAB BLOOD ORDERABLES Krystyna l Result Performing Organization Address [facility] de Phone Number [facility] [place] [address] * Phosphorus (11/19/2024 8:20 PM CDT) Pathologist [facility] Phosphorus, pl 4.2 2.3 - 4.5 mg/dL Blood 11/19/2024 8:20 PM CDT 11/19/2024 9:32 PM CDT Lee Elena MD LAB BLOOD ORDERABLES Krystyna l Result Performing Organization Address [facility] de Phone Number [facility] [place] [employer] [place] [address] * Magnesium (11/19/2024 8:20 PM CDT) Pathologist [facility] Magnesium 2.0 1.4 - 2.5 mg/dL Blood 11/19/2024 8:20 PM CDT 11/19/2024 9:32 PM CDT Lee Elena MD LAB BLOOD ORDERABLES Krystyna l Result Performing Organization Address [facility] [place] [address] * (ABNORMAL) Hepatic function panel (11/19/2024 8:20 PM CDT) Bilirubin, total 0.4 0.1 - 1.2 mg/dL Bilirubin, direct 0.3 0.1 - 0.3 mg/dL [facility] Protein, pl 5.7(L) 6.5 - 8.5 g/dL [facility] Albumin 2.2(L) 3.5 - 5.0 g/dL [facility] Alk phos 189(H) 40 - 130 Units/L [facility] ALT 12 7 - 45 Units/L [facility] AST 49(H) 10 - 45 Units/L [facility] Blood 11/19/2024 8:20 PM CDT 11/19/2024 9:32 PM CDT Lee Elena MD LAB BLOOD ORDERABLES Krystyna l Result [facility] Department [place] [address] * (ABNORMAL) Basic metabolic panel (11/19/2024 8:20 PM CDT) Sodium 138 135 - 145 mmol/L Potassium, pl 4.2 3.3 - 4.9 mmol/L [facility] Chloride 103 97 - 110 mmol/L [facility] CO2 28 22 - 32 mmol/L [facility] Anion gap 7 2 - 15 mmol/L [facility] BUN 15 6 - 25 mg/dL [facility] Creatinine 0.40(L) 0.60 - 1.10 mg/dL [facility] Glucose 93 70 - 199 mg/dL [facility] Comment: Interpretive Data Fasting glucose >/= [...] 2022. Calcium 8.4(L) 8.5 - 10.3 mg/dL [facility] Blood 11/19/2024 8:20 PM CDT 11/19/2024 9:32 PM CDT us Lee Elena MD LAB BLOOD ORDERABLES Krystyna l Result [facility] Department [place] [address] * POCT glucose (11/19/2024 7:53 AM CDT) Pathologist [facility] Glucose, POC 112 70 - 199 mg/dL Blood 11/19/2024 7:53 AM CDT 11/19/2024 7:53 AM CDT Aelx Wynn MD LAB POCT ORDERABLES - DEVICE Fi nal Result Performing Organization Address [facility] Co de Phone Number [facility] Department [place] [address] * (ABNORMAL) Differential, auto (11/18/2024 9:53 PM CDT) [facility] Neutrophil abs 5.36 1.50 - 6.50 K/cumm Imm gran abs 0.06 0.00 - 0.10 K/cumm [facility] Lymphocyte abs 2.35 0.80 - 3.30 K/cumm [facility] Monocyte abs 0.81(H) 0.20 - 0.80 K/cumm [facility] Eosinophil abs 0.17 0.00 - 0.50 K/cumm [facility] Basophil abs 0.07 0.00 - 0.10 K/cumm [facility] Neutrophil pct 60.8 % [facility] Comment: Interpretive Data Percent cell count reference ranges are not reported, since discordance with absolute values may lead to misinterpretation of CBC data. Current Interpretive Data was last revised on 2017. Imm gran pct 0.7 % [facility] Comment: Interpretive Data Percent cell count reference ranges are not reported, since discordance with absolute values may lead to misinterpretation of CBC data. Current Interpretive Data was last revised on 2017. Lymphocyte pct 26.6 % [facility] Comment: Interpretive Data Percent cell count reference ranges are not reported, since discordance with absolute values may lead to misinterpretation of CBC data. Current Interpretive Data was last revised on 2017. Monocyte pct 9.2 % [facility] Comment: Interpretive Data Percent cell count reference ranges are not reported, since discordance with absolute values may lead to misinterpretation of CBC data. Current Interpretive Data was last revised on 2017. Eosinophil pct 1.9 % [facility] Comment: Interpretive Data Percent cell count reference ranges are not reported, since discordance with absolute values may lead to misinterpretation of CBC data. Current Interpretive Data was last revised on 2017. Basophil pct 0.8 % [facility] Comment: Interpretive Data Percent cell count reference ranges are not reported, since discordance with absolute values may lead to misinterpretation of CBC data. Current Interpretive Data was last revised on 2017. Blood 11/18/2024 9:53 PM CDT 11/18/2024 11:34 PM CDT Lee Elena MD LAB BLOOD ORDERABLES Krystyna meyers Result [facility] Department [place] [address] * (ABNORMAL) CBC with auto differential (11/18/2024 9:53 PM CDT) WBC 8.82 3.80 - 9.90 K/cumm Hgb 9.2(L) 11.9 - 15.5 g/dL [facility] Hct 27.9(L) 35.6 - 45.5 % [facility] Plt 649(H) 150 - 400 K/cumm [facility] MPV 9.9 9.1 - 12.3 fL [facility] RBC 2.79(L) 3.90 - 5.20 M/cumm [facility] MCV 100.0(H) 81.3 - 96.4 fL [facility] MCH 33.0 27.1 - 33.3 pg [facility] MCHC 33.0 32.3 - 35.7 g/dL [facility] RDW CV 20.7(H) 11.1 - 14.9 % [facility] RDW SD 74.5(H) 35.7 - 48.1 fL [facility] NRBC abs 0.00 0.00 - 0.01 K/cumm [facility] Blood 11/18/2024 9:53 PM CDT 11/18/2024 11:34 PM CDT Lee Elena MD LAB BLOOD ORDERABLES Krystyna meyers Result [facility] Department [place] [address] * Blood culture Blood (11/18/2024 9:53 PM CDT) Report Final Report: No growth Blood 11/18/2024 9:53 PM CDT 11/19/2024 1:12 AM CDT Narrative [facility] - 11/23/2024 7:00 AM CDT Collection->Peripheral [...] performance characteristics have been verified by the [facility]biology Laboratory. For questions about this culture, contact the Microbiology Laboratory at [phone]. Interpretive data was last revised on 24. Lee Elena MD LAB MICROBIOLOGY - GENERA L ORDERABLES Final Result Performing Organization Address [facility] Co de Phone Number [facility] [place] [address] * Protime-INR (11/18/2024 9:53 PM CDT) PT 10.8 9.7 - 13.0 sec INR 1.00 0.90 - 1.20 [facility] Comment: Interpretive data Oral anticoagulant therapeutic ranges: Venous thromboembolism prophylaxis or treatment: 2.0-3.0 CARDIOLOGY Standard range: 2.0-3.0 High-intensity range: 2.5-3.5 Refer to indication-specific guidelines for appropriate target ranges for prosthetic heart valve replacement. Current interpretive data was last revised on 2019. Blood 11/18/2024 9:53 PM CDT 11/18/2024 11:31 PM CDT Lee Elena MD LAB BLOOD ORDERABLES Krystyna l Result Performing Organization Address [facility] Co de Phone Number [facility] Department [place] [address] * eGFR (11/18/2024 3:57 PM CDT) eGFR [...] ORDERABLES Krystyna l Result Performing Organization Address City/[facility] Co de Phone Number [facility] [place] [employer] [place] [address] * (ABNORMAL) Phosphorus (11/18/2024 3:57 PM CDT) Phosphorus, pl 4.8(H) 2.3 - 4.5 mg/dL Blood 11/18/2024 3:57 PM CDT 11/18/2024 4:11 PM CDT Lee Elena MD LAB BLOOD ORDERABLES Krystyna l Result Performing Organization Address [facility] [place] [address] * Magnesium (11/18/2024 3:57 PM CDT) Magnesium 1.6 1.4 - 2.5 mg/dL Blood 11/18/2024 3:57 PM CDT 11/18/2024 4:11 PM CDT Lee Elena MD LAB BLOOD ORDERABLES Krystyna l Result Performing Organization Address [facility] Co de Phone Number [facility] [place] [place] [address] * (ABNORMAL) Hepatic function panel (11/18/2024 3:57 PM CDT) Bilirubin, total 0.5 0.1 - 1.2 mg/dL Bilirubin, direct 0.4(H) 0.1 - 0.3 mg/dL [facility] Protein, pl 5.8(L) 6.5 - 8.5 g/dL [facility] Albumin 2.5(L) 3.5 - 5.0 g/dL [facility] Alk phos 207(H) 40 - 130 Units/L [facility] ALT 10 7 - 45 Units/L [facility] AST 43 10 - 45 Units/L [facility] Blood 11/18/2024 3:57 PM CDT 11/18/2024 4:11 PM CDT us Lee Elena MD LAB BLOOD ORDERABLES Krystyna meyers Result [facility] Department [place] [address] * (ABNORMAL) Basic metabolic panel (11/18/2024 3:57 PM CDT) [facility] Sodium 140 135 - 145 mmol/L Potassium, pl 4.2 3.3 - 4.9 mmol/L [facility] Chloride 102 97 - 110 mmol/L [facility] CO2 29 22 - 32 mmol/L [facility] Anion gap 9 2 - 15 mmol/L [facility] BUN 13 6 - 25 mg/dL [facility] Creatinine 0.44(L) 0.60 - 1.10 mg/dL [facility] Glucose 92 70 - 199 mg/dL [facility] Comment: Interpretive Data Fasting glucose >/= [...] ORDERABLES Krystyna l Result Performing Organization Address [facility]/ZIP Co de Phone Number [facility] Department [place] [address] * ECG 12 lead (11/18/2024 1:40 PM CDT) Ventricular Rate EKG/Min 86 BPM [facility] Atrial Rate 86 BPM [facility] NE-Interval (MSEC) 104 ms [facility] QRS-Interval (MSEC) 74 ms [facility] QT-Interval (MSEC) 422 ms [facility] QTc 504 ms [facility] P [place] 28 degrees [facility] R [place] 78 degrees [facility] T [place] 159 degrees [facility] Diagnosis Sinus rhythm with short NE T wave abnormality, consider lateral ischemia Prolonged QT Abnormal ECG When compared with ECG of 16-NOV-2024 07:09, Nonspecific T wave abnormality no longer evident in Anterior leads Inverted T waves have replaced nonspecific T wave abnormality in Lateral leads Confirmed by SHALINI RODRIGUEZ M.D ([id number]) on 11/20/2024 4:17:45 PM [facility] 11/18/2024 1:40 PM CDT 11/20/2024 4:17 PM CDT Lee Elena MD ECG ORDERABLES Final Res ult Performing Organization Address City/[facility]/ZIP Co de Phone Number [facility] * POCT glucose (11/18/2024 12:02 AM CDT) Glucose, POC 104 70 - 199 mg/dL Blood 11/18/2024 12:0 2 AM CDT 11/18/2024 12:02 AM CDT Lee Elena MD LAB POCT ORDERABLES - DEV ICE Final Result Performing Organization Address City/[facility]/ZIP Co de Phone Number SH[facility] Department [place] [address] * eGFR (11/17/2024 10:42 PM CDT) Pathologist [facility] eGFR >90 >=60 mL/min/1. 73 m2 Comment: [...] ORDERABLES Krystyna l Result Performing Organization Address City/[facility]/ZIP Co de Phone Number [facility] Department [place] [address] * Differential, auto (11/17/2024 10:42 PM CDT) Pathologist [facility] Neutrophil abs 4.62 1.50 - 6.50 K/cumm Imm gran abs 0.08 0.00 - 0.10 K/cumm [facility] Lymphocyte abs 2.27 0.80 - 3.30 K/cumm [facility] Monocyte abs 0.73 0.20 - 0.80 K/cumm [facility] Eosinophil abs 0.13 0.00 - 0.50 K/cumm [facility] Basophil abs 0.08 0.00 - 0.10 K/cumm [facility] Neutrophil pct 58.5 % [facility] Comment: Interpretive Data Percent cell count reference ranges are not reported, since discordance with absolute values may lead to misinterpretation of CBC data. Current Interpretive Data was last revised on 2017. Imm gran pct 1.0 % [facility] Comment: Interpretive Data Percent cell count reference ranges are not reported, since discordance with absolute values may lead to misinterpretation of CBC data. Current Interpretive Data was last revised on 2017. Lymphocyte pct 28.7 % [facility] Comment: Interpretive Data Percent cell count reference ranges are not reported, since discordance with absolute values may lead to misinterpretation of CBC data. Current Interpretive Data was last revised on 2017. Monocyte pct 9.2 % [facility] Comment: Interpretive Data Percent cell count reference ranges are not reported, since discordance with absolute values may lead to misinterpretation of CBC data. Current Interpretive Data was last revised on 2017. Eosinophil pct 1.6 % [facility] Comment: Interpretive Data Percent cell count reference ranges are not reported, since discordance with absolute values may lead to misinterpretation of CBC data. Current Interpretive Data was last revised on 2017. Basophil pct 1.0 % [facility] Comment: Interpretive Data Percent cell count reference ranges are not reported, since discordance with absolute values may lead to misinterpretation of CBC data. Current Interpretive Data was last revised on 2017. Blood 11/17/2024 10:4 2 PM CDT 11/17/2024 11:26 PM CDT us Lee Elena MD LAB BLOOD ORDERABLES Krystyna meyers Result [facility] [place] [address] * (ABNORMAL) CBC with auto differential (11/17/2024 10:42 PM CDT) WBC 7.91 3.80 - 9.90 K/cumm Hgb 9.2(L) 11.9 - 15.5 g/dL [facility] Hct 27.9(L) 35.6 - 45.5 % [facility] Plt 666(H) 150 - 400 K/cumm [facility] MPV 10.0 9.1 - 12.3 fL [facility] RBC 2.81(L) 3.90 - 5.20 M/cumm [facility] MCV 99.3(H) 81.3 - 96.4 fL [facility] MCH 32.7 27.1 - 33.3 pg [facility] MCHC 33.0 32.3 - 35.7 g/dL [facility] RDW CV 21.2(H) 11.1 - 14.9 % [facility] RDW SD 75.9(H) 35.7 - 48.1 fL [facility] NRBC abs 0.00 0.00 - 0.01 K/cumm [facility] Blood 11/17/2024 10:4 2 PM CDT 11/17/2024 11:26 PM CDT us Lee Elena MD LAB BLOOD ORDERABLES Krystyna meyers Result [facility] Department [place] [address] * Blood culture Blood (11/17/2024 10:42 PM CDT) Report Final Report: No growth Blood 11/17/2024 10:4 2 PM CDT 11/17/2024 11:21 PM CDT Narrative [facility] - 11/22/2024 7:00 AM CDT Collection->Peripheral [...] performance characteristics have been verified by the [facility]biology Laboratory. For questions about this culture, contact the Microbiology Laboratory at [phone]. Interpretive data was last revised on 24. Lee Elena MD LAB MICROBIOLOGY - GENERA L ORDERABLES Final Result Performing Organization Address [facility] Co de Phone Number [facility] [place] [place] [address] * Protime-INR (11/17/2024 10:42 PM CDT) PT 12.0 9.7 - 13.0 sec INR 1.11 0.90 - 1.20 [facility] Comment: Interpretive data Oral anticoagulant therapeutic [...] ORDERABLES Krystyna l Result Performing Organization Address City/[facility] Co de Phone Number [facility] [place] [place] [address] * Phosphorus (11/17/2024 10:42 PM CDT) [facility] Phosphorus, pl 3.7 2.3 - 4.5 mg/dL Blood 11/17/2024 10:4 2 PM CDT 11/17/2024 11:26 PM CDT Lee Elena MD LAB BLOOD ORDERABLES Krystyna l Result [facility] [place] [address] * Magnesium (11/17/2024 10:42 PM CDT) [facility] Magnesium 1.8 1.4 - 2.5 mg/dL Blood 11/17/2024 10:4 2 PM CDT 11/17/2024 11:26 PM CDT Lee Elena MD LAB BLOOD ORDERABLES Krystyna l Result Performing Organization Address [facility] de Phone Number [facility] [place] [address] * (ABNORMAL) Hepatic function panel (11/17/2024 10:42 PM CDT) [facility] Bilirubin, total 0.5 0.1 - 1.2 mg/dL Bilirubin, direct 0.4(H) 0.1 - 0.3 mg/dL [facility] Protein, pl 5.4(L) 6.5 - 8.5 g/dL [facility] Albumin 2.2(L) 3.5 - 5.0 g/dL [facility] Alk phos 186(H) 40 - 130 Units/L [facility] ALT 11 7 - 45 Units/L [facility] AST 44 10 - 45 Units/L [facility] Blood 11/17/2024 10:4 2 PM CDT 11/17/2024 11:26 PM CDT Lee Elena MD LAB BLOOD ORDERABLES Krystyna l Result [facility] Department [place] [address] * (ABNORMAL) Basic metabolic panel (11/17/2024 10:42 PM CDT) Sodium 139 135 - 145 mmol/L Potassium, pl 4.2 3.3 - 4.9 mmol/L [facility] Chloride 106 97 - 110 mmol/L [facility] CO2 28 22 - 32 mmol/L [facility] Anion gap 5 2 - 15 mmol/L [facility] BUN 10 6 - 25 mg/dL [facility] Creatinine 0.43(L) 0.60 - 1.10 mg/dL [facility] Glucose 99 70 - 199 mg/dL [facility] Comment: Interpretive Data Fasting glucose >/= [...] 2022. Calcium 8.4(L) 8.5 - 10.3 mg/dL [facility] Blood 11/17/2024 10:4 2 PM CDT 11/17/2024 11:26 PM CDT us Lee Elena MD LAB BLOOD ORDERABLES Krystyna l Result [facility] Department [place] [address] * POCT glucose (11/17/2024 7:38 PM CDT) Glucose, POC 101 70 - 199 mg/dL Blood 11/17/2024 7:38 PM CDT 11/17/2024 7:38 PM CDT Lee Elena MD LAB POCT ORDERABLES - DEV ICE Final Result Performing Organization Address [facility] de Phone Number [facility] [place] [address] * POCT glucose (11/17/2024 3:39 PM CDT) Glucose, POC 95 70 - 199 mg/dL Blood 11/17/2024 3:39 PM CDT 11/17/2024 3:39 PM CDT us Lee Elena MD LAB POCT ORDERABLES - DEV ICE Final Result Performing Organization Address [facility] de Phone Number [facility] [place] [address] * POCT glucose (11/17/2024 11:25 AM CDT) Glucose, POC 99 70 - 199 mg/dL Blood 11/17/2024 11:2 5 AM CDT 11/17/2024 11:25 AM CDT Lee Elena MD LAB POCT ORDERABLES - DEV ICE Final Result Performing Organization Address [facility] de Phone Number [facility] [place] [place] [address] * POCT glucose (11/17/2024 7:43 AM CDT) Glucose, POC 108 70 - 199 mg/dL Blood 11/17/2024 7:43 AM CDT 11/17/2024 7:43 AM CDT Lee Elena MD LAB POCT ORDERABLES - DEV ICE Final Result Performing Organization Address [facility]/ZIP Co de Phone Number [facility] Department [place] [address] * POCT glucose (11/17/2024 5:04 AM CDT) Glucose, POC 110 70 - 199 mg/dL Blood 11/17/2024 5:04 AM CDT 11/17/2024 5:04 AM CDT Lee Elena MD LAB POCT ORDERABLES - DEV ICE Final Result Performing Organization Address [facility] Co de Phone Number [facility] [place] [address] * POCT glucose (11/17/2024 12:06 AM CDT) [facility] Glucose, POC 102 70 - 199 mg/dL Blood 11/17/2024 12:0 6 AM CDT 11/17/2024 12:06 AM CDT Lee Elena MD LAB POCT ORDERABLES - DEV ICE Final Result Performing Organization Address [facility] de Phone Number [facility] [place] [address] * eGFR (11/16/2024 9:38 PM CDT) [facility] eGFR >90 >=60 mL/min/1. 73 m2 Comment: [...] MD LAB BLOOD ORDERABLES Krystyna meyers Result [facility] [place] [address] * (ABNORMAL) Differential, auto (11/16/2024 9:38 PM CDT) Neutrophil abs 9.72(H) 1.50 - 6.50 K/cumm Imm gran abs 0.14(H) 0.00 - 0.10 K/cumm [facility] Lymphocyte abs 1.26 0.80 - 3.30 K/cumm [facility] Monocyte abs 0.53 0.20 - 0.80 K/cumm [facility] Eosinophil abs 0.06 0.00 - 0.50 K/cumm [facility] Basophil abs 0.08 0.00 - 0.10 K/cumm [facility] Neutrophil pct 82.4 % [facility] Comment: Interpretive Data Percent cell count reference ranges are not reported, since discordance with absolute values may lead to misinterpretation of CBC data. Current Interpretive Data was last revised on 2017. Imm gran pct 1.2 % [facility] Comment: Interpretive Data Percent cell count reference ranges are not reported, since discordance with absolute values may lead to misinterpretation of CBC data. Current Interpretive Data was last revised on 2017. Lymphocyte pct 10.7 % [facility] Comment: Interpretive Data Percent cell count reference ranges are not reported, since discordance with absolute values may lead to misinterpretation of CBC data. Current Interpretive Data was last revised on 2017. Monocyte pct 4.5 % [facility] Comment: Interpretive Data Percent cell count reference ranges are not reported, since discordance with absolute values may lead to misinterpretation of CBC data. Current Interpretive Data was last revised on 2017. Eosinophil pct 0.5 % [facility] Comment: Interpretive Data Percent cell count reference ranges are not reported, since discordance with absolute values may lead to misinterpretation of CBC data. Current Interpretive Data was last revised on 2017. Basophil pct 0.7 % [facility] Comment: Interpretive Data Percent cell count reference ranges are not reported, since discordance with absolute values may lead to misinterpretation of CBC data. Current Interpretive Data was last revised on 2017. Blood 11/16/2024 9:38 PM CDT 11/16/2024 10:38 PM CDT us Lee Elena MD LAB BLOOD ORDERABLES Krystyna meyers Result [facility] Department [place] [address] * (ABNORMAL) CBC with auto differential (11/16/2024 9:38 PM CDT) WBC 11.79(H) 3.80 - 9.90 K/cumm Hgb 10.1(L) 11.9 - 15.5 g/dL [facility] Hct 30.2(L) 35.6 - 45.5 % [facility] Plt 718(H) 150 - 400 K/cumm [facility] MPV 10.5 9.1 - 12.3 fL [facility] RBC 3.12(L) 3.90 - 5.20 M/cumm [facility] MCV 96.8(H) 81.3 - 96.4 fL [facility] MCH 32.4 27.1 - 33.3 pg [facility] MCHC 33.4 32.3 - 35.7 g/dL [facility] RDW CV 21.5(H) 11.1 - 14.9 % [facility] RDW SD 73.1(H) 35.7 - 48.1 fL [facility] NRBC abs 0.00 0.00 - 0.01 K/cumm [facility] Blood 11/16/2024 9:38 PM CDT 11/16/2024 10:38 PM CDT Lee Elena MD LAB BLOOD ORDERABLES Krystyna l Result Performing Organization Address [facility]/State/ZIP Co de Phone Number [facility] Department [place] [address] * Blood culture Blood (11/16/2024 9:38 PM CDT) Report Final Report: No growth Blood 11/16/2024 9:38 PM CDT 11/16/2024 10:38 PM CDT Narrative [facility] - 11/21/2024 7:00 AM CDT From [...] performance characteristics have been verified by the [facility]biology [facility]. For questions about this culture, contact the Microbiology Laboratory at [phone]. Interpretive data was last revised on 24. Lee Elena MD LAB MICROBIOLOGY - GENERA L ORDERABLES Final Result Performing Organization Address [facility] Co de Phone Number [facility] [place] [employer] [place] [address] * Protime-INR (11/16/2024 9:38 PM CDT) Pathologist [facility] PT 12.6 9.7 - 13.0 sec INR 1.16 0.90 - 1.20 [facility] Comment: Interpretive data Oral anticoagulant therapeutic ranges: Venous thromboembolism prophylaxis or treatment: 2.0-3.0 CARDIOLOGY Standard range: 2.0-3.0 High-intensity range: 2.5-3.5 Refer to indication-specific guidelines for appropriate target ranges for prosthetic heart valve replacement. Current interpretive data was last revised on 2019. Blood 11/16/2024 9:38 PM CDT 11/16/2024 10:38 PM CDT Lee Elena MD LAB BLOOD ORDERABLES Krystyna l Result Performing Organization Address [facility] Co de Phone Number [facility] [place] [place] [address] * Phosphorus (11/16/2024 9:38 PM CDT) [facility] Phosphorus, pl 4.1 2.3 - 4.5 mg/dL Blood 11/16/2024 9:38 PM CDT 11/16/2024 10:37 PM CDT Lee Elena MD LAB BLOOD ORDERABLES Krystyna l Result Performing Organization Address [facility] [place] [address] * Magnesium (11/16/2024 9:38 PM CDT) [facility] Magnesium 1.5 1.4 - 2.5 mg/dL Blood 11/16/2024 9:38 PM CDT 11/16/2024 10:37 PM CDT Lee Elena MD LAB BLOOD ORDERABLES Krystyna l Result Performing Organization Address City/[facility]/ZIP Co de Phone Number [facility] Department [place] [address] * (ABNORMAL) Hepatic function panel (11/16/2024 9:38 PM CDT) Pathologist [facility] Bilirubin, total 0.6 0.1 - 1.2 mg/dL Bilirubin, direct 0.4(H) 0.1 - 0.3 mg/dL [facility] Protein, pl 5.7(L) 6.5 - 8.5 g/dL [facility] Albumin 2.0(L) 3.5 - 5.0 g/dL [facility] Alk phos 201(H) 40 - 130 Units/L [facility] ALT 21 7 - 45 Units/L [facility] AST 68(H) 10 - 45 Units/L [facility] Blood 11/16/2024 9:38 PM CDT 11/16/2024 10:37 PM CDT Lee Elena MD LAB BLOOD ORDERABLES Krystyna l Result Performing Organization Address [facility] Co de Phone Number [facility] Department [place] [address] * (ABNORMAL) Basic metabolic panel (11/16/2024 9:38 PM CDT) Pathologist [facility] Sodium 141 135 - 145 mmol/L Potassium, pl 4.2 3.3 - 4.9 mmol/L [facility] Chloride 103 97 - 110 mmol/L [facility] CO2 29 22 - 32 mmol/L [facility] Anion gap 9 2 - 15 mmol/L [facility] BUN 9 6 - 25 mg/dL [facility] Creatinine 0.48(L) 0.60 - 1.10 mg/dL [facility] Glucose 90 70 - 199 mg/dL [facility] Comment: Interpretive Data Fasting glucose >/= [...] 2022. Calcium 8.8 8.5 - 10.3 mg/dL [facility] Blood 11/16/2024 9:38 PM CDT 11/16/2024 10:37 PM CDT us Lee Elena MD LAB BLOOD ORDERABLES Krystyna l Result [facility] Department [place] [address] * Blood culture Blood (11/16/2024 9:28 PM CDT) Report Final Report: No growth Blood 11/16/2024 9:28 PM CDT 11/16/2024 10:38 PM CDT Narrative [facility] - 11/21/2024 7:00 AM CDT Collection->Peripheral [...] performance characteristics have been verified by the [facility]biology [facility]. For questions about this culture, contact the Microbiology Laboratory at [phone]. Interpretive data was last revised on 24. Lee Elena MD LAB MICROBIOLOGY - GENERA L ORDERABLES Final Result Performing Organization Address City/[facility] Co de Phone Number [facility] [place] [address] * POCT glucose (11/16/2024 8:10 PM CDT) Glucose, POC 124 70 - 199 mg/dL Blood 11/16/2024 8:10 PM CDT 11/16/2024 8:10 PM CDT Lee Elena MD LAB POCT ORDERABLES - DEV ICE Final Result Performing Organization Address [facility] de Phone Number [facility] [place] [place] [address] * POCT glucose (11/16/2024 6:32 PM CDT) Glucose, POC 104 70 - 199 mg/dL Blood 11/16/2024 6:32 PM CDT 11/16/2024 6:32 PM CDT Lee Elena MD LAB POCT ORDERABLES - DEV ICE Final Result Performing Organization Address [facility] [place] [address] * Radiology Event (11/16/2024 5:53 PM CDT) [...] department on the 5th floor of the [facility] tower. It was reported that [...] the 5[facility] It was reported that when [...] mapping at the mid: normal less than 8400-8666 ms. T2 mapping at the mid: normal [...] mapping at the mid: normal less than 1556-3433 ms. T2 mapping at the mid: normal [...] Hemoglobin and hematocrit (11/16/2024 11:59 AM CDT) [facility] Hgb 10.2(L) 11.9 - 15.5 g/dL Comment:Hemoglobin delta due to apparent blood transfusion. Hct 30.3(L) 35.6 - 45.5 % [facility] Blood 11/16/2024 11:5 9 AM CDT 11/16/2024 12:47 PM CDT Oracio Cody MD LAB BLOOD ORDERABLES Final Result [facility] [place] [address] * eGFR (11/16/2024 11:58 AM CDT) [facility] eGFR >90 >=60 mL/min/1. 73 m2 Comment: [...] l Result [facility] [place] [employer] [place] [address] * Calcium, ionized (11/16/2024 11:58 AM CDT) Calcium, Ionized 4.68 4.50 - 5.10 mg/dL Blood 11/16/2024 11:5 8 AM CDT 11/16/2024 12:39 PM CDT us Lee Elena MD LAB BLOOD ORDERABLES Krystyna l Result [facility] [place] [employer] [place] [address] * Phosphorus (11/16/2024 11:58 AM CDT) Phosphorus, pl 4.3 2.3 - 4.5 mg/dL Blood 11/16/2024 11:5 8 AM CDT 11/16/2024 12:47 PM CDT Lee Elena MD LAB BLOOD ORDERABLES Krystyna l Result Performing Organization Address City/[facility] Co de Phone Number [facility] Department [place] [address] * Magnesium (11/16/2024 11:58 AM CDT) [facility] Magnesium 1.6 1.4 - 2.5 mg/dL Blood 11/16/2024 11:5 8 AM CDT 11/16/2024 12:47 PM CDT Lee Elena MD LAB BLOOD ORDERABLES Krystyna l Result Performing Organization Address [facility] de Phone Number [facility] [place] [address] * (ABNORMAL) Basic metabolic panel (11/16/2024 11:58 AM CDT) [facility] Sodium 140 135 - 145 mmol/L Potassium, pl 4.2 3.3 - 4.9 mmol/L [facility] Chloride 104 97 - 110 mmol/L [facility] CO2 30 22 - 32 mmol/L [facility] Anion gap 6 2 - 15 mmol/L [facility] BUN 9 6 - 25 mg/dL [facility] Creatinine 0.44(L) 0.60 - 1.10 mg/dL [facility] Glucose 101 70 - 199 mg/dL [facility] Comment: Interpretive Data Fasting glucose >/= [...] 2022. Calcium 8.6 8.5 - 10.3 mg/dL [facility] Blood 11/16/2024 11:5 8 AM CDT 11/16/2024 12:47 PM CDT Lee Elena MD LAB BLOOD ORDERABLES Krystyna l Result Performing Organization Address City/[facility] Co de Phone Number [facility] [place] [place] [address] * (ABNORMAL) POCT glucose (11/16/2024 11:43 AM CDT) Glucose, POC 250(H) 70 - 199 mg/dL Comment:Glu2: RN/MD Notified Glucose comment 1 Glu2: RN/MD Notified [facility] Blood 11/16/2024 11:4 3 AM CDT 11/16/2024 11:43 AM CDT Lee Elena MD LAB POCT ORDERABLES - DEV ICE Final Result Performing Organization Address City/[facility] [place] [address] * POCT glucose (11/16/2024 7:55 AM CDT) Glucose, POC 98 70 - 199 mg/dL Blood 11/16/2024 7:55 AM CDT 11/16/2024 7:55 AM CDT Lee Elena MD LAB POCT ORDERABLES - DEV ICE Final Result Performing Organization Address City/[facility]/ZIP [place] [address] * ECG 12 lead (11/16/2024 7:09 AM CDT) Ventricular Rate EKG/Min 84 BPM [facility] Atrial Rate 84 BPM [facility] NE-Interval (MSEC) 126 ms [facility] QRS-Interval (MSEC) 66 ms [facility] QT-Interval (MSEC) 410 ms [facility] QTc 484 ms [facility] P [place] 19 degrees [facility] R [place] 41 degrees [facility] T [place] 92 degrees [facility] Diagnosis Normal sinus rhythm Nonspecific T wave abnormality Prolonged QT Abnormal ECG Confirmed by Gustabo Mcdaniels MD ([id number]) on 11/16/2024 8:39:02 AM [facility] 11/16/2024 7:09 AM CDT 11/16/2024 8:39 AM CDT Lee Elena MD ECG ORDERABLES Final Res ult Performing Organization Address [facility]/ZIP Co de Phone Number [facility] * Transfuse RBC (11/16/2024 6:22 AM CDT) Blood Lee Elena MD BLOOD TRANSFUSION ORDERAB LES Final Result Performing Organization Address [facility]/ZIP Co de Phone Number [facility] Department [place] [address] * POCT glucose (11/16/2024 4:21 AM CDT) Glucose, POC 119 70 - 199 mg/dL Blood 11/16/2024 4:21 AM CDT 11/16/2024 4:21 AM CDT Lee Elena MD LAB POCT ORDERABLES - DEV ICE Final Result Performing Organization Address [facility] Co de Phone Number [facility] [place] [employer] [place] [address] * Type and screen (11/16/2024 1:45 AM CDT) Zach, indirect Negative ABO Rh A Positive [facility] Blood 11/16/2024 1:45 AM CDT 11/16/2024 2:04 AM CDT Narrative [facility] - 11/16/2024 2:58 AM CDT Has the patient had Daratumumab or Isatuximab in the past 6 months?->Unknown Lee Elena MD LAB BLOOD BANK TEST ORDER ALINE Final Result Performing Organization Address [facility] de Phone Number [facility] Department [place] [address] * POCT glucose (11/16/2024 12:24 AM CDT) Glucose, POC 107 70 - 199 mg/dL Blood 11/16/2024 12:2 4 AM CDT 11/16/2024 12:24 AM CDT Lee Elena MD LAB POCT ORDERABLES - DEV ICE Final Result Performing Organization Address [facility] de Phone Number [facility] Department [place] [address] * Prepare RBC: 1 Units (11/15/2024 10:35 PM CDT) Product code [id number] Unit Number [id number] [facility] Product Blood Type APOS [facility] Dispense Status PRESUMED TRANSFUSED [facility] Blood 11/15/2024 10:3 5 PM CDT 11/15/2024 10:34 PM CDT Narrative [facility] - 11/16/2024 4:01 PM CDT Are special requirements needed? (All products are leukoreduced and CMV- safe)- >No Date required:-[id number] LRRBC # of [id number] Reasons:-Hgb <7 g/dL} Lee Elena MD BLOOD BANK PRODUCT ORDERA BLES Final Result Performing Organization Address [facility] de Phone Number [facility] Department [place] [address] * eGFR (11/15/2024 8:16 PM CDT) [facility] eGFR >90 >=60 mL/min/1. 73 m2 Comment: [...] us Lee Elena MD LAB BLOOD ORDERABLES rKystyna meyers Result [facility] Department [place] [address] * (ABNORMAL) Differential, auto (11/15/2024 8:16 PM CDT) Pathologist [facility] Neutrophil abs 2.95 1.50 - 6.50 K/cumm Imm gran abs 0.11(H) 0.00 - 0.10 K/cumm [facility] Lymphocyte abs 2.04 0.80 - 3.30 K/cumm [facility] Monocyte abs 0.49 0.20 - 0.80 K/cumm [facility] Eosinophil abs 0.10 0.00 - 0.50 K/cumm [facility] Basophil abs 0.02 0.00 - 0.10 K/cumm [facility] Neutrophil pct 51.6 % [facility] Comment: Interpretive Data Percent cell count reference ranges are not reported, since discordance with absolute values may lead to misinterpretation of CBC data. Current Interpretive Data was last revised on 2017. Imm gran pct 1.9 % [facility] Comment: Interpretive Data Percent cell count reference ranges are not reported, since discordance with absolute values may lead to misinterpretation of CBC data. Current Interpretive Data was last revised on 2017. Lymphocyte pct 35.7 % [facility] Comment: Interpretive Data Percent cell count reference ranges are not reported, since discordance with absolute values may lead to misinterpretation of CBC data. Current Interpretive Data was last revised on 2017. Monocyte pct 8.6 % [facility] Comment: Interpretive Data Percent cell count reference ranges are not reported, since discordance with absolute values may lead to misinterpretation of CBC data. Current Interpretive Data was last revised on 2017. Eosinophil pct 1.8 % [facility] Comment: Interpretive Data Percent cell count reference ranges are not reported, since discordance with absolute values may lead to misinterpretation of CBC data. Current Interpretive Data was last revised on 2017. Basophil pct 0.4 % [facility] Comment: Interpretive Data Percent cell count reference ranges are not reported, since discordance with absolute values may lead to misinterpretation of CBC data. Current Interpretive Data was last revised on 2017. Blood 11/15/2024 8:16 PM CDT 11/15/2024 9:37 PM CDT us Lee Elena MD LAB BLOOD ORDERABLES Krystyna mira Result [facility] [place] [address] * (ABNORMAL) CBC with auto differential (11/15/2024 8:16 PM CDT) WBC 5.71 3.80 - 9.90 K/cumm Hgb 6.9(L) 11.9 - 15.5 g/dL [facility] Hct 20.7(L) 35.6 - 45.5 % [facility] Plt 592(H) 150 - 400 K/cumm [facility] MPV 11.0 9.1 - 12.3 fL [facility] RBC 2.05(L) 3.90 - 5.20 M/cumm [facility] MCV 101.0(H) 81.3 - 96.4 fL [facility] MCH 33.7(H) 27.1 - 33.3 pg [facility] MCHC 33.3 32.3 - 35.7 g/dL [facility] RDW CV 21.6(H) 11.1 - 14.9 % [facility] RDW SD 77.4(H) 35.7 - 48.1 fL [facility] NRBC abs 0.00 0.00 - 0.01 K/cumm [facility] Blood 11/15/2024 8:16 PM CDT 11/15/2024 9:37 PM CDT us Lee Elena MD LAB BLOOD ORDERABLES Krystyna meyers Result [facility] [place] [address] * Blood culture Blood (11/15/2024 8:16 PM CDT) Report Final Report: No growth Blood 11/15/2024 8:16 PM CDT 11/15/2024 9:44 PM CDT Narrative [facility] - 11/20/2024 7:00 AM CDT Collection->Peripheral [...] performance characteristics have been verified by the [facility] Microbiology Laboratory. For questions about this culture, contact the Microbiology Laboratory at [phone]. Interpretive data was last revised on 24. Lee Elena MD LAB MICROBIOLOGY - GENERA L ORDERABLES Final Result Performing Organization Address [facility] Co de Phone Number [facility] [place] [employer] [place] [address] * Protime-INR (11/15/2024 8:16 PM CDT) Pathologist [facility] PT 10.7 9.7 - 13.0 sec INR 0.99 0.90 - 1.20 [facility] Comment: Interpretive data Oral anticoagulant therapeutic ranges: Venous thromboembolism prophylaxis or treatment: 2.0-3.0 CARDIOLOGY Standard range: 2.0-3.0 High-intensity range: 2.5-3.5 Refer to indication-specific guidelines for appropriate target ranges for prosthetic heart valve replacement. Current interpretive data was last revised on 2019. Blood 11/15/2024 8:16 PM CDT 11/15/2024 9:39 PM CDT Lee Elena MD LAB BLOOD ORDERABLES Krystyna l Result Performing Organization Address [facility] Co de Phone Number [facility] [place] [employer] [place] [address] * Phosphorus (11/15/2024 8:16 PM CDT) Pathologist [facility] Phosphorus, pl 4.0 2.3 - 4.5 mg/dL Blood 11/15/2024 8:16 PM CDT 11/15/2024 9:36 PM CDT Lee Elena MD LAB BLOOD ORDERABLES Krystyna l Result Performing Organization Address City/[facility]/ZIP Co de Phone Number [facility] [place] [address] * Magnesium (11/15/2024 8:16 PM CDT) Pathologist [facility] Magnesium 1.6 1.4 - 2.5 mg/dL Blood 11/15/2024 8:16 PM CDT 11/15/2024 9:36 PM CDT Lee Elena MD LAB BLOOD ORDERABLES Krystyna l Result Performing Organization Address [facility] de Phone Number [facility] Department [place] [address] * (ABNORMAL) Hepatic function panel (11/15/2024 8:16 PM CDT) Pathologist [facility] Bilirubin, total 0.5 0.1 - 1.2 mg/dL Bilirubin, direct 0.4(H) 0.1 - 0.3 mg/dL [facility] Protein, pl 4.8(L) 6.5 - 8.5 g/dL [facility] Albumin 2.1(L) 3.5 - 5.0 g/dL [facility] Alk phos 171(H) 40 - 130 Units/L [facility] ALT 11 7 - 45 Units/L [facility] AST 39 10 - 45 Units/L [facility] Blood 11/15/2024 8:16 PM CDT 11/15/2024 9:36 PM CDT Lee Elena MD LAB BLOOD ORDERABLES Krystyna l Result Performing Organization Address [facility] Co de Phone Number [facility] Department [place] [address] * (ABNORMAL) Basic metabolic panel (11/15/2024 8:16 PM CDT) [facility] Sodium 141 135 - 145 mmol/L Potassium, pl 4.0 3.3 - 4.9 mmol/L [facility] Chloride 105 97 - 110 mmol/L [facility] CO2 29 22 - 32 mmol/L [facility] Anion gap 7 2 - 15 mmol/L [facility] BUN 7 6 - 25 mg/dL [facility] Creatinine 0.46(L) 0.60 - 1.10 mg/dL [facility] Glucose 95 70 - 199 mg/dL [facility] Comment: Interpretive Data Fasting glucose >/= [...] 2022. Calcium 7.7(L) 8.5 - 10.3 mg/dL [facility] Blood 11/15/2024 8:16 PM CDT 11/15/2024 9:36 PM CDT us Lee Elena MD LAB BLOOD ORDERABLES Krystyna l Result [facility] Department [place] [address] * POCT glucose (11/15/2024 7:40 PM CDT) Pathologist [facility] Glucose, POC 117 70 - 199 mg/dL Blood 11/15/2024 7:40 PM CDT 11/15/2024 7:40 PM CDT Lee Elena MD LAB POCT ORDERABLES - DEV ICE Final Result Performing Organization Address [facility] Co de Phone Number [facility] [place] [employer] [place] [address] * POCT glucose (11/15/2024 5:11 PM CDT) Glucose, POC 100 70 - 199 mg/dL Blood 11/15/2024 5:11 PM CDT 11/15/2024 5:11 PM CDT Lee Elena MD LAB POCT ORDERABLES - DEV ICE Final Result Performing Organization Address [facility] de Phone Number [facility] [place] [place] [address] * POCT glucose (11/15/2024 11:19 AM CDT) Glucose, POC 127 70 - 199 mg/dL Blood 11/15/2024 11:1 9 AM CDT 11/15/2024 11:19 AM CDT Lee Elena MD LAB POCT ORDERABLES - DEV ICE Final Result Performing Organization Address [facility] Co de Phone Number [facility] [place] [employer] [place] [address] * POCT glucose (11/15/2024 8:44 AM CDT) Glucose, POC 106 70 - 199 mg/dL Blood 11/15/2024 8:44 AM CDT 11/15/2024 8:44 AM CDT Lee Elena MD LAB POCT ORDERABLES - DEV ICE Final Result Performing Organization Address [facility] Co de Phone Number [facility] [place] [address] * POCT glucose (11/15/2024 4:01 AM CDT) Glucose, POC 102 70 - 199 mg/dL Blood 11/15/2024 4:01 AM CDT 11/15/2024 4:01 AM CDT Lee Elena MD LAB POCT ORDERABLES - DEV ICE Final Result Performing Organization Address City/[facility] [place] [address] * POCT glucose (11/15/2024 12:15 AM CDT) Glucose, POC 110 70 - 199 mg/dL Blood 11/15/2024 12:1 5 AM CDT 11/15/2024 12:15 AM CDT Lee Elena MD LAB POCT ORDERABLES - DEV ICE Final Result Performing Organization Address [facility] Co [place] [address] * ECG 12 lead (11/14/2024 10:27 PM CDT) Ventricular Rate EKG/Min 103 BPM [facility] Atrial Rate 103 BPM [facility] NE-Interval (MSEC) 124 ms [facility] QRS-Interval (MSEC) 70 ms [facility] QT-Interval (MSEC) 380 ms [facility] QTc 497 ms [facility] P [place] 23 degrees [facility] R [place] 21 degrees [facility] T [place] 113 degrees [facility] Diagnosis Sinus tachycardia Nonspecific T wave abnormality Abnormal ECG Confirmed by Gustabo Mcdaniels MD ([id number]) on 11/15/2024 4:29:22 PM [facility] 11/14/2024 10:2 7 PM CDT 11/15/2024 4:29 PM CDT Lee Elena MD ECG ORDERABLES Final Res ult [facility] * N. gonorrhoeae/C. trachomatis Amplification Urine (11/14/2024 10:01 PM CDT) C. trachomatis Not Detected Not Detected [facility] N. gonorrhoeae Not Detected Not Detected [facility] Comment: Interpretive Data This assay detects Chlamydia trachomatis and Neisseria gonorrhoeae by nucleic acid amplification testing (NAAT). This assay has been cleared by the [place] Food and Drug administration. The performance characteristics of this test have been verified by the [facility] Molecular Infectious Disease laboratory. The performance characteristics of this test have not been evaluated in individuals less than 14 years of age. Current Interpretive Data last revised 2023. Urine (None) 11/14/2024 10:0 1 PM CDT 11/15/2024 3:36 AM CDT Lee Elena MD LAB MICROBIOLOGY - GENERA L ORDERABLES Final Result Performing Organization Address City/[facility] Co de Phone Number [facility] Department [place] [address] [facility] * eGFR (11/14/2024 9:16 PM CDT) eGFR [...] MD LAB BLOOD ORDERABLES Krystyna meyers Result [facility] [place] [address] * (ABNORMAL) Differential, auto (11/14/2024 9:16 PM CDT) Neutrophil abs 4.79 1.50 - 6.50 K/cumm Imm gran abs 0.18(H) 0.00 - 0.10 K/cumm [facility] Lymphocyte abs 2.09 0.80 - 3.30 K/cumm [facility] Monocyte abs 0.68 0.20 - 0.80 K/cumm [facility] Eosinophil abs 0.10 0.00 - 0.50 K/cumm [facility] Basophil abs 0.05 0.00 - 0.10 K/cumm [facility] Neutrophil pct 60.7 % [facility] Comment: Interpretive Data Percent cell count reference ranges are not reported, since discordance with absolute values may lead to misinterpretation of CBC data. Current Interpretive Data was last revised on 2017. Imm gran pct 2.3 % [facility] Comment: Interpretive Data Percent cell count reference ranges are not reported, since discordance with absolute values may lead to misinterpretation of CBC data. Current Interpretive Data was last revised on 2017. Lymphocyte pct 26.5 % [facility] Comment: Interpretive Data Percent cell count reference ranges are not reported, since discordance with absolute values may lead to misinterpretation of CBC data. Current Interpretive Data was last revised on 2017. Monocyte pct 8.6 % [facility] Comment: Interpretive Data Percent cell count reference ranges are not reported, since discordance with absolute values may lead to misinterpretation of CBC data. Current Interpretive Data was last revised on 2017. Eosinophil pct 1.3 % [facility] Comment: Interpretive Data Percent cell count reference ranges are not reported, since discordance with absolute values may lead to misinterpretation of CBC data. Current Interpretive Data was last revised on 2017. Basophil pct 0.6 % [facility] Comment: Interpretive Data Percent cell count reference ranges are not reported, since discordance with absolute values may lead to misinterpretation of CBC data. Current Interpretive Data was last revised on 2017. Blood 11/14/2024 9:16 PM CDT 11/14/2024 10:29 PM CDT Lee Elena MD LAB BLOOD ORDERABLES Krystyna meyers Result [facility] Department [place] [address] * (ABNORMAL) CBC with auto differential (11/14/2024 9:16 PM CDT) WBC 7.89 3.80 - 9.90 K/cumm Hgb 7.4(L) 11.9 - 15.5 g/dL [facility] Hct 22.1(L) 35.6 - 45.5 % [facility] Plt 501(H) 150 - 400 K/cumm [facility] MPV 11.5 9.1 - 12.3 fL [facility] RBC 2.25(L) 3.90 - 5.20 M/cumm [facility] MCV 98.2(H) 81.3 - 96.4 fL [facility] MCH 32.9 27.1 - 33.3 pg [facility] MCHC 33.5 32.3 - 35.7 g/dL [facility] RDW CV 21.2(H) 11.1 - 14.9 % [facility] RDW SD 74.3(H) 35.7 - 48.1 fL [facility] NRBC abs 0.00 0.00 - 0.01 K/cumm [facility] Blood 11/14/2024 9:16 PM CDT 11/14/2024 10:29 PM CDT Lee Elena MD LAB BLOOD ORDERABLES Krystyna l Result Performing Organization Address [facility]/ZIP Co de Phone Number [facility] Department [place] [address] * Blood culture Blood (11/14/2024 9:16 PM [...] performance characteristics have been verified by the [facility] Microbiology Laboratory. For questions about this culture, contact the Microbiology Laboratory at [phone]. Interpretive data was last revised on 24. us Lee Elena MD LAB MICROBIOLOGY - GENERA L ORDERABLES Final Result Performing Organization Address [facility]/ZIP Co de Phone Number [facility] Department [place] [address] * (ABNORMAL) Blood culture Blood (11/14/2024 9:16 PM CDT) Direct Specimen Exam Stain: Gram Positive Cocci in clusters Time to culture positivity (anaerobic media): 58.1 hours Notification of: Gram Positive Cocci in clusters called to and read back by: Ash Valencia M.D. [id number] on 11/17/2024 10:04:19 by: Nani Bueno MLS Report Final Report: Staphylococcus aureus For susceptibility results, refer to accession number [id number] on the blood culture from 11/14/2024 (.) [facility] Organism STAP[facility]US [facility] Blood 11/14/2024 9:16 PM CDT 11/14/2024 10:47 PM CDT Narrative [facility] - 11/20/2024 8:57 AM CDT Collection->Peripheral 1. [...] performance characteristics have been verified by the [facility] Microbiology Laboratory. For questions about this culture, contact the Microbiology Laboratory at [phone]. Interpretive data was last revised on 24. Lee Elena MD LAB MICROBIOLOGY - GENERA L ORDERABLES Final Result [facility] [place] [place] [address] * Protime-INR (11/14/2024 9:16 PM CDT) Pathologist [facility] PT 12.1 9.7 - 13.0 sec INR 1.12 0.90 - 1.20 [facility] Comment: Interpretive data Oral anticoagulant therapeutic ranges: Venous thromboembolism prophylaxis or treatment: 2.0-3.0 CARDIOLOGY Standard range: 2.0-3.0 High-intensity range: 2.5-3.5 Refer to indication-specific guidelines for appropriate target ranges for prosthetic heart valve replacement. Current interpretive data was last revised on 2019. Blood 11/14/2024 9:16 PM CDT 11/14/2024 10:35 PM CDT Lee Elena MD LAB BLOOD ORDERABLES Krystyna l Result Performing Organization Address [facility] de Phone Number [facility] [place] [employer] [place] [address] * Uric acid (11/14/2024 9:16 PM CDT) [facility] Uric acid 3.4 2.5 - 7.0 mg/dL Blood 11/14/2024 9:16 PM CDT 11/14/2024 10:34 PM CDT Lee Elena MD LAB BLOOD ORDERABLES Krystyna l Result Performing Organization Address [facility] de Phone Number [facility] [place] [address] * (ABNORMAL) Phosphorus (11/14/2024 9:16 PM CDT) Pathologist [facility] Phosphorus, pl 5.1(H) 2.3 - 4.5 mg/dL Blood 11/14/2024 9:16 PM CDT 11/14/2024 10:29 PM CDT Lee Elena MD LAB BLOOD ORDERABLES Krystyna l Result Performing Organization Address [facility] Co de Phone Number [facility] [place] [address] * Magnesium (11/14/2024 9:16 PM CDT) Magnesium 1.9 1.4 - 2.5 mg/dL Blood 11/14/2024 9:16 PM CDT 11/14/2024 10:29 PM CDT Lee Elena MD LAB BLOOD ORDERABLES Krystyna l Result Performing Organization Address [facility] Co de Phone Number [facility] [place] [address] * Folate (11/14/2024 9:16 PM CDT) Folic acid 16.4 >=5.0 ng/mL Blood 11/14/2024 9:16 PM CDT 11/14/2024 10:29 PM CDT Lee Elena MD LAB BLOOD ORDERABLES Krystyna l Result Performing Organization Address [facility] Co de Phone Number [facility] [place] [address] * (ABNORMAL) Vitamin B12 (11/14/2024 9:16 PM CDT) Vitamin B12 1,820(H) 230 - 1,250 pg/mL Blood 11/14/2024 9:16 PM CDT 11/14/2024 10:29 PM CDT Lee Elena MD LAB BLOOD ORDERABLES Krystyna l Result [facility] [place] [address] * (ABNORMAL) Hepatic function panel (11/14/2024 9:16 PM CDT) Pathologist [facility] Bilirubin, total 0.6 0.1 - 1.2 mg/dL Bilirubin, direct 0.5(H) 0.1 - 0.3 mg/dL [facility] Protein, pl 4.7(L) 6.5 - 8.5 g/dL [facility] Albumin 2.0(L) 3.5 - 5.0 g/dL [facility] Alk phos 166(H) 40 - 130 Units/L [facility] ALT 10 7 - 45 Units/L [facility] AST 41 10 - 45 Units/L [facility] Blood 11/14/2024 9:16 PM CDT 11/14/2024 10:29 PM CDT Lee Elena MD LAB BLOOD ORDERABLES Krystyna l Result Performing Organization Address [facility] Co de Phone Number [facility] Department [place] [address] * (ABNORMAL) Basic metabolic panel (11/14/2024 9:16 PM CDT) [facility] Sodium 139 135 - 145 mmol/L Potassium, pl 3.7 3.3 - 4.9 mmol/L [facility] Chloride 100 97 - 110 mmol/L [facility] CO2 27 22 - 32 mmol/L [facility] Anion gap 12 2 - 15 mmol/L [facility] BUN 5(L) 6 - 25 mg/dL [facility] Creatinine 0.48(L) 0.60 - 1.10 mg/dL [facility] Glucose 84 70 - 199 mg/dL [facility] Comment: Interpretive Data Fasting glucose >/= [...] 2022. Calcium 7.7(L) 8.5 - 10.3 mg/dL [facility] Blood 11/14/2024 9:16 PM CDT 11/14/2024 10:29 PM CDT Lee Elena MD LAB BLOOD ORDERABLES Krystyna l Result Performing Organization Address [facility] Co de Phone Number [facility] [place] [employer] [place] [address] * POCT glucose (11/14/2024 7:37 PM CDT) Glucose, POC 119 70 - 199 mg/dL Blood 11/14/2024 7:37 PM CDT 11/14/2024 7:37 PM CDT Lee Elena MD LAB POCT ORDERABLES - DEV ICE Final Result Performing Organization Address [facility] de Phone Number [facility] [place] [place] [address] * POCT glucose (11/14/2024 4:07 PM CDT) Glucose, POC 89 70 - 199 mg/dL Blood 11/14/2024 4:07 PM CDT 11/14/2024 4:07 PM CDT Lee Elena MD LAB POCT ORDERABLES - DEV ICE Final Result Performing Organization Address [facility] Co de Phone Number [facility] Department [place] [address] * TRANSESOPHAGEAL ECHO (MAXIMINO) W DOPPLER/CF WO CONTRAST (11/14/2024 2:19 PM CDT) LV EF 45 % CONS SCIMAGE Anatomical Region Laterality Modality Echocardiography 11/14/2024 1:49 PM CDT Narrative 11/15/2024 2:05 PM CDT [facility] [place] [address] Transesophageal Echocardiographic Report Patient Name: HAYLEY LEÓN L : 1990 (34y 9m) Gender: F Study Date: 11/14/2024 01:49:02 PM Ht(Inch): Wt(Lb): BSA: Automotive Technician: Location: [id number] Order Provider: JULISSA MCGOWAN BMI: Ref Provider: [...] Procedure Note Aubrey Horvath MD - 11/15/2024 [facility] [place] [address] Transesophageal Echocardiographic Report Patient Name: HAYLEY LEÓN L : 1990 (34y 9m) Gender: F Study Date: 11/14/2024 01:49:02 PM Ht(Inch): Wt(Lb): BSA: Automotive Technician: Location: [place] [address] Order Provider: JULISSA MCGOWAN BMI: Ref Provider: [...] DEV ICE Final Result Performing Organization Address [facility] de Phone Number [facility] [place] [place] [address] * POCT glucose (11/14/2024 10:49 AM CDT) Glucose, POC 88 70 - 199 mg/dL Blood 11/14/2024 10:4 9 AM CDT 11/14/2024 10:49 AM CDT Lee Elena MD LAB POCT ORDERABLES - DEV ICE Final Result Performing Organization Address [facility] Co de Phone Number [facility] [place] [address] * POCT glucose (11/14/2024 7:36 AM CDT) Glucose, POC 94 70 - 199 mg/dL Blood 11/14/2024 7:36 AM CDT 11/14/2024 7:36 AM CDT Lee Elena MD LAB POCT ORDERABLES - DEV ICE Final Result Performing Organization Address [facility] Co de Phone Number [facility] Department [place] [address] * POCT glucose (11/14/2024 4:28 AM CDT) Pathologist [facility] Glucose, POC 85 70 - 199 mg/dL Blood 11/14/2024 4:28 AM CDT 11/14/2024 4:28 AM CDT Lee Elena MD LAB POCT ORDERABLES - DEV ICE Final Result Performing Organization Address [facility] de Phone Number [facility] Department [place] [address] * (ABNORMAL) Blood culture Blood (11/14/2024 12:27 AM CDT) [facility] Direct Specimen Exam Stain: Gram Positive Cocci in clusters Time to culture positivity (anaerobic media): 36.1 hours Report Final Report: Staphylococcus aureus For susceptibility results, refer to accession number [id number] on the blood culture from 11/14/2024 (.) [facility] Organism STAPHYLOCOCCUS AUREUS [facility] Blood 11/14/2024 12:2 7 AM CDT [...] performance characteristics have been verified by the [facility] Microbiology Laboratory. For questions about this culture, contact the Microbiology Laboratory at [phone]. Interpretive data was last revised on 24. Lee Elena MD LAB MICROBIOLOGY - GENERA L ORDERABLES Final Result [facility] Department [place] [address] * (ABNORMAL) Blood culture Blood (11/14/2024 12:16 AM CDT) Direct Specimen Exam Stain: Gram Positive Cocci in clusters Time to culture positivity (anaerobic media): 18.6 hours Time to culture positivity (aerobic media): 23.8 hours Direct Specimen Exam Molecular Analysis: Methicillin-suscep tible Staphylococcus aureus (MSSA) detected by the [facility] BCID-GP panel. This test does not exclude the possibility of a mixed bacterial infection. [facility] Report Final Report: Staphylococcus aureus Methicillin susceptible (MSSA) by penicillin binding protein 2a (PBP2a) testing. (.) [facility] Organism STAPHYLOCOCCUS AUREUS [facility] Blood 11/14/2024 12:1 6 AM CDT 11/14/2024 1:42 AM CDT Narrative [facility] - 11/17/2024 1:38 PM CDT Collection->Peripheral 1. [...] performance characteristics have been verified by the [facility] Microbiology Laboratory. For questions about this culture, contact the Microbiology Laboratory at [phone]. Interpretive data was last revised on 24. [...] MICROBIOLOGY - GENERA L ORDERABLES Final Result [facility] [place] [address] * Hepatitis panel, acute Blood (11/03/2024 2:31 PM CDT) Hep A IgM Nonreactive Nonreactive Hep B core IgM Nonreactive Nonreactive [facility] Hep C Ab Nonreactive Nonreactive [facility] Comment:Antibodies to HCV no t detected. Does NOT exclude the possibility of recent exposure to HCV. Current interpretive data was last revised on 22 HepBsAg Nonreactive Nonreactive [facility] Blood 11/03/2024 2:31 PM CDT 11/03/2024 2:38 PM CDT Mar George MD LAB MICROBIOLOGY - GENERAL ORDERABLES Final Result [facility] Department [place] [address] * THINPREP TIS PAP REFLEX HPV mRNA E6/E7, CHLAMYDIA/N.GONORRHOEAE (09/14/2016 12:56 PM KRAFT DIGESTER OPERATOR) CLINICAL INFORMATION [facility] HISTORICAL RESULTS Comment: LMP: [facility] HISTORICAL RESULTS PREV. PAP: [facility] HISTORICAL RESULTS Comment:2011 PREV. BX: [facility] HISTORICAL RESULTS Comment:UNKNOWN SOURCE: [facility] HISTORICAL RESULTS Comment:Cervix, Endocervix STATEMENT OF ADEQUACY: [facility] HISTORICAL RESULTS Comment:Satisfactory for savana luation. Endocervical/transformation zone component present. INTERPRETATION/RES ULT: [facility] HISTORICAL RESULTS Comment:Negative for intraep ithelial lesion or malignancy. COMMENT: [facility] HISTORICAL RESULTS Comment:This Pap test has be en evaluated with computer assisted technology. BARREL ROLLER OPERATOR: [facility] HISTORICAL RESULTS Comment:YQ, CT(ASCP) CT scre ening location: [place] [address] [place] [address] C. trachomatis RNA NOT DETECTED NOT DETECTED [facility] HISTORICAL RESULTS N. gonorrhoeae RNA NOT DETECTED NOT DETECTED [facility] HISTORICAL RESULTS COMMENT [facility] HISTORICAL RESULTS Comment: This test was performed using the APTIMA COMBO2 Assay ([employer] The analytical performance characteristics of this assay, when used to test SurePath specimens have been determined by [facility]. 09/14/2016 12:5 6 PM KRAFT DIGESTER OPERATOR 09/20/2016 11:25 AM KRAFT DIGESTER OPERATOR Narrative 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
--- OUTSIDE RECORDS SUMMARY | 2025-02-13 13:36 | XMS_ITS | Encounter Summary ---
Author Organization [facility] Facility Care Team Providers Care Car Seat Upholsterer Name Role Phone Christian Merritt MD Primary Care Provider [phone] Mo Mitchell MD Primary Care Provider [phone] Neeta Ott RN Unavailable [phone] Encounter Details Date Type Department Care Team (Latest Contact Info) Description 01/05/2017 Orders Only [facility] CLINCONV Provider, MD Serge [address] [place] [id number] Social History Tobacco Use Types Packs/Day Years Used Date Smoking Tobacco: Never Assessed Comments Unknown Sex and Gender Information Value Date Recorded Sex Assigned at Not on file Legal Sex Female 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
[2025-02-13 13:40] LABS: Troponin I < 0.012 ng/mL (0.000-0.034)
--- NOTE | 2025-02-13 13:40 | ED_ITS ---
HPI - Dizziness General Chief Complaint: Dizziness Stated Complaint: dizziness Time Seen by Provider: 02/13/25 12:25 History of Present Illness HPI Narrative: Pt presents with dizziness and feeling lightheaded. Pt says she has been vomiting non stop with some diarrhea and not able to keep down fluids. Pt has life vest because went into cardiac arrest before due to electrolyte abnormalities from vomiting. Pt has some intermittent crampy abdominal pain and tingling in her fingers and toes due to her neuropathy. Related Data Home Medications ?Medication ?Instructions ?Recorded ?Confirmed ?Last Taken ?Type ferrous sulfate 325 mg (65 mg 325 mg PO BID 03/28/24 02/13/25 02/11/25 History iron) tablet,delayed release folic acid 1 mg tablet 1 mg feeding tube DAILY 03/28/24 02/13/25 02/11/25 History megestrol 20 mg tablet 20 mg feeding tube BID 03/28/24 02/13/25 02/11/25 History multivitamin with folic acid 400 1 tablet PO QAM 03/28/24 02/13/25 02/11/25 History mcg tablet (Thera) thiamine HCl (vitamin B1) 100 mg 100 mg feeding tube DAILY 03/28/24 02/13/25 01/07/25 History tablet vitamin B complex (Vitamins B 1 cap feeding tube QAM 03/28/24 02/13/25 02/12/25 History Complex capsule) lactose-reduced food with fiber See Rx Instructions .Route .COMPLEX 08/07/24 02/13/25 01/07/25 History 0.06 gram-1.5 kcal/mL oral liquid (Jevity 1.5 Chriss) buspirone 15 mg tablet 15 mg feeding tube TID 01/08/25 02/13/25 02/12/25 History cyanocobalamin (vitamin B-12) 1,000 mcg feeding tube MONTHLY 01/08/25 02/13/25 02/12/25 History 1,000 mcg tablet nicotine 14 mg/24 hr daily 1 patch transdermal Q24H 01/08/25 02/13/25 01/07/25 History transdermal patch olanzapine 5 mg tablet 5 mg feeding tube QPM 01/08/25 02/13/25 02/11/25 History oxycodone 5 mg tablet 5 mg feeding tube Q8H PRN pain 01/08/25 02/13/25 02/12/25 History apixaban 5 mg tablet (Eliquis) 5 mg PO BID 02/13/25 02/13/25 02/10/25 History ergocalciferol (vitamin D2) 1,250 1,250 mcg feeding tube WEEKLY 02/13/25 02/13/25 02/06/25 History mcg (50,000 unit) capsule famotidine 20 mg tablet 20 mg PO HS 02/13/25 02/13/25 02/11/25 History magnesium oxide 400 mg (241.3 mg 420 mg feeding tube DAILY 02/13/25 02/13/25 02/11/25 History magnesium) tablet methocarbamol 750 mg tablet 750 mg feeding tube .q4hr 02/13/25 02/13/25 02/11/25 History nadolol 20 mg tablet 20 mg feeding tube DAILY 02/13/25 02/13/25 02/11/25 History simethicone 80 mg chewable tablet 80 mg feeding tube QID PRN 02/13/25 02/13/25 Unknown History abdominal distention trazodone 50 mg tablet 50 mg feeding tube HS 02/13/25 02/13/25 Unknown History Allergies Allergy/AdvReac Type Severity Reaction Status Date / Time latex Allergy Rash Verified 01/17/25 09:57 melatonin AdvReac Mild chest Verified 01/17/25 09:57 heaviness Review of Systems 2 Review of Systems: All systems reviewed & are unremarkable except as noted in HPI and below PMFSH Past Medical History Medical History Cardiac arrest with ventricular fibrillation October 2024 Adrenal insufficiency Depression with anxiety Avoidant/restrictive food intake disorder Cannabis abuse Elevated LFTs Mitral valve prolapse Surgical History Surgical History History of percutaneous endoscopic gastrostomy Family History Family History Mother Heart attack Mitral valve prolapse Grandparent Cancer Grandparent Mitral valve prolapse Social History Social History Social History: Surrogate medical decision maker: Jorge Luis Centeno, significant other. Code status: Full code. Smoking packs per day: 0.25 Smoking cigarettes per day: 5.0 Years smoked: 20 Smoking pack-years: 5.00 Smoking status: Current every day smoker Tobacco type: cigarettes Alcohol intake: current Drinks per week: 3 Alcohol use details: States she drinks 1 pint a week Substance use: former Substance use type: does not use and former substance user Other substance usage details: weekly Last use: 10/31/23 Do You Feel Safe in your Home?: Yes Lack of Transportation: No Lack of Food: Never True Current Housing: I Have Housing Concerned About Future Housing: No Difficulty Paying Gas/Electric Bills: No Difficulty Paying for Meds: No Currently Unemployed: No Education: Associate Degree Difficulty w/ Childcare or Family Care: No Living arrangements: with family Additional living arrangements comments: with 7 year old son and fianc? Occupation/Education: unemployed Spiritual care concerns: No Agree to blood products: Yes Exam 2 Const: General: healthy appearing and no acute distress Nutritional Appearance: well nourished Orientation/consciousness: patient oriented x3 Limitations: no limitations Eyes: Pupils: Equal, round and reactive pupils present EOM: EOMs intact bilaterally Resp: Effort & Inspection: normal respiratory effort Auscultation: clear to auscultation bilaterally Cardio: Rate: tachycardic Rhythm: regular rhythm GI: GI Palp: Yes Soft to palpation Auscultation: normal bowel sounds Skin: General skin exam: normal color Rashes: no rashes Wounds: no wounds Neuro: General: patient oriented x3, moves all extremities and no focal motor deficits Speech: normal speech Extrem: General: normal to inspection and no clubbing, cyanosis or edema Psych: Mental Status: mental status grossly normal Affect: normal affect Attitude: cooperative Course Vital Signs Vital signs: Vital Signs Temperature 97.7 F 02/13/25 12:07 Pulse Rate 150 H 02/13/25 12:07 Respiratory Rate 22 H 02/13/25 12:07 Blood Pressure 137/88 02/13/25 12:07 Pulse Oximetry 100 02/13/25 12:07 Oxygen Delivery Room Air 02/13/25 12:07 Temperature 98.8 F 02/13/25 20:00 Pulse Rate 102 H 02/13/25 20:00 Respiratory Rate 16 02/13/25 20:00 Blood Pressure 116/71 02/13/25 20:00 Pulse Oximetry 100 02/13/25 20:00 Oxygen Delivery Room Air 02/13/25 12:07 MDM - Dizziness MDM Narrative Medical decision making narrative: Pt has vomiting and bulemia and hx of cardiac arrest due to electrolyte abnormalities. Pt has sodium of 132 k of 3.3 hco3 of 15. will observe for fluids and correction of lytes. discussed with Sofia Conrad and agrees to admit Lab Data 02/13/25 12:26 02/13/25 17:48 Labs: Lab Results 02/13/25 Range/Units 12:26 WBC 4.9 (4.5-10.0) K/mm3 RBC 4.21 (4.2-5.4) M/mm3 Hgb 13.5 (12.0-15.0) g/dL Hct 38.7 (37.0-47.0) % MCV 91.9 (80-100) fl MCH 32.1 (26-34) pg MCHC 34.9 (32-36) g/dl RDW 14.8 H (11.5-14.5) % Plt Count 146 L (150-375) k/mm3 MPV 10.5 H (7.4-10.4) fl Immature Gran % (Auto) 0.2 (0-0.5) % Neut % (Auto) 58.9 (45.5-73.1) % Lymph % (Auto) 32.9 (18.3-44.2) % [place] % (Auto) 6.4 (2.6-8.5) % Eos % (Auto) 0.2 (0-4.4) % Baso % (Auto) 1.4 H (0.2-1.2) % Lymph # (Auto) 1.60 (0.9-3.2) K/mm3 [place] # (Auto) 0.3 (0.1-0.6) K/mm3 Eos # (Auto) 0.0 (0-0.3) K/mm3 Baso # (Auto) 0.1 (0.0-0.1) K/mm3 Abs Immat Gran (auto) 0.01 (0.00-0.031) K/mm3 Absolute Neuts (auto) 2.9 (1.3-6.7) K/mm3 Absolute Nucleated RBC 0.000 (0.0-0.012) K/mm3 Nucleated RBC % 0.0 (0.0-0.2) % PT 12.9 (11.1-14.7) Seconds INR 1.0 APTT 24.6 (22.3-36.8) Seconds Sodium 136 L (137-145) mmol/L Potassium 2.8 L* (3.4-5.0) mmol/L Chloride 98 (98-107) mmol/L Carbon Dioxide 15 L (22-30) mmol/L Anion Gap 23 H (4-12) mmol/L BUN 9 (7-17) mg/dL Creatinine 0.69 L (0.7-1.0) mg/dL Estim Creat Clear Calc 75 ml/min Estimated GFR > 60 (59 - ) Glucose 120 H (65-110) mg/dL Calcium 9.3 (8.4-10.2) mg/dL Total Bilirubin 0.9 (0.2-1.3) mg/dL AST 75 H (14-36) U/L ALT 31 (6-35) U/L Alkaline Phosphatase 156 H (38-126) U/L Troponin I < 0.012 (0.000-0.034) ng/mL Total Protein 8.0 (6.3-8.2) g/dL Albumin 4.5 (3.5-5.1) g/dL Lipase 155 (23-300) U/L TSH (Reflex) 0.730 (0.465-4.68) uIU/mL Ethyl Alcohol 87 (<10) mg/dL Discharge Plan Discharge Clinical Impression: Acute hypokalemia, Acute hyponatremia, Malnutrition Patient Disposition: Still a Patient Condition: Stable
[2025-02-13 14:01] LABS: Thyroid Stimulating Hormone Reflex 0.730 uIU/mL (0.465-4.68)
[2025-02-13] MEDS: SODIUM CHLORIDE 0.9% IV 2,000 ML 999 ML IV CONT (14:15)
[2025-02-13] MEDS: KCL 20 MEQ/SW 100 ML 100 ML 50 MEQ IVPB (14:16)
[2025-02-13] MEDS: ONDANSETRON INJ 4 MG/2 ML VIAL IV PUSH (14:17)
[2025-02-13] MEDS: ASPIRIN 81 MG CHEWABLE TABLET 324 MG PO (14:20)
[2025-02-13] MEDS: POTASSIUM CHLORIDE 20 MEQ ER TABLET 40 MEQ PO (14:20)
--- NOTE | 2025-02-13 14:31 | P.HP_ITS ---
H&P: HPI History of Present Illness Date/Time: 02/13/25 14:31 Chief Complaint: Dizziness Narrative: 35-year-old female history of eating disorder with PEG tube, mitral valve prolapse, hypokalemia leading to cardiac arrest on LifeVest presents the hospital with dizziness. Patient states that a she has been vomiting and having diarrhea over the last couple days. She states that she is unable to tolerate food at this time. She is also complaining of severe neuropathy in her feet and hands. Patient is asking for morphine for running pain. Patient does state that she feels better since she left the ED and has received IV fluids and potassium. She also endorses chills. Sodium 136, potassium 2.8, carbon dioxide 15, anion gap 23, creatinine is 0.69, glucose of 120, AST is 75, alkaline phos of 156, troponin negative, ethanol level 87. Chest x-ray shows no acute process. EKG shows sinus tachycardia [address] deviation and T-wave abnormalities Review of Systems Review of Systems: 12 systems were reviewed and are negativ e except for as per HPI. [facility] Past Medical History Medical History Cardiac arrest with ventricular fibrillation October 2024 Adrenal insufficiency Depression with anxiety Avoidant/restrictive food intake disorder Cannabis abuse Elevated LFTs Mitral valve prolapse Surgical History Surgical History History of percutaneous endoscopic gastrostomy Family History Family History Mother Heart attack Mitral valve prolapse Grandparent Cancer Grandparent Mitral valve prolapse Social History Social History Social History: Surrogate medical decision maker: Jorge Luis Centeno, significant other. Code status: Full code. Smoking packs per day: 0.25 Smoking cigarettes per day: 5.0 Years smoked: 20 Smoking pack-years: 5.00 Smoking status: Current every day smoker Tobacco type: cigarettes Alcohol intake: current Drinks per week: 3 Alcohol use details: States she drinks 1 pint a week Substance use: former Substance use type: does not use and former substance user Other substance usage details: weekly Last use: 10/31/23 Do You Feel Safe in your Home?: Yes Lack of Transportation: No Lack of Food: Never True Current Housing: I Have Housing Concerned About Future Housing: No Difficulty Paying Gas/Electric Bills: No Difficulty Paying for Meds: No Currently Unemployed: No Education: Associate Degree Difficulty w/ Childcare or Family Care: No Living arrangements: with family Additional living arrangements comments: with 7 year old son and fianc? Occupation/Education: unemployed Spiritual care concerns: No Agree to blood products: Yes Meds Home Medications and Allergies Home Medications ?Medication ?Instructions ?Recorded ?Confirmed ?Type ondansetron 8 mg disintegrating 8 mg PO Q8H PRN nausea and 02/08/24 02/13/25 Rx tablet vomiting #90 tabs ferrous sulfate 325 mg (65 mg 325 mg PO BID 03/28/24 02/13/25 History iron) tablet,delayed release folic acid 1 mg tablet 1 mg feeding tube DAILY 03/28/24 02/13/25 History megestrol 20 mg tablet 20 mg feeding tube BID 03/28/24 02/13/25 History multivitamin with folic acid 400 1 tablet PO QAM 03/28/24 02/13/25 History mcg tablet (Thera) thiamine HCl (vitamin B1) 100 mg 100 mg feeding tube DAILY 03/28/24 02/13/25 History tablet vitamin B complex (Vitamins B 1 cap feeding tube QAM 03/28/24 02/13/25 History Complex capsule) lactose-reduced food with fiber See Rx Instructions .Route .COMPLEX 08/07/24 02/13/25 History 0.06 gram-1.5 kcal/mL oral liquid (Jevity 1.5 Chriss) metoclopramide HCl 10 mg tablet 10 mg PO Q6H nausea and vomiting 08/15/24 02/13/25 Rx (Reglan) #120 tabs potassium chloride 10 mEq 10 meq feeding tube DAILY #60 caps 08/15/24 02/13/25 Rx capsule,extended release buspirone 15 mg tablet 15 mg feeding tube TID 01/08/25 02/13/25 History cyanocobalamin (vitamin B-12) 1,000 mcg feeding tube MONTHLY 01/08/25 02/13/25 History 1,000 mcg tablet nicotine 14 mg/24 hr daily 1 patch transdermal Q24H 01/08/25 02/13/25 History transdermal patch olanzapine 5 mg tablet 5 mg feeding tube QPM 01/08/25 02/13/25 History oxycodone 5 mg tablet 5 mg feeding tube Q8H PRN pain 01/08/25 02/13/25 History rivaroxaban 20 mg tablet (Xarelto) 20 mg PO DAILY@1700 #30 tabs 01/12/25 02/13/25 Rx apixaban 5 mg tablet (Eliquis) 5 mg PO BID 02/13/25 02/13/25 History ergocalciferol (vitamin D2) 1,250 1,250 mcg feeding tube WEEKLY 02/13/25 02/13/25 History mcg (50,000 unit) capsule famotidine 20 mg tablet 20 mg PO HS 02/13/25 02/13/25 History magnesium oxide 400 mg (241.3 mg 420 mg feeding tube DAILY 02/13/25 02/13/25 History magnesium) tablet methocarbamol 750 mg tablet 750 mg feeding tube .q4hr 02/13/25 02/13/25 History nadolol 20 mg tablet 20 mg feeding tube DAILY 02/13/25 02/13/25 History simethicone 80 mg chewable tablet 80 mg feeding tube QID PRN 02/13/25 02/13/25 History abdominal distention trazodone 50 mg tablet 50 mg feeding tube HS 02/13/25 02/13/25 History Allergies Allergy/AdvReac Type Severity Reaction Status Date / Time latex Allergy Rash Verified 01/17/25 09:57 melatonin AdvReac Mild chest Verified 01/17/25 09:57 heaviness Vital Signs Vital Signs - 24 hr 02/13/25 12:07 02/13/25 13:02 02/13/25 13:02 Temperature 97.7 F Pulse Rate 150 H 109 H 104 H Respiratory Rate 22 H 24 H Blood Pressure 137/88 126/84 Pulse Oximetry 100 99 Oxygen Delivery Room Air Exam Narrative: General: well appearing, appears stated age. HEENT: normocephalic, atraumatic. Mucous membranes moist. EOMI, PERRLA, bilateral sclera anicteric, no conjunctival injection. Neck supple without JVD, lymphadenopathy, or bruit. Respiratory: clear to ascultation bilaterally. No rales/rhonic/wheezes. Cardiovascular: Regular rate and rhythm, normal S1-S2 upon ascultation. No murmurs, rubs, or clicks. PMI is nondisplaced, capillary refill less than 3 second. Abdomen: Soft, round, no pulsatile masses, nondistended and nontender. No rebound, no guarding. No CVA tenderness, no hepatosplenomegaly. Bowel sounds present to all four quadrants. No high pitch or tinkling sounds, resonant to percussion. Peg tube in place Extremities: No cyanosis, clubbing, or edema present. Pulses are palpable 2/2. Active ROM to all four extremities. Neuro: Alert and orientated x 4. PERRLA. Cranial nerves 2-12 intact without focal deficit. Skin: Warm, dry, and intact, without rash, erythema, or lesion. Psych: pleasant, cooperative, normal speech, normal affect, no hallucinations, no dysarthia H&P: Results Labs Labs: Short CBC 02/13/25 Range/Units 12:26 WBC 4.9 (4.5-10.0) K/mm3 Hgb 13.5 (12.0-15.0) g/dL Hct 38.7 (37.0-47.0) % Plt Count 146 L (150-375) k/mm3 BMP 02/13/25 12:26 Sodium 136 L Potassium 2.8 L* Chloride 98 Carbon Dioxide 15 L BUN 9 Creatinine 0.69 L Glucose 120 H Calcium 9.3 Cardiac Enzymes 02/13/25 Range/Units 12:26 Troponin I < 0.012 (0.000-0.034) ng/mL Liver Function 02/13/25 Range/Units 12:26 Total Bilirubin 0.9 (0.2-1.3) mg/dL AST 75 H (14-36) U/L ALT 31 (6-35) U/L Alkaline Phosphatase 156 H (38-126) U/L Albumin 4.5 (3.5-5.1) g/dL Assessment and Plan Assessment and plan (1) Acute hypokalemia: Code(s): E87.6 - Hypokalemia Status: Acute Assessment and Plan: Repleted in the ED with 20 of K IV and 40 p.o. Repeat BMP tonight 3.3 Patient given another 40 of p.o. potassium (2) Eating disorder, unspecified: Code(s): F50.9 - Eating disorder, unspecified Status: Acute Assessment and Plan: With G-tube, likely cause of hypokalemia Continue Megace Dietary consulted (3) Depression with anxiety: Code(s): F41.8 - Other specified anxiety disorders Status: Acute Assessment and Plan: Continue BusPar (4) Dehydration: Code(s): E86.0 - Dehydration Status: Resolved Assessment and Plan: IVF for hydration (5) ETOH abuse: Code(s): F10.10 - Alcohol abuse, uncomplicated Status: Acute Assessment and Plan: Patient states she drinks a have a pt of rum a day to every other day CIWA protocol Banana bag, Ativan, thiamine, B12, multivitamin Librium added (6) Cardiac arrest with ventricular fibrillation: Code(s): I46.9 - Cardiac arrest, cause unspecified; I49.01 - Ventricular fibrillation Status: Resolved Assessment and Plan: October 2024 Continue Xarelto (7) Chronic pain: Code(s): G89.29 - Other chronic pain Status: Acute Assessment and Plan: Patient educated that morphine is not for chronic pain Will continue home pain medications Quality VTE Prophylaxis VTE prophylaxis: mechanical ordered and pharmacologic ordered Hospitalist MIPS Advance Care Plan I have confirmed that the patient's Advanced Care Plan is present, code status is documented, or surrogate decision maker is listed in patient medical record.: Yes Medication Reconciliation I have utilized all available resources to obtain, update and review the patients current medications (includes all prescriptions, OTC, herbals, cannabis, and nutritional supplements).: Yes
[2025-02-13] MEDS: fentaNYL CITRATE INJ (*CRX) 100 MCG/2 ML VIAL 25 MCG IV PUSH (14:34)
--- NOTE | 2025-02-13 15:22 | ECG_ITS ---
Test Date: 2025-02-13 15:26:57 Measurements Intervals [place] Rate: 101 P: 66 HI: 121 QRS: 59 QRSD: 80 T: -89 QT: 367 QTc: 476 Interpretive Statements SINUS TACHYCARDIA INFERIOR AND ANTERIOR T-WAVE ABNORMALITY, CONSIDER ISCHEMIA ABNORMAL ECG Electronically Signed On 02-13-2025 16:48:08 CDT by Kevin Stanton M.D.
[2025-02-13] MEDS: THIAMINE HCL INJ 100 MG, FOLIC ACID INJ 1 MG, MAGNESIUM SULFATE INJ 1 GM, MULTIVITAMINS... 125 MG IV CONT (16:02)
[2025-02-13] MEDS: LACTATED RINGERS 1,000 ML 125 ML IV CONT ×2 (16:02→20:24)
[2025-02-13 16:11] LABS: Troponin I < 0.012 ng/mL (0.000-0.034)
--- NOTE | 2025-02-13 16:14 | PCCCNOTE ---
Received a referral for Care Coordination for, abuse. Did see hx of alcohol use. Pt did verbalize she has an eating disorder and alcohol abuse. Denies having any treatment for either condition. Offered resources to help with her BH concerns in which she declines at this time. Let the pt know at any time Care Coordination would be happy to give any resources needed in which she verbalized understanding.-mckenzie
--- NOTE | 2025-02-13 17:22 | ADMGEN ---
This patient, Ester León, was admitted to IMU Room 214-01 at 1621. Patient/family oriented to hospital policies and general routines including ID bracelet, bed and alarms, visiting hours, pain management, procedures, bathroom and other care routines, personal items, smoking policy, room service/diet, and visiting hours. Information on how to activate the Rapid Response Team has been discussed. Patient/Family are encouraged to report perceived risks to care and to ask questions if they do not understand what they are told or what they should do.
[2025-02-13] MEDS: HYDROcodone/acetaminophen (*CRX) 5-325 MG TABLET 1 TAB PO ×2 (17:32→21:35)
[2025-02-13] MEDS: LORazepam (*CRX) 1 MG TABLET 2 MG PO ×2 (17:33→20:18)
[2025-02-13 18:21] LABS: Anion Gap 10 mmol/L (4-12); Blood Urea Nitrogen 8 mg/dL (7-17); Calcium 7.6 mg/dL (8.4-10.2); Carbon Dioxide 15 mmol/L (22-30); Chloride 107 mmol/L (98-107); Estimated CRCL calculation 100 ml/min; Estimated Glomerular Filt Rate > 60; Glucose 111 mg/dL (65-110); Potassium 3.3 mmol/L (3.4-5.0); Sodium 132 mmol/L (137-145)
[2025-02-13 18:27] LABS: Troponin I < 0.012 ng/mL (0.000-0.034)
[2025-02-13] MEDS: NICOTINE (*PBKC) 14 MG PATCH 1 PATCH TRANSDERM (21:33)
[2025-02-13] MEDS: chlordiazePOXIDE (*CRX) 25 MG CAPSULE 50 MG PO (21:34)
[2025-02-13] MEDS: POTASSIUM CHLORIDE 20 MEQ PACKET (FOR LIQUID) 40 MEQ FEED TUBE (21:34)
[2025-02-13] MEDS: FAMOTIDINE 20 MG TABLET PO (21:35)
[2025-02-13] MEDS: MEGESTROL ACETATE (*CHEMO) 20 MG TABLET FEED TUBE (21:37)
[2025-02-14] VITALS (15 sets, daily range): BP systolic 102–133; BP diastolic 63–77; PULSE 71–122; RESP 15–18; TEMP 36.4–37.1; O2SAT 99–100; BMI 21.2
[2025-02-14] MEDS: LORazepam (*CRX) 1 MG TABLET 2 MG PO ×6 (00:08→20:31)
[2025-02-14] MEDS: chlordiazePOXIDE (*CRX) 25 MG CAPSULE 50 MG PO ×4 (00:08→17:38)
[2025-02-14] MEDS: ONDANSETRON INJ 4 MG/2 ML VIAL IV PUSH ×3 (00:15→20:32)
[2025-02-14 04:23] LABS: Hematocrit 33.4 % (37.0-47.0); Hemoglobin 11.0 g/dL (12.0-15.0); Immature Granulocyte Percent A 0.0 % (0-0.5); Immature Platelet Fraction Pct 5.1 % (0.9-11.2); Lymphocytes Absolute Auto 2.60 K/mm3 (0.9-3.2); Mean Corpuscular HGB Conc 32.9 g/dl (32-36); Mean Corpuscular Hemoglobin 32.1 pg (26-34); Mean Corpuscular Volume 97.4 fl (80-100); Nucleated Red Blood Cells Absolute Auto 0.000 K/mm3 (0.0-0.012); Nucleated Red Blood Cells Perc 0.0 % (0.0-0.2); Platelet Count Result 95 k/mm3 (150-375); Red Blood Count 3.43 M/mm3 (4.2-5.4); White Blood Count 4.2 K/mm3 (4.5-10.0)
[2025-02-14 05:04] LABS: Anion Gap 7 mmol/L (4-12); Blood Urea Nitrogen 6 mg/dL (7-17); Calcium 8.4 mg/dL (8.4-10.2); Carbon Dioxide 22 mmol/L (22-30); Chloride 107 mmol/L (98-107); Estimated CRCL calculation 86 ml/min; Estimated Glomerular Filt Rate > 60; Glucose 89 mg/dL (65-110); Potassium 2.7 mmol/L (3.4-5.0); Sodium 136 mmol/L (137-145)
[2025-02-14 05:31] LABS: Magnesium 1.6 mg/dL (1.6-2.3)
[2025-02-14] MEDS: POTASSIUM CHLORIDE 20 MEQ PACKET (FOR LIQUID) 40 MEQ PO ×2 (05:53→08:56)
[2025-02-14] MEDS: LACTATED RINGERS 1,000 ML 125 ML IV CONT (05:53)
[2025-02-14] MEDS: HYDROcodone/acetaminophen (*CRX) 5-325 MG TABLET 1 TAB PO ×3 (05:54→18:10)
[2025-02-14 06:40] LABS: Cannabinoid Screen Urine Negative (Negative)
[2025-02-14] MEDS: THIAMINE HCL 100 MG TABLET PO (08:56)
[2025-02-14] MEDS: FOLIC ACID 1 MG TABLET PO (08:57)
[2025-02-14] MEDS: MEGESTROL ACETATE (*CHEMO) 20 MG TABLET FEED TUBE ×2 (08:57→17:38)
[2025-02-14] MEDS: THERAPEUTIC MULTIVITAMINS/MINERALS TAB (*BKC) 1 TABLET PO (08:57)
[2025-02-14] MEDS: MAGNESIUM SULF 2 GM/WATER 50ML 2 GM/50 ML BAG IVPB (09:28)
[2025-02-14 12:46] LABS: Anion Gap 9 mmol/L (4-12); Blood Urea Nitrogen 5 mg/dL (7-17); Calcium 8.8 mg/dL (8.4-10.2); Carbon Dioxide 21 mmol/L (22-30); Chloride 105 mmol/L (98-107); Estimated CRCL calculation 83 ml/min; Estimated Glomerular Filt Rate > 60; Glucose 77 mg/dL (65-110); Potassium 3.9 mmol/L (3.4-5.0); Sodium 135 mmol/L (137-145)
[2025-02-14 14:15] LABS: Magnesium 2.6 mg/dL (1.6-2.3)
--- NOTE | 2025-02-14 14:45 | P.PNIM_ITS ---
Progress Note: A&P Assessment and Plan (1) Acute hypokalemia: Code(s): E87.6 - Hypokalemia Status: Acute Assessment and Plan: K 3.9 replaced monitor Mg 2.6 from diarrhea (2) Eating disorder, unspecified: Code(s): F50.9 - Eating disorder, unspecified Status: Acute Assessment and Plan: With G-tube, likely cause of hypokalemia Continue Megace Dietary consulted (3) Depression with anxiety: Code(s): F41.8 - Other specified anxiety disorders Status: Acute Assessment and Plan: Continue BusPar (4) Dehydration: Code(s): E86.0 - Dehydration Status: Resolved Assessment and Plan: IVF for hydration (5) ETOH abuse: Code(s): F10.10 - Alcohol abuse, uncomplicated Status: Acute Assessment and Plan: Patient states she drinks a have a pt of rum a day to every other day CIWA protocol Banana bag, Ativan, thiamine, B12, multivitamin Librium added (6) Cardiac arrest with ventricular fibrillation: Code(s): I46.9 - Cardiac arrest, cause unspecified; I49.01 - Ventricular fibrillation Status: Resolved Assessment and Plan: October 2024 Continue Xarelto (7) Chronic pain: Code(s): G89.29 - Other chronic pain Status: Acute Assessment and Plan: Patient educated that morphine is not for chronic pain Will continue home pain medications Plan Diarrhea and vomiting improving Monitor advance diet as tolerated DVT prophylaxis on Xarelto Subjective Date/time seen: 02/14/25 14:45 Interval history: Comfortable at bedside still having diarrhea Review of Systems Review of Systems: 12 systems were reviewed and are negativ e except for as per HPI. Exam Narrative: General: well appearing, appears stated age. HEENT: normocephalic, atraumatic. Mucous membranes moist. EOMI, PERRLA, bilateral sclera anicteric, no conjunctival injection. Neck supple without JVD, lymphadenopathy, or bruit. Respiratory: clear to ascultation bilaterally. No rales/rhonic/wheezes. Cardiovascular: Regular rate and rhythm, normal S1-S2 upon ascultation. No murmurs, rubs, or clicks. PMI is nondisplaced, capillary refill less than 3 second. Abdomen: Soft, round, no pulsatile masses, nondistended and nontender. No rebound, no guarding. No CVA tenderness, no hepatosplenomegaly. Bowel sounds present to all four quadrants. No high pitch or tinkling sounds, resonant to percussion. Peg tube in place Extremities: No cyanosis, clubbing, or edema present. Pulses are palpable 2/2. Active ROM to all four extremities. Neuro: Alert and orientated x 4. PERRLA. Cranial nerves 2-12 intact without focal deficit. Skin: Warm, dry, and intact, without rash, erythema, or lesion. Psych: pleasant, cooperative, normal speech, normal affect, no hallucinations, no dysarthia Objective Data Vital Signs Vital Signs: Vital Signs - 24 hr 02/13/25 16:48 02/13/25 18:00 02/13/25 20:00 Temperature 99.7 F H 98.8 F Pulse Rate 94 103 H 102 H Respiratory Rate 22 H 16 Blood Pressure 120/68 116/71 Pulse Oximetry 100 100 02/13/25 20:00 02/13/25 22:00 02/13/25 23:53 Temperature 98.3 F Pulse Rate 92 87 87 Respiratory Rate 16 Blood Pressure 107/70 Pulse Oximetry 100 02/14/25 00:00 02/14/25 02:00 02/14/25 04:00 Temperature 98.5 F Pulse Rate 86 85 74 Respiratory Rate 15 Blood Pressure 133/63 Pulse Oximetry 99 02/14/25 04:00 02/14/25 06:00 02/14/25 07:51 Temperature 98.4 F Pulse Rate 79 89 87 Respiratory Rate 16 Blood Pressure 106/69 Pulse Oximetry 100 02/14/25 08:00 02/14/25 08:57 02/14/25 10:00 Temperature Pulse Rate 104 H 122 H 116 H Respiratory Rate Blood Pressure Pulse Oximetry 02/14/25 12:00 02/14/25 12:00 02/14/25 13:55 Temperature 98.3 F Pulse Rate 88 86 83 Respiratory Rate 18 Blood Pressure 102/68 Pulse Oximetry 100 Intake/Output Intake/Output: Intake & Output 02/11/25 02/12/25 02/13/25 02/14/25 23:59 23:59 23:59 23:59 Intake Total 3185.8 1590 Balance 3185.8 1590 Meds/Results Medications: Active Medications Generic Name Dose Route Start Last Admin Trade Name Freq PRN Reason Stop Dose Admin Acetaminophen 650 mg 02/13/25 14:46 Acetaminophen 325 Mg Tablet PO Q4H PRN Mild Pain (1-3) or Fever Hydrocodone Bitart/Acetaminophen 1 tab 02/13/25 14:46 02/14/25 13:21 Hydrocodone/Acetaminophen (*Crx) 5-325 Mg Tablet PO 1 tab Q4H PRN Administration Moderate Pain (4-6) Buspirone HCl 15 mg 02/13/25 20:45 02/14/25 12:37 Buspirone Hcl 5 Mg Tablet FEED TUBE 15 mg TID JU Administration Chlordiazepoxide HCl 50 mg 02/13/25 20:50 02/14/25 12:37 Chlordiazepoxide (*Crx) 25 Mg Capsule PO 50 mg Q6HR JU Administration Dextrose 12.5 gm 02/13/25 20:48 Dextrose 50% 25 Gm/50 Ml Syringe IV PUSH PRN PRN Hypoglycemia Protocol Docusate Sodium 100 mg 02/13/25 14:46 Docusate Sodium 100 Mg Capsule PO BID PRN Constipation Famotidine 20 mg 02/13/25 21:00 02/13/25 21:35 Famotidine 20 Mg Tablet PO 20 mg HS JU Administration Folic Acid 1 mg 02/14/25 09:00 02/14/25 08:57 Folic Acid 1 Mg Tablet PO 1 mg DAILY JU Administration Glucagon 1 mg 02/13/25 20:48 Glucagon For Inj 1 Mg Vial IM PRN PRN Hypoglycemia Protocol Glucose 15 gm 02/13/25 20:48 Glucose Oral Gel 15 Gm Of Glucse In 37.5 Gm Tube PO PRN PRN Hypoglycemia Protocol Lactated Ringer's 1,000 mls @ 125 mls/hr 02/13/25 14:15 02/14/25 05:53 Lr - Lactated Ringers Iv IV CONT 125 mls/hr .Q8H JU Administration Dextrose 1,000 mls @ 100 mls/hr 02/13/25 20:48 Dextrose 5% 1,000 Ml IVPB PRN PRN Hypoglycemia Protocol Lorazepam 2 mg 02/13/25 17:00 02/14/25 12:37 Lorazepam (*Crx) 1 Mg Tablet PO 2 mg Q4HR JU Administration Megestrol Acetate 20 mg 02/13/25 20:50 02/14/25 08:57 Megestrol Acetate (*Chemo) 20 Mg Tablet FEED TUBE 20 mg BID JU Administration Methocarbamol 750 mg 02/13/25 21:10 02/14/25 12:37 Methocarbamol 750 Mg Tablet FEED TUBE 750 mg Q4HR JU Administration Multivitamins/Calcium 1 tablet 02/14/25 09:00 02/14/25 08:57 Therapeutic Multivitamins/Minerals Tab (*Bkc) PO 1 tablet DAILY JU Administration Nadolol 20 mg 02/14/25 09:00 02/14/25 08:57 Nadolol 20 Mg Tablet FEED TUBE 20 mg DAILY JU Administration Nicotine 1 patch 02/13/25 20:45 02/13/25 21:33 Nicotine (*Pbkc) 14 Mg Patch TRANSDERM 1 patch Q24H JU Administration Olanzapine 5 mg 02/14/25 21:00 Olanzapine 5 Mg Tablet FEED TUBE HS [facility] Ondansetron HCl 4 mg 02/13/25 22:31 02/14/25 00:15 Ondansetron Inj 4 Mg/2 Ml Vial IV PUSH 4 mg Q6H PRN Administration Nausea And Vomiting Oxycodone HCl 5 mg 02/13/25 20:45 Oxycodone Hcl (*Crx) 5 Mg Tab Ir FEED TUBE Q8H PRN PAIN RATED 7-10 Rivaroxaban 20 mg 02/14/25 17:00 Rivaroxaban 20 Mg Tablet PO DAILY@1700 [facility] Thiamine HCl 100 mg 02/14/25 09:00 02/14/25 08:56 Thiamine Hcl 100 Mg Tablet PO 100 mg DAILY JU Administration Trazodone HCl 50 mg 02/13/25 21:00 02/13/25 21:35 Trazodone Hcl 50 Mg Tablet FEED TUBE 50 mg HS JU Administration Radiology Results: ITS Impressions Chest X-Ray 02/13/25 13:29 IMPRESSION: 1: NO ACUTE CARDIOPULMONARY DISEASE. Labs Labs: Laboratory Results - last 24 hr 02/13/25 02/13/25 02/13/25 15:26 17:48 19:01 WBC RBC Hgb Hct MCV MCH MCHC RDW Plt Count MPV Immature Gran % (Auto) Neut % (Auto) Lymph % (Auto) Crawford % (Auto) Eos % (Auto) Baso % (Auto) Lymph # (Auto) [place] # (Auto) Eos # (Auto) Baso # (Auto) Abs Immat Gran (auto) Absolute Neuts (auto) Absolute Nucleated RBC Nucleated RBC % % Immature Plt Fraction Sodium 132 L Potassium 3.3 L Chloride 107 Carbon Dioxide 15 L Anion Gap 10 BUN 8 Creatinine 0.50 L Estim Creat Clear Calc 100 Estimated GFR > 60 Glucose 111 H POC Capillary Glucose 104 Calcium 7.6 L Phosphorus Magnesium Troponin I < 0.012 < 0.012 Urine Opiates Screen Urine Methadone Screen Ur Barbiturates Screen Ur Phencyclidine Scrn Ur Amphetamine Screen U Benzodiazepines Scrn Urine Cocaine Screen U Cannabinoids Screen 02/13/25 02/14/25 02/14/25 23:59 04:07 06:07 WBC 4.2 L RBC 3.43 L Hgb 11.0 L Hct 33.4 L MCV 97.4 D MCH 32.1 MCHC 32.9 RDW 15.7 H Plt Count 95 L MPV 10.5 H Immature Gran % (Auto) 0.0 Neut % (Auto) 32.0 L Lymph % (Auto) 62.5 H Crawford % (Auto) 3.6 Eos % (Auto) 1.2 Baso % (Auto) 0.7 Lymph # (Auto) 2.60 Crawford # (Auto) 0.2 Eos # (Auto) 0.1 Baso # (Auto) 0.0 Abs Immat Gran (auto) 0.00 Absolute Neuts (auto) 1.3 Absolute Nucleated RBC 0.000 Nucleated RBC % 0.0 % Immature Plt Fraction 5.1 Sodium 136 L Potassium 2.7 L* Chloride 107 Carbon Dioxide 22 Anion Gap 7 BUN 6 L Creatinine 0.59 L Estim Creat Clear Calc 86 Estimated GFR > 60 Glucose 89 POC Capillary Glucose 109 H Calcium 8.4 Phosphorus 2.7 Magnesium 1.6 Troponin I Urine Opiates Screen Positive A Urine Methadone Screen Negative Ur Barbiturates Screen Negative Ur Phencyclidine Scrn Negative Ur Amphetamine Screen Negative U Benzodiazepines Scrn Negative Urine Cocaine Screen Negative U Cannabinoids Screen Negative 02/14/25 02/14/25 02/14/25 11:32 12:02 12:06 WBC RBC Hgb Hct MCV MCH MCHC RDW Plt Count MPV Immature Gran % (Auto) Neut % (Auto) Lymph % (Auto) Crawford % (Auto) Eos % (Auto) Baso % (Auto) Lymph # (Auto) Crawford # (Auto) Eos # (Auto) Baso # (Auto) Abs Immat Gran (auto) Absolute Neuts (auto) Absolute Nucleated RBC Nucleated RBC % % Immature Plt Fraction Sodium 135 L Potassium 3.9 Chloride 105 Carbon Dioxide 21 L Anion Gap 9 BUN 5 L Creatinine 0.61 L Estim Creat Clear Calc 83 Estimated GFR > 60 Glucose 77 POC Capillary Glucose 109 H Calcium 8.8 Phosphorus Magnesium 2.6 H Troponin I Urine Opiates Screen Urine Methadone Screen Ur Barbiturates Screen Ur Phencyclidine Scrn Ur Amphetamine Screen U Benzodiazepines Scrn Urine Cocaine Screen U Cannabinoids Screen Quality VTE Prophylaxis VTE prophylaxis: mechanical ordered and pharmacologic ordered
[2025-02-14] MEDS: RIVAROXABAN 20 MG TABLET PO (17:38)
[2025-02-14] MEDS: oxyCODONE HCL (*CRX) 5 MG TAB IR FEED TUBE (20:31)
[2025-02-14] MEDS: NICOTINE (*PBKC) 14 MG PATCH 1 PATCH TRANSDERM (20:31)
[2025-02-14] MEDS: FAMOTIDINE 20 MG TABLET PO (20:31)
[2025-02-15] VITALS (9 sets, daily range): BP systolic 105–120; BP diastolic 67–84; PULSE 62–87; RESP 16–20; TEMP 36.8–36.9; O2SAT 100
[2025-02-15 04:43] LABS: Hematocrit 37.7 % (37.0-47.0); Hemoglobin 11.8 g/dL (12.0-15.0); Immature Granulocyte Percent A 0.2 % (0-0.5); Immature Platelet Fraction Pct 6.7 % (0.9-11.2); Lymphocytes Absolute Auto 2.45 K/mm3 (0.9-3.2); Mean Corpuscular HGB Conc 31.3 g/dl (32-36); Mean Corpuscular Hemoglobin 32.2 pg (26-34); Mean Corpuscular Volume 102.7 fl (80-100); Nucleated Red Blood Cells Absolute Auto 0.000 K/mm3 (0.0-0.012); Nucleated Red Blood Cells Perc 0.0 % (0.0-0.2); Red Blood Count 3.67 M/mm3 (4.2-5.4); White Blood Count 4.5 K/mm3 (4.5-10.0)
[2025-02-15 05:11] LABS: Platelet Count Result 96 k/mm3 (150-375)
[2025-02-15 05:18] LABS: Alanine Aminotransferase 20 U/L (6-35); Albumin Level 3.4 g/dL (3.5-5.1); Alkaline Phosphatase 110 U/L (38-126); Anion Gap 7 mmol/L (4-12); Aspartate Amino Transferase 42 U/L (14-36); Bilirubin,Total 0.6 mg/dL (0.2-1.3); Blood Urea Nitrogen 6 mg/dL (7-17); Calcium 9.2 mg/dL (8.4-10.2); Carbon Dioxide 19 mmol/L (22-30); Chloride 111 mmol/L (98-107); Estimated CRCL calculation 92 ml/min; Estimated Glomerular Filt Rate > 60; Glucose 92 mg/dL (65-110); Magnesium 2.0 mg/dL (1.6-2.3); Potassium 4.0 mmol/L (3.4-5.0); Sodium 137 mmol/L (137-145); Total Protein 6.1 g/dL (6.3-8.2)
[2025-02-15] MEDS: LORazepam (*CRX) 1 MG TABLET 2 MG PO ×3 (05:57→12:09)
[2025-02-15] MEDS: HYDROcodone/acetaminophen (*CRX) 5-325 MG TABLET 1 TAB PO ×2 (05:57→12:23)
[2025-02-15] MEDS: chlordiazePOXIDE (*CRX) 25 MG CAPSULE 50 MG PO ×2 (05:58→12:09)
[2025-02-15] MEDS: MEGESTROL ACETATE (*CHEMO) 20 MG TABLET FEED TUBE (09:40)
[2025-02-15] MEDS: THERAPEUTIC MULTIVITAMINS/MINERALS TAB (*BKC) 1 TABLET PO (09:40)
[2025-02-15] MEDS: FOLIC ACID 1 MG TABLET PO (09:40)
[2025-02-15] MEDS: THIAMINE HCL 100 MG TABLET PO (09:40)
[2025-02-15] MEDS: ONDANSETRON INJ 4 MG/2 ML VIAL IV PUSH (12:09)
--- NOTE | 2025-02-15 14:14 | PM.DS ---
DS: Admitting Diagnosis Discharge Date 02/15/2025 Admitting Diagnosis Dizziness DS: Discharge Diagnosis Discharge Diagnosis (1) Hyponatremia: Code(s): E87.1 - Hypo-osmolality and hyponatremia Status: Acute (2) Nausea & vomiting: Qualifiers: Vomiting type: unspecified Qualified Code(s): R11.2 - Nausea with vomiting, unspecified Code(s): R11.2 - Nausea with vomiting, unspecified Status: Acute DS: Summary Hospital Course Hospital Course: 35-year-old female history of eating disorder with PEG tube, mitral valve prolapse, hypokalemia leading to cardiac arrest on LifeVest presents the hospital with dizziness. Patient states that a she has been vomiting and having diarrhea over the last couple days. She states that she is unable to tolerate food at this time. She is also complaining of severe neuropathy in her feet and hands. Patient is asking for morphine for running pain. Patient does state that she feels better since she left the ED and has received IV fluids and potassium. She also endorses chills. Sodium 136, potassium 2.8, carbon dioxide 15, anion gap 23, creatinine is 0.69, glucose of 120, AST is 75, alkaline phos of 156, troponin negative, ethanol level 87. Chest x-ray shows no acute process. EKG shows sinus tachycardia [address] deviation and T-wave abnormalities Potassium was replaced and diarrhea and vomiting resolved. Patient noted that she does nto drink alcohol everyday and last alcohol drink was on Tuesday. Continue home potassium replacement Repeat lab has ordered for Tuesday02/18/25 F/u [facility] PCP in 3-5 days Time Spent with Patient Time attestation: Total time spent providing and/or coordinating discharge services: DS: Data Data Completed and Pending Labs on day of discharge: Labs from last 24 hours 02/15/25 02/15/25 02/15/25 11:36 04:16 00:13 WBC 4.5 RBC 3.67 L Hgb 11.8 L Hct 37.7 MCV 102.7 H D MCH 32.2 MCHC 31.3 L RDW 15.9 H Plt Count 96 L MPV 11.0 H Immature Gran % (Auto) 0.2 Neut % (Auto) 38.6 L Lymph % (Auto) 54.1 H Jenkins % (Auto) 4.0 Eos % (Auto) 2.2 Baso % (Auto) 0.9 Lymph # (Auto) 2.45 Jenkins # (Auto) 0.2 Eos # (Auto) 0.1 Baso # (Auto) 0.0 Abs Immat Gran (auto) 0.01 Absolute Neuts (auto) 1.8 Absolute Nucleated RBC 0.000 Nucleated RBC % 0.0 % Immature Plt Fraction 6.7 Sodium 137 Potassium 4.0 Chloride 111 H Carbon Dioxide 19 L Anion Gap 7 BUN 6 L Creatinine 0.55 L Estim Creat Clear Calc 92 Estimated GFR > 60 Glucose 92 POC Capillary Glucose 134 H 108 H Calcium 9.2 Magnesium 2.0 Total Bilirubin 0.6 AST 42 H ALT 20 Alkaline Phosphatase 110 Total Protein 6.1 L Albumin 3.4 L 02/14/25 02/14/25 18:39 12:02 WBC RBC Hgb Hct MCV MCH MCHC RDW Plt Count MPV Immature Gran % (Auto) Neut % (Auto) Lymph % (Auto) Jenkins % (Auto) Eos % (Auto) Baso % (Auto) Lymph # (Auto) Jenkins # (Auto) Eos # (Auto) Baso # (Auto) Abs Immat Gran (auto) Absolute Neuts (auto) Absolute Nucleated RBC Nucleated RBC % % Immature Plt Fraction Sodium Potassium Chloride Carbon Dioxide Anion Gap BUN Creatinine Estim Creat Clear Calc Estimated GFR Glucose POC Capillary Glucose 103 Calcium Magnesium 2.6 H Total Bilirubin AST ALT Alkaline Phosphatase Total Protein Albumin Discharge Plan Discharge Attending physician on discharge: Alesia Washington Discharging Clinician: Alesia Washington Anticipated Discharge Date/Time: 02/15/25 14:07 Patient Disposition: Home with Home Health Service Activity: as tolerated Diet: as tolerated, regular and tube feeding Discharge Instructions: Per Care Coordination Patient is current with [facility] for RN, PT, OT services. Please resume [facility] at discharge for R, PT, OT [phone] RN please fax completed discharge instructions to [facility] [phone] Patient Instructions: Antibiotic Form Patient Language: Yemeni Stand Alone Forms: General Discharge Information Follow-up/Referrals: Mo Mitchell MD [Primary Care Provider] - (F/u with PCP in 3-5 days ) Discharge Medications: Continued ondansetron 8 mg tablet,disintegrating 8 mg PO Q8H PRN (Reason: nausea and vomiting) Qty: 90 0RF olanzapine 5 mg tablet 5 mg feeding tube QPM buspirone 15 mg tablet 15 mg feeding tube TID cyanocobalamin (vitamin B-12) 1,000 mcg tablet 1,000 mcg feeding tube MONTHLY oxycodone 5 mg tablet 5 mg feeding tube Q8H PRN (Reason: pain) nicotine 14 mg/24 hr patch 24 hour 1 patch transdermal Q24H Xarelto 20 mg Tablet 20 mg PO DAILY@1700 Qty: 30 0RF Eliquis 5 mg tablet 5 mg PO BID ergocalciferol (vitamin D2) 1,250 mcg (50,000 unit) capsule 1,250 mcg feeding tube WEEKLY famotidine 20 mg tablet 20 mg PO HS methocarbamol 750 mg tablet 750 mg feeding tube .q4hr nadolol 20 mg tablet 20 mg feeding tube DAILY simethicone 80 mg tablet,chewable 80 mg feeding tube QID PRN (Reason: abdominal distention) Patient Comments: after meals and at bedtime trazodone 50 mg tablet 50 mg feeding tube HS magnesium oxide 400 mg (241.3 mg magnesium) tablet 420 mg feeding tube DAILY thiamine HCl (vitamin B1) 100 mg tablet 100 mg feeding tube DAILY folic acid 1 mg tablet 1 mg feeding tube DAILY ferrous sulfate 325 mg (65 mg iron) tablet,delayed release (DR/EC) 325 mg PO BID Rx Instructions: patient administers via feeding tube megestrol 20 mg tablet 20 mg feeding tube BID vitamin B complex [Vitamins B Complex] Capsule 1 cap feeding tube QAM multivitamin with folic acid [Thera] 400 mcg tablet 1 tablet PO QAM Rx Instructions: pt administers via feeding tube Jevity 1.5 Chriss 0.06 gram-1.5 kcal/mL liquid See Rx Instructions .ROUTE .COMPLEX Rx Instructions: 75ml one to two times a day. potassium chloride 10 mEq capsule, extended release 10 meq feeding tube DAILY Qty: 60 0RF metoclopramide HCl [Reglan] 10 mg tablet 10 mg PO Q6H Qty: 120 0RF Other Ambulatory Orders: Basic Metabolic Panel (Routine) Timeframe: 3 Days Location: Determined by Patient Ordered By: Alesia Washington Magnesium (Routine) Timeframe: 3 Days Location: Determined by Patient Ordered By: Alesia Washington Date of admission: 02/13/25 14:13 Primary Care Provider: Mo Mitchell Admitting Provider: Alesia Washington Attending physician on admission: Alesia Washington Condition: Stable
== END 2025-02-15 14:42 | disposition home health service (06) ==
LOC: ANHED 14:12 → ANHIMU 15:42
PROVIDERS: Internal Medicine; Nurse Practitioner Gerontology; Registered Nurse; Admitting Provider Internal Medicine; Emergency Provider Emergency Medicine; PCP Internal Medicine; Visit Provider Internal Medicine
DX: E87.6 Hypokalemia (principal); R11.2 Nausea with vomiting, unspecified; F50.9 Eating disorder, unspecified; E87.1 Hypo-osmolality and hyponatremia; E86.0 Dehydration; R42 Dizziness and giddiness; R19.7 Diarrhea, unspecified; F10.10 Alcohol abuse, uncomplicated; G89.29 Other chronic pain; I34.1 Nonrheumatic mitral (valve) prolapse; F41.8 Other specified anxiety disorders; E27.40 Unspecified adrenocortical insufficiency; E46 Unspecified protein-calorie malnutrition; Z86.74 Personal history of sudden cardiac arrest; Z68.21 Body mass index [BMI] 21.0-21.9, adult; Z79.01 Long term (current) use of anticoagulants; F17.210 Nicotine dependence, cigarettes, uncomplicated; Z95.811 Presence of heart assist device
CPT/HCPCS: 36415; 71045; 80048; 80053; 80307; 82077; 82948; 83690; 83735; 84100; 84443; 84484; 85025; 85055; 85610; 85730; 93005; 96361; 96365; 96366; 96367; 96374; 96375; 96376; 99285; A9270; G0378; G0379; J2405; J3010; J3411; J3475; J3480; J7030; J7120

== ENCOUNTER 2025-02-25 18:16 | Observation (INO) | payer OTHER, SELFPAY ==
[2025-02-25] VITALS (17 sets, daily range): BP systolic 116–128; BP diastolic 79–91; PULSE 85–126; RESP 17–21; TEMP 36.8; O2SAT 96–100
--- NOTE | ~2025-02-25 | XR_ITS ---
CHEST RADIOGRAPH CLINICAL HISTORY: arlinky, hx cardiac arrest, life vest . COMPARISON: 02/13/2025 TECHNIQUE: Single portable view of the chest. FINDINGS The cardiomediastinal silhouette is unremarkable. The lungs are clear. IMPRESSION: No focal infiltrate or effusion. Reviewed, dictated and finalized at location A.
--- OUTSIDE RECORDS SUMMARY | 2025-02-25 18:18 | XMS_ITS | Clinical Summary ---
Author Organization [facility] Address [address] [place] [address] Care Team Providers Care Hospice Executive Director Name Role Phone Mo Mitchell MD Primary Care Provider [phone] Allergies Active Allergy Reactions Criticality Noted Date Comments Latex Hives Medium 02/27/2017 Medications famotidine (PEPCID) 20 mg tabletIndicatio ns:gastroesopha geal reflux disease Take 1 tablet (20 mg total) by mouth daily 7 tablet 2 Active megestroL (MEGACE) 20 mg tablet Take [...] 3 (three) times a day 90 tablet 5 Active cyanocobalamin (Vitamin B-12) 1,000 mcg tabletIndicatio ns:Prevention of Vitamin B12 Deficiency Take 1 tablet (1,000 mcg total) by mouth daily 30 tablet 5 Active ergocalciferol (VITAMIN D) 50,000 unit capsuleIndicati ons:Vitamin D Deficiency Take 1 capsule (50,000 Units total) by mouth once a week 4 capsule 5 Active magnesium oxide (MAG-OX) 400 mg (241.3 mg elemental magnesium) tabletIndicatio ns:hypomagnesem ia Take 2 tablets (800 mg total) by mouth 2 (two) times a day 120 tablet 5 Active loperamide (IMODIUM) 0.133 mg/mL solutionIndicat ions:diarrhea Take 7.5 mL (1 mg total) by mouth 3 (three) times a day as needed for diarrhea 100 mL 5 Active multivit qyyjmzod-fdqd-U A-calcium (THERA-M) 9 mg iron-400 mcg tabletIndicatio ns:Vitamin Deficiency Administer 1 tablet per feeding tube daily 30 tablet 5 Active nadoloL (CORGARD) 20 mg tabletIndicatio ns:hypertension Take 1 tablet (20 mg total) by mouth daily 30 tablet 5 Active nicotine (NICODERM CQ) 14 mgIndications:S moking Cessation Place 1 patch on the skin daily for 24 hours 30 patch 5 Active OLANZapine (ZyPREXA) 5 mg tabletIndicatio ns:Depression Treatment Adjunct Take 1 tablet (5 mg total) by mouth nightly 30 tablet 5 Active naloxone (NARCAN) 4 mg/actuation spray,non-aeros olIndications:O pioid Toxicity Administer 1 spray into affected nostril(s) as needed for opioid reversal Call 911. Administer a single spray in one nostril. Repeat every 3 minutes as needed if no or minimal response. 2 each 5 Active oxyCODONE (ROXICODONE) 5 mg immediate release tabletIndicatio ns:Pain Take 5 mg by mouth every 8 (eight) hours as needed for pain. Indications: pain Active rivaroxaban (XARELTO) 20 mg tablet Take 1 tablet (20 mg total) by mouth daily with dinner 30 tablet 5 5 Active aspirin 81 mg capsuleIndicati ons:myocardial infarction prevention Take 1 tablet by mouth daily. 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 Indications: low amount of magnesium in the blood Active potassium chloride ER (KLOR-CON) 10 mEq CR tabletIndicatio ns:hypokalemia Take 30 mEq by mouth 2 (two) times a day. Indications: low amount of potassium in the blood Active OLANZapine (ZyPREXA) 5 mg tabletIndicatio ns:Depression Treatment Adjunct Take 5 mg by mouth nightly. Indications: additional treatment for major depressive disorder Active nadoloL (CORGARD) 20 mg tabletIndicatio ns:Prevention of Bleeding Esophageal Varices Take 20 mg by mouth daily. Indications: prevent bleeding varicose vein in the esophagus Active ergocalciferol, vitamin D2, 50 mcg (2,000 unit) tabletIndicatio ns:Vitamin D Deficiency Take 1 capsule by mouth once a week. Indications: low vitamin D levels Active busPIRone (BUSPAR) 15 mg tabletIndicatio ns:Generalized Anxiety Disorder Take 15 mg by mouth 3 (three) times a day. Indications: repeated episodes of anxiety Active cyanocobalamin (Vitamin B-12) 1,000 mcg tabletIndicatio ns:Prevention of Vitamin B12 Deficiency Take 1,000 mcg by mouth daily. Indications: prevention of vitamin B12 deficiency Active methocarbamoL (ROBAXIN) 750 mg tabletIndicatio ns:Muscle Spasm Take 750 mg by mouth 4 (four) times a day. Indications: muscle spasm Active Active Problems Problem Noted Date Diagnosed [...] Encounters Date Type Department Care Team Description 02/22/2025 Home Care Visit [address] [place] [address] Nayely Pedroza, RN SN VIRTUAL NON OASIS DISCHARGE 02/20/2025 Home Care Visit [address] [place] [address] Nayely Pedroza, RN TELEPHONE ENCOUNTER 02/19/2025 Home Care Visit [address] [place] [address] Nayely Pedroza, RN TELEPHONE ENCOUNTER 02/15/2025 Orders Only [facility] Cardiothoracic Surgery [address] [facility] 8th Floor [address] [place] [phone] Bo Fried MD Mass of left cardiac ventricle (Primary Dx) 02/15/2025 Telephone [facility] Home Care Services [address] [place] [address] Unknown, Notinfile 02/14/2025 Telephone [facility] Home Care Services [address] [facility] [address] [place] [address] Salas, Summer 02/13/2025 Orders Only [facility] Cardiothoracic Surgery [address] [facility] 8th Floor [address] Room [address] [phone] Bo Fried MD Mass of left cardiac ventricle (Primary Dx) 02/12/2025 2:30 PM CDT Home Care Visit [address] [address] [address] [place] [address] Nayely Pedroza, BRITTANIE SN HOME VISIT 02/07/2025 10:00 AM CDT Home Care Visit [address] [address] [address] [place] [address] Isabelle Campbell, OT OT INITIAL EVALUATION 02/07/2025 9:00 AM CDT Home Care Visit [address] [address] [place] [address] Pia Swan, RN SN HOME VISIT 02/07/2025 Telephone [facility] Infectious Diseases [address] [facility] [address] [place] [phone] Rosangela Simental, ROSA MARIA 02/06/2025 2:00 PM CDT Home Care Visit [address] [place] [address] Thang Solorzano, PT PT INITIAL EVALUATION 02/05/2025 Home Care Visit [address] [address] [address] [place] [address] Pia Moon, BRITTANIE TELEPHONE ENCOUNTER 02/01/2025 Telephone [facility] Cardiology [address] [facility] 8th [address] [place] [phone] Nani Melchor, SATN Scheduling Appointments 01/31/2025 2:00 PM CDT Home Care Visit [address] [place] [address] Nayely Pedroza, BRITTANIE SN OASIS RECERTIFICATION 01/31/2025 Plan of Care Documentation [address] [place] [address] 01/29/2025 Home Care Visit [address] [place] [address] Nayely Pedroza, BRITTANIE TELEPHONE ENCOUNTER 01/28/2025 Home Care Visit [address] [place] [address] Nayely Pedroza, BRITTANIE TELEPHONE ENCOUNTER 01/24/2025 9:40 AM CDT Office Visit [facility] Infectious Diseases [address] [facility] [address] [place] [phone] Dorothea Stephen, BRAXTON MSSA bacteremia (Primary Dx) 01/22/2025 12:40 PM CDT - 01/22/2025 11:59 PM CDT Hospital Encounter [facility] [address] [place] [address] Discharge Disposition: Discharge to home or self care 01/22/2025 12:00 PM CDT Home Care Visit [address] [place] [address] Nayely Pedroza, BRITTANIE SN HOME VISIT 01/18/2025 10:30 AM CDT Home Care Visit [address] [place] [address] Billy Zarco, BRITTANIE SN OASIS RESUMPTION OF CARE 01/18/2025 Plan of Care Documentation [address] [place] [address] 01/17/2025 Orders Only [facility] Medical Group Cardiology [address] [place] [phone] Oz Noble MD 01/17/2025 Home Care Visit [address] [place] [address] Pia Moon, RN SN OASIS TRANSFER W/OUT DC 01/16/2025 Home Care Visit [address] [place] [address] Pia Moon, RN TELEPHONE ENCOUNTER 01/15/2025 10:00 AM CDT Office Visit [facility] Cardiothoracic Surgery [address] [facility] 8th Floor [address] Room [address] [place] [phone] Bo Fried MD Mass of left cardiac ventricle 01/15/2025 8:15 AM CDT - 01/15/2025 11:59 PM CDT Hospital Encounter [facility] Cardiac Diagnostic Lab [address] [facility] 8th [place] [phone] Bo Fried MD MSSA bacteremia; Thrombocytopenia Discharge Disposition: Discharge to home or self care 01/14/2025 Telephone [facility] Home Care Services [address] [facility] [address] [place] [address] Ondina aSlas [facility] 01/11/2025 Telephone [facility] Home Care Services [address] [facility] [address] [place] [address] Vidhi Martin 01/09/2025 Telephone [facility] Infectious Diseases [address] [facility] [address] [place] [phone] Sidney Gould Jr., RN 01/08/2025 Telephone [facility] Home Care Services [address] [place] [address] [address] [place] [address] Vidhi Martin 01/01/2025 2:10 PM CDT - 01/01/2025 11:59 PM CDT Hospital Encounter [facility] [address] [place] [address] Discharge Disposition: Discharge to home or self care 01/01/2025 2:00 PM CDT Home Care Visit [address] [place] [address] Nayely Pedroza, BRITTANIE SN HOME VISIT 01/01/2025 Telephone [facility] Infectious Diseases [address] [facility] [address] [place] [address] Sidney Gould Jr., RN 12/31/2024 Telephone [facility] Cardiology [address] [place] [address] 8th [place] [address] [place] [phone] Nani Melchor NP 12/31/2024 Orders Only [facility] Infectious Diseases [address] [address] Dorothea Stephen, BRAXTON 12/28/2024 11:00 AM CDT Home Care Visit [address] [place] [address] Nayely Pedroza RN SN HOME VISIT 12/27/2024 2:00 PM CDT Home Care Visit [address] [place] [address] Thang Solorzano, PT PT DISCIPLINE DISCHARGE 12/27/2024 9:13 AM CDT - 12/27/2024 11:59 PM CDT Hospital Encounter [facility] [address] [place] [address] Discharge Disposition: Discharge to home or self care 12/27/2024 8:40 AM CDT Office Visit [facility] Infectious Diseases [address] [phone] Dorothea Stephen, BRAXTON MSSA bacteremia (Primary Dx); Encounter for screening examination for sexually transmitted disease 12/27/2024 Telephone [facility] Infectious Diseases [address] [facility] [address] [place] [phone] Dorothea Stephen, BRAXTON 12/25/2024 Telephone [facility] [address] [facility] [address] [place] [address] Veronika Ocampo MD 12/21/2024 2:00 PM CDT Home Care Visit [address] [place] [address] Thang Solorzano, PT PT HOME VISIT 12/21/2024 11:30 AM CDT Home Care Visit [address] [place] [address] Nayely Pedroza, RN SN HOME VISIT 12/21/2024 Orders Only [facility] Cardiology [address] [facility] 8th [place] [address] [place] [phone] Nani Melchor, BRAXTON 12/19/2024 11:00 AM CDT Home Care Visit [address] [place] [address] Thang Solorzano, PT PT HOME VISIT 12/19/2024 Home Care Visit [address] [place] [address] Thang Solorzano, PT CASE COMMUNICATION 12/13/2024 10:45 AM CDT Home Care Visit [address] [place] [address] Khushboo Jarvis, PT PT HOME VISIT 12/11/2024 2:30 PM CDT Home Care Visit [address] [place] [address] Khushboo Jarvis, PT PT HOME VISIT 12/11/2024 1:00 PM CDT Home Care Visit [address] [place] [address] Nayely Pedroza, RN SN HOME VISIT 12/07/2024 SHOP/CHAP Subsequent Outreach [facility] OP CASE MANAGEMENT [address] [place] [address] Neeta Ott, RN 12/06/2024 12:30 PM CDT Home Care Visit [address] [place] [address] Nayely Pedroza, RN SN HOME VISIT 12/06/2024 11:00 AM CDT Home Care Visit [address] [place] [address] Isabelle Campbell, OT OT INITIAL EVALUATION 12/05/2024 SHOP/CHAP Subsequent Outreach [facility] OP CASE MANAGEMENT [address] [place] [address] Neeta Ott, BRITTANIE 12/04/2024 SHOP/CHAP Subsequent Outreach [facility] OP CASE MANAGEMENT [address] [place] [address] Neeta Ott, RN 12/04/2024 Home Care Visit [address] [place] [address] Nayely Pedroza, RN CARE CONFERENCE 12/03/2024 1:10 PM CDT Telemedicine [address] [place] [address] Yamilex Mathew, BRAXTON Torsades de pointes (HCC) (Primary Dx); MSSA bacteremia 12/03/2024 10:00 AM CDT Home Care Visit [address] [place] [address] Thang Solorzano, PT PT INITIAL EVALUATION 12/03/2024 Home Care Visit [address] [place] [address] Billy Zarco, RN TELEPHONE ENCOUNTER 12/03/2024 Home Care Visit [address] [place] [address] Thang Solorzano, PT TELEPHONE ENCOUNTER 12/01/2024 12:00 PM CDT Home Care Visit [address] [address] [address] [place] [address] Billy Zarco, BRITTANIE SN OASIS START OF CARE 12/01/2024 Plan of Care Documentation [address] [address] [address] [place] [address] 11/30/2024 Orders Only [facility] Cardiothoracic Surgery [address] [facility] 8th Floor [address] [place] [phone] Lee Elena MD Mass of left cardiac ventricle (Primary Dx) 11/29/2024 Telephone [facility] Home Care Services [address] [facility] [address] [place] [address] Dora Sandra 11/29/2024 Orders Only Internal Medicine Pieter Wynn MD 11/29/2024 SHOP/CHAP Initial Outreach [facility] OP CASE MANAGEMENT [address] [place] [address] Neeta Ott, BRITTANIE 11/29/2024 SHOP/CHAP Initial Eligibility Review [facility] OP CASE MANAGEMENT [address] [place] [address] Neeta Ott, BRITTANIE 11/28/2024 Home Care Visit [address] [address] [address] [place] [address] Hortensia Valentino, BRITTANIE SN TRIAGE ENCOUNTER 11/28/2024 Orders Only [facility] Cardiothoracic Surgery [address] [facility] 8th Floor [address] [place] [phone] Bo Fried MD MSSA bacteremia (Primary Dx); Thrombocytopenia 10/31/2024 2:44 AM CDT - 11/28/2024 3:29 PM CDT Hospital Encounter [facility] [address] [place] [phone] Rahul Ramirez MD Vazquez Guillamet, MD Arnulfo Beyer, MD Kassy Rae, MD Leo Killian, Pieter Bhatia MD Torsades de pointes (HCC) (Primary [...] materials from doctor or pharmacy Sometimes 01/18/2025 [facility] Utilities Answer Date Recorded In the past 12 months has th e [place], gas, oil, or water [employer] threatened to shut off services in your [...] week 11/29/2024 How often do you attend formerly [facility] or jainism services? 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 Misc see comment SHONA BACK Comment:Credited, test not i ndicated. Blood 01/22/2025 12:4 0 PM CDT 01/24/2025 2:14 PM CDT us Notinfile Unknown LAB BLOOD ORDERABLES Final Res ult Performing Organization Address City/[facility] Co de Phone Number SHONA [facility] Department [place] [address] [facility] * eGFR (01/22/2025 12:40 PM [...] LAB BLOOD ORDERABLES Final Res ult [facility] [place] [address] * Differential, auto (01/22/2025 12:40 PM CDT) Neutrophil abs 2.80 1.50 - 6.50 K/cumm Imm gran abs 0.00 0.00 - 0.10 K/cumm [facility] Lymphocyte abs 2.66 0.80 - 3.30 K/cumm [facility] Monocyte abs 0.21 0.20 - 0.80 K/cumm [facility] Eosinophil abs 0.14 0.00 - 0.50 K/cumm [facility] Basophil abs 0.05 0.00 - 0.10 K/cumm [facility] Neutrophil pct 47.7 % [facility] Comment: Interpretive Data Percent cell count reference ranges are not reported, since discordance with absolute values may lead to misinterpretation of CBC data. Current Interpretive Data was last revised on 2017. Imm gran pct 0.0 % [facility] Comment: Interpretive Data Percent cell count reference ranges are not reported, since discordance with absolute values may lead to misinterpretation of CBC data. Current Interpretive Data was last revised on 2017. Lymphocyte pct 45.4 % [facility] Comment: Interpretive Data Percent cell count reference ranges are not reported, since discordance with absolute values may lead to misinterpretation of CBC data. Current Interpretive Data was last revised on 2017. Monocyte pct 3.6 % [facility] Comment: Interpretive Data Percent cell count reference ranges are not reported, since discordance with absolute values may lead to misinterpretation of CBC data. Current Interpretive Data was last revised on 2017. Eosinophil pct 2.4 % [facility] Comment: Interpretive Data Percent cell count reference ranges are not reported, since discordance with absolute values may lead to misinterpretation of CBC data. Current Interpretive Data was last revised on 2017. Basophil pct 0.9 % [facility] Comment: Interpretive Data Percent cell count reference ranges are not reported, since discordance with absolute values may lead to misinterpretation of CBC data. Current Interpretive Data was last revised on 2017. Blood 01/22/2025 12:4 0 PM CDT 01/22/2025 3:52 PM CDT us Notinfile Unknown LAB BLOOD ORDERABLES Final Res ult [facility] [place] [address] * (ABNORMAL) Iron profile w/ IBC (01/22/2025 12:40 PM CDT) Pathologist [facility] Iron 60 35 - 145 mcg/dL TIBC 322 250 - 400 mcg/dL [facility] Transferrin saturation 19(L) 20 - 50 % [facility] Blood 01/22/2025 12:4 0 PM CDT 01/22/2025 3:52 PM CDT us Notinfile Unknown LAB BLOOD ORDERABLES Final Res ult [facility] One [facility] [place] [address] * (ABNORMAL) CBC with auto differential (01/22/2025 12:40 PM CDT) [facility] WBC 5.86 3.80 - 9.90 K/cumm Hgb 12.9 11.9 - 15.5 g/dL [facility] Hct 39.0 35.6 - 45.5 % [facility] Plt 170 150 - 400 K/cumm [facility] MPV 11.0 9.1 - 12.3 fL [facility] RBC 4.01 3.90 - 5.20 M/cumm [facility] MCV 97.3(H) 81.3 - 96.4 fL [facility] MCH 32.2 27.1 - 33.3 pg [facility] MCHC 33.1 32.3 - 35.7 g/dL [facility] RDW CV 13.4 11.1 - 14.9 % [facility] RDW SD 47.5 35.7 - 48.1 fL [facility] NRBC abs 0.00 0.00 - 0.01 K/cumm [facility] Blood 01/22/2025 12:4 0 PM CDT 01/22/2025 3:52 PM CDT us Notinfile Unknown LAB BLOOD ORDERABLES Final Res ult [facility] [employer] [place] [address] * Magnesium (01/22/2025 12:40 PM CDT) Pathologist [facility] Magnesium 2.0 1.4 - 2.5 mg/dL Blood 01/22/2025 12:4 0 PM CDT 01/22/2025 3:52 PM CDT us Notinfile Unknown LAB BLOOD ORDERABLES Final Res ult Performing Organization Address [facility] [place] [address] * Folate (01/22/2025 12:40 PM CDT) Pathologist [facility] Folic acid >20.0 >=5.0 ng/mL Blood 01/22/2025 12:4 0 PM CDT 01/22/2025 3:52 PM CDT us Notinfile Unknown LAB BLOOD ORDERABLES Final Res ult Performing Organization Address [facility] Co de Phone Number [facility] Department of [employer] [place] [address] * Vitamin B12 (01/22/2025 12:40 PM CDT) Pathologist [facility] Vitamin B12 815 230 - 1,250 pg/mL Blood 01/22/2025 12:4 0 PM CDT 01/22/2025 3:52 PM CDT us Notinfile Unknown LAB BLOOD ORDERABLES Final Res ult Performing Organization Address [facility] Co de Phone Number [facility] [place] [address] * (ABNORMAL) Comprehensive metabolic panel (01/22/2025 12:40 PM CDT) Pathologist [facility] Sodium 135 135 - 145 mmol/L Potassium, pl 3.4 3.3 - 4.9 mmol/L [facility] Chloride 98 97 - 110 mmol/L [facility] CO2 23 22 - 32 mmol/L [facility] Anion gap 14 2 - 15 mmol/L [facility] BUN 9 6 - 25 mg/dL [facility] Creatinine 0.63 0.60 - 1.10 mg/dL [facility] Glucose 85 70 - 199 mg/dL [facility] Comment: Interpretive Data Fasting glucose >/= 126 [...] 2022. Calcium 10.1 8.5 - 10.3 mg/dL [facility] Bilirubin, total 0.4 0.1 - 1.2 mg/dL [facility] Protein, pl 7.5 6.5 - 8.5 g/dL [facility] Albumin 4.1 3.5 - 5.0 g/dL [facility] Alk phos 139(H) 40 - 130 Units/L [facility] ALT 33 7 - 45 Units/L [facility] AST 58(H) 10 - 45 Units/L [facility] Blood 01/22/2025 12:4 0 PM CDT 01/22/2025 3:52 PM CDT us Notinfile Unknown LAB BLOOD ORDERABLES Final Res ult [facility] Department [place] [address] * TRANSTHORACIC ECHO (TTE) COMPLETE W DOPPLER/CF W CONTRAST (01/15/2025 9:57 AM CDT) EF Mod BP 55 % CONS SCIMAGE Anatomical Region Laterality Modality Ultrasound 01/15/2025 8:50 AM CDT Narrative 01/15/2025 11:[address] [facility] [place] [address] [place] [address] Transthoracic Echocardiographic Report Patient Name: HAYLEY LEÓN L : 1990 (34y 11m) Gender: F Study Date: 01/15/2025 08:50:13 AM Ht(Inch): 61 Wt(Lb): 102.07 BSA: 1.41 Bomb Loader: Roza. Watkins [facility] Location: [facility] Order Provider: BO FRIED Heart Rate: 81 [...] Note Italo Hill MD PhD - 01/15/2025 [facility] [place] [place] [address] [place] [address] Transthoracic Echocardiographic Report Patient Name: HAYLEY LEÓN L : 1990 (34y 11m) Gender: F Study Date: 01/15/2025 08:50:13 AM Ht(Inch): 61 Wt(Lb): 102.07 BSA: 1.41 Bomb Loader: Roza. Watkins [facility] Location: [facility] Order Provider:BO FRIED Heart Rate: 81 BMI: [...] LA Length 2C 3.64 cm MV Decel Ttti721.25 msec [ 104.00 - 258.00 ] LA [...] NP LAB BLOOD ORDERABLES Krystyna meyers Result SHONA [facility] Department [place] [address] * (ABNORMAL) Basic metabolic panel (01/01/2025 2:10 PM CDT) Sodium 139 135 - 145 mmol/L Potassium, pl 2.9(L) 3.3 - 4.9 mmol/L [facility] Chloride 98 97 - 110 mmol/L [facility] [facility] CO2 26 22 - 32 mmol/L [facility] Anion gap 15 2 - 15 mmol/L [facility] BUN 11 6 - 25 mg/dL [facility] Creatinine 0.63 0.60 - 1.10 mg/dL [facility] Glucose 91 70 - 199 mg/dL [facility] Comment: Interpretive Data Fasting glucose >/= 126 [...] 2022. Calcium 9.2 8.5 - 10.3 mg/dL [facility] Blood 01/01/2025 2:10 PM CDT 01/01/2025 6:04 PM CDT Dorothea Stephen NP LAB BLOOD ORDERABLES Krystyna meyers Result [facility] Department [place] [address] * Glucose, random (Outreach) (12/27/2024 9:13 AM [...] 12/27/2024 10:38 AM CDT us Dorothea Stephen DIRECTOR TELEHEALTH LAB BLOOD ORDERABLES Krystyna l Result Performing Organization Address City/[facility]/ZIP Co de Phone Number SHONA [facility] Department [place] [address] * eGFR (12/27/2024 9:13 AM CDT) eGFR [...] 12/27/2024 10:50 AM CDT us Dorothea Stephen DIRECTOR TELEHEALTH LAB BLOOD ORDERABLES Krystyna l Result Performing Organization Address City/[facility]/ZIP Co de Phone Number SHONA [facility] Department [place] [address] * Differential, auto (12/27/2024 9:13 AM CDT) Pathologist [facility] [place] Neutrophil abs 3.36 1.50 - 6.50 K/cumm Imm gran abs 0.01 0.00 - 0.10 K/cumm [facility] Lymphocyte abs 1.97 0.80 - 3.30 K/cumm [facility] Monocyte abs 0.37 0.20 - 0.80 K/cumm [facility] Eosinophil abs 0.18 0.00 - 0.50 K/cumm [facility] Basophil abs 0.04 0.00 - 0.10 K/cumm [facility] Neutrophil pct 56.7 % [facility] Comment: Interpretive Data Percent cell count reference ranges are not reported, since discordance with absolute values may lead to misinterpretation of CBC data. Current Interpretive Data was last revised on 2017. Imm gran pct 0.2 % [facility] Comment: Interpretive Data Percent cell count reference ranges are not reported, since discordance with absolute values may lead to misinterpretation of CBC data. Current Interpretive Data was last revised on 2017. Lymphocyte pct 33.2 % [facility] Comment: Interpretive Data Percent cell count reference ranges are not reported, since discordance with absolute values may lead to misinterpretation of CBC data. Current Interpretive Data was last revised on 2017. Monocyte pct 6.2 % [facility] Comment: Interpretive Data Percent cell count reference ranges are not reported, since discordance with absolute values may lead to misinterpretation of CBC data. Current Interpretive Data was last revised on 2017. Eosinophil pct 3.0 % [facility] Comment: Interpretive Data Percent cell count reference ranges are not reported, since discordance with absolute values may lead to misinterpretation of CBC data. Current Interpretive Data was last revised on 2017. Basophil pct 0.7 % [facility] Comment: Interpretive Data Percent cell count reference ranges are not reported, since discordance with absolute values may lead to misinterpretation of CBC data. Current Interpretive Data was last revised on 2017. Blood 12/27/2024 9:13 AM CDT 12/27/2024 10:37 AM CDT us Dorothea Cecy Dolores DIRECTOR TELEHEALTH LAB BLOOD ORDERABLES Krystyna l Result Performing Organization Address [facility] Co de Phone Number [facility] Department [place] [address] * (ABNORMAL) Comprehensive metabolic panel, without glucose (Outreach) (12/27/2024 9:13 AM CDT) Pathologist [facility] [place] Sodium 136 135 - 145 mmol/L Potassium, pl 2.9(L) 3.3 - 4.9 mmol/L [facility] Chloride 98 97 - 110 mmol/L [facility] CO2 24 22 - 32 mmol/L [facility] Anion gap 14 2 - 15 mmol/L [facility] BUN 9 6 - 25 mg/dL [facility] Creatinine 0.64 0.60 - 1.10 mg/dL [facility] Calcium 9.7 8.5 - 10.3 mg/dL [facility] Protein, pl 8.2 6.5 - 8.5 g/dL [facility] Albumin 4.2 3.5 - 5.0 g/dL [facility] Bilirubin, total 0.7 0.1 - 1.2 mg/dL [facility] Alk phos 175(H) 40 - 130 Units/L [facility] AST 51(H) 10 - 45 Units/L [facility] ALT 25 7 - 45 Units/L [facility] Blood 12/27/2024 9:13 AM CDT 12/27/2024 10:38 AM CDT Dorothea Stephen DIRECTOR TELEHEALTH LAB BLOOD ORDERABLES Krystyna l Result [facility] Department [place] [address] * (ABNORMAL) CBC with auto differential (12/27/2024 9:13 AM CDT) Pathologist [facility] [place] WBC 5.93 3.80 - 9.90 K/cumm Hgb 13.9 11.9 - 15.5 g/dL [facility] Hct 40.1 35.6 - 45.5 % [facility] Plt 138(L) 150 - 400 K/cumm [facility] MPV 11.4 9.1 - 12.3 fL [facility] RBC 4.23 3.90 - 5.20 M/cumm [facility] MCV 94.8 81.3 - 96.4 fL [facility] MCH 32.9 27.1 - 33.3 pg [facility] MCHC 34.7 32.3 - 35.7 g/dL [facility] RDW CV 13.0 11.1 - 14.9 % [facility] RDW SD 45.3 35.7 - 48.1 fL [facility] NRBC abs 0.00 0.00 - 0.01 K/cumm [facility] Blood 12/27/2024 9:13 AM CDT 12/27/2024 10:37 AM CDT Dorothea Stephen NP LAB BLOOD ORDERABLES Krystyna l Result Performing Organization Address City/[facility]/ZIP Co de Phone Number [facility] Department [place] [address] * Magnesium (12/27/2024 9:13 AM CDT) Magnesium 1.9 1.4 - 2.5 mg/dL Blood 12/27/2024 9:13 AM CDT 12/27/2024 10:50 AM CDT Mo Villatoro MD LAB BLOOD ORDERABLES Final Resul t [facility] [employer] [place] [address] * Blood culture Blood (12/27/2024 9:05 AM CDT) Report Final Report: No growth Blood 12/27/2024 9:05 AM CDT 12/27/2024 11:47 AM CDT Narrative [facility] - 12/31/2024 12:00 PM CDT Specimen received [...] performance characteristics have been verified by the [facility]. For questions about this culture, contact the Microbiology Laboratory at [phone]. Interpretive data was last revised on 24. Dorothea Stephen NP LAB MICROBIOLOGY - GENERA L ORDERABLES Final Result [facility] Department [place] [address] * Blood culture Blood (12/27/2024 9:05 AM CDT) Report Final Report: No growth Blood 12/27/2024 9:05 AM CDT 12/27/2024 11:47 [address] [facility] - 12/31/2024 12:00 PM CDT Specimen [...] performance characteristics have been verified by the [facility]. For questions about this culture, contact the Microbiology Laboratory at [phone]. Interpretive data was last revised on 24. us Dorothea Stephen NP LAB MICROBIOLOGY - GENERA L ORDERABLES Final Result Performing Organization Address [facility] de Phone Number SHONA [facility] Department [place] [address] * (ABNORMAL) Cystatin C (11/28/2024 10:45 AM CDT) Pathologist [facility] [place] Cystatin C 1.23(H) 0.60 - 1.20 mg/L [...] revised on 2020. Testing performed by: [facility], [place], [place]., [address] Blood 11/28/2024 10:4 5 AM CDT 11/28/2024 12:03 PM CDT us Pieter Wynn MD LAB BLOOD ORDERABLES Final Resu lt Performing Organization Address [facility] Co de Phone Number [facility] Department [place] [address] * eGFR (11/27/2024 9:44 PM CDT) Pathologist [...] MD LAB BLOOD ORDERABLES Krystyna meyers Result [facility] Department [place] [address] * (ABNORMAL) Differential, auto (11/27/2024 9:44 PM CDT) Pathologist [facility] [place] Neutrophil abs 2.70 1.50 - 6.50 K/cumm Imm gran abs 0.03 0.00 - 0.10 K/cumm [facility] Lymphocyte abs 2.90 0.80 - 3.30 K/cumm [facility] Monocyte abs 0.50 0.20 - 0.80 K/cumm [facility] Eosinophil abs 0.13 0.00 - 0.50 K/cumm [facility] Basophil abs 0.13(H) 0.00 - 0.10 K/cumm [facility] Neutrophil pct 42.3 % [facility] Comment: Interpretive Data Percent cell count reference ranges are not reported, since discordance with absolute values may lead to misinterpretation of CBC data. Current Interpretive Data was last revised on 2017. Imm gran pct 0.5 % [facility] Comment: Interpretive Data Percent cell count reference ranges are not reported, since discordance with absolute values may lead to misinterpretation of CBC data. Current Interpretive Data was last revised on 2017. Lymphocyte pct 45.4 % [facility] Comment: Interpretive Data Percent cell count reference ranges are not reported, since discordance with absolute values may lead to misinterpretation of CBC data. Current Interpretive Data was last revised on 2017. Monocyte pct 7.8 % [facility] Comment: Interpretive Data Percent cell count reference ranges are not reported, since discordance with absolute values may lead to misinterpretation of CBC data. Current Interpretive Data was last revised on 2017. Eosinophil pct 2.0 % [facility] Comment: Interpretive Data Percent cell count reference ranges are not reported, since discordance with absolute values may lead to misinterpretation of CBC data. Current Interpretive Data was last revised on 2017. Basophil pct 2.0 % [facility] Comment: Interpretive Data Percent cell count reference ranges are not reported, since discordance with absolute values may lead to misinterpretation of CBC data. Current Interpretive Data was last revised on 2017. Blood 11/27/2024 9:44 PM CDT 11/27/2024 10:41 PM CDT us Lee Elena MD LAB BLOOD ORDERABLES Krystyna l Result [facility] Department [place] [address] * (ABNORMAL) CBC with auto differential (11/27/2024 9:44 PM CDT) WBC 6.39 3.80 - 9.90 K/cumm Hgb 10.5(L) 11.9 - 15.5 g/dL [facility] Hct 32.5(L) 35.6 - 45.5 % [facility] Plt 419(H) 150 - 400 K/cumm [facility] MPV 9.3 9.1 - 12.3 fL [facility] RBC 3.10(L) 3.90 - 5.20 M/cumm [facility] MCV 104.8(H) 81.3 - 96.4 fL [facility] MCH 33.9(H) 27.1 - 33.3 pg [facility] MCHC 32.3 32.3 - 35.7 g/dL [facility] RDW CV 18.6(H) 11.1 - 14.9 % [facility] RDW SD 71.7(H) 35.7 - 48.1 fL [facility] NRBC abs 0.00 0.00 - 0.01 K/cumm [facility] Blood 11/27/2024 9:44 PM CDT 11/27/2024 10:41 PM CDT us Lee Elena MD LAB BLOOD ORDERABLES Krystyna l Result [facility] Department [place] [address] * (ABNORMAL) Vitamin D 25 hydroxy (11/27/2024 9:44 PM CDT) [facility] Vitamin D 25-OH 27(L) 30 - 80 ng/mL Blood 11/27/2024 9:44 PM CDT 11/27/2024 10:41 PM CDT us Pieter Wynn MD LAB BLOOD ORDERABLES Final Resu lt [facility] [place] [place] [address] * Protime-INR (11/27/2024 9:44 PM CDT) PT 10.2 9.7 - 13.0 sec INR 0.95 0.90 - 1.20 [facility] Comment: Interpretive data Oral anticoagulant therapeutic ranges: Venous thromboembolism prophylaxis or treatment: 2.0-3.0 CARDIOLOGY Standard range: 2.0-3.0 High-intensity range: 2.5-3.5 Refer to indication-specific guidelines for appropriate target ranges for prosthetic heart valve replacement. Current interpretive data was last revised on 2019. Blood 11/27/2024 9:44 PM CDT 11/27/2024 10:45 PM CDT Lee Elena MD LAB BLOOD ORDERABLES Krystyna l Result Performing Organization Address City/[facility] Co de Phone Number [facility] [employer] [place] [address] * (ABNORMAL) Phosphorus (11/27/2024 9:44 PM CDT) Pathologist [facility] [place] Phosphorus, pl 6.6(H) 2.3 - 4.5 mg/dL Blood 11/27/2024 9:44 PM CDT 11/27/2024 10:41 PM CDT Lee Elnea MD LAB BLOOD ORDERABLES Krystyna l Result Performing Organization Address [facility] Co de Phone Number [facility] [employer] [place] [address] * Magnesium (11/27/2024 9:44 PM CDT) [facility] Magnesium 1.6 1.4 - 2.5 mg/dL Blood 11/27/2024 9:44 PM CDT 11/27/2024 10:41 PM CDT Lee Elena MD LAB BLOOD ORDERABLES Krystyna l Result Performing Organization Address City/[facility] Co de Phone Number [facility] Department [place] [address] * (ABNORMAL) Hepatic function panel (11/27/2024 9:44 PM CDT) [facility] Bilirubin, total 0.4 0.1 - 1.2 mg/dL Bilirubin, direct 0.2 0.1 - 0.3 mg/dL [facility] Protein, pl 7.3 6.5 - 8.5 g/dL [facility] Albumin 3.4(L) 3.5 - 5.0 g/dL [facility] Alk phos 133(H) 40 - 130 Units/L [facility] ALT 17 7 - 45 Units/L [facility] AST 36 10 - 45 Units/L [facility] Blood 11/27/2024 9:44 PM CDT 11/27/2024 10:41 PM CDT Lee Elena MD LAB BLOOD ORDERABLES Krystyna meyers Result [facility] Department [place] [address] * (ABNORMAL) Basic metabolic panel (11/27/2024 9:44 PM CDT) [facility] Sodium 139 135 - 145 mmol/L Potassium, pl 4.3 3.3 - 4.9 mmol/L [facility] Chloride 101 97 - 110 mmol/L [facility] CO2 31 22 - 32 mmol/L [facility] Anion gap 7 2 - 15 mmol/L [facility] BUN 18 6 - 25 mg/dL [facility] Creatinine 0.50(L) 0.60 - 1.10 mg/dL [facility] Glucose 99 70 - 199 mg/dL [facility] Comment: Interpretive Data Fasting glucose >/= 126 [...] Calcium 10.0 8.5 - 10.3 mg/dL [facility] Blood 11/27/2024 9:44 PM CDT 11/27/2024 10:41 PM CDT Lee Elena MD LAB BLOOD ORDERABLES Krystyna l Result Performing Organization Address City/[facility]/ZIP Co de Phone Number [facility] [employer] [place] [address] * eGFR (11/26/2024 9:38 PM CDT) eGFR [...] ORDERABLES Krystyna l Result Performing Organization Address City/[facility]/ZIP Co de Phone Number [facility] Department of [employer] [place] [address] * (ABNORMAL) Differential, auto (11/26/2024 9:38 PM CDT) Neutrophil abs 2.02 1.50 - 6.50 K/cumm Imm gran abs 0.03 0.00 - 0.10 K/cumm [facility] Lymphocyte abs 3.04 0.80 - 3.30 K/cumm [facility] Monocyte abs 0.56 0.20 - 0.80 K/cumm [facility] Eosinophil abs 0.10 0.00 - 0.50 K/cumm [facility] Basophil abs 0.11(H) 0.00 - 0.10 K/cumm [facility] Neutrophil pct 34.4 % [facility] Comment: Interpretive Data Percent cell count reference ranges are not reported, since discordance with absolute values may lead to misinterpretation of CBC data. Current Interpretive Data was last revised on 2017. Imm gran pct 0.5 % [facility] Comment: Interpretive Data Percent cell count reference ranges are not reported, since discordance with absolute values may lead to misinterpretation of CBC data. Current Interpretive Data was last revised on 2017. Lymphocyte pct 51.9 % [facility] Comment: Interpretive Data Percent cell count reference ranges are not reported, since discordance with absolute values may lead to misinterpretation of CBC data. Current Interpretive Data was last revised on 2017. Monocyte pct 9.6 % [facility] Comment: Interpretive Data Percent cell count reference ranges are not reported, since discordance with absolute values may lead to misinterpretation of CBC data. Current Interpretive Data was last revised on 2017. Eosinophil pct 1.7 % [facility] Comment: Interpretive Data Percent cell count reference ranges are not reported, since discordance with absolute values may lead to misinterpretation of CBC data. Current Interpretive Data was last revised on 2017. Basophil pct 1.9 % [facility] Comment: Interpretive Data Percent cell count reference ranges are not reported, since discordance with absolute values may lead to misinterpretation of CBC data. Current Interpretive Data was last revised on 2017. Blood 11/26/2024 9:38 PM CDT 11/26/2024 10:36 PM CDT Lee Elena MD LAB BLOOD ORDERABLES Krystyna mira Result Performing Organization Address [facility] Co de Phone Number [facility] Department [place] [address] * (ABNORMAL) CBC with auto differential (11/26/2024 9:38 PM CDT) Pathologist [facility] [place] WBC 5.86 3.80 - 9.90 K/cumm Hgb 9.7(L) 11.9 - 15.5 g/dL [facility] Hct 29.7(L) 35.6 - 45.5 % [facility] Plt 398 150 - 400 K/cumm [facility] MPV 9.2 9.1 - 12.3 fL [facility] RBC 2.87(L) 3.90 - 5.20 M/cumm [facility] MCV 103.5(H) 81.3 - 96.4 fL [facility] MCH 33.8(H) 27.1 - 33.3 pg [facility] MCHC 32.7 32.3 - 35.7 g/dL [facility] RDW CV 18.7(H) 11.1 - 14.9 % [facility] RDW SD 71.5(H) 35.7 - 48.1 fL [facility] NRBC abs 0.00 0.00 - 0.01 K/cumm [facility] Blood 11/26/2024 9:38 PM CDT 11/26/2024 10:36 PM CDT Lee Elena MD LAB BLOOD ORDERABLES Krystyna meyers Result Performing Organization Address City/[facility]/ZIP Co de Phone Number [facility] Department [place] [address] * (ABNORMAL) Protime-INR (11/26/2024 9:38 PM CDT) PT 9.5(L) 9.7 - 13.0 sec INR 0.88(L) 0.90 - 1.20 [facility] Comment: Interpretive data Oral anticoagulant therapeutic ranges: Venous thromboembolism prophylaxis or treatment: 2.0-3.0 CARDIOLOGY Standard range: 2.0-3.0 High-intensity range: 2.5-3.5 Refer to indication-specific guidelines for appropriate target ranges for prosthetic heart valve replacement. Current interpretive data was last revised on 2019. Blood 11/26/2024 9:38 PM CDT 11/26/2024 10:43 PM CDT Lee Elena MD LAB BLOOD ORDERABLES Krystyna l Result Performing Organization Address City/[facility] Co de Phone Number [facility] [employer] [place] [address] * (ABNORMAL) Phosphorus (11/26/2024 9:38 PM CDT) Phosphorus, pl 5.7(H) 2.3 - 4.5 mg/dL Blood 11/26/2024 9:38 PM CDT 11/26/2024 10:42 PM CDT Result [facility] Lee Elena MD LAB BLOOD ORDERABLES Krystyna l Result Performing Organization Address [facility] Co de Phone Number [facility] [employer] [place] [address] * Magnesium (11/26/2024 9:38 PM CDT) Magnesium 2.1 1.4 - 2.5 mg/dL Blood 11/26/2024 9:38 PM CDT 11/26/2024 10:42 PM CDT Lee Elena MD LAB BLOOD ORDERABLES Krystyna l Result Performing Organization Address City/[facility] Co de Phone Number [facility] [employer] [place] [address] * (ABNORMAL) Hepatic function panel (11/26/2024 9:38 PM CDT) [facility] Bilirubin, total 0.3 0.1 - 1.2 mg/dL Bilirubin, direct 0.2 0.1 - 0.3 mg/dL [facility] Protein, pl 6.5 6.5 - 8.5 g/dL [facility] Albumin 2.8(L) 3.5 - 5.0 g/dL [facility] Alk phos 132(H) 40 - 130 Units/L [facility] ALT 17 7 - 45 Units/L [facility] AST 38 10 - 45 Units/L [facility] Blood 11/26/2024 9:38 PM CDT 11/26/2024 10:42 PM CDT Lee Elena MD LAB BLOOD ORDERABLES Krystyna l Result Performing Organization Address City/State/[facility] Co de Phone Number [facility] Department [place] [address] * (ABNORMAL) Basic metabolic panel (11/26/2024 9:38 PM CDT) [facility] Sodium 141 135 - 145 mmol/L Potassium, pl 4.1 3.3 - 4.9 mmol/L [facility] Chloride 101 97 - 110 mmol/L [facility] CO2 29 22 - 32 mmol/L [facility] Anion gap 11 2 - 15 mmol/L [facility] BUN 15 6 - 25 mg/dL [facility] Creatinine 0.54(L) 0.60 - 1.10 mg/dL [facility] Glucose 89 70 - 199 mg/dL [facility] Comment: Interpretive Data Fasting glucose >/= 126 [...] Calcium 9.1 8.5 - 10.3 mg/dL [facility] Blood 11/26/2024 9:38 PM CDT 11/26/2024 10:42 PM CDT us Lee Elena MD LAB BLOOD ORDERABLES Krystyna mira Result [facility] Department [place] [address] * TRANSTHORACIC ECHO (TTE) LIMITED/FOLLOW UP W LTD DOPPLER/CF W CONTRAST (11/26/2024 1:54 PM CDT) Estimated EF 55-60 % CONS SCIMAGE Anatomical Region Laterality Modality Ultrasound 11/26/2024 1:05 PM CDT Narrative 11/26/2024 2:[address] [facility] [place] [place] [address] Transthoracic Echocardiographic Report Patient Name: HAYLEY LEÓN L : 1990 (34y 9m) Gender: F Study Date: 11/26/2024 01:05:04 PM Ht(Inch): 61 Wt(Lb): 98.1 BSA: 1.38 Bomb Loader: iLse De Anda Location: [id number] Order Provider: PIETER WYNN Heart Rate: 72 BMI: 18.53 BP: 92 / 57 Ref Provider: PIETER WYNN PROCEDURES: Echocardiographic Report: Follow-Up Echocardiography with [...] Procedure Note Jim Malloy MD - 11/26/2024 [facility] [place] [address] Transthoracic Echocardiographic Report Patient Name: HAYLEY LEÓN L : 1990 (34y 9m) Gender: F Study Date: 11/26/2024 01:05:04 PM Ht(Inch): 61 Wt(Lb): 98.1 BSA: 1.38 Bomb Loader: Lise De Anda Location: [id number] Order Provider:PIETER WYNN Heart Rate: 72 BMI: 18.53 BP: 92 / 57 Ref Provider: PIETER WYNN PROCEDURES: Echocardiographic Report: Follow-Up Echocardiography with [...] Jim Malloy M.D. 11/26/2024 2:35:57 PM CDT Pieter Wynn MD CV ECHO PROCEDURES Final Result * POCT glucose (11/26/2024 7:38 AM CDT) [facility] Glucose, POC 107 70 - 199 mg/dL Blood 11/26/2024 7:38 AM CDT 11/26/2024 7:38 AM CDT us Pieter Wynn MD LAB POCT ORDERABLES - DEVICE Fi nal Result [facility] [place] [address] * eGFR (11/25/2024 9:19 PM CDT) [facility] eGFR >90 >=60 mL/min/1. 73 m2 Comment: [...] Lee Elena MD LAB BLOOD ORDERABLES Krystyna myeers Result [facility] Department [place] [address] * Differential, auto (11/25/2024 9:19 PM CDT) Neutrophil abs 1.90 1.50 - 6.50 K/cumm Imm gran abs 0.02 0.00 - 0.10 K/cumm [facility] Lymphocyte abs 2.86 0.80 - 3.30 K/cumm [facility] Monocyte abs 0.53 0.20 - 0.80 K/cumm [facility] Eosinophil abs 0.11 0.00 - 0.50 K/cumm [facility] Basophil abs 0.09 0.00 - 0.10 K/cumm [facility] Neutrophil pct 34.5 % [facility] Comment: Interpretive Data Percent cell count reference ranges are not reported, since discordance with absolute values may lead to misinterpretation of CBC data. Current Interpretive Data was last revised on 2017. Imm gran pct 0.4 % [facility] Comment: Interpretive Data Percent cell count reference ranges are not reported, since discordance with absolute values may lead to misinterpretation of CBC data. Current Interpretive Data was last revised on 2017. Lymphocyte pct 51.9 % [facility] Comment: Interpretive Data Percent cell count reference ranges are not reported, since discordance with absolute values may lead to misinterpretation of CBC data. Current Interpretive Data was last revised on 2017. Monocyte pct 9.6 % [facility] Comment: Interpretive Data Percent cell count reference ranges are not reported, since discordance with absolute values may lead to misinterpretation of CBC data. Current Interpretive Data was last revised on 2017. Eosinophil pct 2.0 % [facility] Comment: Interpretive Data Percent cell count reference ranges are not reported, since discordance with absolute values may lead to misinterpretation of CBC data. Current Interpretive Data was last revised on 2017. Basophil pct 1.6 % [facility] Comment: Interpretive Data Percent cell count reference ranges are not reported, since discordance with absolute values may lead to misinterpretation of CBC data. Current Interpretive Data was last revised on 2017. Blood 11/25/2024 9:19 PM CDT 11/25/2024 10:49 PM CDT Lee Elena MD LAB BLOOD ORDERABLES Krystyna meyers Result [facility] Department [place] [address] * (ABNORMAL) CBC with auto differential (11/25/2024 9:19 PM CDT) Pathologist [facility] WBC 5.51 3.80 - 9.90 K/cumm Hgb 10.2(L) 11.9 - 15.5 g/dL [facility] Hct 31.9(L) 35.6 - 45.5 % [facility] Plt 466(H) 150 - 400 K/cumm [facility] MPV 9.4 9.1 - 12.3 fL [facility] RBC 3.06(L) 3.90 - 5.20 M/cumm [facility] MCV 104.2(H) 81.3 - 96.4 fL [facility] MCH 33.3 27.1 - 33.3 pg [facility] MCHC 32.0(L) 32.3 - 35.7 g/dL [facility] RDW CV 19.1(H) 11.1 - 14.9 % [facility] RDW SD 72.8(H) 35.7 - 48.1 fL [facility] NRBC abs 0.00 0.00 - 0.01 K/cumm [facility] Blood 11/25/2024 9:19 PM CDT 11/25/2024 10:49 PM CDT Lee Elena MD LAB BLOOD ORDERABLES Krystyna l Result Performing Organization Address [facility] de Phone Number [facility] [employer] [place], [place] [id number] * Protime-INR (11/25/2024 9:19 PM CDT) PT 10.0 9.7 - 13.0 sec INR 0.93 0.90 - 1.20 [facility] Comment: Interpretive data Oral anticoagulant therapeutic ranges: Venous thromboembolism prophylaxis or treatment: 2.0-3.0 CARDIOLOGY Standard range: 2.0-3.0 High-intensity range: 2.5-3.5 Refer to indication-specific guidelines for appropriate target ranges for prosthetic heart valve replacement. Current interpretive data was last revised on 2019. Blood 11/25/2024 9:19 PM CDT 11/25/2024 10:46 PM CDT Lee Elena MD LAB BLOOD ORDERABLES Krystyna l Result Performing Organization Address [facility] de Phone Number [facility] [employer] [place] [address] * (ABNORMAL) Phosphorus (11/25/2024 9:19 PM CDT) Phosphorus, pl 5.2(H) 2.3 - 4.5 mg/dL Blood 11/25/2024 9:19 PM CDT 11/25/2024 10:47 PM CDT Lee Elena MD LAB BLOOD ORDERABLES Krystyna l Result Performing Organization Address [facility] Co de Phone Number [facility] Department [place] [address] * Magnesium (11/25/2024 9:19 PM CDT) Pathologist [facility] Magnesium 1.6 1.4 - 2.5 mg/dL Blood 11/25/2024 9:19 PM CDT 11/25/2024 10:47 PM CDT Lee Elena MD LAB BLOOD ORDERABLES Krystyna l Result Performing Organization Address [facility] de Phone Number [facility] Department [place] [address] * (ABNORMAL) Hepatic function panel (11/25/2024 9:19 PM CDT) Bilirubin, total 0.4 0.1 - 1.2 mg/dL Bilirubin, direct 0.2 0.1 - 0.3 mg/dL [facility] Protein, pl 6.8 6.5 - 8.5 g/dL [facility] Albumin 3.0(L) 3.5 - 5.0 g/dL [facility] Alk phos 142(H) 40 - 130 Units/L [facility] ALT 16 7 - 45 Units/L [facility] AST 35 10 - 45 Units/L [facility] Blood 11/25/2024 9:19 PM CDT 11/25/2024 10:47 PM CDT Lee Elena MD LAB BLOOD ORDERABLES Krystyna l Result Performing Organization Address [facility] Co de Phone Number [facility] Department [place] [address] * (ABNORMAL) Basic metabolic panel (11/25/2024 9:19 PM CDT) Pathologist [facility] Sodium 143 135 - 145 mmol/L Potassium, pl 4.3 3.3 - 4.9 mmol/L [facility] Chloride 104 97 - 110 mmol/L [facility] CO2 29 22 - 32 mmol/L [facility] Anion gap 10 2 - 15 mmol/L [facility] BUN 16 6 - 25 mg/dL [facility] Creatinine 0.46(L) 0.60 - 1.10 mg/dL [facility] Glucose 99 70 - 199 mg/dL [facility] Comment: Interpretive Data Fasting glucose >/= 126 [...] 2022. Calcium 9.5 8.5 - 10.3 mg/dL [facility] Blood 11/25/2024 9:19 PM CDT 11/25/2024 10:47 PM CDT Lee Elena MD LAB BLOOD ORDERABLES Krystyna meyers Result [facility] Department [place] [address] * Hepatitis panel, acute Blood (11/03/2024 2:31 PM CDT) [facility] Hep A IgM Nonreactive Nonreactive Hep B core IgM Nonreactive Nonreactive [facility] Hep C Ab Nonreactive Nonreactive [facility] Comment:Antibodies to HCV no t detected. Does NOT exclude the possibility of recent exposure to HCV. Current interpretive data was last revised on 22 HepBsAg Nonreactive Nonreactive [facility] Blood 11/03/2024 2:31 PM CDT 11/03/2024 2:38 PM CDT Mar George MD LAB MICROBIOLOGY - GENERAL ORDERABLES Final Result [facility] Department [place] [address] * THINPREP TIS PAP REFLEX HPV mRNA E6/E7, CHLAMYDIA/N.GONORRHOEAE (09/14/2016 12:56 PM MELT SUPERVISOR) CLINICAL INFORMATION [facility] HISTORICAL RESULTS Comment: LMP: [facility] HISTORICAL RESULTS PREV. PAP: [facility] HISTORICAL RESULTS Comment:2011 PREV. BX: [facility] HISTORICAL RESULTS Comment:UNKNOWN SOURCE: [facility] HISTORICAL RESULTS Comment:Cervix, Endocervix STATEMENT OF ADEQUACY: [facility] HISTORICAL RESULTS Comment:Satisfactory for savana luation. Endocervical/transformation zone component present. INTERPRETATION/RES ULT: [facility] HISTORICAL RESULTS Comment:Negative for intraep ithelial lesion or malignancy. COMMENT: [facility] HISTORICAL RESULTS Comment:This Pap test has be en evaluated with computer assisted technology. FIBRE TECHNOLOGIST: [facility] HISTORICAL RESULTS Comment:YQ, CT(ASCP) CT scre ening location: [place] [address] [place] [address] C. trachomatis RNA NOT DETECTED NOT DETECTED [facility] HISTORICAL RESULTS N. gonorrhoeae RNA NOT DETECTED NOT DETECTED [facility] HISTORICAL RESULTS COMMENT [facility] HISTORICAL RESULTS Comment: This test was performed using the APTIMA COMBO2 Assay ([employer] The analytical performance characteristics of this assay, when used to test SurePath specimens have been determined by [email or web address]. 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
--- OUTSIDE RECORDS SUMMARY | 2025-02-25 18:18 | XMS_ITS | Clinical Summary ---
Author Organization [facility] dipika [facility] Address [address] [place] [address] [place] [address] Care Team Providers Care Grip Name Role Phone Unavailable Primary Care Provider [...]
--- OUTSIDE RECORDS SUMMARY | 2025-02-25 18:18 | XMS_ITS | Encounter Summary ---
Author Organization [facility] Care Team Providers Care Furniture Lumber Production Worker Name Role Phone Christian Merritt MD Primary Care Provider [phone] Mo Mitchell MD Primary Care Provider [phone] Neeta Ott RN Unavailable Encounter Details Date Type Department Care Team (Latest Contact Info) Description 12/09/2016 Orders Only [facility]INCONV Provider, MD Serge [address] [place] [address] Social History Tobacco Use Types Packs/Day Years Used Date Smoking Tobacco: Never Assessed Comments Unknown Sex and Gender Information Value Date Recorded Sex Assigned at Not on file 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
--- OUTSIDE RECORDS SUMMARY | 2025-02-25 18:18 | XMS_ITS | Encounter Summary ---
Author Organization [facility] Facility Care Team Providers Care Trauma Director Name Role Phone Christian Merritt MD Primary Care Provider [phone] Mo Mitchell MD Primary Care Provider [phone] Neeta Ott RN Unavailable [phone] Encounter Details Date Type Department Care Team (Latest Contact Info) Description 12/06/2016 Orders Only [facility] CLINCONV Provider, MD Serge [address] [place] [address] Social History Tobacco Use Types Packs/Day Years Used Date Smoking Tobacco: Never Assessed Comments Unknown Sex and Gender Information Value Date Recorded Sex Assigned at Not on file 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
--- OUTSIDE RECORDS SUMMARY | 2025-02-25 18:19 | XMS_ITS | Referral Summary ---
Author Organization [facility] Address [address] [place] [address] Care Team Providers Care Customs Guard Name Role Phone Mo Mitchell MD Primary Care Provider [phone] Encounters Date Type Department Care Team Description 02/22/2025 Home Care Visit [address] [address] [address] [place] [address] Nayely Pedroza, BRITTANIE SN VIRTUAL NON OASIS DISCHARGE 02/20/2025 Home Care Visit [address] [place] [address] Nayely Pedroza, BRITTANIE TELEPHONE ENCOUNTER 02/19/2025 Home Care Visit [address] [place] [address] Nayely Pedroza, BRITTANIE TELEPHONE ENCOUNTER 02/15/2025 Orders Only [facility] Cardiothoracic Surgery [address] [facility] Medicine 8th Floor [phone] [place] [address] Bo Fried MD Mass of left cardiac ventricle (Primary Dx) 02/15/2025 Telephone [facility] Home Care Services [address] [facility] [address] [place] [address] Unknown, Notinfile 02/14/2025 Telephone [facility] Home Care Services [address] [facility] [address] [place] [address] , summer02/13/2025 Orders Only [facility] Cardiothoracic Surgery [address] [facility] 8th Floor [address] [address] [place] [phone] Bo Fried MD Mass of left cardiac ventricle (Primary Dx) 02/12/2025 2:30 PM CDT Home Care Visit [address] [place] [address] Nayely Pedroza, BRITTANIE SN HOME VISIT 02/07/2025 Telephone [facility] Infectious Diseases [address] [address] [place] [address] Rosangela Simental, RAIL OPERATOR 02/07/2025 9:00 AM CDT Home Care Visit [address] [place] [address] Pia Swan RN SN HOME VISIT 02/07/2025 10:00 AM CDT Home Care Visit [address] [place] [address] Isabelle Campbell, OT OT INITIAL EVALUATION 02/06/2025 2:00 PM CDT Home Care Visit [address] [place] [address] Thang Solorzano, PT PT INITIAL EVALUATION 02/05/2025 Home Care Visit [address] [place] [address] Pia Moon, RN TELEPHONE ENCOUNTER 02/01/2025 Telephone [facility] Cardiology [address] [facility] 8th [place] [address] [place] [address] Scheduling Appointments 01/31/2025 Plan of Care Documentation [address] [place] [address] 01/31/2025 2:00 PM CDT Home Care Visit [address] [place] [address] Nayely Pedroza, BRITTANEI SN OASIS RECERTIFICATION 01/29/2025 Home Care Visit [address] [place] [address] Nayely Pedroza, RN TELEPHONE ENCOUNTER 01/28/2025 Home Care Visit [address] [place] [address] Nayely Pedroza, BRITTANIE TELEPHONE ENCOUNTER 01/24/2025 9:40 AM CDT Office Visit [facility] Infectious Diseases [address] [facility] [address] [place] [address] Dorothea Stephen NP MSSA bacteremia (Primary Dx) 01/22/2025 12:40 PM CDT - 01/22/2025 11:59 PM CDT Hospital Encounter [facility] [address] [place] [address] Discharge Disposition: Discharge to home or self care 01/22/2025 12:00 PM CDT Home Care [place] [address] [place] [address] Nayely Pedroza, BRITTANIE SN HOME VISIT 01/18/2025 Plan of Care Documentation [address] [place] [address] 01/18/2025 10:30 AM CDT Home Care Visit [address] [place] [address] Billy Zarco RN SN OASIS RESUMPTION OF CARE 01/17/2025 Orders Only [facility] Medical Group Cardiology [address] [place] [address] Oz Noble MD 01/17/2025 Home Care Visit [address] [place] [address] Pia Moon, RN SN OASIS TRANSFER W/OUT DC 01/16/2025 Home Care Visit [address] [place] [id number] Pia Moon, RN TELEPHONE ENCOUNTER 01/15/2025 10:00 AM CDT Office Visit [facility] Cardiothoracic Surgery [address] [facility] Medicine 8th Floor [address] Room [address] [place] [phone] Bo Fried MD Mass of left cardiac ventricle 01/15/2025 8:15 AM CDT - 01/15/2025 11:59 PM CDT Hospital Encounter [facility] Cardiac Diagnostic Lab [address] [facility] 8th Floor [place] [phone] Bo Fried MD MSSA bacteremia; Thrombocytopenia Discharge Disposition: Discharge to home or self care 01/14/2025 Telephone [facility] Home Care Services [address] [facility] [address] [place] [address] Ondina Salas [facility] 01/11/2025 Telephone [facility] Home Care Services [address] [facility] [address] [place] [address] Vidhi Martin 01/09/2025 Telephone [facility] Infectious Diseases [address] [facility] [address] [place] [address] Sidney Gould Jr., BRITTANIE 01/08/2025 Telephone [facility] Home Care Services [address] [facility] [address] [place] [address] Vidhi Martin 01/01/2025 2:10 PM CDT - 01/01/2025 11:59 PM CDT Hospital Encounter [facility] [address] [place] [address] Discharge Disposition: Discharge to home or self care 01/01/2025 Telephone [facility] Infectious Diseases [address] [address] [place] [address] Sidney Gould Jr., RN 01/01/2025 2:00 PM CDT Home Care Visit [address] [place] [address] Nayely Pedroza, BRITTANIE SN HOME VISIT 12/31/2024 Telephone [facility] Cardiology [address] [facility] 8th [place] [address] [place] [phone] Nani Melchor, BRAXTON 12/31/2024 Orders Only [facility] Infectious Diseases [address] [address] [place] [phone] Dorothea Stephen, BRAXTON 12/28/2024 11:00 AM CDT Home Care Visit [address] [place] [address] Nayely Pedroza, BRITTANIE SN HOME VISIT 12/27/2024 Telephone [facility] Infectious Diseases [address] [place] [phone] Dorothea Stephen, BRAXTON 12/27/2024 9:13 AM CDT - 12/27/2024 11:59 PM CDT Hospital Encounter [facility] [address] [place], [place] [phone] Discharge Disposition: Discharge to home or self care 12/27/2024 2:00 PM CDT Home Care Visit [address] [place] [address] Thang Solorzano, PT PT DISCIPLINE DISCHARGE 12/27/2024 8:40 AM CDT Office Visit [facility] Infectious Diseases [address] [address] [place] [phone] Dorothea Stephen NP MSSA bacteremia (Primary Dx); Encounter for screening examination for sexually transmitted disease 12/25/2024 Telephone [facility] Primary Care Medicine Clinic [address] [facility] [address] [place] [address] Veronika Ocampo MD 12/21/2024 Orders Only [facility] Cardiology [address] [facility] 8th [place] [address] [place] [phone] Nani Melchor, BRAXTON 12/21/2024 11:30 AM CDT Home Care Visit [address] [place] [address] Nayely Pedroza, RN SN HOME VISIT 12/21/2024 2:00 PM CDT Home Care Visit [address] [place] [address] Thang Solorzano, PT PT HOME VISIT 12/19/2024 Home Care Visit [address] [place] [address] Thang Solorzano, PT CASE COMMUNICATION 12/19/2024 11:00 AM CDT Home Care Visit [address] [place] [address] Thang Solorzano, PT PT HOME VISIT 12/13/2024 10:45 AM CDT Home Care Visit [address] [place] [address] Khushboo Jarvis, PT PT HOME VISIT 12/11/2024 1:00 PM CDT Home Care Visit [address] [place] [address] Nayely Pedroza, BRITTANIE SN HOME VISIT 12/11/2024 2:30 PM CDT Home Care Visit [address] [place] [address] Khushboo Jarvis, PT PT HOME VISIT 12/07/2024 SHOP/CHAP Subsequent Outreach [facility] OP CASE MANAGEMENT [address] [place] [address] Neeta Ott, BRITTANIE 12/06/2024 11:00 AM CDT Home Care Visit [address] [place] [address] Isabelle Campbell, OT OT INITIAL EVALUATION 12/06/2024 12:30 PM CDT Home Care Visit [address] [place] [address] Nayely Pedroza, RN SN HOME VISIT 12/05/2024 SHOP/CHAP Subsequent Outreach [facility] OP CASE MANAGEMENT [address] [place] [address] Neeta Ott RN 12/04/2024 SHOP/CHAP Subsequent Outreach [facility] OP CASE MANAGEMENT [address] [place] [phone] Netea Ott RN 12/04/2024 Home Care Visit [address] [place] [address] Nayely Pedroza, RN CARE CONFERENCE 12/03/2024 Home Care Visit [address] [place] [address] Billy Zarco, RN TELEPHONE ENCOUNTER 12/03/2024 Home Care Visit [address] [place] [address] Thang Solorzano, PT TELEPHONE ENCOUNTER 12/03/2024 10:00 AM CDT Home Care Visit [address] [place] [address] Thang Solorzano, PT PT INITIAL EVALUATION 12/03/2024 1:10 PM CDT Telemedicine [facility] [address] [place] [address] [place] [address] Yamilex Mathew, BRAXTON Torsades de pointes (HCC) (Primary Dx); MSSA bacteremia 12/01/2024 Plan of Care Documentation [address] [place] [address] 12/01/2024 12:00 PM CDT Home Care Visit [address] [place] [address] Billy Zarco, RN SN OASIS START OF CARE 11/30/2024 Orders Only [facility] Cardiothoracic Surgery [address] [facility] 8th Floor [address] [place], [place] [phone] Lee Elena MD Mass of left cardiac ventricle (Primary Dx) 11/29/2024 Telephone [facility] Home Care Services [address] [facility] [address] [place] [phone] Dora Sandra 11/29/2024 Orders Only Internal Medicine Pieter Wynn MD 11/29/2024 SHOP/CHAP Initial Outreach [facility] OP CASE MANAGEMENT [address] [place] [phone] Neeta Ott RN 11/29/2024 SHOP/CHAP Initial Eligibility Review [facility] OP CASE MANAGEMENT [address] [place] [phone] Neeta Ott RN 11/28/2024 Home Care Visit [address] [place] [id number] Hortensia Valentino, BRITTANIE SN TRIAGE ENCOUNTER 11/28/2024 Orders Only [facility] Cardiothoracic Surgery [facility] [facility] 8th Floor [address] [place], [place] [phone] Bo Fried MD MSSA bacteremia (Primary Dx); Thrombocytopenia 10/31/2024 2:44 AM CDT - 11/28/2024 3:29 PM CDT Hospital Encounter [facility] [address] [place] [address] Rahul Ramirez MD Vazquez Guillamet, Maria Cristina, MD Despotovic, MD Kassy Rae Randy Olivier, MD Lee, Lyndon K., MD Torsades de pointes (HCC) (Primary Dx); Cardiac arrest (HCC); Anorexia; Electrolyte abnormality; Acute pain [R52]; Painful respiration [R07.1]; Costochondritis [M94.0]; Idiopathic peripheral neuropathy [G60.9]; MSSA bacteremia Discharge Disposition: Discharge to home or self care from Last 3 Months Allergies Active Allergy [...] for diarrhea 100 mL 5 Active multivit bzfcimti-kewf-R A-calcium (THERA-M) 9 mg iron-400 mcg tabletIndicatio [...] daily until blood thinner is received from 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 Never 11/29/2024 Do you belong to any clubs o r organizations such as orthodox groups, unions, fraternal or athletic groups, or [...] the past [address] [facility], were you homeless or living in a [place] health care facility (including now)? No 11/29/2024 Personal Safety Answer Date Recorded Have you ever been in or are you currently in a harmful physical or emotional relationship or is someone making you feel afraid or unsafe? Denies 10/31/2024 Comments No Sex and Gender Information Value Date Recorded Sex Assigned at Not on file Legal Sex Female 8:06 PM ORDER BUILDER LOADER Gender Identity Not on file Sexual Orientation [...] Date/Time Associated Diagnosis Comments BLOOD MISC TO SALINAS Routine 01/22/2025 12 :40 PM CDT EGFR [...] E6/E7, CHLAMYDIA/N.GONORRHOEA E Routine 09/14/2016 12:56 PM ORDER BUILDER LOADER from Last 3 Months or Most Recently Relevant to Health Maintenance Results * BLOOD MISC TO SALINAS (01/22/2025 12:40 PM CDT) Test name, chem CDTA,CARBOHYD RATE DEFICIENT TRANSFERRIN,A DULT SCRE [facility] Comment:Credited, test not i ndicated. Misc see comment [facility] RAMIREZ Comment:Credited, test not i ndicated. Blood 01/22/2025 12:4 0 PM CDT 01/24/2025 2:14 PM CDT us Notinfile Unknown LAB BLOOD ORDERABLES Final Res ult [facility] BACK [facility] Department [place] [address] [facility] * eGFR (01/22/2025 12:40 PM [...] Final Res ult [facility] [place] [address] * Differential, auto (01/22/2025 12:40 PM CDT) [...] ORDERABLES Final Res ult Performing Organization Address City/[facility]/ZIP Co de Phone Number [facility] Department [place] [address] * (ABNORMAL) Iron profile w/ IBC (01/22/2025 12:40 PM CDT) [facility] Iron 60 35 - 145 mcg/dL TIBC 322 250 - 400 mcg/dL [facility] Transferrin saturation 19(L) 20 - 50 % [facility] Blood 01/22/2025 12:4 0 PM CDT 01/22/2025 3:52 PM CDT us Notinfile Unknown LAB BLOOD ORDERABLES Final Res ult [facility] Department [place] [address] * (ABNORMAL) CBC with auto differential (01/22/2025 12:40 PM CDT) Pathologist [facility] WBC 5.86 [...] Unknown LAB BLOOD ORDERABLES Final Res ult [facility] [place] [address] * Magnesium (01/22/2025 12:40 PM CDT) Magnesium 2.0 1.4 - 2.5 mg/dL Blood 01/22/2025 12:4 0 PM CDT 01/22/2025 3:52 PM CDT us Notinfile Unknown LAB BLOOD ORDERABLES Final Res ult [facility] [place] [address] * Folate (01/22/2025 12:40 PM CDT) Folic acid >20.0 >=5.0 ng/mL Blood 01/22/2025 12:4 0 PM CDT 01/22/2025 3:52 PM CDT us Notinfile Unknown LAB BLOOD ORDERABLES Final Res ult [facility] One [facility] [place] [address] * Vitamin B12 (01/22/2025 12:40 PM CDT) Pathologist [facility] Vitamin B12 815 230 - 1,250 pg/mL Blood 01/22/2025 12:4 0 PM CDT 01/22/2025 3:52 PM CDT us Notinfile Unknown LAB BLOOD ORDERABLES Final Res ult Performing Organization Address [facility] de Phone Number [facility] [place] [address] * (ABNORMAL) Comprehensive metabolic panel (01/22/2025 12:40 PM CDT) Pathologist [facility] Sodium 135 135 - 145 mmol/L Potassium, [...] Alk phos 139(H) 40 - 130 Units/L [facility] ALT 33 7 - 45 Units/L [facility] AST 58(H) 10 - 45 Units/L [facility] Blood 01/22/2025 12:4 0 PM CDT 01/22/2025 3:52 PM CDT us Notinfile Unknown LAB BLOOD ORDERABLES Final Res ult [facility] Department [place] [address] * TRANSTHORACIC ECHO (TTE) COMPLETE W DOPPLER/CF W CONTRAST (01/15/2025 9:57 AM CDT) EF Mod BP 55 % CONS SCIMAGE Anatomical Region Laterality Modality Ultrasound 01/15/2025 8:50 AM CDT Narrative 01/15/2025 11:28 AM CDT [facility] [place] [address] Transthoracic Echocardiographic Report Patient Name: HAYLEY LEÓN L : 1990 (34y 11m) Gender: F Study Date: 01/15/2025 08:50:13 AM Ht(Inch): 61 Wt(Lb): 102.07 BSA: 1.41 Vacuum Kettle Cook: Roza. Watkins [facility] Location: [facility] Order Provider: BO FRIED Heart Rate: [...] Note Italo Hill MD PhD - 01/15/2025 [facility] [place] [address] Transthoracic Echocardiographic Report Patient Name: HAYLEY LEÓN L : 1990 (34y 11m) Gender: F Study Date: 01/15/2025 08:50:13 AM Ht(Inch): 61 Wt(Lb): 102.07 BSA: 1.41 Vacuum Kettle Cook: Roza. Watknis [facility] Location: [facility] Order Provider:BO FRIED Heart Rate: 81 [...] LA Length 2C 3.64 cm MV Decel Wbhh467.25 msec [ 104.00 - 258.00 ] LA [...] Krystyna meyers Result [facility] Department [place] [address] * (ABNORMAL) Basic metabolic panel (01/01/2025 2:10 PM CDT) [facility] Sodium 139 135 - 145 mmol/L [...] PM CDT 01/01/2025 6:04 PM CDT Dorothea Jaramillo'Brien CREDIT RISK MANAGEMENT DIRECTOR LAB BLOOD ORDERABLES Krystyna l Result Performing Organization Address [facility] de Phone Number [facility] [place] [address] * Glucose, random (Outreach) (12/27/2024 9:13 AM [...] CDT 12/27/2024 10:38 AM CDT Dorothea Stephen CREDIT RISK MANAGEMENT DIRECTOR LAB BLOOD ORDERABLES Krystyna l Result Performing Organization Address [facility] de Phone Number [facility] [place] [address] * eGFR (12/27/2024 9:13 AM CDT) eGFR [...] Krystyna meyers Result [facility] Department [place] [address] * Differential, auto (12/27/2024 9:13 AM CDT) Pathologist [facility] Neutrophil abs 3.36 1.50 - 6.50 K/cumm Imm gran abs 0.01 0.00 - 0.10 K/cumm [facility] Lymphocyte abs 1.97 0.80 - 3.30 K/cumm [facility] Monocyte abs 0.37 0.20 - 0.80 K/cumm [facility] Eosinophil abs 0.18 0.00 - 0.50 [...] 12/27/2024 10:37 AM CDT us Dorothea Stephen CREDIT RISK MANAGEMENT DIRECTOR LAB BLOOD ORDERABLES Krystyna meyers Result [facility] [place] [address] * (ABNORMAL) Comprehensive metabolic panel, without glucose [...] 12/27/2024 10:38 AM CDT us Dorothea Stephen CREDIT RISK MANAGEMENT DIRECTOR LAB BLOOD ORDERABLES Krystyna l Result [facility] Department [place] [address] * (ABNORMAL) CBC with auto differential (12/27/2024 9:13 AM CDT) WBC 5.93 3.80 - 9.90 K/cumm Hgb [...] CDT 12/27/2024 10:37 AM CDT Dorothea Stephen CREDIT RISK MANAGEMENT DIRECTOR LAB BLOOD ORDERABLES Krystyna l Result [facility] [place] [address] * Magnesium (12/27/2024 9:13 AM CDT) Magnesium 1.9 1.4 - 2.5 mg/dL Blood 12/27/2024 9:13 AM CDT 12/27/2024 10:50 AM CDT Mo Villatoro MD LAB BLOOD ORDERABLES Final Resul t [facility] Department [place] [address] * Blood culture Blood (12/27/2024 9:05 AM CDT) Report Final Report: No growth Blood 12/27/2024 9:05 AM CDT 12/27/2024 11:47 AM CDT Narrative [facility] - 12/31/2024 12:00 PM CDT Specimen [...] this culture, contact the Microbiology Laboratory at [phone]. Interpretive data was last revised on 24. Dorothea Stephen NP LAB MICROBIOLOGY - GENERA L ORDERABLES Final Result Performing Organization Address [facility]/ZIP Co de Phone Number SH[facility] BACK [facility] Department [place] [address] * Blood culture Blood (12/27/2024 9:05 AM CDT) Report Final Report: No growth Blood 12/27/2024 9:05 AM CDT 12/27/2024 11:47 AM CDT Narrative [facility] - 12/31/2024 12:00 PM CDT Specimen [...] this culture, contact the Microbiology Laboratory at [phone]. Interpretive data was last revised on 24. Dorothea Stephen NP LAB MICROBIOLOGY - GENERA L ORDERABLES Final Result Performing Organization Address [facility]/ZIP Co de Phone Number [facility] Department [place] [address] * (ABNORMAL) Cystatin C (11/28/2024 10:45 AM [...] last revised on 2020. Testing performed by: [facility], [facility], [place]., [address] Blood 11/28/2024 10:4 5 AM CDT 11/28/2024 12:03 PM CDT us Pieter Wynn MD LAB BLOOD ORDERABLES Final Resu lt [facility] Department [place] [address] * eGFR (11/27/2024 9:44 PM CDT) eGFR [...] Krystyna mira Result [facility] Department [place] [address] * (ABNORMAL) Differential, auto (11/27/2024 9:44 PM CDT) Neutrophil abs 2.70 1.50 - 6.50 K/cumm Imm gran abs 0.03 0.00 - 0.10 K/cumm [facility] Lymphocyte abs 2.90 0.80 - 3.30 K/cumm [facility] Monocyte abs 0.50 0.20 - 0.80 K/cumm [facility] Eosinophil abs 0.13 0.00 - 0.50 K/cumm [facility] Basophil abs 0.13(H) 0.00 - 0.10 K/cumm [facility] Neutrophil pct 42.3 % [facility] Comment: Interpretive Data Percent cell count [...] revised on 2017. Lymphocyte pct 45.4 % [facility] Comment: Interpretive Data Percent cell count reference ranges are not reported, since discordance with absolute values may lead to misinterpretation of CBC data. Current Interpretive Data was last revised on 2017. Monocyte pct 7.8 % [facility] Comment: Interpretive Data Percent cell count [...] Krystyna meyers Result [facility] [place] [address] * (ABNORMAL) CBC with auto differential (11/27/2024 [...] ORDERABLES Krystyna l Result Performing Organization Address City/[facility]/ZIP Co de Phone Number [facility] [place] [address] * (ABNORMAL) Vitamin D 25 hydroxy (11/27/2024 9:44 PM CDT) Pathologist [facility] Vitamin D 25-OH 27(L) 30 - 80 ng/mL Blood 11/27/2024 9:44 PM CDT 11/27/2024 10:41 PM CDT Pieter Wynn MD LAB BLOOD ORDERABLES Final Resu lt Performing Organization Address [facility] [place] [address] * Protime-INR (11/27/2024 9:44 PM CDT) Pathologist [facility] PT 10.2 9.7 - 13.0 sec INR [...] ORDERABLES Krystyna l Result Performing Organization Address [facility] [place] [address] * (ABNORMAL) Phosphorus (11/27/2024 9:44 PM CDT) Pathologist [facility] Phosphorus, pl 6.6(H) 2.3 - 4.5 mg/dL Blood 11/27/2024 9:44 PM CDT 11/27/2024 10:41 PM CDT Lee Elena MD LAB BLOOD ORDERABLES Krystyna l Result Performing Organization Address City/[facility] Co de Phone Number [facility] Department [place] [address] * Magnesium (11/27/2024 9:44 PM CDT) Pathologist [facility] Magnesium 1.6 1.4 - 2.5 mg/dL Blood 11/27/2024 9:44 PM CDT 11/27/2024 10:41 PM CDT Lee Elena MD LAB BLOOD ORDERABLES Krystyna l Result Performing Organization Address [facility] de Phone Number [facility] Department [place] [address] * (ABNORMAL) Hepatic function panel (11/27/2024 9:44 PM CDT) Bilirubin, total 0.4 0.1 - [...] ORDERABLES Krystyna l Result Performing Organization Address [facility] Co de Phone Number [facility] Department [place] [address] * (ABNORMAL) Basic metabolic panel (11/27/2024 9:44 PM CDT) [facility] Sodium 139 135 - 145 mmol/L [...] MD LAB BLOOD ORDERABLES Krystyna meyers Result [facility] Department [place] [address] * eGFR (11/26/2024 9:38 PM CDT) [facility] eGFR >90 >=60 mL/min/1. 73 m2 [...] Krystyna meyers Result [facility] [place] [address] * (ABNORMAL) Differential, auto (11/26/2024 9:38 PM [...] Krystyna meyers Result [facility] [place] [address] * (ABNORMAL) CBC with auto differential (11/26/2024 [...] ORDERABLES Krystyna l Result Performing Organization Address [facility] Co de Phone Number [facility] [place] [address] * (ABNORMAL) Protime-INR (11/26/2024 9:38 [...] ORDERABLES Krystyna l Result Performing Organization Address [facility] Co de Phone Number [facility] [place] [address] * (ABNORMAL) Phosphorus (11/26/2024 9:38 PM CDT) Phosphorus, pl 5.7(H) 2.3 - 4.5 mg/dL Blood 11/26/2024 9:38 PM CDT 11/26/2024 10:42 PM CDT Lee Elena MD LAB BLOOD ORDERABLES Krystyna l Result Performing Organization Address City/[facility] Co de Phone Number [facility] [place] [address] * Magnesium (11/26/2024 9:38 PM CDT) Pathologist [facility] Magnesium 2.1 1.4 - 2.5 mg/dL Blood 11/26/2024 9:38 PM CDT 11/26/2024 10:42 PM CDT Lee Elena MD LAB BLOOD ORDERABLES Krystyna l Result Performing Organization Address [facility] de Phone Number [facility] Department [place] [address] * (ABNORMAL) Hepatic function panel (11/26/2024 9:38 [...] ORDERABLES Krystyna l Result Performing Organization Address [facility] Co de Phone Number [facility] Department [place] [address] * (ABNORMAL) Basic metabolic panel (11/26/2024 9:38 PM CDT) Pathologist [facility] Sodium 141 135 - 145 mmol/L Potassium, [...] Krystyna meyers Result [facility] [place] [address] * TRANSTHORACIC ECHO (TTE) LIMITED/FOLLOW UP W LTD DOPPLER/CF W CONTRAST (11/26/2024 1:54 PM CDT) [facility] Estimated EF 55-60 % CONS SCIMAGE Anatomical Region Laterality Modality Ultrasound 11/26/2024 1:05 PM CDT Narrative 11/26/2024 2:37 PM CDT [facility] Card[place] [address] Transthoracic Echocardiographic Report Patient Name: HAYLEY LEÓN L : 1990 (34y 9m) Gender: F Study Date: 11/26/2024 01:05:04 PM Ht(Inch): 61 Wt(Lb): 98.1 BSA: 1.38 Vacuum Kettle Cook: Lise De Anda Location: [id number] Order Provider: PIETER WYNN Heart Rate: 72 [...] Procedure Note Jim Malloy MD - 11/26/2024 [facility] Card[place] [address] Transthoracic Echocardiographic Report Patient Name: HAYLEY LEÓN L : 1990 (34y 9m) Gender: F Study Date: 11/26/2024 01:05:04 PM Ht(Inch): 61 Wt(Lb): 98.1 BSA: 1.38 Vacuum Kettle Cook: Lise De Anda Location: [id number] Order Provider:PIETER WYNN Heart Rate: 72 BMI: [...] 7:38 AM CDT 11/26/2024 7:38 AM CDT Pieter Wynn MD LAB POCT ORDERABLES - DEVICE Fi nal Result Performing Organization Address City/[facility]/ZIP Co ct Phone Number [facility] Department [place] [address] * eGFR (11/25/2024 9:19 PM CDT) eGFR [...] ORDERABLES Krystyna l Result [facility] [place] [address] * Differential, auto (11/25/2024 9:19 PM CDT) Neutrophil abs 1.90 1.50 - 6.50 K/cumm Imm gran abs 0.02 0.00 - 0.10 K/cumm [facility] Lymphocyte abs 2.86 0.80 - 3.30 K/cumm [facility] Monocyte abs 0.53 0.20 - 0.80 K/cumm [facility] Eosinophil abs 0.11 0.00 - 0.50 K/cumm [facility] Basophil abs 0.09 0.00 - 0.10 K/cumm [facility] Neutrophil pct 34.5 % [facility] [...] revised on 2017. Eosinophil pct 2.0 % [facility] Comment: Interpretive Data Percent cell count reference ranges are not reported, since discordance with absolute values may lead to misinterpretation of CBC data. Current Interpretive Data was last revised on 2017. Basophil pct 1.6 % [facility] Comment: Interpretive Data Percent cell count reference ranges are not reported, since discordance with absolute values may lead to misinterpretation of CBC data. Current Interpretive Data was last revised on 2017. Blood 11/25/2024 9:19 PM CDT 11/25/2024 10:49 PM CDT Lee Elena MD LAB BLOOD ORDERABLES Krystyna l Result Performing Organization Address [facility] Co de Phone Number [facility] Department [place] [address] * (ABNORMAL) CBC with auto differential (11/25/2024 [...] ORDERABLES Krystyna meyers Result Performing Organization Address [facility]/ZIP Co de Phone Number [facility] [place] [address] * Protime-INR (11/25/2024 9:19 PM CDT) PT [...] ORDERABLES Krystyna l Result Performing Organization Address [facility] de Phone Number [facility] Department [place] [address] * (ABNORMAL) Phosphorus (11/25/2024 9:19 PM CDT) Pathologist [facility] Phosphorus, pl 5.2(H) 2.3 - 4.5 mg/dL Blood 11/25/2024 9:19 PM CDT 11/25/2024 10:47 PM CDT Lee Elena MD LAB BLOOD ORDERABLES Krystyna l Result Performing Organization Address [facility] de Phone Number [facility] Department [place] [address] * Magnesium (11/25/2024 9:19 PM CDT) [facility] Magnesium 1.6 1.4 - 2.5 mg/dL Blood 11/25/2024 9:19 PM CDT 11/25/2024 10:47 PM CDT Lee Elena MD LAB BLOOD ORDERABLES Krysytna l Result Performing Organization Address [facility] de Phone Number [facility] Department [place] [address] * (ABNORMAL) Hepatic function panel (11/25/2024 9:19 PM CDT) [facility] Bilirubin, total 0.4 0.1 - 1.2 [...] MD LAB BLOOD ORDERABLES Krystyna l Result [facility] Department [place] [address] * (ABNORMAL) Basic metabolic panel (11/25/2024 9:19 PM CDT) [facility] Sodium 143 135 - 145 mmol/L Potassium, [...] ORDERABLES Krystyna l Result Performing Organization Address [facility] de Phone Number [facility] Department [place] [address] * Hepatitis panel, acute Blood (11/03/2024 2:31 PM CDT) Pathologist [facility] Hep A IgM Nonreactive Nonreactive Hep B core IgM Nonreactive Nonreactive [facility] Hep C Ab Nonreactive Nonreactive [facility] Comment:Antibodies to HCV no t detected. Does NOT exclude the possibility of recent exposure to HCV. Current interpretive data was last revised on 22 HepBsAg Nonreactive Nonreactive [facility] Blood 11/03/2024 2:31 PM CDT 11/03/2024 2:38 PM CDT us Mar George MD LAB MICROBIOLOGY - GENERAL ORDERABLES Final Result Performing Organization Address [facility] de Phone Number [facility] [place] [address] * THINPREP TIS PAP REFLEX HPV mRNA E6/E7, CHLAMYDIA/N.GONORRHOEAE (09/14/2016 12:56 PM ORDER BUILDER LOADER) CLINICAL INFORMATION [facility] HISTORICAL RESULTS Comment: LMP: [facility] HISTORICAL RESULTS PREV. PAP: [facility]ISTORICAL RESULTS Comment:2011 PREV. BX: [facility]IST[facility]ULTS Comment:UNKNOWN SOURCE: [facility] HISTORICAL RESULTS Comment:Cervix, Endocervix STATEMENT OF ADEQUACY: [facility]IST[facility]ICAL RESULTS Comment:Satisfactory for savana luation. Endocervical/transformation zone component present. INTERPRETATION/RES ULT: [facility] HISTORICAL RESULTS Comment:Negative for intraep ithelial lesion or malignancy. COMMENT: [facility]ISTORICAL RESULTS Comment:This Pap test has be en evaluated with computer assisted technology. REPORTS ANALYST: [facility] HISTORICAL RESULTS Comment:YQ, CT(ASCP) CT scre ening location: [place] [address] [place] [address] C. trachomatis RNA NOT DETECTED NOT DETECTED [facility] HISTORICAL RESULTS N. gonorrhoeae RNA NOT DETECTED NOT DETECTED [facility] HISTORICAL RESULTS COMMENT [facility] HISTORICAL RESULTS Comment: This test was performed using the APTIMA COMBO2 Assay ([employer] The analytical performance characteristics of this assay, when used to test SurePath specimens have been determined by [employer]. 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
--- OUTSIDE RECORDS SUMMARY | 2025-02-25 18:19 | XMS_ITS | Patient Health Record ---
Author Organization [facility] Address [address] [place] [address] Care Team Providers Care Hog Ringer Name Role Phone Mo Mitchell Primary Care Provider Aj Larry Unavailable [phone] Marilu Mora Unavailable [phone] Allergies Allergen (clinical drug ingredient) Drug/Non Drug [...] Unsteady gait (R26.8 1) Referral Organization [facility] Referring Provider First Name Mo Referring Provider Last Name Paula Referring Provider Speciality Internal M edicine Referred Provider Specialty Physical The rapist General Notes BRITTANIE Patton, Tory Manzano 05/11/2024 09:02:12 AM > Referral to [facility] PT. letter to pt., Giovanna Hoyos 01/17/2025 02:50:03 PM >Talked with client who reported that this referral was not completed b/c client had gotten better & it was no longer needed. Closing referral. Clinical Notes [facility] Physical Therap y, [address], [facility] [address], , Referral Priority Routine Medications Medication SIG [...] Once a day Active Ergocalciferol 1.25 MG (20714 UT) 1 capsule Orally Active Cefadroxil 500 [...] W/U Status Risk Notes Problem Tobacco user (809292627) Nicotine dependence, unspecified, uncomplicated (F17.200) Active confirmed Problem Eating disorder (77207026) Eating disorder, unspecified (F50.9) Active confirmed Problem Prolonged QT interval (902195109) Prolonged QT interval (I45.81) Active confirmed Problem Peripheral neuropathy (745138630) Peripheral neuropathy (G62.9) Active confirmed Problem Chronic pain (75601795) Chronic pain (G89.29) Active confirmed Problem Unsteady gait (96707069) Unsteady gait (R26.81) Active confirmed Problem Deficiency of macronutrients (disorder) (486948389) Protein-calorie malnutrition, unspecified severity (E46) Active confirmed [...] 12/05/2024 Encounters Encounter Location Date Provider Diagnosis [address] [place] [address] 03/20/2024 Mo Mitchell Peripheral neuropath y G62.9 ; Eating disorder, unspecified F50.9 ; Unsteady gait R26.81 ; Protein-calorie malnutrition, unspecified severity E46 and Periodontal disease K05.[address] [place] [address] 03/20/2024 Marilu Mora [address] [place] [address] 10/01/2024 Mo Mitchell Protein-calorie malnutrition, unspecified severity E46 ; Peripheral neuropathy G62.9 ; Eating disorder, unspecified F50.9 and Nicotine dependence, unspecified, uncomplicated F17.[address] [place] [address] 12/05/2024 Mo Mitchell Torsades de pointes I47.21 ; Prolonged QT interval I45.81 ; Chronic pain G89.29 ; Alcohol related disorder F10.99 ; Peripheral neuropathy G62.9 ; Protein-calorie malnutrition, unspecified severity E46 ; Unsteady gait R26.81 and Opioid use F11.90 [facility] [address] [place] [address] 11/23/2024 Mo Mitchell [facility] [place] [address] 12/03/2024 Mo Mitchell [facility] [address] [place] [address] 12/03/2024 Mo Mitchell [address] [place] [address] 12/05/2024 Mo Mitchell [address] [place] [address] 12/19/2024 Mo Mitchell [facility] [address] [place] [address] 12/28/2024 Mo Mitchell [facility] [address] [place] [address] 01/02/2025 Mo Mitchell Hypokalemia E87.6 ; Alcohol related disorder F10.99 and Fatigue R53.83 [facility] [address] [place] [address] 01/08/2025 Mo Mitchell [facility] [place] [address] 01/10/2025 Mo Mitchell [facility] [address] [facility] [place] [address] 01/16/2025 Mo Mitchell [facility] [address] [place] [address] 01/18/2025 Mo Mitchell [facility] [place] [address] 02/01/2025 Mo Mitchell [place] [address] [place] [address] 02/13/2025 Mo Mitchell [place] [address] [place] [address] 02/22/2025 Mo Mitchell [address] [place] [address] 02/29/2024 Aj Larry Peripheral neuropath y G62.[address] [place] [address] 03/01/2024 Mo Mitchell [address] [place] [address] 03/19/2024 Mo Mitchell [address] [place] [address] 04/20/2024 Mo Mitchell [address] [place] [address] 06/13/2024 Mo Mitchell [address] [place] [address] 06/14/2024 Mo Mitchell Eating disorder, unspecified F50.[address] [address] 06/18/2024 Mo Mitchell [address] [address] 06/27/2024 Mo Mitchell [address] [address] 07/27/2024 Mo Mitchell [address] [address] 07/30/2024 Mo Mitchell [address] [address] 09/25/2024 Mo Mitchell [address] [address] 10/15/2024 Mo Mitchell Eating disorder, unspecified F50.9 and Peripheral neuropathy G62.[address] [address] 01/23/2025 Mo Mitchell Assessments Encounter Date Diagnosis [...] interval (ICD-10 - I45.81) F/U WITH CARDIOLOGY. 02/29/2024 Peripheral neuropathy (ICD-10 - G62.9) 03/20/2024 Eating disorder, unspecified (ICD-10 - F50.9) 03/20/2024 Peripheral neuropathy (ICD-10 - G62.9) 06/14/2024 Eating disorder, unspecified (ICD-10 - F50.9) 03/20/2024 Unsteady gait (ICD-10 - R26.81) 12/05/2024 [...] Insured Coverage Start Date Coverage End Date [address] [phone] [id number] Ester León Self - patient is the insured Medical (General) History Surgical History Surgery Date(Month/Year) peg tube 10/2023 child 2016 Hospitalization History Reason Date(Month/Year) [facility] 02/04/17 [facility] Cardiac arrest 10/2024 [facility]. infection 07/2024
--- OUTSIDE RECORDS SUMMARY | 2025-02-25 18:19 | XMS_ITS | Encounter Summary ---
Author Organization [facility] Address [address] [place] [address] Phone Care Team Providers Care College Administrator Name Role Phone Mo Mitchell MD Primary Care Provider [phone] Reason for Visit * Reason Onset Date Comments Scheduling Appointments 02/01/2025 Encounter Details Date Type Department Care Team (Late st Contact Info) Description 02/01/2025 Telephone [facility] Cardiology [address] [facility] [address] [place] [address] [place] [address] Scheduling Appointments [...] materials from doctor or pharmacy Sometimes 01/18/2025 [facility] Utilities Answer Date Recorded In the [...] often do you attend chur ch or christianity services? Never 11/29/2024 Do you belong to any clubs o r organizations such as holiness groups, unions, fraternal or athletic groups, or [...] were you homeless or living in a snf (including now)? No 11/29/2024 Personal Safety Answer Date Recorded Have you ever been in or are you currently in a harmful physical or emotional relationship or is someone making you feel afraid or unsafe? 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 Patient declined and asked for a . [...] documented as of this encounter Care Teams College Administrator Relationship Specialty Start Date End Date Mo Mitchell MD [address] [facility] [place] [address] PCP - General Internal Medicine 10/31/24 documented as of this encounter
--- OUTSIDE RECORDS SUMMARY | 2025-02-25 18:19 | XMS_ITS | Encounter Summary ---
Author Organization [facility] Care Team Providers Care Halal Butcher Name Role Phone Christian Merritt MD Primary Care Provider [phone] Mo Mitchell MD Primary Care Provider [phone] Neeta Ott RN Unavailable [phone] Encounter Details Date Type Department Care Team (Latest Contact Info) Description 01/05/2017 Orders Only [facility]INCONV Provider, MD Serge [address] [place] [address] Social History Tobacco Use Types Packs/Day Years Used Date Smoking Tobacco: Never Assessed Comments Unknown Sex and Gender Information Value Date Recorded Sex Assigned at Not on file Legal Sex Female 8:06 PM OFFICE SUPPORT CLERK Gender Identity Not on file Sexual [...] documented as of this encounter Care Teams Halal Butcher Relationship Specialty Start Date End Date Christian Merritt MD PCP - General Emergency Medicine 06/10/22 10/30/24 Mo Mitchell MD [address] [place] [address] PCP - General Internal Medicine 10/31/24 Neeta Ott, RN [address] [address] [facility] Cle[facility] Hand 11/29/24 12/06/24 documented as of this encounter
--- NOTE | 2025-02-25 19:23 | ECG_ITS ---
Test Date: 2025-02-25 19:25:54 Measurements Intervals Stanley Rate: 110 P: 95 NJ: 88 QRS: 68 QRSD: 86 T: -88 QT: 385 QTc: 521 Interpretive Statements SINUS TACHYCARDIA WITH SHORT NJ INTERVAL DELAYED PRECORDIAL R/S TRANSITION ST-T WAVE ABNORMALITY IN ANTEROLAT/INF LEADS- CONSIDER ISCHEMIA BASELINE ARTIFACT- I, II, III, AVR, AVL, AVF, V1-V6 ABNORMAL ECG Compared to ECG 02/13/2025 15:26:57 HEART RATE HAS INCREASED POSSIBLE ISCHEMIA NOW PRESENT Electronically Signed On 02-25-2025 19:43:36 CDT by Jayme Mcneal D.O.
--- NOTE | 2025-02-25 20:24 | PC.NURSE ---
Pt presents to ED c/o 8/10 abdominal pain, n/v and diarrhea x1 day with occasional 5/10 chest pain, intermitten radiating to L/R side. Pt states she wears a life vest because she went into cardiac arrest October 2024.
--- NOTE | 2025-02-25 21:19 | PC.NURSE ---
Pt ambulatory to bathroom with walker for urine sample.
[2025-02-25 21:33] LABS: BEDSIDEPREGUCG Negative (Negative)
[2025-02-25 21:41] LABS: Glucose Urine UA Negative (Negative); Leukocyte Esterase Ur 1+ LEU/UL (Negative); Nitrate Urine Positive (Negative); Specific Grav Ur 1.026 (1.001-1.035)
--- OUTSIDE RECORDS SUMMARY | 2025-02-25 21:41 | XMS_ITS | Referral Summary ---
Author Organization 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 Cardiothoracic Surgery [address] [facility] Medicine 8th Floor [phone] [place] [address] Bo Fried MD Mass of left cardiac ventricle (Primary Dx) 02/15/2025 Telephone [facility] Home Care Services [address] [place] [address] Unknown, Notinfile 02/14/2025 Telephone [facility] Home Care Services [address] [place] [address] , summer02/13/[address] [facility] Cardiothoracic Surgery [address] [facility] 8th Floor [address] [address] [place] [phone] Bo Fried MD Mass of left cardiac ventricle (Primary Dx) 02/12/2025 2:30 PM CDT Home Care Visit [address] [place] [address] Nayely Pedroza, BRITTANIE SN HOME VISIT 02/07/[address] [facility] Infectious Diseases [address] [facility] [address] [place] [address] Rosangela Simental, WEB MARKETING ANALYST 02/07/2025 9:00 AM CDT Home Care Visit [address] [place] [address] Pia Swan RN SN HOME VISIT 02/07/2025 10:00 AM CDT Home Care Visit [address] [place] [address] Isabelle Campbell, OT OT INITIAL EVALUATION 02/06/2025 2:00 PM CDT Home Care Visit [address] [place] [address] Thang Solorzano, PT PT INITIAL EVALUATION 02/05/2025 Home Care Visit [address] [place] [address] Pia Moon, RN TELEPHONE ENCOUNTER 02/01/[address] [facility] Cardiology [address] [facility] 8th [place] [address] [place] [address] Scheduling Appointments 01/31/2025 Plan of Care Documentation [address] [place] [address] 01/31/2025 2:00 PM CDT Home Care Visit [address] [place] [address] Nayely Pedroza, BRITTANIE SN OASIS RECERTIFICATION 01/29/2025 Home Care Visit [address] [place] [address] Nayely Pedroza, RN TELEPHONE ENCOUNTER 01/28/2025 Home Care Visit [address] [place] [address] Nayely Pedroza, BRITTANIE TELEPHONE ENCOUNTER 01/24/2025 9:40 AM CDT Office Visit [facility] Infectious Diseases [address] [facility] [address] [place] [address] Dorothea Stephen NP MSSA bacteremia (Primary Dx) 01/22/2025 12:40 PM CDT - 01/22/2025 11:59 PM CDT Hospital Encounter [facility] [address] [place] [address] Discharge Disposition: Discharge to home or self care 01/22/2025 12:00 PM CDT Home Care Visit [address] [place] [address] Nayely Pedroza, BRITTANIE SN HOME VISIT 01/18/2025 Plan of Care Documentation [address] [place] [address] 01/18/2025 10:30 AM CDT Home Care Visit [address] [place] [address] Billy Zarco RN SN OASIS RESUMPTION OF CARE 01/17/2025 Orders Only [facility] Medical Group Cardiology [address] [place] [address] Oz Noble MD 01/17/2025 Home Care Visit [address] [place] [address] Pia Moon, RN SN OASIS TRANSFER W/OUT DC 01/16/2025 Home Care Visit [address] [place] [id number] Pia Moon, RN TELEPHONE ENCOUNTER 01/15/2025 10:00 AM CDT Office Visit [facility] Cardiothoracic Surgery [address] [facility] Medicine 8th Floor [address] Room [address] [place] [phone] Bo Freid MD Mass of left cardiac ventricle 01/15/2025 8:15 AM CDT - 01/15/2025 11:59 PM CDT Hospital Encounter [facility] Cardiac Diagnostic Lab [address] [facility] 8th Floor [place] [phone] Bo Fried MD MSSA bacteremia; Thrombocytopenia Discharge Disposition: Discharge to home or self care 01/14/2025 Telephone [facility] Home Care Services [address] [place] [address] Ondina Salas On License Of [facility] 01/11/2025 Telephone [facility] Home Care Services [address] [place] [address] Vidhi Martin 01/09/[address] [facility] Infectious Diseases [address] [facility] [address] [place] [address] Sidney Gould Jr., BRITTANIE 01/08/2025 Telephone [facility] Home Care Services [address] [place] [address] Vidhi Martin 01/01/2025 2:10 PM CDT - 01/01/2025 11:59 PM CDT Hospital Encounter [facility] [address] [place] [address] Discharge Disposition: Discharge to home or self care 01/01/[address] [facility] Infectious Diseases [address] [facility] [address] [place] [address] Sidney Gould Jr., RN 01/01/2025 2:00 PM CDT Home Care Visit [address] [place] [address] Nayely Pedroza, BRITTANIE SN HOME VISIT 12/31/[address] [facility] Cardiology [address] [facility] 8th [place] [address] [place] [phone] Nani Melchor, BRAXTON 12/31/[address] [facility] Infectious Diseases [address] [facility] [address] [place] [phone] Dorothea Stephen, BRAXTON 12/28/2024 11:00 AM CDT Home Care Visit [address] [place] [address] Nayely Pedroza, BRITTANIE SN HOME VISIT 12/27/[address] [facility] Infectious Diseases [address] [place] [phone] Dorothea Stephen, BRAXTON 12/27/2024 9:13 AM CDT - 12/27/2024 11:59 PM CDT Hospital Encounter [facility] [address] [place], [place] [id number] Discharge Disposition: Discharge to home or self care 12/27/2024 2:00 PM CDT Home Care Visit [address] [place] [address] Thang Solorzano, PT PT DISCIPLINE DISCHARGE 12/27/2024 8:40 AM CDT Office Visit [facility] Infectious Diseases [address] [facility] [address] [place] [phone] Dorothea Stephen NP MSSA bacteremia (Primary Dx); Encounter for screening examination for sexually transmitted disease 12/25/[address] [facility] Medicine Clinic [address] [facility] [address] [place] [address] Veronika Ocampo MD 12/21/[address] [facility] Cardiology [address] [facility] 8th [place] [address] [place] [phone] Nani Melchor, BRAXTON 12/21/2024 11:30 AM CDT Home Care Visit [address] [place] [address] Nayely Pedroza, RN SN HOME VISIT 12/21/2024 2:00 PM CDT Home Care Visit [address] [place] [address] Thang Solorzano, PT PT HOME VISIT 12/19/2024 Home Care Visit [address] [place] [address] Thang Solorzano, PT CASE COMMUNICATION 12/19/2024 11:00 AM CDT Home Care Visit [address] [place] [address] Thang Solorzano, PT PT HOME VISIT 12/13/2024 10:45 AM CDT Home Care Visit [address] [place] [address] Khushboo Jarvis, PT PT HOME VISIT 12/11/2024 1:00 PM CDT Home Care Visit [address] [place] [address] Nayely Pedroza, BRITTANIE SN HOME VISIT 12/11/2024 2:30 PM CDT Home Care Visit [address] [place] [address] Khushboo Jarvis, PT PT HOME VISIT 12/07/2024 SHOP/CHAP Subsequent Outreach [facility] OP CASE MANAGEMENT [address] [place] [address] Neeta Ott, BRITTANIE 12/06/2024 11:00 AM CDT Home Care Visit [address] [place] [address] Isabelle Campbell, OT OT INITIAL EVALUATION 12/06/2024 12:30 PM CDT Home Care Visit [address] [place] [address] Nayely Pedroza, RN SN HOME VISIT 12/05/2024 SHOP/CHAP Subsequent Outreach [facility] OP CASE MANAGEMENT [address] [place] [address] Neeta Ott RN 12/04/2024 SHOP/CHAP Subsequent Outreach [facility] OP CASE MANAGEMENT [address] [place] [phone] Neeta Ott RN 12/04/2024 Home Care Visit [address] [place] [address] Nayely Pedroza, RN CARE CONFERENCE 12/03/2024 Home Care Visit [address] [place] [address] Billy Zarco, RN TELEPHONE ENCOUNTER 12/03/2024 Home Care Visit [address] [place] [address] Thang Solorzano, PT TELEPHONE ENCOUNTER 12/03/2024 10:00 AM CDT Home Care Visit [address] [place] [address] Thang Solorzano, PT PT INITIAL EVALUATION 12/03/2024 1:10 PM CDT Telemedicine [facility] [address] [place] [address] [place] [address] Yamilex Mathew, BRAXTON Torsades de pointes (HCC) (Primary Dx); MSSA bacteremia 12/01/2024 Plan of Care Documentation [address] [place] [address] 12/01/2024 12:00 PM CDT Home Care Visit [address] [place] [address] Billy Zarco, RN SN OASIS START OF CARE 11/30/[address] [facility] Cardiothoracic Surgery [address] [facility] 8th Floor [address] [place] [phone] Lee Elena MD Mass of left cardiac ventricle (Primary Dx) 11/29/2024 Telephone [facility] Home Care Services [address] [place] [phone] Dora Sandra 11/29/2024 Orders Only Internal Medicine Pieter Wynn MD 11/29/2024 SHOP/CHAP Initial Outreach [facility] OP CASE MANAGEMENT 1 [place] [phone] Neeta Ott RN 11/29/2024 SHOP/CHAP Initial Eligibility Review [facility] OP CASE MANAGEMENT 1 [place] [phone] Neeta Ott RN 11/28/2024 Home Care Visit [address] [place] [id number] Hortensia Valentino, BRITTANIE SN TRIAGE ENCOUNTER 11/28/[address] [facility] Cardiothoracic Surgery Pending sale to [facility] 8th Floor [address] [place], [place] [phone] Bo Fried MD MSSA bacteremia (Primary Dx); Thrombocytopenia 10/31/2024 2:44 AM CDT - 11/28/2024 3:29 PM CDT Hospital Encounter [facility] 1 [place] [address] Rahul Ramirez MD Vazquez Guillamet, Maria Cristina, [...] for diarrhea 100 mL 5 Active multivit cvflpwbb-mnye-T A-calcium (THERA-M) 9 mg iron-400 mcg tabletIndicatio [...] daily until blood thinner is received from manager rail office Indications: treatment to prevent a heart [...] In the past 12 months has e [employer], gas, oil, or water company threatened to [...] often do you attend chur ch or jewish services? Never 11/29/2024 Do you belong to any clubs o r organizations such as scientologist groups, unions, fraternal or athletic groups, or [...] in the past 12 m [facility], were you homeless or living in a mcfp (including now)? No 11/29/2024 Personal Safety Answer Date Recorded Have you ever been in or are you currently in a harmful physical or emotional relationship or is someone making you feel afraid or unsafe? Denies 10/31/2024 Comments No Sex and Gender Information Value Date Recorded Sex Assigned at Not on file Legal Sex Female 8:06 PM KINDERGARTEN INSTRUCTIONAL ASSISTANT Gender Identity Not on file Sexual [...] Date/Time Associated Diagnosis Comments BLOOD MISC TO [place] Routine 01/22/2025 12 :40 PM CDT EGFR [...] E6/E7, CHLAMYDIA/N.GONORRHOEA E Routine 09/14/2016 12:56 PM KINDERGARTEN INSTRUCTIONAL ASSISTANT from Last 3 Months or Most Recently Relevant to Health Maintenance Results * BLOOD MISC TO [place] (01/22/2025 12:40 PM CDT) Test name, chem CDTA,CARBOHYD RATE DEFICIENT TRANSFERRIN,A DULT SCRE [facility] ref [facility] Comment:Credited, test not i ndicated. Misc see comment SHONA RAMIREZ Comment:Credited, test not i ndicated. Blood 01/22/2025 12:4 0 PM CDT 01/24/2025 2:14 PM CDT us Notinfile Unknown LAB BLOOD ORDERABLES Final Res ult SHONA BACK [facility] Department [place] [address] [facility] ref Lab * eGFR (01/22/2025 12:40 PM [...] Unknown LAB BLOOD ORDERABLES Final Res ult [facility] Department [place] [address] * Differential, auto (01/22/2025 12:40 PM CDT) Neutrophil abs 2.80 1.50 - 6.50 K/cumm Imm gran abs 0.00 0.00 - 0.10 K/cumm [facility] Lymphocyte abs 2.66 0.80 - 3.30 K/cumm [facility] Monocyte abs 0.21 0.20 - 0.80 K/cumm [facility] Eosinophil abs 0.14 0.00 - 0.50 K/cumm [facility] Basophil abs 0.05 0.00 - 0.10 K/cumm [facility] Neutrophil pct 47.7 % [facility] Comment: Interpretive Data Percent cell count reference ranges are not reported, since discordance with absolute values may lead to misinterpretation of CBC data. Current Interpretive Data was last revised on 2017. Imm gran pct 0.0 % [facility] Comment: Interpretive Data Percent cell count reference ranges are not reported, since discordance with absolute values may lead to misinterpretation of CBC data. Current Interpretive Data was last revised on 2017. Lymphocyte pct 45.4 % [facility] Comment: Interpretive Data Percent cell count reference ranges are not reported, since discordance with absolute values may lead to misinterpretation of CBC data. Current Interpretive Data was last revised on 2017. Monocyte pct 3.6 % [facility] Comment: Interpretive Data Percent cell count reference ranges are not reported, since discordance with absolute values may lead to misinterpretation of CBC data. Current Interpretive Data was last revised on 2017. Eosinophil pct 2.4 % [facility] Comment: Interpretive Data Percent cell count reference ranges are not reported, since discordance with absolute values may lead to misinterpretation of CBC data. Current Interpretive Data was last revised on 2017. Basophil pct 0.9 % [facility] Comment: Interpretive Data Percent cell count reference ranges are not reported, since discordance with absolute values may lead to misinterpretation of CBC data. Current Interpretive Data was last revised on 2017. Blood 01/22/2025 12:4 0 PM CDT 01/22/2025 3:52 PM CDT us Notinfile Unknown LAB BLOOD ORDERABLES Final Res ult Performing Organization Address City/[facility]/ZIP Co de Phone Number [facility] Department [place] [address] * (ABNORMAL) Iron profile w/ IBC (01/22/2025 12:40 PM CDT) [facility] Iron 60 35 - 145 mcg/dL TIBC 322 250 - 400 mcg/dL [facility] Transferrin saturation 19(L) 20 - 50 % [facility] Blood 01/22/2025 12:4 0 PM CDT 01/22/2025 3:52 PM CDT us Notinfile Unknown LAB BLOOD ORDERABLES Final Res ult [facility] Department [place] [address] * (ABNORMAL) CBC with auto differential (01/22/2025 12:40 PM CDT) Pathologist [facility] WBC 5.86 3.80 - 9.90 K/cumm Hgb 12.9 11.9 - 15.5 g/dL [facility] Hct 39.0 35.6 - 45.5 % [facility] Plt 170 150 - 400 K/cumm [facility] MPV 11.0 9.1 - 12.3 fL [facility] RBC 4.01 3.90 - 5.20 M/cumm [facility] MCV 97.3(H) 81.3 - 96.4 fL [facility] MCH 32.2 27.1 - 33.3 pg [facility] MCHC 33.1 32.3 - 35.7 g/dL [facility] RDW CV 13.4 11.1 - 14.9 % [facility] RDW SD 47.5 35.7 - 48.1 fL [facility] NRBC abs 0.00 0.00 - 0.01 K/cumm [facility] Blood 01/22/2025 12:4 0 PM CDT 01/22/2025 3:52 PM CDT us Notinfile Unknown LAB BLOOD ORDERABLES Final Res ult [facility] [place] [address] * Magnesium (01/22/2025 12:40 PM CDT) Magnesium 2.0 1.4 - 2.5 mg/dL Blood 01/22/2025 12:4 0 PM CDT 01/22/2025 3:52 PM CDT us Notinfile Unknown LAB BLOOD ORDERABLES Final Res ult [facility] [place] [address] * Folate (01/22/2025 12:40 PM CDT) Folic acid >20.0 >=5.0 ng/mL Blood 01/22/2025 12:4 0 PM CDT 01/22/2025 3:52 PM CDT us Notinfile Unknown LAB BLOOD ORDERABLES Final Res ult [facility] One [facility] [place] [address] * Vitamin B12 (01/22/2025 12:40 PM CDT) Pathologist [facility] Vitamin B12 815 230 - 1,250 pg/mL Blood 01/22/2025 12:4 0 PM CDT 01/22/2025 3:52 PM CDT us Notinfile Unknown LAB BLOOD ORDERABLES Final Res ult Performing Organization Address [facility] de Phone Number [facility] [place] [address] * (ABNORMAL) Comprehensive metabolic panel (01/22/2025 12:40 PM CDT) Pathologist [facility] Sodium 135 135 - 145 mmol/L Potassium, pl 3.4 3.3 - 4.9 mmol/L [facility] Chloride 98 97 - 110 mmol/L [facility] CO2 23 22 - 32 mmol/L [facility] Anion gap 14 2 - 15 mmol/L [facility] BUN 9 6 - 25 mg/dL [facility] Creatinine 0.63 0.60 - 1.10 mg/dL [facility] Glucose 85 70 - 199 mg/dL [facility] Comment: Interpretive Data Fasting glucose >/= [...] 2022. Calcium 10.1 8.5 - 10.3 mg/dL [facility] Bilirubin, total 0.4 0.1 - 1.2 mg/dL [facility] Protein, pl 7.5 6.5 - 8.5 g/dL [facility] Albumin 4.1 3.5 - 5.0 g/dL [facility] Alk phos 139(H) 40 - 130 Units/L [facility] ALT 33 7 - 45 Units/L [facility] AST 58(H) 10 - 45 Units/L [facility] Blood 01/22/2025 12:4 0 PM CDT 01/22/2025 3:52 PM CDT us Notinfile Unknown LAB BLOOD ORDERABLES Final Res ult [facility] Department [place] [address] * TRANSTHORACIC ECHO (TTE) COMPLETE W DOPPLER/CF W CONTRAST (01/15/2025 9:57 AM CDT) EF Mod BP 55 % CONS SCIMAGE Anatomical Region Laterality Modality Ultrasound 01/15/2025 8:50 AM CDT Narrative 01/15/2025 11:28 AM CDT [facility] [place] [place] [address] Transthoracic Echocardiographic Report Patient Name: HAYLEY LEÓN L : 1990 (34y 11m) Gender: F Study Date: 01/15/2025 08:50:13 AM Ht(Inch): 61 Wt(Lb): 102.07 BSA: 1.41 Butcher Head: Roza. Watkins [facility] Location: [facility] Order Provider: BO FRIED Heart [...] Note Italo Hill MD PhD - 01/15/2025 [facility] [place] [place] [address] Transthoracic Echocardiographic Report Patient Name: HAYLEY LEÓN L : 1990 (34y 11m) Gender: F Study Date: 01/15/2025 08:50:13 AM Ht(Inch): 61 Wt(Lb): 102.07 BSA: 1.41 Butcher Head: Roza. Watkins [facility] Location: [facility] Order Provider:BO FRIED Heart Rate: [...] LA Length 2C 3.64 cm MV Decel Ktyf479.25 msec [ 104.00 - 258.00 ] LA [...] LAB BLOOD ORDERABLES Krystyna meyers Result [facility] Department [place] [address] * (ABNORMAL) Basic metabolic panel (01/01/2025 2:10 PM CDT) [facility] Sodium 139 135 - 145 mmol/L Potassium, pl 2.9(L) 3.3 - 4.9 mmol/L [facility] Chloride 98 97 - 110 mmol/L [facility] CO2 26 22 - 32 mmol/L [facility] Anion gap 15 2 - 15 mmol/L [facility] BUN 11 6 - 25 mg/dL [facility] Creatinine 0.63 0.60 - 1.10 mg/dL [facility] Glucose 91 70 - 199 mg/dL [facility] Comment: Interpretive Data Fasting glucose >/= [...] Calcium 9.2 8.5 - 10.3 mg/dL [facility] Blood 01/01/2025 2:10 PM CDT 01/01/2025 6:04 PM CDT Dorothea Jaramillo'Brien ASSISTANT TEACHER LAB BLOOD ORDERABLES Krystyna l Result Performing Organization Address [facility] de Phone Number [facility] [place] [address] * Glucose, random (Outreach) (12/27/2024 9:13 AM [...] CDT 12/27/2024 10:38 AM CDT Dorothea Stephen ASSISTANT TEACHER LAB BLOOD ORDERABLES Krystyna l Result Performing Organization Address [facility] de Phone Number [facility] [place] [address] * eGFR (12/27/2024 9:13 AM CDT) eGFR [...] LAB BLOOD ORDERABLES Krystyna meyers Result [facility] Department [place] [address] * Differential, auto (12/27/2024 9:13 AM CDT) Pathologist [facility] Neutrophil abs 3.36 1.50 - 6.50 K/cumm Imm gran abs 0.01 0.00 - 0.10 K/cumm [facility] Lymphocyte abs 1.97 0.80 - 3.30 K/cumm [facility] Monocyte abs 0.37 0.20 - 0.80 K/cumm [facility] Eosinophil abs 0.18 0.00 - 0.50 K/cumm [facility] Basophil abs 0.04 0.00 - 0.10 K/cumm [facility] Neutrophil pct 56.7 % [facility] Comment: Interpretive Data Percent cell count reference ranges are not reported, since discordance with absolute values may lead to misinterpretation of CBC data. Current Interpretive Data was last revised on 2017. Imm gran pct 0.2 % [facility] Comment: Interpretive Data Percent cell count reference ranges are not reported, since discordance with absolute values may lead to misinterpretation of CBC data. Current Interpretive Data was last revised on 2017. Lymphocyte pct 33.2 % [facility] Comment: Interpretive Data Percent cell count reference ranges are not reported, since discordance with absolute values may lead to misinterpretation of CBC data. Current Interpretive Data was last revised on 2017. Monocyte pct 6.2 % [facility] Comment: Interpretive Data Percent cell count reference ranges are not reported, since discordance with absolute values may lead to misinterpretation of CBC data. Current Interpretive Data was last revised on 2017. Eosinophil pct 3.0 % [facility] Comment: Interpretive Data Percent cell count reference ranges are not reported, since discordance with absolute values may lead to misinterpretation of CBC data. Current Interpretive Data was last revised on 2017. Basophil pct 0.7 % [facility] Comment: Interpretive Data Percent cell count reference ranges are not reported, since discordance with absolute values may lead to misinterpretation of CBC data. Current Interpretive Data was last revised on 2017. Blood 12/27/2024 9:13 AM CDT 12/27/2024 10:37 AM CDT us Dorothea Stephen ASSISTANT TEACHER LAB BLOOD ORDERABLES Krystyna meyers Result [facility] Department [place] [address] * (ABNORMAL) Comprehensive metabolic panel, without glucose (Outreach) (12/27/2024 9:13 AM CDT) Sodium 136 135 - 145 mmol/L Potassium, pl 2.9(L) 3.3 - 4.9 mmol/L [facility] Chloride 98 97 - 110 mmol/L [facility] [facility] CO2 24 22 - 32 mmol/L [facility] Anion gap 14 2 - 15 mmol/L [facility] BUN 9 6 - 25 mg/dL [facility] Creatinine 0.64 0.60 - 1.10 mg/dL [facility] Calcium 9.7 8.5 - 10.3 mg/dL [facility] Protein, pl 8.2 6.5 - 8.5 g/dL [facility] Albumin 4.2 3.5 - 5.0 g/dL [facility] Bilirubin, total 0.7 0.1 - 1.2 mg/dL [facility] Alk phos 175(H) 40 - 130 Units/L [facility] AST 51(H) 10 - 45 Units/L [facility] ALT 25 7 - 45 Units/L [facility] Blood 12/27/2024 9:13 AM CDT 12/27/2024 10:38 AM CDT us Dorothea Stephen ASSISTANT TEACHER LAB BLOOD ORDERABLES Krystyna l Result [facility] Department [place] [address] * (ABNORMAL) CBC with auto differential (12/27/2024 9:13 AM CDT) WBC 5.93 3.80 - 9.90 K/cumm Hgb 13.9 11.9 - 15.5 g/dL [facility] Hct 40.1 35.6 - 45.5 % [facility] Plt 138(L) 150 - 400 K/cumm [facility] MPV 11.4 9.1 - 12.3 fL [facility] RBC 4.23 3.90 - 5.20 M/cumm [facility] MCV 94.8 81.3 - 96.4 fL [facility] MCH 32.9 27.1 - 33.3 pg [facility] MCHC 34.7 32.3 - 35.7 g/dL [facility] RDW CV 13.0 11.1 - 14.9 % [facility] RDW SD 45.3 35.7 - 48.1 fL [facility] NRBC abs 0.00 0.00 - 0.01 K/cumm [facility] Blood 12/27/2024 9:13 AM CDT 12/27/2024 10:37 AM CDT Dorothea Stephen ASSISTANT TEACHER LAB BLOOD ORDERABLES Krystyna l Result [facility] Department [place] [address] * Magnesium (12/27/2024 9:13 AM CDT) Magnesium 1.9 1.4 - 2.5 mg/dL Blood 12/27/2024 9:13 AM CDT 12/27/2024 10:50 AM CDT Mo Villatoro MD LAB BLOOD ORDERABLES Final Resul t [facility] Department [place] [address] * Blood culture Blood (12/27/2024 9:05 AM CDT) Report Final Report: No growth Blood 12/27/2024 9:05 AM CDT 12/27/2024 11:47 AM CDT Narrative [facility] - 12/31/2024 12:00 PM CDT [...] performance characteristics have been verified by the [facility] Microbiology [facility]. For questions about this culture, contact the Microbiology Laboratory at [phone]. Interpretive data was last revised on 24. Dorothea Stephen NP LAB MICROBIOLOGY - GENERA L ORDERABLES Final Result Performing Organization Address [facility]/ZIP Co de Phone Number [facility] Department [place] [address] * Blood culture Blood (12/27/2024 9:05 AM CDT) Report Final Report: No growth Blood 12/27/2024 9:05 AM CDT 12/27/2024 11:47 AM CDT Narrative [facility] - 12/31/2024 12:00 PM CDT [...] performance characteristics have been verified by the [facility]biology [facility]. For questions about this culture, contact the Microbiology Laboratory at [phone]. Interpretive data was last revised on 24. Dorothea Stephen NP LAB MICROBIOLOGY - GENERA L ORDERABLES Final Result Performing Organization Address [facility]/ZIP Co de Phone Number [facility] Department [place] [address] * (ABNORMAL) Cystatin C (11/28/2024 10:45 AM [...] revised on 2020. Testing performed by: [facility], [facility], [place]., [address] Blood 11/28/2024 10:4 5 AM CDT 11/28/2024 12:03 PM CDT us Pieter Wynn MD LAB BLOOD ORDERABLES Final Resu lt [facility] Department [place] [address] * eGFR (11/27/2024 9:44 PM CDT) eGFR [...] LAB BLOOD ORDERABLES Krystyna mira Result [facility] Department [place] [address] * (ABNORMAL) Differential, auto (11/27/2024 9:44 PM CDT) Neutrophil abs 2.70 1.50 - 6.50 K/cumm Imm gran abs 0.03 0.00 - 0.10 K/cumm [facility] Lymphocyte abs 2.90 0.80 - 3.30 K/cumm [facility] Monocyte abs 0.50 0.20 - 0.80 K/cumm [facility] Eosinophil abs 0.13 0.00 - 0.50 K/cumm [facility] Basophil abs 0.13(H) 0.00 - 0.10 K/cumm [facility] Neutrophil pct 42.3 % [facility] Comment: Interpretive Data Percent cell count reference ranges are not reported, since discordance with absolute values may lead to misinterpretation of CBC data. Current Interpretive Data was last revised on 2017. Imm gran pct 0.5 % [facility] Comment: Interpretive Data Percent cell count reference ranges are not reported, since discordance with absolute values may lead to misinterpretation of CBC data. Current Interpretive Data was last revised on 2017. Lymphocyte pct 45.4 % [facility] Comment: Interpretive Data Percent cell count reference ranges are not reported, since discordance with absolute values may lead to misinterpretation of CBC data. Current Interpretive Data was last revised on 2017. Monocyte pct 7.8 % [facility] Comment: Interpretive Data Percent cell count reference ranges are not reported, since discordance with absolute values may lead to misinterpretation of CBC data. Current Interpretive Data was last revised on 2017. Eosinophil pct 2.0 % [facility] Comment: Interpretive Data Percent cell count reference ranges are not reported, since discordance with absolute values may lead to misinterpretation of CBC data. Current Interpretive Data was last revised on 2017. Basophil pct 2.0 % [facility] Comment: Interpretive Data Percent cell count reference ranges are not reported, since discordance with absolute values may lead to misinterpretation of CBC data. Current Interpretive Data was last revised on 2017. Blood 11/27/2024 9:44 PM CDT 11/27/2024 10:41 PM CDT us Lee Elena MD LAB BLOOD ORDERABLES Krystyna meyers Result [facility] Department [place] [address] * (ABNORMAL) CBC with auto differential (11/27/2024 9:44 PM CDT) WBC 6.39 3.80 - 9.90 K/cumm Hgb 10.5(L) 11.9 - 15.5 g/dL [facility] Hct 32.5(L) 35.6 - 45.5 % [facility] Plt 419(H) 150 - 400 K/cumm [facility] MPV 9.3 9.1 - 12.3 fL [facility] RBC 3.10(L) 3.90 - 5.20 M/cumm [facility] MCV 104.8(H) 81.3 - 96.4 fL [facility] MCH 33.9(H) 27.1 - 33.3 pg [facility] MCHC 32.3 32.3 - 35.7 g/dL [facility] RDW CV 18.6(H) 11.1 - 14.9 % [facility] RDW SD 71.7(H) 35.7 - 48.1 fL [facility] NRBC abs 0.00 0.00 - 0.01 K/cumm [facility] Blood 11/27/2024 9:44 PM CDT 11/27/2024 10:41 PM CDT Lee Elena MD LAB BLOOD ORDERABLES Krystyna l Result Performing Organization Address City/[facility]/ZIP Co de Phone Number [facility] [place] [address] * (ABNORMAL) Vitamin D 25 hydroxy (11/27/2024 9:44 PM CDT) Pathologist [facility] Vitamin D 25-OH 27(L) 30 - 80 ng/mL Blood 11/27/2024 9:44 PM CDT 11/27/2024 10:41 PM CDT Pieter Wynn MD LAB BLOOD ORDERABLES Final Resu lt Performing Organization Address [facility] [place] [address] * Protime-INR (11/27/2024 9:44 PM CDT) Pathologist [facility] PT 10.2 9.7 - 13.0 sec INR 0.95 0.90 - 1.20 [facility] Comment: Interpretive data Oral anticoagulant therapeutic ranges: Venous thromboembolism prophylaxis or treatment: 2.0-3.0 CARDIOLOGY Standard range: 2.0-3.0 High-intensity range: 2.5-3.5 Refer to indication-specific guidelines for appropriate target ranges for prosthetic heart valve replacement. Current interpretive data was last revised on 2019. Blood 11/27/2024 9:44 PM CDT 11/27/2024 10:45 PM CDT Lee Elena MD LAB BLOOD ORDERABLES Krystyna l Result Performing Organization Address [facility] [place] [address] * (ABNORMAL) Phosphorus (11/27/2024 9:44 PM CDT) Pathologist [facility] Phosphorus, pl 6.6(H) 2.3 - 4.5 mg/dL Blood 11/27/2024 9:44 PM CDT 11/27/2024 10:41 PM CDT Lee Elena MD LAB BLOOD ORDERABLES Krystyna l Result Performing Organization Address City/[facility] Co de Phone Number [facility] Department [place] [address] * Magnesium (11/27/2024 9:44 PM CDT) Pathologist [facility] Magnesium 1.6 1.4 - 2.5 mg/dL Blood 11/27/2024 9:44 PM CDT 11/27/2024 10:41 PM CDT Lee Elena MD LAB BLOOD ORDERABLES Krystyna l Result Performing Organization Address [facility] de Phone Number [facility] Department [place] [address] * (ABNORMAL) Hepatic function panel (11/27/2024 9:44 PM CDT) Bilirubin, total 0.4 0.1 - 1.2 mg/dL Bilirubin, direct 0.2 0.1 - 0.3 mg/dL [facility] Protein, pl 7.3 6.5 - 8.5 g/dL [facility] Albumin 3.4(L) 3.5 - 5.0 g/dL [facility] Alk phos 133(H) 40 - 130 Units/L [facility] ALT 17 7 - 45 Units/L [facility] AST 36 10 - 45 Units/L [facility] Blood 11/27/2024 9:44 PM CDT 11/27/2024 10:41 PM CDT Lee Elena MD LAB BLOOD ORDERABLES Krystyna l Result Performing Organization Address [facility] Co de Phone Number [facility] Department [place] [address] * (ABNORMAL) Basic metabolic panel (11/27/2024 9:44 PM CDT) [facility] Sodium 139 135 - 145 mmol/L Potassium, pl 4.3 3.3 - 4.9 mmol/L [facility] Chloride 101 97 - 110 mmol/L [facility] CO2 31 22 - 32 mmol/L [facility] Anion gap 7 2 - 15 mmol/L [facility] BUN 18 6 - 25 mg/dL [facility] Creatinine 0.50(L) 0.60 - 1.10 mg/dL [facility] Glucose 99 70 - 199 mg/dL [facility] Comment: Interpretive Data Fasting glucose >/= [...] Calcium 10.0 8.5 - 10.3 mg/dL [facility] Blood 11/27/2024 9:44 PM CDT 11/27/2024 10:41 PM CDT Lee Elena MD LAB BLOOD ORDERABLES Krystyna meyers Result [facility] Department [place] [address] * eGFR (11/26/2024 9:38 PM CDT) [facility] eGFR >90 >=60 mL/min/1. 73 m2 [...] LAB BLOOD ORDERABLES Krystyna meyers Result [facility] Department [place] [address] * (ABNORMAL) Differential, auto (11/26/2024 9:38 PM CDT) Neutrophil abs 2.02 1.50 - 6.50 K/cumm Imm gran abs 0.03 0.00 - 0.10 K/cumm [facility] Lymphocyte abs 3.04 0.80 - 3.30 K/cumm [facility] Monocyte abs 0.56 0.20 - 0.80 K/cumm [facility] Eosinophil abs 0.10 0.00 - 0.50 K/cumm [facility] Basophil abs 0.11(H) 0.00 - 0.10 K/cumm [facility] Neutrophil pct 34.4 % [facility] Comment: Interpretive Data Percent cell count reference ranges are not reported, since discordance with absolute values may lead to misinterpretation of CBC data. Current Interpretive Data was last revised on 2017. Imm gran pct 0.5 % [facility] Comment: Interpretive Data Percent cell count reference ranges are not reported, since discordance with absolute values may lead to misinterpretation of CBC data. Current Interpretive Data was last revised on 2017. Lymphocyte pct 51.9 % [facility] Comment: Interpretive Data Percent cell count reference ranges are not reported, since discordance with absolute values may lead to misinterpretation of CBC data. Current Interpretive Data was last revised on 2017. Monocyte pct 9.6 % [facility] Comment: Interpretive Data Percent cell count reference ranges are not reported, since discordance with absolute values may lead to misinterpretation of CBC data. Current Interpretive Data was last revised on 2017. Eosinophil pct 1.7 % [facility] Comment: Interpretive Data Percent cell count reference ranges are not reported, since discordance with absolute values may lead to misinterpretation of CBC data. Current Interpretive Data was last revised on 2017. Basophil pct 1.9 % [facility] Comment: Interpretive Data Percent cell count reference ranges are not reported, since discordance with absolute values may lead to misinterpretation of CBC data. Current Interpretive Data was last revised on 2017. Blood 11/26/2024 9:38 PM CDT 11/26/2024 10:36 PM CDT Lee Elena MD LAB BLOOD ORDERABLES Krystyna meyers Result [facility] Department [place] [address] * (ABNORMAL) CBC with auto differential (11/26/2024 9:38 PM CDT) WBC 5.86 3.80 - 9.90 K/cumm Hgb 9.7(L) 11.9 - 15.5 g/dL [facility] Hct 29.7(L) 35.6 - 45.5 % [facility] Plt 398 150 - 400 K/cumm [facility] MPV 9.2 9.1 - 12.3 fL [facility] RBC 2.87(L) 3.90 - 5.20 M/cumm [facility] MCV 103.5(H) 81.3 - 96.4 fL [facility] MCH 33.8(H) 27.1 - 33.3 pg [facility] MCHC 32.7 32.3 - 35.7 g/dL [facility] RDW CV 18.7(H) 11.1 - 14.9 % [facility] RDW SD 71.5(H) 35.7 - 48.1 fL [facility] NRBC abs 0.00 0.00 - 0.01 K/cumm [facility] Blood 11/26/2024 9:38 PM CDT 11/26/2024 10:36 PM CDT Lee Elena MD LAB BLOOD ORDERABLES Krystyna l Result Performing Organization Address [facility] Co de Phone Number [facility] [employer] [place] [address] * (ABNORMAL) Protime-INR (11/26/2024 9:38 PM CDT) PT 9.5(L) 9.7 - 13.0 sec INR 0.88(L) 0.90 - 1.20 [facility] Comment: Interpretive data Oral anticoagulant therapeutic ranges: Venous thromboembolism prophylaxis or treatment: 2.0-3.0 CARDIOLOGY Standard range: 2.0-3.0 High-intensity range: 2.5-3.5 Refer to indication-specific guidelines for appropriate target ranges for prosthetic heart valve replacement. Current interpretive data was last revised on 2019. Blood 11/26/2024 9:38 PM CDT 11/26/2024 10:43 PM CDT Lee Elena MD LAB BLOOD ORDERABLES Krystyna l Result Performing Organization Address [facility] Co de Phone Number [facility] [place] [address] * (ABNORMAL) Phosphorus (11/26/2024 9:38 PM CDT) Phosphorus, pl 5.7(H) 2.3 - 4.5 mg/dL Blood 11/26/2024 9:38 PM CDT 11/26/2024 10:42 PM CDT Lee Elena MD LAB BLOOD ORDERABLES Krystyna l Result Performing Organization Address City/[facility] Co de Phone Number [facility] [place] [address] * Magnesium (11/26/2024 9:38 PM CDT) Pathologist [facility] Magnesium 2.1 1.4 - 2.5 mg/dL Blood 11/26/2024 9:38 PM CDT 11/26/2024 10:42 PM CDT Lee Elena MD LAB BLOOD ORDERABLES Krystyna l Result Performing Organization Address [facility] de Phone Number [facility] Department [place] [address] * (ABNORMAL) Hepatic function panel (11/26/2024 9:38 PM CDT) Bilirubin, total 0.3 0.1 - 1.2 mg/dL Bilirubin, direct 0.2 0.1 - 0.3 mg/dL [facility] Protein, pl 6.5 6.5 - 8.5 g/dL [facility] Albumin 2.8(L) 3.5 - 5.0 g/dL [facility] Alk phos 132(H) 40 - 130 Units/L [facility] ALT 17 7 - 45 Units/L [facility] AST 38 10 - 45 Units/L [facility] Blood 11/26/2024 9:38 PM CDT 11/26/2024 10:42 PM CDT Lee Elena MD LAB BLOOD ORDERABLES Krystyna l Result Performing Organization Address [facility] Co de Phone Number [facility] Department [place] [address] * (ABNORMAL) Basic metabolic panel (11/26/2024 9:38 PM CDT) Pathologist [facility] Sodium 141 135 - 145 mmol/L Potassium, pl 4.1 3.3 - 4.9 mmol/L [facility] Chloride 101 97 - 110 mmol/L [facility] CO2 29 22 - 32 mmol/L [facility] Anion gap 11 2 - 15 mmol/L [facility] BUN 15 6 - 25 mg/dL [facility] Creatinine 0.54(L) 0.60 - 1.10 mg/dL [facility] Glucose 89 70 - 199 mg/dL [facility] Comment: Interpretive Data Fasting glucose >/= [...] Calcium 9.1 8.5 - 10.3 mg/dL [facility] Blood 11/26/2024 9:38 PM CDT 11/26/2024 10:42 PM CDT us Lee Elena MD LAB BLOOD ORDERABLES Krystyna meyers Result [facility] Department [place] [address] * TRANSTHORACIC ECHO (TTE) LIMITED/FOLLOW UP W LTD DOPPLER/CF W CONTRAST (11/26/2024 1:54 PM CDT) [facility] Estimated EF 55-60 % CONS SCIMAGE Anatomical Region Laterality Modality Ultrasound 11/26/2024 1:05 PM CDT Narrative 11/26/2024 2:37 PM CDT [facility] [place] [address] Transthoracic Echocardiographic Report Patient Name: HAYLEY LEÓN L : 1990 (34y 9m) Gender: F Study Date: 11/26/2024 01:05:04 PM Ht(Inch): 61 Wt(Lb): 98.1 BSA: 1.38 Butcher Head: Lise De Anda Location: [id number] Order Provider: PIETER WYNN Heart Rate: 72 [...] Procedure Note Jim Malloy MD - 11/26/2024 [facility] [place] [address] Transthoracic Echocardiographic Report Patient Name: HAYLEY LEÓN L : 1990 (34y 9m) Gender: F Study Date: 11/26/2024 01:05:04 PM Ht(Inch): 61 Wt(Lb): 98.1 BSA: 1.38 Butcher Head: Lise De Anda Location: [id number] Order Provider:PIETER WYNN Heart Rate: 72 BMI: [...] DEVICE Fi nal Result Performing Organization Address City/[facility]/ZIP Co wa Phone Number [facility] BACK [facility] Department [place] [address] * eGFR (11/25/2024 9:19 PM CDT) eGFR [...] ORDERABLES Krystyna l Result [facility] BACK [facility] Department [place] [address] * Differential, auto (11/25/2024 9:19 PM CDT) Neutrophil abs 1.90 1.50 - 6.50 K/cumm Imm gran abs 0.02 0.00 - 0.10 K/cumm [facility] Lymphocyte abs 2.86 0.80 - 3.30 K/cumm [facility] Monocyte abs 0.53 0.20 - 0.80 K/cumm [facility] Eosinophil abs 0.11 0.00 - 0.50 K/cumm [facility] Basophil abs 0.09 0.00 - 0.10 K/cumm [facility] Neutrophil pct 34.5 % [facility] Comment: Interpretive Data Percent cell count reference ranges are not reported, since discordance with absolute values may lead to misinterpretation of CBC data. Current Interpretive Data was last revised on 2017. Imm gran pct 0.4 % [facility] Comment: Interpretive Data Percent cell count reference ranges are not reported, since discordance with absolute values may lead to misinterpretation of CBC data. Current Interpretive Data was last revised on 2017. Lymphocyte pct 51.9 % [facility] Comment: Interpretive Data Percent cell count reference ranges are not reported, since discordance with absolute values may lead to misinterpretation of CBC data. Current Interpretive Data was last revised on 2017. Monocyte pct 9.6 % [facility] Comment: Interpretive Data Percent cell count reference ranges are not reported, since discordance with absolute values may lead to misinterpretation of CBC data. Current Interpretive Data was last revised on 2017. Eosinophil pct 2.0 % [facility] Comment: Interpretive Data Percent cell count reference ranges are not reported, since discordance with absolute values may lead to misinterpretation of CBC data. Current Interpretive Data was last revised on 2017. Basophil pct 1.6 % [facility] Comment: Interpretive Data Percent cell count reference ranges are not reported, since discordance with absolute values may lead to misinterpretation of CBC data. Current Interpretive Data was last revised on 2017. Blood 11/25/2024 9:19 PM CDT 11/25/2024 10:49 PM CDT Lee Elena MD LAB BLOOD ORDERABLES Krystyna l Result Performing Organization Address [facility] Co de Phone Number [facility] Department [place] [address] * (ABNORMAL) CBC with auto differential (11/25/2024 9:19 PM CDT) WBC 5.51 3.80 - 9.90 K/cumm Hgb 10.2(L) 11.9 - 15.5 g/dL [facility] Hct 31.9(L) 35.6 - 45.5 % [facility] Plt 466(H) 150 - 400 K/cumm [facility] MPV 9.4 9.1 - 12.3 fL [facility] RBC 3.06(L) 3.90 - 5.20 M/cumm [facility] MCV 104.2(H) 81.3 - 96.4 fL [facility] MCH 33.3 27.1 - 33.3 pg [facility] MCHC 32.0(L) 32.3 - 35.7 g/dL [facility] RDW CV 19.1(H) 11.1 - 14.9 % [facility] RDW SD 72.8(H) 35.7 - 48.1 fL [facility] NRBC abs 0.00 0.00 - 0.01 K/cumm [facility] Blood 11/25/2024 9:19 PM CDT 11/25/2024 10:49 PM CDT Lee Elena MD LAB BLOOD ORDERABLES Krystyna meyers Result Performing Organization Address [facility]/ZIP Co de Phone Number [facility] [place] [address] * Protime-INR (11/25/2024 9:19 PM CDT) PT 10.0 9.7 - 13.0 sec INR 0.93 0.90 - 1.20 [facility] Comment: Interpretive data Oral anticoagulant therapeutic ranges: Venous thromboembolism prophylaxis or treatment: 2.0-3.0 CARDIOLOGY Standard range: 2.0-3.0 High-intensity range: 2.5-3.5 Refer to indication-specific guidelines for appropriate target ranges for prosthetic heart valve replacement. Current interpretive data was last revised on 2019. Blood 11/25/2024 9:19 PM CDT 11/25/2024 10:46 PM CDT Lee Elena MD LAB BLOOD ORDERABLES Krystyna l Result Performing Organization Address [facility] de Phone Number [facility] [place] [address] * (ABNORMAL) Phosphorus (11/25/2024 9:19 PM CDT) Pathologist [facility] Phosphorus, pl 5.2(H) 2.3 - 4.5 mg/dL Blood 11/25/2024 9:19 PM CDT 11/25/2024 10:47 PM CDT Lee Elena MD LAB BLOOD ORDERABLES Krystyna l Result Performing Organization Address [facility] de Phone Number [facility] [place] [address] * Magnesium (11/25/2024 9:19 PM CDT) [facility] Magnesium 1.6 1.4 - 2.5 mg/dL Blood 11/25/2024 9:19 PM CDT 11/25/2024 10:47 PM CDT Lee Elena MD LAB BLOOD ORDERABLES Krystyna l Result Performing Organization Address [facility] de Phone Number [facility] [place] [address] * (ABNORMAL) Hepatic function panel (11/25/2024 9:19 PM CDT) [facility] Bilirubin, total 0.4 0.1 - 1.2 mg/dL Bilirubin, direct 0.2 0.1 - 0.3 mg/dL [facility] Protein, pl 6.8 6.5 - 8.5 g/dL [facility] Albumin 3.0(L) 3.5 - 5.0 g/dL [facility] Alk phos 142(H) 40 - 130 Units/L [facility] ALT 16 7 - 45 Units/L [facility] AST 35 10 - 45 Units/L [facility] Blood 11/25/2024 9:19 PM CDT 11/25/2024 10:47 PM CDT Lee Elena MD LAB BLOOD ORDERABLES Krystyna l Result [facility] [place] [address] * (ABNORMAL) Basic metabolic panel (11/25/2024 9:19 PM CDT) [facility] Sodium 143 135 - 145 mmol/L Potassium, pl 4.3 3.3 - 4.9 mmol/L [facility] Chloride 104 97 - 110 mmol/L [facility] CO2 29 22 - 32 mmol/L [facility] Anion gap 10 2 - 15 mmol/L [facility] BUN 16 6 - 25 mg/dL [facility] Creatinine 0.46(L) 0.60 - 1.10 mg/dL [facility] Glucose 99 70 - 199 mg/dL [facility] Comment: Interpretive Data Fasting glucose >/= [...] Calcium 9.5 8.5 - 10.3 mg/dL [facility] Blood 11/25/2024 9:19 PM CDT 11/25/2024 10:47 PM CDT us Lee Elena MD LAB BLOOD ORDERABLES Krystyna l Result Performing Organization Address [facility] de Phone Number [facility] Department [place] [address] * Hepatitis panel, acute Blood (11/03/2024 2:31 PM CDT) Pathologist [facility] Hep A IgM Nonreactive Nonreactive Hep B core IgM Nonreactive Nonreactive [facility] Hep C Ab Nonreactive Nonreactive [facility] Comment:Antibodies to HCV no t detected. Does NOT exclude the possibility of recent exposure to HCV. Current interpretive data was last revised on 22 HepBsAg Nonreactive Nonreactive [facility] Blood 11/03/2024 2:31 PM CDT 11/03/2024 2:38 PM CDT us Mar George MD LAB MICROBIOLOGY - GENERAL ORDERABLES Final Result Performing Organization Address [facility] de Phone Number [facility] [place] [address] * THINPREP TIS PAP REFLEX HPV mRNA E6/E7, CHLAMYDIA/N.GONORRHOEAE (09/14/2016 12:56 PM KINDERGARTEN INSTRUCTIONAL ASSISTANT) CLINICAL INFORMATION [facility] HISTORICAL RESULTS Comment: LMP: [facility] HISTORICAL RESULTS PREV. PAP: [facility]ISTORICAL RESULTS Comment:2011 PREV. BX: [facility] Comment:UNKNOWN SOURCE: [facility] HISTORICAL RESULTS Comment:Cervix, Endocervix STATEMENT OF ADEQUACY: [facility]IST[facility] RESULTS Comment:Satisfactory for savana luation. Endocervical/transformation zone component present. INTERPRETATION/RES ULT: [facility] HISTORICAL RESULTS Comment:Negative for intraep ithelial lesion or malignancy. COMMENT: [facility] HISTORICAL RESULTS Comment:This Pap test has be en evaluated with computer assisted technology. MARKETING SYSTEMS MANAGER: [facility] HISTORICAL RESULTS Comment:YQ, CT(ASCP) CT scre ening location: [place] [address] [place] [address] C. trachomatis RNA NOT DETECTED NOT DETECTED [facility] HISTORICAL RESULTS N. gonorrhoeae RNA NOT DETECTED NOT DETECTED [facility] HISTORICAL RESULTS COMMENT [facility] HISTORICAL RESULTS Comment: This test was performed using the APTIMA COMBO2 Assay ([employer] The analytical performance characteristics of this assay, when used to test SurePath specimens have been determined by [employer] [facility] 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
--- OUTSIDE RECORDS SUMMARY | 2025-02-25 21:41 | XMS_ITS | Clinical Summary ---
Author Organization [facility] dipika [facility] Address [address] [place] [address] [place] [address] Care Team Providers Care Auto Headlight Mechanic Name Role Phone Unavailable Primary Care Provider [...]
--- OUTSIDE RECORDS SUMMARY | 2025-02-25 21:41 | XMS_ITS | Encounter Summary ---
Author Organization [facility] Facility Care Team Providers Care Operations Forester Name Role Phone Christian Merritt MD Primary Care Provider [phone] Mo Mitchell MD Primary Care Provider [phone] Neeta Ott RN Unavailable [phone] Encounter Details Date Type Department Care Team (Latest Contact Info) Description 12/06/2016 Orders Only [facility] Provider, MD Serge [address] [place] [address] Social History Tobacco Use Types Packs/Day Years Used Date Smoking Tobacco: Never Assessed Comments Unknown Sex and Gender Information Value Date Recorded Sex Assigned at Not on file Legal Sex Female 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
--- OUTSIDE RECORDS SUMMARY | 2025-02-25 21:41 | XMS_ITS | Encounter Summary ---
Author Organization [facility] Facility Care Team Providers Care Endoscopy Technican Name Role Phone Christian Merritt MD Primary Care Provider [phone] Mo Mitchell MD Primary Care Provider [phone] Neeta Ott RN Unavailable [phone] Encounter Details Date Type Department Care Team (Latest Contact Info) Description 01/05/2017 Orders Only [facility]INCONV Provider, MD Serge [address] [place] [address] Social History Tobacco Use Types Packs/Day Years Used Date Smoking Tobacco: Never Assessed Comments Unknown Sex and Gender Information Value Date Recorded Sex Assigned at Not on file Legal Sex Female 8:06 PM 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
--- OUTSIDE RECORDS SUMMARY | 2025-02-25 21:41 | XMS_ITS | Encounter Summary ---
Author Organization [facility] Address [address] [place] [address] Phone Care Team Providers Care Retail And Promotions Coordinator Name Role Phone Mo Mitchell MD Primary Care Provider [phone] Reason for Visit * Reason Onset Date Comments Scheduling Appointments 02/01/2025 Encounter Details Date Type Department Care Team (Late st Contact Info) Description 02/01/2025 Telephone [facility] Cardiology [address] [facility] 8th [place] [address] [place] [address] Scheduling Appointments [...] materials from doctor or pharmacy Sometimes 01/18/2025 [facility] Utilities Answer Date Recorded In the [...] often do you attend chur ch or adventism services? Never 11/29/2024 Do you belong to any clubs o r organizations such as judaism groups, unions, fraternal or athletic groups, or [...] were you homeless or living in a alf (including now)? No 11/29/2024 Personal Safety Answer Date Recorded Have you ever been in or are you currently in a harmful physical or emotional relationship or is someone making you feel afraid or unsafe? 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 Patient declined and asked for a . [...] documented as of this encounter Care Teams Retail And Promotions Coordinator Relationship Specialty Start Date End Date Mo Mitchell MD [address] [facility] [place] [address] PCP - General Internal Medicine 10/31/24 documented as of this encounter
--- OUTSIDE RECORDS SUMMARY | 2025-02-25 21:41 | XMS_ITS | Clinical Summary ---
Author Organization [facility] Address [address] [place] [address] Care Team Providers Care Plumber Apprentice Name Role Phone Mo Mitchell MD Primary Care Provider [phone] Allergies Active Allergy Reactions Criticality Noted Date [...] for diarrhea 100 mL 5 Active multivit nwnbdipc-ygyy-E A-calcium (THERA-M) 9 mg iron-400 mcg tabletIndicatio [...] daily until blood thinner is received from green jobs trainer office Indications: treatment to prevent a heart [...] Care Team Description 02/22/2025 Home Care Visit [address] [place] [address] Nayely Pedroza, RN SN VIRTUAL NON OASIS DISCHARGE 02/20/2025 Home Care Visit [address] [place] [address] Nayely Pedroza, RN TELEPHONE ENCOUNTER 02/19/2025 Home Care Visit [address] [place] [address] Nayely Pedroza, RN TELEPHONE ENCOUNTER 02/15/2025 Orders Only [facility] Cardiothoracic Surgery [address] [facility] 8th Floor [address] Room [address] [place] [phone] Bo Fried MD Mass of left cardiac ventricle (Primary Dx) 02/15/2025 Telephone [facility] [address] [place] [address] Unknown, Notinfile 02/14/2025 Telephone [facility] [address] [facility] [address] [place] [address] Salas, Summer 02/13/2025 Orders Only [facility] Cardiothoracic Surgery [address] [facility] 8th Floor [address] Room [address] [phone] Bo Fried MD Mass of left cardiac ventricle (Primary Dx) 02/12/2025 2:30 PM CDT Home Care Visit [address] [address] [address] [place] [address] Nayely Pedroza, BRITTANIE SN HOME VISIT 02/07/2025 10:00 AM CDT Home Care Visit [address] [place] [address] Isabelle Campbell, OT OT INITIAL EVALUATION 02/07/2025 9:00 AM CDT Home Care Visit [address] [place] [address] Pia Swan, RN SN HOME VISIT 02/07/2025 Telephone [facility] Infectious Diseases [address] [facility] [address] [place] [phone] Rosangela Simental, ROSA MARIA 02/06/2025 2:00 PM CDT Home Care Visit [address] [place] [address] Thang Solorzano, PT PT INITIAL EVALUATION 02/05/2025 Home Care Visit [address] [place] [address] Pia Moon, BRITTANIE TELEPHONE ENCOUNTER 02/01/2025 Telephone [facility] Cardiology [address] [facility] 8th Floor [address] [place] [phone] Nani Melchor, STAN Scheduling Appointments 01/31/2025 2:00 PM CDT Home Care Visit [address] [place] [address] Nayely Pedroaz, BRITTANIE SN OASIS RECERTIFICATION 01/31/2025 Plan of Care Documentation [address] [place] [address] 01/29/2025 Home Care Visit [address] [place] [address] Nayely Pedroza, BRITTANIE TELEPHONE ENCOUNTER 01/28/2025 Home Care Visit [address] [place] [address] Nayely Pedroza, BRITTANIE TELEPHONE ENCOUNTER 01/24/2025 9:40 AM CDT Office Visit [facility] Infectious Diseases [address] [facility] [address] [place] [phone] Dorothea Stephen, BRAXTON MSSA bacteremia (Primary Dx) 01/22/2025 12:40 PM CDT - 01/22/2025 11:59 PM CDT Hospital Encounter [facility] [address] [place] [address] Discharge Disposition: Discharge to home or self care 01/22/2025 12:00 PM CDT Home Care Visit [address] [place] [address] Nayely Pedroza, BRITTANIE SN HOME VISIT 01/18/2025 10:30 AM CDT Home Care Visit [address] [place] [address] Billy Zarco, BRITTANIE SN OASIS RESUMPTION OF CARE 01/18/2025 Plan of Care Documentation [address] [place] [address] 01/17/2025 Orders Only [facility] Cardiology [address] [place] [phone] Oz Noble MD 01/17/2025 Home Care Visit [address] [place] [address] Pia Moon, RN SN OASIS TRANSFER W/OUT DC 01/16/2025 Home Care Visit [address] [place] [address] Pia Moon, RN TELEPHONE ENCOUNTER 01/15/2025 10:00 AM CDT Office Visit [facility] Cardiothoracic Surgery [address] [facility] Advanced Medicine 8th Floor [address] Room [address] [place] [phone] Bo Fried MD Mass of left cardiac ventricle 01/15/2025 8:15 AM CDT - 01/15/2025 11:59 PM CDT Hospital Encounter [facility] Cardiac Diagnostic Lab [address] [facility] 8th [place] [phone] Bo Fried MD MSSA bacteremia; Thrombocytopenia Discharge Disposition: Discharge to home or self care 01/14/2025 Telephone [facility] [address] [facility] [address] [place] [address] Ondina Salas [facility] 01/11/2025 Telephone [facility] [address] [facility] [address] [place] [address] Vidhi Martin 01/09/2025 Telephone [facility] Infectious Diseases [address] [facility] [address] [place] [phone] Sidney Gould Jr., RN 01/08/2025 Telephone [facility] [address] [place] [address] [address] [place] [address] Vidhi Martin 01/01/2025 2:10 PM CDT - 01/01/2025 11:59 PM CDT Hospital Encounter [facility] [address] [place] [address] Discharge Disposition: Discharge to home or self care 01/01/2025 2:00 PM CDT Home Care Visit [address] [place] [address] Nayely Pedroza, BRITTANIE SN HOME VISIT 01/01/2025 Telephone [facility] Infectious Diseases [address] [facility] [address] [place] [address] Sidney Gould Jr., RN 12/31/2024 Telephone [facility] Cardiology [address] [place] [address] 8th [place] [address] [place] [phone] Nani Melchor NP 12/31/2024 Orders Only [facility] Infectious Diseases [address] [address] Dorothea Stephen, BRAXTON 12/28/2024 11:00 AM CDT Home Care Visit [address] [place] [address] Nayely Pedroza RN SN HOME VISIT 12/27/2024 2:00 PM CDT Home Care Visit [address] [place] [address] Thang Solorzano, PT PT DISCIPLINE DISCHARGE 12/27/2024 9:13 AM CDT - 12/27/2024 11:59 PM CDT Hospital Encounter [facility] [address] [place] [address] Discharge Disposition: Discharge to home or self care 12/27/2024 8:40 AM CDT Office Visit [facility] Infectious Diseases [address] [address] Dorothea Stephen, BRAXTON MSSA bacteremia (Primary Dx); Encounter for screening examination for sexually transmitted disease 12/27/2024 Telephone [facility] Infectious Diseases [address] [facility] [address] [place] [address] Dorothea Stephen, BRAXTON 12/25/2024 Telephone [facility] Primary Care Medicine Clinic [address] [facility] [address] [place] [address] Veronika Ocampo MD 12/21/2024 2:00 PM CDT Home Care Visit [address] [place] [address] Thang Solorzano, PT PT HOME VISIT 12/21/2024 11:30 AM CDT Home Care Visit [address] [place] [address] Nayely Pedroza, RN SN HOME VISIT 12/21/2024 Orders Only [facility] Cardiology [address] [facility] 8th [place] [address] [place] [phone] Nani Melchor, BRAXTON 12/19/2024 11:00 AM CDT Home Care Visit [address] [place] [address] Thang Solorzano, PT PT HOME VISIT 12/19/2024 Home Care Visit [address] [place] [address] Thang Solorzano, PT CASE COMMUNICATION 12/13/2024 10:45 AM CDT Home Care Visit [address] [place] [address] Khushboo Jarvis, PT PT HOME VISIT 12/11/2024 2:30 PM CDT Home Care Visit [address] [place] [address] Khushboo Jarvis, PT PT HOME VISIT 12/11/2024 1:00 PM CDT Home Care Visit [address] [place] [address] Nayely Pedroza, RN SN HOME VISIT 12/07/2024 SHOP/CHAP Subsequent Outreach [facility] OP CASE MANAGEMENT [address] [place] [address] Neeta Ott, RN 12/06/2024 12:30 PM CDT Home Care Visit [address] [place] [address] Nayely Pedroza, RN SN HOME VISIT 12/06/2024 11:00 AM CDT Home Care Visit [address] [place] [address] Isabelle Campbell, OT OT INITIAL EVALUATION 12/05/2024 SHOP/CHAP Subsequent Outreach [facility] OP CASE MANAGEMENT [address] [place] [address] Neeta Ott, BRITTANIE 12/04/2024 SHOP/CHAP Subsequent Outreach [facility] OP CASE MANAGEMENT [address] [place] [address] Neeta Ott, RN 12/04/2024 Home Care Visit [address] [place] [address] Nayely Pedroza, RN CARE CONFERENCE 12/03/2024 1:10 PM CDT Telemedicine [address] [place] [address] Yamilex Mathew, BRAXTON Torsades de pointes (HCC) (Primary Dx); MSSA bacteremia 12/03/2024 10:00 AM CDT Home Care Visit [address] [place] [address] Thang Solorzano, PT PT INITIAL EVALUATION 12/03/2024 Home Care Visit [address] [place] [address] Billy Zarco, RN TELEPHONE ENCOUNTER 12/03/2024 Home Care Visit [address] [place] [address] Thang Solorzano, PT TELEPHONE ENCOUNTER 12/01/2024 12:00 PM CDT Home Care Visit [address] [place] [address] Billy Zarco, BRITTANIE SN OASIS START OF CARE 12/01/2024 Plan of Care Documentation [address] [place] [address] 11/30/2024 Orders Only [facility] Cardiothoracic Surgery [address] [facility] Medicine 8th Floor [address] [place] [phone] Lee Elena MD Mass of left cardiac ventricle (Primary Dx) 11/29/2024 Telephone [facility] [address] [facility] [address] [place] [address] Dora Sandra 11/29/2024 Orders Only Internal Medicine Pieter Wynn MD 11/29/2024 SHOP/CHAP Initial Outreach [facility] OP CASE MANAGEMENT [address] [place] [address] Neeta Ott, BRITTANIE 11/29/2024 SHOP/CHAP Initial Eligibility Review [facility] OP CASE MANAGEMENT [address] [place] [address] Neeta Ott, BRITTANIE 11/28/2024 Home Care Visit [address] [place] [address] Hortensia Valentino, BRITTANIE SN TRIAGE ENCOUNTER 11/28/2024 Orders Only [facility] Cardiothoracic Surgery [address] [facility] 8th Floor [address] [place] [phone] Bo Fried MD MSSA bacteremia (Primary Dx); Thrombocytopenia 10/31/2024 2:44 AM CDT - 11/28/2024 3:29 PM CDT Hospital Encounter [facility] [address] [place] [phone] Rahul Ramirez MD Vazquez Guillamet, MD Arnulfo [...] materials from doctor or pharmacy Sometimes 01/18/2025 [facility] Utilities Answer Date Recorded In the past 12 months has th e [employer], gas, oil, or water [employer] threatened to shut off services in your [...] week 11/29/2024 How often do you attend [facility] or voodoo services? Never 11/29/2024 Do you belong to any clubs o r organizations such as mandaen groups, unions, fraternal or athletic groups, or [...] any time in the past [address] [facility], were you homeless or living in a correction (including now)? No 11/29/2024 Personal Safety Answer Date Recorded Have you ever been in or are you currently in a harmful physical or emotional relationship or is someone making you feel afraid or unsafe? 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 Misc see comment SHONA BACK Comment:Credited, test not i ndicated. Blood 01/22/2025 12:4 0 PM CDT 01/24/2025 2:14 PM CDT us Notinfile Unknown LAB BLOOD ORDERABLES Final Res ult Performing Organization Address City/[facility] Co de Phone Number SHONA [facility] Department [place] [address] [facility] ref Lab * eGFR (01/22/2025 12:40 [...] LAB BLOOD ORDERABLES Final Res ult [facility] [place] [address] * Differential, auto (01/22/2025 12:40 PM CDT) Neutrophil abs 2.80 1.50 - 6.50 K/cumm Imm gran abs 0.00 0.00 - 0.10 K/cumm [facility] Lymphocyte abs 2.66 0.80 - 3.30 K/cumm [facility] Monocyte abs 0.21 0.20 - 0.80 K/cumm [facility] Eosinophil abs 0.14 0.00 - 0.50 K/cumm [facility] Basophil abs 0.05 0.00 - 0.10 K/cumm [facility] Neutrophil pct 47.7 % [facility] Comment: Interpretive Data Percent cell count reference ranges are not reported, since discordance with absolute values may lead to misinterpretation of CBC data. Current Interpretive Data was last revised on 2017. Imm gran pct 0.0 % [facility] Comment: Interpretive Data Percent cell count reference ranges are not reported, since discordance with absolute values may lead to misinterpretation of CBC data. Current Interpretive Data was last revised on 2017. Lymphocyte pct 45.4 % [facility] Comment: Interpretive Data Percent cell count reference ranges are not reported, since discordance with absolute values may lead to misinterpretation of CBC data. Current Interpretive Data was last revised on 2017. Monocyte pct 3.6 % [facility] Comment: Interpretive Data Percent cell count reference ranges are not reported, since discordance with absolute values may lead to misinterpretation of CBC data. Current Interpretive Data was last revised on 2017. Eosinophil pct 2.4 % [facility] Comment: Interpretive Data Percent cell count reference ranges are not reported, since discordance with absolute values may lead to misinterpretation of CBC data. Current Interpretive Data was last revised on 2017. Basophil pct 0.9 % [facility] Comment: Interpretive Data Percent cell count reference ranges are not reported, since discordance with absolute values may lead to misinterpretation of CBC data. Current Interpretive Data was last revised on 2017. Blood 01/22/2025 12:4 0 PM CDT 01/22/2025 3:52 PM CDT us Notinfile Unknown LAB BLOOD ORDERABLES Final Res ult [facility] One [facility] [place] [address] * (ABNORMAL) Iron profile w/ IBC (01/22/2025 12:40 PM CDT) Pathologist [facility] Iron 60 35 - 145 mcg/dL TIBC 322 250 - 400 mcg/dL [facility] Transferrin saturation 19(L) 20 - 50 % [facility] Blood 01/22/2025 12:4 0 PM CDT 01/22/2025 3:52 PM CDT us Notinfile Unknown LAB BLOOD ORDERABLES Final Res ult [facility] One [facility] [place] [address] * (ABNORMAL) CBC with auto differential (01/22/2025 12:40 PM CDT) [facility] WBC 5.86 3.80 - 9.90 K/cumm Hgb 12.9 11.9 - 15.5 g/dL [facility] Hct 39.0 35.6 - 45.5 % [facility] Plt 170 150 - 400 K/cumm [facility] MPV 11.0 9.1 - 12.3 fL [facility] RBC 4.01 3.90 - 5.20 M/cumm [facility] MCV 97.3(H) 81.3 - 96.4 fL [facility] MCH 32.2 27.1 - 33.3 pg [facility] MCHC 33.1 32.3 - 35.7 g/dL [facility] RDW CV 13.4 11.1 - 14.9 % [facility] RDW SD 47.5 35.7 - 48.1 fL [facility] NRBC abs 0.00 0.00 - 0.01 K/cumm [facility] Blood 01/22/2025 12:4 0 PM CDT 01/22/2025 3:52 PM CDT us Notinfile Unknown LAB BLOOD ORDERABLES Final Res ult [facility] [employer] [address] * Magnesium (01/22/2025 12:40 PM CDT) Pathologist [facility] Magnesium 2.0 1.4 - 2.5 mg/dL Blood 01/22/2025 12:4 0 PM CDT 01/22/2025 3:52 PM CDT us Notinfile Unknown LAB BLOOD ORDERABLES Final Res ult Performing Organization Address [facility] [place] [address] * Folate (01/22/2025 12:40 PM CDT) Pathologist [facility] Folic acid >20.0 >=5.0 ng/mL Blood 01/22/2025 12:4 0 PM CDT 01/22/2025 3:52 PM CDT us Notinfile Unknown LAB BLOOD ORDERABLES Final Res ult Performing Organization Address [facility] Co de Phone Number [facility] Department [place] [employer] [place] [address] * Vitamin B12 (01/22/2025 12:40 PM CDT) Pathologist [facility] Vitamin B12 815 230 - 1,250 pg/mL Blood 01/22/2025 12:4 0 PM CDT 01/22/2025 3:52 PM CDT us Notinfile Unknown LAB BLOOD ORDERABLES Final Res ult Performing Organization Address [facility] Co de Phone Number [facility] [place] [address] * (ABNORMAL) Comprehensive metabolic panel (01/22/2025 12:40 PM CDT) Pathologist [facility] Sodium 135 135 - 145 mmol/L Potassium, pl 3.4 3.3 - 4.9 mmol/L [facility] Chloride 98 97 - 110 mmol/L [facility] CO2 23 22 - 32 mmol/L [facility] Anion gap 14 2 - 15 mmol/L [facility] BUN 9 6 - 25 mg/dL [facility] Creatinine 0.63 0.60 - 1.10 mg/dL [facility] Glucose 85 70 - 199 mg/dL [facility] Comment: Interpretive Data Fasting glucose >/= 126 [...] 2022. Calcium 10.1 8.5 - 10.3 mg/dL [facility] Bilirubin, total 0.4 0.1 - 1.2 mg/dL [facility] Protein, pl 7.5 6.5 - 8.5 g/dL [facility] Albumin 4.1 3.5 - 5.0 g/dL [facility] Alk phos 139(H) 40 - 130 Units/L [facility] ALT 33 7 - 45 Units/L [facility] AST 58(H) 10 - 45 Units/L [facility] Blood 01/22/2025 12:4 0 PM CDT 01/22/2025 3:52 PM CDT us Notinfile Unknown LAB BLOOD ORDERABLES Final Res ult [facility] One [facility] Department [place] [address] * TRANSTHORACIC ECHO (TTE) COMPLETE W DOPPLER/CF W CONTRAST (01/15/2025 9:57 AM CDT) EF Mod BP 55 % CONS SCIMAGE Anatomical Region Laterality Modality Ultrasound 01/15/2025 8:50 AM CDT Narrative 01/15/2025 11:28 AM CDT [facility] Cardiac [place] [address] Transthoracic Echocardiographic Report Patient Name: HAYLEY LEÓN L : 1990 (34y 11m) Gender: F Study Date: 01/15/2025 08:50:13 AM Ht(Inch): 61 Wt(Lb): 102.07 BSA: 1.41 Range Mechanic: Roza. Watkins [facility] Location: [facility] Order Provider: BO FRIED Heart Rate: 81 [...] Note Italo Hill MD PhD - 01/15/2025 [facility] Cardiac [place] [address] Transthoracic Echocardiographic Report Patient Name: HAYLEY LEÓN L : 1990 (34y 11m) Gender: F Study Date: 01/15/2025 08:50:13 AM Ht(Inch): 61 Wt(Lb): 102.07 BSA: 1.41 Range Mechanic: Roza. Watkins [facility] Location: [facility] Order Provider:BO FRIED Heart Rate: 81 BMI: [...] LA Length 2C 3.64 cm MV Decel Ehje799.25 msec [ 104.00 - 258.00 ] LA [...] LAB BLOOD ORDERABLES Krystyna meyers Result SHONA [facility] One [facility] Department [place] [address] * (ABNORMAL) Basic metabolic panel (01/01/2025 2:10 PM CDT) Sodium 139 135 - 145 mmol/L Potassium, pl 2.9(L) 3.3 - 4.9 mmol/L [facility] Chloride 98 97 - 110 mmol/L [facility] CO2 26 22 - 32 mmol/L [facility] Anion gap 15 2 - 15 mmol/L [facility] BUN 11 6 - 25 mg/dL [facility] Creatinine 0.63 0.60 - 1.10 mg/dL [facility] Glucose 91 70 - 199 mg/dL [facility] Comment: Interpretive Data Fasting glucose >/= 126 [...] 2022. Calcium 9.2 8.5 - 10.3 mg/dL [facility] Blood 01/01/2025 2:10 PM CDT 01/01/2025 6:04 PM CDT Dorothea Stepehn NP LAB BLOOD ORDERABLES Krystyna meyers Result [facility] One [facility] Department [place] [address] * Glucose, random (Outreach) (12/27/2024 9:13 AM [...] 12/27/2024 10:38 AM CDT us Dorothea Stephen MANIPULATOR OPERATOR LAB BLOOD ORDERABLES Krystyna l Result Performing Organization Address City/[facility]/ZIP Co de Phone Number SHONA [facility] Department [place] [address] * eGFR (12/27/2024 9:13 AM CDT) eGFR [...] 12/27/2024 10:50 AM CDT us Dorothea Stephen MANIPULATOR OPERATOR LAB BLOOD ORDERABLES Krystyna l Result Performing Organization Address City/[facility]/ZIP Co de Phone Number SHONA [facility] Department [place] [address] * Differential, auto (12/27/2024 9:13 AM CDT) Pathologist [facility] Neutrophil abs 3.36 1.50 - 6.50 K/cumm Imm gran abs 0.01 0.00 - 0.10 K/cumm [facility] Lymphocyte abs 1.97 0.80 - 3.30 K/cumm [facility] Monocyte abs 0.37 0.20 - 0.80 K/cumm [facility] Eosinophil abs 0.18 0.00 - 0.50 K/cumm [facility] Basophil abs 0.04 0.00 - 0.10 K/cumm [facility] Neutrophil pct 56.7 % [facility] Comment: Interpretive Data Percent cell count reference ranges are not reported, since discordance with absolute values may lead to misinterpretation of CBC data. Current Interpretive Data was last revised on 2017. Imm gran pct 0.2 % [facility] Comment: Interpretive Data Percent cell count reference ranges are not reported, since discordance with absolute values may lead to misinterpretation of CBC data. Current Interpretive Data was last revised on 2017. Lymphocyte pct 33.2 % [facility] Comment: Interpretive Data Percent cell count reference ranges are not reported, since discordance with absolute values may lead to misinterpretation of CBC data. Current Interpretive Data was last revised on 2017. Monocyte pct 6.2 % [facility] Comment: Interpretive Data Percent cell count reference ranges are not reported, since discordance with absolute values may lead to misinterpretation of CBC data. Current Interpretive Data was last revised on 2017. Eosinophil pct 3.0 % [facility] Comment: Interpretive Data Percent cell count reference ranges are not reported, since discordance with absolute values may lead to misinterpretation of CBC data. Current Interpretive Data was last revised on 2017. Basophil pct 0.7 % [facility] Comment: Interpretive Data Percent cell count reference ranges are not reported, since discordance with absolute values may lead to misinterpretation of CBC data. Current Interpretive Data was last revised on 2017. Blood 12/27/2024 9:13 AM CDT 12/27/2024 10:37 AM CDT us Dorothea Cecy [place] MANIPULATOR OPERATOR LAB BLOOD ORDERABLES Krystyna l Result Performing Organization Address [facility] Co de Phone Number [facility] Department [place] [address] * (ABNORMAL) Comprehensive metabolic panel, without glucose (Outreach) (12/27/2024 9:13 AM CDT) Pathologist [facility] Sodium 136 135 - 145 mmol/L Potassium, pl 2.9(L) 3.3 - 4.9 mmol/L [facility] Chloride 98 97 - 110 mmol/L [facility] CO2 24 22 - 32 mmol/L [facility] Anion gap 14 2 - 15 mmol/L [facility] BUN 9 6 - 25 mg/dL [facility] Creatinine 0.64 0.60 - 1.10 mg/dL [facility] Calcium 9.7 8.5 - 10.3 mg/dL [facility] Protein, pl 8.2 6.5 - 8.5 g/dL [facility] Albumin 4.2 3.5 - 5.0 g/dL [facility] Bilirubin, total 0.7 0.1 - 1.2 mg/dL [facility] Alk phos 175(H) 40 - 130 Units/L [facility] AST 51(H) 10 - 45 Units/L [facility] ALT 25 7 - 45 Units/L [facility] Blood 12/27/2024 9:13 AM CDT 12/27/2024 10:38 AM CDT Dorothea Stephen MANIPULATOR OPERATOR LAB BLOOD ORDERABLES Krystyna l Result [facility] Department [place] [address] * (ABNORMAL) CBC with auto differential (12/27/2024 9:13 AM CDT) Pathologist [facility] WBC 5.93 3.80 - 9.90 K/cumm Hgb 13.9 11.9 - 15.5 g/dL [facility] Hct 40.1 35.6 - 45.5 % [facility] Plt 138(L) 150 - 400 K/cumm [facility] MPV 11.4 9.1 - 12.3 fL [facility] RBC 4.23 3.90 - 5.20 M/cumm [facility] MCV 94.8 81.3 - 96.4 fL [facility] MCH 32.9 27.1 - 33.3 pg [facility] MCHC 34.7 32.3 - 35.7 g/dL [facility] RDW CV 13.0 11.1 - 14.9 % [facility] RDW SD 45.3 35.7 - 48.1 fL [facility] NRBC abs 0.00 0.00 - 0.01 K/cumm [facility] Blood 12/27/2024 9:13 AM CDT 12/27/2024 10:37 AM CDT Dorothea Stephen NP LAB BLOOD ORDERABLES Krystyna l Result Performing Organization Address City/[facility]/ZIP Co de Phone Number [facility] Department [place] [address] * Magnesium (12/27/2024 9:13 AM CDT) Magnesium 1.9 1.4 - 2.5 mg/dL Blood 12/27/2024 9:13 AM CDT 12/27/2024 10:50 AM CDT Mo Villatoro MD LAB BLOOD ORDERABLES Final Resul t [facility] [place] [employer] [address] * Blood culture Blood (12/27/2024 9:05 AM CDT) Report Final Report: No growth Blood 12/27/2024 9:05 AM CDT 12/27/2024 11:47 AM CDT Narrative [facility] - 12/31/2024 12:00 PM CDT Specimen received [...] performance characteristics have been verified by the [facility] Microbiology [facility]. For questions about this culture, contact the Microbiology Laboratory at [phone]. Interpretive data was last revised on 24. Dorothea Stephen NP LAB MICROBIOLOGY - GENERA L ORDERABLES Final Result [facility] Department [place] [address] * Blood culture Blood (12/27/2024 9:05 AM CDT) Report Final Report: No growth Blood 12/27/2024 9:05 AM CDT 12/27/2024 11:47 AM CDT Narrative [facility] - 12/31/2024 12:00 PM CDT Specimen received [...] performance characteristics have been verified by the [facility]biology [facility]. For questions about this culture, contact the Microbiology Laboratory at [phone]. Interpretive data was last revised on 24. us Dorothea Stephen NP LAB MICROBIOLOGY - GENERA L ORDERABLES Final Result Performing Organization Address [facility] de Phone Number [facility] Department [place] [address] * (ABNORMAL) Cystatin C (11/28/2024 10:45 AM CDT) Pathologist [facility] Cystatin C 1.23(H) 0.60 - 1.20 mg/L [...] revised on 2020. Testing performed by: [facility], [facility], [place]., [address] Blood 11/28/2024 10:4 5 AM CDT 11/28/2024 12:03 PM CDT us Pieter Wynn MD LAB BLOOD ORDERABLES Final Resu lt Performing Organization Address [facility] Co de Phone Number [facility] [place] [address] * eGFR (11/27/2024 9:44 PM CDT) Pathologist [facility] eGFR >90 >=60 mL/min/1. 73 m2 Comment: [...] MD LAB BLOOD ORDERABLES Krystyna meyers Result [facility] Department [place] [address] * (ABNORMAL) Differential, auto (11/27/2024 9:44 PM CDT) Pathologist [facility] Neutrophil abs 2.70 1.50 - 6.50 K/cumm Imm gran abs 0.03 0.00 - 0.10 K/cumm [facility] Lymphocyte abs 2.90 0.80 - 3.30 K/cumm [facility] Monocyte abs 0.50 0.20 - 0.80 K/cumm [facility] Eosinophil abs 0.13 0.00 - 0.50 K/cumm [facility] Basophil abs 0.13(H) 0.00 - 0.10 K/cumm [facility] Neutrophil pct 42.3 % [facility] Comment: Interpretive Data Percent cell count reference ranges are not reported, since discordance with absolute values may lead to misinterpretation of CBC data. Current Interpretive Data was last revised on 2017. Imm gran pct 0.5 % [facility] Comment: Interpretive Data Percent cell count reference ranges are not reported, since discordance with absolute values may lead to misinterpretation of CBC data. Current Interpretive Data was last revised on 2017. Lymphocyte pct 45.4 % [facility] Comment: Interpretive Data Percent cell count reference ranges are not reported, since discordance with absolute values may lead to misinterpretation of CBC data. Current Interpretive Data was last revised on 2017. Monocyte pct 7.8 % [facility] Comment: Interpretive Data Percent cell count reference ranges are not reported, since discordance with absolute values may lead to misinterpretation of CBC data. Current Interpretive Data was last revised on 2017. Eosinophil pct 2.0 % [facility] Comment: Interpretive Data Percent cell count reference ranges are not reported, since discordance with absolute values may lead to misinterpretation of CBC data. Current Interpretive Data was last revised on 2017. Basophil pct 2.0 % [facility] Comment: Interpretive Data Percent cell count reference ranges are not reported, since discordance with absolute values may lead to misinterpretation of CBC data. Current Interpretive Data was last revised on 2017. Blood 11/27/2024 9:44 PM CDT 11/27/2024 10:41 PM CDT us Lee Elena MD LAB BLOOD ORDERABLES Krystyna l Result [facility] Department [place] [address] * (ABNORMAL) CBC with auto differential (11/27/2024 9:44 PM CDT) WBC 6.39 3.80 - 9.90 K/cumm Hgb 10.5(L) 11.9 - 15.5 g/dL [facility] Hct 32.5(L) 35.6 - 45.5 % [facility] Plt 419(H) 150 - 400 K/cumm [facility] MPV 9.3 9.1 - 12.3 fL [facility] RBC 3.10(L) 3.90 - 5.20 M/cumm [facility] MCV 104.8(H) 81.3 - 96.4 fL [facility] MCH 33.9(H) 27.1 - 33.3 pg [facility] MCHC 32.3 32.3 - 35.7 g/dL [facility] RDW CV 18.6(H) 11.1 - 14.9 % [facility] RDW SD 71.7(H) 35.7 - 48.1 fL [facility] NRBC abs 0.00 0.00 - 0.01 K/cumm [facility] Blood 11/27/2024 9:44 PM CDT 11/27/2024 10:41 PM CDT us Lee Elena MD LAB BLOOD ORDERABLES Krystyna l Result [facility] Department [place] [address] * (ABNORMAL) Vitamin D 25 hydroxy (11/27/2024 9:44 PM CDT) [facility] Vitamin D 25-OH 27(L) 30 - 80 ng/mL Blood 11/27/2024 9:44 PM CDT 11/27/2024 10:41 PM CDT us Pieter Wynn MD LAB BLOOD ORDERABLES Final Resu lt [facility] [place] [address] * Protime-INR (11/27/2024 9:44 PM CDT) PT 10.2 9.7 - 13.0 sec INR 0.95 0.90 - 1.20 [facility] Comment: Interpretive data Oral anticoagulant therapeutic ranges: Venous thromboembolism prophylaxis or treatment: 2.0-3.0 CARDIOLOGY Standard range: 2.0-3.0 High-intensity range: 2.5-3.5 Refer to indication-specific guidelines for appropriate target ranges for prosthetic heart valve replacement. Current interpretive data was last revised on 2019. Blood 11/27/2024 9:44 PM CDT 11/27/2024 10:45 PM CDT Lee Elena MD LAB BLOOD ORDERABLES Krystyna l Result Performing Organization Address City/[facility] Co de Phone Number [facility] [employer] [place] [address] * (ABNORMAL) Phosphorus (11/27/2024 9:44 PM CDT) Pathologist [facility] Phosphorus, pl 6.6(H) 2.3 - 4.5 mg/dL Blood 11/27/2024 9:44 PM CDT 11/27/2024 10:41 PM CDT Lee Elena MD LAB BLOOD ORDERABLES Krystyna l Result Performing Organization Address [facility] Co de Phone Number [facility] [place] [employer] [place] [address] * Magnesium (11/27/2024 9:44 PM CDT) [facility] Magnesium 1.6 1.4 - 2.5 mg/dL Blood 11/27/2024 9:44 PM CDT 11/27/2024 10:41 PM CDT Lee Elena MD LAB BLOOD ORDERABLES Krystyna l Result Performing Organization Address City/[facility] Co de Phone Number [facility] Department [place] [address] * (ABNORMAL) Hepatic function panel (11/27/2024 9:44 PM CDT) [facility] Bilirubin, total 0.4 0.1 - 1.2 mg/dL Bilirubin, direct 0.2 0.1 - 0.3 mg/dL [facility] Protein, pl 7.3 6.5 - 8.5 g/dL [facility] Albumin 3.4(L) 3.5 - 5.0 g/dL [facility] Alk phos 133(H) 40 - 130 Units/L [facility] ALT 17 7 - 45 Units/L [facility] AST 36 10 - 45 Units/L [facility] Blood 11/27/2024 9:44 PM CDT 11/27/2024 10:41 PM CDT Lee Elena MD LAB BLOOD ORDERABLES Krystyna meyers Result [facility] Department [place] [address] * (ABNORMAL) Basic metabolic panel (11/27/2024 9:44 PM CDT) [facility] Sodium 139 135 - 145 mmol/L Potassium, pl 4.3 3.3 - 4.9 mmol/L [facility] Chloride 101 97 - 110 mmol/L [facility] CO2 31 22 - 32 mmol/L [facility] Anion gap 7 2 - 15 mmol/L [facility] BUN 18 6 - 25 mg/dL [facility] Creatinine 0.50(L) 0.60 - 1.10 mg/dL [facility] Glucose 99 70 - 199 mg/dL [facility] Comment: Interpretive Data Fasting glucose >/= 126 [...] Calcium 10.0 8.5 - 10.3 mg/dL [facility] Blood 11/27/2024 9:44 PM CDT 11/27/2024 10:41 PM CDT Lee Elena MD LAB BLOOD ORDERABLES Krystyna l Result Performing Organization Address City/[facility]/ZIP Co de Phone Number [facility] [place] [employer] [place] [address] * eGFR (11/26/2024 9:38 PM CDT) eGFR [...] ORDERABLES Krystyna l Result Performing Organization Address City/[facility]/ZIP Co de Phone Number [facility] Department [place] [employer] [address] * (ABNORMAL) Differential, auto (11/26/2024 9:38 PM CDT) Neutrophil abs 2.02 1.50 - 6.50 K/cumm Imm gran abs 0.03 0.00 - 0.10 K/cumm [facility] Lymphocyte abs 3.04 0.80 - 3.30 K/cumm [facility] Monocyte abs 0.56 0.20 - 0.80 K/cumm [facility] Eosinophil abs 0.10 0.00 - 0.50 K/cumm [facility] Basophil abs 0.11(H) 0.00 - 0.10 K/cumm [facility] Neutrophil pct 34.4 % [facility] Comment: Interpretive Data Percent cell count reference ranges are not reported, since discordance with absolute values may lead to misinterpretation of CBC data. Current Interpretive Data was last revised on 2017. Imm gran pct 0.5 % [facility] Comment: Interpretive Data Percent cell count reference ranges are not reported, since discordance with absolute values may lead to misinterpretation of CBC data. Current Interpretive Data was last revised on 2017. Lymphocyte pct 51.9 % [facility] Comment: Interpretive Data Percent cell count reference ranges are not reported, since discordance with absolute values may lead to misinterpretation of CBC data. Current Interpretive Data was last revised on 2017. Monocyte pct 9.6 % [facility] Comment: Interpretive Data Percent cell count reference ranges are not reported, since discordance with absolute values may lead to misinterpretation of CBC data. Current Interpretive Data was last revised on 2017. Eosinophil pct 1.7 % [facility] Comment: Interpretive Data Percent cell count reference ranges are not reported, since discordance with absolute values may lead to misinterpretation of CBC data. Current Interpretive Data was last revised on 2017. Basophil pct 1.9 % [facility] Comment: Interpretive Data Percent cell count reference ranges are not reported, since discordance with absolute values may lead to misinterpretation of CBC data. Current Interpretive Data was last revised on 2017. Blood 11/26/2024 9:38 PM CDT 11/26/2024 10:36 PM CDT Lee Elena MD LAB BLOOD ORDERABLES Krystyna mira Result Performing Organization Address [facility] Co de Phone Number [facility] Department [place] [address] * (ABNORMAL) CBC with auto differential (11/26/2024 9:38 PM CDT) Pathologist [facility] WBC 5.86 3.80 - 9.90 K/cumm Hgb 9.7(L) 11.9 - 15.5 g/dL [facility] Hct 29.7(L) 35.6 - 45.5 % [facility] Plt 398 150 - 400 K/cumm [facility] MPV 9.2 9.1 - 12.3 fL [facility] RBC 2.87(L) 3.90 - 5.20 M/cumm [facility] MCV 103.5(H) 81.3 - 96.4 fL [facility] MCH 33.8(H) 27.1 - 33.3 pg [facility] MCHC 32.7 32.3 - 35.7 g/dL [facility] RDW CV 18.7(H) 11.1 - 14.9 % [facility] RDW SD 71.5(H) 35.7 - 48.1 fL [facility] NRBC abs 0.00 0.00 - 0.01 K/cumm [facility] Blood 11/26/2024 9:38 PM CDT 11/26/2024 10:36 PM CDT Lee Elena MD LAB BLOOD ORDERABLES Krystyna meyers Result Performing Organization Address City/[facility]/ZIP Co de Phone Number [facility] [place] [address] * (ABNORMAL) Protime-INR (11/26/2024 9:38 PM CDT) PT 9.5(L) 9.7 - 13.0 sec INR 0.88(L) 0.90 - 1.20 [facility] Comment: Interpretive data Oral anticoagulant therapeutic ranges: Venous thromboembolism prophylaxis or treatment: 2.0-3.0 CARDIOLOGY Standard range: 2.0-3.0 High-intensity range: 2.5-3.5 Refer to indication-specific guidelines for appropriate target ranges for prosthetic heart valve replacement. Current interpretive data was last revised on 2019. Blood 11/26/2024 9:38 PM CDT 11/26/2024 10:43 PM CDT Lee Elena MD LAB BLOOD ORDERABLES Krystyna l Result Performing Organization Address City/[facility] Co de Phone Number [facility] [employer] [place] [address] * (ABNORMAL) Phosphorus (11/26/2024 9:38 PM CDT) Phosphorus, pl 5.7(H) 2.3 - 4.5 mg/dL Blood 11/26/2024 9:38 PM CDT 11/26/2024 10:42 PM CDT Result [facility] Lee Elena MD LAB BLOOD ORDERABLES Krystyna l Result Performing Organization Address [facility] Co de Phone Number [facility] [employer] [place] [address] * Magnesium (11/26/2024 9:38 PM CDT) Magnesium 2.1 1.4 - 2.5 mg/dL Blood 11/26/2024 9:38 PM CDT 11/26/2024 10:42 PM CDT Lee Elena MD LAB BLOOD ORDERABLES Krystyna l Result Performing Organization Address City/[facility] Co de Phone Number [facility] [place] [place] [address] * (ABNORMAL) Hepatic function panel (11/26/2024 9:38 PM CDT) [facility] Bilirubin, total 0.3 0.1 - 1.2 mg/dL Bilirubin, direct 0.2 0.1 - 0.3 mg/dL [facility] Protein, pl 6.5 6.5 - 8.5 g/dL [facility] Albumin 2.8(L) 3.5 - 5.0 g/dL [facility] Alk phos 132(H) 40 - 130 Units/L [facility] ALT 17 7 - 45 Units/L [facility] AST 38 10 - 45 Units/L [facility] Blood 11/26/2024 9:38 PM CDT 11/26/2024 10:42 PM CDT Lee Elena MD LAB BLOOD ORDERABLES Krystyna l Result Performing Organization Address City/State/[facility] Co de Phone Number [facility] Department [place] [address] * (ABNORMAL) Basic metabolic panel (11/26/2024 9:38 PM CDT) [facility] Sodium 141 135 - 145 mmol/L Potassium, pl 4.1 3.3 - 4.9 mmol/L [facility] Chloride 101 97 - 110 mmol/L [facility] CO2 29 22 - 32 mmol/L [facility] Anion gap 11 2 - 15 mmol/L [facility] BUN 15 6 - 25 mg/dL [facility] Creatinine 0.54(L) 0.60 - 1.10 mg/dL [facility] Glucose 89 70 - 199 mg/dL [facility] Comment: Interpretive Data Fasting glucose >/= 126 [...] Calcium 9.1 8.5 - 10.3 mg/dL [facility] Blood 11/26/2024 9:38 PM CDT 11/26/2024 10:42 PM CDT us Lee Elena MD LAB BLOOD ORDERABLES Krystyna mira Result [facility] [place] [address] * TRANSTHORACIC ECHO (TTE) LIMITED/FOLLOW UP W LTD DOPPLER/CF W CONTRAST (11/26/2024 1:54 PM CDT) Estimated EF 55-60 % CONS SCIMAGE Anatomical Region Laterality Modality Ultrasound 11/26/2024 1:05 PM CDT Narrative 11/26/2024 2:37 PM CDT [facility] [place] [address] Transthoracic Echocardiographic Report Patient Name: HAYLEY LEÓN L : 1990 (34y 9m) Gender: F Study Date: 11/26/2024 01:05:04 PM Ht(Inch): 61 Wt(Lb): 98.1 BSA: 1.38 Range Mechanic: Lise De Anda Location: [id number] Order Provider: PIETER WYNN Heart Rate: 72 [...] Procedure Note Jim Malloy MD - 11/26/2024 [facility] [place] [address] Transthoracic Echocardiographic Report Patient Name: HAYLEY LEÓN L : 1990 (34y 9m) Gender: F Study Date: 11/26/2024 01:05:04 PM Ht(Inch): 61 Wt(Lb): 98.1 BSA: 1.38 Range Mechanic: Lise De Anda Location: [id number] Order Provider:PIETER WYNN Heart Rate: 72 BMI: [...] ORDERABLES - DEVICE Fi nal Result [facility] Department [place] [address] * eGFR (11/25/2024 9:19 PM CDT) [...] MD LAB BLOOD ORDERABLES Krystyna meyers Result [facility] Department [place] [address] * Differential, auto (11/25/2024 9:19 PM CDT) Neutrophil abs 1.90 1.50 - 6.50 K/cumm Imm gran abs 0.02 0.00 - 0.10 K/cumm [facility] Lymphocyte abs 2.86 0.80 - 3.30 K/cumm [facility] Monocyte abs 0.53 0.20 - 0.80 K/cumm [facility] Eosinophil abs 0.11 0.00 - 0.50 K/cumm [facility] Basophil abs 0.09 0.00 - 0.10 K/cumm [facility] Neutrophil pct 34.5 % [facility] Comment: Interpretive Data Percent cell count reference ranges are not reported, since discordance with absolute values may lead to misinterpretation of CBC data. Current Interpretive Data was last revised on 2017. Imm gran pct 0.4 % [facility] Comment: Interpretive Data Percent cell count reference ranges are not reported, since discordance with absolute values may lead to misinterpretation of CBC data. Current Interpretive Data was last revised on 2017. Lymphocyte pct 51.9 % [facility] Comment: Interpretive Data Percent cell count reference ranges are not reported, since discordance with absolute values may lead to misinterpretation of CBC data. Current Interpretive Data was last revised on 2017. Monocyte pct 9.6 % [facility] Comment: Interpretive Data Percent cell count reference ranges are not reported, since discordance with absolute values may lead to misinterpretation of CBC data. Current Interpretive Data was last revised on 2017. Eosinophil pct 2.0 % [facility] Comment: Interpretive Data Percent cell count reference ranges are not reported, since discordance with absolute values may lead to misinterpretation of CBC data. Current Interpretive Data was last revised on 2017. Basophil pct 1.6 % [facility] Comment: Interpretive Data Percent cell count reference ranges are not reported, since discordance with absolute values may lead to misinterpretation of CBC data. Current Interpretive Data was last revised on 2017. Blood 11/25/2024 9:19 PM CDT 11/25/2024 10:49 PM CDT Lee Elena MD LAB BLOOD ORDERABLES Krystyna meyers Result [facility] Department [place] [address] * (ABNORMAL) CBC with auto differential (11/25/2024 9:19 PM CDT) Pathologist [facility] WBC 5.51 3.80 - 9.90 K/cumm Hgb 10.2(L) 11.9 - 15.5 g/dL [facility] Hct 31.9(L) 35.6 - 45.5 % [facility] Plt 466(H) 150 - 400 K/cumm [facility] MPV 9.4 9.1 - 12.3 fL [facility] RBC 3.06(L) 3.90 - 5.20 M/cumm [facility] MCV 104.2(H) 81.3 - 96.4 fL [facility] MCH 33.3 27.1 - 33.3 pg [facility] MCHC 32.0(L) 32.3 - 35.7 g/dL [facility] RDW CV 19.1(H) 11.1 - 14.9 % [facility] RDW SD 72.8(H) 35.7 - 48.1 fL [facility] NRBC abs 0.00 0.00 - 0.01 K/cumm [facility] Blood 11/25/2024 9:19 PM CDT 11/25/2024 10:49 PM CDT Lee Elena MD LAB BLOOD ORDERABLES Krystyna l Result Performing Organization Address [facility] de Phone Number [facility] [employer] [place], [place] [id number] * Protime-INR (11/25/2024 9:19 PM CDT) PT 10.0 9.7 - 13.0 sec INR 0.93 0.90 - 1.20 [facility] Comment: Interpretive data Oral anticoagulant therapeutic ranges: Venous thromboembolism prophylaxis or treatment: 2.0-3.0 CARDIOLOGY Standard range: 2.0-3.0 High-intensity range: 2.5-3.5 Refer to indication-specific guidelines for appropriate target ranges for prosthetic heart valve replacement. Current interpretive data was last revised on 2019. Blood 11/25/2024 9:19 PM CDT 11/25/2024 10:46 PM CDT Lee Elena MD LAB BLOOD ORDERABLES Krystyna l Result Performing Organization Address [facility] de Phone Number [facility] [employer] [place] [address] * (ABNORMAL) Phosphorus (11/25/2024 9:19 PM CDT) Phosphorus, pl 5.2(H) 2.3 - 4.5 mg/dL Blood 11/25/2024 9:19 PM CDT 11/25/2024 10:47 PM CDT Lee Elena MD LAB BLOOD ORDERABLES Krystyna l Result Performing Organization Address City/[facility] Co de Phone Number [facility] Department [place] [address] * Magnesium (11/25/2024 9:19 PM CDT) Pathologist [facility] Magnesium 1.6 1.4 - 2.5 mg/dL Blood 11/25/2024 9:19 PM CDT 11/25/2024 10:47 PM CDT Lee Elena MD LAB BLOOD ORDERABLES Krystyna l Result Performing Organization Address [facility] de Phone Number [facility] Department [place] [address] * (ABNORMAL) Hepatic function panel (11/25/2024 9:19 PM CDT) Bilirubin, total 0.4 0.1 - 1.2 mg/dL Bilirubin, direct 0.2 0.1 - 0.3 mg/dL [facility] Protein, pl 6.8 6.5 - 8.5 g/dL [facility] Albumin 3.0(L) 3.5 - 5.0 g/dL [facility] Alk phos 142(H) 40 - 130 Units/L [facility] ALT 16 7 - 45 Units/L [facility] AST 35 10 - 45 Units/L [facility] Blood 11/25/2024 9:19 PM CDT 11/25/2024 10:47 PM CDT Lee Elena MD LAB BLOOD ORDERABLES Krystyna l Result Performing Organization Address [facility] Co de Phone Number [facility] Department [place] [address] * (ABNORMAL) Basic metabolic panel (11/25/2024 9:19 PM CDT) Pathologist [facility] Sodium 143 135 - 145 mmol/L Potassium, pl 4.3 3.3 - 4.9 mmol/L [facility] Chloride 104 97 - 110 mmol/L [facility] CO2 29 22 - 32 mmol/L [facility] Anion gap 10 2 - 15 mmol/L [facility] BUN 16 6 - 25 mg/dL [facility] Creatinine 0.46(L) 0.60 - 1.10 mg/dL [facility] Glucose 99 70 - 199 mg/dL [facility] Comment: Interpretive Data Fasting glucose >/= 126 [...] 2022. Calcium 9.5 8.5 - 10.3 mg/dL [facility] Blood 11/25/2024 9:19 PM CDT 11/25/2024 10:47 PM CDT Lee Elena MD LAB BLOOD ORDERABLES Krystyna meyers Result [facility] Department [place] [address] * Hepatitis panel, acute Blood (11/03/2024 2:31 PM CDT) [facility] Hep A IgM Nonreactive Nonreactive Hep B core IgM Nonreactive Nonreactive [facility] Hep C Ab Nonreactive Nonreactive [facility] Comment:Antibodies to HCV no t detected. Does NOT exclude the possibility of recent exposure to HCV. Current interpretive data was last revised on 22 HepBsAg Nonreactive Nonreactive [facility] Blood 11/03/2024 2:31 PM CDT 11/03/2024 2:38 PM CDT Mar George MD LAB MICROBIOLOGY - GENERAL ORDERABLES Final Result [facility] Department [place] [address] * THINPREP TIS PAP REFLEX HPV mRNA E6/E7, CHLAMYDIA/N.GONORRHOEAE (09/14/2016 12:56 PM MANUFACTURED BUILDINGS SUPERVISOR) CLINICAL INFORMATION [facility] HISTORICAL RESULTS Comment: LMP: [facility] HISTORICAL RESULTS PREV. PAP: [facility] HISTORICAL RESULTS Comment:2011 PREV. BX: [facility] HISTORICAL RESULTS Comment:UNKNOWN SOURCE: [facility] - [facility] HISTORICAL RESULTS Comment:Cervix, Endocervix STATEMENT OF ADEQUACY: [facility] HISTORICAL RESULTS Comment:Satisfactory for savana luation. Endocervical/transformation zone component present. INTERPRETATION/RES ULT: [facility] HISTORICAL RESULTS Comment:Negative for intraep ithelial lesion or malignancy. COMMENT: [facility] HISTORICAL RESULTS Comment:This Pap test has be en evaluated with computer assisted technology. RIVER EXPEDITION GUIDE: [facility] HISTORICAL RESULTS Comment:YQ, CT(ASCP) CT scre ening location: [place] [address] [place] [address] C. trachomatis RNA NOT DETECTED NOT DETECTED [facility] HISTORICAL RESULTS N. gonorrhoeae RNA NOT DETECTED NOT DETECTED [facility] HISTORICAL RESULTS COMMENT [facility] HISTORICAL RESULTS Comment: This test was performed using the APTIMA COMBO2 Assay ([employer] The analytical performance characteristics of this assay, when used to test SurePath specimens have been determined by [employer]. 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
--- OUTSIDE RECORDS SUMMARY | 2025-02-25 21:41 | XMS_ITS | Encounter Summary ---
Author Organization [facility] Care Team Providers Care Marine Cargo Specialist Name Role Phone Christian Merritt MD Primary Care Provider [phone] Mo Mitchell MD Primary Care Provider [phone] Neeta Ott RN Unavailable [phone] Encounter Details Date Type Department Care Team (Latest Contact Info) Description 12/09/2016 Orders Only [facility] CLINCONV Provider, MD Serge [address] [place] [address] Social History Tobacco Use Types Packs/Day Years Used Date Smoking Tobacco: Never Assessed Comments Unknown Sex and Gender Information Value Date Recorded Sex Assigned at Not on file Legal Sex Female 8:06 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
[2025-02-25 21:43] LABS: Add Urine Microscopic? YES; Appearance Urine Turbid (Clear)
--- NOTE | 2025-02-25 22:32 | ED.ARRPALP ---
HPI - Arrhythmia/Palpitations General Chief Complaint: Arrhythmia/Palpitations Stated Complaint: shaky, N/V/D Time Seen by Provider: 02/25/25 21:22 Source: patient Mode of arrival: ambulatory Limitations: no limitations History of Present Illness HPI narrative: Patient presents with report of feeling shaky as well as having nausea, vomiting, and diarrhea. She endorses right-sided chest pain with palpitations. She also notes some facial tingling. Her symptoms are associated with low abdominal pain. She reports that her vision briefly went black in bilateral eyes and all vision disappeared but then returned. She reports feeling dizzy and that she experiences a spinning sensation and feels like she might pass out though does not explicitly endorse lightheadedness. She has been experiencing some tinnitus. No ear pain or hearing loss. She has a PEG tube and she uses both this as well as p.o. her symptoms have been going on for few days. She describes a mild headache, more like a fullness. She has a history of cardiac arrest. 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 She now wears a LifeVest. She had been at [facility]. She reports hitting alcohol sometimes but not daily and has never undergone withdrawals. She denies any fevers but she is having chills. She has been coughing and feels short of breath, like she can not catch her breath. She is supposed to be on Xarelto but notes that she has been missing doses of her anticoagulation due to how she has been feeling. No sick contacts. Her last menstrual period was a few days ago. She states that it lasted 3 weeks. She reports bilateral flank pain as well as dysuria and urinary urgency and frequency but without hematuria. No bloody vomit or stool. Cardiac risk factors HTN: No HLD: No DM: No Obese: No Smoker: Yes, less than half pack per day Personal history [place]/TIA/CVA: No (though history cardiac arrest) Fam Hx [place] in first degree relative <65yo: Mom <65yo Related Data Home Medications ?Medication ?Instructions ?Recorded ?Confirmed ?Last Taken ?Type ferrous sulfate 325 mg (65 mg 325 mg PO BID 03/28/24 02/26/25 02/24/25 History iron) tablet,delayed release folic acid 1 mg tablet 1 mg feeding tube DAILY 03/28/24 02/26/25 02/24/25 History megestrol 20 mg tablet 20 mg feeding tube BID 03/28/24 02/26/25 02/24/25 History multivitamin with folic acid 400 1 tablet PO QAM 03/28/24 02/26/25 02/24/25 History mcg tablet (Thera) thiamine HCl (vitamin B1) 100 mg 100 mg feeding tube DAILY 03/28/24 02/26/25 02/24/25 History tablet vitamin B complex (Vitamins B 1 cap feeding tube QAM 03/28/24 02/26/25 02/24/25 History Complex capsule) lactose-reduced food with fiber See Rx Instructions .Route .COMPLEX 08/07/24 02/26/25 01/26/25 History 0.06 gram-1.5 kcal/mL oral liquid (Jevity 1.5 Chriss) buspirone 15 mg tablet 15 mg feeding tube TID 01/08/25 02/26/25 02/24/25 History cyanocobalamin (vitamin B-12) 1,000 mcg feeding tube MONTHLY 01/08/25 02/26/25 02/12/25 History 1,000 mcg tablet nicotine 14 mg/24 hr daily 1 patch transdermal Q24H 01/08/25 02/26/25 01/07/25 History transdermal patch olanzapine 5 mg tablet 5 mg feeding tube QPM 01/08/25 02/26/25 02/24/25 History oxycodone 5 mg tablet 5 mg feeding tube Q8H PRN pain 01/08/25 02/26/25 02/24/25 History apixaban 5 mg tablet (Eliquis) 5 mg PO BID 02/13/25 02/26/25 02/10/25 History ergocalciferol (vitamin D2) 1,250 1,250 mcg feeding tube WEEKLY 02/13/25 02/26/25 02/15/25 History mcg (50,000 unit) capsule famotidine 20 mg tablet 20 mg PO HS 02/13/25 02/26/25 02/25/25 History magnesium oxide 400 mg (241.3 mg 420 mg feeding tube DAILY 02/13/25 02/26/25 02/24/25 History magnesium) tablet methocarbamol 750 mg tablet 750 mg feeding tube .q4hr 0702/26/25 02/24/25 History nadolol 20 mg tablet 20 mg feeding tube DAILY 02/13/25 02/26/25 02/24/25 History simethicone 80 mg chewable tablet 80 mg feeding tube QID PRN 02/13/25 02/26/25 Unknown History abdominal distention trazodone 50 mg tablet 50 mg feeding tube HS 02/13/25 02/26/25 Unknown History Allergies Allergy/AdvReac Type Severity Reaction Status Date / Time latex Allergy Rash Verified 02/26/25 03:49 melatonin AdvReac Mild chest Verified 02/26/25 03:49 heaviness PMFSH Past Medical History Medical History Cardiac arrest with ventricular fibrillation October 2024 Adrenal insufficiency Depression with anxiety Avoidant/restrictive food intake disorder Cannabis abuse Elevated LFTs Mitral valve prolapse Surgical History Surgical History History of percutaneous endoscopic gastrostomy Family History Family History Mother Heart attack Mitral valve prolapse Grandparent Cancer Grandparent Mitral valve prolapse Social History Social History Social History: Surrogate medical decision maker: Jorge Luis Centeno, significant other. Code status: Full code. Smoking packs per day: 0.5 Smoking cigarettes per day: 10.0 Years smoked: 20 Smoking pack-years: 10.00 Smoking status: Current every day smoker Tobacco type: cigarettes Alcohol intake: current Drinks per week: 2 Alcohol use details: States she drinks 1 pint a week Substance use: former Substance use type: marijuana Other substance usage details: weekly Last use: couple days agp Do You Feel Safe in your Home?: Yes Lack of Transportation: No Lack of Food: Never True Current Housing: I Have Housing Concerned About Future Housing: No Difficulty Paying Gas/Electric Bills: No Difficulty Paying for Meds: No Currently Unemployed: No Education: Decline to Answer Difficulty w/ Childcare or Family Care: No Living arrangements: with family Additional living arrangements comments: with 7 year old son and fianc? Occupation/Education: unemployed Spiritual care concerns: No Agree to blood products: Yes Exam Narrative: GENERAL: Well-appearing, well-nourished, and in no acute distress. HEAD: Normocephalic, atraumatic. EYES: Non injected, non icteric. Extraocular movements intact with No horizontal or vertical nystagmus. No gaze palsy. ENT: Nares clear, no rhinorrhea or epistaxis. Gross auditory acuity intact. Tacky mucous membranes. NECK: Supple. No meningismus. CHEST: Speaking in full sentences. No respiratory distress. HEART: Regular rate and rhythm. . ABDOMEN: Soft, nondistended. No rigidity or guarding. Not peritoneal. PEG tube. EXTREMITIES: Normal range of motion. No lower extremity edema. SKIN: Warm, dry, no rash. NEURO: No focal deficits. Alert and oriented. Answering questions. Following commands. Normal speech without aphasia or dysarthria. No cerebellar ataxia on [id number] assessment bilaterally. Mildly tremulous throughout. Tongue protrudes midline without deviation although there are tremors, slight fasciculations. PSYCH: Normal mood and affect. Course Vital Signs Vital signs: Vital Signs Temperature 98.2 F 02/25/25 19:15 Pulse Rate 126 H 02/25/25 19:15 Respiratory Rate 18 02/25/25 19:15 Blood Pressure 126/85 02/25/25 19:15 Pulse Oximetry 99 02/25/25 19:15 Oxygen Delivery Room Air 02/25/25 19:15 Temperature 98.3 F 02/26/25 16:00 Pulse Rate 71 02/26/25 16:00 Respiratory Rate 18 02/26/25 16:00 Blood Pressure 106/64 02/26/25 16:00 Pulse Oximetry 98 02/26/25 16:00 Oxygen Delivery Room Air 02/26/25 12:00 MDM - Arrhythmia/Palpitations MDM Narrative Medical decision making narrative: Patient presents with multiple concerns. She has a complex medical history including history of cardiac arrest for which she now wears a Life Vest. She reports that her cardiac arrest was attributed to a blood stream infection causing issues of mass within heart. In the emergency department she is afebrile vital signs notable for tachycardia although with resolution on repeat assessment without interval intervention. Patient's symptoms of dizziness with nausea and vomiting that is described as a spinning/rotational movement does sound possibly vertiginous. GIven this, considered (DIFFERENTIAL DIAGNOSIS) Central causes: infection ( encephalitis, meningitis, cerebritis); vertebrobasilar arterial insufficiency, subclavian steal syndrome, cerebellar or brainstem hemorrhage or infarction, vertebrobasilar migraine, trauma ( temporal bone fracture, post concussive syndrome); tumor (brainstem or cerebellum); MS; temporal lobe epilepsy Peripheral causes: Foreign body, cerumen impaction, acute otitis media, labyrinthitis, benign paroxysmal positional vertigo, Meniere's disease, vestibular neuronitis, perilymphatic fistula, trauma, motion sickness, acoustic neuroma, ototoxic medications test negative. Urinalysis with abnormalities including leukocyte esterase and nitrate but the UA that was performed did not comment on bacteria, WBC, RBC (?). Given that she is having symptoms, reasonable to treat. Urine culture from 04/01/24 grew Kelsiella pneumoniae and Enterobacter cloacae (subsequent Urine Cx with no growth) that were both sensitive to ceftazidime so this is ordered. Given comorbidities, will obtain blood cultures first. Point of care glucose acceptable. Given her prolonged QTc, will need to be cautious with anti medics that are QT prolonging. Will start with famotidine and dexamethasone. Will also give meclizine which may help with the dizziness and has antiemetic properties as well. She has significant hypomagnesemia. IV repletion ordered, will start with 2. Also hypokalemia. Supplementation ordered, will start via feeding tube. She also has hyponatremia, a drop of 8mEq from most recent. Urine labs ordered ('lytes, Cr). Normal renal function. Some abnormal liver function tests. Normocytic anemia and thrombocytopenia, both of these are chronic/stable. BNP only mildly elevated, not to a degree to suggest acute heart failure. Ethanol and dimer normal. Thyroid normal. UDS positive for benzos, cannabinoids, and opiates; had not received any opiates or BZDs in the ED prior to this sample although does have opiates on med list. She is complaining of pain. Morphine ordered. On reassessment at bedside at 1:05 a.m. she reports that her dizziness is improved. She appears better, no longer tremulous. She had been requesting Zofran for her nausea but I did inform her that her QT/QTC is prolonged. We discussed the need for admission given electrolytes and that as replete, hopefully will start feeling better. Discussed patient with on-call hospitalist Dr. King who request that an additional 2 of magnesium the ordered for a total of 4. Notes that she will obtain repeat labs before administering or potassium. Requests a repeat EKG now the patient is less tremulous. Patient will require IMU and telemetry. Differential Diagnosis Differential diagnosis: Likely palpitations, anxiety, sinus tachycardia, artial fibrillation, artial flutter, ventricular premature beats, supraventricular tachycardia, ventricular tachycardia, WPW and other (; electrolyte abnormalities, symptomatic anemia, rhabdomyolysis, thyroid dysfunction, infection such as pneumonia acute viral syndrome, urinary tract infection/pyelonephritis; PE ; cannabinoid hyperemesis; thrombic emboli; adrenal insufficiency) Lab Data Attestation: I reviewed the patient's lab results. 02/26/25 08:09 02/26/25 08:09 Labs: Lab Results 02/25/25 02/25/25 02/25/25 Range/Units 19:29 21:23 21:31 WBC (4.5-10.0) K/mm3 RBC (4.2-5.4) M/mm3 Hgb (12.0-15.0) g/dL Hct (37.0-47.0) % MCV (80-100) fl MCH (26-34) pg MCHC (32-36) g/dl RDW (11.5-14.5) % Plt Count (150-375) k/mm3 MPV (7.4-10.4) fl Immature Gran % (Auto) (0-0.5) % Neut % (Auto) (45.5-73.1) % Lymph % (Auto) (18.3-44.2) % [place] % (Auto) (2.6-8.5) % Eos % (Auto) (0-4.4) % Baso % (Auto) (0.2-1.2) % Lymph # (Auto) (0.9-3.2) K/mm3 [place] # (Auto) (0.1-0.6) K/mm3 Eos # (Auto) (0-0.3) K/mm3 Baso # (Auto) (0.0-0.1) K/mm3 Abs Immat Gran (auto) (0.00-0.031) K/mm3 Absolute Neuts (auto) (1.3-6.7) K/mm3 Absolute Nucleated RBC (0.0-0.012) K/mm3 Nucleated RBC % (0.0-0.2) % D-Dimer (<0.48) ug/mL Sodium (137-145) mmol/L Potassium (3.4-5.0) mmol/L Chloride (98-107) mmol/L Carbon Dioxide (22-30) mmol/L Anion Gap (4-12) mmol/L BUN (7-17) mg/dL Creatinine (0.7-1.0) mg/dL Estim Creat Clear Calc ml/min Estimated GFR (59 - ) Glucose (65-110) mg/dL POC Capillary Glucose 136 H (65-105) mg/dl Calcium (8.4-10.2) mg/dL Magnesium (1.6-2.3) mg/dL Total Bilirubin (0.2-1.3) mg/dL AST (14-36) U/L ALT (6-35) U/L Alkaline Phosphatase (38-126) U/L Total Creatine Kinase (30-135) U/L Troponin I (0.000-0.034) ng/mL NT-Pro-B Natriuret Pep (19.9-100) pg/mL Total Protein (6.3-8.2) g/dL Albumin (3.5-5.1) g/dL TSH (0.465-4.680) uIU/mL Urine Color Dark yellow (Yellow) Urine Appearance Turbid H (Clear) Urine pH 5.5 (5.0-9.0) Ur Specific [place] 1.026 (1.001-1.035) Urine Protein 3+ H (Negative) mg/dL Urine Glucose (UA) Negative (Negative) mg/dL Urine Ketones Trace H (Negative) mg/dL Ur Blood (Man) Trace (Negative) Urine Nitrate Positive H (Negative) Urine Bilirubin 2+ H (Negative) Urine Urobilinogen 1.0 (<2.0) mg/dL Leukocyte Esterase Rfl 1+ H (Negative) BECKY/UL Ur Random Sodium 6 meq/L Urine Creatinine 417.7 mg/dL POC Urine HCG, Qual Negative (Negative) Urine Opiates Screen Positive A (Negative) Urine Methadone Screen Negative (Negative) Ur Barbiturates Screen Negative (Negative) Ur Phencyclidine Scrn Negative (Negative) Ur Amphetamine Screen Negative (Negative) U Benzodiazepines Scrn Positive A (Negative) Urine Cocaine Screen Negative (Negative) U Cannabinoids Screen Positive A (Negative) Ethyl Alcohol (<10) mg/dL Influenza A (RT-PCR) (Negative) Influenza B (RT-PCR) (Negative) RSV (RT-PCR) (Negative) SARS-CoV-2 RNA (RT-PCR) (Negative) 02/25/25 Range/Units 23:02 WBC 6.6 (4.5-10.0) K/mm3 RBC 3.36 L (4.2-5.4) M/mm3 Hgb 11.0 L (12.0-15.0) g/dL Hct 32.5 L (37.0-47.0) % MCV 96.7 (80-100) fl MCH 32.7 (26-34) pg MCHC 33.8 (32-36) g/dl RDW 17.2 H (11.5-14.5) % Plt Count 140 L (150-375) k/mm3 MPV 10.1 (7.4-10.4) fl Immature Gran % (Auto) 0.2 (0-0.5) % Neut % (Auto) 67.0 (45.5-73.1) % Lymph % (Auto) 25.6 (18.3-44.2) % [place] % (Auto) 6.4 (2.6-8.5) % Eos % (Auto) 0.2 (0-4.4) % Baso % (Auto) 0.6 (0.2-1.2) % Lymph # (Auto) 1.68 (0.9-3.2) K/mm3 [place] # (Auto) 0.4 (0.1-0.6) K/mm3 Eos # (Auto) 0.0 (0-0.3) K/mm3 Baso # (Auto) 0.0 (0.0-0.1) K/mm3 Abs Immat Gran (auto) 0.01 (0.00-0.031) K/mm3 Absolute Neuts (auto) 4.4 (1.3-6.7) K/mm3 Absolute Nucleated RBC 0.000 (0.0-0.012) K/mm3 Nucleated RBC % 0.0 (0.0-0.2) % D-Dimer 0.38 (<0.48) ug/mL Sodium 129 L (137-145) mmol/L Potassium 3.0 L (3.4-5.0) mmol/L Chloride 94 L (98-107) mmol/L Carbon Dioxide 26 (22-30) mmol/L Anion Gap 9 (4-12) mmol/L BUN 7 (7-17) mg/dL Creatinine 0.62 L (0.7-1.0) mg/dL Estim Creat Clear Calc 82 ml/min Estimated GFR > 60 (59 - ) Glucose 106 (65-110) mg/dL POC Capillary Glucose (65-105) mg/dl Calcium 9.2 (8.4-10.2) mg/dL Magnesium 1.0 L (1.6-2.3) mg/dL Total Bilirubin 2.0 H (0.2-1.3) mg/dL AST 75 H (14-36) U/L ALT 34 (6-35) U/L Alkaline Phosphatase 152 H (38-126) U/L Total Creatine Kinase 26 L (30-135) U/L Troponin I < 0.012 (0.000-0.034) ng/mL NT-Pro-B Natriuret Pep 165 H (19.9-100) pg/mL Total Protein 7.5 (6.3-8.2) g/dL Albumin 4.3 (3.5-5.1) g/dL TSH 1.400 (0.465-4.680) uIU/mL Urine Color (Yellow) Urine Appearance (Clear) Urine pH (5.0-9.0) Ur Specific [place] (1.001-1.035) Urine Protein (Negative) mg/dL Urine Glucose (UA) (Negative) mg/dL Urine Ketones (Negative) mg/dL Ur Blood (Man) (Negative) Urine Nitrate (Negative) Urine Bilirubin (Negative) Urine Urobilinogen (<2.0) mg/dL Leukocyte Esterase Rfl (Negative) BECKY/UL Ur Random Sodium meq/L Urine Creatinine mg/dL POC Urine HCG, Qual (Negative) Urine Opiates Screen (Negative) Urine Methadone Screen (Negative) Ur Barbiturates Screen (Negative) Ur Phencyclidine Scrn (Negative) Ur Amphetamine Screen (Negative) U Benzodiazepines Scrn (Negative) Urine Cocaine Screen (Negative) U Cannabinoids Screen (Negative) Ethyl Alcohol < 10 (<10) mg/dL Influenza A (RT-PCR) Negative (Negative) Influenza B (RT-PCR) Negative (Negative) RSV (RT-PCR) Negative (Negative) SARS-CoV-2 RNA (RT-PCR) Negative (Negative) Imaging Data Radiologist's impression: IMPRESSION: No focal infiltrate or effusion. ECG Data EKG #1: Attestation: I personally reviewed and interpreted this ECG as follows: ECG completion date: 02/25/25 ECG completion time: 19:25 Interpretation: Significant baseline artifact limits full interpretation. Sinus tachycardia at a rate of 110 beats per minute. MA interval is short at 88 milliseconds. QRS 86. QT/QTC 385/521 therefore prolonged. Questionable depressions in the inferior leads as well as precordial leads. Discharge Plan Discharge Clinical Impression: UTI (urinary tract infection), Shakiness, Hypomagnesemia, Hypokalemia, Hyponatremia, Abnormal LFTs (liver function tests), Normocytic anemia, Thrombocytopenia, Prolonged Q-T interval on ECG Patient Disposition: Still a Patient Condition: Stable Time of Disposition: 01:48
[2025-02-25 23:12] LABS: Hematocrit 32.5 % (37.0-47.0); Hemoglobin 11.0 g/dL (12.0-15.0); Immature Granulocyte Percent A 0.2 % (0-0.5); Lymphocytes Absolute Auto 1.68 K/mm3 (0.9-3.2); Mean Corpuscular HGB Conc 33.8 g/dl (32-36); Mean Corpuscular Hemoglobin 32.7 pg (26-34); Mean Corpuscular Volume 96.7 fl (80-100); Nucleated Red Blood Cells Absolute Auto 0.000 K/mm3 (0.0-0.012); Nucleated Red Blood Cells Perc 0.0 % (0.0-0.2); Platelet Count Result 140 k/mm3 (150-375); Red Blood Count 3.36 M/mm3 (4.2-5.4); White Blood Count 6.6 K/mm3 (4.5-10.0)
[2025-02-25 23:25] LABS: Alanine Aminotransferase 34 U/L (6-35); Albumin Level 4.3 g/dL (3.5-5.1); Alkaline Phosphatase 152 U/L (38-126); Anion Gap 9 mmol/L (4-12); Aspartate Amino Transferase 75 U/L (14-36); Bilirubin,Total 2.0 mg/dL (0.2-1.3); Blood Urea Nitrogen 7 mg/dL (7-17); Calcium 9.2 mg/dL (8.4-10.2); Carbon Dioxide 26 mmol/L (22-30); Chloride 94 mmol/L (98-107); Estimated CRCL calculation 82 ml/min; Estimated Glomerular Filt Rate > 60; Glucose 106 mg/dL (65-110); Magnesium 1.0 mg/dL (1.6-2.3); Potassium 3.0 mmol/L (3.4-5.0); Sodium 129 mmol/L (137-145); Total Protein 7.5 g/dL (6.3-8.2)
[2025-02-25 23:36] LABS: Troponin I < 0.012 ng/mL (0.000-0.034)
[2025-02-25 23:46] LABS: NT Pro B Type Natriuretic Pept 165 pg/mL (19.9-100)
[2025-02-25 23:47] LABS: Creatine Kinase 26 U/L (30-135); Influenza A QL RT-PCR Negative (Negative); Influenza B QL RT-PCR Negative (Negative); RSV RNA, RT-PCR Negative (Negative); SARS-CoV-2 RNA PCR Negative (Negative)
[2025-02-26] VITALS (14 sets, daily range): BP systolic 104–125; BP diastolic 61–89; PULSE 62–100; RESP 16–22; TEMP 36.6–37; O2SAT 98–100; BMI 20.4; BMI 20.7
[2025-02-26] MEDS: FAMOTIDINE 20 MG/2 ML VIAL IV PUSH (00:04)
[2025-02-26] MEDS: SODIUM CHLORIDE 0.9% IV 500 ML 999 ML IV CONT (00:05)
[2025-02-26 00:19] LABS: Thyroid Stimulating Hormone 1.400 uIU/mL (0.465-4.680)
[2025-02-26] MEDS: POTASSIUM CHLORIDE 20 MEQ PACKET (FOR LIQUID) 40 MEQ FEED TUBE (00:37)
[2025-02-26] MEDS: MECLIZINE HCL 12.5 MG TABLET PO (00:41)
[2025-02-26] MEDS: dexAMETHasone SOD PHOS INJ 10 MG/ML 1 ML VIAL IV PUSH (00:41)
[2025-02-26] MEDS: MAGNESIUM SULF 2 GM/WATER 50ML 2 GM/50 ML BAG IVPB ×2 (00:43→02:52)
[2025-02-26 00:44] LABS: Cannabinoid Screen Urine Positive (Negative)
[2025-02-26] MEDS: MORPHINE SULFATE (*CRX) 2 MG/ML INJ IV PUSH (01:18)
[2025-02-26] MEDS: cefTAZidime INJ 1 GM in SODIUM CHLORIDE 0.9% IV 50 ML IVPB ×3 (01:28→18:11)
[2025-02-26] MEDS: NICOTINE (*PBKC) 7 MG PATCH 1 PATCH TRANSDERM (02:16)
--- NOTE | 2025-02-26 03:24 | PC.NURSE ---
This patient, Ester León, was admitted to IMU Room 232-01. Patient/family oriented to hospital policies and general routines including ID bracelet, bed and alarms, visiting hours, pain management, procedures, bathroom and other care routines, personal items, smoking policy, room service/diet, and visiting hours. Information on how to activate the Rapid Response Team has been discussed. Patient/Family are encouraged to report perceived risks to care and to ask questions if they do not understand what they are told or what they should do.
[2025-02-26] MEDS: SODIUM CHLORIDE 0.9% IV 250 ML 100 ML IV CONT (05:30)
[2025-02-26 08:17] LABS: Hematocrit 33.9 % (37.0-47.0); Hemoglobin 11.4 g/dL (12.0-15.0); Immature Granulocyte Percent A 0.3 % (0-0.5); Lymphocytes Absolute Auto 0.40 K/mm3 (0.9-3.2); Mean Corpuscular HGB Conc 33.6 g/dl (32-36); Mean Corpuscular Hemoglobin 33.0 pg (26-34); Mean Corpuscular Volume 98.3 fl (80-100); Nucleated Red Blood Cells Absolute Auto 0.000 K/mm3 (0.0-0.012); Nucleated Red Blood Cells Perc 0.0 % (0.0-0.2); Platelet Count Result 125 k/mm3 (150-375); Red Blood Count 3.45 M/mm3 (4.2-5.4); White Blood Count 3.2 K/mm3 (4.5-10.0)
[2025-02-26 08:37] LABS: Alanine Aminotransferase 34 U/L (6-35); Albumin Level 4.4 g/dL (3.5-5.1); Alkaline Phosphatase 157 U/L (38-126); Anion Gap 10 mmol/L (4-12); Aspartate Amino Transferase 77 U/L (14-36); Bilirubin,Total 1.8 mg/dL (0.2-1.3); Blood Urea Nitrogen 5 mg/dL (7-17); Calcium 9.4 mg/dL (8.4-10.2); Carbon Dioxide 22 mmol/L (22-30); Chloride 101 mmol/L (98-107); Estimated CRCL calculation 85 ml/min; Estimated Glomerular Filt Rate > 60; Glucose 143 mg/dL (65-110); Magnesium 2.7 mg/dL (1.6-2.3); Potassium 4.2 mmol/L (3.4-5.0); Sodium 133 mmol/L (137-145); Total Protein 7.7 g/dL (6.3-8.2)
[2025-02-26] MEDS: FOLIC ACID 1 MG TABLET FEED TUBE (08:58)
[2025-02-26] MEDS: oxyCODONE HCL (*CRX) 5 MG TAB IR FEED TUBE ×2 (08:58→18:10)
[2025-02-26] MEDS: MAGNESIUM OXIDE 400 MG TABLET FEED TUBE (08:58)
[2025-02-26] MEDS: THIAMINE HCL 100 MG TABLET FEED TUBE (08:58)
[2025-02-26] MEDS: MULTIVIT W/ IRON, MINERALS 15 ML LIQUID (*BKC) FEED TUBE (08:59)
[2025-02-26] MEDS: FERROUS SULFATE LIQUID 325 MG/7.4 ML ELIXIR FEED TUBE ×2 (08:59→18:11)
[2025-02-26] MEDS: MEGESTROL ACETATE (*CHEMO) ORAL SUSP 40 MG/ML SYR 20 MG FEED TUBE ×2 (08:59→18:11)
--- NOTE | 2025-02-26 09:06 | ECG_ITS ---
Test Date: 2025-02-26 14:36:14 Measurements Intervals [place] Rate: 63 P: 46 MO: 116 QRS: 50 QRSD: 84 T: 66 QT: 417 QTc: 428 Interpretive Statements SINUS RHYTHM WITH SHORT MO INTERVAL BORDERLINE ST-T WAVE ABNORMALITY- HIGH LATERAL LEADS BASELINE ARTIFACT- I, II, III, AVR, AVL, AVF BORDERLINE ECG Compared to ECG 02/25/2025 19:25:54 HEART RATE HAS DECREASED POSSIBLE ISCHEMIA NO LONGER PRESENT Electronically Signed On 02-26-2025 14:46:13 CDT by Jayme Mcneal D.O.
--- NOTE | 2025-02-26 09:06 | PM.IMHP ---
H&P: HPI History of Present Illness Date/Time: 02/26/25 09:06 Chief Complaint: Abdominal pain nausea vomiting Narrative: This is a 35-year-old female with PMH cardiac arrest secondary to VFib in 10/2024, left ventricular clot, eating disorder status post PEG placement on 11/07/2023, chronic nausea, chronic LFT elevation, marijuana abuse, tobacco abuse depression and anxiety, alcohol use disorder. She presents to [facility] ER on 02/25/2025 complaining of nausea vomiting and diarrhea for a few days. She also has tingling in her face her legs. She has chronic neuropathy she reports she felt like she was going to faint. She has not been taking her medications in the past few days while she has been sick. She has had admission previous very similar to this where her nausea resolved and she improved with fluid and electrolyte resuscitation. On admission her sodium 129, potassium 3.0, magnesium 1.0, proBNP 165, TSH 1.4, urinalysis with positive nitrite, leukocyte esterase, no wbc's or bacteria report. She was given magnesium and potassium replacement, ceftazidime. Dexamethasone, Pepcid, meclizine, morphine, nicotine patch. Review of Systems Review of Systems: All systems reviewed & are unremarkable except as noted in HPI and below (Subjective/HPI) [facility] Past Medical History Medical History Cardiac arrest with ventricular fibrillation October 2024 Adrenal insufficiency Depression with anxiety Avoidant/restrictive food intake disorder Cannabis abuse Elevated LFTs Mitral valve prolapse Surgical History Surgical History History of percutaneous endoscopic gastrostomy Family History Family History Mother Heart attack Mitral valve prolapse Grandparent Cancer Grandparent Mitral valve prolapse Social History Social History Social History: Surrogate medical decision maker: Jorge Luis Centeno, significant other. Code status: Full code. Smoking packs per day: 0.5 Smoking cigarettes per day: 10.0 Years smoked: 20 Smoking pack-years: 10.00 Smoking status: Current every day smoker Tobacco type: cigarettes Alcohol intake: current Drinks per week: 2 Alcohol use details: States she drinks 1 pint a week Substance use: former Substance use type: marijuana Other substance usage details: weekly Last use: couple days agp Do You Feel Safe in your Home?: Yes Lack of Transportation: No Lack of Food: Never True Current Housing: I Have Housing Concerned About Future Housing: No Difficulty Paying Gas/Electric Bills: No Difficulty Paying for Meds: No Currently Unemployed: No Education: Decline to Answer Difficulty w/ Childcare or Family Care: No Living arrangements: with family Additional living arrangements comments: with 7 year old son and fianc? Occupation/Education: unemployed Spiritual care concerns: No Agree to blood products: Yes Meds Home Medications and Allergies Home Medications ?Medication ?Instructions ?Recorded ?Confirmed ?Type ondansetron 8 mg disintegrating 8 mg PO Q8H PRN nausea and 02/08/24 02/26/25 Rx tablet vomiting #90 tabs ferrous sulfate 325 mg (65 mg 325 mg PO BID 03/28/24 02/26/25 History iron) tablet,delayed release folic acid 1 mg tablet 1 mg feeding tube DAILY 03/28/24 02/26/25 History megestrol 20 mg tablet 20 mg feeding tube BID 03/28/24 02/26/25 History multivitamin with folic acid 400 1 tablet PO QAM 03/28/24 02/26/25 History mcg tablet (Thera) thiamine HCl (vitamin B1) 100 mg 100 mg feeding tube DAILY 03/28/24 02/26/25 History tablet vitamin B complex (Vitamins B 1 cap feeding tube QAM 03/28/24 02/26/25 History Complex capsule) lactose-reduced food with fiber See Rx Instructions .Route .COMPLEX 08/07/24 02/26/25 History 0.06 gram-1.5 kcal/mL oral liquid (Jevity 1.5 Chriss) metoclopramide HCl 10 mg tablet 10 mg PO Q6H nausea and vomiting 08/15/24 02/26/25 Rx (Reglan) #120 tabs potassium chloride 10 mEq 10 meq feeding tube DAILY #60 caps 08/15/24 02/26/25 Rx capsule,extended release buspirone 15 mg tablet 15 mg feeding tube TID 01/08/25 02/26/25 History cyanocobalamin (vitamin B-12) 1,000 mcg feeding tube MONTHLY 01/08/25 02/26/25 History 1,000 mcg tablet nicotine 14 mg/24 hr daily 1 patch transdermal Q24H 01/08/25 02/26/25 History transdermal patch olanzapine 5 mg tablet 5 mg feeding tube QPM 01/08/25 02/26/25 History oxycodone 5 mg tablet 5 mg feeding tube Q8H PRN pain 01/08/25 02/26/25 History rivaroxaban 20 mg tablet (Xarelto) 20 mg PO DAILY@1700 #30 tabs 01/12/25 02/26/25 Rx apixaban 5 mg tablet (Eliquis) 5 mg PO BID 02/13/25 02/26/25 History ergocalciferol (vitamin D2) 1,250 1,250 mcg feeding tube WEEKLY 02/13/25 02/26/25 History mcg (50,000 unit) capsule famotidine 20 mg tablet 20 mg PO HS 02/13/25 02/26/25 History magnesium oxide 400 mg (241.3 mg 420 mg feeding tube DAILY 02/13/25 02/26/25 History magnesium) tablet methocarbamol 750 mg tablet 750 mg feeding tube .q4hr 02/13/25 02/26/25 History nadolol 20 mg tablet 20 mg feeding tube DAILY 02/13/25 02/26/25 History simethicone 80 mg chewable tablet 80 mg feeding tube QID PRN 02/13/25 02/26/25 History abdominal distention trazodone 50 mg tablet 50 mg feeding tube HS 02/13/25 02/26/25 History Allergies Allergy/AdvReac Type Severity Reaction Status Date / Time latex Allergy Rash Verified 02/26/25 03:49 melatonin AdvReac Mild chest Verified 02/26/25 03:49 heaviness Vital Signs Vital Signs - 24 hr 02/25/25 19:15 02/25/25 20:16 02/25/25 20:17 Temperature 98.2 F Pulse Rate 126 H 97 87 Respiratory Rate 18 20 17 Blood Pressure 126/85 120/79 Pulse Oximetry 99 100 100 Oxygen Delivery Room Air 02/25/25 20:22 02/25/25 20:30 02/25/25 20:31 Temperature 98.2 F Pulse Rate 90 85 93 Respiratory Rate 20 19 20 Blood Pressure 120/79 116/81 Pulse Oximetry 100 99 99 Oxygen Delivery Room Air 02/25/25 20:45 08/04/25 21:14 02/25/25 21:24 Temperature Pulse Rate 100 101 H Respiratory Rate 20 19 Blood Pressure Pulse Oximetry 99 99 98 Oxygen Delivery 02/25/25 21:51 02/25/25 22:00 02/25/25 22:01 Temperature Pulse Rate 97 97 98 Respiratory Rate 19 18 19 Blood Pressure 128/87 Pulse Oximetry 98 98 98 Oxygen Delivery 02/25/25 22:15 02/25/25 22:16 02/25/25 22:30 Temperature Pulse Rate 103 H 100 102 H Respiratory Rate 20 19 21 H Blood Pressure 126/87 Pulse Oximetry 99 99 99 Oxygen Delivery 02/25/25 22:31 02/25/25 22:45 02/26/25 02:21 Temperature Pulse Rate 119 H 107 H 100 Respiratory Rate 17 19 22 H Blood Pressure 127/91 H 123/82 125/86 Pulse Oximetry 99 96 99 Oxygen Delivery 02/26/25 02:41 02/26/25 03:05 02/26/25 03:24 Temperature 98.6 F Pulse Rate 91 98 83 Respiratory Rate 18 20 18 Blood Pressure 124/84 125/84 Pulse Oximetry 99 99 100 Oxygen Delivery 02/26/25 04:00 02/26/25 04:00 02/26/25 06:00 Temperature Pulse Rate 91 92 Respiratory Rate Blood Pressure Pulse Oximetry Oxygen Delivery Room Air 02/26/25 07:23 Temperature 98 F Pulse Rate 93 Respiratory Rate 18 Blood Pressure 121/89 Pulse Oximetry 100 Oxygen Delivery Exam Const: General: comfortable and no acute distress Other: A&O x3 HENMT: Mouth: Yes moist mucous membranes Eyes: Pupils: Equal, round and reactive pupils present Neck: Neck: supple Resp: Effort & Inspection: normal respiratory effort Auscultation: clear to auscultation bilaterally Cardio: Rate: regular rate Rhythm: regular rhythm GI: Inspection: non-distended GI Palp: Yes Soft to palpation : Other: Bladder tender to palpation Extrem: General: no edema H&P: Results Labs Labs: Short CBC 02/25/25 02/26/25 Range/Units 23:02 08:09 WBC 6.6 3.2 L (4.5-10.0) K/mm3 Hgb 11.0 L 11.4 L (12.0-15.0) g/dL Hct 32.5 L 33.9 L (37.0-47.0) % Plt Count 140 L 125 L (150-375) k/mm3 BMP 02/25/25 02/26/25 23:02 08:09 Sodium 129 L 133 L Potassium 3.0 L 4.2 Chloride 94 L 101 Carbon Dioxide 26 22 BUN 7 5 L Creatinine 0.62 L 0.60 L Glucose 106 143 H Calcium 9.2 9.4 Cardiac Enzymes 02/25/25 Range/Units 23:02 Total Creatine Kinase 26 L (30-135) U/L Troponin I < 0.012 (0.000-0.034) ng/mL Liver Function 02/25/25 02/26/25 Range/Units 23:02 08:09 Total Bilirubin 2.0 H 1.8 H (0.2-1.3) mg/dL AST 75 H 77 H (14-36) U/L ALT 34 34 (6-35) U/L Alkaline Phosphatase 152 H 157 H (38-126) U/L Albumin 4.3 4.4 (3.5-5.1) g/dL Urine 02/25/25 Range/Units 21:23 Urine Color Dark yellow (Yellow) Urine Appearance Turbid H (Clear) Urine pH 5.5 (5.0-9.0) Ur Specific [place] 1.026 (1.001-1.035) Urine Protein 3+ H (Negative) mg/dL Urine Glucose (UA) Negative (Negative) mg/dL Assessment and Plan Assessment and plan (1) Nausea & vomiting: Qualifiers: Vomiting type: unspecified Qualified Code(s): R11.2 - Nausea with vomiting, unspecified Code(s): R11.2 - Nausea with vomiting, unspecified Status: Acute Assessment and Plan: This is chronic. Happen around the last time she ingested marijuana gummy. Advised cessation. Continue Pepcid 20 mg feeding tube HS. Elevated QTC, giving 1 time Benadryl. Holding [employer] Reglan as that can cause elevated QTC. Recheck EKG. (2) Cannabis abuse: Code(s): F12.10 - Cannabis abuse, uncomplicated Status: Acute (3) ETOH abuse: Code(s): F10.10 - Alcohol abuse, uncomplicated Status: Acute Assessment and Plan: Counseling provided (4) Transaminitis: Code(s): R74.01 - Elevation of levels of liver transaminase levels Status: Acute Assessment and Plan: Check acute hepatitis panel. LFTs however chronic. Advised follow-up with hepatology (5) Acute hypokalemia: Code(s): E87.6 - Hypokalemia Status: Acute Assessment and Plan: Replaced and resolved (6) Hypomagnesemia: Code(s): E83.42 - Hypomagnesemia Status: Acute Assessment and Plan: Replaced and resolved (7) UTI (urinary tract infection): Code(s): N39.0 - Urinary tract infection, site not specified Status: Acute Assessment and Plan: Continue ceftriaxone. Follow up urine culture. No sepsis. Plan This is a 35-year-old female with PMH cardiac arrest secondary to VFib in 10/2024, left ventricular clot, eating disorder status post PEG placement on 11/07/2023, chronic nausea, chronic LFT elevation, marijuana abuse, tobacco abuse depression and anxiety, alcohol use disorder. She presents to [facility] ER on 02/25/2025 complaining of nausea vomiting and diarrhea for a few days. She also has tingling in her face her legs. She has chronic neuropathy she reports she felt like she was going to faint. She has not been taking her medications in the past few days while she has been sick. She has had admission previous very similar to this where her nausea resolved and she improved with fluid and electrolyte resuscitation. On admission her sodium 129, potassium 3.0, magnesium 1.0, proBNP 165, TSH 1.4, urinalysis with positive nitrite, leukocyte esterase, no wbc's or bacteria report. She was given magnesium and potassium replacement, ceftazidime. Dexamethasone, Pepcid, meclizine, morphine, nicotine patch. ----- Patient wishes to be full code. She has a LifeVest. Continue [employer] Xarelto. Consult dietitian, continue tube feeds. Hospitalist [facility] Advance Care Plan I have confirmed that the patient's Advanced Care Plan is present, code status is documented, or surrogate decision maker is listed in patient medical record.: Yes Medication Reconciliation I have utilized all available resources to obtain, update and review the patients current medications (includes all prescriptions, OTC, herbals, cannabis, and nutritional supplements).: Yes
[2025-02-26 09:59] LABS: Hepatitis B Surface Antigen Negative (Negative)
[2025-02-26 10:05] LABS: HAV RESULT Negative (Negative); Hepatitis B Core IgM Result Negative (Negative)
[2025-02-26] MEDS: NEOMYCIN/POLYMYXIN/BACITRACIN OINTMENT PACKET 1 PACKET TOPICAL (13:13)
[2025-02-26] MEDS: METOCLOPRAMIDE HCL INJ 10 MG/2 ML VIAL IV PUSH (15:26)
[2025-02-26] MEDS: SIMETHICONE 80 MG TAB.CHEW FEED TUBE (15:34)
[2025-02-26] MEDS: ACETAMINOPHEN ELIXIR 325 MG/10.15 ML UDC 650 MG FEED TUBE (15:34)
[2025-02-26] MEDS: RIVAROXABAN 20 MG TABLET FEED TUBE (18:10)
[2025-02-26] MEDS: FAMOTIDINE 20 MG TABLET FEED TUBE (21:12)
[2025-02-26] MEDS: NICOTINE (*PBKC) 21 MG PATCH 1 PATCH TRANSDERM (22:14)
[2025-02-27] VITALS: BP 115/71; PULSE 67; PULSE 78; RESP 16; TEMP 36.8; O2SAT 100
[2025-02-27] MEDS: oxyCODONE HCL (*CRX) 5 MG TAB IR FEED TUBE ×2 (01:04→09:40)
[2025-02-27] MEDS: cefTAZidime INJ 1 GM in SODIUM CHLORIDE 0.9% IV 50 ML IVPB ×2 (01:05→09:35)
[2025-02-27] MEDS: METOCLOPRAMIDE HCL INJ 10 MG/2 ML VIAL IV PUSH ×2 (01:11→09:26)
[2025-02-27 04:00] VITALS: BP 130/72; PULSE 60; PULSE 63; RESP 15; TEMP 37; O2SAT 100
[2025-02-27 04:13] LABS: Hematocrit 32.6 % (37.0-47.0); Hemoglobin 10.4 g/dL (12.0-15.0); Immature Granulocyte Percent A 0.2 % (0-0.5); Immature Platelet Fraction Pct 10.0 % (0.9-11.2); Lymphocytes Absolute Auto 2.45 K/mm3 (0.9-3.2); Mean Corpuscular HGB Conc 31.9 g/dl (32-36); Mean Corpuscular Hemoglobin 33.3 pg (26-34); Mean Corpuscular Volume 104.5 fl (80-100); Nucleated Red Blood Cells Absolute Auto 0.020 K/mm3 (0.0-0.012); Nucleated Red Blood Cells Perc 0.3 % (0.0-0.2); Platelet Count Result 129 k/mm3 (150-375); Red Blood Count 3.12 M/mm3 (4.2-5.4); White Blood Count 6.2 K/mm3 (4.5-10.0)
[2025-02-27 04:29] LABS: Alanine Aminotransferase 44 U/L (6-35); Albumin Level 4.1 g/dL (3.5-5.1); Alkaline Phosphatase 119 U/L (38-126); Anion Gap 8 mmol/L (4-12); Aspartate Amino Transferase 102 U/L (14-36); Bilirubin,Total 0.8 mg/dL (0.2-1.3); Blood Urea Nitrogen 6 mg/dL (7-17); Calcium 9.2 mg/dL (8.4-10.2); Carbon Dioxide 26 mmol/L (22-30); Chloride 100 mmol/L (98-107); Estimated CRCL calculation 80 ml/min; Estimated Glomerular Filt Rate > 60; Glucose 114 mg/dL (65-110); Magnesium 2.0 mg/dL (1.6-2.3); Potassium 3.1 mmol/L (3.4-5.0); Sodium 134 mmol/L (137-145); Total Protein 7.2 g/dL (6.3-8.2)
--- NOTE | 2025-02-27 06:08 | PC.NURSE ---
SBAR tubed to 326 Nurse. Verbal report given. Patient transferred with all of her belongings to room 326
--- NOTE | 2025-02-27 06:29 | PC.NURSE ---
patient transfered from unit to room 326-2,This RN received report from dio GU. Patient has a life vest at bedside, per Face to Face order, with Dr. King vest to be worn, however, chart if patient refuses or unable to wear. Patient does not have applications scientist for vest when arriving to room 326-2. stated she would have someone bring applications scientist. report specialist and Educator notified. Patient placed on tele. V/s wnl, patient asymptomatic and playing on phone at this time.
[2025-02-27 06:47] VITALS: BP 119/78; PULSE 65; RESP 20; TEMP 36.4; O2SAT 99
[2025-02-27 08:00] VITALS: BP 132/81; PULSE 71; PULSE 77; RESP 16; TEMP 36.5; O2SAT 100
[2025-02-27] MEDS: FERROUS SULFATE LIQUID 325 MG/7.4 ML ELIXIR FEED TUBE (09:26)
[2025-02-27] MEDS: NEOMYCIN/POLYMYXIN/BACITRACIN OINTMENT PACKET 1 PACKET TOPICAL (09:26)
[2025-02-27] MEDS: MEGESTROL ACETATE (*CHEMO) ORAL SUSP 40 MG/ML SYR 20 MG FEED TUBE (09:26)
[2025-02-27] MEDS: MULTIVIT W/ IRON, MINERALS 15 ML LIQUID (*BKC) FEED TUBE (09:26)
[2025-02-27] MEDS: THIAMINE HCL 100 MG TABLET FEED TUBE (09:27)
[2025-02-27] MEDS: MAGNESIUM OXIDE 400 MG TABLET FEED TUBE (09:27)
[2025-02-27] MEDS: FOLIC ACID 1 MG TABLET FEED TUBE (09:27)
[2025-02-27] MEDS: NICOTINE (*PBKC) 21 MG PATCH 1 PATCH TRANSDERM (09:27)
[2025-02-27 12:00] VITALS: BP 118/78; PULSE 58; PULSE 76; RESP 16; TEMP 36.4; O2SAT 100
[2025-02-27] MEDS: POTASSIUM CHLORIDE 20 MEQ PACKET (FOR LIQUID) 40 MEQ FEED TUBE (12:51)
[2025-02-27 12:52] VITALS: PULSE 64
[2025-02-27 14:56] LABS: Anion Gap 5 mmol/L (4-12); Blood Urea Nitrogen 6 mg/dL (7-17); Calcium 9.5 mg/dL (8.4-10.2); Carbon Dioxide 28 mmol/L (22-30); Chloride 103 mmol/L (98-107); Estimated CRCL calculation 89 ml/min; Estimated Glomerular Filt Rate > 60; Glucose 98 mg/dL (65-110); Potassium 4.3 mmol/L (3.4-5.0); Sodium 136 mmol/L (137-145)
--- NOTE | 2025-02-27 15:10 | P.DS_ITS ---
DS: Admitting Diagnosis Discharge Date 02/27/2025 Admitting Diagnosis Nausea and vomiting DS: Discharge Diagnosis Discharge Diagnosis (1) Eating disorder, unspecified: Code(s): F50.9 - Eating disorder, unspecified Status: Acute (2) Avoidant/restrictive food intake disorder: Code(s): F50.82 - Avoidant/restrictive food intake disorder Status: Acute (3) Depression with anxiety: Code(s): F41.8 - Other specified anxiety disorders Status: Acute (4) Cannabis abuse: Code(s): F12.10 - Cannabis abuse, uncomplicated Status: Acute (5) Nausea & vomiting: Qualifiers: Vomiting type: unspecified Qualified Code(s): R11.2 - Nausea with vomiting, unspecified Code(s): R11.2 - Nausea with vomiting, unspecified Status: Acute DS: Summary Hospital Course Hospital Course: This is a 35-year-old female with PMH cardiac arrest secondary to VFib in 10/2024, left ventricular clot, eating disorder status post PEG placement on 11/07/2023, chronic nausea, chronic LFT elevation, marijuana abuse, tobacco abuse depression and anxiety, alcohol use disorder. She presents to [facility] ER on 02/25/2025 complaining of nausea vomiting and diarrhea for a few days. She also has tingling in her face her legs. She has chronic neuropathy she reports she felt like she was going to faint. She has not been taking her medications in the past few days while she has been sick. She has had admission previous very similar to this where her nausea resolved and she improved with fluid and electrolyte resuscitation. On admission her sodium 129, potassium 3.0, magnesium 1.0, proBNP 165, TSH 1.4, urinalysis with positive nitrite, leukocyte esterase, no wbc's or bacteria report. Reported some fullness in the bladder. She was given magnesium and potassium replacement, ceftazidime. Dexamethasone, Pepcid, meclizine, morphine, nicotine patch. 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 She is discharged in stable condition on 02/27/2025 to home. He is eating without issue. Her potassium and magnesium have been replaced. Hyponatremia is improved. Urine cultures pending, she received ceftazidime and will be discharged on Augmentin. Risks versus benefits of medication discussed. We discussed the detrimental effects of marijuana abuse, tobacco abuse, alcohol use disorder. She does not want additional resources. On multiple occasions she was asking for stronger narcotics and sleeping pills. These medications were not administered and her pain was controlled well anyway, she was able to sleep as well. There is a very high likelihood that there is a psychogenic component to her pain/pain medication request. Again, counseled about the dangers of addiction. She will follow-up with her PCP. She was full code during the admission. Time Spent with Patient Time attestation: Total time spent providing and/or coordinating discharge services: DS: Data Data Completed and Pending Labs on day of discharge: Labs from last 24 hours 02/27/25 02/27/25 02/27/25 14:21 11:55 07:36 WBC RBC Hgb Hct MCV MCH MCHC RDW Plt Count MPV Immature Gran % (Auto) Neut % (Auto) Lymph % (Auto) Cassia % (Auto) Eos % (Auto) Baso % (Auto) Lymph # (Auto) Cassia # (Auto) Eos # (Auto) Baso # (Auto) Abs Immat Gran (auto) Absolute Neuts (auto) Absolute Nucleated RBC Nucleated RBC % % Immature Plt Fraction Sodium 136 L Potassium 4.3 Chloride 103 Carbon Dioxide 28 Anion Gap 5 BUN 6 L Creatinine 0.57 L Estim Creat Clear Calc 89 Estimated GFR > 60 Glucose 98 POC Capillary Glucose 99 98 Calcium 9.5 Magnesium Total Bilirubin AST ALT Alkaline Phosphatase Total Protein Albumin 02/27/25 02/26/25 02/26/25 04:02 21:07 18:37 WBC 6.2 RBC 3.12 L Hgb 10.4 L Hct 32.6 L MCV 104.5 H D MCH 33.3 MCHC 31.9 L RDW 17.2 H Plt Count 129 L MPV 11.2 H Immature Gran % (Auto) 0.2 Neut % (Auto) 56.0 Lymph % (Auto) 39.6 Cassia % (Auto) 2.9 Eos % (Auto) 0.2 Baso % (Auto) 1.1 Lymph # (Auto) 2.45 Cassia # (Auto) 0.2 Eos # (Auto) 0.0 Baso # (Auto) 0.1 Abs Immat Gran (auto) 0.01 Absolute Neuts (auto) 3.5 Absolute Nucleated RBC 0.020 H Nucleated RBC % 0.3 H % Immature Plt Fraction 10.0 Sodium 134 L Potassium 3.1 L Chloride 100 Carbon Dioxide 26 Anion Gap 8 BUN 6 L Creatinine 0.64 L Estim Creat Clear Calc 80 Estimated GFR > 60 Glucose 114 H POC Capillary Glucose 122 H 135 H Calcium 9.2 Magnesium 2.0 Total Bilirubin 0.8 AST 102 H ALT 44 H Alkaline Phosphatase 119 Total Protein 7.2 Albumin 4.1 Discharge Plan Discharge Attending physician on discharge: Tiana Parkinson Discharging Clinician: Tiana Parkinson Patient Disposition: Home Activity: may shower Diet: as tolerated Patient Instructions: Antibiotic Form, Heart Failure (GEN) Patient Language: Czech Stand Alone Forms: General Discharge Information Follow-up/Referrals: Mo Mitchell MD [Primary Care Provider] - Discharge Medications: New amoxicillin-pot clavulanate 875-125 mg tablet 1 tablet PO Q12H Qty: 7 0RF Continued olanzapine 5 mg tablet 5 mg feeding tube QPM buspirone 15 mg tablet 15 mg feeding tube TID cyanocobalamin (vitamin B-12) 1,000 mcg tablet 1,000 mcg feeding tube MONTHLY oxycodone 5 mg tablet 5 mg feeding tube Q8H PRN (Reason: pain) nicotine 14 mg/24 hr patch 24 hour 1 patch transdermal Q24H Xarelto 20 mg Tablet 20 mg PO DAILY@1700 Qty: 30 0RF ergocalciferol (vitamin D2) 1,250 mcg (50,000 unit) capsule 1,250 mcg feeding tube WEEKLY famotidine 20 mg tablet 20 mg PO HS methocarbamol 750 mg tablet 750 mg feeding tube .q4hr nadolol 20 mg tablet 20 mg feeding tube DAILY simethicone 80 mg tablet,chewable 80 mg feeding tube QID PRN (Reason: abdominal distention) Patient Comments: after meals and at bedtime magnesium oxide 400 mg (241.3 mg magnesium) tablet 420 mg feeding tube DAILY thiamine HCl (vitamin B1) 100 mg tablet 100 mg feeding tube DAILY folic acid 1 mg tablet 1 mg feeding tube DAILY ferrous sulfate 325 mg (65 mg iron) tablet,delayed release (DR/EC) 325 mg PO BID Rx Instructions: patient administers via feeding tube megestrol 20 mg tablet 20 mg feeding tube BID vitamin B complex [Vitamins B Complex] Capsule 1 cap feeding tube QAM multivitamin with folic acid [Thera] 400 mcg tablet 1 tablet PO QAM Rx Instructions: pt administers via feeding tube Jevity 1.5 Chriss 0.06 gram-1.5 kcal/mL liquid See Rx Instructions .ROUTE .COMPLEX Rx Instructions: 75ml one to two times a day. potassium chloride 10 mEq capsule, extended release 10 meq feeding tube DAILY Qty: 60 0RF metoclopramide HCl [Reglan] 10 mg tablet 10 mg PO Q6H Qty: 120 0RF Discontinued ondansetron 8 mg tablet,disintegrating 8 mg PO Q8H PRN (Reason: nausea and vomiting) Qty: 90 0RF Eliquis 5 mg tablet 5 mg PO BID trazodone 50 mg tablet 50 mg feeding tube HS Date of admission: 02/26/25 01:49 Primary Care Provider: Mo Mitchell Admitting Provider: Rochelle King Attending physician on admission: Rochelle King Condition: Stable
== END 2025-02-27 16:13 | disposition home or self-care (01) ==
LOC: ANHED 02-26 01:49 → ANHIMU 02-26 05:00 → ANH3MEDSUR 02-27 15:06 → ANHIMU 02-28 07:31
PROVIDERS: Emergency Medicine; Admitting Provider Internal Medicine; Emergency Provider Student in an Organized Health Care Education/Training Program; PCP Internal Medicine; Visit Provider General Practice
DX: F50.9 Eating disorder, unspecified (principal); F50.82 Avoidant/restrictive food intake disorder; R11.2 Nausea with vomiting, unspecified; F10.10 Alcohol abuse, uncomplicated; Z86.74 Personal history of sudden cardiac arrest; F12.10 Cannabis abuse, uncomplicated; R74.01 Elevation of levels of liver transaminase levels; E87.6 Hypokalemia; E83.42 Hypomagnesemia; F41.8 Other specified anxiety disorders; N39.0 Urinary tract infection, site not specified; F17.210 Nicotine dependence, cigarettes, uncomplicated; Z79.01 Long term (current) use of anticoagulants; Z20.822 Contact with and (suspected) exposure to COVID-19; R06.02 Shortness of breath
CPT/HCPCS: 36415; 71045; 80048; 80053; 80074; 80307; 81001; 81025; 82077; 82550; 82570; 82948; 83735; 83880; 84300; 84443; 84484; 85025; 85055; 85380; 87637; 93005; 96361; 96365; 96366; 96367; 96375; 96376; 99285; A9270; G0378; G0379; J0713; J1100; J1200; J2270; J2765; J3475; J7040; J7050

== ENCOUNTER 2025-03-04 16:43 | Observation (INO) | payer OTHER, SELFPAY ==
[2025-03-04] VITALS (17 sets, daily range): BP systolic 111–152; BP diastolic 76–113; PULSE 70–129; RESP 15–29; TEMP 36.7–36.8; O2SAT 99–100; BMI 20.3
--- OUTSIDE RECORDS SUMMARY | 2025-03-04 16:45 | XMS_ITS | Patient Health Record ---
Author Organization [facility] Address [address] [place] [address] Care Team Providers Care Blasting Helper Name Role Phone Mo Mitchell Primary Care Provider Marilu Mora Unavailable [phone] Allergies Allergen (clinical drug ingredient) Drug/Non Drug [...] gait (R26.8 1) Referral Organization [facility] Referring Provider First Name Mo Referring Provider Last Name Paula Referring Provider Speciality Internal M edicine Referred Provider Specialty Physical The rapist General Notes BRITTANIE Patton, Tory Manzano 05/11/2024 09:02:12 AM > Referral to [facility] PT. letter to pt., Giovanna Hoyos 01/17/2025 02:50:03 PM >Talked with client who reported that this referral was not completed b/c client had gotten better & it was no longer needed. Closing referral. Clinical Notes [facility] Physical Therap y, [address] [facility] [address], , Referral Priority Routine Medications Medication SIG [...] Once a day Active Ergocalciferol 1.25 MG (07975 UT) 1 capsule Orally Active Cefadroxil 500 [...] W/U Status Risk Notes Problem Tobacco user (546002741) Nicotine dependence, unspecified, uncomplicated (F17.200) Active confirmed Problem Eating disorder (15610269) Eating disorder, unspecified (F50.9) Active confirmed Problem Prolonged QT interval (885071172) Prolonged QT interval (I45.81) Active confirmed Problem Peripheral neuropathy (193796427) Peripheral neuropathy (G62.9) Active confirmed Problem Chronic pain (61241691) Chronic pain (G89.29) Active confirmed Problem Unsteady gait (02158158) Unsteady gait (R26.81) Active confirmed Problem Deficiency of macronutrients (disorder) (602506601) Protein-calorie malnutrition, unspecified severity (E46) Active confirmed [...] 12/05/2024 Encounters Encounter Location Date Provider Diagnosis [address] [place] [address] 03/20/2024 Mo Mitchell Peripheral neuropath y G62.9 ; Eating disorder, unspecified F50.9 ; Unsteady gait R26.81 ; Protein-calorie malnutrition, unspecified severity E46 and Periodontal disease K05.[address] [place] [address] 03/20/2024 Marilu Mora [address] [place] [address] 10/01/2024 Mo Mitchell Protein-calorie malnutrition, unspecified severity E46 ; Peripheral neuropathy G62.9 ; Eating disorder, unspecified F50.9 and Nicotine dependence, unspecified, uncomplicated F17.[address] [place] [address] 12/05/2024 Mo Mitchell Torsades de pointes I47.21 ; Prolonged QT interval I45.81 ; Chronic pain G89.29 ; Alcohol related disorder F10.99 ; Peripheral neuropathy G62.9 ; Protein-calorie malnutrition, unspecified severity E46 ; Unsteady gait R26.81 and Opioid use F11.90 [facility] [place] [address] 11/23/2024 Mo Mitchell [place] [address] [place] [address] 12/03/2024 Mo Mitchell [facility] [address] [place] [address] 12/03/2024 Mo Mitchell [address] [place] [address] 12/05/2024 Mo Mitchell [address] [place] [address] 12/19/2024 Mo Mitchell [facility] [address] [place] [address] 12/28/2024 Mo Mitchell [facility] [place] [address] 01/02/2025 Mo Mitchell Hypokalemia E87.6 ; Alcohol related disorder F10.99 and Fatigue R53.83 [facility] [address] [place] [address] 01/08/2025 Mo Mitchell [facility] [address] [place] [address] 01/10/2025 Mo Mitchell [facility] [address] [place] [address] 01/16/2025 Mo Mitchell [facility] [address] [facility] [place] [address] 01/18/2025 Mo Mitchell [address] [address] [place] [address] 02/01/2025 Mo Mitchell [place] [address] [facility] [place] [address] 02/13/2025 Mo Mitchell [address] [place] [address] [facility] [place] [address] 02/22/2025 Mo Mitchell [address] [place] [address] 03/19/2024 Mo Mitchell [address] [place] [address] 04/20/2024 Mo Mitchell [address] [place] [address] 06/13/2024 Mo Mitchell [address] [place] [address] 06/14/2024 Mo Mitchell Eating disorder, unspecified F50.[address] [place] [address] 06/18/2024 Mo Mitchell [address] [place] [address] 06/27/2024 Mo Mitchell [address] [place] [address] 07/27/2024 Mojey Godinezner [address] [address] 07/30/20[address]ner [address] [address] 09/25/2024 Mo Mitchell [address] [address] 10/15/2024 Mo Mitchell Eating disorder, unspecified F50.9 and Peripheral neuropathy G62.[address] [address] 01/23/2025 Mo Mitchell [address] [address] 02/28/2025 Mo Mitchell Chronic pain G89.29 Assessments Encounter Date Diagnosis (ICD Code) Assessment Notes Treatment Notes Treatment Clinical Notes Section Notes 10/01/2024 Protein-calorie malnutrition, unspecified severity (ICD-10 - E46) 12/05/2024 Torsades de pointes (ICD-10 - I47.21) WILL NEED TO AVOID QT-PROLONGING DRUGS. F/U WITH CARDIOLOGY FOR MONITOR. 01/02/2025 Hypokalemia (ICD-10 - E87.6) 10/01/2024 Peripheral neuropathy (ICD-10 - G62.9) 01/02/2025 Alcohol related disorder (ICD-10 - F10.99) 02/28/2025 Chronic pain (ICD-10 - G89.29) 10/15/2024 Eating disorder, unspecified (ICD-10 - F50.9) 12/05/2024 Prolonged QT interval (ICD-10 - I45.81) F/U WITH CARDIOLOGY. 03/20/2024 Eating disorder, unspecified (ICD-10 - F50.9) [...] SOLUTION 12/05/2024 Unsteady gait (ICD-10 - R26.81) KRISTIAN, PT/OT 12/05/2024 Opioid use (ICD-10 - F11.90) Plan Of Treatment Next Appt Details Provider Name:Mo Mitchell , 03/07/2025 01:40:00 PM, [address] [place], [address], Insurance Providers Payer Name Payer Address Payer Phone Subscriber Number Group Number Insured Name Patient Relationship to Insured Coverage Start Date Coverage End Date [address] [phone] [id number] Ester León Self - patient is the insured Medical (General) History Surgical History Surgery Date(Month/Year) peg tube 10/2023 child 2017 Hospitalization History Reason Date(Month/Year) [facility] 02/04/17 [facility] Cardiac arrest 10/2024 [facility]. infection 07/2024
--- OUTSIDE RECORDS SUMMARY | 2025-03-04 16:45 | XMS_ITS | Clinical Summary ---
Author Organization [facility] Address [address] [place] [address] [place] [address] Care Team Providers Care Legislators Name Role Phone Unavailable Primary Care Provider [...]
--- OUTSIDE RECORDS SUMMARY | 2025-03-04 16:45 | XMS_ITS | Clinical Summary ---
Author Organization [facility] Address [address] [place] [address] Care Team Providers Care Hr Operations Advisor Name Role Phone Mo Mitchell MD Primary Care Provider [phone] Allergies Active Allergy Reactions Criticality Noted Date [...] for diarrhea 100 mL 5 Active multivit enctmcek-koku-G A-calcium (THERA-M) 9 mg iron-400 mcg tabletIndicatio [...] daily until blood thinner is received from garment mender office Indications: treatment to prevent a heart [...] Care Team Description 02/22/2025 Home Care Visit [address] [place] [address] Nayely Pedroza, RN SN VIRTUAL NON OASIS DISCHARGE 02/20/2025 Home Care Visit [address] [place] [address] Nayely Pedroza, RN TELEPHONE ENCOUNTER 02/19/2025 Home Care Visit [address] [place] [address] Nayely Pedroza, RN TELEPHONE ENCOUNTER 02/15/2025 Orders Only [facility] Cardiothoracic Surgery [address] [facility] 8th Floor [address] Room [phone] [place] [phone] Bo Fried MD Mass of left cardiac ventricle (Primary Dx) 02/15/2025 Telephone [facility] Home Care Services [address] [place] [address] Unknown, Notinfile 02/14/2025 Telephone [facility] Home Care Services [address] [facility] [address] [place] [address] Salas, Summer 02/13/2025 Orders Only [facility] Cardiothoracic Surgery [address] [facility] 8th Floor [address] Room [address] [phone] Bo Fried MD Mass of left cardiac ventricle (Primary Dx) 02/12/2025 2:30 PM CDT Home Care Visit [address] [address] [address] [place] [address] Nayely Pedroza, BRITTANIE SN HOME VISIT 02/07/2025 10:00 AM CDT Home Care Visit [address] [place] [address] Isabelle Campbell, OT OT INITIAL EVALUATION 02/07/2025 9:00 AM CDT Home Care Visit [address] [place] [address] Pia Swan, RN SN HOME VISIT 02/07/2025 Telephone [facility] Infectious Diseases [address] [facility] [address] [place] [phone] Rosangela Simental, ROSA MARIA 02/06/2025 2:00 PM CDT Home Care Visit [address] [place] [address] Thang Solorzano, PT PT INITIAL EVALUATION 02/05/2025 Home Care Visit [address] [address] [address] [place] [address] Pia Moon, BRITTANIE TELEPHONE ENCOUNTER 02/01/2025 Telephone [facility] Cardiology [address] [facility] 8th Floor [address] [place] [phone] Nani Melchor, STAN Scheduling Appointments 01/31/2025 2:00 PM CDT Home Care Visit [address] [place] [address] Nayely Pedroza, BRITTANIE SN OASIS RECERTIFICATION 01/31/2025 Plan of Care Documentation [address] [place] [address] 01/29/2025 Home Care Visit [address] [place] [address] Nayely Pedroza, BRITTANIE TELEPHONE ENCOUNTER 01/28/2025 Home Care Visit [address] [place] [address] Nayely Pedroza, BRITTANIE TELEPHONE ENCOUNTER 01/24/2025 9:40 AM CDT Office Visit [facility] Infectious Diseases [address] [facility] [address] [place] [phone] Dorothea Stephen, BRAXTON MSSA bacteremia (Primary Dx) 01/22/2025 12:40 PM CDT - 01/22/2025 11:59 PM CDT Hospital Encounter [facility] [address] [place] [address] Discharge Disposition: Discharge to home or self care 01/22/2025 12:00 PM CDT Home Care Visit [address] [place] [address] Nayely Pedroza, BRITTANIE SN HOME VISIT 01/18/2025 10:30 AM CDT Home Care Visit [address] [place] [address] Billy Zarco, BRITTANIE SN OASIS RESUMPTION OF CARE 01/18/2025 Plan of Care Documentation [address] [place] [address] 01/17/2025 Orders Only [facility] Medical Group Cardiology [address] [place] [phone] Oz Noble MD 01/17/2025 Home Care Visit [address] [place] [address] Pia Moon, RN SN OASIS TRANSFER W/OUT DC 01/16/2025 Home Care Visit [address] [place] [address] Pia Moon, RN TELEPHONE ENCOUNTER 01/15/2025 10:00 AM CDT Office Visit [facility] Cardiothoracic Surgery [address] [facility] 8th Floor [address] Room [address] [place] [phone] Bo Fried MD Mass of left cardiac ventricle 01/15/2025 8:15 AM CDT - 01/15/2025 11:59 PM CDT Hospital Encounter [facility] Cardiac Diagnostic Lab [address] [facility] 8th [place] [phone] Bo Fried MD MSSA bacteremia; Thrombocytopenia Discharge Disposition: Discharge to home or self care 01/14/2025 Telephone [facility] Home Care Services [address] [facility] [address] [place] [address] Ondina Salas [facility] 01/11/2025 Telephone [facility] Home Care Services [address] [facility] [address] [place] [address] Vidhi Martin 01/09/2025 Telephone [facility] Infectious Diseases [address] [facility] [address] [place] [phone] Sidney Gould Jr., RN 01/08/2025 Telephone [facility] Home Care Services [address] [place] [address] [address] [place] [address] Vidhi Martin 01/01/2025 2:10 PM CDT - 01/01/2025 11:59 PM CDT Hospital Encounter [facility] [address] [place] [address] Discharge Disposition: Discharge to home or self care 01/01/2025 2:00 PM CDT Home Care Visit [address] [place] [address] Nayely Pedroza, BRITTANIE SN HOME VISIT 01/01/2025 Telephone [facility] Infectious Diseases [address] [facility] [address] [place] [address] Sidney Gould Jr., RN 12/31/2024 Telephone [facility] Cardiology [address] [place] [address] 8th [place] [address] [place] [phone] Nani Melchor NP 12/31/2024 Orders Only [facility] Infectious Diseases [address] [address] Dorothea Stephen, [place] 12/28/2024 11:00 AM CDT Home Care Visit [address] [place] [address] Nayely Pedroza RN SN HOME VISIT 12/27/2024 2:00 PM CDT Home Care Visit [address] [place] [address] Thang Solorzano, PT PT DISCIPLINE DISCHARGE 12/27/2024 9:13 AM CDT - 12/27/2024 11:59 PM CDT Hospital Encounter [facility] [address] [place] [address] Discharge Disposition: Discharge to home or self care 12/27/2024 8:40 AM CDT Office Visit [facility] Infectious Diseases [address] [address] Dorothea Stephen, [place] MSSA bacteremia (Primary Dx); Encounter for screening examination for sexually transmitted disease 12/27/2024 Telephone [facility] Infectious Diseases [address] [facility] [address] [place] [phone] Dorothea Stephen, BRAX[place] 12/25/2024 Telephone [facility] Primary [facility] Medicine [facility] [address] [facility] [address] [place] [address] Veronika Ocampo MD 12/21/2024 2:00 PM CDT Home Care Visit [address] [place] [address] Thang Solorzano, PT PT HOME VISIT 12/21/2024 11:30 AM CDT Home Care Visit [address] [place] [address] Nayely Pedroza, RN SN HOME VISIT 12/21/2024 Orders Only [facility] Cardiology [address] [facility] 8th [place] [address] [place] [phone] Nani Melchor, B[place] 12/19/2024 11:00 AM CDT Home Care Visit [address] [place] [address] Thang Solorzano, PT PT HOME VISIT 12/19/2024 Home Care Visit [address] [place] [address] Thang Solorzano, PT CASE COMMUNICATION 12/13/2024 10:45 AM CDT Home Care Visit [address] [place] [address] Khushboo Jarvis, PT PT HOME VISIT 12/11/2024 2:30 PM CDT Home Care Visit [address] [place] [address] Khushboo Jarvis, PT PT HOME VISIT 12/11/2024 1:00 PM CDT Home Care Visit [address] [place] [address] Nayely Pedroza, RN SN HOME VISIT 12/07/2024 SHOP/CHAP Subsequent Outreach [facility] OP CASE MANAGEMENT [address] [place] [address] Neeta Ott, RN 12/06/2024 12:30 PM CDT Home Care Visit [address] [place] [address] Nayely Pedroza, RN SN HOME VISIT 12/06/2024 11:00 AM CDT Home Care Visit [address] [place] [address] Isabelle Campbell, OT OT INITIAL EVALUATION 12/05/2024 SHOP/CHAP Subsequent Outreach [facility] OP CASE MANAGEMENT [address] [place] [address] Neeta Ott, BRITTANIE 12/04/2024 SHOP/CHAP Subsequent Outreach [facility] OP CASE MANAGEMENT [address] [place] [address] Neeta Ott, RN 12/04/2024 Home Care Visit [address] [place] [address] Nayely Pedroza, RN CARE CONFERENCE 12/03/2024 1:10 PM CDT Telemedicine [address] [place] [address] Yamilex Mathew, [place] Torsades de pointes (HCC) (Primary Dx); MSSA bacteremia 12/03/2024 10:00 AM CDT Home Care Visit [address] [place] [address] Thang Solorzano, PT PT INITIAL EVALUATION 12/03/2024 Home Care Visit [address] [place] [address] Billy Zarco, RN TELEPHONE ENCOUNTER 12/03/2024 Home Care Visit [address] [place] [address] Thang Solorzano, PT TELEPHONE ENCOUNTER from Last 3 Months Immunizations Immunization Administration [...] materials from doctor or pharmacy Sometimes 01/18/2025 [facility] Utilities Answer Date Recorded In the past 12 months has e [employer], gas, oil, or water company threatened to shut off services in your home? No 11/29/2024 Social Connection and Isolation Panel Answer Date Recorded In a typical week, how many times do you talk on the phone with family, friends, or neighbors? More than three times a week 11/29/2024 How often do you get togethe r with friends or relatives? More than three times a week 11/29/2024 How often do you attend chur ch or gnosticism services? Never 11/29/2024 Do you belong to any clubs o r organizations such as uatsdin groups, unions, fraternal or athletic groups, or [...] any time in the past 12 m [facility], were you homeless or living in a senior living (including now)? No 11/29/2024 Personal Safety Answer Date Recorded Have you ever been in or are you currently in a harmful physical or emotional relationship or is someone making you feel afraid or unsafe? Denies 10/31/2024 Comments No Sex and Gender Information Value Date Recorded Sex Assigned at Not on file Legal Sex Female 8:06 PM EDUCATION ANALYST Gender Identity Not on file Sexual [...] Date/Time Associated Diagnosis Comments BLOOD MISC TO [facility] Routine 01/22/2025 12 :40 PM CDT EGFR [...] Routine 12/27/2024 9:05 AM CDT MSSA bacteremia HEPATITIS PANEL, ACUTE Routine 2:31 PM CDT THINPREP TIS PAP REFLEX HPV MRNA E6/E7, CHLAMYDIA/N.GONORRHOEA E Routine 09/14/2016 12:56 PM EDUCATION ANALYST from Last 3 Months or Most Recently Relevant to Health Maintenance Results * BLOOD MISC TO [facility] (01/22/2025 12:40 PM CDT) Test name, chem CDTA,CARBOHYD RATE DEFICIENT TRANSFERRIN,A DULT SCRE [facility] Comment:Credited, test not i ndicated. Misc see comment SHONA RAMIREZ Comment:Credited, test not i ndicated. Blood 01/22/2025 12:4 0 PM CDT 01/24/2025 2:14 PM CDT us Notinfile Unknown LAB BLOOD ORDERABLES Final Res ult SHONA BACK One [facility] [place] [address] [facility] * eGFR (01/22/2025 12:40 PM [...] LAB BLOOD ORDERABLES Final Res ult SHONA [facility] One [facility] Department [place] [address] * Differential, auto (01/22/2025 12:40 PM CDT) Neutrophil abs 2.80 1.50 - 6.50 K/cumm Imm gran abs 0.00 0.00 - 0.10 K/cumm [facility] Lymphocyte abs 2.66 0.80 - 3.30 K/cumm [facility] Monocyte abs 0.21 0.20 - 0.80 K/cumm [facility] Eosinophil abs 0.14 0.00 - 0.50 K/cumm [facility] Basophil abs 0.05 0.00 - 0.10 K/cumm [facility] Neutrophil pct 47.7 % [facility] Comment: Interpretive Data Percent cell count reference ranges are not reported, since discordance with absolute values may lead to misinterpretation of CBC data. Current Interpretive Data was last revised on 2017. Imm gran pct 0.0 % [facility] Comment: Interpretive Data Percent cell count reference ranges are not reported, since discordance with absolute values may lead to misinterpretation of CBC data. Current Interpretive Data was last revised on 2017. Lymphocyte pct 45.4 % [facility] Comment: Interpretive Data Percent cell count reference ranges are not reported, since discordance with absolute values may lead to misinterpretation of CBC data. Current Interpretive Data was last revised on 2017. Monocyte pct 3.6 % [facility] Comment: Interpretive Data Percent cell count reference ranges are not reported, since discordance with absolute values may lead to misinterpretation of CBC data. Current Interpretive Data was last revised on 2017. Eosinophil pct 2.4 % [facility] Comment: Interpretive Data Percent cell count reference ranges are not reported, since discordance with absolute values may lead to misinterpretation of CBC data. Current Interpretive Data was last revised on 2017. Basophil pct 0.9 % [facility] Comment: Interpretive Data Percent cell count reference ranges are not reported, since discordance with absolute values may lead to misinterpretation of CBC data. Current Interpretive Data was last revised on 2017. Blood 01/22/2025 12:4 0 PM CDT 01/22/2025 3:52 PM CDT us Notinfile Unknown LAB BLOOD ORDERABLES Final Res ult Performing Organization Address City/[facility]/ZIP Co de Phone Number [facility] [place] [address] * (ABNORMAL) Iron profile w/ IBC (01/22/2025 12:40 PM CDT) [facility] Iron 60 35 - 145 mcg/dL TIBC 322 250 - 400 mcg/dL [facility] Transferrin saturation 19(L) 20 - 50 % [facility] Blood 01/22/2025 12:4 0 PM CDT 01/22/2025 3:52 PM CDT us Notinfile Unknown LAB BLOOD ORDERABLES Final Res ult Performing Organization Address [facility] Co de Phone Number [facility] [place] [address] * (ABNORMAL) CBC with auto differential (01/22/2025 12:40 PM CDT) [facility] WBC 5.86 3.80 - 9.90 K/cumm Hgb 12.9 11.9 - 15.5 g/dL [facility] Hct 39.0 35.6 - 45.5 % [facility] Plt 170 150 - 400 K/cumm [facility] MPV 11.0 9.1 - 12.3 fL [facility] RBC 4.01 3.90 - 5.20 M/cumm [facility] MCV 97.3(H) 81.3 - 96.4 fL [facility] MCH 32.2 27.1 - 33.3 pg [facility] MCHC 33.1 32.3 - 35.7 g/dL [facility] RDW CV 13.4 11.1 - 14.9 % [facility] RDW SD 47.5 35.7 - 48.1 fL [facility] NRBC abs 0.00 0.00 - 0.01 K/cumm [facility] Blood 01/22/2025 12:4 0 PM CDT 01/22/2025 3:52 PM CDT us Notinfile Unknown LAB BLOOD ORDERABLES Final Res ult Performing Organization Address City/[facility] Co de Phone Number [facility] [place] [address] * Magnesium (01/22/2025 12:40 PM CDT) Magnesium 2.0 1.4 - 2.5 mg/dL Blood 01/22/2025 12:4 0 PM CDT 01/22/2025 3:52 PM CDT us Notinfile Unknown LAB BLOOD ORDERABLES Final Res ult Performing Organization Address [facility] Co de Phone Number [facility] [place] [address] * Folate (01/22/2025 12:40 PM CDT) Folic acid >20.0 >=5.0 ng/mL Blood 01/22/2025 12:4 0 PM CDT 01/22/2025 3:52 PM CDT us Notinfile Unknown LAB BLOOD ORDERABLES Final Res ult Performing Organization Address City/[facility] [place] [address] * Vitamin B12 (01/22/2025 12:40 PM CDT) Vitamin B12 815 230 - 1,250 pg/mL Blood 01/22/2025 12:4 0 PM CDT 01/22/2025 3:52 PM CDT us Notinfile Unknown LAB BLOOD ORDERABLES Final Res ult SHONA [facility] One [facility] Department [place] [address] * (ABNORMAL) Comprehensive metabolic panel (01/22/2025 12:40 PM CDT) Sodium 135 135 - 145 mmol/L Potassium, pl 3.4 3.3 - 4.9 mmol/L [facility] Chloride 98 97 - 110 mmol/L [facility] CO2 23 22 - 32 mmol/L [facility] Anion gap 14 2 - 15 mmol/L [facility] BUN 9 6 - 25 mg/dL [facility] Creatinine 0.63 0.60 - 1.10 mg/dL [facility] Glucose 85 70 - 199 mg/dL [facility] Comment: Interpretive Data Fasting glucose [...] 2022. Calcium 10.1 8.5 - 10.3 mg/dL [facility] Bilirubin, total 0.4 0.1 - 1.2 mg/dL [facility] Protein, pl 7.5 6.5 - 8.5 g/dL [facility] Albumin 4.1 3.5 - 5.0 g/dL [facility] Alk phos 139(H) 40 - 130 Units/L [facility] ALT 33 7 - 45 Units/L [facility] AST 58(H) 10 - 45 Units/L [facility] Blood 01/22/2025 12:4 0 PM CDT 01/22/2025 3:52 PM CDT us Notinfile Unknown LAB BLOOD ORDERABLES Final Res ult SHONA [facility] One [facility] Department [place] [address] * TRANSTHORACIC ECHO (TTE) COMPLETE W DOPPLER/CF W CONTRAST (01/15/2025 9:57 AM CDT) EF Mod BP 55 % CONS SCIMAGE Anatomical Region Laterality Modality Ultrasound 01/15/2025 8:50 AM CDT Narrative 01/15/2025 11:28 AM CDT [facility] [place] [address] Transthoracic Echocardiographic Report Patient Name: HAYLEY LEÓN L : 1990 (34y 11m) Gender: F Study Date: 01/15/2025 08:50:13 AM Ht(Inch): 61 Wt(Lb): 102.07 BSA: 1.41 Manager Transfer: Roza. Watkins UGO Location: [facility] Order Provider: BO FRIED Heart Rate: 81 [...] Note Italo Hill MD PhD - 01/15/2025 [facility] [place]iac [place] [address] Transthoracic Echocardiographic Report Patient Name: HAYLEY LEÓN L : 1990 (34y 11m) Gender: F Study Date: 01/15/2025 08:50:13 AM Ht(Inch): 61 Wt(Lb): 102.07 BSA: 1.41 Manager Transfer: Roza. Watkins [facility] Location: [facility] Order Provider:BO FRIED Heart Rate: 81 BMI: [...] LA Length 2C 3.64 cm MV Decel Nxfm064.25 msec [ 104.00 - 258.00 ] LA [...] CDT 01/01/2025 6:14 PM CDT us Dorothea Jaramillo'Brien [facility]AMP[facility] SAFETY OFFICER LAB BLOOD ORDERABLES Krystyna l Result [facility] Department [place] [address] * (ABNORMAL) Basic metabolic panel (01/01/2025 2:10 PM CDT) Sodium 139 135 - 145 mmol/L Potassium, pl 2.9(L) 3.3 - 4.9 mmol/L [facility] Chloride 98 97 - 110 mmol/L [facility] CO2 26 22 - 32 mmol/L [facility] Anion gap 15 2 - 15 mmol/L [facility] BUN 11 6 - 25 mg/dL [facility] Creatinine 0.63 0.60 - 1.10 mg/dL [facility] Glucose 91 70 - 199 mg/dL [facility] Comment: Interpretive Data Fasting glucose [...] 2022. Calcium 9.2 8.5 - 10.3 mg/dL [facility] Blood 01/01/2025 2:10 PM CDT 01/01/2025 6:04 PM CDT Dorothea Stephen CAMPUS SAFETY OFFICER LAB BLOOD ORDERABLES Krystyna l Result Performing Organization Address City/[facility]/ZIP Co de Phone Number [facility] [place] [address] * Glucose, random (Outreach) (12/27/2024 9:13 AM [...] NP LAB BLOOD ORDERABLES Krystyna meyers Result [facility] [place] [address] * eGFR (12/27/2024 9:13 AM CDT) eGFR [...] 12/27/2024 10:50 AM CDT us Dorothea Stephen CAMPUS SAFETY OFFICER LAB BLOOD ORDERABLES Krystyna meyers Result SHONA [facility] One [facility] [place] [address] * Differential, auto (12/27/2024 9:13 AM CDT) Neutrophil abs 3.36 1.50 - 6.50 K/cumm Imm gran abs 0.01 0.00 - 0.10 K/cumm [facility] Lymphocyte abs 1.97 0.80 - 3.30 K/cumm [facility] Monocyte abs 0.37 0.20 - 0.80 K/cumm [facility] Eosinophil abs 0.18 0.00 - 0.50 K/cumm [facility] Basophil abs 0.04 0.00 - 0.10 K/cumm [facility] Neutrophil pct 56.7 % [facility] Comment: Interpretive Data Percent cell count reference ranges are not reported, since discordance with absolute values may lead to misinterpretation of CBC data. Current Interpretive Data was last revised on 2017. Imm gran pct 0.2 % [facility] Comment: Interpretive Data Percent cell count reference ranges are not reported, since discordance with absolute values may lead to misinterpretation of CBC data. Current Interpretive Data was last revised on 2017. Lymphocyte pct 33.2 % [facility] Comment: Interpretive Data Percent cell count reference ranges are not reported, since discordance with absolute values may lead to misinterpretation of CBC data. Current Interpretive Data was last revised on 2017. Monocyte pct 6.2 % [facility] Comment: Interpretive Data Percent cell count reference ranges are not reported, since discordance with absolute values may lead to misinterpretation of CBC data. Current Interpretive Data was last revised on 2017. Eosinophil pct 3.0 % [facility] Comment: Interpretive Data Percent cell count reference ranges are not reported, since discordance with absolute values may lead to misinterpretation of CBC data. Current Interpretive Data was last revised on 2017. Basophil pct 0.7 % [facility] Comment: Interpretive Data Percent cell count reference ranges are not reported, since discordance with absolute values may lead to misinterpretation of CBC data. Current Interpretive Data was last revised on 2017. Blood 12/27/2024 9:13 AM CDT 12/27/2024 10:37 AM CDT Dorothea Stephen CAMPUS SAFETY OFFICER LAB BLOOD ORDERABLES Krystyna l Result Performing Organization Address City/[facility]/ZIP Co de Phone Number [facility] [place] [address] * (ABNORMAL) Comprehensive metabolic panel, without glucose (Outreach) (12/27/2024 9:13 AM CDT) Sodium 136 135 - 145 mmol/L Potassium, pl 2.9(L) 3.3 - 4.9 mmol/L [facility] Chloride 98 97 - 110 mmol/L [facility] CO2 24 22 - 32 mmol/L [facility] Anion gap 14 2 - 15 mmol/L [facility] BUN 9 6 - 25 mg/dL [facility] Creatinine 0.64 0.60 - 1.10 mg/dL [facility] Calcium 9.7 8.5 - 10.3 mg/dL [facility] Protein, pl 8.2 6.5 - 8.5 g/dL [facility] Albumin 4.2 3.5 - 5.0 g/dL [facility] Bilirubin, total 0.7 0.1 - 1.2 mg/dL [facility] Alk phos 175(H) 40 - 130 Units/L [facility] AST 51(H) 10 - 45 Units/L [facility] ALT 25 7 - 45 Units/L [facility] Blood 12/27/2024 9:13 AM CDT 12/27/2024 10:38 AM CDT Dorothea Stephen CAMPUS SAFETY OFFICER LAB BLOOD ORDERABLES Krystyna l Result Performing Organization Address [facility]/ZIP Co de Phone Number [facility] Department [place] [address] * (ABNORMAL) CBC with auto differential (12/27/2024 9:13 AM CDT) [facility] WBC 5.93 3.80 - 9.90 K/cumm Hgb 13.9 11.9 - 15.5 g/dL [facility] Hct 40.1 35.6 - 45.5 % [facility] Plt 138(L) 150 - 400 K/cumm [facility] MPV 11.4 9.1 - 12.3 fL [facility] RBC 4.23 3.90 - 5.20 M/cumm [facility] MCV 94.8 81.3 - 96.4 fL [facility] MCH 32.9 27.1 - 33.3 pg [facility] MCHC 34.7 32.3 - 35.7 g/dL [facility] RDW CV 13.0 11.1 - 14.9 % [facility] RDW SD 45.3 35.7 - 48.1 fL [facility] NRBC abs 0.00 0.00 - 0.01 K/cumm [facility] Blood 12/27/2024 9:13 AM CDT 12/27/2024 10:37 AM CDT us Dorothea Stephen NP LAB BLOOD ORDERABLES Krystyna l Result Performing Organization Address City/[facility]/ZIP Co de Phone Number [facility] [place] [address] * Magnesium (12/27/2024 9:13 AM CDT) [facility] Magnesium 1.9 1.4 - 2.5 mg/dL Blood 12/27/2024 9:13 AM CDT 12/27/2024 10:50 AM CDT us Mo Villatoro MD LAB BLOOD ORDERABLES Final Resul t [facility] Department [place] [address] * Blood culture Blood (12/27/2024 9:05 AM CDT) Report Final Report: No growth Blood 12/27/2024 9:0 5 AM CDT 12/27/2024 11:47 AM CDT Narrative SHONA RAMIREZ - 12/31/2024 12:00 PM CDT Specimen received [...] characteristics have been verified by the [facility] Microbiology [facility]. For questions about this culture, contact the Microbiology Laboratory at [phone]. Interpretive data was last revised on 24. us Dorothea Stephen NP LAB MICROBIOLOGY - GENERA L ORDERABLES Final [place] [address] * Blood culture Blood (12/27/2024 9:05 AM CDT) Report Final Report: No growth Blood 12/27/2024 9:05 AM CDT 12/27/2024 11:47 AM CDT [facility] - 12/31/2024 12:00 PM CDT Specimen received [...] characteristics have been verified by the [facility] Microbiology [facility]. For questions about this culture, contact the Microbiology Laboratory at [phone]. Interpretive data was last revised on 24. Dorothea Stephen NP LAB MICROBIOLOGY - GENERA L ORDERABLES Final Result [facility] Department [place] [address] * Hepatitis panel, acute Blood (11/03/2024 2:31 PM CDT) Hep A IgM Nonreactive Nonreactive Hep B core IgM Nonreactive Nonreactive [facility] Hep C Ab Nonreactive Nonreactive [facility] Comment:Antibodies to HCV no t detected. Does NOT exclude the possibility of recent exposure to HCV. Current interpretive data was last revised on 22 HepBsAg Nonreactive Nonreactive [facility] Blood 11/03/2024 2:31 PM CDT 11/03/2024 2:38 PM CDT us Mar George MD LAB MICROBIOLOGY - GENERAL ORDERABLES Final Result [facility] RAMIREZ [facility] Department [place] [address] * THINPREP TIS PAP REFLEX HPV mRNA E6/E7, CHLAMYDIA/N.GONORRHOEAE (09/14/2016 12:56 PM EDUCATION ANALYST) CLINICAL INFORMATION [facility] HISTORICAL RESULTS Comment: LMP: [facility] HISTORICAL RESULTS PREV. PAP: [facility] HISTORICAL RESULTS Comment:2011 PREV. BX: [facility] HISTORICAL RESULTS Comment:UNKNOWN SOURCE: [facility] HISTORICAL RESULTS Comment:Cervix, Endocervix STATEMENT OF ADEQUACY: [facility] HISTORICAL RESULTS Comment:Satisfactory for savana luation. Endocervical/transformation zone component present. INTERPRETATION/RES ULT: [facility] HISTORICAL RESULTS Comment:Negative for intraep ithelial lesion or malignancy. COMMENT: [facility] HISTORICAL RESULTS Comment:This Pap test has be en evaluated with computer assisted technology. CLOCK AND WATCH ASSEMBLER: [facility] HISTORICAL RESULTS Comment:YQ, CT(ASCP) CT scre ening location: [place] [address] [place] [address] C. trachomatis RNA NOT DETECTED NOT DETECTED [facility] HISTORICAL RESULTS N. gonorrhoeae RNA NOT DETECTED NOT DETECTED [facility] HISTORICAL RESULTS COMMENT [facility] HISTORICAL RESULTS Comment: This test was performed using the APTIMA COMBO2 Assay ([employer] The analytical performance characteristics of this assay, when used to test SurePath specimens have been determined by [employer]. 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
--- OUTSIDE RECORDS SUMMARY | 2025-03-04 16:45 | XMS_ITS | Encounter Summary ---
Author Organization [facility] Address [address] [place] [address] Phone Care Team Providers Care Assistant Director Of Security Name Role Phone Mo Mitchell MD Primary Care Provider [phone] Reason for Visit * Reason Onset Date Comments Scheduling Appointments 02/01/2025 Encounter Details Date Type Department Care Team (Late st Contact Info) Description 02/01/2025 Telephone [facility] Cardiology [address] [facility] Advanced Medicine 8th [place] [address] [place] [address] Scheduling Appointments [...] Sometimes 01/18/2025 [facility] Utilities Answer Date Recorded In the past [...] often do you attend chur ch or confucianist services? Never 11/29/2024 Do you belong to any clubs o r organizations such as mormonism groups, unions, fraternal or athletic groups, or [...] time in the past 12 m [facility], were you homeless or living in a fpc (including now)? No 11/29/2024 Personal Safety Answer Date Recorded Have you ever been in or are you currently in a harmful physical or emotional relationship or is someone making you feel afraid or unsafe? 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 Patient declined and asked for a . [...] documented as of this encounter Care Teams Assistant Director Of Security Relationship Specialty Start Date End Date Mo Mitchell MD [address] [facility] [place] [address] PCP - General Internal Medicine 10/31/24 documented as of this encounter
--- OUTSIDE RECORDS SUMMARY | 2025-03-04 16:45 | XMS_ITS | Encounter Summary ---
Author Organization [facility] Facility Care Team Providers Care Materials Intern Name Role Phone Christian Merritt MD Primary Care Provider [phone] Mo Mitchell MD Primary Care Provider [phone] Neeta Ott RN Unavailable [phone] Encounter Details Date Type Department Care Team (Latest Contact Info) Description 12/09/2016 Orders Only [facility] CLINCONV Provider, MD Serge [address] [place] [address] Social History Tobacco Use Types Packs/Day Years Used Date Smoking Tobacco: Never Assessed Comments Unknown Sex and Gender Information Value Date Recorded Sex Assigned at Not on file 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
--- OUTSIDE RECORDS SUMMARY | 2025-03-04 16:45 | XMS_ITS | Encounter Summary ---
Author Organization [facility] Facility Care Team Providers Care Pump Servicer Supervisor Name Role Phone Christian Merritt MD Primary Care Provider [phone] Mo Mitchell MD Primary Care Provider [phone] Neeta tOt RN Unavailable [phone] Encounter Details Date Type Department Care Team (Latest Contact Info) Description 12/06/2016 Orders Only [facility] CLINCONV Provider, MD Serge [address] [place] [address] Social History Tobacco Use Types Packs/Day Years Used Date Smoking Tobacco: Never Assessed Comments Unknown Sex and Gender Information Value Date Recorded Sex Assigned at Not on file 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
--- OUTSIDE RECORDS SUMMARY | 2025-03-04 16:45 | XMS_ITS | Encounter Summary ---
Author Organization [facility] Facility Care Team Providers Care Flight Operation Coordinator Name Role Phone Christian Merritt MD Primary Care Provider [phone] Mo Mitchell MD Primary Care Provider [phone] Neeta Ott RN Unavailable [phone] Encounter Details Date Type Department Care Team (Latest Contact Info) Description 01/05/2017 Orders Only [facility] CLINCONV Provider, MD Serge [address] [place] [address] Social History Tobacco Use Types Packs/Day Years Used Date Smoking Tobacco: Never Assessed Comments Unknown Sex and Gender Information Value Date Recorded Sex Assigned at Not on file Legal Sex Female 8:06 PM MOLD STRIPPER Gender Identity Not on file Sexual Orientation [...] documented as of this encounter Care Teams Flight Operation Coordinator Relationship Specialty Start Date End Date Christian Merritt MD PCP - General Emergency Medicine 06/10/22 10/30/24 Mo Mitchell MD [address] [place] [address] PCP - General Internal Medicine 10/31/24 Neeta Ott, RN [address] [address] [facility] Out[facility] Multineedle Shirrer 11/29/24 12/06/24 documented as of this encounter
[2025-03-04 17:16] LABS: Hematocrit 34.1 % (37.0-47.0); Hemoglobin 11.8 g/dL (12.0-15.0); Immature Granulocyte Percent A 0.3 % (0-0.5); Lymphocytes Absolute Auto 1.52 K/mm3 (0.9-3.2); Mean Corpuscular HGB Conc 34.6 g/dl (32-36); Mean Corpuscular Hemoglobin 34.0 pg (26-34); Mean Corpuscular Volume 98.3 fl (80-100); Nucleated Red Blood Cells Absolute Auto 0.000 K/mm3 (0.0-0.012); Nucleated Red Blood Cells Perc 0.0 % (0.0-0.2); Platelet Count Result 219 k/mm3 (150-375); Red Blood Count 3.47 M/mm3 (4.2-5.4); White Blood Count 4.0 K/mm3 (4.5-10.0)
[2025-03-04 17:29] LABS: BEDSIDEPREGUCG Negative (Negative)
[2025-03-04 17:36] LABS: Alanine Aminotransferase 62 U/L (6-35); Albumin Level 4.4 g/dL (3.5-5.1); Alkaline Phosphatase 135 U/L (38-126); Anion Gap 16 mmol/L (4-12); Aspartate Amino Transferase 104 U/L (14-36); Bilirubin,Total 1.2 mg/dL (0.2-1.3); Blood Urea Nitrogen 6 mg/dL (7-17); Calcium 9.1 mg/dL (8.4-10.2); Carbon Dioxide 18 mmol/L (22-30); Chloride 97 mmol/L (98-107); Estimated Glomerular Filt Rate > 60; Glucose 117 mg/dL (65-110); Lipase 168 U/L (23-300); Potassium 2.6 mmol/L (3.4-5.0); Sodium 131 mmol/L (137-145); Total Protein 7.4 g/dL (6.3-8.2)
--- OUTSIDE RECORDS SUMMARY | 2025-03-04 17:38 | XMS_ITS | Encounter Summary ---
Author Organization [facility] Address [address] [place] [address] Phone Care Team Providers Care Nuclear Medical Technologist Name Role Phone Mo Mitchell MD Primary Care Provider [phone] Reason for Visit * Reason Onset Date Comments Scheduling Appointments 02/01/2025 Encounter Details Date Type Department Care Team (Late st Contact Info) Description 02/01/2025 Telephone [facility] Cardiology [address] [facility] Advanced Medicine 8th [place] [address] [place] [address] Scheduling Appointments [...] materials from doctor or pharmacy Sometimes 01/18/2025 [facility] Utilities Answer Date Recorded In the [...] often do you attend chur ch or buddhist services? Never 11/29/2024 Do you belong to any clubs o r organizations such as latter-day groups, unions, fraternal or athletic groups, or [...] any time in the past 12 m [facility], were you homeless or living in a intermediate (including now)? No 11/29/2024 Personal Safety Answer Date Recorded Have you ever been in or are you currently in a harmful physical or emotional relationship or is someone making you feel afraid or unsafe? Denies 10/31/2024 Comments No Sex and Gender Information Value Date Recorded Sex Assigned at Not on file Legal Sex Female 8:06 PM AOC DIRECTOR COMBAT PLANS OFFICER Gender Identity Not on file Sexual Orientation Not on file documented as of this encounter Miscellaneous Notes * Telephone Encounter - Ludivina Shaw - 02/01/2025 4:01 PM CDT Called patient and offered 02/05/25 with Ear Specialist. Patient declined and asked for a . [...] documented as of this encounter Care Teams Nuclear Medical Technologist Relationship Specialty Start Date End Date Mo Mitchell MD [address] [facility] [address] PCP - General Internal Medicine 10/31/24 documented as of this encounter
--- OUTSIDE RECORDS SUMMARY | 2025-03-04 17:38 | XMS_ITS | Encounter Summary ---
Author Organization [facility] Facility Care Team Providers Care Wire Frame Lampshade Maker Name Role Phone Christian Merritt MD Primary Care Provider [phone] Mo Mitchell MD Primary Care Provider [phone] Neeta Ott RN Unavailable [phone] Encounter Details Date Type Department Care Team (Latest Contact Info) Description 12/09/2016 Orders Only [facility] CLINCONV Provider, MD Serge [address] [place] [address] Social History Tobacco Use Types Packs/Day Years Used Date Smoking Tobacco: Never Assessed Comments Unknown Sex and Gender Information Value Date Recorded Sex Assigned at Not on file 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
--- OUTSIDE RECORDS SUMMARY | 2025-03-04 17:38 | XMS_ITS | Encounter Summary ---
Author Organization [facility] Facility Care Team Providers Care Social Service Agency Director Name Role Phone Christian Merritt MD Primary Care Provider [phone] Mo Mitchell MD Primary Care Provider [phone] Neeta Ott RN Unavailable [phone] Encounter Details Date Type Department Care Team (Latest Contact Info) Description 12/06/2016 Orders Only [facility] CLINCONV Provider, MD Serge [address] [place] [address] Social History Tobacco Use Types Packs/Day Years Used Date Smoking Tobacco: Never Assessed Comments Unknown Sex and Gender Information Value Date Recorded Sex Assigned at Not on file 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
--- OUTSIDE RECORDS SUMMARY | 2025-03-04 17:38 | XMS_ITS | Clinical Summary ---
Author Organization [facility] dipika [facility] Address [address] [place] [address] [place] [address] Care Team Providers Care Collar Sewer Name Role Phone Unavailable Primary Care Provider [...]
--- OUTSIDE RECORDS SUMMARY | 2025-03-04 17:38 | XMS_ITS | Clinical Summary ---
Author Organization [facility] Address [address] [place] [address] Care Team Providers Care District Traffic Chief Name Role Phone Mo Mitchell MD Primary Care Provider [phone] Allergies Active Allergy Reactions Criticality Noted Date [...] for diarrhea 100 mL 5 Active multivit vfmudkap-wndz-[id number] A-calcium (THERA-M) 9 mg iron-400 mcg tabletIndicatio [...] daily until blood thinner is received from [facility] hand office Indications: treatment to prevent a heart [...] Care Team Description 02/22/2025 Home Care Visit [address] [place] [address] Nayely Pedroza, RN SN VIRTUAL NON OASIS DISCHARGE 02/20/2025 Home Care Visit [address] [place] [address] Nayely Pedroza, RN TELEPHONE ENCOUNTER 02/19/2025 Home Care Visit [address] [place] [address] Nayely Pedroza, RN TELEPHONE ENCOUNTER 02/15/2025 Orders Only [facility] Cardiothoracic Surgery [address] [facility] 8th Floor [address] Room [phone] [place] [phone] Bo Fried MD Mass of left cardiac ventricle (Primary Dx) 02/15/2025 Telephone [facility] Services [address] [place] [address] Unknown, Notinfile 02/14/2025 Telephone [facility] Home Care Services [address] [facility] [address] [place] [address] Salas, Summer 02/13/2025 Orders Only [facility] Cardiothoracic Surgery [address] [facility] 8th Floor [address] Room [address] [phone] Bo Fried MD Mass of left cardiac ventricle (Primary Dx) 02/12/2025 2:30 PM CDT Home Care Visit [address] [place] [address] [place] [address] Nayely Pedroza, BRITTANIE SN HOME VISIT 02/07/2025 10:00 AM CDT Home Care Visit [address] [place] [address] Isabelle Campbell, OT OT INITIAL EVALUATION 02/07/2025 9:00 AM CDT Home Care Visit [address] [place] [address] Pia Swan, RN SN HOME VISIT 02/07/2025 Telephone [facility] Infectious Diseases [address] [facility] [address] [place] [phone] Rosangela Simental, ROSA MARIA 02/06/2025 2:00 PM CDT Home Care Visit [address] [place] [address] Thang Solorzano, PT PT INITIAL EVALUATION 02/05/2025 Home Care Visit [address] [place] [place] [address] Pia Moon, BRITTANIE TELEPHONE ENCOUNTER 02/01/2025 Telephone [facility] Cardiology [address] [facility] 8th Floor [address] [place] [phone] Nani Melchor, STAN Scheduling Appointments 01/31/2025 2:00 PM CDT Home Care Visit [address] [place] [address] Nayely Pedroza, BRITTANIE SN OASIS RECERTIFICATION 01/31/2025 Plan of Care Documentation [address] [place] [address] 01/29/2025 Home Care Visit [address] [place] [address] Nayely Pedroza, BRITTANIE TELEPHONE ENCOUNTER 01/28/2025 Home Care Visit [address] [place] [address] Nayely Pedroza, BRITTANIE TELEPHONE ENCOUNTER 01/24/2025 9:40 AM CDT Office Visit [facility] Infectious Diseases [address] [facility] [address] [place] [phone] Dorothea Stephen, BRAXTON MSSA bacteremia (Primary Dx) 01/22/2025 12:40 PM CDT - 01/22/2025 11:59 PM CDT Hospital Encounter [facility] [address] [place] [address] Discharge Disposition: Discharge to home or self care 01/22/2025 12:00 PM CDT Home Care Visit [address] [place] [address] Nayely Pedroza, BRITTANIE SN HOME VISIT 01/18/2025 10:30 AM CDT Home Care Visit [address] [place] [address] Billy Zarco, BRITTANIE SN OASIS RESUMPTION OF CARE 01/18/2025 Plan of Care Documentation [address] [place] [address] 01/17/2025 Orders Only [facility] Medical [facility] Cardiology [address] [place] [phone] Oz Noble MD 01/17/2025 Home Care Visit [address] [place] [address] Pia Moon, RN SN OASIS TRANSFER W/OUT DC 01/16/2025 Home Care Visit [address] [place] [address] Pia Moon, RN TELEPHONE ENCOUNTER 01/15/2025 10:00 AM CDT Office Visit [facility] Cardiothoracic Surgery [address] [facility] Advanced Medicine 8th Floor [address] Room [address] [place] [phone] Bo Fried MD Mass of left cardiac ventricle 01/15/2025 8:15 AM CDT - 01/15/2025 11:59 PM CDT Hospital Encounter [facility] Cardiac Diagnostic Lab [address] [facility] 8th [place] [phone] Bo Fried MD MSSA bacteremia; Thrombocytopenia Discharge Disposition: Discharge to home or self care 01/14/2025 Telephone [facility] Home Care Services [address] [facility] [address] [place] [address] Ondina Salas [facility] 01/11/2025 Telephone [facility] Home Care [facility] [address] [facility] [address] [place] [address] Vidhi Martin 01/09/2025 Telephone [facility] Infectious Diseases [address] [facility] [address] [place] [phone] Sidney Gould Jr., RN 01/08/2025 Telephone [facility] Home Care Services [address] [place] [address] [address] [place] [address] Vidhi Martin 01/01/2025 2:10 PM CDT - 01/01/2025 11:59 PM CDT Hospital Encounter [facility] [address] [place] [address] Discharge Disposition: Discharge to home or self care 01/01/2025 2:00 PM CDT Home Care Visit [address] [place] [address] Nayely Pedroza, BRITTANIE SN HOME VISIT 01/01/2025 Telephone [facility] Infectious Diseases [address] [facility] [address] [place] [address] Sidney Gould Jr., RN 12/31/2024 Telephone [facility] Cardiology [address] [place] [address] 8th [place] [address] [place] [phone] Nani Melchor NP 12/31/2024 Orders Only [facility] Infectious Diseases [address] [phone] Dorothea Stephen, BRAXTON 12/28/2024 11:00 AM CDT Home Care Visit [address] [place] [address] Nayely Pedroza RN SN HOME VISIT 12/27/2024 2:00 PM CDT Home Care Visit [address] [place] [address] Thang Solorzano, PT PT DISCIPLINE DISCHARGE 12/27/2024 9:13 AM CDT - 12/27/2024 11:59 PM CDT Hospital Encounter [facility] [address] [place] [address] Discharge Disposition: Discharge to home or self care 12/27/2024 8:40 AM CDT Office Visit [facility] Infectious Diseases [address] [address] Dorothea Stephen, BRAXTON MSSA bacteremia (Primary Dx); Encounter for screening examination for sexually transmitted disease 12/27/2024 Telephone [facility] Infectious Diseases [address] [facility] [address] [place] [phone] Dorothea Stephen, BRAXTON 12/25/2024 Telephone [facility] [address] [facility] [address] [place] [address] Veronika Ocampo MD 12/21/2024 2:00 PM CDT Home Care Visit [address] [place] [address] Thang Solorzano, PT PT HOME VISIT 12/21/2024 11:30 AM CDT Home Care Visit [address] [place] [address] Nayely Pedroza, RN SN HOME VISIT 12/21/2024 Orders Only [facility] Cardiology [address] [facility] 8th [place] [address] [place] [phone] Nani Melchor, BRAXTON 12/19/2024 11:00 AM CDT Home Care Visit [address] [place] [address] Thang Solorzano, PT PT HOME VISIT 12/19/2024 Home Care Visit [address] [place] [address] Thang Solorzano, PT CASE COMMUNICATION 12/13/2024 10:45 AM CDT Home Care Visit [address] [place] [address] Khushboo Jarvis, PT PT HOME VISIT 12/11/2024 2:30 PM CDT Home Care Visit [address] [place] [address] Khushboo Jarvis, PT PT HOME VISIT 12/11/2024 1:00 PM CDT Home Care Visit [address] [place] [address] Nayely Pedroza, RN SN HOME VISIT 12/07/2024 SHOP/CHAP Subsequent Outreach [facility] OP CASE MANAGEMENT [address] [place] [address] Neeta Ott, RN 12/06/2024 12:30 PM CDT Home Care Visit [address] [place] [address] Nayely Pedroza, RN SN HOME VISIT 12/06/2024 11:00 AM CDT Home Care Visit [address] [place] [address] Isabelle Campbell, OT OT INITIAL EVALUATION 12/05/2024 SHOP/CHAP Subsequent Outreach [facility] OP CASE MANAGEMENT [address] [place] [address] Neeta Ott, BRITTANIE 12/04/2024 SHOP/CHAP Subsequent Outreach [facility] OP CASE MANAGEMENT [address] [place] [address] Neeta Ott, RN 12/04/2024 Home Care Visit [address] [place] [address] Nayely Pedroza, RN CARE CONFERENCE 12/03/2024 1:10 PM CDT Telemedicine [address] [place] [address] Yamilex Mathew, BRAXTON Torsades de pointes (HCC) (Primary Dx); MSSA bacteremia 12/03/2024 10:00 AM CDT Home Care Visit [address] [place] [address] Thang Solorzano, PT PT INITIAL EVALUATION 12/03/2024 Home Care Visit [address] [place] [address] Billy Zarco, RN TELEPHONE ENCOUNTER 12/03/2024 Home Care Visit [address] [place] [address] Thang Solorzano, PT TELEPHONE ENCOUNTER from Last [...] In the past 12 months has e [employer], gas, oil, or water company threatened to [...] often do you attend chur ch or hoahaoism services? Never 11/29/2024 Do you belong to any clubs o r organizations such as adventist groups, unions, fraternal or athletic groups, or [...] time in the past 12 m [facility], were you homeless or living in a halfway (including now)? No 11/29/2024 Personal Safety Answer Date Recorded Have you ever been in or are you currently in a harmful physical or emotional relationship or is someone making you feel afraid or unsafe? Denies 10/31/2024 Comments No Sex and Gender Information Value Date Recorded Sex Assigned at Not on file Legal Sex Female 8:06 PM GROUND SERVICE EQUIPMENT MECHANIC Gender Identity Not on file Sexual [...] Date/Time Associated Diagnosis Comments BLOOD MISC TO [place] Routine 01/22/2025 12 :40 PM CDT EGFR [...] E6/E7, CHLAMYDIA/N.GONORRHOEA E Routine 09/14/2016 12:56 PM GROUND SERVICE EQUIPMENT MECHANIC from Last 3 Months or Most Recently Relevant to Health Maintenance Results * BLOOD MISC TO [place] (01/22/2025 12:40 PM CDT) Test name, chem CDTA,CARBOHYD RATE DEFICIENT TRANSFERRIN,A DULT SCRE [place] [facility] Comment:Credited, test not i ndicated. Misc see comment SHONA RAMIREZ Comment:Credited, test not i ndicated. Blood 01/22/2025 12:4 0 PM CDT 01/24/2025 2:14 PM CDT us Notinfile Unknown LAB BLOOD ORDERABLES Final Res ult SHONA BACK [facility] [place] [address] [place] [facility] * eGFR (01/22/2025 12:40 PM [...] LAB BLOOD ORDERABLES Final Res ult SHONA [facility] One [facility] [place] [address] * Differential, auto (01/22/2025 12:40 PM CDT) Neutrophil abs 2.80 1.50 - 6.50 K/cumm Imm gran abs 0.00 0.00 - 0.10 K/cumm [facility] Lymphocyte abs 2.66 0.80 - 3.30 K/cumm [facility] Monocyte abs 0.21 0.20 - 0.80 K/cumm [facility] Eosinophil abs 0.14 0.00 - 0.50 K/cumm [facility] Basophil abs 0.05 0.00 - 0.10 K/cumm [facility] Neutrophil pct 47.7 % [facility] Comment: Interpretive Data Percent cell count reference ranges are not reported, since discordance with absolute values may lead to misinterpretation of CBC data. Current Interpretive Data was last revised on 2017. Imm gran pct 0.0 % [facility] Comment: Interpretive Data Percent cell count reference ranges are not reported, since discordance with absolute values may lead to misinterpretation of CBC data. Current Interpretive Data was last revised on 2017. Lymphocyte pct 45.4 % [facility] Comment: Interpretive Data Percent cell count reference ranges are not reported, since discordance with absolute values may lead to misinterpretation of CBC data. Current Interpretive Data was last revised on 2017. Monocyte pct 3.6 % [facility] Comment: Interpretive Data Percent cell count reference ranges are not reported, since discordance with absolute values may lead to misinterpretation of CBC data. Current Interpretive Data was last revised on 2017. Eosinophil pct 2.4 % [facility] Comment: Interpretive Data Percent cell count reference ranges are not reported, since discordance with absolute values may lead to misinterpretation of CBC data. Current Interpretive Data was last revised on 2017. Basophil pct 0.9 % [facility] Comment: Interpretive Data Percent cell count reference ranges are not reported, since discordance with absolute values may lead to misinterpretation of CBC data. Current Interpretive Data was last revised on 2017. Blood 01/22/2025 12:4 0 PM CDT 01/22/2025 3:52 PM CDT us Notinfile Unknown LAB BLOOD ORDERABLES Final Res ult Performing Organization Address City/[facility]/ZIP Co de Phone Number [facility] [place] [address] * (ABNORMAL) Iron profile w/ IBC (01/22/2025 12:40 PM CDT) [facility] Iron 60 35 - 145 mcg/dL TIBC 322 250 - 400 mcg/dL [facility] Transferrin saturation 19(L) 20 - 50 % [facility] Blood 01/22/2025 12:4 0 PM CDT 01/22/2025 3:52 PM CDT us Notinfile Unknown LAB BLOOD ORDERABLES Final Res ult Performing Organization Address [facility] Co de Phone Number [facility] [place] [address] * (ABNORMAL) CBC with auto differential (01/22/2025 12:40 PM CDT) [facility] WBC 5.86 3.80 - 9.90 K/cumm Hgb 12.9 11.9 - 15.5 g/dL [facility] Hct 39.0 35.6 - 45.5 % [facility] Plt 170 150 - 400 K/cumm [facility] MPV 11.0 9.1 - 12.3 fL [facility] RBC 4.01 3.90 - 5.20 M/cumm [facility] MCV 97.3(H) 81.3 - 96.4 fL [facility] MCH 32.2 27.1 - 33.3 pg [facility] MCHC 33.1 32.3 - 35.7 g/dL [facility] RDW CV 13.4 11.1 - 14.9 % [facility] RDW SD 47.5 35.7 - 48.1 fL [facility] NRBC abs 0.00 0.00 - 0.01 K/cumm [facility] Blood 01/22/2025 12:4 0 PM CDT 01/22/2025 3:52 PM CDT us Notinfile Unknown LAB BLOOD ORDERABLES Final Res ult Performing Organization Address City/[facility] Co de Phone Number [facility] [place] [address] * Magnesium (01/22/2025 12:40 PM CDT) Magnesium 2.0 1.4 - 2.5 mg/dL Blood 01/22/2025 12:4 0 PM CDT 01/22/2025 3:52 PM CDT us Notinfile Unknown LAB BLOOD ORDERABLES Final Res ult Performing Organization Address [facility] Co de Phone Number [facility] [place] [address] * Folate (01/22/2025 12:40 PM CDT) Folic acid >20.0 >=5.0 ng/mL Blood 01/22/2025 12:4 0 PM CDT 01/22/2025 3:52 PM CDT us Notinfile Unknown LAB BLOOD ORDERABLES Final Res ult Performing Organization Address City/[facility] [place] [address] * Vitamin B12 (01/22/2025 12:40 PM CDT) Vitamin B12 815 230 - 1,250 pg/mL Blood 01/22/2025 12:4 0 PM CDT 01/22/2025 3:52 PM CDT us Notinfile Unknown LAB BLOOD ORDERABLES Final Res ult SHONA [facility] [place] [address] * (ABNORMAL) Comprehensive metabolic panel (01/22/2025 12:40 PM CDT) Sodium 135 135 - 145 mmol/L Potassium, pl 3.4 3.3 - 4.9 mmol/L [facility] Chloride 98 97 - 110 mmol/L [facility] CO2 23 22 - 32 mmol/L [facility] Anion gap 14 2 - 15 mmol/L [facility] BUN 9 6 - 25 mg/dL [facility] Creatinine 0.63 0.60 - 1.10 mg/dL [facility] Glucose 85 70 - 199 mg/dL [facility] Comment: Interpretive Data Fasting glucose >/= 126 [...] 2022. Calcium 10.1 8.5 - 10.3 mg/dL [facility] Bilirubin, total 0.4 0.1 - 1.2 mg/dL [facility] Protein, pl 7.5 6.5 - 8.5 g/dL [facility] Albumin 4.1 3.5 - 5.0 g/dL [facility] Alk phos 139(H) 40 - 130 Units/L [facility] ALT 33 7 - 45 Units/L [facility] AST 58(H) 10 - 45 Units/L [facility] Blood 01/22/2025 12:4 0 PM CDT 01/22/2025 3:52 PM CDT us Notinfile Unknown LAB BLOOD ORDERABLES Final Res ult SHONA [facility] One [facility] [place] [address] * TRANSTHORACIC ECHO (TTE) COMPLETE W DOPPLER/CF W CONTRAST (01/15/2025 9:57 AM CDT) EF Mod BP 55 % CONS SCIMAGE Anatomical Region Laterality Modality Ultrasound 01/15/2025 8:50 AM CDT Narrative 01/15/2025 11:28 AM CDT [facility] Cardiac [place] [address] Transthoracic Echocardiographic Report Patient Name: HAYLEY LEÓN L : 1990 (34y 11m) Gender: F Study Date: 01/15/2025 08:50:13 AM Ht(Inch): 61 Wt(Lb): 102.07 BSA: 1.41 Retail Manager In Training: Roza. Watkins [employer] Location: [facility] Order Provider: BO FRIED Heart [...] Note Italo Hill MD PhD - 01/15/2025 [facility] Cardiac [place] [address] Transthoracic Echocardiographic Report Patient Name: HAYLEY LEÓN L : 1990 (34y 11m) Gender: F Study Date: 01/15/2025 08:50:13 AM Ht(Inch): 61 Wt(Lb): 102.07 BSA: 1.41 Retail Manager In Training: Roza. Watkins [facility] Location: [facility] Order Provider:BO FRIED Heart Rate: [...] LA Length 2C 3.64 cm MV Decel [id number] msec [ 104.00 - 258.00 ] LA [...] 01/01/2025 6:14 PM CDT us Dorothea Jaramillo'Brien INSURANCE ACCOUNT MANAGER LAB BLOOD ORDERABLES Krystyna l Result [facility] Department [place] [address] * (ABNORMAL) Basic metabolic panel (01/01/2025 2:10 PM CDT) Sodium 139 135 - 145 mmol/L Potassium, pl 2.9(L) 3.3 - 4.9 mmol/L [facility] Chloride 98 97 - 110 mmol/L [facility] CO2 26 22 - 32 mmol/L [facility] Anion gap 15 2 - 15 mmol/L [facility] BUN 11 6 - 25 mg/dL [facility] Creatinine 0.63 0.60 - 1.10 mg/dL [facility] Glucose 91 70 - 199 mg/dL [facility] Comment: Interpretive Data Fasting glucose >/= 126 [...] 2022. Calcium 9.2 8.5 - 10.3 mg/dL [facility] Blood 01/01/2025 2:10 PM CDT 01/01/2025 6:04 PM CDT Dorothea Stephen INSURANCE ACCOUNT MANAGER LAB BLOOD ORDERABLES Krystyna l Result Performing Organization Address City/[facility]/ZIP Co de Phone Number [facility] [place] [address] * Glucose, random (Outreach) (12/27/2024 9:13 AM [...] NP LAB BLOOD ORDERABLES Krystyna meyers Result [facility] [place] [address] * eGFR (12/27/2024 9:13 AM CDT) eGFR [...] 12/27/2024 10:50 AM CDT us Dorothea Stephen INSURANCE ACCOUNT MANAGER LAB BLOOD ORDERABLES Krystyna meyers Result SHONA [facility] One [facility] [place] [address] * Differential, auto (12/27/2024 9:13 AM CDT) Neutrophil abs 3.36 1.50 - 6.50 K/cumm Imm gran abs 0.01 0.00 - 0.10 K/cumm [facility] Lymphocyte abs 1.97 0.80 - 3.30 K/cumm [facility] Monocyte abs 0.37 0.20 - 0.80 K/cumm [facility] Eosinophil abs 0.18 0.00 - 0.50 K/cumm [facility] Basophil abs 0.04 0.00 - 0.10 K/cumm [facility] Neutrophil pct 56.7 % [facility] Comment: Interpretive Data Percent cell count reference ranges are not reported, since discordance with absolute values may lead to misinterpretation of CBC data. Current Interpretive Data was last revised on 2017. Imm gran pct 0.2 % [facility] Comment: Interpretive Data Percent cell count reference ranges are not reported, since discordance with absolute values may lead to misinterpretation of CBC data. Current Interpretive Data was last revised on 2017. Lymphocyte pct 33.2 % [facility] Comment: Interpretive Data Percent cell count reference ranges are not reported, since discordance with absolute values may lead to misinterpretation of CBC data. Current Interpretive Data was last revised on 2017. Monocyte pct 6.2 % [facility] Comment: Interpretive Data Percent cell count reference ranges are not reported, since discordance with absolute values may lead to misinterpretation of CBC data. Current Interpretive Data was last revised on 2017. Eosinophil pct 3.0 % [facility] Comment: Interpretive Data Percent cell count reference ranges are not reported, since discordance with absolute values may lead to misinterpretation of CBC data. Current Interpretive Data was last revised on 2017. Basophil pct 0.7 % [facility] Comment: Interpretive Data Percent cell count reference ranges are not reported, since discordance with absolute values may lead to misinterpretation of CBC data. Current Interpretive Data was last revised on 2017. Blood 12/27/2024 9:13 AM CDT 12/27/2024 10:37 AM CDT Dorothea Stephen INSURANCE ACCOUNT MANAGER LAB BLOOD ORDERABLES Krystyna l Result Performing Organization Address City/[facility]/ZIP Co de Phone Number [facility] [place] [address] * (ABNORMAL) Comprehensive metabolic panel, without glucose (Outreach) (12/27/2024 9:13 AM CDT) Sodium 136 135 - 145 mmol/L Potassium, pl 2.9(L) 3.3 - 4.9 mmol/L [facility] Chloride 98 97 - 110 mmol/L [facility] CO2 24 22 - 32 mmol/L [facility] Anion gap 14 2 - 15 mmol/L [facility] BUN 9 6 - 25 mg/dL [facility] Creatinine 0.64 0.60 - 1.10 mg/dL [facility] Calcium 9.7 8.5 - 10.3 mg/dL [facility] Protein, pl 8.2 6.5 - 8.5 g/dL [facility] Albumin 4.2 3.5 - 5.0 g/dL [facility] Bilirubin, total 0.7 0.1 - 1.2 mg/dL [facility] Alk phos 175(H) 40 - 130 Units/L [facility] AST 51(H) 10 - 45 Units/L [facility] ALT 25 7 - 45 Units/L [facility] Blood 12/27/2024 9:13 AM CDT 12/27/2024 10:38 AM CDT Dorothea Stephen INSURANCE ACCOUNT MANAGER LAB BLOOD ORDERABLES Krystyna l Result Performing Organization Address [facility]/ZIP Co de Phone Number [facility] [place] [address] * (ABNORMAL) CBC with auto differential (12/27/2024 9:13 AM CDT) [facility] WBC 5.93 3.80 - 9.90 K/cumm Hgb 13.9 11.9 - 15.5 g/dL [facility] Hct 40.1 35.6 - 45.5 % [facility] Plt 138(L) 150 - 400 K/cumm [facility] MPV 11.4 9.1 - 12.3 fL [facility] RBC 4.23 3.90 - 5.20 M/cumm [facility] MCV 94.8 81.3 - 96.4 fL [facility] MCH 32.9 27.1 - 33.3 pg [facility] MCHC 34.7 32.3 - 35.7 g/dL [facility] RDW CV 13.0 11.1 - 14.9 % [facility] RDW SD 45.3 35.7 - 48.1 fL [facility] NRBC abs 0.00 0.00 - 0.01 K/cumm [facility] Blood 12/27/2024 9:13 AM CDT 12/27/2024 10:37 AM CDT us Dorothea Stephen NP LAB BLOOD ORDERABLES Krystyna l Result Performing Organization Address City/[facility] Hospital/ZIP Co de Phone Number [facility] [place] [address] * Magnesium (12/27/2024 9:13 AM CDT) [facility] Magnesium 1.9 1.4 - 2.5 mg/dL Blood 12/27/2024 9:13 AM CDT 12/27/2024 10:50 AM CDT us Mo Villatoro MD LAB BLOOD ORDERABLES Final Resul t [facility] [place] [address] * Blood culture Blood (12/27/2024 9:05 AM [...] characteristics have been verified by the [facility]. For questions about this culture, contact the Microbiology Laboratory at [phone]. Interpretive data was last revised on 24. us Dorothea Stephen NP LAB MICROBIOLOGY - GENERA L ORDERABLES Final [place] [address] * Blood culture Blood (12/27/2024 9:05 AM CDT) Report Final Report: No growth Blood 12/27/2024 9:05 AM CDT 12/27/2024 11:47 AM CDT Narrative [facility] - 12/31/2024 12:00 PM CDT [...] characteristics have been verified by the [facility]. For questions about this culture, contact the Microbiology Laboratory at [phone]. Interpretive data was last revised on 24. Dorothea Stephen NP LAB MICROBIOLOGY - GENERA L ORDERABLES Final Result [facility] Department [place] [address] * Hepatitis panel, acute Blood (11/03/2024 2:31 PM CDT) Hep A IgM Nonreactive Nonreactive Hep B core IgM Nonreactive Nonreactive [facility] Hep C Ab Nonreactive Nonreactive [facility] Comment:Antibodies to HCV no t detected. Does NOT exclude the possibility of recent exposure to HCV. Current interpretive data was last revised on 22 HepBsAg Nonreactive Nonreactive [facility] Blood 11/03/2024 2:31 PM CDT 11/03/2024 2:38 PM CDT us Mar George MD LAB MICROBIOLOGY - GENERAL ORDERABLES Final Result SHONA RAMIREZ [facility] [place] [address] * THINPREP TIS PAP REFLEX HPV mRNA E6/E7, CHLAMYDIA/N.GONORRHOEAE (09/14/2016 12:56 PM GROUND SERVICE EQUIPMENT MECHANIC) CLINICAL INFORMATION [facility] HISTORICAL RESULTS Comment: LMP: [facility] HISTORICAL RESULTS PREV. PAP: [facility] HISTORICAL RESULTS Comment:2011 PREV. BX: [facility] HISTORICAL RESULTS Comment:UNKNOWN SOURCE: [facility] HISTORICAL RESULTS Comment:Cervix, Endocervix STATEMENT OF ADEQUACY: [facility] HISTORICAL RESULTS Comment:Satisfactory for savana luation. Endocervical/transformation zone component present. INTERPRETATION/RES ULT: [facility] HISTORICAL RESULTS Comment:Negative for intraep ithelial lesion or malignancy. COMMENT: [facility] HISTORICAL RESULTS Comment:This Pap test has be en evaluated with computer assisted technology. CIO: [facility] HISTORICAL RESULTS Comment:YQ, CT(ASCP) CT scre ening location: [place] [address] [place] [address] C. trachomatis RNA NOT DETECTED NOT DETECTED [facility] HISTORICAL RESULTS N. gonorrhoeae RNA NOT DETECTED NOT DETECTED [facility] HISTORICAL RESULTS COMMENT [facility] HISTORICAL RESULTS Comment: This test was performed using the APTIMA COMBO2 Assay ([employer] The analytical performance characteristics of this assay, when used to test SurePath specimens have been determined by [facility]. 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
--- OUTSIDE RECORDS SUMMARY | 2025-03-04 17:39 | XMS_ITS | Encounter Summary ---
Author Organization [facility] Facility Care Team Providers Care Rn Mobile Name Role Phone Christian Merritt MD Primary Care Provider [phone] Mo Mitchell MD Primary Care Provider Neeta Ott RN Unavailable [phone] Encounter Details Date Type Department Care Team (Latest Contact Info) Description 01/05/2017 Orders Only [facility]INCONV Provider, MD Serge [address] [place] [id number] Social History Tobacco Use Types Packs/Day Years Used Date Smoking Tobacco: Never Assessed Comments Unknown Sex and Gender Information Value Date Recorded Sex Assigned at Not on file 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
[2025-03-04 17:49] LABS: Magnesium 1.0 mg/dL (1.6-2.3)
[2025-03-04 17:49] LABS: Add Urine Microscopic? YES; Appearance Urine Cloudy (Clear); Glucose Urine UA Negative (Negative); Leukocyte Esterase Ur Negative LEU/UL (Negative); Nitrate Urine Negative (Negative); Specific Grav Ur 1.024 (1.001-1.035)
[2025-03-04] MEDS: LACTATED RINGERS 1,000 ML 999 ML IV CONT (18:00)
[2025-03-04] MEDS: KCL 20 MEQ/SW 100 ML 100 ML 50 MEQ IVPB (18:01)
[2025-03-04] MEDS: POTASSIUM CHLORIDE 20 MEQ PACKET (FOR LIQUID) 40 MEQ FEED TUBE ×2 (18:06→22:16)
[2025-03-04] MEDS: HYDROmorphone HCL INJ (*CRX) 2 MG/ML VIAL 0.5 MG IV PUSH ×2 (18:30→22:52)
[2025-03-04] MEDS: LORazepam INJ (*CRX) 2 MG/ML VIAL 0.5 MG IV PUSH (18:31)
[2025-03-04] MEDS: MAGNESIUM SULF 2 GM/WATER 50ML 2 GM/50 ML BAG IVPB ×2 (18:31→22:16)
--- NOTE | 2025-03-04 18:31 | ED.GENADULT ---
HPI - General Adult General Chief complaint: Nausea/Vomiting/Diarrhea Stated complaint: nausea vomiting Time Seen by Provider: 03/04/25 17:26 History of Present Illness HPI narrative: 35-year-old female present to the emergency department for evaluation for worsening nausea vomiting abdominal pain. Patient does have prior history of VFib arrest and does wear a LifeVest. Patient does have a feeding tube in for the last few years. Patient was recently discharged from our hospital in 02/27 for having persistent nausea vomiting. Patient does have prior history marijuana use and tobacco use but states she has not been smoking marijuana. Patient states a few getting home she started having worsening nausea vomiting decreased p.o. intake. Related Data Home Medications ?Medication ?Instructions ?Recorded ?Confirmed ?Last Taken ?Type ferrous sulfate 325 mg (65 mg 325 mg PO BID 03/28/24 03/04/25 02/28/25 History iron) tablet,delayed release folic acid 1 mg tablet 1 mg feeding tube DAILY 03/28/24 03/04/25 02/28/25 History megestrol 20 mg tablet 20 mg feeding tube BID 03/28/24 03/04/25 02/28/25 History multivitamin with folic acid 400 1 tablet PO QAM 03/28/24 03/04/25 02/28/25 History mcg tablet (Thera) thiamine HCl (vitamin B1) 100 mg 100 mg feeding tube DAILY 03/28/24 03/04/25 02/28/25 History tablet vitamin B complex (Vitamins B 1 cap feeding tube QAM 03/28/24 03/04/25 02/28/25 History Complex capsule) lactose-reduced food with fiber See Rx Instructions .Route .COMPLEX 08/07/24 03/04/25 01/26/25 History 0.06 gram-1.5 kcal/mL oral liquid (Jevity 1.5 Chriss) buspirone 15 mg tablet 15 mg feeding tube TID 01/08/25 03/04/25 02/28/25 History cyanocobalamin (vitamin B-12) 1,000 mcg feeding tube MONTHLY 01/08/25 03/04/25 02/12/25 History 1,000 mcg tablet nicotine 14 mg/24 hr daily 1 patch transdermal Q24H 01/08/25 03/04/25 02/25/25 History transdermal patch olanzapine 5 mg tablet 5 mg feeding tube QPM 06/03/04/25 02/28/25 History oxycodone 5 mg tablet 5 mg feeding tube Q8H PRN pain 01/08/25 03/04/25 03/01/25 History ergocalciferol (vitamin D2) 1,250 1,250 mcg feeding tube WEEKLY 02/13/25 03/04/25 02/25/25 History mcg (50,000 unit) capsule famotidine 20 mg tablet 20 mg PO HS 02/13/25 03/04/25 02/28/25 History magnesium oxide 400 mg (241.3 mg 420 mg feeding tube DAILY 02/13/25 03/04/25 02/28/25 History magnesium) tablet methocarbamol 750 mg tablet 750 mg feeding tube .q4hr 02/13/25 03/04/25 02/28/25 History nadolol 20 mg tablet 20 mg feeding tube DAILY 02/13/25 03/04/25 02/28/25 History simethicone 80 mg chewable tablet 80 mg feeding tube QID PRN 02/13/25 03/04/25 Unknown History abdominal distention Allergies Allergy/AdvReac Type Severity Reaction Status Date / Time latex Allergy Rash Verified 03/04/25 21:22 melatonin AdvReac Mild chest Verified 03/04/25 21:22 heaviness Review of Systems Review of Systems: All systems reviewed & are unremarkable except as noted in HPI and below PMFSH Past Medical History Medical History Cardiac arrest with ventricular fibrillation October 2024 Adrenal insufficiency Depression with anxiety Avoidant/restrictive food intake disorder Cannabis abuse Elevated LFTs Mitral valve prolapse Surgical History Surgical History History of percutaneous endoscopic gastrostomy Family History Family History Mother Heart attack Mitral valve prolapse Grandparent Cancer Grandparent Mitral valve prolapse Social History Social History Social History: Surrogate medical decision maker: Jorge Luis Centeno, significant other. Code status: Full code. Smoking packs per day: 0.5 Smoking cigarettes per day: 10.0 Years smoked: 20 Smoking pack-years: 10.00 Smoking status: Current every day smoker Tobacco type: cigarettes Alcohol intake: current Drinks per week: 4 Alcohol use details: States she drinks 1 pint a week Substance use: former Substance use type: marijuana Other substance usage details: weekly Last use: 01/22/2025 Do You Feel Safe in your Home?: Yes Lack of Transportation: No Lack of Food: Never True Current Housing: I Have Housing Concerned About Future Housing: No Difficulty Paying Gas/Electric Bills: No Difficulty Paying for Meds: No Currently Unemployed: No Education: Decline to Answer Difficulty w/ Childcare or Family Care: No Living arrangements: with family Additional living arrangements comments: with 7 year old son and fianc? Occupation/Education: unemployed Spiritual care concerns: No Agree to blood products: Yes Exam Narrative: APPEARANCE: Ill-appearing HEAD: normocephalic, atraumatic. EYES: PERRLA/EOMI, conjunctivae clear. NOSE: Normal no drainage EARS:TMS clear with good light reflex. THROAT: Pharynx clear, no exudate. NECK: Supple. No adenopathy, no masses. RESPIRATORY: Airway patent, respirations nonlabored. Clear to auscultation bilaterally, no rales, rhonchi, wheezing. CARDIOVASCULAR: Regular rate and rhythm without murmurs rubs or gallops. ABDOMINAL: Soft, nontender, nondistended, normal bowel sounds MUSCULOSKELETAL: Moves all extremities. Strength/ROM intact, No edema, No calf tenderness. NEURO: Alert. Cranial nerves II through XII intact. Good gait. Good coordination SKIN: Warm, dry. Normal Color Course Vital Signs Vital signs: Vital Signs Temperature 98.0 F 03/04/25 16:46 Pulse Rate 129 H 03/04/25 16:46 Respiratory Rate 16 03/04/25 16:46 Blood Pressure 131/92 H 03/04/25 16:46 Pulse Oximetry 100 03/04/25 16:46 Oxygen Delivery Room Air 03/04/25 16:46 Temperature 98.2 F 03/04/25 20:40 Pulse Rate 70 03/04/25 20:40 Respiratory Rate 16 03/04/25 20:40 Blood Pressure 124/76 03/04/25 20:40 Pulse Oximetry 100 03/04/25 20:40 Oxygen Delivery Room Air 03/04/25 21:46 Medical Decision Making MDM Narrative Medical decision making narrative: 35-year-old female with history of electrolyte abnormalities presents emergency department for evaluation for decreased p.o. intake nausea and vomiting. Patient is currently afebrile and has no elevated leukocytosis, patient's hemoglobin 11.8. Patient does have potassium of 2.6, anion gap of 16 and a magnesium of 1.0. Patient does have a feeding tube but states she is on a to keep anything in her stomach. UA was positive for high white blood cells but negative for infection, patient denies any urinary symptoms. Patient was treated with 40 mEq of potassium through her G-tube in 20 mEq IV and patient was treated with 2 g of magnesium IV along with a L of lactated Ringer's. Patient was provided Dilaudid for pain control and Ativan for nausea control. Differential Diagnosis Differential Diagnosis: Hypokalemia, hypomagnesemia, cannabinoid hyperemesis syndrome, intractable nausea vomiting Vital Signs Vital Signs: Vital Signs Temperature 98.0 F 03/04/25 16:46 Pulse Rate 129 H 03/04/25 16:46 Respiratory Rate 16 03/04/25 16:46 Blood Pressure 131/92 H 03/04/25 16:46 Pulse Oximetry 100 03/04/25 16:46 Oxygen Delivery Room Air 03/04/25 16:46 Temperature 98.2 F 03/04/25 20:40 Pulse Rate 70 03/04/25 20:40 Respiratory Rate 16 03/04/25 20:40 Blood Pressure 124/76 03/04/25 20:40 Pulse Oximetry 100 03/04/25 20:40 Oxygen Delivery Room Air 03/04/25 21:46 Lab Data Lab results reviewed: Yes I reviewed the patient's lab results. 03/04/25 17:07 03/04/25 17:07 Labs: Lab Results 03/04/25 03/04/25 03/04/25 Range/Units 17:07 17:23 17:28 WBC 4.0 L (4.5-10.0) K/mm3 RBC 3.47 L (4.2-5.4) M/mm3 Hgb 11.8 L (12.0-15.0) g/dL Hct 34.1 L (37.0-47.0) % MCV 98.3 D (80-100) fl MCH 34.0 (26-34) pg MCHC 34.6 (32-36) g/dl RDW 17.6 H (11.5-14.5) % Plt Count 219 D (150-375) k/mm3 MPV 9.5 (7.4-10.4) fl Immature Gran % (Auto) 0.3 (0-0.5) % Neut % (Auto) 42.7 L (45.5-73.1) % Lymph % (Auto) 38.5 (18.3-44.2) % [place] % (Auto) 16.7 H (2.6-8.5) % Eos % (Auto) 0.5 (0-4.4) % Baso % (Auto) 1.3 H (0.2-1.2) % Lymph # (Auto) 1.52 (0.9-3.2) K/mm3 [place] # (Auto) 0.7 H (0.1-0.6) K/mm3 Eos # (Auto) 0.0 (0-0.3) K/mm3 Baso # (Auto) 0.1 (0.0-0.1) K/mm3 Abs Immat Gran (auto) 0.01 (0.00-0.031) K/mm3 Absolute Neuts (auto) 1.7 (1.3-6.7) K/mm3 Absolute Nucleated RBC 0.000 (0.0-0.012) K/mm3 Nucleated RBC % 0.0 (0.0-0.2) % Sodium 131 L (137-145) mmol/L Potassium 2.6 L* (3.4-5.0) mmol/L Chloride 97 L (98-107) mmol/L Carbon Dioxide 18 L (22-30) mmol/L Anion Gap 16 H (4-12) mmol/L BUN 6 L (7-17) mg/dL Creatinine 0.60 L (0.7-1.0) mg/dL Estim Creat Clear Calc Not Reportable Estimated GFR > 60 (59 - ) Glucose 117 H (65-110) mg/dL Calcium 9.1 (8.4-10.2) mg/dL Magnesium 1.0 L (1.6-2.3) mg/dL Total Bilirubin 1.2 (0.2-1.3) mg/dL AST 104 H (14-36) U/L ALT 62 H (6-35) U/L Alkaline Phosphatase 135 H (38-126) U/L Total Protein 7.4 (6.3-8.2) g/dL Albumin 4.4 (3.5-5.1) g/dL Lipase 168 (23-300) U/L Urine Color Dark yellow (Yellow) Urine Appearance Cloudy H (Clear) Urine pH 5.5 (5.0-9.0) Ur Specific [place] 1.024 (1.001-1.035) Urine Protein 1+ H (Negative) mg/dL Urine Glucose (UA) Negative (Negative) mg/dL Urine Ketones Trace H (Negative) mg/dL Ur Blood (Man) Negative (Negative) Urine Nitrate Negative (Negative) Urine Bilirubin 2+ H (Negative) Urine Urobilinogen 1.0 (<2.0) mg/dL Leukocyte Esterase Rfl Negative (Negative) BECKY/UL Urine RBC 0-2 (0-2) /hpf Urine WBC 6-10 H (0-3) /hpf Ur Squamous Epith Cells Few (Few) /hpf Urine Bacteria None seen /hpf Urine Casts 3-5 Hyaline Casts Present (None) /lpf POC Urine HCG, Qual Negative (Negative) Urine Opiates Screen Negative (Negative) Urine Methadone Screen Negative (Negative) Ur Barbiturates Screen Negative (Negative) Ur Phencyclidine Scrn Negative (Negative) Ur Amphetamine Screen Negative (Negative) U Benzodiazepines Scrn Positive A (Negative) Urine Cocaine Screen Negative (Negative) U Cannabinoids Screen Positive A (Negative) ECG Data EKG #1: EKG Interpretation: normal rate, sinus rhythm, no ectopy, no ST changes, normal QRS, NL axis and no acute changes Discharge Plan Discharge Clinical Impression: Intractable cyclical vomiting with nausea, Acute hypokalemia, Hypomagnesemia Patient Disposition: Still a Patient Condition: Serious
--- NOTE | 2025-03-04 19:22 | PC.NURSE ---
RN received report from RNs anthony and brittani. vitl signs and comfort measures updated. resumed care.
[2025-03-04 19:33] LABS: Cannabinoid Screen Urine Positive (Negative)
--- NOTE | 2025-03-04 19:47 | ECG_ITS ---
Test Date: 2025-03-04 19:56:50 Measurements Intervals [place] Rate: 77 P: 56 NE: 125 QRS: 48 QRSD: 82 T: 50 QT: 422 QTc: 480 Interpretive Statements SINUS RHYTHM LOW QRS VOLTAGE IN PRECORDIAL LEADS BORDERLINE ST-T WAVE ABNORMALITY- ANT/INF LEADS BASELINE ARTIFACT- I, II, III, AVR, AVL, AVF, V1 BORDERLINE ECG Compared to ECG 02/26/2025 14:36:14 NO SIGNIFICANT CHANGE Electronically Signed On 03-05-2025 06:19:18 CDT by Jayme Mcneal D.O.
--- NOTE | 2025-03-04 20:40 | PC.NURSE ---
This patient, Ester León, was admitted to IMU Room 212-01. Patient/family oriented to hospital policies and general routines including ID bracelet, bed and alarms, visiting hours, pain management, procedures, bathroom and other care routines, personal items, smoking policy, room service/diet, and visiting hours. Information on how to activate the Rapid Response Team has been discussed. Patient/Family are encouraged to report perceived risks to care and to ask questions if they do not understand what they are told or what they should do.
[2025-03-04] MEDS: NICOTINE (*PBKC) 7 MG PATCH 1 PATCH TRANSDERM (22:11)
[2025-03-04] MEDS: RIVAROXABAN 20 MG TABLET PO (23:00)
[2025-03-05] VITALS (10 sets, daily range): BP systolic 111–122; BP diastolic 68–79; PULSE 65–110; RESP 14–17; TEMP 36.4–37.1; O2SAT 99–100
[2025-03-05] MEDS: METOCLOPRAMIDE HCL 10 MG TABLET PO ×3 (00:27→13:02)
[2025-03-05] MEDS: HYDROmorphone HCL INJ (*CRX) 2 MG/ML VIAL 0.5 MG IV PUSH (03:56)
[2025-03-05 04:33] LABS: Hematocrit 35.3 % (37.0-47.0); Hemoglobin 11.4 g/dL (12.0-15.0); Immature Granulocyte Percent A 0.3 % (0-0.5); Lymphocytes Absolute Auto 1.77 K/mm3 (0.9-3.2); Mean Corpuscular HGB Conc 32.3 g/dl (32-36); Mean Corpuscular Hemoglobin 34.3 pg (26-34); Mean Corpuscular Volume 106.3 fl (80-100); Nucleated Red Blood Cells Absolute Auto 0.000 K/mm3 (0.0-0.012); Nucleated Red Blood Cells Perc 0.0 % (0.0-0.2); Platelet Count Result 203 k/mm3 (150-375); Red Blood Count 3.32 M/mm3 (4.2-5.4); White Blood Count 3.6 K/mm3 (4.5-10.0)
[2025-03-05 04:57] LABS: Macrocytosis 1+ (NORMAL); Schistocytes None Seen
[2025-03-05 05:00] LABS: Alanine Aminotransferase 44 U/L (6-35); Albumin Level 3.9 g/dL (3.5-5.1); Alkaline Phosphatase 128 U/L (38-126); Anion Gap 7 mmol/L (4-12); Aspartate Amino Transferase 73 U/L (14-36); Bilirubin,Total 1.5 mg/dL (0.2-1.3); Blood Urea Nitrogen 3 mg/dL (7-17); Calcium 8.6 mg/dL (8.4-10.2); Carbon Dioxide 22 mmol/L (22-30); Chloride 104 mmol/L (98-107); Estimated CRCL calculation 100 ml/min; Estimated Glomerular Filt Rate > 60; Glucose 90 mg/dL (65-110); Magnesium 2.6 mg/dL (1.6-2.3); Potassium 4.2 mmol/L (3.4-5.0); Sodium 133 mmol/L (137-145); Total Protein 6.9 g/dL (6.3-8.2)
--- NOTE | 2025-03-05 06:00 | ECG_ITS ---
Test Date: 2025-03-05 06:15:28 Measurements Intervals [place] Rate: 58 P: 47 VA: 99 QRS: -60 QRSD: 93 T: 28 QT: 476 QTc: 468 Interpretive Statements SINUS BRADYCARDIA WITH SHORT VA INTERVAL LOW QRS VOLTAGE- DIFFUSE LEADS BASELINE ARTIFACT- I, II, III, AVR, AVL, AVF, V1-V6 BORDERLINE ECG Compared to ECG 03/04/2025 19:56:50 HEART RATE HAS DECREASED Electronically Signed On 03-05-2025 06:18:44 CDT by Jayme Mcneal D.O.
[2025-03-05] MEDS: oxyCODONE HCL (*CRX) 5 MG TAB IR FEED TUBE ×2 (06:08→14:50)
[2025-03-05] MEDS: CYANOCOBALAMIN 1,000 MCG TABLET 1000 MCG FEED TUBE (09:03)
[2025-03-05] MEDS: THIAMINE HCL 100 MG TABLET FEED TUBE (09:03)
[2025-03-05] MEDS: MULTIVITAMINS THERAPEUTIC TAB (*BKC) 1 TABLET FEED TUBE (09:03)
[2025-03-05] MEDS: SIMETHICONE 80 MG TAB.CHEW FEED TUBE (09:04)
[2025-03-05] MEDS: FOLIC ACID 1 MG TABLET FEED TUBE (09:04)
[2025-03-05] MEDS: MEGESTROL ACETATE (*CHEMO) 20 MG TABLET FEED TUBE (09:04)
[2025-03-05] MEDS: MAGNESIUM OXIDE 400 MG TABLET FEED TUBE (09:04)
[2025-03-05] MEDS: FERROUS SULFATE LIQUID 325 MG/7.4 ML ELIXIR PO (09:04)
[2025-03-05] MEDS: NICOTINE (*PBKC) 7 MG PATCH 1 PATCH TRANSDERM (09:04)
[2025-03-05] MEDS: VITAMIN B COMPLEX CAPSULE 1 CAP FEED TUBE (09:04)
--- NOTE | 2025-03-05 10:56 | PM.IMHP ---
H&P: HPI History of Present Illness Date/Time: 03/05/25 10:56 Chief Complaint: Electrolyte abnormalities Narrative: Patient is a 35-year-old female with PMH cardiac arrest secondary to VFib in 10/2024, left ventricular clot, eating disorder status post PEG placement on 11/07/2023, chronic nausea, chronic LFT elevation, marijuana abuse, tobacco abuse, depression and anxiety, and alcohol use disorder. Patient lives with her fianc? and kid in a home and uses a walker for ambulation when she goes outside the house. Patient reports having neuropathy, which started a few years ago, and was previously managed by the neurologist but is currently managed by the PCP. Patient reports her last visit with Neurology a couple of years ago. Patient currently wears a Life Vest due to cardiac arrest in October 2024, which may have been due to Zofran given under the setting of QTC prolongation. Patient denies any history of stroke in the past. Patient has PEG tube placement due to weight loss. Patient reports that she had swallowing issues, but before the PEG tube placement, the swallow study was negative. Patient currently eats food by mouth and uses a PEG for Medicine and occasionally for nutrition when she is not able to eat. Patient drinks alcohol a few times a week and smokes cigarettes and occasionally marijuana. The patient was admitted in the setting of electrolyte abnormalities. A curtain cutter hand was consulted for further management of the life vest. Her last echocardiogram on 01/09/2025 shows an ejection fraction of 60-65% . Review of Systems Review of Systems: All systems reviewed & are unremarkable except as noted in HPI and below PMFSH Past Medical History Medical History Cardiac arrest with ventricular fibrillation October 2024 Adrenal insufficiency Depression with anxiety Avoidant/restrictive food intake disorder Cannabis abuse Elevated LFTs Mitral valve prolapse Surgical History Surgical History History of percutaneous endoscopic gastrostomy Family History Family History Mother Heart attack Mitral valve prolapse Grandparent Cancer Grandparent Mitral valve prolapse Social History Social History Social History: Surrogate medical decision maker: Jorge Luis Centeno significant other. Code status: Full code. Smoking packs per day: 0.5 Smoking cigarettes per day: 10.0 Years smoked: 20 Smoking pack-years: 10.00 Smoking status: Current every day smoker Tobacco type: cigarettes Alcohol intake: current Drinks per week: 4 Alcohol use details: States she drinks 1 pint a week Substance use: former Substance use type: marijuana Other substance usage details: weekly Last use: 01/22/2025 Do You Feel Safe in your Home?: Yes Lack of Transportation: No Lack of Food: Never True Current Housing: I Have Housing Concerned About Future Housing: No Difficulty Paying Gas/Electric Bills: No Difficulty Paying for Meds: No Currently Unemployed: No Education: Decline to Answer Difficulty w/ Childcare or Family Care: No Living arrangements: with family Additional living arrangements comments: with 7 year old son and fianc? Occupation/Education: unemployed Spiritual care concerns: No Agree to blood products: Yes Meds Home Medications and Allergies Home Medications ?Medication ?Instructions ?Recorded ?Confirmed ?Type ferrous sulfate 325 mg (65 mg 325 mg PO BID 03/28/24 03/04/25 History iron) tablet,delayed release folic acid 1 mg tablet 1 mg feeding tube DAILY 03/28/24 03/04/25 History megestrol 20 mg tablet 20 mg feeding tube BID 03/28/24 03/04/25 History multivitamin with folic acid 400 1 tablet PO QAM 03/28/24 03/04/25 History mcg tablet (Thera) thiamine HCl (vitamin B1) 100 mg 100 mg feeding tube DAILY 03/28/24 03/04/25 History tablet vitamin B complex (Vitamins B 1 cap feeding tube QAM 03/28/24 03/04/25 History Complex capsule) lactose-reduced food with fiber See Rx Instructions .Route .COMPLEX 08/07/24 03/04/25 History 0.06 gram-1.5 kcal/mL oral liquid (Jevity 1.5 Chriss) metoclopramide HCl 10 mg tablet 10 mg PO Q6H nausea and vomiting 08/15/24 03/04/25 Rx (Reglan) #120 tabs potassium chloride 10 mEq 10 meq feeding tube DAILY #60 caps 08/15/24 03/04/25 Rx capsule,extended release buspirone 15 mg tablet 15 mg feeding tube TID 01/08/25 03/04/25 History cyanocobalamin (vitamin B-12) 1,000 mcg feeding tube MONTHLY 01/08/25 03/04/25 History 1,000 mcg tablet nicotine 14 mg/24 hr daily 1 patch transdermal Q24H 01/08/25 03/04/25 History transdermal patch olanzapine 5 mg tablet 5 mg feeding tube QPM 01/08/25 03/04/25 History oxycodone 5 mg tablet 5 mg feeding tube Q8H PRN pain 01/08/25 03/04/25 History rivaroxaban 20 mg tablet (Xarelto) 20 mg PO DAILY@1700 #30 tabs 01/12/25 03/04/25 Rx ergocalciferol (vitamin D2) 1,250 1,250 mcg feeding tube WEEKLY 02/13/25 03/04/25 History mcg (50,000 unit) capsule famotidine 20 mg tablet 20 mg PO HS 02/13/25 03/04/25 History magnesium oxide 400 mg (241.3 mg 420 mg feeding tube DAILY 02/13/25 03/04/25 History magnesium) tablet methocarbamol 750 mg tablet 750 mg feeding tube .q4hr 02/13/25 03/04/25 History nadolol 20 mg tablet 20 mg feeding tube DAILY 02/13/25 03/04/25 History simethicone 80 mg chewable tablet 80 mg feeding tube QID PRN 02/13/25 03/04/25 History abdominal distention amoxicillin 875 mg-potassium 1 tablet PO Q12H #7 tabs 02/27/25 03/04/25 Rx clavulanate 125 mg tablet Allergies Allergy/AdvReac Type Severity Reaction Status Date / Time latex Allergy Rash Verified 03/04/25 21:22 melatonin AdvReac Mild chest Verified 03/04/25 21:22 heaviness Vital Signs Vital Signs - 24 hr 03/04/25 16:46 03/04/25 16:51 03/04/25 16:53 Temperature 98.0 F Pulse Rate 129 H 115 H Respiratory Rate 16 27 H Blood Pressure 131/92 H 152/97 H Pulse Oximetry 100 100 100 Oxygen Delivery Room Air Room Air 03/04/25 16:55 03/04/25 17:24 03/04/25 17:31 Temperature Pulse Rate 94 102 H 83 Respiratory Rate 29 H 15 21 H Blood Pressure 152/97 H 151/97 H 133/86 Pulse Oximetry 100 100 100 Oxygen Delivery 03/04/25 17:46 03/04/25 18:00 03/04/25 18:15 Temperature Pulse Rate 77 77 78 Respiratory Rate 23 H 21 H 21 H Blood Pressure 127/89 124/78 126/81 Pulse Oximetry 100 100 100 Oxygen Delivery 03/04/25 18:30 03/04/25 18:34 03/04/25 18:45 Temperature Pulse Rate 88 97 80 Respiratory Rate 15 21 H 18 Blood Pressure 127/113 H 136/95 H 124/80 Pulse Oximetry 100 100 99 Oxygen Delivery 03/04/25 18:46 03/04/25 19:00 03/04/25 20:28 Temperature Pulse Rate 80 85 83 Respiratory Rate 19 19 19 Blood Pressure 120/80 111/83 Pulse Oximetry 99 100 99 Oxygen Delivery 03/04/25 20:40 03/04/25 21:46 03/04/25 22:00 Temperature 98.2 F Pulse Rate 70 76 Respiratory Rate 16 Blood Pressure 124/76 Pulse Oximetry 100 Oxygen Delivery Room Air 03/05/25 00:00 03/05/25 00:00 03/05/25 00:00 Temperature Pulse Rate 79 83 Respiratory Rate 17 Blood Pressure 118/79 Pulse Oximetry 99 Oxygen Delivery Room Air 03/05/25 02:00 03/05/25 04:00 03/05/25 04:00 Temperature 98.4 F Pulse Rate 73 65 Respiratory Rate 17 Blood Pressure 118/75 Pulse Oximetry Oxygen Delivery Room Air 03/05/25 04:00 03/05/25 07:29 03/05/25 09:03 Temperature 97.6 F Pulse Rate 67 68 110 H Respiratory Rate 14 Blood Pressure 111/73 Pulse Oximetry 100 Oxygen Delivery Exam Narrative: APPEARANCE: Ill-appearing HEAD: normocephalic, atraumatic. EYES: PERRLA/EOMI, conjunctivae clear. NOSE: Normal no drainage EARS:TMS clear with good light reflex. THROAT: Pharynx clear, no exudate. NECK: Supple. No adenopathy, no masses. RESPIRATORY: Airway patent, respirations nonlabored. Clear to auscultation bilaterally, no rales, rhonchi, wheezing. CARDIOVASCULAR: Regular rate and rhythm without murmurs rubs or gallops. ABDOMINAL: Soft, nontender, nondistended, normal bowel sounds MUSCULOSKELETAL: Moves all extremities. Strength/ROM intact, No edema, No calf tenderness. NEURO: Alert. Cranial nerves II through XII intact. Good gait. Good coordination SKIN: Warm, dry. Normal Color H&P: Results Labs Labs: Short CBC 03/04/25 03/05/25 Range/Units 17:07 04:26 WBC 4.0 L 3.6 L (4.5-10.0) K/mm3 Hgb 11.8 L 11.4 L (12.0-15.0) g/dL Hct 34.1 L 35.3 L (37.0-47.0) % Plt Count 219 D 203 (150-375) k/mm3 BMP 03/04/25 03/05/25 17:07 04:26 Sodium 131 L 133 L Potassium 2.6 L* 4.2 Chloride 97 L 104 Carbon Dioxide 18 L 22 BUN 6 L 3 L Creatinine 0.60 L 0.50 L Glucose 117 H 90 Calcium 9.1 8.6 Liver Function 03/04/25 03/05/25 Range/Units 17:07 04:26 Total Bilirubin 1.2 1.5 H (0.2-1.3) mg/dL AST 104 H 73 H (14-36) U/L ALT 62 H 44 H (6-35) U/L Alkaline Phosphatase 135 H 128 H (38-126) U/L Albumin 4.4 3.9 (3.5-5.1) g/dL Urine 03/04/25 Range/Units 17:23 Urine Color Dark yellow (Yellow) Urine Appearance Cloudy H (Clear) Urine pH 5.5 (5.0-9.0) Ur Specific [place] 1.024 (1.001-1.035) Urine Protein 1+ H (Negative) mg/dL Urine Glucose (UA) Negative (Negative) mg/dL Assessment and Plan Assessment and plan (1) Eating disorder, unspecified: Code(s): F50.9 - Eating disorder, unspecified Status: Acute Assessment and Plan: PEG tube placement As per patient negatives swallow study No GI follow-up Consider nutrition consult as outpatient Consider psychiatric evaluation as outpatient (2) Avoidant/restrictive food intake disorder: Code(s): F50.82 - Avoidant/restrictive food intake disorder Status: Acute Assessment and Plan: As above (3) Depression with anxiety: Code(s): F41.8 - Other specified anxiety disorders Status: Acute Assessment and Plan: As above (4) Cannabis abuse: Code(s): F12.10 - Cannabis abuse, uncomplicated Status: Acute Assessment and Plan: Advised on smoking cessation (5) ETOH abuse: Code(s): F10.10 - Alcohol abuse, uncomplicated Status: Acute Assessment and Plan: Advised on alcohol cessation (6) Cardiac arrest with ventricular fibrillation: Code(s): I46.9 - Cardiac arrest, cause unspecified; I49.01 - Ventricular fibrillation Status: Resolved Assessment and Plan: -has Kestra wearable defibrillator -placed on nadolol by electrophysiology due to 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 -continue nadolol for now and as per Cardiology have discussed with the patient that she should follow-up with electrophysiology at [facility] to further discuss when she can stop the Kestra or if there is a need to transition to permanent ICD (7) Hypokalemia: Code(s): E87.6 - Hypokalemia Status: Acute Assessment and Plan: Replaced (8) Hypomagnesemia: Code(s): E83.42 - Hypomagnesemia Status: Acute Assessment and Plan: Replaced (9) Mass of left cardiac ventricle: Code(s): I51.89 - Other ill-defined heart diseases Status: Acute Assessment and Plan: -had workup performed at [facility] were cardiac MRI was unable to delineate the mass and she was apparently treated for endocarditis as well as LV thrombus -her blood cultures have cleared -continue anticoagulation follow up with [facility] CT surgery who have recommended a repeat cardiac MRI Plan DVT prophylaxis continue Xarelto Code: Full code Hospitalist MIPS Advance Care Plan I have confirmed that the patient's Advanced Care Plan is present, code status is documented, or surrogate decision maker is listed in patient medical record.: Yes Medication Reconciliation I have utilized all available resources to obtain, update and review the patients current medications (includes all prescriptions, OTC, herbals, cannabis, and nutritional supplements).: Yes
--- NOTE | 2025-03-05 12:26 | PM.CNCAR ---
Assessment and Plan Assessment and plan (1) Prolonged Q-T interval on ECG: Code(s): R94.31 - Abnormal electrocardiogram [ECG] [EKG] Status: Acute (2) Cardiac arrest with ventricular fibrillation: Code(s): I46.9 - Cardiac arrest, cause unspecified; I49.01 - Ventricular fibrillation Status: Resolved Plan 35-year-old woman with avoidance/restrictive food intake disorder s/p PEG tube in 2023, anxiety/depression who was admitted to [facility] in October 2024 after a cardiac arrest who presented with worsening nausea and abdominal pain History of Cardiac arrest (VT/VF/Torsades) -has Kestra wearable defibrillator -placed on nadolol by electrophysiology due to 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 -continue nadolol for now and I have discussed with the patient that she should follow-up with electrophysiology at [facility] to further discuss when she can stop the Kestra or if there is a need to transition to permanent ICD Left ventricular mass -had workup performed at [facility] were cardiac MRI was unable to delineate the mass and she was apparently treated for endocarditis as well as LV thrombus -her blood cultures have cleared -continue anticoagulation follow up with [facility] CT surgery who have recommended a repeat cardiac MRI -patient agreed to the plan and expressed understanding No further inpatient cardiac workup warranted at this time. I have discussed with the patient that she needs follow-up with CT surgery and EP services at [facility]. 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 Otherwise she has been in her normal state of health and regards her functional status. She occasionally will have some sharp chest discomfort that would last for less than minute and likely just a few seconds. Occasional lightheadedness however no syncopal events. Review of Systems Cardiovascular: Cardiovascular: Reports as per HPI Respiratory: Respiratory: Reports as per [facility]PI [facility] Past Medical History Medical History Cardiac arrest with ventricular fibrillation October 2024 Adrenal insufficiency Depression with anxiety Avoidant/restrictive food intake disorder Cannabis abuse Elevated LFTs Mitral valve prolapse Surgical History Surgical History History of percutaneous endoscopic gastrostomy Family History Family History Mother Heart attack Mitral valve prolapse Grandparent Cancer Grandparent Mitral valve prolapse Social History Social History Social History: Surrogate medical decision maker: Jorge Luis Centeno, significant other. Code status: Full code. Smoking packs per day: 0.5 Smoking cigarettes per day: 10.0 Years smoked: 20 Smoking pack-years: 10.00 Smoking status: Current every day smoker Tobacco type: cigarettes Alcohol intake: current Drinks per week: 4 Alcohol use details: States she drinks 1 pint a week Substance use: former Substance use type: marijuana Other substance usage details: weekly Last use: 01/22/2025 Do You Feel Safe in your Home?: Yes Lack of Transportation: No Lack of Food: Never True Current Housing: I Have Housing Concerned About Future Housing: No Difficulty Paying Gas/Electric Bills: No Difficulty Paying for Meds: No Currently Unemployed: No Education: Decline to Answer Difficulty w/ Childcare or Family Care: No Living arrangements: with family Additional living arrangements comments: with 7 year old son and fianc? Occupation/Education: unemployed Spiritual care concerns: No Agree to blood products: Yes Meds Home Medications and Allergies Home Medications ?Medication ?Instructions ?Recorded ?Confirmed ?Type ferrous sulfate 325 mg (65 mg 325 mg PO BID 03/28/24 03/04/25 History iron) tablet,delayed release folic acid 1 mg tablet 1 mg feeding tube DAILY 03/28/24 03/04/25 History megestrol 20 mg tablet 20 mg feeding tube BID 03/28/24 03/04/25 History multivitamin with folic acid 400 1 tablet PO QAM 03/28/24 03/04/25 History mcg tablet (Thera) thiamine HCl (vitamin B1) 100 mg 100 mg feeding tube DAILY 03/28/24 03/04/25 History tablet vitamin B complex (Vitamins B 1 cap feeding tube QAM 03/28/24 03/04/25 History Complex capsule) lactose-reduced food with fiber See Rx Instructions .Route .COMPLEX 08/07/24 03/04/25 History 0.06 gram-1.5 kcal/mL oral liquid (Jevity 1.5 Chriss) metoclopramide HCl 10 mg tablet 10 mg PO Q6H nausea and vomiting 08/15/24 03/04/25 Rx (Reglan) #120 tabs potassium chloride 10 mEq 10 meq feeding tube DAILY #60 caps 08/15/24 03/04/25 Rx capsule,extended release buspirone 15 mg tablet 15 mg feeding tube TID 01/08/25 03/04/25 History cyanocobalamin (vitamin B-12) 1,000 mcg feeding tube MONTHLY 01/08/25 03/04/25 History 1,000 mcg tablet nicotine 14 mg/24 hr daily 1 patch transdermal Q24H 01/08/25 03/04/25 History transdermal patch olanzapine 5 mg tablet 5 mg feeding tube QPM 01/08/25 03/04/25 History oxycodone 5 mg tablet 5 mg feeding tube Q8H PRN pain 01/08/25 03/04/25 History rivaroxaban 20 mg tablet (Xarelto) 20 mg PO DAILY@1700 #30 tabs 01/12/25 03/04/25 Rx ergocalciferol (vitamin D2) 1,250 1,250 mcg feeding tube WEEKLY 02/13/25 03/04/25 History mcg (50,000 unit) capsule famotidine 20 mg tablet 20 mg PO HS 02/13/25 03/04/25 History magnesium oxide 400 mg (241.3 mg 420 mg feeding tube DAILY 02/13/25 03/04/25 History magnesium) tablet methocarbamol 750 mg tablet 750 mg feeding tube .q4hr 02/13/25 03/04/25 History nadolol 20 mg tablet 20 mg feeding tube DAILY 02/13/25 03/04/25 History simethicone 80 mg chewable tablet 80 mg feeding tube QID PRN 02/13/25 03/04/25 History abdominal distention amoxicillin 875 mg-potassium 1 tablet PO Q12H #7 tabs 02/27/25 03/04/25 Rx clavulanate 125 mg tablet Allergies Allergy/AdvReac Type Severity Reaction Status Date / Time latex Allergy Rash Verified 03/04/25 21:22 melatonin AdvReac Mild chest Verified 03/04/25 21:22 heaviness Vital Signs Vital Signs - 24 hr 03/04/25 16:46 03/04/25 16:51 03/04/25 16:53 Temperature 36.7 C Pulse Rate 129 H 115 H Respiratory Rate 16 27 H Blood Pressure 131/92 H 152/97 H Pulse Oximetry 100 100 100 Oxygen Delivery Room Air Room Air 03/04/25 16:55 03/04/25 17:24 03/04/25 17:31 Temperature Pulse Rate 94 102 H 83 Respiratory Rate 29 H 15 21 H Blood Pressure 152/97 H 151/97 H 133/86 Pulse Oximetry 100 100 100 Oxygen Delivery 03/04/25 17:46 03/04/25 18:00 03/04/25 18:15 Temperature Pulse Rate 77 77 78 Respiratory Rate 23 H 21 H 21 H Blood Pressure 127/89 124/78 126/81 Pulse Oximetry 100 100 100 Oxygen Delivery 03/04/25 18:30 03/04/25 18:34 03/04/25 18:45 Temperature Pulse Rate 88 97 80 Respiratory Rate 15 21 H 18 Blood Pressure 127/113 H 136/95 H 124/80 Pulse Oximetry 100 100 99 Oxygen Delivery 03/04/25 18:46 03/04/25 19:00 03/04/25 20:28 Temperature Pulse Rate 80 85 83 Respiratory Rate 19 19 19 Blood Pressure 120/80 111/83 Pulse Oximetry 99 100 99 Oxygen Delivery 03/04/25 20:40 03/04/25 21:46 03/04/25 22:00 Temperature 36.8 C Pulse Rate 70 76 Respiratory Rate 16 Blood Pressure 124/76 Pulse Oximetry 100 Oxygen Delivery Room Air 03/05/25 00:00 03/05/25 00:00 03/05/25 00:00 Temperature Pulse Rate 79 83 Respiratory Rate 17 Blood Pressure 118/79 Pulse Oximetry 99 Oxygen Delivery Room Air 03/05/25 02:00 03/05/25 04:00 03/05/25 04:00 Temperature 36.9 C Pulse Rate 73 65 Respiratory Rate 17 Blood Pressure 118/75 Pulse Oximetry Oxygen Delivery Room Air 03/05/25 04:00 03/05/25 07:29 03/05/25 08:00 Temperature 36.4 C Pulse Rate 67 68 78 Respiratory Rate 14 Blood Pressure 111/73 Pulse Oximetry 100 Oxygen Delivery 03/05/25 09:03 03/05/25 10:00 03/05/25 11:48 Temperature 37.1 C Pulse Rate 110 H 82 75 Respiratory Rate 16 Blood Pressure 122/68 Pulse Oximetry 100 Oxygen Delivery Exam Const: General: comfortable HENMT: Mouth: Yes moist mucous membranes Eyes: EOM: EOMs intact bilaterally Neck: Neck: no JVD Resp: Effort & Inspection: normal respiratory effort Auscultation: clear to auscultation bilaterally Cardio: Rate: regular rate Rhythm: regular rhythm Extrem: General: no pedal edema Results Labs and Meds 03/05/25 04:26 03/05/25 04:26 Lab results: Cardiac Enzymes 03/04/25 03/05/25 Range/Units 17:07 04:26 AST 104 H 73 H (14-36) U/L CBC 03/04/25 03/05/25 Range/Units 17:07 04:26 WBC 4.0 L 3.6 L (4.5-10.0) K/mm3 RBC 3.47 L 3.32 L (4.2-5.4) M/mm3 Hgb 11.8 L 11.4 L (12.0-15.0) g/dL Hct 34.1 L 35.3 L (37.0-47.0) % Plt Count 219 D 203 (150-375) k/mm3 Lymph # (Auto) 1.52 1.77 (0.9-3.2) K/mm3 [place] # (Auto) 0.7 H 0.5 (0.1-0.6) K/mm3 Eos # (Auto) 0.0 0.1 (0-0.3) K/mm3 Baso # (Auto) 0.1 0.0 (0.0-0.1) K/mm3 Comprehensive Metabolic Panel 03/04/25 03/05/25 Range/Units 17:07 04:26 Sodium 131 L 133 L (137-145) mmol/L Potassium 2.6 L* 4.2 (3.4-5.0) mmol/L Chloride 97 L 104 (98-107) mmol/L Carbon Dioxide 18 L 22 (22-30) mmol/L BUN 6 L 3 L (7-17) mg/dL Creatinine 0.60 L 0.50 L (0.7-1.0) mg/dL Glucose 117 H 90 (65-110) mg/dL Calcium 9.1 8.6 (8.4-10.2) mg/dL AST 104 H 73 H (14-36) U/L ALT 62 H 44 H (6-35) U/L Alkaline Phosphatase 135 H 128 H (38-126) U/L Total Protein 7.4 6.9 (6.3-8.2) g/dL Albumin 4.4 3.9 (3.5-5.1) g/dL Intake and Output 03/04/25 03/05/25 03/05/25 23:59 07:59 15:59 Intake Total 1146.3 480 Balance 1146.3 480 Intake: IV 1146.3 Lactated Ringers 1,000 ml @ 999 1000 mls/hr IV CONT .Q1H1M STA Rx#: [id number] KCl 20 Meq/Sw 100 ml 100 ml @ 100 50 mls/hr IVPB ONCE STA Rx#: [id number] Magnesium Sulf 2 gm/Water 50Ml 46.3 2 gm In 50 ml @ 25 mls/hr IVPB ONCE ONE Rx#:[id number] Oral 480 Other: # Unmeasured Voids 1 Patient Weight 03/05/25 23:59 Weight 45.4 kg
--- NOTE | 2025-03-05 15:56 | P.DS_ITS ---
DS: Admitting Diagnosis Discharge Date 03/05/2025 Admitting Diagnosis Electrolyte abnormality DS: Discharge Diagnosis Discharge Diagnosis (1) Eating disorder, unspecified: Code(s): F50.9 - Eating disorder, unspecified Status: Acute Assessment and Plan: Refer to hospital course for brief hospitalization detail PEG tube placement As per patient negatives swallow study No GI follow-up Consider nutrition consult as outpatient Consider psychiatric evaluation as outpatient (2) Avoidant/restrictive food intake disorder: Code(s): F50.82 - Avoidant/restrictive food intake disorder Status: Acute Assessment and Plan: As above (3) Depression with anxiety: Code(s): F41.8 - Other specified anxiety disorders Status: Acute Assessment and Plan: As above (4) Cannabis abuse: Code(s): F12.10 - Cannabis abuse, uncomplicated Status: Acute Assessment and Plan: Advised on smoking cessation (5) ETOH abuse: Code(s): F10.10 - Alcohol abuse, uncomplicated Status: Acute Assessment and Plan: Advised on alcohol cessation (6) Cardiac arrest with ventricular fibrillation: Code(s): I46.9 - Cardiac arrest, cause unspecified; I49.01 - Ventricular fibrillation Status: Resolved Assessment and Plan: -has Kestra wearable defibrillator -placed on nadolol by electrophysiology due to 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 -continue nadolol for now and as per Cardiology have discussed with the patient that she should follow-up with electrophysiology at [facility] to further discuss when she can stop the Kestra or if there is a need to transition to permanent ICD (7) Hypokalemia: Code(s): E87.6 - Hypokalemia Status: Acute Assessment and Plan: Replaced (8) Hypomagnesemia: Code(s): E83.42 - Hypomagnesemia Status: Acute Assessment and Plan: Replaced (9) Mass of left cardiac ventricle: Code(s): I51.89 - Other ill-defined heart diseases Status: Acute Assessment and Plan: -had workup performed at [facility] were cardiac MRI was unable to delineate the mass and she was apparently treated for endocarditis as well as LV thrombus -her blood cultures have cleared -continue anticoagulation follow up with [facility] CT surgery who have recommended a repeat cardiac MRI Plan DVT prophylaxis continue Xarelto Code: Full code DS: Summary Hospital Course Hospital Course: Patient is a 35-year-old female with PMH cardiac arrest secondary to VFib in 10/2024, left ventricular clot, eating disorder status post PEG placement on 11/07/2023, chronic nausea, chronic LFT elevation, marijuana abuse, tobacco abuse, depression and anxiety, and alcohol use disorder. Patient lives with her fianc? and kid in a home and uses a walker for ambulation when she goes outside the house. Patient reports having neuropathy, which started a few years ago, and was previously managed by the neurologist but is currently managed by the PCP. Patient reports her last visit with Neurology a couple of years ago. Patient currently wears a Life Vest due to cardiac arrest in October 2024, which may have been due to Zofran given under the setting of QTC prolongation. Patient denies any history of stroke in the past. Patient has PEG tube placement due to weight loss. Patient reports that she had swallowing issues, but before the PEG tube placement, the swallow study was negative. Patient currently eats food by mouth and uses a PEG for Medicine and occasionally for nutrition when she is not able to eat. Patient drinks alcohol a few times a week and smokes cigarettes and occasionally marijuana. The patient was admitted in the setting of electrolyte abnormalities. A sustainability purchasing agent was consulted for further management of the life vest. 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 -continue nadolol for now and I have discussed with the patient that she should follow-up with electrophysiology at [facility] to further discuss when she can stop the Kestra or if there is a need to transition to permanent ICD Left ventricular mass -had workup performed at [facility] were cardiac MRI was unable to delineate the mass and she was apparently treated for endocarditis as well as LV thrombus -her blood cultures have cleared -continue anticoagulation follow up with [facility] CT surgery who have recommended a repeat cardiac MRI -patient agreed to the plan and expressed understanding On the day of discharge, the patient was seen and examined. Vital signs were s table. Physical exam were stable and labs were reviewed at length. Discharge instructions, medications, and follow-up appointments were discussed with the patient at length and all day questions were answered. ER warnings were given. Status at Discharge Cognitive/behavioral status at discharge: Stable Time Spent with Patient Time attestation: Total time spent providing and/or coordinating discharge services: Exam Narrative: APPEARANCE: Ill-appearing HEAD: normocephalic, atraumatic. EYES: PERRLA/EOMI, conjunctivae clear. NOSE: Normal no drainage EARS:TMS clear with good light reflex. THROAT: Pharynx clear, no exudate. NECK: Supple. No adenopathy, no masses. RESPIRATORY: Airway patent, respirations nonlabored. Clear to auscultation bilaterally, no rales, rhonchi, wheezing. CARDIOVASCULAR: Regular rate and rhythm without murmurs rubs or gallops. ABDOMINAL: Soft, nontender, nondistended, normal bowel sounds MUSCULOSKELETAL: Moves all extremities. Strength/ROM intact, No edema, No calf tenderness. NEURO: Alert. Cranial nerves II through XII intact. Good gait. Good coordination SKIN: Warm, dry. Normal Color DS: Data Data Completed and Pending Labs on day of discharge: Labs from last 24 hours 03/05/25 03/04/25 03/04/25 04:26 17:28 17:23 WBC 3.6 L RBC 3.32 L Hgb 11.4 L Hct 35.3 L MCV 106.3 H D MCH 34.3 H MCHC 32.3 RDW 17.8 H Plt Count 203 MPV 9.6 Immature Gran % (Auto) 0.3 Neut % (Auto) 34.0 L Lymph % (Auto) 49.7 H [place] % (Auto) 13.5 H Eos % (Auto) 1.4 Baso % (Auto) 1.1 Lymph # (Auto) 1.77 [place] # (Auto) 0.5 Eos # (Auto) 0.1 Baso # (Auto) 0.0 Abs Immat Gran (auto) 0.01 Absolute Neuts (auto) 1.2 L Absolute Nucleated RBC 0.000 Band Neutrophils % Not Reportable Nucleated RBC % 0.0 Platelet Estimate Adequate Macrocytosis 1+ Schistocytes None seen Sodium 133 L Potassium 4.2 Chloride 104 Carbon Dioxide 22 Anion Gap 7 BUN 3 L Creatinine 0.50 L Estim Creat Clear Calc 100 Estimated GFR > 60 Glucose 90 Calcium 8.6 Phosphorus 2.5 Magnesium 2.6 H Total Bilirubin 1.5 H AST 73 H ALT 44 H Alkaline Phosphatase 128 H Total Protein 6.9 Albumin 3.9 Lipase Urine Color Dark yellow Urine Appearance Cloudy H Urine pH 5.5 Ur Specific Gideon 1.024 Urine Protein 1+ H Urine Glucose (UA) Negative Urine Ketones Trace H Ur Blood (Man) Negative Urine Nitrate Negative Urine Bilirubin 2+ H Urine Urobilinogen 1.0 Leukocyte Esterase Rfl Negative Urine RBC 0-2 Urine WBC 6-10 H Ur Squamous Epith Cells Few Urine Bacteria None seen Urine Casts 3-5 Hyaline Casts Present POC Urine HCG, Qual Negative Urine Opiates Screen Negative Urine Methadone Screen Negative Ur Barbiturates Screen Negative Ur Phencyclidine Scrn Negative Ur Amphetamine Screen Negative U Benzodiazepines Scrn Positive A Urine Cocaine Screen Negative U Cannabinoids Screen Positive A 03/04/25 17:07 WBC 4.0 L RBC 3.47 L Hgb 11.8 L Hct 34.1 L MCV 98.3 D MCH 34.0 MCHC 34.6 RDW 17.6 H Plt Count 219 D MPV 9.5 Immature Gran % (Auto) 0.3 Neut % (Auto) 42.7 L Lymph % (Auto) 38.5 [place] % (Auto) 16.7 H Eos % (Auto) 0.5 Baso % (Auto) 1.3 H Lymph # (Auto) 1.52 [place] # (Auto) 0.7 H Eos # (Auto) 0.0 Baso # (Auto) 0.1 Abs Immat Gran (auto) 0.01 Absolute Neuts (auto) 1.7 Absolute Nucleated RBC 0.000 Band Neutrophils % Nucleated RBC % 0.0 Platelet Estimate Macrocytosis Schistocytes Sodium 131 L Potassium 2.6 L* Chloride 97 L Carbon Dioxide 18 L Anion Gap 16 H BUN 6 L Creatinine 0.60 L Estim Creat Clear Calc Not Reportable Estimated GFR > 60 Glucose 117 H Calcium 9.1 Phosphorus Magnesium 1.0 L Total Bilirubin 1.2 AST 104 H ALT 62 H Alkaline Phosphatase 135 H Total Protein 7.4 Albumin 4.4 Lipase 168 Urine Color Urine Appearance Urine pH Ur Specific Gideon Urine Protein Urine Glucose (UA) Urine Ketones Ur Blood (Man) Urine Nitrate Urine Bilirubin Urine Urobilinogen Leukocyte Esterase Rfl Urine RBC Urine WBC Ur Squamous Epith Cells Urine Bacteria Urine Casts Hyaline Casts POC Urine HCG, Qual Urine Opiates Screen Urine Methadone Screen Ur Barbiturates Screen Ur Phencyclidine Scrn Ur Amphetamine Screen U Benzodiazepines Scrn Urine Cocaine Screen U Cannabinoids Screen Discharge Plan Discharge Attending physician on discharge: Rohan Hoff Consulting providers: [place] Discharging Clinician: Rohan Hoff Anticipated Discharge Date/Time: 03/05/25 15:58 Patient Disposition: Home Activity: as tolerated Diet: heart healthy Discharge Instructions: Check blood pressure 1 to 2 times a day. Record and bring into your doctor for review. Call your doctor if your blood pressure is greater than 180/110 or less than 90/45. Walk with cane or other assist device. Take precautions to avoid falls. Rise slowly from a lying or sitting position. Pause before standing or walking. Contact your doctor or call 911 and come to the Emergency Room if you have any type of trauma, lightheadedness with standing or other worrisome symptoms. Avoid NSAIDs (ibuprofen, naproxen, Aleve). Tylenol is safe to take. Follow-up with your primary care provider in 1-2 weeks. Please call for appointment. Follow-up with Cardiology in 2-4 weeks. Please call for an appointment. Thank you for using [facility] for your health care needs. Patient Instructions: Antibiotic Form Patient Language: Azeri Stand Alone Forms: General Discharge Information Follow-up/Referrals: Mo Mitchell MD [Primary Care Provider] - [place] MD [Physician] - Discharge Medications: Continued olanzapine 5 mg tablet 5 mg feeding tube QPM buspirone 15 mg tablet 15 mg feeding tube TID cyanocobalamin (vitamin B-12) 1,000 mcg tablet 1,000 mcg feeding tube MONTHLY oxycodone 5 mg tablet 5 mg feeding tube Q8H PRN (Reason: pain) nicotine 14 mg/24 hr patch 24 hour 1 patch transdermal Q24H Xarelto 20 mg Tablet 20 mg PO DAILY@1700 Qty: 30 0RF ergocalciferol (vitamin D2) 1,250 mcg (50,000 unit) capsule 1,250 mcg feeding tube WEEKLY famotidine 20 mg tablet 20 mg PO HS methocarbamol 750 mg tablet 750 mg feeding tube .q4hr nadolol 20 mg tablet 20 mg feeding tube DAILY simethicone 80 mg tablet,chewable 80 mg feeding tube QID PRN (Reason: abdominal distention) Patient Comments: after meals and at bedtime magnesium oxide 400 mg (241.3 mg magnesium) tablet 420 mg feeding tube DAILY thiamine HCl (vitamin B1) 100 mg tablet 100 mg feeding tube DAILY folic acid 1 mg tablet 1 mg feeding tube DAILY ferrous sulfate 325 mg (65 mg iron) tablet,delayed release (DR/EC) 325 mg PO BID Rx Instructions: patient administers via feeding tube megestrol 20 mg tablet 20 mg feeding tube BID vitamin B complex [Vitamins B Complex] Capsule 1 cap feeding tube QAM multivitamin with folic acid [Thera] 400 mcg tablet 1 tablet PO QAM Rx Instructions: pt administers via feeding tube Jevity 1.5 Chriss 0.06 gram-1.5 kcal/mL liquid See Rx Instructions .ROUTE .COMPLEX Rx Instructions: 75ml one to two times a day. potassium chloride 10 mEq capsule, extended release 10 meq feeding tube DAILY Qty: 60 0RF metoclopramide HCl [Reglan] 10 mg tablet 10 mg PO Q6H Qty: 120 0RF Discontinued amoxicillin-pot clavulanate 875-125 mg tablet 1 tablet PO Q12H Qty: 7 0RF Date of admission: 03/04/25 19:55 Primary Care Provider: Mo Mitchell Admitting Provider: Cayden Maldonado Attending physician on admission: Cayden Maldonado Condition: Stable
== END 2025-03-05 16:39 | disposition home or self-care (01) ==
LOC: ANHED 17:36 → ANHIMU 21:52
PROVIDERS: Nurse Practitioner; Admitting Provider Internal Medicine; Emergency Provider Emergency Medicine; PCP Internal Medicine; Visit Provider General Practice
DX: F50.9 Eating disorder, unspecified (principal); R11.15 Cyclical vomiting syndrome unrelated to migraine; E87.6 Hypokalemia; E83.42 Hypomagnesemia; F50.82 Avoidant/restrictive food intake disorder; I51.89 Other ill-defined heart diseases; I49.01 Ventricular fibrillation; F12.10 Cannabis abuse, uncomplicated; F10.10 Alcohol abuse, uncomplicated; F41.8 Other specified anxiety disorders; G62.9 Polyneuropathy, unspecified; F17.210 Nicotine dependence, cigarettes, uncomplicated; Z86.74 Personal history of sudden cardiac arrest; Z95.811 Presence of heart assist device; Z93.1 Gastrostomy status; Z79.899 Other long term (current) drug therapy; Z68.1 Body mass index [BMI] 19.9 or less, adult
CPT/HCPCS: 36415; 80053; 80069; 80307; 81001; 81025; 83690; 83735; 85025; 87086; 93005; 96365; 96366; 96367; 96375; 99285; A9270; G0378; G0379; J1171; J2060; J3475; J3480; J7050; J7120

== ENCOUNTER 2025-03-11 14:43 | Outpatient (CLI) | payer OTHER, SELFPAY ==
[2025-03-11 15:13] LABS: Hematocrit 34.1 % (37.0-47.0); Hemoglobin 11.3 g/dL (12.0-15.0); Immature Granulocyte Percent A 0.3 % (0-0.5); Lymphocytes Absolute Auto 2.45 K/mm3 (0.9-3.2); Mean Corpuscular HGB Conc 33.1 g/dl (32-36); Mean Corpuscular Hemoglobin 35.3 pg (26-34); Mean Corpuscular Volume 106.6 fl (80-100); Nucleated Red Blood Cells Absolute Auto 0.000 K/mm3 (0.0-0.012); Nucleated Red Blood Cells Perc 0.0 % (0.0-0.2); Platelet Count Result 174 k/mm3 (150-375); Red Blood Count 3.20 M/mm3 (4.2-5.4); White Blood Count 6.3 K/mm3 (4.5-10.0)
--- OUTSIDE RECORDS SUMMARY | 2025-03-11 15:45 | XMS_ITS | Encounter Summary ---
Author Organization [facility] Facility Care Team Providers Care Live Games Dealer Name Role Phone Christian Merritt MD Primary Care Provider [phone] Mo Mitchell MD Primary Care Provider [phone] Neeta Ott RN Unavailable [phone] Encounter Details Date Type Department Care Team (Latest Contact Info) Description 01/05/2017 Orders Only [facility] CLINCONV Provider, MD Serge [address] [place] [id number] Social History Tobacco Use Types Packs/Day Years Used Date Smoking Tobacco: Never Assessed Comments Unknown Sex and Gender Information Value Date Recorded Sex Assigned at Not on file 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
--- OUTSIDE RECORDS SUMMARY | 2025-03-11 15:45 | XMS_ITS | Clinical Summary ---
Author Organization [facility] dipika [facility] Address [address] [place] [address] [place] [address] Care Team Providers Care Web Content & Social Media Manager Name Role Phone Unavailable Primary Care Provider [...]
--- OUTSIDE RECORDS SUMMARY | 2025-03-11 15:45 | XMS_ITS | Patient Health Record ---
Author Organization [facility] Address [address] [place] [address] Care Team Providers Care Transit Planning Manager Name Role Phone Mo Mitchell Primary Care Provider Marilu Mora Unavailable [phone] Ileana Duncan Unavailable [phone] Allergies Allergen (clinical drug ingredient) Drug/Non Drug [...] Unsteady gait (R26.8 1) Referral Organization [facility] Referring Provider First Name Mo Referring Provider Last Name Paula Referring Provider Speciality Internal M edicine Referred Provider Specialty Physical The rapist General Notes BRITTANIE Patton, Tory Manzano 05/11/2024 09:02:12 AM > Referral to [facility] PT. letter to pt., Giovanna Hoyos 01/17/2025 02:50:03 PM >Talked with client who reported that this referral was not completed b/c client had gotten better & it was no longer needed. Closing referral. Clinical Notes [facility] [address] [facility] [address] , Referral Priority Routine Medications Medication SIG (Take, Route, Frequency, Duration) Notes Start Date End Date Status Ergocalciferol 1.25 MG (09660 UT) 1 capsule Orally Active Famotidine 20 MG 1 tablet at bedtime as needed Orally Once a day Active Nadolol 20 MG 1 tablet Orally Once a day; Duration: 30 days Active Potassium Chloride ER 10 MEQ 1 tablet with food Orally daily; Duration: 30 days 03/07/2025 Active B-Complex-C - as directed Orally Active busPIRone HCl 15 MG 1 tablet Orally Twic e a day Active Multivitamin - 1 tablet Orally Once a day Active Simethicone 80 MG 1 tablet after meals and at bedtime as needed Orally Four times a day Active Ferrous Sulfate 325 (65 Fe) MG 1 tablet Orally twice a day; Duration: 30 day(s) Active Netupitant-Palonosetron 300-0.5 MG 1 capsule Orally daiy; Duration: 14 days As needed nausea 03/07/2025 Active Xarelto 20 MG 1 tablet with food Orally Once a day Active Folic Acid 1 MG 1 tablet Orally Once a day; Duration: 30 days Active Methocarbamol 750 MG 1 tablet Orally klaus ry 4 hrs Active Acetaminophen 500 MG two tablets as need ed for pain (maximum of 6 tablets in 24 hours) Orally every 6 hrs 10/01/2024 Active Naloxone HCl 4 MG/10ML as directed Injection Active Megestrol Acetate 20 MG 1 tablet Orally Twice a day; Duration: 30 days Active Loperamide HCl 1 MG/7.5ML 15 mL as neede d Orally Four times a day Active Nicotine 14 MG/24HR 1 patch to skin Transdermal Once a day Not-Mine g Magnesium Oxide 420 MG 1 tablet with crystal d Orally Once a day Active Cyanocobalamin 1000 MCG 1 capsule Orally daily; Duration: 90 days Active Social History Tobacco Use: Social History Observation Description Date Details (start date - stop date) Current Smoker 03/10/2007 - NA Sex Assigned At : Social History Observation Description Sex Assigned At Female PRAPARE Question Answer Notes Date Completed/Updated: 03/07/2025 What is your current housing situation? I have h ousing Are you worried about losing your housing? No What is the highest level of school that you have finished? High school diploma or GED What is your current work situation? Oth erwise unemployed but not seeking work (ex. 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 Check all that apply I do not have problems meeting my needs Has lack of transportation k ept you from medical appointments, meetings, work or from getting things needed for daily living? No How often do you see or talk to people that you care about and feel close to? (For example: talking to friends on the phone, visiting friends or family, going to quaker or club meetings) 3 to 5 times a week How stressed are you? Stress is when someone feels tense, nervous, anxious, or can\t sleep at night because their mind is troubled Somewhat In the past year have you sp ent more than 2 nights in a row in a prison, half-way, long-term center, or juvenile correctional facility? No Are you a refugee? I choose not to answer this q uestion What country are you from? [place] Do you feel physically and e motionally safe where you currently live? Yes In the past year, have you b een afraid of your partner or ex-partner? Unsure PRAPARE Score: 4 Tobacco Control (Standard) Question Answer Notes Additional Findings: Tobacco non-user Ne ivory chewed tobacco,Does not use moist powdered tobacco,Never used moist powdered tobacco When did you start smoking? 03/10/2007 How often do you smoke cigarettes? Every day How many cigarettes a day do you smoke? 6-10 How soon after you wake up d o you smoke your first cigarette? Within 5 minutes Are you interested in quitting? Not ready to mahin t Tobacco use: Current smoker Additional Findings: Tobacco user Light cigarett e smoker (1-9 cigs/day) Problems Problem Type SNOMED Code ICD Code Onset Dates Problem Status W/U Status Risk Notes Problem Hypomagnesemia (230867222) Hypomagnesemia (E83.42) Active confirmed Problem Tobacco user (385206752) Nicotine dependence, unspecified, uncomplicated (F17.200) Active confirmed Problem Eating disorder (24785081) Eating disorder, unspecified (F50.9) Active confirmed Problem Prolonged QT interval (927245320) Prolonged QT interval (I45.81) Active confirmed Problem Peripheral neuropathy (268807916) Peripheral neuropathy (G62.9) Active confirmed Problem Chronic pain (94961309) Chronic pain (G89.29) Active confirmed Problem Unsteady gait (71668405) Unsteady gait (R26.81) Active confirmed Problem Deficiency of macronutrients (disorder) (398060977) Protein-calorie malnutrition, unspecified severity (E46) Active confirmed Problem Alcohol related disorder (F10.99) Active confirmed Vital Signs Heart Rate 99 /min 03/07/2025 Temperature 97.2 degrees Fahrenheit 03/20/2024 Respiratory Rate 16 /min 03/07/2025 Blood pressure diastolic 80 mm Hg 03/07/2025 Oximetry 98 % 03/07/2025 Height 61 in 03/07/2025 Blood pressure systolic 110 mm Hg 03/07/2025 Weight 106.4 lbs 03/07/2025 BMI 20.1 kg/m2 03/07/2025 Encounters Encounter Location Date Provider Diagnosis [address] [place] [address] 03/20/2024 Mo Mitchell Peripheral neuropath y G62.9 ; Eating disorder, unspecified F50.9 ; Unsteady gait R26.81 ; Protein-calorie malnutrition, unspecified severity E46 and Periodontal disease K05.[address] [address] 03/20/2024 Marilu Mora [address] [address] 10/01/2024 Mo Mitchell Protein-calorie malnutrition, unspecified severity E46 ; Peripheral neuropathy G62.9 ; Eating disorder, unspecified F50.9 and Nicotine dependence, unspecified, uncomplicated F17.[address] [address] 12/05/2024 Mo Mitchell Torsades de pointes I47.21 ; Prolonged QT interval I45.81 ; Chronic pain G89.29 ; Alcohol related disorder F10.99 ; Peripheral neuropathy G62.9 ; Protein-calorie malnutrition, unspecified severity E46 ; Unsteady gait R26.81 and Opioid use F11.[address] [place] [address] 03/07/2025 Mo Mitchell Hypokalemia E87.6 ; Hypomagnesemia E83.42 ; Prolonged QT interval I45.81 ; Protein-calorie malnutrition, unspecified severity E46 ; Peripheral neuropathy G62.9 ; Alcohol related disorder F10.99 ; Nausea R11.0 and Diarrhea R19.[address] [place] [address] 03/07/2025 [facility] [address] [place] [address] 11/23/2024 Mo [facility] [address] [facility] [place] [address] 12/03/2024 Mo [facility] [address] [facility] [place] [address] 12/03/2024 Mo Mitchell [address] [place] [address] 12/05/2024 Mo Mitchell [address] [place] [address] 12/19/2024 Mo [facility] [address] [place] [address] 12/28/2024 Mo [facility] [address] [place] [address] 01/02/2025 Mo Mitchell Hypokalemia E87.6 ; Alcohol related disorder F10.99 and Fatigue R53.83 [facility] [address] [place] [address] 01/08/2025 Mo Mitchell [facility] [address] [place] [address] 01/10/2025 Mo [facility] [address] [place] [address] 01/16/2025 Mo Mitchell [facility] [address] [place] [address] 01/18/2025 Mo Mitchell [facility] [address] [place] [address] 02/01/2025 Mo Mitchell [facility] [address] [place] [address] 02/13/2025 Mo Mitchell [facility] [address] [place] [address] 02/22/2025 Mo Mitchell [address] [place] [address] 03/10/2025 Mo Mitchell [address] [place] [address] 03/19/[address] [place] [address] 04/20/2024 Mo Mitchell [address] [place] [address] 06/13/[address] [place] [address] 06/14/2024 Mo Mitchell Eating disorder, unspecified F50.[address] [place] [address] 06/18/2024 Mo Mitchell [address] [place] [address] 06/27/2024 Mo Mitchell [address] [place] [address] 07/27/2024 Mo Mitchell [address] [place] [address] 07/30/[address] [place] [address] 09/25/2024 Mo Mitchell [address] [place] [address] 10/15/2024 Mo Mitchell Eating disorder, unspecified F50.9 and Peripheral neuropathy G62.[address] [place] [address] 01/23/2025 Mo Mitchell [address] [place] [address] 02/28/2025 Mo Mitchell Chronic pain G89.29 Assessments Encounter Date Diagnosis (ICD Code) Assessment Notes Treatment Notes Treatment Clinical Notes Section Notes 10/01/2024 Protein-calorie malnutrition, unspecified severity (ICD-10 - E46) 12/05/2024 Torsades de pointes (ICD-10 - I47.21) WILL NEED TO AVOID QT-PROLONGING DRUGS. F/U WITH CARDIOLOGY FOR MONITOR. 01/02/2025 Hypokalemia (ICD-10 - E87.6) 10/01/2024 Peripheral neuropathy (ICD-10 - G62.9) 12/05/2024 Prolonged QT interval (ICD-10 - I45.81) F/U WITH CARDIOLOGY. 01/02/2025 Alcohol related disorder (ICD-10 - F10.99) 02/28/2025 Chronic pain (ICD-10 - G89.29) 03/07/2025 Hypomagnesemia (ICD-10 - E83.42) 03/07/2025 Hypokalemia (ICD-10 - E87.6) 06/14/2024 Eating disorder, unspecified (ICD-10 - F50.9) 03/20/2024 Eating disorder, unspecified (ICD-10 - F50.9) 03/20/2024 Peripheral neuropathy (ICD-10 - G62.9) 10/15/2024 Eating disorder, unspecified (ICD-10 - F50.9) 10/15/2024 Peripheral neuropathy (ICD-10 - G62.9) 03/20/2024 Unsteady gait (ICD-10 - R26.81) 10/01/2024 Eating disorder, unspecified (ICD-10 - F50.9) 03/07/2025 Prolonged QT interval (ICD-10 - I45.81) Avoid QT prolonging drugs 12/05/2024 Chronic pain (ICD-10 - G89.29) OPTIONS ARE LIMITED TO OPIOIDS AT THIS TIME. SHE DOES NOT WANT TO TRY NEW NON-OPIOID PAIN MED YET. 01/02/2025 Fatigue (ICD-10 - R53.83) 03/07/2025 Protein-calorie malnutrition, unspecified severity (ICD-10 - E46) Clinically improving 10/01/2024 Nicotine dependence, unspecified, uncomplicated (ICD-10 - F17.200) 03/20/2024 Protein-calorie malnutrition, unspecified severity (ICD-10 - E46) 12/05/2024 Alcohol related disorder (ICD-10 - F10.99) UNDERSTANDS THAT SHE MUST ABSTAIN FROM DRINKING. 03/20/2024 Periodontal disease (ICD-10 - K05.6) SEE DENTIST MADIHA 03/07/2025 Peripheral neuropathy (ICD-10 - G62.9) 12/05/2024 Peripheral neuropathy (ICD-10 - G62.9) PT/OTKRISTIAN 12/05/2024 Protein-calorie malnutrition, unspecified severity (ICD-10 - E46) CONTINUE TF 1.5 ADAMS/ML LOW LACTOSE SOLUTION 03/07/2025 Alcohol related disorder (ICD-10 - F10.99) labs from hospital suggest ongoing use 03/07/2025 Nausea (ICD-10 - R11.0) 12/05/2024 Unsteady gait (ICD-10 - R26.81) KRISTIAN, PT/OT 12/05/2024 Opioid use (ICD-10 - F11.90) 03/07/2025 Diarrhea (ICD-10 - R19.7) Etiology unclear 03/07/2025 Other Blindmaker met with Ester León to assist in working on building skills to help the consumer gain confidence in their recovery journey. The contract technical writer practiced with Ester León implementing problem solving skills to help facilitate exploration of options and understanding of life triggers that impact substance use (explain options and life triggers). The contract technical writer encouraged and engaged in critical thinking of how to use natural supports and coping skills to help manage symptoms in the moment. Blindmaker also worked on modeling and practicing with the consumer these coping skills to reduce stress and anxiety surrounding current/past substance use along with the benefits of working a 12 step program, getting a sponsor, and building a solid support system and improving coping skills. Plan Of Treatment Future Test Test Name Order Date Carbohydrate Deficient Transf. 5 Magnesium, Serum* 03/07/2025 CBC With Differential/Platelet* 03/07/20 25 CMP 14 Comprehensive Metabolic Panel* Insurance Providers Payer Name Payer Address Payer Phone Subscriber Number Group Number Insured Name Patient Relationship to Insured Coverage Start Date Coverage End Date [employer] [address] [place] [phone] [id number] Ester León Self - patient is the insured 4 Medical (General) History Surgical History Surgery Date(Month/Year) peg tube 10/2023 child 2016 Hospitalization History Reason Date(Month/Year) [facility] 1 night and 4 nights 02/2025 [facility] Cardiac arrest 10/2024 [facility]. infection 07/2024 [facility] 02/04/17
--- OUTSIDE RECORDS SUMMARY | 2025-03-11 15:45 | XMS_ITS | Encounter Summary ---
Author Organization [facility] Facility Care Team Providers Care Casino Surveillance Officer Name Role Phone Christian Merritt MD Primary Care Provider [phone] Mo Mitchell MD Primary Care Provider [phone] Neeta Ott RN Unavailable [phone] Encounter Details Date Type Department Care Team (Latest Contact Info) Description 12/09/2016 Orders Only [facility] CLINCONV Provider, MD Serge [address] [place] [address] Social History Tobacco Use Types Packs/Day Years Used Date Smoking Tobacco: Never Assessed Comments Unknown Sex and Gender Information Value Date Recorded Sex Assigned at Not on file 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
--- OUTSIDE RECORDS SUMMARY | 2025-03-11 15:45 | XMS_ITS | Encounter Summary ---
Author Organization [facility] Facility Care Team Providers Care Sugar Presser Name Role Phone Christian Merritt MD Primary Care Provider [phone] Mo Mitchell MD Primary Care Provider [phone] Neeta Ott RN Unavailable [phone] Encounter Details Date Type Department Care Team (Latest Contact Info) Description 12/06/2016 Orders Only [facility] CLINCONV Provider, MD Serge [address] [place] [address] Social History Tobacco Use Types Packs/Day Years Used Date Smoking Tobacco: Never Assessed Comments Unknown Sex and Gender Information Value Date Recorded Sex Assigned at Not on file 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
--- OUTSIDE RECORDS SUMMARY | 2025-03-11 15:45 | XMS_ITS | Clinical Summary ---
Author Organization [facility] Address [address] [place] [address] Care Team Providers Care Launching Pad Mechanic Name Role Phone Mo Mitchell MD Primary Care Provider [phone] Allergies Active Allergy Reactions Criticality Noted Date [...] for diarrhea 100 mL 5 Active multivit hxncwsly-fban-E A-calcium (THERA-M) 9 mg iron-400 mcg tabletIndicatio [...] daily until blood thinner is received from apparel manager office Indications: treatment to prevent a heart [...] Care Team Description 02/22/2025 Home Care Visit [address] [place] [address] Nayely Pedroza, RN SN VIRTUAL NON OASIS DISCHARGE 02/20/2025 Home Care Visit [address] [place] [address] Nayely Pedroza, RN TELEPHONE ENCOUNTER 02/19/2025 Home Care Visit [address] [place] [address] Nayely Pedroza, RN TELEPHONE ENCOUNTER 02/15/2025 Orders Only [facility] [place] [facility] Cardiothoracic Surgery [address] [facility] 8th Floor [address] Room [id number] [place] [phone] Bo Fried MD Mass of left cardiac ventricle (Primary Dx) 02/15/2025 Telephone [facility] Home Care Services [address] [place] [address] Unknown, Notinfile 02/14/2025 Telephone [facility] Home Care Services [address] [facility] [address] [place] [address] Salas, Summer 02/13/2025 Orders Only [facility] [place] [facility] Cardiothoracic Surgery [address] [facility] 8th Floor [address] Room [address] [phone] Bo Fried MD Mass of left cardiac ventricle (Primary Dx) 02/12/2025 2:30 PM CDT Home Care Visit [place] [address] [place] [address] Nayely Pedroza, BRITTANIE SN HOME VISIT 02/07/2025 10:00 AM CDT Home Care Visit [address] [place] [address] Isabelle Campbell, OT OT INITIAL EVALUATION 02/07/2025 9:00 AM CDT Home Care Visit [address] [place] [address] Pia Swan, RN SN HOME VISIT 02/07/2025 Telephone [facility] [place] [facility] Infectious Diseases [address] [facility] [address] [place] [phone] Rosangela Simental, ROSA MARIA 02/06/2025 2:00 PM CDT Home Care Visit [address] [place] [address] Thang Solorzano, PT PT INITIAL EVALUATION 02/05/2025 Home Care Visit [address] [place] [address] [place] [address] Pia Moon, BRITTANIE TELEPHONE ENCOUNTER 02/01/2025 Telephone [facility] [place] [facility] Cardiology [address] [facility] 8th Floor [address] [place] [phone] Nani Melchor, STAN Scheduling Appointments 01/31/2025 2:00 PM CDT Home Care Visit [address] [place] [address] Nayely Pedroza, BRITTANIE SN OASIS RECERTIFICATION 01/31/2025 Plan of Care Documentation [address] [place] [address] 01/29/2025 Home Care Visit [address] [place] [address] Nayely Pedroza, BRITTANIE TELEPHONE ENCOUNTER 01/28/2025 Home Care Visit [address] [place] [address] Nayely Pedroza, BRITTANIE TELEPHONE ENCOUNTER 01/24/2025 9:40 AM CDT Office Visit [facility] [place] [facility] Infectious Diseases [address] [facility] [address] [place] [phone] Dorothea Stephen, BRAXTON MSSA bacteremia (Primary Dx) 01/22/2025 12:40 PM CDT - 01/22/2025 11:59 PM CDT Hospital Encounter [facility] [address] [place] [address] Discharge Disposition: Discharge to home or self care 01/22/2025 12:00 PM CDT Home Care Visit [address] [place] [address] Nayely Pedroza, BRITTANIE SN HOME VISIT 01/18/2025 10:30 AM CDT Home Care Visit [address] [place] [address] Billy Zarco, BRITTANIE SN OASIS RESUMPTION OF CARE 01/18/2025 Plan of Care Documentation [address] [place] [address] 01/17/2025 Orders Only [facility] Medical Group Cardiology [address] [place] [phone] Oz Noble MD 01/17/2025 Home Care Visit [address] [place] [address] Pia Moon, RN SN OASIS TRANSFER W/OUT DC 01/16/2025 Home Care Visit [address] [place] [address] Pia Moon, RN TELEPHONE ENCOUNTER 01/15/2025 10:00 AM CDT Office Visit [facility] [place] [facility] Cardiothoracic Surgery [address] [facility] 8th Floor [address] Room [address] [place] [phone] Bo Fried MD Mass of left cardiac ventricle 01/15/2025 8:15 AM CDT - 01/15/2025 11:59 PM CDT Hospital Encounter [facility] Diagnostic [facility] [address] [facility] 8th [place] [phone] Bo Fried MD MSSA bacteremia; Thrombocytopenia Discharge Disposition: Discharge to home or self care 01/14/2025 Telephone [facility] Home Care Services [address] [facility] [address] [place] [address] Ondina Salas [facility] 01/11/2025 Telephone [facility] Home Care Services [address] [facility] [address] [place] [address] Vidhi Martin 01/09/2025 Telephone [facility] [place] [facility] Infectious Diseases [address] [facility] [address] [place] [phone] Sidney Gould Jr., RN 01/08/2025 Telephone [facility] Home Care Services [address] [place] [address] [address] [place] [address] Vidhi Martin 01/01/2025 2:10 PM CDT - 01/01/2025 11:59 PM CDT Hospital Encounter [facility] [address] [place] [address] Discharge Disposition: Discharge to home or self care 01/01/2025 2:00 PM CDT Home Care Visit [address] [place] [address] Nayely Pedroza, BRITTANIE SN HOME VISIT 01/01/2025 Telephone [facility] [place] [facility] Infectious Diseases [address] [facility] [address] [place] [address] Sidney Gould Jr., RN 12/31/2024 Telephone [facility] [place] [facility] Cardiology [address] [place] [address] 8th [place] [address] [place] [phone] Nani Melchor NP 12/31/2024 Orders Only [facility] [place] [facility] Infectious Diseases [address] [phone] Dorothea Stephen, BRAXTON 12/28/2024 11:00 AM CDT Home Care Visit [address] [place] [address] Nayely Pedroza RN SN HOME VISIT 12/27/2024 2:00 PM CDT Home Care Visit [address] [place] [address] Thang Solorzano, PT PT DISCIPLINE DISCHARGE 12/27/2024 9:13 AM CDT - 12/27/2024 11:59 PM CDT Hospital Encounter [facility] [address] [place] [address] Discharge Disposition: Discharge to home or self care 12/27/2024 8:40 AM CDT Office Visit [facility] [place] [facility] Infectious Diseases [address] [address] Dorothea Stephen, BRAXTON MSSA bacteremia (Primary Dx); Encounter for screening examination for sexually transmitted disease 12/27/2024 Telephone [facility] [place] [facility] Infectious Diseases [address] [facility] [address] [place] [phone] Dorothea Stephen, BRAXTNO 12/25/2024 Telephone [facility] Medicine Clinic [address] [facility] [address] [place] [address] Veronika Ocampo MD 12/21/2024 2:00 PM CDT Home Care Visit [address] [place] [address] Thang Solorzano, PT PT HOME VISIT 12/21/2024 11:30 AM CDT Home Care Visit [address] [place] [address] Nayely Pedroza, RN SN HOME VISIT 12/21/2024 Orders Only [facility] [place] [facility] Cardiology [address] [facility] 8th [place] [address] [place] [phone] Nani Melchor, BRAXTON 12/19/2024 11:00 AM CDT Home Care Visit [address] [place] [address] Thang Solorzano, PT PT HOME VISIT 12/19/2024 Home Care Visit [address] [place] [address] Thang Solorzano, PT CASE COMMUNICATION 12/13/2024 10:45 AM CDT Home Care Visit [address] [place] [address] Khushboo Jarvis, PT PT HOME VISIT 12/11/2024 2:30 PM CDT Home Care Visit [address] [place] [address] Khushboo Jarvis, PT PT HOME VISIT 12/11/2024 1:00 PM CDT Home Care Visit [address] [place] [address] Nayely Pedroza, RN SN HOME VISIT from Last 3 Months Immunizations Immunization Administration [...] In the past 12 months has e ASSET[employer], gas, oil, or water tripJane threatened to shut off services in your [...] often do you attend chur ch or orthodox services? Never 11/29/2024 Do you belong to any clubs o r organizations such as cheondoism groups, unions, fraternal or athletic groups, or [...] any time in the past 12 m [facility], were you homeless or living in a custodial (including now)? No 11/29/2024 Personal Safety Answer Date Recorded Have you ever been in or are you currently in a harmful physical or emotional relationship or is someone making you feel afraid or unsafe? Denies 10/31/2024 Comments No Sex and Gender Information Value Date Recorded Sex Assigned at Not on file Legal Sex Female 8:06 PM REPAIR MANAGER Gender Identity Not on file Sexual [...] Date/Time Associated Diagnosis Comments BLOOD MISC TO TEABERRY Routine 01/22/2025 12 :40 PM CDT EGFR [...] E6/E7, CHLAMYDIA/N.GONORRHOEA E Routine 09/14/2016 12:56 PM REPAIR MANAGER from Last 3 Months or Most Recently Relevant to Health Maintenance Results * BLOOD MISC TO TEABERRY (01/22/2025 12:40 PM CDT) Test name, chem CDTA,CARBOHYD RATE DEFICIENT TRANSFERRIN,A DULT SCRE [facility] Comment:Credited, test not i ndicated. Misc see comment [facility] Comment:Credited, test not i ndicated. Blood 01/22/2025 12:4 0 PM CDT 01/24/2025 2:14 PM CDT us Notinfile Unknown LAB BLOOD ORDERABLES Final Res ult Performing Organization Address [facility] Co de Phone Number [facility] Department [place] [address] [facility] * eGFR (01/22/2025 12:40 PM [...] [place]/ZIP Co de Phone Number [facility] Department [place] [address] * Differential, auto (01/22/2025 12:40 PM CDT) Neutrophil abs 2.80 1.50 - 6.50 K/cumm Imm gran abs 0.00 0.00 - 0.10 K/cumm [facility] Lymphocyte abs 2.66 0.80 - 3.30 K/cumm [facility] Monocyte abs 0.21 0.20 - 0.80 K/cumm [facility] Eosinophil abs 0.14 0.00 - 0.50 K/cumm [facility] Basophil abs 0.05 0.00 - 0.10 K/cumm [facility] Neutrophil pct 47.7 % [facility] Comment: Interpretive Data Percent cell count reference ranges are not reported, since discordance with absolute values may lead to misinterpretation of CBC data. Current Interpretive Data was last revised on 2017. Imm gran pct 0.0 % [facility] Comment: Interpretive Data Percent cell count reference ranges are not reported, since discordance with absolute values may lead to misinterpretation of CBC data. Current Interpretive Data was last revised on 2017. Lymphocyte pct 45.4 % [facility] Comment: Interpretive Data Percent cell count reference ranges are not reported, since discordance with absolute values may lead to misinterpretation of CBC data. Current Interpretive Data was last revised on 2017. Monocyte pct 3.6 % [facility] Comment: Interpretive Data Percent cell count reference ranges are not reported, since discordance with absolute values may lead to misinterpretation of CBC data. Current Interpretive Data was last revised on 2017. Eosinophil pct 2.4 % [facility] Comment: Interpretive Data Percent cell count reference ranges are not reported, since discordance with absolute values may lead to misinterpretation of CBC data. Current Interpretive Data was last revised on 2017. Basophil pct 0.9 % [facility] Comment: Interpretive Data Percent cell count reference ranges are not reported, since discordance with absolute values may lead to misinterpretation of CBC data. Current Interpretive Data was last revised on 2017. Blood 01/22/2025 12:4 0 PM CDT 01/22/2025 3:52 PM CDT us Notinfile Unknown LAB BLOOD ORDERABLES Final Res ult Performing Organization Address City/[facility] Co de Phone Number [facility] [place] [address] * (ABNORMAL) Iron profile w/ IBC (01/22/2025 12:40 PM CDT) [facility] Iron 60 35 - 145 mcg/dL TIBC 322 250 - 400 mcg/dL [facility] Transferrin saturation 19(L) 20 - 50 % [facility] Blood 01/22/2025 12:4 0 PM CDT 01/22/2025 3:52 PM CDT us Notinfile Unknown LAB BLOOD ORDERABLES Final Res ult Performing Organization Address [facility] de Phone Number [facility] [place] [address] * (ABNORMAL) CBC with auto differential (01/22/2025 12:40 PM CDT) [facility] WBC 5.86 3.80 - 9.90 K/cumm Hgb 12.9 11.9 - 15.5 g/dL [facility] Hct 39.0 35.6 - 45.5 % [facility] Plt 170 150 - 400 K/cumm [facility] MPV 11.0 9.1 - 12.3 fL [facility] RBC 4.01 3.90 - 5.20 M/cumm [facility] MCV 97.3(H) 81.3 - 96.4 fL [facility] MCH 32.2 27.1 - 33.3 pg [facility] MCHC 33.1 32.3 - 35.7 g/dL [facility] RDW CV 13.4 11.1 - 14.9 % [facility] RDW SD 47.5 35.7 - 48.1 fL [facility] NRBC abs 0.00 0.00 - 0.01 K/cumm [facility] Blood 01/22/2025 12:4 0 PM CDT 01/22/2025 3:52 PM CDT us Notinfile Unknown LAB BLOOD ORDERABLES Final Res ult Performing Organization Address [facility] de Phone Number [facility] [place] [address] * Magnesium (01/22/2025 12:40 PM CDT) Magnesium 2.0 1.4 - 2.5 mg/dL Blood 01/22/2025 12:4 0 PM CDT 01/22/2025 3:52 PM CDT us Notinfile Unknown LAB BLOOD ORDERABLES Final Res ult Performing Organization Address [facility] de Phone Number [facility] [place] [address] * Folate (01/22/2025 12:40 PM CDT) Folic acid >20.0 >=5.0 ng/mL Blood 01/22/2025 12:4 0 PM CDT 01/22/2025 3:52 PM CDT us Notinfile Unknown LAB BLOOD ORDERABLES Final Res ult Performing Organization Address [facility] de Phone Number [facility] [place] [address] * Vitamin B12 (01/22/2025 12:40 PM CDT) Vitamin B12 815 230 - 1,250 pg/mL Blood 01/22/2025 12:4 0 PM CDT 01/22/2025 3:52 PM CDT us Notinfile Unknown LAB BLOOD ORDERABLES Final Res ult Performing Organization Address [facility]/ZIP Co de Phone Number [facility] [address] [facility] Department [place] [address] * (ABNORMAL) Comprehensive metabolic panel (01/22/2025 12:40 PM CDT) Sodium 135 135 - 145 mmol/L Potassium, pl 3.4 3.3 - 4.9 mmol/L [facility] Chloride 98 97 - 110 mmol/L [facility] CO2 23 22 - 32 mmol/L [facility] Anion gap 14 2 - 15 mmol/L [facility] BUN 9 6 - 25 mg/dL [facility] Creatinine 0.63 0.60 - 1.10 mg/dL [facility] Glucose 85 70 - 199 mg/dL [facility] Comment: Interpretive Data Fasting glucose >/= 126 [...] 2022. Calcium 10.1 8.5 - 10.3 mg/dL [facility] Bilirubin, total 0.4 0.1 - 1.2 mg/dL [facility] Protein, pl 7.5 6.5 - 8.5 g/dL [facility] Albumin 4.1 3.5 - 5.0 g/dL [facility] Alk phos 139(H) 40 - 130 Units/L [facility] ALT 33 7 - 45 Units/L [facility] AST 58(H) 10 - 45 Units/L [facility] Blood 01/22/2025 12:4 0 PM CDT 01/22/2025 3:52 PM CDT us Notinfile Unknown LAB BLOOD ORDERABLES Final Res ult Performing Organization Address [facility]/ZIP Co de Phone Number [facility] Department [place] [address] * TRANSTHORACIC ECHO (TTE) COMPLETE W DOPPLER/CF W CONTRAST (01/15/2025 9:57 AM CDT) EF Mod BP 55 % CONS SCIMAGE Anatomical Region Laterality Modality Ultrasound 01/15/2025 8:50 AM CDT Narrative 01/15/2025 11:28 AM CDT [facility] [place] [place] [address] Transthoracic Echocardiographic Report Patient Name: HAYLEY LEÓN L : 1990 (34y 11m) Gender: F Study Date: 01/15/2025 08:50:13 AM Ht(Inch): 61 Wt(Lb): 102.07 BSA: 1.41 Wireless Watcher: Roza. Watkins [facility] Location: [facility] Order Provider: BO FRIED Heart Rate: [...] Note Italo Hill MD PhD - 01/15/2025 [facility] [place] [address] Transthoracic Echocardiographic Report Patient Name: HAYLEY LEÓN L : 1990 (34y 11m) Gender: F Study Date: 01/15/2025 08:50:13 AM Ht(Inch): 61 Wt(Lb): 102.07 BSA: 1.41 Wireless Watcher: Roza. Watkins [facility] Location: [facility] Order Provider:BO FRIED Heart Rate: 81 [...] LA Length 2C 3.64 cm MV Decel Rwds115.25 msec [ 104.00 - 258.00 ] LA [...] Dorothea Stephen NP LAB BLOOD ORDERABLES Krystyna mira Result [facility] Department [place] [address] * (ABNORMAL) Basic metabolic panel (01/01/2025 2:10 PM CDT) Sodium 139 135 - 145 mmol/L Potassium, pl 2.9(L) 3.3 - 4.9 mmol/L [facility] Chloride 98 97 - 110 mmol/L [facility] CO2 26 22 - 32 mmol/L [facility] Anion gap 15 2 - 15 mmol/L [facility] BUN 11 6 - 25 mg/dL [facility] Creatinine 0.63 0.60 - 1.10 mg/dL [facility] Glucose 91 70 - 199 mg/dL [facility] Comment: Interpretive Data Fasting glucose >/= 126 [...] 2022. Calcium 9.2 8.5 - 10.3 mg/dL [facility] Blood 01/01/2025 2:10 PM CDT 01/01/2025 6:04 PM CDT us Dorothea Stephen COMPUTER TERMINAL OPERATOR LAB BLOOD ORDERABLES Krystyna l Result [facility] Department [place] [address] * Glucose, random (Outreach) (12/27/2024 9:13 AM [...] LAB BLOOD ORDERABLES Krystyna meyers Result [facility] Department [place] [address] * eGFR (12/27/2024 9:13 AM CDT) Pathologist [facility] eGFR >90 >=60 mL/min/1. 73 m2 Comment: [...] CDT 12/27/2024 10:50 AM CDT us Dorothea Cecy [place] COMPUTER TERMINAL OPERATOR LAB BLOOD ORDERABLES Krystyna meyers Result [facility] Department [place] [address] * Differential, auto (12/27/2024 9:13 AM CDT) Neutrophil abs 3.36 1.50 - 6.50 K/cumm Imm gran abs 0.01 0.00 - 0.10 K/cumm [facility] Lymphocyte abs 1.97 0.80 - 3.30 K/cumm [facility] Monocyte abs 0.37 0.20 - 0.80 K/cumm [facility] Eosinophil abs 0.18 0.00 - 0.50 K/cumm [facility] Basophil abs 0.04 0.00 - 0.10 K/cumm [facility] Neutrophil pct 56.7 % [facility] Comment: Interpretive Data Percent cell count reference ranges are not reported, since discordance with absolute values may lead to misinterpretation of CBC data. Current Interpretive Data was last revised on 2017. Imm gran pct 0.2 % [facility] Comment: Interpretive Data Percent cell count reference ranges are not reported, since discordance with absolute values may lead to misinterpretation of CBC data. Current Interpretive Data was last revised on 2017. Lymphocyte pct 33.2 % [facility] Comment: Interpretive Data Percent cell count reference ranges are not reported, since discordance with absolute values may lead to misinterpretation of CBC data. Current Interpretive Data was last revised on 2017. Monocyte pct 6.2 % [facility] Comment: Interpretive Data Percent cell count reference ranges are not reported, since discordance with absolute values may lead to misinterpretation of CBC data. Current Interpretive Data was last revised on 2017. Eosinophil pct 3.0 % [facility] Comment: Interpretive Data Percent cell count reference ranges are not reported, since discordance with absolute values may lead to misinterpretation of CBC data. Current Interpretive Data was last revised on 2017. Basophil pct 0.7 % [facility] Comment: Interpretive Data Percent cell count reference ranges are not reported, since discordance with absolute values may lead to misinterpretation of CBC data. Current Interpretive Data was last revised on 2017. Blood 12/27/2024 9:13 AM CDT 12/27/2024 10:37 AM CDT Dorothea Stephen COMPUTER TERMINAL OPERATOR LAB BLOOD ORDERABLES Krystyna l Result Performing Organization Address [facility]/ZIP Co de Phone Number [facility] Department [place] [address] * (ABNORMAL) Comprehensive metabolic panel, without glucose (Outreach) (12/27/2024 9:13 AM CDT) Sodium 136 135 - 145 mmol/L Potassium, pl 2.9(L) 3.3 - 4.9 mmol/L [facility] Chloride 98 97 - 110 mmol/L [facility] CO2 24 22 - 32 mmol/L [facility] Anion gap 14 2 - 15 mmol/L [facility] BUN 9 6 - 25 mg/dL [facility] Creatinine 0.64 0.60 - 1.10 mg/dL [facility] Calcium 9.7 8.5 - 10.3 mg/dL [facility] Protein, pl 8.2 6.5 - 8.5 g/dL [facility] Albumin 4.2 3.5 - 5.0 g/dL [facility] Bilirubin, total 0.7 0.1 - 1.2 mg/dL [facility] Alk phos 175(H) 40 - 130 Units/L [facility] AST 51(H) 10 - 45 Units/L [facility] ALT 25 7 - 45 Units/L [facility] Blood 12/27/2024 9:13 AM CDT 12/27/2024 10:38 AM CDT Dorothea Stephen COMPUTER TERMINAL OPERATOR LAB BLOOD ORDERABLES Krystyna l Result Performing Organization Address City/[facility]/ZIP Co de Phone Number [facility] [place] [address] * (ABNORMAL) CBC with auto differential (12/27/2024 9:13 AM CDT) Pathologist [facility] WBC 5.93 3.80 - 9.90 K/cumm Hgb 13.9 11.9 - 15.5 g/dL [facility] Hct 40.1 35.6 - 45.5 % [facility] Plt 138(L) 150 - 400 K/cumm [facility] MPV 11.4 9.1 - 12.3 fL [facility] RBC 4.23 3.90 - 5.20 M/cumm [facility] MCV 94.8 81.3 - 96.4 fL [facility] MCH 32.9 27.1 - 33.3 pg [facility] MCHC 34.7 32.3 - 35.7 g/dL [facility] RDW CV 13.0 11.1 - 14.9 % [facility] RDW SD 45.3 35.7 - 48.1 fL [facility] NRBC abs 0.00 0.00 - 0.01 K/cumm [facility] Blood 12/27/2024 9:13 AM CDT 12/27/2024 10:37 AM CDT Dorothea Stephen NP LAB BLOOD ORDERABLES Krystyna l Result Performing Organization Address [facility] Co de Phone Number [facility] [place] [address] * Magnesium (12/27/2024 9:13 AM CDT) [facility] Magnesium 1.9 1.4 - 2.5 mg/dL Blood 12/27/2024 9:13 AM CDT 12/27/2024 10:50 AM CDT Mo Villatoro MD LAB BLOOD ORDERABLES Final Resul t Performing Organization Address City/[facility] Co de Phone Number [facility] [place] [address] * Blood culture Blood (12/27/2024 9:05 AM CDT) Report Final Report: No growth Blood 12/27/2024 9:05 AM CDT 12/27/2024 11:47 AM CDT Narrative [facility] - 12/31/2024 12:00 PM CDT Specimen [...] characteristics have been verified by the [facility] Microbiology Laboratory. For questions about this culture, contact the Microbiology Laboratory at [phone]. Interpretive data was last revised on 24. Dorothea Stephen NP LAB MICROBIOLOGY - GENERA L ORDERABLES Final Result [facility] Department [place] [address] * Blood culture Blood (12/27/2024 9:05 AM CDT) Report Final Report: No growth Blood 12/27/2024 9:05 AM CDT 12/27/2024 11:47 AM CDT Narrative [facility] - 12/31/2024 12:00 PM CDT [...] characteristics have been verified by the [facility] Microbiology Laboratory. For questions about this culture, contact the Microbiology Laboratory at [phone]. Interpretive data was last revised on 24. us Dorothea Stephen NP LAB MICROBIOLOGY - GENERA L ORDERABLES Final Result [facility] Department [place] [address] * Hepatitis panel, acute Blood (11/03/2024 2:31 PM CDT) Hep A IgM Nonreactive Nonreactive Hep B core IgM Nonreactive Nonreactive [facility] Hep C Ab Nonreactive Nonreactive [facility] Comment:Antibodies to HCV no t detected. Does NOT exclude the possibility of recent exposure to HCV. Current interpretive data was last revised on 22 HepBsAg Nonreactive Nonreactive [facility] Blood 11/03/2024 2:31 PM CDT 11/03/2024 2:38 PM CDT us Mar George MD LAB MICROBIOLOGY - GENERAL ORDERABLES Final Result [facility] Department [place] [address] * THINPREP TIS PAP REFLEX HPV mRNA E6/E7, CHLAMYDIA/N.GONORRHOEAE (09/14/2016 12:56 PM REPAIR MANAGER) [facility] Comment: LMP: [facility] PREV. PAP: [facility] - [facility] HISTORICAL RESULTS Comment:2011 PREV. BX: [facility] Comment:UNKNOWN SOURCE: [facility] HISTORICAL RESULTS Comment:Cervix, Endocervix STATEMENT OF ADEQUACY: [facility] HISTORICAL RESULTS Comment:Satisfactory for savana luation. Endocervical/transformation zone component present. INTERPRETATION/RES ULT: [facility] HISTORICAL RESULTS Comment:Negative for intraep ithelial lesion or malignancy. COMMENT: [facility] HISTORICAL RESULTS Comment:This Pap test has be en evaluated with computer assisted technology. WET CHAR CONVEYOR TENDER: [facility] EC HISTORICAL RESULTS Comment:YQ, CT(ASCP) CT scre ening location: [facility] [place] [address] [place] [address] C. trachomatis RNA NOT DETECTED NOT DETECTED [facility] - EC HISTORICAL RESULTS N. gonorrhoeae RNA NOT DETECTED NOT DETECTED [facility] HISTORICAL RESULTS COMMENT [facility] - EC HISTORICAL RESULTS Comment: This test was performed using the APTIMA COMBO2 Assay ([employer] The analytical performance characteristics of this assay, when used to test SurePath specimens have been determined by [employer]. 09/14/2016 12:5 6 PM REPAIR MANAGER 09/20/2016 11:25 AM REPAIR MANAGER Narrative [facility] HISTORICAL RESULTS - 09/20/2016 11:07 AM REPAIR MANAGER 0 PERFORMING LAB: [facility] [address] [facility] [id number] Pelon Hand MD us Irene Spivey CNM LAB PATHOLOGY ORDERABLE S Final Result Performing Organization Address City/[facility]/ZIP Co de Phone Number 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
[2025-03-11 16:17] LABS: Alanine Aminotransferase 28 U/L (6-35); Albumin Level 3.9 g/dL (3.5-5.1); Alkaline Phosphatase 119 U/L (38-126); Anion Gap 9 mmol/L (4-12); Aspartate Amino Transferase 58 U/L (14-36); Bilirubin,Total 0.4 mg/dL (0.2-1.3); Blood Urea Nitrogen 15 mg/dL (7-17); Calcium 9.4 mg/dL (8.4-10.2); Carbon Dioxide 23 mmol/L (22-30); Chloride 105 mmol/L (98-107); Estimated Glomerular Filt Rate > 60; Glucose 96 mg/dL (65-110); Magnesium 2.0 mg/dL (1.6-2.3); Potassium 3.2 mmol/L (3.4-5.0); Sodium 137 mmol/L (137-145); Total Protein 6.9 g/dL (6.3-8.2)
[2025-03-11 16:28] LABS: Anisocytosis 2+; Band Neutrophils Percent 0 % (0-6); Macrocytosis 2+ (NORMAL); Schistocytes None Seen
== END 2025-03-11 14:44 | disposition home or self-care (01) ==
LOC: ANHLAB 14:46
PROVIDERS: PCP Internal Medicine; Visit Provider Internal Medicine
DX: E83.42 Hypomagnesemia (principal); F10.99 Alcohol use, unspecified with unspecified alcohol-induced disorder; G62.9 Polyneuropathy, unspecified; E87.6 Hypokalemia
CPT/HCPCS: 36415; 80053; 83735; 85025

== ENCOUNTER 2025-03-24 16:52 | Emergency (ER) | payer OTHER, SELFPAY ==
[2025-03-24 17:12] VITALS: BP 116/77; PULSE 90; RESP 15; TEMP 36.6; O2SAT 97
--- NOTE | 2025-03-24 21:13 | PC.NURSE ---
2112-PATIENT STATES SHE IS GOING TO LEAVE. ADVISED PATIENT TO WAIT BUT PATIENT DECLINES. ADVISED PATIENT TO RETURN AT ANYTIME ESPECIALLY FOR ANY CHANGES IN CONDITION.
== END 2025-03-24 21:50 | disposition left against medical advice (07) ==
LOC: ANHED 21:34
PROVIDERS: PCP Internal Medicine
DX: K92.1 Melena (principal)
CPT/HCPCS: 99199

== ENCOUNTER 2025-03-28 18:40 | Emergency (ER) | payer OTHER, SELFPAY ==
--- NOTE | ~2025-03-28 | XR_ITS ---
EXAM/PROCEDURE: XR chest 1V portable - 03/29/2025 0:55 CDT HISTORY: 35 years old Female with N/V TECHNIQUE: AP view(s) of the chest. COMPARISON: None available. FINDINGS: LUNGS/ PLEURA: No focal consolidation. No appreciable pneumothorax or large pleural effusion. HEART/ MEDIASTINUM: Heart appears normal in size. BONES: No acute osseous abnormality. OTHER: Visualized upper abdomen is unremarkable. IMPRESSION: No acute process. Reviewed, dictated and finalized at location N. IMPRESSION: No acute process.
[2025-03-28 18:47] VITALS: BP 134/92; PULSE 99; RESP 22; TEMP 37.2; O2SAT 100
[2025-03-28 19:33] LABS: Hematocrit 37.9 % (37.0-47.0); Hemoglobin 12.9 g/dL (12.0-15.0); Immature Granulocyte Percent A 0.0 % (0-0.5); Lymphocytes Absolute Auto 1.74 K/mm3 (0.9-3.2); Mean Corpuscular HGB Conc 34.0 g/dl (32-36); Mean Corpuscular Hemoglobin 35.4 pg (26-34); Mean Corpuscular Volume 104.1 fl (80-100); Nucleated Red Blood Cells Absolute Auto 0.000 K/mm3 (0.0-0.012); Nucleated Red Blood Cells Perc 0.0 % (0.0-0.2); Platelet Count Result 204 k/mm3 (150-375); Red Blood Count 3.64 M/mm3 (4.2-5.4); White Blood Count 4.3 K/mm3 (4.5-10.0)
--- NOTE | 2025-03-28 19:41 | ED.GENADULT ---
HPI - General Adult General Chief complaint: Nausea/Vomiting/Diarrhea Stated complaint: N/V, chills, fever Time Seen by Provider: 03/28/25 19:12 History of Present Illness HPI narrative: Patient is a 35-year-old female who presents emergency department this evening complaining of nausea, vomiting and chills since yesterday. States that she has been having hard time keeping anything down since yesterday. Denies any sick contacts at home or anyone with similar symptoms. Denies any sharp abdominal pain. No additional symptoms or concerns at this time. Patient does have a G-tube secondary to history of restrictive food intake disorder. She was recently seen at our facility for similar symptoms on March 04 in the emergency department where she was treated for hypokalemia and hypomagnesemia. Prior to that she was admitted earlier in the month of February for intractable nausea and vomiting. This is a chronic condition for the patient. Related Data Home Medications ?Medication ?Instructions ?Recorded ?Confirmed ?Last Taken ?Type ferrous sulfate 325 mg (65 mg 325 mg PO BID 03/28/24 03/04/25 02/28/25 History iron) tablet,delayed release folic acid 1 mg tablet 1 mg feeding tube DAILY 03/28/24 03/04/25 02/28/25 History megestrol 20 mg tablet 20 mg feeding tube BID 03/28/24 03/04/25 02/28/25 History multivitamin with folic acid 400 1 tablet PO QAM 03/28/24 03/04/25 02/28/25 History mcg tablet (Thera) thiamine HCl (vitamin B1) 100 mg 100 mg feeding tube DAILY 03/28/24 03/04/25 02/28/25 History tablet vitamin B complex (Vitamins B 1 cap feeding tube QAM 03/28/24 03/04/25 02/28/25 History Complex capsule) lactose-reduced food with fiber See Rx Instructions .Route .COMPLEX 08/07/24 03/04/25 01/26/25 History 0.06 gram-1.5 kcal/mL oral liquid (Jevity 1.5 Chriss) buspirone 15 mg tablet 15 mg feeding tube TID 01/08/25 03/04/25 02/28/25 History cyanocobalamin (vitamin B-12) 1,000 mcg feeding tube MONTHLY 01/08/25 03/04/25 02/12/25 History 1,000 mcg tablet nicotine 14 mg/24 hr daily 1 patch transdermal Q24H 01/08/25 03/04/25 02/25/25 History transdermal patch olanzapine 5 mg tablet 5 mg feeding tube QPM 01/08/25 03/04/25 02/28/25 History oxycodone 5 mg tablet 5 mg feeding tube Q8H PRN pain 01/08/25 03/04/25 03/01/25 History ergocalciferol (vitamin D2) 1,250 1,250 mcg feeding tube WEEKLY 02/13/25 03/04/25 02/25/25 History mcg (50,000 unit) capsule famotidine 20 mg tablet 20 mg PO HS 02/13/25 03/04/25 02/28/25 History magnesium oxide 400 mg (241.3 mg 420 mg feeding tube DAILY 02/13/25 03/04/25 02/28/25 History magnesium) tablet methocarbamol 750 mg tablet 750 mg feeding tube .q4hr 02/13/25 03/04/25 02/28/25 History nadolol 20 mg tablet 20 mg feeding tube DAILY 02/13/25 03/04/25 02/28/25 History simethicone 80 mg chewable tablet 80 mg feeding tube QID PRN 02/13/25 03/04/25 Unknown History abdominal distention Allergies Allergy/AdvReac Type Severity Reaction Status Date / Time latex Allergy Rash Verified 03/24/25 17:15 melatonin AdvReac Mild chest Verified 03/24/25 17:15 heaviness Review of Systems Review of Systems: All systems are reviewed and are negative unless stated otherwise in the HPI. [facility] Past Medical History Medical History Cardiac arrest with ventricular fibrillation October 2024 Adrenal insufficiency Depression with anxiety Avoidant/restrictive food intake disorder Cannabis abuse Elevated LFTs Mitral valve prolapse Surgical History Surgical History History of percutaneous endoscopic gastrostomy Family History Family History Mother Heart attack Mitral valve prolapse Grandparent Cancer Grandparent Mitral valve prolapse Social History Social History Social History: Surrogate medical decision maker: Jorge Luis Centeno, significant other. Code status: Full code. Smoking packs per day: 0.5 Smoking cigarettes per day: 10.0 Years smoked: 20 Smoking pack-years: 10.00 Smoking status: Current every day smoker Tobacco type: cigarettes Alcohol intake: current Drinks per week: 4 Alcohol use details: States she drinks 1 pint a week Substance use: former Substance use type: marijuana Other substance usage details: weekly Last use: 01/22/2025 Do You Feel Safe in your Home?: Yes Lack of Transportation: No Lack of Food: Never True Current Housing: I Have Housing Concerned About Future Housing: No Difficulty Paying Gas/Electric Bills: No Difficulty Paying for Meds: No Currently Unemployed: No Education: Decline to Answer Difficulty w/ Childcare or Family Care: No Living arrangements: with family Additional living arrangements comments: with 7 year old son and fianc? Occupation/Education: unemployed Spiritual care concerns: No Agree to blood products: Yes Exam Narrative: General: Alert, awake, afebrile, in no acute distress. HEENT: PERRL, no rhinorrhea, no post nasal drip, oropharynx clear. Neck: Trachea midline, no JVD, no lymphadenopathy. Cardiovascular: Regular rate and rhythm, no murmurs, rubs or gallops, no peripheral edema. Respiratory: Clear to auscultation bilaterally, no tachypnea, no wheezing, no rhonchi, no rubs, no respiratory distress. Abdomen: Soft, nontender, nondistended, no rebound, no guarding, no peritoneal signs, G-tube in place. Musculoskeletal: No joint swelling or deformity, normal muscle tone. Skin: No rashes or petechia, no signs of infection. Psychiatric: Alert and oriented, normal behavior and judgment for situation. Neurological: Alert and oriented to person, place, and time. Follows all commands. No focal deficits, speech is clear and fluent. Course Vital Signs Vital signs: Vital Signs Temperature 99 F 03/28/25 18:47 Pulse Rate 99 03/28/25 18:47 Respiratory Rate 22 H 03/28/25 18:47 Blood Pressure 134/92 H 03/28/25 18:47 Pulse Oximetry 100 03/28/25 18:47 Temperature 99 F 03/28/25 18:47 Pulse Rate 91 09/04/25 22:45 Respiratory Rate 20 03/28/25 22:45 Blood Pressure 114/82 03/28/25 22:45 Pulse Oximetry 97 03/28/25 22:45 Medical Decision Making MDM Narrative Medical decision making narrative: The patient was evaluated by myself in the emergency department. History is obtained from patient who is an independent historian and physical exam was performed. External medical records were reviewed at this time. IV was established and pertinent tests were ordered. Patient was administered 1 L IV fluid bolus with normal saline and 4 mg of IV Zofran for nausea/vomiting. Patient was requesting pain medication for her chronic bilateral like pain and she was administered 4 mg IV morphine for this. Patient continues to complain of nausea and at this time she was administered 10 mg of IV Reglan, 20 mg IV Pepcid and 25 mg of IV Benadryl. EKG was obtained and palate interpreted by me revealing sinus rhythm rate of 80 beats per minute, no evidence of acute ischemia. EKG currently pending official cardiology read. Laboratory results obtained revealing hypo magnesemia of 1.2 and hypokalemia of 2.9 otherwise unremarkable. Liver enzymes were noted to be elevated with an AST of 104 and an ALT of 56, however, this is chronic for the patient. At this time, patient was administered a total of 40 mEq of IV potassium over a 4 hour. With maintenance fluids with normal saline at a rate of 100 cc/hour. She was also administered 4 g of IV magnesium also over a 4 hour period. Imaging studies obtained included a portable chest x-ray which was independently interpreted by me revealing no acute cardiopulmonary process. X-ray currently pending official radiology read. Differential diagnosis considerations include acute viral syndrome, dehydration, electrolyte derangements. Comorbidities impacting this visit include none. I have evaluated and discussed social determinants of health with the patient that could potentially impact subsequent diagnosis and treatment plans. On repeat assessment of the patient, reevaluation revealed that the patient is doing well and is in no acute distress. Patient symptoms have improved since she arrived to our emergency department. Repeat vital signs were all reviewed and noted to be stable. Differential diagnosis and treatment plan were discussed with the patient at bedside. Patient agrees with discussion and after shared medical decision making agrees with discharge. All questions were answered to the patient's satisfaction. Patient will follow up with her PCP in 3-5 days. Patient was provided with strict return precautions and instructed to return to the emergency department if any new or worsening symptoms develop. The patient was discharged in stable condition. Vital Signs Vital Signs: Vital Signs Temperature 99 F 03/28/25 18:47 Pulse Rate 99 03/28/25 18:47 Respiratory Rate 22 H 03/28/25 18:47 Blood Pressure 134/92 H 03/28/25 18:47 Pulse Oximetry 100 03/28/25 18:47 Temperature 99 F 03/28/25 18:47 Pulse Rate 91 03/28/25 22:45 Respiratory Rate 20 03/28/25 22:45 Blood Pressure 114/82 03/28/25 22:45 Pulse Oximetry 97 03/28/25 22:45 Lab Data 03/28/25 19:26 03/28/25 19:26 Labs: Lab Results 03/28/25 03/28/25 03/28/25 Range/Units 19:26 19:26 20:53 WBC 4.3 L (4.5-10.0) K/mm3 RBC 3.64 L (4.2-5.4) M/mm3 Hgb 12.9 (12.0-15.0) g/dL Hct 37.9 (37.0-47.0) % MCV 104.1 H (80-100) fl MCH 35.4 H (26-34) pg MCHC 34.0 (32-36) g/dl RDW 14.8 H (11.5-14.5) % Plt Count 204 (150-375) k/mm3 MPV 9.9 (7.4-10.4) fl Immature Gran % (Auto) 0.0 (0-0.5) % Neut % (Auto) 49.1 (45.5-73.1) % Lymph % (Auto) 40.6 (18.3-44.2) % Beauregard % (Auto) 7.5 (2.6-8.5) % Eos % (Auto) 1.2 (0-4.4) % Baso % (Auto) 1.6 H (0.2-1.2) % Lymph # (Auto) 1.74 (0.9-3.2) K/mm3 Beauregard # (Auto) 0.3 (0.1-0.6) K/mm3 Eos # (Auto) 0.1 (0-0.3) K/mm3 Baso # (Auto) 0.1 (0.0-0.1) K/mm3 Abs Immat Gran (auto) 0.00 (0.00-0.031) K/mm3 Absolute Neuts (auto) 2.1 (1.3-6.7) K/mm3 Absolute Nucleated RBC 0.000 (0.0-0.012) K/mm3 Nucleated RBC % 0.0 (0.0-0.2) % Sodium 141 (137-145) mmol/L Potassium 2.9 L (3.4-5.0) mmol/L Chloride 100 (98-107) mmol/L Carbon Dioxide 20 L (22-30) mmol/L Anion Gap 21 H (4-12) mmol/L BUN 7 D (7-17) mg/dL Creatinine 0.60 L (0.7-1.0) mg/dL Estim Creat Clear Calc 85 ml/min Estimated GFR > 60 (59 - ) Glucose 108 (65-110) mg/dL Calcium 9.3 (8.4-10.2) mg/dL Magnesium 1.2 L Cancelled (1.6-2.3) mg/dL Total Bilirubin 1.0 (0.2-1.3) mg/dL AST 104 H (14-36) U/L ALT 56 H (6-35) U/L Alkaline Phosphatase 177 H (38-126) U/L Total Protein 7.6 (6.3-8.2) g/dL Albumin 4.3 (3.5-5.1) g/dL Lipase 124 (23-300) U/L Urine Color Dark yellow (Yellow) Urine Appearance Cloudy H (Clear) Urine pH 5.0 (5.0-9.0) Ur Specific Murray 1.022 (1.001-1.035) Urine Protein 1+ H (Negative) mg/dL Urine Glucose (UA) Negative (Negative) mg/dL Urine Ketones Trace H (Negative) mg/dL Ur Blood (Man) Negative (Negative) Urine Nitrate Negative (Negative) Urine Bilirubin 1+ H (Negative) Urine Urobilinogen 1.0 (<2.0) mg/dL Leukocyte Esterase Rfl Negative (Negative) BECKY/UL Urine RBC 0-2 (0-2) /hpf Urine WBC 6-10 H (0-3) /hpf Ur Squamous Epith Cells Occasional (Few) /hpf Urine Bacteria None seen /hpf Urine Casts 3-5 POC Urine HCG, Qual (Negative) Influenza A (RT-PCR) Negative (Negative) Influenza B (RT-PCR) Negative (Negative) RSV (RT-PCR) Negative (Negative) SARS-CoV-2 RNA (RT-PCR) Negative (Negative) 03/28/25 Range/Units 21:49 WBC (4.5-10.0) K/mm3 RBC (4.2-5.4) M/mm3 Hgb (12.0-15.0) g/dL Hct (37.0-47.0) % MCV (80-100) fl MCH (26-34) pg MCHC (32-36) g/dl RDW (11.5-14.5) % Plt Count (150-375) k/mm3 MPV (7.4-10.4) fl Immature Gran % (Auto) (0-0.5) % Neut % (Auto) (45.5-73.1) % Lymph % (Auto) (18.3-44.2) % Beauregard % (Auto) (2.6-8.5) % Eos % (Auto) (0-4.4) % Baso % (Auto) (0.2-1.2) % Lymph # (Auto) (0.9-3.2) K/mm3 Beauregard # (Auto) (0.1-0.6) K/mm3 Eos # (Auto) (0-0.3) K/mm3 Baso # (Auto) (0.0-0.1) K/mm3 Abs Immat Gran (auto) (0.00-0.031) K/mm3 Absolute Neuts (auto) (1.3-6.7) K/mm3 Absolute Nucleated RBC (0.0-0.012) K/mm3 Nucleated RBC % (0.0-0.2) % Sodium (137-145) mmol/L Potassium (3.4-5.0) mmol/L Chloride (98-107) mmol/L Carbon Dioxide (22-30) mmol/L Anion Gap (4-12) mmol/L BUN (7-17) mg/dL Creatinine (0.7-1.0) mg/dL Estim Creat Clear Calc ml/min Estimated GFR (59 - ) Glucose (65-110) mg/dL Calcium (8.4-10.2) mg/dL Magnesium (1.6-2.3) mg/dL Total Bilirubin (0.2-1.3) mg/dL AST (14-36) U/L ALT (6-35) U/L Alkaline Phosphatase (38-126) U/L Total Protein (6.3-8.2) g/dL Albumin (3.5-5.1) g/dL Lipase (23-300) U/L Urine Color (Yellow) Urine Appearance (Clear) Urine pH (5.0-9.0) Ur Specific Murray (1.001-1.035) Urine Protein (Negative) mg/dL Urine Glucose (UA) (Negative) mg/dL Urine Ketones (Negative) mg/dL Ur Blood (Man) (Negative) Urine Nitrate (Negative) Urine Bilirubin (Negative) Urine Urobilinogen (<2.0) mg/dL Leukocyte Esterase Rfl (Negative) BECKY/UL Urine RBC (0-2) /hpf Urine WBC (0-3) /hpf Ur Squamous Epith Cells (Few) /hpf Urine Bacteria /hpf Urine Casts POC Urine HCG, Qual Negative (Negative) Influenza A (RT-PCR) (Negative) Influenza B (RT-PCR) (Negative) RSV (RT-PCR) (Negative) SARS-CoV-2 RNA (RT-PCR) (Negative) Discharge Plan Discharge Clinical Impression: Nausea and vomiting in adult, Acute hypokalemia, Hypomagnesemia Patient Disposition: Home Condition: Improved Instructions: Antibiotic Form, Hypokalemia (ED), Acute Nausea and Vomiting (ED), Hypomagnesemia (ED) Additional Instructions: Please follow-up with the family doctor within the next 3-5 days. Return to emergency department if any new or worsening symptoms develop. Patient Language: Kyrgyz Prescriptions: No Action olanzapine 5 mg tablet 5 mg feeding tube QPM buspirone 15 mg tablet 15 mg feeding tube TID cyanocobalamin (vitamin B-12) 1,000 mcg tablet 1,000 mcg feeding tube MONTHLY oxycodone 5 mg tablet 5 mg feeding tube Q8H PRN (Reason: pain) nicotine 14 mg/24 hr patch 24 hour 1 patch transdermal Q24H Xarelto 20 mg Tablet 20 mg PO DAILY@1700 Qty: 30 0RF ergocalciferol (vitamin D2) 1,250 mcg (50,000 unit) capsule 1,250 mcg feeding tube WEEKLY famotidine 20 mg tablet 20 mg PO HS methocarbamol 750 mg tablet 750 mg feeding tube .q4hr nadolol 20 mg tablet 20 mg feeding tube DAILY simethicone 80 mg tablet,chewable 80 mg feeding tube QID PRN (Reason: abdominal distention) Patient Comments: after meals and at bedtime magnesium oxide 400 mg (241.3 mg magnesium) tablet 420 mg feeding tube DAILY thiamine HCl (vitamin B1) 100 mg tablet 100 mg feeding tube DAILY folic acid 1 mg tablet 1 mg feeding tube DAILY ferrous sulfate 325 mg (65 mg iron) tablet,delayed release (DR/EC) 325 mg PO BID Rx Instructions: patient administers via feeding tube megestrol 20 mg tablet 20 mg feeding tube BID vitamin B complex [Vitamins B Complex] Capsule 1 cap feeding tube QAM multivitamin with folic acid [Thera] 400 mcg tablet 1 tablet PO QAM Rx Instructions: pt administers via feeding tube Jevity 1.5 Chriss 0.06 gram-1.5 kcal/mL liquid See Rx Instructions .ROUTE .COMPLEX Rx Instructions: 75ml one to two times a day. potassium chloride 10 mEq capsule, extended release 10 meq feeding tube DAILY Qty: 60 0RF metoclopramide HCl [Reglan] 10 mg tablet 10 mg PO Q6H Qty: 120 0RF Follow-up/Referrals: Mo Mitchell MD [Primary Care Provider, Hospitalist] - 3 Days Time of Disposition: 21:03
[2025-03-28 19:44] LABS: Alanine Aminotransferase 56 U/L (6-35); Albumin Level 4.3 g/dL (3.5-5.1); Alkaline Phosphatase 177 U/L (38-126); Anion Gap 21 mmol/L (4-12); Aspartate Amino Transferase 104 U/L (14-36); Bilirubin,Total 1.0 mg/dL (0.2-1.3); Blood Urea Nitrogen 7 mg/dL (7-17); Calcium 9.3 mg/dL (8.4-10.2); Carbon Dioxide 20 mmol/L (22-30); Chloride 100 mmol/L (98-107); Estimated CRCL calculation 85 ml/min; Estimated Glomerular Filt Rate > 60; Glucose 108 mg/dL (65-110); Lipase 124 U/L (23-300); Magnesium 1.2 mg/dL (1.6-2.3); Potassium 2.9 mmol/L (3.4-5.0); Sodium 141 mmol/L (137-145); Total Protein 7.6 g/dL (6.3-8.2)
[2025-03-28] MEDS: SODIUM CHLORIDE 0.9% IV 1,000 ML 999 ML IV CONT ×2 (20:07→22:26)
[2025-03-28] MEDS: MORPHINE SULFATE (*CRX) 4 MG/ML INJ ×2 (20:08→22:26)
[2025-03-28 20:09] LABS: Influenza A QL RT-PCR Negative (Negative); Influenza B QL RT-PCR Negative (Negative); RSV RNA, RT-PCR Negative (Negative); SARS-CoV-2 RNA PCR Negative (Negative)
[2025-03-28] MEDS: ONDANSETRON INJ 4 MG/2 ML VIAL IV PUSH (20:09)
[2025-03-28] MEDS: KCL 20 MEQ/SW 100 ML 100 ML 50 MEQ IVPB ×2 (20:13→22:25)
[2025-03-28] MEDS: MAGNESIUM SULF 4 GM/WATER100ML 4 GM/100 ML BAG IVPB (20:19)
[2025-03-28 21:07] LABS: Add Urine Microscopic? YES; Appearance Urine Cloudy (Clear); Glucose Urine UA Negative (Negative); Leukocyte Esterase Ur Negative LEU/UL (Negative); Nitrate Urine Negative (Negative); Specific Grav Ur 1.022 (1.001-1.035)
[2025-03-28 21:47] VITALS: BP 116/89; PULSE 86; RESP 20; O2SAT 99
[2025-03-28 21:51] LABS: BEDSIDEPREGUCG Negative (Negative)
--- NOTE | 2025-03-28 22:13 | PC.NURSE ---
VORB EDP Elbashir for 2nd dose of 4mg morphine and 4mg zofran.
[2025-03-28] MEDS: ONDANSETRON INJ 4 MG/2 ML VIAL (22:26)
[2025-03-28 22:45] VITALS: BP 114/82; PULSE 91; RESP 20; O2SAT 97
--- NOTE | 2025-03-29 00:40 | ECG_ITS ---
Test Date: 2025-03-29 00:45:51 Measurements Intervals [place] Rate: 80 P: 54 VA: 134 QRS: 49 QRSD: 86 T: 18 QT: 395 QTc: 458 Interpretive Statements SINUS RHYTHM LOW QRS VOLTAGE NONSPECIFIC T-WAVE ABNORMALITIES Compared to ECG 03/05/2025 06:15:28 NO SIGNIFICANT CHANGES Electronically Signed On 03-29-2025 12:35:36 CDT by [place] M.D.
[2025-03-29 01:20] VITALS: PULSE 87; RESP 20; O2SAT 99
[2025-03-29] MEDS: FAMOTIDINE 20 MG/2 ML VIAL IV PUSH (01:25)
[2025-03-29] MEDS: METOCLOPRAMIDE HCL INJ 10 MG/2 ML VIAL IV PUSH (01:26)
[2025-03-29] MEDS: KETOROLAC 15 MG/ML VIAL (*BKC) IV PUSH (01:26)
== END 2025-03-29 01:28 | disposition home or self-care (01) ==
PROVIDERS: Emergency Provider Emergency Medicine; PCP Internal Medicine
DX: R11.2 Nausea with vomiting, unspecified (principal); E87.6 Hypokalemia; E83.42 Hypomagnesemia; Z20.822 Contact with and (suspected) exposure to COVID-19; I34.1 Nonrheumatic mitral (valve) prolapse; E27.40 Unspecified adrenocortical insufficiency; F50.82 Avoidant/restrictive food intake disorder; Z68.21 Body mass index [BMI] 21.0-21.9, adult; F41.8 Other specified anxiety disorders; F17.210 Nicotine dependence, cigarettes, uncomplicated; Z93.1 Gastrostomy status; Z79.01 Long term (current) use of anticoagulants; Z79.899 Other long term (current) drug therapy; R94.31 Abnormal electrocardiogram [ECG] [EKG]
CPT/HCPCS: 36415; 71045; 80053; 81001; 81025; 83690; 83735; 85025; 87086; 87186; 87637; 93005; 96365; 96366; 96367; 96374; 96375; 96376; 99284; J1200; J1885; J2270; J2405; J2765; J3475; J3480; J7030

== ENCOUNTER 2025-04-16 11:54 | Inpatient (IN) | payer OTHER, SELFPAY ==
[2025-04-16] VITALS (19 sets, daily range): BP systolic 95–136; BP diastolic 63–83; PULSE 68–105; RESP 16–29; TEMP 37.1; O2SAT 95–100; BMI 22.8
--- NOTE | ~2025-04-16 | CT_ITS ---
Ester León EXAMINATION: CT abdomen pelvis w con COMPARISON: None HISTORY: lower abd pain TECHNIQUE: Axial images were obtained through the abdomen, pelvis post administration of IV contrast. Oral contrast was also administered. Coronal reconstruction images were obtained from the axial views. CT scan performed using dose optimization techniques including the following automated exposure control; adjustment of mA and/or kV; use of iterative reconstruction technique. Automatic exposure control was used to reduce radiation dose. Permanent radiation dose record is archived to PACS. FINDINGS: CT abdomen: LUNG BASES: The lung bases are clear. The visualized portions of the heart and pericardium are unremarkable. LIVER: Mild hepatic steatosis. Portal vein patent. No intrahepatic biliary duct dilatation. SPLEEN: Unremarkable. KIDNEYS: Right Kidney: Unremarkable. No calculi. No hydronephrosis. Left Kidney: Unremarkable. No calculi. No hydronephrosis ADRENAL GLANDS: Unremarkable. PANCREAS: Unremarkable. GALLBLADDER/BILIARY: Unremarkable. No biliary dilatation. STOMACH AND ESOPHAGUS: Gastrostomy tube noted. The stomach is decompressed. BOWEL/MESENTERY: There is hyperemia with thickening of the large bowel with involvement of the entire large bowel with pericolonic stranding but no perforation or abscess. Appendix normal. Remaining mesentery normal. No dilated or thickened loops of small bowel. There are some minimally hyperemic distal small bowel loops noted. ADENOPATHY/RETROPERITONEUM: No lymphadenopathy. AORTA/VASCULATURE: Normal caliber aorta. FREE FLUID OR FREE AIR: None. CT pelvis: SOLID ORGANS/REPRODUCTIVE: Unremarkable. BLADDER: Within normal limits. OSSEOUS STRUCTURES: No acute osseous abnormality.No suspicious lesions. OVERLYING SOFT TISSUES: Unremarkable. IMPRESSION: Severe probable enterocolitis. Diffuse involvement of the large bowel can be seen with pseudomembranous colitis. Clinical correlation is required. There is no perforation or abscess. Reviewed, dictated and finalized at location A. IMPRESSION: Severe probable enterocolitis. Diffuse involvement of the large bowel can be se en with pseudomembranous colitis. Clinical correlation is required. There is no perforation or abscess.
--- NOTE | ~2025-04-16 | XR_ITS ---
EXAMINATION: XR chest 1V portable 04/16/2025 15:44 INDICATION: Chest pain PROCEDURE: AP portable chest COMPARISON: Comparison to multiple prior studies sequentially, with oldest reviewed study dated 01/08/2025. FINDINGS: The lungs are clear. The cardiomediastinal silhouette is within normal limits. There are no pleural effusions. There is no pneumothorax suspected. IMPRESSION: 1: NO ACUTE CARDIOPULMONARY DISEASE. Reviewed, dictated and finalized at location O.
--- OUTSIDE RECORDS SUMMARY | 2025-04-16 12:24 | XMS_ITS | Encounter Summary ---
Author Organization [facility] Care Team Providers Care Cra Name Role Phone Christian Merritt MD Primary Care Provider [phone] Mo Mitchell MD Primary Care Provider Neeta Ott RN Unavailable [phone] Encounter Details Date Type Department Care Team (Latest Contact Info) Description 12/09/2016 Orders Only [facility]INCON[facility] ProviderSerge MD [address] [place] [id number] Social History Tobacco Use Types Packs/Day Years Used Date Smoking Tobacco: Never Assessed Comments Unknown Sex and Gender Information Value Date Recorded Sex Assigned at Not on file 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 difficile suspected 11/01/2024 11/01/202411/01 2:50 PM CDT VRE 11/01/2024 11/01/2024 C. difficile suspected 11/09/2024 11/09/202411/09 12:40 PM CDT documented as of this encounter Care Teams Cra Relationship Specialty Start Date End Date Christian Merritt MD PCP - General Emergency Medicine 06/10/22 10/30/24 Mo Mitchell MD [address] [place] [address] [place] [address] PCP - General Internal Medicine 10/31/24 Neeta Ott, RN [address] [address] [facility] Outpatient Civil Engineer In Training 11/29/24 12/06/24 documented as of this encounter
--- OUTSIDE RECORDS SUMMARY | 2025-04-16 12:24 | XMS_ITS | Clinical Summary ---
Author Organization [facility] Address [address] [place] [address] Care Team Providers Care Facilities Painter Name Role Phone Mo Mitchell MD Primary Care Provider [phone] Allergies Active Allergy Reactions Criticality Noted Date [...] for diarrhea 100 mL 5 Active multivit lbjnyxyp-kgqz-O A-calcium (THERA-M) 9 mg iron-400 mcg tabletIndicatio [...] daily until blood thinner is received from electric wirer office Indications: treatment to prevent a heart [...] Encounters Date Type Department Care Team Description 04/02/2025 Telephone [facility] Medicine Cardiothoracic Surgery [address] [facility] Advanced Medicine 8th Floor [address] Room [address] [place] [phone] Bo Fried MD 03/12/2025 4:03 PM CDT - 03/12/2025 11:59 PM CDT Hospital Encounter [facility] Cardiac Diagnostic Lab [address] [facility] 8th [place] [phone] Mass of left cardiac ventricle Discharge Disposition: Discharge to home or self care 02/22/2025 Home Care Visit [facility] Health - [address] [place] [address] Nayely Pedroza, BRITTANIE SN VIRTUAL NON OASIS DISCHARGE 02/20/2025 Home Care Visit [address] [place] [address] Nayely Pedroza, BRITTANIE TELEPHONE ENCOUNTER 02/19/2025 Home Care Visit [address] [place] [address] Nayely Pedroza, RN TELEPHONE ENCOUNTER 02/15/2025 Orders Only [facility] Medicine Cardiothoracic Surgery [address] [facility] 8th Floor [address] Room [address] [place] [phone] Bo Fried MD Mass of left cardiac ventricle (Primary Dx) 02/15/[address] [facility] Home Care Services [address] [facility] [address] [place] [address] Unknown, Notinfile 02/14/[address] [facility] Home Care Services [address] [facility] [address] [place] [phone] Salas, Summer 02/13/2025 Orders Only [facility] Cardiothoracic Surgery [address] [facility] 8th Floor [address] Room [address] [place] [phone] Bo Fried MD Mass of left cardiac ventricle (Primary Dx) 02/12/2025 2:30 PM CDT Home Care Visit [address] [address] [address] [place] [address] Nayely Pedroza, BRITTANIE SN HOME VISIT 02/07/2025 10:00 AM CDT Home Care Visit [address] [place] [address] Isabelle Campbell, OT OT INITIAL EVALUATION 02/07/2025 9:00 AM CDT Home Care Visit [address] [place] [address] Pia Swan RN SN HOME VISIT 02/07/2025 Telephone [facility] Medicine Infectious Diseases [address] [facility] [address] [place] [phone] Rosangela Simental, NURSING HOME SOCIAL WORKER 02/06/2025 2:00 PM CDT Home Care Visit [address] [address] [place] [address] Thang Solorzano, PT PT INITIAL EVALUATION 02/05/2025 Home Care Visit [address] [address] [place] [address] Pia Moon, BRITTANIE TELEPHONE ENCOUNTER 02/01/2025 Telephone [facility] Medicine Cardiology [address] [facility] 8th [place] [address] [place] [phone] Scheduling Appointments 01/31/2025 2:00 PM CDT Home Care Visit [address] [address] [place] [address] Nayely Pedroza, BRITTANIE SN OASIS RECERTIFICATION 01/31/2025 Plan of Care Documentation [address] [address] [place] [address] 01/29/2025 Home Care Visit [address] [place] [address] Nayely Pedroza, BRITTANIE TELEPHONE ENCOUNTER 01/28/2025 Home Care Visit [address] [address] [place] [address] Nayely Pedroza, RN TELEPHONE ENCOUNTER 01/24/2025 9:40 AM CDT Office Visit [facility] Medicine Infectious Diseases [address] [facility] [address] [place] [phone] Dorothea Stephen NP MSSA bacteremia (Primary Dx) 01/22/2025 12:40 PM CDT - 01/22/2025 11:59 PM CDT Hospital Encounter [facility] [address] [place] [address] Discharge Disposition: Discharge to home or self care 01/22/2025 12:00 PM CDT Home Care Visit [address] [place] [address] Nayely Pedroza, BRITTANIE SN HOME VISIT 01/18/2025 10:30 AM CDT Home Care Visit [address] [place] [address] Billy Zarco, BRITTANIE SN OASIS RESUMPTION OF CARE 01/18/2025 Plan of Care Documentation [address] [place] [address] 01/17/[address] [facility] Medical Group Cardiology [address] [place] [phone] Oz Noble MD 01/17/2025 Home Care Visit [address] [place] [address] Pia Moon, RN SN OASIS TRANSFER W/OUT DC 01/16/2025 Home Care Visit [address] [place] [address] Pia Moon, RN TELEPHONE ENCOUNTER 01/15/2025 10:00 AM CDT Office Visit [facility] Medicine Cardiothoracic Surgery [address] [facility] Medicine 8th Floor [address] Room [address] [place] [phone] Bo Fried MD Mass of left cardiac ventricle 01/15/2025 8:15 AM CDT - 01/15/2025 11:59 PM CDT Hospital Encounter [facility] Cardiac Diagnostic Lab [address] [facility] 8th [place] [phone] Bo Fried MD MSSA bacteremia; Thrombocytopenia Discharge Disposition: Discharge to home or self care 01/14/[address] [facility] Home Care Services [address] [facility] [address] [place] [address] Ondina Salas [facility] from Last 3 Months Immunizations Immunization Administration [...] materials from doctor or pharmacy Sometimes 01/18/2025 [facility] Utilities Answer Date Recorded In the past 12 months has e [employer], gas, oil, or water [employer] threatened to shut off services in your [...] week 11/29/2024 How often do you attend [facility] or orthodox services? Never 11/29/2024 Do you belong to any clubs o r organizations such as pentecostal groups, unions, fraternal or athletic groups, or [...] any time in the past 12 m [facility], were you homeless or living in a nursing home (including now)? No 11/29/2024 Personal Safety Answer Date Recorded Have you ever been in or are you currently in a harmful physical or emotional relationship or is someone making you feel afraid or unsafe? Denies 10/31/2024 Comments No Sex and Gender Information Value Date Recorded Sex Assigned at Not on file Legal Sex Female 8:06 PM WAREHOUSE SHIPPER Gender Identity Not on file Sexual Orientation [...] Procedure Name Priority Date/Time Associated Diagnosis Comments TRANSTHORACIC ECHO (TTE) COMPLETE W DOPPLER/CF W CONTRAST Routine 03/12/2025 5:26 PM CDT Mass of left cardiac ventricle BLOOD MISC TO [place] Routine 01/22/2025 12 :40 PM CDT EGFR [...] 01/15/2025 9:57 AM CDT MSSA bacteremia Thrombocytopenia HEPATITIS PANEL, ACUTE Routine 2:31 PM CDT THINPREP TIS PAP REFLEX HPV MRNA E6/E7, CHLAMYDIA/N.GONORRHOEA E Routine 09/14/2016 12:56 PM WAREHOUSE SHIPPER from Last 3 Months or Most Recently Relevant to Health Maintenance Results * TRANSTHORACIC ECHO (TTE) COMPLETE W DOPPLER/CF W CONTRAST (03/12/2025 5:26 PM CDT) EF Mod BP 59 % CONS SCIMAGE Anatomical Region Laterality Modality Ultrasound 03/12/2025 4:09 PM CDT Narrative 03/13/2025 8:00 AM CDT [facility] Cardiac [place] [address] Transthoracic Echocardiographic Report Patient Name: HAYLEY LEÓN L : 1990 (35y 1m) Gender: F Study Date: 03/12/2025 04:09:57 PM Ht(Inch): 60 Wt(Lb): 110.01 BSA: 1.45 Real Estate Broker: Sofia Campos RDCS Location: [facility] Order Provider: BO FRIED Heart Rate: 68 BMI: 21.48 BP: 115 / 73 Ref Provider: BO FRIED PROCEDURES: Echocardiographic Report: Transthoracic complete echo with strain imaging and contrast, 2D, spectral and tissue Doppler, color flow Doppler, M-mode. Contrast: Contrast Enhancement was Employed: After initial imaging due to sub- optimal quality related to co-morbidity defined by patient's body habitus, due to suboptimal image quality with inadequate visualization of at least 2 of 16 LV wall segments in any view after initial imaging. Perflutren contrast was administered using the volume necessary to obtain adequate images and. 1.9 ml Optison Administered, (1.1 ml wasted). Technically difficult study due to: Poor acoustic windows. INDICATIONS: I51.89 Other ill-defined heart diseases. CONCLUSIONS: 1. Moderately dilated left ventricle based on volume index. Normal LV wall thickness. Markedly trabeculated LV with localized echodensity (see below); recommend repeat cardiac MRI as was previously suggested. Normal left ventricular systolic function. The Ejection Fraction (Moon's) is measured at 59 %. The average global longitudinal strain is normal. 2. Normal right ventricular size. Normal right ventricular systolic function. 3. The estimated right ventricular systolic pressure is 25 mmHg. ATTESTATION: I have personally reviewed and interpreted this study without fellow or resident. - DISCLAIMER: The study images and the final report will be retained in the patient chart by the Echo Laboratory for the legally required time period. This chart constitutes the legal record of any testing performed. FINDINGS: Left Ventricle: Moderately dilated left ventricle based on volume index. Normal LV wall thickness. Normal left ventricular systolic function. The Ejection Fraction (Moon's) is measured at 59 %. The average global longitudinal strain is normal. The LV global strain is: -18.7 %. Markedly trabeculated LV; localized apical echodensity (views 102 & 103) measuring 0.8 X 1.2 cm; no wall motion abnormalities noted. No enhancement of this area after echo-contrast; differential diagnosis includes myocardial band of muscle; tumor has to be excluded with cardiac MRI. Right Ventricle: Normal right ventricular size. Normal right ventricular systolic function. Left Atrium: The left atrium is normal in size. Right Atrium: The right atrium is normal in size. Mitral Valve: Normal mitral valve structure. No mitral regurgitation. No stenosis present. Aortic Valve: Normal trileaflet aortic valve. No aortic regurgitation. No aortic valve stenosis. The mean transaortic gradient is 2 mmHg. The aortic valve area by the continuity equation (using VTI) is 2.41 cm2. Aortic valve dimensionless index is 0.80. Tricuspid Valve: Normal Tricuspid valve structure. Mild tricuspid regurgitation. The estimated right ventricular systolic pressure is 25 mmHg. Pulmonic Valve: Normal pulmonic valve structure. No pulmonic regurgitation. No pulmonic valve stenosis present. Pericardium: Normal pericardium without pericardial effusion. Aorta: Normal aortic root size at sinuses of Valsalva. Normal aortic root size when indexed. The ascending aorta is normal in size when indexed. IVC: The IVC was <2.1 cm and collapsibility >50%. (est. RA pressure 0-5 mmHg). PASP: Normal estimated pulmonary artery systolic pressure. Rhythm: Normal Sinus rhythm was seen during the study. MEASUREMENTS: 2D/MM Value Range Doppler Value Range LVIDd 2D 4.26 cm [ 3.80 - 5.20 ] AV Peak Alvaro 1.0 m/s [ 1.0 - 1.7 ] LVIDs 2D 3.00 cm [ 2.20 - 3.50 ] AV Peak PG 4.00 mmHg IVSd 2D 0.62 cm [ 0.60 - 0.90 ] AV Mean PG 2 mmHg LVPWd 2D 0.69 cm [ 0.60 - 0.90 ] AV VTI 19.3 cm LV Thickness Ratio 0.9 LVOT Peak Alvaro 0.9 m/s [ 0.7 - 1.1 ] LV FS 2D 29.69 % [ 27.00 - 45.00 ] LVOT Peak PG 3.24 mmHg LV Mass 2D 82.53 g LVOT Mean PG 2 mmHg LV Mass Index 2D 56.92 g/m2 LVOT VTI 15.4 cm RWT 0.32 LVOT Diam 1.96 cm EDV Mod BP 120.33 ml [ 46.00 - 106.00 ] JT VTI 2.41 cm2 LV EDV Index 82.99 ml/m2 LVOT/AV VTI 0.80 - Dimensionless index (DVI) ESV Mod BP 49.81 ml [ 14.00 - 42.00 ] MV E Peak Alvaro 0.7 m/s [ 0.6 - 1.3 ] EF Mod BP 59 % [ 54 - 74 ] MV A Peak Alvaro 0.5 m/s [ 1.0 - 1.2 ] LV GLS -18.7 % [ -25.0 - -18.0 ] MV E/A 1.4 ratio [ 0.8 - 1.5 ] LA Length 4C 4.62 cm MV Decel Time 211.79 msec [ 104.00 - 258.00 ] LA Length 2C 4.19 cm Med E` Alvaro 10.4 cm/sec [ 8.0 - 25.0 ] LA Volume BP 26.53 ml Lat E` Alvaro 19.4 cm/sec [ 10.0 - 25.0 ] LA Volume Index 18.30 ml/m2 [ 16.00 - 34.00 ] Average E/E` 4.70 RV Base Dimen 2D 3.0 cm [ 2.5 - 4.2 ] RV S` 15.65 cm/sec TAPSE 1.68 cm [ 1.71 - 5.00 ] PV Peak Alvaro 0.7 m/s [ 0.4 - 0.8 ] RA Volume 20.92 ml PV Peak PG 1.96 mmHg RA Volume Index 14.43 ml/m2 IVC Diam 0.50 cm IVC Collapse 66 % AoR Diam 2D 2.70 cm [ 2.70 - 3.70 ] Ao Root Index 1.86 cm/m2 [ 1.00 - 2.00 ] Asc Ao Diam 2D 2.34 cm Asc Ao Index 1.61 cm/m2 Electronically Signed By: Santi Mcelroy MD 03/13/2025 8:00:20 AM CDT Procedure Note Santi Mcelroy MD - 03/13/2025 [facility] Cardiac Diagnostic [place] [address] Transthoracic Echocardiographic Report Patient Name: HAYLEY LEÓN L : 1990 (35y 1m) Gender: F Study Date: 03/12/2025 04:09:57 PM Ht(Inch): 60 Wt(Lb): 110.01 BSA: 1.45 Real Estate Broker: Sofia Campos [facility] Location: [facility] Order Provider:BO FRIED Heart Rate: 68 BMI: 21.48 BP: 115 / 73 Ref Provider: [place] PROCEDURES: Echocardiographic Report: Transthoracic complete echo with strain imagingand contrast, 2D, spectral and tissue Doppler, color flow Doppler, M-mode. Contrast: Contrast Enhancement was Employed: After initial imaging due tosub- optimal quality related to co-morbidity defined by patient's body habitus, due tosuboptimal image quality with inadequate visualization of at least 2 of 16 LV wallsegments in any view after initial imaging. Perflutren contrast was administered using thevolume necessary to obtain adequate images and. 1.9 ml Optison Administered, (1.1ml wasted). Technically difficult study due to: Poor acoustic windows. INDICATIONS: I51.89 Other ill-defined heart diseases. CONCLUSIONS: 1. Moderately dilated left ventricle based on volume index. Normal LV wallthickness. Markedly trabeculated LV with localized echodensity (see below); recommendrepeat cardiac MRI as was previously suggested. Normal left ventricular systolicfunction. The Ejection Fraction (Moon's) is measured at 59 %. The average global longitudinalstrain is normal. 2. Normal right ventricular size. Normal right ventricular systolicfunction. 3. The estimated right ventricular systolic pressure is 25 mmHg. ATTESTATION: I have personally reviewed and interpreted this study without fellow orresident. - DISCLAIMER: The study images and the final report will be retained in the patientchart by the Echo Laboratory for the legally required time period. This chart constitutesthe legal record of any testing performed. FINDINGS: Left Ventricle: Moderately dilated left ventricle based on volume index.Normal LV wall thickness. Normal left ventricular systolic function. The EjectionFraction (Moon's) is measured at 59 %. The average global longitudinal strain is normal. TheLV global strain is: -18.7 %. Markedly trabeculated LV; localized apical echodensity(views 102 & 103) measuring 0.8 X 1.2 cm; no wall motion abnormalities noted. Noenhancement of this area after echo-contrast; differential diagnosis includes myocardial bandof muscle; tumor has to be excluded with cardiac MRI. Right Ventricle: Normal right ventricular size. Normal right ventricularsystolic function. Left Atrium: The left atrium is normal in size. Right Atrium: The right atrium is normal in size. Mitral Valve: Normal mitral valve structure. No mitral regurgitation. Nostenosis present. Aortic Valve: Normal trileaflet aortic valve. No aortic regurgitation. Noaortic valve stenosis. The mean transaortic gradient is 2 mmHg. The aortic valve areaby the continuity equation (using VTI) is 2.41 cm2. Aortic valve dimensionlessindex is 0.80. Tricuspid Valve: Normal Tricuspid valve structure. Mild tricuspidregurgitation. The estimated right ventricular systolic pressure is 25 mmHg. Pulmonic Valve: Normal pulmonic valve structure. No pulmonicregurgitation. No pulmonic valve stenosis present. Pericardium: Normal pericardium without pericardial effusion. Aorta: Normal aortic root size at sinuses of Valsalva. Normal aortic rootsize when indexed. The ascending aorta is normal in size when indexed. IVC: The IVC was <2.1 cm and collapsibility >50%. (est. RA pressure 0-5mmHg). PASP: Normal estimated pulmonary artery systolic pressure. Rhythm: Normal Sinus rhythm was seen during the study. MEASUREMENTS: 2D/MM Value Range DopplerValue Range LVIDd 2D 4.26 cm [ 3.80 - 5.20 ] AV Peak Vel1.0 m/s [ 1.0 - 1.7 ] LVIDs 2D 3.00 cm [ 2.20 - 3.50 ] AV Peak PG4.00 mmHg IVSd 2D 0.62 cm [ 0.60 - 0.90 ] AV Mean PG2 mmHg LVPWd 2D 0.69 cm [ 0.60 - 0.90 ] AV VTI19.3 cm LV Thickness Ratio 0.9 LVOT Peak Vel0.9 m/s [ 0.7 - 1.1 ] LV FS 2D 29.69 % [ 27.00 - 45.00 ] LVOT Peak PG3.24 mmHg LV Mass 2D 82.53 g LVOT Mean PG2 mmHg LV Mass Index 2D 56.92 g/m2 LVOT VTI15.4 cm RWT 0.32 LVOT Diam1.96 cm EDV Mod BP 120.33 ml [ 46.00 - 106.00 ] JT VTI2.41 cm2 LV EDV Index 82.99 ml/m2 LVOT/AV VTI0.80 - Dimensionless index (DVI) ESV Mod BP 49.81 ml [ 14.00 - 42.00 ] MV E Peak Vel0.7 m/s [ 0.6 - 1.3 ] EF Mod BP 59 % [ 54 - 74 ] MV A Peak Vel0.5 m/s [ 1.0 - 1.2 ] LV GLS -18.7 % [ -25.0 - -18.0 ] MV E/A1.4 ratio [ 0.8 - 1.5 ] LA Length 4C 4.62 cm MV Decel Ldnr624.79 msec [ 104.00 - 258.00 ] LA Length 2C 4.19 cm Med E` Vel10.4 cm/sec [ 8.0 - 25.0 ] LA Volume BP 26.53 ml Lat E` Vel19.4 cm/sec [ 10.0 - 25.0 ] LA Volume Index 18.30 ml/m2 [ 16.00 - 34.00 ] Average E/E`4.70 RV Base Dimen 2D 3.0 cm [ 2.5 - 4.2 ] RV S`15.65 cm/sec TAPSE 1.68 cm [ 1.71 - 5.00 ] PV Peak Vel0.7 m/s [ 0.4 - 0.8 ] RA Volume 20.92 ml PV Peak PG1.96 mmHg RA Volume Index14.43 ml/m2 IVC Diam0.50 cm IVC Collapse 66 % AoR Diam 2D 2.70 cm [ 2.70 - 3.70 ] Ao Root Index 1.86 cm/m2 [ 1.00 - 2.00 ] Asc Ao Diam 2D2.34 cm Asc Ao Index1.61 cm/m2 Electronically Signed By: Santi Mcelroy MD 03/13/2025 8:00:20 AM CDT Bo Fried MD CV ECHO PROCEDURES Final Result * BLOOD MISC TO [place] (01/22/2025 12:40 PM CDT) Test name, chem CDTA,CARBOHYD RATE DEFICIENT TRANSFERRIN,A DULT SCRE [place] [facility] Comment:Credited, test not i ndicated. Misc see comment [facility] Comment:Credited, test not i ndicated. Blood 01/22/2025 12:4 0 PM CDT 01/24/2025 2:14 PM CDT us Notinfile Unknown LAB BLOOD ORDERABLES Final Res ult [facility] One [facility] Department [place] [address] [place] [facility] * eGFR (01/22/2025 12:40 PM [...] Unknown LAB BLOOD ORDERABLES Final Res ult [facility] One [facility] Department [place] [address] * Differential, auto (01/22/2025 12:40 PM CDT) Neutrophil abs 2.80 1.50 - 6.50 K/cumm Imm gran abs 0.00 0.00 - 0.10 K/cumm [facility] Lymphocyte abs 2.66 0.80 - 3.30 K/cumm [facility] Monocyte abs 0.21 0.20 - 0.80 K/cumm [facility] Eosinophil abs 0.14 0.00 - 0.50 K/cumm [facility] Basophil abs 0.05 0.00 - 0.10 K/cumm [facility] Neutrophil pct 47.7 % [facility] Comment: Interpretive Data Percent cell count reference ranges are not reported, since discordance with absolute values may lead to misinterpretation of CBC data. Current Interpretive Data was last revised on 2017. Imm gran pct 0.0 % [facility] Comment: Interpretive Data Percent cell count reference ranges are not reported, since discordance with absolute values may lead to misinterpretation of CBC data. Current Interpretive Data was last revised on 2017. Lymphocyte pct 45.4 % [facility] Comment: Interpretive Data Percent cell count reference ranges are not reported, since discordance with absolute values may lead to misinterpretation of CBC data. Current Interpretive Data was last revised on 2017. Monocyte pct 3.6 % [facility] Comment: Interpretive Data Percent cell count reference ranges are not reported, since discordance with absolute values may lead to misinterpretation of CBC data. Current Interpretive Data was last revised on 2017. Eosinophil pct 2.4 % [facility] Comment: Interpretive Data Percent cell count reference ranges are not reported, since discordance with absolute values may lead to misinterpretation of CBC data. Current Interpretive Data was last revised on 2017. Basophil pct 0.9 % [facility] Comment: Interpretive Data Percent cell count reference ranges are not reported, since discordance with absolute values may lead to misinterpretation of CBC data. Current Interpretive Data was last revised on 2017. Blood 01/22/2025 12:4 0 PM CDT 01/22/2025 3:52 PM CDT us Notinfile Unknown LAB BLOOD ORDERABLES Final Res ult Performing Organization Address [facility] Co de Phone Number [facility] Department [place] [address] * (ABNORMAL) Iron profile w/ IBC (01/22/2025 12:40 PM CDT) Pathologist [facility] Iron 60 35 - 145 mcg/dL TIBC 322 250 - 400 mcg/dL [facility] Transferrin saturation 19(L) 20 - 50 % [facility] Blood 01/22/2025 12:4 0 PM CDT 01/22/2025 3:52 PM CDT us Notinfile Unknown LAB BLOOD ORDERABLES Final Res ult Performing Organization Address [facility] Co de Phone Number [facility] [place] [address] * (ABNORMAL) CBC with auto differential (01/22/2025 12:40 PM CDT) Pathologist [facility] WBC 5.86 3.80 - 9.90 K/cumm Hgb 12.9 11.9 - 15.5 g/dL [facility] Hct 39.0 35.6 - 45.5 % [facility] Plt 170 150 - 400 K/cumm [facility] MPV 11.0 9.1 - 12.3 fL [facility] RBC 4.01 3.90 - 5.20 M/cumm [facility] MCV 97.3(H) 81.3 - 96.4 fL [facility] MCH 32.2 27.1 - 33.3 pg [facility] MCHC 33.1 32.3 - 35.7 g/dL [facility] RDW CV 13.4 11.1 - 14.9 % [facility] RDW SD 47.5 35.7 - 48.1 fL [facility] NRBC abs 0.00 0.00 - 0.01 K/cumm [facility] Blood 01/22/2025 12:4 0 PM CDT 01/22/2025 3:52 PM CDT us Notinfile Unknown LAB BLOOD ORDERABLES Final Res ult Performing Organization Address [facility] [place] [address] * Magnesium (01/22/2025 12:40 PM CDT) Pathologist [facility] Magnesium 2.0 1.4 - 2.5 mg/dL Blood 01/22/2025 12:4 0 PM CDT 01/22/2025 3:52 PM CDT us Notinfile Unknown LAB BLOOD ORDERABLES Final Res ult Performing Organization Address [facility] de Phone Number [facility] [place] [address] * Folate (01/22/2025 12:40 PM CDT) Pathologist [facility] Folic acid >20.0 >=5.0 ng/mL Blood 01/22/2025 12:4 0 PM CDT 01/22/2025 3:52 PM CDT us Notinfile Unknown LAB BLOOD ORDERABLES Final Res ult Performing Organization Address [facility] de Phone Number [facility] [place] [address] * Vitamin B12 (01/22/2025 12:40 PM CDT) Vitamin B12 815 230 - 1,250 pg/mL Blood 01/22/2025 12:4 0 PM CDT 01/22/2025 3:52 PM CDT us Notinfile Unknown LAB BLOOD ORDERABLES Final Res ult [facility] One [facility] Department [place] [address] * (ABNORMAL) Comprehensive metabolic panel (01/22/2025 12:40 PM CDT) Sodium 135 135 - 145 mmol/L Potassium, pl 3.4 3.3 - 4.9 mmol/L [facility] Chloride 98 97 - 110 mmol/L [facility] CO2 23 22 - 32 mmol/L [facility] Anion gap 14 2 - 15 mmol/L [facility] BUN 9 6 - 25 mg/dL [facility] Creatinine 0.63 0.60 - 1.10 mg/dL [facility] Glucose 85 70 - 199 mg/dL [facility] Comment: Interpretive Data Fasting glucose >/= [...] 2022. Calcium 10.1 8.5 - 10.3 mg/dL [facility] Bilirubin, total 0.4 0.1 - 1.2 mg/dL [facility] Protein, pl 7.5 6.5 - 8.5 g/dL [facility] Albumin 4.1 3.5 - 5.0 g/dL [facility] Alk phos 139(H) 40 - 130 Units/L [facility] ALT 33 7 - 45 Units/L [facility] AST 58(H) 10 - 45 Units/L [facility] Blood 01/22/2025 12:4 0 PM CDT 01/22/2025 3:52 PM CDT us Notinfile Unknown LAB BLOOD ORDERABLES Final Res ult SHONA [facility] One [facility] Department [place] [address] * TRANSTHORACIC ECHO (TTE) COMPLETE W DOPPLER/CF W CONTRAST (01/15/2025 9:57 AM CDT) EF Mod BP 55 % CONS SCIMAGE Anatomical Region Laterality Modality Ultrasound 01/15/2025 8:50 AM CDT Narrative 01/15/2025 11:28 AM CDT [facility] [place] [address] Transthoracic Echocardiographic Report Patient Name: HAYLEY LEÓN L : 1990 (34y 11m) Gender: F Study Date: 01/15/2025 08:50:13 AM Ht(Inch): 61 Wt(Lb): 102.07 BSA: 1.41 Real Estate Broker: Roza. [facility] Location: [facility] Order Provider: BO FRIED Heart [...] Note Italo Hill MD PhD - 01/15/2025 [facility] Cardiac [place] [address] Transthoracic Echocardiographic Report Patient Name: HAYLEY LEÓN L : 1990 (34y 11m) Gender: F Study Date: 01/15/2025 08:50:13 AM Ht(Inch): 61 Wt(Lb): 102.07 BSA: 1.41 Real Estate Broker: Roza. Watkins [facility] Location: [facility] Order Provider:BO FRIED Heart Rate: [...] LA Length 2C 3.64 cm MV Decel Bwia157.25 msec [ 104.00 - 258.00 ] LA [...] MD CV ECHO PROCEDURES Final Result * Hepatitis panel, acute Blood (11/03/2024 2:31 PM CDT) Pathologist [facility] Hep A IgM Nonreactive Nonreactive Hep B core IgM Nonreactive Nonreactive [facility] Hep C Ab Nonreactive Nonreactive [facility] Comment:Antibodies to HCV no t detected. Does NOT exclude the possibility of recent exposure to HCV. Current interpretive data was last revised on 22 HepBsAg Nonreactive Nonreactive [facility] Blood 11/03/2024 2:31 PM CDT 11/03/2024 2:38 PM CDT Mar George MD LAB MICROBIOLOGY - GENERAL ORDERABLES Final Result [facility] One [facility] Department [place] [address] * THINPREP TIS PAP REFLEX HPV mRNA E6/E7, CHLAMYDIA/N.GONORRHOEAE (09/14/2016 12:56 PM WAREHOUSE SHIPPER) Pathologist [facility] CLINICAL INFORMATION [facility] HISTORICAL RESULTS Comment: LMP: [facility] HISTORICAL RESULTS PREV. PAP: [facility] HISTORICAL RESULTS Comment:2011 PREV. BX: [facility] HISTOR[facility] RESULTS Comment:UNKNOWN SOURCE: [facility] HISTORICAL RESULTS Comment:Cervix, Endocervix STATEMENT OF ADEQUACY: [facility] HISTORICAL RESULTS Comment:Satisfactory for savana luation. Endocervical/transformation zone component present. INTERPRETATION/RES ULT: [facility] HISTORICAL RESULTS Comment:Negative for intraep ithelial lesion or malignancy. COMMENT: [facility] HISTORICAL RESULTS Comment:This Pap test has be en evaluated with computer assisted technology. COMBINATION MACHINE TOOL SETTER[facility] Comment:YQ, CT(ASCP) CT scre ening location: [place] [address] [place] [address] C. trachomatis RNA NOT DETECTED NOT DETECTED [facility] HISTORICAL RESULTS N. gonorrhoeae RNA NOT DETECTED NOT DETECTED [facility] HISTORICAL RESULTS COMMENT [facility] HISTORICAL RESULTS Comment: This test was performed using the APTIMA COMBO2 Assay ([employer] The analytical performance characteristics of this assay, when used to test SurePath specimens have been determined by [employer]. 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
--- OUTSIDE RECORDS SUMMARY | 2025-04-16 12:24 | XMS_ITS | Encounter Summary ---
Author Organization [facility] Facility Care Team Providers Care Physical Geographer Name Role Phone Christian Merritt MD Primary Care Provider [phone] Mo Mitchell MD Primary Care Provider [phone] Neeta Ott RN Unavailable [phone] Encounter Details Date Type Department Care Team (Latest Contact Info) Description 01/05/2017 Orders Only [facility] CLINCONV ProviderSerge MD [address] [place] [address] Social History Tobacco Use Types Packs/Day Years Used Date Smoking Tobacco: Never Assessed Comments Unknown Sex and Gender Information Value Date Recorded Sex Assigned at Not on file Legal 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
--- OUTSIDE RECORDS SUMMARY | 2025-04-16 12:24 | XMS_ITS | Patient Health Record ---
Author Organization [facility] Address [address] [place] [address] Care Team Providers Care Body And Fender Worker Name Role Phone Mo Mitchell Primary Care Provider [phone] Ileana Duncan Unavailable Allergies Allergen (clinical drug ingredient) Drug/Non Drug Allergy documented on EMR Reaction Allergy Type Onset Date Status Latex Latex Unknown Allergy Active Results Component Value Reference Range Notes CMP 14 Comprehensive Metabol ic Panel* Reviewed date:03/18/2025 08:24:07 AM Interpretation: Performing Lab: Notes/Report: Magnesium, Serum* Reviewed date:03/26/2025 10:04:50 AM Interpretation: Performing Lab: Notes/Report: CBC With Differential/Platel et* Reviewed date:03/18/2025 08:23:50 AM Interpretation: Performing Lab: Notes/Report: 12 Panel Urine Drug Screen Reviewed date:12/05/2024 02:23:57 PM Interpretation: Performing Lab: Notes/Report: THC POS JONI neg MOP (OPI) neg AMP neg MET neg BAR neg BZO neg MDMA neg MTD neg OXY POS PCP neg BUP neg Reason For Referral No Information Medications Medication SIG (Take, Route, Frequency, Duration) Notes Start Date End Date Status Ergocalciferol 1.25 MG (87795 UT) 1 capsule Orally Active Nadolol 20 MG 1 tablet Orally Once a day; Duration: 30 days Active B-Complex-C - as directed Orally Active Folic Acid 1 MG 1 tablet Orally Once a day; Duration: 30 days Active Famotidine 20 MG 1 tablet Orally twic e a day; Duration: 30 days Active Ferrous Sulfate 325 (65 Fe) MG 1 tablet Orally daily; Duration: 30 days Active Magnesium Oxide 420 MG 1 tablet with crystal d Orally Once a day; Duration: 30 days Active Potassium Chloride ER 10 MEQ 1 tablet with food Orally daily; Duration: 30 days 03/07/2025 Active Methocarbamol 750 MG 1 tablet Orally 3 times a day; Duration: 30 days As needed muscle pain Active busPIRone HCl 15 MG 1 tablet Orally Twic e a day; Duration: 30 days Active Acetaminophen 500 MG two tablets as need ed for pain (maximum of 6 tablets in 24 hours) Orally every 6 hrs 10/01/2024 Active Multivitamin - 1 tablet Orally Once a day Active Simethicone 80 MG 1 tablet after meals and at bedtime as needed Orally Four times a day Active Netupitant-Palonosetron 300-0.5 MG 1 capsule Orally daiy; Duration: 14 days As needed nausea 03/07/2025 Active Megestrol Acetate 20 MG 1 tablet Orally Twice a day; Duration: 30 days Active Xarelto 20 MG 1 tablet with food Orally Once a day Active Naloxone HCl 4 MG/10ML as directed Injection Active Loperamide HCl 1 MG/7.5ML 15 mL as neede d Orally Four times a day Active Nicotine 14 MG/24HR 1 patch to skin Transdermal Once a day Not-Takin g Cyanocobalamin 1000 MCG 1 capsule Orally daily; [...] 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 Stress is when someone feels tense, nervous, anxious, or can\t sleep at night because their mind is troubled Somewhat In the past year have you sp ent more than 2 nights in a row in a fci, long-term, skilled nursing center, or juvenile correctional facility? No Are [...] Status W/U Status Risk Notes Problem Hypomagnesemia (866211355) Hypomagnesemia (E83.42) Active confirmed Problem Tobacco user (931108275) Nicotine dependence, unspecified, uncomplicated (F17.200) Active confirmed Problem Eating disorder (94162800) Eating disorder, unspecified (F50.9) Active confirmed Problem Prolonged QT interval (380587799) Prolonged QT interval (I45.81) Active confirmed Problem Peripheral neuropathy (468102483) Peripheral neuropathy (G62.9) Active confirmed Problem Chronic pain (23005363) Chronic pain (G89.29) Active confirmed Problem Unsteady gait (85237762) Unsteady gait (R26.81) Active confirmed Problem Deficiency of macronutrients (disorder) (927460321) Protein-calorie malnutrition, unspecified severity (E46) Active confirmed Problem Alcohol related disorder (F10.99) Active confirmed Vital Signs Heart Rate 99 /min 03/07/2025 Respiratory Rate 16 /min 03/07/2025 Blood pressure diastolic 80 mm Hg 03/07/2025 Oximetry 98 % 03/07/2025 Height 61 in 03/07/2025 Blood pressure systolic 110 mm Hg 03/07/2025 Weight 106.4 lbs 03/07/2025 BMI 20.1 kg/m2 03/07/2025 Encounters Encounter Location Date Provider Diagnosis [address] [place] [address] 10/01/2024 Mo Mitchell Protein-calorie malnutrition, unspecified severity E46 ; Peripheral neuropathy G62.9 ; Eating disorder, unspecified F50.9 and Nicotine dependence, unspecified, uncomplicated F17.[address] [place] [address] 12/05/2024 Mo Mitchell Torsades de pointes I47.21 ; Prolonged QT interval I45.81 ; Chronic pain G89.29 ; Alcohol related disorder F10.99 ; Peripheral neuropathy G62.9 ; Protein-calorie malnutrition, unspecified severity E46 ; Unsteady gait R26.81 and Opioid use F11.[address] [place] [address] 03/07/2025 Mo Mitchell Hypokalemia E87.6 ; Hypomagnesemia E83.42 ; Prolonged QT interval I45.81 ; Protein-calorie malnutrition, unspecified severity E46 ; Peripheral neuropathy G62.9 ; Alcohol related disorder F10.99 ; Nausea R11.0 and Diarrhea R19.[address] [place] [address] 03/07/2025 Ileana Duncan [facility] [address] [facility] [place] [address] 11/23/2024 Mo Mitchell [facility] [address] [place] [address] 12/03/2024 Mo Mitchell [facility] [address] [facility] [address] 12/03/2024 Mo Mitchell [address] [place] [address] 12/05/2024 Mo Mitchell [address] [place] [address] 12/19/2024 Mo Mitchell [facility] [address] [place] [address] 12/28/2024 Mo Mitchell [facility] [address] [place] [address] 01/02/2025 Mo Mitchell Hypokalemia E87.6 ; Alcohol related disorder F10.99 and Fatigue R53.83 [facility] [address] [place] [address] 01/08/2025 Mo Mitchell [facility] [address] [place] [address] 01/10/2025 Mo Mitchell [facility] [address] [facility] [address] 01/16/2025 Mo Mitchell [facility] [address] [facility] [place] [address] 01/18/2025 Mo Mitchell [facility] [address] [place] [address] 02/01/2025 Mo Mitchell [facility] [address] [facility] [address] 02/13/2025 Mo Mitchell [facility] [address] [place] [address] 02/22/2025 Mo Mitchell [address] [place] [address] 04/20/2024 Mo Mitchell [address] [place] [address] 06/13/2024 Mo Mitchell [address] [place] [address] 06/14/2024 Mo Mitchell Eating disorder, unspecified F50.[address] [place] [address] 06/18/2024 Mo Mitchell [address] [place] [address] 06/27/2024 Mo Mitchell [address] [address] 07/27/2024 Mo Mitchell [address] [place] [address] 07/30/2024 Mojey Mitchell [address] [address] 09/25/2024 Mojey Mitchell [address] [address] 10/15/2024 Mo Mitchell Eating disorder, unspecified F50.9 and Peripheral neuropathy G62.[address] [place] [address] 01/23/2025 Mo Mitchell [address] [address] 02/28/2025 Om Paula Chronic pain G89.[address] [place] [address] 03/10/2025 Mo Mitchell [address] [address] 03/14/2025 Mo Mitchell [address] [place] [address] 03/20/2025 Mo Mitchell Eating disorder, unspecified F50.[address] [place] [address] 03/22/2025 Mo Mitchell [address] [address] 03/30/2025 Mo Mitchell Peripheral neuropath y G62.[address] [place] [address] 04/07/2025 Mo Mitchell Eating disorder, unspecified F50.9 and Hypokalemia E87.[address] [place] [address] 04/13/2025 Mo Mitchell Hypokalemia E87.6 an d Protein-calorie malnutrition, unspecified severity E46 Assessments Encounter Date Diagnosis (ICD Code) Assessment [...] - E83.42) 03/07/2025 Hypokalemia (ICD-10 - E87.6) 10/15/2024 Eating disorder, unspecified (ICD-10 - F50.9) 12/05/2024 Prolonged QT interval (ICD-10 - I45.81) F/U WITH CARDIOLOGY. 03/20/2025 Eating disorder, unspecified (ICD-10 - F50.9) 03/30/2025 Peripheral neuropathy (ICD-10 - G62.9) 04/07/2025 Eating disorder, unspecified (ICD-10 - F50.9) 04/13/2025 Hypokalemia (ICD-10 - E87.6) 06/14/2024 Eating disorder, unspecified (ICD-10 - F50.9) 04/13/2025 Protein-calorie malnutrition, unspecified severity (ICD-10 - E46) 04/07/2025 Hypokalemia (ICD-10 - E87.6) 03/07/2025 Prolonged QT interval (ICD-10 - I45.81) Avoid QT prolonging drugs 12/05/2024 Chronic pain (ICD-10 - G89.29) OPTIONS ARE LIMITED TO OPIOIDS AT THIS TIME. SHE DOES NOT WANT TO TRY NEW NON-OPIOID PAIN MED YET. 10/15/2024 Peripheral neuropathy (ICD-10 - G62.9) 10/01/2024 Eating disorder, unspecified (ICD-10 - F50.9) 01/02/2025 Fatigue (ICD-10 - R53.83) 03/07/2025 Protein-calorie malnutrition, unspecified severity (ICD-10 - E46) Clinically improving 12/05/2024 Alcohol related disorder (ICD-10 - F10.99) UNDERSTANDS THAT SHE MUST ABSTAIN FROM DRINKING. 10/01/2024 Nicotine dependence, unspecified, uncomplicated (ICD-10 - F17.200) 03/07/2025 Peripheral neuropathy (ICD-10 - G62.9) 12/05/2024 [...] (ICD-10 - R19.7) Etiology unclear 03/07/2025 Other Senior Accounting Manager met with Ester León to assist in working on building skills to help the consumer gain confidence in their recovery journey. The customs entry writer practiced with Ester León implementing problem solving skills to help facilitate exploration of options and understanding of life triggers that impact substance use (explain options and life triggers). The customs entry writer encouraged and engaged in critical thinking of how to use natural supports and coping skills to help manage symptoms in the moment. Senior Accounting Manager also worked on modeling and practicing with the consumer these coping skills to reduce stress and anxiety surrounding current/past substance use along with the benefits of working a 12 step program, getting a sponsor, and building a solid support system and improving coping skills. Plan Of Treatment No Information Insurance Providers Payer Name Payer Address Payer Phone Subscriber Number Group Number Insured Name Patient Relationship to Insured Coverage Start Date Coverage End Date [employer] [address] [place] [address] [id number] Ester León Self - patient is the insured 4 Medical (General) History Surgical History Surgery Date(Month/Year) peg tube 10/2023 child 2017 Hospitalization History Reason Date(Month/Year) [facility] [place] 1 night and 4 nights 02/2025 [facility] Cardiac arrest 10/2024 [facility]. infection 07/2024 [facility] 02/04/17
--- OUTSIDE RECORDS SUMMARY | 2025-04-16 12:24 | XMS_ITS | Encounter Summary ---
Author Organization [facility] Facility Care Team Providers Care Papier Mache Molder Name Role Phone Christian Merritt MD Primary Care Provider [phone] Mo Mitchell MD Primary Care Provider [phone] Neeta Ott RN Unavailable [phone] Encounter Details Date Type Department Care Team (Latest Contact Info) Description 12/06/2016 Orders Only [facility] CLINCONV ProviderSerge MD [address] [place] [address] Social History Tobacco Use Types Packs/Day Years Used Date Smoking Tobacco: Never Assessed Comments Unknown Sex and Gender Information Value Date Recorded Sex Assigned at Not on file 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
--- OUTSIDE RECORDS SUMMARY | 2025-04-16 12:24 | XMS_ITS | Clinical Summary ---
Author Organization [facility] dipika [facility] Address [address] [place] [address] [place] [address] Care Team Providers Care Glue Bone Drier Name Role Phone Unavailable Primary Care Provider [...]
--- NOTE | 2025-04-16 14:30 | ED.GENADULT ---
HPI - General Adult General Chief complaint: Nausea/Vomiting/Diarrhea <Ariane Haines November, PROJECT MANAGEMENT CONSULTANT - Last Filed: 04/17/25 19:35> Stated complaint: N/V/D <Ariane Haines November, PROJECT MANAGEMENT CONSULTANT - Last Filed: 04/17/25 19:35> Time Seen by Provider: 04/16/25 14:30 <Ariane Haines November, PROJECT MANAGEMENT CONSULTANT - Last Filed: 04/17/25 19:35> Focused HPI: Ester León is a 35 y/o female with PMhx of Mitral valve prolapse, Neuropathy, - She had a Cardiac arrest 5 months ago and was found to have a blood clot in her hear and currently on Xarelto. Here today with Nausea/vomiting/Diarrhea has not been able to keep anything 2 days ago. She also states she is having some chest pain that started on and off all day today. She also reports abdominal pain over the past few days and SOB GENERAL: appears frail HEAD: Normocephalic, atraumatic. CHEST: Clear to auscultation. ?No respiratory distress. HEART: Regular rate and rhythm.? NEURO: ?Alert and oriented x3. Patient screened in triage and initial orders placed.? ?Additional care and disposition to be based upon?diagnostic testing and treatment. <Ariane Haines November, PROJECT MANAGEMENT CONSULTANT - Last Filed: 04/17/25 19:35> Focused HPI: Ester León is a 35 y/o female with PMhx of Mitral valve prolapse, Neuropathy, - She had a Cardiac arrest 5 months ago and was found to have a blood clot in her heart and currently on Xarelto. Here today with Nausea/vomiting/Diarrhea has not been able to keep anything 2 days ago. She also states she is having some chest pain that started on and off all day today. She also reports abdominal pain over the past few days and SOB GENERAL: appears frail HEAD: Normocephalic, atraumatic. CHEST: Clear to auscultation. ?No respiratory distress. HEART: Regular rate and rhythm.? NEURO: ?Alert and oriented x3. Patient screened in triage and initial orders placed.? ?Additional care and disposition to be based upon?diagnostic testing and treatment. <Alexandru Burgos MD - Last Filed: 04/16/25 21:43> History of Present Illness HPI narrative: Agree with HPI <Aelxandru Burgos MD - Last Filed: 04/16/25 21:43> Related Data Home medications: Home Medications ?Medication ?Instructions ?Recorded ?Confirmed ?Last Taken ?Type ferrous sulfate 325 mg (65 mg 325 mg PO BID 03/28/24 04/16/25 04/13/25 08:00 History iron) tablet,delayed release 325 mg folic acid 1 mg tablet 1 mg feeding tube DAILY 03/28/24 04/16/25 04/13/25 08:00 History 1 mg megestrol 20 mg tablet 20 mg feeding tube BID 03/28/24 04/16/25 04/13/25 20:00 History 20 mg multivitamin with folic acid 400 1 tablet PO QAM 03/28/24 04/16/25 02/28/25 History mcg tablet (Thera) thiamine HCl (vitamin B1) 100 mg 100 mg feeding tube DAILY 03/28/24 04/16/25 04/13/25 20:00 History tablet 100 mg vitamin B complex (Vitamins B 1 cap feeding tube QAM 03/28/24 04/16/25 04/13/25 08:00 History Complex capsule) 1 cap lactose-reduced food with fiber See Rx Instructions .Route .COMPLEX 08/07/24 04/16/25 01/26/25 History 0.06 gram-1.5 kcal/mL oral liquid (Jevity 1.5 Chriss) buspirone 15 mg tablet 15 mg feeding tube TID 01/08/25 04/16/25 04/13/25 10:00 History 15 mg cyanocobalamin (vitamin B-12) 1,000 mcg feeding tube MONTHLY 01/08/25 04/16/25 04/13/25 08:00 History 1,000 mcg tablet 1,000 mcg nicotine 14 mg/24 hr daily 1 patch transdermal Q24H 01/08/25 04/16/25 02/25/25 History transdermal patch oxycodone 5 mg tablet 5 mg feeding tube Q8H PRN pain 01/08/25 04/16/25 03/01/25 History ergocalciferol (vitamin D2) 1,250 1,250 mcg feeding tube WEEKLY 02/13/25 04/16/25 02/25/25 History mcg (50,000 unit) capsule famotidine 20 mg tablet 20 mg PO HS 02/13/25 04/16/25 04/13/25 20:00 History 20 mg magnesium oxide 400 mg (241.3 mg 420 mg feeding tube DAILY 02/13/25 04/16/25 04/13/25 08:00 History magnesium) tablet 400 mg methocarbamol 750 mg tablet 750 mg feeding tube .q4hr 02/13/25 04/16/25 04/13/25 20:00 History 750 mg nadolol 20 mg tablet 20 mg feeding tube DAILY 02/13/25 04/16/25 04/13/25 08:00 History 20 mg simethicone 80 mg chewable tablet 80 mg feeding tube QID PRN 02/13/25 04/16/25 Unknown History abdominal distention <Ariane Haines November, PROJECT MANAGEMENT CONSULTANT - Last Filed: 04/17/25 19:35> Allergies/adverse reactions: Allergies Allergy/AdvReac Type Severity Reaction Status Date / Time latex Allergy Rash Verified 04/17/25 00:55 melatonin AdvReac Mild chest Verified 04/17/25 00:55 heaviness <Ariane Haines November, PROJECT MANAGEMENT CONSULTANT - Last Filed: 04/17/25 19:35> Review of Systems Review of Systems: Gen.: As per HPI Eyes: Denies eye pain or visual change ENT: Denies congestion Respiratory: Denies shortness of breath or cough CV: Denies chest pain or palpitations GI: As per HPI denies burning, urgency, frequency or hematuria Musculoskeletal: Denies back pain or muscle pain Neuro: Denies numbness, tingling, weakness or focal weakness Skin: Denies rash Except as documented, all other systems reviewed and negative <Alexandru Burgos MD - Last Filed: 04/16/25 21:43> [facility] Past Medical History Medical History: Medical History Cardiac arrest with ventricular fibrillation October 2024 Adrenal insufficiency Depression with anxiety Avoidant/restrictive food intake disorder Cannabis abuse Elevated LFTs Mitral valve prolapse <Ariane Haines November, PROJECT MANAGEMENT CONSULTANT - Last Filed: 04/17/25 19:35> Surgical History Surgical History: Surgical History History of percutaneous endoscopic gastrostomy <Ariane Jacob, PROJECT MANAGEMENT CONSULTANT - Last Filed: 04/17/25 19:35> Family History Family History: Family History Mother Heart attack Mitral valve prolapse Grandparent Cancer Grandparent Mitral valve prolapse <Ariane Jacob, PROJECT MANAGEMENT CONSULTANT - Last Filed: 04/17/25 19:35> Social History Social History: Social History Social History: Surrogate medical decision maker: Jorge Luis Centeno, significant other. Code status: Full code. Smoking packs per day: 0.5 Smoking cigarettes per day: 10.0 Years smoked: 20 Smoking pack-years: 10.00 Smoking status: Current every day smoker Tobacco type: cigarettes Alcohol intake: current Drinks per week: 4 Alcohol use details: States she drinks 1 pint a week Substance use: current Substance use type: marijuana Other substance usage details: weekly Last use: 01/22/2025 Do You Feel Safe in your Home?: Yes Lack of Transportation: No Lack of Food: Never True Current Housing: I Have Housing Concerned About Future Housing: No Difficulty Paying Gas/Electric Bills: No Difficulty Paying for Meds: YES Currently Unemployed: No Education: High School Diploma/GED Difficulty w/ Childcare or Family Care: No Living arrangements: with family Additional living arrangements comments: with 7 year old son and fianc? Occupation/Education: unemployed Spiritual care concerns: No Agree to blood products: Yes <Ariane Jacob, PROJECT MANAGEMENT CONSULTANT - Last Filed: 04/17/25 19:35> Exam Narrative: APPEARANCE: Frail appearing, resting in bed EYES: EOMI HEENT: Normocephalic, atraumatic, mucous membranes mildly dry RESPIRATORY: No respiratory distress Clear to auscultation bilaterally with no rhonchi wheezing or rales. CARDIOVASCULAR: Regular rate and rhythm without murmurs rubs or gallops. ABDOMINAL: Soft, are mild lower abdominal tenderness to palpation, nondistended, no rebound or guarding MUSCULOSKELETAl: Moves all extremities. No clubbing, cyanosis or edema. NEURO: Awake and alert. Following commands, speech normal, no focal deficits SKIN:: Warm, dry. No rashes lesions or abrasions PSYCHIATRIC: Normal affect/mood, <Alexandru Burgos MD - Last Filed: 04/16/25 21:43> Course Vital Signs Vital signs: Vital Signs Temperature 37.1 C 04/16/25 11:58 Pulse Rate 105 H 04/16/25 11:58 Respiratory Rate 16 04/16/25 11:58 Blood Pressure 136/80 04/16/25 11:58 Pulse Oximetry 99 04/16/25 11:58 Temperature 36.8 C 04/17/25 16:00 Pulse Rate 72 04/17/25 18:00 Respiratory Rate 16 04/17/25 16:00 Blood Pressure 102/55 L 04/17/25 16:00 Pulse Oximetry 100 04/17/25 16:00 Oxygen Delivery Room Air 04/17/25 15:45 <Ariane Jacob, PROJECT MANAGEMENT CONSULTANT - Last Filed: 04/17/25 19:35> Vital Signs Temperature 37.1 C 04/16/25 11:58 Pulse Rate 105 H 04/16/25 11:58 Respiratory Rate 16 04/16/25 11:58 Blood Pressure 136/80 04/16/25 11:58 Pulse Oximetry 99 04/16/25 11:58 Temperature 36.8 C 04/17/25 16:00 Pulse Rate 72 04/17/25 18:00 Respiratory Rate 16 04/17/25 16:00 Blood Pressure 102/55 L 04/17/25 16:00 Pulse Oximetry 100 04/17/25 16:00 Oxygen Delivery Room Air 04/17/25 15:45 <Alexandru Burgos MD - Last Filed: 04/16/25 21:43> Medical Decision Making MDM Narrative Medical decision making narrative: 35-year-old female who presents to the ED for nausea vomiting, diarrhea. On initial evaluation, patient was frail-appearing, in no acute distress, afebrile, hemodynamically stable. She had mild lower abdominal tenderness to palpation. Cbc showed no significant abnormalities. CMP showed a mild hyponatremia. Magnesium at 1.2. LFTs mildly elevated. UA consistent with contamination. CT abdomen/pelvis showed severe enterocolitis. Patient was given Compazine and Decadron without significant improvement of her nausea. She was not able to tolerate the water bedside. Given her electrolyte abnormalities in the setting of a recent cardiac arrest due to torsades and her intractable nausea/vomiting, patient will require admission for further evaluation and management. Discussed case with hospitalist who will admit the patient. CRITICAL CARE Indication: Electrolyte derangements, history of torsades Time type: intermittent I provided a total of 35 minutes of critical care excluding separately billable procedures. This includes time w/ EMS, initial bedside evaluation, reviewing old records, review of testing done while under my care, discussion w/ the family, nurses, health and wellness sales consultant and guiding the patient?s care while in the emergency department. <Alexandru Burgos MD - Last Filed: 04/16/25 21:43> Differential Diagnosis Differential Diagnosis: Gastroenteritis, enterocolitis, electrolyte abnormality, alcohol withdrawal, cyclic vomiting syndrome <Alexandru Burgos MD - Last Filed: 04/16/25 21:43> Medical Records Medical records reviewed: Yes I reviewed the external patient's medical records. <Alexandru Burgos MD - Last Filed: 04/16/25 21:43> Vital Signs Vital Signs: Vital Signs Temperature 37.1 C 04/16/25 11:58 Pulse Rate 105 H 04/16/25 11:58 Respiratory Rate 16 04/16/25 11:58 Blood Pressure 136/80 04/16/25 11:58 Pulse Oximetry 99 04/16/25 11:58 Temperature 36.8 C 04/17/25 16:00 Pulse Rate 72 04/17/25 18:00 Respiratory Rate 16 04/17/25 16:00 Blood Pressure 102/55 L 04/17/25 16:00 Pulse Oximetry 100 04/17/25 16:00 Oxygen Delivery Room Air 04/17/25 15:45 <Ariane Jacob, CONNIE - Last Filed: 04/17/25 19:35> Vital Signs Temperature 37.1 C 04/16/25 11:58 Pulse Rate 105 H 04/16/25 11:58 Respiratory Rate 16 04/16/25 11:58 Blood Pressure 136/80 04/16/25 11:58 Pulse Oximetry 99 04/16/25 11:58 Temperature 36.8 C 04/17/25 16:00 Pulse Rate 72 04/17/25 18:00 Respiratory Rate 16 04/17/25 16:00 Blood Pressure 102/55 L 04/17/25 16:00 Pulse Oximetry 100 04/17/25 16:00 Oxygen Delivery Room Air 04/17/25 15:45 <Alexandru Burgos MD - Last Filed: 04/16/25 21:43> Lab Data Lab results reviewed: Yes I reviewed the patient's lab results. <Alexandru Burgos MD - Last Filed: 04/16/25 21:43> Result diagrams: 04/17/25 02:55 04/17/25 02:55 <Ariane Jacob APRN - Last Filed: 04/17/25 19:35> Labs: Lab Results 04/16/25 04/16/25 04/16/25 Range/Units 15:13 15:13 15:13 WBC 7.7 (4.5-10.0) K/mm3 RBC 3.86 L (4.2-5.4) M/mm3 Hgb 14.0 (12.0-15.0) g/dL Hct 41.1 (37.0-47.0) % MCV 106.5 H (80-100) fl MCH 36.3 H (26-34) pg MCHC 34.1 (32-36) g/dl RDW 13.8 (11.5-14.5) % Plt Count 221 (150-375) k/mm3 MPV 9.7 (7.4-10.4) fl Immature Gran % (Auto) 0.1 (0-0.5) % Neut % (Auto) 71.0 (45.5-73.1) % Lymph % (Auto) 17.7 L (18.3-44.2) % [place] % (Auto) 10.4 H (2.6-8.5) % Eos % (Auto) 0.0 (0-4.4) % Baso % (Auto) 0.8 (0.2-1.2) % Lymph # (Auto) 1.36 (0.9-3.2) K/mm3 [place] # (Auto) 0.8 H (0.1-0.6) K/mm3 Eos # (Auto) 0.0 (0-0.3) K/mm3 Baso # (Auto) 0.1 (0.0-0.1) K/mm3 Abs Immat Gran (auto) 0.01 (0.00-0.031) K/mm3 Absolute Neuts (auto) 5.5 (1.3-6.7) K/mm3 Absolute Nucleated RBC 0.000 (0.0-0.012) K/mm3 Band Neutrophils % Not Reportable Nucleated RBC % 0.0 (0.0-0.2) % Platelet Estimate Adequate (Adequate) Macrocytosis 1+ (NORMAL) Schistocytes None seen PT 13.1 (11.1-14.7) Seconds INR 1.0 APTT 24.3 (22.3-36.8) Seconds Sodium 134 L (137-145) mmol/L Potassium 3.7 (3.4-5.0) mmol/L Chloride 99 (98-107) mmol/L Carbon Dioxide 23 (22-30) mmol/L Anion Gap 12 (4-12) mmol/L BUN 11 (7-17) mg/dL Creatinine 0.60 L (0.7-1.0) mg/dL Estim Creat Clear Calc 85 ml/min Estimated GFR > 60 (59 - ) Glucose 116 H (65-110) mg/dL Calcium 9.1 (8.4-10.2) mg/dL Phosphorus 3.2 Cancelled (2.5-4.5) mg/dL Magnesium 1.2 L Cancelled (1.6-2.3) mg/dL Total Bilirubin 1.2 (0.2-1.3) mg/dL AST 102 H (14-36) U/L ALT 51 H (6-35) U/L Alkaline Phosphatase 155 H (38-126) U/L Troponin I < 0.012 (0.000-0.034) ng/mL Total Protein 7.2 (6.3-8.2) g/dL Albumin 4.2 (3.5-5.1) g/dL Lipase 70 (23-300) U/L Serum HCG, Qual Negative Urine Color (Yellow) Urine Appearance (Clear) Urine pH (5.0-9.0) Ur Specific [place] (1.001-1.035) Urine Protein (Negative) mg/dL Urine Glucose (UA) (Negative) mg/dL Urine Ketones (Negative) mg/dL Ur Blood (Man) (Negative) Urine Nitrate (Negative) Urine Bilirubin (Negative) Urine Urobilinogen (<2.0) mg/dL Leukocyte Esterase Rfl (Negative) BECKY/UL Urine RBC (0-2) /hpf Urine WBC (0-3) /hpf Ur Squamous Epith Cells (Few) /hpf Urine Bacteria /hpf Urine Casts Urine Opiates Screen (Negative) Urine Methadone Screen (Negative) Ur Barbiturates Screen (Negative) Ur Phencyclidine Scrn (Negative) Ur Amphetamine Screen (Negative) U Benzodiazepines Scrn (Negative) Urine Cocaine Screen (Negative) U Cannabinoids Screen (Negative) Ethyl Alcohol < 10 (<10) mg/dL 04/16/25 Range/Units 16:02 WBC (4.5-10.0) K/mm3 RBC (4.2-5.4) M/mm3 Hgb (12.0-15.0) g/dL Hct (37.0-47.0) % MCV (80-100) fl MCH (26-34) pg MCHC (32-36) g/dl RDW (11.5-14.5) % Plt Count (150-375) k/mm3 MPV (7.4-10.4) fl Immature Gran % (Auto) (0-0.5) % Neut % (Auto) (45.5-73.1) % Lymph % (Auto) (18.3-44.2) % [place] % (Auto) (2.6-8.5) % Eos % (Auto) (0-4.4) % Baso % (Auto) (0.2-1.2) % Lymph # (Auto) (0.9-3.2) K/mm3 [place] # (Auto) (0.1-0.6) K/mm3 Eos # (Auto) (0-0.3) K/mm3 Baso # (Auto) (0.0-0.1) K/mm3 Abs Immat Gran (auto) (0.00-0.031) K/mm3 Absolute Neuts (auto) (1.3-6.7) K/mm3 Absolute Nucleated RBC (0.0-0.012) K/mm3 Band Neutrophils % Nucleated RBC % (0.0-0.2) % Platelet Estimate (Adequate) Macrocytosis (NORMAL) Schistocytes PT (11.1-14.7) Seconds INR APTT (22.3-36.8) Seconds Sodium (137-145) mmol/L Potassium (3.4-5.0) mmol/L Chloride (98-107) mmol/L Carbon Dioxide (22-30) mmol/L Anion Gap (4-12) mmol/L BUN (7-17) mg/dL Creatinine (0.7-1.0) mg/dL Estim Creat Clear Calc ml/min Estimated GFR (59 - ) Glucose (65-110) mg/dL Calcium (8.4-10.2) mg/dL Phosphorus (2.5-4.5) mg/dL Magnesium (1.6-2.3) mg/dL Total Bilirubin (0.2-1.3) mg/dL AST (14-36) U/L ALT (6-35) U/L Alkaline Phosphatase (38-126) U/L Troponin I (0.000-0.034) ng/mL Total Protein (6.3-8.2) g/dL Albumin (3.5-5.1) g/dL Lipase (23-300) U/L Serum HCG, Qual Urine Color Dark yellow (Yellow) Urine Appearance Turbid H (Clear) Urine pH 5.5 (5.0-9.0) Ur Specific [place] 1.027 (1.001-1.035) Urine Protein 2+ H (Negative) mg/dL Urine Glucose (UA) Negative (Negative) mg/dL Urine Ketones Trace H (Negative) mg/dL Ur Blood (Man) 2+ H (Negative) Urine Nitrate Negative (Negative) Urine Bilirubin 1+ H (Negative) Urine Urobilinogen 1.0 (<2.0) mg/dL Leukocyte Esterase Rfl Trace H (Negative) BECKY/UL Urine RBC 3-5 H (0-2) /hpf Urine WBC 21-50 H (0-3) /hpf Ur Squamous Epith Cells Occasional (Few) /hpf Urine Bacteria None seen /hpf Urine Casts 3-5 Urine Opiates Screen Positive A (Negative) Urine Methadone Screen Negative (Negative) Ur Barbiturates Screen Negative (Negative) Ur Phencyclidine Scrn Negative (Negative) Ur Amphetamine Screen Negative (Negative) U Benzodiazepines Scrn Negative (Negative) Urine Cocaine Screen Negative (Negative) U Cannabinoids Screen Negative (Negative) Ethyl Alcohol (<10) mg/dL <Ariane Jacob, PROJECT MANAGEMENT CONSULTANT - Last Filed: 04/17/25 19:35> Lab Results 04/16/25 04/16/25 04/16/25 Range/Units 15:13 15:13 15:13 WBC 7.7 (4.5-10.0) K/mm3 RBC 3.86 L (4.2-5.4) M/mm3 Hgb 14.0 (12.0-15.0) g/dL Hct 41.1 (37.0-47.0) % MCV 106.5 H (80-100) fl MCH 36.3 H (26-34) pg MCHC 34.1 (32-36) g/dl RDW 13.8 (11.5-14.5) % Plt Count 221 (150-375) k/mm3 MPV 9.7 (7.4-10.4) fl Immature Gran % (Auto) 0.1 (0-0.5) % Neut % (Auto) 71.0 (45.5-73.1) % Lymph % (Auto) 17.7 L (18.3-44.2) % [place] % (Auto) 10.4 H (2.6-8.5) % Eos % (Auto) 0.0 (0-4.4) % Baso % (Auto) 0.8 (0.2-1.2) % Lymph # (Auto) 1.36 (0.9-3.2) K/mm3 [place] # (Auto) 0.8 H (0.1-0.6) K/mm3 Eos # (Auto) 0.0 (0-0.3) K/mm3 Baso # (Auto) 0.1 (0.0-0.1) K/mm3 Abs Immat Gran (auto) 0.01 (0.00-0.031) K/mm3 Absolute Neuts (auto) 5.5 (1.3-6.7) K/mm3 Absolute Nucleated RBC 0.000 (0.0-0.012) K/mm3 Band Neutrophils % Not Reportable Nucleated RBC % 0.0 (0.0-0.2) % Platelet Estimate Adequate (Adequate) Macrocytosis 1+ (NORMAL) Schistocytes None seen PT 13.1 (11.1-14.7) Seconds INR 1.0 APTT 24.3 (22.3-36.8) Seconds Sodium 134 L (137-145) mmol/L Potassium 3.7 (3.4-5.0) mmol/L Chloride 99 (98-107) mmol/L Carbon Dioxide 23 (22-30) mmol/L Anion Gap 12 (4-12) mmol/L BUN 11 (7-17) mg/dL Creatinine 0.60 L (0.7-1.0) mg/dL Estim Creat Clear Calc 85 ml/min Estimated GFR > 60 (59 - ) Glucose 116 H (65-110) mg/dL Calcium 9.1 (8.4-10.2) mg/dL Phosphorus 3.2 Cancelled (2.5-4.5) mg/dL Magnesium 1.2 L Cancelled (1.6-2.3) mg/dL Total Bilirubin 1.2 (0.2-1.3) mg/dL AST 102 H (14-36) U/L ALT 51 H (6-35) U/L Alkaline Phosphatase 155 H (38-126) U/L Troponin I < 0.012 (0.000-0.034) ng/mL Total Protein 7.2 (6.3-8.2) g/dL Albumin 4.2 (3.5-5.1) g/dL Lipase 70 (23-300) U/L Serum HCG, Qual Negative Urine Color (Yellow) Urine Appearance (Clear) Urine pH (5.0-9.0) Ur Specific [place] (1.001-1.035) Urine Protein (Negative) mg/dL Urine Glucose (UA) (Negative) mg/dL Urine Ketones (Negative) mg/dL Ur Blood (Man) (Negative) Urine Nitrate (Negative) Urine Bilirubin (Negative) Urine Urobilinogen (<2.0) mg/dL Leukocyte Esterase Rfl (Negative) BECKY/UL Urine RBC (0-2) /hpf Urine WBC (0-3) /hpf Ur Squamous Epith Cells (Few) /hpf Urine Bacteria /hpf Urine Casts Urine Opiates Screen (Negative) Urine Methadone Screen (Negative) Ur Barbiturates Screen (Negative) Ur Phencyclidine Scrn (Negative) Ur Amphetamine Screen (Negative) U Benzodiazepines Scrn (Negative) Urine Cocaine Screen (Negative) U Cannabinoids Screen (Negative) Ethyl Alcohol < 10 (<10) mg/dL 04/16/25 Range/Units 16:02 WBC (4.5-10.0) K/mm3 RBC (4.2-5.4) M/mm3 Hgb (12.0-15.0) g/dL Hct (37.0-47.0) % MCV (80-100) fl MCH (26-34) pg MCHC (32-36) g/dl RDW (11.5-14.5) % Plt Count (150-375) k/mm3 MPV (7.4-10.4) fl Immature Gran % (Auto) (0-0.5) % Neut % (Auto) (45.5-73.1) % Lymph % (Auto) (18.3-44.2) % [place] % (Auto) (2.6-8.5) % Eos % (Auto) (0-4.4) % Baso % (Auto) (0.2-1.2) % Lymph # (Auto) (0.9-3.2) K/mm3 [place] # (Auto) (0.1-0.6) K/mm3 Eos # (Auto) (0-0.3) K/mm3 Baso # (Auto) (0.0-0.1) K/mm3 Abs Immat Gran (auto) (0.00-0.031) K/mm3 Absolute Neuts (auto) (1.3-6.7) K/mm3 Absolute Nucleated RBC (0.0-0.012) K/mm3 Band Neutrophils % Nucleated RBC % (0.0-0.2) % Platelet Estimate (Adequate) Macrocytosis (NORMAL) Schistocytes PT (11.1-14.7) Seconds INR APTT (22.3-36.8) Seconds Sodium (137-145) mmol/L Potassium (3.4-5.0) mmol/L Chloride (98-107) mmol/L Carbon Dioxide (22-30) mmol/L Anion Gap (4-12) mmol/L BUN (7-17) mg/dL Creatinine (0.7-1.0) mg/dL Estim Creat Clear Calc ml/min Estimated GFR (59 - ) Glucose (65-110) mg/dL Calcium (8.4-10.2) mg/dL Phosphorus (2.5-4.5) mg/dL Magnesium (1.6-2.3) mg/dL Total Bilirubin (0.2-1.3) mg/dL AST (14-36) U/L ALT (6-35) U/L Alkaline Phosphatase (38-126) U/L Troponin I (0.000-0.034) ng/mL Total Protein (6.3-8.2) g/dL Albumin (3.5-5.1) g/dL Lipase (23-300) U/L Serum HCG, Qual Urine Color Dark yellow (Yellow) Urine Appearance Turbid H (Clear) Urine pH 5.5 (5.0-9.0) Ur Specific [place] 1.027 (1.001-1.035) Urine Protein 2+ H (Negative) mg/dL Urine Glucose (UA) Negative (Negative) mg/dL Urine Ketones Trace H (Negative) mg/dL Ur Blood (Man) 2+ H (Negative) Urine Nitrate Negative (Negative) Urine Bilirubin 1+ H (Negative) Urine Urobilinogen 1.0 (<2.0) mg/dL Leukocyte Esterase Rfl Trace H (Negative) BECKY/UL Urine RBC 3-5 H (0-2) /hpf Urine WBC 21-50 H (0-3) /hpf Ur Squamous Epith Cells Occasional (Few) /hpf Urine Bacteria None seen /hpf Urine Casts 3-5 Urine Opiates Screen Positive A (Negative) Urine Methadone Screen Negative (Negative) Ur Barbiturates Screen Negative (Negative) Ur Phencyclidine Scrn Negative (Negative) Ur Amphetamine Screen Negative (Negative) U Benzodiazepines Scrn Negative (Negative) Urine Cocaine Screen Negative (Negative) U Cannabinoids Screen Negative (Negative) Ethyl Alcohol (<10) mg/dL <Alexandru Burgos MD - Last Filed: 04/16/25 21:43> Imaging Data Attestation: I personally reviewed and interpreted this imaging study as follows: (I reviewed the radiologist's interpretations) <Alexandru Burgos MD - Last Filed: 04/16/25 21:43> Radiologist's impression: Impressions Chest X-Ray 04/16/25 15:45 IMPRESSION: 1: NO ACUTE CARDIOPULMONARY DISEASE. Abdomen/Pelvis CT 04/16/25 16:55 IMPRESSION: Severe probable enterocolitis. Diffuse involvement of the large bowel can be seen with pseudomembranous colitis. Clinical correlation is required. There is no perforation or abscess. <Alexandru Burgos MD - Last Filed: 04/16/25 21:43> ECG Data EKG #1: ECG completion date: 04/16/25 <Alexandru Burgos MD - Last Filed: 04/16/25 21:43> ECG completion time: 15:09 <Alexandru Burgos MD - Last Filed: 04/16/25 21:43> Interpretation: Normal sinus rhythm rate of 68 with short AL interval, normal axis, QTC 453, nonspecific T-wave change no ST segment changes. <Alexandru Burgos MD - Last Filed: 04/16/25 21:43> Discharge Plan Discharge Clinical Impression: Hypomagnesemia, History of torsades de pointes, Enterocolitis, Intractable nausea and vomiting <Ariane Jacob APRN - Last Filed: 04/17/25 19:35> Patient Disposition: Still a Patient <Ariane Jacob APRN - Last Filed: 04/17/25 19:35> Condition: Stable <Ariane Jacob APRN - Last Filed: 04/17/25 19:35>
--- NOTE | 2025-04-16 14:33 | ECG_ITS ---
Test Date: 2025-04-16 15:09:33 Measurements Intervals [place] Rate: 68 P: 43 AK: 111 QRS: 54 QRSD: 82 T: 42 QT: 425 QTc: 453 Interpretive Statements SINUS RHYTHM WITH SHORT AK INTERVAL LOW QRS VOLTAGE IN PRECORDIAL LEADS [QRS DEFLECTION < 1.0 mV IN CHEST LEADS] NONSPECIFIC T-WAVE ABNORMALITY Compared to ECG 03/29/2025 00:45:51 Short AK interval now present T-wave abnormality now present Electronically Signed On 04-16-2025 15:57:35 CDT by Melita Ghotra M.D.
--- OUTSIDE RECORDS SUMMARY | 2025-04-16 15:02 | XMS_ITS | Clinical Summary ---
Author Organization [facility] dipika [facility] Address [address] [place] [address] [place] [address] Care Team Providers Care Gill Box Tender Name Role Phone Unavailable Primary Care Provider [...]
--- OUTSIDE RECORDS SUMMARY | 2025-04-16 15:02 | XMS_ITS | Encounter Summary ---
Author Organization [facility] Care Team Providers Care Telegraph Editor Name Role Phone Christian Merritt MD Primary Care Provider [phone] Mo Mitchell MD Primary Care Provider [phone] Neeta Ott RN Unavailable [phone] Encounter Details Date Type Department Care Team (Latest Contact Info) Description 12/09/2016 Orders Only [facility] CLINCON[facility] ProviderSerge MD [address] [place] [address] Social History Tobacco Use Types Packs/Day Years Used Date Smoking Tobacco: Never Assessed Comments Unknown Sex and Gender Information Value Date Recorded Sex Assigned at Not on file Legal Sex Female 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
--- OUTSIDE RECORDS SUMMARY | 2025-04-16 15:02 | XMS_ITS | Encounter Summary ---
Author Organization [facility] Care Team Providers Care Terminal Operations Supervisor Name Role Phone Christian Merritt MD Primary Care Provider [phone] Mo Mitchell MD Primary Care Provider [phone] Neeta Ott RN Unavailable [phone] Encounter Details Date Type Department Care Team (Latest Contact Info) Description 12/06/2016 Orders Only [facility] CLINCONV ProviderSerge MD [address] [place] [address] Social History Tobacco Use Types Packs/Day Years Used Date Smoking Tobacco: Never Assessed Comments Unknown Sex and Gender Information Value Date Recorded Sex Assigned at Not on file 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
--- OUTSIDE RECORDS SUMMARY | 2025-04-16 15:02 | XMS_ITS | Clinical Summary ---
Author Organization [facility] Address [address] [place] [address] Care Team Providers Care Evening Or Night Nurse Supervisor Name Role Phone Mo Mitchell MD Primary Care Provider [phone] Allergies Active Allergy Reactions Criticality Noted Date [...] for diarrhea 100 mL 5 Active multivit ontiyssf-drrw-H A-calcium (THERA-M) 9 mg iron-400 mcg tabletIndicatio [...] daily until blood thinner is received from editing clerk office Indications: treatment to prevent a heart [...] Type Department Care Team Description 04/02/2025 Telephone [facility] Medicine Cardiothoracic Surgery [address] [facility] Advanced Medicine 8th Floor [address] Room [address] [place] [phone] Bo Fried MD 03/12/2025 4:03 PM CDT - 03/12/2025 11:59 PM CDT Hospital Encounter [facility] Cardiac Diagnostic Lab [address] [facility] 8th [place] [phone] Mass of left cardiac ventricle Discharge Disposition: Discharge to home or self care 02/22/2025 Home Care Visit [facility] Health - [address] [place] [address] Nayely Pedroza, BRITTANIE SN VIRTUAL NON OASIS DISCHARGE 02/20/2025 Home Care Visit [address] [place] [address] Nayely Pedroza, BRITTANIE TELEPHONE ENCOUNTER 02/19/2025 Home Care Visit [address] [place] [address] Nayely Pedroza, RN TELEPHONE ENCOUNTER 02/15/2025 Orders Only [facility] Medicine Cardiothoracic Surgery [address] Room [address] [place] [phone] Bo Fried MD Mass of left cardiac ventricle (Primary Dx) 02/15/2025 Telephone [facility] Home Care Services [address] [facility] [address] [place] [address] Unknown, Notinfile 02/14/2025 Telephone [facility] Home Care Services [address] [facility] [address] [place] [phone] Salas, Summer 02/13/2025 Orders Only [facility] Cardiothoracic Surgery [address] Room [address] [place] [phone] Bo Fried MD Mass of left cardiac ventricle (Primary Dx) 02/12/2025 2:30 PM CDT Home Care Visit [place] [address] [address] [place] [address] Nayely Pedroza, BRITTANIE SN HOME VISIT 02/07/2025 10:00 AM CDT Home Care Visit [address] [place] [address] Isabelle Campbell, OT OT INITIAL EVALUATION 02/07/2025 9:00 AM CDT Home Care Visit [address] [place] [address] Pia Swan RN SN HOME VISIT 02/07/2025 Telephone [facility] Medicine Infectious Diseases [address] [facility] [address] [place] [phone] Rosangela Simental, ACTIVITIES DIRECTOR 02/06/2025 2:00 PM CDT Home Care Visit [place] [address] [address] [place] [address] Thang Solorzano, PT PT INITIAL EVALUATION 02/05/2025 Home Care Visit [place] [address] [address] [place] [address] Pia Moon, BRITTANIE TELEPHONE ENCOUNTER 02/01/2025 Telephone [facility] Medicine Cardiology [address] 8th [place] [address] [place] [phone] Scheduling Appointments 01/31/2025 2:00 PM CDT Home Care Visit [place] [address] [address] [place] [address] Nayely Pedroza, BRITTAINE SN OASIS RECERTIFICATION 01/31/2025 Plan of Care Documentation [place] [address] [address] [place] [address] 01/29/2025 Home Care Visit [place] [address] [address] [place] [address] Nayely Pedroza, BRITTANIE TELEPHONE ENCOUNTER 01/28/2025 Home Care Visit [place] [address] [address] [place] [address] Nayely Pedroza, RN TELEPHONE ENCOUNTER 01/24/2025 9:40 AM CDT Office Visit [facility] Medicine Infectious Diseases [address] [facility] [address] [place] [phone] Dorothea Stephen NP MSSA bacteremia (Primary Dx) 01/22/2025 12:40 PM CDT - 01/22/2025 11:59 PM CDT Hospital Encounter [facility] [address] [place] [address] Discharge Disposition: Discharge to home or self care 01/22/2025 12:00 PM CDT Home Care Visit [address] [place] [address] Nayely Pedroza, BRITTANIE SN HOME VISIT 01/18/2025 10:30 AM CDT Home Care Visit [address] [place] [address] Billy Zarco, BRITTANIE SN OASIS RESUMPTION OF CARE 01/18/2025 Plan of Care Documentation [address] [place] [address] 01/17/2025 Orders Only [facility] Medical Group Cardiology [address] [place] [address] Oz Noble MD 01/17/2025 Home Care Visit [address] [place] [address] Pia Moon, RN SN OASIS TRANSFER W/OUT DC 01/16/2025 Home Care Visit [address] [place] [address] Pia Moon, RN TELEPHONE ENCOUNTER 01/15/2025 10:00 AM CDT Office Visit [facility] Medicine Cardiothoracic Surgery [address] [facility] Medicine 8th Floor [address] Room [address] [place] [phone] Bo Fried MD Mass of left cardiac ventricle 01/15/2025 8:15 AM CDT - 01/15/2025 11:59 PM CDT Hospital Encounter [facility] Cardiac Diagnostic Lab [address] [facility] 8th [place] [phone] Bo Fried MD MSSA bacteremia; Thrombocytopenia Discharge Disposition: Discharge to home or self care 01/14/2025 Telephone [facility] Home Care Services [address] [facility] [address] [place] [address] Ondina Salas [facility] from Last 3 Months Immunizations Immunization Administration [...] from doctor or pharmacy Sometimes 01/18/2025 [facility] Utilities Answer Date Recorded In the past 12 months has e [employer], gas, oil, or water [employer] threatened to shut off services in your [...] week 11/29/2024 How often do you attend [facility] or [facility] services? Never 11/29/2024 Do you belong to [...] any time in the past 12 m [facility], were you homeless or living in a assisted (including now)? No 11/29/2024 Personal Safety Answer Date Recorded Have you ever been in or are you currently in a harmful physical or emotional relationship or is someone making you feel afraid or unsafe? 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 Gender Identity Not on file Sexual [...] of left cardiac ventricle BLOOD MISC TO VERNON Routine 01/22/2025 12 :40 PM CDT EGFR [...] E6/E7, CHLAMYDIA/N.GONORRHOEA E Routine 09/14/2016 12:56 PM CARBIDE OPERATOR from Last 3 Months or Most Recently Relevant to Health Maintenance Results * TRANSTHORACIC ECHO (TTE) COMPLETE W DOPPLER/CF W CONTRAST (03/12/2025 5:26 PM CDT) EF Mod BP 59 % CONS SCIMAGE Anatomical Region Laterality Modality Ultrasound 03/12/2025 4:09 PM CDT Narrative 03/13/2025 8:00 AM CDT [facility] [place]iac [place] [address] Transthoracic Echocardiographic Report Patient Name: HAYLEY LEÓN L : 1990 (35y 1m) Gender: F Study Date: 03/12/2025 04:09:57 PM Ht(Inch): 60 Wt(Lb): 110.01 BSA: 1.45 Lining Repairer: Sofia Campos RDCS Location: [facility] Order Provider: BO FRIED Heart Rate: 68 [...] Procedure Note Santi Mcelroy MD - 03/13/2025 [facility] [place]iac [place] [address] [place] [address] Transthoracic Echocardiographic Report Patient Name: HAYLEY LEÓN L : 1990 (35y 1m) Gender: F Study Date: 03/12/2025 04:09:57 PM Ht(Inch): 60 Wt(Lb): 110.01 BSA: 1.45 Lining Repairer: Sofia Campos [facility] Location: [facility] Order Provider:BO FRIED Heart Rate: 68 BMI: [...] LA Length 4C 4.62 cm MV Decel Enbr441.79 msec [ 104.00 - 258.00 ] LA [...] PROCEDURES Final Result * BLOOD MISC TO VERNON (01/22/2025 12:40 PM CDT) Test name, chem CDTA,CARBOHYD RATE DEFICIENT TRANSFERRIN,A DULT SCRE [place] [facility] Comment:Credited, test not i ndicated. Misc see comment SHONA [facility] Comment:Credited, test not i ndicated. Blood 01/22/2025 12:4 0 PM CDT 01/24/2025 2:14 PM CDT us Notinfile Unknown LAB BLOOD ORDERABLES Final Res ult [facility] One [facility] Department [place] [address] [place] [facility] * eGFR (01/22/2025 12:40 PM [...] Unknown LAB BLOOD ORDERABLES Final Res ult [facility] One [facility] Department [place] [address] * Differential, auto (01/22/2025 12:40 PM CDT) Neutrophil abs 2.80 1.50 - 6.50 K/cumm Imm gran abs 0.00 0.00 - 0.10 K/cumm [facility] Lymphocyte abs 2.66 0.80 - 3.30 K/cumm [facility] Monocyte abs 0.21 0.20 - 0.80 K/cumm [facility] Eosinophil abs 0.14 0.00 - 0.50 K/cumm [facility] Basophil abs 0.05 0.00 - 0.10 K/cumm [facility] Neutrophil pct 47.7 % [facility] Comment: Interpretive Data Percent cell count reference ranges are not reported, since discordance with absolute values may lead to misinterpretation of CBC data. Current Interpretive Data was last revised on 2017. Imm gran pct 0.0 % [facility] Comment: Interpretive Data Percent cell count reference ranges are not reported, since discordance with absolute values may lead to misinterpretation of CBC data. Current Interpretive Data was last revised on 2017. Lymphocyte pct 45.4 % [facility] Comment: Interpretive Data Percent cell count reference ranges are not reported, since discordance with absolute values may lead to misinterpretation of CBC data. Current Interpretive Data was last revised on 2017. Monocyte pct 3.6 % [facility] Comment: Interpretive Data Percent cell count reference ranges are not reported, since discordance with absolute values may lead to misinterpretation of CBC data. Current Interpretive Data was last revised on 2017. Eosinophil pct 2.4 % [facility] Comment: Interpretive Data Percent cell count reference ranges are not reported, since discordance with absolute values may lead to misinterpretation of CBC data. Current Interpretive Data was last revised on 2017. Basophil pct 0.9 % [facility] Comment: Interpretive Data Percent cell count reference ranges are not reported, since discordance with absolute values may lead to misinterpretation of CBC data. Current Interpretive Data was last revised on 2017. Blood 01/22/2025 12:4 0 PM CDT 01/22/2025 3:52 PM CDT us Notinfile Unknown LAB BLOOD ORDERABLES Final Res ult Performing Organization Address [facility] Co de Phone Number [facility] Department [place] [address] * (ABNORMAL) Iron profile w/ IBC (01/22/2025 12:40 PM CDT) Pathologist [facility] Iron 60 35 - 145 mcg/dL TIBC 322 250 - 400 mcg/dL [facility] Transferrin saturation 19(L) 20 - 50 % [facility] Blood 01/22/2025 12:4 0 PM CDT 01/22/2025 3:52 PM CDT us Notinfile Unknown LAB BLOOD ORDERABLES Final Res ult Performing Organization Address [facility] Co de Phone Number [facility] [place] [address] * (ABNORMAL) CBC with auto differential (01/22/2025 12:40 PM CDT) Pathologist [facility] WBC 5.86 3.80 - 9.90 K/cumm Hgb 12.9 11.9 - 15.5 g/dL [facility] Hct 39.0 35.6 - 45.5 % [facility] Plt 170 150 - 400 K/cumm [facility] MPV 11.0 9.1 - 12.[address] [facility] RBC 4.01 3.90 - 5.20 M/cumm [facility] MCV 97.3(H) 81.3 - 96.[address] [facility] MCH 32.2 27.1 - 33.[address] [facility] MCHC 33.1 32.3 - 35.7 g/dL [facility] RDW CV 13.4 11.1 - 14.9 % [facility] RDW SD 47.5 35.7 - 48.[address] [facility] NRBC abs 0.00 0.00 - 0.01 K/cumm [facility] Blood 01/22/2025 12:4 0 PM CDT 01/22/2025 3:52 PM CDT us Notinfile Unknown LAB BLOOD ORDERABLES Final Res ult Performing Organization Address [facility] [place] [address] * Magnesium (01/22/2025 12:40 PM CDT) Pathologist [facility] Magnesium 2.0 1.4 - 2.5 mg/dL Blood 01/22/2025 12:4 0 PM CDT 01/22/2025 3:52 PM CDT us Notinfile Unknown LAB BLOOD ORDERABLES Final Res ult Performing Organization Address [facility] de Phone Number [facility] [place] [address] * Folate (01/22/2025 12:40 PM CDT) Pathologist [facility] Folic acid >20.0 >=5.0 ng/mL Blood 01/22/2025 12:4 0 PM CDT 01/22/2025 3:52 PM CDT us Notinfile Unknown LAB BLOOD ORDERABLES Final Res ult Performing Organization Address [facility] de Phone Number [facility] [place] [place] [address] * Vitamin B12 (01/22/2025 12:40 PM CDT) Vitamin B12 815 230 - 1,250 pg/mL Blood 01/22/2025 12:4 0 PM CDT 01/22/2025 3:52 PM CDT us Notinfile Unknown LAB BLOOD ORDERABLES Final Res ult [facility] One [facility] Department [place] [address] * (ABNORMAL) Comprehensive metabolic panel (01/22/2025 12:40 PM CDT) Sodium 135 135 - 145 mmol/L Potassium, pl 3.4 3.3 - 4.9 mmol/L [facility] Chloride 98 97 - 110 mmol/L [facility] CO2 23 22 - 32 mmol/L [facility] Anion gap 14 2 - 15 mmol/L [facility] BUN 9 6 - 25 mg/dL [facility] Creatinine 0.63 0.60 - 1.10 mg/dL [facility] Glucose 85 70 - 199 mg/dL [facility] Comment: Interpretive Data Fasting glucose [...] 2022. Calcium 10.1 8.5 - 10.3 mg/[facility] Bilirubin, total 0.4 0.1 - 1.2 mg/dL [facility] Protein, pl 7.5 6.5 - 8.5 g/dL [facility] Albumin 4.1 3.5 - 5.0 g/dL [facility] Alk phos 139(H) 40 - 130 Units/L [facility] ALT 33 7 - 45 Units/L [facility] AST 58(H) 10 - 45 Units/L [facility] Blood 01/22/2025 12:4 0 PM CDT 01/22/2025 3:52 PM CDT us Notinfile Unknown LAB BLOOD ORDERABLES Final Res ult SH[facility] One [facility] Department [place] [address] * TRANSTHORACIC ECHO (TTE) COMPLETE W DOPPLER/CF W CONTRAST (01/15/2025 9:57 AM CDT) EF Mod BP 55 % CONS SCIMAGE Anatomical Region Laterality Modality Ultrasound 01/15/2025 8:50 AM CDT Narrative 01/15/2025 11:28 AM CDT [facility] [place]iac [place] [address] Transthoracic Echocardiographic Report Patient Name: HAYLEY LEÓN L : 1990 (34y 11m) Gender: F Study Date: 01/15/2025 08:50:13 AM Ht(Inch): 61 Wt(Lb): 102.07 BSA: 1.41 Lining Repairer: Roza. Watkins [facility] Location: [facility] Order Provider: BO FRIED Heart Rate: 81 [...] 14.00 - 42.00 ] MV E Peak Avlaro 0.6 m/s [ 0.6 - 1.3 ] [...] Note Italo Hill MD PhD - 01/15/2025 [facility] [place] [address] Transthoracic Echocardiographic Report Patient Name: HAYLEY LEÓN L : 1990 (34y 11m) Gender: F Study Date: 01/15/2025 08:50:13 AM Ht(Inch): 61 Wt(Lb): 102.07 BSA: 1.41 Lining Repairer: Roza. Watkins [facility] Location: [facility] Order Provider:BO FRIED Heart Rate: 81 BMI: [...] LA Length 2C 3.64 cm MV Decel Ymoj391.25 msec [ 104.00 - 258.00 ] LA [...] Blood (11/03/2024 2:31 PM CDT) Pathologist [facility] Hep A IgM Nonreactive Nonreactive Hep B core IgM Nonreactive Nonreactive [facility] Hep C Ab Nonreactive Nonreactive [facility] Comment:Antibodies to HCV no t detected. Does NOT exclude the possibility of recent exposure to HCV. Current interpretive data was last revised on 22 HepBsAg Nonreactive Nonreactive [facility] Blood 11/03/2024 2:31 PM CDT 11/03/2024 2:38 PM CDT Mar George MD LAB MICROBIOLOGY - GENERAL ORDERABLES Final Result [facility] One [facility] Department [place] [address] * THINPREP TIS PAP REFLEX HPV mRNA E6/E7, CHLAMYDIA/N.GONORRHOEAE (09/14/2016 12:56 PM CARBIDE OPERATOR) Pathologist [facility] CLINICAL INFORMATION [facility] HISTORICAL RESULTS Comment: LMP: [facility] HISTORICAL RESULTS PREV. PAP: [facility] HISTORICAL RESULTS Comment:2011 PREV. BX: [facility] HISTORICAL RESULTS Comment:UNKNOWN SOURCE: [facility] HISTORICAL RESULTS Comment:Cervix, Endocervix STATEMENT OF ADEQUACY: [facility] HISTORICAL RESULTS Comment:Satisfactory for savana luation. Endocervical/transformation zone component present. INTERPRETATION/RES ULT: [facility] HISTORICAL RESULTS Comment:Negative for intraep ithelial lesion or malignancy. COMMENT: [facility] HISTORICAL RESULTS Comment:This Pap test has be en evaluated with computer assisted technology. [facility] SCOUT: [facility] Comment:YQ, CT(ASCP) CT scre ening location: [place] [address] [place] [address] C. trachomatis RNA NOT DETECTED NOT DETECTED [facility] HISTORICAL RESULTS N. gonorrhoeae RNA NOT DETECTED NOT DETECTED [facility] HISTORICAL RESULTS COMMENT [facility] HISTORICAL RESULTS Comment: This test was performed using the APTIMA COMBO2 Assay ([employer] The analytical performance characteristics of this assay, when used to test SurePath specimens have been determined by Location. 09/14/2016 12:5 6 PM CARBIDE OPERATOR 09/20/2016 11:25 AM CARBIDE OPERATOR Narrative [facility] HISTORICAL RESULTS - 09/20/2016 11:07 AM CARBIDE OPERATOR 0 PERFORMING LAB: [facility] [employer] [place] [address] [facility] [id number] Pelon Hand MD Irene Spivey CN LAB PATHOLOGY ORDERABLE S Final Result 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
--- OUTSIDE RECORDS SUMMARY | 2025-04-16 15:02 | XMS_ITS | Encounter Summary ---
Author Organization [facility] Facility Care Team Providers Care Sheet Manager Name Role Phone Christian Merritt MD Primary Care Provider [phone] Mo Mitchell MD Primary Care Provider [phone] Neeta Ott RN Unavailable [phone] Encounter Details Date Type Department Care Team (Latest Contact Info) Description 01/05/2017 Orders Only [facility] CLINCONV ProviderSerge MD [address] [place] [address] Social History Tobacco Use Types Packs/Day Years Used Date Smoking Tobacco: Never Assessed Comments Unknown Sex and Gender Information Value Date Recorded Sex Assigned at Not on file Legal Sex Female 8:06 PM DROP HAMMER SET UP OPERATOR Gender Identity Not on file Sexual [...] documented as of this encounter Care Teams Sheet Manager Relationship Specialty Start Date End Date Christian Merritt MD PCP - General Emergency Medicine 06/10/22 10/30/24 Mo Mitchell MD [address] [place] [address] [place] [address] PCP - General Internal Medicine 10/31/24 Neeta Ott, RN [address] [address] [facility] Outpatient Technical Programs Manager 11/29/24 12/06/24 documented as of this encounter
[2025-04-16] MEDS: SODIUM CHLORIDE 0.9% IV 1,000 ML 999 ML IV CONT (15:18)
[2025-04-16 15:20] LABS: Hematocrit 41.1 % (37.0-47.0); Hemoglobin 14.0 g/dL (12.0-15.0); Immature Granulocyte Percent A 0.1 % (0-0.5); Lymphocytes Absolute Auto 1.36 K/mm3 (0.9-3.2); Mean Corpuscular HGB Conc 34.1 g/dl (32-36); Mean Corpuscular Hemoglobin 36.3 pg (26-34); Mean Corpuscular Volume 106.5 fl (80-100); Nucleated Red Blood Cells Absolute Auto 0.000 K/mm3 (0.0-0.012); Nucleated Red Blood Cells Perc 0.0 % (0.0-0.2); Platelet Count Result 221 k/mm3 (150-375); Red Blood Count 3.86 M/mm3 (4.2-5.4); White Blood Count 7.7 K/mm3 (4.5-10.0)
[2025-04-16] MEDS: PROCHLORPERAZINE EDISYLATE 10 MG/2 ML VIAL IV PUSH (15:27)
[2025-04-16 15:31] LABS: INR 1.0; Prothrombin Time 13.1 Seconds (11.1-14.7)
[2025-04-16] MEDS: MORPHINE SULFATE (*CRX) 2 MG/ML INJ IV PUSH (15:31)
[2025-04-16 15:32] LABS: Partial Thromboplastin Time 24.3 Seconds (22.3-36.8)
[2025-04-16 15:34] LABS: Alanine Aminotransferase 51 U/L (6-35); Albumin Level 4.2 g/dL (3.5-5.1); Alkaline Phosphatase 155 U/L (38-126); Anion Gap 12 mmol/L (4-12); Aspartate Amino Transferase 102 U/L (14-36); Bilirubin,Total 1.2 mg/dL (0.2-1.3); Blood Urea Nitrogen 11 mg/dL (7-17); Calcium 9.1 mg/dL (8.4-10.2); Carbon Dioxide 23 mmol/L (22-30); Chloride 99 mmol/L (98-107); Estimated CRCL calculation 85 ml/min; Estimated Glomerular Filt Rate > 60; Glucose 116 mg/dL (65-110); Lipase 70 U/L (23-300); Magnesium 1.2 mg/dL (1.6-2.3); Potassium 3.7 mmol/L (3.4-5.0); Sodium 134 mmol/L (137-145); Total Protein 7.2 g/dL (6.3-8.2)
[2025-04-16 15:42] LABS: Macrocytosis 1+ (NORMAL); Schistocytes None Seen
[2025-04-16 15:45] LABS: Troponin I < 0.012 ng/mL (0.000-0.034)
[2025-04-16 15:56] LABS: SPREG INTERNAL CONTROL Positive; Serum Qual hCG Negative
[2025-04-16 16:13] LABS: Add Urine Microscopic? YES; Appearance Urine Turbid (Clear); Glucose Urine UA Negative (Negative); Leukocyte Esterase Ur Trace LEU/UL (Negative); Nitrate Urine Negative (Negative); Specific Grav Ur 1.027 (1.001-1.035)
[2025-04-16] MEDS: MAGNESIUM SULF 2 GM/WATER 50ML 2 GM/50 ML BAG IVPB (17:01)
--- NOTE | 2025-04-16 17:12 | PC.NURSE ---
pt complaining of IV burning. IV is patent. titrated Magnesium down to 15mL/hr. pt still complaining of burning. titrated again to 10mL/hr.
[2025-04-16] MEDS: SCOPOLAMINE 1 MG PATCH 1 PATCH TRANSDERM (19:59)
[2025-04-16 21:29] LABS: Cannabinoid Screen Urine Negative (Negative)
--- NOTE | 2025-04-16 22:02 | PM.IMHP ---
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 She presents to [facility] on 04/16/2025 with 5 days of nonbloody diarrhea nausea and vomiting. Sodium 134, serum creatinine 0.60, magnesium 1.2, chronic transaminitis, urinalysis grossly abnormal however slightly contaminated. EKG demonstrating sinus rhythm, QTC 453. Chest x-ray without acute cardiopulmonary disease, CT abdomen pelvis with contrast demonstrates enterocolitis. She was given magnesium sulfate 2 g, Decadron 4 mg IV x1, scopolamine patch x1 for nausea, morphine 2 mg IV, Compazine 10 mg IV x1, 1 L normal saline bolus. Review of Systems Review of Systems: All systems reviewed & are unremarkable except as noted in HPI and below (Subjective) [facility] Past Medical History Medical History Cardiac arrest with ventricular fibrillation October 2024 Adrenal insufficiency Depression with anxiety Avoidant/restrictive food intake disorder Cannabis abuse Elevated LFTs Mitral valve prolapse Surgical History Surgical History History of percutaneous endoscopic gastrostomy Family History Family History Mother Heart attack Mitral valve prolapse Grandparent Cancer Grandparent Mitral valve prolapse Social History Social History Social History: Surrogate medical decision maker: oJrge Luis Centeno, significant other. Code status: Full code. Smoking packs per day: 0.5 Smoking cigarettes per day: 10.0 Years smoked: 20 Smoking pack-years: 10.00 Smoking status: Current every day smoker Tobacco type: cigarettes Alcohol intake: current Drinks per week: 4 Alcohol use details: States she drinks 1 pint a week Substance use: former Substance use type: marijuana Other substance usage details: weekly Last use: 01/22/2025 Do You Feel Safe in your Home?: Yes Lack of Transportation: No Lack of Food: Never True Current Housing: I Have Housing Concerned About Future Housing: No Difficulty Paying Gas/Electric Bills: No Difficulty Paying for Meds: No Currently Unemployed: No Education: Decline to Answer Difficulty w/ Childcare or Family Care: No Living arrangements: with family Additional living arrangements comments: with 7 year old son and fianc? Occupation/Education: unemployed Spiritual care concerns: No Agree to blood products: Yes Meds Home Medications and Allergies Home Medications ?Medication ?Instructions ?Recorded ?Confirmed ?Type ferrous sulfate 325 mg (65 mg 325 mg PO BID 03/28/24 03/04/25 History iron) tablet,delayed release folic acid 1 mg tablet 1 mg feeding tube DAILY 03/28/24 03/04/25 History megestrol 20 mg tablet 20 mg feeding tube BID 03/28/24 03/04/25 History multivitamin with folic acid 400 1 tablet PO QAM 03/28/24 03/04/25 History mcg tablet (Thera) thiamine HCl (vitamin B1) 100 mg 100 mg feeding tube DAILY 03/28/24 03/04/25 History tablet vitamin B complex (Vitamins B 1 cap feeding tube QAM 03/28/24 03/04/25 History Complex capsule) lactose-reduced food with fiber See Rx Instructions .Route .COMPLEX 08/07/24 03/04/25 History 0.06 gram-1.5 kcal/mL oral liquid (Jevity 1.5 Chriss) metoclopramide HCl 10 mg tablet 10 mg PO Q6H nausea and vomiting 08/15/24 03/04/25 Rx (Reglan) #120 tabs potassium chloride 10 mEq 10 meq feeding tube DAILY #60 caps 08/15/24 03/04/25 Rx capsule,extended release buspirone 15 mg tablet 15 mg feeding tube TID 01/08/25 03/04/25 History cyanocobalamin (vitamin B-12) 1,000 mcg feeding tube MONTHLY 01/08/25 03/04/25 History 1,000 mcg tablet nicotine 14 mg/24 hr daily 1 patch transdermal Q24H 01/08/25 03/04/25 History transdermal patch olanzapine 5 mg tablet 5 mg feeding tube QPM 01/08/25 03/04/25 History oxycodone 5 mg tablet 5 mg feeding tube Q8H PRN pain 01/08/25 03/04/25 History rivaroxaban 20 mg tablet (Xarelto) 20 mg PO DAILY@1700 #30 tabs 01/12/25 03/04/25 Rx ergocalciferol (vitamin D2) 1,250 1,250 mcg feeding tube WEEKLY 02/13/25 03/04/25 History mcg (50,000 unit) capsule famotidine 20 mg tablet 20 mg PO HS 02/13/25 03/04/25 History magnesium oxide 400 mg (241.3 mg 420 mg feeding tube DAILY 02/13/25 03/04/25 History magnesium) tablet methocarbamol 750 mg tablet 750 mg feeding tube .q4hr 02/13/25 03/04/25 History nadolol 20 mg tablet 20 mg feeding tube DAILY 02/13/25 03/04/25 History simethicone 80 mg chewable tablet 80 mg feeding tube QID PRN 02/13/25 03/04/25 History abdominal distention Allergies Allergy/AdvReac Type Severity Reaction Status Date / Time latex Allergy Rash Verified 04/16/25 12:00 melatonin AdvReac Mild chest Verified 04/16/25 12:00 heaviness Vital Signs Vital Signs - 24 hr 04/16/25 11:58 04/16/25 14:44 04/16/25 14:45 Temperature 98.7 F Pulse Rate 105 H 77 Respiratory Rate 16 16 Blood Pressure 136/80 132/83 Pulse Oximetry 99 100 100 Oxygen Delivery Room Air 04/16/25 15:13 04/16/25 15:35 04/16/25 15:45 Temperature Pulse Rate 77 78 71 Respiratory Rate 29 H 21 H 27 H Blood Pressure Pulse Oximetry 100 100 98 Oxygen Delivery 04/16/25 16:00 04/16/25 16:15 04/16/25 16:31 Temperature Pulse Rate 71 75 Respiratory Rate 19 Blood Pressure Pulse Oximetry 95 100 100 Oxygen Delivery 04/16/25 16:59 04/16/25 17:36 04/16/25 18:05 Temperature Pulse Rate 82 83 84 Respiratory Rate 20 19 20 Blood Pressure 106/65 Pulse Oximetry 99 98 97 Oxygen Delivery 04/16/25 18:15 04/16/25 18:33 04/16/25 18:49 Temperature Pulse Rate 80 78 Respiratory Rate 16 19 Blood Pressure Pulse Oximetry 99 99 100 Oxygen Delivery 04/16/25 19:08 04/16/25 19:16 04/16/25 20:45 Temperature Pulse Rate 68 68 70 Respiratory Rate 20 16 19 Blood Pressure 95/63 L 101/64 Pulse Oximetry 100 100 98 Oxygen Delivery Exam Const: General: comfortable and no acute distress HENMT: Mouth: Yes moist mucous membranes Eyes: Pupils: Equal, round and reactive pupils present Neck: Neck: supple Resp: Effort & Inspection: normal respiratory effort Auscultation: clear to auscultation bilaterally Cardio: Rate: regular rate Rhythm: regular rhythm GI: Inspection: non-distended GI Palp: Yes Soft to palpation Other: Feeding tube intact, no erythema or purulence Neuro: Motor exam (neuro): 5/5 motor strength present throughout Extrem: General: no edema H&P: Results Labs Labs: Short CBC 04/16/25 Range/Units 15:13 WBC 7.7 (4.5-10.0) K/mm3 Hgb 14.0 (12.0-15.0) g/dL Hct 41.1 (37.0-47.0) % Plt Count 221 (150-375) k/mm3 BMP 04/16/25 15:13 Sodium 134 L Potassium 3.7 Chloride 99 Carbon Dioxide 23 BUN 11 Creatinine 0.60 L Glucose 116 H Calcium 9.1 Cardiac Enzymes 04/16/25 Range/Units 15:13 Troponin I < 0.012 (0.000-0.034) ng/mL Liver Function 04/16/25 Range/Units 15:13 Total Bilirubin 1.2 (0.2-1.3) mg/dL AST 102 H (14-36) U/L ALT 51 H (6-35) U/L Alkaline Phosphatase 155 H (38-126) U/L Albumin 4.2 (3.5-5.1) g/dL Urine 04/16/25 Range/Units 16:02 Urine Color Dark yellow (Yellow) Urine Appearance Turbid H (Clear) Urine pH 5.5 (5.0-9.0) Ur Specific [place] 1.027 (1.001-1.035) Urine Protein 2+ H (Negative) mg/dL Urine Glucose (UA) Negative (Negative) mg/dL Assessment and Plan Assessment and plan (1) ETOH abuse: Code(s): F10.10 - Alcohol abuse, uncomplicated Status: Acute (2) Cannabis abuse: Code(s): F12.10 - Cannabis abuse, uncomplicated Status: Acute (3) Depression with anxiety: Code(s): F41.8 - Other specified anxiety disorders Status: Acute (4) Eating disorder, unspecified: Code(s): F50.9 - Eating disorder, unspecified Status: Acute (5) Avoidant/restrictive food intake disorder: Code(s): F50.82 - Avoidant/restrictive food intake disorder Status: Acute (6) Enterocolitis: Code(s): K52.9 - Noninfective gastroenteritis and colitis, unspecified Status: Acute (7) Hypomagnesemia: Code(s): E83.42 - Hypomagnesemia Status: Acute Plan 35-year-old female with PMH cardiac arrest secondary to VFib in 10/2024 placed on nadolol all due to concerns of congenital QTC prolongation with Kestra (followed by EP at [facility]), left ventricular clot, 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 She presents to [facility] on 04/16/2025 with 5 days of nonbloody diarrhea nausea and vomiting. Sodium 134, serum creatinine 0.60, magnesium 1.2, chronic transaminitis, urinalysis grossly abnormal however slightly contaminated. EKG demonstrating sinus rhythm, QTC 453. Chest x-ray without acute cardiopulmonary disease, CT abdomen pelvis with contrast demonstrates enterocolitis. She was given magnesium sulfate 2 g, Decadron 4 mg IV x1, scopolamine patch x1 for nausea, morphine 2 mg IV, Compazine 10 mg IV x1, 1 L normal saline bolus. ----- She reports her last drink was 3 days prior to admission. She does not appear to be in alcohol withdrawal. Start Zosyn, check C diff, stool culture, urine culture. Check magnesium BMP after magnesium infusion. 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 Her other medications will be restarted as indicated and appropriate. Full code. Sodium chloride infusion. SCDs. Clear liquid diet. Hospitalist MIPS Advance Care Plan I have confirmed that the patient's Advanced Care Plan is present, code status is documented, or surrogate decision maker is listed in patient medical record.: Yes Medication Reconciliation I have utilized all available resources to obtain, update and review the patients current medications (includes all prescriptions, OTC, herbals, cannabis, and nutritional supplements).: Yes
[2025-04-16] MEDS: SODIUM CHLORIDE 0.9% IV 1,000 ML 100 ML IV CONT (22:32)
[2025-04-16] MEDS: PIPERACILLIN/TAZOBACTAM SOD 3.375 GM in SODIUM CHLORIDE 0.9% IV 50 ML 100 ML IVPB (22:32)
--- NOTE | 2025-04-16 22:57 | ADMGEN ---
This patient, Ester León, was admitted to IMU Room 201-01. Patient/family oriented to hospital policies and general routines including ID bracelet, bed and alarms, visiting hours, pain management, procedures, bathroom and other care routines, personal items, smoking policy, room service/diet, and visiting hours. Information on how to activate the Rapid Response Team has been discussed. Patient/Family are encouraged to report perceived risks to care and to ask questions if they do not understand what they are told or what they should do.
--- NOTE | 2025-04-16 23:37 | PC.NURSE ---
life vest was removed from pt and placed with pts personal belongings.
[2025-04-16] MEDS: NICOTINE (*PBKC) 14 MG PATCH 1 PATCH TRANSDERM (23:59)
[2025-04-17] VITALS (19 sets, daily range): BP systolic 100–115; BP diastolic 55–72; PULSE 44–90; RESP 16–17; TEMP 36.5–36.8; O2SAT 97–100; BMI 22.8
[2025-04-17 00:40] LABS: Anion Gap 7 mmol/L (4-12); Blood Urea Nitrogen 8 mg/dL (7-17); Calcium 8.7 mg/dL (8.4-10.2); Carbon Dioxide 22 mmol/L (22-30); Chloride 102 mmol/L (98-107); Estimated CRCL calculation 82 ml/min; Estimated Glomerular Filt Rate > 60; Glucose 144 mg/dL (65-110); Magnesium 2.3 mg/dL (1.6-2.3); Potassium 3.5 mmol/L (3.4-5.0); Sodium 131 mmol/L (137-145)
[2025-04-17] MEDS: POTASSIUM CHLORIDE INJ 40 MEQ in SODIUM CHLORIDE 0.9% IV 500 ML 130 MEQ IVPB (02:28)
[2025-04-17 03:19] LABS: Hematocrit 36.8 % (37.0-47.0); Hemoglobin 12.1 g/dL (12.0-15.0); Immature Granulocyte Percent A 0.4 % (0-0.5); Lymphocytes Absolute Auto 0.51 K/mm3 (0.9-3.2); Mean Corpuscular HGB Conc 32.9 g/dl (32-36); Mean Corpuscular Hemoglobin 35.7 pg (26-34); Mean Corpuscular Volume 108.6 fl (80-100); Nucleated Red Blood Cells Absolute Auto 0.000 K/mm3 (0.0-0.012); Nucleated Red Blood Cells Perc 0.0 % (0.0-0.2); Platelet Count Result 187 k/mm3 (150-375); Red Blood Count 3.39 M/mm3 (4.2-5.4); White Blood Count 2.8 K/mm3 (4.5-10.0)
[2025-04-17 04:02] LABS: Alanine Aminotransferase 35 U/L (6-35); Albumin Level 3.4 g/dL (3.5-5.1); Alkaline Phosphatase 127 U/L (38-126); Anion Gap 8 mmol/L (4-12); Aspartate Amino Transferase 70 U/L (14-36); Bilirubin,Total 1.2 mg/dL (0.2-1.3); Blood Urea Nitrogen 7 mg/dL (7-17); Calcium 8.4 mg/dL (8.4-10.2); Carbon Dioxide 20 mmol/L (22-30); Chloride 104 mmol/L (98-107); Estimated CRCL calculation 86 ml/min; Estimated Glomerular Filt Rate > 60; Glucose 151 mg/dL (65-110); Magnesium 2.1 mg/dL (1.6-2.3); Potassium 3.9 mmol/L (3.4-5.0); Sodium 132 mmol/L (137-145); Total Protein 6.1 g/dL (6.3-8.2)
[2025-04-17] MEDS: PIPERACILLIN/TAZOBACTAM SOD 3.375 GM in SODIUM CHLORIDE 0.9% IV 50 ML 100 ML IVPB ×4 (05:00→21:46)
[2025-04-17] MEDS: MAGNESIUM OXIDE 400 MG TABLET FEED TUBE (08:57)
[2025-04-17] MEDS: FOLIC ACID 1 MG TABLET FEED TUBE (08:57)
[2025-04-17] MEDS: THIAMINE HCL 100 MG TABLET FEED TUBE (08:57)
[2025-04-17] MEDS: VITAMIN B COMPLEX CAPSULE 1 CAP FEED TUBE (08:58)
--- NOTE | 2025-04-17 12:37 | P.PNIM_ITS ---
Progress Note: A&P Assessment and Plan (1) Enterocolitis: Code(s): K52.9 - Noninfective gastroenteritis and colitis, unspecified Status: Acute (2) Hypomagnesemia: Code(s): E83.42 - Hypomagnesemia Status: Acute (3) Eating disorder, unspecified: Code(s): F50.9 - Eating disorder, unspecified Status: Acute (4) ETOH abuse: Code(s): F10.10 - Alcohol abuse, uncomplicated Status: Acute (5) Cannabis abuse: Code(s): F12.10 - Cannabis abuse, uncomplicated Status: Acute (6) Depression with anxiety: Code(s): F41.8 - Other specified anxiety disorders Status: Acute (7) Menorrhagia: Code(s): N92.0 - Excessive and frequent menstruation with regular cycle Status: Acute (8) Cardiac arrest with ventricular fibrillation: Code(s): I46.9 - Cardiac arrest, cause unspecified; I49.01 - Ventricular fibrillation Status: Resolved Plan Enterocolitis - CT abdomen pelvis with contrast demonstrates enterocolitis. WBC normal -> 2800 today. Still with n/v/d. CDiff and Stool Cx ordered. Zosyn started. Minimize antiemetic use due to risk of QTc prolongation Follow WBC. Continue abx HypoMag - mag level low at 1.2. Related to eating d/o? QTc 453 Replaced and now normal. Phos level normal. Eating d/o - Patient still with n/v/d. She declines wanting to start TF. She does not like the supplements and clear liquid diet. After discussing with patient, shared decision making about advancing her to regular diet. She states she knows what she can and cannot tolerate. Change to regular diet. Add ice cream supplements. Start TF if she does not start eating soon. Alcohol abuse - She reports her last drink was 3 days prior to admission. She does not appear to be in alcohol withdrawal. CIWA protocol. Depression/Anxiety - Stable mood. Continue buspar. 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 Menorrhagia - Hgb stable. Serum HCG negative. 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 She presents to [facility] on 04/16/2025 with 5 days of nonbloody diarrhea nausea and vomiting. Assuming care. Chart reviewed. Patient still complains of abdominal pain, nausea and vomiting. She continues have diarrheal stools. No melena or hematochezia. She also has had intermittent vaginal bleeding off and on for the past 3 months that is heavy at times. She is not on control. She did have a colonoscopy last year here. Her last alcoholic drink was 04/13/25. She uses marijuana 1x/month Exam Narrative: AF 97.8 105/65 52 16 100% ra Gen - NARD Chest - CTA bilaterally, nml RR CV - RRR S1/S2. Tele showing sinus bradycardia with HR above 45. Abd - Soft, NT/ND, Positive BS Ext - No pedal edema Neuro - Alert and appropriate Psych - Nml mood and affect Skin - Warm and dry Objective Data Vital Signs Vital Signs: Vital Signs - 24 hr 04/16/25 14:44 04/16/25 14:45 04/16/25 15:13 Temperature Pulse Rate 77 77 Pulse Rate [Bilateral Pedal (Dorsalis Pedis) Palpation] Respiratory Rate 16 29 H Blood Pressure 132/83 Pulse Oximetry 100 100 100 Oxygen Delivery Room Air 04/16/25 15:35 04/16/25 15:45 04/16/25 16:00 Temperature Pulse Rate 78 71 Pulse Rate [Bilateral Pedal (Dorsalis Pedis) Palpation] Respiratory Rate 21 H 27 H Blood Pressure Pulse Oximetry 100 98 95 Oxygen Delivery 04/16/25 16:15 04/16/25 16:31 04/16/25 16:59 Temperature Pulse Rate 71 75 82 Pulse Rate [Bilateral Pedal (Dorsalis Pedis) Palpation] Respiratory Rate 19 20 Blood Pressure 106/65 Pulse Oximetry 100 100 99 Oxygen Delivery 04/16/25 17:36 04/16/25 18:05 04/16/25 18:15 Temperature Pulse Rate 83 84 80 Pulse Rate [Bilateral Pedal (Dorsalis Pedis) Palpation] Respiratory Rate 19 20 16 Blood Pressure Pulse Oximetry 98 97 99 Oxygen Delivery 04/16/25 18:33 04/16/25 18:49 04/16/25 19:08 Temperature Pulse Rate 78 68 Pulse Rate [Bilateral Pedal (Dorsalis Pedis) Palpation] Respiratory Rate 19 20 Blood Pressure 95/63 L Pulse Oximetry 99 100 100 Oxygen Delivery 04/16/25 19:16 04/16/25 20:45 04/16/25 23:05 Temperature 98.8 F Pulse Rate 68 70 74 Pulse Rate [Bilateral Pedal (Dorsalis Pedis) Palpation] Respiratory Rate 16 19 17 Blood Pressure 101/64 103/67 Pulse Oximetry 100 98 100 Oxygen Delivery 04/17/25 00:00 04/17/25 00:00 04/17/25 02:00 Temperature Pulse Rate 72 68 Pulse Rate [Bilateral Pedal (Dorsalis Pedis) Palpation] Respiratory Rate Blood Pressure Pulse Oximetry 100 Oxygen Delivery Room Air 04/17/25 03:42 04/17/25 04:00 04/17/25 04:00 Temperature 97.8 F Pulse Rate 87 74 Pulse Rate [Bilateral Pedal (Dorsalis Pedis) Palpation] Respiratory Rate 17 Blood Pressure 100/61 Pulse Oximetry 98 98 Oxygen Delivery Room Air 04/17/25 06:00 04/17/25 08:00 04/17/25 08:00 Temperature 97.7 F Pulse Rate 68 90 Pulse Rate [Bilateral Pedal (Dorsalis Pedis) Palpation] Respiratory Rate 16 Blood Pressure 105/72 105/72 Pulse Oximetry 98 Oxygen Delivery 04/17/25 08:00 04/17/25 08:00 04/17/25 08:57 Temperature Pulse Rate 63 74 Pulse Rate [Bilateral Pedal (Dorsalis Pedis) Palpation] Respiratory Rate Blood Pressure Pulse Oximetry Oxygen Delivery Room Air 04/17/25 10:00 04/17/25 11:57 04/17/25 12:00 Temperature Pulse Rate 48 L Pulse Rate [Bilateral Pedal (Dorsalis Pedis) Palpation] 54 L Respiratory Rate Blood Pressure Pulse Oximetry Oxygen Delivery Room Air Intake/Output Intake/Output: Intake & Output 04/14/25 04/15/25 04/16/25 04/17/25 23:59 23:59 23:59 23:59 Intake Total 1100.0 170 Balance 1100.0 170 Meds/Results Medications: Active Medications Generic Name Dose Route Start Last Admin Trade Name Anne-Marie PRN Reason Stop Dose Admin Acetaminophen 650 mg 04/16/25 22:20 Acetaminophen 325 Mg Tablet FEED TUBE Q4H PRN mild pain 1-3 Buspirone HCl 15 mg 04/17/25 10:00 04/17/25 08:58 Buspirone Hcl 5 Mg Tablet FEED TUBE 15 mg 1000,2000 JU Administration Famotidine 20 mg 04/17/25 21:00 Famotidine 20 Mg Tablet PO HS JU Folic Acid 1 mg 04/17/25 09:00 04/17/25 08:57 Folic Acid 1 Mg Tablet FEED TUBE 1 mg DAILY JU Administration Piperacillin Sod/Tazobactam 50 mls @ 100 mls/hr 04/17/25 04:00 04/17/25 08:58 Sod 3.375 gm/ Sodium Chloride IVPB 100 mls/hr Q6H JU Administration Magnesium Oxide 400 mg 04/17/25 09:00 04/17/25 08:57 Magnesium Oxide 400 Mg Tablet FEED TUBE 400 mg DAILY JU Administration Nadolol 20 mg 04/17/25 09:00 04/17/25 08:57 Nadolol 20 Mg Tablet FEED TUBE 20 mg QAM [facility] Administration Nicotine 1 patch 04/16/25 23:40 04/16/25 23:59 Nicotine (*Pbkc) 14 Mg Patch TRANSDERM 1 patch Q24H JU Administration Rivaroxaban 20 mg 04/17/25 17:00 Rivaroxaban 20 Mg Tablet PO DAILY@1700 [facility] Thiamine HCl 100 mg 04/17/25 09:00 04/17/25 08:57 Thiamine Hcl 100 Mg Tablet FEED TUBE 100 mg DAILY JU Administration Vitamin B Complex 1 cap 04/17/25 09:00 04/17/25 08:58 Vitamin B Complex Capsule FEED TUBE 1 cap QAM JU Administration Radiology Results: ITS Impressions Chest X-Ray 04/16/25 15:45 IMPRESSION: 1: NO ACUTE CARDIOPULMONARY DISEASE. Abdomen/Pelvis CT 04/16/25 16:55 IMPRESSION: Severe probable enterocolitis. Diffuse involvement of the large bowel can be seen with pseudomembranous colitis. Clinical correlation is required. There is no perforation or abscess. Labs Labs: Laboratory Results - last 24 hr 04/16/25 04/16/25 04/16/25 15:13 15:13 15:13 WBC 7.7 RBC 3.86 L Hgb 14.0 Hct 41.1 MCV 106.5 H MCH 36.3 H MCHC 34.1 RDW 13.8 Plt Count 221 MPV 9.7 Immature Gran % (Auto) 0.1 Neut % (Auto) 71.0 Lymph % (Auto) 17.7 L [place] % (Auto) 10.4 H Eos % (Auto) 0.0 Baso % (Auto) 0.8 Lymph # (Auto) 1.36 [place] # (Auto) 0.8 H Eos # (Auto) 0.0 Baso # (Auto) 0.1 Abs Immat Gran (auto) 0.01 Absolute Neuts (auto) 5.5 Absolute Nucleated RBC 0.000 Band Neutrophils % Not Reportable Nucleated RBC % 0.0 Platelet Estimate Adequate Macrocytosis 1+ Schistocytes None seen PT 13.1 INR 1.0 APTT 24.3 Sodium 134 L Potassium 3.7 Chloride 99 Carbon Dioxide 23 Anion Gap 12 BUN 11 Creatinine 0.60 L Estim Creat Clear Calc 85 Estimated GFR > 60 Glucose 116 H Calcium 9.1 Phosphorus 3.2 Cancelled Magnesium 1.2 L Cancelled Total Bilirubin 1.2 AST 102 H ALT 51 H Alkaline Phosphatase 155 H Troponin I < 0.012 Total Protein 7.2 Albumin 4.2 Lipase 70 Serum HCG, Qual Negative Urine Color Urine Appearance Urine pH Ur Specific [place] Urine Protein Urine Glucose (UA) Urine Ketones Ur Blood (Man) Urine Nitrate Urine Bilirubin Urine Urobilinogen Leukocyte Esterase Rfl Urine RBC Urine WBC Ur Squamous Epith Cells Urine Bacteria Urine Casts Urine Opiates Screen Urine Methadone Screen Ur Barbiturates Screen Ur Phencyclidine Scrn Ur Amphetamine Screen U Benzodiazepines Scrn Urine Cocaine Screen U Cannabinoids Screen Ethyl Alcohol < 10 04/16/25 04/17/25 04/17/25 16:02 00:08 02:55 WBC 2.8 L RBC 3.39 L Hgb 12.1 Hct 36.8 L MCV 108.6 H MCH 35.7 H MCHC 32.9 RDW 13.8 Plt Count 187 MPV 10.1 Immature Gran % (Auto) 0.4 Neut % (Auto) 77.6 H Lymph % (Auto) 18.1 L [place] % (Auto) 3.9 Eos % (Auto) 0.0 Baso % (Auto) 0.0 L Lymph # (Auto) 0.51 L [place] # (Auto) 0.1 Eos # (Auto) 0.0 Baso # (Auto) 0.0 Abs Immat Gran (auto) 0.01 Absolute Neuts (auto) 2.2 Absolute Nucleated RBC 0.000 Band Neutrophils % Nucleated RBC % 0.0 Platelet Estimate Macrocytosis Schistocytes PT INR APTT Sodium 131 L 132 L Potassium 3.5 3.9 Chloride 102 104 Carbon Dioxide 22 20 L Anion Gap 7 8 BUN 8 7 Creatinine 0.62 L 0.59 L Estim Creat Clear Calc 82 86 Estimated GFR > 60 > 60 Glucose 144 H 151 H Calcium 8.7 8.4 Phosphorus Magnesium 2.3 2.1 Total Bilirubin 1.2 AST 70 H ALT 35 Alkaline Phosphatase 127 H Troponin I Total Protein 6.1 L Albumin 3.4 L Lipase Serum HCG, Qual Urine Color Dark yellow Urine Appearance Turbid H Urine pH 5.5 Ur Specific [place] 1.027 Urine Protein 2+ H Urine Glucose (UA) Negative Urine Ketones Trace H Ur Blood (Man) 2+ H Urine Nitrate Negative Urine Bilirubin 1+ H Urine Urobilinogen 1.0 Leukocyte Esterase Rfl Trace H Urine RBC 3-5 H Urine WBC 21-50 H Ur Squamous Epith Cells Occasional Urine Bacteria None seen Urine Casts 3-5 Urine Opiates Screen Positive A Urine Methadone Screen Negative Ur Barbiturates Screen Negative Ur Phencyclidine Scrn Negative Ur Amphetamine Screen Negative U Benzodiazepines Scrn Negative Urine Cocaine Screen Negative U Cannabinoids Screen Negative Ethyl Alcohol
[2025-04-17] MEDS: traMADol HCL (*CRX) 25 MG TABLET FEED TUBE ×2 (15:32→21:35)
[2025-04-17] MEDS: SIMETHICONE 80 MG TAB.CHEW FEED TUBE ×2 (15:33→21:57)
--- NOTE | 2025-04-17 16:11 | PC.NURSE ---
On 04/17/25, the student, Sanjuana, provided care and completed [facility] documentation on this patient. I have reviewed the student's documentation and agree with the findings.
[2025-04-17] MEDS: RIVAROXABAN 20 MG TABLET PO (16:50)
[2025-04-17] MEDS: FAMOTIDINE 20 MG TABLET PO (21:58)
[2025-04-17] MEDS: NICOTINE (*PBKC) 14 MG PATCH 1 PATCH TRANSDERM (23:37)
[2025-04-18] VITALS (16 sets, daily range): BP systolic 105–119; BP diastolic 63–76; PULSE 46–66; RESP 17–18; TEMP 36.6–37.1; O2SAT 93–100
[2025-04-18 03:48] LABS: Hematocrit 34.6 % (37.0-47.0); Hemoglobin 11.2 g/dL (12.0-15.0); Immature Granulocyte Percent A 0.2 % (0-0.5); Lymphocytes Absolute Auto 3.04 K/mm3 (0.9-3.2); Mean Corpuscular HGB Conc 32.4 g/dl (32-36); Mean Corpuscular Hemoglobin 35.8 pg (26-34); Mean Corpuscular Volume 110.5 fl (80-100); Nucleated Red Blood Cells Absolute Auto 0.000 K/mm3 (0.0-0.012); Nucleated Red Blood Cells Perc 0.0 % (0.0-0.2); Platelet Count Result 167 k/mm3 (150-375); Red Blood Count 3.13 M/mm3 (4.2-5.4); White Blood Count 5.2 K/mm3 (4.5-10.0)
[2025-04-18 03:58] LABS: Alanine Aminotransferase 31 U/L (6-35); Albumin Level 3.1 g/dL (3.5-5.1); Alkaline Phosphatase 99 U/L (38-126); Anion Gap 4 mmol/L (4-12); Aspartate Amino Transferase 56 U/L (14-36); Bilirubin,Total 0.7 mg/dL (0.2-1.3); Blood Urea Nitrogen 7 mg/dL (7-17); Calcium 8.7 mg/dL (8.4-10.2); Carbon Dioxide 23 mmol/L (22-30); Chloride 107 mmol/L (98-107); Estimated CRCL calculation 75 ml/min; Estimated Glomerular Filt Rate > 60; Glucose 95 mg/dL (65-110); Magnesium 1.9 mg/dL (1.6-2.3); Potassium 3.4 mmol/L (3.4-5.0); Sodium 134 mmol/L (137-145); Total Protein 5.5 g/dL (6.3-8.2)
[2025-04-18 04:14] LABS: Macrocytosis 1+ (NORMAL); Schistocytes None Seen
[2025-04-18] MEDS: PIPERACILLIN/TAZOBACTAM SOD 3.375 GM in SODIUM CHLORIDE 0.9% IV 50 ML 100 ML IVPB ×4 (04:26→20:51)
[2025-04-18 05:08] LABS: Vitamin B12 572.0 pg/mL (239-931)
[2025-04-18] MEDS: MAGNESIUM OXIDE 400 MG TABLET FEED TUBE (09:37)
[2025-04-18] MEDS: THIAMINE HCL 100 MG TABLET FEED TUBE (09:37)
[2025-04-18] MEDS: VITAMIN B COMPLEX CAPSULE 1 CAP FEED TUBE (09:37)
[2025-04-18] MEDS: SIMETHICONE 80 MG TAB.CHEW FEED TUBE ×3 (09:37→20:51)
[2025-04-18] MEDS: traMADol HCL (*CRX) 25 MG TABLET FEED TUBE ×2 (09:38→20:51)
[2025-04-18] MEDS: FOLIC ACID 1 MG TABLET FEED TUBE (09:38)
[2025-04-18] MEDS: POTASSIUM CHLORIDE 20 MEQ PACKET (FOR LIQUID) 40 MEQ FEED TUBE (09:38)
[2025-04-18] MEDS: MEGESTROL ACETATE (*CHEMO) 20 MG TABLET FEED TUBE ×2 (09:39→20:51)
[2025-04-18] MEDS: ACETAMINOPHEN 325 MG TABLET 650 MG FEED TUBE ×2 (15:49→22:17)
[2025-04-18] MEDS: RIVAROXABAN 20 MG TABLET PO (15:50)
--- NOTE | 2025-04-18 16:40 | P.PNIM_ITS ---
Progress Note: A&P Assessment and Plan (1) Enterocolitis: Code(s): K52.9 - Noninfective gastroenteritis and colitis, unspecified Status: Acute (2) UTI (urinary tract infection): Qualifiers: Hematuria presence: without hematuria Urinary tract infection type: acute cystitis Qualified Code(s): N30.00 - Acute cystitis without hematuria Code(s): N39.0 - Urinary tract infection, site not specified Status: Acute (3) Hypomagnesemia: Code(s): E83.42 - Hypomagnesemia Status: Acute (4) Eating disorder, unspecified: Code(s): F50.9 - Eating disorder, unspecified Status: Acute (5) ETOH abuse: Code(s): F10.10 - Alcohol abuse, uncomplicated Status: Acute (6) Cannabis abuse: Code(s): F12.10 - Cannabis abuse, uncomplicated Status: Acute (7) Depression with anxiety: Code(s): F41.8 - Other specified anxiety disorders Status: Acute (8) Menorrhagia: Code(s): N92.0 - Excessive and frequent menstruation with regular cycle Status: Acute (9) Cardiac arrest with ventricular fibrillation: Code(s): I46.9 - Cardiac arrest, cause unspecified; I49.01 - Ventricular fibrillation Status: Resolved Plan Enterocolitis - CT abdomen pelvis with contrast demonstrates enterocolitis. WBC normal -> 2800 -> normal Still with nausea and diarrhea but eating better. CDiff and Stool Cx ordered. Zosyn started. Minimize antiemetic use due to risk of QTc prolongation Continue abx UTI - UA is consistent with UTI. UCx collected. Rocephin started. UCx growing EColi. hx of ESBL EColi a few weeks ago. Follow up on UCx results. Contineu Zosyn since sensitive last time and she is improving. Discussed with PharmD ID HypoMag - mag level low at 1.2. Related to eating d/o? QTc 453 Replaced and now normal. Phos level normal. Eating d/o - Patient still with nausea and diarrhea but eating better. She again declines wanting to start TF. She does like the regular diet and fortified ice cream. Start TF if she does not start eating more by tomorrow. Alcohol abuse - She reports her last drink was 3 days prior to admission. She does not appear to be in alcohol withdrawal. CIWA 0. Okay to stop CIWA protocol. Depression/Anxiety - Stable mood. Continue buspar. 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 Menorrhagia - Hgb stable. Serum HCG negative. 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 She presents to [facility] on 04/16/2025 with 5 days of nonbloody diarrhea nausea and vomiting. Eating better. Still with nausea. Walking in the room. Diarrhea with 4-5 BMs today. Declines to resume TF today. Exam Narrative: AF 98.7 114/70 63 18 100% ra Gen - NARD Chest - CTA bilaterally, nml RR CV - RRR S1/S2. Tele showing sinus bradycardia with HR above 45. Abd - Soft, NT/ND, Positive BS. Gtube site clean, dry and intact. Ext - No pedal edema Neuro - Alert and appropriate Psych - Nml mood and affect Skin - Warm and dry Objective Data Vital Signs Vital Signs: Vital Signs - 24 hr 04/17/25 18:00 04/17/25 19:44 04/17/25 20:00 Temperature 98.3 F Pulse Rate 72 53 L Pulse Rate [Bilateral Pedal (Dorsalis Pedis) Palpation] Respiratory Rate 17 Blood Pressure 108/61 Pulse Oximetry 99 Oxygen Delivery Room Air 04/17/25 20:00 04/17/25 21:00 04/17/25 22:00 Temperature Pulse Rate 48 L 52 L Pulse Rate [Bilateral Pedal (Dorsalis Pedis) Palpation] Respiratory Rate Blood Pressure Pulse Oximetry 99 Oxygen Delivery Room Air 04/17/25 23:04 04/18/25 00:00 04/18/25 00:00 Temperature 97.8 F Pulse Rate 51 L Pulse Rate [Bilateral Pedal (Dorsalis Pedis) Palpation] 47 L Respiratory Rate 17 Blood Pressure 115/69 Pulse Oximetry 97 Oxygen Delivery Room Air 04/18/25 00:00 04/18/25 02:00 04/18/25 04:00 Temperature 97.8 F Pulse Rate 48 L 49 L 55 L Pulse Rate [Bilateral Pedal (Dorsalis Pedis) Palpation] Respiratory Rate 17 Blood Pressure 105/63 Pulse Oximetry 93 Oxygen Delivery 04/18/25 04:00 04/18/25 04:00 04/18/25 04:00 Temperature Pulse Rate 53 L Pulse Rate [Bilateral Pedal (Dorsalis Pedis) Palpation] 46 L Respiratory Rate Blood Pressure Pulse Oximetry Oxygen Delivery Room Air 04/18/25 05:54 04/18/25 08:00 04/18/25 08:00 Temperature Pulse Rate 46 L Pulse Rate [Bilateral Pedal (Dorsalis Pedis) Palpation] 52 L Respiratory Rate Blood Pressure Pulse Oximetry Oxygen Delivery Room Air 04/18/25 08:00 04/18/25 08:05 04/18/25 10:00 Temperature 98.3 F Pulse Rate 64 54 L 57 L Pulse Rate [Bilateral Pedal (Dorsalis Pedis) Palpation] Respiratory Rate 18 Blood Pressure 118/68 Pulse Oximetry 100 Oxygen Delivery 04/18/25 11:33 04/18/25 11:55 04/18/25 11:55 Temperature 98.6 F Pulse Rate 50 L 46 L Pulse Rate [Bilateral Pedal (Dorsalis Pedis) Palpation] Respiratory Rate 18 Blood Pressure 108/65 Pulse Oximetry 99 Oxygen Delivery Room Air 04/18/25 14:00 04/18/25 16:00 04/18/25 16:00 Temperature Pulse Rate 58 L 66 Pulse Rate [Bilateral Pedal (Dorsalis Pedis) Palpation] Respiratory Rate Blood Pressure Pulse Oximetry Oxygen Delivery Room Air 04/18/25 16:17 Temperature 98.7 F Pulse Rate 63 Pulse Rate [Bilateral Pedal (Dorsalis Pedis) Palpation] Respiratory Rate 18 Blood Pressure 114/70 Pulse Oximetry 100 Oxygen Delivery Intake/Output Intake/Output: Intake & Output 04/15/25 04/16/25 04/17/25 04/18/25 23:59 23:59 23:59 23:59 Intake Total 1100.0 1360 460 Balance 1100.0 1360 460 Meds/Results Medications: Active Medications Generic Name Dose Route Start Last Admin Trade Name Freq PRN Reason Stop Dose Admin Acetaminophen 650 mg 04/16/25 22:20 04/18/25 15:49 Acetaminophen 325 Mg Tablet FEED TUBE 650 mg Q4H PRN Administration mild pain 1-3 Buspirone HCl 15 mg 04/17/25 10:00 04/18/25 09:38 Buspirone Hcl 5 Mg Tablet FEED TUBE 15 mg 1000,2000 JU Administration Famotidine 20 mg 04/17/25 21:00 04/17/25 21:58 Famotidine 20 Mg Tablet PO 20 mg HS JU Administration Folic Acid 1 mg 04/17/25 09:00 04/18/25 09:38 Folic Acid 1 Mg Tablet FEED TUBE 1 mg DAILY JU Administration Piperacillin Sod/Tazobactam 50 mls @ 100 mls/hr 04/17/25 04:00 04/18/25 15:50 Sod 3.375 gm/ Sodium Chloride IVPB 100 mls/hr Q6H JU Administration Magnesium Oxide 400 mg 04/17/25 09:00 04/18/25 09:37 Magnesium Oxide 400 Mg Tablet FEED TUBE 400 mg DAILY JU Administration Megestrol Acetate 20 mg 04/18/25 10:00 04/18/25 09:39 Megestrol Acetate (*Chemo) 20 Mg Tablet FEED TUBE 20 mg BID@0800,1999 JU Administration Nadolol 20 mg 04/17/25 09:00 04/18/25 09:38 Nadolol 20 Mg Tablet FEED TUBE 20 mg QAM JU Administration Nicotine 1 patch 04/16/25 23:40 04/17/25 23:37 Nicotine (*Pbkc) 14 Mg Patch TRANSDERM 1 patch Q24H JU Administration Rivaroxaban 20 mg 04/17/25 17:00 04/18/25 15:50 Rivaroxaban 20 Mg Tablet PO 20 mg DAILY@1700 JU Administration Simethicone 80 mg 04/17/25 15:19 04/18/25 15:52 Simethicone 80 Mg Tab.Chew FEED TUBE 80 mg QID PRN Administration Abdominal Distention Thiamine HCl 100 mg 04/17/25 09:00 04/18/25 09:37 Thiamine Hcl 100 Mg Tablet FEED TUBE 100 mg DAILY JU Administration Vitamin B Complex 1 cap 04/17/25 09:00 04/18/25 09:37 Vitamin B Complex Capsule FEED TUBE 1 cap QAM JU Administration Radiology Results: ITS Impressions Chest X-Ray 04/16/25 15:45 IMPRESSION: 1: NO ACUTE CARDIOPULMONARY DISEASE. Abdomen/Pelvis CT 04/16/25 16:55 IMPRESSION: Severe probable enterocolitis. Diffuse involvement of the large bowel can be seen with pseudomembranous colitis. Clinical correlation is required. There is no perforation or abscess. Labs Labs: Laboratory Results - last 24 hr 04/18/25 03:04 WBC 5.2 RBC 3.13 L Hgb 11.2 L Hct 34.6 L MCV 110.5 H MCH 35.8 H MCHC 32.4 RDW 13.4 Plt Count 167 MPV 10.9 H Immature Gran % (Auto) 0.2 Neut % (Auto) 32.7 L Lymph % (Auto) 58.5 H [place] % (Auto) 6.2 Eos % (Auto) 1.2 Baso % (Auto) 1.2 Lymph # (Auto) 3.04 [place] # (Auto) 0.3 Eos # (Auto) 0.1 Baso # (Auto) 0.1 Abs Immat Gran (auto) 0.01 Absolute Neuts (auto) 1.7 Absolute Nucleated RBC 0.000 Band Neutrophils % Not Reportable Nucleated RBC % 0.0 Platelet Estimate Adequate Macrocytosis 1+ Schistocytes None seen Sodium 134 L Potassium 3.4 Chloride 107 Carbon Dioxide 23 Anion Gap 4 BUN 7 Creatinine 0.69 L Estim Creat Clear Calc 75 Estimated GFR > 60 Glucose 95 Calcium 8.7 Phosphorus 3.2 Magnesium 1.9 Total Bilirubin 0.7 AST 56 H ALT 31 Alkaline Phosphatase 99 Total Protein 5.5 L Albumin 3.1 L Vitamin B12 572.0 Folate > 20.0 H
[2025-04-18] MEDS: FAMOTIDINE 20 MG TABLET PO (20:51)
--- NOTE | 2025-04-18 22:11 | PC.NURSE ---
pt is no longer a telemetry pt, LifeVest that was removed on admit has not been reapplied do to it being . Pt said she will have spouse bring in professor of surgery for LifeVest 04/19/2025
[2025-04-18] MEDS: NICOTINE (*PBKC) 14 MG PATCH 1 PATCH TRANSDERM (23:18)
[2025-04-19] VITALS (7 sets, daily range): BP systolic 97–113; BP diastolic 57–80; PULSE 46–71; RESP 16–20; TEMP 36.2–36.6; O2SAT 100
[2025-04-19 04:24] LABS: Anion Gap 7 mmol/L (4-12); Blood Urea Nitrogen 8 mg/dL (7-17); Calcium 8.9 mg/dL (8.4-10.2); Carbon Dioxide 23 mmol/L (22-30); Chloride 105 mmol/L (98-107); Estimated CRCL calculation 87 ml/min; Estimated Glomerular Filt Rate > 60; Glucose 91 mg/dL (65-110); Magnesium 1.8 mg/dL (1.6-2.3); Potassium 3.8 mmol/L (3.4-5.0); Sodium 135 mmol/L (137-145)
[2025-04-19] MEDS: VITAMIN B COMPLEX CAPSULE 1 CAP FEED TUBE (08:20)
[2025-04-19] MEDS: FOLIC ACID 1 MG TABLET FEED TUBE (08:20)
[2025-04-19] MEDS: THIAMINE HCL 100 MG TABLET FEED TUBE (08:20)
[2025-04-19] MEDS: MAGNESIUM OXIDE 400 MG TABLET FEED TUBE (08:20)
[2025-04-19] MEDS: MEGESTROL ACETATE (*CHEMO) 20 MG TABLET FEED TUBE ×2 (08:20→21:34)
[2025-04-19] MEDS: ACETAMINOPHEN 325 MG TABLET 650 MG FEED TUBE ×3 (08:23→18:30)
[2025-04-19] MEDS: PIPERACILLIN/TAZOBACTAM SOD 3.375 GM in SODIUM CHLORIDE 0.9% IV 50 ML 100 ML IVPB ×3 (10:31→22:51)
--- NOTE | 2025-04-19 11:06 | PC.NURSE ---
Report given to BRITTANIE Alejnadre on [facility]. Will transfer with appropriate documentation and personal belongings.
--- NOTE | 2025-04-19 11:18 | PCNFU ---
Nutrition Follow-Up Complete: Inadequate oral intake related to enterocolitis as evidenced by report of nausea and vomiting last 5 days Goal:Diet advancement Improved PO intake when diet advanced Pt meeting goal. New goal of greater than 50% intake of meals Pt current nutrition is Regular, Ensure shakes BID. Nutrition recommendation: change Ensure to nutrition ice cream cups TID, chocolate per pt preference Last recorded weight is 57 kg. Bowel Motility: +BM 04/19 Labs Reviewed: Cr:0.58, Glu:135 Meds Noted: folic acid, Mg, B complex, megace Skin: WNL Additional Notes: Pt on a regular diet, intake improved some and pt reports eating fairly well for her. Does not like the Ensure but prefers the nutrition ice cream cups, chocolate flavor. Changed supplement orders. Monitoring intakes, weights, labs, diet orders, plan of care Follow up in 7 day
--- NOTE | 2025-04-19 11:28 | PC.NURSE ---
This patient, Ester León, was transferred to Replaced by [facility] on 04/19/25 at 1117. Personal belongings sent with patient. Report given to BRITTANIE Alejandre. Appropriate documentation sent with patient.
--- NOTE | 2025-04-19 12:34 | P.PNIM_ITS ---
Progress Note: A&P Assessment and Plan (1) Enterocolitis: Code(s): K52.9 - Noninfective gastroenteritis and colitis, unspecified Status: Acute (2) UTI (urinary tract infection): Qualifiers: Hematuria presence: without hematuria Urinary tract infection type: acute cystitis Qualified Code(s): N30.00 - Acute cystitis without hematuria Code(s): N39.0 - Urinary tract infection, site not specified Status: Acute (3) Hypomagnesemia: Code(s): E83.42 - Hypomagnesemia Status: Acute (4) Eating disorder, unspecified: Code(s): F50.9 - Eating disorder, unspecified Status: Acute (5) ETOH abuse: Code(s): F10.10 - Alcohol abuse, uncomplicated Status: Acute (6) Cannabis abuse: Code(s): F12.10 - Cannabis abuse, uncomplicated Status: Acute (7) Depression with anxiety: Code(s): F41.8 - Other specified anxiety disorders Status: Acute (8) Menorrhagia: Code(s): N92.0 - Excessive and frequent menstruation with regular cycle Status: Acute (9) Cardiac arrest with ventricular fibrillation: Code(s): I46.9 - Cardiac arrest, cause unspecified; I49.01 - Ventricular fibrillation Status: Resolved Plan Enterocolitis - CT abdomen pelvis with contrast demonstrates enterocolitis. WBC normal -> 2800 -> normal Nausea and diarrhea resolving and she is eating better. CDiff and Stool Cx ordered. Zosyn started. Minimize antiemetic use due to risk of QTc prolongation Continue abx UTI - UA is consistent with UTI. UCx collected. Rocephin started. UCx growing EColi. hx of ESBL EColi a few weeks ago. Follow up on UCx results. Continue Zosyn since sensitive last time and she is improving. Discussed with PharmD ID HypoMag - mag level low at 1.2. Related to eating d/o? QTc 453 Replaced and now normal. Follow Eating d/o - Nausea and diarrhea resolving and she is eating better. She again declines wanting to start TF. She does like the regular diet and fortified ice cream. Alcohol abuse - She reports her last drink was 3 days prior to admission. She does not appear to be in alcohol withdrawal. CIWA 0. CIWA protocol stopped. Depression/Anxiety - Stable mood. Continue buspar. 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 Menorrhagia - Hgb stable. Serum HCG negative. 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 She presents to [facility] on 04/16/2025 with 5 days of nonbloody diarrhea nausea and vomiting. Complains of leg and feet pain but chronic from neuropathy. Eating better. Diarrhea slowing down. Will wait to take her TF at home. She is requesting discharge Exam Narrative: AF 97.9 106/80 71 18 100% ra Gen - NARD Chest - CTA bilaterally, nml RR CV - RRR S1/S2 Abd - Soft, NT/ND, Positive BS. Gtube site clean, dry and intact. Ext - No pedal edema Neuro - Alert and appropriate Psych - Nml mood and affect Skin - Warm and dry Objective Data Vital Signs Vital Signs: Vital Signs - 24 hr 04/18/25 14:00 04/18/25 16:00 04/18/25 16:00 Temperature Pulse Rate 58 L 66 Pulse Rate [Bilateral Pedal (Dorsalis Pedis) Palpation] Respiratory Rate Blood Pressure Pulse Oximetry Oxygen Delivery Room Air Fraction of Inspired Oxygen 04/18/25 16:17 04/18/25 17:21 04/18/25 19:56 Temperature 98.7 F 97.8 F Pulse Rate 63 64 61 Pulse Rate [Bilateral Pedal (Dorsalis Pedis) Palpation] Respiratory Rate 18 17 Blood Pressure 114/70 119/76 Pulse Oximetry 100 100 Oxygen Delivery Fraction of Inspired Oxygen 04/18/25 20:00 04/18/25 20:00 04/18/25 21:02 Temperature Pulse Rate 62 Pulse Rate [Bilateral Pedal (Dorsalis Pedis) Palpation] 47 L Respiratory Rate Blood Pressure Pulse Oximetry 100 Oxygen Delivery Room Air Room Air Fraction of Inspired Oxygen 21 04/19/25 00:00 04/19/25 04:00 04/19/25 08:00 Temperature Pulse Rate Pulse Rate [Bilateral Pedal (Dorsalis Pedis) Palpation] 67 46 L 71 Respiratory Rate Blood Pressure 106/80 Pulse Oximetry Oxygen Delivery Fraction of Inspired Oxygen 04/19/25 08:00 04/19/25 08:05 04/19/25 08:20 Temperature 97.9 F Pulse Rate 71 70 71 Pulse Rate [Bilateral Pedal (Dorsalis Pedis) Palpation] Respiratory Rate 18 18 Blood Pressure 106/80 Pulse Oximetry 100 100 Oxygen Delivery Room Air Fraction of Inspired Oxygen 21 Intake/Output Intake/Output: Intake & Output 04/16/25 04/17/25 04/18/25 04/19/25 23:59 23:59 23:59 23:59 Intake Total 1100.0 1360 980 240 Balance 1100.0 1360 980 240 Meds/Results Medications: Active Medications Generic Name Dose Route Start Last Admin Trade Name Freq PRN Reason Stop Dose Admin Acetaminophen 650 mg 04/16/25 22:20 04/19/25 08:23 Acetaminophen 325 Mg Tablet FEED TUBE 650 mg Q4H PRN Administration mild pain 1-3 Buspirone HCl 15 mg 04/17/25 10:00 04/19/25 10:30 Buspirone Hcl 5 Mg Tablet FEED TUBE 15 mg 1000,2000 JU Administration Famotidine 20 mg 04/17/25 21:00 04/18/25 20:51 Famotidine 20 Mg Tablet PO 20 mg HS JU Administration Folic Acid 1 mg 04/17/25 09:00 04/19/25 08:20 Folic Acid 1 Mg Tablet FEED TUBE 1 mg DAILY JU Administration Piperacillin Sod/Tazobactam 50 mls @ 100 mls/hr 04/17/25 04:00 04/19/25 10:31 Sod 3.375 gm/ Sodium Chloride IVPB 100 mls/hr Q6H JU Administration Magnesium Oxide 400 mg 04/17/25 09:00 04/19/25 08:20 Magnesium Oxide 400 Mg Tablet FEED TUBE 400 mg DAILY JU Administration Megestrol Acetate 20 mg 04/18/25 10:00 04/19/25 08:20 Megestrol Acetate (*Chemo) 20 Mg Tablet FEED TUBE 20 mg BID@0800,1999 JU Administration Nadolol 20 mg 04/17/25 09:00 04/19/25 08:20 Nadolol 20 Mg Tablet FEED TUBE 20 mg QAM JU Administration Nicotine 1 patch 04/16/25 23:40 04/18/25 23:18 Nicotine (*Pbkc) 14 Mg Patch TRANSDERM 1 patch Q24H JU Administration Rivaroxaban 20 mg 04/17/25 17:00 04/18/25 15:50 Rivaroxaban 20 Mg Tablet PO 20 mg DAILY@1700 JU Administration Simethicone 80 mg 04/17/25 15:19 04/18/25 20:51 Simethicone 80 Mg Tab.Chew FEED TUBE 80 mg QID PRN Administration Abdominal Distention Thiamine HCl 100 mg 04/17/25 09:00 04/19/25 08:20 Thiamine Hcl 100 Mg Tablet FEED TUBE 100 mg DAILY JU Administration Vitamin B Complex 1 cap 04/17/25 09:00 04/19/25 08:20 Vitamin B Complex Capsule FEED TUBE 1 cap QAM JU Administration Radiology Results: ITS Impressions Chest X-Ray 04/16/25 15:45 IMPRESSION: 1: NO ACUTE CARDIOPULMONARY DISEASE. Abdomen/Pelvis CT 04/16/25 16:55 IMPRESSION: Severe probable enterocolitis. Diffuse involvement of the large bowel can be s een with pseudomembranous colitis. Clinical correlation is required. There is no perforation or abscess. Labs Labs: Laboratory Results - last 24 hr 04/19/25 03:19 Sodium 135 L Potassium 3.8 Chloride 105 Carbon Dioxide 23 Anion Gap 7 BUN 8 Creatinine 0.58 L Estim Creat Clear Calc 87 Estimated GFR > 60 Glucose 91 Calcium 8.9 Magnesium 1.8
[2025-04-19] MEDS: RIVAROXABAN 20 MG TABLET PO (16:20)
[2025-04-19] MEDS: FAMOTIDINE 20 MG TABLET PO (21:34)
[2025-04-19] MEDS: KETOROLAC 15 MG/ML VIAL (*BKC) IV PUSH (22:51)
[2025-04-19] MEDS: NICOTINE (*PBKC) 14 MG PATCH 1 PATCH TRANSDERM (22:52)
[2025-04-20 04:35] VITALS: BP 111/68; PULSE 68; RESP 18; TEMP 36.1; O2SAT 100
[2025-04-20] MEDS: KETOROLAC 15 MG/ML VIAL (*BKC) IV PUSH ×2 (05:20→11:53)
[2025-04-20] MEDS: PIPERACILLIN/TAZOBACTAM SOD 3.375 GM in SODIUM CHLORIDE 0.9% IV 50 ML 100 ML IVPB ×2 (05:25→09:44)
[2025-04-20] MEDS: SIMETHICONE 80 MG TAB.CHEW FEED TUBE (06:19)
[2025-04-20 09:43] VITALS: PULSE 78
[2025-04-20] MEDS: VITAMIN B COMPLEX CAPSULE 1 CAP FEED TUBE (09:43)
[2025-04-20] MEDS: FOLIC ACID 1 MG TABLET FEED TUBE (09:44)
[2025-04-20] MEDS: MEGESTROL ACETATE (*CHEMO) 20 MG TABLET FEED TUBE (09:44)
[2025-04-20] MEDS: THIAMINE HCL 100 MG TABLET FEED TUBE (09:44)
[2025-04-20] MEDS: MAGNESIUM OXIDE 400 MG TABLET FEED TUBE (09:44)
[2025-04-20 14:00] VITALS: BP 120/89; PULSE 80; RESP 14; TEMP 36.6; O2SAT 100
--- NOTE | 2025-04-20 14:46 | PM.DS ---
DS: Admitting Diagnosis Discharge Date 04/20/25 Admitting Diagnosis Nausea, vomiting and diarrhea DS: Discharge Diagnosis Discharge Diagnosis (1) Enterocolitis: Code(s): K52.9 - Noninfective gastroenteritis and colitis, unspecified Status: Acute (2) UTI (urinary tract infection): Qualifiers: Hematuria presence: without hematuria Urinary tract infection type: acute cystitis Qualified Code(s): N30.00 - Acute cystitis without hematuria Code(s): N39.0 - Urinary tract infection, site not specified Status: Acute (3) Hypomagnesemia: Code(s): E83.42 - Hypomagnesemia Status: Acute (4) Eating disorder, unspecified: Code(s): F50.9 - Eating disorder, unspecified Status: Acute (5) ETOH abuse: Code(s): F10.10 - Alcohol abuse, uncomplicated Status: Acute (6) Cannabis abuse: Code(s): F12.10 - Cannabis abuse, uncomplicated Status: Acute (7) Depression with anxiety: Code(s): F41.8 - Other specified anxiety disorders Status: Acute (8) Menorrhagia: Code(s): N92.0 - Excessive and frequent menstruation with regular cycle Status: Acute (9) Cardiac arrest with ventricular fibrillation: Code(s): I46.9 - Cardiac arrest, cause unspecified; I49.01 - Ventricular fibrillation Status: Resolved (10) Tobacco abuse: Code(s): Z72.0 - Tobacco use Status: Acute DS: Summary Hospital Course Reason for hospitalization: 35yo female with PMH cardiac arrest secondary to VFib in 10/2024 placed on nadolol all due to 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 Please see H&P for details. Hospital Course: CT abdomen pelvis with contrast demonstrates enterocolitis. WBC was normal then dropped to 2800 before normalizing again. May have been lab error. She was started on Zosyn. Nausea and diarrhea resolving and she was eating better. CDiff and Stool Cx ordered but able to be collected. Minimize antiemetic use due to risk of QTc prolongation. UA was consistent with UTI. UCx collected. UCx growing EColi. She has a hx of ESBL EColi. We continued Zosyn since she was improving. Discussed with PharmD ID and literature reviewed. UCx did return with EColi ESBL sensitive to Augmentin, meropenem, Zosyn and Macrobid. Mag level low possibly related to her eating d/o. QTc 453. Mag was replaced and serial checks showed stable levels. Her nausea and diarrhea were resolving and she is eating better. She declined wanting to start TF here. She reports her last drink was 3 days prior to admission. No signs/symptoms of alcohol withdrawal. CIWA 0. She was educated about the benefits of abstaining from alcohol use. She has a hx of depression and anxiety. Mood remained stable and we continued buspar. She also has a hx of cardiac arrest with VFib possibly related to congenital QTc prolongation. She is on Xarelto for left ventricular clot. We continued Xarelto and nadolol. She had complaints of continuous vaginal bleeding for the past few months. Hgb dropped from 14 down to 11 with some of this related to being hemoconcentrated. Serum HCG negative. Will have her followup with [facility] [employer] [employer]. She overall did well and was able to be discharged home on 04/20/25. Discharge instructions discussed including medication side effects. All questions answered. Status at Discharge Cognitive/behavioral status at discharge: stable Time Spent with Patient Time attestation: Total time spent providing and/or coordinating discharge services: 35 minutes Time spent: Greater than 30 minutes Exam Narrative: AF 97.9 120/89 80 14 100% ra Gen - NARD Chest - CTA bilaterally, nml RR CV - RRR S1/S2 Abd - Soft, NT/ND, Positive BS. Gtube site clean, dry and intact. Ext - No pedal edema Neuro - Alert and appropriate Psych - Nml mood and affect Skin - Warm and dry Discharge Plan Discharge Attending physician on discharge: Braulio Prince Discharging Clinician: Braulio Prince Anticipated Discharge Date/Time: 04/20/25 15:03 Patient Disposition: Home Activity: as tolerated Diet: regular Discharge Instructions: Continue tube feedings as previously prescribed. Please complete your antibiotic course even if you are starting to feel well. Take precautions to avoid falls. Rise slowly from a lying or sitting position. Pause before standing or walking. Contact your doctor or call 911 and come to the Emergency Room if you have fevers, urinary frequency, burning with voiding or other worrisome symptoms. Avoid NSAIDs (ibuprofen, naproxen, Aleve). Tylenol is safe to take. Follow-up with your primary care provider in 1-2 weeks. Please call for appointment. Follow-up with [facility] [employer] [facility]. Please call for an appointment. Thank you for using [facility] for your health care needs. Patient Instructions: Antibiotic Form, Rivaroxaban (By mouth), How to Stop Smoking (ED) Patient Language: [place] Island[place] Stand Alone Forms: General Discharge Information Follow-up/Referrals: Mo Mitchell MD [Primary Care Provider, Hospitalist] - Call for Appointment Prudencio Esteban MD [Physician, PRECISION MACHINIST] - Call for Appointment Discharge Medications: New amoxicillin-pot clavulanate 875-125 mg tablet 1 tablet PO Q12H Qty: 12 0RF Continued buspirone 15 mg tablet 15 mg feeding tube TID Patient Comments: 10 am then 8 pm normally cyanocobalamin (vitamin B-12) 1,000 mcg tablet 1,000 mcg feeding tube MONTHLY nicotine 14 mg/24 hr patch 24 hour 1 patch transdermal Q24H Xarelto 20 mg Tablet 20 mg PO DAILY@1700 Qty: 30 0RF ergocalciferol (vitamin D2) 1,250 mcg (50,000 unit) capsule 1,250 mcg feeding tube WEEKLY famotidine 20 mg tablet 20 mg PO HS methocarbamol 750 mg tablet 750 mg feeding tube .q4hr Patient Comments: 8 am and 8 pm nadolol 20 mg tablet 20 mg feeding tube DAILY magnesium oxide 400 mg (241.3 mg magnesium) tablet 420 mg feeding tube DAILY Patient Comments: 8 am and 8 pm thiamine HCl (vitamin B1) 100 mg tablet 100 mg feeding tube DAILY folic acid 1 mg tablet 1 mg feeding tube DAILY ferrous sulfate 325 mg (65 mg iron) tablet,delayed release (DR/EC) 325 mg PO BID Rx Instructions: patient administers via feeding tube megestrol 20 mg tablet 20 mg feeding tube BID Patient Comments: 8 am and 8 pm vitamin B complex [Vitamins B Complex] Capsule 1 cap feeding tube QAM Jevity 1.5 Chriss 0.06 gram-1.5 kcal/mL liquid See Rx Instructions .ROUTE .COMPLEX Rx Instructions: 75ml one to two times a day. potassium chloride 10 mEq capsule, extended release 10 meq feeding tube DAILY Qty: 60 0RF Discontinued oxycodone 5 mg tablet 5 mg feeding tube Q8H PRN (Reason: pain) simethicone 80 mg tablet,chewable 80 mg feeding tube QID PRN (Reason: abdominal distention) Patient Comments: after meals and at bedtime multivitamin with folic acid [Thera] 400 mcg tablet 1 tablet PO QAM Rx Instructions: pt administers via feeding tube Date of admission: 04/18/25 16:15 Primary Care Provider: Mo Mitchell Admitting Provider: Tiana Parkinson Attending physician on admission: Tiana Parkinson Condition: Stable Hospitalist MIPS Heart Failure (Exclusion) Patient has history of Heart Transplant or Left Ventricular Assistive Device?: No IF YES, STOP HERE Heart Failure (Qualifier) Patient has current or prior documentation of LVEF less than or equal to 40%, or mod/servere depressed LVSF?: No IF NO, STOP HERE
== END 2025-04-20 15:22 | disposition home or self-care (01) | DRG 249 ==
LOC: ANHED 21:43 → ANHIMU 22:41 → ANH2MED 04-19 13:26 → ANHIMU 04-23 10:44
PROVIDERS: Nurse Practitioner Family; Admitting Provider General Practice; Emergency Provider Student in an Organized Health Care Education/Training Program; PCP Internal Medicine; Visit Provider Internal Medicine
DX: K52.9 Noninfective gastroenteritis and colitis, unspecified (principal); N39.0 Urinary tract infection, site not specified; B96.20 Unspecified Escherichia coli [E. coli] as the cause of diseases classified elsewhere; E83.42 Hypomagnesemia; E50.9 Vitamin A deficiency, unspecified; F10.10 Alcohol abuse, uncomplicated; F12.10 Cannabis abuse, uncomplicated; E87.1 Hypo-osmolality and hyponatremia; F41.8 Other specified anxiety disorders; R00.1 Bradycardia, unspecified; F50.82 Avoidant/restrictive food intake disorder; G62.9 Polyneuropathy, unspecified; N92.0 Excessive and frequent menstruation with regular cycle; E27.40 Unspecified adrenocortical insufficiency; F17.210 Nicotine dependence, cigarettes, uncomplicated; Z16.12 Extended spectrum beta lactamase (ESBL) resistance; Z79.01 Long term (current) use of anticoagulants; Z86.79 Personal history of other diseases of the circulatory system
CPT/HCPCS: 36415; 71045; 74177; 80048; 80053; 80307; 81001; 82077; 82607; 82746; 83690; 83735; 84100; 84484; 84703; 85025; 85610; 85730; 87086; 87186; 93005; 96361; 96365; 96366; 96367; 96375; 99285; A9270; G0378; G0379; J0780; J1100; J1885; J2270; J2543; J3475; J3480; J7030; J7040; Q9967

== ENCOUNTER 2025-04-26 08:32 | Observation (INO) | payer OTHER, SELFPAY ==
[2025-04-26] VITALS (7 sets, daily range): BP systolic 106–122; BP diastolic 58–94; PULSE 71–92; RESP 18–20; TEMP 36.4–36.7; O2SAT 96–100; BMI 25.1
--- NOTE | ~2025-04-26 | CT_ITS ---
Ester Thomas Romelia EXAMINATION: CT abdomen pelvis w con COMPARISON: None HISTORY: n/v/d/ ab pain TECHNIQUE: Axial images were obtained through the abdomen, pelvis post administration of IV contrast. Oral contrast was also administered. Coronal reconstruction images were obtained from the axial views. CT scan performed using dose optimization techniques including the following automated exposure control; adjustment of mA and/or kV; use of iterative reconstruction technique. Automatic exposure control was used to reduce radiation dose. Permanent radiation dose record is archived to PACS. FINDINGS: CT abdomen: LUNG BASES: The lung bases are clear. The visualized portions of the heart and pericardium are unremarkable. LIVER: Mild hepatic steatosis. Portal vein patent. No intrahepatic biliary duct dilatation. SPLEEN: Punctate calcified splenic granulomas.. KIDNEYS: Right Kidney: Unremarkable. No calculi. No hydronephrosis. Left Kidney: Unremarkable. No calculi. No hydronephrosis ADRENAL GLANDS: Unremarkable. PANCREAS: Unremarkable. GALLBLADDER/BILIARY: Mild distention of the gallbladder. STOMACH AND ESOPHAGUS: Gastrostomy tube noted in appropriate location. BOWEL/MESENTERY: Mild hyperemia noted of the rectum and sigmoid colon with multiple fluid-filled loops of large bowel. Appendix normal. Mesentery normal. No dilated small bowel loops. ADENOPATHY/RETROPERITONEUM: No lymphadenopathy. AORTA/VASCULATURE: Normal caliber aorta. FREE FLUID OR FREE AIR: None. CT pelvis: SOLID ORGANS/REPRODUCTIVE: No adnexal mass. BLADDER: Circumferential thickening of the bladder wall noted with mild mucosal hyperemia. OSSEOUS STRUCTURES: No acute osseous abnormality.No suspicious lesions. OVERLYING SOFT TISSUES: Unremarkable. IMPRESSION: 1. Mild colitis probably infectious in nature. 2. Mild cystitis. Reviewed, dictated and finalized at location P.
--- OUTSIDE RECORDS SUMMARY | 2025-04-26 08:37 | XMS_ITS | Clinical Summary ---
Author Organization [facility] dipika [facility] Address [address] [place] [address] [place] [address] Care Team Providers Care Network Solutions Architect Name Role Phone Unavailable Primary Care Provider [...]
--- OUTSIDE RECORDS SUMMARY | 2025-04-26 08:37 | XMS_ITS | Clinical Summary ---
Author Organization [facility] Address [address] [place] [address] Care Team Providers Care Inventory Control Coordinator Name Role Phone Mo Mitchell MD Primary Care Provider [phone] Allergies Active Allergy Reactions Criticality Noted Date [...] for diarrhea 100 mL 5 Active multivit plhavvvq-zpvo-Y A-calcium (THERA-M) 9 mg iron-400 mcg tabletIndicatio [...] daily until blood thinner is received from grinding wheel facer office Indications: treatment to prevent a heart [...] Type Department Care Team Description 04/02/2025 Telephone [facility] Cardiothoracic Surgery [address] [facility] 8th Floor [address] Room [address] [phone] Bo Fried MD 03/12/2025 4:03 PM CDT - 03/12/2025 11:59 PM CDT Hospital Encounter [facility] Cardiac Diagnostic Lab [address] [facility] 8th [place] [address] Mass of left cardiac ventricle Discharge Disposition: Discharge to home or self care 02/22/2025 Home Care Visit [facility] - [address] [place] [address] Nayely Pedroza, BRITTANIE SN VIRTUAL NON OASIS DISCHARGE 02/20/2025 Home Care Visit [address] [place] [address] Nayely Pedroza, BRITTANIE TELEPHONE ENCOUNTER 02/19/2025 Home Care Visit [address] [place] [address] Nayely Pedroza, BRITTANIE TELEPHONE ENCOUNTER 02/15/2025 Orders Only [facility] Cardiothoracic Surgery [address] [facility] 8th Floor [address] Room [address] [place] [phone] Bo Fried MD Mass of left cardiac ventricle (Primary Dx) 02/15/2025 Telephone [facility] Home Care Services [address] [facility] [address] [place] [phone] Unknown, Notinfile 02/14/2025 Telephone [facility] Home Care Services [address] [facility] [address] [place] [phone] Slaas, Summer 02/13/2025 Orders Only [facility] Cardiothoracic Surgery [address] [facility] 8th Floor [address] Room [address] [place] [phone] Bo Fried MD Mass of left cardiac ventricle (Primary Dx) 02/12/2025 2:30 PM CDT Home Care Visit [place] [address] [address] [place] [address] Nayely Pedroza, BRITTANIE SN HOME VISIT 02/07/2025 10:00 AM CDT Home Care Visit [address] [place] [address] Isabelle Campbell, OT OT INITIAL EVALUATION 02/07/2025 9:00 AM CDT Home Care Visit [address] [place] [address] Pia Swan RN SN HOME VISIT 02/07/2025 Telephone [facility] Medicine Infectious Diseases [address] [facility] [address] [place] [phone] Rosangela Simental CMA 02/06/2025 2:00 PM CDT Home Care Visit [place] [address] [address] [place] [address] Thang Solorzano, PT PT INITIAL EVALUATION 02/05/2025 Home Care Visit [place] [address] [address] [place] [address] Pia Moon, RN TELEPHONE ENCOUNTER 02/01/2025 Telephone [facility] Cardiology [facility] 8th Floor [address] [place] [phone] Scheduling Appointments 01/31/2025 2:00 PM CDT Home Care Visit [place] [address] [address] [place] [address] Nayely Pedroza, BRITTANIE SN OASIS RECERTIFICATION 01/31/2025 Plan of Care Documentation [place] [address] [address] [place] [address] 01/29/2025 Home Care Visit [place] [address] [address] [place] [address] Nayely Pedroza, BRITTNAIE TELEPHONE ENCOUNTER 01/28/2025 Home Care Visit [place] [address] [address] [place] [address] Nayely Pedroza, BRITTANIE TELEPHONE ENCOUNTER 01/24/2025 9:40 AM CDT Office Visit [facility] Medicine Infectious Diseases [address] [facility] [address] [place] [address] Dorothea Stephen, POULTICE MACHINE OPERATOR MSSA bacteremia (Primary Dx) from Last 3 Months Immunizations Immunization Administration [...] In the past 12 months has e [employer], gas, oil, or water [employer] threatened to shut off services in your [...] often do you attend chur ch or episcopalian services? Never 11/29/2024 Do you belong to any clubs o r organizations such as mu-ism groups, unions, fraternal or athletic groups, or [...] any time in the past 12 m [facility], were you homeless or living in a skilled nursing (including now)? No 11/29/2024 Personal Safety Answer Date Recorded Have you ever been in or are you currently in a harmful physical or emotional relationship or is someone making you feel afraid or unsafe? Denies 10/31/2024 Comments No Sex and Gender Information Value Date Recorded Sex Assigned at Not on file Legal Sex Female 8:06 PM MANUAL PLATE FILLER Gender Identity Not on file Sexual Orientation [...] PM CDT Mass of left cardiac ventricle HEPATITIS PANEL, ACUTE Routine 2:31 PM CDT THINPREP TIS PAP REFLEX HPV MRNA E6/E7, CHLAMYDIA/N.GONORRHOEA E Routine 09/14/2016 12:56 PM MANUAL PLATE FILLER from Last 3 Months or Most Recently Relevant to Health Maintenance Results * TRANSTHORACIC ECHO (TTE) COMPLETE W DOPPLER/CF W CONTRAST (03/12/2025 5:26 PM CDT) EF Mod BP 59 % CONS SCIMAGE Anatomical Region Laterality Modality Ultrasound 03/12/2025 4:09 PM CDT Narrative 03/13/2025 8:00 AM CDT [facility] [place] [address] Transthoracic Echocardiographic Report Patient Name: HAYLEY LEÓN Marhta : 1990 (35y 1m) Gender: F Study Date: 03/12/2025 04:09:57 PM Ht(Inch): 60 Wt(Lb): 110.01 BSA: 1.45 Volleyball Coach: Sofia Campos RDCS Location: [facility] Order Provider: BO FRIED Heart Rate: 68 [...] Note Santi Mcelroy MD - 03/13/2025 [facility] [place] [address] Transthoracic Echocardiographic Report Patient Name: HAYLEY LEÓN L : 1990 (35y 1m) Gender: F Study Date: 03/12/2025 04:09:57 PM Ht(Inch): 60 Wt(Lb): 110.01 BSA: 1.45 Volleyball Coach: Sofia Campos RDCS Location: [facility] Order Provider:BO FRIED Heart Rate: 68 BMI: [...] LA Length 4C 4.62 cm MV Decel Wmdk727.79 msec [ 104.00 - 258.00 ] LA [...] Asc Ao Index1.61 cm/m2 Electronically Signed By: aSnti Mcelroy MD 03/13/2025 8:00:20 AM CDT Bo Oziel Fried MD CV ECHO PROCEDURES Final Result * Hepatitis panel, acute Blood (11/03/2024 2:31 PM CDT) Pathologist [facility] Hep A IgM Nonreactive Nonreactive Hep B core IgM Nonreactive Nonreactive [facility] Hep C Ab Nonreactive Nonreactive [facility] Comment:Antibodies to HCV no t detected. Does NOT exclude the possibility of recent exposure to HCV. Current interpretive data was last revised on 22 HepBsAg Nonreactive Nonreactive [facility] Blood 11/03/2024 2:31 PM CDT 11/03/2024 2:38 PM CDT us Mar George MD LAB MICROBIOLOGY - GENERAL ORDERABLES Final Result [facility] Department of Laboratories [place], [place] [id number] * THINPREP TIS PAP REFLEX HPV mRNA E6/E7, CHLAMYDIA/N.GONORRHOEAE (09/14/2016 12:56 PM MANUAL PLATE FILLER) Pathologist [facility] CLINICAL INFORMATION [facility] HISTORICAL RESULTS Comment: LMP: [facility] HISTORICAL RESULTS PREV. PAP: [facility]IST[facility] RESULTS Comment:2011 PREV. BX: [facility] HISTORICAL RESULTS Comment:UNKNOWN SOURCE: [facility] HISTORICAL RESULTS Comment:Cervix, Endocervix STATEMENT OF ADEQUACY: [facility] HISTORICAL RESULTS Comment:Satisfactory for savana luation. Endocervical/transformation zone component present. INTERPRETATION/RES ULT: [facility] HISTORICAL RESULTS Comment:Negative for intraep ithelial lesion or malignancy. COMMENT: [facility] HISTORICAL RESULTS Comment:This Pap test has be en evaluated with computer assisted technology. OPTIC FIBRE DRAWER: [facility] HISTORICAL RESULTS Comment:YQ, CT(ASCP) CT scre ening location: [place] [address] [place] [address] C. trachomatis RNA NOT DETECTED NOT DETECTED [facility] HISTORICAL RESULTS N. gonorrhoeae RNA NOT DETECTED NOT DETECTED [facility] HISTORICAL RESULTS COMMENT [facility] HISTORICAL RESULTS Comment: This test was performed using the APTIMA COMBO2 Assay ([employer] The analytical performance characteristics of this assay, when used to test [employer] specimens have been determined by [facility]. 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
--- OUTSIDE RECORDS SUMMARY | 2025-04-26 08:37 | XMS_ITS | Encounter Summary ---
Author Organization [facility] Facility Care Team Providers Care Sorting Machine Attendant Name Role Phone Christian Merritt MD Primary Care Provider [phone] Mo Mitchell MD Primary Care Provider [phone] Neeta Ott RN Unavailable [phone] Encounter Details Date Type Department Care Team (Latest Contact Info) Description 12/09/2016 Orders Only [facility] Provider, MD Serge [address] [place] [address] Social History Tobacco Use Types Packs/Day Years Used Date Smoking Tobacco: Never Assessed Comments Unknown Sex and Gender Information Value Date Recorded Sex Assigned at Not on file Legal Sex Female 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
--- OUTSIDE RECORDS SUMMARY | 2025-04-26 08:37 | XMS_ITS | Encounter Summary ---
Author Organization [facility] Facility Care Team Providers Care Parole Or Probation Officer Name Role Phone Christian Merritt MD Primary Care Provider [phone] Mo Mitchell MD Primary Care Provider [phone] Neeta Ott RN Unavailable [phone] Encounter Details Date Type Department Care Team (Latest Contact Info) Description 12/06/2016 Orders Only [facility] Provider, MD Serge [address] [place] [address] Social History Tobacco Use Types Packs/Day Years Used Date Smoking Tobacco: Never Assessed Comments Unknown Sex and Gender Information Value Date Recorded Sex Assigned at Not on file Legal Sex Female 8:06 PM STAFF DEVELOPMENT COORDINATOR RN Gender Identity Not on file Sexual Orientation [...] documented as of this encounter Care Teams Parole Or Probation Officer Relationship Specialty Start Date End Date Christian Merritt MD PCP - General Emergency Medicine 06/10/22 10/30/24 Mo Mitchell MD [address] [place] [address] PCP - General Internal Medicine 10/31/24 Neeta Ott, RN [address] [address] [facility] Outpatient Radon Inspector 11/29/24 12/06/24 documented as of this encounter
--- OUTSIDE RECORDS SUMMARY | 2025-04-26 08:38 | XMS_ITS | Encounter Summary ---
Author Organization [facility] Facility Care Team Providers Care Building Carpenter Helper Name Role Phone Christian Merritt MD Primary Care Provider [phone] Mo Mitchell MD Primary Care Provider [phone] Neeta Ott RN Unavailable [phone] Encounter Details Date Type Department Care Team (Latest Contact Info) Description 01/05/2017 Orders Only [facility] CLINCONV Provider, MD Serge [address] [place] [address] Social History Tobacco Use Types Packs/Day Years Used Date Smoking Tobacco: Never Assessed Comments Unknown Sex and Gender Information Value Date Recorded Sex Assigned at Not on file Legal Sex Female 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
--- OUTSIDE RECORDS SUMMARY | 2025-04-26 08:38 | XMS_ITS | Patient Health Record ---
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 Stress is when someone feels tense, nervous, anxious, or can\t sleep at night because their mind is troubled Somewhat In the past year have you sp ent more than 2 nights in a row in a fdc, group home, custodial center, or juvenile correctional facility? No Are [...] Status W/U Status Risk Notes Problem Hypomagnesemia (917278962) Hypomagnesemia (E83.42) Active confirmed Problem Tobacco user (037649404) Nicotine dependence, unspecified, uncomplicated (F17.200) Active confirmed Problem Eating disorder (13461507) Eating disorder, unspecified (F50.9) Active confirmed Problem Prolonged QT interval (888359188) Prolonged QT interval (I45.81) Active confirmed Problem Peripheral neuropathy (741954807) Peripheral neuropathy (G62.9) Active confirmed Problem Chronic pain (83391209) Chronic pain (G89.29) Active confirmed Problem Unsteady gait (69531210) Unsteady gait (R26.81) Active confirmed Problem Deficiency of macronutrients (disorder) (762410268) Protein-calorie malnutrition, unspecified severity (E46) Active confirmed Problem Alcohol related disorder (F10.99) Active confirmed Vital Signs Heart Rate 99 /min 03/07/2025 Respiratory Rate 16 /min 03/07/2025 Blood pressure diastolic 80 mm Hg 03/07/2025 Oximetry 98 % 03/07/2025 Height 61 in 03/07/2025 Blood pressure systolic 110 mm Hg 03/07/2025 Weight 106.4 lbs 03/07/2025 BMI 20.1 kg/m2 03/07/2025 Encounters Encounter Location Date Provider Diagnosis [address] [place] [address] 10/01/2024 Mo Mitchell Protein-calorie malnutrition, unspecified severity E46 ; Peripheral neuropathy G62.9 ; Eating disorder, unspecified F50.9 and Nicotine dependence, unspecified, uncomplicated F17.[address] [place] [address] 12/05/2024 Mo Mitchell Torsades de pointes I47.21 ; Prolonged QT interval I45.81 ; Chronic pain G89.29 ; Alcohol related disorder F10.99 ; Peripheral neuropathy G62.9 ; Protein-calorie malnutrition, unspecified severity E46 ; Unsteady gait R26.81 and Opioid use F11.[address] [place] [address] 03/07/2025 Mo Mitchell Hypokalemia E87.6 ; Hypomagnesemia E83.42 ; Prolonged QT interval I45.81 ; Protein-calorie malnutrition, unspecified severity E46 ; Peripheral neuropathy G62.9 ; Alcohol related disorder F10.99 ; Nausea R11.0 and Diarrhea R19.[address] [place] [address] 03/07/2025 Ileana Duncan [facility] [address] [facility] [place] [address] 11/23/2024 Mo Mitchell [facility] [address] [place] [address] 12/03/2024 Mo Mitchell [facility] [address] [facility] [place] [address] 12/03/2024 Mo Mitchell [address] [place] [address] 12/05/2024 Mo Mitchell [address] [place] [address] 12/19/2024 Mo Mitchell [facility] [address] [place] [address] 12/28/2024 Mo Mitchell [facility] [address] [place] [address] 01/02/2025 Mo Mitchell Hypokalemia E87.6 ; Alcohol related disorder F10.99 and Fatigue R53.83 [facility] [address] [place] [address] 01/08/2025 Mo Mitchell [facility] [address] [place] [address] 01/10/2025 Mo Mitchell [facility] [address] [facility] [place] [address] 01/16/2025 Mo Mitchell [facility] [address] [facility] [place] [address] 01/18/2025 Mo Mitchell [facility] [address] [facility] [place] [address] 02/01/2025 Mo Mitchell [facility] [address] [facility] [place] [address] 02/13/2025 Mo Mitchell [facility] [address] [place] [address] 02/22/2025 Mo Mitchell [address] [place] [address] 06/13/2024 Mo Mitchell [address] [place] [address] 06/14/2024 Mo Mitchell Eating disorder, unspecified F50.[address] [place] [address] 06/18/2024 Mo Mitchell [address] [place] [address] 06/27/2024 Mo Mitchell [address] [place] [address] 07/27/2024 Mo Mitchell [address] [address] 07/30/2024 Mo Mitchell [address] [address] 09/25/2024 Mo Mitchell [address] [address] 10/15/2024 Mojey Mitchell Eating disorder, unspecified F50.9 and Peripheral neuropathy G62.[address] [address] 01/23/2025 Mo Mitchell [address] [address] 02/28/2025 Mo Mitchell Chronic pain G89.[address] [address] 03/10/2025 Mo Mitchell [address] [address] 03/14/2025 Mo Mitchell [address] [address] 03/20/2025 Mo Mitchell Eating disorder, unspecified F50.[address] [address] 03/22/2025 Mo Mitchell [address] [place] [address] 03/30/2025 Mo Mitchell Peripheral neuropath y G62.[address] [place] [address] 04/07/2025 Mo Mitchell Eating disorder, unspecified F50.9 and Hypokalemia E87.[address] [place] [address] 04/13/2025 Mo Mitchell Hypokalemia E87.6 an d [...] (ICD-10 - R19.7) Etiology unclear 03/07/2025 Other Fabrication Inspector met with Ester León to assist in working on building skills to help the consumer gain confidence in their recovery journey. The telegraphic typewriter installer practiced with Ester León implementing problem solving skills to help facilitate exploration of options and understanding of life triggers that impact substance use (explain options and life triggers). The telegraphic typewriter installer encouraged and engaged in critical thinking of how to use natural supports and coping skills to help manage symptoms in the moment. Fabrication Inspector also worked on modeling and practicing with [...] Insured Coverage Start Date Coverage End Date [address] [phone] [id number] Ester León Self - patient is the insured 4 Medical (General) History Surgical History Surgery Date(Month/Year) peg tube 10/2023 child 2016 Hospitalization History Reason Date(Month/Year) [place] 1 night and 4 nights 02/2025 [facility] Cardiac arrest 10/2024 [facility]. infection 07/2024 [facility] 02/04/17
--- NOTE | 2025-04-26 08:45 | ED.GENADULT ---
HPI - General Adult General Chief complaint: Nausea/Vomiting/Diarrhea Stated complaint: vomiting Time Seen by Provider: 04/26/25 08:33 History of Present Illness HPI narrative: 35-year-old female with history of mitral prolapse, neuropathy and cardiac arrest approximately 5 months ago. Currently on Xarelto. Patient presented to the emergency department approximately 1 week ago for nausea vomiting diarrhea and decreased p.o. intake. Patient was admitted for 4 days. Patient states that she did feel improved at time of discharge but over the last few days began having worsening symptoms. Patient presents ED complaining of nausea vomiting diarrhea and abdominal pain. Does have her LifeVest in place. Related Data Home Medications ?Medication ?Instructions ?Recorded ?Confirmed ?Last Taken ?Type ferrous sulfate 325 mg (65 mg 325 mg PO BID 03/28/24 04/26/25 04/13/25 08:00 History iron) tablet,delayed release 325 mg folic acid 1 mg tablet 1 mg feeding tube DAILY 03/28/24 04/26/25 04/13/25 08:00 History 1 mg megestrol 20 mg tablet 20 mg feeding tube BID 03/28/24 04/26/25 04/13/25 20:00 History 20 mg thiamine HCl (vitamin B1) 100 mg 100 mg feeding tube DAILY 03/28/24 04/26/25 04/13/25 20:00 History tablet 100 mg vitamin B complex (Vitamins B 1 cap feeding tube QAM 03/28/24 04/26/25 04/13/25 08:00 History Complex capsule) 1 cap lactose-reduced food with fiber See Rx Instructions .Route .COMPLEX 08/07/24 04/26/25 01/26/25 History 0.06 gram-1.5 kcal/mL oral liquid (Jevity 1.5 Chriss) Held on 04/26/25. Instructions: Order Change buspirone 15 mg tablet 15 mg feeding tube TID 01/08/25 04/26/25 04/13/25 10:00 History 15 mg cyanocobalamin (vitamin B-12) 1,000 mcg feeding tube MONTHLY 01/08/25 04/26/25 04/13/25 08:00 History 1,000 mcg tablet 1,000 mcg Held on 04/26/25. Instructions: Patient no longer taking nicotine 14 mg/24 hr daily 1 patch transdermal Q24H 01/08/25 04/26/25 02/25/25 History transdermal patch Held on 04/26/25. Instructions: Patient smokes ergocalciferol (vitamin D2) 1,250 1,250 mcg feeding tube WEEKLY 02/13/25 04/26/25 02/25/25 History mcg (50,000 unit) capsule famotidine 20 mg tablet 20 mg PO HS 02/13/25 04/26/25 04/13/25 20:00 History 20 mg magnesium oxide 400 mg (241.3 mg 420 mg feeding tube DAILY 02/13/25 04/26/25 04/13/25 08:00 History magnesium) tablet 400 mg Held on 04/26/25. Instructions: Order Change methocarbamol 750 mg tablet 750 mg feeding tube .q4hr 02/13/25 04/26/25 04/13/25 20:00 History 750 mg nadolol 20 mg tablet 20 mg feeding tube DAILY 02/13/25 04/26/25 04/13/25 08:00 History 20 mg magnesium oxide 420 mg tablet 420 mg PO DAILY 04/26/25 04/26/25 Unknown History Allergies Allergy/AdvReac Type Severity Reaction Status Date / Time latex Allergy Rash Verified 04/26/25 08:42 melatonin AdvReac Mild chest Verified 04/26/25 08:42 heaviness Review of Systems Review of Systems: All systems reviewed & are unremarkable except as noted in HPI and below PMFSH Past Medical History Medical History Cardiac arrest with ventricular fibrillation October 2024 Adrenal insufficiency Depression with anxiety Avoidant/restrictive food intake disorder Cannabis abuse Elevated LFTs Mitral valve prolapse Surgical History Surgical History History of percutaneous endoscopic gastrostomy Family History Family History Mother Heart attack Mitral valve prolapse Grandparent Cancer Grandparent Mitral valve prolapse Social History Social History Social History: Surrogate medical decision maker: Jorge Luis Centeno, significant other. Code status: Full code. Smoking packs per day: 0.5 Smoking cigarettes per day: 10.0 Years smoked: 20 Smoking pack-years: 10.00 Smoking status: Current every day smoker Tobacco type: cigarettes Alcohol intake: current Drinks per week: 5 Alcohol use details: States she drinks 1 pint a week Substance use: never Substance use type: marijuana Other substance usage details: weekly Last use: 01/22/2025 Do You Feel Safe in your Home?: Yes Lack of Transportation: No Lack of Food: Never True Current Housing: I Have Housing Concerned About Future Housing: No Difficulty Paying Gas/Electric Bills: No Difficulty Paying for Meds: No Currently Unemployed: No Education: High School Diploma/GED Difficulty w/ Childcare or Family Care: No Living arrangements: with family Additional living arrangements comments: with 7 year old son and jane? Occupation/Education: unemployed Spiritual care concerns: No Agree to blood products: Yes Exam Narrative: APPEARANCE: Ill-appearing HEAD: normocephalic, atraumatic. EYES: PERRLA/EOMI, conjunctivae clear. NOSE: Normal no drainage EARS:TMS clear with good light reflex. THROAT: Pharynx clear, no exudate. NECK: Supple. No adenopathy, no masses. RESPIRATORY: Airway patent, respirations nonlabored. Clear to auscultation bilaterally, no rales, rhonchi, wheezing. CARDIOVASCULAR: Regular rate and rhythm without murmurs rubs or gallops. ABDOMINAL: Diffuse abdominal tenderness MUSCULOSKELETAL: Moves all extremities. Strength/ROM intact, No edema, No calf tenderness. NEURO: Alert. Cranial nerves II through XII intact. Good gait. Good coordination SKIN: Warm, dry. Normal Color Course Vital Signs Vital signs: Vital Signs Temperature 98.1 F 04/26/25 08:38 Pulse Rate 83 04/26/25 08:38 Respiratory Rate 18 04/26/25 08:38 Blood Pressure 114/94 H 04/26/25 08:38 Pulse Oximetry 96 04/26/25 08:38 Oxygen Delivery Room Air 04/26/25 08:38 Temperature 98.1 F 04/26/25 08:38 Pulse Rate 77 04/26/25 16:00 Respiratory Rate 18 04/26/25 10:57 Blood Pressure 109/72 04/26/25 10:57 Pulse Oximetry 99 04/26/25 10:57 Oxygen Delivery Room Air 04/26/25 08:38 Medical Decision Making MDM Narrative Medical decision making narrative: [age] old female presents to the emergency department for evaluation for nausea vomiting decreased p.o. intake. Patient is currently afebrile with no leukocytosis and hemoglobin of 15.1. Patient did have a elevated lactic acid and a low magnesium. Patient was treated with 2 g of magnesium sulfate and a L of lactated Ringer's. UA was negative for infection. Patient was negative for influenza RSV and for COVID. CT scan does show evidence of infectious colitis. Patient was started on Rocephin and Flagyl in the emergency department. Patient feels too ill to be discharged to home. Patient is ill-appearing emergency department. Case was discussed with hospitalist patient will be accepted for admission. Patient was updated the results of the workup patient was comfortable the plan for admission. Patient does not feel to be discharged home. Differential Diagnosis Differential Diagnosis: Colitis, diverticulitis, hypomagnesemia, hypokalemia, COVID, RSV, influenza, pneumonia, UTI, failure to thrive Vital Signs Vital Signs: Vital Signs Temperature 98.1 F 04/26/25 08:38 Pulse Rate 83 04/26/25 08:38 Respiratory Rate 18 04/26/25 08:38 Blood Pressure 114/94 H 04/26/25 08:38 Pulse Oximetry 96 04/26/25 08:38 Oxygen Delivery Room Air 04/26/25 08:38 Temperature 98.1 F 04/26/25 08:38 Pulse Rate 77 04/26/25 16:00 Respiratory Rate 18 04/26/25 10:57 Blood Pressure 109/72 04/26/25 10:57 Pulse Oximetry 99 04/26/25 10:57 Oxygen Delivery Room Air 04/26/25 08:38 Lab Data Lab results reviewed: Yes I reviewed the patient's lab results. 04/26/25 08:57 04/26/25 08:57 Labs: Lab Results 04/26/25 04/26/25 04/26/25 Range/Units 08:57 09:04 09:09 WBC 4.7 (4.5-10.0) K/mm3 RBC 4.25 (4.2-5.4) M/mm3 Hgb 15.1 H D (12.0-15.0) g/dL Hct 43.5 (37.0-47.0) % MCV 102.4 H (80-100) fl MCH 35.5 H (26-34) pg MCHC 34.7 (32-36) g/dl RDW 12.7 (11.5-14.5) % Plt Count 214 (150-375) k/mm3 MPV 10.2 (7.4-10.4) fl Immature Gran % (Auto) 0.2 (0-0.5) % Neut % (Auto) 48.7 (45.5-73.1) % Lymph % (Auto) 38.5 (18.3-44.2) % [place] % (Auto) 9.6 H (2.6-8.5) % Eos % (Auto) 1.5 (0-4.4) % Baso % (Auto) 1.5 H (0.2-1.2) % Lymph # (Auto) 1.80 (0.9-3.2) K/mm3 [place] # (Auto) 0.5 (0.1-0.6) K/mm3 Eos # (Auto) 0.1 (0-0.3) K/mm3 Baso # (Auto) 0.1 (0.0-0.1) K/mm3 Abs Immat Gran (auto) 0.01 (0.00-0.031) K/mm3 Absolute Neuts (auto) 2.3 (1.3-6.7) K/mm3 Absolute Nucleated RBC 0.000 (0.0-0.012) K/mm3 Nucleated RBC % 0.0 (0.0-0.2) % Sodium 135 L (137-145) mmol/L Potassium 3.5 (3.4-5.0) mmol/L Chloride 100 (98-107) mmol/L Carbon Dioxide 20 L (22-30) mmol/L Anion Gap 15 H (4-12) mmol/L BUN 10 (7-17) mg/dL Creatinine 0.63 L (0.7-1.0) mg/dL Estim Creat Clear Calc 81 ml/min Estimated GFR > 60 (59 - ) Glucose 116 H (65-110) mg/dL Lactic Acid 2.6 H (0.7-2.0) mmol/L Calcium 9.7 (8.4-10.2) mg/dL Magnesium 1.5 L (1.6-2.3) mg/dL Total Bilirubin 1.2 (0.2-1.3) mg/dL AST 94 H (14-36) U/L ALT 61 H (6-35) U/L Alkaline Phosphatase 153 H (38-126) U/L Total Protein 8.3 H (6.3-8.2) g/dL Albumin 4.7 (3.5-5.1) g/dL Lipase 114 (23-300) U/L TSH (Reflex) 1.130 (0.465-4.68) uIU/mL Urine Color Dark yellow (Yellow) Urine Appearance Cloudy H (Clear) Urine pH 5.0 (5.0-9.0) Ur Specific [place] 1.018 (1.001-1.035) Urine Protein 1+ H (Negative) mg/dL Urine Glucose (UA) Negative (Negative) mg/dL Urine Ketones Trace H (Negative) mg/dL Ur Blood (Man) Negative (Negative) Urine Nitrate Negative (Negative) Urine Bilirubin 1+ H (Negative) Urine Urobilinogen 1.0 (<2.0) mg/dL Leukocyte Esterase Rfl Trace H (Negative) BECKY/UL Urine RBC 0-2 (0-2) /hpf Urine WBC 0-5 (0-3) /hpf Ur Squamous Epith Cells None seen (Few) /hpf Urine Bacteria None seen /hpf Urine Casts 3-5 POC Urine HCG, Qual (Negative) Influenza A (RT-PCR) Negative (Negative) Influenza B (RT-PCR) Negative (Negative) RSV (RT-PCR) Negative (Negative) SARS-CoV-2 RNA (RT-PCR) Negative (Negative) 04/26/25 Range/Units 09:34 WBC (4.5-10.0) K/mm3 RBC (4.2-5.4) M/mm3 Hgb (12.0-15.0) g/dL Hct (37.0-47.0) % MCV (80-100) fl MCH (26-34) pg MCHC (32-36) g/dl RDW (11.5-14.5) % Plt Count (150-375) k/mm3 MPV (7.4-10.4) fl Immature Gran % (Auto) (0-0.5) % Neut % (Auto) (45.5-73.1) % Lymph % (Auto) (18.3-44.2) % [place] % (Auto) (2.6-8.5) % Eos % (Auto) (0-4.4) % Baso % (Auto) (0.2-1.2) % Lymph # (Auto) (0.9-3.2) K/mm3 [place] # (Auto) (0.1-0.6) K/mm3 Eos # (Auto) (0-0.3) K/mm3 Baso # (Auto) (0.0-0.1) K/mm3 Abs Immat Gran (auto) (0.00-0.031) K/mm3 Absolute Neuts (auto) (1.3-6.7) K/mm3 Absolute Nucleated RBC (0.0-0.012) K/mm3 Nucleated RBC % (0.0-0.2) % Sodium (137-145) mmol/L Potassium (3.4-5.0) mmol/L Chloride (98-107) mmol/L Carbon Dioxide (22-30) mmol/L Anion Gap (4-12) mmol/L BUN (7-17) mg/dL Creatinine (0.7-1.0) mg/dL Estim Creat Clear Calc ml/min Estimated GFR (59 - ) Glucose (65-110) mg/dL Lactic Acid (0.7-2.0) mmol/L Calcium (8.4-10.2) mg/dL Magnesium (1.6-2.3) mg/dL Total Bilirubin (0.2-1.3) mg/dL AST (14-36) U/L ALT (6-35) U/L Alkaline Phosphatase (38-126) U/L Total Protein (6.3-8.2) g/dL Albumin (3.5-5.1) g/dL Lipase (23-300) U/L TSH (Reflex) (0.465-4.68) uIU/mL Urine Color (Yellow) Urine Appearance (Clear) Urine pH (5.0-9.0) Ur Specific [place] (1.001-1.035) Urine Protein (Negative) mg/dL Urine Glucose (UA) (Negative) mg/dL Urine Ketones (Negative) mg/dL Ur Blood (Man) (Negative) Urine Nitrate (Negative) Urine Bilirubin (Negative) Urine Urobilinogen (<2.0) mg/dL Leukocyte Esterase Rfl (Negative) BECKY/UL Urine RBC (0-2) /hpf Urine WBC (0-3) /hpf Ur Squamous Epith Cells (Few) /hpf Urine Bacteria /hpf Urine Casts POC Urine HCG, Qual Negative (Negative) Influenza A (RT-PCR) (Negative) Influenza B (RT-PCR) (Negative) RSV (RT-PCR) (Negative) SARS-CoV-2 RNA (RT-PCR) (Negative) Imaging Data Radiologist's impression: Impressions Abdomen/Pelvis CT 04/26/25 09:54 IMPRESSION: 1. Mild colitis probably infectious in nature. 2. Mild cystitis. Discharge Plan Discharge Clinical Impression: Hypomagnesemia, Colitis, Nausea & vomiting, Adult failure to thrive Patient Disposition: Still a Patient Condition: Serious
[2025-04-26] MEDS: HYDROmorphone HCL INJ (*CRX) 1 MG/ML SYR 0.5 MG IV PUSH (09:04)
[2025-04-26 09:05] LABS: Hematocrit 43.5 % (37.0-47.0); Hemoglobin 15.1 g/dL (12.0-15.0); Immature Granulocyte Percent A 0.2 % (0-0.5); Lymphocytes Absolute Auto 1.80 K/mm3 (0.9-3.2); Mean Corpuscular HGB Conc 34.7 g/dl (32-36); Mean Corpuscular Hemoglobin 35.5 pg (26-34); Mean Corpuscular Volume 102.4 fl (80-100); Nucleated Red Blood Cells Absolute Auto 0.000 K/mm3 (0.0-0.012); Nucleated Red Blood Cells Perc 0.0 % (0.0-0.2); Platelet Count Result 214 k/mm3 (150-375); Red Blood Count 4.25 M/mm3 (4.2-5.4); White Blood Count 4.7 K/mm3 (4.5-10.0)
[2025-04-26] MEDS: LACTATED RINGERS 1,000 ML 999 ML IV CONT (09:05)
[2025-04-26] MEDS: dexAMETHasone SOD PHOS INJ 10 MG/ML 1 ML VIAL IV PUSH (09:06)
[2025-04-26 09:24] LABS: Alanine Aminotransferase 61 U/L (6-35); Albumin Level 4.7 g/dL (3.5-5.1); Alkaline Phosphatase 153 U/L (38-126); Anion Gap 15 mmol/L (4-12); Aspartate Amino Transferase 94 U/L (14-36); Bilirubin,Total 1.2 mg/dL (0.2-1.3); Blood Urea Nitrogen 10 mg/dL (7-17); Calcium 9.7 mg/dL (8.4-10.2); Carbon Dioxide 20 mmol/L (22-30); Chloride 100 mmol/L (98-107); Estimated CRCL calculation 81 ml/min; Estimated Glomerular Filt Rate > 60; Glucose 116 mg/dL (65-110); Lipase 114 U/L (23-300); Magnesium 1.5 mg/dL (1.6-2.3); Potassium 3.5 mmol/L (3.4-5.0); Sodium 135 mmol/L (137-145); Total Protein 8.3 g/dL (6.3-8.2)
[2025-04-26 09:30] LABS: Add Urine Microscopic? YES; Appearance Urine Cloudy (Clear); Glucose Urine UA Negative (Negative); Leukocyte Esterase Ur Trace LEU/UL (Negative); Nitrate Urine Negative (Negative); Specific Grav Ur 1.018 (1.001-1.035)
[2025-04-26 09:37] LABS: BEDSIDEPREGUCG Negative (Negative)
[2025-04-26] MEDS: MAGNESIUM SULF 2 GM/WATER 50ML 2 GM/50 ML BAG IVPB (09:52)
[2025-04-26 09:55] LABS: Thyroid Stimulating Hormone Reflex 1.130 uIU/mL (0.465-4.68)
[2025-04-26 10:00] LABS: Influenza A QL RT-PCR Negative (Negative); Influenza B QL RT-PCR Negative (Negative); RSV RNA, RT-PCR Negative (Negative); SARS-CoV-2 RNA PCR Negative (Negative)
[2025-04-26] MEDS: cefTRIAXone 1 GM in SODIUM CHLORIDE 0.9% IV 50 ML 100 ML IVPB (11:38)
[2025-04-26] MEDS: metroNIDAZOLE 500 MG/ISO 100ML 500 MG/100 ML BAG 100 MG IVPB ×2 (12:37→21:57)
--- NOTE | 2025-04-26 14:13 | ADMGEN ---
This patient, Ester León, was admitted to Medical Room 348-01. Patient/family oriented to hospital policies and general routines including ID bracelet, bed and alarms, visiting hours, pain management, procedures, bathroom and other care routines, personal items, smoking policy, room service/diet, and visiting hours. Information on how to activate the Rapid Response Team has been discussed. Patient/Family are encouraged to report perceived risks to care and to ask questions if they do not understand what they are told or what they should do.
--- NOTE | 2025-04-26 14:41 | PM.IMHP ---
H&P: HPI History of Present Illness Date/Time: 04/26/25 14:41 Chief Complaint: Nausea vomiting diarrhea Narrative: 35-year-old female who presents with 1 week history of a nausea vomiting diarrhea and decreased p.o. intake. She was admitted recently for similar symptoms. She did improve at the time of discharge however over the past few days she started having worsening symptoms. She reports abdominal pain. She had history of cardiac arrest with ventricular fibrillation in October of 2024. In the ED her vitals were stable. Laboratory evaluation showed WBC of 4.7 hemoglobin of 15.1 indicating hemoconcentration platelet count of 214. Chemistry panel showed sodium 135 potassium 3.5 chloride 100 bicarbonate 20 BUN 10 creatinine 0.6 blood glucose of 116. Lactate was elevated at 2.6. LFT showed total bilirubin of 1.2 AST of 94 ALT 61 alkaline phosphatase 153. Lipase was normal at 114. TSH 1.13 normal. Magnesium 1.5. Urinalysis was negative for UTI. Repeat lactate 1.2 after IV fluid was normal. Patient was negative for influenza RSV and COVID. CT scan of abdomen pelvis showed mild colitis probably infectious in nature. Mild cystitis noted as well. Patient has been started on Rocephin and Flagyl. She is admitted in the setting for further treatment Review of Systems Review of Systems: - CONSTITUTIONAL: Denies weight loss, fever and chills. - HEENT: Denies changes in vision and hearing - RESPIRATORY: Denies SOB and cough. - CV: Denies palpitations and CP. - GI: Reports abdominal pain, nausea, vomiting and diarrhea. - : Denies dysuria and urinary frequency. - MSK: Denies myalgia and joint pain. - SKIN: Denies rash and pruritus. - NEUROLOGICAL: Denies headache and syncope. - PSYCHIATRIC: Denies recent changes in mood. Denies anxiety and depression. [facility] Past Medical History Medical History Cardiac arrest with ventricular fibrillation October 2024 Adrenal insufficiency Depression with anxiety Avoidant/restrictive food intake disorder Cannabis abuse Elevated LFTs Mitral valve prolapse Surgical History Surgical History History of percutaneous endoscopic gastrostomy Family History Family History Mother Heart attack Mitral valve prolapse Grandparent Cancer Grandparent Mitral valve prolapse Social History Social History Social History: Surrogate medical decision maker: Jorge Luis Centeno, significant other. Code status: Full code. Smoking packs per day: 0.5 Smoking cigarettes per day: 10.0 Years smoked: 20 Smoking pack-years: 10.00 Smoking status: Current every day smoker Tobacco type: cigarettes Alcohol intake: current Drinks per week: 5 Alcohol use details: States she drinks 1 pint a week Substance use: never Substance use type: marijuana Other substance usage details: weekly Last use: 01/22/2025 Do You Feel Safe in your Home?: Yes Lack of Transportation: No Lack of Food: Never True Current Housing: I Have Housing Concerned About Future Housing: No Difficulty Paying Gas/Electric Bills: No Difficulty Paying for Meds: No Currently Unemployed: No Education: High School Diploma/GED Difficulty w/ Childcare or Family Care: No Living arrangements: with family Additional living arrangements comments: with 7 year old son and fianc? Occupation/Education: unemployed Spiritual care concerns: No Agree to blood products: Yes Meds Home Medications and Allergies Home Medications ?Medication ?Instructions ?Recorded ?Confirmed ?Type ferrous sulfate 325 mg (65 mg 325 mg PO BID 03/28/24 04/26/25 History iron) tablet,delayed release folic acid 1 mg tablet 1 mg feeding tube DAILY 03/28/24 04/26/25 History megestrol 20 mg tablet 20 mg feeding tube BID 03/28/24 04/26/25 History thiamine HCl (vitamin B1) 100 mg 100 mg feeding tube DAILY 03/28/24 04/26/25 History tablet vitamin B complex (Vitamins B 1 cap feeding tube QAM 03/28/24 04/26/25 History Complex capsule) lactose-reduced food with fiber See Rx Instructions .Route .COMPLEX 08/07/24 04/26/25 History 0.06 gram-1.5 kcal/mL oral liquid (Jevity 1.5 Chriss) Held on 04/26/25. Instructions: Order Change potassium chloride 10 mEq 10 meq feeding tube DAILY #60 caps 08/15/24 04/26/25 Rx capsule,extended release buspirone 15 mg tablet 15 mg feeding tube TID 01/08/25 04/26/25 History cyanocobalamin (vitamin B-12) 1,000 mcg feeding tube MONTHLY 01/08/25 04/26/25 History 1,000 mcg tablet Held on 04/26/25. Instructions: Patient no longer taking nicotine 14 mg/24 hr daily 1 patch transdermal Q24H 01/08/25 04/26/25 History transdermal patch Held on 04/26/25. Instructions: Patient smokes rivaroxaban 20 mg tablet (Xarelto) 20 mg PO DAILY@1700 #30 tabs 01/12/25 04/26/25 Rx ergocalciferol (vitamin D2) 1,250 1,250 mcg feeding tube WEEKLY 02/13/25 04/26/25 History mcg (50,000 unit) capsule famotidine 20 mg tablet 20 mg PO HS 02/13/25 04/26/25 History magnesium oxide 400 mg (241.3 mg 420 mg feeding tube DAILY 02/13/25 04/26/25 History magnesium) tablet Held on 04/26/25. Instructions: Order Change methocarbamol 750 mg tablet 750 mg feeding tube .q4hr 02/13/25 04/26/25 History nadolol 20 mg tablet 20 mg feeding tube DAILY 02/13/25 04/26/25 History amoxicillin 875 mg-potassium 1 tablet PO Q12H #12 tabs 04/20/25 04/26/25 Rx clavulanate 125 mg tablet magnesium oxide 420 mg tablet 420 mg PO DAILY 04/26/25 04/26/25 History Allergies Allergy/AdvReac Type Severity Reaction Status Date / Time latex Allergy Rash Verified 04/26/25 08:42 melatonin AdvReac Mild chest Verified 04/26/25 08:42 heaviness Vital Signs Vital Signs - 24 hr 04/26/25 08:38 04/26/25 08:56 04/26/25 09:54 Temperature 98.1 F Pulse Rate 83 89 91 Respiratory Rate 18 19 20 Blood Pressure 114/94 H 111/88 122/81 Pulse Oximetry 96 98 100 Oxygen Delivery Room Air 04/26/25 10:57 Temperature Pulse Rate 92 Respiratory Rate 18 Blood Pressure 109/72 Pulse Oximetry 99 Oxygen Delivery Exam Narrative: GENERAL: Chronically ill-appearing underweight, and in no acute distress. HEAD: Normocephalic, atraumatic. EYES: PERRL and EOMI. ENT: Mucous membranes moist. CHEST: Clear to auscultation. No respiratory distress. HEART: Regular rate and rhythm Normal peripheral pulses. ABDOMEN: Soft, mild tenderness epigastric area, nondistended. G-tube in situ EXTREMITIES: Normal range of motion. No edema. SKIN: Warm, dry, no rash. NEURO: Alert and oriented x3. PSYCH: Normal mood and affect. H&P: Results Labs Labs: Short CBC 04/26/25 Range/Units 08:57 WBC 4.7 (4.5-10.0) K/mm3 Hgb 15.1 H D (12.0-15.0) g/dL Hct 43.5 (37.0-47.0) % Plt Count 214 (150-375) k/mm3 BMP 04/26/25 08:57 Sodium 135 L Potassium 3.5 Chloride 100 Carbon Dioxide 20 L BUN 10 Creatinine 0.63 L Glucose 116 H Calcium 9.7 Liver Function 04/26/25 Range/Units 08:57 Total Bilirubin 1.2 (0.2-1.3) mg/dL AST 94 H (14-36) U/L ALT 61 H (6-35) U/L Alkaline Phosphatase 153 H (38-126) U/L Albumin 4.7 (3.5-5.1) g/dL Urine 04/26/25 Range/Units 09:04 Urine Color Dark yellow (Yellow) Urine Appearance Cloudy H (Clear) Urine pH 5.0 (5.0-9.0) Ur Specific [place] 1.018 (1.001-1.035) Urine Protein 1+ H (Negative) mg/dL Urine Glucose (UA) Negative (Negative) mg/dL Assessment and Plan Assessment and plan (1) Eating disorder, unspecified: Code(s): F50.9 - Eating disorder, unspecified Status: Acute (2) Depression with anxiety: Code(s): F41.8 - Other specified anxiety disorders Status: Acute (3) Prolonged Q-T interval on ECG: Code(s): R94.31 - Abnormal electrocardiogram [ECG] [EKG] Status: Acute (4) History of torsades de pointes: Code(s): Z86.79 - Personal history of other diseases of the circulatory system Status: Acute (5) Adrenal insufficiency: Code(s): E27.40 - Unspecified adrenocortical insufficiency Status: Acute (6) Severe protein-calorie malnutrition: Code(s): E43 - Unspecified severe protein-calorie malnutrition Status: Acute (7) Nausea & vomiting: Code(s): R11.2 - Nausea with vomiting, unspecified Status: Acute (8) Colitis: Code(s): K52.9 - Noninfective gastroenteritis and colitis, unspecified Status: Acute (9) Hypomagnesemia: Code(s): E83.42 - Hypomagnesemia Status: Acute (10) Pain in both lower extremities: Code(s): M79.604 - Pain in right leg; M79.605 - Pain in left leg Status: Acute Plan 35-year-old female who presents with 1 week history of a nausea vomiting diarrhea and decreased p.o. intake. She was admitted recently for similar symptoms. She did improve at the time of discharge however over the past few days she started having worsening symptoms. She reports abdominal pain. She had history of cardiac arrest with ventricular fibrillation in October of 2024. In the ED her vitals were stable. Laboratory evaluation showed WBC of 4.7 hemoglobin of 15.1 indicating hemoconcentration platelet count of 214. Chemistry panel showed sodium 135 potassium 3.5 chloride 100 bicarbonate 20 BUN 10 creatinine 0.6 blood glucose of 116. Lactate was elevated at 2.6. LFT showed total bilirubin of 1.2 AST of 94 ALT 61 alkaline phosphatase 153. Lipase was normal at 114. TSH 1.13 normal. Magnesium 1.5. Urinalysis was negative for UTI. Repeat lactate 1.2 after IV fluid was normal. Patient was negative for influenza RSV and COVID. CT scan of abdomen pelvis showed mild colitis probably infectious in nature. Mild cystitis noted as well. Patient has been started on Rocephin and Flagyl. She is admitted in the setting for further treatment Colitis will order stool studies Rocephin and metronidazole Nausea vomiting diarrhea History of ESBL E coli UTI Hypomagnesemia replace and monitor Adrenal insufficiency has was diagnosed with low cortisol level in October 2024. Patient did not follow-up with Endocrinology.. Will recheck cortisol in a.m. History of cardiac arrest secondary to VFib on October 2024 follows EP at [facility]. Possible congenital QT prolongation syndrome. On nadolol. Also on LifeVest History of left ventricular thrombus on Xarelto Eating disorder Status post PEG tube placement 11/07/2019 fall Chronic LFT elevation Angela 1 IV use Tobacco abuse Anxiety depression Alcohol use disorder Hospitalist MIPS Advance Care Plan I have confirmed that the patient's Advanced Care Plan is present, code status is documented, or surrogate decision maker is listed in patient medical record.: Yes Medication Reconciliation I have utilized all available resources to obtain, update and review the patients current medications (includes all prescriptions, OTC, herbals, cannabis, and nutritional supplements).: Yes
--- NOTE | 2025-04-26 16:25 | ECG_ITS ---
Test Date: 2025-04-26 16:39:50 Measurements Intervals [place] Rate: 73 P: 29 OK: 118 QRS: 48 QRSD: 84 T: 46 QT: 444 QTc: 491 Interpretive Statements SINUS RHYTHM WITH SHORT OK INTERVAL BASELINE ARTIFACT- I, II, III, AVR, AVL, AVF, V4-V6 BORDERLINE ECG Compared to ECG 04/16/2025 15:09:33 T-wave abnormality no longer present Electronically Signed On 04-26-2025 19:19:29 CDT by Jayme Mcneal D.O.
[2025-04-26] MEDS: SODIUM CHLORIDE 0.9% IV 1,000 ML 75 ML IV CONT (17:49)
[2025-04-26] MEDS: KETOROLAC 15 MG/ML VIAL (*BKC) IV PUSH (17:50)
[2025-04-26] MEDS: SCOPOLAMINE 1 MG PATCH 1 PATCH TRANSDERM (17:51)
[2025-04-26] MEDS: FAMOTIDINE 20 MG TABLET FEED TUBE (21:57)
[2025-04-27] VITALS (11 sets, daily range): BP systolic 101–110; BP diastolic 50–78; PULSE 51–79; RESP 16–20; TEMP 36.2–36.8; O2SAT 95–100
[2025-04-27] MEDS: NICOTINE (*PBKC) 21 MG PATCH 1 PATCH TRANSDERM ×2 (02:47→08:52)
[2025-04-27 03:34] LABS: Toxigenic C. Diff NEGATIVE (NEGATIVE)
[2025-04-27] MEDS: metroNIDAZOLE 500 MG/ISO 100ML 500 MG/100 ML BAG 100 MG IVPB ×3 (06:30→21:54)
[2025-04-27] MEDS: SODIUM CHLORIDE 0.9% IV 1,000 ML 75 ML IV CONT ×2 (06:31→21:55)
[2025-04-27] MEDS: KETOROLAC 15 MG/ML VIAL (*BKC) IV PUSH ×2 (06:34→17:58)
[2025-04-27] MEDS: FERROUS SULFATE 325 MG TABLET PO ×2 (08:50→18:46)
[2025-04-27] MEDS: MAGNESIUM OXIDE 400 MG TABLET PO (08:50)
[2025-04-27] MEDS: FOLIC ACID 1 MG TABLET FEED TUBE (08:50)
[2025-04-27] MEDS: THIAMINE HCL 100 MG TABLET FEED TUBE (08:50)
[2025-04-27] MEDS: POTASSIUM CHLORIDE 20 MEQ PACKET (FOR LIQUID) 10 MEQ FEED TUBE (08:51)
[2025-04-27] MEDS: MEGESTROL ACETATE (*CHEMO) 20 MG TABLET FEED TUBE ×2 (08:51→18:46)
[2025-04-27 09:10] LABS: Hematocrit 34.1 % (37.0-47.0); Hemoglobin 11.6 g/dL (12.0-15.0); Immature Granulocyte Percent A 0.4 % (0-0.5); Lymphocytes Absolute Auto 1.55 K/mm3 (0.9-3.2); Mean Corpuscular HGB Conc 34.0 g/dl (32-36); Mean Corpuscular Hemoglobin 36.4 pg (26-34); Mean Corpuscular Volume 106.9 fl (80-100); Nucleated Red Blood Cells Absolute Auto 0.000 K/mm3 (0.0-0.012); Nucleated Red Blood Cells Perc 0.0 % (0.0-0.2); Platelet Count Result 163 k/mm3 (150-375); Red Blood Count 3.19 M/mm3 (4.2-5.4); White Blood Count 5.7 K/mm3 (4.5-10.0)
[2025-04-27 09:33] LABS: Alanine Aminotransferase 37 U/L (6-35); Albumin Level 3.3 g/dL (3.5-5.1); Alkaline Phosphatase 91 U/L (38-126); Anion Gap 7 mmol/L (4-12); Aspartate Amino Transferase 48 U/L (14-36); Bilirubin,Total 1.2 mg/dL (0.2-1.3); Blood Urea Nitrogen 8 mg/dL (7-17); Calcium 9.1 mg/dL (8.4-10.2); Carbon Dioxide 19 mmol/L (22-30); Chloride 107 mmol/L (98-107); Estimated CRCL calculation 92 ml/min; Estimated Glomerular Filt Rate > 60; Glucose 95 mg/dL (65-110); Magnesium 2.0 mg/dL (1.6-2.3); Potassium 3.5 mmol/L (3.4-5.0); Sodium 133 mmol/L (137-145); Total Protein 5.7 g/dL (6.3-8.2)
[2025-04-27 09:44] LABS: Macrocytosis 1+ (NORMAL); Schistocytes None Seen
[2025-04-27] MEDS: VITAMIN B COMPLEX CAPSULE 1 CAP FEED TUBE (12:37)
[2025-04-27] MEDS: oxyCODONE/ACETAMINOPHEN (*CRX) 5-325 MG TABLET 1 TABLET PO ×2 (12:37→18:46)
[2025-04-27] MEDS: cefTRIAXone 1 GM in SODIUM CHLORIDE 0.9% IV 50 ML 100 ML IVPB (12:38)
[2025-04-27] MEDS: PANTOPRAZOLE SODIUM IV 40 MG VIAL IV PUSH (12:38)
[2025-04-27] MEDS: COSYNTROPIN 0.25 MG/ML VIAL IV PUSH (13:06)
[2025-04-27] MEDS: POTASSIUM CHLORIDE 20 MEQ PACKET (FOR LIQUID) 40 MEQ PO (13:09)
--- NOTE | 2025-04-27 14:01 | P.PNIM_ITS ---
Progress Note: A&P Assessment and Plan (1) Eating disorder, unspecified: Code(s): F50.9 - Eating disorder, unspecified Status: Acute (2) Depression with anxiety: Code(s): F41.8 - Other specified anxiety disorders Status: Acute (3) Prolonged Q-T interval on ECG: Code(s): R94.31 - Abnormal electrocardiogram [ECG] [EKG] Status: Acute (4) History of torsades de pointes: Code(s): Z86.79 - Personal history of other diseases of the circulatory system Status: Acute (5) Adrenal insufficiency: Code(s): E27.40 - Unspecified adrenocortical insufficiency Status: Acute (6) Severe protein-calorie malnutrition: Code(s): E43 - Unspecified severe protein-calorie malnutrition Status: Acute (7) Nausea & vomiting: Code(s): R11.2 - Nausea with vomiting, unspecified Status: Acute (8) Colitis: Code(s): K52.9 - Noninfective gastroenteritis and colitis, unspecified Status: Acute (9) Hypomagnesemia: Code(s): E83.42 - Hypomagnesemia Status: Acute (10) Pain in both lower extremities: Code(s): M79.604 - Pain in right leg; M79.605 - Pain in left leg Status: Acute Plan 35-year-old female who presents with 1 week history of a nausea vomiting diarrhea and decreased p.o. intake. She was admitted recently for similar symptoms. She did improve at the time of discharge however over the past few days she started having worsening symptoms. She reports abdominal pain. She had history of cardiac arrest with ventricular fibrillation in October of 2024. In the ED her vitals were stable. Laboratory evaluation showed WBC of 4.7 hemoglobin of 15.1 indicating hemoconcentration platelet count of 214. Chemistry panel showed sodium 135 potassium 3.5 chloride 100 bicarbonate 20 BUN 10 creatinine 0.6 blood glucose of 116. Lactate was elevated at 2.6. LFT showed total bilirubin of 1.2 AST of 94 ALT 61 alkaline phosphatase 153. Lipase was normal at 114. TSH 1.13 normal. Magnesium 1.5. Urinalysis was negative for UTI. Repeat lactate 1.2 after IV fluid was normal. Patient was negative for influenza RSV and COVID. CT scan of abdomen pelvis showed mild colitis probably infectious in nature. Mild cystitis noted as well. Patient has been started on Rocephin and Flagyl. She is admitted in the setting for further treatment Colitis will order stool studies Rocephin and metronidazole Nausea vomiting diarrhea History of ESBL E coli UTI Hypomagnesemia replace and monitor Adrenal insufficiency has was diagnosed with low cortisol level in October 2024. Patient did not follow-up with Endocrinology.. Recheck cortisol this a.m. very low at 0.9 will do cosyntropin test. Will start hydrocortisone History of cardiac arrest secondary to VFib on October 2024 follows EP at [facility]. Possible congenital QT prolongation syndrome. On nadolol. Also on LifeVest History of left ventricular thrombus on Xarelto Eating disorder Status post PEG tube placement 11/07/2019 fall Chronic LFT elevation Angela Ojeda IV use Tobacco abuse Anxiety depression Alcohol use disorder Subjective Date/time seen: 04/27/25 14:01 Interval history: Complains of neuropathic pain still have 1 or 2 episodes of diarrhea. Still feels nauseated but no vomiting. Reports abdominal pain. Review of Systems Review of Systems: All systems reviewed & are unremarkable except as noted in HPI and below Exam Narrative: GENERAL: Chronically ill-appearing underweight, and in no acute distress. HEAD: Normocephalic, atraumatic. EYES: PERRL and EOMI. ENT: Mucous membranes moist. CHEST: Clear to auscultation. No respiratory distress. HEART: Regular rate and rhythm Normal peripheral pulses. ABDOMEN: Soft, mild tenderness epigastric area, nondistended. G-tube in situ EXTREMITIES: Normal range of motion. No edema. SKIN: Warm, dry, no rash. NEURO: Alert and oriented x3. PSYCH: Normal mood and affect. Objective Data Vital Signs Vital Signs: Vital Signs - 24 hr 04/26/25 14:30 04/26/25 16:00 04/26/25 20:00 Temperature Pulse Rate 77 Respiratory Rate Blood Pressure Pulse Oximetry Oxygen Delivery Room Air Room Air 04/26/25 20:00 04/26/25 23:33 04/27/25 00:00 Temperature 97.6 F Pulse Rate 82 71 67 Respiratory Rate 18 Blood Pressure 106/58 L Pulse Oximetry 99 Oxygen Delivery 04/27/25 04:00 04/27/25 06:16 04/27/25 08:51 Temperature 97.2 F L Pulse Rate 58 L 53 L 75 Respiratory Rate 18 Blood Pressure 101/69 Pulse Oximetry 100 Oxygen Delivery 04/27/25 13:16 Temperature 98.2 F Pulse Rate 68 Respiratory Rate 16 Blood Pressure 110/78 Pulse Oximetry 100 Oxygen Delivery Intake/Output Intake/Output: Intake & Output 04/24/25 04/25/25 04/26/25 04/27/25 23:59 23:59 23:59 23:59 Intake Total 1720 2262.5 Balance 1720 2262.5 Meds/Results Medications: Active Medications Generic Name Dose Route Start Last Admin Trade Name Freq PRN Reason Stop Dose Admin Buspirone HCl 15 mg 04/26/25 17:00 04/27/25 12:38 Buspirone Hcl 5 Mg Tablet FEED TUBE 15 mg TID JU Administration Ergocalciferol 1,250 mcg 05/02/25 09:00 Ergocalciferol (Vitamin D2) 1,250 Mcg (50,000 Units) Capsule FEED TUBE WEEKLY JU Famotidine 20 mg 04/26/25 21:00 04/26/25 21:57 Famotidine 20 Mg Tablet FEED TUBE 20 mg HS JU Administration Ferrous Sulfate 325 mg 04/26/25 17:00 04/27/25 08:50 Ferrous Sulfate 325 Mg Tablet PO 325 mg BID JU Administration Folic Acid 1 mg 04/27/25 09:00 04/27/25 08:50 Folic Acid 1 Mg Tablet FEED TUBE 1 mg DAILY JU Administration Ceftriaxone Sodium 1 gm/ 50 mls @ 100 mls/hr 04/27/25 12:00 04/27/25 12:38 Sodium Chloride IVPB 100 mls/hr Q24H JU Administration Metronidazole 500 mg in 100 mls @ 100 mls/hr 04/26/25 22:00 04/27/25 06:30 Flagyl 500 Mg/Iso Soln 100 Ml IVPB 100 mls/hr Q8HR JU Administration Sodium Chloride 1,000 mls @ 75 mls/hr 04/26/25 16:25 04/27/25 06:31 Normal Saline Iv IV CONT 75 mls/hr .[id number] JU Administration Ketorolac Tromethamine 15 mg 04/26/25 16:26 04/27/25 06:34 Ketorolac 15 Mg/Ml Vial (*Bkc) IV PUSH 15 mg Q6H PRN Administration Pain Rated 4-6 Magnesium Oxide 400 mg 04/27/25 09:00 04/27/25 08:50 Magnesium Oxide 400 Mg Tablet PO 400 mg DAILY JU Administration Megestrol Acetate 20 mg 04/26/25 17:00 04/27/25 08:51 Megestrol Acetate (*Chemo) 20 Mg Tablet FEED TUBE 20 mg BID JU Administration Methocarbamol 750 mg 04/26/25 21:00 04/27/25 12:38 Methocarbamol 750 Mg Tablet FEED TUBE 750 mg Q4HR JU Administration Nadolol 20 mg 04/27/25 09:00 04/27/25 08:51 Nadolol 20 Mg Tablet FEED TUBE 20 mg DAILY JU Administration Nicotine 1 patch 04/27/25 01:50 04/27/25 08:52 Nicotine (*Pbkc) 21 Mg Patch TRANSDERM 1 patch DAILY JU Administration Oxycodone/Acetaminophen 1 tablet 04/27/25 12:03 04/27/25 12:37 Oxycodone/Acetaminophen (*Crx) 5-325 Mg Tablet PO 1 tablet Q6H PRN Administration Pain Rated 7-10 Pantoprazole Sodium 40 mg 04/27/25 12:05 04/27/25 12:38 Pantoprazole Sodium Iv 40 Mg Vial IV PUSH 40 mg QAM [facility] Administration Potassium Chloride 10 meq 04/27/25 09:00 04/27/25 08:51 Potassium Chloride 20 Meq Packet (For Liquid) FEED TUBE 10 meq DAILY JU Administration Prochlorperazine Edisylate 10 mg 04/26/25 16:48 Prochlorperazine Edisylate 10 Mg/2 Ml Vial IV PUSH Q6H PRN Nausea And Vomiting Rivaroxaban 20 mg 04/26/25 17:00 04/26/25 17:51 Rivaroxaban 20 Mg Tablet PO Not Given DAILY@1700 [facility] Thiamine HCl 100 mg 04/27/25 09:00 04/27/25 08:50 Thiamine Hcl 100 Mg Tablet FEED TUBE 100 mg DAILY JU Administration Vitamin B Complex 1 cap 04/27/25 09:00 04/27/25 12:37 Vitamin B Complex Capsule FEED TUBE 1 cap QAM JU Administration Radiology Results: ITS Impressions Abdomen/Pelvis CT 04/26/25 09:54 IMPRESSION: 1. Mild colitis probably infectious in nature. 2. Mild cystitis. Labs Labs: Laboratory Results - last 24 hr 10/11/1604/27/25 04/27/25 02:10 08:04 09:04 WBC 5.7 RBC 3.19 L Hgb 11.6 L D Hct 34.1 L MCV 106.9 H MCH 36.4 H MCHC 34.0 RDW 12.8 Plt Count 163 MPV 10.8 H Immature Gran % (Auto) 0.4 Neut % (Auto) 62.6 Lymph % (Auto) 27.3 [place] % (Auto) 9.3 H Eos % (Auto) 0.0 Baso % (Auto) 0.4 Lymph # (Auto) 1.55 [place] # (Auto) 0.5 Eos # (Auto) 0.0 Baso # (Auto) 0.0 Abs Immat Gran (auto) 0.02 Absolute Neuts (auto) 3.6 Absolute Nucleated RBC 0.000 Band Neutrophils % Not Reportable Nucleated RBC % 0.0 Platelet Estimate Adequate Macrocytosis 1+ Schistocytes None seen Sodium 133 L Potassium 3.5 Chloride 107 Carbon Dioxide 19 L Anion Gap 7 BUN 8 Creatinine 0.55 L Estim Creat Clear Calc 92 Estimated GFR > 60 Glucose 95 Calcium 9.1 Magnesium 2.0 Total Bilirubin 1.2 AST 48 H ALT 37 H Alkaline Phosphatase 91 Total Protein 5.7 L Albumin 3.3 L Cortisol Baseline 0.95 C. difficile (PCR) Negative 04/27/25 12:22 WBC RBC Hgb Hct MCV MCH MCHC RDW Plt Count MPV Immature Gran % (Auto) Neut % (Auto) Lymph % (Auto) [place] % (Auto) Eos % (Auto) Baso % (Auto) Lymph # (Auto) [place] # (Auto) Eos # (Auto) Baso # (Auto) Abs Immat Gran (auto) Absolute Neuts (auto) Absolute Nucleated RBC Band Neutrophils % Nucleated RBC % Platelet Estimate Macrocytosis Schistocytes Sodium Potassium Chloride Carbon Dioxide Anion Gap BUN Creatinine Estim Creat Clear Calc Estimated GFR Glucose Calcium Magnesium Total Bilirubin AST ALT Alkaline Phosphatase Total Protein Albumin Cortisol Baseline 0.99 C. difficile (PCR)
[2025-04-27] MEDS: HYDROCORTISONE SODIUM SUCCINATE 100 MG/2 ML VIAL IV PUSH ×2 (14:17→21:55)
[2025-04-27 14:53] LABS: Cortisol 60 Minute 15.80 ug/dL
[2025-04-27] MEDS: PROCHLORPERAZINE EDISYLATE 10 MG/2 ML VIAL IV PUSH (17:58)
[2025-04-27] MEDS: RIVAROXABAN 20 MG TABLET PO (18:46)
[2025-04-27] MEDS: NEOMYCIN/POLYMYXIN/BACITRACIN OINTMENT 15 GM TUBE 1 APPLIC TOPICAL (18:47)
[2025-04-27] MEDS: FAMOTIDINE 20 MG TABLET FEED TUBE (21:55)
[2025-04-28] VITALS (11 sets, daily range): BP systolic 101–122; BP diastolic 63–73; PULSE 51–78; RESP 16–18; TEMP 36.2–36.9; O2SAT 95–100
[2025-04-28] MEDS: oxyCODONE/ACETAMINOPHEN (*CRX) 5-325 MG TABLET 1 TABLET PO ×4 (00:32→19:33)
[2025-04-28 05:50] LABS: Hematocrit 32.6 % (37.0-47.0); Hemoglobin 10.9 g/dL (12.0-15.0); Immature Granulocyte Percent A 0.1 % (0-0.5); Lymphocytes Absolute Auto 0.79 K/mm3 (0.9-3.2); Mean Corpuscular HGB Conc 33.4 g/dl (32-36); Mean Corpuscular Hemoglobin 36.0 pg (26-34); Mean Corpuscular Volume 107.6 fl (80-100); Nucleated Red Blood Cells Absolute Auto 0.000 K/mm3 (0.0-0.012); Nucleated Red Blood Cells Perc 0.0 % (0.0-0.2); Platelet Count Result 161 k/mm3 (150-375); Red Blood Count 3.03 M/mm3 (4.2-5.4); White Blood Count 6.8 K/mm3 (4.5-10.0)
[2025-04-28] MEDS: HYDROCORTISONE SODIUM SUCCINATE 100 MG/2 ML VIAL IV PUSH ×3 (06:11→21:46)
[2025-04-28] MEDS: metroNIDAZOLE 500 MG/ISO 100ML 500 MG/100 ML BAG 100 MG IVPB ×3 (06:12→21:46)
[2025-04-28 06:17] LABS: Alanine Aminotransferase 34 U/L (6-35); Albumin Level 2.8 g/dL (3.5-5.1); Alkaline Phosphatase 85 U/L (38-126); Anion Gap 4 mmol/L (4-12); Aspartate Amino Transferase 39 U/L (14-36); Bilirubin,Total 0.3 mg/dL (0.2-1.3); Blood Urea Nitrogen 8 mg/dL (7-17); Calcium 8.6 mg/dL (8.4-10.2); Carbon Dioxide 21 mmol/L (22-30); Chloride 111 mmol/L (98-107); Estimated CRCL calculation 110 ml/min; Estimated Glomerular Filt Rate > 60; Glucose 134 mg/dL (65-110); Magnesium 1.6 mg/dL (1.6-2.3); Potassium 3.6 mmol/L (3.4-5.0); Sodium 136 mmol/L (137-145); Total Protein 5.2 g/dL (6.3-8.2)
[2025-04-28 06:21] LABS: Macrocytosis 1+ (NORMAL); Schistocytes None Seen
[2025-04-28] MEDS: NICOTINE (*PBKC) 21 MG PATCH 1 PATCH TRANSDERM (09:38)
[2025-04-28] MEDS: PANTOPRAZOLE SODIUM IV 40 MG VIAL IV PUSH (09:39)
[2025-04-28] MEDS: POTASSIUM CHLORIDE 20 MEQ PACKET (FOR LIQUID) 10 MEQ FEED TUBE (09:43)
[2025-04-28] MEDS: MAGNESIUM OXIDE 400 MG TABLET PO (09:43)
[2025-04-28] MEDS: MEGESTROL ACETATE (*CHEMO) 20 MG TABLET FEED TUBE ×2 (09:45→16:07)
[2025-04-28] MEDS: FOLIC ACID 1 MG TABLET FEED TUBE (09:45)
[2025-04-28] MEDS: VITAMIN B COMPLEX CAPSULE 1 CAP FEED TUBE (09:45)
[2025-04-28] MEDS: THIAMINE HCL 100 MG TABLET FEED TUBE (09:45)
[2025-04-28] MEDS: MAGNESIUM SULF 2 GM/WATER 50ML 2 GM/50 ML BAG IVPB (10:02)
[2025-04-28] MEDS: KETOROLAC 15 MG/ML VIAL (*BKC) IV PUSH (10:44)
[2025-04-28] MEDS: PROCHLORPERAZINE EDISYLATE 10 MG/2 ML VIAL IV PUSH ×2 (10:47→16:17)
[2025-04-28] MEDS: FERROUS SULFATE 325 MG TABLET PO ×2 (12:25→16:07)
[2025-04-28] MEDS: cefTRIAXone 1 GM in SODIUM CHLORIDE 0.9% IV 50 ML 100 ML IVPB (12:25)
--- NOTE | 2025-04-28 13:01 | P.PNIM_ITS ---
Progress Note: A&P Assessment and Plan (1) Eating disorder, unspecified: Code(s): F50.9 - Eating disorder, unspecified Status: Acute (2) Depression with anxiety: Code(s): F41.8 - Other specified anxiety disorders Status: Acute (3) Prolonged Q-T interval on ECG: Code(s): R94.31 - Abnormal electrocardiogram [ECG] [EKG] Status: Acute (4) History of torsades de pointes: Code(s): Z86.79 - Personal history of other diseases of the circulatory system Status: Acute (5) Adrenal insufficiency: Code(s): E27.40 - Unspecified adrenocortical insufficiency Status: Acute (6) Severe protein-calorie malnutrition: Code(s): E43 - Unspecified severe protein-calorie malnutrition Status: Acute (7) Nausea & vomiting: Code(s): R11.2 - Nausea with vomiting, unspecified Status: Acute (8) Colitis: Code(s): K52.9 - Noninfective gastroenteritis and colitis, unspecified Status: Acute (9) Hypomagnesemia: Code(s): E83.42 - Hypomagnesemia Status: Acute (10) Pain in both lower extremities: Code(s): M79.604 - Pain in right leg; M79.605 - Pain in left leg Status: Acute Plan 35-year-old female who presents with 1 week history of a nausea vomiting diarrhea and decreased p.o. intake. She was admitted recently for similar symptoms. She did improve at the time of discharge however over the past few days she started having worsening symptoms. She reports abdominal pain. She had history of cardiac arrest with ventricular fibrillation in October of 2024. In the ED her vitals were stable. Laboratory evaluation showed WBC of 4.7 hemoglobin of 15.1 indicating hemoconcentration platelet count of 214. Chemistry panel showed sodium 135 potassium 3.5 chloride 100 bicarbonate 20 BUN 10 creatinine 0.6 blood glucose of 116. Lactate was elevated at 2.6. LFT showed total bilirubin of 1.2 AST of 94 ALT 61 alkaline phosphatase 153. Lipase was normal at 114. TSH 1.13 normal. Magnesium 1.5. Urinalysis was negative for UTI. Repeat lactate 1.2 after IV fluid was normal. Patient was negative for influenza RSV and COVID. CT scan of abdomen pelvis showed mild colitis probably infectious in nature. Mild cystitis noted as well. Patient has been started on Rocephin and Flagyl. She is admitted in the setting for further treatment Colitis Stool studies in process. C diff negative. Continue Rocephin and metronidazole Nausea vomiting diarrhea on scopolamine patch. Compazine p.r.n. History of ESBL E coli UTI Hypomagnesemia replace and monitor Adrenal insufficiency has was diagnosed with low cortisol level in October 2024. Patient did not follow-up with Endocrinology.. Recheck cortisol this a.m. very low at 0.9 . Cosyntropin test performed with mild increase in cortisol level. Started on hydrocortisone History of cardiac arrest secondary to VFib on October 2024 follows EP at [facility]. Possible congenital QT prolongation syndrome. On nadolol. Also on LifeVest History of left ventricular thrombus on Xarelto Eating disorder Status post PEG tube placement 11/07/2019 fall Chronic LFT elevation marijuana use Tobacco abuse Anxiety depression Alcohol use disorder DVT prophylaxis on Xarelto Code status full code Subjective Date/time seen: 04/28/25 13:01 Interval history: no overnight events. She reports diarrhea still ongoing and is watery. Reports abdominal discomfort but able to take solid food. She states she ate pizza yesterday. She continues to complain of nausea. States scopolamine patch does not work For her. Review of Systems Review of Systems: All systems reviewed & are unremarkable except as noted in HPI and below Exam Narrative: GENERAL: Chronically ill-appearing underweight, and in no acute distress. HEAD: Normocephalic, atraumatic. EYES: PERRL and EOMI. ENT: Mucous membranes moist. CHEST: Clear to auscultation. No respiratory distress. HEART: Regular rate and rhythm Normal peripheral pulses. ABDOMEN: Soft, mild tenderness epigastric area, nondistended. G-tube in situ EXTREMITIES: Normal range of motion. No edema. SKIN: Warm, dry, no rash. NEURO: Alert and oriented x3. PSYCH: Normal mood and affect. Objective Data Vital Signs Vital Signs: Vital Signs - 24 hr 04/27/25 13:16 04/27/25 16:00 04/27/25 20:00 Temperature 98.2 F Pulse Rate 68 79 68 Respiratory Rate 16 Blood Pressure 110/78 Pulse Oximetry 100 Oxygen Delivery Fraction of Inspired Oxygen 04/27/25 21:00 04/27/25 21:05 04/27/25 22:00 Temperature 97.3 F L Pulse Rate 70 68 Respiratory Rate 20 18 Blood Pressure 108/50 L Pulse Oximetry 95 98 Oxygen Delivery Room Air Room Air Fraction of Inspired Oxygen 21 21 04/28/25 00:00 04/28/25 04:00 04/28/25 06:00 Temperature 97.1 F L Pulse Rate 63 51 L 66 Respiratory Rate 18 Blood Pressure 122/73 Pulse Oximetry 100 Oxygen Delivery Fraction of Inspired Oxygen 04/28/25 09:43 04/28/25 09:45 04/28/25 09:45 Temperature Pulse Rate 61 61 71 Respiratory Rate 18 Blood Pressure Pulse Oximetry 100 Oxygen Delivery Room Air Fraction of Inspired Oxygen 21 Intake/Output Intake/Output: Intake & Output 04/25/25 04/26/25 04/27/25 04/28/25 23:59 23:59 23:59 23:59 Intake Total 1720 3927.5 480 Output Total 400 Balance 1720 3927.5 80 Meds/Results Medications: Active Medications Generic Name Dose Route Start Last Admin Trade Name Dirkq PRN Reason Stop Dose Admin Buspirone HCl 15 mg 04/26/25 17:00 04/28/25 12:28 Buspirone Hcl 5 Mg Tablet FEED TUBE 15 mg TID JU Administration Ergocalciferol 1,250 mcg 05/02/25 09:00 Ergocalciferol (Vitamin D2) 1,250 Mcg (50,000 Units) Capsule FEED TUBE WEEKLY JU Famotidine 20 mg 04/26/25 21:00 04/27/25 21:55 Famotidine 20 Mg Tablet FEED TUBE 20 mg HS JU Administration Ferrous Sulfate 325 mg 04/26/25 17:00 04/28/25 12:25 Ferrous Sulfate 325 Mg Tablet PO 325 mg BID JU Administration Folic Acid 1 mg 04/27/25 09:00 04/28/25 09:45 Folic Acid 1 Mg Tablet FEED TUBE 1 mg DAILY JU Administration Hydrocortisone Sodium Succinate 100 mg 04/27/25 14:00 04/28/25 06:11 Hydrocortisone Sodium Succinate 100 Mg/2 Ml Vial IV PUSH 100 mg Q8HR JU Administration Ceftriaxone Sodium 1 gm/ 50 mls @ 100 mls/hr 04/27/25 12:00 04/28/25 12:25 Sodium Chloride IVPB 100 mls/hr Q24H JU Administration Metronidazole 500 mg in 100 mls @ 100 mls/hr 04/26/25 22:00 04/28/25 06:12 Flagyl 500 Mg/Iso Soln 100 Ml IVPB 100 mls/hr Q8HR JU Administration Sodium Chloride 1,000 mls @ 75 mls/hr 04/26/25 16:25 04/27/25 21:55 Normal Saline Iv IV CONT 75 mls/hr .[id number] JU Administration Ketorolac Tromethamine 15 mg 04/26/25 16:26 04/28/25 10:44 Ketorolac 15 Mg/Ml Vial (*Bkc) IV PUSH 15 mg Q6H PRN Administration Pain Rated 4-6 Magnesium Oxide 400 mg 04/27/25 09:00 04/28/25 09:43 Magnesium Oxide 400 Mg Tablet PO 400 mg DAILY JU Administration Megestrol Acetate 20 mg 04/26/25 17:00 04/28/25 09:45 Megestrol Acetate (*Chemo) 20 Mg Tablet FEED TUBE 20 mg BID JU Administration Methocarbamol 750 mg 04/26/25 21:00 04/28/25 12:28 Methocarbamol 750 Mg Tablet FEED TUBE 750 mg Q4HR JU Administration Nadolol 20 mg 04/27/25 09:00 04/28/25 09:43 Nadolol 20 Mg Tablet FEED TUBE 20 mg DAILY JU Administration Neomycin/Polymyxin/Bacitracin 1 applic 04/27/25 18:03 04/27/25 18:47 Neomycin/Polymyxin/Bacitracin Ointment 15 Gm Tube TOPICAL 1 applic QAM PRN Administration with PEG tube dressing changes Nicotine 1 patch 04/27/25 01:50 04/28/25 09:38 Nicotine (*Pbkc) 21 Mg Patch TRANSDERM 1 patch DAILY JU Administration Oxycodone/Acetaminophen 1 tablet 04/27/25 12:03 04/28/25 12:29 Oxycodone/Acetaminophen (*Crx) 5-325 Mg Tablet PO 1 tablet Q6H PRN Administration Pain Rated 7-10 Pantoprazole Sodium 40 mg 04/27/25 12:05 04/28/25 09:39 Pantoprazole Sodium Iv 40 Mg Vial IV PUSH 40 mg QAM JU Administration Potassium Chloride 10 meq 04/27/25 09:00 04/28/25 09:43 Potassium Chloride 20 Meq Packet (For Liquid) FEED TUBE 10 meq DAILY JU Administration Prochlorperazine Edisylate 10 mg 04/26/25 16:48 04/28/25 10:47 Prochlorperazine Edisylate 10 Mg/2 Ml Vial IV PUSH 10 mg Q6H PRN Administration Nausea And Vomiting Rivaroxaban 20 mg 04/26/25 17:00 04/27/25 18:46 Rivaroxaban 20 Mg Tablet PO 20 mg DAILY@1700 JU Administration Thiamine HCl 100 mg 04/27/25 09:00 04/28/25 09:45 Thiamine Hcl 100 Mg Tablet FEED TUBE 100 mg DAILY JU Administration Vitamin B Complex 1 cap 04/27/25 09:00 04/28/25 09:45 Vitamin B Complex Capsule FEED TUBE 1 cap QAM JU Administration Radiology Results: ITS Impressions Abdomen/Pelvis CT 04/26/25 09:54 IMPRESSION: 1. Mild colitis probably infectious in nature. 2. Mild cystitis. Labs Labs: Laboratory Results - last 24 hr 04/27/25 04/27/25 04/27/25 12:22 13:36 14:08 WBC RBC Hgb Hct MCV MCH MCHC RDW Plt Count MPV Immature Gran % (Auto) Neut % (Auto) Lymph % (Auto) [place] % (Auto) Eos % (Auto) Baso % (Auto) Lymph # (Auto) [place] # (Auto) Eos # (Auto) Baso # (Auto) Abs Immat Gran (auto) Absolute Neuts (auto) Absolute Nucleated RBC Band Neutrophils % Nucleated RBC % Platelet Estimate Macrocytosis Schistocytes Sodium Potassium Chloride Carbon Dioxide Anion Gap BUN Creatinine Estim Creat Clear Calc Estimated GFR Glucose Calcium Magnesium Total Bilirubin AST ALT Alkaline Phosphatase Total Protein Albumin Cortisol Baseline 0.99 Cortisol Resp 30 Min 11.00 Cortisol Resp 60 Min 15.80 04/28/25 05:35 WBC 6.8 RBC 3.03 L Hgb 10.9 L Hct 32.6 L MCV 107.6 H MCH 36.0 H MCHC 33.4 RDW 12.8 Plt Count 161 MPV 10.6 H Immature Gran % (Auto) 0.1 Neut % (Auto) 85.2 H Lymph % (Auto) 11.7 L [place] % (Auto) 3.0 Eos % (Auto) 0.0 Baso % (Auto) 0.0 L Lymph # (Auto) 0.79 L [place] # (Auto) 0.2 Eos # (Auto) 0.0 Baso # (Auto) 0.0 Abs Immat Gran (auto) 0.01 Absolute Neuts (auto) 5.8 Absolute Nucleated RBC 0.000 Band Neutrophils % Not Reportable Nucleated RBC % 0.0 Platelet Estimate Adequate Macrocytosis 1+ Schistocytes None seen Sodium 136 L Potassium 3.6 Chloride 111 H Carbon Dioxide 21 L Anion Gap 4 BUN 8 Creatinine 0.45 L Estim Creat Clear Calc 110 Estimated GFR > 60 Glucose 134 H Calcium 8.6 Magnesium 1.6 Total Bilirubin 0.3 AST 39 H ALT 34 Alkaline Phosphatase 85 Total Protein 5.2 L Albumin 2.8 L Cortisol Baseline Cortisol Resp 30 Min Cortisol Resp 60 Min
[2025-04-28] MEDS: SODIUM CHLORIDE 0.9% IV 1,000 ML 75 ML IV CONT (13:57)
[2025-04-28] MEDS: RIVAROXABAN 20 MG TABLET PO (16:07)
[2025-04-28] MEDS: FAMOTIDINE 20 MG TABLET FEED TUBE (21:46)
[2025-04-29] VITALS (12 sets, daily range): BP systolic 116–161; BP diastolic 75–95; PULSE 49–84; RESP 16–18; TEMP 36.2–36.8; O2SAT 99–100
[2025-04-29] MEDS: oxyCODONE/ACETAMINOPHEN (*CRX) 5-325 MG TABLET 1 TABLET PO ×4 (02:43→21:20)
[2025-04-29 05:57] LABS: Hematocrit 32.4 % (37.0-47.0); Hemoglobin 10.8 g/dL (12.0-15.0); Immature Granulocyte Percent A 0.6 % (0-0.5); Lymphocytes Absolute Auto 1.71 K/mm3 (0.9-3.2); Mean Corpuscular HGB Conc 33.3 g/dl (32-36); Mean Corpuscular Hemoglobin 35.8 pg (26-34); Mean Corpuscular Volume 107.3 fl (80-100); Nucleated Red Blood Cells Absolute Auto 0.000 K/mm3 (0.0-0.012); Nucleated Red Blood Cells Perc 0.0 % (0.0-0.2); Platelet Count Result 151 k/mm3 (150-375); Red Blood Count 3.02 M/mm3 (4.2-5.4); White Blood Count 10.8 K/mm3 (4.5-10.0)
[2025-04-29] MEDS: HYDROCORTISONE SODIUM SUCCINATE 100 MG/2 ML VIAL IV PUSH ×3 (06:01→21:21)
[2025-04-29] MEDS: metroNIDAZOLE 500 MG/ISO 100ML 500 MG/100 ML BAG 100 MG IVPB ×2 (06:02→13:12)
[2025-04-29 06:23] LABS: Alanine Aminotransferase 34 U/L (6-35); Albumin Level 2.6 g/dL (3.5-5.1); Alkaline Phosphatase 86 U/L (38-126); Anion Gap 2 mmol/L (4-12); Aspartate Amino Transferase 47 U/L (14-36); Bilirubin,Total 0.2 mg/dL (0.2-1.3); Blood Urea Nitrogen 6 mg/dL (7-17); Calcium 8.3 mg/dL (8.4-10.2); Carbon Dioxide 23 mmol/L (22-30); Chloride 108 mmol/L (98-107); Estimated CRCL calculation 110 ml/min; Estimated Glomerular Filt Rate > 60; Glucose 121 mg/dL (65-110); Magnesium 2.0 mg/dL (1.6-2.3); Potassium 3.3 mmol/L (3.4-5.0); Sodium 133 mmol/L (137-145); Total Protein 5.1 g/dL (6.3-8.2)
[2025-04-29] MEDS: KETOROLAC 15 MG/ML VIAL (*BKC) IV PUSH ×2 (06:29→12:29)
[2025-04-29 07:33] LABS: Anisocytosis 1+; Macrocytosis 1+ (NORMAL)
[2025-04-29 07:34] LABS: Schistocytes None Seen
[2025-04-29] MEDS: MEGESTROL ACETATE (*CHEMO) 20 MG TABLET FEED TUBE ×2 (08:21→16:12)
[2025-04-29] MEDS: FOLIC ACID 1 MG TABLET FEED TUBE (08:21)
[2025-04-29] MEDS: FERROUS SULFATE 325 MG TABLET PO ×2 (08:21→16:13)
[2025-04-29] MEDS: MAGNESIUM OXIDE 400 MG TABLET PO (08:21)
[2025-04-29] MEDS: NICOTINE (*PBKC) 21 MG PATCH 1 PATCH TRANSDERM (08:23)
[2025-04-29] MEDS: THIAMINE HCL 100 MG TABLET FEED TUBE (08:23)
[2025-04-29] MEDS: VITAMIN B COMPLEX CAPSULE 1 CAP FEED TUBE (08:23)
[2025-04-29] MEDS: POTASSIUM CHLORIDE 20 MEQ PACKET (FOR LIQUID) 10 MEQ FEED TUBE (08:24)
[2025-04-29] MEDS: PANTOPRAZOLE SODIUM IV 40 MG VIAL IV PUSH (08:24)
[2025-04-29] MEDS: cefTRIAXone 1 GM in SODIUM CHLORIDE 0.9% IV 50 ML 100 ML IVPB (11:30)
--- NOTE | 2025-04-29 11:35 | PCDIET ---
Nutrition note: RD screened for pt PEG tube, known from past admissions. Pt has a PEG tube placed for past poor intake, pt is not currently using the PEG tube for feeding and is eating well, 50-100% since admission. Colitis is seen. Still having some diarrhea. Will continue to monitor for nutrition needs.
[2025-04-29] MEDS: SODIUM CHLORIDE 0.9% IV 1,000 ML 75 ML IV CONT ×2 (12:08→21:48)
[2025-04-29] MEDS: POTASSIUM CHLORIDE 20 MEQ PACKET (FOR LIQUID) 40 MEQ PO (12:26)
[2025-04-29 13:35] LABS: CRP < 0.5 mg/dL (<1.0)
--- NOTE | 2025-04-29 14:26 | P.PNIM_ITS ---
Progress Note: A&P Assessment and Plan (1) Eating disorder, unspecified: Code(s): F50.9 - Eating disorder, unspecified Status: Acute (2) Depression with anxiety: Code(s): F41.8 - Other specified anxiety disorders Status: Acute (3) Prolonged Q-T interval on ECG: Code(s): R94.31 - Abnormal electrocardiogram [ECG] [EKG] Status: Acute (4) History of torsades de pointes: Code(s): Z86.79 - Personal history of other diseases of the circulatory system Status: Acute (5) Adrenal insufficiency: Code(s): E27.40 - Unspecified adrenocortical insufficiency Status: Acute (6) Severe protein-calorie malnutrition: Code(s): E43 - Unspecified severe protein-calorie malnutrition Status: Acute (7) Nausea & vomiting: Code(s): R11.2 - Nausea with vomiting, unspecified Status: Acute (8) Colitis: Code(s): K52.9 - Noninfective gastroenteritis and colitis, unspecified Status: Acute (9) Hypomagnesemia: Code(s): E83.42 - Hypomagnesemia Status: Acute (10) Pain in both lower extremities: Code(s): M79.604 - Pain in right leg; M79.605 - Pain in left leg Status: Acute Plan 35-year-old female who presents with 1 week history of a nausea vomiting diarrhea and decreased p.o. intake. She was admitted recently for similar symptoms. She did improve at the time of discharge however over the past few days she started having worsening symptoms. She reports abdominal pain. She had history of cardiac arrest with ventricular fibrillation in October of 2024. In the ED her vitals were stable. Laboratory evaluation showed WBC of 4.7 hemoglobin of 15.1 indicating hemoconcentration platelet count of 214. Chemistry panel showed sodium 135 potassium 3.5 chloride 100 bicarbonate 20 BUN 10 creatinine 0.6 blood glucose of 116. Lactate was elevated at 2.6. LFT showed total bilirubin of 1.2 AST of 94 ALT 61 alkaline phosphatase 153. Lipase was normal at 114. TSH 1.13 normal. Magnesium 1.5. Urinalysis was negative for UTI. Repeat lactate 1.2 after IV fluid was normal. Patient was negative for influenza RSV and COVID. CT scan of abdomen pelvis showed mild colitis probably infectious in nature. Mild cystitis noted as well. Patient has been started on Rocephin and Flagyl. She is admitted in the setting for further treatment Colitis Stool studies in process. C diff negative. Continue Rocephin and metronidazole. GI consultation Nausea vomiting diarrhea on scopolamine patch. Compazine p.r.n. History of ESBL E coli UTI Hypomagnesemia replace and monitor Adrenal insufficiency has was diagnosed with low cortisol level in October 2024. Patient did not follow-up with Endocrinology.. Recheck cortisol this a.m. very low at 0.9 . Cosyntropin test performed with mild increase in cortisol level. Started on hydrocortisone History of cardiac arrest secondary to VFib on October 2024 follows EP [facility]. Possible congenital QT prolongation syndrome. On nadolol. Also on LifeVest History of left ventricular thrombus on Xarelto Eating disorder Status post PEG tube placement 11/07/2023 Chronic LFT elevation marijuana use Tobacco abuse Anxiety depression Alcohol use disorder DVT prophylaxis on Xarelto Code status full code Subjective Date/time seen: 04/29/25 14:26 Interval history: Patient continues to report some nausea and 8-10 episodes of diarrhea which is loose and watery. No fever chills. Review of Systems Review of Systems: All systems reviewed & are unremarkable except as noted in HPI and below Exam Narrative: GENERAL: Chronically ill-appearing underweight, and in no acute distress. HEAD: Normocephalic, atraumatic. EYES: PERRL and EOMI. ENT: Mucous membranes moist. CHEST: Clear to auscultation. No respiratory distress. HEART: Regular rate and rhythm Normal peripheral pulses. ABDOMEN: Soft, mild tenderness epigastric area, nondistended. G-tube in situ EXTREMITIES: Normal range of motion. No edema. SKIN: Warm, dry, no rash. NEURO: Alert and oriented x3. PSYCH: Normal mood and affect. Objective Data Vital Signs Vital Signs: Vital Signs - 24 hr 04/28/25 16:00 04/28/25 19:44 04/28/25 19:45 Temperature 98.1 F Pulse Rate 69 64 Respiratory Rate 16 Blood Pressure 108/67 Pulse Oximetry 95 100 Oxygen Delivery Room Air Fraction of Inspired Oxygen 21 04/28/25 20:00 04/29/25 00:00 04/29/25 04:00 Temperature Pulse Rate 66 84 50 L Respiratory Rate Blood Pressure Pulse Oximetry Oxygen Delivery Fraction of Inspired Oxygen 04/29/25 06:00 04/29/25 07:46 04/29/25 08:22 Temperature 98.2 F 98.1 F Pulse Rate 63 57 L 53 L Respiratory Rate 16 18 Blood Pressure 132/85 136/95 H Pulse Oximetry 99 100 Oxygen Delivery Fraction of Inspired Oxygen 04/29/25 08:24 04/29/25 08:24 04/29/25 08:30 Temperature 97.6 F Pulse Rate 53 L 49 L 53 L Respiratory Rate 16 16 Blood Pressure 161/87 H Pulse Oximetry 100 100 Oxygen Delivery Room Air Fraction of Inspired Oxygen 21 04/29/25 12:00 04/29/25 14:07 Temperature 98.2 F Pulse Rate 55 L 74 Respiratory Rate 18 Blood Pressure 116/85 Pulse Oximetry 100 Oxygen Delivery Fraction of Inspired Oxygen Intake/Output Intake/Output: Intake & Output 04/26/25 04/27/25 04/28/25 04/29/25 23:59 23:59 23:59 23:59 Intake Total 1720 3927.5 4100 1820 Output Total 400 Balance 1720 3927.5 3700 1820 Meds/Results Medications: Active Medications Generic Name Dose Route Start Last Admin Trade Name Freq PRN Reason Stop Dose Admin Buspirone HCl 15 mg 04/26/25 17:00 04/29/25 12:26 Buspirone Hcl 5 Mg Tablet FEED TUBE 15 mg TID JU Administration Ergocalciferol 1,250 mcg 05/02/25 09:00 Ergocalciferol (Vitamin D2) 1,250 Mcg (50,000 Units) Capsule FEED TUBE WEEKLY JU Famotidine 20 mg 04/26/25 21:00 04/28/25 21:46 Famotidine 20 Mg Tablet FEED TUBE 20 mg HS JU Administration Ferrous Sulfate 325 mg 04/26/25 17:00 04/29/25 08:21 Ferrous Sulfate 325 Mg Tablet PO 325 mg BID JU Administration Folic Acid 1 mg 04/27/25 09:00 04/29/25 08:21 Folic Acid 1 Mg Tablet FEED TUBE 1 mg DAILY JU Administration Hydrocortisone Sodium Succinate 100 mg 04/27/25 14:00 04/29/25 13:12 Hydrocortisone Sodium Succinate 100 Mg/2 Ml Vial IV PUSH 100 mg Q8HR JU Administration Ceftriaxone Sodium 1 gm/ 50 mls @ 100 mls/hr 04/27/25 12:00 04/29/25 11:30 Sodium Chloride IVPB 100 mls/hr Q24H JU Administration Metronidazole 500 mg in 100 mls @ 100 mls/hr 04/26/25 22:00 04/29/25 13:12 Flagyl 500 Mg/Iso Soln 100 Ml IVPB 100 mls/hr Q8HR JU Administration Sodium Chloride 1,000 mls @ 75 mls/hr 04/26/25 16:25 04/29/25 12:08 Normal Saline Iv IV CONT 75 mls/hr .[id number] JU Administration Ketorolac Tromethamine 15 mg 04/26/25 16:26 04/29/25 12:29 Ketorolac 15 Mg/Ml Vial (*Bkc) IV PUSH 15 mg Q6H PRN Administration Pain Rated 4-6 Magnesium Oxide 400 mg 04/27/25 09:00 04/29/25 08:21 Magnesium Oxide 400 Mg Tablet PO 400 mg DAILY JU Administration Megestrol Acetate 20 mg 04/26/25 17:00 04/29/25 08:21 Megestrol Acetate (*Chemo) 20 Mg Tablet FEED TUBE 20 mg BID JU Administration Methocarbamol 750 mg 04/26/25 21:00 04/29/25 12:26 Methocarbamol 750 Mg Tablet FEED TUBE 750 mg Q4HR JU Administration Nadolol 20 mg 04/27/25 09:00 04/29/25 08:22 Nadolol 20 Mg Tablet FEED TUBE 20 mg DAILY JU Administration Neomycin/Polymyxin/Bacitracin 1 applic 04/27/25 18:03 04/27/25 18:47 Neomycin/Polymyxin/Bacitracin Ointment 15 Gm Tube TOPICAL 1 applic QAM PRN Administration with PEG tube dressing changes Nicotine 1 patch 04/27/25 01:50 04/29/25 08:23 Nicotine (*Pbkc) 21 Mg Patch TRANSDERM 1 patch DAILY JU Administration Oxycodone/Acetaminophen 1 tablet 04/27/25 12:03 04/29/25 08:44 Oxycodone/Acetaminophen (*Crx) 5-325 Mg Tablet PO 1 tablet Q6H PRN Administration Pain Rated 7-10 Pantoprazole Sodium 40 mg 04/27/25 12:05 04/29/25 08:24 Pantoprazole Sodium Iv 40 Mg Vial IV PUSH 40 mg QAM JU Administration Potassium Chloride 10 meq 04/27/25 09:00 04/29/25 08:24 Potassium Chloride 20 Meq Packet (For Liquid) FEED TUBE 10 meq DAILY JU Administration Prochlorperazine Edisylate 10 mg 04/26/25 16:48 04/28/25 16:17 Prochlorperazine Edisylate 10 Mg/2 Ml Vial IV PUSH 10 mg Q6H PRN Administration Nausea And Vomiting Rivaroxaban 20 mg 04/26/25 17:00 04/28/25 16:07 Rivaroxaban 20 Mg Tablet PO 20 mg DAILY@1700 JU Administration Scopolamine 1 patch 04/29/25 12:30 04/29/25 12:35 Scopolamine 1 Mg Patch TRANSDERM Not Given Q72HR [facility] Thiamine HCl 100 mg 04/27/25 09:00 04/29/25 08:23 Thiamine Hcl 100 Mg Tablet FEED TUBE 100 mg DAILY JU Administration Vitamin B Complex 1 cap 04/27/25 09:00 04/29/25 08:23 Vitamin B Complex Capsule FEED TUBE 1 cap QAM JU Administration Radiology Results: ITS Impressions Abdomen/Pelvis CT 04/26/25 09:54 IMPRESSION: 1. Mild colitis probably infectious in nature. 2. Mild cystitis. Labs Labs: Laboratory Results - last 24 hr 04/29/25 04/29/25 05:39 13:07 WBC 10.8 H RBC 3.02 L Hgb 10.8 L Hct 32.4 L MCV 107.3 H MCH 35.8 H MCHC 33.3 RDW 12.6 Plt Count 151 MPV 11.1 H Immature Gran % (Auto) 0.6 H Neut % (Auto) 80.4 H Lymph % (Auto) 15.9 L [place] % (Auto) 2.9 Eos % (Auto) 0.0 Baso % (Auto) 0.2 Lymph # (Auto) 1.71 [place] # (Auto) 0.3 Eos # (Auto) 0.0 Baso # (Auto) 0.0 Abs Immat Gran (auto) 0.06 H Absolute Neuts (auto) 8.7 H Absolute Nucleated RBC 0.000 Band Neutrophils % Not Reportable Nucleated RBC % 0.0 Platelet Estimate Adequate Anisocytosis 1+ Macrocytosis 1+ Schistocytes None seen ESR 17 Sodium 133 L Potassium 3.3 L Chloride 108 H Carbon Dioxide 23 Anion Gap 2 L BUN 6 L Creatinine 0.45 L Estim Creat Clear Calc 110 Estimated GFR > 60 Glucose 121 H Calcium 8.3 L Magnesium 2.0 Total Bilirubin 0.2 AST 47 H ALT 34 Alkaline Phosphatase 86 C-Reactive Protein < 0.5 Total Protein 5.1 L Albumin 2.6 L
[2025-04-29] MEDS: RIVAROXABAN 20 MG TABLET PO (16:12)
--- NOTE | 2025-04-29 16:16 | WPDGICN ---
Assessment and Plan Assessment and plan (1) Diarrhea: Code(s): R19.7 - Diarrhea, unspecified Status: Acute Assessment and Plan: Given the absence of clinical or endoscopic evidence for inflammatory bowel disease , and the fact that biopsies ruled out microscopic colitis one year ago, the mild colonic wall thickening noted on CT scan is insufficient for a colitis diagnosis (infectious or inflammatory). Severe hypolbuminemia from malnutrition can explain some colonic wall edema giving an impresion of colitis on CT scan. Instead, her clinical picture?abdominal pain concurrent with diarrhea, relieved by defecation?is highly compatible with Severe Irritable Bowel Syndrome (IBS). Therefore, our focus will shift to symptom management and diarrhea control. We will discontinue the broad-spectrum intravenous antibiotics . She will be started on a trial of Rifaximin (550?mg twice daily for 14 days). Symptomatic treatment with loperamide will be instituted immediately. If Rifaximin is unsuccessful, we will transition to an outpatient trial of Viberzi (eluxadoline) vs neuromodulators. She has never been followed in GI clinic, (anywhere) and she goes from home to ER, gets admitted and the goes home again. From now on her management should be more proactive and will require close follow up in our clinic periodically. GI Consult Note Consult date/time: 04/29/25 16:16 Reason for consult: Nausea-diarrhea HPI: Ester León is a 35-year-old female with a complex history of Avoidant/Restrictive Food Intake Disorder (ARFID), status post PEG tube placement in 2023. Her recent history is significant for a ventricular fibrillation and cardiac arrest in October of this year, requiring placement of a defibrillator and anticoagulation. She was recently readmitted for persistent, chronic diarrhea. One year ago, a colonoscopy performed at our hospital was normal, with biopsies ruling out microscopic colitis. The patient currently maintains oral intake but uses the PEG tube primarily for medication administration. Notably, she also endorses frequent episodes of lower crampy abdominal pain, of moderate intensity, which generally get relieved with defecation. she was recently discharged (04/20) and readmitted on 04/26/2025, showing signs of volume depletion and her hemoglobin dropped from 15.1 to her baseline of 10.8 (on 04/28/2025) after volume repletion. Pertinent laboratory data today showed Na 133. K 3.3, Ca 8.3 [address] A CT scan suggested mild, possibly infectious colitis, for which she was empirically started on ceftriaxone and metronidazole. Review of Systems Review of Systems: All systems reviewed & are unremarkable except as noted in HPI and below PMFSH Past Medical History Medical History Cardiac arrest with ventricular fibrillation October 2024 Adrenal insufficiency Depression with anxiety Avoidant/restrictive food intake disorder Cannabis abuse Elevated LFTs Mitral valve prolapse Surgical History Surgical History History of percutaneous endoscopic gastrostomy Family History Family History Mother Heart attack Mitral valve prolapse Grandparent Cancer Grandparent Mitral valve prolapse Social History Social History Social History: Surrogate medical decision maker: Jorge Luis Centeno, significant other. Code status: Full code. Smoking packs per day: 0.5 Smoking cigarettes per day: 10.0 Years smoked: 20 Smoking pack-years: 10.00 Smoking status: Current every day smoker Tobacco type: cigarettes Alcohol intake: current Drinks per week: 5 Alcohol use details: States she drinks 1 pint a week Substance use: never Substance use type: marijuana Other substance usage details: weekly Last use: 01/22/2025 Do You Feel Safe in your Home?: Yes Lack of Transportation: No Lack of Food: Never True Current Housing: I Have Housing Concerned About Future Housing: No Difficulty Paying Gas/Electric Bills: No Difficulty Paying for Meds: No Currently Unemployed: No Education: High School Diploma/GED Difficulty w/ Childcare or Family Care: No Living arrangements: with family Additional living arrangements comments: with 7 year old son and fianc? Occupation/Education: unemployed Spiritual care concerns: No Agree to blood products: Yes Meds Home Medications and Allergies Home Medications ?Medication ?Instructions ?Recorded ?Confirmed ?Type ferrous sulfate 325 mg (65 mg 325 mg PO BID 03/28/24 04/26/25 History iron) tablet,delayed release folic acid 1 mg tablet 1 mg feeding tube DAILY 03/28/24 04/26/25 History megestrol 20 mg tablet 20 mg feeding tube BID 03/28/24 04/26/25 History thiamine HCl (vitamin B1) 100 mg 100 mg feeding tube DAILY 03/28/24 04/26/25 History tablet vitamin B complex (Vitamins B 1 cap feeding tube QAM 03/28/24 04/26/25 History Complex capsule) lactose-reduced food with fiber See Rx Instructions .Route .COMPLEX 08/07/24 04/26/25 History 0.06 gram-1.5 kcal/mL oral liquid (Jevity 1.5 Chriss) Held on 04/26/25. Instructions: Order Change potassium chloride 10 mEq 10 meq feeding tube DAILY #60 caps 08/15/24 04/26/25 Rx capsule,extended release buspirone 15 mg tablet 15 mg feeding tube TID 01/08/25 04/26/25 History cyanocobalamin (vitamin B-12) 1,000 mcg feeding tube MONTHLY 01/08/25 04/26/25 History 1,000 mcg tablet Held on 04/26/25. Instructions: Patient no longer taking nicotine 14 mg/24 hr daily 1 patch transdermal Q24H 01/08/25 04/26/25 History transdermal patch Held on 04/26/25. Instructions: Patient smokes rivaroxaban 20 mg tablet (Xarelto) 20 mg PO DAILY@1700 #30 tabs 01/12/25 04/26/25 Rx ergocalciferol (vitamin D2) 1,250 1,250 mcg feeding tube WEEKLY 02/13/25 04/26/25 History mcg (50,000 unit) capsule famotidine 20 mg tablet 20 mg PO HS 02/13/25 04/26/25 History magnesium oxide 400 mg (241.3 mg 420 mg feeding tube DAILY 02/13/25 04/26/25 History magnesium) tablet Held on 04/26/25. Instructions: Order Change methocarbamol 750 mg tablet 750 mg feeding tube .q4hr 02/13/25 04/26/25 History nadolol 20 mg tablet 20 mg feeding tube DAILY 02/13/25 04/26/25 History amoxicillin 875 mg-potassium 1 tablet PO Q12H #12 tabs 04/20/25 04/26/25 Rx clavulanate 125 mg tablet magnesium oxide 420 mg tablet 420 mg PO DAILY 04/26/25 04/26/25 History neomycin-bacitracn Zn-polymyx 3.5 1 applic topical DAILY PRN with 04/27/25 04/27/25 History mg-400 unit-5,000 unit/gram top PEG tube dressing changes as needed oint (Antibiotic([id number])) Allergies Allergy/AdvReac Type Severity Reaction Status Date / Time latex Allergy Rash Verified 04/26/25 08:42 melatonin AdvReac Mild chest Verified 04/26/25 08:42 heaviness Vital Signs Vital Signs - 24 hr 04/28/25 19:44 04/28/25 19:45 04/28/25 20:00 Temperature 98.1 F Pulse Rate 64 66 Respiratory Rate 16 Blood Pressure 108/67 Pulse Oximetry 95 100 Oxygen Delivery Room Air Fraction of Inspired Oxygen 21 04/29/25 00:00 04/29/25 04:00 04/29/25 06:00 Temperature 98.2 F Pulse Rate 84 50 L 63 Respiratory Rate 16 Blood Pressure 132/85 Pulse Oximetry 99 Oxygen Delivery Fraction of Inspired Oxygen 04/29/25 07:46 04/29/25 08:22 04/29/25 08:24 Temperature 98.1 F Pulse Rate 57 L 53 L 53 L Respiratory Rate 18 16 Blood Pressure 136/95 H Pulse Oximetry 100 100 Oxygen Delivery Room Air Fraction of Inspired Oxygen 21 04/29/25 08:24 04/29/25 08:30 04/29/25 12:00 Temperature 97.6 F Pulse Rate 49 L 53 L 55 L Respiratory Rate 16 Blood Pressure 161/87 H Pulse Oximetry 100 Oxygen Delivery Fraction of Inspired Oxygen 04/29/25 14:07 Temperature 98.2 F Pulse Rate 74 Respiratory Rate 18 Blood Pressure 116/85 Pulse Oximetry 100 Oxygen Delivery Fraction of Inspired Oxygen Exam Narrative: sligthly cushingoid face. O x 3 abdomen : PEG in place, non tender, non distended, no hepatomegaly, bowel sounds present Results Labs 04/29/25 05:39 04/29/25 05:39 Labs: Short CBC 04/29/25 Range/Units 05:39 WBC 10.8 H (4.5-10.0) K/mm3 Hgb 10.8 L (12.0-15.0) g/dL Hct 32.4 L (37.0-47.0) % Plt Count 151 (150-375) k/mm3 BMP 04/29/25 05:39 Sodium 133 L Potassium 3.3 L Chloride 108 H Carbon Dioxide 23 BUN 6 L Creatinine 0.45 L Glucose 121 H Calcium 8.3 L Liver Function 04/29/25 Range/Units 05:39 Total Bilirubin 0.2 (0.2-1.3) mg/dL AST 47 H (14-36) U/L ALT 34 (6-35) U/L Alkaline Phosphatase 86 (38-126) U/L Albumin 2.6 L (3.5-5.1) g/dL
[2025-04-29] MEDS: LOPERAMIDE HCL 2 MG CAPSULE PO (16:49)
[2025-04-29] MEDS: FAMOTIDINE 20 MG TABLET FEED TUBE (21:21)
[2025-04-30] VITALS (8 sets, daily range): BP systolic 112–154; BP diastolic 79–88; PULSE 44–71; RESP 16–18; TEMP 36.1–36.5; O2SAT 99–100
[2025-04-30] MEDS: oxyCODONE/ACETAMINOPHEN (*CRX) 5-325 MG TABLET 1 TABLET PO ×2 (05:20→11:38)
[2025-04-30] MEDS: HYDROCORTISONE SODIUM SUCCINATE 100 MG/2 ML VIAL IV PUSH ×2 (05:20→13:42)
[2025-04-30 05:53] LABS: Hematocrit 34.1 % (37.0-47.0); Hemoglobin 11.4 g/dL (12.0-15.0); Immature Granulocyte Percent A 0.6 % (0-0.5); Lymphocytes Absolute Auto 2.04 K/mm3 (0.9-3.2); Mean Corpuscular HGB Conc 33.4 g/dl (32-36); Mean Corpuscular Hemoglobin 35.8 pg (26-34); Mean Corpuscular Volume 107.2 fl (80-100); Nucleated Red Blood Cells Absolute Auto 0.000 K/mm3 (0.0-0.012); Nucleated Red Blood Cells Perc 0.0 % (0.0-0.2); Platelet Count Result 147 k/mm3 (150-375); Red Blood Count 3.18 M/mm3 (4.2-5.4); White Blood Count 10.9 K/mm3 (4.5-10.0)
[2025-04-30 06:22] LABS: Alanine Aminotransferase 38 U/L (6-35); Albumin Level 2.5 g/dL (3.5-5.1); Alkaline Phosphatase 74 U/L (38-126); Anion Gap 4 mmol/L (4-12); Aspartate Amino Transferase 45 U/L (14-36); Bilirubin,Total 0.2 mg/dL (0.2-1.3); Blood Urea Nitrogen 8 mg/dL (7-17); Calcium 8.2 mg/dL (8.4-10.2); Carbon Dioxide 21 mmol/L (22-30); Chloride 110 mmol/L (98-107); Estimated CRCL calculation 110 ml/min; Estimated Glomerular Filt Rate > 60; Glucose 114 mg/dL (65-110); Magnesium 1.8 mg/dL (1.6-2.3); Potassium 3.5 mmol/L (3.4-5.0); Sodium 135 mmol/L (137-145); Total Protein 5.0 g/dL (6.3-8.2)
[2025-04-30 06:38] LABS: Macrocytosis 1+ (NORMAL); Schistocytes None Seen
--- NOTE | 2025-04-30 07:23 | P.PNGI_ITS ---
Progress Note: A&P Assessment and Plan (1) Diarrhea: Code(s): R19.7 - Diarrhea, unspecified Status: Acute Assessment and Plan: Patient with chronic diarrhea associated with abdominal pain crisis, clinically compatible with IBS-diarrhea. As stated in yesterday's note, the patient should be focused as having a functional problem since main organic diseases such as IBD or microscopic colitis have been appropriately ruled out. She should be discharged on rifaximin 550 mg b.i.d. for 14 days and loperamide 2-3 doses per day to control diarrhea. More importantly, she should be followed in our clinic within the next 1 or 2 weeks. Subjective Date/time seen: 04/30/25 07:23 Interval history: The patient feels much better, only 1 episode of soft stools, no abdominal pain, no vomiting. Exam Narrative: Abdomen: Unchanged from yes Objective Data Vital Signs Vital Signs: Vital Signs - 24 hr 04/29/25 07:46 04/29/25 08:22 04/29/25 08:24 Temperature 98.1 F Pulse Rate 57 L 53 L 53 L Respiratory Rate 18 16 Blood Pressure 136/95 H Pulse Oximetry 100 100 Oxygen Delivery Room Air Fraction of Inspired Oxygen 21 04/29/25 08:24 04/29/25 08:30 04/29/25 12:00 Temperature 97.6 F Pulse Rate 49 L 53 L 55 L Respiratory Rate 16 Blood Pressure 161/87 H Pulse Oximetry 100 Oxygen Delivery Fraction of Inspired Oxygen 04/29/25 14:07 04/29/25 16:00 04/29/25 20:00 Temperature 98.2 F Pulse Rate 74 50 L 50 L Respiratory Rate 18 Blood Pressure 116/85 Pulse Oximetry 100 Oxygen Delivery Fraction of Inspired Oxygen 04/29/25 22:00 04/30/25 00:00 04/30/25 04:00 Temperature 97.2 F L Pulse Rate 63 51 L 49 L Respiratory Rate 18 Blood Pressure 116/75 Pulse Oximetry 100 Oxygen Delivery Fraction of Inspired Oxygen Intake/Output Intake/Output: Intake & Output 04/27/25 04/28/25 04/29/25 04/30/25 23:59 23:59 23:59 23:59 Intake Total 3927.5 4100 3145 602.5 Output Total 400 Balance 3927.5 3700 3145 602.5 Meds/Results Medications: Active Medications Generic Name Dose Route Start Last Admin Trade Name Freq PRN Reason Stop Dose Admin Buspirone HCl 15 mg 04/26/25 17:00 04/29/25 16:12 Buspirone Hcl 5 Mg Tablet FEED TUBE 15 mg TID JU Administration Ergocalciferol 1,250 mcg 05/02/25 09:00 Ergocalciferol (Vitamin D2) 1,250 Mcg (50,000 Units) Capsule FEED TUBE WEEKLY JU Famotidine 20 mg 04/26/25 21:00 04/29/25 21:21 Famotidine 20 Mg Tablet FEED TUBE 20 mg HS JU Administration Ferrous Sulfate 325 mg 04/26/25 17:00 04/29/25 16:13 Ferrous Sulfate 325 Mg Tablet PO 325 mg BID JU Administration Folic Acid 1 mg 04/27/25 09:00 04/29/25 08:21 Folic Acid 1 Mg Tablet FEED TUBE 1 mg DAILY JU Administration Hydrocortisone Sodium Succinate 100 mg 04/27/25 14:00 04/30/25 05:20 Hydrocortisone Sodium Succinate 100 Mg/2 Ml Vial IV PUSH 100 mg Q8HR JU Administration Sodium Chloride 1,000 mls @ 75 mls/hr 04/26/25 16:25 04/30/25 05:50 Normal Saline Iv IV CONT 0 mls/hr .[id number] JU Infusion Ketorolac Tromethamine 15 mg 04/26/25 16:26 04/29/25 12:29 Ketorolac 15 Mg/Ml Vial (*Bkc) IV PUSH 15 mg Q6H PRN Administration Pain Rated 4-6 Loperamide HCl 2 mg 04/29/25 16:32 04/29/25 16:49 Loperamide Hcl 2 Mg Capsule PO 2 mg PRN PRN Administration Diarrhea Magnesium Oxide 400 mg 04/27/25 09:00 04/29/25 08:21 Magnesium Oxide 400 Mg Tablet PO 400 mg DAILY JU Administration Megestrol Acetate 20 mg 04/26/25 17:00 04/29/25 16:12 Megestrol Acetate (*Chemo) 20 Mg Tablet FEED TUBE 20 mg BID JU Administration Methocarbamol 750 mg 04/26/25 21:00 04/30/25 06:33 Methocarbamol 750 Mg Tablet FEED TUBE 750 mg Q4HR JU Administration Nadolol 20 mg 04/27/25 09:00 04/29/25 08:22 Nadolol 20 Mg Tablet FEED TUBE 20 mg DAILY JU Administration Neomycin/Polymyxin/Bacitracin 1 applic 04/27/25 18:03 04/27/25 18:47 Neomycin/Polymyxin/Bacitracin Ointment 15 Gm Tube TOPICAL 1 applic QAM PRN Administration with PEG tube dressing changes Nicotine 1 patch 04/27/25 01:50 04/29/25 08:23 Nicotine (*Pbkc) 21 Mg Patch TRANSDERM 1 patch DAILY JU Administration Oxycodone/Acetaminophen 1 tablet 04/27/25 12:03 04/30/25 05:20 Oxycodone/Acetaminophen (*Crx) 5-325 Mg Tablet PO 1 tablet Q6H PRN Administration Pain Rated 7-10 Potassium Chloride 10 meq 04/27/25 09:00 04/29/25 08:24 Potassium Chloride 20 Meq Packet (For Liquid) FEED TUBE 10 meq DAILY JU Administration Prochlorperazine Edisylate 10 mg 04/26/25 16:48 04/28/25 16:17 Prochlorperazine Edisylate 10 Mg/2 Ml Vial IV PUSH 10 mg Q6H PRN Administration Nausea And Vomiting Rifaximin 550 mg 04/29/25 21:00 04/29/25 21:20 Rifaximin 550 Mg Tablet PO 550 mg Q12HR JU Administration Rivaroxaban 20 mg 04/26/25 17:00 04/29/25 16:12 Rivaroxaban 20 Mg Tablet PO 20 mg DAILY@1700 JU Administration Scopolamine 1 patch 04/29/25 12:30 04/29/25 12:35 Scopolamine 1 Mg Patch TRANSDERM Not Given Q72HR [facility] Thiamine HCl 100 mg 04/27/25 09:00 04/29/25 08:23 Thiamine Hcl 100 Mg Tablet FEED TUBE 100 mg DAILY JU Administration Vitamin B Complex 1 cap 04/27/25 09:00 04/29/25 08:23 Vitamin B Complex Capsule FEED TUBE 1 cap QAM JU Administration Radiology Results: ITS Impressions Abdomen/Pelvis CT 04/26/25 09:54 IMPRESSION: 1. Mild colitis probably infectious in nature. 2. Mild cystitis. Labs Labs: Laboratory Results - last 24 hr 04/29/25 04/29/25 04/30/25 05:39 13:07 05:44 WBC 10.8 H 10.9 H RBC 3.02 L 3.18 L Hgb 10.8 L 11.4 L Hct 32.4 L 34.1 L MCV 107.3 H 107.2 H MCH 35.8 H 35.8 H MCHC 33.3 33.4 RDW 12.6 12.8 Plt Count 151 147 L MPV 11.1 H 10.8 H Immature Gran % (Auto) 0.6 H 0.6 H Neut % (Auto) 80.4 H 76.7 H Lymph % (Auto) 15.9 L 18.7 [place] % (Auto) 2.9 3.9 Eos % (Auto) 0.0 0.0 Baso % (Auto) 0.2 0.1 L Lymph # (Auto) 1.71 2.04 [place] # (Auto) 0.3 0.4 Eos # (Auto) 0.0 0.0 Baso # (Auto) 0.0 0.0 Abs Immat Gran (auto) 0.06 H 0.07 H Absolute Neuts (auto) 8.7 H 8.4 H Absolute Nucleated RBC 0.000 0.000 Band Neutrophils % Not Reportable Not Reportable Nucleated RBC % 0.0 0.0 Platelet Estimate Adequate Slightly decreased Anisocytosis 1+ Macrocytosis 1+ 1+ Schistocytes None seen None seen ESR 17 Sodium 135 L Potassium 3.5 Chloride 110 H Carbon Dioxide 21 L Anion Gap 4 BUN 8 Creatinine 0.45 L Estim Creat Clear Calc 110 Estimated GFR > 60 Glucose 114 H Calcium 8.2 L Magnesium 1.8 Total Bilirubin 0.2 AST 45 H ALT 38 H Alkaline Phosphatase 74 C-Reactive Protein < 0.5 Total Protein 5.0 L Albumin 2.5 L
[2025-04-30] MEDS: NICOTINE (*PBKC) 21 MG PATCH 1 PATCH TRANSDERM (09:31)
[2025-04-30] MEDS: THIAMINE HCL 100 MG TABLET FEED TUBE (09:31)
[2025-04-30] MEDS: MAGNESIUM OXIDE 400 MG TABLET PO (09:31)
[2025-04-30] MEDS: FERROUS SULFATE 325 MG TABLET PO (09:31)
[2025-04-30] MEDS: FOLIC ACID 1 MG TABLET FEED TUBE (09:31)
[2025-04-30] MEDS: MEGESTROL ACETATE (*CHEMO) 20 MG TABLET FEED TUBE (09:31)
[2025-04-30] MEDS: VITAMIN B COMPLEX CAPSULE 1 CAP FEED TUBE (09:31)
[2025-04-30] MEDS: POTASSIUM CHLORIDE 20 MEQ PACKET (FOR LIQUID) 10 MEQ FEED TUBE (09:32)
[2025-04-30] MEDS: KETOROLAC 15 MG/ML VIAL (*BKC) IV PUSH (09:33)
[2025-04-30 14:08] LABS: Calprotectin, Fecal 37 ug/g (0-120)
--- NOTE | 2025-04-30 14:21 | P.DS_ITS ---
DS: Admitting Diagnosis Discharge Date 04/30/2025 Admitting Diagnosis Nausea vomiting diarrhea DS: Discharge Diagnosis Discharge Diagnosis (1) Eating disorder, unspecified: Code(s): F50.9 - Eating disorder, unspecified Status: Acute (2) Depression with anxiety: Code(s): F41.8 - Other specified anxiety disorders Status: Acute (3) Prolonged Q-T interval on ECG: Code(s): R94.31 - Abnormal electrocardiogram [ECG] [EKG] Status: Acute (4) History of torsades de pointes: Code(s): Z86.79 - Personal history of other diseases of the circulatory system Status: Acute (5) Adrenal insufficiency: Code(s): E27.40 - Unspecified adrenocortical insufficiency Status: Acute (6) Severe protein-calorie malnutrition: Code(s): E43 - Unspecified severe protein-calorie malnutrition Status: Acute (7) Nausea & vomiting: Code(s): R11.2 - Nausea with vomiting, unspecified Status: Acute (8) Colitis: Code(s): K52.9 - Noninfective gastroenteritis and colitis, unspecified Status: Acute (9) Hypomagnesemia: Code(s): E83.42 - Hypomagnesemia Status: Acute (10) Pain in both lower extremities: Code(s): M79.604 - Pain in right leg; M79.605 - Pain in left leg Status: Acute DS: Summary Hospital Course Hospital Course: 35-year-old female who presents with 1 week history of a nausea vomiting diarrhea and decreased p.o. intake. She was admitted recently for similar symptoms. She did improve at the time of discharge however over the past few days she started having worsening symptoms. She reports abdominal pain. She had history of cardiac arrest with ventricular fibrillation in October of 2024. In the ED her vitals were stable. Laboratory evaluation showed WBC of 4.7 hemoglobin of 15.1 indicating hemoco ncentration platelet count of 214. Chemistry panel showed sodium 135 potassium 3.5 chloride 100 bicarbonate 20 BUN 10 creatinine 0.6 blood glucose of 116. Lactate was elevated at 2.6. LFT showed total bilirubin of 1.2 AST of 94 ALT 61 alkaline phosphatase 153. Lipase was normal at 114. TSH 1.13 normal. Magnesium 1.5. Urinalysis was negative for UTI. Repeat lactate 1.2 after IV fluid was normal. Patient was negative for influenza RSV and COVID. CT scan of abdomen pelvis showed mild colitis probably infectious in nature. Mild cystitis noted as well. Patient has been started on Rocephin and Flagyl. She is admitted in the setting for further treatment Colitis Stool studies negative to date. C diff negative. Continue Rocephin and metronidazole. GI consultation and suggest likely diagnosis to be irritable bowel syndrome with diarrhea. Started on rifaximin. Stopped IV antibiotics. Nausea vomiting diarrhea on scopolamine patch. Compazine p.r.n. History of ESBL E coli UTI Hypomagnesemia replace and monitor Adrenal insufficiency has was diagnosed with low cortisol level in October 2024. Patient did not follow-up with Endocrinology.. Recheck cortisol this admission very low at 0.9 . Cosyntropin test performed with mild increase in cortisol level. Started on hydrocortisone which was switched to prednisone at discharge 2.5 mg twice a day. She should follow up with transportation modeler as outpatient basis for further workup History of cardiac arrest secondary to VFib on October 2024 follows EP at [facility]. Possible congenital QT prolongation syndrome. On nadolol. Also on LifeVest History of left ventricular thrombus on Xarelto Eating disorder Status post PEG tube placement 11/07/2023 Chronic LFT elevation marijuana use Tobacco abuse Anxiety depression Alcohol use disorder DVT prophylaxis on Xarelto Code status full code Time Spent with Patient Time attestation: Total time spent providing and/or coordinating discharge services: 35 minutes Exam Narrative: GENERAL: Chronically ill-appearing underweight, and in no acute distress. HEAD: Normocephalic, atraumatic. EYES: PERRL and EOMI. ENT: Mucous membranes moist. CHEST: Clear to auscultation. No respiratory distress. HEART: Regular rate and rhythm Normal peripheral pulses. ABDOMEN: Soft, mild tenderness epigastric area, nondistended. G-tube in situ EXTREMITIES: Normal range of motion. No edema. SKIN: Warm, dry, no rash. NEURO: Alert and oriented x3. PSYCH: Normal mood and affect. DS: Data Data Completed and Pending Labs on day of discharge: Labs from last 24 hours 04/30/25 04/27/25 05:44 02:10 WBC 10.9 H RBC 3.18 L Hgb 11.4 L Hct 34.1 L MCV 107.2 H MCH 35.8 H MCHC 33.4 RDW 12.8 Plt Count 147 L MPV 10.8 H Immature Gran % (Auto) 0.6 H Neut % (Auto) 76.7 H Lymph % (Auto) 18.7 Gonzales % (Auto) 3.9 Eos % (Auto) 0.0 Baso % (Auto) 0.1 L Lymph # (Auto) 2.04 Gonzales # (Auto) 0.4 Eos # (Auto) 0.0 Baso # (Auto) 0.0 Abs Immat Gran (auto) 0.07 H Absolute Neuts (auto) 8.4 H Absolute Nucleated RBC 0.000 Band Neutrophils % Not Reportable Nucleated RBC % 0.0 Platelet Estimate Slightly decreased Macrocytosis 1+ Schistocytes None seen Sodium 135 L Potassium 3.5 Chloride 110 H Carbon Dioxide 21 L Anion Gap 4 BUN 8 Creatinine 0.45 L Estim Creat Clear Calc 110 Estimated GFR > 60 Glucose 114 H Calcium 8.2 L Magnesium 1.8 Total Bilirubin 0.2 AST 45 H ALT 38 H Alkaline Phosphatase 74 Total Protein 5.0 L Albumin 2.5 L Stool Calprotectin 37 Preliminary micro results at discharge 04/26/25 11:13 Blood Culture - Preliminary Blood 04/26/25 11:29 Blood Culture - Preliminary Blood 04/27/25 02:10 Stool for WBCs - Preliminary Stool Imaging Radiologist's impression: ITS Impressions Abdomen/Pelvis CT 04/26/25 09:54 IMPRESSION: 1. Mild colitis probably infectious in nature. 2. Mild cystitis. Discharge Plan Discharge Attending physician on discharge: Cayden Maldonado Discharging Clinician: Cayden Maldonado Anticipated Discharge Date/Time: 04/30/25 14:23 Patient Disposition: Home Activity: as tolerated Diet: regular Patient Instructions: Antibiotic Form, Rivaroxaban (By mouth) Patient Language: Burundian Stand Alone Forms: General Discharge Information Follow-up/Referrals: Mo Mitchell MD [Primary Care Provider, Hospitalist] - 1 Week Jasmyn Casper MD [Physician, Endocrinology] - 2 Weeks Alfredo Allred MD [Physician, Gastroenterology] - 2 Weeks Discharge Medications: New loperamide 2 mg Capsule 2 mg PO PRN PRN (Reason: Diarrhea) Qty: 30 0RF rifaximin 550 mg tablet 550 mg PO TID Qty: 40 0RF prednisone 2.5 mg tablet 2.5 mg PO BID Qty: 60 0RF Continued buspirone 15 mg tablet 15 mg feeding tube TID Patient Comments: 10 am then 8 pm normally cyanocobalamin (vitamin B-12) 1,000 mcg tablet 1,000 mcg feeding tube MONTHLY nicotine 14 mg/24 hr patch 24 hour 1 patch transdermal Q24H Xarelto 20 mg Tablet 20 mg PO DAILY@1700 Qty: 30 0RF ergocalciferol (vitamin D2) 1,250 mcg (50,000 unit) capsule 1,250 mcg feeding tube WEEKLY Patient Comments: famotidine 20 mg tablet 20 mg PO HS methocarbamol 750 mg tablet 750 mg feeding tube .q4hr nadolol 20 mg tablet 20 mg feeding tube DAILY magnesium oxide 420 mg tablet 420 mg PO DAILY Antibiotic (yawbh-yvtol-xkuqv) 3.5mg-400 unit- 5,000 unit/gram ointment 1 applic topical DAILY PRN (Reason: with PEG tube dressing changes as needed) thiamine HCl (vitamin B1) 100 mg tablet 100 mg feeding tube DAILY folic acid 1 mg tablet 1 mg feeding tube DAILY ferrous sulfate 325 mg (65 mg iron) tablet,delayed release (DR/EC) 325 mg PO BID Rx Instructions: patient administers via feeding tube megestrol 20 mg tablet 20 mg feeding tube BID Patient Comments: 8 am and 8 pm vitamin B complex [Vitamins B Complex] Capsule 1 cap feeding tube QAM Jevity 1.5 Chriss 0.06 gram-1.5 kcal/mL liquid See Rx Instructions .ROUTE .COMPLEX Rx Instructions: 75ml one to two times a day. potassium chloride 10 mEq capsule, extended release 10 meq feeding tube DAILY Qty: 60 0RF Discontinued magnesium oxide 400 mg (241.3 mg magnesium) tablet 420 mg feeding tube DAILY amoxicillin-pot clavulanate 875-125 mg tablet 1 tablet PO Q12H Qty: 12 0RF Other Ambulatory Orders: Complete Blood Count with Diff (Routine) Timeframe: 1 Week Location: Determined by Patient Ordered By: Cayden Maldonado Comprehensive Metabolic Panel (Routine) Timeframe: 1 Week Location: Determined by Patient Ordered By: Cayden Maldonado Date of admission: 04/26/25 11:34 Primary Care Provider: Mo Mitchell Admitting Provider: Nnanna,Onyema Attending physician on admission: Alesia Washington Condition: Improved
[2025-04-30 16:53] LABS: Fats, Neutral Normal
[2025-04-30 16:54] LABS: Fats, Total Normal
[2025-05-01 15:30] LABS: Pancreatic Elastase, Fecal 773
[2025-05-01 18:07] LABS: Lactoferrin, Fecal, Quant. <1.00 ug/mL(g) (0.00-7.24)
== END 2025-04-30 15:12 | disposition home or self-care (01) ==
LOC: ANHED 11:36 → ANH3MED 15:15 → ANH3MEDSUR 05-01 07:17
PROVIDERS: Admitting Provider Internal Medicine; Emergency Provider Emergency Medicine; PCP Internal Medicine; Visit Provider Internal Medicine
DX: K52.9 Noninfective gastroenteritis and colitis, unspecified (principal); F50.9 Eating disorder, unspecified; E43 Unspecified severe protein-calorie malnutrition; E83.42 Hypomagnesemia; M79.604 Pain in right leg; M79.605 Pain in left leg; R94.31 Abnormal electrocardiogram [ECG] [EKG]; E27.40 Unspecified adrenocortical insufficiency; F10.90 Alcohol use, unspecified, uncomplicated; Z79.01 Long term (current) use of anticoagulants; I34.1 Nonrheumatic mitral (valve) prolapse; Z86.74 Personal history of sudden cardiac arrest; F41.8 Other specified anxiety disorders; F12.10 Cannabis abuse, uncomplicated; Z82.49 Family history of ischemic heart disease and other diseases of the circulatory system; F17.210 Nicotine dependence, cigarettes, uncomplicated; Z86.79 Personal history of other diseases of the circulatory system; Z20.822 Contact with and (suspected) exposure to COVID-19
CPT/HCPCS: 36415; 74177; 80053; 81001; 81025; 82533; 82653; 82705; 83605; 83631; 83690; 83735; 83993; 84443; 85025; 85652; 86140; 87040; 87045; 87046; 87338; 87427; 87493; 87637; 93005; 96365; 96366; 96367; 96374; 96375; 99285; A9270; G0378; G0379; J0696; J0780; J0834; J1100; J1171; J1720; J1836; J1885; J2470; J3475; J7030; J7120; Q9967

== ENCOUNTER 2025-07-19 09:08 | Emergency (ER) | payer OTHER, SELFPAY ==
--- OUTSIDE RECORDS SUMMARY | 2024-06-27 13:20 | XMS_ITS ---
Author Organization [facility] Address [address] [place] [address] Phone [phone] Care Team Providers Care Substation Design Draftsperson Name Role Phone Mo Mitchell Primary Care Provider [phone] REASON FOR VISIT 3 month f/u Social History Sex Observation Social History Observation Description Sex Observation Female Sexual Orientation Social History Observation Description Sexual Orientation Straight or heterose xual Gender Identity Social History Observation Description Gender Identity Female Encounters Date Time Type Facility Location Provider Diagnosis 06/27/2024 01:20 PM Office Visit [address] [place] [address] Mo Mitchell Plan Of Treatment No Information Medical (General) History Surgical History Surgery Date(Month/Year) peg tube 10/2023 child 2017 Hospitalization History Reason Date(Month/Year) [place] 1 night and 4 nights 02/2025 [facility] Cardiac arrest 10/2024 [facility]. infection 07/2024 [facility] 02/04/17 Progress Notes * Ester LEÓNDOB:1990 (35 yo F)Acc No.[id number]:06/27/2024 UNLOCKED PROGRESS NOTE Progress Notes Patient: Ester JEONG Provider: Ramin Mitchell :1990 A ge:34 Y S ex:Female Date:06/27/2024 Address:[address] [place] [address], [id number] Subjective: * Chief Complaints: * 1 . 3 month f/u. * Screening: * * Medical History: Objective: * Vitals: Assessment: Plan: * Treatment: * * Electronic signature of Tavia Mitchell , [id number] on 07/19/2025 at 09:11 AM FRAME EXPANDER Sign off status: Pending * Provider: Ramin Mitchell Date: 08/28/2023 Generated for Edinson miller/Gabriella/Carleen on: 09/19/2024 09:11 AM FRAME EXPANDER
--- OUTSIDE RECORDS SUMMARY | 2024-07-31 13:40 | XMS_ITS ---
Author Organization [facility] Address [address] [place] [address] Phone [phone] Care Team Providers Care Adult Caregiver Name Role Phone Mo Mitchell Primary Care Provider [phone] REASON FOR VISIT 3 month f/u Social History Sex Observation Social History Observation Description Sex Observation Female Sexual Orientation Social History Observation Description Sexual Orientation Straight or heterose xual Gender Identity Social History Observation Description Gender Identity Female Encounters Date Time Type Facility Location Provider Diagnosis 07/31/2024 01:40 PM Office Visit [address] [place] [address] Mo Mitchell Plan Of Treatment No Information Medical (General) History Surgical History Surgery Date(Month/Year) peg tube 10/2023 child 2017 Hospitalization History Reason Date(Month/Year) [place] 1 night and 4 nights 02/2025 [facility] Cardiac arrest 10/2024 [facility]. infection 07/2024 [facility] 02/04/17 Progress Notes * Ester LEÓNDOB:1990 (35 yo F)Acc No.[id number]:07/31/2024 UNLOCKED PROGRESS NOTE Progress Notes Patient: Ester JEOGN Provider: Ramin Mitchell :1990 A ge:34 Y S ex:Female Date:07/31/2024 Address:[address] [place] [address], [id number] Subjective: * Chief Complaints: * 1 . 3 month f/u. * Screening: * * Medical History: Objective: * Vitals: Assessment: Plan: * Treatment: * * Electronic signature of Tavia Mitchell , [id number] on 07/19/2025 at 09:11 AM COMPUTER TYPESETTER KEYLINER Sign off status: Pending * Provider: Ramin Mitchell Date: 0 07/31/2024 Generated for Edinson miller/Gabriella/Carleen on: 09/19/2024 09:11 AM COMPUTER TYPESETTER KEYLINER
[2025-07-19] VITALS (21 sets, daily range): BP systolic 107–119; BP diastolic 70–82; PULSE 76–92; RESP 13–26; TEMP 36.8; O2SAT 92–100
--- NOTE | ~2025-07-19 | XR_ITS ---
EXAMINATION: XR chest 2V DATE: 07/19/2025 12:30 INDICATION: Weakness TECHNIQUE: PA and lateral views of the chest were obtained. COMPARISON: Chest radiograph dated 04/16/2025 FINDINGS: The lungs are clear with no focal airspace opacities, pulmonary edema, pleural effusion or pneumothorax. The cardiomediastinal silhouette is normal. Percutaneous gastrostomy tube bulb projects over the body the stomach in the anterior left upper quadrant. IMPRESSION: 1. No acute cardiopulmonary disease. Reviewed, dictated and finalized at location A. VERY [facility]ECT
--- NOTE | 2025-07-19 09:09 | ECG_ITS ---
Test Date: 2025-07-19 09:13:56 Measurements Intervals [place] Rate: 107 P: 61 NC: 109 QRS: 66 QRSD: 90 T: -74 QT: 351 QTc: 469 Interpretive Statements SINUS TACHYCARDIA WITH SHORT NC INTERVAL ST-T WAVE ABNORMALITY IN ANTEROLAT/INF LEADS- CONSIDER ISCHEMIA BASELINE ARTIFACT- I, II, III, AVR, AVL, AVF, V1-V6 ABNORMAL ECG Compared to ECG 04/26/2025 16:39:50 HEART RATE HAS INCREASED POSSIBLE ISCHEMIA NOW PRESENT Electronically Signed On 07-19-2025 09:22:29 GLASS CURVATURE GAUGER by Jayme Mcneal D.O.
--- OUTSIDE RECORDS SUMMARY | 2025-07-19 09:11 | XMS_ITS | Clinical Summary ---
Author Organization [facility] dipika [facility] Address [address] [place] [address] [place] [address] Care Team Providers Care Bill Collector Name Role Phone Unavailable Primary Care Provider [...]
--- OUTSIDE RECORDS SUMMARY | 2025-07-19 09:11 | XMS_ITS | Encounter Summary ---
Author Organization [facility] Facility Care Team Providers Care Financial Legal Assistant Name Role Phone Christian Merritt MD Primary Care Provider [phone] Mo Mitchell MD Primary Care Provider [phone] Neeta Ott RN Unavailable [phone] Encounter Details Date Type Department Care Team (Latest Contact Info) Description 12/06/2016 Orders Only [facility] CLINCONV Provider, MD Serge [address] [place] [address] Social History Tobacco Use Types Packs/Day Years Used Date Smoking Tobacco: Never Assessed Comments Unknown Sex and Gender Information Value Date Recorded Sex Assigned at Not on file 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 difficile suspected 11/09/2024 11/09/202411/09 12:40 PM CDT documented as of this encounter Care Teams Financial Legal Assistant Relationship Specialty Start Date End Date Christian Merritt MD PCP - General Emergency Medicine 06/10/22 10/30/24 Mo Mitchell MD [address] [place] [address] PCP - General Internal Medicine 10/31/24 Neeta Ott, RN [address] [address] [facility] Outpatient Drilling Assistant 11/29/24 12/06/24 documented as of this encounter
--- OUTSIDE RECORDS SUMMARY | 2025-07-19 09:11 | XMS_ITS | Clinical Summary ---
Author Organization [facility] Address [address] [place] [address] Care Team Providers Care Acute Care Nurse Practitioner Name Role Phone Mo Mitchell MD Primary Care Provider [phone] Allergies Active Allergy Reactions Criticality Noted Date [...] for diarrhea 100 mL 5 Active multivit omautebh-mfdr-C A-calcium (THERA-M) 9 mg iron-400 mcg tabletIndicatio [...] daily until blood thinner is received from ocean lifeguard specialist office Indications: treatment to prevent a heart [...] Encounters Date Type Department Care Team Description 07/12/2025 Telephone [facility] Cardiothoracic Surgery [address] [facility] Advanced Medicine 8th Floor [address] Room [address] [place] [phone] Bo Fried MD 05/20/2025 Telephone [facility] Cardiothoracic Surgery [address] [facility] Advanced Medicine 8th Floor [address] Room [address] [address] Bo Fried MD from Last 3 Months Immunizations Immunization Administration [...] materials from doctor or pharmacy Sometimes 01/18/2025 [facility] Utilities Answer Date Recorded In the past 12 months has e [employer], gas, oil, or water [employer] threatened to shut off services in your [...] often do you attend chur ch or cheondoism services? Never 11/29/2024 Do you belong to any clubs o r organizations such as rastafari groups, unions, fraternal or athletic groups, or [...] were you homeless or living in a half-way (including now)? No 11/29/2024 Personal Safety Answer Date Recorded Have you ever been in or are you currently in a harmful physical or emotional relationship or is someone making you feel afraid or unsafe? 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 Gender Identity Not on file Sexual [...] Procedure Name Priority Date/Time Associated Diagnosis Comments HEPATITIS PANEL, ACUTE Routine 11/03/2024 2:31 PM CDT THINPREP TIS PAP REFLEX HPV MRNA E6/E7, CHLAMYDIA/N.GONORRH OEAE Routine 09/14/2016 12:56 PM CIRCULAR CLERK from Last 3 Months or Most Recently Relevant to Health Maintenance Results * Hepatitis panel, acute Blood (11/03/2024 2:31 PM CDT) Hep A IgM Nonreactive Nonreactive Hep B core IgM Nonreactive Nonreactive [facility] Hep C Ab Nonreactive Nonreactive [facility] Comment:Antibodies to HCV no t detected. Does NOT exclude the possibility of recent exposure to HCV. Current interpretive data was last revised on 22 HepBsAg Nonreactive Nonreactive [facility] Blood 11/03/2024 2:31 PM CDT 11/03/2024 2:38 PM CDT us Mar George MD LAB MICROBIOLOGY - GENERAL ORDERABLES Final Result [facility] [place] [address] * THINPREP TIS PAP REFLEX HPV mRNA E6/E7, CHLAMYDIA/N.GONORRHOEAE (09/14/2016 12:56 PM CIRCULAR CLERK) CLINICAL INFORMATION [facility] HISTORICAL RESULTS Comment: LMP: [facility] HISTORICAL RESULTS PREV. PAP: [facility] HISTORICAL RESULTS Comment:2011 PREV. BX: [facility] HISTORICAL RESULTS Comment:UNKNOWN SOURCE: [facility] HISTORICAL RESULTS Comment:Cervix, Endocervix STATEMENT OF ADEQUACY: [facility] HISTORICAL RESULTS Comment:Satisfactory for savana luation. Endocervical/transformation zone component present. INTERPRETATION/RES ULT: [facility] HISTORICAL RESULTS Comment:Negative for intraep ithelial lesion or malignancy. COMMENT: [facility] HISTORICAL RESULTS Comment:This Pap test has be en evaluated with computer assisted technology. MULTINEEDLE SHIRRER: [facility] HISTORICAL RESULTS Comment:YQ, CT(ASCP) CT scre ening location: [facility] [place] [address] [place] [address] C. trachomatis RNA NOT DETECTED NOT DETECTED [facility] HISTORICAL RESULTS N. gonorrhoeae RNA NOT DETECTED NOT DETECTED [facility] HISTORICAL RESULTS COMMENT [facility] HISTORICAL RESULTS Comment: This test was performed using the APTIMA COMBO2 Assay ([employer] The analytical performance characteristics of this assay, when used to test SurePath specimens have been determined by [employer]. 09/14/2016 12:5 6 PM CIRCULAR CLERK 09/20/2016 11:25 AM CIRCULAR CLERK Narrative [facility] HISTORICAL RESULTS - 09/20/2016 11:07 AM CIRCULAR CLERK 0 PERFORMING LAB: [place] [place] [address] [facility] [id number] Pelon Hand MD Irene WOOD LAB PATHOLOGY ORDERABLE S Final Result [facility] HISTORICAL RESULTS from Last 3 Months or Most Recently Relevant to Health Maintenance Insurance Advance Directives For more information, please contact: [phone] * Full Code (Latest Code Status on File) Date Activated Date Inactivated Comments 10/31/2024 6:43 AM 11/28/2024 7:55 PM * Full Code Date Activated Date Inactivated Comments 06/10/2022 11:46 PM 06/12/2022 5:21 PM Care Teams Acute Care Nurse Practitioner Relationship Specialty Start Date End Date Mo Mitchell MD [address] [place] [address] PCP - General Internal Medicine 10/31/24
--- OUTSIDE RECORDS SUMMARY | 2025-07-19 09:11 | XMS_ITS | Encounter Summary ---
Author Organization [facility] Facility Care Team Providers Care Content Strategist Name Role Phone Christian Merritt MD Primary Care Provider [phone] Mo Mitchell MD Primary Care Provider [phone] Neeta Ott RN Unavailable [phone] Encounter Details Date Type Department Care Team (Latest Contact Info) Description 12/09/2016 Orders Only [facility] CLINCONV Provider, MD Serge [address] [place] [address] Social History Tobacco Use Types Packs/Day Years Used Date Smoking Tobacco: Never Assessed Comments Unknown Sex and Gender Information Value Date Recorded Sex Assigned at Not on file 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
--- OUTSIDE RECORDS SUMMARY | 2025-07-19 09:11 | XMS_ITS | Patient Health Record ---
Author Organization [facility] Address [address] [place] [address] Phone [phone] Care Team Providers Care Cafe Lead Name Role Phone Mo Mitchell Primary Care Provider [phone] Ileana Duncan Unavailable [phone] Allergies Allergen (clinical drug ingredient) Drug/Non Drug Allergy documented on EMR Reaction Allergy Type Onset Date Status Latex Latex Unknown Allergy Active Results Component Value Reference Range Notes 12 Panel Urine Drug Screen Order date: 12/05/2024 Reviewed date:12/05/2024 02:23:57 PM Interpretation: Performing Lab: Notes/Report: THC POS JONI neg MOP (OPI) neg AMP neg MET neg BAR neg BZO neg MDMA neg MTD neg OXY POS PCP neg BUP neg CBC With Differential/Platel et* Order date: 03/07/2025 Reviewed date:03/18/2025 08:23:50 AM Interpretation: Performing Lab: Notes/Report: Magnesium, Serum* Order date: 03/07/2025 Reviewed date:03/26/2025 10:04:50 AM Interpretation: Performing Lab: Notes/Report: CMP 14 Comprehensive Metabol ic Panel* Order date: 03/07/2025 Reviewed date:03/18/2025 08:24:07 AM Interpretation: Performing Lab: Notes/Report: Reason For Referral No Information Medications Medication SIG (Take, Route, Frequency, Duration) Notes Start Date End Date Diagnosis (ICD Code) Status Ergocalciferol 1.25 MG (34727 UT) Capsule 1 capsule Orally Active Nadolol 20 MG Tablet 1 tablet Orally Once a day; Duration: 30 days Prolonged QT interval (ICD_10 - I45.81) Active B-Complex-C - Tablet as directed Orally Active Folic Acid 1 MG Tablet 1 tablet Orally Once a day; Duration: 30 days Protein-calorie malnutrition, unspecified severity (ICD_10 - E46) Active Famotidine 20 MG Tablet 1 tablet Orally twice a day; Duration: 30 days Active Xarelto 20 MG Tablet 1 tablet with food Orally Once a day Active Ferrous Sulfate 325 (65 Fe) MG Tablet Delayed Release 1 tablet Orally daily; Duration: 30 days Active Magnesium Oxide 420 MG Tablet 1 tablet with food Orally Once a day; Duration: 30 days Active Potassium Chloride ER 10 MEQ Tablet Extended Release 1 tablet with food Orally daily; Duration: 30 days 03/07/2025 Hypokalemia (ICD_10 - E87.6) Active Methocarbamol 750 MG Tablet 1 tablet Orally 3 times a day; Duration: 30 days As needed muscle pain Active busPIRone HCl 15 MG Tablet 1 tablet Orally Twice a day; Duration: 30 days Active Acetaminophen 500 MG Tablet two tablets as needed for pain (maximum of 6 tablets in 24 hours) Orally every 6 hrs 10/01/2024 Peripheral neuropathy (ICD_10 - G62.9) Active Multivitamin - Tablet 1 tablet Orally Once a day Active Simethicone 80 MG Tablet Chewable 1 tablet after meals and at bedtime as needed Orally Four times a day Active Netupitant-Palonose yoav 300-0.5 MG Capsule 1 capsule Orally daiy; Duration: 14 days As needed nausea 03/07/2025 Nausea (ICD_10 - R11.0) Active Megestrol Acetate 20 MG Tablet 1 tablet Orally Twice a day; Duration: 30 days Eating disorder, unspecified (ICD_10 - F50.9) Active Naloxone HCl 4 MG/10ML Solution as directed Injection Active Loperamide HCl 1 MG/7.5ML Solution 15 mL as needed Orally Four times a day Active Nicotine 14 MG/24HR Patch 24 Hour 1 patch to skin Transdermal Once a day Not-Taking Cyanocobalamin 1000 MCG Capsule 1 capsule Orally daily; Duration: 90 days Active Social History Tobacco Use: Social History Observation Description Date Details (start date - stop date) Current Smoker 03/10/2007 - NA Sex Observation Social History Observation Description Sex Observation Female Sexual Orientation Social History Observation Description Sexual Orientation Straight or heterose xual Gender Identity Social History Observation Description Gender Identity Female SDOH Assessments Date Tool Assessment Assessment LOINC Value Assessment Notes Goals Interventions 03/07/20 25 EVIN ([facility]: 37056-1) Total Score: 4 Date Completed/Upda margy: 03/07/20 25 What is your current housing situation? 68141-4 I have housing (OJ88413-2) Are you worried about losing your housing? 65960-2 No (LA32-8) What is the highest level of school that you have finished? 65380-0 High school diploma or GED (TT56356-0) What is your current work situation? 53494-3 Otherwise unemployed but not seeking work (ex. student, retired, disabled, unpaid primary foster care worker) (PT84708-4) In the past year, have you o r any family members you live with been unable to get any of the following when it was really needed? Check all that apply 57271-9 I do not have problems meeting my needs Has lack of transportation k ept you from medical appointments, meetings, work or from getting things needed for daily living? 77284-8 No (LA32-8) How often do you see or talk to people that you care about and feel close to? (For example: talking to friends on the phone, visiting friends or family, going to protestant or club meetings) 03026-3 3 to 5 times a week (HB12019-2) How stressed are you? Stress is when someone feels tense, nervous, anxious, or can\t sleep at night because their mind is troubled 38692-4 Somewhat (TN40341-8) In the past year have you sp ent more than 2 nights in a row in a alf, intermediate, nursing home center, or juvenile correctional facility? 28961-6 No (LA32-8) Do you feel physically and emotionally safe where you currently live? 53363-1 Yes (LA33-6) In the past year, have you b een afraid of your partner or ex-partner? 34969-3 Unsure Are you a refugee? I choose not to answer this question What country are you from? [place] PRAPARE Score: 4 Social History Social Determinants Social Info Question Answer Notes PRAPARE Date Completed/Updated: 03/07/2025 What is your current housing situation? I have h ousing Are you worried about losing your housing? No What is the highest level of school that you have finished? High school diploma or GED What is your current work situation? Oth erwise unemployed but not seeking work (ex. student, retired, disabled, unpaid primary foster care worker) In the past year, have you o [...] phone, visiting friends or family, going to protestant or club meetings) 3 to 5 times a week How stressed are you? Stress is when someone feels tense, nervous, anxious, or can\t sleep at night because their mind is troubled Somewhat In the past year have you sp ent more than 2 nights in a row in a alf, intermediate, nursing home center, or juvenile correctional facility? No Are you a refugee? I choose not to answer this q uestion What country are you from? [place] Do you feel physically and e motionally safe where you currently live? Yes In the past year, have you b een afraid of your partner or ex-partner? Unsure PRAPARE Score: 4 Miscellaneous Social Info Question Answer Notes Method of learning: Preferred method of learning: Disc ussion Primary Social History Social Info Question Answer Notes Living Arrangement Living Arrangement: Independent Ana ing Is this a supportive environment? Yes Employment Status Employment Status: Unemployed Illicit Substance Usage Illicit Substance Usage: Yes Substance Used: Cannabis Frequency Cannabis is used: Every other day Interested in quitting: No Alcohol Use Alcohol Use Frequency: Monthly or less Tobacco Use: Social Info Question Answer Notes Tobacco Control (Standard) Additional Findings: Tobacco non-user Never chewed tobacco,Does not use moist powdered tobacco,Never used moist powdered tobacco When did you start smoking? 03/10/2007 How often do you smoke cigarettes? Every day How many cigarettes a day do you smoke? 6-10 How soon after you wake up do you smoke your first cigarette? Within 5 minutes Are you interested in quitting? Not ready to quit Tobacco use: Current smoker Additional Findings: Tobacco user Light cigarett e smoker (1-9 cigs/day) Problems Problem Type SNOMED Code ICD Code Dates Problem Status W/U Status Risk Notes Problem Hypomagnesemia (224427312) Hypomagnesemia (E83.42) Added On:03/07 Active confirmed Problem Tobacco user (923120131) Nicotine dependence, unspecified, uncomplicated (F17.200) Added On:11/13 Active confirmed Problem Eating disorder (31214802) Eating disorder, unspecified (F50.9) Added On:02/08 Active confirmed Problem Prolonged QT interval (953577673) Prolonged QT interval (I45.81) Added On:12/05 Active confirmed Problem Peripheral neuropathy (468474317) Peripheral neuropathy (G62.9) Added On:11/29 Active confirmed Problem Chronic pain (83076080) Chronic pain (G89.29) Added On:12/05 Active confirmed Problem Unsteady gait (61368202) Unsteady gait (R26.81) Added On:03/20 Active confirmed Problem Deficiency of macronutrients (disorder) (355687737) Protein-calorie malnutrition, unspecified severity (E46) Added On:11/13 Active confirmed Problem Alcohol related disorder (F10.99) Added On:12/05 Active confirmed Vital Signs Vital Sign Value Notes Appt Date Heart Rate 99 /min 03/07/2025 Respiratory Rate 16 /min 03/07/2025 Blood pressure diastolic 80 mm Hg Oximetry 98 % 03/07/2025 Height 61 in 03/07/2025 Blood pressure systolic 110 mm Hg 02/22 Weight 106.4 lbs 03/07/2025 BMI 20.1 kg/m2 03/07/2025 Encounters Date Time Type Facility Location Provider Diagnosis 10/02/19 02:40 PM Office Visit, Est Pt., Level 3 (77505) [address] [place] [address] Mo Mitchell Protein-calorie malnutrition, unspecified severity E46 ; Peripheral neuropathy G62.9 ; Eating disorder, unspecified F50.9 and Nicotine dependence, unspecified, uncomplicated F17.200 12/06/19 25 01:40 PM Office Visit, Est Pt., Level 4 (91396) [address] [place] [address] Mo Mitchell Torsades de pointes I47.21 ; Prolonged QT interval I45.81 ; Chronic pain G89.29 ; Alcohol related disorder F10.99 ; Peripheral neuropathy G62.9 ; Protein-calorie malnutrition, unspecified severity E46 ; Unsteady gait R26.81 and Opioid use F11.90 03/07/20 25 01:40 PM Office Visit, Est Pt., Level 4 (14983) [address] [place] [address] Mo Mitchell Hypokalemia E87.6 ; Hypomagnesemia E83.42 ; Prolonged QT interval I45.81 ; Protein-calorie malnutrition, unspecified severity E46 ; Peripheral neuropathy G62.9 ; Alcohol related disorder F10.99 ; Nausea R11.0 and Diarrhea R19.7 03/07/20 25 01:40 PM Office Visit [address] [place] [address] Ileana Duncan 11/24/19 01:07 PM Telephone Encounter [facility] [place] [address] Mo Mitchell 12/04/19 11:54 AM Telephone Encounter [facility] [place] [address] Mo Mitchell 12/04/19 03:48 PM Telephone Encounter [facility] [place] [address] Mo Mitchell 12/06/19 02:25 PM Telephone Encounter [address] [place] [address] Mo Mitchell 12/20/19 11:45 AM Telephone Encounter [address] [place] [address] Mo Mitchell 12/29/19 02:01 PM Telephone Encounter [facility] [address] Mo Mitchell 01/03/20 02:34 PM Telephone Encounter [facility] [place] [address] Mo Mitchell Hypokalemia E87.6 ; Alcohol related disorder F10.99 and Fatigue R53.83 01/09/20 11:16 AM Telephone Encounter [facility] [place] [address] Mo Mitchell 01/11/20 01:06 PM Telephone Encounter [facility] [place] [address] Mo Mitchell 01/17/20 03:34 PM Telephone Encounter [facility] [place] [address] Mo Mitchell 01/19/20 12:59 PM Telephone Encounter [facility] [place] [address] Mo Mitchell 02/02/20 01:51 PM Telephone Encounter [facility] [place] [address] Mo Mitchell 02/14/20 08:58 AM Telephone Encounter [facility] [place] [address] Mo Mitchell 02/23/20 11:16 AM Telephone Encounter [facility] [address] [place] [address] Mo Mitchell 07/27/19 03:50 PM Web Encounter [address] [place] [address] Mo Mitchell 07/30/19 05:14 PM Web Encounter [address] [place] [address] Mo Mitchell 09/26/19 04:23 PM Web Encounter [address] [place] [address] Mo Mitchell 10/16/19 25 12:23 PM Web Encounter [address] [address] Mo Mitchell Eating disorder, unspecified F50.9 and Peripheral neuropathy G62.9 01/24/20 25 07:47 AM Web Encounter [address] [place] [address] Mo Mitchell 02/29/20 25 11:02 AM Web Encounter [address] [address] Mo Mitchell Chronic pain G89.29 03/10/20 25 09:26 AM Web Encounter [address] [address] Mo Mitchell 03/14/20 25 06:53 PM Web Encounter [address] [address] Mo Mitchell 03/20/20 25 01:29 PM Web Encounter [address] [address] Mo Mitchell Eating disorder, unspecified F50.9 03/22/20 25 07:38 AM Web Encounter [address] [address] Mo Mitchell 03/30/20 25 03:41 PM Web Encounter [address] [place] [address] Mo Mitchell Peripheral neuropathy G62.9 04/07/20 25 03:29 PM Web Encounter [address] [place] [address] Mo Mitchell Eating disorder, unspecified F50.9 and Hypokalemia E87.6 04/13/20 25 01:11 PM Web Encounter [address] [place] [address] Mo Mitchell Hypokalemia E87.6 and Protein-calorie malnutrition, unspecified severity E46 05/26/20 25 08:23 AM Web Encounter [address] [place] [address] Mo Mitchell Peripheral neuropathy G62.9 ; Hypokalemia E87.6 and Protein-calorie malnutrition, unspecified severity E46 06/07/20 25 03:59 PM Web Encounter [address] [place] [address] Mo Mitchell Assessments Encounter Date Diagnosis (ICD Code) Assessment Notes Treat ment Notes Section Notes 01/02/2025 Hypokalemia (ICD-10 - E87.6) 10/01/2024 Protein-calorie malnutrition, unspecified severity (ICD-10 - E46) 12/05/2024 Torsades de pointes (ICD-10 - I47.21) 01/02/2025 Alcohol related disorder (ICD-10 - F10.99) 02/28/2025 Chronic pain (ICD-10 - G89.29) 12/05/2024 Prolonged QT interva l (ICD-10 - I45.81) 03/07/2025 Hypokalemia (ICD-10 - E87.6) 03/07/2025 Hypomagnesemia (ICD-10 - E83.42) 10/15/2024 Eating disorder, unspecified (ICD-10 - F50.9) 03/20/2025 Eating disorder, unspecified (ICD-10 - F50.9) 04/07/2025 Eating disorder, unspecified (ICD-10 - F50.9) 04/13/2025 Hypokalemia (ICD-10 - E87.6) 03/30/2025 Peripheral neuropath y (ICD-10 - G62.9) 05/26/2025 Peripheral neuropath y (ICD-10 - G62.9) 10/01/2024 Peripheral neuropath y (ICD-10 - G62.9) 12/05/2024 Chronic pain (ICD-10 - G89.29) 10/15/2024 Peripheral neuropath y (ICD-10 - G62.9) 05/26/2025 Hypokalemia (ICD-10 - E87.6) 10/01/2024 Eating disorder, unspecified (ICD-10 - F50.9) 04/07/2025 Hypokalemia (ICD-10 - E87.6) 03/07/2025 Prolonged QT interva l (ICD-10 - I45.81) 01/02/2025 Fatigue (ICD-10 - R53.83) 04/13/2025 Protein-calorie malnutrition, unspecified severity (ICD-10 - E46) 05/26/2025 Protein-calorie malnutrition, unspecified severity (ICD-10 - E46) 12/05/2024 Alcohol related disorder (ICD-10 - F10.99) 03/07/2025 Protein-calorie malnutrition, unspecified severity (ICD-10 - E46) 10/01/2024 Nicotine dependence, unspecified, uncomplicated (ICD-10 - F17.200) 12/05/2024 Peripheral neuropath y (ICD-10 - G62.9) 03/07/2025 Peripheral neuropath y (ICD-10 - G62.9) 12/05/2024 Protein-calorie malnutrition, unspecified severity (ICD-10 - E46) 03/07/2025 Alcohol related disorder (ICD-10 - F10.99) 03/07/2025 Nausea (ICD-10 - R11.0) 12/05/2024 Unsteady gait (ICD-1 0 - R26.81) 03/07/2025 Diarrhea (ICD-10 - R19.7) 12/05/2024 Opioid use (ICD-10 - F11.90) 03/07/2025 Other Planning Rn met with Ester León to assist in working on building skills to help the consumer gain confidence in their recovery journey. The health technical writer practiced with Ester León implementing problem solving skills to help facilitate exploration of options and understanding of life triggers that impact substance use (explain options and life triggers). The health technical writer encouraged and engaged in critical thinking of how to use natural supports and coping skills to help manage symptoms in the moment. Planning Rn also worked on modeling and practicing with [...] Insured Coverage Start Date Coverage End Date [address] [phone] [id number] Ester León Self - patient is the insured 4 Medical (General) History Surgical History Surgery Date(Month/Year) peg tube 10/2023 child 2016 Hospitalization History Reason Date(Month/Year) [place] 1 night and 4 nights 02/2025 [facility] Cardiac arrest 10/2024 [facility]. infection 07/2024 [facility] 02/04/17
--- OUTSIDE RECORDS SUMMARY | 2025-07-19 09:11 | XMS_ITS | Encounter Summary ---
Author Organization [facility] Facility Care Team Providers Care Water Resource Project Manager Name Role Phone Christian Merritt MD Primary Care Provider [phone] Mo Mitchell MD Primary Care Provider [phone] Neeta Ott RN Unavailable [phone] Encounter Details Date Type Department Care Team (Latest Contact Info) Description 01/05/2017 Orders Only [facility]INCONV Provider, MD Serge [address] [place] [address] Social History Tobacco Use Types Packs/Day Years Used Date Smoking Tobacco: Never Assessed Comments Unknown Sex and Gender Information Value Date Recorded Sex Assigned at Not on file 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
--- NOTE | 2025-07-19 12:11 | ECG_ITS ---
Test Date: 2025-07-19 12:52:37 Measurements Intervals [place] Rate: 75 P: 63 VT: 114 QRS: 63 QRSD: 86 T: -22 QT: 396 QTc: 444 Interpretive Statements SINUS RHYTHM WITH SHORT VT INTERVAL ST-T WAVE ABNORMALITY IN ANT/INF LEADS- CONSIDER ISCHEMIA BASELINE ARTIFACT- I, III, AVR, AVL, AVF, V1-V2 ABNORMAL ECG Compared to ECG 07/19/2025 09:13:56 HEART RATE HAS DECREASED Electronically Signed On 07-19-2025 19:32:25 ACETYLENE TORCH OPERATOR by Jayme Mcneal D.O.
[2025-07-19 12:21] LABS: BEDSIDEPREGUCG Negative (Negative)
[2025-07-19 12:42] LABS: Add Urine Microscopic? YES; Appearance Urine Turbid (Clear); Glucose Urine UA Negative (Negative); Leukocyte Esterase Ur Trace LEU/UL (Negative); Need Manual Microscopic Reviewed; Nitrate Urine Negative (Negative); Specific Grav Ur 1.023 (1.001-1.035)
[2025-07-19 13:12] LABS: Hematocrit 44.0 % (37.0-47.0); Hemoglobin 15.4 g/dL (12.0-15.0); Immature Granulocyte Percent A 0.2 % (0-0.5); Lymphocytes Absolute Auto 1.34 K/mm3 (0.9-3.2); Mean Corpuscular HGB Conc 35.0 g/dl (32-36); Mean Corpuscular Hemoglobin 34.6 pg (26-34); Mean Corpuscular Volume 98.9 fl (80-100); Nucleated Red Blood Cells Absolute Auto 0.000 K/mm3 (0.0-0.012); Nucleated Red Blood Cells Perc 0.0 % (0.0-0.2); Platelet Count Result 146 k/mm3 (150-375); Red Blood Count 4.45 M/mm3 (4.2-5.4); White Blood Count 4.4 K/mm3 (4.5-10.0)
[2025-07-19 13:14] LABS: Influenza A QL RT-PCR Negative (Negative); Influenza B QL RT-PCR Negative (Negative); RSV RNA, RT-PCR Negative (Negative); SARS-CoV-2 RNA PCR Negative (Negative)
[2025-07-19 13:23] LABS: INR 1.0; Prothrombin Time 13.1 Seconds (11.1-14.7)
[2025-07-19 13:24] LABS: Partial Thromboplastin Time 24.5 Seconds (22.3-36.8)
[2025-07-19 13:29] LABS: Alanine Aminotransferase 117 U/L (6-35); Albumin Level 3.8 g/dL (3.5-5.1); Alkaline Phosphatase 169 U/L (38-126); Anion Gap 8 mmol/L (4-12); Aspartate Amino Transferase 253 U/L (14-36); Bilirubin,Total 0.8 mg/dL (0.2-1.3); Blood Urea Nitrogen 2 mg/dL (7-17); Calcium 8.3 mg/dL (8.4-10.2); Carbon Dioxide 31 mmol/L (22-30); Chloride 95 mmol/L (98-107); Estimated Glomerular Filt Rate > 60; Glucose 104 mg/dL (65-110); Potassium 2.9 mmol/L (3.4-5.0); Sodium 134 mmol/L (137-145); Total Protein 6.9 g/dL (6.3-8.2)
[2025-07-19 13:47] LABS: Lipase 86 U/L (23-300)
[2025-07-19] MEDS: ONDANSETRON INJ 4 MG/2 ML VIAL IV PUSH (14:02)
[2025-07-19] MEDS: MORPHINE SULFATE (*CRX) 4 MG/ML INJ IV PUSH (14:04)
[2025-07-19] MEDS: POTASSIUM CHLORIDE 20 MEQ ER TABLET 40 MEQ PO (14:08)
--- NOTE | 2025-07-19 15:01 | ED_ITS ---
HPI - General Adult General Chief complaint: Arrhythmia/Palpitations Stated complaint: shaky, heart palpitations Time Seen by Provider: 07/19/25 11:21 History of Present Illness HPI narrative: Patient is a 35-year-old female who presents ER feel in shaky and nauseous. She has been vomiting over last couple of days. No fevers or chills or sweats. No known sick contacts. It started after she drink a pint of alcohol. Patient is chronically ill and has a G-tube and also has a life vest. No dyspnea orthopnea. No leg edema Related Data Home Medications ?Medication ?Instructions ?Recorded ?Confirmed ?Last Taken ?Type ferrous sulfate 325 mg (65 mg 325 mg PO BID 03/28/24 1 04/13/25 08:00 History iron) tablet,delayed release 325 mg folic acid 1 mg tablet 1 mg feeding tube DAILY 11/1504/26/25 04/13/25 08:00 History 1 mg megestrol 20 mg tablet 20 mg feeding tube BID 03/2804/26/25 04/13/25 20:00 History 20 mg thiamine HCl (vitamin B1) 100 mg 100 mg feeding tube D AILY 03/28/24 04/26/25 04/13/25 20:00 History tablet 100 mg vitamin B complex (Vitamins B 1 cap feeding tube QAM 0 03/28/24 04/26/25 04/13/25 08:00 History Complex capsule) 1 cap lactose-reduced food with fiber See Rx Instructions .R oute .COMPLEX 08/07/24 04/26/25 01/26/25 History 0.06 gram-1.5 kcal/mL oral liquid (Jevity 1.5 Chriss) buspirone 15 mg tablet 15 mg feeding tube TID 01/0804/26/25 04/13/25 10:00 History 15 mg cyanocobalamin (vitamin B-12) 1,000 mcg feeding tube M ONTHLY 01/08/25 04/26/25 04/13/25 08:00 History 1,000 mcg tablet 1,000 mcg nicotine 14 mg/24 hr daily 1 patch transdermal Q24H 04/26/25 02/25/25 History transdermal patch ergocalciferol (vitamin D2) 1,250 1,250 mcg feeding tu be WEEKLY 02/13/25 04/26/25 02/25/25 History mcg (50,000 unit) capsule famotidine 20 mg tablet 20 mg PO HS 02/13/25 04/13/25 20:00 History 20 mg methocarbamol 750 mg tablet 750 mg feeding tube .q4hr 02/13/25 04/26/25 04/13/25 20:00 History 750 mg nadolol 20 mg tablet 20 mg feeding tube DAILY 04/26/25 04/13/25 08:00 History 20 mg magnesium oxide 420 mg tablet 420 mg PO DAILY 04/26/25 04/26/25 Unknown History neomycin-bacitracn Zn-polymyx 3.5 1 applic topical YAMIL LY PRN with 04/27/25 04/27/25 Unknown History mg-400 unit-5,000 unit/gram top PEG tube dressing kimball ges as needed oint (Antibiotic([id number])) Allergies Allergy/AdvReac Type Severity Reaction Status Date / Time latex Allergy Rash Verified 04/26/25 08:42 melatonin AdvReac Mild chest Verified 04/26/25 08:42 heaviness Review of Systems 2 Review of Systems: All systems reviewed & are unremarkable except as noted in HPI and below Constitutional: Constitutional: Reports no additional constitutional complaints ENT: Reports system reviewed and no additional complaints, except as documented Cardiovascular: Cardiovascular: Reports no additional cardiovascular complaints Respiratory: Respiratory: Reports no additional respiratory complaints Gastrointestinal: Gastrointestinal: Reports no additional gastrointestinal complaints [facility] Past Medical History Medical History Cardiac arrest with ventricular fibrillation October 2024 Adrenal insufficiency Depression with anxiety Avoidant/restrictive food intake disorder Cannabis abuse Elevated LFTs Mitral valve prolapse Surgical History Surgical History History of percutaneous endoscopic gastrostomy Family History Family History Mother Heart attack Mitral valve prolapse Grandparent Cancer Grandparent Mitral valve prolapse Social History Social History Social History: Surrogate medical decision maker: Jorge Luis Centeno, significant other. Code status: Full code. Smoking packs per day: 0.5 Smoking cigarettes per day: 10.0 Years smoked: 20 Smoking pack-years: 10.00 Smoking status: Current every day smoker Tobacco type: cigarettes Alcohol intake: current Drinks per week: 5 Alcohol use details: States she drinks 1 pint a week Substance use: never Substance use type: marijuana Other substance usage details: weekly Last use: 01/22/2025 Lack of Transportation: No Lack of Food: Never True Current Housing: I Have Housing Concerned About Future Housing: No Difficulty Paying Gas/Electric Bills: No Difficulty Paying for Meds: No Currently Unemployed: No Education: High School Diploma/GED Difficulty w/ Childcare or Family Care: No Living arrangements: with family Additional living arrangements comments: with 7 year old son and fibj? Occupation/Education: unemployed Spiritual care concerns: No Agree to blood products: Yes Exam 2 Narrative: GENERAL: Chronically ill-appearing, well-nourished, and in no acute distress. HEAD: Normocephalic, atraumatic. ENT: Mucous membranes moist. NECK: Supple. CHEST: Clear to auscultation. No respiratory distress. HEART: Regular rate and rhythm. Normal peripheral pulses. ABDOMEN: Soft, nontender, nondistended. EXTREMITIES: Normal range of motion. No edema. SKIN: Warm, dry, no rash. NEURO: Alert and oriented x3. PSYCH: Normal mood and affect. Course Course Emergency Course: Patient resting comfortably. Nausea under control. Patient has had her potassium replaced. Urinalysis with poor quality due to increased squamous epithelial cells. Will send for culture. Will not treat at this time as she does not have dysuria. Liver enzymes elevated likely related to the alcohol abuse. Appropriate for discharge. Vital Signs Vital signs: Vital Signs Pulse Rate 88 07/19/25 11:56 Temperature 98.3 F 07/19/25 11:57 Pulse Rate 86 07/19/25 13:01 Respiratory Rate 26 H 07/19/25 13:01 Blood Pressure 116/79 07/19/25 13:00 Pulse Oximetry 99 07/19/25 12:48 [facility] Differential Diagnosis Differential Diagnosis: Gastroenteritis, alcoholic hepatitis, viral syndrome, acid reflux Medical Records I have reviewed the following patient records and this information was taken into consideration when formulating the assessment and plan.: previous labs and previous ER visits Lab Data [facility] Lab Attestation statement: I personally reviewed the patient's lab results. 07/19/25 13:02 07/19/25 13:02 Labs: Lab Results 07/19/25 07/19/25 07/19/25 Range/Units 12:15 12:19 12:32 WBC (4.5-10.0) K/mm3 RBC (4.2-5.4) M/mm3 Hgb (12.0-15.0) g/dL Hct (37.0-47.0) % MCV (80-100) fl MCH (26-34) pg MCHC (32-36) g/dl RDW (11.5-14.5) % Plt Count (150-375) k/mm3 MPV (7.4-10.4) fl Immature Gran % (Auto) (0-0.5) % Neut % (Auto) (45.5-73.1) % Lymph % (Auto) (18.3-44.2) % [place] % (Auto) (2.6-8.5) % Eos % (Auto) (0-4.4) % Baso % (Auto) (0.2-1.2) % Lymph # (Auto) (0.9-3.2) K/mm3 [place] # (Auto) (0.1-0.6) K/mm3 Eos # (Auto) (0-0.3) K/mm3 Baso # (Auto) (0.0-0.1) K/mm3 Abs Immat Gran (auto) (0.00-0.031) K/mm3 Absolute Neuts (auto) (1.3-6.7) K/mm3 Absolute Nucleated RBC (0.0-0.012) K/mm3 Nucleated RBC % (0.0-0.2) % PT (11.1-14.7) Seconds INR APTT (22.3-36.8) Seconds Sodium (137-145) mmol/L Potassium (3.4-5.0) mmol/L Chloride (98-107) mmol/L Carbon Dioxide (22-30) mmol/L Anion Gap (4-12) mmol/L BUN (7-17) mg/dL Creatinine (0.7-1.0) mg/dL Estim Creat Clear Calc Estimated GFR (59 - ) Glucose (65-110) mg/dL Calcium (8.4-10.2) mg/dL Total Bilirubin (0.2-1.3) mg/dL AST (14-36) U/L ALT (6-35) U/L Alkaline Phosphatase (38-126) U/L Total Protein (6.3-8.2) g/dL Albumin (3.5-5.1) g/dL Lipase (23-300) U/L Urine Color Dark yellow (Yellow) Urine Appearance Turbid H (Clear) Urine pH 5.0 (5.0-9.0) Ur Specific [place] 1.023 (1.001-1.035) Urine Protein 1+ H (Negative) mg/dL Urine Glucose (UA) Negative (Negative) mg/dL Urine Ketones Negative (Negative) mg/dL Ur Blood (Man) Negative (Negative) Urine Nitrate Negative (Negative) Urine Bilirubin 1+ H (Negative) Urine Urobilinogen 1.0 (<2.0) mg/dL Add Ur Microanalysis Reviewed Leukocyte Esterase Rfl Trace H (Negative) BECKY/UL Urine RBC 6-10 H (0-2) /hpf Urine WBC 11-20 H (0-3) /hpf Ur Squamous Epith Cells Moderate (Few) /hpf Urine Bacteria 1+ H /hpf Urine Casts 11-20 POC Urine HCG, Qual Negative (Negative) Ethyl Alcohol (<10) mg/dL Influenza A (RT-PCR) Negative (Negative) Influenza B (RT-PCR) Negative (Negative) RSV (RT-PCR) Negative (Negative) SARS-CoV-2 RNA (RT-PCR) Negative (Negative) 07/19/25 Range/Units 13:02 WBC 4.4 L (4.5-10.0) K/mm3 RBC 4.45 (4.2-5.4) M/mm3 Hgb 15.4 H D (12.0-15.0) g/dL Hct 44.0 (37.0-47.0) % MCV 98.9 (80-100) fl MCH 34.6 H (26-34) pg MCHC 35.0 (32-36) g/dl RDW 14.4 (11.5-14.5) % Plt Count 146 L (150-375) k/mm3 MPV 10.5 H (7.4-10.4) fl Immature Gran % (Auto) 0.2 (0-0.5) % Neut % (Auto) 58.4 (45.5-73.1) % Lymph % (Auto) 30.3 (18.3-44.2) % [place] % (Auto) 9.0 H (2.6-8.5) % Eos % (Auto) 0.5 (0-4.4) % Baso % (Auto) 1.6 H (0.2-1.2) % Lymph # (Auto) 1.34 (0.9-3.2) K/mm3 [place] # (Auto) 0.4 (0.1-0.6) K/mm3 Eos # (Auto) 0.0 (0-0.3) K/mm3 Baso # (Auto) 0.1 (0.0-0.1) K/mm3 Abs Immat Gran (auto) 0.01 (0.00-0.031) K/mm3 Absolute Neuts (auto) 2.6 (1.3-6.7) K/mm3 Absolute Nucleated RBC 0.000 (0.0-0.012) K/mm3 Nucleated RBC % 0.0 (0.0-0.2) % PT 13.1 (11.1-14.7) Seconds INR 1.0 APTT 24.5 (22.3-36.8) Seconds Sodium 134 L (137-145) mmol/L Potassium 2.9 L (3.4-5.0) mmol/L Chloride 95 L (98-107) mmol/L Carbon Dioxide 31 H (22-30) mmol/L Anion Gap 8 (4-12) mmol/L BUN 2 L D (7-17) mg/dL Creatinine 0.62 L (0.7-1.0) mg/dL Estim Creat Clear Calc Not Reportable Estimated GFR > 60 (59 - ) Glucose 104 (65-110) mg/dL Calcium 8.3 L (8.4-10.2) mg/dL Total Bilirubin 0.8 (0.2-1.3) mg/dL AST 253 H (14-36) U/L ALT 117 H (6-35) U/L Alkaline Phosphatase 169 H (38-126) U/L Total Protein 6.9 (6.3-8.2) g/dL Albumin 3.8 (3.5-5.1) g/dL Lipase 86 (23-300) U/L Urine Color (Yellow) Urine Appearance (Clear) Urine pH (5.0-9.0) Ur Specific [place] (1.001-1.035) Urine Protein (Negative) mg/dL Urine Glucose (UA) (Negative) mg/dL Urine Ketones (Negative) mg/dL Ur Blood (Man) (Negative) Urine Nitrate (Negative) Urine Bilirubin (Negative) Urine Urobilinogen (<2.0) mg/dL Add Ur Microanalysis Leukocyte Esterase Rfl (Negative) BECKY/UL Urine RBC (0-2) /hpf Urine WBC (0-3) /hpf Ur Squamous Epith Cells (Few) /hpf Urine Bacteria /hpf Urine Casts POC Urine HCG, Qual (Negative) Ethyl Alcohol < 10 (<10) mg/dL Influenza A (RT-PCR) (Negative) Influenza B (RT-PCR) (Negative) RSV (RT-PCR) (Negative) SARS-CoV-2 RNA (RT-PCR) (Negative) Imaging Data Radiologist's impression: ITS Impressions Chest X-Ray 07/19/25 12:39 IMPRESSION: 1. No acute cardiopulmonary disease. ECG Data EKG #1: ECG completion date: 07/19/25 ECG completion time: 12:52 normal rate (75), sinus rhythm, non-specific ST changes, normal QRS and normal QT Discharge Plan Discharge Clinical Impression: Acute alcoholic hepatitis, Acute hypokalemia Patient Disposition: Home Condition: Stable Instructions: Hypokalemia (ED), Alcoholic Hepatitis (ED) Additional Instructions: Return to the emergency department if you develop severe abdominal pain, severe nausea and vomiting to the point where you are unable to keep down fluids, if you develop chest pain or difficulty breathing, blood in your stool, dizziness or fainting, or if you develop any other new or concerning symptoms as these could be signs of more serious medical illness. Try to stay well hydrated. Patient Language: Lao Prescriptions: New ondansetron 4 mg tablet,disintegrating 4 mg PO Q6H PRN (Reason: nausea and vomiting) Qty: 10 0RF potassium chloride 20 mEq/15 mL liquid 20 meq PO BID 5 Days Qty: 150 0RF No Action buspirone 15 mg tablet 15 mg feeding tube TID Patient Comments: 10 am then 8 pm normally cyanocobalamin (vitamin B-12) 1,000 mcg tablet 1,000 mcg feeding tube MONTHLY nicotine 14 mg/24 hr patch 24 hour 1 patch transdermal Q24H Xarelto 20 mg Tablet 20 mg PO DAILY@1700 Qty: 30 0RF ergocalciferol (vitamin D2) 1,250 mcg (50,000 unit) capsule 1,250 mcg feeding tube WEEKLY Patient Comments: famotidine 20 mg tablet 20 mg PO HS methocarbamol 750 mg tablet 750 mg feeding tube .q4hr nadolol 20 mg tablet 20 mg feeding tube DAILY magnesium oxide 420 mg tablet 420 mg PO DAILY Antibiotic ([id number]) 3.5mg-400 unit- 5,000 unit/gram ointment 1 applic topical DAILY PRN (Reason: with PEG tube dressing changes as needed) loperamide 2 mg Capsule 2 mg PO PRN PRN (Reason: Diarrhea) Qty: 30 0RF rifaximin 550 mg tablet 550 mg PO TID Qty: 40 0RF prednisone 2.5 mg tablet 2.5 mg PO BID Qty: 60 0RF thiamine HCl (vitamin B1) 100 mg tablet 100 mg feeding tube DAILY folic acid 1 mg tablet 1 mg feeding tube DAILY ferrous sulfate 325 mg (65 mg iron) tablet,delayed release (DR/EC) 325 mg PO BID Rx Instructions: patient administers via feeding tube megestrol 20 mg tablet 20 mg feeding tube BID Patient Comments: 8 am and 8 pm vitamin B complex [Vitamins B Complex] Capsule 1 cap feeding tube QAM Jevity 1.5 Chriss 0.06 gram-1.5 kcal/mL liquid See Rx Instructions .ROUTE .COMPLEX Rx Instructions: 75ml one to two times a day. potassium chloride 10 mEq capsule, extended release 10 meq feeding tube DAILY Qty: 60 0RF Follow-up/Referrals: Mo Mitchell MD [Primary Care Provider, Hospitalist] - 1 Week
== END 2025-07-19 15:40 | disposition home or self-care (01) ==
PROVIDERS: Emergency Provider Emergency Medicine; PCP Internal Medicine
DX: K70.10 Alcoholic hepatitis without ascites (principal); E87.6 Hypokalemia; F17.210 Nicotine dependence, cigarettes, uncomplicated; Z20.822 Contact with and (suspected) exposure to COVID-19
CPT/HCPCS: 36415; 71046; 80053; 81001; 81025; 82077; 83690; 85025; 85610; 85730; 87637; 93005; 96374; 96375; 99284; A9270; J2270; J2405